=== PATIENT | male | born 1955 | race Caucasian/White ===

== ENCOUNTER 2016-05-23 09:27 | Emergency (ER) | payer OTHER ==
[2016-05-23] MEDS ORDERED: SODIUM CHLORIDE 0.9% 1,000 ML IV STA (09:53)
--- NOTE | 2016-05-23 09:56 | ED ---
General Adult HPI - General Chief complaint: Headache Stated complaint: Headache Time Seen by Provider: 05/23/16 09:45 Source: EMS, RN notes reviewed Mode of arrival: EMS Limitations: no limitations - History of Present Illness Initial comments: Patient is a 61-year-old male who presents emergency room today by EMS, the chief complaint of a headache to the left side. He states he woke up at 4 AM this morning with a headache and some symptoms of numbness tingling to the side. States he was concerned he's had similar symptoms with a TIA in the past. Patient states that headache has been consistent over the last 6 hours. Patient denies any other associated symptoms or complaints. He does admit to a fractured tooth of tooth #17. Patient does move to rhinorrhea. Denies any other complaints. Patient denies any recent fever, chills, shortness of breath, chest pain, back pain, abdominal pain, nausea or vomiting, dysuria or hematuria , constipation or diarrhea, visual changes, or any other complaints. - Related Data Home Medications Medication Instructions Recorded Confirmed amLODIPine BESYLATE [Amlodipine 10 mg PO DAILY 01/29/16 05/23/16 Besylate] metFORMIN HCL 1,000 mg PO AC-BID 01/29/16 05/23/16 Previous Rx's Medication Instructions Recorded Metoprolol Tartrate [Lopressor] 50 mg PO BID #60 tab 01/30/16 Amoxicillin/Potassium Clav 1 each PO Q12HR #20 tab 05/23/16 [Augmentin 875-125 Tablet] Fluticasone Propionate [Flonase 1 - 2 spray EA NOSTRIL DAILY 5 Days 05/23/16 Allergy Relief] Ibuprofen [Motrin] 600 mg PO Q6HR PRN #40 day 05/23/16 Allergies Allergy/AdvReac Type Severity Reaction Status Date / Time tomato Allergy Nausea & Verified 05/23/16 09:37 Vomiting Review of Systems ROS Statement: Those systems with pertinent positive or pertinent negative responses have been documented in the HPI. ROS Other: All systems not noted in ROS Statement are negative. Past Medical History Past Medical History: Atrial Fibrillation, Chest Pain / Angina, CVA/TIA, Diabetes Mellitus, GERD/Reflux, Hypertension, Pulmonary Embolus (PE) Additional Past Medical History / Comment(s): Recent admission 11/2015 with bacterial septicemia. Other HX: TIA, NIDDM type II, high cholesterol but not on med yet, PE L lung 2012, cervical disc disease with neck pain,scoliosis, epilepsy when a child- last known seizure at age 11 however pt sometimes wonders if he has had some since (he gets body shakes and confused on occasion) , occasional popping sound to L ear, diverticulitis, viral gastroenteritis .pt stated has bouts of diarrhea off and on. History of Any Multi-Drug Resistant Organisms: None Reported Past Surgical History: Appendectomy, Cholecystectomy Past Anesthesia/Blood Transfusion Reactions: Previous Problems w/ Anesthesia Additional Past Anesthesia/Blood Transfusion Reaction / Comment(s): after appendix removed sob Past Psychological History: Anxiety, Depression Additional Psychological History / Comment(s): Pt lives in an apartment alone.e. Sometimes his sister stays with him. He uses a cane to ambulate at times. He drives. His sister cleans his apt. 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 Denies recreational drug use. His left him many years ago he has adult children that he does not see very often. No experience. No travel history. No animal exposures Smoking Status: Never smoker Past Alcohol Use History: Occasional Additional Past Alcohol Use History / Comment(s): pt stated drinks only on occasion. He will then drink a beer. Past Drug Use History: None Reported - Past Family History Mother Family Medical History: COPD, CVA/TIA Additional Family Medical History / Comment(s): from a stroke Father Family Medical History: Pneumonia Additional Family Medical History / Comment(s): Father of pneumonia when he was close to 80 yrs old. General Exam - General Exam Comments Initial Comments: General: The patient is awake and alert, in no distress, and does not appear acutely ill. Eye: Pupils are equal, round and reactive to light, extra-ocular movements are intact. No nystagmus. There is normal conjunctiva bilaterally. No signs of icterus. Ears, nose, mouth and throat: There are moist mucous membranes and no oral lesions. Patient does have tenderness over tooth #17. Tenderness over the maxillary sinuses. TMs clear bilaterally. Neck: The neck is supple, there is no tenderness or JVD. Cardiovascular: There is a regular rate and rhythm. No murmur, rub or gallop is appreciated. Respiratory: Lungs are clear to auscultation, respirations are non-labored, breath sounds are equal. No wheezes, stridor, rales, or rhonchi. Musculoskeletal: Normal ROM, no tenderness. Strength 5/5. Sensation intact. Pulses equal bilaterally 2+. Neurological: A&O x 3. CN II-XII intact, There are no obvious motor or sensory deficits. Coordination appears grossly intact. Speech is normal. Normal finger nose testing. Normal rapid alternating movements. Strength 5/5 bilaterally both upper and lower extremity's. Normal gait. Skin: Skin is warm and dry and no rashes or lesions are noted. Sensation intact to light touch left-sided face. Psychiatric: Cooperative, appropriate mood & affect, normal judgment. Limitations: no limitations Course Vital Signs 05/23/16 05/23/16 09:34 10:04 Temperature 97.3 F L Pulse Rate 106 H 97 Respiratory 18 18 Rate Blood Pressure 168/106 160/93 O2 Sat by Pulse 95 93 L Oximetry Medical Decision Making - Medical Decision Making Patient reexamined at this time shows no signs of distress. Patient's CAT scan of head and facial bones reviewed. Does show evidence of some mucosal thickening of the left maxillary sinus. Remaining exam unremarkable for any acute ever maladies. Patient's labs been reviewed mild elevated AST and ALT. His discussed with attending physician Dr. Nix. Patient will be discharged home and placed on antibiotics cover for sinusitis and also dental pain tenderness over tooth #17. Advised follow-up with dentist next week. Advised follow-up the family doctor in the next 2-3 days. Advised return if any symptoms increase or worsen. Patient states understanding and is in agreement. - Lab Data Result diagrams: 05/23/16 10:03 05/23/16 10:03 Lab Results 05/23/16 05/23/16 Range/Units 10:03 10:03 WBC 6.2 (3.8-10.6) k/uL RBC 4.30 (4.30-5.90) m/uL Hgb 14.6 (13.0-17.5) gm/dL Hct 43.3 (39.0-53.0) % MCV 100.6 H (80.0-100.0) fL MCH 33.9 (25.0-35.0) pg MCHC 33.7 (31.0-37.0) g/dL RDW 14.0 (11.5-15.5) % Plt Count 146 L (150-450) k/uL Neutrophils % 81 % Lymphocytes % 10 % Monocytes % 7 % Eosinophils % 1 % Basophils % 1 % Neutrophils # 5.0 (1.3-7.7) k/uL Lymphocytes # 0.6 L (1.0-4.8) k/uL Monocytes # 0.4 (0-1.0) k/uL Eosinophils # 0.0 (0-0.7) k/uL Basophils # 0.0 (0-0.2) k/uL Macrocytosis Slight Sodium 145 (137-145) mmol/L Potassium 4.2 (3.5-5.1) mmol/L Chloride 104 (98-107) mmol/L Carbon Dioxide 26 (22-30) mmol/L Anion Gap 15 mmol/L BUN 8 L (9-20) mg/dL Creatinine 0.76 (0.66-1.25) mg/dL Est GFR (MDRD) Af Amer >60 (>60 ml/min/1.73 sqM) Est GFR (MDRD) Non-Af >60 (>60 ml/min/1.73 sqM) Glucose 187 H (74-99) mg/dL Calcium 9.0 (8.4-10.2) mg/dL Magnesium 1.9 (1.6-2.3) mg/dL Total Bilirubin 0.6 (0.2-1.3) mg/dL AST 140 H (17-59) U/L ALT 112 H (21-72) U/L Alkaline Phosphatase 105 (38-126) U/L Total Protein 8.5 H (6.3-8.2) g/dL Albumin 4.3 (3.5-5.0) g/dL Disposition Clinical Impression: Acute sinusitis, Pain, dental Disposition: HOME SELF-CARE Condition: Good Instructions: Sinusitis (ED) Additional Instructions: Without family doctor over the next 2-3 days. Please follow-up with the dentist next week as discussed. Please use antibiotic as prescribed. Please use Flonase as prescribed. Please order picker [id number] Sudafed for her symptoms as discussed. Please use Tylenol/Motrin as needed for pain. Please return to emergency room if any symptoms increase worsen or for any other concerns. Prescriptions: Amoxicillin/Potassium Clav [Augmentin 875-125 Tablet] 1 each PO Q12HR #20 tab Fluticasone Propionate [Flonase Allergy Relief] 1 - 2 spray EA NOSTRIL DAILY 5 Days Ibuprofen [Motrin] 600 mg PO Q6HR PRN #40 day PRN Reason: Pain Time of Disposition: 11:17
[2016-05-23 10:24] LABS: ALT 112 U/L (21-72); AST 140 U/L (17-59); Alkaline Phosphatase 105 U/L (38-126); Anion Gap 15 mmol/L; Blood Urea Nitrogen 8 mg/dL (9-20); Carbon Dioxide 26 mmol/L (22-30); Chloride 104 mmol/L (98-107); Glucose 187 mg/dL (74-99); Magnesium 1.9 mg/dL (1.6-2.3); Non-African American GFR(MDRD) >60 (>60 ml/min/1.73 sqM); Potassium 4.2 mmol/L (3.5-5.1); Sodium 145 mmol/L (137-145); Total Bilirubin 0.6 mg/dL (0.2-1.3); Total Protein 8.5 g/dL (6.3-8.2)
[2016-05-23 10:36] LABS: Basophils % (A) 1 %; CH 33.6; CHCM 33.5; Eosinophils % (A) 1 %; HCT 43.3 % (39.0-53.0); HGB 14.6 gm/dL (13.0-17.5); Luc # (Auto) 0.05; Luc % (Auto) 1; Lymphocytes # (A) 0.6 k/uL (1.0-4.8); Lymphocytes % (A) 10 %; MCH 33.9 pg (25.0-35.0); MCHC 33.7 g/dL (31.0-37.0); MCV 100.6 fL (80.0-100.0); Macrocytosis Slight; Mean Platelet Volume 7.5; Monocytes # (A) 0.4 k/uL (0-1.0); Monocytes % (A) 7 %; Neutrophils % (A) 81 %; WBC 6.2 k/uL (3.8-10.6); WBC (Perox) 6.49
--- NOTE | 2016-05-23 11:04 | CT ---
EXAMINATION TYPE: CT brain wo con, CT facial bones wo con DATE OF EXAM: 05/23/2016 10:55 AM COMPARISON: CT brain September 21, 2015 HISTORY: No contrast. Prior study on PACS. Patient having left sided facial numbness and pain across infraorbital area since yesterday. Patient having gagging sensation with vomiting. CT DLP: 1034 (accession [id number]), 639 (accession [id number]) mGycm. Automated Exposure Control for Do se Reduction was Utilized. TECHNIQUE: CT scan of the head and facial bones are performed without contrast. FINDINGS: There is no acute intracranial hemorrhage or midline shift identified. There is diffuse v entricular and sulcal prominence consistent with diffuse age-related cerebral atrophy. There is low- attenuation in the periventricular white matter consistent with chronic small vessel ischemic change. The calvarium is intact. The nasal bridge is intact. Nasal septum is maintained. Orbital floors and pak are intact. The glob es are intact bilaterally. Intraconal fat is preserved. The zygomatic arches are intact bilaterally. The pterygoid plates are intact. Visualized portion of mandible is intact. Temporomandibular joints a re maintained bilaterally. No suspicious opacification of mastoid air cells is seen. Patchy opacifica tion bilateral external auditory canals is felt to reflect cerumen. There is mild to moderate mucosal thickening inferiorly in left maxillary sinus otherwise paranasal sinuses are clear. IMPRESSION: 1. No acute intracranial hemorrhage or midline shift. There is mild diffuse age-related cerebral atr ophy and chronic small vessel ischemic change redemonstrated without significant change from prior. 2. There is no acute facial bone fracture or dislocation seen.
[2016-05-23] MEDS ORDERED: KETOROLAC 30 MG/ML 1 ML VIAL IVP STA (11:17)
[2016-05-23 11:43] VITALS: BP 160/92; PULSE 106; RESP 16; TEMP 98.6
== END 2016-05-23 11:42 | disposition home or self-care (01) ==
LOC: EC 09:27
DX: J01.90 Acute sinusitis, unspecified (principal); K08.89 Other specified disorders of teeth and supporting structures; Z79.84 Long term (current) use of oral hypoglycemic drugs; Z79.899 Other long term (current) drug therapy; I10 Essential (primary) hypertension; E11.9 Type 2 diabetes mellitus without complications; Z91.018 Allergy to other foods; Z86.73 Personal history of transient ischemic attack (TIA), and cerebral infarction without residual deficits
CPT/HCPCS: 96374; 96361; 99285; 36415; 80053; 83735; 85025; 70486; 70450; J1885

== ENCOUNTER 2016-09-01 20:50 | Observation (INO) | payer OTHER ==
[2016-09-01] MEDS ORDERED: ONDANSETRON 4 MG/2 ML VIAL IVP STA (21:10)
[2016-09-01] MEDS ORDERED: SODIUM CHLORIDE 0.9% 1,000 ML IV STA (21:10)
--- NOTE | 2016-09-01 21:14 | ED ---
General Adult HPI - General Source: patient, RN notes reviewed, old records reviewed Mode of arrival: EMS Limitations: no limitations <Rolando Shabazz - Last Filed: 09/01/16 22:57> <Boyd Hand - Last Filed: 09/01/16 23:16> - General Chief complaint: Headache Stated complaint: HEADACHE,NAUSEA Time Seen by Provider: 09/01/16 21:05 - History of Present Illness Initial comments: Patient is 61-year-old male with significant past history for CVA, who presents emergency room today by EMS, with chief complaint of symptoms of nausea vomiting with headache over the last 4 days. He does admit that symptoms of nausea vomiting started first. He does admit that he's had a headache located in the front of several past 3 days. He states that it is a sharp type pain located up front. He states had similar symptoms of nausea vomiting and headache a few years ago when he was told he had a mild stroke. Patient denies any other complaints or symptoms at this time. Patient denies any recent fever, chills, shortness of breath, chest pain, back pain, abdominal pain, numbness or tingling, dysuria or hematuria, constipation or diarrhea, visual changes, or any other complaints. (Rolando Shabazz) - Related Data Home Medications Medication Instructions Recorded Confirmed amLODIPine BESYLATE [Amlodipine 10 mg PO DAILY 01/29/16 09/01/16 Besylate] metFORMIN HCL 1,000 mg PO BID 01/29/16 09/01/16 Fluticasone Propionate [Flonase 1 spray EA NOSTRIL DAILY PRN 09/01/16 09/01/16 Allergy Relief] Previous Rx's Medication Instructions Recorded Metoprolol Tartrate [Lopressor] 50 mg PO BID #60 tab 01/30/16 Allergies Allergy/AdvReac Type Severity Reaction Status Date / Time tomato AdvReac Indigestion Verified 09/01/16 22:54 Review of Systems ROS Other: All systems not noted in ROS Statement are negative. <Rolando Shabazz - Last Filed: 09/01/16 22:57> ROS Other: All systems not noted in ROS Statement are negative. <Boyd Hand - Last Filed: 09/01/16 23:16> ROS Statement: Those systems with pertinent positive or pertinent negative responses have been documented in the HPI. Past Medical History Past Medical History: Atrial Fibrillation, Chest Pain / Angina, CVA/TIA, Diabetes Mellitus, GERD/Reflux, Hypertension, Pulmonary Embolus (PE) Additional Past Medical History / Comment(s): Recent admission 11/2015 with bacterial septicemia. Other HX: TIA, NIDDM type II, high cholesterol but not on med yet, PE L lung 2011, cervical disc disease with neck pain,scoliosis, epilepsy when a child- last known seizure at age 11 however pt sometimes wonders if he has had some since (he gets body shakes and confused on occasion) , occasional popping sound to L ear, diverticulitis, viral gastroenteritis .pt stated has bouts of diarrhea off and on. History of Any Multi-Drug Resistant Organisms: None Reported Past Surgical History: Appendectomy, Cholecystectomy Past Anesthesia/Blood Transfusion Reactions: Previous Problems w/ Anesthesia Additional Past Anesthesia/Blood Transfusion Reaction / Comment(s): after appendix removed sob Past Psychological History: Anxiety, Depression Additional Psychological History / Comment(s): Pt lives in an apartment alone.e. Sometimes his sister stays with him. He uses a cane to ambulate at times. He drives. His sister cleans his apt. 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 Denies recreational drug use. His left him many years ago he has adult children that he does not see very often. No experience. No travel history. No animal exposures Smoking Status: Never smoker Past Alcohol Use History: Occasional Additional Past Alcohol Use History / Comment(s): pt stated drinks only on occasion. He will then drink a beer. Past Drug Use History: None Reported - Past Family History Mother Family Medical History: COPD, CVA/TIA Additional Family Medical History / Comment(s): from a stroke Father Family Medical History: Pneumonia Additional Family Medical History / Comment(s): Father of pneumonia when he was close to 80 yrs old. <Rolando Shabazz - Last Filed: 09/01/16 22:57> General Exam Limitations: no limitations <Rolando Shabazz - Last Filed: 09/01/16 22:57> <Boyd Hand - Last Filed: 09/01/16 23:16> - General Exam Comments Initial Comments: General: The patient is awake and alert, in no distress, and does not appear acutely ill. Eye: Pupils are equal, round and reactive to light, extra-ocular movements are intact. No nystagmus. There is normal conjunctiva bilaterally. No signs of icterus. Ears, nose, mouth and throat: There are moist mucous membranes and no oral lesions. Neck: The neck is supple, there is no tenderness or JVD. Cardiovascular: There is a regular rate and rhythm. No murmur, rub or gallop is appreciated. Respiratory: Lungs are clear to auscultation, respirations are non-labored, breath sounds are equal. No wheezes, stridor, rales, or rhonchi. Gastrointestinal: Soft, non-distended, non-tender abdomen without masses or organomegaly noted. There is no rebound or guarding present. No CVA tenderness. Bowel sounds are unremarkable. Musculoskeletal: Normal ROM, no tenderness. Strength 5/5. Sensation intact. Pulses equal bilaterally 2+. Neurological: A&O x 3. CN II-XII intact, There are no obvious motor or sensory deficits. Coordination appears grossly intact. Speech is normal. Skin: Skin is warm and dry and no rashes or lesions are noted. Psychiatric: Cooperative, appropriate mood & affect, normal judgment. (Rolando Shabazz) EKG Findings - EKG Comments: EKG Findings:: EKG performed at 2142: Shows normal sinus rhythm at 90 bpm. NJ interval 168. QRS 80. QT/QTc 404/494. No acute ST changes. prolonged QT. <Rolando Shabazz - Last Filed: 09/01/16 22:57> Medical Decision Making - Lab Data Result diagrams: 09/01/16 21:30 09/01/16 21:30 <Rolando Shabazz - Last Filed: 09/01/16 22:57> - Lab Data Result diagrams: 09/01/16 21:30 09/01/16 21:30 <Boyd Hand - Last Filed: 09/01/16 23:16> - Medical Decision Making Patient's CT negative for any acute abnormalities. Patient's labs been reviewed mild elevation of AST ALT. Patient does have history of nausea vomiting with headache. Admits to history of a CVA with similar symptoms. Patient will be admitted for further observation. (Rolando Shabazz) Medical decision making. I reviewed the patient's history, EKG and past history and examined the patient at bedside. The patient has no focal or lateralizing findings. CAT scan was negative. No focal or lateralizing findings. I discussed the case with (Boyd Hand) - Lab Data Lab Results 09/01/16 09/01/16 09/01/16 Range/Units 21:30 21:30 21:30 WBC 6.7 (3.8-10.6) k/uL RBC 4.56 (4.30-5.90) m/uL Hgb 15.5 (13.0-17.5) gm/dL Hct 46.8 (39.0-53.0) % MCV 102.6 H (80.0-100.0) fL MCH 34.0 (25.0-35.0) pg MCHC 33.1 (31.0-37.0) g/dL RDW 14.4 (11.5-15.5) % Plt Count 129 L (150-450) k/uL Neutrophils % 72 % Lymphocytes % 18 % Monocytes % 8 % Eosinophils % 0 % Basophils % 1 % Neutrophils # 4.8 (1.3-7.7) k/uL Lymphocytes # 1.2 (1.0-4.8) k/uL Monocytes # 0.5 (0-1.0) k/uL Eosinophils # 0.0 (0-0.7) k/uL Basophils # 0.1 (0-0.2) k/uL Macrocytosis Slight PT (9.0-12.0) sec INR (<1.1) APTT (22.0-30.0) sec Sodium 136 L (137-145) mmol/L Potassium 4.1 (3.5-5.1) mmol/L Chloride 95 L (98-107) mmol/L Carbon Dioxide 28 (22-30) mmol/L Anion Gap 13 mmol/L BUN 8 L (9-20) mg/dL Creatinine 0.71 (0.66-1.25) mg/dL Est GFR (MDRD) Af Amer >60 (>60 ml/min/1.73 sqM) Est GFR (MDRD) Non-Af >60 (>60 ml/min/1.73 sqM) Glucose 146 H (74-99) mg/dL Calcium 10.3 H (8.4-10.2) mg/dL Total Bilirubin 1.5 H (0.2-1.3) mg/dL AST 190 H (17-59) U/L ALT 115 H (21-72) U/L Alkaline Phosphatase 93 (38-126) U/L Total Creatine Kinase 303 H (55-170) U/L CK-MB (CK-2) 1.5 (0.0-2.4) ng/mL CK-MB (CK-2) Rel Index 0.5 Troponin I 0.014 (0.000-0.034) ng/mL Total Protein 9.4 H (6.3-8.2) g/dL Albumin 4.5 (3.5-5.0) g/dL 09/01/16 Range/Units 21:30 WBC (3.8-10.6) k/uL RBC (4.30-5.90) m/uL Hgb (13.0-17.5) gm/dL Hct (39.0-53.0) % MCV (80.0-100.0) fL MCH (25.0-35.0) pg MCHC (31.0-37.0) g/dL RDW (11.5-15.5) % Plt Count (150-450) k/uL Neutrophils % % Lymphocytes % % Monocytes % % Eosinophils % % Basophils % % Neutrophils # (1.3-7.7) k/uL Lymphocytes # (1.0-4.8) k/uL Monocytes # (0-1.0) k/uL Eosinophils # (0-0.7) k/uL Basophils # (0-0.2) k/uL Macrocytosis PT 12.9 H (9.0-12.0) sec INR 1.3 (<1.1) APTT 27.3 (22.0-30.0) sec Sodium (137-145) mmol/L Potassium (3.5-5.1) mmol/L Chloride (98-107) mmol/L Carbon Dioxide (22-30) mmol/L Anion Gap mmol/L BUN (9-20) mg/dL Creatinine (0.66-1.25) mg/dL Est GFR (MDRD) Af Amer (>60 ml/min/1.73 sqM) Est GFR (MDRD) Non-Af (>60 ml/min/1.73 sqM) Glucose (74-99) mg/dL Calcium (8.4-10.2) mg/dL Total Bilirubin (0.2-1.3) mg/dL AST (17-59) U/L ALT (21-72) U/L Alkaline Phosphatase (38-126) U/L Total Creatine Kinase (55-170) U/L CK-MB (CK-2) (0.0-2.4) ng/mL CK-MB (CK-2) Rel Index Troponin I (0.000-0.034) ng/mL Total Protein (6.3-8.2) g/dL Albumin (3.5-5.0) g/dL Disposition Time of Disposition: 22:58 <Rolando Shabazz - Last Filed: 09/01/16 22:57> <Boyd Hand - Last Filed: 09/01/16 23:16> Clinical Impression: Headache Disposition: ADMITTED IP TO THIS HOSP Condition: Good Referrals: Doug Beck MD [Primary Care Provider] - 1-2 days
--- NOTE | 2016-09-01 21:33 | XR ---
EXAMINATION TYPE: XR chest 2V DATE OF EXAM: 09/01/2016 9:22 PM COMPARISON: 01/29/2016 HISTORY: Vomiting and headache TECHNIQUE: Frontal and lateral views of the chest are obtained. FINDINGS: There is no heart failure. There is coarse lung markings in the left lower lobe. The right lung is clear. There is no sign of pleural effusion. Thoracic aorta is atheromatous. IMPRESSION: Mild pulmonary fibrotic changes. No definite acute lung disease and no change compared t o old exam. Normal heart.
--- NOTE | 2016-09-01 21:41 | CT ---
EXAMINATION TYPE: CT brain wo con DATE OF EXAM: 09/01/2016 9:35 PM COMPARISON: 05/23/2016 HISTORY: Headache and nausea with vomiting x [address] DLP: 1171.00 mGycm Automated exposure control for dose reduction was used. FINDINGS: There is mild cerebral cortical atrophy. There is no mass effect nor midline shift. There is no sign of intracranial hemorrhage. The calvarium is intact. IMPRESSION: Mild atrophy. Otherwise negative head CT scan. No change.
[2016-09-01 21:56] LABS: Basophils # (A) 0.1 k/uL (0-0.2); Basophils % (A) 1 %; CH 34.7; Eosinophils % (A) 0 %; HCT 46.8 % (39.0-53.0); HDW 2.11; HGB 15.5 gm/dL (13.0-17.5); Luc # (Auto) 0.06; Luc % (Auto) 1; Lymphocytes # (A) 1.2 k/uL (1.0-4.8); Lymphocytes % (A) 18 %; MCHC 33.1 g/dL (31.0-37.0); MCV 102.6 fL (80.0-100.0); Macrocytosis Slight; Mean Platelet Volume 7.3; Monocytes # (A) 0.5 k/uL (0-1.0); Monocytes % (A) 8 %; Neutrophils # (A) 4.8 k/uL (1.3-7.7); Neutrophils % (A) 72 %; RBC 4.56 m/uL (4.30-5.90); RDW 14.4 % (11.5-15.5); WBC 6.7 k/uL (3.8-10.6); WBC (Perox) 6.48
[2016-09-01 22:08] LABS: ALT 115 U/L (21-72); AST 190 U/L (17-59); Alkaline Phosphatase 93 U/L (38-126); Anion Gap 13 mmol/L; Blood Urea Nitrogen 8 mg/dL (9-20); Calcium 10.3 mg/dL (8.4-10.2); Carbon Dioxide 28 mmol/L (22-30); Chloride 95 mmol/L (98-107); Glucose 146 mg/dL (74-99); Non-African American GFR(MDRD) >60 (>60 ml/min/1.73 sqM); Sodium 136 mmol/L (137-145); Total Bilirubin 1.5 mg/dL (0.2-1.3); Total Protein 9.4 g/dL (6.3-8.2)
[2016-09-01 22:09] LABS: INR 1.3 (<1.1); Partial Thromboplastin Time 27.3 sec (22.0-30.0); Potassium 4.1 mmol/L (3.5-5.1); Prothrombin Time 12.9 sec (9.0-12.0)
[2016-09-01 22:35] LABS: Creatine Kinase MB 1.5 ng/mL (0.0-2.4); Troponin I 0.014 ng/mL (0.000-0.034)
[2016-09-01] MEDS ORDERED: HYDROmorphone 1 MG/ML 1 ML SYRINGE IVP STA (22:53)
[2016-09-01] MEDS ORDERED: HYDROmorphone 1 MG/ML 1 ML SYRINGE IV PRN (22:54)
[2016-09-01] MEDS ORDERED: SODIUM CHLORIDE 0.9% 1,000 ML IV ONE (22:54)
[2016-09-01] MEDS ORDERED: ACETAMINOPHEN TAB 325 MG TAB PO PRN (22:54)
[2016-09-01] MEDS ORDERED: NALOXONE 0.4 MG/ML 1 ML VIAL IV PRN (22:54)
[2016-09-01] MEDS ORDERED: ENALAPRILAT 1.25 MG/ML 1 ML VIAL IVP PRN (23:17)
[2016-09-01] MEDS ORDERED: ENALAPRILAT 1.25 MG/ML 1 ML VIAL IVP STA (23:17)
--- NOTE | 2016-09-01 23:32 | US ---
EXAMINATION TYPE: US abdomen limited DATE OF EXAM: 09/01/2016 11:23 PM COMPARISON: NONE CLINICAL HISTORY: Pain. EXAM MEASUREMENTS: Liver Length: 16.3 cm Gallbladder Wall: Surgically absent cm CBD: 0.5 cm Right Kidney: 10.4 x 5.2 x 4.9 cm Pancreas: Obscured by bowel gas Liver: Heterogeneous, coarse echotexture Gallbladder: Surgically absent Evidence for sonographic Shaw's sign: No CBD: wnl Right Kidney: No hydronephrosis or masses seen IMPRESSION: Cholecystectomy. No dilated ducts.
[2016-09-01 23:51] LABS: Hepatitis B Surface Ag Index 0.06
[2016-09-01 23:56] LABS: Hepatitis B Core IgM Index 0.04
[2016-09-02 00:08] LABS: Hepatitis C Virus IgG Index 0.02
[2016-09-02 00:09] LABS: Hepatitis C Virus IgG Ab Negative (Negative)
[2016-09-02 00:33] VITALS: BMI 24.0
[2016-09-02 00:52] LABS: Glucose,Whole Blood 162 mg/dL (75-99)
[2016-09-02] MEDS: METOCLOPRAMIDE 5 MG/ML 2 ML VIAL IVP SCH ×2 (01:09→04:56)
[2016-09-02 07:03] LABS: Glucose,Whole Blood 94 mg/dL (75-99)
[2016-09-02 07:44] VITALS: BP 140/83; PULSE 72; RESP 18; TEMP 97.8
[2016-09-02 07:55] LABS: Basophils % (A) 1 %; CH 34.2; CHCM 33.3; Eosinophils # (A) 0.1 k/uL (0-0.7); Eosinophils % (A) 2 %; HDW 2.09; HGB 15.2 gm/dL (13.0-17.5); Luc # (Auto) 0.08; Luc % (Auto) 1; Lymphocytes # (A) 1.9 k/uL (1.0-4.8); Lymphocytes % (A) 34 %; MCH 33.6 pg (25.0-35.0); MCHC 32.5 g/dL (31.0-37.0); MCV 103.4 fL (80.0-100.0); Macrocytosis Slight; Mean Platelet Volume 7.3; Monocytes # (A) 0.4 k/uL (0-1.0); Monocytes % (A) 6 %; Neutrophils # (A) 3.2 k/uL (1.3-7.7); Neutrophils % (A) 57 %; RBC 4.54 m/uL (4.30-5.90); RDW 14.1 % (11.5-15.5); WBC 5.7 k/uL (3.8-10.6); WBC (Perox) 5.84
[2016-09-02 08:17] LABS: ALT 102 U/L (21-72); AST 159 U/L (17-59); Alkaline Phosphatase 84 U/L (38-126); Anion Gap 14 mmol/L; Blood Urea Nitrogen 9 mg/dL (9-20); Calcium 9.6 mg/dL (8.4-10.2); Carbon Dioxide 26 mmol/L (22-30); Chloride 98 mmol/L (98-107); Glucose 105 mg/dL (74-99); Non-African American GFR(MDRD) >60 (>60 ml/min/1.73 sqM); Potassium 3.8 mmol/L (3.5-5.1); Sodium 138 mmol/L (137-145); Total Bilirubin 1.9 mg/dL (0.2-1.3); Total Protein 8.6 g/dL (6.3-8.2)
--- NOTE | 2016-09-02 09:42 | P.HPIM ---
History of Present Illness H&P Date: 09/02/16 a 61-year-old male presented on the day of admission to the emergency room with a chief complaint of developing a headache. Patient activated the EMS system and [facility] Patient stated the symptoms started several days ago. He stated he felt nauseated and started vomiting. Patient states the headache is in the front part of the head. He describes it as a sharp pain. Patient stated that he did run out of his blood pressure medication.patient was seen in the emergency room was done noted to have mild elevation of the AST and ALT. Patient gives a history of having a prior CVA. The CAT scan of the brain obtained in the emergency room showed no acute abnormality. The EKG was unremarkable. The patient had no focal or lateralizing findings.in the emergency room the blood pressure is 154/91. Subsequently the patient was admitted to the services of the attending Review of Systems essentially unremarkable except for mentioned in the present illness Past Medical History Past Medical History: Atrial Fibrillation, Chest Pain / Angina, CVA/TIA, Diabetes Mellitus, GERD/Reflux, Hyperlipidemia, Hypertension, Pulmonary Embolus (PE) Additional Past Medical History / Comment(s): Recent admission 11/2015 with bacterial septicemia. Other HX: TIA, NIDDM type II, high cholesterol but not on med yet, PE L lung 2011, cervical disc disease with neck pain,scoliosis, epilepsy when a child- last known seizure at age 11 however pt sometimes wonders if he has had some since (he gets body shakes and confused on occasion) , occasional popping sound to L ear, diverticulitis, viral gastroenteritis .pt stated has bouts of diarrhea off and on. History of Any Multi-Drug Resistant Organisms: None Reported Past Surgical History: Appendectomy, Cholecystectomy Past Anesthesia/Blood Transfusion Reactions: Previous Problems w/ Anesthesia Additional Past Anesthesia/Blood Transfusion Reaction / Comment(s): after appendix removed sob Past Psychological History: Anxiety, Depression Additional Psychological History / Comment(s): Pt lives in an apartment alone.e. Sometimes his sister stays with him. He uses a cane to ambulate at times. He drives. His sister cleans his apt. 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 Denies recreational drug use. His left him many years ago he has adult children that he does not see very often. No experience. No travel history. No animal exposures Smoking Status: Never smoker Past Alcohol Use History: Occasional Additional Past Alcohol Use History / Comment(s): pt stated drinks only on occasion. He will then drink a beer. Past Drug Use History: None Reported - Past Family History Mother Family Medical History: COPD, CVA/TIA Additional Family Medical History / Comment(s): from a stroke Father Family Medical History: Pneumonia Additional Family Medical History / Comment(s): Father of pneumonia when he was close to 80 yrs old. Medications and Allergies Home Medications Medication Instructions Recorded Confirmed Type amLODIPine BESYLATE [Amlodipine 10 mg PO DAILY 01/29/16 09/02/16 History Besylate] metFORMIN HCL 1,000 mg PO BID 01/29/16 09/02/16 History Fluticasone Propionate [Flonase 1 spray EA NOSTRIL DAILY PRN 09/01/16 09/02/16 History Allergy Relief] Allergies Allergy/AdvReac Type Severity Reaction Status Date / Time egg Allergy Rash/Hives Verified 09/02/16 00:41 lisinopril Allergy Rash/Hives Verified 09/02/16 00:26 tomato AdvReac Indigestion Verified 09/01/16 22:54 surgical tape AdvReac Rash/Hives Uncoded 09/02/16 00:42 Physical Exam Vitals: Vital Signs Temp Pulse Pulse Resp BP BP Pulse Ox 09/02/16 07:42 97.8 F 72 18 140/83 96 09/02/16 04:00 98.1 F 58 L 16 131/86 94 L 09/02/16 00:43 97.8 F 85 16 154/91 92 L 09/02/16 00:00 16 09/01/16 23:41 75 16 150/98 98 09/01/16 23:10 85 16 178/95 98 Intake and Output 09/01/16 09/02/16 09/02/16 22:59 06:59 14:59 Intake Total 576 Balance 576 Intake: Oral 456 Tube Feeding 120 Other: Voiding Method Toilet Toilet Weight 65.7 kg GENERAL APPEARANCE: 61-year-old male patient is alert, oriented, in no acute distress.patient states headache is gone VITAL SIGNS: reviewed HEENT: Head is normocephalic and atraumatic. Pupils are equal and reactive. The nares are patent. Oropharynx is clear without lesions. NECK: Supple without lymphadenopathy. Traches midline. HEART: S1, S2. Regular rate and rhythm.denying chest pain no murmur monitor sinus LUNGS: No crackles or wheezes are heard.adequate air movement bilaterally on room air sats are greater than 95% ABDOMEN: Soft, nontender, nondistended with good bowel sounds. No peritoneal signs. No palpable organomegaly or masses. EXTREMITIES: Normal skin color and turgor. No cyanosis, rash, ulceration, clubbing or edema. Radial pedal pulses are 2/4 bilaterally.no pronator drift noted NEUROLOGICAL: No focal deficits. Strength and sensation are grossly intact. Results CBC & Chem 7: 09/02/16 07:28 09/02/16 07:28 Labs: Abnormal Lab Results - Last 24 Hours (Table) 09/02/16 09/02/16 09/02/16 Range/Units 00:40 07:28 07:28 MCV 103.4 H (80.0-100.0) fL Plt Count 132 L (150-450) k/uL Glucose 105 H (74-99) mg/dL POC Glucose (mg/dL) 162 H (75-99) mg/dL Total Bilirubin 1.9 H (0.2-1.3) mg/dL AST 159 H (17-59) U/L ALT 102 H (21-72) U/L Total Protein 8.6 H (6.3-8.2) g/dL Thrombosis Risk Factor Assmnt - Choose All That Apply Each Factor Represents 1 point: Age 41-60 years Thrombosis Risk Factor Assessment Total Risk Factor Score: 1 Thrombosis Risk Factor Assessment Level: Low Risk Assessment and Plan Plan: impression Present on admission nausea vomiting with frontal headache suspect due to hypertension urgency History of hypertension Present on admission hypertension urgency suspect due to noncompliant blood pressure meds ran out of blood pressure meds on admission 193/104 Present on admission mildly elevated AST and ALTwith a negative hepatitis panel Plan Restart home meds Stress the importance of compliant with taking medication as directed Prepped for discharge The above dictated assessment and findings were discussed with dr zhong Impression and the plan of care have been dictated as directed. Lily Moreno nurse practitioner acting as a scribe for dr zhong
--- NOTE | 2016-09-02 09:57 | P.DS ---
Providers Date of admission: 09/01/16 22:58 Expected date of discharge: 09/02/16 Attending physician: Doug Zhong Primary care physician: Doug Zhong [facility] Course: a 61-year-old male presented on the day of admission to the emergency room with a chief complaint of developing a headache. Patient activated the EMS system and was [facility] Patient stated the symptoms started several days ago. He stated he felt nauseated and started vomiting. Patient states the headache is in the front part of the head. He describes it as a sharp pain. Patient stated that he did run out of his blood pressure medication. patient was seen in the emergency room was done noted to have mild elevation of the AST and ALT. Patient gives a history of having a prior CVA. The CAT scan of the brain obtained in the emergency room showed no acute abnormality. The EKG was unremarkable. The patient had no focal or lateralizing findings.in the emergency room the blood pressure is 198/104. Subsequently the patient was admitted to the services of the attending patient lives in [place] with his sister in an apartment patient states he does not drink alcohol every day but occasionally will drink a beerit's noted that the patient was not on a cholesterol lowering drug secondary to the elevated AST and ALT impression Present on admission nausea vomiting with frontal headache suspect due to hypertension urgency History of hypertension Present on admission hypertension urgency suspect due to noncompliant blood pressure meds ran out of blood pressure meds on admission 193/104 Present on admission mildly elevated AST and ALTwith a negative hepatitis panel echocardiogram done in November 2015 left ventricular systolic function normal EF 55 -60% Type 2 diabetes non-insulin The above dictated assessment and findings were discussed with dr farheen Porter and the plan of care have been dictated as directed. Lily Moreno nurse practitioner acting as a scribe for dr zhong Patient Condition at Discharge: Good Plan - Discharge Summary New Discharge Prescriptions: Metoprolol Tartrate [Lopressor] 50 mg PO BID #60 tab amLODIPine BESYLATE [Norvasc] 10 mg PO DAILY #30 tablet metFORMIN HCL 1,000 mg PO BID #60 tablet Discharge Medication List amLODIPine BESYLATE [Amlodipine Besylate] 10 mg PO DAILY 01/29/16 [History] Fluticasone Propionate [Flonase Allergy Relief] 1 spray EA NOSTRIL DAILY PRN [History] Metoprolol Tartrate [Lopressor] 50 mg PO BID #60 tab 09/02/16 [Rx] amLODIPine BESYLATE [Norvasc] 10 mg PO DAILY #30 tablet 09/02/16 [Rx] metFORMIN HCL 1,000 mg PO BID #60 tablet 09/02/16 [Rx] Follow up Appointment(s)/Referral(s): Doug Zhong MD [Primary Care Provider] - 1-2 days Discharge Disposition: HOME SELF-CARE
--- NOTE | 2016-09-02 16:56 | HP ---
DATE OF ADMISSION: 09/01/2016 CHIEF COMPLAINT: Headache and uncontrolled hypertension. HISTORY OF PRESENT ILLNESS: This is another admission for this 61-year-old white male with hypertension who also drinks. He also has some personality issues. He came to the emergency room with a headache and elevated blood pressure. He had been drinking. He also apparently had some nausea and vomiting. REVIEW OF SYSTEMS: He denies any focal neurologic deficits, change in vision or hearing, cough, hemoptysis, orthopnea, PND, angina, murmurs, rheumatic fever, abdominal pain, hematemesis, melena, hematochezia, jaundice, pancreatitis, renal disease, dysuria, frequency, urgency, diabetes, etc. Past medical history, family history, and personal and social histories reveal that he has had been on: 1. Vicodin p.r.n. 2. Flexeril p.r.n. 3. Ibuprofen 800 mg q.i.d. p.r.n. 4. Norvasc 10 mg twice a day. 5. Metoprolol 50 mg twice a day. 6. Metformin 1 gram twice a day. Remainder of his history is unremarkable. He does not disclose how much he drinks. He has never smoked. He apparently has run out of one or both of his antihypertensives. PHYSICAL EXAMINATION: Blood pressure is 185/90 with a pulse of 77, respirations of 34, and he is afebrile. In general he appeared to be somewhat disheveled and in no acute distress. Skin was dry and lymph nodes were not enlarged. Head, ears, eyes, nose, mouth and throat were normal. Neck veins were not distended. Thyroid was not enlarged. Chest was clear. Cardiac exam demonstrated sinus tachycardia with no murmurs or extra sounds. Abdomen was soft and nontender without visceromegaly or masses. Bowel sounds were present. Extremities were normal. Neurologically he was intact. IMPRESSION: 1. Headache. 2. Uncontrolled hypertension. 3. Alcoholism. PLAN: 1. Bed rest. 2. IV fluids. 3. Control hypertension.
--- NOTE | 2016-09-02 16:58 | PN ---
CHIEF COMPLAINT: Hypertension and headache. HISTORY OF PRESENT ILLNESS: This gentleman is doing much better. Blood pressure is down. He is not having any further headache. PHYSICAL EXAMINATION: Chest is clear. Cardiac exam is normal. Abdomen is soft, nontender. IMPRESSION: 1. Hypertension. 2. Alcoholism. 3. Type 2 [id number] diabetes mellitus. PLAN: Home later today if his blood pressure stays under control. This will be arranged by the nurse practitioner.
== END 2016-09-02 11:40 | disposition home or self-care (01) ==
LOC: EC 20:50 → 3OBS 22:58
PROVIDERS: ADMIT Family Medicine; ATTEND Family Medicine
DX: I16.0 Hypertensive urgency (principal); R51 Headache; R11.2 Nausea with vomiting, unspecified; I10 Essential (primary) hypertension; Z91.14 Patient's other noncompliance with medication regimen; R74.8 Abnormal levels of other serum enzymes; E11.9 Type 2 diabetes mellitus without complications; F10.20 Alcohol dependence, uncomplicated; Z79.84 Long term (current) use of oral hypoglycemic drugs; Z79.899 Other long term (current) drug therapy; Z86.711 Personal history of pulmonary embolism; Z86.73 Personal history of transient ischemic attack (TIA), and cerebral infarction without residual deficits
CPT/HCPCS: 96374 ×2; 96375 ×2; 96361 ×3; 99285 ×2; 36415; 93005; 80053 ×2; 80074; 82550; 82553; 84484; 85025 ×2; 85610; 85730; 71020; 76705; 70450; G0378 ×2; J2765; J2405; J1170; 96376

== ENCOUNTER 2016-10-08 11:14 | Inpatient (IN) | payer OTHER ==
[2016-10-08] MEDS ORDERED: methylPREDNISolone SOD SUCCI 125 MG/2 ML VIAL IV STA (11:19)
--- NOTE | 2016-10-08 11:22 | ED ---
SOB HPI - General Stated Complaint: Difficulty Breathing Time Seen by Provider: 10/08/16 11:14 Source: patient, EMS, RN notes reviewed, old records reviewed Mode of arrival: EMS - History of Present Illness Initial Comments: This is a [id number] male who presents by EMS with complaints of shortness of breath that started this morning. He did has some chest tightness along with it. He did have a momentary syncopal episode as he had some lightheadedness he did not hurt himself when he went down. It was very brief he got relief only after he was given oxygen and an updraft treatment. He is evidence history of COPD also history of diabetes he also has a history of hypertension he denies smoking he does drink occasional alcohol. He states he does have a nebulizer machine at home but no medicine put in it. He's had previous presentations with the same scenario in the past. MD Complaint: shortness of breath, chest pain - Related Data Home Medications Medication Instructions Recorded Confirmed Aspirin 325 mg PO DAILY 10/08/16 10/08/16 Previous Rx's Medication Instructions Recorded Metoprolol Tartrate [Lopressor] 50 mg PO BID #60 tab 09/02/16 amLODIPine BESYLATE [Norvasc] 10 mg PO DAILY #30 tablet 09/02/16 metFORMIN HCL 1,000 mg PO BID #60 tablet 09/02/16 Allergies Allergy/AdvReac Type Severity Reaction Status Date / Time egg Allergy Rash/Hives Verified 10/08/16 12:07 lisinopril Allergy Rash/Hives Verified 10/08/16 12:07 tomato AdvReac Indigestion Verified 10/08/16 12:07 surgical tape AdvReac Rash/Hives Uncoded 10/08/16 11:25 Review of Systems ROS Statement: Those systems with pertinent positive or pertinent negative responses have been documented in the HPI. ROS Other: All systems not noted in ROS Statement are negative. Past Medical History Past Medical History: Atrial Fibrillation, Chest Pain / Angina, CVA/TIA, Diabetes Mellitus, GERD/Reflux, Hyperlipidemia, Hypertension, Pulmonary Embolus (PE) Additional Past Medical History / Comment(s): Recent admission 11/2015 with bacterial septicemia. Other HX: TIA, NIDDM type II, high cholesterol but not on med yet, PE L lung 2011, cervical disc disease with neck pain,scoliosis, epilepsy when a child- last known seizure at age 11 however pt sometimes wonders if he has had some since (he gets body shakes and confused on occasion) , occasional popping sound to L ear, diverticulitis, viral gastroenteritis .pt stated has bouts of diarrhea off and on. History of Any Multi-Drug Resistant Organisms: None Reported Past Surgical History: Appendectomy, Cholecystectomy Past Anesthesia/Blood Transfusion Reactions: Previous Problems w/ Anesthesia Additional Past Anesthesia/Blood Transfusion Reaction / Comment(s): after appendix removed sob Past Psychological History: Anxiety, Depression Additional Psychological History / Comment(s): Pt lives in an apartment alone.e. Sometimes his sister stays with him. He uses a cane to ambulate at times. He drives. His sister cleans his apt. 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 Denies recreational drug use. His left him many years ago he has adult children that he does not see very often. No experience. No travel history. No animal exposures Smoking Status: Never smoker Past Alcohol Use History: Occasional Additional Past Alcohol Use History / Comment(s): pt stated drinks only on occasion. He will then drink a beer. Past Drug Use History: None Reported - Past Family History Mother Family Medical History: COPD, CVA/TIA Additional Family Medical History / Comment(s): from a stroke Father Family Medical History: Pneumonia Additional Family Medical History / Comment(s): Father of pneumonia when he was close to 80 yrs old. General Exam - General Exam Comments Initial Comments: This is a well-developed well-nourished awake alert oriented 3 male General appearance: alert, anxious Head exam: Present: atraumatic, normocephalic, normal inspection Eye exam: Present: normal appearance, PERRL, EOMI. Absent: scleral icterus, conjunctival injection, periorbital swelling ENT exam: Present: normal exam, mucous membranes moist Neck exam: Present: normal inspection. Absent: tenderness, meningismus, lymphadenopathy Respiratory exam: Present: decreased breath sounds. Absent: respiratory distress, wheezes, rales, rhonchi, stridor Cardiovascular Exam: Present: regular rate, normal rhythm, normal heart sounds. Absent: systolic murmur, diastolic murmur, rubs, gallop, clicks GI/Abdominal exam: Present: soft, normal bowel sounds. Absent: distended, tenderness, guarding, rebound, rigid Extremities exam: Present: normal inspection, full ROM, normal capillary refill. Absent: tenderness, pedal edema, joint swelling, calf tenderness Back exam: Present: normal inspection Neurological exam: Present: alert, oriented X3, CN II-XII intact Psychiatric exam: Present: normal affect, normal mood Skin exam: Present: warm, dry, intact, normal color. Absent: rash Course Vital Signs 10/08/16 10/08/16 10/08/16 11:15 12:02 12:25 Temperature 97.2 F L Pulse Rate 110 H 115 H 134 H Respiratory 22 18 22 Rate Blood Pressure 161/83 149/86 149/86 O2 Sat by Pulse 99 95 96 Oximetry 10/08/16 10/08/16 13:38 15:13 Temperature Pulse Rate 120 H 114 H Respiratory 22 20 Rate Blood Pressure 141/85 135/77 O2 Sat by Pulse 95 95 Oximetry - Reevaluation(s) Reevaluation #1: 10/08/16 12:42 Patient is complaining of some nausea and tightness EKG was done rate was 118 care 150 QRS duration 72 QT/QTC of 320/[address]-T wave changes seen this is compared with the earlier EKG. Reevaluation #2: 10/08/16 15:47 The patient had recurrent discomfort across his chest that did get somewhat better with nitroglycerin. Medical Decision Making - Medical Decision Making The patient have recurrent episodes of chest discomfort though no EKG changes other than tachycardia. I did discuss case with him and with his doctor patient be admitted with serial EKGs and troponins. - Lab Data Result diagrams: 10/08/16 11:30 10/08/16 11:30 Lab Results 10/08/16 10/08/16 10/08/16 Range/Units 11:29 11:30 11:30 WBC 5.5 (3.8-10.6) k/uL RBC 4.40 (4.30-5.90) m/uL Hgb 15.2 (13.0-17.5) gm/dL Hct 44.7 (39.0-53.0) % MCV 101.7 H (80.0-100.0) fL MCH 34.6 (25.0-35.0) pg MCHC 34.0 (31.0-37.0) g/dL RDW 14.2 (11.5-15.5) % Plt Count 181 (150-450) k/uL Neutrophils % 56 % Lymphocytes % 34 % Monocytes % 7 % Eosinophils % 1 % Basophils % 1 % Neutrophils # 3.1 (1.3-7.7) k/uL Lymphocytes # 1.9 (1.0-4.8) k/uL Monocytes # 0.4 (0-1.0) k/uL Eosinophils # 0.1 (0-0.7) k/uL Basophils # 0.0 (0-0.2) k/uL Macrocytosis Slight PT (9.0-12.0) sec INR (<1.1) APTT (22.0-30.0) sec D-Dimer (<0.60) mg/L FEU Sodium (137-145) mmol/L Potassium (3.5-5.1) mmol/L Chloride (98-107) mmol/L Carbon Dioxide (22-30) mmol/L Anion Gap mmol/L BUN (9-20) mg/dL Creatinine (0.66-1.25) mg/dL Est GFR (MDRD) Af Amer (>60 ml/min/1.73 sqM) Est GFR (MDRD) Non-Af (>60 ml/min/1.73 sqM) Glucose (74-99) mg/dL POC Glucose (mg/dL) 132 H (75-99) mg/dL POC Glu Rehab Physician ID Sol Belcher Calcium (8.4-10.2) mg/dL Magnesium (1.6-2.3) mg/dL Total Bilirubin (0.2-1.3) mg/dL AST (17-59) U/L ALT (21-72) U/L Alkaline Phosphatase (38-126) U/L Total Creatine Kinase 161 (55-170) U/L CK-MB (CK-2) 0.6 (0.0-2.4) ng/mL CK-MB (CK-2) Rel Index 0.4 Troponin I <0.012 (0.000-0.034) ng/mL NT-Pro-B Natriuret Pep pg/mL Total Protein (6.3-8.2) g/dL Albumin (3.5-5.0) g/dL 05/10/08/16 10/08/16 Range/Units 11:30 11:30 11:30 WBC (3.8-10.6) k/uL RBC (4.30-5.90) m/uL Hgb (13.0-17.5) gm/dL Hct (39.0-53.0) % MCV (80.0-100.0) fL MCH (25.0-35.0) pg MCHC (31.0-37.0) g/dL RDW (11.5-15.5) % Plt Count (150-450) k/uL Neutrophils % % Lymphocytes % % Monocytes % % Eosinophils % % Basophils % % Neutrophils # (1.3-7.7) k/uL Lymphocytes # (1.0-4.8) k/uL Monocytes # (0-1.0) k/uL Eosinophils # (0-0.7) k/uL Basophils # (0-0.2) k/uL Macrocytosis PT 12.5 H (9.0-12.0) sec INR 1.3 (<1.1) APTT 28.4 (22.0-30.0) sec D-Dimer 0.52 (<0.60) mg/L FEU Sodium 143 (137-145) mmol/L Potassium 3.8 (3.5-5.1) mmol/L Chloride 105 (98-107) mmol/L Carbon Dioxide 23 (22-30) mmol/L Anion Gap 15 mmol/L BUN 5 L (9-20) mg/dL Creatinine 0.77 (0.66-1.25) mg/dL Est GFR (MDRD) Af Amer >60 (>60 ml/min/1.73 sqM) Est GFR (MDRD) Non-Af >60 (>60 ml/min/1.73 sqM) Glucose 140 H (74-99) mg/dL POC Glucose (mg/dL) (75-99) mg/dL POC Glu Rehab Physician ID Calcium 9.2 (8.4-10.2) mg/dL Magnesium 1.4 L (1.6-2.3) mg/dL Total Bilirubin 0.8 (0.2-1.3) mg/dL AST 220 H (17-59) U/L ALT 93 H (21-72) U/L Alkaline Phosphatase 115 (38-126) U/L Total Creatine Kinase (55-170) U/L CK-MB (CK-2) (0.0-2.4) ng/mL CK-MB (CK-2) Rel Index Troponin I (0.000-0.034) ng/mL NT-Pro-B Natriuret Pep 52 pg/mL Total Protein 8.6 H (6.3-8.2) g/dL Albumin 4.2 (3.5-5.0) g/dL - EKG Data -: EKG Interpreted by Me EKG shows normal: sinus rhythm (Initial EKG showed a sinus tachycardia rate 113. We'll 144 QRS duration 74 QT/QTC of 3:30/463 pulses criteria for LVH no acute ST-T wave changes otherwise) - Radiology Data Radiology results: report reviewed (X-ray revealed no acute findings.), image reviewed Critical Care Time Critical Care Time: Yes Critical Care Time: 32 minutes of critical care time which includes initial presentation with discussed with paramedics and monitoring radio call history physical lab and x- rays reevaluation patient several occasions discussion with the patient and his physician. Admission orders and documentation of the above. Disposition Clinical Impression: Unstable angina, Chest pain, Bronchospasm, Tachycardia Disposition: ADMITTED IP TO THIS [facility] Condition: Stable Referrals: Doug Beck MD [Primary Care Provider] - 1-2 days Decision Time: 14:40
[2016-10-08 11:33] LABS: Glucose,Whole Blood 132 mg/dL (75-99)
[2016-10-08 11:46] LABS: Basophils % (A) 1 %; CH 34.3; CHCM 33.9; Eosinophils # (A) 0.1 k/uL (0-0.7); Eosinophils % (A) 1 %; HCT 44.7 % (39.0-53.0); HGB 15.2 gm/dL (13.0-17.5); Luc # (Auto) 0.12; Luc % (Auto) 2; Lymphocytes # (A) 1.9 k/uL (1.0-4.8); Lymphocytes % (A) 34 %; MCH 34.6 pg (25.0-35.0); MCV 101.7 fL (80.0-100.0); Macrocytosis Slight; Mean Platelet Volume 7.3; Monocytes # (A) 0.4 k/uL (0-1.0); Monocytes % (A) 7 %; Neutrophils # (A) 3.1 k/uL (1.3-7.7); Neutrophils % (A) 56 %; RDW 14.2 % (11.5-15.5); WBC 5.5 k/uL (3.8-10.6); WBC (Perox) 5.31
[2016-10-08 11:54] LABS: ALT 93 U/L (21-72); AST 220 U/L (17-59); Alkaline Phosphatase 115 U/L (38-126); Anion Gap 15 mmol/L; Blood Urea Nitrogen 5 mg/dL (9-20); Calcium 9.2 mg/dL (8.4-10.2); Carbon Dioxide 23 mmol/L (22-30); Chloride 105 mmol/L (98-107); Glucose 140 mg/dL (74-99); Magnesium 1.4 mg/dL (1.6-2.3); Non-African American GFR(MDRD) >60 (>60 ml/min/1.73 sqM); Potassium 3.8 mmol/L (3.5-5.1); Sodium 143 mmol/L (137-145); Total Bilirubin 0.8 mg/dL (0.2-1.3); Total Protein 8.6 g/dL (6.3-8.2)
--- NOTE | 2016-10-08 12:02 | XR ---
EXAMINATION TYPE: XR chest 2V DATE OF EXAM: 10/08/2016 11:56 AM COMPARISON: 09/01/2016 HISTORY: Shortness of breath TECHNIQUE: Frontal and lateral views of the chest are obtained. FINDINGS: Scattered senescent parenchymal changes noted. Hyperinflation compatible with COPD. No evidence for infiltrate. No evidence for atelectasis. Heart size is stable. Mediastinal structures are stable and grossly unremarkable. No evidence for hilar prominence. Degenerative changes dorsal spine. IMPRESSION: 1. No evidence for acute pulmonary disease.
[2016-10-08 12:09] LABS: Creatine Kinase 161 U/L (55-170)
[2016-10-08 12:21] LABS: Creatine Kinase MB 0.6 ng/mL (0.0-2.4); Troponin I <0.012 ng/mL (0.000-0.034)
[2016-10-08] MEDS ORDERED: ONDANSETRON 4 MG/2 ML VIAL IVP STA (12:29)
[2016-10-08 12:42] LABS: INR 1.3 (<1.1); Partial Thromboplastin Time 28.4 sec (22.0-30.0); Prothrombin Time 12.5 sec (9.0-12.0)
[2016-10-08] MEDS ORDERED: MAGNESIUM SULFATE-D5W PMX 1 GM in DEXTROSE/WATER 1 100ML.BAG IVPB ONE ×2 (13:30→17:00)
[2016-10-08] MEDS ORDERED: NITROGLYCERIN SL TABS 0.4 MG TAB SUBLINGUAL STA (13:43)
[2016-10-08] MEDS ORDERED: NITROGLYCERIN SL TABS 0.4 MG TAB SUBLINGUAL PRN (15:49)
[2016-10-08] MEDS ORDERED: HEPARIN SODIUM,PORCINE 5,000 UNIT/ML 1 ML VIAL IV ONE (15:49)
[2016-10-08] MEDS ORDERED: HEPARIN SODIUM,PORCINE/D5W PMX 25,000 UNIT in DEXTROSE/WATER 1 500ML.BAG IV SCH (16:00)
[2016-10-08] MEDS: SODIUM CHLORIDE 0.9% 1,000 ML IV SCH (16:15)
[2016-10-08] MEDS: INSULIN LISPRO (humaLOG) 300 UNIT/3 ML VIAL SQ SCH ×2 (17:11→20:28)
[2016-10-08] MEDS: NITROGLYCERIN OINT 1 INCH/GM PACKET TOPICAL SCH ×2 (17:11→23:25)
[2016-10-08 17:17] LABS: Glucose,Whole Blood 167 mg/dL (75-99)
[2016-10-08 18:37] LABS: Creatine Kinase 168 U/L (55-170)
[2016-10-08 18:51] LABS: Creatine Kinase MB 0.6 ng/mL (0.0-2.4); Troponin I <0.012 ng/mL (0.000-0.034)
[2016-10-08 19:30] LABS: Hemoglobin A1C 5.6 % (4.2-6.1)
[2016-10-08] MEDS: METOPROLOL TARTRATE 50 MG TAB PO SCH (19:43)
[2016-10-08] MEDS: metFORMIN 500 MG TAB PO SCH (20:28)
[2016-10-08 20:44] LABS: Glucose,Whole Blood 203 mg/dL (75-99)
[2016-10-08] MEDS: ONDANSETRON 4 MG/2 ML VIAL IVP PRN (21:00)
--- NOTE | 2016-10-08 23:01 | HP ---
CHIEF COMPLAINT: Shortness of breath and chest pains. HISTORY OF PRESENT ILLNESS: This is another recent admission for this 61-year-old white male who probably has schizoaffective disorder. He also has a history of hypertension and diabetes, but is not compliant. He presented to the emergency room with shortness of breath and chest discomfort with normal studies and was admitted for observation. REVIEW OF SYSTEMS: He has had no other complaints, including diaphoresis, nausea, vomiting, etc. Past medical history, family history, personal and social histories are stable. He is not allergic to any medication. He takes: 1. Vicodin. 2. Flexeril. 3. Ibuprofen. 4. Norvasc. 5. Metoprolol. 6. Metformin. The remainder of his history is unremarkable. He does have cardiovascular disease in his family. PHYSICAL EXAMINATION: VITAL SIGNS: Blood pressure 118/70, pulse 68, respirations 16, temperature 98. GENERAL: Appeared to be well-developed, well-nourished and in no acute distress. Skin color was normal. Skin was warm and dry. Lymph nodes were not enlarged. Head and ears, eyes, nose, mouth and throat were normal. Neck veins not distended. Carotids are normal. CHEST: Clear. There are no rales or rhonchi. CARDIAC: Normal sinus rhythm and there are no rubs or extra sounds. There are no murmurs. ABDOMEN: Soft, nontender, without any visceromegaly or masses. EXTREMITIES: Normal. NEUROLOGIC: Intact. IMPRESSION: 1. Shortness of breath. 2. Chest pain. 3. Hypertension. 4. Type 2 diabetes. PLAN: 1. Bed rest. 2. IV fluids. 3. Serial EKGs and enzymes.
[2016-10-08 23:50] LABS: Creatine Kinase 167 U/L (55-170)
[2016-10-09 00:04] LABS: Creatine Kinase MB 0.7 ng/mL (0.0-2.4); Troponin I <0.012 ng/mL (0.000-0.034)
[2016-10-09] MEDS: ONDANSETRON 4 MG/2 ML VIAL IVP PRN (03:35)
[2016-10-09 05:15] VITALS: RESP 18
[2016-10-09 06:06] LABS: Magnesium 1.9 mg/dL (1.6-2.3)
[2016-10-09 06:32] LABS: Glucose,Whole Blood 132 mg/dL (75-99)
[2016-10-09] MEDS: NITROGLYCERIN OINT 1 INCH/GM PACKET TOPICAL SCH (06:39)
[2016-10-09] MEDS: INSULIN LISPRO (humaLOG) 300 UNIT/3 ML VIAL SQ SCH ×2 (07:27→12:04)
--- NOTE | 2016-10-09 08:41 | P.PN ---
Subjective 61-year-old male seen evaluated this morning patient is sitting up in bed. Patient is well known to dr Kiran todd. Patient states he has not been able to make any follow-up office appointment has no transportation whenever he sets up a ride they don't show up. Patient states that on the day of the event and felt diaphoretic shaky with chest tightness. Patient stated that he did walk down some stairs felt dizzy lightheaded and fell down" it didn' t hurt myself. Patient states that he does have a nebulizer machine at home but he has no medication at this not drink alcohol is a nonsmoker. Patient states he's been compliant with taking his blood pressure medication. Patient stated that he did check his blood sugar in the morning and it was 98 and he has been compliant with eating. Patient stated that he activated the EMS system because he felt short of breath in the morning with chest tightness. In the emergency room patient's heart rate was up to 120. The blood pressure 141/ 83. Sats are 99% on room air patient was afebrile. The 12-lead EKG showed no acute changes showed sinus heart rate 110s trops times to have been negative currently this morning the patient is noted to have a dry nonproductive cough monitor showing sinus rate in the 90s currently denying chest pain patient is anxious in appearance Patient states that he lives in [place] in an apartment with a sister living close by exposed secondhand smoke patient states that he is not able to find a physician in the community he lives in due to his insurance issues. Additionally the patient states he was to see a counselor for his depressive disorder but did not make the appointment because he had no transportation Objective - Vital Signs Vital signs: Vital Signs Temp 98.7 F 10/09/16 04:00 Pulse 83 10/09/16 04:00 Resp 18 10/09/16 04:00 BP 141/80 10/09/16 04:00 Pulse Ox 92 L 10/09/16 04:00 Intake & Output 10/08/16 10/09/16 10/09/16 18:59 06:59 18:59 Intake Total 100 341.419 Balance 100 341.419 Weight 82.1 kg 82 kg Intake: IV 200 Sodium Chloride 0.9% 1, 200 000 ml @ 20 mls/hr IV . Q24H [facility] Rx#:[id number] Intake, IV Titration 100 141.419 Amount Heparin Sodium,Porcine/ 141.419 D5w Pmx 25,000 unit In Dextrose/Water 1 500ml. bag @ 12 UNITS/KG/HR 18. 94 mls/hr IV .Q24H [facility] Rx #:[id number] Magnesium Sulfate-D5w Pmx 100 1 gm In Dextrose/Water 1 100ml.bag @ 100 mls/hr IVPB ONCE ONE Rx#: [id number] Other: Voiding Method Toilet # Voids 0 1 - Exam Physical exam 61-year-old male sitting up in bed pleasant cooperative oriented 3 states feels slightly anxious Lungs diminished at the bases otherwise adequate air movement a dry nonproductive cough noted sats on room air 92-94% no wheezing noted Heart S1-S2 audible regular monitor sinus rate in the 90s currently denying chest pain when questioning Abdomen soft nontender not distended bowel tones present currently denying any frequent stooling no difficulty in urinating Extremities no edema noted no calf Tenderness - Labs CBC & Chem 7: 10/08/16 11:30 10/08/16 11:30 Labs: Abnormal Lab Results - Last 24 Hours (Table) 10/08/16 10/08/16 10/08/16 Range/Units 11:29 11:30 11:30 MCV 101.7 H (80.0-100.0) fL PT (9.0-12.0) sec APTT (22.0-30.0) sec BUN 5 L (9-20) mg/dL Glucose 140 H (74-99) mg/dL POC Glucose (mg/dL) 132 H (75-99) mg/dL Magnesium 1.4 L (1.6-2.3) mg/dL AST 220 H (17-59) U/L ALT 93 H (21-72) U/L Total Protein 8.6 H (6.3-8.2) g/dL Cholesterol (<200) mg/dL LDL Cholesterol, Calc (0-99) mg/dL HDL Cholesterol (40-60) mg/dL 10/08/16 10/08/16 10/08/16 Range/Units 11:30 16:56 20:27 MCV (80.0-100.0) fL PT 12.5 H (9.0-12.0) sec APTT (22.0-30.0) sec BUN (9-20) mg/dL Glucose (74-99) mg/dL POC Glucose (mg/dL) 167 H 203 H (75-99) mg/dL Magnesium (1.6-2.3) mg/dL AST (17-59) U/L ALT (21-72) U/L Total Protein (6.3-8.2) g/dL Cholesterol (<200) mg/dL LDL Cholesterol, Calc (0-99) mg/dL HDL Cholesterol (40-60) mg/dL 10/08/16 10/09/16 10/09/16 Range/Units 23:17 05:31 05:31 MCV (80.0-100.0) fL PT (9.0-12.0) sec APTT 54.4 H 50.6 H (22.0-30.0) sec BUN (9-20) mg/dL Glucose (74-99) mg/dL POC Glucose (mg/dL) (75-99) mg/dL Magnesium (1.6-2.3) mg/dL AST (17-59) U/L ALT (21-72) U/L Total Protein (6.3-8.2) g/dL Cholesterol 259 H (<200) mg/dL LDL Cholesterol, Calc 167 H (0-99) mg/dL HDL Cholesterol 77 H (40-60) mg/dL 10/09/16 Range/Units 06:25 MCV (80.0-100.0) fL PT (9.0-12.0) sec APTT (22.0-30.0) sec BUN (9-20) mg/dL Glucose (74-99) mg/dL POC Glucose (mg/dL) 132 H (75-99) mg/dL Magnesium (1.6-2.3) mg/dL AST (17-59) U/L ALT (21-72) U/L Total Protein (6.3-8.2) g/dL Cholesterol (<200) mg/dL LDL Cholesterol, Calc (0-99) mg/dL HDL Cholesterol (40-60) mg/dL Assessment and Plan Plan: Impression Present on admission shortness of breath tachycardic Hypertension essential Type 2 diabetes non-insulin insulin controlled hemoglobin A1c 5.6 History of an ALLERGIC reaction to CHRIS inhibitor Hyperlipidemia Anxiety depressive disorder nonspecified Present on admission hypo-magnesium magnesium 1.4 corrected to 1.9 Mildly Elevated AST and ALT chronic with a recent hepatitis panel negative Issues of noncompliant with medication and follow-up with the lack of social support Plan pin worker to provide patient with information for physicians within his community for patient to follow-up with Await cardiology input Resume home meds as appropriate DVT and GI prophylaxis Further recommendations pending will follow The above dictated assessment and findings were discussed with dr zhong . Impression and the plan of care have been dictated as directed. Lily Moreno nurse practitioner acting as a scribe for dr zhong
[2016-10-09 08:55] LABS: ALT 82 U/L (21-72); AST 155 U/L (17-59); Alkaline Phosphatase 98 U/L (38-126); Anion Gap 11 mmol/L; Blood Urea Nitrogen 11 mg/dL (9-20); Calcium 8.9 mg/dL (8.4-10.2); Carbon Dioxide 24 mmol/L (22-30); Chloride 103 mmol/L (98-107); Glucose 152 mg/dL (74-99); Non-African American GFR(MDRD) >60 (>60 ml/min/1.73 sqM); Potassium 4.1 mmol/L (3.5-5.1); Sodium 138 mmol/L (137-145); Total Bilirubin 1.1 mg/dL (0.2-1.3); Total Protein 7.9 g/dL (6.3-8.2)
[2016-10-09] MEDS ORDERED: ASPIRIN 325 MG TAB PO SCH (09:00)
[2016-10-09] MEDS ORDERED: amLODIPine 10 MG TAB PO SCH (09:00)
--- NOTE | 2016-10-09 09:03 | P.CRDCN ---
<Petra Aguirre E - Last Filed: 10/09/16 08:45> History of Present Illness Consult date: 10/09/16 Requesting physician: Doug Beck Consult reason: chest pain Chief complaint: Chest pain History of present illness: This is a 61-year-old gentleman with history of hypertension, diabetes , hyperlipidemia, prior CVA, prior PE, nonsmoker, occasional EtOH use, he presents to the hospital with symptoms of chest pressure with associated nausea and vomiting, dizziness and diaphoresis. According to the patient lives in an apartment building and he was walking down the stairs to go and visit a friend. He states that he became mildly dizzy, shaky, became nauseated and started to dry heave, he then noticed significant pressure and heaviness across his chest and states he became very sweaty patient states that right after that he went down onto the ground as he became extremely weak. He denies passing out completely. EKG on arrival here shows a sinus tachycardia with no acute changes. Repeat EKG shows a sinus tachycardia with no acute changes. Chest x- ray did not reveal any evidence of acute pulmonary disease. Blood pressure on arrival here 160/80 with a heart rate of 110, 96% on room air. White blood cell count 5.5, hemoglobin 15.2, d-dimer 0.5. Potassium 3.8, BUN 5, creatinine 0.7. AST 220, ALT 93, troponins were negative 3. Cholesterol 259, LDL 167, HDL 77, triglycerides 76. Mag level 1.4, replaced, 1.9 this morning. Past Medical History Past Medical History: Atrial Fibrillation, Chest Pain / Angina, CVA/TIA, Diabetes Mellitus, GERD/Reflux, Hyperlipidemia, Hypertension, Pulmonary Embolus (PE) Additional Past Medical History / Comment(s): 11/2015 with bacterial septicemia. Other HX: TIA, NIDDM type II, high cholesterol but not on med yet, PE L lung 2011, cervical disc disease with neck pain,scoliosis, epilepsy when a child- last known seizure at age 11 however pt sometimes wonders if he has had some since (he gets body shakes and confused on occasion), occasional popping sound to L ear, diverticulitis, viral gastroenteritis .pt stated has bouts of diarrhea off and on. History of Any Multi-Drug Resistant Organisms: None Reported Past Surgical History: Appendectomy, Cholecystectomy Past Anesthesia/Blood Transfusion Reactions: Previous Problems w/ Anesthesia Additional Past Anesthesia/Blood Transfusion Reaction / Comment(s): after appendix removed sob Past Psychological History: Anxiety, Depression Additional Psychological History / Comment(s): Pt lives in an apartment alone. no pets. Sometimes his sister stays with him. He uses a cane to ambulate at times. He drives. His sister cleans his apt. Used to work in [email or web address]. Relates that he's not been a smoker. Denies recreational drug use. His left him many years ago he has adult children that he does not see very often. No experience. No travel history. No animal exposures Smoking Status: Never smoker Past Alcohol Use History: Occasional Additional Past Alcohol Use History / Comment(s): pt stated he drinks 3-4 tall cans of beer per week. Past Drug Use History: None Reported - Past Family History Mother Family Medical History: COPD, CVA/TIA Additional Family Medical History / Comment(s): from a stroke Father Family Medical History: Pneumonia Additional Family Medical History / Comment(s): Father of pneumonia when he was close to 80 yrs old. Medications and Allergies Home Medications Medication Instructions Recorded Confirmed Type Aspirin 325 mg PO DAILY 10/08/16 10/08/16 History Allergies Allergy/AdvReac Type Severity Reaction Status Date / Time egg Allergy Rash/Hives Verified 10/08/16 12:07 lisinopril Allergy Rash/Hives Verified 10/08/16 12:07 tomato AdvReac Indigestion Verified 10/08/16 12:07 surgical tape AdvReac Rash/Hives Uncoded 10/08/16 11:25 Physical Exam Vitals: Vital Signs Temp Pulse Pulse Resp BP BP Pulse Ox 10/09/16 04:00 98.7 F 83 18 141/80 92 L 10/09/16 00:00 98.1 F 90 17 139/77 94 L 10/08/16 20:00 97.8 F 120 H 18 130/84 94 L 10/08/16 18:02 97.5 F L 127 H 18 130/80 97 10/08/16 16:37 98.6 F 114 H 20 145/80 96 10/08/16 15:13 114 H 20 135/77 95 10/08/16 15:02 114 H 20 144/79 96 10/08/16 14:02 120 H 18 137/81 96 10/08/16 13:38 120 H 22 141/85 95 10/08/16 13:02 118 H 20 141/85 95 10/08/16 12:25 134 H 22 149/86 96 10/08/16 12:02 115 H 18 149/86 95 10/08/16 11:15 97.2 F L 110 H 22 161/83 99 Intake and Output 10/08/16 10/09/16 10/09/16 22:59 06:59 14:59 Intake Total 100 341.419 Balance 100 341.419 Intake: IV 200 Sodium Chloride 0.9% 1, 200 000 ml @ 20 mls/hr IV . Q24H [facility] Rx#:[id number] Intake, IV Titration 100 141.419 Amount Heparin Sodium,Porcine/ 141.419 D5w Pmx 25,000 unit In Dextrose/Water 1 500ml. bag @ 12 UNITS/KG/HR 18. 94 mls/hr IV .Q24H [facility] Rx #:[id number] Magnesium Sulfate-D5w Pmx 100 1 gm In Dextrose/Water 1 100ml.bag @ 100 mls/hr IVPB ONCE ONE Rx#: [id number] Other: Voiding Method Toilet Toilet # Voids 1 1 Weight 82.1 kg 82 kg PHYSICAL EXAMINATION: HEENT: Head is atraumatic, normocephalic. Pupils equal, round. Neck is supple. There is no elevated jugular venous pressure. HEART EXAMINATION: Heart S1, S2 normal. No murmur or gallop heard. CHEST EXAMINATION: Lungs are clear to auscultation and precussion. No chest wall tenderness is noted on palpation or with deep breathing. ABDOMEN: Soft, nontender. Bowel sounds are heard. No organomegaly noted. EXTREMITIES: 2+ peripheral pulses with no evidence of peripheral edema and no calf tenderness noted. NEUROLOGIC patient is awake, alert and oriented -3. Mild hand tremors noted . Results 10/08/16 11:30 10/08/16 11:30 Cardiac Enzymes 10/08/16 10/08/16 10/08/16 Range/Units 11:30 11:30 17:41 AST 220 H (17-59) U/L CK-MB (CK-2) 0.6 0.6 (0.0-2.4) ng/mL Troponin I <0.012 <0.012 (0.000-0.034) ng/mL 10/08/16 Range/Units 23:17 AST (17-59) U/L CK-MB (CK-2) 0.7 (0.0-2.4) ng/mL Troponin I <0.012 (0.000-0.034) ng/mL Coagulation 10/08/16 10/08/16 10/09/16 Range/Units 11:30 23:17 05:31 PT 12.5 H (9.0-12.0) sec APTT 28.4 54.4 H 50.6 H (22.0-30.0) sec Lipids 10/09/16 Range/Units 05:31 Triglycerides 76 (<150) mg/dL Cholesterol 259 H (<200) mg/dL HDL Cholesterol 77 H (40-60) mg/dL CBC 10/08/16 Range/Units 11:30 WBC 5.5 (3.8-10.6) k/uL RBC 4.40 (4.30-5.90) m/uL Hgb 15.2 (13.0-17.5) gm/dL Hct 44.7 (39.0-53.0) % Plt Count 181 (150-450) k/uL Comprehensive Metabolic Panel 10/08/16 Range/Units 11:30 Sodium 143 (137-145) mmol/L Potassium 3.8 (3.5-5.1) mmol/L Chloride 105 (98-107) mmol/L Carbon Dioxide 23 (22-30) mmol/L BUN 5 L (9-20) mg/dL Creatinine 0.77 (0.66-1.25) mg/dL Glucose 140 H (74-99) mg/dL Calcium 9.2 (8.4-10.2) mg/dL AST 220 H (17-59) U/L ALT 93 H (21-72) U/L Alkaline Phosphatase 115 (38-126) U/L Total Protein 8.6 H (6.3-8.2) g/dL Albumin 4.2 (3.5-5.0) g/dL Current Medications Generic Name Dose Route Start Last Admin Trade Name Freq PRN Reason Stop Dose Admin Amlodipine Besylate 10 mg 10/09/16 09:00 Norvasc PO DAILY [facility] Aspirin 325 mg 10/09/16 09:00 Aspirin PO DAILY [facility] Heparin Sodium/Dextrose 25,000 500 mls @ 18.94 mls/hr 10/08/16 16:00 23:49 unit/ IV Solution IV 12 units/kg/hr .Q24H [facility] 18.94 mls/hr Protocol Titration 12 UNITS/KG/HR Sodium Chloride 1,000 mls @ 20 mls/hr 10/08/16 16:00 10/08/16 16:15 Saline 0.9% IV 20 mls/hr .Q24H [facility] Administration Insulin Human Lispro 0 unit 10/08/16 17:30 10/09/16 07:27 Humalog SQ 1 unit ACHS [facility] Administration Protocol Metformin HCl 1,000 mg 10/08/16 21:00 10/08/16 20:28 Glucophage PO 1,000 mg BID [facility] Administration Metoprolol Tartrate 50 mg 10/08/16 21:00 10/08/16 19:43 Lopressor PO 50 mg BID [facility] Administration Nitroglycerin 0.4 mg 10/08/16 15:49 10/08/16 16:22 Nitrostat SUBLINGUAL 0.4 mg Q5M PRN Administration Chest Pain Ondansetron HCl 4 mg 10/08/16 20:34 10/09/16 03:35 Zofran IVP 4 mg Q6HR PRN Administration Nausea And Vomiting Intake and Output 10/08/16 10/09/16 10/09/16 22:59 06:59 14:59 Intake Total 100 341.419 Balance 100 341.419 Intake: IV 200 Sodium Chloride 0.9% 1, 200 000 ml @ 20 mls/hr IV . Q24H [facility] Rx#:[id number] Intake, IV Titration 100 141.419 Amount Heparin Sodium,Porcine/ 141.419 D5w Pmx 25,000 unit In Dextrose/Water 1 500ml. bag @ 12 UNITS/KG/HR 18. 94 mls/hr IV .Q24H [facility] Rx #:[id number] Magnesium Sulfate-D5w Pmx 100 1 gm In Dextrose/Water 1 100ml.bag @ 100 mls/hr IVPB ONCE ONE Rx#: [id number] Other: Voiding Method Toilet Toilet # Voids 1 1 Weight 82.1 kg 82 kg 10/08/16 11:30 10/08/16 11:30 EKG Interpretations (text) EKG shows sinus tachycardia with no acute changes. Assessment and Plan Plan: Assessment and plan #1 symptoms of chest discomfort with associated dizziness, diaphoresis, nausea and vomiting. Atypical for acute coronary syndrome, troponins negative 3, EKG shows sinus tachycardia with no acute changes. D-dimer negative. #2 abnormal liver functions, AST 220, ALT 93 #3 hypertension #4 Diabetes #5 Hyperlipidemia #6 hx of CVA #7 hx of PE *8 hypomagnesemia, replaced. Plan We will obtain an echocardiogram with Doppler study. Discontinue IV heparin. Discontinue Nitropaste. Add an CHRIS inhibitor to his medication regime for more optimal blood pressure control. Further recommendations to follow. DNP note has been reviewed, I agree with a documented findings and plan of care. Patient was seen and examined. <Khai Kulkarni - Last Filed: 10/09/16 09:33> Physical Exam Vitals: Vital Signs Temp Pulse Pulse Resp BP BP Pulse Ox 10/09/16 08:47 97.5 F L 99 18 155/93 95 10/09/16 04:00 98.7 F 83 18 141/80 92 L 10/09/16 00:00 98.1 F 90 17 139/77 94 L 10/08/16 20:00 97.8 F 120 H 18 130/84 94 L 10/08/16 18:02 97.5 F L 127 H 18 130/80 97 10/08/16 16:37 98.6 F 114 H 20 145/80 96 10/08/16 15:13 114 H 20 135/77 95 10/08/16 15:02 114 H 20 144/79 96 10/08/16 14:02 120 H 18 137/81 96 10/08/16 13:38 120 H 22 141/85 10/08/16 13:02 118 H 20 141/85 95 10/08/16 12:25 134 H 22 149/86 96 10/08/16 12:02 115 H 18 149/86 95 10/08/16 11:15 97.2 F L 110 H 22 161/83 99 Intake and Output 10/08/16 10/09/16 10/09/16 22:59 06:59 14:59 Intake Total 100 341.419 Balance 100 341.419 Intake: IV 200 Sodium Chloride 0.9% 1, 200 000 ml @ 20 mls/hr IV . Q24H [facility] Rx#:[id number] Intake, IV Titration 100 141.419 Amount Heparin Sodium,Porcine/ 141.419 D5w Pmx 25,000 unit In Dextrose/Water 1 500ml. bag @ 12 UNITS/KG/HR 18. 94 mls/hr IV .Q24H [facility] Rx #:[id number] Magnesium Sulfate-D5w Pmx 100 1 gm In Dextrose/Water 1 100ml.bag @ 100 mls/hr IVPB ONCE ONE Rx#: [id number] Other: Voiding Method Toilet Toilet Toilet # Voids 1 1 Weight 82.1 kg 82 kg Results 10/08/16 11:30 10/09/16 05:31 Cardiac Enzymes 10/08/16 10/08/16 10/08/16 Range/Units 11:30 11:30 17:41 AST 220 H (17-59) U/L CK-MB (CK-2) 0.6 0.6 (0.0-2.4) ng/mL Troponin I <0.012 <0.012 (0.000-0.034) ng/mL 10/08/16 10/09/16 Range/Units 23:17 05:31 AST 155 H (17-59) U/L CK-MB (CK-2) 0.7 (0.0-2.4) ng/mL Troponin I <0.012 (0.000-0.034) ng/mL Coagulation 10/08/16 10/08/16 10/09/16 Range/Units 11:30 23:17 05:31 PT 12.5 H (9.0-12.0) sec APTT 28.4 54.4 H 50.6 H (22.0-30.0) sec Lipids 10/09/16 Range/Units 05:31 Triglycerides 76 (<150) mg/dL Cholesterol 259 H (<200) mg/dL HDL Cholesterol 77 H (40-60) mg/dL CBC 10/08/16 Range/Units 11:30 WBC 5.5 (3.8-10.6) k/uL RBC 4.40 (4.30-5.90) m/uL Hgb 15.2 (13.0-17.5) gm/dL Hct 44.7 (39.0-53.0) % Plt Count 181 (150-450) k/uL Comprehensive Metabolic Panel 10/08/16 10/09/16 Range/Units 11:30 05:31 Sodium 143 138 (137-145) mmol/L Potassium 3.8 4.1 (3.5-5.1) mmol/L Chloride 105 103 (98-107) mmol/L Carbon Dioxide 23 24 (22-30) mmol/L BUN 5 L 11 (9-20) mg/dL Creatinine 0.77 0.75 (0.66-1.25) mg/dL Glucose 140 H 152 H (74-99) mg/dL Calcium 9.2 8.9 (8.4-10.2) mg/dL AST 220 H 155 H (17-59) U/L ALT 93 H 82 H (21-72) U/L Alkaline Phosphatase 115 98 (38-126) U/L Total Protein 8.6 H 7.9 (6.3-8.2) g/dL Albumin 4.2 3.7 (3.5-5.0) g/dL Current Medications Generic Name Dose Route Start Last Admin Trade Name Freq PRN Reason Stop Dose Admin Amlodipine Besylate 10 mg 10/09/16 09:00 Norvasc PO DAILY [facility] Aspirin 325 mg 10/09/16 09:00 Aspirin PO DAILY [facility] Heparin Sodium/Dextrose 25,000 500 mls @ 18.94 mls/hr 10/08/16 16:00 23:49 unit/ IV Solution IV 12 units/kg/hr .Q24H [facility] 18.94 mls/hr Protocol Titration 12 UNITS/KG/HR Sodium Chloride 1,000 mls @ 20 mls/hr 10/08/16 16:00 10/08/16 16:15 Saline 0.9% IV 20 mls/hr .Q24H [facility] Administration Insulin Human Lispro 0 unit 10/08/16 17:30 10/09/16 07:27 Humalog SQ 1 unit ACHS [facility] Administration Protocol Metformin HCl 1,000 mg 10/08/16 21:00 10/08/16 20:28 Glucophage PO 1,000 mg BID [facility] Administration Metoprolol Tartrate 50 mg 10/08/16 21:00 10/08/16 19:43 Lopressor PO 50 mg BID [facility] Administration Nitroglycerin 0.4 mg 10/08/16 15:49 10/08/16 16:22 Nitrostat SUBLINGUAL 0.4 mg Q5M PRN Administration Chest Pain Ondansetron HCl 4 mg 10/08/16 20:34 10/09/16 03:35 Zofran IVP 4 mg Q6HR PRN Administration Nausea And Vomiting Intake and Output 10/08/16 10/09/16 10/09/16 22:59 06:59 14:59 Intake Total 100 341.419 Balance 100 341.419 Intake: IV 200 Sodium Chloride 0.9% 1, 200 000 ml @ 20 mls/hr IV . Q24H [facility] Rx#:[id number] Intake, IV Titration 100 141.419 Amount Heparin Sodium,Porcine/ 141.419 D5w Pmx 25,000 unit In Dextrose/Water 1 500ml. bag @ 12 UNITS/KG/HR 18. 94 mls/hr IV .Q24H [facility] Rx #:[id number] Magnesium Sulfate-D5w Pmx 100 1 gm In Dextrose/Water 1 100ml.bag @ 100 mls/hr IVPB ONCE ONE Rx#: [id number] Other: Voiding Method Toilet Toilet Toilet # Voids 1 1 Weight 82.1 kg 82 kg 10/08/16 11:30 10/09/16 05:31
--- NOTE | 2016-10-09 09:33 | P.PN ---
Progress Note - Text Patient presenting with dizziness sweatiness weakness anatomic breaks in his chest normal cardiac enzymes normal ECG, sinus tachycardia mildly elevated blood pressure. This factors for CAD Suggest Dobutamine stress echo Reevaluation thereafter Patient interviewed and examined See full consult by Dr. casper
[2016-10-09] MEDS ORDERED: DOBUTamine DRIP for NUC MED 500 MG in DEXTROSE/WATER 1 250ML.BAG IV ONE (10:04)
[2016-10-09 11:59] LABS: Glucose,Whole Blood 120 mg/dL (75-99)
[2016-10-09] MEDS: metFORMIN 500 MG TAB PO SCH (12:05)
[2016-10-09] MEDS: METOPROLOL TARTRATE 50 MG TAB PO SCH (12:06)
--- NOTE | 2016-10-09 12:17 | ECHOS ---
DATE OF SERVICE: 10/09/2016 AGE: 61Y SEX: M HT: 65" WT: 180 lbs. Protocol Arpit: Others: Dobutamine Stress Echo Stage: III Dur. of Exercise: 11:31 *Heart Rate Blood Pressure *Rest: 105 Rest: 149/75 * *Max. Achieved: 136 Maximum BP: 161/47 85% PMHR: 136 100% PMHR: 160 *METS: - INDICATIONS: Unstable angina. MEDICATIONS: Amlodipine, metformin, metoprolol, aspirin. Patient was given dobutamine infusion according to the standard protocol. Peak heart rate of 136 was achieved. Maximum blood pressure of 161/47 mmHg was noted. Resting EKG shows normal sinus rhythm with normal NC interval and QRS duration and normal ST-T waves. During dobutamine infusion, normal increase in the wall thickness and contractility is noted. EKG portion of the stress test is not suggestive of ischemia. Occasional PVCs were noted. FINAL IMPRESSION: 1. This dobutamine echocardiographic study is negative for stress-induced ischemia. 2. EKG portion of the stress test is not suggestive of ischemia. 3. Occasional premature ventricular contractions were noted.
[2016-10-09 12:25] VITALS: BP 144/85; PULSE 110; TEMP 97.4
--- NOTE | 2016-10-09 13:25 | P.DS ---
Providers Date of admission: 10/08/16 15:56 Expected date of discharge: 10/09/16 Attending physician: Doug Zhong Consults: 10/08/16 16:33 Consult Physician Urgent Consulting Provider: Khai Kulkarni Consult Reason/Comments: angina,sob, tachy Do you want consulting provider notified?: Yes, Notify in am Primary care physician: Dogu Zhong [place] [facility] Course: -year-old male who activated the EMS system after patient stated that he was at home had an episode where he felt dizzy lightheaded became nauseated had the dry heaves. He stated that he was walking down some stairs he became weak like he was going to pass out. He stated he did not completely pass out. Patient stated he activated EMS system brought patient to the emergency room. The EKG on arrival showed sinus tachycardia there was no acute changes. Heart rate was in the 110s. Patient stated that he is diabetic and has been compliant with taking his medication as directed. Patient is a poor historian. Patient states that his blood sugar in the morning was 98 he has been eating. Labs were reviewed the only abnormal lab on arrival was a magnesium level of 1.4 which was replaced and the repeat labs the following morning 1.9. Troponin 3 sets were negative. The AST was 220 and the ALT 93. A cardiology consultation was requested. The dobutamine stress echo was negative for stress-induced ischemia. EKG portion of the stress test did not suggest ischemia. Cardiology indicated there was no further cardiac workup at this time On the day of discharge no further episodes of dizziness lightheadedness no chest pain no shortness of breath. The monitor maintaining sinus rhythm heart rate in the 90s to 100s. Patient was felt to be stable and appropriate to proceed for discharge the patient was seen by the social work faculty member prior to discharge and provided information on the bus transportation system stress to the patient the importance of following up with medical appointments and taking medication as directed. Patient states that he does have a sister who sometimes will say she will give him a ride then does not show up. Patient was given information on the bus public transportation system which the patient states he is aware of Patient was discharged to home Impression Present on admission shortness of breath tachycardic Hypertension essential Type 2 diabetes non-insulin insulin controlled hemoglobin A1c 5.6 History of an ALLERGIC reaction to CHRIS inhibitor Hyperlipidemia not on a statin secondary to elevated AST and ALT Anxiety depressive disorder nonspecified Present on admission hypo-magnesium magnesium 1.4 corrected to 1.9 Mildly Elevated AST and ALT chronic with a recent hepatitis panel negative on no statin therapy Issues of noncompliant with medication and follow-up with the lack of social support The above dictated assessment and findings were discussed with dr zhong . Impression and the plan of care have been dictated as directed. Lily Moreno nurse practitioner acting as a scribe for dr zhong Patient Condition at Discharge: Stable Plan - Discharge Summary Discharge Medication List Metoprolol Tartrate [Lopressor] 50 mg PO BID #60 tab 09/02/16 [Rx] amLODIPine BESYLATE [Norvasc] 10 mg PO DAILY #30 tablet 09/02/16 [Rx] metFORMIN HCL 1,000 mg PO BID #60 tablet 09/02/16 [Rx] Aspirin 325 mg PO DAILY 10/08/16 [History] Follow up Appointment(s)/Referral(s): Doug Zhong MD [Primary Care Provider] - 1-2 days Discharge Disposition: HOME SELF-CARE
--- NOTE | 2016-10-09 13:25 | PN ---
CHIEF COMPLAINT: Chest pain. HISTORY OF PRESENT ILLNESS: This gentleman is doing fairly well and enzymes have been normal. He is not having any further difficulty. PHYSICAL EXAM: Chest is clear. Cardiac exam is normal. ABDOMEN: Soft, nontender. Extremities are normal. IMPRESSION: 1. Chest pain, atypical. 2. Personality disorder. 3. Anxiety neurosis. PLAN: Probably home today and this will be arranged by the nurse practitioner.
[2016-10-09] MEDS: SODIUM CHLORIDE 0.9% 1,000 ML IV SCH (15:43)
--- NOTE | 2016-10-13 14:37 | ECHOF ---
Referral Reason:lv fxn MEASUREMENTS -------- HEIGHT: 165.1 cm WEIGHT: 81.6 kg BP: 141/80 IVSd: 1.3 cm (0.6 - 1.1) LVIDd: 4.1 cm (3.9 - 5.3) LVPWd: 1.4 cm (0.6 - 1.1) IVSs: 1.9 cm LVIDs: 2.8 cm LVPWs: 2.2 cm Ao Diam: 3.6 cm (2.0 - 3.7) AV Cusp: 2.2 cm (1.5 - 2.6) LA Diam: 2.8 cm (2.7 - 3.8) MV EXCURSION: 21.518 mm (> 18.000) MV EF SLOPE: 70 mm/s (70 - 150) EPSS: 0.8 cm MV E Riki: 0.70 m/s MV DecT: 179 ms MV A Riki: 0.89 m/s MV E/A Ratio: 0.79 RAP: 5.00 mmHg RVSP: 14.20 mmHg FINDINGS -------- Sinus rhythm. This was a technically good study. There is mild concentric left ventricular hypertrophy. Overall left ventricular systolic function is normal with, an EF between 55 - 60 %. The right ventricle is normal in size and function. The left atrium is normal in size. The right atrium is normal in size. The aortic valve is trileaflet, and appears structurally normal. No aortic stenosis or regurgitation. The mitral valve leaflets are mildly thickened. There is trace mitral regurgitation. Trace tricuspid regurgitation present. The right ventricular systolic pressure, as measured by Doppler, is 14.20mmHg. Pulmonic valve appears structurally normal. The aortic root, ascending aorta and aortic arch are normal. Echo free space may represent effusion or a pericardial fat pad. CONCLUSIONS -------- 1. Sinus rhythm. 2. There is trace mitral regurgitation. 3. Trace tricuspid regurgitation present. 4. The right ventricular systolic pressure, as measured by Doppler, is 14.20mmHg. 5. Pulmonic valve appears structurally normal. 6. The aortic root, ascending aorta and aortic arch are normal. 7. Echo free space may represent effusion or a pericardial fat pad. 8. This was a technically good study. 9. There is mild concentric left ventricular hypertrophy. 10. Overall left ventricular systolic function is normal with, an EF between 55 - 60 %. 11. The right ventricle is normal in size and function. 12. The left atrium is normal in size. 13. The right atrium is normal in size. 14. The aortic valve is trileaflet, and appears structurally normal. No aortic stenosis or regurgitation. 15. The mitral valve leaflets are mildly thickened. BUSINESS OFFICE DIRECTOR: Lizet Abbott RDCS
== END 2016-10-09 16:02 | disposition home or self-care (01) | DRG 310 ==
LOC: EC 11:14 → 6SEL 15:56
PROVIDERS: ADMIT Family Medicine; ATTEND Family Medicine
DX: R00.0 Tachycardia, unspecified (principal); E83.42 Hypomagnesemia; I10 Essential (primary) hypertension; I48.91 Unspecified atrial fibrillation; G40.909 Epilepsy, unspecified, not intractable, without status epilepticus; R06.02 Shortness of breath; E11.9 Type 2 diabetes mellitus without complications; E78.5 Hyperlipidemia, unspecified; F41.8 Other specified anxiety disorders; F60.9 Personality disorder, unspecified; K21.9 Gastro-esophageal reflux disease without esophagitis; E78.00 Pure hypercholesterolemia, unspecified; M41.9 Scoliosis, unspecified; Z88.8 Allergy status to other drugs, medicaments and biological substances; Z91.048 Other nonmedicinal substance allergy status; Z91.018 Allergy to other foods; Z91.012 Allergy to eggs; Z90.49 Acquired absence of other specified parts of digestive tract; Z91.14 Patient's other noncompliance with medication regimen; Z86.73 Personal history of transient ischemic attack (TIA), and cerebral infarction without residual deficits; Z86.711 Personal history of pulmonary embolism; Z79.82 Long term (current) use of aspirin; Z79.84 Long term (current) use of oral hypoglycemic drugs; Z79.899 Other long term (current) drug therapy
CPT/HCPCS: 36415; 71020; 80053; 80061; 82550; 82553; 83036; 83735; 83880; 84484; 85025; 85379; 85610; 85730; 93005; 93017; 93306; 93350; 96365; 96375; 96376; 99291

== ENCOUNTER 2016-11-29 18:05 | Emergency (ER) | payer OTHER ==
[2016-11-29] MEDS ORDERED: ASPIRIN 81 MG CHEW PO STA (18:32)
--- NOTE | 2016-11-29 18:44 | ED ---
General Adult HPI - General Chief complaint: Shortness of Breath Stated complaint: not feeling well Time Seen by Provider: 11/29/16 18:19 Source: patient, EMS Mode of arrival: EMS Limitations: no limitations - History of Present Illness Initial comments: Patient is a 61 yo male with extensive PMH and frequent hospitalizations who presents to the emergency department for evaluation of cough and subjective fever since yesterday. Patient reports that last night he began having a dry nonproductive cough, he reports that the cough persisted throughout the night and then throughout the day today and did not resolve until he received a breathing treatment while in route to the hospital. Patient states throughout the day he has also felt subjectively febrile, he states he asked his brother feel him and his brother felt his forehead and told them he thinks he has a fever as well. The patient has not taken any medications for this fever. Patient reports occasional spasm-like pain in his right abdomen to chest in the midaxillary line. Reports that this pain is related to coughing. Denies any left-sided chest pain, exertional chest pain, exertional dyspnea, or chest pain that is relieved with rest. Patient reports he did feel transiently nauseated when EMS arrived, however they gave him Zofran during transport and his nausea has since resolved. Denies any vomiting, abdominal pain, constipation or diarrhea, change in bowel or bladder habits. - Related Data Home Medications Medication Instructions Recorded Confirmed Aspirin 325 mg PO DAILY 10/08/16 11/29/16 Previous Rx's Medication Instructions Recorded Metoprolol Tartrate [Lopressor] 50 mg PO BID #60 tab 09/02/16 amLODIPine BESYLATE [Norvasc] 10 mg PO DAILY #30 tablet 09/02/16 metFORMIN HCL 1,000 mg PO BID #60 tablet 09/02/16 Allergies Allergy/AdvReac Type Severity Reaction Status Date / Time egg Allergy Nausea & Verified 11/29/16 19:13 Vomiting lisinopril Allergy EYES Verified 11/29/16 19:13 BURN&ITCH/WEAKNESS tomato AdvReac Nausea & Verified 11/29/16 19:13 Vomiting & Diarrhea surgical tape AdvReac Rash/Hives Uncoded 10/08/16 11:25 Review of Systems ROS Statement: Those systems with pertinent positive or pertinent negative responses have been documented in the HPI. ROS Other: All systems not noted in ROS Statement are negative. Constitutional: Reports: fever, chills Eyes: Denies: vision change ENT: Denies: throat pain Respiratory: Reports: cough. Denies: dyspnea, wheezes, hemoptysis, stridor Cardiovascular: Reports: chest pain. Denies: palpitations, dyspnea on exertion , orthopnea, syncope Endocrine: Denies: fatigue Gastrointestinal: Reports: nausea. Denies: abdominal pain, vomiting, diarrhea, constipation Genitourinary: Denies: urgency Musculoskeletal: Denies: back pain Skin: Denies: rash, lesions Neurological: Denies: headache, weakness Psychiatric: Denies: anxiety Hematological/Lymphatic: Denies: easy bleeding, easy bruising Past Medical History Past Medical History: Atrial Fibrillation, Chest Pain / Angina, CVA/TIA, Diabetes Mellitus, GERD/Reflux, Hyperlipidemia, Hypertension, Pulmonary Embolus (PE) Additional Past Medical History / Comment(s): 11/2015 with bacterial septicemia. Other HX: TIA, NIDDM type II, high cholesterol but not on med yet, PE L lung 2011, cervical disc disease with neck pain,scoliosis, epilepsy when a child- last known seizure at age 11 however pt sometimes wonders if he has had some since (he gets body shakes and confused on occasion), occasional popping sound to L ear, diverticulitis, viral gastroenteritis .pt stated has bouts of diarrhea off and on. History of Any Multi-Drug Resistant Organisms: None Reported Past Surgical History: Appendectomy, Cholecystectomy Past Anesthesia/Blood Transfusion Reactions: Previous Problems w/ Anesthesia Additional Past Anesthesia/Blood Transfusion Reaction / Comment(s): after appendix removed sob Past Psychological History: Anxiety, Depression Smoking Status: Never smoker Past Alcohol Use History: Occasional Past Drug Use History: None Reported - Past Family History Mother Family Medical History: COPD, CVA/TIA Additional Family Medical History / Comment(s): from a stroke Father Family Medical History: Pneumonia Additional Family Medical History / Comment(s): Father of pneumonia when he was close to 80 yrs old. General Exam Limitations: no limitations General appearance: alert, in no apparent distress Head exam: Present: atraumatic, normocephalic, normal inspection Eye exam: Present: normal appearance, PERRL, EOMI. Absent: scleral icterus, conjunctival injection, periorbital swelling ENT exam: Present: normal exam, mucous membranes moist Neck exam: Present: normal inspection. Absent: tenderness, meningismus, lymphadenopathy Respiratory exam: Present: normal lung sounds bilaterally. Absent: respiratory distress, wheezes, rales, rhonchi, stridor Cardiovascular Exam: Present: regular rate, normal rhythm, normal heart sounds. Absent: systolic murmur, diastolic murmur, rubs, gallop, clicks GI/Abdominal exam: Present: soft, normal bowel sounds. Absent: distended, tenderness, guarding, rebound, rigid Rectal exam: Present: deferred Extremities exam: Present: normal inspection, full ROM, normal capillary refill , pedal edema (1+ pitting edema bilateral ankles). Absent: tenderness, joint swelling, calf tenderness Back exam: Present: normal inspection Neurological exam: Present: alert Psychiatric exam: Present: normal affect, normal mood Skin exam: Present: warm, dry, intact, normal color. Absent: rash Course Vital Signs 11/29/16 11/29/16 11/29/16 18:29 19:01 22:00 Temperature 98.3 F 98.3 F Pulse Rate 97 86 101 H Respiratory 18 18 20 Rate Blood Pressure 147/84 143/88 131/73 O2 Sat by Pulse 95 97 95 Oximetry 11/29/16 11/29/16 11/30/16 23:45 23:50 00:00 Temperature Pulse Rate 107 H 109 H 79 Respiratory 18 Rate Blood Pressure 148/78 O2 Sat by Pulse 99 Oximetry 11/30/16 00:46 Temperature 98.8 F Pulse Rate 101 H Respiratory 18 Rate Blood Pressure 152/71 O2 Sat by Pulse 95 Oximetry - Reevaluation(s) Reevaluation #1: Patient re-evaluated, ambulating independently to restroom in no acute distress. Has no complaints. 11/29/16 22:12 Reevaluation #2: Patient re-evaluated, labs, CXR and US findings were discussed with the patient. patient reports he is feeling well and thinks he can go home. Patient requesting breathing treatment prior to discharge as he feels it makes him feel better. 11/29/16 23:32 Medical Decision Making - Medical Decision Making Patient seen and evaluated, history obtained from patient and review of previous medical record Patient with nonproductive cough which improved after single breathing treatment in route to the hospital Patient reports subjective fever but was noted to be afebrile and has not taken any antipyretics As ago exam with no acute findings, patient with mild tenderness to palpation of the right chest Labs and no acute abnormalities - troponin and BNP not elevated Transaminases mildly elevated, and comparison to previous values these or not significantly elevated Right upper quadrant abdominal ultrasound was ordered and reviewed with no acute findings, chronic changes of the liver noted, status post cholecystectomy Results were discussed with the patient states he is feeling much better, he does feel he is healthy enough to go home at this time and does feel stable going home. He requests a repeat breathing treatment prior to discharge he noted he doesn't feel short of breath or wheezing. He states that he feels the breathing treatment helped him so he should have 1 more before he leaves. DuoNeb was ordered the patient reported that that made him feel really good and he feels stable for discharge home. Patient has made telephone calls and attempt to obtain a ride home. All questions pertaining to care were answered to the best of my ability. Patient was in stable condition and discharged home with diagnosis of right sided muscular skeletal chest pain. - Lab Data Result diagrams: 11/29/16 18:37 11/29/16 18:37 Lab Results 11/29/16 11/29/16 11/29/16 Range/Units 18:37 18:37 18:37 WBC 6.1 (3.8-10.6) k/uL RBC 4.10 L (4.30-5.90) m/uL Hgb 14.0 (13.0-17.5) gm/dL Hct 41.6 (39.0-53.0) % MCV 101.5 H (80.0-100.0) fL MCH 34.2 (25.0-35.0) pg MCHC 33.7 (31.0-37.0) g/dL RDW 14.3 (11.5-15.5) % Plt Count 186 (150-450) k/uL Neutrophils % 64 % Lymphocytes % 23 % Monocytes % 9 % Eosinophils % 1 % Basophils % 1 % Neutrophils # 3.9 (1.3-7.7) k/uL Lymphocytes # 1.4 (1.0-4.8) k/uL Monocytes # 0.6 (0-1.0) k/uL Eosinophils # 0.1 (0-0.7) k/uL Basophils # 0.0 (0-0.2) k/uL Macrocytosis Slight PT (9.0-12.0) sec INR (<1.2) APTT (22.0-30.0) sec Sodium 138 (137-145) mmol/L Potassium 4.4 (3.5-5.1) mmol/L Chloride 102 (98-107) mmol/L Carbon Dioxide 24 (22-30) mmol/L Anion Gap 12 mmol/L BUN 12 (9-20) mg/dL Creatinine 0.70 (0.66-1.25) mg/dL Est GFR (MDRD) Af Amer >60 (>60 ml/min/1.73 sqM) Est GFR (MDRD) Non-Af >60 (>60 ml/min/1.73 sqM) Glucose 139 H (74-99) mg/dL Calcium 9.6 (8.4-10.2) mg/dL Magnesium 1.6 (1.6-2.3) mg/dL Total Bilirubin 0.6 (0.2-1.3) mg/dL AST 174 H (17-59) U/L ALT 104 H (21-72) U/L Alkaline Phosphatase 107 (38-126) U/L Troponin I (0.000-0.034) ng/mL NT-Pro-B Natriuret Pep 105 pg/mL Total Protein 7.4 (6.3-8.2) g/dL Albumin 3.8 (3.5-5.0) g/dL Urine Color Urine Appearance (Clear) Urine pH (5.0-8.0) Ur Specific [place] (1.001-1.035) Urine Protein (Negative) Urine Glucose (UA) (Negative) Urine Ketones (Negative) Urine Blood (Negative) Urine Nitrite (Negative) Urine Bilirubin (Negative) Urine Urobilinogen (<2.0) mg/dL Ur Leukocyte Esterase (Negative) 11/29/16 11/29/16 11/29/16 Range/Units 18:37 18:37 19:50 WBC (3.8-10.6) k/uL RBC (4.30-5.90) m/uL Hgb (13.0-17.5) gm/dL Hct (39.0-53.0) % MCV (80.0-100.0) fL MCH (25.0-35.0) pg MCHC (31.0-37.0) g/dL RDW (11.5-15.5) % Plt Count (150-450) k/uL Neutrophils % % Lymphocytes % % Monocytes % % Eosinophils % % Basophils % % Neutrophils # (1.3-7.7) k/uL Lymphocytes # (1.0-4.8) k/uL Monocytes # (0-1.0) k/uL Eosinophils # (0-0.7) k/uL Basophils # (0-0.2) k/uL Macrocytosis PT 12.7 H (9.0-12.0) sec INR 1.3 H (<1.2) APTT 26.3 (22.0-30.0) sec Sodium (137-145) mmol/L Potassium (3.5-5.1) mmol/L Chloride (98-107) mmol/L Carbon Dioxide (22-30) mmol/L Anion Gap mmol/L BUN (9-20) mg/dL Creatinine (0.66-1.25) mg/dL Est GFR (MDRD) Af Amer (>60 ml/min/1.73 sqM) Est GFR (MDRD) Non-Af (>60 ml/min/1.73 sqM) Glucose (74-99) mg/dL Calcium (8.4-10.2) mg/dL Magnesium (1.6-2.3) mg/dL Total Bilirubin (0.2-1.3) mg/dL AST (17-59) U/L ALT (21-72) U/L Alkaline Phosphatase (38-126) U/L Troponin I <0.012 (0.000-0.034) ng/mL NT-Pro-B Natriuret Pep pg/mL Total Protein (6.3-8.2) g/dL Albumin (3.5-5.0) g/dL Urine Color Yellow Urine Appearance Clear (Clear) Urine pH 6.0 (5.0-8.0) Ur Specific [place] 1.010 (1.001-1.035) Urine Protein Negative (Negative) Urine Glucose (UA) Negative (Negative) Urine Ketones 1+ H (Negative) Urine Blood Negative (Negative) Urine Nitrite Negative (Negative) Urine Bilirubin Negative (Negative) Urine Urobilinogen <2.0 (<2.0) mg/dL Ur Leukocyte Esterase Negative (Negative) Disposition Clinical Impression: Musculoskeletal chest pain, Chronic liver disease Disposition: HOME SELF-CARE Condition: Good Instructions: Chronic Bronchitis (ED) Referrals: Doug Beck MD [Primary Care Provider] - 1-2 days
[2016-11-29 18:48] LABS: Basophils % (A) 1 %; CH 34.4; Eosinophils # (A) 0.1 k/uL (0-0.7); Eosinophils % (A) 1 %; HCT 41.6 % (39.0-53.0); HDW 2.29; Luc # (Auto) 0.12; Luc % (Auto) 2; Lymphocytes # (A) 1.4 k/uL (1.0-4.8); Lymphocytes % (A) 23 %; MCH 34.2 pg (25.0-35.0); MCHC 33.7 g/dL (31.0-37.0); MCV 101.5 fL (80.0-100.0); Macrocytosis Slight; Monocytes # (A) 0.6 k/uL (0-1.0); Monocytes % (A) 9 %; Neutrophils # (A) 3.9 k/uL (1.3-7.7); Neutrophils % (A) 64 %; RDW 14.3 % (11.5-15.5); WBC 6.1 k/uL (3.8-10.6); WBC (Perox) 5.48
--- NOTE | 2016-11-29 18:53 | XR ---
EXAMINATION TYPE: XR chest 2V DATE OF EXAM: 11/29/2016 COMPARISON: 10/08/2016 HISTORY: Cough TECHNIQUE: Frontal and lateral views of the chest are obtained. FINDINGS: There is coarsening of interstitial markings. There is no heart failure. Heart size is nor mal. There is no pleural effusion. Bony thorax is intact. IMPRESSION: Mild pulmonary fibrotic changes. No acute lung disease. No change.
[2016-11-29 18:57] LABS: INR 1.3 (<1.2); Partial Thromboplastin Time 26.3 sec (22.0-30.0); Prothrombin Time 12.7 sec (9.0-12.0)
[2016-11-29 18:59] LABS: ALT 104 U/L (21-72); AST 174 U/L (17-59); Alkaline Phosphatase 107 U/L (38-126); Anion Gap 12 mmol/L; Blood Urea Nitrogen 12 mg/dL (9-20); Calcium 9.6 mg/dL (8.4-10.2); Carbon Dioxide 24 mmol/L (22-30); Chloride 102 mmol/L (98-107); Glucose 139 mg/dL (74-99); Magnesium 1.6 mg/dL (1.6-2.3); Non-African American GFR(MDRD) >60 (>60 ml/min/1.73 sqM); Potassium 4.4 mmol/L (3.5-5.1); Sodium 138 mmol/L (137-145); Total Bilirubin 0.6 mg/dL (0.2-1.3); Total Protein 7.4 g/dL (6.3-8.2)
[2016-11-29 19:58] LABS: Appearance,Urine Clear (Clear); Bilirubin,Urine Negative (Negative); Glucose,Urine (UA) Negative (Negative); Ketones,Urine 1+ (Negative); Leukocyte Esterase,Urine Negative (Negative); Nitrite,Urine Negative (Negative); Protein,Urine Negative (Negative); UA Billing (MACRO vs. MICRO) CHEM; Urobilinogen,Urine <2.0 mg/dL (<2.0)
--- NOTE | 2016-11-29 22:05 | US ---
EXAMINATION TYPE: US abdomen limited DATE OF EXAM: 11/29/2016 COMPARISON: NONE CLINICAL HISTORY: Pain, elevated transaminases. cholecystectomy, appendectomy EXAM MEASUREMENTS: Liver Length: 17.8 cm Gallbladder Wall: cholecystectomy CBD: 0.7 cm Right Kidney: 11.6 x 4.7 x 5.3 cm Limited due to bowel gas. Pancreas: Obscured by bowel gas Liver: Increased attenuation, decreased visualization of vessels suggestive of fatty infiltrate Gallbladder: Surgically absent Evidence for sonographic Shaw's sign: No CBD: wnl for cholecystectomy Right Kidney: wnl IMPRESSION: Cholecystectomy. No dilated ducts.
[2016-11-29] MEDS ORDERED: IPRATROPIUM-ALBUTEROL 3 ML NEB INHALATION STA (23:31)
[2016-11-30 00:07] VITALS: RESP 18
[2016-11-30 00:47] VITALS: BP 152/71; PULSE 101; TEMP 98.8
== END 2016-11-30 00:47 | disposition home or self-care (01) ==
LOC: EC 18:05
DX: R07.89 Other chest pain (principal); K76.9 Liver disease, unspecified; R11.0 Nausea; R05 Cough; I48.91 Unspecified atrial fibrillation; I10 Essential (primary) hypertension; Z86.711 Personal history of pulmonary embolism; Z86.73 Personal history of transient ischemic attack (TIA), and cerebral infarction without residual deficits; Z91.012 Allergy to eggs; Z91.018 Allergy to other foods; Z91.048 Other nonmedicinal substance allergy status; Z79.82 Long term (current) use of aspirin; Z79.899 Other long term (current) drug therapy
CPT/HCPCS: 36415; 71020; 76705; 80053; 81003; 83735; 83880; 84484; 85025; 85610; 85730; 94640; 99285

== ENCOUNTER 2017-03-19 11:44 | Inpatient (IN) | payer OTHER ==
--- NOTE | 2017-03-19 12:14 | ED ---
General Adult HPI - General Chief complaint: Shortness of Breath Stated complaint: Difficulty Breathing Time Seen by Provider: 03/19/17 11:45 Source: patient, EMS, RN notes reviewed Mode of arrival: EMS Limitations: no limitations - History of Present Illness Initial comments: this is a 61-year-old male who presents emergency Department complaining of difficulty breathing. Patient states he has history of COPD. Patient states been ongoing for a couple days and gotten worse. Patient states he has also felt like he is coughing up some sputum but has been unable to get it out completely. Patient denies any fever chills per patient denies chest pain palpitations. Patient denies any abdominal pain patient denies nausea vomiting diarrhea. Patient denies headache patient denies numbness weakness. Patient denies lightheadedness dizziness or near syncopal episode. Patient denies any pedal edema. Patient denies any history of congestive heart failure. Patient denies a history of pulmonary fibrosis. - Related Data Previous Rx's Medication Instructions Recorded Metoprolol Tartrate [Lopressor] 50 mg PO BID #60 tab 09/02/16 amLODIPine BESYLATE [Norvasc] 10 mg PO DAILY #30 tablet 09/02/16 metFORMIN HCL 1,000 mg PO BID #60 tablet 09/02/16 Allergies Allergy/AdvReac Type Severity Reaction Status Date / Time adhesive tape Allergy Rash/Hives Verified 03/19/17 11:58 egg AdvReac Nausea & Verified 03/19/17 11:58 Vomiting lisinopril AdvReac EYES Verified 03/19/17 11:58 BURN&ITCH/WEAKNESS tomato AdvReac Nausea & Verified 03/19/17 11:58 Vomiting & Diarrhea Review of Systems ROS Statement: Those systems with pertinent positive or pertinent negative responses have been documented in the HPI. ROS Other: All systems not noted in ROS Statement are negative. Past Medical History Past Medical History: Atrial Fibrillation, Chest Pain / Angina, CVA/TIA, Diabetes Mellitus, GERD/Reflux, Hyperlipidemia, Hypertension, Pulmonary Embolus (PE) Additional Past Medical History / Comment(s): 11/2015 with bacterial septicemia. Other HX: TIA, NIDDM type II, high cholesterol but not on med yet, PE L lung 2011, cervical disc disease with neck pain,scoliosis, epilepsy when a child- last known seizure at age 11 however pt sometimes wonders if he has had some since (he gets body shakes and confused on occasion), occasional popping sound to L ear, diverticulitis, viral gastroenteritis .pt stated has bouts of diarrhea off and on. History of Any Multi-Drug Resistant Organisms: None Reported Past Surgical History: Appendectomy, Cholecystectomy Past Anesthesia/Blood Transfusion Reactions: Previous Problems w/ Anesthesia Additional Past Anesthesia/Blood Transfusion Reaction / Comment(s): after appendix removed sob Past Psychological History: Anxiety, Depression Smoking Status: Never smoker Past Alcohol Use History: Occasional Past Drug Use History: None Reported - Past Family History Mother Family Medical History: COPD, CVA/TIA Additional Family Medical History / Comment(s): from a stroke Father Family Medical History: Pneumonia Additional Family Medical History / Comment(s): Father of pneumonia when he was close to 80 yrs old. General Exam - General Exam Comments Initial Comments: GENERAL: Patient is well-developed and well-nourished. Patient is nontoxic and well- hydrated and is in mild distress. ENT: Neck is soft and supple. No significant lymphadenopathy is noted. Oropharynx is clear. Moist mucous membranes. Neck has full range of motion without eliciting any pain. EYES: The sclera were anicteric and conjunctiva were pink and moist. Extraocular movements were intact and pupils were equal round and reactive to light. Eyelids were unremarkable. PULMONARY: patient has crackles bilaterally CARDIOVASCULAR: There is a regular rate and rhythm without any murmurs gallops or rubs. ABDOMEN: Soft and nontender with normal bowel sounds. No palpable organomegaly was noted. There is no palpable pulsatile mass. SKIN: Skin is clear with no lesions or rashes and otherwise unremarkable. NEUROLOGIC: Patient is alert and oriented x3. Cranial nerves II through XII are grossly intact. Motor and sensory are also intact. Normal speech, volume and content. Symmetrical smile. MUSCULOSKELETAL: Normal extremities with adequate strength and full range of motion. No lower extremity swelling or edema. No calf tenderness. LYMPHATICS: No significant lymphadenopathy is noted PSYCHIATRIC: Normal psychiatric evaluation. Normal interpersonal interactions appears functionally intact in deals appropriately with others. No signs of depression. No signs of anxiety. Limitations: no limitations Course Vital Signs 03/19/17 03/19/17 03/19/17 11:47 12:49 13:00 Temperature 98 F Pulse Rate 125 H 121 H 125 H Respiratory 24 24 18 Rate Blood Pressure 130/67 132/72 132/72 O2 Sat by Pulse 99 95 96 Oximetry Medical Decision Making - Medical Decision Making EKG shows sinus tachycardia at 120 bpm. It was 142 QRS is 70 QT interval 36 QTC is 446 per patient's EKG shows no ST segment elevation. There is slight ST segment depression in leads V4 V5 and V6. On the patient's hemoglobin came backabnormal I ordered 1 unit of packed red blood cells. I went back and reevaluate the patient and asked the patient had a black or bloody stools patient states he has had some recent black stools. I did a rectal exam which was negative. I spoke with Dr. Bajwa and admitted the patient I wrote admitting orders - Lab Data Result diagrams: 03/19/17 12:06 03/19/17 12:06 Lab Results 03/19/17 03/19/17 03/19/17 Range/Units 12:06 12:06 12:06 WBC 8.1 (3.8-10.6) k/uL RBC 2.94 L (4.30-5.90) m/uL Hgb 6.3 L* (13.0-17.5) gm/dL Hct 22.6 L (39.0-53.0) % MCV 77.0 L (80.0-100.0) fL MCH 21.3 L (25.0-35.0) pg MCHC 27.7 L (31.0-37.0) g/dL RDW 18.2 H (11.5-15.5) % Plt Count 150 (150-450) k/uL Neutrophils % 48 % Lymphocytes % 41 % Monocytes % 7 % Eosinophils % 1 % Basophils % 1 % Neutrophils # 3.9 (1.3-7.7) k/uL Lymphocytes # 3.3 (1.0-4.8) k/uL Monocytes # 0.6 (0-1.0) k/uL Eosinophils # 0.1 (0-0.7) k/uL Basophils # 0.0 (0-0.2) k/uL Hypochromasia Marked Poikilocytosis Moderate Anisocytosis Slight Microcytosis Slight PT (9.0-12.0) sec INR (<1.2) APTT (22.0-30.0) sec Sodium 144 (137-145) mmol/L Potassium 3.8 (3.5-5.1) mmol/L Chloride 110 H (98-107) mmol/L Carbon Dioxide 17 L (22-30) mmol/L Anion Gap 17 mmol/L BUN 8 L (9-20) mg/dL Creatinine 0.81 (0.66-1.25) mg/dL Est GFR (MDRD) Af Amer >60 (>60 ml/min/1.73 sqM) Est GFR (MDRD) Non-Af >60 (>60 ml/min/1.73 sqM) Glucose 138 H (74-99) mg/dL Calcium 8.2 L (8.4-10.2) mg/dL Magnesium 1.7 (1.6-2.3) mg/dL Total Bilirubin 0.5 (0.2-1.3) mg/dL AST 89 H (17-59) U/L ALT 57 (21-72) U/L Alkaline Phosphatase 95 (38-126) U/L Total Creatine Kinase 73 (55-170) U/L CK-MB (CK-2) 0.5 (0.0-2.4) ng/mL CK-MB (CK-2) Rel Index 0.7 Troponin I <0.012 (0.000-0.034) ng/mL NT-Pro-B Natriuret Pep pg/mL Total Protein 7.5 (6.3-8.2) g/dL Albumin 3.4 L (3.5-5.0) g/dL Stool Occult Blood (Negative) 03/19/17 03/19/17 03/19/17 Range/Units 12:06 12:06 13:00 WBC (3.8-10.6) k/uL RBC (4.30-5.90) m/uL Hgb (13.0-17.5) gm/dL Hct (39.0-53.0) % MCV (80.0-100.0) fL MCH (25.0-35.0) pg MCHC (31.0-37.0) g/dL RDW (11.5-15.5) % Plt Count (150-450) k/uL Neutrophils % % Lymphocytes % % Monocytes % % Eosinophils % % Basophils % % Neutrophils # (1.3-7.7) k/uL Lymphocytes # (1.0-4.8) k/uL Monocytes # (0-1.0) k/uL Eosinophils # (0-0.7) k/uL Basophils # (0-0.2) k/uL Hypochromasia Poikilocytosis Anisocytosis Microcytosis PT 12.3 H (9.0-12.0) sec INR 1.2 H (<1.2) APTT 24.2 (22.0-30.0) sec Sodium (137-145) mmol/L Potassium (3.5-5.1) mmol/L Chloride (98-107) mmol/L Carbon Dioxide (22-30) mmol/L Anion Gap mmol/L BUN (9-20) mg/dL Creatinine (0.66-1.25) mg/dL Est GFR (MDRD) Af Amer (>60 ml/min/1.73 sqM) Est GFR (MDRD) Non-Af (>60 ml/min/1.73 sqM) Glucose (74-99) mg/dL Calcium (8.4-10.2) mg/dL Magnesium (1.6-2.3) mg/dL Total Bilirubin (0.2-1.3) mg/dL AST (17-59) U/L ALT (21-72) U/L Alkaline Phosphatase (38-126) U/L Total Creatine Kinase (55-170) U/L CK-MB (CK-2) (0.0-2.4) ng/mL CK-MB (CK-2) Rel Index Troponin I (0.000-0.034) ng/mL NT-Pro-B Natriuret Pep 545 pg/mL Total Protein (6.3-8.2) g/dL Albumin (3.5-5.0) g/dL Stool Occult Blood Negative (Negative) Critical Care Time Critical Care Time: Yes Total Critical Care Time: 35 Disposition Clinical Impression: Dyspnea, Anemia Disposition: ADMITTED IP TO THIS HOSP Referrals: Doug Beck MD [Primary Care Provider] - 1-2 days Time of Disposition: 13:42
[2017-03-19 12:44] LABS: Anisocytosis Slight; Basophils % (A) 1 %; CH 21.5; Eosinophils # (A) 0.1 k/uL (0-0.7); Eosinophils % (A) 1 %; HCT 22.6 % (39.0-53.0); Hypochromasia Marked; Luc # (Auto) 0.18; Luc % (Auto) 2; Lymphocytes # (A) 3.3 k/uL (1.0-4.8); Lymphocytes % (A) 41 %; MCH 21.3 pg (25.0-35.0); MCHC 27.7 g/dL (31.0-37.0); Mean Platelet Volume 7.2; Microcytosis Slight; Monocytes # (A) 0.6 k/uL (0-1.0); Monocytes % (A) 7 %; Neutrophils # (A) 3.9 k/uL (1.3-7.7); Neutrophils % (A) 48 %; Poikilocytosis Moderate; RBC 2.94 m/uL (4.30-5.90); RDW 18.2 % (11.5-15.5); WBC 8.1 k/uL (3.8-10.6)
--- NOTE | 2017-03-19 12:47 | XR ---
EXAMINATION TYPE: XR chest 2V DATE OF EXAM: 03/19/2017 COMPARISON: 11/29/2016 HISTORY: 61-year-old male difficulty in breathing TECHNIQUE: Frontal and lateral views FINDINGS: Heart is upper limits of normal in size. Interstitial prominence with small effusions and adjacent op acity. IMPRESSION: Borderline heart size, interstitial changes, and small effusions with adjacent atelectasis and/or con solidation. Correlate for possible [id number]-[id number] CHF.
[2017-03-19 12:48] LABS: ALT 57 U/L (21-72); AST 89 U/L (17-59); Alkaline Phosphatase 95 U/L (38-126); Anion Gap 17 mmol/L; Blood Urea Nitrogen 8 mg/dL (9-20); Calcium 8.2 mg/dL (8.4-10.2); Carbon Dioxide 17 mmol/L (22-30); Chloride 110 mmol/L (98-107); Glucose 138 mg/dL (74-99); Magnesium 1.7 mg/dL (1.6-2.3); Non-African American GFR(MDRD) >60 (>60 ml/min/1.73 sqM); Potassium 3.8 mmol/L (3.5-5.1); Sodium 144 mmol/L (137-145); Total Bilirubin 0.5 mg/dL (0.2-1.3); Total Protein 7.5 g/dL (6.3-8.2)
[2017-03-19 12:51] LABS: HGB 6.3 gm/dL (13.0-17.5)
[2017-03-19 12:54] LABS: INR 1.2 (<1.2); Partial Thromboplastin Time 24.2 sec (22.0-30.0); Prothrombin Time 12.3 sec (9.0-12.0)
[2017-03-19 12:58] LABS: Creatine Kinase 73 U/L (55-170)
[2017-03-19] MEDS ORDERED: FUROSEMIDE 10 MG/ML 2 ML VIAL IV ONE ×2 (13:00→16:58)
[2017-03-19 13:11] LABS: Creatine Kinase MB 0.5 ng/mL (0.0-2.4); Troponin I <0.012 ng/mL (0.000-0.034)
[2017-03-19] MEDS ORDERED: SODIUM CHLORIDE 0.9% 1,000 ML IV ONE (13:42)
--- NOTE | 2017-03-19 14:36 | HP ---
HISTORY AND PHYSICAL CHIEF COMPLAINT: Shortness of breath. HISTORY OF PRESENT ILLNESS: This is another admission for this 61-year-old, white male with a history of hypertension and diabetes. He presented to the emergency room with shortness of breath. His workup revealed that he had a hemoglobin of 6.3. He did admit to having some black tarry stools recently. He denies abdominal pain, indigestion, vomiting, hematemesis, etc. REVIEW OF SYSTEMS: He has had no other complaints. He has had no chest pain, syncope, etc. He has only had shortness of breath. PAST MEDICAL HISTORY, FAMILY HISTORY AND PERSONAL AND SOCIAL HISTORIES: Reveal that he is not allergic to any medication. He is not a smoker, but does drink beer. MEDICATIONS: He has been on Norvasc 10 mg twice a day, metoprolol 50 mg twice a day, metformin 1 g twice a day twice a day. PHYSICAL EXAM: Blood pressure is 108/54 with a pulse of 96, respirations of 32, and he is afebrile. GENERAL: He appeared to be in no acute distress. He was slightly pale. Head, ears, eyes, nose, mouth, and throat were normal. Neck veins not distended. Thyroid is not enlarged. Chest is clear except for occasional rales. Cardiac exam is normal. The abdomen is soft and nontender. Extremities are normal. Neurologic is intact. IMPRESSION: 1. Shortness of breath. 2. Anemia. 3. Probable GI bleeding. 4. History of hypertension. PLAN: 1. Bed rest. 2. IV fluids. 3. GI consult. 4. Transfuse 1 unit. 5. Evaluate for congestive heart failure. MMODL / IJN: [id number] /
[2017-03-19 15:04] VITALS: BMI 29.9
[2017-03-19] MEDS: INSULIN LISPRO (humaLOG) 300 UNIT/3 ML VIAL SQ SCH ×2 (18:19→21:41)
[2017-03-19 18:22] LABS: Glucose,Whole Blood 188 mg/dL (75-99)
[2017-03-19] MEDS: ACETAMINOPHEN TAB 325 MG TAB PO PRN (18:33)
[2017-03-19] MEDS: METOPROLOL TARTRATE 25 MG TAB PO SCH (21:39)
[2017-03-19 23:02] LABS: Glucose,Whole Blood 204 mg/dL (75-99)
[2017-03-20 06:09] LABS: Glucose,Whole Blood 167 mg/dL (75-99)
[2017-03-20] MEDS: INSULIN LISPRO (humaLOG) 300 UNIT/3 ML VIAL SQ SCH ×4 (06:49→21:17)
[2017-03-20 07:07] LABS: Anisocytosis Slight; Basophils % (A) 0 %; CH 22.1; CHCM 28.6; Eosinophils % (A) 0 %; HCT 23.8 % (39.0-53.0); HDW 4.71; Hypochromasia Marked; Luc # (Auto) 0.05; Luc % (Auto) 1; Lymphocytes # (A) 0.5 k/uL (1.0-4.8); Lymphocytes % (A) 9 %; MCH 22.2 pg (25.0-35.0); MCHC 28.6 g/dL (31.0-37.0); MCV 77.4 fL (80.0-100.0); Mean Platelet Volume 9.6; Microcytosis Slight; Monocytes # (A) 0.5 k/uL (0-1.0); Monocytes % (A) 9 %; Neutrophils # (A) 4.6 k/uL (1.3-7.7); Neutrophils % (A) 80 %; Poikilocytosis Marked; RBC 3.07 m/uL (4.30-5.90); RDW 18.3 % (11.5-15.5); WBC 5.8 k/uL (3.8-10.6); WBC (Perox) 5.87
[2017-03-20 07:10] LABS: HGB 6.8 gm/dL (13.0-17.5)
[2017-03-20] MEDS: METOPROLOL TARTRATE 25 MG TAB PO SCH ×2 (07:56→20:33)
[2017-03-20] MEDS: ACETAMINOPHEN TAB 325 MG TAB PO PRN (08:40)
--- NOTE | 2017-03-20 09:34 | CONS ---
CONSULTATION DATE OF SERVICE: 03/20/17 REQUESTING PHYSICIAN: Dr. Beck. REASON FOR CONSULTATION: Severe symptomatic anemia. HISTORY OF PRESENT ILLNESS: The patient is a 61-year-old white male who was admitted to the hospital when he presented with dark colored stools for the last 2 months duration. Sometimes his stools were black and tarry, sometimes thye were greenish in color, but no associated abdominal pain. No nausea, vomiting. His hemoglobin 2 months ago in November 2016, was 14 g/dL. When he came to the emergency room yesterday, hemoglobin was down to 6.3 g/dL, and repeat hemoglobin this morning is 6.8 g/dL. He denies any abdominal pain. No nausea, vomiting, lost about 10 pounds in the last 6 months. No recent NSAID use. He has no prior history of peptic ulcer disease. No prior history of EGD or colonoscopy in the past. PAST MEDICAL HISTORY: Significant for hypertension, hyperlipidemia, diabetes mellitus. MEDICATIONS: At home metformin, amlodipine, and metoprolol. ALLERGIES: TO LISINOPRIL AND EGGS. SOCIAL HISTORY: No smoking or alcohol use. FAMILY HISTORY: Unremarkable. REVIEW OF SYSTEMS: Cardiopulmonary: No chest pain, shortness of breath. Genitourinary: No dysuria or hematuria. Constitutional: No recent weight loss. No fevers, chills or night sweats. Neurology unremarkable. Psychiatric unremarkable. ENT vision unremarkable. Hematology severe anemia as mentioned above. Endocrinology: Unremarkable. PAST SURGICAL HISTORY: Appendectomy and cholecystectomy. PHYSICAL EXAMINATION: He appears comfortable. No apparent distress. VITAL SIGNS: Stable. Blood pressure is 122/65, pulse rate 106, temperature 98.4, HEENT: Unremarkable. Conjunctivae pink. Sclerae anicteric. Oral cavity no lesions. Neck: No jugular venous distention or lymph node enlargement. Chest: Clear to auscultation. HEART: Regular rate and rhythm. ABDOMEN: Soft. Bowel sounds are positive. No organomegaly. Extremities no pedal edema. Skin no rashes. NEUROLOGIC: Alert and oriented x3. No focal deficits. LAB: From today, hemoglobin 6.3, WBC 8.1, MCV 77, platelets are normal. PT of 12.3, INR 1.2. ALT, AST, and bili, alkaline phosphatase. The stool Hemoccult was negative. IMPRESSION: This is a patient who was admitted to hospital with severe symptomatic anemia and hemoglobin of 6.3 g/dL and microcytic in nature, most likely related to occult GI blood loss. Clinically, he has no evidence of active ongoing bleeding. However, the patient did mention that he had some black tarry stools for the last on off for the last 2 months duration. No recent NSAID use. No prior history of peptic ulcer disease. RECOMMENDATIONS: I had a lengthy discussion with the patient regarding workup of her microcytic anemia. At this time, we will proceed with an EGD and colonoscopy tomorrow. I discussed with him the risks, benefits, and complications of procedure and he is agreeable to it. Thank you for this consultation. ROCIO / MICHAEL: [id number] /
[2017-03-20 11:35] LABS: Glucose,Whole Blood 109 mg/dL (75-99)
--- NOTE | 2017-03-20 15:10 | PN ---
PROGRESS NOTE CHIEF COMPLAINT: Shortness of breath and GI blood loss. HISTORY OF PRESENT ILLNESS: This gentleman's hemoglobin is still below 7, even though he has received a unit of blood. PHYSICAL EXAMINATION: He is awake and alert and oriented. Chest is clear. Cardiac exam is normal. IMPRESSION: 1. Blood loss anemia. 2. Gastrointestinal bleeding, source unknown. 3. Shortness of breath. PLAN: 1. Will transfuse another unit of packed cells. 2. He is undergoing upper and lower GI endoscopies tomorrow. MMODL / IJN: [id number] /
[2017-03-20] MEDS ORDERED: PEG 3350-NA SULF,BICARB,CL/KCL 4,000 ML BOTTLE PO ONE (16:00)
[2017-03-20 17:11] LABS: Glucose,Whole Blood 123 mg/dL (75-99)
[2017-03-20 21:01] LABS: Glucose,Whole Blood 137 mg/dL (75-99)
[2017-03-20 21:25] LABS: Anisocytosis Moderate; CH 23.3; CHCM 29.3; HCT 28.8 % (39.0-53.0); HDW 4.88; Hypochromasia Marked; MCH 23.3 pg (25.0-35.0); MCHC 29.3 g/dL (31.0-37.0); MCV 79.3 fL (80.0-100.0); Mean Platelet Volume 8.7; Microcytosis Slight; Poikilocytosis Marked; RBC 3.63 m/uL (4.30-5.90); RDW 20.6 % (11.5-15.5); WBC 9.4 k/uL (3.8-10.6)
[2017-03-20 21:32] LABS: HGB 8.5 gm/dL (13.0-17.5)
[2017-03-21 01:32] LABS: Anisocytosis Moderate; CH 22.9; CHCM 29.4; HCT 26.2 % (39.0-53.0); HDW 4.93; HGB 7.7 gm/dL (13.0-17.5); Hypochromasia Marked; MCH 22.8 pg (25.0-35.0); MCHC 29.4 g/dL (31.0-37.0); MCV 77.8 fL (80.0-100.0); Mean Platelet Volume 7.8; Microcytosis Moderate; Poikilocytosis Marked; RBC 3.37 m/uL (4.30-5.90); RDW 20.5 % (11.5-15.5); WBC 7.6 k/uL (3.8-10.6)
[2017-03-21 07:20] LABS: Glucose,Whole Blood 97 mg/dL (75-99)
[2017-03-21] MEDS: INSULIN LISPRO (humaLOG) 300 UNIT/3 ML VIAL SQ SCH ×4 (07:59→20:56)
[2017-03-21] MEDS: METOPROLOL TARTRATE 25 MG TAB PO SCH ×2 (08:05→20:57)
[2017-03-21 08:54] LABS: Anisocytosis Slight; CH 23.4; CHCM 29.2; HCT 27.4 % (39.0-53.0); HDW 5.18; HGB 7.7 gm/dL (13.0-17.5); Hypochromasia Marked; MCH 22.4 pg (25.0-35.0); MCHC 28.1 g/dL (31.0-37.0); MCV 79.8 fL (80.0-100.0); Mean Platelet Volume 7.3; Microcytosis Slight; Poikilocytosis Marked; RBC 3.43 m/uL (4.30-5.90); RDW 18.9 % (11.5-15.5); WBC 6.6 k/uL (3.8-10.6)
[2017-03-21] MEDS ORDERED: PROPOFOL 10 MG/ML 20 ML VIAL IV ONE (08:54)
[2017-03-21] MEDS ORDERED: LIDOCAINE 1% INJ 10MG/ML (20 ML MDV) ONE (08:54)
[2017-03-21] MEDS ORDERED: SODIUM CHLORIDE 0.9% 500 ML IV ONE (09:00)
[2017-03-21 09:13] LABS: Anion Gap 10 mmol/L; Blood Urea Nitrogen 8 mg/dL (9-20); Calcium 7.7 mg/dL (8.4-10.2); Carbon Dioxide 25 mmol/L (22-30); Chloride 103 mmol/L (98-107); Glucose 93 mg/dL (74-99); Non-African American GFR(MDRD) >60 (>60 ml/min/1.73 sqM); Potassium 3.3 mmol/L (3.5-5.1); Sodium 138 mmol/L (137-145)
--- NOTE | 2017-03-21 09:26 | P.PCN ---
Date of Procedure: 03/21/17 Procedure(s) Performed: Brief history: Patient is a pleasant 61-year-old white male, scheduled for an elective upper endoscopy as well as colonoscopy as a part of evaluation of microcytic chronic anemia. He has been having intermittent dark stools for the last 2 months duration. He dropped his hemoglobin from 14 to 6.4 g/dL in 4 months. Procedure performed: Esophagogastroduodenoscopy with biopsy Colonoscopy with biopsy Preoperative diagnosis: Intermittent dark stools of 2 months duration Microcytic hypothermic anemia Anesthesia: MAC Procedure: After informed consent was obtained from the patient was brought into the endoscopy unit and IV sedation was administered by anesthesia under continuous monitoring. Initially upper endoscopy was done. The Olympus GF 160 video endoscope was inserted inserted into the mouth and esophagus intubated without any difficulty and was gradually advanced into the stomach and duodenum and carefully examined. The bulb and second part of the duodenum appeared normal. The scope was then withdrawn into the stomach adequately insufflated with air and upon careful examination the antrum appeared normal. The mucosa involving the body, cardia and funshowed changes consistent with mild hypertensive gastropathyThe scope was then withdrawn into the esophagus. The GE junction was located at 40 cm to the incisors. It appeared regular with no erythema erosions or ulcerations. with a nonbleeding small esophageal varices identified. Rest of the esophagus appeared normal. Patient tolerated the procedure well. At this time the patient continued to remain sedation. Initial digital rectal examination was normal. Olympus CF 160 video colonoscope was then inserted into the rectum and gradually advanced to the cecum without any difficulty. Careful examination was performed as the scope was gradually being withdrawn. The prep was excellent. The cecum, ascending colon, transverse colon, descending colon, sigmoid colon and rectum appeared normal. scattered sigmoid diverticulosis seen. There is a 5mm polyp in the proximal rectum that was removed by biopsy. Retroflexion was performed in the rectum and no lesions were noted. Patient tolerated the procedure well. Impression: 1.Upper endoscopy revealed nonbleeding small distal esophageal varices and mild portal hypertensive gastropathy 2.Colonoscopy revealed 5 mm proximal rectal polyp and scattered sigmoid diverticulosis. Recommendations: Findings of this examination were discussed with the patient as well as his family. He'll be started on regular diet. At this time he will be investigated for chronic liver disease based on the findings of upper endoscopy.
[2017-03-21 11:55] LABS: Glucose,Whole Blood 180 mg/dL (75-99)
[2017-03-21 14:02] LABS: Anisocytosis Moderate; CH 22.3; CHCM 29.3; HCT 25.5 % (39.0-53.0); HDW 4.97; HGB 7.7 gm/dL (13.0-17.5); Hypochromasia Marked; MCHC 30.3 g/dL (31.0-37.0); MCV 75.8 fL (80.0-100.0); Mean Platelet Volume 10.4; Microcytosis Moderate; Poikilocytosis Marked; RBC 3.36 m/uL (4.30-5.90); RDW 20.1 % (11.5-15.5)
[2017-03-21 16:24] LABS: Iron Saturation 4.38 (15.00-50.00); Iron(FE) 17 ug/dL (65-175); Total Iron Binding Capacity 388 ug/dL (228-460)
[2017-03-21 16:48] LABS: Glucose,Whole Blood 120 mg/dL (75-99)
[2017-03-21 20:40] LABS: Glucose,Whole Blood 143 mg/dL (75-99)
[2017-03-22] MEDS: ACETAMINOPHEN TAB 325 MG TAB PO PRN (00:41)
[2017-03-22 03:37] LABS: Anion Gap 9 mmol/L; Blood Urea Nitrogen 12 mg/dL (9-20); Calcium 8.3 mg/dL (8.4-10.2); Carbon Dioxide 22 mmol/L (22-30); Chloride 105 mmol/L (98-107); Glucose 118 mg/dL (74-99); Non-African American GFR(MDRD) >60 (>60 ml/min/1.73 sqM); Potassium 3.4 mmol/L (3.5-5.1); Sodium 136 mmol/L (137-145)
[2017-03-22 07:21] LABS: Glucose,Whole Blood 100 mg/dL (75-99)
[2017-03-22] MEDS: INSULIN LISPRO (humaLOG) 300 UNIT/3 ML VIAL SQ SCH ×4 (08:51→21:15)
[2017-03-22] MEDS: METOPROLOL TARTRATE 25 MG TAB PO SCH ×2 (08:53→21:15)
[2017-03-22 12:04] LABS: Glucose,Whole Blood 119 mg/dL (75-99)
[2017-03-22] MEDS ORDERED: Potassium Replacement Protocol 1 EACH MISC MISCELLANE PRN (12:51)
[2017-03-22 13:06] LABS: Anisocytosis Moderate; CH 22.1; CHCM 27.6; HCT 26.4 % (39.0-53.0); HDW 4.37; HGB 7.5 gm/dL (13.0-17.5); Hypochromasia Marked; MCH 22.8 pg (25.0-35.0); MCHC 28.5 g/dL (31.0-37.0); Mean Platelet Volume 11.1; Microcytosis Slight; Poikilocytosis Moderate; RDW 20.5 % (11.5-15.5); WBC 6.7 k/uL (3.8-10.6)
[2017-03-22] MEDS: POTASSIUM CHLORIDE ER 20 MEQ TAB.ER PO SCH ×2 (13:13→15:56)
[2017-03-22 17:19] LABS: Glucose,Whole Blood 105 mg/dL (75-99)
--- NOTE | 2017-03-22 18:18 | PN ---
PROGRESS NOTE DATE OF SERVICE: 03/21/17 CHIEF COMPLAINT: GI bleeding. HISTORY OF PRESENT ILLNESS: This gentleman is going for endoscopies. There has been no further evidence of bleeding. PHYSICAL EXAM: His color looks good. Despite his anemia. Chest is clear. Cardiac exam is normal. The abdomen is soft, nontender without masses. IMPRESSION: 1. Gastrointestinal blood loss. 2. Blood loss anemia. PLAN: Endoscopies today. MMODL / IJN: [id number] /
--- NOTE | 2017-03-22 18:30 | PN ---
PROGRESS NOTE CHIEF COMPLAINT: GI bleeding. HISTORY OF PRESENT ILLNESS: This gentleman is feeling well. Scopes today revealed some gastritis as well as esophageal varices with no evidence of bleeding. He also had diverticulosis thought there were few polyps as well. There has been no sign of any bleeding. He is doing well. His potassium is low, however. PHYSICAL EXAM: CHEST: Clear. Cardiac exam is normal. The abdomen is soft, nontender. EXTREMITIES: Normal. IMPRESSION: 1. Gastrointestinal blood loss. 2. Blood loss anemia. 3. Hypokalemia. PLAN: Correct hypokalemia and monitor at least 1 more day before discharge. MMODL / IJN: [id number] /
[2017-03-22 21:17] LABS: Glucose,Whole Blood 155 mg/dL (75-99)
[2017-03-23 07:27] LABS: Glucose,Whole Blood 118 mg/dL (75-99)
[2017-03-23 07:39] VITALS: BP 115/74; PULSE 96; RESP 18; TEMP 97.8
[2017-03-23] MEDS: INSULIN LISPRO (humaLOG) 300 UNIT/3 ML VIAL SQ SCH ×2 (07:53→12:45)
[2017-03-23] MEDS: METOPROLOL TARTRATE 25 MG TAB PO SCH (07:58)
--- NOTE | 2017-03-23 10:33 | P.PN ---
Subjective Progress Note Date: 03/23/17 Principal diagnosis: Microcytic anemia 61-year-old gentleman status post EGD colonoscopy 2 days ago for evaluation of microcytic anemia and reports of dark-colored bowel movements with findings of mild portal hypertensive gastropathy and small nonbleeding distal esophageal varices. Rectal polypectomy and scattered sigmoid diverticulosis. Based on the upper endoscopy findings evaluation of chronic liver disease is recommended. Platelet count 78-90,000. INR 1.2. Iron indices support iron deficiency anemia. LFTs unremarkable except AST 89. This morning he feels well tolerating diet. No bleeding. Afebrile. Hepatitis B surface antigen and hepatitis C IgG antibody nonreactive. Objective - Vital Signs Vital signs: Vital Signs Temp 97.8 F 03/23/17 07:00 Pulse 96 03/23/17 07:00 Resp 18 03/23/17 07:00 BP 115/74 03/23/17 07:00 Pulse Ox 99 03/23/17 07:00 Intake & Output 03/22/17 03/23/17 03/23/17 18:59 06:59 18:59 Other: # Voids 2 1 - Exam General appearance: The patient is alert, oriented, in no acute distress. HET: Head is normocephalic and atraumatic. Pupils are equal and reactive. Oropharynx is clear without lesions. Neck: Supple without lymphadenopathy. Trachea midline. Heart: S1 S2. Regular rate and rhythm. Lungs: No crackles or wheezes are heard. Abdomen: Soft, nontender, nondistended with bowel sounds. No peritoneal signs. No palpable organomegaly or masses. Extremities: Normal skin color and turgor. No cyanosis, rash, ulceration, clubbing, or edema. Radial and pedal pulses are 2/4 bilaterally. Neurological: No focal deficits. Strength and sensation are grossly intact. - Labs CBC & Chem 7: 03/22/17 02:47 03/22/17 02:47 Labs: Abnormal Lab Results - Last 24 Hours (Table) 03/22/17 03/22/17 03/22/17 Range/Units 02:47 11:50 17:11 RBC 3.30 L (4.30-5.90) m/uL Hgb 7.5 L (13.0-17.5) gm/dL Hct 26.4 L (39.0-53.0) % MCH 22.8 L (25.0-35.0) pg MCHC 28.5 L (31.0-37.0) g/dL RDW 20.5 H (11.5-15.5) % Plt Count 83 L (150-450) k/uL POC Glucose (mg/dL) 119 H 105 H (75-99) mg/dL 03/22/17 03/23/17 Range/Units 21:06 07:07 RBC (4.30-5.90) m/uL Hgb (13.0-17.5) gm/dL Hct (39.0-53.0) % MCH (25.0-35.0) pg MCHC (31.0-37.0) g/dL RDW (11.5-15.5) % Plt Count (150-450) k/uL POC Glucose (mg/dL) 155 H 118 H (75-99) mg/dL Microbiology - Last 24 Hours (Table) 03/19/17 12:06 Blood Culture - Preliminary Blood No Growth after 72 hours Assessment and Plan (1) Microcytic anemia Narrative/Plan: s/p EGD/colonoscopy Current Visit: Yes Status: Acute Code(s): D50.9 - IRON DEFICIENCY ANEMIA, UNSPECIFIED SNOMED Code(s): 514983342 (2) GI bleed Current Visit: Yes Status: Acute Code(s): K92.2 - GASTROINTESTINAL HEMORRHAGE, UNSPECIFIED SNOMED Code(s): 47570988 (3) Esophageal varices Current Visit: Yes Status: Acute Code(s): I85.00 - ESOPHAGEAL VARICES WITHOUT BLEEDING SNOMED Code(s): 85572656 (4) Diverticulosis of colon Current Visit: Yes Status: Acute Code(s): K57.30 - DVRTCLOS OF LG INT W/O PERFORATION OR ABSCESS W/O BLEEDING SNOMED Code(s): 476380378 (5) Thrombocytopenia Current Visit: Yes Status: Acute Code(s): D69.6 - THROMBOCYTOPENIA, UNSPECIFIED SNOMED Code(s): 637664559 Plan: 1. Full serologic workup requested for evaluation of chronic liver disease. Ultrasound of the abdomen. Patient can be discharged from a GI standpoint and follow up in the office in 2-3 weeks for reevaluation. Recommend iron supplementation on discharge. Assessment and plan of care discussed with Dr. Mcdowell
--- NOTE | 2017-03-23 11:33 | US ---
EXAMINATION TYPE: US abdomen limited DATE OF EXAM: 03/23/2017 COMPARISON: US 11/[address] dated February 2012 CLINICAL HISTORY: evaluate for liver disease. Elevated liver enzymes EXAM MEASUREMENTS: Liver Length: 17.1 cm Gallbladder Wall: Surgically absent CBD: 0.3 cm Right Kidney: 10.5 x 6.1 x 4.7 cm Pancreas: Tail obscured by overlying bowel gas, visualized portions show no abnormality Liver: Enlarged, heterogeneous echotexture present Gallbladder: Surgically absent CBD: wnl Right Kidney: No hydronephrosis or masses seen and the cortical medullary differentiation is maintai kyle There is no ascites. IMPRESSION: Postcholecystectomy. Consider hepatocellular disease, hepatic steatosis and there are sandra e limitations to the exam
[2017-03-23 12:19] LABS: Glucose,Whole Blood 108 mg/dL (75-99)
--- NOTE | 2017-03-23 15:19 | DS ---
DISCHARGE SUMMARY CHIEF COMPLAINT: Shortness of breath and anemia with GI bleeding. HISTORY OF PRESENT ILLNESS AND PHYSICAL EXAM: Details of this man's history and physical can be found in the initial workup. LABORATORY STUDIES: While he was in a hospital he had laboratory studies, details which can be found in the laboratory section of his chart. COURSE IN HOSPITAL: After admission, he was placed in bedrest, started on intravenous fluids and he required transfusion. He is seen by Gastroenterology and taken for upper and lower GI endoscopies were he was found to have esophageal varices without bleeding. He also had diverticulosis and it was thought this might be the source of his bleeding. The bleeding stopped and hemoglobin was slowly rising. It was felt that he could go home on seventh. He will go home on his usual activity, diet and regular medications and be seen in the office in a day or 2. FINAL DIAGNOSES: 1. GI bleed. 2. Diverticulosis. 3. Esophageal varices. 4. Blood loss anemia. OPERATIONS: Endoscopies. CONSULTATIONS: Gastroenterology for endoscopy. MMODL / IJN: [id number] /
[2017-03-23 17:13] LABS: ANA w/Reflex to Titer NEGATIVE (NEGATIVE)
== END 2017-03-23 16:35 | disposition home or self-care (01) | DRG 253 ==
LOC: EC 11:44 → 4MS4W 13:42 → 6SEL 17:58 → 4MS4W 03-20 13:48
PROVIDERS: ADMIT Family Medicine; ATTEND Family Medicine
PROC: 0DBP8ZZ Excision of Rectum, Via Natural or Artificial Opening Endoscopic (ICD-10-PCS; principal; 2017-03-19)
PROC: 0DB98ZX Excision of Duodenum, Via Natural or Artificial Opening Endoscopic, Diagnostic (ICD-10-PCS; principal; 2017-03-19)
DX: K92.2 Gastrointestinal hemorrhage, unspecified (principal); D69.6 Thrombocytopenia, unspecified; K76.6 Portal hypertension; I48.91 Unspecified atrial fibrillation; M41.9 Scoliosis, unspecified; D50.0 Iron deficiency anemia secondary to blood loss (chronic); E11.9 Type 2 diabetes mellitus without complications; I10 Essential (primary) hypertension; E78.5 Hyperlipidemia, unspecified; E87.6 Hypokalemia; E78.00 Pure hypercholesterolemia, unspecified; I85.00 Esophageal varices without bleeding; J44.9 Chronic obstructive pulmonary disease, unspecified; K21.9 Gastro-esophageal reflux disease without esophagitis; K29.70 Gastritis, unspecified, without bleeding; K31.89 Other diseases of stomach and duodenum; K57.30 Diverticulosis of large intestine without perforation or abscess without bleeding; K62.1 Rectal polyp; Z79.899 Other long term (current) drug therapy; Z82.3 Family history of stroke; Z82.5 Family history of asthma and other chronic lower respiratory diseases; Z86.711 Personal history of pulmonary embolism; Z86.73 Personal history of transient ischemic attack (TIA), and cerebral infarction without residual deficits; Z88.8 Allergy status to other drugs, medicaments and biological substances; Z91.012 Allergy to eggs
CPT/HCPCS: 36415; 43239; 45380; 71020; 76705; 80048; 80053; 82103; 82105; 82272; 82390; 82550; 82553; 82728; 83036; 83516; 83540; 83550; 83735; 83880; 84165; 84484; 85025; 85027; 85610; 85730; 86038; 86803; 86850; 86900; 86901; 86920; 87040; 87340; 88305; 93005; 96374; 99291

== ENCOUNTER 2017-05-16 05:25 | Observation (INO) | payer OTHER ==
[2017-05-16] MEDS ORDERED: SODIUM CHLORIDE 0.9% 1,000 ML IV STA (05:33)
[2017-05-16] MEDS ORDERED: PROPRANOLOL 10 MG TAB PO STA (05:37)
[2017-05-16] MEDS ORDERED: PANTOPRAZOLE 40 MG/10 ML VIAL IVP STA (05:37)
[2017-05-16] MEDS ORDERED: ONDANSETRON 4 MG/2 ML VIAL IVP STA (05:41)
--- NOTE | 2017-05-16 05:41 | ED ---
General Adult HPI - General Chief complaint: Dizziness Stated complaint: Vertigo Time Seen by Provider: 05/16/17 05:33 Source: patient, EMS, RN notes reviewed, old records reviewed Mode of arrival: EMS Limitations: no limitations - History of Present Illness Initial comments: 62-year-old male presenting with an episode of lightheadedness this morning. This episode occurred while patient was walking to bathroom. Patient has significant past medical history including atrial fibrillation, COPD, GI bleed and esophageal varices as well as hypertension. Patient believes he has a GI bleed. He was recently admitted with gastrointestinal bleeding approximately one month ago. He states he has had dark stools over the past several days. He also complains of some generalized abdominal pain, cough and dyspnea. Patient has also had nausea and vomiting, no blood in his emesis. Last bowel movement was yesterday. No diarrhea. Patient does report subjective fever and chills, he has had nasal congestion and mild productive cough. He has history of COPD, denies current tobacco use. Patient is currently on propranolol and Protonix. No anticoagulation. Denies chest pain. - Related Data Previous Rx's Medication Instructions Recorded amLODIPine BESYLATE [Norvasc] 10 mg PO DAILY #30 tablet 09/02/16 metFORMIN HCL 1,000 mg PO BID #60 tablet 09/02/16 Propranolol [Inderal] 10 mg PO TID #90 tab 04/15/17 Pantoprazole [Protonix] 40 mg PO DAILY #30 tablet. 04/27/17 Allergies Allergy/AdvReac Type Severity Reaction Status Date / Time adhesive tape Allergy Rash/Hives Verified 05/16/17 07:10 egg AdvReac Nausea & Verified 05/16/17 07:10 Vomiting lisinopril AdvReac EYES Verified 05/16/17 07:10 BURN&ITCH/WEAKNESS tomato AdvReac Nausea & Verified 05/16/17 07:10 Vomiting & Diarrhea Review of Systems ROS Statement: Those systems with pertinent positive or pertinent negative responses have been documented in the HPI. ROS Other: All systems not noted in ROS Statement are negative. Past Medical History Past Medical History: Atrial Fibrillation, Chest Pain / Angina, COPD, CVA/TIA, Diabetes Mellitus, GERD/Reflux, GI Bleed, Hyperlipidemia, Hypertension, Pulmonary Embolus (PE) Additional Past Medical History / Comment(s): Pt recently admitted 03/19/17 [facility] with GI bleed/anemia, esophageal varicies/diverticulosis, bilateral ankle edema at times, 2016 bacterial septicemia, TIA, NIDDM type II, high cholesterol but not on med yet, PE L lung 2011, cervical disc disease with neck pain, DDD low back, scoliosis, epilepsy when a child- last known seizure at age 11 however pt sometimes wonders if he has had some since (he gets body shakes and confused on occasion), occasional popping sound to L ear, diverticulitis, viral gastroenteritis, pt stated has bouts of diarrhea off and on. History of Any Multi-Drug Resistant Organisms: None Reported Past Surgical History: Appendectomy, Cholecystectomy Additional Past Surgical History / Comment(s): 03/21/17 EGD/colonoscopy, other colonoscopies. Past Anesthesia/Blood Transfusion Reactions: Previous Problems w/ Anesthesia Additional Past Anesthesia/Blood Transfusion Reaction / Comment(s): after appendix removed sob Past Psychological History: Anxiety, Depression Smoking Status: Never smoker - Past Family History Mother Family Medical History: COPD, CVA/TIA, Dementia Additional Family Medical History / Comment(s): from a stroke Father Family Medical History: Pneumonia Additional Family Medical History / Comment(s): Father of pneumonia when he was close to 80 yrs old. General Exam Limitations: no limitations General appearance: alert, in no apparent distress Head exam: Present: atraumatic, normocephalic Eye exam: Present: normal appearance, PERRL Neck exam: Present: normal inspection. Absent: tenderness, meningismus Respiratory exam: Present: other (Bronchospastic cough). Absent: respiratory distress, wheezes Cardiovascular Exam: Present: normal rhythm, tachycardia GI/Abdominal exam: Present: soft, distended, tenderness (Mild tenderness to palpation.). Absent: guarding, rebound Rectal exam: Present: normal inspection, normal rectal tone. Absent: bloody stool Extremities exam: Present: normal inspection, normal capillary refill, other ( Distal pulses intact). Absent: pedal edema Neurological exam: Present: alert, oriented X3, CN II-XII intact. Absent: motor sensory deficit Psychiatric exam: Present: normal affect, normal mood Skin exam: Present: warm, dry, intact. Absent: cyanosis, diaphoretic Course Vital Signs 05/16/17 05/16/17 05/16/17 05:26 06:10 06:27 Temperature 98.8 F Pulse Rate 132 H 127 H 118 H Respiratory 20 20 18 Rate Blood Pressure 168/93 133/82 137/72 O2 Sat by Pulse 95 97 98 Oximetry 05/16/17 07:02 Temperature Pulse Rate 108 H Respiratory 18 Rate Blood Pressure 133/69 O2 Sat by Pulse 98 Oximetry EKG Findings - EKG Comments: EKG Findings:: EKG shows sinus tachycardia ventricular rate 1:30, VT interval 142, QRS duration 70, QTC 467, no ST segment elevation or depression Medical Decision Making - Medical Decision Making 62-year-old male presenting with nausea vomiting, concern for GI bleed, and lightheadedness. Initial evaluation, patient is tachycardic, EKG shows sinus tachycardia, patient appears dehydrated on examination. He does have history of [place] of abuse, states he drank 1 beer over the past 24 hours. Laboratory studies reveal hemoglobin is 8.8 which is improved from previous of 7.5. Rectal examination is negative for bright red blood, stool testing is heme negative. White blood cell count normal 6.9, white lites within normal limits, influenza test is negative, troponin negative. Lactic acid elevated at 3.2 likely related to dehydration. Patient's given IV fluids so also given normal morning dose of his propranolol, heart rate improves with these therapeutic measures. Chest x-ray: Shows no left-sided infiltrate. Patient has had cough, he is afebrile with normal white blood cell count, however he is given 1 dose of IV antibiotics in the emergency department. Abdominal x-ray: Negative for acute intra-abdominal process, no obstruction or free air Patient will be admitted for treatment of nausea vomiting, dehydration and lactic acidosis, possible pneumonia. - Lab Data Result diagrams: 05/16/17 05:31 05/16/17 05:31 Lab Results 05/16/17 05/16/17 05/16/17 Range/Units 05:31 05:31 05:31 WBC 6.9 (3.8-10.6) k/uL RBC 3.80 L (4.30-5.90) m/uL Hgb 8.8 L (13.0-17.5) gm/dL Hct 30.9 L (39.0-53.0) % MCV 81.2 (80.0-100.0) fL MCH 23.2 L (25.0-35.0) pg MCHC 28.5 L (31.0-37.0) g/dL RDW 20.9 H (11.5-15.5) % Plt Count 223 D (150-450) k/uL Neutrophils % 64 % Lymphocytes % 24 % Monocytes % 8 % Eosinophils % 1 % Basophils % 1 % Neutrophils # 4.4 (1.3-7.7) k/uL Lymphocytes # 1.7 (1.0-4.8) k/uL Monocytes # 0.5 (0-1.0) k/uL Eosinophils # 0.1 (0-0.7) k/uL Basophils # 0.0 (0-0.2) k/uL Hypochromasia Marked Anisocytosis Moderate Microcytosis Slight PT (9.0-12.0) sec INR (<1.2) APTT (22.0-30.0) sec Sodium 144 (137-145) mmol/L Potassium 4.3 (3.5-5.1) mmol/L Chloride 107 (98-107) mmol/L Carbon Dioxide 25 (22-30) mmol/L Anion Gap 12 mmol/L BUN 10 (9-20) mg/dL Creatinine 0.80 (0.66-1.25) mg/dL Est GFR (MDRD) Af Amer >60 (>60 ml/min/1.73 sqM) Est GFR (MDRD) Non-Af >60 (>60 ml/min/1.73 sqM) Glucose 162 H (74-99) mg/dL Plasma Lactic Acid Hitesh (0.7-2.0) mmol/L Calcium 8.7 (8.4-10.2) mg/dL Magnesium 1.6 (1.6-2.3) mg/dL Total Bilirubin 0.4 (0.2-1.3) mg/dL AST 96 H (17-59) U/L ALT 62 (21-72) U/L Alkaline Phosphatase 124 (38-126) U/L Total Creatine Kinase 70 (55-170) U/L CK-MB (CK-2) 0.3 (0.0-2.4) ng/mL CK-MB (CK-2) Rel Index 0.4 Troponin I <0.012 (0.000-0.034) ng/mL NT-Pro-B Natriuret Pep pg/mL Total Protein 7.6 (6.3-8.2) g/dL Albumin 3.3 L (3.5-5.0) g/dL Stool Occult Blood (Negative) Influenza Type A RNA (Not Detectd) Influenza Type B (PCR) (Not Detectd) 05/16/17 05/16/17 05/16/17 Range/Units 05:31 05:31 05:31 WBC (3.8-10.6) k/uL RBC (4.30-5.90) m/uL Hgb (13.0-17.5) gm/dL Hct (39.0-53.0) % MCV (80.0-100.0) fL MCH (25.0-35.0) pg MCHC (31.0-37.0) g/dL RDW (11.5-15.5) % Plt Count (150-450) k/uL Neutrophils % % Lymphocytes % % Monocytes % % Eosinophils % % Basophils % % Neutrophils # (1.3-7.7) k/uL Lymphocytes # (1.0-4.8) k/uL Monocytes # (0-1.0) k/uL Eosinophils # (0-0.7) k/uL Basophils # (0-0.2) k/uL Hypochromasia Anisocytosis Microcytosis PT (9.0-12.0) sec INR (<1.2) APTT (22.0-30.0) sec Sodium (137-145) mmol/L Potassium (3.5-5.1) mmol/L Chloride (98-107) mmol/L Carbon Dioxide (22-30) mmol/L Anion Gap mmol/L BUN (9-20) mg/dL Creatinine (0.66-1.25) mg/dL Est GFR (MDRD) Af Amer (>60 ml/min/1.73 sqM) Est GFR (MDRD) Non-Af (>60 ml/min/1.73 sqM) Glucose (74-99) mg/dL Plasma Lactic Acid Hitesh 3.2 H* (0.7-2.0) mmol/L Calcium (8.4-10.2) mg/dL Magnesium (1.6-2.3) mg/dL Total Bilirubin (0.2-1.3) mg/dL AST (17-59) U/L ALT (21-72) U/L Alkaline Phosphatase (38-126) U/L Total Creatine Kinase (55-170) U/L CK-MB (CK-2) (0.0-2.4) ng/mL CK-MB (CK-2) Rel Index Troponin I (0.000-0.034) ng/mL NT-Pro-B Natriuret Pep 43 pg/mL Total Protein (6.3-8.2) g/dL Albumin (3.5-5.0) g/dL Stool Occult Blood Negative (Negative) Influenza Type A RNA (Not Detectd) Influenza Type B (PCR) (Not Detectd) 05/16/17 05/16/17 Range/Units 05:31 05:42 WBC (3.8-10.6) k/uL RBC (4.30-5.90) m/uL Hgb (13.0-17.5) gm/dL Hct (39.0-53.0) % MCV (80.0-100.0) fL MCH (25.0-35.0) pg MCHC (31.0-37.0) g/dL RDW (11.5-15.5) % Plt Count (150-450) k/uL Neutrophils % % Lymphocytes % % Monocytes % % Eosinophils % % Basophils % % Neutrophils # (1.3-7.7) k/uL Lymphocytes # (1.0-4.8) k/uL Monocytes # (0-1.0) k/uL Eosinophils # (0-0.7) k/uL Basophils # (0-0.2) k/uL Hypochromasia Anisocytosis Microcytosis PT 12.0 (9.0-12.0) sec INR 1.3 H (<1.2) APTT 23.7 (22.0-30.0) sec Sodium (137-145) mmol/L Potassium (3.5-5.1) mmol/L Chloride (98-107) mmol/L Carbon Dioxide (22-30) mmol/L Anion Gap mmol/L BUN (9-20) mg/dL Creatinine (0.66-1.25) mg/dL Est GFR (MDRD) Af Amer (>60 ml/min/1.73 sqM) Est GFR (MDRD) Non-Af (>60 ml/min/1.73 sqM) Glucose (74-99) mg/dL Plasma Lactic Acid Hitesh (0.7-2.0) mmol/L Calcium (8.4-10.2) mg/dL Magnesium (1.6-2.3) mg/dL Total Bilirubin (0.2-1.3) mg/dL AST (17-59) U/L ALT (21-72) U/L Alkaline Phosphatase (38-126) U/L Total Creatine Kinase (55-170) U/L CK-MB (CK-2) (0.0-2.4) ng/mL CK-MB (CK-2) Rel Index Troponin I (0.000-0.034) ng/mL NT-Pro-B Natriuret Pep pg/mL Total Protein (6.3-8.2) g/dL Albumin (3.5-5.0) g/dL Stool Occult Blood (Negative) Influenza Type A RNA Not Detected (Not Detectd) Influenza Type B (PCR) Not Detected (Not Detectd) Disposition Clinical Impression: Nausea and vomiting, ETOH abuse, Anemia, Dehydration, Lactic acidosis Disposition: ADMITTED IP TO THIS [facility] Condition: Stable Referrals: Doug Beck MD [Primary Care Provider] - 1-2 days Decision to Admit Reason: Admit from EC Decision Date: 05/16/17 Decision Time: 06:53
[2017-05-16] MEDS ORDERED: SODIUM CHLORIDE 0.9% 500 ML IV ONE ×3 (05:42→06:41)
[2017-05-16 05:56] LABS: Anisocytosis Moderate; Basophils % (A) 1 %; Eosinophils # (A) 0.1 k/uL (0-0.7); Eosinophils % (A) 1 %; HCT 30.9 % (39.0-53.0); HGB 8.8 gm/dL (13.0-17.5); Hypochromasia Marked; Lymphocytes # (A) 1.7 k/uL (1.0-4.8); Lymphocytes % (A) 24 %; MCH 23.2 pg (25.0-35.0); MCHC 28.5 g/dL (31.0-37.0); MCV 81.2 fL (80.0-100.0); Mean Platelet Volume 7.4; Microcytosis Slight; Monocytes # (A) 0.5 k/uL (0-1.0); Monocytes % (A) 8 %; Neutrophils # (A) 4.4 k/uL (1.3-7.7); Neutrophils % (A) 64 %; RDW 20.9 % (11.5-15.5); WBC 6.9 k/uL (3.8-10.6)
[2017-05-16 05:58] LABS: ALT 62 U/L (21-72); AST 96 U/L (17-59); Albumin 3.3 g/dL (3.5-5.0); Alkaline Phosphatase 124 U/L (38-126); Blood Urea Nitrogen 10 mg/dL (9-20); Calcium 8.7 mg/dL (8.4-10.2); Carbon Dioxide 25 mmol/L (22-30); Chloride 107 mmol/L (98-107); Glucose 162 mg/dL (74-99); Magnesium 1.6 mg/dL (1.6-2.3); Platelet Count 223 k/uL (150-450); Potassium 4.3 mmol/L (3.5-5.1); Total Bilirubin 0.4 mg/dL (0.2-1.3); Total Protein 7.6 g/dL (6.3-8.2)
[2017-05-16 06:01] LABS: INR 1.3 (<1.2); Partial Thromboplastin Time 23.7 sec (22.0-30.0)
[2017-05-16 06:02] LABS: Anion Gap 12 mmol/L; Sodium 144 mmol/L (137-145)
[2017-05-16] MEDS ORDERED: METOPROLOL TARTRATE 5 MG/5 ML VIAL IVP STA (06:02)
[2017-05-16 06:14] LABS: Creatine Kinase 70 U/L (55-170)
[2017-05-16 06:27] LABS: Creatine Kinase MB 0.3 ng/mL (0.0-2.4); Troponin I <0.012 ng/mL (0.000-0.034)
[2017-05-16] MEDS ORDERED: NALOXONE 0.4 MG/ML 1 ML VIAL IV PRN (07:04)
--- NOTE | 2017-05-16 07:13 | XR ---
EXAMINATION TYPE: XR chest 2V DATE OF EXAM: 05/16/2017 COMPARISON: 04/23/2017 HISTORY: Difficulty breathing TECHNIQUE: Frontal and lateral views of the chest are obtained. FINDINGS: There is some coarse interstitial density in the left lung. Right lung is clear. Heart and mediastinum are normal. There are no hilar masses. There is no pleural effusion. Bony thorax is inta ct. IMPRESSION: There is new interstitial pulmonary infiltrate on the left side compared to last exam. N ormal heart.
--- NOTE | 2017-05-16 07:16 | XR ---
EXAMINATION TYPE: XR abdomen 2V DATE OF EXAM: 05/16/2017 COMPARISON: 11/21/2015 HISTORY: Dizziness. Marked stool. Abdominal pain. TECHNIQUE: 3 views FINDINGS: There is no sign of intestinal obstruction or pneumoperitoneum. Fecal pattern is normal. Th ere are clips from cholecystectomy. Lung bases are clear. There is increased interstitial density in the left lower lobe. There are no pathologic calcifications over the kidneys. IMPRESSION: Nonacute abdomen. Interstitial left lower lobe pulmonary infiltrate is increased compared to last exam. This could relate to pulmonary fibrosis.
[2017-05-16] MEDS ORDERED: LEVOFLOXACIN 500MG-D5W PMX 500 MG in DEXTROSE/WATER 1 100ML.BAG IVPB STA (07:19)
[2017-05-16] MEDS: IBUPROFEN 400 MG TAB PO PRN ×2 (07:34→13:48)
[2017-05-16] MEDS: ONDANSETRON 4 MG/2 ML VIAL IVP PRN ×2 (07:34→15:32)
[2017-05-16] MEDS: PROPRANOLOL 10 MG TAB PO SCH ×3 (08:15→20:26)
[2017-05-16] MEDS: amLODIPine 10 MG TAB PO SCH (08:16)
[2017-05-16] MEDS: KETOROLAC 30 MG/ML 1 ML VIAL IVP PRN ×3 (09:50→20:27)
[2017-05-16] MEDS ORDERED: KETOROLAC 30 MG/ML 1 ML VIAL IVP SCH (12:00)
[2017-05-16 12:38] LABS: Glucose,Whole Blood 155 mg/dL (75-99)
[2017-05-16] MEDS: INSULIN ASPART 100 UNIT/ML 1 ML 10 ML VIAL SQ SCH ×3 (12:53→20:26)
--- NOTE | 2017-05-16 13:05 | HP ---
HISTORY AND PHYSICAL DATE OF ADMISSION: 05/16/17 CHIEF COMPLAINT: Dehydration with nausea and vomiting. HISTORY OF PRESENT ILLNESS: This is another admission for this 62-year-old, white male. Just went home recently after he was in for another episode of GI bleeding. He always denies drinking, but he has esophageal varices. He came to the emergency room because of nausea vomiting and was found to be dehydrated. He denies drinking, but he did have an elevated blood alcohol. He thought maybe he was bleeding again because he had some dark stool, but in the emergency room he was Hemoccult negative. He has had no abdominal pain, fever and chills, hematemesis, etc. REVIEW OF SYSTEMS: Otherwise unremarkable. Past medical history, family history, personal and social histories are unchanged and unremarkable. PHYSICAL EXAMINATION: Blood pressure 131/68 with a pulse of 75, respirations 18. He is afebrile. In general, he appeared to be dehydrated and is otherwise in no acute distress. Skin was dry. Lymph nodes not enlarged. Head, ears, eyes, nose, mouth, and throat were normal. Mucous membranes were dry. Neck veins not distended. Chest is clear. Cardiac exam is normal. The abdomen is slightly protuberant. Abdomen soft and nontender without any visceromegaly or masses. Extremities are normal. Neurologically he is intact. IMPRESSION: 1. Dehydration. 2. Chronic alcoholism. 3. Esophageal varices. 4. History of gastrointestinal bleed. PLAN: 1. Bed rest. 2. IV fluids. 3. Clear liquids. 4. Watch for DTs. MMODL / IJN: [id number] /
[2017-05-16 15:16] VITALS: RESP 18
[2017-05-16 17:18] LABS: Glucose,Whole Blood 138 mg/dL (75-99)
[2017-05-16 20:19] LABS: Glucose,Whole Blood 139 mg/dL (75-99)
[2017-05-16] MEDS: DOCUSATE 100 MG CAP PO PRN (21:46)
[2017-05-17] MEDS: KETOROLAC 30 MG/ML 1 ML VIAL IVP PRN ×2 (01:56→17:05)
[2017-05-17 06:50] LABS: Glucose,Whole Blood 122 mg/dL (75-99)
[2017-05-17] MEDS: INSULIN ASPART 100 UNIT/ML 1 ML 10 ML VIAL SQ SCH ×4 (08:37→23:52)
[2017-05-17] MEDS: PANTOPRAZOLE 40 MG TABLET PO SCH (08:38)
[2017-05-17] MEDS: amLODIPine 10 MG TAB PO SCH (08:38)
[2017-05-17] MEDS: PROPRANOLOL 10 MG TAB PO SCH ×3 (08:38→20:37)
[2017-05-17] MEDS: DOCUSATE 100 MG CAP PO PRN (10:35)
[2017-05-17 12:27] LABS: Glucose,Whole Blood 118 mg/dL (75-99)
--- NOTE | 2017-05-17 13:26 | P.PN ---
Subjective Progress Note Date: 05/17/17 Principal diagnosis: Nausea and vomiting Patient seen and examined covering for Dr. Beck. The patient states that he is still having nausea. He is complaining of abdominal pain and constipation. He denies fevers and chills. Objective - Vital Signs Vital signs: Vital Signs Temp 97.8 F 05/17/17 08:00 Pulse 80 05/17/17 12:00 Resp 18 05/17/17 12:00 BP 124/88 05/17/17 08:00 Pulse Ox 98 05/17/17 08:00 Intake & Output 05/16/17 05/17/17 05/17/17 18:59 06:59 18:59 Intake Total 1350 Output Total 200 Balance 1150 Weight 74.8 kg Intake: Oral 1350 Output: Urine 200 Other: Voiding Method Toilet Toilet Toilet # Voids 1 1 - Exam Gen.: Patient is alert and oriented 3, no acute distress Cardiovascular: Regular rate and rhythm, S1/S2 Lungs: Clear to auscultation bilaterally no wheezes rales or rhonchi Abdomen: Soft nontender nondistended positive bowel sounds Extremities: No edema - Labs CBC & Chem 7: 05/16/17 05:31 05/16/17 05:31 Labs: Abnormal Lab Results - Last 24 Hours (Table) 05/16/17 05/16/17 05/17/17 Range/Units 17:15 20:16 06:49 POC Glucose (mg/dL) 138 H 139 H 122 H (75-99) mg/dL 05/17/17 Range/Units 12:06 POC Glucose (mg/dL) 118 H (75-99) mg/dL Microbiology - Last 24 Hours (Table) 05/16/17 05:31 Blood Culture - Preliminary Blood No Growth after 24 hours Assessment and Plan Assessment: Intractable nausea and vomiting Dehydration Chronic alcoholism Cirrhosis, portal hypertension Left basilar infiltrate seen on CXR Anemia, microcytic Elevated lactic acid Esophageal varices History of GI bleed Constipation Abdominal pain Atrial fibrillation History of COPD, not acutely exacerbated History of CVA and TIA Diabetes mellitus type 2 History of GERD Dyslipidemia Hypertension History of PE History of epilepsy as a child Abstinence from alcohol Antiemetics IVF hydration Stool softeners: Colace, add Lactulose Check Ammonia level CT chest without contrast Continue home medications GI and DVT prophylaxis: Protonix, add Lovenox BS control Advance diet Check iron studies, B12, folate Stat MV, thiamine, folate Recheck Lactic acid Repeat labs in AM Covering for Dr. Beck
--- NOTE | 2017-05-17 14:12 | CT ---
EXAMINATION TYPE: CT chest wo con DATE OF EXAM: 05/17/2017 COMPARISON: NONE HISTORY: Left sided chest pain CT DLP: 344.6 mGycm. Automated Exposure Control for Dose Reduction was Utilized. TECHNIQUE: CT scan of the thorax is performed without IV contrast. FINDINGS: There is coarse interstitial density in the left lung more than the right. This is more noticeable in the left lower lobe. There is no pericardial effusion. There is no pleural effusion. Thoracic aorta is atheromatous. There is no mediastinal adenopathy. I see no hilar mass. There is some spurring in t he thoracic spine. There is a 7 mm calcified subpleural granuloma in the lateral left lung. IMPRESSION: Interstitial fibrotic changes in the left lung have progressed compared to old CT scan of --12. No evidence of a pulmonary mass. Old granulomatous disease.
[2017-05-17 15:24] LABS: Lactic Acid, Venous 2.4 mmol/L (0.7-2.0)
[2017-05-17] MEDS: ENOXAPARIN 40 MG/0.4 ML SYRINGE SQ SCH (15:30)
[2017-05-17] MEDS: SODIUM CHLORIDE 0.9% 1,000 ML IV SCH (15:30)
[2017-05-17 17:02] LABS: Glucose,Whole Blood 91 mg/dL (75-99)
[2017-05-17 20:44] LABS: Glucose,Whole Blood 114 mg/dL (75-99)
[2017-05-17 22:45] LABS: Iron Saturation 48.25 (15.00-50.00)
[2017-05-18 06:50] LABS: Glucose,Whole Blood 108 mg/dL (75-99)
[2017-05-18 07:08] LABS: Anisocytosis Moderate; HCT 29.2 % (39.0-53.0); HGB 8.4 gm/dL (13.0-17.5); Hypochromasia Marked; MCH 23.2 pg (25.0-35.0); MCHC 28.7 g/dL (31.0-37.0); MCV 80.8 fL (80.0-100.0); Microcytosis Moderate; Platelet Count 153 k/uL (150-450); RBC 3.61 m/uL (4.30-5.90); RDW 22.8 % (11.5-15.5); WBC 5.6 k/uL (3.8-10.6)
[2017-05-18 07:26] LABS: ALT 50 U/L (21-72); AST 83 U/L (17-59); Albumin 2.8 g/dL (3.5-5.0); Alkaline Phosphatase 123 U/L (38-126); Anion Gap 10 mmol/L; Blood Urea Nitrogen 8 mg/dL (9-20); Calcium 8.9 mg/dL (8.4-10.2); Carbon Dioxide 25 mmol/L (22-30); Chloride 104 mmol/L (98-107); Glucose 106 mg/dL (74-99); Potassium 3.8 mmol/L (3.5-5.1); Sodium 139 mmol/L (137-145); Total Protein 6.8 g/dL (6.3-8.2)
[2017-05-18] MEDS: INSULIN ASPART 100 UNIT/ML 1 ML 10 ML VIAL SQ SCH ×3 (08:24→17:11)
[2017-05-18] MEDS: amLODIPine 10 MG TAB PO SCH (08:25)
[2017-05-18] MEDS: PANTOPRAZOLE 40 MG TABLET PO SCH (08:25)
[2017-05-18] MEDS: PROPRANOLOL 10 MG TAB PO SCH ×2 (08:25→17:13)
[2017-05-18] MEDS: ENOXAPARIN 40 MG/0.4 ML SYRINGE SQ SCH (08:25)
[2017-05-18] MEDS ORDERED: LACTULOSE 20 GM/30 ML CUP PO SCH (09:00)
[2017-05-18] MEDS ORDERED: THIAMINE 100 MG TAB PO SCH (12:00)
[2017-05-18] MEDS ORDERED: FOLIC ACID 1 MG TAB PO SCH (12:00)
[2017-05-18] MEDS ORDERED: MULTIVITAMINS, THERA 1 EACH TAB PO SCH (12:00)
[2017-05-18 12:03] LABS: Glucose,Whole Blood 102 mg/dL (75-99)
[2017-05-18] MEDS: SODIUM CHLORIDE 0.9% 1,000 ML IV SCH (13:32)
[2017-05-18 17:00] LABS: Glucose,Whole Blood 92 mg/dL (75-99)
--- NOTE | 2017-05-19 07:37 | DS ---
DISCHARGE SUMMARY CHIEF COMPLAINT: Dehydration. HISTORY OF PRESENT ILLNESS AND PHYSICAL EXAM: The details of this man's history and physical can be found in the initial workup. LABORATORY STUDIES: While he was in the hospital, he had laboratory studies, details which can be found in the laboratory section of his chart. COURSE IN HOSPITAL: After admission, he was placed on bedrest and he was rehydrated. He had no further evidence of any bleeding. He denied any drinking, but he did have elevated blood alcohol. He is a dishonest unreliable historian. He is doing well. He is having no problems on 05/18 and it was felt that he could go home. He will go home on his usual activity, diet, and medication and will be seen in the office, if he comes. FINAL DIAGNOSES: 1. Dehydration. 2. Chronic alcoholism. 3. Esophageal varices. 4. Blood loss anemia. OPERATIONS: None. CONSULTATION: None. He is improved. MMODL / IJN: [id number] /
[2017-05-19 22:55] VITALS: BP 110/67; PULSE 99; TEMP 98.5
== END 2017-05-18 18:46 | disposition home or self-care (01) ==
LOC: EC 05:25 → 4MS4W 07:04 → 3OBS 20:01
PROVIDERS: ADMIT Family Medicine; ATTEND Family Medicine
DX: E86.0 Dehydration (principal); F10.20 Alcohol dependence, uncomplicated; I85.00 Esophageal varices without bleeding; D50.0 Iron deficiency anemia secondary to blood loss (chronic); I48.91 Unspecified atrial fibrillation; I10 Essential (primary) hypertension; J44.9 Chronic obstructive pulmonary disease, unspecified; K21.9 Gastro-esophageal reflux disease without esophagitis; E78.5 Hyperlipidemia, unspecified; E11.9 Type 2 diabetes mellitus without complications; K57.90 Diverticulosis of intestine, part unspecified, without perforation or abscess without bleeding; F41.9 Anxiety disorder, unspecified; F32.9 Major depressive disorder, single episode, unspecified; M50.80 Other cervical disc disorders, unspecified cervical region; M51.36 Other intervertebral disc degeneration, lumbar region; M41.9 Scoliosis, unspecified; R11.2 Nausea with vomiting, unspecified; Z79.899 Other long term (current) drug therapy; Z79.84 Long term (current) use of oral hypoglycemic drugs; Z91.012 Allergy to eggs; Z88.8 Allergy status to other drugs, medicaments and biological substances; Z91.018 Allergy to other foods; Z91.048 Other nonmedicinal substance allergy status; Z86.73 Personal history of transient ischemic attack (TIA), and cerebral infarction without residual deficits; Z86.711 Personal history of pulmonary embolism; Z86.69 Personal history of other diseases of the nervous system and sense organs; Z87.19 Personal history of other diseases of the digestive system; K59.00 Constipation, unspecified; K76.6 Portal hypertension; K74.60 Unspecified cirrhosis of liver
CPT/HCPCS: 96361 ×2; 96365; 96372 ×2; 96375 ×2; 96376 ×2; 99285; 36415; 93005; 83880; 80053 ×2; 82607; 82728; 82140; 82550; 82553; 82746; 83540; 83550; 83605 ×2; 83735; 84484; 85025; 85027; 85610; 85730; 82272; 87040; 80320; 87502; 71020; 74020; 71250; G0378 ×4; J2405; J1956; J1650 ×2; J1885 ×2; C9113

== ENCOUNTER 2017-05-25 10:26 | Emergency (ER) | payer OTHER ==
[2017-05-25 10:32] VITALS: RESP 18
[2017-05-25] MEDS ORDERED: SODIUM CHLORIDE 0.9% 1,000 ML IV STA (10:59)
[2017-05-25] MEDS ORDERED: ONDANSETRON 4 MG/2 ML VIAL IVP STA (10:59)
[2017-05-25] MEDS ORDERED: SODIUM CHLORIDE 0.9% 1,000 ML IV SCH (11:00)
--- NOTE | 2017-05-25 11:05 | ED ---
General Adult HPI - General Chief complaint: Dizziness Stated complaint: Dizziness, Poss GI Bleed Time Seen by Provider: 05/25/17 10:27 Source: patient, EMS, RN notes reviewed, old records reviewed Mode of arrival: EMS Limitations: no limitations - History of Present Illness Initial comments: 62-year-old male presents for evaluation of lightheadedness, nausea vomiting, and dark tarry stools. Patient has history of GI bleed. He states that this morning he had a single episode of melanotic stool. No bright red blood. No preceding melena over the past several days. Patient is a daily drinker, states he last drank 2 beers yesterday. States his vomiting has been clear fluid, mostly dry heaving. Denies any focal neurological complaints. States he has some mild abdominal pain with this. Patient has had similar episodes of this in the past. Denies any chest pain or shortness of breath. Denies headache. - Related Data Previous Rx's Medication Instructions Recorded amLODIPine BESYLATE [Norvasc] 10 mg PO DAILY #30 tablet 09/02/16 metFORMIN HCL 1,000 mg PO BID #60 tablet 09/02/16 Propranolol [Inderal] 10 mg PO TID #90 tab 04/15/17 Pantoprazole [Protonix] 40 mg PO DAILY #30 tablet. 04/27/17 Allergies Allergy/AdvReac Type Severity Reaction Status Date / Time adhesive tape Allergy Rash/Hives Verified 05/25/17 10:40 egg AdvReac Nausea & Verified 05/25/17 10:40 Vomiting lisinopril AdvReac EYES Verified 05/25/17 10:40 BURN&ITCH/WEAKNESS tomato AdvReac Nausea & Verified 05/25/17 10:40 Vomiting & Diarrhea Review of Systems ROS Statement: Those systems with pertinent positive or pertinent negative responses have been documented in the HPI. ROS Other: All systems not noted in ROS Statement are negative. Past Medical History Past Medical History: Atrial Fibrillation, Chest Pain / Angina, COPD, CVA/TIA, Diabetes Mellitus, GERD/Reflux, GI Bleed, Hyperlipidemia, Hypertension, Pulmonary Embolus (PE) Additional Past Medical History / Comment(s): Pt recently admitted 03/19/17 [facility] with GI bleed/anemia, esophageal varicies/diverticulosis, bilateral ankle edema at times, 2016 bacterial septicemia, TIA, NIDDM type II, high cholesterol but not on med yet, PE L lung 2011, cervical disc disease with neck pain, DDD low back, scoliosis, epilepsy when a child- last known seizure at age 11 however pt sometimes wonders if he has had some since (he gets body shakes and confused on occasion), occasional popping sound to L ear, diverticulitis, viral gastroenteritis, pt stated has bouts of diarrhea off and on. History of Any Multi-Drug Resistant Organisms: None Reported Past Surgical History: Appendectomy, Cholecystectomy Additional Past Surgical History / Comment(s): 03/21/17 EGD/colonoscopy, other colonoscopies. Past Anesthesia/Blood Transfusion Reactions: Previous Problems w/ Anesthesia Additional Past Anesthesia/Blood Transfusion Reaction / Comment(s): after appendix removed sob Past Psychological History: Anxiety, Depression Smoking Status: Never smoker Past Alcohol Use History: None Reported Past Drug Use History: None Reported - Past Family History Mother Family Medical History: COPD, CVA/TIA, Dementia Additional Family Medical History / Comment(s): from a stroke Father Family Medical History: Pneumonia Additional Family Medical History / Comment(s): Father of pneumonia when he was close to 80 yrs old. General Exam Limitations: no limitations General appearance: alert, in no apparent distress Head exam: Present: atraumatic, normocephalic Eye exam: Present: normal appearance, PERRL ENT exam: Present: mucous membranes dry Neck exam: Present: normal inspection. Absent: tenderness, meningismus Respiratory exam: Present: normal lung sounds bilaterally. Absent: respiratory distress Cardiovascular Exam: Present: regular rate, normal rhythm GI/Abdominal exam: Present: soft. Absent: distended Rectal exam: Present: normal inspection, normal rectal tone. Absent: black stool, bloody stool Extremities exam: Present: normal inspection, normal capillary refill. Absent: pedal edema Back exam: Present: normal inspection, full ROM. Absent: tenderness Neurological exam: Present: alert, oriented X3, CN II-XII intact, other (No ataxia). Absent: motor sensory deficit Psychiatric exam: Present: normal affect, normal mood Skin exam: Present: warm, dry, intact. Absent: cyanosis, diaphoretic Course Vital Signs 05/25/17 05/25/17 05/25/17 10:29 11:05 12:14 Temperature 97.8 F 99.4 F 98.7 F Pulse Rate 102 H 104 H 108 H Respiratory 18 18 18 Rate Blood Pressure 175/100 151/88 174/96 O2 Sat by Pulse 97 96 97 Oximetry 05/25/17 14:03 Temperature Pulse Rate 108 H Respiratory 18 Rate Blood Pressure 161/90 O2 Sat by Pulse 97 Oximetry EKG Findings - EKG Comments: EKG Findings:: EKG shows sinus tachycardia with PVC, left ventricular hypertrophy, ventricular rate 105, CO interval 158, castration 78, QTC 494, no ST segment elevation Medical Decision Making - Medical Decision Making 62-year-old male chronic alcoholic presenting for evaluation of nausea vomiting lightheadedness and concern for dark stool. On examination patient is well- appearing. Rectal exam negative for blood or blood, negative for melena, Hemoccult is negative. Laboratory studies reveal hemoglobin 8.8 which is improved from previous of 8.4. There is lactic acid of 2.0 which is likely secondary to dehydration and alcohol abuse. Magnesium 1.5. This is replaced. Patient also received 2 L of normal saline. Case is discussed with patient's primary care physician Dr. Beck, these issues are chronic in nature. He will follow-up with the patient has an outpatient. - Lab Data Result diagrams: 05/25/17 10:37 05/25/17 10:37 Lab Results 05/25/17 05/25/17 05/25/17 Range/Units 10:37 10:37 10:37 WBC 3.4 L (3.8-10.6) k/uL RBC 3.74 L (4.30-5.90) m/uL Hgb 8.8 L (13.0-17.5) gm/dL Hct 30.0 L (39.0-53.0) % MCV 80.3 (80.0-100.0) fL MCH 23.7 L (25.0-35.0) pg MCHC 29.5 L (31.0-37.0) g/dL RDW 20.8 H (11.5-15.5) % Plt Count 126 L (150-450) k/uL Neutrophils % 59 % Lymphocytes % 26 % Monocytes % 11 % Eosinophils % 1 % Basophils % 1 % Neutrophils # 2.0 (1.3-7.7) k/uL Lymphocytes # 0.9 L (1.0-4.8) k/uL Monocytes # 0.4 (0-1.0) k/uL Eosinophils # 0.0 (0-0.7) k/uL Basophils # 0.0 (0-0.2) k/uL Hypochromasia Marked Anisocytosis Moderate Microcytosis Slight PT (9.0-12.0) sec INR (<1.2) Sodium 142 (137-145) mmol/L Potassium 3.9 (3.5-5.1) mmol/L Chloride 104 (98-107) mmol/L Carbon Dioxide 26 (22-30) mmol/L Anion Gap 12 mmol/L BUN 9 (9-20) mg/dL Creatinine 0.60 L (0.66-1.25) mg/dL Est GFR (MDRD) Af Amer >60 (>60 ml/min/1.73 sqM) Est GFR (MDRD) Non-Af >60 (>60 ml/min/1.73 sqM) Glucose 141 H (74-99) mg/dL Plasma Lactic Acid Hitesh 3.0 H* (0.7-2.0) mmol/L Calcium 9.1 (8.4-10.2) mg/dL Magnesium (1.6-2.3) mg/dL Total Bilirubin 0.5 (0.2-1.3) mg/dL AST 96 H (17-59) U/L ALT 52 (21-72) U/L Alkaline Phosphatase 103 (38-126) U/L Troponin I (0.000-0.034) ng/mL Total Protein 7.6 (6.3-8.2) g/dL Albumin 3.5 (3.5-5.0) g/dL Stool Occult Blood (Negative) Serum Alcohol 46 mg/dL 05/25/17 05/25/17 05/25/17 Range/Units 10:37 10:37 10:37 WBC (3.8-10.6) k/uL RBC (4.30-5.90) m/uL Hgb (13.0-17.5) gm/dL Hct (39.0-53.0) % MCV (80.0-100.0) fL MCH (25.0-35.0) pg MCHC (31.0-37.0) g/dL RDW (11.5-15.5) % Plt Count (150-450) k/uL Neutrophils % % Lymphocytes % % Monocytes % % Eosinophils % % Basophils % % Neutrophils # (1.3-7.7) k/uL Lymphocytes # (1.0-4.8) k/uL Monocytes # (0-1.0) k/uL Eosinophils # (0-0.7) k/uL Basophils # (0-0.2) k/uL Hypochromasia Anisocytosis Microcytosis PT 12.0 (9.0-12.0) sec INR 1.3 H (<1.2) Sodium (137-145) mmol/L Potassium (3.5-5.1) mmol/L Chloride (98-107) mmol/L Carbon Dioxide (22-30) mmol/L Anion Gap mmol/L BUN (9-20) mg/dL Creatinine (0.66-1.25) mg/dL Est GFR (MDRD) Af Amer (>60 ml/min/1.73 sqM) Est GFR (MDRD) Non-Af (>60 ml/min/1.73 sqM) Glucose (74-99) mg/dL Plasma Lactic Acid Hitesh (0.7-2.0) mmol/L Calcium (8.4-10.2) mg/dL Magnesium 1.5 L (1.6-2.3) mg/dL Total Bilirubin (0.2-1.3) mg/dL AST (17-59) U/L ALT (21-72) U/L Alkaline Phosphatase (38-126) U/L Troponin I <0.012 (0.000-0.034) ng/mL Total Protein (6.3-8.2) g/dL Albumin (3.5-5.0) g/dL Stool Occult Blood (Negative) Serum Alcohol mg/dL 05/25/17 Range/Units 11:08 WBC (3.8-10.6) k/uL RBC (4.30-5.90) m/uL Hgb (13.0-17.5) gm/dL Hct (39.0-53.0) % MCV (80.0-100.0) fL MCH (25.0-35.0) pg MCHC (31.0-37.0) g/dL RDW (11.5-15.5) % Plt Count (150-450) k/uL Neutrophils % % Lymphocytes % % Monocytes % % Eosinophils % % Basophils % % Neutrophils # (1.3-7.7) k/uL Lymphocytes # (1.0-4.8) k/uL Monocytes # (0-1.0) k/uL Eosinophils # (0-0.7) k/uL Basophils # (0-0.2) k/uL Hypochromasia Anisocytosis Microcytosis PT (9.0-12.0) sec INR (<1.2) Sodium (137-145) mmol/L Potassium (3.5-5.1) mmol/L Chloride (98-107) mmol/L Carbon Dioxide (22-30) mmol/L Anion Gap mmol/L BUN (9-20) mg/dL Creatinine (0.66-1.25) mg/dL Est GFR (MDRD) Af Amer (>60 ml/min/1.73 sqM) Est GFR (MDRD) Non-Af (>60 ml/min/1.73 sqM) Glucose (74-99) mg/dL Plasma Lactic Acid Hitesh (0.7-2.0) mmol/L Calcium (8.4-10.2) mg/dL Magnesium (1.6-2.3) mg/dL Total Bilirubin (0.2-1.3) mg/dL AST (17-59) U/L ALT (21-72) U/L Alkaline Phosphatase (38-126) U/L Troponin I (0.000-0.034) ng/mL Total Protein (6.3-8.2) g/dL Albumin (3.5-5.0) g/dL Stool Occult Blood Negative (Negative) Serum Alcohol mg/dL Disposition Clinical Impression: Lactic acidosis, ETOH abuse, Dehydration Disposition: HOME SELF-CARE Condition: Good Instructions: Abuse of Alcohol (ED), Acute Nausea and Vomiting (ED), Alcohol Dependence (ED) Referrals: Doug Beck MD [Primary Care Provider] - 1-2 days Time of Disposition: 13:44
[2017-05-25 11:12] LABS: Anisocytosis Moderate; Basophils % (A) 1 %; Eosinophils % (A) 1 %; HGB 8.8 gm/dL (13.0-17.5); Hypochromasia Marked; Lymphocytes # (A) 0.9 k/uL (1.0-4.8); Lymphocytes % (A) 26 %; MCH 23.7 pg (25.0-35.0); MCHC 29.5 g/dL (31.0-37.0); MCV 80.3 fL (80.0-100.0); Mean Platelet Volume 7.6; Microcytosis Slight; Monocytes # (A) 0.4 k/uL (0-1.0); Monocytes % (A) 11 %; Neutrophils % (A) 59 %; Platelet Count 126 k/uL (150-450); RBC 3.74 m/uL (4.30-5.90); RDW 20.8 % (11.5-15.5); WBC 3.4 k/uL (3.8-10.6)
[2017-05-25 11:23] LABS: ALT 52 U/L (21-72); AST 96 U/L (17-59); Albumin 3.5 g/dL (3.5-5.0); Alcohol 46 mg/dL; Alkaline Phosphatase 103 U/L (38-126); Anion Gap 12 mmol/L; Blood Urea Nitrogen 9 mg/dL (9-20); Calcium 9.1 mg/dL (8.4-10.2); Carbon Dioxide 26 mmol/L (22-30); Chloride 104 mmol/L (98-107); Glucose 141 mg/dL (74-99); Potassium 3.9 mmol/L (3.5-5.1); Sodium 142 mmol/L (137-145); Total Bilirubin 0.5 mg/dL (0.2-1.3); Total Protein 7.6 g/dL (6.3-8.2)
[2017-05-25 11:56] LABS: INR 1.3 (<1.2)
[2017-05-25] MEDS ORDERED: SODIUM CHLORIDE 0.9% 1,000 ML IV ONE (11:57)
[2017-05-25] MEDS: MAGNESIUM SULFATE-D5W PMX 1 GM in DEXTROSE/WATER 1 100ML.BAG IVPB SCH ×2 (12:21→14:02)
[2017-05-25] MEDS ORDERED: METOCLOPRAMIDE 5 MG/ML 2 ML VIAL IVP STA (12:26)
[2017-05-25 16:46] VITALS: BP 134/69; PULSE 78; TEMP 98.7
== END 2017-05-25 16:46 | disposition home or self-care (01) ==
LOC: EC 10:26
DX: E87.2 Acidosis (principal); E86.0 Dehydration; F10.10 Alcohol abuse, uncomplicated; Z86.73 Personal history of transient ischemic attack (TIA), and cerebral infarction without residual deficits; Z91.048 Other nonmedicinal substance allergy status; Z91.012 Allergy to eggs; Z91.018 Allergy to other foods; Z88.8 Allergy status to other drugs, medicaments and biological substances
CPT/HCPCS: 99285; 96365; 96366; 96375 ×2; 96361 ×2; 36415; 93005; 80053; 83605; 83735; 84484; 85025; 85610; 82272; 80320; J2765; J2405; J3475

== ENCOUNTER 2017-06-02 08:04 | Emergency (ER) | payer OTHER ==
[2017-06-02] MEDS ORDERED: BENZONATATE 100 MG CAP PO STA (08:29)
[2017-06-02] MEDS ORDERED: IPRATROPIUM-ALBUTEROL 3 ML NEB INHALATION STA (08:29)
[2017-06-02] MEDS ORDERED: ACETAMINOPHEN TAB 500 MG TAB PO STA (08:29)
--- NOTE | 2017-06-02 08:29 | ED ---
General Adult HPI - General Chief complaint: Nausea/Vomiting/Diarrhea Stated complaint: Flu like symptoms Time Seen by Provider: 06/02/17 08:10 Source: patient, EMS, RN notes reviewed Mode of arrival: EMS - History of Present Illness Initial comments: 62 yo male presents to the ER with cc of cough and dry heaving. Patient states he's been sick for the last few days. He states that he coughs to the point that he dry heaves. He states there is no production with the cough. He states he has had a little bit of congestion with this. He denies any abdominal pain or chest pain with this. He states that he did have a fever on the way here. He denies the Motrin Tylenol today. Fever concerned due to his continued cough so they thought that they should be seen. Patient denies any recent shortness of breath, chest pain, back pain, abdominal pain, nausea vomiting, numbness or tingling, dysuria or hematuria, constipation or diarrhea, headaches or visual changes, or any other current symptoms. - Related Data Previous Rx's Medication Instructions Recorded amLODIPine BESYLATE [Norvasc] 10 mg PO DAILY #30 tablet 09/02/16 metFORMIN HCL 1,000 mg PO BID #60 tablet 09/02/16 Propranolol [Inderal] 10 mg PO TID #90 tab 04/15/17 Pantoprazole [Protonix] 40 mg PO DAILY #30 tablet. 04/27/17 Albuterol Nebulized [Ventolin 2.5 mg INHALATION Q4H #20 nebu 06/02/17 Nebulized] Azithromycin [Zithromax] 250 mg PO DIRECTED #6 tab 06/02/17 predniSONE 50 mg PO DAILY #5 tab 06/02/17 Allergies Allergy/AdvReac Type Severity Reaction Status Date / Time adhesive tape Allergy Rash/Hives Verified 05/25/17 10:40 egg AdvReac Nausea & Verified 05/25/17 10:40 Vomiting lisinopril AdvReac EYES Verified 05/25/17 10:40 BURN&ITCH/WEAKNESS tomato AdvReac Nausea & Verified 05/25/17 10:40 Vomiting & Diarrhea Review of Systems ROS Statement: Those systems with pertinent positive or pertinent negative responses have been documented in the HPI. ROS Other: All systems not noted in ROS Statement are negative. Past Medical History Past Medical History: Atrial Fibrillation, Chest Pain / Angina, COPD, CVA/TIA, Diabetes Mellitus, GERD/Reflux, GI Bleed, Hyperlipidemia, Hypertension, Pulmonary Embolus (PE) Additional Past Medical History / Comment(s): Pt recently admitted 03/19/17 [facility] with GI bleed/anemia, esophageal varicies/diverticulosis, bilateral ankle edema at times, 2016 bacterial septicemia, TIA, NIDDM type II, high cholesterol but not on med yet, PE L lung 2011, cervical disc disease with neck pain, DDD low back, scoliosis, epilepsy when a child- last known seizure at age 11 however pt sometimes wonders if he has had some since (he gets body shakes and confused on occasion), occasional popping sound to L ear, diverticulitis, viral gastroenteritis, pt stated has bouts of diarrhea off and on. History of Any Multi-Drug Resistant Organisms: None Reported Past Surgical History: Appendectomy, Cholecystectomy Additional Past Surgical History / Comment(s): 03/21/17 EGD/colonoscopy, other colonoscopies. Past Anesthesia/Blood Transfusion Reactions: Previous Problems w/ Anesthesia Additional Past Anesthesia/Blood Transfusion Reaction / Comment(s): after appendix removed sob Past Psychological History: Anxiety, Depression Smoking Status: Never smoker Past Alcohol Use History: None Reported Past Drug Use History: None Reported - Past Family History Mother Family Medical History: COPD, CVA/TIA, Dementia Additional Family Medical History / Comment(s): from a stroke Father Family Medical History: Pneumonia Additional Family Medical History / Comment(s): Father of pneumonia when he was close to 80 yrs old. General Exam - General Exam Comments Initial Comments: General: The patient is awake and alert, in no distress, and does not appear acutely ill. Eye: Pupils are equal, round and reactive to light, extra-ocular movements are intact; there is normal conjunctiva bilaterally. No signs of icterus. Ears, nose, mouth and throat: There are moist mucous membranes. Neck: The neck is supple, there is no tenderness. Cardiovascular: There is a regular rate and rhythm. No murmur, rub or gallop is appreciated. Respiratory: Lungs are clear to auscultation, respirations are non-labored, breath sounds are equal. Minimal extremities, no stridor, rales, or rhonchi. Gastrointestinal: Soft, non-distended, non-tender abdomen without masses or organomegaly noted. There is no rebound or guarding present. No CVA tenderness. Bowel sounds are unremarkable. Back: There is no tenderness to palpation in the midline. There is no obvious deformity. No rashes noted. Musculoskeletal: Normal ROM, no tenderness, There is no pedal edema. There is no calf tenderness or swelling. Sensation intact. Pulses equal bilaterally 2+. Neurological: CN II-XII intact, There are no obvious motor or sensory deficits. Coordination appears grossly intact. Speech is normal. Skin: Skin is warm and dry and no rashes or lesions are noted. Psychiatric: Cooperative, appropriate mood & affect, normal judgment. Course Vital Signs 06/02/17 06/02/17 06/02/17 08:12 08:55 09:03 Temperature 97.5 F L Pulse Rate 104 H 95 96 Respiratory 20 Rate Blood Pressure 181/107 O2 Sat by Pulse 98 Oximetry 06/02/17 09:08 Temperature Pulse Rate 109 H Respiratory 18 Rate Blood Pressure 163/95 O2 Sat by Pulse 96 Oximetry Medical Decision Making - Medical Decision Making At this time lab work is reviewed as well as chest x-ray. At this time lab work does appear to be stable from previous visit. At this time patient does have improvement of wheezing and cough has improved with breathing treatment. At this time he does have a breathing machine at home. We discussed most likely acute bronchitis. We discussed we'll put him on a course of steroids as well as breathing treatments for home. We did discuss close follow-up with his Dr. return parameters all questions. The patient stated that he understood he is given this plan. All questions have been answered. He will be discharged. - Lab Data Result diagrams: 06/02/17 08:30 06/02/17 08:30 Lab Results 06/02/17 06/02/17 06/02/17 Range/Units 08:28 08:30 08:30 WBC 3.6 L (3.8-10.6) k/uL RBC 3.59 L (4.30-5.90) m/uL Hgb 8.5 L (13.0-17.5) gm/dL Hct 28.5 L (39.0-53.0) % MCV 79.3 L (80.0-100.0) fL MCH 23.6 L (25.0-35.0) pg MCHC 29.8 L (31.0-37.0) g/dL RDW 20.5 H (11.5-15.5) % Plt Count 149 L (150-450) k/uL Neutrophils % 64 % Lymphocytes % 24 % Monocytes % 7 % Eosinophils % 2 % Basophils % 0 % Neutrophils # 2.3 (1.3-7.7) k/uL Lymphocytes # 0.9 L (1.0-4.8) k/uL Monocytes # 0.3 (0-1.0) k/uL Eosinophils # 0.1 (0-0.7) k/uL Basophils # 0.0 (0-0.2) k/uL Hypochromasia Marked Anisocytosis Moderate Microcytosis Slight Sodium 140 (137-145) mmol/L Potassium 3.7 (3.5-5.1) mmol/L Chloride 103 (98-107) mmol/L Carbon Dioxide 25 (22-30) mmol/L Anion Gap 12 mmol/L BUN 7 L (9-20) mg/dL Creatinine 0.64 L (0.66-1.25) mg/dL Est GFR (MDRD) Af Amer >60 (>60 ml/min/1.73 sqM) Est GFR (MDRD) Non-Af >60 (>60 ml/min/1.73 sqM) Glucose 151 H (74-99) mg/dL Calcium 8.8 (8.4-10.2) mg/dL Total Bilirubin 0.6 (0.2-1.3) mg/dL AST 96 H (17-59) U/L ALT 48 (21-72) U/L Alkaline Phosphatase 108 (38-126) U/L Total Protein 7.6 (6.3-8.2) g/dL Albumin 3.5 (3.5-5.0) g/dL Influenza Type A RNA Not Detected (Not Detectd) Influenza Type B (PCR) Not Detected (Not Detectd) - Radiology Data Radiology results: report reviewed, image reviewed Disposition Clinical Impression: Acute bronchitis Disposition: HOME SELF-CARE Condition: Stable Instructions: Acute Bronchitis (ED) Additional Instructions: Please use medication as discussed. Please follow up with family doctor if symptoms have not improved over the next two days. Please return to the emergency room if your symptoms increase or worsen or for any other concerns. Prescriptions: Albuterol Nebulized [Ventolin Nebulized] 2.5 mg INHALATION Q4H #20 nebu Azithromycin [Zithromax] 250 mg PO DIRECTED #6 tab predniSONE 50 mg PO DAILY #5 tab Referrals: Doug Beck MD [Primary Care Provider] - 1-2 days Time of Disposition: 09:32
[2017-06-02 08:48] LABS: Anisocytosis Moderate; Basophils % (A) 0 %; Eosinophils # (A) 0.1 k/uL (0-0.7); Eosinophils % (A) 2 %; HCT 28.5 % (39.0-53.0); HGB 8.5 gm/dL (13.0-17.5); Hypochromasia Marked; Lymphocytes # (A) 0.9 k/uL (1.0-4.8); Lymphocytes % (A) 24 %; MCH 23.6 pg (25.0-35.0); MCHC 29.8 g/dL (31.0-37.0); MCV 79.3 fL (80.0-100.0); Mean Platelet Volume 7.3; Microcytosis Slight; Monocytes # (A) 0.3 k/uL (0-1.0); Monocytes % (A) 7 %; Neutrophils # (A) 2.3 k/uL (1.3-7.7); Neutrophils % (A) 64 %; Platelet Count 149 k/uL (150-450); RBC 3.59 m/uL (4.30-5.90); RDW 20.5 % (11.5-15.5); WBC 3.6 k/uL (3.8-10.6)
[2017-06-02 08:59] LABS: ALT 48 U/L (21-72); AST 96 U/L (17-59); Albumin 3.5 g/dL (3.5-5.0); Alkaline Phosphatase 108 U/L (38-126); Anion Gap 12 mmol/L; Blood Urea Nitrogen 7 mg/dL (9-20); Calcium 8.8 mg/dL (8.4-10.2); Carbon Dioxide 25 mmol/L (22-30); Chloride 103 mmol/L (98-107); Glucose 151 mg/dL (74-99); Potassium 3.7 mmol/L (3.5-5.1); Sodium 140 mmol/L (137-145); Total Bilirubin 0.6 mg/dL (0.2-1.3); Total Protein 7.6 g/dL (6.3-8.2)
[2017-06-02 09:10] VITALS: RESP 18
--- NOTE | 2017-06-02 09:17 | XR ---
EXAMINATION TYPE: XR chest 2V DATE OF EXAM: 06/02/2017 COMPARISON: 05/17/2017 and 05/16/2017 HISTORY: Nausea and respiratory symptoms TECHNIQUE: Frontal and lateral views of the chest are obtained. FINDINGS: There is no focal air space opacity, pleural effusion, or pneumothorax seen. The cardiac silhouette size is within normal limits. The osseous structures are intact. Reticular opacity along the periphery of the left lung base is similar to the prior and represents pulmonary fibrosis on CT. Moderate multilevel degenerative changes of the thoracic spine are noted. IMPRESSION: No acute cardiopulmonary process.
[2017-06-02 09:46] VITALS: BP 160/97; PULSE 99; TEMP 98.1
== END 2017-06-02 09:44 | disposition home or self-care (01) ==
LOC: EC 08:04
DX: J20.9 Acute bronchitis, unspecified (principal); J44.9 Chronic obstructive pulmonary disease, unspecified; Z83.6 Family history of other diseases of the respiratory system; Z88.8 Allergy status to other drugs, medicaments and biological substances; Z91.018 Allergy to other foods; Z91.048 Other nonmedicinal substance allergy status; Z91.012 Allergy to eggs
CPT/HCPCS: 36415; 71046; 80053; 85025; 87040; 87502; 94640; 99285

== ENCOUNTER 2017-06-15 08:16 | Emergency (ER) | payer OTHER ==
[2017-06-15 08:27] VITALS: BP 164/92
--- NOTE | 2017-06-15 08:39 | ED ---
Fall HPI - General Chief Complaint: Fall Stated Complaint: Low back pain Time Seen by Provider: 06/15/17 08:17 Source: patient, EMS Mode of arrival: EMS - History of Present Illness Initial Comments: This is a 62 year old male who presents with a chief complaint of low back pain which began after falling yesterday. The patient states that he initially fell face forward first, then stood up and fell backward which is when he landed on his back. He denies loss of consciousness or vision changes associated with the fall. He was brought to the ED by ambulance and was given intranasal Fentanyl. He states that he does not experience pain at rest, but has pain localized to his lower back and radiating pain down his right leg with movement. He has a history of degenerative disc disease in his lumbar spine which has caused the radiating pain down his right leg in the past. However, he states the pain is much more intense since he fell. The patient is ambulate but the pain he experiences is worse with movement. He denies fecal incontinence, urinary retention or saddle paresthesias. - Related Data Home Medications Medication Instructions Recorded Confirmed Albuterol Nebulized [Ventolin 2.5 mg INHALATION RT-Q4H PRN 06/15/17 06/15/17 Nebulized] Previous Rx's Medication Instructions Recorded amLODIPine BESYLATE [Norvasc] 10 mg PO DAILY #30 tablet 09/02/16 metFORMIN HCL 1,000 mg PO BID #60 tablet 09/02/16 Propranolol [Inderal] 10 mg PO TID #90 tab 04/15/17 Pantoprazole [Protonix] 40 mg PO DAILY #30 tablet. 04/27/17 Benzonatate [Tessalon Perles] 100 mg PO TID #20 cap 06/02/17 Hydrocodone/Acetaminophen [[place] 1 tab PO Q6HR PRN #20 tab 06/15/17 5-325] Allergies Allergy/AdvReac Type Severity Reaction Status Date / Time adhesive tape Allergy Rash/Hives Verified 06/15/17 08:19 egg AdvReac Nausea & Verified 06/15/17 08:19 Vomiting lisinopril AdvReac EYES Verified 06/15/17 08:19 BURN&ITCH/WEAKNESS tomato AdvReac Nausea & Verified 06/15/17 08:19 Vomiting & Diarrhea Review of Systems ROS Statement: Those systems with pertinent positive or pertinent negative responses have been documented in the HPI. ROS Other: All systems not noted in ROS Statement are negative. Past Medical History Past Medical History: Atrial Fibrillation, Chest Pain / Angina, COPD, CVA/TIA, Diabetes Mellitus, GERD/Reflux, GI Bleed, Hyperlipidemia, Hypertension, Pulmonary Embolus (PE) Additional Past Medical History / Comment(s): Pt recently admitted 03/19/17 [facility] with GI bleed/anemia, esophageal varicies/diverticulosis, bilateral ankle edema at times, 2016 bacterial septicemia, TIA, NIDDM type II, high cholesterol but not on med yet, PE L lung 2011, cervical disc disease with neck pain, DDD low back, scoliosis, epilepsy when a child- last known seizure at age 11 however pt sometimes wonders if he has had some since (he gets body shakes and confused on occasion), occasional popping sound to L ear, diverticulitis, viral gastroenteritis, pt stated has bouts of diarrhea off and on. History of Any Multi-Drug Resistant Organisms: None Reported Past Surgical History: Appendectomy, Cholecystectomy Additional Past Surgical History / Comment(s): 03/21/17 EGD/colonoscopy, other colonoscopies. Past Anesthesia/Blood Transfusion Reactions: Previous Problems w/ Anesthesia Additional Past Anesthesia/Blood Transfusion Reaction / Comment(s): after appendix removed sob Past Psychological History: Anxiety, Depression Smoking Status: Never smoker Past Alcohol Use History: Occasional Past Drug Use History: None Reported - Past Family History Mother Family Medical History: COPD, CVA/TIA, Dementia Additional Family Medical History / Comment(s): from a stroke Father Family Medical History: Pneumonia Additional Family Medical History / Comment(s): Father of pneumonia when he was close to 80 yrs old. General Exam Limitations: no limitations General appearance: alert, in no apparent distress Head exam: Present: atraumatic, normocephalic, normal inspection Eye exam: Present: normal appearance, PERRL, EOMI. Absent: scleral icterus, conjunctival injection, periorbital swelling Neck exam: Present: normal inspection, full ROM. Absent: tenderness, meningismus, lymphadenopathy Respiratory exam: Present: normal lung sounds bilaterally. Absent: respiratory distress, wheezes, rales, rhonchi, stridor Cardiovascular Exam: Present: regular rate, normal rhythm, normal heart sounds. Absent: systolic murmur, diastolic murmur, rubs, gallop, clicks GI/Abdominal exam: Present: soft, normal bowel sounds. Absent: distended, tenderness, guarding, rebound, rigid Extremities exam: Present: normal inspection, full ROM (Symptoms are reproduced with movement of the lower extremities.), normal capillary refill, other ( Neurovascular remains grossly intact.). Absent: tenderness, pedal edema, joint swelling, calf tenderness Back exam: Present: full ROM, tenderness, vertebral tenderness (Tenderness with palpation is localized to the lumbosacral region.). Absent: CVA tenderness (R) , CVA tenderness (L), paraspinal tenderness Neurological exam: Present: alert, oriented X3, CN II-XII intact, reflexes normal. Absent: motor sensory deficit Psychiatric exam: Present: normal affect, normal mood Skin exam: Present: warm, dry, intact, normal color. Absent: rash Course Vital Signs 06/15/17 08:23 Temperature 97.4 F L Pulse Rate 100 Respiratory 16 Rate Blood Pressure 164/92 O2 Sat by Pulse 98 Oximetry Medical Decision Making - Medical Decision Making 62-year-old male presented unresponsive for several fall on ice. Patient complaining of low back pain after his fall he does have a history of degenerative disc disease. Patient x-rays consistent with this there is no compression fracture. Patient has no red flag symptoms normal neuro exam. Patient we discharged with pain medication advised to follow-up with PCP in one to 2 days return for any worsening symptoms. Disposition Clinical Impression: Fall from slipping on ice, Back pain Disposition: HOME SELF-CARE Condition: Stable Instructions: Back Pain (ED) Additional Instructions: Please return to the Emergency Department if symptoms worsen or any other concerns. Prescriptions: Hydrocodone/Acetaminophen [[place] 5-325] 1 tab PO Q6HR PRN #20 tab PRN Reason: Pain Referrals: Doug Beck MD [Primary Care Provider] - 1-2 days Time of Disposition: 09:13
--- NOTE | 2017-06-15 08:57 | XR ---
EXAMINATION TYPE: XR lumbosacral spine min 4V DATE OF EXAM: 06/15/2017 CLINICAL HISTORY: Fall injury yesterday with low back pain TECHNIQUE: Frontal, lateral, and oblique images of the lumbar spine are obtained. COMPARISON: CT abdomen and pelvis April 23, 2017 FINDINGS: There are only 4 lumbar type vertebral bodies redemonstrated. The lumbar spine redemonstr ates straightened alignment without evidence of acute fracture or dislocation. Vertebral body heights remain within normal limits. There is redemonstration of mild to moderate disc space narrowing and m ild anterior spurring L3-L4 level. There is redemonstration of large anterior and right lateral spurr ing T12-L1 level. There is redemonstration of mild to moderate disc space narrowing most prominent po steriorly L4- S1 level. The oblique images appear within normal limits. Cholecystectomy clips are re demonstrated in the overlying soft tissue. IMPRESSION: No acute fracture or dislocation is seen in the lumbar spine. Straightening of spine wit h multilevel degenerative changes redemonstrated not significantly changed from prior CT.
[2017-06-15 09:25] VITALS: PULSE 94; RESP 18; TEMP 98
== END 2017-06-15 09:25 | disposition home or self-care (01) ==
LOC: EC 08:16
DX: M54.5 Low back pain (principal); M51.36 Other intervertebral disc degeneration, lumbar region; Z91.048 Other nonmedicinal substance allergy status; Z88.8 Allergy status to other drugs, medicaments and biological substances; Z91.018 Allergy to other foods; Z91.012 Allergy to eggs; W00.0XXA Fall on same level due to ice and snow, initial encounter
CPT/HCPCS: 72110; 99283

== ENCOUNTER 2017-07-16 10:41 | Inpatient (IN) | payer OTHER ==
--- NOTE | 2017-07-16 10:50 | ED ---
General Adult HPI - General Stated complaint: GI Bleed Time Seen by Provider: 07/16/17 10:47 Source: RN notes reviewed, old records reviewed - History of Present Illness Initial comments: This is a 62-year-old male to the ER for evaluation of possible GI bleed. Patient has history of A. fib, patient is not currently on anticoagulation. Patient states he has significant weakness feels lightheaded or pass out. Patient is actively vomiting coffee-ground emesis and has had dark tarry stools. Denies abdominal pain. Lightheadedness dizziness continue. No episodes of syncope - Related Data Home Medications Medication Instructions Recorded Confirmed Albuterol Nebulized [Ventolin 2.5 mg INHALATION RT-Q4H PRN 06/15/17 07/16/17 Nebulized] Previous Rx's Medication Instructions Recorded amLODIPine BESYLATE [Norvasc] 10 mg PO DAILY #30 tablet 09/02/16 metFORMIN HCL 1,000 mg PO BID #60 tablet 09/02/16 Propranolol [Inderal] 10 mg PO TID #90 tab 04/15/17 Pantoprazole [Protonix] 40 mg PO DAILY #30 tablet. 04/27/17 Benzonatate [Tessalon Perles] 100 mg PO TID #20 cap 06/02/17 Allergies Allergy/AdvReac Type Severity Reaction Status Date / Time adhesive tape Allergy Rash/Hives Verified 07/16/17 11:46 egg AdvReac Nausea & Verified 07/16/17 11:46 Vomiting lisinopril AdvReac EYES Verified 07/16/17 11:46 BURN&ITCH/WEAKNESS tomato AdvReac Nausea & Verified 07/16/17 11:46 Vomiting & Diarrhea Review of Systems ROS Statement: Those systems with pertinent positive or pertinent negative responses have been documented in the HPI. ROS Other: All systems not noted in ROS Statement are negative. Past Medical History Past Medical History: Atrial Fibrillation, Chest Pain / Angina, COPD, CVA/TIA, Diabetes Mellitus, GERD/Reflux, GI Bleed, Hyperlipidemia, Hypertension, Pulmonary Embolus (PE) Additional Past Medical History / Comment(s): Pt recently admitted 03/19/17 [facility] with GI bleed/anemia, esophageal varicies/diverticulosis, bilateral ankle edema at times, 2016 bacterial septicemia, TIA, NIDDM type II, high cholesterol but not on med yet, PE L lung 2011, cervical disc disease with neck pain, DDD low back, scoliosis, epilepsy when a child- last known seizure at age 11 however pt sometimes wonders if he has had some since (he gets body shakes and confused on occasion), occasional popping sound to L ear, diverticulitis, viral gastroenteritis, pt stated has bouts of diarrhea off and on. History of Any Multi-Drug Resistant Organisms: None Reported Past Surgical History: Appendectomy, Cholecystectomy Additional Past Surgical History / Comment(s): 03/21/17 EGD/colonoscopy, other colonoscopies. Past Anesthesia/Blood Transfusion Reactions: Previous Problems w/ Anesthesia Additional Past Anesthesia/Blood Transfusion Reaction / Comment(s): after appendix removed sob Past Psychological History: Anxiety, Depression Smoking Status: Never smoker Past Alcohol Use History: Occasional Past Drug Use History: None Reported - Past Family History Mother Family Medical History: COPD, CVA/TIA, Dementia Additional Family Medical History / Comment(s): from a stroke Father Family Medical History: Pneumonia Additional Family Medical History / Comment(s): Father of pneumonia when he was close to 80 yrs old. General Exam General appearance: alert, in no apparent distress Head exam: Present: atraumatic, normocephalic, normal inspection Eye exam: Present: normal appearance, PERRL, EOMI. Absent: scleral icterus, conjunctival injection, periorbital swelling ENT exam: Present: normal exam, mucous membranes moist Neck exam: Present: normal inspection. Absent: tenderness, meningismus, lymphadenopathy Respiratory exam: Present: normal lung sounds bilaterally. Absent: respiratory distress, wheezes, rales, rhonchi, stridor Cardiovascular Exam: Present: regular rate, normal rhythm, normal heart sounds. Absent: systolic murmur, diastolic murmur, rubs, gallop, clicks GI/Abdominal exam: Present: soft, normal bowel sounds. Absent: distended, tenderness, guarding, rebound, rigid Extremities exam: Present: normal inspection, full ROM, normal capillary refill. Absent: tenderness, pedal edema, joint swelling, calf tenderness Back exam: Present: normal inspection Neurological exam: Present: alert, oriented X3, CN II-XII intact Psychiatric exam: Present: normal affect, normal mood Skin exam: Present: warm, dry, intact, normal color. Absent: rash Course Vital Signs 03/02/18 03/02/18 10:54 11:07 Temperature 97.8 F Pulse Rate 128 H 127 H Respiratory 16 16 Rate Blood Pressure 143/76 154/71 O2 Sat by Pulse 100 100 Oximetry - Reevaluation(s) Reevaluation #1: 07/16/17 12:22 Patient heart improving with fluids, patient will be transfused secondary low hemoglobin, no current vomiting of blood EKG Findings - EKG Comments: EKG Findings:: EKG shows sinus tachycardia rate 129, ME 144, QRS 70, QTc 471 Medical Decision Making - Medical Decision Making 62 male the ER for evaluation, patient is upper GI bleed, patient will be admitted for further evaluation and monitoring, patient be transfused secondary low hemoglobin. Monitor hemodynamic state - Lab Data Result diagrams: 07/16/17 11:07 07/16/17 11:07 Lab Results 07/16/17 07/16/17 07/16/17 Range/Units 11:07 11:07 11:07 WBC 3.5 L (3.8-10.6) k/uL RBC 2.43 L (4.30-5.90) m/uL Hgb 5.4 L* D (13.0-17.5) gm/dL Hct 19.3 L* (39.0-53.0) % MCV 79.6 L (80.0-100.0) fL MCH 22.2 L (25.0-35.0) pg MCHC 27.9 L (31.0-37.0) g/dL RDW 19.1 H (11.5-15.5) % Plt Count 132 L (150-450) k/uL Neutrophils % 47 % Lymphocytes % 42 % Monocytes % 8 % Eosinophils % 1 % Basophils % 0 % Neutrophils # 1.7 (1.3-7.7) k/uL Lymphocytes # 1.5 (1.0-4.8) k/uL Monocytes # 0.3 (0-1.0) k/uL Eosinophils # 0.0 (0-0.7) k/uL Basophils # 0.0 (0-0.2) k/uL Hypochromasia Marked Poikilocytosis Slight Anisocytosis Slight Microcytosis Slight PT (9.0-12.0) sec INR (<1.2) APTT (22.0-30.0) sec Sodium 146 H (137-145) mmol/L Potassium 3.7 (3.5-5.1) mmol/L Chloride 107 (98-107) mmol/L Carbon Dioxide 25 (22-30) mmol/L Anion Gap 14 mmol/L BUN 19 (9-20) mg/dL Creatinine 0.72 (0.66-1.25) mg/dL Est GFR (MDRD) Af Amer >60 (>60 ml/min/1.73 sqM) Est GFR (MDRD) Non-Af >60 (>60 ml/min/1.73 sqM) Glucose 137 H (74-99) mg/dL Calcium 8.2 L (8.4-10.2) mg/dL Magnesium 1.2 L (1.6-2.3) mg/dL Total Bilirubin 0.3 (0.2-1.3) mg/dL AST 49 (17-59) U/L ALT 33 (21-72) U/L Alkaline Phosphatase 76 (38-126) U/L Total Creatine Kinase 90 (55-170) U/L CK-MB (CK-2) 1.4 (0.0-2.4) ng/mL CK-MB (CK-2) Rel Index 1.6 Troponin I <0.012 (0.000-0.034) ng/mL Total Protein 5.9 L (6.3-8.2) g/dL Albumin 2.9 L (3.5-5.0) g/dL Lipase 244 (23-300) U/L 07/16/17 Range/Units 11:07 WBC (3.8-10.6) k/uL RBC (4.30-5.90) m/uL Hgb (13.0-17.5) gm/dL Hct (39.0-53.0) % MCV (80.0-100.0) fL MCH (25.0-35.0) pg MCHC (31.0-37.0) g/dL RDW (11.5-15.5) % Plt Count (150-450) k/uL Neutrophils % % Lymphocytes % % Monocytes % % Eosinophils % % Basophils % % Neutrophils # (1.3-7.7) k/uL Lymphocytes # (1.0-4.8) k/uL Monocytes # (0-1.0) k/uL Eosinophils # (0-0.7) k/uL Basophils # (0-0.2) k/uL Hypochromasia Poikilocytosis Anisocytosis Microcytosis PT 13.0 H (9.0-12.0) sec INR 1.4 H (<1.2) APTT 21.6 L (22.0-30.0) sec Sodium (137-145) mmol/L Potassium (3.5-5.1) mmol/L Chloride (98-107) mmol/L Carbon Dioxide (22-30) mmol/L Anion Gap mmol/L BUN (9-20) mg/dL Creatinine (0.66-1.25) mg/dL Est GFR (MDRD) Af Amer (>60 ml/min/1.73 sqM) Est GFR (MDRD) Non-Af (>60 ml/min/1.73 sqM) Glucose (74-99) mg/dL Calcium (8.4-10.2) mg/dL Magnesium (1.6-2.3) mg/dL Total Bilirubin (0.2-1.3) mg/dL AST (17-59) U/L ALT (21-72) U/L Alkaline Phosphatase (38-126) U/L Total Creatine Kinase (55-170) U/L CK-MB (CK-2) (0.0-2.4) ng/mL CK-MB (CK-2) Rel Index Troponin I (0.000-0.034) ng/mL Total Protein (6.3-8.2) g/dL Albumin (3.5-5.0) g/dL Lipase (23-300) U/L Critical Care Time Critical Care Time: Yes Total Critical Care Time: 31 Disposition Clinical Impression: Acute blood loss anemia, Upper GI bleed, GI bleed, Anemia Disposition: ADMITTED IP TO THIS [facility] Condition: Serious Referrals: Doug Beck MD [Primary Care Provider] - 1-2 days
[2017-07-16] MEDS ORDERED: PANTOPRAZOLE 40 MG/10 ML VIAL IVP STA (10:53)
[2017-07-16] MEDS: ONDANSETRON 4 MG/2 ML VIAL IM STA ×2 (11:13→18:17)
[2017-07-16 11:34] LABS: Anisocytosis Slight; Basophils % (A) 0 %; Eosinophils % (A) 1 %; Hypochromasia Marked; Lymphocytes # (A) 1.5 k/uL (1.0-4.8); Lymphocytes % (A) 42 %; MCH 22.2 pg (25.0-35.0); MCHC 27.9 g/dL (31.0-37.0); MCV 79.6 fL (80.0-100.0); Mean Platelet Volume 6.7; Microcytosis Slight; Monocytes # (A) 0.3 k/uL (0-1.0); Monocytes % (A) 8 %; Neutrophils # (A) 1.7 k/uL (1.3-7.7); Neutrophils % (A) 47 %; Platelet Count 132 k/uL (150-450); Poikilocytosis Slight; RBC 2.43 m/uL (4.30-5.90); RDW 19.1 % (11.5-15.5); WBC 3.5 k/uL (3.8-10.6)
[2017-07-16 11:44] LABS: HCT 19.3 % (39.0-53.0); HGB 5.4 gm/dL (13.0-17.5)
[2017-07-16 11:46] LABS: ALT 33 U/L (21-72); AST 49 U/L (17-59); Albumin 2.9 g/dL (3.5-5.0); Alkaline Phosphatase 76 U/L (38-126); Anion Gap 14 mmol/L; Blood Urea Nitrogen 19 mg/dL (9-20); Calcium 8.2 mg/dL (8.4-10.2); Carbon Dioxide 25 mmol/L (22-30); Chloride 107 mmol/L (98-107); Glucose 137 mg/dL (74-99); Lipase 244 U/L (23-300); Potassium 3.7 mmol/L (3.5-5.1); Sodium 146 mmol/L (137-145); Total Bilirubin 0.3 mg/dL (0.2-1.3); Total Protein 5.9 g/dL (6.3-8.2)
[2017-07-16 11:49] LABS: Creatine Kinase 90 U/L (55-170)
[2017-07-16 12:01] LABS: Creatine Kinase MB 1.4 ng/mL (0.0-2.4); Troponin I <0.012 ng/mL (0.000-0.034)
[2017-07-16 12:11] LABS: INR 1.4 (<1.2)
[2017-07-16 12:14] LABS: Partial Thromboplastin Time 21.6 sec (22.0-30.0)
[2017-07-16] MEDS ORDERED: NALOXONE 0.4 MG/ML 1 ML VIAL IV PRN (12:18)
[2017-07-16] MEDS ORDERED: OCTREOTIDE 100 MCG/ML INJ IVP STA (12:30)
[2017-07-16] MEDS ORDERED: LORazepam 2 MG/ML INJ IV STA (13:14)
[2017-07-16 14:19] LABS: Glucose,Whole Blood 95 mg/dL (75-99)
[2017-07-16] MEDS ORDERED: SODIUM CHLORIDE 0.45% 1,000 ML IV ONE (16:16)
[2017-07-16] MEDS ORDERED: ALBUTEROL NEBULIZED 2.5 MG/3 ML INHALATION PRN (17:00)
[2017-07-16 17:08] LABS: Glucose,Whole Blood 113 mg/dL (75-99)
[2017-07-16] MEDS: OCTREOTIDE 100 MCG/ML INJ IVP SCH (17:40)
[2017-07-16] MEDS ORDERED: ONDANSETRON 4 MG/2 ML VIAL IVP PRN (18:07)
[2017-07-16] MEDS ORDERED: Magnesium Replacement Protocol 1 EACH MISC MISCELLANE PRN (18:23)
[2017-07-16 18:42] LABS: Anisocytosis Slight; HCT 22.1 % (39.0-53.0); HGB 6.6 gm/dL (13.0-17.5); Hypochromasia Marked; MCH 23.5 pg (25.0-35.0); MCV 78.5 fL (80.0-100.0); Mean Platelet Volume 7.4; Microcytosis Slight; Poikilocytosis Slight; RBC 2.81 m/uL (4.30-5.90); RDW 19.3 % (11.5-15.5); WBC 3.6 k/uL (3.8-10.6)
[2017-07-16 18:43] LABS: Platelet Count 97 k/uL (150-450)
[2017-07-16] MEDS: MAGNESIUM SULFATE-D5W PMX 1 GM in DEXTROSE/WATER 1 100ML.BAG IVPB SCH ×3 (19:30→22:14)
[2017-07-16 20:39] LABS: Appearance,Urine Clear (Clear); Bilirubin,Urine Negative (Negative); Blood,Urine Negative (Negative); Color,Urine Yellow; Glucose,Urine (UA) Negative (Negative); Ketones,Urine 2+ (Negative); Leukocyte Esterase,Urine Negative (Negative); Protein,Urine Negative (Negative); Specific Gravity,Urine 1.017 (1.001-1.035); Urobilinogen,Urine <2.0 mg/dL (<2.0)
[2017-07-16 20:42] LABS: Glucose,Whole Blood 163 mg/dL (75-99)
[2017-07-16] MEDS: PANTOPRAZOLE 40 MG/10 ML VIAL IV SCH (21:10)
[2017-07-16] MEDS ORDERED: INSULIN ASPART 100 UNIT/ML 1 ML 10 ML VIAL SQ ONE (22:10)
[2017-07-17] LABS: Anisocytosis Slight; Basophils % (A) 0 %; Eosinophils % (A) 1 %; HCT 25.3 % (39.0-53.0); HGB 7.5 gm/dL (13.0-17.5); Hypochromasia Marked; Lymphocytes # (A) 1.7 k/uL (1.0-4.8); Lymphocytes % (A) 41 %; MCH 24.4 pg (25.0-35.0); MCHC 29.8 g/dL (31.0-37.0); MCV 81.8 fL (80.0-100.0); Mean Platelet Volume 8.4; Microcytosis Slight; Monocytes # (A) 0.4 k/uL (0-1.0); Monocytes % (A) 9 %; Neutrophils # (A) 1.9 k/uL (1.3-7.7); Neutrophils % (A) 47 %; Platelet Count 100 k/uL (150-450); Poikilocytosis Moderate; RBC 3.09 m/uL (4.30-5.90); RDW 18.4 % (11.5-15.5); WBC 4.1 k/uL (3.8-10.6)
[2017-07-17] MEDS: OCTREOTIDE 100 MCG/ML INJ IVP SCH ×3 (00:40→16:20)
[2017-07-17] MEDS: METOPROLOL TARTRATE 12.5 MG TAB PO SCH ×4 (00:44→21:17)
[2017-07-17 02:17] LABS: Hemoglobin A1C 5.9 % (4.0-6.0)
[2017-07-17 04:50] LABS: Anisocytosis Slight; Basophils % (A) 0 %; Eosinophils % (A) 1 %; HCT 27.3 % (39.0-53.0); HGB 8.2 gm/dL (13.0-17.5); Hypochromasia Marked; Lymphocytes # (A) 1.2 k/uL (1.0-4.8); Lymphocytes % (A) 32 %; MCH 24.3 pg (25.0-35.0); MCHC 29.8 g/dL (31.0-37.0); MCV 81.3 fL (80.0-100.0); Microcytosis Slight; Monocytes # (A) 0.3 k/uL (0-1.0); Monocytes % (A) 7 %; Neutrophils # (A) 2.2 k/uL (1.3-7.7); Neutrophils % (A) 58 %; Platelet Count 104 k/uL (150-450); Poikilocytosis Moderate; RBC 3.36 m/uL (4.30-5.90); RDW 18.5 % (11.5-15.5); WBC 3.9 k/uL (3.8-10.6)
[2017-07-17 04:58] LABS: ALT 38 U/L (21-72); AST 54 U/L (17-59); Alkaline Phosphatase 87 U/L (38-126); Anion Gap 7 mmol/L; Blood Urea Nitrogen 17 mg/dL (9-20); Calcium 7.7 mg/dL (8.4-10.2); Carbon Dioxide 29 mmol/L (22-30); Chloride 103 mmol/L (98-107); Glucose 144 mg/dL (74-99); Phosphorus 2.3 mg/dL (2.5-4.5); Sodium 139 mmol/L (137-145); Total Bilirubin 1.2 mg/dL (0.2-1.3); Total Protein 6.2 g/dL (6.3-8.2)
[2017-07-17 05:00] LABS: INR 1.3 (<1.2); Prothrombin Time 12.4 sec (9.0-12.0)
[2017-07-17] MEDS ORDERED: PANTOPRAZOLE 40 MG TABLET PO SCH (06:30)
[2017-07-17 06:58] LABS: Glucose,Whole Blood 147 mg/dL (75-99)
[2017-07-17] MEDS: ALBUTEROL NEBULIZED 2.5 MG/3 ML INHALATION SCH ×2 (07:43→21:09)
[2017-07-17] MEDS: PANTOPRAZOLE 40 MG/10 ML VIAL IV SCH ×2 (09:44→21:17)
[2017-07-17] MEDS: MAGNESIUM SULFATE-D5W PMX 1 GM in DEXTROSE/WATER 1 100ML.BAG IVPB SCH ×2 (09:46→10:00)
[2017-07-17 09:49] LABS: Glucose,Whole Blood 160 mg/dL (75-99)
[2017-07-17] MEDS: INSULIN ASPART 100 UNIT/ML 1 ML 10 ML VIAL SQ SCH ×4 (09:54→21:11)
--- NOTE | 2017-07-17 16:39 | HP ---
HISTORY AND PHYSICAL CHIEF COMPLAINT: Epigastric discomfort and anemia. HISTORY OF PRESENT ILLNESS: This is another admission for this 62-year-old white male alcoholic who continues to drink, generate GI blood loss and come in with anemia. REVIEW OF SYSTEMS: He has no chest pain, vomiting, hematemesis, melena, hematochezia that he admits to. He has had some epigastric discomfort. PHYSICAL EXAM: Pulse is 132, blood pressure is 102/55, respirations were 35 and he is afebrile. In general, he appeared to be slightly pale, in no acute distress. Skin color is normal. Skin is warm, dry. Lymph nodes not enlarged. Head, ears, eyes, nose, mouth, and throat were normal. Neck veins not distended. Thyroid is not enlarged. Chest is clear. Cardiac exam demonstrates sinus tachycardia and the abdomen is a bit tender over the epigastrium. Bowel sounds are present. Extremities are normal. Neurologically he is intact. IMPRESSION: 1. Blood loss anemia. 2. Chronic alcoholism. PLAN: 1. Bed rest. 2. IV fluids. 3. Transfuse. 4. GI consult. MMODL / IJN: [id number] /
--- NOTE | 2017-07-17 16:48 | PN ---
PROGRESS NOTE CHIEF COMPLAINT: GI bleed and blood loss anemia. HISTORY OF PRESENT ILLNESS: This patient is stable and hemoglobin remains low and he has been transfused. He denies shortness of breath, abdominal pain, chest pain, etc. PHYSICAL EXAM: Chest is clear. Cardiac exam is normal. The abdomen is soft and nontender. IMPRESSION: 1. Gastrointestinal blood loss. 2. Blood loss anemia. 3. Chronic alcoholism. PLAN: No change in program and continue to follow his hemoglobin with GI. MMODL / IJN: [id number] /
[2017-07-17 17:07] LABS: Anisocytosis Slight; Basophils % (A) 0 %; Eosinophils # (A) 0.1 k/uL (0-0.7); Eosinophils % (A) 3 %; HCT 25.2 % (39.0-53.0); HGB 7.8 gm/dL (13.0-17.5); Hypochromasia Marked; Lymphocytes # (A) 1.3 k/uL (1.0-4.8); Lymphocytes % (A) 32 %; MCH 24.4 pg (25.0-35.0); MCHC 30.9 g/dL (31.0-37.0); Microcytosis Slight; Monocytes # (A) 0.3 k/uL (0-1.0); Monocytes % (A) 6 %; Neutrophils # (A) 2.4 k/uL (1.3-7.7); Neutrophils % (A) 57 %; Poikilocytosis Moderate; RBC 3.19 m/uL (4.30-5.90); WBC 4.2 k/uL (3.8-10.6)
[2017-07-17 17:09] LABS: Platelet Count 90 k/uL (150-450)
[2017-07-17 18:04] LABS: Glucose,Whole Blood 243 mg/dL (75-99)
[2017-07-17 21:14] LABS: Glucose,Whole Blood 92 mg/dL (75-99)
[2017-07-17 23:04] LABS: Anisocytosis Slight; Basophils % (A) 0 %; Eosinophils # (A) 0.1 k/uL (0-0.7); Eosinophils % (A) 3 %; HCT 24.6 % (39.0-53.0); HGB 7.6 gm/dL (13.0-17.5); Hypochromasia Marked; Lymphocytes # (A) 1.3 k/uL (1.0-4.8); Lymphocytes % (A) 34 %; MCH 24.5 pg (25.0-35.0); MCHC 30.8 g/dL (31.0-37.0); MCV 79.5 fL (80.0-100.0); Mean Platelet Volume 8.4; Microcytosis Slight; Monocytes # (A) 0.3 k/uL (0-1.0); Monocytes % (A) 7 %; Neutrophils # (A) 2.1 k/uL (1.3-7.7); Neutrophils % (A) 53 %; Poikilocytosis Moderate; RBC 3.09 m/uL (4.30-5.90); RDW 18.8 % (11.5-15.5); WBC 3.9 k/uL (3.8-10.6)
[2017-07-17 23:06] LABS: Platelet Count 98 k/uL (150-450)
[2017-07-18] MEDS: OCTREOTIDE 100 MCG/ML INJ IVP SCH ×2 (01:29→08:03)
[2017-07-18 04:51] LABS: Anisocytosis Slight; Basophils % (A) 0 %; Eosinophils # (A) 0.2 k/uL (0-0.7); Eosinophils % (A) 4 %; HCT 26.9 % (39.0-53.0); Hypochromasia Marked; Lymphocytes # (A) 1.4 k/uL (1.0-4.8); Lymphocytes % (A) 33 %; MCH 24.8 pg (25.0-35.0); MCHC 29.9 g/dL (31.0-37.0); MCV 82.8 fL (80.0-100.0); Mean Platelet Volume 8.4; Microcytosis Slight; Monocytes # (A) 0.3 k/uL (0-1.0); Monocytes % (A) 7 %; Neutrophils # (A) 2.2 k/uL (1.3-7.7); Neutrophils % (A) 55 %; Poikilocytosis Moderate; RBC 3.24 m/uL (4.30-5.90); RDW 18.4 % (11.5-15.5); WBC 4.1 k/uL (3.8-10.6)
[2017-07-18 05:00] LABS: Platelet Count 99 k/uL (150-450)
[2017-07-18 05:06] LABS: ALT 32 U/L (21-72); AST 53 U/L (17-59); Albumin 2.9 g/dL (3.5-5.0); Alkaline Phosphatase 91 U/L (38-126); Anion Gap 7 mmol/L; Blood Urea Nitrogen 10 mg/dL (9-20); Calcium 7.8 mg/dL (8.4-10.2); Carbon Dioxide 28 mmol/L (22-30); Chloride 103 mmol/L (98-107); Glucose 127 mg/dL (74-99); Phosphorus 2.3 mg/dL (2.5-4.5); Potassium 3.9 mmol/L (3.5-5.1); Sodium 138 mmol/L (137-145); Total Protein 6.3 g/dL (6.3-8.2)
[2017-07-18] MEDS ORDERED: POTASSIUM PHOSPHATE 10 MMOL in SODIUM CHLORIDE 0.9% 250 ML IV ONE (05:30)
[2017-07-18] MEDS: MAGNESIUM SULFATE-D5W PMX 1 GM in DEXTROSE/WATER 1 100ML.BAG IVPB SCH ×2 (06:20→12:00)
[2017-07-18] MEDS: ALBUTEROL NEBULIZED 2.5 MG/3 ML INHALATION SCH ×2 (07:23→21:15)
[2017-07-18] MEDS: INSULIN ASPART 100 UNIT/ML 1 ML 10 ML VIAL SQ SCH ×4 (07:50→22:10)
[2017-07-18] MEDS: METOPROLOL TARTRATE 12.5 MG TAB PO SCH ×3 (08:04→20:23)
[2017-07-18] MEDS: PANTOPRAZOLE 40 MG/10 ML VIAL IV SCH ×2 (08:04→20:23)
--- NOTE | 2017-07-18 09:07 | P.CONS ---
History of Present Illness - Reason for Consult Consult date: 07/17/17 GI bleeding - History of Present Illness The patient is a 62-year-old male with past medical history of ETOH abuse, esophageal varices, atrial fibrillation, CVA, diabetes, hyponatremia, hypertension, PE, who was admitted 3 weeks ago with severe symptomatic iron deficiency anemia with dark colored stools 2 months. Iron 17/4.3%. Ferritin 41. Hemoglobin at that time was as low as 6.3. He underwent EGD and colonoscopy with findings of nonbleeding small distal esophageal varices and mild portal hypertensive gastropathy. Colonoscopy showed a 5 mm proximal rectal polyp and scattered sigmoid diverticulosis. Chronic liver disease workup was initiated. Discharge hemoglobin was 7.5. Patient drinks alcohol 3- 4 tall cans a week his last consumption of alcohol was 2 days ago. Patient was readmitted yesterday with a hemoglobin of 6.4 and reports of epigastric discomfort, hematemesis as well as black colored bowel movements. Platelet 235. White count 4.8. INR 1.2. He was transfused 2 units of blood current hemoglobin 7.3. Receiving intravenous Sandostatin. Hepatitis screen nonreactive. Serologic workup for chronic liver disease unremarkable. LFTs unremarkable the exception of AST 74. Patient does not take antiplatelet or anticoagulant medications. Patient had a moderate size black bowel movement this morning. The details are summarized in the history and physical and dictated consultation and progress notes. The patient presented to the emergency room with history of coffee-ground emesis and dark bowel movement. He has been drinking alcohol. His most recent upper endoscopy performed 04/14/2017 showed small esophageal varices without stigmata of bleeding and portal gastropathy which we thought is the likely cause of his bleeding. The possibility of mucosal tear that healed was entertained as well. Review of Systems Constitutional: Denies fever, chills, sweats, weight gain, or loss. HEENT: Negative for migraines, blurred vision or loss, earaches, drainage, tinnitus, oral mucosal lesions, dysphagia, or odynophagia. Cardiac: Negative for chest pain, arrhythmias, or palpitation. Respiratory: Negative for shortness of breath, hemoptysis, cough, or sputum production. Gastrointestinal: See HPI for pertinent findings. Genitourinary: Negative for hematuria, urgency, frequency, polyuria, dysuria. Musculoskeletal: Negative for muscle aches, swelling, arthritis, and arthralgias. Neurologic: Negative for stroke or TIA. Endocrine: Negative for thyroid problems. Skin: Negative for rash or itching. Psychiatric: Negative history for depression and anxiety Past Medical History Past Medical History: Atrial Fibrillation, Chest Pain / Angina, COPD, CVA/TIA, Diabetes Mellitus, GERD/Reflux, GI Bleed, Hyperlipidemia, Hypertension, Pulmonary Embolus (PE) Additional Past Medical History / Comment(s): Upper and lower GI bleeds/anemia, esophageal varicies/diverticulosis, bilateral ankle edema at times, 2016 bacterial septicemia, TIA, NIDDM type II, high cholesterol but not on med yet, PE L lung 2011, cervical disc disease with neck pain goes into R arm, DDD low back goes into R leg, scoliosis, epilepsy when a child- last known seizure at age 11 however pt sometimes wonders if he has had some since (he gets body shakes and confused on occasion), occasional popping sound to L ear, pt stated has bouts of diarrhea off and on. History of Any Multi-Drug Resistant Organisms: None Reported Past Surgical History: Appendectomy, Cholecystectomy Additional Past Surgical History / Comment(s): 03/21/17 EGD/colonoscopy, other colonoscopies. Past Anesthesia/Blood Transfusion Reactions: Previous Problems w/ Anesthesia Additional Past Anesthesia/Blood Transfusion Reaction / Comm: after appendix removed sob Smoking Status: Never smoker - Past Family History Mother Family Medical History: COPD, CVA/TIA, Dementia Additional Family Medical History / Comment(s): from a stroke Father Family Medical History: Pneumonia Additional Family Medical History / Comment(s): Father of pneumonia when he was close to 80 yrs old. Medications and Allergies Home Medications Medication Instructions Recorded Confirmed Type amLODIPine BESYLATE [Norvasc] 10 mg PO DAILY #30 tablet 09/02/16 07/16/17 Rx metFORMIN HCL 1,000 mg PO BID #60 tablet 09/02/16 07/16/17 Rx Propranolol [Inderal] 10 mg PO TID #90 tab 04/15/17 07/16/17 Rx Pantoprazole [Protonix] 40 mg PO DAILY #30 tablet. 04/27/17 07/16/17 Rx Benzonatate [Tessalon Perles] 100 mg PO TID #20 cap 06/02/17 07/16/17 Rx Albuterol Nebulized [Ventolin 2.5 mg INHALATION RT-Q4H PRN 06/15/17 07/16/17 History Nebulized] Allergies Allergy/AdvReac Type Severity Reaction Status Date / Time adhesive tape Allergy Rash/Hives Verified 07/16/17 11:46 egg AdvReac Nausea & Verified 07/16/17 11:46 Vomiting lisinopril AdvReac EYES Verified 07/16/17 11:46 BURN&ITCH/WEAKNESS tomato AdvReac Nausea & Verified 07/16/17 11:46 Vomiting & Diarrhea Physical Exam Vitals: Vital Signs Temp Pulse Resp BP Pulse Ox 07/17/17 09:00 98.3 F 96 19 146/89 97 07/17/17 08:00 105 H 14 153/92 97 07/17/17 07:55 101 H 07/17/17 07:45 94 98 07/17/17 07:00 99 20 145/92 97 07/17/17 06:30 89 16 152/94 97 07/17/17 06:00 99 12 133/80 98 07/17/17 05:30 99 18 143/85 97 07/17/17 05:00 101 H 18 143/85 97 07/17/17 04:30 97 13 144/94 97 07/17/17 04:00 98.6 F 98 13 153/95 98 07/17/17 03:30 90 22 144/93 95 07/17/17 03:00 90 32 H 136/85 92 L 07/17/17 02:30 97 17 153/87 95 07/17/17 02:00 100 16 172/91 97 07/17/17 01:30 112 H 14 175/96 97 07/17/17 01:00 134 H 22 158/90 97 07/17/17 00:30 128 H 32 H 169/90 99 07/17/17 00:00 121 H 6 L 164/93 97 07/16/17 23:30 125 H 38 H 165/96 97 07/16/17 23:23 123 H 20 175/92 97 07/16/17 23:00 127 H 28 H 169/88 96 07/16/17 22:30 126 H 20 146/87 96 07/16/17 22:00 98.5 F 131 H 18 174/93 95 07/16/17 21:50 130 H 26 H 174/93 98 07/16/17 21:40 98.9 F 133 H 20 174/95 96 18 21:30 133 H 18 164/83 99 07/16/17 21:15 133 H 22 143/84 98 07/16/17 21:00 137 H 20 169/88 97 18 20:59 98.9 F 138 H 25 H 169/88 97 07/16/17 20:51 132 H 07/16/17 20:45 132 H 18 163/86 99 07/16/17 20:39 130 H 07/16/17 20:30 134 H 16 149/90 98 07/16/17 20:15 133 H 13 166/87 97 07/16/17 20:00 98.9 F 130 H 29 H 161/98 99 07/16/17 19:45 139 H 34 H 185/93 97 07/16/17 19:30 146 H 34 H 154/89 98 07/16/17 19:15 135 H 9 L 152/91 97 07/16/17 19:00 132 H 21 151/89 95 07/16/17 18:30 132 H 20 156/88 97 0218 18:00 128 H 18 147/88 96 18 17:45 98.7 F 122 H 22 147/88 96 07/16/17 17:00 120 H 13 140/82 97 07/16/17 16:50 123 H 15 140/82 97 02/18 16:40 125 H 15 140/75 97 18 16:30 122 H 15 126/71 96 18 16:20 121 H 16 126/71 96 18 16:00 122 H 16 133/73 98 0218 15:50 121 H 17 133/73 97 18 15:40 122 H 16 121/52 97 02/18 15:30 98.4 F 118 H 16 132/70 96 18 15:20 120 H 15 132/70 97 18 15:19 98.7 F 118 H 17 147/88 98 07/16/17 15:10 98.6 F 119 H 15 105/50 96 07/16/18 15:00 98.6 F 114 H 14 113/61 97 02/18 14:20 98.7 F 119 H 15 131/65 96 03/02/18 14:19 98.7 F 119 H 15 131/65 96 07/16/17 13:49 98.6 F 121 H 18 101/56 95 07/16/17 13:39 98.6 F 128 H 18 113/60 98 07/16/17 13:08 122 H 18 114/67 99 07/16/17 11:07 127 H 16 154/71 100 07/16/17 10:54 97.8 F 128 H 16 143/76 100 Intake and Output 07/16/17 07/17/17 07/17/17 22:59 06:59 14:59 Intake Total 1520 910 150 Output Total 280 1850 1125 Balance 1240 -340 975 Intake: IV 300 600 150 Sodium Chloride 0.45% 1, 300 600 150 000 ml @ 75 mls/hr IV . [id number] ONE Rx#:[id number] Intake, IV Titration 300 Amount Magnesium Sulfate-D5w Pmx 300 1 gm In Dextrose/Water 1 100ml.bag @ 100 mls/hr IVPB Q1H [facility] Rx#: [id number] Blood Product 920 310 Rc As-1 Unit 310 [id number] Rc As-1 Unit 0 310 [id number] Rc As-1 Unit 310 [id number] Output: Urine 280 1850 1125 Emesis 0 Other: Voiding Method Urinal Urinal Weight 80 kg 80 kg Patient Weight 07/18/17 06:59 Weight 80 kg General appearance: The patient is alert, oriented, in no acute distress. HET: Head is normocephalic and atraumatic. Pupils are equal and reactive. Oropharynx is clear without lesions. Neck: Supple without lymphadenopathy. Trachea midline. Heart: S1 S2. Regular rate and rhythm. Lungs: No crackles or wheezes are heard. Abdomen: Soft, nondistended with bowel sounds. No peritoneal signs. No palpable organomegaly or masses. Extremities: Normal skin color and turgor. No cyanosis, rash, ulceration, clubbing, or edema. Radial and pedal pulses are 2/4 bilaterally. Neurological: No focal deficits. Strength and sensation are grossly intact. Results CBC & Chem 7: 07/19/17 07:35 07/19/17 07:35 Labs: Abnormal Lab Results - Last 24 Hours (Table) 07/16/17 07/16/17 07/16/17 Range/Units 11:07 11:07 11:07 WBC 3.5 L (3.8-10.6) k/uL RBC 2.43 L (4.30-5.90) m/uL Hgb 5.4 L* D (13.0-17.5) gm/dL Hct 19.3 L* (39.0-53.0) % MCV 79.6 L (80.0-100.0) fL MCH 22.2 L (25.0-35.0) pg MCHC 27.9 L (31.0-37.0) g/dL RDW 19.1 H (11.5-15.5) % Plt Count 132 L (150-450) k/uL PT 13.0 H (9.0-12.0) sec INR 1.4 H (<1.2) APTT 21.6 L (22.0-30.0) sec Sodium 146 H (137-145) mmol/L Glucose 137 H (74-99) mg/dL POC Glucose (mg/dL) (75-99) mg/dL Calcium 8.2 L (8.4-10.2) mg/dL Phosphorus (2.5-4.5) mg/dL Magnesium 1.2 L (1.6-2.3) mg/dL Total Protein 5.9 L (6.3-8.2) g/dL Albumin 2.9 L (3.5-5.0) g/dL Urine Ketones (Negative) Crossmatch 07/16/17 07/16/17 07/16/17 Range/Units 11:07 17:07 17:35 WBC 3.6 L (3.8-10.6) k/uL RBC 2.81 L (4.30-5.90) m/uL Hgb 6.6 L* (13.0-17.5) gm/dL Hct 22.1 L (39.0-53.0) % MCV 78.5 L (80.0-100.0) fL MCH 23.5 L (25.0-35.0) pg MCHC 30.0 L (31.0-37.0) g/dL RDW 19.3 H (11.5-15.5) % Plt Count 97 L (150-450) k/uL PT (9.0-12.0) sec INR (<1.2) APTT (22.0-30.0) sec Sodium (137-145) mmol/L Glucose (74-99) mg/dL POC Glucose (mg/dL) 113 H (75-99) mg/dL Calcium (8.4-10.2) mg/dL Phosphorus (2.5-4.5) mg/dL Magnesium (1.6-2.3) mg/dL Total Protein (6.3-8.2) g/dL Albumin (3.5-5.0) g/dL Urine Ketones (Negative) Crossmatch See Detail 07/16/17 07/16/17 07/16/17 Range/Units 20:25 20:41 23:43 WBC (3.8-10.6) k/uL RBC 3.09 L (4.30-5.90) m/uL Hgb 7.5 L (13.0-17.5) gm/dL Hct 25.3 L (39.0-53.0) % MCV (80.0-100.0) fL MCH 24.4 L (25.0-35.0) pg MCHC 29.8 L (31.0-37.0) g/dL RDW 18.4 H (11.5-15.5) % Plt Count 100 L (150-450) k/uL PT (9.0-12.0) sec INR (<1.2) APTT (22.0-30.0) sec Sodium (137-145) mmol/L Glucose (74-99) mg/dL POC Glucose (mg/dL) 163 H (75-99) mg/dL Calcium (8.4-10.2) mg/dL Phosphorus (2.5-4.5) mg/dL Magnesium (1.6-2.3) mg/dL Total Protein (6.3-8.2) g/dL Albumin (3.5-5.0) g/dL Urine Ketones 2+ H (Negative) Crossmatch 07/17/17 07/17/17 07/17/17 Range/Units 04:32 04:32 04:32 WBC (3.8-10.6) k/uL RBC 3.36 L (4.30-5.90) m/uL Hgb 8.2 L (13.0-17.5) gm/dL Hct 27.3 L (39.0-53.0) % MCV (80.0-100.0) fL MCH 24.3 L (25.0-35.0) pg MCHC 29.8 L (31.0-37.0) g/dL RDW 18.5 H (11.5-15.5) % Plt Count 104 L (150-450) k/uL PT 12.4 H (9.0-12.0) sec INR 1.3 H (<1.2) APTT (22.0-30.0) sec Sodium (137-145) mmol/L Glucose 144 H (74-99) mg/dL POC Glucose (mg/dL) (75-99) mg/dL Calcium 7.7 L (8.4-10.2) mg/dL Phosphorus 2.3 L (2.5-4.5) mg/dL Magnesium (1.6-2.3) mg/dL Total Protein 6.2 L (6.3-8.2) g/dL Albumin 3.0 L (3.5-5.0) g/dL Urine Ketones (Negative) Crossmatch 07/17/17 07/17/17 Range/Units 06:56 09:47 WBC (3.8-10.6) k/uL RBC (4.30-5.90) m/uL Hgb (13.0-17.5) gm/dL Hct (39.0-53.0) % MCV (80.0-100.0) fL MCH (25.0-35.0) pg MCHC (31.0-37.0) g/dL RDW (11.5-15.5) % Plt Count (150-450) k/uL PT (9.0-12.0) sec INR (<1.2) APTT (22.0-30.0) sec Sodium (137-145) mmol/L Glucose (74-99) mg/dL POC Glucose (mg/dL) 147 H 160 H (75-99) mg/dL Calcium (8.4-10.2) mg/dL Phosphorus (2.5-4.5) mg/dL Magnesium (1.6-2.3) mg/dL Total Protein (6.3-8.2) g/dL Albumin (3.5-5.0) g/dL Urine Ketones (Negative) Crossmatch Microbiology - Last 24 Hours (Table) 07/16/17 20:25 Urine Culture - Preliminary Urine,Voided Assessment and Plan Assessment: Upper GI bleeding likely on the basis of portal gastropathy. Doubt an esophageal source based on his history that would keep that in mind. Plan: Agree with your current management. Will allow clear liquid diet and monitor for another 12-24 hours while on Sandostatin. Contingency repeating his upper endoscopy. Will follow with you with interest.
--- NOTE | 2017-07-18 09:52 | P.PN ---
Subjective Progress Note Date: 07/18/17 Principal diagnosis: GI bleed This is a very pleasant 62-year-old gentleman who has a history of atrial fibrillation not on anticoagulation, CVA/TIA, diabetes mellitus, gastroesophageal reflux disease, previous GI bleed, hyperlipidemia, hypertension , pulmonary embolism. He had previously been admitted here in March 2017 for a GI bleed and EGD at that time revealed a small distal esophageal varices without stigmata of bleeding, portal gastropathy and no evidence of ulcers or bleeding. He presented here to the emergency room for significant weakness and lightheadedness and nearly passing out. He was having coffee-ground emesis and dark tarry stools. He was found to have a hemoglobin of 5.4. He is now status post 3 units of packed red blood cells. Current hemoglobin 8.0. No further bleeding in the last 24 hours. He is currently on Sandostatin at 50 g IV push every 8 hours. Protonix 40 mg IV twice a day. He is seen today in consultation in the intensive care unit. He did not require any pressor support. He is awake and alert in no acute distress. He denies any worsening shortness of breath, cough or congestion. No chills or night sweats. No abdominal discomfort. No active bleeding the past 24 hours. Objective - Vital Signs Vital signs: Vital Signs Temp 97.9 F 07/18/17 08:00 Pulse 84 07/18/17 08:00 Resp 20 07/18/17 08:00 BP 135/83 07/18/17 08:00 Pulse Ox 99 07/18/17 08:00 Intake & Output 07/17/17 07/18/17 07/18/17 18:59 06:59 18:59 Intake Total 1425 1390 20 Output Total 3800 2150 Balance -4429 -954 20 Weight 80 kg 76.7 kg Intake: IV 825 750 20 Sodium Chloride 0.45% 1, 825 750 20 000 ml @ 75 mls/hr IV . [id number] [facility] Rx#:[id number] Intake, IV Titration 100 Amount Magnesium Sulfate-D5w Pmx 100 1 gm In Dextrose/Water 1 100ml.bag @ 100 mls/hr IVPB Q1H [facility] Rx#: [id number] Oral 500 640 Output: Urine 3800 2150 Other: Voiding Method Urinal Urinal # Voids 0 0 - Exam GENERAL EXAM: Alert, active, comfortable in no apparent distress. HEAD: Normocephalic. EYES: Normal reaction of pupils, equal size. NOSE: Clear with pink turbinates. THROAT: No erythema or exudates. NECK: No masses, no JVD. CHEST: No chest wall deformity. LUNGS: Equal air entry with no crackles, wheeze, rhonchi or dullness. CVS: S1 and S2 normal with no audible murmur, regular rhythm. ABDOMEN: No hepatosplenomegaly, normal bowel sounds, no guarding or rigidity. Some vague discomfort. SPINE: No scoliosis or deformity SKIN: No rashes CENTRAL NERVOUS SYSTEM: No focal deficits, tone is normal in all 4 extremities. EXTREMITIES: There is no peripheral edema. No clubbing, no cyanosis. Peripheral pulses are intact. - Labs CBC & Chem 7: 07/18/17 04:33 07/18/17 04:33 Labs: Abnormal Lab Results - Last 24 Hours (Table) 07/17/17 07/17/17 07/17/17 Range/Units 09:47 16:24 18:01 RBC 3.19 L (4.30-5.90) m/uL Hgb 7.8 L (13.0-17.5) gm/dL Hct 25.2 L (39.0-53.0) % MCV 79.0 L (80.0-100.0) fL MCH 24.4 L (25.0-35.0) pg MCHC 30.9 L (31.0-37.0) g/dL RDW 19.0 H (11.5-15.5) % Plt Count 90 L (150-450) k/uL Glucose (74-99) mg/dL POC Glucose (mg/dL) 160 H 243 H (75-99) mg/dL Calcium (8.4-10.2) mg/dL Phosphorus (2.5-4.5) mg/dL Albumin (3.5-5.0) g/dL 07/17/17 07/18/17 07/18/17 Range/Units 22:47 04:33 04:33 RBC 3.09 L 3.24 L (4.30-5.90) m/uL Hgb 7.6 L 8.0 L (13.0-17.5) gm/dL Hct 24.6 L 26.9 L (39.0-53.0) % MCV 79.5 L (80.0-100.0) fL MCH 24.5 L 24.8 L (25.0-35.0) pg MCHC 30.8 L 29.9 L (31.0-37.0) g/dL RDW 18.8 H 18.4 H (11.5-15.5) % Plt Count 98 L 99 L (150-450) k/uL Glucose 127 H (74-99) mg/dL POC Glucose (mg/dL) (75-99) mg/dL Calcium 7.8 L (8.4-10.2) mg/dL Phosphorus 2.3 L (2.5-4.5) mg/dL Albumin 2.9 L (3.5-5.0) g/dL Microbiology - Last 24 Hours (Table) 07/16/17 20:25 Urine Culture - Final Urine,Voided Assessment and Plan Assessment: Impression: #1 Acute gastrointestinal bleeding, suspect upper with a previous history of portal gastropathy. #2 Previous history of gastrointestinal bleeding, EGD March 2017 revealed small distal esophageal varices without stigmata of bleeding. Portal gastropathy with no evidence of bleeding. #3 History of atrial fibrillation, currently not on anticoagulants. #4 Hypertension. #5 Hyperlipidemia. #6 History of pulmonary embolism. #7 Degenerative disc disease. Plan: The patient was seen and evaluated by Dr. Harkins. He is currently stable from the pulmonary and critical care standpoint. He remains on Sandostatin IV. Will await further direction from GI services. Once this is discontinued the patient could be transferred out of the intensive care unit. Continue to monitor hemoglobins. Continue to observe for signs of GI bleed. We will continue to follow and make further recommendations based on his clinical status. I, the cosigning physician, performed a history & physical examination of the patient. Lungs sounds are clear. Maintaining good O2 saturations in the 90s on room air. I discussed the assessment and plan of care with my nurse practitioner, Xuan Gresham. I attest to the above note as dictated by her. Time with Patient: Greater than 30
[2017-07-18] MEDS: SODIUM CHLORIDE 0.45% 1,000 ML IV SCH (12:01)
[2017-07-18 12:06] LABS: Glucose,Whole Blood 159 mg/dL (75-99)
--- NOTE | 2017-07-18 12:07 | PN ---
PROGRESS NOTE CHIEF COMPLAINT: GI bleeding and anemia. HISTORY OF PRESENT ILLNESS: This gentleman has been fairly stable over the last 24 hours and apparently has not had any further bleeding. He may be moved out of the unit today. PHYSICAL EXAM: Vital signs are normal. He is awake and alert. Color is good. Chest is clear. Cardiac exam is normal and the abdomen is slightly distended. This may be the development of ascites. IMPRESSION: 1. GI blood loss. 2. Blood loss anemia. 3. Alcoholism. PLAN: Probably moved to regular floor today. MMODL / IJN: [id number] /
[2017-07-18] MEDS ORDERED: OCTREOTIDE 50 MCG in SODIUM CHLORIDE 0.9% 50 ML IVPB SCH (16:00)
[2017-07-18 17:13] LABS: Glucose,Whole Blood 94 mg/dL (75-99)
[2017-07-18] MEDS: traZODone HCL 50 MG TAB PO SCH (20:23)
[2017-07-18 21:41] LABS: Glucose,Whole Blood 126 mg/dL (75-99)
[2017-07-19 07:26] LABS: Glucose,Whole Blood 107 mg/dL (75-99)
[2017-07-19] MEDS: ALBUTEROL NEBULIZED 2.5 MG/3 ML INHALATION SCH ×2 (08:27→20:23)
[2017-07-19 08:48] LABS: Anisocytosis Slight; Basophils % (A) 0 %; Eosinophils # (A) 0.2 k/uL (0-0.7); Eosinophils % (A) 4 %; HGB 7.6 gm/dL (13.0-17.5); Hypochromasia Marked; Lymphocytes # (A) 1.4 k/uL (1.0-4.8); Lymphocytes % (A) 34 %; MCH 24.5 pg (25.0-35.0); MCHC 29.2 g/dL (31.0-37.0); Mean Platelet Volume 7.2; Monocytes # (A) 0.2 k/uL (0-1.0); Monocytes % (A) 5 %; Neutrophils # (A) 2.2 k/uL (1.3-7.7); Neutrophils % (A) 55 %; Platelet Count 102 k/uL (150-450); Poikilocytosis Moderate; RBC 3.09 m/uL (4.30-5.90); RDW 18.7 % (11.5-15.5)
[2017-07-19] MEDS: INSULIN ASPART 100 UNIT/ML 1 ML 10 ML VIAL SQ SCH ×4 (08:53→20:46)
[2017-07-19 09:04] LABS: ALT 30 U/L (21-72); AST 49 U/L (17-59); Albumin 2.9 g/dL (3.5-5.0); Alkaline Phosphatase 93 U/L (38-126); Anion Gap 8 mmol/L; Blood Urea Nitrogen 9 mg/dL (9-20); Carbon Dioxide 26 mmol/L (22-30); Chloride 105 mmol/L (98-107); Glucose 100 mg/dL (74-99); Phosphorus 2.9 mg/dL (2.5-4.5); Potassium 3.2 mmol/L (3.5-5.1); Sodium 139 mmol/L (137-145); Total Bilirubin 0.6 mg/dL (0.2-1.3)
[2017-07-19] MEDS: PANTOPRAZOLE 40 MG/10 ML VIAL IV SCH ×2 (09:19→20:40)
[2017-07-19] MEDS: METOPROLOL TARTRATE 12.5 MG TAB PO SCH ×3 (09:19→20:40)
[2017-07-19] MEDS ORDERED: Potassium Replacement Protocol 1 EACH MISC MISCELLANE PRN (10:49)
[2017-07-19] MEDS: SODIUM CHLORIDE 0.45% 1,000 ML IV SCH (11:28)
[2017-07-19] MEDS: POTASSIUM CHLORIDE ER 20 MEQ TAB.ER PO SCH ×2 (11:50→12:19)
[2017-07-19 11:53] LABS: Glucose,Whole Blood 130 mg/dL (75-99)
[2017-07-19] MEDS ORDERED: LIDOCAINE 1% INJ 10MG/ML (20 ML MDV) ONE (13:58)
[2017-07-19] MEDS ORDERED: PROPOFOL 10 MG/ML 20 ML VIAL IV ONE (13:58)
[2017-07-19] MEDS ORDERED: MIDAZOLAM 2 MG/2 ML VIAL ONE (13:58)
[2017-07-19] MEDS ORDERED: IV FLUID CONTINUATION 1,000 ML IV ONE (14:04)
[2017-07-19 14:29] VITALS: BMI 28.1
--- NOTE | 2017-07-19 14:29 | PN ---
PROGRESS NOTE CHIEF COMPLAINT: Alcoholism with GI bleed and anemia. HISTORY OF PRESENT ILLNESS: This gentleman is doing fairly well and was stable and is going for endoscopy, later. PHYSICAL EXAM: He is otherwise unchanged. IMPRESSION: 1. Gastrointestinal hemorrhage. 2. Alcoholism. 3. Blood loss anemia. 4. Await results of endoscopy. MMODL / IJN: [id number] /
--- NOTE | 2017-07-19 14:37 | P.PCN ---
Date of Procedure: 07/19/17 Procedure(s) Performed: Procedure: Esophagogastroduodenoscopy Preoperative diagnosis: GI bleeding and anemia. Postoperative diagnosis: Small distal esophageal varices without stigmata of bleeding. Portal gastropathy likely cause of bleeding not actively bleeding at the time of this exam. Preparation sedation: Was provided by anesthesia. Brief clinical history: The patient is a 62-year-old male with past medical history of ETOH abuse, esophageal varices, atrial fibrillation, CVA, diabetes, hyponatremia, hypertension, PE, who was admitted several weeks ago with severe symptomatic iron deficiency anemia with dark colored stools 2 months. Iron 17/ 4.3%. Ferritin 41. Hemoglobin at that time was as low as 6.3. He underwent EGD and colonoscopy with findings of nonbleeding small distal esophageal varices and mild portal hypertensive gastropathy. Colonoscopy showed a 5 mm proximal rectal polyp and scattered sigmoid diverticulosis. Chronic liver disease workup was initiated. Discharge hemoglobin was 7.5. Patient drinks alcohol 3-4 tall cans a week. Patient was readmitted those the end of March with a hemoglobin of 6.4 and reports of epigastric discomfort, hematemesis as well as black colored bowel movements. Platelet 235. White count 4.8. INR 1.2. He was transfused 2 units of blood current hemoglobin 7.3. Received intravenous Sandostatin. Hepatitis screen nonreactive. Serologic workup for chronic liver disease unremarkable. LFTs unremarkable the exception of AST 74. Patient does not take antiplatelet or anticoagulant medications. A repeat upper endoscopy showed esophageal varices without stigmata of bleeding and portal gastropathy. This was thought to be the likely cause of bleeding in addition to possible mucosal tear that could have healed prior to the endoscopy. The patient presented to the emergency room this time with history of coffee- ground emesis and dark bowel movement. He has been drinking alcohol. His hemoglobin was around 7.5. He was started on Sandostatin and was monitored closely. He did not have any further bleeding and his hemoglobin remained fairly stable. This evaluation is to assess for a source of upper GI bleeding and possible intervention. The details are summarized in the history and physical and dictated consultation and progress notes. Procedure: With the patient on his left lateral decubitus position and after informed consent and adequate sedation, I passed the Olympus-GIF 160 video upper endoscope through the cricopharyngeus down the esophagus. GE junction was around 40-41 cm from the incisors. There was small distal esophageal varices without stigmata of bleeding as previously described. No esophagitis or complicated reflux disease. No mucosal tears. The endoscope was then passed into the stomach which was insufflated with air and inspected in detail including the retroflex view in the cardia. There was diffuse mottling and erythema and areas of friability consistent with gastropathy but there were no gastric varices, ulcers erosions or bleeding. Channel, duodenal bulb, post bulbar area and descending duodenum appeared within normal limits. All secretions in the stomach where bilious in color. No biopsies were indicated then the endoscope was withdrawn. The patient tolerated the procedure well. Plan: The patient was reassured. Will allow diet as tolerated was educated again about needs to abstain from drinking alcohol totally. Further plans can be made based on his course.
--- NOTE | 2017-07-19 16:16 | P.PN ---
<Aline Collins M - Last Filed: 07/19/17 16:09> Subjective Progress Note Date: 07/19/17 Principal diagnosis: Acute GI bleeding This is a very pleasant 62-year-old gentleman who has a history of atrial fibrillation not on anticoagulation, CVA/TIA, diabetes mellitus, gastroesophageal reflux disease, previous GI bleed, hyperlipidemia, hypertension , pulmonary embolism. He had previously been admitted here in March 2017 for a GI bleed and EGD at that time revealed a small distal esophageal varices without stigmata of bleeding, portal gastropathy and no evidence of ulcers or bleeding. He presented here to the emergency room for significant weakness and lightheadedness and nearly passing out. He was having coffee-ground emesis and dark tarry stools. He was found to have a hemoglobin of 5.4. He is now status post 3 units of packed red blood cells. Current hemoglobin 8.0. No further bleeding in the last 24 hours. He is currently on Sandostatin at 50 g IV push every 8 hours. Protonix 40 mg IV twice a day. He is seen today in consultation in the intensive care unit. He did not require any pressor support. He is awake and alert in no acute distress. He denies any worsening shortness of breath, cough or congestion. No chills or night sweats. No abdominal discomfort. No active bleeding the past 24 hours. On 07/19/2017 patient seen on medical surgical floor, following EGD by Dr. Olivas. There was a small distal esophageal varices without stigmata of bleeding. Portal gastropathy was thought to be likely cause of bleeding, and it is not actively bleeding at the time of scope. Patient is hemodynamically stable, he states he hasn't had any episodes of GI bleeding since yesterday. He states his last BM was more brown in color, although remains dark in color. Today's lab work shows hemoglobin is 7.6, serum potassium is 3.2, 's renal profile is within normal limits. He has received a total of 3 units of packed red blood cells during this admission. Otherwise he denies any acute distress, denies any chest pain, or shortness of breath. On room air, with O2 sat 99%. Denies any respiratory complaints. Objective - Vital Signs Vital signs: Vital Signs Temp 96.5 F L 07/19/17 15:00 Pulse 88 07/19/17 15:00 Resp 16 07/19/17 15:00 BP 117/74 07/19/17 15:00 Pulse Ox 99 07/19/17 15:00 Intake & Output 07/18/17 07/19/17 07/19/17 18:59 06:59 18:59 Intake Total 1480 0 580 Output Total 2650 Balance -1170 0 580 Weight 76.7 kg Intake: IV 40 100 Sodium Chloride 0.45% 1, 40 000 ml @ 75 mls/hr IV . [id number] [facility] Rx#:[id number] Intake, IV Titration 220 Amount Magnesium Sulfate-D5w Pmx 200 1 gm In Dextrose/Water 1 100ml.bag @ 100 mls/hr IVPB Q1H [facility] Rx#: [id number] Sodium Chloride 0.45% 1, 20 000 ml @ 20 mls/hr IV . Q24H [facility] Rx#:[id number] Oral 1220 0 480 Output: Urine 2650 Other: Voiding Method Toilet Toilet Urinal Urinal # Voids 4 1 3 - Exam GENERAL EXAM: Alert, pleasant, 62-year-old white male, comfortable in no apparent distress. HEAD: Normocephalic/atraumatic. EYES: Normal reaction of pupils, equal size. Conjunctiva pink, sclera white. NOSE: Clear with pink turbinates. THROAT: No erythema or exudates. NECK: No masses, no JVD, no thyroid enlargement, no adenopathy. CHEST: No chest wall deformity. Symmetrical expansion. LUNGS: Equal air entry with no crackles, wheeze, rhonchi or dullness. CVS: Regular rate and rhythm, normal S1 and S2, no gallops, no murmurs, no rubs ABDOMEN: Soft, nontender. No hepatosplenomegaly, normal bowel sounds, no guarding or rigidity. EXTREMITIES: No clubbing, no edema, no cyanosis, 2+ pulses and upper and lower extremities. MUSCULOSKELETAL: Muscle strength and tone normal. SPINE: No scoliosis or deformity SKIN: No rashes CENTRAL NERVOUS SYSTEM: Alert and oriented -3. No focal deficits, tone is normal in all 4 extremities. PSYCHIATRIC: Alert and oriented -3. Appropriate affect. Intact judgment and insight. - Labs CBC & Chem 7: 07/19/17 07:35 07/19/17 07:35 Labs: Abnormal Lab Results - Last 24 Hours (Table) 07/16/17 07/18/17 07/19/17 Range/Units 11:07 20:57 07:23 RBC (4.30-5.90) m/uL Hgb (13.0-17.5) gm/dL Hct (39.0-53.0) % MCH (25.0-35.0) pg MCHC (31.0-37.0) g/dL RDW (11.5-15.5) % Plt Count (150-450) k/uL Potassium (3.5-5.1) mmol/L Glucose (74-99) mg/dL POC Glucose (mg/dL) 126 H 107 H (75-99) mg/dL Calcium (8.4-10.2) mg/dL Total Protein (6.3-8.2) g/dL Albumin (3.5-5.0) g/dL Crossmatch See Detail 07/19/17 07/19/17 07/19/17 Range/Units 07:35 07:35 11:30 RBC 3.09 L (4.30-5.90) m/uL Hgb 7.6 L (13.0-17.5) gm/dL Hct 26.0 L (39.0-53.0) % MCH 24.5 L (25.0-35.0) pg MCHC 29.2 L (31.0-37.0) g/dL RDW 18.7 H (11.5-15.5) % Plt Count 102 L (150-450) k/uL Potassium 3.2 L (3.5-5.1) mmol/L Glucose 100 H (74-99) mg/dL POC Glucose (mg/dL) 130 H (75-99) mg/dL Calcium 8.0 L (8.4-10.2) mg/dL Total Protein 6.0 L (6.3-8.2) g/dL Albumin 2.9 L (3.5-5.0) g/dL Crossmatch Assessment and Plan Plan: Assessment: #1 Acute gastrointestinal bleeding, EGD from 07/19/2017 shows small distal esophageal varices without stigmata of bleeding. Portal gastropathy was likely cause of bleeding, and was not actively bleeding at the time of scope. #2 Previous history of gastrointestinal bleeding, EGD March 2017 revealed small distal esophageal varices without stigmata of bleeding. Portal gastropathy with no evidence of bleeding. #3 History of atrial fibrillation, currently not on anticoagulants. #4 Hypertension. #5 Hyperlipidemia. #6 History of pulmonary embolism. #7 Degenerative disc disease. Plan: Patient remains hemodynamically stable, no further episodes of melena today. We 'll continue monitoring for new episodes of GI bleeding. Continue IV Protonix 40 mg twice obtaining. We will follow the patient on as-needed basis. Thank you for this consultation I performed a history & physical examination of the patient and discussed their management with my nurse practitioner, Aline Collins. I reviewed the nurse practitioner's note and agree with the documented findings and plan of care. Lung sounds are clear. The findings and the impression was discussed with the patient. I attest to the documentation by the nurse practitioner. Time with Patient: Less than 30 <Mellisa Rae - Last Filed: 07/19/17 16:22> Objective - Vital Signs Vital signs: Vital Signs Temp 96.5 F L 07/19/17 15:00 Pulse 88 07/19/17 15:00 Resp 16 07/19/17 15:00 BP 117/74 07/19/17 15:00 Pulse Ox 99 07/19/17 15:00 Intake & Output 07/18/17 07/19/17 07/19/17 18:59 06:59 18:59 Intake Total 1480 0 580 Output Total 2650 Balance -1170 0 580 Weight 76.7 kg Intake: IV 40 100 Sodium Chloride 0.45% 1, 40 000 ml @ 75 mls/hr IV . [id number] [facility] Rx#:[id number] Intake, IV Titration 220 Amount Magnesium Sulfate-D5w Pmx 200 1 gm In Dextrose/Water 1 100ml.bag @ 100 mls/hr IVPB Q1H [facility] Rx#: [id number] Sodium Chloride 0.45% 1, 20 000 ml @ 20 mls/hr IV . Q24H [facility] Rx#:[id number] Oral 1220 0 480 Output: Urine 2650 Other: Voiding Method Toilet Toilet Urinal Urinal # Voids 4 1 3 - Labs CBC & Chem 7: 07/19/17 07:35 07/19/17 07:35 Labs: Abnormal Lab Results - Last 24 Hours (Table) 07/16/17 07/18/17 07/19/17 Range/Units 11:07 20:57 07:23 RBC (4.30-5.90) m/uL Hgb (13.0-17.5) gm/dL Hct (39.0-53.0) % MCH (25.0-35.0) pg MCHC (31.0-37.0) g/dL RDW (11.5-15.5) % Plt Count (150-450) k/uL Potassium (3.5-5.1) mmol/L Glucose (74-99) mg/dL POC Glucose (mg/dL) 126 H 107 H (75-99) mg/dL Calcium (8.4-10.2) mg/dL Total Protein (6.3-8.2) g/dL Albumin (3.5-5.0) g/dL Crossmatch See Detail 07/19/17 07/19/17 07/19/17 Range/Units 07:35 07:35 11:30 RBC 3.09 L (4.30-5.90) m/uL Hgb 7.6 L (13.0-17.5) gm/dL Hct 26.0 L (39.0-53.0) % MCH 24.5 L (25.0-35.0) pg MCHC 29.2 L (31.0-37.0) g/dL RDW 18.7 H (11.5-15.5) % Plt Count 102 L (150-450) k/uL Potassium 3.2 L (3.5-5.1) mmol/L Glucose 100 H (74-99) mg/dL POC Glucose (mg/dL) 130 H (75-99) mg/dL Calcium 8.0 L (8.4-10.2) mg/dL Total Protein 6.0 L (6.3-8.2) g/dL Albumin 2.9 L (3.5-5.0) g/dL Crossmatch Assessment and Plan Plan: Joint evaluation along with the nurse practitioner. Reviewed the results of the EGD. No signs of any acute bleed. Pulmonary and critical care services we' ll sign off.
[2017-07-19 17:01] LABS: Glucose,Whole Blood 174 mg/dL (75-99)
[2017-07-19 21:25] LABS: Glucose,Whole Blood 123 mg/dL (75-99)
[2017-07-19] MEDS: traZODone HCL 50 MG TAB PO SCH (22:18)
[2017-07-20 06:19] VITALS: BP 114/72; RESP 18; TEMP 97.8
[2017-07-20 07:40] LABS: Glucose,Whole Blood 108 mg/dL (75-99)
[2017-07-20] MEDS: INSULIN ASPART 100 UNIT/ML 1 ML 10 ML VIAL SQ SCH ×2 (07:42→12:33)
[2017-07-20 08:06] LABS: Anisocytosis Slight; Basophils % (A) 0 %; Eosinophils # (A) 0.1 k/uL (0-0.7); Eosinophils % (A) 3 %; HCT 24.9 % (39.0-53.0); HGB 7.4 gm/dL (13.0-17.5); Hypochromasia Marked; Lymphocytes # (A) 1.2 k/uL (1.0-4.8); Lymphocytes % (A) 27 %; MCH 24.4 pg (25.0-35.0); MCHC 29.7 g/dL (31.0-37.0); MCV 82.2 fL (80.0-100.0); Mean Platelet Volume 8.5; Microcytosis Slight; Monocytes # (A) 0.3 k/uL (0-1.0); Monocytes % (A) 6 %; Neutrophils # (A) 2.7 k/uL (1.3-7.7); Neutrophils % (A) 62 %; Platelet Count 108 k/uL (150-450); Poikilocytosis Slight; RBC 3.02 m/uL (4.30-5.90); RDW 19.7 % (11.5-15.5); WBC 4.4 k/uL (3.8-10.6)
[2017-07-20] MEDS: PANTOPRAZOLE 40 MG/10 ML VIAL IV SCH (08:27)
[2017-07-20] MEDS: METOPROLOL TARTRATE 12.5 MG TAB PO SCH (08:28)
[2017-07-20 08:35] LABS: ALT 30 U/L (21-72); AST 39 U/L (17-59); Albumin 2.9 g/dL (3.5-5.0); Alkaline Phosphatase 97 U/L (38-126); Anion Gap 9 mmol/L; Blood Urea Nitrogen 11 mg/dL (9-20); Calcium 8.1 mg/dL (8.4-10.2); Carbon Dioxide 24 mmol/L (22-30); Chloride 106 mmol/L (98-107); Glucose 97 mg/dL (74-99); Phosphorus 3.7 mg/dL (2.5-4.5); Potassium 3.7 mmol/L (3.5-5.1); Sodium 139 mmol/L (137-145); Total Bilirubin 0.4 mg/dL (0.2-1.3); Total Protein 6.2 g/dL (6.3-8.2)
[2017-07-20] MEDS: ALBUTEROL NEBULIZED 2.5 MG/3 ML INHALATION SCH (09:14)
[2017-07-20 09:28] VITALS: PULSE 88
[2017-07-20 12:09] LABS: Glucose,Whole Blood 88 mg/dL (75-99)
[2017-07-20] MEDS: SODIUM CHLORIDE 0.45% 1,000 ML IV SCH (12:33)
--- NOTE | 2017-07-20 23:45 | DS ---
DISCHARGE SUMMARY CHIEF COMPLAINT: Upper GI bleed, anemia and alcoholism. HISTORY OF PRESENT ILLNESS AND PHYSICAL EXAM: Details of this man's history and physical can be found in the initial workup. LABORATORY STUDIES: While he was in a hospital, he had laboratory studies, details which can be found in the laboratory section of his chart. COURSE IN HOSPITAL: After admission, he was placed on bed rest, started on intravenous fluids and kept in ICU. He was transfused several times and eventually his hemoglobin started to stabilize. He was transferred out of the unit and gradually improved and it was felt that he could go home on the and was admonished to stop drinking, which he will not likely do. He suggests a pattern of intentionally creating bleeding problems so that he can go back into the hospital. FINAL DIAGNOSES: 1. Upper gastrointestinal hemorrhage. 2. Blood loss anemia. 3. Alcoholism. OPERATIONS: Endoscopy. CONSULTATIONS: Gastroenterology in Intensive Medicine. MMODL / MICHAEL: [id number] /
== END 2017-07-20 13:58 | disposition home or self-care (01) | DRG 378 ==
LOC: EC 10:41 → 6SEL 12:19 → 6ICU 12:40 → 4MS4W 07-18 14:19
PROVIDERS: ADMIT Family Medicine; ATTEND Family Medicine
PROC: 30233N1 Transfusion of Nonautologous Red Blood Cells into Peripheral Vein, Percutaneous Approach (ICD-10-PCS; 2017-07-16)
PROC: 0DJ08ZZ Inspection of Upper Intestinal Tract, Via Natural or Artificial Opening Endoscopic (ICD-10-PCS; principal; 2017-07-19 08:15)
DX: K92.2 Gastrointestinal hemorrhage, unspecified (principal); K76.6 Portal hypertension; I48.91 Unspecified atrial fibrillation; M41.9 Scoliosis, unspecified; D50.0 Iron deficiency anemia secondary to blood loss (chronic); G40.909 Epilepsy, unspecified, not intractable, without status epilepticus; E11.9 Type 2 diabetes mellitus without complications; D62 Acute posthemorrhagic anemia; I85.10 Secondary esophageal varices without bleeding; F10.20 Alcohol dependence, uncomplicated; I10 Essential (primary) hypertension; K57.30 Diverticulosis of large intestine without perforation or abscess without bleeding; J44.9 Chronic obstructive pulmonary disease, unspecified; K21.9 Gastro-esophageal reflux disease without esophagitis; K62.1 Rectal polyp; D50.9 Iron deficiency anemia, unspecified; E78.5 Hyperlipidemia, unspecified; M50.10 Cervical disc disorder with radiculopathy, unspecified cervical region; K31.89 Other diseases of stomach and duodenum; Z79.84 Long term (current) use of oral hypoglycemic drugs; Z79.899 Other long term (current) drug therapy; Z86.73 Personal history of transient ischemic attack (TIA), and cerebral infarction without residual deficits; Z86.711 Personal history of pulmonary embolism; Z90.49 Acquired absence of other specified parts of digestive tract; Z91.012 Allergy to eggs; Z88.8 Allergy status to other drugs, medicaments and biological substances; Z91.018 Allergy to other foods; Z91.048 Other nonmedicinal substance allergy status; Z86.59 Personal history of other mental and behavioral disorders
CPT/HCPCS: 36415; 43235; 80053; 81003; 82550; 82553; 83036; 83690; 83735; 84100; 84484; 85025; 85027; 85610; 85730; 86850; 86900; 86901; 86920; 87086; 93005; 94640; 94760; 96374; 96375; 99291

== ENCOUNTER 2017-07-27 10:20 | Emergency (ER) | payer OTHER ==
[2017-07-27] MEDS ORDERED: ONDANSETRON 4 MG/2 ML VIAL IVP STA (10:39)
[2017-07-27] MEDS ORDERED: RX INFO: IV CONTRAST WAS GIVEN 1 EACH MISC MISCELLANE PRN (10:39)
[2017-07-27] MEDS ORDERED: SODIUM CHLORIDE 0.9% 500 ML IV STA (10:39)
[2017-07-27] MEDS ORDERED: PANTOPRAZOLE 40 MG/10 ML VIAL IVP STA (10:39)
[2017-07-27] MEDS ORDERED: SODIUM CHLORIDE 0.9% 1,000 ML IV STA (10:39)
--- NOTE | 2017-07-27 12:12 | ED ---
Abdominal Pain HPI - General Chief Complaint: Abdominal Pain Stated Complaint: Abd Pain Time Seen by Provider: 07/27/17 10:34 Source: patient Mode of arrival: EMS Limitations: no limitations - History of Present Illness Initial Comments: This 62-year-old white male presents with a complaint of some bilateral lower abdominal cramping/abdominal pain. He feels like he is bloated. Onset came on this morning. He's had some nausea and dry heaving. He states that he had some diarrhea yesterday. He has not had any bowel movement today. He states that he feels somewhat constipated. He denies any blood in his stool or black tarry stools. He does have a history of previous GI bleeding and was here about a month ago for similar. He does have a history of abuse but states that he has not drank any alcohol since last hospitalization. He denies any fevers or chills. No other complaints or modifying factors. - Related Data Home Medications Medication Instructions Recorded Confirmed Albuterol Nebulized [Ventolin 2.5 mg INHALATION RT-Q4H PRN 06/15/17 07/27/17 Nebulized] Previous Rx's Medication Instructions Recorded amLODIPine BESYLATE [Norvasc] 10 mg PO DAILY #30 tablet 09/02/16 Propranolol [Inderal] 10 mg PO TID #90 tab 04/15/17 Pantoprazole [Protonix] 40 mg PO DAILY #30 tablet. 04/27/17 Dicyclomine [Bentyl] 20 mg PO QID PRN #20 tablet 07/27/17 Ondansetron [Zofran ODT] 8 mg PO Q8HR PRN #12 tab 07/27/17 Allergies Allergy/AdvReac Type Severity Reaction Status Date / Time adhesive tape Allergy Rash/Hives Verified 07/27/17 11:28 egg AdvReac Nausea & Verified 07/27/17 11:28 Vomiting lisinopril AdvReac EYES Verified 07/27/17 11:28 BURN&ITCH/WEAKNESS tomato AdvReac Nausea & Verified 07/27/17 11:28 Vomiting & Diarrhea Review of Systems ROS Statement: Those systems with pertinent positive or pertinent negative responses have been documented in the HPI. ROS Other: All systems not noted in ROS Statement are negative. Past Medical History Past Medical History: Atrial Fibrillation, Chest Pain / Angina, COPD, CVA/TIA, Diabetes Mellitus, GERD/Reflux, GI Bleed, Hyperlipidemia, Hypertension, Pulmonary Embolus (PE) Additional Past Medical History / Comment(s): Upper and lower GI bleeds/anemia, esophageal varicies/diverticulosis, bilateral ankle edema at times, 2016 bacterial septicemia, TIA, NIDDM type II, 2012, cervical disc disease with neck pain goes into R arm, DDD low back goes into R leg, scoliosis, epilepsy when a child, alcoholic hasn't drank since ffeb 2017 History of Any Multi-Drug Resistant Organisms: None Reported Past Surgical History: Appendectomy, Cholecystectomy Additional Past Surgical History / Comment(s): 03/21/17 EGD/colonoscopy, other colonoscopies. Past Anesthesia/Blood Transfusion Reactions: Previous Problems w/ Anesthesia Additional Past Anesthesia/Blood Transfusion Reaction / Comment(s): after appendix removed sob Past Psychological History: Anxiety, Depression Smoking Status: Never smoker Past Alcohol Use History: Occasional Past Drug Use History: None Reported - Past Family History Mother Family Medical History: COPD, CVA/TIA, Dementia Additional Family Medical History / Comment(s): from a stroke Father Family Medical History: Pneumonia Additional Family Medical History / Comment(s): Father of pneumonia when he was close to 80 yrs old. General Exam - General Exam Comments Initial Comments: GENERAL: The patient is well nourished and well hydrated. VITAL SIGNS: Heart rate, blood pressure, respiratory rate reviewed as recorded in nurse's notes. EYES: Pupils are round and reactive. Extraocular movements are intact. No conjunctival / lid redness or swelling. ENT: No external evidence of injury, swelling, or ecchymosis. Airway is patent. Throat is clear. NECK: Nontender. No swelling or evidence of injury. No subcutaneous emphysema. Trachea is midline. No thyroid mass. HEART: Regular rate and rhythm. Good peripheral pulses. LUNGS/CHEST: Breath sounds clear and equal bilaterally. No rales, rhonchi, or wheezes. No ecchymosis, subcutaneous emphysema, or tenderness. ABDOMEN: There is mild diffuse lower abdominal tenderness. No flank tenderness identified. No palpable masses or organomegaly. No peritoneal signs. No abdominal wall swelling or ecchymosis. EXTREMITIES: No extremity tenderness. Normal muscle tone and function. No thoracolumbar tenderness. NEUROLOGIC: Sensation is grossly intact. Cranial nerve exam reveals face is symmetrical, tongue is midline, speech is clear. SKIN: No abrasions or ecchymosis is noted. No induration or masses noted. PSYCHIATRIC: Alert and oriented. Appropriate behavior and judgment. Limitations: no limitations Course Vital Signs 07/27/17 10:36 Temperature 98 F Pulse Rate 92 Respiratory 18 Rate Blood Pressure 141/87 O2 Sat by Pulse 98 Oximetry Medical Decision Making - Medical Decision Making The patient was seen and examined. All diagnostics are reviewed. He does receive some IV Zofran as well as some IV fluids. He is feeling somewhat better on recheck. The computed tomography scan of the abdomen and pelvis shows evidence of liver cirrhosis and sequelae thereof. He also has some diverticulosis but no evidence of diverticulitis. No acute findings are noted. The laboratory does show an anemia with a hemoglobin of 8.5. This is compared to previous and appears to be improved. He does relate that he stopped drinking for over a month now and he is highly encouraged to stay with his abstinence. It is felt as though he may have a degree of gastroenteritis at this time it appears stable for discharge. Is counseled regarding his condition and diet therapy. Return parameters are discussed. Close follow-up is recommended. - Lab Data Result diagrams: 07/27/17 12:20 07/27/17 12:20 Lab Results 07/27/17 07/27/17 07/27/17 Range/Units 12:20 12:20 12:20 WBC 3.3 L (3.8-10.6) k/uL RBC 3.45 L (4.30-5.90) m/uL Hgb 8.5 L (13.0-17.5) gm/dL Hct 27.6 L (39.0-53.0) % MCV 79.9 L (80.0-100.0) fL MCH 24.7 L (25.0-35.0) pg MCHC 30.9 L (31.0-37.0) g/dL RDW 18.9 H (11.5-15.5) % Plt Count 219 D (150-450) k/uL Neutrophils % 51 % Lymphocytes % 35 % Monocytes % 10 % Eosinophils % 2 % Basophils % 0 % Neutrophils # 1.7 (1.3-7.7) k/uL Lymphocytes # 1.2 (1.0-4.8) k/uL Monocytes # 0.3 (0-1.0) k/uL Eosinophils # 0.1 (0-0.7) k/uL Basophils # 0.0 (0-0.2) k/uL Manual Slide Review Performed Toxic Granulation Present Hypochromasia Marked Poikilocytosis Moderate Anisocytosis Slight Microcytosis Slight Sodium 143 (137-145) mmol/L Potassium 3.7 (3.5-5.1) mmol/L Chloride 106 (98-107) mmol/L Carbon Dioxide 27 (22-30) mmol/L Anion Gap 10 mmol/L BUN 8 L (9-20) mg/dL Creatinine 0.70 (0.66-1.25) mg/dL Est GFR (CKD-EPI)AfAm >90 (>60 ml/min/1.73 sqM) Est GFR (CKD-EPI)NonAf >90 (>60 ml/min/1.73 sqM) Glucose 109 H (74-99) mg/dL Calcium 8.6 (8.4-10.2) mg/dL Total Bilirubin 0.4 (0.2-1.3) mg/dL AST 58 (17-59) U/L ALT 33 (21-72) U/L Alkaline Phosphatase 93 (38-126) U/L Total Protein 7.1 (6.3-8.2) g/dL Albumin 3.4 L (3.5-5.0) g/dL Amylase 84 (30-110) U/L Lipase 169 (23-300) U/L Urine Color Light Yellow Urine Appearance Clear (Clear) Urine pH 7.5 (5.0-8.0) Ur Specific [place] 1.010 (1.001-1.035) Urine Protein Negative (Negative) Urine Glucose (UA) Negative (Negative) Urine Ketones Negative (Negative) Urine Blood Negative (Negative) Urine Nitrite Negative (Negative) Urine Bilirubin Negative (Negative) Urine Urobilinogen <2.0 (<2.0) mg/dL Ur Leukocyte Esterase Negative (Negative) Disposition Clinical Impression: Nausea and vomiting, Abdominal pain, Hypertension, Diarrhea, Gastroenteritis, Anemia Disposition: HOME SELF-CARE Condition: Good Instructions: Abdominal Pain (ED), Gastroenteritis (ED), Anemia (ED), Hypertension (ED) Prescriptions: Dicyclomine [Bentyl] 20 mg PO QID PRN #20 tablet PRN Reason: Pain Ondansetron [Zofran ODT] 8 mg PO Q8HR PRN #12 tab PRN Reason: Nausea Referrals: Doug Beck MD [Primary Care Provider] - 1-2 days
[2017-07-27 12:53] LABS: ALT 33 U/L (21-72); AST 58 U/L (17-59); Albumin 3.4 g/dL (3.5-5.0); Alkaline Phosphatase 93 U/L (38-126); Amylase 84 U/L (30-110); Anion Gap 10 mmol/L; Blood Urea Nitrogen 8 mg/dL (9-20); Calcium 8.6 mg/dL (8.4-10.2); Carbon Dioxide 27 mmol/L (22-30); Chloride 106 mmol/L (98-107); Glucose 109 mg/dL (74-99); Lipase 169 U/L (23-300); Potassium 3.7 mmol/L (3.5-5.1); Sodium 143 mmol/L (137-145); Total Bilirubin 0.4 mg/dL (0.2-1.3); Total Protein 7.1 g/dL (6.3-8.2)
[2017-07-27 12:57] LABS: Appearance,Urine Clear (Clear); Bilirubin,Urine Negative (Negative); Blood,Urine Negative (Negative); Color,Urine Light Yellow; Glucose,Urine (UA) Negative (Negative); Ketones,Urine Negative (Negative); Leukocyte Esterase,Urine Negative (Negative); Nitrite,Urine Negative (Negative); PH, Urine 7.5 (5.0-8.0); Protein,Urine Negative (Negative); Urobilinogen,Urine <2.0 mg/dL (<2.0)
[2017-07-27 13:02] LABS: Anisocytosis Slight; Basophils % (A) 0 %; Eosinophils # (A) 0.1 k/uL (0-0.7); Eosinophils % (A) 2 %; HCT 27.6 % (39.0-53.0); HGB 8.5 gm/dL (13.0-17.5); Hypochromasia Marked; Lymphocytes # (A) 1.2 k/uL (1.0-4.8); Lymphocytes % (A) 35 %; MCH 24.7 pg (25.0-35.0); MCHC 30.9 g/dL (31.0-37.0); MCV 79.9 fL (80.0-100.0); Mean Platelet Volume 8.1; Microcytosis Slight; Monocytes # (A) 0.3 k/uL (0-1.0); Monocytes % (A) 10 %; Neutrophils # (A) 1.7 k/uL (1.3-7.7); Neutrophils % (A) 51 %; Poikilocytosis Moderate; RBC 3.45 m/uL (4.30-5.90); RDW 18.9 % (11.5-15.5); WBC 3.3 k/uL (3.8-10.6)
[2017-07-27 13:08] LABS: Platelet Count 219 k/uL (150-450)
--- NOTE | 2017-07-27 13:45 | CT ---
EXAMINATION TYPE: CT abdomen pelvis w con DATE OF EXAM: 07/27/2017 COMPARISON: April 23, 2017 HISTORY: Abdominal pain CT DLP: 1347 mGycm CONTRAST: CT scan of the abdomen and pelvis is performed without Oral Contrast and with IV Contrast, patient in jected with 100 ml mL of Omnipaque 300. FINDINGS: LUNG BASES-: No visible nodule. No infiltrate. LIVER/GB: O cystectomy clips are in place. Nodular hepatic contour compatible with cirrhotic liver disease. Subcentimeter hypoattenuating lesion in the spleen are indeterminant may reflect cysts. Con chyron operator ultrasound correlation. No space occupying hepatic lesion. Biliary tree is of normal caliber. PANCREAS: No inflammation. No distinct mass. SPLEEN: No splenic enlargement. No lesion seen. Splenic granulomas. ADRENALS: No nodule. No thickening. KIDNEYS/BLADDER: No hydronephrosis. No nephrolithiasis. No distinct renal mass. Urinary bladder g rossly unremarkable. BOWEL: The appendix is surgically absent. Normal bowel caliber. No inflammation. Sigmoid diverticul osis without diverticulitis. Small sliding-type hiatal hernia. Distention urinary bladder. GENITAL ORGANS: No gross abnormality. LYMPH NODES: No greater than 1cm abdominal or pelvic lymph nodes are appreciated. AORTA: No significant abnormality. OSSEOUS STRUCTURES: No significant abnormality is seen. OTHER: No significant additional abnormality is seen. IMPRESSION: 1. Findings are felt to reflect cirrhotic liver disease. 2. Probable hepatic cysts which can be confirmed with ultrasound. 3. Portal venous hypertension difficult to exclude. 4. Remote granulomatous disease. #5 diverticulosis without diverticulitis.
[2017-07-27 13:52] LABS: Toxic Granulation Present
[2017-07-27 14:11] VITALS: BP 158/85; PULSE 88; RESP 16; TEMP 98.8
== END 2017-07-27 14:36 | disposition home or self-care (01) ==
LOC: EC 10:20
DX: K52.9 Noninfective gastroenteritis and colitis, unspecified (principal); I10 Essential (primary) hypertension; D64.9 Anemia, unspecified; K74.60 Unspecified cirrhosis of liver; K57.90 Diverticulosis of intestine, part unspecified, without perforation or abscess without bleeding; Z88.8 Allergy status to other drugs, medicaments and biological substances; Z91.012 Allergy to eggs; Z91.018 Allergy to other foods; Z91.09 Other allergy status, other than to drugs and biological substances; Z90.49 Acquired absence of other specified parts of digestive tract
CPT/HCPCS: 36415; 80053; 82150; 83690; 85025; 81003; 74177; 99284; 96374; 96375; 96361 ×2; J2405; Q9967; C9113

== ENCOUNTER 2017-08-24 05:03 | Inpatient (IN) | payer OTHER ==
[2017-08-24] MEDS ORDERED: RX INFO: IV CONTRAST WAS GIVEN 1 EACH MISC MISCELLANE PRN (05:23)
[2017-08-24] MEDS ORDERED: ONDANSETRON 4 MG/2 ML VIAL IVP STA (05:23)
[2017-08-24] MEDS ORDERED: SODIUM CHLORIDE 0.9% 1,000 ML IV STA (05:23)
[2017-08-24] MEDS ORDERED: FAMOTIDINE 20 MG/2 ML VIAL IV STA (05:24)
--- NOTE | 2017-08-24 05:26 | ED ---
General Adult HPI - General Chief complaint: Abdominal Pain Stated complaint: Abdominal Pain Time Seen by Provider: 08/24/17 05:20 Source: patient, EMS, RN notes reviewed Mode of arrival: EMS Limitations: no limitations - History of Present Illness Initial comments: Patient is a pleasant 62-year-old male presenting to the emergency Department with abdominal discomfort. Onset was around 24 hours ago. Patient has nausea and dry heaves. Patient has had also had 5 or 6 episodes of diarrhea. Discomfort is more upper abdomen. Patient does have some mild sharp left-sided chest discomfort. Chest discomfort is a chronic problem for the patient and he states he gets this a couple times a week for years. No dyspnea. No diaphoresis. Patient does admit to drinking occasional alcohol. - Related Data Home Medications Medication Instructions Recorded Confirmed Albuterol Nebulized [Ventolin 2.5 mg INHALATION RT-Q4H PRN 06/15/17 07/27/17 Nebulized] Previous Rx's Medication Instructions Recorded amLODIPine BESYLATE [Norvasc] 10 mg PO DAILY #30 tablet 09/02/16 Propranolol [Inderal] 10 mg PO TID #90 tab 04/15/17 Pantoprazole [Protonix] 40 mg PO DAILY #30 tablet. 04/27/17 Dicyclomine [Bentyl] 20 mg PO QID PRN #20 tablet 07/27/17 Ondansetron [Zofran ODT] 8 mg PO Q8HR PRN #12 tab 07/27/17 Allergies Allergy/AdvReac Type Severity Reaction Status Date / Time adhesive tape Allergy Rash/Hives Verified 08/24/17 05:09 egg AdvReac Nausea & Verified 08/24/17 05:09 Vomiting lisinopril AdvReac EYES Verified 08/24/17 05:09 BURN&ITCH/WEAKNESS tomato AdvReac Nausea & Verified 08/24/17 05:09 Vomiting & Diarrhea Review of Systems ROS Statement: Those systems with pertinent positive or pertinent negative responses have been documented in the HPI. ROS Other: All systems not noted in ROS Statement are negative. Constitutional: Denies: fever Eyes: Denies: eye pain ENT: Denies: ear pain Respiratory: Denies: cough, dyspnea Cardiovascular: Reports: chest pain Endocrine: Denies: fatigue Gastrointestinal: Reports: abdominal pain, nausea, diarrhea. Denies: vomiting Genitourinary: Denies: dysuria Musculoskeletal: Denies: back pain Skin: Denies: rash Neurological: Denies: weakness Past Medical History Past Medical History: Atrial Fibrillation, Chest Pain / Angina, COPD, CVA/TIA, Diabetes Mellitus, GERD/Reflux, GI Bleed, Hyperlipidemia, Hypertension, Pulmonary Embolus (PE) Additional Past Medical History / Comment(s): Upper and lower GI bleeds/anemia, esophageal varicies/diverticulosis, bilateral ankle edema at times, 2016 bacterial septicemia, TIA, NIDDM type II, 2012, cervical disc disease with neck pain goes into R arm, DDD low back goes into R leg, scoliosis, epilepsy when a child, alcoholic hasn't drank since ffeb 2017 History of Any Multi-Drug Resistant Organisms: None Reported Past Surgical History: Appendectomy, Cholecystectomy Additional Past Surgical History / Comment(s): 03/21/17 EGD/colonoscopy, other colonoscopies. Past Anesthesia/Blood Transfusion Reactions: Previous Problems w/ Anesthesia Additional Past Anesthesia/Blood Transfusion Reaction / Comment(s): after appendix removed sob Past Psychological History: Anxiety, Depression Smoking Status: Never smoker Past Alcohol Use History: Occasional Past Drug Use History: None Reported - Past Family History Mother Family Medical History: COPD, CVA/TIA, Dementia Additional Family Medical History / Comment(s): from a stroke Father Family Medical History: Pneumonia Additional Family Medical History / Comment(s): Father of pneumonia when he was close to 80 yrs old. General Exam Limitations: no limitations General appearance: alert, in no apparent distress Head exam: Present: atraumatic Eye exam: Present: normal appearance, PERRL ENT exam: Present: normal oropharynx Neck exam: Present: normal inspection Respiratory exam: Present: normal lung sounds bilaterally. Absent: chest wall tenderness Cardiovascular Exam: Present: tachycardia Expanded Peripheral pulses: 2+: Radial (R), Radial (L), Posterior Tibialis (R), Posterior Tibialis (L) GI/Abdominal exam: Present: soft. Absent: distended, tenderness Extremities exam: Present: normal inspection. Absent: pedal edema, calf tenderness Neurological exam: Present: alert Psychiatric exam: Present: normal affect, normal mood Skin exam: Present: normal color Course Vital Signs 08/24/17 08/24/17 08/24/17 05:07 05:35 06:32 Temperature 97.3 F L 97.8 F Pulse Rate 120 H 124 H 123 H Respiratory 18 18 18 Rate Blood Pressure 155/87 133/77 146/78 O2 Sat by Pulse 95 96 95 Oximetry EKG Findings - EKG Comments: EKG Findings:: Sinus tachycardia 116. DE 156. QRS 70. QT 338. QTC 469. Normal axis. LVH criteria. No acute ST change. Medical Decision Making - Medical Decision Making Patient reevaluated and updated. Case discussed with practitioner Mitul, who will admit for [facility]. - Lab Data Result diagrams: 08/24/17 05:14 08/24/17 05:14 Lab Results 08/24/17 08/24/17 08/24/17 Range/Units 05:14 05:14 05:14 WBC 4.8 (3.8-10.6) k/uL RBC 3.79 L (4.30-5.90) m/uL Hgb 9.1 L (13.0-17.5) gm/dL Hct 29.4 L (39.0-53.0) % MCV 77.5 L (80.0-100.0) fL MCH 23.9 L (25.0-35.0) pg MCHC 30.9 L (31.0-37.0) g/dL RDW 19.2 H (11.5-15.5) % Plt Count 150 (150-450) k/uL Neutrophils % 45 % Lymphocytes % 47 % Monocytes % 6 % Eosinophils % 1 % Basophils % 0 % Neutrophils # 2.2 (1.3-7.7) k/uL Lymphocytes # 2.2 (1.0-4.8) k/uL Monocytes # 0.3 (0-1.0) k/uL Eosinophils # 0.0 (0-0.7) k/uL Basophils # 0.0 (0-0.2) k/uL Hypochromasia Marked Poikilocytosis Slight Anisocytosis Slight Microcytosis Moderate PT (9.0-12.0) sec INR (<1.2) APTT (22.0-30.0) sec Sodium 148 H (137-145) mmol/L Potassium 5.8 H (3.5-5.1) mmol/L Chloride 105 (98-107) mmol/L Carbon Dioxide 24 (22-30) mmol/L Anion Gap 19 mmol/L BUN 14 (9-20) mg/dL Creatinine 0.80 (0.66-1.25) mg/dL Est GFR (CKD-EPI)AfAm >90 (>60 ml/min/1.73 sqM) Est GFR (CKD-EPI)NonAf >90 (>60 ml/min/1.73 sqM) Glucose 120 H (74-99) mg/dL Calcium 8.6 (8.4-10.2) mg/dL Total Bilirubin 1.2 (0.2-1.3) mg/dL AST 122 H (17-59) U/L ALT 31 (21-72) U/L Alkaline Phosphatase 104 (38-126) U/L Total Creatine Kinase 190 H (55-170) U/L CK-MB (CK-2) 0.5 (0.0-2.4) ng/mL CK-MB (CK-2) Rel Index 0.3 Troponin I <0.012 (0.000-0.034) ng/mL Total Protein 8.5 H (6.3-8.2) g/dL Albumin 4.3 (3.5-5.0) g/dL Amylase 137 H (30-110) U/L Lipase 159 (23-300) U/L Urine Color Urine Appearance (Clear) Urine pH (5.0-8.0) Urine Protein (Negative) Urine Glucose (UA) (Negative) Urine Ketones (Negative) Urine Blood (Negative) Urine Nitrite (Negative) Urine Bilirubin (Negative) Urine Urobilinogen (<2.0) mg/dL Ur Leukocyte Esterase (Negative) Serum Alcohol 291 mg/dL 08/24/17 08/24/17 Range/Units 05:14 07:20 WBC (3.8-10.6) k/uL RBC (4.30-5.90) m/uL Hgb (13.0-17.5) gm/dL Hct (39.0-53.0) % MCV (80.0-100.0) fL MCH (25.0-35.0) pg MCHC (31.0-37.0) g/dL RDW (11.5-15.5) % Plt Count (150-450) k/uL Neutrophils % % Lymphocytes % % Monocytes % % Eosinophils % % Basophils % % Neutrophils # (1.3-7.7) k/uL Lymphocytes # (1.0-4.8) k/uL Monocytes # (0-1.0) k/uL Eosinophils # (0-0.7) k/uL Basophils # (0-0.2) k/uL Hypochromasia Poikilocytosis Anisocytosis Microcytosis PT 12.4 H (9.0-12.0) sec INR 1.3 H (<1.2) APTT 25.5 (22.0-30.0) sec Sodium (137-145) mmol/L Potassium (3.5-5.1) mmol/L Chloride (98-107) mmol/L Carbon Dioxide (22-30) mmol/L Anion Gap mmol/L BUN (9-20) mg/dL Creatinine (0.66-1.25) mg/dL Est GFR (CKD-EPI)AfAm (>60 ml/min/1.73 sqM) Est GFR (CKD-EPI)NonAf (>60 ml/min/1.73 sqM) Glucose (74-99) mg/dL Calcium (8.4-10.2) mg/dL Total Bilirubin (0.2-1.3) mg/dL AST (17-59) U/L ALT (21-72) U/L Alkaline Phosphatase (38-126) U/L Total Creatine Kinase (55-170) U/L CK-MB (CK-2) (0.0-2.4) ng/mL CK-MB (CK-2) Rel Index Troponin I (0.000-0.034) ng/mL Total Protein (6.3-8.2) g/dL Albumin (3.5-5.0) g/dL Amylase (30-110) U/L Lipase (23-300) U/L Urine Color Light Yellow Urine Appearance Clear (Clear) Urine pH 5.5 (5.0-8.0) Urine Protein Trace H (Negative) Urine Glucose (UA) Negative (Negative) Urine Ketones 1+ H (Negative) Urine Blood Negative (Negative) Urine Nitrite Negative (Negative) Urine Bilirubin Negative (Negative) Urine Urobilinogen <2.0 (<2.0) mg/dL Ur Leukocyte Esterase Negative (Negative) Serum Alcohol mg/dL - Radiology Data Radiology results: report reviewed (Computed tomography scan of the abdomen pelvis shows minimal prominence descending and sigmoid colon.), image reviewed ( Chest x-ray shows atelectasis. No significant change.) Disposition Clinical Impression: Abdominal pain, Chest pain, Alcohol intoxication Disposition: ADMITTED IP TO THIS HOSP Referrals: [facility],Clinic [Primary Care Provider] - 1-2 days Decision Time: 07:48
[2017-08-24 05:41] LABS: Anisocytosis Slight; Basophils % (A) 0 %; Eosinophils % (A) 1 %; HCT 29.4 % (39.0-53.0); HGB 9.1 gm/dL (13.0-17.5); Hypochromasia Marked; Lymphocytes # (A) 2.2 k/uL (1.0-4.8); Lymphocytes % (A) 47 %; MCH 23.9 pg (25.0-35.0); MCHC 30.9 g/dL (31.0-37.0); MCV 77.5 fL (80.0-100.0); Mean Platelet Volume 8.3; Microcytosis Moderate; Monocytes # (A) 0.3 k/uL (0-1.0); Monocytes % (A) 6 %; Neutrophils # (A) 2.2 k/uL (1.3-7.7); Neutrophils % (A) 45 %; Platelet Count 150 k/uL (150-450); Poikilocytosis Slight; RBC 3.79 m/uL (4.30-5.90); RDW 19.2 % (11.5-15.5); WBC 4.8 k/uL (3.8-10.6)
[2017-08-24 05:50] LABS: ALT 31 U/L (21-72); AST 122 U/L (17-59); Albumin 4.3 g/dL (3.5-5.0); Alkaline Phosphatase 104 U/L (38-126); Amylase 137 U/L (30-110); Anion Gap 19 mmol/L; Blood Urea Nitrogen 14 mg/dL (9-20); Calcium 8.6 mg/dL (8.4-10.2); Carbon Dioxide 24 mmol/L (22-30); Chloride 105 mmol/L (98-107); Glucose 120 mg/dL (74-99); Lipase 159 U/L (23-300); Potassium 5.8 mmol/L (3.5-5.1); Sodium 148 mmol/L (137-145); Total Bilirubin 1.2 mg/dL (0.2-1.3); Total Protein 8.5 g/dL (6.3-8.2)
[2017-08-24 05:52] LABS: Alcohol 291 mg/dL
[2017-08-24 06:11] LABS: INR 1.3 (<1.2); Partial Thromboplastin Time 25.5 sec (22.0-30.0); Prothrombin Time 12.4 sec (9.0-12.0)
[2017-08-24 06:26] LABS: Creatine Kinase 190 U/L (55-170)
--- NOTE | 2017-08-24 06:28 | XR ---
EXAM: XR Chest, 1 View CLINICAL HISTORY: XR Reason: abdominal pain TECHNIQUE: Frontal view of the chest. COMPARISON: 06/02/2017; 05/16/2017 FINDINGS: Lungs: Presumed calcified granuloma left midlung zone is noted on previous examinations. Asymmetric expansion of the lungs with mild shift of the cardiac mediastinal structures to the left is again noted. Minimal subsegmental changes left base overlying the cardiac silhouette remain. Pleural space: Unremarkable. No pneumothorax. Heart: Cardiac silhouette is accentuated by portable technique. Mediastinum: See above. Bones/joints: Unremarkable. Upper abdomen: No definite pneumoperitoneum on this portable examination. IMPRESSION: Minimal left basilar subsegmental atelectasis or consolidation. Otherwise no significant interval change from previous exams.
[2017-08-24 06:39] LABS: Creatine Kinase MB 0.5 ng/mL (0.0-2.4); Troponin I <0.012 ng/mL (0.000-0.034)
--- NOTE | 2017-08-24 07:08 | CT ---
EXAM: CT Abdomen and Pelvis With Intravenous Contrast CLINICAL HISTORY: CT Reason: abdominal pain TECHNIQUE: Axial computed tomography images of the abdomen and pelvis with intravenous contrast. DLP is 651.7 mGy-cm. This CT exam was performed using one or more of the following dose reduction techniques: automated exposure control, adjustment of the mA and/or kV according to patient size, and/or use of iterative reconstruction technique. Coronal and sagittal reformatted images were created and reviewed. COMPARISON: No relevant prior studies available. FINDINGS: Lung bases: Unremarkable. No mass. No consolidation. Mediastinum: Hiatal hernia. ABDOMEN: Liver: Previously described findings consistent with cirrhosis are stable. Subcentimeter hypodensities, similar. Gallbladder and bile ducts: Status post cholecystectomy. No ductal dilation. Pancreas: Unremarkable. No mass. No ductal dilation. Spleen: Punctate calcification in the spleen is stable from previous exam consistent with prior granulomatous disease. Adrenals: Unremarkable. No mass. Kidneys and ureters: Unremarkable. No solid mass. No hydronephrosis. Stomach and bowel: There is minimal mucosal prominence of the descending and sigmoid colon. Sigmoid diverticulosis again noted. No obstruction. Appendix: The appendix is not identified consistent with reported history of surgical resection. PELVIS: Bladder: Unremarkable. No mass. Reproductive: Unremarkable as visualized. ABDOMEN and PELVIS: Intraperitoneal space: Unremarkable. No free air. No significant fluid collection. Bones/joints: No acute fracture. No dislocation. Soft tissues: Unremarkable. Vasculature: Unremarkable. No abdominal aortic aneurysm. Lymph nodes: Unremarkable. No enlarged lymph nodes. IMPRESSION: There is minimal mucosal prominence of the descending and sigmoid colon. This is presumed related to incomplete distention. Subtle colitis is difficult to exclude on this exam. Please correlate clinically. No bowel obstruction or free fluid. Findings consistent with cirrhosis. Questionable subcentimeter cysts again noted. Previous recommendations remain.
[2017-08-24 07:45] LABS: Appearance,Urine Clear (Clear); Bilirubin,Urine Negative (Negative); Blood,Urine Negative (Negative); Color,Urine Light Yellow; Glucose,Urine (UA) Negative (Negative); Ketones,Urine 1+ (Negative); Leukocyte Esterase,Urine Negative (Negative); Nitrite,Urine Negative (Negative); PH, Urine 5.5 (5.0-8.0); Protein,Urine Trace (Negative); Urobilinogen,Urine <2.0 mg/dL (<2.0)
[2017-08-24 08:14] LABS: Specific Gravity,Urine >1.050 (1.001-1.035)
[2017-08-24] MEDS ORDERED: LORazepam 2 MG/ML INJ IV PRN ×2 (08:14)
[2017-08-24] MEDS: LORazepam 2 MG/ML INJ IV PRN ×2 (08:53→13:16)
[2017-08-24] MEDS ORDERED: ASPIRIN 325 MG TAB PO SCH (09:00)
[2017-08-24 10:41] LABS: Cholesterol 209 mg/dL (<200); HDL Cholesterol 49 mg/dL (40-60); LDL Cholesterol,Calculated 135 mg/dL (0-99); Triglycerides 127 mg/dL (<150)
[2017-08-24 11:42] LABS: Creatine Kinase 159 U/L (55-170)
[2017-08-24 11:54] LABS: Creatine Kinase MB 0.5 ng/mL (0.0-2.4); Troponin I <0.012 ng/mL (0.000-0.034)
--- NOTE | 2017-08-24 14:20 | P.CRDCN ---
History of Present Illness Consult date: 08/24/17 Consult reason: chest pain History of present illness: Mr. Aguilar is a pleasant 62-year-old male past medical history significant for COPD, diabetes mellitus, gastroesophageal reflux disease, dyslipidemia, hypertension, PE, recent GI bleed and chronic alcohol use. He denies history of coronary artery disease and states he has never seen a follow- up with a talent manager for any reason. We've been asked to see him in consultation for complaints of chest pain. He states he woke up this morning with a pain in his chest and the left precordial region as well as extreme abdominal pain. He states the pain in the abdomen is in the right side mostly. He has also had nausea with no vomiting, diarrhea, diaphoresis, dizziness and mild shortness of breath while he is nauseated dry heaving. The pain in the chest is described as sharp and intermittent lasting less than a few seconds at a time. He denies symptoms of palpitations. He states he has been having diarrhea for the last 3 days and he does have a history of diverticulitis and colitis as well. EKG on arrival reveals sinus tachycardia heart rate [address] or T- wave abnormalities. Chest x-ray reveals left basilar atelectasis. CT of the abdomen and pelvis reveals findings consistent with cirrhosis with a questionable subcentimeter cysts are noted. Cannot completely exclude colitis secondary to incomplete distention. Laboratory data reviewed, hemoglobin 9.1, platelets 150, INR 1.3, d-dimer 0.52, potassium 5.8, sodium 148, creatinine 0.8, AST 122, cardiac enzymes negative 2 , LDL 135, HDL 49. Most recent stress test was a dobutamine stress echocardiogram performed September 2016 was negative for stress-induced ischemia. Most recent echocardiogram performed September 2016 reveals preserved left ventricular systolic function with ejection fraction 55-60%. Review of Systems At the time of my exam: CONSTITUTIONAL: Denies fever. Denies chills. EYES: Denies blurred vision. Denies vision changes. Denies eye pain. EARS, NOSE, MOUTH & THROAT: Denies headache. Denies sore throat. Denies ear pain. CARDIOVASCULAR: Denies chest pain. Denies shortness of breath. Denies orthopnea. Denies PND. Denies palpitations. RESPIRATORY: Denies cough. GASTROINTESTINAL: Complains of abdominal pain with diarrhea and nausea with dry heaves. Denies constipation. Denies vomiting. MUSCULOSKELETAL: Denies myalgias. INTEGUMENTARY: Denies pruitis. Denies rash. NEUROLOGIC: Denies numbness. Denies tingling. Denies weakness. PSYCHIATRIC: Denies anxiety. Denies depression. ENDOCRINE: Denies fatigue. Denies weight change. Denies polydipsia. Denies polyurina. GENITOURINARY: Denies burning, hematuria or urgency with micturation. HEMATOLOGIC: Recent history of gastrointestinal bleeding, requiring transfusion. Past Medical History Past Medical History: Atrial Fibrillation, Chest Pain / Angina, COPD, CVA/TIA, Diabetes Mellitus, GERD/Reflux, GI Bleed, Hyperlipidemia, Hypertension, Pulmonary Embolus (PE) Additional Past Medical History / Comment(s): Pt recently admitted 07/16/17 with upper GI hemoorhage, blood loss anemia and ETOH abuse. Other hx: Upper and lower GI bleeds/anemia, esophageal varicies/diverticulosis, bilateral ankle edema at times, 2016 bacterial septicemia, TIA, NIDDM type II, 2011, cervical disc disease with neck pain goes into R arm, DDD low back goes into R leg, scoliosis, epilepsy when a child, alcoholic last drank 08/23/17 History of Any Multi-Drug Resistant Organisms: None Reported Past Surgical History: Appendectomy, Cholecystectomy Additional Past Surgical History / Comment(s): 07/20/17 EGD, 03/21/17 EGD/ colonoscopy, other colonoscopies. Past Anesthesia/Blood Transfusion Reactions: Previous Problems w/ Anesthesia Additional Past Anesthesia/Blood Transfusion Reaction / Comment(s): after appendix removed sob Smoking Status: Never smoker - Past Family History Mother Family Medical History: COPD, CVA/TIA, Dementia Additional Family Medical History / Comment(s): from a stroke Father Family Medical History: Pneumonia Additional Family Medical History / Comment(s): Father of pneumonia when he was close to 80 yrs old. Medications and Allergies Home Medications Medication Instructions Recorded Confirmed Type Propranolol [Inderal] 10 mg PO TID #90 tab 04/15/17 08/24/17 Rx Allergies Allergy/AdvReac Type Severity Reaction Status Date / Time adhesive tape Allergy Rash/Hives Verified 08/24/17 08:07 egg AdvReac Nausea & Verified 08/24/17 08:07 Vomiting lisinopril AdvReac EYES Verified 08/24/17 08:07 BURN&ITCH/WEAKNESS tomato AdvReac Nausea & Verified 08/24/17 08:07 Vomiting & Diarrhea Physical Exam Vitals: Vital Signs Temp Pulse Resp BP Pulse Ox 08/24/17 13:21 18 08/24/17 13:00 140 H 20 137/77 98 08/24/17 10:30 115 H 17 126/72 95 08/24/17 06:32 97.8 F 123 H 18 146/78 95 08/24/17 05:35 124 H 18 133/77 96 08/24/17 05:07 97.3 F L 120 H 18 155/87 95 Intake and Output 08/23/17 08/24/17 08/24/17 22:59 06:59 14:59 Other: Weight 79.832 kg Blood pressure 126/72 heart rate 115 afebrile maintaining oxygen saturation on room air GENERAL: This is a 62-year-old male in mild distress at the time of my examination secondary to dry heaving. HEENT: Head is atraumatic, normocephalic. Pupils are equal, round. Sclerae anicteric. Conjunctivae are clear. Mucous membranes of the mouth are moist. Neck is supple. There is no jugular venous distention. No carotid bruit is heard. LUNGS: Clear to auscultation no wheezes, rales or rhonchi. No chest wall tenderness is noted on palpation or with deep breathing. HEART: Regular rate and rhythm without murmurs, rubs or gallops. S1 and S2 heard. ABDOMEN: Soft, diffusely tender throughout right upper quadrant worse. Bowel sounds are heard. No organomegaly noted. EXTREMITIES: No evidence of peripheral edema and no calf tenderness noted. VASCULAR: Radial and dorsalis pedis pulses palpated, no evidence of clubbing. NEUROLOGIC: Patient is awake, alert and oriented x3. Results 08/24/17 05:14 08/24/17 05:14 Cardiac Enzymes 08/24/17 08/24/17 08/24/17 Range/Units 05:14 05:14 11:04 AST 122 H (17-59) U/L CK-MB (CK-2) 0.5 0.5 (0.0-2.4) ng/mL Troponin I <0.012 <0.012 (0.000-0.034) ng/mL Coagulation 08/24/17 Range/Units 05:14 PT 12.4 H (9.0-12.0) sec APTT 25.5 (22.0-30.0) sec Lipids 08/24/17 Range/Units 05:14 Triglycerides 127 (<150) mg/dL Cholesterol 209 H (<200) mg/dL HDL Cholesterol 49 (40-60) mg/dL CBC 08/24/17 Range/Units 05:14 WBC 4.8 (3.8-10.6) k/uL RBC 3.79 L (4.30-5.90) m/uL Hgb 9.1 L (13.0-17.5) gm/dL Hct 29.4 L (39.0-53.0) % Plt Count 150 (150-450) k/uL Comprehensive Metabolic Panel 08/24/17 Range/Units 05:14 Sodium 148 H (137-145) mmol/L Potassium 5.8 H (3.5-5.1) mmol/L Chloride 105 (98-107) mmol/L Carbon Dioxide 24 (22-30) mmol/L BUN 14 (9-20) mg/dL Creatinine 0.80 (0.66-1.25) mg/dL Glucose 120 H (74-99) mg/dL Calcium 8.6 (8.4-10.2) mg/dL AST 122 H (17-59) U/L ALT 31 (21-72) U/L Alkaline Phosphatase 104 (38-126) U/L Total Protein 8.5 H (6.3-8.2) g/dL Albumin 4.3 (3.5-5.0) g/dL Current Medications Generic Name Dose Route Start Last Admin Trade Name Freq PRN Reason Stop Dose Admin Lorazepam 1 mg 08/24/17 08:14 08/24/17 13:16 Ativan IV 1 mg Q2HR PRN Administration CIWA 8 or 9 Lorazepam 1 mg 08/24/17 08:14 Ativan IV Q1HR PRN CIWA 10 to 15 Lorazepam 2 mg 08/24/17 08:14 Ativan IV 08/26/17 08:14 Q10M PRN CIWA 16 or higher Miscellaneous Information 1 each 08/24/17 05:23 08/24/17 05:32 Rx Info: Iv Contrast Was Given MISCELLANE 08/26/17 05:24 1 each DAILY PRN Administration Per Protocol Intake and Output 08/23/17 08/24/17 08/24/17 22:59 06:59 14:59 Other: Weight 79.832 kg 08/24/17 05:14 08/24/17 05:14 Assessment and Plan Assessment: ASSESSMENT 1. Chest pain, atypical for an acute coronary event with significant abdominal pain, nausea, dry heaves, diarrhea and sinus tachycardia. Component of dehydration secondary to persistent diarrhea. 2. History of chronic alcohol abuse 3. Recent GI bleeding requiring blood transfusion. 4. Elevated liver enzymes and amylase, possible pancreatitis 5. Hyperkalemia 6. Dyslipidemia, LDL 135 PLAN Repeat EKG and continue to obtain serial cardiac enzymes to rule out an acute coronary event. Check D-dimer. Continue with medical management of abdominal pain. No further cardiac work-up if enzymes are negative. Thank you kindly for this consultation. Nurse Practitioner note has been reviewed, I agree with a documented findings and plan of care. Patient was seen and examined.
[2017-08-24] MEDS: THIAMINE 100 MG TAB PO SCH (17:38)
[2017-08-24] MEDS: PROPRANOLOL 10 MG TAB PO SCH ×2 (17:38→20:20)
[2017-08-24 18:15] LABS: Creatine Kinase 181 U/L (55-170)
[2017-08-24 18:27] LABS: Creatine Kinase MB 0.7 ng/mL (0.0-2.4); Troponin I <0.012 ng/mL (0.000-0.034)
[2017-08-24] MEDS ORDERED: ONDANSETRON 4 MG/2 ML VIAL IVP PRN (18:51)
[2017-08-24] MEDS: SODIUM CHLORIDE 0.45% 1,000 ML IV SCH (18:55)
[2017-08-24] MEDS: FAMOTIDINE 20 MG/2 ML VIAL IV SCH (20:20)
[2017-08-24 20:34] LABS: Glucose,Whole Blood 129 mg/dL (75-99)
--- NOTE | 2017-08-25 03:44 | P.HPIM ---
History of Present Illness H&P Date: 08/24/17 Chief Complaint: Chest pain Patient is a 62-year-old male with a past medical history significant for COPD, diabetes mellitus, gastroesophageal reflux disease, dyslipidemia, hypertension, PE, recent GI bleed and chronic alcohol use came to ER with complaints of chest pain and epigastric abdominal pain. He states he woke up this morning with a pain in his chest and the left precordial region as well as epigastric abdominal pain. He has also had nausea with no vomiting, diarrhea, diaphoresis, dizziness. mild shortness of breath while he is nauseated dry heaving. The pain in the chest is described as sharp and intermittent lasting less than a few seconds at a time. He denies symptoms of palpitations. He states he has been having diarrhea for the last 3 days and he does have a history of diverticulitis and colitis as well. EKG on arrival reveals sinus tachycardia heart rate [address] or T- wave abnormalities. Chest x-ray reveals left basilar atelectasis. CT of the abdomen and pelvis reveals findings consistent with cirrhosis with a questionable subcentimeter cysts are noted. Cannot completely exclude colitis secondary to incomplete distention. D-dimer 0.5 to not elevated Andrew percussion 5.8 sodium 148 AST 122 Troponin 2 negative LDL 135 Serum alcohol 291 Amylase 137 lipase 159 Most recent stress test was a dobutamine stress echocardiogram performed September 2016 was negative for stress-induced ischemia. Most recent echocardiogram performed September 2016 reveals preserved left ventricular systolic function with ejection fraction 55-60%. Review of Systems Constitutional: Patient denies any fever or chills . No generalized weakness or weight loss. Abdomen: Patient does have nausea and abdominal discomfort. Does have diarrhea Cardiovascular: Chest pain. Mild shortness of breath. Respiratory: patient denied any cough is from production. No shortness of breath Neurologic: Patient denied any numbness or tingling headache. Musculoskeletal: Patient denies any complaints of joint swelling or deformity. Skin: Negative Psychiatric: Negative Endocrine: No heat or cold intolerance. No recent weight gain. Genitourinary: No dysuria or hematuria. All other 14 point ROS negative except the above Past Medical History Past Medical History: Atrial Fibrillation, Chest Pain / Angina, COPD, CVA/TIA, Diabetes Mellitus, GERD/Reflux, GI Bleed, Hyperlipidemia, Hypertension, Pulmonary Embolus (PE) Additional Past Medical History / Comment(s): Pt recently admitted 07/16/17 with upper GI hemoorhage, blood loss anemia and ETOH abuse. Other hx: Upper and lower GI bleeds/anemia, esophageal varicies/diverticulosis, bilateral ankle edema at times, 2016 bacterial septicemia, TIA, NIDDM type II, 2012, cervical disc disease with neck pain goes into R arm, DDD low back goes into R leg, scoliosis, epilepsy when a child, alcoholic last drank 08/23/17 History of Any Multi-Drug Resistant Organisms: None Reported Past Surgical History: Appendectomy, Cholecystectomy Additional Past Surgical History / Comment(s): 07/20/17 EGD, 03/21/17 EGD/ colonoscopy, other colonoscopies. Past Anesthesia/Blood Transfusion Reactions: Previous Problems w/ Anesthesia Additional Past Anesthesia/Blood Transfusion Reaction / Comment(s): after appendix removed sob Smoking Status: Never smoker - Past Family History Mother Family Medical History: COPD, CVA/TIA, Dementia Additional Family Medical History / Comment(s): from a stroke Father Family Medical History: Pneumonia Additional Family Medical History / Comment(s): Father of pneumonia when he was close to 80 yrs old. Medications and Allergies Home Medications Medication Instructions Recorded Confirmed Type Propranolol [Inderal] 10 mg PO TID #90 tab 04/15/17 08/24/17 Rx Allergies Allergy/AdvReac Type Severity Reaction Status Date / Time adhesive tape Allergy Rash/Hives Verified 08/24/17 08:07 egg AdvReac Nausea & Verified 08/24/17 08:07 Vomiting lisinopril AdvReac EYES Verified 08/24/17 08:07 BURN&ITCH/WEAKNESS tomato AdvReac Nausea & Verified 08/24/17 08:07 Vomiting & Diarrhea Physical Exam Vitals: Vital Signs Temp Pulse Resp BP Pulse Ox 08/24/17 14:36 97.8 F 134 H 16 130/71 96 08/24/17 13:21 18 08/24/17 13:00 140 H 20 137/77 98 08/24/17 10:30 115 H 17 126/72 95 08/24/17 06:32 97.8 F 123 H 18 146/78 95 08/24/17 05:35 124 H 18 133/77 96 08/24/17 05:07 97.3 F L 120 H 18 155/87 95 Intake and Output 08/24/17 08/24/17 08/24/17 06:59 14:59 22:59 Other: Weight 79.832 kg PHYSICAL EXAMINATION: Patient is lying in the bed comfortably, no acute distress, awake alert and oriented. Slight confusion. HEENT: Normocephalic. Neck is supple. Pupils reactive. Nostrils clear. Oral cavity is moist. Ears reveal no drainage. Neck reveals no JVD, carotid bruits, or thyromegaly. CHEST EXAMINATION: Trachea is central. Symmetrical expansion. Lung guadalupe clear to auscultation and percussion. CARDIAC: Normal S1, S2 with no gallops. No murmurs ABDOMEN: Soft. Mildly epigastric tenderness, Bowel sounds normal. No organomegaly. No abdominal bruits. Extremities: reveal no edema. No clubbing or cyanosis Neurologically awake, alert, oriented x3 with well-coordinated movements. No focal deficits noted Skin: No rash or skin lesions. Psychiatric: Cooperative. Nonsuicidal Musculoskeletal: No joint swelling or deformity. Normal range of motion. Results CBC & Chem 7: 08/24/17 05:14 08/24/17 05:14 Labs: Abnormal Lab Results - Last 24 Hours (Table) 08/24/17 08/24/17 08/24/17 Range/Units 05:14 05:14 05:14 RBC 3.79 L (4.30-5.90) m/uL Hgb 9.1 L (13.0-17.5) gm/dL Hct 29.4 L (39.0-53.0) % MCV 77.5 L (80.0-100.0) fL MCH 23.9 L (25.0-35.0) pg MCHC 30.9 L (31.0-37.0) g/dL RDW 19.2 H (11.5-15.5) % PT (9.0-12.0) sec INR (<1.2) Sodium 148 H (137-145) mmol/L Potassium 5.8 H (3.5-5.1) mmol/L Glucose 120 H (74-99) mg/dL AST 122 H (17-59) U/L Total Creatine Kinase 190 H (55-170) U/L Total Protein 8.5 H (6.3-8.2) g/dL Cholesterol (<200) mg/dL LDL Cholesterol, Calc (0-99) mg/dL Amylase 137 H (30-110) U/L Ur Specific [place] (1.001-1.035) Urine Protein (Negative) Urine Ketones (Negative) 08/24/17 08/24/17 08/24/17 Range/Units 05:14 05:14 07:20 RBC (4.30-5.90) m/uL Hgb (13.0-17.5) gm/dL Hct (39.0-53.0) % MCV (80.0-100.0) fL MCH (25.0-35.0) pg MCHC (31.0-37.0) g/dL RDW (11.5-15.5) % PT 12.4 H (9.0-12.0) sec INR 1.3 H (<1.2) Sodium (137-145) mmol/L Potassium (3.5-5.1) mmol/L Glucose (74-99) mg/dL AST (17-59) U/L Total Creatine Kinase (55-170) U/L Total Protein (6.3-8.2) g/dL Cholesterol 209 H (<200) mg/dL LDL Cholesterol, Calc 135 H (0-99) mg/dL Amylase (30-110) U/L Ur Specific [place] >1.050 H (1.001-1.035) Urine Protein Trace H (Negative) Urine Ketones 1+ H (Negative) Thrombosis Risk Factor Assmnt - DVT/VTE Prophylaxis DVT/VTE Prophylaxis: Pharmacologic Prophylaxis ordered - Choose All That Apply Any of the Below Risk Factors Present?: Yes Each Factor Represents 1 point: Abnormal pulmonary function (COPD), Obesity ( BMI >25) Other Risk Factors: Yes Each Risk Factor Represents 2 Points: Age 61-74 years Other congenital or acquired thrombophilia - If yes, enter type in comment: No Thrombosis Risk Factor Assessment Total Risk Factor Score: 4 Thrombosis Risk Factor Assessment Level: Moderate Risk Assessment and Plan Assessment: Atypical chest pain. Ruled out acute coronary syndrome. Likely due to epigastric abdominal pain and mild sigmoid colitis with minimal mucosal THICKENING cannot be excluded Acute alcohol intoxication Microcytic anemia hemoglobin level 9.1. Rule out iron deficiency Chronic Alcohol abuse. Monitor for withdrawal symptoms. Elevated AST level Hypernatremia due to dehydration and volume depletion Hyperkalemia Hyperlipidemia History of recent upper GI bleed with history of EGD on 07/20/2017 showing esophageal varices without stigmata of bleeding Esophageal varices diverticulosis Cervical disc disease with neck pain Scoliosis DVT prophylaxis Plan: Patient will be continued on telemetry monitoring. Serial troponins are negative. Patient was started on Pepcid IV twice a day and thiamine and multivitamins and IV fluids. Cardiology has seen the patient. Continue the symptomatic management and follow up closely. Patient had recent cardiac workup including stress test is negative. We'll follow-up repeat labs in the morning tomorrow. Further recommendations based on the critical course. Time with Patient: Greater than 30
[2017-08-25] MEDS: SODIUM CHLORIDE 0.45% 1,000 ML IV SCH ×2 (03:51→14:01)
[2017-08-25] MEDS: LORazepam 2 MG/ML INJ IV PRN (03:52)
[2017-08-25 06:48] LABS: Glucose,Whole Blood 146 mg/dL (75-99)
[2017-08-25 07:50] LABS: Anisocytosis Slight; Basophils % (A) 0 %; Eosinophils # (A) 0.1 k/uL (0-0.7); Eosinophils % (A) 2 %; HCT 26.2 % (39.0-53.0); Hypochromasia Marked; Lymphocytes % (A) 31 %; MCH 23.7 pg (25.0-35.0); MCHC 30.5 g/dL (31.0-37.0); MCV 77.7 fL (80.0-100.0); Mean Platelet Volume 8.6; Microcytosis Slight; Monocytes # (A) 0.2 k/uL (0-1.0); Monocytes % (A) 6 %; Neutrophils # (A) 1.9 k/uL (1.3-7.7); Neutrophils % (A) 59 %; Platelet Count 110 k/uL (150-450); RBC 3.37 m/uL (4.30-5.90); RDW 19.1 % (11.5-15.5); WBC 3.3 k/uL (3.8-10.6)
[2017-08-25] MEDS ORDERED: HEPARIN SODIUM,PORCINE 5,000 UNIT/ML 1 ML VIAL SQ SCH (08:00)
[2017-08-25 08:01] LABS: ALT 38 U/L (21-72); AST 76 U/L (17-59); Albumin 3.3 g/dL (3.5-5.0); Alkaline Phosphatase 96 U/L (38-126); Anion Gap 12 mmol/L; Blood Urea Nitrogen 12 mg/dL (9-20); Calcium 8.8 mg/dL (8.4-10.2); Carbon Dioxide 28 mmol/L (22-30); Chloride 99 mmol/L (98-107); Glucose 133 mg/dL (74-99); Potassium 3.3 mmol/L (3.5-5.1); Sodium 139 mmol/L (137-145); Total Bilirubin 0.8 mg/dL (0.2-1.3); Total Protein 6.8 g/dL (6.3-8.2)
[2017-08-25 09:13] VITALS: BMI 29.0
[2017-08-25] MEDS: PROPRANOLOL 10 MG TAB PO SCH ×3 (09:32→21:01)
[2017-08-25] MEDS: FAMOTIDINE 20 MG/2 ML VIAL IV SCH (09:32)
[2017-08-25 12:11] LABS: Glucose,Whole Blood 131 mg/dL (75-99)
[2017-08-25] MEDS ORDERED: Potassium Replacement Protocol 1 EACH MISC MISCELLANE PRN (12:52)
[2017-08-25] MEDS: THIAMINE 100 MG TAB PO SCH (13:35)
[2017-08-25] MEDS: FOLIC ACID 1 MG TAB PO SCH (13:35)
[2017-08-25] MEDS: POTASSIUM CHLORIDE 10 MEQ in WATER FOR INJECTION 1 100ML.BAG IVPB SCH ×2 (14:22→15:44)
[2017-08-25] MEDS ORDERED: chlorproMAZINE 25 MG TAB PO PRN (15:39)
[2017-08-25 16:09] LABS: Iron Saturation 28.71 (15.00-50.00)
[2017-08-25 17:57] LABS: Glucose,Whole Blood 115 mg/dL (75-99)
[2017-08-25 18:55] LABS: Hemoglobin A1C 5.6 % (4.0-6.0)
[2017-08-25 21:00] LABS: Glucose,Whole Blood 162 mg/dL (75-99)
[2017-08-25] MEDS: PANTOPRAZOLE 40 MG/10 ML VIAL IVP SCH (21:01)
--- NOTE | 2017-08-26 00:07 | P.PN ---
Subjective Progress Note Date: 08/25/17 Principal diagnosis: Abdominal pain and alcohol intoxication on admission with withdrawal symptoms now Patient is a 62-year-old male with a past medical history significant for COPD, diabetes mellitus, gastroesophageal reflux disease, dyslipidemia, hypertension, PE, recent GI bleed and chronic alcohol use came to ER with complaints of chest pain and epigastric abdominal pain. He states he woke up this morning with a pain in his chest and the left precordial region as well as epigastric abdominal pain. He has also had nausea with no vomiting, diarrhea, diaphoresis, dizziness. mild shortness of breath while he is nauseated dry heaving. The pain in the chest is described as sharp and intermittent lasting less than a few seconds at a time. He denies symptoms of palpitations. He states he has been having diarrhea for the last 3 days and he does have a history of diverticulitis and colitis as well. EKG on arrival reveals sinus tachycardia heart rate [address] or T- wave abnormalities. Chest x-ray reveals left basilar atelectasis. CT of the abdomen and pelvis reveals findings consistent with cirrhosis with a questionable subcentimeter cysts are noted. Cannot completely exclude colitis secondary to incomplete distention. D-dimer 0.5 to not elevated . Potassium 5.8 sodium 148 AST 122 Troponin 2 negative LDL 135 Serum alcohol 291 Amylase 137 lipase 159 Most recent stress test was a dobutamine stress echocardiogram performed September 2016 was negative for stress-induced ischemia. Most recent echocardiogram performed September 2016 reveals preserved left ventricular systolic function with ejection fraction 55-60%. 08/25/2017 Patient is still complaining of right upper quadrant and epigastric abdominal pain. Patient was complaining of hiccups in the morning today Otherwise hemoglobin dropped to 8.1 which is his baseline. AST level improved to 76 today. Potassium level 3.3 which is being replaced. Patient is being converted on alcohol withdrawal protocol. Current with IV Cardizem IV fluids and Pepcid changed to Protonix IV twice a day. Encourage oral intake. No fever no chills. No chest pain no shortness of breath. No leg swelling. All other review of systems negative except the above Active Medications Generic Name Dose Route Start Last Admin Trade Name Freq PRN Reason Stop Dose Admin Chlorpromazine HCl 25 mg 08/25/17 15:39 08/25/17 17:46 Thorazine PO 25 mg Q6HR PRN Administration Hiccups Folic Acid 1 mg 08/25/17 12:00 08/25/17 13:35 Folic Acid PO 1 mg DAILY@1200 TANYA Administration Sodium Chloride 1,000 mls @ 100 mls/hr 08/24/17 15:30 08/25/17 14:01 Saline 0.45% IV 100 mls/hr .Q10H TANYA Administration Lorazepam 1 mg 08/24/17 08:14 08/25/17 03:52 Ativan IV 1 mg Q2HR PRN Administration CIWA 8 or 9 Lorazepam 1 mg 08/24/17 08:14 08/24/17 17:34 Ativan IV 1 mg Q1HR PRN Administration CIWA 10 to 15 Lorazepam 2 mg 08/24/17 08:14 Ativan IV 08/26/17 08:14 Q10M PRN CIWA 16 or higher Miscellaneous Information 1 each 08/24/17 05:23 08/24/17 05:32 Rx Info: Iv Contrast Was Given MISCELLANE 08/26/17 05:24 1 each DAILY PRN Administration Per Protocol Miscellaneous Information 1 each 08/25/17 12:52 Potassium Per Protocol MISCELLANE DAILY PRN Per Protocol Protocol Ondansetron HCl 4 mg 08/24/17 18:51 Zofran IVP Q6HR PRN Nausea And Vomiting Pantoprazole Sodium 40 mg 08/25/17 21:00 08/25/17 21:01 Protonix IVP 40 mg BID TANYA Administration Propranolol HCl 10 mg 08/24/17 16:00 08/25/17 21:01 Inderal PO 10 mg TID TANYA Administration Thiamine HCl 100 mg 08/24/17 15:30 08/25/17 13:35 Vitamin B-1 PO 100 mg DAILY@1200 TANYA Administration Objective - Vital Signs Vital signs: Vital Signs Temp 98.1 F 08/25/17 15:20 Pulse 94 08/25/17 15:20 Resp 16 08/25/17 15:20 BP 150/89 08/25/17 15:20 Pulse Ox 96 08/25/17 15:20 Intake & Output 08/24/17 08/25/17 08/25/17 18:59 06:59 18:59 Intake Total 300 Balance 300 Weight 79 kg 79 kg 79 kg Intake: Oral 300 Other: # Voids 3 - Exam PHYSICAL EXAMINATION: Patient is lying in the bed comfortably, no acute distress, awake alert and oriented.. HEENT: Normocephalic. Neck is supple. Pupils reactive. Nostrils clear. Oral cavity is moist. Ears reveal no drainage. Neck reveals no JVD, carotid bruits, or thyromegaly. CHEST EXAMINATION: Trachea is central. Symmetrical expansion. Lung guadalupe clear to auscultation and percussion. CARDIAC: Normal S1, S2 with no gallops. No murmurs ABDOMEN: Soft. Mild epigastric tenderness. Bowel sounds normal. No organomegaly. No abdominal bruits. Extremities: reveal no edema. No clubbing or cyanosis Neurologically awake, alert, oriented x3 with well-coordinated movements. No focal deficits noted Skin: No rash or skin lesions. Psychiatric: Cooperative. Nonsuicidal Musculoskeletal: No joint swelling or deformity. Normal range of motion. - Labs CBC & Chem 7: 08/25/17 06:53 08/25/17 06:53 Labs: Abnormal Lab Results - Last 24 Hours (Table) 08/24/17 08/24/17 08/25/17 Range/Units 17:11 20:26 06:43 WBC (3.8-10.6) k/uL RBC (4.30-5.90) m/uL Hgb (13.0-17.5) gm/dL Hct (39.0-53.0) % MCV (80.0-100.0) fL MCH (25.0-35.0) pg MCHC (31.0-37.0) g/dL RDW (11.5-15.5) % Plt Count (150-450) k/uL Potassium (3.5-5.1) mmol/L Glucose (74-99) mg/dL POC Glucose (mg/dL) 129 H 146 H (75-99) mg/dL AST (17-59) U/L Total Creatine Kinase 181 H (55-170) U/L Albumin (3.5-5.0) g/dL 08/25/17 08/25/17 08/25/17 Range/Units 06:53 06:53 12:03 WBC 3.3 L (3.8-10.6) k/uL RBC 3.37 L (4.30-5.90) m/uL Hgb 8.0 L (13.0-17.5) gm/dL Hct 26.2 L (39.0-53.0) % MCV 77.7 L (80.0-100.0) fL MCH 23.7 L (25.0-35.0) pg MCHC 30.5 L (31.0-37.0) g/dL RDW 19.1 H (11.5-15.5) % Plt Count 110 L (150-450) k/uL Potassium 3.3 L (3.5-5.1) mmol/L Glucose 133 H (74-99) mg/dL POC Glucose (mg/dL) 131 H (75-99) mg/dL AST 76 H (17-59) U/L Total Creatine Kinase (55-170) U/L Albumin 3.3 L (3.5-5.0) g/dL Assessment and Plan Assessment: Atypical chest pain. Ruled out acute coronary syndrome. Likely due to epigastric abdominal pain and mild sigmoid colitis with minimal mucosal THICKENING cannot be excluded Acute alcohol intoxication on admission Microcytic anemia hemoglobin level 9.1--8.0. Rule out iron deficiency Chronic Alcohol abuse. Monitor for withdrawal symptoms. Elevated AST level Hypernatremia due to dehydration and volume depletion Hyperkalemia. Resolved Hypokalemia Hyperlipidemia History of recent upper GI bleed with history of EGD on 07/20/2017 showing esophageal varices without stigmata of bleeding Esophageal varices diverticulosis Cervical disc disease with neck pain Scoliosis DVT prophylaxis Plan: Patient will be continued on telemetry monitoring. Serial troponins are negative. Patient was started on Pepcid IV twice a day, changed to Protonix twice a day and thiamine and multivitamins and IV fluids. Cardiology has seen the patient. Continue the symptomatic management and follow up closely. Patient had recent cardiac workup including stress test is negative. We'll follow-up repeat labs in the morning tomorrow. Further recommendations based on the critical course. Time with Patient: Greater than 30
[2017-08-26 06:54] LABS: ALT 37 U/L (21-72); AST 71 U/L (17-59); Albumin 3.3 g/dL (3.5-5.0); Alkaline Phosphatase 90 U/L (38-126); Anion Gap 12 mmol/L; Blood Urea Nitrogen 11 mg/dL (9-20); Calcium 8.8 mg/dL (8.4-10.2); Carbon Dioxide 25 mmol/L (22-30); Chloride 103 mmol/L (98-107); Glucose 115 mg/dL (74-99); Potassium 3.8 mmol/L (3.5-5.1); Sodium 140 mmol/L (137-145); Total Bilirubin 0.5 mg/dL (0.2-1.3); Total Protein 6.9 g/dL (6.3-8.2)
[2017-08-26 07:00] LABS: Glucose,Whole Blood 123 mg/dL (75-99)
[2017-08-26 07:05] LABS: Anisocytosis Slight; Basophils % (A) 0 %; Eosinophils # (A) 0.1 k/uL (0-0.7); Eosinophils % (A) 3 %; HCT 25.9 % (39.0-53.0); HGB 7.8 gm/dL (13.0-17.5); Hypochromasia Marked; Lymphocytes # (A) 1.3 k/uL (1.0-4.8); Lymphocytes % (A) 33 %; MCH 23.7 pg (25.0-35.0); MCHC 30.2 g/dL (31.0-37.0); MCV 78.3 fL (80.0-100.0); Mean Platelet Volume 7.8; Microcytosis Slight; Monocytes # (A) 0.2 k/uL (0-1.0); Monocytes % (A) 4 %; Neutrophils # (A) 2.4 k/uL (1.3-7.7); Neutrophils % (A) 59 %; Platelet Count 105 k/uL (150-450); Poikilocytosis Slight; RBC 3.31 m/uL (4.30-5.90); RDW 18.1 % (11.5-15.5); WBC 4.1 k/uL (3.8-10.6)
[2017-08-26] MEDS: SODIUM CHLORIDE 0.45% 1,000 ML IV SCH ×3 (09:13→17:04)
[2017-08-26] MEDS: PANTOPRAZOLE 40 MG/10 ML VIAL IVP SCH (09:14)
[2017-08-26] MEDS: PROPRANOLOL 10 MG TAB PO SCH ×3 (09:14→20:33)
[2017-08-26] MEDS: FOLIC ACID 1 MG TAB PO SCH (09:14)
[2017-08-26] MEDS: THIAMINE 100 MG TAB PO SCH (09:14)
[2017-08-26 12:17] LABS: Glucose,Whole Blood 113 mg/dL (75-99)
[2017-08-26] MEDS ORDERED: SODIUM FERRIC GLUCONAT-SUCROSE 125 MG in SODIUM CHLORIDE 0.9% 100 ML IVPB ONE (15:30)
[2017-08-26] MEDS: PANTOPRAZOLE 40 MG TABLET PO SCH (16:02)
[2017-08-26 17:09] LABS: Glucose,Whole Blood 103 mg/dL (75-99)
[2017-08-26 20:53] LABS: Glucose,Whole Blood 110 mg/dL (75-99)
--- NOTE | 2017-08-26 23:26 | P.PN ---
Subjective Progress Note Date: 08/26/17 Principal diagnosis: Abdominal pain and alcohol intoxication on admission with withdrawal symptoms now Patient is a 62-year-old male with a past medical history significant for COPD, diabetes mellitus, gastroesophageal reflux disease, dyslipidemia, hypertension, PE, recent GI bleed and chronic alcohol use came to ER with complaints of chest pain and epigastric abdominal pain. He states he woke up this morning with a pain in his chest and the left precordial region as well as epigastric abdominal pain. He has also had nausea with no vomiting, diarrhea, diaphoresis, dizziness. mild shortness of breath while he is nauseated dry heaving. The pain in the chest is described as sharp and intermittent lasting less than a few seconds at a time. He denies symptoms of palpitations. He states he has been having diarrhea for the last 3 days and he does have a history of diverticulitis and colitis as well. EKG on arrival reveals sinus tachycardia heart rate [address] or T- wave abnormalities. Chest x-ray reveals left basilar atelectasis. CT of the abdomen and pelvis reveals findings consistent with cirrhosis with a questionable subcentimeter cysts are noted. Cannot completely exclude colitis secondary to incomplete distention. D-dimer 0.5 to not elevated . Potassium 5.8 sodium 148 AST 122 Troponin 2 negative LDL 135 Serum alcohol 291 Amylase 137 lipase 159 Most recent stress test was a dobutamine stress echocardiogram performed September 2016 was negative for stress-induced ischemia. Most recent echocardiogram performed September 2016 reveals preserved left ventricular systolic function with ejection fraction 55-60%. 08/25/2017 Patient is still complaining of right upper quadrant and epigastric abdominal pain. Patient was complaining of hiccups in the morning today Otherwise hemoglobin dropped to 8.1 which is his baseline. AST level improved to 76 today. Potassium level 3.3 which is being replaced. Patient is being converted on alcohol withdrawal protocol. Current with IV Cardizem IV fluids and Pepcid changed to Protonix IV twice a day. Encourage oral intake. No fever no chills. No chest pain no shortness of breath. No leg swelling. 08/26/2017 Patient states that his abdominal pain is better today. Hemoglobin 7.8. No nausea vomiting. Patient was started on liquid diet and advance as tolerated. Otherwise patient was found to have iron deficiency anemia and IV iron will be given while in the hospital. Continue to monitor for alcohol withdrawal symptoms area did Protonix will be changed to oral. Otherwise no chest pain shortness of breath. All other review of systems negative except the above Active Medications Generic Name Dose Route Start Last Admin Trade Name [place] PRN Reason Stop Dose Admin Chlorpromazine HCl 25 mg 08/25/17 15:39 08/25/17 17:46 Thorazine PO 25 mg Q6HR PRN Administration Hiccups Folic Acid 1 mg 08/25/17 12:00 08/26/17 09:14 Folic Acid PO 1 mg DAILY@1200 TANYA Administration Sodium Chloride 1,000 mls @ 100 mls/hr 08/24/17 15:30 08/26/17 17:04 Saline 0.45% IV Not Given .Q10H TANYA Ferric Sodium Gluconate 125 mg 110 mls @ 100 mls/hr 08/27/17 09:00 / Sodium Chloride IVPB DAILY TANYA Lorazepam 1 mg 08/24/17 08:14 08/25/17 03:52 Ativan IV 1 mg Q2HR PRN Administration CIWA 8 or 9 Lorazepam 1 mg 08/24/17 08:14 08/24/17 17:34 Ativan IV 1 mg Q1HR PRN Administration CIWA 10 to 15 Miscellaneous Information 1 each 08/25/17 12:52 Potassium Per Protocol MISCELLANE DAILY PRN Per Protocol Protocol Ondansetron HCl 4 mg 08/24/17 18:51 Zofran IVP Q6HR PRN Nausea And Vomiting Pantoprazole Sodium 40 mg 08/26/17 15:30 08/26/17 16:02 Protonix PO 40 mg [id number] TANYA Administration Propranolol HCl 10 mg 08/24/17 16:00 08/26/17 20:33 Inderal PO 10 mg TID TANYA Administration Thiamine HCl 100 mg 08/24/17 15:30 08/26/17 09:14 Vitamin B-1 PO 100 mg DAILY@1200 TANYA Administration Objective - Vital Signs Vital signs: Vital Signs Temp 98.1 F 08/26/17 16:34 Pulse 94 08/26/17 16:34 Resp 18 08/26/17 16:34 BP 140/86 08/26/17 16:34 Pulse Ox 98 08/26/17 16:34 Intake & Output 08/25/17 08/26/17 08/26/17 18:59 06:59 18:59 Intake Total 536 660 Balance 536 660 Weight 79 kg Intake: Oral 536 660 - Exam PHYSICAL EXAMINATION: Patient is lying in the bed comfortably, no acute distress, awake alert and oriented.. HEENT: Normocephalic. Neck is supple. Pupils reactive. Nostrils clear. Oral cavity is moist. Ears reveal no drainage. Neck reveals no JVD, carotid bruits, or thyromegaly. CHEST EXAMINATION: Trachea is central. Symmetrical expansion. Lung guadalupe clear to auscultation and percussion. CARDIAC: Normal S1, S2 with no gallops. No murmurs ABDOMEN: Soft. Nontender. Bowel sounds normal. No organomegaly. No abdominal bruits. Extremities: reveal no edema. No clubbing or cyanosis Neurologically awake, alert, oriented x3 with well-coordinated movements. No focal deficits noted Skin: No rash or skin lesions. Psychiatric: Cooperative. Nonsuicidal Musculoskeletal: No joint swelling or deformity. Normal range of motion. - Labs CBC & Chem 7: 08/26/17 06:09 08/26/17 06:09 Labs: Abnormal Lab Results - Last 24 Hours (Table) 08/25/17 08/25/17 08/25/17 Range/Units 06:53 17:50 20:51 RBC (4.30-5.90) m/uL Hgb (13.0-17.5) gm/dL Hct (39.0-53.0) % MCV (80.0-100.0) fL MCH (25.0-35.0) pg MCHC (31.0-37.0) g/dL RDW (11.5-15.5) % Plt Count (150-450) k/uL Glucose (74-99) mg/dL POC Glucose (mg/dL) 115 H 162 H (75-99) mg/dL Transferrin 361.0 H (204.0-354.0) mg/dL Ferritin 20.8 L (22.0-322.0) ng/mL AST (17-59) U/L Albumin (3.5-5.0) g/dL 08/26/17 08/26/17 08/26/17 Range/Units 06:09 06:09 06:54 RBC 3.31 L (4.30-5.90) m/uL Hgb 7.8 L (13.0-17.5) gm/dL Hct 25.9 L (39.0-53.0) % MCV 78.3 L (80.0-100.0) fL MCH 23.7 L (25.0-35.0) pg MCHC 30.2 L (31.0-37.0) g/dL RDW 18.1 H (11.5-15.5) % Plt Count 105 L (150-450) k/uL Glucose 115 H (74-99) mg/dL POC Glucose (mg/dL) 123 H (75-99) mg/dL Transferrin (204.0-354.0) mg/dL Ferritin (22.0-322.0) ng/mL AST 71 H (17-59) U/L Albumin 3.3 L (3.5-5.0) g/dL 08/26/17 08/26/17 Range/Units 12:15 17:07 RBC (4.30-5.90) m/uL Hgb (13.0-17.5) gm/dL Hct (39.0-53.0) % MCV (80.0-100.0) fL MCH (25.0-35.0) pg MCHC (31.0-37.0) g/dL RDW (11.5-15.5) % Plt Count (150-450) k/uL Glucose (74-99) mg/dL POC Glucose (mg/dL) 113 H 103 H (75-99) mg/dL Transferrin (204.0-354.0) mg/dL Ferritin (22.0-322.0) ng/mL AST (17-59) U/L Albumin (3.5-5.0) g/dL Assessment and Plan Assessment: Atypical chest pain. Ruled out acute coronary syndrome. Likely due to epigastric abdominal pain and mild sigmoid colitis with minimal mucosal THICKENING cannot be excluded Acute alcohol intoxication on admission Microcytic iron deficiency anemia hemoglobin level 9.1--8.0--7.8. Chronic Alcohol abuse. Monitor for withdrawal symptoms. Elevated AST level Hypernatremia due to dehydration and volume depletion Hyperkalemia. Resolved Hypokalemia Hyperlipidemia History of recent upper GI bleed with history of EGD on 07/20/2017 showing esophageal varices without stigmata of bleeding Esophageal varices diverticulosis Cervical disc disease with neck pain Scoliosis DVT prophylaxis Plan: Patient will be continued on telemetry monitoring. Serial troponins are negative. Patient was started on Pepcid IV twice a day, changed to Protonix twice a day and thiamine and multivitamins and IV fluids. Cardiology has seen the patient. Continue the symptomatic management and follow up closely. Patient had recent cardiac workup including stress test is negative. We'll follow-up repeat labs in the morning tomorrow. Further recommendations based on the critical course. He had spent discharged tomorrow. Time with Patient: Greater than 30
[2017-08-27] MEDS: LORazepam 2 MG/ML INJ IV PRN (04:35)
[2017-08-27] MEDS: SODIUM CHLORIDE 0.45% 1,000 ML IV SCH ×2 (04:37→08:47)
[2017-08-27 07:00] LABS: Anion Gap 12 mmol/L; Blood Urea Nitrogen 10 mg/dL (9-20); Calcium 8.6 mg/dL (8.4-10.2); Carbon Dioxide 24 mmol/L (22-30); Chloride 106 mmol/L (98-107); Glucose 99 mg/dL (74-99); Potassium 3.7 mmol/L (3.5-5.1); Sodium 142 mmol/L (137-145)
[2017-08-27 07:01] LABS: Anisocytosis Slight; HCT 25.5 % (39.0-53.0); HGB 7.7 gm/dL (13.0-17.5); Hypochromasia Marked; MCH 23.9 pg (25.0-35.0); MCHC 30.2 g/dL (31.0-37.0); Mean Platelet Volume 8.2; Microcytosis Slight; Platelet Count 102 k/uL (150-450); Poikilocytosis Slight; RBC 3.22 m/uL (4.30-5.90); RDW 18.4 % (11.5-15.5); WBC 5.2 k/uL (3.8-10.6)
[2017-08-27 07:31] LABS: Glucose,Whole Blood 106 mg/dL (75-99)
[2017-08-27 08:21] VITALS: RESP 16
[2017-08-27] MEDS: PROPRANOLOL 10 MG TAB PO SCH ×2 (08:45→16:34)
[2017-08-27] MEDS: PANTOPRAZOLE 40 MG TABLET PO SCH (08:45)
[2017-08-27] MEDS ORDERED: SODIUM FERRIC GLUCONAT-SUCROSE 125 MG in SODIUM CHLORIDE 0.9% 100 ML IVPB SCH (09:00)
[2017-08-27 13:10] LABS: Glucose,Whole Blood 115 mg/dL (75-99)
[2017-08-27] MEDS: FOLIC ACID 1 MG TAB PO SCH (13:55)
[2017-08-27] MEDS: THIAMINE 100 MG TAB PO SCH (13:55)
[2017-08-27 14:55] VITALS: BP 125/70; PULSE 100; TEMP 98
[2017-08-27 17:16] LABS: Glucose,Whole Blood 97 mg/dL (75-99)
== END 2017-08-27 17:54 | disposition home or self-care (01) | DRG 392 ==
LOC: EC 05:03 → 3OBS 07:35 → OBSVTOIN 08-26 09:24
PROVIDERS: ADMIT Hospitalist; ATTEND Hospitalist
DX: K52.9 Noninfective gastroenteritis and colitis, unspecified (principal); E87.0 Hyperosmolality and hypernatremia; I85.00 Esophageal varices without bleeding; E87.5 Hyperkalemia; I48.91 Unspecified atrial fibrillation; M41.9 Scoliosis, unspecified; E86.0 Dehydration; F10.239 Alcohol dependence with withdrawal, unspecified; R07.89 Other chest pain; E78.5 Hyperlipidemia, unspecified; K57.90 Diverticulosis of intestine, part unspecified, without perforation or abscess without bleeding; M50.30 Other cervical disc degeneration, unspecified cervical region; E66.9 Obesity, unspecified; E11.9 Type 2 diabetes mellitus without complications; J44.9 Chronic obstructive pulmonary disease, unspecified; K21.9 Gastro-esophageal reflux disease without esophagitis; R00.0 Tachycardia, unspecified; K74.60 Unspecified cirrhosis of liver; F10.229 Alcohol dependence with intoxication, unspecified; R06.6 Hiccough; E87.6 Hypokalemia; D50.9 Iron deficiency anemia, unspecified; I10 Essential (primary) hypertension; Z86.69 Personal history of other diseases of the nervous system and sense organs; Z68.29 Body mass index [BMI] 29.0-29.9, adult; Z86.73 Personal history of transient ischemic attack (TIA), and cerebral infarction without residual deficits; Z91.012 Allergy to eggs; Z87.19 Personal history of other diseases of the digestive system; Z86.711 Personal history of pulmonary embolism; Z88.8 Allergy status to other drugs, medicaments and biological substances; Z91.018 Allergy to other foods; Z79.899 Other long term (current) drug therapy; Z82.5 Family history of asthma and other chronic lower respiratory diseases; Z82.3 Family history of stroke; Z81.8 Family history of other mental and behavioral disorders; Z90.49 Acquired absence of other specified parts of digestive tract; Z86.59 Personal history of other mental and behavioral disorders
CPT/HCPCS: 36415; 71045; 74177; 80048; 80053; 80061; 80320; 81003; 82150; 82550; 82553; 82728; 83036; 83540; 83550; 83690; 84466; 84484; 85025; 85027; 85379; 85610; 85730; 87502; 93005; 94760; 96361; 96374; 96375; 96376; 99285

== ENCOUNTER 2017-09-22 08:22 | Inpatient (IN) | payer OTHER ==
[2017-09-22] MEDS ORDERED: SODIUM CHLORIDE 0.9% 500 ML IV STA (08:57)
--- NOTE | 2017-09-22 09:09 | ED ---
General Adult HPI - General Chief complaint: Chest Pain Stated complaint: TREMORS Time Seen by Provider: 09/22/17 08:30 Source: EMS, RN notes reviewed Mode of arrival: EMS Limitations: no limitations - History of Present Illness Initial comments: This is a 62-year-old male who presents emergency department with past medical history significant for hypertension for which she did not take his medications today. Patient also states he is an alcoholic. Patient states he has yet to drink today. Patient comes in today because he had a pain in his left groin that lasts 1 second and was very sharp in nature. Patient also complains of having a sharp pain in his head that lasts 1 second. Patient complained to triage that he had chest pain but when I asked her about the chest pain he stated that it was only when he coughed. Patient denies any sputum production patient denies being short of breath or difficulty breathing. Patient denies any problems currently. Patient denies abdominal pain patient denies nausea vomiting diarrhea. - Related Data Home Medications Medication Instructions Recorded Confirmed Multivitamin [Men's Multi-Vitamin] 1 tab PO DAILY 09/22/17 09/22/17 Pantoprazole [Protonix] 40 mg PO DAILY 09/22/17 09/22/17 Previous Rx's Medication Instructions Recorded Propranolol [Inderal] 10 mg PO TID #90 tab 04/15/17 Docusate [Colace] 100 mg PO DAILY PRN #20 capsule 08/27/17 Ferrous Sulfate [Feosol] 325 mg PO DAILY #30 tab 08/27/17 Thiamine [Vitamin B-1] 100 mg PO DAILY@1200 #14 tab 08/27/17 Allergies Allergy/AdvReac Type Severity Reaction Status Date / Time adhesive tape Allergy Rash/Hives Verified 09/22/17 08:45 egg AdvReac Nausea & Verified 09/22/17 08:45 Vomiting lisinopril AdvReac EYES Verified 09/22/17 08:45 BURN&ITCH/WEAKNESS tomato AdvReac Nausea & Verified 09/22/17 08:45 Vomiting & Diarrhea Review of Systems ROS Statement: Those systems with pertinent positive or pertinent negative responses have been documented in the HPI. ROS Other: All systems not noted in ROS Statement are negative. Past Medical History Past Medical History: Atrial Fibrillation, Chest Pain / Angina, COPD, CVA/TIA, Diabetes Mellitus, GERD/Reflux, GI Bleed, Hyperlipidemia, Hypertension, Pulmonary Embolus (PE) Additional Past Medical History / Comment(s): Pt recently admitted 07/16/17 with upper GI hemoorhage, blood loss anemia and ETOH abuse. Other hx: Upper and lower GI bleeds/anemia, esophageal varicies/diverticulosis, bilateral ankle edema at times, 2016 bacterial septicemia, TIA, NIDDM type II, 2012, cervical disc disease with neck pain goes into R arm, DDD low back goes into R leg, scoliosis, epilepsy when a child, alcoholic last drank 08/23/17 History of Any Multi-Drug Resistant Organisms: None Reported Past Surgical History: Appendectomy, Cholecystectomy Additional Past Surgical History / Comment(s): 07/20/17 EGD, 03/21/17 EGD/ colonoscopy, other colonoscopies. Past Anesthesia/Blood Transfusion Reactions: Previous Problems w/ Anesthesia Additional Past Anesthesia/Blood Transfusion Reaction / Comment(s): after appendix removed sob Past Psychological History: Anxiety, Depression Smoking Status: Never smoker Past Alcohol Use History: Occasional - Past Family History Mother Family Medical History: COPD, CVA/TIA, Dementia Additional Family Medical History / Comment(s): from a stroke Father Family Medical History: Pneumonia Additional Family Medical History / Comment(s): Father of pneumonia when he was close to 80 yrs old. General Exam - General Exam Comments Initial Comments: GENERAL: Patient is well-developed and well-nourished. Patient is nontoxic and well- hydrated and is in no acute distress. ENT: Neck is soft and supple. No significant lymphadenopathy is noted. Oropharynx is clear. Moist mucous membranes. Neck has full range of motion without eliciting any pain. EYES: The sclera were anicteric and conjunctiva were pink and moist. Extraocular movements were intact and pupils were equal round and reactive to light. Eyelids were unremarkable. PULMONARY: Unlabored respirations. Good breath sounds bilaterally. No audible rales rhonchi or wheezing was noted. CARDIOVASCULAR: There is a regular rate and rhythm without any murmurs gallops or rubs. ABDOMEN: Soft and nontender with normal bowel sounds. No palpable organomegaly was noted. There is no palpable pulsatile mass. SKIN: Skin is clear with no lesions or rashes and otherwise unremarkable. NEUROLOGIC: Patient is alert and oriented x3. Cranial nerves II through XII are grossly intact. Motor and sensory are also intact. Normal speech, volume and content. Symmetrical smile. MUSCULOSKELETAL: Normal extremities with adequate strength and full range of motion. No lower extremity swelling or edema. No calf tenderness. LYMPHATICS: No significant lymphadenopathy is noted PSYCHIATRIC: Normal psychiatric evaluation. Normal interpersonal interactions appears functionally intact in deals appropriately with others. No signs of depression. No signs of anxiety. Limitations: no limitations Course Vital Signs 09/22/17 09/22/17 09/22/17 08:32 08:47 09:36 Temperature 97.2 F L Pulse Rate 116 H 109 H Pulse Rate [ 111 H Radio Journalist ] Respiratory 20 20 Rate Blood Pressure 211/108 182/103 O2 Sat by Pulse 97 97 Oximetry 09/22/17 09/22/17 09/22/17 10:15 11:07 12:12 Temperature Pulse Rate 138 H 124 H 130 H Pulse Rate [ Radio Journalist ] Respiratory 20 18 Rate Blood Pressure 140/81 125/65 135/81 O2 Sat by Pulse 97 95 93 L Oximetry 09/22/17 12:59 Temperature 97.7 F Pulse Rate Pulse Rate [ Radio Journalist ] Respiratory Rate Blood Pressure O2 Sat by Pulse Oximetry Medical Decision Making - Medical Decision Making EKG shows sinus tachycardia at 107 bpm [place] interval 160 QRS is 82 QT interval 368 QTC is 491. Patient's EKG shows no ST segment elevation or depression or T wave abnormalities are noted. I will back into the room to reevaluate the patient and he stated he was symptom -free at this time. Chest x-ray shows no acute abnormality. Computed tomography scan of the chest shows no pulmonary embolism or an acute abnormality. Spoke with Dr. Finney he agreed to admit the patient admitted the patient wrote admitting orders - Lab Data Result diagrams: 09/22/17 09:01 09/22/17 09:01 Lab Results 09/22/17 09/22/17 09/22/17 Range/Units 09:01 09:01 09:01 WBC 3.4 L (3.8-10.6) k/uL RBC 4.18 L (4.30-5.90) m/uL Hgb 11.0 L D (13.0-17.5) gm/dL Hct 35.3 L (39.0-53.0) % MCV 84.4 D (80.0-100.0) fL MCH 26.3 (25.0-35.0) pg MCHC 31.1 (31.0-37.0) g/dL RDW 22.8 H (11.5-15.5) % Plt Count 117 L (150-450) k/uL Neutrophils % 40 % Lymphocytes % 47 % Monocytes % 9 % Eosinophils % 2 % Basophils % 0 % Neutrophils # 1.3 (1.3-7.7) k/uL Lymphocytes # 1.6 (1.0-4.8) k/uL Monocytes # 0.3 (0-1.0) k/uL Eosinophils # 0.1 (0-0.7) k/uL Basophils # 0.0 (0-0.2) k/uL Hypochromasia Moderate Anisocytosis Moderate Microcytosis Slight PT (9.0-12.0) sec INR (<1.2) APTT (22.0-30.0) sec D-Dimer (<0.60) mg/L FEU Sodium 149 H (137-145) mmol/L Potassium 4.0 (3.5-5.1) mmol/L Chloride 108 H (98-107) mmol/L Carbon Dioxide 21 L (22-30) mmol/L Anion Gap 20 mmol/L BUN 10 (9-20) mg/dL Creatinine 0.67 (0.66-1.25) mg/dL Est GFR (CKD-EPI)AfAm >90 (>60 ml/min/1.73 sqM) Est GFR (CKD-EPI)NonAf >90 (>60 ml/min/1.73 sqM) Glucose 116 H (74-99) mg/dL Calcium 8.3 L (8.4-10.2) mg/dL Magnesium 1.5 L (1.6-2.3) mg/dL Total Bilirubin 0.6 (0.2-1.3) mg/dL AST 79 H (17-59) U/L ALT 34 (21-72) U/L Alkaline Phosphatase 105 (38-126) U/L Total Creatine Kinase 184 H (55-170) U/L CK-MB (CK-2) 1.0 (0.0-2.4) ng/mL CK-MB (CK-2) Rel Index 0.5 Troponin I <0.012 (0.000-0.034) ng/mL Total Protein 7.5 (6.3-8.2) g/dL Albumin 3.8 (3.5-5.0) g/dL 09/22/17 Range/Units 09:01 WBC (3.8-10.6) k/uL RBC (4.30-5.90) m/uL Hgb (13.0-17.5) gm/dL Hct (39.0-53.0) % MCV (80.0-100.0) fL MCH (25.0-35.0) pg MCHC (31.0-37.0) g/dL RDW (11.5-15.5) % Plt Count (150-450) k/uL Neutrophils % % Lymphocytes % % Monocytes % % Eosinophils % % Basophils % % Neutrophils # (1.3-7.7) k/uL Lymphocytes # (1.0-4.8) k/uL Monocytes # (0-1.0) k/uL Eosinophils # (0-0.7) k/uL Basophils # (0-0.2) k/uL Hypochromasia Anisocytosis Microcytosis PT 11.4 (9.0-12.0) sec INR 1.2 H (<1.2) APTT 25.2 (22.0-30.0) sec D-Dimer 0.71 H (<0.60) mg/L FEU Sodium (137-145) mmol/L Potassium (3.5-5.1) mmol/L Chloride (98-107) mmol/L Carbon Dioxide (22-30) mmol/L Anion Gap mmol/L BUN (9-20) mg/dL Creatinine (0.66-1.25) mg/dL Est GFR (CKD-EPI)AfAm (>60 ml/min/1.73 sqM) Est GFR (CKD-EPI)NonAf (>60 ml/min/1.73 sqM) Glucose (74-99) mg/dL Calcium (8.4-10.2) mg/dL Magnesium (1.6-2.3) mg/dL Total Bilirubin (0.2-1.3) mg/dL AST (17-59) U/L ALT (21-72) U/L Alkaline Phosphatase (38-126) U/L Total Creatine Kinase (55-170) U/L CK-MB (CK-2) (0.0-2.4) ng/mL CK-MB (CK-2) Rel Index Troponin I (0.000-0.034) ng/mL Total Protein (6.3-8.2) g/dL Albumin (3.5-5.0) g/dL Disposition Clinical Impression: Sinus tachycardia, Alcohol abuse Disposition: ADMITTED IP TO THIS HOSP Referrals: Danuta Marcus DO [Primary Care Provider] - 1-2 days Time of Disposition: 13:03
[2017-09-22 09:20] LABS: Anisocytosis Moderate; Basophils % (A) 0 %; Eosinophils # (A) 0.1 k/uL (0-0.7); Eosinophils % (A) 2 %; HCT 35.3 % (39.0-53.0); Hypochromasia Moderate; Lymphocytes # (A) 1.6 k/uL (1.0-4.8); Lymphocytes % (A) 47 %; MCH 26.3 pg (25.0-35.0); MCHC 31.1 g/dL (31.0-37.0); Mean Platelet Volume 7.9; Microcytosis Slight; Monocytes # (A) 0.3 k/uL (0-1.0); Monocytes % (A) 9 %; Neutrophils # (A) 1.3 k/uL (1.3-7.7); Neutrophils % (A) 40 %; Platelet Count 117 k/uL (150-450); RBC 4.18 m/uL (4.30-5.90); RDW 22.8 % (11.5-15.5); WBC 3.4 k/uL (3.8-10.6)
[2017-09-22] MEDS ORDERED: hydrALAZINE HCL 20 MG/ML 1 ML VIAL IVP STA (09:20)
[2017-09-22] MEDS ORDERED: SODIUM CHLORIDE 0.9% 1,000 ML IV ONE (09:20)
--- NOTE | 2017-09-22 09:21 | XR ---
EXAMINATION TYPE: XR chest 2V DATE OF EXAM: 09/22/2017 COMPARISON: 08/24/2017 TECHNIQUE: PA and lateral views submitted. HISTORY: Left-sided chest pain FINDINGS: The lungs are clear and there is no pneumothorax, pleural effusion, or focal pneumonia. Granuloma i n the left upper lobe noted. The heart size stable. Hypertrophic and degenerative change of the spine . No overt failure. IMPRESSION: 1. No acute process.
[2017-09-22 09:27] LABS: INR 1.2 (<1.2); Partial Thromboplastin Time 25.2 sec (22.0-30.0); Prothrombin Time 11.4 sec (9.0-12.0)
[2017-09-22 09:30] LABS: MCV 84.4 fL (80.0-100.0)
[2017-09-22 09:38] LABS: ALT 34 U/L (21-72); AST 79 U/L (17-59); Albumin 3.8 g/dL (3.5-5.0); Alkaline Phosphatase 105 U/L (38-126); Anion Gap 20 mmol/L; Blood Urea Nitrogen 10 mg/dL (9-20); Calcium 8.3 mg/dL (8.4-10.2); Carbon Dioxide 21 mmol/L (22-30); Chloride 108 mmol/L (98-107); Glucose 116 mg/dL (74-99); Magnesium 1.5 mg/dL (1.6-2.3); Sodium 149 mmol/L (137-145); Total Bilirubin 0.6 mg/dL (0.2-1.3); Total Protein 7.5 g/dL (6.3-8.2)
[2017-09-22] MEDS ORDERED: LORazepam 2 MG/ML INJ IV STA (09:48)
[2017-09-22] MEDS ORDERED: MAGNESIUM SULFATE-D5W PMX 1 GM in DEXTROSE/WATER 1 100ML.BAG IVPB ONE (09:55)
[2017-09-22 10:09] LABS: Creatine Kinase 184 U/L (55-170)
[2017-09-22 10:22] LABS: Troponin I <0.012 ng/mL (0.000-0.034)
[2017-09-22 11:33] LABS: D-Dimer 0.71 mg/L FEU (<0.60)
[2017-09-22] MEDS ORDERED: RX INFO: IV CONTRAST WAS GIVEN 1 EACH MISC MISCELLANE PRN (11:34)
--- NOTE | 2017-09-22 12:20 | CT ---
EXAMINATION TYPE: CT chest angio for PE DATE OF EXAM: 09/22/2017 COMPARISON: CT chest May 17, 2017. HISTORY: Pain from the groin to the chest. CT DLP: 248.8 mGycm. Automated Exposure Control for Dose Reduction was Utilized. CONTRAST: CTA scan of the thorax is performed with IV Contrast, patient injected with 100 mL of Isovue 370, pul monary embolism protocol. MIP Images are created on CT scanner and reviewed. FINDINGS: There is respiratory motion artifact seen making evaluation suboptimal particularly for sub centimeter nodularity. LUNGS: Elevated left hemidiaphragm is redemonstrated. There is left-sided volume loss with peripheral reticulation and fibrosis in the left lung again seen. There is additional reticulonodular periphera l opacities in the posterior aspect right lower lobe redemonstrated. No new consolidation or suspicio us focal groundglass opacity is seen. No parenchymal mass is noted. No pleural effusion or pneumothor ax is identified bilaterally. MEDIASTINUM: There is suboptimal bolus of pulmonary arteries, exam is nondiagnostic for evaluation of pulmonary embolism. More dense contrast is noted in left heart system. There are no greater than 1 c m hilar or mediastinal lymph nodes. No significant pericardial effusion is seen. There is stable mi ld cardiomegaly. There is stable gas prominent distal esophagus. OTHER: Visualized liver is hypodense consistent with fatty infiltration. Cholecystectomy clips are re demonstrated. Prominent left hepatic lobe which is normal variant is again seen. There is moderate to severe multilevel spurring in the thoracic spine. IMPRESSION: 1. Nondiagnostic for pulmonary embolism. 2. Persistent left-sided volume loss with left-sided and right lower lung parenchymal fibrosis. No ne w suspicious acute pulmonary process.
[2017-09-22] MEDS ORDERED: NITROGLYCERIN SL TABS 0.4 MG TAB SUBLINGUAL PRN (13:04)
[2017-09-22] MEDS: SODIUM CHLORIDE 0.9% 1,000 ML IV SCH (13:46)
[2017-09-22 15:48] LABS: Troponin I 0.015 ng/mL (0.000-0.034)
[2017-09-22] MEDS: NADOLOL 20 MG TAB PO SCH (16:10)
[2017-09-22] MEDS ORDERED: LORazepam 2 MG/ML INJ IV PRN (16:35)
[2017-09-22] MEDS ORDERED: DOCUSATE 100 MG CAP PO PRN (16:36)
[2017-09-22] MEDS: ACETAMINOPHEN TAB 325 MG TAB PO PRN (16:46)
[2017-09-22] MEDS: LORazepam 2 MG/ML INJ IV PRN ×3 (16:47→20:49)
[2017-09-22] MEDS: THIAMINE 100 MG TAB PO SCH (18:11)
--- NOTE | 2017-09-22 18:22 | CONS ---
CONSULTATION Mr. Aguilar is a 62-year-old gentleman who is seen for the evaluation of cardiac sinus tachycardia. Patient's emergency room noted. The patient gives a history that he has a history of hypertension, but he is not taking his medications. He also has a history of alcohol abuse. The patient came with some sharp pain in the left side of the chest. The patient is comfortable in the emergency room. The CT scan of the chest was done which was normal. Hemoglobin was normal. The patient's home medications include Protonix and . The patient used to take Inderal 10 mg t.i.d. before but he is not taking it now. PAST MEDICAL HISTORY: Past medical history includes this patient was recently admitted with upper gastrointestinal bleed and blood loss. The patient had a previous stress test done in 2017 which was normal. History of appendicectomy and cholecystectomy. SOCIAL HISTORY: Smoking history, the patient does not smoke. PHYSICAL EXAMINATION: At present reveals a 62-year-old gentleman who does not appear to be in any acute distress. The patient's heart rate is 130 per minute. Blood pressure is 121/62 mmHg. Respiratory rate is 18. Oxygen saturation is 95%. HEENT examination is negative. NECK: Supple. There is no increase in jugular venous pressure. Both the carotid pulses are felt. There is no bruit. Chest is symmetrical. Heart the PMI is not felt. First and second heart sounds are normal. There is no evidence of any murmur. Lungs are clinically clear to auscultation and percussion. Abdomen soft. Liver and spleen are not enlarged. Bowel sounds are heard. Extremities, peripheral pulses are 2+. EKG shows evidence of sinus tachycardia. Patient's hemoglobin is 11 g. Electrolytes are normal. Patient's initial troponin is less than 0.02. IMPRESSION: Sinus tachycardia. The patient says she did not take his cardiac medications since yesterday which could be secondary to the patient had not taken his Inderal. We will try the patient on nadolol 20 mg daily. Echo and Doppler study and TSH will be done. MMPREETHIL / IJN: [id number] /
[2017-09-22 21:38] LABS: Creatine Kinase MB 0.8 ng/mL (0.0-2.4); Troponin I 0.022 ng/mL (0.000-0.034)
[2017-09-23 00:04] LABS: Cholesterol 231 mg/dL (<200); HDL Cholesterol 57 mg/dL (40-60); LDL Cholesterol,Calculated 141 mg/dL (0-99); Triglycerides 166 mg/dL (<150)
[2017-09-23] MEDS: LORazepam 2 MG/ML INJ IV PRN ×2 (03:48→07:45)
[2017-09-23] MEDS: SODIUM CHLORIDE 0.9% 1,000 ML IV SCH ×3 (03:48→19:49)
[2017-09-23] MEDS: ACETAMINOPHEN TAB 325 MG TAB PO PRN ×2 (07:39→20:09)
[2017-09-23] MEDS: ASPIRIN 325 MG TAB PO SCH (07:39)
[2017-09-23] MEDS: NADOLOL 20 MG TAB PO SCH (07:39)
[2017-09-23] MEDS: FERROUS SULFATE 325 MG TAB PO SCH (07:39)
[2017-09-23] MEDS: PANTOPRAZOLE 40 MG TABLET PO SCH (07:40)
[2017-09-23 09:59] LABS: Anisocytosis Moderate; Basophils % (A) 0 %; Eosinophils # (A) 0.1 k/uL (0-0.7); Eosinophils % (A) 3 %; HGB 11.1 gm/dL (13.0-17.5); Hypochromasia Slight; Lymphocytes % (A) 27 %; MCH 25.6 pg (25.0-35.0); MCHC 30.8 g/dL (31.0-37.0); MCV 83.1 fL (80.0-100.0); Mean Platelet Volume 8.4; Microcytosis Slight; Monocytes # (A) 0.3 k/uL (0-1.0); Monocytes % (A) 9 %; Neutrophils # (A) 2.3 k/uL (1.3-7.7); Neutrophils % (A) 60 %; Platelet Count 114 k/uL (150-450); RBC 4.33 m/uL (4.30-5.90); RDW 22.7 % (11.5-15.5); WBC 3.8 k/uL (3.8-10.6)
[2017-09-23 10:16] LABS: ALT 28 U/L (21-72); AST 69 U/L (17-59); Albumin 3.8 g/dL (3.5-5.0); Alkaline Phosphatase 105 U/L (38-126); Anion Gap 13 mmol/L; Blood Urea Nitrogen 9 mg/dL (9-20); Calcium 9.3 mg/dL (8.4-10.2); Carbon Dioxide 27 mmol/L (22-30); Chloride 99 mmol/L (98-107); Glucose 149 mg/dL (74-99); Magnesium 1.5 mg/dL (1.6-2.3); Potassium 3.8 mmol/L (3.5-5.1); Sodium 139 mmol/L (137-145); Total Bilirubin 1.4 mg/dL (0.2-1.3); Total Protein 7.5 g/dL (6.3-8.2)
--- NOTE | 2017-09-23 10:20 | ECHOF ---
Referral Reason:tachycardia MEASUREMENTS -------- HEIGHT: 165.1 cm WEIGHT: 78.9 kg BP: 135/71 RVIDd: 2.6 cm (< 3.3) IVSd: 1.3 cm (0.6 - 1.1) LVIDd: 4.6 cm (3.9 - 5.3) LVPWd: 1.3 cm (0.6 - 1.1) IVSs: 1.7 cm LVIDs: 3.6 cm LVPWs: 1.7 cm LAESV Index (A-L): 36.51 ml/m Ao Diam: 3.4 cm (2.0 - 3.7) AV Cusp: 2.0 cm (1.5 - 2.6) LA Diam: 2.9 cm (2.7 - 3.8) EPSS: 1.0 cm MV EF SLOPE: 179.55 mm/s (70 - 150) MV EXCURSION: 1.61 cm (> 18.000) FINDINGS -------- Resting tachycardia (HR>100bpm). This was a technically good study. The left ventricular size is normal. There is mild concentric left ventricular hypertrophy. Overa ll left ventricular systolic function is normal with, an EF between 60 - 65 %. The right ventricle is normal in size and function. LA is moderately dilated 34-39 ml/m2 The right atrium is normal in size. The aortic valve is trileaflet, and appears structurally normal. No aortic stenosis or regurgitation. The mitral valve leaflets are mildly thickened. Mild mitral regurgitation is present. Trace tricuspid regurgitation present. Right ventricular systolic pressure is normal at < 35 mmHg. There is no evidence of pulmonary hypertension. Trace/mild (physiologic) pulmonic regurgitation. The aortic root size is normal. Normal inferior vena cava with normal inspiratory collapse consistent with estimated right atrial pre ssure of 5 mmHg. There is no pericardial effusion. CONCLUSIONS -------- 1. Resting tachycardia (HR>100bpm). 2. This was a technically good study. 3. The left ventricular size is normal. 4. There is mild concentric left ventricular hypertrophy. 5. Overall left ventricular systolic function is normal with, an EF between 60 - 65 %. 6. LA is moderately dilated 34-39 ml/m2 7. The aortic valve is trileaflet, and appears structurally normal. No aortic stenosis or regurgitati on. 8. The mitral valve leaflets are mildly thickened. 9. Mild mitral regurgitation is present. 10. Trace tricuspid regurgitation present. 11. Right ventricular systolic pressure is normal at < 35 mmHg. 12. There is no evidence of pulmonary hypertension. 13. Trace/mild (physiologic) pulmonic regurgitation. 14. The aortic root size is normal. 15. There is no pericardial effusion. [employer] DIRECTOR: Diego Landry RDCS
[2017-09-23] MEDS: THIAMINE 100 MG TAB PO SCH ×2 (11:35→16:51)
[2017-09-23] MEDS: MULTIVITAMINS, THERA 1 EACH TAB PO SCH (11:35)
[2017-09-23] MEDS: INSULIN ASPART 100 UNIT/ML 1 ML 10 ML VIAL SQ SCH ×2 (11:51→17:42)
[2017-09-23 12:09] LABS: Glucose,Whole Blood 102 mg/dL (75-99)
--- NOTE | 2017-09-23 13:02 | P.HPIM ---
History of Present Illness H&P Date: 09/23/17 Chief Complaint: Left groin pain that radiated to his chest This is a 62-year-old male, patient of Dr. Lane. He has a known past medical history of hypertension, atrial fibrillation, COPD, TIA diabetes mellitus, hyperlipidemia, PE and esophageal varices with GI bleed in the past. Patient also has a history of alcohol abuse. Patient presents to the emergency room with complaints of a left groin pain that was sharp and stabbing radiating up into the chest. Symptoms last for a few seconds and then resolved. Presents to the emergency room for further evaluation and treatment. He had elevated blood pressure 211/108 and was tachycardic with a heart rate 130s. Patient not taking his blood pressure medication at home. Patient was seen by cardiology and they have added Marilyn. Patient is also receiving the [facility] protocol for alcohol withdrawal. He still having some tremors and anxiety. Troponins are negative 3 sets. TSH was normal. EKG on admission shows sinus tach with a heart rate of 107. D-dimer elevated CTA was negative for PE. Chest x-ray negative. Patient denies any nausea vomiting, denies any fever or chills or sweats. Denies any bowel movement changes or urinary symptoms. Denies any shortness of breath. No hematuria. No history of kidney stones. Review of Systems Please refer to HPI otherwise unremarkable Past Medical History Past Medical History: Atrial Fibrillation, Chest Pain / Angina, COPD, CVA/TIA, Diabetes Mellitus, GERD/Reflux, GI Bleed, Hyperlipidemia, Hypertension, Pulmonary Embolus (PE) Additional Past Medical History / Comment(s): Upper and lower GI bleeds/anemia, esophageal varicies/diverticulosis, bilateral ankle edema at times, 2016 bacterial septicemia, TIA, NIDDM type II, 2012, cervical disc disease with neck pain goes into R arm, DDD low back goes into R leg, scoliosis, epilepsy when a child, alcoholic last drank 09/21/17 History of Any Multi-Drug Resistant Organisms: None Reported Past Surgical History: Appendectomy, Cholecystectomy Additional Past Surgical History / Comment(s): 07/20/17 EGD, 03/21/17 EGD/ colonoscopy, other colonoscopies. Past Anesthesia/Blood Transfusion Reactions: Previous Problems w/ Anesthesia Additional Past Anesthesia/Blood Transfusion Reaction / Comment(s): after appendix removed sob Smoking Status: Never smoker - Past Family History Mother Family Medical History: COPD, CVA/TIA, Dementia Additional Family Medical History / Comment(s): from a stroke Father Family Medical History: Pneumonia Additional Family Medical History / Comment(s): Father of pneumonia when he was close to 80 yrs old. Medications and Allergies Home Medications Medication Instructions Recorded Confirmed Type Propranolol [Inderal] 10 mg PO TID #90 tab 04/15/17 09/22/17 Rx Docusate [Colace] 100 mg PO DAILY PRN #20 capsule 08/27/17 09/22/17 Rx Ferrous Sulfate [Feosol] 325 mg PO DAILY #30 tab 08/27/17 09/22/17 Rx Thiamine [Vitamin B-1] 100 mg PO DAILY@1200 #14 tab 08/27/17 09/22/17 Rx Multivitamin [Men's Multi-Vitamin] 1 tab PO DAILY 09/22/17 09/22/17 History Pantoprazole [Protonix] 40 mg PO DAILY 09/22/17 09/22/17 History metFORMIN HCL 1,000 mg PO BID 09/23/17 09/23/17 History Allergies Allergy/AdvReac Type Severity Reaction Status Date / Time adhesive tape Allergy Rash/Hives Verified 09/22/17 08:45 egg AdvReac Nausea & Verified 09/22/17 08:45 Vomiting lisinopril AdvReac EYES Verified 09/22/17 08:45 BURN&ITCH/WEAKNESS tomato AdvReac Nausea & Verified 09/22/17 08:45 Vomiting & Diarrhea Physical Exam Vitals: Vital Signs Temp Pulse Pulse Pulse Resp BP BP 09/23/17 12:00 98.4 F 98 18 146/90 09/23/17 08:00 104 H 18 09/23/17 07:38 97 F L 104 H 18 134/86 09/23/17 04:00 66 96 20 164/91 09/23/17 03:42 91 20 192/110 09/23/17 00:00 66 98 18 09/22/17 20:00 97.7 F 66 98 18 148/86 09/22/17 15:33 97 F L 66 130 H 18 121/62 09/22/17 14:37 97.7 F 136 H 22 135/71 09/22/17 14:00 135 H 20 147/64 09/22/17 12:59 97.7 F Pulse Ox 09/23/17 12:00 99 09/23/17 08:00 09/23/17 07:38 96 09/23/17 04:00 09/23/17 03:42 96 09/23/17 00:00 09/22/17 20:00 94 L 09/22/17 15:33 95 09/22/17 14:37 100 09/22/17 14:00 97 09/22/17 12:59 Intake and Output 09/22/17 09/23/17 09/23/17 22:59 06:59 14:59 Intake Total 100 700 Balance 100 700 Intake: IV 100 Sodium Chloride 0.9% 1, 100 000 ml @ 100 mls/hr IV . Q10H TANYA Rx#:[id number] Intake, IV Titration 400 Amount Sodium Chloride 0.9% 1, 400 000 ml @ 100 mls/hr IV . Q10H TANYA Rx#:[id number] Oral 300 Other: Weight 77.6 kg Head normocephalic Neck supple Lungs clear to auscultation bilaterally no wheezing or crackles Heart regular rate and rhythm S1-S2, no rub or gallop Abdomen is soft nontender nondistended positive bowel sounds no hepatosplenomegaly Extremities no edema area did no hernia palpated in the left groin. No discoloration no bulge. Neuro alert and orientated to 3 Results CBC & Chem 7: 09/23/17 09:41 09/23/17 09:41 Labs: Abnormal Lab Results - Last 24 Hours (Table) 09/22/17 09/23/17 09/23/17 Range/Units 09:01 09:41 09:41 Hgb 11.1 L (13.0-17.5) gm/dL Hct 36.0 L (39.0-53.0) % MCHC 30.8 L (31.0-37.0) g/dL RDW 22.7 H (11.5-15.5) % Plt Count 114 L (150-450) k/uL Glucose 149 H (74-99) mg/dL POC Glucose (mg/dL) (75-99) mg/dL Magnesium 1.5 L (1.6-2.3) mg/dL Total Bilirubin 1.4 H (0.2-1.3) mg/dL AST 69 H (17-59) U/L Triglycerides 166 H (<150) mg/dL Cholesterol 231 H (<200) mg/dL LDL Cholesterol, Calc 141 H (0-99) mg/dL 09/23/17 Range/Units 11:41 Hgb (13.0-17.5) gm/dL Hct (39.0-53.0) % MCHC (31.0-37.0) g/dL RDW (11.5-15.5) % Plt Count (150-450) k/uL Glucose (74-99) mg/dL POC Glucose (mg/dL) 102 H (75-99) mg/dL Magnesium (1.6-2.3) mg/dL Total Bilirubin (0.2-1.3) mg/dL AST (17-59) U/L Triglycerides (<150) mg/dL Cholesterol (<200) mg/dL LDL Cholesterol, Calc (0-99) mg/dL Thrombosis Risk Factor Assmnt - Choose All That Apply Any of the Below Risk Factors Present?: Yes Each Factor Represents 1 point: Abnormal pulmonary function (COPD), Obesity ( BMI >25) Other Risk Factors: Yes Each Risk Factor Represents 2 Points: Age 61-74 years Other congenital or acquired thrombophilia - If yes, enter type in comment: No Thrombosis Risk Factor Assessment Total Risk Factor Score: 4 Thrombosis Risk Factor Assessment Level: Moderate Risk Assessment and Plan Assessment: 1. Left groin pain with radiation to the chest. Troponins are negative 3. EKG sinus tachycardia with a heart rate of 107. Symptoms have resolved. Patient seen by cardiology. Also will check a urinalysis to monitor for any hematuria. Left groin pain is likely more musculoskeletal. No evidence on hernia on exam. Elevated d-dimer with CTA negative for PE 2. Sinus tachycardia with a heart rate ranging into the 130s. Patient had not taken his medication at home. Cardiology has added Corgard. Heart rate and blood pressure are showing improvement. TSH normal 3. Hypertensive urgency patient did require IV hydralazine in the ER. Corgard added by cardiology. Patient didn't take his home BP meds this morning 4. Alcohol with evidence of alcohol withdrawal: Patient on the CIWA protocol continue thiamine and multivitamin 5. Hypomagnesemia: Magnesium still 1.5 after supplement. We'll give another gram of magnesium sulfate. Repeat magnesium level in a.m. 6. Hypernatremia present on admission now resolved 7. History of esophageal varices with previous bleeding in July 2017 8. History of essential hypertension 9. Diabetes mellitus type 2 resume metformin and add sliding scale coverage 10. History of PE not on anticoagulation due to bleeding esophageal varices 11. History of TIA GI prophylaxis Protonix and DVT prophylaxis SCDs. Patient not a candidate for anticoagulation due to previous GI bleed Time with Patient: Greater than 30 (Greater than 50% of the total time spent in counseling and coordination of care. I performed an examination of the patient and discussed their management with the physician Webfocus Developer. I have reviewed the Physician Webfocus Developer's notes and agree with the documented findings and plan of care)
[2017-09-23] MEDS ORDERED: MAGNESIUM SULFATE-D5W PMX 1 GM in DEXTROSE/WATER 1 100ML.BAG IVPB ONE (14:00)
--- NOTE | 2017-09-23 14:00 | P.PN ---
Subjective This patient is a feeling well. Denies any chest pain. His since echocardiogram shows normal left ventricular systolic function. Rate is improved. We will recommend to continue the patient on beta madeline. Objective - Vital Signs Vital signs: Vital Signs Temp 98.4 F 09/23/17 12:00 Pulse 98 09/23/17 12:00 Resp 18 09/23/17 12:00 BP 146/90 09/23/17 12:00 Pulse Ox 99 09/23/17 12:00 Intake & Output 09/22/17 09/23/17 09/23/17 18:59 06:59 18:59 Intake Total 100 700 Balance 100 700 Weight 78.925 kg 77.6 kg Intake: IV 100 Sodium Chloride 0.9% 1, 100 000 ml @ 100 mls/hr IV . Q10H TANYA Rx#:[id number] Intake, IV Titration 400 Amount Sodium Chloride 0.9% 1, 400 000 ml @ 100 mls/hr IV . Q10H TANYA Rx#:[id number] Oral 300 - Exam Patient's vital signs are reviewed. The patient is alert awake and in no acute distress. HEENT negative. Neck-supple no increase in JVP noted no carotid bruits noted. Chest-symmetrical. Heart-first and second heart sounds are normal. No S3 or S4 is noted. No significant murmurs are noted. Lungs bilateral good at entry is noted. No rales or rhonchi are noted Abdomen-soft. Liver and spleen are not enlarged. The bowel sounds are normal. No tenderness noted Extremities-peripheral pulses since are 2+. No significant leg edema noted. Neuro-no significant gross abnormality noted. - Labs CBC & Chem 7: 09/23/17 09:41 09/23/17 09:41 Labs: Abnormal Lab Results - Last 24 Hours (Table) 09/22/17 09/23/17 09/23/17 Range/Units 09:01 09:41 09:41 Hgb 11.1 L (13.0-17.5) gm/dL Hct 36.0 L (39.0-53.0) % MCHC 30.8 L (31.0-37.0) g/dL RDW 22.7 H (11.5-15.5) % Plt Count 114 L (150-450) k/uL Glucose 149 H (74-99) mg/dL POC Glucose (mg/dL) (75-99) mg/dL Magnesium 1.5 L (1.6-2.3) mg/dL Total Bilirubin 1.4 H (0.2-1.3) mg/dL AST 69 H (17-59) U/L Triglycerides 166 H (<150) mg/dL Cholesterol 231 H (<200) mg/dL LDL Cholesterol, Calc 141 H (0-99) mg/dL 09/23/17 Range/Units 11:41 Hgb (13.0-17.5) gm/dL Hct (39.0-53.0) % MCHC (31.0-37.0) g/dL RDW (11.5-15.5) % Plt Count (150-450) k/uL Glucose (74-99) mg/dL POC Glucose (mg/dL) 102 H (75-99) mg/dL Magnesium (1.6-2.3) mg/dL Total Bilirubin (0.2-1.3) mg/dL AST (17-59) U/L Triglycerides (<150) mg/dL Cholesterol (<200) mg/dL LDL Cholesterol, Calc (0-99) mg/dL Assessment and Plan Assessment: This patient's the pain in the chest is atypical sinus tachycardia is improved continue the current medications
[2017-09-23 15:13] LABS: Appearance,Urine Clear (Clear); Bilirubin,Urine Negative (Negative); Blood,Urine Negative (Negative); Color,Urine Light Yellow; Glucose,Urine (UA) Negative (Negative); Ketones,Urine Negative (Negative); Leukocyte Esterase,Urine Negative (Negative); Nitrite,Urine Negative (Negative); PH, Urine 7.5 (5.0-8.0); Protein,Urine Negative (Negative); Specific Gravity,Urine 1.003 (1.001-1.035); Urobilinogen,Urine <2.0 mg/dL (<2.0)
[2017-09-23] MEDS: metFORMIN 500 MG TAB PO SCH (16:51)
[2017-09-23 17:15] LABS: Hemoglobin A1C 4.9 % (4.0-6.0)
[2017-09-23 17:24] LABS: Glucose,Whole Blood 111 mg/dL (75-99)
[2017-09-23 21:04] LABS: Glucose,Whole Blood 151 mg/dL (75-99)
[2017-09-24] MEDS: INSULIN ASPART 100 UNIT/ML 1 ML 10 ML VIAL SQ SCH ×3 (00:39→11:25)
[2017-09-24 06:01] LABS: Glucose,Whole Blood 108 mg/dL (75-99)
[2017-09-24 06:46] LABS: Anisocytosis Moderate; Basophils % (A) 0 %; Eosinophils # (A) 0.1 k/uL (0-0.7); Eosinophils % (A) 3 %; HCT 35.3 % (39.0-53.0); HGB 11.1 gm/dL (13.0-17.5); Hypochromasia Slight; Lymphocytes # (A) 1.2 k/uL (1.0-4.8); Lymphocytes % (A) 32 %; MCH 26.3 pg (25.0-35.0); MCHC 31.4 g/dL (31.0-37.0); MCV 83.5 fL (80.0-100.0); Mean Platelet Volume 8.1; Microcytosis Slight; Monocytes # (A) 0.2 k/uL (0-1.0); Monocytes % (A) 6 %; Neutrophils # (A) 2.1 k/uL (1.3-7.7); Neutrophils % (A) 57 %; Platelet Count 107 k/uL (150-450); RBC 4.23 m/uL (4.30-5.90); RDW 21.9 % (11.5-15.5); WBC 3.7 k/uL (3.8-10.6)
[2017-09-24 06:58] LABS: ALT 31 U/L (21-72); AST 62 U/L (17-59); Albumin 3.7 g/dL (3.5-5.0); Alkaline Phosphatase 100 U/L (38-126); Anion Gap 15 mmol/L; Blood Urea Nitrogen 11 mg/dL (9-20); Calcium 8.5 mg/dL (8.4-10.2); Carbon Dioxide 23 mmol/L (22-30); Chloride 104 mmol/L (98-107); Glucose 99 mg/dL (74-99); Magnesium 1.4 mg/dL (1.6-2.3); Potassium 3.7 mmol/L (3.5-5.1); Sodium 142 mmol/L (137-145); Total Bilirubin 0.7 mg/dL (0.2-1.3); Total Protein 7.1 g/dL (6.3-8.2)
[2017-09-24] MEDS: metFORMIN 500 MG TAB PO SCH (08:13)
[2017-09-24] MEDS: PANTOPRAZOLE 40 MG TABLET PO SCH (08:13)
[2017-09-24] MEDS: FERROUS SULFATE 325 MG TAB PO SCH (08:13)
[2017-09-24] MEDS: ASPIRIN 325 MG TAB PO SCH (08:13)
[2017-09-24] MEDS: NADOLOL 20 MG TAB PO SCH (08:14)
[2017-09-24 08:15] VITALS: TEMP 97.1
[2017-09-24] MEDS: MAGNESIUM SULFATE-D5W PMX 1 GM in DEXTROSE/WATER 1 100ML.BAG IVPB SCH ×2 (10:20→11:25)
[2017-09-24] MEDS: MULTIVITAMINS, THERA 1 EACH TAB PO SCH (11:22)
[2017-09-24] MEDS: THIAMINE 100 MG TAB PO SCH (11:22)
[2017-09-24] MEDS: SODIUM CHLORIDE 0.9% 1,000 ML IV SCH (11:24)
[2017-09-24 11:26] LABS: Glucose,Whole Blood 109 mg/dL (75-99)
--- NOTE | 2017-09-24 13:37 | P.DS ---
Providers Date of admission: 09/22/17 13:05 Expected date of discharge: 09/24/17 Attending physician: Charlette Finney Consults: 09/22/17 13:05 Consult Physician Urgent Consulting Provider: [facility] Consult Reason/Comments: Sinus tachycardia Do you want consulting provider notified?: Yes Primary care physician: [facility] Course: Discharge diagnosis 1. Left groin pain with radiation to the chest. Troponins are negative 3. EKG sinus tachycardia with a heart rate of 107. Symptoms have resolved. Patient seen by cardiology. Also will check a urinalysis to monitor for any hematuria. Left groin pain is likely more musculoskeletal. No evidence on hernia on exam. Elevated d-dimer with CTA negative for PE 2. Sinus tachycardia with a heart rate ranging into the 130s. Patient had not taken his medication at home. Cardiology has added Corgard. Heart rate and blood pressure are showing improvement. TSH normal 3. Hypertensive urgency patient did require IV hydralazine in the ER. Corgard added by cardiology. Patient didn't take his home BP meds this morning 4. Alcohol with evidence of alcohol withdrawal: Patient on the CIWA protocol continue thiamine and multivitamin 5. Hypomagnesemia: Magnesium still 1.5 after supplement. We'll give another gram of magnesium sulfate. Repeat magnesium level in a.m. 6. Hypernatremia present on admission now resolved 7. History of esophageal varices with previous bleeding in July 2017 8. History of essential hypertension 9. Diabetes mellitus type 2 resume metformin and add sliding scale coverage 10. History of PE not on anticoagulation due to bleeding esophageal varices 11. History of TIA Hospital course This is a 62-year-old male, patient of Dr. Lane. He has a known past medical history of hypertension, atrial fibrillation, COPD, TIA diabetes mellitus, hyperlipidemia, PE and esophageal varices with GI bleed in the past. Patient also has a history of alcohol abuse. Patient presents to the emergency room with complaints of a left groin pain that was sharp and stabbing radiating up into the chest. Symptoms last for a few seconds and then resolved. Presents to the emergency room for further evaluation and treatment. He had elevated blood pressure 211/108 and was tachycardic with a heart rate 130s. Patient not taking his blood pressure medication at home. Patient was seen by cardiology and they have added Corgard. Patient is also receiving the [facility] protocol for alcohol withdrawal. He still having some tremors and anxiety. Troponins are negative 3 sets. TSH was normal. EKG on admission shows sinus tach with a heart rate of 107. D-dimer elevated CTA was negative for PE. Chest x-ray negative. Patient denies any nausea vomiting, denies any fever or chills or sweats. Denies any bowel movement changes or urinary symptoms. Denies any shortness of breath. No hematuria. No history of kidney stones. Patient's blood pressure heart rate has improved with the addition of the Corgard. Patient was seen by cardiology they have cleared him for discharge. Likely his chest pain is more musculoskeletal. Pain is resolved troponins were negative and EKG did not show any ST changes. Patient has been educated to cut back on his alcohol use. He is medically stable for discharge. Also note that magnesium at discharge is 1.4 and he will be given magnesium oxide 400 mg daily. Recommend that he follows up with his PCP in 1 week. Also note that the echo showed an EF of 60-65% no significant valvular abnormality. I performed an examination of the patient and discussed their management with the physician Marketing Services Rep. I have reviewed the Physician Marketing Services Rep's notes and agree with the documented findings and plan of care Patient Condition at Discharge: Stable Plan - Discharge Summary Discharge Rx Participant: No New Discharge Prescriptions: New Multivitamins, Thera [Multivitamin (formulary)] 1 each PO DAILY@1200 #30 tab Nadolol [Corgard] 20 mg PO DAILY #30 tab Magnesium Oxide 400 mg PO DAILY #30 tablet Continue Docusate [Colace] 100 mg PO DAILY PRN #20 capsule PRN Reason: Constipation Ferrous Sulfate [Feosol] 325 mg PO DAILY #30 tab Thiamine [Vitamin B-1] 100 mg PO DAILY@1200 #14 tab Multivitamin [Men's Multi-Vitamin] 1 tab PO DAILY Pantoprazole [Protonix] 40 mg PO DAILY metFORMIN HCL 1,000 mg PO BID Discontinued Propranolol [Inderal] 10 mg PO TID #90 tab Discharge Medication List Docusate [Colace] 100 mg PO DAILY PRN #20 capsule 08/27/17 [Rx] Ferrous Sulfate [Feosol] 325 mg PO DAILY #30 tab 08/27/17 [Rx] Thiamine [Vitamin B-1] 100 mg PO DAILY@1200 #14 tab 08/27/17 [Rx] Multivitamin [Men's Multi-Vitamin] 1 tab PO DAILY 09/22/17 [History] Pantoprazole [Protonix] 40 mg PO DAILY 09/22/17 [History] metFORMIN HCL 1,000 mg PO BID 09/23/17 [History] Magnesium Oxide 400 mg PO DAILY #30 tablet 09/24/17 [Rx] Multivitamins, Thera [Multivitamin (formulary)] 1 each PO DAILY@1200 #30 tab 04/03 [Rx] Nadolol [Corgard] 20 mg PO DAILY #30 tab 09/24/17 [Rx] Follow up Appointment(s)/Referral(s): Michael Amaya PAC [Family Provider] - 1 Week Og Cotto MD [STAFF PHYSICIAN] - 1 Week Activity/Diet/Wound Care/Special Instructions: Diet: cardiac Activity: as tolerated Discharge Disposition: HOME SELF-CARE
[2017-09-24 14:41] VITALS: BP 152/95; RESP 18
[2017-09-24 14:48] VITALS: PULSE 85
[2017-09-24 16:32] LABS: Glucose,Whole Blood 99 mg/dL (75-99)
== END 2017-09-24 17:53 | disposition home or self-care (01) | DRG 313 ==
LOC: EC 08:22 → 6SEL 13:05
PROVIDERS: ADMIT Internal Medicine; ATTEND Internal Medicine
DX: R07.89 Other chest pain (principal); F10.239 Alcohol dependence with withdrawal, unspecified; E87.0 Hyperosmolality and hypernatremia; R00.0 Tachycardia, unspecified; R79.1 Abnormal coagulation profile; I16.0 Hypertensive urgency; E83.42 Hypomagnesemia; I10 Essential (primary) hypertension; E66.9 Obesity, unspecified; E11.9 Type 2 diabetes mellitus without complications; J44.9 Chronic obstructive pulmonary disease, unspecified; E78.5 Hyperlipidemia, unspecified; I48.91 Unspecified atrial fibrillation; K21.9 Gastro-esophageal reflux disease without esophagitis; M50.10 Cervical disc disorder with radiculopathy, unspecified cervical region; M41.9 Scoliosis, unspecified; F41.9 Anxiety disorder, unspecified; F32.9 Major depressive disorder, single episode, unspecified; T44.7X6A Underdosing of beta-adrenoreceptor antagonists, initial encounter; Z86.73 Personal history of transient ischemic attack (TIA), and cerebral infarction without residual deficits; Z82.5 Family history of asthma and other chronic lower respiratory diseases; Z82.3 Family history of stroke; Z88.8 Allergy status to other drugs, medicaments and biological substances; Z81.8 Family history of other mental and behavioral disorders; Z79.899 Other long term (current) drug therapy; Z68.28 Body mass index [BMI] 28.0-28.9, adult; Z91.012 Allergy to eggs; Z79.84 Long term (current) use of oral hypoglycemic drugs; Z91.048 Other nonmedicinal substance allergy status; Z87.891 Personal history of nicotine dependence; Z90.49 Acquired absence of other specified parts of digestive tract; Z90.89 Acquired absence of other organs; Z86.711 Personal history of pulmonary embolism
CPT/HCPCS: 36415; 71046; 71275; 80053; 80061; 81003; 82550; 82553; 83036; 83735; 84443; 84484; 85025; 85379; 85610; 85730; 93005; 93306; 96361; 96365; 96375; 99285

== ENCOUNTER 2017-10-09 10:33 | Observation (INO) | payer OTHER ==
[2017-10-09] MEDS ORDERED: NADOLOL 20 MG TAB PO STA (11:03)
[2017-10-09] MEDS ORDERED: ASPIRIN 81 MG PO STA (11:03)
[2017-10-09] MEDS ORDERED: NITROGLYCERIN OINT 1 INCH/GM PACKET TOPICAL STA (11:03)
--- NOTE | 2017-10-09 11:11 | ED ---
General Adult HPI - General Chief complaint: Chest Pain Stated complaint: Chest discomfort Time Seen by Provider: 10/09/17 10:44 Source: patient, EMS, RN notes reviewed Mode of arrival: EMS Limitations: no limitations - History of Present Illness Initial comments: Patient is a pleasant [age]-year-old male presenting to the emergency Department with complaints of chest discomfort. Patient did have palpitations this morning. Patient felt his heart was skipping. Patient states that has resolved. Patient only has mild pressure in his chest this time. Patient had associated dyspnea that is also resolved. Patient has had nausea and dry heaves. Patient felt sweaty this morning. Patient did have similar symptoms years ago however was evaluated with reported negative workup. - Related Data Home Medications Medication Instructions Recorded Confirmed Pantoprazole [Protonix] 40 mg PO DAILY 09/22/17 10/09/17 metFORMIN HCL 1,000 mg PO BID 09/23/17 10/09/17 Previous Rx's Medication Instructions Recorded Docusate [Colace] 100 mg PO DAILY PRN #20 capsule 08/27/17 Ferrous Sulfate [Feosol] 325 mg PO DAILY #30 tab 08/27/17 Magnesium Oxide 400 mg PO DAILY #30 tablet 09/24/17 Nadolol [Corgard] 20 mg PO DAILY #30 tab 09/24/17 Allergies Allergy/AdvReac Type Severity Reaction Status Date / Time adhesive tape Allergy Rash/Hives Verified 10/09/17 10:44 egg AdvReac Nausea & Verified 10/09/17 10:44 Vomiting lisinopril AdvReac EYES Verified 10/09/17 10:44 BURN&ITCH/WEAKNESS tomato AdvReac Nausea & Verified 10/09/17 10:44 Vomiting & Diarrhea Review of Systems ROS Statement: Those systems with pertinent positive or pertinent negative responses have been documented in the HPI. ROS Other: All systems not noted in ROS Statement are negative. Constitutional: Denies: fever Eyes: Denies: eye pain ENT: Denies: ear pain Respiratory: Reports: dyspnea. Denies: cough Cardiovascular: Reports: chest pain, palpitations Endocrine: Denies: fatigue Gastrointestinal: Reports: nausea. Denies: abdominal pain Genitourinary: Denies: dysuria Musculoskeletal: Denies: back pain Skin: Denies: rash Neurological: Denies: weakness Past Medical History Past Medical History: Atrial Fibrillation, Chest Pain / Angina, COPD, CVA/TIA, Diabetes Mellitus, GERD/Reflux, GI Bleed, Hyperlipidemia, Hypertension, Pulmonary Embolus (PE) Additional Past Medical History / Comment(s): Upper and lower GI bleeds/anemia, esophageal varicies/diverticulosis, bilateral ankle edema at times, 2016 bacterial septicemia, TIA, NIDDM type II, 2012, cervical disc disease with neck pain goes into R arm, DDD low back goes into R leg, scoliosis, epilepsy when a child, alcoholic last drank 10/06/17 History of Any Multi-Drug Resistant Organisms: None Reported Past Surgical History: Appendectomy, Cholecystectomy Additional Past Surgical History / Comment(s): 07/20/17 EGD, 03/21/17 EGD/ colonoscopy, other colonoscopies. Past Anesthesia/Blood Transfusion Reactions: Previous Problems w/ Anesthesia Additional Past Anesthesia/Blood Transfusion Reaction / Comment(s): after appendix removed sob Past Psychological History: Anxiety, Depression Smoking Status: Never smoker Past Alcohol Use History: Abuse, Heavy - Past Family History Mother Family Medical History: COPD, CVA/TIA, Dementia Additional Family Medical History / Comment(s): from a stroke Father Family Medical History: Pneumonia Additional Family Medical History / Comment(s): Father of pneumonia when he was close to 80 yrs old. General Exam Limitations: no limitations General appearance: alert, in no apparent distress Head exam: Present: atraumatic Eye exam: Present: normal appearance, PERRL ENT exam: Present: normal oropharynx Neck exam: Present: normal inspection Respiratory exam: Present: normal lung sounds bilaterally. Absent: chest wall tenderness Cardiovascular Exam: Present: regular rate, normal rhythm Expanded Peripheral pulses: 2+: Radial (R), Radial (L), Posterior Tibialis (R), Posterior Tibialis (L) GI/Abdominal exam: Present: soft. Absent: tenderness Extremities exam: Present: normal inspection. Absent: pedal edema, calf tenderness Neurological exam: Present: alert Psychiatric exam: Present: normal affect, normal mood Skin exam: Present: normal color Course Vital Signs 10/09/17 10/09/17 10:35 11:03 Temperature 97.6 F Pulse Rate 88 91 Respiratory 18 18 Rate Blood Pressure 197/105 178/96 O2 Sat by Pulse 100 94 L Oximetry EKG Findings - EKG Comments: EKG Findings:: Normal sinus rhythm 87. PA 136. QRS 76. QT 392. QTC 471. Left axis. LVH criteria. Nonspecific T waves. Medical Decision Making - Medical Decision Making Patient reevaluated and resting comfortably in bed. Patient symptom-free at this time. Patient updated on results and plan. Dr. purvis has been paged for admission for hospital call. - Lab Data Result diagrams: 10/09/17 10:55 10/09/17 10:55 Lab Results 10/09/17 10/09/17 10/09/17 Range/Units 10:55 10:55 10:55 WBC 3.1 L (3.8-10.6) k/uL RBC 4.27 L (4.30-5.90) m/uL Hgb 11.8 L (13.0-17.5) gm/dL Hct 36.1 L (39.0-53.0) % MCV 84.5 (80.0-100.0) fL MCH 27.6 (25.0-35.0) pg MCHC 32.7 (31.0-37.0) g/dL RDW 22.6 H (11.5-15.5) % Plt Count 174 D (150-450) k/uL Neutrophils % 44 % Lymphocytes % 40 % Monocytes % 9 % Eosinophils % 3 % Basophils % 1 % Neutrophils # 1.4 (1.3-7.7) k/uL Lymphocytes # 1.3 (1.0-4.8) k/uL Monocytes # 0.3 (0-1.0) k/uL Eosinophils # 0.1 (0-0.7) k/uL Basophils # 0.0 (0-0.2) k/uL Anisocytosis Moderate Microcytosis Slight PT (9.0-12.0) sec INR (<1.2) APTT (22.0-30.0) sec D-Dimer (<0.60) mg/L FEU Sodium 146 H (137-145) mmol/L Potassium 4.2 (3.5-5.1) mmol/L Chloride 104 (98-107) mmol/L Carbon Dioxide 24 (22-30) mmol/L Anion Gap 18 mmol/L BUN 13 (9-20) mg/dL Creatinine 0.76 (0.66-1.25) mg/dL Est GFR (CKD-EPI)AfAm >90 (>60 ml/min/1.73 sqM) Est GFR (CKD-EPI)NonAf >90 (>60 ml/min/1.73 sqM) Glucose 123 H (74-99) mg/dL Calcium 9.6 (8.4-10.2) mg/dL Magnesium 1.4 L (1.6-2.3) mg/dL Total Bilirubin 0.4 (0.2-1.3) mg/dL AST 101 H (17-59) U/L ALT 66 (21-72) U/L Alkaline Phosphatase 95 (38-126) U/L Total Creatine Kinase 112 (55-170) U/L CK-MB (CK-2) 0.5 (0.0-2.4) ng/mL CK-MB (CK-2) Rel Index 0.4 Troponin I <0.012 (0.000-0.034) ng/mL NT-Pro-B Natriuret Pep pg/mL Total Protein 7.7 (6.3-8.2) g/dL Albumin 4.0 (3.5-5.0) g/dL 10/09/17 10/09/17 Range/Units 10:55 10:55 WBC (3.8-10.6) k/uL RBC (4.30-5.90) m/uL Hgb (13.0-17.5) gm/dL Hct (39.0-53.0) % MCV (80.0-100.0) fL MCH (25.0-35.0) pg MCHC (31.0-37.0) g/dL RDW (11.5-15.5) % Plt Count (150-450) k/uL Neutrophils % % Lymphocytes % % Monocytes % % Eosinophils % % Basophils % % Neutrophils # (1.3-7.7) k/uL Lymphocytes # (1.0-4.8) k/uL Monocytes # (0-1.0) k/uL Eosinophils # (0-0.7) k/uL Basophils # (0-0.2) k/uL Anisocytosis Microcytosis PT 11.3 (9.0-12.0) sec INR 1.2 H (<1.2) APTT 24.6 (22.0-30.0) sec D-Dimer 0.57 (<0.60) mg/L FEU Sodium (137-145) mmol/L Potassium (3.5-5.1) mmol/L Chloride (98-107) mmol/L Carbon Dioxide (22-30) mmol/L Anion Gap mmol/L BUN (9-20) mg/dL Creatinine (0.66-1.25) mg/dL Est GFR (CKD-EPI)AfAm (>60 ml/min/1.73 sqM) Est GFR (CKD-EPI)NonAf (>60 ml/min/1.73 sqM) Glucose (74-99) mg/dL Calcium (8.4-10.2) mg/dL Magnesium (1.6-2.3) mg/dL Total Bilirubin (0.2-1.3) mg/dL AST (17-59) U/L ALT (21-72) U/L Alkaline Phosphatase (38-126) U/L Total Creatine Kinase (55-170) U/L CK-MB (CK-2) (0.0-2.4) ng/mL CK-MB (CK-2) Rel Index Troponin I (0.000-0.034) ng/mL NT-Pro-B Natriuret Pep 39 pg/mL Total Protein (6.3-8.2) g/dL Albumin (3.5-5.0) g/dL - Radiology Data Radiology results: image reviewed (Chest x-ray shows no acute process) Disposition Clinical Impression: Chest pain, Palpitations Disposition: ADMITTED IP TO THIS [facility] Is patient prescribed a controlled substance at d/c from ED?: No Referrals: Nonstaff,Physician [Primary Care Provider] - 1-2 days Decision Time: 12:17
[2017-10-09 11:22] LABS: Anisocytosis Moderate; Basophils % (A) 1 %; Eosinophils # (A) 0.1 k/uL (0-0.7); Eosinophils % (A) 3 %; HCT 36.1 % (39.0-53.0); HGB 11.8 gm/dL (13.0-17.5); Lymphocytes # (A) 1.3 k/uL (1.0-4.8); Lymphocytes % (A) 40 %; MCH 27.6 pg (25.0-35.0); MCHC 32.7 g/dL (31.0-37.0); MCV 84.5 fL (80.0-100.0); Mean Platelet Volume 7.9; Microcytosis Slight; Monocytes # (A) 0.3 k/uL (0-1.0); Monocytes % (A) 9 %; Neutrophils # (A) 1.4 k/uL (1.3-7.7); Neutrophils % (A) 44 %; RBC 4.27 m/uL (4.30-5.90); RDW 22.6 % (11.5-15.5); WBC 3.1 k/uL (3.8-10.6)
[2017-10-09 11:28] LABS: ALT 66 U/L (21-72); AST 101 U/L (17-59); Alkaline Phosphatase 95 U/L (38-126); Anion Gap 18 mmol/L; Blood Urea Nitrogen 13 mg/dL (9-20); Calcium 9.6 mg/dL (8.4-10.2); Carbon Dioxide 24 mmol/L (22-30); Chloride 104 mmol/L (98-107); Glucose 123 mg/dL (74-99); Magnesium 1.4 mg/dL (1.6-2.3); Potassium 4.2 mmol/L (3.5-5.1); Sodium 146 mmol/L (137-145); Total Bilirubin 0.4 mg/dL (0.2-1.3); Total Protein 7.7 g/dL (6.3-8.2)
[2017-10-09 11:29] LABS: Platelet Count 174 k/uL (150-450)
--- NOTE | 2017-10-09 11:33 | XR ---
EXAMINATION TYPE: XR chest 2V DATE OF EXAM: 10/09/2017 COMPARISON: 09/22/2017 HISTORY: Chest palpitations TECHNIQUE: Frontal and lateral views of the chest are obtained. FINDINGS: There is no pulmonary vascular congestion, pleural effusion, or pneumothorax seen. Chronic interstitial prominence is seen in the patient with known pulmonary fibrosis. No new focal consolida tion is present. The cardiac silhouette size is within normal limits. Left upper lobe granuloma is unchanged. The osseous structures are intact. Mild multilevel degenerative changes of thoracic spine are seen. IMPRESSION: Chronic findings with no acute cardiopulmonary process.
[2017-10-09] MEDS ORDERED: MAGNESIUM OXIDE 400 MG TAB PO STA (11:35)
[2017-10-09 11:44] LABS: Creatine Kinase 112 U/L (55-170)
[2017-10-09 11:46] LABS: D-Dimer 0.57 mg/L FEU (<0.60); INR 1.2 (<1.2); Partial Thromboplastin Time 24.6 sec (22.0-30.0); Prothrombin Time 11.3 sec (9.0-12.0)
[2017-10-09 11:56] LABS: Creatine Kinase MB 0.5 ng/mL (0.0-2.4); Troponin I <0.012 ng/mL (0.000-0.034)
[2017-10-09] MEDS ORDERED: NITROGLYCERIN SL TABS 0.4 MG TAB SUBLINGUAL PRN (12:18)
[2017-10-09 15:02] VITALS: BMI 28.9
[2017-10-09] MEDS ORDERED: hydrALAZINE HCL 20 MG/ML 1 ML VIAL IVP PRN (16:08)
[2017-10-09] MEDS ORDERED: cloNIDine HCL 0.1 MG TAB PO PRN (16:08)
[2017-10-09] MEDS ORDERED: TEMAZEPAM 15 MG CAP PO PRN (16:08)
[2017-10-09] MEDS ORDERED: DOCUSATE 100 MG CAP PO PRN (16:09)
[2017-10-09] MEDS: INSULIN ASPART 100 UNIT/ML 1 ML 10 ML VIAL SQ SCH ×2 (17:32→21:19)
[2017-10-09] MEDS: metFORMIN 500 MG TAB PO SCH (17:33)
[2017-10-09] MEDS: ONDANSETRON 4 MG/2 ML VIAL IVP PRN ×2 (17:34→22:47)
[2017-10-09] MEDS: PANTOPRAZOLE 40 MG/10 ML VIAL IVP SCH (17:40)
[2017-10-09] MEDS: cloNIDine HCL 0.1 MG TAB PO SCH ×2 (17:41→22:44)
[2017-10-09] MEDS: HEPARIN SODIUM,PORCINE 5,000 UNIT/ML 1 ML VIAL SQ SCH ×2 (17:41→22:44)
[2017-10-09 17:50] LABS: Creatine Kinase 115 U/L (55-170)
[2017-10-09] MEDS ORDERED: NITROGLYCERIN OINT 1 INCH/GM PACKET TOPICAL SCH (18:00)
[2017-10-09] MEDS: ALPRAZolam 0.25 MG TAB PO PRN (18:00)
[2017-10-09 18:02] LABS: Creatine Kinase MB 0.4 ng/mL (0.0-2.4); Troponin I <0.012 ng/mL (0.000-0.034)
[2017-10-09 20:07] LABS: Appearance,Urine Clear (Clear); Bilirubin,Urine Negative (Negative); Blood,Urine Negative (Negative); Color,Urine Light Yellow; Glucose,Urine (UA) Negative (Negative); Ketones,Urine Negative (Negative); Leukocyte Esterase,Urine Negative (Negative); Nitrite,Urine Negative (Negative); PH, Urine 7.5 (5.0-8.0); Protein,Urine Negative (Negative); Specific Gravity,Urine 1.008 (1.001-1.035); Urobilinogen,Urine <2.0 mg/dL (<2.0)
[2017-10-09 20:17] LABS: Amphetamine Screen,Urine Not Detected (NotDetected); Barbiturate Screen,Urine Not Detected (NotDetected); Benzodiazepines Screen,Urine Not Detected (NotDetected); Cocaine Screen,Urine Not Detected (NotDetected); Methadone Screen, Urine Not Detected (NotDetected); Opiate Screen,Urine Not Detected (NotDetected); Oxycodone Screen, Urine Not Detected (NotDetected); Phencyclidine Screen,Urine Not Detected (NotDetected); Tricyclic Antidepressant,Urine Not Detected (NotDetected); Urn Cannabinoid Scrn Not Detected (NotDetected)
[2017-10-09 21:01] LABS: Glucose,Whole Blood 94 mg/dL (75-99)
[2017-10-09 23:14] LABS: Hemoglobin A1C 5.3 % (4.0-6.0)
[2017-10-09 23:43] LABS: Creatine Kinase 104 U/L (55-170)
[2017-10-09 23:56] LABS: Creatine Kinase MB 0.4 ng/mL (0.0-2.4); Troponin I <0.012 ng/mL (0.000-0.034)
--- NOTE | 2017-10-10 03:37 | CONS ---
CONSULTATION This is a 62-year-old gentleman who lives in [place], [place]. He came into the hospital with complaints of chest discomfort. He said he felt some fluttering sensation in the chest and then had some tightness in the chest. This lasted a few seconds. The symptoms have resolved. However, he claims he has been having some nausea and dry heaves and felt some sweating this morning, but he is comfortable at the time of my evaluation. He has type 2 diabetes, takes oral agents. Denies any chest pain and has not had a stress test recently. About 2-1/2 years ago or so he apparently had a stress test, details unavailable. PAST MEDICAL HISTORY: 1. Type 2 diabetes mellitus. 2. There is a question of palpitations. I am not sure if he has documented atrial fibrillation. 3. He has had remote history of GI bleeding. 4. The patient is not a very good historian. There is a questionable history of pulmonary embolism as well. 5. He is status post appendectomy and cholecystectomy and a colonoscopy in the past. SOCIAL HISTORY: Patient is not a smoker. Patient is a heavy alcohol user but the last drink he had was about 48 hours ago. Patient at the time of my evaluation is resting comfortably without symptoms. MEDICATIONS: At home include Protonix and metformin and he used to use Colace and iron supplements and magnesium oxide in the past. ALLERGIES: LISINOPRIL. Patient does not seem to be a good historian, but apparently he did have a stress test about a year ago and this stress test was a dobutamine stress echo which was negative for stress-induced ischemia. He had a heart rate of 136 beats per minute with dobutamine administration with occasional PVCs. The patient also had an echocardiogram that revealed normal systolic function. This was performed on 09/22/2017. No significant abnormalities were detected on the echocardiogram. He also had a CT angiography performed, which was not diagnostic for any pulmonary embolus but there was some left-sided persistent volume loss noted. EXAMINATION: Blood pressure is 140/70, pulse rate is about 80 per minute regular. HEENT: Unremarkable. Fundus was not examined by me. NECK: Supple. There is no JVD. There is no carotid bruit. HEART: Reveals S1, S2 heard normally. There is a short systolic murmur. Second heart sound is preserved. LUNGS: Clear. ABDOMEN: Soft, nontender. I cannot appreciate any hepatomegaly. Lower extremities reveal palpable pulses. Central nervous system is grossly within normal limits. IMPRESSION: 1. Atypical chest pain with a negative dobutamine echo one year ago. 2. History of alcohol abuse with the last drink was 48 hours ago. 3. History of gastrointestinal bleeding. 4. History of recent hospitalization with chest pain about a month ago. RECOMMENDATIONS: I am recommending that we will obtain serial troponins. Place him also on some multivitamin and thiamine. No additional testing is necessary at this time. I will discontinue the nitroglycerin paste and based on clinical course I will make further recommendations. We should look out for any alcohol withdrawal. I discussed my thoughts in detail with the patient. Thank you very much for the consult. ROCIO / RENAEN: [id number] / YANIV
[2017-10-10 06:22] LABS: Glucose,Whole Blood 109 mg/dL (75-99)
[2017-10-10 06:33] LABS: Anisocytosis Moderate; Basophils % (A) 0 %; Eosinophils # (A) 0.1 k/uL (0-0.7); Eosinophils % (A) 3 %; HCT 35.8 % (39.0-53.0); HGB 11.3 gm/dL (13.0-17.5); Hypochromasia Slight; Lymphocytes # (A) 1.2 k/uL (1.0-4.8); Lymphocytes % (A) 40 %; MCHC 31.5 g/dL (31.0-37.0); MCV 85.9 fL (80.0-100.0); Mean Platelet Volume 7.5; Microcytosis Slight; Monocytes # (A) 0.2 k/uL (0-1.0); Monocytes % (A) 8 %; Neutrophils # (A) 1.4 k/uL (1.3-7.7); Neutrophils % (A) 47 %; Platelet Count 146 k/uL (150-450); RBC 4.16 m/uL (4.30-5.90); RDW 22.1 % (11.5-15.5)
[2017-10-10] MEDS: INSULIN ASPART 100 UNIT/ML 1 ML 10 ML VIAL SQ SCH ×2 (06:44→12:37)
[2017-10-10 06:47] LABS: Anion Gap 13 mmol/L; Blood Urea Nitrogen 14 mg/dL (9-20); Calcium 9.2 mg/dL (8.4-10.2); Carbon Dioxide 28 mmol/L (22-30); Chloride 98 mmol/L (98-107); Cholesterol 221 mg/dL (<200); Glucose 112 mg/dL (74-99); HDL Cholesterol 48 mg/dL (40-60); LDL Cholesterol,Calculated 137 mg/dL (0-99); Potassium 3.8 mmol/L (3.5-5.1); Sodium 139 mmol/L (137-145); Triglycerides 180 mg/dL (<150)
[2017-10-10 08:49] VITALS: TEMP 97.8
[2017-10-10] MEDS ORDERED: ASPIRIN 81 MG PO SCH (09:00)
[2017-10-10] MEDS ORDERED: ASPIRIN 325 MG TAB PO SCH (09:00)
[2017-10-10] MEDS ORDERED: MAGNESIUM OXIDE 400 MG TAB PO SCH (09:00)
[2017-10-10] MEDS ORDERED: NADOLOL 20 MG TAB PO SCH (09:00)
[2017-10-10] MEDS: PANTOPRAZOLE 40 MG/10 ML VIAL IVP SCH (09:04)
[2017-10-10] MEDS: ALPRAZolam 0.25 MG TAB PO PRN (09:04)
[2017-10-10] MEDS: HEPARIN SODIUM,PORCINE 5,000 UNIT/ML 1 ML VIAL SQ SCH (09:04)
[2017-10-10] MEDS: metFORMIN 500 MG TAB PO SCH (09:05)
[2017-10-10] MEDS: cloNIDine HCL 0.1 MG TAB PO SCH (09:05)
[2017-10-10] MEDS: MAGNESIUM SULFATE-D5W PMX 1 GM in DEXTROSE/WATER 1 100ML.BAG IVPB SCH ×2 (11:23→14:06)
[2017-10-10 11:41] LABS: Glucose,Whole Blood 147 mg/dL (75-99)
[2017-10-10] MEDS ORDERED: THIAMINE 100 MG TAB PO SCH (12:00)
[2017-10-10] MEDS ORDERED: FOLIC ACID 1 MG TAB PO SCH (12:00)
[2017-10-10] MEDS ORDERED: MULTIVITAMINS, THERA 1 EACH TAB PO SCH (12:00)
[2017-10-10 13:27] VITALS: BP 83/50; PULSE 73; RESP 18
--- NOTE | 2017-10-10 13:44 | PN ---
PROGRESS NOTE This is a gentleman who was admitted yesterday with chest pain. He has also history of alcoholism. I am recommending multivitamins and thiamine. He has no further troponin elevation. He is resting comfortably. His echo revealed preserved systolic function. Vital signs are stable. S1-S2 heard normally. Lungs are clear. Abdomen and lower extremity exam is unchanged. Plan is to increase activity and if he has no further symptoms, he can be discharged and follow up with his primary care physician. ROCIO / RENAEN: [id number] /
--- NOTE | 2017-10-10 15:44 | HP ---
HISTORY AND PHYSICAL DATE OF SERVICE: 10/09/2017 CHIEF COMPLAINT: Chest pain. HISTORY OF PRESENT ILLNESS: This 62-year-old gentleman with a past medical history of multiple medical problems, including atrial fibrillation, COPD, CVA, diabetes, GERD, GI bleed was admitted with chest pain. Pain was felt in the anterior part of the chest. The patient also felt some heartbeat skipping. Patient also had nausea, vomiting. The patient also had a history of EtOH. Patient admitted for further evaluation. There is no history of any fever, rigors. No history of headache loss of conscious or seizures. PAST MEDICAL HISTORY: Atrial fibrillation, COPD, CVA, TIA, diabetes mellitus GERD, hypertension, hyperlipidemia. MEDICATIONS: Home medications are: 1. Metformin 1000 mg b.i.d. 2. Protonix 40 mg daily. 3. Corgard 10 mg daily. 4. Magnesium oxide 400 mg daily. 5. Iron sulfate 325 mg daily. 6. Colace 100 mg daily. 7. Thiamine 100 mg p.o. daily. 8. Aspirin 81 mg daily. 9. Lipitor 10 mg q.h.s. ALLERGIES: ADHESIVE TAPE, EGG, LISINOPRIL. FAMILY HISTORY: History of COPD, CVA, TIA, dementia in the family. SOCIAL HISTORY: No history of smoking or history of alcohol intake. REVIEW OF SYSTEMS: ENT: No diminished hearing, diminished vision. CARDIOVASCULAR: As mentioned earlier. RESPIRATORY: As mentioned earlier. GI: No nausea or vomiting. : No dysuria. NERVOUS: No numbness or weakness. ALLERGY/IMMUNOLOGY: No asthma or hay fever. MUSCULOSKELETAL: As mentioned earlier. HEMATOLOGY/ONCOLOGY: No history of anemia. ENDOCRINE: History of diabetes. No history of hypothyroidism. CONSTITUTIONAL: As mentioned earlier. DERMATOLOGY: Negative. RHEUMATOLOGY: Negative. PSYCHIATRY: As mentioned earlier. PHYSICAL EXAMINATION: Alert, oriented x3. Pulse 73, blood pressure 93/50, respiration 18, temp 97.8, pulse ox 96% on room air. HEENT: Conjunctivae normal. NECK: No jugular venous distention. CARDIOVASCULAR: S1, S2 muffled. RESPIRATORY: Breath sounds diminished in the bases. A few scattered rhonchi. No crackles. ABDOMEN: Soft, nontender. No mass palpable. LEGS: No edema. No swelling. NERVOUS SYSTEM: Higher functions as mentioned earlier. Moves all 4 limbs. No focal motor or sensory deficits. LYMPHATIC: No lymphadenopathy in neck or axillae. SKIN: No ulcer, rash or bleeding. LABS: WBC 3, hemoglobin is 11.3, platelets 1.5. ASSESSMENT: 1. Chest pain, possible unstable angina. 2. Hyperlipidemia. 3. History atrial fibrillation. 4. Chronic obstructive pulmonary disease. 5. Cerebrovascular accident, transient ischemic attack. 6. Diabetes mellitus. 7. Hypertension. 8. Hyperlipidemia. 9. History of pulmonary embolism. RECOMMENDATIONS AND DISCUSSION: In this 62-year-old gentleman who presented with multiple complex medical issues , will monitor the patient closely, continue the current medical management and symptomatic treatment. Otherwise, unstable angina protocol with Lipitor, antiplatelet agents, closely follow with Cardiology. Guarded prognosis because of multiple complex medical issues. Further recommendations to follow. MMODL / IJN: [id number] / [id number]
[2017-10-10 16:40] LABS: Glucose,Whole Blood 115 mg/dL (75-99)
[2017-10-10] MEDS ORDERED: PANTOPRAZOLE 40 MG TABLET PO SCH (17:30)
--- NOTE | 2017-10-11 05:26 | DS ---
DISCHARGE SUMMARY DATE OF SERVICE: 10/10/2017 FINAL DIAGNOSES: 1. Chest pain, myocardial infarction ruled out. 2. Negative dobutamine echo 1 year. 3. History of ETOH. 4. History of gastrointestinal bleed. 5. History atrial fibrillation. 6. Chronic obstructive pulmonary disease. 7. Diabetes type 2. 8. Hyperlipidemia. 9. Hypertension. 10.History of pulmonary embolism. DISCHARGE DISPOSITION: The patient is being discharged in stable condition with guarded prognosis. HISTORY OF PRESENT ILLNESS: This 62-year-old gentleman with a past medical history of multiple medical problems was admitted with chest pain and had palpitations. Patient was treated in conjunction with Cardiology. Myocardial infarction ruled out. Lipids found to be high, elevated. On exam, vital signs are stable. Cardiovascular: S1, S2. Abdomen soft. Nontender. Central nervous system: No focal deficits. DISCHARGE ADVICE AND MEDICATIONS: 1. Discharge diet is cardiac diet. 2. Activity limited until followup. 3. Follow up with primary physician in 1-2 days. 4. Follow up with cardiology as advised. MEDICATIONS: 1. Aspirin 81 mg p.o. daily. 2. Lipitor 10 mg q.h.s. 3. Colace 100 mg. 4. Iron sulfate 320 mg daily. 5. Folic acid 1 mg daily. 6. Magnesium oxide 400 mg daily. 7. Metformin 1000 mg p.o. b.i.d. 8. Multivitamins 1 p.o. daily. 9. Corgard 20 mg p.o. daily. 10.Protonix 40 mg daily. 11.No ETOH. 12.Thiamin 100 mg p.o. daily. MMODL / IJN: [id number] /
--- NOTE | 2017-10-11 10:42 | HP ---
HISTORY AND PHYSICAL DATE OF SERVICE: 10/09/2017 CHIEF COMPLAINT: Chest pain. HISTORY OF PRESENT ILLNESS: This 62-year-old gentleman with a past medical history of multiple medical problems, including atrial fibrillation, COPD, CVA, TIA, diabetes mellitus, GERD, GI bleed , being followed by in the outpatient setting was complaining of chest pain. The patient had palpitations this morning and subsequently patient had chest pain. Blood pressure was elevated and patient apparently took like 3 large drinks also a couple of days ago. There is no history of any fever, rigors. No headache, loss of consciousness, seizures. PAST MEDICAL HISTORY: Atrial ablation, COPD, CVA, diabetes mellitus, GERD, hypertension, hyperlipidemia. MEDICATIONS PRIOR TO ADMISSION: Include: 1. Metformin 1000 mg p.o. b.i.d. 2. Protonix 40 mg daily. 3. Corgard 20 mg p.o. daily. 4. Magnesium oxide 400 mg p.o. daily. 5. Aspirin 320 mg daily. 6. Colace 100 mg daily p.r.n. ALLERGIES: and LISINOPRIL. FAMILY HISTORY: History of COPD, CVA, TIA, dementia. SOCIAL HISTORY: Occasional alcohol as mentioned earlier. No history of smoking. REVIEW OF SYSTEMS: ENT: No diminished hearing, diminished vision. CARDIOVASCULAR: As mentioned earlier. RESPIRATORY: As mentioned earlier. GI: No nausea or vomiting. : No dysuria. NERVOUS: No numbness or weakness. ALLERGY/IMMUNOLOGY: No asthma or hay fever. MUSCULOSKELETAL: As mentioned earlier. HEMATOLOGY/ONCOLOGY: No history of anemia. ENDOCRINE: As mentioned earlier. CONSTITUTIONAL: As mentioned earlier. DERMATOLOGY: Negative. RHEUMATOLOGY: Negative. PSYCHIATRY: As mentioned earlier. PHYSICAL EXAMINATION: Alert and oriented x3. Pulse 84, blood pressure 160/87, respirations 16, temperature is 98.4, pulse ox 93% on 2L. HEENT: Conjunctivae normal. Oral mucosa moist. NECK: No jugular venous distention. No carotid bruits. No lymph node enlargement. CARDIOVASCULAR: S1, S2 muffled. RESPIRATORY: Breath sounds diminished in the bases. No rhonchi. No crackles. ABDOMEN: Soft, nontender. No mass palpable. LEGS: No edema. No swelling. NERVOUS SYSTEM: Higher functions as mentioned earlier. Moves all 4 limbs. No focal motor or sensory deficits. LYMPHATIC: No lymphadenopathy in neck, axillae or groin. SKIN: No ulcer, rash or bleeding. LABS: WBC 3.1, hemoglobin is 11.8, platelets 174. INR 1.2. Sodium is 146, potassium 4.2, glucose 133. ASSESSMENT: 1. Chest pain for evaluation, rule out coronary artery disease. 2. Vomiting, possible acute gastritis. 3. Hypertensive urgency. 4. Atrial fibrillation. 5. Chest pain. 6. Chronic obstructive pulmonary disease. 7. Cerebrovascular accident, transient ischemic attack. 8. Diabetes mellitus type 2. 9. Gastroesophageal reflux disease. 10.Gastrointestinal bleed. 11.Hypertension. 12.Hyperlipidemia. 13.History of pulmonary embolism. 14.Anxiety, depression. RECOMMENDATIONS AND DISCUSSION: In this 62-year-old gentleman who presented with multiple complex medical issues , we will monitor the patient closely, continue the current medical management and symptomatic treatment. Otherwise, I would continue with IV Protonix. Rule out myocardial infarction. DVT prophylaxis. Follow closely with Cardiology. Clonidine for blood pressure elevations on a p.r.n. basis. The prognosis guarded because of multiple complex medical issues as mentioned earlier. Further recommendations to follow. MMODL / IJN: [id number] / YANIV
== END 2017-10-10 18:28 | disposition home or self-care (01) ==
LOC: EC 10:33 → 6SEL 12:19
PROVIDERS: ADMIT Internal Medicine; ATTEND Internal Medicine
DX: R07.89 Other chest pain (principal); R00.2 Palpitations; R11.2 Nausea with vomiting, unspecified; R06.00 Dyspnea, unspecified; R61 Generalized hyperhidrosis; I48.91 Unspecified atrial fibrillation; J44.9 Chronic obstructive pulmonary disease, unspecified; E11.9 Type 2 diabetes mellitus without complications; K21.9 Gastro-esophageal reflux disease without esophagitis; I16.0 Hypertensive urgency; R60.0 Localized edema; E78.5 Hyperlipidemia, unspecified; I10 Essential (primary) hypertension; D64.9 Anemia, unspecified; R77.8 Other specified abnormalities of plasma proteins; F10.20 Alcohol dependence, uncomplicated; F32.9 Major depressive disorder, single episode, unspecified; F41.9 Anxiety disorder, unspecified; M50.30 Other cervical disc degeneration, unspecified cervical region; Z91.048 Other nonmedicinal substance allergy status; Z91.012 Allergy to eggs; Z88.8 Allergy status to other drugs, medicaments and biological substances; Z91.018 Allergy to other foods; Z81.8 Family history of other mental and behavioral disorders; Z87.19 Personal history of other diseases of the digestive system; Z86.711 Personal history of pulmonary embolism; Z86.73 Personal history of transient ischemic attack (TIA), and cerebral infarction without residual deficits; Z90.49 Acquired absence of other specified parts of digestive tract; Z79.82 Long term (current) use of aspirin; Z79.84 Long term (current) use of oral hypoglycemic drugs; Z79.899 Other long term (current) drug therapy; Z86.19 Personal history of other infectious and parasitic diseases; M51.37 Other intervertebral disc degeneration, lumbosacral region
CPT/HCPCS: 99285 ×2; 96376 ×2; 96365; 96372 ×2; 96375; 36415; 94760; 93005; 85379; 83880; 80061; 80053; 80048; 82550; 82553; 83735; 84484; 85025 ×2; 85610; 85730; 81003; 80306; 83036; 71046; G0378 ×2; J1644 ×2; J2405; J3475; C9113 ×2

== ENCOUNTER 2017-10-21 15:02 | Inpatient (IN) | payer OTHER ==
[2017-10-21] MEDS ORDERED: MECLIZINE 12.5 MG TAB PO STA (15:17)
[2017-10-21] MEDS ORDERED: SODIUM CHLORIDE 0.9% 1,000 ML IV ONE (15:18)
--- NOTE | 2017-10-21 15:29 | ED ---
GI Bleed HPI - General Stated complaint: POSS GI BLEED Time Seen by Provider: 10/21/17 15:03 Source: patient, EMS, RN notes reviewed Mode of arrival: EMS Limitations: no limitations - History of Present Illness Initial comments: This a 62-year-old male presents emergency Department chief complaint of feeling lightheaded and dizzy. Patient states he woke up feeling like this. He was he does state that it's exacerbated by movement though he states he is concerned that he had a bowel movement with bright red blood. Patient states that he was admitted this year for low hemoglobin and rectal bleeding. Patient upper and lower GI bleed. Patient does admit to alcohol use a few days ago. Patient denies any abdominal pain this time. Patient denies any dysuria hematuria. Patient has no current chest pain or shortness breath no fever no chills no neck pain. Patient has no focal weakness. - Related Data Home Medications Medication Instructions Recorded Confirmed Pantoprazole [Protonix] 40 mg PO DAILY 09/22/17 10/21/17 metFORMIN HCL 1,000 mg PO BID 09/23/17 10/21/17 Previous Rx's Medication Instructions Recorded Docusate [Colace] 100 mg PO DAILY PRN #20 capsule 08/27/17 Ferrous Sulfate [Feosol] 325 mg PO DAILY #30 tab 08/27/17 Magnesium Oxide 400 mg PO DAILY #30 tablet 09/24/17 Nadolol [Corgard] 20 mg PO DAILY #30 tab 09/24/17 Aspirin 81 mg PO DAILY #30 chew 10/10/17 Atorvastatin Calcium [Lipitor] 10 mg PO HS #30 tab 10/10/17 Folic Acid 1 mg PO DAILY@1200 #30 tab 10/10/17 Multivitamins, Thera [Multivitamin 1 each PO DAILY@1200 #30 tab 10/10/17 (formulary)] Thiamine [Vitamin B-1] 100 mg PO DAILY@1200 #30 tab 10/10/17 Allergies Allergy/AdvReac Type Severity Reaction Status Date / Time adhesive tape Allergy Rash/Hives Verified 10/21/17 16:01 egg AdvReac Nausea & Verified 10/21/17 16:01 Vomiting lisinopril AdvReac EYES Verified 10/21/17 16:01 BURN&ITCH/WEAKNESS tomato AdvReac Nausea & Verified 10/21/17 16:01 Vomiting & Diarrhea Review of Systems ROS Statement: Those systems with pertinent positive or pertinent negative responses have been documented in the HPI. ROS Other: All systems not noted in ROS Statement are negative. Past Medical History Past Medical History: Atrial Fibrillation, Chest Pain / Angina, COPD, CVA/TIA, Diabetes Mellitus, GERD/Reflux, GI Bleed, Hyperlipidemia, Hypertension, Pulmonary Embolus (PE) Additional Past Medical History / Comment(s): Upper and lower GI bleeds/anemia, esophageal varicies/diverticulosis, bilateral ankle edema at times, 2016 bacterial septicemia, TIA, NIDDM type II, 2012, cervical disc disease with neck pain goes into R arm, DDD low back goes into R leg, scoliosis, epilepsy when a child, alcoholic last drank 10/06/17 History of Any Multi-Drug Resistant Organisms: None Reported Past Surgical History: Appendectomy, Cholecystectomy Additional Past Surgical History / Comment(s): 07/20/17 EGD, 03/21/17 EGD/ colonoscopy, other colonoscopies. Past Anesthesia/Blood Transfusion Reactions: Previous Problems w/ Anesthesia Additional Past Anesthesia/Blood Transfusion Reaction / Comment(s): after appendix removed sob Past Psychological History: Anxiety, Depression Smoking Status: Never smoker Past Alcohol Use History: Abuse, Heavy Past Drug Use History: None Reported - Past Family History Mother Family Medical History: COPD, CVA/TIA, Dementia Additional Family Medical History / Comment(s): from a stroke Father Family Medical History: Pneumonia Additional Family Medical History / Comment(s): Father of pneumonia when he was close to 80 yrs old. General Exam Limitations: no limitations General appearance: alert, in no apparent distress Head exam: Present: atraumatic, normocephalic, normal inspection Eye exam: Present: normal appearance, PERRL, EOMI. Absent: scleral icterus, conjunctival injection, periorbital swelling ENT exam: Present: normal exam, normal oropharynx, mucous membranes moist Neck exam: Present: normal inspection, full ROM. Absent: tenderness, meningismus, lymphadenopathy Respiratory exam: Present: normal lung sounds bilaterally. Absent: respiratory distress, wheezes, rales, rhonchi, stridor Cardiovascular Exam: Present: regular rate, normal rhythm, normal heart sounds. Absent: systolic murmur, diastolic murmur, rubs, gallop, clicks GI/Abdominal exam: Present: soft, normal bowel sounds. Absent: distended, tenderness, guarding, rebound, rigid Rectal exam: Present: normal inspection. Absent: hemorrhoids, mass, tenderness Neurological exam: Present: alert, oriented X3, CN II-XII intact, reflexes normal. Absent: motor sensory deficit Skin exam: Present: warm, dry, intact, normal color. Absent: rash Course Vital Signs 10/21/17 10/21/17 15:21 15:54 Temperature 97.7 F Pulse Rate 106 H Respiratory 18 Rate Blood Pressure 141/85 O2 Sat by Pulse 98 96 Oximetry Medical Decision Making - Medical Decision Making 62-year-old male presents from chief complaint of dizziness and GI bleed. Patient is Hemoccult positive hemoglobin 11. Patient will be admitted for IV hydration, repeat H&H and buttocks this time. Patient is currently intoxicated. Patient we placed a seawall and Ativan protocol. - Lab Data Result diagrams: 10/21/17 15:33 10/21/17 15:33 Lab Results 10/21/17 10/21/17 10/21/17 Range/Units 15:33 15:33 15:33 WBC 3.4 L (3.8-10.6) k/uL RBC 4.03 L (4.30-5.90) m/uL Hgb 11.0 L (13.0-17.5) gm/dL Hct 33.8 L (39.0-53.0) % MCV 84.0 (80.0-100.0) fL MCH 27.4 (25.0-35.0) pg MCHC 32.6 (31.0-37.0) g/dL RDW 21.4 H (11.5-15.5) % Plt Count 99 L (150-450) k/uL Neutrophils % (Manual) 31 % Lymphocytes % (Manual) 63 % Monocytes % (Manual) 5 % Eosinophils % (Manual) 1 % Other Cells % % Neutrophils # (Manual) 1.05 L (1.3-7.7) k/uL Lymphocytes # (Manual) 2.14 (1.0-4.8) k/uL Monocytes # (Manual) 0.17 (0-1.0) k/uL Eosinophils # (Manual) 0.03 (0-0.7) k/uL Nucleated RBCs 0 (0-0) /100 WBC Manual Slide Review Performed Large Platelets Present Anisocytosis Moderate Microcytosis Slight PT (9.0-12.0) sec INR (<1.2) APTT (22.0-30.0) sec Sodium 146 H (137-145) mmol/L Potassium 4.2 (3.5-5.1) mmol/L Chloride 104 (98-107) mmol/L Carbon Dioxide 23 (22-30) mmol/L Anion Gap 19 mmol/L BUN 20 (9-20) mg/dL Creatinine 0.80 (0.66-1.25) mg/dL Est GFR (CKD-EPI)AfAm >90 (>60 ml/min/1.73 sqM) Est GFR (CKD-EPI)NonAf >90 (>60 ml/min/1.73 sqM) Glucose 130 H (74-99) mg/dL Calcium 8.4 (8.4-10.2) mg/dL Magnesium 1.7 (1.6-2.3) mg/dL Total Bilirubin 0.6 (0.2-1.3) mg/dL AST 127 H (17-59) U/L ALT 60 (21-72) U/L Alkaline Phosphatase 94 (38-126) U/L Total Creatine Kinase 127 (55-170) U/L CK-MB (CK-2) 0.5 (0.0-2.4) ng/mL CK-MB (CK-2) Rel Index 0.4 Troponin I <0.012 (0.000-0.034) ng/mL Total Protein 7.5 (6.3-8.2) g/dL Albumin 4.1 (3.5-5.0) g/dL Lipase 275 (23-300) U/L Stool Occult Blood (Negative) Serum Alcohol 264 mg/dL 10/21/17 10/21/17 Range/Units 15:33 15:33 WBC (3.8-10.6) k/uL RBC (4.30-5.90) m/uL Hgb (13.0-17.5) gm/dL Hct (39.0-53.0) % MCV (80.0-100.0) fL MCH (25.0-35.0) pg MCHC (31.0-37.0) g/dL RDW (11.5-15.5) % Plt Count (150-450) k/uL Neutrophils % (Manual) % Lymphocytes % (Manual) % Monocytes % (Manual) % Eosinophils % (Manual) % Other Cells % % Neutrophils # (Manual) (1.3-7.7) k/uL Lymphocytes # (Manual) (1.0-4.8) k/uL Monocytes # (Manual) (0-1.0) k/uL Eosinophils # (Manual) (0-0.7) k/uL Nucleated RBCs (0-0) /100 WBC Manual Slide Review Large Platelets Anisocytosis Microcytosis PT 11.6 (9.0-12.0) sec INR 1.2 H (<1.2) APTT 25.0 (22.0-30.0) sec Sodium (137-145) mmol/L Potassium (3.5-5.1) mmol/L Chloride (98-107) mmol/L Carbon Dioxide (22-30) mmol/L Anion Gap mmol/L BUN (9-20) mg/dL Creatinine (0.66-1.25) mg/dL Est GFR (CKD-EPI)AfAm (>60 ml/min/1.73 sqM) Est GFR (CKD-EPI)NonAf (>60 ml/min/1.73 sqM) Glucose (74-99) mg/dL Calcium (8.4-10.2) mg/dL Magnesium (1.6-2.3) mg/dL Total Bilirubin (0.2-1.3) mg/dL AST (17-59) U/L ALT (21-72) U/L Alkaline Phosphatase (38-126) U/L Total Creatine Kinase (55-170) U/L CK-MB (CK-2) (0.0-2.4) ng/mL CK-MB (CK-2) Rel Index Troponin I (0.000-0.034) ng/mL Total Protein (6.3-8.2) g/dL Albumin (3.5-5.0) g/dL Lipase (23-300) U/L Stool Occult Blood Positive (Negative) Serum Alcohol mg/dL - EKG Data EKG Comments: EKG performed at 15:40 sinus tachycardia with rate of 1:03 PM 158 QRS 72 QT/QTC 368/482 Disposition Clinical Impression: Lower GI hemorrhage, Alcohol intoxication, ETOH abuse, Dizziness Disposition: ADMITTED IP TO THIS HOSP Condition: Stable Referrals: None,Stated [Primary Care Provider] - 1-2 days
[2017-10-21 15:42] LABS: Anisocytosis Moderate; HCT 33.8 % (39.0-53.0); MCH 27.4 pg (25.0-35.0); MCHC 32.6 g/dL (31.0-37.0); Mean Platelet Volume 8.5; Microcytosis Slight; RBC 4.03 m/uL (4.30-5.90); RDW 21.4 % (11.5-15.5); WBC 3.4 k/uL (3.8-10.6)
[2017-10-21 15:49] LABS: Platelet Count 99 k/uL (150-450)
[2017-10-21 15:55] LABS: INR 1.2 (<1.2); Prothrombin Time 11.6 sec (9.0-12.0)
[2017-10-21 15:56] LABS: ALT 60 U/L (21-72); AST 127 U/L (17-59); Albumin 4.1 g/dL (3.5-5.0); Alkaline Phosphatase 94 U/L (38-126); Anion Gap 19 mmol/L; Blood Urea Nitrogen 20 mg/dL (9-20); Calcium 8.4 mg/dL (8.4-10.2); Carbon Dioxide 23 mmol/L (22-30); Chloride 104 mmol/L (98-107); Glucose 130 mg/dL (74-99); Lipase 275 U/L (23-300); Magnesium 1.7 mg/dL (1.6-2.3); Potassium 4.2 mmol/L (3.5-5.1); Sodium 146 mmol/L (137-145); Total Bilirubin 0.6 mg/dL (0.2-1.3); Total Protein 7.5 g/dL (6.3-8.2)
[2017-10-21 15:58] LABS: Alcohol 264 mg/dL
[2017-10-21 16:02] LABS: Creatine Kinase 127 U/L (55-170)
[2017-10-21 16:10] LABS: Eosinophils # (M) 0.03 k/uL (0-0.7); Lymphocytes # (M) 2.14 k/uL (1.0-4.8); Monocytes # (M) 0.17 k/uL (0-1.0); Neutrophils # (M) 1.05 k/uL (1.3-7.7); Neutrophils % (M) 31 %; Nucleated Red Blood Cells 0 /100 WBC (0-0); Total Cells Counted 100
[2017-10-21 16:14] LABS: Creatine Kinase MB 0.5 ng/mL (0.0-2.4); Large Platelets Present; Troponin I <0.012 ng/mL (0.000-0.034)
[2017-10-21] MEDS ORDERED: NALOXONE 0.4 MG/ML 1 ML VIAL IV PRN (16:31)
[2017-10-21] MEDS ORDERED: PANTOPRAZOLE 40 MG/10 ML VIAL IV ONE (16:45)
[2017-10-21] MEDS: SODIUM CHLORIDE 0.9% 1,000 ML IV SCH (16:48)
[2017-10-21] MEDS ORDERED: LORazepam 2 MG/ML INJ IV PRN ×2 (16:57)
[2017-10-21] MEDS ORDERED: DOCUSATE 100 MG CAP PO PRN (18:02)
[2017-10-21 18:21] VITALS: BMI 28.9
[2017-10-21] MEDS: THIAMINE 100 MG TAB PO SCH (19:12)
[2017-10-21] MEDS ORDERED: ONDANSETRON 4 MG/2 ML VIAL IVP PRN (19:34)
[2017-10-21 20:25] LABS: Glucose,Whole Blood 137 mg/dL (75-99)
[2017-10-21] MEDS: ATORVASTATIN 10 MG TAB PO SCH (20:50)
[2017-10-21] MEDS: metFORMIN 500 MG TAB PO SCH (20:50)
[2017-10-21 21:48] LABS: Glucose,Whole Blood 145 mg/dL (75-99)
[2017-10-21 21:59] LABS: Anisocytosis Moderate; Basophils % (A) 0 %; Eosinophils # (A) 0.1 k/uL (0-0.7); Eosinophils % (A) 1 %; HCT 30.6 % (39.0-53.0); HGB 9.7 gm/dL (13.0-17.5); Hypochromasia Slight; Lymphocytes # (A) 1.5 k/uL (1.0-4.8); Lymphocytes % (A) 29 %; MCH 26.9 pg (25.0-35.0); MCHC 31.5 g/dL (31.0-37.0); MCV 85.5 fL (80.0-100.0); Microcytosis Slight; Monocytes # (A) 0.3 k/uL (0-1.0); Monocytes % (A) 7 %; Neutrophils # (A) 3.1 k/uL (1.3-7.7); Neutrophils % (A) 62 %; Platelet Count 108 k/uL (150-450); RBC 3.58 m/uL (4.30-5.90); RDW 21.4 % (11.5-15.5)
[2017-10-21 22:15] LABS: Anion Gap 16 mmol/L; Blood Urea Nitrogen 18 mg/dL (9-20); Calcium 7.8 mg/dL (8.4-10.2); Carbon Dioxide 24 mmol/L (22-30); Chloride 104 mmol/L (98-107); Glucose 151 mg/dL (74-99); Phosphorus 2.1 mg/dL (2.5-4.5); Potassium 4.4 mmol/L (3.5-5.1); Sodium 144 mmol/L (137-145)
[2017-10-21 22:15] LABS: Glucose,Whole Blood 155 mg/dL (75-99)
[2017-10-21] MEDS ORDERED: BENZOCAINE SPRAY 1 CAN MUCOUS MEM PRN (23:39)
[2017-10-21] MEDS ORDERED: OCTREOTIDE 100 MCG/ML INJ IVP ONE (23:40)
[2017-10-21] MEDS: ONDANSETRON 4 MG/2 ML VIAL IVP PRN (23:49)
[2017-10-22] MEDS: LORazepam 2 MG/ML INJ IV PRN ×2 (00:01→02:15)
[2017-10-22] MEDS: OCTREOTIDE 200 MCG in SODIUM CHLORIDE 0.9% 100 ML IV SCH ×6 (00:02→20:08)
--- NOTE | 2017-10-22 00:30 | P.HPIM ---
History of Present Illness H&P Date: 10/21/17 Chief Complaint: Dizziness and lightheadedness Patient is a 62-year-old male with a known history of alcohol abuse, COPD, CVA/ TIA, diabetes type 2, GERD and history of previous GI bleed, pulmonary embolism and esophageal varices/diverticulosis and multiple other medical problems came to ER with complaints of feeling dizziness and lightheadedness. Patient says that he woke up feeling very dizzy. Patient was alcohol intoxicated on admission. Patient is also complaining of dark-colored stools/maroon colored stools. FOBT is positive. Patient was previously admitted to hospital with low hemoglobin and rectal bleeding this year. Patient had EGD done on 2017 showed mild distal esophageal varices. No active bleeding was noted at the time. Otherwise denied any chest pain or shortness of breath. No leg swelling. No nausea vomiting or abdominal pain. No diarrhea. No dysuria or hematuria. Patient was initially admitted to telemetry unit. Patient did have 2-3 episodes of hematemesis with bright red blood and was transferred to intensive care unit for further management. Repeat hemoglobin found to be 9.7 Patient was presented with hemoglobin 5.4 in July 2017 EKG sinus tachycardia Serum alcohol 264 Hemoglobin 11.0 on admission dropped down to 9.7 Review of Systems Constitutional: Patient denies any fever or chills . No generalized weakness or weight loss. Abdomen: Patient denied nausea vomiting and diarrhea and abdominal pain. Blood per rectum Cardiovascular: Patient denies any chest pain or short of breath no palpitations. Respiratory: patient denied any cough is from production. No shortness of breath Neurologic: Patient denied any numbness or tingling headache. Musculoskeletal: Patient denies any complaints of joint swelling or deformity. Skin: Negative Psychiatric: Negative Endocrine: No heat or cold intolerance. No recent weight gain. Genitourinary: No dysuria or hematuria. All other 14 point ROS negative except the above Past Medical History Past Medical History: Atrial Fibrillation, Chest Pain / Angina, COPD, CVA/TIA, Diabetes Mellitus, GERD/Reflux, GI Bleed, Hyperlipidemia, Hypertension, Pulmonary Embolus (PE) Additional Past Medical History / Comment(s): pt is rt side dominant.Upper and lower GI bleeds/anemia, esophageal varicies/diverticulosis, bilateral ankle edema at times, 2016 bacterial septicemia, TIA, NIDDM type II, 2012, cervical disc disease with neck pain goes into R arm, DDD low back goes into R leg, scoliosis, epilepsy when a child,tinnitus bl ears alcoholic last drank 10/06/17 History of Any Multi-Drug Resistant Organisms: None Reported Past Surgical History: Appendectomy, Cholecystectomy Additional Past Surgical History / Comment(s): 07/20/17 EGD, 03/21/17 EGD/ colonoscopy, other colonoscopies. Past Anesthesia/Blood Transfusion Reactions: Previous Problems w/ Anesthesia Additional Past Anesthesia/Blood Transfusion Reaction / Comment(s): after appendix removed sob Past Psychological History: Anxiety, Depression Additional Psychological History / Comment(s): Pt lives in an apartment alone in [facility] . complex has front door ramp and has an elevator. no pets. Sometimes his sister stays with him and cleans his home. He uses a cane to ambulate at times but it broke and he needs a new one. He drives but currently has no car. He gets to [employer] by [employer] bus. He has a nebulizer. Used to work in [employer]. Relates that he's not been a smoker. Denies recreational drug use. His left him many years ago he has adult children that he does not see very often. No experience. No travel history. No animal exposures Smoking Status: Never smoker Past Alcohol Use History: Abuse, Heavy Additional Past Alcohol Use History / Comment(s): Pt stated when he was younger he drank heavy but now drinks occ. pt stated he drinks 2-3 -24 ounce cans of beer 2-3 days a week and one day he had 2 shots of vodka at his sisters house but normally he just drinks beer.. Past Drug Use History: None Reported - Past Family History Mother Family Medical History: COPD, CVA/TIA, Dementia Additional Family Medical History / Comment(s): from a stroke Father Family Medical History: Pneumonia Additional Family Medical History / Comment(s): Father of pneumonia when he was close to 80 yrs old. Medications and Allergies Home Medications Medication Instructions Recorded Confirmed Type Docusate [Colace] 100 mg PO DAILY PRN #20 capsule 08/27/17 10/21/17 Rx Ferrous Sulfate [Feosol] 325 mg PO DAILY #30 tab 08/27/17 10/21/17 Rx Pantoprazole [Protonix] 40 mg PO DAILY 09/22/17 10/21/17 History metFORMIN HCL 1,000 mg PO BID 09/23/17 10/21/17 History Magnesium Oxide 400 mg PO DAILY #30 tablet 09/24/17 10/21/17 Rx Nadolol [Corgard] 20 mg PO DAILY #30 tab 09/24/17 10/21/17 Rx Aspirin 81 mg PO DAILY #30 chew 10/10/17 10/21/17 Rx Atorvastatin Calcium [Lipitor] 10 mg PO HS #30 tab 10/10/17 10/21/17 Rx Folic Acid 1 mg PO DAILY@1200 #30 tab 10/10/17 10/21/17 Rx Multivitamins, Thera [Multivitamin 1 each PO DAILY@1200 #30 tab 10/10/17 Rx (formulary)] Thiamine [Vitamin B-1] 100 mg PO DAILY@1200 #30 tab 10/10/17 10/21/17 Rx Allergies Allergy/AdvReac Type Severity Reaction Status Date / Time adhesive tape Allergy Rash/Hives Verified 10/21/17 16:01 egg AdvReac Nausea & Verified 10/21/17 16:01 Vomiting lisinopril AdvReac EYES Verified 10/21/17 16:01 BURN&ITCH/WEAKNESS tomato AdvReac Nausea & Verified 10/21/17 16:01 Vomiting & Diarrhea Physical Exam Vitals: Vital Signs Temp Pulse Pulse Pulse Resp BP BP 10/21/17 20:20 99.3 F 139 H 17 10/21/17 17:48 97.7 F 98 16 134/90 10/21/17 17:36 97.9 F 92 18 114/65 10/21/17 17:14 97.7 F 98 16 10/21/17 16:51 100 18 127/69 10/21/17 15:54 10/21/17 15:21 97.7 F 106 H 18 141/85 BP Pulse Ox 10/21/17 20:20 124/72 94 L 10/21/17 17:48 96 10/21/17 17:36 98 10/21/17 17:14 134/90 96 10/21/17 16:51 98 10/21/17 15:54 96 10/21/17 15:21 98 Intake and Output 10/21/17 10/21/17 10/21/17 06:59 14:59 22:59 Other: Voiding Method Toilet Weight 78.925 kg PHYSICAL EXAMINATION: Patient is lying in the bed comfortably, no acute distress, awake alert and oriented but confused. Intoxicated. HEENT: Normocephalic. Neck is supple. Pupils reactive. Nostrils clear. Oral cavity is moist. Ears reveal no drainage. Neck reveals no JVD, carotid bruits, or thyromegaly. CHEST EXAMINATION: Trachea is central. Symmetrical expansion. Bibasilar diminished air entry. Lung guadalupe clear to auscultation and percussion. CARDIAC: Normal S1, S2 with no gallops. No murmurs ABDOMEN: Soft. Bowel sounds normal. No organomegaly. No abdominal bruits. Extremities: reveal no edema. No clubbing or cyanosis Neurologically awake, alert, oriented x3 , confused. with well-coordinated movements. No focal deficits noted Skin: No rash or skin lesions. Psychiatric: Cooperative. Nonsuicidal Musculoskeletal: No joint swelling or deformity. Normal range of motion. Results CBC & Chem 7: 10/21/17 21:49 10/21/17 21:52 Labs: Abnormal Lab Results - Last 24 Hours (Table) 10/21/17 10/21/17 10/21/17 Range/Units 15:33 15:33 15:33 WBC 3.4 L (3.8-10.6) k/uL RBC 4.03 L (4.30-5.90) m/uL Hgb 11.0 L (13.0-17.5) gm/dL Hct 33.8 L (39.0-53.0) % RDW 21.4 H (11.5-15.5) % Plt Count 99 L (150-450) k/uL Neutrophils # (Manual) 1.05 L (1.3-7.7) k/uL INR 1.2 H (<1.2) Sodium 146 H (137-145) mmol/L Glucose 130 H (74-99) mg/dL POC Glucose (mg/dL) (75-99) mg/dL AST 127 H (17-59) U/L 10/21/17 Range/Units 20:19 WBC (3.8-10.6) k/uL RBC (4.30-5.90) m/uL Hgb (13.0-17.5) gm/dL Hct (39.0-53.0) % RDW (11.5-15.5) % Plt Count (150-450) k/uL Neutrophils # (Manual) (1.3-7.7) k/uL INR (<1.2) Sodium (137-145) mmol/L Glucose (74-99) mg/dL POC Glucose (mg/dL) 137 H (75-99) mg/dL AST (17-59) U/L Thrombosis Risk Factor Assmnt - DVT/VTE Prophylaxis DVT/VTE Prophylaxis: Mechanical Prophylaxis ordered - Choose All That Apply Any of the Below Risk Factors Present?: No Assessment and Plan Assessment: Acute blood loss anemia due to GI bleed hemoglobin 11.0-9.7 since admission Hematemesis and maroon-colored stools Symptomatic anemia with dizziness and lightheadedness Acute alcohol intoxication on admission Recent GI bleed in July 2017 status post EGD showed mild distal esophageal Varices Alcohol abuse Mild thrombocytopenia COPD History of CVA/TIA Diabetes type 2 GERD Hyperlipidemia Hypertension Cervical degenerative disc disease Anxiety/depression Scoliosis DVT prophylaxis with SCDs Plan: Patient be continued on IV fluids and Protonix IV. Patient will be transferred to critical care unit due to hematemesis and active bleeding. Continue to monitor H&H and monitor closely. GI will be consulted. Further recommendations based on clinical course. Prognosis is guarded. Patient was counseled extensively for alcohol abuse. Time with Patient: Greater than 30
[2017-10-22] MEDS: ONDANSETRON 4 MG/2 ML VIAL IVP PRN ×2 (03:46→19:35)
[2017-10-22 04:29] LABS: Anisocytosis Moderate; Basophils % (A) 0 %; Eosinophils % (A) 0 %; HCT 26.5 % (39.0-53.0); HGB 8.3 gm/dL (13.0-17.5); Hypochromasia Slight; Lymphocytes # (A) 1.1 k/uL (1.0-4.8); Lymphocytes % (A) 21 %; MCHC 31.3 g/dL (31.0-37.0); MCV 86.3 fL (80.0-100.0); Mean Platelet Volume 7.8; Microcytosis Slight; Monocytes # (A) 0.2 k/uL (0-1.0); Monocytes % (A) 5 %; Neutrophils # (A) 3.6 k/uL (1.3-7.7); Neutrophils % (A) 72 %; RBC 3.07 m/uL (4.30-5.90); RDW 20.9 % (11.5-15.5)
[2017-10-22 04:37] LABS: Anion Gap 15 mmol/L; Blood Urea Nitrogen 22 mg/dL (9-20); Calcium 7.9 mg/dL (8.4-10.2); Carbon Dioxide 22 mmol/L (22-30); Chloride 104 mmol/L (98-107); Glucose 160 mg/dL (74-99); Magnesium 1.5 mg/dL (1.6-2.3); Phosphorus 2.8 mg/dL (2.5-4.5); Potassium 6.1 mmol/L (3.5-5.1); Sodium 141 mmol/L (137-145)
[2017-10-22 04:43] LABS: Platelet Count 86 k/uL (150-450)
[2017-10-22] MEDS ORDERED: Magnesium Replacement Protocol 1 EACH MISC MISCELLANE PRN (05:08)
[2017-10-22] MEDS: MAGNESIUM SULFATE-D5W PMX 1 GM in DEXTROSE/WATER 1 100ML.BAG IVPB SCH ×2 (05:36→06:41)
[2017-10-22] MEDS ORDERED: FERROUS SULFATE 325 MG TAB PO SCH (07:30)
[2017-10-22] MEDS: NADOLOL 20 MG TAB PO SCH (07:46)
[2017-10-22] MEDS: metFORMIN 500 MG TAB PO SCH ×2 (07:46→20:01)
[2017-10-22] MEDS: MAGNESIUM OXIDE 400 MG TAB PO SCH (07:46)
[2017-10-22] MEDS: PANTOPRAZOLE 40 MG/10 ML VIAL IV SCH ×2 (07:46→20:01)
[2017-10-22] MEDS: SODIUM CHLORIDE 0.9% 1,000 ML IV SCH ×2 (07:54→19:36)
[2017-10-22] MEDS ORDERED: PANTOPRAZOLE 40 MG/10 ML VIAL IV SCH (09:00)
--- NOTE | 2017-10-22 09:03 | P.CONS ---
History of Present Illness - Reason for Consult Consult date: 10/22/17 GI bleeding Requesting physician: Danie Alvarez - History of Present Illness 62-year-old gentleman with a history of active EtOH abuse, esophageal varices, portal gastropathy, iron deficiency anemia, A. fib, CVA diabetes hyponatremia hypertension PE GI bleeds admitted with lightheadedness and dizziness acute hematemesis dark colored bowel movements. Hemoglobin 11 presently 8.3. Platelet 86,000. MCV 86. INR 1.2. BUN 20. Creatinine 0.8. LFTs stable total bili of 0.6. AST 127. ALT 60. AP 94. Lipase 275. Serum alcohol 264. Stool occult blood positive. NG tube inserted with dark colored gastric fluid in canister. Receiving intravenous Sandostatin and Protonix. Midepigastric tenderness. EGD July 2017 small distal esophageal varices without stigmata of bleeding portal gastropathy likely the cause of bleeding not actively bleeding at time of exam. EGD colonoscopy March 2017 for evaluation of iron deficiency anemia and dark- colored bowel movements revealed nonbleeding small distal esophageal varices mild portal hypertensive gastropathy colonoscopy rectal polypectomy 1 was scattered sigmoid diverticulosis. Review of Systems Constitutional: Denies fever, chills, sweats, weight gain, or loss. Admitted with lightheadedness dizziness HEENT: Negative for migraines, blurred vision or loss, earaches, drainage, tinnitus, oral mucosal lesions, dysphagia, or odynophagia. Cardiac: Negative for chest pain, arrhythmias, or palpitation. Respiratory: Negative for shortness of breath, hemoptysis, cough, or sputum production. Gastrointestinal: See HPI for pertinent findings. Genitourinary: Negative for hematuria, urgency, frequency, polyuria, dysuria, or penile discharge. Musculoskeletal: Negative for muscle aches, swelling, arthritis, and arthralgias. Neurologic: Negative for stroke or TIA. Endocrine: Negative for thyroid problems. Skin: Negative for rash or itching. Psychiatric: Negative history for depression and anxiety Past Medical History Past Medical History: Atrial Fibrillation, Chest Pain / Angina, COPD, CVA/TIA, Diabetes Mellitus, GERD/Reflux, GI Bleed, Hyperlipidemia, Hypertension, Pulmonary Embolus (PE) Additional Past Medical History / Comment(s): pt is rt side dominant.Upper and lower GI bleeds/anemia, esophageal varicies/diverticulosis, bilateral ankle edema at times, 2016 bacterial septicemia, TIA, NIDDM type II, 2012, cervical disc disease with neck pain goes into R arm, DDD low back goes into R leg, scoliosis, epilepsy when a child,tinnitus bl ears alcoholic last drank 10/06/17 History of Any Multi-Drug Resistant Organisms: None Reported Past Surgical History: Appendectomy, Cholecystectomy Additional Past Surgical History / Comment(s): 07/20/17 EGD, 03/21/17 EGD/ colonoscopy, other colonoscopies. Past Anesthesia/Blood Transfusion Reactions: Previous Problems w/ Anesthesia Additional Past Anesthesia/Blood Transfusion Reaction / Comm: after appendix removed sob Past Psychological History: Anxiety, Depression Additional Psychological History / Comment(s): Pt lives in an apartment alone in the [facility] . complex has front door ramp and has an elevator. no pets. Sometimes his sister stays with him and cleans his home. He uses a cane to ambulate at times but it broke and he needs a new one. He drives but currently has no car. He gets to [place] [employer] bus. He has a nebulizer. Used to work in [employer]. Relates that he's not been a smoker. Denies recreational drug use. His left him many years ago he has adult children that he does not see very often. No experience. No travel history. No animal exposures Smoking Status: Never smoker Past Alcohol Use History: Abuse, Heavy Additional Past Alcohol Use History / Comment(s): Pt stated when he was younger he drank heavy but now drinks occ. pt stated he drinks 2-3 -24 ounce cans of beer 2-3 days a week and one day he had 2 shots of vodka at his sisters house but normally he just drinks beer.. Past Drug Use History: None Reported - Past Family History Mother Family Medical History: COPD, CVA/TIA, Dementia Additional Family Medical History / Comment(s): from a stroke Father Family Medical History: Pneumonia Additional Family Medical History / Comment(s): Father of pneumonia when he was close to 80 yrs old. Medications and Allergies Home Medications Medication Instructions Recorded Confirmed Type Docusate [Colace] 100 mg PO DAILY PRN #20 capsule 08/27/17 10/21/17 Rx Ferrous Sulfate [Feosol] 325 mg PO DAILY #30 tab 08/27/17 10/21/17 Rx Pantoprazole [Protonix] 40 mg PO DAILY 09/22/17 10/21/17 History metFORMIN HCL 1,000 mg PO BID 09/23/17 10/21/17 History Magnesium Oxide 400 mg PO DAILY #30 tablet 09/24/17 10/21/17 Rx Nadolol [Corgard] 20 mg PO DAILY #30 tab 09/24/17 10/21/17 Rx Aspirin 81 mg PO DAILY #30 chew 10/10/17 10/21/17 Rx Atorvastatin Calcium [Lipitor] 10 mg PO HS #30 tab 10/10/17 10/21/17 Rx Folic Acid 1 mg PO DAILY@1200 #30 tab 10/10/17 10/21/17 Rx Multivitamins, Thera [Multivitamin 1 each PO DAILY@1200 #30 tab 10/10/17 Rx (formulary)] Thiamine [Vitamin B-1] 100 mg PO DAILY@1200 #30 tab 10/10/17 10/21/17 Rx Allergies Allergy/AdvReac Type Severity Reaction Status Date / Time adhesive tape Allergy Rash/Hives Verified 10/21/17 16:01 egg AdvReac Nausea & Verified 10/21/17 16:01 Vomiting lisinopril AdvReac EYES Verified 10/21/17 16:01 BURN&ITCH/WEAKNESS tomato AdvReac Nausea & Verified 10/21/17 16:01 Vomiting & Diarrhea Physical Exam Vitals: Vital Signs Temp Pulse Pulse Pulse Resp BP BP 10/22/17 07:00 116 H 17 166/85 10/22/17 06:30 119 H 27 H 165/83 10/22/17 06:00 113 H 16 143/84 10/22/17 05:30 111 H 17 133/74 10/22/17 05:00 112 H 14 126/64 10/22/17 04:30 110 H 17 134/76 10/22/17 04:00 98.5 F 112 H 18 110/73 10/22/17 03:30 114 H 17 107/69 10/22/17 03:00 116 H 15 140/69 10/22/17 02:30 116 H 19 130/72 10/22/17 02:00 117 H 12 134/70 10/22/17 01:30 121 H 20 128/73 10/22/17 01:00 117 H 18 124/65 10/22/17 00:30 114 H 18 132/74 10/22/17 00:00 99.8 F H 129 H 13 151/83 10/21/17 23:30 133 H 31 H 152/75 10/21/17 23:10 126 H 23 162/80 10/21/17 23:00 124 H 23 150/84 10/21/17 22:50 121 H 25 H 158/78 10/21/17 22:40 118 H 30 H 158/78 10/21/17 22:30 119 H 34 H 155/96 10/21/17 22:20 134 H 36 H 141/87 10/21/17 22:10 115 H 19 141/87 10/21/17 21:38 97.8 F 130 H 17 10/21/17 20:20 99.3 F 139 H 17 10/21/17 17:48 97.7 F 98 16 134/90 10/21/17 17:36 97.9 F 92 18 114/65 10/21/17 17:14 97.7 F 98 16 10/21/17 16:51 100 18 127/69 10/21/17 15:54 10/21/17 15:21 97.7 F 106 H 18 141/85 BP Pulse Ox 10/22/17 07:00 93 L 10/22/17 06:30 95 10/22/17 06:00 97 10/22/17 05:30 97 10/22/17 05:00 97 10/22/17 04:30 97 10/22/17 04:00 96 10/22/17 03:30 96 10/22/17 03:00 96 10/22/17 02:30 96 10/22/17 02:00 97 10/22/17 01:30 97 10/22/17 01:00 97 10/22/17 00:30 96 10/22/17 00:00 94 L 10/21/17 23:30 94 L 10/21/17 23:10 96 10/21/17 23:00 95 10/21/17 22:50 95 10/21/17 22:40 93 L 10/21/17 22:30 95 10/21/17 22:20 91 L 10/21/17 22:10 91 L 10/21/17 21:38 140/83 98 10/21/17 20:20 124/72 94 L 10/21/17 17:48 96 10/21/17 17:36 98 10/21/17 17:14 134/90 96 10/21/17 16:51 98 10/21/17 15:54 96 10/21/17 15:21 98 Intake and Output 10/21/17 10/22/17 10/22/17 22:59 06:59 14:59 Intake Total 919.596 Output Total 3760 Balance -2840.404 Intake: IV 825.75 Magnesium Sulfate-D5w Pmx 200 1 gm In Dextrose/Water 1 100ml.bag @ 100 mls/hr IVPB Q1H [facility] Rx#: [id number] Octreotide 200 mcg In 175.75 Sodium Chloride 0.9% 100 ml @ 50 MCG/HR 25.25 mls/ hr IV .Q3H58M TANYA Rx#: [id number] Sodium Chloride 0.9% 1, 450 000 ml @ 75 mls/hr IV . [id number] [facility]ANYA Rx#:[id number] Intake, IV Titration 93.846 Amount Octreotide 200 mcg In 93.846 Sodium Chloride 0.9% 100 ml @ 50 MCG/HR 25.25 mls/ hr IV .Q3H58M TANYA Rx#: [id number] Output: Urine 1000 Emesis 2760 Other: Voiding Method Toilet Urinal # Voids 1 Weight 78.925 kg 75.9 kg General appearance: The patient is alert, oriented, in no acute distress. HET: Head is normocephalic and atraumatic. Pupils are equal and reactive. Oropharynx is clear without lesions. NG tube with dark near black coffee- ground gastric fluid. Neck: Supple without lymphadenopathy. Trachea midline. Heart: S1 S2. Regular rate and rhythm. Lungs: No crackles or wheezes are heard. Abdomen: Soft, midepigastric tenderness, nondistended with bowel sounds. No peritoneal signs. No palpable organomegaly or masses. Extremities: Normal skin color and turgor. No cyanosis, rash, ulceration, clubbing, or edema. Radial and pedal pulses are 2/4 bilaterally. Neurological: No focal deficits. Strength and sensation are grossly intact. Results CBC & Chem 7: 10/22/17 03:57 06/08/18 03:57 Labs: Abnormal Lab Results - Last 24 Hours (Table) 10/21/17 10/21/17 10/21/17 Range/Units 15:33 15:33 15:33 WBC 3.4 L (3.8-10.6) k/uL RBC 4.03 L (4.30-5.90) m/uL Hgb 11.0 L (13.0-17.5) gm/dL Hct 33.8 L (39.0-53.0) % RDW 21.4 H (11.5-15.5) % Plt Count 99 L (150-450) k/uL Neutrophils # (Manual) 1.05 L (1.3-7.7) k/uL INR 1.2 H (<1.2) Sodium 146 H (137-145) mmol/L Potassium (3.5-5.1) mmol/L BUN (9-20) mg/dL Glucose 130 H (74-99) mg/dL POC Glucose (mg/dL) (75-99) mg/dL Calcium (8.4-10.2) mg/dL Phosphorus (2.5-4.5) mg/dL Magnesium (1.6-2.3) mg/dL AST 127 H (17-59) U/L 10/21/17 10/21/17 10/21/17 Range/Units 20:19 21:35 21:49 WBC (3.8-10.6) k/uL RBC 3.58 L (4.30-5.90) m/uL Hgb 9.7 L (13.0-17.5) gm/dL Hct 30.6 L (39.0-53.0) % RDW 21.4 H (11.5-15.5) % Plt Count 108 L (150-450) k/uL Neutrophils # (Manual) (1.3-7.7) k/uL INR (<1.2) Sodium (137-145) mmol/L Potassium (3.5-5.1) mmol/L BUN (9-20) mg/dL Glucose (74-99) mg/dL POC Glucose (mg/dL) 137 H 145 H (75-99) mg/dL Calcium (8.4-10.2) mg/dL Phosphorus (2.5-4.5) mg/dL Magnesium (1.6-2.3) mg/dL AST (17-59) U/L 10/21/17 10/21/17 10/22/17 Range/Units 21:52 22:13 03:57 WBC (3.8-10.6) k/uL RBC 3.07 L (4.30-5.90) m/uL Hgb 8.3 L (13.0-17.5) gm/dL Hct 26.5 L (39.0-53.0) % RDW 20.9 H (11.5-15.5) % Plt Count 86 L (150-450) k/uL Neutrophils # (Manual) (1.3-7.7) k/uL INR (<1.2) Sodium (137-145) mmol/L Potassium (3.5-5.1) mmol/L BUN (9-20) mg/dL Glucose 151 H (74-99) mg/dL POC Glucose (mg/dL) 155 H (75-99) mg/dL Calcium 7.8 L (8.4-10.2) mg/dL Phosphorus 2.1 L (2.5-4.5) mg/dL Magnesium (1.6-2.3) mg/dL AST (17-59) U/L 10/22/17 Range/Units 03:57 WBC (3.8-10.6) k/uL RBC (4.30-5.90) m/uL Hgb (13.0-17.5) gm/dL Hct (39.0-53.0) % RDW (11.5-15.5) % Plt Count (150-450) k/uL Neutrophils # (Manual) (1.3-7.7) k/uL INR (<1.2) Sodium (137-145) mmol/L Potassium 6.1 H (3.5-5.1) mmol/L BUN 22 H (9-20) mg/dL Glucose 160 H (74-99) mg/dL POC Glucose (mg/dL) (75-99) mg/dL Calcium 7.9 L (8.4-10.2) mg/dL Phosphorus (2.5-4.5) mg/dL Magnesium 1.5 L (1.6-2.3) mg/dL AST (17-59) U/L Assessment and Plan (1) Acute GI bleeding Narrative/Plan: Acute upper GI bleed possible esophageal variceal possible portal gastropathy exacerbated by EtOH abuse Current Visit: Yes Status: Acute Code(s): K92.2 - GASTROINTESTINAL HEMORRHAGE, UNSPECIFIED SNOMED Code(s): 63794332 (2) Esophageal varices Current Visit: Yes Status: Acute Code(s): I85.00 - ESOPHAGEAL VARICES WITHOUT BLEEDING SNOMED Code(s): 02110807 (3) Portal hypertensive gastropathy Current Visit: Yes Status: Acute Code(s): K76.6 - PORTAL HYPERTENSION; K31.89 - OTHER DISEASES OF STOMACH AND DUODENUM SNOMED Code(s): 723419273 (4) Alcohol intoxication Current Visit: Yes Status: Acute Code(s): F10.929 - ALCOHOL USE, UNSPECIFIED WITH INTOXICATION, UNSPECIFIED SNOMED Code(s): 51488235 (5) ETOH abuse Current Visit: Yes Status: Acute Code(s): F10.10 - ALCOHOL ABUSE, UNCOMPLICATED SNOMED Code(s): 65591592 (6) Acute blood loss anemia Current Visit: No Status: Acute Code(s): D62 - ACUTE POSTHEMORRHAGIC ANEMIA SNOMED Code(s): 575499988 (7) Symptomatic anemia Current Visit: Yes Status: Acute Code(s): D64.9 - ANEMIA, UNSPECIFIED SNOMED Code(s): 697659740 Plan: 1. Continue with IV Sandostatin Protonix. 2. EGD. 3. CBC every 6 hours. Nothing by mouth. NG tube decompression. The assembler corncob pipes has discussed the risks, benefits and alternative therapies for the above-mentioned procedure and for both sedation/analgesia as well as necessary blood product administration, if indicated, as they pertain to this patient. The patient has indicated understanding and acceptance of the risks and procedures discussed. Thank you for this kind referral and the opportunity to participate in the care of your patient. This consultation was discussed with Dr. Sheehan. The impression and plan of care have been directed as dictated.
--- NOTE | 2017-10-22 09:35 | XR ---
EXAMINATION TYPE: XR chest 1V DATE OF EXAM: 10/22/2017 COMPARISON: 10/09/2017 HISTORY: Chest pain TECHNIQUE: Single frontal view of the chest is obtained. FINDINGS: NG tube noted are subsegmental changes at the left lung base. No pneumothorax or interstit ial edema. Hypertrophic and degenerative change of the spine. Heart size stable. IMPRESSION: Left basilar atelectasis or infiltrate.
--- NOTE | 2017-10-22 10:05 | P.CNPUL ---
History of Present Illness Consult date: 10/22/17 Requesting physician: Danie Alvarez Reason for consult: other (GI bleeding) Chief complaint: Lightheadedness and dizziness dark colored bowel movements History of present illness: This is a 62-year-old white male with history of alcohol related liver disease, portal hypertension, esophageal varices, portal gastropathy, iron deficiency anemia, type 2 diabetes, patient presented to the hospital with a few days' history of lightheadedness, dizziness, hematemesis, and dark color bowel movements. Patient was intoxicated upon arrival to the ER, had previous EGD on 07/20/2017, and it showed esophageal varices. No active bleeding at the time. Patient was initially admitted to a medical floor, however last night had an episode of hematemesis, bright red blood was noted, patient was transferred to ICU, placed on Protonix and on Sandostatin, seen by GI on consultation, and he is scheduled to undergo EGD later this morning. Hemoglobin on admission was 9.7 , it is 8.3 this morning, patient did not require any blood transfusion so far. Presently patient is hemodynamically stable, nasogastric tube is in place, coffee-ground material noted in the nasogastric tube. Patient is again on Protonix and he is on Sandostatin. Denies any headaches, no blurred vision, no dizziness, he does have intermittent episodes of nausea and vomiting, denies any chest pain, he has occasional cough, no wheezing, denies any abdominal pain , he does have dark bowel movements. Patient continues to have history of alcohol abuse, drinks almost on a regular basis. Review of Systems 14 point review of systems were obtained, please refer to pertinent positives and negatives as noted in HPI. Past Medical History Past Medical History: Atrial Fibrillation, Chest Pain / Angina, COPD, CVA/TIA, Diabetes Mellitus, GERD/Reflux, GI Bleed, Hyperlipidemia, Hypertension, Pulmonary Embolus (PE) Additional Past Medical History / Comment(s): pt is rt side dominant.Upper and lower GI bleeds/anemia, esophageal varicies/diverticulosis, bilateral ankle edema at times, 2016 bacterial septicemia, TIA, NIDDM type II, 2011, cervical disc disease with neck pain goes into R arm, DDD low back goes into R leg, scoliosis, epilepsy when a child,tinnitus bl ears alcoholic last drank 10/06/17 History of Any Multi-Drug Resistant Organisms: None Reported Past Surgical History: Appendectomy, Cholecystectomy Additional Past Surgical History / Comment(s): 07/20/17 EGD, 03/21/17 EGD/ colonoscopy, other colonoscopies. Past Anesthesia/Blood Transfusion Reactions: Previous Problems w/ Anesthesia Additional Past Anesthesia/Blood Transfusion Reaction / Comment(s): after appendix removed sob Past Psychological History: Anxiety, Depression Additional Psychological History / Comment(s): Pt lives in an apartment alone in [facility] . complex has front door ramp and has an elevator. no pets. Sometimes his sister stays with him and cleans his home. He uses a cane to ambulate at times but it broke and he needs a new one. He drives but currently has no car. He gets to [place] by [employer] bus. He has a nebulizer. Used to work in [email or web address]. Relates that he's not been a smoker. Denies recreational drug use. His left him many years ago he has adult children that he does not see very often. No experience. No travel history. No animal exposures Smoking Status: Never smoker Past Alcohol Use History: Abuse, Heavy Additional Past Alcohol Use History / Comment(s): Pt stated when he was younger he drank heavy but now drinks occ. pt stated he drinks 2-3 -24 ounce cans of beer 2-3 days a week and one day he had 2 shots of vodka at his sisters house but normally he just drinks beer.. Past Drug Use History: None Reported - Past Family History Mother Family Medical History: COPD, CVA/TIA, Dementia Additional Family Medical History / Comment(s): from a stroke Father Family Medical History: Pneumonia Additional Family Medical History / Comment(s): Father of pneumonia when he was close to 80 yrs old. Medications and Allergies Home Medications Medication Instructions Recorded Confirmed Type Docusate [Colace] 100 mg PO DAILY PRN #20 capsule 08/27/17 10/21/17 Rx Ferrous Sulfate [Feosol] 325 mg PO DAILY #30 tab 08/27/17 10/21/17 Rx Pantoprazole [Protonix] 40 mg PO DAILY 09/22/17 10/21/17 History metFORMIN HCL 1,000 mg PO BID 09/23/17 10/21/17 History Magnesium Oxide 400 mg PO DAILY #30 tablet 09/24/17 10/21/17 Rx Nadolol [Corgard] 20 mg PO DAILY #30 tab 09/24/17 10/21/17 Rx Aspirin 81 mg PO DAILY #30 chew 10/10/17 10/21/17 Rx Atorvastatin Calcium [Lipitor] 10 mg PO HS #30 tab 10/10/17 10/21/17 Rx Folic Acid 1 mg PO DAILY@1200 #30 tab 10/10/17 10/21/17 Rx Multivitamins, Thera [Multivitamin 1 each PO DAILY@1200 #30 tab 10/10/17 Rx (formulary)] Thiamine [Vitamin B-1] 100 mg PO DAILY@1200 #30 tab 10/10/17 10/21/17 Rx Allergies Allergy/AdvReac Type Severity Reaction Status Date / Time adhesive tape Allergy Rash/Hives Verified 10/21/17 16:01 egg AdvReac Nausea & Verified 10/21/17 16:01 Vomiting lisinopril AdvReac EYES Verified 10/21/17 16:01 BURN&ITCH/WEAKNESS tomato AdvReac Nausea & Verified 10/21/17 16:01 Vomiting & Diarrhea Physical Exam Vitals: Vital Signs Temp Pulse Pulse Pulse Resp BP BP 10/22/17 07:00 116 H 17 166/85 10/22/17 06:30 119 H 27 H 165/83 10/22/17 06:00 113 H 16 143/84 10/22/17 05:30 111 H 17 133/74 10/22/17 05:00 112 H 14 126/64 10/22/17 04:30 110 H 17 134/76 10/22/17 04:00 98.5 F 112 H 18 110/73 10/22/17 03:30 114 H 17 107/69 10/22/17 03:00 116 H 15 140/69 10/22/17 02:30 116 H 19 130/72 10/22/17 02:00 117 H 12 134/70 10/22/17 01:30 121 H 20 128/73 10/22/17 01:00 117 H 18 124/65 10/22/17 00:30 114 H 18 132/74 10/22/17 00:00 99.8 F H 129 H 13 151/83 10/21/17 23:30 133 H 31 H 152/75 10/21/17 23:10 126 H 23 162/80 10/21/17 23:00 124 H 23 150/84 10/21/17 22:50 121 H 25 H 158/78 10/21/17 22:40 118 H 30 H 158/78 10/21/17 22:30 119 H 34 H 155/96 10/21/17 22:20 134 H 36 H 141/87 10/21/17 22:10 115 H 19 141/87 10/21/17 21:38 97.8 F 130 H 17 10/21/17 20:20 99.3 F 139 H 17 10/21/17 17:48 97.7 F 98 16 134/90 10/21/17 17:36 97.9 F 92 18 114/65 10/21/17 17:14 97.7 F 98 16 10/21/17 16:51 100 18 127/69 10/21/17 15:54 10/21/17 15:21 97.7 F 106 H 18 141/85 BP Pulse Ox 10/22/17 07:00 93 L 10/22/17 06:30 95 10/22/17 06:00 97 10/22/17 05:30 97 10/22/17 05:00 97 10/22/17 04:30 97 10/22/17 04:00 96 10/22/17 03:30 96 10/22/17 03:00 96 10/22/17 02:30 96 10/22/17 02:00 97 10/22/17 01:30 97 10/22/17 01:00 97 10/22/17 00:30 96 10/22/17 00:00 94 L 10/21/17 23:30 94 L 10/21/17 23:10 96 10/21/17 23:00 95 10/21/17 22:50 95 10/21/17 22:40 93 L 10/21/17 22:30 95 10/21/17 22:20 91 L 10/21/17 22:10 91 L 10/21/17 21:38 140/83 98 10/21/17 20:20 124/72 94 L 10/21/17 17:48 96 10/21/17 17:36 98 10/21/17 17:14 134/90 96 10/21/17 16:51 98 10/21/17 15:54 96 10/21/17 15:21 98 Intake and Output 10/21/17 10/22/17 10/22/17 22:59 06:59 14:59 Intake Total 919.596 Output Total 3760 Balance -2840.404 Intake: IV 825.75 Magnesium Sulfate-D5w Pmx 200 1 gm In Dextrose/Water 1 100ml.bag @ 100 mls/hr IVPB Q1H [facility] Rx#: [id number] Octreotide 200 mcg In 175.75 Sodium Chloride 0.9% 100 ml @ 50 MCG/HR 25.25 mls/ hr IV .Q3H58M [facility]ANYA Rx#: [id number] Sodium Chloride 0.9% 1, 450 000 ml @ 75 mls/hr IV . [id number] [facility]ANYA Rx#:[id number] Intake, IV Titration 93.846 Amount Octreotide 200 mcg In 93.846 Sodium Chloride 0.9% 100 ml @ 50 MCG/HR 25.25 mls/ hr IV .Q3H58M TANYA Rx#: [id number] Output: Urine 1000 Emesis 2760 Other: Voiding Method Toilet Urinal # Voids 1 Weight 78.925 kg 75.9 kg Physical Exam: Revealed a 62-year-old white male, in no distress. Has a nasogastric tube in place. And nasal cannula. Head: Atraumatic, normocephalic. HEENT:[Neck is supple.] [No neck masses.] [No thyromegaly.] [No JVD.] PERRLA, EOMI, no icterus. Nasogastric tube is noted, black coffee ground gastric fluid is noted. Chest: [Clear throughout, no crackles, no rhonchi, no wheezes.] Symmetrical expansion, no chest wall tenderness. Cardiac Exam: [Normal S1 and S2, no S3 gallop, no murmur.] Abdomen: [Soft, nontender, no megaly, no rebound, no guarding, normal bowel sounds.] Extremities: [No clubbing, no edema, no cyanosis.] Neurological Exam: [No focal neurologic deficit.] Psychiatric: Normal mood affect and mental status examination. Lymphatics: No lymphadenopathy. Results - Laboratory Findings CBC and BMP: 10/22/17 03:57 10/22/17 08:48 PT/INR, D-dimer PT 11.6 sec (9.0-12.0) 10/21/17 15:33 INR 1.2 (<1.2) H 10/21/17 15:33 Abnormal lab findings: Abnormal Labs 10/21/17 10/21/17 10/21/17 15:33 15:33 15:33 WBC 3.4 L RBC 4.03 L Hgb 11.0 L Hct 33.8 L RDW 21.4 H Plt Count 99 L Neutrophils # (Manual) 1.05 L INR 1.2 H Sodium 146 H Potassium BUN Glucose 130 H POC Glucose (mg/dL) Calcium Phosphorus Magnesium AST 127 H 10/21/17 10/21/17 10/21/17 20:19 21:35 21:49 WBC RBC 3.58 L Hgb 9.7 L Hct 30.6 L RDW 21.4 H Plt Count 108 L Neutrophils # (Manual) INR Sodium Potassium BUN Glucose POC Glucose (mg/dL) 137 H 145 H Calcium Phosphorus Magnesium AST 10/21/17 10/21/17 10/22/17 21:52 22:13 03:57 WBC RBC 3.07 L Hgb 8.3 L Hct 26.5 L RDW 20.9 H Plt Count 86 L Neutrophils # (Manual) INR Sodium Potassium BUN Glucose 151 H POC Glucose (mg/dL) 155 H Calcium 7.8 L Phosphorus 2.1 L Magnesium AST 10/22/17 03:57 WBC RBC Hgb Hct RDW Plt Count Neutrophils # (Manual) INR Sodium Potassium 6.1 H BUN 22 H Glucose 160 H POC Glucose (mg/dL) Calcium 7.9 L Phosphorus Magnesium 1.5 L AST - Diagnostic Findings Chest x-ray: image reviewed (Chest x-ray showed mostly minimal left basilar atelectasis.) Assessment and Plan Assessment: Impression: 1 acute upper GI bleeding, most likely secondary to bleeding esophageal varices , although possibility of erosive gastritis and gastric ulcer disease is not entirely ruled out, but felt to be less likely. 2 acute blood loss and anemia secondary to GI blood losses. 3 I'll call intoxication on presentation. 4 portal hypertension and gastropathy with esophageal varices 5 history of alcohol abuse 6 history of multiple comorbidities including paroxysmal atrial fibrillation, CVA, diabetes,2 pulmonary embolism, and hypertension. Recommendation: I fully agree with the present treatment plan, patient is now on Protonix and Sandostatin, he is scheduled to undergo EGD in the next few hours. Continue to monitor serial hemoglobin and hematocrit, continue nasogastric tube keep the patient nothing by mouth for now, alcohol withdrawal precautions. Placed on the alcohol withdrawal protocol. Time with Patient: Greater than 30
[2017-10-22] MEDS ORDERED: IV FLUID CONTINUATION 1,000 ML IV ONE (15:16)
[2017-10-22] MEDS: MULTIVITAMINS, THERA 1 EACH TAB PO SCH (15:50)
[2017-10-22] MEDS: THIAMINE 100 MG TAB PO SCH ×2 (15:50→17:09)
[2017-10-22] MEDS: FOLIC ACID 1 MG TAB PO SCH (15:50)
[2017-10-22] MEDS ORDERED: MIDAZOLAM 2 MG/2 ML VIAL ONE (15:51)
[2017-10-22] MEDS ORDERED: PROPOFOL 10 MG/ML 20 ML VIAL IV ONE (15:51)
[2017-10-22] MEDS ORDERED: SODIUM CHLORIDE 0.9% 500 ML IV ONE (15:56)
--- NOTE | 2017-10-22 16:08 | P.PCN ---
Date of Procedure: 10/22/17 Procedure(s) Performed: BRIEF HISTORY: Patient is a 62-year-old, pleasant, white male with history of alcohol cirrhosis of the liver admitted to the hospital with acute upper GI bleed. He had multiple episodes of hematemesis and black tarry stools. He Is in agreement to 8.3 g/dL. His and scheduled for an upper endoscopy to evaluate further. Last upper endoscopy was done in July 2017 and was noted to have small esophageal varices and portal hypertensive gastropathy. PROCEDURE PERFORMED: Esophagogastroduodenoscopy with variceal ligation. PREOPERATIVE DIAGNOSIS: Acute upper GI bleed. IV sedation per anesthesia. PROCEDURE: After informed consent was obtained, the patient was brought into the endoscopy unit. IV sedation was administered by Anesthesia under continuous monitoring. Initially the Olympus GIF-140 video endoscope was inserted into the mouth. Esophagus intubated without any difficulty. It was gradually advanced into the stomach and duodenum and carefully examined. The bulb and the second part of the duodenum appeared normal. The scope at this time was withdrawn to the stomach, adequately insufflated with air, and upon careful examination, mucosa of the antrum, appeared normal. There were large clots noted in the fundus of the stomach. No gastric varices seen on retroflexion. The scope was then withdrawn into the esophagus. There were large distal esophageal varices identified. There was no active bleeding noted. However there was stigmata of recent bleed. At this time the scope was withdrawn. The esophageal variceal ligation equipment was introduced with the tip of the scope and esophagus ranging without any difficulty. Using suction total of 5 bands were deployed in a spiral fashion from distal to midesophagus area and. The GE junction was located at 39 cm from the incisors. The esophagus appeared normal. There were no erosions or ulcerations seen and the patient tolerated the procedure well. IMPRESSION: 1. Large distal esophageal varices with no active bleeding but stigmata of recent bleed status post variceal ligation as described above. 2. Large clots in the stomach. RECOMMENDATIONS: The findings of this examination were discussed with the patient . He will remain on IV Sandostatin drip. CBC every 12 hours. Nothing by mouth except ice chips.
[2017-10-22 17:12] LABS: Anisocytosis Moderate; Basophils % (A) 0 %; Eosinophils % (A) 1 %; HCT 25.7 % (39.0-53.0); Hypochromasia Slight; Lymphocytes # (A) 1.4 k/uL (1.0-4.8); Lymphocytes % (A) 30 %; MCH 26.8 pg (25.0-35.0); MCHC 30.9 g/dL (31.0-37.0); MCV 86.7 fL (80.0-100.0); Mean Platelet Volume 8.9; Microcytosis Slight; Monocytes # (A) 0.3 k/uL (0-1.0); Monocytes % (A) 7 %; Neutrophils # (A) 2.7 k/uL (1.3-7.7); Neutrophils % (A) 60 %; RBC 2.97 m/uL (4.30-5.90); RDW 21.1 % (11.5-15.5); WBC 4.6 k/uL (3.8-10.6)
[2017-10-22 17:17] LABS: Platelet Count 77 k/uL (150-450)
[2017-10-22] MEDS: ATORVASTATIN 10 MG TAB PO SCH (20:01)
[2017-10-23] MEDS: OCTREOTIDE 200 MCG in SODIUM CHLORIDE 0.9% 100 ML IV SCH ×3 (00:33→10:29)
[2017-10-23] MEDS: HYDROmorphone 0.5 MG/0.5 ML SYRINGE IVP PRN ×3 (01:55→19:59)
[2017-10-23 05:02] LABS: Anion Gap 13 mmol/L; Blood Urea Nitrogen 19 mg/dL (9-20); Calcium 8.2 mg/dL (8.4-10.2); Carbon Dioxide 25 mmol/L (22-30); Chloride 101 mmol/L (98-107); Glucose 133 mg/dL (74-99); Magnesium 1.9 mg/dL (1.6-2.3); Phosphorus 1.7 mg/dL (2.5-4.5); Potassium 3.9 mmol/L (3.5-5.1); Sodium 139 mmol/L (137-145)
[2017-10-23 05:04] LABS: Anisocytosis Moderate; Basophils % (A) 0 %; Eosinophils # (A) 0.1 k/uL (0-0.7); Eosinophils % (A) 1 %; HCT 25.2 % (39.0-53.0); Hypochromasia Slight; Lymphocytes # (A) 1.6 k/uL (1.0-4.8); Lymphocytes % (A) 30 %; MCH 27.5 pg (25.0-35.0); MCHC 31.6 g/dL (31.0-37.0); MCV 86.9 fL (80.0-100.0); Mean Platelet Volume 8.1; Microcytosis Slight; Monocytes # (A) 0.3 k/uL (0-1.0); Monocytes % (A) 6 %; Neutrophils # (A) 3.3 k/uL (1.3-7.7); Neutrophils % (A) 62 %; RBC 2.91 m/uL (4.30-5.90); RDW 20.5 % (11.5-15.5); WBC 5.3 k/uL (3.8-10.6)
[2017-10-23 05:07] LABS: Platelet Count 73 k/uL (150-450)
[2017-10-23] MEDS: SODIUM CHLORIDE 0.9% 1,000 ML IV SCH (06:25)
[2017-10-23] MEDS ORDERED: Magnesium Replacement Protocol 1 EACH MISC MISCELLANE PRN (07:22)
--- NOTE | 2017-10-23 07:22 | XR ---
EXAMINATION TYPE: XR chest 1V DATE OF EXAM: 10/23/2017 COMPARISON: 10/22/2017 HISTORY: Chest pain TECHNIQUE: Single frontal view of the chest is obtained. FINDINGS: Enteric tube has been removed in the interim. Linear retrocardiac opacity appears to have improved in the interim. Remainder the lungs are clear. Mediastinum shifted to the left due to patien t positioning. Multilevel mild degenerative changes of the thoracic spine are seen. No pneumothorax, focal consolidation or pleural effusion. IMPRESSION: Improved aeration of the retrocardiac airspace likely related to minimal subsegmental at electasis.
[2017-10-23] MEDS ORDERED: Phosphorus Replacement Protoco 1 EACH MISC MISCELLANE PRN (07:24)
[2017-10-23] MEDS: SODIUM PHOSPHATE 10 MMOL in SODIUM CHLORIDE 0.9% 250 ML IVPB SCH ×2 (08:49→11:03)
[2017-10-23] MEDS: PANTOPRAZOLE 40 MG/10 ML VIAL IV SCH ×2 (08:53→21:19)
[2017-10-23] MEDS: metFORMIN 500 MG TAB PO SCH ×2 (08:53→21:19)
[2017-10-23] MEDS: NADOLOL 20 MG TAB PO SCH (08:54)
[2017-10-23] MEDS: MAGNESIUM OXIDE 400 MG TAB PO SCH (08:54)
[2017-10-23] MEDS: MAGNESIUM SULFATE-D5W PMX 1 GM in DEXTROSE/WATER 1 100ML.BAG IVPB SCH ×2 (09:04→10:04)
[2017-10-23] MEDS: THIAMINE 100 MG TAB PO SCH ×2 (12:06→17:22)
[2017-10-23] MEDS: FOLIC ACID 1 MG TAB PO SCH (12:06)
[2017-10-23] MEDS: MULTIVITAMINS, THERA 1 EACH TAB PO SCH (12:06)
--- NOTE | 2017-10-23 12:06 | P.PN ---
Subjective Progress Note Date: 10/23/17 Principal diagnosis: Acute upper GI bleeding from esophageal varices This is a 62-year-old white male with history of alcohol related liver disease, portal hypertension, esophageal varices, portal gastropathy, iron deficiency anemia, type 2 diabetes, patient presented to the hospital with a few days' history of lightheadedness, dizziness, hematemesis, and dark color bowel movements. Patient was intoxicated upon arrival to the ER, had previous EGD on 07/20/2017, and it showed esophageal varices. No active bleeding at the time. Patient was initially admitted to a medical floor, however last night had an episode of hematemesis, bright red blood was noted, patient was transferred to ICU, placed on Protonix and on Sandostatin, seen by GI on consultation, and he is scheduled to undergo EGD later this morning. Hemoglobin on admission was 9.7 , it is 8.3 this morning, patient did not require any blood transfusion so far. Presently patient is hemodynamically stable, nasogastric tube is in place, coffee-ground material noted in the nasogastric tube. Patient is again on Protonix and he is on Sandostatin. Denies any headaches, no blurred vision, no dizziness, he does have intermittent episodes of nausea and vomiting, denies any chest pain, he has occasional cough, no wheezing, denies any abdominal pain , he does have dark bowel movements. Patient continues to have history of alcohol abuse, drinks almost on a regular basis. Patient was reevaluated today on 10/23/2017, doing well, underwent EGD, and ligation of esophageal varices yesterday. Patient is hemodynamically stable, his nasogastric tube was removed, no further evidence of active GI bleeding. Hemoglobin this morning is 8.0, electrolytes and renal profile are normal. Patient is calm, and denies any specific complaints. Objective - Vital Signs Vital signs: Vital Signs Temp 98.2 F 10/23/17 08:52 Pulse 73 10/23/17 08:52 Resp 14 10/23/17 10:15 BP 142/98 10/23/17 08:52 Pulse Ox 98 10/23/17 08:52 Intake & Output 10/22/17 10/23/17 10/23/17 18:59 06:59 18:59 Intake Total 1502 1068.242 75 Output Total 1350 551 Balance 152 517.242 75 Weight 76.5 kg 73.4 kg Intake: IV 1200 825 75 Octreotide 200 mcg In 25 Sodium Chloride 0.9% 100 ml @ 50 MCG/HR 25.25 mls/ hr IV .Q3H58M [facility] Rx#: [id number] Sodium Chloride 0.9% 1, 900 825 75 000 ml @ 75 mls/hr IV . [id number] [facility] Rx#:[id number] Intake, IV Titration 202 243.242 Amount Octreotide 200 mcg In 202 243.242 Sodium Chloride 0.9% 100 ml @ 50 MCG/HR 25.25 mls/ hr IV .Q3H58M [facility] Rx#: [id number] Oral 100 Output: Urine 1350 550 Stool 1 Other: Voiding Method Urinal Urinal # Voids 1 2 # Bowel Movements 1 1 - Exam Physical Exam: Revealed a 62-year-old white male, in no distress. Head: Atraumatic, normocephalic. HEENT:[Neck is supple.] [No neck masses.] [No thyromegaly.] [No JVD.] PERRLA, EOMI, no icterus. Chest: [Clear throughout, no crackles, no rhonchi, no wheezes.] Symmetrical expansion, no chest wall tenderness. Cardiac Exam: [Normal S1 and S2, no S3 gallop, no murmur.] Abdomen: [Soft, nontender, no megaly, no rebound, no guarding, normal bowel sounds.] Extremities: [No clubbing, no edema, no cyanosis.] Neurological Exam: [No focal neurologic deficit.] Psychiatric: Normal mood affect and mental status examination. Lymphatics: No lymphadenopathy. - Labs CBC & Chem 7: 10/23/17 04:18 10/23/17 04:18 Labs: Abnormal Lab Results - Last 24 Hours (Table) 10/22/17 10/23/17 10/23/17 Range/Units 16:51 04:18 04:18 RBC 2.97 L 2.91 L (4.30-5.90) m/uL Hgb 8.0 L 8.0 L (13.0-17.5) gm/dL Hct 25.7 L 25.2 L (39.0-53.0) % MCHC 30.9 L (31.0-37.0) g/dL RDW 21.1 H 20.5 H (11.5-15.5) % Plt Count 77 L 73 L (150-450) k/uL Creatinine 0.60 L (0.66-1.25) mg/dL Glucose 133 H (74-99) mg/dL Calcium 8.2 L (8.4-10.2) mg/dL Phosphorus 1.7 L (2.5-4.5) mg/dL Assessment and Plan Assessment: Impression: 1 acute upper GI bleeding, secondary to esophageal varices, status post EGD and ligation of esophageal varices. 2 acute blood loss and anemia secondary to GI blood losses. 3 alcohol intoxication on presentation. 4 portal hypertension and gastropathy with esophageal varices 5 history of alcohol abuse 6 history of multiple comorbidities including paroxysmal atrial fibrillation, CVA, diabetes,2 pulmonary embolism, and hypertension. Recommendation: Continue present supportive care measures, transfer patient out of the ICU to a medical floor, will continue to follow. Time with Patient: Less than 30
[2017-10-23 12:07] LABS: Glucose,Whole Blood 157 mg/dL (75-99)
--- NOTE | 2017-10-23 15:40 | PN ---
PROGRESS NOTE DATE OF SERVICE: 10/23/2017 The patient is a 62-year-old white male admitted to hospital with acute upper GI bleed. He has history of alcoholic cirrhosis of the liver with portal hypertension, previous history of esophageal varices and portal gastropathy was admitted to hospital with hematemesis, dropped his hemoglobin from 10 to 8 g/dL. He underwent an upper endoscopy by me yesterday with esophageal variceal ligation. Upper endoscopy revealed a large amount of fresh blood in the stomach with clots and evidence of esophageal varices, which were not bleeding. The patient was on IV Sandostatin drip and was doing well. His hemoglobin remained stable at 8 g/dL this morning. No further episodes of hematemesis or melena. He denies any abdominal pain. No fever, chills, or night sweats. PHYSICAL EXAMINATION: On physical examination, he appears comfortable. No apparent distress. Vital signs are stable. Blood pressure is 137/89, pulse rate is 70, temperature 98.2. HEENT Examination: Unremarkable. Conjunctivae pink. Sclerae anicteric. Oral cavity, no lesions. NECK: No JVD or lymph node enlargement. Chest was clear to auscultation. HEART: Regular rate and rhythm. ABDOMEN: Soft. Bowel sounds are positive. No organomegaly. EXTREMITIES: No pedal edema. SKIN: No rashes. NEURO: Alert and oriented x3. No focal deficits. LABS: Lab from today WBC 5.3, hemoglobin 8, platelets are 73,000. Basic metabolic panel is within normal limits. IMPRESSION: 1. Acute upper gastrointestinal bleed secondary to esophageal varices, status post EGD with variceal ligation yesterday. He was on IV Sandostatin drip that has been discontinued this morning. He remains hemodynamically stable with no further bleeding. Hemoglobin stable at 8 g/dL. 2. History of alcoholic cirrhosis of the liver, currently actively drinking. RECOMMENDATIONS: 1. Agree with transfer out of the ICU. 2. Start on a clear liquid diet. 3. Continue with IV Protonix 40 mg q.12 hours. 4. Repeat CBC every 12 hours and we will follow the patient closely during his hospital stay. Thank you for this consultation. MMODL / IJN: [id number] /
[2017-10-23] MEDS: ONDANSETRON 4 MG/2 ML VIAL IVP PRN ×2 (16:02→19:58)
[2017-10-23 17:18] LABS: Glucose,Whole Blood 162 mg/dL (75-99)
[2017-10-23 20:28] LABS: Glucose,Whole Blood 155 mg/dL (75-99)
[2017-10-23] MEDS: ATORVASTATIN 10 MG TAB PO SCH (21:19)
[2017-10-23 21:29] LABS: Anisocytosis Moderate; Basophils % (A) 0 %; Eosinophils # (A) 0.1 k/uL (0-0.7); Eosinophils % (A) 2 %; HCT 24.7 % (39.0-53.0); HGB 7.9 gm/dL (13.0-17.5); Hypochromasia Slight; Lymphocytes # (A) 1.3 k/uL (1.0-4.8); Lymphocytes % (A) 25 %; MCH 27.3 pg (25.0-35.0); MCHC 31.7 g/dL (31.0-37.0); Mean Platelet Volume 8.7; Microcytosis Slight; Monocytes # (A) 0.2 k/uL (0-1.0); Monocytes % (A) 5 %; Neutrophils # (A) 3.4 k/uL (1.3-7.7); Neutrophils % (A) 66 %; RBC 2.88 m/uL (4.30-5.90); RDW 20.6 % (11.5-15.5); WBC 5.1 k/uL (3.8-10.6)
[2017-10-23 21:30] LABS: Platelet Count 81 k/uL (150-450)
--- NOTE | 2017-10-23 23:28 | P.PN ---
Subjective Progress Note Date: 10/22/17 Principal diagnosis: Acute GI bleed Patient is a 62-year-old male with a known history of alcohol abuse, COPD, CVA/ TIA, diabetes type 2, GERD and history of previous GI bleed, pulmonary embolism and esophageal varices/diverticulosis and multiple other medical problems came to ER with complaints of feeling dizziness and lightheadedness. Patient says that he woke up feeling very dizzy. Patient was alcohol intoxicated on admission. Patient is also complaining of dark-colored stools/maroon colored stools. FOBT is positive. Patient was previously admitted to hospital with low hemoglobin and rectal bleeding this year. Patient had EGD done on 2017 showed mild distal esophageal varices. No active bleeding was noted at the time. Otherwise denied any chest pain or shortness of breath. No leg swelling. No nausea vomiting or abdominal pain. No diarrhea. No dysuria or hematuria. Patient was initially admitted to telemetry unit. Patient did have 2-3 episodes of hematemesis with bright red blood and was transferred to intensive care unit for further management. Repeat hemoglobin found to be 9.7 Patient was presented with hemoglobin 5.4 in July 2017 EKG sinus tachycardia Serum alcohol 264 Hemoglobin 11.0 on admission dropped down to 9.7 10/22/2017 Patient denied any further hematemesis. Patient underwent EGD today IMPRESSION: 1. Large distal esophageal varices with no active bleeding but stigmata of recent bleed status post variceal ligation as described above. 2. Large clots in the stomach. Hemoglobin is at 8.3 and 8.0. No fever no chills. No chest pain or short of breath. Tolerating oral diet. Patient is being transferred to the medical floor today . Patient is being continued on Protonix. All other review of systems negative except about Current medications reviewed Objective - Vital Signs Vital signs: Vital Signs Temp 98.5 F 10/22/17 08:00 Pulse 90 10/22/17 15:00 Resp 21 10/22/17 15:00 BP 125/75 10/22/17 15:00 Pulse Ox 98 10/22/17 15:00 Intake & Output 10/21/17 10/22/17 10/22/17 18:59 06:59 18:59 Intake Total 979.002 3269 Output Total 3760 0 Balance -2840.404 1076 Weight 78.925 kg 75.9 kg 76.5 kg Intake: IV 825.75 975 Magnesium Sulfate-D5w Pmx 200 1 gm In Dextrose/Water 1 100ml.bag @ 100 mls/hr IVPB Q1H [facility] Rx#: [id number] Octreotide 200 mcg In 175.75 25 Sodium Chloride 0.9% 100 ml @ 50 MCG/HR 25.25 mls/ hr IV .Q3H58M [facility] Rx#: [id number] Sodium Chloride 0.9% 1, 450 675 000 ml @ 75 mls/hr IV . [id number] [facility] Rx#:[id number] Intake, IV Titration 93.846 101 Amount Octreotide 200 mcg In 93.846 101 Sodium Chloride 0.9% 100 ml @ 50 MCG/HR 25.25 mls/ hr IV .Q3H58M [facility] Rx#: [id number] Output: Urine 1000 0 Emesis 2760 Other: Voiding Method Urinal # Voids 1 1 # Bowel Movements 1 - Exam PHYSICAL EXAMINATION: Patient is lying in the bed comfortably, no acute distress, awake alert and oriented. Patient seems drowsy.. HEENT: Normocephalic. Neck is supple. Pupils reactive. Nostrils clear. Oral cavity is moist. Ears reveal no drainage. Neck reveals no JVD, carotid bruits, or thyromegaly. CHEST EXAMINATION: Trachea is central. Symmetrical expansion. Lung guadalupe clear to auscultation and percussion. CARDIAC: Normal S1, S2 with no gallops. No murmurs ABDOMEN: Soft. Bowel sounds normal. No organomegaly. No abdominal bruits. Extremities: reveal no edema. No clubbing or cyanosis Neurologically awake, alert, oriented x3 with well-coordinated movements. No focal deficits noted Skin: No rash or skin lesions. Psychiatric: Coperative. Nonsuicidal Musculoskeletal: No joint swelling or deformity. Normal range of motion. - Labs CBC & Chem 7: 10/23/17 21:19 10/23/17 04:18 Labs: Abnormal Lab Results - Last 24 Hours (Table) 10/21/17 10/21/17 10/21/17 Range/Units 20:19 21:35 21:49 RBC 3.58 L (4.30-5.90) m/uL Hgb 9.7 L (13.0-17.5) gm/dL Hct 30.6 L (39.0-53.0) % RDW 21.4 H (11.5-15.5) % Plt Count 108 L (150-450) k/uL Potassium (3.5-5.1) mmol/L BUN (9-20) mg/dL Glucose (74-99) mg/dL POC Glucose (mg/dL) 137 H 145 H (75-99) mg/dL Calcium (8.4-10.2) mg/dL Phosphorus (2.5-4.5) mg/dL Magnesium (1.6-2.3) mg/dL 10/21/17 10/21/17 10/22/17 Range/Units 21:52 22:13 03:57 RBC 3.07 L (4.30-5.90) m/uL Hgb 8.3 L (13.0-17.5) gm/dL Hct 26.5 L (39.0-53.0) % RDW 20.9 H (11.5-15.5) % Plt Count 86 L (150-450) k/uL Potassium (3.5-5.1) mmol/L BUN (9-20) mg/dL Glucose 151 H (74-99) mg/dL POC Glucose (mg/dL) 155 H (75-99) mg/dL Calcium 7.8 L (8.4-10.2) mg/dL Phosphorus 2.1 L (2.5-4.5) mg/dL Magnesium (1.6-2.3) mg/dL 10/22/17 Range/Units 03:57 RBC (4.30-5.90) m/uL Hgb (13.0-17.5) gm/dL Hct (39.0-53.0) % RDW (11.5-15.5) % Plt Count (150-450) k/uL Potassium 6.1 H (3.5-5.1) mmol/L BUN 22 H (9-20) mg/dL Glucose 160 H (74-99) mg/dL POC Glucose (mg/dL) (75-99) mg/dL Calcium 7.9 L (8.4-10.2) mg/dL Phosphorus (2.5-4.5) mg/dL Magnesium 1.5 L (1.6-2.3) mg/dL Assessment and Plan Assessment: Acute blood loss anemia due to GI bleed hemoglobin 11.0-9.7-8.3. Status post EGD and ligation of varices. Hematemesis and maroon-colored stools Symptomatic anemia with dizziness and lightheadedness Acute alcohol intoxication on admission Recent GI bleed in July 2017 status post EGD showed mild distal esophageal Varices Alcohol abuse Mild thrombocytopenia COPD History of CVA/TIA Diabetes type 2 GERD Hyperlipidemia Hypertension Cervical degenerative disc disease Anxiety/depression Scoliosis DVT prophylaxis with SCDs Plan: Patient be continued on IV fluids and Protonix IV. Patient is being transferred to medical floor today. Hemoglobin is fairly stable.. Continue to monitor H&H and monitor closely. GI will be consulted. Further recommendations based on clinical course. Prognosis is guarded. Patient was counseled extensively for alcohol abuse. Time with Patient: Greater than 30
--- NOTE | 2017-10-23 23:40 | P.PN ---
Subjective Progress Note Date: 10/23/17 Principal diagnosis: Acute GI bleed Patient is a 62-year-old male with a known history of alcohol abuse, COPD, CVA/ TIA, diabetes type 2, GERD and history of previous GI bleed, pulmonary embolism and esophageal varices/diverticulosis and multiple other medical problems came to ER with complaints of feeling dizziness and lightheadedness. Patient says that he woke up feeling very dizzy. Patient was alcohol intoxicated on admission. Patient is also complaining of dark-colored stools/maroon colored stools. FOBT is positive. Patient was previously admitted to hospital with low hemoglobin and rectal bleeding this year. Patient had EGD done on 2017 showed mild distal esophageal varices. No active bleeding was noted at the time. Otherwise denied any chest pain or shortness of breath. No leg swelling. No nausea vomiting or abdominal pain. No diarrhea. No dysuria or hematuria. Patient was initially admitted to telemetry unit. Patient did have 2-3 episodes of hematemesis with bright red blood and was transferred to intensive care unit for further management. Repeat hemoglobin found to be 9.7 Patient was presented with hemoglobin 5.4 in July 2017 EKG sinus tachycardia Serum alcohol 264 Hemoglobin 11.0 on admission dropped down to 9.7 10/22/2017 Patient denied any further hematemesis. Patient underwent EGD today IMPRESSION: 1. Large distal esophageal varices with no active bleeding but stigmata of recent bleed status post variceal ligation as described above. 2. Large clots in the stomach. Hemoglobin is at 8.3 and 8.0. No fever no chills. No chest pain or short of breath. Tolerating oral diet. Patient is being transferred to the medical floor today . Patient is being continued on Protonix. 10/23/2017 Patient denied any complaints of chest pain or shortness of breath. No nausea vomiting abdominal pain. Hemoglobin is stable at 8.0. No hematemesis. Did have some dark-colored stools last night. All other review of systems negative except about Current medications reviewed Objective - Vital Signs Vital signs: Vital Signs Temp 97.8 F 10/23/17 22:47 Pulse 61 10/23/17 22:47 Resp 18 10/23/17 22:47 BP 123/75 10/23/17 22:47 Pulse Ox 97 10/23/17 22:47 Intake & Output 10/23/17 10/23/17 10/24/17 06:59 18:59 06:59 Intake Total 1068.242 75 Output Total 551 Balance 517.242 75 Weight 73.4 kg Intake: IV 825 75 Sodium Chloride 0.9% 1, 825 75 000 ml @ 75 mls/hr IV . [id number] [facility] Rx#:[id number] Intake, IV Titration 243.242 Amount Octreotide 200 mcg In 243.242 Sodium Chloride 0.9% 100 ml @ 50 MCG/HR 25.25 mls/ hr IV .Q3H58M [facility] Rx#: [id number] Output: Urine 550 Stool 1 Other: Voiding Method Urinal Urinal # Voids 2 2 2 # Bowel Movements 1 - Exam PHYSICAL EXAMINATION: Patient is lying in the bed comfortably, no acute distress, awake alert and oriented. HEENT: Normocephalic. Neck is supple. Pupils reactive. Nostrils clear. Oral cavity is moist. Ears reveal no drainage. Neck reveals no JVD, carotid bruits, or thyromegaly. CHEST EXAMINATION: Trachea is central. Symmetrical expansion. Lung guadalupe clear to auscultation and percussion. CARDIAC: Normal S1, S2 with no gallops. No murmurs ABDOMEN: Soft. Bowel sounds normal. No organomegaly. No abdominal bruits. Extremities: reveal no edema. No clubbing or cyanosis Neurologically awake, alert, oriented x3 with well-coordinated movements. No focal deficits noted Skin: No rash or skin lesions. Psychiatric: Coperative. Nonsuicidal Musculoskeletal: No joint swelling or deformity. Normal range of motion. - Labs CBC & Chem 7: 10/23/17 21:19 10/23/17 04:18 Labs: Abnormal Lab Results - Last 24 Hours (Table) 10/23/17 10/23/17 10/23/17 Range/Units 04:18 04:18 12:04 RBC 2.91 L (4.30-5.90) m/uL Hgb 8.0 L (13.0-17.5) gm/dL Hct 25.2 L (39.0-53.0) % RDW 20.5 H (11.5-15.5) % Plt Count 73 L (150-450) k/uL Creatinine 0.60 L (0.66-1.25) mg/dL Glucose 133 H (74-99) mg/dL POC Glucose (mg/dL) 157 H (75-99) mg/dL Calcium 8.2 L (8.4-10.2) mg/dL Phosphorus 1.7 L (2.5-4.5) mg/dL 10/23/17 10/23/17 10/23/17 Range/Units 17:15 20:27 21:19 RBC 2.88 L (4.30-5.90) m/uL Hgb 7.9 L (13.0-17.5) gm/dL Hct 24.7 L (39.0-53.0) % RDW 20.6 H (11.5-15.5) % Plt Count 81 L (150-450) k/uL Creatinine (0.66-1.25) mg/dL Glucose (74-99) mg/dL POC Glucose (mg/dL) 162 H 155 H (75-99) mg/dL Calcium (8.4-10.2) mg/dL Phosphorus (2.5-4.5) mg/dL Assessment and Plan Assessment: Acute blood loss anemia due to GI bleed hemoglobin 11.0-9.7-8.3. Status post EGD and ligation of varices. Hematemesis and maroon-colored stools Symptomatic anemia with dizziness and lightheadedness Acute alcohol intoxication on admission Recent GI bleed in July 2017 status post EGD showed mild distal esophageal Varices Alcohol abuse Mild thrombocytopenia COPD History of CVA/TIA Diabetes type 2 GERD Hyperlipidemia Hypertension Cervical degenerative disc disease Anxiety/depression Scoliosis DVT prophylaxis with SCDs Plan: Patient be continued on IV fluids and Protonix IV. Patient is being transferred to medical floor today. Hemoglobin is fairly stable.. Continue to monitor H&H and monitor closely. GI will be consulted. Further recommendations based on clinical course. Prognosis is guarded. Patient was counseled extensively for alcohol abuse. Time with Patient: Greater than 30
[2017-10-24] MEDS: SODIUM CHLORIDE 0.9% 1,000 ML IV SCH ×2 (00:18→13:10)
[2017-10-24] MEDS: ONDANSETRON 4 MG/2 ML VIAL IVP PRN (06:31)
[2017-10-24 07:23] LABS: Glucose,Whole Blood 124 mg/dL (75-99)
[2017-10-24] MEDS: NADOLOL 20 MG TAB PO SCH (07:56)
[2017-10-24] MEDS: metFORMIN 500 MG TAB PO SCH ×2 (07:56→21:28)
[2017-10-24] MEDS: MAGNESIUM OXIDE 400 MG TAB PO SCH (07:56)
[2017-10-24] MEDS: PANTOPRAZOLE 40 MG/10 ML VIAL IV SCH (08:00)
--- NOTE | 2017-10-24 08:11 | XR ---
EXAMINATION: XR chest 1V DATE AND TIME: 10/24/2017 7:23 AM ORDERING PROVIDER: Barry Marcus MD~[id number] CLINICAL INDICATION: NG in place TECHNIQUE: AP portable upright COMPARISON: 10/23/2017 5:18 AM AP portable upright DESCRIPTION: The lungs are nearly entirely clear, with only mild partial airlessness in the retrocard iac lung, likely atelectasis. The pleural spaces are negative. The cardiac silhouette is not enlarged. The mediastinal and pleural silhouettes are unremarkable. The skeletal structures are intact without focal findings. The soft tis sues are unremarkable. IMPRESSION: Mild retrocardiac airlessness.
[2017-10-24 09:08] LABS: Anisocytosis Moderate; Basophils % (A) 0 %; Eosinophils # (A) 0.1 k/uL (0-0.7); Eosinophils % (A) 2 %; HCT 26.8 % (39.0-53.0); HGB 8.1 gm/dL (13.0-17.5); Hypochromasia Slight; Lymphocytes # (A) 1.2 k/uL (1.0-4.8); Lymphocytes % (A) 21 %; MCH 26.3 pg (25.0-35.0); MCHC 30.3 g/dL (31.0-37.0); MCV 86.9 fL (80.0-100.0); Mean Platelet Volume 9.7; Microcytosis Slight; Monocytes # (A) 0.2 k/uL (0-1.0); Monocytes % (A) 3 %; Neutrophils # (A) 4.3 k/uL (1.3-7.7); Neutrophils % (A) 73 %; RBC 3.09 m/uL (4.30-5.90); RDW 20.8 % (11.5-15.5); WBC 5.9 k/uL (3.8-10.6)
[2017-10-24 09:09] LABS: Platelet Count 97 k/uL (150-450)
[2017-10-24 09:14] LABS: Anion Gap 15 mmol/L; Blood Urea Nitrogen 9 mg/dL (9-20); Carbon Dioxide 24 mmol/L (22-30); Chloride 99 mmol/L (98-107); Glucose 219 mg/dL (74-99); Magnesium 1.5 mg/dL (1.6-2.3); Phosphorus 1.5 mg/dL (2.5-4.5); Sodium 138 mmol/L (137-145)
[2017-10-24 09:31] LABS: Potassium 2.9 mmol/L (3.5-5.1)
[2017-10-24] MEDS ORDERED: Magnesium Replacement Protocol 1 EACH MISC MISCELLANE PRN (09:34)
[2017-10-24] MEDS ORDERED: Potassium Replacement Protocol 1 EACH MISC MISCELLANE PRN (09:35)
[2017-10-24] MEDS: POTASSIUM CHLORIDE ER 20 MEQ TAB.ER PO SCH ×3 (10:24→13:09)
[2017-10-24] MEDS: MAGNESIUM SULFATE-D5W PMX 1 GM in DEXTROSE/WATER 1 100ML.BAG IVPB SCH ×2 (10:24→11:48)
[2017-10-24 11:43] LABS: Glucose,Whole Blood 148 mg/dL (75-99)
[2017-10-24] MEDS: FOLIC ACID 1 MG TAB PO SCH (13:09)
[2017-10-24] MEDS: MULTIVITAMINS, THERA 1 EACH TAB PO SCH (13:09)
[2017-10-24] MEDS: THIAMINE 100 MG TAB PO SCH ×2 (13:10→17:57)
[2017-10-24 17:09] LABS: Glucose,Whole Blood 103 mg/dL (75-99)
[2017-10-24] MEDS: PANTOPRAZOLE 40 MG TABLET PO SCH (17:57)
[2017-10-24 21:20] LABS: Anisocytosis Moderate; Basophils % (A) 0 %; Eosinophils # (A) 0.1 k/uL (0-0.7); Eosinophils % (A) 2 %; Glucose,Whole Blood 133 mg/dL (75-99); HCT 22.1 % (39.0-53.0); HGB 7.1 gm/dL (13.0-17.5); Lymphocytes # (A) 1.3 k/uL (1.0-4.8); Lymphocytes % (A) 26 %; MCH 27.4 pg (25.0-35.0); MCHC 32.1 g/dL (31.0-37.0); MCV 85.5 fL (80.0-100.0); Mean Platelet Volume 9.8; Microcytosis Slight; Monocytes # (A) 0.3 k/uL (0-1.0); Monocytes % (A) 6 %; Neutrophils % (A) 64 %; Platelet Count 77 k/uL (150-450); RBC 2.58 m/uL (4.30-5.90); RDW 20.8 % (11.5-15.5); WBC 4.8 k/uL (3.8-10.6)
[2017-10-24] MEDS: ATORVASTATIN 10 MG TAB PO SCH (21:28)
--- NOTE | 2017-10-24 21:41 | PN ---
PROGRESS NOTE DATE OF SERVICE: 10/24/2017 Patient is a 62-year-old white male admitted to the hospital with acute esophageal variceal bleeding. He underwent an upper endoscopy with variceal ligation 2 days ago and was transferred from the ICU yesterday. He remains hemodynamically stable. He had 3 large black tarry stools yesterday. No hematemesis. He denies any abdominal pain. PHYSICAL EXAMINATION: Appears comfortable in no apparent distress. VITAL SIGNS: Stable. Blood pressure is 122/87, pulse rate 66, temperature 97.4. HEENT examination unremarkable. Conjunctivae pink. Sclerae anicteric. Oral cavity no lesions. Neck: No jugular venous distention or lymph node enlargement. Chest was clear to auscultation. HEART: Regular rate and rhythm. ABDOMEN: Soft. Bowel sounds are positive. Slightly distended. Extremities: No pedal edema. Skin no rashes. NEUROLOGIC: Alert and oriented x3. No focal deficits. LABS: WBC 5.9, hemoglobin 8.1, platelets 97,000. Basic metabolic panel: Potassium was 2.9. Rest of the labs are normal. IMPRESSION: 1. Acute esophageal variceal bleeding status post EGD with variceal ligation 2 days ago. Patient hemodynamically stable. No further bleeding for the last 2 days. Hemoglobin stable. 2. Alcoholic cirrhosis of the liver with portal hypertension. 3. Hypokalemia. RECOMMENDATIONS: 1. Continue with IV Protonix. 2. Advance diet as tolerated. 3. CBC in the morning. 4. Replace potassium. 5. We will follow the patient closely. Thank you for this consultation. MMODL / IJN: [id number] /
--- NOTE | 2017-10-25 00:02 | P.PN ---
Subjective Progress Note Date: 10/24/17 Principal diagnosis: Acute GI bleed Patient is a 62-year-old male with a known history of alcohol abuse, COPD, CVA/ TIA, diabetes type 2, GERD and history of previous GI bleed, pulmonary embolism and esophageal varices/diverticulosis and multiple other medical problems came to ER with complaints of feeling dizziness and lightheadedness. Patient says that he woke up feeling very dizzy. Patient was alcohol intoxicated on admission. Patient is also complaining of dark-colored stools/maroon colored stools. FOBT is positive. Patient was previously admitted to hospital with low hemoglobin and rectal bleeding this year. Patient had EGD done on 2017 showed mild distal esophageal varices. No active bleeding was noted at the time. Otherwise denied any chest pain or shortness of breath. No leg swelling. No nausea vomiting or abdominal pain. No diarrhea. No dysuria or hematuria. Patient was initially admitted to telemetry unit. Patient did have 2-3 episodes of hematemesis with bright red blood and was transferred to intensive care unit for further management. Repeat hemoglobin found to be 9.7 Patient was presented with hemoglobin 5.4 in July 2017 EKG sinus tachycardia Serum alcohol 264 Hemoglobin 11.0 on admission dropped down to 9.7 10/22/2017 Patient denied any further hematemesis. Patient underwent EGD today IMPRESSION: 1. Large distal esophageal varices with no active bleeding but stigmata of recent bleed status post variceal ligation as described above. 2. Large clots in the stomach. Hemoglobin is at 8.3 and 8.0. No fever no chills. No chest pain or short of breath. Tolerating oral diet. Patient is being transferred to the medical floor today . Patient is being continued on Protonix. 10/23/2017 Patient denied any complaints of chest pain or shortness of breath. No nausea vomiting abdominal pain. Hemoglobin is stable at 8.0. No hematemesis. Did have some dark-colored stools last night. 10/24/2017 Patient says that he is feeling much better today. Hemoglobin improved to 8.3. Patient was started on solid diet. Clinically overall much improved. GI is following. Anticipate discharge next 24 hours. All other review of systems negative except about Current medications reviewed Objective - Vital Signs Vital signs: Vital Signs Temp 97.8 F 06/10/18 05:50 Pulse 66 10/24/17 05:50 Resp 18 10/24/17 05:50 BP 131/76 10/24/17 05:50 Pulse Ox 98 10/24/17 05:50 Intake & Output 10/23/17 10/24/17 10/24/17 18:59 06:59 18:59 Intake Total 75 Balance 75 Intake: IV 75 Sodium Chloride 0.9% 1, 75 000 ml @ 75 mls/hr IV . [id number] Rx#:[id number] Other: Voiding Method Urinal Urinal # Voids 2 1 - Exam PHYSICAL EXAMINATION: Patient is lying in the bed comfortably, no acute distress, awake alert and oriented. HEENT: Normocephalic. Neck is supple. Pupils reactive. Nostrils clear. Oral cavity is moist. Ears reveal no drainage. Neck reveals no JVD, carotid bruits, or thyromegaly. CHEST EXAMINATION: Trachea is central. Symmetrical expansion. Lung guadalupe clear to auscultation and percussion. CARDIAC: Normal S1, S2 with no gallops. No murmurs ABDOMEN: Soft. Bowel sounds normal. No organomegaly. No abdominal bruits. Extremities: reveal no edema. No clubbing or cyanosis Neurologically awake, alert, oriented x3 with well-coordinated movements. No focal deficits noted Skin: No rash or skin lesions. Psychiatric: Coperative. Nonsuicidal Musculoskeletal: No joint swelling or deformity. Normal range of motion. - Labs CBC & Chem 7: 10/24/17 20:59 10/24/17 08:31 Labs: Abnormal Lab Results - Last 24 Hours (Table) 10/23/17 10/23/17 10/23/17 Range/Units 17:15 20:27 21:19 RBC 2.88 L (4.30-5.90) m/uL Hgb 7.9 L (13.0-17.5) gm/dL Hct 24.7 L (39.0-53.0) % MCHC (31.0-37.0) g/dL RDW 20.6 H (11.5-15.5) % Plt Count 81 L (150-450) k/uL Potassium (3.5-5.1) mmol/L Glucose (74-99) mg/dL POC Glucose (mg/dL) 162 H 155 H (75-99) mg/dL Calcium (8.4-10.2) mg/dL Phosphorus (2.5-4.5) mg/dL Magnesium (1.6-2.3) mg/dL 10/24/17 10/24/17 10/24/17 Range/Units 07:19 08:31 08:31 RBC 3.09 L (4.30-5.90) m/uL Hgb 8.1 L (13.0-17.5) gm/dL Hct 26.8 L (39.0-53.0) % MCHC 30.3 L (31.0-37.0) g/dL RDW 20.8 H (11.5-15.5) % Plt Count 97 L (150-450) k/uL Potassium 2.9 L* (3.5-5.1) mmol/L Glucose 219 H (74-99) mg/dL POC Glucose (mg/dL) 124 H (75-99) mg/dL Calcium 8.0 L (8.4-10.2) mg/dL Phosphorus 1.5 L (2.5-4.5) mg/dL Magnesium 1.5 L (1.6-2.3) mg/dL 10/24/17 Range/Units 11:41 RBC (4.30-5.90) m/uL Hgb (13.0-17.5) gm/dL Hct (39.0-53.0) % MCHC (31.0-37.0) g/dL RDW (11.5-15.5) % Plt Count (150-450) k/uL Potassium (3.5-5.1) mmol/L Glucose (74-99) mg/dL POC Glucose (mg/dL) 148 H (75-99) mg/dL Calcium (8.4-10.2) mg/dL Phosphorus (2.5-4.5) mg/dL Magnesium (1.6-2.3) mg/dL Assessment and Plan Assessment: Acute blood loss anemia due to GI bleed hemoglobin 11.0-9.7-8.3. Status post EGD and ligation of varices. Hematemesis and maroon-colored stools Symptomatic anemia with dizziness and lightheadedness Acute alcohol intoxication on admission Recent GI bleed in July 2017 status post EGD showed mild distal esophageal Varices Alcohol abuse Mild thrombocytopenia COPD History of CVA/TIA Diabetes type 2 GERD Hyperlipidemia Hypertension Cervical degenerative disc disease Anxiety/depression Scoliosis DVT prophylaxis with SCDs Plan: Patient be continued on IV fluids and Protonix IV. Patient is being transferred to medical floor today. Hemoglobin is fairly stable.. Continue to monitor H&H and monitor closely. GI will be consulted. Further recommendations based on clinical course. Prognosis is guarded. Patient was counseled extensively for alcohol abuse. Time with Patient: Greater than 30
[2017-10-25] MEDS: SODIUM CHLORIDE 0.9% 1,000 ML IV SCH ×2 (06:18→15:32)
[2017-10-25 07:35] LABS: Glucose,Whole Blood 124 mg/dL (75-99)
[2017-10-25 09:18] LABS: Anisocytosis Moderate; Basophils % (A) 0 %; Eosinophils # (A) 0.1 k/uL (0-0.7); Eosinophils % (A) 2 %; HCT 25.3 % (39.0-53.0); HGB 7.8 gm/dL (13.0-17.5); Hypochromasia Slight; Lymphocytes # (A) 1.2 k/uL (1.0-4.8); Lymphocytes % (A) 25 %; MCH 27.2 pg (25.0-35.0); MCV 87.9 fL (80.0-100.0); Mean Platelet Volume 8.4; Microcytosis Slight; Monocytes # (A) 0.2 k/uL (0-1.0); Monocytes % (A) 5 %; Neutrophils # (A) 3.4 k/uL (1.3-7.7); Neutrophils % (A) 68 %; RBC 2.88 m/uL (4.30-5.90); RDW 20.8 % (11.5-15.5)
[2017-10-25 09:22] LABS: Platelet Count 97 k/uL (150-450)
[2017-10-25 09:41] LABS: Anion Gap 14 mmol/L; Blood Urea Nitrogen 7 mg/dL (9-20); Calcium 8.3 mg/dL (8.4-10.2); Carbon Dioxide 24 mmol/L (22-30); Chloride 103 mmol/L (98-107); Glucose 134 mg/dL (74-99); Magnesium 1.5 mg/dL (1.6-2.3); Phosphorus 1.8 mg/dL (2.5-4.5); Potassium 3.2 mmol/L (3.5-5.1); Sodium 141 mmol/L (137-145)
[2017-10-25] MEDS: PANTOPRAZOLE 40 MG TABLET PO SCH (10:18)
[2017-10-25] MEDS: NADOLOL 20 MG TAB PO SCH (10:18)
[2017-10-25] MEDS: metFORMIN 500 MG TAB PO SCH (10:18)
[2017-10-25] MEDS: MAGNESIUM SULFATE-D5W PMX 1 GM in DEXTROSE/WATER 1 100ML.BAG IVPB SCH ×2 (10:47→12:57)
[2017-10-25] MEDS: POTASSIUM CHLORIDE ER 20 MEQ TAB.ER PO SCH ×2 (10:47→11:17)
[2017-10-25] MEDS: THIAMINE 100 MG TAB PO SCH (11:17)
[2017-10-25] MEDS: FOLIC ACID 1 MG TAB PO SCH (11:17)
[2017-10-25] MEDS: MAGNESIUM OXIDE 400 MG TAB PO SCH (11:17)
[2017-10-25] MEDS: MULTIVITAMINS, THERA 1 EACH TAB PO SCH (11:17)
[2017-10-25 12:33] LABS: Glucose,Whole Blood 100 mg/dL (75-99)
[2017-10-25] MEDS: POTASSIUM PHOSPHATE 10 MMOL in SODIUM CHLORIDE 0.9% 250 ML IV SCH ×2 (13:37→15:44)
[2017-10-25 15:04] VITALS: BP 114/65; PULSE 89; RESP 16; TEMP 98.3
--- NOTE | 2017-10-25 21:39 | PN ---
PROGRESS NOTE DATE OF SERVICE: 10/25/2017. HISTORY: The patient is a 62-year-old male admitted to the hospital for acute esophageal variceal bleeding, for which he underwent upper endoscopy with variceal ligation 3 days ago. He is doing well. No further bleeding. He has no abdominal pain. No hematemesis. PHYSICAL EXAMINATION: Appears comfortable, no apparent distress. Vital signs stable. Blood pressure 130/86, pulse rate 89, and afebrile. HEENT examination unremarkable. Sclerae anicteric. Oral cavity no lesions. Chest clear. JVD not markedly elevated. Abdomen soft. Bowel sounds positive. No splenomegaly. Extremities, no pedal edema. Skin no rashes. Neuro, alert and oriented x3. No focal deficits. LABS: From today WBC 5, hemoglobin 7.8, platelets 97,000. Basic metabolic panel is within normal limits. IMPRESSION: 1. Acute esophageal variceal bleeding, status post EGD with variceal ligation 4 days ago, remains stable. Hemoglobin 7.8 g/dL. 2. Alcoholic cirrhosis of the liver with portal hypertension. RECOMMENDATIONS: 1. Advance diet as tolerated. 2. Start Inderal 10 mg 3 times daily. 3. The patient can be discharged home today with an outpatient followup in 2 to 3 weeks. We will plan repeat upper endoscopy with variceal ligation in 3 to 4 weeks. MMODL / RENAEN: [id number] /
--- NOTE | 2017-10-25 23:35 | P.DS ---
Providers Date of admission: 10/22/17 08:40 Expected date of discharge: 10/25/17 Attending physician: Danie Alvarez Consults: 10/21/17 22:49 Consult Physician Routine Consulting Provider: Barry Marcus Consult Reason/Comments: intensive managment Do you want consulting provider notified?: Already Contacted 10/21/17 22:52 Consult Physician Routine Consulting Provider: Gabbi Sheehan Consult Reason/Comments: Vomiting and stooling blood Do you want consulting provider notified?: Yes Primary care physician: Stated None Hospital Course: Discharge diagnosis Acute blood loss anemia due to GI bleed hemoglobin 11.0-9.7-8.3. Status post EGD and ligation of varices. Hematemesis and maroon-colored stools Symptomatic anemia with dizziness and lightheadedness Acute alcohol intoxication on admission Recent GI bleed in July 2017 status post EGD showed mild distal esophageal Varices Alcohol abuse Mild thrombocytopenia COPD History of CVA/TIA Diabetes type 2 GERD Hyperlipidemia Hypertension Cervical degenerative disc disease Anxiety/depression Scoliosis DVT prophylaxis with SCDs Hospital course Patient is a 62-year-old male with a known history of alcohol abuse, COPD, CVA/ TIA, diabetes type 2, GERD and history of previous GI bleed, pulmonary embolism and esophageal varices/diverticulosis and multiple other medical problems came to ER with complaints of feeling dizziness and lightheadedness. Patient says that he woke up feeling very dizzy. Patient was alcohol intoxicated on admission. Patient is also complaining of dark-colored stools/maroon colored stools. FOBT is positive. Patient was previously admitted to hospital with low hemoglobin and rectal bleeding this year. Patient had EGD done on 2017 showed mild distal esophageal varices. No active bleeding was noted at the time. Otherwise denied any chest pain or shortness of breath. No leg swelling. No nausea vomiting or abdominal pain. No diarrhea. No dysuria or hematuria. Patient was initially admitted to telemetry unit. Patient did have 2-3 episodes of hematemesis with bright red blood and was transferred to intensive care unit for further management. Repeat hemoglobin found to be 9.7 Patient was presented with hemoglobin 5.4 in July 2017 EKG sinus tachycardia Serum alcohol 264 Hemoglobin 11.0 on admission dropped down to 9.7 10/22/2017 Patient denied any further hematemesis. Patient underwent EGD today IMPRESSION: 1. Large distal esophageal varices with no active bleeding but stigmata of recent bleed status post variceal ligation as described above. 2. Large clots in the stomach. Hemoglobin is at 8.3 and 8.0. No fever no chills. No chest pain or short of breath. Tolerating oral diet. Patient is being transferred to the medical floor today . Patient is being continued on Protonix. 10/23/2017 Patient denied any complaints of chest pain or shortness of breath. No nausea vomiting abdominal pain. Hemoglobin is stable at 8.0. No hematemesis. Did have some dark-colored stools last night. 10/24/2017 Patient says that he is feeling much better today. Hemoglobin improved to 7.1. Patient was started on solid diet. Clinically overall much improved. GI is following. Anticipate discharge next 24 hours. 10/25/2017 Patient's hemoglobin is 7.8 today. No complaints of hematemesis or melena. Symptomatically much improved. Patient will be continued on Protonix twice a day and recommended to follow up in the GI clinic. Otherwise patient is stable to be discharged home. Plan Patient was continued on IV fluids and Protonix IV. Patient was transferred to MICU. Continued to monitor H&H and monitor closely. GI has seen the patient in status post EGD and ligation of basis. Hemoglobin is stable currently. Patient will be conveyed on Protonix twice a day. Prognosis is guarded. Patient was counseled extensively for alcohol abuse. PHYSICAL EXAMINATION: Patient is lying in the bed comfortably, no acute distress, awake alert and oriented.. HEENT: Normocephalic. Neck is supple. Pupils reactive. Nostrils clear. Oral cavity is moist. Ears reveal no drainage. Neck reveals no JVD, carotid bruits, or thyromegaly. CHEST EXAMINATION: Trachea is central. Symmetrical expansion. Lung guadalupe clear to auscultation and percussion. CARDIAC: Normal S1, S2 with no gallops. No murmurs ABDOMEN: Soft. Bowel sounds normal. No organomegaly. No abdominal bruits. Extremities: reveal no edema. No clubbing or cyanosis Neurologically awake, alert, oriented x3 with well-coordinated movements. No focal deficits noted Skin: No rash or skin lesions. Psychiatric: Coperative. Nonsuicidal Musculoskeletal: No joint swelling or deformity. Normal range of motion. Vital Signs - 24 hr 10/25/17 10/25/17 06:00 14:47 Temperature 98.1 F 98.3 F Pulse Rate [ 89 Cuff Matcher ] Pulse Rate [ 85 Pulse Oximetery ] Respiratory 20 16 Rate Blood Pressure 169/75 114/65 [Right Arm] O2 Sat by Pulse 100 95 Oximetry Total time taken greater than 35 minutes including 18 minutes for counseling and coordination of care. Patient Condition at Discharge: Stable Plan - Discharge Summary Discharge Rx Participant: Yes New Discharge Prescriptions: New Pantoprazole [Protonix] 40 mg PO AC-BID #60 tablet.dr Continue Docusate [Colace] 100 mg PO DAILY PRN #20 capsule PRN Reason: Constipation Ferrous Sulfate [Feosol] 325 mg PO DAILY #30 tab metFORMIN HCL 1,000 mg PO BID Nadolol [Corgard] 20 mg PO DAILY #30 tab Magnesium Oxide 400 mg PO DAILY #30 tablet Aspirin 81 mg PO DAILY #30 chew Folic Acid 1 mg PO DAILY@1200 #30 tab Multivitamins, Thera [Multivitamin (formulary)] 1 each PO DAILY@1200 #30 tab Thiamine [Vitamin B-1] 100 mg PO DAILY@1200 #30 tab Atorvastatin Calcium [Lipitor] 10 mg PO HS #30 tab Discontinued Pantoprazole [Protonix] 40 mg PO DAILY Discharge Medication List Docusate [Colace] 100 mg PO DAILY PRN #20 capsule 08/27/17 [Rx] Ferrous Sulfate [Feosol] 325 mg PO DAILY #30 tab 08/27/17 [Rx] metFORMIN HCL 1,000 mg PO BID 09/23/17 [History] Magnesium Oxide 400 mg PO DAILY #30 tablet 09/24/17 [Rx] Nadolol [Corgard] 20 mg PO DAILY #30 tab 09/24/17 [Rx] Aspirin 81 mg PO DAILY #30 chew 10/10/17 [Rx] Atorvastatin Calcium [Lipitor] 10 mg PO HS #30 tab 10/10/17 [Rx] Folic Acid 1 mg PO DAILY@1200 #30 tab 10/10/17 [Rx] Multivitamins, Thera [Multivitamin (formulary)] 1 each PO DAILY@1200 #30 tab [Rx] Thiamine [Vitamin B-1] 100 mg PO DAILY@1200 #30 tab 10/10/17 [Rx] Pantoprazole [Protonix] 40 mg PO AC-BID #60 tablet. 10/25/17 [Rx] Follow up Appointment(s)/Referral(s): None,Stated [Primary Care Provider] - 1-2 days (pleae call PCP to schedule appointment) Kamila Srinivasan PAC [REFERRING] - 12/14/17 11:00 am (with Kamila Srinivasan NP in [place] office) [facility] Visiting Nurse, [NON-STAFF] - Patient Instructions/Handouts: Abuse of Alcohol (GEN), Esophageal Varices (GEN) Discharge Disposition: HOME WITH HOME HEALTH SERVICES
== END 2017-10-25 17:20 | disposition home health service (06) | DRG 441 ==
LOC: EC 15:02 → 5MS5E 16:55 → 6ICU 21:59 → OBSVTOIN 10-22 08:40 → 4MS4W 10-23 10:18
PROVIDERS: ADMIT Internal Medicine; ATTEND Internal Medicine
PROC: 06L38CZ Occlusion of Esophageal Vein with Extraluminal Device, Via Natural or Artificial Opening Endoscopic (ICD-10-PCS; principal; 2017-10-22 08:35)
DX: K76.6 Portal hypertension (principal); I85.11 Secondary esophageal varices with bleeding; D62 Acute posthemorrhagic anemia; K31.89 Other diseases of stomach and duodenum; F10.129 Alcohol abuse with intoxication, unspecified; D69.6 Thrombocytopenia, unspecified; E11.9 Type 2 diabetes mellitus without complications; E78.5 Hyperlipidemia, unspecified; E87.6 Hypokalemia; F32.9 Major depressive disorder, single episode, unspecified; F41.9 Anxiety disorder, unspecified; I10 Essential (primary) hypertension; I48.0 Paroxysmal atrial fibrillation; J44.9 Chronic obstructive pulmonary disease, unspecified; K21.9 Gastro-esophageal reflux disease without esophagitis; K57.30 Diverticulosis of large intestine without perforation or abscess without bleeding; K70.30 Alcoholic cirrhosis of liver without ascites; M41.9 Scoliosis, unspecified; M50.30 Other cervical disc degeneration, unspecified cervical region; M51.36 Other intervertebral disc degeneration, lumbar region; Z86.73 Personal history of transient ischemic attack (TIA), and cerebral infarction without residual deficits; Z86.711 Personal history of pulmonary embolism; Z90.49 Acquired absence of other specified parts of digestive tract; Z79.82 Long term (current) use of aspirin; Z79.899 Other long term (current) drug therapy; Z79.84 Long term (current) use of oral hypoglycemic drugs; Z91.012 Allergy to eggs; Z88.8 Allergy status to other drugs, medicaments and biological substances; Z91.018 Allergy to other foods; Z91.048 Other nonmedicinal substance allergy status; Z82.3 Family history of stroke; Z82.5 Family history of asthma and other chronic lower respiratory diseases
CPT/HCPCS: 36415; 43244; 71045; 80048; 80053; 80320; 82272; 82550; 82553; 83690; 83735; 84100; 84132; 84484; 85025; 85610; 85730; 86850; 86900; 86901; 93005; 96361; 96374; 99285

== ENCOUNTER 2017-11-09 09:25 | Observation (INO) | payer OTHER ==
[2017-11-09] MEDS ORDERED: MECLIZINE 12.5 MG TAB PO STA (09:45)
[2017-11-09] MEDS ORDERED: SODIUM CHLORIDE 0.9% 500 ML IV STA (09:45)
[2017-11-09] MEDS ORDERED: SODIUM CHLORIDE 0.9% 1,000 ML IV ONE (09:47)
[2017-11-09] MEDS ORDERED: NADOLOL 20 MG TAB PO STA (09:49)
[2017-11-09] MEDS: SODIUM CHLORIDE 0.9% 1,000 ML IV STA ×2 (09:52→16:24)
[2017-11-09 09:59] LABS: Anisocytosis Slight; Basophils % (A) 1 %; Eosinophils # (A) 0.1 k/uL (0-0.7); Eosinophils % (A) 1 %; HCT 28.8 % (39.0-53.0); HGB 8.7 gm/dL (13.0-17.5); Hypochromasia Marked; Lymphocytes # (A) 1.1 k/uL (1.0-4.8); Lymphocytes % (A) 24 %; MCH 26.3 pg (25.0-35.0); MCHC 30.3 g/dL (31.0-37.0); MCV 86.8 fL (80.0-100.0); Mean Platelet Volume 7.9; Microcytosis Slight; Monocytes # (A) 0.4 k/uL (0-1.0); Monocytes % (A) 8 %; Neutrophils % (A) 65 %; RBC 3.31 m/uL (4.30-5.90); RDW 19.9 % (11.5-15.5); WBC 4.7 k/uL (3.8-10.6)
[2017-11-09 10:03] LABS: Platelet Count 209 k/uL (150-450)
[2017-11-09 10:06] LABS: ALT 55 U/L (21-72); AST 83 U/L (17-59); Albumin 3.5 g/dL (3.5-5.0); Alkaline Phosphatase 101 U/L (38-126); Anion Gap 12 mmol/L; Blood Urea Nitrogen 9 mg/dL (9-20); Calcium 8.2 mg/dL (8.4-10.2); Carbon Dioxide 24 mmol/L (22-30); Chloride 106 mmol/L (98-107); Glucose 137 mg/dL (74-99); Potassium 3.8 mmol/L (3.5-5.1); Sodium 142 mmol/L (137-145); Total Bilirubin 0.5 mg/dL (0.2-1.3)
--- NOTE | 2017-11-09 10:28 | XR ---
EXAMINATION TYPE: XR chest 2V DATE OF EXAM: 11/09/2017 COMPARISON: 10/24/2017 HISTORY: Shortness of breath TECHNIQUE: Frontal and lateral views of the chest are obtained. FINDINGS: Scattered senescent parenchymal changes noted. Hyperinflation compatible with COPD. Left lower lobe patchy density noted. Correlate for underlying pneumonia. Follow-up until resolution recommended. Heart size is stable. Mediastinal structures are stable and grossly unremarkable. No evidence for hilar prominence. Degenerative changes dorsal spine. IMPRESSION: 1. Left lower lobe patchy density noted. Correlate for underlying pneumonia. Follow-up until resoluti on recommended.
[2017-11-09] MEDS ORDERED: AZITHROMYCIN 500 MG TAB PO STA (11:33)
[2017-11-09] MEDS ORDERED: cefTRIAXone 2,000 MG in SODIUM CHLORIDE 0.9% 100 ML IVPB STA (11:33)
[2017-11-09] MEDS ORDERED: cefTRIAXone IN SWFI 2,000 MG/20 ML SYRINGE IVP STA (11:34)
--- NOTE | 2017-11-09 12:32 | ED ---
Dizziness HPI - General Chief Complaint: Dizziness Stated Complaint: DIZZINESS, HEADACHE Time Seen by Provider: 11/09/17 09:33 Source: EMS Mode of arrival: EMS Limitations: no limitations - History of Present Illness Initial Comments: 62 years old male comes in with the chest pain dizziness palpitation shortness of breath starting 6:30 AM today on arrival his heart rate was 121 and blood pressure was 171/93 he has a history of a call dependence, he he said he has quit drinking for 2 weeks now he had no alcohol for 2 weeks at all. He said deep breaths do not make the chest pain worse no abdominal pain no frequency urgency dysuria no symptoms of TIA or CVA - Related Data Home Medications Medication Instructions Recorded Confirmed metFORMIN HCL 1,000 mg PO BID 09/23/17 11/09/17 Folic Acid 1 mg PO DAILY 11/09/17 11/09/17 Multivitamins, Thera [Multivitamin 1 tab PO DAILY 11/09/17 11/09/17 (formulary)] Thiamine [Vitamin B-1] 100 mg PO DAILY 11/09/17 11/09/17 Previous Rx's Medication Instructions Recorded Docusate [Colace] 100 mg PO DAILY PRN #20 capsule 08/27/17 Ferrous Sulfate [Feosol] 325 mg PO DAILY #30 tab 08/27/17 Magnesium Oxide 400 mg PO DAILY #30 tablet 09/24/17 Nadolol [Corgard] 20 mg PO DAILY #30 tab 09/24/17 Aspirin 81 mg PO DAILY #30 chew 10/10/17 Atorvastatin Calcium [Lipitor] 10 mg PO HS #30 tab 10/10/17 Pantoprazole [Protonix] 40 mg PO AC-BID #60 tablet. 10/25/17 Allergies Allergy/AdvReac Type Severity Reaction Status Date / Time adhesive tape Allergy Rash/Hives Verified 11/09/17 09:53 egg AdvReac Nausea & Verified 11/09/17 09:53 Vomiting lisinopril AdvReac EYES Verified 11/09/17 09:53 BURN&ITCH/WEAKNESS tomato AdvReac Nausea & Verified 11/09/17 09:53 Vomiting & Diarrhea Review of Systems ROS Statement: Those systems with pertinent positive or pertinent negative responses have been documented in the HPI. ROS Other: All systems not noted in ROS Statement are negative. Past Medical History Past Medical History: Atrial Fibrillation, Chest Pain / Angina, COPD, CVA/TIA, Diabetes Mellitus, GERD/Reflux, GI Bleed, Hyperlipidemia, Hypertension, Pulmonary Embolus (PE) Additional Past Medical History / Comment(s): pt is rt side dominant.Upper and lower GI bleeds/anemia, esophageal varicies/diverticulosis, bilateral ankle edema at times, 2016 bacterial septicemia, TIA, NIDDM type II, 2012, cervical disc disease with neck pain goes into R arm, DDD low back goes into R leg, scoliosis, epilepsy when a child,tinnitus bl ears alcoholic last drank 10/06/17 History of Any Multi-Drug Resistant Organisms: None Reported Past Surgical History: Appendectomy, Cholecystectomy Additional Past Surgical History / Comment(s): 07/20/17 EGD, 03/21/17 EGD/ colonoscopy, other colonoscopies. Past Anesthesia/Blood Transfusion Reactions: Previous Problems w/ Anesthesia Additional Past Anesthesia/Blood Transfusion Reaction / Comment(s): after appendix removed sob Past Psychological History: Anxiety, Depression Smoking Status: Never smoker Past Alcohol Use History: Abuse, Heavy Past Drug Use History: None Reported - Past Family History Mother Family Medical History: COPD, CVA/TIA, Dementia Additional Family Medical History / Comment(s): from a stroke Father Family Medical History: Pneumonia Additional Family Medical History / Comment(s): Father of pneumonia when he was close to 80 yrs old. General Exam - General Exam Comments Initial Comments: General: The patient is awake and alert, in no distress, and does not appear acutely ill. Skin: Skin is warm and dry and no rashes or lesions are noted. Eye: Pupils are equal, round and reactive to light, extra-ocular movements are intact; there is normal conjunctiva bilaterally. Ears, nose, mouth and throat: There are moist mucous membranes and no oral lesions. Neck: The neck is supple, no signs of meningitis Cardiovascular: There is a regular rate and rhythm. No murmur, rub or gallop is appreciated. Respiratory: To auscultation bilateral, noticed crackles at the bases bilateral noticed a sinus tachycardia heart rate 05/17/2019 Gastrointestinal: Soft, non-distended, non-tender abdomen without masses or organomegaly noted. There is no rebound or guarding present. Bowel sounds are unremarkable. Back: There is no tenderness to palpation in the midline. There is no obvious deformity. Musculoskeletal: Normal ROM, no tenderness, There is no pedal edema. There is no calf tenderness or swelling. No cords were appreciated. Neurological: CN II-XII intact, Cranial nerves III through XII are intact. There are no obvious motor or sensory deficits. Coordination appears grossly intact. Speech is normal. Psychiatric: Cooperative, appropriate mood & affect, normal judgment. Limitations: no limitations Course Vital Signs 11/09/17 11/09/17 09:28 10:26 Temperature 98.2 F Pulse Rate 122 H 118 H Respiratory 18 18 Rate Blood Pressure 171/93 183/97 O2 Sat by Pulse 99 98 Oximetry Plan reassessment noticed his lactate is 2.6 CBC is unremarkable troponin is unremarkable chest x-ray positive for him infiltrate consistent with the pneumonia he was given Rocephin and Zithromax for the pneumonia considering his chest pain and his history of alcohol dependence and now patient being 62 I'm canal watch him for 3 sets of cardiac markers and cardiology be consulted though troponin is normal when she had a fluids his tachycardia resolved. He is agreeable to be admitted observation for 3 sets of cardiac markers and cardiology consult his headache has resolved EKG Findings - EKG Comments: EKG Findings:: EKG is sinus tach ventricular rate is 118 WV interval is 156 QRS duration is 78 QT/QTC 346/484 review of this EKG does not reveal any ST elevation or ST depression Medical Decision Making - Lab Data Result diagrams: 11/09/17 09:45 11/09/17 09:45 Lab Results 11/09/17 11/09/17 11/09/17 Range/Units 09:45 09:45 09:45 WBC 4.7 (3.8-10.6) k/uL RBC 3.31 L (4.30-5.90) m/uL Hgb 8.7 L (13.0-17.5) gm/dL Hct 28.8 L (39.0-53.0) % MCV 86.8 (80.0-100.0) fL MCH 26.3 (25.0-35.0) pg MCHC 30.3 L (31.0-37.0) g/dL RDW 19.9 H (11.5-15.5) % Plt Count 209 D (150-450) k/uL Neutrophils % 65 % Lymphocytes % 24 % Monocytes % 8 % Eosinophils % 1 % Basophils % 1 % Neutrophils # 3.0 (1.3-7.7) k/uL Lymphocytes # 1.1 (1.0-4.8) k/uL Monocytes # 0.4 (0-1.0) k/uL Eosinophils # 0.1 (0-0.7) k/uL Basophils # 0.0 (0-0.2) k/uL Hypochromasia Marked Anisocytosis Slight Microcytosis Slight Sodium 142 (137-145) mmol/L Potassium 3.8 (3.5-5.1) mmol/L Chloride 106 (98-107) mmol/L Carbon Dioxide 24 (22-30) mmol/L Anion Gap 12 mmol/L BUN 9 (9-20) mg/dL Creatinine 0.70 (0.66-1.25) mg/dL Est GFR (CKD-EPI)AfAm >90 (>60 ml/min/1.73 sqM) Est GFR (CKD-EPI)NonAf >90 (>60 ml/min/1.73 sqM) Glucose 137 H (74-99) mg/dL Plasma Lactic Acid Hitesh 2.6 H* (0.7-2.0) mmol/L Calcium 8.2 L (8.4-10.2) mg/dL Total Bilirubin 0.5 (0.2-1.3) mg/dL AST 83 H (17-59) U/L ALT 55 (21-72) U/L Alkaline Phosphatase 101 (38-126) U/L Troponin I (0.000-0.034) ng/mL Total Protein 7.0 (6.3-8.2) g/dL Albumin 3.5 (3.5-5.0) g/dL 11/09/17 Range/Units 09:45 WBC (3.8-10.6) k/uL RBC (4.30-5.90) m/uL Hgb (13.0-17.5) gm/dL Hct (39.0-53.0) % MCV (80.0-100.0) fL MCH (25.0-35.0) pg MCHC (31.0-37.0) g/dL RDW (11.5-15.5) % Plt Count (150-450) k/uL Neutrophils % % Lymphocytes % % Monocytes % % Eosinophils % % Basophils % % Neutrophils # (1.3-7.7) k/uL Lymphocytes # (1.0-4.8) k/uL Monocytes # (0-1.0) k/uL Eosinophils # (0-0.7) k/uL Basophils # (0-0.2) k/uL Hypochromasia Anisocytosis Microcytosis Sodium (137-145) mmol/L Potassium (3.5-5.1) mmol/L Chloride (98-107) mmol/L Carbon Dioxide (22-30) mmol/L Anion Gap mmol/L BUN (9-20) mg/dL Creatinine (0.66-1.25) mg/dL Est GFR (CKD-EPI)AfAm (>60 ml/min/1.73 sqM) Est GFR (CKD-EPI)NonAf (>60 ml/min/1.73 sqM) Glucose (74-99) mg/dL Plasma Lactic Acid Hitesh (0.7-2.0) mmol/L Calcium (8.4-10.2) mg/dL Total Bilirubin (0.2-1.3) mg/dL AST (17-59) U/L ALT (21-72) U/L Alkaline Phosphatase (38-126) U/L Troponin I <0.012 (0.000-0.034) ng/mL Total Protein (6.3-8.2) g/dL Albumin (3.5-5.0) g/dL Disposition Clinical Impression: Chest pain, Pneumonia, Tachycardia, Headache, Hypertension Disposition: ADMITTED IP TO THIS [facility] Condition: Good Referrals: Yoon Phillips DO [Primary Care Provider] - 1-2 days
[2017-11-09] MEDS ORDERED: MORPHINE SULFATE 2 MG/ML SYRINGE IVP PRN (12:41)
[2017-11-09] MEDS ORDERED: NITROGLYCERIN SL TABS 0.4 MG TAB SUBLINGUAL PRN (12:41)
[2017-11-09] MEDS ORDERED: DOCUSATE 100 MG CAP PO PRN (12:50)
[2017-11-09] MEDS ORDERED: LORazepam 2 MG/ML INJ IV PRN (13:52)
--- NOTE | 2017-11-09 14:33 | P.HPIM ---
History of Present Illness H&P Date: 11/09/17 Chief Complaint: Chest pain and shortness of breath This is a 62-year-old male, patient of [facility]. He has a known past medical history of atrial fibrillation, COPD, diabetes mellitus type 2, hyperlipidemia, hypertension, PE, esophageal varices with bleeding requiring EGD with ligation in 10/21/2017, and also history of TIA. Patient reports being taken off of anticoagulation for his atrial fibrillation about 6 years ago due to GI bleeding. Patient has a known history of alcohol dependency. He reports spent 2 weeks since his last ETOH beverage. He presents to the emergency room with complaints of left-sided chest pain that radiated into the left arm. He's also been having some dizziness and shortness of breath. Patient reports the chest pain started around 6:30 this morning. However he has been sick for the past couple a days with fever 100.6 cough and shortness of breath. The cough is nonproductive. Patient will be admitted to observation. He was seen and examined in the ER. Chest x-ray showing a left lower lobe patchy density. He was started on Rocephin and azithromycin in the emergency room. He is tachycardic with a heart rate of 122 on admission. First troponin was negative. EKG was ordered in the ER. Cardiology has been consulted. Hemoglobin on admission is 8.7 he denies any active bleeding. But he has been taking iron supplements at home for his anemia and recent GI bleed. Lactic acid elevated at 2.6 is receiving fluid boluses in the ER. Patient reports a negative stress test 1 year ago. He's also been having some nausea and queasy stomach. Denies any diarrhea. Denies any burning with urination. Review of Systems Please refer to HPI otherwise unremarkable Past Medical History Past Medical History: Atrial Fibrillation, Chest Pain / Angina, COPD, CVA/TIA, Diabetes Mellitus, GERD/Reflux, GI Bleed, Hyperlipidemia, Hypertension, Pulmonary Embolus (PE) Additional Past Medical History / Comment(s): pt is rt side dominant.Upper and lower GI bleeds/anemia, esophageal varicies/diverticulosis, bilateral ankle edema at times, 2016 bacterial septicemia, TIA, NIDDM type II, 2012, cervical disc disease with neck pain goes into R arm, DDD low back goes into R leg, scoliosis, epilepsy when a child,tinnitus bl ears alcoholic last drank 10/06/17 History of Any Multi-Drug Resistant Organisms: None Reported Past Surgical History: Appendectomy, Cholecystectomy Additional Past Surgical History / Comment(s): 07/20/17 EGD, 03/21/17 EGD/ colonoscopy, other colonoscopies. Past Anesthesia/Blood Transfusion Reactions: Previous Problems w/ Anesthesia Additional Past Anesthesia/Blood Transfusion Reaction / Comment(s): after appendix removed sob Past Psychological History: Anxiety, Depression Smoking Status: Never smoker Past Alcohol Use History: Abuse, Heavy Past Drug Use History: None Reported - Past Family History Mother Family Medical History: COPD, CVA/TIA, Dementia Additional Family Medical History / Comment(s): from a stroke Father Family Medical History: Pneumonia Additional Family Medical History / Comment(s): Father of pneumonia when he was close to 80 yrs old. Medications and Allergies Home Medications Medication Instructions Recorded Confirmed Type Docusate [Colace] 100 mg PO DAILY PRN #20 capsule 08/27/17 11/09/17 Rx Ferrous Sulfate [Feosol] 325 mg PO DAILY #30 tab 08/27/17 11/09/17 Rx metFORMIN HCL 1,000 mg PO BID 09/23/17 11/09/17 History Magnesium Oxide 400 mg PO DAILY #30 tablet 09/24/17 11/09/17 Rx Nadolol [Corgard] 20 mg PO DAILY #30 tab 09/24/17 11/09/17 Rx Aspirin 81 mg PO DAILY #30 chew 10/10/17 11/09/17 Rx Atorvastatin Calcium [Lipitor] 10 mg PO HS #30 tab 10/10/17 11/09/17 Rx Pantoprazole [Protonix] 40 mg PO AC-BID #60 tablet. 10/25/17 11/09/17 Rx Folic Acid 1 mg PO DAILY 11/09/17 11/09/17 History Multivitamins, Thera [Multivitamin 1 tab PO DAILY 11/09/17 11/09/17 History (formulary)] Thiamine [Vitamin B-1] 100 mg PO DAILY 11/09/17 11/09/17 History Allergies Allergy/AdvReac Type Severity Reaction Status Date / Time adhesive tape Allergy Rash/Hives Verified 11/09/17 09:53 egg AdvReac Nausea & Verified 11/09/17 09:53 Vomiting lisinopril AdvReac EYES Verified 11/09/17 09:53 BURN&ITCH/WEAKNESS tomato AdvReac Nausea & Verified 11/09/17 09:53 Vomiting & Diarrhea Physical Exam Vitals: Vital Signs Temp Pulse Resp BP Pulse Ox 11/09/17 12:58 83 18 162/93 96 11/09/17 12:29 88 16 170/96 98 11/09/17 10:26 118 H 18 183/97 98 11/09/17 09:28 98.2 F 122 H 18 171/93 99 Intake and Output 11/08/17 11/09/17 11/09/17 22:59 06:59 14:59 Other: Weight 78.925 kg Head normocephalic Neck supple Lungs rhonchi left lower lobe Heart regular rate and rhythm S1-S2, no rub or gallop Abdomen is soft nontender nondistended positive bowel sounds no hepatosplenomegaly Extremities no edema Neuro alert and orientated to 3 Results CBC & Chem 7: 11/09/17 09:45 11/09/17 09:45 Labs: Abnormal Lab Results - Last 24 Hours (Table) 11/09/17 11/09/17 11/09/17 Range/Units 09:45 09:45 09:45 RBC 3.31 L (4.30-5.90) m/uL Hgb 8.7 L (13.0-17.5) gm/dL Hct 28.8 L (39.0-53.0) % MCHC 30.3 L (31.0-37.0) g/dL RDW 19.9 H (11.5-15.5) % Glucose 137 H (74-99) mg/dL Plasma Lactic Acid Hitesh 2.6 H* (0.7-2.0) mmol/L Calcium 8.2 L (8.4-10.2) mg/dL AST 83 H (17-59) U/L Assessment and Plan Assessment: 1. Chest pain with shortness of breath and tachycardia: First troponin negative. EKG ordered an ER. Cardiology has been consulted. Continue monitoring cardiac enzymes and serial EKGs. Symptoms could be related to patient's pneumonia. However he does have a history of PE. We'll check a d- dimer 2. Pneumonia with chest x-ray showing a left lower lobe patchy density. Patient started on Rocephin and azithromycin. Blood culture pending 3. History of alcohol dependency: Patient reports it's been 2 weeks since his last alcoholic beverage. Continue with his thiamine, multivitamin and folic acid. Will add Ativan 1 mg IV every 4 hours as needed for any anxiety or agitation 4. Elevated lactic acid level likely related patient's pneumonia. Patient receiving IV fluids. Repeat lactic acid ordered an ER 5. History of paroxysmal atrial fibrillation per patient. Not on anticoagulation due to GI bleed 6. History of pulmonary embolism 7. Diabetes mellitus type 2: Continue metformin and sliding scale coverage 8. Hyperlipidemia continue statin 9. History of esophageal varices requiring EGD with ligation 10/21/2017 10. Iron deficiency anemia: Continue iron supplement. Continue to monitor hemoglobin. No active bleeding. Hemoglobin 8.7 11. History of TIA 12. History of essential hypertension 13. History of COPD stable no evidence of exacerbation Cesar prophylaxis Protonix and DVT prophylaxis SCDs. Patient not a candidate for anticoagulation at this point due to history of GI bleed earlier in October Time with Patient: Greater than 30 (Greater than 60% of the total time spent in counseling and coordination of care.I performed an examination of the patient and discussed their management with the physician Director [employer] Services. I have reviewed the Physician Director [employer]'s notes and agree with the documented findings and plan of care)
[2017-11-09 15:24] LABS: Creatine Kinase 92 U/L (55-170)
[2017-11-09 15:36] LABS: Creatine Kinase MB 0.6 ng/mL (0.0-2.4); Troponin I <0.012 ng/mL (0.000-0.034)
--- NOTE | 2017-11-09 16:30 | CT ---
EXAMINATION TYPE: CT chest angio for PE DATE OF EXAM: 11/09/2017 COMPARISON: CTA chest September 22, 2017 HISTORY: Mid chest pain radiating down left arm. CT DLP: 579 mGycm. Automated Exposure Control for Dose Reduction was Utilized. CONTRAST: CTA scan of the thorax is performed with IV Contrast, patient injected with 100 mL of Isovue 370, pul monary embolism protocol. MIP Images are created on CT scanner and reviewed. FINDINGS: LUNGS: There is persistent reticulation and fibrosis in the left lung involving upper and lower lungs slightly more prominent inferiorly. Persistent left-sided volume loss with mediastinal shift remains present. No new nodule or mass is present. There is no pleural effusion or pneumothorax seen. The tracheobronchial tree is patent. MEDIASTINUM: Similar prior exam there is suboptimal bolus with near equal contrast the right and left heart systems and pooling of most dense contrast in SVC. There is overall poor opacification of cent ral and peripheral pulmonary arteries, exam is essentially nondiagnostic for evaluation for pulmonary embolism There are no greater than 1 cm hilar or mediastinal lymph nodes. No significant pericardi al effusion is seen. Heart size is stable and upper limits of normal. OTHER: Visualized liver is prominent with lobulated peripheral nodular contour, underlying cirrhosis is redemonstrated which correlates with CT abdomen August 24, 2017. Gallbladder is surgically absent. Recanalized umbilical vein is felt present. Some diverticula are seen in the visualized colon. There is moderate to severe multilevel spurring in the thoracic spine. IMPRESSION: 1. Nondiagnostic for pulmonary embolism similar to prior. 2. Chronic left-sided volume loss and parenchymal scarring, no new suspicious acute pulmonary process . 3. Hepatomegaly and cirrhosis redemonstrated.
[2017-11-09 17:23] LABS: Glucose,Whole Blood 116 mg/dL (75-99)
--- NOTE | 2017-11-09 17:53 | P.CNPUL ---
History of Present Illness Consult date: 11/09/17 Requesting physician: Charlette Finney Reason for consult: pneumonia Chief complaint: Chest pain and shortness of breath and dizziness History of present illness: This is a 62-year-old white male with history of atrial fibrillation, pulmonary embolism, hypertension, CVA, type 2 diabetes, esophageal varices and alcohol related liver disease, cervical disc disease, patient was last seen on consultation on 10/22/2017, and at that time he had lightheadedness dizziness and the drug colored bowel movements. Patient was found to have upper GI bleeding secondary to esophageal varices, underwent ligation of esophageal varices by gastroenterology. Patient was readmitted this time with multiple complaints including left-sided chest pain, with radiation to the left arm, some dizziness and shortness of breath as well as dry hacking cough. His visiting nurse told him that he is running a fever with a temp of 100.6, she suggested coming to the ER. In the ER, his chest x-ray was suggestive of a limited left lower lobe infiltrate, CT of the chest was done, showed evidence of persistent reticulation and fibrosis in the left lung involving upper and lower lung guadalupe. Patient was admitted, placed on antibiotics, and I was asked to see him on consultation. Presently during my evaluation, patient denies any headaches, he feels a slightly lightheaded, no vertigo, no nausea no vomiting no abdominal pain no chest pain, he has intermittent dry cough, denies any fever or chills at present, no nausea no vomiting no abdominal pain no melena no hematemesis is no dysuria and no frequency no urgency. Review of Systems 14 point review of systems were obtained, please refer to patient and positives in HPI otherwise remaining systems are negative Past Medical History Past Medical History: Atrial Fibrillation, Chest Pain / Angina, COPD, CVA/TIA, Diabetes Mellitus, GERD/Reflux, GI Bleed, Hyperlipidemia, Hypertension, Pulmonary Embolus (PE) Additional Past Medical History / Comment(s): pt is rt side dominant.Upper and lower GI bleeds/anemia, esophageal varicies/diverticulosis, bilateral ankle edema at times, 2016 bacterial septicemia, TIA, NIDDM type II, 2011, cervical disc disease with neck pain goes into R arm, DDD low back goes into R leg, scoliosis, epilepsy when a child,tinnitus bl ears alcoholic last drank 10/06/17 History of Any Multi-Drug Resistant Organisms: None Reported Past Surgical History: Appendectomy, Cholecystectomy Additional Past Surgical History / Comment(s): 07/20/17 EGD, 03/21/17 EGD/ colonoscopy, other colonoscopies. Past Anesthesia/Blood Transfusion Reactions: Previous Problems w/ Anesthesia Additional Past Anesthesia/Blood Transfusion Reaction / Comment(s): after appendix removed sob Smoking Status: Never smoker - Past Family History Mother Family Medical History: COPD, CVA/TIA, Dementia Additional Family Medical History / Comment(s): from a stroke Father Family Medical History: Pneumonia Additional Family Medical History / Comment(s): Father of pneumonia when he was close to 80 yrs old. Medications and Allergies Home Medications Medication Instructions Recorded Confirmed Type Docusate [Colace] 100 mg PO DAILY PRN #20 capsule 08/27/17 11/09/17 Rx Ferrous Sulfate [Feosol] 325 mg PO DAILY #30 tab 08/27/17 11/09/17 Rx metFORMIN HCL 1,000 mg PO BID 09/23/17 11/09/17 History Magnesium Oxide 400 mg PO DAILY #30 tablet 09/24/17 11/09/17 Rx Nadolol [Corgard] 20 mg PO DAILY #30 tab 09/24/17 11/09/17 Rx Aspirin 81 mg PO DAILY #30 chew 10/10/17 11/09/17 Rx Atorvastatin Calcium [Lipitor] 10 mg PO HS #30 tab 10/10/17 11/09/17 Rx Pantoprazole [Protonix] 40 mg PO AC-BID #60 tablet. 10/25/17 11/09/17 Rx Folic Acid 1 mg PO DAILY 11/09/17 11/09/17 History Multivitamins, Thera [Multivitamin 1 tab PO DAILY 11/09/17 11/09/17 History (formulary)] Thiamine [Vitamin B-1] 100 mg PO DAILY 11/09/17 11/09/17 History Allergies Allergy/AdvReac Type Severity Reaction Status Date / Time adhesive tape Allergy Rash/Hives Verified 11/09/17 09:53 egg AdvReac Nausea & Verified 11/09/17 09:53 Vomiting lisinopril AdvReac EYES Verified 11/09/17 09:53 BURN&ITCH/WEAKNESS tomato AdvReac Nausea & Verified 11/09/17 09:53 Vomiting & Diarrhea Physical Exam Vitals: Vital Signs Temp Pulse Resp BP Pulse Ox 11/09/17 16:25 18 11/09/17 15:14 97.9 F 75 18 165/88 98 11/09/17 12:58 83 18 162/93 96 11/09/17 12:29 88 16 170/96 98 11/09/17 10:26 118 H 18 183/97 98 11/09/17 09:28 98.2 F 122 H 18 171/93 99 Intake and Output 11/09/17 11/09/17 11/09/17 06:59 14:59 22:59 Other: Voiding Method Toilet Weight 78.925 kg Physical Exam: Revealed a 62-year-old white male, in no distress. On room air. Head: Atraumatic, normocephalic. HEENT:[Neck is supple.] [No neck masses.] [No thyromegaly.] [No JVD.] PERRLA, EOMI, no icterus. Nasogastric tube is noted, black coffee ground gastric fluid is noted. Chest: [Minimal crackles at the left base, no rhonchi no wheezes. No chest wall tenderness. Cardiac Exam: [Normal S1 and S2, no S3 gallop, no murmur.] Abdomen: [Soft, nontender, no megaly, no rebound, no guarding, normal bowel sounds.] Extremities: [No clubbing, no edema, no cyanosis.] Neurological Exam: [No focal neurologic deficit.] Psychiatric: Normal mood affect and mental status examination. Lymphatics: No lymphadenopathy. Results - Laboratory Findings CBC and BMP: 11/09/17 09:45 11/09/17 09:45 PT/INR, D-dimer D-Dimer 1.00 mg/L FEU (<0.60) H 11/09/17 14:48 Abnormal lab findings: Abnormal Labs 11/09/17 11/09/17 11/09/17 09:45 09:45 09:45 RBC 3.31 L Hgb 8.7 L Hct 28.8 L MCHC 30.3 L RDW 19.9 H D-Dimer Glucose 137 H POC Glucose (mg/dL) Plasma Lactic Acid Hitesh 2.6 H* Calcium 8.2 L AST 83 H 11/09/17 11/09/17 14:48 17:18 RBC Hgb Hct MCHC RDW D-Dimer 1.00 H Glucose POC Glucose (mg/dL) 116 H Plasma Lactic Acid Hitesh Calcium AST - Diagnostic Findings Chest x-ray: image reviewed (CT of the chest and chest x-ray were both reviewed. Agree with reading as per radiology.) CT scan - chest: image reviewed (As noted by radiology.) Assessment and Plan Assessment: Impression: 1 suspect left lower lobe pneumonia, agree with Rocephin and Zithromax. 2 chest pain with negative troponins, cardiology is evaluating. Cardiac enzymes are being monitored. 3 alcohol dependency and alcohol related liver disease 4 diabetes type V esophageal varices requiring recent ligation on 10/21/2017 6 I haven't deficiency anemia 7 underlying COPD presently inactive. Recommendation: I fully agree with the present treatment plan, chest x-ray, CT of the chest, his most recent admission were all reviewed, patient could be possibly switch to oral antibiotics, and consider discharge planning in the next 24-48 hours, suggest outpatient follow-up within a week post discharge. Time with Patient: Greater than 30
[2017-11-09] MEDS: INSULIN ASPART 100 UNIT/ML 1 ML 10 ML VIAL SQ SCH ×2 (17:56→21:05)
[2017-11-09] MEDS: PANTOPRAZOLE 40 MG TABLET PO SCH (18:00)
[2017-11-09] MEDS: metFORMIN 500 MG TAB PO SCH (20:58)
[2017-11-09] MEDS: ATORVASTATIN 10 MG TAB PO SCH (20:58)
[2017-11-09 21:01] LABS: Glucose,Whole Blood 120 mg/dL (75-99)
[2017-11-09 21:03] LABS: Hemoglobin A1C 5.4 % (4.0-6.0)
[2017-11-09 22:48] LABS: Creatine Kinase 97 U/L (55-170)
[2017-11-09 23:01] LABS: Creatine Kinase MB 0.6 ng/mL (0.0-2.4); Troponin I <0.012 ng/mL (0.000-0.034)
[2017-11-10 06:59] LABS: Glucose,Whole Blood 124 mg/dL (75-99)
[2017-11-10 08:38] LABS: Anisocytosis Slight; Basophils % (A) 0 %; Eosinophils # (A) 0.2 k/uL (0-0.7); Eosinophils % (A) 4 %; HCT 28.5 % (39.0-53.0); HGB 8.8 gm/dL (13.0-17.5); Hypochromasia Marked; Lymphocytes # (A) 1.1 k/uL (1.0-4.8); Lymphocytes % (A) 26 %; MCH 26.9 pg (25.0-35.0); MCV 86.9 fL (80.0-100.0); Mean Platelet Volume 7.5; Microcytosis Slight; Monocytes # (A) 0.4 k/uL (0-1.0); Monocytes % (A) 8 %; Neutrophils # (A) 2.6 k/uL (1.3-7.7); Neutrophils % (A) 60 %; Platelet Count 182 k/uL (150-450); RBC 3.28 m/uL (4.30-5.90); RDW 19.5 % (11.5-15.5); WBC 4.4 k/uL (3.8-10.6)
[2017-11-10] MEDS ORDERED: AZITHROMYCIN 500 MG in SODIUM CHLORIDE 0.9% 250 ML IVPB SCH (09:00)
[2017-11-10] MEDS ORDERED: AZITHROMYCIN 500 MG in DEXTROSE 5% IN WATER 250 ML IVPB SCH ×2 (09:00)
[2017-11-10 09:06] LABS: ALT 47 U/L (21-72); AST 70 U/L (17-59); Albumin 3.4 g/dL (3.5-5.0); Alkaline Phosphatase 100 U/L (38-126); Anion Gap 10 mmol/L; Blood Urea Nitrogen 9 mg/dL (9-20); Carbon Dioxide 26 mmol/L (22-30); Chloride 104 mmol/L (98-107); Cholesterol 150 mg/dL (<200); Glucose 113 mg/dL (74-99); HDL Cholesterol 41 mg/dL (40-60); LDL Cholesterol,Calculated 87 mg/dL (0-99); Sodium 140 mmol/L (137-145); Total Bilirubin 0.5 mg/dL (0.2-1.3); Total Protein 6.8 g/dL (6.3-8.2); Triglycerides 111 mg/dL (<150)
[2017-11-10] MEDS ORDERED: AZITHROMYCIN 500 MG in SODIUM CHLORIDE 0.9% 250 ML IVPB ONE (11:30)
[2017-11-10] MEDS: NADOLOL 20 MG TAB PO SCH (11:41)
[2017-11-10] MEDS: THIAMINE 100 MG TAB PO SCH (11:42)
[2017-11-10] MEDS: INSULIN ASPART 100 UNIT/ML 1 ML 10 ML VIAL SQ SCH ×4 (11:59→20:09)
[2017-11-10] MEDS: PANTOPRAZOLE 40 MG TABLET PO SCH ×2 (11:59→18:37)
[2017-11-10] MEDS: ASPIRIN 325 MG TAB PO SCH (11:59)
[2017-11-10] MEDS: cefTRIAXone IN SWFI 1,000 MG/10 ML SYRINGE IVP SCH (11:59)
[2017-11-10] MEDS: FERROUS SULFATE 325 MG TAB PO SCH (12:00)
[2017-11-10] MEDS: MULTIVITAMINS, THERA 1 EACH TAB PO SCH (12:00)
[2017-11-10] MEDS: FOLIC ACID 1 MG TAB PO SCH (12:00)
[2017-11-10] MEDS: metFORMIN 500 MG TAB PO SCH ×2 (12:00→20:09)
[2017-11-10] MEDS: MAGNESIUM OXIDE 400 MG TAB PO SCH (12:00)
--- NOTE | 2017-11-10 12:18 | P.PN ---
Subjective Progress Note Date: 11/10/17 Principal diagnosis: Suspected left lower lobe pneumonia, community-acquired This is a 62-year-old white male with history of atrial fibrillation, pulmonary embolism, hypertension, CVA, type 2 diabetes, esophageal varices and alcohol related liver disease, cervical disc disease, patient was last seen on consultation on 10/22/2017, and at that time he had lightheadedness dizziness and the drug colored bowel movements. Patient was found to have upper GI bleeding secondary to esophageal varices, underwent ligation of esophageal varices by gastroenterology. Patient was readmitted this time with multiple complaints including left-sided chest pain, with radiation to the left arm, some dizziness and shortness of breath as well as dry hacking cough. His visiting nurse told him that he is running a fever with a temp of 100.6, she suggested coming to the ER. In the ER, his chest x-ray was suggestive of a limited left lower lobe infiltrate, CT of the chest was done, showed evidence of persistent reticulation and fibrosis in the left lung involving upper and lower lung guadalupe. Patient was admitted, placed on antibiotics, and I was asked to see him on consultation. Presently during my evaluation, patient denies any headaches, he feels a slightly lightheaded, no vertigo, no nausea no vomiting no abdominal pain no chest pain, he has intermittent dry cough, denies any fever or chills at present, no nausea no vomiting no abdominal pain no melena no hematemesis is no dysuria and no frequency no urgency. On 11/10/2017 patient seen in follow-up on observation unit, he is resting in bed, in no acute distress, lung sounds are diminished to auscultation, no rhonchi, no wheezes noted. Denies any fever or chills, he has been afebrile during this admission, room air pulse ox is 95%, vital signs are stable, respirations are even and nonlabored. No chest pain, no worsening chest congestion, no nausea. Today's blood work was reviewed, and showed WBC of 4.4, hemoglobin is stable at 8.8, no BMP. Patient remains on empiric antibiotics in the form of Zithromax and Rocephin. CT angios was nondiagnostic for pulmonary embolism and parenchymal scarring in the left upper and lower lobes, but no suspicious acute pulmonary process. Clinically patient remains stable, and coverage ambulation. He is awaiting to be evaluated by cardiology in regards to his chest discomfort and palpitations that were present on admission Objective - Vital Signs Vital signs: Vital Signs Temp 98.0 F 11/10/17 11:40 Pulse 88 11/10/17 11:40 Resp 18 11/10/17 11:40 BP 144/90 11/10/17 11:40 Pulse Ox 95 11/10/17 11:40 Intake & Output 11/09/17 11/10/17 11/10/17 18:59 06:59 18:59 Weight 78.925 kg Other: Voiding Method Toilet - Exam Physical Exam: Revealed a 62-year-old white male, in no distress. On room air. Head: Atraumatic, normocephalic. HEENT:[Neck is supple.] [No neck masses.] [No thyromegaly.] [No JVD.] PERRLA, EOMI, no icterus. Nasogastric tube is noted, black coffee ground gastric fluid is noted. Chest: [Diminished lung sounds bilaterally, few crackles at the left lower base , no rhonchi, no wheezes Cardiac Exam: [Normal S1 and S2, no S3 gallop, no murmur.] Abdomen: [Soft, nontender, no megaly, no rebound, no guarding, normal bowel sounds.] Extremities: [No clubbing, no edema, no cyanosis.] Neurological Exam: [No focal neurologic deficit.] Psychiatric: Normal mood affect and mental status examination. Lymphatics: No lymphadenopathy. - Labs CBC & Chem 7: 11/10/17 07:30 11/09/17 09:45 Labs: Abnormal Lab Results - Last 24 Hours (Table) 11/09/17 11/09/17 11/09/17 Range/Units 14:48 17:18 20:49 RBC (4.30-5.90) m/uL Hgb (13.0-17.5) gm/dL Hct (39.0-53.0) % RDW (11.5-15.5) % D-Dimer 1.00 H (<0.60) mg/L FEU POC Glucose (mg/dL) 116 H 120 H (75-99) mg/dL 11/10/17 11/10/17 Range/Units 06:57 07:30 RBC 3.28 L (4.30-5.90) m/uL Hgb 8.8 L (13.0-17.5) gm/dL Hct 28.5 L (39.0-53.0) % RDW 19.5 H (11.5-15.5) % D-Dimer (<0.60) mg/L FEU POC Glucose (mg/dL) 124 H (75-99) mg/dL Assessment and Plan Plan: Assessment: 1 suspect left lower lobe pneumonia, agree with Rocephin and Zithromax. 2 chest pain with negative troponins, cardiology is evaluating. Cardiac enzymes are being monitored. 3 alcohol dependency and alcohol related liver disease 4 diabetes type V esophageal varices requiring recent ligation on 10/21/2017 6 Iron deficiency anemia 7 underlying COPD presently inactive. Recommendation: Patient is stable, improving, no worsening dyspnea, no chest wall tenderness, pulse ox on room air is 95%, no fever or chills. From pulmonary standpoint patient could be considered for discharge home today on oral course of antibiotics, and he will need to be seen in follow-up by Dr. Woodard in one week I performed a history & physical examination of the patient and discussed their management with my nurse practitioner, Aline Collins. I reviewed the nurse practitioner's note and agree with the documented findings and plan of care. Lung sounds are diminished, with a few crackles at the left lower lobe. The findings and the impression was discussed with the patient. I attest to the documentation by the nurse practitioner. Time with Patient: Less than 30
[2017-11-10 12:26] LABS: Glucose,Whole Blood 227 mg/dL (75-99)
--- NOTE | 2017-11-10 12:30 | P.CRDCN ---
History of Present Illness History of present illness: Mr. Aguilar is a pleasant 62-year-old male past medical history significant for dyslipidemia, hypertension, diabetes mellitus, esophageal varices, chronic alcohol abuse, alcohol cirrhosis and history of GI bleeding. He denies history of coronary artery disease. We have been asked to see him in consultation for chest pain. He presented to the hospital yesterday with symptoms of chest pain, dizziness, nausea, shortness of breath, cough and palpitations. Visiting nurse came to his home and told him he was febrile and should come to the hospital for evaluation. He states while he was laying in bed he started feeling a heavy pressure sensation in the mid-sternal region that radiated down his left arm. The pain in his left arm was sharp in nature and very brief. He became short of breath, nauseated and felt racing in his chest. The pressure subsided after a few seconds but the other symptoms persisted. He describes the dizziness as a room spinning sensation. He was given antivert in the ED and his symptoms of dizziness seemed to subside. Chest x-ray and admission reveals left lower lobe patchy density. He was initiated on Zithromax and Rocephin. Has been seen in consultation for pulmonary services as well. He denies any further symptoms of chest pain since admission. He states he hasn't drank alcohol since his last admission. Recently admitted earlier this month with esophageal varices and underwent variceal ligation. EKG shows sinus tachycardia, heart rate [address] or T-wave abnormalities noted. CT angio chest was done for elevated d-dimer is negative for PE. Laboratory data reviewed, hemoglobin 8.8, platelets 182, d-dimer 1.0, sodium 142 , potassium 3.8, creatinine 0.7, lactic acid on admission 2. 6 repeat 1.3, cardiac enzymes negative 3. Current cardiac medications include aspirin 81 mg daily, atorvastatin 10 mg daily, nadolol 20 mg daily. He also takes Protonix, metformin, magnesium, folic acid, ferrous sulfate and Colace. Most recent dobutamine stress echocardiogram performed September 2016 was negative for stress-induced cardiac ischemia. Most recent echocardiogram performed reveals preserved left ventricular systolic function with ejection fraction 60-65%, moderately dilated left atrium and mild MR. Review of Systems At the time of my exam: CONSTITUTIONAL: Denies fever. Denies chills. EYES: Denies blurred vision. Denies vision changes. Denies eye pain. EARS, NOSE, MOUTH & THROAT: Denies headache. Denies sore throat. Denies ear pain. CARDIOVASCULAR: Denies chest pain. Denies shortness of breath. Denies orthopnea. Denies PND. Denies palpitations. RESPIRATORY: Complains of cough. GASTROINTESTINAL: Denies abdominal pain. Denies diarrhea. Denies constipation. Denies nausea. Denies vomiting. MUSCULOSKELETAL: Denies myalgias. INTEGUMENTARY: Denies pruitis. Denies rash. NEUROLOGIC: Denies numbness. Denies tingling. Denies weakness. PSYCHIATRIC: Denies anxiety. Denies depression. ENDOCRINE: Denies fatigue. Denies weight change. Denies polydipsia. Denies polyurina. GENITOURINARY: Denies burning, hematuria or urgency with micturation. HEMATOLOGIC: Denies history of anemia. Denies bleeding. Past Medical History Past Medical History: Atrial Fibrillation, Chest Pain / Angina, COPD, CVA/TIA, Diabetes Mellitus, GERD/Reflux, GI Bleed, Hyperlipidemia, Hypertension, Pulmonary Embolus (PE) Additional Past Medical History / Comment(s): pt is rt side dominant.Upper and lower GI bleeds/anemia, esophageal varicies/diverticulosis, bilateral ankle edema at times, 2016 bacterial septicemia, TIA, NIDDM type II, 2011, cervical disc disease with neck pain goes into R arm, DDD low back goes into R leg, scoliosis, epilepsy when a child,tinnitus bl ears alcoholic last drank 10/06/17 History of Any Multi-Drug Resistant Organisms: None Reported Past Surgical History: Appendectomy, Cholecystectomy Additional Past Surgical History / Comment(s): 07/20/17 EGD, 03/21/17 EGD/ colonoscopy, other colonoscopies. Past Anesthesia/Blood Transfusion Reactions: Previous Problems w/ Anesthesia Additional Past Anesthesia/Blood Transfusion Reaction / Comment(s): after appendix removed sob Smoking Status: Never smoker - Past Family History Mother Family Medical History: COPD, CVA/TIA, Dementia Additional Family Medical History / Comment(s): from a stroke Father Family Medical History: Pneumonia Additional Family Medical History / Comment(s): Father of pneumonia when he was close to 80 yrs old. Medications and Allergies Home Medications Medication Instructions Recorded Confirmed Type Docusate [Colace] 100 mg PO DAILY PRN #20 capsule 08/27/17 11/09/17 Rx Ferrous Sulfate [Feosol] 325 mg PO DAILY #30 tab 08/27/17 11/09/17 Rx metFORMIN HCL 1,000 mg PO BID 09/23/17 11/09/17 History Magnesium Oxide 400 mg PO DAILY #30 tablet 09/24/17 11/09/17 Rx Nadolol [Corgard] 20 mg PO DAILY #30 tab 09/24/17 11/09/17 Rx Aspirin 81 mg PO DAILY #30 chew 10/10/17 11/09/17 Rx Atorvastatin Calcium [Lipitor] 10 mg PO HS #30 tab 10/10/17 11/09/17 Rx Pantoprazole [Protonix] 40 mg PO AC-BID #60 tablet.dr 10/25/17 11/09/17 Rx Folic Acid 1 mg PO DAILY 11/09/17 11/09/17 History Multivitamins, Thera [Multivitamin 1 tab PO DAILY 11/09/17 11/09/17 History (formulary)] Thiamine [Vitamin B-1] 100 mg PO DAILY 11/09/17 11/09/17 History Allergies Allergy/AdvReac Type Severity Reaction Status Date / Time adhesive tape Allergy Rash/Hives Verified 11/09/17 09:53 egg AdvReac Nausea & Verified 11/09/17 09:53 Vomiting lisinopril AdvReac EYES Verified 11/09/17 09:53 BURN&ITCH/WEAKNESS tomato AdvReac Nausea & Verified 11/09/17 09:53 Vomiting & Diarrhea Physical Exam Vitals: Vital Signs Temp Pulse Pulse Pulse Resp BP BP 11/10/17 11:40 98.0 F 88 18 144/90 11/09/17 23:52 98.5 F 87 16 141/85 11/09/17 19:58 98.6 F 82 16 157/92 11/09/17 16:25 18 11/09/17 15:14 97.9 F 75 18 165/88 11/09/17 12:58 83 18 162/93 11/09/17 12:29 88 16 170/96 Pulse Ox 11/10/17 11:40 95 11/09/17 23:52 96 11/09/17 19:58 95 11/09/17 16:25 11/09/17 15:14 98 11/09/17 12:58 96 11/09/17 12:29 98 Intake and Output 11/09/17 11/10/17 11/10/17 22:59 06:59 14:59 Other: Voiding Method Toilet Blood pressure 145/87 heart rate 88 afebrile maintaining oxygen saturation on room air GENERAL: This is a 62-year-old male in no apparent distress at the time of my examination. HEENT: Head is atraumatic, normocephalic. Pupils are equal, round. Sclerae anicteric. Conjunctivae are clear. Mucous membranes of the mouth are moist. Neck is supple. There is no jugular venous distention. No carotid bruit is heard. LUNGS: Clear to auscultation no wheezes, rales or rhonchi. No chest wall tenderness is noted on palpation or with deep breathing. HEART: Regular rate and rhythm without murmurs, rubs or gallops. S1 and S2 heard. ABDOMEN: Soft, nontender. Bowel sounds are heard. No organomegaly noted. EXTREMITIES: No evidence of peripheral edema and no calf tenderness noted. VASCULAR: Radial and dorsalis pedis pulses palpated, no evidence of clubbing. NEUROLOGIC: Patient is awake, alert and oriented x3. Results 11/10/17 07:30 11/09/17 09:45 Cardiac Enzymes 11/09/17 11/09/17 Range/Units 14:48 21:55 CK-MB (CK-2) 0.6 0.6 (0.0-2.4) ng/mL Troponin I <0.012 <0.012 (0.000-0.034) ng/mL CBC 11/10/17 Range/Units 07:30 WBC 4.4 (3.8-10.6) k/uL RBC 3.28 L (4.30-5.90) m/uL Hgb 8.8 L (13.0-17.5) gm/dL Hct 28.5 L (39.0-53.0) % Plt Count 182 (150-450) k/uL Current Medications Generic Name Dose Route Start Last Admin Trade Name Freq PRN Reason Stop Dose Admin Aspirin 325 mg 11/10/17 09:00 Aspirin PO DAILY TANYA Atorvastatin Calcium 10 mg 11/09/17 21:00 11/09/17 20:58 Lipitor PO 10 mg HS TANYA Administration Ceftriaxone Sodium 1,000 mg 11/10/17 09:00 Rocephin IVP Q24HR [facility] Docusate Sodium 100 mg 11/09/17 12:50 Colace PO DAILY PRN Constipation Ferrous Sulfate 325 mg 11/10/17 09:00 Feosol PO DAILY [facility] Folic Acid 1 mg 11/10/17 09:00 Folic Acid PO DAILY [facility] Azithromycin 500 mg/ Dextrose/ 250 mls @ 125 mls/hr 11/11/17 09:00 Water IVPB Q24HR [facility] Azithromycin 500 mg/ Sodium 250 mls @ 125 mls/hr 11/10/17 11:30 11/10/17 11: 41 Chloride IVPB 11/10/17 13:29 125 mls/hr ONCE ONE Administration Insulin Aspart 0 unit 11/09/17 17:30 11/09/17 21:05 Novolog SQ Not Given ACHS [facility] Protocol Lorazepam 1 mg 11/09/17 13:52 11/09/17 21:05 Ativan IV 1 mg Q4HR PRN Administration Anxiety Magnesium Oxide 400 mg 11/10/17 09:00 Mag-Ox PO DAILY [facility] Metformin HCl 1,000 mg 11/09/17 21:00 11/09/17 20:58 Glucophage PO 1,000 mg BID [facility] Administration Morphine Sulfate 2 mg 11/09/17 12:41 Morphine Sulfate (Inj) IVP Q5M PRN Chest Pain Multivitamins 1 each 11/10/17 09:00 Theragran PO DAILY [facility] Nadolol 20 mg 11/10/17 09:00 11/10/17 11:41 Corgard PO Not Given DAILY [facility] Nitroglycerin 0.4 mg 11/09/17 12:41 Nitrostat SUBLINGUAL Q5M PRN Chest Pain Pantoprazole Sodium 40 mg 11/09/17 17:30 11/09/17 18:00 Protonix PO 40 mg AC-BID [facility] Administration Thiamine HCl 100 mg 11/10/17 09:00 11/10/17 11:42 Vitamin B-1 PO Not Given DAILY [facility] Intake and Output 11/09/17 11/10/17 11/10/17 22:59 06:59 14:59 Other: Voiding Method Toilet 11/10/17 07:30 11/09/17 09:45 Assessment and Plan Assessment: ASSESSMENT 1. Chest pain, atypical. An acute coronary event has been ruled out with no EKG evidence of ischemia and negative cardiac enzymes. 2. Pneumonia currently being treated with Rocephin and Zithromax. Pulmonology is following. Febrile at home per visiting nurse. 3. Hypertension 4. COPD 5. Dyslipidemia 6. Diabetes mellitus 7. Chronic alcohol abuse with evidence of alcohol related cirrhosis 8. History of esophageal varices with recent ligation PLAN Acute coronary event has been ruled out with no EKG evidence of ischemia and negative cardiac enzymes. His pain is atypical for acute coronary syndrome. Continue with ongoing medical management of pneumonia. Follow-up with Dr. LORRIE Hernandez in the office in 2-3 weeks. Thank you kindly for this consultation. Nurse Practitioner note has been reviewed, I agree with a documented findings and plan of care. Patient was seen and examined.
--- NOTE | 2017-11-10 14:42 | P.PN ---
Subjective Progress Note Date: 11/10/17 This is a 62-year-old male, patient of [facility]. He has a known past medical history of atrial fibrillation, COPD, diabetes mellitus type 2, hyperlipidemia, hypertension, PE, esophageal varices with bleeding requiring EGD with ligation in 10/21/2017, and also history of TIA. Patient reports being taken off of anticoagulation for his atrial fibrillation about 6 years ago due to GI bleeding. Patient has a known history of alcohol dependency. He reports spent 2 weeks since his last ETOH beverage. He presents to the emergency room with complaints of left-sided chest pain that radiated into the left arm. He's also been having some dizziness and shortness of breath. Patient reports the chest pain started around 6:30 this morning. However he has been sick for the past couple a days with fever 100.6 cough and shortness of breath. The cough is nonproductive. Patient will be admitted to observation. He was seen and examined in the ER. Chest x-ray showing a left lower lobe patchy density. He was started on Rocephin and azithromycin in the emergency room. He is tachycardic with a heart rate of 122 on admission. First troponin was negative. EKG was ordered in the ER. Cardiology has been consulted. Hemoglobin on admission is 8.7 he denies any active bleeding. But he has been taking iron supplements at home for his anemia and recent GI bleed. Lactic acid elevated at 2.6 is receiving fluid boluses in the ER. Patient reports a negative stress test 1 year ago. He's also been having some nausea and queasy stomach. Denies any diarrhea. Denies any burning with urination. 11/10/2017 resting comfortably in bed at this time. Patient currently on Rocephin and Zithromax for pneumonia. Heart rate improved currently 88. Remains afebrile. Sputum culture has been ordered Objective - Vital Signs Vital signs: Vital Signs Temp 98.0 F 11/10/17 11:40 Pulse 88 11/10/17 11:40 Resp 18 11/10/17 11:40 BP 144/90 11/10/17 11:40 Pulse Ox 95 11/10/17 11:40 Intake & Output 11/09/17 11/10/17 11/10/17 18:59 06:59 18:59 Intake Total 400 Balance 400 Weight 78.925 kg Intake: Oral 400 Other: Voiding Method Toilet - Exam Head normocephalic Neck supple Lungs clear to auscultation bilaterally no wheezing or crackles Heart regular rate and rhythm S1-S2, no rub or gallop Abdomen is soft nontender nondistended positive bowel sounds no hepatosplenomegaly Extremities no edema Neuro alert and orientated to 3 - Labs CBC & Chem 7: 11/10/17 07:30 11/09/17 09:45 Labs: Abnormal Lab Results - Last 24 Hours (Table) 11/09/17 11/09/17 11/09/17 Range/Units 14:48 17:18 20:49 RBC (4.30-5.90) m/uL Hgb (13.0-17.5) gm/dL Hct (39.0-53.0) % RDW (11.5-15.5) % D-Dimer 1.00 H (<0.60) mg/L FEU POC Glucose (mg/dL) 116 H 120 H (75-99) mg/dL 11/10/17 11/10/17 11/10/17 Range/Units 06:57 07:30 12:20 RBC 3.28 L (4.30-5.90) m/uL Hgb 8.8 L (13.0-17.5) gm/dL Hct 28.5 L (39.0-53.0) % RDW 19.5 H (11.5-15.5) % D-Dimer (<0.60) mg/L FEU POC Glucose (mg/dL) 124 H 227 H (75-99) mg/dL Microbiology - Last 24 Hours (Table) 11/09/17 11:51 Blood Culture - Preliminary Blood No Growth after 24 hours Assessment and Plan Assessment: 1. Chest pain with shortness of breath and tachycardia: First troponin negative. EKG ordered an ER. Cardiology has been consulted. Continue monitoring cardiac enzymes and serial EKGs. Symptoms could be related to patient's pneumonia. However he does have a history of PE. D-dimer 1.00. CTA negative for PE 2. Pneumonia with chest x-ray showing a left lower lobe patchy density. Patient started on Rocephin and azithromycin. Blood culture pending. Sputum Culture ordered 3. History of alcohol dependency: Patient reports it's been 2 weeks since his last alcoholic beverage. Continue with his thiamine, multivitamin and folic acid. Will add Ativan 1 mg IV every 4 hours as needed for any anxiety or agitation 4. Elevated lactic acid level likely related patient's pneumonia. Patient receiving IV fluids. Repeat lactic acid ordered an ER 5. History of paroxysmal atrial fibrillation per patient. Not on anticoagulation due to GI bleed 6. History of pulmonary embolism 7. Diabetes mellitus type 2: Continue metformin and sliding scale coverage 8. Hyperlipidemia continue statin 9. History of esophageal varices requiring EGD with ligation 10/21/2017 10. Iron deficiency anemia: Continue iron supplement. Continue to monitor hemoglobin. No active bleeding. Hemoglobin 8.7 11. History of TIA 12. History of essential hypertension 13. History of COPD stable no evidence of exacerbation DVT prophylaxis SCDs and GI prophylaxis protonix I performed an examination of the patient and discussed their management with the Nurse Practitioner. I have reviewed the Nurse Practitioner's notes and agree with the documented findings and plan of care
[2017-11-10 17:07] LABS: Glucose,Whole Blood 88 mg/dL (75-99)
[2017-11-10 20:09] LABS: Glucose,Whole Blood 127 mg/dL (75-99)
[2017-11-10] MEDS: ATORVASTATIN 10 MG TAB PO SCH (20:09)
[2017-11-11 06:55] LABS: Anisocytosis Slight; Basophils % (A) 1 %; Eosinophils # (A) 0.1 k/uL (0-0.7); Eosinophils % (A) 3 %; HCT 29.2 % (39.0-53.0); HGB 8.9 gm/dL (13.0-17.5); Hypochromasia Marked; Lymphocytes # (A) 1.6 k/uL (1.0-4.8); Lymphocytes % (A) 38 %; MCH 26.7 pg (25.0-35.0); MCHC 30.6 g/dL (31.0-37.0); MCV 87.3 fL (80.0-100.0); Mean Platelet Volume 7.7; Microcytosis Slight; Monocytes # (A) 0.3 k/uL (0-1.0); Monocytes % (A) 6 %; Neutrophils # (A) 2.1 k/uL (1.3-7.7); Neutrophils % (A) 50 %; Platelet Count 195 k/uL (150-450); Poikilocytosis Slight; RBC 3.34 m/uL (4.30-5.90); RDW 19.1 % (11.5-15.5); WBC 4.2 k/uL (3.8-10.6)
[2017-11-11 06:59] LABS: Glucose,Whole Blood 98 mg/dL (75-99)
[2017-11-11 07:23] LABS: ALT 43 U/L (21-72); AST 58 U/L (17-59); Albumin 3.3 g/dL (3.5-5.0); Alkaline Phosphatase 97 U/L (38-126); Anion Gap 11 mmol/L; Blood Urea Nitrogen 13 mg/dL (9-20); Carbon Dioxide 22 mmol/L (22-30); Chloride 106 mmol/L (98-107); Glucose 100 mg/dL (74-99); Potassium 4.1 mmol/L (3.5-5.1); Sodium 139 mmol/L (137-145); Total Bilirubin 0.3 mg/dL (0.2-1.3); Total Protein 6.8 g/dL (6.3-8.2)
[2017-11-11 07:56] VITALS: BP 125/80; PULSE 80; RESP 18; TEMP 98.2
[2017-11-11] MEDS: INSULIN ASPART 100 UNIT/ML 1 ML 10 ML VIAL SQ SCH ×2 (08:18→12:44)
[2017-11-11] MEDS: ASPIRIN 325 MG TAB PO SCH (08:20)
[2017-11-11] MEDS: NADOLOL 20 MG TAB PO SCH (08:20)
[2017-11-11] MEDS: THIAMINE 100 MG TAB PO SCH (08:20)
[2017-11-11] MEDS: metFORMIN 500 MG TAB PO SCH (08:21)
[2017-11-11] MEDS: FOLIC ACID 1 MG TAB PO SCH (08:21)
[2017-11-11] MEDS: MULTIVITAMINS, THERA 1 EACH TAB PO SCH (08:21)
[2017-11-11] MEDS: MAGNESIUM OXIDE 400 MG TAB PO SCH (08:21)
[2017-11-11] MEDS: FERROUS SULFATE 325 MG TAB PO SCH (08:21)
[2017-11-11] MEDS: PANTOPRAZOLE 40 MG TABLET PO SCH (08:21)
[2017-11-11] MEDS: cefTRIAXone IN SWFI 1,000 MG/10 ML SYRINGE IVP SCH (08:22)
[2017-11-11] MEDS ORDERED: AZITHROMYCIN 500 MG in DEXTROSE 5% IN WATER 250 ML IVPB SCH ×2 (09:00)
--- NOTE | 2017-11-11 11:31 | P.PN ---
Subjective Progress Note Date: 11/11/17 This is a 62-year-old male, patient of [facility]. He has a known past medical history of atrial fibrillation, COPD, diabetes mellitus type 2, hyperlipidemia, hypertension, PE, esophageal varices with bleeding requiring EGD with ligation in 10/21/2017, and also history of TIA. Patient reports being taken off of anticoagulation for his atrial fibrillation about 6 years ago due to GI bleeding. Patient has a known history of alcohol dependency. He reports spent 2 weeks since his last ETOH beverage. He presents to the emergency room with complaints of left-sided chest pain that radiated into the left arm. He's also been having some dizziness and shortness of breath. Patient reports the chest pain started around 6:30 this morning. However he has been sick for the past couple a days with fever 100.6 cough and shortness of breath. The cough is nonproductive. Patient will be admitted to observation. He was seen and examined in the ER. Chest x-ray showing a left lower lobe patchy density. He was started on Rocephin and azithromycin in the emergency room. He is tachycardic with a heart rate of 122 on admission. First troponin was negative. EKG was ordered in the ER. Cardiology has been consulted. Hemoglobin on admission is 8.7 he denies any active bleeding. But he has been taking iron supplements at home for his anemia and recent GI bleed. Lactic acid elevated at 2.6 is receiving fluid boluses in the ER. Patient reports a negative stress test 1 year ago. He's also been having some nausea and queasy stomach. Denies any diarrhea. Denies any burning with urination. 11/11/2017 patient has been cleared for discharge by pulmonary and cardiology services. Still complaining of some cough. Patient reporting that he doesn't feel ready to be discharged yet. Mucinex will be added patient denies any chest pain or shortness breath. Denies any nausea or vomiting. Denies any bowel movement changes or urinary symptoms. He is requesting a refill on his BP med before discharge Objective - Vital Signs Vital signs: Vital Signs Temp 98.2 F 11/11/17 07:35 Pulse 80 11/11/17 07:35 Resp 18 11/11/17 07:35 BP 125/80 11/11/17 07:35 Pulse Ox 97 11/11/17 07:35 Intake & Output 11/10/17 11/11/17 11/11/17 18:59 06:59 18:59 Intake Total 800 480 Balance 800 480 Intake: Oral 800 480 Other: Voiding Method Toilet Toilet Toilet - Exam Head normocephalic Neck supple Lungs clear to auscultation bilaterally no wheezing or crackles Heart regular rate and rhythm S1-S2, no rub or gallop Abdomen is soft nontender nondistended positive bowel sounds no hepatosplenomegaly Extremities no edema Neuro alert and orientated to 3 - Labs CBC & Chem 7: 11/11/17 06:24 11/11/17 06:24 Labs: Abnormal Lab Results - Last 24 Hours (Table) 11/10/17 11/10/17 11/10/17 Range/Units 07:30 12:20 20:06 RBC (4.30-5.90) m/uL Hgb (13.0-17.5) gm/dL Hct (39.0-53.0) % MCHC (31.0-37.0) g/dL RDW (11.5-15.5) % Glucose 113 H (74-99) mg/dL POC Glucose (mg/dL) 227 H 127 H (75-99) mg/dL AST 70 H (17-59) U/L Albumin 3.4 L (3.5-5.0) g/dL 11/11/17 11/11/17 Range/Units 06:24 06:24 RBC 3.34 L (4.30-5.90) m/uL Hgb 8.9 L (13.0-17.5) gm/dL Hct 29.2 L (39.0-53.0) % MCHC 30.6 L (31.0-37.0) g/dL RDW 19.1 H (11.5-15.5) % Glucose 100 H (74-99) mg/dL POC Glucose (mg/dL) (75-99) mg/dL AST (17-59) U/L Albumin 3.3 L (3.5-5.0) g/dL Microbiology - Last 24 Hours (Table) 11/09/17 11:51 Blood Culture - Preliminary Blood No Growth after 24 hours Assessment and Plan Assessment: 1. Chest pain with shortness of breath and tachycardia: Troponins are negative 3 sets. No EKG changes. Patient seen evaluated by cardiology and cleared for discharge. Elevated d-dimer CTA negative for PE. Symptoms could be related to patient's pneumonia. 2. Pneumonia with chest x-ray showing a left lower lobe patchy density. Patient started on Rocephin and azithromycin. Blood culture negative 3. History of alcohol dependency: Patient reports it's been 2 weeks since his last alcoholic beverage. Continue with his thiamine, multivitamin and folic acid. Will add Ativan 1 mg IV every 4 hours as needed for any anxiety or agitation 4. Elevated lactic acid level likely related patient's pneumonia. Improved with IV fluid 5. History of paroxysmal atrial fibrillation per patient. Not on anticoagulation due to GI bleed 6. History of pulmonary embolism 7. Diabetes mellitus type 2: Continue metformin and sliding scale coverage 8. Hyperlipidemia continue statin 9. History of esophageal varices requiring EGD with ligation 10/21/2017 10. Iron deficiency anemia: Continue iron supplement. Continue to monitor hemoglobin. No active bleeding. Hemoglobin 8.7 11. History of TIA 12. History of essential hypertension 13. History of COPD stable no evidence of exacerbation GI prophylaxis Protonix and DVT prophylaxis SCDs. Patient not a candidate for anticoagulation at this point due to history of GI bleed earlier in October Anticipate discharge possibly later today or tomorrow I performed an examination of the patient and discussed their management with the physician Charter Representative. I have reviewed the Physician Charter Representative's notes and agree with the documented findings and plan of care
[2017-11-11 12:31] LABS: Glucose,Whole Blood 85 mg/dL (75-99)
--- NOTE | 2017-11-11 13:07 | P.DS ---
Providers Date of admission: 11/09/17 12:41 Expected date of discharge: 11/11/17 Attending physician: Charlette Finney Consults: 11/09/17 12:41 Consult Physician Urgent Consulting Provider: Magdy Sheehan Consult Reason/Comments: chest pain, tachycardia Do you want consulting provider notified?: Yes 11/09/17 15:01 Consult Physician Routine Consulting Provider: Barry Marcus Consult Reason/Comments: pneumonia, Shortness of breath Do you want consulting provider notified?: Yes Primary care physician: Yoon Phillips [facility] Course: Discharge diagnosis 1. Chest pain with shortness of breath and tachycardia: Troponins are negative 3 sets. No EKG changes. Patient seen evaluated by cardiology and cleared for discharge. Elevated d-dimer CTA negative for PE. Symptoms could be related to patient's pneumonia. 2. Community-acquired Pneumonia with chest x-ray showing a left lower lobe patchy density. Patient started on Rocephin and azithromycin. Blood culture negative 3. History of alcohol dependency: Patient reports it's been 2 weeks since his last alcoholic beverage. Continue with his thiamine, multivitamin and folic acid. 4. Elevated lactic acid level likely related patient's pneumonia. Improved with IV fluid 5. History of paroxysmal atrial fibrillation per patient. Not on anticoagulation due to GI bleed 6. History of pulmonary embolism 7. Diabetes mellitus type 2: Continue metformin and sliding scale coverage 8. Hyperlipidemia continue statin 9. History of esophageal varices requiring EGD with ligation 10/21/2017 10. Iron deficiency anemia: Continue iron supplement. Continue to monitor hemoglobin. No active bleeding. Hemoglobin 8.7 11. History of TIA 12. History of essential hypertension 13. History of COPD stable no evidence of exacerbation Hospital course This is a 62-year-old male, patient of [facility]. He has a known past medical history of atrial fibrillation, COPD, diabetes mellitus type 2, hyperlipidemia, hypertension, PE, esophageal varices with bleeding requiring EGD with ligation in 10/21/2017, and also history of TIA. Patient reports being taken off of anticoagulation for his atrial fibrillation about 6 years ago due to GI bleeding. Patient has a known history of alcohol dependency. He reports spent 2 weeks since his last ETOH beverage. He presents to the emergency room with complaints of left-sided chest pain that radiated into the left arm. He's also been having some dizziness and shortness of breath. Patient reports the chest pain started around 6:30 this morning. However he has been sick for the past couple a days with fever 100.6 cough and shortness of breath. The cough is nonproductive. Patient will be admitted to observation. He was seen and examined in the ER. Chest x-ray showing a left lower lobe patchy density. He was started on Rocephin and azithromycin in the emergency room. He is tachycardic with a heart rate of 122 on admission. First troponin was negative. EKG was ordered in the ER. Cardiology has been consulted. Hemoglobin on admission is 8.7 he denies any active bleeding. But he has been taking iron supplements at home for his anemia and recent GI bleed. Lactic acid elevated at 2.6 is receiving fluid boluses in the ER. Patient reports a negative stress test 1 year ago. He's also been having some nausea and queasy stomach. Denies any diarrhea. Denies any burning with urination. Patient seen by cardiology and pulmonary service. No evidence of acute coronary syndrome. Chest discomfort was likely related to his cough from his pneumonia. Patient was cleared by both cardiology and pulmonary service for discharge. He has been afebrile and no elevation in his white count. Patient is medically stable for discharge and has been cleared by consulting physicians. I performed an examination of the patient and discussed their management with the physician Fill Manager. I have reviewed the Physician Fill Manager's notes and agree with the documented findings and plan of care Patient Condition at Discharge: Stable Plan - Discharge Summary Discharge Rx Participant: Yes New Discharge Prescriptions: New Cefuroxime Axetil [Ceftin] 500 mg PO BID #20 tab guaiFENesin [Mucinex] 1,200 mg PO Q12HR #60 tablet.er Continue Docusate [Colace] 100 mg PO DAILY PRN #20 capsule PRN Reason: Constipation Ferrous Sulfate [Feosol] 325 mg PO DAILY #30 tab metFORMIN HCL 1,000 mg PO BID Magnesium Oxide 400 mg PO DAILY #30 tablet Aspirin 81 mg PO DAILY #30 chew Atorvastatin Calcium [Lipitor] 10 mg PO HS #30 tab Pantoprazole [Protonix] 40 mg PO AC-BID #60 tablet. Folic Acid 1 mg PO DAILY Multivitamins, Thera [Multivitamin (formulary)] 1 tab PO DAILY Thiamine [Vitamin B-1] 100 mg PO DAILY Nadolol [Corgard] 20 mg PO DAILY #30 tab Discharge Medication List Docusate [Colace] 100 mg PO DAILY PRN #20 capsule 08/27/17 [Rx] Ferrous Sulfate [Feosol] 325 mg PO DAILY #30 tab 08/27/17 [Rx] metFORMIN HCL 1,000 mg PO BID 09/23/17 [History] Magnesium Oxide 400 mg PO DAILY #30 tablet 09/24/17 [Rx] Aspirin 81 mg PO DAILY #30 chew 10/10/17 [Rx] Atorvastatin Calcium [Lipitor] 10 mg PO HS #30 tab 10/10/17 [Rx] Pantoprazole [Protonix] 40 mg PO AC-BID #60 tablet.dr 10/25/17 [Rx] Folic Acid 1 mg PO DAILY 11/09/17 [History] Multivitamins, Thera [Multivitamin (formulary)] 1 tab PO DAILY 11/09/17 [History ] Thiamine [Vitamin B-1] 100 mg PO DAILY 11/09/17 [History] Cefuroxime Axetil [Ceftin] 500 mg PO BID #20 tab 11/11/17 [Rx] Nadolol [Corgard] 20 mg PO DAILY #30 tab 11/11/17 [Rx] guaiFENesin [Mucinex] 1,200 mg PO Q12HR #60 tablet.er 11/11/17 [Rx] Follow up Appointment(s)/Referral(s): Barry Marcus MD [STAFF PHYSICIAN] - 11/19/17 1:00 pm Moshe Hernandez MD [STAFF PHYSICIAN] - 11/24/17 2:15 pm Yoon Phillips DO [Primary Care Provider] - 1 Week Patient Instructions/Handouts: Chest Pain (DC) Activity/Diet/Wound Care/Special Instructions: Diet: cardiac Activity: as tolerated Discharge Disposition: HOME SELF-CARE
--- NOTE | 2017-11-11 13:07 | P.PN ---
Subjective Progress Note Date: 11/11/17 Principal diagnosis: Suspected left lower lobe pneumonia, community-acquired This is a 62-year-old white male with history of atrial fibrillation, pulmonary embolism, hypertension, CVA, type 2 diabetes, esophageal varices and alcohol related liver disease, cervical disc disease, patient was last seen on consultation on 10/22/2017, and at that time he had lightheadedness dizziness and the drug colored bowel movements. Patient was found to have upper GI bleeding secondary to esophageal varices, underwent ligation of esophageal varices by gastroenterology. Patient was readmitted this time with multiple complaints including left-sided chest pain, with radiation to the left arm, some dizziness and shortness of breath as well as dry hacking cough. His visiting nurse told him that he is running a fever with a temp of 100.6, she suggested coming to the ER. In the ER, his chest x-ray was suggestive of a limited left lower lobe infiltrate, CT of the chest was done, showed evidence of persistent reticulation and fibrosis in the left lung involving upper and lower lung guadalupe. Patient was admitted, placed on antibiotics, and I was asked to see him on consultation. Presently during my evaluation, patient denies any headaches, he feels a slightly lightheaded, no vertigo, no nausea no vomiting no abdominal pain no chest pain, he has intermittent dry cough, denies any fever or chills at present, no nausea no vomiting no abdominal pain no melena no hematemesis is no dysuria and no frequency no urgency. On 11/10/2017 patient seen in follow-up on observation unit, he is resting in bed, in no acute distress, lung sounds are diminished to auscultation, no rhonchi, no wheezes noted. Denies any fever or chills, he has been afebrile during this admission, room air pulse ox is 95%, vital signs are stable, respirations are even and nonlabored. No chest pain, no worsening chest congestion, no nausea. Today's blood work was reviewed, and showed WBC of 4.4, hemoglobin is stable at 8.8, no BMP. Patient remains on empiric antibiotics in the form of Zithromax and Rocephin. CT angios was nondiagnostic for pulmonary embolism and parenchymal scarring in the left upper and lower lobes, but no suspicious acute pulmonary process. Clinically patient remains stable, and coverage ambulation. He is awaiting to be evaluated by cardiology in regards to his chest discomfort and palpitations that were present on admission On 11/03/2017 patient seen in follow-up on observation unit, remains stable, improving, no worsening dyspnea, lung sounds are diminished, no rhonchi, no wheezing noted. Room air pulse ox is 97%, vitals are stable, patient is afebrile, no chest congestion, no sputum production. Blood culture remains negative. Patient denies any fever or chills, no chest wall tenderness, no hemoptysis. Patient has been treated with a combination of Zithromax and Rocephin, he T angios was negative for any acute pulmonary process, and showed some chronic parenchymal scarring in the left upper and lower lobes. Currently patient is doing well, no specific complaints. No acute events overnight. From pulmonary standpoint patient can be discharged home today. Objective - Vital Signs Vital signs: Vital Signs Temp 98.2 F 11/11/17 07:35 Pulse 80 11/11/17 07:35 Resp 18 11/11/17 12:00 BP 125/80 11/11/17 07:35 Pulse Ox 97 11/11/17 07:35 Intake & Output 11/10/17 11/11/17 11/11/17 18:59 06:59 18:59 Intake Total 800 480 Balance 800 480 Intake: Oral 800 480 Other: Voiding Method Toilet Toilet Toilet - Exam Physical Exam: Revealed a 62-year-old white male, in no distress. On room air. Head: Atraumatic, normocephalic. HEENT:[Neck is supple.] [No neck masses.] [No thyromegaly.] [No JVD.] PERRLA, EOMI, no icterus. Chest: [Diminished lung sounds bilaterally, no rhonchi, no rales, no wheezes Cardiac Exam: [Normal S1 and S2, no S3 gallop, no murmur.] Abdomen: [Soft, nontender, no megaly, no rebound, no guarding, normal bowel sounds.] Extremities: [No clubbing, no edema, no cyanosis.] Neurological Exam: [No focal neurologic deficit.] Psychiatric: Normal mood affect and mental status examination. Lymphatics: No lymphadenopathy. - Labs CBC & Chem 7: 11/11/17 06:24 11/11/17 06:24 Labs: Abnormal Lab Results - Last 24 Hours (Table) 11/10/17 11/10/17 11/11/17 Range/Units 07:30 20:06 06:24 RBC 3.34 L (4.30-5.90) m/uL Hgb 8.9 L (13.0-17.5) gm/dL Hct 29.2 L (39.0-53.0) % MCHC 30.6 L (31.0-37.0) g/dL RDW 19.1 H (11.5-15.5) % Glucose 113 H (74-99) mg/dL POC Glucose (mg/dL) 127 H (75-99) mg/dL AST 70 H (17-59) U/L Albumin 3.4 L (3.5-5.0) g/dL 11/11/17 Range/Units 06:24 RBC (4.30-5.90) m/uL Hgb (13.0-17.5) gm/dL Hct (39.0-53.0) % MCHC (31.0-37.0) g/dL RDW (11.5-15.5) % Glucose 100 H (74-99) mg/dL POC Glucose (mg/dL) (75-99) mg/dL AST (17-59) U/L Albumin 3.3 L (3.5-5.0) g/dL Microbiology - Last 24 Hours (Table) 11/09/17 11:51 Blood Culture - Preliminary Blood No Growth after 24 hours Assessment and Plan Plan: Assessment: 1 possible left lower lobe pneumonia, initial chest x-ray showed a left lower lobe patchy density, however CT angios showed some chronic parenchymal scarring in the left upper and lower lobes, but no acute infiltrates. 2 chest pain with negative troponins, cardiology is evaluating. Cardiac enzymes are being monitored. 3 alcohol dependency and alcohol related liver disease 4 diabetes type V esophageal varices requiring recent ligation on 10/21/2017 6 Iron deficiency anemia 7 underlying COPD presently inactive. Recommendation: Patient remains stable, no specific complaints, no fever, no chills, no chest wall tenderness, no worsening dyspnea. He has been treated empirically with Rocephin and Zithromax, improved. Patient can be discharged home today, on oral course of antibiotics, follow-up with Dr. Marcus in the office in one week. I performed a history & physical examination of the patient and discussed their management with my nurse practitioner, Aline Collins. I reviewed the nurse practitioner's note and agree with the documented findings and plan of care. Lung sounds are diminished. The findings and the impression was discussed with the patient. I attest to the documentation by the nurse practitioner. Time with Patient: Less than 30
[2017-11-11] MEDS ORDERED: guaiFENesin 600 MG TABLET.ER PO SCH (21:00)
== END 2017-11-11 13:55 | disposition home or self-care (01) ==
LOC: EC 09:25 → 3OBS 12:41
PROVIDERS: ADMIT Internal Medicine; ATTEND Internal Medicine
DX: R07.89 Other chest pain (principal); J18.9 Pneumonia, unspecified organism; F10.20 Alcohol dependence, uncomplicated; R79.89 Other specified abnormal findings of blood chemistry; R74.0 Nonspecific elevation of levels of transaminase and lactic acid dehydrogenase [LDH]; I48.0 Paroxysmal atrial fibrillation; K70.30 Alcoholic cirrhosis of liver without ascites; E11.9 Type 2 diabetes mellitus without complications; I10 Essential (primary) hypertension; J44.0 Chronic obstructive pulmonary disease with (acute) lower respiratory infection; D50.9 Iron deficiency anemia, unspecified; E78.5 Hyperlipidemia, unspecified; G40.909 Epilepsy, unspecified, not intractable, without status epilepticus; K21.9 Gastro-esophageal reflux disease without esophagitis; M50.90 Cervical disc disorder, unspecified, unspecified cervical region; M51.36 Other intervertebral disc degeneration, lumbar region; R42 Dizziness and giddiness; K57.90 Diverticulosis of intestine, part unspecified, without perforation or abscess without bleeding; F41.9 Anxiety disorder, unspecified; F32.9 Major depressive disorder, single episode, unspecified; Z90.49 Acquired absence of other specified parts of digestive tract; Z79.84 Long term (current) use of oral hypoglycemic drugs; Z79.82 Long term (current) use of aspirin; Z79.899 Other long term (current) drug therapy; Z91.012 Allergy to eggs; Z91.018 Allergy to other foods; Z91.048 Other nonmedicinal substance allergy status; Z88.8 Allergy status to other drugs, medicaments and biological substances; Z90.89 Acquired absence of other organs; Z86.19 Personal history of other infectious and parasitic diseases; Z86.73 Personal history of transient ischemic attack (TIA), and cerebral infarction without residual deficits; Z86.711 Personal history of pulmonary embolism; Z87.19 Personal history of other diseases of the digestive system; Z81.8 Family history of other mental and behavioral disorders; Z82.3 Family history of stroke; Z82.5 Family history of asthma and other chronic lower respiratory diseases
CPT/HCPCS: 99285 ×2; 96375 ×3; 96361 ×3; 96365; 96366 ×2; 96376; 36415; 93005; 85379; 80061; 80053 ×3; 82550; 82553; 83605; 84484; 85025 ×3; 87040; 83036; 71046; 71275; G0378 ×3; J2060; J0456 ×2; J0696 ×2; Q9967

== ENCOUNTER 2017-11-21 12:00 | Inpatient (IN) | payer OTHER ==
--- NOTE | 2017-11-21 12:14 | ED ---
General Adult HPI - General Chief complaint: Shortness of Breath Stated complaint: elis Time Seen by Provider: 11/21/17 12:00 Source: patient, RN notes reviewed Mode of arrival: EMS Limitations: no limitations - History of Present Illness Initial comments: This is a 62-year-old male with past medical history significant for hypertension diabetes and COPD. Patient comes in today stating that he started with cold couple days ago and since then he's been coughing more and having a little bit of shortness of breath. Patient states when he coughs or takes a deep breath he has some left-sided chest pain. Patient describes it as a sharpness. Patient also states it's painful to palpate that area. Patient denies any palpitations. Patient denies any chest pain while at rest. Patient denies any recent fever or chills. Patient denies abdominal pain patient denies nausea vomiting or diarrhea. Patient denies headache patient denies numbness weakness. Patient denies lightheadedness dizziness or nursing episode. - Related Data Home Medications Medication Instructions Recorded Confirmed metFORMIN HCL 1,000 mg PO BID 09/23/17 11/21/17 Folic Acid 1 mg PO DAILY 11/09/17 11/21/17 Multivitamins, Thera [Multivitamin 1 tab PO DAILY 11/09/17 11/21/17 (formulary)] Thiamine [Vitamin B-1] 100 mg PO DAILY 11/09/17 11/21/17 Previous Rx's Medication Instructions Recorded Docusate [Colace] 100 mg PO DAILY PRN #20 capsule 08/27/17 Ferrous Sulfate [Feosol] 325 mg PO DAILY #30 tab 08/27/17 Magnesium Oxide 400 mg PO DAILY #30 tablet 09/24/17 Aspirin 81 mg PO DAILY #30 chew 10/10/17 Atorvastatin Calcium [Lipitor] 10 mg PO HS #30 tab 10/10/17 Pantoprazole [Protonix] 40 mg PO AC-BID #60 tablet. 10/25/17 Cefuroxime Axetil [Ceftin] 500 mg PO BID #20 tab 11/11/17 Nadolol [Corgard] 20 mg PO DAILY #30 tab 11/11/17 Allergies Allergy/AdvReac Type Severity Reaction Status Date / Time adhesive tape Allergy Rash/Hives Verified 11/21/17 12:51 egg AdvReac Nausea & Verified 11/21/17 12:51 Vomiting lisinopril AdvReac EYES Verified 11/21/17 12:51 BURN&ITCH/WEAKNESS tomato AdvReac Nausea & Verified 11/21/17 12:51 Vomiting & Diarrhea Review of Systems ROS Statement: Those systems with pertinent positive or pertinent negative responses have been documented in the HPI. ROS Other: All systems not noted in ROS Statement are negative. Past Medical History Past Medical History: Atrial Fibrillation, Chest Pain / Angina, COPD, CVA/TIA, Diabetes Mellitus, GERD/Reflux, GI Bleed, Hyperlipidemia, Hypertension, Pulmonary Embolus (PE) Additional Past Medical History / Comment(s): pt is rt side dominant.Upper and lower GI bleeds/anemia, esophageal varicies/diverticulosis, bilateral ankle edema at times, 2016 bacterial septicemia, TIA, NIDDM type II, 2011, cervical disc disease with neck pain goes into R arm, DDD low back goes into R leg, scoliosis, epilepsy when a child,tinnitus bl ears History of Any Multi-Drug Resistant Organisms: None Reported Past Surgical History: Appendectomy, Cholecystectomy Additional Past Surgical History / Comment(s): 07/20/17 EGD, 03/21/17 EGD/ colonoscopy, other colonoscopies. Past Anesthesia/Blood Transfusion Reactions: Previous Problems w/ Anesthesia Additional Past Anesthesia/Blood Transfusion Reaction / Comment(s): after appendix removed sob Past Psychological History: Anxiety, Depression Smoking Status: Never smoker Past Alcohol Use History: Occasional Past Drug Use History: None Reported - Past Family History Mother Family Medical History: COPD, CVA/TIA, Dementia Additional Family Medical History / Comment(s): from a stroke Father Family Medical History: Pneumonia Additional Family Medical History / Comment(s): Father of pneumonia when he was close to 80 yrs old. General Exam - General Exam Comments Initial Comments: GENERAL: Patient is well-developed and well-nourished. Patient is nontoxic and well- hydrated and is in no acute distress. ENT: Neck is soft and supple. No significant lymphadenopathy is noted. Oropharynx is clear. Moist mucous membranes. Neck has full range of motion without eliciting any pain EYES: The sclera were anicteric and conjunctiva were pink and moist. Extraocular movements were intact and pupils were equal round and reactive to light. Eyelids were unremarkable. PULMONARY: Unlabored respirations. Good breath sounds bilaterally. No audible rales rhonchi or wheezing was noted. CARDIOVASCULAR: There is a regular rate and rhythm without any murmurs gallops or rubs. Patient 's left lateral chest wall is tender to palpation ABDOMEN: Soft and nontender with normal bowel sounds. No palpable organomegaly was noted. There is no palpable pulsatile mass. SKIN: Skin is clear with no lesions or rashes and otherwise unremarkable. NEUROLOGIC: Patient is alert and oriented x3. Cranial nerves II through XII are grossly intact. Motor and sensory are also intact. Normal speech, volume and content. Symmetrical smile. MUSCULOSKELETAL: Normal extremities with adequate strength and full range of motion. No lower extremity swelling or edema. No calf tenderness. LYMPHATICS: No significant lymphadenopathy is noted PSYCHIATRIC: Normal psychiatric evaluation. Normal interpersonal interactions appears functionally intact in deals appropriately with others. No signs of depression. No signs of anxiety. Limitations: no limitations Course Vital Signs 11/21/17 12:07 Temperature 99.5 F Pulse Rate 99 Respiratory 18 Rate Blood Pressure 154/94 O2 Sat by Pulse 97 Oximetry Medical Decision Making - Medical Decision Making EKG shows a normal sinus rhythm at 90 bpm VA interval 160 QRS is 74 QT interval 38 QTC is 474. Patient's EKG shows no ST segment elevation or depression or T wave abnormalities are noted. Chest x-ray showed no acute abnormality I went back and reevaluated the patient patient stated he was continuing to have chest pain and it did not improve. I spoke with Dr. Finney he agreed to admit the patient admitted the patient I wrote admitting orders I did consult cardiology - Lab Data Result diagrams: 11/21/17 12:30 11/21/17 12:30 Lab Results 11/21/17 11/21/17 11/21/17 Range/Units 12:30 12:30 12:30 WBC 3.1 L (3.8-10.6) k/uL RBC 3.14 L (4.30-5.90) m/uL Hgb 8.2 L (13.0-17.5) gm/dL Hct 27.1 L (39.0-53.0) % MCV 86.5 (80.0-100.0) fL MCH 26.3 (25.0-35.0) pg MCHC 30.4 L (31.0-37.0) g/dL RDW 18.2 H (11.5-15.5) % Plt Count 85 L D (150-450) k/uL Neutrophils % 49 % Lymphocytes % 39 % Monocytes % 8 % Eosinophils % 1 % Basophils % 1 % Neutrophils # 1.5 (1.3-7.7) k/uL Lymphocytes # 1.2 (1.0-4.8) k/uL Monocytes # 0.2 (0-1.0) k/uL Eosinophils # 0.0 (0-0.7) k/uL Basophils # 0.0 (0-0.2) k/uL Manual Slide Review Performed Hypochromasia Marked Poikilocytosis Slight Anisocytosis Slight PT (9.0-12.0) sec INR (<1.2) APTT (22.0-30.0) sec Sodium 144 (137-145) mmol/L Potassium 4.1 (3.5-5.1) mmol/L Chloride 106 (98-107) mmol/L Carbon Dioxide 25 (22-30) mmol/L Anion Gap 13 mmol/L BUN 12 (9-20) mg/dL Creatinine 0.67 (0.66-1.25) mg/dL Est GFR (CKD-EPI)AfAm >90 (>60 ml/min/1.73 sqM) Est GFR (CKD-EPI)NonAf >90 (>60 ml/min/1.73 sqM) Glucose 115 H (74-99) mg/dL Calcium 8.3 L (8.4-10.2) mg/dL Total Bilirubin 0.5 (0.2-1.3) mg/dL AST 86 H (17-59) U/L ALT 41 (21-72) U/L Alkaline Phosphatase 97 (38-126) U/L Total Creatine Kinase 255 H (55-170) U/L CK-MB (CK-2) 1.0 (0.0-2.4) ng/mL CK-MB (CK-2) Rel Index 0.4 Troponin I <0.012 (0.000-0.034) ng/mL Total Protein 6.9 (6.3-8.2) g/dL Albumin 3.5 (3.5-5.0) g/dL 11/21/17 Range/Units 12:30 WBC (3.8-10.6) k/uL RBC (4.30-5.90) m/uL Hgb (13.0-17.5) gm/dL Hct (39.0-53.0) % MCV (80.0-100.0) fL MCH (25.0-35.0) pg MCHC (31.0-37.0) g/dL RDW (11.5-15.5) % Plt Count (150-450) k/uL Neutrophils % % Lymphocytes % % Monocytes % % Eosinophils % % Basophils % % Neutrophils # (1.3-7.7) k/uL Lymphocytes # (1.0-4.8) k/uL Monocytes # (0-1.0) k/uL Eosinophils # (0-0.7) k/uL Basophils # (0-0.2) k/uL Manual Slide Review Hypochromasia Poikilocytosis Anisocytosis PT 11.8 (9.0-12.0) sec INR 1.2 H (<1.2) APTT 28.1 (22.0-30.0) sec Sodium (137-145) mmol/L Potassium (3.5-5.1) mmol/L Chloride (98-107) mmol/L Carbon Dioxide (22-30) mmol/L Anion Gap mmol/L BUN (9-20) mg/dL Creatinine (0.66-1.25) mg/dL Est GFR (CKD-EPI)AfAm (>60 ml/min/1.73 sqM) Est GFR (CKD-EPI)NonAf (>60 ml/min/1.73 sqM) Glucose (74-99) mg/dL Calcium (8.4-10.2) mg/dL Total Bilirubin (0.2-1.3) mg/dL AST (17-59) U/L ALT (21-72) U/L Alkaline Phosphatase (38-126) U/L Total Creatine Kinase (55-170) U/L CK-MB (CK-2) (0.0-2.4) ng/mL CK-MB (CK-2) Rel Index Troponin I (0.000-0.034) ng/mL Total Protein (6.3-8.2) g/dL Albumin (3.5-5.0) g/dL Disposition Clinical Impression: Chest pain Disposition: ADMITTED IP TO THIS HOSP Referrals: Yoon Phillips DO [Primary Care Provider] - 1-2 days Time of Disposition: 14:15
[2017-11-21 12:58] LABS: Anisocytosis Slight; Basophils % (A) 1 %; Eosinophils % (A) 1 %; HCT 27.1 % (39.0-53.0); HGB 8.2 gm/dL (13.0-17.5); Hypochromasia Marked; Lymphocytes # (A) 1.2 k/uL (1.0-4.8); Lymphocytes % (A) 39 %; MCH 26.3 pg (25.0-35.0); MCHC 30.4 g/dL (31.0-37.0); MCV 86.5 fL (80.0-100.0); Monocytes # (A) 0.2 k/uL (0-1.0); Monocytes % (A) 8 %; Neutrophils # (A) 1.5 k/uL (1.3-7.7); Neutrophils % (A) 49 %; Poikilocytosis Slight; RBC 3.14 m/uL (4.30-5.90); RDW 18.2 % (11.5-15.5); WBC 3.1 k/uL (3.8-10.6)
[2017-11-21 13:01] LABS: ALT 41 U/L (21-72); AST 86 U/L (17-59); Albumin 3.5 g/dL (3.5-5.0); Alkaline Phosphatase 97 U/L (38-126); Anion Gap 13 mmol/L; Blood Urea Nitrogen 12 mg/dL (9-20); Calcium 8.3 mg/dL (8.4-10.2); Carbon Dioxide 25 mmol/L (22-30); Chloride 106 mmol/L (98-107); Glucose 115 mg/dL (74-99); Potassium 4.1 mmol/L (3.5-5.1); Sodium 144 mmol/L (137-145); Total Bilirubin 0.5 mg/dL (0.2-1.3); Total Protein 6.9 g/dL (6.3-8.2)
[2017-11-21 13:02] LABS: INR 1.2 (<1.2); Partial Thromboplastin Time 28.1 sec (22.0-30.0); Prothrombin Time 11.8 sec (9.0-12.0)
--- NOTE | 2017-11-21 13:03 | XR ---
EXAMINATION TYPE: XR chest 2V DATE OF EXAM: 11/21/2017 HISTORY: difficulty breathing. REFERENCE: Previous study dated 11/09/2017. FINDINGS: There is a moderate levoscoliosis. Left lower lobe airspace disease is partially cleared but has not completely resolved. The right lung remains clear. Pleural space are clear. The heart is not enlarged. IMPRESSION: PARTIAL CLEARING OF THE PATIENT'S LEFT LOWER LOBE AIRSPACE DISEASE. FURTHER FOLLOW-UP IS SUGGESTED.
[2017-11-21 13:13] LABS: Creatine Kinase 255 U/L (55-170)
[2017-11-21 13:24] LABS: Troponin I <0.012 ng/mL (0.000-0.034)
[2017-11-21 13:35] LABS: Platelet Count 85 k/uL (150-450)
[2017-11-21] MEDS ORDERED: NITROGLYCERIN SL TABS 0.4 MG TAB SUBLINGUAL PRN (14:16)
[2017-11-21] MEDS ORDERED: ACETAMINOPHEN TAB 325 MG TAB PO STA (14:28)
[2017-11-21] MEDS ORDERED: ONDANSETRON 4 MG/2 ML VIAL IVP STA (14:28)
[2017-11-21 15:33] VITALS: BMI 30.2
[2017-11-21 16:54] LABS: Glucose,Whole Blood 103 mg/dL (75-99)
[2017-11-21] MEDS: INSULIN ASPART 100 UNIT/ML 1 ML 10 ML VIAL SQ SCH ×2 (17:25→20:08)
[2017-11-21] MEDS: PANTOPRAZOLE 40 MG TABLET PO SCH (17:50)
[2017-11-21] MEDS: HYDROcodone/APAP 5-325MG 1 EACH TAB PO PRN ×2 (17:51→23:58)
[2017-11-21] MEDS: NITROGLYCERIN OINT 1 INCH/GM PACKET TOPICAL SCH (17:53)
[2017-11-21 19:59] LABS: Glucose,Whole Blood 137 mg/dL (75-99)
[2017-11-21 20:07] LABS: Creatine Kinase 320 U/L (55-170)
[2017-11-21] MEDS: CEFDINIR 300 MG CAP PO SCH (20:08)
[2017-11-21] MEDS: ATORVASTATIN 10 MG TAB PO SCH (20:08)
[2017-11-21 20:21] LABS: Creatine Kinase MB 1.2 ng/mL (0.0-2.4); Troponin I <0.012 ng/mL (0.000-0.034)
[2017-11-21] MEDS: IPRATROPIUM-ALBUTEROL 3 ML NEB INHALATION PRN (20:42)
[2017-11-21] MEDS: ONDANSETRON 4 MG/2 ML VIAL IVP PRN (20:55)
[2017-11-22 00:25] LABS: Cholesterol 177 mg/dL (<200); HDL Cholesterol 53 mg/dL (40-60); LDL Cholesterol,Calculated 95 mg/dL (0-99); Triglycerides 146 mg/dL (<150)
[2017-11-22] MEDS: NITROGLYCERIN OINT 1 INCH/GM PACKET TOPICAL SCH ×2 (00:34→04:55)
[2017-11-22 00:59] LABS: Creatine Kinase 416 U/L (55-170)
[2017-11-22 01:12] LABS: Creatine Kinase MB 1.5 ng/mL (0.0-2.4); Troponin I <0.012 ng/mL (0.000-0.034)
[2017-11-22] MEDS: HYDROcodone/APAP 5-325MG 1 EACH TAB PO PRN ×2 (04:59→11:57)
[2017-11-22] MEDS: ONDANSETRON 4 MG/2 ML VIAL IVP PRN (04:59)
[2017-11-22] MEDS: IPRATROPIUM-ALBUTEROL 3 ML NEB INHALATION PRN (07:35)
[2017-11-22 07:45] LABS: Glucose,Whole Blood 117 mg/dL (75-99)
[2017-11-22] MEDS ORDERED: DOBUTamine DRIP for NUC MED 500 MG in DEXTROSE/WATER 1 250ML.BAG IV ONE (08:35)
[2017-11-22] MEDS ORDERED: ASPIRIN 325 MG TAB PO SCH (09:00)
--- NOTE | 2017-11-22 09:22 | P.CRDCN ---
History of Present Illness History of present illness: Patient interviewed and examined. Atypical chest discomfort left pectoral area , recurrent Normal cardiac enzymes, normal ECG Dobutamine stress echo today Please see full dictation by nurse practitioner Past Medical History Past Medical History: Atrial Fibrillation, Chest Pain / Angina, COPD, CVA/TIA, Diabetes Mellitus, GERD/Reflux, GI Bleed, Hyperlipidemia, Hypertension, Pulmonary Embolus (PE) Additional Past Medical History / Comment(s): pt is rt side dominant.Upper and lower GI bleeds/anemia, esophageal varicies/diverticulosis, bilateral ankle edema at times, 2016 bacterial septicemia, TIA, NIDDM type II, 2011, cervical disc disease with neck pain goes into R arm, DDD low back goes into R leg, scoliosis, epilepsy when a child,tinnitus bl ears History of Any Multi-Drug Resistant Organisms: None Reported Past Surgical History: Appendectomy, Cholecystectomy Additional Past Surgical History / Comment(s): 07/20/17 EGD, 03/21/17 EGD/ colonoscopy, other colonoscopies. Past Anesthesia/Blood Transfusion Reactions: Previous Problems w/ Anesthesia Additional Past Anesthesia/Blood Transfusion Reaction / Comment(s): after appendix removed sob Past Psychological History: Anxiety, Depression Additional Psychological History / Comment(s): Pt lives in an apartment alone in [facility] . complex has front door ramp and has an elevator. no pets. Sometimes his sister stays with him and cleans his home. He uses a cane to ambulate at times. He drives but currently has no car. He gets to [facility] by [employer] bus. He has a nebulizer. Used to work in [employer]. Relates that he's not been a smoker. Denies recreational drug use. His left him many years ago he has adult children that he does not see very often. No experience. No travel history. No animal exposures Smoking Status: Never smoker Past Alcohol Use History: Occasional Additional Past Alcohol Use History / Comment(s): Pt stated when he was younger he drank heavy but had cut down to occ. pt stated he is trying to quit and has' nt drank in 4 weeks. Past Drug Use History: None Reported - Past Family History Mother Family Medical History: COPD, CVA/TIA, Dementia Additional Family Medical History / Comment(s): from a stroke Father Family Medical History: Pneumonia Additional Family Medical History / Comment(s): Father of pneumonia when he was close to 80 yrs old. Medications and Allergies Home Medications Medication Instructions Recorded Confirmed Type Docusate [Colace] 100 mg PO DAILY PRN #20 capsule 08/27/17 11/21/17 Rx Ferrous Sulfate [Feosol] 325 mg PO DAILY #30 tab 08/27/17 11/21/17 Rx metFORMIN HCL 1,000 mg PO BID 09/23/17 11/21/17 History Magnesium Oxide 400 mg PO DAILY #30 tablet 09/24/17 11/21/17 Rx Aspirin 81 mg PO DAILY #30 chew 10/10/17 11/21/17 Rx Atorvastatin Calcium [Lipitor] 10 mg PO HS #30 tab 10/10/17 11/21/17 Rx Pantoprazole [Protonix] 40 mg PO AC-BID #60 tablet. 10/25/17 11/21/17 Rx Folic Acid 1 mg PO DAILY 11/09/17 11/21/17 History Multivitamins, Thera [Multivitamin 1 tab PO DAILY 11/09/17 11/21/17 History (formulary)] Thiamine [Vitamin B-1] 100 mg PO DAILY 11/09/17 11/21/17 History Cefuroxime Axetil [Ceftin] 500 mg PO BID #20 tab 11/11/17 11/21/17 Rx Nadolol [Corgard] 20 mg PO DAILY #30 tab 11/11/17 11/21/17 Rx Allergies Allergy/AdvReac Type Severity Reaction Status Date / Time adhesive tape Allergy Rash/Hives Verified 11/21/17 12:51 egg AdvReac Nausea & Verified 11/21/17 12:51 Vomiting lisinopril AdvReac EYES Verified 11/21/17 12:51 BURN&ITCH/WEAKNESS tomato AdvReac Nausea & Verified 11/21/17 12:51 Vomiting & Diarrhea Physical Exam Vitals: Vital Signs Temp Pulse Pulse Resp BP BP Pulse Ox 11/22/17 07:45 98.3 F 80 18 136/79 97 11/22/17 07:44 88 11/22/17 07:35 88 11/22/17 04:00 97.7 F 88 18 138/82 98 11/22/17 03:43 16 11/22/17 00:00 97.9 F 81 16 161/92 98 07/08/18 20:54 68 11/21/17 20:42 70 98 11/21/17 20:00 97.6 F 84 16 170/88 97 11/21/17 15:02 98.0 F 86 18 151/103 93 L 11/21/17 14:48 98.2 F 92 18 146/77 98 11/21/17 14:26 96 18 158/92 96 11/21/17 13:11 90 18 157/92 96 11/21/17 12:07 99.5 F 99 18 154/94 97 Intake and Output 11/21/17 11/22/17 11/22/17 22:59 06:59 14:59 Other: # Voids 1 1 Weight 82.3 kg Results 11/21/17 12:30 11/21/17 12:30 Cardiac Enzymes 11/21/17 11/21/17 11/21/17 Range/Units 12:30 12:30 18:59 AST 86 H (17-59) U/L CK-MB (CK-2) 1.0 1.2 (0.0-2.4) ng/mL Troponin I <0.012 <0.012 (0.000-0.034) ng/mL 11/22/17 Range/Units 00:30 AST (17-59) U/L CK-MB (CK-2) 1.5 (0.0-2.4) ng/mL Troponin I <0.012 (0.000-0.034) ng/mL Coagulation 11/21/17 Range/Units 12:30 PT 11.8 (9.0-12.0) sec APTT 28.1 (22.0-30.0) sec Lipids 11/21/17 Range/Units 12:30 Triglycerides 146 (<150) mg/dL Cholesterol 177 (<200) mg/dL HDL Cholesterol 53 (40-60) mg/dL CBC 11/21/17 Range/Units 12:30 WBC 3.1 L (3.8-10.6) k/uL RBC 3.14 L (4.30-5.90) m/uL Hgb 8.2 L (13.0-17.5) gm/dL Hct 27.1 L (39.0-53.0) % Plt Count 85 L D (150-450) k/uL Comprehensive Metabolic Panel 11/21/17 Range/Units 12:30 Sodium 144 (137-145) mmol/L Potassium 4.1 (3.5-5.1) mmol/L Chloride 106 (98-107) mmol/L Carbon Dioxide 25 (22-30) mmol/L BUN 12 (9-20) mg/dL Creatinine 0.67 (0.66-1.25) mg/dL Glucose 115 H (74-99) mg/dL Calcium 8.3 L (8.4-10.2) mg/dL AST 86 H (17-59) U/L ALT 41 (21-72) U/L Alkaline Phosphatase 97 (38-126) U/L Total Protein 6.9 (6.3-8.2) g/dL Albumin 3.5 (3.5-5.0) g/dL Current Medications Generic Name Dose Route Start Last Admin Trade Name Freq PRN Reason Stop Dose Admin Hydrocodone Bitart/Acetaminophen 1 each 11/21/17 17:06 11/22/17 04:59 [place] 5-325 PO 1 each Q6HR PRN Administration Pain Albuterol/Ipratropium 3 ml 11/21/17 19:50 11/22/17 07:35 Duoneb 0.5 Mg-3 Mg/3 Ml Soln INHALATION 3 ml RT-Q2H PRN Administration Shortness Of Breath Or Wheezing Aspirin 325 mg 11/22/17 09:00 Aspirin PO DAILY [facility] Atorvastatin Calcium 10 mg 11/21/17 21:00 11/21/17 20:08 Lipitor PO 10 mg HS TANYA Administration Cefdinir 300 mg 11/21/17 21:00 11/21/17 20:08 Omnicef PO 300 mg BID [facility] Administration Docusate Sodium 100 mg 11/21/17 17:04 Colace PO DAILY PRN Constipation Ferrous Sulfate 325 mg 11/22/17 09:00 Feosol PO DAILY [facility] Folic Acid 1 mg 11/22/17 09:00 Folic Acid PO DAILY [facility] Dobutamine HCl/Dextrose 500 mg 250 mls @ 24.69 mls/hr 11/22/17 08:35 / IV Solution IV 11/22/17 18:42 .Q10H8M ONE Protocol 10 MCG/KG/MIN Insulin Aspart 0 unit 11/21/17 17:30 11/21/17 20:08 Novolog SQ Not Given ACHS [facility] Protocol Magnesium Oxide 400 mg 11/22/17 09:00 Mag-Ox PO DAILY [facility] Multivitamins 1 each 11/22/17 09:00 Theragran PO DAILY [facility] Nadolol 20 mg 11/22/17 09:00 Corgard PO DAILY [facility] Nitroglycerin 1 inch 11/21/17 18:00 11/22/17 04:55 Nitro-Bid Oint TOPICAL Not Given Q6HR [facility] Nitroglycerin 0.4 mg 11/21/17 14:16 Nitrostat SUBLINGUAL Q5M PRN Chest Pain Ondansetron HCl 4 mg 11/21/17 20:10 11/22/17 04:59 Zofran IVP 4 mg Q6HR PRN Administration Nausea And Vomiting Pantoprazole Sodium 40 mg 11/21/17 17:30 11/21/17 17:50 Protonix PO 40 mg AC-BID TANYA Administration Thiamine HCl 100 mg 11/22/17 09:00 Vitamin B-1 PO DAILY [facility] Intake and Output 11/21/17 11/22/17 11/22/17 22:59 06:59 14:59 Other: # Voids 1 1 Weight 82.3 kg 11/21/17 12:30 11/21/17 12:30
[2017-11-22] MEDS: INSULIN ASPART 100 UNIT/ML 1 ML 10 ML VIAL SQ SCH ×4 (09:37→21:45)
[2017-11-22] MEDS ORDERED: LORazepam 2 MG/ML INJ IV STA (10:55)
--- NOTE | 2017-11-22 11:16 | P.CRDCN ---
History of Present Illness History of present illness: Mr. Aguilar is a pleasant 62-year-old male past medical history significant for dyslipidemia, hypertension, diabetes mellitus, esophageal varices, chronic alcohol abuse, alcoholic cirrhosis with portal hypertension and history of GI bleeding. He denies history of coronary artery disease. We have been asked to see him in consultation for chest pain. He complains of a sharp pain in the left precordial region. He has been coughing intermittently over the previous 3 days and has noticed increasing shortness of breath. The pain started yesterday and was worse when he would cough or take a deep breath. He denies associated dizziness, nausea, vomiting, palpitations or diaphoresis. He denies pain in the arm, neck, back or jaw. He continues to feel intermittent symptoms of sharp chest pain when he coughs. He was recently admitted to the hospital and diagnosed with pneumonia. He was discharged home on November 12 with antibiotics. He was seen in consultation at that time by Dr. Hernandez for symptoms of chest pain as well. He acute coronary event was ruled out at that time. He has a follow-up appointment scheduled with Dr. Hernandez November 24 at 2:15 PM. He was also noted to the hospital in the beginning of October with bleeding esophageal varices and underwent ligation per Dr. Sheehan. He states he has not had an alcoholic beverage since. EKG reveals sinus mechanism with no acute ST or T wave abnormalities noted. Chest x-ray reveals partial clearing of left lower lobe airspace disease. Laboratory data reviewed, hemoglobin 8.2, platelets 85, INR 1.2, sodium 144, potassium 4.1, creatinine 0.67, cardiac enzymes negative 3, LDL 95, HDL 53. Current cardiac medications include aspirin 81 mg daily, atorvastatin 10 mg daily, nadolol 20 mg daily. He also takes metformin, Protonix and ferrous sulfate. Most recent echocardiogram September 2017 reveals preserved left ventricular systolic function with ejection fraction 60-65%, moderately dilated left atrium, mild MR and trace TR. Review of Systems At the time of my exam: CONSTITUTIONAL: Denies fever. Denies chills. EYES: Denies blurred vision. Denies vision changes. Denies eye pain. EARS, NOSE, MOUTH & THROAT: Denies headache. Denies sore throat. Denies ear pain. CARDIOVASCULAR: Complains of pleuritic chest pain with shortness of breath. Denies orthopnea. Denies PND. Denies palpitations. RESPIRATORY: Complains of cough. GASTROINTESTINAL: Denies abdominal pain. Denies diarrhea. Denies constipation. Denies nausea. Denies vomiting. MUSCULOSKELETAL: Denies myalgias. INTEGUMENTARY: Denies pruitis. Denies rash. NEUROLOGIC: Denies numbness. Denies tingling. Denies weakness. PSYCHIATRIC: Denies anxiety. Denies depression. ENDOCRINE: Denies fatigue. Denies weight change. Denies polydipsia. Denies polyurina. GENITOURINARY: Denies burning, hematuria or urgency with micturation. HEMATOLOGIC: Denies history of anemia. Denies bleeding. Past Medical History Past Medical History: Atrial Fibrillation, Chest Pain / Angina, COPD, CVA/TIA, Diabetes Mellitus, GERD/Reflux, GI Bleed, Hyperlipidemia, Hypertension, Pulmonary Embolus (PE) Additional Past Medical History / Comment(s): pt is rt side dominant.Upper and lower GI bleeds/anemia, esophageal varicies/diverticulosis, bilateral ankle edema at times, 2016 bacterial septicemia, TIA, NIDDM type II, 2011, cervical disc disease with neck pain goes into R arm, DDD low back goes into R leg, scoliosis, epilepsy when a child,tinnitus bl ears History of Any Multi-Drug Resistant Organisms: None Reported Past Surgical History: Appendectomy, Cholecystectomy Additional Past Surgical History / Comment(s): 07/20/17 EGD, 03/21/17 EGD/ colonoscopy, other colonoscopies. Past Anesthesia/Blood Transfusion Reactions: Previous Problems w/ Anesthesia Additional Past Anesthesia/Blood Transfusion Reaction / Comment(s): after appendix removed sob Past Psychological History: Anxiety, Depression Additional Psychological History / Comment(s): Pt lives in an apartment alone in [facility] . complex has front door ramp and has an elevator. no pets. Sometimes his sister stays with him and cleans his home. He uses a cane to ambulate at times. He drives but currently has no car. He gets to [employer] by [employer]. He has a nebulizer. Used to work in [employer]. Relates that he's not been a smoker. Denies recreational drug use. His left him many years ago he has adult children that he does not see very often. No experience. No travel history. No animal exposures Smoking Status: Never smoker Past Alcohol Use History: Occasional Additional Past Alcohol Use History / Comment(s): Pt stated when he was younger he drank heavy but had cut down to occ. pt stated he is trying to quit and has' nt drank in 4 weeks. Past Drug Use History: None Reported - Past Family History Mother Family Medical History: COPD, CVA/TIA, Dementia Additional Family Medical History / Comment(s): from a stroke Father Family Medical History: Pneumonia Additional Family Medical History / Comment(s): Father of pneumonia when he was close to 80 yrs old. Medications and Allergies Home Medications Medication Instructions Recorded Confirmed Type Docusate [Colace] 100 mg PO DAILY PRN #20 capsule 08/27/17 11/21/17 Rx Ferrous Sulfate [Feosol] 325 mg PO DAILY #30 tab 08/27/17 11/21/17 Rx metFORMIN HCL 1,000 mg PO BID 09/23/17 11/21/17 History Magnesium Oxide 400 mg PO DAILY #30 tablet 09/24/17 11/21/17 Rx Aspirin 81 mg PO DAILY #30 chew 10/10/17 11/21/17 Rx Atorvastatin Calcium [Lipitor] 10 mg PO HS #30 tab 10/10/17 11/21/17 Rx Pantoprazole [Protonix] 40 mg PO AC-BID #60 tablet. 10/25/17 11/21/17 Rx Folic Acid 1 mg PO DAILY 11/09/17 11/21/17 History Multivitamins, Thera [Multivitamin 1 tab PO DAILY 11/09/17 11/21/17 History (formulary)] Thiamine [Vitamin B-1] 100 mg PO DAILY 11/09/17 11/21/17 History Cefuroxime Axetil [Ceftin] 500 mg PO BID #20 tab 11/11/17 11/21/17 Rx Nadolol [Corgard] 20 mg PO DAILY #30 tab 11/11/17 11/21/17 Rx Allergies Allergy/AdvReac Type Severity Reaction Status Date / Time adhesive tape Allergy Rash/Hives Verified 11/21/17 12:51 egg AdvReac Nausea & Verified 11/21/17 12:51 Vomiting lisinopril AdvReac EYES Verified 11/21/17 12:51 BURN&ITCH/WEAKNESS tomato AdvReac Nausea & Verified 11/21/17 12:51 Vomiting & Diarrhea Physical Exam Vitals: Vital Signs Temp Pulse Pulse Resp BP BP Pulse Ox 11/22/17 07:44 88 11/22/17 07:35 88 11/22/17 04:00 97.7 F 88 18 138/82 98 11/22/17 03:43 16 11/22/17 00:00 97.9 F 81 16 161/92 98 11/21/17 20:54 68 11/21/17 20:42 70 98 11/21/17 20:00 97.6 F 84 16 170/88 97 11/21/17 15:02 98.0 F 86 18 151/103 93 L 11/21/17 14:48 98.2 F 92 18 146/77 98 11/21/17 14:26 96 18 158/92 96 11/21/17 13:11 90 18 157/92 96 11/21/17 12:07 99.5 F 99 18 154/94 97 Intake and Output 11/21/17 11/22/17 11/22/17 22:59 06:59 14:59 Other: # Voids 1 1 Weight 82.3 kg Blood pressure 136/79 heart rate 88 afebrile maintaining oxygen saturation on room air GENERAL: This is a 62-year-old male in no apparent distress at the time of my examination. HEENT: Head is atraumatic, normocephalic. Pupils are equal, round. Sclerae anicteric. Conjunctivae are clear. Mucous membranes of the mouth are moist. Neck is supple. There is no jugular venous distention. No carotid bruit is heard. LUNGS: Clear to auscultation no wheezes, rales or rhonchi. No chest wall tenderness is noted on palpation or with deep breathing. HEART: Regular rate and rhythm without murmurs, rubs or gallops. S1 and S2 heard. ABDOMEN: Soft, nontender. Bowel sounds are heard. No organomegaly noted. EXTREMITIES: No evidence of peripheral edema and no calf tenderness noted. VASCULAR: Radial and dorsalis pedis pulses palpated, no evidence of clubbing. NEUROLOGIC: Patient is awake, alert and oriented x3. Results 11/21/17 12:30 11/21/17 12:30 Cardiac Enzymes 11/21/17 11/21/17 11/21/17 Range/Units 12:30 12:30 18:59 AST 86 H (17-59) U/L CK-MB (CK-2) 1.0 1.2 (0.0-2.4) ng/mL Troponin I <0.012 <0.012 (0.000-0.034) ng/mL 11/22/17 Range/Units 00:30 AST (17-59) U/L CK-MB (CK-2) 1.5 (0.0-2.4) ng/mL Troponin I <0.012 (0.000-0.034) ng/mL Coagulation 11/21/17 Range/Units 12:30 PT 11.8 (9.0-12.0) sec APTT 28.1 (22.0-30.0) sec Lipids 11/21/17 Range/Units 12:30 Triglycerides 146 (<150) mg/dL Cholesterol 177 (<200) mg/dL HDL Cholesterol 53 (40-60) mg/dL CBC 11/21/17 Range/Units 12:30 WBC 3.1 L (3.8-10.6) k/uL RBC 3.14 L (4.30-5.90) m/uL Hgb 8.2 L (13.0-17.5) gm/dL Hct 27.1 L (39.0-53.0) % Plt Count 85 L D (150-450) k/uL Comprehensive Metabolic Panel 11/21/17 Range/Units 12:30 Sodium 144 (137-145) mmol/L Potassium 4.1 (3.5-5.1) mmol/L Chloride 106 (98-107) mmol/L Carbon Dioxide 25 (22-30) mmol/L BUN 12 (9-20) mg/dL Creatinine 0.67 (0.66-1.25) mg/dL Glucose 115 H (74-99) mg/dL Calcium 8.3 L (8.4-10.2) mg/dL AST 86 H (17-59) U/L ALT 41 (21-72) U/L Alkaline Phosphatase 97 (38-126) U/L Total Protein 6.9 (6.3-8.2) g/dL Albumin 3.5 (3.5-5.0) g/dL Current Medications Generic Name Dose Route Start Last Admin Trade Name Freq PRN Reason Stop Dose Admin Hydrocodone Bitart/Acetaminophen 1 each 11/21/17 17:06 11/22/17 04:59 [place] 5-325 PO 1 each Q6HR PRN Administration Pain Albuterol/Ipratropium 3 ml 11/21/17 19:50 11/22/17 07:35 Duoneb 0.5 Mg-3 Mg/3 Ml Soln INHALATION 3 ml RT-Q2H PRN Administration Shortness Of Breath Or Wheezing Aspirin 325 mg 11/22/17 09:00 Aspirin PO DAILY [facility] Atorvastatin Calcium 10 mg 11/21/17 21:00 11/21/17 20:08 Lipitor PO 10 mg HS [facility] Administration Cefdinir 300 mg 11/21/17 21:00 11/21/17 20:08 Omnicef PO 300 mg BID [facility] Administration Docusate Sodium 100 mg 11/21/17 17:04 Colace PO DAILY PRN Constipation Ferrous Sulfate 325 mg 11/22/17 09:00 Feosol PO DAILY [facility] Folic Acid 1 mg 11/22/17 09:00 Folic Acid PO DAILY [facility] Insulin Aspart 0 unit 11/21/17 17:30 11/21/17 20:08 Novolog SQ Not Given ACHS [facility] Protocol Magnesium Oxide 400 mg 11/22/17 09:00 Mag-Ox PO DAILY [facility] Multivitamins 1 each 11/22/17 09:00 Theragran PO DAILY [facility] Nadolol 20 mg 11/22/17 09:00 Corgard PO DAILY [facility] Nitroglycerin 1 inch 11/21/17 18:00 11/22/17 04:55 Nitro-Bid Oint TOPICAL Not Given Q6HR [facility] Nitroglycerin 0.4 mg 11/21/17 14:16 Nitrostat SUBLINGUAL Q5M PRN Chest Pain Ondansetron HCl 4 mg 11/21/17 20:10 11/22/17 04:59 Zofran IVP 4 mg Q6HR PRN Administration Nausea And Vomiting Pantoprazole Sodium 40 mg 11/21/17 17:30 11/21/17 17:50 Protonix PO 40 mg AC-BID [facility] Administration Thiamine HCl 100 mg 11/22/17 09:00 Vitamin B-1 PO DAILY [facility] Intake and Output 11/21/17 11/22/17 11/22/17 22:59 06:59 14:59 Other: # Voids 1 1 Weight 82.3 kg 11/21/17 12:30 11/21/17 12:30 Assessment and Plan Assessment: ASSESSMENT Chest pain, atypical. An acute coronary event has been ruled out with no EKG evidence of ischemia and negative cardiac enzymes. Hypertension COPD Dyslipidemia Diabetes mellitus History of esophageal varices with recent ligation Chronic alcohol abuse with alcoholic cirrhosis with portal hypertension Anemia, chronic Thrombocytopenia PLAN An acute coronary event has been ruled out with no EKG evidence of ischemia and negative cardiac enzymes. Check magnesium level. Aspirin dose 81 mg. Perform dobutamine stress echocardiogram to assess for stress induced ischemic changes. If stress test is negative he is stable from a cardiac perspective, follow up with Dr. LORRIE Hernandez at already scheduled appointment 11/24. Thank you kindly for this consultation. Nurse Practitioner note has been reviewed, I agree with a documented findings and plan of care. Patient was seen and examined. Time with Patient: Greater than 30
--- NOTE | 2017-11-22 11:20 | P.HPIM ---
History of Present Illness H&P Date: 11/22/17 Chief Complaint: Chest pain This is a 62-year-old male, patient of [facility]. He has a known past medical history of atrial fibrillation and not on anticoagulation due to previous GI bleed, COPD, diabetes mellitus type 2, hyperlipidemia, hypertension , PE, esophageal varices with bleeding requiring EGD and ligation in October 2017, TIA. Patient was recently hospitalized in November 11 with chest pain due to pneumonia. Patient reports that he had one more day of antibiotics left. Reports he is still having some cough and having some chills. He also has been complaining of left-sided chest pain and that worsens with cough. EKG normal sinus rhythm. Troponins were negative 3 sets. Chest x-ray showed partial clearing of the left lower lobe airspace disease. Patient's last stress test he reports as 2 years ago and was normal. Patient was seen by cardiology service and they have scheduled him for a stress echo today. Apparently patient had a seizure when he was downstairs to undergo the stress dobutamine echo. Cardiology nurse practitioner has notified me. That she had witnessed a seizure. Reports that the seizure lasted for about 1 minute. And he is currently in a postictal state. He also had a decrease in oxygen saturation. Please refer to cardiology nurse practitioners for report regarding the seizure. Patient will be given 1 dose of IV Ativan 1 mg. Neurology will be consulted. His chart did report epilepsy as a child. Patient does have a history of alcohol dependency. But he reports no alcohol use for 4 weeks now. Patient had denied any nausea vomiting, bowel movement changes urinary symptoms. And denied any shortness of breath. Review of Systems Please refer to HPI otherwise unremarkable Past Medical History Past Medical History: Atrial Fibrillation, Chest Pain / Angina, COPD, CVA/TIA, Diabetes Mellitus, GERD/Reflux, GI Bleed, Hyperlipidemia, Hypertension, Pulmonary Embolus (PE) Additional Past Medical History / Comment(s): pt is rt side dominant.Upper and lower GI bleeds/anemia, esophageal varicies/diverticulosis, bilateral ankle edema at times, 2016 bacterial septicemia, TIA, NIDDM type II, 2011, cervical disc disease with neck pain goes into R arm, DDD low back goes into R leg, scoliosis, epilepsy when a child,tinnitus bl ears History of Any Multi-Drug Resistant Organisms: None Reported Past Surgical History: Appendectomy, Cholecystectomy Additional Past Surgical History / Comment(s): 07/20/17 EGD, 03/21/17 EGD/ colonoscopy, other colonoscopies. Past Anesthesia/Blood Transfusion Reactions: Previous Problems w/ Anesthesia Additional Past Anesthesia/Blood Transfusion Reaction / Comment(s): after appendix removed sob Past Psychological History: Anxiety, Depression Additional Psychological History / Comment(s): Pt lives in an apartment alone in the [facility] . complex has front door ramp and has an elevator. no pets. Sometimes his sister stays with him and cleans his home. He uses a cane to ambulate at times. He drives but currently has no car. He gets to [employer] by [employer]. He has a nebulizer. Used to work in [employer]. Relates that he's not been a smoker. Denies recreational drug use. His left him many years ago he has adult children that he does not see very often. No experience. No travel history. No animal exposures Smoking Status: Never smoker Past Alcohol Use History: Occasional Additional Past Alcohol Use History / Comment(s): Pt stated when he was younger he drank heavy but had cut down to occ. pt stated he is trying to quit and has' nt drank in 4 weeks. Past Drug Use History: None Reported - Past Family History Mother Family Medical History: COPD, CVA/TIA, Dementia Additional Family Medical History / Comment(s): from a stroke Father Family Medical History: Pneumonia Additional Family Medical History / Comment(s): Father of pneumonia when he was close to 80 yrs old. Medications and Allergies Home Medications Medication Instructions Recorded Confirmed Type Docusate [Colace] 100 mg PO DAILY PRN #20 capsule 08/27/17 11/21/17 Rx Ferrous Sulfate [Feosol] 325 mg PO DAILY #30 tab 08/27/17 11/21/17 Rx metFORMIN HCL 1,000 mg PO BID 09/23/17 11/21/17 History Magnesium Oxide 400 mg PO DAILY #30 tablet 09/24/17 11/21/17 Rx Aspirin 81 mg PO DAILY #30 chew 10/10/17 11/21/17 Rx Atorvastatin Calcium [Lipitor] 10 mg PO HS #30 tab 10/10/17 11/21/17 Rx Pantoprazole [Protonix] 40 mg PO AC-BID #60 tablet. 10/25/17 11/21/17 Rx Folic Acid 1 mg PO DAILY 11/09/17 11/21/17 History Multivitamins, Thera [Multivitamin 1 tab PO DAILY 11/09/17 11/21/17 History (formulary)] Thiamine [Vitamin B-1] 100 mg PO DAILY 11/09/17 11/21/17 History Cefuroxime Axetil [Ceftin] 500 mg PO BID #20 tab 11/11/17 11/21/17 Rx Nadolol [Corgard] 20 mg PO DAILY #30 tab 11/11/17 11/21/17 Rx Allergies Allergy/AdvReac Type Severity Reaction Status Date / Time adhesive tape Allergy Rash/Hives Verified 11/21/17 12:51 egg AdvReac Nausea & Verified 11/21/17 12:51 Vomiting lisinopril AdvReac EYES Verified 11/21/17 12:51 BURN&ITCH/WEAKNESS tomato AdvReac Nausea & Verified 11/21/17 12:51 Vomiting & Diarrhea Physical Exam Vitals: Vital Signs Temp Pulse Pulse Resp BP BP Pulse Ox 11/22/17 07:45 98.3 F 80 18 136/79 97 11/22/17 07:44 88 11/22/17 07:35 88 11/22/17 04:00 97.7 F 88 18 138/82 98 11/22/17 03:43 16 11/22/17 00:00 97.9 F 81 16 161/92 98 11/21/17 20:54 68 11/21/17 20:42 70 98 11/21/17 20:00 97.6 F 84 16 170/88 97 11/21/17 15:02 98.0 F 86 18 151/103 93 L 11/21/17 14:48 98.2 F 92 18 146/77 98 11/21/17 14:26 96 18 158/92 96 11/21/17 13:11 90 18 157/92 96 11/21/17 12:07 99.5 F 99 18 154/94 97 Intake and Output 11/21/17 11/22/17 11/22/17 22:59 06:59 14:59 Other: # Voids 1 1 Weight 82.3 kg Head normocephalic Neck supple Lungs clear to auscultation bilaterally no wheezing or crackles Heart regular rate and rhythm S1-S2, no rub or gallop Abdomen is soft nontender nondistended positive bowel sounds no hepatosplenomegaly Extremities no edema Neuro alert and orientated to 3 Results CBC & Chem 7: 11/21/17 12:30 11/21/17 12:30 Labs: Abnormal Lab Results - Last 24 Hours (Table) 11/21/17 11/21/17 11/21/17 Range/Units 12:30 12:30 12:30 WBC 3.1 L (3.8-10.6) k/uL RBC 3.14 L (4.30-5.90) m/uL Hgb 8.2 L (13.0-17.5) gm/dL Hct 27.1 L (39.0-53.0) % MCHC 30.4 L (31.0-37.0) g/dL RDW 18.2 H (11.5-15.5) % Plt Count 85 L D (150-450) k/uL INR (<1.2) Glucose 115 H (74-99) mg/dL POC Glucose (mg/dL) (75-99) mg/dL Calcium 8.3 L (8.4-10.2) mg/dL AST 86 H (17-59) U/L Total Creatine Kinase 255 H (55-170) U/L 11/21/17 11/21/17 11/21/17 Range/Units 12:30 16:52 18:59 WBC (3.8-10.6) k/uL RBC (4.30-5.90) m/uL Hgb (13.0-17.5) gm/dL Hct (39.0-53.0) % MCHC (31.0-37.0) g/dL RDW (11.5-15.5) % Plt Count (150-450) k/uL INR 1.2 H (<1.2) Glucose (74-99) mg/dL POC Glucose (mg/dL) 103 H (75-99) mg/dL Calcium (8.4-10.2) mg/dL AST (17-59) U/L Total Creatine Kinase 320 H (55-170) U/L 11/21/17 11/22/17 11/22/17 Range/Units 19:57 00:30 07:42 WBC (3.8-10.6) k/uL RBC (4.30-5.90) m/uL Hgb (13.0-17.5) gm/dL Hct (39.0-53.0) % MCHC (31.0-37.0) g/dL RDW (11.5-15.5) % Plt Count (150-450) k/uL INR (<1.2) Glucose (74-99) mg/dL POC Glucose (mg/dL) 137 H 117 H (75-99) mg/dL Calcium (8.4-10.2) mg/dL AST (17-59) U/L Total Creatine Kinase 416 H (55-170) U/L Thrombosis Risk Factor Assmnt - Choose All That Apply Any of the Below Risk Factors Present?: Yes Each Factor Represents 1 point: Obesity (BMI >25) Other Risk Factors: Yes Each Risk Factor Represents 2 Points: Age 61-74 years Thrombosis Risk Factor Assessment Total Risk Factor Score: 3 Thrombosis Risk Factor Assessment Level: Moderate Risk Assessment and Plan Assessment: 1. Chest pain: Troponins negative 3 sets. EKG normal sinus rhythm. Patient was scheduled for a dobutamine stress echo 2. New witnessed seizure prior to patient having dobutamine stress echo. Neurology will be consulted. 1 mg of Ativan ordered. Patient does have a history of epilepsy as a child 3. Recent community-acquired pneumonia chest x-ray showing improvement. Continue with Omnicef 4. History of alcohol dependency. Patient reports it's been about 4 weeks since his last alcoholic beverage. Continue thiamine, multivitamin and folic acid 5. History of paroxysmal atrial fibrillation: Not on anticoagulation due to GI bleed 6. History of pulmonary embolism 7. Diabetes mellitus type 2 continue sliding scale coverage 8. Hyperlipidemia continue statin 9. History of esophageal varices requiring EGD and ligation on 10/21/2017 10. Iron deficiency anemia: Continue iron supplement. Check iron studies. Hemoglobin 8.2 11. History of TIA 12. Essential hypertension 13. History of COPD stable no evidence of exacerbation GI prophylaxis Protonix and DVT prophylaxis SCDs Time with Patient: Greater than 30 (Greater than 60% of the total time spent in counseling and coordination of care.I performed an examination of the patient and discussed their management with the [facility] [place] Program Technician. I have reviewed the [facility] [place] Program Technician's notes and agree with the documented findings and plan of care)
[2017-11-22 11:29] LABS: Glucose,Whole Blood 173 mg/dL (75-99)
[2017-11-22 12:07] LABS: Anisocytosis Slight; Basophils % (A) 0 %; Eosinophils # (A) 0.1 k/uL (0-0.7); Eosinophils % (A) 2 %; HCT 31.2 % (39.0-53.0); HGB 9.4 gm/dL (13.0-17.5); Hypochromasia Marked; Lymphocytes % (A) 21 %; MCH 25.7 pg (25.0-35.0); MCHC 30.3 g/dL (31.0-37.0); MCV 84.9 fL (80.0-100.0); Mean Platelet Volume 8.8; Monocytes # (A) 0.3 k/uL (0-1.0); Monocytes % (A) 6 %; Neutrophils # (A) 3.1 k/uL (1.3-7.7); Neutrophils % (A) 69 %; Platelet Count 100 k/uL (150-450); RBC 3.67 m/uL (4.30-5.90); RDW 17.6 % (11.5-15.5); WBC 4.5 k/uL (3.8-10.6)
--- NOTE | 2017-11-22 14:34 | P.PN ---
Progress Note - Text Pt was brought down to the stress lab for his dobutamine stress echocardiogram. He was walking from the wheelchair to the stretcher, upon sitting down he started having generalized tonic clonic activity. Seizure activity lasted approximately 45-60 seconds. EKG leads, oxygen, pulse oximeter were applied. Pulse ox was reading 46% initially, chin lift jaw thrust maneuver applied and oxygen saturation started to rise up to 97% on 6 liters nasal cannula. EKG revealed sinus tachycardia heart rate 111, blood pressure immediately after seizure activity 176/101. After seizure activity he was having snorous respirations and was post-ictal not responding appropriately. A-team was called for transport to inpatient unit for closer monitoring. Debbie THORNTON notified of change in patient status. Dobutamine stress test will be cancelled pending further evaluation.
[2017-11-22] MEDS: PANTOPRAZOLE 40 MG TABLET PO SCH ×2 (15:00→17:51)
[2017-11-22] MEDS: THIAMINE 100 MG TAB PO SCH (15:00)
[2017-11-22] MEDS: FERROUS SULFATE 325 MG TAB PO SCH (15:00)
[2017-11-22] MEDS: CEFDINIR 300 MG CAP PO SCH ×2 (15:00→21:45)
[2017-11-22] MEDS: MULTIVITAMINS, THERA 1 EACH TAB PO SCH (15:01)
[2017-11-22] MEDS: NADOLOL 20 MG TAB PO SCH (15:01)
[2017-11-22] MEDS: FOLIC ACID 1 MG TAB PO SCH (15:01)
[2017-11-22] MEDS: MAGNESIUM OXIDE 400 MG TAB PO SCH (15:01)
[2017-11-22] MEDS: HYDROmorphone 0.5 MG/0.5 ML SYRINGE IVP PRN ×2 (15:02→19:48)
--- NOTE | 2017-11-22 15:24 | P.CNPUL ---
History of Present Illness Consult date: 11/22/17 Reason for consult: chest pain History of present illness: Mr. Aguilar was hospitalized yesterday because of chest pain. His known to have previous history of alcoholism and he states that he hasn't drank for approximately 4 weeks. He also has history of childhood epilepsy that he outgrew and he does not take any antiepileptic medications. The patient also has history of hypertension, hyperlipidemia, CVA without any major residual deficits, atrial fibrillation, and pulmonary embolism. He also has history of hypertension, hyperlipidemia, diabetes mellitus and chronic alcoholic liver disease with alcoholic cirrhosis and portal hypertension and previous history of GI bleed secondary to esophageal varices. He denies having any previous history of heart attacks or coronary artery disease. He has had over previous dobutamine stress echo that came back negative for any ischemic heart disease. The patient comes in with chest pain that's been constant over the past 3 days. He has also noted some some increased shortness of breath. EKG was within normal. 3 sets of cardiac and those were negative. This afternoon while trying to undergo a stress test, the patient was taken to the stress test lab and while he is stay and even prior to initiating the stress test the patient had a tonic-clonic generalized seizure activity that lasted a few minutes. He was given Ativan during the process. By the time the A team arrived to the scene the patient was already awake and not seizing. He did not have any post ictal changes following the seizure. Currently is wide awake and following commands and answering questions. Denies having any headache and there is no focal neurological deficits. He is still complaining of the same pain across his chest. No hemoptysis. No pleurisy. He remains hemodynamically stable. Review of Systems CONSTITUTIONAL: Denies fever. Denies chills. EYES: Denies blurred vision. Denies vision changes. Denies eye pain. EARS, NOSE, MOUTH & THROAT: Denies headache. Denies sore throat. Denies ear pain. CARDIOVASCULAR: Complains of pleuritic chest pain with shortness of breath. Denies orthopnea. Denies PND. Denies palpitations. The chest pain is constant although there is some variation with breathing. RESPIRATORY: Complains of cough. GASTROINTESTINAL: Denies abdominal pain. Denies diarrhea. Denies constipation. Denies nausea. Denies vomiting. MUSCULOSKELETAL: Denies myalgias. INTEGUMENTARY: Denies pruitis. Denies rash. NEUROLOGIC: Denies numbness. Denies tingling. Denies weakness. The patient has a single episode of seizure activity that was treated with a dose of Ativan and currently has no postictal paralysis or altered mentation. PSYCHIATRIC: Denies anxiety. Denies depression. ENDOCRINE: Denies fatigue. Denies weight change. Denies polydipsia. Denies polyurina. GENITOURINARY: Denies burning, hematuria or urgency with micturation. HEMATOLOGIC: Denies history of anemia. Denies bleeding. Past Medical History Past Medical History: Atrial Fibrillation, Chest Pain / Angina, COPD, CVA/TIA, Diabetes Mellitus, GERD/Reflux, GI Bleed, Hyperlipidemia, Hypertension, Pulmonary Embolus (PE) Additional Past Medical History / Comment(s): Alcoholism, chronic alcoholic cirrhosis with portal hypertension and previous history of GI bleeding, esophageal varices, diabetes mellitus, hypertension, hyperlipidemia, previous history of childhood seizure which he outgrew not taking any antiepileptic medication, history of atrial fibrillation, history of pulmonary embolism, hypertension, hyperlipidemia, previous history of GI bleed, previous history of CVA without any residual deficits. He also has history of diverticulosis, chronic lower extremity ankle edema, previous history of septicemia, cervical disc disease with chronic back pain, degenerative arthritis involving the lower back, tinnitus History of Any Multi-Drug Resistant Organisms: None Reported Past Surgical History: Appendectomy, Cholecystectomy Additional Past Surgical History / Comment(s): 07/20/17 EGD, 03/21/17 EGD/ colonoscopy, other colonoscopies. Past Anesthesia/Blood Transfusion Reactions: Previous Problems w/ Anesthesia Additional Past Anesthesia/Blood Transfusion Reaction / Comment(s): after appendix removed sob Past Psychological History: Anxiety, Depression Additional Psychological History / Comment(s): Pt lives in an apartment alone in [facility] . complex has front door ramp and has an elevator. no pets. Sometimes his sister stays with him and cleans his home. He uses a cane to ambulate at times. He drives but currently has no car. He gets to [employer] by [employer] bus. He has a nebulizer. Used to work in [employer]. Relates that he's not been a smoker. Denies recreational drug use. His left him many years ago he has adult children that he does not see very often. No experience. No travel history. No animal exposures Smoking Status: Never smoker Past Alcohol Use History: Occasional Additional Past Alcohol Use History / Comment(s): Pt stated when he was younger he drank heavy but had cut down to occ. pt stated he is trying to quit and has' nt drank in 4 weeks. Past Drug Use History: None Reported - Past Family History Mother Family Medical History: COPD, CVA/TIA, Dementia Additional Family Medical History / Comment(s): from a stroke Father Family Medical History: Pneumonia Additional Family Medical History / Comment(s): Father of pneumonia when he was close to 80 yrs old. Medications and Allergies Home Medications Medication Instructions Recorded Confirmed Type Docusate [Colace] 100 mg PO DAILY PRN #20 capsule 08/27/17 11/21/17 Rx Ferrous Sulfate [Feosol] 325 mg PO DAILY #30 tab 08/27/17 11/21/17 Rx metFORMIN HCL 1,000 mg PO BID 09/23/17 11/21/17 History Magnesium Oxide 400 mg PO DAILY #30 tablet 09/24/17 11/21/17 Rx Aspirin 81 mg PO DAILY #30 chew 10/10/17 11/21/17 Rx Atorvastatin Calcium [Lipitor] 10 mg PO HS #30 tab 10/10/17 11/21/17 Rx Pantoprazole [Protonix] 40 mg PO AC-BID #60 tablet. 10/25/17 11/21/17 Rx Folic Acid 1 mg PO DAILY 11/09/17 11/21/17 History Multivitamins, Thera [Multivitamin 1 tab PO DAILY 11/09/17 11/21/17 History (formulary)] Thiamine [Vitamin B-1] 100 mg PO DAILY 11/09/17 11/21/17 History Cefuroxime Axetil [Ceftin] 500 mg PO BID #20 tab 11/11/17 11/21/17 Rx Nadolol [Corgard] 20 mg PO DAILY #30 tab 11/11/17 11/21/17 Rx Allergies Allergy/AdvReac Type Severity Reaction Status Date / Time adhesive tape Allergy Rash/Hives Verified 11/21/17 12:51 egg AdvReac Nausea & Verified 11/21/17 12:51 Vomiting lisinopril AdvReac EYES Verified 11/21/17 12:51 BURN&ITCH/WEAKNESS tomato AdvReac Nausea & Verified 11/21/17 12:51 Vomiting & Diarrhea Physical Exam Vitals: Vital Signs Temp Pulse Pulse Resp BP BP Pulse Ox 11/22/17 14:00 96 18 153/84 94 L 11/22/17 13:00 98 18 139/87 92 L 11/22/17 12:00 98 18 137/96 96 11/22/17 11:23 98.4 F 107 H 16 95 11/22/17 07:45 98.3 F 80 18 136/79 97 11/22/17 07:44 88 11/22/17 07:35 88 11/22/17 04:00 97.7 F 88 18 138/82 98 11/22/17 03:43 16 11/22/17 00:00 97.9 F 81 16 161/92 98 11/21/17 20:54 68 11/21/17 20:42 70 98 11/21/17 20:00 97.6 F 84 16 170/88 97 Intake and Output 11/22/17 11/22/17 11/22/17 06:59 14:59 22:59 Other: # Voids 1 GENERAL: Calm and comfortable likely distress resting comfortably in bed HEENT: Head is atraumatic, normocephalic. Pupils are equal, round. Sclerae anicteric. Conjunctivae are clear. Mucous membranes of the mouth are moist. Neck is supple. There is no jugular venous distention. No carotid bruit is heard. LUNGS: Clear to auscultation no wheezes, rales or rhonchi. No chest wall tenderness is noted on palpation or with deep breathing. HEART: Regular rate and rhythm without murmurs, rubs or gallops. S1 and S2 heard. ABDOMEN: Soft, nontender. Bowel sounds are heard. No organomegaly noted. EXTREMITIES: No evidence of peripheral edema and no calf tenderness noted. VASCULAR: Radial and dorsalis pedis pulses palpated, no evidence of clubbing. NEUROLOGIC: Patient is awake, alert and oriented x3. Examination of the skin revealed no evidence of significant rashes, suspicious appearing nevi or other concerning lesions. Results - Laboratory Findings CBC and BMP: 11/22/17 11:39 11/21/17 12:30 PT/INR, D-dimer PT 11.8 sec (9.0-12.0) 11/21/17 12:30 INR 1.2 (<1.2) H 11/21/17 12:30 Abnormal lab findings: Abnormal Labs 11/21/17 11/21/17 11/21/17 12:30 12:30 12:30 WBC 3.1 L RBC 3.14 L Hgb 8.2 L Hct 27.1 L MCHC 30.4 L RDW 18.2 H Plt Count 85 L D INR Glucose 115 H POC Glucose (mg/dL) Calcium 8.3 L AST 86 H Total Creatine Kinase 255 H 11/21/17 11/21/17 11/21/17 12:30 16:52 18:59 WBC RBC Hgb Hct MCHC RDW Plt Count INR 1.2 H Glucose POC Glucose (mg/dL) 103 H Calcium AST Total Creatine Kinase 320 H 11/21/17 11/22/17 11/22/17 19:57 00:30 07:42 WBC RBC Hgb Hct MCHC RDW Plt Count INR Glucose POC Glucose (mg/dL) 137 H 117 H Calcium AST Total Creatine Kinase 416 H 11/22/17 11/22/17 11:08 11:39 WBC RBC 3.67 L Hgb 9.4 L Hct 31.2 L MCHC 30.3 L RDW 17.6 H Plt Count 100 L INR Glucose POC Glucose (mg/dL) 173 H Calcium AST Total Creatine Kinase - Diagnostic Findings Chest x-ray: image reviewed Assessment and Plan Plan: Assessment 1 chest pain likely noncardiac in nature. There is some pleurisy or pleuritic component to his chest pain. Based on his previous history of pulmonary embolism, it's reasonable to consider a CT angios the chest to further investigate ongoing chest pain. Nevertheless, the patient has had 2 CT angios the chest during this current year on 09/22/2017 and 11/09/2017 and both of them were negative for pulmonary embolism or nondiagnostic at least. EKGs negative. Cardiac as is a been negative. Previous stress test with a negative 2 seizure disorder. The patient has history of childhood seizures and he has been seizure free for many years and currently he is in the ICU for a single bout of seizure occurred this afternoon that was treated with Ativan. EEG is in progress. CAT scan of the brain is also in progress 3 alcoholism 4 chronic liver cirrhosis with secondary portal hypertension previous history of GI bleed 5 CVA without any residual deficits 6 diabetes mellitus 7 hypertension 8 hyperlipidemia 9 previous history of PE 10 cervical disc disease with chronic neck pain, 11 chronic back pain 12 history of a chair fibrillation current rhythm is sinus 13LV function based on a recent echocardiogram that showed an ejection fraction of 60-65% Plan Consult neurology. EEG. CAT scan of the brain. Seizure precautions. Monitor the pain. Doubt pulmonary embolism. Repeat CT angios the chest. We'll continue to follow.
--- NOTE | 2017-11-22 16:18 | XR ---
Right hip HISTORY: Pain 2 views of the right hip Bone mineralization, joint spaces and alignment are maintained. Prominence on the superior femoral ne ck is noted on the oblique view. No fracture or dislocation present. IMPRESSION: No acute abnormality. Correlate for possible femoral acetabular impingement.
--- NOTE | 2017-11-22 17:29 | CT ---
EXAMINATION TYPE: CT brain wo con DATE OF EXAM: 11/22/2017 COMPARISON: 09/01/2016 HISTORY: Seizure CT DLP: 1040.0 mGycm Automated exposure control for dose reduction was used. FINDINGS: There is mild cerebral cortical atrophy. There is no mass effect nor midline shift. There is no sign of intracranial hemorrhage. The calvarium is intact. IMPRESSION: MILD ATROPHY. NO ACUTE INTRACRANIAL ABNORMALITY. NO CHANGE.
--- NOTE | 2017-11-22 17:31 | CT ---
EXAMINATION TYPE: CT angio chest DATE OF EXAM: 11/22/2017 5:10 PM COMPARISON: 11/09/2017 HISTORY: Chest pains, left side, now right CT DLP: 289.3 mGycm Automated exposure control for dose reduction was used. CONTRAST: CTA scan of the thorax is performed with IV Contrast, patient injected with 100 mL of Isovue 370, pul monary embolism protocol. There are 3-D post processed images.. FINDINGS: There is mild coarsening of interstitial peripheral pulmonary markings. There is no evidence of a pul monary mass. There is no pleural effusion. There is no pericardial effusion. Heart size is normal. Th ere is no evidence of aortic aneurysm or dissection. There is normal contrast opacification of the pu lmonary arteries. There are no filling defects. There is calcified subcarinal lymph node. There is no mediastinal adenopathy. There is spurring in the thoracic spine. IMPRESSION: NO EVIDENCE OF PULMONARY EMBOLISM. INTERSTITIAL PULMONARY FIBROTIC CHANGES. NO CHANGE COMPARED TO OLD EXAM.
[2017-11-22 17:51] LABS: Glucose,Whole Blood 120 mg/dL (75-99)
[2017-11-22] MEDS: HYDROcodone/APAP 7.5-325MG 1 EACH TAB PO PRN (17:54)
--- NOTE | 2017-11-22 18:35 | P.CNNES ---
History of Present Illness Consult date: 11/22/17 Reason for Consult: Patient with possible seizure disorder. History of Present Illness: This patient is a 62-year-old right-handed white male who was admitted to [facility] yesterday with symptoms of acute chest pain. Patient has a history of alcohol is on and has a history of drinking heavily but has not had a drink in 4 weeks. 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 He has not been on any seizure medications recently. Patient was admitted to Hospital yesterday for further evaluation of severe chest pain. The chest pain seems to be precordial and seems to radiate outwards. He denies any previous history of heart attacks of coronary artery disease. He has had previous dobutamine stress test echo was done which came back negative for any evidence of ischemic heart disease. Apparently his last test was done a few months ago. The patient was brought into the emergency room as he was having symptoms for over 3 days. He also complains of increased shortness of breath. 3 sets of cardiac enzymes were done and have come back negative thus far. The patient was being ready to undergo a stress test today for further cardiac evaluation. Prior to him initiating the stress test the patient had what appears to have been a tonic -clonic seizure that lasted 1-2 minutes. He was given Ativan which quickly stop the seizure activity. 18 was called but by the time they had arrived at the scene all of his symptoms had resolved. He did not appear to be postictal following the event. He denies any previous history of seizures. As noted he has not been on any recent anticonvulsant medications. He was transferred to the intensive care unit where he was seen today for further neurological follow- up. He underwent a emergent EEG today which was reviewed and is normal for his age. There was no evidence of any epileptiform discharges. The patient is resting comfortably in bed. He does continue to complain of chest pain at this time. We are waiting further recommendations from cardiology. Neurology is now been consulted for further evaluation and recommendations. Review of Systems Constitutional: Denies chills, Denies fever Eyes: denies blurred vision, denies pain Ears, nose, mouth and throat: Denies headache, Denies sore throat Cardiovascular: Denies chest pain, Denies shortness of breath Respiratory: Denies cough Gastrointestinal: Denies abdominal pain, Denies diarrhea, Denies nausea, Denies vomiting Musculoskeletal: Denies myalgias Integumentary: Denies pruritus, Denies rash Neurological: Reports confusion, Reports convulsions, Reports memory loss, Reports seizures, Reports syncope, Reports tremors, Denies numbness, Denies weakness Psychiatric: Denies anxiety, Denies depression Endocrine: Denies fatigue, Denies weight change Past Medical History Past Medical History: Atrial Fibrillation, Chest Pain / Angina, COPD, CVA/TIA, Diabetes Mellitus, GERD/Reflux, GI Bleed, Hyperlipidemia, Hypertension, Pulmonary Embolus (PE) Additional Past Medical History / Comment(s): Alcoholism, chronic alcoholic cirrhosis with portal hypertension and previous history of GI bleeding, esophageal varices, diabetes mellitus, hypertension, hyperlipidemia, previous history of childhood seizure which he outgrew not taking any antiepileptic medication, history of atrial fibrillation, history of pulmonary embolism, hypertension, hyperlipidemia, previous history of GI bleed, previous history of CVA without any residual deficits. He also has history of diverticulosis, chronic lower extremity ankle edema, previous history of septicemia, cervical disc disease with chronic back pain, degenerative arthritis involving the lower back, tinnitus History of Any Multi-Drug Resistant Organisms: None Reported Past Surgical History: Appendectomy, Cholecystectomy Additional Past Surgical History / Comment(s): 07/20/17 EGD, 03/21/17 EGD/ colonoscopy, other colonoscopies. Past Anesthesia/Blood Transfusion Reactions: Previous Problems w/ Anesthesia Additional Past Anesthesia/Blood Transfusion Reaction / Comment(s): after appendix removed sob Past Psychological History: Anxiety, Depression Additional Psychological History / Comment(s): Pt lives in an apartment alone in [facility] . complex has front door ramp and has an elevator. no pets. Sometimes his sister stays with him and cleans his home. He uses a cane to ambulate at times. He drives but currently has no car. He gets to [employer] by [employer] bus. He has a nebulizer. Used to work in [employer]. Relates that he's not been a smoker. Denies recreational drug use. His left him many years ago he has adult children that he does not see very often. No experience. No travel history. No animal exposures Smoking Status: Never smoker Past Alcohol Use History: Occasional Additional Past Alcohol Use History / Comment(s): Pt stated when he was younger he drank heavy but had cut down to occ. pt stated he is trying to quit and has' nt drank in 4 weeks. Past Drug Use History: None Reported - Past Family History Mother Family Medical History: COPD, CVA/TIA, Dementia Additional Family Medical History / Comment(s): from a stroke Father Family Medical History: Pneumonia Additional Family Medical History / Comment(s): Father of pneumonia when he was close to 80 yrs old. Medications and Allergies Home Medications Medication Instructions Recorded Confirmed Type Docusate [Colace] 100 mg PO DAILY PRN #20 capsule 08/27/17 11/21/17 Rx Ferrous Sulfate [Feosol] 325 mg PO DAILY #30 tab 08/27/17 11/21/17 Rx metFORMIN HCL 1,000 mg PO BID 09/23/17 11/21/17 History Magnesium Oxide 400 mg PO DAILY #30 tablet 09/24/17 11/21/17 Rx Aspirin 81 mg PO DAILY #30 chew 10/10/17 11/21/17 Rx Atorvastatin Calcium [Lipitor] 10 mg PO HS #30 tab 10/10/17 11/21/17 Rx Pantoprazole [Protonix] 40 mg PO AC-BID #60 tablet. 10/25/17 11/21/17 Rx Folic Acid 1 mg PO DAILY 11/09/17 11/21/17 History Multivitamins, Thera [Multivitamin 1 tab PO DAILY 11/09/17 11/21/17 History (formulary)] Thiamine [Vitamin B-1] 100 mg PO DAILY 11/09/17 11/21/17 History Cefuroxime Axetil [Ceftin] 500 mg PO BID #20 tab 11/11/17 11/21/17 Rx Nadolol [Corgard] 20 mg PO DAILY #30 tab 11/11/17 11/21/17 Rx Allergies Allergy/AdvReac Type Severity Reaction Status Date / Time adhesive tape Allergy Rash/Hives Verified 11/21/17 12:51 egg AdvReac Nausea & Verified 11/21/17 12:51 Vomiting lisinopril AdvReac EYES Verified 11/21/17 12:51 BURN&ITCH/WEAKNESS tomato AdvReac Nausea & Verified 11/21/17 12:51 Vomiting & Diarrhea Physical Examination - Vital Signs Vital Signs: Vital Signs Temp Pulse Pulse Resp BP BP Pulse Ox 11/22/17 14:00 96 18 153/84 94 L 11/22/17 13:00 98 18 139/87 92 L 11/22/17 12:00 98 18 137/96 96 11/22/17 11:23 98.4 F 107 H 16 95 11/22/17 07:45 98.3 F 80 18 136/79 97 11/22/17 07:44 88 11/22/17 07:35 88 11/22/17 04:00 97.7 F 88 18 138/82 98 11/22/17 03:43 16 11/22/17 00:00 97.9 F 81 16 161/92 98 11/21/17 20:54 68 11/21/17 20:42 70 98 11/21/17 20:00 97.6 F 84 16 170/88 97 Intake and Output 11/22/17 11/22/17 11/22/17 06:59 14:59 22:59 Other: # Voids 1 - Constitutional General appearance: average body habitus, cooperative - EENT EENT: PERRL, mucous membranes moist - Respiratory Respiratory: lungs clear, normal breath sounds - Cardiovascular Cardiovascular: regular rate, normal S1, normal S2 Extremities: no peripheral edema bilaterally - Gastrointestinal Gastrointestinal: normoactive bowel sounds - Integumentary Integumentary: normal - Neurologic Cranial nerve examination: PERRL, EOMI, VFF, V1/V2/V3 grossly intact, face symmetric, tongue midline, intact gag reflex, intact corneal reflex, normal palatal elevation Speech examination: intact Sensorimotor examination: intact Motor examination - right side: 4/5: biceps, triceps, wrist flexion, wrist extension, flap presser, hip flexors, knee extensors, dorsiflexion, toe extension (EHL) , plantarflexion Motor examination - left side: 4/5: biceps, triceps, wrist flexion, wrist extension, flap presser, hip flexors, knee extensors, dorsiflexion, toe extension (EHL) , plantarflexion Detailed sensory examination: intact Reflex and gait examination: intact Reflexes: 1+: ankle, bicep, knee, tricep - Musculoskeletal Musculoskeletal: no pain - Psychiatric Psychiatric: mood/affect appropriate, cooperative Results - Laboratory Findings CBC and BMP: 11/22/17 11:39 11/21/17 12:30 Abnormal Lab Findings: Abnormal Labs 07/01/0111/21/17 11/21/17 12:30 12:30 12:30 WBC 3.1 L RBC 3.14 L Hgb 8.2 L Hct 27.1 L MCHC 30.4 L RDW 18.2 H Plt Count 85 L D INR Glucose 115 H POC Glucose (mg/dL) Calcium 8.3 L AST 86 H Total Creatine Kinase 255 H 11/21/17 11/21/17 11/21/17 12:30 16:52 18:59 WBC RBC Hgb Hct MCHC RDW Plt Count INR 1.2 H Glucose POC Glucose (mg/dL) 103 H Calcium AST Total Creatine Kinase 320 H 11/21/17 11/22/17 11/22/17 19:57 00:30 07:42 WBC RBC Hgb Hct MCHC RDW Plt Count INR Glucose POC Glucose (mg/dL) 137 H 117 H Calcium AST Total Creatine Kinase 416 H 11/22/17 11/22/17 11:08 11:39 WBC RBC 3.67 L Hgb 9.4 L Hct 31.2 L MCHC 30.3 L RDW 17.6 H Plt Count 100 L INR Glucose POC Glucose (mg/dL) 173 H Calcium AST Total Creatine Kinase Assessment and Plan (1) New onset seizure Current Visit: Yes Status: Acute Code(s): R56.9 - UNSPECIFIED CONVULSIONS SNOMED Code(s): 00035133 (2) Alcohol withdrawal Current Visit: No Status: Acute Code(s): F10.239 - ALCOHOL DEPENDENCE WITH WITHDRAWAL, UNSPECIFIED SNOMED Code(s): 922837886 (3) Chest pain Current Visit: No Status: Acute Code(s): R07.9 - CHEST PAIN, UNSPECIFIED SNOMED Code(s): 80443762 (4) GI bleed Current Visit: No Status: Acute Code(s): K92.2 - GASTROINTESTINAL HEMORRHAGE , UNSPECIFIED SNOMED Code(s): 59056497 Plan: This patient is a 62-year-old male who was admitted to hospital with 3 day history of severe chest pain. He was being ready to undergo a stress test today when he had a possible seizure activity lasting 1-2 minutes in duration. He was subsequently given Ativan and transferred to the intensive care unit. He underwent a routine EEG today and ICU the results of which are noted above. His EEG was normal with no evidence of any epileptiform discharges. Patient does have history of alcohol abuse and alcohol exposure doses of the liver. He has not had a drink in 4 weeks. He is to be monitored for possible alcohol withdrawal seizure. As noted his EEG was within normal limits today. We will continue to monitor his condition closely with seizure precautions in place. We did review the results of the EEG today with the patient in detail. He is complaining of ongoing retrosternal and precordial chest pain. We're waiting further recommendations from cardiology regarding the chest pain symptoms. He underwent a computed tomography scan of the brain which was reported negative for any acute changes. He underwent a CT angiogram of the chest which is still pending at this time. At this time we will continue close neurological follow- up this patient. He is to continue with seizure precautions. We will reevaluate him if he should have any further breakthrough seizures. May use Ativan when necessary as needed. His overall prognosis at this time remains very guarded. He is advised that he cannot drive for appeared to 6 months following this last seizure-like event. He is aware of the [place] driving regulation. We will continue to follow his progress closely during this admission. His overall prognosis at this time remains guarded. Time with Patient: Greater than 30
[2017-11-22 19:50] LABS: Iron Saturation 21.49 (15.00-50.00)
--- NOTE | 2017-11-22 19:54 | EEG ---
ELECTROENCEPHALOGRAM REPORT DATE OF EE11/22/2017. REFERRING PHYSICIAN: Dr. Finney. CONSULTING AND INTERPRETING PHYSICIAN: Dr. Corrine Alexis. ELECTROENCEPHALOGRAPHIC EXAMINATION REPORT: INDICATION FOR EXAMINATION: This patient is a 62-year-old male, admitted for acute chest pain. Patient had seizure like event prior to stress test today. AGE: 62. EEG FINDINGS: A routine 21 channel awake digital EEG recording was accomplished utilizing the 10-20 international system with bipolar and referential montages. The background activity in the most alert resting state consists of a low to medium amplitude, fairly well developed and well sustained 8 Hz activity over the posterior head regions. This posterior rhythm attenuates to eye opening. There is a moderate amount of low amplitude 18-20 Hz beta activity seen in a generalized fashion. Muscle and movement artifact was observed on several occasions during the tracing. Hyperventilation was not performed. Photic stimulation at flash frequencies of 2-30 Hz produced a good symmetrical occipital driving response. No epileptiform discharges were seen. IMPRESSION: This EEG is within normal limits for the patient's age. The EEG failed to reveal any focal, lateralized, or epileptiform abnormalities. Clinical correlation is recommended. MMODL / IJN: [id number] /
[2017-11-22 21:45] LABS: Glucose,Whole Blood 103 mg/dL (75-99)
[2017-11-22] MEDS: ATORVASTATIN 10 MG TAB PO SCH (21:45)
[2017-11-23 04:05] LABS: Anisocytosis Slight; Basophils % (A) 0 %; Eosinophils # (A) 0.1 k/uL (0-0.7); Eosinophils % (A) 2 %; HCT 28.8 % (39.0-53.0); HGB 8.6 gm/dL (13.0-17.5); Hypochromasia Marked; Lymphocytes # (A) 1.2 k/uL (1.0-4.8); Lymphocytes % (A) 18 %; MCH 25.7 pg (25.0-35.0); MCHC 29.9 g/dL (31.0-37.0); MCV 86.2 fL (80.0-100.0); Mean Platelet Volume 8.2; Monocytes # (A) 0.3 k/uL (0-1.0); Monocytes % (A) 5 %; Neutrophils # (A) 5.1 k/uL (1.3-7.7); Neutrophils % (A) 74 %; Poikilocytosis Slight; RBC 3.34 m/uL (4.30-5.90); RDW 17.7 % (11.5-15.5); WBC 6.8 k/uL (3.8-10.6)
[2017-11-23 04:24] LABS: ALT 49 U/L (21-72); AST 108 U/L (17-59); Albumin 3.9 g/dL (3.5-5.0); Alkaline Phosphatase 119 U/L (38-126); Anion Gap 15 mmol/L; Blood Urea Nitrogen 13 mg/dL (9-20); Carbon Dioxide 26 mmol/L (22-30); Chloride 93 mmol/L (98-107); Glucose 113 mg/dL (74-99); Magnesium 1.8 mg/dL (1.6-2.3); Phosphorus 2.9 mg/dL (2.5-4.5); Potassium 3.4 mmol/L (3.5-5.1); Sodium 134 mmol/L (137-145); Total Protein 7.6 g/dL (6.3-8.2)
[2017-11-23 04:27] LABS: Platelet Count 92 k/uL (150-450)
[2017-11-23] MEDS: POTASSIUM CHLORIDE ER 20 MEQ TAB.ER PO SCH ×2 (05:28→06:22)
[2017-11-23] MEDS: MAGNESIUM SULFATE-D5W PMX 1 GM in DEXTROSE/WATER 1 100ML.BAG IVPB SCH ×2 (05:28→06:19)
[2017-11-23] MEDS: HYDROmorphone 0.5 MG/0.5 ML SYRINGE IVP PRN ×4 (05:35→18:28)
[2017-11-23] MEDS: INSULIN ASPART 100 UNIT/ML 1 ML 10 ML VIAL SQ SCH ×4 (07:01→21:15)
[2017-11-23 07:02] LABS: Glucose,Whole Blood 139 mg/dL (75-99)
[2017-11-23] MEDS: PANTOPRAZOLE 40 MG TABLET PO SCH ×2 (07:09→18:22)
--- NOTE | 2017-11-23 08:05 | P.PN ---
Subjective Progress Note Date: 11/23/17 Principal diagnosis: Atypical chest discomfort This is a pleasant 62-year-old gentleman with a past medical history significant for chronic alcohol use, diabetes, hypertension, dyslipidemia presented to the hospital with a chest discomfort. He was seen and evaluated yesterday by Dr. Kulkarni who felt that the chest discomfort was quite atypical. A stress test was ordered and was done but we don't have the results yet. On follow-up with the patient today, he still have chest discomfort seems to be atypical, pleuritic, and reproducible as well as. The cardiac enzymes are unremarkable. The EKG did not show any ischemic changes. No history of coronary artery disease. During the night yesterday the patient was transferred to the intensive care because he developed an episode of seizure. He stated that he knows about the seizure and does not know to home. Objective - Vital Signs Vital signs: Vital Signs Temp 98.0 F 11/23/17 04:00 Pulse 89 11/23/17 07:00 Resp 21 11/23/17 07:00 BP 121/69 11/23/17 07:00 Pulse Ox 93 L 11/23/17 07:00 Intake & Output 11/22/17 11/23/17 11/23/17 18:59 06:59 18:59 Intake Total 620 60 Output Total 0 Balance 0 620 60 Weight 82.8 kg Intake: IV 200 Magnesium Sulfate-D5w Pmx 200 1 gm In Dextrose/Water 1 100ml.bag @ 100 mls/hr IVPB Q1H TANYA Rx#: [id number] Oral 420 60 Output: Urine 0 Other: Voiding Method Toilet # Voids 1 - Constitutional General appearance: Present: no acute distress - Respiratory Respiratory: bilateral: wheezing - Cardiovascular Rhythm: regular Heart sounds: normal: S1, S2 - Labs CBC & Chem 7: 11/23/17 03:35 11/23/17 03:35 Labs: Abnormal Lab Results - Last 24 Hours (Table) 11/22/17 11/22/17 11/22/17 Range/Units 11:08 11:39 11:39 RBC 3.67 L (4.30-5.90) m/uL Hgb 9.4 L (13.0-17.5) gm/dL Hct 31.2 L (39.0-53.0) % MCHC 30.3 L (31.0-37.0) g/dL RDW 17.6 H (11.5-15.5) % Plt Count 100 L (150-450) k/uL Sodium (137-145) mmol/L Potassium (3.5-5.1) mmol/L Chloride (98-107) mmol/L Glucose (74-99) mg/dL POC Glucose (mg/dL) 173 H (75-99) mg/dL TIBC 484 H (228-460) ug/dL AST (17-59) U/L 11/22/17 11/22/17 11/23/17 Range/Units 17:50 21:44 03:35 RBC 3.34 L (4.30-5.90) m/uL Hgb 8.6 L (13.0-17.5) gm/dL Hct 28.8 L (39.0-53.0) % MCHC 29.9 L (31.0-37.0) g/dL RDW 17.7 H (11.5-15.5) % Plt Count 92 L (150-450) k/uL Sodium (137-145) mmol/L Potassium (3.5-5.1) mmol/L Chloride (98-107) mmol/L Glucose (74-99) mg/dL POC Glucose (mg/dL) 120 H 103 H (75-99) mg/dL TIBC (228-460) ug/dL AST (17-59) U/L 11/23/17 11/23/17 Range/Units 03:35 07:00 RBC (4.30-5.90) m/uL Hgb (13.0-17.5) gm/dL Hct (39.0-53.0) % MCHC (31.0-37.0) g/dL RDW (11.5-15.5) % Plt Count (150-450) k/uL Sodium 134 L (137-145) mmol/L Potassium 3.4 L (3.5-5.1) mmol/L Chloride 93 L (98-107) mmol/L Glucose 113 H (74-99) mg/dL POC Glucose (mg/dL) 139 H (75-99) mg/dL TIBC (228-460) ug/dL AST 108 H (17-59) U/L Assessment and Plan Assessment: Assessment #1 atypical/reproducible chest discomfort #2 multiple risk factors including diabetes, hypertension, dyslipidemia #3 chronic alcohol use #4 chronic anemia #5 seizure Plan #1 the patient was ruled out for acute coronary event #2 a stress test was ordered and will follow-up with that #3 obtain d-dimer to rule out a PE #5 follow-up with the patient.
[2017-11-23] MEDS: IPRATROPIUM-ALBUTEROL 3 ML NEB INHALATION PRN ×4 (08:11→20:54)
[2017-11-23] MEDS: HYDROcodone/APAP 7.5-325MG 1 EACH TAB PO PRN ×3 (08:13→18:28)
[2017-11-23] MEDS: CEFDINIR 300 MG CAP PO SCH ×2 (09:04→20:05)
[2017-11-23] MEDS: ASPIRIN 81 MG PO SCH (09:04)
[2017-11-23] MEDS: FERROUS SULFATE 325 MG TAB PO SCH (09:05)
[2017-11-23] MEDS: THIAMINE 100 MG TAB PO SCH (09:05)
[2017-11-23] MEDS: MULTIVITAMINS, THERA 1 EACH TAB PO SCH (09:05)
[2017-11-23] MEDS: NADOLOL 20 MG TAB PO SCH (09:06)
[2017-11-23] MEDS: MAGNESIUM OXIDE 400 MG TAB PO SCH (09:06)
[2017-11-23] MEDS: FOLIC ACID 1 MG TAB PO SCH (09:06)
[2017-11-23] MEDS: ENOXAPARIN 40 MG/0.4 ML SYRINGE SQ SCH (10:08)
[2017-11-23] MEDS: ONDANSETRON 4 MG/2 ML VIAL IVP PRN (10:55)
[2017-11-23] MEDS ORDERED: POTASSIUM CHLORIDE ER 20 MEQ TAB.ER PO SCH (11:00)
--- NOTE | 2017-11-23 11:26 | P.PN ---
Subjective Progress Note Date: 11/23/17 Mr. Aguilar was hospitalized yesterday because of chest pain. His known to have previous history of alcoholism and he states that he hasn't drank for approximately 4 weeks. He also has history of childhood epilepsy that he outgrew and he does not take any antiepileptic medications. The patient also has history of hypertension, hyperlipidemia, CVA without any major residual deficits, atrial fibrillation, and pulmonary embolism. He also has history of hypertension, hyperlipidemia, diabetes mellitus and chronic alcoholic liver disease with alcoholic cirrhosis and portal hypertension and previous history of GI bleed secondary to esophageal varices. He denies having any previous history of heart attacks or coronary artery disease. He has had over previous dobutamine stress echo that came back negative for any ischemic heart disease. The patient comes in with chest pain that's been constant over the past 3 days. He has also noted some some increased shortness of breath. EKG was within normal. 3 sets of cardiac and those were negative. This afternoon while trying to undergo a stress test, the patient was taken to the stress test lab and while he is stay and even prior to initiating the stress test the patient had a tonic-clonic generalized seizure activity that lasted a few minutes. He was given Ativan during the process. By the time the A team arrived to the scene the patient was already awake and not seizing. He did not have any post ictal changes following the seizure. Currently is wide awake and following commands and answering questions. Denies having any headache and there is no focal neurological deficits. He is still complaining of the same pain across his chest. No hemoptysis. No pleurisy. He remains hemodynamically stable. On today's evaluation the patient is doing very well. The patient is being seen in follow-up on 11/23/2017. The patient is extremely stable. The patient has not had any further episodes of seizures since yesterday. The patient was seen by neurology. A CAT scan of the brain was completed and the patient did not have any significant abnormalities. EEG was not was also within normal limits. No anti-convulsant therapy was offered. The patient also had a CT angios the chest in regards to the ongoing chest pain and the findings are also within normal limits. He is resting comfortably in bed. He has no specific complaints. He is hemodynamically stable. The plan is to proceed with a cardiac stress test with a later stage. The patient's condition remained unchanged. Chef Instructor on the case. Objective - Vital Signs Vital signs: Vital Signs Temp 98.2 F 11/23/17 08:00 Pulse 83 11/23/17 11:00 Resp 19 11/23/17 11:00 BP 118/78 11/23/17 11:00 Pulse Ox 94 L 11/23/17 11:00 Intake & Output 11/22/17 11/23/17 11/23/17 18:59 06:59 18:59 Intake Total 620 1040 Output Total 0 Balance 0 620 1040 Weight 82.8 kg Intake: IV 200 Magnesium Sulfate-D5w Pmx 200 1 gm In Dextrose/Water 1 100ml.bag @ 100 mls/hr IVPB Q1H TANYA Rx#: [id number] Oral 420 1040 Output: Urine 0 Other: Voiding Method Toilet # Voids 1 1 - Exam GENERAL: Calm and comfortable likely distress resting comfortably in bed HEENT: Head is atraumatic, normocephalic. Pupils are equal, round. Sclerae anicteric. Conjunctivae are clear. Mucous membranes of the mouth are moist. Neck is supple. There is no jugular venous distention. No carotid bruit is heard. LUNGS: Clear to auscultation no wheezes, rales or rhonchi. No chest wall tenderness is noted on palpation or with deep breathing. HEART: Regular rate and rhythm without murmurs, rubs or gallops. S1 and S2 heard. ABDOMEN: Soft, nontender. Bowel sounds are heard. No organomegaly noted. EXTREMITIES: No evidence of peripheral edema and no calf tenderness noted. VASCULAR: Radial and dorsalis pedis pulses palpated, no evidence of clubbing. NEUROLOGIC: Patient is awake, alert and oriented x3. Examination of the skin revealed no evidence of significant rashes, suspicious appearing nevi or other concerning lesions. - Labs CBC & Chem 7: 11/23/17 03:35 11/23/17 08:06 Labs: Abnormal Lab Results - Last 24 Hours (Table) 11/22/17 11/22/17 11/22/17 Range/Units 11:08 11:39 11:39 RBC 3.67 L (4.30-5.90) m/uL Hgb 9.4 L (13.0-17.5) gm/dL Hct 31.2 L (39.0-53.0) % MCHC 30.3 L (31.0-37.0) g/dL RDW 17.6 H (11.5-15.5) % Plt Count 100 L (150-450) k/uL Sodium (137-145) mmol/L Potassium (3.5-5.1) mmol/L Chloride (98-107) mmol/L Glucose (74-99) mg/dL POC Glucose (mg/dL) 173 H (75-99) mg/dL TIBC 484 H (228-460) ug/dL AST (17-59) U/L 11/22/17 11/22/17 11/23/17 Range/Units 17:50 21:44 03:35 RBC 3.34 L (4.30-5.90) m/uL Hgb 8.6 L (13.0-17.5) gm/dL Hct 28.8 L (39.0-53.0) % MCHC 29.9 L (31.0-37.0) g/dL RDW 17.7 H (11.5-15.5) % Plt Count 92 L (150-450) k/uL Sodium (137-145) mmol/L Potassium (3.5-5.1) mmol/L Chloride (98-107) mmol/L Glucose (74-99) mg/dL POC Glucose (mg/dL) 120 H 103 H (75-99) mg/dL TIBC (228-460) ug/dL AST (17-59) U/L 11/23/17 11/23/17 Range/Units 03:35 07:00 RBC (4.30-5.90) m/uL Hgb (13.0-17.5) gm/dL Hct (39.0-53.0) % MCHC (31.0-37.0) g/dL RDW (11.5-15.5) % Plt Count (150-450) k/uL Sodium 134 L (137-145) mmol/L Potassium 3.4 L (3.5-5.1) mmol/L Chloride 93 L (98-107) mmol/L Glucose 113 H (74-99) mg/dL POC Glucose (mg/dL) 139 H (75-99) mg/dL TIBC (228-460) ug/dL AST 108 H (17-59) U/L Assessment and Plan Plan: Assessment 1 chest pain likely noncardiac in nature. There is some pleurisy or pleuritic component to his chest pain. Based on his previous history of pulmonary embolism, it's reasonable to consider a CT angios the chest to further investigate ongoing chest pain. Nevertheless, the patient has had 2 CT angios the chest during this current year on 09/22/2017 and 11/09/2017 and both of them were negative for pulmonary embolism or nondiagnostic at least. EKGs negative. Cardiac as is a been negative. Previous stress test with a negative On today's evaluation, the patient is being seen on 11/23/2017, and a CT angios the chest was completed and the patient was not found to have any acute abnormalities. We're going to proceed with a cardiac stress test at the later stage although the pain is somewhat noncardiac and atypical in nature. 2 seizure disorder. The patient has history of childhood seizures and he has been seizure free for many years and currently he is in the ICU for a single bout of seizure occurred this afternoon that was treated with Ativan. The CAT scan of the brain was done yesterday was within normal limits. The EEG was also within normal. The patient is not having any further episodes of seizures and the patient was not offered any anticonvulsant therapy at this point in time. 3 alcoholism 4 chronic liver cirrhosis with secondary portal hypertension previous history of GI bleed 5 CVA without any residual deficits 6 diabetes mellitus 7 hypertension 8 hyperlipidemia 9 previous history of PE 10 cervical disc disease with chronic neck pain, 11 chronic back pain 12 history of a chair fibrillation current rhythm is sinus 13LV function based on a recent echocardiogram that showed an ejection fraction of 60-65% Plan The input from neurology and cardiology was appreciated. The patient was not offered anticonvulsant therapy. We are monitoring him for any further seizures. He will need a cardiac stress test. CT angios the chest was negative. He can be moved to a medical floor with telemetry monitoring.
[2017-11-23 12:09] LABS: Glucose,Whole Blood 124 mg/dL (75-99)
--- NOTE | 2017-11-23 14:12 | P.PN ---
Subjective Progress Note Date: 11/23/17 This is a 62-year-old male, patient of [facility]. He has a known past medical history of atrial fibrillation and not on anticoagulation due to previous GI bleed, COPD, diabetes mellitus type 2, hyperlipidemia, hypertension , PE, esophageal varices with bleeding requiring EGD and ligation in October 2017, TIA. Patient was recently hospitalized in November 11 with chest pain due to pneumonia. Patient reports that he had one more day of antibiotics left. Reports he is still having some cough and having some chills. He also has been complaining of left-sided chest pain and that worsens with cough. EKG normal sinus rhythm. Troponins were negative 3 sets. Chest x-ray showed partial clearing of the left lower lobe airspace disease. Patient's last stress test he reports as 2 years ago and was normal. Patient was seen by cardiology service and they have scheduled him for a stress echo today. Apparently patient had a seizure when he was downstairs to undergo the stress dobutamine echo. Cardiology nurse practitioner has notified me. That she had witnessed a seizure. Reports that the seizure lasted for about 1 minute. And he is currently in a postictal state. He also had a decrease in oxygen saturation. Please refer to cardiology nurse practitioners for report regarding the seizure. Patient will be given 1 dose of IV Ativan 1 mg. Neurology will be consulted. His chart did report epilepsy as a child. Patient does have a history of alcohol dependency. But he reports no alcohol use for 4 weeks now. Patient had denied any nausea vomiting, bowel movement changes urinary symptoms. And denied any shortness of breath. 11/23/2017 patient has had no further seizures. He'll be transferred out of the ICU today. Still complaining of some episodes of chest discomfort. This afternoon it appears that the pain happened after eating. EKG normal sinus rhythm CT of the chest was negative for PE. EEG showed no seizure activity. Computed tomography scan of the brain was negative. X-ray of the right hip no acute changes and reports correlate for a femoral acetabular impingement. Patient's right hip pain is now resolved. Objective - Vital Signs Vital signs: Vital Signs Temp 98.2 F 11/23/17 12:00 Pulse 74 11/23/17 14:00 Resp 22 11/23/17 14:00 BP 110/52 11/23/17 14:00 Pulse Ox 92 L 11/23/17 14:00 Intake & Output 11/22/17 11/23/17 11/23/17 18:59 06:59 18:59 Intake Total 620 2580 Output Total 0 Balance 0 620 2580 Weight 82.8 kg Intake: IV 200 Magnesium Sulfate-D5w Pmx 200 1 gm In Dextrose/Water 1 100ml.bag @ 100 mls/hr IVPB Q1H [facility] Rx#: [id number] Oral 420 2580 Output: Urine 0 Other: Voiding Method Toilet Toilet # Voids 1 1 - Exam Head normocephalic Neck supple Lungs clear to auscultation bilaterally no wheezing or crackles Heart regular rate and rhythm S1-S2, no rub or gallop Abdomen is soft nontender nondistended positive bowel sounds no hepatosplenomegaly Extremities no edema Neuro alert and orientated to 3 - Labs CBC & Chem 7: 11/23/17 03:35 11/23/17 08:06 Labs: Abnormal Lab Results - Last 24 Hours (Table) 11/22/17 11/22/17 11/22/17 Range/Units 11:39 17:50 21:44 RBC (4.30-5.90) m/uL Hgb (13.0-17.5) gm/dL Hct (39.0-53.0) % MCHC (31.0-37.0) g/dL RDW (11.5-15.5) % Plt Count (150-450) k/uL Sodium (137-145) mmol/L Potassium (3.5-5.1) mmol/L Chloride (98-107) mmol/L Glucose (74-99) mg/dL POC Glucose (mg/dL) 120 H 103 H (75-99) mg/dL TIBC 484 H (228-460) ug/dL AST (17-59) U/L 11/23/17 11/23/17 11/23/17 Range/Units 03:35 03:35 07:00 RBC 3.34 L (4.30-5.90) m/uL Hgb 8.6 L (13.0-17.5) gm/dL Hct 28.8 L (39.0-53.0) % MCHC 29.9 L (31.0-37.0) g/dL RDW 17.7 H (11.5-15.5) % Plt Count 92 L (150-450) k/uL Sodium 134 L (137-145) mmol/L Potassium 3.4 L (3.5-5.1) mmol/L Chloride 93 L (98-107) mmol/L Glucose 113 H (74-99) mg/dL POC Glucose (mg/dL) 139 H (75-99) mg/dL TIBC (228-460) ug/dL AST 108 H (17-59) U/L 11/23/17 Range/Units 12:07 RBC (4.30-5.90) m/uL Hgb (13.0-17.5) gm/dL Hct (39.0-53.0) % MCHC (31.0-37.0) g/dL RDW (11.5-15.5) % Plt Count (150-450) k/uL Sodium (137-145) mmol/L Potassium (3.5-5.1) mmol/L Chloride (98-107) mmol/L Glucose (74-99) mg/dL POC Glucose (mg/dL) 124 H (75-99) mg/dL TIBC (228-460) ug/dL AST (17-59) U/L Assessment and Plan Assessment: 1. Chest pain: Troponins negative 3 sets. EKG normal sinus rhythm. Patient seen by cardiology has been ruled out for an acute coronary event. Patient will eventually need stress test 2. New witnessed seizure prior to patient having dobutamine stress echo. 1 mg of Ativan ordered. Patient does have a history of epilepsy as a child. Patient reports that he stopped taking seizure medications as a teenager. Patient seen by neurology. Appreciate their input. 3. Recent community-acquired pneumonia chest x-ray showing improvement. Continue with Omnicef 4. History of alcohol dependency. Patient reports it's been about 4 weeks since his last alcoholic beverage. Continue thiamine, multivitamin and folic acid 5. History of paroxysmal atrial fibrillation: Not on anticoagulation due to GI bleed 6. History of pulmonary embolism 7. Diabetes mellitus type 2 continue sliding scale coverage 8. Hyperlipidemia continue statin 9. History of esophageal varices requiring EGD and ligation on 10/21/2017 10. Iron deficiency anemia: Continue iron supplement. Hemoglobin 8.6, total iron 104 11. History of TIA 12. Essential hypertension 13. History of COPD stable no evidence of exacerbation 14. Hypokalemia patient received potassium supplement 15. Chronic liver cirrhosis with secondary portal hypertension 16. Thrombocytopenia likely secondary to patient's liver disease GI prophylaxis Protonix and DVT prophylaxis SCDs Patient is medically stable to be transferred out of the ICU to [facility] I performed an examination of the patient and discussed their management with the physician Ux Information Architect. I have reviewed the Physician Ux Information Architect's notes and agree with the documented findings and plan of care
[2017-11-23 14:41] LABS: Glucose,Whole Blood 146 mg/dL (75-99)
[2017-11-23] MEDS: DOCUSATE 100 MG CAP PO PRN (15:41)
--- NOTE | 2017-11-23 16:01 | P.PN ---
Subjective Progress Note Date: 11/23/17 Patient seen today in the ICU for follow-up regarding possible seizure event yesterday. He underwent CT Scan of the Brain and EEG both of which were normal. He is being monitored for any further seizure like events and thus far he has had none. The patient was initially hospitalized due to severe chest pain. Yesterday he continued to have atypical chest pain. He is being followed closely by cardiology. Cardiology is suggesting the patient to consider having the stress test done at a later date. He underwent CT angiogram the chest which did come back within normal limits yesterday. Dr. Drew is following the patient closely and has made some adjustments with his medications as well. He does remain hemodynamically stable. He does continue to complain of right-sided chest pain. He has had no further seizure-like events that initially triggered this consultation. As noted his CAT scan of the brain was normal as well as his EEG being normal with no evidence of any epileptiform discharges. We will continue close monitoring for any recurrent seizure spells. If he is to have any further seizure events he will be loaded with anticonvulsant therapy. The patient states he is still not feeling 100% due to the chest discomfort. We will continue close neurological follow-up for the patient. He has not had any seizure events since coming into the intensive care unit. He does have history of chronic liver cirrhosis and secondary portal hypertension in the past. He has history of alcohol use as well. He will be closely monitored for any signs of delirium tremens but thus far as not showing these findings. He is being considered for transfer out of the intensive care unit in the next 24 hours. He has been complaining of increased constipation and is to be given Colace. He did have some right hip pain which is now resolved. We will continue close neurological follow-up with this patient in the intensive care unit. Objective - Vital Signs Vital signs: Vital Signs Temp 98.2 F 11/23/17 12:00 Pulse 74 11/23/17 14:00 Resp 22 11/23/17 14:00 BP 110/52 11/23/17 14:00 Pulse Ox 92 L 11/23/17 14:00 Intake & Output 11/22/17 11/23/17 11/23/17 18:59 06:59 18:59 Intake Total 620 2580 Output Total 0 Balance 0 620 2580 Weight 82.8 kg Intake: IV 200 Magnesium Sulfate-D5w Pmx 200 1 gm In Dextrose/Water 1 100ml.bag @ 100 mls/hr IVPB Q1H [facility] Rx#: [id number] Oral 420 2580 Output: Urine 0 Other: Voiding Method Toilet Toilet # Voids 1 1 - Exam Physical examination: PHYSICAL EXAMINATION: Patient is resting comfortably in bed. VITAL SIGNS: Blood pressure is [138/83]. Heart rate is [80]. Respiration is [17] . Temperature is [98.2]. HEENT: Head is atraumatic, neck is supple, there were no carotid bruits. CHEST: Lungs are clear to auscultation and percussion. CARDIAC: S1, S2 normal rate and rhythm. There is no murmur. ABDOMEN: Soft and nontender. Bowel sounds are present. EXTREMITIES: There is no pedal edema. Peripheral pulses are present. Neurological examination: Patient has a nonfocal neurological examination today. - Labs CBC & Chem 7: 11/23/17 03:35 11/23/17 13:30 Labs: Abnormal Lab Results - Last 24 Hours (Table) 11/22/17 11/22/17 11/22/17 Range/Units 11:39 17:50 21:44 RBC (4.30-5.90) m/uL Hgb (13.0-17.5) gm/dL Hct (39.0-53.0) % MCHC (31.0-37.0) g/dL RDW (11.5-15.5) % Plt Count (150-450) k/uL Sodium (137-145) mmol/L Potassium (3.5-5.1) mmol/L Chloride (98-107) mmol/L Glucose (74-99) mg/dL POC Glucose (mg/dL) 120 H 103 H (75-99) mg/dL TIBC 484 H (228-460) ug/dL AST (17-59) U/L 11/23/17 11/23/17 11/23/17 Range/Units 03:35 03:35 07:00 RBC 3.34 L (4.30-5.90) m/uL Hgb 8.6 L (13.0-17.5) gm/dL Hct 28.8 L (39.0-53.0) % MCHC 29.9 L (31.0-37.0) g/dL RDW 17.7 H (11.5-15.5) % Plt Count 92 L (150-450) k/uL Sodium 134 L (137-145) mmol/L Potassium 3.4 L (3.5-5.1) mmol/L Chloride 93 L (98-107) mmol/L Glucose 113 H (74-99) mg/dL POC Glucose (mg/dL) 139 H (75-99) mg/dL TIBC (228-460) ug/dL AST 108 H (17-59) U/L 11/23/17 11/23/17 Range/Units 12:07 14:38 RBC (4.30-5.90) m/uL Hgb (13.0-17.5) gm/dL Hct (39.0-53.0) % MCHC (31.0-37.0) g/dL RDW (11.5-15.5) % Plt Count (150-450) k/uL Sodium (137-145) mmol/L Potassium (3.5-5.1) mmol/L Chloride (98-107) mmol/L Glucose (74-99) mg/dL POC Glucose (mg/dL) 124 H 146 H (75-99) mg/dL TIBC (228-460) ug/dL AST (17-59) U/L Assessment and Plan (1) New onset seizure Current Visit: Yes Status: Acute Code(s): R56.9 - UNSPECIFIED CONVULSIONS SNOMED Code(s): 87104292 (2) Alcohol withdrawal Current Visit: No Status: Acute Code(s): F10.239 - ALCOHOL DEPENDENCE WITH WITHDRAWAL, UNSPECIFIED SNOMED Code(s): 627039752 (3) Chest pain Current Visit: No Status: Acute Code(s): R07.9 - CHEST PAIN, UNSPECIFIED SNOMED Code(s): 67364959 (4) GI bleed Current Visit: No Status: Acute Code(s): K92.2 - GASTROINTESTINAL HEMORRHAGE , UNSPECIFIED SNOMED Code(s): 67128869 Plan: This patient is a 62-year-old male who is being evaluated for recent episode of possible seizure activity just prior to undergoing cardiac stress test yesterday. He underwent further evaluation for this event including computed tomography scan of the brain as well as routine EEG. Both of the studies came back normal. He is being evaluated for acute chest pain which appears to be noncardiac in nature. He underwent a CT angiogram of the chest yesterday which came back normal. His EKGs have been negative. He is being followed closely by cardiology. Dr. Drew once to proceed with another stress test may be in the next 24 hours. He has had no further seizure events since coming into the intensive care unit. He only had one dose of Ativan and has had no further events reported. Patient is to be monitored closely with this given history of chronic liver cirrhosis and alcohol is him for any signs of early DTs. Thus far he has remained stable. We will await further recommendations from cardiology in regards to his atypical chest pain symptoms. He is being considered for transfer out of the intensive care unit in the next day or 2. We will continue to monitor his condition closely. His overall prognosis at this time remains guarded. We will continue close neurological follow-up with this patient in the intensive care unit.
[2017-11-23 16:56] LABS: Glucose,Whole Blood 151 mg/dL (75-99)
[2017-11-23] MEDS: ATORVASTATIN 10 MG TAB PO SCH (20:05)
[2017-11-23 21:15] LABS: Glucose,Whole Blood 122 mg/dL (75-99)
[2017-11-24] MEDS: HYDROmorphone 0.5 MG/0.5 ML SYRINGE IVP PRN (04:47)
[2017-11-24] MEDS: INSULIN ASPART 100 UNIT/ML 1 ML 10 ML VIAL SQ SCH ×4 (05:57→22:04)
[2017-11-24] MEDS: PANTOPRAZOLE 40 MG TABLET PO SCH ×2 (05:58→17:46)
[2017-11-24 05:59] LABS: Glucose,Whole Blood 124 mg/dL (75-99)
[2017-11-24 06:41] LABS: Anisocytosis Slight; Basophils % (A) 0 %; Eosinophils # (A) 0.1 k/uL (0-0.7); Eosinophils % (A) 2 %; HCT 25.9 % (39.0-53.0); HGB 8.1 gm/dL (13.0-17.5); Hypochromasia Marked; Lymphocytes # (A) 1.2 k/uL (1.0-4.8); Lymphocytes % (A) 20 %; MCH 26.5 pg (25.0-35.0); MCHC 31.4 g/dL (31.0-37.0); MCV 84.6 fL (80.0-100.0); Mean Platelet Volume 9.6; Monocytes # (A) 0.5 k/uL (0-1.0); Monocytes % (A) 8 %; Neutrophils # (A) 4.2 k/uL (1.3-7.7); Neutrophils % (A) 69 %; RBC 3.06 m/uL (4.30-5.90); RDW 17.8 % (11.5-15.5); WBC 6.1 k/uL (3.8-10.6)
[2017-11-24 06:49] LABS: Platelet Count 95 k/uL (150-450)
[2017-11-24 07:23] LABS: ALT 46 U/L (21-72); AST 104 U/L (17-59); Albumin 3.5 g/dL (3.5-5.0); Alkaline Phosphatase 116 U/L (38-126); Anion Gap 10 mmol/L; Blood Urea Nitrogen 13 mg/dL (9-20); Calcium 8.7 mg/dL (8.4-10.2); Carbon Dioxide 27 mmol/L (22-30); Chloride 94 mmol/L (98-107); Glucose 110 mg/dL (74-99); Potassium 3.8 mmol/L (3.5-5.1); Sodium 131 mmol/L (137-145); Total Bilirubin 0.9 mg/dL (0.2-1.3); Total Protein 7.1 g/dL (6.3-8.2)
[2017-11-24] MEDS: IPRATROPIUM-ALBUTEROL 3 ML NEB INHALATION PRN ×3 (07:44→16:25)
[2017-11-24] MEDS: CEFDINIR 300 MG CAP PO SCH ×2 (08:03→22:03)
[2017-11-24] MEDS: ENOXAPARIN 40 MG/0.4 ML SYRINGE SQ SCH (08:03)
[2017-11-24] MEDS: ASPIRIN 81 MG PO SCH (08:03)
[2017-11-24] MEDS: FOLIC ACID 1 MG TAB PO SCH (08:04)
[2017-11-24] MEDS: FERROUS SULFATE 325 MG TAB PO SCH (08:04)
[2017-11-24] MEDS: NADOLOL 20 MG TAB PO SCH (08:04)
[2017-11-24] MEDS: MAGNESIUM OXIDE 400 MG TAB PO SCH (08:04)
[2017-11-24] MEDS: MULTIVITAMINS, THERA 1 EACH TAB PO SCH (08:04)
[2017-11-24] MEDS: THIAMINE 100 MG TAB PO SCH (08:05)
[2017-11-24] MEDS: HYDROcodone/APAP 7.5-325MG 1 EACH TAB PO PRN ×3 (08:05→22:01)
[2017-11-24] MEDS ORDERED: DOBUTamine DRIP for NUC MED 500 MG in DEXTROSE/WATER 1 250ML.BAG IV ONE (09:36)
[2017-11-24] MEDS ORDERED: ATROPINE SULFATE 0.1 MG/ML 10ML SYRINGE ONE (10:22)
[2017-11-24 11:29] LABS: Glucose,Whole Blood 128 mg/dL (75-99)
--- NOTE | 2017-11-24 11:47 | P.PN ---
Subjective Progress Note Date: 11/24/17 This is a 62-year-old male, patient of [facility]. He has a known past medical history of atrial fibrillation and not on anticoagulation due to previous GI bleed, COPD, diabetes mellitus type 2, hyperlipidemia, hypertension , PE, esophageal varices with bleeding requiring EGD and ligation in October 2017, TIA. Patient was recently hospitalized in November 11 with chest pain due to pneumonia. Patient reports that he had one more day of antibiotics left. Reports he is still having some cough and having some chills. He also has been complaining of left-sided chest pain and that worsens with cough. EKG normal sinus rhythm. Troponins were negative 3 sets. Chest x-ray showed partial clearing of the left lower lobe airspace disease. Patient's last stress test he reports as 2 years ago and was normal. Patient was seen by cardiology service and they have scheduled him for a stress echo today. Apparently patient had a seizure when he was downstairs to undergo the stress dobutamine echo. Cardiology nurse practitioner has notified me. That she had witnessed a seizure. Reports that the seizure lasted for about 1 minute. And he is currently in a postictal state. He also had a decrease in oxygen saturation. Please refer to cardiology nurse practitioners for report regarding the seizure. Patient will be given 1 dose of IV Ativan 1 mg. Neurology will be consulted. His chart did report epilepsy as a child. Patient does have a history of alcohol dependency. But he reports no alcohol use for 4 weeks now. Patient had denied any nausea vomiting, bowel movement changes urinary symptoms. And denied any shortness of breath. 11/23/2017 patient has had no further seizures. He'll be transferred out of the ICU today. Still complaining of some episodes of chest discomfort. This afternoon it appears that the pain happened after eating. EKG normal sinus rhythm CT of the chest was negative for PE. EEG showed no seizure activity. Computed tomography scan of the brain was negative. X-ray of the right hip no acute changes and reports correlate for a femoral acetabular impingement. Patient's right hip pain is now resolved. On 11/24/2017 patient is currently resting comfortably bed with no further seizure activity. He has been transferred out of ICU. Still complains of chest discomfort. Cardiology following and has ordered a dobutamine stress test. Objective - Vital Signs Vital signs: Vital Signs Temp 98.1 F 11/24/17 08:00 Pulse 88 11/24/17 11:20 Resp 16 11/24/17 08:00 BP 116/68 11/24/17 08:00 Pulse Ox 98 11/24/17 08:00 Intake & Output 11/23/17 11/24/17 11/24/17 18:59 06:59 18:59 Intake Total 2820 Output Total 300 700 Balance 2520 -700 Weight 78.2 kg Intake: Oral 2820 Output: Urine 300 700 Other: Voiding Method Toilet Toilet # Voids 0 - Exam Head normocephalic Neck supple Lungs clear to auscultation bilaterally no wheezing or crackles Heart regular rate and rhythm S1-S2, no rub or gallop Abdomen is soft nontender nondistended positive bowel sounds no hepatosplenomegaly Extremities no edema Neuro alert and orientated to 3 - Labs CBC & Chem 7: 11/24/17 06:08 11/24/17 06:08 Labs: Abnormal Lab Results - Last 24 Hours (Table) 11/23/17 11/23/17 11/23/17 Range/Units 03:35 12:07 14:38 RBC (4.30-5.90) m/uL Hgb (13.0-17.5) gm/dL Hct (39.0-53.0) % RDW (11.5-15.5) % Plt Count (150-450) k/uL Sodium (137-145) mmol/L Chloride (98-107) mmol/L Glucose (74-99) mg/dL POC Glucose (mg/dL) 124 H 146 H (75-99) mg/dL AST (17-59) U/L Vitamin D 25-Hydroxy 25.4 L (30.0-100.0) ng/mL 11/23/17 11/23/17 11/24/17 Range/Units 16:53 21:14 05:56 RBC (4.30-5.90) m/uL Hgb (13.0-17.5) gm/dL Hct (39.0-53.0) % RDW (11.5-15.5) % Plt Count (150-450) k/uL Sodium (137-145) mmol/L Chloride (98-107) mmol/L Glucose (74-99) mg/dL POC Glucose (mg/dL) 151 H 122 H 124 H (75-99) mg/dL AST (17-59) U/L Vitamin D 25-Hydroxy (30.0-100.0) ng/mL 11/24/17 11/24/17 11/24/17 Range/Units 06:08 06:08 11:17 RBC 3.06 L (4.30-5.90) m/uL Hgb 8.1 L (13.0-17.5) gm/dL Hct 25.9 L (39.0-53.0) % RDW 17.8 H (11.5-15.5) % Plt Count 95 L (150-450) k/uL Sodium 131 L (137-145) mmol/L Chloride 94 L (98-107) mmol/L Glucose 110 H (74-99) mg/dL POC Glucose (mg/dL) 128 H (75-99) mg/dL AST 104 H (17-59) U/L Vitamin D 25-Hydroxy (30.0-100.0) ng/mL Assessment and Plan Assessment: 1. Chest pain: Troponins negative 3 sets. EKG normal sinus rhythm. Patient seen by cardiology has been ruled out for an acute coronary event. Cardiology has ordered a dobutamine stress test for today 2. New witnessed seizure prior to patient having dobutamine stress echo. 1 mg of Ativan ordered. Patient does have a history of epilepsy as a child. Patient reports that he stopped taking seizure medications as a teenager. Patient seen by neurology. Per neurology EEG and computed tomography scan of the brain both came back normal. 3. Recent community-acquired pneumonia chest x-ray showing improvement. Continue with Omnicef 4. History of alcohol dependency. Patient reports it's been about 4 weeks since his last alcoholic beverage. Continue thiamine, multivitamin and folic acid 5. History of paroxysmal atrial fibrillation: Not on anticoagulation due to GI bleed 6. History of pulmonary embolism 7. Diabetes mellitus type 2 continue sliding scale coverage 8. Hyperlipidemia continue statin 9. History of esophageal varices requiring EGD and ligation on 10/21/2017 10. Iron deficiency anemia: Continue iron supplement. Hemoglobin 8.6, total iron 104 11. History of TIA 12. Essential hypertension 13. History of COPD stable no evidence of exacerbation 14. Hypokalemia patient received potassium supplement 15. Chronic liver cirrhosis with secondary portal hypertension 16. Thrombocytopenia likely secondary to patient's liver disease 17. Hyponatremia. Sodium 131. We'll continue to monitor closely check labs in a.m. GI prophylaxis Protonix and DVT prophylaxis SCDs I performed an examination of the patient and discussed their management with the Nurse Practitioner. I have reviewed the Nurse Practitioner's notes and agree with the documented findings and plan of care
--- NOTE | 2017-11-24 12:35 | ECHOS ---
STRESS ECHOCARDIOGRAM DOBUTAMINE STRESS ECHO DATE OF SERVICE: 11/24/2017 INDICATIONS: Chest pain. MEDICATIONS: BASELINE HEART RATE: 84 BASELINE BLOOD PRESSURE: 112/65 MAXIMUM HEART RATE: 125 MAXIMUM BLOOD PRESSURE: 128/81 85% MPHR: 135 100% MPHR: 159 METS: MAXIMUM STAGE REACHED: TOTAL EXERCISE TIME: CLINICAL INFORMATION: History of chest pain. History of hypertension. Baseline heart rate 84 beats per minute. Baseline blood pressure 112/65 mmHg. Baseline 12-lead ECG showed normal sinus rhythm, normal cardiac intervals. The patient received dobutamine infusion per protocol. Normal heart rate and blood pressure response to exercise. Atropine was given at end of the dobutamine infusion. There was no ECG evidence for ischemia. Occasional PVCs were noted. No sustained arrhythmias were noted. Baseline 2D echo images showed normal LV size and systolic function without segmental wall motion abnormalities. With dobutamine, there was a stepwise increment in overall LV contractility without developing any wall motion abnormalities. At recovery regional global LV systolic function remained normal. IMPRESSION: No ECG or echocardiographic evidence for ischemia during dobutamine followed by atropine infusion. MMODL / IJN: [id number] /
--- NOTE | 2017-11-24 14:03 | P.PN ---
Subjective Progress Note Date: 11/24/17 Principal diagnosis: Mr. Aguilar was hospitalized yesterday because of chest pain. His known to have previous history of alcoholism and he states that he hasn't drank for approximately 4 weeks. He also has history of childhood epilepsy that he outgrew and he does not take any antiepileptic medications. The patient also has history of hypertension, hyperlipidemia, CVA without any major residual deficits, atrial fibrillation, and pulmonary embolism. He also has history of hypertension, hyperlipidemia, diabetes mellitus and chronic alcoholic liver disease with alcoholic cirrhosis and portal hypertension and previous history of GI bleed secondary to esophageal varices. He denies having any previous history of heart attacks or coronary artery disease. He has had over previous dobutamine stress echo that came back negative for any ischemic heart disease. The patient comes in with chest pain that's been constant over the past 3 days. He has also noted some some increased shortness of breath. EKG was within normal. 3 sets of cardiac and those were negative. This afternoon while trying to undergo a stress test, the patient was taken to the stress test lab and while he is stay and even prior to initiating the stress test the patient had a tonic-clonic generalized seizure activity that lasted a few minutes. He was given Ativan during the process. By the time the A team arrived to the scene the patient was already awake and not seizing. He did not have any post ictal changes following the seizure. Currently is wide awake and following commands and answering questions. Denies having any headache and there is no focal neurological deficits. He is still complaining of the same pain across his chest. No hemoptysis. No pleurisy. He remains hemodynamically stable. On today's evaluation the patient is doing very well. The patient is being seen in follow-up on 11/23/2017. The patient is extremely stable. The patient has not had any further episodes of seizures since yesterday. The patient was seen by neurology. A CAT scan of the brain was completed and the patient did not have any significant abnormalities. EEG was not was also within normal limits. No anti-convulsant therapy was offered. The patient also had a CT angios the chest in regards to the ongoing chest pain and the findings are also within normal limits. He is resting comfortably in bed. He has no specific complaints. He is hemodynamically stable. The plan is to proceed with a cardiac stress test with a later stage. The patient's condition remained unchanged. Director Clinical Information Services on the case. Patient is seen again today 11/24/2017 in follow-up on the selective care unit. He is awake and alert in no acute distress. He denies any shortness of breath , cough or congestion. He is maintaining O2 saturations in the upper 90s on room air. He's been afebrile. Hemodynamically stable. White count 6.1. Hemoglobin 8.1. Creatinine 0.80. He did undergo dobutamine stress echocardiogram today which revealed no evidence of ischemia. Objective - Vital Signs Vital signs: Vital Signs Temp 98.2 F 11/24/17 12:05 Pulse 82 11/24/17 12:05 Resp 16 11/24/17 12:05 BP 112/73 11/24/17 12:05 Pulse Ox 97 11/24/17 12:05 Intake & Output 11/23/17 11/24/17 11/24/17 18:59 06:59 18:59 Intake Total 2820 Output Total 300 700 Balance 2520 -700 Weight 78.2 kg Intake: Oral 2820 Output: Urine 300 700 Other: Voiding Method Toilet Toilet # Voids 0 - Exam GENERAL: Calm and comfortable likely distress resting comfortably in bed HEENT: Head is atraumatic, normocephalic. Pupils are equal, round. Sclerae anicteric. Conjunctivae are clear. Mucous membranes of the mouth are moist. Neck is supple. There is no jugular venous distention. No carotid bruit is heard. LUNGS: Clear to auscultation no wheezes, rales or rhonchi. No chest wall tenderness is noted on palpation or with deep breathing. HEART: Regular rate and rhythm without murmurs, rubs or gallops. S1 and S2 heard. ABDOMEN: Soft, nontender. Bowel sounds are heard. No organomegaly noted. EXTREMITIES: No evidence of peripheral edema and no calf tenderness noted. VASCULAR: Radial and dorsalis pedis pulses palpated, no evidence of clubbing. NEUROLOGIC: Patient is awake, alert and oriented x3. Examination of the skin revealed no evidence of significant rashes, suspicious appearing nevi or other concerning lesions. - Labs CBC & Chem 7: 11/24/17 06:08 11/24/17 06:08 Labs: Abnormal Lab Results - Last 24 Hours (Table) 11/23/17 11/23/17 11/23/17 Range/Units 03:35 14:38 16:53 RBC (4.30-5.90) m/uL Hgb (13.0-17.5) gm/dL Hct (39.0-53.0) % RDW (11.5-15.5) % Plt Count (150-450) k/uL Sodium (137-145) mmol/L Chloride (98-107) mmol/L Glucose (74-99) mg/dL POC Glucose (mg/dL) 146 H 151 H (75-99) mg/dL AST (17-59) U/L Vitamin D 25-Hydroxy 25.4 L (30.0-100.0) ng/mL 11/23/17 11/24/17 11/24/17 Range/Units 21:14 05:56 06:08 RBC 3.06 L (4.30-5.90) m/uL Hgb 8.1 L (13.0-17.5) gm/dL Hct 25.9 L (39.0-53.0) % RDW 17.8 H (11.5-15.5) % Plt Count 95 L (150-450) k/uL Sodium (137-145) mmol/L Chloride (98-107) mmol/L Glucose (74-99) mg/dL POC Glucose (mg/dL) 122 H 124 H (75-99) mg/dL AST (17-59) U/L Vitamin D 25-Hydroxy (30.0-100.0) ng/mL 11/24/17 11/24/17 Range/Units 06:08 11:17 RBC (4.30-5.90) m/uL Hgb (13.0-17.5) gm/dL Hct (39.0-53.0) % RDW (11.5-15.5) % Plt Count (150-450) k/uL Sodium 131 L (137-145) mmol/L Chloride 94 L (98-107) mmol/L Glucose 110 H (74-99) mg/dL POC Glucose (mg/dL) 128 H (75-99) mg/dL AST 104 H (17-59) U/L Vitamin D 25-Hydroxy (30.0-100.0) ng/mL Assessment and Plan Assessment: Assessment 1 chest pain likely noncardiac in nature. There is some pleurisy or pleuritic component to his chest pain. Based on his previous history of pulmonary embolism, CT angiogram was performed and ruled out pulmonary embolism. EKGs negative. Cardiac as is a been negative. To the stress echocardiogram performed today was negative for ischemia. 2 seizure disorder. The patient has history of childhood seizures and he has been seizure free for many years and currently he is in the ICU for a single bout of seizure occurred this afternoon that was treated with Ativan. The CAT scan of the brain was done yesterday was within normal limits. The EEG was also within normal. The patient is not having any further episodes of seizures and the patient was not offered any anticonvulsant therapy at this point in time. 3 alcoholism 4 chronic liver cirrhosis with secondary portal hypertension previous history of GI bleed 5 CVA without any residual deficits 6 diabetes mellitus 7 hypertension 8 hyperlipidemia 9 previous history of PE 10 cervical disc disease with chronic neck pain, 11 chronic back pain 12 history of a chair fibrillation current rhythm is sinus 13LV function based on a recent echocardiogram that showed an ejection fraction of 60-65% Plan The patient was seen and evaluated by Dr. Rae. He is stable from the pulmonary standpoint. Stress testing negative for ischemia. We'll continue with his current medications. We'll continue to follow. I, the cosigning physician, performed a history & physical examination of the patient. Lungs sounds are clear. Maintaining good O2 saturations in the 90s on room air. I discussed the assessment and plan of care with my nurse practitioner, Xuan Gresham. I attest to the above note as dictated by her.
--- NOTE | 2017-11-24 14:22 | P.PN ---
Subjective Progress Note Date: 11/24/17 This is a pleasant 62-year-old gentleman with a past medical history significant for chronic alcohol use, diabetes, hypertension, dyslipidemia presented to the hospital with a chest discomfort. He was seen and evaluated yesterday by Dr. Kulkarni who felt that the chest discomfort was quite atypical. A stress test was ordered, but while in the stress test patient had what appeared to be seizure. EEG was negative for any seizure activity. Today the patient overall feels well, he continues to have chest discomfort is very pleuritic in nature. Dobutamine cardiographic study has been ordered for today. Blood pressure 112/70 with a heart rate in the 80s, temperature 98.2, 97 % on room air. White blood cell count 6.1, hemoglobin 8.1, platelet count 95. Sodium 131, potassium 3.8, BUN 13, creatinine 0.8. Objective - Vital Signs Vital signs: Vital Signs Temp 98.2 F 11/24/17 12:05 Pulse 82 11/24/17 12:05 Resp 16 11/24/17 12:05 BP 112/73 11/24/17 12:05 Pulse Ox 97 11/24/17 12:05 Intake & Output 11/23/17 11/24/17 11/24/17 18:59 06:59 18:59 Intake Total 2820 Output Total 300 700 Balance 2520 -700 Weight 78.2 kg Intake: Oral 2820 Output: Urine 300 700 Other: Voiding Method Toilet Toilet # Voids 0 - Exam GENERAL: Calm and comfortable likely distress resting comfortably in bed HEENT: Head is atraumatic, normocephalic. Pupils are equal, round. Sclerae anicteric. Conjunctivae are clear. Mucous membranes of the mouth are moist. Neck is supple. There is no jugular venous distention. No carotid bruit is heard. LUNGS: Clear to auscultation no wheezes, rales or rhonchi. No chest wall tenderness is noted on palpation or with deep breathing. HEART: Regular rate and rhythm without murmurs, rubs or gallops. S1 and S2 heard. ABDOMEN: Soft, nontender. Bowel sounds are heard. No organomegaly noted. EXTREMITIES: No evidence of peripheral edema and no calf tenderness noted. VASCULAR: Radial and dorsalis pedis pulses palpated, no evidence of clubbing. NEUROLOGIC: Patient is awake, alert and oriented x3. Examination of the skin revealed no evidence of significant rashes, suspicious appearing nevi or other concerning lesions. - Labs CBC & Chem 7: 11/24/17 06:08 11/24/17 06:08 Labs: Abnormal Lab Results - Last 24 Hours (Table) 11/23/17 11/23/17 11/23/17 Range/Units 03:35 14:38 16:53 RBC (4.30-5.90) m/uL Hgb (13.0-17.5) gm/dL Hct (39.0-53.0) % RDW (11.5-15.5) % Plt Count (150-450) k/uL Sodium (137-145) mmol/L Chloride (98-107) mmol/L Glucose (74-99) mg/dL POC Glucose (mg/dL) 146 H 151 H (75-99) mg/dL AST (17-59) U/L Vitamin D 25-Hydroxy 25.4 L (30.0-100.0) ng/mL 11/23/17 11/24/17 11/24/17 Range/Units 21:14 05:56 06:08 RBC 3.06 L (4.30-5.90) m/uL Hgb 8.1 L (13.0-17.5) gm/dL Hct 25.9 L (39.0-53.0) % RDW 17.8 H (11.5-15.5) % Plt Count 95 L (150-450) k/uL Sodium (137-145) mmol/L Chloride (98-107) mmol/L Glucose (74-99) mg/dL POC Glucose (mg/dL) 122 H 124 H (75-99) mg/dL AST (17-59) U/L Vitamin D 25-Hydroxy (30.0-100.0) ng/mL 11/24/17 11/24/17 Range/Units 06:08 11:17 RBC (4.30-5.90) m/uL Hgb (13.0-17.5) gm/dL Hct (39.0-53.0) % RDW (11.5-15.5) % Plt Count (150-450) k/uL Sodium 131 L (137-145) mmol/L Chloride 94 L (98-107) mmol/L Glucose 110 H (74-99) mg/dL POC Glucose (mg/dL) 128 H (75-99) mg/dL AST 104 H (17-59) U/L Vitamin D 25-Hydroxy (30.0-100.0) ng/mL Assessment and Plan Plan: Assessment #1 chest pain likely noncardiac in nature. There is some pleurisy or pleuritic component to his chest pain. Based on his previous history of pulmonary embolism, CT angiogram was performed and ruled out pulmonary embolism. EKGs negative. Cardiac enzymes negative. Dobutamine echocardiographic study scheduled for today. #2 seizure disorder. The patient has history of childhood seizures and he has been seizure free for many years and currently he is in the ICU for a single bout of seizure occurred this afternoon that was treated with Ativan. The CAT scan of the brain was done yesterday was within normal limits. The EEG was also within normal. The patient is not having any further episodes of seizures and the patient was not offered any anticonvulsant therapy at this point in time. #3 alcoholism #4 chronic liver cirrhosis with secondary portal hypertension previous history of GI bleed #5 CVA without any residual deficits #6 diabetes mellitus #7 hypertension #8 hyperlipidemia #9 previous history of PE #10 cervical disc disease with chronic neck pain, #11 chronic back pain #12 history of a chair fibrillation current rhythm is sinus #13LV function based on a recent echocardiogram that showed an ejection fraction of 60-65% Plan Patient will undergo dobutamine echocardiographic study today, if negative from cardiology standpoint he may be able to be discharged home. Further recommendations to follow. DNP note has been reviewed, I agree with a documented findings and plan of care. Patient was seen and examined.
[2017-11-24 16:32] LABS: Glucose,Whole Blood 95 mg/dL (75-99)
--- NOTE | 2017-11-24 19:41 | P.PN ---
Subjective Progress Note Date: 11/24/17 This patient is a 62-year-old male who is being followed today for recent episode of seizure event that occurred just prior to him going for a stress test. Patient was admitted with symptoms of severe chest pain. He was being scheduled by cardiology for a stress test and unfortunately had an event which appeared to be seizure-like. He was evaluated for this condition and underwent a computed tomography scan of the brain which came back negative for any significant abnormality. He suffers only underwent a routine EEG which was reviewed and is normal for his age with no evidence of any epileptiform discharges. The patient also had CT angiogram of the chest which came back negative for pulmonary embolus. He was being followed closely by cardiology and did undergo a dobutamine stress echocardiogram today which was completed and revealed no evidence of cardiac ischemia. Cardiology has signed off and the patient is being considered for discharge home soon. He has had no further seizure-like event since coming to the medical floor. He was transferred out of the ICU yesterday and is currently on selective care. He states his chest pain still seems to wax and wane in terms of intensity. This likely is some form of pleuritic chest pain patient was once again reminded of the [place] driving law which states he cannot drive in the [facility] for appeared of 6 months following a seizure event. He is aware of this restriction. We did review once again his CAT scan and EEG results with him and he is aware of these results. The patient also was updated on the results of his dobutamine stress echo today. As noted it came back with no evidence of cardiac ischemia. He is being followed closely by cardiology for this condition as well. Patient has had no further seizure-like event since admission. We will continue close neurological follow-up for the patient. His overall prognosis at this time remains guarded. Objective - Vital Signs Vital signs: Vital Signs Temp 98.2 F 11/24/17 12:05 Pulse 86 11/24/17 16:36 Resp 16 11/24/17 15:24 BP 112/73 11/24/17 12:05 Pulse Ox 97 11/24/17 12:05 Intake & Output 11/23/17 11/24/17 11/24/17 18:59 06:59 18:59 Intake Total 2820 600 Output Total 300 1700 Balance 2520 -1100 Weight 78.2 kg Intake: Oral 2820 600 Output: Urine 300 1700 Other: Voiding Method Toilet Toilet # Voids 0 - Exam Physical examination: PHYSICAL EXAMINATION: Patient is resting comfortably in bed. VITAL SIGNS: Blood pressure is [112/73]. Heart rate is [82]. Respiration is [16] . Temperature is [98.2]. HEENT: Head is atraumatic, neck is supple, there were no carotid bruits. CHEST: Lungs are clear to auscultation and percussion. CARDIAC: S1, S2 normal rate and rhythm. There is no murmur. ABDOMEN: Soft and nontender. Bowel sounds are present. EXTREMITIES: There is no pedal edema. Peripheral pulses are present. Neurological examination: Patient has a nonfocal neurological examination today. - Labs CBC & Chem 7: 11/24/17 06:08 11/24/17 06:08 Labs: Abnormal Lab Results - Last 24 Hours (Table) 11/23/17 11/23/17 11/23/17 Range/Units 03:35 16:53 21:14 RBC (4.30-5.90) m/uL Hgb (13.0-17.5) gm/dL Hct (39.0-53.0) % RDW (11.5-15.5) % Plt Count (150-450) k/uL Sodium (137-145) mmol/L Chloride (98-107) mmol/L Glucose (74-99) mg/dL POC Glucose (mg/dL) 151 H 122 H (75-99) mg/dL AST (17-59) U/L Vitamin D 25-Hydroxy 25.4 L (30.0-100.0) ng/mL 11/24/17 11/24/17 11/24/17 Range/Units 05:56 06:08 06:08 RBC 3.06 L (4.30-5.90) m/uL Hgb 8.1 L (13.0-17.5) gm/dL Hct 25.9 L (39.0-53.0) % RDW 17.8 H (11.5-15.5) % Plt Count 95 L (150-450) k/uL Sodium 131 L (137-145) mmol/L Chloride 94 L (98-107) mmol/L Glucose 110 H (74-99) mg/dL POC Glucose (mg/dL) 124 H (75-99) mg/dL AST 104 H (17-59) U/L Vitamin D 25-Hydroxy (30.0-100.0) ng/mL 11/24/17 Range/Units 11:17 RBC (4.30-5.90) m/uL Hgb (13.0-17.5) gm/dL Hct (39.0-53.0) % RDW (11.5-15.5) % Plt Count (150-450) k/uL Sodium (137-145) mmol/L Chloride (98-107) mmol/L Glucose (74-99) mg/dL POC Glucose (mg/dL) 128 H (75-99) mg/dL AST (17-59) U/L Vitamin D 25-Hydroxy (30.0-100.0) ng/mL Assessment and Plan (1) New onset seizure Current Visit: Yes Status: Acute Code(s): R56.9 - UNSPECIFIED CONVULSIONS SNOMED Code(s): 05184202 (2) Alcohol withdrawal Current Visit: No Status: Acute Code(s): F10.239 - ALCOHOL DEPENDENCE WITH WITHDRAWAL, UNSPECIFIED SNOMED Code(s): 118113643 (3) Chest pain Current Visit: No Status: Acute Code(s): R07.9 - CHEST PAIN, UNSPECIFIED SNOMED Code(s): 64251836 (4) GI bleed Current Visit: No Status: Acute Code(s): K92.2 - GASTROINTESTINAL HEMORRHAGE , UNSPECIFIED SNOMED Code(s): 74437910 Plan: This patient is a 62-year-old male who is being evaluated for recent episode of possible seizure activity just prior to undergoing cardiac stress test yesterday. He underwent further evaluation for this event including computed tomography scan of the brain as well as routine EEG. Both of the studies came back normal. He is being evaluated for acute chest pain which appears to be noncardiac in nature. He underwent a CT angiogram of the chest yesterday which came back normal. His EKGs have been negative. He is being followed closely by cardiology. Dr. Drew once to proceed with another stress test may be in the next 24 hours. He underwent his a dobutamine stress test today which came back negative for any evidence of cardiac ischemia. He has had no further seizure events since his last episode. He only had one dose of Ativan and has had no further events reported. Patient is to be monitored closely with this given history of chronic liver cirrhosis and alcohol is him for any signs of early DTs. Thus far he has remained stable. We will await further recommendations from cardiology in regards to his atypical chest pain symptoms. As noted he underwent a dobutamine stress test today which came back negative for any signs of cardiac ischemia. His chest pain seems to be noncardiac in nature probably related to some degree of pleuritic pain. He states there is been some improvement but he still has some discomfort in the chest area. Patient states he has been feeling well otherwise. He has had no further episodes of seizure- like events since his initial presentation. We will continue close monitoring for him for any recurrent spells. His overall prognosis at this time remains guarded. We will continue close neurological follow-up with this patient during this admission.
[2017-11-24 21:08] LABS: Glucose,Whole Blood 140 mg/dL (75-99)
[2017-11-25 06:21] LABS: Anisocytosis Slight; Basophils % (A) 1 %; Eosinophils # (A) 0.1 k/uL (0-0.7); Eosinophils % (A) 2 %; HGB 7.7 gm/dL (13.0-17.5); Hypochromasia Marked; Lymphocytes # (A) 1.2 k/uL (1.0-4.8); Lymphocytes % (A) 30 %; MCH 26.2 pg (25.0-35.0); MCHC 30.7 g/dL (31.0-37.0); MCV 85.4 fL (80.0-100.0); Mean Platelet Volume 9.2; Monocytes # (A) 0.5 k/uL (0-1.0); Monocytes % (A) 11 %; Neutrophils # (A) 2.2 k/uL (1.3-7.7); Neutrophils % (A) 54 %; Platelet Count 102 k/uL (150-450); RBC 2.93 m/uL (4.30-5.90); RDW 18.4 % (11.5-15.5); WBC 4.2 k/uL (3.8-10.6)
[2017-11-25 06:33] LABS: ALT 44 U/L (21-72); AST 94 U/L (17-59); Albumin 3.3 g/dL (3.5-5.0); Alkaline Phosphatase 109 U/L (38-126); Anion Gap 10 mmol/L; Blood Urea Nitrogen 15 mg/dL (9-20); Calcium 8.5 mg/dL (8.4-10.2); Carbon Dioxide 28 mmol/L (22-30); Chloride 100 mmol/L (98-107); Glucose 100 mg/dL (74-99); Sodium 138 mmol/L (137-145); Total Bilirubin 0.7 mg/dL (0.2-1.3); Total Protein 6.7 g/dL (6.3-8.2)
[2017-11-25 06:45] LABS: Glucose,Whole Blood 109 mg/dL (75-99)
[2017-11-25] MEDS: INSULIN ASPART 100 UNIT/ML 1 ML 10 ML VIAL SQ SCH ×4 (07:25→22:17)
[2017-11-25] MEDS: IPRATROPIUM-ALBUTEROL 3 ML NEB INHALATION PRN ×4 (07:46→19:18)
[2017-11-25] MEDS: CEFDINIR 300 MG CAP PO SCH ×2 (08:08→20:13)
[2017-11-25] MEDS: PANTOPRAZOLE 40 MG TABLET PO SCH ×2 (08:08→16:26)
[2017-11-25] MEDS: ASPIRIN 81 MG PO SCH (08:08)
[2017-11-25] MEDS: FERROUS SULFATE 325 MG TAB PO SCH (08:08)
[2017-11-25] MEDS: MAGNESIUM OXIDE 400 MG TAB PO SCH (08:09)
[2017-11-25] MEDS: NADOLOL 20 MG TAB PO SCH (08:09)
[2017-11-25] MEDS: FOLIC ACID 1 MG TAB PO SCH (08:09)
[2017-11-25] MEDS: THIAMINE 100 MG TAB PO SCH (08:09)
[2017-11-25] MEDS: MULTIVITAMINS, THERA 1 EACH TAB PO SCH (08:09)
[2017-11-25] MEDS ORDERED: ENOXAPARIN 40 MG/0.4 ML SYRINGE SQ SCH (09:00)
[2017-11-25 11:35] LABS: Glucose,Whole Blood 110 mg/dL (75-99)
[2017-11-25] MEDS: HYDROcodone/APAP 7.5-325MG 1 EACH TAB PO PRN ×2 (11:49→18:56)
--- NOTE | 2017-11-25 14:30 | P.PN ---
Subjective Progress Note Date: 11/25/17 This is a 62-year-old male, patient of [facility]. He has a known past medical history of atrial fibrillation and not on anticoagulation due to previous GI bleed, COPD, diabetes mellitus type 2, hyperlipidemia, hypertension , PE, esophageal varices with bleeding requiring EGD and ligation in October 2017, TIA. Patient was recently hospitalized in November 11 with chest pain due to pneumonia. Patient reports that he had one more day of antibiotics left. Reports he is still having some cough and having some chills. He also has been complaining of left-sided chest pain and that worsens with cough. EKG normal sinus rhythm. Troponins were negative 3 sets. Chest x-ray showed partial clearing of the left lower lobe airspace disease. Patient's last stress test he reports as 2 years ago and was normal. Patient was seen by cardiology service and they have scheduled him for a stress echo today. Apparently patient had a seizure when he was downstairs to undergo the stress dobutamine echo. Cardiology nurse practitioner has notified me. That she had witnessed a seizure. Reports that the seizure lasted for about 1 minute. And he is currently in a postictal state. He also had a decrease in oxygen saturation. Please refer to cardiology nurse practitioners for report regarding the seizure. Patient will be given 1 dose of IV Ativan 1 mg. Neurology will be consulted. His chart did report epilepsy as a child. Patient does have a history of alcohol dependency. But he reports no alcohol use for 4 weeks now. Patient had denied any nausea vomiting, bowel movement changes urinary symptoms. And denied any shortness of breath. 11/23/2017 patient has had no further seizures. He'll be transferred out of the ICU today. Still complaining of some episodes of chest discomfort. This afternoon it appears that the pain happened after eating. EKG normal sinus rhythm CT of the chest was negative for PE. EEG showed no seizure activity. Computed tomography scan of the brain was negative. X-ray of the right hip no acute changes and reports correlate for a femoral acetabular impingement. Patient's right hip pain is now resolved. On 11/24/2017 patient is currently resting comfortably bed with no further seizure activity. He has been transferred out of ICU. Still complains of chest discomfort. Cardiology following and has ordered a dobutamine stress test. 11/25/2017 patient still complaining of chest discomfort with cough and taking a deep breath. He underwent a dobutamine stress echo yesterday which was negative for any stress-induced ischemia. Hemoglobin has dropped to 7.7. No evidence of active bleeding. Patient does have a history of GI bleed with esophageal varices and iron deficiency anemia. Patient will receive 1 unit of blood. And GI service will be consulted. Repeat CBC in a.m. Objective - Vital Signs Vital signs: Vital Signs Temp 97.9 F 11/25/17 08:05 Pulse 84 11/25/17 11:28 Resp 18 11/25/17 11:20 BP 107/69 11/25/17 11:20 Pulse Ox 100 11/25/17 11:20 Intake & Output 11/24/17 11/25/17 11/25/17 18:59 06:59 18:59 Intake Total 840 118 Output Total 1700 0 Balance -860 118 Weight 77.9 kg Intake: Oral 840 118 Output: Urine 1700 0 Other: Voiding Method Toilet Toilet Toilet # Voids 2 - Exam Head normocephalic Neck supple Lungs clear to auscultation bilaterally no wheezing or crackles Heart regular rate and rhythm S1-S2, no rub or gallop Abdomen is soft nontender nondistended positive bowel sounds no hepatosplenomegaly Extremities no edema Neuro alert and orientated to 3 - Labs CBC & Chem 7: 11/25/17 06:05 11/25/17 06:05 Labs: Abnormal Lab Results - Last 24 Hours (Table) 11/24/17 11/25/17 11/25/17 Range/Units 21:06 06:05 06:05 RBC 2.93 L (4.30-5.90) m/uL Hgb 7.7 L (13.0-17.5) gm/dL Hct 25.0 L (39.0-53.0) % MCHC 30.7 L (31.0-37.0) g/dL RDW 18.4 H (11.5-15.5) % Plt Count 102 L (150-450) k/uL Glucose 100 H (74-99) mg/dL POC Glucose (mg/dL) 140 H (75-99) mg/dL AST 94 H (17-59) U/L Albumin 3.3 L (3.5-5.0) g/dL 11/25/17 11/25/17 Range/Units 06:15 11:33 RBC (4.30-5.90) m/uL Hgb (13.0-17.5) gm/dL Hct (39.0-53.0) % MCHC (31.0-37.0) g/dL RDW (11.5-15.5) % Plt Count (150-450) k/uL Glucose (74-99) mg/dL POC Glucose (mg/dL) 109 H 110 H (75-99) mg/dL AST (17-59) U/L Albumin (3.5-5.0) g/dL Assessment and Plan Assessment: 1. Chest pain: Troponins negative 3 sets. EKG normal sinus rhythm. Patient seen by cardiology has been ruled out for an acute coronary event. Dobutamine stress test was negative for any ischemia 2. New witnessed seizure prior to patient having dobutamine stress echo. 1 mg of Ativan ordered. Patient does have a history of epilepsy as a child. Patient reports that he stopped taking seizure medications as a teenager. Patient followed by neurology. EEG and computed tomography scan of the brain are normal 3. Recent community-acquired pneumonia chest x-ray showing improvement. Continue with Omnicef 4. History of alcohol dependency. Patient reports it's been about 4 weeks since his last alcoholic beverage. Continue thiamine, multivitamin and folic acid 5. History of paroxysmal atrial fibrillation: Not on anticoagulation due to GI bleed 6. History of pulmonary embolism 7. Diabetes mellitus type 2 continue sliding scale coverage 8. Hyperlipidemia continue statin 9. History of esophageal varices requiring EGD and ligation on 10/21/2017 10. Iron deficiency anemia: Continue iron supplement. total iron 104. Hemoglobin continues trend downwards to 7.7. Patient will be given 1 unit of blood. GI service consulted. Check stool for occult blood. Discontinue Lovenox and aspirin. Monitor for any signs of bleeding. Repeat CBC in a.m. 11. History of TIA 12. Essential hypertension 13. History of COPD stable no evidence of exacerbation 14. Hypokalemia patient received potassium supplement 15. Chronic liver cirrhosis with secondary portal hypertension 16. Thrombocytopenia likely secondary to patient's liver disease 17. Vitamin D insufficiency: Start vitamin D 2000 units daily GI prophylaxis Protonix and DVT prophylaxis SCDs I performed an examination of the patient and discussed their management with the physician Guest Service Representative. I have reviewed the Physician Guest Service Representative's notes and agree with the documented findings and plan of care
[2017-11-25] MEDS ORDERED: FUROSEMIDE 10 MG/ML 2 ML VIAL IV ONE (15:00)
[2017-11-25 16:38] LABS: Glucose,Whole Blood 96 mg/dL (75-99)
[2017-11-25] MEDS: DOCUSATE 100 MG CAP PO PRN (18:56)
--- NOTE | 2017-11-25 20:24 | P.PN ---
Subjective Progress Note Date: 11/25/17 This patient is a 62-year-old male who is being followed today for recent episode of seizure event that occurred just prior to him going for a stress test. Patient was admitted with symptoms of severe chest pain. He was being scheduled by cardiology for a stress test and unfortunately had an event which appeared to be seizure-like. He was evaluated for this condition and underwent a computed tomography scan of the brain which came back negative for any significant abnormality. He suffers only underwent a routine EEG which was reviewed and is normal for his age with no evidence of any epileptiform discharges. The patient also had CT angiogram of the chest which came back negative for pulmonary embolus. He was being followed closely by cardiology and did undergo a dobutamine stress echocardiogram today which was completed and revealed no evidence of cardiac ischemia. Cardiology has signed off and the patient is being considered for discharge home soon. He has had no further seizure-like event since coming to the medical floor. He was transferred out of the ICU yesterday and is currently on selective care. He states his chest pain still seems to wax and wane in terms of intensity. This likely is some form of pleuritic chest pain patient was once again reminded of the [place] driving law which states he cannot drive in the [facility] for appeared of 6 months following a seizure event. He is aware of this restriction. We did review once again his CAT scan and EEG results with him and he is aware of these results. The patient also was updated on the results of his dobutamine stress echo yesterday. As noted it came back with no evidence of cardiac ischemia. The patient was noted to have evidence of acute anemia with a hemoglobin of 7.7. He is being given blood transfusion today at bedside with 1 unit. We will need to recheck his hemoglobin tomorrow. He states he still is experiencing some chest discomfort which seems to respond to use of Narco. Appears his chest pain is noncardiac in nature at this time. He is being followed closely by cardiology for this condition as well. Patient has had no further seizure-like event since admission. We will continue close neurological follow-up for the patient. His overall prognosis at this time remains guarded. Objective - Vital Signs Vital signs: Vital Signs Temp 97.9 F 11/25/17 15:15 Pulse 85 11/25/17 16:01 Resp 18 11/25/17 15:15 BP 97/64 11/25/17 15:15 Pulse Ox 98 11/25/17 15:50 Intake & Output 11/24/17 11/25/17 11/25/17 18:59 06:59 18:59 Intake Total 840 538 Output Total 1700 300 Balance -860 238 Weight 77.9 kg Intake: Oral 840 538 Output: Urine 1700 300 Other: Voiding Method Toilet Toilet Toilet # Voids 2 - Exam Physical examination: PHYSICAL EXAMINATION: Patient is resting comfortably in bed. VITAL SIGNS: Blood pressure is [97/64]. Heart rate is [75]. Respiration is [18] . Temperature is [97.7]. HEENT: Head is atraumatic, neck is supple, there were no carotid bruits. CHEST: Lungs are clear to auscultation and percussion. CARDIAC: S1, S2 normal rate and rhythm. There is no murmur. ABDOMEN: Soft and nontender. Bowel sounds are present. EXTREMITIES: There is no pedal edema. Peripheral pulses are present. Neurological examination: Patient has a nonfocal neurological examination today. - Labs CBC & Chem 7: 11/25/17 06:05 11/25/17 06:05 Labs: Abnormal Lab Results - Last 24 Hours (Table) 11/24/17 11/25/17 11/25/17 Range/Units 21:06 06:05 06:05 RBC 2.93 L (4.30-5.90) m/uL Hgb 7.7 L (13.0-17.5) gm/dL Hct 25.0 L (39.0-53.0) % MCHC 30.7 L (31.0-37.0) g/dL RDW 18.4 H (11.5-15.5) % Plt Count 102 L (150-450) k/uL Glucose 100 H (74-99) mg/dL POC Glucose (mg/dL) 140 H (75-99) mg/dL AST 94 H (17-59) U/L Albumin 3.3 L (3.5-5.0) g/dL Crossmatch 11/25/17 11/25/17 11/25/17 Range/Units 06:15 11:33 15:57 RBC (4.30-5.90) m/uL Hgb (13.0-17.5) gm/dL Hct (39.0-53.0) % MCHC (31.0-37.0) g/dL RDW (11.5-15.5) % Plt Count (150-450) k/uL Glucose (74-99) mg/dL POC Glucose (mg/dL) 109 H 110 H (75-99) mg/dL AST (17-59) U/L Albumin (3.5-5.0) g/dL Crossmatch See Detail Assessment and Plan (1) New onset seizure Current Visit: Yes Status: Acute Code(s): R56.9 - UNSPECIFIED CONVULSIONS SNOMED Code(s): 86816897 (2) Alcohol withdrawal Current Visit: No Status: Acute Code(s): F10.239 - ALCOHOL DEPENDENCE WITH WITHDRAWAL, UNSPECIFIED SNOMED Code(s): 718120053 (3) Chest pain Current Visit: No Status: Acute Code(s): R07.9 - CHEST PAIN, UNSPECIFIED SNOMED Code(s): 74373737 (4) GI bleed Current Visit: No Status: Acute Code(s): K92.2 - GASTROINTESTINAL HEMORRHAGE , UNSPECIFIED SNOMED Code(s): 19426878 Plan: This patient is a 62-year-old male who is being followed for episode of questionable seizure activity prior to stress test. He did undergo a stress test yesterday which did come back negative for any acute ischemia. Today he is noted to have a drop in his hemoglobin is 7.7. He is requiring a transfusion today with one unit of packed red cells. GI has been consulted. He has a history of GI bleeding with esophageal varices and iron deficiency anemia in the past. Neurologically he remains very much intact. He has had no further seizure-like events. As noted his EEG was normal for his age. We will continue close neurological follow-up for the patient during this admission. His overall prognosis at this time remains guarded.
[2017-11-25 20:50] LABS: Glucose,Whole Blood 110 mg/dL (75-99)
[2017-11-26 00:35] VITALS: RESP 18
[2017-11-26 05:49] LABS: Glucose,Whole Blood 101 mg/dL (75-99)
[2017-11-26] MEDS: PANTOPRAZOLE 40 MG TABLET PO SCH (06:27)
[2017-11-26 07:23] LABS: ALT 47 U/L (21-72); AST 99 U/L (17-59); Albumin 3.7 g/dL (3.5-5.0); Alkaline Phosphatase 118 U/L (38-126); Anion Gap 9 mmol/L; Blood Urea Nitrogen 13 mg/dL (9-20); Calcium 8.8 mg/dL (8.4-10.2); Carbon Dioxide 29 mmol/L (22-30); Chloride 101 mmol/L (98-107); Glucose 103 mg/dL (74-99); Potassium 4.4 mmol/L (3.5-5.1); Sodium 139 mmol/L (137-145); Total Protein 7.3 g/dL (6.3-8.2)
[2017-11-26 07:36] LABS: Anisocytosis Slight; Basophils % (A) 1 %; Eosinophils # (A) 0.1 k/uL (0-0.7); Eosinophils % (A) 3 %; HCT 29.7 % (39.0-53.0); Hypochromasia Marked; Lymphocytes # (A) 1.3 k/uL (1.0-4.8); Lymphocytes % (A) 33 %; MCH 27.1 pg (25.0-35.0); MCHC 31.3 g/dL (31.0-37.0); MCV 86.3 fL (80.0-100.0); Mean Platelet Volume 8.5; Monocytes # (A) 0.4 k/uL (0-1.0); Monocytes % (A) 11 %; Neutrophils # (A) 1.9 k/uL (1.3-7.7); Neutrophils % (A) 50 %; Platelet Count 121 k/uL (150-450); Poikilocytosis Slight; RBC 3.43 m/uL (4.30-5.90); RDW 18.2 % (11.5-15.5); WBC 3.9 k/uL (3.8-10.6)
[2017-11-26 07:37] LABS: HGB 9.3 gm/dL (13.0-17.5)
[2017-11-26] MEDS: INSULIN ASPART 100 UNIT/ML 1 ML 10 ML VIAL SQ SCH ×2 (07:39→12:19)
[2017-11-26] MEDS: IPRATROPIUM-ALBUTEROL 3 ML NEB INHALATION PRN ×2 (07:39→11:26)
[2017-11-26] MEDS: FERROUS SULFATE 325 MG TAB PO SCH (08:23)
[2017-11-26] MEDS: FOLIC ACID 1 MG TAB PO SCH (08:23)
[2017-11-26] MEDS: DOCUSATE 100 MG CAP PO PRN (08:23)
[2017-11-26] MEDS: CEFDINIR 300 MG CAP PO SCH (08:23)
[2017-11-26] MEDS: THIAMINE 100 MG TAB PO SCH (08:24)
[2017-11-26] MEDS: MAGNESIUM OXIDE 400 MG TAB PO SCH (08:24)
[2017-11-26] MEDS: MULTIVITAMINS, THERA 1 EACH TAB PO SCH (08:24)
[2017-11-26] MEDS: NADOLOL 20 MG TAB PO SCH (08:24)
--- NOTE | 2017-11-26 09:23 | P.CONS ---
History of Present Illness - Reason for Consult Consult date: 11/26/17 Anemia Requesting physician: Charlette Finney - History of Present Illness 62-year-old male with a history of EtOH abuse not actively drinking, large distal esophageal varices status post recent banding October 2017, portal hypertensive gastropathy, iron deficiency anemia, CVA, A. fib not a candidate for anticoagulation secondary to history of multiple GI bleeds, hypertension, admitted with chills cough recent diagnosis of pneumonia. Consult requested for anemia. Current hemoglobin 9.3. Received 1 unit of blood yesterday. Admission he will and 8.2 relatively stable from previous hemoglobin over the last month ranging between 7.7-9. INR 1.2. Platelet 121. BUN 15. Creatinine 0.8. Transaminases stable total bilirubin 0.7. AST 94. ALT 44. AP 109. Denies overt bleeding such as hematemesis hematochezia melena. Denies abdominal pain. He passed a normal brown colored bowel movement yesterday. Tolerating diet. Hospital medications reviewed maintained on nonselective beta madeline Corgard 20 mg daily, ferrous sulfate daily, folate acid, and Protonix 40 mg twice daily. Last EGD October 22 secondary to hematemesis findings of large distal esophageal varices not actively bleeding at time of exam variceal ligation 5 bands. Review of Systems Constitutional: Denies fever, admitted with chills, denies sweats, weight gain, or loss. HEENT: Negative for migraines, blurred vision or loss, earaches, drainage, tinnitus, oral mucosal lesions, dysphagia, or odynophagia. Cardiac: Negative for chest pain, arrhythmias, or palpitation. Respiratory: Admitted with cough denies hemoptysis, or sputum production. Gastrointestinal: See HPI for pertinent findings. Genitourinary: Negative for hematuria, urgency, frequency, polyuria, dysuria, or penile discharge. Musculoskeletal: Negative for muscle aches, swelling, arthritis, and arthralgias. Neurologic: Negative for stroke or TIA. Endocrine: Negative for thyroid problems. Skin: Negative for rash or itching. Psychiatric: Negative history for depression and anxiety Past Medical History Past Medical History: Atrial Fibrillation, Chest Pain / Angina, COPD, CVA/TIA, Diabetes Mellitus, GERD/Reflux, GI Bleed, Hyperlipidemia, Hypertension, Pulmonary Embolus (PE) Additional Past Medical History / Comment(s): Alcoholism, chronic alcoholic cirrhosis with portal hypertension and previous history of GI bleeding, esophageal varices, diabetes mellitus, hypertension, hyperlipidemia, previous history of childhood seizure which he outgrew not taking any antiepileptic medication, history of atrial fibrillation, history of pulmonary embolism, hypertension, hyperlipidemia, previous history of GI bleed, previous history of CVA without any residual deficits. He also has history of diverticulosis, chronic lower extremity ankle edema, previous history of septicemia, cervical disc disease with chronic back pain, degenerative arthritis involving the lower back, tinnitus History of Any Multi-Drug Resistant Organisms: None Reported Past Surgical History: Appendectomy, Cholecystectomy Additional Past Surgical History / Comment(s): 07/20/17 EGD, 03/21/17 EGD/ colonoscopy, other colonoscopies. Past Anesthesia/Blood Transfusion Reactions: Previous Problems w/ Anesthesia Additional Past Anesthesia/Blood Transfusion Reaction / Comm: after appendix removed sob Past Psychological History: Anxiety, Depression Additional Psychological History / Comment(s): Pt lives in an apartment alone in [facility] . complex has front door ramp and has an elevator. no pets. Sometimes his sister stays with him and cleans his home. He uses a cane to ambulate at times. He drives but currently has no car. He gets to [place] by [employer]. He has a nebulizer. Used to work in [employer]. Relates that he's not been a smoker. Denies recreational drug use. His left him many years ago he has adult children that he does not see very often. No experience. No travel history. No animal exposures Smoking Status: Never smoker Past Alcohol Use History: Occasional Additional Past Alcohol Use History / Comment(s): Pt stated when he was younger he drank heavy but had cut down to occ. pt stated he is trying to quit and has' nt drank in 4 weeks. Past Drug Use History: None Reported - Past Family History Mother Family Medical History: COPD, CVA/TIA, Dementia Additional Family Medical History / Comment(s): from a stroke Father Family Medical History: Pneumonia Additional Family Medical History / Comment(s): Father of pneumonia when he was close to 80 yrs old. Medications and Allergies Home Medications Medication Instructions Recorded Confirmed Type Docusate [Colace] 100 mg PO DAILY PRN #20 capsule 08/27/17 11/21/17 Rx Ferrous Sulfate [Feosol] 325 mg PO DAILY #30 tab 08/27/17 11/21/17 Rx metFORMIN HCL 1,000 mg PO BID 09/23/17 11/21/17 History Magnesium Oxide 400 mg PO DAILY #30 tablet 09/24/17 11/21/17 Rx Aspirin 81 mg PO DAILY #30 chew 10/10/17 11/21/17 Rx Atorvastatin Calcium [Lipitor] 10 mg PO HS #30 tab 10/10/17 11/21/17 Rx Pantoprazole [Protonix] 40 mg PO AC-BID #60 tablet. 10/25/17 11/21/17 Rx Folic Acid 1 mg PO DAILY 11/09/17 11/21/17 History Multivitamins, Thera [Multivitamin 1 tab PO DAILY 11/09/17 11/21/17 History (formulary)] Thiamine [Vitamin B-1] 100 mg PO DAILY 11/09/17 11/21/17 History Cefuroxime Axetil [Ceftin] 500 mg PO BID #20 tab 11/11/17 11/21/17 Rx Nadolol [Corgard] 20 mg PO DAILY #30 tab 11/11/17 11/21/17 Rx Allergies Allergy/AdvReac Type Severity Reaction Status Date / Time adhesive tape Allergy Rash/Hives Verified 11/21/17 12:51 egg AdvReac Nausea & Verified 11/21/17 12:51 Vomiting lisinopril AdvReac EYES Verified 11/21/17 12:51 BURN&ITCH/WEAKNESS tomato AdvReac Nausea & Verified 11/21/17 12:51 Vomiting & Diarrhea Physical Exam Vitals: Vital Signs Temp Pulse Pulse Pulse Resp BP BP 11/26/17 07:55 98.2 F 87 16 135/86 11/26/17 07:51 84 11/26/17 07:41 80 11/26/17 04:00 97.6 F 77 17 132/78 11/26/17 00:00 98.0 F 83 18 155/92 11/25/17 20:43 98.0 F 72 16 112/64 11/25/17 20:00 98.4 F 77 18 112/64 11/25/17 19:30 79 11/25/17 19:22 98.1 F 74 18 115/72 11/25/17 19:18 77 11/25/17 18:52 98.3 F 83 18 117/75 07/12/18 18:42 98.5 F 86 18 112/73 11/25/17 16:01 85 11/25/17 15:50 82 11/25/17 15:15 97.9 F 75 75 18 97/64 11/25/17 11:28 84 11/25/17 11:20 73 73 18 107/69 11/25/17 11:16 80 Pulse Ox 11/26/17 07:55 96 11/26/17 07:51 11/26/17 07:41 97 11/26/17 04:00 97 11/26/17 00:00 97 11/25/17 20:43 95 11/25/17 20:00 95 11/25/17 19:30 11/25/17 19:22 99 11/25/17 19:18 11/25/17 18:52 96 11/25/17 18:42 95 11/25/17 16:01 11/25/17 15:50 98 11/25/17 15:15 96 11/25/17 11:28 11/25/17 11:20 100 11/25/17 11:16 Intake and Output 11/25/17 11/26/17 11/26/17 22:59 06:59 14:59 Intake Total 550 Output Total 300 1000 Balance 250 -1000 Intake: Oral 240 Blood Product 310 Rc As-1 Unit 310 [id number] Output: Urine 300 1000 Other: Voiding Method Toilet Toilet Toilet Weight 77.6 kg General appearance: The patient is alert, oriented, in no acute distress. HET: Head is normocephalic and atraumatic. Pupils are equal and reactive. Oropharynx is clear without lesions. Neck: Supple without lymphadenopathy. Trachea midline. Heart: S1 S2. Regular rate and rhythm. Lungs: No crackles or wheezes are heard. Abdomen: Soft, nontender, nondistended with bowel sounds. No peritoneal signs. No palpable organomegaly or masses. Extremities: Normal skin color and turgor. No cyanosis, rash, ulceration, clubbing, or edema. Radial and pedal pulses are 2/4 bilaterally. Neurological: No focal deficits. Strength and sensation are grossly intact. Results CBC & Chem 7: 11/26/17 06:47 11/26/17 06:47 Labs: Abnormal Lab Results - Last 24 Hours (Table) 11/25/17 11/25/17 11/25/17 Range/Units 11:33 15:57 20:47 RBC (4.30-5.90) m/uL Hgb (13.0-17.5) gm/dL Hct (39.0-53.0) % RDW (11.5-15.5) % Plt Count (150-450) k/uL Glucose (74-99) mg/dL POC Glucose (mg/dL) 110 H 110 H (75-99) mg/dL AST (17-59) U/L Crossmatch See Detail 11/26/17 11/26/17 11/26/17 Range/Units 05:46 06:47 06:47 RBC 3.43 L (4.30-5.90) m/uL Hgb 9.3 L D (13.0-17.5) gm/dL Hct 29.7 L (39.0-53.0) % RDW 18.2 H (11.5-15.5) % Plt Count 121 L (150-450) k/uL Glucose 103 H (74-99) mg/dL POC Glucose (mg/dL) 101 H (75-99) mg/dL AST 99 H (17-59) U/L Crossmatch Assessment and Plan (1) Anemia Narrative/Plan: Acute on chronic anemia no evidence of active GI bleeding with a history of portal gastropathy distal esophageal varices with recent EGD 1 month ago variceal banding 5 with a history of remote EtOH abuse. Current Visit: No Status: Acute Code(s): D64.9 - ANEMIA, UNSPECIFIED SNOMED Code(s): 624456903 (2) Portal hypertension Current Visit: Yes Status: Acute Code(s): K76.6 - PORTAL HYPERTENSION SNOMED Code(s): 72754388 (3) ETOH abuse Current Visit: No Status: Acute Code(s): F10.10 - ALCOHOL ABUSE, UNCOMPLICATED SNOMED Code(s): 42766725 (4) Esophageal varices Current Visit: No Status: Acute Code(s): I85.00 - ESOPHAGEAL VARICES WITHOUT BLEEDING SNOMED Code(s): 39431439 Plan: 1. Inpatient EGD not planned at this time. Continue Corgard 20 g daily Protonix 40 mg twice daily. Daily CBC. Diet as tolerated. Continue with EtOH abstinence. Follow-up in office in 3-4 weeks for reevaluation. We'll follow closely with you. Thank you for this kind referral and the opportunity to participate in the care of your patient. This consultation was discussed with Dr. Mcdowell. The impression and plan of care have been directed as dictated.
[2017-11-26] MEDS ORDERED: LACTULOSE 20 GM/30 ML CUP PO ONE (10:00)
[2017-11-26 11:36] LABS: Glucose,Whole Blood 108 mg/dL (75-99)
--- NOTE | 2017-11-26 11:59 | P.DS ---
Providers Date of admission: 11/22/17 16:07 Expected date of discharge: 11/26/17 Attending physician: Charlette Finney Consults: 11/21/17 14:16 Consult Physician Urgent Consulting Provider: [facility] Consult Reason/Comments: Chest pain Do you want consulting provider notified?: Yes 11/22/17 10:55 Consult Physician Routine Consulting Provider: Corrine Alexis Consult Reason/Comments: new seizure Do you want consulting provider notified?: Yes 11/22/17 12:39 Consult Physician Routine Consulting Provider: Mellisa Rae Consult Reason/Comments: ICU managment Do you want consulting provider notified?: Yes 11/25/17 14:17 Consult Physician Routine Consulting Provider: Gabbi Sheehan Consult Reason/Comments: anemia Do you want consulting provider notified?: Yes Primary care physician: Yoon Phillips [facility] Course: Discharge diagnosis 1. Chest pain: Troponins negative 3 sets. EKG normal sinus rhythm. Patient seen by cardiology has been ruled out for an acute coronary event. Dobutamine stress test was negative for any ischemia 2. New witnessed seizure prior to patient having dobutamine stress echo. 1 mg of Ativan ordered. Patient does have a history of epilepsy as a child. Patient reports that he stopped taking seizure medications as a teenager. Patient followed by neurology. EEG and computed tomography scan of the brain are normal 3. Recent community-acquired pneumonia chest x-ray showing improvement. Completed antibiotic course 4. History of alcohol dependency. Patient reports it's been about 4 weeks since his last alcoholic beverage. Continue thiamine, multivitamin and folic acid 5. History of paroxysmal atrial fibrillation: Not on anticoagulation due to GI bleed 6. History of pulmonary embolism 7. Diabetes mellitus type 2 continue sliding scale coverage 8. Hyperlipidemia continue statin 9. History of esophageal varices requiring EGD and ligation on 10/21/2017 10. Iron deficiency anemia: Continue iron supplement. total iron 104. Hemoglobin continues trend downwards to 7.7. Patient will be given 1 unit of blood. Hemoglobin 9.3 after blood transfusion. Patient has had no active signs of bleeding. Seen by GI service. No intervention required. Continue iron supplement. Continue to hold aspirin. Will have patient follow-up with GI service outpatient. 11. History of TIA 12. Essential hypertension 13. History of COPD stable no evidence of exacerbation 14. Hypokalemia patient received potassium supplement 15. Chronic liver cirrhosis with secondary portal hypertension 16. Thrombocytopenia likely secondary to patient's liver disease 17. Vitamin D insufficiency: Start vitamin D 2000 units daily Hospital course This is a 62-year-old male, patient of [facility]. He has a known past medical history of atrial fibrillation and not on anticoagulation due to previous GI bleed, COPD, diabetes mellitus type 2, hyperlipidemia, hypertension , PE, esophageal varices with bleeding requiring EGD and ligation in October 2017, TIA. Patient was recently hospitalized in November 11 with chest pain due to pneumonia. Patient reports that he had one more day of antibiotics left. Reports he is still having some cough and having some chills. He also has been complaining of left-sided chest pain and that worsens with cough. EKG normal sinus rhythm. Troponins were negative 3 sets. Chest x-ray showed partial clearing of the left lower lobe airspace disease. Patient's last stress test he reports as 2 years ago and was normal. Patient was seen by cardiology service and they have scheduled him for a stress echo today. Apparently patient had a seizure when he was downstairs to undergo the stress dobutamine echo. Cardiology nurse practitioner has notified me. That she had witnessed a seizure. Reports that the seizure lasted for about 1 minute. And he is currently in a postictal state. He also had a decrease in oxygen saturation. Please refer to cardiology nurse practitioners for report regarding the seizure. Patient will be given 1 dose of IV Ativan 1 mg. Neurology will be consulted. His chart did report epilepsy as a child. Patient does have a history of alcohol dependency. But he reports no alcohol use for 4 weeks now. Patient had denied any nausea vomiting, bowel movement changes urinary symptoms. And denied any shortness of breath. 11/23/2017 patient has had no further seizures. He'll be transferred out of the ICU today. Still complaining of some episodes of chest discomfort. This afternoon it appears that the pain happened after eating. EKG normal sinus rhythm CT of the chest was negative for PE. EEG showed no seizure activity. Computed tomography scan of the brain was negative. X-ray of the right hip no acute changes and reports correlate for a femoral acetabular impingement. Patient's right hip pain is now resolved. On 11/24/2017 patient is currently resting comfortably bed with no further seizure activity. He has been transferred out of ICU. Still complains of chest discomfort. Cardiology following and has ordered a dobutamine stress test. 11/25/2017 patient still complaining of chest discomfort with cough and taking a deep breath. He underwent a dobutamine stress echo yesterday which was negative for any stress-induced ischemia. Hemoglobin has dropped to 7.7. No evidence of active bleeding. Patient does have a history of GI bleed with esophageal varices and iron deficiency anemia. Patient will receive 1 unit of blood. And GI service will be consulted. Repeat CBC in a.m. 11/26/2017 patient is medically stable for discharge today. He has been cleared by consulting physicians for discharge. He did receive 1 unit of blood yesterday and hemoglobin has increased to 9.3. He's had no active signs of bleeding. Patient seen by GI service they're recommending follow-up outpatient in 3-4 weeks. Also recommending to continue the Corgard 20 mg daily and Protonix 40 mg twice a day. Continue with alcohol abstinence. Patient is had no further episodes of seizure. Neurology did not order any seizure medication. He required 1 dose of Ativan for the seizure during this admission. Patient is aware that he cannot drive for 6 months according to [place] law after seizure. Patient's chest pain is improving. If likely more musculoskeletal and pleuritic related to his cough. Patient completed treatment for his pneumonia. Cough is improving. He Use Tylenol 1 Tablet Every 6 Hours As Needed for Pain, Do Not Exceed over 2 G in a 24-Hour Period. Lipitor also placed on hold during this admission. His AST did increase to 108. At discharge is 99. Close to patient's baseline. He does have known underlying liver cirrhosis likely contributing to his mildly elevated LFTs. Patient medically stable for discharge. Please refer to chart for any further details. I performed an examination of the patient and discussed their management with the physician Landmen. I have reviewed the Physician Landmen's notes and agree with the documented findings and plan of care Patient Condition at Discharge: Stable Plan - Discharge Summary Discharge Rx Participant: Yes New Discharge Prescriptions: New Cholecalciferol [Vitamin D3] 2,000 unit PO DAILY@1200 #30 tab Continue Docusate [Colace] 100 mg PO DAILY PRN #20 capsule PRN Reason: Constipation Ferrous Sulfate [Feosol] 325 mg PO DAILY #30 tab metFORMIN HCL 1,000 mg PO BID Magnesium Oxide 400 mg PO DAILY #30 tablet Pantoprazole [Protonix] 40 mg PO AC-BID #60 tablet. Folic Acid 1 mg PO DAILY Multivitamins, Thera [Multivitamin (formulary)] 1 tab PO DAILY Thiamine [Vitamin B-1] 100 mg PO DAILY Nadolol [Corgard] 20 mg PO DAILY #30 tab Discontinued Aspirin 81 mg PO DAILY #30 chew Atorvastatin Calcium [Lipitor] 10 mg PO HS #30 tab Cefuroxime Axetil [Ceftin] 500 mg PO BID #20 tab Discharge Medication List Docusate [Colace] 100 mg PO DAILY PRN #20 capsule 08/27/17 [Rx] Ferrous Sulfate [Feosol] 325 mg PO DAILY #30 tab 08/27/17 [Rx] metFORMIN HCL 1,000 mg PO BID 09/23/17 [History] Magnesium Oxide 400 mg PO DAILY #30 tablet 09/24/17 [Rx] Pantoprazole [Protonix] 40 mg PO AC-BID #60 tablet. 10/25/17 [Rx] Folic Acid 1 mg PO DAILY 11/09/17 [History] Multivitamins, Thera [Multivitamin (formulary)] 1 tab PO DAILY 11/09/17 [History ] Thiamine [Vitamin B-1] 100 mg PO DAILY 11/09/17 [History] Nadolol [Corgard] 20 mg PO DAILY #30 tab 11/11/17 [Rx] Cholecalciferol [Vitamin D3] 2,000 unit PO DAILY@1200 #30 tab 11/26/17 [Rx] Follow up Appointment(s)/Referral(s): Corrine Alexis MD [STAFF PHYSICIAN] - 1 Week Yoon Phillips DO [Primary Care Provider] - 12/01/17 11:00 am ([phone] [facility] Wednesday) Kamila Srinivasan PAC [REFERRING] - 12/14/17 11:00 am [facility] Visiting Nurse, [NON-STAFF] - 1 Week () Ambulatory/Diagnostic Orders: Complete Blood Count w/diff [LAB.AMB] Time Frame: 1 Week, Location: None Selected Comprehensive Metabolic Panel [LAB.AMB] Time Frame: 1 Week, Location: None Selected Activity/Diet/Wound Care/Special Instructions: Diet: cardiac Activity: as tolerated Okay to use Tylenol [id number] 1 tab every 6 hours as needed for pain. Do not exceed more than 2 g in a 24-hour period check CMP and CBC in 1 week Discharge Disposition: HOME WITH HOME HEALTH SERVICES
[2017-11-26] MEDS ORDERED: CHOLECALCIFEROL 1,000 UNIT TAB PO SCH (12:00)
[2017-11-26 13:07] VITALS: BP 114/72; PULSE 84; TEMP 98.4
--- NOTE | 2017-11-26 13:12 | P.PN ---
Subjective Progress Note Date: 11/26/17 This is a pleasant 62-year-old gentleman with a past medical history significant for chronic alcohol use, diabetes, hypertension, dyslipidemia presented to the hospital with a chest discomfort. He was seen and evaluated yesterday by Dr. Kulkarni who felt that the chest discomfort was quite atypical. A stress test was ordered, but while in the stress test patient had what appeared to be seizure. EEG was negative for any seizure activity. Today the patient overall feels well, he continues to have chest discomfort is very pleuritic in nature. He underwent a dobutamine stress echocardiogram yesterday that was negative for ischemia. Objective - Vital Signs Vital signs: Vital Signs Temp 98.2 F 11/26/17 07:55 Pulse 80 11/26/17 11:38 Resp 18 11/26/17 07:55 BP 135/86 11/26/17 07:55 Pulse Ox 96 11/26/17 07:55 Intake & Output 11/25/17 11/26/17 11/26/17 18:59 06:59 18:59 Intake Total 538 310 180 Output Total 300 1000 Balance 238 -690 180 Weight 77.6 kg Intake: Oral 538 180 Blood Product 0 310 Rc As-1 Unit 0 310 [id number] Output: Urine 300 1000 Other: Voiding Method Toilet Toilet Toilet - Exam PHYSICAL EXAMINATION: HEENT: Head is atraumatic, normocephalic. Pupils equal, round. Neck is supple. There is no elevated jugular venous pressure. HEART EXAMINATION: Heart sounds regular, S1 and S2 normal. No murmur or gallop heard. CHEST EXAMINATION: Lungs are clear to auscultation and precussion. No chest wall tenderness is noted on palpation or with deep breathing. ABDOMEN: Soft, nontender. Bowel sounds are heard. No organomegaly noted. EXTREMITIES: 2+ peripheral pulses with no evidence of peripheral edema and no calf tenderness noted. NEUROLOGIC patient is awake, alert and oriented x3. . - Labs CBC & Chem 7: 11/26/17 06:47 11/26/17 06:47 Labs: Abnormal Lab Results - Last 24 Hours (Table) 11/25/17 11/25/17 11/26/17 Range/Units 15:57 20:47 05:46 RBC (4.30-5.90) m/uL Hgb (13.0-17.5) gm/dL Hct (39.0-53.0) % RDW (11.5-15.5) % Plt Count (150-450) k/uL Glucose (74-99) mg/dL POC Glucose (mg/dL) 110 H 101 H (75-99) mg/dL AST (17-59) U/L Crossmatch See Detail 11/26/17 11/26/17 11/26/17 Range/Units 06:47 06:47 11:24 RBC 3.43 L (4.30-5.90) m/uL Hgb 9.3 L D (13.0-17.5) gm/dL Hct 29.7 L (39.0-53.0) % RDW 18.2 H (11.5-15.5) % Plt Count 121 L (150-450) k/uL Glucose 103 H (74-99) mg/dL POC Glucose (mg/dL) 108 H (75-99) mg/dL AST 99 H (17-59) U/L Crossmatch Assessment and Plan Assessment: #1 chest pain with normal dobutamine stress echocardiogram #2 seizure disorder. The patient has history of childhood seizures and he has been seizure free for many years and currently he is in the ICU for a single bout of seizure occurred this afternoon that was treated with Ativan. The CT scan of the brain was within normal limits. The EEG was also within normal. The patient is not having any further episodes of seizures and the patient was not offered any anticonvulsant therapy at this point in time. #3 alcoholism #4 chronic liver cirrhosis with secondary portal hypertension previous history of GI bleed #5 CVA without any residual deficits #6 diabetes mellitus #7 hypertension #8 hyperlipidemia #9 previous history of PE #10 cervical disc disease with chronic neck pain #11 chronic back pain #12 history of atrial fibrillation current rhythm is sinus Plan: From cardiology's perspective, patient may be discharged home. He'll follow-up as an outpatient. [employer]OR note has been reviewed, I agree with a documented findings and plan of care. Patient was seen and examined.
== END 2017-11-26 13:33 | disposition home health service (06) | DRG 100 ==
LOC: EC 12:00 → 3OBS 14:17 → 6ICU 11-22 11:14 → OBSVTOIN 11-22 16:07 → 6SEL 11-23 16:50
PROVIDERS: ADMIT Internal Medicine; ATTEND Internal Medicine
DX: R56.9 Unspecified convulsions (principal); J18.9 Pneumonia, unspecified organism; E87.1 Hypo-osmolality and hyponatremia; J44.0 Chronic obstructive pulmonary disease with (acute) lower respiratory infection; K76.6 Portal hypertension; F10.239 Alcohol dependence with withdrawal, unspecified; R07.81 Pleurodynia; R07.89 Other chest pain; I48.0 Paroxysmal atrial fibrillation; E11.9 Type 2 diabetes mellitus without complications; D50.9 Iron deficiency anemia, unspecified; D69.59 Other secondary thrombocytopenia; E55.9 Vitamin D deficiency, unspecified; E78.5 Hyperlipidemia, unspecified; E87.6 Hypokalemia; F41.9 Anxiety disorder, unspecified; F32.9 Major depressive disorder, single episode, unspecified; K21.9 Gastro-esophageal reflux disease without esophagitis; K59.00 Constipation, unspecified; K70.30 Alcoholic cirrhosis of liver without ascites; M50.90 Cervical disc disorder, unspecified, unspecified cervical region; G89.29 Other chronic pain; I10 Essential (primary) hypertension; M41.9 Scoliosis, unspecified; Z86.711 Personal history of pulmonary embolism; Z82.3 Family history of stroke; Z79.899 Other long term (current) drug therapy; Z79.84 Long term (current) use of oral hypoglycemic drugs; Z79.82 Long term (current) use of aspirin; Z82.5 Family history of asthma and other chronic lower respiratory diseases; Z86.73 Personal history of transient ischemic attack (TIA), and cerebral infarction without residual deficits; Z87.19 Personal history of other diseases of the digestive system; Z71.41 Alcohol abuse counseling and surveillance of alcoholic
CPT/HCPCS: 36415; 70450; 71046; 71275; 73502; 80053; 80061; 82306; 82550; 82553; 82728; 83540; 83550; 83735; 84100; 84132; 84484; 85025; 85610; 85730; 86850; 86900; 86901; 86920; 93005; 93351; 94640; 94760; 95816; 96374; 99285

== ENCOUNTER 2017-12-06 21:39 | Inpatient (IN) | payer OTHER ==
--- NOTE | 2017-12-06 21:46 | ED ---
General Adult HPI - General Stated complaint: ETOH withdrawal Time Seen by Provider: 12/06/17 21:46 - History of Present Illness Initial comments: Lina is a 62-year-old male with a history of alcohol abuse as well as chronic chest pain and a distant history of epilepsy. The patient presents the emergency department today via EMS for evaluation of a possible seizure. Patient reports that he was having chest pain throughout the day today. He reports that he began having palpitations and was feeling very shaky when he began walking down the hallway at his apartment complex. Patient reports that he was then noticed to collapse to the ground, he does not recall this however it was witnessed and a witness called 911. Patient reports he doesn't recall the event. He does not recall waking up. His next memory was while in route to the hospital in the ambulance. Patient denies any tongue biting or loss of bowel or bladder continence. He reports he has not had a seizure since she was a child. Patient does express concern that he may be withdrawing from alcohol as he was drinking 3 days ago, and addition he states that he had recently been drinking every day and he does have a history of alcohol abuse and withdrawal the past. On arrival patient reports he still feels shaky and is experiencing severe chest pain. Patient reports that he has had this chest pain for months and he has been evaluated multiple times with no cause of this chest pain. - Related Data Home Medications Medication Instructions Recorded Confirmed metFORMIN HCL 1,000 mg PO BID 09/23/17 12/06/17 Folic Acid 1 mg PO DAILY 11/09/17 12/06/17 Multivitamins, Thera [Multivitamin 1 tab PO DAILY 11/09/17 12/06/17 (formulary)] Thiamine [Vitamin B-1] 100 mg PO DAILY 11/09/17 12/06/17 Albuterol Nebulized [Ventolin 2.5 mg INHALATION RT-Q6H PRN 12/06/17 12/06/17 Nebulized] Previous Rx's Medication Instructions Recorded Docusate [Colace] 100 mg PO DAILY PRN #20 capsule 08/27/17 Ferrous Sulfate [Feosol] 325 mg PO DAILY #30 tab 08/27/17 Magnesium Oxide 400 mg PO DAILY #30 tablet 09/24/17 Pantoprazole [Protonix] 40 mg PO AC-BID #60 tablet. 10/25/17 Nadolol [Corgard] 20 mg PO DAILY #30 tab 11/11/17 Cholecalciferol [Vitamin D3] 2,000 unit PO DAILY@1200 #30 tab 11/26/17 Allergies Allergy/AdvReac Type Severity Reaction Status Date / Time adhesive tape Allergy Rash/Hives Verified 12/06/17 22:47 egg AdvReac Nausea & Verified 12/06/17 22:47 Vomiting lisinopril AdvReac EYES Verified 12/06/17 22:47 BURN&ITCH/WEAKNESS tomato AdvReac Nausea & Verified 12/06/17 22:47 Vomiting & Diarrhea Review of Systems ROS Statement: Those systems with pertinent positive or pertinent negative responses have been documented in the HPI. ROS Other: All systems not noted in ROS Statement are negative. Past Medical History Past Medical History: Atrial Fibrillation, Chest Pain / Angina, COPD, CVA/TIA, Diabetes Mellitus, GERD/Reflux, GI Bleed, Hyperlipidemia, Hypertension, Pulmonary Embolus (PE) Additional Past Medical History / Comment(s): Alcoholism, chronic alcoholic cirrhosis with portal hypertension and previous history of GI bleeding, esophageal varices, diabetes mellitus, hypertension, hyperlipidemia, previous history of childhood seizure which he outgrew not taking any antiepileptic medication, history of atrial fibrillation, history of pulmonary embolism, hypertension, hyperlipidemia, previous history of GI bleed, previous history of CVA without any residual deficits. He also has history of diverticulosis, chronic lower extremity ankle edema, previous history of septicemia, cervical disc disease with chronic back pain, degenerative arthritis involving the lower back, tinnitus History of Any Multi-Drug Resistant Organisms: None Reported Past Surgical History: Appendectomy, Cholecystectomy Additional Past Surgical History / Comment(s): 07/20/17 EGD, 03/21/17 EGD/ colonoscopy, other colonoscopies. Past Anesthesia/Blood Transfusion Reactions: Previous Problems w/ Anesthesia Additional Past Anesthesia/Blood Transfusion Reaction / Comment(s): after appendix removed sob Past Psychological History: Anxiety, Depression Additional Psychological History / Comment(s): Pt lives in an apartment alone in [facility] . complex has front door ramp and has an elevator. no pets. Sometimes his sister stays with him and cleans his home. He uses a cane to ambulate at times. He drives but currently has no car. [facility]. He has a nebulizer. 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 Relates that he's not been a smoker. Denies recreational drug use. His left him many years ago he has adult children that he does not see very often. No experience. No travel history. No animal exposures Smoking Status: Never smoker Past Alcohol Use History: Occasional Additional Past Alcohol Use History / Comment(s): Pt stated when he was younger he drank heavy but had cut down to occ. pt stated he is trying to quit and has' nt drank in 4 weeks. Past Drug Use History: None Reported - Past Family History Mother Family Medical History: COPD, CVA/TIA, Dementia Additional Family Medical History / Comment(s): from a stroke Father Family Medical History: Pneumonia Additional Family Medical History / Comment(s): Father of pneumonia when he was close to 80 yrs old. General Exam Limitations: no limitations General appearance: alert, anxious Head exam: Present: atraumatic Eye exam: Present: normal appearance, PERRL ENT exam: Present: normal exam Neck exam: Present: full ROM Respiratory exam: Absent: respiratory distress Cardiovascular Exam: Present: tachycardia GI/Abdominal exam: Present: soft. Absent: distended Rectal exam: Present: deferred Extremities exam: Present: full ROM Back exam: Present: full ROM Neurological exam: Present: alert, oriented X3, other (Tremor) Psychiatric exam: Present: anxious Skin exam: Present: warm, dry Course Vital Signs 12/06/17 12/07/17 12/07/17 21:41 00:06 03:23 Temperature 98.1 F 98.5 F Pulse Rate 105 H 93 94 Respiratory 20 18 16 Rate Blood Pressure 165/95 149/83 170/95 O2 Sat by Pulse 94 L 97 94 L Oximetry EKG Findings - EKG Comments: EKG Findings:: EKG at 2219, rate is 97, rhythm is sinus, normal axis, normal intervals, OK 168, QRS 74, QTC 467. There is no evidence of acute ischemia or infarction. Medical Decision Making - Medical Decision Making The patient was seen and evaluated, history was obtained from the patient and review of medical record with a distant seizure history not currently on any antiepileptics, also history of alcohol abuse reports recently he had been drinking frequently his last drink was 3 days ago. Patient reports he became very shaky and collapsed. Uncertain if he had a seizure. Does not recall the event. Cardiac workup as well as lactic acid were ordered to evaluate for possible seizure Troponin was negative, d-dimer was elevated patient was noted to be tachycardic as well as dyspneic with oxygen saturation low 90s. Decision was made to scan for possible pulmonary embolism as this could have precipitated a syncopal event. Lactic acid was noted to be elevated, uncertain if this is related to alcohol abuse or possible seizure activity Patient continues to complain of tremors and 10 out of 10 chest pain which has been constant for 2 months. His EKG reveals no acute findings. Patient care was discussed with Dr. Finney subsequent admission for chest pain and seizure versus syncope. - Lab Data Result diagrams: 12/06/17 21:46 12/06/17 21:46 Lab Results 12/06/17 12/06/17 12/06/17 Range/Units 21:46 21:46 21:46 WBC 4.6 (3.8-10.6) k/uL RBC 3.65 L (4.30-5.90) m/uL Hgb 9.9 L (13.0-17.5) gm/dL Hct 31.8 L (39.0-53.0) % MCV 87.0 (80.0-100.0) fL MCH 27.1 (25.0-35.0) pg MCHC 31.2 (31.0-37.0) g/dL RDW 18.1 H (11.5-15.5) % Plt Count 291 D (150-450) k/uL Neutrophils % 59 % Lymphocytes % 29 % Monocytes % 8 % Eosinophils % 1 % Basophils % 1 % Neutrophils # 2.7 (1.3-7.7) k/uL Lymphocytes # 1.4 (1.0-4.8) k/uL Monocytes # 0.4 (0-1.0) k/uL Eosinophils # 0.1 (0-0.7) k/uL Basophils # 0.0 (0-0.2) k/uL Hypochromasia Marked Anisocytosis Slight PT (9.0-12.0) sec INR (<1.2) APTT (22.0-30.0) sec D-Dimer (<0.60) mg/L FEU Sodium 145 (137-145) mmol/L Potassium 4.4 (3.5-5.1) mmol/L Chloride 109 H (98-107) mmol/L Carbon Dioxide 25 (22-30) mmol/L Anion Gap 11 mmol/L BUN 9 (9-20) mg/dL Creatinine 0.70 (0.66-1.25) mg/dL Est GFR (CKD-EPI)AfAm >90 (>60 ml/min/1.73 sqM) Est GFR (CKD-EPI)NonAf >90 (>60 ml/min/1.73 sqM) Glucose 132 H (74-99) mg/dL Lactic Ac Sepsis Rflx Plasma Lactic Acid Hitesh (0.7-2.0) mmol/L Calcium 8.6 (8.4-10.2) mg/dL Magnesium 1.4 L (1.6-2.3) mg/dL Total Bilirubin 0.4 (0.2-1.3) mg/dL AST 105 H (17-59) U/L ALT 62 (21-72) U/L Alkaline Phosphatase 170 H (38-126) U/L Total Creatine Kinase 85 (55-170) U/L CK-MB (CK-2) 0.4 (0.0-2.4) ng/mL CK-MB (CK-2) Rel Index 0.5 Troponin I <0.012 (0.000-0.034) ng/mL Total Protein 7.2 (6.3-8.2) g/dL Albumin 3.5 (3.5-5.0) g/dL 12/06/17 12/06/17 12/06/17 Range/Units 21:46 21:46 22:30 WBC (3.8-10.6) k/uL RBC (4.30-5.90) m/uL Hgb (13.0-17.5) gm/dL Hct (39.0-53.0) % MCV (80.0-100.0) fL MCH (25.0-35.0) pg MCHC (31.0-37.0) g/dL RDW (11.5-15.5) % Plt Count (150-450) k/uL Neutrophils % % Lymphocytes % % Monocytes % % Eosinophils % % Basophils % % Neutrophils # (1.3-7.7) k/uL Lymphocytes # (1.0-4.8) k/uL Monocytes # (0-1.0) k/uL Eosinophils # (0-0.7) k/uL Basophils # (0-0.2) k/uL Hypochromasia Anisocytosis PT 11.9 (9.0-12.0) sec INR 1.3 H (<1.2) APTT 27.0 (22.0-30.0) sec D-Dimer 1.42 H (<0.60) mg/L FEU Sodium (137-145) mmol/L Potassium (3.5-5.1) mmol/L Chloride (98-107) mmol/L Carbon Dioxide (22-30) mmol/L Anion Gap mmol/L BUN (9-20) mg/dL Creatinine (0.66-1.25) mg/dL Est GFR (CKD-EPI)AfAm (>60 ml/min/1.73 sqM) Est GFR (CKD-EPI)NonAf (>60 ml/min/1.73 sqM) Glucose (74-99) mg/dL Lactic Ac Sepsis Rflx Y Plasma Lactic Acid Hitesh 2.3 H* (0.7-2.0) mmol/L Calcium (8.4-10.2) mg/dL Magnesium (1.6-2.3) mg/dL Total Bilirubin (0.2-1.3) mg/dL AST (17-59) U/L ALT (21-72) U/L Alkaline Phosphatase (38-126) U/L Total Creatine Kinase (55-170) U/L CK-MB (CK-2) (0.0-2.4) ng/mL CK-MB (CK-2) Rel Index Troponin I (0.000-0.034) ng/mL Total Protein (6.3-8.2) g/dL Albumin (3.5-5.0) g/dL Disposition Clinical Impression: Seizure, Lactic acidosis, Chest pain Disposition: ADMITTED IP TO THIS [facility] Condition: Good Decision Time: 00:30
[2017-12-06] MEDS ORDERED: ASPIRIN 81 MG PO STA (22:01)
[2017-12-06 22:19] LABS: Anisocytosis Slight; Basophils % (A) 1 %; Eosinophils # (A) 0.1 k/uL (0-0.7); Eosinophils % (A) 1 %; HCT 31.8 % (39.0-53.0); HGB 9.9 gm/dL (13.0-17.5); Hypochromasia Marked; Lymphocytes # (A) 1.4 k/uL (1.0-4.8); Lymphocytes % (A) 29 %; MCH 27.1 pg (25.0-35.0); MCHC 31.2 g/dL (31.0-37.0); Mean Platelet Volume 7.1; Monocytes # (A) 0.4 k/uL (0-1.0); Monocytes % (A) 8 %; Neutrophils # (A) 2.7 k/uL (1.3-7.7); Neutrophils % (A) 59 %; RBC 3.65 m/uL (4.30-5.90); RDW 18.1 % (11.5-15.5); WBC 4.6 k/uL (3.8-10.6)
[2017-12-06 22:22] LABS: Platelet Count 291 k/uL (150-450)
[2017-12-06 22:27] LABS: ALT 62 U/L (21-72); AST 105 U/L (17-59); Albumin 3.5 g/dL (3.5-5.0); Alkaline Phosphatase 170 U/L (38-126); Anion Gap 11 mmol/L; Blood Urea Nitrogen 9 mg/dL (9-20); Calcium 8.6 mg/dL (8.4-10.2); Carbon Dioxide 25 mmol/L (22-30); Chloride 109 mmol/L (98-107); Glucose 132 mg/dL (74-99); Magnesium 1.4 mg/dL (1.6-2.3); Potassium 4.4 mmol/L (3.5-5.1); Sodium 145 mmol/L (137-145); Total Bilirubin 0.4 mg/dL (0.2-1.3); Total Protein 7.2 g/dL (6.3-8.2)
[2017-12-06 22:35] LABS: INR 1.3 (<1.2); Prothrombin Time 11.9 sec (9.0-12.0)
[2017-12-06 22:38] LABS: Creatine Kinase 85 U/L (55-170)
[2017-12-06 22:51] LABS: D-Dimer 1.42 mg/L FEU (<0.60)
[2017-12-06 22:52] LABS: Creatine Kinase MB 0.4 ng/mL (0.0-2.4); Troponin I <0.012 ng/mL (0.000-0.034)
--- NOTE | 2017-12-06 23:06 | XR ---
EXAMINATION TYPE: XR chest 2V DATE OF EXAM: 12/06/2017 COMPARISON: 11/21/2017 HISTORY: Tremors and syncope TECHNIQUE: Frontal and lateral views of the chest are obtained. FINDINGS: Heart is normal. Lungs are clear of consolidation. There are no hilar masses. There are sm all calcified granuloma in the left midlung. There is no pleural effusion. IMPRESSION: No active cardiopulmonary disease. Minimal pulmonary fibrotic changes. No change.
--- NOTE | 2017-12-06 23:43 | CT ---
EXAMINATION TYPE: CT chest angio for PE DATE OF EXAM: 12/06/2017 COMPARISON: 11/22/2017 HISTORY: Prior on synapse, weakness, syncope, SOB, elevated d-dimer R/O PE CT DLP: 293.90 mGycm Automated exposure control for dose reduction was used. CONTRAST: CT Chest for pulmonary embolism performed with with IV Contrast, patient injected with 80 mL of Isovu e 370. FINDINGS: There are 3-D post processed images. There is mild subpleural interstitial density in the lungs. There is no pulmonary consolidation. Ther e is no evidence of a pulmonary mass. There is tiny calcified granuloma in the left lower lobe. Heart size is normal. There is no pericardial effusion. There is no pleural effusion. I see no filling def ects in the pulmonary arteries. There are no hilar masses. There is no mediastinal adenopathy. Thorac ic aorta is intact without evidence of aneurysm or dissection. There is spurring in the thoracic spin e. There is 25% anterior wedging of T4 vertebra. IMPRESSION: Pulmonary interstitial fibrotic changes. No evidence of pulmonary embolism. No change compared to las t exam.
[2017-12-06] MEDS ORDERED: SODIUM CHLORIDE 0.9% 1,000 ML IV ONE (23:56)
[2017-12-06] MEDS ORDERED: LORazepam 1 MG TAB PO STA (23:57)
[2017-12-07] MEDS ORDERED: IBUPROFEN 400 MG TAB PO PRN (00:53)
[2017-12-07] MEDS ORDERED: NALOXONE 0.4 MG/ML 1 ML VIAL IV PRN (00:53)
[2017-12-07] MEDS ORDERED: LORazepam 2 MG/ML INJ IV PRN ×3 (00:55)
[2017-12-07] MEDS ORDERED: THIAMINE 100 MG/ML 2 ML VIAL IM STA (00:55)
[2017-12-07] MEDS ORDERED: NADOLOL 20 MG TAB PO STA (06:32)
[2017-12-07 06:55] LABS: Creatine Kinase 107 U/L (55-170)
[2017-12-07 07:08] LABS: Creatine Kinase MB 0.6 ng/mL (0.0-2.4); Troponin I <0.012 ng/mL (0.000-0.034)
[2017-12-07] MEDS: ACETAMINOPHEN TAB 325 MG TAB PO PRN ×2 (09:15→21:29)
[2017-12-07] MEDS ORDERED: DOCUSATE 100 MG CAP PO PRN (09:49)
[2017-12-07 10:39] LABS: ALT 67 U/L (21-72); AST 111 U/L (17-59); Albumin 3.7 g/dL (3.5-5.0); Alkaline Phosphatase 210 U/L (38-126); Amylase 80 U/L (30-110); Anion Gap 10 mmol/L; Blood Urea Nitrogen 9 mg/dL (9-20); Calcium 9.1 mg/dL (8.4-10.2); Carbon Dioxide 30 mmol/L (22-30); Chloride 100 mmol/L (98-107); Glucose 120 mg/dL (74-99); Lipase 161 U/L (23-300); Potassium 4.2 mmol/L (3.5-5.1); Sodium 140 mmol/L (137-145); Total Bilirubin 0.9 mg/dL (0.2-1.3); Total Protein 7.7 g/dL (6.3-8.2)
[2017-12-07 10:40] LABS: Anisocytosis Slight; Basophils % (A) 0 %; Eosinophils # (A) 0.1 k/uL (0-0.7); Eosinophils % (A) 2 %; HCT 36.1 % (39.0-53.0); HGB 10.9 gm/dL (13.0-17.5); Hypochromasia Marked; Lymphocytes # (A) 1.1 k/uL (1.0-4.8); Lymphocytes % (A) 24 %; MCH 26.9 pg (25.0-35.0); MCHC 30.3 g/dL (31.0-37.0); MCV 88.6 fL (80.0-100.0); Mean Platelet Volume 8.4; Monocytes # (A) 0.4 k/uL (0-1.0); Monocytes % (A) 8 %; Neutrophils % (A) 65 %; Platelet Count 286 k/uL (150-450); RBC 4.08 m/uL (4.30-5.90); RDW 17.8 % (11.5-15.5); WBC 4.7 k/uL (3.8-10.6)
[2017-12-07] MEDS: CHOLECALCIFEROL 1,000 UNIT TAB PO SCH (11:22)
[2017-12-07] MEDS: MAGNESIUM SULFATE-D5W PMX 1 GM in DEXTROSE/WATER 1 100ML.BAG IVPB SCH ×2 (11:22→12:27)
[2017-12-07 11:29] LABS: Glucose,Whole Blood 144 mg/dL (75-99)
--- NOTE | 2017-12-07 12:01 | P.HPIM ---
History of Present Illness H&P Date: 12/07/17 Chief Complaint: chest pain, possible seizure This is a 62-year-old male patient of Dr. Phillips who presented to the emergency room after he started to experience chest pain that started this morning. Patient states that he further collapsed to the ground but was unsure if he had a possible seizure. Patient also reports that he had been feeling shaky throughout the day. Patient also states that he could be withdrawing from alcohol as his last drink was 3 days ago. Patient has a known past medical history of atrial fibrillation and not on anticoagulation due to previous GI bleed, COPD, diabetes mellitus type 2, hyperlipidemia, hypertension , PE, esophageal varices with bleeding requiring EGD and ligation in October 2017 and TIA. Patient had an elevated d-dimer on admission at 1.42. CTA of the chest showed pulmonary interstitial fibrotic changes. No evidence of pulmonary embolism. No change compared to last exam. EKG performed showing normal sinus rhythm voltage criteria for left ventricular hypertrophy. Troponin level negative. Magnesium level 1.4. Replacement has been ordered. Lactic acid 2.3 patient received 1 L normal saline in emergency room. X-ray performed showing no active cardiopulmonary disease. Minimal pulmonary fibrotic changes. No change. Patient currently on CIWA scale with Ativan. Cardiology consulted for chest pain. Neurology consulted for possible seizure. Patient states minimal improvement with chest pain. Patient currently on telemetry. Patient denies shortness of breath. Does complain of having diarrhea and some abdominal pain that started today. Amylase and lipase labs have been ordered. Denies any bloody emesis or stools at this time. Denies any urinary symptoms. Review of Systems Please refer to HPI otherwise unremarkable Past Medical History Past Medical History: Atrial Fibrillation, Chest Pain / Angina, COPD, CVA/TIA, Diabetes Mellitus, GERD/Reflux, GI Bleed, Hyperlipidemia, Hypertension, Pulmonary Embolus (PE) Additional Past Medical History / Comment(s): Alcoholism, chronic alcoholic cirrhosis with portal hypertension and previous history of GI bleeding, esophageal varices, diabetes mellitus, hypertension, hyperlipidemia, previous history of childhood seizure which he outgrew not taking any antiepileptic medication, history of atrial fibrillation, history of pulmonary embolism, hypertension, hyperlipidemia, previous history of GI bleed, previous history of CVA without any residual deficits. He also has history of diverticulosis, chronic lower extremity ankle edema, previous history of septicemia, cervical disc disease with chronic back pain, degenerative arthritis involving the lower back, tinnitus History of Any Multi-Drug Resistant Organisms: None Reported Past Surgical History: Appendectomy, Cholecystectomy Additional Past Surgical History / Comment(s): 07/20/17 EGD, 03/21/17 EGD/ colonoscopy, other colonoscopies. Past Anesthesia/Blood Transfusion Reactions: Previous Problems w/ Anesthesia Additional Past Anesthesia/Blood Transfusion Reaction / Comment(s): after appendix removed sob Past Psychological History: Anxiety, Depression Additional Psychological History / Comment(s): Pt lives in an apartment alone in [facility] . complex has front door ramp and has an elevator. no pets. Sometimes his sister stays with him and cleans his home. He uses a cane to ambulate at times. He drives but currently has no car. He gets to [employer] by [email or web address]. He has a nebulizer. Used to work in [employer]. Relates that he's not been a smoker. Denies recreational drug use. His left him many years ago he has adult children that he does not see very often. No experience. No travel history. No animal exposures Smoking Status: Never smoker Past Alcohol Use History: Occasional Additional Past Alcohol Use History / Comment(s): Pt stated when he was younger he drank heavy but had cut down to occ. pt stated he is trying to quit and has' nt drank in 4 weeks. Past Drug Use History: None Reported - Past Family History Mother Family Medical History: COPD, CVA/TIA, Dementia Additional Family Medical History / Comment(s): from a stroke Father Family Medical History: Pneumonia Additional Family Medical History / Comment(s): Father of pneumonia when he was close to 80 yrs old. Medications and Allergies Home Medications Medication Instructions Recorded Confirmed Type Docusate [Colace] 100 mg PO DAILY PRN #20 capsule 08/27/17 12/06/17 Rx Ferrous Sulfate [Feosol] 325 mg PO DAILY #30 tab 08/27/17 12/06/17 Rx metFORMIN HCL 1,000 mg PO BID 09/23/17 12/06/17 History Magnesium Oxide 400 mg PO DAILY #30 tablet 09/24/17 12/06/17 Rx Pantoprazole [Protonix] 40 mg PO AC-BID #60 tablet. 10/25/17 12/06/17 Rx Folic Acid 1 mg PO DAILY 11/09/17 12/06/17 History Multivitamins, Thera [Multivitamin 1 tab PO DAILY 11/09/17 12/06/17 History (formulary)] Thiamine [Vitamin B-1] 100 mg PO DAILY 11/09/17 12/06/17 History Nadolol [Corgard] 20 mg PO DAILY #30 tab 11/11/17 12/06/17 Rx Cholecalciferol [Vitamin D3] 2,000 unit PO DAILY@1200 #30 tab 11/26/17 12/06/17 Rx Albuterol Nebulized [Ventolin 2.5 mg INHALATION RT-Q6H PRN 12/06/17 12/06/17 History Nebulized] Allergies Allergy/AdvReac Type Severity Reaction Status Date / Time adhesive tape Allergy Rash/Hives Verified 12/06/17 22:47 egg AdvReac Nausea & Verified 12/06/17 22:47 Vomiting lisinopril AdvReac EYES Verified 12/06/17 22:47 BURN&ITCH/WEAKNESS tomato AdvReac Nausea & Verified 12/06/17 22:47 Vomiting & Diarrhea Physical Exam Vitals: Vital Signs Temp Pulse Resp BP Pulse Ox 12/07/17 07:45 98.6 F 94 19 161/90 98 12/07/17 06:19 90 20 180/110 97 12/07/17 03:23 98.5 F 94 16 170/95 94 L 12/07/17 00:06 93 18 149/83 97 12/06/17 21:41 98.1 F 105 H 20 165/95 94 L Intake and Output 12/06/17 12/07/17 12/07/17 22:59 06:59 14:59 Other: Weight 83.461 kg Head normocephalic Neck supple Lungs clear to auscultation bilaterally no wheezing or crackles Heart regular rate and rhythm S1-S2, no rub or gallop Abdomen is soft nontender nondistended positive bowel sounds no hepatosplenomegaly Extremities no edema Neuro alert and orientated to 3 Results CBC & Chem 7: 12/07/17 06:20 12/07/17 06:20 Labs: Abnormal Lab Results - Last 24 Hours (Table) 12/06/17 12/06/17 12/06/17 Range/Units 21:46 21:46 21:46 RBC 3.65 L (4.30-5.90) m/uL Hgb 9.9 L (13.0-17.5) gm/dL Hct 31.8 L (39.0-53.0) % RDW 18.1 H (11.5-15.5) % INR 1.3 H (<1.2) D-Dimer 1.42 H (<0.60) mg/L FEU Chloride 109 H (98-107) mmol/L Glucose 132 H (74-99) mg/dL Plasma Lactic Acid Hitesh (0.7-2.0) mmol/L Magnesium 1.4 L (1.6-2.3) mg/dL AST 105 H (17-59) U/L Alkaline Phosphatase 170 H (38-126) U/L 12/06/17 Range/Units 21:46 RBC (4.30-5.90) m/uL Hgb (13.0-17.5) gm/dL Hct (39.0-53.0) % RDW (11.5-15.5) % INR (<1.2) D-Dimer (<0.60) mg/L FEU Chloride (98-107) mmol/L Glucose (74-99) mg/dL Plasma Lactic Acid Hitesh 2.3 H* (0.7-2.0) mmol/L Magnesium (1.6-2.3) mg/dL AST (17-59) U/L Alkaline Phosphatase (38-126) U/L Thrombosis Risk Factor Assmnt - Choose All That Apply Any of the Below Risk Factors Present?: Yes Each Factor Represents 1 point: Abnormal pulmonary function (COPD), Obesity ( BMI >25) Other Risk Factors: Yes Each Risk Factor Represents 2 Points: Age 61-74 years Other congenital or acquired thrombophilia - If yes, enter type in comment: No Thrombosis Risk Factor Assessment Total Risk Factor Score: 4 Thrombosis Risk Factor Assessment Level: Moderate Risk Assessment and Plan Assessment: 1. Chest pain. Troponin level negative. EKG normal sinus rhythm voltage criteria for left ventricular hypertrophy. D-dimer on admission 1.42. CTA performed showing pulmonary interstitial fibrotic changes. No evidence of pulmonary embolism. No change compared to last exam. Chest X-ray performed showing no active come cardiopulmonary disease. Minimum positive pulmonary fibrotic changes. No change. Cardiology consult have been requested. Patient placed on telemetry 2. Possible seizure. Neurology consult have been requested. Patient recently admitted with witnessed seizure. Neurology following. EEG and computed tomography scan of the brain were normal at that time. Patient does report history of epilepsy as a child. 3. History of alcohol dependence. Patient reports his last drink was 3 days ago. Alcohol withdrawal protocol has been ordered. Continue thiamine and multivitamin. 4. Elevated lactate acid. Received 1 L normal saline done emergency room. Metformin held 5. Hypomagnesemia. Magnesium replacement protocol. Home dose of Mag-Ox reordered for tomorrow 6. Abdominal pain. Patient does report he is having some diarrhea that started today. Amylase and lipase levels have been ordered. 7. History of paroxysmal atrial fibrillation: not on anticoagulation due to GI bleed 8. Diabetes mellitus type 2. Sliding scale coverage has been ordered. Metformin on hold 9. History of esophageal varices requiring EGD and ligation on 10/21/2017 10. History of pulmonary embolism. CTA this admission negative for pulmonary embolism. 11. Iron deficiency anemia. Continue iron supplement 12. History of TIA 13. Essential hypertension 14. History of COPD. No evidence of exacerbation at this time 15. Chronic liver cirrhosis with secondary portal hypertension. AST 105, ALT 62. We'll continue to monitor closely 16. vitamin D deficiency. Continue Vitamin D 17. History of thrombocytopenia secondary to patient's liver disease. Current platelet level 291. Will Continue to monitor. GI prophylaxis Pepcid Time with Patient: Greater than 30 (Greater than 60% of the total time spent in counseling and coordination of care. I performed an examination of the patient and discussed their management with the Nurse Practitioner. I have reviewed the Nurse Practitioner's notes and agree with the documented findings and plan of care)
[2017-12-07] MEDS: INSULIN ASPART 100 UNIT/ML 1 ML 10 ML VIAL SQ SCH ×3 (12:29→21:26)
[2017-12-07 12:34] LABS: Creatine Kinase 115 U/L (55-170)
[2017-12-07] MEDS: ALBUTEROL NEBULIZED 2.5 MG/3 ML INHALATION PRN ×2 (12:40→20:44)
[2017-12-07 12:45] LABS: Creatine Kinase MB 0.6 ng/mL (0.0-2.4); Troponin I <0.012 ng/mL (0.000-0.034)
[2017-12-07] MEDS ORDERED: ONDANSETRON 4 MG/2 ML VIAL IVP PRN (13:37)
--- NOTE | 2017-12-07 13:41 | P.CRDCN ---
History of Present Illness History of present illness: Mr. Aguilar is a pleasant 62-year-old male past medical history significant for dyslipidemia, hypertension, diabetes mellitus, esophageal varices, chronic alcohol abuse, alcoholic cirrhosis with portal hypertension and history of GI bleeding. He denies history of coronary artery disease. We have been asked to see him in consultation for chest pain. He complains of a sharp pain in the left precordial region worse with deep inspiration. He denies radiation to the arm, back, neck or jaw. He states he feels as though he is swallowing blood. He can taste in his mouth. He denies associated shortness of breath, dizziness, nausea, vomiting, palpitations or diaphoresis. He was seen earlier this month in the hospital for similar type complaints and underwent a dobutamine stress echocardiogram which was negative for stress- induced cardiac ischemia. He was also in the hospital in the beginning of October with bleeding esophageal varices and underwent ligation per Dr. Sheehan. He states his last alcohol beverage 3 days ago. EKG reveals sinus mechanism with no acute ST or T wave abnormalities noted. Chest x-ray reveals no acute cardiopulmonary process with evidence of minimal pulmonary fibrotic changes. CT angio of the chest performed reveals pulmonary interstitial fibrotic changes with no evidence of PE. Laboratory data reviewed, hemoglobin 10.9, platelets 286, INR 1.3, d-dimer 1.42 , sodium 140, potassium 4.2, magnesium on admission 1.4, lactic acid on admission 2.3, cardiac enzymes negative 3. Current cardiac medications include nadolol 20 mg daily. He also takes metformin, Protonix, albuterol, magnesium supplementation and ferrous sulfate. Most recent echocardiogram September 2017 reveals preserved left ventricular systolic function with ejection fraction 60-65%, moderately dilated left atrium, mild MR and trace TR. Review of Systems At the time of my exam: CONSTITUTIONAL: Denies fever. Denies chills. EYES: Denies blurred vision. Denies vision changes. Denies eye pain. EARS, NOSE, MOUTH & THROAT: Denies headache. Denies sore throat. Denies ear pain. CARDIOVASCULAR: Denies chest pain. Denies shortness of breath. Denies orthopnea. Denies PND. Denies palpitations. RESPIRATORY: Denies cough. GASTROINTESTINAL: Denies abdominal pain. Denies diarrhea. Denies constipation. Denies nausea. Denies vomiting. MUSCULOSKELETAL: Denies myalgias. Complains of pleuritic pain with inspiration. INTEGUMENTARY: Denies pruitis. Denies rash. NEUROLOGIC: Denies numbness. Denies tingling. Denies weakness. PSYCHIATRIC: Denies anxiety. Denies depression. ENDOCRINE: Denies fatigue. Denies weight change. Denies polydipsia. Denies polyurina. GENITOURINARY: Denies burning, hematuria or urgency with micturation. HEMATOLOGIC: Denies history of anemia. Denies bleeding. Past Medical History Past Medical History: Atrial Fibrillation, Chest Pain / Angina, COPD, CVA/TIA, Diabetes Mellitus, GERD/Reflux, GI Bleed, Hyperlipidemia, Hypertension, Pulmonary Embolus (PE) Additional Past Medical History / Comment(s): Alcoholism, chronic alcoholic cirrhosis with portal hypertension and previous history of GI bleeding, esophageal varices, diabetes mellitus, hypertension, hyperlipidemia, previous history of childhood seizure which he outgrew not taking any antiepileptic medication, history of atrial fibrillation, history of pulmonary embolism, hypertension, hyperlipidemia, previous history of GI bleed, previous history of CVA without any residual deficits. He also has history of diverticulosis, chronic lower extremity ankle edema, previous history of septicemia, cervical disc disease with chronic back pain, degenerative arthritis involving the lower back, tinnitus History of Any Multi-Drug Resistant Organisms: None Reported Past Surgical History: Appendectomy, Cholecystectomy Additional Past Surgical History / Comment(s): 07/20/17 EGD, 03/21/17 EGD/ colonoscopy, other colonoscopies. Past Anesthesia/Blood Transfusion Reactions: Previous Problems w/ Anesthesia Additional Past Anesthesia/Blood Transfusion Reaction / Comment(s): after appendix removed sob Past Psychological History: Anxiety, Depression Additional Psychological History / Comment(s): Pt lives in an apartment alone in [facility] . complex has front door ramp and has an elevator. no pets. Sometimes his sister stays with him and cleans his home. He uses a cane to ambulate at times. He drives but currently has no car. He gets to [employer] by [employer]. He has a nebulizer. Used to work in [employer]. Relates that he's not been a smoker. Denies recreational drug use. His left him many years ago he has adult children that he does not see very often. No experience. No travel history. No animal exposures Smoking Status: Never smoker Past Alcohol Use History: Occasional Additional Past Alcohol Use History / Comment(s): Pt stated when he was younger he drank heavy but had cut down to occ. pt stated he is trying to quit and has' nt drank in 4 weeks. Past Drug Use History: None Reported - Past Family History Mother Family Medical History: COPD, CVA/TIA, Dementia Additional Family Medical History / Comment(s): from a stroke Father Family Medical History: Pneumonia Additional Family Medical History / Comment(s): Father of pneumonia when he was close to 80 yrs old. Medications and Allergies Home Medications Medication Instructions Recorded Confirmed Type Docusate [Colace] 100 mg PO DAILY PRN #20 capsule 08/27/17 12/06/17 Rx Ferrous Sulfate [Feosol] 325 mg PO DAILY #30 tab 08/27/17 12/06/17 Rx metFORMIN HCL 1,000 mg PO BID 09/23/17 12/06/17 History Magnesium Oxide 400 mg PO DAILY #30 tablet 09/24/17 12/06/17 Rx Pantoprazole [Protonix] 40 mg PO AC-BID #60 tablet. 10/25/17 12/06/17 Rx Folic Acid 1 mg PO DAILY 11/09/17 12/06/17 History Multivitamins, Thera [Multivitamin 1 tab PO DAILY 11/09/17 12/06/17 History (formulary)] Thiamine [Vitamin B-1] 100 mg PO DAILY 11/09/17 12/06/17 History Nadolol [Corgard] 20 mg PO DAILY #30 tab 11/11/17 12/06/17 Rx Cholecalciferol [Vitamin D3] 2,000 unit PO DAILY@1200 #30 tab 11/26/17 12/06/17 Rx Albuterol Nebulized [Ventolin 2.5 mg INHALATION RT-Q6H PRN 12/06/17 12/06/17 History Nebulized] Allergies Allergy/AdvReac Type Severity Reaction Status Date / Time adhesive tape Allergy Rash/Hives Verified 12/06/17 22:47 egg AdvReac Nausea & Verified 12/06/17 22:47 Vomiting lisinopril AdvReac EYES Verified 12/06/17 22:47 BURN&ITCH/WEAKNESS tomato AdvReac Nausea & Verified 12/06/17 22:47 Vomiting & Diarrhea Physical Exam Vitals: Vital Signs Temp Pulse Resp BP Pulse Ox 12/07/17 12:53 88 12/07/17 12:41 88 12/07/17 07:45 98.6 F 94 19 161/90 98 12/07/17 06:19 90 20 180/110 97 12/07/17 03:23 98.5 F 94 16 170/95 94 L 12/07/17 00:06 93 18 149/83 97 12/06/17 21:41 98.1 F 105 H 20 165/95 94 L Intake and Output 12/06/17 12/07/17 12/07/17 22:59 06:59 14:59 Other: Voiding Method Toilet Urinal Weight 83.461 kg Blood pressure 161/90 heart rate 94 afebrile maintaining oxygen saturation on room air GENERAL: This is a 62-year-old male in no apparent distress at the time of my examination. HEENT: Head is atraumatic, normocephalic. Pupils are equal, round. Sclerae anicteric. Conjunctivae are clear. Mucous membranes of the mouth are moist. Neck is supple. There is no jugular venous distention. No carotid bruit is heard. LUNGS: Clear to auscultation no wheezes, rales or rhonchi. No chest wall tenderness is noted on palpation or with deep breathing. HEART: Regular rate and rhythm without murmurs, rubs or gallops. S1 and S2 heard. ABDOMEN: Soft, nontender. Bowel sounds are heard. No organomegaly noted. EXTREMITIES: No evidence of peripheral edema and no calf tenderness noted. VASCULAR: Radial and dorsalis pedis pulses palpated, no evidence of clubbing. NEUROLOGIC: Patient is awake, alert and oriented x3. Results 12/07/17 06:20 12/07/17 06:20 Cardiac Enzymes 12/06/17 12/06/17 12/07/17 Range/Units 21:46 21:46 06:20 AST 105 H (17-59) U/L CK-MB (CK-2) 0.4 0.6 (0.0-2.4) ng/mL Troponin I <0.012 <0.012 (0.000-0.034) ng/mL 12/07/17 12/07/17 Range/Units 06:20 12:03 AST 111 H (17-59) U/L CK-MB (CK-2) 0.6 (0.0-2.4) ng/mL Troponin I <0.012 (0.000-0.034) ng/mL Coagulation 12/06/17 Range/Units 21:46 PT 11.9 (9.0-12.0) sec APTT 27.0 (22.0-30.0) sec CBC 12/06/17 12/07/17 Range/Units 21:46 06:20 WBC 4.6 4.7 (3.8-10.6) k/uL RBC 3.65 L 4.08 L (4.30-5.90) m/uL Hgb 9.9 L 10.9 L (13.0-17.5) gm/dL Hct 31.8 L 36.1 L (39.0-53.0) % Plt Count 291 D 286 (150-450) k/uL Comprehensive Metabolic Panel 12/06/17 12/07/17 Range/Units 21:46 06:20 Sodium 145 140 (137-145) mmol/L Potassium 4.4 4.2 (3.5-5.1) mmol/L Chloride 109 H 100 (98-107) mmol/L Carbon Dioxide 25 30 (22-30) mmol/L BUN 9 9 (9-20) mg/dL Creatinine 0.70 0.75 (0.66-1.25) mg/dL Glucose 132 H 120 H (74-99) mg/dL Calcium 8.6 9.1 (8.4-10.2) mg/dL AST 105 H 111 H (17-59) U/L ALT 62 67 (21-72) U/L Alkaline Phosphatase 170 H 210 H (38-126) U/L Total Protein 7.2 7.7 (6.3-8.2) g/dL Albumin 3.5 3.7 (3.5-5.0) g/dL Current Medications Generic Name Dose Route Start Last Admin Trade Name Freq PRN Reason Stop Dose Admin Acetaminophen 650 mg 12/07/17 00:53 12/07/17 09:15 Tylenol Tab PO 650 mg Q6HR PRN Administration Mild Pain or Fever > 100.5 Albuterol Sulfate 2.5 mg 12/07/17 09:49 12/07/17 12:40 Ventolin Nebulized INHALATION 2.5 mg RT-Q6H PRN Administration Shortness Of Breath Cholecalciferol 2,000 unit 12/07/17 12:00 12/07/17 11:22 Vitamin D3 PO 2,000 unit DAILY@1200 [facility] Administration Docusate Sodium 100 mg 12/07/17 09:49 Colace PO DAILY PRN Constipation Famotidine 20 mg 12/08/17 09:00 Pepcid PO DAILY [facility] Ferrous Sulfate 325 mg 12/08/17 09:00 Feosol PO DAILY [facility] Insulin Aspart 0 unit 12/07/17 12:30 12/07/17 12:29 Novolog SQ 1 unit ACHS [facility] Administration Protocol Lorazepam 1 mg 12/07/17 00:55 12/07/17 09:14 Ativan IV 1 mg Q2HR PRN Administration CIWA 8 or 9 Lorazepam 1 mg 12/07/17 00:55 Ativan IV Q1HR PRN CIWA 10 to 15 Lorazepam 2 mg 12/07/17 00:55 Ativan IV 12/09/17 00:55 Q10M PRN CIWA 16 or higher Magnesium Oxide 400 mg 12/08/17 09:00 Mag-Ox PO DAILY [facility] Multivitamins 1 each 12/08/17 12:00 Theragran PO 1200 [facility] Naloxone HCl 0.2 mg 12/07/17 00:53 Narcan IV Q2M PRN Opioid Reversal Pantoprazole Sodium 40 mg 12/07/17 17:30 Protonix PO AC-BID [facility] Thiamine HCl 100 mg 12/07/17 17:00 Vitamin B-1 PO BID@1200,1700 [facility]ANYA Intake and Output 12/06/17 12/07/17 12/07/17 22:59 06:59 14:59 Other: Voiding Method Toilet Urinal Weight 83.461 kg 12/07/17 06:20 12/07/17 06:20 Assessment and Plan Assessment: ASSESSMENT Pleuritic chest pain. An acute coronary event has been ruled out, patient had a recent normal stress echocardiogram. Hypertension COPD Diabetes mellitus History of esophageal varices with recent ligation Chronic alcohol abuse with alcoholic cirrhosis and portal hypertension Anemia, chronic Hypomagnesemia PLAN An acute coronary event has been ruled out with no EKG evidence of ischemia and negative cardiac enzymes. He is also had a recent normal stress test. No further cardiac workup at this time. Stable from a cardiac perspective, ongoing medical management. Thank you kindly for this consultation. The above impression and plan of care have been discussed and directed by the signing physician. Sheba Alva, nurse practitioner, acting as scribe for signing physician.
--- NOTE | 2017-12-07 16:07 | P.CNPUL ---
History of Present Illness Consult date: 12/07/17 Requesting physician: Charlette Finney Reason for consult: chest pain, other Chief complaint: Possible seizure episode History of present illness: This is a 62-year-old white male patient of Dr. Phillips who presented to the emergency department on 12/06/2017 at 2139 via EMS for evaluation of a possible seizure. Patient reported having left sided chest pain which he described as pressure and sharp pain exacerbated by breathing and coughing yesterday, palpitations, he was feeling shaky, and subsequently he collapsed to the ground while walking down the hallway at which time witness called 911. Patient denies having a fever, but reports being diaphoretic, and he remains diaphoretic on today's exam. His cough is dry, noncongested. He reports nausea , and episodes of dry heaving without actual vomiting yesterday, he reports decreased oral intake. Patient is a nonsmoker. There was no reported bowel or bladder incontinence. He does have a history of seizures in childhood, and he was recently hospitalized for a single episode of seizure prior to undergoing a stress test in early November 2017. He was evaluated by neurology at that time, it was an isolated episode of seizure, was stopped by IV Ativan. Brain CT from 01/2018 showed no acute intracranial abnormality, EEG was normal. Patient is not on any maintenance anticonvulsants on a regular basis. He has a chronic and ongoing alcohol abuse history and his last drink was reportedly 3 days ago. Patient had a dobutamine stress echo on 11/24/2017 which showed no ischemic ECG or echocardiographic evidence. Other medical history includes history of hypertension, hyperlipidemia, CVA without any major residual deficits, atrial fibrillation, and the patient is not on any chronic anticoagulation related to his history of GI bleeding, chronic liver cirrhosis with secondary portal hypertension, esophageal varices with previous banding, diabetes mellitus, hypertension, hyperlipidemia, previous history of PE, cervical disc disease with chronic neck pain, chronic back pain, and previous episode of left lower lung pneumonia in October 2017. Chest x-ray was completed and showed no active cardiopulmonary process, showed minimal pulmonary fibrotic changes. D-dimer was elevated at 1.42, and CT angios showed pulmonary interstitial fibrotic changes, but no evidence of pulmonary embolism. EKG showed normal sinus rhythm without any acute ischemic changes. Lab work showed no evidence of leukocytosis , WBC was 4.6, hemoglobin was 9.9, INR is 1.3, electrolytes were normal except for chloride was 109, renal profile was normal, plasma lactic acid is 2.3, magnesium was 1.4, AST was 105, ALT was 62, alkaline phosphatase was 170, cardiac enzymes and troponins were negative 3, amylase and lipase were 80 and 161 respectively. Patient was given a liter bolus in the emergency department. Patient has been afebrile, hemodynamically stable. On 4 L per nasal cannula his pulse ox is 98%. We're asked to see the patient's in regards to his shortness of breath. Review of Systems Constitutional: Reports chills, Reports poor appetite, Reports weakness Cardiovascular: Reports palpitations, Reports shortness of breath Gastrointestinal: Reports indigestion, Reports loss of appetite Neurological: Reports convulsions, Reports gait dysfunction, Reports weakness Past Medical History Past Medical History: Atrial Fibrillation, Chest Pain / Angina, COPD, CVA/TIA, Diabetes Mellitus, GERD/Reflux, GI Bleed, Hyperlipidemia, Hypertension, Pulmonary Embolus (PE) Additional Past Medical History / Comment(s): Alcoholism, chronic alcoholic cirrhosis with portal hypertension and previous history of GI bleeding, esophageal varices, diabetes mellitus, hypertension, hyperlipidemia, previous history of childhood seizure which he outgrew not taking any antiepileptic medication, history of atrial fibrillation, history of pulmonary embolism, hypertension, hyperlipidemia, previous history of GI bleed, previous history of CVA without any residual deficits. He also has history of diverticulosis, chronic lower extremity ankle edema, previous history of septicemia, cervical disc disease with chronic back pain, degenerative arthritis involving the lower back, tinnitus History of Any Multi-Drug Resistant Organisms: None Reported Past Surgical History: Appendectomy, Cholecystectomy Additional Past Surgical History / Comment(s): 07/20/17 EGD, 03/21/17 EGD/ colonoscopy, other colonoscopies. Past Anesthesia/Blood Transfusion Reactions: Previous Problems w/ Anesthesia Additional Past Anesthesia/Blood Transfusion Reaction / Comment(s): after appendix removed sob Past Psychological History: Anxiety, Depression Additional Psychological History / Comment(s): Pt lives in an apartment alone in [facility] . complex has front door ramp and has an elevator. no pets. Sometimes his sister stays with him and cleans his home. He uses a cane to ambulate at times. He drives but currently has no car. [facility] [employer] [facility]. He has a nebulizer. Used to work in [employer]. Relates that he's not been a smoker. Denies recreational drug use. His left him many years ago he has adult children that he does not see very often. No experience. No travel history. No animal exposures Smoking Status: Never smoker Past Alcohol Use History: Occasional Additional Past Alcohol Use History / Comment(s): Pt stated when he was younger he drank heavy but had cut down to occ. pt stated he is trying to quit and has' nt drank in 4 weeks. Past Drug Use History: None Reported - Past Family History Mother Family Medical History: COPD, CVA/TIA, Dementia Additional Family Medical History / Comment(s): from a stroke Father Family Medical History: Pneumonia Additional Family Medical History / Comment(s): Father of pneumonia when he was close to 80 yrs old. Medications and Allergies Home Medications Medication Instructions Recorded Confirmed Type Docusate [Colace] 100 mg PO DAILY PRN #20 capsule 08/27/17 12/06/17 Rx Ferrous Sulfate [Feosol] 325 mg PO DAILY #30 tab 08/27/17 12/06/17 Rx metFORMIN HCL 1,000 mg PO BID 09/23/17 12/06/17 History Magnesium Oxide 400 mg PO DAILY #30 tablet 09/24/17 12/06/17 Rx Pantoprazole [Protonix] 40 mg PO AC-BID #60 tablet. 10/25/17 12/06/17 Rx Folic Acid 1 mg PO DAILY 11/09/17 12/06/17 History Multivitamins, Thera [Multivitamin 1 tab PO DAILY 11/09/17 12/06/17 History (formulary)] Thiamine [Vitamin B-1] 100 mg PO DAILY 11/09/17 12/06/17 History Nadolol [Corgard] 20 mg PO DAILY #30 tab 11/11/17 12/06/17 Rx Cholecalciferol [Vitamin D3] 2,000 unit PO DAILY@1200 #30 tab 11/26/17 12/06/17 Rx Albuterol Nebulized [Ventolin 2.5 mg INHALATION RT-Q6H PRN 12/06/17 12/06/17 History Nebulized] Allergies Allergy/AdvReac Type Severity Reaction Status Date / Time adhesive tape Allergy Rash/Hives Verified 12/06/17 22:47 egg AdvReac Nausea & Verified 12/06/17 22:47 Vomiting lisinopril AdvReac EYES Verified 12/06/17 22:47 BURN&ITCH/WEAKNESS tomato AdvReac Nausea & Verified 12/06/17 22:47 Vomiting & Diarrhea Physical Exam Vitals: Vital Signs Temp Pulse Resp BP Pulse Ox 12/07/17 12:53 88 12/07/17 12:41 88 12/07/17 07:45 98.6 F 94 19 161/90 98 12/07/17 06:19 90 20 180/110 97 12/07/17 03:23 98.5 F 94 16 170/95 94 L 12/07/17 00:06 93 18 149/83 97 12/06/17 21:41 98.1 F 105 H 20 165/95 94 L Intake and Output 12/06/17 12/07/17 12/07/17 22:59 06:59 14:59 Other: Voiding Method Toilet Urinal Weight 83.461 kg GENERAL EXAM: Alert, pleasant 62-year-old white male, comfortable in no apparent distress. Patient has had ongoing nausea, there is a emesis basin in his bed. Patient appears to be slightly diaphoretic HEAD: Normocephalic/atraumatic. EYES: Normal reaction of pupils, equal size. Conjunctiva pink, sclera white. NOSE: Clear with pink turbinates. THROAT: No erythema or exudates. NECK: No masses, no JVD, no thyroid enlargement, no adenopathy. CHEST: No chest wall deformity. Symmetrical expansion. LUNGS: Equal air entry with no crackles, wheeze, rhonchi or dullness. CVS: Regular rate and rhythm, normal S1 and S2, no gallops, no murmurs, no rubs ABDOMEN: Soft, nontender. No hepatosplenomegaly, normal bowel sounds, no guarding or rigidity. EXTREMITIES: No clubbing, no edema, no cyanosis, 2+ pulses and upper and lower extremities. MUSCULOSKELETAL: Muscle strength and tone normal. SPINE: No scoliosis or deformity SKIN: No rashes CENTRAL NERVOUS SYSTEM: Alert and oriented -3. No focal deficits, tone is normal in all 4 extremities. PSYCHIATRIC: Alert and oriented -3. Appropriate affect. Intact judgment and insight. Results - Laboratory Findings CBC and BMP: 12/07/17 06:20 12/07/17 06:20 PT/INR, D-dimer PT 11.9 sec (9.0-12.0) 12/06/17 21:46 INR 1.3 (<1.2) H 12/06/17 21:46 D-Dimer 1.42 mg/L FEU (<0.60) H 12/06/17 21:46 Abnormal lab findings: Abnormal Labs 12/06/17 12/06/17 12/06/17 21:46 21:46 21:46 RBC 3.65 L Hgb 9.9 L Hct 31.8 L MCHC RDW 18.1 H INR 1.3 H D-Dimer 1.42 H Chloride 109 H Glucose 132 H POC Glucose (mg/dL) Plasma Lactic Acid Hitesh Magnesium 1.4 L AST 105 H Alkaline Phosphatase 170 H 12/06/17 12/07/17 12/07/17 21:46 06:20 06:20 RBC 4.08 L Hgb 10.9 L Hct 36.1 L MCHC 30.3 L RDW 17.8 H INR D-Dimer Chloride Glucose 120 H POC Glucose (mg/dL) Plasma Lactic Acid Hitesh 2.3 H* Magnesium AST 111 H Alkaline Phosphatase 210 H 12/07/17 11:27 RBC Hgb Hct MCHC RDW INR D-Dimer Chloride Glucose POC Glucose (mg/dL) 144 H Plasma Lactic Acid Hitesh Magnesium AST Alkaline Phosphatase - Diagnostic Findings Chest x-ray: report reviewed, image reviewed CT scan - chest: report reviewed, image reviewed Additional studies: EKG reviewed Assessment and Plan Plan: Assessment: #1. Chest pain, appears to be noncardiac in nature. Exacerbated by deep breathing and coughing, reproducible, left-sided, with radiation to the middle. Cardiac workup is negative #2. Possible episode of seizure #3. A fall at home #4. Elevated d-dimer, CT angios showed no evidence of pulmonary embolism, no pulmonary mass, no consolidation mild subpleural interstitial fibrotic changes #5. Mildly elevated lactic acid, without evidence of hypoperfusion #6. Nausea, decreased oral intake, possible mild dehydration #7. Chronic and ongoing alcohol abuse, last drink 3-4 days ago #8. Chronic alcoholic cirrhosis with portal hypertension and previous history of esophageal varices and GI bleeding #9. Diabetes mellitus #10. Hypertension, hyperlipidemia #11. Previous history of childhood seizure, which she outgrew in his teenage years, and had an isolated episode of seizure in early November 2017, not on any chronic anticonvulsants #12. History of pulmonary embolism, not on chronic anticoagulation due to history of GI bleeding #12. Chronic anemia #14. Previous history of CVA without any residual deficits #15. Degenerative arthritis involving the lower back, cervical disc disease and chronic back pain Plan: Chest x-ray and CT angios did not show any evidence of acute cardiopulmonary process, negative for pulmonary embolism, pulmonary mass, or infiltrates. Patient does not currently complain of any dyspnea, still has the left chest wall discomfort, possibly pleuritic, or musculoskeletal in nature. We will continue with current medical management, monitor for signs of delirium tremens , patient is mildly diaphoretic, and nauseous, without vomiting. No cough, no phlegm production. No fever. Cardiac workup has been negative so far. No leukocytosis. Continue breathing treatments on is needed basis, patient is on CIWA protocol, magnesium is being supplemented, maintain pain control. We'll continue to follow with you I performed a history & physical examination of the patient and discussed their management with my nurse practitioner, Aline Collins. I reviewed the nurse practitioner's note and agree with the documented findings and plan of care. Lung sounds are clear diminished at the bases. The findings and the impression was discussed with the patient. I attest to the documentation by the nurse practitioner. Time with Patient: Greater than 30
[2017-12-07 17:14] LABS: Glucose,Whole Blood 119 mg/dL (75-99)
[2017-12-07] MEDS: PANTOPRAZOLE 40 MG TABLET PO SCH (17:17)
[2017-12-07] MEDS: THIAMINE 100 MG TAB PO SCH (17:17)
--- NOTE | 2017-12-07 20:34 | CT ---
EXAMINATION TYPE: CT brain wo con DATE OF EXAM: 12/07/2017 COMPARISON: 11/22/2017 HISTORY: RAMIREZ and seizure today CT DLP: 835.8 mGycm Automated exposure control for dose reduction was used. FINDINGS: Ventricles and sulci are normal for age. There is no mass effect nor midline shift. There is no sign of intracranial hemorrhage. The calvarium is intact. There is debris in the left external auditory ca nal. IMPRESSION: NEGATIVE CT SCAN OF THE BRAIN. NO CHANGE.
[2017-12-07 21:24] LABS: Glucose,Whole Blood 116 mg/dL (75-99)
--- NOTE | 2017-12-07 22:28 | US ---
EXAMINATION TYPE: US carotid duplex BILAT DATE OF EXAM: 12/07/2017 COMPARISON: NONE CLINICAL HISTORY: SYNCOPE. Chest pain EXAM MEASUREMENTS: RIGHT: Peak Systolic Velocity (PSV) cm/sec ----- Right CCA: 55.1 ----- Right ICA: 63.8 ----- Right ECA: 87.1 ICA/CCA ratio: 1.2 RIGHT: End Diastole cm/sec ----- Right CCA: 17.3 ----- Right ICA: 21.7 ----- Right ECA: 20.2 LEFT: Peak Systolic Velocity (PSV) cm/sec ----- Left CCA: 77.9 ----- Left ICA: 67.3 ----- Left ECA: 84.5 ICA/CCA ratio: 0.9 LEFT: End Diastole cm/sec ----- Left CCA: 22.3 ----- Left ICA: 17.1 ----- Left ECA: 14.4 VERTEBRALS (direction of flow): Right Vertebral: Antegrade Left Vertebral: Antegrade Rhythm: Normal No significant stenosis seen IMPRESSION: There is antegrade flow in the vertebral arteries. The images and measurements suggest c lose to 0% stenosis in both internal carotid arteries. Criteria for Assigning % of Stenosis / Diameter reduction (Estimation based on the indirect measurements of the internal carotid artery velocities (ICA PSV). 1. Normal (no stenosis)=ICA PSV < 125 cm/s: ratio < 2.0: ICA EDV<40 cm/s. 2. Less than 50% stenosis=ICA PSV < 125 cm/s: ratio < 2.0: ICA EDV<40 cm/s. 3. 50 to 69% stenosis=ICA PSV of 125 to 230 cm/s: ration 2.0 ? 4.0: ICA EDV 40-100 cm/s. 4. Greater than 70% stenosis to near occlusion= ICA PSV > 230 cm/s: ratio > 4.0: ICA EDV > 100 cm/s. 5. Near occlusion= ICA PSV velocities may be low or undetectable: variable ratio and ICA EDV. 6. Total occlusion=unable to detect flow.
[2017-12-08 06:37] VITALS: RESP 16
[2017-12-08 07:18] LABS: Glucose,Whole Blood 120 mg/dL (75-99)
[2017-12-08] MEDS: ALBUTEROL NEBULIZED 2.5 MG/3 ML INHALATION PRN ×2 (07:47→19:38)
[2017-12-08] MEDS: INSULIN ASPART 100 UNIT/ML 1 ML 10 ML VIAL SQ SCH ×4 (07:50→21:52)
[2017-12-08] MEDS: PANTOPRAZOLE 40 MG TABLET PO SCH ×2 (07:52→17:18)
[2017-12-08] MEDS: FAMOTIDINE 20 MG TAB PO SCH (07:52)
[2017-12-08] MEDS: FERROUS SULFATE 325 MG TAB PO SCH (07:52)
[2017-12-08] MEDS: MAGNESIUM OXIDE 400 MG TAB PO SCH (07:52)
--- NOTE | 2017-12-08 08:24 | CONS ---
CONSULTATION DATE OF CONSULTATION: 12/07/2017. CHIEF COMPLAINT: Seizure. HISTORY OF PRESENT ILLNESS: Mr. Aguilar is a pleasant 62-year-old male, who is being evaluated today on 12/07/2017 by the neurology service per the request of Dr. Finney for a possible seizure. The patient was brought into [facility] Emergency Room after he had a questionable seizure at home. The patient states that he started having some chest pain and started feeling palpitations and collapsed to the ground. According to the chart, the patient was witnessed to have some jerking activity and EMS was called. The next thing the patient remembers is being in the ambulance. He did not have any sphincter incontinence or tongue biting. The patient states that he did have seizures during his childhood but has never had any seizures during his adult life. The patient does drink alcohol but denies any daily use until more recently. has had alcohol withdrawal seizures in the past but the patient denies this on my history taking. He continued to complain of chest pain in the emergency room but his cardiac enzymes have been negative. His CBC showed anemia with a hemoglobin of 10.9 and hematocrit of 36%. His comprehensive metabolic profile showed elevated AST at 111. At the time of my evaluation, he is lying in his bed and appears to be in no acute distress. He is not had any further syncopal or seizure like activity since his admission. He denies any headaches or fevers. PAST MEDICAL HISTORY: Atrial fibrillation, angina, chronic obstructive pulmonary disease, history of transient ischemic attacks, diabetes, gastroesophageal reflux disease, history of GI bleeding, hypertension, dyslipidemia, history of pulmonary embolism, history of liver cirrhosis and portal hypertension, history of esophageal varices, history of childhood seizures, diverticulosis, degenerative joint disease, arthritis, history of appendectomy and cholecystectomy. SOCIAL HISTORY: He denies any tobacco or drug use. He does have a previous history of alcohol abuse, but states that he only drinks alcohol occasionally at this time. FAMILY HISTORY: Positive for dementia, stroke, chronic obstructive pulmonary disease. HOME MEDICATIONS: Reviewed in the chart. ALLERGIES: ADHESIVE TAPE, LISINOPRIL, TOMATOES, EGGS. REVIEW OF SYSTEMS: CONSTITUTIONAL: Positive for fatigue. EYES: Negative. ENT: Negative. CARDIOVASCULAR: As mentioned above. RESPIRATORY: Positive for occasional shortness of breath. NEUROLOGICAL: As mentioned above. GASTROINTESTINAL: Positive for occasional heartburn. GENITOURINARY: Negative. DERMATOLOGICAL: Negative. PSYCHIATRIC: Negative. ENDOCRINE: Positive for diabetes. MUSCULOSKELETAL: Positive for occasional joint pain and spine pain. PHYSICAL EXAM: Vital signs show a temperature of 97.7, pulse 89, respiration 20, blood pressure 176/98. GENERAL APPEARANCE: The patient is a well-developed, elderly male, who appears to be in no acute distress. HEENT: Normocephalic, atraumatic. No facial asymmetry is seen. Neck is supple with no masses felt. CARDIOVASCULAR: Regular rate and rhythm. ABDOMEN: Nontender, nondistended. Extremities showed no edema or clubbing. NEUROLOGICAL EXAM: The patient is awake and oriented x3. Speech and language are normal. Strength is full in all 4 extremities. Sensory exam showed decreased light touch sensation in bilateral distal lower extremities. Mild postural tremors are seen. No cranial nerve testing. IMPRESSION: 1. Questionable seizure. 2. Syncopal episode. 3. Hepatic insufficiency. 4. Anemia. 5. History of alcohol abuse. RECOMMENDATION: The patient did have an episode that is questionable for seizures. He did have palpitations and chest pain prior to his collapse. He did not have any sphincter incontinence or tongue biting. The patient's alcohol history is inconsistent when compared to his emergency room admission note. At this time, he does not appear to be in alcohol withdrawal. I do recommend further cardiovascular workup as he may have had a true syncopal episode which was preceded by palpitations. I do recommend telemetry monitoring. An EEG has been ordered. I will order a CT scan of the brain and a carotid Doppler. I do recommend further workup regarding his anemia. Continue neuro checks. I will continue to follow with you. Further recommendations to follow. Thank you for allowing me to participate in the care of your patient. If you have any questions, please feel free to contact me. MMODL / IJN: [id number] /
--- NOTE | 2017-12-08 09:21 | P.PN ---
Subjective Progress Note Date: 12/08/17 Principal diagnosis: Alcohol withdrawal Progress note dated 12/08/2017 This is a 62-year-old male originally from [place] who presented with chest pain. The chest pain appears to be noncardiac in origin. Cardiac evaluation is currently negative. He also may have had an alcoholic related seizure. He did have a fall at home. In addition, he has a history of alcoholic cirrhosis diabetes hypertension hyperlipidemia childhood seizures previous history of pulmonary embolism chronic anemia, history of CVA and degenerative arthritis of the low back. The patient appears to be doing relatively well. His brain CT was negative for an acute event, his carotid Dopplers were negative and his CT angiogram did not show pulmonary embolism and only showed some very mild interstitial changes. Currently the patient is not having any difficulty in breathing and only complains what appears to be may be musculoskeletal and noncardiac chest pain. No active pulmonary issues at this time. Objective - Vital Signs Vital signs: Vital Signs Temp 97.4 F L 12/08/17 06:37 Pulse 92 12/08/17 08:03 Resp 16 12/08/17 06:37 BP 127/79 12/08/17 06:37 Pulse Ox 96 12/08/17 06:37 Intake & Output 12/07/17 12/08/17 12/08/17 18:59 06:59 18:59 Weight 83.461 kg Other: Voiding Method Toilet Toilet Urinal Urinal # Voids 3 2 # Bowel Movements 3 - Exam No acute distress, oriented 3. No supplemental oxygen required HEENT examination is grossly unremarkable. Mucous membranes are moist. No oral lesions. Neck supple. Full range of motion. No adenopathy thyromegaly or neck vein distention. Cardiovascular examination reveals regular rhythm rate. S1-S2 normal. No S3 or S4. No discernible murmur noted. Lungs reveal clear breath sounds. His breath sounds are equal bilaterally. No adventitious lung sounds including wheezes rhonchi or crackles. Abdomen soft bowel sounds are heard. No masses or tenderness. Extremities are intact. No cyanosis clubbing or edema. Skin is without rash or lesion. Neurologic examination is brief but nonfocal. - Labs CBC & Chem 7: 12/07/17 06:20 12/07/17 06:20 Labs: Abnormal Lab Results - Last 24 Hours (Table) 12/07/17 12/07/17 12/07/17 Range/Units 06:20 06:20 11:27 RBC 4.08 L (4.30-5.90) m/uL Hgb 10.9 L (13.0-17.5) gm/dL Hct 36.1 L (39.0-53.0) % MCHC 30.3 L (31.0-37.0) g/dL RDW 17.8 H (11.5-15.5) % Glucose 120 H (74-99) mg/dL POC Glucose (mg/dL) 144 H (75-99) mg/dL AST 111 H (17-59) U/L Alkaline Phosphatase 210 H (38-126) U/L 12/07/17 12/07/17 12/08/17 Range/Units 17:12 21:21 07:16 RBC (4.30-5.90) m/uL Hgb (13.0-17.5) gm/dL Hct (39.0-53.0) % MCHC (31.0-37.0) g/dL RDW (11.5-15.5) % Glucose (74-99) mg/dL POC Glucose (mg/dL) 119 H 116 H 120 H (75-99) mg/dL AST (17-59) U/L Alkaline Phosphatase (38-126) U/L Assessment and Plan Assessment: Assessment #1. Chest pain, appears to be noncardiac in nature. Exacerbated by deep breathing and coughing, reproducible, left-sided, with radiation to the middle. Cardiac workup is negative #2. Possible episode of seizure #3. A fall at home #4. Elevated d-dimer, CT angios showed no evidence of pulmonary embolism, no pulmonary mass, no consolidation mild subpleural interstitial fibrotic changes #5. Mildly elevated lactic acid, without evidence of hypoperfusion #6. Nausea, decreased oral intake, possible mild dehydration #7. Chronic and ongoing alcohol abuse, last drink 3-4 days ago #8. Chronic alcoholic cirrhosis with portal hypertension and previous history of esophageal varices and GI bleeding #9. Diabetes mellitus #10. Hypertension, hyperlipidemia #11. Previous history of childhood seizure, which she outgrew in his teenage years, and had an isolated episode of seizure in early November 2017, not on any chronic anticonvulsants #12. History of pulmonary embolism, not on chronic anticoagulation due to history of GI bleeding #12. Chronic anemia #14. Previous history of CVA without any residual deficits #15. Degenerative arthritis involving the lower back, cervical disc disease and chronic back pain Plan: Plan dated 12/08/2017 The patient appears to be relatively stable. There appears to be no acute pulmonary issues. The patient is really not describing any difficulty in breathing. His issues remain primarily his noncardiac chest pain. The patient seemed be doing relatively well. He is on the CIWA protocol. We'll follow as needed. No additional recommendations are made. Time with Patient: Less than 30
[2017-12-08 09:41] LABS: Anisocytosis Slight; Basophils % (A) 1 %; Eosinophils # (A) 0.2 k/uL (0-0.7); Eosinophils % (A) 4 %; HCT 34.4 % (39.0-53.0); HGB 10.3 gm/dL (13.0-17.5); Hypochromasia Marked; Lymphocytes % (A) 25 %; MCH 26.4 pg (25.0-35.0); MCHC 29.9 g/dL (31.0-37.0); MCV 88.4 fL (80.0-100.0); Mean Platelet Volume 6.9; Monocytes # (A) 0.2 k/uL (0-1.0); Monocytes % (A) 6 %; Neutrophils # (A) 2.4 k/uL (1.3-7.7); Neutrophils % (A) 63 %; Platelet Count 250 k/uL (150-450); RDW 17.6 % (11.5-15.5); WBC 3.9 k/uL (3.8-10.6)
[2017-12-08 09:59] LABS: ALT 56 U/L (21-72); AST 87 U/L (17-59); Albumin 3.7 g/dL (3.5-5.0); Alkaline Phosphatase 200 U/L (38-126); Anion Gap 10 mmol/L; Blood Urea Nitrogen 10 mg/dL (9-20); Calcium 8.9 mg/dL (8.4-10.2); Carbon Dioxide 25 mmol/L (22-30); Chloride 102 mmol/L (98-107); Glucose 202 mg/dL (74-99); Magnesium 1.7 mg/dL (1.6-2.3); Potassium 3.9 mmol/L (3.5-5.1); Sodium 137 mmol/L (137-145); Total Protein 7.4 g/dL (6.3-8.2)
[2017-12-08 11:40] LABS: Glucose,Whole Blood 158 mg/dL (75-99)
[2017-12-08] MEDS: CHOLECALCIFEROL 1,000 UNIT TAB PO SCH (12:06)
[2017-12-08] MEDS: THIAMINE 100 MG TAB PO SCH ×2 (12:06→17:18)
[2017-12-08] MEDS: MULTIVITAMINS, THERA 1 EACH TAB PO SCH (12:06)
--- NOTE | 2017-12-08 14:14 | P.PN ---
Subjective Progress Note Date: 12/08/17 This is a 62-year-old male patient of Dr. Phillips who presented to the emergency room after he started to experience chest pain that started this morning. Patient states that he further collapsed to the ground but was unsure if he had a possible seizure. Patient also reports that he had been feeling shaky throughout the day. Patient also states that he could be withdrawing from alcohol as his last drink was 3 days ago. Patient has a known past medical history of atrial fibrillation and not on anticoagulation due to previous GI bleed, COPD, diabetes mellitus type 2, hyperlipidemia, hypertension , PE, esophageal varices with bleeding requiring EGD and ligation in October 2017 and TIA. Patient had an elevated d-dimer on admission at 1.42. CTA of the chest showed pulmonary interstitial fibrotic changes. No evidence of pulmonary embolism. No change compared to last exam. EKG performed showing normal sinus rhythm voltage criteria for left ventricular hypertrophy. Troponin level negative. Magnesium level 1.4. Replacement has been ordered. Lactic acid 2.3 patient received 1 L normal saline in emergency room. X-ray performed showing no active cardiopulmonary disease. Minimal pulmonary fibrotic changes. No change. Patient currently on CIWA scale with Ativan. Cardiology consulted for chest pain. Neurology consulted for possible seizure. Patient states minimal improvement with chest pain. Patient currently on telemetry. Patient denies shortness of breath. Does complain of having diarrhea and some abdominal pain that started today. Amylase and lipase labs have been ordered. Denies any bloody emesis or stools at this time. Denies any urinary symptoms. On 12/08/2017. Patient is currently resting in bed. Patient is complaining of some mild chest pain. Cardiology services following. CT was ordered per neurology. Negative scan. Carotid Doppler completed showing measurements suggest close to 0% stenosis in both internal carotid arteries. EEG has also been completed. Patient denies nausea vomiting or diarrhea. Denies urinary symptoms. Denies shortness of breath Objective - Vital Signs Vital signs: Vital Signs Temp 97.4 F L 12/08/17 06:37 Pulse 92 12/08/17 08:03 Resp 16 12/08/17 06:37 BP 127/79 12/08/17 06:37 Pulse Ox 96 12/08/17 06:37 Intake & Output 12/07/17 12/08/17 12/08/17 18:59 06:59 18:59 Weight 83.461 kg Other: Voiding Method Toilet Toilet Urinal Urinal # Voids 3 2 # Bowel Movements 3 - Exam Head normocephalic Neck supple Lungs clear to auscultation bilaterally no wheezing or crackles Heart regular rate and rhythm S1-S2, no rub or gallop Abdomen is soft nontender nondistended positive bowel sounds no hepatosplenomegaly Extremities no edema Neuro alert and orientated to 3 - Labs CBC & Chem 7: 12/08/17 09:17 12/08/17 09:17 Labs: Abnormal Lab Results - Last 24 Hours (Table) 12/07/17 12/07/17 12/08/17 Range/Units 17:12 21:21 07:16 RBC (4.30-5.90) m/uL Hgb (13.0-17.5) gm/dL Hct (39.0-53.0) % MCHC (31.0-37.0) g/dL RDW (11.5-15.5) % Glucose (74-99) mg/dL POC Glucose (mg/dL) 119 H 116 H 120 H (75-99) mg/dL AST (17-59) U/L Alkaline Phosphatase (38-126) U/L 12/08/17 12/08/17 12/08/17 Range/Units 09:17 09:17 11:35 RBC 3.90 L (4.30-5.90) m/uL Hgb 10.3 L (13.0-17.5) gm/dL Hct 34.4 L (39.0-53.0) % MCHC 29.9 L (31.0-37.0) g/dL RDW 17.6 H (11.5-15.5) % Glucose 202 H (74-99) mg/dL POC Glucose (mg/dL) 158 H (75-99) mg/dL AST 87 H (17-59) U/L Alkaline Phosphatase 200 H (38-126) U/L Assessment and Plan Assessment: 1. Chest pain. Troponin level negative. EKG normal sinus rhythm voltage criteria for left ventricular hypertrophy. D-dimer on admission 1.42. CTA performed showing pulmonary interstitial fibrotic changes. No evidence of pulmonary embolism. No change compared to last exam. Chest X-ray performed showing no active come cardiopulmonary disease. Minimum positive pulmonary fibrotic changes. No change. Cardiology consult have been requested. Patient placed on telemetry. An acute coronary event has been ruled out with no EKG evidence of ischemia negative cardiac enzymes per cardiology. No further workup at this time 2. Possible seizure. Neurology consult have been requested. Patient recently admitted with witnessed seizure. Neurology following. EEG and computed tomography scan of the brain were normal at that time. Patient does report history of epilepsy as a child. CT of brain completed negative. Carotid Doppler completed showing measurements that suggest close to 0% stenosis in both internal carotid arteries. EEG has been ordered per neurology 3. History of alcohol dependence. Patient reports his last drink was 3 days ago. Alcohol withdrawal protocol has been ordered. Continue thiamine and multivitamin. 4. Elevated lactate acid. Received 1 L normal saline done emergency room. Metformin held 5. Hypomagnesemia. Magnesium replacement protocol. Home dose of Mag-Ox reordered for tomorrow 6. Abdominal pain. Patient does report he is having some diarrhea that started today. Amylase and lipase levels have been ordered. Lipase 161, amylase 80 7. History of paroxysmal atrial fibrillation: not on anticoagulation due to GI bleed 8. Diabetes mellitus type 2. Sliding scale coverage has been ordered. Metformin on hold 9. History of esophageal varices requiring EGD and ligation on 10/21/2017 10. History of pulmonary embolism. CTA this admission negative for pulmonary embolism. 11. Iron deficiency anemia. Continue iron supplement 12. History of TIA 13. Essential hypertension 14. History of COPD. No evidence of exacerbation at this time 15. Chronic liver cirrhosis with secondary portal hypertension. AST 105, ALT 62. We'll continue to monitor closely. AST improving 87, ALT 56 16. vitamin D deficiency. Continue Vitamin D 17. History of thrombocytopenia secondary to patient's liver disease. Current platelet level 291. Will Continue to monitor. Platelet count 250. GI prophylaxis Pepcid. DVT prophylaxis SCDs I performed an examination of the patient and discussed their management with the Nurse Practitioner. I have reviewed the Nurse Practitioner's notes and agree with the documented findings and plan of care
--- NOTE | 2017-12-08 15:44 | P.PN ---
Subjective Progress Note Date: 12/08/17 Principal diagnosis: Altered mental status/possible seizure Neurology is following on a 62-year-old male for possible seizure. Patient was brought to the emergency room after what appeared to be seizure-like activity at home. Patient stated he began having chest pain, started feeling palpitations and his chest and collapsed to the ground. Patient was reportedly witnessed to have some jerking activity and EMS was called by bystanders at the home. Patient's next recollection is being in the ambulance. Patient had no sphincter incontinence, tongue biting or other similar seizure activity. Patient states he did have a childhood history of seizures but not in his adult life. Patient does use alcohol but denies recent past used prior to admission. Patient's cardiac enzymes were normal. CBC showed anemia. Comprehensive metabolic profile showed elevated AST. On contact, the patient was alert and oriented 3, resting in bed in no acute distress. Patient denies any neurological status changes within the previous 24 hours. Patient denies any seizure-like activity within the last 24 hours. Nursing staff verifies no neurological status changes or seizure-like activity when the previous 24 hours. Testing results include CT brain which was negative, carotid Doppler which noted no stenosis/unremarkable. EEG has been ordered and is pending. Objective - Vital Signs Vital signs: Vital Signs Temp 98.2 F 12/08/17 15:00 Pulse 98 12/08/17 15:00 Resp 16 12/08/17 15:00 BP 121/74 12/08/17 15:00 Pulse Ox 94 L 12/08/17 15:00 Intake & Output 12/07/17 12/08/17 12/08/17 18:59 06:59 18:59 Weight 83.461 kg Other: Voiding Method Toilet Toilet Urinal Urinal # Voids 3 2 2 # Bowel Movements 3 1 - Exam Gen. appearance: Alert, in no apparent distress Head: Atraumatic normocephalic, normal inspection Eyes: Well appearance, PERRL, EOMI. absent: Scleral icterus, conjunctival injection, nystagmus, periorbital swelling. Ear nose and throat: Normal exam, mucous membranes moist Neck: Normal inspection. Absent tenderness, lymphadenopathy Respiratory: No increased work of breathing. Cardiovascular: Regular rate, normal rhythm GIabdominal: No guarding no tenderness Extremities: Full range of motion, normal capillary refill, no tenderness, pedal edema, joint swelling, calf tenderness Neurological: Alert and oriented 3, cranial nerves II through XII intact, no unilateral lateralizing weakness, no seizure activity noted on physical exam, no pronator drift and no nystagmus. Psychological: Mood and affect appropriate setting - Labs CBC & Chem 7: 12/08/17 09:17 12/08/17 09:17 Labs: Abnormal Lab Results - Last 24 Hours (Table) 12/07/17 12/07/17 12/08/17 Range/Units 17:12 21:21 07:16 RBC (4.30-5.90) m/uL Hgb (13.0-17.5) gm/dL Hct (39.0-53.0) % MCHC (31.0-37.0) g/dL RDW (11.5-15.5) % Glucose (74-99) mg/dL POC Glucose (mg/dL) 119 H 116 H 120 H (75-99) mg/dL AST (17-59) U/L Alkaline Phosphatase (38-126) U/L 12/08/17 12/08/17 12/08/17 Range/Units 09:17 09:17 11:35 RBC 3.90 L (4.30-5.90) m/uL Hgb 10.3 L (13.0-17.5) gm/dL Hct 34.4 L (39.0-53.0) % MCHC 29.9 L (31.0-37.0) g/dL RDW 17.6 H (11.5-15.5) % Glucose 202 H (74-99) mg/dL POC Glucose (mg/dL) 158 H (75-99) mg/dL AST 87 H (17-59) U/L Alkaline Phosphatase 200 H (38-126) U/L Assessment and Plan (1) Syncope and collapse Current Visit: Yes Status: Acute Code(s): R55 - SYNCOPE AND COLLAPSE SNOMED Code(s): 291792459 (2) Hepatic insufficiency Current Visit: Yes Status: Acute Code(s): K72.90 - HEPATIC FAILURE, UNSPECIFIED WITHOUT COMA SNOMED Code(s): 05164265 (3) Seizure Current Visit: Yes Status: Acute Code(s): R56.9 - UNSPECIFIED CONVULSIONS SNOMED Code(s): 30511039 (4) Anemia Current Visit: No Status: Acute Code(s): D64.9 - ANEMIA, UNSPECIFIED SNOMED Code(s): 257474348 Plan: 1. Syncope Defer to cardiology CT brain was negative for acute process Carotid Doppler no stenosis/unremarkable 2. hepatic insufficiency Continue management per primary care team 3. seizure Patient's symptoms and events appear questionable for seizure. She had no syncope or incontinence or tongue biting. Patient's EEG has been taken and is pending CT brain was negative for acute process Continue neurological checks every shift Notify neurology with any new seizure activity or other neurological status changes. 4. anemia Continue management per primary care team STATUS: Neurology will continue to follow on as-needed basis. If the patient's EEG is unremarkable or noncontributory, patient can be cleared from a neurological standpoint for discharge. If patient is discharged, notify patient to contact our office within 10-14 days for a follow-up visit in the office. I discussed the patients history, physical exam, diagnostic testing, lab work and imaging with Dr Man prior to implementing the plan above. He agrees with the plan as implemented prior to implementation.
[2017-12-08 17:08] LABS: Glucose,Whole Blood 98 mg/dL (75-99)
--- NOTE | 2017-12-08 18:59 | EEG ---
ELECTROENCEPHALOGRAM REPORT DATE OF SERVICE: 12/08/2017. REASON FOR TESTING: Seizure. DESCRIPTION OF THE PROCEDURE: This EEG was performed using a 21 channel digital electroencephalograph, following international 10-20 system. DESCRIPTION OF THE RECORDING: From the beginning of the tracing, and with patient's eyes closed, the background rhythm was mostly consisting of 9 Hz alpha frequency in the posterior occipital leads. No obvious asymmetry is seen. Photic stimulation was performed with a minimal driving response seen. No pathological waves were elicited. Hyperventilation was not performed. Occasional movement artifacts are seen. The patient remains awake throughout the tracing. No epileptiform discharges were seen. His EKG lead showed a regular rate and rhythm. INTERPRETATION: This awake EEG can be considered within normal limits. There was no asymmetry seen. No epileptiform discharges were noticed. The absence of epileptiform discharges does not rule out the diagnosis of epilepsy; therefore, clinical correlation is recommended. MMKEVIN / RENAEN: [id number] /
[2017-12-08 20:23] LABS: Glucose,Whole Blood 194 mg/dL (75-99)
[2017-12-09 06:13] VITALS: BP 116/72; TEMP 96.5
[2017-12-09] MEDS: ALBUTEROL NEBULIZED 2.5 MG/3 ML INHALATION PRN (07:22)
[2017-12-09] MEDS: INSULIN ASPART 100 UNIT/ML 1 ML 10 ML VIAL SQ SCH ×2 (07:25→12:41)
[2017-12-09 07:26] LABS: Glucose,Whole Blood 119 mg/dL (75-99)
[2017-12-09 07:33] VITALS: PULSE 86
[2017-12-09] MEDS: PANTOPRAZOLE 40 MG TABLET PO SCH (07:40)
[2017-12-09] MEDS: FAMOTIDINE 20 MG TAB PO SCH (07:40)
[2017-12-09] MEDS: FERROUS SULFATE 325 MG TAB PO SCH (07:40)
[2017-12-09] MEDS: MAGNESIUM OXIDE 400 MG TAB PO SCH (07:40)
[2017-12-09 08:00] LABS: Anisocytosis Slight; Basophils % (A) 1 %; Eosinophils # (A) 0.1 k/uL (0-0.7); Eosinophils % (A) 3 %; HCT 34.8 % (39.0-53.0); HGB 10.2 gm/dL (13.0-17.5); Hypochromasia Marked; Lymphocytes # (A) 1.4 k/uL (1.0-4.8); Lymphocytes % (A) 29 %; MCH 26.1 pg (25.0-35.0); MCHC 29.3 g/dL (31.0-37.0); MCV 89.3 fL (80.0-100.0); Mean Platelet Volume 6.7; Monocytes # (A) 0.3 k/uL (0-1.0); Monocytes % (A) 6 %; Neutrophils % (A) 60 %; Platelet Count 220 k/uL (150-450); RDW 17.3 % (11.5-15.5); WBC 4.9 k/uL (3.8-10.6)
[2017-12-09 09:07] LABS: ALT 62 U/L (21-72); AST 105 U/L (17-59); Albumin 3.6 g/dL (3.5-5.0); Alkaline Phosphatase 196 U/L (38-126); Anion Gap 11 mmol/L; Blood Urea Nitrogen 11 mg/dL (9-20); Carbon Dioxide 22 mmol/L (22-30); Chloride 107 mmol/L (98-107); Glucose 114 mg/dL (74-99); Potassium 4.3 mmol/L (3.5-5.1); Sodium 140 mmol/L (137-145); Total Bilirubin 0.8 mg/dL (0.2-1.3); Total Protein 7.5 g/dL (6.3-8.2)
[2017-12-09] MEDS: MULTIVITAMINS, THERA 1 EACH TAB PO SCH (11:13)
[2017-12-09] MEDS: CHOLECALCIFEROL 1,000 UNIT TAB PO SCH (11:13)
[2017-12-09] MEDS: THIAMINE 100 MG TAB PO SCH (11:13)
[2017-12-09 12:30] LABS: Glucose,Whole Blood 105 mg/dL (75-99)
--- NOTE | 2017-12-09 13:48 | P.PN ---
Subjective Progress Note Date: 12/09/17 Principal diagnosis: Alcohol withdrawal, left-sided chest wall pain, noncardiac, and nonpulmonary Progress note dated 12/08/2017 This is a 62-year-old male originally from [place] who presented with chest pain. The chest pain appears to be noncardiac in origin. Cardiac evaluation is currently negative. He also may have had an alcoholic related seizure. He did have a fall at home. In addition, he has a history of alcoholic cirrhosis diabetes hypertension hyperlipidemia childhood seizures previous history of pulmonary embolism chronic anemia, history of CVA and degenerative arthritis of the low back. The patient appears to be doing relatively well. His brain CT was negative for an acute event, his carotid Dopplers were negative and his CT angiogram did not show pulmonary embolism and only showed some very mild interstitial changes. Currently the patient is not having any difficulty in breathing and only complains what appears to be may be musculoskeletal and noncardiac chest pain. No active pulmonary issues at this time. On 12/09/2017 patient seen in follow-up on medical surgical floor. Awake and alert, oriented 3, focal neurological deficits, no recurrence of seizures. Neurology is following, denies any dyspnea, denies any chest congestion, wheezing or phlegm production. Still has the left-sided chest discomfort, worse with deep inspiration. Cardiac and pulmonary workup have been negative so far. We'll active pulmonary issues at this time. Pulse ox on room air is 96 %, patient is afebrile, hemodynamically stable. Lung sounds are clear to auscultation. No leukocytosis, actually it's and renal profile are normal. No evidence of delirium tremens. EEG results were noted, and there was no epileptiform discharges on the EEG. Carotid Doppler showed no stenosis, CT brain was negative. Objective - Vital Signs Vital signs: Vital Signs Temp 96.5 F L 12/09/17 05:58 Pulse 86 12/09/17 07:33 Resp 16 12/09/17 05:58 BP 116/72 12/09/17 05:58 Pulse Ox 96 12/09/17 07:25 Intake & Output 12/08/17 12/09/17 12/09/17 18:59 06:59 18:59 Other: Voiding Method Toilet Toilet Urinal Urinal # Voids 2 1 1 # Bowel Movements 1 - Exam No acute distress, oriented 3. No supplemental oxygen required HEENT examination is grossly unremarkable. Mucous membranes are moist. No oral lesions. Neck supple. Full range of motion. No adenopathy thyromegaly or neck vein distention. Cardiovascular examination reveals regular rhythm rate. S1-S2 normal. No S3 or S4. No discernible murmur noted. Lungs reveal clear breath sounds. His breath sounds are equal bilaterally. No adventitious lung sounds including wheezes rhonchi or crackles. Abdomen soft bowel sounds are heard. No masses or tenderness. Extremities are intact. No cyanosis clubbing or edema. Skin is without rash or lesion. Neurologic examination is brief but nonfocal. - Labs CBC & Chem 7: 12/09/17 07:36 12/09/17 07:36 Labs: Abnormal Lab Results - Last 24 Hours (Table) 12/08/17 12/09/17 12/09/17 Range/Units 20:17 07:24 07:36 RBC 3.90 L (4.30-5.90) m/uL Hgb 10.2 L (13.0-17.5) gm/dL Hct 34.8 L (39.0-53.0) % MCHC 29.3 L (31.0-37.0) g/dL RDW 17.3 H (11.5-15.5) % Glucose (74-99) mg/dL POC Glucose (mg/dL) 194 H 119 H (75-99) mg/dL AST (17-59) U/L Alkaline Phosphatase (38-126) U/L 12/09/17 12/09/17 Range/Units 07:36 12:28 RBC (4.30-5.90) m/uL Hgb (13.0-17.5) gm/dL Hct (39.0-53.0) % MCHC (31.0-37.0) g/dL RDW (11.5-15.5) % Glucose 114 H (74-99) mg/dL POC Glucose (mg/dL) 105 H (75-99) mg/dL AST 105 H (17-59) U/L Alkaline Phosphatase 196 H (38-126) U/L Assessment and Plan Plan: Assessment: #1. Chest pain, appears to be noncardiac in nature. Exacerbated by deep breathing and coughing, reproducible, left-sided, with radiation to the middle. Cardiac workup is negative #2. Possible episode of seizure #3. A fall at home #4. Elevated d-dimer, CT angios showed no evidence of pulmonary embolism, no pulmonary mass, no consolidation mild subpleural interstitial fibrotic changes #5. Mildly elevated lactic acid, without evidence of hypoperfusion #6. Nausea, decreased oral intake, possible mild dehydration #7. Chronic and ongoing alcohol abuse, last drink 3-4 days ago #8. Chronic alcoholic cirrhosis with portal hypertension and previous history of esophageal varices and GI bleeding #9. Diabetes mellitus #10. Hypertension, hyperlipidemia #11. Previous history of childhood seizure, which she outgrew in his teenage years, and had an isolated episode of seizure in early November 2017, not on any chronic anticonvulsants #12. History of pulmonary embolism, not on chronic anticoagulation due to history of GI bleeding #12. Chronic anemia #14. Previous history of CVA without any residual deficits #15. Degenerative arthritis involving the lower back, cervical disc disease and chronic back pain Plan: Patient remains stable from pulmonary standpoint, his left-sided chest discomfort not related to any active pulmonary issues. It is most likely is muscular skeletal in nature. No recurrence of seizures, no evidence of delirium tremens. From pulmonary standpoint he is stable, we will see him on as -needed basis. Thank you for this consultation. I performed a history & physical examination of the patient and discussed their management with my nurse practitioner, Aline Collins. I reviewed the nurse practitioner's note and agree with the documented findings and plan of care. Lung sounds are clear diminished at the bases. The findings and the impression was discussed with the patient. I attest to the documentation by the nurse practitioner. Time with Patient: Less than 30
--- NOTE | 2017-12-09 14:41 | P.DS ---
Providers Date of admission: 12/07/17 15:42 Expected date of discharge: 12/09/17 Attending physician: Charlette Finney Consults: 12/07/17 09:48 Consult Physician Routine Consulting Provider: Sarika Hathaway Consult Reason/Comments: chest Pain Do you want consulting provider notified?: Yes 12/07/17 09:49 Consult Physician Routine Consulting Provider: Isidro Man Consult Reason/Comments: possible seizure Do you want consulting provider notified?: Yes 12/07/17 12:01 Consult Physician Routine Consulting Provider: Dionicio Harkins Consult Reason/Comments: follows patient outpatient for previous Pneumonia, Hx COPD Do you want consulting provider notified?: Yes Primary care physician: Yoon Phillips Hospital Course: Discharge diagnosis 1. Chest pain. Troponin level negative 3. EKG normal sinus rhythm voltage criteria for left ventricular hypertrophy. D-dimer on admission 1.42. CTA performed showing pulmonary interstitial fibrotic changes. No evidence of pulmonary embolism. No change compared to last exam. Chest X-ray performed showing no active come cardiopulmonary disease. Minimum positive pulmonary fibrotic changes. No change. Cardiology consult have been requested. Patient placed on telemetry. An acute coronary event has been ruled out with no EKG evidence of ischemia negative cardiac enzymes per cardiology. No further workup at this time. Patient had another troponin repeated today. Negative. Likely chest discomfort is more musculoskeletal. 2. Possible seizure likely alcohol induced. Neurology consult have been requested. Patient recently admitted with witnessed seizure. Neurology following. EEG and computed tomography scan of the brain were normal at that time. Patient does report history of epilepsy as a child. CT of brain completed negative. Carotid Doppler completed showing measurements that suggest close to 0% stenosis in both internal carotid arteries. EEG negative for any seizure activity 3. History of alcohol dependence. Patient reports his last drink was 3 days ago. Alcohol withdrawal protocol has been ordered. Continue thiamine and multivitamin. 4. Elevated lactate acid. Received 1 L normal saline done emergency room. Metformin held 5. Hypomagnesemia. Magnesium replacement protocol. Home dose of Mag-Ox reordered for tomorrow 6. Abdominal pain and episodes of diarrhea. Now resolved. Amylase lipase normal. 7. History of paroxysmal atrial fibrillation: not on anticoagulation due to GI bleed 8. Diabetes mellitus type 2 9. History of esophageal varices requiring EGD and ligation on 10/21/2017 10. History of pulmonary embolism. CTA this admission negative for pulmonary embolism. 11. Iron deficiency anemia. Continue iron supplement 12. History of TIA 13. Essential hypertension 14. History of COPD. No evidence of exacerbation at this time 15. Chronic liver cirrhosis with secondary portal hypertension. AST 105, ALT 62. We'll continue to monitor closely. AST improving 87, ALT 56 16. vitamin D deficiency. Continue Vitamin D 17. History of thrombocytopenia secondary to patient's liver disease. Current platelet level 291. Will Continue to monitor. Platelet count 250. 18. Possible syncopal episode. No significant arrhythmia noted. Patient seen evaluated by cardiology and neurology. Computed tomography scan of the brain negative. Carotid Doppler no significant hemodynamic stenosis. Hospital course This is a 62-year-old male patient of Dr. Phillips who presented to the emergency room after he started to experience chest pain that started this morning. Patient states that he further collapsed to the ground but was unsure if he had a possible seizure. Patient also reports that he had been feeling shaky throughout the day. Patient also states that he could be withdrawing from alcohol as his last drink was 3 days ago. Patient has a known past medical history of atrial fibrillation and not on anticoagulation due to previous GI bleed, COPD, diabetes mellitus type 2, hyperlipidemia, hypertension , PE, esophageal varices with bleeding requiring EGD and ligation in October 2017 and TIA. Patient had an elevated d-dimer on admission at 1.42. CTA of the chest showed pulmonary interstitial fibrotic changes. No evidence of pulmonary embolism. No change compared to last exam. EKG performed showing normal sinus rhythm voltage criteria for left ventricular hypertrophy. Troponin level negative. Magnesium level 1.4. Replacement has been ordered. Lactic acid 2.3 patient received 1 L normal saline in emergency room. X-ray performed showing no active cardiopulmonary disease. Minimal pulmonary fibrotic changes. No change. Patient currently on CIWA scale with Ativan. Cardiology consulted for chest pain. Neurology consulted for possible seizure. Patient states minimal improvement with chest pain. Patient currently on telemetry. Patient denies shortness of breath. Does complain of having diarrhea and some abdominal pain that started today. Amylase and lipase labs have been ordered. Denies any bloody emesis or stools at this time. Denies any urinary symptoms. On 12/08/2017. Patient is currently resting in bed. Patient is complaining of some mild chest pain. Cardiology services following. CT was ordered per neurology. Negative scan. Carotid Doppler completed showing measurements suggest close to 0% stenosis in both internal carotid arteries. EEG has also been completed. Patient denies nausea vomiting or diarrhea. Denies urinary symptoms. Denies shortness of breath 12/09/2017 patient has been cleared by cardiology, pulmonary service and neurology for discharge. He initially presented with chest pain and possible seizure. VT and acute coronary syndrome or ruled out during this admission. Likely patient's pain is due to musculoskeletal pain. He's had no further seizure activity this also may be related to alcohol withdrawal. Patient seen evaluated by neurology and recommended he will follow-up in the office. Patient also reported some dry heaves this morning now resolved. Recommend that he continues his Protonix 40 mg twice a day and can try Pepto-Bismol over- the-counter if needed. Patient is medically stable for discharge. Please refer to chart for any further details. I performed an examination of the patient and discussed their management with the physician Citrus Picker. I have reviewed the Physician Citrus Picker's notes and agree with the documented findings and plan of care Patient Condition at Discharge: Stable Plan - Discharge Summary Discharge Rx Participant: Yes New Discharge Prescriptions: Continue Docusate [Colace] 100 mg PO DAILY PRN #20 capsule PRN Reason: Constipation Ferrous Sulfate [Feosol] 325 mg PO DAILY #30 tab metFORMIN HCL 1,000 mg PO BID Magnesium Oxide 400 mg PO DAILY #30 tablet Pantoprazole [Protonix] 40 mg PO AC-BID #60 tablet. Folic Acid 1 mg PO DAILY Multivitamins, Thera [Multivitamin (formulary)] 1 tab PO DAILY Thiamine [Vitamin B-1] 100 mg PO DAILY Nadolol [Corgard] 20 mg PO DAILY #30 tab Cholecalciferol [Vitamin D3] 2,000 unit PO DAILY@1200 #30 tab Albuterol Nebulized [Ventolin Nebulized] 2.5 mg INHALATION RT-Q6H PRN PRN Reason: Shortness Of Breath Discharge Medication List Docusate [Colace] 100 mg PO DAILY PRN #20 capsule 08/27/17 [Rx] Ferrous Sulfate [Feosol] 325 mg PO DAILY #30 tab 08/27/17 [Rx] metFORMIN HCL 1,000 mg PO BID 09/23/17 [History] Magnesium Oxide 400 mg PO DAILY #30 tablet 09/24/17 [Rx] Pantoprazole [Protonix] 40 mg PO AC-BID #60 tablet.dr 10/25/17 [Rx] Folic Acid 1 mg PO DAILY 11/09/17 [History] Multivitamins, Thera [Multivitamin (formulary)] 1 tab PO DAILY 11/09/17 [History ] Thiamine [Vitamin B-1] 100 mg PO DAILY 11/09/17 [History] Nadolol [Corgard] 20 mg PO DAILY #30 tab 11/11/17 [Rx] Cholecalciferol [Vitamin D3] 2,000 unit PO DAILY@1200 #30 tab 11/26/17 [Rx] Albuterol Nebulized [Ventolin Nebulized] 2.5 mg INHALATION RT-Q6H PRN 12/06/17 [ History] Follow up Appointment(s)/Referral(s): Yoon Phillips DO [Primary Care Provider] - 1 Week Isidro Man MD [STAFF PHYSICIAN] - 10 Days Activity/Diet/Wound Care/Special Instructions: diet: Cardiac Activity: as tolerated Avoid alcohol use Discharge Disposition: HOME SELF-CARE
== END 2017-12-09 15:15 | disposition home or self-care (01) | DRG 897 ==
LOC: EC 21:39 → 3OBS 12-07 00:53 → 4MS4W 12-07 07:55 → OBSVTOIN 12-07 15:42
PROVIDERS: ADMIT Internal Medicine; ATTEND Internal Medicine
DX: F10.231 Alcohol dependence with withdrawal delirium (principal); G40.89 Other seizures; K76.6 Portal hypertension; E87.2 Acidosis; R07.89 Other chest pain; E83.42 Hypomagnesemia; I48.0 Paroxysmal atrial fibrillation; E11.9 Type 2 diabetes mellitus without complications; R19.7 Diarrhea, unspecified; D50.9 Iron deficiency anemia, unspecified; I10 Essential (primary) hypertension; D69.59 Other secondary thrombocytopenia; E55.9 Vitamin D deficiency, unspecified; E78.5 Hyperlipidemia, unspecified; J44.9 Chronic obstructive pulmonary disease, unspecified; R79.1 Abnormal coagulation profile; F32.9 Major depressive disorder, single episode, unspecified; F41.9 Anxiety disorder, unspecified; K21.9 Gastro-esophageal reflux disease without esophagitis; M46.96 Unspecified inflammatory spondylopathy, lumbar region; M50.80 Other cervical disc disorders, unspecified cervical region; K70.30 Alcoholic cirrhosis of liver without ascites; W19.XXXA Unspecified fall, initial encounter; Z86.73 Personal history of transient ischemic attack (TIA), and cerebral infarction without residual deficits; Z86.711 Personal history of pulmonary embolism; Y92.039 Unspecified place in apartment as the place of occurrence of the external cause; Z79.84 Long term (current) use of oral hypoglycemic drugs; Z79.899 Other long term (current) drug therapy; Z82.3 Family history of stroke; Z82.5 Family history of asthma and other chronic lower respiratory diseases; Z87.01 Personal history of pneumonia (recurrent); Z90.49 Acquired absence of other specified parts of digestive tract
CPT/HCPCS: 36415; 70450; 71046; 71275; 80053; 82150; 82550; 82553; 83605; 83690; 83735; 84484; 85025; 85379; 85610; 85730; 93005; 93880; 94640; 94760; 95816; 96360; 96361; 96372; 99285

== ENCOUNTER 2017-12-21 21:29 | Observation (INO) | payer OTHER ==
[2017-12-21] MEDS ORDERED: SODIUM CHLORIDE 0.9% 500 ML 500 ML IV STA (22:12)
[2017-12-21 22:38] LABS: Anisocytosis Slight; Basophils % (A) 0 %; Eosinophils # (A) 0.1 k/uL (0-0.7); Eosinophils % (A) 2 %; HCT 34.3 % (39.0-53.0); HGB 10.8 gm/dL (13.0-17.5); Hypochromasia Moderate; Lymphocytes # (A) 1.5 k/uL (1.0-4.8); Lymphocytes % (A) 34 %; MCH 27.7 pg (25.0-35.0); MCHC 31.6 g/dL (31.0-37.0); MCV 87.9 fL (80.0-100.0); Mean Platelet Volume 7.7; Monocytes # (A) 0.3 k/uL (0-1.0); Monocytes % (A) 8 %; Neutrophils # (A) 2.3 k/uL (1.3-7.7); Neutrophils % (A) 53 %; Platelet Count 141 k/uL (150-450); RDW 18.5 % (11.5-15.5); WBC 4.3 k/uL (3.8-10.6)
[2017-12-21 22:45] LABS: Appearance,Urine Cloudy (Clear); Bilirubin,Urine Negative (Negative); Blood,Urine Negative (Negative); Calcium Oxalate Crystals,Urine Occasional /hpf; Color,Urine Yellow; Glucose,Urine (UA) Negative (Negative); Hyaline Casts,Urine 6 /lpf (0-2); Ketones,Urine Negative (Negative); Leukocyte Esterase,Urine Negative (Negative); Mucus,Urine Rare /hpf; Nitrite,Urine Negative (Negative); Protein,Urine 1+ (Negative); RBC,Urine 1 /hpf (0-5); Specific Gravity,Urine 1.024 (1.001-1.035); Squamous Epithelial Cell,Urine <1 /hpf (0-4); WBC,Urine 1 /hpf (0-5)
[2017-12-21 22:50] LABS: ALT 58 U/L (21-72); AST 113 U/L (17-59); Albumin 3.7 g/dL (3.5-5.0); Alkaline Phosphatase 136 U/L (38-126); Amylase 98 U/L (30-110); Anion Gap 12 mmol/L; Blood Urea Nitrogen 10 mg/dL (9-20); Calcium 8.8 mg/dL (8.4-10.2); Carbon Dioxide 25 mmol/L (22-30); Chloride 107 mmol/L (98-107); Glucose 135 mg/dL (74-99); Lipase 219 U/L (23-300); Potassium 3.9 mmol/L (3.5-5.1); Sodium 144 mmol/L (137-145); Total Bilirubin 0.3 mg/dL (0.2-1.3); Total Protein 7.5 g/dL (6.3-8.2)
--- NOTE | 2017-12-22 01:09 | CT ---
EXAMINATION TYPE: CT abdomen pelvis w con DATE OF EXAM: 12/22/2017 COMPARISON: 08/24/2017 HISTORY: bi-lateral flank pain CT DLP: 592.20 mGycm Automated exposure control for dose reduction was used. TECHNIQUE: Helical acquisition of images was performed from the lung bases through the pelvis. CONTRAST: Performed without Oral Contrast and with IV Contrast, patient injected with 100 mL of Isovue 300. FINDINGS: There is some coarse interstitial density at the lung bases. There is no pleural effusion. Heart size is normal. There is no pericardial effusion. Liver shows no focal defect. There are clips from cholecystectomy. Spleen appears normal. There is no pancreatic mass. There is mild fat stranding superior to the pancreatic head. There is also some mil d thickening of the left lateral perirenal space. There is no adrenal mass. Kidneys show satisfactory contrast opacification. There is no hydronephrosi s. Ureters are not dilated. There are clips probably from appendectomy. I see no intestinal wall thic kening. There are no dilated loops. There is no ascites. Bladder distends smoothly. There is no pelvi c mass. There is 8 mm cortical cyst on the upper pole left kidney. There are some spondylotic changes in the lumbar spine. I see no bony destructive process. There is no retroperitoneal adenopathy. I se e no mesenteric adenopathy. IMPRESSION: NO EVIDENCE OF RENAL STONE OR OBSTRUCTION. THERE IS EVIDENCE OF SOME NONSPECIFIC MILD INFLAMMATORY CH HERB IN THE RETROPERITONEUM UPPER ABDOMEN ABOVE THE PANCREATIC HEAD THAT IS INCREASED COMPARED TO LAS T EXAM. THIS IS AROUND THE PORTAL VEIN AND COULD RELATE TO SOME VASCULITIS. THIS COULD BE THE SEQUELA OF OLD PANCREATITIS. There is clearing of the ascites fluid compared to 04/23/2017.
--- NOTE | 2017-12-22 01:39 | ED ---
General Adult HPI - General Chief complaint: Abdominal Pain Stated complaint: abd pain Time Seen by Provider: 12/21/17 21:54 Source: patient, EMS, RN notes reviewed Mode of arrival: EMS Limitations: no limitations - History of Present Illness Initial comments: 62-year-old male presents to the emergency department for a chief complaint of bilateral flank pain x 2 days. Patient states the pain comes and goes and feels like a pressure in his lower back. Patient states he has had mild dysuria for the past few days as well. Patient denies fevers or chills at home. Patient denies any nausea or vomiting. Patient states his bowel movements have been normal. Patient denies any recent injuries. Patient denies any testicular pain. Patient denies fevers or chills at home. Patient was recently admitted for pneumonia and treated on IV antibiotics but was not given oral antibiotics. Patient has no other complaints at this time including shortness of breath, chest pain, abdominal pain, nausea or vomiting, headache, or visual changes. - Related Data Home Medications Medication Instructions Recorded Confirmed metFORMIN HCL 1,000 mg PO BID 09/23/17 12/21/17 Folic Acid 1 mg PO DAILY 11/09/17 12/21/17 Multivitamins, Thera [Multivitamin 1 tab PO DAILY 11/09/17 12/21/17 (formulary)] Thiamine [Vitamin B-1] 100 mg PO DAILY 11/09/17 12/21/17 Albuterol Nebulized [Ventolin 2.5 mg INHALATION RT-Q6H PRN 12/06/17 12/21/17 Nebulized] Previous Rx's Medication Instructions Recorded Docusate [Colace] 100 mg PO DAILY PRN #20 capsule 08/27/17 Ferrous Sulfate [Feosol] 325 mg PO DAILY #30 tab 08/27/17 Magnesium Oxide 400 mg PO DAILY #30 tablet 09/24/17 Pantoprazole [Protonix] 40 mg PO AC-BID #60 tablet. 10/25/17 Nadolol [Corgard] 20 mg PO DAILY #30 tab 11/11/17 Cholecalciferol [Vitamin D3] 2,000 unit PO DAILY@1200 #30 tab 11/26/17 Allergies Allergy/AdvReac Type Severity Reaction Status Date / Time adhesive tape Allergy Rash/Hives Verified 12/21/17 23:12 egg AdvReac Nausea & Verified 12/21/17 23:12 Vomiting lisinopril AdvReac EYES Verified 12/21/17 23:12 BURN&ITCH/WEAKNESS tomato AdvReac Nausea & Verified 12/21/17 23:12 Vomiting & Diarrhea Review of Systems ROS Statement: Those systems with pertinent positive or pertinent negative responses have been documented in the HPI. ROS Other: All systems not noted in ROS Statement are negative. Past Medical History Past Medical History: Atrial Fibrillation, Chest Pain / Angina, COPD, CVA/TIA, Diabetes Mellitus, GERD/Reflux, GI Bleed, Hyperlipidemia, Hypertension, Pulmonary Embolus (PE) Additional Past Medical History / Comment(s): Alcoholism, chronic alcoholic cirrhosis with portal hypertension and previous history of GI bleeding, esophageal varices, diabetes mellitus, hypertension, hyperlipidemia, previous history of childhood seizure which he outgrew not taking any antiepileptic medication, history of atrial fibrillation, history of pulmonary embolism, hypertension, hyperlipidemia, previous history of GI bleed, previous history of CVA without any residual deficits. He also has history of diverticulosis, chronic lower extremity ankle edema, previous history of septicemia, cervical disc disease with chronic back pain, degenerative arthritis involving the lower back, tinnitus History of Any Multi-Drug Resistant Organisms: None Reported Past Surgical History: Appendectomy, Cholecystectomy Additional Past Surgical History / Comment(s): 07/20/17 EGD, 03/21/17 EGD/ colonoscopy, other colonoscopies. Past Anesthesia/Blood Transfusion Reactions: Previous Problems w/ Anesthesia Additional Past Anesthesia/Blood Transfusion Reaction / Comment(s): after appendix removed sob Past Psychological History: Anxiety, Depression Smoking Status: Never smoker Past Alcohol Use History: Occasional Past Drug Use History: None Reported - Past Family History Mother Family Medical History: COPD, CVA/TIA, Dementia Additional Family Medical History / Comment(s): from a stroke Father Family Medical History: Pneumonia Additional Family Medical History / Comment(s): Father of pneumonia when he was close to 80 yrs old. General Exam Limitations: no limitations General appearance: alert, in no apparent distress Head exam: Present: atraumatic, normocephalic, normal inspection Eye exam: Present: normal appearance. Absent: scleral icterus, conjunctival injection ENT exam: Present: normal exam, normal oropharynx, mucous membranes moist, TM's normal bilaterally, normal external ear exam Neck exam: Present: normal inspection, full ROM. Absent: tenderness, meningismus, lymphadenopathy Respiratory exam: Present: normal lung sounds bilaterally. Absent: respiratory distress, wheezes, rales, rhonchi, stridor Cardiovascular Exam: Present: regular rate, normal rhythm, normal heart sounds. Absent: systolic murmur, diastolic murmur, rubs, gallop, clicks GI/Abdominal exam: Present: soft, tenderness (Patient has right lower quadrant and left lower quadrant pain to deep palpation. Negative obturator sign. Negative psoas sign. Negative Shaw sign), normal bowel sounds. Absent: distended, guarding, rebound, rigid Back exam: Present: CVA tenderness (R) (Very mild), CVA tenderness (L) (Minimal) . Absent: vertebral tenderness Neurological exam: Present: alert, oriented X3, CN II-XII intact Psychiatric exam: Present: normal affect, normal mood Course Vital Signs 12/21/17 12/22/17 21:30 01:15 Temperature 98.4 F Pulse Rate 107 H 98 Respiratory 20 16 Rate Blood Pressure 134/82 170/83 O2 Sat by Pulse 92 L 94 L Oximetry Medical Decision Making - Medical Decision Making 62-year-old male presented to the emergency department for bilateral flank pain as well as dysuria for about 2 days. Patient denies abdominal pain however is tender in the right and left lower quadrant on exam. Patient has a complex medical history.Hemoglobin 10.8 which is increased from hospitalization 2 weeks ago. ALT and alkaline phosphatase elevated to patient's baseline according to past labs. CT abdomen and pelvis shows no evidence of renal stone or obstruction. There is some evidence of nonspecific mild inflammatory change in the retroperitoneum upper abdomen above the pancreatic head that is increased compared to last exam. This could relate to some vasculitis around the portal vein. On reevaluation patient is complaining of nausea. He is also having increased pain. Patient does have multiple comorbidities and will be admitted to the hospital for intractable abdominal pain. - Lab Data Result diagrams: 12/21/17 21:35 12/21/17 21:35 Lab Results 12/21/17 12/21/17 12/21/17 Range/Units 21:35 21:35 21:35 WBC 4.3 (3.8-10.6) k/uL RBC 3.90 L (4.30-5.90) m/uL Hgb 10.8 L (13.0-17.5) gm/dL Hct 34.3 L (39.0-53.0) % MCV 87.9 (80.0-100.0) fL MCH 27.7 (25.0-35.0) pg MCHC 31.6 (31.0-37.0) g/dL RDW 18.5 H (11.5-15.5) % Plt Count 141 L (150-450) k/uL Neutrophils % 53 % Lymphocytes % 34 % Monocytes % 8 % Eosinophils % 2 % Basophils % 0 % Neutrophils # 2.3 (1.3-7.7) k/uL Lymphocytes # 1.5 (1.0-4.8) k/uL Monocytes # 0.3 (0-1.0) k/uL Eosinophils # 0.1 (0-0.7) k/uL Basophils # 0.0 (0-0.2) k/uL Hypochromasia Moderate Anisocytosis Slight Sodium 144 (137-145) mmol/L Potassium 3.9 (3.5-5.1) mmol/L Chloride 107 (98-107) mmol/L Carbon Dioxide 25 (22-30) mmol/L Anion Gap 12 mmol/L BUN 10 (9-20) mg/dL Creatinine 0.90 (0.66-1.25) mg/dL Est GFR (CKD-EPI)AfAm >90 (>60 ml/min/1.73 sqM) Est GFR (CKD-EPI)NonAf >90 (>60 ml/min/1.73 sqM) Glucose 135 H (74-99) mg/dL Calcium 8.8 (8.4-10.2) mg/dL Total Bilirubin 0.3 (0.2-1.3) mg/dL AST 113 H (17-59) U/L ALT 58 (21-72) U/L Alkaline Phosphatase 136 H (38-126) U/L Total Protein 7.5 (6.3-8.2) g/dL Albumin 3.7 (3.5-5.0) g/dL Amylase 98 (30-110) U/L Lipase 219 (23-300) U/L Urine Color Yellow Urine Appearance Cloudy (Clear) Urine pH 6.0 (5.0-8.0) Ur Specific [place] 1.024 (1.001-1.035) Urine Protein 1+ H (Negative) Urine Glucose (UA) Negative (Negative) Urine Ketones Negative (Negative) Urine Blood Negative (Negative) Urine Nitrite Negative (Negative) Urine Bilirubin Negative (Negative) Urine Urobilinogen 2.0 (<2.0) mg/dL Ur Leukocyte Esterase Negative (Negative) Urine RBC 1 (0-5) /hpf Urine WBC 1 (0-5) /hpf Ur Squamous Epith Cells <1 (0-4) /hpf Calcium Oxalate Crystal Occasional H (None) /hpf Hyaline Casts 6 H (0-2) /lpf Urine Mucus Rare H (None) /hpf Disposition Clinical Impression: Intractable abdominal pain Disposition[facility] Condition: Good Instructions: Abdominal Pain (ED) Is patient prescribed a controlled substance at d/c from ED?: No Referrals: Yoon Phillips DO [Primary Care Provider] - 1-2 days Time of Disposition: 02:41
[2017-12-22] MEDS ORDERED: ONDANSETRON 4 MG/2 ML VIAL IVP STA (01:50)
[2017-12-22] MEDS ORDERED: ACETAMINOPHEN TAB 325 MG TAB PO PRN (02:41)
[2017-12-22] MEDS ORDERED: HYDROcodone/APAP 5-325MG 1 EACH TAB PO PRN (02:41)
[2017-12-22] MEDS ORDERED: IBUPROFEN 400 MG TAB PO PRN (02:41)
[2017-12-22] MEDS ORDERED: NALOXONE 0.4 MG/ML 1 ML VIAL IV PRN (02:41)
[2017-12-22] MEDS ORDERED: DOCUSATE 100 MG CAP PO PRN (02:44)
[2017-12-22] MEDS: SODIUM CHLORIDE 0.9% 1,000 ML IV SCH ×2 (02:48→18:09)
[2017-12-22] MEDS ORDERED: VANCOMYCIN 1,000 MG in SODIUM CHLORIDE 0.9% 250 ML IVPB ONE (04:00)
[2017-12-22 05:27] VITALS: BMI 27.2
[2017-12-22] MEDS: ONDANSETRON 4 MG/2 ML VIAL IVP PRN ×2 (05:30→18:10)
[2017-12-22] MEDS: MORPHINE SULFATE 4 MG/ML SYRINGE IV PRN ×2 (05:30→20:49)
[2017-12-22] MEDS: amLODIPine 5 MG TAB PO SCH ×3 (06:54→20:50)
[2017-12-22] MEDS: ALBUTEROL NEBULIZED 2.5 MG/3 ML INHALATION PRN ×2 (07:07→20:05)
[2017-12-22 07:44] LABS: Glucose,Whole Blood 165 mg/dL (75-99)
[2017-12-22] MEDS: MAGNESIUM OXIDE 400 MG TAB PO SCH (08:47)
[2017-12-22] MEDS: PANTOPRAZOLE 40 MG TABLET PO SCH ×2 (08:47→18:10)
[2017-12-22] MEDS: FOLIC ACID 1 MG TAB PO SCH (08:47)
[2017-12-22] MEDS: FERROUS SULFATE 325 MG TAB PO SCH (08:47)
[2017-12-22] MEDS: NADOLOL 20 MG TAB PO SCH (08:47)
[2017-12-22] MEDS: THIAMINE 100 MG TAB PO SCH (08:48)
--- NOTE | 2017-12-22 10:54 | P.GSCN ---
History of Present Illness Consult date: 12/22/17 Reason for Consult: 62-year-old male being seen by surgical service at the request of the attending for surgical eval for bilateral lower back pain. Patient has poor recall and has difficulty differentiating abdominal discomfort when questioning patient states the pain started several days ago points to the bilateral lower abdomen. States the pain is more tender on the right than the left denied any nausea or vomiting with the pain. Stated there was nothing that seemed to aggravated questioning patient patient states he has not had any prior episodes. Patient was discharged on December 09 at that time patient was worked up for chest pain with negative troponin with a negative cardiac workup. Cardiology did evaluate the patient at that time. Corinne that the chest discomfort was likely musculoskeletal. Patient does have a history of alcohol dependency. Patient stated his last drink was last Wednesday was beer no liquor. Patient states he's trying to cut down on his alcohol intake. Reviewing prior computerized records patient did have an EGD with ligation of esophageal varices on 10/21/2017 In the emergency room December 22 computed tomography scan without oral contrast with IV contrast reviewing the computerized report indicate no evidence of a renal stone or obstruction. There is evidence of nonspecific mild inflammatory changes in the retroperitoneal upper abdomen above the pancreatic head that is increased compared to last exam. This is noted to be around the portal vein could be related to some vasculitis Lipase 219 amylase 98 AST 113 ALT 58 Past surgical history appendectomy, cholecystectomy Past medical history alcohol dependency, type 2 diabetes, paroxysmal atrial fibrillation on no anticoagulation due to a recent GI bleed History of a pulmonary emboli with a recent computed tomography scan negative for pulmonary emboli in November 2017 Iron deficiency anemia Review of Systems Essentially unremarkable except as mentioned in the present illness Past Medical History Past Medical History: Atrial Fibrillation, Chest Pain / Angina, COPD, CVA/TIA, Diabetes Mellitus, GERD/Reflux, GI Bleed, Hyperlipidemia, Hypertension, Pneumonia, Pulmonary Embolus (PE) Additional Past Medical History / Comment(s): Alcoholism, chronic alcoholic cirrhosis with portal hypertension and previous history of GI bleeding, esophageal varices, diabetes mellitus, hypertension, hyperlipidemia, previous history of childhood seizure which he outgrew not taking any antiepileptic medication, history of atrial fibrillation, history of pulmonary embolism, hypertension, hyperlipidemia, previous history of GI bleed, previous history of CVA without any residual deficits. He also has history of diverticulosis, chronic lower extremity ankle edema, previous history of septicemia, cervical disc disease with chronic back pain, degenerative arthritis involving the lower back, tinnitus History of Any Multi-Drug Resistant Organisms: None Reported Past Surgical History: Appendectomy, Cholecystectomy Additional Past Surgical History / Comment(s): 07/20/17 EGD, 03/21/17 EGD/ colonoscopy, other colonoscopies. Past Anesthesia/Blood Transfusion Reactions: Previous Problems w/ Anesthesia Additional Past Anesthesia/Blood Transfusion Reaction / Comm: after appendix removed sob Smoking Status: Never smoker - Past Family History Mother Family Medical History: COPD, CVA/TIA, Dementia Additional Family Medical History / Comment(s): from a stroke Father Family Medical History: Pneumonia Additional Family Medical History / Comment(s): Father of pneumonia when he was close to 80 yrs old. Medications and Allergies Home Medications Medication Instructions Recorded Confirmed Type Docusate [Colace] 100 mg PO DAILY PRN #20 capsule 08/27/17 12/22/17 Rx Ferrous Sulfate [Feosol] 325 mg PO DAILY #30 tab 08/27/17 12/22/17 Rx metFORMIN HCL 1,000 mg PO BID 09/23/17 12/22/17 History Magnesium Oxide 400 mg PO DAILY #30 tablet 09/24/17 12/22/17 Rx Pantoprazole [Protonix] 40 mg PO AC-BID #60 tablet.dr 10/25/17 12/22/17 Rx Folic Acid 1 mg PO DAILY 11/09/17 12/22/17 History Multivitamins, Thera [Multivitamin 1 tab PO DAILY 11/09/17 12/22/17 History (formulary)] Thiamine [Vitamin B-1] 100 mg PO DAILY 11/09/17 12/22/17 History Nadolol [Corgard] 20 mg PO DAILY #30 tab 11/11/17 12/22/17 Rx Cholecalciferol [Vitamin D3] 2,000 unit PO DAILY@1200 #30 tab 11/26/17 12/22/17 Rx Albuterol Nebulized [Ventolin 2.5 mg INHALATION RT-Q6H PRN 12/06/17 12/22/17 History Nebulized] Nadolol [Corgard] 20 mg PO DAILY 12/22/17 12/22/17 History Ondansetron HCl 8 mg PO DAILY 12/22/17 12/22/17 History Allergies Allergy/AdvReac Type Severity Reaction Status Date / Time adhesive tape Allergy Rash/Hives Verified 12/22/17 05:14 egg AdvReac Nausea & Verified 12/22/17 05:14 Vomiting lisinopril AdvReac EYES Verified 12/22/17 05:14 BURN&ITCH/WEAKNESS tomato AdvReac Nausea & Verified 12/22/17 05:14 Vomiting & Diarrhea Surgical - Exam Vital Signs Temp Pulse Resp BP Pulse Ox 98.4 F 107 H 20 134/82 92 L 12/21/17 21:30 12/21/17 21:30 12/21/17 21:30 12/21/17 21:30 12/21/17 21:30 GENERAL APPEARANCE: 62 -year-old patient is alert, oriented x 3 Talkative appears in no acute distress VITAL SIGNS: Reviewed HEENT: Head is normocephalic and atraumatic. Pupils are equal and reactive. The nares are patent. Oropharynx is clear without lesions. NECK: Supple without lymphadenopathy. Traches midline. HEART: S1, S2. Regular rate and rhythm. Denying chest pain LUNGS: No crackles or wheezes are heard. Adequate air movement on room air ABDOMEN: Soft, mild tenderness to the right and left lower quadrant right greater than the left. Soft no facial grimacing with palpitation to the abdominal wall not able to appreciate any CVA tenderness bilaterally, nondistended with good bowel sounds. No peritoneal signs. No palpable organomegaly or masses. Reports no nausea no vomiting EXTREMITIES: Normal skin color and turgor. No cyanosis, rash, ulceration, clubbing or edema. Radial pedal pulses are 2/4 bilaterally. NEUROLOGICAL: No focal deficits. Strength and sensation are grossly intact. Results - Labs 12/21/17 21:35 12/21/17 21:35 Abnormal Lab Results - Last 24 Hours (Table) 12/21/17 12/21/17 12/21/17 Range/Units 21:35 21:35 21:35 RBC 3.90 L (4.30-5.90) m/uL Hgb 10.8 L (13.0-17.5) gm/dL Hct 34.3 L (39.0-53.0) % RDW 18.5 H (11.5-15.5) % Plt Count 141 L (150-450) k/uL Glucose 135 H (74-99) mg/dL POC Glucose (mg/dL) (75-99) mg/dL AST 113 H (17-59) U/L Alkaline Phosphatase 136 H (38-126) U/L Urine Protein 1+ H (Negative) Calcium Oxalate Crystal Occasional H (None) /hpf Hyaline Casts 6 H (0-2) /lpf Urine Mucus Rare H (None) /hpf 12/22/17 Range/Units 07:35 RBC (4.30-5.90) m/uL Hgb (13.0-17.5) gm/dL Hct (39.0-53.0) % RDW (11.5-15.5) % Plt Count (150-450) k/uL Glucose (74-99) mg/dL POC Glucose (mg/dL) 165 H (75-99) mg/dL AST (17-59) U/L Alkaline Phosphatase (38-126) U/L Urine Protein (Negative) Calcium Oxalate Crystal (None) /hpf Hyaline Casts (0-2) /lpf Urine Mucus (None) /hpf Diabetes panel 12/21/17 Range/Units 21:35 Sodium 144 (137-145) mmol/L Potassium 3.9 (3.5-5.1) mmol/L Chloride 107 (98-107) mmol/L Carbon Dioxide 25 (22-30) mmol/L BUN 10 (9-20) mg/dL Creatinine 0.90 (0.66-1.25) mg/dL Glucose 135 H (74-99) mg/dL Calcium 8.8 (8.4-10.2) mg/dL AST 113 H (17-59) U/L ALT 58 (21-72) U/L Alkaline Phosphatase 136 H (38-126) U/L Total Protein 7.5 (6.3-8.2) g/dL Albumin 3.7 (3.5-5.0) g/dL Calcium panel 12/21/17 Range/Units 21:35 Calcium 8.8 (8.4-10.2) mg/dL Albumin 3.7 (3.5-5.0) g/dL Pituitary panel 12/21/17 Range/Units 21:35 Sodium 144 (137-145) mmol/L Potassium 3.9 (3.5-5.1) mmol/L Chloride 107 (98-107) mmol/L Carbon Dioxide 25 (22-30) mmol/L BUN 10 (9-20) mg/dL Creatinine 0.90 (0.66-1.25) mg/dL Glucose 135 H (74-99) mg/dL Calcium 8.8 (8.4-10.2) mg/dL Adrenal panel 12/21/17 Range/Units 21:35 Sodium 144 (137-145) mmol/L Potassium 3.9 (3.5-5.1) mmol/L Chloride 107 (98-107) mmol/L Carbon Dioxide 25 (22-30) mmol/L BUN 10 (9-20) mg/dL Creatinine 0.90 (0.66-1.25) mg/dL Glucose 135 H (74-99) mg/dL Calcium 8.8 (8.4-10.2) mg/dL Total Bilirubin 0.3 (0.2-1.3) mg/dL AST 113 H (17-59) U/L ALT 58 (21-72) U/L Alkaline Phosphatase 136 H (38-126) U/L Total Protein 7.5 (6.3-8.2) g/dL Albumin 3.7 (3.5-5.0) g/dL Assessment and Plan Assessment: Impression Present on admission bilateral flank pain unclear etiology Chronic alcohol dependency CAT scan abdomen and pelvis with IV contrast show no evidence of renal stone or obstruction CAT scan abdomen and pelvis show mild inflammatory change in the retroperitoneal above the pancreatic head has increased compared to prior exam could relate to some vasculitis from the portal vein History of esophageal varices requiring EGD with ligation done on 10/21/2017 History of paroxysmal atrial fibrillation on no anticoagulation due to GI bleed Plan IV fluid for hydration Dr. egan will review the computed tomography scan of the abdomen pelvis with further recommendations pending Repeat labs in the morning Keep nothing by mouth until seen by Dr. egan We'll follow with you Surgical consultation note dictated for Dr egan The above impression and plan of care have been discussed and directed by signing physician. Lily Moreno nurse practitioner acting as scribe for signing physician..
[2017-12-22] MEDS: metFORMIN 500 MG TAB PO SCH ×2 (11:47→20:50)
[2017-12-22] MEDS ORDERED: LORazepam 2 MG/ML INJ IV PRN ×3 (12:00)
--- NOTE | 2017-12-22 12:08 | P.HPIM ---
History of Present Illness H&P Date: 12/22/17 Chief Complaint: abdominal pain This is a 62-year-old male patient of Dr. Phillips. Patient presented to the emergency room complaints of abdominal pain and nausea. Patient has a known past medical history of atrial fibrillation and not on anticoagulation due to previous GI bleed diabetes, hyperlipidemia, EtOH, hypertension, PE, esophageal varices with bleeding requiring EGD and ligation in October [address] of abdomen and pelvis completed showing no evidence of renal stone or obstruction. There is evidence of some nonspecific mild limits for change in the retroperitoneum upper abdomen above the pancreatic head that increased compared to last exam. 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 Dr. Londono per surgical services have been consulted. Patient also complaining of burning with urination. Urinary analysis was negative. Culture has been ordered. Patient's blood pressure remains elevated. Norvasc has been added along with home medication. Patient denies chest pain or shortness of breath at this time. Review of Systems please refer to HPI otherwise unremarkable Past Medical History Past Medical History: Atrial Fibrillation, Chest Pain / Angina, COPD, CVA/TIA, Diabetes Mellitus, GERD/Reflux, GI Bleed, Hyperlipidemia, Hypertension, Pneumonia, Pulmonary Embolus (PE) Additional Past Medical History / Comment(s): Alcoholism, chronic alcoholic cirrhosis with portal hypertension and previous history of GI bleeding, esophageal varices, diabetes mellitus, hypertension, hyperlipidemia, previous history of childhood seizure which he outgrew not taking any antiepileptic medication, history of atrial fibrillation, history of pulmonary embolism, hypertension, hyperlipidemia, previous history of GI bleed, previous history of CVA without any residual deficits. He also has history of diverticulosis, chronic lower extremity ankle edema, previous history of septicemia, cervical disc disease with chronic back pain, degenerative arthritis involving the lower back, tinnitus History of Any Multi-Drug Resistant Organisms: None Reported Past Surgical History: Appendectomy, Cholecystectomy Additional Past Surgical History / Comment(s): 07/20/17 EGD, 03/21/17 EGD/ colonoscopy, other colonoscopies. Past Anesthesia/Blood Transfusion Reactions: Previous Problems w/ Anesthesia Additional Past Anesthesia/Blood Transfusion Reaction / Comment(s): after appendix removed sob Smoking Status: Never smoker - Past Family History Mother Family Medical History: COPD, CVA/TIA, Dementia Additional Family Medical History / Comment(s): from a stroke Father Family Medical History: Pneumonia Additional Family Medical History / Comment(s): Father of pneumonia when he was close to 80 yrs old. Medications and Allergies Home Medications Medication Instructions Recorded Confirmed Type Docusate [Colace] 100 mg PO DAILY PRN #20 capsule 08/27/17 12/22/17 Rx Ferrous Sulfate [Feosol] 325 mg PO DAILY #30 tab 08/27/17 12/22/17 Rx metFORMIN HCL 1,000 mg PO BID 09/23/17 12/22/17 History Magnesium Oxide 400 mg PO DAILY #30 tablet 09/24/17 12/22/17 Rx Pantoprazole [Protonix] 40 mg PO AC-BID #60 tablet.dr 10/25/17 12/22/17 Rx Folic Acid 1 mg PO DAILY 11/09/17 12/22/17 History Multivitamins, Thera [Multivitamin 1 tab PO DAILY 11/09/17 12/22/17 History (formulary)] Thiamine [Vitamin B-1] 100 mg PO DAILY 11/09/17 12/22/17 History Nadolol [Corgard] 20 mg PO DAILY #30 tab 11/11/17 12/22/17 Rx Cholecalciferol [Vitamin D3] 2,000 unit PO DAILY@1200 #30 tab 11/26/17 12/22/17 Rx Albuterol Nebulized [Ventolin 2.5 mg INHALATION RT-Q6H PRN 12/06/17 12/22/17 History Nebulized] Nadolol [Corgard] 20 mg PO DAILY 12/22/17 12/22/17 History Ondansetron HCl 8 mg PO DAILY 12/22/17 12/22/17 History Allergies Allergy/AdvReac Type Severity Reaction Status Date / Time adhesive tape Allergy Rash/Hives Verified 12/22/17 05:14 egg AdvReac Nausea & Verified 12/22/17 05:14 Vomiting lisinopril AdvReac EYES Verified 12/22/17 05:14 BURN&ITCH/WEAKNESS tomato AdvReac Nausea & Verified 12/22/17 05:14 Vomiting & Diarrhea Physical Exam Vitals: Vital Signs Temp Pulse Pulse Resp BP BP Pulse Ox 12/22/17 08:45 166/91 12/22/17 08:00 18 12/22/17 07:18 92 12/22/17 07:07 92 12/22/17 06:13 18 12/22/17 06:03 97.9 F 93 18 189/99 95 12/22/17 04:54 95 16 171/96 95 12/22/17 01:15 98 16 170/83 94 L 12/21/17 21:30 98.4 F 107 H 20 134/82 92 L Intake and Output 12/21/17 12/22/17 12/22/17 22:59 06:59 14:59 Other: # Voids 1 Weight 74.389 kg 74.3 kg Head normocephalic Neck supple Lungs clear to auscultation bilaterally no wheezing or crackles Heart regular rate and rhythm S1-S2, no rub or gallop Abdomen is soft nontender nondistended positive bowel sounds no hepatosplenomegaly Extremities no edema Neuro alert and orientated to 3 Results CBC & Chem 7: 12/21/17 21:35 12/21/17 21:35 Labs: Abnormal Lab Results - Last 24 Hours (Table) 12/21/17 12/21/17 12/21/17 Range/Units 21:35 21:35 21:35 RBC 3.90 L (4.30-5.90) m/uL Hgb 10.8 L (13.0-17.5) gm/dL Hct 34.3 L (39.0-53.0) % RDW 18.5 H (11.5-15.5) % Plt Count 141 L (150-450) k/uL Glucose 135 H (74-99) mg/dL POC Glucose (mg/dL) (75-99) mg/dL AST 113 H (17-59) U/L Alkaline Phosphatase 136 H (38-126) U/L Urine Protein 1+ H (Negative) Calcium Oxalate Crystal Occasional H (None) /hpf Hyaline Casts 6 H (0-2) /lpf Urine Mucus Rare H (None) /hpf 12/22/17 Range/Units 07:35 RBC (4.30-5.90) m/uL Hgb (13.0-17.5) gm/dL Hct (39.0-53.0) % RDW (11.5-15.5) % Plt Count (150-450) k/uL Glucose (74-99) mg/dL POC Glucose (mg/dL) 165 H (75-99) mg/dL AST (17-59) U/L Alkaline Phosphatase (38-126) U/L Urine Protein (Negative) Calcium Oxalate Crystal (None) /hpf Hyaline Casts (0-2) /lpf Urine Mucus (None) /hpf Thrombosis Risk Factor Assmnt - Choose All That Apply Each Risk Factor Represents 2 Points: Age 61-74 years Thrombosis Risk Factor Assessment Total Risk Factor Score: 2 Thrombosis Risk Factor Assessment Level: Low Risk Assessment and Plan Assessment: 1. Abdominal pain. Computed tomography scan completed showing no evidence of renal stone or obstruction. There is evidence of some nonspecific mild inflammatory changes in the retro-peritoneum p.m. upper abdomen above the pancreatic head that is increased compared to last exam. This is around the portal vein and could relate to some vasculitis. Dr. Londono per surgical services has been consulted. Patient currently nothing by mouth 2. History of alcohol dependence. Patient reports last drink was on Wednesday. Alcohol withdrawal protocol has been ordered 3. History of paroxysmal atrial fibrillation: Not on anticoagulation due to history of esophageal varices. 4. Diabetes mellitus type 2 5. Esophagus history of esophageal varices per EGD and Ligation on 10/21/2017 6. History of pulmonary embolism 7. iron deficiency anemia. Continue iron supplement 8. History of TIA 9. Essential hypertension 10. History of COPD. No exacerbation at this time 11. Chronic liver cirrhosis with secondary portal hypertension. AST 113 and alkaline phosphate 136 12. Vitamin D deficiency. Continue Vitamin D 13. History of thrombocytopenia secondary to patient's liver disease current platelet level 141 DVT prophylaxis SCDs, GI prophylaxis Protonix Time with Patient: Greater than 30 (Greater than 60% of the total time spent in counseling and coordination of care. I performed an examination of the patient and discussed their management with the Nurse Practitioner. I have reviewed the Nurse Practitioner's notes and agree with the documented findings and plan of care)
[2017-12-22 12:41] LABS: Glucose,Whole Blood 141 mg/dL (75-99)
[2017-12-22 17:44] LABS: Glucose,Whole Blood 102 mg/dL (75-99)
--- NOTE | 2017-12-22 17:54 | P.PN ---
Progress Note - Text Progress Note Date: 12/22/17 The patient states his pain is improved. He is hungry. On exam is lesser stable. His abdomen soft. There is some minimal tenderness in the right and left lower quadrants. There is no rebound or guarding. Patient will be placed on a full liquid diet.
[2017-12-22 18:50] LABS: Hemoglobin A1C 5.7 % (4.0-6.0)
[2017-12-22 20:35] LABS: Glucose,Whole Blood 111 mg/dL (75-99)
[2017-12-23] MEDS: ONDANSETRON 4 MG/2 ML VIAL IVP PRN ×3 (00:36→19:44)
[2017-12-23] MEDS: MORPHINE SULFATE 4 MG/ML SYRINGE IV PRN (06:25)
[2017-12-23] MEDS: SODIUM CHLORIDE 0.9% 1,000 ML IV SCH ×2 (06:25→17:28)
[2017-12-23] MEDS ORDERED: LOPERAMIDE 2 MG CAP PO PRN (06:36)
[2017-12-23 06:48] LABS: Anisocytosis Slight; Basophils % (A) 0 %; Eosinophils # (A) 0.2 k/uL (0-0.7); Eosinophils % (A) 4 %; HCT 38.1 % (39.0-53.0); Hypochromasia Moderate; Lymphocytes # (A) 1.4 k/uL (1.0-4.8); Lymphocytes % (A) 34 %; MCH 27.7 pg (25.0-35.0); MCHC 31.6 g/dL (31.0-37.0); MCV 87.7 fL (80.0-100.0); Mean Platelet Volume 8.1; Monocytes # (A) 0.3 k/uL (0-1.0); Monocytes % (A) 6 %; Neutrophils # (A) 2.1 k/uL (1.3-7.7); Neutrophils % (A) 54 %; Platelet Count 149 k/uL (150-450); RBC 4.34 m/uL (4.30-5.90)
[2017-12-23 06:50] LABS: Glucose,Whole Blood 117 mg/dL (75-99)
[2017-12-23 07:01] LABS: ALT 50 U/L (21-72); AST 83 U/L (17-59); Albumin 3.8 g/dL (3.5-5.0); Alkaline Phosphatase 138 U/L (38-126); Anion Gap 10 mmol/L; Blood Urea Nitrogen 10 mg/dL (9-20); Calcium 8.8 mg/dL (8.4-10.2); Carbon Dioxide 28 mmol/L (22-30); Chloride 99 mmol/L (98-107); Glucose 113 mg/dL (74-99); Lipase 95 U/L (23-300); Potassium 3.9 mmol/L (3.5-5.1); Sodium 137 mmol/L (137-145); Total Protein 7.6 g/dL (6.3-8.2)
[2017-12-23] MEDS: ALBUTEROL NEBULIZED 2.5 MG/3 ML INHALATION PRN ×4 (07:02→20:00)
[2017-12-23] MEDS: metFORMIN 500 MG TAB PO SCH ×2 (08:44→19:44)
[2017-12-23] MEDS: MAGNESIUM OXIDE 400 MG TAB PO SCH (08:44)
[2017-12-23] MEDS: amLODIPine 5 MG TAB PO SCH ×2 (08:44→19:44)
[2017-12-23] MEDS: NADOLOL 20 MG TAB PO SCH (08:44)
[2017-12-23] MEDS: FERROUS SULFATE 325 MG TAB PO SCH (08:44)
[2017-12-23] MEDS: THIAMINE 100 MG TAB PO SCH (08:44)
[2017-12-23] MEDS: FOLIC ACID 1 MG TAB PO SCH (08:44)
[2017-12-23] MEDS: PANTOPRAZOLE 40 MG TABLET PO SCH ×2 (08:44→17:28)
--- NOTE | 2017-12-23 09:56 | P.PN ---
Subjective Progress Note Date: 12/23/17 E 62-year-old male sitting up in bed patient states that he did eat a small amount of oatmeal and pudding felt a sensation of nausea did not vomit states the abdominal pain significantly improved almost gone. Patient points to the lower abdomen as to the reference point. Patient appears in no acute distress. Objective - Vital Signs Vital signs: Vital Signs Temp 97.9 F 12/23/17 07:54 Pulse 65 12/23/17 07:54 Resp 16 12/23/17 07:54 BP 109/65 12/23/17 07:54 Pulse Ox 95 12/23/17 07:54 Intake & Output 12/22/17 12/23/17 12/23/17 18:59 06:59 18:59 Intake Total 840 Output Total 0 Balance 840 0 Intake: Intake, IV Titration 600 Amount Sodium Chloride 0.9% 1, 600 000 ml @ 75 mls/hr IV . [id number] Rx#:[id number] Oral 240 Output: Stool 0 Other: # Voids 2 1 - Exam Physical exam 62-year-old sitting up in bed appears in no acute distress Lungs adequate air movement bilaterally on room air Heart S1-S2 audible regular Abdomen soft nondistended nontender active bowel tones states had 3 loose stools this morning states a nausea sensation no active emesis Extremities no edema - Labs CBC & Chem 7: 12/23/17 06:27 12/23/17 06:27 Labs: Abnormal Lab Results - Last 24 Hours (Table) 12/22/17 12/22/17 12/22/17 Range/Units 12:39 17:41 20:29 Hgb (13.0-17.5) gm/dL Hct (39.0-53.0) % RDW (11.5-15.5) % Plt Count (150-450) k/uL Glucose (74-99) mg/dL POC Glucose (mg/dL) 141 H 102 H 111 H (75-99) mg/dL AST (17-59) U/L Alkaline Phosphatase (38-126) U/L 12/23/17 12/23/17 12/23/17 Range/Units 06:27 06:27 06:47 Hgb 12.0 L (13.0-17.5) gm/dL Hct 38.1 L (39.0-53.0) % RDW 18.0 H (11.5-15.5) % Plt Count 149 L (150-450) k/uL Glucose 113 H (74-99) mg/dL POC Glucose (mg/dL) 117 H (75-99) mg/dL AST 83 H (17-59) U/L Alkaline Phosphatase 138 H (38-126) U/L Assessment and Plan Assessment: Impression Present on admission bilateral flank pain unclear etiology Chronic alcohol dependency CAT scan abdomen and pelvis with IV contrast show no evidence of renal stone or obstruction CAT scan abdomen and pelvis show mild inflammatory change in the retroperitoneal above the pancreatic head has increased compared to prior exam could relate to some vasculitis from the portal vein History of esophageal varices requiring EGD with ligation done on 10/21/2017 History of paroxysmal atrial fibrillation on no anticoagulation due to GI bleed Plan Schedule patient for an EGD tomorrow morning as part of the workup Diet as tolerated IV fluid for hydration No evidence of an acute surgical abdomen We'll follow with you The above impression and plan of care have been discussed and directed by signing physician. Lily Moreno nurse practitioner acting as scribe for signing physician..
--- NOTE | 2017-12-23 11:03 | P.PN ---
Subjective Progress Note Date: 12/23/17 This is a 62-year-old male patient of Dr. Phillips. Patient presented to the emergency room complaints of abdominal pain and nausea. Patient has a known past medical history of atrial fibrillation and not on anticoagulation due to previous GI bleed diabetes, hyperlipidemia, EtOH, hypertension, PE, esophageal varices with bleeding requiring EGD and ligation in October [address] of abdomen and pelvis completed showing no evidence of renal stone or obstruction. There is evidence of some nonspecific mild limits for change in the retroperitoneum upper abdomen above the pancreatic head that increased compared to last exam. 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 Dr. Londono per surgical services have been consulted. Patient also complaining of burning with urination. Urinary analysis was negative. Culture has been ordered. Patient's blood pressure remains elevated. Norvasc has been added along with home medication. Patient denies chest pain or shortness of breath at this time. On 12/23/2017 patient is currently sitting up in chair. States that his abdominal pain and nausea is slightly improved from yesterday did have an episode of nausea after eating pudding this morning. Per surgical services Dr. Mohan patient is scheduled for EGD in the morning. She will be nothing by mouth after midnight. Denies chest pain or shortness of breath. Denies any urinary symptoms at this time Objective - Vital Signs Vital signs: Vital Signs Temp 97.9 F 12/23/17 07:54 Pulse 65 12/23/17 07:54 Resp 16 12/23/17 07:54 BP 109/65 12/23/17 07:54 Pulse Ox 95 12/23/17 07:54 Intake & Output 12/22/17 12/23/17 12/23/17 18:59 06:59 18:59 Intake Total 840 Output Total 0 0 Balance 840 0 0 Intake: Intake, IV Titration 600 Amount Sodium Chloride 0.9% 1, 600 000 ml @ 75 mls/hr IV . [id number] [id number] Rx#:[id number] Oral 240 Output: Stool 0 0 Other: # Voids 2 1 - Exam Head normocephalic Neck supple Lungs clear to auscultation bilaterally no wheezing or crackles Heart regular rate and rhythm S1-S2, no rub or gallop Abdomen is soft nontender nondistended positive bowel sounds no hepatosplenomegaly Extremities no edema Neuro alert and orientated to 3 - Labs CBC & Chem 7: 12/23/17 06:27 12/23/17 06:27 Labs: Abnormal Lab Results - Last 24 Hours (Table) 12/22/17 12/22/17 12/22/17 Range/Units 12:39 17:41 20:29 Hgb (13.0-17.5) gm/dL Hct (39.0-53.0) % RDW (11.5-15.5) % Plt Count (150-450) k/uL Glucose (74-99) mg/dL POC Glucose (mg/dL) 141 H 102 H 111 H (75-99) mg/dL AST (17-59) U/L Alkaline Phosphatase (38-126) U/L 12/23/17 12/23/17 12/23/17 Range/Units 06:27 06:27 06:47 Hgb 12.0 L (13.0-17.5) gm/dL Hct 38.1 L (39.0-53.0) % RDW 18.0 H (11.5-15.5) % Plt Count 149 L (150-450) k/uL Glucose 113 H (74-99) mg/dL POC Glucose (mg/dL) 117 H (75-99) mg/dL AST 83 H (17-59) U/L Alkaline Phosphatase 138 H (38-126) U/L Assessment and Plan Assessment: 1. Abdominal pain. Computed tomography scan completed showing no evidence of renal stone or obstruction. There is evidence of some nonspecific mild inflammatory changes in the retro-peritoneum p.m. upper abdomen above the pancreatic head that is increased compared to last exam. This is around the portal vein and could relate to some vasculitis. Dr. Londono per surgical services has been consulted. Patient currently nothing by mouth. Patient currently tolerating clear liquid diet. Plan for EGD per surgical services tomorrow will be nothing by mouth after midnight. 2. History of alcohol dependence. Patient reports last drink was on Wednesday. Alcohol withdrawal protocol has been ordered. Continue thiamine 3. History of paroxysmal atrial fibrillation: Not on anticoagulation due to history of esophageal varices. 4. Diabetes mellitus type 2 5. Esophagus history of esophageal varices per EGD and Ligation on 10/21/2017 6. History of pulmonary embolism 7. iron deficiency anemia. Continue iron supplement 8. History of TIA 9. Essential hypertension 10. History of COPD. No exacerbation at this time 11. Chronic liver cirrhosis with secondary portal hypertension. AST 83 and alkaline phosphate 138. [place] and Tylenol discontinued 12. Vitamin D deficiency. Continue Vitamin D 13. History of thrombocytopenia secondary to patient's liver disease current platelet level 149 DVT prophylaxis SCDs, GI prophylaxis Protonix I performed an examination of the patient and discussed their management with the Nurse Practitioner. I have reviewed the Nurse Practitioner's notes and agree with the documented findings and plan of care
[2017-12-23 12:31] LABS: Glucose,Whole Blood 101 mg/dL (75-99)
[2017-12-23 17:40] LABS: Glucose,Whole Blood 98 mg/dL (75-99)
[2017-12-23] MEDS: LACTATED RINGERS 1,000 ML IV SCH (19:34)
[2017-12-23 20:06] LABS: Glucose,Whole Blood 117 mg/dL (75-99)
[2017-12-24 00:59] VITALS: RESP 16
[2017-12-24 06:15] VITALS: BP 115/70; PULSE 73; TEMP 97.8
[2017-12-24] MEDS: amLODIPine 5 MG TAB PO SCH (08:13)
[2017-12-24] MEDS: NADOLOL 20 MG TAB PO SCH (08:13)
[2017-12-24 08:18] LABS: ALT 45 U/L (21-72); AST 72 U/L (17-59); Albumin 3.3 g/dL (3.5-5.0); Alkaline Phosphatase 109 U/L (38-126); Anion Gap 8 mmol/L; Blood Urea Nitrogen 10 mg/dL (9-20); Calcium 9.1 mg/dL (8.4-10.2); Carbon Dioxide 25 mmol/L (22-30); Chloride 104 mmol/L (98-107); Glucose 86 mg/dL (74-99); Potassium 4.1 mmol/L (3.5-5.1); Sodium 137 mmol/L (137-145); Total Bilirubin 0.9 mg/dL (0.2-1.3); Total Protein 6.7 g/dL (6.3-8.2)
[2017-12-24] MEDS: SODIUM CHLORIDE 0.9% 1,000 ML IV SCH (08:18)
[2017-12-24 08:36] LABS: Glucose,Whole Blood 87 mg/dL (75-99)
[2017-12-24 08:38] LABS: Anisocytosis Slight; Basophils % (A) 0 %; Eosinophils # (A) 0.1 k/uL (0-0.7); Eosinophils % (A) 4 %; HCT 33.4 % (39.0-53.0); HGB 10.3 gm/dL (13.0-17.5); Hypochromasia Moderate; Lymphocytes # (A) 1.5 k/uL (1.0-4.8); Lymphocytes % (A) 45 %; MCH 27.1 pg (25.0-35.0); MCHC 30.8 g/dL (31.0-37.0); MCV 88.2 fL (80.0-100.0); Mean Platelet Volume 7.8; Monocytes # (A) 0.3 k/uL (0-1.0); Monocytes % (A) 9 %; Neutrophils # (A) 1.3 k/uL (1.3-7.7); Neutrophils % (A) 39 %; Platelet Count 120 k/uL (150-450); RBC 3.79 m/uL (4.30-5.90); RDW 18.2 % (11.5-15.5); WBC 3.4 k/uL (3.8-10.6)
[2017-12-24] MEDS ORDERED: MIDAZOLAM 2 MG/2 ML VIAL ONE (09:46)
[2017-12-24] MEDS ORDERED: PROPOFOL 10 MG/ML 20 ML VIAL IV ONE (09:46)
[2017-12-24] MEDS ORDERED: fentaNYL (PF) 50 MCG/ML 2 ML AMP ONE (09:46)
[2017-12-24] MEDS ORDERED: IV FLUID CONTINUATION 800 ML IV ONE (09:57)
--- NOTE | 2017-12-24 09:58 | P.OP ---
Date of Procedure: 12/24/17 Preoperative Diagnosis: Epigastric abdominal pain Postoperative Diagnosis: Gastritis No evidence of hiatal hernia Mild esophagitis Procedure(s) Performed: EGD Anesthesia: MAC Surgeon: Kleber Ramirez Pathology: other (Antrum, esophagus) Condition: stable Disposition: PACU Description of Procedure: The patient's placed on the endoscopy table in the lateral position. He received IV sedation. The gastroscope placed oropharynx passed in the esophagus and the stomach. Scope was then placed through the pylorus. The first and second portion scope was then brought back the antrum this was mildly inflamed. A biopsies performed. The scope was then retroflexed and the remainder of the stomach appeared normal. There is no evidence of hiatal hernia. There is some mild distal esophagitis. This area is biopsied. The proximal esophagus appeared normal. Scope was withdrawn for patient.
[2017-12-24] MEDS: metFORMIN 500 MG TAB PO SCH (10:38)
[2017-12-24] MEDS: FOLIC ACID 1 MG TAB PO SCH (10:38)
[2017-12-24] MEDS: MAGNESIUM OXIDE 400 MG TAB PO SCH (10:38)
[2017-12-24] MEDS: FERROUS SULFATE 325 MG TAB PO SCH (10:38)
[2017-12-24] MEDS: THIAMINE 100 MG TAB PO SCH (10:38)
[2017-12-24] MEDS: PANTOPRAZOLE 40 MG TABLET PO SCH ×2 (10:38→18:04)
[2017-12-24 11:14] LABS: Glucose,Whole Blood 100 mg/dL (75-99)
--- NOTE | 2017-12-24 16:29 | P.DS ---
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 Abdominal pain. Computed tomography scan completed showing no evidence of renal stone or obstruction. There is evidence of some nonspecific mild inflammatory changes in the retro-peritoneum p.m. upper abdomen above the pancreatic head that is increased compared to last exam. This is around the portal vein and could relate to some vasculitis. Dr. Londono per surgical services has been consulted. Patient currently nothing by mouth. Patient currently tolerating clear liquid diet. Plan for EGD per surgical services tomorrow will be nothing by mouth after midnight. EGD completed per Dr. Ramirez. Showing gastritis, no evidence of hiatal hernia and mild esophagitis. Patient symptoms have resolved. Has been cleared for discharge from surgical services. 2. History of alcohol dependence. Patient reports last drink was on Wednesday. Alcohol withdrawal protocol has been ordered. Continue thiamine. Patient educated on the importance of stopping alcohol consumption 3. History of paroxysmal atrial fibrillation: Not on anticoagulation due to history of esophageal varices. 4. Diabetes mellitus type 2 5. Esophagus history of esophageal varices per EGD and Ligation on 10/21/2017 6. History of pulmonary embolism 7. iron deficiency anemia. Continue iron supplement 8. History of TIA 9. Essential hypertension 10. History of COPD. No exacerbation at this time 11. Chronic liver cirrhosis with secondary portal hypertension. AST 83 and alkaline phosphate 138. [place] and Tylenol discontinued. AST 72 12. Vitamin D deficiency. Continue Vitamin D 13. History of thrombocytopenia secondary to patient's liver disease current platelet level 120 Hospital course This is a 62-year-old male patient of Dr. Phillips. Patient presented to the emergency room complaints of abdominal pain and nausea. Patient has a known past medical history of atrial fibrillation and not on anticoagulation due to previous GI bleed diabetes, hyperlipidemia, EtOH, hypertension, PE, esophageal varices with bleeding requiring EGD and ligation in October [address] of abdomen and pelvis completed showing no evidence of renal stone or obstruction. There is evidence of some nonspecific mild limits for change in the retroperitoneum upper abdomen above the pancreatic head that increased compared to last exam. 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 Dr. Londono per surgical services have been consulted. Patient also complaining of burning with urination. Urinary analysis was negative. Culture has been ordered. Patient's blood pressure remains elevated. Norvasc has been added along with home medication. Patient denies chest pain or shortness of breath at this time. On 12/23/2017 patient is currently sitting up in chair. States that his abdominal pain and nausea is slightly improved from yesterday did have an episode of nausea after eating pudding this morning. Per surgical services Dr. Mohan patient is scheduled for EGD in the morning. She will be nothing by mouth after midnight. Denies chest pain or shortness of breath. Denies any urinary symptoms at this time On 12/24/2017 patient EGD this a.m. showing gastritis, mild esophagitis no hiatal hernia. Patient cleared for discharge. Patient's symptoms have resolved. Patient to follow-up with primary care provider I performed an examination of the patient and discussed their management with the Nurse Practitioner. I have reviewed the Nurse Practitioner's notes and agree with the documented findings and plan of care Patient Condition at Discharge: Good Plan - Discharge Summary New Discharge Prescriptions: New amLODIPine [Norvasc] 5 mg PO BID #60 tab Continue Docusate [Colace] 100 mg PO DAILY PRN #20 capsule PRN Reason: Constipation Ferrous Sulfate [Feosol] 325 mg PO DAILY #30 tab metFORMIN HCL 1,000 mg PO BID Magnesium Oxide 400 mg PO DAILY #30 tablet Pantoprazole [Protonix] 40 mg PO AC-BID #60 tablet. Folic Acid 1 mg PO DAILY Multivitamins, Thera [Multivitamin (formulary)] 1 tab PO DAILY Thiamine [Vitamin B-1] 100 mg PO DAILY Nadolol [Corgard] 20 mg PO DAILY #30 tab Cholecalciferol [Vitamin D3] 2,000 unit PO DAILY@1200 #30 tab Albuterol Nebulized [Ventolin Nebulized] 2.5 mg INHALATION RT-Q6H PRN PRN Reason: Shortness Of Breath Ondansetron HCl 8 mg PO DAILY Nadolol [Corgard] 20 mg PO DAILY Discharge Medication List Docusate [Colace] 100 mg PO DAILY PRN #20 capsule 08/27/17 [Rx] Ferrous Sulfate [Feosol] 325 mg PO DAILY #30 tab 08/27/17 [Rx] metFORMIN HCL 1,000 mg PO BID 09/23/17 [History] Magnesium Oxide 400 mg PO DAILY #30 tablet 09/24/17 [Rx] Pantoprazole [Protonix] 40 mg PO AC-BID #60 tablet.dr 10/25/17 [Rx] Folic Acid 1 mg PO DAILY 11/09/17 [History] Multivitamins, Thera [Multivitamin (formulary)] 1 tab PO DAILY 11/09/17 [History ] Thiamine [Vitamin B-1] 100 mg PO DAILY 11/09/17 [History] Nadolol [Corgard] 20 mg PO DAILY #30 tab 11/11/17 [Rx] Cholecalciferol [Vitamin D3] 2,000 unit PO DAILY@1200 #30 tab 11/26/17 [Rx] Albuterol Nebulized [Ventolin Nebulized] 2.5 mg INHALATION RT-Q6H PRN 12/06/17 [ History] Nadolol [Corgard] 20 mg PO DAILY 12/22/17 [History] Ondansetron HCl 8 mg PO DAILY 12/22/17 [History] amLODIPine [Norvasc] 5 mg PO BID #60 tab 12/24/17 [Rx] Follow up Appointment(s)/Referral(s): Yoon Phillips DO [Primary Care Provider] - 12/30/17 1:00 pm Patient Instructions/Handouts: Amlodipine (By mouth), Abdominal Pain (ED) Activity/Diet/Wound Care/Special Instructions: Diet : Regular Activity: As tolerated Discharge Disposition: HOME SELF-CARE
[2017-12-24] MEDS: LACTATED RINGERS 1,000 ML IV SCH (18:04)
== END 2017-12-24 18:15 | disposition home or self-care (01) ==
LOC: EC 21:29 → 3OBS 12-22 04:05 → OBSVTOIN 12-23 15:58 → INTOOBSV 12-23 15:58 → 5MS5E 12-23 21:09 → UNDODISIN 12-24 18:15
PROVIDERS: ADMIT Internal Medicine; ATTEND Internal Medicine
PROC: 0DB28ZX Excision of Middle Esophagus, Via Natural or Artificial Opening Endoscopic, Diagnostic (ICD-10-PCS; 2017-12-24)
PROC: 0DB78ZX Excision of Stomach, Pylorus, Via Natural or Artificial Opening Endoscopic, Diagnostic (ICD-10-PCS; principal; 2017-12-24 15:20)
DX: K29.70 Gastritis, unspecified, without bleeding (principal); K76.6 Portal hypertension; D69.59 Other secondary thrombocytopenia; I48.0 Paroxysmal atrial fibrillation; D50.9 Iron deficiency anemia, unspecified; E11.9 Type 2 diabetes mellitus without complications; K70.30 Alcoholic cirrhosis of liver without ascites; E55.9 Vitamin D deficiency, unspecified; E78.5 Hyperlipidemia, unspecified; K21.0 Gastro-esophageal reflux disease with esophagitis; F10.20 Alcohol dependence, uncomplicated; I10 Essential (primary) hypertension; M50.30 Other cervical disc degeneration, unspecified cervical region; J44.9 Chronic obstructive pulmonary disease, unspecified; G89.29 Other chronic pain; M54.5 Low back pain; R30.0 Dysuria; Z79.84 Long term (current) use of oral hypoglycemic drugs; Z79.899 Other long term (current) drug therapy; Z86.711 Personal history of pulmonary embolism; Z86.73 Personal history of transient ischemic attack (TIA), and cerebral infarction without residual deficits; Z87.19 Personal history of other diseases of the digestive system; Z87.01 Personal history of pneumonia (recurrent); Z90.49 Acquired absence of other specified parts of digestive tract; Z91.012 Allergy to eggs; Z88.8 Allergy status to other drugs, medicaments and biological substances; Z91.018 Allergy to other foods; Z91.048 Other nonmedicinal substance allergy status; Z82.5 Family history of asthma and other chronic lower respiratory diseases; Z82.3 Family history of stroke; Z81.8 Family history of other mental and behavioral disorders; M47.814 Spondylosis without myelopathy or radiculopathy, thoracic region
CPT/HCPCS: 96374 ×2; 96361 ×4; 96376 ×2; 96375; 99285; 36415; 94640 ×4; 88305; 80053 ×3; 82150; 83690 ×2; 85025 ×3; 81001; 87086; 83036; 74177; 43239; G0378 ×4; J2250; J2270 ×2; J2405 ×2; J3010; J2704; Q9967

== ENCOUNTER 2018-01-06 11:21 | Emergency (ER) | payer OTHER ==
[2018-01-06] MEDS ORDERED: ORPHENADRINE 30 MG/ML 2 ML VIAL IVP STA (11:45)
--- NOTE | 2018-01-06 11:49 | ED ---
General Adult HPI - General Chief complaint: Back Pain/Injury Stated complaint: back pain Time Seen by Provider: 01/06/18 11:22 Source: patient, EMS, RN notes reviewed Mode of arrival: EMS Limitations: no limitations - History of Present Illness Initial comments: This is a 62-year-old male who presents to the emergency department complaining of back pain. Patient states she has lower back pain and has been ongoing for quite a while though he has not follow-up with his primary medical care doctor. Patient states he has had no numbness or weakness there is been no recent injury. Patient states she was given Toradol in the ambulance and that made his back pain considerably better. Patient states to the nurse that he had chest pain after Toradol but he denied any chest pain or discomfort to me and denies any difficulty breathing or shortness of breath. Patient denies any recent fever chills per patient denies any areas swelling redness or rash. Patient denies any dysuria hematuria urinary frequency. Patient denies any urinary incontinence or retention. Patient denies any other complaints at this time. - Related Data Home Medications Medication Instructions Recorded Confirmed metFORMIN HCL 1,000 mg PO BID 09/23/17 01/06/18 Thiamine [Vitamin B-1] 100 mg PO DAILY 11/09/17 01/06/18 LORazepam [Ativan] 0.5 mg PO TID PRN 01/06/18 01/06/18 Previous Rx's Medication Instructions Recorded Ferrous Sulfate [Feosol] 325 mg PO DAILY #30 tab 08/27/17 Magnesium Oxide 400 mg PO DAILY #30 tablet 09/24/17 Pantoprazole [Protonix] 40 mg PO AC-BID #60 tablet. 10/25/17 Nadolol [Corgard] 20 mg PO DAILY #30 tab 11/11/17 Allergies Allergy/AdvReac Type Severity Reaction Status Date / Time adhesive tape Allergy Rash/Hives Verified 01/06/18 12:38 egg AdvReac Nausea & Verified 01/06/18 12:38 Vomiting lisinopril AdvReac EYES Verified 01/06/18 12:38 BURN&ITCH/WEAKNESS tomato AdvReac Nausea & Verified 01/06/18 12:38 Vomiting & Diarrhea Review of Systems ROS Statement: Those systems with pertinent positive or pertinent negative responses have been documented in the HPI. ROS Other: All systems not noted in ROS Statement are negative. Past Medical History Past Medical History: Atrial Fibrillation, Chest Pain / Angina, COPD, CVA/TIA, Diabetes Mellitus, GERD/Reflux, GI Bleed, Hyperlipidemia, Hypertension, Pneumonia, Pulmonary Embolus (PE) Additional Past Medical History / Comment(s): Alcoholism, chronic alcoholic cirrhosis with portal hypertension and previous history of GI bleeding, esophageal varices, diabetes mellitus, hypertension, hyperlipidemia, previous history of childhood seizure which he outgrew not taking any antiepileptic medication, history of atrial fibrillation, history of pulmonary embolism, hypertension, hyperlipidemia, previous history of GI bleed, previous history of CVA without any residual deficits. He also has history of diverticulosis, chronic lower extremity ankle edema, previous history of septicemia, cervical disc disease with chronic back pain, degenerative arthritis involving the lower back, tinnitus History of Any Multi-Drug Resistant Organisms: None Reported Past Surgical History: Appendectomy, Cholecystectomy Additional Past Surgical History / Comment(s): 07/20/17 EGD, 03/21/17 EGD/ colonoscopy, other colonoscopies. Past Anesthesia/Blood Transfusion Reactions: Previous Problems w/ Anesthesia Additional Past Anesthesia/Blood Transfusion Reaction / Comment(s): after appendix removed sob Past Psychological History: Anxiety, Depression Smoking Status: Never smoker Past Alcohol Use History: Occasional Past Drug Use History: None Reported - Past Family History Mother Family Medical History: COPD, CVA/TIA, Dementia Additional Family Medical History / Comment(s): from a stroke Father Family Medical History: Pneumonia Additional Family Medical History / Comment(s): Father of pneumonia when he was close to 80 yrs old. General Exam - General Exam Comments Initial Comments: GENERAL: Patient is well-developed and well-nourished. Patient is nontoxic and well- hydrated and is in mild distress. ENT: Neck is soft and supple. No significant lymphadenopathy is noted. Oropharynx is clear. Moist mucous membranes. Neck has full range of motion without eliciting any pain. EYES: The sclera were anicteric and conjunctiva were pink and moist. Extraocular movements were intact and pupils were equal round and reactive to light. Eyelids were unremarkable. PULMONARY: Unlabored respirations. Good breath sounds bilaterally. No audible rales rhonchi or wheezing was noted. CARDIOVASCULAR: There is a regular rate and rhythm without any murmurs gallops or rubs. ABDOMEN: Soft and nontender with normal bowel sounds. SKIN: Skin is clear with no lesions or rashes and otherwise unremarkable. NEUROLOGIC: Patient is alert and oriented x3. Cranial nerves II through XII are grossly intact. Motor and sensory are also intact. Normal speech, volume and content. Symmetrical smile. MUSCULOSKELETAL: Normal extremities with adequate strength and full range of motion. No lower extremity swelling or edema. No calf tenderness. Straight leg test is negative bilaterally. Perineum has normal sensation LYMPHATICS: No significant lymphadenopathy is noted PSYCHIATRIC: Normal psychiatric evaluation. Limitations: no limitations Course Vital Signs 01/06/18 01/06/18 11:22 12:39 Temperature 98.7 F Pulse Rate 99 97 Respiratory 20 Rate Blood Pressure 152/95 166/98 O2 Sat by Pulse 96 98 Oximetry Medical Decision Making - Medical Decision Making EKG was done and shows sinus tachycardia at 104 bpm MA interval is on a 64 QRS is 74 QT interval 356 QTC is 468. Patient was able to ambulate around the room without problem. Patient did not take his blood pressure meds so I was giving him his blood pressure medication before his discharge. Patient states he feels considerably better. He will follow-up with his primary medical care doctor Disposition Clinical Impression: Strain of lumbar region, Degenerative disc disease Disposition: HOME SELF-CARE Instructions: Chronic Back Pain (ED) Is patient prescribed a controlled substance at d/c from ED?: No Referrals: Yoon Phillips DO [Primary Care Provider] - 1-2 days Time of Disposition: 12:48
--- NOTE | 2018-01-06 12:07 | XR ---
EXAM TYPE: LUMBAR SPINE X RAY SERIES COMPARISON: NONE HISTORY: Pain TECHNIQUE: 4 views are submitted. FINDINGS: Alignment is anatomic. The pedicles are intact. The transverse processes are intact. There is no s pondylolysis or spondylolisthesis. There is diffuse osteopenia with hypertrophic changes. Facet arthr opathy at levels L3-S1. Degenerative disc disease at all levels with moderate changes at L4-5 and L5- S1. Surgical clips in the right upper quadrant. IMPRESSION: 1. Diffuse osteopenia with multilevel degenerative disc disease.
[2018-01-06] MEDS ORDERED: NADOLOL 20 MG TAB PO STA (12:45)
[2018-01-06 13:16] VITALS: BP 155/86; PULSE 90; RESP 18; TEMP 98.2
== END 2018-01-06 13:21 | disposition home or self-care (01) ==
LOC: EC 11:21
DX: S39.012A Strain of muscle, fascia and tendon of lower back, initial encounter (principal); M51.36 Other intervertebral disc degeneration, lumbar region; R00.0 Tachycardia, unspecified; E11.9 Type 2 diabetes mellitus without complications; Z79.84 Long term (current) use of oral hypoglycemic drugs; Z91.012 Allergy to eggs; Z91.018 Allergy to other foods; Z88.8 Allergy status to other drugs, medicaments and biological substances; Z91.048 Other nonmedicinal substance allergy status
CPT/HCPCS: 93005; 72110; 99284; 96374; J2360

== ENCOUNTER 2018-01-06 15:08 | Emergency (ER) | payer OTHER ==
[2018-01-06] MEDS ORDERED: SODIUM CHLORIDE 0.9% 1,000 ML IV STA (18:15)
[2018-01-06] MEDS ORDERED: ONDANSETRON 4 MG/2 ML VIAL IVP STA (18:15)
--- NOTE | 2018-01-06 18:29 | ED ---
General Adult HPI - General Chief complaint: Nausea/Vomiting/Diarrhea Stated complaint: nausea Time Seen by Provider: 01/06/18 18:09 Source: patient, RN notes reviewed, old records reviewed Mode of arrival: ambulatory Limitations: no limitations - History of Present Illness Initial comments: Patient's a 62-year-old male presented to the emergency room today with chief complaint of nausea and dry heaving. Patient does not that he was seen here in the emergency room earlier today for chronic back pain. He says pain was exacerbated earlier today she came here to the emergency room. He states after being discharged went to the cafeteria. He states he ate a cookie there and became sick. He states he's had symptoms nausea and some dry heaving. He doesn 't symptoms be somewhat improved at this time. She still feeling slightly nauseated.Please use medication as discussed. Please follow-up with family doctor in the next 2 days of symptoms have not improved. Please return to emergency room if the symptoms increase or worsen or for any other concerns. Denies any other complaints. Patient denies any recent fever, chills, shortness of breath, chest pain, numbness or tingling, dysuria or hematuria, constipation or diarrhea, headaches or visual changes, or any other complaints. - Related Data Home Medications Medication Instructions Recorded Confirmed metFORMIN HCL 1,000 mg PO BID 09/23/17 01/06/18 Thiamine [Vitamin B-1] 100 mg PO DAILY 11/09/17 01/06/18 LORazepam [Ativan] 0.5 mg PO TID PRN 01/06/18 01/06/18 Previous Rx's Medication Instructions Recorded Ferrous Sulfate [Feosol] 325 mg PO DAILY #30 tab 08/27/17 Magnesium Oxide 400 mg PO DAILY #30 tablet 09/24/17 Pantoprazole [Protonix] 40 mg PO AC-BID #60 tablet. 10/25/17 Nadolol [Corgard] 20 mg PO DAILY #30 tab 11/11/17 Ondansetron Odt [Zofran ODT] 4 mg PO Q8HR PRN #20 tab 01/06/18 Orphenadrine [Norflex] 100 mg PO Q12H #20 tablet.er 01/06/18 Allergies Allergy/AdvReac Type Severity Reaction Status Date / Time adhesive tape Allergy Rash/Hives Verified 01/06/18 16:27 egg AdvReac Nausea & Verified 01/06/18 16:27 Vomiting lisinopril AdvReac EYES Verified 01/06/18 16:27 BURN&ITCH/WEAKNESS tomato AdvReac Nausea & Verified 01/06/18 16:27 Vomiting & Diarrhea Review of Systems ROS Statement: Those systems with pertinent positive or pertinent negative responses have been documented in the HPI. ROS Other: All systems not noted in ROS Statement are negative. Past Medical History Past Medical History: Atrial Fibrillation, Chest Pain / Angina, COPD, CVA/TIA, Diabetes Mellitus, GERD/Reflux, GI Bleed, Hyperlipidemia, Hypertension, Pneumonia, Pulmonary Embolus (PE) Additional Past Medical History / Comment(s): Alcoholism, chronic alcoholic cirrhosis with portal hypertension and previous history of GI bleeding, esophageal varices, diabetes mellitus, hypertension, hyperlipidemia, previous history of childhood seizure which he outgrew not taking any antiepileptic medication, history of atrial fibrillation, history of pulmonary embolism, hypertension, hyperlipidemia, previous history of GI bleed, previous history of CVA without any residual deficits. He also has history of diverticulosis, chronic lower extremity ankle edema, previous history of septicemia, cervical disc disease with chronic back pain, degenerative arthritis involving the lower back, tinnitus History of Any Multi-Drug Resistant Organisms: None Reported Past Surgical History: Appendectomy, Cholecystectomy Additional Past Surgical History / Comment(s): 07/20/17 EGD, 03/21/17 EGD/ colonoscopy, other colonoscopies. Past Anesthesia/Blood Transfusion Reactions: Previous Problems w/ Anesthesia Additional Past Anesthesia/Blood Transfusion Reaction / Comment(s): after appendix removed sob Past Psychological History: Anxiety, Depression Smoking Status: Never smoker Past Alcohol Use History: Occasional Past Drug Use History: None Reported - Past Family History Mother Family Medical History: COPD, CVA/TIA, Dementia Additional Family Medical History / Comment(s): from a stroke Father Family Medical History: Pneumonia Additional Family Medical History / Comment(s): Father of pneumonia when he was close to 80 yrs old. General Exam - General Exam Comments Initial Comments: General: The patient is awake and alert, in no distress, and does not appear acutely ill. Eye: Pupils are equal, round and reactive to light, extra-ocular movements are intact. No nystagmus. There is normal conjunctiva bilaterally. No signs of icterus. Ears, nose, mouth and throat: There are moist mucous membranes and no oral lesions. Neck: The neck is supple, there is no tenderness or JVD. Cardiovascular: There is a regular rate and rhythm. No murmur, rub or gallop is appreciated. Respiratory: Lungs are clear to auscultation, respirations are non-labored, breath sounds are equal. No wheezes, stridor, rales, or rhonchi. Gastrointestinal: Soft, non-distended, non-tender abdomen without masses or organomegaly noted. There is no rebound or guarding present. No CVA tenderness. Musculoskeletal: Normal ROM, no tenderness. Strength 5/5. Sensation intact. Pulses equal bilaterally 2+. Neurological: A&O x 3. CN II-XII intact, There are no obvious motor or sensory deficits. Coordination appears grossly intact. Speech is normal. Skin: Skin is warm and dry and no rashes or lesions are noted. Psychiatric: Cooperative, appropriate mood & affect, normal judgment. Limitations: no limitations Course Vital Signs 01/06/18 16:25 Temperature 98.2 F Pulse Rate 110 H Respiratory 18 Rate Blood Pressure 160/89 O2 Sat by Pulse 95 Oximetry Medical Decision Making - Medical Decision Making Patient reexamined at this time shows no signs of distress. States he is feeling better. Has had no vomiting or emergency room. Patient was seen earlier in the today for chronic low back pain. He states he was given something in the emergency room which was Norflex which did help. He'll be given a prescription of Norflex and also Zofran to go home with for his symptoms. Advised follow-up family doctor next 2 days return to emergency room if any symptoms increase worsen. Patient states understanding and is in agreement. - Lab Data Result diagrams: 01/06/18 18:17 01/06/18 18:17 Lab Results 01/06/18 01/06/18 01/06/18 Range/Units 18:17 18:17 18:22 WBC 4.8 (3.8-10.6) k/uL RBC 4.56 (4.30-5.90) m/uL Hgb 12.4 L (13.0-17.5) gm/dL Hct 40.9 (39.0-53.0) % MCV 89.8 (80.0-100.0) fL MCH 27.1 (25.0-35.0) pg MCHC 30.2 L (31.0-37.0) g/dL RDW 19.1 H (11.5-15.5) % Plt Count 170 (150-450) k/uL Neutrophils % 67 % Lymphocytes % 22 % Monocytes % 7 % Eosinophils % 1 % Basophils % 1 % Neutrophils # 3.2 (1.3-7.7) k/uL Lymphocytes # 1.1 (1.0-4.8) k/uL Monocytes # 0.3 (0-1.0) k/uL Eosinophils # 0.1 (0-0.7) k/uL Basophils # 0.0 (0-0.2) k/uL Hypochromasia Moderate Anisocytosis Slight Sodium 141 (137-145) mmol/L Potassium 4.6 (3.5-5.1) mmol/L Chloride 103 (98-107) mmol/L Carbon Dioxide 27 (22-30) mmol/L Anion Gap 11 mmol/L BUN 12 (9-20) mg/dL Creatinine 0.80 (0.66-1.25) mg/dL Est GFR (CKD-EPI)AfAm >90 (>60 ml/min/1.73 sqM) Est GFR (CKD-EPI)NonAf >90 (>60 ml/min/1.73 sqM) Glucose 143 H (74-99) mg/dL Calcium 9.5 (8.4-10.2) mg/dL Total Bilirubin 1.0 (0.2-1.3) mg/dL AST 99 H (17-59) U/L ALT 59 (21-72) U/L Alkaline Phosphatase 120 (38-126) U/L Total Protein 8.8 H (6.3-8.2) g/dL Albumin 4.5 (3.5-5.0) g/dL Amylase 90 (30-110) U/L Lipase 156 (23-300) U/L Urine Color Yellow Urine Appearance Clear (Clear) Urine pH 7.5 (5.0-8.0) Ur Specific [place] 1.016 (1.001-1.035) Urine Protein Trace H (Negative) Urine Glucose (UA) Trace H (Negative) Urine Ketones Negative (Negative) Urine Blood Negative (Negative) Urine Nitrite Negative (Negative) Urine Bilirubin Negative (Negative) Urine Urobilinogen <2.0 (<2.0) mg/dL Ur Leukocyte Esterase Negative (Negative) Disposition Clinical Impression: Nausea & vomiting, Chronic back pain Disposition: HOME SELF-CARE Condition: Good Instructions: Acute Nausea and Vomiting (ED) Additional Instructions: Please use medication as discussed. Please follow-up with family doctor in the next 2 days. Please return to emergency room if the symptoms increase or worsen or for any other concerns. Prescriptions: Ondansetron Odt [Zofran ODT] 4 mg PO Q8HR PRN #20 tab PRN Reason: Nausea Orphenadrine [Norflex] 100 mg PO Q12H #20 tablet.er Is patient prescribed a controlled substance at d/c from ED?: No Referrals: Yoon Phillips DO [Primary Care Provider] - 1-2 days Time of Disposition: 19:16
[2018-01-06 18:30] LABS: Anisocytosis Slight; Basophils % (A) 1 %; Eosinophils # (A) 0.1 k/uL (0-0.7); Eosinophils % (A) 1 %; HCT 40.9 % (39.0-53.0); HGB 12.4 gm/dL (13.0-17.5); Hypochromasia Moderate; Lymphocytes # (A) 1.1 k/uL (1.0-4.8); Lymphocytes % (A) 22 %; MCH 27.1 pg (25.0-35.0); MCHC 30.2 g/dL (31.0-37.0); MCV 89.8 fL (80.0-100.0); Mean Platelet Volume 7.5; Monocytes # (A) 0.3 k/uL (0-1.0); Monocytes % (A) 7 %; Neutrophils # (A) 3.2 k/uL (1.3-7.7); Neutrophils % (A) 67 %; Platelet Count 170 k/uL (150-450); RBC 4.56 m/uL (4.30-5.90); RDW 19.1 % (11.5-15.5); WBC 4.8 k/uL (3.8-10.6)
[2018-01-06 18:35] LABS: Appearance,Urine Clear (Clear); Bilirubin,Urine Negative (Negative); Blood,Urine Negative (Negative); Color,Urine Yellow; Glucose,Urine (UA) Trace (Negative); Ketones,Urine Negative (Negative); Leukocyte Esterase,Urine Negative (Negative); Nitrite,Urine Negative (Negative); PH, Urine 7.5 (5.0-8.0); Protein,Urine Trace (Negative); Specific Gravity,Urine 1.016 (1.001-1.035); Urobilinogen,Urine <2.0 mg/dL (<2.0)
[2018-01-06 18:37] LABS: ALT 59 U/L (21-72); AST 99 U/L (17-59); Albumin 4.5 g/dL (3.5-5.0); Alkaline Phosphatase 120 U/L (38-126); Amylase 90 U/L (30-110); Anion Gap 11 mmol/L; Blood Urea Nitrogen 12 mg/dL (9-20); Calcium 9.5 mg/dL (8.4-10.2); Carbon Dioxide 27 mmol/L (22-30); Chloride 103 mmol/L (98-107); Glucose 143 mg/dL (74-99); Lipase 156 U/L (23-300); Potassium 4.6 mmol/L (3.5-5.1); Sodium 141 mmol/L (137-145); Total Protein 8.8 g/dL (6.3-8.2)
[2018-01-06 19:51] VITALS: BP 165/80; PULSE 102; RESP 16; TEMP 98.3
== END 2018-01-06 19:51 | disposition home or self-care (01) ==
LOC: EC 15:08
DX: R11.2 Nausea with vomiting, unspecified (principal); M54.5 Low back pain; G89.29 Other chronic pain; I48.91 Unspecified atrial fibrillation; E11.9 Type 2 diabetes mellitus without complications; Z79.84 Long term (current) use of oral hypoglycemic drugs; Z79.899 Other long term (current) drug therapy; Z91.012 Allergy to eggs; Z91.018 Allergy to other foods; Z88.8 Allergy status to other drugs, medicaments and biological substances; Z91.048 Other nonmedicinal substance allergy status
CPT/HCPCS: 99284 ×2; 96374 ×2; 96361 ×2; 36415; 93005; 80053; 82150; 83690; 85025; 81003; 72110; J2360; J2405

== ENCOUNTER 2018-01-07 05:52 | Emergency (ER) | payer OTHER ==
[2018-01-07] MEDS ORDERED: ONDANSETRON 4 MG ODT STARTER PACK 2 TAB BTL PO STA (06:29)
--- NOTE | 2018-01-07 06:30 | ED ---
General Adult HPI - General Chief complaint: Back Pain/Injury Stated complaint: Abd and back pain Time Seen by Provider: 01/07/18 06:29 Source: patient Mode of arrival: ambulatory Limitations: no limitations - History of Present Illness Initial comments: Anders is a 62 yo male who returns to our emergency department this morning complaining that his back pain is worsening. Patient was seen and evaluated in our emergency department 2x yesterday. Initially for back pain, workup at that time revealed a normal xray and exam, patient was discharged home with muscle relaxor. Patient subsequently checked back in for evaluation of abdominal pain, patient was evaluated, labs were normal and patient was discharge home with kate CLEMENTE. Patient was unable to get a ride home, he remained in our emergency department waiting room throughout the evening. He tried sleeping upright in the waiting room chairs. Patient did not go to a pharmacy or get any of his medications filled. Patient states that this morning his back hurts and he hasn't had anything to eat since he was in the ER yesterday. He denies any new complaints. - Related Data Home Medications Medication Instructions Recorded Confirmed metFORMIN HCL 1,000 mg PO BID 09/23/17 01/07/18 Acetaminophen [Tylenol] 650 mg PO Q4H PRN 01/06/18 01/07/18 Cholecalciferol [Vitamin D3] 1,000 unit PO DAILY 01/06/18 01/07/18 Previous Rx's Medication Instructions Recorded Nadolol [Corgard] 20 mg PO DAILY #30 tab 11/11/17 Allergies Allergy/AdvReac Type Severity Reaction Status Date / Time adhesive tape Allergy Rash/Hives Verified 01/07/18 07:25 egg AdvReac Nausea & Verified 01/07/18 07:25 Vomiting lisinopril AdvReac EYES Verified 01/07/18 07:25 BURN&ITCH/WEAKNESS tomato AdvReac Nausea & Verified 01/07/18 07:25 Vomiting & Diarrhea Review of Systems ROS Statement: Those systems with pertinent positive or pertinent negative responses have been documented in the HPI. ROS Other: All systems not noted in ROS Statement are negative. Past Medical History Past Medical History: Atrial Fibrillation, Chest Pain / Angina, COPD, CVA/TIA, Diabetes Mellitus, GERD/Reflux, GI Bleed, Hyperlipidemia, Hypertension, Pneumonia, Pulmonary Embolus (PE) Additional Past Medical History / Comment(s): Alcoholism, chronic alcoholic cirrhosis with portal hypertension and previous history of GI bleeding, esophageal varices, diabetes mellitus, hypertension, hyperlipidemia, previous history of childhood seizure which he outgrew not taking any antiepileptic medication, history of atrial fibrillation, history of pulmonary embolism, hypertension, hyperlipidemia, previous history of GI bleed, previous history of CVA without any residual deficits. He also has history of diverticulosis, chronic lower extremity ankle edema, previous history of septicemia, cervical disc disease with chronic back pain, degenerative arthritis involving the lower back, tinnitus History of Any Multi-Drug Resistant Organisms: None Reported Past Surgical History: Appendectomy, Cholecystectomy Additional Past Surgical History / Comment(s): 07/20/17 EGD, 03/21/17 EGD/ colonoscopy, other colonoscopies. Past Anesthesia/Blood Transfusion Reactions: Previous Problems w/ Anesthesia Additional Past Anesthesia/Blood Transfusion Reaction / Comment(s): after appendix removed sob Past Psychological History: Anxiety, Depression Smoking Status: Never smoker Past Alcohol Use History: Occasional Past Drug Use History: None Reported - Past Family History Mother Family Medical History: COPD, CVA/TIA, Dementia Additional Family Medical History / Comment(s): from a stroke Father Family Medical History: Pneumonia Additional Family Medical History / Comment(s): Father of pneumonia when he was close to 80 yrs old. General Exam Limitations: no limitations General appearance: alert, in no apparent distress Head exam: Present: atraumatic, normocephalic Eye exam: Present: PERRL ENT exam: Present: normal exam Neck exam: Present: full ROM Respiratory exam: Absent: respiratory distress Cardiovascular Exam: Present: regular rate GI/Abdominal exam: Present: soft. Absent: distended, tenderness, guarding, rebound Rectal exam: Present: deferred Extremities exam: Present: full ROM Back exam: Absent: vertebral tenderness Neurological exam: Present: alert Psychiatric exam: Present: normal affect, normal mood Skin exam: Present: warm, dry Course Vital Signs 01/07/18 05:55 Temperature 98.2 F Pulse Rate 98 Respiratory 18 Rate Blood Pressure 102/93 O2 Sat by Pulse 98 Oximetry Medical Decision Making - Medical Decision Making The patient was seen and evaluated, history was obtained from the patient and review of medical record Patient denies any new symptoms, states that sitting in the ER waiting room all night made his back hurt worse. Patient was given zofran for persistent nausea and lidoderm for back pain Patient was given breakfast which he ate eagerly At this time patient is stable for discharge home, he can get a ride at 8am. All questions pertaining to care were answered to the best of my ability, patient was advised to get the prescriptions he was prescribed yesterday filled and follow up with his PCP. Disposition Clinical Impression: Mechanical back pain Disposition: HOME SELF-CARE Condition: Good Instructions: Acute Low Back Pain (ED), Chronic Back Pain (ED) Is patient prescribed a controlled substance at d/c from ED?: No Referrals: Yoon Phillips DO [Primary Care Provider] - 1-2 days Time of Disposition: 07:41
[2018-01-07 06:47] VITALS: BP 102/93; PULSE 98; RESP 18; TEMP 98.2
[2018-01-07] MEDS ORDERED: LIDOCAINE 5% PATCH TOPICAL SCH (09:00)
== END 2018-01-07 07:49 | disposition home or self-care (01) ==
LOC: EC 05:52
DX: M54.9 Dorsalgia, unspecified (principal); R10.9 Unspecified abdominal pain; R11.0 Nausea; E11.9 Type 2 diabetes mellitus without complications; Z79.84 Long term (current) use of oral hypoglycemic drugs; Z91.048 Other nonmedicinal substance allergy status; Z91.012 Allergy to eggs; Z91.018 Allergy to other foods; Z88.8 Allergy status to other drugs, medicaments and biological substances; Z86.711 Personal history of pulmonary embolism; Z86.73 Personal history of transient ischemic attack (TIA), and cerebral infarction without residual deficits
CPT/HCPCS: 99283; S0119

== ENCOUNTER 2018-03-22 00:36 | Inpatient (IN) | payer OTHER ==
[2018-03-22] MEDS ORDERED: ADENOSINE 3 MG/ML 2 ML VIAL IVP STA (01:05)
[2018-03-22] MEDS ORDERED: LORazepam 2 MG/ML INJ IV STA ×4 (01:05→04:45)
--- NOTE | 2018-03-22 01:08 | ED ---
SOB HPI - General Chief Complaint: Shortness of Breath Stated Complaint: CHARLY Time Seen by Provider: 03/22/18 00:54 Source: patient, EMS Mode of arrival: EMS Limitations: altered mental status - History of Present Illness Initial Comments: This patient is a 62-year-old man brought by ambulance to be evaluated because he is "not feeling well" and by this she indicates that he has been having some dyspnea, palpitations, and some chest discomfort. Patient does have a little bit of difficulty exactly characterize his symptoms. He states it is come on over the course of tonight. He indicates the substernal area. Chest discomfort states that it is a heavy feeling. He is feeling short of breath and has palpitations. The patient does admit to being noncompliant with his medications for a number days. MD Complaint: shortness of breath, chest pain -: hour(s) Severity: moderate Quality: dull Consistency: constant Improves With: nothing Worsens With: nothing Associated Symptoms: chest pain, palpitations Treatments Prior to Arrival: none - Related Data Home Medications Medication Instructions Recorded Confirmed metFORMIN HCL 1,000 mg PO BID 09/23/17 03/22/18 Acetaminophen [Tylenol] 650 mg PO Q4H PRN 01/06/18 03/22/18 Cholecalciferol [Vitamin D3] 1,000 unit PO DAILY 01/06/18 03/22/18 Previous Rx's Medication Instructions Recorded Nadolol [Corgard] 20 mg PO DAILY #30 tab 11/11/17 Amoxicillin/Potassium Clav 1 tab PO Q12HR 14 Days #28 tab 03/25/18 [Augmentin 875-125 Tablet] Allergies Allergy/AdvReac Type Severity Reaction Status Date / Time adhesive tape Allergy Rash/Hives Verified 03/22/18 08:07 egg AdvReac Nausea & Verified 03/22/18 08:07 Vomiting lisinopril AdvReac EYES Verified 03/22/18 08:07 BURN&ITCH/WEAKNESS tomato AdvReac Nausea & Verified 03/22/18 08:07 Vomiting & Diarrhea Review of Systems ROS Statement: Those systems with pertinent positive or pertinent negative responses have been documented in the HPI. ROS Other: All systems not noted in ROS Statement are negative. Constitutional: Denies: fever, chills Eyes: Denies: vision change Respiratory: Reports: dyspnea. Denies: cough, wheezes, hemoptysis Cardiovascular: Reports: chest pain, palpitations. Denies: orthopnea, edema, syncope Gastrointestinal: Reports: nausea. Denies: abdominal pain, vomiting, diarrhea Genitourinary: Denies: dysuria, hematuria Musculoskeletal: Denies: back pain Skin: Denies: rash Neurological: Denies: headache, weakness, numbness Psychiatric: Reports: anxiety Past Medical History Past Medical History: Atrial Fibrillation, Chest Pain / Angina, COPD, CVA/TIA, Diabetes Mellitus, GERD/Reflux, GI Bleed, Hyperlipidemia, Hypertension, Pneumonia, Pulmonary Embolus (PE) Additional Past Medical History / Comment(s): Alcoholism, chronic alcoholic cirrhosis with portal hypertension and previous history of GI bleeding, esophageal varices, diabetes mellitus, hypertension, hyperlipidemia, previous history of childhood seizure which he outgrew not taking any antiepileptic medication, history of atrial fibrillation, history of pulmonary embolism, hypertension, hyperlipidemia, previous history of GI bleed, previous history of CVA without any residual deficits. He also has history of diverticulosis, chronic lower extremity ankle edema, previous history of septicemia, cervical disc disease with chronic back pain, degenerative arthritis involving the lower back, tinnitus History of Any Multi-Drug Resistant Organisms: None Reported Past Surgical History: Appendectomy, Cholecystectomy Additional Past Surgical History / Comment(s): 07/20/17 EGD, 03/21/17 EGD/ colonoscopy, other colonoscopies. Past Anesthesia/Blood Transfusion Reactions: Previous Problems w/ Anesthesia Additional Past Anesthesia/Blood Transfusion Reaction / Comment(s): after appendix removed sob Past Psychological History: Anxiety, Depression Smoking Status: Never smoker Past Alcohol Use History: Occasional Past Drug Use History: None Reported - Past Family History Mother Family Medical History: COPD, CVA/TIA, Dementia Additional Family Medical History / Comment(s): from a stroke Father Family Medical History: Pneumonia Additional Family Medical History / Comment(s): Father of pneumonia when he was close to 80 yrs old. General Exam Limitations: no limitations General appearance: alert, in distress Head exam: Present: atraumatic, normocephalic Eye exam: Present: normal appearance. Absent: scleral icterus, conjunctival injection ENT exam: Present: mucous membranes dry Neck exam: Present: normal inspection Respiratory exam: Present: respiratory distress (Mild tachypnea). Absent: wheezes, rales, rhonchi, stridor Cardiovascular Exam: Present: normal rhythm, tachycardia (Heart rate approximately 148 at my exam), normal heart sounds. Absent: systolic murmur, diastolic murmur, rubs, gallop GI/Abdominal exam: Present: soft. Absent: distended, tenderness, guarding, rebound, rigid, mass Extremities exam: Present: normal inspection, normal capillary refill. Absent: pedal edema, calf tenderness Back exam: Present: normal inspection. Absent: CVA tenderness (R), CVA tenderness (L) Neurological exam: Present: alert Skin exam: Present: warm, dry, intact, normal color. Absent: rash Course Vital Signs 03/22/18 03/22/18 03/22/18 00:38 00:44 00:48 Temperature 98.3 F Pulse Rate 146 H 151 H Respiratory 20 20 Rate Blood Pressure 167/114 156/115 O2 Sat by Pulse 95 Oximetry 03/22/18 03/22/18 03/22/18 01:15 01:30 01:45 Temperature Pulse Rate 141 H 140 H 115 H Respiratory 20 18 18 Rate Blood Pressure 172/116 172/116 O2 Sat by Pulse 95 94 L 94 L Oximetry 03/22/18 03/22/18 03/22/18 01:46 02:00 02:12 Temperature 98.7 F Pulse Rate 135 H 126 H 130 H Respiratory 16 18 Rate Blood Pressure 172/116 O2 Sat by Pulse 97 97 Oximetry 03/22/18 03/22/18 03/22/18 02:15 02:30 03:00 Temperature Pulse Rate 133 H 138 H Respiratory 16 24 Rate Blood Pressure 172/116 172/116 170/109 O2 Sat by Pulse 97 Oximetry 03/22/18 03/22/18 03/22/18 03:30 04:00 04:04 Temperature Pulse Rate 137 H 138 H 140 H Respiratory 16 Rate Blood Pressure 170/109 170/109 164/105 O2 Sat by Pulse 88 L Oximetry 03/22/18 03/22/18 03/22/18 04:07 04:30 04:47 Temperature Pulse Rate 135 H 142 H Respiratory 18 16 Rate Blood Pressure 164/105 O2 Sat by Pulse 96 93 L 97 Oximetry 03/22/18 03/22/18 03/22/18 05:00 05:30 06:00 Temperature Pulse Rate 137 H 142 H Respiratory 18 15 Rate Blood Pressure 174/122 174/122 172/118 O2 Sat by Pulse 95 95 Oximetry 03/22/18 03/22/18 03/22/18 06:20 06:47 06:50 Temperature Pulse Rate 142 H 115 H Respiratory 5 L 16 Rate Blood Pressure 172/118 128/84 128/84 O2 Sat by Pulse 93 L 95 93 L Oximetry 03/22/18 03/22/18 03/22/18 06:55 07:00 07:05 Temperature Pulse Rate Respiratory Rate Blood Pressure 139/92 135/86 137/92 O2 Sat by Pulse 93 L 91 L 91 L Oximetry 03/22/18 03/22/18 03/22/18 07:10 07:27 07:40 Temperature 99.0 F Pulse Rate 121 H 120 H Respiratory 18 18 Rate Blood Pressure 141/94 150/102 160/102 O2 Sat by Pulse 93 L 94 L 94 L Oximetry 03/22/18 03/22/18 03/22/18 07:45 07:50 07:55 Temperature Pulse Rate 120 H 121 H 117 H Respiratory 11 L 14 10 L Rate Blood Pressure 160/102 160/102 160/102 O2 Sat by Pulse 95 95 95 Oximetry 03/22/18 03/22/18 03/22/18 08:00 08:05 08:10 Temperature Pulse Rate 122 H 121 H 121 H Respiratory 5 L 12 5 L Rate Blood Pressure 160/102 168/108 168/108 O2 Sat by Pulse 94 L 95 95 Oximetry 03/22/18 03/22/18 03/22/18 08:15 08:20 08:25 Temperature Pulse Rate 121 H 125 H 126 H Respiratory 14 20 6 L Rate Blood Pressure 168/108 168/108 168/108 O2 Sat by Pulse 95 94 L 92 L Oximetry 03/22/18 03/22/18 03/22/18 08:30 08:35 08:40 Temperature Pulse Rate 125 H 126 H 126 H Respiratory 5 L 6 L 19 Rate Blood Pressure 168/108 168/108 168/108 O2 Sat by Pulse 92 L 94 L 92 L Oximetry 03/22/18 03/22/18 03/22/18 08:45 08:50 08:55 Temperature Pulse Rate 129 H 125 H 129 H Respiratory 10 L 4 L 9 L Rate Blood Pressure 168/108 168/108 168/108 O2 Sat by Pulse 95 94 L 94 L Oximetry 03/22/18 03/22/18 03/22/18 09:00 09:05 09:10 Temperature Pulse Rate 129 H Respiratory 6 L Rate Blood Pressure 164/111 164/111 O2 Sat by Pulse 94 L 94 L Oximetry 03/22/18 03/22/18 03/22/18 09:15 09:20 09:25 Temperature Pulse Rate Respiratory Rate Blood Pressure 164/111 164/111 164/111 O2 Sat by Pulse Oximetry Medical Decision Making - Medical Decision Making Patient is 62-year-old man presenting with chest pain, dyspnea, palpitations. The patient did deny alcohol use but smells a ketosis and alcohol is positive. I suspect that he does drink more frequently than admits to, and may be having some element of alcohol withdrawal. In addition, patient has been noncompliant with his beta madeline and suspect that there is some rebound there. The patient is given multiple fluid boluses and also started back on beta madeline. In addition labs for cardiac and septic profiles added, but at this point it appears that the lactic acidosis probably related to alcohol consumption. Patient is markedly improved with treatment. Be admitted for further treatment as well as to rule out coronary syndrome. He is discussed with . - Lab Data Result diagrams: 03/25/18 07:49 03/25/18 07:49 Lab Results 03/22/18 03/22/18 03/22/18 Range/Units 00:58 00:58 00:58 WBC 6.9 (3.8-10.6) k/uL RBC 4.30 (4.30-5.90) m/uL Hgb 12.5 L (13.0-17.5) gm/dL Hct 38.8 L (39.0-53.0) % MCV 90.2 (80.0-100.0) fL MCH 29.0 (25.0-35.0) pg MCHC 32.2 (31.0-37.0) g/dL RDW 17.1 H (11.5-15.5) % Plt Count 138 L (150-450) k/uL Neutrophils % 67 % Lymphocytes % 24 % Monocytes % 7 % Eosinophils % 0 % Basophils % 0 % Neutrophils # 4.6 (1.3-7.7) k/uL Lymphocytes # 1.7 (1.0-4.8) k/uL Monocytes # 0.5 (0-1.0) k/uL Eosinophils # 0.0 (0-0.7) k/uL Basophils # 0.0 (0-0.2) k/uL Anisocytosis Slight PT (9.0-12.0) sec INR (<1.2) APTT (22.0-30.0) sec D-Dimer (<0.60) mg/L FEU Sodium 142 (137-145) mmol/L Potassium 3.8 (3.5-5.1) mmol/L Chloride 107 (98-107) mmol/L Carbon Dioxide 24 (22-30) mmol/L Anion Gap 11 mmol/L BUN 11 (9-20) mg/dL Creatinine 0.68 (0.66-1.25) mg/dL Est GFR (CKD-EPI)AfAm >90 (>60 ml/min/1.73 sqM) Est GFR (CKD-EPI)NonAf >90 (>60 ml/min/1.73 sqM) Glucose 130 H (74-99) mg/dL Lactic Ac Sepsis Rflx Plasma Lactic Acid Hitesh (0.7-2.0) mmol/L Calcium 9.0 (8.4-10.2) mg/dL Magnesium 1.3 L (1.6-2.3) mg/dL Total Bilirubin 0.7 (0.2-1.3) mg/dL AST 72 H (17-59) U/L ALT 46 (21-72) U/L Alkaline Phosphatase 110 (38-126) U/L Total Creatine Kinase 93 (55-170) U/L CK-MB (CK-2) 0.4 (0.0-2.4) ng/mL CK-MB (CK-2) Rel Index 0.4 Troponin I <0.012 (0.000-0.034) ng/mL NT-Pro-B Natriuret Pep pg/mL Total Protein 7.8 (6.3-8.2) g/dL Albumin 3.8 (3.5-5.0) g/dL Urine Color Urine Appearance (Clear) Urine pH (5.0-8.0) Ur Specific [place] (1.001-1.035) Urine Protein (Negative) Urine Glucose (UA) (Negative) Urine Ketones (Negative) Urine Blood (Negative) Urine Nitrite (Negative) Urine Bilirubin (Negative) Urine Urobilinogen (<2.0) mg/dL Ur Leukocyte Esterase (Negative) Serum Alcohol 129 mg/dL 03/22/18 03/22/18 03/22/18 Range/Units 00:58 00:58 00:58 WBC (3.8-10.6) k/uL RBC (4.30-5.90) m/uL Hgb (13.0-17.5) gm/dL Hct (39.0-53.0) % MCV (80.0-100.0) fL MCH (25.0-35.0) pg MCHC (31.0-37.0) g/dL RDW (11.5-15.5) % Plt Count (150-450) k/uL Neutrophils % % Lymphocytes % % Monocytes % % Eosinophils % % Basophils % % Neutrophils # (1.3-7.7) k/uL Lymphocytes # (1.0-4.8) k/uL Monocytes # (0-1.0) k/uL Eosinophils # (0-0.7) k/uL Basophils # (0-0.2) k/uL Anisocytosis PT 11.2 (9.0-12.0) sec INR 1.2 H (<1.2) APTT 26.9 (22.0-30.0) sec D-Dimer 0.84 H (<0.60) mg/L FEU Sodium (137-145) mmol/L Potassium (3.5-5.1) mmol/L Chloride (98-107) mmol/L Carbon Dioxide (22-30) mmol/L Anion Gap mmol/L BUN (9-20) mg/dL Creatinine (0.66-1.25) mg/dL Est GFR (CKD-EPI)AfAm (>60 ml/min/1.73 sqM) Est GFR (CKD-EPI)NonAf (>60 ml/min/1.73 sqM) Glucose (74-99) mg/dL Lactic Ac Sepsis Rflx Plasma Lactic Acid Hitesh 4.2 H* (0.7-2.0) mmol/L Calcium (8.4-10.2) mg/dL Magnesium (1.6-2.3) mg/dL Total Bilirubin (0.2-1.3) mg/dL AST (17-59) U/L ALT (21-72) U/L Alkaline Phosphatase (38-126) U/L Total Creatine Kinase (55-170) U/L CK-MB (CK-2) (0.0-2.4) ng/mL CK-MB (CK-2) Rel Index Troponin I (0.000-0.034) ng/mL NT-Pro-B Natriuret Pep 37 pg/mL Total Protein (6.3-8.2) g/dL Albumin (3.5-5.0) g/dL Urine Color Urine Appearance (Clear) Urine pH (5.0-8.0) Ur Specific [place] (1.001-1.035) Urine Protein (Negative) Urine Glucose (UA) (Negative) Urine Ketones (Negative) Urine Blood (Negative) Urine Nitrite (Negative) Urine Bilirubin (Negative) Urine Urobilinogen (<2.0) mg/dL Ur Leukocyte Esterase (Negative) Serum Alcohol mg/dL 03/22/18 03/22/18 Range/Units 01:33 02:58 WBC (3.8-10.6) k/uL RBC (4.30-5.90) m/uL Hgb (13.0-17.5) gm/dL Hct (39.0-53.0) % MCV (80.0-100.0) fL MCH (25.0-35.0) pg MCHC (31.0-37.0) g/dL RDW (11.5-15.5) % Plt Count (150-450) k/uL Neutrophils % % Lymphocytes % % Monocytes % % Eosinophils % % Basophils % % Neutrophils # (1.3-7.7) k/uL Lymphocytes # (1.0-4.8) k/uL Monocytes # (0-1.0) k/uL Eosinophils # (0-0.7) k/uL Basophils # (0-0.2) k/uL Anisocytosis PT (9.0-12.0) sec INR (<1.2) APTT (22.0-30.0) sec D-Dimer (<0.60) mg/L FEU Sodium (137-145) mmol/L Potassium (3.5-5.1) mmol/L Chloride (98-107) mmol/L Carbon Dioxide (22-30) mmol/L Anion Gap mmol/L BUN (9-20) mg/dL Creatinine (0.66-1.25) mg/dL Est GFR (CKD-EPI)AfAm (>60 ml/min/1.73 sqM) Est GFR (CKD-EPI)NonAf (>60 ml/min/1.73 sqM) Glucose (74-99) mg/dL Lactic Ac Sepsis Rflx Y Plasma Lactic Acid Hitesh (0.7-2.0) mmol/L Calcium (8.4-10.2) mg/dL Magnesium (1.6-2.3) mg/dL Total Bilirubin (0.2-1.3) mg/dL AST (17-59) U/L ALT (21-72) U/L Alkaline Phosphatase (38-126) U/L Total Creatine Kinase (55-170) U/L CK-MB (CK-2) (0.0-2.4) ng/mL CK-MB (CK-2) Rel Index Troponin I (0.000-0.034) ng/mL NT-Pro-B Natriuret Pep pg/mL Total Protein (6.3-8.2) g/dL Albumin (3.5-5.0) g/dL Urine Color Light Yellow Urine Appearance Clear (Clear) Urine pH 6.5 (5.0-8.0) Ur Specific [place] 1.014 (1.001-1.035) Urine Protein Negative (Negative) Urine Glucose (UA) Trace H (Negative) Urine Ketones Negative (Negative) Urine Blood Negative (Negative) Urine Nitrite Negative (Negative) Urine Bilirubin Negative (Negative) Urine Urobilinogen <2.0 (<2.0) mg/dL Ur Leukocyte Esterase Negative (Negative) Serum Alcohol mg/dL - EKG Data -: EKG Interpreted by Mt EKG shows normal: axis (Normal), intervals (Normal), QRS complexes (Normal) Rate: tachycardia (Rate approximately 149 bpm) Interpretation: nonspecific ST-T wave changes, other (Patient's underlying rhythm is a regular appearing, narrow complex tachycardia likely to be SVT.) Critical Care Time Critical Care Time: Yes (40 minutes) Disposition Clinical Impression: Alcohol withdrawal, Chest pain, SVT (supraventricular tachycardia), Hypomagnesemia Disposition: ADMITTED IP TO THIS HOSP Condition: Stable Is patient prescribed a controlled substance at d/c from ED?: No
[2018-03-22 01:21] LABS: Anisocytosis Slight; Basophils % (A) 0 %; Eosinophils % (A) 0 %; HCT 38.8 % (39.0-53.0); HGB 12.5 gm/dL (13.0-17.5); Lymphocytes # (A) 1.7 k/uL (1.0-4.8); Lymphocytes % (A) 24 %; MCHC 32.2 g/dL (31.0-37.0); MCV 90.2 fL (80.0-100.0); Mean Platelet Volume 7.2; Monocytes # (A) 0.5 k/uL (0-1.0); Monocytes % (A) 7 %; Neutrophils # (A) 4.6 k/uL (1.3-7.7); Neutrophils % (A) 67 %; Platelet Count 138 k/uL (150-450); RDW 17.1 % (11.5-15.5); WBC 6.9 k/uL (3.8-10.6)
[2018-03-22] MEDS ORDERED: SODIUM CHLORIDE 0.9% 1,000 ML IV ONE ×3 (01:24→04:45)
[2018-03-22] MEDS ORDERED: METOPROLOL TARTRATE 5 MG/5 ML VIAL IVP STA (01:27)
[2018-03-22 01:31] LABS: ALT 46 U/L (21-72); AST 72 U/L (17-59); Albumin 3.8 g/dL (3.5-5.0); Alkaline Phosphatase 110 U/L (38-126); Anion Gap 11 mmol/L; Blood Urea Nitrogen 11 mg/dL (9-20); Carbon Dioxide 24 mmol/L (22-30); Chloride 107 mmol/L (98-107); Glucose 130 mg/dL (74-99); Magnesium 1.3 mg/dL (1.6-2.3); Potassium 3.8 mmol/L (3.5-5.1); Sodium 142 mmol/L (137-145); Total Bilirubin 0.7 mg/dL (0.2-1.3); Total Protein 7.8 g/dL (6.3-8.2)
[2018-03-22 01:34] LABS: Alcohol 129 mg/dL
[2018-03-22 01:36] LABS: INR 1.2 (<1.2); Partial Thromboplastin Time 26.9 sec (22.0-30.0); Prothrombin Time 11.2 sec (9.0-12.0)
[2018-03-22 01:42] LABS: Creatine Kinase 93 U/L (55-170)
[2018-03-22 01:43] LABS: D-Dimer 0.84 mg/L FEU (<0.60)
[2018-03-22 01:56] LABS: Creatine Kinase MB 0.4 ng/mL (0.0-2.4); Troponin I <0.012 ng/mL (0.000-0.034)
--- NOTE | 2018-03-22 01:56 | XR ---
EXAMINATION TYPE: XR chest 1V portable DATE OF EXAM: 03/22/2018 COMPARISON: 12/06/2017 HISTORY: Difficulty breathing. COPD. TECHNIQUE: Single frontal view of the chest is obtained. FINDINGS: There is no heart failure nor confluent pneumonic infiltrate. There is some linear density at the right pulmonary hilum consistent with scarring. There is no pleural effusion. Heart is shift ed to the left side but this is a stable appearance. There are chest leads. IMPRESSION: There is suggestion of some volume loss on the left side with shift of heart to the lef t side without change compared to old exam. No acute lung disease.
[2018-03-22] MEDS ORDERED: Acetaminophen-Codeine 300-30mg TAB PO STA (03:02)
[2018-03-22] MEDS ORDERED: LORazepam 2 MG/ML INJ IV PRN (03:19)
[2018-03-22] MEDS ORDERED: THIAMINE 100 MG/ML 2 ML VIAL IM STA (03:19)
--- NOTE | 2018-03-22 03:19 | CT ---
EXAMINATION TYPE: CT chest angio for PE DATE OF EXAM: 03/22/2018 COMPARISON: 12/06/2017 HISTORY: r/o pe, chest pain CT DLP: 270.70 mGycm Automated exposure control for dose reduction was used. CONTRAST: CT Chest for pulmonary embolism performed with with IV Contrast, patient injected with 67 mL of Isovu e 370. There are 3-D post processed images. there is mild coarsening of interstitial markings in the lower lung guadalupe. There is no consolidation or mass. There is small hiatal hernia. Heart size is normal. There is no pericardial effusion. Heart appears shifted to the left side but this is probably normal variation. There is normal contrast opa cification of the pulmonary arteries. I see no filling defect. Thoracic aorta is intact without evide nce of aneurysm or dissection. Ascending aorta measures 3.4 cm. There is no mediastinal adenopathy. T here are no hilar masses. There is 50% anterior wedging of T4 vertebra. Impression No evidence of pulmonary embolism. T4 compression fracture unchanged.
[2018-03-22] MEDS ORDERED: NITROGLYCERIN SL TABS 0.4 MG TAB SUBLINGUAL PRN (03:20)
[2018-03-22 03:23] LABS: Appearance,Urine Clear (Clear); Bilirubin,Urine Negative (Negative); Blood,Urine Negative (Negative); Color,Urine Light Yellow; Glucose,Urine (UA) Trace (Negative); Ketones,Urine Negative (Negative); Leukocyte Esterase,Urine Negative (Negative); Nitrite,Urine Negative (Negative); PH, Urine 6.5 (5.0-8.0); Protein,Urine Negative (Negative); Specific Gravity,Urine 1.014 (1.001-1.035); Urobilinogen,Urine <2.0 mg/dL (<2.0)
[2018-03-22] MEDS ORDERED: LABETALOL 5 MG/ML VIAL MDV IVP STA (06:18)
[2018-03-22 07:00] LABS: Creatine Kinase MB 0.5 ng/mL (0.0-2.4); Troponin I 0.018 ng/mL (0.000-0.034)
[2018-03-22 08:55] LABS: Anisocytosis Slight; Basophils % (A) 0 %; Eosinophils % (A) 1 %; HCT 38.2 % (39.0-53.0); HGB 12.5 gm/dL (13.0-17.5); Lymphocytes # (A) 1.5 k/uL (1.0-4.8); Lymphocytes % (A) 24 %; MCH 29.2 pg (25.0-35.0); MCHC 32.6 g/dL (31.0-37.0); MCV 89.7 fL (80.0-100.0); Mean Platelet Volume 8.6; Monocytes # (A) 0.4 k/uL (0-1.0); Monocytes % (A) 7 %; Neutrophils # (A) 4.3 k/uL (1.3-7.7); Neutrophils % (A) 68 %; Platelet Count 125 k/uL (150-450); RBC 4.26 m/uL (4.30-5.90); RDW 17.3 % (11.5-15.5); WBC 6.4 k/uL (3.8-10.6)
[2018-03-22 09:02] LABS: ALT 41 U/L (21-72); AST 71 U/L (17-59); Albumin 3.5 g/dL (3.5-5.0); Alkaline Phosphatase 100 U/L (38-126); Anion Gap 10 mmol/L; Blood Urea Nitrogen 8 mg/dL (9-20); Calcium 8.2 mg/dL (8.4-10.2); Carbon Dioxide 26 mmol/L (22-30); Chloride 105 mmol/L (98-107); Glucose 131 mg/dL (74-99); Potassium 3.7 mmol/L (3.5-5.1); Sodium 141 mmol/L (137-145); Total Bilirubin 0.9 mg/dL (0.2-1.3); Total Protein 7.5 g/dL (6.3-8.2)
[2018-03-22] MEDS: CHOLECALCIFEROL 1,000 UNIT TAB PO SCH (09:27)
[2018-03-22] MEDS: NADOLOL 20 MG TAB PO SCH (09:27)
[2018-03-22] MEDS: MAGNESIUM OXIDE 400 MG TAB PO SCH ×2 (09:27→19:54)
[2018-03-22] MEDS: LORazepam 2 MG/ML INJ IV PRN ×4 (09:30→16:22)
[2018-03-22] MEDS: metFORMIN 500 MG TAB PO SCH ×2 (09:39→17:43)
[2018-03-22] MEDS ORDERED: Magnesium Replacement Protocol 1 EACH MISC MISCELLANE PRN (10:32)
--- NOTE | 2018-03-22 10:43 | P.HPIM ---
History of Present Illness H&P Date: 03/22/18 Chief Complaint: Chest pain and SVT This is a 62-year-old male patient of Dr. Phillips. Patient presented to emergency room with complaints of chest pain. EKG completed in route showing patient in SVT. She has known past medical history of atrial fibrillation, chest pain, COPD, CVA, diabetes mellitus, GERD, GI bleed, hyperlipidemia, essential hypertension, pneumonia, pulmonary embolism, esophageal varices and seizures. Patient also has known past EtOH history with chronic liver cirrhosis with secondary portal hypertension. Chest x-ray completed showing suggestion of small volume loss and left side with shift of heart left-sided without change compared to exam. No acute lung disease. D-dimer elevated at 0.84 CTA completed no evidence of pulmonary embolism. T4 compression fracture unchanged. Serum alcohol 129. Alcohol withdrawal protocal initiated per emergency room. Initial troponin negative. Second troponin 0.018. Lactic acid initial elevated at 4.2. repeat 2.1. Cardiology services have been consulted. At this time patient is complaining of some chest discomfort. Patient also complaining of nausea and vomiting. Patient denies any urinary burning or frequency Review of Systems Please refer to HPI otherwise unremarkable Past Medical History Past Medical History: Atrial Fibrillation, Chest Pain / Angina, COPD, CVA/TIA, Diabetes Mellitus, GERD/Reflux, GI Bleed, Hearing Disorder / Deafness, Hyperlipidemia, Hypertension, Pneumonia, Pulmonary Embolus (PE) Additional Past Medical History / Comment(s): Alcoholism, chronic alcoholic cirrhosis with portal hypertension, GI bleeding-upper and lower, esophageal varices, diverticulosis, NIDDM type II, previous history of childhood seizure which he thought he outgrew-possible seizure 11/2017, pt states sometimes he shakes and feels confused, L lung pulmonary embolism, chronic lower extremity ankle edema, previous history of septicemia, cervical disc disease with chronic back pain, degenerative arthritis involving the lower back, scoliosis, tinnitus bilateral ears/hears popping and cracking in L ear, vitamin D deficiency, iron anemia, thrombocytopenia, hypomagnesemia, intermittent diarrhea. History of Any Multi-Drug Resistant Organisms: None Reported Past Surgical History: Appendectomy, Cholecystectomy Additional Past Surgical History / Comment(s): 07/20/17 EGD, 03/21/17 EGD/ colonoscopy, other colonoscopies. Past Anesthesia/Blood Transfusion Reactions: Previous Problems w/ Anesthesia Additional Past Anesthesia/Blood Transfusion Reaction / Comment(s): after appendix removed sob Smoking Status: Never smoker - Past Family History Mother Family Medical History: COPD, CVA/TIA, Dementia Additional Family Medical History / Comment(s): from a stroke Father Family Medical History: Pneumonia Additional Family Medical History / Comment(s): Father of pneumonia when he was close to 80 yrs old. Medications and Allergies Home Medications Medication Instructions Recorded Confirmed Type metFORMIN HCL 1,000 mg PO BID 09/23/17 03/22/18 History Nadolol [Corgard] 20 mg PO DAILY #30 tab 11/11/17 03/22/18 Rx Acetaminophen [Tylenol] 650 mg PO Q4H PRN 01/06/18 03/22/18 History Cholecalciferol [Vitamin D3] 1,000 unit PO DAILY 01/06/18 03/22/18 History Allergies Allergy/AdvReac Type Severity Reaction Status Date / Time adhesive tape Allergy Rash/Hives Verified 03/22/18 08:07 egg AdvReac Nausea & Verified 03/22/18 08:07 Vomiting lisinopril AdvReac EYES Verified 03/22/18 08:07 BURN&ITCH/WEAKNESS tomato AdvReac Nausea & Verified 03/22/18 08:07 Vomiting & Diarrhea Physical Exam Vitals: Vital Signs Temp Pulse Pulse Resp BP BP Pulse Ox 03/22/18 09:39 120 H 20 180/103 94 L 03/22/18 09:25 164/111 03/22/18 09:20 164/111 03/22/18 09:15 164/111 03/22/18 09:10 164/111 03/22/18 09:05 164/111 94 L 03/22/18 09:00 129 H 6 L 94 L 03/22/18 08:55 129 H 9 L 168/108 94 L 03/22/18 08:50 125 H 4 L 168/108 94 L 03/22/18 08:45 129 H 10 L 168/108 95 03/22/18 08:40 126 H 19 168/108 92 L 03/22/18 08:35 126 H 6 L 168/108 94 L 03/22/18 08:30 125 H 5 L 168/108 92 L 03/22/18 08:25 126 H 6 L 168/108 92 L 03/22/18 08:20 125 H 20 168/108 94 L 03/22/18 08:15 121 H 14 168/108 95 03/22/18 08:10 121 H 5 L 168/108 95 03/22/18 08:05 121 H 12 168/108 95 03/22/18 08:00 122 H 5 L 160/102 94 L 03/22/18 07:55 117 H 10 L 160/102 95 03/22/18 07:50 121 H 14 160/102 95 03/22/18 07:45 120 H 11 L 160/102 95 03/22/18 07:40 120 H 18 160/102 94 L 03/22/18 07:27 99.0 F 121 H 18 150/102 94 L 03/22/18 07:10 141/94 93 L 03/22/18 07:05 137/92 91 L 03/22/18 07:00 135/86 91 L 03/22/18 06:55 139/92 93 L 03/22/18 06:50 128/84 93 L 03/22/18 06:47 115 H 16 128/84 95 03/22/18 06:20 142 H 5 L 172/118 93 L 03/22/18 06:00 142 H 15 172/118 95 03/22/18 05:30 174/122 03/22/18 05:00 137 H 18 174/122 95 03/22/18 04:47 142 H 16 97 03/22/18 04:30 135 H 18 164/105 93 L 03/22/18 04:07 96 03/22/18 04:04 140 H 16 164/105 88 L 03/22/18 04:00 138 H 170/109 03/22/18 03:30 137 H 170/109 03/22/18 03:00 138 H 24 170/109 03/22/18 02:30 172/116 03/22/18 02:15 133 H 16 172/116 97 03/22/18 02:12 98.7 F 130 H 18 97 03/22/18 02:00 126 H 16 172/116 97 03/22/18 01:46 135 H 03/22/18 01:45 115 H 18 172/116 94 L 03/22/18 01:30 140 H 18 172/116 94 L 03/22/18 01:15 141 H 20 95 03/22/18 00:48 151 H 156/115 03/22/18 00:44 20 03/22/18 00:38 98.3 F 146 H 20 167/114 95 Intake and Output 03/21/18 03/22/18 03/22/18 22:59 06:59 14:59 Other: Weight 74.389 kg Head normocephalic Neck supple Lungs clear to auscultation bilaterally no wheezing or crackles Heart regular rate and rhythm S1-S2, no rub or gallop Abdomen is soft nontender nondistended positive bowel sounds no hepatosplenomegaly Extremities no edema Neuro alert and orientated to 3 Results CBC & Chem 7: 03/22/18 06:12 03/22/18 06:12 Labs: Abnormal Lab Results - Last 24 Hours (Table) 03/22/18 03/22/18 03/22/18 Range/Units 00:58 00:58 00:58 RBC (4.30-5.90) m/uL Hgb 12.5 L (13.0-17.5) gm/dL Hct 38.8 L (39.0-53.0) % RDW 17.1 H (11.5-15.5) % Plt Count 138 L (150-450) k/uL INR 1.2 H (<1.2) D-Dimer 0.84 H (<0.60) mg/L FEU BUN (9-20) mg/dL Creatinine (0.66-1.25) mg/dL Glucose 130 H (74-99) mg/dL Plasma Lactic Acid Hitesh (0.7-2.0) mmol/L Calcium (8.4-10.2) mg/dL Magnesium 1.3 L (1.6-2.3) mg/dL AST 72 H (17-59) U/L Urine Glucose (UA) (Negative) 03/22/18 03/22/18 03/22/18 Range/Units 00:58 02:58 06:12 RBC (4.30-5.90) m/uL Hgb (13.0-17.5) gm/dL Hct (39.0-53.0) % RDW (11.5-15.5) % Plt Count (150-450) k/uL INR (<1.2) D-Dimer (<0.60) mg/L FEU BUN (9-20) mg/dL Creatinine (0.66-1.25) mg/dL Glucose (74-99) mg/dL Plasma Lactic Acid Hitesh 4.2 H* 2.1 H* (0.7-2.0) mmol/L Calcium (8.4-10.2) mg/dL Magnesium (1.6-2.3) mg/dL AST (17-59) U/L Urine Glucose (UA) Trace H (Negative) 03/22/18 03/22/18 Range/Units 06:12 06:12 RBC 4.26 L (4.30-5.90) m/uL Hgb 12.5 L (13.0-17.5) gm/dL Hct 38.2 L (39.0-53.0) % RDW 17.3 H (11.5-15.5) % Plt Count 125 L (150-450) k/uL INR (<1.2) D-Dimer (<0.60) mg/L FEU BUN 8 L (9-20) mg/dL Creatinine 0.58 L (0.66-1.25) mg/dL Glucose 131 H (74-99) mg/dL Plasma Lactic Acid Hitesh (0.7-2.0) mmol/L Calcium 8.2 L (8.4-10.2) mg/dL Magnesium 1.0 L (1.6-2.3) mg/dL AST 71 H (17-59) U/L Urine Glucose (UA) (Negative) Thrombosis Risk Factor Assmnt - Choose All That Apply Any of the Below Risk Factors Present?: Yes Each Factor Represents 1 point: Abnormal pulmonary function (COPD) Other Risk Factors: Yes Each Risk Factor Represents 2 Points: Age 61-74 years Each Risk Factor Represents 3 Points: History of DVT/PE Other congenital or acquired thrombophilia - If yes, enter type in comment: No Thrombosis Risk Factor Assessment Total Risk Factor Score: 6 Thrombosis Risk Factor Assessment Level: High Risk Assessment and Plan Assessment: 1. Chest pain. EKG completed showing patient in supraventricular tachycardia. This x-ray completed showing suggestion of some volume loss in the left side with shift of the heart left side without change compared to old exam. No acute lung disease. D-dimer 0.84. CTA completed showing no pulmonary embolism. T4 compression fracture unchanged. Cardiology services have been consulted. Initial troponin negative. Second troponin 0.018. Awaiting cardiology input 2. History of alcohol dependence. Patient reports he has been drinking for one week. Serum alcohol 128 upon arrival. CIWA protocal initiated. Continue thiamine 3. History of paroxysmal atrial fibrillation not on anticoagulation due to history of esophageal varices 4. Diabetes mellitus type 2. She maintained on metformin 5. History of esophageal varices per EGD and ligation on 10/21/2017 6. History of pulmonary embolism 7. Iron deficiency anemia 8. History of TIA 9. Essential hypertension. Patient maintained on nadolol. 10. History of COPD. No exacerbation at this time 11. Chronic liver cirrhosis with secondary portal hypertension 12. Vitamin D deficiency 13. History of thrombocytopenia. Platelet level 125 14. Elevated lactic acid. Initial lactic acid 4.2. Repeat 2.1 blood culture has been ordered. DVT prophylaxis SCDs. GI prophylaxis Protonix Time with Patient: Greater than 30 (Greater than 60% of the total time spent in counseling and coordination of care. I performed an examination of the patient and discussed their management with the Nurse Practitioner. I have reviewed the Nurse Practitioner's notes and agree with the documented findings and plan of care)
[2018-03-22] MEDS: MAGNESIUM SULFATE-D5W PMX 1 GM in DEXTROSE/WATER 1 100ML.BAG IVPB SCH ×3 (11:18→13:17)
[2018-03-22] MEDS: cloNIDine HCL 0.1 MG TAB PO SCH ×2 (11:18→19:54)
[2018-03-22 11:44] LABS: Glucose,Whole Blood 151 mg/dL (75-99)
--- NOTE | 2018-03-22 12:13 | P.CRDCN ---
History of Present Illness Consult date: 03/22/18 Requesting physician: Charlette Finney Reason for Consult (text): SVT, chest pain Chief complaint: rapid heart beat, shortness of breath, left facial and head pain History of present illness: This is a pleasant 62-year-old gentleman with history of dyslipidemia, hypertension, diabetes, esophageal varices with ligation by Dr. Esteban in October, chronic alcohol abuse, alcoholic cirrhosis with portal hypertension and history of GI bleeding. Patient underwent dobutamine stress echo earlier this year that was negative. Presented to the hospital on this occasion with complaints of shortness of breath and feeling his heart racing. Also complaining of some left facial pain and headache. EKG on admission was read as SVT and patient was admitted with the same. Upon further review, EKG actually shows sinus rhythm. No evidence of SVT. Patient has had no chest discomfort, only complaint of feeling his heart beating fast. Complains of left-sided facial pain and headache, apparently has a bad tooth. Patient does have some evidence of left face swelling and redness. Laboratory values show a hemoglobin of 12.5 , potassium 3.7, BUN of 8, creatinine 0.58 and a magnesium of 1.0. According to the patient he last drank a few days ago serum alcohol level on admission was 129. Troponins were negative 2 and NT proBNP was 37. Upon examination, patient continues to complain of feeling his heart beating fast and left-sided facial pain and headache. Her rate remains elevated as well as blood pressure. Patient has been started on CIWA protocol. Patient appears to be in withdrawal. He is shaky, restless, nauseous, tachycardic and hypertensive. Past Medical History Past Medical History: Atrial Fibrillation, Chest Pain / Angina, COPD, CVA/TIA, Diabetes Mellitus, GERD/Reflux, GI Bleed, Hearing Disorder / Deafness, Hyperlipidemia, Hypertension, Pneumonia, Pulmonary Embolus (PE) Additional Past Medical History / Comment(s): Alcoholism, chronic alcoholic cirrhosis with portal hypertension, GI bleeding-upper and lower, esophageal varices, diverticulosis, NIDDM type II, previous history of childhood seizure which he thought he outgrew-possible seizure 11/2017, pt states sometimes he shakes and feels confused, L lung pulmonary embolism, chronic lower extremity ankle edema, previous history of septicemia, cervical disc disease with chronic back pain, degenerative arthritis involving the lower back, scoliosis, tinnitus bilateral ears/hears popping and cracking in L ear, vitamin D deficiency, iron anemia, thrombocytopenia, hypomagnesemia, intermittent diarrhea. History of Any Multi-Drug Resistant Organisms: None Reported Past Surgical History: Appendectomy, Cholecystectomy Additional Past Surgical History / Comment(s): 07/20/17 EGD, 03/21/17 EGD/ colonoscopy, other colonoscopies. Past Anesthesia/Blood Transfusion Reactions: Previous Problems w/ Anesthesia Additional Past Anesthesia/Blood Transfusion Reaction / Comment(s): after appendix removed sob Smoking Status: Never smoker - Past Family History Mother Family Medical History: COPD, CVA/TIA, Dementia Additional Family Medical History / Comment(s): from a stroke Father Family Medical History: Pneumonia Additional Family Medical History / Comment(s): Father of pneumonia when he was close to 80 yrs old. Medications and Allergies Home Medications Medication Instructions Recorded Confirmed Type metFORMIN HCL 1,000 mg PO BID 09/23/17 03/22/18 History Nadolol [Corgard] 20 mg PO DAILY #30 tab 11/11/17 03/22/18 Rx Acetaminophen [Tylenol] 650 mg PO Q4H PRN 01/06/18 03/22/18 History Cholecalciferol [Vitamin D3] 1,000 unit PO DAILY 01/06/18 03/22/18 History Allergies Allergy/AdvReac Type Severity Reaction Status Date / Time adhesive tape Allergy Rash/Hives Verified 03/22/18 08:07 egg AdvReac Nausea & Verified 03/22/18 08:07 Vomiting lisinopril AdvReac EYES Verified 03/22/18 08:07 BURN&ITCH/WEAKNESS tomato AdvReac Nausea & Verified 03/22/18 08:07 Vomiting & Diarrhea Physical Exam Vitals: Vital Signs Temp Pulse Pulse Resp BP BP Pulse Ox 03/22/18 11:46 98.4 F 125 H 20 170/102 96 03/22/18 09:39 120 H 20 180/103 94 L 03/22/18 09:25 164/111 03/22/18 09:20 164/111 03/22/18 09:15 164/111 03/22/18 09:10 164/111 03/22/18 09:05 164/111 94 L 03/22/18 09:00 129 H 6 L 94 L 03/22/18 08:55 129 H 9 L 168/108 94 L 03/22/18 08:50 125 H 4 L 168/108 94 L 03/22/18 08:45 129 H 10 L 168/108 95 03/22/18 08:40 126 H 19 168/108 92 L 03/22/18 08:35 126 H 6 L 168/108 94 L 03/22/18 08:30 125 H 5 L 168/108 92 L 03/22/18 08:25 126 H 6 L 168/108 92 L 03/22/18 08:20 125 H 20 168/108 94 L 03/22/18 08:15 121 H 14 168/108 95 03/22/18 08:10 121 H 5 L 168/108 95 03/22/18 08:05 121 H 12 168/108 95 03/22/18 08:00 122 H 5 L 160/102 94 L 03/22/18 07:55 117 H 10 L 160/102 95 03/22/18 07:50 121 H 14 160/102 95 03/22/18 07:45 120 H 11 L 160/102 95 03/22/18 07:40 120 H 18 160/102 94 L 03/22/18 07:27 99.0 F 121 H 18 150/102 94 L 03/22/18 07:10 141/94 93 L 03/22/18 07:05 137/92 91 L 03/22/18 07:00 135/86 91 L 03/22/18 06:55 139/92 93 L 03/22/18 06:50 128/84 93 L 03/22/18 06:47 115 H 16 128/84 95 03/22/18 06:20 142 H 5 L 172/118 93 L 03/22/18 06:00 142 H 15 172/118 95 03/22/18 05:30 174/122 03/22/18 05:00 137 H 18 174/122 95 03/22/18 04:47 142 H 16 97 03/22/18 04:30 135 H 18 164/105 93 L 03/22/18 04:07 96 03/22/18 04:04 140 H 16 164/105 88 L 03/22/18 04:00 138 H 170/109 03/22/18 03:30 137 H 170/109 03/22/18 03:00 138 H 24 170/109 03/22/18 02:30 172/116 03/22/18 02:15 133 H 16 172/116 97 03/22/18 02:12 98.7 F 130 H 18 97 03/22/18 02:00 126 H 16 172/116 97 03/22/18 01:46 135 H 03/22/18 01:45 115 H 18 172/116 94 L 03/22/18 01:30 140 H 18 172/116 94 L 03/22/18 01:15 141 H 20 95 03/22/18 00:48 151 H 156/115 03/22/18 00:44 20 03/22/18 00:38 98.3 F 146 H 20 167/114 95 Intake and Output 03/21/18 03/22/18 03/22/18 22:59 06:59 14:59 Other: Weight 74.389 kg PHYSICAL EXAMINATION: HEENT: Head is atraumatic, normocephalic. Pupils equal, round. Neck is supple. There is no elevated jugular venous pressure. HEART EXAMINATION: Heart sounds regular, S1 and S2 normal. No murmur or gallop heard. Tachycardia noted. CHEST EXAMINATION: Lungs are clear to auscultation and precussion. No chest wall tenderness is noted on palpation or with deep breathing. ABDOMEN: Soft, nontender. Bowel sounds are heard. No organomegaly noted. EXTREMITIES: 2+ peripheral pulses with no evidence of peripheral edema and no calf tenderness noted. NEUROLOGIC patient is awake, alert and oriented x3, restless, visible tremor. . Results 03/22/18 06:12 03/22/18 06:12 Cardiac Enzymes 03/22/18 03/22/18 03/22/18 Range/Units 00:58 00:58 06:12 AST 72 H (17-59) U/L CK-MB (CK-2) 0.4 0.5 (0.0-2.4) ng/mL Troponin I <0.012 0.018 (0.000-0.034) ng/mL 03/22/18 Range/Units 06:12 AST 71 H (17-59) U/L CK-MB (CK-2) (0.0-2.4) ng/mL Troponin I (0.000-0.034) ng/mL Coagulation 03/22/18 Range/Units 00:58 PT 11.2 (9.0-12.0) sec APTT 26.9 (22.0-30.0) sec CBC 03/22/18 03/22/18 Range/Units 00:58 06:12 WBC 6.9 6.4 (3.8-10.6) k/uL RBC 4.30 4.26 L (4.30-5.90) m/uL Hgb 12.5 L 12.5 L (13.0-17.5) gm/dL Hct 38.8 L 38.2 L (39.0-53.0) % Plt Count 138 L 125 L (150-450) k/uL Comprehensive Metabolic Panel 03/22/18 03/22/18 Range/Units 00:58 06:12 Sodium 142 141 (137-145) mmol/L Potassium 3.8 3.7 (3.5-5.1) mmol/L Chloride 107 105 (98-107) mmol/L Carbon Dioxide 24 26 (22-30) mmol/L BUN 11 8 L (9-20) mg/dL Creatinine 0.68 0.58 L (0.66-1.25) mg/dL Glucose 130 H 131 H (74-99) mg/dL Calcium 9.0 8.2 L (8.4-10.2) mg/dL AST 72 H 71 H (17-59) U/L ALT 46 41 (21-72) U/L Alkaline Phosphatase 110 100 (38-126) U/L Total Protein 7.8 7.5 (6.3-8.2) g/dL Albumin 3.8 3.5 (3.5-5.0) g/dL Current Medications Generic Name Dose Route Start Last Admin Trade Name Freq PRN Reason Stop Dose Admin Aspirin 325 mg 03/23/18 09:00 Aspirin PO DAILY TANYA Cholecalciferol 1,000 unit 03/22/18 09:00 03/22/18 09:27 Vitamin D3 PO 1,000 unit DAILY TANYA Administration Clonidine 0.1 mg 03/22/18 11:15 03/22/18 11:18 Catapres PO 0.1 mg BID TANYA Administration Magnesium Sulfate/Dextrose 1 100 mls @ 100 mls/hr 03/22/18 11:00 03/22/18 11: 18 gm/ IV Solution IVPB 03/22/18 13:59 100 mls/hr Q1H TANYA Administration Lorazepam 1 mg 03/22/18 03:19 Ativan IV Q2HR PRN CIWA 8 or 9 Lorazepam 1 mg 03/22/18 03:19 03/22/18 10:47 Ativan IV 1 mg Q1HR PRN Administration CIWA 10 to 15 Lorazepam 2 mg 03/22/18 03:19 Ativan IV 03/24/18 03:19 Q10M PRN CIWA 16 or higher Magnesium Oxide 400 mg 03/22/18 09:00 03/22/18 09:27 Mag-Ox PO 400 mg BID TANYA Administration Metformin HCl 1,000 mg 03/22/18 08:00 03/22/18 09:39 Glucophage PO Not Given BID-W/MEALS [facility] Miscellaneous Information 1 each 03/22/18 10:32 Magnesium Per Protocol MISCELLANE DAILY PRN Per Protocol Protocol Nadolol 20 mg 03/22/18 09:00 03/22/18 09:27 Corgard PO 20 mg DAILY TANYA Administration Nitroglycerin 0.4 mg 03/22/18 03:20 Nitrostat SUBLINGUAL Q5M PRN Chest Pain Pantoprazole Sodium 40 mg 03/23/18 07:30 Protonix PO AC-BRKFST [facility] Thiamine HCl 100 mg 03/22/18 17:00 Vitamin B-1 PO BID@1200,1700 TANYA Intake and Output 03/21/18 03/22/18 03/22/18 22:59 06:59 14:59 Other: Weight 74.389 kg 03/22/18 06:12 03/22/18 06:12 EKG Interpretations (text) Sinus tachycardia Assessment and Plan Assessment: #1 sinus tachycardia #2 hypertension #3 alcohol abuse with evidence of withdrawal #4 history of esophageal varices and previous GI bleed, hemoglobin stable #5 hypomagnesemia Plan: From cardiology's perspective, we will replace magnesium. We will start the patient on clonidine for blood pressure which may also help with tachycardia and withdrawal symptoms. This will be a short term treatment. Discussed with primary need for appropriate treatment of withdrawal. Patient is currently on CIWA protocol. Jaw pain likely secondary to dental issues. No further cardiac workup at this time. ASSISTANT PROFESSOR OF BIOCHEMISTRY note has been reviewed, I agree with a documented findings and plan of care. Patient was seen and examined.
[2018-03-22] MEDS: HYDROcodone/APAP 5-325MG 1 EACH TAB PO PRN (13:13)
[2018-03-22 13:44] LABS: Creatine Kinase MB 0.5 ng/mL (0.0-2.4); Troponin I 0.014 ng/mL (0.000-0.034)
[2018-03-22 14:24] VITALS: BMI 27.3
[2018-03-22 16:59] LABS: Glucose,Whole Blood 125 mg/dL (75-99)
[2018-03-22] MEDS: THIAMINE 100 MG TAB PO SCH (17:43)
[2018-03-22] MEDS: ACETAMINOPHEN TAB 325 MG TAB PO PRN (19:54)
[2018-03-22 20:43] LABS: Glucose,Whole Blood 136 mg/dL (75-99)
[2018-03-23] MEDS: ACETAMINOPHEN TAB 325 MG TAB PO PRN ×3 (02:45→23:45)
[2018-03-23] MEDS: LORazepam 2 MG/ML INJ IV PRN ×5 (02:48→23:44)
[2018-03-23 05:51] LABS: Glucose,Whole Blood 124 mg/dL (75-99)
[2018-03-23] MEDS: HYDROcodone/APAP 5-325MG 1 EACH TAB PO PRN ×3 (05:53→20:04)
[2018-03-23] MEDS: metFORMIN 500 MG TAB PO SCH ×2 (05:54→17:49)
[2018-03-23] MEDS: PANTOPRAZOLE 40 MG TABLET PO SCH (05:54)
[2018-03-23 06:39] LABS: Anisocytosis Slight; Basophils % (A) 0 %; Eosinophils % (A) 1 %; HCT 37.2 % (39.0-53.0); HGB 12.4 gm/dL (13.0-17.5); Lymphocytes # (A) 0.9 k/uL (1.0-4.8); Lymphocytes % (A) 21 %; MCH 29.6 pg (25.0-35.0); MCHC 33.3 g/dL (31.0-37.0); MCV 88.9 fL (80.0-100.0); Mean Platelet Volume 7.6; Monocytes # (A) 0.3 k/uL (0-1.0); Monocytes % (A) 8 %; Neutrophils # (A) 2.9 k/uL (1.3-7.7); Neutrophils % (A) 69 %; RBC 4.18 m/uL (4.30-5.90); RDW 16.7 % (11.5-15.5); WBC 4.1 k/uL (3.8-10.6)
[2018-03-23 06:55] LABS: ALT 38 U/L (21-72); AST 67 U/L (17-59); Albumin 3.4 g/dL (3.5-5.0); Alkaline Phosphatase 108 U/L (38-126); Anion Gap 8 mmol/L; Blood Urea Nitrogen 14 mg/dL (9-20); Carbon Dioxide 28 mmol/L (22-30); Chloride 98 mmol/L (98-107); Cholesterol 214 mg/dL (<200); Glucose 124 mg/dL (74-99); HDL Cholesterol 54 mg/dL (40-60); LDL Cholesterol,Calculated 133 mg/dL (0-99); Magnesium 1.8 mg/dL (1.6-2.3); Potassium 3.5 mmol/L (3.5-5.1); Sodium 134 mmol/L (137-145); Total Protein 7.2 g/dL (6.3-8.2); Triglycerides 135 mg/dL (<150)
[2018-03-23 07:08] LABS: Platelet Count 89 k/uL (150-450)
[2018-03-23] MEDS: CHOLECALCIFEROL 1,000 UNIT TAB PO SCH (08:20)
[2018-03-23] MEDS: THIAMINE 100 MG TAB PO SCH ×2 (08:20→16:55)
[2018-03-23] MEDS: MAGNESIUM OXIDE 400 MG TAB PO SCH ×2 (08:20→20:00)
[2018-03-23] MEDS: ASPIRIN 325 MG TAB PO SCH (08:21)
[2018-03-23] MEDS: cloNIDine HCL 0.1 MG TAB PO SCH ×2 (08:21→20:00)
[2018-03-23] MEDS: NADOLOL 20 MG TAB PO SCH (08:21)
[2018-03-23] MEDS: PIPERACILLIN-TAZOBACTAM 3.375 GM in SODIUM CHLORIDE 0.9% 100 ML IVPB SCH ×3 (10:20→23:44)
--- NOTE | 2018-03-23 10:32 | P.PN ---
Subjective Progress Note Date: 03/23/18 This is a 62-year-old male patient of Dr. Phillips. Patient presented to emergency room with complaints of chest pain. EKG completed in route showing patient in SVT. She has known past medical history of atrial fibrillation, chest pain, COPD, CVA, diabetes mellitus, GERD, GI bleed, hyperlipidemia, essential hypertension, pneumonia, pulmonary embolism, esophageal varices and seizures. Patient also has known past EtOH history with chronic liver cirrhosis with secondary portal hypertension. Chest x-ray completed showing suggestion of small volume loss and left side with shift of heart left-sided without change compared to exam. No acute lung disease. D-dimer elevated at 0.84 CTA completed no evidence of pulmonary embolism. T4 compression fracture unchanged. Serum alcohol 129. Alcohol withdrawal protocal initiated per emergency room. Initial troponin negative. Second troponin 0.018. Lactic acid initial elevated at 4.2. repeat 2.1. Cardiology services have been consulted. At this time patient is complaining of some chest discomfort. Patient also complaining of nausea and vomiting. Patient denies any urinary burning or frequency Patient complaining of left upper tooth pain with headache. Patient does have some soft facial swelling along the left upper lip. Poor dental hygiene. The tooth is tender with palpation and broken gumline is irritated poor dental hygiene. Patient reports that the tooth does need to be pulled. Start patient on Rocephin 1 g daily. Continue with the [place] for pain control. 03/23/2018 patient is currently sitting up comfortably in the chair. Patient is alert and oriented. Patient did have temps throughout night as high as 102.5. Will consult Director Furniture at this time for further evaluation of tooth infection with facial swelling. Discussed case with cardiology services patient found to have been in sinus tachycardia not SVT. At the time patient denies chest pain or shortness of breath. Patient denies nausea vomiting or diarrhea. Patient denies any urinary burning or frequency. Objective - Vital Signs Vital signs: Vital Signs Temp 99.0 F 03/23/18 08:00 Pulse 100 03/23/18 08:00 Resp 18 03/23/18 08:00 BP 155/90 03/23/18 08:00 Pulse Ox 96 03/23/18 08:00 Intake & Output 03/22/18 03/23/18 03/23/18 18:59 06:59 18:59 Intake Total 300 240 Output Total 975 Balance 300 -975 240 Weight 74.389 kg 75.3 kg Intake: Intake, IV Titration 300 Amount Magnesium Sulfate-D5w Pmx 300 1 gm In Dextrose/Water 1 100ml.bag @ 100 mls/hr IVPB Q1H TANYA Rx#: [id number] Oral 240 Output: Urine 975 Other: # Voids 2 2 - Exam Head normocephalic. Left facial swelling. Left upper teeth decay noted Neck supple Lungs clear to auscultation bilaterally no wheezing or crackles Heart regular rate and rhythm S1-S2, no rub or gallop Abdomen is soft nontender nondistended positive bowel sounds no hepatosplenomegaly Extremities no edema Neuro alert and orientated to 3 - Labs CBC & Chem 7: 03/23/18 05:44 03/23/18 05:44 Labs: Abnormal Lab Results - Last 24 Hours (Table) 03/22/18 03/22/18 03/22/18 Range/Units 11:23 16:38 20:36 RBC (4.30-5.90) m/uL Hgb (13.0-17.5) gm/dL Hct (39.0-53.0) % RDW (11.5-15.5) % Plt Count (150-450) k/uL Lymphocytes # (1.0-4.8) k/uL Sodium (137-145) mmol/L Glucose (74-99) mg/dL POC Glucose (mg/dL) 151 H 125 H 136 H (75-99) mg/dL AST (17-59) U/L Albumin (3.5-5.0) g/dL Cholesterol (<200) mg/dL LDL Cholesterol, Calc (0-99) mg/dL 03/23/18 03/23/18 03/23/18 Range/Units 05:44 05:44 05:50 RBC 4.18 L (4.30-5.90) m/uL Hgb 12.4 L (13.0-17.5) gm/dL Hct 37.2 L (39.0-53.0) % RDW 16.7 H (11.5-15.5) % Plt Count 89 L (150-450) k/uL Lymphocytes # 0.9 L (1.0-4.8) k/uL Sodium 134 L (137-145) mmol/L Glucose 124 H (74-99) mg/dL POC Glucose (mg/dL) 124 H (75-99) mg/dL AST 67 H (17-59) U/L Albumin 3.4 L (3.5-5.0) g/dL Cholesterol 214 H (<200) mg/dL LDL Cholesterol, Calc 133 H (0-99) mg/dL Microbiology - Last 24 Hours (Table) 03/22/18 22:00 Urine Culture - Preliminary Urine,Voided 03/22/18 00:58 Blood Culture - Preliminary Blood No Growth after 24 hours Assessment and Plan Assessment: 1. Chest pain. EKG completed showing patient in supraventricular tachycardia. This x-ray completed showing suggestion of some volume loss in the left side with shift of the heart left side without change compared to old exam. No acute lung disease. D-dimer 0.84. CTA completed showing no pulmonary embolism. T4 compression fracture unchanged. Cardiology services have been consulted. Initial troponin negative. Second troponin 0.018. Discussed with cardiology services. Patient was in sinus tachycardia and SVT. Patient started on clonidine for blood pressure control. No further cardiac workup at this time. 2. History of alcohol dependence. Patient reports he has been drinking for one week. Serum alcohol 128 upon arrival. CIWA protocal initiated. Continue thiamine 3. History of paroxysmal atrial fibrillation not on anticoagulation due to history of esophageal varices 4. Diabetes mellitus type 2. maintained on metformin 5. History of esophageal varices per EGD and ligation on 10/21/2017 6. History of pulmonary embolism 7. Iron deficiency anemia 8. History of TIA 9. Essential hypertension. Patient maintained on nadolol. 10. History of COPD. No exacerbation at this time 11. Chronic liver cirrhosis with secondary portal hypertension 12. Vitamin D deficiency 13. History of thrombocytopenia. Platelet level 89 14. Elevated lactic acid. Initial lactic acid 4.2. Repeat 2.1 blood culture has been ordered. Blood culture currently negative 15. Dental will left upper tooth infection with left facial swelling noted. Patient also having temps of 100.5. Patient currently on Zosyn for IV antibiotics. Dr. Felix consulted for further evaluation of dental issue. DVT prophylaxis SCDs due to thrombocytopenia. GI prophylaxis Protonix I performed an examination of the patient and discussed their management with the Nurse Practitioner. I have reviewed the Nurse Practitioner's notes and agree with the documented findings and plan of care
--- NOTE | 2018-03-23 11:04 | ECHOF ---
Referral Reason:CP, SVT MEASUREMENTS -------- HEIGHT: 165.1 cm WEIGHT: 75.3 kg BP: 149/91 RVIDd: 2.3 cm (< 3.3) IVSd: 1.1 cm (0.6 - 1.1) LVIDd: 4.6 cm (3.9 - 5.3) LVPWd: 1.2 cm (0.6 - 1.1) IVSs: 1.3 cm LVIDs: 3.5 cm LVPWs: 1.7 cm LA Diam: 3.1 cm (2.7 - 3.8) LAESV Index (A-L): 27.12 ml/m Ao Diam: 3.5 cm (2.0 - 3.7) AV Cusp: 2.1 cm (1.5 - 2.6) LA Diam: 3.5 cm (2.7 - 3.8) MV EXCURSION: 17.007 mm (> 18.000) MV EF SLOPE: 150 mm/s (70 - 150) EPSS: 0.3 cm MV E Riki: 0.37 m/s MV DecT: 227 ms MV A Riki: 0.83 m/s MV E/A Ratio: 0.44 RAP: 5.00 mmHg RVSP: 14.84 mmHg FINDINGS -------- Sinus rhythm. This was a technically adequate study. The left ventricular size is normal. There is mild concentric left ventricular hypertrophy. Overa ll left ventricular systolic function is normal with, an EF between 55 - 60 %. The right ventricle is normal in size. The left atrial size is normal. The right atrial size is normal. The aortic valve is trileaflet, and appears structurally normal. No aortic stenosis or regurgitation. Mild mitral annular calcification present. Mild mitral regurgitation is present. Mild tricuspid regurgitation present. There is no evidence of pulmonary hypertension. The right v entricular systolic pressure, as measured by Doppler, is 14.84mmHg. There is no pulmonic regurgitation present. The aortic root size is normal. There is no pericardial effusion. CONCLUSIONS -------- 1. The left ventricular size is normal. 2. There is mild concentric left ventricular hypertrophy. 3. Overall left ventricular systolic function is normal with, an EF between 55 - 60 %. 4. The right ventricle is normal in size. 5. The left atrial size is normal. 6. The right atrial size is normal. 7. The aortic valve is trileaflet, and appears structurally normal. No aortic stenosis or regurgitati on. 8. Mild mitral annular calcification present. 9. Mild mitral regurgitation is present. 10. Mild tricuspid regurgitation present. 11. There is no evidence of pulmonary hypertension. 12. The right ventricular systolic pressure, as measured by Doppler, is 14.84mmHg. 13. There is no pulmonic regurgitation present. 14. The aortic root size is normal. 15. There is no pericardial effusion. CENTER ADMINISTRATOR: Dot Carter RDCS
[2018-03-23 11:10] LABS: Glucose,Whole Blood 138 mg/dL (75-99)
--- NOTE | 2018-03-23 12:36 | P.PN ---
Subjective Progress Note Date: 03/23/18 This is a pleasant 62-year-old gentleman with history of dyslipidemia, hypertension, diabetes, esophageal varices with ligation by Dr. Esteban in October, chronic alcohol abuse, alcoholic cirrhosis with portal hypertension and history of GI bleeding. Patient underwent dobutamine stress echo earlier this year that was negative. Presented to the hospital on this occasion with complaints of shortness of breath and feeling his heart racing. Also complaining of some left facial pain and headache. EKG on admission was read as SVT and patient was admitted with the same. Upon further review, EKG actually shows sinus rhythm. No evidence of SVT. Patient has had no chest discomfort, only complaint of feeling his heart beating fast. Complains of left-sided facial pain and headache, apparently has a bad tooth. Patient does have some evidence of left face swelling and redness. Laboratory values show a hemoglobin of 12.5 , potassium 3.7, BUN of 8, creatinine 0.58 and a magnesium of 1.0. According to the patient he last drank a few days ago serum alcohol level on admission was 129. Troponins were negative 2 and NT proBNP was 37. A cardiogram was reviewed and shows normal LV systolic function with an ejection fraction between 55-60%, mild MR and mild TR. The patient has been on CIWA vertical and started on clonidine yesterday. Heart rate and withdrawal symptoms have improved. He needs in this morning is up to 1.8 after supplementation. He is overall feeling quite a bit better except for some sinus pain. Objective - Vital Signs Vital signs: Vital Signs Temp 99.9 F H 03/23/18 12:00 Pulse 98 03/23/18 12:00 Resp 18 03/23/18 12:00 BP 124/77 03/23/18 12:00 Pulse Ox 94 L 03/23/18 12:00 Intake & Output 03/22/18 03/23/18 03/23/18 18:59 06:59 18:59 Intake Total 300 240 Output Total 975 1000 Balance 300 -975 -760 Weight 74.389 kg 75.3 kg Intake: Intake, IV Titration 300 Amount Magnesium Sulfate-D5w Pmx 300 1 gm In Dextrose/Water 1 100ml.bag @ 100 mls/hr IVPB Q1H TANYA Rx#: [id number] Oral 240 Output: Urine 975 1000 Other: # Voids 2 2 - Exam PHYSICAL EXAMINATION: HEENT: Head is atraumatic, normocephalic. Pupils equal, round. Neck is supple. There is no elevated jugular venous pressure. HEART EXAMINATION: Heart sounds regular, S1 and S2 normal. No murmur or gallop heard. CHEST EXAMINATION: Lungs are clear to auscultation and precussion. No chest wall tenderness is noted on palpation or with deep breathing. ABDOMEN: Soft, nontender. Bowel sounds are heard. No organomegaly noted. EXTREMITIES: 2+ peripheral pulses with no evidence of peripheral edema and no calf tenderness noted. NEUROLOGIC patient is awake, alert and oriented x3. - Labs CBC & Chem 7: 03/23/18 05:44 03/23/18 05:44 Labs: Abnormal Lab Results - Last 24 Hours (Table) 03/22/18 03/22/18 03/23/18 Range/Units 16:38 20:36 05:44 RBC (4.30-5.90) m/uL Hgb (13.0-17.5) gm/dL Hct (39.0-53.0) % RDW (11.5-15.5) % Plt Count (150-450) k/uL Lymphocytes # (1.0-4.8) k/uL Sodium 134 L (137-145) mmol/L Glucose 124 H (74-99) mg/dL POC Glucose (mg/dL) 125 H 136 H (75-99) mg/dL AST 67 H (17-59) U/L Albumin 3.4 L (3.5-5.0) g/dL Cholesterol 214 H (<200) mg/dL LDL Cholesterol, Calc 133 H (0-99) mg/dL 03/23/18 03/23/18 03/23/18 Range/Units 05:44 05:50 11:08 RBC 4.18 L (4.30-5.90) m/uL Hgb 12.4 L (13.0-17.5) gm/dL Hct 37.2 L (39.0-53.0) % RDW 16.7 H (11.5-15.5) % Plt Count 89 L (150-450) k/uL Lymphocytes # 0.9 L (1.0-4.8) k/uL Sodium (137-145) mmol/L Glucose (74-99) mg/dL POC Glucose (mg/dL) 124 H 138 H (75-99) mg/dL AST (17-59) U/L Albumin (3.5-5.0) g/dL Cholesterol (<200) mg/dL LDL Cholesterol, Calc (0-99) mg/dL Microbiology - Last 24 Hours (Table) 03/22/18 22:00 Urine Culture - Preliminary Urine,Voided 03/22/18 00:58 Blood Culture - Preliminary Blood No Growth after 24 hours Assessment and Plan Assessment: #1 sinus tachycardia #2 hypertension #3 alcohol abuse with evidence of withdrawal #4 history of esophageal varices and previous GI bleed, hemoglobin stable #5 hypomagnesemia, improved Plan: From cardiology's perspective, we recommend use of clonidine only for short term. At this time, no need for further cardiac workup. We will follow the patient on an as-needed basis. Stated to contact us with questions. LIQUEFACTION SUPERVISOR note has been reviewed, I agree with a documented findings and plan of care. Patient was seen and examined.
[2018-03-23 16:43] LABS: Glucose,Whole Blood 121 mg/dL (75-99)
--- NOTE | 2018-03-23 16:43 | P.GSCN ---
History of Present Illness Consult date: 03/23/18 Reason for Consult: Dental pain Requesting physician: Charlette Finney History of present illness: 62-year-old gentleman history of mouth pain approximately 4 weeks in duration. Patient recently attempted to quit alcohol and recently admitted for chest pain rapid heartbeat. Review of Systems Patient's arousable he appears to be in withdrawal. Restless difficulty focusing but alert and oriented 3 Past Medical History Past Medical History: Atrial Fibrillation, Chest Pain / Angina, COPD, CVA/TIA, Diabetes Mellitus, GERD/Reflux, GI Bleed, Hearing Disorder / Deafness, Hyperlipidemia, Hypertension, Pneumonia, Pulmonary Embolus (PE) Additional Past Medical History / Comment(s): Alcoholism, chronic alcoholic cirrhosis with portal hypertension, GI bleeding-upper and lower, esophageal varices, diverticulosis, NIDDM type II, previous history of childhood seizure which he thought he outgrew-possible seizure 11/2017, pt states sometimes he shakes and feels confused, L lung pulmonary embolism, chronic lower extremity ankle edema, previous history of septicemia, cervical disc disease with chronic back pain, degenerative arthritis involving the lower back, scoliosis, tinnitus bilateral ears/hears popping and cracking in L ear, vitamin D deficiency, iron anemia, thrombocytopenia, hypomagnesemia, intermittent diarrhea. History of Any Multi-Drug Resistant Organisms: None Reported Past Surgical History: Appendectomy, Cholecystectomy Additional Past Surgical History / Comment(s): 07/20/17 EGD, 03/21/17 EGD/ colonoscopy, other colonoscopies. Past Anesthesia/Blood Transfusion Reactions: Previous Problems w/ Anesthesia Additional Past Anesthesia/Blood Transfusion Reaction / Comm: after appendix removed sob Smoking Status: Never smoker - Past Family History Mother Family Medical History: COPD, CVA/TIA, Dementia Additional Family Medical History / Comment(s): from a stroke Father Family Medical History: Pneumonia Additional Family Medical History / Comment(s): Father of pneumonia when he was close to 80 yrs old. Medications and Allergies Home Medications Medication Instructions Recorded Confirmed Type metFORMIN HCL 1,000 mg PO BID 09/23/17 03/22/18 History Nadolol [Corgard] 20 mg PO DAILY #30 tab 11/11/17 03/22/18 Rx Acetaminophen [Tylenol] 650 mg PO Q4H PRN 08/23/18 11/06/18 History Cholecalciferol [Vitamin D3] 1,000 unit PO DAILY 01/06/18 03/22/18 History Allergies Allergy/AdvReac Type Severity Reaction Status Date / Time adhesive tape Allergy Rash/Hives Verified 03/22/18 08:07 egg AdvReac Nausea & Verified 03/22/18 08:07 Vomiting lisinopril AdvReac EYES Verified 03/22/18 08:07 BURN&ITCH/WEAKNESS tomato AdvReac Nausea & Verified 03/22/18 08:07 Vomiting & Diarrhea Surgical - Exam Vital Signs Temp Pulse Resp BP Pulse Ox 98.3 F 146 H 20 167/114 95 03/22/18 00:38 03/22/18 00:38 03/22/18 00:38 03/22/18 00:38 03/22/18 00:38 Limited physical exam includes slight redness and slight swelling of the left canine space. This is adjacent to a fractured and grossly carious tooth #11 which is mildly tender. The patient does report some tingling of the left lateral aspect of the naris which is consistent with a canine space infection. Patient's able open his mouth completely no airway distress or trouble swallowing. - Eyes PERRL, normal ocular movement Results Attempted to order panoramic x-ray but he hospital no longer has any Panoramic x -ray machine. - Labs 03/23/18 05:44 03/23/18 05:44 Abnormal Lab Results - Last 24 Hours (Table) 03/22/18 03/22/18 03/23/18 Range/Units 16:38 20:36 05:44 RBC (4.30-5.90) m/uL Hgb (13.0-17.5) gm/dL Hct (39.0-53.0) % RDW (11.5-15.5) % Plt Count (150-450) k/uL Lymphocytes # (1.0-4.8) k/uL Sodium 134 L (137-145) mmol/L Glucose 124 H (74-99) mg/dL POC Glucose (mg/dL) 125 H 136 H (75-99) mg/dL AST 67 H (17-59) U/L Albumin 3.4 L (3.5-5.0) g/dL Cholesterol 214 H (<200) mg/dL LDL Cholesterol, Calc 133 H (0-99) mg/dL 03/23/18 03/23/18 03/23/18 Range/Units 05:44 05:50 11:08 RBC 4.18 L (4.30-5.90) m/uL Hgb 12.4 L (13.0-17.5) gm/dL Hct 37.2 L (39.0-53.0) % RDW 16.7 H (11.5-15.5) % Plt Count 89 L (150-450) k/uL Lymphocytes # 0.9 L (1.0-4.8) k/uL Sodium (137-145) mmol/L Glucose (74-99) mg/dL POC Glucose (mg/dL) 124 H 138 H (75-99) mg/dL AST (17-59) U/L Albumin (3.5-5.0) g/dL Cholesterol (<200) mg/dL LDL Cholesterol, Calc (0-99) mg/dL Microbiology - Last 24 Hours (Table) 03/22/18 22:00 Urine Culture - Preliminary Urine,Voided 03/22/18 00:58 Blood Culture - Preliminary Blood No Growth after 24 hours Diabetes panel 03/23/18 Range/Units 05:44 Sodium 134 L (137-145) mmol/L Potassium 3.5 (3.5-5.1) mmol/L Chloride 98 (98-107) mmol/L Carbon Dioxide 28 (22-30) mmol/L BUN 14 (9-20) mg/dL Creatinine 0.89 (0.66-1.25) mg/dL Glucose 124 H (74-99) mg/dL Calcium 9.0 (8.4-10.2) mg/dL AST 67 H (17-59) U/L ALT 38 (21-72) U/L Alkaline Phosphatase 108 (38-126) U/L Total Protein 7.2 (6.3-8.2) g/dL Albumin 3.4 L (3.5-5.0) g/dL Triglycerides 135 (<150) mg/dL HDL Cholesterol 54 (40-60) mg/dL Calcium panel 03/23/18 Range/Units 05:44 Calcium 9.0 (8.4-10.2) mg/dL Albumin 3.4 L (3.5-5.0) g/dL Pituitary panel 03/23/18 Range/Units 05:44 Sodium 134 L (137-145) mmol/L Potassium 3.5 (3.5-5.1) mmol/L Chloride 98 (98-107) mmol/L Carbon Dioxide 28 (22-30) mmol/L BUN 14 (9-20) mg/dL Creatinine 0.89 (0.66-1.25) mg/dL Glucose 124 H (74-99) mg/dL Calcium 9.0 (8.4-10.2) mg/dL Adrenal panel 03/23/18 Range/Units 05:44 Sodium 134 L (137-145) mmol/L Potassium 3.5 (3.5-5.1) mmol/L Chloride 98 (98-107) mmol/L Carbon Dioxide 28 (22-30) mmol/L BUN 14 (9-20) mg/dL Creatinine 0.89 (0.66-1.25) mg/dL Glucose 124 H (74-99) mg/dL Calcium 9.0 (8.4-10.2) mg/dL Total Bilirubin 1.0 (0.2-1.3) mg/dL AST 67 H (17-59) U/L ALT 38 (21-72) U/L Alkaline Phosphatase 108 (38-126) U/L Total Protein 7.2 (6.3-8.2) g/dL Albumin 3.4 L (3.5-5.0) g/dL Assessment and Plan Assessment: Left-sided canine space infection which appears to be mild in nature. Plan: Current antibiotic therapy as appropriate. Due to evidence of acute withdrawal symptoms and the lack of severity of his dental infection at this time emergent surgery is not recommended. Instead continue antibiotic therapy monitor for improvement and have the tooth extracted as an outpatient. Discussed plan for outpatient extraction with patient and he had is agreeable to a local anesthetic in my dental clinic as soon as he is discharged. Time with Patient: Less than 30 (Please [facility] with me in one week or less depending on date of discharge)
[2018-03-23 20:42] LABS: Glucose,Whole Blood 120 mg/dL (75-99)
[2018-03-24 05:52] LABS: Glucose,Whole Blood 113 mg/dL (75-99)
[2018-03-24] MEDS: metFORMIN 500 MG TAB PO SCH ×2 (06:10→17:21)
[2018-03-24] MEDS: PANTOPRAZOLE 40 MG TABLET PO SCH (06:10)
[2018-03-24 06:21] LABS: Anisocytosis Slight; Basophils % (A) 0 %; Eosinophils % (A) 1 %; HCT 34.2 % (39.0-53.0); HGB 11.1 gm/dL (13.0-17.5); Lymphocytes # (A) 0.9 k/uL (1.0-4.8); Lymphocytes % (A) 20 %; MCH 28.8 pg (25.0-35.0); MCHC 32.4 g/dL (31.0-37.0); Mean Platelet Volume 7.6; Monocytes # (A) 0.2 k/uL (0-1.0); Monocytes % (A) 5 %; Neutrophils # (A) 3.4 k/uL (1.3-7.7); Neutrophils % (A) 74 %; RBC 3.84 m/uL (4.30-5.90); RDW 16.8 % (11.5-15.5); WBC 4.7 k/uL (3.8-10.6)
[2018-03-24 06:32] LABS: Albumin 3.1 g/dL (3.5-5.0); Calcium 8.6 mg/dL (8.4-10.2); Potassium 3.5 mmol/L (3.5-5.1); Total Protein 6.9 g/dL (6.3-8.2)
[2018-03-24 06:38] LABS: Platelet Count 74 k/uL (150-450)
[2018-03-24] MEDS: ACETAMINOPHEN TAB 325 MG TAB PO PRN ×2 (08:15→20:03)
[2018-03-24] MEDS: PIPERACILLIN-TAZOBACTAM 3.375 GM in SODIUM CHLORIDE 0.9% 100 ML IVPB SCH ×2 (08:15→16:12)
[2018-03-24] MEDS: ASPIRIN 325 MG TAB PO SCH (08:16)
[2018-03-24] MEDS: MAGNESIUM OXIDE 400 MG TAB PO SCH ×2 (08:16→20:03)
[2018-03-24] MEDS: THIAMINE 100 MG TAB PO SCH ×2 (08:16→17:21)
[2018-03-24] MEDS: NADOLOL 20 MG TAB PO SCH (08:16)
[2018-03-24] MEDS: cloNIDine HCL 0.1 MG TAB PO SCH ×2 (08:16→20:03)
[2018-03-24] MEDS: CHOLECALCIFEROL 1,000 UNIT TAB PO SCH (08:18)
--- NOTE | 2018-03-24 09:59 | P.PN ---
Subjective Progress Note Date: 03/24/18 This is a 62-year-old male patient of Dr. Phillips. Patient presented to emergency room with complaints of chest pain. EKG completed in route showing patient in SVT. She has known past medical history of atrial fibrillation, chest pain, COPD, CVA, diabetes mellitus, GERD, GI bleed, hyperlipidemia, essential hypertension, pneumonia, pulmonary embolism, esophageal varices and seizures. Patient also has known past EtOH history with chronic liver cirrhosis with secondary portal hypertension. Chest x-ray completed showing suggestion of small volume loss and left side with shift of heart left-sided without change compared to exam. No acute lung disease. D-dimer elevated at 0.84 CTA completed no evidence of pulmonary embolism. T4 compression fracture unchanged. Serum alcohol 129. Alcohol withdrawal protocal initiated per emergency room. Initial troponin negative. Second troponin 0.018. Lactic acid initial elevated at 4.2. repeat 2.1. Cardiology services have been consulted. At this time patient is complaining of some chest discomfort. Patient also complaining of nausea and vomiting. Patient denies any urinary burning or frequency Patient complaining of left upper tooth pain with headache. Patient does have some soft facial swelling along the left upper lip. Poor dental hygiene. The tooth is tender with palpation and broken gumline is irritated poor dental hygiene. Patient reports that the tooth does need to be pulled. Start patient on Rocephin 1 g daily. Continue with the [place] for pain control. 03/23/2018 patient is currently sitting up comfortably in the chair. Patient is alert and oriented. Patient did have temps throughout night as high as 102.5. Will consult Automatic Beading Lathe Operator at this time for further evaluation of tooth infection with facial swelling. Discussed case with cardiology services patient found to have been in sinus tachycardia not SVT. At the time patient denies chest pain or shortness of breath. Patient denies nausea vomiting or diarrhea. Patient denies any urinary burning or frequency. On 03/24/2018 patient is currently resting in bed. Patient is alert and oriented. Patient still having temps at 101.1. This time patient denies cough patient denies nasal congestion. Patient denies chest pain or shortness breath. Patient denies nausea vomiting or diarrhea. Patient denies any urinary burning or frequency Objective - Vital Signs Vital signs: Vital Signs Temp 101.1 F H 03/24/18 08:00 Pulse 101 H 03/24/18 08:00 Resp 16 03/24/18 08:00 BP 139/93 03/24/18 08:00 Pulse Ox 94 L 03/24/18 08:00 Intake & Output 03/23/18 03/24/18 03/24/18 18:59 06:59 18:59 Intake Total 638 700 360 Output Total 1000 225 400 Balance -362 475 -40 Weight 76.8 kg Intake: Intake, IV Titration 100 Amount Piperacillin-Tazobactam 3 100 .375 gm In Sodium Chloride 0.9% 100 ml @ 25 mls/hr IVPB Q8HR [facility] Rx# :[id number] Oral 638 600 360 Output: Urine 1000 225 400 - Exam Head normocephalic. Left facial swelling. Left upper teeth decay noted Neck supple Lungs clear to auscultation bilaterally no wheezing or crackles Heart regular rate and rhythm S1-S2, no rub or gallop Abdomen is soft nontender nondistended positive bowel sounds no hepatosplenomegaly Extremities no edema Neuro alert and orientated to 3 - Labs CBC & Chem 7: 03/24/18 05:46 03/24/18 05:46 Labs: Abnormal Lab Results - Last 24 Hours (Table) 03/23/18 03/23/18 03/23/18 Range/Units 11:08 16:42 20:40 RBC (4.30-5.90) m/uL Hgb (13.0-17.5) gm/dL Hct (39.0-53.0) % RDW (11.5-15.5) % Plt Count (150-450) k/uL Lymphocytes # (1.0-4.8) k/uL Sodium (137-145) mmol/L Glucose (74-99) mg/dL POC Glucose (mg/dL) 138 H 121 H 120 H (75-99) mg/dL Albumin (3.5-5.0) g/dL 03/24/18 03/24/18 03/24/18 Range/Units 05:46 05:46 05:50 RBC 3.84 L (4.30-5.90) m/uL Hgb 11.1 L (13.0-17.5) gm/dL Hct 34.2 L (39.0-53.0) % RDW 16.8 H (11.5-15.5) % Plt Count 74 L (150-450) k/uL Lymphocytes # 0.9 L (1.0-4.8) k/uL Sodium 133 L (137-145) mmol/L Glucose 108 H (74-99) mg/dL POC Glucose (mg/dL) 113 H (75-99) mg/dL Albumin 3.1 L (3.5-5.0) g/dL Microbiology - Last 24 Hours (Table) 03/22/18 22:00 Urine Culture - Final Urine,Voided 03/22/18 00:58 Blood Culture - Preliminary Blood No Growth after 48 hours Assessment and Plan Assessment: 1. Chest pain. EKG completed showing patient in supraventricular tachycardia. This x-ray completed showing suggestion of some volume loss in the left side with shift of the heart left side without change compared to old exam. No acute lung disease. D-dimer 0.84. CTA completed showing no pulmonary embolism. T4 compression fracture unchanged. Cardiology services have been consulted. Initial troponin negative. Second troponin 0.018. Discussed with cardiology services. Patient was in sinus tachycardia and SVT. Patient started on clonidine for blood pressure control. No further cardiac workup at this time. 2. History of alcohol dependence. Patient reports he has been drinking for one week. Serum alcohol 128 upon arrival. CIWA protocal initiated. Continue thiamine 3. History of paroxysmal atrial fibrillation not on anticoagulation due to history of esophageal varices 4. Diabetes mellitus type 2. maintained on metformin 5. History of esophageal varices per EGD and ligation on 10/21/2017 6. History of pulmonary embolism 7. Iron deficiency anemia 8. History of TIA 9. Essential hypertension. Patient maintained on nadolol. 10. History of COPD. No exacerbation at this time 11. Chronic liver cirrhosis with secondary portal hypertension 12. Vitamin D deficiency 13. History of thrombocytopenia. Platelet level 74 14. Elevated lactic acid. Initial lactic acid 4.2. Repeat 2.1 blood culture has been ordered. Blood culture currently negative 15. Dental will left upper tooth infection with left facial swelling noted. Patient also having temps of 100.5. Patient currently on Zosyn for IV antibiotics. Per Dr. Fan continue current antibiotic therapy, emergency surgery is not recommended. Patient will need to the extraction as outpatient. DVT prophylaxis SCDs due to thrombocytopenia. GI prophylaxis Protonix Amylase and lipase labs have been ordered due to patient having nausea I performed an examination of the patient and discussed their management with the Nurse Practitioner. I have reviewed the Nurse Practitioner's notes and agree with the documented findings and plan of care
[2018-03-24 10:45] LABS: Amylase 45 U/L (30-110); Lipase 80 U/L (23-300)
[2018-03-24 11:51] LABS: Glucose,Whole Blood 103 mg/dL (75-99)
[2018-03-24 16:45] LABS: Glucose,Whole Blood 103 mg/dL (75-99)
[2018-03-24 20:55] LABS: Glucose,Whole Blood 103 mg/dL (75-99)
--- NOTE | 2018-03-24 23:26 | CONS ---
CONSULTATION DATE OF SERVICE: 03/24/2018. REASON FOR CONSULTATION: Fever, identify infection and antibiotic recommendation. HISTORY OF PRESENT ILLNESS: The patient is a 62-year-old male who was brought into the ER at [facility] on 03/22/2018 by the EMS for evaluation. The patient was not feeling well. The patient was complaining of some palpitations and chest discomfort. The patient did not have any fever on presentation to the hospital. The patient did have a chest x-ray that did not show any pneumonia. He did have a CT angiogram that was negative for PE. Also shows T4 compression fracture, unchanged, and some interstitial markings in the lower lung [place]. The patient subsequently did spike a fever of 102 degrees Fahrenheit and did have a fever of 102 yesterday and 118 degrees Fahrenheit this morning. The patient's white count is not elevated. His UA has been negative. The patient did have elevated alcohol serum level of 129 on presentation. The patient is currently being treated for DTs and also with SVT by his cardiology team. He was complaining of pain in his left upper teeth that had been getting bad for the last few weeks. Apparently the patient's NG tube needed to be removed. He did have some throbbing pain in the left upper jaw area, intensity about 5 to 6/10 with no radiation. Denies any difficulty swallowing. No nausea or vomiting. No abdominal pain and no diarrhea. The patient has been started on Zosyn. Infectious Disease was consulted for further recommendation of antibiotic therapy. REVIEW OF SYSTEMS: Positive points have been mentioned in HPI. The rest of the review of systems have been negative. PAST MEDICAL HISTORY: Atrial fibrillation, angina, COPD, CVA, TIA, diabetes mellitus, , hypertension, hyperlipidemia, PE, alcoholism. PAST SURGICAL HISTORY: Appendectomy, cholecystectomy, colonoscopy. SOCIAL HISTORY: Significant for drinking alcohol. No smoking or drug use. FAMILY HISTORY: Mother with history of dementia, COPD, also suffered from a stroke. Father history of pneumonia. ALLERGIES: ADHESIVE TAPE, LISINOPRIL, ADVIL. MEDICATIONS: The patient is currently on Tylenol, [place], Zosyn aspirin, vitamin D3, Catapres, Ativan, Mag oxide, Glucophage, Nadolol, , Protonix, vitamin B1. EXAMINATION: Blood pressure is 117/77 with a pulse of 80, temperature of 99.3, T-max is 101. He is 94% on room air. GENERAL DESCRIPTION: A middle-aged male lying in bed in no distress. No tachypnea or accessory muscle of respiration use. HEENT: Shows slight pallor. No scleral icterus. Examination of oral cavity did shows penetration and aspiration, especially in the area, with some inflammatory changes. NECK: Trachea central. No thyromegaly. LUNGS: Unlabored breathing with decreased breath sounds at the bases. No wheeze. HEART: S1, S2. Regular rate and rhythm. EXTREMITIES: No edema of the feet. SKIN: No rashes, no mass palpable. NEUROLOGIC: The patient is awake, alert, oriented x3. Mood and affect normal. LABS: Hemoglobin is 11.1, white count 4.7, BUN of 15, creatinine 1.05. Electrolytes have been normal. Liver enzymes are normal. Amylase and lipase normal. UA is negative. Influenza serology was negative. Alcohol level 129. DIAGNOSTIC IMPRESSION/PLAN: Patient admitted to the hospital with generalized not feeling well. The patient did have significantly elevated alcohol level and is currently going through delirium tremens. The fever was more likely related to DTs rather than infectious etiology. The patient did have evidence of infected left upper teeth, for which we will need to cover for the problem, ____ rick whole oral cavity both aerobes and anaerobes. PLAN: 1. Discontinue the Zosyn. 2. Start the patient on Unasyn 3 g every 6 hours. 3. The patient continues to improve, will be able to finish therapy with oral Augmentin. Thank you for this consultation, will follow this patient with you. MMODL / IJN: [id number] /
[2018-03-24] MEDS: AMPICILLIN-SULBACTAM 3 GM in SODIUM CHLORIDE 0.9% 100 ML IVPB SCH (23:45)
[2018-03-25 09:50] LABS: Anisocytosis Slight; Basophils % (A) 0 %; Eosinophils # (A) 0.1 k/uL (0-0.7); Eosinophils % (A) 3 %; HCT 35.8 % (39.0-53.0); HGB 11.3 gm/dL (13.0-17.5); Lymphocytes % (A) 26 %; MCH 28.7 pg (25.0-35.0); MCHC 31.6 g/dL (31.0-37.0); MCV 90.9 fL (80.0-100.0); Mean Platelet Volume 7.8; Monocytes # (A) 0.3 k/uL (0-1.0); Monocytes % (A) 8 %; Neutrophils # (A) 2.4 k/uL (1.3-7.7); Neutrophils % (A) 60 %; RBC 3.94 m/uL (4.30-5.90); RDW 16.9 % (11.5-15.5)
[2018-03-25 10:00] LABS: Platelet Count 92 k/uL (150-450)
[2018-03-25] MEDS: NADOLOL 20 MG TAB PO SCH (10:10)
[2018-03-25] MEDS: MAGNESIUM OXIDE 400 MG TAB PO SCH ×2 (10:10→20:17)
[2018-03-25] MEDS: AMPICILLIN-SULBACTAM 3 GM in SODIUM CHLORIDE 0.9% 100 ML IVPB SCH ×3 (10:10→23:27)
[2018-03-25] MEDS: PANTOPRAZOLE 40 MG TABLET PO SCH (10:10)
[2018-03-25] MEDS: cloNIDine HCL 0.1 MG TAB PO SCH ×2 (10:11→20:17)
[2018-03-25] MEDS: ASPIRIN 325 MG TAB PO SCH (10:11)
[2018-03-25] MEDS: CHOLECALCIFEROL 1,000 UNIT TAB PO SCH (10:11)
[2018-03-25] MEDS: THIAMINE 100 MG TAB PO SCH ×2 (10:11→17:01)
[2018-03-25] MEDS: metFORMIN 500 MG TAB PO SCH ×2 (10:11→17:01)
[2018-03-25 10:17] LABS: Albumin 3.2 g/dL (3.5-5.0); Calcium 8.6 mg/dL (8.4-10.2); Potassium 3.8 mmol/L (3.5-5.1); Total Bilirubin 0.5 mg/dL (0.2-1.3)
[2018-03-25] MEDS: HYDROcodone/APAP 5-325MG 1 EACH TAB PO PRN ×3 (10:17→22:14)
--- NOTE | 2018-03-25 15:46 | P.DS ---
Providers Date of admission: 03/22/18 03:21 Expected date of discharge: 03/25/18 Attending physician: Charlette Finney Consults: 03/22/18 03:21 Consult Physician Routine Consulting Provider: Niraj Drew Consult Reason/Comments: chest pain Do you want consulting provider notified?: Yes 03/23/18 10:22 Consult Physician Routine Consulting Provider: Bruno Sanches Consult Reason/Comments: tooth infection and facial swelling Do you want consulting provider notified?: Yes 03/24/18 13:14 Consult Physician Routine Consulting Provider: Jered Hankins Consult Reason/Comments: fever, tooth infection Do you want consulting provider notified?: Yes Primary care physician: Yoon Phillips [facility] Course: Discharge diagnosis 1. Chest pain. EKG completed showing patient in supraventricular tachycardia. This x-ray completed showing suggestion of some volume loss in the left side with shift of the heart left side without change compared to old exam. No acute lung disease. D-dimer 0.84. CTA completed showing no pulmonary embolism. T4 compression fracture unchanged. Cardiology services have been consulted. Initial troponin negative. Second troponin 0.018. Discussed with cardiology services. Patient was in sinus tachycardia and SVT. Patient started on clonidine for blood pressure control. No further cardiac workup at this time. Catapres will be DC'd patient's blood pressure systolic 90 to 100s. Discussed case with cardiology ARTIST WOODBLOCK 2. History of alcohol dependence. Patient reports he has been drinking for one week. Serum alcohol 128 upon arrival. CIWA protocal initiated. Continue thiamine 3. History of paroxysmal atrial fibrillation not on anticoagulation due to history of esophageal varices 4. Diabetes mellitus type 2. maintained on metformin 5. History of esophageal varices per EGD and ligation on 10/21/2017 6. History of pulmonary embolism 7. Iron deficiency anemia 8. History of TIA 9. Essential hypertension. Patient maintained on nadolol. 10. History of COPD. No exacerbation at this time 11. Chronic liver cirrhosis with secondary portal hypertension 12. Vitamin D deficiency 13. History of thrombocytopenia. Platelet level 74 14. Elevated lactic acid. Initial lactic acid 4.2. Repeat 2.1 blood culture has been ordered. Blood culture currently negative 15. Dental will left upper tooth infection with left facial swelling noted. Patient also having temps of 100.5. Patient currently on Zosyn for IV antibiotics. Per Dr. Fan continue current antibiotic therapy, emergency surgery is not recommended. Patient will need to the extraction as outpatient. Infectious disease consulted. Per infectious disease patient will be discharged home on Augmentin for 2 weeks. Patient to follow-up outpatient with dental services for further workup for dental infection Hospital course This is a 62-year-old male patient of Dr. Phillips. Patient presented to emergency room with complaints of chest pain. EKG completed in route showing patient in SVT. She has known past medical history of atrial fibrillation, chest pain, COPD, CVA, diabetes mellitus, GERD, GI bleed, hyperlipidemia, essential hypertension, pneumonia, pulmonary embolism, esophageal varices and seizures. Patient also has known past EtOH history with chronic liver cirrhosis with secondary portal hypertension. Chest x-ray completed showing suggestion of small volume loss and left side with shift of heart left-sided without change compared to exam. No acute lung disease. D-dimer elevated at 0.84 CTA completed no evidence of pulmonary embolism. T4 compression fracture unchanged. Serum alcohol 129. Alcohol withdrawal protocal initiated per emergency room. Initial troponin negative. Second troponin 0.018. Lactic acid initial elevated at 4.2. repeat 2.1. Cardiology services have been consulted. At this time patient is complaining of some chest discomfort. Patient also complaining of nausea and vomiting. Patient denies any urinary burning or frequency Patient complaining of left upper tooth pain with headache. Patient does have some soft facial swelling along the left upper lip. Poor dental hygiene. The tooth is tender with palpation and broken gumline is irritated poor dental hygiene. Patient reports that the tooth does need to be pulled. Start patient on Rocephin 1 g daily. Continue with the [place] for pain control. 03/23/2018 patient is currently sitting up comfortably in the chair. Patient is alert and oriented. Patient did have temps throughout night as high as 102.5. Will consult Medical Records Supervisor at this time for further evaluation of tooth infection with facial swelling. Discussed case with cardiology services patient found to have been in sinus tachycardia not SVT. At the time patient denies chest pain or shortness of breath. Patient denies nausea vomiting or diarrhea. Patient denies any urinary burning or frequency. On 03/24/2018 patient is currently resting in bed. Patient is alert and oriented. Patient still having temps at 101.1. This time patient denies cough patient denies nasal congestion. Patient denies chest pain or shortness breath. Patient denies nausea vomiting or diarrhea. Patient denies any urinary burning or frequency. On 03/25/2018 patient is currently resting in bed. Patient does state he feels slightly more improved. Patient has been afebrile. At this time patient denies chest pain or shortness breath. Patient denies nausea vomiting or diarrhea. Patient denies any urinary burning or frequency. Per Infectious disease patient will be DC'd on Augmentin. Patient also to follow-up with dental services outpatient for further workup and possible extraction of infected tooth. I performed an examination of the patient and discussed their management with the Nurse Practitioner. I have reviewed the Nurse Practitioner's notes and agree with the documented findings and plan of care Patient Condition at Discharge: Stable Plan - Discharge Summary Discharge Rx Participant: No New Discharge Prescriptions: New Amoxicillin/Potassium Clav [Augmentin 875-125 Tablet] 1 tab PO Q12HR 14 Days #28 tab Continue metFORMIN HCL 1,000 mg PO BID Nadolol [Corgard] 20 mg PO DAILY #30 tab Acetaminophen [Tylenol] 650 mg PO Q4H PRN PRN Reason: Pain Cholecalciferol [Vitamin D3] 1,000 unit PO DAILY Discharge Medication List metFORMIN HCL 1,000 mg PO BID 09/23/17 [History] Nadolol [Corgard] 20 mg PO DAILY #30 tab 11/11/17 [Rx] Acetaminophen [Tylenol] 650 mg PO Q4H PRN 01/06/18 [History] Cholecalciferol [Vitamin D3] 1,000 unit PO DAILY 01/06/18 [History] Amoxicillin/Potassium Clav [Augmentin 875-125 Tablet] 1 tab PO Q12HR 14 Days # 28 tab 03/25/18 [Rx] Follow up Appointment(s)/Referral(s): Sarika Hathaway MD [STAFF PHYSICIAN] - 1 Week (Please call office to make follow up appointment) Nikita Fan DDS [STAFF PHYSICIAN] - 03/31/18 9:30 am Yoon Phillips DO [Primary Care Provider] - 03/29/18 10:00 am (Wednesday in [place] ) eJred Hankins MD [STAFF PHYSICIAN] - 1 Week Ambulatory/Diagnostic Orders: Complete Blood Count w/diff [LAB.AMB] Time Frame: 4 Days, Location: None Selected Activity/Diet/Wound Care/Special Instructions: Activity as tolerated Diet regular Patient educated about the importance of stopping drinking alcohol. Patient advised to follow-up with dentist for further workup in regards to acute infection Discharge Disposition: HOME SELF-CARE
[2018-03-26] MEDS: HYDROcodone/APAP 5-325MG 1 EACH TAB PO PRN ×2 (04:34→08:43)
[2018-03-26 07:46] LABS: Anisocytosis Slight; Basophils % (A) 0 %; Eosinophils # (A) 0.2 k/uL (0-0.7); Eosinophils % (A) 4 %; HCT 33.4 % (39.0-53.0); HGB 10.8 gm/dL (13.0-17.5); Lymphocytes # (A) 1.2 k/uL (1.0-4.8); Lymphocytes % (A) 31 %; MCH 29.5 pg (25.0-35.0); MCHC 32.4 g/dL (31.0-37.0); MCV 91.1 fL (80.0-100.0); Mean Platelet Volume 8.1; Monocytes # (A) 0.3 k/uL (0-1.0); Monocytes % (A) 8 %; Neutrophils # (A) 2.1 k/uL (1.3-7.7); Neutrophils % (A) 53 %; RBC 3.67 m/uL (4.30-5.90); RDW 16.7 % (11.5-15.5)
[2018-03-26 07:54] LABS: ALT 35 U/L (21-72); AST 53 U/L (17-59); Albumin 3.2 g/dL (3.5-5.0); Alkaline Phosphatase 104 U/L (38-126); Anion Gap 9 mmol/L; Blood Urea Nitrogen 16 mg/dL (9-20); Calcium 8.9 mg/dL (8.4-10.2); Carbon Dioxide 23 mmol/L (22-30); Chloride 107 mmol/L (98-107); Glucose 94 mg/dL (74-99); Potassium 3.9 mmol/L (3.5-5.1); Sodium 139 mmol/L (137-145); Total Bilirubin 0.5 mg/dL (0.2-1.3); Total Protein 6.9 g/dL (6.3-8.2)
[2018-03-26 08:00] LABS: Platelet Count 88 k/uL (150-450)
--- NOTE | 2018-03-26 08:01 | PN ---
PROGRESS NOTE DATE OF SERVICE: 03/25/2018. REASON FOR FOLLOWUP: Left upper teeth infection. INTERVAL HISTORY: The patient is currently afebrile. He is still have some occasional pain into the upper left infected area that is improved with pain medication. Denies having difficulty swallowing. No chest pain, shortness of breath or cough. No abdominal pain. No diarrhea. EXAMINATION: Blood pressure is 122/72 with a pulse of 75, temperature 98.2. He is 93% on room air. General description is a middle aged male up in the bed in no distress. RESPIRATORY SYSTEM: Unlabored breathing. Clear to auscultation anteriorly. HEART: S1, S2. Regular rate and rhythm. ABDOMEN: Soft, no tenderness. LABS: Hemoglobin is 11.1, white count 4.0, BUN of 16, creatinine 1.6. DIAGNOSTIC IMPRESSION AND PLAN: Patient with left upper teeth infection in a patient who did have a fever that could be more likely related to his DTs with infected teeth. The patient is currently on Unasyn and that will be transitioned to oral Augmentin 875 b.i.d. for 2 weeks on discharge with close outpatient followup. MMODL / IJN: [id number] /
[2018-03-26] MEDS: ASPIRIN 325 MG TAB PO SCH (08:06)
[2018-03-26] MEDS: cloNIDine HCL 0.1 MG TAB PO SCH (08:06)
[2018-03-26] MEDS: CHOLECALCIFEROL 1,000 UNIT TAB PO SCH (08:07)
[2018-03-26] MEDS: PANTOPRAZOLE 40 MG TABLET PO SCH (08:07)
[2018-03-26] MEDS: MAGNESIUM OXIDE 400 MG TAB PO SCH (08:07)
[2018-03-26] MEDS: NADOLOL 20 MG TAB PO SCH (08:08)
[2018-03-26] MEDS: metFORMIN 500 MG TAB PO SCH (08:08)
[2018-03-26] MEDS: AMPICILLIN-SULBACTAM 3 GM in SODIUM CHLORIDE 0.9% 100 ML IVPB SCH (08:11)
[2018-03-26 08:15] LABS: Glucose,Whole Blood 102 mg/dL (75-99)
[2018-03-26 09:40] VITALS: RESP 20; TEMP 97.4
[2018-03-26 10:02] VITALS: BP 115/58; PULSE 75
[2018-03-26] MEDS: THIAMINE 100 MG TAB PO SCH (11:15)
--- NOTE | 2018-03-26 12:30 | P.PN ---
Subjective Progress Note Date: 03/26/18 This is a 62-year-old male patient of Dr. Phillips. Patient presented to emergency room with complaints of chest pain. EKG completed in route showing patient in SVT. She has known past medical history of atrial fibrillation, chest pain, COPD, CVA, diabetes mellitus, GERD, GI bleed, hyperlipidemia, essential hypertension, pneumonia, pulmonary embolism, esophageal varices and seizures. Patient also has known past EtOH history with chronic liver cirrhosis with secondary portal hypertension. Chest x-ray completed showing suggestion of small volume loss and left side with shift of heart left-sided without change compared to exam. No acute lung disease. D-dimer elevated at 0.84 CTA completed no evidence of pulmonary embolism. T4 compression fracture unchanged. Serum alcohol 129. Alcohol withdrawal protocal initiated per emergency room. Initial troponin negative. Second troponin 0.018. Lactic acid initial elevated at 4.2. repeat 2.1. Cardiology services have been consulted. At this time patient is complaining of some chest discomfort. Patient also complaining of nausea and vomiting. Patient denies any urinary burning or frequency Patient complaining of left upper tooth pain with headache. Patient does have some soft facial swelling along the left upper lip. Poor dental hygiene. The tooth is tender with palpation and broken gumline is irritated poor dental hygiene. Patient reports that the tooth does need to be pulled. Start patient on Rocephin 1 g daily. Continue with the [place] for pain control. 03/23/2018 patient is currently sitting up comfortably in the chair. Patient is alert and oriented. Patient did have temps throughout night as high as 102.5. Will consult Signals Collector/Analyst at this time for further evaluation of tooth infection with facial swelling. Discussed case with cardiology services patient found to have been in sinus tachycardia not SVT. At the time patient denies chest pain or shortness of breath. Patient denies nausea vomiting or diarrhea. Patient denies any urinary burning or frequency. On 03/24/2018 patient is currently resting in bed. Patient is alert and oriented. Patient still having temps at 101.1. This time patient denies cough patient denies nasal congestion. Patient denies chest pain or shortness breath. Patient denies nausea vomiting or diarrhea. Patient denies any urinary burning or frequency. On 03/26/2018 patient was seen and examined on the medical floor, he was discharged yesterday however, he was still having elevated temperature yesterday , and did not feel ready to go home, today he is feeling better he is alert and oriented 3, he is still having pain in his jaw but has improved since yesterday , patient was cleared by cardiology for discharge, he was also evaluated by infectious disease and was cleared for discharge on oral antibiotic Augmentin, today there is no fever or chills no headache or dizziness no chest pain no shortness of breath no cough no nausea or vomiting no abdominal pain no diarrhea and no urinary symptoms Objective - Vital Signs Vital signs: Vital Signs Temp 97.4 F L 03/26/18 07:00 Pulse 75 03/26/18 10:01 Resp 20 03/26/18 10:01 BP 115/58 03/26/18 10:01 Pulse Ox 95 03/26/18 10:01 Intake & Output 03/25/18 03/26/18 03/26/18 18:59 06:59 18:59 Intake Total 160 Balance 160 Weight 76.8 kg Intake: Intake, IV Titration 160 Amount Ampicillin-Sulbactam 3 gm 160 In Sodium Chloride 0.9% 100 ml @ 200 mls/hr IVPB Q8HR [facility] Rx#:[id number] Other: Voiding Method Toilet # Voids 2 3 - Exam Head normocephalic. Left facial swelling. Left upper teeth decay noted Neck supple no JVD no goiter Lungs clear to auscultation bilaterally no wheezing or crackles Heart regular rate and rhythm S1-S2, no rub or gallop Abdomen is soft nontender nondistended positive bowel sounds no hepatosplenomegaly Extremities no edema no cyanosis or clubbing Neuro alert and orientated to 3 - Labs CBC & Chem 7: 03/26/18 06:52 03/26/18 06:52 Labs: Abnormal Lab Results - Last 24 Hours (Table) 03/26/18 03/26/18 03/26/18 Range/Units 06:52 06:52 08:04 RBC 3.67 L (4.30-5.90) m/uL Hgb 10.8 L (13.0-17.5) gm/dL Hct 33.4 L (39.0-53.0) % RDW 16.7 H (11.5-15.5) % Plt Count 88 L (150-450) k/uL POC Glucose (mg/dL) 102 H (75-99) mg/dL Albumin 3.2 L (3.5-5.0) g/dL Microbiology - Last 24 Hours (Table) 03/22/18 00:58 Blood Culture - Preliminary Blood No Growth after 96 hours Assessment and Plan Plan: 1. Chest pain. EKG completed showing patient in supraventricular tachycardia. This x-ray completed showing suggestion of some volume loss in the left side with shift of the heart left side without change compared to old exam. No acute lung disease. D-dimer 0.84. CTA completed showing no pulmonary embolism. T4 compression fracture unchanged. Cardiology services have been consulted. Initial troponin negative. Second troponin 0.018. Discussed with cardiology services. Patient was in sinus tachycardia and SVT. Patient started on clonidine for blood pressure control. No further cardiac workup at this time. 2. History of alcohol dependence. Patient reports he has been drinking for one week. Serum alcohol 128 upon arrival. CIWA protocal initiated. Continue thiamine 3. History of paroxysmal atrial fibrillation not on anticoagulation due to history of esophageal varices 4. Diabetes mellitus type 2. maintained on metformin 5. History of esophageal varices per EGD and ligation on 10/21/2017 6. History of pulmonary embolism 7. Iron deficiency anemia 8. History of TIA 9. Essential hypertension. Patient maintained on nadolol. 10. History of COPD. No exacerbation at this time 11. Chronic liver cirrhosis with secondary portal hypertension 12. Vitamin D deficiency 13. History of thrombocytopenia. Platelet level 74 14. Elevated lactic acid. Initial lactic acid 4.2. Repeat 2.1 blood culture has been ordered. Blood culture currently negative 15. Dental will left upper tooth infection with left facial swelling noted. Patient also having temps of 100.5. Patient currently on Zosyn for IV antibiotics. Per Dr. Fna continue current antibiotic therapy, emergency surgery is not recommended. Patient will need to the extraction as outpatient. DVT prophylaxis SCDs due to thrombocytopenia. GI prophylaxis Protonix Amylase and lipase labs have been ordered due to patient having nausea Patient will be discharged home today on 03/26/2018 Continue with Augmentin 875 twice a day Continue with albuterol and clonidine for blood pressure control Follow-up with primary care physician within 2-3 days
--- NOTE | 2018-03-26 16:10 | PN ---
PROGRESS NOTE DATE OF SERVICE: 03/26/2018. REASON FOR FOLLOWUP: Left upper teeth and jaw infection. INTERVAL HISTORY: The patient is currently afebrile. He is still complaining of pain in the upper jaw area. The patient denies having any chest pain, shortness of breath or cough. No abdominal pain and no difficulty swallowing. EXAMINATION: Blood pressure is 115/58 with a pulse of 75. Temperature 98.4. He is 95% on room air. General description is a middle aged male up in the bed in no distress. RESPIRATORY SYSTEM: Unlabored breathing. Clear to auscultation anteriorly. HEART: S1, S2. Regular rate and rhythm. ABDOMEN: Soft, no tenderness. Examination of the upper jaw: He did have dentition, but no swelling, redness or any drainage. LABS: Hemoglobin is 10.8, white count 4.0, BUN of 15, creatinine 0.4. DIAGNOSTIC IMPRESSION AND PLAN: Patient with bad dentition with infection of the left upper jaw and teeth. Plan at this time is to switch him over to Augmentin 875 b.i.d. for 2 weeks with close outpatient followup and follow up with his dentist for removal of the infected teeth. Continue supportive care. MMODL / IJN: [id number] /
== END 2018-03-26 15:00 | disposition home or self-care (01) | DRG 309 ==
LOC: EC 00:36 → 3SCARD 03:21 → 4SSUR 03-24 22:29
PROVIDERS: ADMIT Internal Medicine; ATTEND Internal Medicine
DX: I47.1 Supraventricular tachycardia (principal); E87.2 Acidosis; F10.231 Alcohol dependence with withdrawal delirium; K76.6 Portal hypertension; M48.54XA Collapsed vertebra, not elsewhere classified, thoracic region, initial encounter for fracture; D50.9 Iron deficiency anemia, unspecified; D69.6 Thrombocytopenia, unspecified; E11.9 Type 2 diabetes mellitus without complications; E78.5 Hyperlipidemia, unspecified; E83.42 Hypomagnesemia; H91.90 Unspecified hearing loss, unspecified ear; I10 Essential (primary) hypertension; I48.0 Paroxysmal atrial fibrillation; J44.9 Chronic obstructive pulmonary disease, unspecified; K04.7 Periapical abscess without sinus; K21.9 Gastro-esophageal reflux disease without esophagitis; K70.30 Alcoholic cirrhosis of liver without ascites; M41.9 Scoliosis, unspecified; Y90.6 Blood alcohol level of 120-199 mg/100 ml; M50.30 Other cervical disc degeneration, unspecified cervical region; G89.29 Other chronic pain; Z79.84 Long term (current) use of oral hypoglycemic drugs; Z82.3 Family history of stroke; Z82.5 Family history of asthma and other chronic lower respiratory diseases; Z86.711 Personal history of pulmonary embolism; Z86.73 Personal history of transient ischemic attack (TIA), and cerebral infarction without residual deficits; Z91.14 Patient's other noncompliance with medication regimen; Z91.19 Patient's noncompliance with other medical treatment and regimen; Z87.19 Personal history of other diseases of the digestive system; Z87.01 Personal history of pneumonia (recurrent); R56.9 Unspecified convulsions; Z79.899 Other long term (current) drug therapy; Z91.012 Allergy to eggs; Z88.8 Allergy status to other drugs, medicaments and biological substances; Z91.018 Allergy to other foods; K57.90 Diverticulosis of intestine, part unspecified, without perforation or abscess without bleeding
CPT/HCPCS: 36415; 71045; 71275; 80053; 80061; 80320; 81003; 82150; 82550; 82553; 83605; 83690; 83735; 83880; 84484; 85025; 85379; 85610; 85730; 87040; 87086; 87502; 93005; 93306; 96361; 96372; 96374; 96375; 96376; 99291

== ENCOUNTER 2018-04-24 10:06 | Observation (INO) | payer OTHER ==
[2018-04-24] MEDS ORDERED: LORazepam 2 MG/ML INJ IV STA ×2 (11:19→13:35)
[2018-04-24] MEDS ORDERED: SODIUM CHLORIDE 0.9% 1,000 ML IV STA ×2 (11:19→13:35)
--- NOTE | 2018-04-24 11:23 | ED ---
General Adult HPI - General Chief complaint: Arrhythmia/Palpitations Stated complaint: Palpitation Time Seen by Provider: 04/24/18 11:07 Source: patient, RN notes reviewed Mode of arrival: EMS Limitations: no limitations - History of Present Illness Initial comments: Patient is a pleasant 63-year-old male presenting to the emergency Department with feeling shaky. Patient admits to trying to decrease alcohol use lately. Patient does have some palpitations. Patient does have some mid to upper thoracic discomfort. Patient states that has been sharp and present for a few days. Patient does have history of pulmonary embolism. Patient does have some dyspnea. No chest pain. No leg pain or leg swelling. No cough or fever. - Related Data Home Medications Medication Instructions Recorded Confirmed metFORMIN HCL 1,000 mg PO BID 09/23/17 04/24/18 Cholecalciferol [Vitamin D3] 1,000 unit PO DAILY 01/06/18 04/24/18 Ferrous Sulfate [Feosol] 325 mg PO DAILY 04/24/18 04/24/18 Folic Acid 1 mg PO DAILY 04/24/18 04/24/18 Magnesium Oxide [Mag-Ox] 400 mg PO HS 04/24/18 04/24/18 Pantoprazole [Protonix] 40 mg PO BID 04/24/18 04/24/18 Previous Rx's Medication Instructions Recorded Nadolol [Corgard] 20 mg PO DAILY #30 tab 11/11/17 Aspirin [Children's Aspirin] 81 mg PO DAILY #30 tab.chew 03/26/18 cloNIDine HCL [Catapres] 0.1 mg PO BID #60 tab 03/26/18 Allergies Allergy/AdvReac Type Severity Reaction Status Date / Time adhesive tape Allergy Rash/Hives Verified 04/24/18 12:42 egg AdvReac Nausea & Verified 04/24/18 12:42 Vomiting lisinopril AdvReac EYES Verified 04/24/18 12:42 BURN&ITCH/WEAKNESS tomato AdvReac Nausea & Verified 04/24/18 12:42 Vomiting & Diarrhea Review of Systems ROS Statement: Those systems with pertinent positive or pertinent negative responses have been documented in the HPI. ROS Other: All systems not noted in ROS Statement are negative. Constitutional: Denies: fever Eyes: Denies: eye pain ENT: Denies: ear pain Respiratory: Reports: dyspnea. Denies: cough Cardiovascular: Reports: palpitations. Denies: chest pain Endocrine: Denies: fatigue Gastrointestinal: Denies: abdominal pain Genitourinary: Denies: dysuria Musculoskeletal: Reports: back pain Skin: Denies: rash Neurological: Denies: weakness Past Medical History Past Medical History: Atrial Fibrillation, Chest Pain / Angina, COPD, CVA/TIA, Diabetes Mellitus, GERD/Reflux, GI Bleed, Hyperlipidemia, Hypertension, Pneumonia, Pulmonary Embolus (PE) Additional Past Medical History / Comment(s): Alcoholism, chronic alcoholic cirrhosis with portal hypertension and previous history of GI bleeding, esophageal varices, diabetes mellitus, hypertension, hyperlipidemia, previous history of childhood seizure which he outgrew not taking any antiepileptic medication, history of atrial fibrillation, history of pulmonary embolism, hypertension, hyperlipidemia, previous history of GI bleed, previous history of CVA without any residual deficits. He also has history of diverticulosis, chronic lower extremity ankle edema, previous history of septicemia, cervical disc disease with chronic back pain, degenerative arthritis involving the lower back, tinnitus History of Any Multi-Drug Resistant Organisms: None Reported Past Surgical History: Appendectomy, Cholecystectomy Additional Past Surgical History / Comment(s): 07/20/17 EGD, 03/21/17 EGD/ colonoscopy, other colonoscopies. Past Anesthesia/Blood Transfusion Reactions: Previous Problems w/ Anesthesia Additional Past Anesthesia/Blood Transfusion Reaction / Comment(s): after appendix removed sob Past Psychological History: Anxiety, Depression Smoking Status: Never smoker Past Alcohol Use History: Occasional Past Drug Use History: None Reported - Past Family History Mother Family Medical History: COPD, CVA/TIA, Dementia Additional Family Medical History / Comment(s): from a stroke Father Family Medical History: Pneumonia Additional Family Medical History / Comment(s): Father of pneumonia when he was close to 80 yrs old. General Exam Limitations: no limitations General appearance: alert, in no apparent distress Head exam: Present: atraumatic Eye exam: Present: normal appearance Neck exam: Present: normal inspection Respiratory exam: Present: normal lung sounds bilaterally. Absent: chest wall tenderness Cardiovascular Exam: Present: tachycardia Expanded Peripheral pulses: 2+: Radial (R), Radial (L), Dorsalis Pedis (R), Dorsalis Pedis (L) GI/Abdominal exam: Present: soft. Absent: tenderness Extremities exam: Present: normal inspection. Absent: pedal edema, calf tenderness Back exam: Present: normal inspection. Absent: tenderness Neurological exam: Present: alert Psychiatric exam: Present: normal affect, normal mood Skin exam: Present: normal color Course Vital Signs 04/24/18 04/24/18 04/24/18 10:19 10:20 11:00 Temperature 98.1 F Pulse Rate 130 H 131 H 130 H Pulse Rate [ Organizational Research Consultant ] Respiratory 11 L 18 16 Rate Blood Pressure 158/101 146/100 O2 Sat by Pulse 95 94 L Oximetry 04/24/18 04/24/18 04/24/18 11:36 12:00 13:00 Temperature Pulse Rate 135 H 135 H Pulse Rate [ 128 H Organizational Research Consultant ] Respiratory 6 L 14 Rate Blood Pressure 136/100 146/87 O2 Sat by Pulse 95 92 L Oximetry 04/24/18 14:00 Temperature Pulse Rate 123 H Pulse Rate [ Organizational Research Consultant ] Respiratory 16 Rate Blood Pressure 139/93 O2 Sat by Pulse 93 L Oximetry EKG Findings - EKG Comments: EKG Findings:: Sinus tachycardia 127. NE 150. QRS 66. QT 290. QTC 421. Normal axis. Normal QRS. No acute ST change. Medical Decision Making - Medical Decision Making Patient reevaluated and resting comfortably in bed. Heart rate remains above 120 despite fluid and Ativan. Case was discussed with Dr. Finney, who will admit covering for Dr. Phillips. - Lab Data Result diagrams: 04/24/18 10:29 04/24/18 10:29 Lab Results 04/24/18 04/24/18 04/24/18 Range/Units 10:29 10:29 10:29 WBC 5.3 (3.8-10.6) k/uL RBC 4.56 (4.30-5.90) m/uL Hgb 13.7 (13.0-17.5) gm/dL Hct 42.7 (39.0-53.0) % MCV 93.6 (80.0-100.0) fL MCH 30.1 (25.0-35.0) pg MCHC 32.2 (31.0-37.0) g/dL RDW 17.5 H (11.5-15.5) % Plt Count 171 D (150-450) k/uL Neutrophils % 54 % Lymphocytes % 36 % Monocytes % 6 % Eosinophils % 2 % Basophils % 1 % Neutrophils # 2.9 (1.3-7.7) k/uL Lymphocytes # 1.9 (1.0-4.8) k/uL Monocytes # 0.3 (0-1.0) k/uL Eosinophils # 0.1 (0-0.7) k/uL Basophils # 0.0 (0-0.2) k/uL Anisocytosis Slight PT (9.0-12.0) sec INR (<1.2) APTT (22.0-30.0) sec Sodium 147 H (137-145) mmol/L Potassium 4.3 (3.5-5.1) mmol/L Chloride 110 H (98-107) mmol/L Carbon Dioxide 24 (22-30) mmol/L Anion Gap 13 mmol/L BUN 10 (9-20) mg/dL Creatinine 0.88 (0.66-1.25) mg/dL Est GFR (CKD-EPI)AfAm >90 (>60 ml/min/1.73 sqM) Est GFR (CKD-EPI)NonAf >90 (>60 ml/min/1.73 sqM) Glucose 113 H (74-99) mg/dL Calcium 8.9 (8.4-10.2) mg/dL Magnesium 1.6 (1.6-2.3) mg/dL Total Bilirubin 0.5 (0.2-1.3) mg/dL AST 69 H (17-59) U/L ALT 43 (21-72) U/L Alkaline Phosphatase 112 (38-126) U/L Total Creatine Kinase 79 (55-170) U/L CK-MB (CK-2) 0.4 (0.0-2.4) ng/mL CK-MB (CK-2) Rel Index 0.5 Troponin I <0.012 (0.000-0.034) ng/mL Total Protein 8.3 H (6.3-8.2) g/dL Albumin 4.1 (3.5-5.0) g/dL TSH 0.357 L (0.465-4.680) mIU/L Free T4 0.93 (0.78-2.19) ng/dL Free T3 pg/mL 2.8 (2.8-5.3) pg/ml Serum Alcohol 185 mg/dL 04/24/18 Range/Units 10:29 WBC (3.8-10.6) k/uL RBC (4.30-5.90) m/uL Hgb (13.0-17.5) gm/dL Hct (39.0-53.0) % MCV (80.0-100.0) fL MCH (25.0-35.0) pg MCHC (31.0-37.0) g/dL RDW (11.5-15.5) % Plt Count (150-450) k/uL Neutrophils % % Lymphocytes % % Monocytes % % Eosinophils % % Basophils % % Neutrophils # (1.3-7.7) k/uL Lymphocytes # (1.0-4.8) k/uL Monocytes # (0-1.0) k/uL Eosinophils # (0-0.7) k/uL Basophils # (0-0.2) k/uL Anisocytosis PT 11.2 (9.0-12.0) sec INR 1.1 (<1.2) APTT 25.9 (22.0-30.0) sec Sodium (137-145) mmol/L Potassium (3.5-5.1) mmol/L Chloride (98-107) mmol/L Carbon Dioxide (22-30) mmol/L Anion Gap mmol/L BUN (9-20) mg/dL Creatinine (0.66-1.25) mg/dL Est GFR (CKD-EPI)AfAm (>60 ml/min/1.73 sqM) Est GFR (CKD-EPI)NonAf (>60 ml/min/1.73 sqM) Glucose (74-99) mg/dL Calcium (8.4-10.2) mg/dL Magnesium (1.6-2.3) mg/dL Total Bilirubin (0.2-1.3) mg/dL AST (17-59) U/L ALT (21-72) U/L Alkaline Phosphatase (38-126) U/L Total Creatine Kinase (55-170) U/L CK-MB (CK-2) (0.0-2.4) ng/mL CK-MB (CK-2) Rel Index Troponin I (0.000-0.034) ng/mL Total Protein (6.3-8.2) g/dL Albumin (3.5-5.0) g/dL TSH (0.465-4.680) mIU/L Free T4 (0.78-2.19) ng/dL Free T3 pg/mL (2.8-5.3) pg/ml Serum Alcohol mg/dL - Radiology Data Radiology results: report reviewed (Computed tomography scan negative for PE) Disposition Clinical Impression: Tachycardia Disposition: ADMITTED IP TO THIS HOSP Is patient prescribed a controlled substance at d/c from ED?: No Referrals: Yoon Phillips DO [Primary Care Provider] - 1-2 days Decision Time: 14:44
[2018-04-24 11:56] LABS: Anisocytosis Slight; Basophils % (A) 1 %; Eosinophils # (A) 0.1 k/uL (0-0.7); Eosinophils % (A) 2 %; HCT 42.7 % (39.0-53.0); Lymphocytes # (A) 1.9 k/uL (1.0-4.8); Lymphocytes % (A) 36 %; MCH 30.1 pg (25.0-35.0); MCHC 32.2 g/dL (31.0-37.0); MCV 93.6 fL (80.0-100.0); Monocytes # (A) 0.3 k/uL (0-1.0); Monocytes % (A) 6 %; Neutrophils # (A) 2.9 k/uL (1.3-7.7); Neutrophils % (A) 54 %; RBC 4.56 m/uL (4.30-5.90); RDW 17.5 % (11.5-15.5); WBC 5.3 k/uL (3.8-10.6)
[2018-04-24 12:00] LABS: ALT 43 U/L (21-72); AST 69 U/L (17-59); Albumin 4.1 g/dL (3.5-5.0); Alkaline Phosphatase 112 U/L (38-126); Anion Gap 13 mmol/L; Blood Urea Nitrogen 10 mg/dL (9-20); Calcium 8.9 mg/dL (8.4-10.2); Carbon Dioxide 24 mmol/L (22-30); Chloride 110 mmol/L (98-107); Glucose 113 mg/dL (74-99); HGB 13.7 gm/dL (13.0-17.5); Magnesium 1.6 mg/dL (1.6-2.3); Platelet Count 171 k/uL (150-450); Potassium 4.3 mmol/L (3.5-5.1); Sodium 147 mmol/L (137-145); Total Bilirubin 0.5 mg/dL (0.2-1.3); Total Protein 8.3 g/dL (6.3-8.2)
[2018-04-24 12:04] LABS: Alcohol 185 mg/dL; INR 1.1 (<1.2); Partial Thromboplastin Time 25.9 sec (22.0-30.0); Prothrombin Time 11.2 sec (9.0-12.0)
[2018-04-24 12:14] LABS: Creatine Kinase 79 U/L (55-170)
[2018-04-24 12:17] LABS: T4, Free (Free Thyroxine) 0.93 ng/dL (0.78-2.19)
[2018-04-24 12:27] LABS: Creatine Kinase MB 0.4 ng/mL (0.0-2.4); Troponin I <0.012 ng/mL (0.000-0.034)
--- NOTE | 2018-04-24 13:17 | CT ---
EXAMINATION TYPE: CT angio chest DATE OF EXAM: 04/24/2018 12:39 PM COMPARISON: Previous study dated 03/22/2018. HISTORY: Chest pain CT DLP: 263 mGycm Automated exposure control for dose reduction was used. CONTRAST: CTA scan of the thorax is performed with IV Contrast, patient injected with 100 mL of Isovue 370, pul monary embolism protocol. . FINDINGS: There is dependent atelectasis in the dependent portions of the lungs. Lungs otherwise john r. There is no significant axillary, mediastinal or hilar adenopathy. There is no evidence of pulmonary embolus. The aorta is normal in caliber without evidence of dissection. There is no pleural or pericardial fluid. The heart is not enlarged. Visualized portions of the upper abdomen are unremarkable. There is hypertrophic spondylosis within the spine., IMPRESSION: THIS EXAMINATION IS NEGATIVE FOR PULMONARY EMBOLUS.
[2018-04-24] MEDS ORDERED: LORazepam 2 MG/ML INJ IV PRN ×2 (14:45)
[2018-04-24] MEDS ORDERED: THIAMINE 100 MG/ML 2 ML VIAL IM STA (14:45)
[2018-04-24] MEDS ORDERED: NALOXONE 0.4 MG/ML 1 ML VIAL IV PRN (14:46)
[2018-04-24] MEDS: SODIUM CHLORIDE 0.9% 1,000 ML IV SCH ×2 (19:13→23:58)
[2018-04-24] MEDS ORDERED: Magnesium Replacement Protocol 1 EACH MISC MISCELLANE PRN (20:13)
[2018-04-24 20:31] VITALS: BMI 28.9
[2018-04-24] MEDS: FAMOTIDINE 20 MG TAB PO SCH (20:35)
[2018-04-24 20:47] LABS: Glucose,Whole Blood 101 mg/dL (75-99)
[2018-04-24] MEDS: THIAMINE 100 MG TAB PO SCH (21:12)
[2018-04-24] MEDS: MAGNESIUM SULFATE-D5W PMX 1 GM in DEXTROSE/WATER 1 100ML.BAG IVPB SCH ×2 (21:12→23:37)
[2018-04-24] MEDS: cloNIDine HCL 0.1 MG TAB PO SCH (21:12)
[2018-04-24] MEDS: metFORMIN 500 MG TAB PO SCH (21:12)
[2018-04-24] MEDS: MAGNESIUM OXIDE 400 MG TAB PO SCH (21:12)
[2018-04-24] MEDS: INSULIN ASPART 100 UNIT/ML 1 ML 10 ML VIAL SQ SCH (21:13)
[2018-04-24] MEDS: NADOLOL 20 MG TAB PO SCH (23:36)
[2018-04-25] MEDS: LORazepam 2 MG/ML INJ IV PRN (05:59)
[2018-04-25 06:07] LABS: Glucose,Whole Blood 130 mg/dL (75-99)
[2018-04-25] MEDS: INSULIN ASPART 100 UNIT/ML 1 ML 10 ML VIAL SQ SCH ×3 (06:50→16:42)
[2018-04-25] MEDS: PANTOPRAZOLE 40 MG TABLET PO SCH ×2 (06:58→16:44)
[2018-04-25 08:55] LABS: Anisocytosis Slight; Basophils % (A) 1 %; Eosinophils # (A) 0.2 k/uL (0-0.7); Eosinophils % (A) 4 %; HCT 39.6 % (39.0-53.0); HGB 12.8 gm/dL (13.0-17.5); Lymphocytes # (A) 1.3 k/uL (1.0-4.8); Lymphocytes % (A) 24 %; MCHC 32.3 g/dL (31.0-37.0); MCV 92.8 fL (80.0-100.0); Mean Platelet Volume 8.2; Monocytes # (A) 0.3 k/uL (0-1.0); Monocytes % (A) 6 %; Neutrophils # (A) 3.4 k/uL (1.3-7.7); Neutrophils % (A) 64 %; Platelet Count 127 k/uL (150-450); RBC 4.26 m/uL (4.30-5.90); RDW 16.8 % (11.5-15.5); WBC 5.3 k/uL (3.8-10.6)
[2018-04-25] MEDS: FERROUS SULFATE 325 MG TAB PO SCH (09:07)
[2018-04-25] MEDS: metFORMIN 500 MG TAB PO SCH ×2 (09:07→22:28)
[2018-04-25] MEDS: FAMOTIDINE 20 MG TAB PO SCH ×2 (09:08→22:28)
[2018-04-25] MEDS: ASPIRIN 81 MG PO SCH (09:08)
[2018-04-25] MEDS: NADOLOL 20 MG TAB PO SCH (09:08)
[2018-04-25] MEDS: CHOLECALCIFEROL 1,000 UNIT TAB PO SCH (09:08)
[2018-04-25] MEDS: cloNIDine HCL 0.1 MG TAB PO SCH ×2 (09:08→22:28)
[2018-04-25 09:11] LABS: ALT 33 U/L (21-72); AST 56 U/L (17-59); Albumin 3.6 g/dL (3.5-5.0); Alkaline Phosphatase 97 U/L (38-126); Anion Gap 8 mmol/L; Blood Urea Nitrogen 10 mg/dL (9-20); Calcium 9.4 mg/dL (8.4-10.2); Carbon Dioxide 28 mmol/L (22-30); Chloride 103 mmol/L (98-107); Glucose 131 mg/dL (74-99); Potassium 3.7 mmol/L (3.5-5.1); Sodium 139 mmol/L (137-145); Total Bilirubin 1.3 mg/dL (0.2-1.3); Total Protein 7.6 g/dL (6.3-8.2)
--- NOTE | 2018-04-25 10:49 | P.HPIM ---
History of Present Illness H&P Date: 04/25/18 Chief Complaint: Tachycardia with alcohol withdrawal This is a 63-year-old patient of Dr. Phillips well-known to my services. Patient presented with complaints of palpitations and overall discomfort. Patient states his last drink was 4 days ago patient has known EtOH abuse. Patient does report that he's been trying to cut down on his alcohol consumption. Patient's additional medical history includes atrial fibrillation , chest pain, COPD, CVA, diabetes mellitus, GERD, GI bleed, hyperlipidemia, hypertension, pneumonia and pulmonary embolism patient also has a known history of chronic alcoholic cirrhosis with portal hypertension. History of GI bleeding with esophageal varices. EKG completed showing sinus tachycardia minimal voltage criteria for LVH may be normal variant. Borderline EKG. CTA completed showing no pulmonary embolism. Patient started on alcohol withdrawal protocol. Home meds resumed. At this time patient denies any chest pain or shortness of breath. Patient is complaining of overall discomfort. Patient denies nausea vomiting or diarrhea. Patient denies any urinary burning or frequency. Review of Systems please refer to HPI otherwise unremarkable Past Medical History Past Medical History: Atrial Fibrillation, Chest Pain / Angina, COPD, CVA/TIA, Diabetes Mellitus, GERD/Reflux, GI Bleed, Hyperlipidemia, Hypertension, Pneumonia, Pulmonary Embolus (PE) Additional Past Medical History / Comment(s): Alcoholism, chronic alcoholic cirrhosis with portal hypertension and previous history of GI bleeding, esophageal varices, diabetes mellitus, hypertension, hyperlipidemia, previous history of childhood seizure which he outgrew not taking any antiepileptic medication, history of atrial fibrillation, history of pulmonary embolism, hypertension, hyperlipidemia, previous history of GI bleed, previous history of CVA without any residual deficits. He also has history of diverticulosis, chronic lower extremity ankle edema, previous history of septicemia, cervical disc disease with chronic back pain, degenerative arthritis involving the lower back, tinnitus History of Any Multi-Drug Resistant Organisms: None Reported Past Surgical History: Appendectomy, Cholecystectomy Additional Past Surgical History / Comment(s): 07/20/17 EGD, 03/21/17 EGD/ colonoscopy, other colonoscopies. Past Anesthesia/Blood Transfusion Reactions: No Reported Reaction Additional Past Anesthesia/Blood Transfusion Reaction / Comment(s): after appendix removed sob Past Psychological History: Anxiety, Depression Additional Psychological History / Comment(s): Pt lives in an apartment alone in [facility]. Apartment complex has front door ramp and has an elevator. no pets. Sometimes his sister stays with him and cleans his home. He uses a cane to ambulate at times. He drives but currently has no car. He gets to [facility] by [employer] bus. He has a nebulizer. Used to work in [employer]. Relates that he's not been a smoker. Denies recreational drug use. His left him many years ago he has adult children that he does not see very often. No experience. No travel history. No animal exposures Smoking Status: Never smoker Past Alcohol Use History: Heavy Additional Past Alcohol Use History / Comment(s): Pt stated when he was younger he drank heavy but had cut down to occ. pt stated he is trying to quit Past Drug Use History: None Reported - Past Family History Mother Family Medical History: COPD, CVA/TIA, Dementia Additional Family Medical History / Comment(s): from a stroke Father Family Medical History: Pneumonia Additional Family Medical History / Comment(s): Father of pneumonia when he was close to 80 yrs old. Medications and Allergies Home Medications Medication Instructions Recorded Confirmed Type metFORMIN HCL 1,000 mg PO BID 09/23/17 04/24/18 History Nadolol [Corgard] 20 mg PO DAILY #30 tab 11/11/17 04/24/18 Rx Cholecalciferol [Vitamin D3] 1,000 unit PO DAILY 01/06/18 04/24/18 History Aspirin [Children's Aspirin] 81 mg PO DAILY #30 tab.chew 03/26/18 04/24/18 Rx cloNIDine HCL [Catapres] 0.1 mg PO BID #60 tab 03/26/18 04/24/18 Rx Ferrous Sulfate [Feosol] 325 mg PO DAILY 04/24/18 04/24/18 History Folic Acid 1 mg PO DAILY 04/24/18 04/24/18 History Magnesium Oxide [Mag-Ox] 400 mg PO HS 04/24/18 04/24/18 History Pantoprazole [Protonix] 40 mg PO BID 04/24/18 04/24/18 History Allergies Allergy/AdvReac Type Severity Reaction Status Date / Time adhesive tape Allergy Rash/Hives Verified 04/24/18 12:42 egg AdvReac Nausea & Verified 04/24/18 12:42 Vomiting lisinopril AdvReac EYES Verified 04/24/18 12:42 BURN&ITCH/WEAKNESS tomato AdvReac Nausea & Verified 04/24/18 12:42 Vomiting & Diarrhea Physical Exam Vitals: Vital Signs Temp Pulse Pulse Resp BP BP BP 04/25/18 08:00 98.5 F 88 20 155/101 04/25/18 04:00 98.0 F 95 16 156/110 04/24/18 23:38 98.4 F 111 H 18 171/101 04/24/18 20:00 98.7 F 138 H 24 154/100 04/24/18 19:00 98.1 F 142 H 20 159/109 04/24/18 17:00 142 H 20 159/109 04/24/18 16:00 131 H 0 L 158/107 04/24/18 15:17 04/24/18 15:09 126 H 17 142/103 04/24/18 15:00 126 H 17 142/103 04/24/18 14:00 123 H 16 139/93 04/24/18 13:00 135 H 14 146/87 04/24/18 12:00 135 H 6 L 136/100 04/24/18 11:36 128 H 04/24/18 11:00 130 H 16 146/100 Pulse Ox 04/25/18 08:00 96 04/25/18 04:00 94 L 04/24/18 23:38 96 04/24/18 20:00 94 L 04/24/18 19:00 95 04/24/18 17:00 95 04/24/18 16:00 94 L 04/24/18 15:17 94 L 04/24/18 15:09 93 L 04/24/18 15:00 93 L 04/24/18 14:00 93 L 04/24/18 13:00 92 L 04/24/18 12:00 95 04/24/18 11:36 04/24/18 11:00 94 L Intake and Output 04/24/18 04/25/18 04/25/18 22:59 06:59 14:59 Intake Total 100 240 Output Total 800 Balance 100 -560 Intake: Intake, IV Titration 100 Amount Magnesium Sulfate-D5w Pmx 100 1 gm In Dextrose/Water 1 100ml.bag @ 100 mls/hr IVPB Q1H [facility], [facility]–1983 Rx#: [id number] Oral 240 Output: Urine 800 Other: Voiding Method Toilet Toilet # Voids 2 1 Weight 78.925 kg 76.9 kg Head normocephalic Neck supple Lungs clear to auscultation bilaterally no wheezing or crackles Heart regular rate and rhythm S1-S2, no rub or gallop Abdomen is soft nontender nondistended positive bowel sounds no hepatosplenomegaly Extremities no edema Neuro alert and orientated to 3 Results CBC & Chem 7: 04/25/18 06:16 04/25/18 06:16 Labs: Abnormal Lab Results - Last 24 Hours (Table) 04/24/18 04/24/18 04/24/18 Range/Units 10:29 10:29 20:45 RBC (4.30-5.90) m/uL Hgb (13.0-17.5) gm/dL RDW 17.5 H (11.5-15.5) % Plt Count (150-450) k/uL Sodium 147 H (137-145) mmol/L Chloride 110 H (98-107) mmol/L Glucose 113 H (74-99) mg/dL POC Glucose (mg/dL) 101 H (75-99) mg/dL AST 69 H (17-59) U/L Total Protein 8.3 H (6.3-8.2) g/dL TSH 0.357 L (0.465-4.680) mIU/L 04/25/18 04/25/18 04/25/18 Range/Units 06:05 06:16 06:16 RBC 4.26 L (4.30-5.90) m/uL Hgb 12.8 L (13.0-17.5) gm/dL RDW 16.8 H (11.5-15.5) % Plt Count 127 L (150-450) k/uL Sodium (137-145) mmol/L Chloride (98-107) mmol/L Glucose 131 H (74-99) mg/dL POC Glucose (mg/dL) 130 H (75-99) mg/dL AST (17-59) U/L Total Protein (6.3-8.2) g/dL TSH (0.465-4.680) mIU/L Thrombosis Risk Factor Assmnt - Choose All That Apply Any of the Below Risk Factors Present?: Yes Each Factor Represents 1 point: Abnormal pulmonary function (COPD), Obesity ( BMI >25) Other Risk Factors: Yes Each Risk Factor Represents 3 Points: History of DVT/PE Thrombosis Risk Factor Assessment Total Risk Factor Score: 5 Thrombosis Risk Factor Assessment Level: High Risk Assessment and Plan Assessment: 1. Tachycardia with palpitations. She completed showing sinus tachycardia. Minimal voltage criteria for LVH, maybe normal variant. Borderline EKG. CTA completed and was negative for PE. Heart rate significantly improved normal sinus rhythm on telemetry heart rate in the 80s. 2. Alcohol withdrawal. Patient's last known drink was 4 days prior per patient. CIWA protocal has been ordered. Continue thiamine 3. History of proximal atrial fibrillation on anticoagulation due to history of esophageal varices 4. History of esophageal varices per EGD and ligation on 10/21/2017 5. History of pulmonary embolism 6. Diabetes mellitus type 2. Metformin resumed 7. Iron deficiency anemia 8. Essential hypertension 9. History of TIA 10. Chronic liver cirrhosis with secondary portal hypertension 11. History of COPD no exacerbation at this time 12. Vitamin D deficiency 13. Chronic thrombocytopenia. Platelets currently 127 DVT prophylaxis SCDs due to patient's history of esophageal varices. GI prophylaxis Protonix Time with Patient: Greater than 30 (Greater than 60% of the total time spent in counseling and coordination of care. I performed an examination of the patient and discussed their management with the Nurse Practitioner. I have reviewed the Nurse Practitioner's notes and agree with the documented findings and plan of care)
[2018-04-25 11:37] LABS: Glucose,Whole Blood 97 mg/dL (75-99)
[2018-04-25] MEDS: THIAMINE 100 MG TAB PO SCH ×2 (12:14→16:44)
[2018-04-25] MEDS: MULTIVITAMINS, THERA 1 EACH TAB PO SCH (12:14)
[2018-04-25 14:26] LABS: Hemoglobin A1C 5.8 % (4.0-6.0)
[2018-04-25 16:26] LABS: Glucose,Whole Blood 117 mg/dL (75-99)
[2018-04-25] MEDS: SODIUM CHLORIDE 0.9% 1,000 ML IV SCH ×2 (16:41→16:42)
[2018-04-25 20:55] LABS: Glucose,Whole Blood 112 mg/dL (75-99)
[2018-04-25] MEDS: MAGNESIUM OXIDE 400 MG TAB PO SCH (22:28)
[2018-04-26 06:00] LABS: Glucose,Whole Blood 105 mg/dL (75-99)
[2018-04-26] MEDS: PANTOPRAZOLE 40 MG TABLET PO SCH ×2 (06:38→17:18)
[2018-04-26] MEDS: INSULIN ASPART 100 UNIT/ML 1 ML 10 ML VIAL SQ SCH ×4 (06:39→17:24)
[2018-04-26] MEDS: SODIUM CHLORIDE 0.9% 1,000 ML IV SCH ×4 (06:40→18:39)
[2018-04-26 07:36] LABS: Anisocytosis Slight; Basophils % (A) 1 %; Eosinophils # (A) 0.1 k/uL (0-0.7); Eosinophils % (A) 3 %; HGB 12.4 gm/dL (13.0-17.5); Lymphocytes # (A) 1.4 k/uL (1.0-4.8); Lymphocytes % (A) 33 %; MCH 29.5 pg (25.0-35.0); MCHC 31.8 g/dL (31.0-37.0); MCV 92.7 fL (80.0-100.0); Mean Platelet Volume 7.4; Monocytes # (A) 0.3 k/uL (0-1.0); Monocytes % (A) 7 %; Neutrophils # (A) 2.4 k/uL (1.3-7.7); Neutrophils % (A) 56 %; Platelet Count 123 k/uL (150-450); RBC 4.21 m/uL (4.30-5.90); RDW 16.7 % (11.5-15.5); WBC 4.4 k/uL (3.8-10.6)
[2018-04-26 07:44] LABS: ALT 25 U/L (21-72); AST 45 U/L (17-59); Albumin 3.5 g/dL (3.5-5.0); Alkaline Phosphatase 90 U/L (38-126); Anion Gap 8 mmol/L; Blood Urea Nitrogen 9 mg/dL (9-20); Calcium 9.3 mg/dL (8.4-10.2); Carbon Dioxide 25 mmol/L (22-30); Chloride 108 mmol/L (98-107); Glucose 102 mg/dL (74-99); Potassium 4.1 mmol/L (3.5-5.1); Sodium 141 mmol/L (137-145); Total Bilirubin 0.8 mg/dL (0.2-1.3); Total Protein 7.1 g/dL (6.3-8.2)
[2018-04-26] MEDS: cloNIDine HCL 0.1 MG TAB PO SCH ×2 (08:40→21:18)
[2018-04-26] MEDS: FAMOTIDINE 20 MG TAB PO SCH (08:40)
[2018-04-26] MEDS: CHOLECALCIFEROL 1,000 UNIT TAB PO SCH (08:40)
[2018-04-26] MEDS: FERROUS SULFATE 325 MG TAB PO SCH (08:41)
[2018-04-26] MEDS: ASPIRIN 81 MG PO SCH (08:41)
[2018-04-26] MEDS: metFORMIN 500 MG TAB PO SCH ×2 (08:45→21:18)
[2018-04-26] MEDS: LORazepam 2 MG/ML INJ IV PRN (08:48)
--- NOTE | 2018-04-26 10:53 | P.PN ---
Subjective Progress Note Date: 04/26/18 This is a 63-year-old patient of Dr. Phillips well-known to my services. Patient presented with complaints of palpitations and overall discomfort. Patient states his last drink was 4 days ago patient has known EtOH abuse. Patient does report that he's been trying to cut down on his alcohol consumption. Patient's additional medical history includes atrial fibrillation , chest pain, COPD, CVA, diabetes mellitus, GERD, GI bleed, hyperlipidemia, hypertension, pneumonia and pulmonary embolism patient also has a known history of chronic alcoholic cirrhosis with portal hypertension. History of GI bleeding with esophageal varices. EKG completed showing sinus tachycardia minimal voltage criteria for LVH may be normal variant. Borderline EKG. CTA completed showing no pulmonary embolism. Patient started on alcohol withdrawal protocol. Home meds resumed. At this time patient denies any chest pain or shortness of breath. Patient is complaining of overall discomfort. Patient denies nausea vomiting or diarrhea. Patient denies any urinary burning or frequency. On 04/26/2018 patient is alert and oriented sitting in bed. Patient is complaining of some abdominal pain with nausea. Will order amylase and lipase levels. Patient denies chest pain or shortness of breath. Patient still complaining of some burning with urination. Will order urinary analysis at this time. Patient remains on alcohol withdrawal protocol Objective - Vital Signs Vital signs: Vital Signs Temp 98 F 04/26/18 08:00 Pulse 72 04/26/18 08:00 Resp 20 04/26/18 08:00 BP 165/99 04/26/18 08:00 Pulse Ox 96 04/26/18 08:00 Intake & Output 04/25/18 04/26/18 04/26/18 18:59 06:59 18:59 Intake Total 1804 240 Output Total 800 0 Balance 1004 0 240 Weight 76.7 kg Intake: Intake, IV Titration 1120 Amount Sodium Chloride 0.9% 1, 1120 000 ml @ 140 mls/hr IV . [facility] Rx#:[id number] Oral 684 240 Output: Urine 800 0 Other: Voiding Method Toilet # Voids 0 # Bowel Movements 0 - Exam Head normocephalic Neck supple Lungs clear to auscultation bilaterally no wheezing or crackles Heart regular rate and rhythm S1-S2, no rub or gallop Abdomen is soft nontender nondistended positive bowel sounds no hepatosplenomegaly Extremities no edema Neuro alert and orientated to 3 - Labs CBC & Chem 7: 04/26/18 06:23 04/26/18 06:23 Labs: Abnormal Lab Results - Last 24 Hours (Table) 04/25/18 04/25/18 04/26/18 Range/Units 16:25 20:54 05:59 RBC (4.30-5.90) m/uL Hgb (13.0-17.5) gm/dL RDW (11.5-15.5) % Plt Count (150-450) k/uL Chloride (98-107) mmol/L Glucose (74-99) mg/dL POC Glucose (mg/dL) 117 H 112 H 105 H (75-99) mg/dL 04/26/18 04/26/18 Range/Units 06:23 06:23 RBC 4.21 L (4.30-5.90) m/uL Hgb 12.4 L (13.0-17.5) gm/dL RDW 16.7 H (11.5-15.5) % Plt Count 123 L (150-450) k/uL Chloride 108 H (98-107) mmol/L Glucose 102 H (74-99) mg/dL POC Glucose (mg/dL) (75-99) mg/dL Assessment and Plan Assessment: 1. Tachycardia with palpitations. She completed showing sinus tachycardia. Minimal voltage criteria for LVH, maybe normal variant. Borderline EKG. CTA completed and was negative for PE. Heart rate significantly improved normal sinus rhythm on telemetry heart rate in the 80s. 2. Alcohol withdrawal. Patient's last known drink was 4 days prior per patient. CIWA protocal has been ordered. Continue thiamine 3. History of proximal atrial fibrillation on anticoagulation due to history of esophageal varices 4. History of esophageal varices per EGD and ligation on 10/21/2017 5. History of pulmonary embolism 6. Diabetes mellitus type 2. Metformin resumed 7. Iron deficiency anemia 8. Essential hypertension 9. History of TIA 10. Chronic liver cirrhosis with secondary portal hypertension 11. History of COPD no exacerbation at this time 12. Vitamin D deficiency 13. Chronic thrombocytopenia due to patient's liver disease. Platelets currently 127 14. Recent upper left tooth infection. Patient was treated outpatient antibiotics and advised to follow-up closely with dental services. Patient reports he has yet to follow-up with dental services but denies any complaints at this time no facial swelling noted 15. Abdominal pain. Will order amylase and lipase levels. Patient recently had EGD completed with Dr. Ramirez in December of this year EGD completed showing gastritis with no evidence of hiatal hernia and mild esophagitis. 2. Burning with urination. Will order urinary analysis DVT prophylaxis SCDs due to patient's history of esophageal varices. GI prophylaxis Protonix I performed an examination of the patient and discussed their management with the Nurse Practitioner. I have reviewed the Nurse Practitioner's notes and agree with the documented findings and plan of care
[2018-04-26 11:03] LABS: Amylase 54 U/L (30-110); Lipase 161 U/L (23-300)
[2018-04-26 11:51] LABS: Glucose,Whole Blood 97 mg/dL (75-99)
[2018-04-26] MEDS: NADOLOL 20 MG TAB PO SCH (12:25)
[2018-04-26] MEDS: THIAMINE 100 MG TAB PO SCH ×2 (12:25→17:18)
[2018-04-26] MEDS: MULTIVITAMINS, THERA 1 EACH TAB PO SCH (12:25)
[2018-04-26 16:07] LABS: Appearance,Urine Clear (Clear); Bilirubin,Urine Negative (Negative); Blood,Urine Negative (Negative); Color,Urine Light Yellow; Glucose,Urine (UA) Negative (Negative); Ketones,Urine Negative (Negative); Leukocyte Esterase,Urine Negative (Negative); Nitrite,Urine Negative (Negative); PH, Urine 7.5 (5.0-8.0); Protein,Urine Negative (Negative); Specific Gravity,Urine 1.006 (1.001-1.035); Urobilinogen,Urine <2.0 mg/dL (<2.0)
[2018-04-26 17:21] LABS: Glucose,Whole Blood 100 mg/dL (75-99)
[2018-04-26 20:58] LABS: Glucose,Whole Blood 97 mg/dL (75-99)
[2018-04-26] MEDS: MAGNESIUM OXIDE 400 MG TAB PO SCH (21:18)
[2018-04-27 06:20] LABS: Glucose,Whole Blood 98 mg/dL (75-99)
[2018-04-27] MEDS: INSULIN ASPART 100 UNIT/ML 1 ML 10 ML VIAL SQ SCH ×5 (06:50→21:37)
[2018-04-27] MEDS: SODIUM CHLORIDE 0.9% 1,000 ML IV SCH ×3 (06:50→16:54)
[2018-04-27] MEDS: PANTOPRAZOLE 40 MG TABLET PO SCH ×2 (06:50→16:58)
[2018-04-27 07:21] LABS: Anisocytosis Slight; Basophils % (A) 1 %; Eosinophils # (A) 0.2 k/uL (0-0.7); Eosinophils % (A) 4 %; HCT 39.2 % (39.0-53.0); HGB 12.7 gm/dL (13.0-17.5); Lymphocytes # (A) 1.5 k/uL (1.0-4.8); Lymphocytes % (A) 35 %; MCH 30.1 pg (25.0-35.0); MCHC 32.4 g/dL (31.0-37.0); Mean Platelet Volume 7.3; Monocytes # (A) 0.3 k/uL (0-1.0); Monocytes % (A) 7 %; Neutrophils # (A) 2.3 k/uL (1.3-7.7); Neutrophils % (A) 52 %; Platelet Count 136 k/uL (150-450); RBC 4.21 m/uL (4.30-5.90); RDW 16.6 % (11.5-15.5); WBC 4.4 k/uL (3.8-10.6)
[2018-04-27 07:42] LABS: ALT 34 U/L (21-72); AST 48 U/L (17-59); Albumin 3.5 g/dL (3.5-5.0); Alkaline Phosphatase 93 U/L (38-126); Anion Gap 8 mmol/L; Blood Urea Nitrogen 10 mg/dL (9-20); Calcium 9.4 mg/dL (8.4-10.2); Carbon Dioxide 22 mmol/L (22-30); Chloride 110 mmol/L (98-107); Glucose 98 mg/dL (74-99); Potassium 3.9 mmol/L (3.5-5.1); Sodium 140 mmol/L (137-145); Total Bilirubin 0.7 mg/dL (0.2-1.3); Total Protein 7.3 g/dL (6.3-8.2)
[2018-04-27] MEDS: MULTIVITAMINS, THERA 1 EACH TAB PO SCH (08:13)
[2018-04-27] MEDS: CHOLECALCIFEROL 1,000 UNIT TAB PO SCH (08:14)
[2018-04-27] MEDS: cloNIDine HCL 0.1 MG TAB PO SCH ×2 (08:14→21:36)
[2018-04-27] MEDS: FERROUS SULFATE 325 MG TAB PO SCH (08:14)
[2018-04-27] MEDS: THIAMINE 100 MG TAB PO SCH ×2 (08:14→16:58)
[2018-04-27] MEDS: metFORMIN 500 MG TAB PO SCH ×2 (08:14→21:36)
[2018-04-27] MEDS: ASPIRIN 81 MG PO SCH (08:14)
[2018-04-27] MEDS: NADOLOL 20 MG TAB PO SCH (08:14)
[2018-04-27 08:18] VITALS: RESP 16
--- NOTE | 2018-04-27 10:40 | P.PN ---
Subjective Progress Note Date: 04/27/18 This is a 63-year-old patient of Dr. Phillips well-known to my services. Patient presented with complaints of palpitations and overall discomfort. Patient states his last drink was 4 days ago patient has known EtOH abuse. Patient does report that he's been trying to cut down on his alcohol consumption. Patient's additional medical history includes atrial fibrillation , chest pain, COPD, CVA, diabetes mellitus, GERD, GI bleed, hyperlipidemia, hypertension, pneumonia and pulmonary embolism patient also has a known history of chronic alcoholic cirrhosis with portal hypertension. History of GI bleeding with esophageal varices. EKG completed showing sinus tachycardia minimal voltage criteria for LVH may be normal variant. Borderline EKG. CTA completed showing no pulmonary embolism. Patient started on alcohol withdrawal protocol. Home meds resumed. At this time patient denies any chest pain or shortness of breath. Patient is complaining of overall discomfort. Patient denies nausea vomiting or diarrhea. Patient denies any urinary burning or frequency. On 04/26/2018 patient is alert and oriented sitting in bed. Patient is complaining of some abdominal pain with nausea. Will order amylase and lipase levels. Patient denies chest pain or shortness of breath. Patient still complaining of some burning with urination. Will order urinary analysis at this time. Patient remains on alcohol withdrawal protocol On 04/27/2018 patient is alert and oriented 3. Patient is currently resting comfortably in bed. Patient does report improvement with abdominal pain patient denies chest pain or shortness breath. Patient Denies nausea or vomiting. Objective - Vital Signs Vital signs: Vital Signs Temp 97.9 F 04/27/18 08:00 Pulse 70 04/27/18 08:00 Resp 16 04/27/18 08:00 BP 158/93 04/27/18 08:00 Pulse Ox 95 04/27/18 08:00 Intake & Output 04/26/18 04/27/18 04/27/18 18:59 06:59 18:59 Intake Total 720 240 Output Total 400 400 500 Balance 320 -400 -260 Weight 76.7 kg Intake: Oral 720 240 Output: Urine 400 400 500 Other: Voiding Method Toilet # Voids 0 1 # Bowel Movements 0 - Exam Head normocephalic Neck supple Lungs clear to auscultation bilaterally no wheezing or crackles Heart regular rate and rhythm S1-S2, no rub or gallop Abdomen is soft nontender nondistended positive bowel sounds no hepatosplenomegaly Extremities no edema Neuro alert and orientated to 3 - Labs CBC & Chem 7: 04/27/18 06:44 04/27/18 06:44 Labs: Abnormal Lab Results - Last 24 Hours (Table) 04/26/18 04/27/18 04/27/18 Range/Units 17:19 06:44 06:44 RBC 4.21 L (4.30-5.90) m/uL Hgb 12.7 L (13.0-17.5) gm/dL RDW 16.6 H (11.5-15.5) % Plt Count 136 L (150-450) k/uL Chloride 110 H (98-107) mmol/L POC Glucose (mg/dL) 100 H (75-99) mg/dL Assessment and Plan Assessment: 1. Tachycardia with palpitations. She completed showing sinus tachycardia. Minimal voltage criteria for LVH, maybe normal variant. Borderline EKG. CTA completed and was negative for PE. Heart rate significantly improved normal sinus rhythm on telemetry heart rate in the 80s. 2. Alcohol withdrawal. Patient's last known drink was 4 days prior per patient. CIWA protocal has been ordered. Continue thiamine 3. History of proximal atrial fibrillation on anticoagulation due to history of esophageal varices 4. History of esophageal varices per EGD and ligation on 10/21/2017 5. History of pulmonary embolism 6. Diabetes mellitus type 2. Metformin resumed 7. Iron deficiency anemia 8. Essential hypertension 9. History of TIA 10. Chronic liver cirrhosis with secondary portal hypertension 11. History of COPD no exacerbation at this time 12. Vitamin D deficiency 13. Chronic thrombocytopenia due to patient's liver disease. Platelets currently 127 14. Recent upper left tooth infection. Patient was treated outpatient antibiotics and advised to follow-up closely with dental services. Patient reports he has yet to follow-up with dental services but denies any complaints at this time no facial swelling noted 15. Abdominal pain. Patient recently had EGD completed with Dr. Ramirez in December of this year EGD completed showing gastritis with no evidence of hiatal hernia and mild esophagitis. Amylase and lipase levels within normal limits 16. Burning with urination. UA negative 17. TSH 0.357. Patient advised to follow-up closely with PCP DVT prophylaxis SCDs due to patient's history of esophageal varices. GI prophylaxis Protonix I performed an examination of the patient and discussed their management with the Nurse Practitioner. I have reviewed the Nurse Practitioner's notes and agree with the documented findings and plan of care
[2018-04-27 11:16] LABS: Glucose,Whole Blood 96 mg/dL (75-99)
[2018-04-27 16:52] LABS: Glucose,Whole Blood 89 mg/dL (75-99)
[2018-04-27] MEDS: LORazepam 2 MG/ML INJ IV PRN (17:04)
[2018-04-27 21:19] LABS: Glucose,Whole Blood 103 mg/dL (75-99)
[2018-04-27] MEDS: MAGNESIUM OXIDE 400 MG TAB PO SCH (21:36)
[2018-04-28 06:01] LABS: Glucose,Whole Blood 100 mg/dL (75-99)
[2018-04-28] MEDS: SODIUM CHLORIDE 0.9% 1,000 ML IV SCH ×2 (06:39→06:40)
[2018-04-28] MEDS: PANTOPRAZOLE 40 MG TABLET PO SCH (06:39)
[2018-04-28 06:49] LABS: Anisocytosis Slight; Basophils % (A) 1 %; Eosinophils # (A) 0.1 k/uL (0-0.7); Eosinophils % (A) 3 %; HGB 12.7 gm/dL (13.0-17.5); Lymphocytes # (A) 1.5 k/uL (1.0-4.8); Lymphocytes % (A) 34 %; MCH 29.7 pg (25.0-35.0); MCHC 31.9 g/dL (31.0-37.0); MCV 93.3 fL (80.0-100.0); Mean Platelet Volume 7.6; Monocytes # (A) 0.3 k/uL (0-1.0); Monocytes % (A) 7 %; Neutrophils # (A) 2.3 k/uL (1.3-7.7); Neutrophils % (A) 53 %; Platelet Count 138 k/uL (150-450); RBC 4.29 m/uL (4.30-5.90); RDW 17.2 % (11.5-15.5); WBC 4.4 k/uL (3.8-10.6)
[2018-04-28 06:55] LABS: ALT 33 U/L (21-72); AST 48 U/L (17-59); Albumin 3.7 g/dL (3.5-5.0); Alkaline Phosphatase 84 U/L (38-126); Anion Gap 9 mmol/L; Blood Urea Nitrogen 15 mg/dL (9-20); Calcium 9.4 mg/dL (8.4-10.2); Carbon Dioxide 22 mmol/L (22-30); Chloride 108 mmol/L (98-107); Glucose 95 mg/dL (74-99); Potassium 4.2 mmol/L (3.5-5.1); Sodium 139 mmol/L (137-145); Total Bilirubin 0.5 mg/dL (0.2-1.3); Total Protein 7.4 g/dL (6.3-8.2)
[2018-04-28] MEDS: INSULIN ASPART 100 UNIT/ML 1 ML 10 ML VIAL SQ SCH ×2 (08:09→11:51)
[2018-04-28] MEDS: cloNIDine HCL 0.1 MG TAB PO SCH (08:15)
[2018-04-28] MEDS: metFORMIN 500 MG TAB PO SCH (08:15)
[2018-04-28] MEDS: THIAMINE 100 MG TAB PO SCH (08:15)
[2018-04-28] MEDS: NADOLOL 20 MG TAB PO SCH (08:16)
[2018-04-28] MEDS: MULTIVITAMINS, THERA 1 EACH TAB PO SCH (08:16)
[2018-04-28] MEDS: FERROUS SULFATE 325 MG TAB PO SCH (08:16)
[2018-04-28] MEDS: ASPIRIN 81 MG PO SCH (08:16)
[2018-04-28] MEDS: CHOLECALCIFEROL 1,000 UNIT TAB PO SCH (08:16)
[2018-04-28 08:18] VITALS: TEMP 97.5
[2018-04-28 11:28] LABS: Glucose,Whole Blood 97 mg/dL (75-99)
[2018-04-28 12:05] VITALS: BP 140/88; PULSE 70
--- NOTE | 2018-04-28 13:33 | P.DS ---
Providers Date of admission: 04/24/18 14:57 Expected date of discharge: 04/28/18 Attending physician: Charlette Finney Primary care physician: Yoon Phillips Hospital Course: Discharge diagnosis 1. Tachycardia with palpitations likely due to a call withdrawal. EKGcompleted showing sinus tachycardia. Minimal voltage criteria for LVH, maybe normal variant. Borderline EKG. CTA completed and was negative for PE. Heart rate significantly improved normal sinus rhythm on telemetry heart rate in the 80s. 2. Alcohol withdrawal. Patient's last known drink was 4 days prior per patient. CIWA protocal has been ordered. Continue thiamine. Patient will be DC 'd on by mouth Ativan when necessary for a culture patient educated on the importance patient. Patient to follow-up with the 3. History of proximal atrial fibrillation on anticoagulation due to history of esophageal varices 4. History of esophageal varices per EGD and ligation on 10/21/2017 5. History of pulmonary embolism 6. Diabetes mellitus type 2. Metformin resumed 7. Iron deficiency anemia 8. Essential hypertension 9. History of TIA 10. Chronic liver cirrhosis with secondary portal hypertension 11. History of COPD no exacerbation at this time 12. Vitamin D deficiency 13. Chronic thrombocytopenia due to patient's liver disease. Platelets currently 127 14. Recent upper left tooth infection. Patient was treated outpatient antibiotics and advised to follow-up closely with dental services. Patient reports he has yet to follow-up with dental services but denies any complaints at this time no facial swelling noted 15. Abdominal pain. Patient recently had EGD completed with Dr. Ramirez in December of this year EGD completed showing gastritis with no evidence of hiatal hernia and mild esophagitis. Amylase and lipase levels within normal limits. Pain has resolved 16. Burning with urination. UA negative 17. TSH 0.357. Patient advised to follow-up closely with PCP Hospital course This is a 63-year-old patient of Dr. Phillips well-known to my services. Patient presented with complaints of palpitations and overall discomfort. Patient states his last drink was 4 days ago patient has known EtOH abuse. Patient does report that he's been trying to cut down on his alcohol consumption. Patient's additional medical history includes atrial fibrillation , chest pain, COPD, CVA, diabetes mellitus, GERD, GI bleed, hyperlipidemia, hypertension, pneumonia and pulmonary embolism patient also has a known history of chronic alcoholic cirrhosis with portal hypertension. History of GI bleeding with esophageal varices. EKG completed showing sinus tachycardia minimal voltage criteria for LVH may be normal variant. Borderline EKG. CTA completed showing no pulmonary embolism. Patient started on alcohol withdrawal protocol. Home meds resumed. At this time patient denies any chest pain or shortness of breath. Patient is complaining of overall discomfort. Patient denies nausea vomiting or diarrhea. Patient denies any urinary burning or frequency. On 04/26/2018 patient is alert and oriented sitting in bed. Patient is complaining of some abdominal pain with nausea. Will order amylase and lipase levels. Patient denies chest pain or shortness of breath. Patient still complaining of some burning with urination. Will order urinary analysis at this time. Patient remains on alcohol withdrawal protocol On 04/27/2018 patient is alert and oriented 3. Patient is currently resting comfortably in bed. Patient does report improvement with abdominal pain patient denies chest pain or shortness breath. Patient Denies nausea or vomiting. On 04/28/2018 patient is alert and oriented 3. Patient is resting comfortably in bed. Patient states abdominal pain has significantly improved. Patient denies nausea or vomiting. Patient denies chest pain or shortness breath. Patient does feel like he is ready for discharge. Patient educated on the importance of complete alcohol cessation. Patient will be DC'd on Ativan when necessary for alcohol withdrawal for 3 days. Patient to follow-up closely with PCP I performed an examination of the patient and discussed their management with the Nurse Practitioner. I have reviewed the Nurse Practitioner's notes and agree with the documented findings and plan of care Patient Condition at Discharge: Stable Plan - Discharge Summary New Discharge Prescriptions: New LORazepam [Ativan] 0.5 mg PO Q6HR PRN 3 Days #12 tab PRN Reason: Alcohol Withdrawal Continue metFORMIN HCL 1,000 mg PO BID Nadolol [Corgard] 20 mg PO DAILY #30 tab Cholecalciferol [Vitamin D3] 1,000 unit PO DAILY cloNIDine HCL [Catapres] 0.1 mg PO BID #60 tab Aspirin [Children's Aspirin] 81 mg PO DAILY #30 tab.chew Magnesium Oxide [Mag-Ox] 400 mg PO HS Pantoprazole [Protonix] 40 mg PO BID Folic Acid 1 mg PO DAILY Ferrous Sulfate [Iron (65 MG Elemental)] 325 mg PO DAILY Discharge Medication List metFORMIN HCL 1,000 mg PO BID 09/23/17 [History] Nadolol [Corgard] 20 mg PO DAILY #30 tab 11/11/17 [Rx] Cholecalciferol [Vitamin D3] 1,000 unit PO DAILY 01/06/18 [History] Aspirin [Children's Aspirin] 81 mg PO DAILY #30 tab.chew 03/26/18 [Rx] cloNIDine HCL [Catapres] 0.1 mg PO BID #60 tab 03/26/18 [Rx] Ferrous Sulfate [Iron (65 MG Elemental)] 325 mg PO DAILY 04/24/18 [History] Folic Acid 1 mg PO DAILY 04/24/18 [History] Magnesium Oxide [Mag-Ox] 400 mg PO HS 04/24/18 [History] Pantoprazole [Protonix] 40 mg PO BID 04/24/18 [History] LORazepam [Ativan] 0.5 mg PO Q6HR PRN 3 Days #12 tab 04/28/18 [Rx] Follow up Appointment(s)/Referral(s): [facility], [NON-STAFF] - Yoon Phillips DO [Primary Care Provider] - 05/02/18 1:00 pm (Wednesday at [place] office) Patient Instructions/Handouts: Alcohol Withdrawal (DC), Hypomagnesemia (DC), Tachycardia (ED) Activity/Diet/Wound Care/Special Instructions: Diet heart healthy Activity as tolerated Patient heavily educated on the importance of alcohol cessation Discharge Disposition: HOME SELF-CARE
== END 2018-04-28 15:14 | disposition home or self-care (01) ==
LOC: EC 10:06 → 3SCARD 14:57 → INTOOBSV 14:57 → 3SCARD 17:09 → UNDODISIN 04-28 15:14
PROVIDERS: ADMIT Internal Medicine; ATTEND Internal Medicine
DX: R00.2 Palpitations (principal); R00.0 Tachycardia, unspecified; F10.239 Alcohol dependence with withdrawal, unspecified; K76.6 Portal hypertension; J44.9 Chronic obstructive pulmonary disease, unspecified; D50.9 Iron deficiency anemia, unspecified; E11.9 Type 2 diabetes mellitus without complications; E55.9 Vitamin D deficiency, unspecified; D69.59 Other secondary thrombocytopenia; E78.5 Hyperlipidemia, unspecified; I48.0 Paroxysmal atrial fibrillation; F32.9 Major depressive disorder, single episode, unspecified; F41.9 Anxiety disorder, unspecified; I10 Essential (primary) hypertension; K21.9 Gastro-esophageal reflux disease without esophagitis; K70.30 Alcoholic cirrhosis of liver without ascites; R30.0 Dysuria; R10.9 Unspecified abdominal pain; M47.9 Spondylosis, unspecified; G89.29 Other chronic pain; M54.9 Dorsalgia, unspecified; M50.30 Other cervical disc degeneration, unspecified cervical region; E66.9 Obesity, unspecified; Z68.28 Body mass index [BMI] 28.0-28.9, adult; Z86.711 Personal history of pulmonary embolism; Z79.84 Long term (current) use of oral hypoglycemic drugs; Z79.899 Other long term (current) drug therapy; Z79.82 Long term (current) use of aspirin; Z91.012 Allergy to eggs; Z88.8 Allergy status to other drugs, medicaments and biological substances; Z91.018 Allergy to other foods; Z91.048 Other nonmedicinal substance allergy status; Z79.01 Long term (current) use of anticoagulants; Z86.73 Personal history of transient ischemic attack (TIA), and cerebral infarction without residual deficits; Z87.01 Personal history of pneumonia (recurrent); Z90.49 Acquired absence of other specified parts of digestive tract; Z86.19 Personal history of other infectious and parasitic diseases; Z87.19 Personal history of other diseases of the digestive system; Z81.8 Family history of other mental and behavioral disorders; Z83.6 Family history of other diseases of the respiratory system
CPT/HCPCS: 96376 ×4; 96365; 96366; 96361; 96375; 99285; 36415; 93005; 84439; 84481; 80053 ×5; 82150; 82550; 82553; 83690; 83735 ×2; 84443; 84484; 85025 ×5; 85610; 85730; 81003; 83036; 71275; G0378 ×5; G0480; J2060 ×4; J3475; Q9967; 80320; 96374

== ENCOUNTER 2018-05-03 05:59 | Inpatient (IN) | payer OTHER ==
[2018-05-03 06:32] LABS: Anisocytosis Slight; Basophils % (A) 0 %; Eosinophils # (A) 0.1 k/uL (0-0.7); Eosinophils % (A) 1 %; HCT 38.1 % (39.0-53.0); HGB 12.6 gm/dL (13.0-17.5); Lymphocytes # (A) 1.2 k/uL (1.0-4.8); Lymphocytes % (A) 21 %; MCH 30.7 pg (25.0-35.0); MCHC 33.1 g/dL (31.0-37.0); MCV 92.6 fL (80.0-100.0); Mean Platelet Volume 7.2; Monocytes # (A) 0.4 k/uL (0-1.0); Monocytes % (A) 7 %; Neutrophils % (A) 70 %; Platelet Count 134 k/uL (150-450); RBC 4.11 m/uL (4.30-5.90); RDW 17.1 % (11.5-15.5); WBC 5.8 k/uL (3.8-10.6)
[2018-05-03] MEDS ORDERED: SODIUM CHLORIDE 0.9% 500 ML 500 ML IV STA ×3 (06:35→08:21)
[2018-05-03] MEDS ORDERED: LORazepam 2 MG/ML INJ IV STA ×2 (06:36→07:45)
--- NOTE | 2018-05-03 06:40 | ED ---
General Adult HPI - General Source: EMS Mode of arrival: EMS Limitations: no limitations - History of Present Illness Onset/Timin -: hour(s) Severity scale (1-10): 0 Consistency: constant Improves with: none Worsens with: none Associated Symptoms: denies other symptoms, shortness of breath Treatments Prior to Arrival: none <Rubin Gomez - Last Filed: 05/03/18 07:47> <Nikita Noble - Last Filed: 05/03/18 10:07> - General Chief complaint: Chest Pain Stated complaint: heart racing Time Seen by Provider: 05/03/18 06:26 - History of Present Illness Initial comments: This patient is 63-year-old man who presents to be evaluated for what he is calling a racing heart. He states that he was lying in bed around 3:00 when he noticed that this was coming on. The patient states that he was also having a little bit of shortness of breath associated. He denies any chest pain. He states he has had this previously. (Rubin Gomez) - Related Data Home Medications Medication Instructions Recorded Confirmed metFORMIN HCL 1,000 mg PO BID 09/23/17 05/03/18 Cholecalciferol [Vitamin D3] 1,000 unit PO DAILY 01/06/18 05/03/18 Ferrous Sulfate [Iron (65 MG 325 mg PO DAILY 04/24/18 05/03/18 Elemental)] Folic Acid 1 mg PO DAILY 04/24/18 05/03/18 Magnesium Oxide [Mag-Ox] 400 mg PO HS 04/24/18 05/03/18 Pantoprazole [Protonix] 40 mg PO BID 04/24/18 05/03/18 Previous Rx's Medication Instructions Recorded Nadolol [Corgard] 20 mg PO DAILY #30 tab 11/11/17 Aspirin [Children's Aspirin] 81 mg PO DAILY #30 tab.chew 03/26/18 cloNIDine HCL [Catapres] 0.1 mg PO BID #60 tab 03/26/18 LORazepam [Ativan] 0.5 mg PO Q6HR PRN 3 Days #12 tab 04/28/18 Allergies Allergy/AdvReac Type Severity Reaction Status Date / Time adhesive tape Allergy Rash/Hives Verified 05/03/18 08:03 egg AdvReac Nausea & Verified 05/03/18 08:03 Vomiting lisinopril AdvReac EYES Verified 05/03/18 08:03 BURN&ITCH/WEAKNESS tomato AdvReac Nausea & Verified 05/03/18 08:03 Vomiting & Diarrhea Review of Systems ROS Other: All systems not noted in ROS Statement are negative. Constitutional: Denies: fever, chills, weakness Respiratory: Reports: dyspnea. Denies: cough Cardiovascular: Reports: palpitations. Denies: chest pain, orthopnea, edema, syncope Gastrointestinal: Denies: abdominal pain, nausea, vomiting Genitourinary: Denies: dysuria Musculoskeletal: Denies: back pain Skin: Denies: rash Neurological: Denies: headache, weakness, numbness <Rubin Gomez - Last Filed: 05/03/18 07:47> ROS Other: All systems not noted in ROS Statement are negative. <Nikita Noble - Last Filed: 05/03/18 10:07> ROS Statement: Those systems with pertinent positive or pertinent negative responses have been documented in the HPI. Past Medical History Past Medical History: Atrial Fibrillation, Chest Pain / Angina, COPD, CVA/TIA, Diabetes Mellitus, GERD/Reflux, GI Bleed, Hyperlipidemia, Hypertension, Pneumonia, Pulmonary Embolus (PE) Additional Past Medical History / Comment(s): Alcoholism, chronic alcoholic cirrhosis with portal hypertension and previous history of GI bleeding, esophageal varices, diabetes mellitus, hypertension, hyperlipidemia, previous history of childhood seizure which he outgrew not taking any antiepileptic medication, history of atrial fibrillation, history of pulmonary embolism, hypertension, hyperlipidemia, previous history of GI bleed, previous history of CVA without any residual deficits. He also has history of diverticulosis, chronic lower extremity ankle edema, previous history of septicemia, cervical disc disease with chronic back pain, degenerative arthritis involving the lower back, tinnitus History of Any Multi-Drug Resistant Organisms: None Reported Past Surgical History: Appendectomy, Cholecystectomy Additional Past Surgical History / Comment(s): 07/20/17 EGD, 03/21/17 EGD/ colonoscopy, other colonoscopies. Past Anesthesia/Blood Transfusion Reactions: No Reported Reaction Additional Past Anesthesia/Blood Transfusion Reaction / Comment(s): after appendix removed sob Past Psychological History: Anxiety, Depression Smoking Status: Never smoker Past Alcohol Use History: Occasional Past Drug Use History: None Reported - Past Family History Mother Family Medical History: COPD, CVA/TIA, Dementia Additional Family Medical History / Comment(s): from a stroke Father Family Medical History: Pneumonia Additional Family Medical History / Comment(s): Father of pneumonia when he was close to 80 yrs old. <Rubin Gomez - Last Filed: 05/03/18 07:47> General Exam Limitations: no limitations General appearance: alert, in no apparent distress Head exam: Present: atraumatic, normocephalic Eye exam: Present: normal appearance. Absent: scleral icterus, conjunctival injection ENT exam: Present: normal oropharynx Neck exam: Present: normal inspection Respiratory exam: Present: wheezes, decreased breath sounds. Absent: respiratory distress, rales, rhonchi, stridor, accessory muscle use Cardiovascular Exam: Present: normal rhythm, tachycardia, normal heart sounds. Absent: systolic murmur, diastolic murmur, rubs, gallop GI/Abdominal exam: Present: soft. Absent: distended, tenderness, guarding, rebound, rigid, mass Extremities exam: Present: normal inspection, normal capillary refill. Absent: pedal edema, calf tenderness Back exam: Present: normal inspection. Absent: CVA tenderness (R), CVA tenderness (L) Neurological exam: Present: alert Skin exam: Present: warm, dry, intact, normal color. Absent: rash <Rubin Gomez - Last Filed: 05/03/18 07:47> Course <Rubin Gomez - Last Filed: 05/03/18 07:47> <Nikita Noble - Last Filed: 05/03/18 10:07> Vital Signs 05/03/18 05/03/18 05/03/18 06:02 07:17 07:20 Temperature 98.0 F Pulse Rate 137 H 131 H 131 H Respiratory 19 18 20 Rate Blood Pressure 180/109 175/103 175/103 O2 Sat by Pulse 95 95 95 Oximetry 05/03/18 05/03/18 05/03/18 07:40 08:00 08:20 Temperature Pulse Rate 133 H 130 H 129 H Respiratory 20 20 20 Rate Blood Pressure 168/104 181/105 173/108 O2 Sat by Pulse 95 94 L 95 Oximetry 05/03/18 05/03/18 05/03/18 08:29 08:37 08:40 Temperature Pulse Rate 120 H 124 H 128 H Respiratory 20 Rate Blood Pressure 176/110 O2 Sat by Pulse 96 Oximetry 05/03/18 05/03/18 05/03/18 08:43 09:00 09:20 Temperature Pulse Rate 128 H 129 H 126 H Respiratory 20 20 Rate Blood Pressure 167/97 155/98 O2 Sat by Pulse 96 94 L Oximetry 05/03/18 09:40 Temperature Pulse Rate 130 H Respiratory 20 Rate Blood Pressure 160/98 O2 Sat by Pulse 96 Oximetry - Reevaluation(s) Reevaluation #1: 05/03/18 10:[address] Finney, Dr. Finney is spoken with regarding admission. (Nikita Noble) Reevaluation #2: 05/03/18 10:06 Patient given multiple doses of medication to help control heart rate and blood pressure, unsuccessful (Nikita Noble) EKG Findings - EKG Results: EKG: interpreted by ERMD, sinus rhythm, normal axis, normal QRS, normal ST/T EKG shows: tachycardia (Rate 137 bpm) <Rubin Gomez - Last Filed: 05/03/18 07:47> Medical Decision Making - Lab Data Result diagrams: 05/03/18 06:11 05/03/18 06:11 <Rubin Gomez - Last Filed: 05/03/18 07:47> - Lab Data Result diagrams: 05/03/18 06:11 05/03/18 06:11 <Nikita Noble - Last Filed: 05/03/18 10:07> - Medical Decision Making 63 male the ER for eversion of hypertensive emergency or urgency with tachycardia, patient will be admitted for electrolyte monitoring and hemodynamic status (Nikita Noble) - Lab Data Lab Results 05/03/18 05/03/18 05/03/18 Range/Units 06:11 06:11 06:11 WBC 5.8 (3.8-10.6) k/uL RBC 4.11 L (4.30-5.90) m/uL Hgb 12.6 L (13.0-17.5) gm/dL Hct 38.1 L (39.0-53.0) % MCV 92.6 (80.0-100.0) fL MCH 30.7 (25.0-35.0) pg MCHC 33.1 (31.0-37.0) g/dL RDW 17.1 H (11.5-15.5) % Plt Count 134 L (150-450) k/uL Neutrophils % 70 % Lymphocytes % 21 % Monocytes % 7 % Eosinophils % 1 % Basophils % 0 % Neutrophils # 4.0 (1.3-7.7) k/uL Lymphocytes # 1.2 (1.0-4.8) k/uL Monocytes # 0.4 (0-1.0) k/uL Eosinophils # 0.1 (0-0.7) k/uL Basophils # 0.0 (0-0.2) k/uL Anisocytosis Slight PT (9.0-12.0) sec INR (<1.2) APTT (22.0-30.0) sec Sodium 144 (137-145) mmol/L Potassium 4.0 (3.5-5.1) mmol/L Chloride 105 (98-107) mmol/L Carbon Dioxide 24 (22-30) mmol/L Anion Gap 15 mmol/L BUN 14 (9-20) mg/dL Creatinine 0.74 (0.66-1.25) mg/dL Est GFR (CKD-EPI)AfAm >90 (>60 ml/min/1.73 sqM) Est GFR (CKD-EPI)NonAf >90 (>60 ml/min/1.73 sqM) Glucose 130 H (74-99) mg/dL Calcium 9.4 (8.4-10.2) mg/dL Magnesium 1.3 L (1.6-2.3) mg/dL Total Bilirubin 0.7 (0.2-1.3) mg/dL AST 65 H (17-59) U/L ALT 38 (21-72) U/L Alkaline Phosphatase 108 (38-126) U/L Total Creatine Kinase 101 (55-170) U/L CK-MB (CK-2) 0.4 (0.0-2.4) ng/mL CK-MB (CK-2) Rel Index 0.4 Troponin I <0.012 (0.000-0.034) ng/mL Total Protein 7.9 (6.3-8.2) g/dL Albumin 4.1 (3.5-5.0) g/dL 12/18/18 Range/Units 06:11 WBC (3.8-10.6) k/uL RBC (4.30-5.90) m/uL Hgb (13.0-17.5) gm/dL Hct (39.0-53.0) % MCV (80.0-100.0) fL MCH (25.0-35.0) pg MCHC (31.0-37.0) g/dL RDW (11.5-15.5) % Plt Count (150-450) k/uL Neutrophils % % Lymphocytes % % Monocytes % % Eosinophils % % Basophils % % Neutrophils # (1.3-7.7) k/uL Lymphocytes # (1.0-4.8) k/uL Monocytes # (0-1.0) k/uL Eosinophils # (0-0.7) k/uL Basophils # (0-0.2) k/uL Anisocytosis PT 11.4 (9.0-12.0) sec INR 1.1 (<1.2) APTT 23.2 (22.0-30.0) sec Sodium (137-145) mmol/L Potassium (3.5-5.1) mmol/L Chloride (98-107) mmol/L Carbon Dioxide (22-30) mmol/L Anion Gap mmol/L BUN (9-20) mg/dL Creatinine (0.66-1.25) mg/dL Est GFR (CKD-EPI)AfAm (>60 ml/min/1.73 sqM) Est GFR (CKD-EPI)NonAf (>60 ml/min/1.73 sqM) Glucose (74-99) mg/dL Calcium (8.4-10.2) mg/dL Magnesium (1.6-2.3) mg/dL Total Bilirubin (0.2-1.3) mg/dL AST (17-59) U/L ALT (21-72) U/L Alkaline Phosphatase (38-126) U/L Total Creatine Kinase (55-170) U/L CK-MB (CK-2) (0.0-2.4) ng/mL CK-MB (CK-2) Rel Index Troponin I (0.000-0.034) ng/mL Total Protein (6.3-8.2) g/dL Albumin (3.5-5.0) g/dL Disposition <Rubin Gomez - Last Filed: 05/03/18 07:47> Is patient prescribed a controlled substance at d/c from ED?: No <Nikita Noble - Last Filed: 05/03/18 10:07> Clinical Impression: Atypical chest pain, Tachycardia, SVT (supraventricular tachycardia), Hypomagnesemia, Hypertension, ETOH abuse Disposition: ADMITTED IP TO THIS HOSP Condition: Fair Referrals: Yoon Phillips DO [Primary Care Provider] - 1-2 days
[2018-05-03 06:46] LABS: ALT 38 U/L (21-72); AST 65 U/L (17-59); Albumin 4.1 g/dL (3.5-5.0); Alkaline Phosphatase 108 U/L (38-126); Anion Gap 15 mmol/L; Blood Urea Nitrogen 14 mg/dL (9-20); Calcium 9.4 mg/dL (8.4-10.2); Carbon Dioxide 24 mmol/L (22-30); Chloride 105 mmol/L (98-107); Glucose 130 mg/dL (74-99); Magnesium 1.3 mg/dL (1.6-2.3); Sodium 144 mmol/L (137-145); Total Bilirubin 0.7 mg/dL (0.2-1.3); Total Protein 7.9 g/dL (6.3-8.2)
[2018-05-03 06:49] LABS: INR 1.1 (<1.2); Partial Thromboplastin Time 23.2 sec (22.0-30.0); Prothrombin Time 11.4 sec (9.0-12.0)
[2018-05-03 06:53] LABS: Creatine Kinase 101 U/L (55-170)
--- NOTE | 2018-05-03 07:03 | XR ---
EXAMINATION TYPE: XR chest 2V DATE OF EXAM: 05/03/2018 COMPARISON: 03/22/2018 HISTORY: Tachycardia and chest pain TECHNIQUE: Frontal and lateral views of the chest are obtained. FINDINGS: There is redemonstration of an enlarged cardiac silhouette and leftward mediastinal shift similar to the prior mostly due to rotation and patient positioning. No new focal consolidation, pleu ral effusion or pneumothorax is seen. Mild multilevel degenerative changes of the thoracic spine are noted. T4 compression deformity is similar to priors. IMPRESSION: Chronic left hemithorax volume loss and cardiomegaly with leftward mediastinal shift, al l unchanged from the prior. No acute cardiopulmonary process.
[2018-05-03 07:06] LABS: Creatine Kinase MB 0.4 ng/mL (0.0-2.4); Troponin I <0.012 ng/mL (0.000-0.034)
[2018-05-03] MEDS ORDERED: MAGNESIUM SULFATE-D5W PMX 1 GM in DEXTROSE/WATER 1 100ML.BAG IVPB ONE (07:20)
[2018-05-03] MEDS ORDERED: predniSONE 20 MG TAB PO STA (07:45)
[2018-05-03] MEDS ORDERED: ALBUTEROL NEBULIZED 2.5 MG/3 ML INHALATION STA (07:45)
[2018-05-03] MEDS ORDERED: DIAZEPAM 5 MG/ML 2 ML INJ IVP STA (08:21)
[2018-05-03] MEDS ORDERED: IPRATROPIUM-ALBUTEROL 3 ML NEB INHALATION STA (08:22)
[2018-05-03] MEDS ORDERED: hydrALAZINE HCL 20 MG/ML 1 ML VIAL IVP STA (08:22)
[2018-05-03] MEDS ORDERED: NITROGLYCERIN SL TABS 0.4 MG TAB SUBLINGUAL PRN (10:01)
[2018-05-03] MEDS ORDERED: LORazepam 2 MG/ML INJ IV PRN ×2 (10:04)
[2018-05-03] MEDS ORDERED: THIAMINE 100 MG/ML 2 ML VIAL IM STA (10:04)
[2018-05-03 12:06] LABS: Creatine Kinase 107 U/L (55-170)
[2018-05-03] MEDS ORDERED: BUTALB/APAP/CAFF 50-325-40MG TAB PO PRN (12:14)
[2018-05-03 12:19] LABS: Creatine Kinase MB 0.4 ng/mL (0.0-2.4); Troponin I <0.012 ng/mL (0.000-0.034)
[2018-05-03] MEDS: DEXTROSE 5%-0.45% NACL 1,000 ML IV SCH ×2 (12:25→23:40)
[2018-05-03] MEDS: cloNIDine HCL 0.1 MG TAB PO SCH ×2 (12:35→21:32)
[2018-05-03] MEDS: SODIUM CHLORIDE 0.9% 1,000 ML IV SCH ×2 (12:36→21:23)
[2018-05-03] MEDS: NADOLOL 20 MG TAB PO SCH (13:09)
[2018-05-03] MEDS: PANTOPRAZOLE 40 MG TABLET PO SCH ×2 (13:09→16:56)
--- NOTE | 2018-05-03 14:17 | P.HPIM ---
History of Present Illness H&P Date: 05/03/18 Chief Complaint: Heart palpitations This is a 63-year-old male, patient of [facility]. He has a known past medical history of alcohol abuse, alcoholic liver cirrhosis with portal hypertension, esophageal varices with previous GI bleed, paroxysmal atrial fibrillation not on anticoagulation due to GI bleed, diabetes mellitus, CVA and PE. Patient has had previous hospitalizations due to alcohol withdrawal. Patient presents to the emergency room with complaints that his heart was racing and he had a headache around 3:00 this morning. Patient was found to have elevated blood pressures 180/109. Given IV hydralazine in the ER. Patient also given IV Ativan for alcohol withdrawal. Patient reports his last alcoholic drink was about 4 days ago. Patient was tachycardic with a heart rate of 137 on EKG. First troponin was negative. Patient does complain of some chest pains. Also having some vision changes. Denies any nausea vomiting. Denies any bowel movement changes. Denies any burning with urination. Denies any fever chills or sweats. Denies any cough. Does admit to some shortness of breath. Patient's home blood pressure medications were restarted with the Catapres and Cogard. We'll continue to monitor blood pressure and heart rate. Chest x-ray showing a chronic left hemithorax volume loss and cardiomegaly with leftward mediastinal shift all unchanged from the prior. No acute cardiopulmonary process. Patient started on the CIWA protocol with Ativan multivitamin and thiamine. Continue with IV fluids. Review of Systems Please refer to HPI otherwise unremarkable Past Medical History Past Medical History: Atrial Fibrillation, Chest Pain / Angina, COPD, CVA/TIA, Diabetes Mellitus, GERD/Reflux, GI Bleed, Hyperlipidemia, Hypertension, Pneumonia, Pulmonary Embolus (PE) Additional Past Medical History / Comment(s): Alcoholism, chronic alcoholic cirrhosis with portal hypertension and previous history of GI bleeding, esophageal varices, diabetes mellitus, hypertension, hyperlipidemia, previous history of childhood seizure which he outgrew not taking any antiepileptic medication, history of atrial fibrillation, history of pulmonary embolism, hypertension, hyperlipidemia, previous history of GI bleed, previous history of CVA without any residual deficits. He also has history of diverticulosis, chronic lower extremity ankle edema, previous history of septicemia, cervical disc disease with chronic back pain, degenerative arthritis involving the lower back, tinnitus History of Any Multi-Drug Resistant Organisms: None Reported Past Surgical History: Appendectomy, Cholecystectomy Additional Past Surgical History / Comment(s): 07/20/17 EGD, 03/21/17 EGD/ colonoscopy, other colonoscopies. Past Anesthesia/Blood Transfusion Reactions: No Reported Reaction Additional Past Anesthesia/Blood Transfusion Reaction / Comment(s): after appendix removed sob Past Psychological History: Anxiety, Depression Additional Psychological History / Comment(s): Pt lives in an apartment alone in [facility]. Apartment complex has front door ramp and has an elevator. no pets. Sometimes his sister stays with him and cleans his home. He uses a cane to ambulate at times. He drives but currently has no car. He gets to [employer] by [employer] bus. He has a nebulizer. Used to work in [employer]. Relates that he's not been a smoker. Denies recreational drug use. His left him many years ago he has adult children that he does not see very often. No experience. No travel history. No animal exposures Smoking Status: Never smoker Past Alcohol Use History: Occasional Additional Past Alcohol Use History / Comment(s): Pt stated when he was younger he drank heavy but had cut down to occ. pt stated he is trying to quit Past Drug Use History: None Reported - Past Family History Mother Family Medical History: COPD, CVA/TIA, Dementia Additional Family Medical History / Comment(s): from a stroke Father Family Medical History: Pneumonia Additional Family Medical History / Comment(s): Father of pneumonia when he was close to 80 yrs old. Medications and Allergies Home Medications Medication Instructions Recorded Confirmed Type metFORMIN HCL 1,000 mg PO BID 09/23/17 05/03/18 History Nadolol [Corgard] 20 mg PO DAILY #30 tab 11/11/17 05/03/18 Rx Cholecalciferol [Vitamin D3] 1,000 unit PO DAILY 01/06/18 05/03/18 History Aspirin [Children's Aspirin] 81 mg PO DAILY #30 tab.chew 03/26/18 05/03/18 Rx cloNIDine HCL [Catapres] 0.1 mg PO BID #60 tab 03/26/18 05/03/18 Rx Ferrous Sulfate [Iron (65 MG 325 mg PO DAILY 04/24/18 05/03/18 History Elemental)] Folic Acid 1 mg PO DAILY 04/24/18 05/03/18 History Magnesium Oxide [Mag-Ox] 400 mg PO HS 04/24/18 05/03/18 History Pantoprazole [Protonix] 40 mg PO BID 04/24/18 05/03/18 History LORazepam [Ativan] 0.5 mg PO Q6HR PRN 3 Days #12 tab 04/28/18 05/03/18 Rx Allergies Allergy/AdvReac Type Severity Reaction Status Date / Time adhesive tape Allergy Rash/Hives Verified 05/03/18 08:03 egg AdvReac Nausea & Verified 05/03/18 08:03 Vomiting lisinopril AdvReac EYES Verified 05/03/18 08:03 BURN&ITCH/WEAKNESS tomato AdvReac Nausea & Verified 05/03/18 08:03 Vomiting & Diarrhea Physical Exam Vitals: Vital Signs Temp Pulse Pulse Resp BP BP Pulse Ox 05/03/18 11:45 98.3 F 134 H 18 178/113 97 05/03/18 10:00 135 H 20 169/98 96 05/03/18 09:40 130 H 20 160/98 96 05/03/18 09:20 126 H 20 155/98 94 L 05/03/18 09:00 129 H 20 167/97 96 05/03/18 08:43 128 H 05/03/18 08:40 128 H 20 176/110 96 05/03/18 08:37 124 H 05/03/18 08:29 120 H 05/03/18 08:20 129 H 20 173/108 95 05/03/18 08:00 130 H 20 181/105 94 L 05/03/18 07:40 133 H 20 168/104 95 05/03/18 07:20 131 H 20 175/103 95 05/03/18 07:17 131 H 18 175/103 95 05/03/18 06:02 98.0 F 137 H 19 180/109 95 Intake and Output 05/02/18 05/03/18 05/03/18 22:59 06:59 14:59 Intake Total 100 Output Total 700 Balance -600 Intake: IV 100 Sodium Chloride 0.9% 1, 100 000 ml @ 100 mls/hr IV . Q10H [facility] Rx#:[id number] Output: Urine 700 Other: Weight 74.389 kg Head normocephalic Neck supple Lungs clear to auscultation bilaterally no wheezing or crackles Heart tachycardic Abdomen is soft nontender nondistended positive bowel sounds no hepatosplenomegaly Extremities no edema Neuro alert and orientated to 3 Results CBC & Chem 7: 05/03/18 06:11 05/03/18 06:11 Labs: Abnormal Lab Results - Last 24 Hours (Table) 05/03/18 05/03/18 Range/Units 06:11 06:11 RBC 4.11 L (4.30-5.90) m/uL Hgb 12.6 L (13.0-17.5) gm/dL Hct 38.1 L (39.0-53.0) % RDW 17.1 H (11.5-15.5) % Plt Count 134 L (150-450) k/uL Glucose 130 H (74-99) mg/dL Magnesium 1.3 L (1.6-2.3) mg/dL AST 65 H (17-59) U/L Assessment and Plan Assessment: 1. Heart palpitations: With EKGs showing sinus tachycardia heart rate of 137. Possibly related to alcohol withdrawal. Also patient did not take his beta madeline this morning. Continue with telemetry monitoring. Continue with IV fluids. Restart beta madeline 2. Chest pain: First troponin negative. Continue monitoring cardiac enzymes. Consult cardiology 3. Hypertensive urgency: Patient did receive IV hydralazine in the ER. Resume patient's Catapres and Corgard. Consult cardiology 4. Alcohol withdrawal: Start Ativan per CINE protocol. Continue thiamine and multivitamin. Consult social work. Check alcohol level 5. Chronic left hemothorax volume loss and cardiomegaly with leftward mediastinal shift all unchanged from prior. No acute pulmonary process. Noted on chest x-ray. Will consult pulmonary service 6. History of alcohol liver cirrhosis with portal hypertension 7. History of esophageal varices with an EGD and ligation on 10/21/2017 8. History of pulmonary embolism 9. History of diabetes mellitus type 2 10. History of paroxysmal atrial fibrillation not on anticoagulation due to history of bleeding esophageal varices 11. History of COPD no evidence of exacerbation at this time 12. Hypomagnesemia patient received magnesium supplement and repeat magnesium level in a.m. 13. Chronic thrombocytopenia due to liver disease. Platelet count 134. DVT prophylaxis Lovenox Time with Patient: Greater than 30 (Greater than 50% of the total time spent in counseling and coordination of care.I performed an examination of the patient and discussed their management with the physician Newspaper Delivery Driver. I have reviewed the Physician Newspaper Delivery Driver's notes and agree with the documented findings and plan of care)
[2018-05-03] MEDS ORDERED: IPRATROPIUM-ALBUTEROL 3 ML NEB INHALATION PRN (15:58)
--- NOTE | 2018-05-03 16:08 | P.CNPUL ---
History of Present Illness Consult date: 05/03/18 Requesting physician: Charlette Finney Reason for consult: cough, COPD, other Chief complaint: Palpitations, heart racing, some cough and phlegm production History of present illness: This is a 63-year-old white male patient of Dr. Phillips with past medical history of atrial fibrillation, COPD, CVA/TIA, diabetes mellitus, GERD, hypertension, hyperlipidemia, previous episode of pulmonary embolus, chronic EtOH use, with chronic alcoholic cirrhosis with portal hypertension and previous history of GI bleeding, esophageal varices, diverticulosis, anxiety and depression. He was brought to the emergency department on 05/03/2018 for evaluation of palpitation, sensation of heart racing. He did have some increased cough and phlegm production, and some hot flashes prior to that. EKG and emergency department showed a sinus tachycardia with a rate of 134, chest x- ray showed chronic left hemithorax volume loss, cardiomegaly, mild fluid overload. Patient is not on oxygen at home, he is not on any inhalers. He states his last drink was 3 days ago, he had 2 large beers. Lab work revealed WBC of 5.8, hemoglobin of 12.6, INR 1.1, electrolytes and renal profile were all within normal limits, magnesium was 1.3, AST was 65, ALT and alk phos were within normal limits, troponins were negative 2, serum alcohol level was less than 10. The patient has been afebrile, pulse ox 93%. He is fairly comfortable , he seen in the emergency department resting on the gurney, in no acute distress, currently his rate is better controlled, he remains in sinus mechanism with a rate of 103 BPM. Lung sounds are positive for diffuse rales at bilateral bases, no wheezing or rhonchi noted. Review of Systems All systems: negative Constitutional: Denies chills, Denies fever Eyes: denies blurred vision, denies pain Ears, nose, mouth and throat: Denies headache, Denies sore throat Cardiovascular: Reports palpitations, Reports rapid heart beat, Denies chest pain, Denies shortness of breath Respiratory: Denies cough Gastrointestinal: Denies abdominal pain, Denies diarrhea, Denies nausea, Denies vomiting Musculoskeletal: Denies myalgias Integumentary: Denies pruritus, Denies rash Neurological: Denies numbness, Denies weakness Psychiatric: Denies anxiety, Denies depression Endocrine: Denies fatigue, Denies weight change Past Medical History Past Medical History: Atrial Fibrillation, Chest Pain / Angina, COPD, CVA/TIA, Diabetes Mellitus, GERD/Reflux, GI Bleed, Hyperlipidemia, Hypertension, Pneumonia, Pulmonary Embolus (PE) Additional Past Medical History / Comment(s): Pt recently admitted to [facility] on with tachycardia/palpitations likely d/t alcohol withdrawal. Other hx : Alcoholism, chronic alcoholic cirrhosis with portal hypertension and previous history of upper and lower GI bleeding, esophageal varices, previous history of childhood seizure which he outgrew not taking any antiepileptic medication-possibly had recent seizure-2018 thought d/t alcohol withdrawal, pulmonary embolism x 2 R lung, TIA, diverticulosis, chronic lower bilateral extremity ankle edema if he walks alot, previous history of septicemia, cervical disc disease with chronic back pain with r sided sciatica, degenerative arthritis involving the lower back, tinnitus, vitamin D deficiency , iron anemia, chronic thrombocytopenia. History of Any Multi-Drug Resistant Organisms: None Reported Past Surgical History: Appendectomy, Cholecystectomy Additional Past Surgical History / Comment(s): EGDs/esophageal varicies bandings , colonoscopies. Past Anesthesia/Blood Transfusion Reactions: No Reported Reaction Additional Past Anesthesia/Blood Transfusion Reaction / Comment(s): after appendix removed sob Smoking Status: Never smoker - Past Family History Mother Family Medical History: COPD, CVA/TIA, Dementia Additional Family Medical History / Comment(s): from a stroke Father Family Medical History: Pneumonia Additional Family Medical History / Comment(s): Father of pneumonia when he was close to 80 yrs old. Medications and Allergies Home Medications Medication Instructions Recorded Confirmed Type metFORMIN HCL 1,000 mg PO BID 09/23/17 05/03/18 History Nadolol [Corgard] 20 mg PO DAILY #30 tab 11/11/17 05/03/18 Rx Cholecalciferol [Vitamin D3] 1,000 unit PO DAILY 01/06/18 05/03/18 History Aspirin [Children's Aspirin] 81 mg PO DAILY #30 tab.chew 03/26/18 05/03/18 Rx cloNIDine HCL [Catapres] 0.1 mg PO BID #60 tab 03/26/18 05/03/18 Rx Ferrous Sulfate [Iron (65 MG 325 mg PO DAILY 04/24/18 05/03/18 History Elemental)] Folic Acid 1 mg PO DAILY 04/24/18 05/03/18 History Magnesium Oxide [Mag-Ox] 400 mg PO HS 04/24/18 05/03/18 History Pantoprazole [Protonix] 40 mg PO BID 04/24/18 05/03/18 History LORazepam [Ativan] 0.5 mg PO Q6HR PRN 3 Days #12 tab 04/28/18 05/03/18 Rx Allergies Allergy/AdvReac Type Severity Reaction Status Date / Time adhesive tape Allergy Rash/Hives Verified 05/03/18 08:03 egg AdvReac Nausea & Verified 05/03/18 08:03 Vomiting lisinopril AdvReac EYES Verified 05/03/18 08:03 BURN&ITCH/WEAKNESS tomato AdvReac Nausea & Verified 05/03/18 08:03 Vomiting & Diarrhea Physical Exam Vitals: Vital Signs Temp Pulse Pulse Resp BP BP Pulse Ox 05/03/18 14:17 98.2 F 103 H 18 154/98 93 L 05/03/18 11:45 98.3 F 134 H 18 178/113 97 05/03/18 10:00 135 H 20 169/98 96 05/03/18 09:40 130 H 20 160/98 96 05/03/18 09:20 126 H 20 155/98 94 L 05/03/18 09:00 129 H 20 167/97 96 05/03/18 08:43 128 H 05/03/18 08:40 128 H 20 176/110 96 05/03/18 08:37 124 H 05/03/18 08:29 120 H 05/03/18 08:20 129 H 20 173/108 95 05/03/18 08:00 130 H 20 181/105 94 L 05/03/18 07:40 133 H 20 168/104 95 05/03/18 07:20 131 H 20 175/103 95 05/03/18 07:17 131 H 18 175/103 95 05/03/18 06:02 98.0 F 137 H 19 180/109 95 Intake and Output 05/03/18 05/03/18 05/03/18 06:59 14:59 22:59 Intake Total 100 Output Total 700 Balance -600 Intake: IV 100 Sodium Chloride 0.9% 1, 100 000 ml @ 100 mls/hr IV . Q10H [facility] Rx#:[id number] Output: Urine 700 Other: Weight 74.389 kg GENERAL EXAM: Alert, active, comfortable in no apparent distress. HEAD: Normocephalic/atraumatic. EYES: Normal reaction of pupils, equal size. Conjunctiva pink, sclera white. NOSE: Clear with pink turbinates. THROAT: No erythema or exudates. NECK: No masses, no JVD, no thyroid enlargement, no adenopathy. CHEST: No chest wall deformity. Symmetrical expansion. LUNGS: Equal air entry with crackles at bilateral bases posteriorly, but no rhonchi or wheezes CVS: Regular rate and rhythm, normal S1 and S2, no gallops, no murmurs, no rubs ABDOMEN: Soft, nontender. No hepatosplenomegaly, normal bowel sounds, no guarding or rigidity. EXTREMITIES: No clubbing, no edema, no cyanosis, 2+ pulses and upper and lower extremities. MUSCULOSKELETAL: Muscle strength and tone normal. SPINE: No scoliosis or deformity SKIN: No rashes CENTRAL NERVOUS SYSTEM: Alert and oriented -3. No focal deficits, tone is normal in all 4 extremities. PSYCHIATRIC: Alert and oriented -3. Appropriate affect. Intact judgment and insight. Results - Laboratory Findings CBC and BMP: 05/03/18 06:11 05/03/18 06:11 PT/INR, D-dimer PT 11.4 sec (9.0-12.0) 05/03/18 06:11 INR 1.1 (<1.2) 05/03/18 06:11 Abnormal lab findings: Abnormal Labs 05/03/18 05/03/18 06:11 06:11 RBC 4.11 L Hgb 12.6 L Hct 38.1 L RDW 17.1 H Plt Count 134 L Glucose 130 H Magnesium 1.3 L AST 65 H - Diagnostic Findings Chest x-ray: report reviewed, image reviewed Additional studies: EKG noted Assessment and Plan Plan: Assessment: #1. Palpitations, sinus tachycardia, possibly related to alcohol withdrawal. EKG revealed sinus tachycardia with a rate of 134 BPM #2. History of COPD, currently stable #3. Mild fluid overload, noted on a chest x-ray, the patient denies any acute dyspnea #4. History of atrial fibrillation, currently in sinus mechanism #5. Daily EtOH use #6. History of chronic alcoholic cirrhosis with portal hypertension and previous history of GI bleeding #7. Diabetes mellitus #8. Should, hyperlipidemia #9. History of pulmonary embolism #10. History of CVA without any residual deficits #11. History of diverticulosis Plan: Patient COPD seems to be stable, today's chest x-ray was reviewed with Dr. Harkins , shows changes consistent with mild fluid overload, however clinically patient denies any dyspnea, no chest pain, room air pulse ox is 93%. Patient is still tachycardic, but the rate is better controlled, he remains in sinus mechanism. We'll can cut back his IV fluids. Maintain CIWA protocol, nebulized treatments , patient was given a dose of oral prednisone, not bronchospastic or congested. Labs were reviewed. I performed a history & physical examination of the patient and discussed their management with my nurse practitioner, Aline Collins. I reviewed the nurse practitioner's note and agree with the documented findings and plan of care. Lung sounds are positive for bibasilar crackles. The findings and the impression was discussed with the patient. I attest to the documentation by the nurse practitioner. Time with Patient: Greater than 30
[2018-05-03] MEDS: ASPIRIN 81 MG PO SCH (16:56)
[2018-05-03] MEDS: metFORMIN 500 MG TAB PO SCH (18:19)
[2018-05-03] MEDS: THIAMINE 100 MG TAB PO SCH (18:19)
[2018-05-03 19:49] LABS: Creatine Kinase 128 U/L (55-170)
[2018-05-03 20:01] LABS: Creatine Kinase MB 0.6 ng/mL (0.0-2.4); Troponin I <0.012 ng/mL (0.000-0.034)
[2018-05-03] MEDS: MAGNESIUM OXIDE 400 MG TAB PO SCH (21:32)
[2018-05-03 21:33] LABS: Glucose,Whole Blood 112 mg/dL (75-99)
[2018-05-04] MEDS: LORazepam 2 MG/ML INJ IV PRN ×2 (05:36→08:51)
[2018-05-04 05:46] LABS: Glucose,Whole Blood 111 mg/dL (75-99)
[2018-05-04 06:34] LABS: Anisocytosis Slight; Basophils % (A) 0 %; Eosinophils # (A) 0.1 k/uL (0-0.7); Eosinophils % (A) 2 %; HCT 36.3 % (39.0-53.0); HGB 11.6 gm/dL (13.0-17.5); Lymphocytes # (A) 1.9 k/uL (1.0-4.8); Lymphocytes % (A) 36 %; MCH 29.4 pg (25.0-35.0); MCHC 31.9 g/dL (31.0-37.0); MCV 92.3 fL (80.0-100.0); Mean Platelet Volume 7.6; Monocytes # (A) 0.4 k/uL (0-1.0); Monocytes % (A) 8 %; Neutrophils # (A) 2.8 k/uL (1.3-7.7); Neutrophils % (A) 53 %; Platelet Count 112 k/uL (150-450); RBC 3.94 m/uL (4.30-5.90); RDW 16.8 % (11.5-15.5); WBC 5.2 k/uL (3.8-10.6)
[2018-05-04 06:43] LABS: ALT 30 U/L (21-72); AST 52 U/L (17-59); Albumin 3.3 g/dL (3.5-5.0); Alkaline Phosphatase 81 U/L (38-126); Anion Gap 7 mmol/L; Blood Urea Nitrogen 13 mg/dL (9-20); Carbon Dioxide 27 mmol/L (22-30); Chloride 106 mmol/L (98-107); Cholesterol 225 mg/dL (<200); Glucose 112 mg/dL (74-99); HDL Cholesterol 63 mg/dL (40-60); LDL Cholesterol,Calculated 142 mg/dL (0-99); Magnesium 1.5 mg/dL (1.6-2.3); Potassium 3.3 mmol/L (3.5-5.1); Sodium 140 mmol/L (137-145); Total Bilirubin 1.6 mg/dL (0.2-1.3); Triglycerides 101 mg/dL (<150)
[2018-05-04] MEDS: metFORMIN 500 MG TAB PO SCH ×2 (06:58→16:09)
[2018-05-04] MEDS: PANTOPRAZOLE 40 MG TABLET PO SCH ×2 (06:58→16:09)
--- NOTE | 2018-05-04 08:28 | P.CRDCN ---
History of Present Illness Consult date: 05/04/18 Requesting physician: Charlette Finney Reason for Consult (text): Sinus tachycardia Chief complaint: Palpitations History of present illness: This is a 63-year-old gentleman with past medical history significant for hyperlipidemia, hypertension, diabetes, esophageal varices, paroxysmal atrial fibrillation, not on anticoagulation because of prior GI bleed, chronic alcohol abuse, alcoholic cirrhosis with portal hypertension and history of GI bleeding. No prior documented history of coronary artery disease. He had an echo cardiac gram with Doppler study performed in March of this year which revealed an ejection fraction of 55-60%. He also underwent a dobutamine echocardiographic study and November of this year which was negative for any reversible ischemia. Patient presents to the hospital on this occasion with symptoms of palpitations and feeling his heart racing very fast. He was found on admission here to have elevated blood pressures, 180/109 on arrival. He was given IV hydralazine on admission, and also given Ativan for alcohol withdrawal. Initial EKG on presentation here showed a sinus tachycardia with a heart rate of 130. Chest x-ray on admission here revealed chronic left hemithorax volume loss and cardiomegaly with leftward mediastinal shift unchanged from prior. Blood pressure 140/90 with a heart rate in the 60s, as stated previously his blood pressure on arrival was 180/109 with a heart rate in the 130s. White blood cell count is normal, hemoglobin 11.6, platelet count 112. Sodium 140, potassium 4.0 on admission, 3.3 this morning. Magnesium 1.3 on arrival, 1.5 this morning. Troponins are negative 3. Cholesterol 225, LDL 142, HDL 63, triglycerides 101. At the time of my examination this morning, patient denies any palpitations at present, he is complaining of a mild headache. States that he feels short of breath at times especially when lying flat. Past Medical History Past Medical History: Atrial Fibrillation, Cancer, Chest Pain / Angina, COPD, CVA/TIA, Diabetes Mellitus, GERD/Reflux, GI Bleed, Hyperlipidemia, Hypertension , Pneumonia, Prostate Disorder, Pulmonary Embolus (PE) Additional Past Medical History / Comment(s): Pt recently admitted to [facility] on with tachycardia/palpitations likely d/t alcohol withdrawal. Other hx : Alcoholism, chronic alcoholic cirrhosis with portal hypertension and previous history of upper and lower GI bleeding, esophageal varices, previous history of childhood seizure which he outgrew not taking any antiepileptic medication-possibly had recent seizure-2017 thought d/t alcohol withdrawal, pulmonary embolism x 2 R lung, TIA, diverticulosis, chronic lower bilateral extremity ankle edema if he walks alot, previous history of septicemia, cervical disc disease with chronic back pain with r sided sciatica, degenerative arthritis involving the lower back, tinnitus, vitamin D deficiency , iron anemia, chronic thrombocytopenia. pt had radiation 04/28 for prostate cancer History of Any Multi-Drug Resistant Organisms: None Reported Past Surgical History: Appendectomy, Cholecystectomy Additional Past Surgical History / Comment(s): EGDs/esophageal varicies bandings , colonoscopies. Past Anesthesia/Blood Transfusion Reactions: No Reported Reaction Additional Past Anesthesia/Blood Transfusion Reaction / Comment(s): after appendix removed sob Past Psychological History: Anxiety, Depression Additional Psychological History / Comment(s): Pt lives in an apartment alone. Apartment complex has front door ramp and has an elevator. no pets. Sometimes his sister stays with him and cleans his home. He uses a cane to ambulate at times. He drives but currently has no car. He gets to [place] by [employer]. He has a nebulizer and a glucometer. Used to work in [employer]. Relates that he's not been a smoker. Denies recreational drug use. His left him many years ago he has adult children that he does not see very often. No experience. No travel history. No animal exposures Smoking Status: Never smoker Past Alcohol Use History: Occasional Additional Past Alcohol Use History / Comment(s): Pt states that normally he drinks 3 large beers per day and last drank 3-4 days ago. Past Drug Use History: None Reported - Past Family History Mother Family Medical History: COPD, CVA/TIA, Dementia Additional Family Medical History / Comment(s): from a stroke Father Family Medical History: Pneumonia Additional Family Medical History / Comment(s): Father of pneumonia when he was close to 80 yrs old. Medications and Allergies Home Medications Medication Instructions Recorded Confirmed Type metFORMIN HCL 1,000 mg PO BID 09/23/17 05/03/18 History Nadolol [Corgard] 20 mg PO DAILY #30 tab 11/11/17 05/03/18 Rx Cholecalciferol [Vitamin D3] 1,000 unit PO DAILY 01/06/18 05/03/18 History Aspirin [Children's Aspirin] 81 mg PO DAILY #30 tab.chew 03/26/18 05/03/18 Rx cloNIDine HCL [Catapres] 0.1 mg PO BID #60 tab 03/26/18 05/03/18 Rx Ferrous Sulfate [Iron (65 MG 325 mg PO DAILY 04/24/18 05/03/18 History Elemental)] Folic Acid 1 mg PO DAILY 04/24/18 05/03/18 History Magnesium Oxide [Mag-Ox] 400 mg PO HS 04/24/18 05/03/18 History Pantoprazole [Protonix] 40 mg PO BID 04/24/18 05/03/18 History LORazepam [Ativan] 0.5 mg PO Q6HR PRN 3 Days #12 tab 04/28/18 05/03/18 Rx Allergies Allergy/AdvReac Type Severity Reaction Status Date / Time adhesive tape Allergy Rash/Hives Verified 05/03/18 08:03 egg AdvReac Nausea & Verified 05/03/18 08:03 Vomiting lisinopril AdvReac EYES Verified 05/03/18 08:03 BURN&ITCH/WEAKNESS tomato AdvReac Nausea & Verified 05/03/18 08:03 Vomiting & Diarrhea Physical Exam Vitals: Vital Signs Temp Pulse Pulse Resp BP BP Pulse Ox 05/04/18 05:27 97.9 F 67 16 144/91 96 05/04/18 00:00 98 F 77 17 157/95 95 05/03/18 20:00 99.6 F 81 17 158/88 95 05/03/18 19:49 92 05/03/18 19:38 93 95 05/03/18 18:45 97.4 F L 94 20 149/89 96 05/03/18 18:00 95 18 05/03/18 14:17 98.2 F 103 H 18 154/98 93 L 05/03/18 11:45 98.3 F 134 H 18 178/113 97 05/03/18 10:00 135 H 20 169/98 96 05/03/18 09:40 130 H 20 160/98 96 05/03/18 09:20 126 H 20 155/98 94 L 05/03/18 09:00 129 H 20 167/97 96 05/03/18 08:43 128 H 05/03/18 08:40 128 H 20 176/110 96 05/03/18 08:37 124 H 05/03/18 08:29 120 H 05/03/18 08:20 129 H 20 173/108 95 Intake and Output 05/03/18 05/04/18 05/04/18 22:59 06:59 14:59 Intake Total 422 Output Total 2650 Balance -2228 Intake: IV 200 0.9@ 100mls/hr 200 Oral 222 Output: Urine 2450 Stool 200 Other: Voiding Method Urinal # Voids 1 Weight 77 kg 76.7 kg PHYSICAL EXAMINATION: GENERAL: 63-year-old gentleman in no acute distress at the time of my examination HEENT: Head is atraumatic, normocephalic. Pupils equal, round. Sclera anicteric. Conjunctiva are clear. Mucous membranes of the mouth are moist. Neck is supple. There is no elevated jugular venous pressure. No carotid bruit is heard. HEART EXAMINATION: Heart S1, S2 normal. No murmur or gallop heard. CHEST EXAMINATION: Lungs are clear to auscultation and precussion. No chest wall tenderness is noted on palpation or with deep breathing. ABDOMEN: Soft, nontender. Bowel sounds are heard. No organomegaly noted. EXTREMITIES: 2+ peripheral pulses with no evidence of peripheral edema and no calf tenderness noted. NEUROLOGIC patient is awake, alert and oriented X3. . Results 05/04/18 06:13 05/04/18 06:13 Cardiac Enzymes 05/03/18 05/03/18 05/04/18 Range/Units 11:16 19:08 06:13 AST 52 (17-59) U/L CK-MB (CK-2) 0.4 0.6 (0.0-2.4) ng/mL Troponin I <0.012 <0.012 (0.000-0.034) ng/mL Lipids 05/04/18 Range/Units 06:13 Triglycerides 101 (<150) mg/dL Cholesterol 225 H (<200) mg/dL HDL Cholesterol 63 H (40-60) mg/dL CBC 05/04/18 Range/Units 06:13 WBC 5.2 (3.8-10.6) k/uL RBC 3.94 L (4.30-5.90) m/uL Hgb 11.6 L (13.0-17.5) gm/dL Hct 36.3 L (39.0-53.0) % Plt Count 112 L (150-450) k/uL Comprehensive Metabolic Panel 05/04/18 Range/Units 06:13 Sodium 140 (137-145) mmol/L Potassium 3.3 L (3.5-5.1) mmol/L Chloride 106 (98-107) mmol/L Carbon Dioxide 27 (22-30) mmol/L BUN 13 (9-20) mg/dL Creatinine 0.69 (0.66-1.25) mg/dL Glucose 112 H (74-99) mg/dL Calcium 9.0 (8.4-10.2) mg/dL AST 52 (17-59) U/L ALT 30 (21-72) U/L Alkaline Phosphatase 81 (38-126) U/L Total Protein 7.0 (6.3-8.2) g/dL Albumin 3.3 L (3.5-5.0) g/dL Current Medications Generic Name Dose Route Start Last Admin Trade Name Freq PRN Reason Stop Dose Admin Acetaminophen/Butalbital/Caffeine 1 each 05/03/18 12:14 05/03/18 12:35 Fioricet 50-325-40 PO 1 each Q4HR PRN Administration Headache Albuterol/Ipratropium 3 ml 05/03/18 15:58 05/03/18 19:38 Duoneb 0.5 Mg-3 Mg/3 Ml Soln INHALATION 3 ml RT-Q2H PRN Administration Shortness Of Breath Or Wheezing Aspirin 81 mg 05/03/18 14:20 05/03/18 16:56 Aspirin PO 81 mg DAILY TANYA Administration Cholecalciferol 1,000 unit 05/04/18 09:00 Vitamin D3 PO DAILY TANYA Clonidine 0.1 mg 05/03/18 12:15 05/03/18 21:32 Catapres PO 0.1 mg BID TANYA Administration Enoxaparin Sodium 40 mg 05/04/18 09:00 Lovenox SQ DAILY TANYA Ferrous Sulfate 325 mg 05/04/18 09:00 Feosol PO DAILY TANYA Dextrose/Sodium Chloride 1,000 mls @ 80 mls/hr 05/03/18 10:15 05/03/18 23:40 Dextrose 5%-1/2ns Iv Soln IV Not Given .[id number] TANYA Sodium Chloride 1,000 mls @ 20 mls/hr 05/03/18 10:15 05/03/18 21:23 Saline 0.9% IV Not Given .Q24H TANYA Lorazepam 1 mg 05/03/18 10:04 05/04/18 05:36 Ativan IV 1 mg Q2HR PRN Administration CIWA 8 or 9 Lorazepam 1 mg 05/03/18 10:04 Ativan IV Q1HR PRN CIWA 10 to 15 Lorazepam 2 mg 05/03/18 10:04 05/03/18 11:51 Ativan IV 05/05/18 10:04 2 mg Q10M PRN Administration CIWA 16 or higher Magnesium Oxide 400 mg 05/03/18 21:00 05/03/18 21:32 Mag-Ox PO 400 mg HS TANYA Administration Metformin HCl 1,000 mg 05/03/18 17:30 05/04/18 06:58 Glucophage PO 1,000 mg BID-W/MEALS TANYA Administration Multivitamins 1 each 05/04/18 12:00 Theragran PO DAILY@1200 TANYA Nadolol 20 mg 05/03/18 12:15 05/03/18 13:09 Corgard PO 20 mg DAILY TANYA Administration Nitroglycerin 0.4 mg 05/03/18 10:01 Nitrostat SUBLINGUAL Q5M PRN Chest Pain Pantoprazole Sodium 40 mg 05/03/18 12:15 05/04/18 06:58 Protonix PO 40 mg AC-BID TANYA Administration Thiamine HCl 100 mg 05/03/18 17:00 05/03/18 18:19 Vitamin B-1 PO 100 mg BID@1200,1700 TANYA Administration Intake and Output 05/03/18 05/04/18 05/04/18 22:59 06:59 14:59 Intake Total 422 Output Total 2650 Balance -2228 Intake: IV 200 0.9@ 100mls/hr 200 Oral 222 Output: Urine 2450 Stool 200 Other: Voiding Method Urinal # Voids 1 Weight 77 kg 76.7 kg 05/04/18 06:13 05/04/18 06:13 EKG Interpretations (text) EKG shows a sinus tachycardia Assessment and Plan Plan: Assessment and plan #1 palpitations, EKG showed sinus tachycardia, possibly related to alcohol withdrawal. #2 hyperlipidemia #3 hypertension, accelerated #4 diabetes #5 chronic alcohol abuse with history of esophageal varices and alcoholic cirrhosis #6 history of GI bleeding #7 Paroxysmal atrial fibrillation, patient not on anticoagulation because of history of GI bleeding #8 history of prior CVA Plan Patient did have an echocardiogram with Doppler study performed in March which revealed a normal left ventricular systolic function, dobutamine echo performed in November of this year was negative for any reversible ischemia. Patient has been advised strongly regarding the importance of EtOH cessation. We will add some Norvasc to his medication regime for more optimal blood pressure control. Further recommendations to follow. DNP note has been reviewed, I agree with a documented findings and plan of care. Patient was seen and examined.
[2018-05-04] MEDS ORDERED: Potassium Replacement Protocol 1 EACH MISC MISCELLANE PRN (08:31)
[2018-05-04] MEDS ORDERED: Magnesium Replacement Protocol 1 EACH MISC MISCELLANE PRN (08:31)
[2018-05-04] MEDS: cloNIDine HCL 0.1 MG TAB PO SCH ×2 (08:49→20:57)
[2018-05-04] MEDS: NADOLOL 20 MG TAB PO SCH (08:49)
[2018-05-04] MEDS: ENOXAPARIN 40 MG/0.4 ML SYRINGE SQ SCH (08:49)
[2018-05-04] MEDS: ASPIRIN 81 MG PO SCH (08:49)
[2018-05-04] MEDS: POTASSIUM CHLORIDE ER 20 MEQ TAB.ER PO SCH ×2 (08:49→08:50)
[2018-05-04] MEDS: amLODIPine 5 MG TAB PO SCH (08:50)
[2018-05-04] MEDS: MULTIVITAMINS, THERA 1 EACH TAB PO SCH (08:50)
[2018-05-04] MEDS: CHOLECALCIFEROL 1,000 UNIT TAB PO SCH (08:50)
[2018-05-04] MEDS: DEXTROSE 5%-0.45% NACL 1,000 ML IV SCH ×2 (08:50→22:38)
[2018-05-04] MEDS: THIAMINE 100 MG TAB PO SCH ×2 (08:50→16:09)
[2018-05-04] MEDS: FERROUS SULFATE 325 MG TAB PO SCH (08:50)
[2018-05-04] MEDS: MAGNESIUM SULFATE-D5W PMX 1 GM in DEXTROSE/WATER 1 100ML.BAG IVPB SCH ×2 (08:59→10:16)
[2018-05-04] MEDS ORDERED: ASPIRIN 81 MG PO SCH (09:00)
--- NOTE | 2018-05-04 11:02 | P.PN ---
Subjective Progress Note Date: 05/04/18 Principal diagnosis: Palpitations, heart racing, some cough and phlegm production This is a 63-year-old white male patient of Dr. Phillips with past medical history of atrial fibrillation, COPD, CVA/TIA, diabetes mellitus, GERD, hypertension, hyperlipidemia, previous episode of pulmonary embolus, chronic EtOH use, with chronic alcoholic cirrhosis with portal hypertension and previous history of GI bleeding, esophageal varices, diverticulosis, anxiety and depression. He was brought to the emergency department on 05/03/2018 for evaluation of palpitation, sensation of heart racing. He did have some increased cough and phlegm production, and some hot flashes prior to that. EKG and emergency department showed a sinus tachycardia with a rate of 134, chest x- ray showed chronic left hemithorax volume loss, cardiomegaly, mild fluid overload. Patient is not on oxygen at home, he is not on any inhalers. He states his last drink was 3 days ago, he had 2 large beers. Lab work revealed WBC of 5.8, hemoglobin of 12.6, INR 1.1, electrolytes and renal profile were all within normal limits, magnesium was 1.3, AST was 65, ALT and alk phos were within normal limits, troponins were negative 2, serum alcohol level was less than 10. The patient has been afebrile, pulse ox 93%. He is fairly comfortable , he seen in the emergency department resting on the gurney, in no acute distress, currently his rate is better controlled, he remains in sinus mechanism with a rate of 103 BPM. Lung sounds are positive for diffuse rales at bilateral bases, no wheezing or rhonchi noted. On 05/04/2018 patient seen in follow-up on selective care unit, he is resting comfortably in bed, alert and oriented 3, no signs of delirium tremens. Patient had converted to normal sinus rhythm and his rate is controlled at 68- 72 BPM. Afebrile, hemodynamically stable, room air pulse ox is 95%. Lung sounds are diminished with bibasilar crackles, no wheezing or rhonchi. His lab work has been reviewed, WBC is 5.2, hemoglobin is 11.6, potassium is 3.3, electrolytes and renal profile are within normal limits, magnesium was 1.5. Potassium and magnesium have been replaced per protocol. Objective - Vital Signs Vital signs: Vital Signs Temp 97.5 F L 05/04/18 08:00 Pulse 70 05/04/18 08:00 Resp 18 05/04/18 08:00 BP 156/98 05/04/18 08:00 Pulse Ox 95 05/04/18 08:00 Intake & Output 05/03/18 05/04/18 05/04/18 18:59 06:59 18:59 Intake Total 100 422 120 Output Total 3350 Balance -3250 422 120 Weight 77 kg 76.7 kg Intake: IV 100 200 0.9@ 100mls/hr 200 Sodium Chloride 0.9% 1, 100 000 ml @ 20 mls/hr IV . Q24H TANYA Rx#:[id number] Oral 222 120 Output: Urine 3150 Stool 200 Other: Voiding Method Urinal # Voids 1 - Exam GENERAL EXAM: Alert, active, comfortable in no apparent distress. HEAD: Normocephalic/atraumatic. EYES: Normal reaction of pupils, equal size. Conjunctiva pink, sclera white. NOSE: Clear with pink turbinates. THROAT: No erythema or exudates. NECK: No masses, no JVD, no thyroid enlargement, no adenopathy. CHEST: No chest wall deformity. Symmetrical expansion. LUNGS: Equal air entry with crackles at bilateral bases posteriorly, but no rhonchi or wheezes CVS: Regular rate and rhythm, normal S1 and S2, no gallops, no murmurs, no rubs ABDOMEN: Soft, nontender. No hepatosplenomegaly, normal bowel sounds, no guarding or rigidity. EXTREMITIES: No clubbing, no edema, no cyanosis, 2+ pulses and upper and lower extremities. MUSCULOSKELETAL: Muscle strength and tone normal. SPINE: No scoliosis or deformity SKIN: No rashes CENTRAL NERVOUS SYSTEM: Alert and oriented -3. No focal deficits, tone is normal in all 4 extremities. PSYCHIATRIC: Alert and oriented -3. Appropriate affect. Intact judgment and insight. - Labs CBC & Chem 7: 05/04/18 06:13 05/04/18 06:13 Labs: Abnormal Lab Results - Last 24 Hours (Table) 05/03/18 05/04/18 05/04/18 Range/Units 21:32 05:39 06:13 RBC (4.30-5.90) m/uL Hgb (13.0-17.5) gm/dL Hct (39.0-53.0) % RDW (11.5-15.5) % Plt Count (150-450) k/uL Potassium 3.3 L (3.5-5.1) mmol/L Glucose 112 H (74-99) mg/dL POC Glucose (mg/dL) 112 H 111 H (75-99) mg/dL Magnesium 1.5 L (1.6-2.3) mg/dL Total Bilirubin 1.6 H (0.2-1.3) mg/dL Albumin 3.3 L (3.5-5.0) g/dL Cholesterol 225 H (<200) mg/dL LDL Cholesterol, Calc 142 H (0-99) mg/dL HDL Cholesterol 63 H (40-60) mg/dL 05/04/18 Range/Units 06:13 RBC 3.94 L (4.30-5.90) m/uL Hgb 11.6 L (13.0-17.5) gm/dL Hct 36.3 L (39.0-53.0) % RDW 16.8 H (11.5-15.5) % Plt Count 112 L (150-450) k/uL Potassium (3.5-5.1) mmol/L Glucose (74-99) mg/dL POC Glucose (mg/dL) (75-99) mg/dL Magnesium (1.6-2.3) mg/dL Total Bilirubin (0.2-1.3) mg/dL Albumin (3.5-5.0) g/dL Cholesterol (<200) mg/dL LDL Cholesterol, Calc (0-99) mg/dL HDL Cholesterol (40-60) mg/dL Assessment and Plan Plan: Assessment: #1. Palpitations, sinus tachycardia, possibly related to alcohol withdrawal. EKG revealed sinus tachycardia with a rate of 134 BPM. Currently in sinus rhythm with controlled rate #2. History of COPD, currently stable #3. Mild fluid overload, noted on a chest x-ray, the patient denies any acute dyspnea #4. History of atrial fibrillation, currently in sinus mechanism #5. Daily EtOH use #6. History of chronic alcoholic cirrhosis with portal hypertension and previous history of GI bleeding #7. Diabetes mellitus #8. Should, hyperlipidemia #9. History of pulmonary embolism #10. History of CVA without any residual deficits #11. History of diverticulosis Plan: Patient is stable, sinus mechanism with a controlled rate, no palpitations, no chest pain, no difficulty breathing. Vital signs are stable, afebrile. On room air, maintaining good oxygenation. In today nebulized bronchodilators, increase activity as tolerated, maintain CIWA protocol I performed a history & physical examination of the patient and discussed their management with my nurse practitioner, Aline Collins. I reviewed the nurse practitioner's note and agree with the documented findings and plan of care. Lung sounds are positive for bibasilar crackles. The findings and the impression was discussed with the patient. I attest to the documentation by the nurse practitioner. Time with Patient: Less than 30
[2018-05-04 11:26] LABS: Glucose,Whole Blood 107 mg/dL (75-99)
--- NOTE | 2018-05-04 12:44 | P.PN ---
Subjective Progress Note Date: 05/04/18 This is a 63-year-old male, patient of [facility]. He has a known past medical history of alcohol abuse, alcoholic liver cirrhosis with portal hypertension, esophageal varices with previous GI bleed, paroxysmal atrial fibrillation not on anticoagulation due to GI bleed, diabetes mellitus, CVA and PE. Patient has had previous hospitalizations due to alcohol withdrawal. Patient presents to the emergency room with complaints that his heart was racing and he had a headache around 3:00 this morning. Patient was found to have elevated blood pressures 180/109. Given IV hydralazine in the ER. Patient also given IV Ativan for alcohol withdrawal. Patient reports his last alcoholic drink was about 4 days ago. Patient was tachycardic with a heart rate of 137 on EKG. First troponin was negative. Patient does complain of some chest pains. Also having some vision changes. Denies any nausea vomiting. Denies any bowel movement changes. Denies any burning with urination. Denies any fever chills or sweats. Denies any cough. Does admit to some shortness of breath. Patient's home blood pressure medications were restarted with the Catapres and Cogard. We'll continue to monitor blood pressure and heart rate. Chest x-ray showing a chronic left hemithorax volume loss and cardiomegaly with leftward mediastinal shift all unchanged from the prior. No acute cardiopulmonary process. Patient started on the CIWA protocol with Ativan multivitamin and thiamine. Continue with IV fluids. Headache and vision changes likely related to patient's elevated blood pressures. Restarting blood pressure medications. Cardiology on consult. We'll continue to monitor. On 05/04/2018 patient is currently lying in bed. Patient is alert and oriented 3. Blood pressure improved. Patient denies chest pain or shortness breath. Patient is complaining of some abdominal discomfort. Patient denies chest pain or shortness of breath. Patient denies nausea vomiting or diarrhea. Patient denies any urinary burning or frequency. Objective - Vital Signs Vital signs: Vital Signs Temp 97.9 F 05/04/18 12:00 Pulse 82 05/04/18 12:00 Resp 18 05/04/18 12:00 BP 152/93 05/04/18 12:00 Pulse Ox 96 05/04/18 12:00 Intake & Output 05/03/18 05/04/18 05/04/18 18:59 06:59 18:59 Intake Total 100 422 120 Output Total 3350 Balance -3250 422 120 Weight 77 kg 76.7 kg Intake: IV 100 200 0.9@ 100mls/hr 200 Sodium Chloride 0.9% 1, 100 000 ml @ 20 mls/hr IV . Q24H TANYA Rx#:[id number] Oral 222 120 Output: Urine 3150 Stool 200 Other: Voiding Method Urinal # Voids 1 - Exam Head normocephalic Neck supple Lungs clear to auscultation bilaterally no wheezing or crackles Heart regular rate and rhythm S1-S2, no rub or gallop Abdomen is soft nontender nondistended positive bowel sounds no hepatosplenomegaly Extremities no edema Neuro alert and orientated to 3 - Labs CBC & Chem 7: 05/04/18 06:13 05/04/18 06:13 Labs: Abnormal Lab Results - Last 24 Hours (Table) 05/03/18 05/04/18 05/04/18 Range/Units 21:32 05:39 06:13 RBC (4.30-5.90) m/uL Hgb (13.0-17.5) gm/dL Hct (39.0-53.0) % RDW (11.5-15.5) % Plt Count (150-450) k/uL Potassium 3.3 L (3.5-5.1) mmol/L Glucose 112 H (74-99) mg/dL POC Glucose (mg/dL) 112 H 111 H (75-99) mg/dL Magnesium 1.5 L (1.6-2.3) mg/dL Total Bilirubin 1.6 H (0.2-1.3) mg/dL Albumin 3.3 L (3.5-5.0) g/dL Cholesterol 225 H (<200) mg/dL LDL Cholesterol, Calc 142 H (0-99) mg/dL HDL Cholesterol 63 H (40-60) mg/dL 05/04/18 05/04/18 Range/Units 06:13 11:16 RBC 3.94 L (4.30-5.90) m/uL Hgb 11.6 L (13.0-17.5) gm/dL Hct 36.3 L (39.0-53.0) % RDW 16.8 H (11.5-15.5) % Plt Count 112 L (150-450) k/uL Potassium (3.5-5.1) mmol/L Glucose (74-99) mg/dL POC Glucose (mg/dL) 107 H (75-99) mg/dL Magnesium (1.6-2.3) mg/dL Total Bilirubin (0.2-1.3) mg/dL Albumin (3.5-5.0) g/dL Cholesterol (<200) mg/dL LDL Cholesterol, Calc (0-99) mg/dL HDL Cholesterol (40-60) mg/dL Assessment and Plan Assessment: 1. Heart palpitations: With EKGs showing sinus tachycardia heart rate of 137. Possibly related to alcohol withdrawal. Also patient did not take his beta madeline this morning. Continue with telemetry monitoring. Continue with IV fluids. Restart beta madeline 2. Chest pain: First troponin negative. Continue monitoring cardiac enzymes. Consult cardiology 3. Hypertensive urgency: Patient did receive IV hydralazine in the ER. Resume patient's Catapres and Corgard. Norvasc has been added 4. Alcohol withdrawal: Start Ativan per CIWA protocol. Continue thiamine and multivitamin. Consult social work. Check alcohol level 5. Chronic left hemothorax volume loss and cardiomegaly with leftward mediastinal shift all unchanged from prior. No acute pulmonary process. Noted on chest x-ray. Per pulmonary services was given 1 dose of steroids. 6. History of alcohol liver cirrhosis with portal hypertension 7. History of esophageal varices with an EGD and ligation on 10/21/2017 8. History of pulmonary embolism 9. History of diabetes mellitus type 2 10. History of paroxysmal atrial fibrillation not on anticoagulation due to history of bleeding esophageal varices 11. History of COPD no evidence of exacerbation at this time 12. Hypomagnesemia patient received magnesium supplement and repeat magnesium level in a.m. magnesium [place] remains 1.6 we'll replace per protocol 13. Chronic thrombocytopenia due to liver disease. Platelet count 134. 14. Hypokalemia. Potassium 3.3. Replace per protocol DVT prophylaxis Lovenox I performed an examination of the patient and discussed their management with the Nurse Practitioner. I have reviewed the Nurse Practitioner's notes and agree with the documented findings and plan of care
[2018-05-04 16:25] LABS: Glucose,Whole Blood 100 mg/dL (75-99)
[2018-05-04] MEDS: MAGNESIUM OXIDE 400 MG TAB PO SCH (20:57)
[2018-05-04] MEDS: SODIUM CHLORIDE 0.9% 1,000 ML IV SCH (20:57)
[2018-05-04 21:13] LABS: Glucose,Whole Blood 130 mg/dL (75-99)
[2018-05-05] MEDS: LORazepam 2 MG/ML INJ IV PRN ×2 (02:12→16:14)
[2018-05-05 06:05] LABS: Glucose,Whole Blood 105 mg/dL (75-99)
[2018-05-05] MEDS: PANTOPRAZOLE 40 MG TABLET PO SCH ×2 (06:21→17:25)
[2018-05-05] MEDS: metFORMIN 500 MG TAB PO SCH ×2 (06:21→17:25)
[2018-05-05 07:01] LABS: Anisocytosis Slight; Basophils % (A) 1 %; Eosinophils # (A) 0.1 k/uL (0-0.7); Eosinophils % (A) 3 %; HCT 40.6 % (39.0-53.0); HGB 12.9 gm/dL (13.0-17.5); Lymphocytes # (A) 1.9 k/uL (1.0-4.8); Lymphocytes % (A) 34 %; MCHC 31.9 g/dL (31.0-37.0); MCV 94.2 fL (80.0-100.0); Mean Platelet Volume 7.6; Monocytes # (A) 0.4 k/uL (0-1.0); Monocytes % (A) 6 %; Neutrophils # (A) 3.2 k/uL (1.3-7.7); Neutrophils % (A) 55 %; Platelet Count 122 k/uL (150-450); RBC 4.31 m/uL (4.30-5.90); WBC 5.7 k/uL (3.8-10.6)
[2018-05-05 07:28] LABS: ALT 36 U/L (21-72); AST 61 U/L (17-59); Albumin 3.5 g/dL (3.5-5.0); Alkaline Phosphatase 93 U/L (38-126); Anion Gap 12 mmol/L; Blood Urea Nitrogen 14 mg/dL (9-20); Calcium 9.4 mg/dL (8.4-10.2); Carbon Dioxide 25 mmol/L (22-30); Chloride 105 mmol/L (98-107); Glucose 104 mg/dL (74-99); Magnesium 1.5 mg/dL (1.6-2.3); Potassium 3.8 mmol/L (3.5-5.1); Sodium 142 mmol/L (137-145); Total Bilirubin 0.8 mg/dL (0.2-1.3); Total Protein 7.3 g/dL (6.3-8.2)
[2018-05-05] MEDS: ENOXAPARIN 40 MG/0.4 ML SYRINGE SQ SCH (09:09)
[2018-05-05] MEDS: ASPIRIN 81 MG PO SCH (09:10)
[2018-05-05] MEDS: cloNIDine HCL 0.1 MG TAB PO SCH ×2 (09:10→20:14)
[2018-05-05] MEDS: FERROUS SULFATE 325 MG TAB PO SCH (09:10)
[2018-05-05] MEDS: amLODIPine 5 MG TAB PO SCH (09:10)
[2018-05-05] MEDS ORDERED: POTASSIUM CHLORIDE ER 20 MEQ TAB.ER PO SCH (11:00)
[2018-05-05 11:06] LABS: Glucose,Whole Blood 102 mg/dL (75-99)
--- NOTE | 2018-05-05 11:23 | P.PN ---
Subjective Progress Note Date: 05/05/18 This is a 63-year-old male, patient of [facility]. He has a known past medical history of alcohol abuse, alcoholic liver cirrhosis with portal hypertension, esophageal varices with previous GI bleed, paroxysmal atrial fibrillation not on anticoagulation due to GI bleed, diabetes mellitus, CVA and PE. Patient has had previous hospitalizations due to alcohol withdrawal. Patient presents to the emergency room with complaints that his heart was racing and he had a headache around 3:00 this morning. Patient was found to have elevated blood pressures 180/109. Given IV hydralazine in the ER. Patient also given IV Ativan for alcohol withdrawal. Patient reports his last alcoholic drink was about 4 days ago. Patient was tachycardic with a heart rate of 137 on EKG. First troponin was negative. Patient does complain of some chest pains. Also having some vision changes. Denies any nausea vomiting. Denies any bowel movement changes. Denies any burning with urination. Denies any fever chills or sweats. Denies any cough. Does admit to some shortness of breath. Patient's home blood pressure medications were restarted with the Catapres and Cogard. We'll continue to monitor blood pressure and heart rate. Chest x-ray showing a chronic left hemithorax volume loss and cardiomegaly with leftward mediastinal shift all unchanged from the prior. No acute cardiopulmonary process. Patient started on the CIWA protocol with Ativan multivitamin and thiamine. Continue with IV fluids. Headache and vision changes likely related to patient's elevated blood pressures. Restarting blood pressure medications. Cardiology on consult. We'll continue to monitor. On 05/04/2018 patient is currently lying in bed. Patient is alert and oriented 3. Blood pressure improved. Patient denies chest pain or shortness breath. Patient is complaining of some abdominal discomfort. Patient denies chest pain or shortness of breath. Patient denies nausea vomiting or diarrhea. Patient denies any urinary burning or frequency. 05/05/2018 patient reporting that he started having diarrhea. Also had some abdominal cramping. He had 3 loose stools this morning. Stool for C. diff has been ordered. Patient also said continues to have shaking and tremors and was given Ativan with improvement. Blood pressure and heart rate have improved. He is receiving magnesium and potassium supplement. Reports improvement in his heart palpitations and chest pain. Denies any nausea or vomiting. Denies shortness of breath Objective - Vital Signs Vital signs: Vital Signs Temp 98.1 F 05/05/18 08:00 Pulse 89 05/05/18 08:00 Resp 16 05/05/18 08:00 BP 149/85 05/05/18 08:00 Pulse Ox 95 05/05/18 08:00 Intake & Output 05/04/18 05/05/18 05/05/18 18:59 06:59 18:59 Intake Total 360 974 240 Output Total 2 3 Balance 360 972 237 Weight 76.2 kg Intake: Oral 360 974 240 Output: Urine 1 Stool 1 3 Other: Voiding Method Urinal Urinal # Voids 1 - Exam Head normocephalic Neck supple Lungs clear to auscultation bilaterally no wheezing or crackles Heart regular rate and rhythm S1-S2, no rub or gallop Abdomen is soft diffuse tenderness nondistended positive bowel sounds no hepatosplenomegaly Extremities no edema Neuro alert and orientated to 3 - Labs CBC & Chem 7: 05/05/18 05:50 05/05/18 05:50 Labs: Abnormal Lab Results - Last 24 Hours (Table) 05/04/18 05/04/18 05/04/18 Range/Units 11:16 16:13 21:11 Hgb (13.0-17.5) gm/dL RDW (11.5-15.5) % Plt Count (150-450) k/uL Glucose (74-99) mg/dL POC Glucose (mg/dL) 107 H 100 H 130 H (75-99) mg/dL Magnesium (1.6-2.3) mg/dL AST (17-59) U/L 05/05/18 05/05/18 05/05/18 Range/Units 05:50 05:50 06:04 Hgb 12.9 L (13.0-17.5) gm/dL RDW 17.0 H (11.5-15.5) % Plt Count 122 L (150-450) k/uL Glucose 104 H (74-99) mg/dL POC Glucose (mg/dL) 105 H (75-99) mg/dL Magnesium 1.5 L (1.6-2.3) mg/dL AST 61 H (17-59) U/L 05/05/18 Range/Units 11:03 Hgb (13.0-17.5) gm/dL RDW (11.5-15.5) % Plt Count (150-450) k/uL Glucose (74-99) mg/dL POC Glucose (mg/dL) 102 H (75-99) mg/dL Magnesium (1.6-2.3) mg/dL AST (17-59) U/L Assessment and Plan Assessment: 1. Heart palpitations: With EKGs showing sinus tachycardia heart rate of 137. Possibly related to alcohol withdrawal. Also patient did not take his beta madeline this morning. Continue with telemetry monitoring. Heart rate is showing improvement 2. Chest pain: Cardiac enzymes negative 3. Patient seen evaluated by cardiology. 3. Hypertensive urgency: Patient did receive IV hydralazine in the ER. Continue Catapres and Corgard. Cranial she had Norvasc. Blood pressure showing improvement. 4. Alcohol withdrawal: Start Ativan per [facility] protocol. Continue thiamine and multivitamin. Consult social work. Check alcohol level 5. Chronic left hemothorax volume loss and cardiomegaly with leftward mediastinal shift all unchanged from prior. No acute pulmonary process. Noted on chest x-ray. Patient seen evaluated by pulmonary service. Was given 1 dose of IV Solu-Medrol. 6. History of alcohol liver cirrhosis with portal hypertension 7. History of esophageal varices with an EGD and ligation on 10/21/2017 8. History of pulmonary embolism 9. History of diabetes mellitus type 2 10. History of paroxysmal atrial fibrillation not on anticoagulation due to history of bleeding esophageal varices 11. History of COPD no evidence of exacerbation at this time 12. Hypomagnesemia and hypokalemia patient receiving supplement. 13. Chronic thrombocytopenia due to liver disease. Platelet count 134. 14. Diarrhea check stool for C. diff. DVT prophylaxis Lovenox I performed an examination of the patient and discussed their management with the physician Lemon Grower. I have reviewed the Physician Lemon Grower's notes and agree with the documented findings and plan of care
[2018-05-05] MEDS: THIAMINE 100 MG TAB PO SCH ×2 (12:04→17:25)
[2018-05-05] MEDS: MULTIVITAMINS, THERA 1 EACH TAB PO SCH (12:05)
[2018-05-05] MEDS: CHOLECALCIFEROL 1,000 UNIT TAB PO SCH (12:05)
[2018-05-05] MEDS: MAGNESIUM SULFATE-D5W PMX 1 GM in DEXTROSE/WATER 1 100ML.BAG IVPB SCH ×2 (12:12→13:33)
--- NOTE | 2018-05-05 12:51 | P.PN ---
Subjective Progress Note Date: 05/05/18 Principal diagnosis: Palpitations, heart racing, some cough and phlegm production This is a 63-year-old white male patient of Dr. Phillips with past medical history of atrial fibrillation, COPD, CVA/TIA, diabetes mellitus, GERD, hypertension, hyperlipidemia, previous episode of pulmonary embolus, chronic EtOH use, with chronic alcoholic cirrhosis with portal hypertension and previous history of GI bleeding, esophageal varices, diverticulosis, anxiety and depression. He was brought to the emergency department on 05/03/2018 for evaluation of palpitation, sensation of heart racing. He did have some increased cough and phlegm production, and some hot flashes prior to that. EKG and emergency department showed a sinus tachycardia with a rate of 134, chest x- ray showed chronic left hemithorax volume loss, cardiomegaly, mild fluid overload. Patient is not on oxygen at home, he is not on any inhalers. He states his last drink was 3 days ago, he had 2 large beers. Lab work revealed WBC of 5.8, hemoglobin of 12.6, INR 1.1, electrolytes and renal profile were all within normal limits, magnesium was 1.3, AST was 65, ALT and alk phos were within normal limits, troponins were negative 2, serum alcohol level was less than 10. The patient has been afebrile, pulse ox 93%. He is fairly comfortable , he seen in the emergency department resting on the gurney, in no acute distress, currently his rate is better controlled, he remains in sinus mechanism with a rate of 103 BPM. Lung sounds are positive for diffuse rales at bilateral bases, no wheezing or rhonchi noted. On 05/04/2018 patient seen in follow-up on [facility] care unit, he is resting comfortably in bed, alert and oriented 3, no signs of delirium tremens. Patient had converted to normal sinus rhythm and his rate is controlled at 68- 72 BPM. Afebrile, hemodynamically stable, room air pulse ox is 95%. Lung sounds are diminished with bibasilar crackles, no wheezing or rhonchi. His lab work has been reviewed, WBC is 5.2, hemoglobin is 11.6, potassium is 3.3, electrolytes and renal profile are within normal limits, magnesium was 1.5. Potassium and magnesium have been replaced per protocol. On 05/05/2018 patient seen in follow-up on selective care unit. He is awake and alert, in no acute distress, denies any difficulty breathing, no chest pain , no palpitations, room air pulse ox is 95%, vital signs are stable, patient is afebrile, lung sounds are diminished, no wheezing, rhonchi or rales noted. Heart rate is controlled, 89-95 BPM, today's labs have been noted. From pulmonary perspective patient is stable, and can discharge home today. Objective - Vital Signs Vital signs: Vital Signs Temp 98 F 05/05/18 11:54 Pulse 95 05/05/18 11:54 Resp 20 05/05/18 11:54 BP 108/73 05/05/18 11:54 Pulse Ox 95 05/05/18 11:54 Intake & Output 05/04/18 05/05/18 05/05/18 18:59 06:59 18:59 Intake Total 360 974 240 Output Total 2 3 Balance 360 972 237 Weight 76.2 kg Intake: Oral 360 974 240 Output: Urine 1 Stool 1 3 Other: Voiding Method Urinal Urinal # Voids 1 - Exam GENERAL EXAM: Alert, active, comfortable in no apparent distress. HEAD: Normocephalic/atraumatic. EYES: Normal reaction of pupils, equal size. Conjunctiva pink, sclera white. NOSE: Clear with pink turbinates. THROAT: No erythema or exudates. NECK: No masses, no JVD, no thyroid enlargement, no adenopathy. CHEST: No chest wall deformity. Symmetrical expansion. LUNGS: Equal air entry with no crackles, but no rhonchi or wheezes CVS: Regular rate and rhythm, normal S1 and S2, no gallops, no murmurs, no rubs ABDOMEN: Soft, nontender. No hepatosplenomegaly, normal bowel sounds, no guarding or rigidity. EXTREMITIES: No clubbing, no edema, no cyanosis, 2+ pulses and upper and lower extremities. MUSCULOSKELETAL: Muscle strength and tone normal. SPINE: No scoliosis or deformity SKIN: No rashes CENTRAL NERVOUS SYSTEM: Alert and oriented -3. No focal deficits, tone is normal in all 4 extremities. PSYCHIATRIC: Alert and oriented -3. Appropriate affect. Intact judgment and insight. - Labs CBC & Chem 7: 05/05/18 05:50 05/05/18 05:50 Labs: Abnormal Lab Results - Last 24 Hours (Table) 05/04/18 05/04/18 05/05/18 Range/Units 16:13 21:11 05:50 Hgb 12.9 L (13.0-17.5) gm/dL RDW 17.0 H (11.5-15.5) % Plt Count 122 L (150-450) k/uL Glucose (74-99) mg/dL POC Glucose (mg/dL) 100 H 130 H (75-99) mg/dL Magnesium (1.6-2.3) mg/dL AST (17-59) U/L 05/05/18 05/05/18 05/05/18 Range/Units 05:50 06:04 11:03 Hgb (13.0-17.5) gm/dL RDW (11.5-15.5) % Plt Count (150-450) k/uL Glucose 104 H (74-99) mg/dL POC Glucose (mg/dL) 105 H 102 H (75-99) mg/dL Magnesium 1.5 L (1.6-2.3) mg/dL AST 61 H (17-59) U/L Assessment and Plan Plan: Assessment: #1. Palpitations, sinus tachycardia, possibly related to alcohol withdrawal. EKG revealed sinus tachycardia with a rate of 134 BPM. Currently in sinus rhythm with controlled rate #2. History of COPD, currently stable #3. Mild fluid overload, noted on a chest x-ray, the patient denies any acute dyspnea #4. History of atrial fibrillation, currently in sinus mechanism #5. Daily EtOH use #6. History of chronic alcoholic cirrhosis with portal hypertension and previous history of GI bleeding #7. Diabetes mellitus #8. Should, hyperlipidemia #9. History of pulmonary embolism #10. History of CVA without any residual deficits #11. History of diverticulosis Plan: Patient remains stable, heart rate is controlled, and his mechanism, no difficulty breathing, no chest pain, no palpitations, vital signs are stable, a pulmonary perspective patient is stable for discharge home today. He can follow up with his primary care physician I performed a history & physical examination of the patient and discussed their management with my nurse practitioner, Aline Collins. I reviewed the nurse practitioner's note and agree with the documented findings and plan of care. Lung sounds are positive for bibasilar crackles. The findings and the impression was discussed with the patient. I attest to the documentation by the nurse practitioner. Time with Patient: Less than 30
[2018-05-05] MEDS: NADOLOL 20 MG TAB PO SCH (15:52)
[2018-05-05 16:10] LABS: Glucose,Whole Blood 97 mg/dL (75-99)
[2018-05-05] MEDS: SODIUM CHLORIDE 0.9% 1,000 ML IV SCH (20:14)
[2018-05-05] MEDS: MAGNESIUM OXIDE 400 MG TAB PO SCH (20:14)
[2018-05-05 20:41] LABS: Glucose,Whole Blood 103 mg/dL (75-99)
[2018-05-05 21:39] VITALS: RESP 16
[2018-05-06 06:12] LABS: Glucose,Whole Blood 102 mg/dL (75-99)
[2018-05-06 06:25] LABS: Anisocytosis Slight; Basophils % (A) 1 %; Eosinophils # (A) 0.2 k/uL (0-0.7); Eosinophils % (A) 3 %; HCT 39.5 % (39.0-53.0); HGB 12.4 gm/dL (13.0-17.5); Lymphocytes # (A) 1.6 k/uL (1.0-4.8); Lymphocytes % (A) 31 %; MCH 29.5 pg (25.0-35.0); MCHC 31.3 g/dL (31.0-37.0); MCV 94.3 fL (80.0-100.0); Mean Platelet Volume 7.5; Monocytes # (A) 0.3 k/uL (0-1.0); Monocytes % (A) 5 %; Neutrophils # (A) 3.2 k/uL (1.3-7.7); Neutrophils % (A) 59 %; Platelet Count 124 k/uL (150-450); RBC 4.19 m/uL (4.30-5.90); RDW 17.3 % (11.5-15.5); WBC 5.3 k/uL (3.8-10.6)
[2018-05-06] MEDS: PANTOPRAZOLE 40 MG TABLET PO SCH ×2 (06:28→17:38)
[2018-05-06] MEDS: metFORMIN 500 MG TAB PO SCH ×2 (06:28→17:38)
[2018-05-06 06:39] LABS: ALT 49 U/L (21-72); AST 78 U/L (17-59); Albumin 3.5 g/dL (3.5-5.0); Alkaline Phosphatase 93 U/L (38-126); Anion Gap 8 mmol/L; Blood Urea Nitrogen 15 mg/dL (9-20); Calcium 9.6 mg/dL (8.4-10.2); Carbon Dioxide 25 mmol/L (22-30); Chloride 108 mmol/L (98-107); Glucose 102 mg/dL (74-99); Magnesium 1.6 mg/dL (1.6-2.3); Potassium 4.1 mmol/L (3.5-5.1); Sodium 141 mmol/L (137-145); Total Bilirubin 0.6 mg/dL (0.2-1.3); Total Protein 7.2 g/dL (6.3-8.2)
[2018-05-06] MEDS: MAGNESIUM SULFATE-D5W PMX 1 GM in DEXTROSE/WATER 1 100ML.BAG IVPB SCH ×2 (08:52→10:17)
[2018-05-06] MEDS: CHOLECALCIFEROL 1,000 UNIT TAB PO SCH (09:07)
[2018-05-06] MEDS: amLODIPine 5 MG TAB PO SCH (09:07)
[2018-05-06] MEDS: cloNIDine HCL 0.1 MG TAB PO SCH (09:07)
[2018-05-06] MEDS: ENOXAPARIN 40 MG/0.4 ML SYRINGE SQ SCH (09:07)
[2018-05-06] MEDS: FERROUS SULFATE 325 MG TAB PO SCH (09:07)
[2018-05-06] MEDS: ASPIRIN 81 MG PO SCH (09:07)
[2018-05-06] MEDS: MULTIVITAMINS, THERA 1 EACH TAB PO SCH (11:31)
[2018-05-06] MEDS: NADOLOL 20 MG TAB PO SCH (11:31)
[2018-05-06] MEDS: THIAMINE 100 MG TAB PO SCH ×2 (11:31→17:38)
[2018-05-06 11:57] LABS: Glucose,Whole Blood 116 mg/dL (75-99)
--- NOTE | 2018-05-06 13:27 | P.DS ---
Providers Date of admission: 05/03/18 10:01 Expected date of discharge: 05/06/18 Attending physician: Charlette Finney Consults: 05/03/18 14:19 Consult Physician Routine Consulting Provider: Niraj Drew Consult Reason/Comments: chest pain, elevated BP, elevated HR Do you want consulting provider notified?: Yes 05/03/18 14:21 Consult Physician Routine Consulting Provider: Dionicio Harkins Consult Reason/Comments: abnormal CXR Do you want consulting provider notified?: Yes Primary care physician: [facility] Hospital Course: Discharge diagnosis 1. Heart palpitations: With EKGs showing sinus tachycardia heart rate of 137. Possibly related to alcohol withdrawal. Also patient did not take his beta madeline this morning. Continue with telemetry monitoring. Heart rate has improved. Cardiology cleared patient for discharge. 2. Chest pain: Cardiac enzymes negative 3. Patient seen evaluated by cardiology. 3. Hypertensive urgency: Patient did receive IV hydralazine in the ER. Continue Catapres and Corgard. Cardiology added Norvasc. Blood pressure showing improvement. 4. Alcohol withdrawal: Start Ativan per CIWA protocol. Continue thiamine and multivitamin. Consult social work. 5. Chronic left hemothorax volume loss and cardiomegaly with leftward mediastinal shift all unchanged from prior. No acute pulmonary process. Noted on chest x-ray. Patient seen evaluated by pulmonary service. 6. History of alcohol liver cirrhosis with portal hypertension 7. History of esophageal varices with an EGD and ligation on 10/21/2017 8. History of pulmonary embolism 9. History of diabetes mellitus type 2 10. History of paroxysmal atrial fibrillation not on anticoagulation due to history of bleeding esophageal varices 11. History of COPD no evidence of exacerbation at this time 12. Hypomagnesemia and hypokalemia resolved 13. Chronic thrombocytopenia due to liver disease. Platelet count 134. 14. Diarrhea resolved. Unable to check stool for C. diff Hospital course This is a 63-year-old male, patient of [facility]. He has a known past medical history of alcohol abuse, alcoholic liver cirrhosis with portal hypertension, esophageal varices with previous GI bleed, paroxysmal atrial fibrillation not on anticoagulation due to GI bleed, diabetes mellitus, CVA and PE. Patient has had previous hospitalizations due to alcohol withdrawal. Patient presents to the emergency room with complaints that his heart was racing and he had a headache around 3:00 this morning. Patient was found to have elevated blood pressures 180/109. Given IV hydralazine in the ER. Patient also given IV Ativan for alcohol withdrawal. Patient reports his last alcoholic drink was about 4 days ago. Patient was tachycardic with a heart rate of 137 on EKG. First troponin was negative. Patient does complain of some chest pains. Also having some vision changes. Denies any nausea vomiting. Denies any bowel movement changes. Denies any burning with urination. Denies any fever chills or sweats. Denies any cough. Does admit to some shortness of breath. Patient's home blood pressure medications were restarted with the Catapres and Cogard. We'll continue to monitor blood pressure and heart rate. Chest x-ray showing a chronic left hemithorax volume loss and cardiomegaly with leftward mediastinal shift all unchanged from the prior. No acute cardiopulmonary process. Patient started on the CIWA protocol with Ativan multivitamin and thiamine. Continue with IV fluids. Headache and vision changes likely related to patient's elevated blood pressures. Restarting blood pressure medications. Cardiology on consult. We'll continue to monitor. On 05/04/2018 patient is currently lying in bed. Patient is alert and oriented 3. Blood pressure improved. Patient denies chest pain or shortness breath. Patient is complaining of some abdominal discomfort. Patient denies chest pain or shortness of breath. Patient denies nausea vomiting or diarrhea. Patient denies any urinary burning or frequency. 05/05/2018 patient reporting that he started having diarrhea. Also had some abdominal cramping. He had 3 loose stools this morning. Stool for C. diff has been ordered. Patient also said continues to have shaking and tremors and was given Ativan with improvement. Blood pressure and heart rate have improved. He is receiving magnesium and potassium supplement. Reports improvement in his heart palpitations and chest pain. Denies any nausea or vomiting. Denies shortness of breath 05/06/2018 patient is medically stable for discharge. Likely patient's symptoms of hypertension and tachycardia were all related to alcohol withdrawal. Cardiology did add Norvasc during this admission. Patient's symptoms have improved. Patient also seen by fall pulmonary service regarding abnormal chest x-ray. They reviewed chest x-ray with no new recommendations. patient's alcohol withdrawal symptoms are resolving. He'll be given a small prescription for Ativan 0.5 mg 3 times a day as needed for anxiety and agitation. Patient is medically stable for discharge. We'll follow up with his PCP in 1 week. Patient was seen by social work and given information for resources for alcohol rehab. Patient plans on returning home and will seek outpatient counseling and attending AA meetings per social work. I performed an examination of the patient and discussed their management with the physician Executive Pastry Chef. I have reviewed the Physician Executive Pastry Chef's notes and agree with the documented findings and plan of care Patient Condition at Discharge: Stable Plan - Discharge Summary Discharge Rx Participant: No New Discharge Prescriptions: New amLODIPine [Norvasc] 5 mg PO DAILY #30 tab Multivitamins, Thera [Multivitamin (formulary)] 1 each PO DAILY@1200 #30 tab Thiamine [Vitamin B-1] 100 mg PO DAILY #30 tab Continue metFORMIN HCL 1,000 mg PO BID Nadolol [Corgard] 20 mg PO DAILY #30 tab Cholecalciferol [Vitamin D3] 1,000 unit PO DAILY cloNIDine HCL [Catapres] 0.1 mg PO BID #60 tab Aspirin [Children's Aspirin] 81 mg PO DAILY #30 tab.chew Magnesium Oxide [Mag-Ox] 400 mg PO HS Pantoprazole [Protonix] 40 mg PO BID Folic Acid 1 mg PO DAILY Ferrous Sulfate [Iron (65 MG Elemental)] 325 mg PO DAILY LORazepam [Ativan] 0.5 mg PO Q6HR PRN 3 Days #12 tab PRN Reason: Anxiety Discharge Medication List metFORMIN HCL 1,000 mg PO BID 09/23/17 [History] Nadolol [Corgard] 20 mg PO DAILY #30 tab 11/11/17 [Rx] Cholecalciferol [Vitamin D3] 1,000 unit PO DAILY 01/06/18 [History] Aspirin [Children's Aspirin] 81 mg PO DAILY #30 tab.chew 03/26/18 [Rx] cloNIDine HCL [Catapres] 0.1 mg PO BID #60 tab 03/26/18 [Rx] Ferrous Sulfate [Iron (65 MG Elemental)] 325 mg PO DAILY 04/24/18 [History] Folic Acid 1 mg PO DAILY 04/24/18 [History] Magnesium Oxide [Mag-Ox] 400 mg PO HS 04/24/18 [History] Pantoprazole [Protonix] 40 mg PO BID 04/24/18 [History] LORazepam [Ativan] 0.5 mg PO Q6HR PRN 3 Days #12 tab 05/06/18 [Rx] Multivitamins, Thera [Multivitamin (formulary)] 1 each PO DAILY@1200 #30 tab [Rx] Thiamine [Vitamin B-1] 100 mg PO DAILY #30 tab 05/06/18 [Rx] amLODIPine [Norvasc] 5 mg PO DAILY #30 tab 05/06/18 [Rx] Follow up Appointment(s)/Referral(s): Yoon Phillips DO [Primary Care Provider] - 1 Week Patient Instructions/Handouts: At-Risk Alcohol Use (DC), Hypertension (DC) Discharge Disposition: HOME SELF-CARE
[2018-05-06 15:52] VITALS: BP 118/84; PULSE 84; TEMP 97.8
[2018-05-06 16:03] LABS: Glucose,Whole Blood 106 mg/dL (75-99)
== END 2018-05-06 18:57 | disposition home or self-care (01) | DRG 897 ==
LOC: EC 05:59 → 3SCARD 10:01
PROVIDERS: ADMIT Internal Medicine; ATTEND Internal Medicine
DX: F10.239 Alcohol dependence with withdrawal, unspecified (principal); I47.1 Supraventricular tachycardia; I16.1 Hypertensive emergency; K76.6 Portal hypertension; J94.2 Hemothorax; R07.89 Other chest pain; E83.42 Hypomagnesemia; I10 Essential (primary) hypertension; E11.9 Type 2 diabetes mellitus without complications; E78.5 Hyperlipidemia, unspecified; E87.6 Hypokalemia; E87.70 Fluid overload, unspecified; D69.59 Other secondary thrombocytopenia; F32.9 Major depressive disorder, single episode, unspecified; F41.9 Anxiety disorder, unspecified; I11.9 Hypertensive heart disease without heart failure; I48.0 Paroxysmal atrial fibrillation; J44.9 Chronic obstructive pulmonary disease, unspecified; K21.9 Gastro-esophageal reflux disease without esophagitis; K70.30 Alcoholic cirrhosis of liver without ascites; E55.9 Vitamin D deficiency, unspecified; R19.7 Diarrhea, unspecified; Y90.0 Blood alcohol level of less than 20 mg/100 ml; Z79.82 Long term (current) use of aspirin; Z79.84 Long term (current) use of oral hypoglycemic drugs; Z79.899 Other long term (current) drug therapy; Z82.3 Family history of stroke; Z82.5 Family history of asthma and other chronic lower respiratory diseases; Z85.46 Personal history of malignant neoplasm of prostate; Z86.711 Personal history of pulmonary embolism; Z86.73 Personal history of transient ischemic attack (TIA), and cerebral infarction without residual deficits; Z90.49 Acquired absence of other specified parts of digestive tract
CPT/HCPCS: 36415; 71046; 80053; 80061; 80320; 82550; 82553; 83735; 84484; 85025; 85610; 85730; 93005; 94640; 94760; 96361; 96365; 96372; 96375; 96376; 99285

== ENCOUNTER 2018-05-23 10:05 | Inpatient (IN) | payer OTHER ==
[2018-05-23] MEDS ORDERED: SODIUM CHLORIDE 0.9% 1,000 ML IV STA ×2 (10:22)
[2018-05-23] MEDS ORDERED: LORazepam 2 MG/ML INJ IV STA (10:22)
--- NOTE | 2018-05-23 10:28 | ED ---
Alcohol HPI - General Chief Complaint: Alcohol Stated Complaint: ETOH Time Seen by Provider: 05/23/18 10:09 Source: patient, RN notes reviewed, old records reviewed Mode of arrival: EMS Limitations: no limitations - History of Present Illness Initial Comments: Patient is a 63-year-old male with history of all calls and presents emergency department today with complaints of rapid heart rate in withdrawals. Patient states that he has been some urgency department multiple times for similar complaints. Patient states he drank a fifth of alcohol last night around 6 PM. Patient states that he was trying to quit on his own. Patient states that he has felt like his heart will "start, and then stop and flutter". Patient states that he complains of some difficulty breathing. He denies any specific chest pain at this time. Patient states that he has had chronic abdominal pain.Patient denies any recent fever, chills, numbness or tingling, dysuria or hematuria, constipation or diarrhea, headaches or visual changes, or any other current symptoms - Related Data Home Medications Medication Instructions Recorded Confirmed metFORMIN HCL 1,000 mg PO BID 09/23/17 05/23/18 Cholecalciferol [Vitamin D3] 1,000 unit PO DAILY 01/06/18 05/23/18 Ferrous Sulfate [Iron (65 MG 325 mg PO DAILY 04/24/18 05/23/18 Elemental)] Folic Acid 1 mg PO DAILY 04/24/18 05/23/18 Magnesium Oxide [Mag-Ox] 400 mg PO HS 04/24/18 05/23/18 Pantoprazole [Protonix] 40 mg PO BID 04/24/18 05/23/18 Previous Rx's Medication Instructions Recorded Nadolol [Corgard] 20 mg PO DAILY #30 tab 11/11/17 Aspirin [Children's Aspirin] 81 mg PO DAILY #30 tab.chew 03/26/18 cloNIDine HCL [Catapres] 0.1 mg PO BID #60 tab 03/26/18 LORazepam [Ativan] 0.5 mg PO Q6HR PRN 3 Days #12 tab 05/06/18 Allergies Allergy/AdvReac Type Severity Reaction Status Date / Time adhesive tape Allergy Rash/Hives Verified 05/23/18 11:22 egg AdvReac Nausea & Verified 05/23/18 11:22 Vomiting lisinopril AdvReac EYES Verified 05/23/18 11:22 BURN&ITCH/WEAKNESS tomato AdvReac Nausea & Verified 05/23/18 11:22 Vomiting & Diarrhea Review of Systems ROS Statement: Those systems with pertinent positive or pertinent negative responses have been documented in the HPI. ROS Other: All systems not noted in ROS Statement are negative. Past Medical History Past Medical History: Atrial Fibrillation, Cancer, Chest Pain / Angina, COPD, CVA/TIA, Diabetes Mellitus, GERD/Reflux, GI Bleed, Hyperlipidemia, Hypertension , Pneumonia, Prostate Disorder, Pulmonary Embolus (PE) Additional Past Medical History / Comment(s): Pt recently admitted to [facility] on with tachycardia/palpitations likely d/t alcohol withdrawal. Other hx : Alcoholism, chronic alcoholic cirrhosis with portal hypertension and previous history of upper and lower GI bleeding, esophageal varices, previous history of childhood seizure which he outgrew not taking any antiepileptic medication-possibly had recent seizure-2018 thought d/t alcohol withdrawal, pulmonary embolism x 2 R lung, TIA, diverticulosis, chronic lower bilateral extremity ankle edema if he walks alot, previous history of septicemia, cervical disc disease with chronic back pain with r sided sciatica, degenerative arthritis involving the lower back, tinnitus, vitamin D deficiency , iron anemia, chronic thrombocytopenia. pt had radiation 04/28 for prostate cancer History of Any Multi-Drug Resistant Organisms: None Reported Past Surgical History: Appendectomy, Cholecystectomy Additional Past Surgical History / Comment(s): EGDs/esophageal varicies bandings , colonoscopies. Past Anesthesia/Blood Transfusion Reactions: No Reported Reaction Additional Past Anesthesia/Blood Transfusion Reaction / Comment(s): after appendix removed sob Past Psychological History: Anxiety, Depression Smoking Status: Never smoker Past Alcohol Use History: Abuse, Daily Past Drug Use History: None Reported - Past Family History Mother Family Medical History: COPD, CVA/TIA, Dementia Additional Family Medical History / Comment(s): from a stroke Father Family Medical History: Pneumonia Additional Family Medical History / Comment(s): Father of pneumonia when he was close to 80 yrs old. General Exam - General Exam Comments Initial Comments: This is a 63-year-old male. Alert and oriented. Limitations: no limitations General appearance: alert, in no apparent distress Head exam: Present: atraumatic, normocephalic, normal inspection Eye exam: Present: normal appearance, PERRL, EOMI. Absent: scleral icterus, conjunctival injection, periorbital swelling ENT exam: Present: normal exam, mucous membranes moist Neck exam: Present: normal inspection. Absent: tenderness, meningismus, lymphadenopathy Respiratory exam: Present: normal lung sounds bilaterally. Absent: respiratory distress, wheezes, rales, rhonchi, stridor Cardiovascular Exam: Present: normal rhythm, tachycardia, normal heart sounds. Absent: regular rate, systolic murmur, diastolic murmur, rubs, gallop, clicks GI/Abdominal exam: Present: soft, normal bowel sounds. Absent: distended, tenderness, guarding, rebound, rigid Extremities exam: Present: normal inspection, full ROM, normal capillary refill. Absent: tenderness, pedal edema, joint swelling, calf tenderness Back exam: Present: normal inspection Neurological exam: Present: alert, oriented X3, CN II-XII intact Psychiatric exam: Present: normal affect, normal mood Skin exam: Present: warm, dry, intact, normal color. Absent: rash Course Vital Signs 05/23/18 05/23/18 05/23/18 10:09 10:30 10:42 Temperature 98.7 F Pulse Rate 125 H 125 H Pulse Rate [ 125 H Pulse Oximetery ] Respiratory 20 18 Rate Blood Pressure 159/87 159/87 O2 Sat by Pulse 97 93 L Oximetry 05/23/18 05/23/18 05/23/18 11:00 11:30 12:00 Temperature Pulse Rate 128 H 122 H 125 H Pulse Rate [ Pulse Oximetery ] Respiratory 16 15 19 Rate Blood Pressure 125/92 129/90 140/90 O2 Sat by Pulse 94 L 95 91 L Oximetry 05/23/18 12:30 Temperature Pulse Rate 128 H Pulse Rate [ Pulse Oximetery ] Respiratory 20 Rate Blood Pressure 152/94 O2 Sat by Pulse 96 Oximetry Medical Decision Making - Medical Decision Making Patient is a 63-year-old male with presents murmurs first today with alcohol withdrawal. He states he also feels that his heart is having palpitations. This time he continues to be tachycardic after 2 L bolus. 130 bpm heart rate. He was given 2 mg of Ativan. I'll call levels 238. This time Patient is labs including troponin were negative. Chest x-rays unremarkable. Due to continued elevated heart rate 133 would admit the Patient for withdrawals, tachycardia. Patient agrees to admission. Dr. Dominguez discussed the case with Dr. Finney. - Lab Data Result diagrams: 05/23/18 10:26 05/23/18 10:26 Lab Results 05/23/18 05/23/18 05/23/18 Range/Units 10:26 10:26 10:26 WBC 9.1 (3.8-10.6) k/uL RBC 4.46 (4.30-5.90) m/uL Hgb 13.3 (13.0-17.5) gm/dL Hct 42.0 (39.0-53.0) % MCV 94.2 (80.0-100.0) fL MCH 29.9 (25.0-35.0) pg MCHC 31.7 (31.0-37.0) g/dL RDW 17.6 H (11.5-15.5) % Plt Count 213 (150-450) k/uL Neutrophils % 75 % Lymphocytes % 18 % Monocytes % 5 % Eosinophils % 1 % Basophils % 0 % Neutrophils # 6.9 (1.3-7.7) k/uL Lymphocytes # 1.6 (1.0-4.8) k/uL Monocytes # 0.5 (0-1.0) k/uL Eosinophils # 0.0 (0-0.7) k/uL Basophils # 0.0 (0-0.2) k/uL Anisocytosis Slight PT 11.5 (9.0-12.0) sec INR 1.1 (<1.2) Sodium 147 H (137-145) mmol/L Potassium 4.2 (3.5-5.1) mmol/L Chloride 109 H (98-107) mmol/L Carbon Dioxide 25 (22-30) mmol/L Anion Gap 13 mmol/L BUN 10 (9-20) mg/dL Creatinine 0.81 (0.66-1.25) mg/dL Est GFR (CKD-EPI)AfAm >90 (>60 ml/min/1.73 sqM) Est GFR (CKD-EPI)NonAf >90 (>60 ml/min/1.73 sqM) Glucose 146 H (74-99) mg/dL POC Glucose (mg/dL) (75-99) mg/dL POC Glu Candle Molder Hand ID Calcium 8.7 (8.4-10.2) mg/dL Magnesium 1.5 L (1.6-2.3) mg/dL Total Bilirubin 0.8 (0.2-1.3) mg/dL AST 62 H (17-59) U/L ALT 40 (21-72) U/L Alkaline Phosphatase 123 (38-126) U/L Troponin I (0.000-0.034) ng/mL Total Protein 7.9 (6.3-8.2) g/dL Albumin 3.9 (3.5-5.0) g/dL Amylase 102 (30-110) U/L Lipase 119 (23-300) U/L Serum Alcohol 238 H* mg/dL 05/23/18 05/23/18 Range/Units 10:26 10:40 WBC (3.8-10.6) k/uL RBC (4.30-5.90) m/uL Hgb (13.0-17.5) gm/dL Hct (39.0-53.0) % MCV (80.0-100.0) fL MCH (25.0-35.0) pg MCHC (31.0-37.0) g/dL RDW (11.5-15.5) % Plt Count (150-450) k/uL Neutrophils % % Lymphocytes % % Monocytes % % Eosinophils % % Basophils % % Neutrophils # (1.3-7.7) k/uL Lymphocytes # (1.0-4.8) k/uL Monocytes # (0-1.0) k/uL Eosinophils # (0-0.7) k/uL Basophils # (0-0.2) k/uL Anisocytosis PT (9.0-12.0) sec INR (<1.2) Sodium (137-145) mmol/L Potassium (3.5-5.1) mmol/L Chloride (98-107) mmol/L Carbon Dioxide (22-30) mmol/L Anion Gap mmol/L BUN (9-20) mg/dL Creatinine (0.66-1.25) mg/dL Est GFR (CKD-EPI)AfAm (>60 ml/min/1.73 sqM) Est GFR (CKD-EPI)NonAf (>60 ml/min/1.73 sqM) Glucose (74-99) mg/dL POC Glucose (mg/dL) 132 H (75-99) mg/dL POC Glu Candle Molder Hand ID Arielle Hogan Calcium (8.4-10.2) mg/dL Magnesium (1.6-2.3) mg/dL Total Bilirubin (0.2-1.3) mg/dL AST (17-59) U/L ALT (21-72) U/L Alkaline Phosphatase (38-126) U/L Troponin I <0.012 (0.000-0.034) ng/mL Total Protein (6.3-8.2) g/dL Albumin (3.5-5.0) g/dL Amylase (30-110) U/L Lipase (23-300) U/L Serum Alcohol mg/dL 05/23/18 10:28 Sinus tachycardia, moderate voltage criteria for LVH which may be normal variant. Borderline EKG. Ventricular rate of 126 bpm. MD interval is 1:30 milliseconds. QRS duration 60 ms. QT QTc is 304/440 ms. - Radiology Data Radiology results: report reviewed Chest x-ray shows cardiomegaly with chronic changes without any acute pulmonary process. Disposition Clinical Impression: Alcohol abuse, Tachycardia Disposition: ADMITTED IP TO THIS HOSP Condition: Stable Is patient prescribed a controlled substance at d/c from ED?: No Referrals: Yoon Phillips DO [Primary Care Provider] - 1-2 days Time of Disposition: 13:39
[2018-05-23 10:42] LABS: Glucose,Whole Blood 132 mg/dL (75-99)
[2018-05-23 10:53] LABS: Anisocytosis Slight; Basophils % (A) 0 %; Eosinophils % (A) 1 %; HGB 13.3 gm/dL (13.0-17.5); Lymphocytes # (A) 1.6 k/uL (1.0-4.8); Lymphocytes % (A) 18 %; MCH 29.9 pg (25.0-35.0); MCHC 31.7 g/dL (31.0-37.0); MCV 94.2 fL (80.0-100.0); Monocytes # (A) 0.5 k/uL (0-1.0); Monocytes % (A) 5 %; Neutrophils # (A) 6.9 k/uL (1.3-7.7); Neutrophils % (A) 75 %; Platelet Count 213 k/uL (150-450); RBC 4.46 m/uL (4.30-5.90); RDW 17.6 % (11.5-15.5); WBC 9.1 k/uL (3.8-10.6)
[2018-05-23 11:00] LABS: INR 1.1 (<1.2); Prothrombin Time 11.5 sec (9.0-12.0)
[2018-05-23 11:01] LABS: ALT 40 U/L (21-72); AST 62 U/L (17-59); Albumin 3.9 g/dL (3.5-5.0); Alkaline Phosphatase 123 U/L (38-126); Amylase 102 U/L (30-110); Anion Gap 13 mmol/L; Blood Urea Nitrogen 10 mg/dL (9-20); Calcium 8.7 mg/dL (8.4-10.2); Carbon Dioxide 25 mmol/L (22-30); Chloride 109 mmol/L (98-107); Glucose 146 mg/dL (74-99); Lipase 119 U/L (23-300); Magnesium 1.5 mg/dL (1.6-2.3); Potassium 4.2 mmol/L (3.5-5.1); Sodium 147 mmol/L (137-145); Total Bilirubin 0.8 mg/dL (0.2-1.3); Total Protein 7.9 g/dL (6.3-8.2)
[2018-05-23 11:07] LABS: Alcohol 238 mg/dL
--- NOTE | 2018-05-23 11:33 | XR ---
EXAMINATION TYPE: XR chest 2V DATE OF EXAM: 05/23/2018 COMPARISON: Chest x-ray May 03, 2018. HISTORY: Chest pain. TECHNIQUE: Frontal and lateral views of the chest are obtained. FINDINGS: There is no focal air space opacity, pleural effusion, or pneumothorax seen. Left-sided m ediastinal shift is redemonstrated. The cardiac silhouette size is stable and mildly enlarged. The osseous structures are intact. IMPRESSION: Cardiomegaly an chronic changes without acute pulmonary process.
[2018-05-23] MEDS ORDERED: MAGNESIUM OXIDE 400 MG TAB PO STA (11:56)
[2018-05-23] MEDS ORDERED: LORazepam 2 MG/ML INJ IV PRN (13:37)
[2018-05-23] MEDS ORDERED: THIAMINE 100 MG/ML 2 ML VIAL IM STA (13:37)
[2018-05-23] MEDS ORDERED: NALOXONE 0.4 MG/ML 1 ML VIAL IV PRN (13:39)
[2018-05-23] MEDS ORDERED: SODIUM CHLORIDE 0.9% 1,000 ML IV SCH (13:45)
[2018-05-23] MEDS: LORazepam 2 MG/ML INJ IV PRN ×3 (13:47→23:39)
--- NOTE | 2018-05-23 14:42 | P.HPIM ---
History of Present Illness H&P Date: 05/23/18 Chief Complaint: Heart palpitations This is a 63-year-old male, patient of [facility]. 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 Patient has had multiple hospitalizations due to alcohol withdrawal. Last hospitalization was just in April. Patient reports that he has been drinking more frequently due to the holidays and being around his sister and brother who drink alcohol around him. Patient towards that he drank a fifth of whiskey last night. He presents to the emergency department with complaints of heart palpitation and shaking. He feels he is going through alcohol withdrawal. Patient was given IV fluids IV Ativan thiamine and will also be started on full casted and multivitamin. Patient's had reported some chest discomfort with a heart palpitations. EKG had shown sinus tachycardia with a heart rate of 126 troponin was negative chest x-ray negative. Patient admitted to the hospital with acute alcohol withdrawal. EtOH level elevated at 238. Patient does have a sodium level 147 and chloride 109. Magnesium low at 1.5. Patient receiving supplement. AST elevated at 62. Patient also has been having dry heaves no actual vomiting. Does report some abdominal discomfort. Also reported that he is not urinating as frequently as he usually does. Bladder scan will be checked for possible urinary retention. Urinalysis also has been ordered. Review of Systems Please refer to HPI otherwise unremarkable Past Medical History Past Medical History: Atrial Fibrillation, Cancer, Chest Pain / Angina, COPD, CVA/TIA, Diabetes Mellitus, GERD/Reflux, GI Bleed, Hyperlipidemia, Hypertension , Pneumonia, Prostate Disorder, Pulmonary Embolus (PE) Additional Past Medical History / Comment(s): Pt recently admitted to [facility] on with tachycardia/palpitations likely d/t alcohol withdrawal. Other hx : Alcoholism, chronic alcoholic cirrhosis with portal hypertension and previous history of upper and lower GI bleeding, esophageal varices, previous history of childhood seizure which he outgrew not taking any antiepileptic medication-possibly had recent seizure-2018 thought d/t alcohol withdrawal, pulmonary embolism x 2 R lung, TIA, diverticulosis, chronic lower bilateral extremity ankle edema if he walks alot, previous history of septicemia, cervical disc disease with chronic back pain with r sided sciatica, degenerative arthritis involving the lower back, tinnitus, vitamin D deficiency , iron anemia, chronic thrombocytopenia. pt had radiation th04/28 for prostate cancer History of Any Multi-Drug Resistant Organisms: None Reported Past Surgical History: Appendectomy, Cholecystectomy Additional Past Surgical History / Comment(s): EGDs/esophageal varicies bandings , colonoscopies. Past Anesthesia/Blood Transfusion Reactions: No Reported Reaction Additional Past Anesthesia/Blood Transfusion Reaction / Comment(s): after appendix removed sob Past Psychological History: Anxiety, Depression Smoking Status: Never smoker Past Alcohol Use History: Abuse, Daily Past Drug Use History: None Reported - Past Family History Mother Family Medical History: COPD, CVA/TIA, Dementia Additional Family Medical History / Comment(s): from a stroke Father Family Medical History: Pneumonia Additional Family Medical History / Comment(s): Father of pneumonia when he was close to 80 yrs old. Medications and Allergies Home Medications Medication Instructions Recorded Confirmed Type metFORMIN HCL 1,000 mg PO BID 09/23/17 05/23/18 History Nadolol [Corgard] 20 mg PO DAILY #30 tab 11/11/17 05/23/18 Rx Cholecalciferol [Vitamin D3] 1,000 unit PO DAILY 01/06/18 05/23/18 History Aspirin [Children's Aspirin] 81 mg PO DAILY #30 tab.chew 03/26/18 05/23/18 Rx cloNIDine HCL [Catapres] 0.1 mg PO BID #60 tab 03/26/18 05/23/18 Rx Ferrous Sulfate [Iron (65 MG 325 mg PO DAILY 04/24/18 05/23/18 History Elemental)] Folic Acid 1 mg PO DAILY 04/24/18 05/23/18 History Magnesium Oxide [Mag-Ox] 400 mg PO HS 04/24/18 05/23/18 History Pantoprazole [Protonix] 40 mg PO BID 04/24/18 05/23/18 History LORazepam [Ativan] 0.5 mg PO Q6HR PRN 3 Days #12 tab 05/06/18 05/23/18 Rx Allergies Allergy/AdvReac Type Severity Reaction Status Date / Time adhesive tape Allergy Rash/Hives Verified 05/23/18 11:22 egg AdvReac Nausea & Verified 05/23/18 11:22 Vomiting lisinopril AdvReac EYES Verified 05/23/18 11:22 BURN&ITCH/WEAKNESS tomato AdvReac Nausea & Verified 05/23/18 11:22 Vomiting & Diarrhea Physical Exam Vitals: Vital Signs Temp Pulse Pulse Resp BP Pulse Ox 05/23/18 12:30 128 H 20 152/94 96 05/23/18 12:00 125 H 19 140/90 91 L 05/23/18 11:30 122 H 15 129/90 95 05/23/18 11:00 128 H 16 125/92 94 L 05/23/18 10:42 125 H 05/23/18 10:30 125 H 18 159/87 93 L 05/23/18 10:09 98.7 F 125 H 20 159/87 97 Intake and Output 05/22/18 05/23/18 05/23/18 22:59 06:59 14:59 Other: Weight 73.482 kg Head normocephalic Neck supple Lungs clear to auscultation bilaterally no wheezing or crackles Heart tachycardic Abdomen is soft nontender nondistended positive bowel sounds no hepatosplenomegaly Extremities no edema Neuro alert and orientated to 3. Tremor in the hands bilaterally HEENT Poor oral hygiene Results CBC & Chem 7: 05/23/18 10:26 05/23/18 10:26 Labs: Abnormal Lab Results - Last 24 Hours (Table) 05/23/18 05/23/18 05/23/18 Range/Units 10:26 10:26 10:40 RDW 17.6 H (11.5-15.5) % Sodium 147 H (137-145) mmol/L Chloride 109 H (98-107) mmol/L Glucose 146 H (74-99) mg/dL POC Glucose (mg/dL) 132 H (75-99) mg/dL Magnesium 1.5 L (1.6-2.3) mg/dL AST 62 H (17-59) U/L Serum Alcohol 238 H* mg/dL Assessment and Plan Assessment: 1. Alcohol withdrawal and alcohol intoxication: Alcohol level 238 on admission. Start the CIWA protocol with IV Ativan. Continue multivitamin, thiamine and folate acid. Continue with IV fluid hydration. Consult social work 2. Hypernatremia: Sodium level 147. Likely related to patient's alcohol use. We'll switch IV fluids to 0.45 saline at 100 mL an hour. Repeat sodium level in a.m. 3. Possible urinary retention: Bladder scan patient. Check postvoid residual. Urinalysis. Continue with IV fluids 4. Sinus tachycardia secondary to alcohol withdrawal. Patient did not take the nadolol this morning. Restart nadolol now 5. Chest discomfort likely secondary to patient's sinus tachycardia. Troponin negative. EKG confirming sinus tachycardia 6. Hypomagnesemia: Patient received magnesium supplement. Repeat magnesium level in a.m. 7. History of alcohol liver cirrhosis with portal hypertension 8. History of esophageal varices with an EGD and ligation on 10/21/2017 9. History of PE 10. History of diabetes mellitus type 2. Resume metformin and sliding scale coverage 11. History of paroxysmal atrial fibrillation not on anticoagulation due to history of bleeding from his esophageal varices 12. History of COPD: Stable GI prophylaxis Protonix and DVT prophylaxis Lovenox Time with Patient: Greater than 30 (Greater than 50% of the total time spent in counseling and coordination of care.I performed an examination of the patient and discussed their management with the physician Barmaid. I have reviewed the Physician Barmaid's notes and agree with the documented findings and plan of care)
[2018-05-23 17:00] LABS: Glucose,Whole Blood 105 mg/dL (75-99)
[2018-05-23] MEDS ORDERED: THIAMINE 100 MG TAB PO SCH (17:00)
[2018-05-23] MEDS: MULTIVITAMINS, THERA 1 EACH TAB PO SCH (17:01)
[2018-05-23] MEDS: FOLIC ACID 1 MG TAB PO SCH (17:01)
[2018-05-23] MEDS: NADOLOL 20 MG TAB PO SCH (17:01)
[2018-05-23] MEDS: SODIUM CHLORIDE 0.45% 1,000 ML IV SCH (17:03)
[2018-05-23] MEDS: metFORMIN 500 MG TAB PO SCH (17:03)
[2018-05-23] MEDS: INSULIN ASPART 100 UNIT/ML 1 ML 10 ML VIAL SQ SCH ×2 (17:04→20:42)
[2018-05-23 17:18] LABS: Amphetamine Screen,Urine Not Detected (NotDetected); Barbiturate Screen,Urine Not Detected (NotDetected); Benzodiazepines Screen,Urine Detected (NotDetected); Cocaine Screen,Urine Not Detected (NotDetected); Methadone Screen, Urine Not Detected (NotDetected); Opiate Screen,Urine Not Detected (NotDetected); Oxycodone Screen, Urine Not Detected (NotDetected); Phencyclidine Screen,Urine Not Detected (NotDetected); Tricyclic Antidepressant,Urine Not Detected (NotDetected); Urn Cannabinoid Scrn Not Detected (NotDetected)
[2018-05-23 17:28] LABS: Appearance,Urine Clear (Clear); Bilirubin,Urine Negative (Negative); Blood,Urine Negative (Negative); Color,Urine Yellow; Glucose,Urine (UA) Negative (Negative); Ketones,Urine Negative (Negative); Leukocyte Esterase,Urine Negative (Negative); Nitrite,Urine Negative (Negative); PH, Urine 5.5 (5.0-8.0); Protein,Urine Negative (Negative); Specific Gravity,Urine 1.016 (1.001-1.035); Urobilinogen,Urine <2.0 mg/dL (<2.0)
[2018-05-23 20:10] LABS: Glucose,Whole Blood 133 mg/dL (75-99)
[2018-05-23] MEDS: cloNIDine HCL 0.1 MG TAB PO SCH (20:42)
[2018-05-23] MEDS: MAGNESIUM OXIDE 400 MG TAB PO SCH (20:43)
[2018-05-23] MEDS: ONDANSETRON 4 MG/2 ML VIAL IVP PRN (23:38)
[2018-05-24] MEDS: SODIUM CHLORIDE 0.45% 1,000 ML IV SCH ×3 (06:13→22:03)
[2018-05-24 06:54] LABS: Glucose,Whole Blood 101 mg/dL (75-99)
[2018-05-24] MEDS: ENOXAPARIN 40 MG/0.4 ML SYRINGE SQ SCH (08:57)
[2018-05-24] MEDS: LORazepam 2 MG/ML INJ IV PRN ×3 (08:57→22:13)
[2018-05-24] MEDS: THIAMINE 100 MG TAB PO SCH (08:58)
[2018-05-24] MEDS: metFORMIN 500 MG TAB PO SCH ×2 (08:58→16:54)
[2018-05-24] MEDS: cloNIDine HCL 0.1 MG TAB PO SCH ×2 (08:58→22:06)
[2018-05-24] MEDS: ASPIRIN 81 MG PO SCH (08:58)
[2018-05-24] MEDS: CHOLECALCIFEROL 1,000 UNIT TAB PO SCH (08:58)
[2018-05-24] MEDS: FOLIC ACID 1 MG TAB PO SCH (08:58)
[2018-05-24] MEDS: FERROUS SULFATE 325 MG TAB PO SCH (08:58)
[2018-05-24] MEDS: INSULIN ASPART 100 UNIT/ML 1 ML 10 ML VIAL SQ SCH ×4 (08:59→22:06)
[2018-05-24] MEDS ORDERED: PANTOPRAZOLE 40 MG/10 ML VIAL IV SCH (09:00)
[2018-05-24 09:14] LABS: Anisocytosis Slight; Basophils % (A) 0 %; Eosinophils # (A) 0.2 k/uL (0-0.7); Eosinophils % (A) 2 %; HCT 38.9 % (39.0-53.0); HGB 12.6 gm/dL (13.0-17.5); Lymphocytes # (A) 1.8 k/uL (1.0-4.8); Lymphocytes % (A) 23 %; MCH 30.4 pg (25.0-35.0); MCHC 32.5 g/dL (31.0-37.0); MCV 93.5 fL (80.0-100.0); Mean Platelet Volume 7.5; Monocytes # (A) 0.4 k/uL (0-1.0); Monocytes % (A) 5 %; Neutrophils # (A) 5.1 k/uL (1.3-7.7); Neutrophils % (A) 68 %; Platelet Count 141 k/uL (150-450); RBC 4.16 m/uL (4.30-5.90); RDW 16.7 % (11.5-15.5); WBC 7.6 k/uL (3.8-10.6)
[2018-05-24 09:28] LABS: ALT 31 U/L (21-72); AST 51 U/L (17-59); Albumin 3.6 g/dL (3.5-5.0); Alkaline Phosphatase 125 U/L (38-126); Anion Gap 10 mmol/L; Blood Urea Nitrogen 10 mg/dL (9-20); Calcium 9.2 mg/dL (8.4-10.2); Carbon Dioxide 25 mmol/L (22-30); Chloride 102 mmol/L (98-107); Glucose 148 mg/dL (74-99); Magnesium 1.3 mg/dL (1.6-2.3); Potassium 3.7 mmol/L (3.5-5.1); Sodium 137 mmol/L (137-145); Total Protein 7.2 g/dL (6.3-8.2)
[2018-05-24] MEDS: NADOLOL 20 MG TAB PO SCH (10:05)
[2018-05-24 11:52] LABS: Glucose,Whole Blood 92 mg/dL (75-99)
[2018-05-24] MEDS: MAGNESIUM SULFATE-D5W PMX 1 GM in DEXTROSE/WATER 1 100ML.BAG IVPB SCH ×2 (13:31→15:52)
--- NOTE | 2018-05-24 13:31 | P.PN ---
Subjective Progress Note Date: 05/24/18 This is a 63-year-old male, patient of [facility]. 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 Patient has had multiple hospitalizations due to alcohol withdrawal. Last hospitalization was just in April. Patient reports that he has been drinking more frequently due to the holidays and being around his sister and brother who drink alcohol around him. Patient towards that he drank a fifth of whiskey last night. He presents to the emergency department with complaints of heart palpitation and shaking. He feels he is going through alcohol withdrawal. Patient was given IV fluids IV Ativan thiamine and will also be started on full casted and multivitamin. Patient's had reported some chest discomfort with a heart palpitations. EKG had shown sinus tachycardia with a heart rate of 126 troponin was negative chest x-ray negative. Patient admitted to the hospital with acute alcohol withdrawal. EtOH level elevated at 238. Patient does have a sodium level 147 and chloride 109. Magnesium low at 1.5. Patient receiving supplement. AST elevated at 62. Patient also has been having dry heaves no actual vomiting. Does report some abdominal discomfort. Also reported that he is not urinating as frequently as he usually does. Bladder scan will be checked for possible urinary retention. Urinalysis also has been ordered. 05/24/2018 patient's heart rate has improved. Sodium level also improved down to 137. Urinalysis is negative for infection. Drug screen positive for benzodiazepine. Patient is complaining of diarrhea about 4-5 stools during the day. Stool for C. diff has been ordered. Magnesium being replaced. Patient denies any chest pain, shortness breath, vomiting or urinary symptoms. He still has having some dry heaves. Still requiring IV Ativan for withdrawal symptoms Objective - Vital Signs Vital signs: Vital Signs Temp 98.0 F 05/24/18 09:09 Pulse 87 05/24/18 09:09 Resp 15 05/24/18 09:09 BP 152/89 05/24/18 09:09 Pulse Ox 94 L 05/24/18 09:09 Intake & Output 05/23/18 05/24/18 05/24/18 18:59 06:59 18:59 Intake Total 1000 Balance 1000 Weight 73.482 kg Intake: Intake, IV Titration 1000 Amount Sodium Chloride 0.9% 1, 1000 000 ml @ 100 mls/hr IV . Q10H COUNTS INCLUDE 234 BEDS AT THE [facility] Rx#:[id number] Other: # Bowel Movements 3 - Exam Head normocephalic Neck supple Lungs clear to auscultation bilaterally no wheezing or crackles Heart regular rate and rhythm S1-S2, no rub or gallop Abdomen is soft nontender nondistended positive bowel sounds no hepatosplenomegaly Extremities no edema Neuro alert and orientated to 3 positive tremor noted bilateral hands - Labs CBC & Chem 7: 05/24/18 08:32 05/24/18 08:32 Labs: Abnormal Lab Results - Last 24 Hours (Table) 05/23/18 05/23/18 05/23/18 Range/Units 16:57 17:05 20:08 RBC (4.30-5.90) m/uL Hgb (13.0-17.5) gm/dL Hct (39.0-53.0) % RDW (11.5-15.5) % Plt Count (150-450) k/uL Glucose (74-99) mg/dL POC Glucose (mg/dL) 105 H 133 H (75-99) mg/dL Magnesium (1.6-2.3) mg/dL Total Bilirubin (0.2-1.3) mg/dL U Benzodiazepines Scrn Detected H (NotDetected) 05/24/18 05/24/18 05/24/18 Range/Units 06:53 08:32 08:32 RBC 4.16 L (4.30-5.90) m/uL Hgb 12.6 L (13.0-17.5) gm/dL Hct 38.9 L (39.0-53.0) % RDW 16.7 H (11.5-15.5) % Plt Count 141 L (150-450) k/uL Glucose 148 H (74-99) mg/dL POC Glucose (mg/dL) 101 H (75-99) mg/dL Magnesium 1.3 L (1.6-2.3) mg/dL Total Bilirubin 2.0 H (0.2-1.3) mg/dL U Benzodiazepines Scrn (NotDetected) Assessment and Plan Assessment: 1. Alcohol withdrawal and alcohol intoxication: Alcohol level 238 on admission. Start the CIWA protocol with IV Ativan. Continue multivitamin, thiamine and folate acid. Continue with IV fluid hydration. Consult social work 2. Hypernatremia: Sodium level 147. Likely related to patient's alcohol use. We'll switch IV fluids to 0.45 saline at 100 mL an hour. Repeat sodium level normal at 137 3. Possible urinary retention: Bladder scan patient. Check postvoid residual. Urinalysis negative. Continue with IV fluids. Patient reporting now urinating without difficulty. Still awaiting bladder scan results discussed with nursing staff. 4. Sinus tachycardia secondary to alcohol withdrawal. Patient did not take the nadolol this morning. Restart nadolol now 5. Chest discomfort likely secondary to patient's sinus tachycardia. Troponin negative. EKG confirming sinus tachycardia 6. Hypomagnesemia: Magnesium 1.3. Patient received magnesium supplement. Repeat magnesium level in a.m. 7. History of alcohol liver cirrhosis with portal hypertension 8. History of esophageal varices with an EGD and ligation on 10/21/2017 9. History of PE 10. History of diabetes mellitus type 2. Resume metformin and sliding scale coverage 11. History of paroxysmal atrial fibrillation not on anticoagulation due to history of bleeding from his esophageal varices 12. History of COPD: Stable 13. Diarrhea check stool for C. diff GI prophylaxis Protonix and DVT prophylaxis Lovenox I performed an examination of the patient and discussed their management with the physician Medical Lab Scientist. I have reviewed the Physician Medical Lab Scientist's notes and agree with the documented findings and plan of care
[2018-05-24] MEDS: MULTIVITAMINS, THERA 1 EACH TAB PO SCH (13:33)
[2018-05-24 16:50] LABS: Glucose,Whole Blood 117 mg/dL (75-99)
[2018-05-24 20:27] LABS: Glucose,Whole Blood 113 mg/dL (75-99)
[2018-05-24] MEDS: MAGNESIUM OXIDE 400 MG TAB PO SCH (22:06)
[2018-05-25] MEDS ORDERED: VANCOMYCIN ORAL SOLUTION 250 MG/5 ML BOTTLE PO SCH (01:00)
[2018-05-25] MEDS: CHERRY FLAVOR 60 ML BOTTLE PO SCH ×4 (05:55→17:47)
[2018-05-25] MEDS: VANCOMYCIN ORAL SOLUTION 250 MG/5 ML BOTTLE PO SCH ×3 (06:24→17:47)
[2018-05-25 07:16] LABS: Glucose,Whole Blood 108 mg/dL (75-99)
[2018-05-25] MEDS: INSULIN ASPART 100 UNIT/ML 1 ML 10 ML VIAL SQ SCH ×4 (07:40→21:06)
[2018-05-25 08:38] LABS: Anisocytosis Slight; Basophils % (A) 0 %; Eosinophils # (A) 0.1 k/uL (0-0.7); Eosinophils % (A) 2 %; HCT 37.1 % (39.0-53.0); HGB 12.4 gm/dL (13.0-17.5); Lymphocytes # (A) 1.6 k/uL (1.0-4.8); Lymphocytes % (A) 27 %; MCH 31.3 pg (25.0-35.0); MCHC 33.4 g/dL (31.0-37.0); MCV 93.8 fL (80.0-100.0); Mean Platelet Volume 7.2; Monocytes # (A) 0.3 k/uL (0-1.0); Monocytes % (A) 5 %; Neutrophils # (A) 3.8 k/uL (1.3-7.7); Neutrophils % (A) 64 %; Platelet Count 130 k/uL (150-450); RBC 3.96 m/uL (4.30-5.90); RDW 16.2 % (11.5-15.5); WBC 5.9 k/uL (3.8-10.6)
[2018-05-25] MEDS: ENOXAPARIN 40 MG/0.4 ML SYRINGE SQ SCH (08:48)
[2018-05-25] MEDS: CHOLECALCIFEROL 1,000 UNIT TAB PO SCH (08:48)
[2018-05-25] MEDS: metFORMIN 500 MG TAB PO SCH ×2 (08:48→17:19)
[2018-05-25] MEDS: NADOLOL 20 MG TAB PO SCH (08:48)
[2018-05-25] MEDS: FERROUS SULFATE 325 MG TAB PO SCH (08:48)
[2018-05-25] MEDS: FOLIC ACID 1 MG TAB PO SCH (08:49)
[2018-05-25] MEDS: cloNIDine HCL 0.1 MG TAB PO SCH ×2 (08:49→22:06)
[2018-05-25] MEDS: PANTOPRAZOLE 40 MG TABLET PO SCH (08:49)
[2018-05-25] MEDS: MULTIVITAMINS, THERA 1 EACH TAB PO SCH (08:49)
[2018-05-25] MEDS: ASPIRIN 81 MG PO SCH (08:49)
[2018-05-25] MEDS: THIAMINE 100 MG TAB PO SCH (08:49)
[2018-05-25 08:51] LABS: ALT 36 U/L (21-72); AST 37 U/L (17-59); Albumin 3.1 g/dL (3.5-5.0); Alkaline Phosphatase 124 U/L (38-126); Anion Gap 7 mmol/L; Blood Urea Nitrogen 15 mg/dL (9-20); Calcium 8.7 mg/dL (8.4-10.2); Carbon Dioxide 26 mmol/L (22-30); Chloride 106 mmol/L (98-107); Glucose 104 mg/dL (74-99); Magnesium 1.4 mg/dL (1.6-2.3); Potassium 3.5 mmol/L (3.5-5.1); Sodium 139 mmol/L (137-145); Total Bilirubin 0.9 mg/dL (0.2-1.3); Total Protein 6.7 g/dL (6.3-8.2)
[2018-05-25] MEDS: SODIUM CHLORIDE 0.45% 1,000 ML IV SCH ×2 (08:54→17:19)
--- NOTE | 2018-05-25 10:09 | P.PN ---
Subjective Progress Note Date: 05/25/18 This is a 63-year-old male, patient of [facility]. 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 Patient has had multiple hospitalizations due to alcohol withdrawal. Last hospitalization was just in April. Patient reports that he has been drinking more frequently due to the holidays and being around his sister and brother who drink alcohol around him. Patient towards that he drank a fifth of whiskey last night. He presents to the emergency department with complaints of heart palpitation and shaking. He feels he is going through alcohol withdrawal. Patient was given IV fluids IV Ativan thiamine and will also be started on full casted and multivitamin. Patient's had reported some chest discomfort with a heart palpitations. EKG had shown sinus tachycardia with a heart rate of 126 troponin was negative chest x-ray negative. Patient admitted to the hospital with acute alcohol withdrawal. EtOH level elevated at 238. Patient does have a sodium level 147 and chloride 109. Magnesium low at 1.5. Patient receiving supplement. AST elevated at 62. Patient also has been having dry heaves no actual vomiting. Does report some abdominal discomfort. Also reported that he is not urinating as frequently as he usually does. Bladder scan will be checked for possible urinary retention. Urinalysis also has been ordered. 05/24/2018 patient's heart rate has improved. Sodium level also improved down to 137. Urinalysis is negative for infection. Drug screen positive for benzodiazepine. Patient is complaining of diarrhea about 4-5 stools during the day. Stool for C. diff has been ordered. Magnesium being replaced. Patient denies any chest pain, shortness breath, vomiting or urinary symptoms. He still has having some dry heaves. Still requiring IV Ativan for withdrawal symptoms On 05/25/2018 patient was seen and examined on the medical floor he is alert and oriented 3 in no apparent distress he is complaining of diarrhea and lower abdominal pain and discomfort otherwise he denies any complaints there is no fever or chills no headache no dizziness no chest pain no shortness of breath no cough no nausea or vomiting and no urinary symptoms. Clostridium difficile results came back positive last night patient was started on oral vancomycin. Today he had 4 bouts of diarrhea this morning. Objective - Vital Signs Vital signs: Vital Signs Temp 98.5 F 05/25/18 07:00 Pulse 83 05/25/18 07:00 Resp 12 05/25/18 07:00 BP 137/85 05/25/18 07:00 Pulse Ox 95 05/25/18 07:00 Intake & Output 05/24/18 05/25/18 05/25/18 18:59 06:59 18:59 Intake Total 900 250 Output Total 170 Balance 900 80 Intake: Intake, IV Titration 900 Amount Magnesium Sulfate-D5w Pmx 100 1 gm In Dextrose/Water 1 100ml.bag @ 100 mls/hr IVPB Q1H TANYA Rx#: [id number] Sodium Chloride 0.45% 1, 800 000 ml @ 100 mls/hr IV . Q10H TANYA Rx#:[id number] Oral 250 Output: Post Void Residual 170 Other: # Voids 1 # Bowel Movements 2 - Exam Head normocephalic and atraumatic Neck supple no JVD no goiter Lungs clear to auscultation bilaterally no wheezing or crackles Heart regular rate and rhythm S1-S2, no rub or gallop Abdomen is soft with mild tenderness in the periumbilical area nondistended positive bowel sounds no hepatosplenomegaly Extremities no edema no cyanosis or clubbing Neuro alert and orientated to 3 positive tremor noted bilateral hands - Labs CBC & Chem 7: 05/25/18 07:30 05/25/18 07:30 Labs: Abnormal Lab Results - Last 24 Hours (Table) 05/24/18 05/24/18 05/24/18 Range/Units 16:38 19:10 20:16 RBC (4.30-5.90) m/uL Hgb (13.0-17.5) gm/dL Hct (39.0-53.0) % RDW (11.5-15.5) % Plt Count (150-450) k/uL Glucose (74-99) mg/dL POC Glucose (mg/dL) 117 H 113 H (75-99) mg/dL Magnesium (1.6-2.3) mg/dL Albumin (3.5-5.0) g/dL C. difficile (EIA) Intrp Positive A (Negative) 05/25/18 05/25/18 05/25/18 Range/Units 07:13 07:30 07:30 RBC 3.96 L (4.30-5.90) m/uL Hgb 12.4 L (13.0-17.5) gm/dL Hct 37.1 L (39.0-53.0) % RDW 16.2 H (11.5-15.5) % Plt Count 130 L (150-450) k/uL Glucose 104 H (74-99) mg/dL POC Glucose (mg/dL) 108 H (75-99) mg/dL Magnesium 1.4 L (1.6-2.3) mg/dL Albumin 3.1 L (3.5-5.0) g/dL C. difficile (EIA) Intrp (Negative) Assessment and Plan Plan: 1. Alcohol withdrawal and alcohol intoxication: Alcohol level 238 on admission. Start the CIWA protocol with IV Ativan. Continue multivitamin, thiamine and folate acid. Continue with IV fluid hydration. Consult social work 2. Hypernatremia: Sodium level 147. Likely related to patient's alcohol use. We'll switch IV fluids to 0.45 saline at 100 mL an hour. Repeat sodium level normal at 137 3. Possible urinary retention: Bladder scan patient. Check postvoid residual. Urinalysis negative. Continue with IV fluids. Patient reporting now urinating without difficulty. Still awaiting bladder scan results discussed with nursing staff. 4. Sinus tachycardia secondary to alcohol withdrawal. Patient did not take the nadolol this morning. Restart nadolol now 5. Chest discomfort likely secondary to patient's sinus tachycardia. Troponin negative. EKG confirming sinus tachycardia 6. Hypomagnesemia: Magnesium 1.3. Patient received magnesium supplement. Repeat magnesium level in a.m. 7. History of alcohol liver cirrhosis with portal hypertension 8. History of esophageal varices with an EGD and ligation on 10/21/2017 9. History of PE 10. History of diabetes mellitus type 2. Resume metformin and sliding scale coverage 11. History of paroxysmal atrial fibrillation not on anticoagulation due to history of bleeding from his esophageal varices 12. History of COPD: Stable 13. Diarrhea, stool positive for C. diff patient was started on oral vancomycin 250 mg by mouth every 6 hours, will monitor progress. GI prophylaxis Protonix and DVT prophylaxis Lovenox
[2018-05-25 11:37] LABS: Glucose,Whole Blood 101 mg/dL (75-99)
[2018-05-25 17:15] LABS: Glucose,Whole Blood 94 mg/dL (75-99)
[2018-05-25 20:39] LABS: Glucose,Whole Blood 100 mg/dL (75-99)
[2018-05-25] MEDS: MAGNESIUM OXIDE 400 MG TAB PO SCH (22:06)
[2018-05-26] MEDS: CHERRY FLAVOR 60 ML BOTTLE PO SCH ×5 (00:28→23:23)
[2018-05-26] MEDS: VANCOMYCIN ORAL SOLUTION 250 MG/5 ML BOTTLE PO SCH ×5 (00:28→23:23)
[2018-05-26] MEDS: SODIUM CHLORIDE 0.45% 1,000 ML IV SCH ×3 (01:51→23:25)
[2018-05-26] MEDS: ONDANSETRON 4 MG/2 ML VIAL IVP PRN (01:51)
[2018-05-26 07:17] LABS: Glucose,Whole Blood 122 mg/dL (75-99)
[2018-05-26] MEDS: INSULIN ASPART 100 UNIT/ML 1 ML 10 ML VIAL SQ SCH ×4 (07:38→21:54)
[2018-05-26] MEDS: PANTOPRAZOLE 40 MG TABLET PO SCH (08:22)
[2018-05-26] MEDS: metFORMIN 500 MG TAB PO SCH ×2 (08:22→17:28)
[2018-05-26 08:33] LABS: Anisocytosis Slight; Basophils % (A) 0 %; Eosinophils # (A) 0.1 k/uL (0-0.7); Eosinophils % (A) 2 %; HCT 40.3 % (39.0-53.0); HGB 12.9 gm/dL (13.0-17.5); Lymphocytes # (A) 1.3 k/uL (1.0-4.8); Lymphocytes % (A) 23 %; MCH 30.3 pg (25.0-35.0); MCV 94.7 fL (80.0-100.0); Mean Platelet Volume 7.3; Monocytes # (A) 0.3 k/uL (0-1.0); Monocytes % (A) 5 %; Neutrophils # (A) 3.9 k/uL (1.3-7.7); Neutrophils % (A) 68 %; Platelet Count 137 k/uL (150-450); RBC 4.26 m/uL (4.30-5.90); RDW 16.1 % (11.5-15.5); WBC 5.7 k/uL (3.8-10.6)
[2018-05-26 08:54] LABS: ALT 29 U/L (21-72); AST 40 U/L (17-59); Albumin 3.7 g/dL (3.5-5.0); Alkaline Phosphatase 122 U/L (38-126); Anion Gap 9 mmol/L; Blood Urea Nitrogen 13 mg/dL (9-20); Calcium 9.1 mg/dL (8.4-10.2); Carbon Dioxide 25 mmol/L (22-30); Chloride 104 mmol/L (98-107); Glucose 120 mg/dL (74-99); Magnesium 1.3 mg/dL (1.6-2.3); Potassium 3.9 mmol/L (3.5-5.1); Sodium 138 mmol/L (137-145); Total Bilirubin 0.8 mg/dL (0.2-1.3); Total Protein 7.4 g/dL (6.3-8.2)
[2018-05-26] MEDS: ENOXAPARIN 40 MG/0.4 ML SYRINGE SQ SCH (09:03)
[2018-05-26] MEDS: NADOLOL 20 MG TAB PO SCH (09:03)
[2018-05-26] MEDS: CHOLECALCIFEROL 1,000 UNIT TAB PO SCH (09:03)
[2018-05-26] MEDS: FOLIC ACID 1 MG TAB PO SCH (09:03)
[2018-05-26] MEDS: THIAMINE 100 MG TAB PO SCH (09:03)
[2018-05-26] MEDS: cloNIDine HCL 0.1 MG TAB PO SCH ×2 (09:03→20:30)
[2018-05-26] MEDS: MULTIVITAMINS, THERA 1 EACH TAB PO SCH (09:03)
[2018-05-26] MEDS: ASPIRIN 81 MG PO SCH (09:03)
[2018-05-26] MEDS: FERROUS SULFATE 325 MG TAB PO SCH (09:03)
--- NOTE | 2018-05-26 09:23 | P.PN ---
Subjective Progress Note Date: 05/26/18 This is a 63-year-old male, patient of [facility]. 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 Patient has had multiple hospitalizations due to alcohol withdrawal. Last hospitalization was just in April. Patient reports that he has been drinking more frequently due to the holidays and being around his sister and brother who drink alcohol around him. Patient towards that he drank a fifth of whiskey last night. He presents to the emergency department with complaints of heart palpitation and shaking. He feels he is going through alcohol withdrawal. Patient was given IV fluids IV Ativan thiamine and will also be started on full casted and multivitamin. Patient's had reported some chest discomfort with a heart palpitations. EKG had shown sinus tachycardia with a heart rate of 126 troponin was negative chest x-ray negative. Patient admitted to the hospital with acute alcohol withdrawal. EtOH level elevated at 238. Patient does have a sodium level 147 and chloride 109. Magnesium low at 1.5. Patient receiving supplement. AST elevated at 62. Patient also has been having dry heaves no actual vomiting. Does report some abdominal discomfort. Also reported that he is not urinating as frequently as he usually does. Bladder scan will be checked for possible urinary retention. Urinalysis also has been ordered. 05/24/2018 patient's heart rate has improved. Sodium level also improved down to 137. Urinalysis is negative for infection. Drug screen positive for benzodiazepine. Patient is complaining of diarrhea about 4-5 stools during the day. Stool for C. diff has been ordered. Magnesium being replaced. Patient denies any chest pain, shortness breath, vomiting or urinary symptoms. He still has having some dry heaves. Still requiring IV Ativan for withdrawal symptoms On 05/25/2018 patient was seen and examined on the medical floor he is alert and oriented 3 in no apparent distress he is complaining of diarrhea and lower abdominal pain and discomfort otherwise he denies any complaints there is no fever or chills no headache no dizziness no chest pain no shortness of breath no cough no nausea or vomiting and no urinary symptoms. Clostridium difficile results came back positive last night patient was started on oral vancomycin. Today he had 4 bouts of diarrhea this morning. On 05/26/2018 patient was seen and examined he is alert and oriented 3 he is still complaining of abdominal pain and diarrhea he states he had 7-8 bowel movements this morning he states he was up all night with abdominal pain otherwise he denies any complaints there is no fever or chills no headache or dizziness no chest pain no shortness of breath no cough no nausea or vomiting and no urinary symptoms Objective - Vital Signs Vital signs: Vital Signs Temp 98.4 F 05/26/18 06:53 Pulse 80 05/26/18 06:53 Resp 12 05/26/18 06:53 BP 132/80 05/26/18 06:53 Pulse Ox 95 05/26/18 06:53 Intake & Output 05/25/18 05/26/18 05/26/18 18:59 06:59 18:59 Intake Total 940 250 Balance 940 250 Intake: Intake, IV Titration 700 Amount Sodium Chloride 0.45% 1, 700 000 ml @ 100 mls/hr IV . Q10H TANYA Rx#:[id number] Oral 240 250 Other: # Voids 1 # Bowel Movements 2 - Exam Head normocephalic and atraumatic Neck supple no JVD no goiter Lungs clear to auscultation bilaterally no wheezing or crackles Heart regular rate and rhythm S1-S2, no rub or gallop Abdomen is soft with mild tenderness in the periumbilical area nondistended positive bowel sounds no hepatosplenomegaly Extremities no edema no cyanosis or clubbing Neuro alert and orientated to 3 positive tremor noted bilateral hands - Labs CBC & Chem 7: 05/26/18 07:56 05/26/18 07:56 Labs: Abnormal Lab Results - Last 24 Hours (Table) 05/25/18 05/25/18 05/26/18 Range/Units 11:20 20:28 06:57 RBC (4.30-5.90) m/uL Hgb (13.0-17.5) gm/dL RDW (11.5-15.5) % Plt Count (150-450) k/uL Glucose (74-99) mg/dL POC Glucose (mg/dL) 101 H 100 H 122 H (75-99) mg/dL Magnesium (1.6-2.3) mg/dL 05/26/18 05/26/18 Range/Units 07:56 07:56 RBC 4.26 L (4.30-5.90) m/uL Hgb 12.9 L (13.0-17.5) gm/dL RDW 16.1 H (11.5-15.5) % Plt Count 137 L (150-450) k/uL Glucose 120 H (74-99) mg/dL POC Glucose (mg/dL) (75-99) mg/dL Magnesium 1.3 L (1.6-2.3) mg/dL Assessment and Plan Plan: 1. Alcohol withdrawal and alcohol intoxication: Alcohol level 238 on admission. Start the CIWA protocol with IV Ativan. Continue multivitamin, thiamine and folate acid. Continue with IV fluid hydration. Consult social work 2. Hypernatremia: Sodium level 147. Likely related to patient's alcohol use. We'll switch IV fluids to 0.45 saline at 100 mL an hour. Repeat sodium level normal at 137 3. Possible urinary retention: Bladder scan patient. Check postvoid residual. Urinalysis negative. Continue with IV fluids. Patient reporting now urinating without difficulty. Still awaiting bladder scan results discussed with nursing staff. 4. Sinus tachycardia secondary to alcohol withdrawal. Patient did not take the nadolol this morning. Restart nadolol now 5. Chest discomfort likely secondary to patient's sinus tachycardia. Troponin negative. EKG confirming sinus tachycardia 6. Hypomagnesemia: Magnesium 1.3. Patient received magnesium supplement. Repeat magnesium level in a.m. 7. History of alcohol liver cirrhosis with portal hypertension 8. History of esophageal varices with an EGD and ligation on 10/21/2017 9. History of PE 10. History of diabetes mellitus type 2. Resume metformin and sliding scale coverage 11. History of paroxysmal atrial fibrillation not on anticoagulation due to history of bleeding from his esophageal varices 12. History of COPD: Stable 13. Diarrhea, stool positive for C. diff patient was started on oral vancomycin 250 mg by mouth every 6 hours, patient stated that his symptoms are worsening at this time will consult infectious disease Dr. Hankins GI prophylaxis Protonix and DVT prophylaxis Lovenox
[2018-05-26 12:02] LABS: Glucose,Whole Blood 105 mg/dL (75-99)
[2018-05-26 17:07] LABS: Glucose,Whole Blood 98 mg/dL (75-99)
[2018-05-26 18:51] LABS: Hemoglobin A1C 5.6 % (4.0-6.0)
[2018-05-26] MEDS: MAGNESIUM OXIDE 400 MG TAB PO SCH (20:30)
[2018-05-26 20:35] LABS: Glucose,Whole Blood 94 mg/dL (75-99)
--- NOTE | 2018-05-27 00:07 | CONS ---
CONSULTATION DATE OF SERVICE: 05/26/2018 REASON FOR CONSULTATION: C difficile colitis. HISTORY OF PRESENT ILLNESS: The patient is a 63-year-old male with a past medical history significant for liver cirrhosis, hypertension, GI bleed. He presented to the hospital with palpitation and acute alcohol withdrawal. The patient has also been complaining of diarrhea that had been going on for about a week before he was sent to hospital. He did have multiple loose stools with no blood or mucus in it. He did have mild lower abdominal pain, mostly crampy, intensity 4 to 5 out of 10, and no radiation. He has been nauseated but no vomiting. With these symptoms, the patient was evaluated initially and admitted for alcohol withdrawal. On admission the patient was afebrile and remains afebrile. The patient's white count was not significantly elevated. Stool for C difficile was sent which came back positive. The patient has been started on vancomycin. Infectious Disease was consulted for further recommendations regarding antibiotic therapy. REVIEW OF SYSTEMS: Positive points have been mentioned in the HPI. Rest of the systems has been negative. PAST MEDICAL HISTORY: Significant for: 1. Atrial fibrillation. 2. Angina. 3. COPD. 4. CVA, TIA. 5. Diabetes mellitus. 6. Gastroesophageal reflux disease. 7. GI bleed. 8. Hypertension. 9. Hyperlipidemia. 10.Pneumonia. 11.Pulmonary embolism. 12.Prostate disorder: PAST SURGICAL HISTORY: 1. Appendectomy. 2. Cholecystectomy. 3. EGD. 4. Esophageal varices banding. 5. Colonoscopy. SOCIAL HISTORY: No history of smoking. Does admit to drinking. No drug use. FAMILY HISTORY: Mother with history of COPD, CVA, TIA. Father had a stroke. Father had history of pneumonia. ALLERGIES: 1. ADHESIVE. 2. EGGS. 3. LISINOPRIL. 4. TOMATO. CURRENT MEDICATIONS: The patient is currently on: 1. Aspirin. 2. Vitamin D3. 3. Catapres. 4. Lovenox. 5. Iron sulfate. 6. Folic acid. 7. NovoLog. 8. Ativan. 9. Mag oxide. 10.Glucophage. 11.Theragran. 12.Cozaar. 13.Narcan. 14.Zofran. 15.Protonix. 16.Vancomycin 250 q.6 hours. PHYSICAL EXAMINATION: Blood pressure is 154/91 with a pulse of 74, temperature of 98.1. He is 96% on room air. General description is a middle-aged male lying in bed in no distress. HEENT EXAMINATION: No pallor or scleral icterus. Oral mucosa membrane is dry. No pharyngeal erythema or thrush. NECK: Trachea is central. No thyromegaly. LUNGS: Unlabored breathing. Clear to auscultation anteriorly. HEART: S1, S2. Regular rate and rhythm. ABDOMEN: Soft. Minimal tenderness in the lower quadrant areas. No guarding. No rigidity. No organomegaly. EXTREMITIES: No edema of feet. SKIN EXAMINATION: No rash or mass palpable. Neurologically the patient is awake, alert, oriented x3. Mood and affect normal. LABS: Hemoglobin is 12.9, white count 5.7, BUN of 13, creatinine 0.78. Electrolytes have been normal. Liver enzymes are normal. Urine has been negative. Urine drug screen was positive for benzodiazepines. Serum alcohol was 238. Stool for C difficile is positive. DIAGNOSTIC IMPRESSION AND PLAN: Patient with acute Clostridium difficile colitis in this patient who did have multiple loose stools was admitted to hospital with alcohol intoxication. However, he has been exposed to the antibiotics a few weeks ago for infection, likely representing asymptomatic C difficile colitis. PLAN: 1. Vancomycin 250 p.o. q.6 hours. 2. Questran to be added if the patient has persistent loose stools. 3. Discontinue the Protonix to decrease the risk of recurrence. May add Pepcid if needed for GI or gastric protection. 4. Will follow up on clinical condition to further adjust medication if needed. Thank you for this consultation. Will follow this patient along with you. MMODL / IJN: [id number] /
[2018-05-27] MEDS: CHERRY FLAVOR 60 ML BOTTLE PO SCH ×3 (05:26→17:25)
[2018-05-27] MEDS: VANCOMYCIN ORAL SOLUTION 250 MG/5 ML BOTTLE PO SCH ×3 (05:26→17:25)
[2018-05-27] MEDS: FOLIC ACID 1 MG TAB PO SCH (07:25)
[2018-05-27] MEDS: SODIUM CHLORIDE 0.45% 1,000 ML IV SCH ×2 (07:25→17:27)
[2018-05-27] MEDS: FERROUS SULFATE 325 MG TAB PO SCH (07:25)
[2018-05-27] MEDS: ENOXAPARIN 40 MG/0.4 ML SYRINGE SQ SCH (07:25)
[2018-05-27] MEDS: CHOLECALCIFEROL 1,000 UNIT TAB PO SCH (07:25)
[2018-05-27] MEDS: cloNIDine HCL 0.1 MG TAB PO SCH ×2 (07:26→21:26)
[2018-05-27] MEDS: CHOLESTYRAMINE (WITH SUGAR) 4 GM PACKET PO SCH ×2 (07:26→21:25)
[2018-05-27] MEDS: FAMOTIDINE 20 MG TAB PO SCH ×2 (07:26→21:26)
[2018-05-27] MEDS: THIAMINE 100 MG TAB PO SCH (07:26)
[2018-05-27] MEDS: NADOLOL 20 MG TAB PO SCH (07:26)
[2018-05-27] MEDS: metFORMIN 500 MG TAB PO SCH ×2 (07:26→17:24)
[2018-05-27] MEDS: ASPIRIN 81 MG PO SCH (07:26)
[2018-05-27] MEDS: MULTIVITAMINS, THERA 1 EACH TAB PO SCH (07:26)
[2018-05-27] MEDS: INSULIN ASPART 100 UNIT/ML 1 ML 10 ML VIAL SQ SCH ×4 (07:27→21:20)
[2018-05-27 07:32] LABS: Glucose,Whole Blood 98 mg/dL (75-99)
[2018-05-27 08:37] LABS: Anisocytosis Slight; Basophils % (A) 0 %; Eosinophils # (A) 0.1 k/uL (0-0.7); Eosinophils % (A) 3 %; HCT 38.9 % (39.0-53.0); HGB 12.8 gm/dL (13.0-17.5); Lymphocytes # (A) 1.4 k/uL (1.0-4.8); Lymphocytes % (A) 28 %; MCH 31.1 pg (25.0-35.0); MCHC 32.9 g/dL (31.0-37.0); MCV 94.4 fL (80.0-100.0); Mean Platelet Volume 7.3; Monocytes # (A) 0.3 k/uL (0-1.0); Monocytes % (A) 6 %; Neutrophils # (A) 3.2 k/uL (1.3-7.7); Neutrophils % (A) 61 %; Platelet Count 132 k/uL (150-450); RBC 4.12 m/uL (4.30-5.90); RDW 16.2 % (11.5-15.5); WBC 5.2 k/uL (3.8-10.6)
[2018-05-27 08:53] LABS: ALT 35 U/L (21-72); AST 50 U/L (17-59); Albumin 3.6 g/dL (3.5-5.0); Alkaline Phosphatase 121 U/L (38-126); Anion Gap 8 mmol/L; Blood Urea Nitrogen 14 mg/dL (9-20); Calcium 9.2 mg/dL (8.4-10.2); Carbon Dioxide 26 mmol/L (22-30); Chloride 104 mmol/L (98-107); Glucose 95 mg/dL (74-99); Magnesium 1.4 mg/dL (1.6-2.3); Sodium 138 mmol/L (137-145); Total Bilirubin 0.5 mg/dL (0.2-1.3); Total Protein 7.3 g/dL (6.3-8.2)
--- NOTE | 2018-05-27 10:53 | P.PN ---
Subjective Progress Note Date: 05/27/18 This is a 63-year-old male, patient of [facility]. 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 Patient has had multiple hospitalizations due to alcohol withdrawal. Last hospitalization was just in April. Patient reports that he has been drinking more frequently due to the holidays and being around his sister and brother who drink alcohol around him. Patient towards that he drank a fifth of whiskey last night. He presents to the emergency department with complaints of heart palpitation and shaking. He feels he is going through alcohol withdrawal. Patient was given IV fluids IV Ativan thiamine and will also be started on full casted and multivitamin. Patient's had reported some chest discomfort with a heart palpitations. EKG had shown sinus tachycardia with a heart rate of 126 troponin was negative chest x-ray negative. Patient admitted to the hospital with acute alcohol withdrawal. EtOH level elevated at 238. Patient does have a sodium level 147 and chloride 109. Magnesium low at 1.5. Patient receiving supplement. AST elevated at 62. Patient also has been having dry heaves no actual vomiting. Does report some abdominal discomfort. Also reported that he is not urinating as frequently as he usually does. Bladder scan will be checked for possible urinary retention. Urinalysis also has been ordered. 05/24/2018 patient's heart rate has improved. Sodium level also improved down to 137. Urinalysis is negative for infection. Drug screen positive for benzodiazepine. Patient is complaining of diarrhea about 4-5 stools during the day. Stool for C. diff has been ordered. Magnesium being replaced. Patient denies any chest pain, shortness breath, vomiting or urinary symptoms. He still has having some dry heaves. Still requiring IV Ativan for withdrawal symptoms On 05/25/2018 patient was seen and examined on the medical floor he is alert and oriented 3 in no apparent distress he is complaining of diarrhea and lower abdominal pain and discomfort otherwise he denies any complaints there is no fever or chills no headache no dizziness no chest pain no shortness of breath no cough no nausea or vomiting and no urinary symptoms. Clostridium difficile results came back positive last night patient was started on oral vancomycin. Today he had 4 bouts of diarrhea this morning. On 05/26/2018 patient was seen and examined he is alert and oriented 3 he is still complaining of abdominal pain and diarrhea he states he had 7-8 bowel movements this morning he states he was up all night with abdominal pain otherwise he denies any complaints there is no fever or chills no headache or dizziness no chest pain no shortness of breath no cough no nausea or vomiting and no urinary symptoms. 05/27/2018 patient was seen and examined on the medical floor he is still complaining of diarrhea he states he had 4 liquid to soft bowel movement this morning, he is also complaining of abdominal discomfort, he is maintained on oral vancomycin he was seen by infectious disease Dr. Hankins and Questran was added to his regimen. Otherwise patient is stable he denies any other complaints there is no fever or chills no headache or dizziness no chest pain no shortness of breath no cough no nausea or vomiting, and no urinary symptoms Objective - Vital Signs Vital signs: Vital Signs Temp 98.6 F 05/27/18 07:20 Pulse 86 05/27/18 07:20 Resp 12 05/27/18 07:20 BP 127/77 05/27/18 07:20 Pulse Ox 97 05/27/18 07:20 Intake & Output 05/26/18 05/27/18 05/27/18 18:59 06:59 18:59 Intake Total 1500 1368 Balance 1500 1368 Weight 73.482 kg Intake: Intake, IV Titration 700 1250 Amount Sodium Chloride 0.45% 1, 700 1250 000 ml @ 100 mls/hr IV . Q10H TANYA Rx#:[id number] Oral 800 118 Other: Voiding Method Toilet Toilet # Voids 1 2 # Bowel Movements 2 - Exam Head normocephalic and atraumatic Neck supple no JVD no goiter Lungs clear to auscultation bilaterally no wheezing or crackles Heart regular rate and rhythm S1-S2, no rub or gallop Abdomen is soft with mild tenderness in the periumbilical area nondistended positive bowel sounds no hepatosplenomegaly Extremities no edema no cyanosis or clubbing Neuro alert and orientated to 3 positive tremor noted bilateral hands - Labs CBC & Chem 7: 05/27/18 07:42 05/27/18 07:42 Labs: Abnormal Lab Results - Last 24 Hours (Table) 05/26/18 05/27/18 05/27/18 Range/Units 11:49 07:42 07:42 RBC 4.12 L (4.30-5.90) m/uL Hgb 12.8 L (13.0-17.5) gm/dL Hct 38.9 L (39.0-53.0) % RDW 16.2 H (11.5-15.5) % Plt Count 132 L (150-450) k/uL POC Glucose (mg/dL) 105 H (75-99) mg/dL Magnesium 1.4 L (1.6-2.3) mg/dL Assessment and Plan Plan: 1. Alcohol withdrawal and alcohol intoxication: Alcohol level 238 on admission. Start the CIWA protocol with IV Ativan. Continue multivitamin, thiamine and folate acid. Continue with IV fluid hydration. Consult social work 2. Hypernatremia: Sodium level 147. Likely related to patient's alcohol use. We'll switch IV fluids to 0.45 saline at 100 mL an hour. Repeat sodium level normal at 138 3. Possible urinary retention: Bladder scan patient. Check postvoid residual. Urinalysis negative. Continue with IV fluids. Patient reporting now urinating without difficulty. Still awaiting bladder scan results discussed with nursing staff. 4. Sinus tachycardia secondary to alcohol withdrawal. Patient did not take the nadolol this morning. Restart nadolol now 5. Chest discomfort likely secondary to patient's sinus tachycardia. Troponin negative. EKG confirming sinus tachycardia 6. Hypomagnesemia: Magnesium 1.3. Patient received magnesium supplement. Repeat magnesium level in a.m. 7. History of alcohol liver cirrhosis with portal hypertension 8. History of esophageal varices with an EGD and ligation on 10/21/2017 9. History of PE 10. History of diabetes mellitus type 2. Resume metformin and sliding scale coverage 11. History of paroxysmal atrial fibrillation not on anticoagulation due to history of bleeding from his esophageal varices 12. History of COPD: Stable 13. Diarrhea, stool positive for C. diff patient was started on oral vancomycin 250 mg by mouth every 6 hours, patient stated that his symptoms are worsening at this time will consult infectious disease Dr. Hankins GI prophylaxis Protonix and DVT prophylaxis Lovenox
[2018-05-27 12:04] LABS: Glucose,Whole Blood 100 mg/dL (75-99)
--- NOTE | 2018-05-27 15:59 | PN ---
PROGRESS NOTE DATE OF SERVICE: 05/27/2018. REASON FOR FOLLOWUP: C difficile colitis. INTERVAL HISTORY: The patient is currently afebrile. He has been breathing comfortably. Denies having any chest pain. No shortness of breath or cough. Still has lower abdominal pain and did have 5 loose stools today, but no blood or mucus in it. PHYSICAL EXAMINATION: Blood pressure is 127/77 with a pulse of 86, temperature 98.6. He is 97% on room air. General description is a middle-aged male lying in bed in no distress. RESPIRATORY SYSTEM: Unlabored breathing. Clear to auscultation anteriorly. HEART: S1, S2. Regular rate and rhythm. ABDOMEN: Soft. Minimal tenderness. No guarding or rigidity. LABS: Hemoglobin is 12.8, white count 5.2 with a BUN of 14, creatinine 0.78. DIAGNOSTIC IMPRESSION AND PLAN: Patient with Clostridium difficile colitis. Patient at this time will continue with p.o. vancomycin 250 q.6 along with Questran. He has been encouraged to increase his yogurt intake and continue with supportive care. MMODL / IJN: [id number] /
[2018-05-27 17:23] LABS: Glucose,Whole Blood 90 mg/dL (75-99)
[2018-05-27 20:34] LABS: Glucose,Whole Blood 94 mg/dL (75-99)
[2018-05-27] MEDS: MAGNESIUM OXIDE 400 MG TAB PO SCH (21:26)
[2018-05-28] MEDS: CHERRY FLAVOR 60 ML BOTTLE PO SCH ×5 (00:10→23:54)
[2018-05-28] MEDS: VANCOMYCIN ORAL SOLUTION 250 MG/5 ML BOTTLE PO SCH ×5 (00:11→23:54)
[2018-05-28] MEDS: SODIUM CHLORIDE 0.45% 1,000 ML IV SCH ×3 (05:48→21:51)
[2018-05-28 07:14] LABS: Glucose,Whole Blood 89 mg/dL (75-99)
[2018-05-28] MEDS: INSULIN ASPART 100 UNIT/ML 1 ML 10 ML VIAL SQ SCH ×4 (07:59→21:46)
[2018-05-28] MEDS: FAMOTIDINE 20 MG TAB PO SCH ×2 (08:18→21:50)
[2018-05-28] MEDS: metFORMIN 500 MG TAB PO SCH ×2 (08:18→18:01)
[2018-05-28] MEDS: CHOLECALCIFEROL 1,000 UNIT TAB PO SCH (08:18)
[2018-05-28] MEDS: cloNIDine HCL 0.1 MG TAB PO SCH ×2 (08:19→21:51)
[2018-05-28] MEDS: THIAMINE 100 MG TAB PO SCH (08:19)
[2018-05-28] MEDS: FERROUS SULFATE 325 MG TAB PO SCH (08:19)
[2018-05-28] MEDS: FOLIC ACID 1 MG TAB PO SCH (08:19)
[2018-05-28] MEDS: ENOXAPARIN 40 MG/0.4 ML SYRINGE SQ SCH (08:19)
[2018-05-28] MEDS: ASPIRIN 81 MG PO SCH (08:20)
[2018-05-28] MEDS: NADOLOL 20 MG TAB PO SCH (08:21)
[2018-05-28] MEDS: CHOLESTYRAMINE (WITH SUGAR) 4 GM PACKET PO SCH ×2 (12:14→21:51)
[2018-05-28] MEDS: MULTIVITAMINS, THERA 1 EACH TAB PO SCH (12:14)
[2018-05-28 12:18] LABS: Glucose,Whole Blood 111 mg/dL (75-99)
--- NOTE | 2018-05-28 12:37 | P.PN ---
Subjective Progress Note Date: 05/28/18 This is a 63-year-old male, patient of [facility]. 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 Patient has had multiple hospitalizations due to alcohol withdrawal. Last hospitalization was just in April. Patient reports that he has been drinking more frequently due to the holidays and being around his sister and brother who drink alcohol around him. Patient towards that he drank a fifth of whiskey last night. He presents to the emergency department with complaints of heart palpitation and shaking. He feels he is going through alcohol withdrawal. Patient was given IV fluids IV Ativan thiamine and will also be started on full casted and multivitamin. Patient's had reported some chest discomfort with a heart palpitations. EKG had shown sinus tachycardia with a heart rate of 126 troponin was negative chest x-ray negative. Patient admitted to the hospital with acute alcohol withdrawal. EtOH level elevated at 238. Patient does have a sodium level 147 and chloride 109. Magnesium low at 1.5. Patient receiving supplement. AST elevated at 62. Patient also has been having dry heaves no actual vomiting. Does report some abdominal discomfort. Also reported that he is not urinating as frequently as he usually does. Bladder scan will be checked for possible urinary retention. Urinalysis also has been ordered. 05/24/2018 patient's heart rate has improved. Sodium level also improved down to 137. Urinalysis is negative for infection. Drug screen positive for benzodiazepine. Patient is complaining of diarrhea about 4-5 stools during the day. Stool for C. diff has been ordered. Magnesium being replaced. Patient denies any chest pain, shortness breath, vomiting or urinary symptoms. He still has having some dry heaves. Still requiring IV Ativan for withdrawal symptoms On 05/25/2018 patient was seen and examined on the medical floor he is alert and oriented 3 in no apparent distress he is complaining of diarrhea and lower abdominal pain and discomfort otherwise he denies any complaints there is no fever or chills no headache no dizziness no chest pain no shortness of breath no cough no nausea or vomiting and no urinary symptoms. Clostridium difficile results came back positive last night patient was started on oral vancomycin. Today he had 4 bouts of diarrhea this morning. On 05/26/2018 patient was seen and examined he is alert and oriented 3 he is still complaining of abdominal pain and diarrhea he states he had 7-8 bowel movements this morning he states he was up all night with abdominal pain otherwise he denies any complaints there is no fever or chills no headache or dizziness no chest pain no shortness of breath no cough no nausea or vomiting and no urinary symptoms. 05/27/2018 patient was seen and examined on the medical floor he is still complaining of diarrhea he states he had 4 liquid to soft bowel movement this morning, he is also complaining of abdominal discomfort, he is maintained on oral vancomycin he was seen by infectious disease Dr. Hankins and Questran was added to his regimen. Otherwise patient is stable he denies any other complaints there is no fever or chills no headache or dizziness no chest pain no shortness of breath no cough no nausea or vomiting, and no urinary symptoms On 05/28/2018 patient was seen and examined on the medical floor he is alert and oriented 3 in no apparent distress he is still complaining of diarrhea and complaining of abdominal discomfort otherwise he denies any complaints at this time he states he had 4 bowel movements this morning otherwise there is no fever or chills no headache or dizziness no chest pain no shortness of breath no cough no nausea or vomiting and no urinary symptoms Objective - Vital Signs Vital signs: Vital Signs Temp 98.2 F 05/28/18 07:00 Pulse 70 05/28/18 07:00 Resp 16 05/28/18 07:00 BP 181/109 05/28/18 07:00 Pulse Ox 98 05/28/18 07:00 Intake & Output 05/27/18 05/28/18 05/28/18 18:59 06:59 18:59 Intake Total 1150 1200 Balance 1150 1200 Weight 73.482 kg Intake: Intake, IV Titration 700 1200 Amount Sodium Chloride 0.45% 1, 700 1200 000 ml @ 100 mls/hr IV . Q10H [facility] Rx#:[id number] Oral 450 Other: Voiding Method Toilet Toilet # Voids 2 1 - Exam Head normocephalic and atraumatic Neck supple no JVD no goiter Lungs clear to auscultation bilaterally no wheezing or crackles Heart regular rate and rhythm S1-S2, no rub or gallop Abdomen is soft with mild tenderness in the periumbilical area nondistended positive bowel sounds no hepatosplenomegaly Extremities no edema no cyanosis or clubbing Neuro alert and orientated to 3 positive tremor noted bilateral hands - Labs CBC & Chem 7: 05/27/18 07:42 05/27/18 07:42 Labs: Abnormal Lab Results - Last 24 Hours (Table) 05/28/18 Range/Units 12:07 POC Glucose (mg/dL) 111 H (75-99) mg/dL Assessment and Plan Plan: 1. Alcohol withdrawal and alcohol intoxication: Alcohol level 238 on admission. Start the CIWA protocol with IV Ativan. Continue multivitamin, thiamine and folate acid. Continue with IV fluid hydration. Consult social work 2. Hypernatremia: Sodium level 147. Likely related to patient's alcohol use. We'll switch IV fluids to 0.45 saline at 100 mL an hour. Repeat sodium level normal at 138 3. Possible urinary retention: Bladder scan patient. Check postvoid residual. Urinalysis negative. Continue with IV fluids. Patient reporting now urinating without difficulty. Still awaiting bladder scan results discussed with nursing staff. 4. Sinus tachycardia secondary to alcohol withdrawal. Patient did not take the nadolol this morning. Restart nadolol now 5. Chest discomfort likely secondary to patient's sinus tachycardia. Troponin negative. EKG confirming sinus tachycardia 6. Hypomagnesemia: Magnesium 1.3. Patient received magnesium supplement. Repeat magnesium level in a.m. 7. History of alcohol liver cirrhosis with portal hypertension 8. History of esophageal varices with an EGD and ligation on 10/21/2017 9. History of PE 10. History of diabetes mellitus type 2. Resume metformin and sliding scale coverage 11. History of paroxysmal atrial fibrillation not on anticoagulation due to history of bleeding from his esophageal varices 12. History of COPD: Stable 13. Diarrhea, stool positive for C. diff patient was started on oral vancomycin 250 mg by mouth every 6 hours, patient stated that his symptoms are worsening at this time will consult infectious disease Dr. Hankins GI prophylaxis Protonix and DVT prophylaxis Lovenox
[2018-05-28] MEDS: amLODIPine 5 MG TAB PO SCH (16:35)
[2018-05-28 17:02] LABS: Glucose,Whole Blood 88 mg/dL (75-99)
[2018-05-28 20:12] LABS: Glucose,Whole Blood 102 mg/dL (75-99)
[2018-05-28] MEDS: MAGNESIUM OXIDE 400 MG TAB PO SCH (21:50)
[2018-05-29] MEDS: CHERRY FLAVOR 60 ML BOTTLE PO SCH ×3 (05:47→17:45)
[2018-05-29] MEDS: VANCOMYCIN ORAL SOLUTION 250 MG/5 ML BOTTLE PO SCH ×3 (05:47→17:45)
[2018-05-29 07:23] LABS: Glucose,Whole Blood 96 mg/dL (75-99)
[2018-05-29 07:45] LABS: Anisocytosis Slight; Basophils % (A) 0 %; Eosinophils # (A) 0.2 k/uL (0-0.7); Eosinophils % (A) 3 %; HCT 38.6 % (39.0-53.0); HGB 12.3 gm/dL (13.0-17.5); Lymphocytes # (A) 1.6 k/uL (1.0-4.8); Lymphocytes % (A) 32 %; MCH 30.2 pg (25.0-35.0); MCHC 31.8 g/dL (31.0-37.0); Mean Platelet Volume 7.2; Monocytes # (A) 0.4 k/uL (0-1.0); Monocytes % (A) 7 %; Neutrophils # (A) 2.8 k/uL (1.3-7.7); Neutrophils % (A) 55 %; Platelet Count 137 k/uL (150-450); RBC 4.06 m/uL (4.30-5.90); RDW 16.7 % (11.5-15.5); WBC 5.1 k/uL (3.8-10.6)
[2018-05-29 08:07] LABS: ALT 43 U/L (21-72); AST 59 U/L (17-59); Albumin 3.5 g/dL (3.5-5.0); Alkaline Phosphatase 117 U/L (38-126); Anion Gap 8 mmol/L; Blood Urea Nitrogen 11 mg/dL (9-20); Calcium 9.2 mg/dL (8.4-10.2); Carbon Dioxide 25 mmol/L (22-30); Chloride 105 mmol/L (98-107); Glucose 96 mg/dL (74-99); Potassium 3.9 mmol/L (3.5-5.1); Sodium 138 mmol/L (137-145); Total Bilirubin 0.6 mg/dL (0.2-1.3); Total Protein 7.2 g/dL (6.3-8.2)
[2018-05-29] MEDS: INSULIN ASPART 100 UNIT/ML 1 ML 10 ML VIAL SQ SCH ×4 (08:12→20:51)
[2018-05-29] MEDS: metFORMIN 500 MG TAB PO SCH ×2 (08:18→17:45)
[2018-05-29] MEDS: amLODIPine 5 MG TAB PO SCH (08:18)
[2018-05-29] MEDS: ASPIRIN 81 MG PO SCH (08:18)
[2018-05-29] MEDS: cloNIDine HCL 0.1 MG TAB PO SCH ×2 (08:18→20:56)
[2018-05-29] MEDS: CHOLECALCIFEROL 1,000 UNIT TAB PO SCH (08:18)
[2018-05-29] MEDS: FERROUS SULFATE 325 MG TAB PO SCH (08:18)
[2018-05-29] MEDS: FAMOTIDINE 20 MG TAB PO SCH ×2 (08:19→20:56)
[2018-05-29] MEDS: THIAMINE 100 MG TAB PO SCH (08:19)
[2018-05-29] MEDS: FOLIC ACID 1 MG TAB PO SCH (08:19)
[2018-05-29] MEDS: MULTIVITAMINS, THERA 1 EACH TAB PO SCH (08:19)
[2018-05-29] MEDS: ENOXAPARIN 40 MG/0.4 ML SYRINGE SQ SCH (08:19)
[2018-05-29] MEDS: NADOLOL 20 MG TAB PO SCH (08:22)
[2018-05-29] MEDS: CHOLESTYRAMINE (WITH SUGAR) 4 GM PACKET PO SCH ×2 (09:47→20:56)
--- NOTE | 2018-05-29 10:40 | P.PN ---
Subjective Progress Note Date: 05/29/18 This is a 63-year-old male, patient of [facility]. 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 Patient has had multiple hospitalizations due to alcohol withdrawal. Last hospitalization was just in April. Patient reports that he has been drinking more frequently due to the holidays and being around his sister and brother who drink alcohol around him. Patient towards that he drank a fifth of whiskey last night. He presents to the emergency department with complaints of heart palpitation and shaking. He feels he is going through alcohol withdrawal. Patient was given IV fluids IV Ativan thiamine and will also be started on full casted and multivitamin. Patient's had reported some chest discomfort with a heart palpitations. EKG had shown sinus tachycardia with a heart rate of 126 troponin was negative chest x-ray negative. Patient admitted to the hospital with acute alcohol withdrawal. EtOH level elevated at 238. Patient does have a sodium level 147 and chloride 109. Magnesium low at 1.5. Patient receiving supplement. AST elevated at 62. Patient also has been having dry heaves no actual vomiting. Does report some abdominal discomfort. Also reported that he is not urinating as frequently as he usually does. Bladder scan will be checked for possible urinary retention. Urinalysis also has been ordered. 05/24/2018 patient's heart rate has improved. Sodium level also improved down to 137. Urinalysis is negative for infection. Drug screen positive for benzodiazepine. Patient is complaining of diarrhea about 4-5 stools during the day. Stool for C. diff has been ordered. Magnesium being replaced. Patient denies any chest pain, shortness breath, vomiting or urinary symptoms. He still has having some dry heaves. Still requiring IV Ativan for withdrawal symptoms On 05/25/2018 patient was seen and examined on the medical floor he is alert and oriented 3 in no apparent distress he is complaining of diarrhea and lower abdominal pain and discomfort otherwise he denies any complaints there is no fever or chills no headache no dizziness no chest pain no shortness of breath no cough no nausea or vomiting and no urinary symptoms. Clostridium difficile results came back positive last night patient was started on oral vancomycin. Today he had 4 bouts of diarrhea this morning. On 05/26/2018 patient was seen and examined he is alert and oriented 3 he is still complaining of abdominal pain and diarrhea he states he had 7-8 bowel movements this morning he states he was up all night with abdominal pain otherwise he denies any complaints there is no fever or chills no headache or dizziness no chest pain no shortness of breath no cough no nausea or vomiting and no urinary symptoms. 05/27/2018 patient was seen and examined on the medical floor he is still complaining of diarrhea he states he had 4 liquid to soft bowel movement this morning, he is also complaining of abdominal discomfort, he is maintained on oral vancomycin he was seen by infectious disease Dr. Hankins and Questran was added to his regimen. Otherwise patient is stable he denies any other complaints there is no fever or chills no headache or dizziness no chest pain no shortness of breath no cough no nausea or vomiting, and no urinary symptoms On 05/28/2018 patient was seen and examined on the medical floor he is alert and oriented 3 in no apparent distress he is still complaining of diarrhea and complaining of abdominal discomfort otherwise he denies any complaints at this time he states he had 4 bowel movements this morning otherwise there is no fever or chills no headache or dizziness no chest pain no shortness of breath no cough no nausea or vomiting and no urinary symptoms On 05/29/2018 patient was seen and examined on the medical floor he is alert and oriented he is complaining of loose stools and mild abdominal discomfort otherwise he denies any complaints there is no fever or chills no headache or dizziness no shortness of breath no chest pain no cough no nausea or vomiting and no urinary symptoms. Objective - Vital Signs Vital signs: Vital Signs Temp 97.8 F 05/29/18 06:57 Pulse 78 05/29/18 06:57 Resp 16 05/29/18 07:03 BP 132/78 05/29/18 06:57 Pulse Ox 97 05/29/18 06:57 Intake & Output 05/28/18 05/29/18 05/29/18 18:59 06:59 18:59 Intake Total 800 1000 Balance 800 1000 Intake: IV 800 Sodium Chloride 0.45% 1, 800 000 ml @ 100 mls/hr IV . Q10H [facility] Rx#:[id number] Intake, IV Titration 1000 Amount Sodium Chloride 0.45% 1, 1000 000 ml @ 100 mls/hr IV . Q10H [facility] Rx#:[id number] Other: Voiding Method Toilet # Voids 3 3 - Exam Head normocephalic and atraumatic Neck supple no JVD no goiter Lungs clear to auscultation bilaterally no wheezing or crackles Heart regular rate and rhythm S1-S2, no rub or gallop Abdomen is soft with mild tenderness in the periumbilical area nondistended positive bowel sounds no hepatosplenomegaly Extremities no edema no cyanosis or clubbing Neuro alert and orientated to 3 positive tremor noted bilateral hands - Labs CBC & Chem 7: 05/29/18 06:54 05/29/18 06:54 Labs: Abnormal Lab Results - Last 24 Hours (Table) 05/28/18 05/28/18 05/29/18 Range/Units 12:07 20:01 06:54 RBC 4.06 L (4.30-5.90) m/uL Hgb 12.3 L (13.0-17.5) gm/dL Hct 38.6 L (39.0-53.0) % RDW 16.7 H (11.5-15.5) % Plt Count 137 L (150-450) k/uL POC Glucose (mg/dL) 111 H 102 H (75-99) mg/dL Assessment and Plan Plan: 1. Alcohol withdrawal and alcohol intoxication: Alcohol level 238 on admission. Start the CIWA protocol with IV Ativan. Continue multivitamin, thiamine and folate acid. Continue with IV fluid hydration. Consult social work 2. Hypernatremia: Sodium level 147. Likely related to patient's alcohol use. We'll switch IV fluids to 0.45 saline at 100 mL an hour. Repeat sodium level normal at 138 3. Possible urinary retention: Bladder scan patient. Check postvoid residual. Urinalysis negative. Continue with IV fluids. Patient reporting now urinating without difficulty. Still awaiting bladder scan results discussed with nursing staff. 4. Sinus tachycardia secondary to alcohol withdrawal. Patient did not take the nadolol this morning. Restart nadolol now 5. Chest discomfort likely secondary to patient's sinus tachycardia. Troponin negative. EKG confirming sinus tachycardia 6. Hypomagnesemia: Magnesium 1.3. Patient received magnesium supplement. Repeat magnesium level in a.m. 7. History of alcohol liver cirrhosis with portal hypertension 8. History of esophageal varices with an EGD and ligation on 10/21/2017 9. History of PE 10. History of diabetes mellitus type 2. Resume metformin and sliding scale coverage 11. History of paroxysmal atrial fibrillation not on anticoagulation due to history of bleeding from his esophageal varices 12. History of COPD: Stable 13. Diarrhea, stool positive for C. diff patient was started on oral vancomycin 250 mg by mouth every 6 hours, patient stated that his symptoms are worsening at this time will consult infectious disease Dr. Hankins GI prophylaxis Protonix and DVT prophylaxis Lovenox Patient is improving gradually possible discharge to home tomorrow
[2018-05-29] MEDS: SODIUM CHLORIDE 0.45% 1,000 ML IV SCH ×2 (11:18→20:50)
[2018-05-29 12:14] LABS: Glucose,Whole Blood 95 mg/dL (75-99)
[2018-05-29 16:54] LABS: Glucose,Whole Blood 92 mg/dL (75-99)
[2018-05-29 20:11] LABS: Glucose,Whole Blood 108 mg/dL (75-99)
[2018-05-29] MEDS: MAGNESIUM OXIDE 400 MG TAB PO SCH (20:56)
[2018-05-30] MEDS: VANCOMYCIN ORAL SOLUTION 250 MG/5 ML BOTTLE PO SCH ×5 (00:18→23:50)
[2018-05-30] MEDS: CHERRY FLAVOR 60 ML BOTTLE PO SCH ×5 (00:18→23:50)
--- NOTE | 2018-05-30 00:48 | PN ---
PROGRESS NOTE DATE OF SERVICE: May 29, 2018. REASON FOR FOLLOWUP: C difficile colitis. INTERVAL HISTORY: The patient is afebrile. He is breathing comfortably. Denies any abdominal pain. His diarrhea has slowed, has about 3 stools today, slightly forming up. No blood in it. No chest pain, shortness of breath or cough. PHYSICAL EXAMINATION: Blood pressure 152/76, pulse of 73, temperature 98. He is 96% on room air. General description is a middle aged male lying in bed in no distress. Respiratory system: Unlabored breathing. Clear to auscultation anteriorly. Heart S1, S2. Regular rate and rhythm. Abdomen soft. No tenderness. LABS: Hemoglobin 12.2, white count 5.1. BUN of 11, creatinine 0.76. DIAGNOSTIC IMPRESSION AND PLAN: Patient with C diff colitis. Slowly clinically improving on p.o. vancomycin and Questran that will continue to finish a 10 day course of therapy with close outpatient followup. Continue supportive care. MMODL / IJN: [id number] /
[2018-05-30] MEDS: SODIUM CHLORIDE 0.45% 1,000 ML IV SCH ×3 (05:40→23:49)
[2018-05-30 07:26] LABS: Glucose,Whole Blood 84 mg/dL (75-99)
[2018-05-30] MEDS: INSULIN ASPART 100 UNIT/ML 1 ML 10 ML VIAL SQ SCH ×4 (08:23→20:46)
[2018-05-30] MEDS: ASPIRIN 81 MG PO SCH (08:37)
[2018-05-30] MEDS: metFORMIN 500 MG TAB PO SCH ×2 (08:37→17:37)
[2018-05-30] MEDS: MULTIVITAMINS, THERA 1 EACH TAB PO SCH (08:37)
[2018-05-30] MEDS: amLODIPine 5 MG TAB PO SCH (08:37)
[2018-05-30] MEDS: CHOLECALCIFEROL 1,000 UNIT TAB PO SCH (08:37)
[2018-05-30] MEDS: FOLIC ACID 1 MG TAB PO SCH (08:37)
[2018-05-30] MEDS: FAMOTIDINE 20 MG TAB PO SCH ×2 (08:38→22:20)
[2018-05-30] MEDS: NADOLOL 20 MG TAB PO SCH (08:38)
[2018-05-30] MEDS: CHOLESTYRAMINE (WITH SUGAR) 4 GM PACKET PO SCH ×2 (08:38→22:20)
[2018-05-30] MEDS: FERROUS SULFATE 325 MG TAB PO SCH (08:38)
[2018-05-30] MEDS: THIAMINE 100 MG TAB PO SCH (08:38)
[2018-05-30] MEDS: cloNIDine HCL 0.1 MG TAB PO SCH ×2 (08:38→22:20)
[2018-05-30] MEDS: ENOXAPARIN 40 MG/0.4 ML SYRINGE SQ SCH (08:38)
[2018-05-30 12:15] LABS: Glucose,Whole Blood 91 mg/dL (75-99)
[2018-05-30] MEDS ORDERED: MINERAL OIL-WHITE PETROLATUM 120 GM JAR TOPICAL PRN (12:21)
--- NOTE | 2018-05-30 13:31 | P.DS ---
Providers Date of admission: 05/23/18 13:30 Expected date of discharge: 05/30/18 Attending physician: Charlette Finney Consults: 05/26/18 09:20 Consult Physician Routine Consulting Provider: Jered Hankins Consult Reason/Comments: c diff Do you want consulting provider notified?: Yes Primary care physician: [facility] Course: Discharge diagnosis 1. Alcohol withdrawal and alcohol intoxication: Alcohol level 238 on admission. 2. Hypernatremia: Sodium level 147. Likely related to patient's alcohol use. Improved with IV fluids 3. Diarrhea, stool positive for C. diff. continue on oral vancomycin 250 mg by mouth every 6 hours and Questran for 10 more days 4. Sinus tachycardia secondary to alcohol withdrawal. Patient did not take the nadolol this morning. Restart nadolol now 5. Chest discomfort likely secondary to patient's sinus tachycardia. Troponin negative. EKG confirming sinus tachycardia 6. Hypomagnesemia patient received supplement 7. History of alcohol liver cirrhosis with portal hypertension 8. History of esophageal varices with an EGD and ligation on 10/21/2017 9. History of PE 10. History of diabetes mellitus type 2. Resume metformin and sliding scale coverage 11. History of paroxysmal atrial fibrillation not on anticoagulation due to history of bleeding from his esophageal varices 12. History of COPD: Stable 13. Eczema continue Eucerin cream Hospital course This is a 63-year-old male, patient of [facility]. Patient has a known past medical history of alcohol abuse, alcoholic liver cirrhosis with portal hypertension, esophageal varices with previous GI bleed, paroxysmal atrial fibrillation not on anticoagulation due to GI bleed, diabetes mellitus, CVA and PE. Patient has had multiple hospitalizations due to alcohol withdrawal. Last hospitalization was just in April. Patient reports that he has been drinking more frequently due to the holidays and being around his sister and brother who drink alcohol around him. Patient towards that he drank a fifth of whiskey last night. He presents to the emergency department with complaints of heart palpitation and shaking. He feels he is going through alcohol withdrawal. Patient was given IV fluids IV Ativan thiamine and will also be started on full casted and multivitamin. Patient's had reported some chest discomfort with a heart palpitations. EKG had shown sinus tachycardia with a heart rate of 126 troponin was negative chest x-ray negative. Patient admitted to the hospital with acute alcohol withdrawal. EtOH level elevated at 238. Patient does have a sodium level 147 and chloride 109. Magnesium low at 1.5. Patient receiving supplement. AST elevated at 62. Patient also has been having dry heaves no actual vomiting. Does report some abdominal discomfort. Also reported that he is not urinating as frequently as he usually does. Bladder scan will be checked for possible urinary retention. Urinalysis also has been ordered. 05/24/2018 patient's heart rate has improved. Sodium level also improved down to 137. Urinalysis is negative for infection. Drug screen positive for benzodiazepine. Patient is complaining of diarrhea about 4-5 stools during the day. Stool for C. diff has been ordered. Magnesium being replaced. Patient denies any chest pain, shortness breath, vomiting or urinary symptoms. He still has having some dry heaves. Still requiring IV Ativan for withdrawal symptoms On 05/25/2018 patient was seen and examined on the medical floor he is alert and oriented 3 in no apparent distress he is complaining of diarrhea and lower abdominal pain and discomfort otherwise he denies any complaints there is no fever or chills no headache no dizziness no chest pain no shortness of breath no cough no nausea or vomiting and no urinary symptoms. Clostridium difficile results came back positive last night patient was started on oral vancomycin. Today he had 4 bouts of diarrhea this morning. On 05/26/2018 patient was seen and examined he is alert and oriented 3 he is still complaining of abdominal pain and diarrhea he states he had 7-8 bowel movements this morning he states he was up all night with abdominal pain otherwise he denies any complaints there is no fever or chills no headache or dizziness no chest pain no shortness of breath no cough no nausea or vomiting and no urinary symptoms. 05/27/2018 patient was seen and examined on the medical floor he is still complaining of diarrhea he states he had 4 liquid to soft bowel movement this morning, he is also complaining of abdominal discomfort, he is maintained on oral vancomycin he was seen by infectious disease Dr. Hankins and Questran was added to his regimen. Otherwise patient is stable he denies any other complaints there is no fever or chills no headache or dizziness no chest pain no shortness of breath no cough no nausea or vomiting, and no urinary symptoms On 05/28/2018 patient was seen and examined on the medical floor he is alert and oriented 3 in no apparent distress he is still complaining of diarrhea and complaining of abdominal discomfort otherwise he denies any complaints at this time he states he had 4 bowel movements this morning otherwise there is no fever or chills no headache or dizziness no chest pain no shortness of breath no cough no nausea or vomiting and no urinary symptoms On 05/29/2018 patient was seen and examined on the medical floor he is alert and oriented he is complaining of loose stools and mild abdominal discomfort otherwise he denies any complaints there is no fever or chills no headache or dizziness no shortness of breath no chest pain no cough no nausea or vomiting and no urinary symptoms. 05/30/2018 patient is diarrhea has improved. No stools this morning. Infectious diseases recommending vancomycin and Questran for 10 more days to complete treatment of the C. diff. Patient is tolerating diet. Patient is been educated to refrain from any alcohol use. She'll follow-up with his PCP in 3 days. Also follow up with infectious disease 1 week. Patient is medically stable for discharge. Please refer to chart for any further details. I performed an examination of the patient and discussed their management with the physician Application Technician. I have reviewed the Physician Application Technician's notes and agree with the documented findings and plan of care Patient Condition at Discharge: Stable Plan - Discharge Summary Discharge Rx Participant: No New Discharge Prescriptions: New amLODIPine [Norvasc] 5 mg PO DAILY #30 tab Colloidal Oatmeal [Eucerin Eczema Relief] 1 applic TOPICAL BID #30 gm Cholestyramine (with Sugar) [Questran Packet] 4 gm PO BID@1000,2100 #20 packet Vancomycin Oral Solution 250 mg PO Q6HR 10 Days #200 ml Continue metFORMIN HCL 1,000 mg PO BID Nadolol [Corgard] 20 mg PO DAILY #30 tab Cholecalciferol [Vitamin D3] 1,000 unit PO DAILY cloNIDine HCL [Catapres] 0.1 mg PO BID #60 tab Aspirin [Children's Aspirin] 81 mg PO DAILY #30 tab.chew Magnesium Oxide [Mag-Ox] 400 mg PO HS Pantoprazole [Protonix] 40 mg PO BID Folic Acid 1 mg PO DAILY Ferrous Sulfate [Iron (65 MG Elemental)] 325 mg PO DAILY LORazepam [Ativan] 0.5 mg PO Q6HR PRN 3 Days #12 tab PRN Reason: Anxiety Discharge Medication List metFORMIN HCL 1,000 mg PO BID 09/23/17 [History] Nadolol [Corgard] 20 mg PO DAILY #30 tab 11/11/17 [Rx] Cholecalciferol [Vitamin D3] 1,000 unit PO DAILY 01/06/18 [History] Aspirin [Children's Aspirin] 81 mg PO DAILY #30 tab.chew 03/26/18 [Rx] cloNIDine HCL [Catapres] 0.1 mg PO BID #60 tab 03/26/18 [Rx] Ferrous Sulfate [Iron (65 MG Elemental)] 325 mg PO DAILY 04/24/18 [History] Folic Acid 1 mg PO DAILY 04/24/18 [History] Magnesium Oxide [Mag-Ox] 400 mg PO HS 04/24/18 [History] Pantoprazole [Protonix] 40 mg PO BID 04/24/18 [History] LORazepam [Ativan] 0.5 mg PO Q6HR PRN 3 Days #12 tab 05/06/18 [Rx] Cholestyramine (with Sugar) [Questran Packet] 4 gm PO BID@1000,2100 #20 packet 05/30/18 [Rx] Colloidal Oatmeal [Eucerin Eczema Relief] 1 applic TOPICAL BID #30 gm 05/30/18 [ Rx] Vancomycin Oral Solution 250 mg PO Q6HR 10 Days #200 ml 05/30/18 [Rx] amLODIPine [Norvasc] 5 mg PO DAILY #30 tab 05/30/18 [Rx] Follow up Appointment(s)/Referral(s): [facility], [NON-STAFF] - As Needed Yoon Phillips DO [Primary Care Provider] - 3 Days Jered Hankins MD [STAFF PHYSICIAN] - 1 Week Activity/Diet/Wound Care/Special Instructions: Diet: cardiac Activity: as tolerated NO alcohol Discharge Disposition: HOME WITH HOME HEALTH SERVICES
[2018-05-30 14:47] VITALS: BMI 26.9
[2018-05-30] MEDS ORDERED: MAGNESIUM SULFATE-D5W PMX 1 GM in DEXTROSE/WATER 1 100ML.BAG IVPB ONE (16:30)
[2018-05-30 17:10] LABS: Glucose,Whole Blood 97 mg/dL (75-99)
[2018-05-30 20:14] LABS: Glucose,Whole Blood 105 mg/dL (75-99)
--- NOTE | 2018-05-30 21:35 | PN ---
PROGRESS NOTE DATE OF SERVICE: 05/30/2018 REASON FOR FOLLOWUP: C difficile colitis. INTERVAL HISTORY: The patient is currently afebrile. He has been breathing comfortably. Denies having any chest pain or shortness of breath or cough. No abdominal pain, diarrhea has improved. PHYSICAL EXAMINATION: Blood pressure 145/80 with a pulse of 79, temperature 98.2. He is 95% on room air. General description is a middle-aged male lying in bed in no distress. Respiratory system: Unlabored breathing. Clear to auscultation anteriorly. Heart S1, S2. Regular rate and rhythm. Abdomen soft, no tenderness. LABS: No new labs have been obtained today. DIAGNOSTIC IMPRESSION AND PLAN: Patient with C difficile colitis. The patient clinically responding to oral vancomycin to continue for another 7-10 days along with oral Questran. The patient advised to decrease his Probiotic . Continue with the supportive care. MMODL / IJN: [id number] /
[2018-05-30] MEDS: MAGNESIUM OXIDE 400 MG TAB PO SCH (22:21)
[2018-05-31 01:30] VITALS: TEMP 97.8
[2018-05-31] MEDS: CHERRY FLAVOR 60 ML BOTTLE PO SCH ×2 (05:41→11:48)
[2018-05-31] MEDS: VANCOMYCIN ORAL SOLUTION 250 MG/5 ML BOTTLE PO SCH ×2 (05:42→11:47)
[2018-05-31 07:21] VITALS: BP 122/73; PULSE 70; RESP 14
[2018-05-31 07:24] LABS: Glucose,Whole Blood 90 mg/dL (75-99)
[2018-05-31] MEDS: INSULIN ASPART 100 UNIT/ML 1 ML 10 ML VIAL SQ SCH ×2 (07:26→12:15)
[2018-05-31] MEDS: CHOLESTYRAMINE (WITH SUGAR) 4 GM PACKET PO SCH (07:50)
[2018-05-31] MEDS: ENOXAPARIN 40 MG/0.4 ML SYRINGE SQ SCH (07:50)
[2018-05-31] MEDS: MULTIVITAMINS, THERA 1 EACH TAB PO SCH (07:51)
[2018-05-31] MEDS: NADOLOL 20 MG TAB PO SCH (07:51)
[2018-05-31] MEDS: cloNIDine HCL 0.1 MG TAB PO SCH (07:51)
[2018-05-31] MEDS: metFORMIN 500 MG TAB PO SCH (07:51)
[2018-05-31] MEDS: amLODIPine 5 MG TAB PO SCH (07:51)
[2018-05-31] MEDS: ASPIRIN 81 MG PO SCH (07:51)
[2018-05-31] MEDS: FAMOTIDINE 20 MG TAB PO SCH (07:51)
[2018-05-31] MEDS: FOLIC ACID 1 MG TAB PO SCH (07:51)
[2018-05-31] MEDS: THIAMINE 100 MG TAB PO SCH (07:51)
[2018-05-31] MEDS: FERROUS SULFATE 325 MG TAB PO SCH (07:52)
[2018-05-31] MEDS: CHOLECALCIFEROL 1,000 UNIT TAB PO SCH (07:52)
[2018-05-31] MEDS ORDERED: MAGNESIUM SULFATE-D5W PMX 1 GM in DEXTROSE/WATER 1 100ML.BAG IVPB ONE (11:30)
[2018-05-31 12:10] LABS: Glucose,Whole Blood 110 mg/dL (75-99)
[2018-05-31] MEDS: SODIUM CHLORIDE 0.45% 1,000 ML IV SCH (12:16)
== END 2018-05-31 14:45 | disposition home health service (06) | DRG 897 ==
LOC: EC 10:05 → 3NMEDONC 13:30 → 4SSUR 17:13
PROVIDERS: ADMIT Internal Medicine; ATTEND Internal Medicine
DX: F10.229 Alcohol dependence with intoxication, unspecified (principal); A04.72 Enterocolitis due to Clostridium difficile, not specified as recurrent; E87.0 Hyperosmolality and hypernatremia; K76.6 Portal hypertension; F10.239 Alcohol dependence with withdrawal, unspecified; F32.9 Major depressive disorder, single episode, unspecified; F41.9 Anxiety disorder, unspecified; E11.9 Type 2 diabetes mellitus without complications; E78.5 Hyperlipidemia, unspecified; E83.42 Hypomagnesemia; I10 Essential (primary) hypertension; I48.0 Paroxysmal atrial fibrillation; J44.9 Chronic obstructive pulmonary disease, unspecified; K21.9 Gastro-esophageal reflux disease without esophagitis; K70.30 Alcoholic cirrhosis of liver without ascites; L30.9 Dermatitis, unspecified; Z79.82 Long term (current) use of aspirin; Z79.4 Long term (current) use of insulin; Z79.899 Other long term (current) drug therapy; Z82.3 Family history of stroke; Z82.5 Family history of asthma and other chronic lower respiratory diseases; C61 Malignant neoplasm of prostate; Z86.711 Personal history of pulmonary embolism; Z86.73 Personal history of transient ischemic attack (TIA), and cerebral infarction without residual deficits; Z87.19 Personal history of other diseases of the digestive system; D69.6 Thrombocytopenia, unspecified; Z92.3 Personal history of irradiation; M50.30 Other cervical disc degeneration, unspecified cervical region; M54.30 Sciatica, unspecified side; G89.29 Other chronic pain; D50.9 Iron deficiency anemia, unspecified; Z88.8 Allergy status to other drugs, medicaments and biological substances; Z91.012 Allergy to eggs; M19.90 Unspecified osteoarthritis, unspecified site; Z87.01 Personal history of pneumonia (recurrent); Z90.49 Acquired absence of other specified parts of digestive tract; R33.9 Retention of urine, unspecified
CPT/HCPCS: 36415; 71046; 80053; 80306; 80320; 81003; 82150; 83036; 83690; 83735; 84484; 85025; 85610; 87324; 93005; 96361; 96372; 96374; 96376; 99285

== ENCOUNTER 2018-06-05 23:49 | Emergency (ER) | payer OTHER ==
[2018-06-06] MEDS ORDERED: LORazepam 2 MG/ML INJ IV STA ×2 (00:16→02:36)
[2018-06-06] MEDS ORDERED: SODIUM CHLORIDE 0.9% 1,000 ML IV STA (00:16)
[2018-06-06 00:47] LABS: Anisocytosis Slight; Basophils % (A) 0 %; Eosinophils # (A) 0.1 k/uL (0-0.7); Eosinophils % (A) 1 %; HCT 39.6 % (39.0-53.0); HGB 13.1 gm/dL (13.0-17.5); Lymphocytes # (A) 2.5 k/uL (1.0-4.8); Lymphocytes % (A) 32 %; MCH 31.2 pg (25.0-35.0); MCHC 33.1 g/dL (31.0-37.0); MCV 94.3 fL (80.0-100.0); Mean Platelet Volume 7.1; Monocytes # (A) 0.5 k/uL (0-1.0); Monocytes % (A) 6 %; Neutrophils # (A) 4.7 k/uL (1.3-7.7); Neutrophils % (A) 59 %; Platelet Count 201 k/uL (150-450); RDW 16.5 % (11.5-15.5); WBC 7.9 k/uL (3.8-10.6)
[2018-06-06 00:57] LABS: ALT 78 U/L (21-72); AST 128 U/L (17-59); Albumin 4.2 g/dL (3.5-5.0); Alkaline Phosphatase 131 U/L (38-126); Amylase 120 U/L (30-110); Anion Gap 16 mmol/L; Blood Urea Nitrogen 19 mg/dL (9-20); Carbon Dioxide 23 mmol/L (22-30); Chloride 103 mmol/L (98-107); Glucose 117 mg/dL (74-99); Lipase 168 U/L (23-300); Magnesium 1.9 mg/dL (1.6-2.3); Phosphorus 2.9 mg/dL (2.5-4.5); Potassium 4.3 mmol/L (3.5-5.1); Sodium 142 mmol/L (137-145); Total Bilirubin 0.7 mg/dL (0.2-1.3); Total Protein 8.2 g/dL (6.3-8.2)
--- NOTE | 2018-06-06 01:00 | ED ---
Alcohol HPI - General Chief Complaint: Alcohol Stated Complaint: ETOH Time Seen by Provider: 06/05/18 23:53 Source: patient, EMS, RN notes reviewed, old records reviewed Mode of arrival: EMS Limitations: no limitations - History of Present Illness Initial Comments: Patient is a 63-year-old male well-known to the emergency department for alcohol abuse. Patient was recently admitted and discharged for alcohol abuse and tachycardia. He was also found to have C. diff is not admission. He isn't taking his antibiotics. Patient states that he drank a pint today. He will recheck return to emergency department for help for his alcohol abuse. He complains of feeling shaky. Patient states he has no chest pain or abdominal pain. Patient reports that he is seeking help for his alcohol addiction. - Related Data Home Medications Medication Instructions Recorded Confirmed metFORMIN HCL 1,000 mg PO BID 09/23/17 05/23/18 Cholecalciferol [Vitamin D3] 1,000 unit PO DAILY 01/06/18 05/23/18 Ferrous Sulfate [Iron (65 MG 325 mg PO DAILY 04/24/18 05/23/18 Elemental)] Folic Acid 1 mg PO DAILY 04/24/18 05/23/18 Magnesium Oxide [Mag-Ox] 400 mg PO HS 04/24/18 05/23/18 Pantoprazole [Protonix] 40 mg PO BID 04/24/18 05/23/18 Previous Rx's Medication Instructions Recorded Nadolol [Corgard] 20 mg PO DAILY #30 tab 11/11/17 Aspirin [Children's Aspirin] 81 mg PO DAILY #30 tab.chew 03/26/18 cloNIDine HCL [Catapres] 0.1 mg PO BID #60 tab 03/26/18 LORazepam [Ativan] 0.5 mg PO Q6HR PRN 3 Days #12 tab 05/06/18 Cholestyramine (with Sugar) 4 gm PO BID@1000,2100 #20 packet 05/30/18 [Questran Packet] Colloidal Oatmeal [Eucerin Eczema 1 applic TOPICAL BID #30 gm 05/30/18 Relief] Vancomycin Oral Solution 250 mg PO Q6HR 10 Days #200 ml 05/30/18 amLODIPine [Norvasc] 5 mg PO DAILY #30 tab 05/30/18 chlordiazePOXIDE HCl [Librium] 10 mg PO TID 3 Days #9 capsule 06/06/18 Allergies Allergy/AdvReac Type Severity Reaction Status Date / Time adhesive tape Allergy Rash/Hives Verified 05/23/18 11:22 egg AdvReac Nausea & Verified 05/23/18 11:22 Vomiting lisinopril AdvReac EYES Verified 05/23/18 11:22 BURN&ITCH/WEAKNESS tomato AdvReac Nausea & Verified 05/23/18 11:22 Vomiting & Diarrhea Review of Systems ROS Statement: Those systems with pertinent positive or pertinent negative responses have been documented in the HPI. ROS Other: All systems not noted in ROS Statement are negative. Past Medical History Past Medical History: Atrial Fibrillation, Cancer, Chest Pain / Angina, COPD, CVA/TIA, Diabetes Mellitus, GERD/Reflux, GI Bleed, Hyperlipidemia, Hypertension , Pneumonia, Prostate Disorder, Pulmonary Embolus (PE) Additional Past Medical History / Comment(s): tachycardia/palpitations likely d/ t alcohol withdrawal. hx of Alcoholism, chronic alcoholic cirrhosis with portal hypertension and previous history of upper and lower GI bleeding, esophageal varices, previous history of childhood seizure which he outgrew not taking any antiepileptic medication-possibly had recent seizure-2018 thought d/ t alcohol withdrawal, pulmonary embolism x 2 R lung, TIA, diverticulosis, chronic lower bilateral extremity ankle edema if he walks alot, previous history of septicemia, cervical disc disease with chronic back pain with r sided sciatica, degenerative arthritis involving the lower back, tinnitus, vitamin D deficiency, iron anemia, chronic thrombocytopenia. pt had radiation 04/28 for prostate cancer History of Any Multi-Drug Resistant Organisms: MRSA Past Surgical History: Appendectomy, Cholecystectomy Additional Past Surgical History / Comment(s): EGDs/esophageal varicies bandings , colonoscopies. Past Anesthesia/Blood Transfusion Reactions: No Reported Reaction Additional Past Anesthesia/Blood Transfusion Reaction / Comment(s): after appendix removed sob Past Psychological History: Anxiety, Depression Smoking Status: Never smoker Past Alcohol Use History: Abuse, Daily Past Drug Use History: None Reported - Past Family History Mother Family Medical History: COPD, CVA/TIA, Dementia Additional Family Medical History / Comment(s): from a stroke Father Family Medical History: Pneumonia Additional Family Medical History / Comment(s): Father of pneumonia when he was close to 80 yrs old. General Exam - General Exam Comments Initial Comments: 63-year-old male. Alert and oriented 3. No acute distress. Limitations: no limitations General appearance: alert, in no apparent distress Head exam: Present: atraumatic, normocephalic, normal inspection Eye exam: Present: normal appearance, PERRL, EOMI. Absent: scleral icterus, conjunctival injection, periorbital swelling ENT exam: Present: normal exam, mucous membranes moist Neck exam: Present: normal inspection. Absent: tenderness, meningismus, lymphadenopathy Respiratory exam: Present: normal lung sounds bilaterally. Absent: respiratory distress, wheezes, rales, rhonchi, stridor Cardiovascular Exam: Present: regular rate, normal rhythm, normal heart sounds. Absent: systolic murmur, diastolic murmur, rubs, gallop, clicks GI/Abdominal exam: Present: soft, normal bowel sounds. Absent: distended, tenderness, guarding, rebound, rigid Extremities exam: Present: normal inspection, full ROM, normal capillary refill. Absent: tenderness, pedal edema, joint swelling, calf tenderness Back exam: Present: normal inspection Neurological exam: Present: alert, oriented X3, CN II-XII intact Psychiatric exam: Present: normal affect, normal mood Skin exam: Present: warm, dry, intact, normal color. Absent: rash Course Vital Signs 06/05/18 06/06/18 06/06/18 23:59 00:43 01:19 Temperature 97.9 F Pulse Rate 138 H 118 H 114 H Respiratory 18 18 18 Rate Blood Pressure 129/92 143/83 120/69 O2 Sat by Pulse 95 95 95 Oximetry 06/06/18 06/06/18 06/06/18 01:20 01:30 01:40 Temperature Pulse Rate 116 H 115 H 116 H Respiratory 18 18 18 Rate Blood Pressure 120/69 120/69 107/56 O2 Sat by Pulse 95 95 95 Oximetry 06/06/18 06/06/18 06/06/18 01:50 02:00 02:10 Temperature Pulse Rate 115 H 114 H 115 H Respiratory 18 18 18 Rate Blood Pressure 107/56 107/56 106/59 O2 Sat by Pulse 95 95 95 Oximetry 06/06/18 06/06/18 02:20 02:30 Temperature Pulse Rate 118 H 117 H Respiratory Rate Blood Pressure 106/59 106/59 O2 Sat by Pulse 95 96 Oximetry Medical Decision Making - Medical Decision Making 63-year-old male presents return today searching home for a call addiction. He complains of some shakiness. No other complaints at this time. Patient was emergency department somewhat tachycardic at 130. Patient was given 2 L bolus labwork obtained. Lab work was otherwise relatively unremarkable. It is noted the Patient has some mild acidosis with anion gap. Due to patient's alcohol use. Patient was given fluids. I discussed with Patient we do not admit for alcohol intoxication and rehab facility. Discussed that I can treat out patiently with Librium. Patient was also started on Norvasc in has Coreg. He reports he has not been taking these medications today with his drinking. Given 1 dose of Norvasc. Blood pressure has been stable power heart rate has been elevated. This has been similar to all of his previous 5 admissions within the past month. I discussed at this time Patient can continue to follow up outpatient only. Discharged with prescription for Librium. All questions answered and return parameters were discussed. He will continue his antibiotics for his C. diff. - Lab Data Result diagrams: 06/06/18 00:39 06/06/18 00:39 Lab Results 06/06/18 06/06/18 06/06/18 Range/Units 00:39 00:39 00:47 WBC 7.9 (3.8-10.6) k/uL RBC 4.20 L (4.30-5.90) m/uL Hgb 13.1 (13.0-17.5) gm/dL Hct 39.6 (39.0-53.0) % MCV 94.3 (80.0-100.0) fL MCH 31.2 (25.0-35.0) pg MCHC 33.1 (31.0-37.0) g/dL RDW 16.5 H (11.5-15.5) % Plt Count 201 (150-450) k/uL Neutrophils % 59 % Lymphocytes % 32 % Monocytes % 6 % Eosinophils % 1 % Basophils % 0 % Neutrophils # 4.7 (1.3-7.7) k/uL Lymphocytes # 2.5 (1.0-4.8) k/uL Monocytes # 0.5 (0-1.0) k/uL Eosinophils # 0.1 (0-0.7) k/uL Basophils # 0.0 (0-0.2) k/uL Anisocytosis Slight Sodium 142 (137-145) mmol/L Potassium 4.3 (3.5-5.1) mmol/L Chloride 103 (98-107) mmol/L Carbon Dioxide 23 (22-30) mmol/L Anion Gap 16 mmol/L BUN 19 (9-20) mg/dL Creatinine 0.94 (0.66-1.25) mg/dL Est GFR (CKD-EPI)AfAm >90 (>60 ml/min/1.73 sqM) Est GFR (CKD-EPI)NonAf 87 (>60 ml/min/1.73 sqM) Glucose 117 H (74-99) mg/dL POC Glucose (mg/dL) 116 H (75-99) mg/dL POC Glu Brush Stainer ID Sophie Zamudio Calcium 9.0 (8.4-10.2) mg/dL Phosphorus 2.9 (2.5-4.5) mg/dL Magnesium 1.9 (1.6-2.3) mg/dL Total Bilirubin 0.7 (0.2-1.3) mg/dL AST 128 H (17-59) U/L ALT 78 H (21-72) U/L Alkaline Phosphatase 131 H (38-126) U/L Total Protein 8.2 (6.3-8.2) g/dL Albumin 4.2 (3.5-5.0) g/dL Amylase 120 H (30-110) U/L Lipase 168 (23-300) U/L Serum Alcohol 185 mg/dL Disposition Clinical Impression: ETOH abuse Disposition: HOME SELF-CARE Condition: Good Instructions: Alcohol Intoxication (ED) Additional Instructions: Advised to follow-up with outpatient services in regards to EtOH abuse. Patient should take the Librium. Discontinue drinking. Follow-up with your primary care physician. Prescriptions: chlordiazePOXIDE HCl [Librium] 10 mg PO TID 3 Days #9 capsule Is patient prescribed a controlled substance at d/c from ED?: No Referrals: Yoon Phillips DO [Primary Care Provider] - 1-2 days Time of Disposition: 02:23
[2018-06-06 01:01] LABS: Alcohol 185 mg/dL
[2018-06-06 01:03] LABS: Glucose,Whole Blood 116 mg/dL (75-99)
[2018-06-06] MEDS ORDERED: SODIUM CHLORIDE 0.9% 1,000 ML IV ONE (01:43)
[2018-06-06] MEDS ORDERED: amLODIPine 5 MG TAB PO STA (02:36)
[2018-06-06 06:41] VITALS: BP 121/84; PULSE 83; RESP 17; TEMP 98.8
== END 2018-06-06 06:18 | disposition home or self-care (01) ==
LOC: EC 23:49
DX: F10.10 Alcohol abuse, uncomplicated (principal); A04.72 Enterocolitis due to Clostridium difficile, not specified as recurrent; E09.10 Drug or chemical induced diabetes mellitus with ketoacidosis without coma; R00.0 Tachycardia, unspecified; K21.9 Gastro-esophageal reflux disease without esophagitis; E55.9 Vitamin D deficiency, unspecified; K70.30 Alcoholic cirrhosis of liver without ascites; D50.9 Iron deficiency anemia, unspecified; Z88.8 Allergy status to other drugs, medicaments and biological substances; Z91.012 Allergy to eggs; Z91.018 Allergy to other foods; Z91.09 Other allergy status, other than to drugs and biological substances; Z79.84 Long term (current) use of oral hypoglycemic drugs; Z79.899 Other long term (current) drug therapy; Z85.46 Personal history of malignant neoplasm of prostate; Z92.3 Personal history of irradiation; Z90.49 Acquired absence of other specified parts of digestive tract
CPT/HCPCS: 36415; 80053; 82150; 83690; 83735; 84100; 85025; 99285; 96374; 96376; 96361 ×2; G0480; J2060; 80320

== ENCOUNTER 2018-06-06 18:41 | Emergency (ER) | payer OTHER ==
[2018-06-06 18:56] VITALS: RESP 18
[2018-06-06] MEDS ORDERED: diphenhydrAMINE 50 MG/ML 1 ML VIAL IVP STA (19:57)
[2018-06-06] MEDS ORDERED: ONDANSETRON 4 MG/2 ML VIAL IVP STA (19:57)
[2018-06-06] MEDS ORDERED: SODIUM CHLORIDE 0.9% 1,000 ML IV STA (19:57)
[2018-06-06] MEDS ORDERED: LORazepam 1 MG TAB PO STA (19:58)
--- NOTE | 2018-06-06 20:02 | ED ---
General Adult HPI - General Chief complaint: Headache Stated complaint: chest pain, headache Time Seen by Provider: 06/06/18 19:36 Source: patient Mode of arrival: ambulatory Limitations: no limitations - History of Present Illness Initial comments: 63-year-old male patient presents to the emergency department today for evaluation of chest pain, abdominal pain, and dry heaves. Patient states that he was discharged from here on 7 AM after being evaluated for alcohol intoxication. Patient states a couple hours after his discharge he started to have some discomfort to his chest and some intermittent pains to the abdomen. Patient states he has had several episodes of dry heaves with this. States that he has had a couple episodes of diarrhea as well. Denies any fevers or chills. Does admit to frequent alcohol use, states every few days. Patient denies any alcohol use today. He denies any shortness of breath, sweats, dizziness, or weakness. Denies any seizure-like activity. Patient denies any recent rash, back pain, numbness, tingling, dizziness, weakness, hematuria, dysuria, urinary urgency, urinary frequency, visual changes, or any other complaints. - Related Data Home Medications Medication Instructions Recorded Confirmed metFORMIN HCL 1,000 mg PO BID 09/23/17 05/23/18 Cholecalciferol [Vitamin D3] 1,000 unit PO DAILY 01/06/18 05/23/18 Ferrous Sulfate [Iron (65 MG 325 mg PO DAILY 04/24/18 05/23/18 Elemental)] Folic Acid 1 mg PO DAILY 04/24/18 05/23/18 Magnesium Oxide [Mag-Ox] 400 mg PO HS 04/24/18 05/23/18 Pantoprazole [Protonix] 40 mg PO BID 04/24/18 05/23/18 Previous Rx's Medication Instructions Recorded Nadolol [Corgard] 20 mg PO DAILY #30 tab 11/11/17 Aspirin [Children's Aspirin] 81 mg PO DAILY #30 tab.chew 03/26/18 cloNIDine HCL [Catapres] 0.1 mg PO BID #60 tab 03/26/18 LORazepam [Ativan] 0.5 mg PO Q6HR PRN 3 Days #12 tab 05/06/18 Cholestyramine (with Sugar) 4 gm PO BID@1000,2100 #20 packet 05/30/18 [Questran Packet] Colloidal Oatmeal [Eucerin Eczema 1 applic TOPICAL BID #30 gm 05/30/18 Relief] Vancomycin Oral Solution 250 mg PO Q6HR 10 Days #200 ml 05/30/18 amLODIPine [Norvasc] 5 mg PO DAILY #30 tab 05/30/18 chlordiazePOXIDE HCl [Librium] 10 mg PO TID 3 Days #9 capsule 06/06/18 Allergies Allergy/AdvReac Type Severity Reaction Status Date / Time adhesive tape Allergy Rash/Hives Verified 06/06/18 18:56 egg AdvReac Nausea & Verified 06/06/18 18:56 Vomiting lisinopril AdvReac EYES Verified 06/06/18 18:56 BURN&ITCH/WEAKNESS tomato AdvReac Nausea & Verified 06/06/18 18:56 Vomiting & Diarrhea Review of Systems ROS Statement: Those systems with pertinent positive or pertinent negative responses have been documented in the HPI. ROS Other: All systems not noted in ROS Statement are negative. Past Medical History Past Medical History: Atrial Fibrillation, Cancer, Chest Pain / Angina, COPD, CVA/TIA, Diabetes Mellitus, GERD/Reflux, GI Bleed, Hyperlipidemia, Hypertension , Pneumonia, Prostate Disorder, Pulmonary Embolus (PE) Additional Past Medical History / Comment(s): tachycardia/palpitations likely d/ t alcohol withdrawal. hx of Alcoholism, chronic alcoholic cirrhosis with portal hypertension and previous history of upper and lower GI bleeding, esophageal varices, previous history of childhood seizure which he outgrew not taking any antiepileptic medication-possibly had recent seizure-2018 thought d/ t alcohol withdrawal, pulmonary embolism x 2 R lung, TIA, diverticulosis, chronic lower bilateral extremity ankle edema if he walks alot, previous history of septicemia, cervical disc disease with chronic back pain with r sided sciatica, degenerative arthritis involving the lower back, tinnitus, vitamin D deficiency, iron anemia, chronic thrombocytopenia. pt had radiation th04/28 for prostate cancer History of Any Multi-Drug Resistant Organisms: MRSA Past Surgical History: Appendectomy, Cholecystectomy Additional Past Surgical History / Comment(s): EGDs/esophageal varicies bandings , colonoscopies. Past Anesthesia/Blood Transfusion Reactions: No Reported Reaction Additional Past Anesthesia/Blood Transfusion Reaction / Comment(s): after appendix removed sob Past Psychological History: Anxiety, Depression Smoking Status: Never smoker Past Alcohol Use History: Abuse, Daily Past Drug Use History: None Reported - Past Family History Mother Family Medical History: COPD, CVA/TIA, Dementia Additional Family Medical History / Comment(s): from a stroke Father Family Medical History: Pneumonia Additional Family Medical History / Comment(s): Father of pneumonia when he was close to 80 yrs old. General Exam Limitations: no limitations General appearance: alert, in no apparent distress, other (This is a well- developed, well-nourished adult male patient in no acute distress. Vital signs upon presentation are temperature 98.9F, pulse 99, respirations 18, blood pressure 183/100, pulse ox 96% on room air.) Eye exam: Present: normal appearance, PERRL, EOMI. Absent: scleral icterus, conjunctival injection, periorbital swelling ENT exam: Present: normal exam, normal oropharynx, mucous membranes moist Respiratory exam: Present: normal lung sounds bilaterally. Absent: respiratory distress, wheezes, rales, rhonchi, stridor Cardiovascular Exam: Present: regular rate, normal rhythm, normal heart sounds. Absent: systolic murmur, diastolic murmur, rubs, gallop, clicks GI/Abdominal exam: Present: soft, tenderness (Generalized abdominal tenderness) , normal bowel sounds. Absent: distended, guarding, rebound, rigid Neurological exam: Present: alert, oriented X3, CN II-XII intact Psychiatric exam: Present: normal affect, normal mood Skin exam: Present: warm, dry, intact, normal color. Absent: rash Course Vital Signs 06/06/18 06/06/18 18:54 23:15 Temperature 98.9 F 98.4 F Pulse Rate 99 105 H Respiratory 18 18 Rate Blood Pressure 183/100 168/80 O2 Sat by Pulse 96 98 Oximetry EKG Findings - EKG Comments: EKG Findings:: EKG obtained at 1912 so sinus tachycardia with a ventricular rate of 110, SC interval 154, QRS duration 74, QT 358, QTC 484. No evidence of ST elevation or depression. Medical Decision Making - Medical Decision Making 63-year-old male patient presented to the emergency department today for evaluation of chest pain and abdominal pain. Physical examination is unremarkable. Lungs are clear to auscultation with good air movement. Labs reviewed and did reveal hemoglobin 12.6, INR 1.2, total bilirubin 1.7, AST 173, a LT 97, alk phos 139. Patient is a known alcoholic. Patient was discharged from this hospital this morning was waiting in the waiting room for over 12 hours, stated his ride never came. States he started having symptoms on 9 AM. Patient will be discharged home at this time to follow-up with his primary care physician for recheck in 1-2 days. Return parameters were discussed in detail. He verbalizes understanding and agrees with this plan. - Lab Data Result diagrams: 06/06/18 19:20 06/06/18 19:20 Lab Results 06/06/18 06/06/18 06/06/18 Range/Units 19:20 19:20 19:20 WBC 6.1 (3.8-10.6) k/uL RBC 3.95 L (4.30-5.90) m/uL Hgb 12.6 L (13.0-17.5) gm/dL Hct 36.9 L (39.0-53.0) % MCV 93.2 (80.0-100.0) fL MCH 31.9 (25.0-35.0) pg MCHC 34.2 (31.0-37.0) g/dL RDW 16.2 H (11.5-15.5) % Plt Count 148 L (150-450) k/uL Neutrophils % 74 % Lymphocytes % 19 % Monocytes % 5 % Eosinophils % 1 % Basophils % 0 % Neutrophils # 4.5 (1.3-7.7) k/uL Lymphocytes # 1.1 (1.0-4.8) k/uL Monocytes # 0.3 (0-1.0) k/uL Eosinophils # 0.0 (0-0.7) k/uL Basophils # 0.0 (0-0.2) k/uL Anisocytosis Slight PT (9.0-12.0) sec INR (<1.2) APTT (22.0-30.0) sec Sodium 138 (137-145) mmol/L Potassium 3.7 (3.5-5.1) mmol/L Chloride 97 L (98-107) mmol/L Carbon Dioxide 29 (22-30) mmol/L Anion Gap 12 mmol/L BUN 13 (9-20) mg/dL Creatinine 0.61 L (0.66-1.25) mg/dL Est GFR (CKD-EPI)AfAm >90 (>60 ml/min/1.73 sqM) Est GFR (CKD-EPI)NonAf >90 (>60 ml/min/1.73 sqM) Glucose 122 H (74-99) mg/dL Calcium 9.1 (8.4-10.2) mg/dL Total Bilirubin 1.7 H (0.2-1.3) mg/dL AST 173 H (17-59) U/L ALT 97 H (21-72) U/L Alkaline Phosphatase 139 H (38-126) U/L Total Creatine Kinase 160 (55-170) U/L CK-MB (CK-2) 1.0 (0.0-2.4) ng/mL CK-MB (CK-2) Rel Index 0.6 Troponin I <0.012 (0.000-0.034) ng/mL Total Protein 8.0 (6.3-8.2) g/dL Albumin 4.1 (3.5-5.0) g/dL Amylase 82 (30-110) U/L Lipase 183 (23-300) U/L Urine Color Urine Appearance (Clear) Urine pH (5.0-8.0) Ur Specific [place] (1.001-1.035) Urine Protein (Negative) Urine Glucose (UA) (Negative) Urine Ketones (Negative) Urine Blood (Negative) Urine Nitrite (Negative) Urine Bilirubin (Negative) Urine Urobilinogen (<2.0) mg/dL Ur Leukocyte Esterase (Negative) 06/06/18 06/06/18 Range/Units 19:20 20:25 WBC (3.8-10.6) k/uL RBC (4.30-5.90) m/uL Hgb (13.0-17.5) gm/dL Hct (39.0-53.0) % MCV (80.0-100.0) fL MCH (25.0-35.0) pg MCHC (31.0-37.0) g/dL RDW (11.5-15.5) % Plt Count (150-450) k/uL Neutrophils % % Lymphocytes % % Monocytes % % Eosinophils % % Basophils % % Neutrophils # (1.3-7.7) k/uL Lymphocytes # (1.0-4.8) k/uL Monocytes # (0-1.0) k/uL Eosinophils # (0-0.7) k/uL Basophils # (0-0.2) k/uL Anisocytosis PT 12.4 H (9.0-12.0) sec INR 1.2 H (<1.2) APTT 25.4 (22.0-30.0) sec Sodium (137-145) mmol/L Potassium (3.5-5.1) mmol/L Chloride (98-107) mmol/L Carbon Dioxide (22-30) mmol/L Anion Gap mmol/L BUN (9-20) mg/dL Creatinine (0.66-1.25) mg/dL Est GFR (CKD-EPI)AfAm (>60 ml/min/1.73 sqM) Est GFR (CKD-EPI)NonAf (>60 ml/min/1.73 sqM) Glucose (74-99) mg/dL Calcium (8.4-10.2) mg/dL Total Bilirubin (0.2-1.3) mg/dL AST (17-59) U/L ALT (21-72) U/L Alkaline Phosphatase (38-126) U/L Total Creatine Kinase (55-170) U/L CK-MB (CK-2) (0.0-2.4) ng/mL CK-MB (CK-2) Rel Index Troponin I (0.000-0.034) ng/mL Total Protein (6.3-8.2) g/dL Albumin (3.5-5.0) g/dL Amylase (30-110) U/L Lipase (23-300) U/L Urine Color Light Yellow Urine Appearance Clear (Clear) Urine pH 7.5 (5.0-8.0) Ur Specific [place] 1.003 (1.001-1.035) Urine Protein Negative (Negative) Urine Glucose (UA) Negative (Negative) Urine Ketones 1+ H (Negative) Urine Blood Negative (Negative) Urine Nitrite Negative (Negative) Urine Bilirubin Negative (Negative) Urine Urobilinogen <2.0 (<2.0) mg/dL Ur Leukocyte Esterase Negative (Negative) - Radiology Data Radiology results: report reviewed, image reviewed Two-view x-ray of the abdomen obtained. Report was reviewed in its entirety. Impression by Dr. Elpidio Fowler shows negative examination. Disposition Clinical Impression: Chest pain, Abdominal pain Disposition: HOME SELF-CARE Condition: Good Instructions (If sedation given, give patient instructions): Chest Pain (ED), Abdominal Pain (ED) Additional Instructions: Increase fluids. Follow up with her primary care physician for recheck in 1-2 days. Return immediately for any new, worsening, or concerning symptoms Is patient prescribed a controlled substance at d/c from ED?: No Referrals: Yoon Phillips DO [Primary Care Provider] - 1-2 days Time of Disposition: 22:51
[2018-06-06 20:17] LABS: Anisocytosis Slight; Basophils % (A) 0 %; Eosinophils % (A) 1 %; HCT 36.9 % (39.0-53.0); HGB 12.6 gm/dL (13.0-17.5); Lymphocytes # (A) 1.1 k/uL (1.0-4.8); Lymphocytes % (A) 19 %; MCH 31.9 pg (25.0-35.0); MCHC 34.2 g/dL (31.0-37.0); MCV 93.2 fL (80.0-100.0); Monocytes # (A) 0.3 k/uL (0-1.0); Monocytes % (A) 5 %; Neutrophils # (A) 4.5 k/uL (1.3-7.7); Neutrophils % (A) 74 %; Platelet Count 148 k/uL (150-450); RBC 3.95 m/uL (4.30-5.90); RDW 16.2 % (11.5-15.5); WBC 6.1 k/uL (3.8-10.6)
[2018-06-06 20:22] LABS: INR 1.2 (<1.2); Partial Thromboplastin Time 25.4 sec (22.0-30.0); Prothrombin Time 12.4 sec (9.0-12.0)
[2018-06-06 20:23] LABS: ALT 97 U/L (21-72); AST 173 U/L (17-59); Albumin 4.1 g/dL (3.5-5.0); Alkaline Phosphatase 139 U/L (38-126); Amylase 82 U/L (30-110); Anion Gap 12 mmol/L; Blood Urea Nitrogen 13 mg/dL (9-20); Calcium 9.1 mg/dL (8.4-10.2); Carbon Dioxide 29 mmol/L (22-30); Chloride 97 mmol/L (98-107); Glucose 122 mg/dL (74-99); Lipase 183 U/L (23-300); Potassium 3.7 mmol/L (3.5-5.1); Sodium 138 mmol/L (137-145); Total Bilirubin 1.7 mg/dL (0.2-1.3)
[2018-06-06 20:28] LABS: Creatine Kinase 160 U/L (55-170)
[2018-06-06 20:42] LABS: Troponin I <0.012 ng/mL (0.000-0.034)
[2018-06-06 20:45] LABS: Appearance,Urine Clear (Clear); Bilirubin,Urine Negative (Negative); Blood,Urine Negative (Negative); Color,Urine Light Yellow; Glucose,Urine (UA) Negative (Negative); Ketones,Urine 1+ (Negative); Leukocyte Esterase,Urine Negative (Negative); Nitrite,Urine Negative (Negative); PH, Urine 7.5 (5.0-8.0); Protein,Urine Negative (Negative); Specific Gravity,Urine 1.003 (1.001-1.035); Urobilinogen,Urine <2.0 mg/dL (<2.0)
--- NOTE | 2018-06-06 21:23 | XR ---
EXAMINATION TYPE: XR KUB DATE OF EXAM: 06/06/2018 COMPARISON: 11/21/15 HISTORY: Pain TECHNIQUE: 2 upright views FINDINGS: There is no pneumoperitoneum. There is no evident bowel obstruction or pneumatosis. No acut e soft tissue or skeletal finding is evident. IMPRESSION: Negative examination.
[2018-06-06 23:15] VITALS: BP 168/80; PULSE 105; TEMP 98.4
== END 2018-06-06 23:15 | disposition home or self-care (01) ==
LOC: EC 18:41
DX: R07.9 Chest pain, unspecified (principal); R10.9 Unspecified abdominal pain; R51 Headache; R19.7 Diarrhea, unspecified; R11.10 Vomiting, unspecified; I48.91 Unspecified atrial fibrillation; J44.9 Chronic obstructive pulmonary disease, unspecified; E11.9 Type 2 diabetes mellitus without complications; K21.9 Gastro-esophageal reflux disease without esophagitis; Z86.73 Personal history of transient ischemic attack (TIA), and cerebral infarction without residual deficits; Z90.49 Acquired absence of other specified parts of digestive tract; Z85.46 Personal history of malignant neoplasm of prostate; Z86.14 Personal history of Methicillin resistant Staphylococcus aureus infection; Z82.5 Family history of asthma and other chronic lower respiratory diseases; Z79.84 Long term (current) use of oral hypoglycemic drugs; Z79.899 Other long term (current) drug therapy; Z91.048 Other nonmedicinal substance allergy status; Z91.012 Allergy to eggs; Z88.8 Allergy status to other drugs, medicaments and biological substances; Z91.018 Allergy to other foods; Z72.89 Other problems related to lifestyle
CPT/HCPCS: 36415; 93005; 80053; 82150; 82550; 82553; 83690; 84484; 85025; 85610; 85730; 81003; 74018; 99284; 96374; 96375; 96361; J1200; J2405

== ENCOUNTER 2018-06-21 10:09 | Emergency (ER) | payer OTHER ==
[2018-06-21 10:14] VITALS: TEMP 98.2
[2018-06-21] MEDS ORDERED: LORazepam 2 MG/ML INJ IV STA (10:26)
[2018-06-21] MEDS ORDERED: ONDANSETRON 4 MG/2 ML VIAL IVP STA (10:26)
--- NOTE | 2018-06-21 10:29 | ED ---
Male Urogenital HPI - General Chief complaint: Urogenital Stated complaint: poss UTI Time Seen by Provider: 06/21/18 10:18 Source: patient, EMS, RN notes reviewed, old records reviewed Mode of arrival: EMS Limitations: no limitations - History of Present Illness Initial comments: Patient is 63-year-old male well-known to the emergency department for alcohol use and abdominal pain. He presents today with complaints of dysuria, and rectal pain. Patient states symptoms started last night. He denies any concern for STDs. Patient states his left sexually active in 2007. Patient reports he's had no known history of prostate issues. Patient states that he has noticed some bulging in his rectum when he will have a bowel movement. Patient complains of dark foul-smelling urine. Patient states that he last drink 4 days ago. Patient states that he feels like he started to go through withdrawals. Patient states that he has had no known fevers or chills.Patient denies any recent fever, chills, shortness of breath, chest pain, back pain, numbness or tingling, dysuria or hematuria, constipation or diarrhea, headaches or visual changes, or any other current symptoms - Related Data Home Medications Medication Instructions Recorded Confirmed Ferrous Sulfate [Iron (65 MG 325 mg PO DAILY 04/24/18 06/21/18 Elemental)] Folic Acid 1 mg PO DAILY 04/24/18 06/21/18 Magnesium Oxide [Mag-Ox] 400 mg PO HS 04/24/18 06/21/18 Pantoprazole [Protonix] 40 mg PO BID 04/24/18 06/21/18 Thiamine Mononitrate (Vit B1) 100 mg PO DAILY 06/21/18 06/21/18 [Vitamin B-1] Previous Rx's Medication Instructions Recorded Aspirin [Children's Aspirin] 81 mg PO DAILY #30 tab.chew 03/26/18 cloNIDine HCL [Catapres] 0.1 mg PO BID #60 tab 03/26/18 amLODIPine [Norvasc] 5 mg PO DAILY #30 tab 05/30/18 Allergies Allergy/AdvReac Type Severity Reaction Status Date / Time adhesive tape Allergy Rash/Hives Verified 06/21/18 10:51 latex Allergy Unknown Verified 06/21/18 10:51 egg AdvReac Nausea & Verified 06/21/18 10:51 Vomiting lisinopril AdvReac EYES Verified 06/21/18 10:51 BURN&ITCH/WEAKNESS tomato AdvReac Nausea & Verified 06/21/18 10:51 Vomiting & Diarrhea Review of Systems ROS Statement: Those systems with pertinent positive or pertinent negative responses have been documented in the HPI. ROS Other: All systems not noted in ROS Statement are negative. Past Medical History Past Medical History: Atrial Fibrillation, Cancer, Chest Pain / Angina, COPD, CVA/TIA, Diabetes Mellitus, GERD/Reflux, GI Bleed, Hyperlipidemia, Hypertension , Pneumonia, Prostate Disorder, Pulmonary Embolus (PE) Additional Past Medical History / Comment(s): tachycardia/palpitations likely d/ t alcohol withdrawal. hx of Alcoholism, chronic alcoholic cirrhosis with portal hypertension and previous history of upper and lower GI bleeding, esophageal varices, previous history of childhood seizure which he outgrew not taking any antiepileptic medication-possibly had recent seizure-2018 thought d/ t alcohol withdrawal, pulmonary embolism x 2 R lung, TIA, diverticulosis, chronic lower bilateral extremity ankle edema if he walks alot, previous history of septicemia, cervical disc disease with chronic back pain with r sided sciatica, degenerative arthritis involving the lower back, tinnitus, vitamin D deficiency, iron anemia, chronic thrombocytopenia. pt had radiation th04/28 for prostate cancer History of Any Multi-Drug Resistant Organisms: MRSA Past Surgical History: Appendectomy, Cholecystectomy Additional Past Surgical History / Comment(s): EGDs/esophageal varicies bandings , colonoscopies. Past Anesthesia/Blood Transfusion Reactions: No Reported Reaction Additional Past Anesthesia/Blood Transfusion Reaction / Comment(s): after appendix removed sob Past Psychological History: Anxiety, Depression Smoking Status: Never smoker Past Alcohol Use History: Abuse, Daily Past Drug Use History: None Reported - Past Family History Mother Family Medical History: COPD, CVA/TIA, Dementia Additional Family Medical History / Comment(s): from a stroke Father Family Medical History: Pneumonia Additional Family Medical History / Comment(s): Father of pneumonia when he was close to 80 yrs old. General Exam - General Exam Comments Initial Comments: 63-year-old male. Alert and oriented. No distress. Limitations: no limitations General appearance: alert, in no apparent distress Head exam: Present: atraumatic, normocephalic, normal inspection Eye exam: Present: normal appearance, PERRL, EOMI. Absent: scleral icterus, conjunctival injection, periorbital swelling ENT exam: Present: normal exam, mucous membranes moist Neck exam: Present: normal inspection. Absent: tenderness, meningismus, lymphadenopathy Respiratory exam: Present: normal lung sounds bilaterally. Absent: respiratory distress, wheezes, rales, rhonchi, stridor Cardiovascular Exam: Present: regular rate, normal rhythm, normal heart sounds. Absent: systolic murmur, diastolic murmur, rubs, gallop, clicks GI/Abdominal exam: Present: soft, normal bowel sounds. Absent: distended, tenderness, guarding, rebound, rigid Rectal exam: Present: normal rectal tone, other (Evidence of condyloma accumilata ). Absent: normal inspection, decreased rectal tone, heme (-) stool , heme (+) stool, hemorrhoids Extremities exam: Present: normal inspection, full ROM, normal capillary refill. Absent: tenderness, pedal edema, joint swelling, calf tenderness Back exam: Present: normal inspection Neurological exam: Present: alert, oriented X3, CN II-XII intact Psychiatric exam: Present: normal affect, normal mood Skin exam: Present: warm, dry, intact, normal color. Absent: rash Course Vital Signs 06/21/18 06/21/18 06/21/18 10:11 10:45 11:58 Temperature 98.2 F Pulse Rate 123 H 133 H 130 H Respiratory 20 18 18 Rate Blood Pressure 165/105 147/91 139/84 O2 Sat by Pulse 95 100 95 Oximetry Medical Decision Making - Medical Decision Making Patient is a 63-year-old male with history of alcohol abuse presents emergency Department today with complaints of dysuria and pain with bowel movement. At this time Patient has evidence of anal warts. Informed Patient that he needs to follow-up and will discharge the Patient with a prescription of a imiquimoid I discussed with Patient that the rest of her lab work including urinalysis is negative. Rectal exam shows no evidence of hemorrhoids. Prostate was nontender. At this time I discussed that we will culture the urine. I discussed strict return parameters. He also did lie when he stated that he drank 4 days ago. His alcohol level was 131. I discussed with the Patient that he needs to discontinue drinking. It is currently sober at time of discharge. - Lab Data Result diagrams: 06/21/18 12:00 06/21/18 10:38 Lab Results 06/21/18 06/21/18 06/21/18 Range/Units 10:38 10:38 12:00 WBC 6.1 (3.8-10.6) k/uL RBC 4.33 (4.30-5.90) m/uL Hgb 12.9 L (13.0-17.5) gm/dL Hct 41.2 (39.0-53.0) % MCV 95.3 (80.0-100.0) fL MCH 29.9 (25.0-35.0) pg MCHC 31.4 (31.0-37.0) g/dL RDW 16.8 H (11.5-15.5) % Plt Count 190 (150-450) k/uL Neutrophils % 61 % Lymphocytes % 30 % Monocytes % 7 % Eosinophils % 1 % Basophils % 1 % Neutrophils # 3.7 (1.3-7.7) k/uL Lymphocytes # 1.9 (1.0-4.8) k/uL Monocytes # 0.4 (0-1.0) k/uL Eosinophils # 0.0 (0-0.7) k/uL Basophils # 0.0 (0-0.2) k/uL Anisocytosis Slight Sodium 144 (137-145) mmol/L Potassium 4.5 (3.5-5.1) mmol/L Chloride 103 (98-107) mmol/L Carbon Dioxide 26 (22-30) mmol/L Anion Gap 15 mmol/L BUN 10 (9-20) mg/dL Creatinine 0.90 (0.66-1.25) mg/dL Est GFR (CKD-EPI)AfAm >90 (>60 ml/min/1.73 sqM) Est GFR (CKD-EPI)NonAf >90 (>60 ml/min/1.73 sqM) Glucose 123 H (74-99) mg/dL Calcium 9.2 (8.4-10.2) mg/dL Total Bilirubin 0.8 (0.2-1.3) mg/dL AST 101 H (17-59) U/L ALT 59 (21-72) U/L Alkaline Phosphatase 176 H (38-126) U/L Total Protein 8.5 H (6.3-8.2) g/dL Albumin 4.2 (3.5-5.0) g/dL Urine Color Yellow Urine Appearance Clear (Clear) Urine pH 7.0 (5.0-8.0) Ur Specific [place] 1.018 (1.001-1.035) Urine Protein 1+ H (Negative) Urine Glucose (UA) Negative (Negative) Urine Ketones Negative (Negative) Urine Blood Negative (Negative) Urine Nitrite Negative (Negative) Urine Bilirubin Negative (Negative) Urine Urobilinogen 2.0 (<2.0) mg/dL Ur Leukocyte Esterase Negative (Negative) Urine RBC 1 (0-5) /hpf Urine WBC 1 (0-5) /hpf Hyaline Casts 3 H (0-2) /lpf Urine Mucus Rare H (None) /hpf Stool Occult Blood (Negative) Serum Alcohol 131 mg/dL 06/21/18 Range/Units 12:00 WBC (3.8-10.6) k/uL RBC (4.30-5.90) m/uL Hgb (13.0-17.5) gm/dL Hct (39.0-53.0) % MCV (80.0-100.0) fL MCH (25.0-35.0) pg MCHC (31.0-37.0) g/dL RDW (11.5-15.5) % Plt Count (150-450) k/uL Neutrophils % % Lymphocytes % % Monocytes % % Eosinophils % % Basophils % % Neutrophils # (1.3-7.7) k/uL Lymphocytes # (1.0-4.8) k/uL Monocytes # (0-1.0) k/uL Eosinophils # (0-0.7) k/uL Basophils # (0-0.2) k/uL Anisocytosis Sodium (137-145) mmol/L Potassium (3.5-5.1) mmol/L Chloride (98-107) mmol/L Carbon Dioxide (22-30) mmol/L Anion Gap mmol/L BUN (9-20) mg/dL Creatinine (0.66-1.25) mg/dL Est GFR (CKD-EPI)AfAm (>60 ml/min/1.73 sqM) Est GFR (CKD-EPI)NonAf (>60 ml/min/1.73 sqM) Glucose (74-99) mg/dL Calcium (8.4-10.2) mg/dL Total Bilirubin (0.2-1.3) mg/dL AST (17-59) U/L ALT (21-72) U/L Alkaline Phosphatase (38-126) U/L Total Protein (6.3-8.2) g/dL Albumin (3.5-5.0) g/dL Urine Color Urine Appearance (Clear) Urine pH (5.0-8.0) Ur Specific [place] (1.001-1.035) Urine Protein (Negative) Urine Glucose (UA) (Negative) Urine Ketones (Negative) Urine Blood (Negative) Urine Nitrite (Negative) Urine Bilirubin (Negative) Urine Urobilinogen (<2.0) mg/dL Ur Leukocyte Esterase (Negative) Urine RBC (0-5) /hpf Urine WBC (0-5) /hpf Hyaline Casts (0-2) /lpf Urine Mucus (None) /hpf Stool Occult Blood Negative (Negative) Serum Alcohol mg/dL Disposition Clinical Impression: Anal wart, Alcohol abuse, History of dysuria Disposition: HOME SELF-CARE Condition: Good Instructions (If sedation given, give patient instructions): Genital Warts (ED) Additional Instructions: Patient has a follow-up with primary care physician. Return to the emergency department if any alarming signs or symptoms occur. Is patient prescribed a controlled substance at d/c from ED?: No Referrals: Yoon Phillips DO [Primary Care Provider] - 1-2 days Time of Disposition: 13:25
[2018-06-21] MEDS ORDERED: SODIUM CHLORIDE 0.9% 1,000 ML IV ONE ×2 (10:46→11:58)
[2018-06-21 10:48] VITALS: RESP 18
[2018-06-21] MEDS ORDERED: amLODIPine 5 MG TAB PO STA (11:20)
[2018-06-21 11:21] LABS: ALT 59 U/L (21-72); AST 101 U/L (17-59); Albumin 4.2 g/dL (3.5-5.0); Alkaline Phosphatase 176 U/L (38-126); Anion Gap 15 mmol/L; Blood Urea Nitrogen 10 mg/dL (9-20); Calcium 9.2 mg/dL (8.4-10.2); Carbon Dioxide 26 mmol/L (22-30); Chloride 103 mmol/L (98-107); Glucose 123 mg/dL (74-99); Potassium 4.5 mmol/L (3.5-5.1); Sodium 144 mmol/L (137-145); Total Bilirubin 0.8 mg/dL (0.2-1.3); Total Protein 8.5 g/dL (6.3-8.2)
[2018-06-21 11:30] LABS: Alcohol 131 mg/dL
[2018-06-21 11:42] LABS: Appearance,Urine Clear (Clear); Bilirubin,Urine Negative (Negative); Blood,Urine Negative (Negative); Color,Urine Yellow; Glucose,Urine (UA) Negative (Negative); Hyaline Casts,Urine 3 /lpf (0-2); Ketones,Urine Negative (Negative); Leukocyte Esterase,Urine Negative (Negative); Mucus,Urine Rare /hpf; Nitrite,Urine Negative (Negative); Protein,Urine 1+ (Negative); RBC,Urine 1 /hpf (0-5); Specific Gravity,Urine 1.018 (1.001-1.035)
[2018-06-21 12:53] LABS: Anisocytosis Slight; Basophils % (A) 1 %; Eosinophils % (A) 1 %; HCT 41.2 % (39.0-53.0); HGB 12.9 gm/dL (13.0-17.5); Lymphocytes # (A) 1.9 k/uL (1.0-4.8); Lymphocytes % (A) 30 %; MCH 29.9 pg (25.0-35.0); MCHC 31.4 g/dL (31.0-37.0); MCV 95.3 fL (80.0-100.0); Monocytes # (A) 0.4 k/uL (0-1.0); Monocytes % (A) 7 %; Neutrophils # (A) 3.7 k/uL (1.3-7.7); Neutrophils % (A) 61 %; Platelet Count 190 k/uL (150-450); RBC 4.33 m/uL (4.30-5.90); RDW 16.8 % (11.5-15.5); WBC 6.1 k/uL (3.8-10.6)
[2018-06-21 13:37] VITALS: BP 134/88; PULSE 109
== END 2018-06-21 13:56 | disposition home or self-care (01) ==
LOC: EC 10:09
DX: A63.0 Anogenital (venereal) warts (principal); F10.10 Alcohol abuse, uncomplicated; R30.0 Dysuria; R10.9 Unspecified abdominal pain; K21.9 Gastro-esophageal reflux disease without esophagitis; D50.9 Iron deficiency anemia, unspecified; Z86.73 Personal history of transient ischemic attack (TIA), and cerebral infarction without residual deficits; Z87.19 Personal history of other diseases of the digestive system; Z85.46 Personal history of malignant neoplasm of prostate; Z86.14 Personal history of Methicillin resistant Staphylococcus aureus infection; Z90.49 Acquired absence of other specified parts of digestive tract; Z79.899 Other long term (current) drug therapy; Z91.048 Other nonmedicinal substance allergy status; Z91.040 Latex allergy status; Z91.012 Allergy to eggs; Z88.8 Allergy status to other drugs, medicaments and biological substances; Z91.018 Allergy to other foods; Y90.6 Blood alcohol level of 120-199 mg/100 ml
CPT/HCPCS: 99284; 96374; 96375; 96361 ×2; 36415; 80053; 85025; 82272; 81001; G0480; J2060; J2405; 80320

== ENCOUNTER → 2018-08-16 | Outpatient (CLI) | payer OTHER ==
[2018-08-16 13:55] LABS: HCT 43.9 % (39.0-53.0); HGB 14.4 gm/dL (13.0-17.5); MCH 31.4 pg (25.0-35.0); MCHC 32.9 g/dL (31.0-37.0); MCV 95.7 fL (80.0-100.0); Mean Platelet Volume 7.4; Platelet Count 200 k/uL (150-450); RBC 4.59 m/uL (4.30-5.90); RDW 14.9 % (11.5-15.5); WBC 5.7 k/uL (3.8-10.6)
[2018-08-16 13:59] LABS: ALT 43 U/L (21-72); AST 56 U/L (17-59); Albumin 4.3 g/dL (3.5-5.0); Alkaline Phosphatase 138 U/L (38-126); Anion Gap 11 mmol/L; Blood Urea Nitrogen 12 mg/dL (9-20); Calcium 10.1 mg/dL (8.4-10.2); Carbon Dioxide 25 mmol/L (22-30); Chloride 103 mmol/L (98-107); Glucose 96 mg/dL (74-99); Potassium 3.9 mmol/L (3.5-5.1); Sodium 139 mmol/L (137-145); Total Protein 8.5 g/dL (6.3-8.2)
--- NOTE | 2018-08-17 03:46 | CT ---
EXAMINATION TYPE: CT abdomen pelvis w con DATE OF EXAM: 08/16/2018 COMPARISON: 12/22/2017 HISTORY: 63-year-old male Change in bowel habits, possible c-diff TECHNIQUE: Contiguous axial scanning of the abdomen and pelvis following administration of 100 ml Iso loren 300 IV contrast. Delayed images through the kidneys and coronal/sagittal reconstructions perform ed. CT DLP: 1036 mGycm Automated exposure control for dose reduction was used. FINDINGS: Heart normal size without pericardial effusion. Some fine interstitial changes at the left base are unchanged. No pleural effusion. Ectasia of the lower descending thoracic aorta at 2.8 cm. Scattered mild atherosclerotic calcificatio ns within the abdominal aorta and borderline ectasia of the left common iliac artery at 1.5 cm. Subtle contour nodularity of the liver. Stable subcentimeter hypodensity inferior right liver lobe, a xial image 22, likely tiny cyst. Cholecystectomy clips are present. The portal venous system is patent but the main portal vein is mildly dilated at 1.7 cm. In addition, there seems to be prominent collateral vessels in the region of the gastrohepatic ligament and dista l esophagus. Adrenal glands and pancreas appear within normal limits. Extrarenal pelvis involving the right kidney. Left kidney has a tiny subcentimeter cortical hypodensi ty medial upper pole, stable, probable tiny cortical cyst. There is a 1.2 cm stable arterial enhancing lesion anterior spleen, suspected hemangioma. Tiny calcif ied granuloma is also noted with a posterior splenule. No dilated small bowel, free fluid, or free air. No mesenteric or retroperitoneal lymphadenopathy cecilia ntified. Questionable mild fold thickening of left abdominal jejunal loops, refer to axial image 37. Oral contrast has progressed to the splenic flexure. Surgical material in the right lower quadrant mei ggests prior appendectomy. There is left hemicolonic diverticulosis. Pericolonic fat stranding along the mid to lower descending colon is present, for example, axial images 50 through 54. Mild circumferential wall thickening of the distal sigmoid, axial image 63 probably relates to nondis tention. Prominent distention of the urinary bladder measuring up to 14.6 cm craniocaudal. Prostate gland mild ly enlarged at 4.7 cm wide. No abnormal fluid collection in the pelvis or pelvic lymphadenopathy. Bones: Mild degenerative changes at the hips and SI joints. Facet arthropathy lower lumbar spine. IMPRESSION: 1. LEFT-SIDED COLONIC DIVERTICULOSIS. THERE IS MILD PERICOLONIC FAT STRANDING ALONG THE MID TO LOWER DESCENDING COLON. FINDINGS COULD REPRESENT MILD ACUTE DIVERTICULITIS OR PROMINENT PERICOLONIC VESSELS . 2. SUGGESTION OF FOLD THICKENING OF LEFT-SIDED JEJUNAL LOOPS. CORRELATE FOR A MILD NONSPECIFIC ENTERI TIS. 3. SLIGHT CONTOUR NODULARITY OF THE LIVER SUGGESTS UNDERLYING CIRRHOSIS. COLLATERALS IN THE UPPER ABD OMEN, DILATED MAIN PORTAL VEIN, AND SUGGESTION OF LOWER GASTROESOPHAGEAL VARICES CAN BE SEEN WITH POR GISELLE VENOUS HYPERTENSION. 4. PROMINENT DISTENTION OF THE URINARY BLADDER. PLEASE ENSURE THAT THIS REPRESENTS VOLUNTARY RETENTIO N. ULTRASOUND WITH VOIDING TO EXCLUDE URINARY RETENTION IF INDICATED.
== END ==
LOC: RADCTMAIN 12:36
PROVIDERS: ATTEND Family Medicine
DX: K57.30 Diverticulosis of large intestine without perforation or abscess without bleeding (principal); N32.89 Other specified disorders of bladder; Z87.19 Personal history of other diseases of the digestive system; Z88.8 Allergy status to other drugs, medicaments and biological substances
CPT/HCPCS: 80053; 85027; 74177; 36415; Q9967

== ENCOUNTER 2018-08-23 01:43 | Emergency (ER) | payer OTHER ==
[2018-08-23] MEDS ORDERED: LORazepam 2 MG/ML INJ IV STA (03:53)
[2018-08-23] MEDS ORDERED: ONDANSETRON 4 MG/2 ML VIAL IVP STA (03:53)
[2018-08-23] MEDS ORDERED: SODIUM CHLORIDE 0.9% 1,000 ML IV ONE (03:53)
--- NOTE | 2018-08-23 04:07 | ED ---
Nausea/Vomiting/Diarrhea HPI - General Chief complaint: Nausea/Vomiting/Diarrhea Stated complaint: Vomiting blood Time Seen by Provider: 08/23/18 03:19 Source: patient, EMS Mode of arrival: EMS Limitations: no limitations - History of Present Illness MD complaint: nausea, vomiting, abdominal pain -: hour(s) Description of Vomiting: food contents Associated Abdominal Pain: Yes Location: LUQ, RUQ Radiation: none Severity: moderate Quality: aching Consistency: constant Improves with: none Worsens with: none Associated Symptoms: nausea/vomiting - Related Data Home Medications Medication Instructions Recorded Confirmed Ferrous Sulfate [Iron (65 MG 325 mg PO DAILY 04/24/18 08/23/18 Elemental)] Folic Acid 1 mg PO DAILY 04/24/18 08/23/18 Magnesium Oxide [Mag-Ox] 400 mg PO HS 04/24/18 08/23/18 Thiamine Mononitrate (Vit B1) 100 mg PO DAILY 06/21/18 08/23/18 [Vitamin B-1] Famotidine [Pepcid] 20 mg PO DAILY 08/23/18 08/23/18 Vancomycin HCl 250 mg PO QID 08/23/18 08/23/18 metroNIDAZOLE [Flagyl] 250 mg PO TID 08/23/18 08/23/18 Previous Rx's Medication Instructions Recorded Aspirin [Children's Aspirin] 81 mg PO DAILY #30 tab.chew 03/26/18 cloNIDine HCL [Catapres] 0.1 mg PO BID #60 tab 03/26/18 amLODIPine [Norvasc] 5 mg PO DAILY #30 tab 05/30/18 Ondansetron Odt [Zofran ODT] 4 mg PO Q8HR PRN #10 tab 08/23/18 Allergies Allergy/AdvReac Type Severity Reaction Status Date / Time adhesive tape Allergy Rash/Hives Verified 08/23/18 07:47 latex Allergy Unknown Verified 08/23/18 07:47 egg AdvReac Nausea & Verified 08/23/18 07:47 Vomiting lisinopril AdvReac EYES Verified 08/23/18 07:47 BURN&ITCH/WEAKNESS tomato AdvReac Nausea & Verified 08/23/18 07:47 Vomiting & Diarrhea Review of Systems ROS Statement: Those systems with pertinent positive or pertinent negative responses have been documented in the HPI. ROS Other: All systems not noted in ROS Statement are negative. Constitutional: Denies: fever, chills, weakness Respiratory: Denies: cough, dyspnea Cardiovascular: Denies: chest pain, palpitations, edema, syncope Gastrointestinal: Reports: abdominal pain, nausea, vomiting, diarrhea. Denies: hematemesis, melena, hematochezia Genitourinary: Denies: dysuria, hematuria Musculoskeletal: Denies: back pain Skin: Denies: rash Neurological: Denies: headache, weakness Past Medical History Past Medical History: Atrial Fibrillation, Cancer, Chest Pain / Angina, COPD, CVA/TIA, Diabetes Mellitus, GERD/Reflux, GI Bleed, Hyperlipidemia, Hypertension, Pneumonia, Prostate Disorder, Pulmonary Embolus (PE) Additional Past Medical History / Comment(s): tachycardia/palpitations likely d/t alcohol withdrawal. hx of Alcoholism, chronic alcoholic cirrhosis with portal hypertension and previous history of upper and lower GI bleeding, esophageal varices, previous history of childhood seizure which he outgrew not taking any antiepileptic medication-possibly had recent seizure-2018 thought d/t alcohol withdrawal, pulmonary embolism x 2 R lung, TIA, diverticulosis, chronic lower bilateral extremity ankle edema if he walks alot, previous history of septicemia, cervical disc disease with chronic back pain with r sided sciatica, degenerative arthritis involving the lower back, tinnitus, vitamin D deficiency, iron anemia, chronic thrombocytopenia. pt had radiation 04/28 for prostate cancer History of Any Multi-Drug Resistant Organisms: MRSA Past Surgical History: Appendectomy, Cholecystectomy Additional Past Surgical History / Comment(s): EGDs/esophageal varicies bandings, colonoscopies. Past Anesthesia/Blood Transfusion Reactions: No Reported Reaction Additional Past Anesthesia/Blood Transfusion Reaction / Comment(s): after appendix removed sob Past Psychological History: Anxiety, Depression Smoking Status: Never smoker Past Alcohol Use History: Abuse, Daily Past Drug Use History: None Reported - Past Family History Mother Family Medical History: COPD, CVA/TIA, Dementia Additional Family Medical History / Comment(s): from a stroke Father Family Medical History: Pneumonia Additional Family Medical History / Comment(s): Father of pneumonia when he was close to 80 yrs old. General Exam Limitations: no limitations General appearance: alert, anxious Head exam: Present: normocephalic Eye exam: Present: normal appearance. Absent: scleral icterus, conjunctival i njection ENT exam: Present: mucous membranes dry Respiratory exam: Present: normal lung sounds bilaterally. Absent: respiratory distress, wheezes, rales, rhonchi, stridor Cardiovascular Exam: Present: normal rhythm, tachycardia (Rate approximately 104 at my exam), normal heart sounds. Absent: systolic murmur, diastolic murmur, rubs, gallop GI/Abdominal exam: Present: soft, tenderness (Mild upper abdominal tenderness without rebound or guarding), normal bowel sounds. Absent: distended, guarding, rebound, rigid, mass, pulsatile mass, hernia Extremities exam: Present: normal inspection, normal capillary refill. Absent: pedal edema, calf tenderness Back exam: Present: normal inspection. Absent: CVA tenderness (R), CVA tenderness (L) Neurological exam: Present: alert Skin exam: Present: warm, dry, intact, normal color. Absent: rash Course Vital Signs 08/23/18 08/23/18 01:55 06:47 Temperature 98.2 F Pulse Rate 115 H 102 H Respiratory 20 16 Rate Blood Pressure 146/90 129/73 O2 Sat by Pulse 96 98 Oximetry Medical Decision Making - Lab Data Result diagrams: 08/23/18 04:00 08/23/18 04:00 Lab Results 08/23/18 08/23/18 08/23/18 Range/Units 04:00 04:00 06:45 WBC 7.5 (3.8-10.6) k/uL RBC 4.16 L (4.30-5.90) m/uL Hgb 13.5 (13.0-17.5) gm/dL Hct 38.2 L (39.0-53.0) % MCV 91.9 (80.0-100.0) fL MCH 32.5 (25.0-35.0) pg MCHC 35.4 (31.0-37.0) g/dL RDW 15.9 H (11.5-15.5) % Plt Count 142 L (150-450) k/uL Neutrophils % 71 % Lymphocytes % 20 % Monocytes % 6 % Eosinophils % 1 % Basophils % 0 % Neutrophils # 5.3 (1.3-7.7) k/uL Lymphocytes # 1.5 (1.0-4.8) k/uL Monocytes # 0.5 (0-1.0) k/uL Eosinophils # 0.1 (0-0.7) k/uL Basophils # 0.0 (0-0.2) k/uL Sodium 142 (137-145) mmol/L Potassium 4.7 (3.5-5.1) mmol/L Chloride 104 (98-107) mmol/L Carbon Dioxide 21 L (22-30) mmol/L Anion Gap 17 mmol/L BUN 12 (9-20) mg/dL Creatinine 0.58 L (0.66-1.25) mg/dL Est GFR (CKD-EPI)AfAm >90 (>60 ml/min/1.73 sqM) Est GFR (CKD-EPI)NonAf >90 (>60 ml/min/1.73 sqM) Glucose 89 (74-99) mg/dL Calcium 9.2 (8.4-10.2) mg/dL Total Bilirubin 0.9 (0.2-1.3) mg/dL AST 70 H (17-59) U/L ALT 34 (21-72) U/L Alkaline Phosphatase 90 (38-126) U/L Total Protein 7.6 (6.3-8.2) g/dL Albumin 3.7 (3.5-5.0) g/dL Amylase 87 (30-110) U/L Lipase 87 (23-300) U/L Urine Color Yellow Urine Appearance Clear (Clear) Urine pH 5.5 (5.0-8.0) Ur Specific [place] 1.023 (1.001-1.035) Urine Protein 1+ H (Negative) Urine Glucose (UA) Negative (Negative) Urine Ketones 2+ H (Negative) Urine Blood Negative (Negative) Urine Nitrite Negative (Negative) Urine Bilirubin Negative (Negative) Urine Urobilinogen <2.0 (<2.0) mg/dL Ur Leukocyte Esterase Negative (Negative) Urine RBC 1 (0-5) /hpf Urine WBC 1 (0-5) /hpf Hyaline Casts 1 (0-2) /lpf Urine Mucus Rare H (None) /hpf Disposition Clinical Impression: Nausea and vomiting Disposition: HOME SELF-CARE Condition: Good Instructions (If sedation given, give patient instructions): Acute Nausea and Vomiting (ED) Prescriptions: Ondansetron Odt [Zofran ODT] 4 mg PO Q8HR PRN #10 tab PRN Reason: Nausea Is patient prescribed a controlled substance at d/c from ED?: No Referrals: Yoon Phillips DO [Primary Care Provider] - 1-2 days
[2018-08-23 04:30] LABS: Basophils % (A) 0 %; Eosinophils # (A) 0.1 k/uL (0-0.7); Eosinophils % (A) 1 %; HCT 38.2 % (39.0-53.0); HGB 13.5 gm/dL (13.0-17.5); Lymphocytes # (A) 1.5 k/uL (1.0-4.8); Lymphocytes % (A) 20 %; MCH 32.5 pg (25.0-35.0); MCHC 35.4 g/dL (31.0-37.0); MCV 91.9 fL (80.0-100.0); Mean Platelet Volume 8.3; Monocytes # (A) 0.5 k/uL (0-1.0); Monocytes % (A) 6 %; Neutrophils # (A) 5.3 k/uL (1.3-7.7); Neutrophils % (A) 71 %; Platelet Count 142 k/uL (150-450); RBC 4.16 m/uL (4.30-5.90); RDW 15.9 % (11.5-15.5); WBC 7.5 k/uL (3.8-10.6)
[2018-08-23 04:45] LABS: ALT 34 U/L (21-72); AST 70 U/L (17-59); Albumin 3.7 g/dL (3.5-5.0); Alkaline Phosphatase 90 U/L (38-126); Amylase 87 U/L (30-110); Anion Gap 17 mmol/L; Blood Urea Nitrogen 12 mg/dL (9-20); Calcium 9.2 mg/dL (8.4-10.2); Carbon Dioxide 21 mmol/L (22-30); Chloride 104 mmol/L (98-107); Glucose 89 mg/dL (74-99); Lipase 87 U/L (23-300); Sodium 142 mmol/L (137-145); Total Bilirubin 0.9 mg/dL (0.2-1.3); Total Protein 7.6 g/dL (6.3-8.2)
[2018-08-23 04:47] LABS: Potassium 4.7 mmol/L (3.5-5.1)
--- NOTE | 2018-08-23 05:20 | CT ---
EXAM: CT Abdomen and Pelvis Without Intravenous Contrast. CLINICAL HISTORY: Reason: Abdominal pain. TECHNIQUE: Axial computed tomography images of the abdomen and pelvis without intravenous contrast. CTDI is 8.3 mGy and DLP is 448 mGy-cm. This CT exam was performed using one or more of the following dose reduction techniques: automated exposure control, adjustment of the mA and/or kV according to patient size, and/or use of iterative reconstruction technique. COMPARISON: 12/22/17. FINDINGS: Lower thorax: No acute findings. ABDOMEN: Liver: Nodular contour of the liver most consistent with chronic liver disease. Within the limitation of a nonenhanced exam, no focal hepatic lesion is identified. Gallbladder and bile ducts: Gallbladder surgically absent. No ductal dilation. Pancreas: Unremarkable. No ductal dilation. Spleen: Unremarkable. No splenomegaly. Adrenals: Unremarkable. No mass. Kidneys and ureters: Unremarkable. No obstructing stones. No hydronephrosis. PELVIS: Bladder: Unremarkable. No stones. Reproductive: Unremarkable as visualized. Appendix: The appendix is surgically absent. ABDOMEN + PELVIS: Stomach and bowel: No bowel obstruction. No definite bowel wall thickening. There is colonic diverticulosis, without evidence of an acute diverticulitis.. Peritoneum: Trace free fluid is seen, largely within the left paracolic gutter. No loculated fluid collection. No free air. Lymph nodes: Unremarkable. No enlarged lymph nodes. Vasculature: Unremarkable. No aortic aneurysm. Bones: No acute fracture. IMPRESSION: No definite acute inflammatory or obstructive process is identified within the abdomen or pelvis. Hepatic cirrhosis. Status post cholecystectomy. Status post appendectomy..
[2018-08-23 07:17] LABS: Appearance,Urine Clear (Clear); Bilirubin,Urine Negative (Negative); Blood,Urine Negative (Negative); Color,Urine Yellow; Glucose,Urine (UA) Negative (Negative); Hyaline Casts,Urine 1 /lpf (0-2); Ketones,Urine 2+ (Negative); Leukocyte Esterase,Urine Negative (Negative); Mucus,Urine Rare /hpf; Nitrite,Urine Negative (Negative); PH, Urine 5.5 (5.0-8.0); Protein,Urine 1+ (Negative); RBC,Urine 1 /hpf (0-5); Specific Gravity,Urine 1.023 (1.001-1.035); Urobilinogen,Urine <2.0 mg/dL (<2.0); WBC,Urine 1 /hpf (0-5)
[2018-08-23 08:22] VITALS: BP 135/72; PULSE 69; RESP 18; TEMP 97.6
== END 2018-08-23 08:22 | disposition home or self-care (01) ==
LOC: EC 01:43
DX: R11.2 Nausea with vomiting, unspecified (principal); R00.0 Tachycardia, unspecified; R10.11 Right upper quadrant pain; R10.12 Left upper quadrant pain; K21.9 Gastro-esophageal reflux disease without esophagitis; D50.9 Iron deficiency anemia, unspecified; Z88.8 Allergy status to other drugs, medicaments and biological substances; Z91.012 Allergy to eggs; Z91.018 Allergy to other foods; Z91.040 Latex allergy status; Z91.048 Other nonmedicinal substance allergy status; Z79.899 Other long term (current) drug therapy; Z85.46 Personal history of malignant neoplasm of prostate; Z92.3 Personal history of irradiation; Z90.49 Acquired absence of other specified parts of digestive tract
CPT/HCPCS: 99285; 96374; 96375; 96361; 36415; 80053; 82150; 83690; 85025; 81001; 74176; J2060; J2405

== ENCOUNTER 2018-08-25 11:02 | Inpatient (IN) | payer OTHER ==
[2018-08-25] MEDS ORDERED: SODIUM CHLORIDE 0.9% 1,000 ML IV STA (11:18)
--- NOTE | 2018-08-25 11:43 | ED ---
General Adult HPI - General Chief complaint: Chest Pain Stated complaint: Chest pain Time Seen by Provider: 08/25/18 11:15 Source: patient, EMS Mode of arrival: EMS Limitations: no limitations - History of Present Illness Initial comments: 61-year-old male presents for evaluation of chest pain and nausea. Patient states that his chest pain has been present for the past 5 hours. He states he's had some mild nausea associated with it. Pain is lower bilateral chest. He does complain of some mild dyspnea. Mild cough. Denies fever or chills. He does admit to alcohol consumption although he states it has been several days. Denies abdominal pain. Denies lower extremity pain or swelling. - Related Data Home Medications Medication Instructions Recorded Confirmed Ferrous Sulfate [Iron (65 MG 325 mg PO DAILY 04/24/18 08/23/18 Elemental)] Magnesium Oxide [Mag-Ox] 400 mg PO HS 04/24/18 08/23/18 Thiamine Mononitrate (Vit B1) 100 mg PO DAILY 06/21/18 08/23/18 [Vitamin B-1] Famotidine [Pepcid] 20 mg PO DAILY 08/23/18 08/23/18 Vancomycin HCl 250 mg PO QID 08/23/18 08/23/18 metroNIDAZOLE [Flagyl] 250 mg PO TID 08/23/18 08/23/18 amLODIPine [Norvasc] 5 mg PO BID 08/25/18 08/25/18 Previous Rx's Medication Instructions Recorded cloNIDine HCL [Catapres] 0.1 mg PO BID #60 tab 03/26/18 Allergies Allergy/AdvReac Type Severity Reaction Status Date / Time adhesive tape Allergy Rash/Hives Verified 08/25/18 12:05 latex Allergy Unknown Verified 08/25/18 12:05 egg AdvReac Nausea & Verified 08/25/18 12:05 Vomiting lisinopril AdvReac EYES Verified 08/25/18 12:05 BURN&ITCH/WEAKNESS tomato AdvReac Nausea & Verified 08/25/18 12:05 Vomiting & Diarrhea Review of Systems ROS Statement: Those systems with pertinent positive or pertinent negative responses have been documented in the HPI. ROS Other: All systems not noted in ROS Statement are negative. Past Medical History Past Medical History: Atrial Fibrillation, Cancer, Chest Pain / Angina, COPD, CVA/TIA, Diabetes Mellitus, GERD/Reflux, GI Bleed, Hyperlipidemia, Hypertension, Pneumonia, Prostate Disorder, Pulmonary Embolus (PE) Additional Past Medical History / Comment(s): tachycardia/palpitations likely d/t alcohol withdrawal. hx of Alcoholism, chronic alcoholic cirrhosis with portal hypertension and previous history of upper and lower GI bleeding, esophageal varices, previous history of childhood seizure which he outgrew not taking any antiepileptic medication-possibly had recent seizure-2018 thought d/t alcohol withdrawal, pulmonary embolism x 2 R lung, TIA, diverticulosis, chronic lower bilateral extremity ankle edema if he walks alot, previous history of septicemia, cervical disc disease with chronic back pain with r sided sciatica, degenerative arthritis involving the lower back, tinnitus, vitamin D deficiency, iron anemia, chronic thrombocytopenia. pt had radiation 04/28 for prostate cancer History of Any Multi-Drug Resistant Organisms: MRSA Past Surgical History: Appendectomy, Cholecystectomy Additional Past Surgical History / Comment(s): EGDs/esophageal varicies bandings, colonoscopies. Past Anesthesia/Blood Transfusion Reactions: No Reported Reaction Additional Past Anesthesia/Blood Transfusion Reaction / Comment(s): after appendix removed sob Past Psychological History: Anxiety, Depression Smoking Status: Never smoker Past Alcohol Use History: Abuse, Daily Past Drug Use History: None Reported - Past Family History Mother Family Medical History: COPD, CVA/TIA, Dementia Additional Family Medical History / Comment(s): from a stroke Father Family Medical History: Pneumonia Additional Family Medical History / Comment(s): Father of pneumonia when he was close to 80 yrs old. General Exam Limitations: no limitations General appearance: alert, in no apparent distress, appears intoxicated Head exam: Present: atraumatic, normocephalic Eye exam: Present: normal appearance, PERRL ENT exam: Present: mucous membranes dry Neck exam: Present: normal inspection. Absent: tenderness, meningismus Respiratory exam: Present: normal lung sounds bilaterally. Absent: respiratory distress, wheezes, rales, rhonchi Cardiovascular Exam: Present: regular rate, normal rhythm GI/Abdominal exam: Present: soft. Absent: distended, tenderness Extremities exam: Present: normal inspection, normal capillary refill. Absent: pedal edema Neurological exam: Present: alert, oriented X3, CN II-XII intact. Absent: motor sensory deficit Psychiatric exam: Present: normal affect, normal mood Skin exam: Present: warm, dry, intact. Absent: cyanosis, diaphoretic Course Vital Signs 08/25/18 11:11 Temperature 99.5 F Pulse Rate 110 H Respiratory 18 Rate Blood Pressure 137/92 O2 Sat by Pulse 97 Oximetry EKG Findings - EKG Comments: EKG Findings:: EKG: Sinus tachycardia, no ST segment elevation or depression T- wave flattening in the inferior leads rate of 113, OK interval 166, QRS duration 72, QTC 477 Medical Decision Making - Medical Decision Making Patient with alcohol abuse, complaint of chest pain, found to have significant electrolyte abnormalities, potassium 3.1, magnesium 1.0, has normal CBC, troponin negative. Chest x-ray negative for acute coronary pulmonary disease. Patient did elect to place him emergency department. He will be observed for telemetry, WILL be repeated in the morning. Patient's kept on CIWA. Serial troponins will be obtained. A cardiac cause of chest pain at this time. Case discussed with admitting physician Dr. Finney - Lab Data Result diagrams: 08/25/18 11:25 08/25/18 11:25 Lab Results 08/25/18 08/25/18 08/25/18 Range/Units 11:25 11:25 11:25 WBC 4.7 (3.8-10.6) k/uL RBC 4.29 L (4.30-5.90) m/uL Hgb 13.5 (13.0-17.5) gm/dL Hct 40.6 (39.0-53.0) % MCV 94.6 (80.0-100.0) fL MCH 31.4 (25.0-35.0) pg MCHC 33.2 (31.0-37.0) g/dL RDW 15.6 H (11.5-15.5) % Plt Count 123 L (150-450) k/uL Neutrophils % 69 % Lymphocytes % 20 % Monocytes % 6 % Eosinophils % 2 % Basophils % 0 % Neutrophils # 3.3 (1.3-7.7) k/uL Lymphocytes # 0.9 L (1.0-4.8) k/uL Monocytes # 0.3 (0-1.0) k/uL Eosinophils # 0.1 (0-0.7) k/uL Basophils # 0.0 (0-0.2) k/uL PT 14.5 H (9.0-12.0) sec INR 1.4 H (<1.2) APTT 26.4 (22.0-30.0) sec Sodium 141 (137-145) mmol/L Potassium 3.1 L (3.5-5.1) mmol/L Chloride 103 (98-107) mmol/L Carbon Dioxide 26 (22-30) mmol/L Anion Gap 12 mmol/L BUN 5 L (9-20) mg/dL Creatinine 0.67 (0.66-1.25) mg/dL Est GFR (CKD-EPI)AfAm >90 (>60 ml/min/1.73 sqM) Est GFR (CKD-EPI)NonAf >90 (>60 ml/min/1.73 sqM) Glucose 126 H (74-99) mg/dL Plasma Lactic Acid Hitesh (0.7-2.0) mmol/L Calcium 8.2 L (8.4-10.2) mg/dL Magnesium 1.0 L (1.6-2.3) mg/dL Total Bilirubin 0.7 (0.2-1.3) mg/dL AST 105 H (17-59) U/L ALT 51 (21-72) U/L Alkaline Phosphatase 100 (38-126) U/L Troponin I (0.000-0.034) ng/mL Total Protein 7.6 (6.3-8.2) g/dL Albumin 3.9 (3.5-5.0) g/dL Lipase 134 (23-300) U/L Serum Alcohol 55 mg/dL 08/25/18 08/25/18 Range/Units 11:25 12:20 WBC (3.8-10.6) k/uL RBC (4.30-5.90) m/uL Hgb (13.0-17.5) gm/dL Hct (39.0-53.0) % MCV (80.0-100.0) fL MCH (25.0-35.0) pg MCHC (31.0-37.0) g/dL RDW (11.5-15.5) % Plt Count (150-450) k/uL Neutrophils % % Lymphocytes % % Monocytes % % Eosinophils % % Basophils % % Neutrophils # (1.3-7.7) k/uL Lymphocytes # (1.0-4.8) k/uL Monocytes # (0-1.0) k/uL Eosinophils # (0-0.7) k/uL Basophils # (0-0.2) k/uL PT (9.0-12.0) sec INR (<1.2) APTT (22.0-30.0) sec Sodium (137-145) mmol/L Potassium (3.5-5.1) mmol/L Chloride (98-107) mmol/L Carbon Dioxide (22-30) mmol/L Anion Gap mmol/L BUN (9-20) mg/dL Creatinine (0.66-1.25) mg/dL Est GFR (CKD-EPI)AfAm (>60 ml/min/1.73 sqM) Est GFR (CKD-EPI)NonAf (>60 ml/min/1.73 sqM) Glucose (74-99) mg/dL Plasma Lactic Acid Hitesh 1.8 (0.7-2.0) mmol/L Calcium (8.4-10.2) mg/dL Magnesium (1.6-2.3) mg/dL Total Bilirubin (0.2-1.3) mg/dL AST (17-59) U/L ALT (21-72) U/L Alkaline Phosphatase (38-126) U/L Troponin I <0.012 (0.000-0.034) ng/mL Total Protein (6.3-8.2) g/dL Albumin (3.5-5.0) g/dL Lipase (23-300) U/L Serum Alcohol mg/dL Disposition Clinical Impression: Atypical chest pain, Alcohol withdrawal, Hypomagnesemia, Hypokalemia Disposition: ADMITTED IP TO THIS [facility] Condition: Stable Is patient prescribed a controlled substance at d/c from ED?: No Referrals: Yoon Phillips DO [Primary Care Provider] - 1-2 days Decision to Admit Reason: Admit from EC Decision Date: 08/25/18 Decision Time: 13:49
--- NOTE | 2018-08-25 11:56 | XR ---
EXAMINATION TYPE: XR chest 2V DATE OF EXAM: 08/25/2018 COMPARISON: Prior chest x-ray 05/23/2017 HISTORY: Chest pain and nausea, tachycardia TECHNIQUE: Frontal and lateral views of the chest are obtained. FINDINGS: There is no focal air space opacity, pleural effusion, or pneumothorax seen. The cardiac silhouette size is within normal limits. The aorta is dense and possibly ectatic. Patient is rotated. There are overlying cardiac leads. There are interstitial changes present. The left lung base. The o sseous structures are intact. IMPRESSION: No acute cardiopulmonary process. There is a component of interstitial lung disease.
[2018-08-25 12:26] LABS: Basophils % (A) 0 %; Eosinophils # (A) 0.1 k/uL (0-0.7); Eosinophils % (A) 2 %; HCT 40.6 % (39.0-53.0); HGB 13.5 gm/dL (13.0-17.5); Lymphocytes # (A) 0.9 k/uL (1.0-4.8); Lymphocytes % (A) 20 %; MCH 31.4 pg (25.0-35.0); MCHC 33.2 g/dL (31.0-37.0); MCV 94.6 fL (80.0-100.0); Mean Platelet Volume 7.5; Monocytes # (A) 0.3 k/uL (0-1.0); Monocytes % (A) 6 %; Neutrophils # (A) 3.3 k/uL (1.3-7.7); Neutrophils % (A) 69 %; Platelet Count 123 k/uL (150-450); RBC 4.29 m/uL (4.30-5.90); RDW 15.6 % (11.5-15.5); WBC 4.7 k/uL (3.8-10.6)
[2018-08-25 12:33] LABS: INR 1.4 (<1.2); Partial Thromboplastin Time 26.4 sec (22.0-30.0); Prothrombin Time 14.5 sec (9.0-12.0)
[2018-08-25 12:37] LABS: ALT 51 U/L (21-72); AST 105 U/L (17-59); Albumin 3.9 g/dL (3.5-5.0); Alcohol 55 mg/dL; Alkaline Phosphatase 100 U/L (38-126); Anion Gap 12 mmol/L; Blood Urea Nitrogen 5 mg/dL (9-20); Calcium 8.2 mg/dL (8.4-10.2); Carbon Dioxide 26 mmol/L (22-30); Chloride 103 mmol/L (98-107); Glucose 126 mg/dL (74-99); Lipase 134 U/L (23-300); Potassium 3.1 mmol/L (3.5-5.1); Sodium 141 mmol/L (137-145); Total Bilirubin 0.7 mg/dL (0.2-1.3); Total Protein 7.6 g/dL (6.3-8.2)
[2018-08-25] MEDS: MAGNESIUM SULFATE-D5W PMX 1 GM in DEXTROSE/WATER 1 100ML.BAG IVPB SCH ×2 (13:04→14:32)
[2018-08-25] MEDS: POTASSIUM CHLORIDE 10 MEQ in WATER FOR INJECTION 1 100ML.BAG IVPB SCH ×4 (13:19→17:58)
[2018-08-25] MEDS ORDERED: NALOXONE 0.4 MG/ML 1 ML VIAL IV PRN (13:42)
[2018-08-25] MEDS ORDERED: PANTOPRAZOLE 40 MG/10 ML VIAL IVP STA (13:46)
[2018-08-25] MEDS ORDERED: THIAMINE 100 MG/ML 2 ML VIAL IM STA (13:47)
[2018-08-25] MEDS ORDERED: LORazepam 2 MG/ML INJ IV PRN ×2 (13:47)
[2018-08-25] MEDS ORDERED: ACETAMINOPHEN TAB 325 MG TAB PO PRN (15:17)
--- NOTE | 2018-08-25 15:21 | P.HPIM ---
History of Present Illness H&P Date: 08/25/18 This is a 63-year-old male patient who presented to the ER with complaints of chest pain. Patient does have known past medical history of EtOH, atrial fibrillation, chest pain, diabetes mellitus, GERD, GI bleed, hyperlipidemia, hypertension, pneumonia, prostate disorder and pulmonary embolism. Patient also reports that he was treated for C. diff at [facility]. Patient reports he has approximately 1 week left of his antibiotic Patient reports that he woke up this evening feeling well with that he has intermittent chest pain that radiates to his back. Patient also reports he is nauseated. Patient states his last drink was 2 days ago she drinks vodka. Chest x-ray completed showing no acute cardiopulmonary process there is component of interstitial lung disease. EKG completed showing sinus tachycardia and nonspecific ST-T wave abnormality. Initial troponin negative. Serum alcohol 55. This time patient is resting comfortably in bed. Patient is complaining of intermittent chest pain. Serial troponins have been ordered. Patient complaining of intermittent nausea. Patient denies any abdominal pain. Patient denies urinary frequency. Alcohol withdrawal protocol has been initiated. Potassium and magnesium replacement initiated. Review of Systems Please refer to HPI otherwise unremarkable Past Medical History Past Medical History: Atrial Fibrillation, Cancer, Chest Pain / Angina, COPD, CVA/TIA, Diabetes Mellitus, GERD/Reflux, GI Bleed, Hyperlipidemia, Hypertension, Pneumonia, Prostate Disorder, Pulmonary Embolus (PE) Additional Past Medical History / Comment(s): tachycardia/palpitations likely d/t alcohol withdrawal. hx of Alcoholism, chronic alcoholic cirrhosis with portal hypertension and previous history of upper and lower GI bleeding, esophageal varices, previous history of childhood seizure which he outgrew not taking any antiepileptic medication-possibly had recent seizure-2018 thought d/t alcohol withdrawal, pulmonary embolism x 2 R lung, TIA, diverticulosis, chronic lower bilateral extremity ankle edema if he walks alot, previous history of s epticemia, cervical disc disease with chronic back pain with r sided sciatica, degenerative arthritis involving the lower back, tinnitus, vitamin D deficiency, iron anemia, chronic thrombocytopenia. pt had radiation 04/28 for prostate cancer History of Any Multi-Drug Resistant Organisms: MRSA Past Surgical History: Appendectomy, Cholecystectomy Additional Past Surgical History / Comment(s): EGDs/esophageal varicies bandings, colonoscopies. Past Anesthesia/Blood Transfusion Reactions: No Reported Reaction Additional Past Anesthesia/Blood Transfusion Reaction / Comment(s): after appendix removed sob Past Psychological History: Anxiety, Depression Smoking Status: Never smoker Past Alcohol Use History: Abuse, Daily Past Drug Use History: None Reported - Past Family History Mother Family Medical History: COPD, CVA/TIA, Dementia Additional Family Medical History / Comment(s): from a stroke Father Family Medical History: Pneumonia Additional Family Medical History / Comment(s): Father of pneumonia when he was close to 80 yrs old. Medications and Allergies Home Medications and Allergies Comment(s): Head normocephalic Neck supple Lungs clear to auscultation bilaterally no wheezing or crackles Heart regular rate and rhythm S1-S2, no rub or gallop Abdomen is soft nontender nondistended positive bowel sounds no hepatosplenomegaly Extremities no edema Neuro alert and orientated to 3 Home Medications Medication Instructions Recorded Confirmed Type cloNIDine HCL [Catapres] 0.1 mg PO BID #60 tab 03/26/18 08/25/18 Rx Ferrous Sulfate [Iron (65 MG 325 mg PO DAILY 04/24/18 08/25/18 History Elemental)] Magnesium Oxide [Mag-Ox] 400 mg PO HS 04/24/18 08/25/18 History Thiamine Mononitrate (Vit B1) 100 mg PO DAILY 06/21/18 08/25/18 History [Vitamin B-1] Famotidine [Pepcid] 20 mg PO BID 08/23/18 08/25/18 History Vancomycin HCl 250 mg PO QID 08/23/18 08/25/18 History metroNIDAZOLE [Flagyl] 250 mg PO TID 08/23/18 08/25/18 History amLODIPine [Norvasc] 5 mg PO BID 08/25/18 08/25/18 History Allergies Allergy/AdvReac Type Severity Reaction Status Date / Time adhesive tape Allergy Rash/Hives Verified 08/25/18 12:05 latex Allergy Unknown Verified 08/25/18 12:05 egg AdvReac Nausea & Verified 08/25/18 12:05 Vomiting lisinopril AdvReac EYES Verified 08/25/18 12:05 BURN&ITCH/WEAKNESS tomato AdvReac Nausea & Verified 08/25/18 12:05 Vomiting & Diarrhea Physical Exam Vitals: Vital Signs Temp Pulse Resp BP Pulse Ox 08/25/18 14:00 110 H 15 148/99 97 08/25/18 13:30 111 H 15 145/92 97 08/25/18 12:00 117 H 15 135/95 97 08/25/18 11:30 112 H 17 137/92 97 08/25/18 11:15 137/92 96 08/25/18 11:11 99.5 F 110 H 18 137/92 97 Intake and Output 08/25/18 08/25/18 08/25/18 06:59 14:59 22:59 Other: Weight 74.389 kg Results CBC & Chem 7: 08/25/18 11:25 08/25/18 11:25 Labs: Abnormal Lab Results - Last 24 Hours (Table) 08/25/18 08/25/18 08/25/18 Range/Units 11:25 11:25 11:25 RBC 4.29 L (4.30-5.90) m/uL RDW 15.6 H (11.5-15.5) % Plt Count 123 L (150-450) k/uL Lymphocytes # 0.9 L (1.0-4.8) k/uL PT 14.5 H (9.0-12.0) sec INR 1.4 H (<1.2) Potassium 3.1 L (3.5-5.1) mmol/L BUN 5 L (9-20) mg/dL Glucose 126 H (74-99) mg/dL Calcium 8.2 L (8.4-10.2) mg/dL Magnesium 1.0 L (1.6-2.3) mg/dL AST 105 H (17-59) U/L Assessment and Plan Assessment: 1. Chest pain. Initial troponin negative. EKG showing sinus tachycardia, nonspecific T-wave abnormality. Chest x-ray completed showing no acute cardiopulmonary process there is prominent interstitial lung disease. Serial troponins ordered. Cardiology service consulted 2. Alcohol withdrawal occult intoxication. CIWA protocal initiated 3. Electrolyte imbalance. Potassium 3.1. Magnesium 1.0 will replace per protocol continue to monitor 4. Sinus tachycardia secondary to alcohol withdrawal 5. History of liver cirrhosis with portal hypertension 6. History of esophageal varices EGD and ligation on 10/21/2017 7. History of PE 8. History of diabetes mellitus 2. Patient is not currently on his previous metformin. Will order hemoglobin A1c initiate sliding scale coverage 9. History of paroxysmal atrial fibrillation not on anticoagulation due to history of bleeding from his esophageal varices 10. History of COPD. No exacerbation at this time 11. History of C. diff infection. Patient reports that he still has a week left of Flagyl and vancomycin. Medications will be resumed DVT prophylaxis Lovenox. GI prophylaxis Protonix Time with Patient: Greater than 30 (Greater than 60% of the total time spent in counseling and coordination of care. I performed an examination of the patient and discussed their management with the Nurse Practitioner. I have reviewed the Nurse Practitioner's notes and agree with the documented findings and plan of care)
[2018-08-25] MEDS: ONDANSETRON 4 MG/2 ML VIAL IVP PRN (16:57)
[2018-08-25] MEDS: FAMOTIDINE 20 MG TAB PO SCH (22:41)
[2018-08-25] MEDS: amLODIPine 5 MG TAB PO SCH (22:41)
[2018-08-25] MEDS: THIAMINE 100 MG TAB PO SCH (22:41)
[2018-08-25] MEDS: cloNIDine HCL 0.1 MG TAB PO SCH (22:41)
[2018-08-25] MEDS: MAGNESIUM OXIDE 400 MG TAB PO SCH (22:41)
[2018-08-26 00:54] LABS: Glucose,Whole Blood 113 mg/dL (75-99)
[2018-08-26] MEDS: metroNIDAZOLE 250 MG TABLET PO SCH ×3 (01:44→09:50)
[2018-08-26] MEDS: VANCOMYCIN ORAL SOLUTION 250 MG/5 ML BOTTLE PO SCH ×4 (01:46→14:41)
[2018-08-26] MEDS: INSULIN ASPART (NovoLOG) 100 UNIT/ML VIAL SQ SCH ×6 (02:19→21:30)
[2018-08-26] MEDS: ONDANSETRON 4 MG/2 ML VIAL IVP PRN (02:51)
[2018-08-26 06:27] LABS: Basophils % (A) 0 %; Eosinophils # (A) 0.1 k/uL (0-0.7); Eosinophils % (A) 3 %; HCT 39.6 % (39.0-53.0); HGB 13.1 gm/dL (13.0-17.5); Lymphocytes # (A) 1.2 k/uL (1.0-4.8); Lymphocytes % (A) 28 %; MCH 31.2 pg (25.0-35.0); MCV 94.6 fL (80.0-100.0); Mean Platelet Volume 7.9; Monocytes # (A) 0.3 k/uL (0-1.0); Monocytes % (A) 6 %; Neutrophils # (A) 2.6 k/uL (1.3-7.7); Neutrophils % (A) 62 %; Platelet Count 105 k/uL (150-450); RBC 4.19 m/uL (4.30-5.90); RDW 15.5 % (11.5-15.5); WBC 4.3 k/uL (3.8-10.6)
[2018-08-26 06:32] LABS: ALT 38 U/L (21-72); AST 78 U/L (17-59); Albumin 3.7 g/dL (3.5-5.0); Alkaline Phosphatase 102 U/L (38-126); Anion Gap 6 mmol/L; Blood Urea Nitrogen 6 mg/dL (9-20); Calcium 9.1 mg/dL (8.4-10.2); Carbon Dioxide 31 mmol/L (22-30); Chloride 100 mmol/L (98-107); Glucose 106 mg/dL (74-99); Magnesium 1.8 mg/dL (1.6-2.3); Potassium 3.3 mmol/L (3.5-5.1); Sodium 137 mmol/L (137-145); Total Bilirubin 1.2 mg/dL (0.2-1.3); Total Protein 7.3 g/dL (6.3-8.2)
[2018-08-26 06:41] LABS: Glucose,Whole Blood 92 mg/dL (75-99)
[2018-08-26] MEDS ORDERED: PANTOPRAZOLE 40 MG TABLET PO SCH (07:30)
[2018-08-26] MEDS: FAMOTIDINE 20 MG TAB PO SCH ×2 (08:04→21:31)
[2018-08-26] MEDS: cloNIDine HCL 0.1 MG TAB PO SCH ×2 (08:04→21:31)
[2018-08-26] MEDS: amLODIPine 5 MG TAB PO SCH ×2 (08:04→21:31)
[2018-08-26] MEDS: ENOXAPARIN 40 MG/0.4 ML SYRINGE SQ SCH (08:04)
[2018-08-26] MEDS: FERROUS SULFATE 325 MG TAB PO SCH (08:05)
[2018-08-26] MEDS: LORazepam 2 MG/ML INJ IV PRN ×2 (08:05→13:23)
[2018-08-26] MEDS ORDERED: POTASSIUM CHLORIDE ER 20 MEQ TAB.ER PO STA (10:54)
[2018-08-26] MEDS ORDERED: MAGNESIUM SULFATE-D5W PMX 1 GM in DEXTROSE/WATER 1 100ML.BAG IVPB ONE (11:00)
[2018-08-26] MEDS: MULTIVITAMINS, THERA 1 EACH TAB PO SCH (11:46)
[2018-08-26] MEDS: THIAMINE 100 MG TAB PO SCH ×2 (11:47→17:09)
--- NOTE | 2018-08-26 12:10 | P.PN ---
Subjective Progress Note Date: 08/26/18 This is a 63-year-old male patient who presented to the ER with complaints of chest pain. Patient does have known past medical history of EtOH, atrial fibrillation, chest pain, diabetes mellitus, GERD, GI bleed, hyperlipidemia, hypertension, pneumonia, prostate disorder and pulmonary embolism. Patient also reports that he was treated for C. diff at [facility]. Patient reports he has approximately 1 week left of his antibiotic Patient reports that he woke up this evening feeling well with that he has intermittent chest pain that radiates to his back. Patient also reports he is nauseated. Patient states his last drink was 2 days ago she drinks vodka. Chest x-ray completed showing no acute cardiopulmonary process there is component of interstitial lung disease. EKG completed showing sinus tachycardia and nonspecific ST-T wave abnormality. Initial troponin negative. Serum alcohol 55. This time patient is resting comfortably in bed. Patient is complaining of intermittent chest pain. Serial troponins have been ordered. Patient complaining of intermittent nausea. Patient denies any abdominal pain. Patient denies urinary frequency. Alcohol withdrawal protocol has been initiated. Potassium and magnesium replacement initiated. 08/26/2018 patient complaining of nausea today still having some intermittent chest pain episodes. No actual vomiting reported. Patient reporting last bowel movement was 2-3 days ago. Denies any burning with urination. Objective - Vital Signs Vital signs: Vital Signs Temp 98.2 F 08/26/18 08:00 Pulse 93 08/26/18 08:00 Resp 20 08/26/18 08:00 BP 110/80 08/26/18 08:00 Pulse Ox 95 08/26/18 08:00 Intake & Output 08/25/18 08/26/18 08/26/18 18:59 06:59 18:59 Intake Total 240 Output Total 700 Balance -700 240 Weight 74.389 kg 73.1 kg Intake: Oral 240 Output: Urine 700 Other: Voiding Method Toilet Toilet # Voids 1 - Exam Head normocephalic Neck supple Lungs clear to auscultation bilaterally no wheezing or crackles Heart regular rate and rhythm S1-S2, no rub or gallop Abdomen is soft nontender nondistended positive bowel sounds no hepatosplenomegaly Extremities no edema Neuro alert and orientated to 3 - Labs CBC & Chem 7: 08/26/18 05:56 08/26/18 05:56 Labs: Abnormal Lab Results - Last 24 Hours (Table) 08/25/18 08/25/18 08/25/18 Range/Units 11:25 11:25 11:25 RBC 4.29 L (4.30-5.90) m/uL RDW 15.6 H (11.5-15.5) % Plt Count 123 L (150-450) k/uL Lymphocytes # 0.9 L (1.0-4.8) k/uL PT 14.5 H (9.0-12.0) sec INR 1.4 H (<1.2) Potassium 3.1 L (3.5-5.1) mmol/L Carbon Dioxide (22-30) mmol/L BUN 5 L (9-20) mg/dL Creatinine (0.66-1.25) mg/dL Glucose 126 H (74-99) mg/dL POC Glucose (mg/dL) (75-99) mg/dL Calcium 8.2 L (8.4-10.2) mg/dL Magnesium 1.0 L (1.6-2.3) mg/dL AST 105 H (17-59) U/L 08/26/18 08/26/18 08/26/18 Range/Units 00:34 05:56 05:56 RBC 4.19 L (4.30-5.90) m/uL RDW (11.5-15.5) % Plt Count 105 L (150-450) k/uL Lymphocytes # (1.0-4.8) k/uL PT (9.0-12.0) sec INR (<1.2) Potassium 3.3 L (3.5-5.1) mmol/L Carbon Dioxide 31 H (22-30) mmol/L BUN 6 L (9-20) mg/dL Creatinine 0.58 L (0.66-1.25) mg/dL Glucose 106 H (74-99) mg/dL POC Glucose (mg/dL) 113 H (75-99) mg/dL Calcium (8.4-10.2) mg/dL Magnesium (1.6-2.3) mg/dL AST 78 H (17-59) U/L Assessment and Plan Assessment: 1. Chest pain. Troponins negative 3 sets EKG showing sinus tachycardia, nonspecific T-wave abnormality. Chest x-ray completed showing no acute cardiopulmonary process there is prominent interstitial lung disease. Serial troponins ordered. Awaiting cardiology evaluation 2. Alcohol withdrawal occult intoxication. CIWA protocal initiated. Continue thiamine and multivitamin. Continue Ativan as needed 3. Electrolyte imbalance. Potassium 3.1. Magnesium 1.0 on admission. Potassium stays 3.3 and magnesium is 1.8. Patient receiving supplement again. Repeat labs in a.m. 4. Sinus tachycardia secondary to alcohol withdrawal 5. History of liver cirrhosis with portal hypertension 6. History of esophageal varices EGD and ligation on 10/21/2017 7. History of PE 8. History of diabetes mellitus 2. Patient is not currently on his previous metformin. Will order hemoglobin A1c initiate sliding scale coverage 9. History of paroxysmal atrial fibrillation not on anticoagulation due to history of bleeding from his esophageal varices 10. History of COPD. No exacerbation at this time 11. History of C. diff infection. Patient reports that he still has a week left of Flagyl and vancomycin. Medications will be resumed 12. Nausea continue with Zofran as needed. We'll add IV Protonix. Nausea likely secondary to alcohol withdrawal. DVT prophylaxis Lovenox. GI prophylaxis Protonix I performed an examination of the patient and discussed their management with the physician [employer]. I have reviewed the Physician [employer]orer's notes and agree with the documented findings and plan of care
[2018-08-26 13:13] LABS: Glucose,Whole Blood 116 mg/dL (75-99)
[2018-08-26] MEDS: PANTOPRAZOLE 40 MG/10 ML VIAL IVP SCH (13:22)
--- NOTE | 2018-08-26 14:39 | P.CRDCN ---
History of Present Illness History of present illness: This is Dr. Kulkarni dictating a consult on this patient The patient was interviewed and examined by me 61-year-old male patient who presented with nausea chest discomfort. He is having chest discomfort for several hours and the discomfort but was all across his chest he also complained of shortness of breath and mild cough His home medications include iron magnesium oxide thiamine Pepcid Flagyl amlodipine and clonidine Allergies reviewed Review of systems No fever chills or rigors Minimal cough no expectoration Positive nausea vomiting no diarrhea No abdominal pain Normal muscular skeletal complaints Past history of atrial fibrillation CVA type 2 diabetes hypertension dyslipidemia pulmonary embolism History of noncompliance with follow-up. He has not shown up on his [facility] On examination. When I examined him he was sitting comfortably at the edge of the bed Normal breath sounds Heart sounds normal regular Abdomen soft nontender Extremities warm edema Low potassium, very low magnesium Twelve-lead ECG shows sinus rhythm with nonspecific ST-T abnormalities in the inferior leads Sodium 139 and function normal liver function normal Normal cardiac enzymes 3 Impression Atypical chest discomfort with in 3 normal cardiac enzymes and ECG that shows no definite ST-T wave normalities Severe hypomagnesemia probably related to alcohol consumption or diarrhea. He was recently at [facility] with C. difficile colitis History of regular alcohol use History liver cirrhosis with portal hypertension and esophageal varices status post ligation last year History of pulmonary embolism history of type 2 diabetes history of paroxysmal atrial fibrillation nondemented coordination on account of history of bleeding esophageal viruses Recent C. difficile colitis Suggest 2-D echo Doppler study Will follow Past Medical History Past Medical History: Atrial Fibrillation, Cancer, Chest Pain / Angina, COPD, CVA/TIA, Diabetes Mellitus, GERD/Reflux, GI Bleed, Hyperlipidemia, Hypertension, Pneumonia, Prostate Disorder, Pulmonary Embolus (PE) Additional Past Medical History / Comment(s): tachycardia/palpitations likely d/t alcohol withdrawal. hx of Alcoholism, chronic alcoholic cirrhosis with portal hypertension and previous history of upper and lower GI bleeding, esophageal varices, previous history of childhood seizure which he outgrew not taking any antiepileptic medication-possibly had recent seizure-2017 thought d/t alcohol withdrawal, pulmonary embolism x 2 R lung, TIA, diverticulosis, chronic lower bilateral extremity ankle edema if he walks alot, previous history of septicemia, cervical disc disease with chronic back pain with r sided sciatica, degenerative arthritis involving the lower back, tinnitus, vitamin D deficiency, iron anemia, chronic thrombocytopenia. pt had radiation 04/28 for prostate cancer History of Any Multi-Drug Resistant Organisms: MRSA Date of last positivie culture/infection: N/A MDRO Source:: STOOL Past Surgical History: Appendectomy, Cholecystectomy Additional Past Surgical History / Comment(s): EGDs/esophageal varicies bandings, colonoscopies. Past Anesthesia/Blood Transfusion Reactions: No Reported Reaction Additional Past Anesthesia/Blood Transfusion Reaction / Comment(s): after appendix removed sob Past Psychological History: Anxiety, Depression Additional Psychological History / Comment(s): Pt lives in an apartment alone. Apartment complex has front door ramp and has an elevator. no pets. Sometimes his sister stays with him and cleans his home. He uses a cane to ambulate at times. He drives but currently has no car. He gets to [facility] by [employer] bus. He has a nebulizer and a glucometer.pt stated he was getting [facility] [place] but has'nt seen them in few days,not sure if they're still coming. Used to work in [email or web address]. Relates that he's not been a smoker. Denies recreational drug use. His left him many years ago he has adult children that he does not see very often. No experience. No travel history. No animal exposures Smoking Status: Never smoker Past Alcohol Use History: Abuse, Daily Additional Past Alcohol Use History / Comment(s): Pt states that normally he drinks 2-3 large beers per day but 1-- he drank a 5th of vodka. Past Drug Use History: None Reported - Past Family History Mother Family Medical History: COPD, CVA/TIA, Dementia Additional Family Medical History / Comment(s): from a stroke Father Family Medical History: Pneumonia Additional Family Medical History / Comment(s): Father of pneumonia when he was close to 80 yrs old. Medications and Allergies Home Medications Medication Instructions Recorded Confirmed Type RX: cloNIDine HCL [Catapres] 0.1 mg PO BID #60 tab 03/26/18 08/25/18 Rx RX: Ferrous Sulfate [Iron (65 MG 325 mg PO DAILY 04/24/18 08/25/18 History Elemental)] RX: Magnesium Oxide [Mag-Ox] 400 mg PO HS 04/24/18 08/25/18 History Thiamine Mononitrate (Vit B1) 100 mg PO DAILY 06/21/18 08/25/18 History [Vitamin B-1] Famotidine [Pepcid] 20 mg PO BID 08/23/18 08/25/18 History RX: Vancomycin HCl 250 mg PO QID 08/23/18 08/25/18 History metroNIDAZOLE [Flagyl] 250 mg PO TID 08/23/18 08/25/18 History RX: amLODIPine [Norvasc] 5 mg PO BID 08/25/18 08/25/18 History Allergies Allergy/AdvReac Type Severity Reaction Status Date / Time adhesive tape Allergy Rash/Hives Verified 08/25/18 12:05 latex Allergy Unknown Verified 08/25/18 12:05 egg AdvReac Nausea & Verified 08/25/18 12:05 Vomiting lisinopril AdvReac EYES Verified 08/25/18 12:05 BURN&ITCH/WEAKNESS tomato AdvReac Nausea & Verified 08/25/18 12:05 Vomiting & Diarrhea Physical Exam Vitals: Vital Signs Temp Pulse Pulse Pulse Resp BP BP 08/26/18 12:00 98.1 F 84 84 18 112/80 08/26/18 08:00 98.2 F 93 93 20 110/80 08/26/18 03:34 91 08/26/18 03:31 97.7 F 91 20 132/76 08/26/18 00:00 97.1 F L 94 18 115/78 08/25/18 20:00 97.1 F L 104 H 107 H 18 131/77 150/89 08/25/18 19:00 108 H 20 127/83 08/25/18 18:30 109 H 23 133/89 08/25/18 18:00 107 H 12 134/75 08/25/18 17:30 112 H 14 136/80 08/25/18 17:00 115 H 18 147/98 08/25/18 16:30 12 137/85 08/25/18 16:00 108 H 12 143/86 08/25/18 15:30 117 H 13 142/94 08/25/18 15:00 110 H 12 144/94 Pulse Ox 08/26/18 12:00 92 L 08/26/18 08:00 95 08/26/18 03:34 08/26/18 03:31 97 08/26/18 00:00 97 08/25/18 20:00 97 08/25/18 19:00 93 L 08/25/18 18:30 93 L 08/25/18 18:00 94 L 08/25/18 17:30 96 08/25/18 17:00 96 08/25/18 16:30 98 08/25/18 16:00 96 08/25/18 15:30 94 L 08/25/18 15:00 96 Intake and Output 08/25/18 08/26/18 08/26/18 22:59 06:59 14:59 Intake Total 480 Output Total 700 Balance -700 480 Intake: Oral 480 Output: Urine 700 Other: Voiding Method Toilet Toilet # Voids 1 Weight 73.1 kg Results 08/27/18 06:39 08/27/18 06:39 Cardiac Enzymes 08/25/18 08/25/18 08/26/18 Range/Units 18:28 23:40 05:56 AST 78 H (17-59) U/L Troponin I <0.012 <0.012 (0.000-0.034) ng/mL CBC 08/26/18 Range/Units 05:56 WBC 4.3 (3.8-10.6) k/uL RBC 4.19 L (4.30-5.90) m/uL Hgb 13.1 (13.0-17.5) gm/dL Hct 39.6 (39.0-53.0) % Plt Count 105 L (150-450) k/uL Comprehensive Metabolic Panel 08/26/18 Range/Units 05:56 Sodium 137 (137-145) mmol/L Potassium 3.3 L (3.5-5.1) mmol/L Chloride 100 (98-107) mmol/L Carbon Dioxide 31 H (22-30) mmol/L BUN 6 L (9-20) mg/dL Creatinine 0.58 L (0.66-1.25) mg/dL Glucose 106 H (74-99) mg/dL Calcium 9.1 (8.4-10.2) mg/dL AST 78 H (17-59) U/L ALT 38 (21-72) U/L Alkaline Phosphatase 102 (38-126) U/L Total Protein 7.3 (6.3-8.2) g/dL Albumin 3.7 (3.5-5.0) g/dL Current Medications Generic Name Dose Route Start Last Admin Trade Name Freq PRN Reason Stop Dose Admin Acetaminophen 650 mg 08/25/18 15:17 08/25/18 16:57 Tylenol Tab PO 650 mg Q6HR PRN Administration Fever and/ or Pain Amlodipine Besylate 5 mg 08/25/18 21:00 08/26/18 08:04 Norvasc PO 5 mg BID TANYA Administration Clonidine 0.1 mg 08/25/18 21:00 08/26/18 08:04 Catapres PO 0.1 mg BID TANYA Administration Enoxaparin Sodium 40 mg 08/26/18 09:00 08/26/18 08:04 Lovenox SQ 40 mg DAILY [facility] Administration Famotidine 20 mg 08/25/18 21:00 08/26/18 08:04 Pepcid PO 20 mg BID [facility] Administration Ferrous Sulfate 325 mg 08/26/18 09:00 08/26/18 08:05 Feosol PO 325 mg DAILY [facility] Administration Insulin Aspart 0 unit 08/25/18 17:30 08/26/18 14:20 Novolog SQ Not Given ACHS [facility] Protocol Lorazepam 1 mg 08/25/18 13:47 08/26/18 13:23 Ativan IV 1 mg Q2HR PRN Administration CIWA 8 or 9 Lorazepam 1 mg 08/25/18 13:47 Ativan IV Q1HR PRN CIWA 10 to 15 Lorazepam 2 mg 08/25/18 13:47 Ativan IV 08/27/18 13:47 Q10M PRN CIWA 16 or higher Magnesium Oxide 400 mg 08/25/18 21:00 08/25/18 22:41 Mag-Ox PO 400 mg HS TANYA Administration Multivitamins 1 each 08/26/18 12:00 08/26/18 11:46 Theragran PO 1 each DAILY@1200 [facility] Administration Naloxone HCl 0.2 mg 08/25/18 13:42 Narcan IV Q2M PRN Opioid Reversal Ondansetron HCl 4 mg 08/25/18 15:17 08/26/18 02:51 Zofran IVP 4 mg Q6HR PRN Administration Vomiting Pantoprazole Sodium 40 mg 08/26/18 12:15 08/26/18 13:22 Protonix IVP 40 mg DAILY TANYA Administration Thiamine HCl 100 mg 08/25/18 17:00 08/26/18 11:47 Vitamin B-1 PO 100 mg BID@1200,1700 TANYA Administration Intake and Output 08/25/18 08/26/18 08/26/18 22:59 06:59 14:59 Intake Total 480 Output Total 700 Balance -700 480 Intake: Oral 480 Output: Urine 700 Other: Voiding Method Toilet Toilet # Voids 1 Weight 73.1 kg 08/26/18 05:56 08/26/18 05:56
[2018-08-26 15:49] LABS: Hemoglobin A1C 5.9 % (4.0-6.0)
[2018-08-26 17:04] LABS: Glucose,Whole Blood 96 mg/dL (75-99)
[2018-08-26 21:02] LABS: Glucose,Whole Blood 134 mg/dL (75-99)
[2018-08-26] MEDS: MAGNESIUM OXIDE 400 MG TAB PO SCH (21:31)
[2018-08-27] MEDS: INSULIN ASPART (NovoLOG) 100 UNIT/ML VIAL SQ SCH ×4 (06:45→21:24)
[2018-08-27 06:50] LABS: Glucose,Whole Blood 100 mg/dL (75-99)
[2018-08-27 07:11] LABS: Basophils % (A) 0 %; Eosinophils # (A) 0.2 k/uL (0-0.7); Eosinophils % (A) 4 %; HCT 41.7 % (39.0-53.0); HGB 13.5 gm/dL (13.0-17.5); Lymphocytes # (A) 1.2 k/uL (1.0-4.8); Lymphocytes % (A) 29 %; MCH 31.5 pg (25.0-35.0); MCHC 32.3 g/dL (31.0-37.0); MCV 97.5 fL (80.0-100.0); Mean Platelet Volume 7.4; Monocytes # (A) 0.2 k/uL (0-1.0); Monocytes % (A) 6 %; Neutrophils # (A) 2.5 k/uL (1.3-7.7); Neutrophils % (A) 60 %; Platelet Count 104 k/uL (150-450); RBC 4.27 m/uL (4.30-5.90); WBC 4.2 k/uL (3.8-10.6)
[2018-08-27 07:34] LABS: ALT 35 U/L (21-72); AST 56 U/L (17-59); Albumin 3.7 g/dL (3.5-5.0); Alkaline Phosphatase 94 U/L (38-126); Anion Gap 8 mmol/L; Blood Urea Nitrogen 12 mg/dL (9-20); Calcium 9.2 mg/dL (8.4-10.2); Carbon Dioxide 27 mmol/L (22-30); Chloride 104 mmol/L (98-107); Glucose 102 mg/dL (74-99); Magnesium 1.6 mg/dL (1.6-2.3); Potassium 4.1 mmol/L (3.5-5.1); Sodium 139 mmol/L (137-145); Total Protein 7.4 g/dL (6.3-8.2)
[2018-08-27] MEDS: ENOXAPARIN 40 MG/0.4 ML SYRINGE SQ SCH (08:06)
[2018-08-27] MEDS: amLODIPine 5 MG TAB PO SCH ×2 (08:07→21:34)
[2018-08-27] MEDS: MULTIVITAMINS, THERA 1 EACH TAB PO SCH (08:07)
[2018-08-27] MEDS: FERROUS SULFATE 325 MG TAB PO SCH (08:07)
[2018-08-27] MEDS: FAMOTIDINE 20 MG TAB PO SCH (08:07)
[2018-08-27] MEDS: cloNIDine HCL 0.1 MG TAB PO SCH ×2 (08:07→21:34)
[2018-08-27] MEDS: PANTOPRAZOLE 40 MG/10 ML VIAL IVP SCH (08:08)
[2018-08-27 11:42] LABS: Glucose,Whole Blood 95 mg/dL (75-99)
--- NOTE | 2018-08-27 11:55 | P.PN ---
Subjective Mr. Aguilar seen and examined resting comfortably in bed in no acute distress. He denies any further symptoms of shortness of breath. He continues to complain of a nonproductive cough as well as an associated sharp pain in his chest each time he coughs. Laboratory data reviewed, WBC 4.2, hemoglobin 13.5, platelets 104, sodium 139, potassium 4.1, creatinine 0.74, magnesium 1.6. Blood pressure 119/79 heart rate 91 afebrile maintaining oxygen saturation on room air. Currently maintained on amlodipine 5 mg twice a day, clonidine 0.1 mg twice a day. GENERAL: Well-appearing, well-nourished and in no acute distress. NECK: Supple without JVD or thyromegaly. LUNGS: Breath sounds clear to auscultation bilaterally. Respiration equal and unlabored. No wheezes, rales or rhonchi. HEART: Regular rate and rhythm without murmurs, rubs or gallops. S1 and S2 heard. EXTREMITIES: Normal range of motion, no edema. No clubbing or cyanosis. Peripheral pulses intact. ASSESSMENT Sharp pleuritic chest discomfort, atypical for angina. An acute coronary event has been ruled out. Hypomagnesemia, improved Chronic regular alcohol abuse Liver cirrhosis and portal hypertension Esophageal varices status post ligation Paroxysmal atrial fibrillation not on detention anticoagulation secondary to bleeding esophageal varices Diabetes mellitus Hypertension PLAN 2-D echocardiogram and Doppler study has been obtained and will be reviewed. Overall stable from a cardiac perspective with evidence of pleuritic type chest discomfort. An acute event has been ruled out. Ongoing medical management. Nurse Practitioner note has been reviewed, I agree with a documented findings and plan of care. Patient was seen and examined. Objective - Vital Signs Vital signs: Vital Signs Temp 98.0 F 08/27/18 08:00 Pulse 91 08/27/18 08:00 Resp 18 08/27/18 08:00 BP 119/79 08/27/18 08:00 Pulse Ox 96 08/27/18 08:00 Intake & Output 08/26/18 08/27/18 08/27/18 18:59 06:59 18:59 Intake Total 840 240 Balance 840 240 Weight 64.4 kg Intake: Oral 840 240 Other: Voiding Method Toilet Toilet # Voids 2 2 - Labs CBC & Chem 7: 08/27/18 06:39 08/27/18 06:39 Labs: Abnormal Lab Results - Last 24 Hours (Table) 08/26/18 08/26/18 08/27/18 Range/Units 13:11 21:01 06:24 RBC (4.30-5.90) m/uL Plt Count (150-450) k/uL Glucose (74-99) mg/dL POC Glucose (mg/dL) 116 H 134 H 100 H (75-99) mg/dL 08/27/18 08/27/18 Range/Units 06:39 06:39 RBC 4.27 L (4.30-5.90) m/uL Plt Count 104 L (150-450) k/uL Glucose 102 H (74-99) mg/dL POC Glucose (mg/dL) (75-99) mg/dL Microbiology - Last 24 Hours (Table) 08/25/18 12:20 Blood Culture - Preliminary Blood No Growth after 24 hours
[2018-08-27] MEDS: THIAMINE 100 MG TAB PO SCH ×2 (12:14→17:43)
--- NOTE | 2018-08-27 13:57 | P.PN ---
Subjective Progress Note Date: 08/27/18 This is a 63-year-old male patient who presented to the ER with complaints of chest pain. Patient does have known past medical history of EtOH, atrial fibrillation, chest pain, diabetes mellitus, GERD, GI bleed, hyperlipidemia, hypertension, pneumonia, prostate disorder and pulmonary embolism. Patient also reports that he was treated for C. diff at [facility]. Patient reports he has approximately 1 week left of his antibiotic Patient reports that he woke up this evening feeling well with that he has intermittent chest pain that radiates to his back. Patient also reports he is nauseated. Patient states his last drink was 2 days ago she drinks vodka. Chest x-ray completed showing no acute cardiopulmonary process there is component of interstitial lung disease. EKG completed showing sinus tachycardia and nonspecific ST-T wave abnormality. Initial troponin negative. Serum alcohol 55. This time patient is resting comfortably in bed. Patient is complaining of intermittent chest pain. Serial troponins have been ordered. Patient complaining of intermittent nausea. Patient denies any abdominal pain. Patient denies urinary frequency. Alcohol withdrawal protocol has been initiated. Potassium and magnesium replacement initiated. 08/26/2018 patient complaining of nausea today still having some intermittent chest pain episodes. No actual vomiting reported. Patient reporting last bowel movement was 2-3 days ago. Denies any burning with urination. On 08/27/2018 patient was seen and examined on the medical floor he is still complaining of nausea he had 2 episodes of diarrhea again today is still complaining of episodes of sharp pain in the left side of the chest otherwise he denies any complaints there is no fever or chills no headache or dizziness no shortness of breath, no cough no abdominal pain and no urinary symptoms Objective - Vital Signs Vital signs: Vital Signs Temp 97.9 F 08/27/18 12:00 Pulse 80 08/27/18 12:00 Resp 18 08/27/18 12:00 BP 124/76 08/27/18 12:00 Pulse Ox 96 08/27/18 12:00 Intake & Output 08/26/18 08/27/18 08/27/18 18:59 06:59 18:59 Intake Total 840 240 Balance 840 240 Weight 64.4 kg Intake: Oral 840 240 Other: Voiding Method Toilet Toilet # Voids 2 2 1 # Bowel Movements 1 - Exam Head normocephalic and atraumatic Neck supple no JVD no goiter no lymphadenopathy Lungs clear to auscultation bilaterally no wheezing or crackles Heart regular rate and rhythm S1-S2, no rub or gallop Abdomen is soft nontender nondistended positive bowel sounds no hepatosplenomegaly Extremities no edema no cyanosis or clubbing Neuro alert and orientated to 3 no gross focal deficit - Labs CBC & Chem 7: 08/27/18 06:39 08/27/18 06:39 Labs: Abnormal Lab Results - Last 24 Hours (Table) 08/26/18 08/27/18 08/27/18 Range/Units 21:01 06:24 06:39 RBC 4.27 L (4.30-5.90) m/uL Plt Count 104 L (150-450) k/uL Glucose (74-99) mg/dL POC Glucose (mg/dL) 134 H 100 H (75-99) mg/dL 08/27/18 Range/Units 06:39 RBC (4.30-5.90) m/uL Plt Count (150-450) k/uL Glucose 102 H (74-99) mg/dL POC Glucose (mg/dL) (75-99) mg/dL Microbiology - Last 24 Hours (Table) 08/25/18 12:20 Blood Culture - Preliminary Blood No Growth after 24 hours Assessment and Plan Plan: 1. Chest pain. Troponins negative 3 sets EKG showing sinus tachycardia, nons pecific T-wave abnormality. Chest x-ray completed showing no acute cardiopulmonary process there is prominent interstitial lung disease. Serial troponins ordered. Awaiting cardiology evaluation 2. Alcohol withdrawal occult intoxication. CIWA protocal initiated. Continue thiamine and multivitamin. Continue Ativan as needed 3. Electrolyte imbalance. Potassium 3.1. Magnesium 1.0 on admission. Potassium stays 3.3 and magnesium is 1.8. Patient receiving supplement again. Repeat labs in a.m. 4. Sinus tachycardia secondary to alcohol withdrawal 5. History of liver cirrhosis with portal hypertension 6. History of esophageal varices EGD and ligation on 10/21/2017 7. History of PE 8. History of diabetes mellitus 2. Patient is not currently on his previous metformin. Will order hemoglobin A1c initiate sliding scale coverage 9. History of paroxysmal atrial fibrillation not on anticoagulation due to history of bleeding from his esophageal varices 10. History of COPD. No exacerbation at this time 11. History of C. diff infection. With recent hospitalization. At this time patient is complaining of diarrhea will recheck stools for C. diff toxin 12. Nausea continue with Zofran as needed. We'll add IV Protonix. Nausea likely secondary to alcohol withdrawal. DVT prophylaxis Lovenox. GI prophylaxis Protonix
[2018-08-27 16:58] LABS: Glucose,Whole Blood 91 mg/dL (75-99)
[2018-08-27 21:17] LABS: Glucose,Whole Blood 97 mg/dL (75-99)
[2018-08-27] MEDS: MAGNESIUM OXIDE 400 MG TAB PO SCH (21:34)
[2018-08-27 22:00] VITALS: RESP 16
[2018-08-28 05:10] VITALS: BP 124/81; PULSE 78; TEMP 98.4
[2018-08-28 06:54] LABS: Glucose,Whole Blood 102 mg/dL (75-99)
[2018-08-28] MEDS: INSULIN ASPART (NovoLOG) 100 UNIT/ML VIAL SQ SCH ×2 (08:54→13:04)
--- NOTE | 2018-08-28 09:42 | P.DS ---
Providers Date of admission: 08/25/18 13:43 Expected date of discharge: 08/28/18 Attending physician: Charlette Finney Consults: 08/25/18 15:20 Consult Physician Routine Consulting Provider: Khai Kulkarni Consult Reason/Comments: chest pain Do you want consulting provider notified?: Yes Primary care physician: Yoon Phillips Hospital Course: Discharge diagnosis 1. Chest pain. Troponins negative 3 sets EKG showing sinus tachycardia, nonspecific T-wave abnormality. Chest x-ray completed showing no acute cardiopulmonary process there is prominent interstitial lung disease. Troponins negative 3. 2-D echo completed. Per cardiology overall stable from cardiac perspective. An acute event has been ruled out per cardiology. 2. Alcohol withdrawal occult intoxication. CIWA protocal initiated. Continue thiamine and multivitamin. Patient again educated on importance of alcohol cessation 3. Electrolyte imbalance. Potassium 3.1. Magnesium 1.0 on admission. Potas sium stays 3.3 and magnesium is 1.8. Patient receiving supplement again. Resolved magnesium 1.6. Continue Mag-Ox 4. Sinus tachycardia secondary to alcohol withdrawal. Resolved 5. History of liver cirrhosis with portal hypertension 6. History of esophageal varices EGD and ligation on 10/21/2017 7. History of PE 8. History of diabetes mellitus 2. Patient is not currently on his previous metformin. A1c 5.9. Blood sugars have been well-controlled. 9. History of paroxysmal atrial fibrillation not on anticoagulation due to history of bleeding from his esophageal varices 10. History of COPD. No exacerbation at this time 11. History of C. diff infection. With recent hospitalization. At this time patient is complaining of diarrhea, C. diff negative. Antibiotics discontinued 12. Nausea continue with Zofran as needed. We'll add IV Protonix. Nausea likely secondary to alcohol withdrawal. hospital Course This is a 63-year-old male patient who presented to the ER with complaints of chest pain. Patient does have known past medical history of EtOH, atrial fibrillation, chest pain, diabetes mellitus, GERD, GI bleed, hyperlipidemia, hypertension, pneumonia, prostate disorder and pulmonary embolism. Patient also reports that he was treated for C. diff at [facility]. Patient reports he has approximately 1 week left of his antibiotic Patient reports that he woke up this evening feeling well with that he has intermittent chest pain that radiates to his back. Patient also reports he is nauseated. Patient states his last drink was 2 days ago she drinks vodka. Chest x-ray completed showing no acute cardiopulmonary process there is component of interstitial lung disease. EKG completed showing sinus tachycardia and nonspecific ST-T wave abnormality. Initial troponin negative. Serum alcohol 55. This time patient is resting comfortably in bed. Patient is complaining of intermittent chest pain. Serial troponins have been ordered. Patient complaining of intermittent nausea. Patient denies any abdominal pain. Patient denies urinary frequency. Alcohol withdrawal protocol has been initiated. Potassium and magnesium replacement initiated. 08/26/2018 patient complaining of nausea today still having some intermittent chest pain episodes. No actual vomiting reported. Patient reporting last bowel movement was 2-3 days ago. Denies any burning with urination. On 08/27/2018 patient was seen and examined on the medical floor he is still complaining of nausea he had 2 episodes of diarrhea again today is still complaining of episodes of sharp pain in the left side of the chest otherwise he denies any complaints there is no fever or chills no headache or dizziness no shortness of breath, no cough no abdominal pain and no urinary symptoms On 08/28/2018 patient is alert and oriented 3. Patient reports that he is ready to go home. Shortness breath. Denies nausea vomiting or diarrhea. C. diff is negative. Heart rate well-controlled. Patient has been cleared for discharge from cardiology standpoint. Patient to follow-up with PT for further management. Patient again educated on importance of alcohol cessation I performed an examination of the patient and discussed their management with the Nurse Practitioner. I have reviewed the Nurse Practitioner's notes and agree with the documented findings and plan of care Patient Condition at Discharge: Stable Plan - Discharge Summary Discharge Rx Participant: No New Discharge Prescriptions: Continue cloNIDine HCL [Catapres] 0.1 mg PO BID #60 tab Magnesium Oxide [Mag-Ox] 400 mg PO HS Ferrous Sulfate [Iron (65 MG Elemental)] 325 mg PO DAILY Thiamine Mononitrate (Vit B1) [Vitamin B-1] 100 mg PO DAILY Famotidine [Pepcid] 20 mg PO BID amLODIPine [Norvasc] 5 mg PO BID Discontinued metroNIDAZOLE [Flagyl] 250 mg PO TID Vancomycin HCl 250 mg PO QID Discharge Medication List cloNIDine HCL [Catapres] 0.1 mg PO BID #60 tab 03/26/18 [Rx] Ferrous Sulfate [Iron (65 MG Elemental)] 325 mg PO DAILY 04/24/18 [History] Magnesium Oxide [Mag-Ox] 400 mg PO HS 04/24/18 [History] Thiamine Mononitrate (Vit B1) [Vitamin B-1] 100 mg PO DAILY 06/21/18 [History] Famotidine [Pepcid] 20 mg PO BID 08/23/18 [History] amLODIPine [Norvasc] 5 mg PO BID 08/25/18 [History] Follow up Appointment(s)/Referral(s): [facility], [NON-STAFF] - Yoon Phillips DO [Primary Care Provider] - 1-2 days Activity/Diet/Wound Care/Special Instructions: Activity as tolerated Diet heart healthy Discharge Disposition: HOME SELF-CARE
[2018-08-28 09:44] LABS: Basophils % (A) 0 %; Eosinophils # (A) 0.1 k/uL (0-0.7); Eosinophils % (A) 3 %; HCT 42.2 % (39.0-53.0); HGB 13.6 gm/dL (13.0-17.5); Lymphocytes # (A) 1.2 k/uL (1.0-4.8); Lymphocytes % (A) 27 %; MCH 31.3 pg (25.0-35.0); MCHC 32.1 g/dL (31.0-37.0); MCV 97.4 fL (80.0-100.0); Mean Platelet Volume 7.9; Monocytes # (A) 0.2 k/uL (0-1.0); Monocytes % (A) 5 %; Neutrophils # (A) 2.8 k/uL (1.3-7.7); Neutrophils % (A) 62 %; Platelet Count 103 k/uL (150-450); RBC 4.33 m/uL (4.30-5.90); RDW 15.2 % (11.5-15.5); WBC 4.4 k/uL (3.8-10.6)
[2018-08-28] MEDS: cloNIDine HCL 0.1 MG TAB PO SCH (09:44)
[2018-08-28] MEDS: FERROUS SULFATE 325 MG TAB PO SCH (09:44)
[2018-08-28] MEDS: ENOXAPARIN 40 MG/0.4 ML SYRINGE SQ SCH (09:44)
[2018-08-28] MEDS: PANTOPRAZOLE 40 MG/10 ML VIAL IVP SCH (09:44)
[2018-08-28] MEDS: amLODIPine 5 MG TAB PO SCH (09:44)
[2018-08-28 09:54] LABS: ALT 31 U/L (21-72); AST 47 U/L (17-59); Albumin 3.8 g/dL (3.5-5.0); Alkaline Phosphatase 87 U/L (38-126); Anion Gap 9 mmol/L; Blood Urea Nitrogen 12 mg/dL (9-20); Calcium 9.5 mg/dL (8.4-10.2); Carbon Dioxide 26 mmol/L (22-30); Chloride 103 mmol/L (98-107); Glucose 174 mg/dL (74-99); Magnesium 1.7 mg/dL (1.6-2.3); Potassium 4.1 mmol/L (3.5-5.1); Sodium 138 mmol/L (137-145); Total Bilirubin 0.8 mg/dL (0.2-1.3); Total Protein 7.4 g/dL (6.3-8.2)
--- NOTE | 2018-08-28 10:25 | ECHOF ---
Referral Reason:cp MEASUREMENTS -------- HEIGHT: 165.1 cm WEIGHT: 64.0 kg BP: RVIDd: 2.6 cm (< 3.3) IVSd: 1.3 cm (0.6 - 1.1) LVIDd: 4.3 cm (3.9 - 5.3) LVPWd: 1.2 cm (0.6 - 1.1) IVSs: 1.5 cm LVIDs: 3.1 cm LVPWs: 1.5 cm Ao Diam: 3.5 cm (2.0 - 3.7) AV Cusp: 1.8 cm (1.5 - 2.6) LA Diam: 3.2 cm (2.7 - 3.8) MV EXCURSION: 18.742 mm (> 18.000) MV EF SLOPE: 74 mm/s (70 - 150) EPSS: 0.3 cm MV E Riki: 0.41 m/s MV DecT: 293 ms MV A Riki: 0.64 m/s MV E/A Ratio: 0.64 RAP: 5.00 mmHg RVSP: 14.84 mmHg FINDINGS -------- Sinus rhythm. This was a technically good study. LV size, wall thickness and systolic function are normal, with an EF greater than 55%. The left isabel tricular size is normal. The right ventricle is normal in size. The left atrial size is normal. The right atrial size is normal. There is mild aortic valve sclerosis. There is no evidence of aortic regurgitation. Mild mitral annular calcification present. Mild mitral regurgitation is present. Mild tricuspid regurgitation present. There is no evidence of pulmonary hypertension. The right v entricular systolic pressure, as measured by Doppler, is 14.84mmHg. There is no pulmonic regurgitation present. The aortic root size is normal. There is no pericardial effusion. CONCLUSIONS -------- 1. LV size, wall thickness and systolic function are normal, with an EF greater than 55%. 2. The left ventricular size is normal. 3. The right ventricle is normal in size. 4. The left atrial size is normal. 5. The right atrial size is normal. 6. There is mild aortic valve sclerosis. 7. Mild mitral annular calcification present. 8. Mild mitral regurgitation is present. 9. Mild tricuspid regurgitation present. 10. There is no evidence of pulmonary hypertension. 11. The right ventricular systolic pressure, as measured by Doppler, is 14.84mmHg. 12. There is no pulmonic regurgitation present. 13. The aortic root size is normal. 14. There is no pericardial effusion. RELATIONSHIP EXECUTIVE: Dot Carter RDCS
[2018-08-28 11:41] LABS: Glucose,Whole Blood 100 mg/dL (75-99)
[2018-08-28] MEDS: THIAMINE 100 MG TAB PO SCH (13:04)
[2018-08-28] MEDS: MULTIVITAMINS, THERA 1 EACH TAB PO SCH (13:04)
--- NOTE | 2018-08-29 16:34 | CDI ---
Documentation Clarification Form Date: 08/29/2018 4:13:21 PM From: Alejandrina Dickson Phone: If you have a question about this query, please contact Elaine Corey, Truck Bench Mechanic at [phone] between 8am and 5pm. Admit Date: 08/26/2018 10:57:00 AM Patient Name: Carlos Bains Visit Number: [id number] Discharge Date: 08/28/2018 7:26:00 PM ATTENTION: The Clinical Documentation Specialists (CDI) and [facility] Coding Staff appreciate your assistance in clarifying documentation. Please respond to the clarification below the line at the bottom and electronically sign. The CDI & [facility] Coding staff will review the response and follow-up if needed. Please note: Queries are made part of the Legal Health Record. If you have any questions, please contact the author of this message via ITS. Dr. Doug Beck The H and P documents chief complaint as COPD and respiratory failure. Please clarify type of respiratoary failure if acute or chronic. History/Risk Factors: + tobacco, COPD exacerbation Tobacco use: yes Clinical Indicators: cough congestion and SOB wheezing scattered rales Vital signs: 97.9 F 102 24 110/75 95 RA then 92 RA Treatment Bed rest IV fluids IV and inhaled steroids and updrafts In your professional opinion, can you please clarify if these findings signify one of the following conditions? Acuity Acute Chronic Acute on Chronic Specificity Respiratory Failure (further specify (if known)): With hypercapnia? (pCO2 >50 and pH <7.35) With hypoxia? (pO2 <60 mm Hg or SpO2 <91% on room air) Respiratory Distress Respiratory Insufficiency Other Diagnosis, please specify Unable to determine MTDD
== END 2018-08-28 15:28 | disposition home health service (06) | DRG 313 ==
LOC: EC 11:02 → 3SCARD 13:43 → 4MS4W 08-27 15:47
PROVIDERS: ADMIT Internal Medicine; ATTEND Internal Medicine
DX: R07.89 Other chest pain (principal); F10.239 Alcohol dependence with withdrawal, unspecified; K76.6 Portal hypertension; R19.7 Diarrhea, unspecified; E11.9 Type 2 diabetes mellitus without complications; E78.5 Hyperlipidemia, unspecified; E83.42 Hypomagnesemia; E87.6 Hypokalemia; F32.9 Major depressive disorder, single episode, unspecified; F41.9 Anxiety disorder, unspecified; I10 Essential (primary) hypertension; I48.0 Paroxysmal atrial fibrillation; J44.9 Chronic obstructive pulmonary disease, unspecified; K21.9 Gastro-esophageal reflux disease without esophagitis; K70.30 Alcoholic cirrhosis of liver without ascites; Z79.899 Other long term (current) drug therapy; Z82.3 Family history of stroke; Z82.5 Family history of asthma and other chronic lower respiratory diseases; Z85.46 Personal history of malignant neoplasm of prostate; Z86.711 Personal history of pulmonary embolism; Z86.73 Personal history of transient ischemic attack (TIA), and cerebral infarction without residual deficits; Z88.8 Allergy status to other drugs, medicaments and biological substances; Z91.012 Allergy to eggs; Z91.040 Latex allergy status; M50.30 Other cervical disc degeneration, unspecified cervical region; G89.29 Other chronic pain; Y90.2 Blood alcohol level of 40-59 mg/100 ml; R00.0 Tachycardia, unspecified; M54.31 Sciatica, right side; D69.6 Thrombocytopenia, unspecified; Z86.14 Personal history of Methicillin resistant Staphylococcus aureus infection; Z91.19 Patient's noncompliance with other medical treatment and regimen; Z60.2 Problems related to living alone; R11.0 Nausea; F10.229 Alcohol dependence with intoxication, unspecified
CPT/HCPCS: 36415; 71046; 80053; 80320; 83036; 83605; 83690; 83735; 84484; 85025; 85610; 85730; 87040; 87324; 87502; 93005; 93306; 94760; 96361; 96365; 96366; 96368; 96375; 96376; 99285

== ENCOUNTER 2018-09-04 09:00 | Inpatient (IN) | payer OTHER ==
[2018-09-04] MEDS ORDERED: IPRATROPIUM-ALBUTEROL 3 ML NEB INHALATION STA ×2 (09:02→10:41)
[2018-09-04] MEDS ORDERED: SODIUM CHLORIDE 0.9% 1,000 ML IV STA ×2 (09:02→10:25)
[2018-09-04] MEDS ORDERED: methylPREDNISolone SOD SUCCI 125 MG/2 ML VIAL IV STA (09:02)
--- NOTE | 2018-09-04 09:06 | ED ---
SOB HPI - General Stated Complaint: SOB Time Seen by Provider: 09/04/18 09:00 Source: patient, EMS, RN notes reviewed, old records reviewed Mode of arrival: EMS - History of Present Illness Initial Comments: This is a 64-year-old male with a history of asthma and multiple other medical problems who states he had the onset yesterday of a cough and swelling became very dyspneic. He also had some nausea no vomiting he denies any chest pain he states he felt hotbut no chills or sweats. He states she's coughing up white phlegm exertional dyspnea he does use inhalers updrafts at home did not help today. He was brought in by EMS. No other modifying factors at this time MD Complaint: shortness of breath, cough - Related Data Home Medications Medication Instructions Recorded Confirmed Ferrous Sulfate [Iron (65 MG 325 mg PO DAILY 04/24/18 09/04/18 Elemental)] Magnesium Oxide [Mag-Ox] 400 mg PO HS 04/24/18 09/04/18 Thiamine Mononitrate (Vit B1) 100 mg PO DAILY 06/21/18 09/04/18 [Vitamin B-1] Famotidine [Pepcid] 20 mg PO BID 08/23/18 09/04/18 amLODIPine [Norvasc] 5 mg PO BID 08/25/18 09/04/18 Previous Rx's Medication Instructions Recorded cloNIDine HCL [Catapres] 0.1 mg PO BID #60 tab 03/26/18 Allergies Allergy/AdvReac Type Severity Reaction Status Date / Time adhesive tape Allergy Rash/Hives Verified 09/04/18 09:46 latex Allergy Unknown Verified 09/04/18 09:46 egg AdvReac Nausea & Verified 09/04/18 09:46 Vomiting lisinopril AdvReac EYES Verified 09/04/18 09:46 BURN&ITCH/WEAKNESS tomato AdvReac Nausea & Verified 09/04/18 09:46 Vomiting & Diarrhea Review of Systems ROS Statement: Those systems with pertinent positive or pertinent negative responses have been documented in the HPI. ROS Other: All systems not noted in ROS Statement are negative. Past Medical History Past Medical History: Atrial Fibrillation, Cancer, Chest Pain / Angina, COPD, CVA/TIA, Diabetes Mellitus, GERD/Reflux, GI Bleed, Hyperlipidemia, Hypertension, Pneumonia, Prostate Disorder, Pulmonary Embolus (PE) Additional Past Medical History / Comment(s): tachycardia/palpitations likely d/t alcohol withdrawal. hx of Alcoholism, chronic alcoholic cirrhosis with portal hypertension and previous history of upper and lower GI bleeding, esophageal varices, previous history of childhood seizure which he outgrew not taking any antiepileptic medication-possibly had recent seizure-2017 thought d/t alcohol withdrawal, pulmonary embolism x 2 R lung, TIA, diverticulosis, chronic lower bilateral extremity ankle edema if he walks alot, previous history of septicemia, cervical disc disease with chronic back pain with r sided sciatica, degenerative arthritis involving the lower back, tinnitus, vitamin D deficiency, iron anemia, chronic thrombocytopenia. pt had radiation 04/28 for prostate cancer History of Any Multi-Drug Resistant Organisms: MRSA Date of last positivie culture/infection: N/A MDRO Source:: STOOL Past Surgical History: Appendectomy, Cholecystectomy Additional Past Surgical History / Comment(s): EGDs/esophageal varicies bandings, colonoscopies. Past Anesthesia/Blood Transfusion Reactions: No Reported Reaction Additional Past Anesthesia/Blood Transfusion Reaction / Comment(s): after appendix removed sob Past Psychological History: Anxiety, Depression Additional Psychological History / Comment(s): Pt lives in an apartment alone. Apartment complex has front door ramp and has an elevator. no pets. Sometimes his sister stays with him and cleans his home. He uses a cane to ambulate at times. He drives but currently has no car. He gets to [facility] by [employer] bus. He has a nebulizer and a glucometer.pt stated he was getting [facility] [place] but has'nt seen them in few days,not sure if they're still coming. Used to work in [employer]. Relates that he's not been a smoker. Denies recreational drug use. His left him many years ago he has adult children that he does not see very often. No experience. No travel history. No animal exposures Smoking Status: Never smoker Past Alcohol Use History: Abuse, Daily Additional Past Alcohol Use History / Comment(s): Pt states that normally he drinks 2-3 large beers per day but 1--19 he drank a 5th of vodka. Past Drug Use History: None Reported - Past Family History Mother Family Medical History: COPD, CVA/TIA, Dementia Additional Family Medical History / Comment(s): from a stroke Father Family Medical History: Pneumonia Additional Family Medical History / Comment(s): Father of pneumonia when he was close to 80 yrs old. General Exam - General Exam Comments Initial Comments: This a well-developed well-nourished awake alert oriented 3 male General appearance: alert, in distress Head exam: Present: atraumatic, normocephalic, normal inspection Eye exam: Present: normal appearance, PERRL, EOMI. Absent: scleral icterus, conjunctival injection, periorbital swelling ENT exam: Present: mucous membranes dry Neck exam: Present: normal inspection, full ROM, other (No stridor JVD or bruits). Absent: tenderness, meningismus, lymphadenopathy Respiratory exam: Present: wheezes, decreased breath sounds. Absent: respiratory distress, rales, rhonchi, stridor Cardiovascular Exam: Present: normal rhythm, tachycardia, normal heart sounds. Absent: systolic murmur, diastolic murmur, rubs, gallop, clicks GI/Abdominal exam: Present: soft, normal bowel sounds. Absent: distended, tenderness, guarding, rebound, rigid Extremities exam: Present: normal inspection, full ROM, normal capillary refill. Absent: tenderness, pedal edema, joint swelling, calf tenderness Back exam: Present: normal inspection Neurological exam: Present: alert, oriented X3, CN II-XII intact Psychiatric exam: Present: normal affect, normal mood Skin exam: Present: warm, dry, intact, normal color. Absent: rash Course Vital Signs 09/04/18 09/04/18 09/04/18 09:02 09:28 09:30 Temperature 98.4 F Pulse Rate 122 H 128 H Respiratory 20 22 Rate Blood Pressure 144/86 O2 Sat by Pulse 98 Oximetry 09/04/18 09/04/18 09/04/18 09:38 10:10 11:10 Temperature 99.0 F Pulse Rate 128 H 127 H 125 H Respiratory 20 Rate Blood Pressure 144/88 O2 Sat by Pulse 97 Oximetry 09/04/18 11:21 Temperature Pulse Rate 124 H Respiratory Rate Blood Pressure O2 Sat by Pulse Oximetry - Reevaluation(s) Reevaluation #1: 09/04/18 10:08 secured entrance monitor: Indication for shortness of breath rule out dysrhythmia heart rate was 128 TN evaluation no evidence of atrial or ventricular ectopy noted. Reevaluation #2: 09/04/18 10:40 Reexamine the patient reveals less wheezing but still markedly diminished breath sounds he still feels somewhat short of breath enough feels much warmer with some diaphoresis. Reevaluation #3: 09/04/18 11:34 Patient did require additional updrafts as well as IV magnesium IV steroids. Also IV fluids patient will be admitted to Dr. Finney service. The case was discussed with Dr. Aguilar who is covering Medical Decision Making - Medical Decision Making Patient was not responding quickly to medications or rendered. Patient did develop a low-grade fever while in the emergency department he became diaphoretic. He did require repeat updraft. The presentation is consistent with a COPD exacerbation additionally a right infrahilar pneumonia. White blood cell count is within normal limits at this time. Patient will be admitted with IV antibiotics continued updraft treatments and IV steroids. He did receive magnesium supplementation - Lab Data Result diagrams: 09/04/18 09:15 09/04/18 09:15 Lab Results 09/04/18 09/04/18 09/04/18 Range/Units 09:15 09:15 09:15 WBC 3.3 L (3.8-10.6) k/uL RBC 3.88 L (4.30-5.90) m/uL Hgb 12.6 L (13.0-17.5) gm/dL Hct 37.5 L (39.0-53.0) % MCV 96.4 (80.0-100.0) fL MCH 32.4 (25.0-35.0) pg MCHC 33.6 (31.0-37.0) g/dL RDW 15.7 H (11.5-15.5) % Plt Count 128 L (150-450) k/uL Neutrophils % 60 % Lymphocytes % 27 % Monocytes % 10 % Eosinophils % 1 % Basophils % 1 % Neutrophils # 2.0 (1.3-7.7) k/uL Lymphocytes # 0.9 L (1.0-4.8) k/uL Monocytes # 0.3 (0-1.0) k/uL Eosinophils # 0.0 (0-0.7) k/uL Basophils # 0.0 (0-0.2) k/uL PT (9.0-12.0) sec INR (<1.2) APTT (22.0-30.0) sec Sodium 139 (137-145) mmol/L Potassium 4.1 (3.5-5.1) mmol/L Chloride 99 (98-107) mmol/L Carbon Dioxide 19 L (22-30) mmol/L Anion Gap 21 mmol/L BUN 13 (9-20) mg/dL Creatinine 0.57 L (0.66-1.25) mg/dL Est GFR (CKD-EPI)AfAm >90 (>60 ml/min/1.73 sqM) Est GFR (CKD-EPI)NonAf >90 (>60 ml/min/1.73 sqM) Glucose 126 H (74-99) mg/dL Calcium 9.1 (8.4-10.2) mg/dL Magnesium 1.5 L (1.6-2.3) mg/dL Total Bilirubin 1.0 (0.2-1.3) mg/dL AST 83 H (17-59) U/L ALT 40 (21-72) U/L Alkaline Phosphatase 128 H (38-126) U/L Creatine Kinase 159 (55-170) U/L Troponin I (0.000-0.034) ng/mL NT-Pro-B Natriuret Pep 33 pg/mL Total Protein 8.0 (6.3-8.2) g/dL Albumin 4.3 (3.5-5.0) g/dL Influenza Type A RNA (Not Detectd) Influenza Type B (PCR) (Not Detectd) 09/04/18 09/04/18 09/04/18 Range/Units 09:15 09:15 09:15 WBC (3.8-10.6) k/uL RBC (4.30-5.90) m/uL Hgb (13.0-17.5) gm/dL Hct (39.0-53.0) % MCV (80.0-100.0) fL MCH (25.0-35.0) pg MCHC (31.0-37.0) g/dL RDW (11.5-15.5) % Plt Count (150-450) k/uL Neutrophils % % Lymphocytes % % Monocytes % % Eosinophils % % Basophils % % Neutrophils # (1.3-7.7) k/uL Lymphocytes # (1.0-4.8) k/uL Monocytes # (0-1.0) k/uL Eosinophils # (0-0.7) k/uL Basophils # (0-0.2) k/uL PT 11.5 (9.0-12.0) sec INR 1.1 (<1.2) APTT 24.2 (22.0-30.0) sec Sodium (137-145) mmol/L Potassium (3.5-5.1) mmol/L Chloride (98-107) mmol/L Carbon Dioxide (22-30) mmol/L Anion Gap mmol/L BUN (9-20) mg/dL Creatinine (0.66-1.25) mg/dL Est GFR (CKD-EPI)AfAm (>60 ml/min/1.73 sqM) Est GFR (CKD-EPI)NonAf (>60 ml/min/1.73 sqM) Glucose (74-99) mg/dL Calcium (8.4-10.2) mg/dL Magnesium (1.6-2.3) mg/dL Total Bilirubin (0.2-1.3) mg/dL AST (17-59) U/L ALT (21-72) U/L Alkaline Phosphatase (38-126) U/L Creatine Kinase (55-170) U/L Troponin I <0.012 (0.000-0.034) ng/mL NT-Pro-B Natriuret Pep pg/mL Total Protein (6.3-8.2) g/dL Albumin (3.5-5.0) g/dL Influenza Type A RNA Not Detected (Not Detectd) Influenza Type B (PCR) Not Detected (Not Detectd) - EKG Data -: EKG Interpreted by Ma EKG shows normal: sinus rhythm Rate: tachycardia (Sinus tachycardia rate of 128 VA interval 148 QRS duration 76 QT since QTC 360/461 st-t wave changes) - Radiology Data Radiology results: report reviewed (I did review the imaging and report or is some evidence of a right infrahilar infiltrate developing ), image reviewed Critical Care Time Critical Care Time: Yes Critical Care Time: 31 minutes of critical care time which includes his presents with history physical labs x-rays discussed with paramedics with patient multiple reevaluation the patient to responsive therapy discussion with the admitting physician admission orders and documentation the above Disposition Clinical Impression: Pneumonia, COPD with exacerbation, Dehydration, Febrile illness, acute, Hypomagnesemia syndrome, Acute respiratory distress Disposition: ADMITTED IP TO THIS HOSP Condition: Fair Referrals: Yoon Phillips DO [Primary Care Provider] - 1-2 days
[2018-09-04 09:25] LABS: Basophils % (A) 1 %; Eosinophils % (A) 1 %; HCT 37.5 % (39.0-53.0); HGB 12.6 gm/dL (13.0-17.5); Lymphocytes # (A) 0.9 k/uL (1.0-4.8); Lymphocytes % (A) 27 %; MCH 32.4 pg (25.0-35.0); MCHC 33.6 g/dL (31.0-37.0); MCV 96.4 fL (80.0-100.0); Mean Platelet Volume 7.6; Monocytes # (A) 0.3 k/uL (0-1.0); Monocytes % (A) 10 %; Neutrophils % (A) 60 %; Platelet Count 128 k/uL (150-450); RBC 3.88 m/uL (4.30-5.90); RDW 15.7 % (11.5-15.5); WBC 3.3 k/uL (3.8-10.6)
--- NOTE | 2018-09-04 09:33 | XR ---
EXAMINATION TYPE: XR chest 2V DATE OF EXAM: 09/04/2018 COMPARISON: 08/25/2018 HISTORY: Shortness of breath TECHNIQUE: Frontal and lateral views of the chest are obtained. FINDINGS: Scattered senescent parenchymal changes noted. Hyperinflation compatible with COPD. Increased density right infrahilar region may reflect developing infiltrate and/or atelectasis. Corre late clinically. Heart size is stable. Mediastinal structures are stable and grossly unremarkable. No evidence for hilar prominence. Degenerative changes dorsal spine. IMPRESSION: 1. Increased density right infrahilar region may reflect developing infiltrate and/or atelectasis. Co rrelate clinically.
[2018-09-04 09:34] LABS: INR 1.1 (<1.2); Partial Thromboplastin Time 24.2 sec (22.0-30.0); Prothrombin Time 11.5 sec (9.0-12.0)
[2018-09-04 09:43] LABS: ALT 40 U/L (21-72); AST 83 U/L (17-59); Albumin 4.3 g/dL (3.5-5.0); Alkaline Phosphatase 128 U/L (38-126); Anion Gap 21 mmol/L; Blood Urea Nitrogen 13 mg/dL (9-20); Calcium 9.1 mg/dL (8.4-10.2); Carbon Dioxide 19 mmol/L (22-30); Chloride 99 mmol/L (98-107); Creatine Kinase 159 U/L (55-170); Glucose 126 mg/dL (74-99); Magnesium 1.5 mg/dL (1.6-2.3); Potassium 4.1 mmol/L (3.5-5.1); Sodium 139 mmol/L (137-145)
[2018-09-04] MEDS ORDERED: MAGNESIUM SULFATE-D5W PMX 1 GM in DEXTROSE/WATER 1 100ML.BAG IVPB ONE (10:09)
[2018-09-04] MEDS ORDERED: cefTRIAXone IN SWFI 1,000 MG/10 ML SYRINGE IVP STA (10:29)
[2018-09-04] MEDS ORDERED: PNEUMONIA PROTOCOL UTILIZED 1 EACH MISC PO PRN (11:41)
[2018-09-04] MEDS ORDERED: AZITHROMYCIN 500 MG in SODIUM CHLORIDE 0.9% 250 ML IVPB STA (11:41)
[2018-09-04] MEDS ORDERED: ONDANSETRON 4 MG/2 ML VIAL IVP STA (12:12)
[2018-09-04] MEDS ORDERED: LORazepam 2 MG/ML INJ IV STA (13:00)
--- NOTE | 2018-09-04 13:32 | CT ---
EXAMINATION TYPE: CT angio chest DATE OF EXAM: 09/04/2018 1:16 PM COMPARISON: 04/24/2018 HISTORY: Elevated d-dimer, possible pneumonia, COPD exacerbation CT DLP: 330.6 mGycm Automated exposure control for dose reduction was used. CONTRAST: CTA scan of the thorax is performed with IV Contrast, patient injected with 100 mL of Isovue 370, pul monary embolism protocol. There are 3-D post processed images.. FINDINGS: Thoracic aorta shows atheromatous change. There is no aneurysm or dissection. Thoracic aorta measures up to 2.5 cm. There is no mediastinal adenopathy. There are no hilar masses. There is normal contrast opacification of the pulmonary arteries. I see no filling defects. There is some spurring in the thoracic spine. There is 50% anterior wedging of T4 vertebral body. There is sandra e coarsening of the interstitial markings in the left lung more than the right. There is no evidence of a pulmonary mass. There is no pleural effusion. There is small hiatal hernia. IMPRESSION: NO EVIDENCE OF PULMONARY EMBOLISM. INTERSTITIAL PULMONARY INFILTRATES CONSISTENT WITH PULMONARY FIBRO SIS. UNCHANGED. OLD T4 COMPRESSION FRACTURE.
[2018-09-04] MEDS ORDERED: LORazepam 2 MG/ML INJ IV PRN ×2 (13:41)
[2018-09-04] MEDS ORDERED: THIAMINE 100 MG/ML 2 ML VIAL IM STA (13:41)
--- NOTE | 2018-09-04 13:41 | ED ---
Medical Decision Making - Medical Decision Making The patient continued be tachycardic with a mildly elevated d-dimer noted patient did have a history of PE in the left lung 2 years ago. CAT scan was ordered and is negative for any evidence of pulmonary embolus and. Additionally patient states he drank heavily about 4 days ago was having shakes some the symptoms he presents with a likely secondary to withdrawal he'll be placed on the alcohol withdrawal protocol. - Lab Data Result diagrams: 09/04/18 09:15 09/04/18 09:15 Lab Results 09/04/18 09/04/18 09/04/18 Range/Units 09:15 09:15 09:15 WBC 3.3 L (3.8-10.6) k/uL RBC 3.88 L (4.30-5.90) m/uL Hgb 12.6 L (13.0-17.5) gm/dL Hct 37.5 L (39.0-53.0) % MCV 96.4 (80.0-100.0) fL MCH 32.4 (25.0-35.0) pg MCHC 33.6 (31.0-37.0) g/dL RDW 15.7 H (11.5-15.5) % Plt Count 128 L (150-450) k/uL Neutrophils % 60 % Lymphocytes % 27 % Monocytes % 10 % Eosinophils % 1 % Basophils % 1 % Neutrophils # 2.0 (1.3-7.7) k/uL Lymphocytes # 0.9 L (1.0-4.8) k/uL Monocytes # 0.3 (0-1.0) k/uL Eosinophils # 0.0 (0-0.7) k/uL Basophils # 0.0 (0-0.2) k/uL PT (9.0-12.0) sec INR (<1.2) APTT (22.0-30.0) sec D-Dimer (<0.60) mg/L FEU Sodium 139 (137-145) mmol/L Potassium 4.1 (3.5-5.1) mmol/L Chloride 99 (98-107) mmol/L Carbon Dioxide 19 L (22-30) mmol/L Anion Gap 21 mmol/L BUN 13 (9-20) mg/dL Creatinine 0.57 L (0.66-1.25) mg/dL Est GFR (CKD-EPI)AfAm >90 (>60 ml/min/1.73 sqM) Est GFR (CKD-EPI)NonAf >90 (>60 ml/min/1.73 sqM) Glucose 126 H (74-99) mg/dL Calcium 9.1 (8.4-10.2) mg/dL Magnesium 1.5 L (1.6-2.3) mg/dL Total Bilirubin 1.0 (0.2-1.3) mg/dL AST 83 H (17-59) U/L ALT 40 (21-72) U/L Alkaline Phosphatase 128 H (38-126) U/L Creatine Kinase 159 (55-170) U/L Troponin I (0.000-0.034) ng/mL NT-Pro-B Natriuret Pep 33 pg/mL Total Protein 8.0 (6.3-8.2) g/dL Albumin 4.3 (3.5-5.0) g/dL Influenza Type A RNA (Not Detectd) Influenza Type B (PCR) (Not Detectd) 09/04/18 09/04/18 09/04/18 Range/Units 09:15 09:15 09:15 WBC (3.8-10.6) k/uL RBC (4.30-5.90) m/uL Hgb (13.0-17.5) gm/dL Hct (39.0-53.0) % MCV (80.0-100.0) fL MCH (25.0-35.0) pg MCHC (31.0-37.0) g/dL RDW (11.5-15.5) % Plt Count (150-450) k/uL Neutrophils % % Lymphocytes % % Monocytes % % Eosinophils % % Basophils % % Neutrophils # (1.3-7.7) k/uL Lymphocytes # (1.0-4.8) k/uL Monocytes # (0-1.0) k/uL Eosinophils # (0-0.7) k/uL Basophils # (0-0.2) k/uL PT 11.5 (9.0-12.0) sec INR 1.1 (<1.2) APTT 24.2 (22.0-30.0) sec D-Dimer (<0.60) mg/L FEU Sodium (137-145) mmol/L Potassium (3.5-5.1) mmol/L Chloride (98-107) mmol/L Carbon Dioxide (22-30) mmol/L Anion Gap mmol/L BUN (9-20) mg/dL Creatinine (0.66-1.25) mg/dL Est GFR (CKD-EPI)AfAm (>60 ml/min/1.73 sqM) Est GFR (CKD-EPI)NonAf (>60 ml/min/1.73 sqM) Glucose (74-99) mg/dL Calcium (8.4-10.2) mg/dL Magnesium (1.6-2.3) mg/dL Total Bilirubin (0.2-1.3) mg/dL AST (17-59) U/L ALT (21-72) U/L Alkaline Phosphatase (38-126) U/L Creatine Kinase (55-170) U/L Troponin I <0.012 (0.000-0.034) ng/mL NT-Pro-B Natriuret Pep pg/mL Total Protein (6.3-8.2) g/dL Albumin (3.5-5.0) g/dL Influenza Type A RNA Not Detected (Not Detectd) Influenza Type B (PCR) Not Detected (Not Detectd) 09/04/18 Range/Units 09:15 WBC (3.8-10.6) k/uL RBC (4.30-5.90) m/uL Hgb (13.0-17.5) gm/dL Hct (39.0-53.0) % MCV (80.0-100.0) fL MCH (25.0-35.0) pg MCHC (31.0-37.0) g/dL RDW (11.5-15.5) % Plt Count (150-450) k/uL Neutrophils % % Lymphocytes % % Monocytes % % Eosinophils % % Basophils % % Neutrophils # (1.3-7.7) k/uL Lymphocytes # (1.0-4.8) k/uL Monocytes # (0-1.0) k/uL Eosinophils # (0-0.7) k/uL Basophils # (0-0.2) k/uL PT (9.0-12.0) sec INR (<1.2) APTT (22.0-30.0) sec D-Dimer 0.83 H (<0.60) mg/L FEU Sodium (137-145) mmol/L Potassium (3.5-5.1) mmol/L Chloride (98-107) mmol/L Carbon Dioxide (22-30) mmol/L Anion Gap mmol/L BUN (9-20) mg/dL Creatinine (0.66-1.25) mg/dL Est GFR (CKD-EPI)AfAm (>60 ml/min/1.73 sqM) Est GFR (CKD-EPI)NonAf (>60 ml/min/1.73 sqM) Glucose (74-99) mg/dL Calcium (8.4-10.2) mg/dL Magnesium (1.6-2.3) mg/dL Total Bilirubin (0.2-1.3) mg/dL AST (17-59) U/L ALT (21-72) U/L Alkaline Phosphatase (38-126) U/L Creatine Kinase (55-170) U/L Troponin I (0.000-0.034) ng/mL NT-Pro-B Natriuret Pep pg/mL Total Protein (6.3-8.2) g/dL Albumin (3.5-5.0) g/dL Influenza Type A RNA (Not Detectd) Influenza Type B (PCR) (Not Detectd) Disposition Clinical Impression: Pneumonia, COPD with exacerbation, Dehydration, Febrile illness, acute, Hypomagnesemia syndrome, Acute respiratory distress, Alcohol withdrawal, Tachycardia Disposition: ADMITTED IP TO THIS HOSP Condition: Fair
[2018-09-04 16:43] VITALS: BMI 26.7
[2018-09-04] MEDS: IPRATROPIUM-ALBUTEROL 3 ML NEB INHALATION SCH ×3 (17:00→21:02)
[2018-09-04] MEDS: LORazepam 2 MG/ML INJ IV PRN ×3 (17:03→22:21)
[2018-09-04 17:07] LABS: Glucose,Whole Blood 210 mg/dL (75-99)
[2018-09-04] MEDS: methylPREDNISolone SOD SUCCI 125 MG/2 ML VIAL IV SCH ×3 (17:11→23:49)
[2018-09-04] MEDS: THIAMINE 100 MG TAB PO SCH (17:12)
[2018-09-04] MEDS: INSULIN ASPART (NovoLOG) 100 UNIT/ML VIAL SQ SCH ×2 (17:23→20:04)
[2018-09-04] MEDS: FAMOTIDINE 20 MG TAB PO SCH (19:55)
[2018-09-04] MEDS: MAGNESIUM OXIDE 400 MG TAB PO SCH (19:55)
[2018-09-04] MEDS: cloNIDine HCL 0.1 MG TAB PO SCH (19:55)
[2018-09-04 20:30] LABS: Glucose,Whole Blood 214 mg/dL (75-99)
[2018-09-04] MEDS ORDERED: IPRATROPIUM-ALBUTEROL 3 ML NEB INHALATION PRN (21:11)
[2018-09-05] MEDS: LORazepam 2 MG/ML INJ IV PRN ×4 (00:37→08:38)
[2018-09-05] MEDS: methylPREDNISolone SOD SUCCI 125 MG/2 ML VIAL IV SCH ×2 (05:42→11:19)
[2018-09-05 07:23] LABS: Glucose,Whole Blood 147 mg/dL (75-99)
[2018-09-05] MEDS: THIAMINE 100 MG TAB PO SCH ×2 (07:45→16:40)
[2018-09-05] MEDS: FERROUS SULFATE 325 MG TAB PO SCH (07:45)
[2018-09-05] MEDS: cloNIDine HCL 0.1 MG TAB PO SCH ×2 (07:45→21:15)
[2018-09-05] MEDS: AZITHROMYCIN 500 MG TAB PO SCH (07:45)
[2018-09-05] MEDS: FAMOTIDINE 20 MG TAB PO SCH ×2 (07:45→21:15)
[2018-09-05] MEDS: INSULIN ASPART (NovoLOG) 100 UNIT/ML VIAL SQ SCH ×4 (07:46→21:15)
[2018-09-05] MEDS: IPRATROPIUM-ALBUTEROL 3 ML NEB INHALATION SCH ×4 (07:52→19:53)
--- NOTE | 2018-09-05 08:23 | XR ---
EXAMINATION TYPE: XR chest 2V DATE OF EXAM: 09/05/2018 COMPARISON: Prior chest x-ray 09/04/2018 HISTORY: Pneumonia TECHNIQUE: Frontal and lateral views of the chest are obtained. FINDINGS: Patient is rotated, there may be scoliosis. No evident pneumothorax or pleural effusion. H eart size is stable. Aorta is dense. Interstitium is increased. Patchy basilar density is again noted on the left, suspect volume loss in the left hemithorax. IMPRESSION: There may be basilar atelectasis, correlate to exclude pneumonia. There is some underlyi ng interstitial lung disease. Aortic ectasia is present.
[2018-09-05] MEDS ORDERED: THIAMINE MONONITRATE (VIT B1) 100 MG TABLET PO SCH (09:00)
[2018-09-05 11:32] LABS: Hemoglobin A1C 5.9 % (4.0-6.0)
[2018-09-05 12:03] LABS: Glucose,Whole Blood 243 mg/dL (75-99)
--- NOTE | 2018-09-05 13:51 | P.HPIM ---
History of Present Illness H&P Date: 09/05/18 Anders Aguilar is a 63-year-old male who presented to [facility] emergency room with a chief complaint of worsening shortness of breath, chest tightness, and acute tremors. Patient called EMS and was brought into emergency room, he was evaluated in ER d-dimer was slightly elevated he underwent computed tomography scan angiogram of the chest that was negative for any evidence of pulmonary embolism, EKG and troponin level were within normal limits chest x-ray was positive for increased density in the right infrahilar region suggestive of pneumonia. Patient was started on IV antibiotic Rocephin and Zithromax and was admitted to medical floor. Patient states that he started having severe tremors home, when EMS personnel came to pick him up, on presentation he was started on seizure precautions, EEG was ordered. Patient has known history of excessive alcohol use with previous admission for alcohol withdrawal, he was started on CIWA protocol. Patient was seen and examined on 09/05/2018 in a.m. he was alert and oriented 3 in no apparent distress lying comfortably in bed there was no fever or chills no headache or dizziness patient had occasional cough no chest pain no shortness of breath at rest no nausea or vomiting no abdominal pain no diarrhea and no urinary symptoms. Past Medical History Past Medical History: Atrial Fibrillation, Cancer, Chest Pain / Angina, COPD, CVA/TIA, Diabetes Mellitus, GERD/Reflux, GI Bleed, Hyperlipidemia, Hypertension, Pneumonia, Prostate Disorder, Pulmonary Embolus (PE) Additional Past Medical History / Comment(s): tachycardia/palpitations likely d/t alcohol withdrawal. hx of Alcoholism, chronic alcoholic cirrhosis with portal hypertension and previous history of upper and lower GI bleeding, esophageal varices, previous history of childhood seizure which he outgrew not taking any antiepileptic medication-possibly had recent seizure-2017 thought d/t alcohol withdrawal, pulmonary embolism x 2 R lung, TIA, diverticulosis, chronic lower bilateral extremity ankle edema if he walks alot, previous history of septicemia, cervical disc disease with chronic back pain with r sided sciatica, degenerative arthritis involving the lower back, tinnitus, vitamin D deficiency, iron anemia, chronic thrombocytopenia, denies MRSA, C-DIFF -2018, scoliosis. pt had radiation 04/28 for prostate cancer History of Any Multi-Drug Resistant Organisms: C-DIFF, MRSA Date of last positivie culture/infection: N/A MDRO Source:: STOOL Past Surgical History: Appendectomy, Cholecystectomy Additional Past Surgical History / Comment(s): EGDs/esophageal varicies bandings, colonoscopies. Past Anesthesia/Blood Transfusion Reactions: No Reported Reaction Additional Past Anesthesia/Blood Transfusion Reaction / Comment(s): after appendix removed sob Past Psychological History: Anxiety, Depression Additional Psychological History / Comment(s): Pt lives in an apartment alone. Apartment complex has front door ramp and has an elevator. no pets. Sometimes his sister stays with him and cleans his home. He uses a cane to ambulate at times. He drives but currently has no car. He gets to [facility] by [employer] bus. He has a nebulizer and a glucometer.pt stated he was getting [facility] home care nurse but has'nt seen them in few days,not sure if they're still coming. Used to work in [employer]. Relates that he's not been a smoker. Denies recreational drug use. His left him many years ago he has adult children that he does not see very often. No experience. No travel history. No animal exposures Smoking Status: Never smoker Past Alcohol Use History: Abuse, Daily Additional Past Alcohol Use History / Comment(s): Pt states that normally he drinks 2-3 large beers per day but 05-22-18 he drank a 5th of vodka, reports 1/5 vodka every 2 days 08/2018 Past Drug Use History: None Reported - Past Family History Mother Family Medical History: COPD, CVA/TIA, Dementia Additional Family Medical History / Comment(s): from a stroke Father Family Medical History: Pneumonia Additional Family Medical History / Comment(s): Father of pneumonia when he was close to 80 yrs old. Medications and Allergies Home Medications Medication Instructions Recorded Confirmed Type cloNIDine HCL [Catapres] 0.1 mg PO BID #60 tab 03/26/18 09/04/18 Rx Ferrous Sulfate [Iron (65 MG 325 mg PO DAILY 04/24/18 09/04/18 History Elemental)] Magnesium Oxide [Mag-Ox] 400 mg PO HS 04/24/18 09/04/18 History Thiamine Mononitrate (Vit B1) 100 mg PO DAILY 06/21/18 09/04/18 History [Vitamin B-1] Famotidine [Pepcid] 20 mg PO BID 08/23/18 09/04/18 History amLODIPine [Norvasc] 5 mg PO BID 08/25/18 09/04/18 History Allergies Allergy/AdvReac Type Severity Reaction Status Date / Time adhesive tape Allergy Rash/Hives Verified 09/04/18 16:08 latex Allergy Unknown Verified 09/04/18 16:08 egg AdvReac Nausea & Verified 09/04/18 16:08 Vomiting lisinopril AdvReac EYES Verified 09/04/18 16:08 BURN&ITCH/WEAKNESS tomato AdvReac Nausea & Verified 09/04/18 16:08 Vomiting & Diarrhea Physical Exam Vitals: Vital Signs Temp Pulse Pulse Resp BP BP Pulse Ox 09/05/18 11:25 96 09/05/18 11:17 100 09/05/18 08:01 104 H 09/05/18 07:53 96 09/05/18 07:47 97.5 F L 96 16 157/88 97 09/05/18 03:41 16 09/05/18 01:41 98.1 F 96 16 145/84 96 09/05/18 00:30 18 09/04/18 21:09 116 H 09/04/18 21:03 114 H 09/04/18 20:15 98.5 F 122 H 16 152/82 95 09/04/18 19:35 118 H 16 09/04/18 17:14 112 H 09/04/18 17:02 104 H 09/04/18 15:00 98.7 F 127 H 12 142/81 94 L 09/04/18 14:00 98.9 F 127 H 20 156/95 97 Intake and Output 09/04/18 09/05/18 09/05/18 22:59 06:59 14:59 Intake Total 1390 Balance 1390 Intake: Intake, IV Titration 800 Amount Sodium Chloride 0.9% 1, 800 000 ml @ 100 mls/hr IV . Q10H STA Rx#:[id number] Oral 590 Other: Voiding Method Toilet # Voids 1 2 2 # Bowel Movements 1 In general patient is alert and oriented 3 in no apparent distress HEENT head normocephalic and atraumatic Neck is supple no JVD no goiter no lymphadenopathy Chest exam reveals a few scattered crackles bilaterally no wheezing Cardiac exam reveals regular heart sounds S1 and S2 no gallops no murmurs Abdomen is soft nontender no organomegaly with normal bowel sounds Extremity exam reveals no edema no cyanosis or clubbing Neurological examination reveals no gross focal deficit Results CBC & Chem 7: 09/04/18 09:15 09/04/18 09:15 Labs: Abnormal Lab Results - Last 24 Hours (Table) 09/04/18 09/04/18 09/05/18 Range/Units 16:50 20:00 07:11 POC Glucose (mg/dL) 210 H 214 H 147 H (75-99) mg/dL 09/05/18 Range/Units 11:50 POC Glucose (mg/dL) 243 H (75-99) mg/dL Microbiology - Last 24 Hours (Table) 09/04/18 10:30 Blood Culture - Preliminary Blood No Growth after 24 hours Thrombosis Risk Factor Assmnt - Choose All That Apply Any of the Below Risk Factors Present?: Yes Each Factor Represents 1 point: Abnormal pulmonary function (COPD) Other Risk Factors: Yes Each Risk Factor Represents 2 Points: Age 61-74 years Each Risk Factor Represents 3 Points: History of DVT/PE Other congenital or acquired thrombophilia - If yes, enter type in comment: No Thrombosis Risk Factor Assessment Total Risk Factor Score: 6 Thrombosis Risk Factor Assessment Level: High Risk Assessment and Plan Plan: #1 right infrahilar density suggestive of pneumonia patient was started on IV Rocephin and IV Zithromax pulmonary consultation was requested #2 history of alcohol overuse, patient states that he stopped drinking 5 days ago, he had severe tremors at home, he was started on CIWA protocol. #3 underlying history of liver cirrhosis with portal hypertension and esophageal phalanxes #4 previous history of paroxysmal atrial fibrillation not on anticoagulation due to history of bleeding from esophageal varices #5 underlying history of COPD was evidence of exacerbation #6 history of Clostridium difficile colitis, C. diff toxin was checked on presentation and was negative #7 electrolyte imbalance, with hypomagnesemia correcting #8 mild elevation in liver enzymes will monitor. At this time patient is admitted to medical floor he was started on seizure precaution in the emergency room Will check EEG Patient was started on IV Rocephin and IV Zithromax or right infrahilar infiltrate Will monitor chest x-ray and clinical response Pulmonary consultation requested Patient had chest tightness on presentation EKG and 1 troponin level was normal He was admitted to [facility] recently at that time he had chest tightness and had 3 sets of negative troponin and an echocardiogram at that time cardiology consultation did not recommend any further evaluation Will consult cardiology again Will follow during this admission for medical management Please see orders
[2018-09-05] MEDS ORDERED: methylPREDNISolone 4 MG TAB PO ONE (16:30)
[2018-09-05 17:00] LABS: Glucose,Whole Blood 113 mg/dL (75-99)
--- NOTE | 2018-09-05 18:46 | CONS ---
CONSULTATION REASON FOR CONSULTATION: Pneumonia. This is a pulmonary/critical care consultation. This is a 63-year-old male with a history of COPD/asthma, who apparently presented to the emergency department via EMS for complaints of cough and shortness of breath. He apparently was initially coughing up a bit of phlegm. Currently now the cough is mostly dry. He apparently also had some nausea without vomiting and he did feel warm, but apparently had no chills or sweats. Again, initially he was coughing up some white phlegm, but now he is not coughing up anything at all. He tried using his breathing medication at home, but despite that, it did not really help. He had complaints of lots of chest tightness. Anyway, the patient was seen in the emergency room and apparently admitted with a diagnosis of pneumonia. The patient has been seen by us in the past. Apparently, the last time he was in the hospital, he had C difficile colitis. PRIMARY CARE PHYSICIAN: Dr. Yoon Phillips. Currently doing reasonably well. Feeling a bit better today than he was yesterday. HOME MEDICATIONS: Include iron, magnesium oxide, thiamine, vitamin B1, Pepcid, Norvasc, and clonidine. ALLERGIES: INCLUDE ADHESIVE TAPE, LATEX, EGGS, LISINOPRIL, AND TOMATO. MEDICAL HISTORY: Atrial fibrillation, chest pain/angina, COPD/asthma, CVA, diabetes mellitus, gastroesophageal reflux disease, GI bleed, hyperlipidemia, hypertension, pneumonia, and pulmonary embolism. He does have a history of chronic alcohol abuse and alcoholism as well as alcoholic cirrhosis with portal hypertension and previous history of both upper and lower GI bleeds. He does also have a history of esophageal varices. He did have seizures as a child. He has had pulmonary embolism x2 and TIA as well as diverticulosis and sciatica. He does also suffer from vitamin D deficiency, iron deficiency anemia, and chronic low platelet counts. He does have a history of prostate cancer as well and had radiation treatments for that. SURGICAL HISTORY: Includes among other things appendectomy, cholecystectomy, EGD and banding of esophageal varices as well as colonoscopy. SOCIAL HISTORY: Negative for tobacco use. He apparently grew up with lots of individuals who did smoke and that is what explains his underlying COPD/asthma. I do not believe we have ever seen him in the office and he has never had pulmonary function testing in our office. Other important social history includes previous history of heavy alcohol use/abuse. He apparently still drinks about 2-3 large beers per day and has drank large quantities of vodka in the past. Denies any illicit drug use. FAMILY HISTORY: Positive for dementia, COPD, CVA, and pneumonia. REVIEW OF SYSTEMS: CONSTITUTIONAL: Negative. NEUROLOGIC negative. HEENT negative. CARDIOVASCULAR negative. PULMONARY: Shortness of breath, cough, mostly nonproductive. Chest congestion tightness and shortness of breath. GI nausea without emesis. : Negative. RHEUMATOLOGIC: Negative. ENDOCRINOLOGIC: Negative. IMMUNOLOGICAL: Negative. DERMATOLOGICAL: Negative. PHYSICAL EXAMINATION: VITAL SIGNS: Current vital signs are reviewed. Temperature 97.9, heart rate 92, respiratory rate 16, blood pressure 124/72, mean 89, room air saturation 96%. Appears in no acute distress. HEENT examination is grossly unremarkable. Mucous membranes are moist. He is not wearing any nasal O2. NECK: Supple. Full range of motion. No adenopathy or thyromegaly. Neck veins are flat. Cardiovascular examination reveals regular rhythm rate. Heart rate about 88 beats per minute. S1, S2 normal. There is no murmur. LUNGS: Mostly clear breath sounds. A few scattered mild rhonchi. No wheezes or crackles. Breath sounds equal bilaterally. ABDOMEN: Soft. Bowel sounds are heard. Extremities are intact. No significant cyanosis, clubbing, or edema. Skin without rash. Brief neurologic examination is nonfocal. The patient has had 2 x-rays and a CT scan of the chest since he has been here. The chest x-ray shows a possible right infrahilar region infiltrate or density. CT angiogram reveals no evidence of pulmonary embolism. There is some diffuse interstitial infiltrates consistent with some underlying pulmonary fibrosis. There is a T4 compression fracture, which is unchanged. No evidence of any acute abnormality on CT angiogram. There is also another chest x-ray done from today which shows some minimal atelectasis. I do not believe there is any iveth pneumonia at this time. LABS: Reviewed. White count 3.3, hemoglobin 12.6, hematocrit 37.5, platelet count 128,000. PT/INR PTT normal. D-dimer 0.83. Sodium, potassium normal, chloride 99, CO2 of 19, anion gap is 21, BUN and creatinine were 13 and 0.57, glucose 126, magnesium 1.5, AST 83, ALT 40, alkaline phosphatase 128. Influenza A and B studies were negative. C diff studies were negative. N terminal proBNP was 33. Medications are reviewed. The patient is currently on Zithromax 500 mg a day, Rocephin 1 g every day and updrafts. He is also on corticosteroids, which I do not believe he needs and will be discontinued. Other medications are appropriate. ASSESSMENT: 1. Possible mild purulent tracheobronchitis with bronchospasm versus bronchopneumonia, former favored over latter. 2. Possible underlying chronic obstructive pulmonary disease, although the patient never smoked, he apparently states that his underlying chronic obstructive pulmonary disease is from secondhand smoke inhalation from other family members. 3. Anion gap metabolic acidosis of unclear etiology, rule out mild lactic acidemia. 4. History of gastroesophageal reflux disease. 5. History of atrial fibrillation. 6. History of alcoholic liver disease. 7. History of pulmonary embolism. 8. Prostate cancer, status post radiation therapy. 9. History of diabetes mellitus. 10.History of gastrointestinal bleed. 11.Hyperlipidemia. 12.History of hypertension. 13.History of multiple other medical problems and comorbidities. PLAN: The patient really looks quite stable. He is not having any respiratory distress. He has no audible wheezing, conversational dyspnea or use of accessory muscles. He is not requiring any supplemental oxygen. I think the patient can be treated conservatively with a Medrol Dosepak, some oral antibiotics and some breathing treatments. Additional recommendations and suggestions are forthcoming. Prognosis is guarded given his multitude of other medical problems. Please see my recommendations and my orders. Will continue to follow. Likely discharge soon. MMODL / IJN: [id number] /
[2018-09-05 20:39] LABS: Glucose,Whole Blood 154 mg/dL (75-99)
[2018-09-05] MEDS: MAGNESIUM OXIDE 400 MG TAB PO SCH (21:15)
[2018-09-06 02:04] LABS: Glucose,Whole Blood 159 mg/dL (75-99)
[2018-09-06] MEDS: LORazepam 2 MG/ML INJ IV PRN (02:22)
[2018-09-06] MEDS: IPRATROPIUM-ALBUTEROL 3 ML NEB INHALATION SCH ×4 (06:53→20:53)
[2018-09-06] MEDS: INSULIN ASPART (NovoLOG) 100 UNIT/ML VIAL SQ SCH ×4 (07:09→21:15)
[2018-09-06] MEDS: FAMOTIDINE 20 MG TAB PO SCH ×2 (07:10→21:15)
[2018-09-06] MEDS: THIAMINE 100 MG TAB PO SCH ×2 (07:10→15:28)
[2018-09-06] MEDS: MULTIVITAMINS, THERA 1 EACH TAB PO SCH (07:10)
[2018-09-06] MEDS: FERROUS SULFATE 325 MG TAB PO SCH (07:10)
[2018-09-06] MEDS: AZITHROMYCIN 500 MG TAB PO SCH (07:10)
[2018-09-06] MEDS: cloNIDine HCL 0.1 MG TAB PO SCH ×2 (07:11→21:15)
[2018-09-06] MEDS: methylPREDNISolone 4 MG TAB TAPER PO SCH (07:11)
[2018-09-06 07:25] LABS: Glucose,Whole Blood 126 mg/dL (75-99)
[2018-09-06 11:23] LABS: ALT 27 U/L (21-72); AST 70 U/L (17-59); Albumin 3.8 g/dL (3.5-5.0); Alkaline Phosphatase 71 U/L (38-126); Anion Gap 10 mmol/L; Blood Urea Nitrogen 16 mg/dL (9-20); Calcium 8.9 mg/dL (8.4-10.2); Carbon Dioxide 23 mmol/L (22-30); Chloride 103 mmol/L (98-107); Glucose 200 mg/dL (74-99); Magnesium 1.8 mg/dL (1.6-2.3); Sodium 136 mmol/L (137-145); Total Bilirubin 1.2 mg/dL (0.2-1.3); Total Protein 7.8 g/dL (6.3-8.2)
[2018-09-06 11:24] LABS: Basophils % (A) 0 %; Eosinophils # (A) 0.1 k/uL (0-0.7); Eosinophils % (A) 1 %; HCT 40.5 % (39.0-53.0); HGB 13.1 gm/dL (13.0-17.5); Lymphocytes # (A) 0.3 k/uL (1.0-4.8); Lymphocytes % (A) 4 %; MCH 31.6 pg (25.0-35.0); MCHC 32.3 g/dL (31.0-37.0); MCV 97.6 fL (80.0-100.0); Mean Platelet Volume 10.1; Monocytes # (A) 0.3 k/uL (0-1.0); Monocytes % (A) 5 %; Neutrophils # (A) 6.7 k/uL (1.3-7.7); Neutrophils % (A) 90 %; Platelet Count 110 k/uL (150-450); RBC 4.14 m/uL (4.30-5.90); RDW 15.6 % (11.5-15.5); WBC 7.4 k/uL (3.8-10.6)
[2018-09-06 11:34] LABS: Potassium 4.7 mmol/L (3.5-5.1)
--- NOTE | 2018-09-06 11:37 | P.PN ---
Subjective Progress Note Date: 09/06/18 Principal diagnosis: Mild purulent tracheobronchitis with bronchospasm On 09/06/2016 patient seen in follow-up on medical surgical floor. He is resting comfortably in bed, he is on room air, his lungs are relatively clear, no rhonchi, no wheezes, room air pulse ox is 98%, hemodynamically stable, respirations are even and nonlabored, patient does get dyspneic with ambulation, but otherwise no distress. His labs have been noted, white blood cell count 7.4, hemoglobin is 13.1, no BMP was done. No acute events overnight, no specific complaints. Mild headache, no fever or chills Objective - Vital Signs Vital signs: Vital Signs Temp 98.1 F 09/06/18 05:35 Pulse 80 09/06/18 07:06 Resp 20 09/06/18 05:35 BP 117/65 09/06/18 05:35 Pulse Ox 97 09/06/18 06:55 Intake & Output 09/05/18 09/06/18 09/06/18 18:59 06:59 18:59 Other: Voiding Method Toilet Toilet # Voids 2 2 3 - Exam GENERAL EXAM: Alert, pleasant, 63-year-old white male, comfortable in no apparent distress. HEAD: Normocephalic/atraumatic. EYES: Normal reaction of pupils, equal size. Conjunctiva pink, sclera white. NOSE: Clear with pink turbinates. THROAT: No erythema or exudates. NECK: No masses, no JVD, no thyroid enlargement, no adenopathy. CHEST: No chest wall deformity. Symmetrical expansion. LUNGS: Equal air entry with no crackles, wheeze, rhonchi or dullness. CVS: Regular rate and rhythm, normal S1 and S2, no gallops, no murmurs, no rubs ABDOMEN: Soft, nontender. No hepatosplenomegaly, normal bowel sounds, no guarding or rigidity. EXTREMITIES: No clubbing, no edema, no cyanosis, 2+ pulses and upper and lower extremities. MUSCULOSKELETAL: Muscle strength and tone normal. SPINE: No scoliosis or deformity SKIN: No rashes CENTRAL NERVOUS SYSTEM: Alert and oriented -3. No focal deficits, tone is normal in all 4 extremities. PSYCHIATRIC: Alert and oriented -3. Appropriate affect. Intact judgment and insight. - Labs CBC & Chem 7: 04/23/19 10:47 09/04/18 09:15 Labs: Abnormal Lab Results - Last 24 Hours (Table) 09/05/18 09/05/18 09/05/18 Range/Units 11:50 16:20 16:58 RBC (4.30-5.90) m/uL RDW (11.5-15.5) % Plt Count (150-450) k/uL Lymphocytes # (1.0-4.8) k/uL POC Glucose (mg/dL) 243 H 113 H (75-99) mg/dL Plasma Lactic Acid Hitesh 2.1 H* (0.7-2.0) mmol/L 09/05/18 09/05/18 09/06/18 Range/Units 20:05 20:38 02:02 RBC (4.30-5.90) m/uL RDW (11.5-15.5) % Plt Count (150-450) k/uL Lymphocytes # (1.0-4.8) k/uL POC Glucose (mg/dL) 154 H 159 H (75-99) mg/dL Plasma Lactic Acid Hitesh 2.2 H* (0.7-2.0) mmol/L 09/06/18 09/06/18 Range/Units 06:59 10:47 RBC 4.14 L (4.30-5.90) m/uL RDW 15.6 H (11.5-15.5) % Plt Count 110 L (150-450) k/uL Lymphocytes # 0.3 L (1.0-4.8) k/uL POC Glucose (mg/dL) 126 H (75-99) mg/dL Plasma Lactic Acid Hitesh (0.7-2.0) mmol/L Microbiology - Last 24 Hours (Table) 09/04/18 10:30 Blood Culture - Preliminary Blood No Growth after 24 hours Assessment and Plan Plan: Assessment: #1. Mild purulent tracheobronchitis with bronchospasm, less likely bronchopneumonia #2. Stable chronic obstructive pulmonary disease, with history of secondhand smoke exposure from her family members #3. Anion gap metabolic acidosis of unclear etiology, mild lactic acidemia #4. History of gastroesophageal reflux disease #5. History of atrial fibrillation #6. History of alcoholic liver disease #7. History of pulmonary embolism #8. Prostate cancer, status post radiation therapy #9. Diabetes mellitus #10. History of GI bleeding #11. Hypertention, hyperlipidemia #12. EtOH abuse Plan: Patient is stable, from pulmonary perspective patient could be considered for discharge home today, vital signs are stable, no fever or chills, no significant cough, chest congestion or wheezing. I performed a history & physical examination of the patient and discussed their management with my nurse practitioner, Aline Collins. I reviewed the nurse practitioner's note and agree with the documented findings and plan of care. Lung sounds are positive for clear breath sounds. The findings and the impression was discussed with the patient. I attest to the documentation by the nurse practitioner. Time with Patient: Less than 30
[2018-09-06 12:05] LABS: Glucose,Whole Blood 137 mg/dL (75-99)
--- NOTE | 2018-09-06 13:25 | P.CRDCN ---
History of Present Illness History of present illness: This is a pleasant 63-year-old male past medical history significant for COPD, paroxysmal atrial fibrillation not on snf anticoagulation secondary to esophageal varices, diabetes mellitus, hypertension, dyslipidemia and chronic alcohol use. He has no prior documented history of coronary artery disease. We've been asked to see him in consultation secondary to chest tight ness. She presented to the hospital 2 days ago with symptoms of alcohol withdrawal. He states it has been 5 days since his last drink and he felt extremely shaky and anxious and was short of breath. He has been diagnosed with pneumonia and bronchitis. He states he gets tightness in the chest in the mid- sternal region that is worse with cough or deep inspiration. EKG on admission reveals sinus tachycardia heart rate of 128. Chest x-ray reveals an increased density in the right infrahilar region suggestive of developing infiltrate or atelectasis. Repeat chest x-ray yesterday reveals underlying interstitial lung disease, basilar atelectasis and an ectatic aorta. CTA chest performed. His re veals no evidence of pulmonary embolism with interstitial pulmonary infiltrates consistent with pulmonary fibrosis, unchanged from previous. Laboratory data reviewed, WBC 7.4, hemoglobin 13.1, platelets 110, sodium 136, potassium 4.7, creatinine 0.53, magnesium 1.8, cardiac enzymes negative 2, lactic acid 2.2, and NTproBNP 33. He is currently receiving steroids and antibiotics along with updraft breathing treatments. Current cardiac medications include clonidine 0.1 mg twice a day and amlodipine 5 mg twice a day. Most recent stress test performed November 2017 was a dobutamine stress echocardiogram that was negative for stress-induced ischemia. He was recently here in the hospital with similar type presentation diagnosed with pneumonia complaining of chest tightness and at that time underwent an echocardiogram revealing preserved left ventricular systolic function with ejection fraction 55%. At the time of my exam: CONSTITUTIONAL: Denies fever. Denies chills. EYES: Denies blurred vision. Denies vision changes. Denies eye pain. EARS, NOSE, MOUTH & THROAT: Denies headache. Denies sore throat. Denies ear pain. CARDIOVASCULAR: Complains of pleuritic chest pain. Complains of shortness of breath. Denies orthopnea. Denies PND. Denies palpitations. RESPIRATORY: Denies cough. GASTROINTESTINAL: Denies abdominal pain. Denies diarrhea. Denies constipation. Denies nausea. Denies vomiting. MUSCULOSKELETAL: Denies myalgias. INTEGUMENTARY: Denies pruitis. Denies rash. NEUROLOGIC: Denies numbness. Denies tingling. Denies weakness. PSYCHIATRIC: Denies anxiety. Denies depression. ENDOCRINE: Denies fatigue. Denies weight change. Denies polydipsia. Denies polyurina. GENITOURINARY: Denies burning, hematuria or urgency with micturation. HEMATOLOGIC: Denies history of anemia. Denies bleeding. Blood pressure 117/65 heart rate 81 afebrile maintaining oxygen saturation on room air GENERAL: This is a 63-year-old male in no apparent distress at the time of my examination. HEENT: Head is atraumatic, normocephalic. Pupils are equal, round. Sclerae anicteric. Conjunctivae are clear. Mucous membranes of the mouth are moist. Neck is supple. There is no jugular venous distention. No carotid bruit is heard. LUNGS: Coarse rales at the left lung base, no wheezes or rhonchi. No chest wall tenderness is noted on palpation or with deep breathing. HEART: Regular rate and rhythm without murmurs, rubs or gallops. S1 and S2 heard. ABDOMEN: Soft, nontender. Bowel sounds are heard. No organomegaly noted. EXTREMITIES: No evidence of peripheral edema and no calf tenderness noted. VASCULAR: Radial and dorsalis pedis pulses palpated, no evidence of clubbing. NEUROLOGIC: Patient is awake, alert and oriented x3. ASSESSMENT Chest pain, atypical for angina. An acute event has been ruled out. Recent stress test within the previous one year is unremarkable symptoms are more pleuritic suggestive of possible musculoskeletal strain. Acute alcohol withdrawal Hypomagnesemia Interstitial lung disease Hypertension Chronic alcohol dependence History of noncompliance PLAN An acute coronary event has been ruled out. Ongoing management of interstitial lung disease per primary care and pulmonary team. Overall stable from a cardiac perspective. Follow-up in the office in 2 weeks. Thank you kindly for this consultation. Nurse Practitioner note has been reviewed, I agree with a documented findings and plan of care. Patient was seen and examined. Past Medical History Past Medical History: Atrial Fibrillation, Cancer, Chest Pain / Angina, COPD, CVA/TIA, Diabetes Mellitus, GERD/Reflux, GI Bleed, Hyperlipidemia, Hypertension, Pneumonia, Prostate Disorder, Pulmonary Embolus (PE) Additional Past Medical History / Comment(s): tachycardia/palpitations likely d/t alcohol withdrawal. hx of Alcoholism, chronic alcoholic cirrhosis with portal hypertension and previous history of upper and lower GI bleeding, esophageal varices, previous history of childhood seizure which he outgrew not taking any antiepileptic medication-possibly had recent seizure-2018 thought d/t alcohol withdrawal, pulmonary embolism x 2 R lung, TIA, diverticulosis, chronic lower bilateral extremity ankle edema if he walks alot, previous history of septicemia, cervical disc disease with chronic back pain with r sided sciatica, degenerative arthritis involving the lower back, tinnitus, vitamin D deficiency, iron anemia, chronic thrombocytopenia, denies MRSA, C-DIFF , scoliosis. pt had radiation 04/28 for prostate cancer History of Any Multi-Drug Resistant Organisms: C-DIFF, MRSA Date of last positivie culture/infection: N/A MDRO Source:: STOOL Past Surgical History: Appendectomy, Cholecystectomy Additional Past Surgical History / Comment(s): EGDs/esophageal varicies bandings, colonoscopies. Past Anesthesia/Blood Transfusion Reactions: No Reported Reaction Additional Past Anesthesia/Blood Transfusion Reaction / Comment(s): after appendix removed sob Past Psychological History: Anxiety, Depression Additional Psychological History / Comment(s): Pt lives in an apartment alone. Apartment complex has front door ramp and has an elevator. no pets. Sometimes his sister stays with him and cleans his home. He uses a cane to ambulate at times. He drives but currently has no car. He gets to [facility] [place] by [facility]. He has a nebulizer and a glucometer.pt stated he was getting [facility] but has'nt seen them in few days,not sure if they're still coming. Used to work in [employer]. Relates that he's not been a smoker. Denies recreational drug use. His left him many years ago he has adult children that he does not see very often. No experience. No travel history. No animal exposures Smoking Status: Never smoker Past Alcohol Use History: Abuse, Daily Additional Past Alcohol Use History / Comment(s): Pt states that normally he drinks 2-3 large beers per day but 05-22- he drank a 5th of vodka, reports 1/5 vodka every 2 days 08/2018 Past Drug Use History: None Reported - Past Family History Mother Family Medical History: COPD, CVA/TIA, Dementia Additional Family Medical History / Comment(s): from a stroke Father Family Medical History: Pneumonia Additional Family Medical History / Comment(s): Father of pneumonia when he was close to 80 yrs old. Medications and Allergies Home Medications Medication Instructions Recorded Confirmed Type cloNIDine HCL [Catapres] 0.1 mg PO BID #60 tab 03/26/18 09/04/18 Rx Ferrous Sulfate [Iron (65 MG 325 mg PO DAILY 04/24/18 09/04/18 History Elemental)] Magnesium Oxide [Mag-Ox] 400 mg PO HS 04/24/18 09/04/18 History Thiamine Mononitrate (Vit B1) 100 mg PO DAILY 06/21/18 09/04/18 History [Vitamin B-1] Famotidine [Pepcid] 20 mg PO BID 08/23/18 09/04/18 History amLODIPine [Norvasc] 5 mg PO BID 08/25/18 09/04/18 History Allergies Allergy/AdvReac Type Severity Reaction Status Date / Time adhesive tape Allergy Rash/Hives Verified 09/04/18 16:08 latex Allergy Unknown Verified 09/04/18 16:08 egg AdvReac Nausea & Verified 09/04/18 16:08 Vomiting lisinopril AdvReac EYES Verified 09/04/18 16:08 BURN&ITCH/WEAKNESS tomato AdvReac Nausea & Verified 09/04/18 16:08 Vomiting & Diarrhea Physical Exam Vitals: Vital Signs Temp Pulse Pulse Pulse Resp BP Pulse Ox 09/06/18 12:14 84 09/06/18 12:00 84 09/06/18 07:06 80 09/06/18 06:55 84 97 09/06/18 05:35 98.1 F 81 20 117/65 98 09/06/18 02:51 74 18 09/06/18 02:42 75 16 09/05/18 20:31 97.4 F L 90 18 128/72 96 09/05/18 20:06 92 09/05/18 19:54 92 09/05/18 15:19 96 09/05/18 15:09 92 09/05/18 15:00 97.9 F 90 16 124/72 96 Intake and Output 09/05/18 09/06/18 09/06/18 22:59 06:59 14:59 Other: Voiding Method Toilet Toilet # Voids 2 2 3 Results 09/06/18 10:47 09/06/18 10:47 Cardiac Enzymes 09/06/18 09/06/18 Range/Units 10:47 10:47 AST 70 H (17-59) U/L Troponin I <0.012 (0.000-0.034) ng/mL CBC 09/06/18 Range/Units 10:47 WBC 7.4 (3.8-10.6) k/uL RBC 4.14 L (4.30-5.90) m/uL Hgb 13.1 (13.0-17.5) gm/dL Hct 40.5 (39.0-53.0) % Plt Count 110 L (150-450) k/uL Comprehensive Metabolic Panel 09/06/18 Range/Units 10:47 Sodium 136 L (137-145) mmol/L Potassium 4.7 (3.5-5.1) mmol/L Chloride 103 (98-107) mmol/L Carbon Dioxide 23 (22-30) mmol/L BUN 16 (9-20) mg/dL Creatinine 0.53 L (0.66-1.25) mg/dL Glucose 200 H (74-99) mg/dL Calcium 8.9 (8.4-10.2) mg/dL AST 70 H (17-59) U/L ALT 27 (21-72) U/L Alkaline Phosphatase 71 (38-126) U/L Total Protein 7.8 (6.3-8.2) g/dL Albumin 3.8 (3.5-5.0) g/dL Current Medications Generic Name Dose Route Start Last Admin Trade Name Freq PRN Reason Stop Dose Admin Albuterol/Ipratropium 3 ml 09/05/18 08:00 09/06/18 12:00 Duoneb 0.5 Mg-3 Mg/3 Ml Soln INHALATION 3 ml RT-QID TANYA Administration Albuterol/Ipratropium 3 ml 09/04/18 21:11 09/06/18 02:42 Duoneb 0.5 Mg-3 Mg/3 Ml Soln INHALATION 3 ml RT-Q2H PRN Administration Shortness Of Breath Or Wheezing Azithromycin 500 mg 09/05/18 12:00 09/06/18 07:10 Zithromax PO 500 mg DAILY@1200 TANYA Administration Clonidine 0.1 mg 09/04/18 21:00 09/06/18 07:11 Catapres PO 0.1 mg BID TANYA Administration Famotidine 20 mg 09/04/18 21:00 09/06/18 07:10 Pepcid PO 20 mg BID TANYA Administration Ferrous Sulfate 325 mg 09/05/18 09:00 09/06/18 07:10 Feosol PO 325 mg DAILY TANYA Administration Ceftriaxone Sodium 1 gm/ 50 mls @ 100 mls/hr 09/05/18 09:00 09/06/18 08:04 Sodium Chloride IVPB 09/08/18 09:01 100 mls/hr Q24HR TANYA Administration Insulin Aspart 0 unit 09/04/18 17:30 09/06/18 13:00 Novolog SQ Not Given ACHS [facility] Protocol Lorazepam 1 mg 09/04/18 13:41 09/06/18 02:22 Ativan IV 1 mg Q2HR PRN Administration CIWA 8 or 9 Lorazepam 1 mg 09/04/18 13:41 Ativan IV Q1HR PRN CIWA 10 to 15 Lorazepam 2 mg 09/04/18 13:41 Ativan IV 09/06/18 13:41 Q10M PRN CIWA 16 or higher Magnesium Oxide 400 mg 09/04/18 21:00 09/05/18 21:15 Mag-Ox PO 400 mg HS TANYA Administration Methylprednisolone 20 mg 09/06/18 09:00 09/06/18 07:11 Medrol Dose Pack PO 09/11/18 08:59 20 mg DAILY TANYA Administration Taper Miscellaneous Information 1 each 09/04/18 11:41 Pneumonia Protocol Utilized PO ONCE PRN Per Protocol Multivitamins 1 each 09/06/18 12:00 09/06/18 07:10 Theragran PO 1 each DAILY@1200 TANYA Administration Thiamine HCl 100 mg 09/04/18 17:00 09/06/18 07:10 Vitamin B-1 PO 100 mg BID@1200,1700 TANYA Administration Intake and Output 09/05/18 09/06/18 09/06/18 22:59 06:59 14:59 Other: Voiding Method Toilet Toilet # Voids 2 2 3 09/06/18 10:47 09/06/18 10:47
--- NOTE | 2018-09-06 14:41 | P.PN ---
Subjective Progress Note Date: 09/06/18 Anders Aguilar is a 63-year-old male who presented to [facility] emergency room with a chief complaint of worsening shortness of breath, chest tightness, and acute tremors. Patient called EMS and was brought into emergency room, he was evaluated in ER d-dimer was slightly elevated he und erwent computed tomography scan angiogram of the chest that was negative for any evidence of pulmonary embolism, EKG and troponin level were within normal limits chest x-ray was positive for increased density in the right infrahilar region suggestive of pneumonia. Patient was started on IV antibiotic Rocephin and Zithromax and was admitted to medical floor. Patient states that he started having severe tremors home, when EMS personnel came to pick him up, on presentation he was started on seizure precautions, EEG was ordered. Patient has known history of excessive alcohol use with previous admission for alcohol withdrawal, he was started on CIWA protocol. Patient was seen and examined on 09/05/2018 in a.m. he was alert and oriented 3 in no apparent distress lying comfortably in bed there was no fever or chills no headache or dizziness patient had occasional cough no chest pain no shortness of breath at rest no nausea or vomiting no abdominal pain no diarrhea and no urinary symptoms. On 09/06/2018 patient is alert and oriented 3. Patient has been up ambulating throughout the halls. Patient did have EEG completed. This time patient denies chest pain or shortness breath. Patient denies nausea vomiting or diarrhea. Patient denies any urinary burning or frequency. Repeat chest x-ray ordered for a.m. Objective - Vital Signs Vital signs: Vital Signs Temp 97.0 F L 09/06/18 14:22 Pulse 100 09/06/18 14:22 Resp 20 09/06/18 14:22 BP 121/70 09/06/18 14:22 Pulse Ox 97 09/06/18 14:22 Intake & Output 09/05/18 09/06/18 09/06/18 18:59 06:59 18:59 Other: Voiding Method Toilet Toilet # Voids 2 2 3 - Exam In general patient is alert and oriented 3 in no apparent distress HEENT head normocephalic and atraumatic Neck is supple no JVD no goiter no lymphadenopathy Chest exam reveals a few scattered crackles bilaterally no wheezing Cardiac exam reveals regular heart sounds S1 and S2 no gallops no murmurs Abdomen is soft nontender no organomegaly with normal bowel sounds Extremity exam reveals no edema no cyanosis or clubbing Neurological examination reveals no gross focal deficit - Labs CBC & Chem 7: 09/06/18 10:47 09/06/18 10:47 Labs: Abnormal Lab Results - Last 24 Hours (Table) 09/05/18 09/05/18 09/05/18 Range/Units 16:20 16:58 20:05 RBC (4.30-5.90) m/uL RDW (11.5-15.5) % Plt Count (150-450) k/uL Lymphocytes # (1.0-4.8) k/uL Sodium (137-145) mmol/L Creatinine (0.66-1.25) mg/dL Glucose (74-99) mg/dL POC Glucose (mg/dL) 113 H (75-99) mg/dL Plasma Lactic Acid Hitesh 2.1 H* 2.2 H* (0.7-2.0) mmol/L AST (17-59) U/L 09/05/18 09/06/18 09/06/18 Range/Units 20:38 02:02 06:59 RBC (4.30-5.90) m/uL RDW (11.5-15.5) % Plt Count (150-450) k/uL Lymphocytes # (1.0-4.8) k/uL Sodium (137-145) mmol/L Creatinine (0.66-1.25) mg/dL Glucose (74-99) mg/dL POC Glucose (mg/dL) 154 H 159 H 126 H (75-99) mg/dL Plasma Lactic Acid Hitesh (0.7-2.0) mmol/L AST (17-59) U/L 09/06/18 09/06/18 09/06/18 Range/Units 10:47 10:47 12:04 RBC 4.14 L (4.30-5.90) m/uL RDW 15.6 H (11.5-15.5) % Plt Count 110 L (150-450) k/uL Lymphocytes # 0.3 L (1.0-4.8) k/uL Sodium 136 L (137-145) mmol/L Creatinine 0.53 L (0.66-1.25) mg/dL Glucose 200 H (74-99) mg/dL POC Glucose (mg/dL) 137 H (75-99) mg/dL Plasma Lactic Acid Hitesh (0.7-2.0) mmol/L AST 70 H (17-59) U/L Microbiology - Last 24 Hours (Table) 09/04/18 10:30 Blood Culture - Preliminary Blood No Growth after 48 hours Assessment and Plan Assessment: #1 right infrahilar density suggestive of pneumonia patient was started on IV Rocephin and IV Zithromax pulmonary consultation was requested #2 history of alcohol overuse, patient states that he stopped drinking 5 days ago, he had severe tremors at home, he was started on CIWA protocol. #3 underlying history of liver cirrhosis with portal hypertension and esophageal phalanxes #4 previous history of paroxysmal atrial fibrillation not on anticoagulation due to history of bleeding from esophageal varices #5 underlying history of COPD was evidence of exacerbation #6 history of Clostridium difficile colitis, C. diff toxin was checked on presentation and was negative #7 electrolyte imbalance, with hypomagnesemia correcting #8 mild elevation in liver enzymes will monitor. Patient was seen by pulmonary and cardiology services Patient has been cleared by cardiology services EEG completed Repeat chest x-ray ordered for a.m. Patient currently on Rocephin and Zithromax for IV antibiotics. Medrol Dosepak per pulmonary DVT prophylaxis SCDs GI prophylaxis Pepcid I performed an examination of the patient and discussed their management with the Nurse Practitioner. I have reviewed the Nurse Practitioner's notes and agree with the documented findings and plan of care
[2018-09-06 17:05] LABS: Glucose,Whole Blood 106 mg/dL (75-99)
[2018-09-06 20:36] LABS: Glucose,Whole Blood 203 mg/dL (75-99)
[2018-09-06] MEDS: MAGNESIUM OXIDE 400 MG TAB PO SCH (21:15)
[2018-09-07] MEDS: IPRATROPIUM-ALBUTEROL 3 ML NEB INHALATION SCH ×2 (07:02→10:56)
[2018-09-07 07:14] LABS: Glucose,Whole Blood 93 mg/dL (75-99)
[2018-09-07] MEDS: INSULIN ASPART (NovoLOG) 100 UNIT/ML VIAL SQ SCH ×2 (07:55→11:53)
[2018-09-07] MEDS: FAMOTIDINE 20 MG TAB PO SCH (07:57)
[2018-09-07] MEDS: FERROUS SULFATE 325 MG TAB PO SCH (07:57)
[2018-09-07] MEDS: methylPREDNISolone 4 MG TAB TAPER PO SCH (07:57)
[2018-09-07] MEDS: cloNIDine HCL 0.1 MG TAB PO SCH (07:57)
[2018-09-07 08:21] LABS: Basophils % (A) 0 %; Eosinophils % (A) 1 %; HCT 44.3 % (39.0-53.0); HGB 13.9 gm/dL (13.0-17.5); Lymphocytes # (A) 1.6 k/uL (1.0-4.8); Lymphocytes % (A) 27 %; MCH 30.4 pg (25.0-35.0); MCHC 31.3 g/dL (31.0-37.0); Mean Platelet Volume 7.7; Monocytes # (A) 0.2 k/uL (0-1.0); Monocytes % (A) 4 %; Neutrophils % (A) 67 %; Platelet Count 116 k/uL (150-450); RBC 4.57 m/uL (4.30-5.90); RDW 15.9 % (11.5-15.5); WBC 5.9 k/uL (3.8-10.6)
[2018-09-07 08:35] LABS: ALT 48 U/L (21-72); AST 77 U/L (17-59); Alkaline Phosphatase 96 U/L (38-126); Anion Gap 9 mmol/L; Blood Urea Nitrogen 16 mg/dL (9-20); Calcium 9.1 mg/dL (8.4-10.2); Carbon Dioxide 26 mmol/L (22-30); Chloride 104 mmol/L (98-107); Glucose 97 mg/dL (74-99); Potassium 3.6 mmol/L (3.5-5.1); Sodium 139 mmol/L (137-145); Total Bilirubin 1.2 mg/dL (0.2-1.3); Total Protein 7.9 g/dL (6.3-8.2)
--- NOTE | 2018-09-07 08:47 | EEG ---
ELECTROENCEPHALOGRAM REPORT PROCEDURE DATE: 09/06/2018 ELECTROENCEPHALOGRAM (EEG) REPORT: TECHNIQUE: A routine 18 channel EEG was performed with video using the 10/20 international placement system. HISTORY: The patient presented to the emergency room with worsening shortness of breath, chest tightness, and acute tremors. Other medical history includes atrial fibrillation, COPD, CVA, diabetes, and other conditions. CURRENT MEDICATIONS: Vitamin B1, multivitamin, Medrol Dosepak, lorazepam/Ativan, insulin, magnesium oxide. STUDY DURATION: 25 minutes. FINDINGS: BACKGROUND: The background activity consisted of 7 to 8 hertz rhythmic waveforms symmetrically distributed to both posterior quadrants. ACTIVATION: Hyperventilation: Not performed. Photic stimulation: Symmetric driving seen. Sleep: Drowsy. ABNORMALITIES: None. IMPRESSION: Mildly abnormal EEG. Please note that background frequencies did not exceed 8 hertz. These findings indicate mild diffuse cerebral dysfunction which may in part be due to medication effect. No seizures were recorded. No epileptiform activity was present. MMODL / IJN: [id number] /
--- NOTE | 2018-09-07 10:40 | XR ---
EXAMINATION TYPE: XR chest 2V DATE OF EXAM: 09/07/2018 COMPARISON: Prior chest x-ray 09/05/2018 HISTORY: Shortness of breath and abnormal chest x-ray TECHNIQUE: Frontal and lateral views of the chest are obtained. FINDINGS: The patient is again rotated. There is volume loss in the left hemithorax. Aorta is dense a nd dilated. There is no focal air space opacity, pleural effusion, or pneumothorax seen. The cardiac silhouette size is within normal limits. The osseous structures are intact. IMPRESSION: No acute cardiopulmonary process. Ectatic descending thoracic aorta.
[2018-09-07] MEDS: THIAMINE 100 MG TAB PO SCH (11:52)
[2018-09-07] MEDS: MULTIVITAMINS, THERA 1 EACH TAB PO SCH (11:52)
[2018-09-07] MEDS: AZITHROMYCIN 500 MG TAB PO SCH (11:52)
[2018-09-07 11:58] LABS: Glucose,Whole Blood 127 mg/dL (75-99)
--- NOTE | 2018-09-07 13:49 | P.DS ---
Providers Date of admission: 09/04/18 11:42 Expected date of discharge: 09/07/18 Attending physician: Charlette Finney Consults: 09/05/18 13:35 Consult Physician Routine Consulting Provider: Barry Marcus Consult Reason/Comments: pneumonia, copd Do you want consulting provider notified?: Yes 09/05/18 13:52 Consult Physician Routine Consulting Provider: Sarika Hathaway Consult Reason/Comments: chest tightness Do you want consulting provider notified?: Yes Primary care physician: Yoon Phillips Hospital Course: Discharge diagnosis #1 right infrahilar density suggestive of pneumonia patient was started on IV Rocephin and IV Zithromax pulmonary consultation was requested #2 history of alcohol overuse, patient states that he stopped drinking 5 days ag o, he had severe tremors at home, he was started on CIWA protocol. #3 underlying history of liver cirrhosis with portal hypertension and esophageal phalanxes #4 previous history of paroxysmal atrial fibrillation not on anticoagulation due to history of bleeding from esophageal varices #5 underlying history of COPD was evidence of exacerbation #6 history of Clostridium difficile colitis, C. diff toxin was checked on presentation and was negative #7 electrolyte imbalance, with hypomagnesemia correcting #8 mild elevation in liver enzymes will monitor. Patient will be discharged home on Ceftin and Medrol Dosepak Patient also will be discharged on Ativan for 3 days for alcohol withdrawal, patient again educated on the importance of alcohol cessation. Hospital course Anders Aguilar is a 63-year-old male who presented to [facility] emergency room with a chief complaint of worsening shortness of breath, chest tightness, and acute tremors. Patient called EMS and was brought into emergency room, he was evaluated in ER d-dimer was slightly elevated he underwent computed tomography scan angiogram of the chest that was negative for any evidence of pulmonary embolism, EKG and troponin level were within normal limits chest x-ray was positive for increased density in the right infrahilar region suggestive of pneumonia. Patient was started on IV antibiotic Rocephin and Zithromax and was admitted to medical floor. Patient states that he started having severe tremors home, when EMS personnel came to pick him up, on presentation he was started on seizure precautions, EEG was ordered. Patient has known history of excessive alcohol use with previous admission for alcohol withdrawal, he was started on CIWA protocol. Patient was seen and examined on 09/05/2018 in a.m. he was alert and oriented 3 in no apparent distress lying comfortably in bed there was no fever or chills no headache or dizziness patient had occasional cough no chest pain no shortness of breath at rest no nausea or vomiting no abdominal pain no diarrhea and no urinary symptoms. On 09/06/2018 patient is alert and oriented 3. Patient has been up ambulating throughout the halls. Patient did have EEG completed. This time patient denies chest pain or shortness breath. Patient denies nausea vomiting or diarrhea. Patient denies any urinary burning or frequency. Repeat chest x-ray ordered for a.m. 09/07/2018 patient is alert and oriented 3. Patient states he feels much improved and feels ready to go home. EEG completed showing mildly abnormal EEG, no seizures recorded. Repeat chest x-ray showing no acute cardiopulmonary process. Patient denies chest pain or shortness breath. Patient denies nausea vomiting or diarrhea. Patient denies any urinary burning or frequency. Patient will be DC'd home on Ceftin from adjacent Medrol Dosepak. I performed an examination of the patient and discussed their management with the Nurse Practitioner. I have reviewed the Nurse Practitioner's notes and agree with the documented findings and plan of care Patient Condition at Discharge: Stable Plan - Discharge Summary Discharge Rx Participant: No New Discharge Prescriptions: New LORazepam [Ativan] 0.5 mg PO BID PRN 3 Days #6 tab PRN Reason: tremors Cefuroxime Axetil [Ceftin] 500 mg PO BID 5 Days #10 tab methylPREDNISolone Dose Pack [Medrol Dose Pack] 4 mg PO DIRECTED #21 package Continue cloNIDine HCL [Catapres] 0.1 mg PO BID #60 tab Magnesium Oxide [Mag-Ox] 400 mg PO HS Ferrous Sulfate [Iron (65 MG Elemental)] 325 mg PO DAILY Thiamine Mononitrate (Vit B1) [Vitamin B-1] 100 mg PO DAILY Famotidine [Pepcid] 20 mg PO BID amLODIPine [Norvasc] 5 mg PO BID Discharge Medication List cloNIDine HCL [Catapres] 0.1 mg PO BID #60 tab 03/26/18 [Rx] Ferrous Sulfate [Iron (65 MG Elemental)] 325 mg PO DAILY 04/24/18 [History] Magnesium Oxide [Mag-Ox] 400 mg PO HS 04/24/18 [History] Thiamine Mononitrate (Vit B1) [Vitamin B-1] 100 mg PO DAILY 06/21/18 [History] Famotidine [Pepcid] 20 mg PO BID 08/23/18 [History] amLODIPine [Norvasc] 5 mg PO BID 08/25/18 [History] Cefuroxime Axetil [Ceftin] 500 mg PO BID 5 Days #10 tab 09/07/18 [Rx] LORazepam [Ativan] 0.5 mg PO BID PRN 3 Days #6 tab 09/07/18 [Rx] methylPREDNISolone Dose Pack [Medrol Dose Pack] 4 mg PO DIRECTED #21 package 09/07/18 [Rx] Follow up Appointment(s)/Referral(s): [facility], [NON-STAFF] - Yoon Phillips DO [Primary Care Provider] - 1-2 days Patient Instructions/Handouts: COPD (Chronic Obstructive Pulmonary Disease) (DC), Abuse of Alcohol (DC) Activity/Diet/Wound Care/Special Instructions: Diabetic diet. Activity as tolerated, use cane until strength increases. No alcohol use. References provided.
--- NOTE | 2018-09-07 14:01 | P.PN ---
Subjective Progress Note Date: 09/07/18 Principal diagnosis: Mild purulent tracheobronchitis with bronchospasm On 09/06/2016 patient seen in follow-up on medical surgical floor. He is resting comfortably in bed, he is on room air, his lungs are relatively clear, no rhonchi, no wheezes, room air pulse ox is 98%, hemodynamically stable, respirations are even and nonlabored, patient does get dyspneic with ambulation, but otherwise no distress. His labs have been noted, white blood cell count 7.4, hemoglobin is 13.1, no BMP was done. No acute events overnight, no specific complaints. Mild headache, no fever or chills. On 09/07/2018 patient seen in follow-up on medical surgical floor. He is resting comfortably in bed, in no acute distress, his discharge yesterday was held related to some tremors and reportedly unilateral weakness. Today's exam patient is awake and alert, no focal neurological deficits, repeat chest x-ray was obtained, and showed no acute cardiopulmonary process. Vital signs remain s table, patient is on room air, with a pulse ox of 96%, no fever or chills, lung sounds are clear. Diminished at the bases. EEG was obtained, showed mildly abnormal EEG, indicating mild diffuse cerebral dysfunction which in part could be due to medication effect. No seizure activity no epileptiform activity was present. Objective - Vital Signs Vital signs: Vital Signs Temp 98.7 F 09/07/18 05:10 Pulse 74 09/07/18 11:05 Resp 18 09/07/18 08:00 BP 131/76 09/07/18 05:10 Pulse Ox 96 09/07/18 07:04 Intake & Output 09/06/18 09/07/18 09/07/18 18:59 06:59 18:59 Other: Voiding Method Toilet Toilet # Voids 3 1 3 - Exam GENERAL EXAM: Alert, pleasant, 63-year-old white male, comfortable in no apparent distress. HEAD: Normocephalic/atraumatic. EYES: Normal reaction of pupils, equal size. Conjunctiva pink, sclera white. NOSE: Clear with pink turbinates. THROAT: No erythema or exudates. NECK: No masses, no JVD, no thyroid enlargement, no adenopathy. CHEST: No chest wall deformity. Symmetrical expansion. LUNGS: Equal air entry with no crackles, wheeze, rhonchi or dullness. CVS: Regular rate and rhythm, normal S1 and S2, no gallops, no murmurs, no rubs ABDOMEN: Soft, nontender. No hepatosplenomegaly, normal bowel sounds, no guarding or rigidity. EXTREMITIES: No clubbing, no edema, no cyanosis, 2+ pulses and upper and lower extremities. MUSCULOSKELETAL: Muscle strength and tone normal. SPINE: No scoliosis or deformity SKIN: No rashes CENTRAL NERVOUS SYSTEM: Alert and oriented -3. No focal deficits, tone is normal in all 4 extremities. PSYCHIATRIC: Alert and oriented -3. Appropriate affect. Intact judgment and insight. - Labs CBC & Chem 7: 09/07/18 07:43 09/07/18 07:43 Labs: Abnormal Lab Results - Last 24 Hours (Table) 09/06/18 09/06/18 09/07/18 Range/Units 16:58 20:35 07:43 RDW 15.9 H (11.5-15.5) % Plt Count 116 L (150-450) k/uL POC Glucose (mg/dL) 106 H 203 H (75-99) mg/dL AST (17-59) U/L 09/07/18 09/07/18 Range/Units 07:43 11:47 RDW (11.5-15.5) % Plt Count (150-450) k/uL POC Glucose (mg/dL) 127 H (75-99) mg/dL AST 77 H (17-59) U/L Microbiology - Last 24 Hours (Table) 09/04/18 10:30 Blood Culture - Preliminary Blood No Growth after 72 hours Assessment and Plan Plan: Assessment: #1. Mild purulent tracheobronchitis with bronchospasm, less likely bronchopneumonia #2. Stable chronic obstructive pulmonary disease, with history of secondhand smoke exposure from her family members #3. Anion gap metabolic acidosis of unclear etiology, mild lactic acidemia #4. History of gastroesophageal reflux disease #5. History of atrial fibrillation #6. History of alcoholic liver disease #7. History of pulmonary embolism #8. Prostate cancer, status post radiation therapy #9. Diabetes mellitus #10. History of GI bleeding #11. Hypertention, hyperlipidemia #12. EtOH abuse Plan: Patient remains stable, he chest x-ray has been reviewed, and showed no acute pulmonary process, no fever or chills, no dyspnea, no cough or chest congestion, focal neurological deficits, no tremors, EEG was negative for seizure activity. A pulmonary perspective patient is stable for discharge home today. I performed a history & physical examination of the patient and discussed their management with my nurse practitioner, Aline Collins. I reviewed the nurse practitioner's note and agree with the documented findings and plan of care. Lung sounds are positive for clear breath sounds. The findings and the impression was discussed with the patient. I attest to the documentation by the nurse practitioner. Time with Patient: Less than 30
[2018-09-07 14:14] VITALS: BP 154/95; PULSE 101; RESP 20; TEMP 98.9
== END 2018-09-07 14:35 | disposition home health service (06) | DRG 194 ==
LOC: EC 09:00 → 4SSUR 11:42 → 4MS4W 09-05 17:31
PROVIDERS: ADMIT Internal Medicine; ATTEND Internal Medicine
DX: J18.9 Pneumonia, unspecified organism (principal); J44.0 Chronic obstructive pulmonary disease with (acute) lower respiratory infection; J44.1 Chronic obstructive pulmonary disease with (acute) exacerbation; E87.2 Acidosis; F10.239 Alcohol dependence with withdrawal, unspecified; J98.11 Atelectasis; K76.6 Portal hypertension; C61 Malignant neoplasm of prostate; E11.9 Type 2 diabetes mellitus without complications; E78.5 Hyperlipidemia, unspecified; E83.42 Hypomagnesemia; E86.0 Dehydration; F32.9 Major depressive disorder, single episode, unspecified; F41.9 Anxiety disorder, unspecified; I10 Essential (primary) hypertension; I48.0 Paroxysmal atrial fibrillation; I77.819 Aortic ectasia, unspecified site; K21.9 Gastro-esophageal reflux disease without esophagitis; K70.30 Alcoholic cirrhosis of liver without ascites; Z77.22 Contact with and (suspected) exposure to environmental tobacco smoke (acute) (chronic); Z79.899 Other long term (current) drug therapy; Z82.3 Family history of stroke; Z82.5 Family history of asthma and other chronic lower respiratory diseases; Z86.711 Personal history of pulmonary embolism; Z86.73 Personal history of transient ischemic attack (TIA), and cerebral infarction without residual deficits; Z91.19 Patient's noncompliance with other medical treatment and regimen; Z92.3 Personal history of irradiation; Z71.41 Alcohol abuse counseling and surveillance of alcoholic; M41.9 Scoliosis, unspecified; M50.30 Other cervical disc degeneration, unspecified cervical region; Z87.01 Personal history of pneumonia (recurrent); G89.29 Other chronic pain; D69.6 Thrombocytopenia, unspecified; D50.9 Iron deficiency anemia, unspecified; Z60.2 Problems related to living alone; Z82.0 Family history of epilepsy and other diseases of the nervous system; Z86.14 Personal history of Methicillin resistant Staphylococcus aureus infection; Z88.8 Allergy status to other drugs, medicaments and biological substances; Z91.012 Allergy to eggs; Z91.040 Latex allergy status; M54.31 Sciatica, right side
CPT/HCPCS: 36415; 71046; 71275; 80053; 82550; 83036; 83605; 83735; 83880; 84484; 85025; 85379; 85610; 85730; 87040; 87324; 87502; 93005; 94640; 94760; 95816; 96361; 96365; 96375; 99291

== ENCOUNTER 2018-09-14 21:48 | Emergency (ER) | payer OTHER ==
[2018-09-14] MEDS ORDERED: THIAMINE 100 MG/ML 2 ML VIAL IM STA (22:09)
[2018-09-14] MEDS ORDERED: MULTIVITAMINS, THERA 1 EACH TAB PO STA (22:09)
[2018-09-14] MEDS ORDERED: SODIUM CHLORIDE 0.9% 1,000 ML IV STA ×2 (22:09)
[2018-09-14] MEDS ORDERED: amLODIPine 5 MG TAB PO STA (22:11)
[2018-09-14] MEDS ORDERED: chlordiazePOXIDE 25 MG CAP PO ONE (22:30)
[2018-09-14 22:54] LABS: Anisocytosis Slight; Basophils % (A) 0 %; Eosinophils % (A) 0 %; HCT 40.8 % (39.0-53.0); HGB 13.7 gm/dL (13.0-17.5); Lymphocytes # (A) 0.6 k/uL (1.0-4.8); Lymphocytes % (A) 15 %; MCH 32.4 pg (25.0-35.0); MCHC 33.5 g/dL (31.0-37.0); MCV 96.7 fL (80.0-100.0); Mean Platelet Volume 7.2; Monocytes # (A) 0.2 k/uL (0-1.0); Monocytes % (A) 6 %; Neutrophils % (A) 77 %; Platelet Count 109 k/uL (150-450); RBC 4.22 m/uL (4.30-5.90); RDW 16.4 % (11.5-15.5)
[2018-09-14 23:24] LABS: ALT 74 U/L (21-72); AST 137 U/L (17-59); Albumin 4.5 g/dL (3.5-5.0); Alkaline Phosphatase 157 U/L (38-126); Amylase 165 U/L (30-110); Anion Gap 21 mmol/L; Blood Urea Nitrogen 15 mg/dL (9-20); Carbon Dioxide 21 mmol/L (22-30); Chloride 100 mmol/L (98-107); Glucose 97 mg/dL (74-99); Lipase 139 U/L (23-300); Magnesium 1.5 mg/dL (1.6-2.3); Potassium 4.4 mmol/L (3.5-5.1); Sodium 142 mmol/L (137-145)
[2018-09-14 23:32] LABS: Alcohol 271 mg/dL
--- NOTE | 2018-09-14 23:56 | ED ---
Alcohol HPI - General Source: patient, EMS, RN notes reviewed, old records reviewed Mode of arrival: EMS Limitations: no limitations <Stacey Ortega - Last Filed: 09/15/18 04:27> <Briseida Gotti - Last Filed: 09/16/18 03:13> - General Chief Complaint: Alcohol Stated Complaint: ETOH Time Seen by Provider: 09/14/18 21:50 - History of Present Illness Initial Comments: Patient is a 63-year-old male who presents emergency department today for evaluation for alcohol intoxication. Patient reports that he drank a fifth yesterday necessity. Recently discharged for similar complaints. Patient states that he has had some episodes of sharp chest discomfort. Patient at this time has had no vomiting episodes. Denies any falls. Patient states he drank a fifth of vodka prior to arrival. Patient states he tries to quit drinking on his own. (Stacey Ortega) - Related Data Home Medications Medication Instructions Recorded Confirmed Ferrous Sulfate [Iron (65 MG 325 mg PO DAILY 04/24/18 09/14/18 Elemental)] Magnesium Oxide [Mag-Ox] 400 mg PO HS 04/24/18 09/14/18 Thiamine Mononitrate (Vit B1) 100 mg PO DAILY 06/21/18 09/14/18 [Vitamin B-1] Famotidine [Pepcid] 20 mg PO BID 08/23/18 09/14/18 amLODIPine [Norvasc] 5 mg PO BID 08/25/18 09/14/18 Previous Rx's Medication Instructions Recorded cloNIDine HCL [Catapres] 0.1 mg PO BID #60 tab 03/26/18 LORazepam [Ativan] 0.5 mg PO BID PRN 3 Days #6 tab 09/07/18 chlordiazePOXIDE HCl [Librium] 10 mg PO TID 3 Days #9 capsule 09/15/18 Allergies Allergy/AdvReac Type Severity Reaction Status Date / Time adhesive tape Allergy Rash/Hives Verified 09/14/18 22:05 latex Allergy Unknown Verified 09/14/18 22:05 egg AdvReac Nausea & Verified 09/14/18 22:05 Vomiting lisinopril AdvReac EYES Verified 09/14/18 22:05 BURN&ITCH/WEAKNESS tomato AdvReac Nausea & Verified 09/14/18 22:05 Vomiting & Diarrhea Review of Systems ROS Other: All systems not noted in ROS Statement are negative. <Stacey Ortega - Last Filed: 09/15/18 04:27> ROS Other: All systems not noted in ROS Statement are negative. <Briseida Gotti - Last Filed: 09/16/18 03:13> ROS Statement: Those systems with pertinent positive or pertinent negative responses have been documented in the HPI. Past Medical History Past Medical History: Atrial Fibrillation, Cancer, Chest Pain / Angina, COPD, CVA/TIA, Diabetes Mellitus, GERD/Reflux, GI Bleed, Hyperlipidemia, Hypertension, Pneumonia, Prostate Disorder, Pulmonary Embolus (PE) Additional Past Medical History / Comment(s): tachycardia/palpitations likely d/t alcohol withdrawal. hx of Alcoholism, chronic alcoholic cirrhosis with portal hypertension and previous history of upper and lower GI bleeding, esophageal varices, previous history of childhood seizure which he outgrew not taking any antiepileptic medication-possibly had recent seizure-2018 thought d/t alcohol withdrawal, pulmonary embolism x 2 R lung, TIA, diverticulosis, chronic lower bilateral extremity ankle edema if he walks alot, previous history of septicemia, cervical disc disease with chronic back pain with r sided sciatica, degenerative arthritis involving the lower back, tinnitus, vitamin D deficiency, iron anemia, chronic thrombocytopenia, denies MRSA, C-DIFF , scoliosis. pt had radiation 04/28 for prostate cancer History of Any Multi-Drug Resistant Organisms: C-DIFF, MRSA Date of last positivie culture/infection: N/A MDRO Source:: STOOL Past Surgical History: Appendectomy, Cholecystectomy Additional Past Surgical History / Comment(s): EGDs/esophageal varicies bandings, colonoscopies. Past Anesthesia/Blood Transfusion Reactions: No Reported Reaction Additional Past Anesthesia/Blood Transfusion Reaction / Comment(s): after appendix removed sob Past Psychological History: Anxiety, Depression Smoking Status: Never smoker Past Alcohol Use History: Abuse, Daily Past Drug Use History: None Reported - Past Family History Mother Family Medical History: COPD, CVA/TIA, Dementia Additional Family Medical History / Comment(s): from a stroke Father Family Medical History: Pneumonia Additional Family Medical History / Comment(s): Father of pneumonia when he was close to 80 yrs old. <Stacey Ortega - Last Filed: 09/15/18 04:27> General Exam Limitations: no limitations General appearance: alert, in no apparent distress, appears intoxicated Head exam: Present: atraumatic, normocephalic, normal inspection Eye exam: Present: normal appearance, PERRL, EOMI. Absent: scleral icterus, conjunctival injection, periorbital swelling ENT exam: Present: normal exam, mucous membranes moist Neck exam: Present: normal inspection. Absent: tenderness, meningismus, lymp hadenopathy Respiratory exam: Present: normal lung sounds bilaterally. Absent: respiratory distress, wheezes, rales, rhonchi, stridor Cardiovascular Exam: Present: regular rate, normal rhythm, normal heart sounds. Absent: systolic murmur, diastolic murmur, rubs, gallop, clicks GI/Abdominal exam: Present: soft, normal bowel sounds. Absent: distended, tenderness, guarding, rebound, rigid Extremities exam: Present: normal inspection, full ROM, normal capillary refill. Absent: tenderness, pedal edema, joint swelling, calf tenderness Back exam: Present: normal inspection Neurological exam: Present: alert, oriented X3, CN II-XII intact Psychiatric exam: Present: normal affect, normal mood Skin exam: Present: warm, dry, intact, normal color. Absent: rash <Stacey Ortega - Last Filed: 09/15/18 04:27> - General Exam Comments Initial Comments: 63-year-old male. Alert and oriented. No distress. (Stacey Ortega) Course Vital Signs 09/14/18 09/14/18 09/15/18 21:50 23:50 00:44 Temperature 97.6 F Pulse Rate 118 H 116 H 122 H Respiratory 22 22 20 Rate Blood Pressure 137/93 121/76 127/86 O2 Sat by Pulse 95 99 95 Oximetry 09/15/18 09/15/18 09/15/18 01:00 02:00 04:26 Temperature Pulse Rate 118 H 109 H 106 H Respiratory 22 18 20 Rate Blood Pressure 136/86 110/68 125/85 O2 Sat by Pulse 95 95 96 Oximetry 09/15/18 09/15/18 09/15/18 04:44 05:00 06:41 Temperature 98.4 F Pulse Rate 106 H 102 H Respiratory 20 16 Rate Blood Pressure 129/81 114/83 O2 Sat by Pulse 100 100 Oximetry 09/15/18 07:56 Temperature 98.3 F Pulse Rate 110 H Respiratory 18 Rate Blood Pressure 136/87 O2 Sat by Pulse 99 Oximetry Medical Decision Making - Lab Data Result diagrams: 09/14/18 22:40 09/14/18 22:40 - Radiology Data Radiology results: report reviewed <Stacey Ortega - Last Filed: 09/15/18 04:27> - Lab Data Result diagrams: 09/14/18 22:40 09/14/18 22:40 <Briseida Gotti - Last Filed: 09/16/18 03:13> - Medical Decision Making Patient is a 7-year-old male with history of alcohol intoxication had alcohol abuse. He presents that drinking a fifth a he just doesn't feel well complained of some chest discomfort. Patient was given IV fluids. On reevaluation his respiratory bed. He did have an episode of vomiting was given Zofran and Protonix. Patient's blood work including troponin were negative. Patient chest x-ray shows old left-sided granulomatous disease. Patient is given a second liter bolus as he is intoxicated until 8:30 AM. Patient will be staying in emergency department until clinically sober. (Stacey Ortega) I was available for consultation in the emergency department. The history and physical exam were done by the midlevel provider. I was consulted for this patient's care. I reviewed the case with the midlevel provider and based on their presentation of the patient, I agree with the assessment, medical decision making and plan of care as documented. Chart was dictated using [employer] dictation software. Attempts were made to correct any dictation errors however some typographical errors may persist. (Briseida Gotti) - Lab Data Lab Results 09/14/18 09/14/18 09/14/18 Range/Units 22:40 22:40 22:40 WBC 4.0 (3.8-10.6) k/uL RBC 4.22 L (4.30-5.90) m/uL Hgb 13.7 (13.0-17.5) gm/dL Hct 40.8 (39.0-53.0) % MCV 96.7 (80.0-100.0) fL MCH 32.4 (25.0-35.0) pg MCHC 33.5 (31.0-37.0) g/dL RDW 16.4 H (11.5-15.5) % Plt Count 109 L (150-450) k/uL Neutrophils % 77 % Lymphocytes % 15 % Monocytes % 6 % Eosinophils % 0 % Basophils % 0 % Neutrophils # 3.0 (1.3-7.7) k/uL Lymphocytes # 0.6 L (1.0-4.8) k/uL Monocytes # 0.2 (0-1.0) k/uL Eosinophils # 0.0 (0-0.7) k/uL Basophils # 0.0 (0-0.2) k/uL Anisocytosis Slight Sodium 142 (137-145) mmol/L Potassium 4.4 (3.5-5.1) mmol/L Chloride 100 (98-107) mmol/L Carbon Dioxide 21 L (22-30) mmol/L Anion Gap 21 mmol/L BUN 15 (9-20) mg/dL Creatinine 0.71 (0.66-1.25) mg/dL Est GFR (CKD-EPI)AfAm >90 (>60 ml/min/1.73 sqM) Est GFR (CKD-EPI)NonAf >90 (>60 ml/min/1.73 sqM) Glucose 97 (74-99) mg/dL Calcium 9.0 (8.4-10.2) mg/dL Magnesium 1.5 L (1.6-2.3) mg/dL Total Bilirubin 1.0 (0.2-1.3) mg/dL AST 137 H (17-59) U/L ALT 74 H (21-72) U/L Alkaline Phosphatase 157 H (38-126) U/L Troponin I <0.012 (0.000-0.034) ng/mL Total Protein 8.0 (6.3-8.2) g/dL Albumin 4.5 (3.5-5.0) g/dL Amylase 165 H (30-110) U/L Lipase 139 (23-300) U/L Serum Alcohol 271 H* mg/dL EKG performed at 2255 shows sinus tachycardia, ventricular rate of 122, AR interval is 152 ms. QRS duration 76 ms. QT QTc is 3:30/41 ms. (Stacey Ortega) - Radiology Data No evidence of acute cardiopulmonary disease. Small left mid along probable calcified pulmonary granuloma. (Stacey Ortega) Disposition Is patient prescribed a controlled substance at d/c from ED?: No Time of Disposition: 04:28 <Stacey Ortega - Last Filed: 09/15/18 04:27> Is patient prescribed a controlled substance at d/c from ED?: Yes <Briseida Gotti - Last Filed: 09/16/18 03:13> Clinical Impression: Alcoholic gastritis, Alcohol intoxication delirium Disposition: HOME SELF-CARE Condition: Good Instructions (If sedation given, give patient instructions): Alcohol Intoxication (ED) Additional Instructions: Patient advised to follow-up with primary care doctor. Return to the emergency department if any alarming signs or symptoms occur. Rest, remain hydrated. Stop Drinking.. Prescriptions: chlordiazePOXIDE HCl [Librium] 10 mg PO TID 3 Days #9 capsule Referrals: Yoon Phillips DO [Primary Care Provider] - 1-2 days
[2018-09-15] MEDS ORDERED: MAGNESIUM OXIDE 400 MG TAB PO STA (00:13)
[2018-09-15] MEDS ORDERED: ONDANSETRON 4 MG/2 ML VIAL IVP STA (00:36)
[2018-09-15] MEDS ORDERED: PANTOPRAZOLE 40 MG/10 ML VIAL IVP STA (00:36)
--- NOTE | 2018-09-15 00:51 | XR ---
EXAM: XR Chest, 2 Views CLINICAL HISTORY: Reason: Pain TECHNIQUE: Frontal and lateral views of the chest. COMPARISON: Chest x-ray 09/07/2018. Chest x-ray 09/05/2018. FINDINGS: Patient rotation towards the left. Lungs: Lungs are clear of focal infiltrates or consolidations. Small probable calcified pulmonary granuloma left midlung zone. Pleural space: No evidence of pleural effusion or pneumothorax. Heart: Heart size is within normal limits. Mediastinum: Mediastinal structures are unremarkable. Bones/joints: Thoracic spine degenerative changes. Moderate upper thoracic vertebral compression fracture, unchanged. IMPRESSION: No evidence of acute cardiopulmonary disease. Small left mid lung probable calcified pulmonary granuloma.
[2018-09-15] MEDS ORDERED: SODIUM CHLORIDE 0.9% 1,000 ML IV ONE (01:28)
[2018-09-15] MEDS ORDERED: ACETAMINOPHEN TAB 500 MG TAB PO STA (03:50)
[2018-09-15] MEDS ORDERED: IBUPROFEN 600 MG TAB PO STA (03:50)
[2018-09-15] MEDS ORDERED: THIAMINE 100 MG/ML 2 ML VIAL IM STA (04:28)
[2018-09-15] MEDS ORDERED: LORazepam 2 MG/ML INJ IV PRN ×3 (04:28)
[2018-09-15] MEDS ORDERED: METOCLOPRAMIDE 5 MG/ML 2 ML VIAL IVP STA (04:29)
[2018-09-15] MEDS ORDERED: diphenhydrAMINE 50 MG/ML 1 ML VIAL IVP STA (04:29)
[2018-09-15 07:58] VITALS: BP 136/87; PULSE 110; RESP 18; TEMP 98.3
[2018-09-15] MEDS ORDERED: THIAMINE 100 MG TAB PO SCH (12:00)
== END 2018-09-15 08:30 | disposition home or self-care (01) ==
LOC: EC 21:48
DX: K29.20 Alcoholic gastritis without bleeding (principal); F10.121 Alcohol abuse with intoxication delirium; R00.0 Tachycardia, unspecified; I10 Essential (primary) hypertension; K21.9 Gastro-esophageal reflux disease without esophagitis; D50.9 Iron deficiency anemia, unspecified; D69.6 Thrombocytopenia, unspecified; Z88.8 Allergy status to other drugs, medicaments and biological substances; Z91.012 Allergy to eggs; Z91.018 Allergy to other foods; Z91.040 Latex allergy status; Z91.048 Other nonmedicinal substance allergy status; Z79.899 Other long term (current) drug therapy; Z86.14 Personal history of Methicillin resistant Staphylococcus aureus infection; Z86.73 Personal history of transient ischemic attack (TIA), and cerebral infarction without residual deficits; Z90.49 Acquired absence of other specified parts of digestive tract
CPT/HCPCS: 82075 ×2; 36415; 93005; 80053; 82150; 83690; 83735; 84484; 85025; 71046; 99285; 96374; 96375 ×3; 96361 ×10; 96372 ×2; G0480; J1200; J2765; J3411 ×2; J2405; C9113; 80320

== ENCOUNTER 2018-09-22 11:03 | Emergency (ER) | payer OTHER ==
[2018-09-22] MEDS ORDERED: IPRATROPIUM-ALBUTEROL 3 ML NEB INHALATION STA (11:21)
[2018-09-22] MEDS ORDERED: SODIUM CHLORIDE 0.9% 1,000 ML IV STA (11:21)
--- NOTE | 2018-09-22 11:25 | ED ---
General Adult HPI - General Chief complaint: Allergic Reaction Stated complaint: Allergic reaction Time Seen by Provider: 09/22/18 11:03 Source: patient, RN notes reviewed Mode of arrival: EMS Limitations: no limitations - History of Present Illness Initial comments: This is a 63-year-old male presents emergency department with past medical history significant for COPD. Patient states she got up this morning he felt congested had a cough and felt a little more difficult to breathe. Patient states he is able to take a breath. Feels like it's a little bit more short than normal. Patient denies chest pain or palpitations. Patient denies any recent fever or chills. Patient denies abdominal pain patient denies nausea vomiting. Patient denies any headache patient denies numbness weakness. Patient denies lightheadedness or dizziness. She denies any swelling to legs or calf tenderness. - Related Data Home Medications Medication Instructions Recorded Confirmed Ferrous Sulfate [Iron (65 MG 325 mg PO DAILY 04/24/18 09/22/18 Elemental)] Magnesium Oxide [Mag-Ox] 400 mg PO HS 04/24/18 09/22/18 Thiamine Mononitrate (Vit B1) 100 mg PO DAILY 06/21/18 09/22/18 [Vitamin B-1] Famotidine [Pepcid] 20 mg PO BID 08/23/18 09/22/18 amLODIPine [Norvasc] 5 mg PO BID 08/25/18 09/22/18 Previous Rx's Medication Instructions Recorded cloNIDine HCL [Catapres] 0.1 mg PO BID #60 tab 03/26/18 LORazepam [Ativan] 0.5 mg PO BID PRN 3 Days #6 tab 09/07/18 chlordiazePOXIDE HCl [Librium] 10 mg PO TID 3 Days #9 capsule 09/15/18 Allergies Allergy/AdvReac Type Severity Reaction Status Date / Time adhesive tape Allergy Rash/Hives Verified 09/22/18 11:25 latex Allergy Unknown Verified 09/22/18 11:25 egg AdvReac Nausea & Verified 09/22/18 11:25 Vomiting lisinopril AdvReac EYES Verified 09/22/18 11:25 BURN&ITCH/WEAKNESS tomato AdvReac Nausea & Verified 09/22/18 11:25 Vomiting & Diarrhea Review of Systems ROS Statement: Those systems with pertinent positive or pertinent negative responses have been documented in the HPI. ROS Other: All systems not noted in ROS Statement are negative. Past Medical History Past Medical History: Atrial Fibrillation, Cancer, Chest Pain / Angina, COPD, CVA/TIA, Diabetes Mellitus, GERD/Reflux, GI Bleed, Hyperlipidemia, Hypertension, Pneumonia, Prostate Disorder, Pulmonary Embolus (PE) Additional Past Medical History / Comment(s): tachycardia/palpitations likely d/t alcohol withdrawal. hx of Alcoholism, chronic alcoholic cirrhosis with portal hypertension and previous history of upper and lower GI bleeding, esophageal varices, previous history of childhood seizure which he outgrew not taking any antiepileptic medication-possibly had recent seizure-2018 thought d/t alcohol withdrawal, pulmonary embolism x 2 R lung, TIA, diverticulosis, chronic lower bilateral extremity ankle edema if he walks alot, previous history of s epticemia, cervical disc disease with chronic back pain with r sided sciatica, degenerative arthritis involving the lower back, tinnitus, vitamin D deficiency, iron anemia, chronic thrombocytopenia, denies MRSA, C-DIFF , scoliosis. pt had radiation 04/28 for prostate cancer History of Any Multi-Drug Resistant Organisms: C-DIFF, MRSA Date of last positivie culture/infection: N/A MDRO Source:: STOOL Past Surgical History: Appendectomy, Cholecystectomy Additional Past Surgical History / Comment(s): EGDs/esophageal varicies bandings, colonoscopies. Past Anesthesia/Blood Transfusion Reactions: No Reported Reaction Additional Past Anesthesia/Blood Transfusion Reaction / Comment(s): after appendix removed sob Past Psychological History: Anxiety, Depression Smoking Status: Never smoker Past Alcohol Use History: Abuse, Daily Past Drug Use History: None Reported - Past Family History Mother Family Medical History: COPD, CVA/TIA, Dementia Additional Family Medical History / Comment(s): from a stroke Father Family Medical History: Pneumonia Additional Family Medical History / Comment(s): Father of pneumonia when he was close to 80 yrs old. General Exam - General Exam Comments Initial Comments: GENERAL: Patient is well-developed and well-nourished. Patient is nontoxic and well-hydr ated and is in mild distress. ENT: Neck is soft and supple. No significant lymphadenopathy is noted. Oropharynx is clear. Moist mucous membranes. Neck has full range of motion without eliciting any pain. EYES: The sclera were anicteric and conjunctiva were pink and moist. Extraocular movements were intact and pupils were equal round and reactive to light. Eyelids were unremarkable. PULMONARY: Patient has decreased air movement but no actual wheezing is heard. CARDIOVASCULAR: Patient is tachycardic at 120 beats a minute. ABDOMEN: Soft and nontender with normal bowel sounds. SKIN: Skin is clear with no lesions or rashes and otherwise unremarkable. NEUROLOGIC: Patient is alert and oriented x3. Cranial nerves II through XII are grossly intact. Motor and sensory are also intact. Normal speech, volume and content. Symmetrical smile. MUSCULOSKELETAL: Normal extremities with adequate strength and full range of motion. No lower extremity swelling or edema. No calf tenderness. LYMPHATICS: No significant lymphadenopathy is noted PSYCHIATRIC: Normal psychiatric evaluation. Limitations: no limitations Course Vital Signs 09/22/18 09/22/18 09/22/18 11:08 11:24 11:30 Temperature 98.2 F Pulse Rate 142 H 120 H Respiratory 19 Rate Blood Pressure 131/104 134/104 O2 Sat by Pulse 94 L 97 Oximetry 09/22/18 09/22/18 09/22/18 11:32 11:58 12:00 Temperature Pulse Rate 130 H 139 H Respiratory 18 Rate Blood Pressure 127/92 127/92 O2 Sat by Pulse 96 96 Oximetry 09/22/18 09/22/18 09/22/18 12:30 13:00 13:30 Temperature Pulse Rate 113 H Respiratory 18 Rate Blood Pressure 132/86 137/85 138/96 O2 Sat by Pulse 93 L 94 L 93 L Oximetry 09/22/18 09/22/18 13:55 16:23 Temperature 98.7 F Pulse Rate 124 H 116 H Respiratory 16 Rate Blood Pressure 135/98 O2 Sat by Pulse Oximetry Medical Decision Making - Medical Decision Making EKG shows sinus tachycardia at 134 bpm MD interval 150 QRS 70 QT interval 300 QTC is 448. Patient's EKG shows no ST segment elevation or depression I gave the patient a breathing treatment he sounded considerably better with moving good air. Patient appeared to be withdrawing some alcohol he started having some shakes and nausea. Per the patient's d-dimer was elevated so I ordered a CT which showed no pulmonary most. Patient is requesting to go home at this point in time. Patient had potassium and magnesium replacement. - Lab Data Result diagrams: 09/22/18 11:45 09/22/18 11:45 Lab Results 0509/22/18 09/22/18 Range/Units 11:45 11:45 11:45 WBC 3.1 L (3.8-10.6) k/uL RBC 4.12 L (4.30-5.90) m/uL Hgb 13.2 (13.0-17.5) gm/dL Hct 40.0 (39.0-53.0) % MCV 97.1 (80.0-100.0) fL MCH 32.0 (25.0-35.0) pg MCHC 33.0 (31.0-37.0) g/dL RDW 17.3 H (11.5-15.5) % Plt Count 93 L (150-450) k/uL Neutrophils % 67 % Lymphocytes % 23 % Monocytes % 6 % Eosinophils % 1 % Basophils % 0 % Neutrophils # 2.1 (1.3-7.7) k/uL Lymphocytes # 0.7 L (1.0-4.8) k/uL Monocytes # 0.2 (0-1.0) k/uL Eosinophils # 0.0 (0-0.7) k/uL Basophils # 0.0 (0-0.2) k/uL Manual Slide Review Performed Anisocytosis Slight Macrocytosis Slight PT 11.4 (9.0-12.0) sec INR 1.1 (<1.2) APTT 24.5 (22.0-30.0) sec D-Dimer 0.67 H (<0.60) mg/L FEU Sodium 144 (137-145) mmol/L Potassium 3.2 L (3.5-5.1) mmol/L Chloride 101 (98-107) mmol/L Carbon Dioxide 31 H (22-30) mmol/L Anion Gap 12 mmol/L BUN 11 (9-20) mg/dL Creatinine 0.63 L (0.66-1.25) mg/dL Est GFR (CKD-EPI)AfAm >90 (>60 ml/min/1.73 sqM) Est GFR (CKD-EPI)NonAf >90 (>60 ml/min/1.73 sqM) Glucose 138 H (74-99) mg/dL Calcium 9.5 (8.4-10.2) mg/dL Magnesium 1.4 L (1.6-2.3) mg/dL Total Bilirubin 1.2 (0.2-1.3) mg/dL AST 276 H (17-59) U/L ALT 114 H (21-72) U/L Alkaline Phosphatase 219 H (38-126) U/L Troponin I (0.000-0.034) ng/mL Total Protein 7.9 (6.3-8.2) g/dL Albumin 4.3 (3.5-5.0) g/dL Serum Alcohol mg/dL 09/22/18 09/22/18 Range/Units 11:45 13:41 WBC (3.8-10.6) k/uL RBC (4.30-5.90) m/uL Hgb (13.0-17.5) gm/dL Hct (39.0-53.0) % MCV (80.0-100.0) fL MCH (25.0-35.0) pg MCHC (31.0-37.0) g/dL RDW (11.5-15.5) % Plt Count (150-450) k/uL Neutrophils % % Lymphocytes % % Monocytes % % Eosinophils % % Basophils % % Neutrophils # (1.3-7.7) k/uL Lymphocytes # (1.0-4.8) k/uL Monocytes # (0-1.0) k/uL Eosinophils # (0-0.7) k/uL Basophils # (0-0.2) k/uL Manual Slide Review Anisocytosis Macrocytosis PT (9.0-12.0) sec INR (<1.2) APTT (22.0-30.0) sec D-Dimer (<0.60) mg/L FEU Sodium (137-145) mmol/L Potassium (3.5-5.1) mmol/L Chloride (98-107) mmol/L Carbon Dioxide (22-30) mmol/L Anion Gap mmol/L BUN (9-20) mg/dL Creatinine (0.66-1.25) mg/dL Est GFR (CKD-EPI)AfAm (>60 ml/min/1.73 sqM) Est GFR (CKD-EPI)NonAf (>60 ml/min/1.73 sqM) Glucose (74-99) mg/dL Calcium (8.4-10.2) mg/dL Magnesium (1.6-2.3) mg/dL Total Bilirubin (0.2-1.3) mg/dL AST (17-59) U/L ALT (21-72) U/L Alkaline Phosphatase (38-126) U/L Troponin I <0.012 (0.000-0.034) ng/mL Total Protein (6.3-8.2) g/dL Albumin (3.5-5.0) g/dL Serum Alcohol 113 mg/dL Disposition Clinical Impression: COPD exacerbation, Alcohol intoxication, Alcohol withdrawal, Hypomagnesemia, Hypokalemia Disposition: HOME SELF-CARE Instructions (If sedation given, give patient instructions): Abuse of Alcohol (ED) Is patient prescribed a controlled substance at d/c from ED?: No Referrals: Yoon Phillips DO [Primary Care Provider] - 1-2 days Time of Disposition: 15:46
[2018-09-22 12:18] LABS: ALT 114 U/L (21-72); AST 276 U/L (17-59); Albumin 4.3 g/dL (3.5-5.0); Alkaline Phosphatase 219 U/L (38-126); Anion Gap 12 mmol/L; Blood Urea Nitrogen 11 mg/dL (9-20); Calcium 9.5 mg/dL (8.4-10.2); Carbon Dioxide 31 mmol/L (22-30); Chloride 101 mmol/L (98-107); Glucose 138 mg/dL (74-99); Magnesium 1.4 mg/dL (1.6-2.3); Potassium 3.2 mmol/L (3.5-5.1); Sodium 144 mmol/L (137-145); Total Bilirubin 1.2 mg/dL (0.2-1.3); Total Protein 7.9 g/dL (6.3-8.2)
[2018-09-22 12:21] LABS: Anisocytosis Slight; Basophils % (A) 0 %; Eosinophils % (A) 1 %; HGB 13.2 gm/dL (13.0-17.5); Lymphocytes # (A) 0.7 k/uL (1.0-4.8); Lymphocytes % (A) 23 %; MCV 97.1 fL (80.0-100.0); Macrocytosis Slight; Mean Platelet Volume 8.1; Monocytes # (A) 0.2 k/uL (0-1.0); Monocytes % (A) 6 %; Neutrophils # (A) 2.1 k/uL (1.3-7.7); Neutrophils % (A) 67 %; RBC 4.12 m/uL (4.30-5.90); RDW 17.3 % (11.5-15.5); WBC 3.1 k/uL (3.8-10.6)
[2018-09-22 12:35] LABS: INR 1.1 (<1.2); Partial Thromboplastin Time 24.5 sec (22.0-30.0); Prothrombin Time 11.4 sec (9.0-12.0)
[2018-09-22 12:43] LABS: Platelet Count 93 k/uL (150-450)
[2018-09-22 12:49] LABS: D-Dimer 0.67 mg/L FEU (<0.60)
--- NOTE | 2018-09-22 12:58 | XR ---
EXAMINATION TYPE: XR chest 2V DATE OF EXAM: 09/22/2018 COMPARISON: 09/15/2018 HISTORY: 63-year-old male difficulty breathing, shortness of breath TECHNIQUE: PA and lateral views FINDINGS: Patient tilted towards the right. Heart normal size. Aorta within normal limits. Mild interstitial pr ominence. No consolidation or pleural effusion. IMPRESSION: Chronic changes without acute cardiopulmonary process.
[2018-09-22] MEDS ORDERED: SODIUM CHLORIDE 0.9% 1,000 ML IV ONE (13:26)
[2018-09-22] MEDS ORDERED: POTASSIUM CHLORIDE 10 MEQ in WATER FOR INJECTION 1 100ML.BAG IVPB STA (13:26)
[2018-09-22] MEDS: POTASSIUM CHLORIDE ER 20 MEQ TAB.ER PO STA ×2 (13:44→13:48)
[2018-09-22] MEDS ORDERED: ONDANSETRON 4 MG/2 ML VIAL IVP STA (13:58)
--- NOTE | 2018-09-22 14:49 | CT ---
EXAMINATION TYPE: CT chest angio for PE DATE OF EXAM: 09/22/2018 COMPARISON: Radiograph same day HISTORY: 63-year-old male with pain, Allergic reaction. PE. History of PE. History of prostate can cer TECHNIQUE: Contiguous axial scanning of the chest performed with IV Contrast, patient injected with 1 00 ml mL of Isovue 370. Coronal/sagittal MIP reconstructions performed. CT DLP: 305.8 mGycm Automated exposure control for dose reduction was used. FINDINGS: Heart is normal size without pericardial effusion. Coronary vascular calcifications are present. Conventional vessel branching anatomy. Ectasia of the upper descending thoracic aorta 3.1 cm. No thoracic lymphadenopathy by CT size criteria. Some calcified right hilar and subcarinal lymph node s are demonstrated compatible with prior granulomatous disease. Chronic interstitial changes asymmetrically within the left lung with suggestion of some left hemitho racic volume loss. There is mild left lower lobe bronchiectasis. Scattered calcified granulomas. Suboptimal opacification of the pulmonary arterial system. Attenuation is only 158 Hounsfield units. No obvious large central embolus. The degree of opacification is nondiagnostic for lobar more distal branches. Heterogeneous appearance to the liver. There may be subtle nodular contour. Bones: Endplate spondylosis mid to lower thoracic spine. IMPRESSION: 1. SUBOPTIMAL CONTRAST BOLUS. NO DEFINITE LARGE CENTRAL PULMONARY EMBOLUS. LOBAR AND MORE DISTAL BRYAN RIAL BRANCHES ARE NONDIAGNOSTIC. 2. CHRONIC INTERSTITIAL CHANGES ASYMMETRICALLY WITHIN THE LEFT LUNG WITH MILD BRONCHIECTASIS. LIKELY CHRONIC POSTINFLAMMATORY/POSTINFECTIOUS SEQUELA. THERE IS ALSO EVIDENCE OF PRIOR GRANULOMATOUS DISEAS E. 3. HETEROGENEOUS APPEARANCE OF THE LIVER AND SLIGHT CONTOUR NODULARITY. CORRELATE FOR POSSIBLE UNDERL GAYE CIRRHOSIS.
[2018-09-22] MEDS ORDERED: LORazepam 2 MG/ML INJ IV STA (15:47)
[2018-09-22] MEDS ORDERED: MAGNESIUM OXIDE 400 MG TAB PO STA (15:47)
[2018-09-22 16:24] VITALS: BP 135/98; PULSE 116; RESP 16; TEMP 98.7
== END 2018-09-22 16:24 | disposition home or self-care (01) ==
LOC: EC 11:03
DX: J44.1 Chronic obstructive pulmonary disease with (acute) exacerbation (principal); F10.239 Alcohol dependence with withdrawal, unspecified; F10.229 Alcohol dependence with intoxication, unspecified; E83.42 Hypomagnesemia; E87.6 Hypokalemia; R00.0 Tachycardia, unspecified; K21.9 Gastro-esophageal reflux disease without esophagitis; I10 Essential (primary) hypertension; Z79.899 Other long term (current) drug therapy; Z91.048 Other nonmedicinal substance allergy status; Z91.040 Latex allergy status; Z91.018 Allergy to other foods; Z91.012 Allergy to eggs; Z88.8 Allergy status to other drugs, medicaments and biological substances; Z85.46 Personal history of malignant neoplasm of prostate; Z86.711 Personal history of pulmonary embolism; Z86.73 Personal history of transient ischemic attack (TIA), and cerebral infarction without residual deficits
CPT/HCPCS: 99284; 96365; 96366; 96375 ×2; 96360; 36415; 94640; 93005; 85379; 80053; 83735; 84484; 85025; 85610; 85730; 71046; 71275; G0480; J2060; J2405; J3480; Q9967; 80320

== ENCOUNTER 2018-09-27 22:04 | Emergency (ER) | payer OTHER ==
[2018-09-27 22:13] VITALS: BP 144/94; PULSE 129; RESP 18; TEMP 98
[2018-09-27] MEDS ORDERED: MORPHINE SULFATE 4 MG/ML SYRINGE IM STA (22:32)
--- NOTE | 2018-09-27 22:37 | ED ---
Fall HPI - General Source: patient, EMS Mode of arrival: EMS <Shena Vu - Last Filed: 09/30/18 17:04> <Briseida Gotti - Last Filed: 10/05/18 08:19> - General Chief Complaint: Fall Stated Complaint: Fall Time Seen by Provider: 09/27/18 22:22 - History of Present Illness Initial Comments: 63-year-old male patient presents to the emergency department today for evaluation of low back pain and bilateral hip pain after experiencing a fall at home. Patient states about an hour ago he was in the kitchen when he slipped and fell landing on his buttocks. Patient states that he had difficulty moving around due to increased pain in the low back and hips stay called ambulance. Patient states the pain does radiate down both legs to the feet. Denies any numbness or tingling to the lower extremities. Denies loss of bowel or bladder control or saddle anesthesia. Denies hitting his head or losing consciousness. Denies any other injuries. Patient states his have a history of scoliosis but no other back issues. Patient denies any headache, neck pain, chest pain, shortness of breath, dizziness, weakness, abdominal pain, nausea, vomiting, or difficulties with bowel movements or urination. (Shena Vu) - Related Data Home Medications Medication Instructions Recorded Confirmed Ferrous Sulfate [Iron (65 MG 325 mg PO DAILY 04/24/18 09/27/18 Elemental)] Magnesium Oxide [Mag-Ox] 400 mg PO HS 04/24/18 09/27/18 Thiamine Mononitrate (Vit B1) 100 mg PO DAILY 06/21/18 09/27/18 [Vitamin B-1] Famotidine [Pepcid] 20 mg PO BID 08/23/18 09/27/18 amLODIPine [Norvasc] 5 mg PO BID 08/25/18 09/27/18 Previous Rx's Medication Instructions Recorded cloNIDine HCL [Catapres] 0.1 mg PO BID #60 tab 03/26/18 LORazepam [Ativan] 0.5 mg PO BID PRN 3 Days #6 tab 09/07/18 chlordiazePOXIDE HCl [Librium] 10 mg PO TID 3 Days #9 capsule 09/15/18 Allergies Allergy/AdvReac Type Severity Reaction Status Date / Time adhesive tape Allergy Rash/Hives Verified 09/27/18 22:17 latex Allergy Unknown Verified 09/27/18 22:17 egg AdvReac Nausea & Verified 09/27/18 22:17 Vomiting lisinopril AdvReac EYES Verified 09/27/18 22:17 BURN&ITCH/WEAKNESS tomato AdvReac Nausea & Verified 09/27/18 22:17 Vomiting & Diarrhea Review of Systems ROS Other: All systems not noted in ROS Statement are negative. <Shena Vu - Last Filed: 09/30/18 17:04> ROS Other: All systems not noted in ROS Statement are negative. <Briseida Gotti - Last Filed: 10/05/18 08:19> ROS Statement: Those systems with pertinent positive or pertinent negative responses have been documented in the HPI. Past Medical History Past Medical History: Atrial Fibrillation, Cancer, Chest Pain / Angina, COPD, CVA/TIA, Diabetes Mellitus, GERD/Reflux, GI Bleed, Hyperlipidemia, Hypertension, Pneumonia, Prostate Disorder, Pulmonary Embolus (PE) Additional Past Medical History / Comment(s): tachycardia/palpitations likely d/t alcohol withdrawal. hx of Alcoholism, chronic alcoholic cirrhosis with portal hypertension and previous history of upper and lower GI bleeding, esophageal varices, previous history of childhood seizure which he outgrew not taking any antiepileptic medication-possibly had recent seizure-2018 thought d/t alcohol withdrawal, pulmonary embolism x 2 R lung, TIA, diverticulosis, chronic lower bilateral extremity ankle edema if he walks alot, previous history of septicemia, cervical disc disease with chronic back pain with r sided sciatica, degenerative arthritis involving the lower back, tinnitus, vitamin D deficiency, iron anemia, chronic thrombocytopenia, denies MRSA, C-DIFF -2018, scoliosis. pt had radiation 04/28 for prostate cancer History of Any Multi-Drug Resistant Organisms: C-DIFF, MRSA Date of last positivie culture/infection: N/A MDRO Source:: STOOL Past Surgical History: Appendectomy, Cholecystectomy Additional Past Surgical History / Comment(s): EGDs/esophageal varicies bandings, colonoscopies. Past Anesthesia/Blood Transfusion Reactions: No Reported Reaction Additional Past Anesthesia/Blood Transfusion Reaction / Comment(s): after appendix removed sob Past Psychological History: Anxiety, Depression Smoking Status: Never smoker Past Alcohol Use History: Abuse, Daily Past Drug Use History: None Reported - Past Family History Mother Family Medical History: COPD, CVA/TIA, Dementia Additional Family Medical History / Comment(s): from a stroke Father Family Medical History: Pneumonia Additional Family Medical History / Comment(s): Father of pneumonia when he was close to 80 yrs old. <HoraceShena M - Last Filed: 09/30/18 17:04> General Exam Limitations: no limitations General appearance: alert, in no apparent distress, other (Physical well- developed, well-nourished adult male patient in no acute distress. Vital signs upon presentation are temperature 98.0F, pulse 129, respirations 18, blood pressure 144/94, pulse ox 95% on room air.) Eye exam: Present: normal appearance, PERRL, EOMI. Absent: scleral icterus, conjunctival injection, periorbital swelling ENT exam: Present: normal exam, normal oropharynx, mucous membranes moist Neck exam: Present: normal inspection, full ROM, other (Nontender, no step-off, no deformity to firm midline palpation of the posterior cervical spine. Full range of motion without pain or limitation.). Absent: tenderness, meningismus, lymphadenopathy Respiratory exam: Present: normal lung sounds bilaterally. Absent: respiratory distress, wheezes, rales, rhonchi, stridor Cardiovascular Exam: Present: normal rhythm, tachycardia, normal heart sounds. Absent: systolic murmur, diastolic murmur, rubs, gallop, clicks GI/Abdominal exam: Present: soft, normal bowel sounds. Absent: distended, tenderness, guarding, rebound, rigid Extremities exam: Present: normal inspection, full ROM, tenderness (Bilateral lateral hip tenderness), normal capillary refill, other (No shortening or rotation noted to the bilateral lower extremities. Skin to the lower external is is pink, warm, dry. Cap refills less than 3 seconds. Pedal and posttibial pulses are 2+ and equal bilaterally.). Absent: pedal edema, joint swelling, calf tenderness Back exam: Present: normal inspection, vertebral tenderness (There is vertebral tenderness noted over L4 to L5.) Neurological exam: Present: alert, oriented X3, CN II-XII intact Psychiatric exam: Present: normal affect, normal mood Skin exam: Present: warm, dry, intact, normal color. Absent: rash <Shena Vu M - Last Filed: 09/30/18 17:04> Course Vital Signs 09/27/18 22:10 Temperature 98.0 F Pulse Rate 129 H Respiratory 18 Rate Blood Pressure 144/94 O2 Sat by Pulse 95 Oximetry Medical Decision Making - Radiology Data Radiology results: report reviewed, image reviewed <Shena Vu - Last Filed: 09/30/18 17:04> <Briseida Gotti - Last Filed: 10/05/18 08:19> - Medical Decision Making 63-year-old male patient presented to the emergency department today for evaluation of bilateral hip pain and low back pain after experiencing a fall at home. Physical examination did reveal tenderness over the lumbar spine. Patient is neurologically intact no focal deficits. No concerning symptoms for cauda equina. X-ray was obtained of the lumbar spine did show new compression fracture of the endplate of L3 to CT done on 08/23/2018. Did discuss this finding with the patient. This most likely occurred during the fall today. He is able to ambulate. We discharged home with pain medication. Instructed to follow-up with orthopedics for further evaluation as soon as possible. Return parameters discussed in detail. He verbalizes understanding and agrees this plan. (Shena Vu) I was available for consultation in the emergency department. The history and physical exam were done by the midlevel provider. I was consulted for this patient's care. I reviewed the case with the midlevel provider and based on their presentation of the patient, I agree with the assessment, medical decision making and plan of care as documented. Chart was dictated using [employer] dictation software. Attempts were made to correct any dictation errors however some typographical errors may persist. (Briseida Gotti) - Radiology Data 2 views of the lumbar spine are obtained. Report was reviewed in its entirety. Impression by Dr. Schreiber shows age indeterminate compression of the superior endplate of L3 is new since 08/23/2018. History of 4 views of the bilateral hips and pelvis was obtained. Report was reviewed in its entirety. Impression by Dr. Schreiber shows no acute fracture dislocation. (Shena Vu) Disposition Is patient prescribed a controlled substance at d/c from ED?: No <Shena Vu - Last Filed: 09/30/18 17:04> <Briseida Gotti - Last Filed: 10/05/18 08:19> Clinical Impression: Compression fracture of L3 vertebra Disposition: HOME SELF-CARE Condition: Good Instructions (If sedation given, give patient instructions): Vertebral Compression Fracture (ED) Referrals: Yoon Phillips DO [Primary Care Provider] - 1-2 days
[2018-09-27] MEDS ORDERED: ACET/COD 300 MG/30 MG STARTER PACK 6 TAB BTL PO ONE (23:55)
--- NOTE | 2018-09-28 04:17 | XR ---
EXAM: XR Bilateral Hips With Pelvis When Performed, 3 or 4 Views CLINICAL HISTORY: Pain TECHNIQUE: Three or four views of the bilateral hips, with pelvis when performed. COMPARISON: No relevant prior studies available. FINDINGS: Bones/joints: No acute fracture or dislocation. Soft tissues: Unremarkable. IMPRESSION: No acute fracture or dislocation.
--- NOTE | 2018-09-28 04:25 | XR ---
EXAM: XR Lumbar Spine, 2 or 3 Views CLINICAL HISTORY: Pain TECHNIQUE: Frontal and lateral views of the lumbar spine. COMPARISON: 08/23/2018 FINDINGS: Vertebrae: Age-indeterminate compression of the superior endplate of L3. Alignment is maintained. Disc spaces: Degenerative changes. Soft tissues: Surgical clips project over the right upper quadrant. IMPRESSION: Age indeterminate compression of the superior endplate of L3 is new since 08/23/2018.
== END 2018-09-28 00:36 | disposition home or self-care (01) ==
LOC: EC 22:04
DX: S32.030A Wedge compression fracture of third lumbar vertebra, initial encounter for closed fracture (principal); I48.91 Unspecified atrial fibrillation; K21.9 Gastro-esophageal reflux disease without esophagitis; I10 Essential (primary) hypertension; D64.9 Anemia, unspecified; E11.9 Type 2 diabetes mellitus without complications; F32.9 Major depressive disorder, single episode, unspecified; F41.9 Anxiety disorder, unspecified; Z91.040 Latex allergy status; Z85.46 Personal history of malignant neoplasm of prostate; Z86.14 Personal history of Methicillin resistant Staphylococcus aureus infection; Z86.73 Personal history of transient ischemic attack (TIA), and cerebral infarction without residual deficits; Z86.711 Personal history of pulmonary embolism; Z91.012 Allergy to eggs; Z91.018 Allergy to other foods; Z88.8 Allergy status to other drugs, medicaments and biological substances; W01.0XXA Fall on same level from slipping, tripping and stumbling without subsequent striking against object, initial encounter; Y92.000 Kitchen of unspecified non-institutional (private) residence as the place of occurrence of the external cause
CPT/HCPCS: 72110; 73521; 99284; 96372; J2270

== ENCOUNTER 2018-10-08 18:07 | Inpatient (IN) | payer OTHER ==
[2018-10-08] MEDS ORDERED: SODIUM CHLORIDE 0.9% 1,000 ML IV STA (18:08)
--- NOTE | 2018-10-08 18:13 | ED ---
Trauma HPI - General Stated Complaint: FALL FROM STANDING Time Seen by Provider: 10/08/18 18:08 - History of Present Illness Initial Comments: Anders is a 63-year-old alcoholic male very well-known to our emergency Department who presents today via EMS for evaluation of head and neck and back pain after fall. Patient reports he's had about a fifth of liquor today, he states he was trying to get some he have his refrigerator when he stepped on something was slipping backwards and falling onto his back and head. He doesn't believe he lost consciousness. He is not on any antiplatelet or anticoagulant medications. - Related Data Home Medications Medication Instructions Recorded Confirmed Ferrous Sulfate [Iron (65 MG 325 mg PO DAILY 04/24/18 10/08/18 Elemental)] Magnesium Oxide [Mag-Ox] 400 mg PO HS 04/24/18 10/08/18 Thiamine Mononitrate (Vit B1) 100 mg PO DAILY 06/21/18 10/08/18 [Vitamin B-1] Famotidine [Pepcid] 20 mg PO BID 08/23/18 10/08/18 amLODIPine [Norvasc] 5 mg PO BID 08/25/18 10/08/18 Previous Rx's Medication Instructions Recorded cloNIDine HCL [Catapres] 0.1 mg PO BID #60 tab 03/26/18 LORazepam [Ativan] 0.5 mg PO BID PRN 3 Days #6 tab 09/07/18 chlordiazePOXIDE HCl [Librium] 10 mg PO TID 3 Days #9 capsule 09/15/18 Allergies Allergy/AdvReac Type Severity Reaction Status Date / Time adhesive tape Allergy Rash/Hives Verified 10/08/18 18:10 latex Allergy Unknown Verified 10/08/18 18:10 egg AdvReac Nausea & Verified 10/08/18 18:10 Vomiting lisinopril AdvReac EYES Verified 10/08/18 18:10 BURN&ITCH/WEAKNESS tomato AdvReac Nausea & Verified 10/08/18 18:10 Vomiting & Diarrhea Review of Systems ROS Statement: Those systems with pertinent positive or pertinent negative responses have been documented in the HPI. ROS Other: All systems not noted in ROS Statement are negative. Past Medical History Past Medical History: Atrial Fibrillation, Cancer, Chest Pain / Angina, COPD, CVA/TIA, Diabetes Mellitus, GERD/Reflux, GI Bleed, Hyperlipidemia, Hypertension, Pneumonia, Prostate Disorder, Pulmonary Embolus (PE) Additional Past Medical History / Comment(s): tachycardia/palpitations likely d/t alcohol withdrawal. hx of Alcoholism, chronic alcoholic cirrhosis with portal hypertension and previous history of upper and lower GI bleeding, esophageal varices, previous history of childhood seizure which he outgrew not taking any antiepileptic medication-possibly had recent seizure-2018 thought d/t alcohol withdrawal, pulmonary embolism x 2 R lung, TIA, diverticulosis, chronic lower bilateral extremity ankle edema if he walks alot, previous history of septicemia, cervical disc disease with chronic back pain with r sided sciatica, degenerative arthritis involving the lower back, tinnitus, vitamin D deficiency, iron anemia, chronic thrombocytopenia, denies MRSA, C-DIFF -2018, scoliosis. pt had radiation 04/28 for prostate cancer History of Any Multi-Drug Resistant Organisms: C-DIFF, MRSA Date of last positivie culture/infection: N/A MDRO Source:: STOOL Past Surgical History: Appendectomy, Cholecystectomy Additional Past Surgical History / Comment(s): EGDs/esophageal varicies bandings, colonoscopies. Past Anesthesia/Blood Transfusion Reactions: No Reported Reaction Additional Past Anesthesia/Blood Transfusion Reaction / Comment(s): after appendix removed sob Past Psychological History: Anxiety, Depression Smoking Status: Never smoker Past Alcohol Use History: Abuse, Daily Past Drug Use History: None Reported - Past Family History Mother Family Medical History: COPD, CVA/TIA, Dementia Additional Family Medical History / Comment(s): from a stroke Father Family Medical History: Pneumonia Additional Family Medical History / Comment(s): Father of pneumonia when he was close to 80 yrs old. General Exam - General Exam Comments Initial Comments: Physical Exam GENERAL: Patient is well-developed and well-nourished. Patient is nontoxic and well-hydrated and is in no distress. Smells of alcohol HENT: Normocephalic, Atraumatic EYES: PERRL, EOMI PULMONARY: Unlabored respirations. No audible rales rhonchi or wheezing was noted. CARDIOVASCULAR: There is a regular rate and rhythm without any murmurs gallops or rubs. ABDOMEN: Soft and nontender with normal bowel sounds. SKIN: Skin is clear with no lesions or rashes and otherwise unremarkable. : Deferred NEUROLOGIC: Patient is alert and oriented x3. Moving all extremities spontaneously Slurred speech MUSCULOSKELETAL: Normal extremities with adequate strength and full range of motion. No lower extremity swelling or edema. No calf tenderness. PSYCHIATRIC: Normal psychiatric evaluation Course Vital Signs 10/08/18 10/08/18 18:10 20:00 Temperature 98.7 F Pulse Rate 111 H 100 Respiratory 18 19 Rate Blood Pressure 162/101 143/97 O2 Sat by Pulse 95 100 Oximetry Medical Decision Making - Medical Decision Making Patient was seen and evaluated history was obtained from patient and sinuses patient with a ground-level fall from standing presenting with head neck and back pain Given the patient is very clearly intoxicated cervical collar will remain in place until imaging is completed EKG was obtained at 6.5, rate is 110 rhythm is sinus tachycardia there is leftward axis normal intervals [place] 160 QRS 76 QTC 4 of [address] elevations or depressions no evidence of acute ischemia or infarction. Imaging with no acute injury Labs with worsening alcoholic liver disease, patient with alcohol level of 367 will be admitted to the hospital for couple intoxication and concern for impending withdrawal. - Lab Data Result diagrams: 10/08/18 18:16 10/08/18 18:16 Lab Results 10/08/18 10/08/18 10/08/18 Range/Units 18:16 18:16 18:16 WBC 3.3 L (3.8-10.6) k/uL RBC 4.35 (4.30-5.90) m/uL Hgb 13.4 (13.0-17.5) gm/dL Hct 41.6 (39.0-53.0) % MCV 95.7 (80.0-100.0) fL MCH 30.8 (25.0-35.0) pg MCHC 32.2 (31.0-37.0) g/dL RDW 17.1 H (11.5-15.5) % Plt Count 94 L (150-450) k/uL Neutrophils % 58 % Lymphocytes % 32 % Monocytes % 6 % Eosinophils % 0 % Basophils % 1 % Neutrophils # 1.9 (1.3-7.7) k/uL Lymphocytes # 1.0 (1.0-4.8) k/uL Monocytes # 0.2 (0-1.0) k/uL Eosinophils # 0.0 (0-0.7) k/uL Basophils # 0.0 (0-0.2) k/uL Anisocytosis Slight PT 12.9 H (9.0-12.0) sec INR 1.3 H (<1.2) APTT 27.7 (22.0-30.0) sec Sodium 145 (137-145) mmol/L Potassium 4.0 (3.5-5.1) mmol/L Chloride 102 (98-107) mmol/L Carbon Dioxide 30 (22-30) mmol/L Anion Gap 13 mmol/L BUN 10 (9-20) mg/dL Creatinine 0.58 L (0.66-1.25) mg/dL Est GFR (CKD-EPI)AfAm >90 (>60 ml/min/1.73 sqM) Est GFR (CKD-EPI)NonAf >90 (>60 ml/min/1.73 sqM) Glucose 112 H (74-99) mg/dL Calcium 8.1 L (8.4-10.2) mg/dL Total Bilirubin 2.0 H (0.2-1.3) mg/dL AST 327 H (17-59) U/L ALT 77 H (21-72) U/L Alkaline Phosphatase 374 H (38-126) U/L Troponin I (0.000-0.034) ng/mL Total Protein 7.9 (6.3-8.2) g/dL Albumin 4.1 (3.5-5.0) g/dL Serum Alcohol 367 H* mg/dL Blood Type Blood Type Recheck Antibody Screen Spec Expiration Date 10/08/18 10/08/18 Range/Units 18:16 18:16 WBC (3.8-10.6) k/uL RBC (4.30-5.90) m/uL Hgb (13.0-17.5) gm/dL Hct (39.0-53.0) % MCV (80.0-100.0) fL MCH (25.0-35.0) pg MCHC (31.0-37.0) g/dL RDW (11.5-15.5) % Plt Count (150-450) k/uL Neutrophils % % Lymphocytes % % Monocytes % % Eosinophils % % Basophils % % Neutrophils # (1.3-7.7) k/uL Lymphocytes # (1.0-4.8) k/uL Monocytes # (0-1.0) k/uL Eosinophils # (0-0.7) k/uL Basophils # (0-0.2) k/uL Anisocytosis PT (9.0-12.0) sec INR (<1.2) APTT (22.0-30.0) sec Sodium (137-145) mmol/L Potassium (3.5-5.1) mmol/L Chloride (98-107) mmol/L Carbon Dioxide (22-30) mmol/L Anion Gap mmol/L BUN (9-20) mg/dL Creatinine (0.66-1.25) mg/dL Est GFR (CKD-EPI)AfAm (>60 ml/min/1.73 sqM) Est GFR (CKD-EPI)NonAf (>60 ml/min/1.73 sqM) Glucose (74-99) mg/dL Calcium (8.4-10.2) mg/dL Total Bilirubin (0.2-1.3) mg/dL AST (17-59) U/L ALT (21-72) U/L Alkaline Phosphatase (38-126) U/L Troponin I <0.012 (0.000-0.034) ng/mL Total Protein (6.3-8.2) g/dL Albumin (3.5-5.0) g/dL Serum Alcohol mg/dL Blood Type A Positive Blood Type Recheck No Antibody Screen NEGATIVE Spec Expiration Date 10/11/2018 - 2316 Disposition Clinical Impression: Fall, Alcoholic liver disease, Alcohol intoxication, Chronic pain, Compression fracture of L3 vertebra Disposition: ADMITTED IP TO THIS [facility] Condition: Serious Instructions (If sedation given, give patient instructions): Fall Prevention for Older Adults (ED) Referrals: Yoon Phillips DO [Primary Care Provider] - 1-2 days
[2018-10-08 18:29] LABS: Anisocytosis Slight; Basophils % (A) 1 %; Eosinophils % (A) 0 %; HCT 41.6 % (39.0-53.0); HGB 13.4 gm/dL (13.0-17.5); Lymphocytes % (A) 32 %; MCH 30.8 pg (25.0-35.0); MCHC 32.2 g/dL (31.0-37.0); MCV 95.7 fL (80.0-100.0); Mean Platelet Volume 7.7; Monocytes # (A) 0.2 k/uL (0-1.0); Monocytes % (A) 6 %; Neutrophils # (A) 1.9 k/uL (1.3-7.7); Neutrophils % (A) 58 %; RBC 4.35 m/uL (4.30-5.90); RDW 17.1 % (11.5-15.5); WBC 3.3 k/uL (3.8-10.6)
[2018-10-08 18:33] LABS: Platelet Count 94 k/uL (150-450)
[2018-10-08 18:39] LABS: ALT 77 U/L (21-72); AST 327 U/L (17-59); Albumin 4.1 g/dL (3.5-5.0); Alkaline Phosphatase 374 U/L (38-126); Anion Gap 13 mmol/L; Blood Urea Nitrogen 10 mg/dL (9-20); Calcium 8.1 mg/dL (8.4-10.2); Carbon Dioxide 30 mmol/L (22-30); Chloride 102 mmol/L (98-107); Glucose 112 mg/dL (74-99); Sodium 145 mmol/L (137-145); Total Protein 7.9 g/dL (6.3-8.2)
--- NOTE | 2018-10-08 18:47 | XR ---
EXAMINATION TYPE: XR chest 1V portable DATE OF EXAM: 10/08/2018 COMPARISON: Prior chest x-ray 09/22/2018 HISTORY: Trauma and pain TECHNIQUE: Single frontal view of the chest is obtained. FINDINGS: Patient is rotated, there may be underlying scoliosis. There are overlying cardiac leads. A williams is dense. There is no focal air space opacity, pleural effusion, or pneumothorax seen. The card iac silhouette size is within normal limits. The osseous structures are intact. IMPRESSION: No acute process.
[2018-10-08 18:50] LABS: Alcohol 367 mg/dL
[2018-10-08 18:56] LABS: INR 1.3 (<1.2); Partial Thromboplastin Time 27.7 sec (22.0-30.0); Prothrombin Time 12.9 sec (9.0-12.0)
--- NOTE | 2018-10-08 19:51 | CT ---
EXAMINATION TYPE: CT brain cspine wo con DATE OF EXAM: 10/08/2018 COMPARISON: Prior head CT 12/07/2017 HISTORY: Trauma and pain Fall injury, intoxication, all over body pain CT DLP: 1379.7 mGycm Automated exposure control for dose reduction was used. TECHNIQUE: CT scan of the head and cervical spine are performed without contrast. FINDINGS: There is no acute intracranial hemorrhage, mass effect, or midline shift identified. The ventricles and sulci are within normal limits in size. The globes are intact and the visualized sin uses are clear. Cervical spine is visualized in its entirety from C1 through upper thoracic levels and demonstrates s atisfactory alignment without evidence of acute fracture or dislocation. Prevertebral soft tissue ap pears within normal limits. The C1-C2 articulation is unremarkable. There is multilevel spondylosis with loss of disc height. Multilevel facet arthropathy, foraminal encroachment. IMPRESSION: 1. There is no acute fracture or dislocation evident in the cervical spine. 2. No acute intracranial hemorrhage, mass effect, or midline shift is seen.
--- NOTE | 2018-10-08 20:04 | CT ---
EXAMINATION TYPE: CT ChestAbdPelvis wo con DATE OF EXAM: 10/08/2018 COMPARISON: CT chest 09/22/2018, 09/04/2018 lumbar spine plain film 09/27/2018 HISTORY: Fall injury, intoxication, all over body pain CT DLP: 686.2 mGycm. Automated Exposure Control for Dose Reduction was Utilized. TECHNIQUE: CT scan of the thorax, abdomen and pelvis is performed without IV contrast. FINDINGS: Lack of intravenous contrast could compromise sensitivity. There is some motion on the exam . LUNGS: The lungs are grossly clear, there are scattered granulomas. There is no pleural effusion or pneumothorax seen. The tracheobronchial tree is patent. MEDIASTINUM: There are no greater than 1 cm hilar or mediastinal lymph nodes. There are calcified med iastinal nodes. Volume loss present in the left hemithorax. No pericardial effusion is seen. OTHER: Aorta shows caliber approximately 3.1 cm proximal descending aorta. There are coronary artery calcifications present. LIVER/GB: Liver shows heterogeneous density and nodular appearance compatible with underlying hepatocellular disease, possible cirrhosis, patient is post cholecystectomy PANCREAS: No significant abnormality is seen. SPLEEN: There is a granuloma present within the spleen ADRENALS: No significant abnormality is seen. KIDNEYS: No significant abnormality is seen. BOWEL: No significant abnormality is seen. GENITAL ORGANS: There is prostatic enlargement. LYMPH NODES: No greater than 1cm abdominal or pelvic lymph nodes are appreciated. OSSEOUS STRUCTURES: Superior endplate of L3 shows compression fracture with minimal retropulsion, sim ilar finding on prior plain film 09/27/2018. Anterior wedge compression deformity also present at T4 . OTHER: Urinary bladder shows wall thickening possibly due to chronic outlet obstruction. IMPRESSION: No acute osseous fracture, abnormal fluid collection, or evidence of solid organ injury i n the thorax, abdomen, or pelvis. Additional findings above.
--- NOTE | 2018-10-08 20:07 | CT ---
EXAMINATION TYPE: CT thor lumbar spine wo con DATE OF EXAM: 10/08/2018 COMPARISON: CT chest abdomen pelvis same date and CT 09/04/2018, plain film lumbar spine 09/27/2018 HISTORY: Trauma and pain Fall injury, intoxication, all over body pain CT DLP: 686.2 mGycm Automated exposure control for dose reduction was used. Reconstructions from patient's chest abdomen pelvis CT performed. FINDINGS: Anterior wedge compression deformity at T4 is again noted. This is a chronic finding. Superior endpla te compression fracture at L3 is noted as on prior, there is retropulsion of approximately 6 to 7 mm causing some mild to moderate central stenosis. No other significant findings. There is multilevel sp ondylosis present. No acute fracture or subluxation is evident. IMPRESSION: STABLE COMPRESSION FRACTURES, THERE IS RETROPULSION AT L3.
[2018-10-08] MEDS ORDERED: LORazepam 2 MG/ML INJ IV PRN (20:39)
[2018-10-08] MEDS ORDERED: THIAMINE 100 MG/ML 2 ML VIAL IM STA (20:39)
[2018-10-08] MEDS ORDERED: NALOXONE 0.4 MG/ML 1 ML VIAL IV PRN (20:51)
[2018-10-08 22:17] LABS: Appearance,Urine Clear (Clear); Bilirubin,Urine Negative (Negative); Blood,Urine Negative (Negative); Color,Urine Yellow; Glucose,Urine (UA) Negative (Negative); Ketones,Urine Negative (Negative); Leukocyte Esterase,Urine Negative (Negative); Nitrite,Urine Negative (Negative); Protein,Urine Negative (Negative); Specific Gravity,Urine 1.012 (1.001-1.035)
[2018-10-08] MEDS: IBUPROFEN 400 MG TAB PO PRN (22:20)
[2018-10-08] MEDS: THIAMINE 100 MG TAB PO SCH ×2 (22:21→22:22)
[2018-10-08 22:35] VITALS: BMI 26.9
[2018-10-08 22:36] LABS: Amphetamine Screen,Urine Not Detected (NotDetected); Barbiturate Screen,Urine Not Detected (NotDetected); Benzodiazepines Screen,Urine Detected (NotDetected); Cocaine Screen,Urine Not Detected (NotDetected); Methadone Screen, Urine Not Detected (NotDetected); Opiate Screen,Urine Detected (NotDetected); Oxycodone Screen, Urine Not Detected (NotDetected); Phencyclidine Screen,Urine Not Detected (NotDetected); Tricyclic Antidepressant,Urine Not Detected (NotDetected); Urn Cannabinoid Scrn Not Detected (NotDetected)
[2018-10-08] MEDS: LORazepam 2 MG/ML INJ IV PRN (22:59)
[2018-10-09] MEDS: LORazepam 2 MG/ML INJ IV PRN ×5 (01:51→20:43)
[2018-10-09 07:32] LABS: ALT 79 U/L (21-72); AST 315 U/L (17-59); Albumin 3.6 g/dL (3.5-5.0); Alkaline Phosphatase 301 U/L (38-126); Anion Gap 10 mmol/L; Blood Urea Nitrogen 12 mg/dL (9-20); Calcium 7.8 mg/dL (8.4-10.2); Carbon Dioxide 32 mmol/L (22-30); Chloride 98 mmol/L (98-107); Glucose 104 mg/dL (74-99); Potassium 3.2 mmol/L (3.5-5.1); Sodium 140 mmol/L (137-145); Total Bilirubin 1.9 mg/dL (0.2-1.3)
[2018-10-09 07:34] LABS: Glucose,Whole Blood 116 mg/dL (75-99)
[2018-10-09] MEDS ORDERED: Potassium Replacement Protocol 1 EACH MISC MISCELLANE PRN (07:42)
[2018-10-09] MEDS: POTASSIUM CHLORIDE ER 20 MEQ TAB.ER PO SCH ×2 (08:40→10:24)
[2018-10-09] MEDS: amLODIPine 5 MG TAB PO SCH ×2 (08:41→20:42)
[2018-10-09] MEDS: FAMOTIDINE 20 MG TAB PO SCH ×2 (08:41→20:43)
[2018-10-09] MEDS: FERROUS SULFATE 325 MG TAB PO SCH (08:41)
[2018-10-09] MEDS: cloNIDine HCL 0.1 MG TAB PO SCH ×2 (08:41→20:42)
[2018-10-09] MEDS: THIAMINE 100 MG TAB PO SCH ×2 (08:41→17:37)
[2018-10-09] MEDS: IBUPROFEN 400 MG TAB PO PRN ×2 (09:02→17:37)
[2018-10-09 09:03] LABS: Anisocytosis Slight; Basophils % (A) 1 %; Eosinophils % (A) 1 %; HCT 37.4 % (39.0-53.0); HGB 12.3 gm/dL (13.0-17.5); Lymphocytes # (A) 0.7 k/uL (1.0-4.8); Lymphocytes % (A) 23 %; MCH 31.7 pg (25.0-35.0); MCV 96.1 fL (80.0-100.0); Mean Platelet Volume 8.5; Monocytes # (A) 0.2 k/uL (0-1.0); Monocytes % (A) 6 %; Neutrophils # (A) 2.1 k/uL (1.3-7.7); Neutrophils % (A) 67 %; RBC 3.89 m/uL (4.30-5.90); RDW 17.1 % (11.5-15.5); WBC 3.2 k/uL (3.8-10.6)
[2018-10-09 09:04] LABS: Platelet Count 65 k/uL (150-450)
--- NOTE | 2018-10-09 11:39 | P.HPIM ---
History of Present Illness H&P Date: 10/09/18 Anders Aguilar is a 63-year-old male who presented to [facility] emergency room due to alcohol intoxication and fall with severe back pain he was evaluated in the emergency room computed tomography scan of the brain, cervical, thoracic, lumbar spine was done and did not reveal any new fracture, that was stable old compression fracture in the thoracic spine, there is retropulsion at L3. Patient was seen and examined on the medical floor on 10/09/2018 he was alert and oriented 3 in no apparent distress he is still complaining of severe pain in the lower back radiating to bilateral lower extremities he was unable to stand or walk due to severe pain. Otherwise he denies any complaints there is no fever or chills no headache or dizziness no chest pain no shortness of breath no cough no nausea or vomiting no abdominal pain no diarrhea and no urinary symptoms. He is starting to have some tremors he is maintained on the CIWA protocol. Patient had multiple previous admissions to the hospital he has known history of coronary artery disease, atrial fibrillation, diabetes mellitus, history of GI bleed, history of CVA, history of pulmonary embolus, and history of benign pr ostatic hypertrophy. He had difficulty with alcohol intoxication and had multiple admissions for that in the past. Past Medical History Past Medical History: Atrial Fibrillation, Cancer, Chest Pain / Angina, COPD, CVA/TIA, Diabetes Mellitus, GERD/Reflux, GI Bleed, Hyperlipidemia, Hypertension, Pneumonia, Prostate Disorder, Pulmonary Embolus (PE) Additional Past Medical History / Comment(s): tachycardia/palpitations likely d/t alcohol withdrawal. hx of Alcoholism, chronic alcoholic cirrhosis with portal hypertension and previous history of upper and lower GI bleeding, esophageal varices, previous history of childhood seizure which he outgrew not taking any antiepileptic medication-possibly had recent seizure-2017 thought d/t alcohol withdrawal, pulmonary embolism x 2 R lung, TIA, diverticulosis, chronic lower bilateral extremity ankle edema if he walks alot, previous history of septicemia, cervical disc disease with chronic back pain with r sided sciatica, degenerative arthritis involving the lower back, tinnitus, vitamin D deficiency, iron anemia, chronic thrombocytopenia, denies MRSA, C-DIFF -2018, scoliosis, scoliosis. pt had radiation 04/28 for prostate cancer History of Any Multi-Drug Resistant Organisms: C-DIFF, MRSA Date of last positivie culture/infection: n/a MDRO Source:: STOOL Past Surgical History: Appendectomy, Cholecystectomy Additional Past Surgical History / Comment(s): EGDs/esophageal varicies bandings, colonoscopies. Past Anesthesia/Blood Transfusion Reactions: No Reported Reaction Additional Past Anesthesia/Blood Transfusion Reaction / Comment(s): after appendix removed sob Past Psychological History: Anxiety, Depression Additional Psychological History / Comment(s): Pt lives in an apartment alone. Apartment complex has front door ramp and has an elevator. no pets. Sometimes his sister stays with him and cleans his home. He uses a cane to ambulate at times. He drives but currently has no car. He gets to [facility] by [employer] bus. He has a nebulizer and a glucometer.pt stated he was getting [facility] home care nurse but has'nt seen them in few days,not sure if they're still coming. Used to work in [employer]. Relates that he's not been a smoker. Denies recreational drug use. His left him many years ago he has adult ch ildren that he does not see very often. No experience. No travel history. No animal exposures Smoking Status: Never smoker Past Alcohol Use History: Abuse, Daily Additional Past Alcohol Use History / Comment(s): pt reports normally drinks 2 fifths per week. 10/08 admission drank 1 fifth prior to admission Past Drug Use History: None Reported - Past Family History Mother Family Medical History: COPD, CVA/TIA, Dementia Additional Family Medical History / Comment(s): from a stroke Father Family Medical History: Pneumonia Additional Family Medical History / Comment(s): Father of pneumonia when he was close to 80 yrs old. Medications and Allergies Home Medications Medication Instructions Recorded Confirmed Type cloNIDine HCL [Catapres] 0.1 mg PO BID #60 tab 03/26/18 10/08/18 Rx Ferrous Sulfate [Iron (65 MG 325 mg PO DAILY 04/24/18 10/08/18 History Elemental)] Magnesium Oxide [Mag-Ox] 400 mg PO HS 04/24/18 10/08/18 History Thiamine Mononitrate (Vit B1) 100 mg PO DAILY 06/21/18 10/08/18 History [Vitamin B-1] Famotidine [Pepcid] 20 mg PO BID 08/23/18 10/08/18 History amLODIPine [Norvasc] 5 mg PO BID 08/25/18 10/08/18 History LORazepam [Ativan] 0.5 mg PO BID PRN 3 Days #6 tab 09/07/18 10/08/18 Rx chlordiazePOXIDE HCl [Librium] 10 mg PO TID 3 Days #9 capsule 09/15/18 10/08/18 Rx Allergies Allergy/AdvReac Type Severity Reaction Status Date / Time adhesive tape Allergy Rash/Hives Verified 10/08/18 18:10 latex Allergy Unknown Verified 10/08/18 18:10 egg AdvReac Nausea & Verified 10/08/18 18:10 Vomiting lisinopril AdvReac EYES Verified 10/08/18 18:10 BURN&ITCH/WEAKNESS tomato AdvReac Nausea & Verified 10/08/18 18:10 Vomiting & Diarrhea Physical Exam Vitals: Vital Signs Temp Pulse Pulse Resp BP BP Pulse Ox 10/09/18 05:58 95 10/09/18 04:39 98.4 F 98 16 131/77 90 L 10/08/18 22:22 98.3 F 98 18 140/73 95 10/08/18 21:10 102 H 13 140/93 10/08/18 21:00 102 H 16 146/97 10/08/18 20:10 106 H 16 148/102 10/08/18 20:09 103 H 14 148/102 10/08/18 20:00 100 19 143/97 100 10/08/18 18:10 98.7 F 111 H 18 162/101 95 Intake and Output 10/08/18 10/09/18 10/09/18 22:59 06:59 14:59 Intake Total 540 Balance 540 Intake: Oral 540 Other: Voiding Method Urinal Urinal # Voids 1 1 # Bowel Movements 1 Weight 74.389 kg In general patient is alert and oriented 3 in no apparent distress HEENT head normocephalic and atraumatic Neck is supple no JVD no goiter no lymphadenopathy Chest exam is clear to auscultation no crackles no wheezing Cardiac exam reveals regular heart sounds S1 and S2 no gallops no murmurs Abdomen is soft nontender no organomegaly was normal bowel sounds Extremity exam reveals no edema no cyanosis or clubbing Neurological examination reveals no gross focal neurological deficit Results CBC & Chem 7: 10/09/18 06:42 05/26/19 06:42 Labs: Abnormal Lab Results - Last 24 Hours (Table) 10/08/18 10/08/18 10/08/18 Range/Units 18:16 18:16 18:16 WBC 3.3 L (3.8-10.6) k/uL RBC (4.30-5.90) m/uL Hgb (13.0-17.5) gm/dL Hct (39.0-53.0) % RDW 17.1 H (11.5-15.5) % Plt Count 94 L (150-450) k/uL Lymphocytes # (1.0-4.8) k/uL PT 12.9 H (9.0-12.0) sec INR 1.3 H (<1.2) Potassium (3.5-5.1) mmol/L Carbon Dioxide (22-30) mmol/L Creatinine 0.58 L (0.66-1.25) mg/dL Glucose 112 H (74-99) mg/dL POC Glucose (mg/dL) (75-99) mg/dL Calcium 8.1 L (8.4-10.2) mg/dL Magnesium (1.6-2.3) mg/dL Total Bilirubin 2.0 H (0.2-1.3) mg/dL AST 327 H (17-59) U/L ALT 77 H (21-72) U/L Alkaline Phosphatase 374 H (38-126) U/L Urine Opiates Screen (NotDetected) U Benzodiazepines Scrn (NotDetected) Serum Alcohol 367 H* mg/dL 10/08/18 10/09/18 10/09/18 Range/Units 22:03 06:42 06:42 WBC 3.2 L (3.8-10.6) k/uL RBC 3.89 L (4.30-5.90) m/uL Hgb 12.3 L (13.0-17.5) gm/dL Hct 37.4 L (39.0-53.0) % RDW 17.1 H (11.5-15.5) % Plt Count 65 L (150-450) k/uL Lymphocytes # 0.7 L (1.0-4.8) k/uL PT (9.0-12.0) sec INR (<1.2) Potassium 3.2 L (3.5-5.1) mmol/L Carbon Dioxide 32 H (22-30) mmol/L Creatinine 0.61 L (0.66-1.25) mg/dL Glucose 104 H (74-99) mg/dL POC Glucose (mg/dL) (75-99) mg/dL Calcium 7.8 L (8.4-10.2) mg/dL Magnesium 1.0 L (1.6-2.3) mg/dL Total Bilirubin 1.9 H (0.2-1.3) mg/dL AST 315 H (17-59) U/L ALT 79 H (21-72) U/L Alkaline Phosphatase 301 H (38-126) U/L Urine Opiates Screen Detected H (NotDetected) U Benzodiazepines Scrn Detected H (NotDetected) Serum Alcohol mg/dL 10/09/18 Range/Units 07:32 WBC (3.8-10.6) k/uL RBC (4.30-5.90) m/uL Hgb (13.0-17.5) gm/dL Hct (39.0-53.0) % RDW (11.5-15.5) % Plt Count (150-450) k/uL Lymphocytes # (1.0-4.8) k/uL PT (9.0-12.0) sec INR (<1.2) Potassium (3.5-5.1) mmol/L Carbon Dioxide (22-30) mmol/L Creatinine (0.66-1.25) mg/dL Glucose (74-99) mg/dL POC Glucose (mg/dL) 116 H (75-99) mg/dL Calcium (8.4-10.2) mg/dL Magnesium (1.6-2.3) mg/dL Total Bilirubin (0.2-1.3) mg/dL AST (17-59) U/L ALT (21-72) U/L Alkaline Phosphatase (38-126) U/L Urine Opiates Screen (NotDetected) U Benzodiazepines Scrn (NotDetected) Serum Alcohol mg/dL Thrombosis Risk Factor Assmnt - Choose All That Apply Any of the Below Risk Factors Present?: Yes Each Factor Represents 1 point: Abnormal pulmonary function (COPD), Obesity (BMI >25) Other Risk Factors: Yes Each Risk Factor Represents 2 Points: Age 61-74 years Other congenital or acquired thrombophilia - If yes, enter type in comment: No Thrombosis Risk Factor Assessment Total Risk Factor Score: 4 Thrombosis Risk Factor Assessment Level: Moderate Risk Assessment and Plan Plan: #1 alcohol intoxication was early alcohol withdrawal #2 fall with severe back pain #3 physical debility with inability to stand or walk #4 underlying history of COPD stable at this time #5 underlying history of liver cirrhosis with portal hypertension and esophageal #6 underlying history of COPD, without evidence of exacerbation at this time #7 previous history of Clostridium difficile colitis At this time patient is admitted to medical floor CIWA protocol was initiated Patient is unable to stand or walk will check bilateral hips x-ray Will consult orthopedic in regard to back pain with L3 retropulsion Medications were reviewed and reordered Patient counseled in length regarding her recurrent alcohol intoxication
[2018-10-09 11:43] LABS: Glucose,Whole Blood 119 mg/dL (75-99)
--- NOTE | 2018-10-09 14:40 | XR ---
EXAMINATION TYPE: XR Hip Bilateral Complete DATE OF EXAM: 10/09/2018 COMPARISON: None HISTORY: Fall, pain TECHNIQUE: Bilateral hips are examined in 2 projections each FINDINGS: Right hip: Femoral head articulates with the acetabulum. Joint spaces preserved. No acute fracture or dislocation is evident. Left hip: Femoral head articulates with the acetabulum. Joint spaces preserved. No acute fracture or dislocation is evident. IMPRESSION: 1. No acute osseous abnormalities bilateral hips.
[2018-10-09 17:09] LABS: Glucose,Whole Blood 121 mg/dL (75-99)
[2018-10-09 20:03] LABS: Glucose,Whole Blood 171 mg/dL (75-99)
[2018-10-09] MEDS: MAGNESIUM OXIDE 400 MG TAB PO SCH (20:42)
[2018-10-10] MEDS ORDERED: ONDANSETRON 4 MG/2 ML VIAL IVP PRN (00:01)
[2018-10-10] MEDS: LORazepam 2 MG/ML INJ IV PRN ×2 (00:10→18:58)
[2018-10-10 07:10] LABS: Glucose,Whole Blood 104 mg/dL (75-99)
[2018-10-10] MEDS: FAMOTIDINE 20 MG TAB PO SCH ×2 (09:35→21:37)
[2018-10-10] MEDS: FERROUS SULFATE 325 MG TAB PO SCH (09:35)
[2018-10-10] MEDS: cloNIDine HCL 0.1 MG TAB PO SCH ×2 (09:35→21:37)
[2018-10-10] MEDS: amLODIPine 5 MG TAB PO SCH ×2 (09:35→21:37)
[2018-10-10] MEDS: THIAMINE 100 MG TAB PO SCH ×2 (09:36→18:17)
[2018-10-10 11:10] LABS: Glucose,Whole Blood 92 mg/dL (75-99)
--- NOTE | 2018-10-10 11:10 | P.PN ---
Subjective Progress Note Date: 10/10/18 Anders Aguilar is a 63-year-old male who presented to [facility] emergency room due to alcohol intoxication and fall with severe back pain he was evaluated in the emergency room computed tomography scan of the brain, cervical, thoracic, lumbar spine was done and did not reveal any new fr acture, that was stable old compression fracture in the thoracic spine, there is retropulsion at L3. Patient was seen and examined on the medical floor on 10/09/2018 he was alert and oriented 3 in no apparent distress he is still complaining of severe pain in the lower back radiating to bilateral lower extremities he was unable to stand or walk due to severe pain. Otherwise he denies any complaints there is no fever or chills no headache or dizziness no chest pain no shortness of breath no cough no nausea or vomiting no abdominal pain no diarrhea and no urinary symptoms. He is starting to have some tremors he is maintained on the CIWA protocol. Patient had multiple previous admissions to the hospital he has known history of coronary artery disease, atrial fibrillation, diabetes mellitus, history of GI bleed, history of CVA, history of pulmonary embolus, and history of benign prostatic hypertrophy. He had difficulty with alcohol intoxication and had multiple admissions for that in the past. On 10/10/2018 patient is alert and oriented 3. Patient is still having increased pain to hips. Patient denies any chest pain or shortness of breath. Patient denies vomiting or diarrhea. Patient denies any urinary burning or frequency Objective - Vital Signs Vital signs: Vital Signs Temp 98.6 F 10/10/18 05:00 Pulse 86 10/10/18 05:00 Resp 16 10/10/18 05:00 BP 133/85 10/10/18 05:00 Pulse Ox 93 L 10/10/18 05:00 Intake & Output 10/09/18 10/10/18 10/10/18 18:59 06:59 18:59 Intake Total 500 Output Total 1250 Balance -1250 500 Intake: Oral 500 Output: Urine 1250 Other: Voiding Method Urinal Toilet Diaper Urinal # Voids 2 - Exam In general patient is alert and oriented 3 in no apparent distress HEENT head normocephalic and atraumatic Neck is supple no JVD no goiter no lymphadenopathy Chest exam is clear to auscultation no crackles no wheezing Cardiac exam reveals regular heart sounds S1 and S2 no gallops no murmurs Abdomen is soft nontender no organomegaly was normal bowel sounds Extremity exam reveals no edema no cyanosis or clubbing Neurological examination reveals no gross focal neurological deficit - Labs CBC & Chem 7: 10/09/18 06:42 10/10/18 06:57 Labs: Abnormal Lab Results - Last 24 Hours (Table) 10/09/18 10/09/18 10/09/18 Range/Units 11:40 17:07 20:02 POC Glucose (mg/dL) 119 H 121 H 171 H (75-99) mg/dL 10/10/18 Range/Units 07:08 POC Glucose (mg/dL) 104 H (75-99) mg/dL Assessment and Plan Assessment: #1 alcohol intoxication was early alcohol withdrawal #2 fall with severe back pain #3 physical debility with inability to stand or walk #4 underlying history of COPD stable at this time #5 underlying history of liver cirrhosis with portal hypertension and esophageal #6 previous history of proximal atrial fibrillation on coagulation due to history of bleeding from esophageal varices #7 previous history of Clostridium difficile colitis #8 hip pain. X-ray completed showing no acute osseous abnormalities bilateral hips #9 history of EtOH. #10. History of pneumonia #13 elevated liver enzymes DVT prophylaxis SCDs due to thrombocytopenia GI prophylaxis Pepcid Physical therapy consulted. Social consulted for discharge planning I performed an examination of the patient and discussed their management with the Nurse Practitioner. I have reviewed the Nurse Practitioner's notes and agree with the documented findings and plan of care
[2018-10-10] MEDS: IBUPROFEN 400 MG TAB PO PRN (11:28)
[2018-10-10 17:34] LABS: Glucose,Whole Blood 112 mg/dL (75-99)
[2018-10-10 19:31] LABS: Glucose,Whole Blood 143 mg/dL (75-99)
[2018-10-10] MEDS: MAGNESIUM OXIDE 400 MG TAB PO SCH (21:37)
[2018-10-11] MEDS: IBUPROFEN 400 MG TAB PO PRN ×4 (04:10→21:43)
[2018-10-11 07:01] LABS: Glucose,Whole Blood 89 mg/dL (75-99)
[2018-10-11 08:27] LABS: Anisocytosis Slight; HCT 38.6 % (39.0-53.0); HGB 11.8 gm/dL (13.0-17.5); MCH 30.2 pg (25.0-35.0); MCHC 30.6 g/dL (31.0-37.0); MCV 98.8 fL (80.0-100.0); Macrocytosis Slight; Mean Platelet Volume 11.3; RBC 3.91 m/uL (4.30-5.90); RDW 16.9 % (11.5-15.5); WBC 5.5 k/uL (3.8-10.6)
[2018-10-11 08:37] LABS: Platelet Count 69 k/uL (150-450)
[2018-10-11] MEDS: FAMOTIDINE 20 MG TAB PO SCH ×2 (08:56→20:27)
[2018-10-11] MEDS: cloNIDine HCL 0.1 MG TAB PO SCH ×2 (08:56→20:27)
[2018-10-11] MEDS: FERROUS SULFATE 325 MG TAB PO SCH (08:56)
[2018-10-11] MEDS: amLODIPine 5 MG TAB PO SCH ×2 (08:56→20:27)
[2018-10-11] MEDS: THIAMINE 100 MG TAB PO SCH ×2 (08:57→16:30)
[2018-10-11 09:13] LABS: Band Neutrophils % 1 %; Eosinophils # (M) 0.06 k/uL (0-0.7); Lymphocytes # (M) 0.88 k/uL (1.0-4.8); Monocytes # (M) 0.28 k/uL (0-1.0); Neutrophils % (M) 78 %; Nucleated Red Blood Cells 0 /100 WBC (0-0); Total Cells Counted 200
[2018-10-11 10:09] LABS: ALT 71 U/L (21-72); AST 279 U/L (17-59); Albumin 3.7 g/dL (3.5-5.0); Alkaline Phosphatase 350 U/L (38-126); Anion Gap 10 mmol/L; Blood Urea Nitrogen 18 mg/dL (9-20); Calcium 8.9 mg/dL (8.4-10.2); Carbon Dioxide 27 mmol/L (22-30); Chloride 102 mmol/L (98-107); Glucose 122 mg/dL (74-99); Magnesium 1.6 mg/dL (1.6-2.3); Potassium 3.9 mmol/L (3.5-5.1); Sodium 139 mmol/L (137-145); Total Bilirubin 3.7 mg/dL (0.2-1.3); Total Protein 7.4 g/dL (6.3-8.2)
--- NOTE | 2018-10-11 10:50 | P.PN ---
Subjective Progress Note Date: 10/11/18 Anders Aguilar is a 63-year-old male who presented to [facility] emergency room due to alcohol intoxication and fall with severe back pain he was evaluated in the emergency room computed tomography scan of the brain, cervical, thoracic, lumbar spine was done and did not reveal any new fr acture, that was stable old compression fracture in the thoracic spine, there is retropulsion at L3. Patient was seen and examined on the medical floor on 10/09/2018 he was alert and oriented 3 in no apparent distress he is still complaining of severe pain in the lower back radiating to bilateral lower extremities he was unable to stand or walk due to severe pain. Otherwise he denies any complaints there is no fever or chills no headache or dizziness no chest pain no shortness of breath no cough no nausea or vomiting no abdominal pain no diarrhea and no urinary symptoms. He is starting to have some tremors he is maintained on the CIWA protocol. Patient had multiple previous admissions to the hospital he has known history of coronary artery disease, atrial fibrillation, diabetes mellitus, history of GI bleed, history of CVA, history of pulmonary embolus, and history of benign prostatic hypertrophy. He had difficulty with alcohol intoxication and had multiple admissions for that in the past. On 10/10/2018 patient is alert and oriented 3. Patient is still having increased pain to hips. Patient denies any chest pain or shortness of breath. Patient denies vomiting or diarrhea. Patient denies any urinary burning or frequency On 10/11/2018 patient is alert and oriented 3. Patient evaluated by orthopedic services. At this time patient complaint of generalized weakness and pain. Physical therapy has been consulted. Social consulted for possible ECF. At this time patient denies chest pain or shortness of breath. Patient denies nausea vomiting or diarrhea. Patient denies burning or frequency. Objective - Vital Signs Vital signs: Vital Signs Temp 98.2 F 10/11/18 05:00 Pulse 93 10/11/18 08:00 Resp 18 10/11/18 08:00 BP 121/83 10/11/18 05:00 Pulse Ox 95 10/11/18 05:00 Intake & Output 10/10/18 10/11/18 10/11/18 18:59 06:59 18:59 Intake Total 500 1860 Balance 500 1860 Intake: Oral 500 1860 Other: Voiding Method Toilet Toilet Toilet Urinal Urinal Urinal # Voids 2 - Exam In general patient is alert and oriented 3 in no apparent distress HEENT head normocephalic and atraumatic Neck is supple no JVD no goiter no lymphadenopathy Chest exam is clear to auscultation no crackles no wheezing Cardiac exam reveals regular heart sounds S1 and S2 no gallops no murmurs Abdomen is soft nontender no organomegaly was normal bowel sounds Extremity exam reveals no edema no cyanosis or clubbing Neurological examination reveals no gross focal neurological deficit - Labs CBC & Chem 7: 10/11/18 07:06 10/11/18 08:56 Labs: Abnormal Lab Results - Last 24 Hours (Table) 10/10/18 10/10/18 10/10/18 Range/Units 06:57 17:32 19:30 RBC (4.30-5.90) m/uL Hgb (13.0-17.5) gm/dL Hct (39.0-53.0) % MCHC (31.0-37.0) g/dL RDW (11.5-15.5) % Plt Count (150-450) k/uL Lymphocytes # (Manual) (1.0-4.8) k/uL Glucose (74-99) mg/dL POC Glucose (mg/dL) 112 H 143 H (75-99) mg/dL Magnesium 1.4 L (1.6-2.3) mg/dL Total Bilirubin (0.2-1.3) mg/dL AST (17-59) U/L Alkaline Phosphatase (38-126) U/L 10/11/18 10/11/18 Range/Units 07:06 08:56 RBC 3.91 L (4.30-5.90) m/uL Hgb 11.8 L (13.0-17.5) gm/dL Hct 38.6 L (39.0-53.0) % MCHC 30.6 L (31.0-37.0) g/dL RDW 16.9 H (11.5-15.5) % Plt Count 69 L (150-450) k/uL Lymphocytes # (Manual) 0.88 L (1.0-4.8) k/uL Glucose 122 H (74-99) mg/dL POC Glucose (mg/dL) (75-99) mg/dL Magnesium (1.6-2.3) mg/dL Total Bilirubin 3.7 H (0.2-1.3) mg/dL AST 279 H (17-59) U/L Alkaline Phosphatase 350 H (38-126) U/L Assessment and Plan Assessment: #1 alcohol intoxication was early alcohol withdrawal #2 fall with severe back pain. Patient evaluated by orthopedic service is recommending TLSO brace #3 physical debility with inability to stand or walk #4 underlying history of COPD stable at this time #5 underlying history of liver cirrhosis with portal hypertension and esophageal #6 previous history of proximal atrial fibrillation on coagulation due to history of bleeding from esophageal varices #7 previous history of Clostridium difficile colitis #8 hip pain. X-ray completed showing no acute osseous abnormalities bilateral hips #9 history of EtOH. #10. History of pneumonia #13 elevated liver enzymes DVT prophylaxis SCDs due to thrombocytopenia GI prophylaxis Pepcid Physical therapy consulted. Social consulted for discharge planning I performed an examination of the patient and discussed their management with the Nurse Practitioner. I have reviewed the Nurse Practitioner's notes and agree with the documented findings and plan of care
[2018-10-11 11:17] LABS: Glucose,Whole Blood 121 mg/dL (75-99)
--- NOTE | 2018-10-11 12:25 | P.CNOR ---
History of Present Illness - [facility] Consult date: 10/11/18 Requesting physician: Deisy Alvarado Consult reason: fracture (L3 acute subacute compression fracture deformity s tatus post fall), low back pain History of present illness: Patient is a pleasant 63-year-old male who is seen exam of the bedside for further evaluation of acute low back pain status post fall. Patient presented to the emergency department on 10/08/2018 after sustaining a fall at home. His blood alcohol level at that time was 367. Patient states he was trying to get something out of his refrigerator when he slipped on some water landing on his back. He is not currently complaining of any cervical pain or head pain. His pain is most significant along the lower lumbar spine. He states his last known fall was approximately 7 or 8 years ago. He denies any other recent injuries. He does have a significant medical history including alcohol abuse and dependence. He states he usually drinks approximately once or twice per day. He states alcohol helps him to forget about his worries in his life. He states he has a history of drinking throughout high school. He states he stopped drinking for approximately 20 years after getting . He in 2008 and resumed drinking since that time. He does admit to having a problem with drinking. He states he is contacted [facility] to discuss possible admission into their rehabilitation program but has not heard anything back from them. He does admit to upper extremity tremor when he avoids drinking. He currently has a right upper extremity tremor. He currently denies any specific lower extremity weakness or radiculopathy bilaterally. He states his lower extremities do feel generally weaker and unsteady. He is not complaining of significant lower extremity leg pain. During his hospital admission CT of the chest abdomen and pelvis, CT of the thoracic and lumbar spine, CT of the head and cervical spine, and bilateral hip x-rays have been performed. Patient is a medical history which includes atrial fibrillation, COPD, CVA/TIA, diabetes mellitus, hyperlipidemia, hypertension, cancer, and pulmonary embolism. Past Medical History Past Medical History: Atrial Fibrillation, Cancer, Chest Pain / Angina, COPD, CVA/TIA, Diabetes Mellitus, GERD/Reflux, GI Bleed, Hyperlipidemia, Hypertension, Pneumonia, Prostate Disorder, Pulmonary Embolus (PE) Additional Past Medical History / Comment(s): tachycardia/palpitations likely d/t alcohol withdrawal. hx of Alcoholism, chronic alcoholic cirrhosis with portal hypertension and previous history of upper and lower GI bleeding, esophageal varices, previous history of childhood seizure which he outgrew not taking any antiepileptic medication-possibly had recent seizure-2017 thought d/t alcohol withdrawal, pulmonary embolism x 2 R lung, TIA, diverticulosis, chronic lower bilateral extremity ankle edema if he walks alot, previous history of septicemia, cervical disc disease with chronic back pain with r sided sciatica, degenerative arthritis involving the lower back, tinnitus, vitamin D deficiency, iron anemia, chronic thrombocytopenia, denies MRSA, C-DIFF -2018, scoliosis, scoliosis. pt had radiation 04/28 for prostate cancer History of Any Multi-Drug Resistant Organisms: C-DIFF, MRSA Year Discovered:: n/a MDRO Source:: STOOL Past Surgical History: Appendectomy, Cholecystectomy Additional Past Surgical History / Comment(s): EGDs/esophageal varicies bandings, colonoscopies. Past Anesthesia/Blood Transfusion Reactions: No Reported Reaction Additional Past Anesthesia/Blood Transfusion Reaction / Comm: after appendix removed sob Past Psychological History: Anxiety, Depression Additional Psychological History / Comment(s): Pt lives in an apartment alone. Apartment complex has front door ramp and has an elevator. no pets. Sometimes his sister stays with him and cleans his home. He uses a cane to ambulate at times. He drives but currently has no car. He gets to [facility] [employer] bus. He has a nebulizer and a glucometer.pt stated he was getting [facility] home care nurse but has'nt seen them in few days,not sure if they're still coming. Used to work in [employer]. Relates that he's not been a smoker. Denies recreational drug use. His left him many years ago he has adult children that he does not see very often. No experience. No travel history. No animal exposures Smoking Status: Never smoker Past Alcohol Use History: Abuse, Daily Additional Past Alcohol Use History / Comment(s): pt reports normally drinks 2 fifths per week. 10/08 admission drank 1 fifth prior to admission Past Drug Use History: None Reported - Past Family History Mother Family Medical History: COPD, CVA/TIA, Dementia Additional Family Medical History / Comment(s): from a stroke Father Family Medical History: Pneumonia Additional Family Medical History / Comment(s): Father of pneumonia when he was close to 80 yrs old. Medications and Allergies Home Medications Medication Instructions Recorded Confirmed Type cloNIDine HCL [Catapres] 0.1 mg PO BID #60 tab 03/26/18 10/08/18 Rx Ferrous Sulfate [Iron (65 MG 325 mg PO DAILY 04/24/18 10/08/18 History Elemental)] Magnesium Oxide [Mag-Ox] 400 mg PO HS 04/24/18 10/08/18 History Thiamine Mononitrate (Vit B1) 100 mg PO DAILY 06/21/18 10/08/18 History [Vitamin B-1] Famotidine [Pepcid] 20 mg PO BID 08/23/18 10/08/18 History amLODIPine [Norvasc] 5 mg PO BID 08/25/18 10/08/18 History LORazepam [Ativan] 0.5 mg PO BID PRN 3 Days #6 tab 09/07/18 10/08/18 Rx chlordiazePOXIDE HCl [Librium] 10 mg PO TID 3 Days #9 capsule 09/15/18 10/08/18 Rx Allergies Allergy/AdvReac Type Severity Reaction Status Date / Time adhesive tape Allergy Rash/Hives Verified 10/08/18 18:10 latex Allergy Unknown Verified 10/08/18 18:10 egg AdvReac Nausea & Verified 10/08/18 18:10 Vomiting lisinopril AdvReac EYES Verified 10/08/18 18:10 BURN&ITCH/WEAKNESS tomato AdvReac Nausea & Verified 10/08/18 18:10 Vomiting & Diarrhea Physical Examination Physical exam: Patient is awake, alert, and oriented 3 Vital signs stable Good chest excursion with deep inspiration and expiration Abdomen soft nontender Examination of lumbar spine reveals skin is intact with no abrasions, lacerations, or bruises; no erythema, purulence or signs of infection Significant pain with palpation along the midline of the lower lumbar spine Dorsiflexion, plantarflexion, and extensor hallucis longus positive sustained bilaterally Lower extremity strength positive sustained throughout range of motion bilaterally Patellar reflex 1+ bilaterally No lower extremity hyperreflexia bilaterally Straight leg test negative bilateral lower extremities No signs or symptoms of DVT; no calf pain No pain with internal and external rotation of the hips bilaterally Neurovascularly intact Evidence of a right upper extremity resting tremor Results Pertinent studies: CT head and cervical spine taken on 10/08/2018: C3-4 severe degenerative disc disease and anterior posterior osteophyte spurring; C5-6 and C6-7 degenerative disc disease with anterior and posterior osteophyte spurring; no evidence of acute compression fracture deformity; no evidence of spondylolisthesis; cervical spondylosis; no evidence of acute intracranial hemorrhage, mass effect, or midline shift CT of the thoracic and lumbar spine taken on 10/08/2018: Evidence of chronic T4 compression fracture deformity which is seen on previous imaging taken on 09/04/2018 and 09/27/2018; L3 superior endplate compression fracture deformity with approximately 6 mm to 7 mm retropulsion that is an acute to subacute fracture as it was evident on previous x-ray imaging taken on 09/27/2018 but is not on previous CT imaging taken on 08/23/2018; multilevel lumbar facet spondylosis of L4-5 degenerative disc disease and vacuum disc phenomenon; evidence of lateral osteophytic spurring most significant in the lower thoracic spine X-rays of bilateral hips taken on 10/09/2018: No evidence of fracture or dislocation bilateral hips; no evidence of acute osseous abnormality - Labs Labs: Abnormal Lab Results - Last 24 Hours (Table) 10/10/18 10/10/18 10/10/18 Range/Units 06:57 17:32 19:30 RBC (4.30-5.90) m/uL Hgb (13.0-17.5) gm/dL Hct (39.0-53.0) % MCHC (31.0-37.0) g/dL RDW (11.5-15.5) % POC Glucose (mg/dL) 112 H 143 H (75-99) mg/dL Magnesium 1.4 L (1.6-2.3) mg/dL 10/11/18 Range/Units 07:06 RBC 3.91 L (4.30-5.90) m/uL Hgb 11.8 L (13.0-17.5) gm/dL Hct 38.6 L (39.0-53.0) % MCHC 30.6 L (31.0-37.0) g/dL RDW 16.9 H (11.5-15.5) % POC Glucose (mg/dL) (75-99) mg/dL Magnesium (1.6-2.3) mg/dL H & H 0510/09/18 10/11/18 Range/Units 18:16 06:42 07:06 Hgb 13.4 12.3 L 11.8 L (13.0-17.5) gm/dL Hct 41.6 37.4 L 38.6 L (39.0-53.0) % Coagulation 10/08/18 Range/Units 18:16 INR 1.3 H (<1.2) Result Diagrams: 10/11/18 07:06 10/11/18 08:56 Assessment and Plan Assessment: Assessment: Acute subacute L3 compression fracture deformity Intractable low back pain Alcohol abuse and dependence Current right upper extremity resting tremor may be due to delirium tremens from alcohol withdrawal Status post fall L4-5 degenerative disc disease with vacuum disc phenomenon Multilevel anterior osteophytic spurring lumbar spine Multilevel lumbar spondylosis C3-4, C5-6, and C6-7 degenerative disc disease and anterior osteophyte spurring Multilevel cervical spondylosis (1) Status post fall Current Visit: Yes Status: Acute Code(s): Z91.81 - HISTORY OF FALLING SNOMED Code(s): 726720753 (2) Alcohol dependence Current Visit: Yes Status: Acute Code(s): F10.20 - ALCOHOL DEPENDENCE, UNCOMPLICATED SNOMED Code(s): 70149086 (3) Alcohol dependence with withdrawal Current Visit: Yes Status: Acute Code(s): F10.239 - ALCOHOL DEPENDENCE WITH WITHDRAWAL, UNSPECIFIED SNOMED Code(s): 53565904 (4) Compression fracture of L3 vertebra Current Visit: Yes Status: Acute Code(s): S32.030A - WEDGE COMPRESSION FRACTURE OF THIRD LUMBAR VERTEBRA, INIT SNOMED Code(s): 298024896 (5) ETOH abuse Current Visit: No Status: Acute Code(s): F10.10 - ALCOHOL ABUSE, UNCOMPLICA ELEONORA SNOMED Code(s): 04431565 (6) Intractable low back pain Current Visit: Yes Status: Acute Code(s): M54.5 - LOW BACK PAIN SNOMED Code(s): 35816707622916277 (7) Lumbar degenerative disc disease Current Visit: Yes Status: Acute Code(s): M51.36 - OTHER INTERVERTEBRAL DISC DEGENERATION, LUMBAR REGION SNOMED Code(s): 31020904 (8) Lumbar facet arthropathy Current Visit: Yes Status: Acute Code(s): M47.816 - SPONDYLOSIS W/O MYELOPA THY OR RADICULOPATHY, LUMBAR REGION SNOMED Code(s): 382580152 (9) Degeneration of intervertebral disc of lumbar region with osteophyte of lumbar vertebra Current Visit: Yes Status: Acute Code(s): M51.36 - OTHER INTERVERTEBRAL DISC DEGENERATION, LUMBAR REGION; M25.78 - OSTEOPHYTE, VERTEBRAE SNOMED Code(s): 423779805 (10) Degenerative cervical disc Current Visit: Yes Status: Acute Code(s): M50.30 - OTHER CERVICAL DISC DEGENERATION, UNSP CERVICAL REGION SNOMED Code(s): 70786109 (11) Cervical spondylosis Current Visit: Yes Status: Acute Code(s): M47.812 - SPONDYLOSIS W/O MYELOPATHY OR RADICULOPATHY, CERVICAL REGION SNOMED Code(s): 998388357 Plan: Plan: 1. After reviewing of imaging, physical examination the patient, and further discussion with the patient, will currently planned to continue with conservative treatment at this time. He does have evidence of an acute to subacute L3 compression fracture deformity. L3 compression fracture deformity is present on recent x-ray imaging taken on 09/27/2018. This fracture was not evident on previous CT of the abdomen and pelvis performed on 08/23/2018. Patient does have pain at the site of this fracture. His pain is better controlled while at rest and is exacerbated with movements of the spine. His back pain is also exacerbated with coughing and sneezing. At this time we'll plan for bracing. A prescription has been written and provided to case management for an Exos LSO brace. Once this brace is delivered and fitted appropriately, patient should wear this brace while sitting upright at greater than 45, during increase activities, during ambulation. Brace is not have to or while lying in bed or while bathing. Following fitting of this brace, patient is clear for discharge from an orthopedic spine standpoint. Following discharge, patient may follow-up with Herbert Breaux PA-C or Dr. Latrell Levi at [facility]. We are not currently planning for further treatment or evaluation for chronic T4 compression fracture deformity. 2. Patient does admit to alcohol abuse and dependence with episodes of upper extremity tremors due to withdrawal when he stopped drinking. He states he previously contacted [facility] to discuss possible admission to the rehabilitation program. At this time consultation has been placed for social work to see the patient will be able to be transferred to [facility] for rehabilitation at the time of discharge. Patient feels this is a good plan of care. 3. Patient will continue seeing them other medical providers for his other medical diagnoses including right upper extremity tremor that may be due to delirium tremens. Time with Patient: Greater than 30 (Including obtaining history, physical examination, reviewing of imaging, and dictation.)
[2018-10-11 17:19] LABS: Glucose,Whole Blood 132 mg/dL (75-99)
[2018-10-11 20:23] LABS: Glucose,Whole Blood 129 mg/dL (75-99)
[2018-10-11] MEDS: LORazepam 2 MG/ML INJ IV PRN (20:27)
[2018-10-11] MEDS: MAGNESIUM OXIDE 400 MG TAB PO SCH (20:27)
[2018-10-12 06:43] LABS: Glucose,Whole Blood 95 mg/dL (75-99)
[2018-10-12 07:52] LABS: Anisocytosis Slight; Basophils % (A) 0 %; Eosinophils # (A) 0.1 k/uL (0-0.7); Eosinophils % (A) 3 %; HCT 38.3 % (39.0-53.0); HGB 12.1 gm/dL (13.0-17.5); Lymphocytes # (A) 0.5 k/uL (1.0-4.8); Lymphocytes % (A) 16 %; MCH 31.7 pg (25.0-35.0); MCHC 31.6 g/dL (31.0-37.0); MCV 100.1 fL (80.0-100.0); Macrocytosis Slight; Mean Platelet Volume 9.5; Monocytes # (A) 0.2 k/uL (0-1.0); Monocytes % (A) 6 %; Neutrophils # (A) 2.2 k/uL (1.3-7.7); Neutrophils % (A) 73 %; RBC 3.83 m/uL (4.30-5.90); RDW 17.7 % (11.5-15.5)
[2018-10-12 07:57] LABS: Platelet Count 65 k/uL (150-450)
[2018-10-12] MEDS: amLODIPine 5 MG TAB PO SCH (08:13)
[2018-10-12] MEDS: THIAMINE 100 MG TAB PO SCH (08:13)
[2018-10-12] MEDS: FERROUS SULFATE 325 MG TAB PO SCH (08:14)
[2018-10-12] MEDS: cloNIDine HCL 0.1 MG TAB PO SCH (08:14)
[2018-10-12] MEDS: FAMOTIDINE 20 MG TAB PO SCH (08:14)
[2018-10-12 08:15] LABS: ALT 64 U/L (21-72); AST 232 U/L (17-59); Albumin 3.4 g/dL (3.5-5.0); Alkaline Phosphatase 340 U/L (38-126); Anion Gap 8 mmol/L; Blood Urea Nitrogen 13 mg/dL (9-20); Calcium 8.6 mg/dL (8.4-10.2); Carbon Dioxide 24 mmol/L (22-30); Chloride 107 mmol/L (98-107); Glucose 94 mg/dL (74-99); Magnesium 1.6 mg/dL (1.6-2.3); Potassium 3.9 mmol/L (3.5-5.1); Sodium 139 mmol/L (137-145); Total Bilirubin 2.8 mg/dL (0.2-1.3); Total Protein 6.9 g/dL (6.3-8.2)
[2018-10-12 11:32] LABS: Glucose,Whole Blood 127 mg/dL (75-99)
[2018-10-12 12:08] VITALS: BP 107/70; PULSE 95; RESP 17; TEMP 98.8
--- NOTE | 2018-10-12 12:15 | P.PN ---
Progress Note - Text Progress Note Date: 10/12/18 Patient is a pleasant 63-year-old male who is seen exam of the bedside for follow-up evaluation of acute low back pain status post fall. Since being seen and examined yesterday, an LSO brace has been delivered and fitted properly. Patient has been wearing this brace while out of bed. He does continue to have ongoing low back pain. Patient presented to the emergency department on 10/08/2018 after sustaining a fall at home. His blood alcohol level at that time was 367. Patient states he was trying to get something out of his refrigerator when he slipped on some water landing on his back. He is not currently complaining of any cervical pain or head pain. His pain is most significant along the lower lumbar spine. He states his last known fall was approximately 7 or 8 years ago. He denies any other recent injuries. He does have a significant medical history including alcohol abuse and dependence. He states he usually drinks approximately once or twice per day. He states alcohol helps him to forget about his worries in his life. He states he has a history of drinking throughout high school. He states he stopped drinking for approximately 20 years after getting . He in 2008 and resumed drinking since that time. He does admit to having a problem with drinking. He states he is contacted [facility] to discuss possible admission into their rehabilitation program but has not heard anything back from them. Patient had been discussed in detail with social work who had been able to contact [facility] about possible transfer to the rehabilitation facility at discharge. Patient does have some difficulty with mobility and they are not able to except him with his current status. Patient is planning to be discharged home with referral to Alcoholics Anonymous. He does admit to upper extremity tremor when he avoids drinking. He is not currently experiencing upper extremity tremor which she was experiencing yesterday. He currently denies any specific lower extremity weakness or radiculopathy bilaterally. He states his lower extremities do feel generally weaker and unsteady. He is not complaining of significant lower extremity leg pain. During his hospital admission CT of the chest abdomen and pelvis, CT of the thoracic and lumbar spine, CT of the head and cervical spine, and bilateral hip x-rays have been performed. Patient is a medical history which includes atrial fibrillation, COPD, CVA/TIA, diabetes mellitus, hyperlipidemia, hypertension, cancer, and pulmonary embolism. Physical exam: Patient is awake, alert, and oriented 3 Vital signs stable Good chest excursion with deep inspiration and expiration Abdomen soft nontender Examination of lumbar spine reveals skin is intact with no abrasions, lacerations, or bruises; no erythema, purulence or signs of infection Significant pain with palpation along the midline of the lower lumbar spine Dorsiflexion, plantarflexion, and extensor hallucis longus positive sustained bilaterally Lower extremity strength positive sustained throughout range of motion bilaterally Patellar reflex 1+ bilaterally No lower extremity hyperreflexia bilaterally Straight leg test negative bilateral lower extremities No signs or symptoms of DVT; no calf pain No pain with internal and external rotation of the hips bilaterally Neurovascularly intact Evidence of a right upper extremity resting tremor Pertinent studies: CT head and cervical spine taken on 10/08/2018: C3-4 severe degenerative disc disease and anterior posterior osteophyte spurring; C5-6 and C6-7 degenerative disc disease with anterior and posterior osteophyte spurring; no evidence of acute compression fracture deformity; no evidence of spondylolisthesis; cervical spondylosis; no evidence of acute intracranial hemorrhage, mass effect, or midline shift CT of the thoracic and lumbar spine taken on 10/08/2018: Evidence of chronic T4 compression fracture deformity which is seen on previous imaging taken on 09/04/2018 and 09/27/2018; L3 superior endplate compression fracture deformity with approximately 6 mm to 7 mm retropulsion that is an acute to subacute fracture as it was evident on previous x-ray imaging taken on 09/27/2018 but is not on previous CT imaging taken on 08/23/2018; multilevel lumbar facet spondylosis of L4-5 degenerative disc disease and vacuum disc phenomenon; evidence of lateral osteophytic spurring most significant in the lower thoracic spine X-rays of bilateral hips taken on 10/09/2018: No evidence of fracture or dislocation bilateral hips; no evidence of acute osseous abnormality Assessment: Acute subacute L3 compression fracture deformity Intractable low back pain Alcohol abuse and dependence Current right upper extremity resting tremor may be due to delirium tremens from alcohol withdrawal Status post fall L4-5 degenerative disc disease with vacuum disc phenomenon Multilevel anterior osteophytic spurring lumbar spine Multilevel lumbar spondylosis C3-4, C5-6, and C6-7 degenerative disc disease and anterior osteophyte spurring Multilevel cervical spondylosis Plan: 1. After reviewing of imaging, physical examination the patient, and further discussion with the patient, will currently planned to continue with conservative treatment as discussed yesterday. He does have evidence of an acute to subacute L3 compression fracture deformity. L3 compression fracture deformity is present on recent x-ray imaging taken on 09/27/2018. This fracture was not evident on previous CT of the abdomen and pelvis performed on 08/23/2018. Patient does have pain at the site of this fracture. His pain is better controlled while at rest and is exacerbated with movements of the spine. His back pain is also exacerbated with coughing and sneezing. Yesterday prescription had been written and provided to case management for an Exos LSO brace. This brace has been delivered and fitted appropriately. Patient should wear this brace while sitting upright at greater than 45, during increase activities, during ambulation. Brace is not have to or while lying in bed or while bathing. Patient is now clear for discharge from an orthopedic spine standpoint. Following discharge, patient may follow-up with Herbert Breaux PA-C or Dr. Latrell Levi at [facility]. We are not currently planning for further treatment or evaluation for chronic T4 compression fracture deformity. 2. Patient does admit to alcohol abuse and dependence with episodes of upper extremity tremors due to withdrawal when he stopped drinking. He states he previously contacted [facility] to discuss possible admission to the rehabilitation program. At this time consultation has been placed for social work to see the patient will be able to be transferred to [facility] for rehabilitation at the time of discharge. Social work currently states [facility] is unable to take the patient and will plan for discharge home with referral to Alcoholics Anonymous. Patient feels this is a good plan of care. 3. Patient will continue seeing them other medical providers for his other medical diagnoses including right upper extremity tremor that may be due to delirium tremens.
--- NOTE | 2018-10-12 13:37 | P.DS ---
Providers Date of admission: 10/09/18 11:16 Expected date of discharge: 10/12/18 Attending physician: Charlette Finney Consults: 10/10/18 12:08 Consult Physician Routine Consulting Provider: Mimi Levi Consult Reason/Comments: L3 retropulsion Do you want consulting provider notified?: Yes Primary care physician: Yoon Phillips Hospital Course: Discharge diagnosis #1 alcohol intoxication was early alcohol withdrawal. Continue Librium and home dose of Ativan #2 fall with severe back pain. Patient evaluated by orthopedic service is recommending TLSO brace. TLSO brace at bedside. Patient has been cleared for discharge from orthopedic standpoint patient to follow-up outpatient with orthopedic services #3 physical debility with inability to stand or walk. Patient was evaluated by physical therapy recommending a walker and home not requiring ECF. #4 underlying history of COPD stable at this time #5 underlying history of liver cirrhosis with portal hypertension and esophageal #6 previous history of proximal atrial fibrillation on coagulation due to history of bleeding from esophageal varices #7 previous history of Clostridium difficile colitis #8 hip pain. X-ray completed showing no acute osseous abnormalities bilateral hips #9 history of EtOH. #10. History of pneumonia #13 elevated liver enzymes. Likely secondary to patient's liver cirrhosis. Repeat CMP will be ordered for 3 days outpatient patient follow up with PCP Hospital course Anders Aguilar is a 63-year-old male who presented to [facility] emergency room due to alcohol intoxication and fall with severe back pain he was evaluated in the emergency room computed tomography scan of the brain, cervical, thoracic, lumbar spine was done and did not reveal any new fracture, that was stable old compression fracture in the thoracic spine, there is retropulsion at L3. Patient was seen and examined on the medical floor on 10/09/2018 he was alert and oriented 3 in no apparent distress he is still complaining of severe pain in the lower back radiating to bilateral lower extremities he was unable to stand or walk due to severe pain. Otherwise he denies any complaints there is no fever or chills no headache or dizziness no chest pain no shortness of breath no cough no nausea or vomiting no abdominal pain no diarrhea and no urinary symptoms. He is starting to have some tremors he is maintained on the CIWA protocol. Patient had multiple previous admissions to the hospital he has known history of coronary artery disease, atrial fibrillation, diabetes mellitus, history of GI bleed, history of CVA, history of pulmonary embolus, and history of benign prostatic hypertrophy. He had difficulty with alcohol intoxication and had multiple admissions for that in the past. On 10/10/2018 patient is alert and oriented 3. Patient is still having increased pain to hips. Patient denies any chest pain or shortness of breath. Patient denies vomiting or diarrhea. Patient denies any urinary burning or frequency On 10/11/2018 patient is alert and oriented 3. Patient evaluated by orthopedic services. At this time patient complaint of generalized weakness and pain. Physical therapy has been consulted. Social consulted for possible ECF. At this time patient denies chest pain or shortness of breath. Patient denies nausea vomiting or diarrhea. Patient denies burning or frequency. On 10/12/2018 patient alert and oriented 3. TLSO brace at bedside. Patient has been cleared for discharge from orthopedic services. Patient was evaluated by physical therapy recommending home with walker. Patient to follow-up outpatient with PCP and orthopedic services. At this time patient denies chest pain or shortness breath. Patient denies nausea vomiting or diarrhea. Patient denies any urinary burning or frequency. CMP will be ordered for 2 days I performed an examination of the patient and discussed their management with the Nurse Practitioner. I have reviewed the Nurse Practitioner's notes and agree with the documented findings and plan of care Patient Condition at Discharge: Stable Plan - Discharge Summary Discharge Rx Participant: No New Discharge Prescriptions: Continue cloNIDine HCL [Catapres] 0.1 mg PO BID #60 tab Magnesium Oxide [Mag-Ox] 400 mg PO HS Ferrous Sulfate [Iron (65 MG Elemental)] 325 mg PO DAILY Thiamine Mononitrate (Vit B1) [Vitamin B-1] 100 mg PO DAILY Famotidine [Pepcid] 20 mg PO BID amLODIPine [Norvasc] 5 mg PO BID LORazepam [Ativan] 0.5 mg PO BID PRN 3 Days #6 tab PRN Reason: tremors chlordiazePOXIDE HCl [Librium] 10 mg PO TID 3 Days #9 capsule Discharge Medication List cloNIDine HCL [Catapres] 0.1 mg PO BID #60 tab 03/26/18 [Rx] Ferrous Sulfate [Iron (65 MG Elemental)] 325 mg PO DAILY 04/24/18 [History] Magnesium Oxide [Mag-Ox] 400 mg PO HS 04/24/18 [History] Thiamine Mononitrate (Vit B1) [Vitamin B-1] 100 mg PO DAILY 06/21/18 [History] Famotidine [Pepcid] 20 mg PO BID 08/23/18 [History] amLODIPine [Norvasc] 5 mg PO BID 08/25/18 [History] LORazepam [Ativan] 0.5 mg PO BID PRN 3 Days #6 tab 09/07/18 [Rx] chlordiazePOXIDE HCl [Librium] 10 mg PO TID 3 Days #9 capsule 09/15/18 [Rx] Follow up Appointment(s)/Referral(s): Herbert Breaux, SAQIB [PHYSICIAN LAST MODEL DEPARTMENT SUPERVISOR] - 2 Weeks (Patient may follow-up with Herbert Breaux PA-C or Dr. Latrell Levi at [facility] in 2-3 weeks following discharge. ) Yoon Phillips DO [Primary Care Provider] - 1-2 days Patient Instructions/Handouts: Fall Prevention for Older Adults (ED) Activity/Diet/Wound Care/Special Instructions: 1. Patient may wear LSO brace for comfort and support while sitting upright at greater than 45, while working with therapy, and while ambulating; patient does not have to wear the brace while lying in bed or bathing 2. Patient should avoid excessive bending, twisting, and lifting; no lifting greater than 10 pounds Activity as tolerated Diet heart healthy
[2018-10-12 17:11] LABS: Glucose,Whole Blood 114 mg/dL (75-99)
[2018-10-12] MEDS: IBUPROFEN 400 MG TAB PO PRN (17:22)
== END 2018-10-12 18:30 | disposition home or self-care (01) | DRG 552 ==
LOC: EC 18:07 → 3NMEDONC 20:51 → OBSVTOIN 10-09 11:16
PROVIDERS: ADMIT Internal Medicine; ATTEND Internal Medicine
DX: S32.039A Unspecified fracture of third lumbar vertebra, initial encounter for closed fracture (principal); K76.6 Portal hypertension; M47.16 Other spondylosis with myelopathy, lumbar region; M47.12 Other spondylosis with myelopathy, cervical region; M50.023 Cervical disc disorder at C6-C7 level with myelopathy; M51.06 Intervertebral disc disorders with myelopathy, lumbar region; F10.231 Alcohol dependence with withdrawal delirium; F10.221 Alcohol dependence with intoxication delirium; W01.0XXA Fall on same level from slipping, tripping and stumbling without subsequent striking against object, initial encounter; Y90.8 Blood alcohol level of 240 mg/100 ml or more; I25.10 Atherosclerotic heart disease of native coronary artery without angina pectoris; E11.9 Type 2 diabetes mellitus without complications; E78.5 Hyperlipidemia, unspecified; F32.9 Major depressive disorder, single episode, unspecified; F41.9 Anxiety disorder, unspecified; G89.29 Other chronic pain; I10 Essential (primary) hypertension; J44.9 Chronic obstructive pulmonary disease, unspecified; K21.9 Gastro-esophageal reflux disease without esophagitis; N40.0 Benign prostatic hyperplasia without lower urinary tract symptoms; K70.30 Alcoholic cirrhosis of liver without ascites; M25.78 Osteophyte, vertebrae; M46.96 Unspecified inflammatory spondylopathy, lumbar region; M47.22 Other spondylosis with radiculopathy, cervical region; M47.26 Other spondylosis with radiculopathy, lumbar region; M50.123 Cervical disc disorder at C6-C7 level with radiculopathy; M51.16 Intervertebral disc disorders with radiculopathy, lumbar region; I48.0 Paroxysmal atrial fibrillation; R53.81 Other malaise; Z87.01 Personal history of pneumonia (recurrent); Z86.73 Personal history of transient ischemic attack (TIA), and cerebral infarction without residual deficits; Y92.000 Kitchen of unspecified non-institutional (private) residence as the place of occurrence of the external cause; Z86.711 Personal history of pulmonary embolism; Z86.19 Personal history of other infectious and parasitic diseases; Z85.46 Personal history of malignant neoplasm of prostate; Z79.899 Other long term (current) drug therapy; Z82.3 Family history of stroke; Z82.5 Family history of asthma and other chronic lower respiratory diseases
CPT/HCPCS: 36415; 70450; 71045; 71250; 72125; 72128; 72131; 73521; 74176; 80053; 80306; 80320; 81003; 83735; 84132; 84484; 85025; 85610; 85730; 86850; 86900; 86901; 93005; 96360; 96361; 96372; 99285

== ENCOUNTER 2018-10-19 04:50 | Inpatient (IN) | payer OTHER ==
[2018-10-19 05:26] LABS: Anisocytosis Slight; Basophils # (A) 0.1 k/uL (0-0.2); Basophils % (A) 2 %; Eosinophils % (A) 1 %; HCT 34.8 % (39.0-53.0); HGB 11.1 gm/dL (13.0-17.5); Lymphocytes # (A) 1.1 k/uL (1.0-4.8); Lymphocytes % (A) 30 %; MCH 31.2 pg (25.0-35.0); MCV 97.4 fL (80.0-100.0); Macrocytosis Slight; Monocytes # (A) 0.4 k/uL (0-1.0); Monocytes % (A) 10 %; Neutrophils # (A) 2.2 k/uL (1.3-7.7); Neutrophils % (A) 56 %; RBC 3.57 m/uL (4.30-5.90); RDW 17.4 % (11.5-15.5); WBC 3.8 k/uL (3.8-10.6)
[2018-10-19 05:30] LABS: Platelet Count 153 k/uL (150-450)
[2018-10-19] MEDS ORDERED: SODIUM CHLORIDE 0.9% 1,000 ML IV ONE ×2 (05:31→05:49)
[2018-10-19] MEDS ORDERED: PANTOPRAZOLE 40 MG/10 ML VIAL IVP STA (05:32)
[2018-10-19 05:34] LABS: ALT 64 U/L (21-72); AST 199 U/L (17-59); African American GFR (CKD) >90 (>60 ml/min/1.73 sqM); Albumin 3.6 g/dL (3.5-5.0); Alkaline Phosphatase 361 U/L (38-126); Anion Gap 12 mmol/L; Blood Urea Nitrogen 13 mg/dL (9-20); Calcium 8.4 mg/dL (8.4-10.2); Carbon Dioxide 27 mmol/L (22-30); Chloride 104 mmol/L (98-107); Glucose 108 mg/dL (74-99); Potassium 4.5 mmol/L (3.5-5.1); Sodium 143 mmol/L (137-145); Total Bilirubin 1.4 mg/dL (0.2-1.3); Total Protein 7.1 g/dL (6.3-8.2)
--- NOTE | 2018-10-19 05:35 | ED ---
GI Bleed HPI - General Chief complaint: GI Bleed Stated complaint: Vomiting Time Seen by Provider: 10/19/18 05:00 Source: patient Mode of arrival: EMS Limitations: no limitations - History of Present Illness Initial comments: 's patient is a 63-year-old man who presents with complaint that he is having some coffee-ground emesis. Patient states that he had been drinking earlier and then he tried to go to sleep. He then developed nausea and vomiting. When he vomited he noticed that there was a fair amount of coffee-ground emesis with a streaks of reddish blood. Patient not having any abdominal pain. Patient denies any change in bowel movements. No chest pain, dyspnea, diaphoresis, lightheadedness or syncope. MD complaint: coffee ground emesis Onset/Timin -: hour(s) Quality: cramping Consistency: now resolved Improves with: none Worsens with: none Context: history of GI bleed, alcohol abuse Associated Symptoms: nausea, vomiting - Related Data Home Medications Medication Instructions Recorded Confirmed Ferrous Sulfate [Iron (65 MG 325 mg PO DAILY 04/24/18 10/19/18 Elemental)] Magnesium Oxide [Mag-Ox] 400 mg PO HS 04/24/18 10/19/18 Thiamine Mononitrate (Vit B1) 100 mg PO DAILY 06/21/18 10/19/18 [Vitamin B-1] Famotidine [Pepcid] 20 mg PO BID 08/23/18 10/19/18 amLODIPine [Norvasc] 5 mg PO BID 08/25/18 10/19/18 Previous Rx's Medication Instructions Recorded cloNIDine HCL [Catapres] 0.1 mg PO BID #60 tab 03/26/18 LORazepam [Ativan] 0.5 mg PO BID PRN 3 Days #6 tab 09/07/18 chlordiazePOXIDE HCl [Librium] 10 mg PO TID 3 Days #9 capsule 09/15/18 Allergies Allergy/AdvReac Type Severity Reaction Status Date / Time adhesive tape Allergy Rash/Hives Verified 10/08/18 18:10 latex Allergy Unknown Verified 10/08/18 18:10 egg AdvReac Nausea & Verified 10/08/18 18:10 Vomiting lisinopril AdvReac EYES Verified 10/08/18 18:10 BURN&ITCH/WEAKNESS tomato AdvReac Nausea & Verified 10/08/18 18:10 Vomiting & Diarrhea Review of Systems ROS Statement: Those systems with pertinent positive or pertinent negative responses have been documented in the HPI. ROS Other: All systems not noted in ROS Statement are negative. Constitutional: Denies: fever, chills Respiratory: Denies: cough, dyspnea Cardiovascular: Denies: chest pain, palpitations, orthopnea, syncope Gastrointestinal: Reports: nausea, vomiting, hematemesis. Denies: diarrhea, melena, hematochezia Genitourinary: Denies: dysuria, hematuria Musculoskeletal: Denies: back pain Skin: Denies: rash Neurological: Denies: headache, weakness, numbness Past Medical History Past Medical History: Atrial Fibrillation, Cancer, Chest Pain / Angina, COPD, CVA/TIA, Diabetes Mellitus, GERD/Reflux, GI Bleed, Hyperlipidemia, Hypertension, Pneumonia, Prostate Disorder, Pulmonary Embolus (PE) Additional Past Medical History / Comment(s): tachycardia/palpitations likely d/t alcohol withdrawal. hx of Alcoholism, chronic alcoholic cirrhosis with portal hypertension and previous history of upper and lower GI bleeding, esophageal varices, previous history of childhood seizure which he outgrew not taking any antiepileptic medication-possibly had recent seizure-2018 thought d/t alcohol withdrawal, pulmonary embolism x 2 R lung, TIA, diverticulosis, chronic lower bilateral extremity ankle edema if he walks alot, previous history of septicemia, cervical disc disease with chronic back pain with r sided sciatica, degenerative arthritis involving the lower back, tinnitus, vitamin D deficiency, iron anemia, chronic thrombocytopenia, denies MRSA, C-DIFF -2018, scoliosis, scoliosis. pt had radiation 04/28 for prostate cancer History of Any Multi-Drug Resistant Organisms: C-DIFF, MRSA Date of last positivie culture/infection: n/a MDRO Source:: STOOL Past Surgical History: Appendectomy, Cholecystectomy Additional Past Surgical History / Comment(s): EGDs/esophageal varicies bandings, colonoscopies. Past Anesthesia/Blood Transfusion Reactions: No Reported Reaction Additional Past Anesthesia/Blood Transfusion Reaction / Comment(s): after appendix removed sob Past Psychological History: Anxiety, Depression Smoking Status: Never smoker Past Alcohol Use History: Abuse, Daily Past Drug Use History: None Reported - Past Family History Mother Family Medical History: COPD, CVA/TIA, Dementia Additional Family Medical History / Comment(s): from a stroke Father Family Medical History: Pneumonia Additional Family Medical History / Comment(s): Father of pneumonia when he was close to 80 yrs old. General Exam Limitations: no limitations General appearance: alert, in no apparent distress Head exam: Present: atraumatic, normocephalic Eye exam: Present: normal appearance. Absent: scleral icterus, conjunctival injection ENT exam: Present: normal oropharynx Neck exam: Present: normal inspection Respiratory exam: Present: normal lung sounds bilaterally. Absent: respiratory distress, wheezes, rales, rhonchi, stridor Cardiovascular Exam: Present: normal rhythm, tachycardia, normal heart sounds GI/Abdominal exam: Present: soft. Absent: distended, tenderness, guarding, rebound, rigid Extremities exam: Present: normal inspection, normal capillary refill. Absent: pedal edema, calf tenderness Back exam: Present: normal inspection Neurological exam: Present: alert. Absent: motor sensory deficit Skin exam: Present: warm, dry, intact, normal color. Absent: rash Course Vital Signs 10/19/18 10/19/18 10/19/18 04:53 05:00 05:30 Temperature 98.8 F Pulse Rate 126 H 125 H 125 H Respiratory 20 17 Rate Blood Pressure 142/90 111/77 129/83 O2 Sat by Pulse 93 L 92 L Oximetry 10/19/18 10/19/18 06:00 06:30 Temperature Pulse Rate 118 H 115 H Respiratory 18 Rate Blood Pressure 129/83 111/77 O2 Sat by Pulse 93 L Oximetry Medical Decision Making - Lab Data Result diagrams: 10/19/18 05:05 10/19/18 05:05 Lab Results 10/19/18 10/19/18 10/19/18 Range/Units 05:05 05:05 05:05 WBC 3.8 (3.8-10.6) k/uL RBC 3.57 L (4.30-5.90) m/uL Hgb 11.1 L (13.0-17.5) gm/dL Hct 34.8 L (39.0-53.0) % MCV 97.4 (80.0-100.0) fL MCH 31.2 (25.0-35.0) pg MCHC 32.0 (31.0-37.0) g/dL RDW 17.4 H (11.5-15.5) % Plt Count 153 D (150-450) k/uL Neutrophils % 56 % Lymphocytes % 30 % Monocytes % 10 % Eosinophils % 1 % Basophils % 2 % Neutrophils # 2.2 (1.3-7.7) k/uL Lymphocytes # 1.1 (1.0-4.8) k/uL Monocytes # 0.4 (0-1.0) k/uL Eosinophils # 0.0 (0-0.7) k/uL Basophils # 0.1 (0-0.2) k/uL Anisocytosis Slight Macrocytosis Slight PT (9.0-12.0) sec INR (<1.2) APTT (22.0-30.0) sec Sodium 143 (137-145) mmol/L Potassium 4.5 (3.5-5.1) mmol/L Chloride 104 (98-107) mmol/L Carbon Dioxide 27 (22-30) mmol/L Anion Gap 12 mmol/L BUN 13 (9-20) mg/dL Creatinine 0.63 L (0.66-1.25) mg/dL Est GFR (CKD-EPI)AfAm >90 (>60 ml/min/1.73 sqM) Est GFR (CKD-EPI)NonAf >90 (>60 ml/min/1.73 sqM) Glucose 108 H (74-99) mg/dL Plasma Lactic Acid Hitesh 3.4 H* (0.7-2.0) mmol/L Calcium 8.4 (8.4-10.2) mg/dL Total Bilirubin 1.4 H (0.2-1.3) mg/dL AST 199 H (17-59) U/L ALT 64 (21-72) U/L Alkaline Phosphatase 361 H (38-126) U/L Troponin I (0.000-0.034) ng/mL Total Protein 7.1 (6.3-8.2) g/dL Albumin 3.6 (3.5-5.0) g/dL Serum Alcohol mg/dL 10/19/18 10/19/18 10/19/18 Range/Units 05:05 05:05 05:43 WBC (3.8-10.6) k/uL RBC (4.30-5.90) m/uL Hgb (13.0-17.5) gm/dL Hct (39.0-53.0) % MCV (80.0-100.0) fL MCH (25.0-35.0) pg MCHC (31.0-37.0) g/dL RDW (11.5-15.5) % Plt Count (150-450) k/uL Neutrophils % % Lymphocytes % % Monocytes % % Eosinophils % % Basophils % % Neutrophils # (1.3-7.7) k/uL Lymphocytes # (1.0-4.8) k/uL Monocytes # (0-1.0) k/uL Eosinophils # (0-0.7) k/uL Basophils # (0-0.2) k/uL Anisocytosis Macrocytosis PT 12.0 (9.0-12.0) sec INR 1.1 (<1.2) APTT 25.7 (22.0-30.0) sec Sodium (137-145) mmol/L Potassium (3.5-5.1) mmol/L Chloride (98-107) mmol/L Carbon Dioxide (22-30) mmol/L Anion Gap mmol/L BUN (9-20) mg/dL Creatinine (0.66-1.25) mg/dL Est GFR (CKD-EPI)AfAm (>60 ml/min/1.73 sqM) Est GFR (CKD-EPI)NonAf (>60 ml/min/1.73 sqM) Glucose (74-99) mg/dL Plasma Lactic Acid Hitesh (0.7-2.0) mmol/L Calcium (8.4-10.2) mg/dL Total Bilirubin (0.2-1.3) mg/dL AST (17-59) U/L ALT (21-72) U/L Alkaline Phosphatase (38-126) U/L Troponin I <0.012 (0.000-0.034) ng/mL Total Protein (6.3-8.2) g/dL Albumin (3.5-5.0) g/dL Serum Alcohol 169 mg/dL - EKG Data -: EKG Interpreted by Me EKG shows normal: sinus rhythm, axis (Normal), intervals, QRS complexes (Normal) Rate: tachycardia (Rate 123 bpm) Interpretation: nonspecific ST-T wave changes Disposition Clinical Impression: Upper GI bleed, ETOH abuse Disposition: ADMITTED IP TO THIS [facility] Condition: Fair Instructions (If sedation given, give patient instructions): Gastrointestinal Bleeding (ED) Referrals: Yoon Phillips DO [Primary Care Provider] - 1-2 days
[2018-10-19 05:38] LABS: INR 1.1 (<1.2); Partial Thromboplastin Time 25.7 sec (22.0-30.0)
[2018-10-19] MEDS ORDERED: LORazepam 2 MG/ML INJ IV STA (05:49)
[2018-10-19] MEDS ORDERED: NALOXONE 0.4 MG/ML 1 ML VIAL IV PRN (06:46)
[2018-10-19] MEDS ORDERED: THIAMINE 100 MG/ML 2 ML VIAL IM STA (06:49)
[2018-10-19] MEDS ORDERED: LORazepam 2 MG/ML INJ IV PRN (06:49)
[2018-10-19] MEDS ORDERED: LORazepam 0.5 MG TAB PO PRN (06:50)
[2018-10-19] MEDS: SODIUM CHLORIDE 0.9% 1,000 ML IV SCH ×2 (07:28→19:40)
[2018-10-19] MEDS: ONDANSETRON 4 MG/2 ML VIAL IVP PRN (07:40)
--- NOTE | 2018-10-19 08:37 | P.CONS ---
History of Present Illness - Reason for Consult Consult date: 10/19/18 Hematemesis Requesting physician: Charlette Finney - Chief Complaint Hematemesis - History of Present Illness 63-year-old male history of chronic long-standing active alcoholism and drinks a fifth of liquor daily last alcoholic drink Wednesday and recently hospitalized and discharged last week from acute alcohol intoxication with nonsurgical fall. Admitted with gross coffee-ground emesis hematemesis 3 that started yesterday along with a few episodes of melena a few days prior. Last bloody emesis yesterday evening. No aspirin and NSAIDs. Pepcid twice daily at home. Hemo globin 11.1. Last week hemoglobin 12.1. Platelet 153. INR 1.1. BUN 13. Creatinine 0.6. Total bilirubin 1.4. AST 1. ALT 64. AP 361. Serum alcohol level 169. EGD December [address] Courtneyania evidence of gastritis no mentioning of esophageal varices. Recent CT of the abdomen a week ago reported a cirrhotic-appearing liver. Reports mild midepigastric pain nothing severe. No fever or chills. Review of Systems Constitutional: Denies fever, chills, sweats, weight gain, or loss. HEENT: Negative for migraines, blurred vision or loss, earaches, drainage, tinnitus, oral mucosal lesions, dysphagia, or odynophagia. Cardiac: Negative for chest pain, arrhythmias, or palpitation. Respiratory: Negative for shortness of breath, hemoptysis, cough, or sputum production. Gastrointestinal: See HPI for pertinent findings. Genitourinary: Negative for hematuria, urgency, frequency, polyuria, dysuria, or penile discharge. Musculoskeletal: Negative for muscle aches, swelling, arthritis, and arthralgias. Neurologic: Negative for stroke or TIA. Endocrine: Negative for thyroid problems. Skin: Negative for rash or itching. Psychiatric: Negative history for depression and anxiety Past Medical History Past Medical History: Atrial Fibrillation, Cancer, Chest Pain / Angina, COPD, CVA/TIA, Diabetes Mellitus, GERD/Reflux, GI Bleed, Hyperlipidemia, Hypertension, Pneumonia, Prostate Disorder, Pulmonary Embolus (PE) Additional Past Medical History / Comment(s): tachycardia/palpitations likely d/t alcohol withdrawal. hx of Alcoholism, chronic alcoholic cirrhosis with portal hypertension and previous history of upper and lower GI bleeding, esophageal varices, previous history of childhood seizure which he outgrew not taking any antiepileptic medication-possibly had recent seizure-2018 thought d/t alcohol withdrawal, pulmonary embolism x 2 R lung, TIA, diverticulosis, chronic lower bilateral extremity ankle edema if he walks alot, previous history of septicemia, cervical disc disease with chronic back pain with r sided sciatica, degenerative arthritis involving the lower back, tinnitus, vitamin D deficiency, iron anemia, chronic thrombocytopenia, denies MRSA, C-DIFF -2018, scoliosis, scoliosis. pt had radiation 04/28 for prostate cancer History of Any Multi-Drug Resistant Organisms: C-DIFF, MRSA Year Discovered:: n/a MDRO Source:: STOOL Past Surgical History: Appendectomy, Cholecystectomy Additional Past Surgical History / Comment(s): EGDs/esophageal varicies bandings, colonoscopies. Past Anesthesia/Blood Transfusion Reactions: No Reported Reaction Additional Past Anesthesia/Blood Transfusion Reaction / Comm: after appendix removed sob Past Psychological History: Anxiety, Depression Smoking Status: Never smoker Past Alcohol Use History: Abuse, Daily Past Drug Use History: None Reported - Past Family History Mother Family Medical History: COPD, CVA/TIA, Dementia Additional Family Medical History / Comment(s): from a stroke Father Family Medical History: Pneumonia Additional Family Medical History / Comment(s): Father of pneumonia when he was close to 80 yrs old. Medications and Allergies Home Medications Medication Instructions Recorded Confirmed Type cloNIDine HCL [Catapres] 0.1 mg PO BID #60 tab 03/26/18 10/19/18 Rx Ferrous Sulfate [Iron (65 MG 325 mg PO DAILY 04/24/18 10/19/18 History Elemental)] Magnesium Oxide [Mag-Ox] 400 mg PO HS 04/24/18 10/19/18 History Thiamine Mononitrate (Vit B1) 100 mg PO DAILY 06/21/18 10/19/18 History [Vitamin B-1] Famotidine [Pepcid] 20 mg PO BID 08/23/18 10/19/18 History amLODIPine [Norvasc] 5 mg PO BID 08/25/18 10/19/18 History LORazepam [Ativan] 0.5 mg PO BID PRN 3 Days #6 tab 09/07/18 10/19/18 Rx metFORMIN HCL [Glucophage] 500 mg PO BID 10/19/18 10/19/18 History Allergies Allergy/AdvReac Type Severity Reaction Status Date / Time adhesive tape Allergy Rash/Hives Verified 10/19/18 07:20 latex Allergy Unknown Verified 10/19/18 07:20 egg AdvReac Nausea & Verified 10/19/18 07:20 Vomiting lisinopril AdvReac EYES Verified 10/19/18 07:20 BURN&ITCH/WEAKNESS tomato AdvReac Nausea & Verified 10/19/18 07:20 Vomiting & Diarrhea Physical Exam Vitals: Vital Signs Temp Pulse Resp BP Pulse Ox 10/19/18 07:34 98.7 F 117 H 18 137/90 95 10/19/18 06:30 115 H 18 111/77 10/19/18 06:00 118 H 129/83 93 L 10/19/18 05:30 125 H 17 129/83 10/19/18 05:00 125 H 111/77 92 L 10/19/18 04:53 98.8 F 126 H 20 142/90 93 L Intake and Output 10/18/18 10/19/18 10/19/18 22:59 06:59 14:59 Intake Total 2000 Balance 2000 Intake: Amount of Fluid Infused ( 2000 ml) Other: Weight 74.389 kg General appearance: The patient is alert, oriented, in no acute distress. HET: Head is normocephalic and atraumatic. Pupils are equal and reactive. Oropharynx is clear without lesions. Neck: Supple without lymphadenopathy. Trachea midline. Heart: S1 S2. Regular rate and rhythm. Lungs: No crackles or wheezes are heard. Abdomen: Soft, mild midepigastric tenderness, nondistended with bowel sounds. No peritoneal signs. No palpable organomegaly or masses. Extremities: Normal skin color and turgor. No cyanosis, rash, ulceration, clubbing, or edema. Radial and pedal pulses are 2/4 bilaterally. Neurological: Asterixis noted. No focal deficits. Strength and sensation are grossly intact. Results CBC & Chem 7: 10/19/18 05:05 10/19/18 05:05 Labs: Abnormal Lab Results - Last 24 Hours (Table) 10/19/18 10/19/18 10/19/18 Range/Units 05:05 05:05 05:05 RBC 3.57 L (4.30-5.90) m/uL Hgb 11.1 L (13.0-17.5) gm/dL Hct 34.8 L (39.0-53.0) % RDW 17.4 H (11.5-15.5) % Creatinine 0.63 L (0.66-1.25) mg/dL Glucose 108 H (74-99) mg/dL Plasma Lactic Acid Hitesh 3.4 H* (0.7-2.0) mmol/L Total Bilirubin 1.4 H (0.2-1.3) mg/dL AST 199 H (17-59) U/L Alkaline Phosphatase 361 H (38-126) U/L Assessment and Plan (1) Hematemesis Narrative/Plan: 63-year-old gentleman long-standing chronic alcoholism last drink 2 days ago with underlying alcohol liver disease alcohol cirrhosis presents with acute hematemesis and coffee-ground emesis with melena preceding 2 days prior. Possible peptic ulcer disease possible alcohol-induced gastritis esophagitis duodenitis possible esophageal varices possible portal hypertensive gastropathy. Current Visit: Yes Status: Acute Code(s): K92.0 - HEMATEMESIS SNOMED Code(s): 7930702 (2) ETOH abuse Current Visit: Yes Status: Acute Code(s): F10.10 - ALCOHOL ABUSE, UNCOMPLICATED SNOMED Code(s): 91901013 (3) Acute GI bleeding Current Visit: No Status: Acute Code(s): K92.2 - GASTROINTESTINAL HEMORRHAGE, UNSPECIFIED SNOMED Code(s): 95753744 (4) Alcoholic liver disease Narrative/Plan: Suspect alcohol liver cirrhosis per CT abdominal imaging one week ago. Current Visit: Yes Status: Acute Code(s): K70.9 - ALCOHOLIC LIVER DISEASE, UNSPECIFIED SNOMED Code(s): 95979703 Plan: 1. We'll check ammonia level secondary to asterixis. Nothing by mouth. Protonix 40 mg twice daily. EGD today. Alcohol abstinence strongly advised. The relationship counselor has discussed the risks, benefits and alternative therapies for the above-mentioned procedure and for both sedation/analgesia as well as necessary blood product administration, if indicated, as they pertain to this patient. The patient has indicated understanding and acceptance of the risks and procedures discussed. Thank you for this kind referral and the opportunity to participate in the care of your patient. This consultation was discussed with Dr. Hicks. The impression and plan of care have been directed as dictated.
[2018-10-19] MEDS: PANTOPRAZOLE 40 MG/10 ML VIAL IV SCH ×2 (09:36→20:33)
[2018-10-19] MEDS: FERROUS SULFATE 325 MG TAB PO SCH (09:36)
[2018-10-19] MEDS: amLODIPine 5 MG TAB PO SCH ×2 (09:36→20:33)
[2018-10-19] MEDS: cloNIDine HCL 0.1 MG TAB PO SCH ×2 (09:36→20:33)
[2018-10-19] MEDS: LORazepam 2 MG/ML INJ IV PRN ×4 (09:37→23:14)
[2018-10-19 10:08] LABS: Lactic Acid, Venous 2.6 mmol/L (0.7-2.0)
--- NOTE | 2018-10-19 13:36 | P.HPIM ---
History of Present Illness H&P Date: 10/19/18 This is a 61-year-old male patient of Dr. Phillips. Patient presented with complaints of coffee-ground emesis. Patient has known past medical history of EtOH. Patient reports that he was drinking earlier in the day when he developed nausea and vomiting patient reports a fair amount of dark emesis. Patient denies any associated abdominal pain. Patient denies any pets patient diarrhea. Patient's additional medical history includes atrial fibrillation which she is not on anticoagulation due to previous GI bleeds, chest pain, COPD, CVA, diabetes mellitus, GERD, GI bleed, hyperlipidemia, hypertension, pneumonia, prostate disorder and pulmonary embolism. hemoglobin stable at 11.1. EKG comp leted showing sinus tachycardia. Serum alcohol 169. Patient's lactic acid also elevated at 3.4. Patient denies any specific acute complaints. Patient denies cough or fever. Patient denies any urinary burning or frequency. GI services have been consulted. Alcohol withdrawal protocol initiated. At this time patient denies chest pain or shortness breath. Patient denies nausea vomiting or diarrhea. Patient denies any urinary burning or frequency. Review of Systems Please refer to HPI otherwise unremarkable Past Medical History Past Medical History: Atrial Fibrillation, Cancer, Chest Pain / Angina, COPD, CVA/TIA, Diabetes Mellitus, GERD/Reflux, GI Bleed, Hyperlipidemia, Hypertension, Pneumonia, Prostate Disorder, Pulmonary Embolus (PE) Additional Past Medical History / Comment(s): tachycardia/palpitations likely d/t alcohol withdrawal. hx of Alcoholism, chronic alcoholic cirrhosis with po rtal hypertension and previous history of upper and lower GI bleeding, esophageal varices, previous history of childhood seizure which he outgrew not taking any antiepileptic medication-possibly had recent seizure-2017 thought d/t alcohol withdrawal, pulmonary embolism x 2 R lung, TIA, diverticulosis, chronic lower bilateral extremity ankle edema if he walks alot, previous history of septicemia, cervical disc disease with chronic back pain with r sided sciatica, degenerative arthritis involving the lower back, tinnitus, vitamin D deficiency, iron anemia, chronic thrombocytopenia, denies MRSA, C-DIFF -2018, scoliosis, scoliosis. pt had radiation 04/28 for prostate cancer History of Any Multi-Drug Resistant Organisms: C-DIFF, MRSA Date of last positivie culture/infection: n/a MDRO Source:: STOOL Past Surgical History: Appendectomy, Cholecystectomy Additional Past Surgical History / Comment(s): EGDs/esophageal varicies bandings, colonoscopies. Past Anesthesia/Blood Transfusion Reactions: No Reported Reaction Additional Past Anesthesia/Blood Transfusion Reaction / Comment(s): after appendix removed sob Past Psychological History: Anxiety, Depression Smoking Status: Never smoker Past Alcohol Use History: Abuse, Daily Past Drug Use History: None Reported - Past Family History Mother Family Medical History: COPD, CVA/TIA, Dementia Additional Family Medical History / Comment(s): from a stroke Father Family Medical History: Pneumonia Additional Family Medical History / Comment(s): Father of pneumonia when he was close to 80 yrs old. Medications and Allergies Home Medications Medication Instructions Recorded Confirmed Type cloNIDine HCL [Catapres] 0.1 mg PO BID #60 tab 03/26/18 10/19/18 Rx Ferrous Sulfate [Iron (65 MG 325 mg PO DAILY 04/24/18 10/19/18 History Elemental)] Magnesium Oxide [Mag-Ox] 400 mg PO HS 04/24/18 10/19/18 History Thiamine Mononitrate (Vit B1) 100 mg PO DAILY 06/21/18 10/19/18 History [Vitamin B-1] Famotidine [Pepcid] 20 mg PO BID 08/23/18 10/19/18 History amLODIPine [Norvasc] 5 mg PO BID 08/25/18 10/19/18 History LORazepam [Ativan] 0.5 mg PO BID PRN 3 Days #6 tab 09/07/18 10/19/18 Rx metFORMIN HCL [Glucophage] 500 mg PO BID 10/19/18 10/19/18 History Allergies Allergy/AdvReac Type Severity Reaction Status Date / Time adhesive tape Allergy Rash/Hives Verified 10/19/18 07:20 latex Allergy Unknown Verified 10/19/18 07:20 egg AdvReac Nausea & Verified 10/19/18 07:20 Vomiting lisinopril AdvReac EYES Verified 10/19/18 07:20 BURN&ITCH/WEAKNESS tomato AdvReac Nausea & Verified 10/19/18 07:20 Vomiting & Diarrhea Physical Exam Vitals: Vital Signs Temp Pulse Pulse Pulse Resp BP BP 10/19/18 11:50 98.2 F 106 H 16 106/62 10/19/18 09:04 98.1 F 104 H 17 110/63 10/19/18 08:42 97.9 F 112 H 16 132/86 10/19/18 08:00 112 H 10/19/18 07:34 98.7 F 117 H 18 137/90 10/19/18 06:30 115 H 18 111/77 10/19/18 06:00 118 H 129/83 10/19/18 05:30 125 H 17 129/83 10/19/18 05:00 125 H 111/77 10/19/18 04:53 98.8 F 126 H 20 142/90 Pulse Ox 10/19/18 11:50 93 L 10/19/18 09:04 96 10/19/18 08:42 96 10/19/18 08:00 10/19/18 07:34 95 10/19/18 06:30 10/19/18 06:00 93 L 10/19/18 05:30 10/19/18 05:00 92 L 10/19/18 04:53 93 L Intake and Output 10/18/18 10/19/18 10/19/18 22:59 06:59 14:59 Intake Total 1999 Balance 1999 Intake: Amount of Fluid Infused ( 2000 ml) Other: Voiding Method Toilet Weight 74.389 kg Head normocephalic Neck supple Lungs clear to auscultation bilaterally no wheezing or crackles Heart regular rate and rhythm S1-S2, no rub or gallop Abdomen is soft nontender nondistended positive bowel sounds no he patosplenomegaly Extremities no edema Neuro alert and orientated to 3 Results CBC & Chem 7: 10/19/18 05:05 10/19/18 05:05 Labs: Abnormal Lab Results - Last 24 Hours (Table) 10/19/18 10/19/18 10/19/18 Range/Units 05:05 05:05 05:05 RBC 3.57 L (4.30-5.90) m/uL Hgb 11.1 L (13.0-17.5) gm/dL Hct 34.8 L (39.0-53.0) % RDW 17.4 H (11.5-15.5) % Creatinine 0.63 L (0.66-1.25) mg/dL Glucose 108 H (74-99) mg/dL Plasma Lactic Acid Hitesh 3.4 H* (0.7-2.0) mmol/L Total Bilirubin 1.4 H (0.2-1.3) mg/dL AST 199 H (17-59) U/L Alkaline Phosphatase 361 H (38-126) U/L 10/19/18 Range/Units 08:53 RBC (4.30-5.90) m/uL Hgb (13.0-17.5) gm/dL Hct (39.0-53.0) % RDW (11.5-15.5) % Creatinine (0.66-1.25) mg/dL Glucose (74-99) mg/dL Plasma Lactic Acid Hitesh 2.6 H* (0.7-2.0) mmol/L Total Bilirubin (0.2-1.3) mg/dL AST (17-59) U/L Alkaline Phosphatase (38-126) U/L Thrombosis Risk Factor Assmnt - Choose All That Apply Each Factor Represents 1 point: Abnormal pulmonary function (COPD), Age 41-60 years, Obesity (BMI >25) Other Risk Factors: No Thrombosis Risk Factor Assessment Total Risk Factor Score: 3 Thrombosis Risk Factor Assessment Level: Moderate Risk Assessment and Plan Assessment: 1. GI bleed with hematemesis. GI services have been consulted concerning EGD in a.m. 2. Alcohol withdrawal. CIWA protocal initiated. Continue Thiamine 3. Recent fall with severe back pain. Patient was developing orthopedic services at that time recommended TLSO brace. 4. History of COPD. No exacerbation at this time 5. History of liver cirrhosis with portal hypertension 6. History of proximal atrial fibrillation not on anticoagulation due to history of bleeding from esophageal varices 7. Elevated liver enzymes. Likely secondary to patient's liver cirrhosis 8. History of pulmonary embolism 9. Diabetes mellitus type 2. Glucose metformin currently on hold. 7 scale coverage has been ordered 10. Previous history of C. diff infection 11. Elevated lactic acid. Initial lactic acid 3.4. Patient has had issues with chronic lactic acid in the past. Repeat lactic acid 2.6. Will order repeat in 4 hours. No signs of acute infection at this time DVT prophylaxis SCDs. GI prophylaxis Protonix Time with Patient: Greater than 30 (I performed an examination of the patient and discussed their management with the Nurse Practitioner. I have reviewed the Nurse Practitioner's notes and agree with the documented findings and plan of care. Greater than 60% of the total time spent in counseling and coordination of care)
[2018-10-19] MEDS ORDERED: LIDOCAINE 1% INJ 10MG/ML (20 ML MDV) ONE (14:14)
[2018-10-19] MEDS ORDERED: PROPOFOL 10 MG/ML 20 ML VIAL IV ONE (14:14)
[2018-10-19] MEDS ORDERED: IV FLUID CONTINUATION 200 ML IV ONE (14:22)
[2018-10-19] MEDS ORDERED: LACTATED RINGERS 500 ML IV ONE ×2 (14:39)
[2018-10-19] MEDS: LACTATED RINGERS 500 ML IV ONE ×2 (14:39→16:51)
--- NOTE | 2018-10-19 14:46 | P.PCN ---
Date of Procedure: 10/19/18 Description of Procedure: BRIEF HISTORY: 63-year-old male history of chronic long-standing active alcoholism and drinks a fifth of liquor daily last alcoholic drink Wednesday and recently hospitalized and discharged last week from acute alcohol intoxication with nonsurgical fall. Admitted with gross coffee-ground emesis hematemesis 3 that started yesterday along with a few episodes of melena a few days prior. Last bloody emesis yesterday evening. No aspirin and NSAIDs. Pepcid twice daily at home. Hemoglobin 11.1. Last week hemoglobin 12.1. Platelet 153. INR 1.1. BUN 13. Creatinine 0.6. Total bilirubin 1.4. AST 1. ALT 64. AP 361. Serum alcohol level 169. EGD December [address] Ramirez evidence of gastritis no mentioning of esophageal varices. Recent CT of the abdomen a week ago reported a cirrhotic-appearing liver. Reports mild midepigastric pain nothing severe. No fever or chills.. PROCEDURE PERFORMED: Esophagogastroduodenoscopy with biopsy. PREOPERATIVE DIAGNOSIS: Melena, abdominal pain, anemia acute blood loss. ESTIMATED BLOOD LOSS: Minimal. IV sedation per anesthesia. PROCEDURE: After informed consent was obtained, the patient was brought into the endoscopy unit. IV sedation was administered by Anesthesia under continuous monitoring. Initially the Olympus GIF-190 video endoscope was inserted into the mouth. Esophagus intubated without any difficulty. It was gradually advanced into the stomach and duodenum and carefully examined. The bulb and the second part of the duodenum were significant for mild scattered erythema suggestive of mild duodenitis, biopsied. The scope at this time was withdrawn to the stomach, adequately insufflated with air, and upon careful examination, mucosa of the antrum, body, cardia and the fundus were significant for diffuse erythema and mucosal pattern consistent with portal hypertensive gastropathy with biopsies of the antrum and body taken. The scope was then withdrawn into the esophagus. The GE junction was located at 40 cm from the incisors. The patient had 10 cm of early grade D esophagitis the mid to distal esophagus with no masses or ulceration noted. The patient tolerated the procedure well. IMPRESSION: 1. LA grade D esophagitis. 2. Portal hypertensive gastropathy, antrum and body biopsies. 3. Mild duodenitis, biopsied.. RECOMMENDATIONS: The findings of this examination were discussed with the patient. Okay for full liquid diet, advance tomorrow if stable. Continue to monitor hemoglobin and hematocrit and treat use as needed. Continue Protonix 40 mg twice daily. Will add Carafate 3 times a day before meals.
[2018-10-19 17:44] LABS: Glucose,Whole Blood 116 mg/dL (75-99)
[2018-10-19] MEDS: SUCRALFATE 1 GM TAB PO SCH (18:01)
[2018-10-19] MEDS: THIAMINE 100 MG TAB PO SCH (18:01)
[2018-10-19] MEDS: INSULIN ASPART (NovoLOG) 100 UNIT/ML VIAL SQ SCH ×2 (18:28→20:33)
[2018-10-19 20:29] LABS: Glucose,Whole Blood 154 mg/dL (75-99)
[2018-10-19] MEDS: MAGNESIUM OXIDE 400 MG TAB PO SCH (20:33)
[2018-10-19 22:32] LABS: Anisocytosis Slight; HCT 29.7 % (39.0-53.0); HGB 9.8 gm/dL (13.0-17.5); MCH 32.4 pg (25.0-35.0); MCV 98.2 fL (80.0-100.0); Macrocytosis Slight; Mean Platelet Volume 9.2; Platelet Count 118 k/uL (150-450); RBC 3.02 m/uL (4.30-5.90); RDW 16.8 % (11.5-15.5); WBC 3.9 k/uL (3.8-10.6)
[2018-10-20 03:30] LABS: Anisocytosis Slight; HCT 30.9 % (39.0-53.0); HGB 10.3 gm/dL (13.0-17.5); MCH 32.6 pg (25.0-35.0); MCHC 33.3 g/dL (31.0-37.0); Macrocytosis Slight; Mean Platelet Volume 8.4; Platelet Count 115 k/uL (150-450); RBC 3.16 m/uL (4.30-5.90); RDW 17.4 % (11.5-15.5); WBC 4.1 k/uL (3.8-10.6)
[2018-10-20 03:47] LABS: ALT 47 U/L (21-72); AST 169 U/L (17-59); African American GFR (CKD) >90 (>60 ml/min/1.73 sqM); Albumin 3.2 g/dL (3.5-5.0); Alkaline Phosphatase 311 U/L (38-126); Anion Gap 7 mmol/L; Blood Urea Nitrogen 10 mg/dL (9-20); Calcium 8.2 mg/dL (8.4-10.2); Carbon Dioxide 28 mmol/L (22-30); Chloride 102 mmol/L (98-107); Glucose 110 mg/dL (74-99); Potassium 3.6 mmol/L (3.5-5.1); Sodium 137 mmol/L (137-145); Total Bilirubin 2.5 mg/dL (0.2-1.3); Total Protein 6.6 g/dL (6.3-8.2)
[2018-10-20] MEDS: SODIUM CHLORIDE 0.9% 1,000 ML IV SCH ×4 (05:48→23:49)
[2018-10-20] MEDS: HYDROmorphone 0.5 MG/0.5 ML SYRINGE IVP PRN ×3 (06:58→21:09)
[2018-10-20 07:02] LABS: Glucose,Whole Blood 115 mg/dL (75-99)
[2018-10-20] MEDS: INSULIN ASPART (NovoLOG) 100 UNIT/ML VIAL SQ SCH ×4 (07:33→21:09)
[2018-10-20] MEDS: PANTOPRAZOLE 40 MG/10 ML VIAL IV SCH ×2 (07:50→21:09)
[2018-10-20] MEDS: SUCRALFATE 1 GM TAB PO SCH ×3 (07:51→17:34)
[2018-10-20] MEDS: THIAMINE 100 MG TAB PO SCH ×2 (07:51→17:34)
[2018-10-20] MEDS: FERROUS SULFATE 325 MG TAB PO SCH (07:51)
[2018-10-20] MEDS: cloNIDine HCL 0.1 MG TAB PO SCH ×2 (07:51→21:09)
[2018-10-20] MEDS: amLODIPine 5 MG TAB PO SCH ×2 (07:51→21:09)
[2018-10-20] MEDS ORDERED: PANTOPRAZOLE 40 MG/10 ML VIAL IV SCH (09:00)
--- NOTE | 2018-10-20 09:21 | P.PN ---
Subjective Progress Note Date: 10/20/18 Principal diagnosis: GI bleed EtOH abuse EtOH intoxication Status post EGD yesterday findings of portal hypertensive gastropathy. No evidence of varices or peptic ulcer disease. No further bleeding. Tolerating diet requesting advancement. Afebrile. Hemoglobin stable 10.3. Objective - Vital Signs Vital signs: Vital Signs Temp 98.6 F 10/20/18 04:53 Pulse 106 H 10/20/18 07:21 Resp 18 10/20/18 04:53 BP 136/83 10/20/18 04:53 Pulse Ox 94 L 10/20/18 04:53 Intake & Output 10/19/18 10/20/18 10/20/18 18:59 06:59 18:59 Intake Total 3750 120 Balance 3750 120 Intake: IV 600 Amount of Fluid Infused ( 2000 ml) Intake, IV Titration 1050 Amount Sodium Chloride 0.9% 1, 1050 000 ml @ 120 mls/hr IV . Q8H20M TANYA Rx#:[id number] Oral 100 120 Other: Voiding Method Toilet Toilet Toilet Urinal # Voids 1 4 # Bowel Movements 3 - Exam General appearance: The patient is alert, oriented, in no acute distress. HET: Head is normocephalic and atraumatic. Pupils are equal and reactive. Oropharynx is clear without lesions. Neck: Supple without lymphadenopathy. Trachea midline. Heart: S1 S2. Regular rate and rhythm. Lungs: No crackles or wheezes are heard. Abdomen: Soft, nontender, nondistended with bowel sounds. No peritoneal signs. No palpable organomegaly or masses. Extremities: Normal skin color and turgor. No cyanosis, rash, ulceration, clubbing, or edema. Radial and pedal pulses are 2/4 bilaterally. Neurological: No focal deficits. Strength and sensation are grossly intact. - Labs CBC & Chem 7: 10/20/18 03:10 10/20/18 03:10 Labs: Abnormal Lab Results - Last 24 Hours (Table) 10/19/18 10/19/18 10/19/18 Range/Units 08:53 17:43 20:28 RBC (4.30-5.90) m/uL Hgb (13.0-17.5) gm/dL Hct (39.0-53.0) % RDW (11.5-15.5) % Plt Count (150-450) k/uL Creatinine (0.66-1.25) mg/dL Glucose (74-99) mg/dL POC Glucose (mg/dL) 116 H 154 H (75-99) mg/dL Plasma Lactic Acid Hitesh 2.6 H* (0.7-2.0) mmol/L Calcium (8.4-10.2) mg/dL Total Bilirubin (0.2-1.3) mg/dL AST (17-59) U/L Alkaline Phosphatase (38-126) U/L Albumin (3.5-5.0) g/dL 10/19/18 10/20/18 10/20/18 Range/Units 22:14 03:10 03:10 RBC 3.02 L 3.16 L (4.30-5.90) m/uL Hgb 9.8 L 10.3 L (13.0-17.5) gm/dL Hct 29.7 L 30.9 L (39.0-53.0) % RDW 16.8 H 17.4 H (11.5-15.5) % Plt Count 118 L 115 L (150-450) k/uL Creatinine 0.58 L (0.66-1.25) mg/dL Glucose 110 H (74-99) mg/dL POC Glucose (mg/dL) (75-99) mg/dL Plasma Lactic Acid Hitesh (0.7-2.0) mmol/L Calcium 8.2 L (8.4-10.2) mg/dL Total Bilirubin 2.5 H (0.2-1.3) mg/dL AST 169 H (17-59) U/L Alkaline Phosphatase 311 H (38-126) U/L Albumin 3.2 L (3.5-5.0) g/dL 10/20/18 Range/Units 07:01 RBC (4.30-5.90) m/uL Hgb (13.0-17.5) gm/dL Hct (39.0-53.0) % RDW (11.5-15.5) % Plt Count (150-450) k/uL Creatinine (0.66-1.25) mg/dL Glucose (74-99) mg/dL POC Glucose (mg/dL) 115 H (75-99) mg/dL Plasma Lactic Acid Hitesh (0.7-2.0) mmol/L Calcium (8.4-10.2) mg/dL Total Bilirubin (0.2-1.3) mg/dL AST (17-59) U/L Alkaline Phosphatase (38-126) U/L Albumin (3.5-5.0) g/dL Assessment and Plan (1) Hematemesis Narrative/Plan: 63-year-old gentleman long-standing chronic alcoholism last drink 2 days ago with underlying alcohol liver disease alcohol cirrhosis presents with acute hematemesis and coffee-ground emesis with melena preceding 2 days prior. Status post EGD findings of portal hypertensive gastropathy no evidence of varices or peptic ulcer disease. Current Visit: Yes Status: Acute Code(s): K92.0 - HEMATEMESIS SNOMED Code(s): 4264997 (2) ETOH abuse Current Visit: Yes Status: Acute Code(s): F10.10 - ALCOHOL ABUSE, UNCOMPLICATED SNOMED Code(s): 93118463 (3) Acute GI bleeding Current Visit: No Status: Acute Code(s): K92.2 - GASTROINTESTINAL HEMORRHAGE, UNSPECIFIED SNOMED Code(s): 77223375 (4) Alcoholic liver disease Narrative/Plan: Suspect alcohol liver cirrhosis per CT abdominal imaging one week ago. Current Visit: Yes Status: Acute Code(s): K70.9 - ALCOHOLIC LIVER DISEASE, UNSPECIFIED SNOMED Code(s): 76673407 Plan: 1. Low residue diet. Discharge per medicine. Protonix 40 mg daily. Alcohol abstinence reenforced. Follow-up in office in 2-3 weeks. Assessment and plan a care discussed with Dr. Sheehan
[2018-10-20] MEDS: LORazepam 2 MG/ML INJ IV PRN ×4 (10:16→19:54)
[2018-10-20 11:47] LABS: Glucose,Whole Blood 105 mg/dL (75-99)
--- NOTE | 2018-10-20 13:14 | P.PN ---
Subjective Progress Note Date: 10/20/18 This is a 61-year-old male patient of Dr. Phillips. Patient presented with complaints of coffee-ground emesis. Patient has known past medical history of EtOH. Patient reports that he was drinking earlier in the day when he developed nausea and vomiting patient reports a fair amount of dark emesis. Patient denies any associated abdominal pain. Patient denies any pets patient diarrhea. Patient's additional medical history includes atrial fibrillation which she is not on anticoagulation due to previous GI bleeds, chest pain, COPD, CVA, diabetes mellitus, GERD, GI bleed, hyperlipidemia, hypertension, pneumonia, prostate disorder and pulmonary embolism. hemoglobin stable at 11.1. EKG completed showing sinus tachycardia. Serum alcohol 169. Patient's lactic acid also elevated at 3.4. Patient denies any specific acute complaints. Patient denies cough or fever. Patient denies any urinary burning or frequency. GI services have been consulted. Alcohol withdrawal protocol initiated. At this time patient denies chest pain or shortness breath. Patient denies nausea vomiting or diarrhea. Patient denies any urinary burning or frequency. On 10/20/2018 patient is alert and oriented 3. Patient still states he feels weak and a little shaky. Patient did have EGD yesterday showing findings of portal hypertensive gastropathy no evidence of varices or peptic ulcer disease. Hemoglobin remained stable. At this time patient reports he just doesn't appear ready to go home yet. Patient denies any chest pain or shortness of breath. Patient denies nausea vomiting or diarrhea. Patient denies any urinary burning or frequency Objective - Vital Signs Vital signs: Vital Signs Temp 97.9 F 10/20/18 12:34 Pulse 98 10/20/18 12:34 Resp 17 10/20/18 12:34 BP 111/75 10/20/18 12:34 Pulse Ox 97 10/20/18 12:34 Intake & Output 10/19/18 10/20/18 10/20/18 18:59 06:59 18:59 Intake Total 3750 120 Balance 3750 120 Intake: IV 600 Amount of Fluid Infused ( 2000 ml) Intake, IV Titration 1050 Amount Sodium Chloride 0.9% 1, 1050 000 ml @ 120 mls/hr IV . Q8H20M [facility] Rx#:[id number] Oral 100 120 Other: Voiding Method Toilet Toilet Toilet Urinal # Voids 1 4 # Bowel Movements 3 - Exam Head normocephalic Neck supple Lungs clear to auscultation bilaterally no wheezing or crackles Heart regular rate and rhythm S1-S2, no rub or gallop Abdomen is soft nontender nondistended positive bowel sounds no hepatosplenomegaly Extremities no edema Neuro alert and orientated to 3 - Labs CBC & Chem 7: 10/20/18 03:10 10/20/18 03:10 Labs: Abnormal Lab Results - Last 24 Hours (Table) 10/19/18 10/19/18 10/19/18 Range/Units 17:43 20:28 22:14 RBC 3.02 L (4.30-5.90) m/uL Hgb 9.8 L (13.0-17.5) gm/dL Hct 29.7 L (39.0-53.0) % RDW 16.8 H (11.5-15.5) % Plt Count 118 L (150-450) k/uL Creatinine (0.66-1.25) mg/dL Glucose (74-99) mg/dL POC Glucose (mg/dL) 116 H 154 H (75-99) mg/dL Calcium (8.4-10.2) mg/dL Total Bilirubin (0.2-1.3) mg/dL AST (17-59) U/L Alkaline Phosphatase (38-126) U/L Albumin (3.5-5.0) g/dL 10/20/18 10/20/18 10/20/18 Range/Units 03:10 03:10 07:01 RBC 3.16 L (4.30-5.90) m/uL Hgb 10.3 L (13.0-17.5) gm/dL Hct 30.9 L (39.0-53.0) % RDW 17.4 H (11.5-15.5) % Plt Count 115 L (150-450) k/uL Creatinine 0.58 L (0.66-1.25) mg/dL Glucose 110 H (74-99) mg/dL POC Glucose (mg/dL) 115 H (75-99) mg/dL Calcium 8.2 L (8.4-10.2) mg/dL Total Bilirubin 2.5 H (0.2-1.3) mg/dL AST 169 H (17-59) U/L Alkaline Phosphatase 311 H (38-126) U/L Albumin 3.2 L (3.5-5.0) g/dL 10/20/18 Range/Units 11:45 RBC (4.30-5.90) m/uL Hgb (13.0-17.5) gm/dL Hct (39.0-53.0) % RDW (11.5-15.5) % Plt Count (150-450) k/uL Creatinine (0.66-1.25) mg/dL Glucose (74-99) mg/dL POC Glucose (mg/dL) 105 H (75-99) mg/dL Calcium (8.4-10.2) mg/dL Total Bilirubin (0.2-1.3) mg/dL AST (17-59) U/L Alkaline Phosphatase (38-126) U/L Albumin (3.5-5.0) g/dL Assessment and Plan Assessment: 1. GI bleed with hematemesis. G status post EGD findings of portal hypertensive gastropathy no evidence of varices or peptic ulcer disease. Hemoglobin remained stable at 10.3. Continue Protonix daily. Follow-up with GI services in 2-3 weeks 2. Alcohol withdrawal. CIWA protocal initiated. Continue Thiamine 3. Recent fall with severe back pain. Patient was developing orthopedic services at that time recommended TLSO brace. 4. History of COPD. No exacerbation at this time 5. History of liver cirrhosis with portal hypertension 6. History of proximal atrial fibrillation not on anticoagulation due to history of bleeding from esophageal varices 7. Elevated liver enzymes. Likely secondary to patient's liver cirrhosis 8. History of pulmonary embolism 9. Diabetes mellitus type 2. Glucose metformin currently on hold. 7 scale coverage has been ordered 10. Previous history of C. diff infection 11. Elevated lactic acid. Initial lactic acid 3.4. Patient has had issues with chronic lactic acid in the past. Repeat lactic acid 2.6. Will order repeat in 4 hours. No signs of acute infection at this time. lactic acid improving to 0.9 DVT prophylaxis SCDs. GI prophylaxis Protonix anticipate discharge in the next 24-48 hours I performed an examination of the patient and discussed their management with the Nurse Practitioner. I have reviewed the Nurse Practitioner's notes and agree with the documented findings and plan of care
[2018-10-20 13:42] VITALS: BMI 27.3
[2018-10-20 17:04] LABS: Glucose,Whole Blood 114 mg/dL (75-99)
[2018-10-20 20:03] LABS: Glucose,Whole Blood 142 mg/dL (75-99)
[2018-10-20] MEDS: MAGNESIUM OXIDE 400 MG TAB PO SCH (21:09)
[2018-10-21] MEDS: LORazepam 2 MG/ML INJ IV PRN ×2 (00:40→03:31)
[2018-10-21] MEDS: HYDROmorphone 0.5 MG/0.5 ML SYRINGE IVP PRN ×2 (02:15→06:26)
[2018-10-21] MEDS: ONDANSETRON 4 MG/2 ML VIAL IVP PRN (03:27)
[2018-10-21 07:27] LABS: Glucose,Whole Blood 108 mg/dL (75-99)
[2018-10-21] MEDS: INSULIN ASPART (NovoLOG) 100 UNIT/ML VIAL SQ SCH ×4 (07:30→20:30)
[2018-10-21] MEDS: amLODIPine 5 MG TAB PO SCH ×2 (08:50→20:30)
[2018-10-21] MEDS: FERROUS SULFATE 325 MG TAB PO SCH (08:50)
[2018-10-21] MEDS: PANTOPRAZOLE 40 MG/10 ML VIAL IV SCH ×2 (08:50→20:30)
[2018-10-21] MEDS: cloNIDine HCL 0.1 MG TAB PO SCH ×2 (08:50→20:30)
[2018-10-21] MEDS: IBUPROFEN 400 MG TAB PO PRN ×2 (08:51→15:40)
[2018-10-21] MEDS: SUCRALFATE 1 GM TAB PO SCH ×3 (08:51→17:30)
[2018-10-21 09:43] LABS: ALT 52 U/L (21-72); AST 163 U/L (17-59); African American GFR (CKD) >90 (>60 ml/min/1.73 sqM); Albumin 3.7 g/dL (3.5-5.0); Alkaline Phosphatase 312 U/L (38-126); Anion Gap 12 mmol/L; Blood Urea Nitrogen 7 mg/dL (9-20); Calcium 8.5 mg/dL (8.4-10.2); Carbon Dioxide 24 mmol/L (22-30); Chloride 100 mmol/L (98-107); Glucose 144 mg/dL (74-99); Potassium 3.8 mmol/L (3.5-5.1); Sodium 136 mmol/L (137-145); Total Bilirubin 2.2 mg/dL (0.2-1.3); Total Protein 7.5 g/dL (6.3-8.2)
[2018-10-21] MEDS: THIAMINE 100 MG TAB PO SCH ×2 (11:26→13:06)
--- NOTE | 2018-10-21 11:45 | P.PN ---
Subjective Progress Note Date: 10/21/18 This is a 61-year-old male patient of Dr. Phillips. Patient presented with complaints of coffee-ground emesis. Patient has known past medical history of EtOH. Patient reports that he was drinking earlier in the day when he developed nausea and vomiting patient reports a fair amount of dark emesis. Patient denies any associated abdominal pain. Patient denies any pets patient diarrhea. Patient's additional medical history includes atrial fibrillation which she is not on anticoagulation due to previous GI bleeds, chest pain, COPD, CVA, diabetes mellitus, GERD, GI bleed, hyperlipidemia, hypertension, pneumonia, prostate disorder and pulmonary embolism. hemoglobin stable at 11.1. EKG completed showing sinus tachycardia. Serum alcohol 169. Patient's lactic acid also elevated at 3.4. Patient denies any specific acute complaints. Patient denies cough or fever. Patient denies any urinary burning or frequency. GI services have been consulted. Alcohol withdrawal protocol initiated. At this time patient denies chest pain or shortness breath. Patient denies nausea vomiting or diarrhea. Patient denies any urinary burning or frequency. On 10/20/2018 patient is alert and oriented 3. Patient still states he feels weak and a little shaky. Patient did have EGD yesterday showing findings of portal hypertensive gastropathy no evidence of varices or peptic ulcer disease. Hemoglobin remained stable. At this time patient reports he just doesn't appear ready to go home yet. Patient denies any chest pain or shortness of breath. Patient denies nausea vomiting or diarrhea. Patient denies any urinary burning or frequency On 10/21/2018 patient is alert and oriented 3. Patient reports he is feeling increased withdrawal symptoms today. Continue with alcohol withdrawal protocol. Per social work patient has appointment at [place] on 10/25/2018. This time patient denies any chest pain or shortness of breath. Patient denies nausea vomiting or diarrhea. Patient denies any signs of bleeding. Hemoglobin remains stable Objective - Vital Signs Vital signs: Vital Signs Temp 98.0 F 10/21/18 04:41 Pulse 111 H 10/21/18 04:41 Resp 16 10/21/18 04:41 BP 134/77 10/21/18 04:41 Pulse Ox 97 10/21/18 04:41 Intake & Output 10/20/18 10/21/18 10/21/18 18:59 06:59 18:59 Intake Total 1500 3520 Output Total 1350 1700 Balance 150 1820 Weight 74.389 kg Intake: Intake, IV Titration 850 1440 Amount Sodium Chloride 0.9% 1, 850 1440 000 ml @ 120 mls/hr IV . Q8H20M [facility] Rx#:[id number] Oral 650 2080 Output: Urine 1350 1700 Other: Voiding Method Toilet Urinal Urinal Urinal # Voids 3 - Exam Head normocephalic Neck supple Lungs clear to auscultation bilaterally no wheezing or crackles Heart regular rate and rhythm S1-S2, no rub or gallop Abdomen is soft nontender nondistended positive bowel sounds no hepatosplenomegaly Extremities no edema Neuro alert and orientated to 3 - Labs CBC & Chem 7: 10/20/18 03:10 10/21/18 08:47 Labs: Abnormal Lab Results - Last 24 Hours (Table) 10/20/18 10/20/18 10/20/18 Range/Units 11:45 17:02 20:01 Sodium (137-145) mmol/L BUN (9-20) mg/dL Creatinine (0.66-1.25) mg/dL Glucose (74-99) mg/dL POC Glucose (mg/dL) 105 H 114 H 142 H (75-99) mg/dL Total Bilirubin (0.2-1.3) mg/dL AST (17-59) U/L Alkaline Phosphatase (38-126) U/L Ammonia (<30) umol/L 10/21/18 10/21/18 10/21/18 Range/Units 07:13 08:47 08:47 Sodium 136 L (137-145) mmol/L BUN 7 L (9-20) mg/dL Creatinine 0.65 L (0.66-1.25) mg/dL Glucose 144 H (74-99) mg/dL POC Glucose (mg/dL) 108 H (75-99) mg/dL Total Bilirubin 2.2 H (0.2-1.3) mg/dL AST 163 H (17-59) U/L Alkaline Phosphatase 312 H (38-126) U/L Ammonia 33 H (<30) umol/L Assessment and Plan Assessment: 1. GI bleed with hematemesis. G status post EGD findings of portal hypertensive gastropathy no evidence of varices or peptic ulcer disease. Hemogl obin remained stable at 10.3. Continue Protonix daily. Follow-up with GI services in 2-3 weeks 2. Alcohol withdrawal. CIWA protocal initiated. Continue Thiamine 3. Recent fall with severe back pain. Patient was developing orthopedic services at that time recommended TLSO brace. 4. History of COPD. No exacerbation at this time 5. History of liver cirrhosis with portal hypertension 6. History of proximal atrial fibrillation not on anticoagulation due to history of bleeding from esophageal varices 7. Elevated liver enzymes. Likely secondary to patient's liver cirrhosis 8. History of pulmonary embolism 9. Diabetes mellitus type 2. Glucose metformin currently on hold. 7 scale coverage has been ordered 10. Previous history of C. diff infection 11. Elevated lactic acid. Initial lactic acid 3.4. Patient has had issues with chronic lactic acid in the past. Repeat lactic acid 2.6. Will order repeat in 4 hours. No signs of acute infection at this time. lactic acid improving to 0.9 12. Diarrhea. C. diff stool sample ordered DVT prophylaxis SCDs. GI prophylaxis Protonix Physical therapy has been consulted I performed an examination of the patient and discussed their management with the Nurse Practitioner. I have reviewed the Nurse Practitioner's notes and agree with the documented findings and plan of care
[2018-10-21 12:02] LABS: Glucose,Whole Blood 136 mg/dL (75-99)
--- NOTE | 2018-10-21 12:40 | P.PN ---
Subjective Progress Note Date: 10/21/18 Principal diagnosis: GI bleed EtOH abuse EtOH intoxication Status post EGD findings of portal hypertensive gastropathy. No evidence of varices or peptic ulcer disease. No further bleeding. Tolerating advance diet. Afebrile. Hemoglobin stable yesterday at 10.3. No CBC today to review. Objective - Vital Signs Vital signs: Vital Signs Temp 98.6 F 10/21/18 12:17 Pulse 100 10/21/18 12:17 Resp 20 10/21/18 12:17 BP 96/59 10/21/18 12:17 Pulse Ox 97 10/21/18 12:17 Intake & Output 10/20/18 10/21/18 10/21/18 18:59 06:59 18:59 Intake Total 1500 3520 Output Total 1350 1700 Balance 150 1820 Weight 74.389 kg Intake: Intake, IV Titration 850 1440 Amount Sodium Chloride 0.9% 1, 850 1440 000 ml @ 120 mls/hr IV . Q8H20M [facility] Rx#:[id number] Oral 650 2080 Output: Urine 1350 1700 Other: Voiding Method Toilet Urinal Urinal Urinal # Voids 3 - Exam General appearance: The patient is alert, oriented, in no acute distress. HET: Head is normocephalic and atraumatic. Pupils are equal and reactive. Oropharynx is clear without lesions. Neck: Supple without lymphadenopathy. Trachea midline. Heart: S1 S2. Regular rate and rhythm. Lungs: No crackles or wheezes are heard. Abdomen: Soft, nontender, nondistended with bowel sounds. No peritoneal signs. No palpable organomegaly or masses. Extremities: Normal skin color and turgor. No cyanosis, rash, ulceration, clubbing, or edema. Radial and pedal pulses are 2/4 bilaterally. Neurological: No focal deficits. Strength and sensation are grossly intact. - Labs CBC & Chem 7: 10/20/18 03:10 10/21/18 08:47 Labs: Abnormal Lab Results - Last 24 Hours (Table) 10/20/18 10/20/18 10/21/18 Range/Units 17:02 20:01 07:13 Sodium (137-145) mmol/L BUN (9-20) mg/dL Creatinine (0.66-1.25) mg/dL Glucose (74-99) mg/dL POC Glucose (mg/dL) 114 H 142 H 108 H (75-99) mg/dL Total Bilirubin (0.2-1.3) mg/dL AST (17-59) U/L Alkaline Phosphatase (38-126) U/L Ammonia (<30) umol/L 10/21/18 10/21/18 10/21/18 Range/Units 08:47 08:47 11:59 Sodium 136 L (137-145) mmol/L BUN 7 L (9-20) mg/dL Creatinine 0.65 L (0.66-1.25) mg/dL Glucose 144 H (74-99) mg/dL POC Glucose (mg/dL) 136 H (75-99) mg/dL Total Bilirubin 2.2 H (0.2-1.3) mg/dL AST 163 H (17-59) U/L Alkaline Phosphatase 312 H (38-126) U/L Ammonia 33 H (<30) umol/L Assessment and Plan (1) Hematemesis Narrative/Plan: 63-year-old gentleman long-standing chronic alcoholism last drink 2 days ago with underlying alcohol liver disease alcohol cirrhosis presents with acute hematemesis and coffee-ground emesis with melena preceding 2 days prior. Possible peptic ulcer disease possible alcohol-induced gastritis esophagitis duodenitis possible esophageal varices possible portal hypertensive gastropathy. Current Visit: Yes Status: Acute Code(s): K92.0 - HEMATEMESIS SNOMED Code(s): 2184589 (2) ETOH abuse Current Visit: Yes Status: Acute Code(s): F10.10 - ALCOHOL ABUSE, UNCOMPLICATED SNOMED Code(s): 32136635 (3) Acute GI bleeding Current Visit: No Status: Acute Code(s): K92.2 - GASTROINTESTINAL HEMORRHAGE, UNSPECIFIED SNOMED Code(s): 93812092 (4) Alcoholic liver disease Narrative/Plan: Suspect alcohol liver cirrhosis per CT abdominal imaging one week ago. Current Visit: Yes Status: Acute Code(s): K70.9 - ALCOHOLIC LIVER DISEASE, UNSPECIFIED SNOMED Code(s): 93355071 (5) Alcoholic hepatitis without ascites Current Visit: Yes Status: Acute Code(s): K70.10 - ALCOHOLIC HEPATITIS WIT HOUT ASCITES SNOMED Code(s): 207062854 Plan: 1. Continue with PPI therapy. CBC monitoring. Discharge per medicine. Return office in 3 weeks for reevaluation. Alcohol abstinence reinforced. Assessment and plan a care discussed with Dr. Mcdowell
[2018-10-21] MEDS: SODIUM CHLORIDE 0.9% 1,000 ML IV SCH (13:08)
[2018-10-21 16:45] LABS: Glucose,Whole Blood 131 mg/dL (75-99)
[2018-10-21 20:09] LABS: Glucose,Whole Blood 140 mg/dL (75-99)
[2018-10-21] MEDS: MAGNESIUM OXIDE 400 MG TAB PO SCH (20:30)
[2018-10-22] MEDS: SODIUM CHLORIDE 0.9% 1,000 ML IV SCH ×2 (01:42→13:36)
[2018-10-22] MEDS: IBUPROFEN 400 MG TAB PO PRN ×3 (05:48→19:18)
[2018-10-22 06:56] LABS: Glucose,Whole Blood 109 mg/dL (75-99)
[2018-10-22 07:42] LABS: Anisocytosis Slight; Basophils % (A) 1 %; Eosinophils # (A) 0.1 k/uL (0-0.7); Eosinophils % (A) 1 %; HCT 34.6 % (39.0-53.0); HGB 10.7 gm/dL (13.0-17.5); Lymphocytes # (A) 0.9 k/uL (1.0-4.8); Lymphocytes % (A) 13 %; MCH 31.7 pg (25.0-35.0); MCV 102.2 fL (80.0-100.0); Macrocytosis Moderate; Mean Platelet Volume 9.2; Monocytes # (A) 0.3 k/uL (0-1.0); Monocytes % (A) 5 %; Neutrophils # (A) 5.6 k/uL (1.3-7.7); Neutrophils % (A) 79 %; Platelet Count 162 k/uL (150-450); RBC 3.38 m/uL (4.30-5.90); RDW 18.1 % (11.5-15.5); WBC 7.1 k/uL (3.8-10.6)
[2018-10-22 07:51] LABS: ALT 48 U/L (21-72); AST 137 U/L (17-59); African American GFR (CKD) >90 (>60 ml/min/1.73 sqM); Albumin 3.4 g/dL (3.5-5.0); Alkaline Phosphatase 303 U/L (38-126); Anion Gap 8 mmol/L; Blood Urea Nitrogen 11 mg/dL (9-20); Calcium 8.7 mg/dL (8.4-10.2); Carbon Dioxide 24 mmol/L (22-30); Chloride 106 mmol/L (98-107); Glucose 108 mg/dL (74-99); Potassium 4.1 mmol/L (3.5-5.1); Sodium 138 mmol/L (137-145); Total Bilirubin 2.1 mg/dL (0.2-1.3); Total Protein 6.9 g/dL (6.3-8.2)
[2018-10-22] MEDS: INSULIN ASPART (NovoLOG) 100 UNIT/ML VIAL SQ SCH ×4 (09:34→20:43)
[2018-10-22] MEDS: FERROUS SULFATE 325 MG TAB PO SCH (09:36)
[2018-10-22] MEDS: amLODIPine 5 MG TAB PO SCH ×2 (09:37→20:43)
[2018-10-22] MEDS: THIAMINE 100 MG TAB PO SCH ×2 (09:37→18:56)
[2018-10-22] MEDS: cloNIDine HCL 0.1 MG TAB PO SCH ×2 (09:37→20:43)
[2018-10-22] MEDS: SUCRALFATE 1 GM TAB PO SCH ×3 (09:37→18:55)
[2018-10-22] MEDS: PANTOPRAZOLE 40 MG/10 ML VIAL IV SCH ×2 (09:37→20:42)
[2018-10-22 11:13] LABS: Glucose,Whole Blood 117 mg/dL (75-99)
[2018-10-22] MEDS: LORazepam 2 MG/ML INJ IV PRN (14:01)
--- NOTE | 2018-10-22 15:29 | P.PN ---
Subjective Progress Note Date: 10/22/18 This is a 61-year-old male patient of Dr. Phillips. Patient presented with complaints of coffee-ground emesis. Patient has known past medical history of EtOH. Patient reports that he was drinking earlier in the day when he developed nausea and vomiting patient reports a fair amount of dark emesis. Patient denies any associated abdominal pain. Patient denies any pets patient diarrhea. Patient's additional medical history includes atrial fibrillation which she is not on anticoagulation due to previous GI bleeds, chest pain, COPD, CVA, diabetes mellitus, GERD, GI bleed, hyperlipidemia, hypertension, pneumonia, prostate disorder and pulmonary embolism. hemoglobin stable at 11.1. EKG completed showing sinus tachycardia. Serum alcohol 169. Patient's lactic acid also elevated at 3.4. Patient denies any specific acute complaints. Patient denies cough or fever. Patient denies any urinary burning or frequency. GI services have been consulted. Alcohol withdrawal protocol initiated. At this time patient denies chest pain or shortness breath. Patient denies nausea vomiting or diarrhea. Patient denies any urinary burning or frequency. On 10/20/2018 patient is alert and oriented 3. Patient still states he feels weak and a little shaky. Patient did have EGD yesterday showing findings of portal hypertensive gastropathy no evidence of varices or peptic ulcer disease. Hemoglobin remained stable. At this time patient reports he just doesn't appear ready to go home yet. Patient denies any chest pain or shortness of breath. Patient denies nausea vomiting or diarrhea. Patient denies any urinary burning or frequency On 10/21/2018 patient is alert and oriented 3. Patient reports he is feeling increased withdrawal symptoms today. Continue with alcohol withdrawal protocol. Per social work patient has appointment at [place] on 10/25/2018. This time patient denies any chest pain or shortness of breath. Patient denies nausea vomiting or diarrhea. Patient denies any signs of bleeding. Hemoglobin remains stable On 10/22/2018 patient was seen and examined on the medical floor, he is alert and oriented 3 in no apparent distress, he is still having significant tremor and some anxiety otherwise he denies any complaints there is no fever or chills no headache or dizziness no chest pain no shortness of breath no cough no nausea or vomiting no abdominal pain no diarrhea no burning was urination no frequency or urgency no hematuria Objective - Vital Signs Vital signs: Vital Signs Temp 97.9 F 10/22/18 11:32 Pulse 98 10/22/18 11:32 Resp 18 10/22/18 11:32 BP 107/69 10/22/18 11:32 Pulse Ox 98 10/22/18 11:32 Intake & Output 10/21/18 10/22/18 10/22/18 18:59 06:59 18:59 Intake Total 400 Output Total 1000 700 Balance -600 -700 Intake: Intake, IV Titration 400 Amount Sodium Chloride 0.9% 1, 400 000 ml @ 50 mls/hr IV . Q20H [facility] Rx#:[id number] Output: Urine 1000 700 Other: Voiding Method Urinal Urinal Urinal # Voids 2 - Exam In general patient is alert and oriented 3 in no apparent distress Head normocephalic and atraumatic Neck supple no JVD no goiter Lungs clear to auscultation bilaterally no wheezing or crackles Heart regular rate and rhythm S1-S2, no rub or gallop Abdomen is soft nontender nondistended positive bowel sounds no he patosplenomegaly Extremities no edema no cyanosis or clubbing Neuro tremor in hands otherwise no gross focal deficit - Labs CBC & Chem 7: 10/22/18 06:40 10/22/18 06:40 Labs: Abnormal Lab Results - Last 24 Hours (Table) 10/21/18 10/21/18 10/22/18 Range/Units 16:44 20:07 06:40 RBC (4.30-5.90) m/uL Hgb (13.0-17.5) gm/dL Hct (39.0-53.0) % MCV (80.0-100.0) fL RDW (11.5-15.5) % Lymphocytes # (1.0-4.8) k/uL Glucose 108 H (74-99) mg/dL POC Glucose (mg/dL) 131 H 140 H (75-99) mg/dL Total Bilirubin 2.1 H (0.2-1.3) mg/dL AST 137 H (17-59) U/L Alkaline Phosphatase 303 H (38-126) U/L Albumin 3.4 L (3.5-5.0) g/dL 10/22/18 10/22/18 10/22/18 Range/Units 06:40 06:53 11:12 RBC 3.38 L (4.30-5.90) m/uL Hgb 10.7 L (13.0-17.5) gm/dL Hct 34.6 L (39.0-53.0) % MCV 102.2 H (80.0-100.0) fL RDW 18.1 H (11.5-15.5) % Lymphocytes # 0.9 L (1.0-4.8) k/uL Glucose (74-99) mg/dL POC Glucose (mg/dL) 109 H 117 H (75-99) mg/dL Total Bilirubin (0.2-1.3) mg/dL AST (17-59) U/L Alkaline Phosphatase (38-126) U/L Albumin (3.5-5.0) g/dL Assessment and Plan Plan: 1. GI bleed with hematemesis. G status post EGD findings of portal hypertensive gastropathy no evidence of varices or peptic ulcer disease. Hemoglobin remained stable at 10.3. Continue Protonix daily. Follow-up with GI services in 2-3 weeks 2. Alcohol withdrawal. CIWA protocal initiated. Continue Thiamine 3. Recent fall with severe back pain. Patient was developing orthopedic services at that time recommended TLSO brace. 4. History of COPD. No exacerbation at this time 5. History of liver cirrhosis with portal hypertension 6. History of proximal atrial fibrillation not on anticoagulation due to history of bleeding from esophageal varices 7. Elevated liver enzymes. Likely secondary to patient's liver cirrhosis 8. History of pulmonary embolism 9. Diabetes mellitus type 2. Glucose metformin currently on hold. 7 scale coverage has been ordered 10. Previous history of C. diff infection 11. Elevated lactic acid. Initial lactic acid 3.4. Patient has had issues with chronic lactic acid in the past. Repeat lactic acid 2.6. Will order repeat in 4 hours. No signs of acute infection at this time. lactic acid improving to 0.9 12. Diarrhea. C. diff stool sample ordered DVT prophylaxis SCDs. GI prophylaxis Protonix Physical therapy has been consulted
[2018-10-22 16:57] LABS: Glucose,Whole Blood 92 mg/dL (75-99)
[2018-10-22 20:28] LABS: Glucose,Whole Blood 151 mg/dL (75-99)
[2018-10-22] MEDS: MAGNESIUM OXIDE 400 MG TAB PO SCH (20:43)
[2018-10-23 06:45] LABS: Anisocytosis Slight; Basophils % (A) 0 %; Eosinophils # (A) 0.1 k/uL (0-0.7); Eosinophils % (A) 1 %; HCT 33.9 % (39.0-53.0); Lymphocytes # (A) 0.9 k/uL (1.0-4.8); Lymphocytes % (A) 15 %; MCH 33.1 pg (25.0-35.0); MCHC 32.4 g/dL (31.0-37.0); MCV 102.1 fL (80.0-100.0); Macrocytosis Moderate; Mean Platelet Volume 8.7; Monocytes # (A) 0.3 k/uL (0-1.0); Monocytes % (A) 6 %; Neutrophils # (A) 4.5 k/uL (1.3-7.7); Neutrophils % (A) 77 %; Platelet Count 173 k/uL (150-450); RBC 3.32 m/uL (4.30-5.90); RDW 18.5 % (11.5-15.5); WBC 5.8 k/uL (3.8-10.6)
[2018-10-23 07:01] LABS: Glucose,Whole Blood 99 mg/dL (75-99)
[2018-10-23 07:02] LABS: ALT 49 U/L (21-72); AST 118 U/L (17-59); African American GFR (CKD) >90 (>60 ml/min/1.73 sqM); Albumin 3.5 g/dL (3.5-5.0); Alkaline Phosphatase 281 U/L (38-126); Anion Gap 8 mmol/L; Blood Urea Nitrogen 13 mg/dL (9-20); Calcium 8.8 mg/dL (8.4-10.2); Carbon Dioxide 25 mmol/L (22-30); Chloride 107 mmol/L (98-107); Glucose 104 mg/dL (74-99); Potassium 4.4 mmol/L (3.5-5.1); Sodium 140 mmol/L (137-145); Total Bilirubin 1.9 mg/dL (0.2-1.3); Total Protein 7.1 g/dL (6.3-8.2)
[2018-10-23] MEDS: INSULIN ASPART (NovoLOG) 100 UNIT/ML VIAL SQ SCH ×4 (07:16→20:38)
[2018-10-23] MEDS: THIAMINE 100 MG TAB PO SCH ×2 (07:29→17:28)
[2018-10-23] MEDS: PANTOPRAZOLE 40 MG/10 ML VIAL IV SCH ×2 (07:29→20:35)
[2018-10-23] MEDS: amLODIPine 5 MG TAB PO SCH ×2 (07:29→20:35)
[2018-10-23] MEDS: FERROUS SULFATE 325 MG TAB PO SCH (07:29)
[2018-10-23] MEDS: SUCRALFATE 1 GM TAB PO SCH ×3 (07:29→17:25)
[2018-10-23] MEDS: cloNIDine HCL 0.1 MG TAB PO SCH ×2 (07:29→20:35)
[2018-10-23] MEDS: IBUPROFEN 400 MG TAB PO PRN ×2 (08:46→17:28)
[2018-10-23 11:54] LABS: Glucose,Whole Blood 111 mg/dL (75-99)
[2018-10-23] MEDS: SODIUM CHLORIDE 0.9% 1,000 ML IV SCH (11:58)
--- NOTE | 2018-10-23 13:06 | P.PN ---
Subjective Progress Note Date: 10/23/18 This is a 61-year-old male patient of Dr. Phillips. Patient presented with complaints of coffee-ground emesis. Patient has known past medical history of EtOH. Patient reports that he was drinking earlier in the day when he developed nausea and vomiting patient reports a fair amount of dark emesis. Patient denies any associated abdominal pain. Patient denies any pets patient diarrhea. Patient's additional medical history includes atrial fibrillation which she is not on anticoagulation due to previous GI bleeds, chest pain, COPD, CVA, diabetes mellitus, GERD, GI bleed, hyperlipidemia, hypertension, pneumonia, prostate disorder and pulmonary embolism. hemoglobin stable at 11.1. EKG completed showing sinus tachycardia. Serum alcohol 169. Patient's lactic acid also elevated at 3.4. Patient denies any specific acute complaints. Patient denies cough or fever. Patient denies any urinary burning or frequency. GI services have been consulted. Alcohol withdrawal protocol initiated. At this time patient denies chest pain or shortness breath. Patient denies nausea vomiting or diarrhea. Patient denies any urinary burning or frequency. On 10/20/2018 patient is alert and oriented 3. Patient still states he feels weak and a little shaky. Patient did have EGD yesterday showing findings of portal hypertensive gastropathy no evidence of varices or peptic ulcer disease. Hemoglobin remained stable. At this time patient reports he just doesn't appear ready to go home yet. Patient denies any chest pain or shortness of breath. Patient denies nausea vomiting or diarrhea. Patient denies any urinary burning or frequency On 10/21/2018 patient is alert and oriented 3. Patient reports he is feeling increased withdrawal symptoms today. Continue with alcohol withdrawal protocol. Per social work patient has appointment at [facility] on 10/25/2018. This time patient denies any chest pain or shortness of breath. Patient denies nausea vomiting or diarrhea. Patient denies any signs of bleeding. Hemoglobin remains stable On 10/22/2018 patient was seen and examined on the medical floor, he is alert and oriented 3 in no apparent distress, he is still having significant tremor and some anxiety otherwise he denies any complaints there is no fever or chills no headache or dizziness no chest pain no shortness of breath no cough no nausea or vomiting no abdominal pain no diarrhea no burning was urination no frequency or urgency no hematuria On 10/23/2018 patient is alert and oriented in no apparent distress he is still complaining of tremor and anxiety otherwise no complaints at this time, there is no fever or chills no headache or dizziness no chest pain no shortness of breath no cough no nausea or vomiting no abdominal pain no diarrhea no burning with urination no frequency or urgency no hematuria Objective - Vital Signs Vital signs: Vital Signs Temp 98.0 F 10/23/18 05:00 Pulse 86 10/23/18 05:00 Resp 20 10/23/18 05:00 BP 118/79 10/23/18 05:00 Pulse Ox 97 10/23/18 05:00 Intake & Output 10/22/18 10/23/18 10/23/18 18:59 06:59 18:59 Intake Total 240 240 Output Total 1400 Balance -1160 240 Intake: Oral 240 240 Output: Urine 1400 Other: Voiding Method Urinal Urinal # Voids 3 1 - Exam In general patient is alert and oriented 3 in no apparent distress Head normocephalic and atraumatic Neck supple no JVD no goiter Lungs clear to auscultation bilaterally no wheezing or crackles Heart regular rate and rhythm S1-S2, no rub or gallop Abdomen is soft nontender nondistended positive bowel sounds no hepatosplenomegaly Extremities no edema no cyanosis or clubbing Neuro tremor in hands otherwise no gross focal deficit - Labs CBC & Chem 7: 10/23/18 06:16 10/23/18 06:16 Labs: Abnormal Lab Results - Last 24 Hours (Table) 10/22/18 10/22/18 10/23/18 Range/Units 11:12 20:27 06:16 RBC (4.30-5.90) m/uL Hgb (13.0-17.5) gm/dL Hct (39.0-53.0) % MCV (80.0-100.0) fL RDW (11.5-15.5) % Lymphocytes # (1.0-4.8) k/uL Glucose 104 H (74-99) mg/dL POC Glucose (mg/dL) 117 H 151 H (75-99) mg/dL Total Bilirubin 1.9 H (0.2-1.3) mg/dL AST 118 H (17-59) U/L Alkaline Phosphatase 281 H (38-126) U/L 10/23/18 Range/Units 06:16 RBC 3.32 L (4.30-5.90) m/uL Hgb 11.0 L (13.0-17.5) gm/dL Hct 33.9 L (39.0-53.0) % MCV 102.1 H (80.0-100.0) fL RDW 18.5 H (11.5-15.5) % Lymphocytes # 0.9 L (1.0-4.8) k/uL Glucose (74-99) mg/dL POC Glucose (mg/dL) (75-99) mg/dL Total Bilirubin (0.2-1.3) mg/dL AST (17-59) U/L Alkaline Phosphatase (38-126) U/L Assessment and Plan Plan: 1. GI bleed with hematemesis. G status post EGD findings of portal hypertensive gastropathy no evidence of varices or peptic ulcer disease. Hemoglobin remained stable at 10.3. Continue Protonix daily. Follow-up with GI services in 2-3 weeks 2. Alcohol withdrawal. CIWA protocal initiated. Continue Thiamine 3. Recent fall with severe back pain. Patient was developing orthopedic services at that time recommended TLSO brace. 4. History of COPD. No exacerbation at this time 5. History of liver cirrhosis with portal hypertension 6. History of proximal atrial fibrillation not on anticoagulation due to history of bleeding from esophageal varices 7. Elevated liver enzymes. Likely secondary to patient's liver cirrhosis 8. History of pulmonary embolism 9. Diabetes mellitus type 2. Glucose metformin currently on hold. 7 scale coverage has been ordered 10. Previous history of C. diff infection 11. Elevated lactic acid. Initial lactic acid 3.4. Patient has had issues with chronic lactic acid in the past. Repeat lactic acid 2.6. Will order repeat in 4 hours. No signs of acute infection at this time. lactic acid improving to 0.9 12. Diarrhea. C. diff stool sample ordered DVT prophylaxis SCDs. GI prophylaxis Protonix Physical therapy has been consulted
[2018-10-23 17:05] LABS: Glucose,Whole Blood 89 mg/dL (75-99)
[2018-10-23] MEDS: MAGNESIUM OXIDE 400 MG TAB PO SCH (20:35)
[2018-10-23 20:40] LABS: Glucose,Whole Blood 157 mg/dL (75-99)
[2018-10-24] MEDS: SODIUM CHLORIDE 0.9% 1,000 ML IV SCH (05:26)
[2018-10-24 05:40] VITALS: TEMP 97.9
[2018-10-24 07:20] LABS: Glucose,Whole Blood 109 mg/dL (75-99)
[2018-10-24] MEDS: INSULIN ASPART (NovoLOG) 100 UNIT/ML VIAL SQ SCH ×2 (07:29→11:48)
[2018-10-24] MEDS: PANTOPRAZOLE 40 MG/10 ML VIAL IV SCH (07:41)
[2018-10-24] MEDS: amLODIPine 5 MG TAB PO SCH (07:41)
[2018-10-24] MEDS: FERROUS SULFATE 325 MG TAB PO SCH (07:41)
[2018-10-24] MEDS: cloNIDine HCL 0.1 MG TAB PO SCH (07:41)
[2018-10-24] MEDS: THIAMINE 100 MG TAB PO SCH (07:41)
[2018-10-24] MEDS: SUCRALFATE 1 GM TAB PO SCH ×2 (07:41→12:59)
[2018-10-24] MEDS: IBUPROFEN 400 MG TAB PO PRN (07:49)
[2018-10-24 09:05] LABS: Anisocytosis Slight; Basophils % (A) 1 %; Eosinophils # (A) 0.1 k/uL (0-0.7); Eosinophils % (A) 2 %; HCT 36.7 % (39.0-53.0); HGB 11.5 gm/dL (13.0-17.5); Hypochromasia Slight; Lymphocytes % (A) 18 %; MCH 32.4 pg (25.0-35.0); MCHC 31.4 g/dL (31.0-37.0); Macrocytosis Moderate; Mean Platelet Volume 9.2; Monocytes # (A) 0.4 k/uL (0-1.0); Monocytes % (A) 7 %; Neutrophils # (A) 3.9 k/uL (1.3-7.7); Neutrophils % (A) 71 %; Platelet Count 216 k/uL (150-450); RBC 3.57 m/uL (4.30-5.90); RDW 18.1 % (11.5-15.5); WBC 5.5 k/uL (3.8-10.6)
[2018-10-24 11:42] LABS: Glucose,Whole Blood 81 mg/dL (75-99)
--- NOTE | 2018-10-24 13:06 | P.DS ---
Providers Date of admission: 10/21/18 09:59 Expected date of discharge: 10/24/18 Attending physician: Charlette Finney Primary care physician: Yono Phillips Hospital Course: Discharge diagnosis 1. GI bleed with hematemesis. G status post EGD findings of portal hypertensive gastropathy no evidence of varices or peptic ulcer disease. Hemoglobin remained stable at 10.3. Continue Protonix daily. Follow-up with GI services in 2-3 weeks 2. Alcohol withdrawal. CIWA protocal initiated. Continue Thiamine 3. Recent fall with severe back pain. Patient was developing orthopedic services at that time recommended TLSO brace. 4. History of COPD. No exacerbation at this time 5. History of liver cirrhosis with portal hypertension 6. History of proximal atrial fibrillation not on anticoagulation due to h istory of bleeding from esophageal varices 7. Elevated liver enzymes. Likely secondary to patient's liver cirrhosis 8. History of pulmonary embolism 9. Diabetes mellitus type 2. Glucose metformin currently on hold. sliding scale coverage has been ordered 10. Previous history of C. diff infection 11. Elevated lactic acid. Initial lactic acid 3.4. Patient has had issues with chronic lactic acid in the past. Repeat lactic acid 2.6. Will order repeat in 4 hours. No signs of acute infection at this time. lactic acid improving to 0.9 12. Diarrhea. Resolved Hospital course This is a 61-year-old male patient of Dr. Phillips. Patient presented with complaints of coffee-ground emesis. Patient has known past medical history of EtOH. Patient reports that he was drinking earlier in the day when he developed nausea and vomiting patient reports a fair amount of dark emesis. Patient denies any associated abdominal pain. Patient denies any pets patient diarrhea. Patient's additional medical history includes atrial fibrillation which she is not on anticoagulation due to previous GI bleeds, chest pain, COPD, CVA, diabetes mellitus, GERD, GI bleed, hyperlipidemia, hypertension, pneumonia, prostate disorder and pulmonary embolism. hemoglobin stable at 11.1. EKG completed showing sinus tachycardia. Serum alcohol 169. Patient's lactic acid also elevated at 3.4. Patient denies any specific acute complaints. Patient denies cough or fever. Patient denies any urinary burning or frequency. GI services have been consulted. Alcohol withdrawal protocol initiated. At this time patient denies chest pain or shortness breath. Patient denies nausea vomiting or diarrhea. Patient denies any urinary burning or frequency. On 10/20/2018 patient is alert and oriented 3. Patient still states he feels weak and a little shaky. Patient did have EGD yesterday showing findings of portal hypertensive gastropathy no evidence of varices or peptic ulcer disease. Hemoglobin remained stable. At this time patient reports he just doesn't appear ready to go home yet. Patient denies any chest pain or shortness of breath. Patient denies nausea vomiting or diarrhea. Patient denies any urinary burning or frequency On 10/21/2018 patient is alert and oriented 3. Patient reports he is feeling increased withdrawal symptoms today. Continue with alcohol withdrawal protocol. Per social work patient has appointment at [facility] on 10/25/2018. This time patient denies any chest pain or shortness of breath. Patient denies nausea vomiting or diarrhea. Patient denies any signs of bleeding. Hemoglobin remains stable On 10/22/2018 patient was seen and examined on the medical floor, he is alert and oriented 3 in no apparent distress, he is still having significant tremor and some anxiety otherwise he denies any complaints there is no fever or chills no headache or dizziness no chest pain no shortness of breath no cough no nausea or vomiting no abdominal pain no diarrhea no burning was urination no frequency or urgency no hematuria On 10/23/2018 patient is alert and oriented in no apparent distress he is still complaining of tremor and anxiety otherwise no complaints at this time, there is no fever or chills no headache or dizziness no chest pain no shortness of breath no cough no nausea or vomiting no abdominal pain no diarrhea no burning with urination no frequency or urgency no hematuria On 10/24/2018 patient's alert and oriented 3. Patient is resting comfortably in bed. No signs of alcohol withdrawal. She planning to go to [facility] for rehab upon discharge. Patient again educated the importance of stopping alcohol consumption due to continuing deteriorating health conditions. Patient did verb pool understanding. At this time patient denies chest pain or shortness breath. Patient denies nausea vomiting or diarrhea. Patient denies any urinary burning or frequency. Hemoglobin 11.5 I performed an examination of the patient and discussed their management with the Nurse Practitioner. I have reviewed the Nurse Practitioner's notes and agree with the documented findings and plan of care Patient Condition at Discharge: Stable Plan - Discharge Summary Discharge Rx Participant: No New Discharge Prescriptions: New Sucralfate [Carafate] 1 gm PO AC-TID 30 Days #90 tab Continue cloNIDine HCL [Catapres] 0.1 mg PO BID #60 tab Magnesium Oxide [Mag-Ox] 400 mg PO HS Ferrous Sulfate [Iron (65 MG Elemental)] 325 mg PO DAILY Thiamine Mononitrate (Vit B1) [Vitamin B-1] 100 mg PO DAILY Famotidine [Pepcid] 20 mg PO BID amLODIPine [Norvasc] 5 mg PO BID LORazepam [Ativan] 0.5 mg PO BID PRN 3 Days #6 tab PRN Reason: tremors metFORMIN HCL [Glucophage] 500 mg PO BID Discharge Medication List cloNIDine HCL [Catapres] 0.1 mg PO BID #60 tab 03/26/18 [Rx] Ferrous Sulfate [Iron (65 MG Elemental)] 325 mg PO DAILY 04/24/18 [History] Magnesium Oxide [Mag-Ox] 400 mg PO HS 04/24/18 [History] Thiamine Mononitrate (Vit B1) [Vitamin B-1] 100 mg PO DAILY 06/21/18 [History] Famotidine [Pepcid] 20 mg PO BID 08/23/18 [History] amLODIPine [Norvasc] 5 mg PO BID 08/25/18 [History] LORazepam [Ativan] 0.5 mg PO BID PRN 3 Days #6 tab 09/07/18 [Rx] metFORMIN HCL [Glucophage] 500 mg PO BID 10/19/18 [History] Sucralfate [Carafate] 1 gm PO AC-TID 30 Days #90 tab 10/24/18 [Rx] Follow up Appointment(s)/Referral(s): Yoon Phillips DO [Primary Care Provider] - 1-2 days Ashok Hicks MD [STAFF PHYSICIAN] - 3 Weeks Patient Instructions/Handouts: Gastrointestinal Bleeding (ED) Discharge Disposition: HOME SELF-CARE
[2018-10-24 14:24] VITALS: BP 111/73; PULSE 75; RESP 20
--- NOTE | 2018-10-26 09:19 | CDI ---
Documentation Clarification Form Date: 10-26-18 From: PEGGY Joseph Phone: If you have question, contact Elaine Corey at [phone] M-F 8:30 am to 6pm Admit Date: 10/21/2018 9:59:00 AM Patient Name: Anders Aguilar Visit Number: [id number] Discharge Date: 10/24/2018 3:57:00 PM ATTENTION: The Clinical Documentation Specialists (CDI) and [employer] Coding Staff appreciate your assistance in clarifying documentation. Please respond to the clarification below the line at the bottom and electronically sign. The CDI & [employer] Coding staff will review the response and follow-up if needed. Please note: Queries are made part of the Legal Health Record. If you have any questions, please contact the author of this message via ITS. Dr. Charlette Finney Patient is admitted with hematemesis. EGD was done on day of admission. Patient has a history of chronic alcoholic cirrhosis with portal hypertension, previous history of upper and lower GI bleeding and esophageal varices. EGD findings: LA grade D esophagitis, portal hypertensive gastropathy, and mild duodentitis. Pathology findings: chronic gastritis Discharge summary: GI bleed with hematemesis, status post EGD findings of portal hypertensive gastropathy no evidence of varices or peptic ulcer disease. Continue Protonix daily, follow-up with GI services in 2-3 weeks. In your professional opinion, can you please clarify the underlying cause of GI bleed if known? *Portal hypertension gastropathy *Esophagitis *Duodenitis *Gastritis *Other, please specify *Unable to determine GI bleed likely secondary to alcohol induced gastritis and esophagitis MTDD
== END 2018-10-24 15:57 | disposition home or self-care (01) | DRG 391 ==
LOC: EC 04:50 → 3NMEDONC 06:46 → OBSVTOIN 10-21 09:59 → 4MS4W 10-23 08:11
PROVIDERS: ADMIT Internal Medicine; ATTEND Internal Medicine
DX: K21.0 Gastro-esophageal reflux disease with esophagitis (principal); K29.21 Alcoholic gastritis with bleeding; K76.6 Portal hypertension; D62 Acute posthemorrhagic anemia; F10.239 Alcohol dependence with withdrawal, unspecified; Y90.6 Blood alcohol level of 120-199 mg/100 ml; K29.80 Duodenitis without bleeding; K31.89 Other diseases of stomach and duodenum; J44.9 Chronic obstructive pulmonary disease, unspecified; Z86.73 Personal history of transient ischemic attack (TIA), and cerebral infarction without residual deficits; E11.9 Type 2 diabetes mellitus without complications; E78.5 Hyperlipidemia, unspecified; I10 Essential (primary) hypertension; F41.9 Anxiety disorder, unspecified; F32.9 Major depressive disorder, single episode, unspecified; E55.9 Vitamin D deficiency, unspecified; H93.19 Tinnitus, unspecified ear; M41.9 Scoliosis, unspecified; E66.9 Obesity, unspecified; F10.229 Alcohol dependence with intoxication, unspecified; K70.30 Alcoholic cirrhosis of liver without ascites; I48.0 Paroxysmal atrial fibrillation; R19.7 Diarrhea, unspecified; K70.10 Alcoholic hepatitis without ascites; Z68.27 Body mass index [BMI] 27.0-27.9, adult; Z87.01 Personal history of pneumonia (recurrent); Z86.711 Personal history of pulmonary embolism; Z90.49 Acquired absence of other specified parts of digestive tract; Z86.19 Personal history of other infectious and parasitic diseases; Z85.46 Personal history of malignant neoplasm of prostate; Z92.3 Personal history of irradiation; Z79.84 Long term (current) use of oral hypoglycemic drugs; Z82.3 Family history of stroke; Z79.899 Other long term (current) drug therapy; Z91.012 Allergy to eggs; Z91.040 Latex allergy status; Z88.8 Allergy status to other drugs, medicaments and biological substances; Z91.018 Allergy to other foods; Z91.048 Other nonmedicinal substance allergy status; Z82.5 Family history of asthma and other chronic lower respiratory diseases
CPT/HCPCS: 36415; 43239; 80053; 80320; 82140; 83605; 84484; 85025; 85027; 85610; 85730; 88305; 93005; 96361; 96372; 96374; 96375; 99285

== ENCOUNTER 2018-10-31 08:51 | Emergency (ER) | payer OTHER ==
[2018-10-31 09:10] VITALS: RESP 17; TEMP 98.6
[2018-10-31] MEDS ORDERED: SODIUM CHLORIDE 0.9% 1,000 ML IV ONE (09:22)
--- NOTE | 2018-10-31 09:25 | ED ---
General Adult HPI - General Chief complaint: Alcohol Stated complaint: ETOH Time Seen by Provider: 10/31/18 08:53 Source: patient, EMS, RN notes reviewed, old records reviewed Mode of arrival: EMS Limitations: no limitations - History of Present Illness Initial comments: 61-year-old male presents for evaluation nausea and vomiting and alcohol intoxication. He admits to drinking significant amount alcohol starting at 5 AM this morning. Denies chest pain or dyspnea. He has some mild epigastric abdominal pain as well as nausea. No fever or chills. Denies any suicidal or homicidal ideation. - Related Data Home Medications Medication Instructions Recorded Confirmed Ferrous Sulfate [Iron (65 MG 325 mg PO DAILY 04/24/18 10/31/18 Elemental)] Magnesium Oxide [Mag-Ox] 400 mg PO HS 04/24/18 10/31/18 Thiamine Mononitrate (Vit B1) 100 mg PO DAILY 06/21/18 10/31/18 [Vitamin B-1] Famotidine [Pepcid] 20 mg PO BID 08/23/18 10/31/18 amLODIPine [Norvasc] 5 mg PO BID 08/25/18 10/31/18 metFORMIN HCL [Glucophage] 500 mg PO BID 10/19/18 10/31/18 Previous Rx's Medication Instructions Recorded cloNIDine HCL [Catapres] 0.1 mg PO BID #60 tab 03/26/18 LORazepam [Ativan] 0.5 mg PO BID PRN 3 Days #6 tab 09/07/18 Sucralfate [Carafate] 1 gm PO AC-TID 30 Days #90 tab 10/24/18 Allergies Allergy/AdvReac Type Severity Reaction Status Date / Time adhesive tape Allergy Rash/Hives Verified 10/31/18 09:15 latex Allergy Unknown Verified 10/31/18 09:15 egg AdvReac Nausea & Verified 10/31/18 09:15 Vomiting lisinopril AdvReac EYES Verified 10/31/18 09:15 BURN&ITCH/WEAKNESS tomato AdvReac Nausea & Verified 10/31/18 09:15 Vomiting & Diarrhea Review of Systems ROS Statement: Those systems with pertinent positive or pertinent negative responses have been documented in the HPI. ROS Other: All systems not noted in ROS Statement are negative. Past Medical History Past Medical History: Atrial Fibrillation, Cancer, Chest Pain / Angina, COPD, CVA/TIA, Diabetes Mellitus, GERD/Reflux, GI Bleed, Hyperlipidemia, Hypertension, Pneumonia, Prostate Disorder, Pulmonary Embolus (PE) Additional Past Medical History / Comment(s): tachycardia/palpitations likely d/t alcohol withdrawal. hx of Alcoholism, chronic alcoholic cirrhosis with portal hypertension and previous history of upper and lower GI bleeding, esophageal varices, previous history of childhood seizure which he outgrew not taking any antiepileptic medication-possibly had recent seizure-2018 thought d/t alcohol withdrawal, pulmonary embolism x 2 R lung, TIA, diverticulosis, chronic lower bilateral extremity ankle edema if he walks alot, previous history of septicemia, cervical disc disease with chronic back pain with r sided sciatica, degenerative arthritis involving the lower back, tinnitus, vitamin D deficiency, iron anemia, chronic thrombocytopenia, denies MRSA, C-DIFF , scoliosis, scoliosis. pt had radiation 04/28 for prostate cancer History of Any Multi-Drug Resistant Organisms: C-DIFF, MRSA Date of last positivie culture/infection: n/a MDRO Source:: STOOL Past Surgical History: Appendectomy, Cholecystectomy Additional Past Surgical History / Comment(s): EGDs/esophageal varicies bandings, colonoscopies. Past Anesthesia/Blood Transfusion Reactions: No Reported Reaction Additional Past Anesthesia/Blood Transfusion Reaction / Comment(s): after appendix removed sob Past Psychological History: Anxiety, Depression Smoking Status: Never smoker Past Alcohol Use History: Abuse, Daily Past Drug Use History: None Reported - Past Family History Mother Family Medical History: COPD, CVA/TIA, Dementia Additional Family Medical History / Comment(s): from a stroke Father Family Medical History: Pneumonia Additional Family Medical History / Comment(s): Father of pneumonia when he was close to 80 yrs old. General Exam Limitations: no limitations General appearance: alert, in no apparent distress, appears intoxicated Head exam: Present: atraumatic, normocephalic Eye exam: Present: normal appearance, PERRL ENT exam: Present: mucous membranes dry Neck exam: Present: normal inspection. Absent: tenderness Respiratory exam: Present: normal lung sounds bilaterally. Absent: respiratory distress, wheezes Cardiovascular Exam: Present: regular rate, normal rhythm GI/Abdominal exam: Present: soft. Absent: distended, tenderness, guarding Extremities exam: Present: normal inspection, normal capillary refill. Absent: pedal edema Neurological exam: Present: alert, oriented X3 Psychiatric exam: Present: normal affect, normal mood Skin exam: Present: warm, dry, intact Course Vital Signs 10/31/18 09:07 Temperature 98.6 F Pulse Rate 72 Respiratory 17 Rate Blood Pressure 150/98 O2 Sat by Pulse 96 Oximetry - Reevaluation(s) Reevaluation #1: 10/31/18 1430 Patient resting comfortably, stable vitals. He has eaten a syringe in the emergency department with no vomiting. 10/31/18 1600 Patient resting comfortably, clinically sober. Patient discharged home with outpatient follow-up. Medical Decision Making - Medical Decision Making 61-year-old male presenting with alcohol intoxication. Patient is intoxicated, alcohol level CCLXIV. He is otherwise well-appearing with stable vitals. Of some intermittent nausea. He is able to eat in the emergency department. He is observed as he does not have a ride until he is clinically sober. He is observed for 7 hours in the emergency department. He eats with no vomiting Be discharged home with outpatient follow-up. - Lab Data Result diagrams: 10/31/18 09:46 10/31/18 09:46 Lab Results 10/31/18 10/31/18 Range/Units 09:46 09:46 WBC 3.6 L (3.8-10.6) k/uL RBC 3.85 L (4.30-5.90) m/uL Hgb 11.9 L (13.0-17.5) gm/dL Hct 37.5 L (39.0-53.0) % MCV 97.4 D (80.0-100.0) fL MCH 31.0 (25.0-35.0) pg MCHC 31.9 (31.0-37.0) g/dL RDW 17.3 H (11.5-15.5) % Plt Count 154 (150-450) k/uL Neutrophils % 56 % Lymphocytes % 34 % Monocytes % 8 % Eosinophils % 1 % Basophils % 1 % Neutrophils # 2.0 (1.3-7.7) k/uL Lymphocytes # 1.2 (1.0-4.8) k/uL Monocytes # 0.3 (0-1.0) k/uL Eosinophils # 0.0 (0-0.7) k/uL Basophils # 0.0 (0-0.2) k/uL Anisocytosis Slight Macrocytosis Slight Sodium 143 (137-145) mmol/L Potassium 4.4 (3.5-5.1) mmol/L Chloride 102 (98-107) mmol/L Carbon Dioxide 28 (22-30) mmol/L Anion Gap 13 mmol/L BUN 6 L (9-20) mg/dL Creatinine 0.63 L (0.66-1.25) mg/dL Est GFR (CKD-EPI)AfAm >90 (>60 ml/min/1.73 sqM) Est GFR (CKD-EPI)NonAf >90 (>60 ml/min/1.73 sqM) Glucose 130 H (74-99) mg/dL Calcium 8.9 (8.4-10.2) mg/dL Total Bilirubin 0.7 (0.2-1.3) mg/dL AST 180 H (17-59) U/L ALT 55 (21-72) U/L Alkaline Phosphatase 321 H (38-126) U/L Total Protein 7.5 (6.3-8.2) g/dL Albumin 3.7 (3.5-5.0) g/dL Serum Alcohol 264 H* mg/dL Disposition Clinical Impression: Alcohol intoxication, ETOH abuse Disposition: HOME SELF-CARE Condition: Fair Instructions (If sedation given, give patient instructions): Alcohol Intoxication (ED) Is patient prescribed a controlled substance at d/c from ED?: No Referrals: Yoon Phillips DO [Primary Care Provider] - 1-2 days Time of Disposition: 15:23
[2018-10-31 10:19] LABS: Anisocytosis Slight; Basophils % (A) 1 %; Eosinophils % (A) 1 %; HCT 37.5 % (39.0-53.0); HGB 11.9 gm/dL (13.0-17.5); Lymphocytes # (A) 1.2 k/uL (1.0-4.8); Lymphocytes % (A) 34 %; MCHC 31.9 g/dL (31.0-37.0); MCV 97.4 fL (80.0-100.0); Macrocytosis Slight; Mean Platelet Volume 7.4; Monocytes # (A) 0.3 k/uL (0-1.0); Monocytes % (A) 8 %; Neutrophils % (A) 56 %; Platelet Count 154 k/uL (150-450); RBC 3.85 m/uL (4.30-5.90); RDW 17.3 % (11.5-15.5); WBC 3.6 k/uL (3.8-10.6)
[2018-10-31 10:24] LABS: ALT 55 U/L (21-72); AST 180 U/L (17-59); African American GFR (CKD) >90 (>60 ml/min/1.73 sqM); Albumin 3.7 g/dL (3.5-5.0); Alkaline Phosphatase 321 U/L (38-126); Anion Gap 13 mmol/L; Blood Urea Nitrogen 6 mg/dL (9-20); Calcium 8.9 mg/dL (8.4-10.2); Carbon Dioxide 28 mmol/L (22-30); Chloride 102 mmol/L (98-107); Glucose 130 mg/dL (74-99); Potassium 4.4 mmol/L (3.5-5.1); Sodium 143 mmol/L (137-145); Total Bilirubin 0.7 mg/dL (0.2-1.3); Total Protein 7.5 g/dL (6.3-8.2)
[2018-10-31 10:35] LABS: Alcohol 264 mg/dL
[2018-10-31] MEDS ORDERED: IBUPROFEN 600 MG TAB PO STA (11:30)
[2018-10-31] MEDS ORDERED: ONDANSETRON 4 MG/2 ML VIAL IVP STA ×2 (12:38→15:21)
[2018-10-31] MEDS ORDERED: SODIUM CHLORIDE 0.9% 500 ML 500 ML IV ONE (15:21)
[2018-10-31 15:51] VITALS: BP 139/90; PULSE 98
== END 2018-10-31 16:41 | disposition home or self-care (01) ==
LOC: EC 08:51
DX: F10.129 Alcohol abuse with intoxication, unspecified (principal); E11.9 Type 2 diabetes mellitus without complications; K21.9 Gastro-esophageal reflux disease without esophagitis; I10 Essential (primary) hypertension; Z79.899 Other long term (current) drug therapy; Z79.84 Long term (current) use of oral hypoglycemic drugs; Z91.040 Latex allergy status; Z91.048 Other nonmedicinal substance allergy status; Z91.012 Allergy to eggs; Z91.018 Allergy to other foods; Z88.8 Allergy status to other drugs, medicaments and biological substances; Z86.73 Personal history of transient ischemic attack (TIA), and cerebral infarction without residual deficits; Z86.711 Personal history of pulmonary embolism; Z85.46 Personal history of malignant neoplasm of prostate
CPT/HCPCS: 36415; 80053; 85025; 99284; 96374; 96376; 96361; G0480; J2405; 80320

== ENCOUNTER 2018-10-31 20:51 | Emergency (ER) | payer OTHER ==
[2018-10-31 20:59] VITALS: TEMP 98.7
[2018-10-31] MEDS ORDERED: SODIUM CHLORIDE 0.9% 500 ML 500 ML IV STA (21:08)
[2018-10-31] MEDS ORDERED: LORazepam 2 MG/ML INJ IV STA (21:08)
[2018-10-31] MEDS ORDERED: ONDANSETRON 4 MG/2 ML VIAL IVP STA (21:08)
[2018-10-31 21:27] LABS: Anisocytosis Slight; Basophils % (A) 0 %; Eosinophils % (A) 1 %; HGB 11.1 gm/dL (13.0-17.5); Lymphocytes # (A) 0.8 k/uL (1.0-4.8); Lymphocytes % (A) 14 %; MCH 31.7 pg (25.0-35.0); MCHC 32.6 g/dL (31.0-37.0); MCV 97.3 fL (80.0-100.0); Mean Platelet Volume 7.6; Monocytes # (A) 0.3 k/uL (0-1.0); Monocytes % (A) 5 %; Neutrophils # (A) 4.2 k/uL (1.3-7.7); Neutrophils % (A) 79 %; Platelet Count 149 k/uL (150-450); RBC 3.49 m/uL (4.30-5.90); RDW 16.3 % (11.5-15.5); WBC 5.4 k/uL (3.8-10.6)
--- NOTE | 2018-10-31 21:32 | ED ---
Chest Pain HPI - General Chief Complaint: Chest Pain Stated Complaint: Chest Pain Time Seen by Provider: 10/31/18 21:00 Source: patient, EMS Mode of arrival: EMS Limitations: no limitations - History of Present Illness MD Complaint: chest pain Onset/Timin -: hour(s) Onset: during rest Pain Location: substernal Pain Radiation: LUE Severity: moderate Quality: aching Consistency: constant Improves With: nothing Worsens With: nothing Anginal Symptoms: vomiting Treatments Prior to Arrival: none - Related Data Home Medications Medication Instructions Recorded Confirmed Ferrous Sulfate [Iron (65 MG 325 mg PO DAILY 04/24/18 10/31/18 Elemental)] Magnesium Oxide [Mag-Ox] 400 mg PO HS 04/24/18 10/31/18 Thiamine Mononitrate (Vit B1) 100 mg PO DAILY 06/21/18 10/31/18 [Vitamin B-1] Famotidine [Pepcid] 20 mg PO BID 08/23/18 10/31/18 amLODIPine [Norvasc] 5 mg PO BID 08/25/18 10/31/18 metFORMIN HCL [Glucophage] 500 mg PO BID 10/19/18 10/31/18 Previous Rx's Medication Instructions Recorded cloNIDine HCL [Catapres] 0.1 mg PO BID #60 tab 03/26/18 LORazepam [Ativan] 0.5 mg PO BID PRN 3 Days #6 tab 09/07/18 Sucralfate [Carafate] 1 gm PO AC-TID 30 Days #90 tab 10/24/18 Magnesium Oxide [Mag-Ox] 400 mg PO DAILY #20 tablet 11/01/18 chlordiazePOXIDE HCl [Librium] 25 mg PO QID 3 Days #12 capsule 11/01/18 Allergies Allergy/AdvReac Type Severity Reaction Status Date / Time adhesive tape Allergy Rash/Hives Verified 10/31/18 21:10 latex Allergy Unknown Verified 10/31/18 21:10 egg AdvReac Nausea & Verified 10/31/18 21:10 Vomiting lisinopril AdvReac EYES Verified 10/31/18 21:10 BURN&ITCH/WEAKNESS tomato AdvReac Nausea & Verified 10/31/18 21:10 Vomiting & Diarrhea Review of Systems ROS Statement: Those systems with pertinent positive or pertinent negative responses have been documented in the HPI. ROS Other: All systems not noted in ROS Statement are negative. Constitutional: Denies: fever, chills Respiratory: Denies: cough, dyspnea Cardiovascular: Reports: chest pain. Denies: palpitations, orthopnea, edema Gastrointestinal: Reports: nausea, vomiting, hematemesis (Coffee-ground). Denies: abdominal pain, diarrhea, constipation, melena, hematochezia Genitourinary: Denies: dysuria, hematuria Musculoskeletal: Denies: back pain Skin: Denies: rash Neurological: Denies: headache, weakness, numbness Hematological/Lymphatic: Denies: easy bleeding EKG Findings - EKG Results: EKG: interpreted by ERMD, sinus rhythm (With PVC, Rate 129 bpm), normal axis EKG shows: tachycardia - Blocks, [place], Hypertrophy, ST Abn: Chamber hypertrophy or enlargement: only voltage criteria for left ventricular hypertrophy Repolarization changes or abnormalities: nonspecific abnormality, ST segment, and/or T wave Past Medical History Past Medical History: Atrial Fibrillation, Cancer, Chest Pain / Angina, COPD, CVA/TIA, Diabetes Mellitus, GERD/Reflux, GI Bleed, Hyperlipidemia, Hypertension, Pneumonia, Prostate Disorder, Pulmonary Embolus (PE) Additional Past Medical History / Comment(s): tachycardia/palpitations likely d/t alcohol withdrawal. hx of Alcoholism, chronic alcoholic cirrhosis with portal hypertension and previous history of upper and lower GI bleeding, esophageal varices, previous history of childhood seizure which he outgrew not taking any antiepileptic medication-possibly had recent seizure-2018 thought d/t alcohol withdrawal, pulmonary embolism x 2 R lung, TIA, diverticulosis, chronic lower bilateral extremity ankle edema if he walks alot, previous history of septicemia, cervical disc disease with chronic back pain with r sided sciatica, degenerative arthritis involving the lower back, tinnitus, vitamin D deficiency, iron anemia, chronic thrombocytopenia, denies MRSA, C-DIFF -2018, scoliosis, scoliosis. pt had radiation 04/28 for prostate cancer History of Any Multi-Drug Resistant Organisms: C-DIFF, MRSA Date of last positivie culture/infection: n/a MDRO Source:: STOOL Past Surgical History: Appendectomy, Cholecystectomy Additional Past Surgical History / Comment(s): EGDs/esophageal varicies bandings, colonoscopies. Past Anesthesia/Blood Transfusion Reactions: No Reported Reaction Additional Past Anesthesia/Blood Transfusion Reaction / Comment(s): after append ix removed sob Past Psychological History: Anxiety, Depression Smoking Status: Never smoker Past Alcohol Use History: Abuse, Daily Past Drug Use History: None Reported - Past Family History Mother Family Medical History: COPD, CVA/TIA, Dementia Additional Family Medical History / Comment(s): from a stroke Father Family Medical History: Pneumonia Additional Family Medical History / Comment(s): Father of pneumonia when he was close to 80 yrs old. General Exam Limitations: no limitations General appearance: alert, in no apparent distress Head exam: Present: atraumatic, normocephalic Eye exam: Present: normal appearance. Absent: scleral icterus, conjunctival injection ENT exam: Present: normal oropharynx Respiratory exam: Present: normal lung sounds bilaterally. Absent: respiratory distress, wheezes, rales, rhonchi, stridor Cardiovascular Exam: Present: tachycardia, normal heart sounds. Absent: systolic murmur, diastolic murmur, rubs, gallop GI/Abdominal exam: Present: soft. Absent: distended, tenderness, guarding, rebound, rigid, mass Extremities exam: Present: normal inspection, normal capillary refill. Absent: pedal edema, calf tenderness Back exam: Present: normal inspection. Absent: CVA tenderness (R), CVA tenderness (L) Neurological exam: Present: alert Skin exam: Present: warm, dry, intact, normal color. Absent: rash Course Vital Signs 10/31/18 10/31/18 10/31/18 20:56 21:00 21:30 Temperature 98.7 F Pulse Rate 131 H 129 H 125 H Respiratory 24 11 L 12 Rate Blood Pressure 129/90 129/90 132/89 O2 Sat by Pulse 97 97 100 Oximetry 10/31/18 10/31/18 10/31/18 22:00 22:30 22:46 Temperature Pulse Rate 116 H 114 H 114 H Respiratory 18 16 16 Rate Blood Pressure 147/90 130/93 141/86 O2 Sat by Pulse 97 97 96 Oximetry 10/31/18 10/31/18 11/01/18 23:00 23:30 00:00 Temperature Pulse Rate 113 H 113 H 115 H Respiratory 16 16 16 Rate Blood Pressure 141/86 141/93 156/100 O2 Sat by Pulse 97 96 95 Oximetry 11/01/18 11/01/18 11/01/18 00:30 03:11 03:45 Temperature Pulse Rate 113 H 117 H 111 H Respiratory 18 18 18 Rate Blood Pressure 139/86 148/89 141/94 O2 Sat by Pulse 96 96 96 Oximetry 11/01/18 11/01/18 11/01/18 05:00 06:00 07:02 Temperature Pulse Rate 110 H 110 H 113 H Respiratory 18 18 18 Rate Blood Pressure 137/92 149/102 150/96 O2 Sat by Pulse 97 98 97 Oximetry Disposition Clinical Impression: ETOH abuse, Hypomagnesemia Disposition: HOME SELF-CARE Condition: Fair Instructions (If sedation given, give patient instructions): Abuse of Alcohol (ED), Hypomagnesemia (ED) Prescriptions: chlordiazePOXIDE HCl [Librium] 25 mg PO QID 3 Days #12 capsule Magnesium Oxide [Mag-Ox] 400 mg PO DAILY #20 tablet Is patient prescribed a controlled substance at d/c from ED?: No Referrals: Yoon Phillips DO [Primary Care Provider] - 1-2 days
[2018-10-31 21:36] LABS: ALT 56 U/L (21-72); AST 158 U/L (17-59); African American GFR (CKD) >90 (>60 ml/min/1.73 sqM); Albumin 3.4 g/dL (3.5-5.0); Alkaline Phosphatase 300 U/L (38-126); Amylase 81 U/L (30-110); Anion Gap 9 mmol/L; Blood Urea Nitrogen 9 mg/dL (9-20); Calcium 8.2 mg/dL (8.4-10.2); Carbon Dioxide 28 mmol/L (22-30); Chloride 100 mmol/L (98-107); Glucose 153 mg/dL (74-99); Lipase 101 U/L (23-300); Potassium 3.7 mmol/L (3.5-5.1); Sodium 137 mmol/L (137-145); Total Protein 7.1 g/dL (6.3-8.2)
[2018-10-31 21:42] LABS: Magnesium 0.9 mg/dL (1.6-2.3)
--- NOTE | 2018-10-31 21:48 | XR ---
EXAMINATION TYPE: XR chest 1V portable DATE OF EXAM: 10/31/2018 COMPARISON: 10/08/2018 HISTORY: Chest pain TECHNIQUE: Single frontal view of the chest is obtained. FINDINGS: Heart is normal. Lungs are clear of consolidation. There is some coarsening of lung markin gs left lower lobe. There are chest leads. There is no pleural effusion. There is no heart failure. IMPRESSION: Only fibrotic changes. No definite acute lung disease. Inspiration decreased slightly co mpared to last exam.
[2018-10-31 21:55] LABS: INR 1.3 (<1.2); Partial Thromboplastin Time 26.3 sec (22.0-30.0); Prothrombin Time 13.1 sec (9.0-12.0)
[2018-10-31] MEDS ORDERED: SODIUM CHLORIDE 0.9% 1,000 ML IV ONE (22:15)
[2018-10-31] MEDS: MAGNESIUM SULFATE-D5W PMX 1 GM in DEXTROSE/WATER 1 100ML.BAG IVPB SCH ×2 (22:38→23:47)
[2018-11-01 00:58] VITALS: RESP 18
[2018-11-01] MEDS ORDERED: LORazepam 2 MG/ML INJ IV STA ×2 (03:14→07:12)
[2018-11-01] MEDS ORDERED: chlordiazePOXIDE 25 MG CAP PO STA (07:11)
[2018-11-01 09:30] VITALS: BP 147/94; PULSE 108
== END 2018-11-01 10:02 | disposition home or self-care (01) ==
LOC: EC 20:51
DX: F10.10 Alcohol abuse, uncomplicated (principal); E83.42 Hypomagnesemia; I48.91 Unspecified atrial fibrillation; J44.9 Chronic obstructive pulmonary disease, unspecified; E11.9 Type 2 diabetes mellitus without complications; K21.9 Gastro-esophageal reflux disease without esophagitis; I10 Essential (primary) hypertension; Z86.711 Personal history of pulmonary embolism; Z85.46 Personal history of malignant neoplasm of prostate; Z86.14 Personal history of Methicillin resistant Staphylococcus aureus infection; F32.9 Major depressive disorder, single episode, unspecified; F41.9 Anxiety disorder, unspecified; Z79.84 Long term (current) use of oral hypoglycemic drugs; Z79.899 Other long term (current) drug therapy; Z88.8 Allergy status to other drugs, medicaments and biological substances; Z91.040 Latex allergy status; Z91.048 Other nonmedicinal substance allergy status; Z91.018 Allergy to other foods
CPT/HCPCS: 36415 ×2; 93005; 86900; 86901; 80053; 82150; 83690; 83735; 84484 ×2; 85025; 85610; 85730; 86850; 71045; 99285; 96365; 96366; 96375 ×2; 96376 ×2; 96361; G0480; J2060 ×2; J2405; J3475; 80320

== ENCOUNTER 2018-11-01 16:13 | Observation (INO) | payer OTHER ==
[2018-11-01] MEDS ORDERED: SODIUM CHLORIDE 0.9% 500 ML 500 ML IV STA (16:57)
[2018-11-01] MEDS ORDERED: PANTOPRAZOLE 40 MG/10 ML VIAL IVP STA (16:57)
[2018-11-01] MEDS ORDERED: ONDANSETRON 4 MG/2 ML VIAL IVP STA (16:57)
[2018-11-01] MEDS ORDERED: THIAMINE 100 MG/ML 2 ML VIAL IM STA (16:57)
[2018-11-01] MEDS ORDERED: SODIUM CHLORIDE 0.9% 1,000 ML IV STA ×2 (16:57)
[2018-11-01] MEDS ORDERED: LORazepam 2 MG/ML INJ IV PRN ×3 (16:57)
[2018-11-01 17:20] LABS: Anisocytosis Slight; Basophils % (A) 0 %; Eosinophils # (A) 0.1 k/uL (0-0.7); Eosinophils % (A) 1 %; Lymphocytes # (A) 1.2 k/uL (1.0-4.8); Lymphocytes % (A) 16 %; MCH 32.2 pg (25.0-35.0); MCHC 32.4 g/dL (31.0-37.0); MCV 99.2 fL (80.0-100.0); Macrocytosis Slight; Mean Platelet Volume 8.2; Monocytes # (A) 0.3 k/uL (0-1.0); Monocytes % (A) 5 %; Neutrophils # (A) 5.8 k/uL (1.3-7.7); Neutrophils % (A) 78 %; Platelet Count 136 k/uL (150-450); RBC 3.42 m/uL (4.30-5.90); RDW 16.5 % (11.5-15.5); WBC 7.4 k/uL (3.8-10.6)
[2018-11-01 17:32] LABS: ALT 42 U/L (21-72); AST 129 U/L (17-59); African American GFR (CKD) >90 (>60 ml/min/1.73 sqM); Albumin 3.4 g/dL (3.5-5.0); Alkaline Phosphatase 259 U/L (38-126); Anion Gap 12 mmol/L; Blood Urea Nitrogen 16 mg/dL (9-20); Calcium 8.6 mg/dL (8.4-10.2); Carbon Dioxide 24 mmol/L (22-30); Chloride 100 mmol/L (98-107); Creatine Kinase 126 U/L (55-170); Glucose 108 mg/dL (74-99); Lipase 129 U/L (23-300); Magnesium 1.5 mg/dL (1.6-2.3); Potassium 3.5 mmol/L (3.5-5.1); Sodium 136 mmol/L (137-145); Total Bilirubin 1.3 mg/dL (0.2-1.3)
[2018-11-01 17:39] LABS: INR 1.3 (<1.2); Partial Thromboplastin Time 26.8 sec (22.0-30.0); Prothrombin Time 13.6 sec (9.0-12.0)
--- NOTE | 2018-11-01 18:01 | ED ---
GI Bleed HPI - General Chief complaint: GI Bleed Stated complaint: Hematemesis Time Seen by Provider: 11/01/18 16:27 Source: patient, RN notes reviewed, old records reviewed Mode of arrival: EMS Limitations: no limitations - History of Present Illness Initial comments: This is a 73-year-old male the ER for evaluation. Patient resents today for evaluation of weakness nausea vomiting. Vomiting blood vomiting darkness dark stool dark type material. Patient does admit to drinking today. Patient has to hospital visits to ER visits for last 2 days. It is his third. Patient does not feel well and vomiting of blood when he went home after second discharge. No significant abdominal pain currently he does have active vomiting MD complaint: coffee ground emesis -: hour(s) Radiation: none Severity scale (1-10): 3 Quality: painless Consistency: constant Improves with: none Worsens with: none Context: history of GI bleed, liver disease Associated Symptoms: nausea, vomiting, loss of appetite, weakness Treatments Prior to Arrival: none - Related Data Home Medications Medication Instructions Recorded Confirmed Ferrous Sulfate [Iron (65 MG 325 mg PO DAILY 04/24/18 11/01/18 Elemental)] Magnesium Oxide [Mag-Ox] 400 mg PO HS 04/24/18 11/01/18 Thiamine Mononitrate (Vit B1) 100 mg PO DAILY 06/21/18 11/01/18 [Vitamin B-1] Famotidine [Pepcid] 20 mg PO BID 08/23/18 11/01/18 amLODIPine [Norvasc] 5 mg PO BID 08/25/18 11/01/18 metFORMIN HCL [Glucophage] 500 mg PO BID 10/19/18 11/01/18 Previous Rx's Medication Instructions Recorded cloNIDine HCL [Catapres] 0.1 mg PO BID #60 tab 03/26/18 LORazepam [Ativan] 0.5 mg PO BID PRN 3 Days #6 tab 09/07/18 Sucralfate [Carafate] 1 gm PO AC-TID 30 Days #90 tab 10/24/18 Magnesium Oxide [Mag-Ox] 400 mg PO DAILY #20 tablet 11/01/18 chlordiazePOXIDE HCl [Librium] 25 mg PO QID 3 Days #12 capsule 11/01/18 Allergies Allergy/AdvReac Type Severity Reaction Status Date / Time adhesive tape Allergy Rash/Hives Verified 11/01/18 16:23 latex Allergy Unknown Verified 11/01/18 16:23 egg AdvReac Nausea & Verified 11/01/18 16:23 Vomiting lisinopril AdvReac EYES Verified 11/01/18 16:23 BURN&ITCH/WEAKNESS tomato AdvReac Nausea & Verified 11/01/18 16:23 Vomiting & Diarrhea Review of Systems ROS Statement: Those systems with pertinent positive or pertinent negative responses have been documented in the HPI. ROS Other: All systems not noted in ROS Statement are negative. Past Medical History Past Medical History: Atrial Fibrillation, Cancer, Chest Pain / Angina, COPD, CVA/TIA, Diabetes Mellitus, GERD/Reflux, GI Bleed, Hyperlipidemia, Hypertension, Pneumonia, Prostate Disorder, Pulmonary Embolus (PE) Additional Past Medical History / Comment(s): tachycardia/palpitations likely d/t alcohol withdrawal. hx of Alcoholism, chronic alcoholic cirrhosis with portal hypertension and previous history of upper and lower GI bleeding, esophageal varices, previous history of childhood seizure which he outgrew not taking any antiepileptic medication-possibly had recent seizure-2018 thought d/t alcohol withdrawal, pulmonary embolism x 2 R lung, TIA, diverticulosis, chronic lower bilateral extremity ankle edema if he walks alot, previous history of septicemia, cervical disc disease with chronic back pain with r sided sciatica, degenerative arthritis involving the lower back, tinnitus, vitamin D deficiency, iron anemia, chronic thrombocytopenia, denies MRSA, C-DIFF , scoliosis, scoliosis. pt had radiation 04/28 for prostate cancer History of Any Multi-Drug Resistant Organisms: C-DIFF, MRSA Date of last positivie culture/infection: n/a MDRO Source:: STOOL Past Surgical History: Appendectomy, Cholecystectomy Additional Past Surgical History / Comment(s): EGDs/esophageal varicies bandings, colonoscopies. Past Anesthesia/Blood Transfusion Reactions: No Reported Reaction Additional Past Anesthesia/Blood Transfusion Reaction / Comment(s): after andreas endix removed sob Past Psychological History: Anxiety, Depression Smoking Status: Never smoker Past Alcohol Use History: Abuse, Daily Past Drug Use History: None Reported - Past Family History Mother Family Medical History: COPD, CVA/TIA, Dementia Additional Family Medical History / Comment(s): from a stroke Father Family Medical History: Pneumonia Additional Family Medical History / Comment(s): Father of pneumonia when he was close to 80 yrs old. General Exam - General Exam Comments Initial Comments: vomiting coffee ground emesis Limitations: no limitations General appearance: alert, in no apparent distress Head exam: Present: atraumatic, normocephalic, normal inspection Eye exam: Present: normal appearance, PERRL, EOMI. Absent: scleral icterus, conjunctival injection, periorbital swelling ENT exam: Present: normal exam, mucous membranes moist Neck exam: Present: normal inspection. Absent: tenderness, meningismus, lymphadenopathy Respiratory exam: Present: normal lung sounds bilaterally. Absent: respiratory distress, wheezes, rales, rhonchi, stridor Cardiovascular Exam: Present: normal rhythm, tachycardia, normal heart sounds. Absent: systolic murmur, diastolic murmur, rubs, gallop, clicks GI/Abdominal exam: Present: soft, normal bowel sounds. Absent: distended, tenderness, guarding, rebound, rigid Extremities exam: Present: normal inspection, full ROM, normal capillary refill. Absent: tenderness, pedal edema, joint swelling, calf tenderness Back exam: Present: normal inspection Neurological exam: Present: alert, oriented X3, CN II-XII intact Psychiatric exam: Present: normal affect, normal mood Skin exam: Present: warm, dry, intact, normal color. Absent: rash Course Vital Signs 11/01/18 11/01/18 11/01/18 16:22 16:30 17:00 Temperature 98.2 F Pulse Rate 122 H Respiratory 16 18 Rate Blood Pressure 96/72 96/72 96/72 O2 Sat by Pulse 97 93 L 98 Oximetry 11/01/18 11/01/18 11/01/18 17:30 17:43 18:00 Temperature Pulse Rate 115 H 116 H 114 H Respiratory 17 16 20 Rate Blood Pressure 96/72 111/65 105/69 O2 Sat by Pulse 98 97 97 Oximetry - Reevaluation(s) Reevaluation #1: 11/01/18 18:33 medical record is reviewed, multiple recent ED visirts Reevaluation #2: 11/01/18 18:33 Patient is actively vomiting coffee-ground emesis here in the ER Medical Decision Making - Medical Decision Making 53 male the ER for evaluation nausea vomiting, patient's upper GI bleed history of alcoholism concern for variceal bleed. Patient will be admitted for continued management of nausea and vomiting. Hematemesis - Lab Data Result diagrams: 11/01/18 17:05 11/01/18 17:05 Lab Results 11/01/18 11/01/18 11/01/18 Range/Units 17:05 17:05 17:05 WBC 7.4 (3.8-10.6) k/uL RBC 3.42 L (4.30-5.90) m/uL Hgb 11.0 L (13.0-17.5) gm/dL Hct 34.0 L (39.0-53.0) % MCV 99.2 (80.0-100.0) fL MCH 32.2 (25.0-35.0) pg MCHC 32.4 (31.0-37.0) g/dL RDW 16.5 H (11.5-15.5) % Plt Count 136 L (150-450) k/uL Neutrophils % 78 % Lymphocytes % 16 % Monocytes % 5 % Eosinophils % 1 % Basophils % 0 % Neutrophils # 5.8 (1.3-7.7) k/uL Lymphocytes # 1.2 (1.0-4.8) k/uL Monocytes # 0.3 (0-1.0) k/uL Eosinophils # 0.1 (0-0.7) k/uL Basophils # 0.0 (0-0.2) k/uL Anisocytosis Slight Macrocytosis Slight PT (9.0-12.0) sec INR (<1.2) APTT (22.0-30.0) sec Sodium 136 L (137-145) mmol/L Potassium 3.5 (3.5-5.1) mmol/L Chloride 100 (98-107) mmol/L Carbon Dioxide 24 (22-30) mmol/L Anion Gap 12 mmol/L BUN 16 (9-20) mg/dL Creatinine 0.88 (0.66-1.25) mg/dL Est GFR (CKD-EPI)AfAm >90 (>60 ml/min/1.73 sqM) Est GFR (CKD-EPI)NonAf >90 (>60 ml/min/1.73 sqM) Glucose 108 H (74-99) mg/dL Calcium 8.6 (8.4-10.2) mg/dL Magnesium 1.5 L (1.6-2.3) mg/dL Total Bilirubin 1.3 (0.2-1.3) mg/dL AST 129 H (17-59) U/L ALT 42 (21-72) U/L Alkaline Phosphatase 259 H (38-126) U/L Ammonia 48 H (<30) umol/L Creatine Kinase 126 (55-170) U/L Troponin I (0.000-0.034) ng/mL Total Protein 7.0 (6.3-8.2) g/dL Albumin 3.4 L (3.5-5.0) g/dL Lipase 129 (23-300) U/L 11/01/18 11/01/18 Range/Units 17:05 17:05 WBC (3.8-10.6) k/uL RBC (4.30-5.90) m/uL Hgb (13.0-17.5) gm/dL Hct (39.0-53.0) % MCV (80.0-100.0) fL MCH (25.0-35.0) pg MCHC (31.0-37.0) g/dL RDW (11.5-15.5) % Plt Count (150-450) k/uL Neutrophils % % Lymphocytes % % Monocytes % % Eosinophils % % Basophils % % Neutrophils # (1.3-7.7) k/uL Lymphocytes # (1.0-4.8) k/uL Monocytes # (0-1.0) k/uL Eosinophils # (0-0.7) k/uL Basophils # (0-0.2) k/uL Anisocytosis Macrocytosis PT 13.6 H (9.0-12.0) sec INR 1.3 H (<1.2) APTT 26.8 (22.0-30.0) sec Sodium (137-145) mmol/L Potassium (3.5-5.1) mmol/L Chloride (98-107) mmol/L Carbon Dioxide (22-30) mmol/L Anion Gap mmol/L BUN (9-20) mg/dL Creatinine (0.66-1.25) mg/dL Est GFR (CKD-EPI)AfAm (>60 ml/min/1.73 sqM) Est GFR (CKD-EPI)NonAf (>60 ml/min/1.73 sqM) Glucose (74-99) mg/dL Calcium (8.4-10.2) mg/dL Magnesium (1.6-2.3) mg/dL Total Bilirubin (0.2-1.3) mg/dL AST (17-59) U/L ALT (21-72) U/L Alkaline Phosphatase (38-126) U/L Ammonia (<30) umol/L Creatine Kinase (55-170) U/L Troponin I <0.012 (0.000-0.034) ng/mL Total Protein (6.3-8.2) g/dL Albumin (3.5-5.0) g/dL Lipase (23-300) U/L Disposition Clinical Impression: GI bleed, ETOH abuse, Dehydration, Anemia Disposition: ADMITTED IP TO THIS HOSP Condition: Fair Is patient prescribed a controlled substance at d/c from ED?: No Referrals: Yoon Phillips DO [Primary Care Provider] - 1-2 days
[2018-11-01] MEDS ORDERED: ONDANSETRON 4 MG/2 ML VIAL IVP PRN (18:32)
[2018-11-01] MEDS ORDERED: MORPHINE SULFATE 4 MG/ML SYRINGE IVP STA (18:56)
[2018-11-01] MEDS ORDERED: MORPHINE SULFATE 4 MG/ML SYRINGE IVP PRN (18:56)
[2018-11-01 20:25] LABS: Glucose,Whole Blood 93 mg/dL (75-99)
[2018-11-01] MEDS: cloNIDine HCL 0.1 MG TAB PO SCH (22:19)
[2018-11-01] MEDS: PANTOPRAZOLE 40 MG/10 ML VIAL IVP SCH (22:19)
[2018-11-01] MEDS: amLODIPine 5 MG TAB PO SCH (22:19)
[2018-11-01 23:59] LABS: Anisocytosis Slight; Basophils % (A) 0 %; Eosinophils # (A) 0.1 k/uL (0-0.7); Eosinophils % (A) 1 %; HCT 29.6 % (39.0-53.0); Hypochromasia Slight; Lymphocytes # (A) 1.5 k/uL (1.0-4.8); Lymphocytes % (A) 31 %; MCH 32.1 pg (25.0-35.0); MCHC 31.6 g/dL (31.0-37.0); MCV 101.6 fL (80.0-100.0); Macrocytosis Slight; Mean Platelet Volume 8.4; Monocytes # (A) 0.2 k/uL (0-1.0); Monocytes % (A) 4 %; Neutrophils % (A) 62 %; Platelet Count 119 k/uL (150-450); RBC 2.92 m/uL (4.30-5.90); RDW 16.8 % (11.5-15.5); WBC 4.8 k/uL (3.8-10.6)
[2018-11-02 00:17] LABS: Glucose,Whole Blood 99 mg/dL (75-99)
[2018-11-02 00:23] LABS: HGB 9.4 gm/dL (13.0-17.5)
[2018-11-02] MEDS: INSULIN ASPART (NovoLOG) 100 UNIT/ML VIAL SQ SCH ×4 (00:23→17:55)
[2018-11-02 05:39] LABS: Glucose,Whole Blood 84 mg/dL (75-99)
[2018-11-02] MEDS: PANTOPRAZOLE 40 MG/10 ML VIAL IVP SCH ×2 (08:06→22:09)
[2018-11-02] MEDS: THIAMINE 100 MG TAB PO SCH ×2 (08:07→17:08)
[2018-11-02] MEDS: amLODIPine 5 MG TAB PO SCH ×2 (08:07→22:09)
[2018-11-02] MEDS: cloNIDine HCL 0.1 MG TAB PO SCH ×2 (08:07→22:09)
[2018-11-02] MEDS: MAGNESIUM OXIDE 400 MG TAB PO SCH ×2 (08:36→22:09)
[2018-11-02] MEDS: FERROUS SULFATE 325 MG TAB PO SCH (08:36)
[2018-11-02] MEDS ORDERED: chlordiazePOXIDE 25 MG CAP PO SCH (09:00)
[2018-11-02] MEDS ORDERED: FAMOTIDINE 20 MG TAB PO SCH (09:00)
--- NOTE | 2018-11-02 09:06 | P.CONS ---
History of Present Illness - Reason for Consult Consult date: 11/02/18 GI bleeding Requesting physician: Charlette Finney - Chief Complaint Hematemesis - History of Present Illness 63-year-old male history of chronic alcoholism admitted with acute hematemesis after drinking tequila. Patient was hospitalized 10 days ago for an acute upper GI bleed alcohol intoxication hematemesis and underwent EGD evaluation on 10/19/2018 with findings of LA grade D esophagitis portal hypertensive gastropathy and mild duodenitis. No esophageal varices were seen. Admission hemoglobin 11 presently 9.4. MCV 101. Platelet 119. INR 1.3. BUN 16. Creatinine 0.8. Review of Systems Constitutional: Denies fever, chills, sweats, weight gain, or loss. HEENT: Negative for migraines, blurred vision or loss, earaches, drainage, tinnitus, oral mucosal lesions, dysphagia, or odynophagia. Cardiac: Negative for chest pain, arrhythmias, or palpitation. Respiratory: Negative for shortness of breath, hemoptysis, cough, or sputum production. Gastrointestinal: See HPI for pertinent findings. Genitourinary: Negative for hematuria, urgency, frequency, polyuria, dysuria, or penile discharge. Musculoskeletal: Negative for muscle aches, swelling, arthritis, and arthralgias. Neurologic: Negative for stroke or TIA. Endocrine: Negative for thyroid problems. Skin: Negative for rash or itching. Psychiatric: Negative history for depression and anxiety Past Medical History Past Medical History: Atrial Fibrillation, Cancer, Chest Pain / Angina, COPD, CVA/TIA, Diabetes Mellitus, GERD/Reflux, GI Bleed, Hyperlipidemia, Hypertension, Pneumonia, Prostate Disorder, Pulmonary Embolus (PE) Additional Past Medical History / Comment(s): tachycardia/palpitations likely d/t alcohol withdrawal. hx of Alcoholism, chronic alcoholic cirrhosis with portal hypertension and previous history of upper and lower GI bleeding, esophageal varices, previous history of childhood seizure which he outgrew not taking any antiepileptic medication-possibly had recent seizure-2017 thought d/t alcohol withdrawal, pulmonary embolism x 2 R lung, TIA, diverticulosis, chronic lower bilateral extremity ankle edema if he walks alot, previous history of septicemia, cervical disc disease with chronic back pain with r sided sciatica, degenerative arthritis involving the lower back, tinnitus, vitamin D deficiency, iron anemia, chronic thrombocytopenia, denies MRSA, C-DIFF , scoliosis, scoliosis. pt had radiation 04/28 for prostate cancer History of Any Multi-Drug Resistant Organisms: C-DIFF, MRSA Year Discovered:: n/a MDRO Source:: STOOL Past Surgical History: Appendectomy, Cholecystectomy Additional Past Surgical History / Comment(s): EGDs/esophageal varicies bandings, colonoscopies. Past Anesthesia/Blood Transfusion Reactions: No Reported Reaction Additional Past Anesthesia/Blood Transfusion Reaction / Comm: after appendix removed sob Past Psychological History: Anxiety, Depression Additional Psychological History / Comment(s): Pt lives in an apartment alone. Apartment complex has front door ramp and has an elevator. no pets. Sometimes his sister stays with him and cleans his home. He uses a cane to ambulate at times. He drives but currently has no car. He gets to [facility] by [employer] [facility]. He has a nebulizer and a glucometer.pt stated he was getting [facility] home care nurse but has'nt seen them in few days,not sure if they're still coming. Used to work in [employer]. Relates that he's not been a smoker. Denies recreational drug use. His left him many years ago he has adult children that he does not see very often. No experience. No travel history. No animal exposures Smoking Status: Never smoker Past Alcohol Use History: Abuse, Daily Additional Past Alcohol Use History / Comment(s): pt reports normally drinks 2 fifths per week. 10/08 admission drank 1 fifth prior to admission. Last drink 10/31/18 Past Drug Use History: None Reported - Past Family History Mother Family Medical History: COPD, CVA/TIA, Dementia Additional Family Medical History / Comment(s): from a stroke Father Family Medical History: Pneumonia Additional Family Medical History / Comment(s): Father of pneumonia when he was close to 80 yrs old. Medications and Allergies Home Medications Medication Instructions Recorded Confirmed Type cloNIDine HCL [Catapres] 0.1 mg PO BID #60 tab 03/26/18 11/01/18 Rx Ferrous Sulfate [Iron (65 MG 325 mg PO DAILY 04/24/18 11/01/18 History Elemental)] Magnesium Oxide [Mag-Ox] 400 mg PO HS 04/24/18 11/01/18 History Thiamine Mononitrate (Vit B1) 100 mg PO DAILY 06/21/18 11/01/18 History [Vitamin B-1] Famotidine [Pepcid] 20 mg PO BID 08/23/18 11/01/18 History amLODIPine [Norvasc] 5 mg PO BID 08/25/18 11/01/18 History LORazepam [Ativan] 0.5 mg PO BID PRN 3 Days #6 tab 09/07/18 11/01/18 Rx metFORMIN HCL [Glucophage] 500 mg PO BID 10/19/18 11/01/18 History Sucralfate [Carafate] 1 gm PO AC-TID 30 Days #90 tab 10/24/18 11/01/18 Rx Magnesium Oxide [Mag-Ox] 400 mg PO DAILY #20 tablet 11/01/18 11/01/18 Rx chlordiazePOXIDE HCl [Librium] 25 mg PO QID 3 Days #12 capsule 11/01/18 11/01/18 Rx Allergies Allergy/AdvReac Type Severity Reaction Status Date / Time adhesive tape Allergy Rash/Hives Verified 11/01/18 16:23 latex Allergy Unknown Verified 11/01/18 16:23 egg AdvReac Nausea & Verified 11/01/18 16:23 Vomiting lisinopril AdvReac EYES Verified 11/01/18 16:23 BURN&ITCH/WEAKNESS tomato AdvReac Nausea & Verified 11/01/18 16:23 Vomiting & Diarrhea Physical Exam Vitals: Vital Signs Temp Pulse Pulse Resp BP BP Pulse Ox 11/02/18 08:42 14 11/02/18 07:00 97.8 F 90 14 119/79 98 11/02/18 04:33 98.3 F 96 16 133/89 98 11/02/18 01:43 119/81 11/02/18 00:24 98.3 F 100 18 99/68 94 L 11/01/18 22:18 106 H 121/72 11/01/18 19:39 98.2 F 115 H 18 125/81 97 11/01/18 19:29 115 H 18 11/01/18 19:05 113/65 11/01/18 18:40 98.6 F 113 H 16 124/77 97 11/01/18 18:00 114 H 20 105/69 97 11/01/18 17:43 116 H 16 111/65 97 11/01/18 17:30 115 H 17 96/72 98 11/01/18 17:00 18 96/72 98 11/01/18 16:30 96/72 93 L 11/01/18 16:22 98.2 F 122 H 16 9672 97 Intake and Output 11/01/18 11/02/18 11/02/18 22:59 06:59 14:59 Intake Total 100 800 Output Total 500 Balance 100 300 Intake: Amount of Fluid Infused ( 100 ml) Intake, IV Titration 800 Amount Sodium Chloride 0.9% 1, 800 000 ml @ 100 mls/hr IV . Q10H STA Rx#:[id number] Output: Urine 500 Other: Voiding Method Toilet Toilet Weight 73.936 kg General appearance: The patient is alert, oriented, in no acute distress. Visibly with arm tremors. HET: Head is normocephalic and atraumatic. Pupils are equal and reactive. Oropharynx is clear without lesions. Neck: Supple without lymphadenopathy. Trachea midline. Heart: S1 S2. Regular rate and rhythm. Lungs: No crackles or wheezes are heard. Abdomen: Soft, mild midepigastric tenderness, nondistended with bowel sounds. No peritoneal signs. No palpable organomegaly or masses. Extremities: Normal skin color and turgor. No cyanosis, rash, ulceration, clubbing, or edema. Radial and pedal pulses are 2/4 bilaterally. Neurological: No focal deficits. Strength and sensation are grossly intact. Results CBC & Chem 7: 11/01/18 23:41 11/01/18 17:05 Labs: Abnormal Lab Results - Last 24 Hours (Table) 11/01/18 11/01/18 11/01/18 Range/Units 17:05 17:05 17:05 RBC 3.42 L (4.30-5.90) m/uL Hgb 11.0 L (13.0-17.5) gm/dL Hct 34.0 L (39.0-53.0) % MCV (80.0-100.0) fL RDW 16.5 H (11.5-15.5) % Plt Count 136 L (150-450) k/uL PT (9.0-12.0) sec INR (<1.2) Sodium 136 L (137-145) mmol/L Glucose 108 H (74-99) mg/dL Magnesium 1.5 L (1.6-2.3) mg/dL AST 129 H (17-59) U/L Alkaline Phosphatase 259 H (38-126) U/L Ammonia 48 H (<30) umol/L Albumin 3.4 L (3.5-5.0) g/dL 11/01/18 11/01/18 Range/Units 17:05 23:41 RBC 2.92 L (4.30-5.90) m/uL Hgb 9.4 L D (13.0-17.5) gm/dL Hct 29.6 L (39.0-53.0) % MCV 101.6 H (80.0-100.0) fL RDW 16.8 H (11.5-15.5) % Plt Count 119 L (150-450) k/uL PT 13.6 H (9.0-12.0) sec INR 1.3 H (<1.2) Sodium (137-145) mmol/L Glucose (74-99) mg/dL Magnesium (1.6-2.3) mg/dL AST (17-59) U/L Alkaline Phosphatase (38-126) U/L Ammonia (<30) umol/L Albumin (3.5-5.0) g/dL Assessment and Plan (1) Hematemesis Narrative/Plan: 63-year-old gentleman with a history chronic alcoholism admitted with acute hematemesis with recent hospitalization for alcohol intoxication upper GI bleed status post EGD with findings of portal hypertensive gastropathy LA grade D esophagitis. Current Visit: Yes Status: Acute Code(s): K92.0 - HEMATEMESIS SNOMED Code(s): 3951587 (2) Acute GI bleeding Current Visit: No Status: Acute Code(s): K92.2 - GASTROINTESTINAL HEMORRHAGE, UNSPECIFIED SNOMED Code(s): 81519335 (3) ETOH abuse Current Visit: Yes Status: Acute Code(s): F10.10 - ALCOHOL ABUSE, UNCOMPLICATED SNOMED Code(s): 83201863 (4) Acute blood loss anemia Current Visit: No Status: Acute Code(s): D62 - ACUTE POSTHEMORRHAGIC ANEMIA SNOMED Code(s): 553568321 (5) Portal hypertensive gastropathy Current Visit: Yes Status: Acute Code(s): K76.6 - PORTAL HYPERTENSION; K31.89 - OTHER DISEASES OF STOMACH AND DUODENUM SNOMED Code(s): 244641741 Plan: 1. CBC every 6 hours 24 hours. Protonix 40 mg twice daily. Alcohol abstinence reinforced. [facility] protocol. Inpatient EGD not planned at this time but contingent on clinical course. Clear liquids. Thank you for this kind referral and the opportunity to participate in the care of your patient. This consultation was discussed with Dr. Mcdowell. The impression and plan of care have been directed as dictated.
[2018-11-02 09:09] LABS: Anisocytosis Slight; Basophils % (A) 0 %; Eosinophils # (A) 0.1 k/uL (0-0.7); Eosinophils % (A) 2 %; HCT 30.1 % (39.0-53.0); HGB 9.7 gm/dL (13.0-17.5); Hypochromasia Moderate; Lymphocytes # (A) 1.4 k/uL (1.0-4.8); Lymphocytes % (A) 33 %; MCH 32.1 pg (25.0-35.0); MCHC 32.1 g/dL (31.0-37.0); Macrocytosis Slight; Mean Platelet Volume 8.6; Monocytes # (A) 0.2 k/uL (0-1.0); Monocytes % (A) 4 %; Neutrophils # (A) 2.4 k/uL (1.3-7.7); Neutrophils % (A) 59 %; Platelet Count 120 k/uL (150-450); RBC 3.01 m/uL (4.30-5.90); RDW 16.4 % (11.5-15.5); WBC 4.1 k/uL (3.8-10.6)
[2018-11-02] MEDS: metFORMIN 500 MG TAB PO SCH ×2 (10:26→17:08)
--- NOTE | 2018-11-02 10:33 | P.HPIM ---
History of Present Illness H&P Date: 11/02/18 This is a 63-year-old male patient of Dr. Phillips. Patient presented with complaints of vomiting blood. Patient has known EtOH. Patient reports his last rink was 3 days ago. Upon last discharge patient was supposed to go to [place]. Patient states he met up with his friends and family and started drinking tequila. Patient has no past medical history of atrial fibrillation, COPD, CVA, diabetes mellitus, GERD, GI bleed, hyperlipidemia, hypertension, pneumonia, prostate disorder anxiety, depression and pulmonary embolism. Patient reports that he had an episode of bloody emesis yesterday. Patient denies any dark stool. Patient had EGD on 10/19/2018 at which showed LA grade D esophagitis, portal hypertensive gastropathy antrum and body biopsies and mild duodenitis. Hemoglobin upon admission 9.4. GI services have been consulted. Alcohol withdrawal protocol initiated. At this time patient is reporting some shaking and tremors. Patient denies any nausea or vomiting at this time. Patient denies chest pain or shortness of breath. Patient denies any urinary burning or frequency. Review of Systems Please refer to HPI otherwise unremarkable Past Medical History Past Medical History: Atrial Fibrillation, Cancer, Chest Pain / Angina, COPD, CVA/TIA, Diabetes Mellitus, GERD/Reflux, GI Bleed, Hyperlipidemia, Hypertension, Pneumonia, Prostate Disorder, Pulmonary Embolus (PE) Additional Past Medical History / Comment(s): tachycardia/palpitations likely d/t alcohol withdrawal. hx of Alcoholism, chronic alcoholic cirrhosis with portal hypertension and previous history of upper and lower GI bleeding, esophageal varices, previous history of childhood seizure which he outgrew not taking any antiepileptic medication-possibly had recent seizure-2017 thought d/t alcohol withdrawal, pulmonary embolism x 2 R lung, TIA, diverticulosis, chronic lower bilateral extremity ankle edema if he walks alot, previous history of septicemia, cervical disc disease with chronic back pain with r sided sciatica, degenerative arthritis involving the lower back, tinnitus, vitamin D deficiency, iron anemia, chronic thrombocytopenia, denies MRSA, C-DIFF -2018, scoliosis, scoliosis. pt had radiation 04/28 for prostate cancer History of Any Multi-Drug Resistant Organisms: C-DIFF, MRSA Date of last positivie culture/infection: n/a MDRO Source:: STOOL Past Surgical History: Appendectomy, Cholecystectomy Additional Past Surgical History / Comment(s): EGDs/esophageal varicies bandings, colonoscopies. Past Anesthesia/Blood Transfusion Reactions: No Reported Reaction Additional Past Anesthesia/Blood Transfusion Reaction / Comment(s): after appendix removed sob Past Psychological History: Anxiety, Depression Additional Psychological History / Comment(s): Pt lives in an apartment alone. Apartment complex has front door ramp and has an elevator. no pets. Sometimes his sister stays with him and cleans his home. He uses a cane to ambulate at times. He drives but currently has no car. He gets to [facility] by [employer]. He has a nebulizer and a glucometer.pt stated he was getting [facility] home care nurse but has'nt seen them in few days,not sure if they're still coming. Used to work in [employer]. Relates that he's not been a smoker. Denies recreational drug use. His left him many years ago he has adult children that he does not see very often. No experience. No travel history. No animal exposures Smoking Status: Never smoker Past Alcohol Use History: Abuse, Daily Additional Past Alcohol Use History / Comment(s): pt reports normally drinks 2 fifths per week. 10/08 admission drank 1 fifth prior to admission. Last drink 10/31/18 Past Drug Use History: None Reported - Past Family History Mother Family Medical History: COPD, CVA/TIA, Dementia Additional Family Medical History / Comment(s): from a stroke Father Family Medical History: Pneumonia Additional Family Medical History / Comment(s): Father of pneumonia when he was close to 80 yrs old. Medications and Allergies Home Medications Medication Instructions Recorded Confirmed Type cloNIDine HCL [Catapres] 0.1 mg PO BID #60 tab 03/26/18 11/01/18 Rx Ferrous Sulfate [Iron (65 MG 325 mg PO DAILY 04/24/18 11/01/18 History Elemental)] Magnesium Oxide [Mag-Ox] 400 mg PO HS 04/24/18 11/01/18 History Thiamine Mononitrate (Vit B1) 100 mg PO DAILY 06/21/18 11/01/18 History [Vitamin B-1] Famotidine [Pepcid] 20 mg PO BID 08/23/18 11/01/18 History amLODIPine [Norvasc] 5 mg PO BID 08/25/18 11/01/18 History LORazepam [Ativan] 0.5 mg PO BID PRN 3 Days #6 tab 09/07/18 11/01/18 Rx metFORMIN HCL [Glucophage] 500 mg PO BID 10/19/18 11/01/18 History Sucralfate [Carafate] 1 gm PO AC-TID 30 Days #90 tab 10/24/18 11/01/18 Rx Magnesium Oxide [Mag-Ox] 400 mg PO DAILY #20 tablet 11/01/18 11/01/18 Rx chlordiazePOXIDE HCl [Librium] 25 mg PO QID 3 Days #12 capsule 11/01/18 11/01/18 Rx Allergies Allergy/AdvReac Type Severity Reaction Status Date / Time adhesive tape Allergy Rash/Hives Verified 11/01/18 16:23 latex Allergy Unknown Verified 11/01/18 16:23 egg AdvReac Nausea & Verified 11/01/18 16:23 Vomiting lisinopril AdvReac EYES Verified 11/01/18 16:23 BURN&ITCH/WEAKNESS tomato AdvReac Nausea & Verified 11/01/18 16:23 Vomiting & Diarrhea Physical Exam Vitals: Vital Signs Temp Pulse Pulse Resp BP BP Pulse Ox 11/02/18 08:42 14 11/02/18 07:00 97.8 F 90 14 119/79 98 11/02/18 04:33 98.3 F 96 16 133/89 98 11/02/18 01:43 119/81 11/02/18 00:24 98.3 F 100 18 99/68 94 L 11/01/18 22:18 106 H 121/72 11/01/18 19:39 98.2 F 115 H 18 125/81 97 11/01/18 19:29 115 H 18 11/01/18 19:05 113/65 11/01/18 18:40 98.6 F 113 H 16 124/77 97 11/01/18 18:00 114 H 20 105/69 97 11/01/18 17:43 116 H 16 111/65 97 11/01/18 17:30 115 H 17 96/72 98 11/01/18 17:00 18 96/72 98 11/01/18 16:30 96/72 93 L 11/01/18 16:22 98.2 F 122 H 16 96/72 97 Intake and Output 11/01/18 11/02/18 11/02/18 22:59 06:59 14:59 Intake Total 100 800 Output Total 500 Balance 100 300 Intake: Amount of Fluid Infused ( 100 ml) Intake, IV Titration 800 Amount Sodium Chloride 0.9% 1, 800 000 ml @ 100 mls/hr IV . Q10H STA Rx#:[id number] Output: Urine 500 Other: Voiding Method Toilet Toilet Weight 73.936 kg Head normocephalic Neck supple Lungs clear to auscultation bilaterally no wheezing or crackles Heart regular rate and rhythm S1-S2, no rub or gallop Abdomen is soft nontender nondistended positive bowel sounds no hepatosplenomegaly Extremities no edema Neuro alert and orientated to 3 Results CBC & Chem 7: 11/02/18 07:55 11/01/18 17:05 Labs: Abnormal Lab Results - Last 24 Hours (Table) 11/01/18 11/01/18 11/01/18 Range/Units 17:05 17:05 17:05 RBC 3.42 L (4.30-5.90) m/uL Hgb 11.0 L (13.0-17.5) gm/dL Hct 34.0 L (39.0-53.0) % MCV (80.0-100.0) fL RDW 16.5 H (11.5-15.5) % Plt Count 136 L (150-450) k/uL PT (9.0-12.0) sec INR (<1.2) Sodium 136 L (137-145) mmol/L Glucose 108 H (74-99) mg/dL Magnesium 1.5 L (1.6-2.3) mg/dL AST 129 H (17-59) U/L Alkaline Phosphatase 259 H (38-126) U/L Ammonia 48 H (<30) umol/L Albumin 3.4 L (3.5-5.0) g/dL 11/01/18 11/01/18 11/02/18 Range/Units 17:05 23:41 07:55 RBC 2.92 L 3.01 L (4.30-5.90) m/uL Hgb 9.4 L D 9.7 L (13.0-17.5) gm/dL Hct 29.6 L 30.1 L (39.0-53.0) % MCV 101.6 H (80.0-100.0) fL RDW 16.8 H 16.4 H (11.5-15.5) % Plt Count 119 L 120 L (150-450) k/uL PT 13.6 H (9.0-12.0) sec INR 1.3 H (<1.2) Sodium (137-145) mmol/L Glucose (74-99) mg/dL Magnesium (1.6-2.3) mg/dL AST (17-59) U/L Alkaline Phosphatase (38-126) U/L Ammonia (<30) umol/L Albumin (3.5-5.0) g/dL Thrombosis Risk Factor Assmnt - Choose All That Apply Any of the Below Risk Factors Present?: Yes Each Factor Represents 1 point: Obesity (BMI >25) Each Risk Factor Represents 2 Points: Age 61-74 years Each Risk Factor Represents 3 Points: History of DVT/PE Thrombosis Risk Factor Assessment Total Risk Factor Score: 6 Thrombosis Risk Factor Assessment Level: High Risk Assessment and Plan Assessment: 1. Possible GI bleed with anemia. GI services have been consulted. We'll continue to monitor, no plans for scopes at this time per GI. Patient underwent EGD and 10/19/2018. Current hemoglobin 9.7 2. Alcohol withdrawal. CIWA protocol initiated continue thiamine. Social work will be consulted for resources upon discharge 3. Recent falls. Patient has TLSO brace at home 4. History of COPD. No exacerbation at this time 5. History of liver cirrhosis with portal hypertension 6. History of proximal atrial fibrillation not on anticoagulation due to history of bleeding esophageal varices 7. Elevated liver enzymes, secondary to liver cirrhosis 8. History of pulmonary embolism 9. Diabetes mellitus type II 10. Previous history of C. diff infection DVT prophylaxis SCDs due to GI bleed. GI prophylaxis Protonix
[2018-11-02 11:06] LABS: Albumin 2.8 g/dL (3.5-5.0); Chloride 108 mmol/L (98-107); Glucose 79 mg/dL (74-99); Potassium 3.9 mmol/L (3.5-5.1); Sodium 139 mmol/L (137-145)
[2018-11-02 11:07] LABS: ALT 38 U/L (21-72); AST 99 U/L (17-59); African American GFR (CKD) >90 (>60 ml/min/1.73 sqM); Alkaline Phosphatase 221 U/L (38-126); Anion Gap 5 mmol/L; Blood Urea Nitrogen 22 mg/dL (9-20); Calcium 7.8 mg/dL (8.4-10.2); Carbon Dioxide 26 mmol/L (22-30); Total Bilirubin 1.5 mg/dL (0.2-1.3)
[2018-11-02 11:38] LABS: Glucose,Whole Blood 90 mg/dL (75-99)
[2018-11-02] MEDS: SUCRALFATE 1 GM TAB PO SCH ×2 (12:11→17:08)
[2018-11-02 12:25] LABS: Anisocytosis Slight; Basophils % (A) 0 %; Eosinophils # (A) 0.1 k/uL (0-0.7); Eosinophils % (A) 1 %; HCT 31.1 % (39.0-53.0); HGB 9.8 gm/dL (13.0-17.5); Hypochromasia Slight; Lymphocytes # (A) 1.2 k/uL (1.0-4.8); Lymphocytes % (A) 28 %; MCH 31.2 pg (25.0-35.0); MCHC 31.5 g/dL (31.0-37.0); MCV 99.1 fL (80.0-100.0); Macrocytosis Slight; Mean Platelet Volume 9.3; Monocytes # (A) 0.2 k/uL (0-1.0); Monocytes % (A) 4 %; Neutrophils # (A) 2.8 k/uL (1.3-7.7); Neutrophils % (A) 66 %; Platelet Count 108 k/uL (150-450); RBC 3.14 m/uL (4.30-5.90); RDW 16.4 % (11.5-15.5); WBC 4.2 k/uL (3.8-10.6)
[2018-11-02] MEDS: chlordiazePOXIDE 25 MG CAP PO SCH ×2 (17:08→22:10)
[2018-11-02 17:55] LABS: Glucose,Whole Blood 116 mg/dL (75-99)
[2018-11-03] LABS: Glucose,Whole Blood 94 mg/dL (75-99)
[2018-11-03] MEDS: INSULIN ASPART (NovoLOG) 100 UNIT/ML VIAL SQ SCH ×4 (00:57→19:03)
[2018-11-03 03:33] LABS: Glucose,Whole Blood 88 mg/dL (75-99)
[2018-11-03 05:49] LABS: Glucose,Whole Blood 90 mg/dL (75-99)
[2018-11-03] MEDS: metFORMIN 500 MG TAB PO SCH ×2 (07:33→17:35)
[2018-11-03] MEDS: THIAMINE 100 MG TAB PO SCH ×2 (07:33→17:35)
[2018-11-03] MEDS: SUCRALFATE 1 GM TAB PO SCH ×3 (07:33→17:35)
[2018-11-03 08:02] LABS: ALT 40 U/L (21-72); AST 110 U/L (17-59); African American GFR (CKD) >90 (>60 ml/min/1.73 sqM); Albumin 3.3 g/dL (3.5-5.0); Alkaline Phosphatase 237 U/L (38-126); Anion Gap 8 mmol/L; Blood Urea Nitrogen 14 mg/dL (9-20); Calcium 8.5 mg/dL (8.4-10.2); Carbon Dioxide 27 mmol/L (22-30); Chloride 105 mmol/L (98-107); Glucose 144 mg/dL (74-99); Potassium 3.4 mmol/L (3.5-5.1); Sodium 140 mmol/L (137-145); Total Bilirubin 1.6 mg/dL (0.2-1.3); Total Protein 6.8 g/dL (6.3-8.2)
[2018-11-03 08:07] LABS: Anisocytosis Slight; Basophils % (A) 0 %; Eosinophils # (A) 0.1 k/uL (0-0.7); Eosinophils % (A) 3 %; HCT 33.7 % (39.0-53.0); HGB 10.5 gm/dL (13.0-17.5); Hypochromasia Moderate; Lymphocytes % (A) 25 %; MCHC 31.1 g/dL (31.0-37.0); MCV 99.8 fL (80.0-100.0); Macrocytosis Slight; Mean Platelet Volume 8.6; Monocytes # (A) 0.1 k/uL (0-1.0); Monocytes % (A) 2 %; Neutrophils # (A) 2.7 k/uL (1.3-7.7); Neutrophils % (A) 68 %; Platelet Count 133 k/uL (150-450); RBC 3.38 m/uL (4.30-5.90); RDW 16.7 % (11.5-15.5)
[2018-11-03] MEDS ORDERED: POTASSIUM CHLORIDE ER 20 MEQ TAB.ER PO STA (08:35)
[2018-11-03] MEDS: amLODIPine 5 MG TAB PO SCH ×2 (09:32→20:48)
[2018-11-03] MEDS: chlordiazePOXIDE 25 MG CAP PO SCH ×4 (09:32→22:10)
[2018-11-03] MEDS: FERROUS SULFATE 325 MG TAB PO SCH (09:32)
[2018-11-03] MEDS: cloNIDine HCL 0.1 MG TAB PO SCH ×2 (09:32→20:48)
[2018-11-03] MEDS: MAGNESIUM OXIDE 400 MG TAB PO SCH ×2 (09:33→20:48)
[2018-11-03] MEDS: PANTOPRAZOLE 40 MG/10 ML VIAL IVP SCH ×2 (09:33→20:48)
--- NOTE | 2018-11-03 10:01 | P.PN ---
Subjective Progress Note Date: 11/03/18 This is a 63-year-old male patient of Dr. Phillips. Patient presented with complaints of vomiting blood. Patient has known EtOH. Patient reports his last rink was 3 days ago. Upon last discharge patient was supposed to go to [place]. Patient states he met up with his friends and family and started drinking tequila. Patient has no past medical history of atrial fibrillation, COPD, CVA, diabetes mellitus, GERD, GI bleed, hyperlipidemia, hypertension, pneumonia, prostate disorder anxiety, depression and pulmonary embolism. Patient reports that he had an episode of bloody emesis yesterday. Patient denies any dark stool. Patient had EGD on 10/19/2018 at which showed LA grade D esophagitis, portal hypertensive gastropathy antrum and body biopsies and mild duodenitis. Hemoglobin upon admission 9.4. GI services have been consulted. Alcohol withdrawal protocol initiated. At this time patient is reporting some shaking and tremors. Patient denies any nausea or vomiting at this time. Patient denies chest pain or shortness of breath. Patient denies any urinary burning or frequency. 11/03/2018 patient admits some dry heaves no further episodes of vomiting. No hematemesis. He does still shaky and does have some hand tremors. He's currently on Librium and Ativan with CIWA protocol for alcohol with drop. Hemoglobin has gone up from 9.8 to 10.5. Patient denies any chest pain or shortness of breath. Denies any difficulty urinating. He is reporting liquidy stools. He had 2 last night and one this morning. Stool for C. diff will be ordered. He does report improvement in his abdominal pain. He is complaining of back pain but does have a known back fracture at L3. Objective - Vital Signs Vital signs: Vital Signs Temp 97.8 F 11/03/18 07:00 Pulse 91 11/03/18 07:00 Resp 16 11/03/18 07:00 BP 126/86 11/03/18 07:00 Pulse Ox 100 11/03/18 07:00 Intake & Output 11/02/18 11/03/18 11/03/18 18:59 06:59 18:59 Intake Total 1710 240 Balance 1710 240 Intake: Intake, IV Titration 700 Amount Sodium Chloride 0.9% 1, 700 000 ml @ 100 mls/hr IV . Q10H STA Rx#:[id number] Oral 1010 240 Other: Voiding Method Toilet Toilet - Exam Head normocephalic Neck supple Lungs clear to auscultation bilaterally no wheezing or crackles Heart regular rate and rhythm S1-S2, no rub or gallop Abdomen is soft nontender nondistended positive bowel sounds no hepatosplenomegaly Extremities no edema Neuro alert and orientated to 3 - Labs CBC & Chem 7: 11/03/18 07:12 11/03/18 07:12 Labs: Abnormal Lab Results - Last 24 Hours (Table) 11/02/18 11/02/18 11/02/18 Range/Units 07:55 12:12 17:54 RBC 3.14 L (4.30-5.90) m/uL Hgb 9.8 L (13.0-17.5) gm/dL Hct 31.1 L (39.0-53.0) % RDW 16.4 H (11.5-15.5) % Plt Count 108 L (150-450) k/uL Potassium (3.5-5.1) mmol/L Chloride 108 H (98-107) mmol/L BUN 22 H (9-20) mg/dL Glucose (74-99) mg/dL POC Glucose (mg/dL) 116 H (75-99) mg/dL Calcium 7.8 L (8.4-10.2) mg/dL Total Bilirubin 1.5 H (0.2-1.3) mg/dL AST 99 H (17-59) U/L Alkaline Phosphatase 221 H (38-126) U/L Total Protein 6.0 L (6.3-8.2) g/dL Albumin 2.8 L (3.5-5.0) g/dL 11/03/18 11/03/18 Range/Units 07:12 07:12 RBC 3.38 L (4.30-5.90) m/uL Hgb 10.5 L (13.0-17.5) gm/dL Hct 33.7 L (39.0-53.0) % RDW 16.7 H (11.5-15.5) % Plt Count 133 L (150-450) k/uL Potassium 3.4 L (3.5-5.1) mmol/L Chloride (98-107) mmol/L BUN (9-20) mg/dL Glucose 144 H (74-99) mg/dL POC Glucose (mg/dL) (75-99) mg/dL Calcium (8.4-10.2) mg/dL Total Bilirubin 1.6 H (0.2-1.3) mg/dL AST 110 H (17-59) U/L Alkaline Phosphatase 237 H (38-126) U/L Total Protein (6.3-8.2) g/dL Albumin 3.3 L (3.5-5.0) g/dL Assessment and Plan Assessment: 1. Possible acute upper GI bleed with hematemesis and acute blood loss anemia. Patient seen by GI service. We'll continue to monitor, no plans for scopes at this time per GI. Patient underwent EGD and 10/19/2018. Hemoglobin is improv ing. It is up to 10.5 2. Alcohol withdrawal with evidence of withdrawal. CIWA protocol initiated continue thiamine. Social work will be consulted for resources upon discharge. She is to be set up with [place] at discharge. Add telemetry monitoring 3. Recent falls with a L3 compression fracture. Has TLSO brace at home. Patient will try to have the TLSO brace brought from home. 4. History of COPD. No exacerbation at this time 5. History of liver cirrhosis with portal hypertension 6. History of proximal atrial fibrillation not on anticoagulation due to history of bleeding esophageal varices 7. Elevated liver enzymes, secondary to liver cirrhosis 8. History of pulmonary embolism 9. Diabetes mellitus type II 10. Previous history of C. diff infection. Patient now having diarrhea. Check stool for C. diff. 11. Hypokalemia patient receiving potassium supplement 12. Hypomagnesemia recheck magnesium level. If remains low we will give supplement. 13. Moderate protein calorie malnutrition. Add Glucerna shakes. Consult physical therapy DVT prophylaxis SCDs due to GI bleed. GI prophylaxis Protonix I performed an examination of the patient and discussed their management with the physician Slotter Operator Helper. I have reviewed the Physician Slotter Operator Helper's notes and agree with the documented findings and plan of care
[2018-11-03] MEDS: MULTIVITAMINS, THERA 1 EACH TAB PO SCH (10:41)
[2018-11-03 11:44] LABS: Glucose,Whole Blood 93 mg/dL (75-99)
[2018-11-03 13:49] VITALS: BMI 27.1
[2018-11-03] MEDS ORDERED: MAGNESIUM SULFATE-D5W PMX 1 GM in DEXTROSE/WATER 1 100ML.BAG IVPB ONE (14:26)
--- NOTE | 2018-11-03 15:38 | P.PN ---
Subjective Progress Note Date: 11/03/18 Principal diagnosis: EtOH abuse hematemesis No further emesis. Feeling better. Requesting diet advancement. No GI bleeding. Hemoglobin 10.5. Objective - Vital Signs Vital signs: Vital Signs Temp 97.6 F 11/03/18 14:54 Pulse 88 11/03/18 14:54 Resp 18 11/03/18 14:54 BP 97/64 11/03/18 14:54 Pulse Ox 96 11/03/18 14:54 Intake & Output 11/02/18 11/03/18 11/03/18 18:59 06:59 18:59 Intake Total 1710 1476 Balance 1710 1476 Weight 73.936 kg Intake: Intake, IV Titration 700 Amount Sodium Chloride 0.9% 1, 700 000 ml @ 100 mls/hr IV . Q10H STA Rx#:[id number] Oral 1010 1476 Other: Voiding Method Toilet Toilet - Exam General appearance: The patient is alert, oriented, in no acute distress. HET: Head is normocephalic and atraumatic. Pupils are equal and reactive. Oropharynx is clear without lesions. Neck: Supple without lymphadenopathy. Trachea midline. Heart: S1 S2. Regular rate and rhythm. Lungs: No crackles or wheezes are heard. Abdomen: Soft, nontender, nondistended with bowel sounds. No peritoneal signs. No palpable organomegaly or masses. Extremities: Normal skin color and turgor. No cyanosis, rash, ulceration, clubbing, or edema. Radial and pedal pulses are 2/4 bilaterally. Neurological: No focal deficits. Strength and sensation are grossly intact. - Labs CBC & Chem 7: 11/03/18 07:12 11/03/18 07:12 Labs: Abnormal Lab Results - Last 24 Hours (Table) 11/02/18 11/03/18 11/03/18 Range/Units 17:54 07:12 07:12 RBC 3.38 L (4.30-5.90) m/uL Hgb 10.5 L (13.0-17.5) gm/dL Hct 33.7 L (39.0-53.0) % RDW 16.7 H (11.5-15.5) % Plt Count 133 L (150-450) k/uL Potassium 3.4 L (3.5-5.1) mmol/L Glucose 144 H (74-99) mg/dL POC Glucose (mg/dL) 116 H (75-99) mg/dL Magnesium (1.6-2.3) mg/dL Total Bilirubin 1.6 H (0.2-1.3) mg/dL AST 110 H (17-59) U/L Alkaline Phosphatase 237 H (38-126) U/L Albumin 3.3 L (3.5-5.0) g/dL 11/03/18 Range/Units 07:41 RBC (4.30-5.90) m/uL Hgb (13.0-17.5) gm/dL Hct (39.0-53.0) % RDW (11.5-15.5) % Plt Count (150-450) k/uL Potassium (3.5-5.1) mmol/L Glucose (74-99) mg/dL POC Glucose (mg/dL) (75-99) mg/dL Magnesium 1.5 L (1.6-2.3) mg/dL Total Bilirubin (0.2-1.3) mg/dL AST (17-59) U/L Alkaline Phosphatase (38-126) U/L Albumin (3.5-5.0) g/dL Assessment and Plan (1) Hematemesis Narrative/Plan: 63-year-old gentleman with a history chronic alcoholism admitted with acute hematemesis with recent hospitalization for alcohol intoxication upper GI bleed status post EGD with findings of portal hypertensive gastropathy LA grade D esophagitis. Current Visit: Yes Status: Acute Code(s): K92.0 - HEMATEMESIS SNOMED Code(s): 1096246 (2) Acute GI bleeding Current Visit: No Status: Acute Code(s): K92.2 - GASTROINTESTINAL HEMORRHA GE, UNSPECIFIED SNOMED Code(s): 01049288 (3) ETOH abuse Current Visit: Yes Status: Acute Code(s): F10.10 - ALCOHOL ABUSE, UNCOMPLICATED SNOMED Code(s): 41088656 (4) Acute blood loss anemia Current Visit: No Status: Acute Code(s): D62 - ACUTE POSTHEMORRHAGIC ANEMIA SNOMED Code(s): 783982422 (5) Portal hypertensive gastropathy Current Visit: Yes Status: Acute Code(s): K76.6 - PORTAL HYPERTENSION; K31.89 - OTHER DISEASES OF STOMACH AND DUODENUM SNOMED Code(s): 778529217 Plan: 1. CBC monitoring. Protonix 40 mg twice daily. Alcohol abstinence reinforced. [facility] protocol. Inpatient EGD not planned at this time but contingent on clinical course. Will advance to regular diet. Assessment and plan a care discussed with Dr. Mcdowell
[2018-11-03 18:42] LABS: Glucose,Whole Blood 147 mg/dL (75-99)
[2018-11-03] MEDS ORDERED: Acetaminophen-Codeine 300-30mg TAB PO PRN (19:17)
[2018-11-04] MEDS: INSULIN ASPART (NovoLOG) 100 UNIT/ML VIAL SQ SCH ×3 (00:24→11:53)
[2018-11-04 00:25] LABS: Glucose,Whole Blood 115 mg/dL (75-99)
[2018-11-04 01:57] VITALS: RESP 16
[2018-11-04 05:57] LABS: Glucose,Whole Blood 95 mg/dL (75-99)
[2018-11-04 07:17] LABS: Anisocytosis Slight; Basophils % (A) 0 %; Eosinophils # (A) 0.1 k/uL (0-0.7); Eosinophils % (A) 3 %; HGB 9.6 gm/dL (13.0-17.5); Hypochromasia Slight; Lymphocytes # (A) 1.3 k/uL (1.0-4.8); Lymphocytes % (A) 32 %; MCH 31.5 pg (25.0-35.0); MCHC 31.9 g/dL (31.0-37.0); MCV 98.8 fL (80.0-100.0); Macrocytosis Slight; Mean Platelet Volume 8.5; Monocytes # (A) 0.2 k/uL (0-1.0); Monocytes % (A) 4 %; Neutrophils # (A) 2.4 k/uL (1.3-7.7); Neutrophils % (A) 59 %; Platelet Count 151 k/uL (150-450); RBC 3.04 m/uL (4.30-5.90); RDW 16.2 % (11.5-15.5)
[2018-11-04 07:33] LABS: ALT 43 U/L (21-72); AST 107 U/L (17-59); African American GFR (CKD) >90 (>60 ml/min/1.73 sqM); Alkaline Phosphatase 227 U/L (38-126); Anion Gap 9 mmol/L; Blood Urea Nitrogen 11 mg/dL (9-20); Calcium 8.5 mg/dL (8.4-10.2); Carbon Dioxide 23 mmol/L (22-30); Chloride 109 mmol/L (98-107); Glucose 98 mg/dL (74-99); Magnesium 1.7 mg/dL (1.6-2.3); Potassium 3.7 mmol/L (3.5-5.1); Sodium 141 mmol/L (137-145); Total Bilirubin 0.7 mg/dL (0.2-1.3); Total Protein 6.5 g/dL (6.3-8.2)
[2018-11-04] MEDS: MULTIVITAMINS, THERA 1 EACH TAB PO SCH (08:08)
[2018-11-04] MEDS: metFORMIN 500 MG TAB PO SCH (08:08)
[2018-11-04] MEDS: PANTOPRAZOLE 40 MG/10 ML VIAL IVP SCH (08:08)
[2018-11-04] MEDS: SUCRALFATE 1 GM TAB PO SCH ×2 (08:08→14:20)
[2018-11-04] MEDS: cloNIDine HCL 0.1 MG TAB PO SCH (08:08)
[2018-11-04] MEDS: amLODIPine 5 MG TAB PO SCH (08:08)
[2018-11-04] MEDS: THIAMINE 100 MG TAB PO SCH (08:08)
[2018-11-04] MEDS: FERROUS SULFATE 325 MG TAB PO SCH (08:08)
[2018-11-04] MEDS: MAGNESIUM OXIDE 400 MG TAB PO SCH (08:09)
[2018-11-04] MEDS: chlordiazePOXIDE 25 MG CAP PO SCH ×2 (08:09→14:20)
[2018-11-04] MEDS ORDERED: MAGNESIUM SULFATE-D5W PMX 1 GM in DEXTROSE/WATER 1 100ML.BAG IVPB ONE (09:00)
[2018-11-04 09:24] VITALS: BP 109/71; PULSE 84; TEMP 97.8
[2018-11-04 11:53] LABS: Glucose,Whole Blood 93 mg/dL (75-99)
--- NOTE | 2018-11-04 12:26 | P.DS ---
Providers Date of admission: 11/01/18 18:31 Expected date of discharge: 11/04/18 Attending physician: Charlette Finney Consults: 11/01/18 21:25 Consult Physician Routine Consulting Provider: Job Mcdowell Consult Reason/Comments: GIB Do you want consulting provider notified?: Yes, Notify in am Primary care physician: Yoon Phillips Hospital Course: Discharge diagnosis 1. Acute upper GI bleed with hematemesis and acute blood loss anemia. Patient seen by GI service. We'll continue to monitor, no plans for scopes at this time per GI. Patient underwent EGD and 10/19/2018. Hemoglobin is improving. It is 9.6 2. Alcohol abuse with evidence of withdrawal during the admission. Patient will be following up with [facility] after discharge. Continue Librium, multivitamin and thiamine 3. Recent falls with a L3 compression fracture. Has TLSO brace at home. Patient will try to have the TLSO brace brought from home. 4. History of COPD. No exacerbation at this time 5. History of liver cirrhosis with portal hypertension 6. History of proximal atrial fibrillation not on anticoagulation due to history of bleeding esophageal varices 7. Elevated liver enzymes, secondary to liver cirrhosis 8. History of pulmonary embolism 9. Diabetes mellitus type II 10. Previous history of C. diff infection. Diarrhea resolved. Stool for C. diff negative 11. Hypokalemia : Improved with supplement 12. Hypomagnesemia : Magnesium at discharge is 1.7. Continue with his oral magnesium 400 mg twice a day 13. Moderate protein calorie malnutrition. Add Glucerna shakes. 14. Iron deficiency anemia: Continue iron supplement Hospital course This is a 63-year-old male patient of Dr. Phillips. Patient presented with complaints of vomiting blood. Patient has known EtOH. Patient reports his last rink was 3 days ago. Upon last discharge patient was supposed to go to [facility]. Patient states he met up with his friends and family and started drinking tequila. Patient has no past medical history of atrial fibrillation, COPD, CVA, diabetes mellitus, GERD, GI bleed, hyperlipidemia, hypertension, pneumonia, prostate disorder anxiety, depression and pulmonary embolism. Patient reports that he had an episode of bloody emesis yesterday. Patient denies any dark stool. Patient had EGD on 10/19/2018 at which showed LA grade D esophagitis, portal hypertensive gastropathy antrum and body biopsies and mild duodenitis. Hemoglobin upon admission 9.4. GI services have been consulted. Alcohol withdrawal protocol initiated. At this time patient is reporting some shaking and tremors. Patient denies any nausea or vomiting at this time. Patient denies chest pain or shortness of breath. Patient denies any urinary burning or frequency. 11/03/2018 patient admits some dry heaves no further episodes of vomiting. No hematemesis. He does still shaky and does have some hand tremors. He's currently on Librium and Ativan with [facility] protocol for alcohol with drop. Hemoglobin has gone up from 9.8 to 10.5. Patient denies any chest pain or shortness of breath. Denies any difficulty urinating. He is reporting liquidy stools. He had 2 last night and one this morning. Stool for C. diff will be ordered. He does report improvement in his abdominal pain. He is complaining of back pain but does have a known back fracture at L3. 11/04/2018 patient is medically stable for discharge. He's had no further episodes of vomiting. Diarrhea has resolved. Stool for C. diff was negative. Hemoglobin at discharge is 9.6. He'll continue his iron supplements. He was seen by GI service no need for endoscopy during this admission. Patient had recent EGD on 10/19/2017. The recommending that he continues the Carafate and Protonix. Patient is not expressing any significant alcohol withdrawal-like symptoms. He is continue the Librium and Ativan as needed. Continue multivitamin and thiamine. Patient has information to follow-up with [facility] outpatient. He is in the process of moving to a new apartment. And then he plans to call to get into [facility]. Patient will follow up with his PCP in 3 days. Patient has been educated to abstain from alcohol use I performed an examination of the patient and discussed their management with the physician Prescription Clerk. I have reviewed the Physician Prescription Clerk's notes and ag ree with the documented findings and plan of care Patient Condition at Discharge: Stable Plan - Discharge Summary Discharge Rx Participant: No New Discharge Prescriptions: New Multivitamins, Thera [Multivitamin (formulary)] 1 each PO DAILY #30 tab Pantoprazole Sodium [Protonix] 40 mg PO BID #60 tablet. Continue cloNIDine HCL [Catapres] 0.1 mg PO BID #60 tab Magnesium Oxide [Mag-Ox] 400 mg PO HS Ferrous Sulfate [Iron (65 MG Elemental)] 325 mg PO DAILY Thiamine Mononitrate (Vit B1) [Vitamin B-1] 100 mg PO DAILY amLODIPine [Norvasc] 5 mg PO BID LORazepam [Ativan] 0.5 mg PO BID PRN 3 Days #6 tab PRN Reason: tremors metFORMIN HCL [Glucophage] 500 mg PO BID Sucralfate [Carafate] 1 gm PO AC-TID 30 Days #90 tab chlordiazePOXIDE HCl [Librium] 25 mg PO QID 3 Days #12 capsule Magnesium Oxide [Mag-Ox] 400 mg PO DAILY #20 tablet Discontinued Famotidine [Pepcid] 20 mg PO BID Discharge Medication List cloNIDine HCL [Catapres] 0.1 mg PO BID #60 tab 03/26/18 [Rx] Ferrous Sulfate [Iron (65 MG Elemental)] 325 mg PO DAILY 04/24/18 [History] Magnesium Oxide [Mag-Ox] 400 mg PO HS 04/24/18 [History] Thiamine Mononitrate (Vit B1) [Vitamin B-1] 100 mg PO DAILY 06/21/18 [History] amLODIPine [Norvasc] 5 mg PO BID 08/25/18 [History] LORazepam [Ativan] 0.5 mg PO BID PRN 3 Days #6 tab 09/07/18 [Rx] metFORMIN HCL [Glucophage] 500 mg PO BID 10/19/18 [History] Sucralfate [Carafate] 1 gm PO AC-TID 30 Days #90 tab 10/24/18 [Rx] Magnesium Oxide [Mag-Ox] 400 mg PO DAILY #20 tablet 11/01/18 [Rx] chlordiazePOXIDE HCl [Librium] 25 mg PO QID 3 Days #12 capsule 11/01/18 [Rx] Multivitamins, Thera [Multivitamin (formulary)] 1 each PO DAILY #30 tab 11/04/18 [Rx] Pantoprazole Sodium [Protonix] 40 mg PO BID #60 tablet. 11/04/18 [Rx] Follow up Appointment(s)/Referral(s): Yoon Phillips DO [Primary Care Provider] - 3 Days Activity/Diet/Wound Care/Special Instructions: Diet: cardiac, diabetic Activity: as tolerated Patient to follow up with [facility] outpatient Discharge Disposition: HOME SELF-CARE
== END 2018-11-04 16:58 | disposition home or self-care (01) ==
LOC: EC 16:13 → 4SSUR 18:31
PROVIDERS: ADMIT Internal Medicine; ATTEND Internal Medicine
DX: K92.0 Hematemesis (principal); E86.0 Dehydration; F10.239 Alcohol dependence with withdrawal, unspecified; K21.0 Gastro-esophageal reflux disease with esophagitis; J44.9 Chronic obstructive pulmonary disease, unspecified; I10 Essential (primary) hypertension; K29.80 Duodenitis without bleeding; F41.9 Anxiety disorder, unspecified; F32.9 Major depressive disorder, single episode, unspecified; K70.30 Alcoholic cirrhosis of liver without ascites; I48.0 Paroxysmal atrial fibrillation; E11.9 Type 2 diabetes mellitus without complications; E78.5 Hyperlipidemia, unspecified; E83.42 Hypomagnesemia; E87.6 Hypokalemia; R29.6 Repeated falls; Z91.81 History of falling; S32.039A Unspecified fracture of third lumbar vertebra, initial encounter for closed fracture; E44.0 Moderate protein-calorie malnutrition; D62 Acute posthemorrhagic anemia; K31.89 Other diseases of stomach and duodenum; Z86.19 Personal history of other infectious and parasitic diseases; K76.6 Portal hypertension; Z90.49 Acquired absence of other specified parts of digestive tract; Z85.46 Personal history of malignant neoplasm of prostate; Z86.711 Personal history of pulmonary embolism; Z86.73 Personal history of transient ischemic attack (TIA), and cerebral infarction without residual deficits; Z86.14 Personal history of Methicillin resistant Staphylococcus aureus infection; Z79.84 Long term (current) use of oral hypoglycemic drugs; Z79.899 Other long term (current) drug therapy; Z82.3 Family history of stroke; Z82.5 Family history of asthma and other chronic lower respiratory diseases; Z91.012 Allergy to eggs; Z91.040 Latex allergy status; Z88.8 Allergy status to other drugs, medicaments and biological substances; Z91.018 Allergy to other foods; Z91.048 Other nonmedicinal substance allergy status
CPT/HCPCS: 96376 ×4; 96361 ×3; 96365; 96366; 96375 ×2; 96372; 99285; 36415; 97162; 80053 ×4; 82140; 82550; 83690; 83735 ×3; 84484; 85025 ×4; 85610; 85730; 87324; 83036; G0378 ×4; J2060 ×2; J2270; J3411; J2405; J3475 ×2; C9113 ×4

== ENCOUNTER 2018-12-12 11:24 | Inpatient (IN) | payer OTHER ==
--- NOTE | 2018-12-12 12:03 | ED ---
General Adult HPI - General Chief complaint: Fall Stated complaint: Fall Time Seen by Provider: 12/12/18 11:36 Source: patient Mode of arrival: ambulatory Limitations: no limitations - History of Present Illness Initial comments: Dictation was produced using [employer] dictation software. please excuse any grammatical, word or spelling errors. Chief Complaint: 63-year-old male with past medical history of A. fib cancer hypertension and hyperlipidemia presents after mechanical fall. History of Present Illness: 63-year-old male presents after mechanical fall. He has history multiple comorbidities. He was walking up some steps approximately 1-2 hours prior to arrival. He states his cane slipped from under him causing him to fall backwards. Patient states he struck his head. After the fall he is complaining of head and neck pain. It has any neurologic deficits. Patient otherwise has no other complaints. Denies any blood thinner medications. The ROS documented in this emergency department record has been reviewed and confirmed by me. Those systems with pertinent positive or negative responses have been documented in the HPI. All other systems are other negative and/or noncontributory. PHYSICAL EXAM: General Impression: Alert and oriented x3, not in acute distress HEENT: Normocephalic atraumatic, extra-ocular movements intact, pupils equal and reactive to light bilaterally, mucous membranes moist, tenderness to the entire posterior cervical spine Cardiovascular: Heart regular rate and rhythm, S1&S2 audible, no murmurs, rubs or gallops Chest: Lungs clear to auscultation bilaterally, no rhonchi, no wheeze, no rales Abdomen: Bowel sounds present, abdomen soft, non-tender, non-distended, no org anomegaly Musculoskeletal: Pulses present and equal in all extremities, no peripheral edema, all joints ranged with no acute processes. Motor: no focal deficits noted Neurological: CN II-XII grossly intact, no focal motor or sensory deficits noted Skin: Intact with no visualized rashes Psych: Normal affect and mood ED course: 63-year-old male presents with head and neck pain after fall. His upon arrival shows heart rate of 124, rest of vital signs except limits. Patient had significantly at this time. He is in a c-collar Patient is well-known to EMS. He is a known alcoholic. Patient states he drinks often. Patient states he has not had a drink in 3-4 days. He does report history of EtOH withdrawals within the last couple months. After evaluation obtained. Leukopenia of 3.6, hemoglobin 10.9, platelets of 142. Coag panel unremarkable. Metabolic panel is negative. Imaging studies were obtained to evaluate for traumatic injuries because he fell today. No findings of acute trauma injuries to the head and C-spine. Chest x-ray and pelvis x-ray are unremarkable. Patient given some Ativan with improvement of his vital signs. Patient be admitted for EtOH withdrawal. He is given fluids and supplemental vitamins and electrolytes. Discussed patient case with Dr. Kaplan went except patient's care. Discussed patient case with Dr. Marcus was willing to accept patients care. EKG interpretation: Ventricular rate 123, sinus tachycardia, CT interval 154, QRS 68, QTC 452. No CT prolongation, no QTC prolongation, no ST or T-wave changes noted. Compared to 10/31/2018 with no findings of changes. Overall, this EKG is unremarkable - Related Data Home Medications Medication Instructions Recorded Confirmed Ferrous Sulfate [Iron (65 MG 325 mg PO DAILY 04/24/18 12/12/18 Elemental)] Thiamine Mononitrate (Vit B1) 100 mg PO DAILY 06/21/18 12/12/18 [Vitamin B-1] amLODIPine [Norvasc] 5 mg PO BID 08/25/18 12/12/18 metFORMIN HCL [Glucophage] 500 mg PO BID 10/19/18 12/12/18 Multivitamins, Thera [Multivitamin 1 tab PO DAILY 12/12/18 12/12/18 (formulary)] Previous Rx's Medication Instructions Recorded cloNIDine HCL [Catapres] 0.1 mg PO BID #60 tab 03/26/18 Sucralfate [Carafate] 1 gm PO AC-TID 30 Days #90 tab 10/24/18 Magnesium Oxide [Mag-Ox] 400 mg PO DAILY #20 tablet 11/01/18 LORazepam [Ativan] 0.5 mg PO BID PRN 3 Days #6 tab 11/04/18 Pantoprazole Sodium [Protonix] 40 mg PO BID #60 tablet. 11/04/18 chlordiazePOXIDE HCl [Librium] 25 mg PO QID 3 Days #12 capsule 11/04/18 Allergies Allergy/AdvReac Type Severity Reaction Status Date / Time adhesive tape Allergy Rash/Hives Verified 12/12/18 11:39 latex Allergy Unknown Verified 12/12/18 11:39 lisinopril Allergy EYES Verified 12/12/18 11:39 BURN&ITCH/WEAKNESS egg AdvReac Nausea & Verified 12/12/18 11:39 Vomiting tomato AdvReac Nausea & Verified 12/12/18 11:39 Vomiting & Diarrhea Review of Systems ROS Statement: Those systems with pertinent positive or pertinent negative responses have been documented in the HPI. ROS Other: All systems not noted in ROS Statement are negative. Past Medical History Past Medical History: Atrial Fibrillation, Cancer, Chest Pain / Angina, COPD, CVA/TIA, Diabetes Mellitus, GERD/Reflux, GI Bleed, Hyperlipidemia, Hypertension, Pneumonia, Prostate Disorder, Pulmonary Embolus (PE) Additional Past Medical History / Comment(s): tachycardia/palpitations likely d /t alcohol withdrawal. hx of Alcoholism, chronic alcoholic cirrhosis with portal hypertension and previous history of upper and lower GI bleeding, esophageal varices, previous history of childhood seizure which he outgrew not taking any antiepileptic medication-possibly had recent seizure-2018 thought d/t alcohol withdrawal, pulmonary embolism x 2 R lung, TIA, diverticulosis, chronic lower bilateral extremity ankle edema if he walks alot, previous history of septicemia, cervical disc disease with chronic back pain with r sided sciatica, degenerative arthritis involving the lower back, tinnitus, vitamin D deficiency, iron anemia, chronic thrombocytopenia, denies MRSA, C-DIFF -2018, scoliosis, scoliosis. pt had radiation 04/28 for prostate cancer History of Any Multi-Drug Resistant Organisms: C-DIFF, MRSA Date of last positivie culture/infection: n/a MDRO Source:: STOOL Past Surgical History: Appendectomy, Cholecystectomy Additional Past Surgical History / Comment(s): EGDs/esophageal varicies bandings, colonoscopies. Past Anesthesia/Blood Transfusion Reactions: No Reported Reaction Additional Past Anesthesia/Blood Transfusion Reaction / Comment(s): after appendix removed sob Past Psychological History: Anxiety, Depression Smoking Status: Never smoker Past Alcohol Use History: Abuse, Daily Past Drug Use History: None Reported - Past Family History Mother Family Medical History: COPD, CVA/TIA, Dementia Additional Family Medical History / Comment(s): from a stroke Father Family Medical History: Pneumonia Additional Family Medical History / Comment(s): Father of pneumonia when he was close to 80 yrs old. General Exam Limitations: no limitations Course Vital Signs 12/12/18 12/12/18 12/12/18 11:36 12:30 13:39 Temperature 98.3 F Pulse Rate 124 H 125 H 122 H Respiratory 20 22 20 Rate Blood Pressure 167/110 151/105 159/102 O2 Sat by Pulse 96 97 98 Oximetry Medical Decision Making - Lab Data Result diagrams: 12/12/18 12:15 12/12/18 12:15 Lab Results 12/12/18 12/12/18 12/12/18 Range/Units 12:15 12:15 12:15 WBC 3.6 L (3.8-10.6) k/uL RBC 3.87 L (4.30-5.90) m/uL Hgb 10.9 L (13.0-17.5) gm/dL Hct 35.0 L (39.0-53.0) % MCV 90.4 D (80.0-100.0) fL MCH 28.3 (25.0-35.0) pg MCHC 31.2 (31.0-37.0) g/dL RDW 18.7 H (11.5-15.5) % Plt Count 142 L (150-450) k/uL Neutrophils % 71 % Lymphocytes % 19 % Monocytes % 7 % Eosinophils % 1 % Basophils % 0 % Neutrophils # 2.6 (1.3-7.7) k/uL Lymphocytes # 0.7 L (1.0-4.8) k/uL Monocytes # 0.3 (0-1.0) k/uL Eosinophils # 0.0 (0-0.7) k/uL Basophils # 0.0 (0-0.2) k/uL Hypochromasia Slight Anisocytosis Slight PT 11.9 (9.0-12.0) sec INR 1.1 (<1.2) Sodium 140 (137-145) mmol/L Potassium 4.0 (3.5-5.1) mmol/L Chloride 103 (98-107) mmol/L Carbon Dioxide 24 (22-30) mmol/L Anion Gap 13 mmol/L BUN 7 L (9-20) mg/dL Creatinine 0.59 L (0.66-1.25) mg/dL Est GFR (CKD-EPI)AfAm >90 (>60 ml/min/1.73 sqM) Est GFR (CKD-EPI)NonAf >90 (>60 ml/min/1.73 sqM) Glucose 106 H (74-99) mg/dL POC Glucose (mg/dL) (75-99) mg/dL POC Glu Property Maintenance Supervisor ID Calcium 8.6 (8.4-10.2) mg/dL 12/12/18 Range/Units 12:19 WBC (3.8-10.6) k/uL RBC (4.30-5.90) m/uL Hgb (13.0-17.5) gm/dL Hct (39.0-53.0) % MCV (80.0-100.0) fL MCH (25.0-35.0) pg MCHC (31.0-37.0) g/dL RDW (11.5-15.5) % Plt Count (150-450) k/uL Neutrophils % % Lymphocytes % % Monocytes % % Eosinophils % % Basophils % % Neutrophils # (1.3-7.7) k/uL Lymphocytes # (1.0-4.8) k/uL Monocytes # (0-1.0) k/uL Eosinophils # (0-0.7) k/uL Basophils # (0-0.2) k/uL Hypochromasia Anisocytosis PT (9.0-12.0) sec INR (<1.2) Sodium (137-145) mmol/L Potassium (3.5-5.1) mmol/L Chloride (98-107) mmol/L Carbon Dioxide (22-30) mmol/L Anion Gap mmol/L BUN (9-20) mg/dL Creatinine (0.66-1.25) mg/dL Est GFR (CKD-EPI)AfAm (>60 ml/min/1.73 sqM) Est GFR (CKD-EPI)NonAf (>60 ml/min/1.73 sqM) Glucose (74-99) mg/dL POC Glucose (mg/dL) 94 (75-99) mg/dL POC Glu Property Maintenance Supervisor ID Uriel Harding Calcium (8.4-10.2) mg/dL Disposition Clinical Impression: Fall, Alcohol withdrawal Disposition: ADMITTED IP TO THIS HOSP Condition: Fair Referrals: Yoon Phillips DO [Primary Care Provider] - 1-2 days Time of Disposition: 15:22
[2018-12-12 12:21] LABS: Glucose,Whole Blood 94 mg/dL (75-99)
[2018-12-12] MEDS ORDERED: ONDANSETRON 4 MG/2 ML VIAL IVP STA (12:23)
[2018-12-12 12:42] LABS: African American GFR (CKD) >90 (>60 ml/min/1.73 sqM); Anion Gap 13 mmol/L; Blood Urea Nitrogen 7 mg/dL (9-20); Calcium 8.6 mg/dL (8.4-10.2); Carbon Dioxide 24 mmol/L (22-30); Chloride 103 mmol/L (98-107); Glucose 106 mg/dL (74-99); INR 1.1 (<1.2); Prothrombin Time 11.9 sec (9.0-12.0); Sodium 140 mmol/L (137-145)
[2018-12-12 12:59] LABS: Anisocytosis Slight; Basophils % (A) 0 %; Eosinophils % (A) 1 %; HGB 10.9 gm/dL (13.0-17.5); Hypochromasia Slight; Lymphocytes # (A) 0.7 k/uL (1.0-4.8); Lymphocytes % (A) 19 %; MCH 28.3 pg (25.0-35.0); MCHC 31.2 g/dL (31.0-37.0); Mean Platelet Volume 7.8; Monocytes # (A) 0.3 k/uL (0-1.0); Monocytes % (A) 7 %; Neutrophils # (A) 2.6 k/uL (1.3-7.7); Neutrophils % (A) 71 %; Platelet Count 142 k/uL (150-450); RBC 3.87 m/uL (4.30-5.90); RDW 18.7 % (11.5-15.5); WBC 3.6 k/uL (3.8-10.6)
[2018-12-12 13:12] LABS: MCV 90.4 fL (80.0-100.0)
--- NOTE | 2018-12-12 13:15 | CT ---
EXAMINATION TYPE: CT brain latrice wo con DATE OF EXAM: 12/12/2018 COMPARISON: 10/08/2018 HISTORY: 63-year-old male with pain after Fall today CT DLP: 1488.1 mGycm Automated exposure control for dose reduction was used. Technique: Examination of the head was done in axial plane without intravenous contrast. Coronal and sagittal reconstructions performed. CT of the cervical spine was obtained in axial plane without intravenous injection of contrast mater ial. Coronal and sagittal reformatted images were obtained from the axial views for evaluation of f ractures, spinal alignment and canal. FINDINGS: Head: There is no evidence of acute intracranial hemorrhage, acute ischemic changes, mass, mass-effect, or extra-axial fluid collection. There is no effacement of cerebral sulci or basal subarachnoid cister ns. There is no hydrocephalus. There is no midline shift. Abreu-white matter distinction is preserv ed. Leftward nasal septal deviation. Paranasal sinuses and mastoid air cells well pneumatized. Cerumen le ft external auditory canal. Orbits and globes are intact. Cervical spine: Scattered periodontal disease. No craniocervical junction abnormality, predental space widening, or prevertebral soft tissue swellin g. Degenerative changes at the C1 dens articulation. Anterior wedging of T3 vertebral body with accentuated kyphosis at this level is unchanged from 2018. Moderate disc/endplate degenerative change scattered throughout with scattered moderate to advanced f acet and uncovertebral joint arthropathy. Alignment is maintained. No acute fracture seen of the cervical spine. Variable mild to moderate neuroforaminal narrowing on either side. Sagittal and coronal reformatted images confirm above findings. COMBINED IMPRESSION: 1. No acute intracranial abnormality seen. 2. No acute fracture of the cervical spine or malalignment. Chronic anterior wedging of T3, unchanged from 10/08/2018. Moderate to advanced spondylotic change.
[2018-12-12] MEDS ORDERED: LORazepam 2 MG/ML INJ IV STA (13:38)
[2018-12-12] MEDS ORDERED: THIAMINE 100 MG/ML 2 ML VIAL IM STA (15:14)
[2018-12-12] MEDS ORDERED: LORazepam 2 MG/ML INJ IV PRN ×2 (15:14)
[2018-12-12] MEDS ORDERED: MULTIVITAMINS, THERA 1 EACH TAB PO STA (15:17)
[2018-12-12] MEDS ORDERED: POTASSIUM CHLORIDE ER 20 MEQ TAB.ER PO STA (15:17)
[2018-12-12] MEDS ORDERED: MAGNESIUM SULFATE-D5W PMX 1 GM in DEXTROSE/WATER 1 100ML.BAG IVPB STA (15:17)
[2018-12-12] MEDS ORDERED: FOLIC ACID 1 MG TAB PO STA (15:17)
[2018-12-12] MEDS ORDERED: NALOXONE 0.4 MG/ML 1 ML VIAL IV PRN (15:18)
--- NOTE | 2018-12-12 15:26 | XR ---
EXAMINATION TYPE: XR chest 2V DATE OF EXAM: 12/12/2018 COMPARISON: Prior chest x-ray 10/31/2018 HISTORY: Pain after fall TECHNIQUE: Frontal and lateral views of the chest are obtained. FINDINGS: The patient is rotated. There is no focal air space opacity, pleural effusion, or pneumotho rax seen. The cardiac silhouette size is stable. The aorta is dense. The osseous structures are int act. Nodular density in the left midlung laterally is stable and likely represents granuloma. IMPRESSION: No acute cardiopulmonary process.
--- NOTE | 2018-12-12 15:49 | XR ---
EXAMINATION TYPE: XR pelvis AP view DATE OF EXAM: 12/12/2018 COMPARISON: 09/27/2018 HISTORY: 63-year-old male with pain after fall TECHNIQUE: Single AP view FINDINGS: The lateralmost right greater trochanter is excluded from view. Mild degenerative change of both hips . Osteopenia. No displaced fracture is seen. SI joints appear symmetric and intact. IMPRESSION: 1. Note that the lateralmost right greater trochanter is excluded from view and not assessed. 2. Osteopenia without displaced fractures. If the patient is nonweightbearing, MRI can provide more s ensitive evaluation for occult osseous injuries.
[2018-12-12] MEDS: SODIUM CHLORIDE 0.9% 1,000 ML IV SCH (16:19)
[2018-12-12] MEDS: LORazepam 2 MG/ML INJ IV PRN ×2 (16:27→22:47)
[2018-12-12 20:18] VITALS: BMI 26.6
[2018-12-13] MEDS: LORazepam 2 MG/ML INJ IV PRN ×5 (05:09→22:56)
[2018-12-13] MEDS: MAGNESIUM OXIDE 400 MG TAB PO SCH (07:56)
[2018-12-13] MEDS: metFORMIN 500 MG TAB PO SCH ×2 (07:56→20:11)
[2018-12-13] MEDS: THIAMINE 100 MG TAB PO SCH ×2 (07:56→18:06)
[2018-12-13] MEDS: amLODIPine 5 MG TAB PO SCH (07:56)
[2018-12-13] MEDS: PANTOPRAZOLE 40 MG TABLET PO SCH ×2 (09:34→18:06)
--- NOTE | 2018-12-13 11:47 | P.HPIM ---
History of Present Illness H&P Date: 12/13/18 Chief Complaint: Fall Anders Aguilar is a 63 yo M with PMH significant for alcohol abuse, cirrhosis, esophageal varices, paroxysmal A fib, COPD who presented to [facility] ED after a fall yesterday. He states he was walking down some steps and his cane slipped, he landed on his low back and hit his head on the cement. Pt denies loss of consciousness, headache, nausea, or vomiting. He states he was not drinking at the time of his fall but does typically have a few tall boys daily. He denies chest pain, shortness of breath, or recent illness. On presentation to the ED, vitals stable and hip XR and CT head/neck negative for fracture. Labs show leukopenia, anemia, otherwise unremarkable. He was noted to be in alcohol withdrawal in the ED and was started on CIWA protocol. Today, he endorses shakes and diaphoresis with difficulty sleeping last night. Past Medical History Past Medical History: Atrial Fibrillation, Cancer, Chest Pain / Angina, COPD, CVA/TIA, Diabetes Mellitus, GERD/Reflux, GI Bleed, Hyperlipidemia, Hypertension, Pneumonia, Prostate Disorder, Pulmonary Embolus (PE) Additional Past Medical History / Comment(s): tachycardia/palpitations likely d/t alcohol withdrawal. hx of Alcoholism, chronic alcoholic cirrhosis with portal hypertension and previous history of upper and lower GI bleeding, esophageal varices, previous history of childhood seizure which he outgrew not taking any antiepileptic medication-possibly had recent seizure-2018 thought d/t alcohol withdrawal, pulmonary embolism x 2 R lung, TIA, diverticulosis, chronic lower bilateral extremity ankle edema if he walks alot, previous history of septicemia, cervical disc disease with chronic back pain with r sided sciatica, degenerative arthritis involving the lower back, tinnitus, vitamin D deficiency, iron anemia, chronic thrombocytopenia, denies MRSA, C-DIFF -2018, scoliosis, scoliosis. pt had radiation th04/28 for prostate cancer History of Any Multi-Drug Resistant Organisms: C-DIFF, MRSA Date of last positivie culture/infection: n/a MDRO Source:: STOOL Past Surgical History: Appendectomy, Cholecystectomy Additional Past Surgical History / Comment(s): EGDs/esophageal varicies band ings, colonoscopies. Past Anesthesia/Blood Transfusion Reactions: No Reported Reaction Additional Past Anesthesia/Blood Transfusion Reaction / Comment(s): after appendix removed sob Past Psychological History: Anxiety, Depression Additional Psychological History / Comment(s): Pt lives in an apartment alone. Apartment complex has front door ramp and has an elevator. no pets. Sometimes his sister stays with him and cleans his home. He uses a cane to ambulate at times. He drives but currently has no car. He gets to the [facility] by senior bus. He has a nebulizer and a glucometer.pt stated he was getting [facility] home care nurse but has'nt seen them in few days,not sure if they're still coming. Used to work in [employer]. Relates that he's not been a smoker. Denies recreational drug use. His left him many years ago he has adult children that he does not see very often. No experience. No travel history. No animal exposures Smoking Status: Never smoker Past Alcohol Use History: Abuse, Daily Additional Past Alcohol Use History / Comment(s): pt reports normally drinks 3 16oz beers daily. Last drink 12/08/18 Past Drug Use History: None Reported - Past Family History Mother Family Medical History: COPD, CVA/TIA, Dementia Additional Family Medical History / Comment(s): from a stroke Father Family Medical History: Pneumonia Additional Family Medical History / Comment(s): Father of pneumonia when he was close to 80 yrs old. Medications and Allergies Home Medications Medication Instructions Recorded Confirmed Type cloNIDine HCL [Catapres] 0.1 mg PO BID #60 tab 03/26/18 12/12/18 Rx Ferrous Sulfate [Iron (65 MG 325 mg PO DAILY 04/24/18 12/12/18 History Elemental)] Thiamine Mononitrate (Vit B1) 100 mg PO DAILY 06/21/18 12/12/18 History [Vitamin B-1] amLODIPine [Norvasc] 5 mg PO BID 08/25/18 12/12/18 History metFORMIN HCL [Glucophage] 500 mg PO BID 10/19/18 12/12/18 History Sucralfate [Carafate] 1 gm PO AC-TID 30 Days #90 tab 10/24/18 12/12/18 Rx Magnesium Oxide [Mag-Ox] 400 mg PO DAILY #20 tablet 11/01/18 12/12/18 Rx LORazepam [Ativan] 0.5 mg PO BID PRN 3 Days #6 tab 11/04/18 12/12/18 Rx Pantoprazole Sodium [Protonix] 40 mg PO BID #60 tablet.dr 11/04/18 12/12/18 Rx chlordiazePOXIDE HCl [Librium] 25 mg PO QID 3 Days #12 capsule 11/04/18 12/12/18 Rx Multivitamins, Thera [Multivitamin 1 tab PO DAILY 12/12/18 12/12/18 History (formulary)] Allergies Allergy/AdvReac Type Severity Reaction Status Date / Time adhesive tape Allergy Rash/Hives Verified 12/12/18 11:39 latex Allergy Unknown Verified 12/12/18 11:39 lisinopril Allergy EYES Verified 12/12/18 11:39 BURN&ITCH/WEAKNESS egg AdvReac Nausea & Verified 12/12/18 11:39 Vomiting tomato AdvReac Nausea & Verified 12/12/18 11:39 Vomiting & Diarrhea Physical Exam Vitals: Vital Signs Temp Pulse Pulse Resp BP BP Pulse Ox 12/13/18 05:41 98.4 F 103 H 20 138/85 95 12/12/18 21:00 98.5 F 125 H 20 138/83 95 12/12/18 17:53 98.5 F 128 H 20 138/94 96 12/12/18 16:32 98.5 F 129 H 20 149/92 96 12/12/18 13:39 122 H 20 159/102 98 12/12/18 12:30 125 H 22 151/105 97 12/12/18 11:36 98.3 F 124 H 20 167/110 96 Intake and Output 12/12/18 12/13/18 12/13/18 22:59 06:59 14:59 Intake Total 100 160 Balance 100 160 Intake: Amount of Fluid Infused ( 100 ml) Intake, IV Titration 160 Amount Sodium Chloride 0.9% 1, 160 000 ml @ 20 mls/hr IV . Q24H [facility] Rx#:[id number] Other: Voiding Method Toilet Toilet # Voids 1 1 # Bowel Movements 1 Weight 72.575 kg General: well nourished, well developed, NAD. Vitals reviewed Eyes: PERRL, EOMI, conjunctiva normal HENT: normocephalic, mucus membranes moist Neck: supple, no JVD Lungs: normal respiratory effort, no rales. Expiratory wheezing CV: Regular rate and rhythm, no murmur. Peripheral pulses 2+ Abdomen: soft, nondistended, no organomegaly Lymph: no cervical or axillary LAD Skin: warm and diaphoretic Neuro: A&Ox3, normal mood and affect. Fine intention tremor Results CBC & Chem 7: 12/12/18 12:15 12/12/18 12:15 Labs: Abnormal Lab Results - Last 24 Hours (Table) 12/12/18 12/12/18 Range/Units 12:15 12:15 WBC 3.6 L (3.8-10.6) k/uL RBC 3.87 L (4.30-5.90) m/uL Hgb 10.9 L (13.0-17.5) gm/dL Hct 35.0 L (39.0-53.0) % RDW 18.7 H (11.5-15.5) % Plt Count 142 L (150-450) k/uL Lymphocytes # 0.7 L (1.0-4.8) k/uL BUN 7 L (9-20) mg/dL Creatinine 0.59 L (0.66-1.25) mg/dL Glucose 106 H (74-99) mg/dL Thrombosis Risk Factor Assmnt - Choose All That Apply Any of the Below Risk Factors Present?: Yes Each Factor Represents 1 point: Serious lung disease incl. pneumonia (< 1month) Other Risk Factors: Yes Each Risk Factor Represents 2 Points: Age 61-74 years Each Risk Factor Represents 3 Points: History of DVT/PE Thrombosis Risk Factor Assessment Total Risk Factor Score: 6 Thrombosis Risk Factor Assessment Level: High Risk Assessment and Plan (1) Alcoholic cirrhosis of liver Current Visit: Yes Status: Acute Code(s): K70.30 - ALCOHOLIC CIRRHOSIS OF LIVER WITHOUT ASCITES SNOMED Code(s): 321686789 (2) Iron deficiency anemia Current Visit: Yes Status: Acute Code(s): D50.9 - IRON DEFICIENCY ANEMIA, UNSPECIFIED SNOMED Code(s): 45950795 (3) Alcohol withdrawal Current Visit: Yes Status: Acute Code(s): F10.239 - ALCOHOL DEPENDENCE WITH WITHDRAWAL, UNSPECIFIED SNOMED Code(s): 901113591 (4) Fall Current Visit: Yes Status: Acute Code(s): W19.XXXA - UNSPECIFIED FALL, INITIAL ENCOUNTER SNOMED Code(s): 4360303 (5) Alcohol dependence with withdrawal Current Visit: No Status: Acute Code(s): F10.239 - ALCOHOL DEPENDENCE WITH WITHDRAWAL, UNSPECIFIED SNOMED Code(s): 84401581 Plan: 1. Maintain [facility] protocol for alcohol withdrawal. Replete thiamine. Case management and PT/OT consulted 2. Fall. CT and XR negative for fracture. Pain control with tylenol/ibuprofen 3. Anemia. Suspect iron deficiency. Obtain ferritin. Plan to d/c on iron supplementation 4. Cirrhosis. Hx esophageal varices. Anticoagulation contraindicated. Continue protonix
[2018-12-13] MEDS: ONDANSETRON 4 MG/2 ML VIAL IVP PRN (16:11)
[2018-12-13] MEDS: SODIUM CHLORIDE 0.9% 1,000 ML IV SCH (17:17)
[2018-12-13] MEDS: SYMBICORT 160-4.5 MCG INHALER INHALATION SCH (20:03)
[2018-12-14] MEDS: ONDANSETRON 4 MG/2 ML VIAL IVP PRN ×4 (00:21→23:53)
[2018-12-14] MEDS: SYMBICORT 160-4.5 MCG INHALER INHALATION SCH ×2 (08:22→20:33)
[2018-12-14] MEDS: THIAMINE 100 MG TAB PO SCH ×2 (08:24→18:23)
[2018-12-14] MEDS: PANTOPRAZOLE 40 MG TABLET PO SCH ×2 (08:24→18:23)
[2018-12-14] MEDS: MAGNESIUM OXIDE 400 MG TAB PO SCH (08:24)
[2018-12-14] MEDS: amLODIPine 5 MG TAB PO SCH (08:24)
[2018-12-14] MEDS: metFORMIN 500 MG TAB PO SCH ×2 (08:24→20:37)
[2018-12-14] MEDS: IBUPROFEN 400 MG TAB PO PRN (08:32)
[2018-12-14] MEDS ORDERED: MULTIVITAMINS, THERA 1 EACH TAB PO SCH ×2 (12:00→12:01)
--- NOTE | 2018-12-14 12:06 | P.PN ---
Subjective Progress Note Date: 12/14/18 Anders Aguilar is a 63 yo M with PMH significant for alcohol abuse, cirrhosis, esophageal varices, paroxysmal A fib, COPD who presented to [facility] ED after a fall yesterday. He states he was walking down some steps and his cane slipped, he landed on his low back and hit his head on the cement. Pt denies loss of consciousness, headache, nausea, or vomiting. He states he was not drinking at the time of his fall but does typically have a few tall boys daily. He denies chest pain, shortness of breath, or recent illness. On presentation to the ED, vitals stable and hip XR and CT head/neck negative for fracture. Labs show leukopenia, anemia, otherwise unremarkable. He was noted to be in alcohol withdrawal in the ED and was started on CIWA protocol. Today, he endorses shakes and diaphoresis with difficulty sleeping last night. 12/14/2018 maintained on IV fluid hydration,CIWA protocol, improving. Complains of chronic back pain, receiving Tylenol, Motrin. Recently receiving Zofran for nausea. Complains of headache, complains of hiccups, maintained on PPI twice a day. Reports chronic back pain. Shakiness improving. Evaluated by PT/OT with no subacute rehab recommended at discharge.VSS, tachycardia much improved, low 100s. Denies chest pain, palpitations or shortness of breath. Denies li ghtheadedness dizziness or focal deficits. Afebrile. Objective - Vital Signs Vital signs: Vital Signs Temp 98.0 F 12/14/18 05:00 Pulse 102 H 12/14/18 05:00 Resp 18 12/14/18 05:00 BP 138/87 12/14/18 05:00 Pulse Ox 97 12/14/18 05:00 Intake & Output 12/13/18 12/14/18 12/14/18 18:59 06:59 18:59 Intake Total 835 Balance 835 Weight 72.575 kg Intake: Intake, IV Titration 230 Amount Sodium Chloride 0.9% 1, 230 000 ml @ 20 mls/hr IV . Q24H [facility] Rx#:[id number] Oral 605 Other: Voiding Method Toilet Toilet # Voids 2 3 - Exam General: well nourished, well developed, NAD. Eyes: PERRL, EOMI, conjunctiva normal HENT: normocephalic, mucus membranes moist Neck: supple, no JVD Lungs: normal respiratory effort, no rales. Expiratory wheezing CV: Regular rate and rhythm, no murmur. Peripheral pulses 2+ Abdomen: soft, nondistended, no organomegaly Lymph: no cervical or axillary LAD Skin: warm and diaphoretic Neuro: A&Ox3, normal mood and affect. Fine intention tremor - Labs CBC & Chem 7: 12/12/18 12:15 12/12/18 12:15 Assessment and Plan Assessment: (1) Alcoholic cirrhosis of liver Current Visit: Yes Status: Acute Code(s): K70.30 - ALCOHOLIC CIRRHOSIS OF LIVER WITHOUT ASCITES SNOMED Code(s): 691615524 (2) Iron deficiency anemia Current Visit: Yes Status: Acute Code(s): D50.9 - IRON DEFICIENCY ANEMIA, UNSPECIFIED SNOMED Code(s): 48382336 (3) Alcohol withdrawal Current Visit: Yes Status: Acute Code(s): F10.239 - ALCOHOL DEPENDENCE WITH WITHDRAWAL, UNSPECIFIED SNOMED Code(s): 450004364 (4) Fall Current Visit: Yes Status: Acute Code(s): W19.XXXA - UNSPECIFIED FALL, INITIAL ENCOUNTER SNOMED Code(s): 8509440 (5) Alcohol dependence with withdrawal Current Visit: No Status: Acute Code(s): F10.239 - ALCOHOL DEPENDENCE WITH WITHDRAWAL, UNSPECIFIED SNOMED Code(s): 01708416 Plan: Continue current medication regime ,monitoring and symptomatic treatment. Maintain CIWA protocol, thiamine, folic acid and multivitamin. Increase ambulation as tolerated. Encourage oral intake. Discharge planning in progress for tomorrow. The impression and plan of care has been dictated as directed. : I performed a history and examination of this patient, discussed the same with the dictator. I agree with the dictator's note ,documented as a scribe. Any additional findings or plans will be noted.
[2018-12-14] MEDS: FOLIC ACID 1 MG TAB PO SCH (12:41)
[2018-12-14] MEDS: SODIUM CHLORIDE 0.9% 1,000 ML IV SCH (18:25)
[2018-12-15] MEDS: LORazepam 2 MG/ML INJ IV PRN (00:32)
[2018-12-15] MEDS: SYMBICORT 160-4.5 MCG INHALER INHALATION SCH (07:46)
[2018-12-15] MEDS: metFORMIN 500 MG TAB PO SCH (08:00)
[2018-12-15] MEDS: ONDANSETRON 4 MG/2 ML VIAL IVP PRN (08:00)
[2018-12-15] MEDS: amLODIPine 5 MG TAB PO SCH (08:00)
[2018-12-15] MEDS: PANTOPRAZOLE 40 MG TABLET PO SCH (08:00)
[2018-12-15] MEDS: THIAMINE 100 MG TAB PO SCH (08:00)
[2018-12-15] MEDS: MAGNESIUM OXIDE 400 MG TAB PO SCH (08:00)
[2018-12-15] MEDS: IBUPROFEN 400 MG TAB PO PRN (08:04)
[2018-12-15 11:59] VITALS: BP 111/72; PULSE 103; RESP 18; TEMP 98.9
--- NOTE | 2018-12-15 12:15 | P.DS ---
Providers Date of admission: 12/12/18 15:18 Expected date of discharge: 12/15/18 Attending physician: Alexys Marcus MD Primary care physician: Yoon Phillips [facility] Course: Final Diagnoses: (1) Alcoholic cirrhosis of liver Current Visit: Yes Status: Acute Code(s): K70.30 - ALCOHOLIC CIRRHOSIS OF LIVER WITHOUT ASCITES SNOMED Code(s): 762037292 (2) Iron deficiency anemia Current Visit: Yes Status: Acute Code(s): D50.9 - IRON DEFICIENCY ANEMIA, UNSPECIFIED SNOMED Code(s): 36760551 (3) Alcohol withdrawal Current Visit: Yes Status: Acute Code(s): F10.239 - ALCOHOL DEPENDENCE WITH WITHDRAWAL, UNSPECIFIED SNOMED Code(s): 260893533 (4) Fall Current Visit: Yes Status: Acute Code(s): W19.XXXA - UNSPECIFIED FALL, INITIAL ENCOUNTER SNOMED Code(s): 0689955 (5) Alcohol dependence with withdrawal Current Visit: No Status: Acute Code(s): F10.239 - ALCOHOL DEPENDENCE WITH WITHDRAWAL, UNSPECIFIED SNOMED Code(s): 17158450 Hospital course:Anders Aguilar is a 63 yo M with PMH significant for alcohol abuse, cirrhosis, esophageal varices, paroxysmal A fib, COPD who presented to [facility] ED after a fall yesterday. He states he was walking down some steps and his cane slipped, he landed on his low back and hit his head on the cement. Pt denies loss of consciousness, headache, nausea, or vomiting. He states he was not drinking at the time of his fall but does typically have a few tall boys daily. He denies chest pain, shortness of breath, or recent illness. On presentation to the ED, vitals stable and hip XR and CT head/neck negative for fracture. Labs show leukopenia, anemia, otherwise unremarkable. He was noted to be in alcohol withdrawal in the ED and was started on CIWA protocol. Today, he endorses shakes and diaphoresis with difficulty sleeping last night. 12/14/2018 maintained on IV fluid hydration,CIWA protocol, improving. Complains of chronic back pain, receiving Tylenol, Motrin. Recently receiving Zofran for nausea. Complains of headache, complains of hiccups, maintained on PPI twice a day. Reports chronic back pain. Shakiness improving. Evaluated by PT/OT with no subacute rehab recommended at discharge.VSS, tachycardia much improved, low 100s. Denies chest pain, palpitations or shortness of breath. Denies lightheadedness dizziness or focal deficits. Afebrile. Significant clinical improvement. Alcohol cessation reinforced. Patient is being discharged home in a stable condition with guarded prognosis. - Exam General: Alert and oriented 3, NAD. Lungs: normal respiratory effort, bilateral bases diminished, no rhonchi, crackles or wheezes CV: Regular rate and rhythm, no murmur. Peripheral pulses 2+ Abdomen: soft, nondistended, no organomegaly. Positive bowel sounds Neuro: No focal deficits The impression and plan of care has been dictated as directed. : I performed a history and examination of this patient, discussed the same with the dictator. I agree with the dictator's note ,documented as a scribe. Any additional findings or plans will be noted. Type taken: 35 minutes Patient Condition at Discharge: Stable Plan - Discharge Summary Discharge Rx Participant: Yes New Discharge Prescriptions: New Folic Acid 1 mg PO AC-LUNCH #30 tab Continue cloNIDine HCL [Catapres] 0.1 mg PO BID #60 tab Ferrous Sulfate [Iron (65 MG Elemental)] 325 mg PO DAILY amLODIPine [Norvasc] 5 mg PO BID metFORMIN HCL [Glucophage] 500 mg PO BID Sucralfate [Carafate] 1 gm PO AC-TID 30 Days #90 tab Magnesium Oxide [Mag-Ox] 400 mg PO DAILY #20 tablet Pantoprazole Sodium [Protonix] 40 mg PO BID #60 tablet. Multivitaminjonna Thera [Multivitamin (formulary)] 1 tab PO DAILY Thiamine Mononitrate (Vit B1) [Vitamin B-1] 100 mg PO DAILY #0 Discharge Medication List cloNIDine HCL [Catapres] 0.1 mg PO BID #60 tab 03/26/18 [Rx] Ferrous Sulfate [Iron (65 MG Elemental)] 325 mg PO DAILY 04/24/18 [History] amLODIPine [Norvasc] 5 mg PO BID 08/25/18 [History] metFORMIN HCL [Glucophage] 500 mg PO BID 10/19/18 [History] Sucralfate [Carafate] 1 gm PO AC-TID 30 Days #90 tab 10/24/18 [Rx] Magnesium Oxide [Mag-Ox] 400 mg PO DAILY #20 tablet 11/01/18 [Rx] Pantoprazole Sodium [Protonix] 40 mg PO BID #60 tablet. 11/04/18 [Rx] Multivitamins, Thera [Multivitamin (formulary)] 1 tab PO DAILY 12/12/18 [History] Folic Acid 1 mg PO AC-LUNCH #30 tab 12/15/18 [Rx] Thiamine Mononitrate (Vit B1) [Vitamin B-1] 100 mg PO DAILY #0 12/15/18 [Rx] Follow up Appointment(s)/Referral(s): [facility], [NON-STAFF] - 1-2 Days Yoon Phillips DO [Primary Care Provider] - 3 Days Ambulatory/Diagnostic Orders: Complete Blood Count w/diff [LAB.AMB] Time Frame: 3 Days, Location: None Selected Activity/Diet/Wound Care/Special Instructions: No ETOH
[2018-12-15] MEDS ORDERED: HALOPERIDOL 2 MG TAB PO STA (12:53)
[2018-12-15] MEDS: FOLIC ACID 1 MG TAB PO SCH (14:05)
== END 2018-12-15 17:15 | disposition home health service (06) | DRG 897 ==
LOC: EC 11:24 → 3NMEDONC 15:18
PROVIDERS: ADMIT Family Medicine; ATTEND Family Medicine
DX: F10.239 Alcohol dependence with withdrawal, unspecified (principal); K76.6 Portal hypertension; D69.6 Thrombocytopenia, unspecified; I48.0 Paroxysmal atrial fibrillation; M41.9 Scoliosis, unspecified; E55.9 Vitamin D deficiency, unspecified; K70.30 Alcoholic cirrhosis of liver without ascites; D50.9 Iron deficiency anemia, unspecified; D72.819 Decreased white blood cell count, unspecified; E11.9 Type 2 diabetes mellitus without complications; E78.5 Hyperlipidemia, unspecified; F32.9 Major depressive disorder, single episode, unspecified; F41.9 Anxiety disorder, unspecified; G89.29 Other chronic pain; I10 Essential (primary) hypertension; J44.9 Chronic obstructive pulmonary disease, unspecified; K21.9 Gastro-esophageal reflux disease without esophagitis; N42.9 Disorder of prostate, unspecified; M54.9 Dorsalgia, unspecified; R06.6 Hiccough; R51 Headache; H93.19 Tinnitus, unspecified ear; M50.30 Other cervical disc degeneration, unspecified cervical region; M47.9 Spondylosis, unspecified; K57.90 Diverticulosis of intestine, part unspecified, without perforation or abscess without bleeding; M54.31 Sciatica, right side; Z79.84 Long term (current) use of oral hypoglycemic drugs; Z79.899 Other long term (current) drug therapy; Z88.8 Allergy status to other drugs, medicaments and biological substances; Z91.040 Latex allergy status; Z86.73 Personal history of transient ischemic attack (TIA), and cerebral infarction without residual deficits; Z86.711 Personal history of pulmonary embolism; Z85.46 Personal history of malignant neoplasm of prostate; Z91.012 Allergy to eggs; Z91.018 Allergy to other foods; Z90.49 Acquired absence of other specified parts of digestive tract; Z86.14 Personal history of Methicillin resistant Staphylococcus aureus infection; Z87.01 Personal history of pneumonia (recurrent); Z82.5 Family history of asthma and other chronic lower respiratory diseases; Z82.3 Family history of stroke; Z82.0 Family history of epilepsy and other diseases of the nervous system; W10.8XXA Fall (on) (from) other stairs and steps, initial encounter; Y92.9 Unspecified place or not applicable
CPT/HCPCS: 36415; 70450; 71046; 72125; 72170; 80048; 82728; 85025; 85610; 93005; 94640; 96365; 96366; 96372; 96375; 96376; 99285

== ENCOUNTER 2018-12-28 09:05 | Emergency (ER) | payer OTHER ==
[2018-12-28] MEDS ORDERED: SODIUM CHLORIDE 0.9% 1,000 ML IV STA (09:26)
[2018-12-28] MEDS ORDERED: 1: MVI, ADULT NO.4 WITH VIT K 10 ML, THIAMINE 100 MG, FOLIC ACID 1 MG in SODIUM CHLORIDE IV SCH ×4 (09:30)
--- NOTE | 2018-12-28 09:33 | ED ---
Fall HPI - General Chief Complaint: Fall Stated Complaint: FALL Time Seen by Provider: 12/28/18 09:06 Source: patient, EMS, RN notes reviewed, old records reviewed Mode of arrival: EMS - History of Present Illness Initial Comments: Patient is a 63-year-old male moments the emergency department for alcohol intoxication and abuse. Patient reports that he fell today while leaving the bathroom. Patient reports that he ran into his TV stand. Patient states that he hit the right side of his ribs and right forehead. He reports he woke up on the ground. He states he does not know if he lost consciousness or just passed out from drinking. Patient reports that he has had headache. He is not on blood thinners. - Related Data Home Medications Medication Instructions Recorded Confirmed Ferrous Sulfate [Iron (65 MG 325 mg PO DAILY 04/24/18 12/28/18 Elemental)] amLODIPine [Norvasc] 5 mg PO BID 08/25/18 12/28/18 metFORMIN HCL [Glucophage] 500 mg PO BID 10/19/18 12/28/18 Multivitamins, Thera [Multivitamin 1 tab PO DAILY 12/12/18 12/28/18 (formulary)] Previous Rx's Medication Instructions Recorded cloNIDine HCL [Catapres] 0.1 mg PO BID #60 tab 03/26/18 Sucralfate [Carafate] 1 gm PO AC-TID 30 Days #90 tab 10/24/18 Magnesium Oxide [Mag-Ox] 400 mg PO DAILY #20 tablet 11/01/18 Pantoprazole Sodium [Protonix] 40 mg PO BID #60 tablet. 11/04/18 Budesonide-Formot 160-4.5 Mcg 2 puff INHALATION RT-BID #1 inh 12/15/18 [Symbicort 160-4.5 Mcg Inhaler] Folic Acid 1 mg PO AC-LUNCH #30 tab 12/15/18 Thiamine Mononitrate (Vit B1) 100 mg PO DAILY #0 12/15/18 [Vitamin B-1] HYDROcodone/APAP 5-325MG [Cades 1 tab PO Q6HR PRN #10 tab 12/28/18 5-325] Allergies Allergy/AdvReac Type Severity Reaction Status Date / Time adhesive tape Allergy Rash/Hives Verified 12/28/18 09:18 latex Allergy Unknown Verified 12/28/18 09:18 lisinopril Allergy EYES Verified 12/28/18 09:18 BURN&ITCH/WEAKNESS egg AdvReac Nausea & Verified 12/28/18 09:18 Vomiting tomato AdvReac Nausea & Verified 12/28/18 09:18 Vomiting & Diarrhea Review of Systems ROS Statement: Those systems with pertinent positive or pertinent negative responses have been documented in the HPI. ROS Other: All systems not noted in ROS Statement are negative. Past Medical History Past Medical History: Atrial Fibrillation, Cancer, Chest Pain / Angina, COPD, CVA/TIA, Diabetes Mellitus, GERD/Reflux, GI Bleed, Hyperlipidemia, Hypertension, Pneumonia, Prostate Disorder, Pulmonary Embolus (PE) Additional Past Medical History / Comment(s): tachycardia/palpitations likely d/t alcohol withdrawal. hx of Alcoholism, chronic alcoholic cirrhosis with portal hypertension and previous history of upper and lower GI bleeding, e sophageal varices, previous history of childhood seizure which he outgrew not taking any antiepileptic medication-possibly had recent seizure-2018 thought d/t alcohol withdrawal, pulmonary embolism x 2 R lung, TIA, diverticulosis, chronic lower bilateral extremity ankle edema if he walks alot, previous history of septicemia, cervical disc disease with chronic back pain with r sided sciatica, degenerative arthritis involving the lower back, tinnitus, vitamin D deficiency, iron anemia, chronic thrombocytopenia, denies MRSA, C-DIFF -2018, scoliosis, scoliosis. pt had radiation 04/28 for prostate cancer History of Any Multi-Drug Resistant Organisms: C-DIFF, MRSA Date of last positivie culture/infection: n/a MDRO Source:: STOOL Past Surgical History: Appendectomy, Cholecystectomy Additional Past Surgical History / Comment(s): EGDs/esophageal varicies bandings, colonoscopies. Past Anesthesia/Blood Transfusion Reactions: No Reported Reaction Additional Past Anesthesia/Blood Transfusion Reaction / Comment(s): after appendix removed sob Past Psychological History: Anxiety, Depression Smoking Status: Never smoker Past Alcohol Use History: Abuse, Daily Past Drug Use History: None Reported - Past Family History Mother Family Medical History: COPD, CVA/TIA, Dementia Additional Family Medical History / Comment(s): from a stroke Father Family Medical History: Pneumonia Additional Family Medical History / Comment(s): Father of pneumonia when he was close to 80 yrs old. General Exam - General Exam Comments Initial Comments: This is a 63-year-old male. Alert and oriented 3. No significant distress. Patient appears intoxicated. Limitations: no limitations General appearance: alert, in no apparent distress, appears intoxicated Head exam: Present: atraumatic, normocephalic, normal inspection Eye exam: Present: normal appearance, PERRL, EOMI. Absent: scleral icterus, conjunctival injection, periorbital swelling ENT exam: Present: normal exam, mucous membranes moist, other (tender over R scalp and evangelical. Bruising noted above right eye) Neck exam: Present: normal inspection, other (Patient is in c-collar.). Absent: tenderness Respiratory exam: Present: normal lung sounds bilaterally. Absent: respiratory distress, wheezes, rales, rhonchi, stridor Cardiovascular Exam: Present: regular rate, other (Chest tenderness over the right ribs. Evidence of a contusion measuring 2 cm over the left and right rib #10. ) GI/Abdominal exam: Present: soft, normal bowel sounds. Absent: distended, tenderness, guarding, rebound, rigid Extremities exam: Present: normal inspection, full ROM, normal capillary refill. Absent: tenderness, pedal edema, joint swelling, calf tenderness Back exam: Present: normal inspection Neurological exam: Present: alert, oriented X3, CN II-XII intact Psychiatric exam: Present: normal affect, normal mood Skin exam: Present: warm, dry, intact, normal color. Absent: rash Course Vital Signs 12/28/18 12/28/18 12/28/18 09:15 10:14 12:28 Temperature 98.1 F Pulse Rate 105 H 104 H 106 H Respiratory 20 22 22 Rate Blood Pressure 137/92 146/93 138/56 O2 Sat by Pulse 100 96 99 Oximetry 12/28/18 12/28/18 14:00 15:07 Temperature 98.9 F 98.2 F Pulse Rate 108 H 84 Respiratory 16 17 Rate Blood Pressure 161/98 158/89 O2 Sat by Pulse 98 97 Oximetry - Reevaluation(s) Reevaluation #1: 12/28/18 12:40 Patient is reevaluated this time. He initially stated he had no tenderness in his abdomen. No complaints of nausea and increased abdomen pain. CT head and pelvis ordered. Reevaluation #2: 12/28/18 14:[address] Guaman believes that this is a old hemangioma no significant bleeding around this. Patient can be discharged home in stable condition. Medical Decision Making - Medical Decision Making Patient is a 63 year old male with history of alcohol use daily. Patient reportedly fell while walking out of the bathroom striking his head and ribs on a TV stand. Patient reportedly pain in the ground. He arrived via EMS. Patient has some bruising and tenderness over the left and right ribs. Patient's place a c-collar. Patient CT of the brain and C-spine were negative for any acute intracranial process or fractures. Sclerae aren't attempts 3. C- collar is removed. Patient underwent for x-rays for his ribs and chest. He denied abdominal pain at that time. Patient's rib x-ray shows evidence of left ninth and 10th posterior rib fracture. Patient while in ER was given banana bag and IV fluids. Patient labwork was obtained and unremarkable besides elevated alkaline level CCXL. Patient's developed some nausea and vomiting while in emergency Department and stated it started to complain of some abdominal pain. CT abdomen and pelvis was then completed. CT redemonstrates rib fractures, thyromegaly. There is a incidental note of 17 m hyperdense lesion over the spleen. I discussed the case with Dr. Foster he stated this is likely a hemangioma no active bleeding or any further concern. Patient case discussed with Dr. Dominguez. At this time we'll discharge the Patient was short course of pain medicine for rib fractures and Patient was given incentive spirometry. Patient discharged home. - Lab Data Result diagrams: 12/28/18 09:35 12/28/18 09:35 Lab Results 12/28/18 12/28/18 Range/Units 09:35 09:35 WBC 3.6 L (3.8-10.6) k/uL RBC 4.24 L (4.30-5.90) m/uL Hgb 12.1 L (13.0-17.5) gm/dL Hct 38.2 L (39.0-53.0) % MCV 90.1 (80.0-100.0) fL MCH 28.6 (25.0-35.0) pg MCHC 31.7 (31.0-37.0) g/dL RDW 19.4 H (11.5-15.5) % Plt Count 183 (150-450) k/uL Neutrophils % 54 % Lymphocytes % 35 % Monocytes % 7 % Eosinophils % 2 % Basophils % 1 % Neutrophils # 1.9 (1.3-7.7) k/uL Lymphocytes # 1.2 (1.0-4.8) k/uL Monocytes # 0.3 (0-1.0) k/uL Eosinophils # 0.1 (0-0.7) k/uL Basophils # 0.0 (0-0.2) k/uL Hypochromasia Slight Anisocytosis Slight Sodium 145 (137-145) mmol/L Potassium 3.8 (3.5-5.1) mmol/L Chloride 105 (98-107) mmol/L Carbon Dioxide 28 (22-30) mmol/L Anion Gap 12 mmol/L BUN 10 (9-20) mg/dL Creatinine 0.59 L (0.66-1.25) mg/dL Est GFR (CKD-EPI)AfAm >90 (>60 ml/min/1.73 sqM) Est GFR (CKD-EPI)NonAf >90 (>60 ml/min/1.73 sqM) Glucose 115 H (74-99) mg/dL Calcium 8.6 (8.4-10.2) mg/dL Total Bilirubin 0.7 (0.2-1.3) mg/dL AST 137 H (17-59) U/L ALT 59 (21-72) U/L Alkaline Phosphatase 214 H (38-126) U/L Total Protein 7.9 (6.3-8.2) g/dL Albumin 3.8 (3.5-5.0) g/dL Serum Alcohol 240 H* mg/dL - Radiology Data Radiology results: report reviewed CT is negative for acute fracture dislocation and C-spine. No acute cranial hemorrhage mass effect or midline shift is seen. Evidence of a hairline nondisplaced fracture in the left ninth and 10th ribs posterior laterally. Findings just left upper lobe granuloma. Disposition Clinical Impression: Alcohol intoxication, Rib fracture Disposition: HOME SELF-CARE Condition: Good Instructions (If sedation given, give patient instructions): Rib Fracture (ED) Additional Instructions: Patient advised to follow up with her primary care physician. Use incentive spirometer to ensure that he did not develop pneumonia. Patient to take medications as prescribed. Department if any alarming signs or symptoms occur. Patient started to stop drinking alcohol. Prescriptions: HYDROcodone/APAP 5-325MG [Cades 5-325] 1 tab PO Q6HR PRN #10 tab PRN Reason: Pain Is patient prescribed a controlled substance at d/c from ED?: Yes When asked, does pt state using other controlled substances?: No If prescribed controlled substance>3 days was MAPS reviewed?: Prescribed <3 Days If opioid is for acute pain is fill amount 7 days or less?: Yes If Rx opioid, was Start Talking consent form obtained?: Yes Referrals: Yoon Phillips DO [Primary Care Provider] - 1-2 days Time of Disposition: 14:32
[2018-12-28 09:46] LABS: Anisocytosis Slight; Basophils % (A) 1 %; Eosinophils # (A) 0.1 k/uL (0-0.7); Eosinophils % (A) 2 %; HCT 38.2 % (39.0-53.0); HGB 12.1 gm/dL (13.0-17.5); Hypochromasia Slight; Lymphocytes # (A) 1.2 k/uL (1.0-4.8); Lymphocytes % (A) 35 %; MCH 28.6 pg (25.0-35.0); MCHC 31.7 g/dL (31.0-37.0); MCV 90.1 fL (80.0-100.0); Mean Platelet Volume 8.1; Monocytes # (A) 0.3 k/uL (0-1.0); Monocytes % (A) 7 %; Neutrophils # (A) 1.9 k/uL (1.3-7.7); Neutrophils % (A) 54 %; Platelet Count 183 k/uL (150-450); RBC 4.24 m/uL (4.30-5.90); RDW 19.4 % (11.5-15.5); WBC 3.6 k/uL (3.8-10.6)
[2018-12-28 09:56] LABS: ALT 59 U/L (21-72); AST 137 U/L (17-59); African American GFR (CKD) >90 (>60 ml/min/1.73 sqM); Albumin 3.8 g/dL (3.5-5.0); Alkaline Phosphatase 214 U/L (38-126); Anion Gap 12 mmol/L; Blood Urea Nitrogen 10 mg/dL (9-20); Calcium 8.6 mg/dL (8.4-10.2); Carbon Dioxide 28 mmol/L (22-30); Chloride 105 mmol/L (98-107); Glucose 115 mg/dL (74-99); Potassium 3.8 mmol/L (3.5-5.1); Sodium 145 mmol/L (137-145); Total Bilirubin 0.7 mg/dL (0.2-1.3); Total Protein 7.9 g/dL (6.3-8.2)
[2018-12-28 10:02] LABS: Alcohol 240 mg/dL
--- NOTE | 2018-12-28 10:30 | CT ---
EXAMINATION TYPE: CT brain latrice maria DATE OF EXAM: 12/28/2018 COMPARISON: 12/12/18 HISTORY: Pain post fall CT DLP: 1335.8 mGycm Automated exposure control for dose reduction was used. TECHNIQUE: CT scan of the head and cervical spine are performed without contrast. FINDINGS: There is no acute intracranial hemorrhage, mass effect, or midline shift identified. The ventricles and sulci are within normal limits in size. The globes are intact and the visualized sin uses are clear. Cervical spine is visualized in its entirety from C1 through upper thoracic levels and demonstrates s atisfactory alignment without evidence of acute fracture or dislocation. Prevertebral soft tissue ap pears within normal limits. The C1-C2 articulation is unremarkable. Redemonstration of multilevel c ervical spondylosis most severe at C5-6 and C6-7. The space narrowing seen at C3-4. IMPRESSION: 1. There is no acute fracture or dislocation evident in the cervical spine. 2. No acute intracranial hemorrhage, mass effect, or midline shift is seen.
--- NOTE | 2018-12-28 11:23 | XR ---
EXAMINATION TYPE: XR ribs bilat w pa chest xray DATE OF EXAM: 12/28/2018 COMPARISON: 12/12/2018 HISTORY: Pain TECHNIQUE: Frontal view of the chest and 4 views of the ribs were obtained on the right and 4 views o n the left FINDINGS: Degenerative changes spine with scoliotic curvature. No sizable pneumothorax. No consolidat ion. Degree of chronic interstitial lung disease suspected. Calcified granuloma left upper lobe noted . There is a slight deformity of the left ninth and 10th ribs. IMPRESSION: 1. Correlate for hairline nondisplaced fracture left ninth and 10th ribs posterior laterally. 2. Findings suggestive of a left upper lobe granuloma
[2018-12-28] MEDS ORDERED: HYDROcodone/APAP 5-325MG 1 EACH TAB PO STA (12:12)
[2018-12-28] MEDS ORDERED: KETOROLAC 30 MG/ML 1 ML VIAL IVP STA (12:12)
[2018-12-28] MEDS ORDERED: ONDANSETRON 4 MG/2 ML VIAL IVP STA (12:29)
--- NOTE | 2018-12-28 14:01 | CT ---
EXAMINATION TYPE: CT abdomen pelvis w con DATE OF EXAM: 12/28/2018 COMPARISON: 10/08/2008 HISTORY: Fall, Rt sided pain CT DLP: 800.9 mGycm Automated exposure control for dose reduction was used. CONTRAST: CT scan of the abdomen pelvis is performed with IV Contrast, patient injected with 100 mL of Isovue 3 00. FINDINGS- LUNG BASES-subsegmental changes right lung base most typical of atelectasis.. LIVER/GB-postcholecystectomy changes are noted. There is reduced in attenuation and somewhat heteroge neous in incident. Somewhat lobulated margins correlate for hepatocellular disease. Hepatic cirrhosis in the differential diagnosis. PANCREAS- No gross abnormality is seen. SPLEEN-6 mm hyperdensity within the spleen could represent a small hemangioma but is too small to olga racterize. Additional small granuloma noted.. ADRENALS- No gross abnormality is seen. KIDNEYS/BLADDER- no hydronephrosis nephrolithiasis or renal mass. BOWEL-diverticulosis of the colon with no CT evidence for diverticulitis. Small hiatal hernia noted. LYMPH NODES- No greater than 1cm abdominal or pelvic lymph nodes areappreciated. OSSEOUS STRUCTURES-hypertrophic and degenerative changes of the spine. Sclerotic focus in the left fe moral head likely related to bone island. Motion artifact limits assessment fractures of the rib cage . Subtle deformity of the right 10th rib laterally. OTHER- aorta of normal caliber with atherosclerotic changes. Mild ectasia of the left iliac artery. No free fluid. No free air. IMPRESSION- 1. Assessment for rib fractures limited due to motion artifact. There is suspicion for a minimally di splaced fracture involving the lateral margin of the right 10th rib correlate with point tenderness. 2. Hepatomegaly with diffuse heterogeneity throughout the liver which is been reported by previous CT scan correlate for diffuse hepatocellular disease or cirrhosis. 3. There is a less than 1 cm hyperdense enhancing lesion of the spleen not clearly seen on the prior exam. Recommend follow-up ultrasound. 4. Diverticulosis.
[2018-12-28 15:09] VITALS: BP 158/89; PULSE 84; RESP 17; TEMP 98.2
== END 2018-12-28 15:09 | disposition home or self-care (01) ==
LOC: EC 09:05
DX: S22.42XA Multiple fractures of ribs, left side, initial encounter for closed fracture (principal); F10.129 Alcohol abuse with intoxication, unspecified; S00.83XA Contusion of other part of head, initial encounter; R79.89 Other specified abnormal findings of blood chemistry; E01.0 Iodine-deficiency related diffuse (endemic) goiter; D73.89 Other diseases of spleen; I10 Essential (primary) hypertension; E11.9 Type 2 diabetes mellitus without complications; D50.9 Iron deficiency anemia, unspecified; Z88.8 Allergy status to other drugs, medicaments and biological substances; Z91.012 Allergy to eggs; Z91.018 Allergy to other foods; Z91.040 Latex allergy status; Z91.048 Other nonmedicinal substance allergy status; Z79.84 Long term (current) use of oral hypoglycemic drugs; Z79.899 Other long term (current) drug therapy; Z86.73 Personal history of transient ischemic attack (TIA), and cerebral infarction without residual deficits; Z85.46 Personal history of malignant neoplasm of prostate; Z92.3 Personal history of irradiation; Z90.49 Acquired absence of other specified parts of digestive tract; Y90.8 Blood alcohol level of 240 mg/100 ml or more; W01.190A Fall on same level from slipping, tripping and stumbling with subsequent striking against furniture, initial encounter; Y93.01 Activity, walking, marching and hiking; Y92.002 Bathroom of unspecified non-institutional (private) residence as the place of occurrence of the external cause
CPT/HCPCS: 36415; 80053; 85025; 71111; 72125; 70450; 74177; 99285; 96365; 96366 ×2; 96375 ×2; 96361; G0480; J3411; J2405; J1885; Q9967; 80320

== ENCOUNTER 2018-12-28 20:05 | Inpatient (IN) | payer OTHER ==
[2018-12-28] MEDS ORDERED: ONDANSETRON 4 MG/2 ML VIAL IVP STA ×2 (21:05→23:13)
[2018-12-28] MEDS ORDERED: SODIUM CHLORIDE 0.9% 1,000 ML IV STA (21:05)
[2018-12-28] MEDS ORDERED: LORazepam 2 MG/ML INJ IV STA (21:05)
[2018-12-28] MEDS ORDERED: FAMOTIDINE 20 MG/2 ML VIAL IV STA (21:05)
[2018-12-28 21:43] LABS: Glucose,Whole Blood 118 mg/dL (75-99)
[2018-12-28 21:58] LABS: Appearance,Urine Clear (Clear); Bilirubin,Urine Negative (Negative); Blood,Urine Negative (Negative); Color,Urine Light Yellow; Glucose,Urine (UA) Negative (Negative); Ketones,Urine 2+ (Negative); Leukocyte Esterase,Urine Negative (Negative); Nitrite,Urine Negative (Negative); Protein,Urine Trace (Negative); Specific Gravity,Urine 1.018 (1.001-1.035); Urobilinogen,Urine <2.0 mg/dL (<2.0)
[2018-12-28 22:08] LABS: Anisocytosis Slight; Basophils % (A) 1 %; Eosinophils % (A) 1 %; HCT 38.1 % (39.0-53.0); Hypochromasia Slight; Lymphocytes # (A) 0.6 k/uL (1.0-4.8); Lymphocytes % (A) 10 %; MCH 28.6 pg (25.0-35.0); MCHC 31.6 g/dL (31.0-37.0); MCV 90.5 fL (80.0-100.0); Mean Platelet Volume 7.9; Monocytes # (A) 0.4 k/uL (0-1.0); Monocytes % (A) 6 %; Neutrophils # (A) 5.2 k/uL (1.3-7.7); Neutrophils % (A) 83 %; Platelet Count 173 k/uL (150-450); RBC 4.21 m/uL (4.30-5.90); RDW 19.3 % (11.5-15.5); WBC 6.2 k/uL (3.8-10.6)
[2018-12-28 22:18] LABS: INR 1.1 (<1.2); Partial Thromboplastin Time 24.8 sec (22.0-30.0); Prothrombin Time 11.6 sec (9.0-12.0)
[2018-12-28 22:30] LABS: ALT 54 U/L (21-72); AST 155 U/L (17-59); African American GFR (CKD) >90 (>60 ml/min/1.73 sqM); Albumin 4.3 g/dL (3.5-5.0); Alkaline Phosphatase 247 U/L (38-126); Anion Gap 14 mmol/L; Blood Urea Nitrogen 9 mg/dL (9-20); Calcium 8.7 mg/dL (8.4-10.2); Carbon Dioxide 26 mmol/L (22-30); Chloride 97 mmol/L (98-107); Glucose 136 mg/dL (74-99); Magnesium 1.3 mg/dL (1.6-2.3); Non-African American GFR(CKD) >90 (>60 ml/min/1.73 sqM); Potassium 4.2 mmol/L (3.5-5.1); Sodium 137 mmol/L (137-145); Total Bilirubin 1.4 mg/dL (0.2-1.3); Total Protein 8.7 g/dL (6.3-8.2)
--- NOTE | 2018-12-28 22:40 | XR ---
EXAM: XR Chest, 2 Views CLINICAL HISTORY: ITS.REASON XR Reason: Chest Pain TECHNIQUE: Frontal and lateral views of the chest. COMPARISON: Chest and rib radiographs 12/28/2018. FINDINGS: Lungs: Unremarkable. No consolidation. Pleural space: Unremarkable. No pneumothorax. Heart: Unremarkable. No cardiomegaly. Mediastinum: Unremarkable. Bones/joints: Left posterolateral rib fractures are better characterized on comparison radiographs. Degenerative change in the spine. IMPRESSION: 1. No acute cardiopulmonary abnormality. 2. Left posterolateral rib fractures are better characterized on comparison radiographs.
[2018-12-28] MEDS ORDERED: Magnesium Replacement Protocol 1 EACH MISC MISCELLANE PRN (22:50)
[2018-12-28] MEDS ORDERED: THIAMINE 100 MG/ML 2 ML VIAL IM STA (23:23)
[2018-12-28] MEDS ORDERED: LORazepam 2 MG/ML INJ IV PRN ×3 (23:23)
[2018-12-28] MEDS ORDERED: SODIUM CHLORIDE 0.9% 1,000 ML with MVI, ADULT NO.4 WITH VIT K 10 ML, THIAMINE 100 MG, F... IV ONE ×4 (23:29)
[2018-12-28] MEDS: MAGNESIUM SULFATE-D5W PMX 1 GM in DEXTROSE/WATER 1 100ML.BAG IVPB SCH (23:55)
[2018-12-29] MEDS: MAGNESIUM SULFATE-D5W PMX 1 GM in DEXTROSE/WATER 1 100ML.BAG IVPB SCH ×2 (01:04→02:24)
--- NOTE | 2018-12-29 01:58 | ED ---
General Adult HPI - General Source: patient, EMS Mode of arrival: EMS <Shena Vu - Last Filed: 12/29/18 02:52> <Rubin Gomez - Last Filed: 12/29/18 03:48> - General Chief complaint: Nausea/Vomiting/Diarrhea Stated complaint: Nausea, Racing heart Time Seen by Provider: 12/28/18 20:45 - History of Present Illness Initial comments: 63-year-old male patient with history of chronic alcohol abuse, presents to the emergency department today for evaluation of chest pain, vomiting, and feeling unwell. Patient states that he has been vomiting for the last 2 days. Patient did experience a fall this morning, was seen and evaluated for this here. Was diagnosed with rib fractures and discharged. States his chest pain started after the fall. States he has pain with inspiration and occasional shortness of breath. Denies any abdominal pain. Denies any diarrhea or constipation. Denies any hematochezia or melena. He denies any fever or chills at this time. Denies any recent travel or sick contacts. Patient denies any recent rash, back pain, numbness, tingling, hematuria, dysuria, urinary urgency, urinary frequency, headache, visual changes, or any other complaints. States his last alcoholic beverages 5 days ago. (Shena Vu) - Related Data Home Medications Medication Instructions Recorded Confirmed Ferrous Sulfate [Iron (65 MG 325 mg PO DAILY 04/24/18 12/28/18 Elemental)] amLODIPine [Norvasc] 5 mg PO BID 08/25/18 12/28/18 metFORMIN HCL [Glucophage] 500 mg PO BID 10/19/18 12/28/18 Multivitamins, Thera [Multivitamin 1 tab PO DAILY 12/12/18 12/28/18 (formulary)] Previous Rx's Medication Instructions Recorded cloNIDine HCL [Catapres] 0.1 mg PO BID #60 tab 03/26/18 Sucralfate [Carafate] 1 gm PO AC-TID 30 Days #90 tab 10/24/18 Magnesium Oxide [Mag-Ox] 400 mg PO DAILY #20 tablet 11/01/18 Pantoprazole Sodium [Protonix] 40 mg PO BID #60 tablet. 11/04/18 Budesonide-Formot 160-4.5 Mcg 2 puff INHALATION RT-BID #1 inh 12/15/18 [Symbicort 160-4.5 Mcg Inhaler] Folic Acid 1 mg PO AC-LUNCH #30 tab 12/15/18 Thiamine Mononitrate (Vit B1) 100 mg PO DAILY #0 12/15/18 [Vitamin B-1] HYDROcodone/APAP 5-325MG [Anchor 1 tab PO Q6HR PRN #10 tab 12/28/18 5-325] Allergies Allergy/AdvReac Type Severity Reaction Status Date / Time adhesive tape Allergy Rash/Hives Verified 12/28/18 09:18 latex Allergy Unknown Verified 12/28/18 09:18 lisinopril Allergy EYES Verified 12/28/18 09:18 BURN&ITCH/WEAKNESS egg AdvReac Nausea & Verified 12/28/18 09:18 Vomiting tomato AdvReac Nausea & Verified 12/28/18 09:18 Vomiting & Diarrhea Review of Systems ROS Other: All systems not noted in ROS Statement are negative. <Shena Vu - Last Filed: 12/29/18 02:52> ROS Other: All systems not noted in ROS Statement are negative. <Rubin Gomez - Last Filed: 12/29/18 03:48> ROS Statement: Those systems with pertinent positive or pertinent negative responses have been documented in the HPI. Past Medical History Past Medical History: Atrial Fibrillation, Cancer, Chest Pain / Angina, COPD, CVA/TIA, Diabetes Mellitus, GERD/Reflux, GI Bleed, Hyperlipidemia, Hypertension, Pneumonia, Prostate Disorder, Pulmonary Embolus (PE) Additional Past Medical History / Comment(s): tachycardia/palpitations likely d/t alcohol withdrawal. hx of Alcoholism, chronic alcoholic cirrhosis with portal hypertension and previous history of upper and lower GI bleeding, esophageal varices, previous history of childhood seizure which he outgrew not taking any antiepileptic medication-possibly had recent seizure-2018 thought d/t alcohol withdrawal, pulmonary embolism x 2 R lung, TIA, diverticulosis, chronic lower bilateral extremity ankle edema if he walks alot, previous history of septicemia, cervical disc disease with chronic back pain with r sided sciatica, degenerative arthritis involving the lower back, tinnitus, vitamin D deficiency, iron anemia, chronic thrombocytopenia, denies MRSA, C-DIFF -2018, scoliosis, scoliosis. pt had radiation th04/28 for prostate cancer History of Any Multi-Drug Resistant Organisms: C-DIFF, MRSA Date of last positivie culture/infection: n/a MDRO Source:: STOOL Past Surgical History: Appendectomy, Cholecystectomy Additional Past Surgical History / Comment(s): EGDs/esophageal varicies bandings, colonoscopies. Past Anesthesia/Blood Transfusion Reactions: No Reported Reaction Additional Past Anesthesia/Blood Transfusion Reaction / Comment(s): after appendix removed sob Past Psychological History: Anxiety, Depression Smoking Status: Never smoker Past Alcohol Use History: Abuse, Daily Past Drug Use History: None Reported - Past Family History Mother Family Medical History: COPD, CVA/TIA, Dementia Additional Family Medical History / Comment(s): from a stroke Father Family Medical History: Pneumonia Additional Family Medical History / Comment(s): Father of pneumonia when he was close to 80 yrs old. <Shena Vu M - Last Filed: 12/29/18 02:52> General Exam General appearance: alert, in no apparent distress, other (Physical well- developed, well-nourished adult male patient in mild distress. Vital signs upon presentation are temperature 97.5F, pulse 124, respirations 20, blood pressure 173/103, pulse ox 95% on room air.) Eye exam: Present: normal appearance, PERRL, EOMI. Absent: scleral icterus, conjunctival injection, periorbital swelling ENT exam: Present: normal exam, normal oropharynx, mucous membranes moist Respiratory exam: Present: normal lung sounds bilaterally. Absent: respiratory distress, wheezes, rales, rhonchi, stridor Cardiovascular Exam: Present: regular rate, normal rhythm, normal heart sounds. Absent: systolic murmur, diastolic murmur, rubs, gallop, clicks GI/Abdominal exam: Present: soft, normal bowel sounds. Absent: distended, tenderness, guarding, rebound, rigid Neurological exam: Present: alert, oriented X3, CN II-XII intact Psychiatric exam: Present: normal affect, normal mood Skin exam: Present: warm, dry, intact, normal color. Absent: rash <Shena Vu - Last Filed: 12/29/18 02:52> Course Vital Signs 12/28/18 12/28/18 12/28/18 20:09 22:04 23:59 Temperature 97.5 F L 98.1 F Pulse Rate 124 H 120 H 115 H Respiratory 20 20 20 Rate Blood Pressure 173/103 164/102 155/99 O2 Sat by Pulse 95 98 97 Oximetry 12/29/18 12/29/18 12/29/18 00:27 01:16 02:24 Temperature 98.3 F Pulse Rate 75 106 H 105 H Respiratory 18 18 20 Rate Blood Pressure 111/62 155/91 154/87 O2 Sat by Pulse 94 L 98 96 Oximetry EKG Findings - EKG Comments: EKG Findings:: EKG obtained at 2156 shows sinus tachycardia with a ventricular rate of 121, SD interval 148, QRS duration 72, QT 344, QTC 488. No evidence of ST elevation or depression. <Shena Vu - Last Filed: 12/29/18 02:52> Medical Decision Making - Lab Data Result diagrams: 12/28/18 21:54 12/28/18 21:54 - Radiology Data Radiology results: report reviewed, image reviewed <Shena Vu - Last Filed: 12/29/18 02:52> - Lab Data Result diagrams: 12/28/18 21:54 12/28/18 21:54 <Rubin Gomez - Last Filed: 12/29/18 03:48> - Medical Decision Making 63-year-old male patient presented to the emergency department today for evaluation of nausea, vomiting, and chest pain. Physical examination did reveal mild midepigastric tenderness. Labs reviewed and did reveal hemoglobin 12.0. Magnesium 1.3. Alk phos 247, bilirubin 1.4. Urinalysis shows no evidence for infection. Chest x-ray did redemonstrate evidence for left posterior rib fractures. Patient is obviously tremoring, diaphoretic, experiencing symptoms of withdrawal. CIWA scores greater than 17. Patient will be admitted to the hospital for intractable rib pain and alcohol withdrawal. Trauma will be consulted for recent fall with rib fracture. (Shena Vu) I saw this patient in conjunction with the physician assistant engineer. I performed independent history and physical exam. Agree with case management. I phoned Dr. Kauffman and discussed the patient's case. Given that he did have fall than [address] Kauffman states that patient to be admitted under medicine service and she will be the trauma financial planning consultant. Other treatment recommendations incorporated. (Rubin Gomez) - Lab Data Lab Results 12/28/18 12/28/18 12/28/18 Range/Units 21:41 21:42 21:54 WBC 6.2 (3.8-10.6) k/uL RBC 4.21 L (4.30-5.90) m/uL Hgb 12.0 L (13.0-17.5) gm/dL Hct 38.1 L (39.0-53.0) % MCV 90.5 (80.0-100.0) fL MCH 28.6 (25.0-35.0) pg MCHC 31.6 (31.0-37.0) g/dL RDW 19.3 H (11.5-15.5) % Plt Count 173 (150-450) k/uL Neutrophils % 83 % Lymphocytes % 10 % Monocytes % 6 % Eosinophils % 1 % Basophils % 1 % Neutrophils # 5.2 (1.3-7.7) k/uL Lymphocytes # 0.6 L (1.0-4.8) k/uL Monocytes # 0.4 (0-1.0) k/uL Eosinophils # 0.0 (0-0.7) k/uL Basophils # 0.0 (0-0.2) k/uL Manual Slide Review Performed Hypochromasia Slight Anisocytosis Slight PT (9.0-12.0) sec INR (<1.2) APTT (22.0-30.0) sec Sodium (137-145) mmol/L Potassium (3.5-5.1) mmol/L Chloride (98-107) mmol/L Carbon Dioxide (22-30) mmol/L Anion Gap mmol/L BUN (9-20) mg/dL Creatinine (0.66-1.25) mg/dL Est GFR (CKD-EPI)AfAm (>60 ml/min/1.73 sqM) Est GFR (CKD-EPI)NonAf (>60 ml/min/1.73 sqM) Glucose (74-99) mg/dL POC Glucose (mg/dL) 118 H (75-99) mg/dL POC Glu Press Department Manager ID Myriam Farmersea Calcium (8.4-10.2) mg/dL Magnesium (1.6-2.3) mg/dL Total Bilirubin (0.2-1.3) mg/dL AST (17-59) U/L ALT (21-72) U/L Alkaline Phosphatase (38-126) U/L Troponin I (0.000-0.034) ng/mL Total Protein (6.3-8.2) g/dL Albumin (3.5-5.0) g/dL Lipase (23-300) U/L Urine Color Light Yellow Urine Appearance Clear (Clear) Urine pH 7.0 (5.0-8.0) Ur Specific [place] 1.018 (1.001-1.035) Urine Protein Trace H (Negative) Urine Glucose (UA) Negative (Negative) Urine Ketones 2+ H (Negative) Urine Blood Negative (Negative) Urine Nitrite Negative (Negative) Urine Bilirubin Negative (Negative) Urine Urobilinogen <2.0 (<2.0) mg/dL Ur Leukocyte Esterase Negative (Negative) 12/28/18 12/28/18 12/28/18 Range/Units 21:54 21:54 21:54 WBC (3.8-10.6) k/uL RBC (4.30-5.90) m/uL Hgb (13.0-17.5) gm/dL Hct (39.0-53.0) % MCV (80.0-100.0) fL MCH (25.0-35.0) pg MCHC (31.0-37.0) g/dL RDW (11.5-15.5) % Plt Count (150-450) k/uL Neutrophils % % Lymphocytes % % Monocytes % % Eosinophils % % Basophils % % Neutrophils # (1.3-7.7) k/uL Lymphocytes # (1.0-4.8) k/uL Monocytes # (0-1.0) k/uL Eosinophils # (0-0.7) k/uL Basophils # (0-0.2) k/uL Manual Slide Review Hypochromasia Anisocytosis PT 11.6 (9.0-12.0) sec INR 1.1 (<1.2) APTT 24.8 (22.0-30.0) sec Sodium 137 (137-145) mmol/L Potassium 4.2 (3.5-5.1) mmol/L Chloride 97 L (98-107) mmol/L Carbon Dioxide 26 (22-30) mmol/L Anion Gap 14 mmol/L BUN 9 (9-20) mg/dL Creatinine 0.47 L (0.66-1.25) mg/dL Est GFR (CKD-EPI)AfAm >90 (>60 ml/min/1.73 sqM) Est GFR (CKD-EPI)NonAf >90 (>60 ml/min/1.73 sqM) Glucose 136 H (74-99) mg/dL POC Glucose (mg/dL) (75-99) mg/dL POC Glu Press Department Manager ID Calcium 8.7 (8.4-10.2) mg/dL Magnesium 1.3 L (1.6-2.3) mg/dL Total Bilirubin 1.4 H (0.2-1.3) mg/dL AST 155 H (17-59) U/L ALT 54 (21-72) U/L Alkaline Phosphatase 247 H (38-126) U/L Troponin I <0.012 (0.000-0.034) ng/mL Total Protein 8.7 H (6.3-8.2) g/dL Albumin 4.3 (3.5-5.0) g/dL Lipase 112 (23-300) U/L Urine Color Urine Appearance (Clear) Urine pH (5.0-8.0) Ur Specific [place] (1.001-1.035) Urine Protein (Negative) Urine Glucose (UA) (Negative) Urine Ketones (Negative) Urine Blood (Negative) Urine Nitrite (Negative) Urine Bilirubin (Negative) Urine Urobilinogen (<2.0) mg/dL Ur Leukocyte Esterase (Negative) - Radiology Data Two-view x-ray of the chest is obtained. Report was reviewed in its entirety. Impression by Dr. Carmona shows no acute cardiopulmonary abnormality. Left posterior lateral rib fractures or better characterize in comparison radiographs (Shena Vu) Disposition Decision to Admit Reason: Admit from EC Decision Date: 12/29/18 Decision Time: 02:59 <Shena Vu - Last Filed: 12/29/18 02:52> <Rubin Gomez - Last Filed: 12/29/18 03:48> Clinical Impression: Rib fractures, Alcohol withdrawal, Vomiting Disposition: ADMITTED IP TO THIS [facility] Condition: Serious
[2018-12-29] MEDS ORDERED: NALOXONE 0.4 MG/ML 1 ML VIAL IV PRN (02:50)
[2018-12-29] MEDS ORDERED: HYDROmorphone 0.5 MG/0.5 ML SYRINGE IVP PRN (02:50)
[2018-12-29 04:53] LABS: Glucose,Whole Blood 106 mg/dL (75-99)
[2018-12-29 07:03] LABS: Glucose,Whole Blood 105 mg/dL (75-99)
[2018-12-29] MEDS: ONDANSETRON 4 MG/2 ML VIAL IVP PRN ×2 (07:16→16:38)
[2018-12-29 11:48] LABS: Glucose,Whole Blood 102 mg/dL (75-99)
[2018-12-29] MEDS ORDERED: SODIUM CHLORIDE 0.9% 1,000 ML IV ONE (13:18)
[2018-12-29] MEDS: PANTOPRAZOLE 40 MG TABLET PO SCH ×2 (13:24→17:59)
[2018-12-29] MEDS: SUCRALFATE 1 GM TAB PO SCH ×2 (13:24→17:59)
[2018-12-29] MEDS: amLODIPine 5 MG TAB PO SCH ×2 (13:24→20:19)
[2018-12-29] MEDS: MAGNESIUM OXIDE 400 MG TAB PO SCH (13:24)
--- NOTE | 2018-12-29 13:35 | P.GSCN ---
<Arielle Mustafa - Last Filed: 12/29/18 15:24> History of Present Illness Consult date: 12/29/18 Reason for Consult: fall, rib fractures Requesting physician: Shena Vu History of present illness: CHIEF COMPLAINT: Fall, rib fractures HISTORY OF PRESENT ILLNESS: 63-year-old male who presented to the emergency room with a chief complaint of nausea, vomiting, chest pain, and generalized malaise. Patient reports falling yesterday morning after tripping over a blanket on the floor after using the bathroom at his house. He states he landed on his left side and his back landed on the corner of the TV. He was diagnosed with left sided rib fractures in the ER. Patient reports nausea x 24 hour duration. Reports 1 episode of emesis early this morning. He states his rib pain is minimal at this time. PAST MEDICAL HISTORY: See list. PAST SURGICAL HISTORY: See list. MEDICATIONS: See list. ALLERGIES: See list. SOCIAL HISTORY: No illicit drug use. History of alcohol abuse. Reports last drink approximately one week ago. REVIEW OF SYSTEMS: CONSTITUTIONAL: Denies fever or chills. HEENT: Denies blurred vision, vision changes, or eye pain. Denies hemoptysis ENDOCRINE: Denies heat or cold intolerance. CARDIOVASCULAR: Denies chest pain or pressure. RESPIRATORY: No shortness of breath. GASTROINTESTINAL: Denies abdominal pain. Denies nausea or vomiting. NEURO: Denies history of seizures. PSYCH: No depression or suicidal ideation HEMATOLOGIC: Denies bleeding disorders. LYMPHATIC: The patient denies any lumps and bumps around the neck. GENITOURINARY: Denies any blood in urine or increased urinary frequency. MUSCULOSKELETAL: Denies myalgias. Denies joint swelling. Denies decreased range of motion beyond patients baseline. SKIN: Denies pruitis. Denies rash. PHYSICAL EXAM: VITAL SIGNS: Currently stable. GENERAL: Well-developed in no acute distress. HEENT: No sclera icterus. Extraocular movements grossly intact. Moist buccal mucosa. Head is atraumatic, normocephalic. Hears conversational speech. No nasal drainage. NECK: Supple without lymphadenopathy. CHEST: Non-labored respirations and equal bilateral excursions. Mild tenderness upon palpation of left chest wall. Small quarter size bruise noted to left anterior chest wall. CARDIOVASCULAR: Regular rate with regular rhythm. Palpable 2+ radial pulses. ABDOMEN: Soft. Nondistended. Nontender. MUSCULOSKELETAL: No clubbing, cyanosis or edema. NEUROLOGIC: No focal or lateralizing signs. Cranial nerves II through XII grossly intact. PSYCH: Appropriate affect. Alert and oriented to person, place and time. SKIN: Well perfused. Good skin turgor. LABORATORY DATA: Most recent laboratory data reveals white count 6.2. Hemoglobin 12.0. Sodium 137. Potassium 4.2. BUN 9. Creatinine 0.47. Magnesium 1.3. Total bilirubin 1.4. AST 155. ALT 54. Alkaline phosphatase 247. IMAGING: Chest x-ray: No acute cardiopulmonary abnormality. Left posterolateral rib fractures visualized ASSESSMENT: 1. Left sided rib fractures, s/p fall 2. History of ETOH abuse, last drink 1 week ago 3. Nausea 4. Hypomagnesemia 5. History of appendectomy and cholecystectomy 6. History of esophageal varices requiring banding PLAN: 1. 1 L normal saline bolus. Continue IV fluids at 100 mL an hour 2. Clear liquid diet. Continue antiemetics as needed 3. Lidoderm patches. Resume home [place] 4. Incentive spirometry 5. Will obtain CT chest with IV contrast Nurse practitioner note has been reviewed by physician. Signing provider agrees with the documented findings, assessment, and plan of care. Past Medical History Past Medical History: Atrial Fibrillation, Cancer, Chest Pain / Angina, COPD, CVA/TIA, Diabetes Mellitus, GERD/Reflux, GI Bleed, Hyperlipidemia, Hypertension, Pneumonia, Prostate Disorder, Pulmonary Embolus (PE) Additional Past Medical History / Comment(s): tachycardia/palpitations likely d/t alcohol withdrawal. hx of Alcoholism, chronic alcoholic cirrhosis with portal hypertension and previous history of upper and lower GI bleeding, esophageal varices, previous history of childhood seizure which he outgrew not taking any antiepileptic medication-possibly had recent seizure-2018 thought d/t alcohol withdrawal, pulmonary embolism x 2 R lung, TIA, diverticulosis, chronic lower bilateral extremity ankle edema if he walks alot, previous history of septicemia, cervical disc disease with chronic back pain with r sided sciatica, degenerative arthritis involving the lower back, tinnitus, vitamin D deficiency, iron anemia, chronic thrombocytopenia, denies MRSA, C-DIFF -2018, scoliosis, scoliosis. pt had radiation 04/28 for prostate cancer History of Any Multi-Drug Resistant Organisms: C-DIFF, MRSA Year Discovered:: n/a MDRO Source:: STOOL Past Surgical History: Appendectomy, Cholecystectomy Additional Past Surgical History / Comment(s): EGDs/esophageal varicies bandings, colonoscopies. Past Anesthesia/Blood Transfusion Reactions: No Reported Reaction Additional Past Anesthesia/Blood Transfusion Reaction / Comm: after appendix removed sob Past Psychological History: Anxiety, Depression Additional Psychological History / Comment(s): Pt lives in an apartment alone. Apartment complex has front door ramp and has an elevator. no pets. Sometimes his sister stays with him and cleans his home. He uses a cane to ambulate at times. He drives but currently has no car. He gets to [facility] by [employer]. He has a nebulizer and a glucometer.pt stated he was getting [facility] home care nurse but has'nt seen them in few days,not sure if they're still coming. Used to work in [employer]. Relates that he's not been a smoker. Denies recreational drug use. His left him many years ago he has adult children that he does not see very often. No experience. No travel history. No animal exposures Smoking Status: Never smoker Past Alcohol Use History: Abuse, Daily Additional Past Alcohol Use History / Comment(s): pt reports normally drinks 3 16oz beers daily. Last drink 12/25/18 Past Drug Use History: None Reported - Past Family History Mother Family Medical History: COPD, CVA/TIA, Dementia Additional Family Medical History / Comment(s): from a stroke Father Family Medical History: Pneumonia Additional Family Medical History / Comment(s): Father of pneumonia when he was close to 80 yrs old. Medications and Allergies Home Medications Medication Instructions Recorded Confirmed Type cloNIDine HCL [Catapres] 0.1 mg PO BID #60 tab 03/26/18 12/29/18 Rx Ferrous Sulfate [Iron (65 MG 325 mg PO DAILY 04/24/18 12/29/18 History Elemental)] amLODIPine [Norvasc] 5 mg PO BID 08/25/18 12/29/18 History metFORMIN HCL [Glucophage] 500 mg PO BID 10/19/18 12/29/18 History Sucralfate [Carafate] 1 gm PO AC-TID 30 Days #90 tab 10/24/18 12/29/18 Rx Magnesium Oxide [Mag-Ox] 400 mg PO DAILY #20 tablet 11/01/18 12/29/18 Rx Pantoprazole Sodium [Protonix] 40 mg PO BID #60 tablet. 11/04/18 12/29/18 Rx Multivitamins, Thera [Multivitamin 1 tab PO DAILY 12/12/18 12/29/18 History (formulary)] Budesonide-Formot 160-4.5 Mcg 2 puff INHALATION RT-BID #1 inh 12/15/18 12/29/18 Rx [Symbicort 160-4.5 Mcg Inhaler] Folic Acid 1 mg PO AC-LUNCH #30 tab 12/15/18 12/29/18 Rx HYDROcodone/APAP 5-325MG [Eugene 1 tab PO Q6HR PRN #10 tab 12/28/18 12/29/18 Rx 5-325] Thiamine Mononitrate (Vit B1) 100 mg PO DAILY@1200 12/29/18 12/29/18 History [Vitamin B-1] Allergies Allergy/AdvReac Type Severity Reaction Status Date / Time adhesive tape Allergy Rash/Hives Verified 12/29/18 07:44 latex Allergy Unknown Verified 12/29/18 07:44 lisinopril Allergy EYES Verified 12/29/18 07:44 BURN&ITCH/WEAKNESS egg AdvReac Nausea & Verified 12/29/18 07:44 Vomiting tomato AdvReac Nausea & Verified 12/29/18 07:44 Vomiting & Diarrhea Surgical - Exam Vital Signs Temp Pulse Resp BP Pulse Ox 97.5 F L 124 H 20 173/103 95 12/28/18 20:09 12/28/18 20:09 12/28/18 20:09 12/28/18 20:09 12/28/18 20:09 Results - Labs 12/28/18 21:54 12/28/18 21:54 Abnormal Lab Results - Last 24 Hours (Table) 12/28/18 12/28/18 12/28/18 Range/Units 21:41 21:42 21:54 RBC 4.21 L (4.30-5.90) m/uL Hgb 12.0 L (13.0-17.5) gm/dL Hct 38.1 L (39.0-53.0) % RDW 19.3 H (11.5-15.5) % Lymphocytes # 0.6 L (1.0-4.8) k/uL Chloride (98-107) mmol/L Creatinine (0.66-1.25) mg/dL Glucose (74-99) mg/dL POC Glucose (mg/dL) 118 H (75-99) mg/dL Magnesium (1.6-2.3) mg/dL Total Bilirubin (0.2-1.3) mg/dL AST (17-59) U/L Alkaline Phosphatase (38-126) U/L Total Protein (6.3-8.2) g/dL Urine Protein Trace H (Negative) Urine Ketones 2+ H (Negative) 12/28/18 12/29/18 12/29/18 Range/Units 21:54 04:49 06:57 RBC (4.30-5.90) m/uL Hgb (13.0-17.5) gm/dL Hct (39.0-53.0) % RDW (11.5-15.5) % Lymphocytes # (1.0-4.8) k/uL Chloride 97 L (98-107) mmol/L Creatinine 0.47 L (0.66-1.25) mg/dL Glucose 136 H (74-99) mg/dL POC Glucose (mg/dL) 106 H 105 H (75-99) mg/dL Magnesium 1.3 L (1.6-2.3) mg/dL Total Bilirubin 1.4 H (0.2-1.3) mg/dL AST 155 H (17-59) U/L Alkaline Phosphatase 247 H (38-126) U/L Total Protein 8.7 H (6.3-8.2) g/dL Urine Protein (Negative) Urine Ketones (Negative) 12/29/18 Range/Units 11:46 RBC (4.30-5.90) m/uL Hgb (13.0-17.5) gm/dL Hct (39.0-53.0) % RDW (11.5-15.5) % Lymphocytes # (1.0-4.8) k/uL Chloride (98-107) mmol/L Creatinine (0.66-1.25) mg/dL Glucose (74-99) mg/dL POC Glucose (mg/dL) 102 H (75-99) mg/dL Magnesium (1.6-2.3) mg/dL Total Bilirubin (0.2-1.3) mg/dL AST (17-59) U/L Alkaline Phosphatase (38-126) U/L Total Protein (6.3-8.2) g/dL Urine Protein (Negative) Urine Ketones (Negative) Diabetes panel 12/28/18 Range/Units 21:54 Sodium 137 (137-145) mmol/L Potassium 4.2 (3.5-5.1) mmol/L Chloride 97 L (98-107) mmol/L Carbon Dioxide 26 (22-30) mmol/L BUN 9 (9-20) mg/dL Creatinine 0.47 L (0.66-1.25) mg/dL Glucose 136 H (74-99) mg/dL Calcium 8.7 (8.4-10.2) mg/dL AST 155 H (17-59) U/L ALT 54 (21-72) U/L Alkaline Phosphatase 247 H (38-126) U/L Total Protein 8.7 H (6.3-8.2) g/dL Albumin 4.3 (3.5-5.0) g/dL Calcium panel 12/28/18 Range/Units 21:54 Calcium 8.7 (8.4-10.2) mg/dL Albumin 4.3 (3.5-5.0) g/dL Pituitary panel 12/28/18 Range/Units 21:54 Sodium 137 (137-145) mmol/L Potassium 4.2 (3.5-5.1) mmol/L Chloride 97 L (98-107) mmol/L Carbon Dioxide 26 (22-30) mmol/L BUN 9 (9-20) mg/dL Creatinine 0.47 L (0.66-1.25) mg/dL Glucose 136 H (74-99) mg/dL Calcium 8.7 (8.4-10.2) mg/dL Adrenal panel 12/28/18 Range/Units 21:54 Sodium 137 (137-145) mmol/L Potassium 4.2 (3.5-5.1) mmol/L Chloride 97 L (98-107) mmol/L Carbon Dioxide 26 (22-30) mmol/L BUN 9 (9-20) mg/dL Creatinine 0.47 L (0.66-1.25) mg/dL Glucose 136 H (74-99) mg/dL Calcium 8.7 (8.4-10.2) mg/dL Total Bilirubin 1.4 H (0.2-1.3) mg/dL AST 155 H (17-59) U/L ALT 54 (21-72) U/L Alkaline Phosphatase 247 H (38-126) U/L Total Protein 8.7 H (6.3-8.2) g/dL Albumin 4.3 (3.5-5.0) g/dL <JamariAngela N - Last Filed: 12/29/18 17:24> History of Present Illness History of present illness: Patient seen and evaluated. In fact, patient reports mostly nausea and vomiting as a reason for his admission. He has minimal complaints regarding left-sided rib fractures. Separately also complains of right back pain and right-sided pain. He has previous history of alcohol use with admission for alcohol withdrawal. Recommend CT of the chest for completion of previous workup. No surgical i ntervention needed. IV fluids to address dehydration including correction of low magnesium Surgical - Exam Vital Signs Temp Pulse Resp BP Pulse Ox 97.5 F L 124 H 20 173/103 95 12/28/18 20:09 12/28/18 20:09 12/28/18 20:09 12/28/18 20:09 12/28/18 20:09 Results - Labs 12/28/18 21:54 12/28/18 21:54 Abnormal Lab Results - Last 24 Hours (Table) 12/28/18 12/28/18 12/28/18 Range/Units 21:41 21:42 21:54 RBC 4.21 L (4.30-5.90) m/uL Hgb 12.0 L (13.0-17.5) gm/dL Hct 38.1 L (39.0-53.0) % RDW 19.3 H (11.5-15.5) % Lymphocytes # 0.6 L (1.0-4.8) k/uL Chloride (98-107) mmol/L Creatinine (0.66-1.25) mg/dL Glucose (74-99) mg/dL POC Glucose (mg/dL) 118 H (75-99) mg/dL Magnesium (1.6-2.3) mg/dL Total Bilirubin (0.2-1.3) mg/dL AST (17-59) U/L Alkaline Phosphatase (38-126) U/L Total Protein (6.3-8.2) g/dL Urine Protein Trace H (Negative) Urine Ketones 2+ H (Negative) 12/28/18 12/29/18 12/29/18 Range/Units 21:54 04:49 06:57 RBC (4.30-5.90) m/uL Hgb (13.0-17.5) gm/dL Hct (39.0-53.0) % RDW (11.5-15.5) % Lymphocytes # (1.0-4.8) k/uL Chloride 97 L (98-107) mmol/L Creatinine 0.47 L (0.66-1.25) mg/dL Glucose 136 H (74-99) mg/dL POC Glucose (mg/dL) 106 H 105 H (75-99) mg/dL Magnesium 1.3 L (1.6-2.3) mg/dL Total Bilirubin 1.4 H (0.2-1.3) mg/dL AST 155 H (17-59) U/L Alkaline Phosphatase 247 H (38-126) U/L Total Protein 8.7 H (6.3-8.2) g/dL Urine Protein (Negative) Urine Ketones (Negative) 12/29/18 12/29/18 Range/Units 11:46 16:56 RBC (4.30-5.90) m/uL Hgb (13.0-17.5) gm/dL Hct (39.0-53.0) % RDW (11.5-15.5) % Lymphocytes # (1.0-4.8) k/uL Chloride (98-107) mmol/L Creatinine (0.66-1.25) mg/dL Glucose (74-99) mg/dL POC Glucose (mg/dL) 102 H 126 H (75-99) mg/dL Magnesium (1.6-2.3) mg/dL Total Bilirubin (0.2-1.3) mg/dL AST (17-59) U/L Alkaline Phosphatase (38-126) U/L Total Protein (6.3-8.2) g/dL Urine Protein (Negative) Urine Ketones (Negative) Diabetes panel 12/28/18 Range/Units 21:54 Sodium 137 (137-145) mmol/L Potassium 4.2 (3.5-5.1) mmol/L Chloride 97 L (98-107) mmol/L Carbon Dioxide 26 (22-30) mmol/L BUN 9 (9-20) mg/dL Creatinine 0.47 L (0.66-1.25) mg/dL Glucose 136 H (74-99) mg/dL Calcium 8.7 (8.4-10.2) mg/dL AST 155 H (17-59) U/L ALT 54 (21-72) U/L Alkaline Phosphatase 247 H (38-126) U/L Total Protein 8.7 H (6.3-8.2) g/dL Albumin 4.3 (3.5-5.0) g/dL Calcium panel 12/28/18 Range/Units 21:54 Calcium 8.7 (8.4-10.2) mg/dL Albumin 4.3 (3.5-5.0) g/dL Pituitary panel 12/28/18 Range/Units 21:54 Sodium 137 (137-145) mmol/L Potassium 4.2 (3.5-5.1) mmol/L Chloride 97 L (98-107) mmol/L Carbon Dioxide 26 (22-30) mmol/L BUN 9 (9-20) mg/dL Creatinine 0.47 L (0.66-1.25) mg/dL Glucose 136 H (74-99) mg/dL Calcium 8.7 (8.4-10.2) mg/dL Adrenal panel 12/28/18 Range/Units 21:54 Sodium 137 (137-145) mmol/L Potassium 4.2 (3.5-5.1) mmol/L Chloride 97 L (98-107) mmol/L Carbon Dioxide 26 (22-30) mmol/L BUN 9 (9-20) mg/dL Creatinine 0.47 L (0.66-1.25) mg/dL Glucose 136 H (74-99) mg/dL Calcium 8.7 (8.4-10.2) mg/dL Total Bilirubin 1.4 H (0.2-1.3) mg/dL AST 155 H (17-59) U/L ALT 54 (21-72) U/L Alkaline Phosphatase 247 H (38-126) U/L Total Protein 8.7 H (6.3-8.2) g/dL Albumin 4.3 (3.5-5.0) g/dL
[2018-12-29] MEDS ORDERED: RX INFO: IV CONTRAST WAS GIVEN 1 EACH MISC MISCELLANE PRN (13:50)
[2018-12-29] MEDS: LIDOCAINE 5% PATCH TOPICAL SCH (15:22)
[2018-12-29] MEDS: SODIUM CHLORIDE 0.9% 1,000 ML IV SCH ×2 (15:34→23:05)
--- NOTE | 2018-12-29 16:10 | CT ---
EXAMINATION TYPE: CT chest w con DATE OF EXAM: 12/29/2018 COMPARISON: Chest x-ray dated 12/28/[address] of the abdomen and pelvis with contrast dated from . HISTORY: Chest pain, known left rib fractures CT DLP: 294 mGycm Automated exposure control for dose reduction was used. CONTRAST: CT scan of the chest is performed with IV Contrast, patient injected with 100 mL of Isovue 300. FINDINGS: LUNGS: Redemonstration of a few peripherally located chronic interstitial changes with stable pleural -based nodule along the posterior lateral left lower lobe. Otherwise, the lungs are grossly clear, th ere is no concerning parenchymal mass or nodule identified. There is no pleural effusion or pneumot horax seen. The tracheobronchial tree is patent. MEDIASTINUM: There are no greater than 1 cm hilar or mediastinal lymph nodes. No pericardial effusi on is seen. OTHER: Redemonstration of left ninth and 10th posterior lateral rib fractures seen on image 41 and 50 . Redemonstration of chronic compression deformity in the T2 vertebral body. Multilevel degenerative changes throughout the thoracic spine. Findings in the upper abdomen are similar when compared to rec ent CT of the abdomen and pelvis with contrast. IMPRESSION: Scattered chronic interstitial changes in the left lung. Redemonstration of posterior lateral nondisplaced left rib 9th and 10th fractures on recent rib serie s.
[2018-12-29 16:58] LABS: Glucose,Whole Blood 126 mg/dL (75-99)
[2018-12-29] MEDS: metFORMIN 500 MG TAB PO SCH (17:30)
[2018-12-29] MEDS: THIAMINE 100 MG TAB PO SCH ×2 (17:56→17:59)
[2018-12-29] MEDS: ONDANSETRON 4 MG/2 ML VIAL IVP SCH ×2 (17:57→23:06)
[2018-12-29] MEDS: HYDROcodone/APAP 5-325MG 1 EACH TAB PO PRN (19:28)
[2018-12-29] MEDS: SYMBICORT 160-4.5 MCG INHALER INHALATION SCH (20:11)
[2018-12-29] MEDS: cloNIDine HCL 0.1 MG TAB PO SCH (20:19)
--- NOTE | 2018-12-29 20:53 | P.HPIM ---
History of Present Illness H&P Date: 12/29/18 Anders Aguilar is a 63 yo M with PMH significant for alcohol abuse, COPD, HTN who presented to the ED complaining of generalized malaise, nausea, and rib pain after a fall at home. He states he woke up yesterday and while getting out of bed tripped on the carpet and fell backwards. He landed on his lateral ribs, did not hit his head or lose consciousness. Since then he complains of pain with inspiration, cough and movement. Pt states that he usually drinks "a few" tall boys every night but last drink was a week ago. In the ED vital stable, labs unremarkable except for hgb 12, CXR with L posterolateral rib fracture. Currently he complains of rib pain with inspiration as well as diaphoresis, i nsomnia and 'the shakes' which he attributes to alcohol withdrawal. Review of Systems All systems: negative Constitutional: Denies chills, Denies fever Eyes: denies blurred vision, denies pain Ears, nose, mouth and throat: Denies headache, Denies sore throat Cardiovascular: Reports as per HPI, Reports chest pain, Denies dyspnea on exertion, Denies shortness of breath Respiratory: Denies cough Gastrointestinal: Denies abdominal pain, Denies diarrhea, Denies nausea, Denies vomiting Musculoskeletal: Denies myalgias Integumentary: Denies pruritus, Denies rash Neurological: Reports tremors, Denies numbness, Denies weakness Psychiatric: Denies anxiety, Denies depression Endocrine: Denies fatigue, Denies weight change Past Medical History Past Medical History: Atrial Fibrillation, Cancer, Chest Pain / Angina, COPD, CVA/TIA, Diabetes Mellitus, GERD/Reflux, GI Bleed, Hyperlipidemia, Hypertension, Pneumonia, Prostate Disorder, Pulmonary Embolus (PE) Additional Past Medical History / Comment(s): tachycardia/palpitations likely d/t alcohol withdrawal. hx of Alcoholism, chronic alcoholic cirrhosis with portal hypertension and previous history of upper and lower GI bleeding, esophageal varices, previous history of childhood seizure which he outgrew not taking any antiepileptic medication-possibly had recent seizure-2018 thought d/t alcohol withdrawal, pulmonary embolism x 2 R lung, TIA, diverticulosis, chronic lower bilateral extremity ankle edema if he walks alot, previous history of septicemia, cervical disc disease with chronic back pain with r sided sciatica, degenerative arthritis involving the lower back, tinnitus, vitamin D deficiency, iron anemia, chronic thrombocytopenia, denies MRSA, C-DIFF , scoliosis, scoliosis. pt had radiation 04/28 for prostate cancer History of Any Multi-Drug Resistant Organisms: C-DIFF, MRSA Date of last positivie culture/infection: n/a MDRO Source:: STOOL Past Surgical History: Appendectomy, Cholecystectomy Additional Past Surgical History / Comment(s): EGDs/esophageal varicies bandings, colonoscopies. Past Anesthesia/Blood Transfusion Reactions: No Reported Reaction Additional Past Anesthesia/Blood Transfusion Reaction / Comment(s): after appendix removed sob Past Psychological History: Anxiety, Depression Additional Psychological History / Comment(s): Pt lives in an apartment alone. Apartment complex has front door ramp and has an elevator. no pets. Sometimes his sister stays with him and cleans his home. He uses a cane to ambulate at times. He drives but currently has no car. He gets to [facility] by [employer] bus. He has a nebulizer and a glucometer.pt stated he was getting [facility] home care nurse but has'nt seen them in few days,not sure if they're still coming. 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 Relates that he's not been a smoker. Denies recreational drug use. His left him many years ago he has adult children that he does not see very often. No experience. No travel history. No animal exposures Smoking Status: Never smoker Past Alcohol Use History: Abuse, Daily Additional Past Alcohol Use History / Comment(s): pt reports normally drinks 3 16oz beers daily. Last drink 12/25/18 Past Drug Use History: None Reported - Past Family History Mother Family Medical History: COPD, CVA/TIA, Dementia Additional Family Medical History / Comment(s): from a stroke Father Family Medical History: Pneumonia Additional Family Medical History / Comment(s): Father of pneumonia when he was close to 80 yrs old. Medications and Allergies Home Medications Medication Instructions Recorded Confirmed Type cloNIDine HCL [Catapres] 0.1 mg PO BID #60 tab 03/26/18 12/29/18 Rx Ferrous Sulfate [Iron (65 MG 325 mg PO DAILY 04/24/18 12/29/18 History Elemental)] amLODIPine [Norvasc] 5 mg PO BID 08/25/18 12/29/18 History metFORMIN HCL [Glucophage] 500 mg PO BID 10/19/18 12/29/18 History Sucralfate [Carafate] 1 gm PO AC-TID 30 Days #90 tab 10/24/18 12/29/18 Rx Magnesium Oxide [Mag-Ox] 400 mg PO DAILY #20 tablet 11/01/18 12/29/18 Rx Pantoprazole Sodium [Protonix] 40 mg PO BID #60 tablet. 11/04/18 12/29/18 Rx Multivitamins, Thera [Multivitamin 1 tab PO DAILY 12/12/18 12/29/18 History (formulary)] Budesonide-Formot 160-4.5 Mcg 2 puff INHALATION RT-BID #1 inh 12/15/18 12/29/18 Rx [Symbicort 160-4.5 Mcg Inhaler] Folic Acid 1 mg PO AC-LUNCH #30 tab 12/15/18 12/29/18 Rx HYDROcodone/APAP 5-325MG [[place] 1 tab PO Q6HR PRN #10 tab 12/28/18 12/29/18 Rx 5-325] Thiamine Mononitrate (Vit B1) 100 mg PO DAILY@1200 12/29/18 12/29/18 History [Vitamin B-1] Allergies Allergy/AdvReac Type Severity Reaction Status Date / Time adhesive tape Allergy Rash/Hives Verified 12/29/18 07:44 latex Allergy Unknown Verified 12/29/18 07:44 lisinopril Allergy EYES Verified 12/29/18 07:44 BURN&ITCH/WEAKNESS egg AdvReac Nausea & Verified 12/29/18 07:44 Vomiting tomato AdvReac Nausea & Verified 12/29/18 07:44 Vomiting & Diarrhea Physical Exam Vitals: Vital Signs Temp Pulse Pulse Pulse Resp BP BP 12/29/18 20:12 12/29/18 19:19 98.7 F 95 16 12/29/18 16:00 114 H 14 12/29/18 15:00 98.5 F 114 H 14 137/86 12/29/18 07:42 110 H 17 12/29/18 07:00 97.9 F 126 H 16 116/70 12/29/18 04:32 98.0 F 110 H 17 149/104 12/29/18 04:24 86 20 157/94 12/29/18 02:24 105 H 20 154/87 12/29/18 01:16 106 H 18 155/91 12/29/18 00:27 98.3 F 75 18 111/62 12/28/18 23:59 98.1 F 115 H 20 155/99 12/28/18 22:04 120 H 20 164/102 BP Pulse Ox 12/29/18 20:12 98 12/29/18 19:19 134/84 95 12/29/18 16:00 12/29/18 15:00 96 12/29/18 07:42 12/29/18 07:00 92 L 12/29/18 04:32 97 12/29/18 04:24 96 12/29/18 02:24 96 12/29/18 01:16 98 12/29/18 00:27 94 L 12/28/18 23:59 97 12/28/18 22:04 98 Intake and Output 12/29/18 12/29/18 12/29/18 06:59 14:59 22:59 Intake Total 1600 300 Balance 1600 300 Intake: Amount of Fluid Infused ( 1600 ml) Intake, IV Titration 300 Amount Sodium Chloride 0.9% 1, 300 000 ml @ 100 mls/hr IV . Q10H7M ONE with Mvi, Adult No.4 with Vit K 10 ml with Thiamine 100 mg with Folic Acid 1 mg Rx#: [id number] Other: Voiding Method Toilet Toilet Toilet # Voids 1 Gen: alert, well developed, NAD. Vitals reviewed HEENT: normocephalic atraumatic. TMs clear. PERRLA. Neck: supple, no thyromegaly or JVD CV: RRR, no murmur, pulses 2+ Lungs: normal effort, clear throughout Abd: soft, nontender, no organomegaly Lymph: no cervical or axillary LAD Skin: warm and diaphoretic Neuro: AAOx3, no focal deficits, fine intention tremor Results CBC & Chem 7: 12/28/18 21:54 12/28/18 21:54 Labs: Abnormal Lab Results - Last 24 Hours (Table) 12/28/18 12/28/18 12/28/18 Range/Units 21:41 21:42 21:54 RBC 4.21 L (4.30-5.90) m/uL Hgb 12.0 L (13.0-17.5) gm/dL Hct 38.1 L (39.0-53.0) % RDW 19.3 H (11.5-15.5) % Lymphocytes # 0.6 L (1.0-4.8) k/uL Chloride (98-107) mmol/L Creatinine (0.66-1.25) mg/dL Glucose (74-99) mg/dL POC Glucose (mg/dL) 118 H (75-99) mg/dL Magnesium (1.6-2.3) mg/dL Total Bilirubin (0.2-1.3) mg/dL AST (17-59) U/L Alkaline Phosphatase (38-126) U/L Total Protein (6.3-8.2) g/dL Urine Protein Trace H (Negative) Urine Ketones 2+ H (Negative) 12/28/18 12/29/18 12/29/18 Range/Units 21:54 04:49 06:57 RBC (4.30-5.90) m/uL Hgb (13.0-17.5) gm/dL Hct (39.0-53.0) % RDW (11.5-15.5) % Lymphocytes # (1.0-4.8) k/uL Chloride 97 L (98-107) mmol/L Creatinine 0.47 L (0.66-1.25) mg/dL Glucose 136 H (74-99) mg/dL POC Glucose (mg/dL) 106 H 105 H (75-99) mg/dL Magnesium 1.3 L (1.6-2.3) mg/dL Total Bilirubin 1.4 H (0.2-1.3) mg/dL AST 155 H (17-59) U/L Alkaline Phosphatase 247 H (38-126) U/L Total Protein 8.7 H (6.3-8.2) g/dL Urine Protein (Negative) Urine Ketones (Negative) 12/29/18 12/29/18 Range/Units 11:46 16:56 RBC (4.30-5.90) m/uL Hgb (13.0-17.5) gm/dL Hct (39.0-53.0) % RDW (11.5-15.5) % Lymphocytes # (1.0-4.8) k/uL Chloride (98-107) mmol/L Creatinine (0.66-1.25) mg/dL Glucose (74-99) mg/dL POC Glucose (mg/dL) 102 H 126 H (75-99) mg/dL Magnesium (1.6-2.3) mg/dL Total Bilirubin (0.2-1.3) mg/dL AST (17-59) U/L Alkaline Phosphatase (38-126) U/L Total Protein (6.3-8.2) g/dL Urine Protein (Negative) Urine Ketones (Negative) Thrombosis Risk Factor Assmnt - Choose All That Apply Any of the Below Risk Factors Present?: No Each Factor Represents 1 point: Abnormal pulmonary function (COPD) Other Risk Factors: Yes Each Risk Factor Represents 2 Points: Age 61-74 years Each Risk Factor Represents 3 Points: History of DVT/PE Other congenital or acquired thrombophilia - If yes, enter type in comment: No Thrombosis Risk Factor Assessment Total Risk Factor Score: 6 Thrombosis Risk Factor Assessment Level: High Risk Assessment and Plan (1) Alcohol withdrawal Current Visit: Yes Status: Acute Code(s): F10.239 - ALCOHOL DEPENDENCE WITH WITHDRAWAL, UNSPECIFIED SNOMED Code(s): 929826288 (2) Rib fracture Current Visit: Yes Status: Acute Code(s): S22.39XA - FRACTURE OF ONE RIB, UNSP SIDE, INIT FOR CLOS FX SNOMED Code(s): 13909464 (3) Abdominal pain Current Visit: No Status: Acute Code(s): R10.9 - UNSPECIFIED ABDOMINAL PAIN SNOMED Code(s): 31014275 (4) Iron deficiency anemia Current Visit: No Status: Acute Code(s): D50.9 - IRON DEFICIENCY ANEMIA, UNSPECIFIED SNOMED Code(s): 59487577 (5) Hypertension Current Visit: Yes Status: Acute Code(s): I10 - ESSENTIAL (PRIMARY) HYPERTENSION SNOMED Code(s): 16514531 Plan: 1. Alcohol withdrawal. Replete B vitamins. CIWA protocol. Fall precautions 2. Rib fracture. Surgical consult. Pain control. Encourage incentive spirometer 3. HTN. Continue home meds 4. T2DM. Continue metformin
[2018-12-29 21:47] LABS: Glucose,Whole Blood 114 mg/dL (75-99)
[2018-12-30] MEDS: ONDANSETRON 4 MG/2 ML VIAL IVP SCH ×4 (04:57→23:13)
[2018-12-30] MEDS: LIDOCAINE 5% PATCH TOPICAL SCH (07:26)
[2018-12-30 07:27] LABS: Glucose,Whole Blood 96 mg/dL (75-99)
[2018-12-30] MEDS: SUCRALFATE 1 GM TAB PO SCH ×3 (07:27→17:12)
[2018-12-30] MEDS: THIAMINE 100 MG TAB PO SCH ×2 (07:27→17:12)
[2018-12-30] MEDS: amLODIPine 5 MG TAB PO SCH ×2 (07:27→20:02)
[2018-12-30] MEDS: PANTOPRAZOLE 40 MG TABLET PO SCH ×2 (07:27→17:12)
[2018-12-30] MEDS: MAGNESIUM OXIDE 400 MG TAB PO SCH (07:27)
[2018-12-30] MEDS: cloNIDine HCL 0.1 MG TAB PO SCH ×2 (07:28→20:02)
[2018-12-30] MEDS: SODIUM CHLORIDE 0.9% 1,000 ML IV SCH ×2 (07:28→23:13)
[2018-12-30] MEDS: HYDROcodone/APAP 5-325MG 1 EACH TAB PO PRN ×3 (07:28→18:11)
[2018-12-30] MEDS: metFORMIN 500 MG TAB PO SCH ×2 (07:31→17:12)
[2018-12-30] MEDS ORDERED: ONDANSETRON 4 MG/2 ML VIAL IVP PRN (07:58)
[2018-12-30] MEDS ORDERED: METOCLOPRAMIDE 5 MG/ML 2 ML VIAL IVP STA (07:58)
[2018-12-30] MEDS ORDERED: chlorproMAZINE 25 MG TAB PO PRN (08:02)
[2018-12-30] MEDS: SYMBICORT 160-4.5 MCG INHALER INHALATION SCH ×2 (09:09→18:40)
[2018-12-30 09:28] LABS: ALT 38 U/L (21-72); AST 85 U/L (17-59); African American GFR (CKD) >90 (>60 ml/min/1.73 sqM); Albumin 3.1 g/dL (3.5-5.0); Alkaline Phosphatase 152 U/L (38-126); Anion Gap 8 mmol/L; Blood Urea Nitrogen 17 mg/dL (9-20); Calcium 8.1 mg/dL (8.4-10.2); Carbon Dioxide 24 mmol/L (22-30); Chloride 106 mmol/L (98-107); Glucose 174 mg/dL (74-99); Magnesium 1.8 mg/dL (1.6-2.3); Non-African American GFR(CKD) >90 (>60 ml/min/1.73 sqM); Potassium 3.6 mmol/L (3.5-5.1); Sodium 138 mmol/L (137-145); Total Bilirubin 1.1 mg/dL (0.2-1.3); Total Protein 6.6 g/dL (6.3-8.2)
[2018-12-30 09:29] LABS: African American GFR (CKD) >90 (>60 ml/min/1.73 sqM); Anion Gap 7 mmol/L; Blood Urea Nitrogen 17 mg/dL (9-20); Calcium 8.1 mg/dL (8.4-10.2); Carbon Dioxide 25 mmol/L (22-30); Chloride 105 mmol/L (98-107); Glucose 173 mg/dL (74-99); Magnesium 1.8 mg/dL (1.6-2.3); Non-African American GFR(CKD) >90 (>60 ml/min/1.73 sqM); Potassium 3.5 mmol/L (3.5-5.1); Sodium 137 mmol/L (137-145)
[2018-12-30 09:51] LABS: Anisocytosis Slight; Basophils % (A) 0 %; Eosinophils # (A) 0.1 k/uL (0-0.7); Eosinophils % (A) 3 %; HCT 29.6 % (39.0-53.0); Hypochromasia Moderate; Lymphocytes # (A) 1.1 k/uL (1.0-4.8); Lymphocytes % (A) 29 %; MCH 28.8 pg (25.0-35.0); MCHC 31.6 g/dL (31.0-37.0); MCV 91.1 fL (80.0-100.0); Mean Platelet Volume 8.6; Monocytes # (A) 0.2 k/uL (0-1.0); Monocytes % (A) 6 %; Neutrophils # (A) 2.3 k/uL (1.3-7.7); Neutrophils % (A) 61 %; Platelet Count 139 k/uL (150-450); RBC 3.25 m/uL (4.30-5.90); RDW 19.2 % (11.5-15.5); WBC 3.8 k/uL (3.8-10.6)
[2018-12-30 10:03] LABS: HGB 9.3 gm/dL (13.0-17.5)
[2018-12-30 10:28] LABS: Poikilocytosis (M) Present
[2018-12-30 12:15] LABS: Glucose,Whole Blood 94 mg/dL (75-99)
[2018-12-30] MEDS: METOCLOPRAMIDE 5 MG/ML 2 ML VIAL IVP SCH ×3 (13:11→23:13)
--- NOTE | 2018-12-30 15:22 | P.PN ---
<Arielle Mustafa A - Last Filed: 12/30/18 15:17> Subjective Progress Note Date: 12/30/18 CHIEF COMPLAINT: Fall, rib fractures HISTORY OF PRESENT ILLNESS: Patient examined at the bedside this morning. He reports continued nausea and has been receiving Zofran around the clock. Reports dry heaves. Reports minimal flatus. Reports belching and hiccups. PHYSICAL EXAM: VITAL SIGNS: Currently stable. GENERAL: Well-developed in no acute distress. HEENT: No sclera icterus. Extraocular movements grossly intact. Moist buccal mucosa. Head is atraumatic, normocephalic. Hears conversational speech. No nasal drainage. NECK: Supple without lymphadenopathy. CHEST: Non-labored respirations and equal bilateral excursions. Mild tenderness upon palpation of left chest wall. Small quarter size bruise noted to left anterior chest wall. CARDIOVASCULAR: Regular rate with regular rhythm. Palpable 2+ radial pulses. ABDOMEN: Soft. Nondistended. Nontender. MUSCULOSKELETAL: No clubbing, cyanosis or edema. NEUROLOGIC: No focal or lateralizing signs. Cranial nerves II through XII grossly intact. PSYCH: Appropriate affect. Alert and oriented to person, place and time. SKIN: Well perfused. Good skin turgor. ASSESSMENT: 1. Left sided rib fractures, s/p fall 2. History of ETOH abuse, last drink 1 week ago 3. Nausea 4. Hypomagnesemia 5. History of appendectomy and cholecystectomy 6. History of esophageal varices requiring banding 7. Suspected Ileus PLAN: 1. Continue IV fluids 2. Continue clear liquid diet 3. Continue antiemetics 4. Begin Reglan 10 mg IV every 6 hours 5. 2 gram IV magnesium replacement 6. Replace potassium 20meq K-dur Nurse practitioner note has been reviewed by physician. Signing provider agrees with the documented findings, assessment, and plan of care. Objective - Vital Signs Vital signs: Vital Signs Temp 98.9 F 12/30/18 14:39 Pulse 85 12/30/18 14:39 Resp 16 12/30/18 14:39 BP 114/74 12/30/18 14:39 Pulse Ox 96 12/30/18 14:39 Intake & Output 12/29/18 12/30/18 12/30/18 18:59 06:59 18:59 Intake Total 656 578 3309 Balance 520 327 0374 Intake: Intake, IV Titration 300 Amount Sodium Chloride 0.9% 1, 300 000 ml @ 100 mls/hr IV . Q10H7M ONE with Mvi, Adult No.4 with Vit K 10 ml with Thiamine 100 mg with Folic Acid 1 mg Rx#: [id number] Oral 960 1400 Other: Voiding Method Toilet Toilet Toilet # Voids 1 # Bowel Movements 1 - Labs CBC & Chem 7: 12/30/18 09:02 12/30/18 09:02 Labs: Abnormal Lab Results - Last 24 Hours (Table) 12/29/18 12/29/18 12/30/18 Range/Units 16:56 21:46 09:02 RBC 3.25 L (4.30-5.90) m/uL Hgb 9.3 L D (13.0-17.5) gm/dL Hct 29.6 L (39.0-53.0) % RDW 19.2 H (11.5-15.5) % Plt Count 139 L (150-450) k/uL Creatinine (0.66-1.25) mg/dL Glucose (74-99) mg/dL POC Glucose (mg/dL) 126 H 114 H (75-99) mg/dL Calcium (8.4-10.2) mg/dL AST (17-59) U/L Alkaline Phosphatase (38-126) U/L Albumin (3.5-5.0) g/dL 12/30/18 12/30/18 Range/Units 09:02 09:02 RBC (4.30-5.90) m/uL Hgb (13.0-17.5) gm/dL Hct (39.0-53.0) % RDW (11.5-15.5) % Plt Count (150-450) k/uL Creatinine 0.62 L 0.61 L (0.66-1.25) mg/dL Glucose 174 H 173 H (74-99) mg/dL POC Glucose (mg/dL) (75-99) mg/dL Calcium 8.1 L 8.1 L (8.4-10.2) mg/dL AST 85 H (17-59) U/L Alkaline Phosphatase 152 H (38-126) U/L Albumin 3.1 L (3.5-5.0) g/dL <Angela Kauffman N - Last Filed: 12/30/18 20:31> Subjective As above. Clinical exam consistent with ileus. Will monitor. Objective - Vital Signs Vital signs: Vital Signs Temp 97.9 F 12/30/18 19:53 Pulse 83 12/30/18 19:53 Resp 18 12/30/18 19:53 BP 130/83 12/30/18 19:53 Pulse Ox 98 12/30/18 19:53 Intake & Output 12/30/18 12/30/18 12/31/18 06:59 18:59 06:59 Intake Total 960 1800 Balance 960 1800 Intake: Oral 960 1800 Other: Voiding Method Toilet Toilet # Voids 1 # Bowel Movements 1 - Labs CBC & Chem 7: 12/30/18 09:02 12/30/18 09:02 Labs: Abnormal Lab Results - Last 24 Hours (Table) 12/29/18 12/30/18 12/30/18 Range/Units 21:46 09:02 09:02 RBC 3.25 L (4.30-5.90) m/uL Hgb 9.3 L D (13.0-17.5) gm/dL Hct 29.6 L (39.0-53.0) % RDW 19.2 H (11.5-15.5) % Plt Count 139 L (150-450) k/uL Creatinine 0.62 L (0.66-1.25) mg/dL Glucose 174 H (74-99) mg/dL POC Glucose (mg/dL) 114 H (75-99) mg/dL Calcium 8.1 L (8.4-10.2) mg/dL AST 85 H (17-59) U/L Alkaline Phosphatase 152 H (38-126) U/L Albumin 3.1 L (3.5-5.0) g/dL 12/30/18 Range/Units 09:02 RBC (4.30-5.90) m/uL Hgb (13.0-17.5) gm/dL Hct (39.0-53.0) % RDW (11.5-15.5) % Plt Count (150-450) k/uL Creatinine 0.61 L (0.66-1.25) mg/dL Glucose 173 H (74-99) mg/dL POC Glucose (mg/dL) (75-99) mg/dL Calcium 8.1 L (8.4-10.2) mg/dL AST (17-59) U/L Alkaline Phosphatase (38-126) U/L Albumin (3.5-5.0) g/dL
[2018-12-30] MEDS: MAGNESIUM SULFATE-D5W PMX 1 GM in DEXTROSE/WATER 1 100ML.BAG IVPB SCH ×2 (15:33→17:12)
[2018-12-30] MEDS: POTASSIUM CHLORIDE ER 20 MEQ TAB.ER PO SCH ×3 (15:33→18:14)
--- NOTE | 2018-12-30 16:56 | P.PN ---
Subjective Progress Note Date: 12/30/18 Anders Aguilar is a 63 yo M with PMH significant for alcohol abuse, COPD, HTN who presented to the ED complaining of generalized malaise, nausea, and rib pain after a fall at home. He states he woke up yesterday and while getting out of bed tripped on the carpet and fell backwards. He landed on his lateral ribs, did not hit his head or lose consciousness. Since then he complains of pain with inspiration, cough and movement. Pt states that he usually drinks "a few" tall boys every night but last drink was a week ago. In the ED vital stable, labs unremarkable except for hgb 12, CXR with L posterolateral rib fracture. Currently he complains of rib pain with inspiration as well as diaphoresis, insomnia and 'the shakes' which he attributes to alcohol withdrawal. 12/30/2018 no overnight events. Maintained on CIWA protocol, minimal shakiness. Complains of persistent nausea, dry heaves, belching with hiccups. Diet downgraded to clears secondary to suspected ileus as per surgery. Continues on IV fluid hydration. Receiving potassium and magnesium supplementation.VSS. Denies chest pain, palpitations or shortness of breath. Reports good pain control with lidocaine patches. Objective - Vital Signs Vital signs: Vital Signs Temp 98.9 F 12/30/18 14:39 Pulse 85 12/30/18 16:11 Resp 16 12/30/18 16:11 BP 114/74 12/30/18 14:39 Pulse Ox 96 12/30/18 14:39 Intake & Output 12/29/18 12/30/18 12/30/18 18:59 06:59 18:59 Intake Total 502 961 0641 Balance 353 803 9413 Intake: Intake, IV Titration 300 Amount Sodium Chloride 0.9% 1, 300 000 ml @ 100 mls/hr IV . Q10H7M ONE with Mvi, Adult No.4 with Vit K 10 ml with Thiamine 100 mg with Folic Acid 1 mg Rx#: [id number] Oral 960 1400 Other: Voiding Method Toilet Toilet Toilet # Voids 1 # Bowel Movements 1 - Exam Vital Signs ABOVE Gen: alert, well developed, NAD. HEENT: normocephalic atraumatic. TMs clear. PERRLA. Neck: supple, no thyromegaly or JVD CV: RRR, no murmur, pulses 2+ Lungs: normal effort, clear throughout Abd: soft, nondistended, nontender, no organomegaly Lymph: no cervical or axillary LAD Skin: warm and diaphoretic Neuro: AAOx3, no focal deficits, fine intention tremor - Labs CBC & Chem 7: 12/30/18 09:02 12/30/18 09:02 Labs: Abnormal Lab Results - Last 24 Hours (Table) 12/29/18 12/29/18 12/30/18 Range/Units 16:56 21:46 09:02 RBC 3.25 L (4.30-5.90) m/uL Hgb 9.3 L D (13.0-17.5) gm/dL Hct 29.6 L (39.0-53.0) % RDW 19.2 H (11.5-15.5) % Plt Count 139 L (150-450) k/uL Creatinine (0.66-1.25) mg/dL Glucose (74-99) mg/dL POC Glucose (mg/dL) 126 H 114 H (75-99) mg/dL Calcium (8.4-10.2) mg/dL AST (17-59) U/L Alkaline Phosphatase (38-126) U/L Albumin (3.5-5.0) g/dL 12/30/18 12/30/18 Range/Units 09:02 09:02 RBC (4.30-5.90) m/uL Hgb (13.0-17.5) gm/dL Hct (39.0-53.0) % RDW (11.5-15.5) % Plt Count (150-450) k/uL Creatinine 0.62 L 0.61 L (0.66-1.25) mg/dL Glucose 174 H 173 H (74-99) mg/dL POC Glucose (mg/dL) (75-99) mg/dL Calcium 8.1 L 8.1 L (8.4-10.2) mg/dL AST 85 H (17-59) U/L Alkaline Phosphatase 152 H (38-126) U/L Albumin 3.1 L (3.5-5.0) g/dL Assessment and Plan Assessment: (1) Alcohol withdrawal Current Visit: Yes Status: Acute Code(s): F10.239 - ALCOHOL DEPENDENCE WITH WITHDRAWAL, UNSPECIFIED SNOMED Code(s): 867059480 (2) Rib fracture, left-sided, status post fall Current Visit: Yes Status: Acute Code(s): S22.39XA - FRACTURE OF ONE RIB, UNSP SIDE, INIT FOR CLOS FX SNOMED Code(s): 84483734 (3) Abdominal pain Current Visit: No Status: Acute Code(s): R10.9 - UNSPECIFIED ABDOMINAL PAIN SNOMED Code(s): 57279649 (4) Iron deficiency anemia Current Visit: No Status: Acute Code(s): D50.9 - IRON DEFICIENCY ANEMIA, UNSPECIFIED SNOMED Code(s): 35462566 (5) Hypertension Current Visit: Yes Status: Acute Code(s): I10 - ESSENTIAL (PRIMARY) HYPERTENSION SNOMED Code(s): 80376378 (6) persistent nausea, possible ileus Plan: Continue on current medication regime , Zofran, Reglan, monitoring and sym ptomatic treatment. Maintain IV fluid hydration. Aggressive pulmonary toileting with incentive spirometer reinforced.CIWA protocol. Pain management. Increase ambulation as tolerated. The impression and plan of care has been dictated as directed. : I performed a history and examination of this patient, discussed the same with the dictator. I agree with the dictator's note ,documented as a scribe. Any additional findings or plans will be noted.
[2018-12-31] MEDS: HYDROcodone/APAP 5-325MG 1 EACH TAB PO PRN (03:36)
[2018-12-31] MEDS: ONDANSETRON 4 MG/2 ML VIAL IVP SCH ×3 (05:44→17:25)
[2018-12-31] MEDS: METOCLOPRAMIDE 5 MG/ML 2 ML VIAL IVP SCH ×3 (05:44→17:26)
[2018-12-31 07:12] LABS: Anisocytosis Slight; Basophils % (A) 0 %; Eosinophils # (A) 0.1 k/uL (0-0.7); Eosinophils % (A) 4 %; HCT 29.7 % (39.0-53.0); HGB 9.1 gm/dL (13.0-17.5); Hypochromasia Marked; Lymphocytes % (A) 28 %; MCH 28.1 pg (25.0-35.0); MCHC 30.6 g/dL (31.0-37.0); MCV 91.9 fL (80.0-100.0); Mean Platelet Volume 7.8; Monocytes # (A) 0.2 k/uL (0-1.0); Monocytes % (A) 6 %; Neutrophils # (A) 2.2 k/uL (1.3-7.7); Neutrophils % (A) 62 %; Platelet Count 125 k/uL (150-450); RBC 3.23 m/uL (4.30-5.90); RDW 19.4 % (11.5-15.5); WBC 3.5 k/uL (3.8-10.6)
[2018-12-31 07:29] LABS: African American GFR (CKD) >90 (>60 ml/min/1.73 sqM); Anion Gap 9 mmol/L; Blood Urea Nitrogen 9 mg/dL (9-20); Calcium 8.3 mg/dL (8.4-10.2); Carbon Dioxide 22 mmol/L (22-30); Chloride 108 mmol/L (98-107); Glucose 86 mg/dL (74-99); Non-African American GFR(CKD) >90 (>60 ml/min/1.73 sqM); Potassium 3.9 mmol/L (3.5-5.1); Sodium 139 mmol/L (137-145)
[2018-12-31] MEDS: MAGNESIUM OXIDE 400 MG TAB PO SCH (07:41)
[2018-12-31] MEDS: metFORMIN 500 MG TAB PO SCH ×2 (07:41→17:24)
[2018-12-31] MEDS: cloNIDine HCL 0.1 MG TAB PO SCH ×2 (07:41→20:34)
[2018-12-31] MEDS: SUCRALFATE 1 GM TAB PO SCH ×3 (07:41→17:24)
[2018-12-31] MEDS: THIAMINE 100 MG TAB PO SCH ×2 (07:42→17:24)
[2018-12-31] MEDS: amLODIPine 5 MG TAB PO SCH ×2 (07:42→20:34)
[2018-12-31] MEDS: PANTOPRAZOLE 40 MG TABLET PO SCH ×2 (07:42→18:00)
[2018-12-31] MEDS: LIDOCAINE 5% PATCH TOPICAL SCH (07:44)
[2018-12-31] MEDS: SODIUM CHLORIDE 0.9% 1,000 ML IV SCH ×2 (07:51→18:01)
[2018-12-31] MEDS: SYMBICORT 160-4.5 MCG INHALER INHALATION SCH ×2 (09:30→20:09)
--- NOTE | 2018-12-31 10:24 | P.PN ---
Subjective Progress Note Date: 12/31/18 CHIEF COMPLAINT: Right upper quadrant pain HISTORY OF PRESENT ILLNESS: The patient is a 63-year-old male with alcohol withdrawal, nausea, left sided rib fractures and ileus. His nausea is resolved. He is still sore. He had a bowel movement. He tolerated clears. ROS: No fevers or chills. No new chest pain. No productive sputum PHYSICAL EXAM: VITAL SIGNS: Reviewed CONSTITUTIONAL: Well developed and in no acute distress. EYES: Conjuctivae without sclera icterus. Extraocular movements grossly intact. HEAD, EARS, NOSE, THROAT: Moist buccal mucosa. Head is atraumatic, normocephalic. Hears conversational speech. No nasal drainage. NECK: Supple. No thyroidomegaly. RESPIRATORY: Non-labored respirations and equal bilateral excursions. CARDIOVASCULAR: Palpable 2+ radial pulses. ABDOMEN: Soft. No peritonitis. MUSCULOSKELETAL: No gross deformity of the lower extremities noted. No clubbi ng. No cyanosis. SKIN: Good skin turgor. Well perfused. NEUROLOGIC: Cranial nerves I through XII grossly intact. No focal or lateralizing signs. PSYCH: Appropriate affect. Alert and oriented to person, place and time. CLINCAL LABS: White blood cell count low ASSESSMENT: 1. Ileus 2. Nausea and vomiting 3. Right upper quadrant pain PLAN: 1. Advance diet to soft diet 2. NSAIDs for pain control Objective - Vital Signs Vital signs: Vital Signs Temp 97.8 F 12/31/18 06:59 Pulse 92 12/31/18 06:59 Resp 15 12/31/18 06:59 BP 125/81 12/31/18 06:59 Pulse Ox 98 12/31/18 09:31 Intake & Output 12/30/18 12/31/18 12/31/18 18:59 06:59 18:59 Intake Total 1800 1690 180 Balance 1800 1690 180 Intake: Intake, IV Titration 1150 Amount Sodium Chloride 0.9% 1, 1150 000 ml @ 100 mls/hr IV . Q10H TANYA Rx#:[id number] Oral 1800 540 180 Other: Voiding Method Toilet Toilet # Voids 1 2 # Bowel Movements 1 - Labs CBC & Chem 7: 12/31/18 06:33 12/31/18 06:33 Labs: Abnormal Lab Results - Last 24 Hours (Table) 0812/31/18 12/31/18 Range/Units 09:02 06:33 06:33 WBC 3.5 L (3.8-10.6) k/uL RBC 3.25 L 3.23 L (4.30-5.90) m/uL Hgb 9.3 L D 9.1 L (13.0-17.5) gm/dL Hct 29.6 L 29.7 L (39.0-53.0) % MCHC 30.6 L (31.0-37.0) g/dL RDW 19.2 H 19.4 H (11.5-15.5) % Plt Count 139 L 125 L (150-450) k/uL Chloride 108 H (98-107) mmol/L Creatinine 0.65 L (0.66-1.25) mg/dL Calcium 8.3 L (8.4-10.2) mg/dL Assessment and Plan (1) Left rib fracture Current Visit: Yes Status: Acute Code(s): S22.32XA - FRACTURE OF ONE RIB, LEFT SIDE, INIT FOR CLOS FX SNOMED Code(s): 36066619 (2) Right upper quadrant pain Current Visit: Yes Status: Acute Code(s): R10.11 - RIGHT UPPER QUADRANT PAIN SNOMED Code(s): 465863032 (3) Alcohol withdrawal Current Visit: Yes Status: Acute Code(s): F10.239 - ALCOHOL DEPENDENCE WITH WITHDRAWAL, UNSPECIFIED SNOMED Code(s): 296787805
[2018-12-31] MEDS: KETOROLAC 30 MG/ML 1 ML VIAL IVP SCH ×2 (11:08→17:24)
[2018-12-31 16:53] LABS: Glucose,Whole Blood 86 mg/dL (75-99)
[2018-12-31 20:44] LABS: Glucose,Whole Blood 87 mg/dL (75-99)
--- NOTE | 2018-12-31 23:04 | P.PN ---
Subjective Progress Note Date: 12/31/18 Anders Aguilar is a 63 yo M with PMH significant for alcohol abuse, COPD, HTN who presented to the ED complaining of generalized malaise, nausea, and rib pain after a fall at home. He states he woke up yesterday and while getting out of bed tripped on the carpet and fell backwards. He landed on his lateral ribs, did not hit his head or lose consciousness. Since then he complains of pain with inspiration, cough and movement. Pt states that he usually drinks "a few" tall boys every night but last drink was a week ago. In the ED vital stable, labs unremarkable except for hgb 12, CXR with L posterolateral rib fracture. Currently he complains of rib pain with inspiration as well as diaphoresis, insomnia and 'the shakes' which he attributes to alcohol withdrawal. 12/30/2018 no overnight events. Maintained on CIWA protocol, minimal shakiness. Complains of persistent nausea, dry heaves, belching with hiccups. Diet downgraded to clears secondary to suspected ileus as per surgery. Continues on IV fluid hydration. Receiving potassium and magnesium supplementation.VSS. Denies chest pain, palpitations or shortness of breath. Reports good pain control with lidocaine patches. 12/31. Pt is improved today, still having some belching and feeling of fullness but no nausea or vomiting. He is passing flatus. Diet advanced today per surgery. He continues to complain of rib pain which is doing well with lidocaine patches. Objective - Vital Signs Vital signs: Vital Signs Temp 97.9 F 12/31/18 20:12 Pulse 60 12/31/18 20:12 Resp 17 12/31/18 20:12 BP 133/95 12/31/18 20:12 Pulse Ox 96 12/31/18 20:12 Intake & Output 12/31/18 12/31/18 01/01/19 06:59 18:59 06:59 Intake Total 1690 2180 Balance 1690 2180 Intake: IV 800 Sodium Chloride 0.9% 1, 800 000 ml @ 100 mls/hr IV . Q10H TANYA Rx#:[id number] Intake, IV Titration 1150 Amount Sodium Chloride 0.9% 1, 1150 000 ml @ 100 mls/hr IV . Q10H TANYA Rx#:[id number] Oral 540 1380 Other: Voiding Method Toilet # Voids 2 - Exam Gen: alert, well developed, NAD. HEENT: normocephalic atraumatic. TMs clear. PERRLA. Neck: supple, no thyromegaly or JVD CV: RRR, no murmur, pulses 2+ Lungs: normal effort, clear throughout Abd: soft, nondistended, nontender, no organomegaly Lymph: no cervical or axillary LAD Skin: warm and diaphoretic Neuro: AAOx3, no focal deficits, fine intention tremor - Labs CBC & Chem 7: 12/31/18 06:33 12/31/18 06:33 Labs: Abnormal Lab Results - Last 24 Hours (Table) 12/31/18 12/31/18 Range/Units 06:33 06:33 WBC 3.5 L (3.8-10.6) k/uL RBC 3.23 L (4.30-5.90) m/uL Hgb 9.1 L (13.0-17.5) gm/dL Hct 29.7 L (39.0-53.0) % MCHC 30.6 L (31.0-37.0) g/dL RDW 19.4 H (11.5-15.5) % Plt Count 125 L (150-450) k/uL Chloride 108 H (98-107) mmol/L Creatinine 0.65 L (0.66-1.25) mg/dL Calcium 8.3 L (8.4-10.2) mg/dL Assessment and Plan (1) Alcohol withdrawal Current Visit: Yes Status: Acute Code(s): F10.239 - ALCOHOL DEPENDENCE WITH WITHDRAWAL, UNSPECIFIED SNOMED Code(s): 094432300 (2) Rib fracture Current Visit: Yes Status: Acute Code(s): S22.39XA - FRACTURE OF ONE RIB, UNSP SIDE, INIT FOR CLOS FX SNOMED Code(s): 70204500 (3) Abdominal pain Current Visit: No Status: Acute Code(s): R10.9 - UNSPECIFIED ABDOMINAL PAIN SNOMED Code(s): 79963405 (4) Iron deficiency anemia Current Visit: No Status: Acute Code(s): D50.9 - IRON DEFICIENCY ANEMIA, UNSPECIFIED SNOMED Code(s): 44666761 (5) Hypertension Current Visit: Yes Status: Acute Code(s): I10 - ESSENTIAL (PRIMARY) HYPERTENSION SNOMED Code(s): 31378463 Plan: Plan: Continue on current medication regime , Zofran, Reglan, monitoring and symptomatic treatment. Aggressive pulmonary toileting with incentive spirometer reinforced.CIWA protocol. Pain management. Increase ambulation as tolerated. Plan on d/c tomorrow
[2019-01-01] MEDS: KETOROLAC 30 MG/ML 1 ML VIAL IVP SCH ×2 (00:47→05:54)
[2019-01-01] MEDS: SODIUM CHLORIDE 0.9% 1,000 ML IV SCH (00:47)
[2019-01-01] MEDS: METOCLOPRAMIDE 5 MG/ML 2 ML VIAL IVP SCH ×2 (00:48→05:54)
[2019-01-01] MEDS: ONDANSETRON 4 MG/2 ML VIAL IVP SCH ×2 (00:48→05:54)
[2019-01-01] MEDS: PANTOPRAZOLE 40 MG TABLET PO SCH (07:53)
[2019-01-01] MEDS: THIAMINE 100 MG TAB PO SCH (07:53)
[2019-01-01] MEDS: metFORMIN 500 MG TAB PO SCH (07:53)
[2019-01-01] MEDS: amLODIPine 5 MG TAB PO SCH (07:53)
[2019-01-01] MEDS: SUCRALFATE 1 GM TAB PO SCH (07:53)
[2019-01-01] MEDS: MAGNESIUM OXIDE 400 MG TAB PO SCH (07:53)
[2019-01-01] MEDS: LIDOCAINE 5% PATCH TOPICAL SCH (07:53)
[2019-01-01] MEDS: cloNIDine HCL 0.1 MG TAB PO SCH (07:53)
[2019-01-01 08:10] VITALS: BP 132/89; PULSE 86; RESP 15; TEMP 98
[2019-01-01] MEDS: SYMBICORT 160-4.5 MCG INHALER INHALATION SCH (08:43)
--- NOTE | 2019-01-01 11:05 | P.DS ---
Providers Date of admission: 12/29/18 03:19 Attending physician: Alexys Marcus MD Consults: 12/29/18 02:50 Consult Physician Routine Consulting Provider: Angela Kauffman Consult Reason/Comments: Fall; Rib fractures Do you want consulting provider notified?: Yes Primary care physician: Yoon Phillips - Discharge Diagnosis(es) (1) Alcohol withdrawal Current Visit: Yes Status: Acute (2) Rib fracture Current Visit: Yes Status: Acute (3) Abdominal pain Current Visit: No Status: Acute (4) Iron deficiency anemia Current Visit: No Status: Acute (5) Hypertension Current Visit: Yes Status: Acute (6) Vomiting Current Visit: Yes Status: Acute Hospital Course: Anders Aguilar is a 63 yo M with PMH significant for alcohol abuse, COPD, HTN who presented to the ED complaining of generalized malaise, nausea, and rib pain after a fall at home. He states he woke up yesterday and while getting out of bed tripped on the carpet and fell backwards. He landed on his lateral ribs, did not hit his head or lose consciousness. Since then he complains of pain with inspiration, cough and movement. Pt states that he usually drinks "a few" tall boys every night but last drink was a week ago. In the ED vital stable, labs unremarkable except for hgb 12, CXR with L posterolateral rib fracture. Currently he complains of rib pain with inspiration as well as diaphoresis, insomnia and 'the shakes' which he attributes to alcohol withdrawal. 12/30/2018 no overnight events. Maintained on CIWA protocol, minimal shakiness. Complains of persistent nausea, dry heaves, belching with hiccups. Diet downgraded to clears secondary to suspected ileus as per surgery. Continues on IV fluid hydration. Receiving potassium and magnesium supplementation.VSS. Denies chest pain, palpitations or shortness of breath. Reports good pain control with lidocaine patches. 12/31. Pt is improved today, still having some belching and feeling of fullness but no nausea or vomiting. He is passing flatus. Diet advanced today per surgery. He continues to complain of rib pain which is doing well with lidocaine patches. 01/01. Pt's rib pain significantly improved and no longer having hiccups or nausea. Able to tolerate regular diet. Passing gas and BM without issue. He is discharged home in stable condition and has intake appointment [facility] next week. Pt educated on importance of continued abstinence from alcohol. He will follow up with PCP next week. Patient Condition at Discharge: Stable Plan - Discharge Summary Discharge Rx Participant: Yes New Discharge Prescriptions: New Lidocaine 5% Patch [Lidoderm 5% Patch] 2 patch TOPICAL DAILY #30 patch Continue cloNIDine HCL [Catapres] 0.1 mg PO BID #60 tab Ferrous Sulfate [Iron (65 MG Elemental)] 325 mg PO DAILY amLODIPine [Norvasc] 5 mg PO BID metFORMIN HCL [Glucophage] 500 mg PO BID Sucralfate [Carafate] 1 gm PO AC-TID 30 Days #90 tab Magnesium Oxide [Mag-Ox] 400 mg PO DAILY #20 tablet Pantoprazole Sodium [Protonix] 40 mg PO BID #60 tablet.Will Myles [Multivitamin (formulary)] 1 tab PO DAILY Folic Acid 1 mg PO AC-LUNCH #30 tab Budesonide-Formot 160-4.5 Mcg [Symbicort 160-4.5 Mcg Inhaler] 2 puff INHALATION RT-BID #1 inh HYDROcodone/APAP 5-325MG [[place] 5-325] 1 tab PO Q6HR PRN #10 tab PRN Reason: Pain Thiamine Mononitrate (Vit B1) [Vitamin B-1] 100 mg PO DAILY@1200 Discharge Medication List cloNIDine HCL [Catapres] 0.1 mg PO BID #60 tab 03/26/18 [Rx] Ferrous Sulfate [Iron (65 MG Elemental)] 325 mg PO DAILY 04/24/18 [History] amLODIPine [Norvasc] 5 mg PO BID 08/25/18 [History] metFORMIN HCL [Glucophage] 500 mg PO BID 10/19/18 [History] Sucralfate [Carafate] 1 gm PO AC-TID 30 Days #90 tab 10/24/18 [Rx] Magnesium Oxide [Mag-Ox] 400 mg PO DAILY #20 tablet 11/01/18 [Rx] Pantoprazole Sodium [Protonix] 40 mg PO BID #60 tablet. 11/04/18 [Rx] Shilpa Thera [Multivitamin (formulary)] 1 tab PO DAILY 12/12/18 [History] Budesonide-Formot 160-4.5 Mcg [Symbicort 160-4.5 Mcg Inhaler] 2 puff INHALATION RT-BID #1 inh 12/15/18 [Rx] Folic Acid 1 mg PO AC-LUNCH #30 tab 12/15/18 [Rx] HYDROcodone/APAP 5-325MG [[place] 5-325] 1 tab PO Q6HR PRN #10 tab 12/28/18 [Rx] Thiamine Mononitrate (Vit B1) [Vitamin B-1] 100 mg PO DAILY@1200 12/29/18 [History] Lidocaine 5% Patch [Lidoderm 5% Patch] 2 patch TOPICAL DAILY #30 patch 12/30/18 [Rx] Follow up Appointment(s)/Referral(s): Yoon Phillips DO [Primary Care Provider] - 3 Days Activity/Diet/Wound Care/Special Instructions: IS every hour 10 while awake Discharge Disposition: HOME SELF-CARE
== END 2019-01-01 11:53 | disposition home or self-care (01) | DRG 184 ==
LOC: EC 20:05 → 4SSUR 12-29 03:19
PROVIDERS: ADMIT Family Medicine; ATTEND Family Medicine
PROC: 05HD33Z Insertion of Infusion Device into Right Cephalic Vein, Percutaneous Approach (ICD-10-PCS; principal; 2018-12-29 14:00)
DX: S22.42XA Multiple fractures of ribs, left side, initial encounter for closed fracture (principal); F10.239 Alcohol dependence with withdrawal, unspecified; K56.7 Ileus, unspecified; K76.6 Portal hypertension; D50.9 Iron deficiency anemia, unspecified; E11.9 Type 2 diabetes mellitus without complications; E78.5 Hyperlipidemia, unspecified; E83.42 Hypomagnesemia; E86.0 Dehydration; F32.9 Major depressive disorder, single episode, unspecified; F41.9 Anxiety disorder, unspecified; G47.00 Insomnia, unspecified; I10 Essential (primary) hypertension; I48.91 Unspecified atrial fibrillation; J44.9 Chronic obstructive pulmonary disease, unspecified; K21.9 Gastro-esophageal reflux disease without esophagitis; K70.30 Alcoholic cirrhosis of liver without ascites; W01.0XXA Fall on same level from slipping, tripping and stumbling without subsequent striking against object, initial encounter; Y92.003 Bedroom of unspecified non-institutional (private) residence as the place of occurrence of the external cause; Z79.51 Long term (current) use of inhaled steroids; Z79.84 Long term (current) use of oral hypoglycemic drugs; Z79.899 Other long term (current) drug therapy; Z82.3 Family history of stroke; Z82.5 Family history of asthma and other chronic lower respiratory diseases; Z85.46 Personal history of malignant neoplasm of prostate; Z86.711 Personal history of pulmonary embolism; Z86.73 Personal history of transient ischemic attack (TIA), and cerebral infarction without residual deficits; Z90.49 Acquired absence of other specified parts of digestive tract; Z92.3 Personal history of irradiation; R06.6 Hiccough; M54.31 Sciatica, right side; Z87.01 Personal history of pneumonia (recurrent); Z60.2 Problems related to living alone; M50.30 Other cervical disc degeneration, unspecified cervical region; Z88.8 Allergy status to other drugs, medicaments and biological substances; Z91.012 Allergy to eggs; Z91.040 Latex allergy status; D69.6 Thrombocytopenia, unspecified; G89.29 Other chronic pain; M41.9 Scoliosis, unspecified
CPT/HCPCS: 36410; 36415; 71046; 71260; 76937; 80048; 80053; 81003; 83690; 83735; 84484; 85025; 85610; 85730; 93005; 94640; 94760; 96361; 96365; 96366; 96368; 96372; 96374; 96375; 96376; 99285

== ENCOUNTER 2019-01-27 18:31 | Inpatient (IN) | payer OTHER ==
[2019-01-27] MEDS ORDERED: SODIUM CHLORIDE 0.9% 500 ML 500 ML IV STA (18:44)
[2019-01-27] MEDS ORDERED: PANTOPRAZOLE 40 MG/10 ML VIAL IVP STA (18:44)
[2019-01-27] MEDS ORDERED: METOCLOPRAMIDE 5 MG/ML 2 ML VIAL IVP STA (18:45)
--- NOTE | 2019-01-27 18:47 | ED ---
General Adult HPI - General Chief complaint: Nausea/Vomiting/Diarrhea Stated complaint: nausea/vomiting Time Seen by Provider: 01/27/19 18:34 Source: patient, EMS, RN notes reviewed Mode of arrival: EMS Limitations: no limitations - History of Present Illness Initial comments: Patient is a pleasant 63-year-old male presenting to the emergency department with concerns for hematemesis. Onset of symptoms was this morning. Patient states she is vomiting 4 or 5 times. Patient states he is vomiting coffee- ground emesis. Patient does have history of similar symptoms previously associated with GI bleed. Patient states is secondary to his alcohol use. Patient still complains of feeling nauseated. No significant abdominal pain. No rectal bleeding. No other areas of bleeding. - Related Data Home Medications Medication Instructions Recorded Confirmed Ferrous Sulfate [Iron (65 MG 325 mg PO DAILY 04/24/18 01/27/19 Elemental)] amLODIPine [Norvasc] 5 mg PO BID 08/25/18 01/27/19 metFORMIN HCL [Glucophage] 500 mg PO BID 10/19/18 01/27/19 Multivitamins, Thera [Multivitamin 1 tab PO DAILY 12/12/18 01/27/19 (formulary)] Thiamine Mononitrate (Vit B1) 100 mg PO DAILY@1200 12/29/18 01/27/19 [Vitamin B-1] Previous Rx's Medication Instructions Recorded cloNIDine HCL [Catapres] 0.1 mg PO BID #60 tab 03/26/18 Sucralfate [Carafate] 1 gm PO AC-TID 30 Days #90 tab 10/24/18 Magnesium Oxide [Mag-Ox] 400 mg PO DAILY #20 tablet 11/01/18 Pantoprazole Sodium [Protonix] 40 mg PO BID #60 tablet. 11/04/18 Budesonide-Formot 160-4.5 Mcg 2 puff INHALATION RT-BID #1 inh 12/15/18 [Symbicort 160-4.5 Mcg Inhaler] Folic Acid 1 mg PO AC-LUNCH #30 tab 12/15/18 HYDROcodone/APAP 5-325MG [[place] 1 tab PO Q6HR PRN #10 tab 12/28/18 5-325] Allergies Allergy/AdvReac Type Severity Reaction Status Date / Time adhesive tape Allergy Rash/Hives Verified 01/27/19 19:42 latex Allergy Unknown Verified 01/27/19 19:42 egg AdvReac Nausea & Verified 01/27/19 19:42 Vomiting lisinopril AdvReac EYES Verified 01/27/19 19:42 BURN&ITCH/WEAKNESS tomato AdvReac Nausea & Verified 01/27/19 19:42 Vomiting & Diarrhea Review of Systems ROS Statement: Those systems with pertinent positive or pertinent negative responses have been documented in the HPI. ROS Other: All systems not noted in ROS Statement are negative. Constitutional: Denies: fever Eyes: Denies: eye pain ENT: Denies: ear pain Respiratory: Denies: cough Cardiovascular: Denies: chest pain Endocrine: Reports: fatigue Gastrointestinal: Reports: nausea, vomiting, hematemesis. Denies: abdominal vin n Genitourinary: Denies: dysuria Musculoskeletal: Denies: back pain Skin: Denies: rash Past Medical History Past Medical History: Atrial Fibrillation, Cancer, Chest Pain / Angina, COPD, CVA/TIA, Diabetes Mellitus, GERD/Reflux, GI Bleed, Hyperlipidemia, Hypertension, Pneumonia, Prostate Disorder, Pulmonary Embolus (PE) Additional Past Medical History / Comment(s): tachycardia/palpitations likely d/t alcohol withdrawal. hx of Alcoholism, chronic alcoholic cirrhosis with portal hypertension and previous history of upper and lower GI bleeding, esophageal varices, previous history of childhood seizure which he outgrew not taking any antiepileptic medication-possibly had recent seizure-2018 thought d/t alcohol withdrawal, pulmonary embolism x 2 R lung, TIA, diverticulosis, chronic lower bilateral extremity ankle edema if he walks alot, previous history of septicemia, cervical disc disease with chronic back pain with r sided sciatica, degenerative arthritis involving the lower back, tinnitus, vitamin D deficiency, iron anemia, chronic thrombocytopenia, denies MRSA, C-DIFF -2018, scoliosis, scoliosis. pt had radiation 04/28 for prostate cancer History of Any Multi-Drug Resistant Organisms: C-DIFF, MRSA Date of last positivie culture/infection: n/a MDRO Source:: STOOL Past Surgical History: Appendectomy, Cholecystectomy Additional Past Surgical History / Comment(s): EGDs/esophageal varicies bandings, colonoscopies. Past Anesthesia/Blood Transfusion Reactions: No Reported Reaction Additional Past Anesthesia/Blood Transfusion Reaction / Comment(s): after append ix removed sob Past Psychological History: Anxiety, Depression Smoking Status: Never smoker Past Alcohol Use History: Abuse, Daily, Heavy Past Drug Use History: None Reported - Past Family History Mother Family Medical History: COPD, CVA/TIA, Dementia Additional Family Medical History / Comment(s): from a stroke Father Family Medical History: Pneumonia Additional Family Medical History / Comment(s): Father of pneumonia when he was close to 80 yrs old. General Exam Limitations: no limitations General appearance: alert, in no apparent distress Head exam: Present: atraumatic Eye exam: Present: normal appearance, PERRL ENT exam: Present: normal oropharynx Neck exam: Present: normal inspection Respiratory exam: Present: normal lung sounds bilaterally Cardiovascular Exam: Present: regular rate, normal rhythm GI/Abdominal exam: Present: soft. Absent: distended, tenderness Extremities exam: Present: normal inspection Neurological exam: Present: alert Psychiatric exam: Present: normal affect, normal mood Skin exam: Present: normal color Course Vital Signs 01/27/19 18:33 Temperature 98.0 F Pulse Rate 105 H Respiratory 18 Rate Blood Pressure 123/80 O2 Sat by Pulse 98 Oximetry Medical Decision Making - Medical Decision Making Patient reevaluated and resting comfortably in bed. Patient does feel somewhat better following medications. Patient updated on results and plan. Case was discussed in detail with practitioner Evette Ramirez covering for Dr. Riley, who is covering for Dr. Nicholas, who admits for Alan powers and she will admit. - Lab Data Result diagrams: 01/27/19 18:40 01/27/19 18:40 Lab Results 01/27/19 01/27/19 01/27/19 Range/Units 18:40 18:40 18:40 WBC 4.6 (3.8-10.6) k/uL RBC 3.28 L (4.30-5.90) m/uL Hgb 8.9 L (13.0-17.5) gm/dL Hct 28.2 L (39.0-53.0) % MCV 86.1 D (80.0-100.0) fL MCH 27.2 (25.0-35.0) pg MCHC 31.6 (31.0-37.0) g/dL RDW 20.4 H (11.5-15.5) % Plt Count 189 D (150-450) k/uL Neutrophils % 63 % Lymphocytes % 26 % Monocytes % 7 % Eosinophils % 1 % Basophils % 1 % Neutrophils # 2.9 (1.3-7.7) k/uL Lymphocytes # 1.2 (1.0-4.8) k/uL Monocytes # 0.3 (0-1.0) k/uL Eosinophils # 0.1 (0-0.7) k/uL Basophils # 0.0 (0-0.2) k/uL Hypochromasia Moderate Anisocytosis Moderate Microcytosis Slight PT 12.2 H (9.0-12.0) sec INR 1.2 H (<1.2) APTT 25.8 (22.0-30.0) sec Sodium 141 (137-145) mmol/L Potassium 3.4 L (3.5-5.1) mmol/L Chloride 102 (98-107) mmol/L Carbon Dioxide 29 (22-30) mmol/L Anion Gap 10 mmol/L BUN 11 (9-20) mg/dL Creatinine 0.67 (0.66-1.25) mg/dL Est GFR (CKD-EPI)AfAm >90 (>60 ml/min/1.73 sqM) Est GFR (CKD-EPI)NonAf >90 (>60 ml/min/1.73 sqM) Glucose 124 H (74-99) mg/dL Calcium 8.1 L (8.4-10.2) mg/dL Total Bilirubin 0.5 (0.2-1.3) mg/dL AST 119 H (17-59) U/L ALT 44 (21-72) U/L Alkaline Phosphatase 184 H (38-126) U/L Total Protein 6.9 (6.3-8.2) g/dL Albumin 3.3 L (3.5-5.0) g/dL Gastric Occult Blood (Negative) Serum Alcohol 263 H* mg/dL Blood Type Blood Type Recheck Bld Type Recheck Status Antibody Screen Spec Expiration Date 01/27/19 01/27/19 Range/Units 18:40 18:40 WBC (3.8-10.6) k/uL RBC (4.30-5.90) m/uL Hgb (13.0-17.5) gm/dL Hct (39.0-53.0) % MCV (80.0-100.0) fL MCH (25.0-35.0) pg MCHC (31.0-37.0) g/dL RDW (11.5-15.5) % Plt Count (150-450) k/uL Neutrophils % % Lymphocytes % % Monocytes % % Eosinophils % % Basophils % % Neutrophils # (1.3-7.7) k/uL Lymphocytes # (1.0-4.8) k/uL Monocytes # (0-1.0) k/uL Eosinophils # (0-0.7) k/uL Basophils # (0-0.2) k/uL Hypochromasia Anisocytosis Microcytosis PT (9.0-12.0) sec INR (<1.2) APTT (22.0-30.0) sec Sodium (137-145) mmol/L Potassium (3.5-5.1) mmol/L Chloride (98-107) mmol/L Carbon Dioxide (22-30) mmol/L Anion Gap mmol/L BUN (9-20) mg/dL Creatinine (0.66-1.25) mg/dL Est GFR (CKD-EPI)AfAm (>60 ml/min/1.73 sqM) Est GFR (CKD-EPI)NonAf (>60 ml/min/1.73 sqM) Glucose (74-99) mg/dL Calcium (8.4-10.2) mg/dL Total Bilirubin (0.2-1.3) mg/dL AST (17-59) U/L ALT (21-72) U/L Alkaline Phosphatase (38-126) U/L Total Protein (6.3-8.2) g/dL Albumin (3.5-5.0) g/dL Gastric Occult Blood Positive (Negative) Serum Alcohol mg/dL Blood Type A Positive Blood Type Recheck A Pos Bld Type Recheck Status No Antibody Screen NEGATIVE Spec Expiration Date 01/30/2019 - 234 Disposition Clinical Impression: Upper GI hemorrhage Disposition: ADMITTED IP TO THIS HOSP Is patient prescribed a controlled substance at d/c from ED?: No Referrals: Yoon Phillips DO [Primary Care Provider] - 1-2 days Decision Time: 20:33
[2019-01-27 19:11] LABS: Anisocytosis Moderate; Basophils % (A) 1 %; Eosinophils # (A) 0.1 k/uL (0-0.7); Eosinophils % (A) 1 %; HCT 28.2 % (39.0-53.0); HGB 8.9 gm/dL (13.0-17.5); Hypochromasia Moderate; Lymphocytes # (A) 1.2 k/uL (1.0-4.8); Lymphocytes % (A) 26 %; MCH 27.2 pg (25.0-35.0); MCHC 31.6 g/dL (31.0-37.0); Mean Platelet Volume 7.8; Microcytosis Slight; Monocytes # (A) 0.3 k/uL (0-1.0); Monocytes % (A) 7 %; Neutrophils # (A) 2.9 k/uL (1.3-7.7); Neutrophils % (A) 63 %; Platelet Count 189 k/uL (150-450); RBC 3.28 m/uL (4.30-5.90); RDW 20.4 % (11.5-15.5); WBC 4.6 k/uL (3.8-10.6)
[2019-01-27 19:25] LABS: MCV 86.1 fL (80.0-100.0)
[2019-01-27 19:28] LABS: ALT 44 U/L (21-72); AST 119 U/L (17-59); African American GFR (CKD) >90 (>60 ml/min/1.73 sqM); Albumin 3.3 g/dL (3.5-5.0); Alkaline Phosphatase 184 U/L (38-126); Anion Gap 10 mmol/L; Blood Urea Nitrogen 11 mg/dL (9-20); Calcium 8.1 mg/dL (8.4-10.2); Carbon Dioxide 29 mmol/L (22-30); Chloride 102 mmol/L (98-107); Glucose 124 mg/dL (74-99); INR 1.2 (<1.2); Partial Thromboplastin Time 25.8 sec (22.0-30.0); Potassium 3.4 mmol/L (3.5-5.1); Prothrombin Time 12.2 sec (9.0-12.0); Sodium 141 mmol/L (137-145); Total Bilirubin 0.5 mg/dL (0.2-1.3); Total Protein 6.9 g/dL (6.3-8.2)
[2019-01-27 19:54] LABS: Alcohol 263 mg/dL
[2019-01-27] MEDS ORDERED: NALOXONE 0.4 MG/ML 1 ML VIAL IV PRN (20:33)
[2019-01-27] MEDS ORDERED: LORazepam 2 MG/ML INJ IV PRN ×2 (20:35)
[2019-01-27] MEDS ORDERED: SODIUM CHLORIDE 0.9% 1,000 ML IV SCH (20:45)
[2019-01-27] MEDS: THIAMINE 100 MG TAB PO SCH ×2 (20:46)
[2019-01-27 23:15] LABS: Glucose,Whole Blood 150 mg/dL (75-99)
[2019-01-27] MEDS ORDERED: ONDANSETRON 4 MG/2 ML VIAL IVP PRN (23:15)
[2019-01-27 23:45] LABS: Anisocytosis Moderate; HCT 27.8 % (39.0-53.0); HGB 8.8 gm/dL (13.0-17.5); Hypochromasia Moderate; MCH 27.5 pg (25.0-35.0); MCHC 31.7 g/dL (31.0-37.0); MCV 86.9 fL (80.0-100.0); Mean Platelet Volume 9.4; Microcytosis Slight; Platelet Count 173 k/uL (150-450); RDW 20.2 % (11.5-15.5); WBC 4.2 k/uL (3.8-10.6)
[2019-01-27 23:58] LABS: ALT 46 U/L (21-72); AST 121 U/L (17-59); African American GFR (CKD) >90 (>60 ml/min/1.73 sqM); Albumin 3.5 g/dL (3.5-5.0); Alkaline Phosphatase 184 U/L (38-126); Anion Gap 11 mmol/L; Blood Urea Nitrogen 13 mg/dL (9-20); Calcium 8.3 mg/dL (8.4-10.2); Carbon Dioxide 29 mmol/L (22-30); Chloride 101 mmol/L (98-107); Glucose 150 mg/dL (74-99); Magnesium 1.2 mg/dL (1.6-2.3); Phosphorus 2.3 mg/dL (2.5-4.5); Potassium 3.7 mmol/L (3.5-5.1); Sodium 141 mmol/L (137-145); Total Bilirubin 0.7 mg/dL (0.2-1.3); Total Protein 7.3 g/dL (6.3-8.2)
[2019-01-28] MEDS ORDERED: Potassium Replacement Protocol 1 EACH MISC MISCELLANE PRN (00:12)
[2019-01-28] MEDS ORDERED: Magnesium Replacement Protocol 1 EACH MISC MISCELLANE PRN (00:12)
[2019-01-28 00:13] LABS: Creatine Kinase MB 0.9 ng/mL (0.0-2.4)
[2019-01-28] MEDS ORDERED: PANTOPRAZOLE 40 MG/10 ML VIAL IVP ONE (00:27)
[2019-01-28] MEDS ORDERED: Phosphorus Replacement Protoco 1 EACH MISC MISCELLANE PRN (00:51)
[2019-01-28] MEDS: MAGNESIUM SULFATE-D5W PMX 1 GM in DEXTROSE/WATER 1 100ML.BAG IVPB SCH ×3 (00:57→03:31)
[2019-01-28] MEDS: LORazepam 2 MG/ML INJ IV PRN ×5 (00:57→17:08)
[2019-01-28] MEDS: PANTOPRAZOLE 40 MG/10 ML VIAL IVP SCH ×3 (00:57→20:57)
--- NOTE | 2019-01-28 01:40 | CT ---
EXAM: CT Abdomen and Pelvis With Intravenous Contrast CLINICAL HISTORY: Sudden onset of abdominal pain radiating to the back TECHNIQUE: Axial computed tomography images of the abdomen and pelvis with intravenous contrast. CTDI is 10.3 mGy and DLP is 369.1 mGy-cm. This CT exam was performed using one or more of the following dose reduction techniques: automated exposure control, adjustment of the mA and/or kV according to patient size, and/or use of iterative reconstruction technique. COMPARISON: 12/28/2018. FINDINGS: Lung bases: Minimal patchy ground-glass density is noted at the left lung base of uncertain significance and etiology. Subsegmental atelectasis noted posteriorly. Mediastinum: Small hiatal hernia. ABDOMEN: Liver: There is hepatomegaly with fatty infiltration of the liver. Similar findings were noted on the previous study. Gallbladder and bile ducts: The patient is status post cholecystectomy No ductal dilation. Pancreas: No inflammatory changes about the pancreas. No ductal dilation. Spleen: Spleen is normal in size. Adrenals: Unremarkable. No mass. Kidneys and ureters: No hydronephrosis. Stomach and bowel: Diverticulosis. There is inflammatory change within the mesentery posterior and medial to the mid descending sigmoid colon compatible with acute diverticulitis. No discrete abscess is noted. Diffuse thickening of the pak of the cecum is noted, best seen on series 202 image 56 and 57, of uncertain etiology. Inflammatory, infectious, and ischemic etiologies should be considered. No obstruction. PELVIS: Appendix: No findings to suggest acute appendicitis. Bladder: Mild distention of the bladder. Reproductive: Unremarkable as visualized. ABDOMEN and PELVIS: Intraperitoneal space: Unremarkable. No free air. No significant fluid collection. Bones/joints: Moderate degenerative disc disease of the spinal column is noted. Mild to moderate osteoarthritic changes about the sacroiliac joints are noted. No acute fracture. No dislocation. Soft tissues: Unremarkable. Vasculature: Unremarkable. No abdominal aortic aneurysm. Lymph nodes: Unremarkable. No enlarged lymph nodes. IMPRESSION: Inflammatory changes noted surrounding the mid descending colon compatible with acute diverticulitis. No discrete abscess formation is noted. Moreover, there is diffuse wall thickening of the cecum of uncertain etiology. Clinical correlation is necessary. Inflammatory and infectious etiology should be considered. Ischemic etiology should also be considered, although is felt to be less likely. Hepatomegaly and fatty infiltration of the liver.
[2019-01-28] MEDS: SODIUM CHLORIDE 0.9% 1,000 ML with POTASSIUM CHLORIDE 20 MEQ, MVI, ADULT NO.4 WITH VIT ... IV SCH ×10 (01:42→17:09)
[2019-01-28] MEDS ORDERED: POTASSIUM PHOSPHATE 10 MMOL in SODIUM CHLORIDE 0.9% 250 ML IV ONE (02:00)
[2019-01-28 05:29] LABS: Anisocytosis Moderate; Basophils % (A) 1 %; Eosinophils % (A) 1 %; HCT 26.4 % (39.0-53.0); HGB 8.4 gm/dL (13.0-17.5); Hypochromasia Moderate; Lymphocytes # (A) 1.1 k/uL (1.0-4.8); Lymphocytes % (A) 26 %; MCH 27.3 pg (25.0-35.0); MCHC 31.7 g/dL (31.0-37.0); MCV 86.3 fL (80.0-100.0); Mean Platelet Volume 7.8; Microcytosis Slight; Monocytes # (A) 0.3 k/uL (0-1.0); Monocytes % (A) 7 %; Neutrophils # (A) 2.6 k/uL (1.3-7.7); Neutrophils % (A) 64 %; Platelet Count 167 k/uL (150-450); RBC 3.06 m/uL (4.30-5.90); RDW 20.2 % (11.5-15.5); WBC 4.1 k/uL (3.8-10.6)
[2019-01-28 05:40] LABS: ALT 44 U/L (21-72); AST 113 U/L (17-59); African American GFR (CKD) >90 (>60 ml/min/1.73 sqM); Albumin 3.3 g/dL (3.5-5.0); Alkaline Phosphatase 172 U/L (38-126); Anion Gap 8 mmol/L; Blood Urea Nitrogen 15 mg/dL (9-20); Calcium 7.9 mg/dL (8.4-10.2); Carbon Dioxide 28 mmol/L (22-30); Chloride 103 mmol/L (98-107); Glucose 133 mg/dL (74-99); Magnesium 2.2 mg/dL (1.6-2.3); Phosphorus 3.2 mg/dL (2.5-4.5); Potassium 3.7 mmol/L (3.5-5.1); Sodium 139 mmol/L (137-145); Total Protein 6.9 g/dL (6.3-8.2)
[2019-01-28] MEDS: THIAMINE 100 MG TAB PO SCH ×2 (06:10→16:19)
[2019-01-28] MEDS: INSULIN ASPART (NovoLOG) 100 UNIT/ML VIAL SQ SCH ×4 (06:10→20:53)
[2019-01-28] MEDS: POTASSIUM CHLORIDE 10 MEQ in WATER FOR INJECTION 1 100ML.BAG IVPB SCH ×2 (06:13→08:06)
[2019-01-28 06:19] LABS: Glucose,Whole Blood 134 mg/dL (75-99)
[2019-01-28] MEDS: SYMBICORT 160-4.5 MCG INHALER INHALATION SCH ×2 (07:42→19:56)
--- NOTE | 2019-01-28 08:00 | HP ---
HISTORY AND PHYSICAL DATE OF SERVICE: 01/27/2019 I am covering for Dr. Alexys Marcus. CHIEF COMPLAINTS: Nausea, vomiting and GI bleed. HISTORY OF PRESENT ILLNESS: This 63-year-old gentleman with a past medical history of multiple medical problems including history of significant EtOH, cirrhosis of the liver, history of variceal bleeding, history of atrial fibrillation, history of COPD, CVA, diabetes mellitus type 2, history of hypertension, hyperlipidemia, history of pneumonia, history of pulmonary embolism, C difficile and MRSA being followed by Dr. Marcus in the outpatient is complaining is complaining of emesis and vomiting. The patient subsequently developed hematemesis and the patient was vomiting at least 4-5 times and coffee-ground material was noted and subsequently patient also had a black tarry stools today and the patient came to [facility] and admitted for evaluation and treatment. The patient was admitted to medical floor, but subsequently patient had multiple episodes of bowel movements and the patient transferred to ICU at this time. Hemoglobin is 8.9 and 8.8. There is no history of any fever, rigors. This patient has significant incessant retching at this time. PAST MEDICAL HISTORY: History of alcohol and complications with cirrhosis of the liver, variceal bleeding, history of COPD, CVA, TIA, diabetes mellitus type 2, hypertension, hyperlipidemia, history of pulmonary embolism, history of anxiety, depression. HOME MEDICATIONS: 1. Glucophage 500 mg p.o. b.i.d. 2. Catapres 0.1 b.i.d. 3. Norvasc 0.5 mg p.o. b.i.d. 4. Vitamin B1 100 mg p.o. daily. 5. Carafate 1 g a.c. t.i.d. 6. Protonix 40 mg b.i.d. 7. Multivitamins one p.o. daily. 8. Magnesium oxide 400 mg. 9. Katy 5 mg q.6h p.r.n. 10.Folic acid 1 mg daily. 11.Iron sulfate 325 mg p.o. daily. 12.Symbicort 160/0.5 two puffs b.i.d. ALLERGIES: ADHESIVE TAPES, LATEX, EGGS, LISINOPRIL TOMATO. FAMILY HISTORY: History of COPD, CVA, TIA, dementia. SOCIAL HISTORY: History of alcohol. No history of smoking. REVIEW OF SYSTEMS: ENT: No diminished vision, no diminished hearing. CARDIOVASCULAR: No angina. RESPIRATORY: As mentioned earlier. GI: As mentioned earlier. : No dysuria. NERVOUS SYSTEM: No numbness or weakness. ALLERGY: No asthma. MUSCULOSKELETAL: As mentioned earlier. HEMATOLOGY: neg ENDOCRINE: Diabetes. CONSTITUTIONAL: As mentioned earlier. PSYCHIATRY: As mentioned earlier. PHYSICAL EXAMINATION: Alert and oriented x3. Pulse is 148, blood pressure is 140/106, respiration 17, temperature 99.9, pulse ox 94% on room air. HEENT: Conjunctivae normal. Oral mucosa moist. NECK: No jugular venous distention. No lymph node enlargement. CARDIOVASCULAR: S1, S2. Tachycardiac. RESPIRATORY: Diminished breath sounds at the bases. Bilateral scattered rhonchi and crackles. ABDOMEN: Soft, obese. Flanks are dull. There is no guarding, no rigidity. No mass palpable. LEGS: No edema, no swelling. NERVOUS SYSTEM: Higher functions mentioned earlier. Moves all four limbs. No focal deficits. LYMPHATICS: No lymph node in neck or axilla. SKIN: No rash. JOINTS: No active deforming arthropathy. LAB STUDIES: WBC 4.8, hemoglobin is 8.8, sodium 140, potassium 3.7, calcium 8.3, magnesium is 1.2, and alkaline phosphatase is 184 and AST is 121. Serum alcohol 263. ASSESSMENT: 1. Upper gastrointestinal bleeding with acute blood loss anemia possibly with acute variceal bleeding. 2. Acute alcohol intoxication and acute delirium tremens. 3. Acute alcoholic hepatitis. 4. Hypomagnesemia. 5. Tachycardia possibly secondary to gastrointestinal bleed and withdrawals. 6. History atrial fibrillation. 7. History of chronic obstructive pulmonary disease. 8. History of cerebrovascular accident, transient ischemic attack. 9. Diabetes mellitus type 2. 10.Gastroesophageal reflux disease. 11.History of gastrointestinal bleed. 12.History of hypertension. 13.History of hyperlipidemia. 14.History of pneumonia. 15.History of prostate 16.History of pulmonary embolism. 17.History of esophageal varices and history of bleeding. 18.History of childhood seizures. 19.History of degenerative joint disease, sciatica. 20.History of MRSA, Clostridium difficile. 21.Anxiety, depression. 22.FULL CODE. RECOMMENDATIONS AND DISCUSSION: This 63-year-old gentleman who presented with multiple complex medical issues, at this time we will monitor the patient in ICU. Otherwise, serial H and H. We will type and cross 2 units just in case hemoglobin drops less than 7. Otherwise symptomatic treatment will be provided. CIWA protocol. Guarded prognosis because of multiple complex medical issues. Further recommendations to follow. See orders for details. Prognosis is extremely guarded because of multiple complex medical issues. DVT prophylaxis also. MMODL / IJN: [id number] / YANIV
[2019-01-28] MEDS ORDERED: PANTOPRAZOLE 40 MG/10 ML VIAL IV SCH (09:00)
[2019-01-28] MEDS: amLODIPine 5 MG TAB PO SCH ×2 (10:14→20:57)
[2019-01-28] MEDS: cloNIDine HCL 0.1 MG TAB PO SCH ×2 (10:14→20:57)
[2019-01-28 11:57] LABS: Anisocytosis Moderate; HCT 26.8 % (39.0-53.0); HGB 8.7 gm/dL (13.0-17.5); Hypochromasia Moderate; MCH 27.9 pg (25.0-35.0); MCHC 32.4 g/dL (31.0-37.0); MCV 86.1 fL (80.0-100.0); Mean Platelet Volume 9.4; Microcytosis Slight; Platelet Count 149 k/uL (150-450); RBC 3.12 m/uL (4.30-5.90); WBC 4.4 k/uL (3.8-10.6)
[2019-01-28 12:22] LABS: Glucose,Whole Blood 165 mg/dL (75-99)
--- NOTE | 2019-01-28 13:13 | CONS ---
CONSULTATION DATE OF SERVICE: 01/28/2019 REQUESTING PHYSICIAN: Dr. Yoon Phillips. REASON FOR CONSULTATION: Acute upper GI bleed. HISTORY OF PRESENT ILLNESS: The patient is a 63-year-old pleasant white male who was admitted to the hospital with several episodes of coffee-ground emesis and black tarry stools which started on night. He had about 3 or 4 episodes at home and after coming to the hospital had another couple of episodes of coffee-ground emesis. He has history of heavy alcohol abuse with alcoholic liver disease/cirrhosis of the liver. He was admitted to the hospital in October of this year for acute upper GI bleed, underwent an upper endoscopy by Dr. Hicks and was noted to have severe reflux esophagitis consistent with LA grade D reflux esophagitis. The patient since has been on Prilosec 20 mg twice daily and states that he has been taking the medication on a regular basis. He has also been complaining of some epigastric discomfort. He reports no fever, chills, or night sweats. He has been drinking actively and the last alcohol drink was about 2 days ago. At the time of admission hospital hemoglobin was 8.9, dropped to 8.4 g/dL. PAST MEDICAL HISTORY: His past medical history is significant for heavy alcohol abuse, history of gastroesophageal reflux disease, hypertension, hyperlipidemia, diabetes mellitus, and COPD. PAST SURGICAL HISTORY: EGD in October [address] Hicks that showed severe LA grade D reflux esophagitis and gastritis. No evidence of esophageal varices. MEDICATIONS: Medications at home include Glucophage, Catapres, Norvasc, vitamin B1, Carafate, Protonix, multivitamin, magnesium oxide, Johnston, folic acid, iron sulfate, and Symbicort. ALLERGIES: Allergies to LATEX, LISINOPRIL, ADHESIVE TAPE. FAMILY HISTORY: Father had COPD. Mother had TIA. SOCIAL HISTORY: Heavy alcohol abuse for almost 30 years duration. No history of smoking. REVIEW OF SYSTEMS: CARDIOPULMONARY: He denies any chest pain or shortness of breath. GENITOURINARY: No dysuria or hematuria. MUSCULOSKELETAL: Unremarkable other than chronic back pain. NEUROLOGY: Unremarkable. PSYCHIATRIC: Unremarkable. ENT/VISION: Unremarkable. CONSTITUTIONAL: No recent weight loss. No fever, chills, night sweats. ENDOCRINE: History of diabetes mellitus. HEMATOLOGY: Anemia. PHYSICAL EXAMINATION: On physical examination, he appears comfortable, in no apparent distress. Vital signs are stable. Blood pressure is 141/97, pulse rate is 126 and afebrile. HEENT examination unremarkable. Conjunctivae pink. Sclerae anicteric. Oral cavity, no lesions. NECK: No JVD or lymph node enlargement. CHEST: Clear to auscultation. HEART: Regular rate and rhythm. ABDOMEN: Soft. There was very minimal tenderness in the epigastric area. Rest of the abdomen was benign. Bowel sounds are positive. No organomegaly. EXTREMITIES: No pedal edema. SKIN: No rashes. NEURO: He is alert and oriented x3. No focal deficits. LABS: Labs done at the time of admission to the hospital: Alcohol level was 263. AST 121, ALT 46, T bilirubin 0.7. Hemoglobin was 8.8 and now it is 8.4, platelets 167, WBC 4.1. INR 1.2. He did have a CT of the abdomen and pelvis done in the emergency room yesterday it showed some inflammatory changes around the descending colon compatible with acute mild diverticulitis, wall thickening of the cecum noted and fatty infiltration of the liver with hepatomegaly. IMPRESSION: 1. Acute upper gastrointestinal bleed in this patient who has history of heavy alcohol abuse of several years duration, has several episodes of coffee-grounds emesis and black tarry stools. Hemoglobin dropped from 8.9 to 8.4 g/dL. He did not have any further episodes of bleeding since this morning. He had an upper endoscopy done by Dr. Hicks on November 02, 2018 that showed evidence of severe LA grade D reflux esophagitis and diffuse antral gastritis. No evidence of esophageal varices. Most likely the bleeding is related to severe esophagitis. 2. Heavy alcohol abuse. 3. Chronic liver disease/cirrhosis of the liver. 4. Diabetes mellitus/hypertension. RECOMMENDATIONS: 1. Start him on a clear liquid diet. 2. Continue with Protonix 40 mg q.12 hours. 3. CBC every 6 hours and transfuse if the hemoglobin is less than 7. 4. We will hold off on upper endoscopy at this time since the patient just had an EGD in October of this year. However, if he continues to have active ongoing bleeding, we will consider endoscopic intervention. At this time we will continue with conservative approach and had a lengthy discussion with the patient regarding importance of abstinence from alcohol. Thank you for this consultation. MMODL / IJN: [id number] /
--- NOTE | 2019-01-28 13:14 | P.CNPUL ---
History of Present Illness Consult date: 01/28/19 Requesting physician: Vani Jones Reason for consult: other (GI bleeding admitted to the ICU) Chief complaint: Nausea and vomiting blood History of present illness: This is a 63-year-old white male with history of alcoholism, liver cirrhosis, history of portal hypertension gastropathy, COPD, type 2 diabetes, hypertension, history of pulmonary embolism, and previous history of GI bleeding from gastric varices, patient presented to the ER yesterday with 1 day history of intermittent episodes of vomiting blood. Described mostly at times bright red, but more often was coffee-ground emesis. Patient also had some black tarry stools. His hemoglobin on admission was 8.9, patient was admitted initially to the regular medical floor, however shortly after he was admitted the patient had recurrent episodes of coffee-ground emesis, remained hemodynamically stable, but there was a concern that the patient may get any worse, he was transferred to the ICU and I was asked to see him on consultation. Since transfer to the ICU the patient had 2 episodes of coffee-ground emesis and black tarry stools. His hemoglobin remained stable at 8.7, did not require any blood transfusion since admission. His last EGD was 3 months ago, and he had a similar presentation and he was found to have esophagitis, portal hypertensive gastropathy, and mild duodenitis. Biopsies at that time showed chronic gastritis negative for H. pylori. During my evaluation in the ICU, patient was noted to be a bit anxious, tachycardic, hemodynamically stable, and in no distress. Patient was placed already on the Ciwa protocol for alcohol withdrawal. Patient denies any headache no blurred vision no dizziness, no chest pain, no palpitations, no nausea no vomiting at present no dysuria frequency or urgency and no hematuria. Patient was not taking any NSAIDs or any anticoagulation medication prior to admission. Review of Systems Constitutional: Denies weight loss fever or chills. HEENT: Denies any sore throat. Denies earache, denies dizziness or vertigo. Cardiac: Denies any chest pain palpitation or diaphoresis.. Respiratory: Denies cough wheezing shortness of breath or hemoptysis. Gastrointestinal: Refer to HPI. Genitourinary: Negative for hematuria, urgency, frequency, polyuria, dysuria, or penile discharge. Musculoskeletal: Negative for muscle aches, swelling, arthritis, and arthralgias. Neurologic: Negative for stroke or TIA. Endocrine: Denies any heat or cold intolerance. Skin: Negative for rash or itching. Psychiatric: History of alcoholism, no history of depression. Past Medical History Past Medical History: Atrial Fibrillation, Cancer, Chest Pain / Angina, COPD, CVA/TIA, Diabetes Mellitus, GERD/Reflux, GI Bleed, Hyperlipidemia, Hypertension, Pneumonia, Prostate Disorder, Pulmonary Embolus (PE) Additional Past Medical History / Comment(s): tachycardia/palpitations likely d/t alcohol withdrawal. hx of Alcoholism, chronic alcoholic cirrhosis with portal hypertension and previous history of upper and lower GI bleeding, esophageal varices, previous history of childhood seizure which he outgrew not taking any antiepileptic medication-possibly had recent seizure-2018 thought d/t alcohol withdrawal, pulmonary embolism x 2 R lung, TIA, diverticulosis, chronic lower bilateral extremity ankle edema if he walks alot, previous history of septicemia, cervical disc disease with chronic back pain with r sided sciatica, degenerative arthritis involving the lower back, tinnitus, vitamin D deficiency, iron anemia, chronic thrombocytopenia, denies MRSA, C-DIFF , scoliosis, scoliosis. pt had radiation 04/28 for prostate cancer History of Any Multi-Drug Resistant Organisms: C-DIFF, MRSA Date of last positivie culture/infection: n/a MDRO Source:: STOOL Past Surgical History: Appendectomy, Cholecystectomy Additional Past Surgical History / Comment(s): EGDs/esophageal varicies bandings, colonoscopies. Past Anesthesia/Blood Transfusion Reactions: No Reported Reaction Additional Past Anesthesia/Blood Transfusion Reaction / Comment(s): after appendix removed sob Past Psychological History: Anxiety, Depression Additional Psychological History / Comment(s): Pt lives in an apartment alone. Apartment complex has front door ramp and has an elevator. no pets. Sometimes his sister stays with him and cleans his home. He uses a cane to ambulate at times. He drives but currently has no car. He gets to [facility] by [employer] bus. He has a nebulizer and a glucometer.pt stated he was getting [facility] home care nurse but has'nt seen them in few days,not sure if they're still coming. Used to work in [employer]. Relates that he's not been a smoker. Denies recreational drug use. His left him many years ago he has adult children that he does not see very often. No experience. No travel history. No animal exposures Smoking Status: Never smoker Past Alcohol Use History: Abuse, Daily, Heavy Additional Past Alcohol Use History / Comment(s): pt reports drinking every 2-3 days in which he says he drinks a fifth of rum. Past Drug Use History: None Reported - Past Family History Mother Family Medical History: COPD, CVA/TIA, Dementia Additional Family Medical History / Comment(s): from a stroke Father Family Medical History: Pneumonia Additional Family Medical History / Comment(s): Father of pneumonia when he was close to 80 yrs old. Medications and Allergies Home Medications Medication Instructions Recorded Confirmed Type cloNIDine HCL [Catapres] 0.1 mg PO BID #60 tab 03/26/18 01/27/19 Rx Ferrous Sulfate [Iron (65 MG 325 mg PO DAILY 04/24/18 01/27/19 History Elemental)] amLODIPine [Norvasc] 5 mg PO BID 08/25/18 01/27/19 History metFORMIN HCL [Glucophage] 500 mg PO BID 10/19/18 01/27/19 History Sucralfate [Carafate] 1 gm PO AC-TID 30 Days #90 tab 10/24/18 01/27/19 Rx Magnesium Oxide [Mag-Ox] 400 mg PO DAILY #20 tablet 11/01/18 01/27/19 Rx Pantoprazole Sodium [Protonix] 40 mg PO BID #60 tablet. 11/04/18 01/27/19 Rx Multivitamins, Thera [Multivitamin 1 tab PO DAILY 12/12/18 01/27/19 History (formulary)] Budesonide-Formot 160-4.5 Mcg 2 puff INHALATION RT-BID #1 inh 12/15/18 01/27/19 Rx [Symbicort 160-4.5 Mcg Inhaler] Folic Acid 1 mg PO AC-LUNCH #30 tab 12/15/18 01/27/19 Rx HYDROcodone/APAP 5-325MG [Norman 1 tab PO Q6HR PRN #10 tab 12/28/18 01/27/19 Rx 5-325] Thiamine Mononitrate (Vit B1) 100 mg PO DAILY@1200 12/29/18 01/27/19 History [Vitamin B-1] Allergies Allergy/AdvReac Type Severity Reaction Status Date / Time adhesive tape Allergy Rash/Hives Verified 01/27/19 19:42 latex Allergy Unknown Verified 01/27/19 19:42 egg AdvReac Nausea & Verified 01/27/19 19:42 Vomiting lisinopril AdvReac EYES Verified 01/27/19 19:42 BURN&ITCH/WEAKNESS tomato AdvReac Nausea & Verified 01/27/19 19:42 Vomiting & Diarrhea Physical Exam Vitals: Vital Signs Temp Pulse Pulse Resp BP BP Pulse Ox 01/28/19 11:00 126 H 15 152/89 97 01/28/19 10:00 128 H 14 163/88 97 01/28/19 09:00 129 H 22 153/94 96 01/28/19 08:00 98.3 F 131 H 23 140/103 97 01/28/19 07:00 133 H 16 140/81 98 01/28/19 06:00 126 H 17 141/97 94 L 01/28/19 05:00 134 H 21 125/79 95 01/28/19 04:00 99.3 F 141 H 15 133/86 97 01/28/19 03:00 134 H 17 128/78 97 01/28/19 02:00 129 H 15 139/90 95 01/28/19 01:00 131 H 24 125/75 93 L 01/28/19 00:00 99.2 F 141 H 24 147/88 97 01/27/19 23:07 141 H 23 123/80 95 01/27/19 22:47 99.9 F H 131 H 17 131/87 95 01/27/19 22:06 148 H 146/106 01/27/19 21:46 98.3 F 98 18 119/68 98 01/27/19 21:03 99.4 F 01/27/19 19:20 98.1 F 116 H 18 126/68 98 01/27/19 18:33 98.0 F 105 H 18 123/80 98 Intake and Output 01/27/19 01/28/19 01/28/19 22:59 06:59 14:59 Intake Total 925 675 Output Total 1500 1275 Balance -575 -600 Intake: IV 925 375 Magnesium Sulfate-D5w Pmx 300 1 gm In Dextrose/Water 1 100ml.bag @ 100 mls/hr IVPB Q1H TANYA Rx#: [id number] Potassium Phosphate 10 250 mmol In Sodium Chloride 0 .9% 250 ml @ 125 mls/hr IV ONCE ONE Rx#:[id number] Sodium Chloride 0.9% 1, 375 375 000 ml @ 75 mls/hr IV . [id number] TANYA with Potassium Chloride 20 meq with Mvi, Adult No.4 with Vit K 10 ml with Thiamine 100 mg with Folic Acid 1 mg Rx#: [id number] Oral 300 Output: Urine 1500 1275 Other: Voiding Method Urinal Urinal # Bowel Movements 1 Weight 63.503 kg 78.8 kg General appearance: Revealed a 63-year-old white male anxious, on room air, in no distress. Head:;normocephalic and atraumatic. HEENT: Pupils are equal and reactive. Throat is clear. Neck: No neck masses no JVD, no stridor.. Heart: S1 S2. Regular rate and rhythm. Lungs: No crackles or wheezes are heard. Abdomen: Soft nontender no megaly no rebound no guarding. Positive bowel sounds. Extremities: No clubbing edema or cyanosis. Skin: No rashes.. Neurological: Alert oriented 3, anxious, no gross focal deficit. Psychiatric: Anxious mood, normal affect and normal mental status examination. Results - Laboratory Findings CBC and BMP: 01/28/19 11:45 01/28/19 04:54 PT/INR, D-dimer PT 12.2 sec (9.0-12.0) H 01/27/19 18:40 INR 1.2 (<1.2) H 01/27/19 18:40 Abnormal lab findings: Abnormal Labs 01/27/19 01/27/19 01/27/19 18:40 18:40 18:40 RBC 3.28 L Hgb 8.9 L Hct 28.2 L RDW 20.4 H Plt Count PT 12.2 H INR 1.2 H Potassium 3.4 L Creatinine Glucose 124 H POC Glucose (mg/dL) Calcium 8.1 L Phosphorus Magnesium AST 119 H Alkaline Phosphatase 184 H Total Creatine Kinase Albumin 3.3 L Serum Alcohol 263 H* 01/27/19 01/27/19 01/27/19 23:04 23:33 23:33 RBC 3.20 L Hgb 8.8 L Hct 27.8 L RDW 20.2 H Plt Count PT INR Potassium Creatinine 0.63 L Glucose 150 H POC Glucose (mg/dL) 150 H Calcium 8.3 L Phosphorus 2.3 L Magnesium 1.2 L AST 121 H Alkaline Phosphatase 184 H Total Creatine Kinase Albumin Serum Alcohol 01/27/19 01/28/19 01/28/19 23:33 04:54 04:54 RBC 3.06 L Hgb 8.4 L Hct 26.4 L RDW 20.2 H Plt Count PT INR Potassium Creatinine 0.60 L Glucose 133 H POC Glucose (mg/dL) Calcium 7.9 L Phosphorus Magnesium AST 113 H Alkaline Phosphatase 172 H Total Creatine Kinase 220 H Albumin 3.3 L Serum Alcohol 01/28/19 01/28/19 01/28/19 06:08 11:45 12:11 RBC 3.12 L Hgb 8.7 L Hct 26.8 L RDW 20.0 H Plt Count 149 L PT INR Potassium Creatinine Glucose POC Glucose (mg/dL) 134 H 165 H Calcium Phosphorus Magnesium AST Alkaline Phosphatase Total Creatine Kinase Albumin Serum Alcohol - Diagnostic Findings Additional studies: CT of the abdomen and pelvis was reviewed, there is evidence of hepatomegaly and fatty infiltration of the liver, evidence of inflammatory changes surrounding the mid descending colon compatible with acute diverticulitis. And thickening of the cecal wall, radiologist suspected inflammatory or infectious etiology also suspected ischemic changes. However clinically the patient had no abdominal symptoms or findings on examination. Assessment and Plan Assessment: Impression: 1 recurrent upper GI bleeding with acute blood loss anemia, most likely secondary to portal hypertension gastropathy, esophagitis, possible esophageal varices. 2 history of alcoholism, patient will be monitored closely for alcohol withdrawal, and he is already on the protocol. 3 acute alcohol intoxication on presentation 4 acute alcoholic hepatitis 5 history of multiple comorbidities including atrial fibrillation, COPD, type 2 diabetes, GERD, hypertension, hyperlipidemia, remote history of pulmonary embolism, history of seizures as a child, history of degenerative joint disease, history of C. diff colitis, Recommendation: Continue to monitor the patient in the ICU, continue serial hemoglobin and hematocrit, continue Protonix, continue ciwa protocol for alcohol withdrawal, continue IV fluids, Venodyne boots for DVT prophylaxis, hold any blood thinners or anticoagulations therapy at this point. We'll continue to follow. We will reevaluate in the next 24 hours. Time with Patient: Greater than 30
[2019-01-28] MEDS: HYDROmorphone 0.5 MG/0.5 ML SYRINGE IVP PRN (16:19)
[2019-01-28] MEDS: PIPERACILLIN-TAZOBACTAM 3.375 GM in SODIUM CHLORIDE 0.9% 100 ML IVPB SCH ×2 (16:20→23:37)
[2019-01-28 17:03] LABS: Glucose,Whole Blood 113 mg/dL (75-99)
--- NOTE | 2019-01-28 17:31 | PN ---
PROGRESS NOTE DATE OF SERVICE: 01/28/2019. I am covering for Dr. Marcus. This 63 -year-old gentleman was admitted with GI bleed, also had significant GI bleed in the past. The patient had an EGD and had esophageal banding also. The patient has significant history of alcohol intake also. The patient was transferred to ICU because of increased bleeding. CT scan of the abdomen showed some acute diverticulitis and as well as diffuse thickening of the cecum was also noted. Inflammatory etiology cannot be ruled out. No chest pain. No palpitations. PAST MEDICAL HISTORY: Reviewed. REVIEW OF SYSTEMS: CARDIOVASCULAR SYSTEM: No angina or palpitations. RESPIRATORY: As mentioned earlier. GI no nausea or vomiting. as mentioned earlier. Nervous system: Diffuse weakness. CURRENT MEDICATIONS: 1. Norvasc 5 mg p.o. b.i.d. 2. Symbicort 160/4.5 2 puffs b.i.d. 3. Catapres 0.1 b.i.d. 4. Dilaudid p.r.n. 5. NovoLog scale. 6. Ativan 1 mg p.r.n. 7. Magnesium, potassium protocol. 8. Narcan. 9. Zofran. 10.Protonix. PHYSICAL EXAM: Patient is alert, oriented x3. Pulse 115, blood pressure is 145/95, respiration 12, temperature normal, pulse ox 97% on room air. HEENT: Conjunctivae normal. Neck: No jugular venous distention. Cardiovascular: S1, S2 muffled. Respiration: Breath sounds diminished in the bases. Bilateral scattered rhonchi and crackles. ABDOMEN: Soft. Mild diffuse discomfort on palpation. No guarding. No rigidity. No mass palpable. LEGS: No edema. No swelling. NERVOUS SYSTEM: As mentioned earlier. No focal motor or sensory deficits. LYMPHATICS: No lymph nodes palpable in the neck, axillae or groin. SKIN: No ulcer, no rashes or bleeding. JOINTS: No active deforming arthropathy. LABS: WBC 4.5, hemoglobin is 8.7, glucose 165. ASSESSMENT: 1. Acute upper gastrointestinal bleeding with acute blood loss anemia, possible acute variceal bleeding. 2. Possible acute diverticulitis. 3. Acute alcohol intoxication, acute delirium tremens. 4. Acute alcohol hepatitis. 5. Hypomagnesemia. 6. Tachycardia, possibly secondary to gastrointestinal bleed and withdrawals. 7. History of atrial fibrillation. 8. History of chronic obstructive pulmonary disease. 9. History of cerebrovascular accident, transient ischemic attack. 10.Diabetes mellitus type 2. 11.History of gastroesophageal reflux disease. 12.History of gastrointestinal bleed. 13.History of hypertension. 14.History of hyperlipidemia. 15.History of pneumonia. 16.History of prostate disease. 17.History of pulmonary embolism. 18.History of esophageal varices with history of bleeding. 19.History of childhood seizures. 20.History of degenerative joint disease, sciatica. 21.History of MRSA, C difficile. 22.Anxiety, depression. 23.FULL CODE. RECOMMENDATIONS AND DISCUSSION: Recommend to continue current medications, management and symptomatic treatment. Otherwise, at this time, I recommend also recommend broad-spectrum IV antibiotics. Other than that, I would also recommend serum lactic acid. Continue to monitor. Continue the rest of medication. Monitor lytes. Monitor magnesium. Continue with CIWA protocol. Guarded prognosis because of multiple complex medical issues. Further recommendations to follow. Discussed with Dr. Sheehan. We will continue to monitor the patient's recurrence of bleeding. Will plan for EGD. MMODL / IJN: [id number] /
[2019-01-28 18:29] LABS: Anisocytosis Slight; HCT 26.1 % (39.0-53.0); HGB 8.1 gm/dL (13.0-17.5); Hypochromasia Marked; MCH 27.3 pg (25.0-35.0); Mean Platelet Volume 8.5; Platelet Count 154 k/uL (150-450); RBC 2.96 m/uL (4.30-5.90); RDW 19.9 % (11.5-15.5); WBC 4.9 k/uL (3.8-10.6)
[2019-01-28 20:49] LABS: Glucose,Whole Blood 87 mg/dL (75-99)
[2019-01-29 00:43] LABS: Anisocytosis Slight; HCT 25.4 % (39.0-53.0); HGB 8.1 gm/dL (13.0-17.5); Hypochromasia Marked; MCH 27.5 pg (25.0-35.0); MCHC 31.7 g/dL (31.0-37.0); MCV 86.7 fL (80.0-100.0); Mean Platelet Volume 9.7; Microcytosis Slight; Platelet Count 137 k/uL (150-450); RBC 2.93 m/uL (4.30-5.90); WBC 5.5 k/uL (3.8-10.6)
[2019-01-29] MEDS: SODIUM CHLORIDE 0.9% 1,000 ML with POTASSIUM CHLORIDE 20 MEQ, MVI, ADULT NO.4 WITH VIT ... IV SCH ×5 (04:05)
[2019-01-29 05:47] LABS: Anisocytosis Moderate; Basophils % (A) 0 %; Eosinophils # (A) 0.1 k/uL (0-0.7); Eosinophils % (A) 2 %; HCT 25.5 % (39.0-53.0); HGB 7.9 gm/dL (13.0-17.5); Hypochromasia Moderate; Lymphocytes # (A) 1.1 k/uL (1.0-4.8); Lymphocytes % (A) 20 %; MCH 27.1 pg (25.0-35.0); MCHC 31.1 g/dL (31.0-37.0); MCV 87.2 fL (80.0-100.0); Mean Platelet Volume 8.6; Monocytes # (A) 0.2 k/uL (0-1.0); Monocytes % (A) 4 %; Neutrophils # (A) 3.9 k/uL (1.3-7.7); Neutrophils % (A) 72 %; Platelet Count 152 k/uL (150-450); RBC 2.93 m/uL (4.30-5.90); WBC 5.4 k/uL (3.8-10.6)
[2019-01-29 05:56] LABS: ALT 41 U/L (21-72); AST 112 U/L (17-59); African American GFR (CKD) >90 (>60 ml/min/1.73 sqM); Alkaline Phosphatase 191 U/L (38-126); Anion Gap 6 mmol/L; Blood Urea Nitrogen 11 mg/dL (9-20); Carbon Dioxide 26 mmol/L (22-30); Chloride 105 mmol/L (98-107); Glucose 105 mg/dL (74-99); Magnesium 1.8 mg/dL (1.6-2.3); Phosphorus 2.4 mg/dL (2.5-4.5); Potassium 3.8 mmol/L (3.5-5.1); Sodium 137 mmol/L (137-145); Total Bilirubin 1.6 mg/dL (0.2-1.3); Total Protein 6.6 g/dL (6.3-8.2)
[2019-01-29] MEDS: INSULIN ASPART (NovoLOG) 100 UNIT/ML VIAL SQ SCH ×4 (06:52→23:55)
[2019-01-29] MEDS: THIAMINE 100 MG TAB PO SCH ×2 (06:54→18:00)
[2019-01-29] MEDS: MAGNESIUM SULFATE-D5W PMX 1 GM in DEXTROSE/WATER 1 100ML.BAG IVPB SCH ×2 (06:54→08:22)
[2019-01-29 07:04] LABS: Glucose,Whole Blood 102 mg/dL (75-99)
[2019-01-29] MEDS: SYMBICORT 160-4.5 MCG INHALER INHALATION SCH ×2 (07:53→19:19)
[2019-01-29] MEDS ORDERED: POTASSIUM PHOSPHATE 10 MMOL in SODIUM CHLORIDE 0.9% 250 ML IV ONE (08:00)
[2019-01-29] MEDS: PANTOPRAZOLE 40 MG/10 ML VIAL IVP SCH ×2 (08:23→20:21)
[2019-01-29] MEDS: amLODIPine 5 MG TAB PO SCH ×2 (08:23→20:20)
[2019-01-29] MEDS: PIPERACILLIN-TAZOBACTAM 3.375 GM in SODIUM CHLORIDE 0.9% 100 ML IVPB SCH ×3 (08:23→23:56)
[2019-01-29] MEDS: cloNIDine HCL 0.1 MG TAB PO SCH ×2 (08:23→20:20)
--- NOTE | 2019-01-29 11:14 | P.PN ---
Subjective Progress Note Date: 01/29/19 Principal diagnosis: Acute GI bleeding This is a 63-year-old white male with history of alcoholism, liver cirrhosis, history of portal hypertension gastropathy, COPD, type 2 diabetes, hypertension, history of pulmonary embolism, and previous history of GI bleeding from gastric varices, patient presented to the ER yesterday with 1 day history of intermittent episodes of vomiting blood. Described mostly at times bright red, but more often was coffee-ground emesis. Patient also had some black tarry stools. His hemoglobin on admission was 8.9, patient was admitted initially to the regular medical floor, however shortly after he was admitted the patient had recurrent episodes of coffee-ground emesis, remained hemodynamically stable, but there was a concern that the patient may get any worse, he was transferred to the ICU and I was asked to see him on consultation. Since transfer to the ICU the patient had 2 episodes of coffee-ground emesis and black tarry stools. His hemoglobin remained stable at 8.7, did not require any blood transfusion since admission. His last EGD was 3 months ago, and he had a similar presentation and he was found to have esophagitis, portal hypertensive gastropathy, and mild duodenitis. Biopsies at that time showed chronic gastritis negative for H. pylori. During my evaluation in the ICU, patient was noted to be a bit anxious, tachycardic, hemodynamically stable, and in no distress. Patient was placed already on the [place] protocol for alcohol withdrawal. Patient denies any headache no blurred vision no dizziness, no chest pain, no palpitations, no nausea no vomiting at present no dysuria frequency or urgency and no hematuria. Patient was not taking any NSAIDs or any anticoagulation medication prior to admission. Reevaluated today on 01/29/2019, patient remains in the ICU, hemodynamically stable, no evidence of active bleeding, hemoglobin is stable at 7.9 today, and it was 8.1 yesterday. Patient had no evidence of bloody bowel movements, his stool was noted to be dark brown, patient had no symptoms of hematemesis. He is hemodynamically stable, remains on the alcohol withdrawal protocol, and he seems to be working fine. No plans to perform EGD on this patient since he had EGD in the last few months. However if he bleeds again, he will be seen by gastroenterology for EGD. At this point I will recommend that we transfer the patient out of the ICU to a regular medical floor, and continue to monitor for any further episodes of GI bleeding. Objective - Vital Signs Vital signs: Vital Signs Temp 98.2 F 01/29/19 08:00 Pulse 93 01/29/19 11:00 Resp 20 01/29/19 11:00 BP 113/77 01/29/19 11:00 Pulse Ox 97 01/29/19 11:00 Intake & Output 01/28/19 01/29/19 01/29/19 18:59 06:59 18:59 Intake Total 2175 1475 725 Output Total 3950 3190 1350 Balance -1775 -1715 -625 Weight 74.8 kg Intake: IV 1375 1475 725 0.9 400 550 250 Magnesium Sulfate-D5w Pmx 100 1 gm In Dextrose/Water 1 100ml.bag @ 100 mls/hr IVPB Q1H [facility] Rx#: [id number] Piperacillin-Tazobactam 3 100 .375 gm In Sodium Chloride 0.9% 100 ml @ 25 mls/hr IVPB Q8HR TANYA Rx# :[id number] Sodium Chloride 0.9% 1, 975 825 375 000 ml @ 75 mls/hr IV . [id number] TANYA with Potassium Chloride 20 meq with Mvi, Adult No.4 with Vit K 10 ml with Thiamine 100 mg with Folic Acid 1 mg Rx#: [id number] Oral 800 Output: Urine 3950 3190 1350 Other: Voiding Method Urinal Urinal Urinal # Bowel Movements 1 - Exam General appearance: Revealed a 63-year-old white male anxious, on room air, in no distress. Head:;normocephalic and atraumatic. HEENT: Pupils are equal and reactive. Throat is clear. Neck: No neck masses no JVD, no stridor.. Heart: S1 S2. Regular rate and rhythm. Lungs: No crackles or wheezes are heard. Abdomen: Soft nontender no megaly no rebound no guarding. Positive bowel sounds. Extremities: No clubbing edema or cyanosis. Skin: No rashes.. Neurological: Alert oriented 3, anxious, no gross focal deficit. Psychiatric: Normal mood, affect and normal mental status examination. - Labs CBC & Chem 7: 01/29/19 05:19 01/29/19 05:19 Labs: Abnormal Lab Results - Last 24 Hours (Table) 01/28/19 01/28/19 01/28/19 Range/Units 11:45 12:11 16:52 RBC 3.12 L (4.30-5.90) m/uL Hgb 8.7 L (13.0-17.5) gm/dL Hct 26.8 L (39.0-53.0) % RDW 20.0 H (11.5-15.5) % Plt Count 149 L (150-450) k/uL Creatinine (0.66-1.25) mg/dL Glucose (74-99) mg/dL POC Glucose (mg/dL) 165 H 113 H (75-99) mg/dL Calcium (8.4-10.2) mg/dL Phosphorus (2.5-4.5) mg/dL Total Bilirubin (0.2-1.3) mg/dL AST (17-59) U/L Alkaline Phosphatase (38-126) U/L Albumin (3.5-5.0) g/dL 01/28/19 01/29/19 01/29/19 Range/Units 18:09 00:33 05:19 RBC 2.96 L 2.93 L 2.93 L (4.30-5.90) m/uL Hgb 8.1 L 8.1 L 7.9 L (13.0-17.5) gm/dL Hct 26.1 L 25.4 L 25.5 L (39.0-53.0) % RDW 19.9 H 20.0 H 20.0 H (11.5-15.5) % Plt Count 137 L (150-450) k/uL Creatinine (0.66-1.25) mg/dL Glucose (74-99) mg/dL POC Glucose (mg/dL) (75-99) mg/dL Calcium (8.4-10.2) mg/dL Phosphorus (2.5-4.5) mg/dL Total Bilirubin (0.2-1.3) mg/dL AST (17-59) U/L Alkaline Phosphatase (38-126) U/L Albumin (3.5-5.0) g/dL 01/29/19 01/29/19 Range/Units 05:19 06:52 RBC (4.30-5.90) m/uL Hgb (13.0-17.5) gm/dL Hct (39.0-53.0) % RDW (11.5-15.5) % Plt Count (150-450) k/uL Creatinine 0.63 L (0.66-1.25) mg/dL Glucose 105 H (74-99) mg/dL POC Glucose (mg/dL) 102 H (75-99) mg/dL Calcium 8.0 L (8.4-10.2) mg/dL Phosphorus 2.4 L (2.5-4.5) mg/dL Total Bilirubin 1.6 H (0.2-1.3) mg/dL AST 112 H (17-59) U/L Alkaline Phosphatase 191 H (38-126) U/L Albumin 3.0 L (3.5-5.0) g/dL Microbiology - Last 24 Hours (Table) 01/28/19 18:50 Urine Culture - Preliminary Urine,Clean Catch Assessment and Plan Assessment: Impression: 1 recurrent upper GI bleeding with acute blood loss anemia, most likely secondary to portal hypertension gastropathy, esophagitis, possible esophageal varices. 2 history of alcoholism, patient will be monitored closely for alcohol withdrawal, and he is already on the protocol. 3 acute alcohol intoxication on presentation 4 acute alcoholic hepatitis 5 history of multiple comorbidities including atrial fibrillation, COPD, type 2 diabetes, GERD, hypertension, hyperlipidemia, remote history of pulmonary embolism, history of seizures as a child, history of degenerative joint disease, history of C. diff colitis, Recommendation Transfer patient out of the ICU, patient will go to a regular medical floor. Continue to monitor CBC on a daily basis. Continue Protonix 40 mg IV push every 12 hours. Continue the alcohol withdrawal protocol. Continue Venodyne boots for DVT prophylaxis. Avoid any anticoagulants. Resume home meds. Reevaluate in the next 24 hours Time with Patient: Less than 30
[2019-01-29 12:17] LABS: Glucose,Whole Blood 114 mg/dL (75-99)
--- NOTE | 2019-01-29 13:35 | PN ---
PROGRESS NOTE DATE OF SERVICE: 01/29/2019 The patient is a 63-year-old white male with history of heavy alcoholism, admitted to the hospital with acute upper gastrointestinal bleed. He had multiple episodes of coffee-grounds emesis and black tarry stools. He was admitted to the intensive care unit with a hemoglobin of 8.8, and gradually dropped to 8.1 g/dL. Since yesterday, he did not have any further episodes of coffee-grounds emesis. Today had a brown bowel movement. He denies any abdominal pain, feeling much better. PHYSICAL EXAMINATION: Appears comfortable, no apparent distress. Vital signs are stable. Blood pressure 112/69, pulse rate 93, temperature 98. HEENT examination unremarkable. Conjunctivae pink. Sclerae anicteric. Oral cavity no lesions. NECK: No JVD. No lymph node enlargement. CHEST: Clear to auscultation. HEART: Regular rate and rhythm. ABDOMEN was soft, was nontender, nondistended. Bowel sounds are positive. EXTREMITIES: No pedal edema. SKIN: No rashes. NEUROLOGIC: Alert and oriented x3. No focal deficits. LABS: WBC 5.5, hemoglobin 8.1, platelets 137. Basic metabolic panel is within normal limits. T bili is 1.6, AST 112, ALT 41, alkaline phosphatase 191. Serum alcohol on admission was 263. IMPRESSION: 1. Acute upper gastrointestinal bleed, most likely related to severe esophagitis/gastritis. He did have an upper endoscopy by Dr. Hicks in October of this year that showed LA grade D reflux esophagitis and gastritis and no evidence of esophageal varices. 2. Elevated serum transaminases and total bilirubin probably related to chronic alcoholic liver disease. 3. Heavy alcohol abuse. RECOMMENDATIONS: 1. Advance diet as tolerated. 2. Continue with Protonix 40 mg twice daily. 3. We will hold off on any endoscopic intervention at the present time since he had an upper endoscopy in October of this year. 4. Treat him with aggressive acid suppressive therapy with Protonix 40 mg twice daily. 5. He can be discharged to the floor today. Thank you for this consultation. ROCIO / MICHAEL: [id number] /
[2019-01-29 17:04] LABS: Glucose,Whole Blood 111 mg/dL (75-99)
--- NOTE | 2019-01-29 17:49 | PN ---
PROGRESS NOTE DATE OF SERVICE: 01/29/2019. I am covering for Dr. Marcus. This 63-year-old gentleman who was admitted with GI bleed also had possible acute diverticulitis. The patient also had acute alcohol intoxication and delirium tremens, present on admission. Hemoglobin is currently at 7.9. Dr. Sheehan is following the patient closely. EGD has been not been planned at this time. Bilirubin is 1.7, magnesium improved to 1.8. PAST MEDICAL HISTORY: Past medical history reviewed. REVIEW OF SYSTEMS: CARDIOVASCULAR SYSTEM: No angina or palpitations. RESPIRATORY: As mentioned earlier. GI as mentioned earlier. : No dysuria or hematuria. CENTRAL NERVOUS SYSTEM: No numbness or weakness. CURRENT MEDICATIONS ARE: Reviewed and include: 1. Norvasc 5 mg p.o. b.i.d. 2. Symbicort 4.5 two puffs b.i.d. 3. Catapres 0.1 b.i.d. 4. Dilaudid 0.5 mg p.r.n. 5. NovoLog scale. 6. Ativan 1 mg CIWA protocol. 7. Magnesium, potassium replacement protocol. 8. Narcan. 9. Zofran. 10.Protonix. 11.Vitamin B1. 12.Thiamine. PHYSICAL EXAM: Patient is alert, oriented x3. Pulse 89, blood pressure 119/78, respiration 15. Temperature 98.1, pulse ox 97% on room air. HEENT: Conjunctivae normal. NECK: No jugular venous distention. CARDIOVASCULAR: S1, S2 muffled. RESPIRATORY: Breath sounds diminished in the bases. A few scattered rhonchi and crackles. ABDOMEN: Soft, obese, nontender. No mass palpable. LEGS: No edema. No swelling. NERVOUS SYSTEM: Higher functions as mentioned earlier. Moves all four limbs. No focal motor or sensory deficits. LYMPHATICS: No lymph nodes palpable in the neck, axillae or groin. SKIN: No ulcer, no rashes, no bleeding. JOINTS: No active deforming arthropathy. LABS: WBC 5.5, hemoglobin 7.9 and glucose 105 and phosphorus 2.4. Total bilirubin is 1.6. ASSESSMENT: 1. Acute upper gastrointestinal bleeding with acute blood loss anemia, possibly acute variceal bleeding. 2. Possible acute diverticulitis. 3. Acute alcohol intoxication with acute delirium tremens. 4. Acute alcoholic hepatitis. 5. Hypomagnesemia. 6. Tachycardia possibly secondary to gastrointestinal bleed and withdrawals. 7. History of atrial fibrillation. 8. History of chronic obstructive pulmonary disease. 9. History of cerebrovascular accident, transient ischemic attack. 10.Diabetes mellitus type 2. 11.History of gastroesophageal reflux disease. 12.History of gastrointestinal bleed. 13.History of hypertension. 14.History of hyperlipidemia. 15.History of pneumonia. 16.History of prostate disorder. 17.History of pulmonary embolism. 18.History of esophageal varices with history of bleeding. 19.History of childhood seizures. 20.History of degenerative joint disease and sciatica. 21.History of MRSA, C difficile. 22.Anxiety, depression. 23.FULL CODE. RECOMMENDATIONS AND DISCUSSION: Recommend to continue current medications, management and symptomatic treatment. Otherwise, as mentioned earlier, discussed with Dr. Sheehan, who is following the patient closely at this time. Hemoglobin is 7.2. We will monitor hemoglobin further and the diet is being advanced. Continue with proton pump inhibitors. Gastroenterology holding off endoscopic intervention since the patient had an upper endoscopy in October this year. We will continue to monitor and Dr. Marcus will follow. MMODL / IJN: [id number] /
[2019-01-29] MEDS: LORazepam 2 MG/ML INJ IV PRN (20:34)
[2019-01-29 21:58] LABS: Glucose,Whole Blood 109 mg/dL (75-99)
[2019-01-30 04:42] LABS: Anisocytosis Slight; HCT 25.7 % (39.0-53.0); Hypochromasia Marked; MCH 27.1 pg (25.0-35.0); MCV 87.5 fL (80.0-100.0); Mean Platelet Volume 8.6; Platelet Count 152 k/uL (150-450); RBC 2.94 m/uL (4.30-5.90); RDW 19.7 % (11.5-15.5); WBC 5.6 k/uL (3.8-10.6)
[2019-01-30 04:50] LABS: ALT 40 U/L (21-72); AST 101 U/L (17-59); African American GFR (CKD) >90 (>60 ml/min/1.73 sqM); Alkaline Phosphatase 199 U/L (38-126); Anion Gap 8 mmol/L; Blood Urea Nitrogen 12 mg/dL (9-20); Calcium 8.3 mg/dL (8.4-10.2); Carbon Dioxide 23 mmol/L (22-30); Chloride 106 mmol/L (98-107); Glucose 109 mg/dL (74-99); Magnesium 1.9 mg/dL (1.6-2.3); Potassium 3.8 mmol/L (3.5-5.1); Sodium 137 mmol/L (137-145); Total Bilirubin 1.1 mg/dL (0.2-1.3); Total Protein 6.6 g/dL (6.3-8.2)
[2019-01-30 07:19] LABS: Glucose,Whole Blood 108 mg/dL (75-99)
[2019-01-30] MEDS: PANTOPRAZOLE 40 MG/10 ML VIAL IVP SCH ×2 (08:13→21:30)
[2019-01-30] MEDS: PIPERACILLIN-TAZOBACTAM 3.375 GM in SODIUM CHLORIDE 0.9% 100 ML IVPB SCH ×3 (08:14→23:23)
[2019-01-30] MEDS: THIAMINE 100 MG TAB PO SCH ×2 (08:14→17:32)
[2019-01-30] MEDS: INSULIN ASPART (NovoLOG) 100 UNIT/ML VIAL SQ SCH ×4 (08:21→21:27)
[2019-01-30 08:22] LABS: Glucose,Whole Blood 196 mg/dL (75-99)
[2019-01-30] MEDS: SYMBICORT 160-4.5 MCG INHALER INHALATION SCH ×2 (08:22→20:47)
--- NOTE | 2019-01-30 11:30 | P.PN ---
Subjective Progress Note Date: 01/30/19 Principal diagnosis: GI bleeding This is a 63-year-old white male with history of alcoholism, liver cirrhosis, history of portal hypertension gastropathy, COPD, type 2 diabetes, hypertension, history of pulmonary embolism, and previous history of GI bleeding from gastric varices, patient presented to the ER yesterday with 1 day history of intermittent episodes of vomiting blood. Described mostly at times bright red, but more often was coffee-ground emesis. Patient also had some black tarry stools. His hemoglobin on admission was 8.9, patient was admitted initially to the regular medical floor, however shortly after he was admitted the patient had recurrent episodes of coffee-ground emesis, remained hemodynamically stable, but there was a concern that the patient may get any worse, he was transferred to the ICU and I was asked to see him on consultation. Since transfer to the ICU the patient had 2 episodes of coffee-ground emesis and black tarry stools. His hemoglobin remained stable at 8.7, did not require any blood transfusion since admission. His last EGD was 3 months ago, and he had a similar presentation and he was found to have esophagitis, portal hypertensive gastropathy, and mild duodenitis. Biopsies at that time showed chronic gastritis negative for H. pylori. During my evaluation in the ICU, patient was noted to be a bit anxious, tachycardic, hemodynamically stable, and in no distress. Patient was placed already on the [place] protocol for alcohol withdrawal. Patient denies any headache no blurred vision no dizziness, no chest pain, no palpitations, no nausea no vomiting at present no dysuria frequency or urgency and no hematuria. Patient was not taking any NSAIDs or any anticoagulation medication prior to admission. Reevaluated today on 01/29/2019, patient remains in the ICU, hemodynamically stable, no evidence of active bleeding, hemoglobin is stable at 7.9 today, and it was 8.1 yesterday. Patient had no evidence of bloody bowel movements, his stool was noted to be dark brown, patient had no symptoms of hematemesis. He is hemodynamically stable, remains on the alcohol withdrawal protocol, and he seems to be working fine. No plans to perform EGD on this patient since he had EGD in the last few months. However if he bleeds again, he will be seen by gastroenterology for EGD. At this point I will recommend that we transfer the patient out of the ICU to a regular medical floor, and continue to monitor for any further episodes of GI bleeding. On 01/20/2019 patient seen in follow-up. Awake and alert and oriented 3, in no acute distress, denies any further GI bleeding, hematemesis, no melena, hemodynamically stable, room air pulse ox is 98%, patient is afebrile, no complaints of abdominal pain. No shortness of breath, lung sounds are clear to auscultation, patient is in sinus rhythm, no signs of DTs. He is on PPI therapy. Room air pulse ox is 98%. No acute events overnight, Objective - Vital Signs Vital signs: Vital Signs Temp 98.1 F 01/30/19 08:00 Pulse 93 01/30/19 08:00 Resp 18 01/30/19 08:00 BP 107/81 01/30/19 08:00 Pulse Ox 98 01/30/19 08:00 Intake & Output 01/29/19 01/30/19 01/30/19 18:59 06:59 18:59 Intake Total 850 1080 120 Output Total 1350 2650 600 Balance -500 -1570 -480 Weight 74.1 kg Intake: IV 850 280 120 0.9 300 280 20 Magnesium Sulfate-D5w Pmx 100 1 gm In Dextrose/Water 1 100ml.bag @ 100 mls/hr IVPB Q1H [facility] Rx#: [id number] Piperacillin-Tazobactam 3 100 .375 gm In Sodium Chloride 0.9% 100 ml @ 25 mls/hr IVPB Q8HR [facility] Rx# :[id number] Sodium Chloride 0.9% 1, 450 000 ml @ 75 mls/hr IV . [id number] TANYA with Potassium Chloride 20 meq with Mvi, Adult No.4 with Vit K 10 ml with Thiamine 100 mg with Folic Acid 1 mg Rx#: [id number] Oral 800 Output: Urine 1350 2650 600 Other: Voiding Method Urinal Urinal # Bowel Movements 1 - Exam GENERAL EXAM: Alert, wasn't, 63-year-old white male on room air with a pulse ox of 98% comfortable in no apparent distress. HEAD: Normocephalic/atraumatic. EYES: Normal reaction of pupils, equal size. Conjunctiva pink, sclera white. NOSE: Clear with pink turbinates. THROAT: No erythema or exudates. NECK: No masses, no JVD, no thyroid enlargement, no adenopathy. CHEST: No chest wall deformity. Symmetrical expansion. LUNGS: Equal air entry with no crackles, wheeze, rhonchi or dullness. CVS: Regular rate and rhythm, normal S1 and S2, no gallops, no murmurs, no rubs ABDOMEN: Soft, nontender. No hepatosplenomegaly, normal bowel sounds, no guarding or rigidity. EXTREMITIES: No clubbing, no edema, no cyanosis, 2+ pulses and upper and lower extremities. MUSCULOSKELETAL: Muscle strength and tone normal. SPINE: No scoliosis or deformity SKIN: No rashes CENTRAL NERVOUS SYSTEM: Alert and oriented -3. No focal deficits, tone is normal in all 4 extremities. PSYCHIATRIC: Alert and oriented -3. Appropriate affect. Intact judgment and insight. - Labs CBC & Chem 7: 01/30/19 04:06 01/30/19 04:06 Labs: Abnormal Lab Results - Last 24 Hours (Table) 01/29/19 01/29/19 01/29/19 Range/Units 12:05 16:54 21:47 RBC (4.30-5.90) m/uL Hgb (13.0-17.5) gm/dL Hct (39.0-53.0) % RDW (11.5-15.5) % Glucose (74-99) mg/dL POC Glucose (mg/dL) 114 H 111 H 109 H (75-99) mg/dL Calcium (8.4-10.2) mg/dL AST (17-59) U/L Alkaline Phosphatase (38-126) U/L Albumin (3.5-5.0) g/dL 01/30/19 01/30/19 01/30/19 Range/Units 04:06 04:06 07:08 RBC 2.94 L (4.30-5.90) m/uL Hgb 8.0 L (13.0-17.5) gm/dL Hct 25.7 L (39.0-53.0) % RDW 19.7 H (11.5-15.5) % Glucose 109 H (74-99) mg/dL POC Glucose (mg/dL) 108 H (75-99) mg/dL Calcium 8.3 L (8.4-10.2) mg/dL AST 101 H (17-59) U/L Alkaline Phosphatase 199 H (38-126) U/L Albumin 3.0 L (3.5-5.0) g/dL 01/30/19 Range/Units 08:10 RBC (4.30-5.90) m/uL Hgb (13.0-17.5) gm/dL Hct (39.0-53.0) % RDW (11.5-15.5) % Glucose (74-99) mg/dL POC Glucose (mg/dL) 196 H (75-99) mg/dL Calcium (8.4-10.2) mg/dL AST (17-59) U/L Alkaline Phosphatase (38-126) U/L Albumin (3.5-5.0) g/dL Microbiology - Last 24 Hours (Table) 01/28/19 18:50 Urine Culture - Final Urine,Clean Catch 01/28/19 16:01 Blood Culture - Preliminary Blood No Growth after 24 hours Assessment and Plan Plan: 1 recurrent upper GI bleeding with acute blood loss anemia, most likely secondary to portal hypertension gastropathy, esophagitis, possible esophageal varices. 2 history of alcoholism, patient will be monitored closely for alcohol withdrawal, and he is already on the protocol. 3 acute alcohol intoxication on presentation 4 acute alcoholic hepatitis 5 history of multiple comorbidities including atrial fibrillation, COPD, type 2 diabetes, GERD, hypertension, hyperlipidemia, remote history of pulmonary embolism, history of seizures as a child, history of degenerative joint disease, history of C. diff colitis Plan: Continue PPI therapy, IV fluids, monitor for signs of delirium tremens. Hemodynamically patient remains stable, no further episodes of bleeding, hemoglobin is stable at 8.0, no acute issues overnight, no specific complaints. No difficulty breathing. No chest pain, possibly may be downgraded to medical surgical liters today. Remains stable. I performed a history & physical examination of the patient and discussed their management with my nurse practitioner, Aline Collins. I reviewed the nurse practitioner's note and agree with the documented findings and plan of care. Lung sounds are positive for clear breath sounds. The findings and the impression was discussed with the patient. I attest to the documentation by the nurse practitioner. Time with Patient: Less than 30
[2019-01-30] MEDS: amLODIPine 5 MG TAB PO SCH ×2 (11:59→21:31)
[2019-01-30] MEDS: cloNIDine HCL 0.1 MG TAB PO SCH ×2 (11:59→21:31)
[2019-01-30 12:00] LABS: Glucose,Whole Blood 96 mg/dL (75-99)
[2019-01-30 12:13] LABS: Glucose,Whole Blood 90 mg/dL (75-99)
[2019-01-30 17:10] LABS: Glucose,Whole Blood 102 mg/dL (75-99)
--- NOTE | 2019-01-30 20:02 | PN ---
PROGRESS NOTE DATE OF SERVICE: 01/30/2019. The patient is a 63-year-old pleasant white male admitted to the hospital with acute upper gastrointestinal bleed. He is doing much better. He was transferred from the intensive care unit today. He is on Protonix 40 mg twice daily. No further bleeding. He denies any abdominal pain. PHYSICAL EXAMINATION: Appears comfortable. No apparent distress. Vital signs stable. Blood pressure 125/89. Pulse rate 94. Temperature 98. HEENT: Examination unremarkable. Conjunctivae pink. Sclerae anicteric. Oral cavity no lesion. NECK: No JVD or lymph node enlargement. CHEST: Clear to auscultation. HEART: Regular rate and rhythm. ABDOMEN: Soft. Bowel sounds are positive. No organomegaly. EXTREMITIES: No pedal edema. SKIN: No rashes. NEUROLOGIC: Alert and oriented x3. No focal deficits. LABS: WBC 5.6, hemoglobin 8, platelets 152 and rest of the labs are within normal limits. IMPRESSION: 1. Nausea, vomiting, coffee-ground emesis, probably related to severe reflux esophagitis and portal hypertensive gastropathy. He did have an upper endoscopy by Dr. Hicks on November 02, 2018 that showed esophagitis and portal hypertensive gastropathy. The patient on IV Protonix 40 mg twice daily and doing better. No further bleeding. Hemoglobin stable at 8 g/dL. 2. History of heavy alcohol abuse. 3. Elevated AST more than ALT, all suggestive of chronic liver disease with underlying cirrhosis of the liver and portal hypertension. RECOMMENDATIONS: 1. Abstinence from alcohol. 2. Continue to advance diet as tolerated. 3. Protonix 40 mg twice daily. 4. If he remains stable, he can be discharged home tomorrow with outpatient followup in a couple of weeks. Thank you for this consultation. MMODL / IJN: [id number] /
[2019-01-30 20:59] LABS: Glucose,Whole Blood 111 mg/dL (75-99)
--- NOTE | 2019-01-30 22:33 | P.PN ---
Subjective Progress Note Date: 01/30/19 Anders Aguilar is a 63 yo M with hx alcoholism, esophageal varices, history UGIB who presented with recurrent coffee ground emesis. 01/30. Pt's hgb is stable, has not required transfusion. No current plans for EGD this admission. He is feeling better today and appetite improving. He is open to going to an alcohol treatment center on discharge. Objective - Vital Signs Vital signs: Vital Signs Temp 98.2 F 01/30/19 21:33 Pulse 85 01/30/19 21:33 Resp 18 01/30/19 21:33 BP 124/75 01/30/19 21:33 Pulse Ox 98 01/30/19 21:33 Intake & Output 01/30/19 01/30/19 01/31/19 06:59 18:59 06:59 Intake Total 1080 670 Output Total 2650 1100 Balance -1570 -430 Weight 74.1 kg Intake: IV 280 130 0.9 280 30 Piperacillin-Tazobactam 3 100 .375 gm In Sodium Chloride 0.9% 100 ml @ 25 mls/hr IVPB Q8HR [facility] Rx# :[id number] Oral 800 540 Output: Urine 2650 1100 Other: Voiding Method Urinal Urinal # Voids 1 - Exam Gen: alert, thin, NAD. vitals reviewed HEENT: mucus membranes moist CV: RRR, no murmur Lungs: CTAB Abd: diffuse tenderness Neruo: no tremor - Labs CBC & Chem 7: 01/30/19 04:06 01/30/19 04:06 Labs: Abnormal Lab Results - Last 24 Hours (Table) 01/30/19 01/30/19 01/30/19 Range/Units 04:06 04:06 07:08 RBC 2.94 L (4.30-5.90) m/uL Hgb 8.0 L (13.0-17.5) gm/dL Hct 25.7 L (39.0-53.0) % RDW 19.7 H (11.5-15.5) % Glucose 109 H (74-99) mg/dL POC Glucose (mg/dL) 108 H (75-99) mg/dL Calcium 8.3 L (8.4-10.2) mg/dL AST 101 H (17-59) U/L Alkaline Phosphatase 199 H (38-126) U/L Albumin 3.0 L (3.5-5.0) g/dL 01/30/19 01/30/19 01/30/19 Range/Units 08:10 17:01 20:56 RBC (4.30-5.90) m/uL Hgb (13.0-17.5) gm/dL Hct (39.0-53.0) % RDW (11.5-15.5) % Glucose (74-99) mg/dL POC Glucose (mg/dL) 196 H 102 H 111 H (75-99) mg/dL Calcium (8.4-10.2) mg/dL AST (17-59) U/L Alkaline Phosphatase (38-126) U/L Albumin (3.5-5.0) g/dL Microbiology - Last 24 Hours (Table) 01/28/19 16:01 Blood Culture - Preliminary Blood No Growth after 48 hours Assessment and Plan (1) Upper GI bleed Current Visit: Yes Status: Acute Code(s): K92.2 - GASTROINTESTINAL HEMORRHAGE, UNSPECIFIED SNOMED Code(s): 25499698 (2) Acute blood loss anemia Current Visit: No Status: Acute Code(s): D62 - ACUTE POSTHEMORRHAGIC ANEMIA SNOMED Code(s): 186786332 (3) Alcohol dependence with withdrawal Current Visit: No Status: Acute Code(s): F10.239 - ALCOHOL DEPENDENCE WITH WITHDRAWAL, UNSPECIFIED SNOMED Code(s): 44610329 (4) Alcohol intoxication Current Visit: No Status: Acute Code(s): F10.929 - ALCOHOL USE, UNSPECIFIED WITH INTOXICATION, UNSPECIFIED SNOMED Code(s): 09118243 (5) Alcoholic cirrhosis of liver Current Visit: No Status: Acute Code(s): K70.30 - ALCOHOLIC CIRRHOSIS OF LIVER WITHOUT ASCITES SNOMED Code(s): 108169374 (6) Alcoholic hepatitis without ascites Current Visit: No Status: Acute Code(s): K70.10 - ALCOHOLIC HEPATITIS WI THOUT ASCITES SNOMED Code(s): 313986210 Plan: 1. UGIB. Hgb stable. Continue to follow. Continue PPI. Encourage alcohol cessation. CM consulted to help with dispo. no plan for EGD this admission 2. Alcohol withdrawal. CIWA protocol 3. HTN. Norvasc
[2019-01-31] MEDS: THIAMINE 100 MG TAB PO SCH ×2 (08:16→17:37)
[2019-01-31] MEDS: cloNIDine HCL 0.1 MG TAB PO SCH ×2 (08:16→21:21)
[2019-01-31] MEDS: INSULIN ASPART (NovoLOG) 100 UNIT/ML VIAL SQ SCH ×4 (08:16→21:21)
[2019-01-31] MEDS: amLODIPine 5 MG TAB PO SCH ×2 (08:16→21:21)
[2019-01-31] MEDS: PANTOPRAZOLE 40 MG/10 ML VIAL IVP SCH (08:16)
[2019-01-31 08:17] LABS: Glucose,Whole Blood 110 mg/dL (75-99)
[2019-01-31 08:18] LABS: Magnesium 1.7 mg/dL (1.6-2.3); Phosphorus 4.4 mg/dL (2.5-4.5)
[2019-01-31] MEDS: HYDROmorphone 0.5 MG/0.5 ML SYRINGE IVP PRN (08:19)
[2019-01-31] MEDS: PIPERACILLIN-TAZOBACTAM 3.375 GM in SODIUM CHLORIDE 0.9% 100 ML IVPB SCH ×3 (08:26→23:31)
[2019-01-31 08:53] LABS: African American GFR (CKD) >90 (>60 ml/min/1.73 sqM); Anion Gap 9 mmol/L; Blood Urea Nitrogen 14 mg/dL (9-20); Calcium 8.5 mg/dL (8.4-10.2); Carbon Dioxide 22 mmol/L (22-30); Chloride 107 mmol/L (98-107); Glucose 99 mg/dL (74-99); Potassium 4.1 mmol/L (3.5-5.1); Sodium 138 mmol/L (137-145)
[2019-01-31 09:15] LABS: Anisocytosis Moderate; HCT 25.4 % (39.0-53.0); HGB 8.1 gm/dL (13.0-17.5); Hypochromasia Marked; MCH 27.9 pg (25.0-35.0); MCHC 31.9 g/dL (31.0-37.0); MCV 87.4 fL (80.0-100.0); Mean Platelet Volume 8.4; Platelet Count 145 k/uL (150-450); RBC 2.91 m/uL (4.30-5.90); RDW 20.2 % (11.5-15.5); WBC 4.8 k/uL (3.8-10.6)
[2019-01-31] MEDS: SYMBICORT 160-4.5 MCG INHALER INHALATION SCH ×2 (09:16→20:59)
[2019-01-31 11:29] LABS: Glucose,Whole Blood 116 mg/dL (75-99)
--- NOTE | 2019-01-31 12:05 | CDI ---
Documentation Clarification Form Date: 01/31/2019 11:46:30 AM From: Camille EstrellaOleaVIGNESH ulloa, CCDS Admit Date: 01/27/2019 8:33:00 PM Patient Name: Anders Aguilar Visit Number: [id number] Discharge Date: ATTENTION: The Clinical Documentation Specialists (CDI) and [facility] Coding Staff appreciate your assistance in clarifying documentation. Please respond to the clarification below the line at the bottom and electronically sign. The CDI & [facility] Coding staff will review the response and follow-up if needed. Please note: Queries are made part of the Legal Health Record. If you have any questions, please contact the author of this message via ITS. Dr. Alexys Marcus: The patient presented with the following: Nausea, vomiting & upper GI bleed. Developed hematemesis & vomiting coffee ground material, subsequently had black tarry stools today. History/Risk Factors: Significant EtOH, Cirrhosis of the liver, Variceal bleeding, Atrial fibrillation, COPD, CVA, DM II, Hypertension, Hyperlipidemia, Pneumonia, PE, C Diff & MRSA. Clinical Indicators: Per the History & Physical: Upper GI bleeding with ABLA possibly with acute variceal bleeding, Acute alcohol intoxication & acute DTs, Acute alcoholic hepatitis. Per the 01/28 attending PN: Possible acute diverticulitis. Lab findings: Hgb 8.9*, Hct 28.2*, Serum Alcohol 263^^. Radiology findings: CT Abdomen/Pelvis: Inflammatory changes noted surrounding the mid descending colon compatible with acute diverticulitis. Vital Signs: P 105^ Treatment: IV PPI, IV fluid bolus, IV Reglan, IV Ativan, IV fluid rate 120, IV Zofran, IV MagSulfate, IV Dilaudid, IV K Phosphate, IV Kcl, Consults: Pulm/Critical Care: admit to ICU with GI bleeding. GI: Acute GI bleeding. In your professional opinion, can you please clarify if the patient is admitted with the following: Upper GI bleeding with ABLA due to: Acute variceal bleeding Acute diverticulitis with or without bleeding Acute Esophagitis with or without bleeding Acute Gastritis with or without bleeding Acute Hepatitis Other, please specify: Unable to determine o With or due to Alcoholism o Without Alcoholism (Last Revision: August 2017) Acute variceal bleeding MTDD
--- NOTE | 2019-01-31 14:07 | P.PN ---
Subjective Progress Note Date: 01/31/19 Principal diagnosis: GI bleed This is a 63-year-old white male with history of alcoholism, liver cirrhosis, history of portal hypertension gastropathy, COPD, type 2 diabetes, hypertension, history of pulmonary embolism, and previous history of GI bleeding from gastric varices, patient presented to the ER yesterday with 1 day history of intermittent episodes of vomiting blood. Described mostly at times bright red, but more often was coffee-ground emesis. Patient also had some black tarry stools. His hemoglobin on admission was 8.9, patient was admitted initially to the regular medical floor, however shortly after he was admitted the patient had recurrent episodes of coffee-ground emesis, remained hemodynamically stable, but there was a concern that the patient may get any worse, he was transferred to the ICU and I was asked to see him on consultation. Since transfer to the ICU the patient had 2 episodes of coffee-ground emesis and black tarry stools. His hemoglobin remained stable at 8.7, did not require any blood transfusion since admission. His last EGD was 3 months ago, and he had a similar presentation and he was found to have esophagitis, portal hypertensive gastropathy, and mild duodenitis. Biopsies at that time showed chronic gastritis negative for H. pylori. During my evaluation in the ICU, patient was noted to be a bit anxious, tachycardic, hemodynamically stable, and in no distress. Patient was placed already on the Ciwa protocol for alcohol withdrawal. Patient denies any headache no blurred vision no dizziness, no chest pain, no palpitations, no nausea no vomiting at present no dysuria frequency or urgency and no hematuria. Patient was not taking any NSAIDs or any anticoagulation medication prior to admission. Reevaluated today on 01/29/2019, patient remains in the ICU, hemodynamically stable, no evidence of active bleeding, hemoglobin is stable at 7.9 today, and it was 8.1 yesterday. Patient had no evidence of bloody bowel movements, his stool was noted to be dark brown, patient had no symptoms of hematemesis. He is hemodynamically stable, remains on the alcohol withdrawal protocol, and he seems to be working fine. No plans to perform EGD on this patient since he had EGD in the last few months. However if he bleeds again, he will be seen by gastroenterology for EGD. At this point I will recommend that we transfer the patient out of the ICU to a regular medical floor, and continue to monitor for any further episodes of GI bleeding. On 01/20/2019 patient seen in follow-up. Awake and alert and oriented 3, in no acute distress, denies any further GI bleeding, hematemesis, no melena, hemodynamically stable, room air pulse ox is 98%, patient is afebrile, no complaints of abdominal pain. No shortness of breath, lung sounds are clear to auscultation, patient is in sinus rhythm, no signs of DTs. He is on PPI therapy. Room air pulse ox is 98%. No acute events overnight, The patient is seen today 01/31/2019 in follow-up on the regular medical floor. He is currently sitting up in a chair at the bedside. Awake and alert in no acute distress. No further issues with GI bleeding, hematocrit emesis or m mariia. He is maintaining O2 saturations in the high 90s on room air. He's afebrile. Hematologically stable. Blood and urine cultures reveal no growth. White count 4.8. Hemoglobin 8.1. Creatinine 0.82. Remains on IV Protonix. Objective - Vital Signs Vital signs: Vital Signs Temp 97.3 F L 01/31/19 07:00 Pulse 84 01/31/19 07:00 Resp 14 01/31/19 08:00 BP 115/76 01/31/19 07:00 Pulse Ox 99 01/31/19 07:00 Intake & Output 01/30/19 01/31/19 01/31/19 18:59 06:59 18:59 Intake Total 670 800 Output Total 1100 500 575 Balance -430 300 -575 Intake: IV 130 0.9 30 Piperacillin-Tazobactam 3 100 .375 gm In Sodium Chloride 0.9% 100 ml @ 25 mls/hr IVPB Q8HR [facility] Rx# :[id number] Oral 540 800 Output: Urine 1100 500 575 Other: Voiding Method Urinal Urinal Urinal # Voids 1 2 - Exam GENERAL EXAM: Alert, pleasant 63-year-old gentleman on room air with a pulse ox of 99% comfortable in no apparent distress. HEAD: Normocephalic/atraumatic. EYES: Normal reaction of pupils, equal size. Conjunctiva pink, sclera white. NOSE: Clear with pink turbinates. THROAT: No erythema or exudates. NECK: No masses, no JVD, no thyroid enlargement, no adenopathy. CHEST: No chest wall deformity. Symmetrical expansion. LUNGS: Equal air entry with no crackles, wheeze, rhonchi or dullness. CVS: Regular rate and rhythm, normal S1 and S2, no gallops, no murmurs, no rubs ABDOMEN: Soft, nontender. No hepatosplenomegaly, normal bowel sounds, no guarding or rigidity. EXTREMITIES: No clubbing, no edema, no cyanosis, 2+ pulses and upper and lower extremities. MUSCULOSKELETAL: Muscle strength and tone normal. SPINE: No scoliosis or deformity SKIN: No rashes CENTRAL NERVOUS SYSTEM: No focal deficits, tone is normal in all 4 extremities. PSYCHIATRIC: Alert and oriented -3. Appropriate affect. Intact judgment and insight. - Labs CBC & Chem 7: 01/31/19 07:41 01/31/19 07:41 Labs: Abnormal Lab Results - Last 24 Hours (Table) 01/30/19 01/30/19 01/31/19 Range/Units 17:01 20:56 07:41 RBC 2.91 L (4.30-5.90) m/uL Hgb 8.1 L (13.0-17.5) gm/dL Hct 25.4 L (39.0-53.0) % RDW 20.2 H (11.5-15.5) % Plt Count 145 L (150-450) k/uL POC Glucose (mg/dL) 102 H 111 H (75-99) mg/dL 01/31/19 01/31/19 Range/Units 08:14 11:27 RBC (4.30-5.90) m/uL Hgb (13.0-17.5) gm/dL Hct (39.0-53.0) % RDW (11.5-15.5) % Plt Count (150-450) k/uL POC Glucose (mg/dL) 110 H 116 H (75-99) mg/dL Microbiology - Last 24 Hours (Table) 01/28/19 16:01 Blood Culture - Preliminary Blood No Growth after 48 hours Assessment and Plan Assessment: Impression: 1 recurrent upper GI bleeding with acute blood loss anemia, most likely secondary to portal hypertension gastropathy, esophagitis, possible esophageal varices. 2 history of alcoholism, patient will be monitored closely for alcohol withdrawal, and he is already on the protocol. 3 acute alcohol intoxication on presentation 4 acute alcoholic hepatitis 5 history of multiple comorbidities including atrial fibrillation, COPD, type 2 diabetes, GERD, hypertension, hyperlipidemia, remote history of pulmonary embolism, history of seizures as a child, history of degenerative joint disease, history of C. diff colitis Plan: The patient was seen and evaluated by Dr. Harkins. He is stable from the pulmonary and critical care standpoint. We'll follow the patient on an as- needed basis. I, the cosigning physician, performed a history & physical examination of the patient. Lungs sounds are clear. Maintaining good O2 saturations in the 90s on room air. I discussed the assessment and plan of care with my nurse practitioner, Xuan Gresham. I attest to the above note as dictated by her.
--- NOTE | 2019-01-31 17:09 | P.PN ---
Subjective Progress Note Date: 01/31/19 Anders Aguilar is a 63 yo M with hx alcoholism, esophageal varices, history UGIB who presented with recurrent coffee ground emesis. 01/30. Pt's hgb is stable, has not required transfusion. No current plans for EGD this admission. He is feeling better today and appetite improving. He is open to going to an alcohol treatment center on discharge. 01/31/2019 no overnight events. Vital signs stable. Hemoglobin 8.1. Maintained on CIWA protocol. Mild nausea last night, subsided. Consuming 100% of lunch with no nausea or vomiting. No abdominal pain. Mild tremors, improving. Denies chest pain, palpitations or shortness of breath. Objective - Vital Signs Vital signs: Vital Signs Temp 97.3 F L 01/31/19 07:00 Pulse 84 01/31/19 07:00 Resp 14 01/31/19 16:00 BP 115/76 01/31/19 07:00 Pulse Ox 99 01/31/19 07:00 Intake & Output 01/30/19 01/31/19 01/31/19 18:59 06:59 18:59 Intake Total 670 800 540 Output Total 2299 987 2515 Balance -430 300 -635 Intake: IV 130 0.9 30 Piperacillin-Tazobactam 3 100 .375 gm In Sodium Chloride 0.9% 100 ml @ 25 mls/hr IVPB Q8HR [facility] Rx# :[id number] Oral 540 800 540 Output: Urine 9148 763 5063 Other: Voiding Method Urinal Urinal Urinal # Voids 1 2 - Exam Gen: alert, thin, NAD. vitals reviewed HEENT: mucus membranes moist CV: RRR, no murmur Lungs: CTAB Abd: diffuse tenderness Neruo: Minimal tremor - Labs CBC & Chem 7: 01/31/19 07:41 01/31/19 07:41 Labs: Abnormal Lab Results - Last 24 Hours (Table) 01/30/19 01/30/19 01/31/19 Range/Units 17:01 20:56 07:41 RBC 2.91 L (4.30-5.90) m/uL Hgb 8.1 L (13.0-17.5) gm/dL Hct 25.4 L (39.0-53.0) % RDW 20.2 H (11.5-15.5) % Plt Count 145 L (150-450) k/uL POC Glucose (mg/dL) 102 H 111 H (75-99) mg/dL 01/31/19 01/31/19 Range/Units 08:14 11:27 RBC (4.30-5.90) m/uL Hgb (13.0-17.5) gm/dL Hct (39.0-53.0) % RDW (11.5-15.5) % Plt Count (150-450) k/uL POC Glucose (mg/dL) 110 H 116 H (75-99) mg/dL Microbiology - Last 24 Hours (Table) 01/28/19 16:01 Blood Culture - Preliminary Blood No Growth after 48 hours Assessment and Plan Assessment: (1) recurrent Upper GI bleed Current Visit: Yes Status: Acute Code(s): K92.2 - GASTROINTESTINAL HEMORRHAGE, UNSPECIFIED SNOMED Code(s): 33243985 (2) Acute blood loss anemia, suspect related to portal gastropathy, esophagitis, esophageal varices secondary to chronic alcoholism Current Visit: No Status: Acute Code(s): D62 - ACUTE POSTHEMORRHAGIC ANEMIA SNOMED Code(s): 714575807 (3) Alcohol dependence with withdrawal Current Visit: No Status: Acute Code(s): F10.239 - ALCOHOL DEPENDENCE WITH WITHDRAWAL, UNSPECIFIED SNOMED Code(s): 41089124 (4) Alcohol intoxication Current Visit: No Status: Acute Code(s): F10.929 - ALCOHOL USE, UNSPECIFIED WITH INTOXICATION, UNSPECIFIED SNOMED Code(s): 87273984 (5) Alcoholic cirrhosis of liver Current Visit: No Status: Acute Code(s): K70.30 - ALCOHOLIC CIRRHOSIS OF LIVER WITHOUT ASCITES SNOMED Code(s): 821366047 (6) Alcoholic hepatitis without ascites Current Visit: No Status: Acute Code(s): K70.10 - ALCOHOLIC HEPATITIS WITHOUT ASCITES SNOMED Code(s): 743608555 Plan: 1. UGIB. Hgb stable. Continue to follow. Continue PPI. Encourage alcohol cessation. CM consulted to help with dispo. no plan for EGD this admission 2. Alcohol withdrawal. CIWA protocol 3. HTN. Norvasc 01/31/2019 continue on current medication regime ,monitoring and symptomatic treatment. Maintain PPI, alcohol cessation reinforced. Increase ambulation as tolerated. Case management to assist with rehab coordination for discharge. Discharge planning in progress for tomorrow. The impression and plan of care has been dictated as directed. : I performed a history and examination of this patient, discussed the same with the dictator. I agree with the dictator's note ,documented as a scribe. Any additional findings or plans will be noted.
[2019-01-31 17:18] LABS: Glucose,Whole Blood 129 mg/dL (75-99)
--- NOTE | 2019-01-31 18:48 | PN ---
PROGRESS NOTE DATE OF SERVICE: January 31, 2019 Patient is a 63-year-old pleasant white male admitted to hospital with acute upper gastrointestinal bleed. He is doing much better. Bleeding has resolved. On Protonix 40 mg p.o. twice daily. He had no bowel movements for the last 2 days. On a regular diet, tolerating well. PHYSICAL EXAMINATION: Appears comfortable, no apparent distress. Vital signs stable. Blood pressure 115/76, pulse 84, temperature 97.3. HEENT examination unremarkable. Conjunctivae pink. Sclerae anicteric. Oral cavity no lesions. NECK: No JVD or lymph node enlargement. CHEST: Clear to auscultation. HEART: Regular rate and rhythm. ABDOMEN: Soft. Bowel sounds are positive. No organomegaly. EXTREMITIES: No pedal edema. SKIN: No rashes. NEUROLOGIC: Alert and oriented x3. No focal deficits. LABS: From today WBC 4.8, hemoglobin 8.1, platelets 145. IMPRESSION: 1. Acute upper gastrointestinal bleed secondary to severe reflux esophagitis. EGD in October of [address] Hicks revealed portal hypertensive gastropathy and a severe reflux esophagitis. On Protonix 40 mg twice daily, doing better. No further episodes of bleeding. 2. History of liver cirrhosis, appears to be stable. 3. Heavy alcohol use. RECOMMENDATIONS: 1. Continue with Protonix 40 mg twice daily on an outpatient basis. 2. Anti-reflux measures were discussed with the patient. 3. Small frequent meals. 4. Abstinence from alcohol. 5. Follow up in the office in 3 weeks following discharge from the hospital. Thank you for this consultation. MMODL / IJN: [id number] /
[2019-01-31 21:04] LABS: Glucose,Whole Blood 114 mg/dL (75-99)
[2019-01-31] MEDS: PANTOPRAZOLE 40 MG TABLET PO SCH (21:21)
[2019-02-01 07:31] LABS: Glucose,Whole Blood 108 mg/dL (75-99)
[2019-02-01] MEDS: INSULIN ASPART (NovoLOG) 100 UNIT/ML VIAL SQ SCH ×2 (07:46→12:26)
[2019-02-01] MEDS: PANTOPRAZOLE 40 MG TABLET PO SCH (08:43)
[2019-02-01] MEDS: THIAMINE 100 MG TAB PO SCH (08:43)
[2019-02-01] MEDS: amLODIPine 5 MG TAB PO SCH (08:43)
[2019-02-01] MEDS: PIPERACILLIN-TAZOBACTAM 3.375 GM in SODIUM CHLORIDE 0.9% 100 ML IVPB SCH (08:43)
[2019-02-01] MEDS: cloNIDine HCL 0.1 MG TAB PO SCH (08:43)
[2019-02-01] MEDS: SYMBICORT 160-4.5 MCG INHALER INHALATION SCH (08:59)
[2019-02-01 12:17] LABS: Glucose,Whole Blood 104 mg/dL (75-99)
[2019-02-01 13:07] VITALS: BP 120/78; PULSE 94; RESP 15; TEMP 98.2
--- NOTE | 2019-02-01 16:12 | P.DS ---
Providers Date of admission: 01/27/19 20:33 Expected date of discharge: 02/01/19 Attending physician: Alexys Marcus MD Consults: 01/27/19 20:33 Consult Physician Urgent Consulting Provider: Gabbi Sheehan Consult Reason/Comments: gi hemorrhage Do you want consulting provider notified?: Yes 01/28/19 03:54 Consult Physician Routine Consulting Provider: Barry Marcus Consult Reason/Comments: icu Do you want consulting provider notified?: Yes, Notify in am Primary care physician: Yoon [facility] Course: Final Diagnoses: (1) recurrent Upper GI bleed Current Visit: Yes Status: Acute Code(s): K92.2 - GASTROINTESTINAL HEMORRHAGE, UNSPECIFIED SNOMED Code(s): 24794320 (2) Acute blood loss anemia, suspect related to portal gastropathy, esophagitis, esophageal varices secondary to chronic alcoholism Current Visit: No Status: Acute Code(s): D62 - ACUTE POSTHEMORRHAGIC ANEMIA SNOMED Code(s): 548486664 (3) Alcohol dependence with withdrawal Current Visit: No Status: Acute Code(s): F10.239 - ALCOHOL DEPENDENCE WITH WITHDRAWAL, UNSPECIFIED SNOMED Code(s): 14957520 (4) Alcohol intoxication Current Visit: No Status: Acute Code(s): F10.929 - ALCOHOL USE, UNSPECIFIED WITH INTOXICATION, UNSPECIFIED SNOMED Code(s): 04736158 (5) Alcoholic cirrhosis of liver Current Visit: No Status: Acute Code(s): K70.30 - ALCOHOLIC CIRRHOSIS OF LIVER WITHOUT ASCITES SNOMED Code(s): 776338338 (6) Alcoholic hepatitis without ascites Current Visit: No Status: Acute Code(s): K70.10 - ALCOHOLIC HEPATITIS WITHOUT ASCITES SNOMED Code(s): 679807304 Hospital course:Anders Aguilar is a 63 yo M with hx alcoholism, esophageal varices, history UGIB who presented with recurrent coffee ground emesis. 01/30. Pt's hgb is stable, has not required transfusion. No current plans for EGD this admission. He is feeling better today and appetite improving. He is open to going to an alcohol treatment center on discharge. 01/31/2019 no overnight events. Vital signs stable. Hemoglobin 8.1. Maintained on CIWA protocol. Mild nausea last night, subsided. Consuming 100% of lunch with no nausea or vomiting. No abdominal pain. Mild tremors, improving. Denies chest pain, palpitations or shortness of breath. hemoglobin stable maintained on PPI, alcohol cessation reinforced. Patient reports he is proceeding to [place] on Wednesday. Significant clinical improvement. Patient is being discharged home in a stable condition with guarded prognosis. - Exam Gen: Alert and oriented 3, no acute distress CV: RRR, no murmur Lungs: CTAB Abd: soft, nondistended, nontender, positive bowel sounds Neruo: no focal deficits. The impression and plan of care has been dictated as directed. : I performed a history and examination of this patient, discussed the same with the dictator. I agree with the dictator's note ,documented as a scribe. Any additional findings or plans will be noted. Time taken: 35 minutes Patient Condition at Discharge: Stable Plan - Discharge Summary New Discharge Prescriptions: New Amoxic-Pot Clav 875-125Mg [Augmentin 875-125] 1 tab PO Q12HR #4 tablet Continue cloNIDine HCL [Catapres] 0.1 mg PO BID #60 tab Ferrous Sulfate [Iron (65 MG Elemental)] 325 mg PO DAILY amLODIPine [Norvasc] 5 mg PO BID metFORMIN HCL [Glucophage] 500 mg PO BID Sucralfate [Carafate] 1 gm PO AC-TID 30 Days #90 tab Magnesium Oxide [Mag-Ox] 400 mg PO DAILY #20 tablet Pantoprazole Sodium [Protonix] 40 mg PO BID #60 tablet. Multivitamins Thera [Multivitamin (formulary)] 1 tab PO DAILY Folic Acid 1 mg PO AC-LUNCH #30 tab Budesonide-Formot 160-4.5 Mcg [Symbicort 160-4.5 Mcg Inhaler] 2 puff INHALATION RT-BID #1 inh HYDROcodone/APAP 5-325MG [Alto 5-325] 1 tab PO Q6HR PRN #10 tab PRN Reason: Pain Thiamine Mononitrate (Vit B1) [Vitamin B-1] 100 mg PO DAILY@1200 Discharge Medication List cloNIDine HCL [Catapres] 0.1 mg PO BID #60 tab 03/26/18 [Rx] Ferrous Sulfate [Iron (65 MG Elemental)] 325 mg PO DAILY 04/24/18 [History] amLODIPine [Norvasc] 5 mg PO BID 08/25/18 [History] metFORMIN HCL [Glucophage] 500 mg PO BID 10/19/18 [History] Sucralfate [Carafate] 1 gm PO AC-TID 30 Days #90 tab 10/24/18 [Rx] Magnesium Oxide [Mag-Ox] 400 mg PO DAILY #20 tablet 11/01/18 [Rx] Pantoprazole Sodium [Protonix] 40 mg PO BID #60 tablet. 11/04/18 [Rx] Multivitamins, Thera [Multivitamin (formulary)] 1 tab PO DAILY 12/12/18 [History] Budesonide-Formot 160-4.5 Mcg [Symbicort 160-4.5 Mcg Inhaler] 2 puff INHALATION RT-BID #1 inh 12/15/18 [Rx] Folic Acid 1 mg PO AC-LUNCH #30 tab 12/15/18 [Rx] HYDROcodone/APAP 5-325MG [Alto 5-325] 1 tab PO Q6HR PRN #10 tab 12/28/18 [Rx] Thiamine Mononitrate (Vit B1) [Vitamin B-1] 100 mg PO DAILY@1200 12/29/18 [History] Amoxic-Pot Clav 875-125Mg [Augmentin 875-125] 1 tab PO Q12HR #4 tablet 02/01/19 [Rx] Follow up Appointment(s)/Referral(s): [facility], [NON-STAFF] - 1-2 Days Yoon Phillips DO [Primary Care Provider] - 02/06/19 10:30 am Ambulatory/Diagnostic Orders: Complete Blood Count w/diff [LAB.AMB] Time Frame: 3 Days, Location: None Selected Patient Instructions/Handouts: Gastrointestinal Bleeding (DC), Abuse of Alcohol (DC), Alcohol Withdrawal (DC) Activity/Diet/Wound Care/Special Instructions: [place] on Wednesday no EtOH Discharge Disposition: HOME WITH HOME HEALTH SERVICES
== END 2019-02-01 14:03 | disposition home health service (06) | DRG 432 ==
LOC: EC 18:31 → 4SSUR 20:33 → 2SICU 23:46 → 4MS4W 01-30 14:46
PROVIDERS: ADMIT Family Medicine; ATTEND Family Medicine
DX: K70.30 Alcoholic cirrhosis of liver without ascites (principal); I85.11 Secondary esophageal varices with bleeding; F10.221 Alcohol dependence with intoxication delirium; K76.6 Portal hypertension; D62 Acute posthemorrhagic anemia; F10.231 Alcohol dependence with withdrawal delirium; K57.32 Diverticulitis of large intestine without perforation or abscess without bleeding; K31.89 Other diseases of stomach and duodenum; E11.9 Type 2 diabetes mellitus without complications; E78.5 Hyperlipidemia, unspecified; E83.42 Hypomagnesemia; F32.9 Major depressive disorder, single episode, unspecified; F41.9 Anxiety disorder, unspecified; I10 Essential (primary) hypertension; I48.91 Unspecified atrial fibrillation; J44.9 Chronic obstructive pulmonary disease, unspecified; K21.0 Gastro-esophageal reflux disease with esophagitis; K29.50 Unspecified chronic gastritis without bleeding; K70.10 Alcoholic hepatitis without ascites; M19.90 Unspecified osteoarthritis, unspecified site; M54.31 Sciatica, right side; M47.9 Spondylosis, unspecified; H93.19 Tinnitus, unspecified ear; E55.9 Vitamin D deficiency, unspecified; D69.6 Thrombocytopenia, unspecified; G89.29 Other chronic pain; M54.9 Dorsalgia, unspecified; Z79.51 Long term (current) use of inhaled steroids; Z79.84 Long term (current) use of oral hypoglycemic drugs; Z79.899 Other long term (current) drug therapy; Z88.8 Allergy status to other drugs, medicaments and biological substances; Z91.040 Latex allergy status; Z87.01 Personal history of pneumonia (recurrent); Z86.73 Personal history of transient ischemic attack (TIA), and cerebral infarction without residual deficits; Z86.711 Personal history of pulmonary embolism; Z86.19 Personal history of other infectious and parasitic diseases; Z86.14 Personal history of Methicillin resistant Staphylococcus aureus infection; Z85.46 Personal history of malignant neoplasm of prostate; Z90.49 Acquired absence of other specified parts of digestive tract; Z91.018 Allergy to other foods; Z91.048 Other nonmedicinal substance allergy status; Z82.3 Family history of stroke; Z82.5 Family history of asthma and other chronic lower respiratory diseases; Z82.0 Family history of epilepsy and other diseases of the nervous system
CPT/HCPCS: 36415; 74177; 80048; 80053; 80320; 82271; 82550; 82553; 83605; 83735; 84100; 85025; 85027; 85610; 85730; 86850; 86900; 86901; 87040; 87086; 93005; 94640; 96361; 96374; 96375; 99285

== ENCOUNTER 2019-02-05 04:17 | Inpatient (IN) | payer OTHER ==
[2019-02-05] MEDS ORDERED: ONDANSETRON 4 MG/2 ML VIAL IVP STA (05:17)
[2019-02-05] MEDS ORDERED: MORPHINE SULFATE 4 MG/ML SYRINGE IVP STA (05:17)
--- NOTE | 2019-02-05 05:31 | XR ---
EXAMINATION TYPE: XR shoulder complete LT DATE OF EXAM: 02/05/2019 COMPARISON: NONE HISTORY: Pain TECHNIQUE: 3 views FINDINGS: There is transverse fracture of the humeral neck with impaction and comminution. There is n o dislocation. Scapula appears intact. IMPRESSION: Comminuted slightly impacted humeral neck fracture. Displacement is up to 1.5 cm.
--- NOTE | 2019-02-05 05:32 | XR ---
EXAMINATION TYPE: XR chest 1V DATE OF EXAM: 02/05/2019 COMPARISON: 12/28/2018 HISTORY: Shoulder pain TECHNIQUE: Single frontal view of the chest is obtained. FINDINGS: Heart and mediastinum are within normal limits. Lungs are clear. Costophrenic angles are c lear. There are no hilar masses. There is impacted left humeral neck fracture. There is small calcified granuloma in the left midlung. IMPRESSION: No acute lung disease. Heart and lungs unchanged compared to old exam.
[2019-02-05] MEDS ORDERED: HYDROmorphone 1 MG/ML 1 ML SYRINGE IVP STA ×2 (06:03→07:00)
[2019-02-05] MEDS ORDERED: NALOXONE 0.4 MG/ML 1 ML VIAL IV PRN (08:42)
--- NOTE | 2019-02-05 08:42 | ED ---
Fall HPI - General Chief Complaint: Fall Stated Complaint: Fall, shoulder injury Time Seen by Provider: 02/05/19 04:30 Source: patient, EMS Mode of arrival: EMS - History of Present Illness Initial Comments: The patient is a 63-year-old male who presents emergency Department with reported left shoulder pain. The patient awoke from sleep and attempted to get up and ambulate. He states he tripped over his pant leg and fell forward. He hit his left shoulder against the bed. He had excruciating pain and called EMS. There was obvious deformity. The patient denies any numbness or tingling in his hand. No paralysis. Denies any elbow or wrist pain. He is right-hand dominant. Denies any other injuries. No blunt head trauma or loss consciousness. Denies any chest pain or shortness breath. Denies any back or flank pain. Denies any pain in his lower extremities. There are no alleviating, precipitating or modifying factors - Related Data Home Medications Medication Instructions Recorded Confirmed Ferrous Sulfate [Iron (65 MG 325 mg PO DAILY 04/24/18 02/05/19 Elemental)] amLODIPine [Norvasc] 5 mg PO BID 08/25/18 02/05/19 metFORMIN HCL [Glucophage] 500 mg PO BID 10/19/18 02/05/19 Multivitamins, Thera [Multivitamin 1 tab PO DAILY 12/12/18 02/05/19 (formulary)] Thiamine Mononitrate (Vit B1) 100 mg PO DAILY@1200 12/29/18 02/05/19 [Vitamin B-1] Previous Rx's Medication Instructions Recorded cloNIDine HCL [Catapres] 0.1 mg PO BID #60 tab 03/26/18 Sucralfate [Carafate] 1 gm PO AC-TID 30 Days #90 tab 10/24/18 Magnesium Oxide [Mag-Ox] 400 mg PO DAILY #20 tablet 11/01/18 Pantoprazole Sodium [Protonix] 40 mg PO BID #60 tablet. 11/04/18 Budesonide-Formot 160-4.5 Mcg 2 puff INHALATION RT-BID #1 inh 12/15/18 [Symbicort 160-4.5 Mcg Inhaler] Folic Acid 1 mg PO AC-LUNCH #30 tab 12/15/18 Acetaminophen Tab [Tylenol] 500 mg PO Q6HR tab 02/08/19 HYDROcodone/APAP 7.5-325MG [Equinunk 1 each PO Q4H PRN #18 tab 02/08/19 7.5-325] INSULIN LISPRO (HumaLOG) [humaLOG] 0 unit SQ ACHS #1 vial 02/08/19 LORazepam [Ativan] 1 mg PO Q8H PRN 3 Days #9 tab 02/08/19 Allergies Allergy/AdvReac Type Severity Reaction Status Date / Time adhesive tape Allergy Rash/Hives Verified 02/05/19 07:54 latex Allergy Unknown Verified 02/05/19 07:54 egg AdvReac Nausea & Verified 02/05/19 07:54 Vomiting lisinopril AdvReac EYES Verified 02/05/19 07:54 BURN&ITCH/WEAKNESS tomato AdvReac Nausea & Verified 02/05/19 07:54 Vomiting & Diarrhea Review of Systems ROS Statement: Those systems with pertinent positive or pertinent negative responses have been documented in the HPI. ROS Other: All systems not noted in ROS Statement are negative. Past Medical History Past Medical History: Atrial Fibrillation, Cancer, Chest Pain / Angina, COPD, CVA/TIA, Diabetes Mellitus, GERD/Reflux, GI Bleed, Hyperlipidemia, Hypertension, Pneumonia, Prostate Disorder, Pulmonary Embolus (PE) Additional Past Medical History / Comment(s): tachycardia/palpitations likely d/t alcohol withdrawal. hx of Alcoholism, chronic alcoholic cirrhosis with portal hypertension and previous history of upper and lower GI bleeding, esophageal varices, previous history of childhood seizure which he outgrew not taking any antiepileptic medication-possibly had recent seizure-2018 thought d/t alcohol withdrawal, pulmonary embolism x 2 R lung, TIA, diverticulosis, chronic lower bilateral extremity ankle edema if he walks alot, previous history of septicemia, cervical disc disease with chronic back pain with r sided sciatica, degenerative arthritis involving the lower back, tinnitus, vitamin D deficiency, iron anemia, chronic thrombocytopenia, denies MRSA, C-DIFF -2018, scoliosis, scoliosis. pt had radiation 04/28 for prostate cancer History of Any Multi-Drug Resistant Organisms: MRSA Date of last positivie culture/infection: none MDRO Source:: none Past Surgical History: Appendectomy, Cholecystectomy Additional Past Surgical History / Comment(s): EGDs/esophageal varicies bandings, colonoscopies. Past Anesthesia/Blood Transfusion Reactions: No Reported Reaction Additional Past Anesthesia/Blood Transfusion Reaction / Comment(s): after appendix removed sob Past Psychological History: Anxiety, Depression Additional Psychological History / Comment(s): Pt lives in an apartment alone. Apartment complex has front door ramp and has an elevator. no pets. Sometimes his sister stays with him and cleans his home. He uses a cane to ambulate at times. He drives but currently has no car. He gets to [facility] by senior bus. He has a nebulizer and a glucometer.pt stated he was getting [facility] home care nurse but has'nt seen them in few days,not sure if they're still coming. Used to work in [employer]. Relates that he's not been a smoker. Denies recreational drug use. His left him many years ago he has adult children that he does not see very often. No experience. No travel history. No animal exposures Smoking Status: Never smoker Past Alcohol Use History: Abuse, Daily, Heavy Additional Past Alcohol Use History / Comment(s): pt reports drinking every 2-3 days in which he says he drinks a fifth of rum. Past Drug Use History: None Reported - Past Family History Mother Family Medical History: COPD, CVA/TIA, Dementia Additional Family Medical History / Comment(s): from a stroke Father Family Medical History: Pneumonia Additional Family Medical History / Comment(s): Father of pneumonia when he was close to 80 yrs old. General Exam Limitations: no limitations General appearance: alert, in no apparent distress Eye exam: Present: normal appearance, PERRL Pupils: Present: normal accommodation ENT exam: Present: normal exam, mucous membranes moist Neck exam: Present: normal inspection. Absent: tenderness, meningismus Respiratory exam: Present: normal lung sounds bilaterally. Absent: respiratory distress, wheezes, rales, rhonchi, stridor Cardiovascular Exam: Present: normal rhythm, tachycardia GI/Abdominal exam: Present: soft. Absent: distended, tenderness, guarding, rebound, rigid Extremities exam: Present: tenderness, normal capillary refill (tenderness left proximal humeral head. Patient has normal movement at hand, wrist, elbow but refuses ROM testing at shoulder. Intact median, radial, ulnar and AIN innervated motor group. 2+ radial and ulnar pulses. Intact 2+ and soft touch distal), other Back exam: Present: normal inspection, full ROM. Absent: tenderness Neurological exam: Present: alert, oriented X3 Psychiatric exam: Present: normal mood, flat affect Skin exam: Present: warm, dry, intact Course Vital Signs 02/05/19 02/05/19 02/05/19 04:20 05:10 06:05 Temperature 97.7 F 98.3 F 98.2 F Pulse Rate 120 H 125 H 126 H Respiratory 18 18 18 Rate Blood Pressure 153/101 144/87 124/83 O2 Sat by Pulse 97 93 L 93 L Oximetry 02/05/19 02/05/19 07:03 09:06 Temperature 98.6 F Pulse Rate 130 H 133 H Respiratory 18 16 Rate Blood Pressure 134/90 146/87 O2 Sat by Pulse 94 L 97 Oximetry Medical Decision Making - Medical Decision Making Upon arrival the patient is placed into room 10. He is notably tachycardic. I did perform an x-ray of the chest and shoulder. Chest x-ray demonstrates no acute findings. Left shoulder x-ray demonstrates comminuted slightly impacted humeral neck fracture with displacement up to 1.5 cm. Peripheral IV had been established the patient was given 4 mg of morphine for pain control as well as 4 mg of Zofran for nausea. The patient is reevaluated and states that his pain is still out of control. He is given 1 mg of dilaudid. Patient is notably tachycardic. I did perform a 12-lead EKG on the patient. He is evaluated upon multiple occasions and given 3 doses of Dilaudid in the ER without improvement in symptoms. Because of did call discuss case with Dr. Lott. He did accept admission for the patient because of intractable pain. I did draw laboratory studies. Patient's hemoglobin is 7.9 which is his baseline. Serum alcohol is 21. The patient is placed in a sling. I will consult Dr. Jones's group for medical management. The patient remained in stable condition and was transp orted to the floor - Lab Data Result diagrams: 02/10/19 05:43 02/10/19 05:43 Lab Results 02/05/19 02/05/19 02/05/19 Range/Units 09:05 09:05 09:05 WBC 5.1 (3.8-10.6) k/uL RBC 2.89 L (4.30-5.90) m/uL Hgb 7.9 L (13.0-17.5) gm/dL Hct 25.0 L (39.0-53.0) % MCV 86.5 (80.0-100.0) fL MCH 27.4 (25.0-35.0) pg MCHC 31.7 (31.0-37.0) g/dL RDW 20.7 H (11.5-15.5) % Plt Count 141 L (150-450) k/uL Neutrophils % 69 % Lymphocytes % 13 % Monocytes % 16 % Eosinophils % 1 % Basophils % 0 % Neutrophils # 3.5 (1.3-7.7) k/uL Lymphocytes # 0.6 L (1.0-4.8) k/uL Monocytes # 0.8 (0-1.0) k/uL Eosinophils # 0.0 (0-0.7) k/uL Basophils # 0.0 (0-0.2) k/uL Manual Slide Review Performed Hypochromasia Marked Poikilocytosis Slight Anisocytosis Moderate Sodium 141 (137-145) mmol/L Potassium 4.3 (3.5-5.1) mmol/L Chloride 107 (98-107) mmol/L Carbon Dioxide 23 (22-30) mmol/L Anion Gap 11 mmol/L BUN 7 L (9-20) mg/dL Creatinine 0.56 L (0.66-1.25) mg/dL Est GFR (CKD-EPI)AfAm >90 (>60 ml/min/1.73 sqM) Est GFR (CKD-EPI)NonAf >90 (>60 ml/min/1.73 sqM) Glucose 140 H (74-99) mg/dL POC Glucose (mg/dL) (75-99) mg/dL POC Glu Vessel Slag Worker ID Estimated Ave Glu mg/dL 114 Hemoglobin A1c 5.6 (4.0-6.0) % Calcium 8.4 (8.4-10.2) mg/dL Total Bilirubin 1.0 (0.2-1.3) mg/dL AST 90 H (17-59) U/L ALT 45 (21-72) U/L Alkaline Phosphatase 197 H (38-126) U/L Total Protein 7.4 (6.3-8.2) g/dL Albumin 3.5 (3.5-5.0) g/dL TSH 0.827 (0.465-4.680) mIU/L Serum Alcohol 21 mg/dL 02/05/19 02/05/19 02/05/19 Range/Units 11:50 16:54 20:18 WBC (3.8-10.6) k/uL RBC (4.30-5.90) m/uL Hgb (13.0-17.5) gm/dL Hct (39.0-53.0) % MCV (80.0-100.0) fL MCH (25.0-35.0) pg MCHC (31.0-37.0) g/dL RDW (11.5-15.5) % Plt Count (150-450) k/uL Neutrophils % % Lymphocytes % % Monocytes % % Eosinophils % % Basophils % % Neutrophils # (1.3-7.7) k/uL Lymphocytes # (1.0-4.8) k/uL Monocytes # (0-1.0) k/uL Eosinophils # (0-0.7) k/uL Basophils # (0-0.2) k/uL Manual Slide Review Hypochromasia Poikilocytosis Anisocytosis Sodium (137-145) mmol/L Potassium (3.5-5.1) mmol/L Chloride (98-107) mmol/L Carbon Dioxide (22-30) mmol/L Anion Gap mmol/L BUN (9-20) mg/dL Creatinine (0.66-1.25) mg/dL Est GFR (CKD-EPI)AfAm (>60 ml/min/1.73 sqM) Est GFR (CKD-EPI)NonAf (>60 ml/min/1.73 sqM) Glucose (74-99) mg/dL POC Glucose (mg/dL) 183 H 125 H 161 H (75-99) mg/dL POC Glu Vessel Slag Worker Nigel Berry Andrew Reckart, Kayla [address] Glu mg/dL Hemoglobin A1c (4.0-6.0) % Calcium (8.4-10.2) mg/dL Total Bilirubin (0.2-1.3) mg/dL AST (17-59) U/L ALT (21-72) U/L Alkaline Phosphatase (38-126) U/L Total Protein (6.3-8.2) g/dL Albumin (3.5-5.0) g/dL TSH (0.465-4.680) mIU/L Serum Alcohol mg/dL 02/06/19 02/06/19 02/06/19 Range/Units 06:33 12:29 17:29 WBC (3.8-10.6) k/uL RBC (4.30-5.90) m/uL Hgb (13.0-17.5) gm/dL Hct (39.0-53.0) % MCV (80.0-100.0) fL MCH (25.0-35.0) pg MCHC (31.0-37.0) g/dL RDW (11.5-15.5) % Plt Count (150-450) k/uL Neutrophils % % Lymphocytes % % Monocytes % % Eosinophils % % Basophils % % Neutrophils # (1.3-7.7) k/uL Lymphocytes # (1.0-4.8) k/uL Monocytes # (0-1.0) k/uL Eosinophils # (0-0.7) k/uL Basophils # (0-0.2) k/uL Manual Slide Review Hypochromasia Poikilocytosis Anisocytosis Sodium (137-145) mmol/L Potassium (3.5-5.1) mmol/L Chloride (98-107) mmol/L Carbon Dioxide (22-30) mmol/L Anion Gap mmol/L BUN (9-20) mg/dL Creatinine (0.66-1.25) mg/dL Est GFR (CKD-EPI)AfAm (>60 ml/min/1.73 sqM) Est GFR (CKD-EPI)NonAf (>60 ml/min/1.73 sqM) Glucose (74-99) mg/dL POC Glucose (mg/dL) 134 H 159 H 158 H (75-99) mg/dL POC Glu Vessel Slag Worker Talia Grant Katie Nichols, Katie [address] Glu mg/dL Hemoglobin A1c (4.0-6.0) % Calcium (8.4-10.2) mg/dL Total Bilirubin (0.2-1.3) mg/dL AST (17-59) U/L ALT (21-72) U/L Alkaline Phosphatase (38-126) U/L Total Protein (6.3-8.2) g/dL Albumin (3.5-5.0) g/dL TSH (0.465-4.680) mIU/L Serum Alcohol mg/dL 02/06/19 02/07/19 02/07/19 Range/Units 20:26 06:22 11:32 WBC (3.8-10.6) k/uL RBC (4.30-5.90) m/uL Hgb (13.0-17.5) gm/dL Hct (39.0-53.0) % MCV (80.0-100.0) fL MCH (25.0-35.0) pg MCHC (31.0-37.0) g/dL RDW (11.5-15.5) % Plt Count (150-450) k/uL Neutrophils % % Lymphocytes % % Monocytes % % Eosinophils % % Basophils % % Neutrophils # (1.3-7.7) k/uL Lymphocytes # (1.0-4.8) k/uL Monocytes # (0-1.0) k/uL Eosinophils # (0-0.7) k/uL Basophils # (0-0.2) k/uL Manual Slide Review Hypochromasia Poikilocytosis Anisocytosis Sodium (137-145) mmol/L Potassium (3.5-5.1) mmol/L Chloride (98-107) mmol/L Carbon Dioxide (22-30) mmol/L Anion Gap mmol/L BUN (9-20) mg/dL Creatinine (0.66-1.25) mg/dL Est GFR (CKD-EPI)AfAm (>60 ml/min/1.73 sqM) Est GFR (CKD-EPI)NonAf (>60 ml/min/1.73 sqM) Glucose (74-99) mg/dL POC Glucose (mg/dL) 160 H 136 H 184 H (75-99) mg/dL POC Glu Vessel Slag Worker ID Aliza Bagley Jenna Hegler, Stacie [address] Glu mg/dL Hemoglobin A1c (4.0-6.0) % Calcium (8.4-10.2) mg/dL Total Bilirubin (0.2-1.3) mg/dL AST (17-59) U/L ALT (21-72) U/L Alkaline Phosphatase (38-126) U/L Total Protein (6.3-8.2) g/dL Albumin (3.5-5.0) g/dL TSH (0.465-4.680) mIU/L Serum Alcohol mg/dL - EKG Data EKG Comments: EKG demonstrates a sinus tachycardia with a ventricular rate of 122.. A 156. QRS 92. QTC 464. No acute ST segment elevations or depressions concerning for ischemic changes Disposition Clinical Impression: Humeral fracture Disposition: ADMITTED IP TO THIS HOSP Condition: Stable Is patient prescribed a controlled substance at d/c from ED?: No Decision to Admit Reason: Admit from EC Decision Date: 02/05/19 Decision Time: 08:41
[2019-02-05] MEDS: HYDROmorphone 1 MG/ML 1 ML SYRINGE IVP PRN ×4 (09:01→21:35)
[2019-02-05 09:43] LABS: African American GFR (CKD) >90 (>60 ml/min/1.73 sqM); Albumin 3.5 g/dL (3.5-5.0); Alcohol 21 mg/dL; Anion Gap 11 mmol/L; Anisocytosis Moderate; Basophils % (A) 0 %; Blood Urea Nitrogen 7 mg/dL (9-20); Calcium 8.4 mg/dL (8.4-10.2); Carbon Dioxide 23 mmol/L (22-30); Chloride 107 mmol/L (98-107); Eosinophils % (A) 1 %; Glucose 140 mg/dL (74-99); HGB 7.9 gm/dL (13.0-17.5); Hypochromasia Marked; Lymphocytes # (A) 0.6 k/uL (1.0-4.8); Lymphocytes % (A) 13 %; MCH 27.4 pg (25.0-35.0); MCHC 31.7 g/dL (31.0-37.0); MCV 86.5 fL (80.0-100.0); Mean Platelet Volume 9.4; Monocytes # (A) 0.8 k/uL (0-1.0); Monocytes % (A) 16 %; Neutrophils # (A) 3.5 k/uL (1.3-7.7); Neutrophils % (A) 69 %; Platelet Count 141 k/uL (150-450); Poikilocytosis Slight; RBC 2.89 m/uL (4.30-5.90); RDW 20.7 % (11.5-15.5); Sodium 141 mmol/L (137-145); Total Protein 7.4 g/dL (6.3-8.2); WBC 5.1 k/uL (3.8-10.6)
[2019-02-05 09:53] LABS: ALT 45 U/L (21-72); AST 90 U/L (17-59); Alkaline Phosphatase 197 U/L (38-126); Potassium 4.3 mmol/L (3.5-5.1)
[2019-02-05] MEDS: amLODIPine 5 MG TAB PO SCH ×2 (10:03→21:35)
[2019-02-05] MEDS: AMOXIC-POT CLAV 875-125MG 1 EACH TAB PO SCH ×2 (10:03→21:35)
[2019-02-05] MEDS: cloNIDine HCL 0.1 MG TAB PO SCH ×2 (10:03→21:35)
[2019-02-05] MEDS: MAGNESIUM OXIDE 400 MG TAB PO SCH (10:03)
[2019-02-05] MEDS: FERROUS SULFATE 325 MG TAB PO SCH (10:03)
[2019-02-05] MEDS: MULTIVITAMINS, THERA 1 EACH TAB PO SCH (10:04)
[2019-02-05] MEDS: PANTOPRAZOLE 40 MG TABLET PO SCH ×2 (10:04→17:15)
[2019-02-05 10:13] VITALS: BMI 21.6
[2019-02-05] MEDS ORDERED: LORazepam 2 MG/ML INJ IV PRN ×2 (10:48)
--- NOTE | 2019-02-05 11:46 | P.HPOR ---
History of Present Illness H&P Date: 02/05/19 This patient is a 63-year-old male with multiple medical problems including alcohol abuse, cirrhosis of the liver, history of variceal bleeding, atrial fibrillation, COPD, CVA, diabetes type 2, hypertension, hyperlipidemia pulmonary embolism, C. difficile and MRSA that presented to [facility] early this morning for evaluation of a left shoulder injury following a fall. The patient states he fell yesterday at home, when he tripped getting out of his bed. He states he landed directly onto the left shoulder. He states he experienced immediate pain in the area, although he believes it was just bruised. Although, his pain continued to increase throughout the day he decided to come in for evaluation this morning. X-rays in the emergency department revealed a left proximal humerus fracture. The patient was admitted under the care of Dr. Lott, with a consult placed to internal medicine for medical management. At the time of examination, the patient localizes his pain to the left proximal arm. He states he did not injure any additional areas of the body when he fell. He states he is not experiencing pain in any additional areas of the body. Patient denies hitting his head. He states he was not drinking alcohol when he fell, and in that he has not drink alcohol for over a month. He states he is trying to quit drinking alcohol. He denies any additional orthopedic complaints at the time exam. Past Medical History Past Medical History: Atrial Fibrillation, Cancer, Chest Pain / Angina, COPD, CVA/TIA, Diabetes Mellitus, GERD/Reflux, GI Bleed, Hyperlipidemia, Hypertension, Pneumonia, Prostate Disorder, Pulmonary Embolus (PE) Additional Past Medical History / Comment(s): tachycardia/palpitations likely d/t alcohol withdrawal. hx of Alcoholism, chronic alcoholic cirrhosis with portal hypertension and previous history of upper and lower GI bleeding, esophageal varices, previous history of childhood seizure which he outgrew not taking any antiepileptic medication-possibly had recent seizure-2017 thought d/t alcohol withdrawal, pulmonary embolism x 2 R lung, TIA, diverticulosis, chronic lower bilateral extremity ankle edema if he walks alot, previous history of septicemia, cervical disc disease with chronic back pain with r sided sciatica, degenerative arthritis involving the lower back, tinnitus, vitamin D deficiency, iron anemia, chronic thrombocytopenia, denies MRSA, C-DIFF , scoliosis, scoliosis. pt had radiation thurs 12/13 for prostate cancer History of Any Multi-Drug Resistant Organisms: MRSA Date of last positivie culture/infection: none MDRO Source:: none Past Surgical History: Appendectomy, Cholecystectomy Additional Past Surgical History / Comment(s): EGDs/esophageal varicies bandings, colonoscopies. Past Anesthesia/Blood Transfusion Reactions: No Reported Reaction Additional Past Anesthesia/Blood Transfusion Reaction / Comment(s): after appendix removed sob Past Psychological History: Anxiety, Depression Additional Psychological History / Comment(s): Pt lives in an apartment alone. Apartment complex has front door ramp and has an elevator. no pets. Sometimes his sister stays with him and cleans his home. He uses a cane to ambulate at times. He drives but currently has no car. He gets to [facility] by [employer]. He has a nebulizer and a glucometer.pt stated he was getting [facility] home care nurse but has'nt seen them in few days,not sure if they're still coming. Used to work in [employer]. Relates that he's not been a smoker. Denies recreational drug use. His left him many years ago he has adult children that he does not see very often. No experience. No travel history. No animal exposures Smoking Status: Never smoker Past Alcohol Use History: Abuse, Daily, Heavy Additional Past Alcohol Use History / Comment(s): pt reports drinking every 2-3 days in which he says he drinks a fifth of rum. Past Drug Use History: None Reported - Past Family History Mother Family Medical History: COPD, CVA/TIA, Dementia Additional Family Medical History / Comment(s): from a stroke Father Family Medical History: Pneumonia Additional Family Medical History / Comment(s): Father of pneumonia when he was close to 80 yrs old. Medications and Allergies Home Medications Medication Instructions Recorded Confirmed Type cloNIDine HCL [Catapres] 0.1 mg PO BID #60 tab 03/26/18 02/05/19 Rx Ferrous Sulfate [Iron (65 MG 325 mg PO DAILY 04/24/18 02/05/19 History Elemental)] amLODIPine [Norvasc] 5 mg PO BID 08/25/18 02/05/19 History metFORMIN HCL [Glucophage] 500 mg PO BID 10/19/18 02/05/19 History Sucralfate [Carafate] 1 gm PO AC-TID 30 Days #90 tab 10/24/18 02/05/19 Rx Magnesium Oxide [Mag-Ox] 400 mg PO DAILY #20 tablet 11/01/18 02/05/19 Rx Pantoprazole Sodium [Protonix] 40 mg PO BID #60 tablet. 11/04/18 02/05/19 Rx Multivitamins, Thera [Multivitamin 1 tab PO DAILY 12/12/18 02/05/19 History (formulary)] Budesonide-Formot 160-4.5 Mcg 2 puff INHALATION RT-BID #1 inh 12/15/18 02/05/19 Rx [Symbicort 160-4.5 Mcg Inhaler] Folic Acid 1 mg PO AC-LUNCH #30 tab 12/15/18 02/05/19 Rx HYDROcodone/APAP 5-325MG [[place] 1 tab PO Q6HR PRN #10 tab 12/28/18 02/05/19 Rx 5-325] Thiamine Mononitrate (Vit B1) 100 mg PO DAILY@1200 12/29/18 02/05/19 History [Vitamin B-1] Amoxic-Pot Clav 875-125Mg 1 tab PO Q12HR #4 tablet 02/01/19 02/05/19 Rx [Augmentin 875-125] Allergies Allergy/AdvReac Type Severity Reaction Status Date / Time adhesive tape Allergy Rash/Hives Verified 02/05/19 07:54 latex Allergy Unknown Verified 02/05/19 07:54 egg AdvReac Nausea & Verified 02/05/19 07:54 Vomiting lisinopril AdvReac EYES Verified 02/05/19 07:54 BURN&ITCH/WEAKNESS tomato AdvReac Nausea & Verified 02/05/19 07:54 Vomiting & Diarrhea Physical Examination On examination, the patient is lying in bed in no apparent distress. He is alert and oriented 3. His head appears normocephalic and atraumatic. His breathing appears nonlabored. Exam of the cervical spine reveals no pain upon palpation or range of motion. There is no obvious injury of the right upper extremity with no obvious deformity. Inspection of the left upper extremity, there is a sling in place. There are no open wounds or lacerations. There is pain on palpation of the proximal arm. There is no pain on palpation of the scapula, clavicle, elbow, forearm, wrist, or hand. There is no pain with range of motion of the wrist or fingers. Range of motion of the shoulder is not tested at this time. Motor and sensory function are intact of the left upper extremity. Radial pulse palpable, with brisk capillary refill of all fingers and thumb. There is no obvious injury or deformity of the bilateral lower extremities. Results Left shoulder x-ray 02/03/19: Displaced proximal humerus fracture. No additional fractures identified. - Labs Labs: Abnormal Lab Results - Last 24 Hours (Table) 02/05/19 02/05/19 Range/Units 09:05 09:05 RBC 2.89 L (4.30-5.90) m/uL Hgb 7.9 L (13.0-17.5) gm/dL Hct 25.0 L (39.0-53.0) % RDW 20.7 H (11.5-15.5) % Plt Count 141 L (150-450) k/uL Lymphocytes # 0.6 L (1.0-4.8) k/uL BUN 7 L (9-20) mg/dL Creatinine 0.56 L (0.66-1.25) mg/dL Glucose 140 H (74-99) mg/dL AST 90 H (17-59) U/L Alkaline Phosphatase 197 H (38-126) U/L H & H 02/05/19 Range/Units 09:05 Hgb 7.9 L (13.0-17.5) gm/dL Hct 25.0 L (39.0-53.0) % Result Diagrams: 02/05/19 09:05 02/05/19 09:05 Assessment and Plan Assessment: Proximal humerus fracture, left. Plan: - Discussed the clinical and x-ray findings with the patient. Nonoperative treatment is recommended at this time. I recommended immobilization of left shoulder with a sling. He is to keep the sling on at all times with no motion of the shoulder. Recommended ice and elevation of left shoulder pain and swelling control. - Based on his multiple medical problems, the patient will be transferred to the internal medicine service, which seems appropriate as the patient's fracture will be treated non-operatively. This was discussed with Dr. Alvarez, who accepted this transfer. - Continue pain management. - We will continue to follow the patient will he remains inpatient. Following discharge, he may follow-up in the office as an outpatient for updated x-rays of the left humerus and continued treatment. Patient discussed with Dr. Lott.
[2019-02-05 11:53] LABS: Glucose,Whole Blood 183 mg/dL (75-99)
[2019-02-05] MEDS ORDERED: THIAMINE MONONITRATE (VIT B1) 100 MG TABLET PO SCH (12:00)
[2019-02-05] MEDS: THIAMINE 100 MG TAB PO SCH (12:32)
[2019-02-05] MEDS: SUCRALFATE 1 GM TAB PO SCH ×2 (12:32→17:15)
[2019-02-05] MEDS: FOLIC ACID 1 MG TAB PO SCH (12:32)
[2019-02-05] MEDS: INSULIN ASPART (NovoLOG) 100 UNIT/ML VIAL SQ SCH ×3 (12:41→21:35)
[2019-02-05 17:03] LABS: Glucose,Whole Blood 125 mg/dL (75-99)
[2019-02-05] MEDS: LORazepam 2 MG/ML INJ IV PRN (17:23)
[2019-02-05] MEDS: SYMBICORT 160-4.5 MCG INHALER INHALATION SCH (19:52)
[2019-02-05 20:19] LABS: Glucose,Whole Blood 161 mg/dL (75-99)
--- NOTE | 2019-02-06 00:01 | P.CONS ---
History of Present Illness - Reason for Consult Consult date: 02/05/19 Medical management - Chief Complaint Status post fall and right humerus fracture - History of Present Illness Patient is a 61-year-old male with a known history of alcohol abuse, recent admission with alcohol withdrawal symptoms and GI bleed due to esophageal varices, alcohol at liver cirrhosis and alcoholic hepatitis, paroxysmal atrial fibrillation history currently not on any anticoagulation, COPD, CVA, diabetes type 2, hypertension, hyperlipidemia and history of pulmonary embolism, C. diff and MRSA and other multiple medical problems who was recently discharged from the hospital on 02/01/2019 was brought to the hospital due to fall and left shoulder injury. Patient states he fell yesterday at home, when he tripped getting out of his bed. He states he landed directly onto the left shoulder. He states he experienced immediate pain in the area, although he believes it was just bruis ed. Although, his pain continued to increase throughout the day he decided to come in for evaluation this morning. Any head injury. Last alcohol use was on Wednesday. Patient was shaky with tremors of bilateral upper extremities currently. X-rays in the emergency department revealed a left proximal humerus fracture. Patient was seen by orthopedic surgery and placed on sling . No surgical inte rvention recommended at this time. Review of Systems Constitutional: Patient denies any fever or chills . No generalized weakness or weight loss. Abdomen: Patient denied nausea vomiting and diarrhea and abdominal pain. Cardiovascular: Patient denies any chest pain or short of breath no palpitations. Respiratory: patient denied any cough is from production. No shortness of breath Neurologic: Patient denied any numbness or tingling headache. Tremors and shaking Musculoskeletal: Patient denies any complaints of joint swelling or deformity. Left shoulder pain. Skin: Negative Psychiatric: Negative. Endocrine: No heat or cold intolerance. No recent weight gain. Genitourinary: No dysuria or hematuria. All other 14 point ROS negative except the above Past Medical History Past Medical History: Atrial Fibrillation, Cancer, Chest Pain / Angina, COPD, CVA/TIA, Diabetes Mellitus, GERD/Reflux, GI Bleed, Hyperlipidemia, Hypertension, Pneumonia, Prostate Disorder, Pulmonary Embolus (PE) Additional Past Medical History / Comment(s): tachycardia/palpitations likely d/t alcohol withdrawal. hx of Alcoholism, chronic alcoholic cirrhosis with portal hypertension and previous history of upper and lower GI bleeding, esophageal varices, previous history of childhood seizure which he outgrew not taking any antiepileptic medication-possibly had recent seizure-2018 thought d/t alcohol withdrawal, pulmonary embolism x 2 R lung, TIA, diverticulosis, chronic lower bilateral extremity ankle edema if he walks alot, previous history of septicemia, cervical disc disease with chronic back pain with r sided sciatica, degenerative arthritis involving the lower back, tinnitus, vitamin D deficiency, iron anemia, chronic thrombocytopenia, denies MRSA, C-DIFF -2018, scoliosis, s coliosis. pt had radiation 04/28 for prostate cancer History of Any Multi-Drug Resistant Organisms: MRSA Year Discovered:: none MDRO Source:: none Past Surgical History: Appendectomy, Cholecystectomy Additional Past Surgical History / Comment(s): EGDs/esophageal varicies bandings, colonoscopies. Past Anesthesia/Blood Transfusion Reactions: No Reported Reaction Additional Past Anesthesia/Blood Transfusion Reaction / Comm: after appendix removed sob Past Psychological History: Anxiety, Depression Additional Psychological History / Comment(s): Pt lives in an apartment alone. Apartment complex has front door ramp and has an elevator. no pets. Sometimes his sister stays with him and cleans his home. He uses a cane to ambulate at times. He drives but currently has no car. He gets to [facility] by [employer] bus. He has a nebulizer and a glucometer.pt stated he was getting [facility] home care nurse but has'nt seen them in few days,not sure if they're still coming. Used to work in [employer]. Relates that he's not been a smoker. Denies recreational drug use. His left him many years ago he has adult children that he does not see very often. No experience. No travel history. No animal exposures Smoking Status: Never smoker Past Alcohol Use History: Abuse, Daily, Heavy Additional Past Alcohol Use History / Comment(s): pt reports drinking every 2-3 days in which he says he drinks a fifth of rum. Past Drug Use History: None Reported - Past Family History Mother Family Medical History: COPD, CVA/TIA, Dementia Additional Family Medical History / Comment(s): from a stroke Father Family Medical History: Pneumonia Additional Family Medical History / Comment(s): Father of pneumonia when he was close to 80 yrs old. Medications and Allergies Home Medications Medication Instructions Recorded Confirmed Type cloNIDine HCL [Catapres] 0.1 mg PO BID #60 tab 03/26/18 02/05/19 Rx Ferrous Sulfate [Iron (65 MG 325 mg PO DAILY 04/24/18 02/05/19 History Elemental)] amLODIPine [Norvasc] 5 mg PO BID 08/25/18 02/05/19 History metFORMIN HCL [Glucophage] 500 mg PO BID 10/19/18 02/05/19 History Sucralfate [Carafate] 1 gm PO AC-TID 30 Days #90 tab 10/24/18 02/05/19 Rx Magnesium Oxide [Mag-Ox] 400 mg PO DAILY #20 tablet 11/01/18 02/05/19 Rx Pantoprazole Sodium [Protonix] 40 mg PO BID #60 tablet. 11/04/18 02/05/19 Rx Multivitamins, Thera [Multivitamin 1 tab PO DAILY 12/12/18 02/05/19 History (formulary)] Budesonide-Formot 160-4.5 Mcg 2 puff INHALATION RT-BID #1 inh 12/15/18 02/05/19 Rx [Symbicort 160-4.5 Mcg Inhaler] Folic Acid 1 mg PO AC-LUNCH #30 tab 12/15/18 02/05/19 Rx HYDROcodone/APAP 5-325MG [[place] 1 tab PO Q6HR PRN #10 tab 12/28/18 02/05/19 Rx 5-325] Thiamine Mononitrate (Vit B1) 100 mg PO DAILY@1200 12/29/18 02/05/19 History [Vitamin B-1] Amoxic-Pot Clav 875-125Mg 1 tab PO Q12HR #4 tablet 02/01/19 02/05/19 Rx [Augmentin 875-125] Allergies Allergy/AdvReac Type Severity Reaction Status Date / Time adhesive tape Allergy Rash/Hives Verified 02/05/19 07:54 latex Allergy Unknown Verified 02/05/19 07:54 egg AdvReac Nausea & Verified 02/05/19 07:54 Vomiting lisinopril AdvReac EYES Verified 02/05/19 07:54 BURN&ITCH/WEAKNESS tomato AdvReac Nausea & Verified 02/05/19 07:54 Vomiting & Diarrhea Physical Exam Vitals: Vital Signs Temp Pulse Pulse Resp BP BP Pulse Ox 02/05/19 11:49 98.6 F 126 H 18 157/90 96 02/05/19 09:06 133 H 16 146/87 97 02/05/19 07:03 98.6 F 130 H 18 134/90 94 L 02/05/19 06:05 98.2 F 126 H 18 124/83 93 L 02/05/19 05:10 98.3 F 125 H 18 144/87 93 L 02/05/19 04:20 97.7 F 120 H 18 153/101 97 Intake and Output 02/04/19 02/05/19 02/05/19 22:59 06:59 14:59 Other: Weight 72.575 kg PHYSICAL EXAMINATION: Patient is lying in the bed comfortably, no acute distress, awake alert and oriented.. HEENT: Normocephalic. Neck is supple. Pupils reactive. Nostrils clear. Oral cavity is moist. Ears reveal no drainage. Neck reveals no JVD, carotid bruits, or thyromegaly. CHEST EXAMINATION: Trachea is central. Symmetrical expansion. Bibasilar diminished air entry. Lung guadalupe clear to auscultation and percussion. CARDIAC: Normal S1, S2 with no gallops. No murmurs ABDOMEN: Soft. Bowel sounds normal. No organomegaly. No abdominal bruits. Extremities: reveal no edema. No clubbing or cyanosis Neurologically awake, alert, oriented x3 patient does have shakiness and tremors. No focal deficits noted Skin: No rash or skin lesions. Psychiatric: Coperative. Nonsuicidal anxious. Musculoskeletal: No joint swelling or deformity. Left shoulder sling. Decreased range of motion. Results Results: Status post mechanical fall and left humerus fracture. Acute alcohol withdrawal symptoms Recent admission with variceal bleed . Discharged on 02/01/2019 Anemia secondary to chronic GI bleed Alcohol hepatitis. Chronic alcoholic liver cirrhosis with portal hypertension and esophageal varices. History of pulmonary embolism. 2 not and anticollagen due to GI bleed. Questionable history of atrial fibrillation.. Currently in sinus rhythm. Diverticulosis Cervical disc disease Chronic back pain Right-sided sciatica History of prostate cancer status post radiation MrStacia MRSA DVT prophylaxis with heparin subcu Anxiety/depression GERD Hypertension Hyperlipidemia History of CVA/TIA Plan: Patient will be continued on IV hydration. Pain management. Patient was seen by orthopedic surgery and recommends no surgical intervention at this time. Continue with alcohol withdrawal protocol. Monitor H&H. Continue with PPI and Carafate. Further recommendations based on the clinical course. We will continue to follow with you. Thank you for your consult. CBC & Chem 7: 02/05/19 09:05 02/05/19 09:05 Labs: Abnormal Lab Results - Last 24 Hours (Table) 02/05/19 02/05/19 02/05/19 Range/Units 09: 09:05 11:50 RBC 2.89 L (4.30-5.90) m/uL Hgb 7.9 L (13.0-17.5) gm/dL Hct 25.0 L (39.0-53.0) % RDW 20.7 H (11.5-15.5) % Plt Count 141 L (150-450) k/uL Lymphocytes # 0.6 L (1.0-4.8) k/uL BUN 7 L (9-20) mg/dL Creatinine 0.56 L (0.66-1.25) mg/dL Glucose 140 H (74-99) mg/dL POC Glucose (mg/dL) 183 H (75-99) mg/dL AST 90 H (17-59) U/L Alkaline Phosphatase 197 H (38-126) U/L Assessment and Plan Time with Patient: Greater than 30
[2019-02-06] MEDS: HYDROmorphone 1 MG/ML 1 ML SYRINGE IVP PRN ×4 (00:55→19:44)
[2019-02-06 06:34] LABS: Glucose,Whole Blood 134 mg/dL (75-99)
[2019-02-06] MEDS: PANTOPRAZOLE 40 MG TABLET PO SCH ×2 (06:56→17:50)
[2019-02-06] MEDS: SUCRALFATE 1 GM TAB PO SCH ×3 (06:56→17:51)
[2019-02-06] MEDS: INSULIN ASPART (NovoLOG) 100 UNIT/ML VIAL SQ SCH ×4 (06:58→20:28)
[2019-02-06] MEDS: SYMBICORT 160-4.5 MCG INHALER INHALATION SCH ×2 (08:15→19:35)
[2019-02-06] MEDS: MULTIVITAMINS, THERA 1 EACH TAB PO SCH (08:23)
[2019-02-06] MEDS: AMOXIC-POT CLAV 875-125MG 1 EACH TAB PO SCH ×2 (08:23→19:43)
[2019-02-06] MEDS: MAGNESIUM OXIDE 400 MG TAB PO SCH (08:23)
[2019-02-06] MEDS: FERROUS SULFATE 325 MG TAB PO SCH (08:23)
[2019-02-06] MEDS: cloNIDine HCL 0.1 MG TAB PO SCH ×2 (08:23→19:43)
[2019-02-06] MEDS: amLODIPine 5 MG TAB PO SCH ×2 (08:23→19:43)
[2019-02-06 12:31] LABS: Glucose,Whole Blood 159 mg/dL (75-99)
--- NOTE | 2019-02-06 12:45 | P.PN ---
Subjective Progress Note Date: 02/06/19 This patient is a 63-year-old male with multiple medical problems including alcohol abuse, cirrhosis of the liver, history of variceal bleeding, atrial fibrillation, COPD, CVA, diabetes type 2, hypertension, hyperlipidemia pulmonary embolism, C. difficile and MRSA that presented to [facility] early this morning for evaluation of a left shoulder injury following a fall. The patient states he fell yesterday at home, when he tripped getting out of his bed. He states he landed directly onto the left shoulder. He states he experienced immediate pain in the area, although he believes it was just bruised. Although, his pain continued to increase throughout the day he decided to come in for nidia luation this morning. X-rays in the emergency department revealed a left proximal humerus fracture. The patient was admitted under the care of Dr. Lott, with a consult placed to internal medicine for medical management. At the time of examination, the patient localizes his pain to the left proximal arm. He states he did not injure any additional areas of the body when he fell. He states he is not experiencing pain in any additional areas of the body. Patient denies hitting his head. He states he was not drinking alcohol when he fell, and in that he has not drink alcohol for over a month. He states he is trying to quit drinking alcohol. He denies any additional orthopedic complaints at the time exam. 02/06/19: Patient is examined bedside this morning. He states he is still ex periencing pain in the left proximal arm. He states he has also been nauseated. He has been keeping a sling in place at all times. He states he has not been moving the left shoulder. He denies any additional orthopedic complaints today. Vital signs stable. Objective - Vital Signs Vital signs: Vital Signs Temp 98.6 F 02/06/19 11:59 Pulse 120 H 02/06/19 11:59 Resp 18 02/06/19 11:59 BP 135/76 02/06/19 11:59 Pulse Ox 98 02/06/19 11:59 Intake & Output 02/05/19 02/06/19 02/06/19 18:59 06:59 18:59 Intake Total 120 10 240 Output Total 425 1300 Balance -305 -1290 240 Intake: IV 10 0.9 10 Oral 120 240 Output: Urine 425 1300 Other: Voiding Method Urinal Urinal # Voids 3 - Exam On examination, the patient is lying in bed in no apparent distress. He is alert and oriented 3. On inspection of the left upper extremity, there is a sling in place. There are no open wounds or lacerations. There is mild ecchym osis of the proximal arm. There is pain on palpation of the proximal arm. There is no pain on palpation of the scapula, clavicle, elbow, forearm, wrist, or hand. There is no pain with range of motion of the wrist or fingers. Range of motion of the shoulder is not tested at this time. Motor and sensory function are intact of the left upper extremity. Radial pulse palpable, with brisk capillary refill of all fingers and thumb. - Labs CBC & Chem 7: 02/05/19 09:05 02/05/19 09:05 Labs: Abnormal Lab Results - Last 24 Hours (Table) 02/05/19 02/05/19 02/06/19 Range/Units 16:54 20:18 06:33 POC Glucose (mg/dL) 125 H 161 H 134 H (75-99) mg/dL 02/06/19 Range/Units 12:29 POC Glucose (mg/dL) 159 H (75-99) mg/dL Assessment and Plan Assessment: Proximal humerus fracture, left. Plan: - Recommended we continue with nonoperative treatment is recommended at this time. I recommended immobilization of left shoulder with a sling. He is to keep the sling on at all times with no motion of the shoulder. Recommended ice and elevation of left shoulder pain and swelling control. - Continue pain management. [place] 5/325 mg added. Decrease use of IV dilaudid as tolerated. - Case management consulted for possible rehab placement. PT/OT also consulted. - Following discharge, he may follow-up in the office as an outpatient for up dated x-rays of the left humerus and continued treatment. Patient discussed with Dr. Lott.
[2019-02-06] MEDS: HYDROcodone/APAP 5-325MG 1 EACH TAB PO PRN ×2 (13:05→22:49)
[2019-02-06] MEDS: FOLIC ACID 1 MG TAB PO SCH (13:05)
[2019-02-06] MEDS: THIAMINE 100 MG TAB PO SCH (13:05)
[2019-02-06 13:56] LABS: Hemoglobin A1C 5.6 % (4.0-6.0)
[2019-02-06 17:32] LABS: Glucose,Whole Blood 158 mg/dL (75-99)
[2019-02-06 20:27] LABS: Glucose,Whole Blood 160 mg/dL (75-99)
[2019-02-07] MEDS: HYDROmorphone 1 MG/ML 1 ML SYRINGE IVP PRN (03:36)
[2019-02-07 06:23] LABS: Glucose,Whole Blood 136 mg/dL (75-99)
[2019-02-07] MEDS: INSULIN ASPART (NovoLOG) 100 UNIT/ML VIAL SQ SCH ×4 (06:35→20:59)
[2019-02-07] MEDS: SUCRALFATE 1 GM TAB PO SCH ×3 (06:35→17:25)
[2019-02-07] MEDS: PANTOPRAZOLE 40 MG TABLET PO SCH ×2 (06:35→17:25)
--- NOTE | 2019-02-07 08:25 | P.PN ---
Subjective Progress Note Date: 02/06/19 Pt complaining of arm pain but overall feeling well today. denies tremor, diaphoresis, chills. Objective - Vital Signs Vital signs: Vital Signs Temp 99.1 F 02/07/19 03:32 Pulse 101 H 02/07/19 03:54 Resp 18 02/07/19 03:54 BP 115/71 02/07/19 03:32 Pulse Ox 97 02/07/19 03:32 Intake & Output 02/06/19 02/07/19 02/07/19 18:59 06:59 18:59 Intake Total 582 10 Output Total 1525 1600 Balance -943 -1590 Weight 74.7 kg Intake: IV 10 Invasive Line 1 10 Oral 582 Output: Urine 1525 1600 Other: Voiding Method Urinal # Voids 2 - Exam CARDIAC: Normal S1, S2 with no gallops. No murmurs ABDOMEN: Soft. Bowel sounds normal. No organomegaly. No abdominal bruits. Extremities: reveal no edema. No clubbing or cyanosis Neurologically awake, alert, oriented x3 patient does have shakiness and tremors. No focal deficits noted - Labs CBC & Chem 7: 02/05/19 09:05 02/05/19 09:05 Labs: Abnormal Lab Results - Last 24 Hours (Table) 02/06/19 02/06/19 02/06/19 Range/Units 12:29 17:29 20:26 POC Glucose (mg/dL) 159 H 158 H 160 H (75-99) mg/dL 02/07/19 Range/Units 06:22 POC Glucose (mg/dL) 136 H (75-99) mg/dL Assessment and Plan (1) Humeral fracture Current Visit: Yes Status: Acute Code(s): S42.309A - UNSP FRACTURE OF SHAFT OF HUMERUS, UNSP ARM, INIT SNOMED Code(s): 91250147 (2) Alcohol dependence Current Visit: No Status: Acute Code(s): F10.20 - ALCOHOL DEPENDENCE, UNCOMPLICATED SNOMED Code(s): 72959090 (3) Alcohol dependence with withdrawal Current Visit: No Status: Acute Code(s): F10.239 - ALCOHOL DEPENDENCE WITH WITHDRAWAL, UNSPECIFIED SNOMED Code(s): 44881427 (4) Alcoholic hepatitis without ascites Current Visit: No Status: Acute Code(s): K70.10 - ALCOHOLIC HEPATITIS WITHOUT ASCITES SNOMED Code(s): 213438223 (5) Esophageal varices Current Visit: No Status: Acute Code(s): I85.00 - ESOPHAGEAL VARICES WITHOUT BLEEDING SNOMED Code(s): 13326268 Plan: 1. L humeral fracture. Management per Ortho. Pain control 2. Alcohol dependence. CIWA protocol. Clonidine prn 3. Esophageal varices. Continue PPI and carafate
[2019-02-07] MEDS: amLODIPine 5 MG TAB PO SCH ×2 (08:27→19:37)
[2019-02-07] MEDS: MULTIVITAMINS, THERA 1 EACH TAB PO SCH ×2 (08:27→08:28)
[2019-02-07] MEDS: HYDROcodone/APAP 5-325MG 1 EACH TAB PO PRN ×3 (08:27→22:34)
[2019-02-07] MEDS: AMOXIC-POT CLAV 875-125MG 1 EACH TAB PO SCH ×2 (08:27→19:37)
[2019-02-07] MEDS: FERROUS SULFATE 325 MG TAB PO SCH (08:27)
[2019-02-07] MEDS: MAGNESIUM OXIDE 400 MG TAB PO SCH (08:27)
[2019-02-07] MEDS: FOLIC ACID 1 MG TAB PO SCH (08:27)
[2019-02-07] MEDS: cloNIDine HCL 0.1 MG TAB PO SCH ×2 (08:27→19:37)
[2019-02-07] MEDS: THIAMINE 100 MG TAB PO SCH (08:27)
[2019-02-07] MEDS: LORazepam 2 MG/ML INJ IV PRN (08:43)
[2019-02-07] MEDS: SYMBICORT 160-4.5 MCG INHALER INHALATION SCH ×2 (08:49→19:29)
--- NOTE | 2019-02-07 08:51 | P.PN ---
Subjective Progress Note Date: 02/07/19 This patient is a 63-year-old male with multiple medical problems including alcohol abuse, cirrhosis of the liver, history of variceal bleeding, atrial fibrillation, COPD, CVA, diabetes type 2, hypertension, hyperlipidemia pulmonary embolism, C. difficile and MRSA that presented to [facility] early this morning for evaluation of a left shoulder injury following a fall. The patient states he fell yesterday at home, when he tripped getting out of his bed. He states he landed directly onto the left shoulder. He states he experienced immediate pain in the area, although he believes it was just bruised. Although, his pain continued to increase throughout the day he decided to come in for nidia luation this morning. X-rays in the emergency department revealed a left proximal humerus fracture. The patient was admitted under the care of Dr. Lott, with a consult placed to internal medicine for medical management. At the time of examination, the patient localizes his pain to the left proximal arm. He states he did not injure any additional areas of the body when he fell. He states he is not experiencing pain in any additional areas of the body. Patient denies hitting his head. He states he was not drinking alcohol when he fell, and in that he has not drink alcohol for over a month. He states he is trying to quit drinking alcohol. He denies any additional orthopedic complaints at the time exam. 02/07/19: Patient is examined bedside this morning. Patient states he is exp eriencing pain at the fracture site, at the proximal left arm. He has been requiring IV Dilaudid and oral [place]. He states these medications are not keeping his pain control. He has been wearing the sling at all times. He denies any orthopedic complaints today. Objective - Vital Signs Vital signs: Vital Signs Temp 98.6 F 02/07/19 08:36 Pulse 117 H 02/07/19 08:36 Resp 20 02/07/19 08:36 BP 122/73 02/07/19 08:36 Pulse Ox 98 02/07/19 08:36 Intake & Output 02/06/19 02/07/19 02/07/19 18:59 06:59 18:59 Intake Total 582 10 Output Total 1525 1600 Balance -943 -1590 Weight 74.7 kg Intake: IV 10 Invasive Line 1 10 Oral 582 Output: Urine 1525 1600 Other: Voiding Method Urinal Urinal # Voids 2 - Exam On examination, the patient is lying in bed in no apparent distress. He is alert and oriented 3. On inspection of the left upper extremity, there is a sling in place. There are no open wounds or lacerations. There is ecchymosis of the proximal arm. There is pain on palpation of the proximal arm. There is no pain on palpation of the scapula, clavicle, elbow, forearm, wrist, or hand. There is no pain with range of motion of the wrist or fingers. Range of motion of the shoulder is not tested at this time. Motor and sensory function are intact of the left upper extremity. Radial pulse palpable, with brisk capillary refill of all fingers and thumb. - Labs CBC & Chem 7: 02/05/19 09:05 02/05/19 09:05 Labs: Abnormal Lab Results - Last 24 Hours (Table) 02/06/19 02/06/19 02/06/19 Range/Units 12:29 17:29 20:26 POC Glucose (mg/dL) 159 H 158 H 160 H (75-99) mg/dL 02/07/19 Range/Units 06:22 POC Glucose (mg/dL) 136 H (75-99) mg/dL Assessment and Plan Assessment: Proximal humerus fracture, left. Plan: - Recommended we continue with nonoperative treatment at this time. I recommended immobilization of left shoulder with a sling. He is to keep the sling on at all times with no motion of the shoulder. Recommended ice and e levation of left shoulder pain and swelling control. - Continue pain management per internal medicine. -Patient is ok for discharge from an orthopedic standpoint. He may follow-up in the office as an outpatient 1 week following discharge for repeat x-rays of the left humerus. Patient discussed with Dr. Lott.
[2019-02-07 11:33] LABS: Glucose,Whole Blood 184 mg/dL (75-99)
[2019-02-07 16:51] LABS: Glucose,Whole Blood 139 mg/dL (75-99)
--- NOTE | 2019-02-07 17:28 | P.PN ---
Subjective Progress Note Date: 02/07/19 63-year-old gentleman admitted with humeral fracture, alcohol dependence with DTs and multiple other medical issues. Evaluated by orthopedic surgery with conservative management recommended at this time. Splint maintained, wearing left sling. [place] increased yesterday as per orthopedic surgery in addition to Dilaudid IV push. Patient states no improvement in pain control. Maintained on CIWA scale, with a score of 8 this am. Reported sweating and jittery during the night. Consuming 100% breakfast. Blood sugars controlled. Denies chest pain, palpitations or shortness of breath. T-max 100.8, currently afebrile. VSS. Obtain O2 sats in the high 90s on room air. Objective - Vital Signs Vital signs: Vital Signs Temp 98.2 F 02/07/19 16:07 Pulse 98 02/07/19 16:07 Resp 16 02/07/19 16:07 BP 105/66 02/07/19 16:07 Pulse Ox 96 02/07/19 16:07 Intake & Output 02/06/19 02/07/19 02/07/19 18:59 06:59 18:59 Intake Total 858 70 4977 Output Total 1525 1600 675 Balance -943 -1590 405 Weight 74.7 kg Intake: IV 10 Invasive Line 1 10 Oral 582 1080 Output: Urine 1525 1600 675 Other: Voiding Method Urinal Urinal # Voids 2 3 # Bowel Movements 2 - Exam LUNGS; mild expiratory wheezing CARDIAC: Normal S1, S2 with no gallops. No murmurs ABDOMEN: Soft. Bowel sounds normal. No organomegaly. No abdominal bruits. Extremities: reveal no edema. No clubbing or cyanosis Neurologically awake, alert, oriented x3 patient does have shakiness and tremors. No focal deficits noted - Labs CBC & Chem 7: 02/05/19 09:05 02/05/19 09:05 Labs: Abnormal Lab Results - Last 24 Hours (Table) 02/06/19 02/06/19 02/07/19 Range/Units 17:29 20:26 06:22 POC Glucose (mg/dL) 158 H 160 H 136 H (75-99) mg/dL 02/07/19 02/07/19 Range/Units 11:32 16:47 POC Glucose (mg/dL) 184 H 139 H (75-99) mg/dL Assessment and Plan Assessment: (1) Humeral fracture, left Current Visit: Yes Status: Acute Code(s): S42.309A - UNSP FRACTURE OF SHAFT OF HUMERUS, UNSP ARM, INIT SNOMED Code(s): 01723530 (2) Alcohol dependence Current Visit: No Status: Acute Code(s): F10.20 - ALCOHOL DEPENDENCE, UNCOMPLICATED SNOMED Code(s): 43518835 (3) Alcohol dependence with withdrawal Current Visit: No Status: Acute Code(s): F10.239 - ALCOHOL DEPENDENCE WITH WITHDRAWAL, UNSPECIFIED SNOMED Code(s): 87526005 (4) Alcoholic hepatitis without ascites Current Visit: No Status: Acute Code(s): K70.10 - ALCOHOLIC HEPATITIS WITHOUT ASCITES SNOMED Code(s): 986015468 (5) Esophageal varices Current Visit: No Status: Acute Code(s): I85.00 - ESOPHAGEAL VARICES WITHOUT BLEEDING SNOMED Code(s): 97483079 Plan: Continue on current medication regime , PPI, Carafate monitoring and symptomatic treatment. Conservative treatment as per orthopedic surgery. Maintain CIWA protocol, clonidine. Crease [place] 7.5 mg for better pain control. Nebulized bronchodilators added to med regime. Increase ambulation. PT/OT. Close monitoring of hemoglobin with repeat CBC tomorrow. Discharge planning in progress for tomorrow. The impression and plan of care has been dictated as directed. : I performed a history and examination of this patient, discussed the same with the dictator. I agree with the dictator's note ,documented as a scribe. Any additional findings or plans will be noted.
[2019-02-07 20:43] LABS: Glucose,Whole Blood 124 mg/dL (75-99)
[2019-02-08] MEDS: LORazepam 2 MG/ML INJ IV PRN (04:22)
[2019-02-08 06:12] LABS: Glucose,Whole Blood 112 mg/dL (75-99)
[2019-02-08] MEDS: INSULIN ASPART (NovoLOG) 100 UNIT/ML VIAL SQ SCH ×4 (06:14→21:15)
[2019-02-08] MEDS: PANTOPRAZOLE 40 MG TABLET PO SCH ×2 (06:18→17:33)
[2019-02-08] MEDS: SUCRALFATE 1 GM TAB PO SCH ×3 (06:18→17:33)
[2019-02-08 06:55] LABS: Anisocytosis Moderate; Basophils % (A) 0 %; Eosinophils # (A) 0.1 k/uL (0-0.7); Eosinophils % (A) 1 %; HCT 22.2 % (39.0-53.0); Hypochromasia Marked; Lymphocytes # (A) 1.1 k/uL (1.0-4.8); Lymphocytes % (A) 19 %; MCH 27.3 pg (25.0-35.0); MCHC 31.3 g/dL (31.0-37.0); MCV 87.1 fL (80.0-100.0); Mean Platelet Volume 8.9; Monocytes # (A) 0.4 k/uL (0-1.0); Monocytes % (A) 7 %; Neutrophils # (A) 4.3 k/uL (1.3-7.7); Neutrophils % (A) 70 %; Platelet Count 163 k/uL (150-450); Poikilocytosis Slight; RBC 2.55 m/uL (4.30-5.90); RDW 20.6 % (11.5-15.5); WBC 6.2 k/uL (3.8-10.6)
[2019-02-08] MEDS: SYMBICORT 160-4.5 MCG INHALER INHALATION SCH ×2 (08:08→20:56)
[2019-02-08] MEDS: MULTIVITAMINS, THERA 1 EACH TAB PO SCH (08:47)
[2019-02-08] MEDS: FERROUS SULFATE 325 MG TAB PO SCH (08:47)
[2019-02-08] MEDS: HYDROcodone/APAP 5-325MG 1 EACH TAB PO PRN (08:47)
[2019-02-08] MEDS: AMOXIC-POT CLAV 875-125MG 1 EACH TAB PO SCH ×2 (08:47→21:14)
[2019-02-08] MEDS: amLODIPine 5 MG TAB PO SCH ×2 (08:47→21:14)
[2019-02-08] MEDS: THIAMINE 100 MG TAB PO SCH (08:47)
[2019-02-08] MEDS: MAGNESIUM OXIDE 400 MG TAB PO SCH (08:47)
[2019-02-08] MEDS: FOLIC ACID 1 MG TAB PO SCH (08:47)
[2019-02-08] MEDS: cloNIDine HCL 0.1 MG TAB PO SCH ×2 (08:47→21:15)
--- NOTE | 2019-02-08 11:15 | P.DS ---
Providers Date of admission: 02/07/19 13:48 Expected date of discharge: 02/08/19 Attending physician: Alexys Marcus MD Consults: 02/05/19 08:43 Consult Physician Urgent Consulting Provider: Vani Jones Consult Reason/Comments: medical management Do you want consulting provider notified?: Yes 02/05/19 15:42 Consult Physician Routine Consulting Provider: Clifford Lott Consult Reason/Comments: left humerous fracture Do you want consulting provider notified?: Yes Primary care physician: Yoon Phillips [facility] Course: Final Diagnoses: (1) Humeral fracture, left Current Visit: Yes Status: Acute Code(s): S42.309A - UNSP FRACTURE OF SHAFT OF HUMERUS, UNSP ARM, INIT SNOMED Code(s): 69716630 (2) Alcohol dependence Current Visit: No Status: Acute Code(s): F10.20 - ALCOHOL DEPENDENCE, UNCOMPLICATED SNOMED Code(s): 96031606 (3) Alcohol dependence with withdrawal Current Visit: No Status: Acute Code(s): F10.239 - ALCOHOL DEPENDENCE WITH WITHDRAWAL, UNSPECIFIED SNOMED Code(s): 52495637 (4) Alcoholic hepatitis without ascites Current Visit: No Status: Acute Code(s): K70.10 - ALCOHOLIC HEPATITIS WITHO UT ASCITES SNOMED Code(s): 285332665 (5) Esophageal varices Current Visit: No Status: Acute Code(s): I85.00 - ESOPHAGEAL VARICES WITHOUT BLEEDING SNOMED Code(s): 50567624 Hospital course:63-year-old gentleman admitted with humeral fracture, alcohol dependence with DTs and multiple other medical issues. Evaluated by orthopedic surgery with conservative management recommended at this time. Splint maintained, wearing left sling. [place] increased yesterday as per orthopedic surgery in addition to Dilaudid IV push. Patient states no improvement in pain control. Maintained on CIWA scale, with a score of 8 this am. Reported sweating and jittery during the night. Consuming 100% breakfast. Blood sugars controlled. Denies chest pain, palpitations or shortness of breath. T-max 100.8, currently afebrile. VSS. Obtain O2 sats in the high 90s on room air. Complaints of left arm pain, place and scheduled Tylenol and [place]. Denies chest pain, palpitations or shortness of breath. Significant clinical improvement. Cleared by orthopedic surgery for discharge. Patient is being discharged to [facility] subacute rehab today in a stable condition with guarded prognosis. - Exam LUNGS; mild expiratory wheezing CARDIAC: Normal S1, S2 with no gallops. No murmurs ABDOMEN: Soft. Bowel sounds normal. No organomegaly. No abdominal bruits. Extremities: reveal no edema. No clubbing or cyanosis Neurologically awake, alert, oriented x3 patient does have shakiness and tremors. No focal deficits noted The impression and plan of care has been dictated as directed. .: I performed a history and examination of this patient, discussed the same with the dictator. I agree with the dictator's note ,documented as a scribe. Any additional findings or plans will be noted. Patient Condition at Discharge: Stable Plan - Discharge Summary Discharge Rx Participant: No New Discharge Prescriptions: New INSULIN LISPRO (HumaLOG) [humaLOG] 0 unit SQ ACHS #1 vial HYDROcodone/APAP 7.5-325MG [[place] 7.5-325] 1 each PO Q4H PRN #18 tab PRN Reason: Pain Acetaminophen Tab [Tylenol] 500 mg PO Q6HR tab Continue cloNIDine HCL [Catapres] 0.1 mg PO BID #60 tab Ferrous Sulfate [Iron (65 MG Elemental)] 325 mg PO DAILY amLODIPine [Norvasc] 5 mg PO BID metFORMIN HCL [Glucophage] 500 mg PO BID Sucralfate [Carafate] 1 gm PO AC-TID 30 Days #90 tab Magnesium Oxide [Mag-Ox] 400 mg PO DAILY #20 tablet Pantoprazole Sodium [Protonix] 40 mg PO BID #60 tablet. Multivitamins Thera [Multivitamin (formulary)] 1 tab PO DAILY Folic Acid 1 mg PO AC-LUNCH #30 tab Budesonide-Formot 160-4.5 Mcg [Symbicort 160-4.5 Mcg Inhaler] 2 puff INHALATION RT-BID #1 inh HYDROcodone/APAP 5-325MG [[place] 5-325] 1 tab PO Q6HR PRN #10 tab PRN Reason: Pain Thiamine Mononitrate (Vit B1) [Vitamin B-1] 100 mg PO DAILY@1200 Amoxic-Pot Clav 875-125Mg [Augmentin 875-125] 1 tab PO Q12HR #4 tablet Discharge Medication List cloNIDine HCL [Catapres] 0.1 mg PO BID #60 tab 03/26/18 [Rx] Ferrous Sulfate [Iron (65 MG Elemental)] 325 mg PO DAILY 04/24/18 [History] amLODIPine [Norvasc] 5 mg PO BID 08/25/18 [History] metFORMIN HCL [Glucophage] 500 mg PO BID 10/19/18 [History] Sucralfate [Carafate] 1 gm PO AC-TID 30 Days #90 tab 10/24/18 [Rx] Magnesium Oxide [Mag-Ox] 400 mg PO DAILY #20 tablet 11/01/18 [Rx] Pantoprazole Sodium [Protonix] 40 mg PO BID #60 tablet. 11/04/18 [Rx] Multivitamins, Thera [Multivitamin (formulary)] 1 tab PO DAILY 12/12/18 [History] Budesonide-Formot 160-4.5 Mcg [Symbicort 160-4.5 Mcg Inhaler] 2 puff INHALATION RT-BID #1 inh 12/15/18 [Rx] Folic Acid 1 mg PO AC-LUNCH #30 tab 12/15/18 [Rx] HYDROcodone/APAP 5-325MG [[place] 5-325] 1 tab PO Q6HR PRN #10 tab 12/28/18 [Rx] Thiamine Mononitrate (Vit B1) [Vitamin B-1] 100 mg PO DAILY@1200 12/29/18 [History] Amoxic-Pot Clav 875-125Mg [Augmentin 875-125] 1 tab PO Q12HR #4 tablet 02/01/19 [Rx] Acetaminophen Tab [Tylenol] 500 mg PO Q6HR tab 02/08/19 [Rx] HYDROcodone/APAP 7.5-325MG [[place] 7.5-325] 1 each PO Q4H PRN #18 tab 02/08/19 [Rx] INSULIN LISPRO (HumaLOG) [humaLOG] 0 unit SQ ACHS #1 vial 02/08/19 [Rx] Follow up Appointment(s)/Referral(s): Clifford Lott MD [Medical Doctor] - 1 Week Yoon Phillips DO [Primary Care Provider] - 1 Week (After DC from subacute rehab) Activity/Diet/Wound Care/Special Instructions: [facility] .Patients eyeglass nose piece is in side table drawer-please remember to return to patient at [place].
[2019-02-08 12:24] LABS: Glucose,Whole Blood 185 mg/dL (75-99)
[2019-02-08] MEDS: HYDROcodone/APAP 7.5-325MG 1 EACH TAB PO PRN ×3 (12:47→21:14)
[2019-02-08] MEDS: ACETAMINOPHEN TAB 500 MG TAB PO SCH ×3 (13:53→23:23)
[2019-02-08 16:37] LABS: Glucose,Whole Blood 106 mg/dL (75-99)
[2019-02-08 20:35] LABS: Glucose,Whole Blood 179 mg/dL (75-99)
[2019-02-09 06:17] LABS: Glucose,Whole Blood 120 mg/dL (75-99)
[2019-02-09] MEDS: INSULIN ASPART (NovoLOG) 100 UNIT/ML VIAL SQ SCH ×4 (06:30→20:25)
[2019-02-09] MEDS: PANTOPRAZOLE 40 MG TABLET PO SCH ×2 (06:45→17:39)
[2019-02-09] MEDS: SUCRALFATE 1 GM TAB PO SCH ×3 (06:45→17:39)
[2019-02-09] MEDS: ACETAMINOPHEN TAB 500 MG TAB PO SCH ×4 (06:45→23:21)
[2019-02-09] MEDS: SYMBICORT 160-4.5 MCG INHALER INHALATION SCH ×2 (07:42→19:20)
[2019-02-09] MEDS: HYDROcodone/APAP 7.5-325MG 1 EACH TAB PO PRN ×2 (09:20→16:16)
[2019-02-09] MEDS: AMOXIC-POT CLAV 875-125MG 1 EACH TAB PO SCH ×2 (09:20→20:25)
[2019-02-09] MEDS: MULTIVITAMINS, THERA 1 EACH TAB PO SCH (09:20)
[2019-02-09] MEDS: amLODIPine 5 MG TAB PO SCH ×2 (09:20→20:25)
[2019-02-09] MEDS: MAGNESIUM OXIDE 400 MG TAB PO SCH (09:20)
[2019-02-09] MEDS: FERROUS SULFATE 325 MG TAB PO SCH (09:20)
[2019-02-09] MEDS: cloNIDine HCL 0.1 MG TAB PO SCH ×2 (09:20→20:25)
[2019-02-09 11:21] LABS: Anisocytosis Moderate; Basophils % (A) 1 %; Eosinophils # (A) 0.1 k/uL (0-0.7); Eosinophils % (A) 2 %; HCT 23.6 % (39.0-53.0); HGB 7.2 gm/dL (13.0-17.5); Hypochromasia Marked; Lymphocytes # (A) 0.8 k/uL (1.0-4.8); Lymphocytes % (A) 12 %; MCH 26.8 pg (25.0-35.0); MCHC 30.6 g/dL (31.0-37.0); MCV 87.8 fL (80.0-100.0); Mean Platelet Volume 8.1; Monocytes # (A) 0.5 k/uL (0-1.0); Monocytes % (A) 7 %; Neutrophils % (A) 77 %; Platelet Count 200 k/uL (150-450); Poikilocytosis Slight; RBC 2.69 m/uL (4.30-5.90); RDW 21.4 % (11.5-15.5); WBC 6.5 k/uL (3.8-10.6)
[2019-02-09 11:54] LABS: Glucose,Whole Blood 116 mg/dL (75-99)
[2019-02-09] MEDS: FOLIC ACID 1 MG TAB PO SCH (12:45)
[2019-02-09] MEDS: THIAMINE 100 MG TAB PO SCH (12:45)
[2019-02-09 17:04] LABS: Glucose,Whole Blood 103 mg/dL (75-99)
--- NOTE | 2019-02-09 19:02 | P.PN ---
Subjective Progress Note Date: 02/09/19 63-year-old gentleman admitted with humeral fracture, alcohol dependence with DTs and multiple other medical issues. Evaluated by orthopedic surgery with conservative management recommended at this time. Splint maintained, wearing left sling. [place] increased yesterday as per orthopedic surgery in addition to Dilaudid IV push. Patient states no improvement in pain control. Maintained on CIWA scale, with a score of 8 this am. Reported sweating and jittery during the night. Consuming 100% breakfast. Blood sugars controlled. Denies chest pain, palpitations or shortness of breath. T-max 100.8, currently afebrile. VSS. Obtain O2 sats in the high 90s on room air. 02/09/2019 vital signs stable, hemoglobin 7.2. No DTs. Vital signs stable. Pain slowly improving. Good diet intake, consuming 100% with no nausea vomiting or diarrhea. Blood sugars controlled. Objective - Vital Signs Vital signs: Vital Signs Temp 98.4 F 02/09/19 08:00 Pulse 90 02/09/19 12:00 Resp 16 02/09/19 04:00 BP 107/62 02/09/19 08:00 Pulse Ox 92 L 02/09/19 08:00 Intake & Output 02/08/19 02/09/19 02/09/19 18:59 06:59 18:59 Intake Total 1342 844 Output Total 1000 350 750 Balance 342 -350 94 Weight 65 kg Intake: Oral 1342 844 Output: Urine 1000 350 750 Other: Voiding Method Urinal # Voids 1 2 - Exam LUNGS; nonlabored, clear CARDIAC: Normal S1, S2 with no gallops. No murmurs ABDOMEN: Soft. Bowel sounds normal. No organomegaly. No abdominal bruits. Extremities: reveal no edema. No clubbing or cyanosis Neurologically awake, alert, oriented x3, no tremors. No focal deficits noted - Labs CBC & Chem 7: 02/09/19 10:44 02/05/19 09:05 Labs: Abnormal Lab Results - Last 24 Hours (Table) 02/08/19 02/08/19 02/09/19 Range/Units 16:36 20:34 06:15 RBC (4.30-5.90) m/uL Hgb (13.0-17.5) gm/dL Hct (39.0-53.0) % MCHC (31.0-37.0) g/dL RDW (11.5-15.5) % Lymphocytes # (1.0-4.8) k/uL POC Glucose (mg/dL) 106 H 179 H 120 H (75-99) mg/dL 02/09/19 02/09/19 Range/Units 10:44 11:53 RBC 2.69 L (4.30-5.90) m/uL Hgb 7.2 L (13.0-17.5) gm/dL Hct 23.6 L (39.0-53.0) % MCHC 30.6 L (31.0-37.0) g/dL RDW 21.4 H (11.5-15.5) % Lymphocytes # 0.8 L (1.0-4.8) k/uL POC Glucose (mg/dL) 116 H (75-99) mg/dL Assessment and Plan Assessment: (1) Humeral fracture, left, conservative treatment as per orthopedics Current Visit: Yes Status: Acute Code(s): S42.309A - UNSP FRACTURE OF SHAFT OF HUMERUS, UNSP ARM, INIT SNOMED Code(s): 88675753 (2) Alcohol dependence Current Visit: No Status: Acute Code(s): F10.20 - ALCOHOL DEPENDENCE, UNCOM PLICATED SNOMED Code(s): 04932925 (3) Alcohol dependence with withdrawal Current Visit: No Status: Acute Code(s): F10.239 - ALCOHOL DEPENDENCE WITH WITHDRAWAL, UNSPECIFIED SNOMED Code(s): 75620828 (4) Alcoholic hepatitis without ascites Current Visit: No Status: Acute Code(s): K70.10 - ALCOHOLIC HEPATITIS WITHOUT ASCITES SNOMED Code(s): 949390691 (5) Esophageal varices Current Visit: No Status: Acute Code(s): I85.00 - ESOPHAGEAL VARICES WITHOUT BLEEDING SNOMED Code(s): 09190652 Plan: Continue on current medication regime , PPI, Carafate monitoring and symptomatic treatment. Continue on CIWA protocol, clonidine. Pain management. Increase ambulation. PT/OT. Close monitoring of hemoglobin with repeat CBC tomorrow. Discharge planning in progress for tomorrow pending authorization for subacute rehab. The impression and plan of care has been dictated as directed. : I performed a history and examination of this patient, discussed the same with the dictator. I agree with the dictator's note ,documented as a scribe. Any additional findings or plans will be noted.
[2019-02-09 20:25] LABS: Glucose,Whole Blood 131 mg/dL (75-99)
[2019-02-09 23:20] VITALS: RESP 16
[2019-02-10] MEDS: HYDROcodone/APAP 7.5-325MG 1 EACH TAB PO PRN ×2 (00:28→08:46)
[2019-02-10 06:10] LABS: Glucose,Whole Blood 108 mg/dL (75-99)
[2019-02-10 06:11] LABS: Anisocytosis Moderate; Basophils % (A) 0 %; Eosinophils # (A) 0.1 k/uL (0-0.7); Eosinophils % (A) 2 %; HCT 25.7 % (39.0-53.0); HGB 7.9 gm/dL (13.0-17.5); Hypochromasia Marked; Lymphocytes # (A) 1.2 k/uL (1.0-4.8); Lymphocytes % (A) 18 %; MCH 26.8 pg (25.0-35.0); MCHC 30.8 g/dL (31.0-37.0); MCV 86.9 fL (80.0-100.0); Mean Platelet Volume 6.6; Monocytes # (A) 0.4 k/uL (0-1.0); Monocytes % (A) 7 %; Neutrophils # (A) 4.5 k/uL (1.3-7.7); Neutrophils % (A) 72 %; Platelet Count 219 k/uL (150-450); Poikilocytosis Slight; RBC 2.95 m/uL (4.30-5.90); RDW 20.1 % (11.5-15.5); WBC 6.3 k/uL (3.8-10.6)
[2019-02-10] MEDS: INSULIN ASPART (NovoLOG) 100 UNIT/ML VIAL SQ SCH (06:14)
[2019-02-10] MEDS: ACETAMINOPHEN TAB 500 MG TAB PO SCH (06:20)
[2019-02-10] MEDS: SUCRALFATE 1 GM TAB PO SCH (06:20)
[2019-02-10] MEDS: PANTOPRAZOLE 40 MG TABLET PO SCH (06:20)
[2019-02-10 06:24] LABS: African American GFR (CKD) >90 (>60 ml/min/1.73 sqM); Anion Gap 10 mmol/L; Blood Urea Nitrogen 10 mg/dL (9-20); Calcium 8.2 mg/dL (8.4-10.2); Carbon Dioxide 22 mmol/L (22-30); Chloride 104 mmol/L (98-107); Glucose 98 mg/dL (74-99); Potassium 3.9 mmol/L (3.5-5.1); Sodium 136 mmol/L (137-145)
[2019-02-10 07:01] LABS: Polychromasia Present; Target Cells Present
[2019-02-10] MEDS: SYMBICORT 160-4.5 MCG INHALER INHALATION SCH (07:29)
[2019-02-10 08:10] VITALS: BP 127/80; PULSE 101; TEMP 97.9
[2019-02-10] MEDS: FERROUS SULFATE 325 MG TAB PO SCH (08:45)
[2019-02-10] MEDS: MAGNESIUM OXIDE 400 MG TAB PO SCH (08:45)
[2019-02-10] MEDS: MULTIVITAMINS, THERA 1 EACH TAB PO SCH (08:45)
[2019-02-10] MEDS: amLODIPine 5 MG TAB PO SCH (08:45)
[2019-02-10] MEDS: AMOXIC-POT CLAV 875-125MG 1 EACH TAB PO SCH (08:45)
[2019-02-10] MEDS: cloNIDine HCL 0.1 MG TAB PO SCH (08:45)
[2019-02-10] MEDS ORDERED: MORPHINE SULFATE 2 MG/ML SYRINGE IVP STA (10:15)
== END 2019-02-10 10:46 | DRG 563 ==
LOC: EC 04:17 → 3SCARD 08:45 → OBSVTOIN 02-07 13:48
PROVIDERS: ADMIT Family Medicine; ATTEND Family Medicine
PROC: 2W39X1Z Immobilization of Left Upper Extremity using Splint (ICD-10-PCS; principal; 2019-02-05)
DX: S42.212A Unspecified displaced fracture of surgical neck of left humerus, initial encounter for closed fracture (principal); F10.231 Alcohol dependence with withdrawal delirium; K76.6 Portal hypertension; I85.00 Esophageal varices without bleeding; D69.6 Thrombocytopenia, unspecified; I48.0 Paroxysmal atrial fibrillation; M41.9 Scoliosis, unspecified; K70.30 Alcoholic cirrhosis of liver without ascites; K70.10 Alcoholic hepatitis without ascites; D50.0 Iron deficiency anemia secondary to blood loss (chronic); Y90.1 Blood alcohol level of 20-39 mg/100 ml; E11.9 Type 2 diabetes mellitus without complications; J44.9 Chronic obstructive pulmonary disease, unspecified; K21.9 Gastro-esophageal reflux disease without esophagitis; I10 Essential (primary) hypertension; K57.90 Diverticulosis of intestine, part unspecified, without perforation or abscess without bleeding; M50.90 Cervical disc disorder, unspecified, unspecified cervical region; M54.41 Lumbago with sciatica, right side; E55.9 Vitamin D deficiency, unspecified; E78.5 Hyperlipidemia, unspecified; N42.9 Disorder of prostate, unspecified; H93.19 Tinnitus, unspecified ear; Z79.51 Long term (current) use of inhaled steroids; Z79.84 Long term (current) use of oral hypoglycemic drugs; Z79.899 Other long term (current) drug therapy; Z86.711 Personal history of pulmonary embolism; Z87.19 Personal history of other diseases of the digestive system; Z87.01 Personal history of pneumonia (recurrent); Z86.14 Personal history of Methicillin resistant Staphylococcus aureus infection; Z86.19 Personal history of other infectious and parasitic diseases; Z85.46 Personal history of malignant neoplasm of prostate; Z90.49 Acquired absence of other specified parts of digestive tract; Z86.59 Personal history of other mental and behavioral disorders; Z98.890 Other specified postprocedural states; Z86.73 Personal history of transient ischemic attack (TIA), and cerebral infarction without residual deficits; Z92.3 Personal history of irradiation; W01.190A Fall on same level from slipping, tripping and stumbling with subsequent striking against furniture, initial encounter; Z91.012 Allergy to eggs; Z91.040 Latex allergy status; Z88.8 Allergy status to other drugs, medicaments and biological substances; Z91.018 Allergy to other foods; Z91.048 Other nonmedicinal substance allergy status; Y92.003 Bedroom of unspecified non-institutional (private) residence as the place of occurrence of the external cause; Z82.5 Family history of asthma and other chronic lower respiratory diseases; Z82.3 Family history of stroke; Z81.8 Family history of other mental and behavioral disorders
CPT/HCPCS: 71045; 80048; 80053; 80320; 83036; 84443; 85025; 93005; 94640; 96374; 96375; 96376; 99285

== ENCOUNTER 2019-03-11 09:07 | Inpatient (IN) | payer OTHER ==
[2019-03-11] MEDS ORDERED: ONDANSETRON 4 MG/2 ML VIAL IVP STA (09:39)
[2019-03-11] MEDS ORDERED: PANTOPRAZOLE 40 MG/10 ML VIAL IVP STA (09:39)
[2019-03-11] MEDS ORDERED: SODIUM CHLORIDE 0.9% 1,000 ML IV STA ×2 (09:39)
[2019-03-11] MEDS ORDERED: HYDROmorphone 0.5 MG/0.5 ML SYRINGE IVP STA (09:39)
[2019-03-11 10:17] LABS: ALT 53 U/L (21-72); AST 91 U/L (17-59); African American GFR (CKD) >90 (>60 ml/min/1.73 sqM); Albumin 3.6 g/dL (3.5-5.0); Alkaline Phosphatase 235 U/L (38-126); Anion Gap 15 mmol/L; Blood Urea Nitrogen 8 mg/dL (9-20); Calcium 8.5 mg/dL (8.4-10.2); Carbon Dioxide 22 mmol/L (22-30); Chloride 104 mmol/L (98-107); Glucose 123 mg/dL (74-99); Non-African American GFR(CKD) >90 (>60 ml/min/1.73 sqM); Potassium 4.2 mmol/L (3.5-5.1); Sodium 141 mmol/L (137-145); Total Bilirubin 0.8 mg/dL (0.2-1.3); Total Protein 7.8 g/dL (6.3-8.2)
[2019-03-11 10:26] LABS: Anisocytosis Slight; Basophils % (A) 0 %; Eosinophils % (A) 0 %; HCT 33.2 % (39.0-53.0); HGB 10.6 gm/dL (13.0-17.5); Hypochromasia Moderate; Lymphocytes # (A) 0.4 k/uL (1.0-4.8); Lymphocytes % (A) 6 %; MCH 27.8 pg (25.0-35.0); MCHC 31.9 g/dL (31.0-37.0); MCV 87.2 fL (80.0-100.0); Mean Platelet Volume 6.1; Monocytes # (A) 0.5 k/uL (0-1.0); Monocytes % (A) 7 %; Neutrophils # (A) 6.1 k/uL (1.3-7.7); Neutrophils % (A) 86 %; Platelet Count 168 k/uL (150-450); WBC 7.1 k/uL (3.8-10.6)
--- NOTE | 2019-03-11 10:34 | ED ---
Fall HPI - General Source: patient, EMS, RN notes reviewed, old records reviewed Mode of arrival: EMS <SoleStacey - Last Filed: 03/11/19 12:10> <Fifi Felton - Last Filed: 03/14/19 16:03> - General Chief Complaint: Fall Stated Complaint: fall Time Seen by Provider: 03/11/19 09:25 - History of Present Illness Initial Comments: Patient is a 61-year-old male well-known to emergency department for shoulder pain after fall and vomiting blood. He presents after falling in the shower possible loss of conscious last night, Patient reports that his nephew is there to help pick him up.. Patient reports that he has bilateral shoulder pain since the fall. He reports he has a known history of a fracture within his left humerus. Patient ports that he was discharged from [facility] a few days ago. He reports that he has not had an alcoholic drink in 3 months. Patient states that he has been feeling nauseous, and reports he has a history of tachycardia. His heart rate has been elevated 140s. Patient states he has been having some bloody emesis for the past day. He has a history of esophageal varices with banding procedure. (Stacey Whipple) - Related Data Home Medications Medication Instructions Recorded Confirmed Ferrous Sulfate [Iron (65 MG 325 mg PO DAILY 04/24/18 03/11/19 Elemental)] amLODIPine [Norvasc] 5 mg PO BID 08/25/18 03/11/19 metFORMIN HCL [Glucophage] 500 mg PO BID 10/19/18 03/11/19 Multivitamins, Thera [Multivitamin 1 tab PO DAILY 12/12/18 03/11/19 (formulary)] Thiamine Mononitrate (Vit B1) 100 mg PO DAILY@1200 12/29/18 03/11/19 [Vitamin B-1] Previous Rx's Medication Instructions Recorded cloNIDine HCL [Catapres] 0.1 mg PO BID #60 tab 03/26/18 Sucralfate [Carafate] 1 gm PO AC-TID 30 Days #90 tab 10/24/18 Magnesium Oxide [Mag-Ox] 400 mg PO DAILY #20 tablet 11/01/18 Pantoprazole Sodium [Protonix] 40 mg PO BID #60 tablet. 11/04/18 Budesonide-Formot 160-4.5 Mcg 2 puff INHALATION RT-BID #1 inh 12/15/18 [Symbicort 160-4.5 Mcg Inhaler] Folic Acid 1 mg PO AC-LUNCH #30 tab 12/15/18 Acetaminophen Tab [Tylenol] 500 mg PO Q6HR tab 02/08/19 HYDROcodone/APAP 7.5-325MG [Hamilton 1 each PO Q4H PRN #18 tab 02/08/19 7.5-325] LORazepam [Ativan] 1 mg PO Q8H PRN 3 Days #9 tab 02/08/19 Allergies Allergy/AdvReac Type Severity Reaction Status Date / Time adhesive tape Allergy Rash/Hives Verified 03/11/19 09:47 latex Allergy Unknown Verified 03/11/19 09:47 egg AdvReac Nausea & Verified 03/11/19 09:47 Vomiting lisinopril AdvReac EYES Verified 03/11/19 09:47 BURN&ITCH/WEAKNESS tomato AdvReac Nausea & Verified 03/11/19 09:47 Vomiting & Diarrhea Review of Systems ROS Other: All systems not noted in ROS Statement are negative. <Stacey Whipple - Last Filed: 03/11/19 12:10> ROS Other: All systems not noted in ROS Statement are negative. <Fifi Felton - Last Filed: 03/14/19 16:03> ROS Statement: Those systems with pertinent positive or pertinent negative responses have been documented in the HPI. Past Medical History Past Medical History: Atrial Fibrillation, Cancer, Chest Pain / Angina, COPD, CVA/TIA, Diabetes Mellitus, GERD/Reflux, GI Bleed, Hyperlipidemia, Hypertension, Pneumonia, Prostate Disorder, Pulmonary Embolus (PE) Additional Past Medical History / Comment(s): tachycardia/palpitations likely d/t alcohol withdrawal. hx of Alcoholism, chronic alcoholic cirrhosis with portal hypertension and previous history of upper and lower GI bleeding, esophageal varices, previous history of childhood seizure which he outgrew not taking any antiepileptic medication-possibly had recent seizure-2018 thought d/t alcohol withdrawal, pulmonary embolism x 2 R lung, TIA, diverticulosis, chronic lower bilateral extremity ankle edema if he walks alot, previous history of septicemia, cervical disc disease with chronic back pain with r sided sciatica, degenerative arthritis involving the lower back, tinnitus, vitamin D deficiency, iron anemia, chronic thrombocytopenia, denies MRSA, C-DIFF , scoliosis, scoliosis. pt had radiation th04/28 for prostate cancer History of Any Multi-Drug Resistant Organisms: MRSA Date of last positivie culture/infection: none MDRO Source:: none Past Surgical History: Appendectomy, Cholecystectomy Additional Past Surgical History / Comment(s): EGDs/esophageal varicies bandings, colonoscopies. Past Anesthesia/Blood Transfusion Reactions: No Reported Reaction Additional Past Anesthesia/Blood Transfusion Reaction / Comment(s): after appendix removed sob Past Psychological History: Anxiety, Depression Additional Psychological History / Comment(s): Pt lives in an apartment alone. Apartment complex has front door ramp and has an elevator. no pets. Sometimes his sister stays with him and cleans his home. He uses a cane to ambulate at times. He drives but currently has no car. He gets to [facility] by [employer] bus. He has a nebulizer and a glucometer.pt stated he was getting [facility] home care nurse but has'nt seen them in few days,not sure if they're still coming. Used to work in [employer]. Relates that he's not been a smoker. Denies recreational drug use. His left him many years ago he has adult children that he does not see very often. No experience. No travel history. No animal exposures Smoking Status: Never smoker Past Alcohol Use History: Abuse, Daily, Heavy Additional Past Alcohol Use History / Comment(s): pt reports drinking every 2-3 days in which he says he drinks a fifth of rum. Past Drug Use History: None Reported - Past Family History Mother Family Medical History: COPD, CVA/TIA, Dementia Additional Family Medical History / Comment(s): from a stroke Father Family Medical History: Pneumonia Additional Family Medical History / Comment(s): Father of pneumonia when he was close to 80 yrs old. <Stacey Whipple - Last Filed: 03/11/19 12:10> General Exam General appearance: alert, in no apparent distress Head exam: Present: atraumatic, normocephalic, normal inspection Eye exam: Present: normal appearance, PERRL, EOMI. Absent: scleral icterus, conjunctival injection, periorbital swelling ENT exam: Present: normal exam, other (Dried blood around oropharynx.) Neck exam: Present: normal inspection. Absent: tenderness, meningismus, lymphad enopathy Respiratory exam: Present: normal lung sounds bilaterally. Absent: respiratory distress, wheezes, rales, rhonchi, stridor Cardiovascular Exam: Present: regular rate, normal rhythm, normal heart sounds. Absent: systolic murmur, diastolic murmur, rubs, gallop, clicks GI/Abdominal exam: Present: soft, tenderness (Epigastric tenderness.), normal bowel sounds. Absent: distended, guarding, rebound, rigid Extremities exam: Present: normal inspection, full ROM, normal capillary refill, other (Patient has a sling holding this left shoulder replaced. Known history of left humeral fracture. He is neurovascular intact distally with full range of motion of fingers. Patient has tenderness over the right deltoid and shoulder. Pain with full extension.). Absent: tenderness, pedal edema, joint swelling, calf tenderness Back exam: Present: normal inspection Neurological exam: Present: alert, oriented X3, CN II-XII intact Psychiatric exam: Present: normal affect, normal mood Skin exam: Present: warm, dry, intact, normal color. Absent: rash <Stacey Whipple - Last Filed: 03/11/19 12:10> - General Exam Comments Initial Comments: 63-year-old male. Patient is alert and oriented 3. Arrives wearing c-collar. 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 History of esophageal varices (Stacey Whipple) Medical Decision Making - Lab Data Result diagrams: 03/11/19 09:50 03/11/19 09:50 - Radiology Data Radiology results: report reviewed <Stacey Whipple - Last Filed: 03/11/19 12:10> - Lab Data Result diagrams: 03/14/19 07:22 03/14/19 07:22 <Fifi Felton - Last Filed: 03/14/19 16:03> - Medical Decision Making 63-year-old male presents today for evaluation for concern of fall yesterday possible lost conscious. Limbs bilateral shoulder pain. He reports since the fall is also had episodes of bloody vomit. Patient reports a history of alcoholism, esophageal varices. He reports he was discharged from [facility] days ago and returned home. He reports that when he fell yesterday his son with her pick him up. He has had 2 episodes of bloody emesis and emergency department. He is had an elevated heart rate of 130s. He denies any recent alcohol use. I'll call level is obtained. silhouette is stable at 10.7. This is improved from his last hemoglobin. Patient complains of epigastric pain, similar to when he had his last esophageal variceal bleeding. Patient shoulder x-ray was negative for any acute fracture on the right shoulder. He has evidence of subacute fracture on the left. He is in a sling at this time. CT of the brain and C-spine were negative for any acute intracranial abnormality or fractures. There was noted of right upper lobe airspace disease which could reflect an early pneumonia. However Patient denies any significant coughing.. His chest x-ray was negative for any acute changes. Discussed monitoring, and holding antibiotics at this time. With a history of bloody emesis, I discussed case with Dr. Felton. Recommended Patient to place him on a CIWA scale which may correct his tachycardia as well. Patient understands and the Patient will be admitted for further evaluation for her bloody emesis and fall. Patient was given Zofran, low dose of pain medication, Protonix. (Stacey hWipple) I was available for consultation in the emergency department. The history and physical exam were done by the midlevel provider. I was consulted for this patients care. I reviewed the case with the midlevel provider and based on their presentation of the patient, I agree with the assessment, medical decision making and plan of care as documented. I evaluated the patient myself and discus sed the case with the admitting physician. he will be placed in the ICU Chart was dictated using [employer] dictation software. Attempts were made to correct any dictation errors however some typographical errors may persist. (Fifi Felton) - Lab Data Lab Results 03/11/19 03/11/19 03/11/19 Range/Units 09:50 09:50 09:50 WBC 7.1 (3.8-10.6) k/uL RBC 3.80 L (4.30-5.90) m/uL Hgb 10.6 L (13.0-17.5) gm/dL Hct 33.2 L (39.0-53.0) % MCV 87.2 (80.0-100.0) fL MCH 27.8 (25.0-35.0) pg MCHC 31.9 (31.0-37.0) g/dL RDW 18.0 H (11.5-15.5) % Plt Count 168 (150-450) k/uL Neutrophils % 86 % Lymphocytes % 6 % Monocytes % 7 % Eosinophils % 0 % Basophils % 0 % Neutrophils # 6.1 (1.3-7.7) k/uL Lymphocytes # 0.4 L (1.0-4.8) k/uL Monocytes # 0.5 (0-1.0) k/uL Eosinophils # 0.0 (0-0.7) k/uL Basophils # 0.0 (0-0.2) k/uL Hypochromasia Moderate Anisocytosis Slight APTT 22.5 (22.0-30.0) sec Sodium 141 (137-145) mmol/L Potassium 4.2 (3.5-5.1) mmol/L Chloride 104 (98-107) mmol/L Carbon Dioxide 22 (22-30) mmol/L Anion Gap 15 mmol/L BUN 8 L (9-20) mg/dL Creatinine 0.61 L (0.66-1.25) mg/dL Est GFR (CKD-EPI)AfAm >90 (>60 ml/min/1.73 sqM) Est GFR (CKD-EPI)NonAf >90 (>60 ml/min/1.73 sqM) Glucose 123 H (74-99) mg/dL Calcium 8.5 (8.4-10.2) mg/dL Magnesium (1.6-2.3) mg/dL Total Bilirubin 0.8 (0.2-1.3) mg/dL AST 91 H (17-59) U/L ALT 53 (21-72) U/L Alkaline Phosphatase 235 H (38-126) U/L Troponin I (0.000-0.034) ng/mL Total Protein 7.8 (6.3-8.2) g/dL Albumin 3.6 (3.5-5.0) g/dL Serum Alcohol mg/dL Blood Type Blood Type Recheck Bld Type Recheck Status Antibody Screen Spec Expiration Date 03/11/19 03/11/19 03/11/19 Range/Units 09:50 09:50 09:50 WBC (3.8-10.6) k/uL RBC (4.30-5.90) m/uL Hgb (13.0-17.5) gm/dL Hct (39.0-53.0) % MCV (80.0-100.0) fL MCH (25.0-35.0) pg MCHC (31.0-37.0) g/dL RDW (11.5-15.5) % Plt Count (150-450) k/uL Neutrophils % % Lymphocytes % % Monocytes % % Eosinophils % % Basophils % % Neutrophils # (1.3-7.7) k/uL Lymphocytes # (1.0-4.8) k/uL Monocytes # (0-1.0) k/uL Eosinophils # (0-0.7) k/uL Basophils # (0-0.2) k/uL Hypochromasia Anisocytosis APTT (22.0-30.0) sec Sodium (137-145) mmol/L Potassium (3.5-5.1) mmol/L Chloride (98-107) mmol/L Carbon Dioxide (22-30) mmol/L Anion Gap mmol/L BUN (9-20) mg/dL Creatinine (0.66-1.25) mg/dL Est GFR (CKD-EPI)AfAm (>60 ml/min/1.73 sqM) Est GFR (CKD-EPI)NonAf (>60 ml/min/1.73 sqM) Glucose (74-99) mg/dL Calcium (8.4-10.2) mg/dL Magnesium 1.3 L (1.6-2.3) mg/dL Total Bilirubin (0.2-1.3) mg/dL AST (17-59) U/L ALT (21-72) U/L Alkaline Phosphatase (38-126) U/L Troponin I <0.012 (0.000-0.034) ng/mL Total Protein (6.3-8.2) g/dL Albumin (3.5-5.0) g/dL Serum Alcohol mg/dL Blood Type A Positive Blood Type Recheck A Pos Bld Type Recheck Status No Antibody Screen NEGATIVE Spec Expiration Date 03/14/2019 - 234903/11/19 Range/Units 11:46 WBC (3.8-10.6) k/uL RBC (4.30-5.90) m/uL Hgb (13.0-17.5) gm/dL Hct (39.0-53.0) % MCV (80.0-100.0) fL MCH (25.0-35.0) pg MCHC (31.0-37.0) g/dL RDW (11.5-15.5) % Plt Count (150-450) k/uL Neutrophils % % Lymphocytes % % Monocytes % % Eosinophils % % Basophils % % Neutrophils # (1.3-7.7) k/uL Lymphocytes # (1.0-4.8) k/uL Monocytes # (0-1.0) k/uL Eosinophils # (0-0.7) k/uL Basophils # (0-0.2) k/uL Hypochromasia Anisocytosis APTT (22.0-30.0) sec Sodium (137-145) mmol/L Potassium (3.5-5.1) mmol/L Chloride (98-107) mmol/L Carbon Dioxide (22-30) mmol/L Anion Gap mmol/L BUN (9-20) mg/dL Creatinine (0.66-1.25) mg/dL Est GFR (CKD-EPI)AfAm (>60 ml/min/1.73 sqM) Est GFR (CKD-EPI)NonAf (>60 ml/min/1.73 sqM) Glucose (74-99) mg/dL Calcium (8.4-10.2) mg/dL Magnesium (1.6-2.3) mg/dL Total Bilirubin (0.2-1.3) mg/dL AST (17-59) U/L ALT (21-72) U/L Alkaline Phosphatase (38-126) U/L Troponin I (0.000-0.034) ng/mL Total Protein (6.3-8.2) g/dL Albumin (3.5-5.0) g/dL Serum Alcohol 31 mg/dL Blood Type Blood Type Recheck Bld Type Recheck Status Antibody Screen Spec Expiration Date 03/11/19 10:50 EKG shows sinus tachycardia, otherwise normal EKG. Ventricular rate of 134 bpm. SD interval is 144 ms. QS duration 70 ms. QT QTc is 282/421 ms. (Stacey Whipple) - Radiology Data Bilateral shoulder x-rays show subacute left humeral neck fracture with callus formation. Chest x-ray shows rotated study demonstrating no definite abnormality. CT of the C-spine shows no acute osseous lesion. Degenerative changes noted. CT of the brain without contrast shows no acute intracranial abnormality. (Stacey Whipple) Disposition Is patient prescribed a controlled substance at d/c from ED?: No Time of Disposition: 12:10 <Stacey Whipple - Last Filed: 03/11/19 12:10> <Fifi Felton - Last Filed: 03/14/19 16:03> Clinical Impression: Fall, Upper GI bleed, Tachycardia, Nausea and vomiting, Humerus fracture, Right shoulder pain Disposition: ADMITTED IP TO THIS HOSP Condition: Stable
[2019-03-11] MEDS ORDERED: amLODIPine 5 MG TAB PO STA (10:49)
--- NOTE | 2019-03-11 10:52 | CT ---
EXAMINATION TYPE: CT brain gracieine wo con DATE OF EXAM: 03/11/2019 COMPARISON: Previous study dated 12/12/2018. HISTORY: Fall, LOC CT DLP: 1369.2 mGycm Automated exposure control for dose reduction was used. TECHNIQUE: CT scan of the head and cervical spine are performed without contrast. FINDINGS: BRAIN: Central structures are midline. There is no evidence of hydrocephalus. No acute focal lesion, mass effect or midline shift is seen. I do not see evidence of intracranial blood. Visualized portions of the paranasal sinuses and mastoids are clear. The bony calvarium is intact. IMPRESSION: NO ACUTE INTRACRANIAL ABNORMALITY. CERVICAL SPINE: There is some airspace disease in the apical posterior segment of the right upper lob e. Visualized portions of the lungs are otherwise clear. Prevertebral soft tissues appear normal. Vertebral body height and alignment are maintained. Atlantoaxial relationships are normal. There is d egenerative disc disease and hypertrophic spondylosis most severe at C3-4 but also present at C5-6 an d C6-7. There is uncovertebral joint disease present at these levels. There is facet arthropathy on t he right at C2-3 and bilaterally at C3-4 and C4-5. No definite protrusion is seen. No fracture is cecilia ntified. IMPRESSION: 1. NO ACUTE OSSEOUS LESION. 2. DEGENERATIVE CHANGE. 3. RIGHT UPPER LOBE AIRSPACE DISEASE MAY REFLECT EARLY PNEUMONIA.
--- NOTE | 2019-03-11 11:33 | XR ---
EXAMINATION TYPE: XR chest 1V DATE OF EXAM: 03/11/2019 HISTORY: pain. REFERENCE: Previous study dated 02/05/2019. FINDINGS: The study is rotated. Heart size is within normal limits. There are some chronic pleural pa renchymal changes present. There is no acute pneumonia or edema. I do not see evidence of pneumothora x. No acute osseous lesion is seen. IMPRESSION: ROTATED STUDY DEMONSTRATING NO DEFINITE ABNORMALITY.
--- NOTE | 2019-03-11 11:37 | XR ---
EXAMINATION TYPE: XR shoulder complete BILAT , 6 VIEWS DATE OF EXAM ORDERED: 03/11/2019 HISTORY: fall, hx R shoulder fx, new L shoulder pain. COMPARISON: Previous study dated 02/05/2019. FINDINGS: There is evidence of an old fracture of the left humeral neck. There are degenerative manzanares ges present in the left AC IMPRESSION: SUBACUTE LEFT HUMERAL NECK FRACTURE WITH CALLUS FORMATION.
[2019-03-11] MEDS ORDERED: SODIUM CHLORIDE 0.9% 1,000 ML IV ONE (11:39)
[2019-03-11] MEDS ORDERED: THIAMINE 100 MG/ML 2 ML VIAL IM STA (11:57)
[2019-03-11] MEDS ORDERED: LORazepam 2 MG/ML INJ IV PRN (11:57)
[2019-03-11] MEDS ORDERED: NALOXONE 0.4 MG/ML 1 ML VIAL IV PRN (12:13)
[2019-03-11] MEDS ORDERED: MAGNESIUM SULFATE-D5W PMX 1 GM in DEXTROSE/WATER 1 100ML.BAG IVPB ONE (12:49)
[2019-03-11 12:55] LABS: Anisocytosis Slight; Basophils % (A) 1 %; Eosinophils # (A) 0.1 k/uL (0-0.7); Eosinophils % (A) 1 %; HCT 29.3 % (39.0-53.0); HGB 9.4 gm/dL (13.0-17.5); Hypochromasia Moderate; Lymphocytes # (A) 0.7 k/uL (1.0-4.8); Lymphocytes % (A) 10 %; MCV 87.4 fL (80.0-100.0); Mean Platelet Volume 6.5; Monocytes # (A) 0.4 k/uL (0-1.0); Monocytes % (A) 6 %; Neutrophils # (A) 5.1 k/uL (1.3-7.7); Neutrophils % (A) 81 %; Platelet Count 162 k/uL (150-450); RBC 3.35 m/uL (4.30-5.90); WBC 6.4 k/uL (3.8-10.6)
[2019-03-11] MEDS: LORazepam 2 MG/ML INJ IV PRN ×3 (12:56→18:21)
[2019-03-11] MEDS: MORPHINE SULFATE 4 MG/ML SYRINGE IV PRN (14:52)
[2019-03-11 15:23] VITALS: BMI 27.2
--- NOTE | 2019-03-11 15:25 | P.CNPUL ---
History of Present Illness Consult date: 03/11/19 Requesting physician: Diana Riley Reason for consult: other (Critical care management) Chief complaint: Shoulder pain status post fall, vomiting blood History of present illness: This is a very pleasant 63-year-old gentleman who follows with Yoon Phillips as his primary care physician. He has a history of atrial fibrillation, CVA/TIA, diabetes mellitus, GERD, GI bleed, hyperlipidemia, hypertension, pulmonary embolism 2 in the right lung, chronic alcoholic cirrhosis with portal hypertension and previous history of upper and lower GI bleeding, esophageal varices, MRSA infections, falls with recent hospitalization with a broken left humerus area he was discharged to a subacute rehabilitation center on 02/08/2019. He had been back at home in his apartment where he states he tri pped over a tile in the bathroom and fell in the shower. ET scan of the brain and C-spine showed no acute osseous lesions or fractures. No acute intracranial abnormality. His chest x-ray shows no acute pulmonary process. Bilateral shoulder x-rays reveal evidence of an old fracture in the left humeral neck. Degenerative changes. No acute fracture. This patient also stated he was coughing up blood clots. Initial hemoglobin 10.6. Current hemoglobin 9.4. There is concern regarding active GI bleeding and he was admitted to the intensive care unit for the same. He is seen today in consultation. He is currently awake and alert in no acute distress. He denies loss of consciousness or syncopal episodes. He did trip and fall into the shower. No shortness of breath, cough or congestion. He is currently nauseated and has the hiccups. He denies having been drinking however his alcohol level is currently 31. White count 6.4. Creatinine 0.61. Potassium 4.2. Magnesium 1.3. Troponin negative 1. AST 91. He has been placed in the CIWA protocol. He is maintaining O2 saturations in the mid 90s on 2 L/m per nasal cannula. The pressure stable. He is tachycardic in the 120s. Sinus tachycardia. His last EGD was 11/02/2018 that showed evidence of severe LA grade D reflux esophagitis and diffuse antral gastritis. No evidence of esophageal varices at that time. Review of Systems REVIEW OF SYSTEMS: CONSTITUTIONAL: Denies any recent significant weight loss or weight gain. EYES: Denies change in vision. EARS, NOSE, MOUTH, THROAT: Denies headaches, denies sore throat. CARDIOVASCULAR: Denies chest pain, palpitations or syncopal episodes. RESPIRATORY: Denies shortness of breath, cough, congestion or hemoptysis. GASTROINTESTINAL: Abdominal discomfort, nausea, hematoemesis. GENITOURINARY: Denies hematuria, denies infections. MUSKULOSKELETAL: Positive for generalized pain from recent fall, recent left humeral fracture.. INTEGUMENTARY: Denies rash, denies eczema. NEUROLOGICAL: Denies recent memory loss, no recent seizure activity. PSYCHIATRIC: Denies anxiety, denies depression. HEMATOLOGIC/LYMPHATIC: Denies anemia, denies enlarged lymph nodes. Past Medical History Past Medical History: Atrial Fibrillation, Cancer, Chest Pain / Angina, COPD, CVA/TIA, Diabetes Mellitus, GERD/Reflux, GI Bleed, Hyperlipidemia, Hypertension, Pneumonia, Prostate Disorder, Pulmonary Embolus (PE) Additional Past Medical History / Comment(s): tachycardia/palpitations likely d/t alcohol withdrawal. hx of Alcoholism, chronic alcoholic cirrhosis with portal hypertension and previous history of upper and lower GI bleeding, esophageal varices, previous history of childhood seizure which he outgrew not taking any antiepileptic medication-possibly had recent seizure-2018 thought d/t alcohol withdrawal, pulmonary embolism x 2 R lung, TIA, diverticulosis, chronic lower bilateral extremity ankle edema if he walks alot, previous history of septicemia, cervical disc disease with chronic back pain with r sided sciatica, degenerative arthritis involving the lower back, tinnitus, vitamin D deficiency, iron anemia, chronic thrombocytopenia, denies MRSA, C-DIFF , scoliosis, scoliosis. pt had radiation 04/28 for prostate cancer History of Any Multi-Drug Resistant Organisms: MRSA Date of last positivie culture/infection: none MDRO Source:: none Past Surgical History: Appendectomy, Cholecystectomy Additional Past Surgical History / Comment(s): EGDs/esophageal varicies bandings, colonoscopies. Past Anesthesia/Blood Transfusion Reactions: No Reported Reaction Additional Past Anesthesia/Blood Transfusion Reaction / Comment(s): after appendix removed sob Past Psychological History: Anxiety, Depression Additional Psychological History / Comment(s): Pt lives in an apartment alone. Apartment complex has front door ramp and has an elevator. no pets. Sometimes his sister stays with him and cleans his home. He uses a cane to ambulate at times. He drives but currently has no car. He gets to [facility] by [employer] bus. He has a nebulizer and a glucometer.pt stated he was getting [facility] home care nurse but has'nt seen them in few days,not sure if they're still coming. Used to work in [employer]. Relates that he's not been a smoker. Denies recreational drug use. His left him many years ago he has adult children that he does not see very often. No experience. No travel history. No animal exposures Smoking Status: Never smoker Past Alcohol Use History: Abuse, Daily, Heavy Additional Past Alcohol Use History / Comment(s): pt reports drinking every 2-3 days in which he says he drinks a fifth of rum. Past Drug Use History: None Reported - Past Family History Mother Family Medical History: COPD, CVA/TIA, Dementia Additional Family Medical History / Comment(s): from a stroke Father Family Medical History: Pneumonia Additional Family Medical History / Comment(s): Father of pneumonia when he was close to 80 yrs old. Medications and Allergies Home Medications Medication Instructions Recorded Confirmed Type cloNIDine HCL [Catapres] 0.1 mg PO BID #60 tab 03/26/18 03/11/19 Rx Ferrous Sulfate [Iron (65 MG 325 mg PO DAILY 04/24/18 03/11/19 History Elemental)] amLODIPine [Norvasc] 5 mg PO BID 08/25/18 03/11/19 History metFORMIN HCL [Glucophage] 500 mg PO BID 10/19/18 03/11/19 History Sucralfate [Carafate] 1 gm PO AC-TID 30 Days #90 tab 10/24/18 03/11/19 Rx Magnesium Oxide [Mag-Ox] 400 mg PO DAILY #20 tablet 11/01/18 03/11/19 Rx Pantoprazole Sodium [Protonix] 40 mg PO BID #60 tablet. 11/04/18 03/11/19 Rx Multivitamins, Thera [Multivitamin 1 tab PO DAILY 12/12/18 03/11/19 History (formulary)] Budesonide-Formot 160-4.5 Mcg 2 puff INHALATION RT-BID #1 inh 12/15/18 03/11/19 Rx [Symbicort 160-4.5 Mcg Inhaler] Folic Acid 1 mg PO AC-LUNCH #30 tab 12/15/18 03/11/19 Rx Thiamine Mononitrate (Vit B1) 100 mg PO DAILY@1200 12/29/18 03/11/19 History [Vitamin B-1] Acetaminophen Tab [Tylenol] 500 mg PO Q6HR tab 02/08/19 03/11/19 Rx HYDROcodone/APAP 7.5-325MG [[place] 1 each PO Q4H PRN #18 tab 02/08/19 03/11/19 Rx 7.5-325] INSULIN LISPRO (HumaLOG) [humaLOG] 0 unit SQ ACHS #1 vial 02/08/19 03/11/19 Rx LORazepam [Ativan] 1 mg PO Q8H PRN 3 Days #9 tab 02/08/19 03/11/19 Rx Allergies Allergy/AdvReac Type Severity Reaction Status Date / Time adhesive tape Allergy Rash/Hives Verified 03/11/19 09:47 latex Allergy Unknown Verified 03/11/19 09:47 egg AdvReac Nausea & Verified 03/11/19 09:47 Vomiting lisinopril AdvReac EYES Verified 03/11/19 09:47 BURN&ITCH/WEAKNESS tomato AdvReac Nausea & Verified 03/11/19 09:47 Vomiting & Diarrhea Physical Exam Vitals: Vital Signs Temp Pulse Resp BP Pulse Ox 03/11/19 14:49 99.2 F 128 H 18 149/90 97 03/11/19 13:59 127 H 18 159/105 97 03/11/19 12:46 133 H 18 143/91 95 03/11/19 11:37 138 H 18 136/81 96 03/11/19 09:08 98.2 F 135 H 20 140/85 96 Intake and Output 03/11/19 03/11/19 03/11/19 06:59 14:59 22:59 Other: Weight 68.039 kg GENERAL EXAM: Alert, wasn't 63-year-old gentleman, on 2 L, comfortable in no a pparent distress. HEAD: Normocephalic. EYES: Normal reaction of pupils, equal size. NOSE: Clear with pink turbinates. THROAT: No erythema or exudates. NECK: No masses, no JVD. CHEST: No chest wall deformity. LUNGS: Equal air entry with no crackles, wheeze, rhonchi or dullness. CVS: S1 and S2 normal with no audible murmur, regular rhythm. Tachycardic. ABDOMEN: No hepatosplenomegaly, normal bowel sounds, no guarding or rigidity. SPINE: No scoliosis or deformity SKIN: No rashes CENTRAL NERVOUS SYSTEM: No focal deficits, tone is normal in all 4 extremities. EXTREMITIES: There is no peripheral edema. No clubbing, no cyanosis. Peripheral pulses are intact. Results - Laboratory Findings CBC and BMP: 03/11/19 12:50 03/11/19 09:50 Abnormal lab findings: Abnormal Labs 03/11/19 03/11/19 03/11/19 09:50 09:50 09:50 RBC 3.80 L Hgb 10.6 L Hct 33.2 L RDW 18.0 H Lymphocytes # 0.4 L BUN 8 L Creatinine 0.61 L Glucose 123 H Magnesium 1.3 L AST 91 H Alkaline Phosphatase 235 H 03/11/19 12:50 RBC 3.35 L Hgb 9.4 L Hct 29.3 L RDW 18.0 H Lymphocytes # 0.7 L BUN Creatinine Glucose Magnesium AST Alkaline Phosphatase - Diagnostic Findings Chest x-ray: image reviewed Assessment and Plan Assessment: Impression: #1 Acute GI bleed, suspect upper, in a patient with a known history of LAD grade D reflux esophagitis on EGD October 2018. Current hemoglobin 9.4. #2 Skeletal pain secondary to fall. #3 Recent hospitalization following left humeral fracture. Had been discharged to [facility]. #4 History of heavy alcohol abuse with alcoholic liver disease/cirrhosis. EtOH level 31. #5 Hypertension. #6 Hyperlipidemia. #7 Diabetes mellitus. #8 Remote history of pulmonary embolism. #9 History of seizures as a child. Plan: The patient was seen and evaluated by Dr. Marcus. Chest x-ray, computed tomography scan and labs reviewed. We'll continue to monitor him closely here in the intensive care unit. Continue to monitor his hemoglobin. Currently on Protonix 40 mg IV daily. 0.9 normal saline at 100 ML's per hour. Initiated on thiamine. He is on the CIWA protocol. Provide adequate pain control. We will continue to follow and make further recommendations based on his clinical status. I, the cosigning physician, performed a history & physical examination of the patient. Lungs sounds are clear. Maintaining good O2 saturations in the 90s on 2 L/m per nasal cannula. I discussed the assessment and plan of care with my nurse practitioner, Xuan Gresham. I attest to the above consultation as dictated by her. Time with Patient: Greater than 30
--- NOTE | 2019-03-11 16:26 | P.HPIM ---
History of Present Illness this is a pleasant 63 years old male with past medical history of atrial fibrillation, coronary artery disease, COPD, diabetes mellitus, CVA/TIA, GERD, GI bleed, hyperlipidemia, hypertension, prostate disorders, pulmonary embolism, alcohol withdrawal and alcohol abuse, chronic alcoholic liver disease with portal hypertension with previous right upper and lower GI bleeding gastric, diverticulosis, alcohol withdrawal seizure. He presents because he fell in his bathroom yesterday and bumped up when he says that his toes and shows get caught up, he fell on his right shoulder and he hit his head as well he is not sure if he passed out, after that he call for his nephew to help him sit up where he went to his chair, at that time he was complaining of from pain at his right shoulder however he didn't want to come to the hospital, he waited till next day morning which is today when his right shoulder pain become more severe and he decided to come to emergency room. In the emergency room at Hospital he threw up twice with blood, also states that he started having abdominal pain in the upper abdomen epigastric and left upper quadrant. Patient is constipated and his last bowel movement was yesterday evening. He denies coughing or chest pain. No dyspnea. No weakness in arm or leg. Patient states that he was in [facility] for [facility]hab 3 weeks ago after he fell and hurt his left upper arm. He was discharged from rehab to home 3-4 days ago On admission he was tachycardic with heart rate of 133, blood pressure 149/90, oxygen saturation 96% and 2 L On admission hemoglobin 9.4, creatinine 0.6, magnesium 1.3, troponin is negativ e, alcohol was 31 which is slightly elevated, although patient denies drinking alcohol Review of Systems CONSTITUTIONAL: No fever, no malaise, no fatigue. HEENT: No recent visual problems or hearing problems. Denied any sore throat. CARDIOVASCULAR: No orthopnea, PND, no palpitations, no syncope. PULMONARY: No shortness of breath, no cough, no hemoptysis. GASTROINTESTINAL: No diarrhea,Normoactive bowel sounds. NEUROLOGICAL: No headaches, no weakness, no numbness. HEMATOLOGICAL: Denies any bleeding or petechiae. GENITOURINARY: Denies any burning micturition, frequency, or urgency. MUSCULOSKELETAL/RHEUMATOLOGICAL: Denies any joint pain, swelling, or any muscle pain. ENDOCRINE: Denies any polyuria or polydipsia. Past Medical History Past Medical History: Atrial Fibrillation, Cancer, Chest Pain / Angina, COPD, C VA/TIA, Diabetes Mellitus, GERD/Reflux, GI Bleed, Hyperlipidemia, Hypertension, Pneumonia, Prostate Disorder, Pulmonary Embolus (PE) Additional Past Medical History / Comment(s): tachycardia/palpitations likely d/t alcohol withdrawal. hx of Alcoholism, chronic alcoholic cirrhosis with portal hypertension and previous history of upper and lower GI bleeding, esophageal varices, previous history of childhood seizure which he outgrew not taking any antiepileptic medication-possibly had recent seizure-2018 thought d/t alcohol withdrawal, pulmonary embolism x 2 R lung, TIA, diverticulosis, chronic lower bilateral extremity ankle edema if he walks alot, previous history of septicemia, cervical disc disease with chronic back pain with r sided sciatica, degenerative arthritis involving the lower back, tinnitus, vitamin D deficiency, iron anemia, chronic thrombocytopenia, denies MRSA, C-DIFF , scoliosis, scoliosis. pt had radiation 04/28 for prostate cancer History of Any Multi-Drug Resistant Organisms: MRSA Date of last positivie culture/infection: none MDRO Source:: none Past Surgical History: Appendectomy, Cholecystectomy Additional Past Surgical History / Comment(s): EGDs/esophageal varicies bandings, colonoscopies. Past Anesthesia/Blood Transfusion Reactions: No Reported Reaction Additional Past Anesthesia/Blood Transfusion Reaction / Comment(s): after appendix removed sob Past Psychological History: Anxiety, Depression Additional Psychological History / Comment(s): Pt lives in an apartment alone. Apartment complex has front door ramp and has an elevator. no pets. Sometimes his sister stays with him and cleans his home. He uses a cane to ambulate at times. He drives but currently has no car. He gets to [facility] by [employer] bus. He has a nebulizer and a glucometer.pt stated he was getting [facility] home care nurse but has'nt seen them in few days,not sure if they're still coming. Used to work in [employer]. Relates that he's not been a smoker. Denies recreational drug use. His left him many years ago he has adult children that he does not see very often. No experience. No travel history. No animal exposures Smoking Status: Never smoker Past Alcohol Use History: Abuse, Daily, Heavy Additional Past Alcohol Use History / Comment(s): pt reports drinking every 2-3 days in which he says he drinks a fifth of rum. Past Drug Use History: None Reported - Past Family History Mother Family Medical History: COPD, CVA/TIA, Dementia Additional Family Medical History / Comment(s): from a stroke Father Family Medical History: Pneumonia Additional Family Medical History / Comment(s): Father of pneumonia when he was close to 80 yrs old. Medications and Allergies Home Medications Medication Instructions Recorded Confirmed Type cloNIDine HCL [Catapres] 0.1 mg PO BID #60 tab 03/26/18 03/11/19 Rx Ferrous Sulfate [Iron (65 MG 325 mg PO DAILY 04/24/18 03/11/19 History Elemental)] amLODIPine [Norvasc] 5 mg PO BID 08/25/18 03/11/19 History metFORMIN HCL [Glucophage] 500 mg PO BID 10/19/18 03/11/19 History Sucralfate [Carafate] 1 gm PO AC-TID 30 Days #90 tab 10/24/18 03/11/19 Rx Magnesium Oxide [Mag-Ox] 400 mg PO DAILY #20 tablet 11/01/18 03/11/19 Rx Pantoprazole Sodium [Protonix] 40 mg PO BID #60 tablet. 11/04/18 03/11/19 Rx Multivitamins, Thera [Multivitamin 1 tab PO DAILY 12/12/18 03/11/19 History (formulary)] Budesonide-Formot 160-4.5 Mcg 2 puff INHALATION RT-BID #1 inh 12/15/18 03/11/19 Rx [Symbicort 160-4.5 Mcg Inhaler] Folic Acid 1 mg PO AC-LUNCH #30 tab 12/15/18 03/11/19 Rx Thiamine Mononitrate (Vit B1) 100 mg PO DAILY@1200 12/29/18 03/11/19 History [Vitamin B-1] Acetaminophen Tab [Tylenol] 500 mg PO Q6HR tab 02/08/19 03/11/19 Rx HYDROcodone/APAP 7.5-325MG [[place] 1 each PO Q4H PRN #18 tab 02/08/19 03/11/19 Rx 7.5-325] LORazepam [Ativan] 1 mg PO Q8H PRN 3 Days #9 tab 02/08/19 03/11/19 Rx Allergies Allergy/AdvReac Type Severity Reaction Status Date / Time adhesive tape Allergy Rash/Hives Verified 03/11/19 09:47 latex Allergy Unknown Verified 03/11/19 09:47 egg AdvReac Nausea & Verified 03/11/19 09:47 Vomiting lisinopril AdvReac EYES Verified 03/11/19 09:47 BURN&ITCH/WEAKNESS tomato AdvReac Nausea & Verified 03/11/19 09:47 Vomiting & Diarrhea Physical Exam Vitals: Vital Signs Temp Pulse Pulse Resp BP BP Pulse Ox 03/11/19 15:05 98.4 F 130 H 12 142/94 95 03/11/19 15:00 126 H 12 149/90 96 03/11/19 14:49 99.2 F 128 H 18 149/90 97 03/11/19 13:59 127 H 18 159/105 97 03/11/19 12:46 133 H 18 143/91 95 03/11/19 11:37 138 H 18 136/81 96 03/11/19 09:08 98.2 F 135 H 20 140/85 96 Intake and Output 03/11/19 03/11/19 03/11/19 06:59 14:59 22:59 Other: Weight 68.039 kg GENERAL: The patient is alert and oriented x2-3, not in any acute distress. HEENT: Pupils are round and equally reacting to light. EOMI. No scleral icterus. No conjunctival pallor. Normocephalic, atraumatic. No pharyngeal erythema. No thyromegaly. CARDIOVASCULAR: S1 and S2 present. No murmurs, rubs, or gallops. PULMONARY: Chest is clear to auscultation, no wheezing or crackles. -ABDOMEN: Soft, epigastric tenderness and a RLQ tenderness with no rebound tenderness, nondistended, normoactive bowel sounds. No palpable organomegaly. -MUSCULOSKELETAL: No joint swelling or deformity. Right shoulder tenderness EXTREMITIES: No cyanosis, clubbing, or pedal edema. NEUROLOGICAL: Gross neurological examination did not reveal any focal deficits. SKIN: No rashes. No petechiae Results CBC & Chem 7: 03/11/19 12:50 03/11/19 09:50 Labs: Abnormal Lab Results - Last 24 Hours (Table) 03/11/19 03/11/19 03/11/19 Range/Units 09:50 09:50 09:50 RBC 3.80 L (4.30-5.90) m/uL Hgb 10.6 L (13.0-17.5) gm/dL Hct 33.2 L (39.0-53.0) % RDW 18.0 H (11.5-15.5) % Lymphocytes # 0.4 L (1.0-4.8) k/uL BUN 8 L (9-20) mg/dL Creatinine 0.61 L (0.66-1.25) mg/dL Glucose 123 H (74-99) mg/dL Magnesium 1.3 L (1.6-2.3) mg/dL AST 91 H (17-59) U/L Alkaline Phosphatase 235 H (38-126) U/L 03/11/19 Range/Units 12:50 RBC 3.35 L (4.30-5.90) m/uL Hgb 9.4 L (13.0-17.5) gm/dL Hct 29.3 L (39.0-53.0) % RDW 18.0 H (11.5-15.5) % Lymphocytes # 0.7 L (1.0-4.8) k/uL BUN (9-20) mg/dL Creatinine (0.66-1.25) mg/dL Glucose (74-99) mg/dL Magnesium (1.6-2.3) mg/dL AST (17-59) U/L Alkaline Phosphatase (38-126) U/L Thrombosis Risk Factor Assmnt - Choose All That Apply Any of the Below Risk Factors Present?: Yes Each Factor Represents 1 point: Abnormal pulmonary function (COPD), Medical pt on bed rest Other Risk Factors: Yes Each Risk Factor Represents 2 Points: Age 61-74 years Other congenital or acquired thrombophilia - If yes, enter type in comment: No Thrombosis Risk Factor Assessment Total Risk Factor Score: 4 Thrombosis Risk Factor Assessment Level: Moderate Risk Assessment and Plan Assessment: Upper GI bleed Acute blood loss anemia upper abdominal pain fall with the right shoulder trauma Possible some elements of metabolic encephalopathy secondary to alcohol abuse and liver disease Liver cirrhosis secondary to alcoholic liver disease, portal hypertension Atrial fibrillation with RVR most likely patient has alcohol abuse although he denies it as his level was elevated Subacute left shoulder fracture, healing. There is History of coronary artery disease Diabetes mellitus History of TIA COPD, not in acute exacerbation GERD History of GI bleed Hyperlipidemia Hypertension Prostate disorder History of pulmonary embolism Alcohol abuse and history of local withdrawal and alcohol withdrawal seizure Diverticulosis Plan: This is a pleasant 63 years old male who presents with upper GI bleed and abdominal pain And fall. Patient was admitted to the ICU. Consult critical care team. Transfuse blood as needed to keep hemoglobin more than 7. Consult GI team. CIWA protocol, replace magnesium and electrolytes. Vitamins including thiamine. Continue with IV fluid. Protonix twice a day. Pain management Labs and medication were reviewed.. Continue same treatment. Continue with symptomatic treatment. Resume home medication. Monitor lytes and vitals. DVT and GI prophylaxis. Further recommendations of the clinical course of the patient DVT prophylaxis No heparin in view of GI bleeds GI Prophylaxis Protonix PT/OT: Pending Prognosis is guarded
[2019-03-11] MEDS: THIAMINE 100 MG TAB PO SCH (17:05)
[2019-03-11] MEDS: ONDANSETRON 4 MG/2 ML VIAL IVP PRN (18:37)
[2019-03-11 19:00] LABS: Anisocytosis Slight; Basophils # (A) 0.1 k/uL (0-0.2); Basophils % (A) 1 %; Eosinophils % (A) 1 %; HCT 31.6 % (39.0-53.0); HGB 9.8 gm/dL (13.0-17.5); Hypochromasia Marked; Lymphocytes # (A) 1.1 k/uL (1.0-4.8); Lymphocytes % (A) 22 %; MCH 27.8 pg (25.0-35.0); MCV 89.6 fL (80.0-100.0); Mean Platelet Volume 6.5; Monocytes # (A) 0.3 k/uL (0-1.0); Monocytes % (A) 5 %; Neutrophils # (A) 3.4 k/uL (1.3-7.7); Neutrophils % (A) 70 %; Platelet Count 151 k/uL (150-450); RBC 3.52 m/uL (4.30-5.90); RDW 17.8 % (11.5-15.5); WBC 4.9 k/uL (3.8-10.6)
[2019-03-11] MEDS: PANTOPRAZOLE 40 MG/10 ML VIAL IV SCH (19:51)
[2019-03-11] MEDS: HYDROmorphone 0.5 MG/0.5 ML SYRINGE IVP PRN ×2 (19:51→23:23)
[2019-03-12 00:41] LABS: Anisocytosis Slight; Basophils % (A) 1 %; Eosinophils % (A) 1 %; HCT 29.4 % (39.0-53.0); HGB 9.3 gm/dL (13.0-17.5); Hypochromasia Moderate; Lymphocytes # (A) 1.1 k/uL (1.0-4.8); Lymphocytes % (A) 21 %; MCH 27.6 pg (25.0-35.0); MCHC 31.5 g/dL (31.0-37.0); MCV 87.6 fL (80.0-100.0); Mean Platelet Volume 6.6; Monocytes # (A) 0.4 k/uL (0-1.0); Monocytes % (A) 8 %; Neutrophils # (A) 3.3 k/uL (1.3-7.7); Neutrophils % (A) 67 %; Platelet Count 144 k/uL (150-450); RBC 3.36 m/uL (4.30-5.90); RDW 17.7 % (11.5-15.5); WBC 4.9 k/uL (3.8-10.6)
[2019-03-12] MEDS: ONDANSETRON 4 MG/2 ML VIAL IVP PRN ×3 (00:49→19:33)
[2019-03-12 05:12] LABS: African American GFR (CKD) >90 (>60 ml/min/1.73 sqM); Anion Gap 9 mmol/L; Blood Urea Nitrogen 5 mg/dL (9-20); Calcium 8.5 mg/dL (8.4-10.2); Carbon Dioxide 26 mmol/L (22-30); Chloride 100 mmol/L (98-107); Glucose 139 mg/dL (74-99); Magnesium 1.3 mg/dL (1.6-2.3); Non-African American GFR(CKD) >90 (>60 ml/min/1.73 sqM); Potassium 3.5 mmol/L (3.5-5.1); Sodium 135 mmol/L (137-145)
[2019-03-12] MEDS: HYDROmorphone 0.5 MG/0.5 ML SYRINGE IVP PRN ×5 (05:17→23:58)
[2019-03-12 05:21] LABS: Anisocytosis Slight; Basophils % (A) 0 %; Eosinophils # (A) 0.1 k/uL (0-0.7); Eosinophils % (A) 2 %; HCT 31.6 % (39.0-53.0); HGB 9.9 gm/dL (13.0-17.5); Hypochromasia Moderate; Lymphocytes % (A) 26 %; MCH 27.6 pg (25.0-35.0); MCHC 31.5 g/dL (31.0-37.0); MCV 87.6 fL (80.0-100.0); Monocytes # (A) 0.3 k/uL (0-1.0); Monocytes % (A) 9 %; Neutrophils # (A) 2.4 k/uL (1.3-7.7); Neutrophils % (A) 61 %; Platelet Count 148 k/uL (150-450); RDW 17.6 % (11.5-15.5); WBC 3.9 k/uL (3.8-10.6)
[2019-03-12] MEDS ORDERED: Magnesium Replacement Protocol 1 EACH MISC MISCELLANE PRN (06:44)
[2019-03-12] MEDS ORDERED: Potassium Replacement Protocol 1 EACH MISC MISCELLANE PRN (06:44)
[2019-03-12] MEDS: THIAMINE 100 MG TAB PO SCH ×2 (07:12→17:57)
[2019-03-12] MEDS: POTASSIUM CHLORIDE ER 20 MEQ TAB.ER PO SCH ×2 (07:12→07:50)
[2019-03-12] MEDS: MAGNESIUM SULFATE-D5W PMX 1 GM in DEXTROSE/WATER 1 100ML.BAG IVPB SCH ×3 (07:12→10:25)
[2019-03-12] MEDS: PANTOPRAZOLE 40 MG/10 ML VIAL IV SCH ×2 (07:51→20:47)
[2019-03-12] MEDS: LORazepam 2 MG/ML INJ IV PRN ×5 (08:45→22:00)
[2019-03-12] MEDS ORDERED: PANTOPRAZOLE 40 MG/10 ML VIAL IV SCH (09:00)
--- NOTE | 2019-03-12 11:39 | P.PN ---
Subjective this is a pleasant 63 years old male with past medical history of atrial fibrillation, coronary artery disease, COPD, diabetes mellitus, CVA/TIA, GERD, GI bleed, hyperlipidemia, hypertension, prostate disorders, pulmonary embolism, alcohol withdrawal and alcohol abuse, chronic alcoholic liver disease with portal hypertension with previous right upper and lower GI bleeding gastric, diverticulosis, alcohol withdrawal seizure. He presents because he fell in his bathroom yesterday and bumped up when he says that his toes and shows get caught up, he fell on his right shoulder and he hit his head as well he is not sure if he passed out, after that he call for his nephew to help him sit up where he went to his chair, at that time he was complaining of from pain at his right shoulder however he didn't want to come to the hospital, he waited till next day morning which is today when his right shoulder pain become more severe and he decided to come to emergency room. In the emergency room at Hospital he threw up twice with blood, also states that he started having abdominal pain in the upper abdomen epigastric and left upper quadrant. Patient is constipated and his last bowel movement was yesterday evening. He denies coughing or chest pain. No dyspnea. No weakness in arm or leg. Patient states that he was in [facility] for [facility] 3 weeks ago after he fell and hurt his left upper arm. He was discharged from rehab to home 3-4 days ago On admission he was tachycardic with heart rate of 133, blood pressure 149/90, oxygen saturation 96% and 2 L On admission hemoglobin 9.4, creatinine 0.6, magnesium 1.3, troponin is negative, alcohol was 31 which is slightly elevated, although patient denies drinking alcohol 03/12/2019 Patient is more awake and alert today, his Morcom, he still complaining from pain in his left shoulder area and directed about 01/24, slightly is in place. No more vomiting blood, abdominal pain resolved. Patient denies hallucination or delusions however his CIWA score this morning was 12 and received Ativan and his heart rate went up. So she'll kept in the ICU today for further monitoring. GI team are planning to do EGD in the a.m. Patient admits to drinking some alcohol with his nephew per, to the hospital. Discussed with the patient the need for placement given his history of multiple medical problems and frequent hospitalizations and frequent falls and he agrees. I will consult certified social workers in health care Review of systems CONSTITUTIONAL: No fever, no malaise, no fatigue. HEENT: No recent visual problems or hearing problems. Denied any sore throat. CARDIOVASCULAR: No orthopnea, PND, no palpitations, no syncope. PULMONARY: No shortness of breath, no cough, no hemoptysis. GASTROINTESTINAL: No diarrhea,Normoactive bowel sounds. NEUROLOGICAL: No headaches, no weakness, no numbness. HEMATOLOGICAL: Denies any bleeding or petechiae. GENITOURINARY: Denies any burning micturition, frequency, or urgency. MUSCULOSKELETAL/RHEUMATOLOGICAL: Denies any joint pain, swelling, or any muscle pain. ENDOCRINE: Denies any polyuria or polydipsia. Objective - Vital Signs Vital signs: Vital Signs Temp 98.3 F 03/12/19 08:00 Pulse 107 H 03/12/19 11:00 Resp 12 03/12/19 11:00 BP 119/79 03/12/19 11:00 Pulse Ox 96 03/12/19 11:00 Intake & Output 03/11/19 03/12/19 03/12/19 18:59 06:59 18:59 Intake Total 400 1200 600 Output Total 1451 2076 700 Balance -1051 -876 -100 Weight 68.039 kg 78.4 kg Intake: IV 400 1200 600 Magnesium Sulfate-D5w Pmx 300 1 gm In Dextrose/Water 1 100ml.bag @ 100 mls/hr IVPB ONCE ONE Rx#: [id number] Sodium Chloride 0.9% 1, 400 1200 300 000 ml @ 100 mls/hr IV . Q10H STA Rx#:[id number] Output: Urine 1450 2075 700 Stool 1 1 Other: Voiding Method Urinal Urinal # Voids 1 # Bowel Movements 1 - Exam GENERAL: The patient is alert and oriented x3, not in any acute distress. Well developed, well nourished. HEENT: Pupils are round and equally reacting to light. EOMI. No scleral icterus. No conjunctival pallor. Normocephalic, atraumatic. No pharyngeal erythema. No thyromegaly. CARDIOVASCULAR: S1 and S2 present. No murmurs, rubs, or gallops. PULMONARY: Chest is clear to auscultation, no wheezing or crackles. ABDOMEN: Soft, nontender, nondistended, normoactive bowel sounds. No palpable organomegaly. MUSCULOSKELETAL: No joint swelling or deformity. Left shoulder tenderness, sling is in place EXTREMITIES: No cyanosis, clubbing, or pedal edema. NEUROLOGICAL: Gross neurological examination did not reveal any focal deficits. SKIN: No rashes. no petechiae. - Labs CBC & Chem 7: 03/12/19 04:24 03/12/19 04:24 Labs: Abnormal Lab Results - Last 24 Hours (Table) 03/11/19 03/11/19 03/11/19 Range/Units 12:50 18:22 23:56 RBC 3.35 L 3.52 L 3.36 L (4.30-5.90) m/uL Hgb 9.4 L 9.8 L 9.3 L (13.0-17.5) gm/dL Hct 29.3 L 31.6 L 29.4 L (39.0-53.0) % RDW 18.0 H 17.8 H 17.7 H (11.5-15.5) % Plt Count 144 L (150-450) k/uL Lymphocytes # 0.7 L (1.0-4.8) k/uL Sodium (137-145) mmol/L BUN (9-20) mg/dL Creatinine (0.66-1.25) mg/dL Glucose (74-99) mg/dL Magnesium (1.6-2.3) mg/dL 03/12/19 03/12/19 Range/Units 04:24 04:24 RBC 3.60 L (4.30-5.90) m/uL Hgb 9.9 L (13.0-17.5) gm/dL Hct 31.6 L (39.0-53.0) % RDW 17.6 H (11.5-15.5) % Plt Count 148 L (150-450) k/uL Lymphocytes # (1.0-4.8) k/uL Sodium 135 L (137-145) mmol/L BUN 5 L (9-20) mg/dL Creatinine 0.54 L (0.66-1.25) mg/dL Glucose 139 H (74-99) mg/dL Magnesium 1.3 L (1.6-2.3) mg/dL Assessment and Plan Assessment: Upper GI bleed Acute blood loss anemia upper abdominal pain fall with the right shoulder trauma Possible some elements of metabolic encephalopathy secondary to alcohol abuse and liver disease Liver cirrhosis secondary to alcoholic liver disease, portal hypertension Atrial fibrillation with RVR most likely patient has alcohol abuse although he denies it as his level was elevated Subacute left shoulder fracture, healing. There is History of coronary artery disease Diabetes mellitus History of TIA COPD, not in acute exacerbation GERD History of GI bleed Hyperlipidemia Hypertension Prostate disorder History of pulmonary embolism Alcohol abuse and history of local withdrawal and alcohol withdrawal seizure Diverticulosis Plan: This is a pleasant 63 years old male who presents with upper GI bleed and abdominal pain And fall. Patient was admitted to the ICU. Consult critical care team. Transfuse blood as needed to keep hemoglobin more than 7. Follow-up recommendation by GI team recommended EGD. CIWA protocol, replace magnesium and electrolytes. Vitamins including thiamine. Continue with IV fluid. Protonix twice a day. Pain management Labs and medication were reviewed.. Continue same treatment. Continue with symptomatic treatment. Resume home medication. Monitor lytes and vitals. DVT and GI prophylaxis. Further recommendations of the clinical course of the patient DVT prophylaxis No heparin in view of GI bleeds GI Prophylaxis Protonix PT/OT: Pending Prognosis is guarded
--- NOTE | 2019-03-12 11:40 | P.PN ---
Subjective Progress Note Date: 03/12/19 Principal diagnosis: Acute upper GI bleeding, and impending alcohol withdrawal. This is a very pleasant 63-year-old gentleman who follows with Yoon Phillips as his primary care physician. He has a history of atrial fibrillation, CVA/TIA, diabetes mellitus, GERD, GI bleed, hyperlipidemia, hypertension, pulmonary embolism 2 in the right lung, chronic alcoholic cirrhosis with portal hypertension and previous history of upper and lower GI bleeding, esophageal varices, MRSA infections, falls with recent hospitalization with a broken left humerus area he was discharged to a subacute rehabilitation center on 02/08/2019. He had been back at home in his apartment where he states he tripped over a tile in the bathroom and fell in the shower. ET scan of the brain and C-spine showed no acute osseous lesions or fractures. No acute intracranial abnormality. His chest x-ray shows no acute pulmonary process. Bilateral shoulder x-rays reveal evidence of an old fracture in the left humeral neck. Degenerative changes. No acute fracture. This patient also stated he was coughing up blood clots. Initial hemoglobin 10.6. Current hemoglobin 9.4. There is concern regarding active GI bleeding and he was admitted to the intensive care unit for the same. He is seen today in consultation. He is currently awake and alert in no acute distress. He denies loss of consciousness or syncopal episodes. He did trip and fall into the shower. No shortness of breath, cough or congestion. He is currently nauseated and has the hiccups. He denies having been drinking however his alcohol level is currently 31. White count 6.4. Creatinine 0.61. Potassium 4.2. Magnesium 1.3. Troponin negative 1. AST 91. He has been placed in the CIWA protocol. He is maintaining O2 s aturations in the mid 90s on 2 L/m per nasal cannula. The pressure stable. He is tachycardic in the 120s. Sinus tachycardia. His last EGD was 11/02/2018 that showed evidence of severe LA grade D reflux esophagitis and diffuse antral gastritis. No evidence of esophageal varices at that time. Patient was reevaluated today on 03/12/2019, remains in the ICU, hemodynamically stable, patient presented with upper GI bleeding, acute alcohol intoxication, and considering his history of alcoholism, it was felt that the patient may have alcohol withdrawal. He is on the CIWA protocol, he is also on thiamine, patient is also on Protonix. No major issues over the last 24 hours, he did require some Ativan overnight and early this morning. Patient seems to be calm today, in no form of distress, seen by gastroenterology and I believe he is scheduled to undergo EGD tomorrow. Hemoglobin this morning is 9.9, unchanged since admission, electrolytes and renal profile are normal. Did not require any blood transfusion. Patient had previous endoscopy in October of 2018, and it showed mostly esophagitis and antral gastritis, there was no evidence of esophageal varices at the time. Objective - Vital Signs Vital signs: Vital Signs Temp 98.3 F 03/12/19 08:00 Pulse 107 H 03/12/19 11:00 Resp 12 03/12/19 11:00 BP 119/79 03/12/19 11:00 Pulse Ox 96 03/12/19 11:00 Intake & Output 03/11/19 03/12/19 03/12/19 18:59 06:59 18:59 Intake Total 400 1200 600 Output Total 1451 2076 700 Balance -1051 -876 -100 Weight 68.039 kg 78.4 kg Intake: IV 400 1200 600 Magnesium Sulfate-D5w Pmx 300 1 gm In Dextrose/Water 1 100ml.bag @ 100 mls/hr IVPB ONCE ONE Rx#: [id number] Sodium Chloride 0.9% 1, 400 1200 300 000 ml @ 100 mls/hr IV . Q10H STA Rx#:[id number] Output: Urine 1450 2075 700 Stool 1 1 Other: Voiding Method Urinal Urinal # Voids 1 # Bowel Movements 1 - Exam Physical Exam: Revealed a 63-year-old white male, pleasant, in no distress. Head: Atraumatic, normocephalic. HEENT:[Neck is supple.] [No neck masses.] [No thyromegaly.] [No JVD.] PERRLA, EOMI, no icterus, moist mucous membranes. Chest: Symmetrical chest expansion. [Clear throughout, no crackles, no rhonchi, no wheezes.] Cardiac Exam: [Normal S1 and S2, no S3 gallop, no murmur.] Abdomen: [Soft, nontender, no megaly, no rebound, no guarding, normal bowel sounds.] Extremities: [No clubbing, no edema, no cyanosis.] Good pulses bilaterally. Neurological Exam: [No focal neurologic deficit.] Alert oriented 3. Psychiatric: Normal mood affect and normal mental status examination. Skin: No rashes, Lymphatics: No lymphadenopathy. Musculoskeletal good range of motion, no limitations, good muscle strength bilaterally. - Labs CBC & Chem 7: 03/12/19 04:24 03/12/19 04:24 Labs: Abnormal Lab Results - Last 24 Hours (Table) 03/11/19 03/11/19 03/11/19 Range/Units 12:50 18:22 23:56 RBC 3.35 L 3.52 L 3.36 L (4.30-5.90) m/uL Hgb 9.4 L 9.8 L 9.3 L (13.0-17.5) gm/dL Hct 29.3 L 31.6 L 29.4 L (39.0-53.0) % RDW 18.0 H 17.8 H 17.7 H (11.5-15.5) % Plt Count 144 L (150-450) k/uL Lymphocytes # 0.7 L (1.0-4.8) k/uL Sodium (137-145) mmol/L BUN (9-20) mg/dL Creatinine (0.66-1.25) mg/dL Glucose (74-99) mg/dL Magnesium (1.6-2.3) mg/dL 03/12/19 03/12/19 Range/Units 04:24 04:24 RBC 3.60 L (4.30-5.90) m/uL Hgb 9.9 L (13.0-17.5) gm/dL Hct 31.6 L (39.0-53.0) % RDW 17.6 H (11.5-15.5) % Plt Count 148 L (150-450) k/uL Lymphocytes # (1.0-4.8) k/uL Sodium 135 L (137-145) mmol/L BUN 5 L (9-20) mg/dL Creatinine 0.54 L (0.66-1.25) mg/dL Glucose 139 H (74-99) mg/dL Magnesium 1.3 L (1.6-2.3) mg/dL Assessment and Plan Assessment: #1 Acute GI bleed, suspect upper, in a patient with a known history of LAD grade D reflux esophagitis on EGD October 2018. Stable since admission, hemoglobin today is 9.9, did not require any blood transfusion. #2 Skeletal pain secondary to fall. #3 Recent hospitalization following left humeral fracture. Had been discharged to [facility]. #4 History of heavy alcohol abuse with alcoholic liver disease/cirrhosis. EtOH level 31. On admission #5 Hypertension. #6 Hyperlipidemia. #7 Diabetes mellitus. #8 Remote history of pulmonary embolism. #9 History of seizures as a child. Recommendation: Continue to monitor the patient in the ICU, continued Protonix, continue alcohol withdrawal protocol. Continue thiamine, continue IV fluids, continue to monitor hemoglobin serially, possible EGD tomorrow, and based on EGD findings, decision will be made regarding possibly transfer out of the ICU to a regular medical floor. We'll continue to follow up Time with Patient: Less than 30
--- NOTE | 2019-03-12 12:17 | CONS ---
CONSULTATION DATE OF DICTATION: 03/12/2019. REQUESTING PHYSICIAN: Dr. oYon Phillips. REASON FOR CONSULTATION: Acute upper gastrointestinal bleed. HISTORY OF PRESENT ILLNESS: The patient is a 63-year-old pleasant white male with history of heavy alcohol abuse, who states that he quit drinking about 3 months ago, was admitted to the hospital after having a fall in his bathroom. He hit his head and his shoulder and is not sure if he had loss of consciousness. He was brought into the emergency room by his nephew. In the ER, had 2 episodes of coffee-grounds emesis. There was a moderate amount and hence he was admitted to the intensive care unit. Since being in ICU, he did not have any further episodes of emesis. He does complain of epigastric discomfort. Reports he had small amount of clear emesis this morning. He denies any black tarry stools. The patient was admitted to the hospital about a month ago for acute upper GI bleed. In fact, he had an upper endoscopy done in November of this year by Dr. Hicks which revealed severe LA grade D reflux esophagitis. He has been maintained on Prilosec 20 mg twice daily since then. He did have an esophageal variceal bleeding about a year and a half ago requiring banding sessions. At the time of admission to the hospital, his hemoglobin was 9.2 g/dL and this morning he remains stable. PAST MEDICAL HISTORY: Significant for heavy alcoholism, asthma, COPD, history of CVA in the past, diabetes mellitus, atrial fibrillation, hyperlipidemia, hypertension, and history of PE in the past. PAST SURGICAL HISTORY: Appendectomy, cholecystectomy, multiple EGDs last one in November of 2018. SOCIAL HISTORY: No smoking, heavy alcohol use in the past. He states that he quit about 3 months ago. Alcohol level during this admission was 30. MEDICATIONS: Include Catapres, iron sulfate, Norvasc, Glucophage, Carafate, magnesium oxide, Protonix, multivitamin, Symbicort, vitamin B1, Tylenol, Stebbins, Ativan. ALLERGIES: ALLERGIES TO LISINOPRIL, LATEX, TAPE. FAMILY HISTORY: Father had pneumonia which caused his and mother had COPD, CVA. REVIEW OF SYSTEMS: CARDIOPULMONARY: No chest pain, shortness of breath. GENITOURINARY: No dysuria or hematuria. MUSCULOSKELETAL: Unremarkable. SKIN unremarkable. ENDOCRINE unremarkable. PSYCHIATRIC unremarkable. NEUROLOGY unremarkable. ENT/vision unremarkable. MUSCULOSKELETAL: Left shoulder pain from injury. ENT/vision unremarkable. CONSTITUTIONAL: No recent weight loss. No fever, chills, night sweats. PHYSICAL EXAMINATION: He appears comfortable. Blood pressure 120/82, pulse rate 122, temperature 98.3. HEENT examination unremarkable. Conjunctivae pink. Sclerae anicteric. Oral cavity no lesions. NECK: No JVD or lymph node enlargement. CHEST was clear to auscultation. HEART: Regular rate and rhythm. ABDOMEN: Soft. There was mild tenderness in the epigastric area. Bowel sounds are positive. EXTREMITIES: No pedal edema. NEUROLOGICAL: He is alert and oriented x3. No focal deficits. LABS: Labs done at the time of admission to the hospital: WBC is 3.9, hemoglobin 9.4, platelets 162. This morning today, platelets are 148, hemoglobin 9.9, WBC 3.9. Serum alcohol level was 31, BUN 8, creatinine 0.61. ALT and AST are 91 and 53 respectively. T-bilirubin 0.8, alkaline phosphatase 235. IMPRESSION: 1. Acute upper gastrointestinal bleed in this patient with history of heavy alcohol abuse and possible underlying alcoholic cirrhosis of the liver, he had a few episodes of coffee-ground emesis, but since then has been hemodynamically stable since being in the hospital. No further episodes of bleeding. Hemoglobin remains stable at 10.6 g/dL. As mentioned earlier, the last upper endoscopy in November of 2018 showed evidence of severe reflux esophagitis. The patient is maintained on Prilosec 20 mg twice daily. He did have an esophageal variceal bleed about a year and half ago requiring variceal ligation. 2. Heavy alcohol abuse. The patient states that he quit drinking but his alcohol level was 31 at the time of admission to the hospital. 3. Epigastric pain. Rule out peptic ulcer disease. 4. Atrial fibrillation, presently on no anticoagulation. 5. History of diabetes mellitus and transient ischemic attack in the past. RECOMMENDATIONS: 1. Continue with IV Protonix 40 mg q.12 hours. 2. Start on clear liquid diet. 3. CBC every 12 hours. 4. We will proceed with an upper endoscopy tomorrow. I discussed with the patient, risks, benefits and complications of the procedure and he is agreeable to it. Thank you for this consultation. We will continue to follow the patient closely during his hospital stay. MMODL / IJN: [id number] /
[2019-03-12 16:50] LABS: Glucose,Whole Blood 119 mg/dL (75-99)
[2019-03-13] MEDS: LORazepam 2 MG/ML INJ IV PRN ×2 (00:30→21:09)
[2019-03-13] MEDS: SODIUM CHLORIDE 0.9% 1,000 ML IV SCH ×3 (00:32→20:03)
[2019-03-13] MEDS: HYDROmorphone 0.5 MG/0.5 ML SYRINGE IVP PRN ×3 (04:04→20:12)
[2019-03-13 04:35] LABS: Anisocytosis Slight; Basophils % (A) 0 %; Eosinophils # (A) 0.2 k/uL (0-0.7); Eosinophils % (A) 4 %; HCT 28.6 % (39.0-53.0); HGB 8.8 gm/dL (13.0-17.5); Hypochromasia Marked; Lymphocytes # (A) 1.2 k/uL (1.0-4.8); Lymphocytes % (A) 31 %; MCH 27.3 pg (25.0-35.0); MCHC 30.6 g/dL (31.0-37.0); MCV 89.1 fL (80.0-100.0); Mean Platelet Volume 6.3; Monocytes # (A) 0.2 k/uL (0-1.0); Monocytes % (A) 6 %; Neutrophils # (A) 2.3 k/uL (1.3-7.7); Neutrophils % (A) 57 %; Platelet Count 128 k/uL (150-450); RBC 3.21 m/uL (4.30-5.90); RDW 17.5 % (11.5-15.5); WBC 4.1 k/uL (3.8-10.6)
[2019-03-13 04:45] LABS: African American GFR (CKD) >90 (>60 ml/min/1.73 sqM); Anion Gap 6 mmol/L; Blood Urea Nitrogen 7 mg/dL (9-20); Calcium 8.2 mg/dL (8.4-10.2); Carbon Dioxide 26 mmol/L (22-30); Chloride 104 mmol/L (98-107); Glucose 95 mg/dL (74-99); Magnesium 1.5 mg/dL (1.6-2.3); Non-African American GFR(CKD) >90 (>60 ml/min/1.73 sqM); Potassium 3.6 mmol/L (3.5-5.1); Sodium 136 mmol/L (137-145)
[2019-03-13] MEDS ORDERED: Magnesium Replacement Protocol 1 EACH MISC MISCELLANE PRN (05:43)
[2019-03-13] MEDS: MAGNESIUM SULFATE-D5W PMX 1 GM in DEXTROSE/WATER 1 100ML.BAG IVPB SCH ×2 (06:17→07:48)
[2019-03-13] MEDS: THIAMINE 100 MG TAB PO SCH ×2 (07:05→18:18)
[2019-03-13] MEDS: PANTOPRAZOLE 40 MG/10 ML VIAL IV SCH ×2 (08:26→20:03)
--- NOTE | 2019-03-13 09:38 | P.PN ---
Subjective Progress Note Date: 03/13/19 Principal diagnosis: Acute upper GI bleeding, impending alcohol withdrawal This is a very pleasant 63-year-old gentleman who follows with Yoon Phillips as his primary care physician. He has a history of atrial fibrillation, CVA/TIA, diabetes mellitus, GERD, GI bleed, hyperlipidemia, hypertension, pulmonary embolism 2 in the right lung, chronic alcoholic cirrhosis with portal hypertension and previous history of upper and lower GI bleeding, esophageal varices, MRSA infections, falls with recent hospitalization with a broken left humerus area he was discharged to a subacute rehabilitation center on 02/08/2019. He had been back at home in his apartment where he states he tripped over a tile in the bathroom and fell in the shower. ET scan of the brain and C-spine showed no acute osseous lesions or fractures. No acute intracranial abnormality. His chest x-ray shows no acute pulmonary process. Bilateral shoulder x-rays reveal evidence of an old fracture in the left humeral neck. Degenerative changes. No acute fracture. This patient also stated he was coughing up blood clots. Initial hemoglobin 10.6. Current hemoglobin 9.4. There is concern regarding active GI bleeding and he was admitted to the intensive care unit for the same. He is seen today in consultation. He is currently awake and alert in no acute distress. He denies loss of consciousness or syncopal episodes. He did trip and fall into the shower. No shortness of breath, cough or congestion. He is currently nauseated and has the hiccups. He denies having been drinking however his alcohol level is currently 31. White count 6.4. Creatinine 0.61. Potassium 4.2. Magnesium 1.3. Troponin negative 1. AST 91. He has been placed in the CIWA protocol. He is maintaining O2 saturations in the mid 90s on 2 L/m per nasal cannula. The pressure stable. He is tachycardic in the 120s. Sinus tachycardia. His last EGD was 11/02/2018 that showed evidence of severe LA grade D reflux esophagitis and diffuse antral gastritis. No evidence of esophageal varices at that time. Patient was reevaluated today on 03/12/2019, remains in the ICU, hemodynamically stable, patient presented with upper GI bleeding, acute alcohol intoxication, and considering his history of alcoholism, it was felt that the patient may have alcohol withdrawal. He is on the CIWA protocol, he is also on thiamine, patient is also on Protonix. No major issues over the last 24 hours, he did require some Ativan overnight and early this morning. Patient seems to be calm today, in no form of distress, seen by gastroenterology and I believe he is scheduled to undergo EGD tomorrow. Hemoglobin this morning is 9.9, unchanged since admission, electrolytes and renal profile are normal. Did not require any blood transfusion. Patient had previous endoscopy in October of 2018, and it showed mostly esophagitis and antral gastritis, there was no evidence of esophageal varices at the time. On 03/05/2017 patient seen in follow-up in the intensive care unit, he is awake and alert, in no acute distress, oriented 3, no obvious signs of delirium tremens, vital signs are stable, he is on 2 L of oxygen with a pulse ox of 97%, 0.9 normal saline at a rate of 100 ML per hour, no signs of active bleeding, this morning's hemoglobin is 8.8, and has not required blood transfusions since admission. No couplets of difficulty breathing, no complaints of chest pain, he just states his abdomen feels like it's in knots, but no acute distress, abdomen is soft. No tachycardia. He remains on CIWA protocol, he is on PPI therapy with Protonix 40 mg twice daily. No acute events overnight, patient is scheduled for EGD this afternoon for upper GI bleeding and history of varices. Objective - Vital Signs Vital signs: Vital Signs Temp 98.2 F 03/13/19 08:00 Pulse 105 H 03/13/19 09:00 Resp 20 03/13/19 09:00 BP 118/84 03/13/19 09:00 Pulse Ox 97 03/13/19 09:00 Intake & Output 03/12/19 03/13/19 03/13/19 18:59 06:59 18:59 Intake Total 1400 1200 300 Output Total 2300 525 1400 Balance -900 675 -1100 Weight 74.7 kg Intake: IV 1400 800 200 0.9 Normal Saline 700 Magnesium Sulfate-D5w Pmx 300 1 gm In Dextrose/Water 1 100ml.bag @ 100 mls/hr IVPB ONCE ONE Rx#: [id number] Sodium Chloride 0.9% 1, 200 000 ml @ 100 mls/hr IV . Q10H TANYA Rx#:[id number] Sodium Chloride 0.9% 1, 1100 100 000 ml @ 100 mls/hr IV . Q10H STA Rx#:[id number] Intake, IV Titration 400 100 Amount Sodium Chloride 0.9% 1, 400 100 000 ml @ 100 mls/hr IV . Q10H TANYA Rx#:[id number] Output: Urine 2300 525 1400 Other: Voiding Method Urinal Urinal Urinal # Voids 1 1 # Bowel Movements 1 # Emeses 1 - Exam GENERAL EXAM: Alert, very pleasant, 63-year-old white male on 2 L of oxygen, with a pulse ox of 97%, comfortable in no apparent distress. HEAD: Normocephalic/atraumatic. EYES: Normal reaction of pupils, equal size. Conjunctiva pink, sclera white. NOSE: Clear with pink turbinates. THROAT: No erythema or exudates. NECK: No masses, no JVD, no thyroid enlargement, no adenopathy. CHEST: No chest wall deformity. Symmetrical expansion. LUNGS: Equal air entry with no crackles, wheeze, rhonchi or dullness. CVS: Regular rate and rhythm, normal S1 and S2, no gallops, no murmurs, no rubs ABDOMEN: Soft, nontender. No hepatosplenomegaly, normal bowel sounds, no guarding or rigidity. EXTREMITIES: No clubbing, no edema, no cyanosis, 2+ pulses and upper and lower extremities. Left arm is in a sling MUSCULOSKELETAL: Muscle strength and tone normal. SPINE: No scoliosis or deformity SKIN: No rashes CENTRAL NERVOUS SYSTEM: Alert and oriented -3. No focal deficits, tone is normal in all 4 extremities. PSYCHIATRIC: Alert and oriented -3. Appropriate affect. Intact judgment and insight. - Labs CBC & Chem 7: 03/13/19 03:57 03/13/19 04:01 Labs: Abnormal Lab Results - Last 24 Hours (Table) 03/12/19 03/13/19 03/13/19 Range/Units 16:49 03:57 04:01 RBC 3.21 L (4.30-5.90) m/uL Hgb 8.8 L (13.0-17.5) gm/dL Hct 28.6 L (39.0-53.0) % MCHC 30.6 L (31.0-37.0) g/dL RDW 17.5 H (11.5-15.5) % Plt Count 128 L (150-450) k/uL Sodium 136 L (137-145) mmol/L BUN 7 L (9-20) mg/dL Creatinine 0.58 L (0.66-1.25) mg/dL POC Glucose (mg/dL) 119 H (75-99) mg/dL Calcium 8.2 L (8.4-10.2) mg/dL Magnesium 1.5 L (1.6-2.3) mg/dL Microbiology - Last 24 Hours (Table) 03/11/19 12:34 Blood Culture - Preliminary Blood No Growth after 24 hours Assessment and Plan Plan: Assessment: #1 Acute GI bleed, suspect upper, in a patient with a known history of LAD grade D reflux esophagitis on EGD October 2018. Stable since admission, hemoglobin today is 9.9, did not require any blood transfusion. #2 Skeletal pain secondary to fall. #3 Recent hospitalization following left humeral fracture. Had been discharged to [facility]. #4 History of heavy alcohol abuse with alcoholic liver disease/cirrhosis. EtOH level 31. On admission #5 Hypertension. #6 Hyperlipidemia. #7 Diabetes mellitus. #8 Remote history of pulmonary embolism. #9 History of seizures as a child. Plan: Continue current medical treatment, continue PPI therapy, IV hydration, patient has not required blood this admission, he is hemodynamically stable, no tach ycardia, currently no active bleeding, awaiting EGD this afternoon, nothing by mouth since midnight, continue monitoring for signs of delirium tremens. She can be downgraded to medical surgical floor without telemetry after the EGD he remains stable I performed a history & physical examination of the patient and discussed their management with my nurse practitioner, Aline Collins. I reviewed the nurse practitioner's note and agree with the documented findings and plan of care. Lung sounds are positive for clear breath sounds. The findings and the impression was discussed with the patient. I attest to the documentation by the nurse practitioner. Time with Patient: Less than 30
[2019-03-13 11:52] LABS: Glucose,Whole Blood 114 mg/dL (75-99)
[2019-03-13] MEDS ORDERED: PROPOFOL 10 MG/ML 20 ML VIAL IV ONE (12:33)
[2019-03-13] MEDS ORDERED: LIDOCAINE 1% INJ 10MG/ML (20 ML MDV) ONE (12:33)
[2019-03-13] MEDS ORDERED: IV FLUID CONTINUATION 1,000 ML IV ONE ×2 (12:39)
--- NOTE | 2019-03-13 12:51 | P.PCN ---
Date of Procedure: 03/13/19 Procedure(s) Performed: BRIEF HISTORY: Patient is a 61-year-old, pleasant, white male, admitted to the hospital with acute upper GI bleed. He had 2 episodes of coffee-ground emesis. Last hemoglobin was 9.5 g/dL. He has history of liver cirrhosis with esophageal variceal bleeding With a year ago requiring variceal ligation. He is scheduled for an upper endoscopy to evaluate further.. PROCEDURE PERFORMED: Esophagogastroduodenoscopy with variceal ligation. PREOPERATIVE DIAGNOSIS: Acute upper GI bleed. IV sedation per anesthesia. PROCEDURE: After informed consent was obtained, the patient was brought into the endoscopy unit. IV sedation was administered by Anesthesia under continuous monitoring. Initially the Olympus GIF-140 video endoscope was inserted into the mouth. Esophagus intubated without any difficulty. It was gradually advanced into the stomach and duodenum and carefully examined. The bulb and the second part of the duodenum appeared normal. The scope at this time was withdrawn to the stomach, adequately insufflated with air, and upon careful examination, mucosa of the antrum, body, cardia and the fundus appeared normal. The scope was then withdrawn into the esophagus. The GE junction was located at 39 cm from the incisors. There was small mid/distal esophageal varices seen with no evidence of active bleeding. At this time the scope was removed. The esophageal variceal ligation equipment was introduced onto the tip of the scope. The esophagus reintubated without any difficulty. It was gradually advanced into the distal esophagus. Using suction total of 3 bands were deployed in the distal esophagus in a spiral fashion. The rest of esophagus appeared normal. Patient tolerated the procedure well. IMPRESSION: 1. Small to large mid/distal esophageal varices with no active bleeding status post variceal ligation as described above.. RECOMMENDATIONS: The findings of this examination were discussed with the patient. He'll be started on a soft diet. Repeat CBC in the morning. Continue Protonix 40 mg every 12 hours..
[2019-03-13] MEDS: ONDANSETRON 4 MG/2 ML VIAL IVP PRN ×2 (13:20→20:12)
--- NOTE | 2019-03-13 14:58 | P.PN ---
Subjective Progress Note Date: 03/13/19 This is a 53-year-old gentleman admitted with acute GI bleed in a patient with history of severe reflux esophagitis, alcohol abuse, esophageal varices and multiple other medical issues. He states he was monitoring compared to admission, and alcohol level XXXI on admission. Maintained on IV fluid hydration , PPI and seawall protocol. Evaluated by GI, scattered for EGD today. Telemetry sinus rhythm. No further bleeding reported. Complains of mild epigastric pain, hiccups. Denies chest pain, palpitations or shortness of breath. Hemoglobin 8.8. No DTs. Mild tachycardia,VSS, maintaining O2 sats in the high 90s on 2 L nasal cannula. Magnesium 1.5, receiving supplements. Objective - Vital Signs Vital signs: Vital Signs Temp 98.2 F 03/13/19 08:00 Pulse 121 H 03/13/19 10:00 Resp 15 03/13/19 10:00 BP 126/87 03/13/19 10:00 Pulse Ox 95 03/13/19 10:00 Intake & Output 03/12/19 03/13/19 03/13/19 18:59 06:59 18:59 Intake Total 1400 1200 400 Output Total 2300 525 1400 Balance -900 675 -1000 Weight 74.7 kg Intake: IV 1400 800 300 0.9 Normal Saline 700 Magnesium Sulfate-D5w Pmx 300 1 gm In Dextrose/Water 1 100ml.bag @ 100 mls/hr IVPB ONCE ONE Rx#: [id number] Sodium Chloride 0.9% 1, 300 000 ml @ 100 mls/hr IV . Q10H TANYA Rx#:[id number] Sodium Chloride 0.9% 1, 1100 100 000 ml @ 100 mls/hr IV . Q10H STA Rx#:[id number] Intake, IV Titration 400 100 Amount Sodium Chloride 0.9% 1, 400 100 000 ml @ 100 mls/hr IV . Q10H TANYA Rx#:[id number] Output: Urine 2300 525 1400 Other: Voiding Method Urinal Urinal Urinal # Voids 1 1 # Bowel Movements 1 1 # Emeses 1 - Exam PHYSICAL EXAM: VITAL SIGNS: [As above] GENERAL: When up in bed, no acute distress HEENT: Conjunctivae normal. eyes normal. Oral mucosa dry NECK: No JVD. No thyroid enlargement. No LNs. Left arm sling CARDIOVASCULAR: S1, S2 regular.. No murmur RESPIRATION: Breath sounds diminished in the bases. No rhonchi or crackles. No bronchial breathing. ABDOMEN: Soft, nontender . No guarding. no masses palpable. No ascites, No hepatosplenomegaly.Bowel sounds heard. LEGS: No edema. no swelling PSYCHIATRY: Alert and oriented X3, mood and affect normal. NERVOUS SYSTEM: Cranial N 2-12 grossly normal. Moves all 4 limbs. No focal d eficits. Strength and sensation grossly intact.. Skin: no rash , no petechiae - Labs CBC & Chem 7: 03/13/19 03:57 03/13/19 04:01 Labs: Abnormal Lab Results - Last 24 Hours (Table) 03/12/19 03/13/19 03/13/19 Range/Units 16:49 03:57 04:01 RBC 3.21 L (4.30-5.90) m/uL Hgb 8.8 L (13.0-17.5) gm/dL Hct 28.6 L (39.0-53.0) % MCHC 30.6 L (31.0-37.0) g/dL RDW 17.5 H (11.5-15.5) % Plt Count 128 L (150-450) k/uL Sodium 136 L (137-145) mmol/L BUN 7 L (9-20) mg/dL Creatinine 0.58 L (0.66-1.25) mg/dL POC Glucose (mg/dL) 119 H (75-99) mg/dL Calcium 8.2 L (8.4-10.2) mg/dL Magnesium 1.5 L (1.6-2.3) mg/dL 03/13/19 Range/Units 11:51 RBC (4.30-5.90) m/uL Hgb (13.0-17.5) gm/dL Hct (39.0-53.0) % MCHC (31.0-37.0) g/dL RDW (11.5-15.5) % Plt Count (150-450) k/uL Sodium (137-145) mmol/L BUN (9-20) mg/dL Creatinine (0.66-1.25) mg/dL POC Glucose (mg/dL) 114 H (75-99) mg/dL Calcium (8.4-10.2) mg/dL Magnesium (1.6-2.3) mg/dL Microbiology - Last 24 Hours (Table) 03/11/19 12:34 Blood Culture - Preliminary Blood No Growth after 24 hours Assessment and Plan Assessment: -Acute GI bleed, suspect upper the patient with history of significant alcohol abuse, esophageal varices, severe reflux esophagitis. Rule out peptic ulcer disease, rule out esophageal varices. -Alcohol dependence, with alcoholic cirrhosis without ascites -History of esophageal varices -Recent left humerus fracture -Chronic atrial fibrillation -COPD, stable -Gastroesophageal reflux disease -Diabetes mellitus -Hypertension -Hyperlipidemia -History of seizures -Hypomagnesemia Plan: Continue on current medication regime ,monitoring and symptomatic treatment. Magnesium supplementation in progress. Nothing by mouth, scheduled for EGD today. Cleared by gang drill operator for transfer out of ICU. Thorazine added to med regime for checkups. Maintain CIWA protocol monitoring of DTs. Close monitoring of CBC, electrolytes, renal function with repeat labs ordered for a.m. The impression and plan of care has been dictated as directed. : I performed a history and examination of this patient, discussed the same with the dictator. I agree with the dictator's note ,documented as a scribe. Any additional findings or plans will be noted.
[2019-03-13] MEDS: chlorproMAZINE 25 MG TAB PO SCH ×2 (15:05→21:09)
[2019-03-13] MEDS ORDERED: PROMETHAZINE INJ 12.5 MG in SODIUM CHLORIDE 0.9% 50 ML IVPB STA (22:37)
[2019-03-13] MEDS ORDERED: MORPHINE SULFATE 2 MG/ML SYRINGE IVP STA (22:38)
[2019-03-13] MEDS ORDERED: SODIUM CHLORIDE 0.9% 500 ML 500 ML IV ONE (22:39)
[2019-03-13] MEDS: SUCRALFATE 1 GM TAB PO SCH (22:49)
[2019-03-14] MEDS: MORPHINE SULFATE 4 MG/ML SYRINGE IV PRN (04:37)
[2019-03-14] MEDS: SODIUM CHLORIDE 0.9% 1,000 ML IV SCH ×3 (04:39→22:24)
[2019-03-14] MEDS ORDERED: METOPROLOL SUCCINATE (ER) 25 MG TAB.ER.24H PO STA (06:29)
[2019-03-14 07:57] LABS: Anisocytosis Slight; Basophils % (A) 0 %; Eosinophils # (A) 0.1 k/uL (0-0.7); Eosinophils % (A) 1 %; HCT 27.1 % (39.0-53.0); HGB 8.5 gm/dL (13.0-17.5); Hypochromasia Moderate; Lymphocytes # (A) 1.2 k/uL (1.0-4.8); Lymphocytes % (A) 14 %; MCH 27.6 pg (25.0-35.0); MCHC 31.5 g/dL (31.0-37.0); MCV 87.7 fL (80.0-100.0); Mean Platelet Volume 6.2; Monocytes # (A) 0.3 k/uL (0-1.0); Monocytes % (A) 3 %; Neutrophils # (A) 7.1 k/uL (1.3-7.7); Neutrophils % (A) 81 %; Platelet Count 124 k/uL (150-450); RBC 3.09 m/uL (4.30-5.90); RDW 17.7 % (11.5-15.5); WBC 8.8 k/uL (3.8-10.6)
[2019-03-14 07:59] LABS: African American GFR (CKD) >90 (>60 ml/min/1.73 sqM); Anion Gap 9 mmol/L; Blood Urea Nitrogen 7 mg/dL (9-20); Carbon Dioxide 24 mmol/L (22-30); Chloride 105 mmol/L (98-107); Glucose 105 mg/dL (74-99); Magnesium 1.5 mg/dL (1.6-2.3); Non-African American GFR(CKD) >90 (>60 ml/min/1.73 sqM); Potassium 3.6 mmol/L (3.5-5.1); Sodium 138 mmol/L (137-145)
[2019-03-14] MEDS: HYDROmorphone 0.5 MG/0.5 ML SYRINGE IVP PRN ×3 (08:39→20:15)
[2019-03-14] MEDS: THIAMINE 100 MG TAB PO SCH ×2 (09:53→17:39)
[2019-03-14] MEDS: chlorproMAZINE 25 MG TAB PO SCH ×3 (09:54→21:49)
[2019-03-14] MEDS: PANTOPRAZOLE 40 MG/10 ML VIAL IV SCH ×2 (09:55→21:49)
[2019-03-14] MEDS: SUCRALFATE 1 GM TAB PO SCH ×4 (09:59→21:49)
[2019-03-14] MEDS: MAGNESIUM SULFATE-D5W PMX 1 GM in DEXTROSE/WATER 1 100ML.BAG IVPB SCH ×2 (10:38→12:15)
--- NOTE | 2019-03-14 14:22 | P.PN ---
Subjective Progress Note Date: 03/14/19 This is a 53-year-old gentleman admitted with acute GI bleed in a patient with history of severe reflux esophagitis, alcohol abuse, esophageal varices and multiple other medical issues. He states he was monitoring compared to admission, and alcohol level XXXI on admission. Maintained on IV fluid hydration , PPI and seawall protocol. Evaluated by GI, scattered for EGD today. Telemetry sinus rhythm. No further bleeding reported. Complains of mild epigastric pain, hiccups. Denies chest pain, palpitations or shortness of breath. Hemoglobin 8.8. No DTs. Mild tachycardia,VSS, maintaining O2 sats in the high 90s on 2 L nasal cannula. Magnesium 1.5, receiving supplements. 03/14/2019 status post EGD reporting small to large mid/distal esophageal varices with no active bleeding status post variceal ligation. Hemoglobin stable, 8.5 with no bleeding reported .Tolerating soft diet, with no nausea or vomiting. Complains of mid epigastric /diffuse abdominal pain with relief from Carafate. Iron levels stable. Complains of stiff neck and shoulders, sling on left arm maintained. IV fluids at 100 MLS per hour. Receiving magnesium supplements for mag of 1.5. Tachycardic, Continues on CIWA protocol. Objective - Vital Signs Vital signs: Vital Signs Temp 98.9 F 03/14/19 08:16 Pulse 93 03/14/19 08:16 Resp 18 03/14/19 08:16 BP 110/73 03/14/19 08:16 Pulse Ox 96 03/14/19 08:16 Intake & Output 03/13/19 03/14/19 03/14/19 18:59 06:59 18:59 Intake Total 1000 2180 Output Total 2400 600 Balance -1400 1580 Intake: IV 900 800 Sodium Chloride 0.9% 1, 700 800 000 ml @ 100 mls/hr IV . Q10H TANYA Rx#:[id number] Intake, IV Titration 100 550 Amount Promethazine Inj 12.5 mg 50 In Sodium Chloride 0.9% 50 ml @ 200 mls/hr IVPB ONCE STA Rx#:[id number] Sodium Chloride 0.9% 1, 100 000 ml @ 100 mls/hr IV . Q10H TANYA Rx#:[id number] Sodium Chloride 0.9% 500 500 ml 500 ml @ 999 mls/hr IV .Q31M ONE Rx#:[id number] Oral 830 Output: Urine 2400 600 Other: Voiding Method Urinal Urinal # Voids 1 2 # Bowel Movements 1 1 - Exam PHYSICAL EXAM: VITAL SIGNS: [As above] GENERAL: Sitting up in bed, no acute distress HEENT: Conjunctivae normal. eyes normal. Oral mucosa moist NECK: No JVD. No thyroid enlargement. No LNs. Left arm sling CARDIOVASCULAR: S1, S2 regular.. No murmur RESPIRATION: Breath sounds diminished in the bases. No rhonchi or crackles. No bronchial breathing. ABDOMEN: Soft, nondistended. Mid epigastric, diffuse abdominal tenderness . No guarding. no masses palpable. Bowel sounds heard. LEGS: No edema. no swelling PSYCHIATRY: Alert and oriented X3, mood and affect normal. NERVOUS SYSTEM: Cranial N 2-12 grossly normal. Moves all 4 limbs. No focal deficits. Strength and sensation grossly intact.. Skin: no rash , no petechiae - Labs CBC & Chem 7: 03/14/19 07:22 03/14/19 07:22 Labs: Abnormal Lab Results - Last 24 Hours (Table) 03/14/19 03/14/19 Range/Units 07:22 07:22 RBC 3.09 L (4.30-5.90) m/uL Hgb 8.5 L (13.0-17.5) gm/dL Hct 27.1 L (39.0-53.0) % RDW 17.7 H (11.5-15.5) % Plt Count 124 L (150-450) k/uL BUN 7 L (9-20) mg/dL Creatinine 0.63 L (0.66-1.25) mg/dL Glucose 105 H (74-99) mg/dL Calcium 8.0 L (8.4-10.2) mg/dL Magnesium 1.5 L (1.6-2.3) mg/dL Microbiology - Last 24 Hours (Table) 03/11/19 12:34 Blood Culture - Preliminary Blood No Growth after 48 hours Assessment and Plan Assessment: -Acute GI bleed, suspect upper the patient with history of significant alcohol abuse, esophageal varices, severe reflux esophagitis. Status post EGD reporting small to large mid/distal esophageal varices with no active bleeding status post variceal ligation. -Alcohol dependence, with alcoholic cirrhosis without ascites -History of esophageal varices -Recent left humerus fracture -Chronic atrial fibrillation -COPD, stable -Gastroesophageal reflux disease -Diabetes mellitus -Hypertension -Hyperlipidemia -History of seizures -Hypomagnesemia Plan: Continue on current medication regime ,monitoring and symptomatic treatment. Continue on CIWA protocol,IV fluid hydration, PPI every 12 hours. Up in chair for all meals -soft low fat diet.increase ambulation as tolerated. Magnesium supplementation in progress. Close monitoring of CBC, electrolytes, renal function with repeat labs ordered for a.m. alcohol cessation discussed including close follow-up in clinic. Discharge planning in progress for possibly tomorrow. The impression and plan of care has been dictated as directed. : I performed a history and examination of this patient, discussed the same with the dictator. I agree with the dictator's note ,documented as a scribe. Any additional findings or plans will be noted.
--- NOTE | 2019-03-14 16:46 | PN ---
PROGRESS NOTE PULMONARY/CRITICAL CARE PROGRESS NOTE: DATE OF SERVICE: 03/14/2019 This is a 63-year-old male, well known to us. He has a history of acute GI bleed from chronic alcohol abuse. He also has severe reflux esophagitis. Anyway, the patient is doing reasonably well. We talked to him a number of times about the importance of cessation of alcohol intake. In addition, he has skeletal pain secondary to multiple falls, a recent left humeral fracture, history of heavy alcohol abuse with alcoholic liver disease and cirrhosis, hypertension, hyperlipidemia, diabetes, remote history of pulmonary embolism, and history of seizure disorder as a child. Anyway, the patient is doing much better. He is not having any additional GI bleeding. His primary problem and complaint is that of diffuse pain. He denies any shortness of breath, chest tightness, wheezing, cough or phlegm production. PHYSICAL EXAMINATION: VITAL SIGNS: Current vital signs are reviewed. Temperature is 99. Heart rate is 90, respiratory rate 18, blood pressure 127/72, mean 90, room-air saturation 96%. GENERAL APPEARANCE: He appears in no acute distress. HEENT: HEENT examination is grossly unremarkable. Mucous membranes are moist. No oral lesions. NECK: Supple. Full range of motion. No adenopathy or thyromegaly. Neck veins are flat. CARDIOVASCULAR: Cardiovascular examination reveals regular rhythm and rate. Heart rate about 90 beats per minute. S1, S2 normal. No murmur. LUNGS: Lungs reveal clear breath sounds. No wheezes, rhonchi or crackles. Breath sounds equal bilaterally. ABDOMEN: Soft. Bowel sounds are heard. EXTREMITIES: Intact. No cyanosis, clubbing or edema. SKIN: Skin reveals multiple areas of ecchymoses and bruises from previous falls. NEUROLOGIC: Neurologic examination is brief but nonfocal. LAB DATA: Reviewed. White count 8.8, hemoglobin 8.5, hematocrit 27.1, platelet count 124,000. Sodium 138, potassium 3.6, chloride 105, CO2 24. Anion gap is 9. BUN and creatinine were 7 and 0.63. Magnesium 1.5. Microbiologic studies are negative. No additional x-rays were done. ASSESSMENT: 1. Acute gastrointestinal bleed, likely upper gastrointestinal source in a patient with a known history of reflux esophagitis. 2. Rule out bleeding esophageal varices. 3. Skeletal pain secondary to fall. 4. Recent hospitalization following a left humeral fracture. 5. History of heavy alcohol abuse with alcoholic liver disease and alcoholic cirrhosis. 6. Hypertension by history. 7. History of hyperlipidemia. 8. Diabetes mellitus. 9. Remote history of pulmonary embolism. 10.History of childhood seizure disorder. PLAN: Currently the patient is doing reasonably well. His hemoglobin is stable. No respiratory issues. We saw him when he was in the ICU. Additional recommendations and suggestions are forthcoming. Prognosis is guarded. We counseled him multiple times about the importance of cessation of alcohol intake. MMODL / IJN: [id number] /
--- NOTE | 2019-03-14 17:34 | PN ---
PROGRESS NOTE DATE OF DISCHARGE: 03/14/2019 This patient is a 63-year-old white male with history of alcoholic liver disease, admitted to the hospital with acute GI bleed. He underwent an upper endoscopy with variceal ligation yesterday. He was noted to have large esophageal varices with no active bleeding. He is doing well. He was transferred to the floor today. He denies any complaints. He had some chest discomfort after variceal ligation. Tolerating diet well. PHYSICAL EXAMINATION: He appears comfortable. No apparent distress. VITAL SIGNS: Stable. Blood pressure is 127/72, pulse rate 119, temperature 99. HEENT examination unremarkable. Conjunctivae pink. Sclerae anicteric. Oral cavity no lesions. NECK: No JVD or lymph node enlargement. CHEST: Clear to auscultation. HEART: Regular rate and rhythm. ABDOMEN: Soft. There was very minimal tenderness in the epigastric area. Bowel sounds are positive. No organomegaly. EXTREMITIES: No pedal edema. SKIN: No rashes. NEUROLOGIC: Alert and oriented x3. No focal deficits. LABS: Labs done today show WBC 8.8, hemoglobin 5.5, platelets 124. Basic metabolic panel is within normal limits. IMPRESSION: 1. Acute upper gastrointestinal bleed, status post esophagogastroduodenoscopy with variceal ligation yesterday which showed evidence of nonbleeding esophageal varices. 2. Alcoholic liver disease with cirrhosis of the liver. 3. Left shoulder injury, gradually improving. RECOMMENDATIONS: 1. Continue with Protonix 40 mg daily. 2. Abstinence from alcohol. 3. Advance diet as tolerated. 4. Repeat labs in the morning. 5. Will follow with you closely. Thank you for this consultation. MMODL / IJN: [id number] /
[2019-03-15 05:09] VITALS: BP 116/67; PULSE 111; RESP 16; TEMP 97.8
[2019-03-15] MEDS: SODIUM CHLORIDE 0.9% 1,000 ML IV SCH ×2 (06:09→13:12)
[2019-03-15] MEDS: HYDROmorphone 0.5 MG/0.5 ML SYRINGE IVP PRN (07:49)
[2019-03-15 07:50] LABS: Anisocytosis Slight; Basophils % (A) 0 %; Eosinophils # (A) 0.2 k/uL (0-0.7); Eosinophils % (A) 2 %; HCT 27.1 % (39.0-53.0); HGB 8.5 gm/dL (13.0-17.5); Hypochromasia Moderate; Lymphocytes % (A) 15 %; MCH 27.7 pg (25.0-35.0); MCHC 31.3 g/dL (31.0-37.0); MCV 88.4 fL (80.0-100.0); Mean Platelet Volume 6.7; Monocytes # (A) 0.4 k/uL (0-1.0); Monocytes % (A) 6 %; Neutrophils # (A) 4.8 k/uL (1.3-7.7); Neutrophils % (A) 75 %; Platelet Count 122 k/uL (150-450); RBC 3.07 m/uL (4.30-5.90); RDW 17.9 % (11.5-15.5); WBC 6.4 k/uL (3.8-10.6)
[2019-03-15] MEDS: THIAMINE 100 MG TAB PO SCH (08:36)
[2019-03-15] MEDS: SUCRALFATE 1 GM TAB PO SCH ×2 (08:36→13:19)
[2019-03-15] MEDS: chlorproMAZINE 25 MG TAB PO SCH (08:37)
[2019-03-15] MEDS: PANTOPRAZOLE 40 MG/10 ML VIAL IV SCH (08:37)
[2019-03-15] MEDS ORDERED: HYDROcodone/APAP 7.5-325MG 1 EACH TAB PO PRN (11:01)
--- NOTE | 2019-03-15 11:13 | P.DS ---
Providers Date of admission: 03/11/19 12:02 Expected date of discharge: 03/15/19 Attending physician: Alexys Marcus MD Consults: 03/11/19 12:13 Consult Physician Stat Consulting Provider: Gabbi Sheehan Consult Reason/Comments: upper gi bleed, varices Do you want consulting provider notified?: Yes 03/11/19 12:26 Consult Physician Stat Consulting Provider: Barry Marcus Consult Reason/Comments: acute upper gi bleed Do you want consulting provider notified?: Already Contacted Primary care physician: Yoon Phillips [facility] Course: Final Diagnoses: -Acute GI bleed, suspect upper the patient with history of significant alcohol abuse, esophageal varices, severe reflux esophagitis. Status post EGD reporting small to large mid/distal esophageal varices with no active bleeding status post variceal ligation. -Alcohol dependence, with alcoholic cirrhosis without ascites -History of esophageal varices -Recent left humerus fracture -Chronic atrial fibrillation -COPD, stable -Gastroesophageal reflux disease -Diabetes mellitus -Hypertension -Hyperlipidemia -History of seizures -Hypomagnesemia Hospital course:This is a 53-year-old gentleman admitted with acute GI bleed in a patient with history of severe reflux esophagitis, alcohol abuse, esophageal varices and multiple other medical issues. He states he was monitoring compared to admission, and alcohol level XXXI on admission. Maintained on IV fluid hydration, PPI and seawall protocol. Evaluated by GI, scattered for EGD today. Telemetry sinus rhythm. No further bleeding reported. Complains of mild epigas tric pain, hiccups. Denies chest pain, palpitations or shortness of breath. Hemoglobin 8.8. No DTs. Mild tachycardia,VSS, maintaining O2 sats in the high 90s on 2 L nasal cannula. Magnesium 1.5, receiving supplements. 03/14/2019 status post EGD reporting small to large mid/distal esophageal varices with no active bleeding status post variceal ligation. Hemoglobin stable, 8.5 with no bleeding reported .Tolerating soft diet, with no nausea or vomiting. Complains of mid epigastric /diffuse abdominal pain with relief from Carafate. Iron levels stable. Complains of stiff neck and shoulders, sling on left arm maintained. IV fluids at 100 MLS per hour. Receiving magnesium supplements for mag of 1.5. Tachycardic, Continues on CIWA protocol. No further abdominal pain, hemoglobin stable. No DTs. Significant clinical improvement. Cleared by all consults for discharge .Patient is being discharged to subacute rehab in a stable condition with guarded prognosis. EXAM: GENERAL: Sitting up in chair, alert and oriented 3, no acute distress CARDIOVASCULAR: S1, S2 regular.. No murmur RESPIRATION: Breath sounds diminished in the bases. No rhonchi or crackles. No wheezing. ABDOMEN: Soft, nondistended. Nontender. No guarding. no masses palpable. Bowel sounds heard. NERVOUS SYSTEM: No focal deficits. The impression and plan of care has been dictated as directed. : I performed a history and examination of this patient, discussed the same with the dictator. I agree with the dictator's note ,documented as a scribe. Any additional findings or plans will be noted. Patient Condition at Discharge: Stable Plan - Discharge Summary Discharge Rx Participant: Yes New Discharge Prescriptions: New INSULIN LISPRO (HumaLOG) [humaLOG] 0 unit SQ ACHS #1 vial Continue cloNIDine HCL [Catapres] 0.1 mg PO BID #60 tab Ferrous Sulfate [Iron (65 MG Elemental)] 325 mg PO DAILY metFORMIN HCL [Glucophage] 500 mg PO BID Sucralfate [Carafate] 1 gm PO AC-TID 30 Days #90 tab Magnesium Oxide [Mag-Ox] 400 mg PO DAILY #20 tablet Pantoprazole Sodium [Protonix] 40 mg PO BID #60 tablet. Multivitamins Thera [Multivitamin (formulary)] 1 tab PO DAILY Folic Acid 1 mg PO AC-LUNCH #30 tab Budesonide-Formot 160-4.5 Mcg [Symbicort 160-4.5 Mcg Inhaler] 2 puff INHALATION RT-BID #1 inh Thiamine Mononitrate (Vit B1) [Vitamin B-1] 100 mg PO DAILY@1200 Acetaminophen Tab [Tylenol] 500 mg PO Q6HR tab LORazepam [Ativan] 1 mg PO Q8H PRN 3 Days #9 tab PRN Reason: Anxiety HYDROcodone/APAP 7.5-325MG [[place] 7.5-325] 1 each PO Q4H PRN #18 tab PRN Reason: Pain Discontinued amLODIPine [Norvasc] 5 mg PO BID Discharge Medication List cloNIDine HCL [Catapres] 0.1 mg PO BID #60 tab 03/26/18 [Rx] Ferrous Sulfate [Iron (65 MG Elemental)] 325 mg PO DAILY 04/24/18 [History] metFORMIN HCL [Glucophage] 500 mg PO BID 10/19/18 [History] Sucralfate [Carafate] 1 gm PO AC-TID 30 Days #90 tab 10/24/18 [Rx] Magnesium Oxide [Mag-Ox] 400 mg PO DAILY #20 tablet 11/01/18 [Rx] Pantoprazole Sodium [Protonix] 40 mg PO BID #60 tablet. 11/04/18 [Rx] Multivitamins, Thera [Multivitamin (formulary)] 1 tab PO DAILY 12/12/18 [History] Budesonide-Formot 160-4.5 Mcg [Symbicort 160-4.5 Mcg Inhaler] 2 puff INHALATION RT-BID #1 inh 12/15/18 [Rx] Folic Acid 1 mg PO AC-LUNCH #30 tab 12/15/18 [Rx] Thiamine Mononitrate (Vit B1) [Vitamin B-1] 100 mg PO DAILY@1200 12/29/18 [History] Acetaminophen Tab [Tylenol] 500 mg PO Q6HR tab 02/08/19 [Rx] HYDROcodone/APAP 7.5-325MG [[place] 7.5-325] 1 each PO Q4H PRN #18 tab 03/15/19 [Rx] INSULIN LISPRO (HumaLOG) [humaLOG] 0 unit SQ ACHS #1 vial 03/15/19 [Rx] LORazepam [Ativan] 1 mg PO Q8H PRN 3 Days #9 tab 03/15/19 [Rx] Follow up Appointment(s)/Referral(s): Alexys Marcus MD [STAFF PHYSICIAN] - 1 Week (After DC from subacute rehab) [facility], [NON-STAFF] - 1-2 Days Activity/Diet/Wound Care/Special Instructions: [facility] Diet: COnsist. Carb Activity: as tolerated CBC, BMP in 3 days Discharge Disposition: TRANSFER TO SNF/F
[2019-03-15] MEDS ORDERED: cloNIDine HCL 0.1 MG TAB PO SCH (11:30)
[2019-03-15] MEDS ORDERED: THIAMINE MONONITRATE (VIT B1) 100 MG TABLET PO SCH (12:00)
[2019-03-15] MEDS ORDERED: ACETAMINOPHEN TAB 500 MG TAB PO SCH (12:00)
[2019-03-15] MEDS ORDERED: INSULIN ASPART (NovoLOG) 100 UNIT/ML VIAL SQ SCH (12:30)
[2019-03-15] MEDS ORDERED: FOLIC ACID 1 MG TAB PO SCH (12:30)
[2019-03-15] MEDS ORDERED: metFORMIN 500 MG TAB PO SCH (17:30)
[2019-03-15] MEDS ORDERED: SYMBICORT 160-4.5 MCG INHALER INHALATION SCH (20:00)
[2019-03-16] MEDS ORDERED: FERROUS SULFATE 325 MG TAB PO SCH (09:00)
[2019-03-16] MEDS ORDERED: MAGNESIUM OXIDE 400 MG TAB PO SCH (09:00)
[2019-03-16] MEDS ORDERED: MULTIVITAMINS, THERA 1 EACH TAB PO SCH (09:00)
== END 2019-03-15 13:00 | DRG 369 ==
LOC: EC 09:07 → 3SCARD 12:02 → 2SICU 12:56 → 3NMEDONC 03-13 15:34
PROVIDERS: ADMIT Family Medicine; ATTEND Family Medicine
PROC: 06L38CZ Occlusion of Esophageal Vein with Extraluminal Device, Via Natural or Artificial Opening Endoscopic (ICD-10-PCS; principal; 2019-03-13 07:45)
DX: I85.11 Secondary esophageal varices with bleeding (principal); D62 Acute posthemorrhagic anemia; I48.20 Chronic atrial fibrillation, unspecified; K76.6 Portal hypertension; D69.6 Thrombocytopenia, unspecified; E83.42 Hypomagnesemia; M41.9 Scoliosis, unspecified; K70.30 Alcoholic cirrhosis of liver without ascites; E11.9 Type 2 diabetes mellitus without complications; E78.5 Hyperlipidemia, unspecified; F32.9 Major depressive disorder, single episode, unspecified; F41.9 Anxiety disorder, unspecified; I10 Essential (primary) hypertension; I25.10 Atherosclerotic heart disease of native coronary artery without angina pectoris; J44.9 Chronic obstructive pulmonary disease, unspecified; K21.0 Gastro-esophageal reflux disease with esophagitis; K59.00 Constipation, unspecified; N42.9 Disorder of prostate, unspecified; R29.6 Repeated falls; S42.302D Unspecified fracture of shaft of humerus, left arm, subsequent encounter for fracture with routine healing; K57.90 Diverticulosis of intestine, part unspecified, without perforation or abscess without bleeding; M25.511 Pain in right shoulder; R06.6 Hiccough; M79.18 Myalgia, other site; M50.30 Other cervical disc degeneration, unspecified cervical region; G89.29 Other chronic pain; M54.41 Lumbago with sciatica, right side; M47.816 Spondylosis without myelopathy or radiculopathy, lumbar region; H93.19 Tinnitus, unspecified ear; E55.9 Vitamin D deficiency, unspecified; Z79.4 Long term (current) use of insulin; Z79.51 Long term (current) use of inhaled steroids; Z79.899 Other long term (current) drug therapy; Z85.46 Personal history of malignant neoplasm of prostate; Z86.711 Personal history of pulmonary embolism; Z86.73 Personal history of transient ischemic attack (TIA), and cerebral infarction without residual deficits; Y90.1 Blood alcohol level of 20-39 mg/100 ml; Z91.040 Latex allergy status; Z88.8 Allergy status to other drugs, medicaments and biological substances; Z91.018 Allergy to other foods; Z91.048 Other nonmedicinal substance allergy status; Z86.14 Personal history of Methicillin resistant Staphylococcus aureus infection; Z90.49 Acquired absence of other specified parts of digestive tract; Z87.01 Personal history of pneumonia (recurrent); Z82.3 Family history of stroke; Z82.5 Family history of asthma and other chronic lower respiratory diseases; Z82.0 Family history of epilepsy and other diseases of the nervous system; W18.2XXA Fall in (into) shower or empty bathtub, initial encounter; Y92.002 Bathroom of unspecified non-institutional (private) residence as the place of occurrence of the external cause
CPT/HCPCS: 36415; 43244; 70450; 71045; 72125; 80048; 80053; 80320; 83735; 84484; 85025; 85730; 86850; 86900; 86901; 87040; 87502; 93005; 96361; 96365; 96367; 96372; 96375; 99285

== ENCOUNTER 2019-03-26 04:11 | Emergency (ER) | payer OTHER ==
[2019-03-26] MEDS ORDERED: SODIUM CHLORIDE 0.9% 1,000 ML IV STA (04:16)
[2019-03-26] MEDS ORDERED: PANTOPRAZOLE 40 MG/10 ML VIAL IVP STA (04:16)
[2019-03-26 04:33] LABS: Anisocytosis Slight; Basophils # (A) 0.1 k/uL (0-0.2); Basophils % (A) 2 %; Eosinophils # (A) 0.1 k/uL (0-0.7); Eosinophils % (A) 2 %; HCT 31.7 % (39.0-53.0); HGB 9.9 gm/dL (13.0-17.5); Hypochromasia Slight; Lymphocytes # (A) 1.1 k/uL (1.0-4.8); Lymphocytes % (A) 32 %; MCH 26.7 pg (25.0-35.0); MCHC 31.2 g/dL (31.0-37.0); MCV 85.5 fL (80.0-100.0); Mean Platelet Volume 6.8; Monocytes # (A) 0.3 k/uL (0-1.0); Monocytes % (A) 9 %; Neutrophils # (A) 1.8 k/uL (1.3-7.7); Neutrophils % (A) 54 %; RBC 3.71 m/uL (4.30-5.90); RDW 17.9 % (11.5-15.5); WBC 3.3 k/uL (3.8-10.6)
[2019-03-26 04:37] LABS: Platelet Count 248 k/uL (150-450)
[2019-03-26 04:38] LABS: INR 1.2 (<1.2); Partial Thromboplastin Time 25.1 sec (22.0-30.0); Prothrombin Time 12.7 sec (9.0-12.0)
[2019-03-26 04:40] LABS: ALT 38 U/L (21-72); AST 105 U/L (17-59); African American GFR (CKD) >90 (>60 ml/min/1.73 sqM); Albumin 3.3 g/dL (3.5-5.0); Alkaline Phosphatase 179 U/L (38-126); Anion Gap 9 mmol/L; Blood Urea Nitrogen 6 mg/dL (9-20); Calcium 8.6 mg/dL (8.4-10.2); Carbon Dioxide 26 mmol/L (22-30); Chloride 108 mmol/L (98-107); Glucose 168 mg/dL (74-99); Sodium 143 mmol/L (137-145); Total Bilirubin 0.6 mg/dL (0.2-1.3); Total Protein 7.8 g/dL (6.3-8.2)
[2019-03-26 04:47] LABS: Potassium 3.9 mmol/L (3.5-5.1)
--- NOTE | 2019-03-26 04:51 | XR ---
EXAM: XR Abdomen, 2 Views CLINICAL HISTORY: abdominal pain TECHNIQUE: Frontal view of the abdomen/pelvis with upright view of the abdomen. COMPARISON: CT abdomen and pelvis dated 01/28/2019 FINDINGS: Intraperitoneal space: No pneumoperitoneum. Gastrointestinal tract: Scattered gas collections noted throughout the small and large bowel to the level of the distal rectosigmoid colon in the central pelvis. No air-fluid levels or dilated loops of bowel identified. Organs: Cholecystectomy clips are identified in the right upper quadrant. Bones/joints: Unremarkable. IMPRESSION: Nonspecific, nonobstructive bowel gas pattern. No pneumoperitoneum.
[2019-03-26] MEDS ORDERED: DICYCLOMINE 10 MG/ML 2 ML AMP IM STA (05:05)
--- NOTE | 2019-03-26 05:25 | ED ---
Nausea/Vomiting/Diarrhea HPI - General Chief complaint: Nausea/Vomiting/Diarrhea Stated complaint: NVD Time Seen by Provider: 03/26/19 04:16 Source: patient, family, EMS Mode of arrival: EMS Limitations: no limitations - History of Present Illness Initial comments: Anders is a 63 yo male very well known to our ER who presents to the ER today via EMS for evaluation of nausea, vomiting and diarrhea. Patient reports he was in his usual state of health when he went to bed, he had a bowl of cereal with milk at bedtime. He woke this morning with nausea, vomiting and diarrhea. Vomit is non-bloody, non-bilious, vomiting resolved with EMS dose of IV zofran. Patient reports a few loose stools, non-bloody. - Related Data Home Medications Medication Instructions Recorded Confirmed Ferrous Sulfate [Iron (65 MG 325 mg PO DAILY 04/24/18 03/11/19 Elemental)] metFORMIN HCL [Glucophage] 500 mg PO BID 10/19/18 03/11/19 Multivitamins, Thera [Multivitamin 1 tab PO DAILY 12/12/18 03/11/19 (formulary)] Thiamine Mononitrate (Vit B1) 100 mg PO DAILY@1200 12/29/18 03/11/19 [Vitamin B-1] Previous Rx's Medication Instructions Recorded cloNIDine HCL [Catapres] 0.1 mg PO BID #60 tab 03/26/18 Sucralfate [Carafate] 1 gm PO AC-TID 30 Days #90 tab 10/24/18 Magnesium Oxide [Mag-Ox] 400 mg PO DAILY #20 tablet 11/01/18 Pantoprazole Sodium [Protonix] 40 mg PO BID #60 tablet. 11/04/18 Budesonide-Formot 160-4.5 Mcg 2 puff INHALATION RT-BID #1 inh 12/15/18 [Symbicort 160-4.5 Mcg Inhaler] Folic Acid 1 mg PO AC-LUNCH #30 tab 12/15/18 Acetaminophen Tab [Tylenol] 500 mg PO Q6HR tab 02/08/19 HYDROcodone/APAP 7.5-325MG [[place] 1 each PO Q4H PRN #18 tab 03/15/19 7.5-325] INSULIN LISPRO (HumaLOG) [humaLOG] 0 unit SQ ACHS #1 vial 03/15/19 LORazepam [Ativan] 1 mg PO Q8H PRN 3 Days #9 tab 03/15/19 Allergies Allergy/AdvReac Type Severity Reaction Status Date / Time adhesive tape Allergy Rash/Hives Verified 03/26/19 04:17 latex Allergy Unknown Verified 03/26/19 04:17 egg AdvReac Nausea & Verified 03/26/19 04:17 Vomiting lisinopril AdvReac EYES Verified 03/26/19 04:17 BURN&ITCH/WEAKNESS tomato AdvReac Nausea & Verified 03/26/19 04:17 Vomiting & Diarrhea Review of Systems ROS Statement: Those systems with pertinent positive or pertinent negative responses have been documented in the HPI. ROS Other: All systems not noted in ROS Statement are negative. Past Medical History Past Medical History: Atrial Fibrillation, Cancer, Chest Pain / Angina, COPD, CVA/TIA, Diabetes Mellitus, GERD/Reflux, GI Bleed, Hyperlipidemia, Hypertension, Pneumonia, Prostate Disorder, Pulmonary Embolus (PE) Additional Past Medical History / Comment(s): tachycardia/palpitations likely d/t alcohol withdrawal. hx of Alcoholism, chronic alcoholic cirrhosis with portal hypertension and previous history of upper and lower GI bleeding, esophageal varices, previous history of childhood seizure which he outgrew not taking any antiepileptic medication-possibly had recent seizure-2018 thought d/t alcohol withdrawal, pulmonary embolism x 2 R lung, TIA, diverticulosis, chronic lower bilateral extremity ankle edema if he walks alot, previous history of septicemia, cervical disc disease with chronic back pain with r sided sciatica, degenerative arthritis involving the lower back, tinnitus, vitamin D deficiency, iron anemia, chronic thrombocytopenia, denies MRSA, C-DIFF , scoliosis, scoliosis. pt had radiation th04/28 for prostate cancer History of Any Multi-Drug Resistant Organisms: MRSA Date of last positivie culture/infection: 03/17/18 MDRO Source:: stomach Past Surgical History: Appendectomy, Cholecystectomy Additional Past Surgical History / Comment(s): EGDs/esophageal varicies bandings, colonoscopies. Past Anesthesia/Blood Transfusion Reactions: No Reported Reaction Additional Past Anesthesia/Blood Transfusion Reaction / Comment(s): after appendix removed sob Past Psychological History: Anxiety, Depression Smoking Status: Never smoker Past Alcohol Use History: Abuse, Daily, Heavy Past Drug Use History: None Reported - Past Family History Mother Family Medical History: COPD, CVA/TIA, Dementia Additional Family Medical History / Comment(s): from a stroke Father Family Medical History: Pneumonia Additional Family Medical History / Comment(s): Father of pneumonia when he was close to 80 yrs old. General Exam Limitations: no limitations General appearance: alert, in no apparent distress Head exam: Present: atraumatic, normocephalic Eye exam: Present: normal appearance, PERRL ENT exam: Present: normal exam, mucous membranes moist Respiratory exam: Present: normal lung sounds bilaterally. Absent: respiratory distress Cardiovascular Exam: Present: tachycardia GI/Abdominal exam: Absent: distended Rectal exam: Present: deferred Extremities exam: Present: other (chronic pain and decreased ROM of left shoulder) Neurological exam: Present: alert, oriented X3 Skin exam: Present: warm, dry Course Vital Signs 03/26/19 03/26/19 04:13 06:55 Temperature 99.3 F 98 F Pulse Rate 119 H 100 Respiratory 20 18 Rate Blood Pressure 150/96 131/71 O2 Sat by Pulse 96 98 Oximetry Medical Decision Making - Medical Decision Making Patient with N/V/D, given antiemetics en route to the hospital Labs were reviewed, there are some leukopenia, chronic anemia, electrolytes are within normal limits. Patient has had no vomiting or diarrhea while in the emergency department. Results were discussed with the patient, at this time I feel the patient stable for discharge home with symptomatic care. He will be given Zofran ODT starter pack. Patient was encouraged to drink plenty of fluids and stay hydrated. Return parameters were discussed patient was discharged home in stable cond ition. - Lab Data Result diagrams: 03/26/19 04:20 03/26/19 04:20 Lab Results 03/26/19 03/26/19 03/26/19 Range/Units 04:20 04:20 04:20 WBC 3.3 L (3.8-10.6) k/uL RBC 3.71 L (4.30-5.90) m/uL Hgb 9.9 L (13.0-17.5) gm/dL Hct 31.7 L (39.0-53.0) % MCV 85.5 (80.0-100.0) fL MCH 26.7 (25.0-35.0) pg MCHC 31.2 (31.0-37.0) g/dL RDW 17.9 H (11.5-15.5) % Plt Count 248 D (150-450) k/uL Neutrophils % 54 % Lymphocytes % 32 % Monocytes % 9 % Eosinophils % 2 % Basophils % 2 % Neutrophils # 1.8 (1.3-7.7) k/uL Lymphocytes # 1.1 (1.0-4.8) k/uL Monocytes # 0.3 (0-1.0) k/uL Eosinophils # 0.1 (0-0.7) k/uL Basophils # 0.1 (0-0.2) k/uL Hypochromasia Slight Anisocytosis Slight PT (9.0-12.0) sec INR (<1.2) APTT (22.0-30.0) sec Sodium 143 (137-145) mmol/L Potassium 3.9 (3.5-5.1) mmol/L Chloride 108 H (98-107) mmol/L Carbon Dioxide 26 (22-30) mmol/L Anion Gap 9 mmol/L BUN 6 L (9-20) mg/dL Creatinine 0.59 L (0.66-1.25) mg/dL Est GFR (CKD-EPI)AfAm >90 (>60 ml/min/1.73 sqM) Est GFR (CKD-EPI)NonAf >90 (>60 ml/min/1.73 sqM) Glucose 168 H (74-99) mg/dL Lactic Ac Sepsis Rflx Plasma Lactic Acid Hitesh 2.2 H* (0.7-2.0) mmol/L Calcium 8.6 (8.4-10.2) mg/dL Total Bilirubin 0.6 (0.2-1.3) mg/dL AST 105 H (17-59) U/L ALT 38 (21-72) U/L Alkaline Phosphatase 179 H (38-126) U/L Total Protein 7.8 (6.3-8.2) g/dL Albumin 3.3 L (3.5-5.0) g/dL Lipase 123 (23-300) U/L Urine Color Urine Appearance (Clear) Urine pH (5.0-8.0) Ur Specific [place] (1.001-1.035) Urine Protein (Negative) Urine Glucose (UA) (Negative) Urine Ketones (Negative) Urine Blood (Negative) Urine Nitrite (Negative) Urine Bilirubin (Negative) Urine Urobilinogen (<2.0) mg/dL Ur Leukocyte Esterase (Negative) 03/26/19 03/26/19 03/26/19 Range/Units 04:20 04:47 06:10 WBC (3.8-10.6) k/uL RBC (4.30-5.90) m/uL Hgb (13.0-17.5) gm/dL Hct (39.0-53.0) % MCV (80.0-100.0) fL MCH (25.0-35.0) pg MCHC (31.0-37.0) g/dL RDW (11.5-15.5) % Plt Count (150-450) k/uL Neutrophils % % Lymphocytes % % Monocytes % % Eosinophils % % Basophils % % Neutrophils # (1.3-7.7) k/uL Lymphocytes # (1.0-4.8) k/uL Monocytes # (0-1.0) k/uL Eosinophils # (0-0.7) k/uL Basophils # (0-0.2) k/uL Hypochromasia Anisocytosis PT 12.7 H (9.0-12.0) sec INR 1.2 H (<1.2) APTT 25.1 (22.0-30.0) sec Sodium (137-145) mmol/L Potassium (3.5-5.1) mmol/L Chloride (98-107) mmol/L Carbon Dioxide (22-30) mmol/L Anion Gap mmol/L BUN (9-20) mg/dL Creatinine (0.66-1.25) mg/dL Est GFR (CKD-EPI)AfAm (>60 ml/min/1.73 sqM) Est GFR (CKD-EPI)NonAf (>60 ml/min/1.73 sqM) Glucose (74-99) mg/dL Lactic Ac Sepsis Rflx Y Plasma Lactic Acid Hitesh (0.7-2.0) mmol/L Calcium (8.4-10.2) mg/dL Total Bilirubin (0.2-1.3) mg/dL AST (17-59) U/L ALT (21-72) U/L Alkaline Phosphatase (38-126) U/L Total Protein (6.3-8.2) g/dL Albumin (3.5-5.0) g/dL Lipase (23-300) U/L Urine Color Yellow Urine Appearance Clear (Clear) Urine pH 5.5 (5.0-8.0) Ur Specific [place] 1.014 (1.001-1.035) Urine Protein Negative (Negative) Urine Glucose (UA) Negative (Negative) Urine Ketones Negative (Negative) Urine Blood Negative (Negative) Urine Nitrite Negative (Negative) Urine Bilirubin Negative (Negative) Urine Urobilinogen <2.0 (<2.0) mg/dL Ur Leukocyte Esterase Negative (Negative) Disposition Clinical Impression: Nausea vomiting and diarrhea Disposition: HOME SELF-CARE Condition: Stable Instructions (If sedation given, give patient instructions): Acute Nausea and Vomiting (ED) Is patient prescribed a controlled substance at d/c from ED?: No Referrals: Yoon Phillips DO [Primary Care Provider] - 1-2 days
[2019-03-26 06:17] LABS: Appearance,Urine Clear (Clear); Bilirubin,Urine Negative (Negative); Blood,Urine Negative (Negative); Color,Urine Yellow; Glucose,Urine (UA) Negative (Negative); Ketones,Urine Negative (Negative); Leukocyte Esterase,Urine Negative (Negative); Nitrite,Urine Negative (Negative); PH, Urine 5.5 (5.0-8.0); Protein,Urine Negative (Negative); Specific Gravity,Urine 1.014 (1.001-1.035); Urobilinogen,Urine <2.0 mg/dL (<2.0)
[2019-03-26] MEDS ORDERED: ONDANSETRON 4 MG ODT STARTER PACK 2 TAB BTL PO STA (06:42)
[2019-03-26 06:56] VITALS: BP 131/71; PULSE 100; RESP 18; TEMP 98
== END 2019-03-26 07:04 | disposition home or self-care (01) ==
LOC: EC 04:11
DX: R11.2 Nausea with vomiting, unspecified (principal); R19.7 Diarrhea, unspecified; D72.819 Decreased white blood cell count, unspecified; D50.9 Iron deficiency anemia, unspecified; R00.0 Tachycardia, unspecified; G89.29 Other chronic pain; E11.9 Type 2 diabetes mellitus without complications; Z88.8 Allergy status to other drugs, medicaments and biological substances; Z91.012 Allergy to eggs; Z91.018 Allergy to other foods; Z91.040 Latex allergy status; Z91.048 Other nonmedicinal substance allergy status; Z79.84 Long term (current) use of oral hypoglycemic drugs; Z79.899 Other long term (current) drug therapy; Z86.14 Personal history of Methicillin resistant Staphylococcus aureus infection; Z85.46 Personal history of malignant neoplasm of prostate; Z92.3 Personal history of irradiation; Z90.49 Acquired absence of other specified parts of digestive tract
CPT/HCPCS: 36415; 80053; 83605; 83690; 85025; 85610; 85730; 81003; 74019; 99284; 96374; 96361 ×2; 96372; J0500; S0119; C9113

== ENCOUNTER 2019-03-26 20:57 | Emergency (ER) | payer OTHER ==
[2019-03-26 21:06] VITALS: PULSE 118; RESP 18
[2019-03-26] MEDS ORDERED: DICYCLOMINE 20 MG TAB PO STA (21:15)
[2019-03-26] MEDS ORDERED: PANTOPRAZOLE 40 MG/10 ML VIAL IVP STA (21:15)
[2019-03-26] MEDS ORDERED: SODIUM CHLORIDE 0.9% 1,000 ML IV STA (21:16)
[2019-03-26] MEDS ORDERED: ONDANSETRON 4 MG/2 ML VIAL IVP STA (21:16)
[2019-03-26 21:41] LABS: Anisocytosis Slight; HCT 30.4 % (39.0-53.0); HGB 9.7 gm/dL (13.0-17.5); Hypochromasia Moderate; MCH 27.4 pg (25.0-35.0); MCHC 32.1 g/dL (31.0-37.0); MCV 85.5 fL (80.0-100.0); Mean Platelet Volume 6.4; Platelet Count 235 k/uL (150-450); RBC 3.55 m/uL (4.30-5.90); RDW 17.2 % (11.5-15.5); WBC 4.1 k/uL (3.8-10.6)
[2019-03-26 21:52] LABS: African American GFR (CKD) >90 (>60 ml/min/1.73 sqM); Albumin 3.3 g/dL (3.5-5.0); Anion Gap 9 mmol/L; Carbon Dioxide 27 mmol/L (22-30); Chloride 101 mmol/L (98-107); Glucose 168 mg/dL (74-99); Sodium 137 mmol/L (137-145); Total Protein 7.8 g/dL (6.3-8.2)
[2019-03-26 22:06] LABS: ALT 36 U/L (21-72); AST 99 U/L (17-59); Blood Urea Nitrogen 4 mg/dL (9-20); Potassium 3.6 mmol/L (3.5-5.1)
[2019-03-26 22:07] LABS: Alkaline Phosphatase 194 U/L (38-126)
[2019-03-26] MEDS ORDERED: ONDANSETRON 4 MG ODT STARTER PACK 2 TAB BTL PO STA (22:25)
--- NOTE | 2019-03-26 22:26 | ED ---
General Adult HPI - General Chief complaint: Nausea/Vomiting/Diarrhea Stated complaint: Poss dehydration Time Seen by Provider: 03/26/19 21:02 Source: patient, EMS Mode of arrival: EMS - History of Present Illness Initial comments: Patient is 63-year-old male presenting to emergency Department with a chief complaint of nausea vomiting or diarrhea. Patient reports he was discharged here last night for the same symptoms. Patient brought back.via EMS. Patient reports he tried using oral Zofran minimal improvement. Patient still reports nausea with multiple episodes of vomiting. Patient has not had any bowel movements today. Patient denies any abdominal pain. Patient denies any urinary or bowel symptoms. He does report chills but denies any fevers or night sweats. Patient denies taking any medication to alleviate his symptoms. Patient is concerned for dehydration. - Related Data Home Medications Medication Instructions Recorded Confirmed Ferrous Sulfate [Iron (65 MG 325 mg PO DAILY 04/24/18 03/11/19 Elemental)] metFORMIN HCL [Glucophage] 500 mg PO BID 10/19/18 03/11/19 Multivitamins, Thera [Multivitamin 1 tab PO DAILY 12/12/18 03/11/19 (formulary)] Thiamine Mononitrate (Vit B1) 100 mg PO DAILY@1200 12/29/18 03/11/19 [Vitamin B-1] Previous Rx's Medication Instructions Recorded cloNIDine HCL [Catapres] 0.1 mg PO BID #60 tab 03/26/18 Sucralfate [Carafate] 1 gm PO AC-TID 30 Days #90 tab 10/24/18 Magnesium Oxide [Mag-Ox] 400 mg PO DAILY #20 tablet 11/01/18 Pantoprazole Sodium [Protonix] 40 mg PO BID #60 tablet. 11/04/18 Budesonide-Formot 160-4.5 Mcg 2 puff INHALATION RT-BID #1 inh 12/15/18 [Symbicort 160-4.5 Mcg Inhaler] Folic Acid 1 mg PO AC-LUNCH #30 tab 12/15/18 Acetaminophen Tab [Tylenol] 500 mg PO Q6HR tab 02/08/19 HYDROcodone/APAP 7.5-325MG [[place] 1 each PO Q4H PRN #18 tab 03/15/19 7.5-325] INSULIN LISPRO (HumaLOG) [humaLOG] 0 unit SQ ACHS #1 vial 03/15/19 LORazepam [Ativan] 1 mg PO Q8H PRN 3 Days #9 tab 03/15/19 Ondansetron Odt [Zofran Odt] 4 mg PO Q8HR PRN #10 tab 03/26/19 Allergies Allergy/AdvReac Type Severity Reaction Status Date / Time adhesive tape Allergy Rash/Hives Verified 03/26/19 04:17 latex Allergy Unknown Verified 03/26/19 04:17 egg AdvReac Nausea & Verified 03/26/19 04:17 Vomiting lisinopril AdvReac EYES Verified 03/26/19 04:17 BURN&ITCH/WEAKNESS tomato AdvReac Nausea & Verified 03/26/19 04:17 Vomiting & Diarrhea Review of Systems ROS Statement: Those systems with pertinent positive or pertinent negative responses have been documented in the HPI. ROS Other: All systems not noted in ROS Statement are negative. Past Medical History Past Medical History: Atrial Fibrillation, Cancer, Chest Pain / Angina, COPD, CVA/TIA, Diabetes Mellitus, GERD/Reflux, GI Bleed, Hyperlipidemia, Hypertension, Pneumonia, Prostate Disorder, Pulmonary Embolus (PE) Additional Past Medical History / Comment(s): tachycardia/palpitations likely d/t alcohol withdrawal. hx of Alcoholism, chronic alcoholic cirrhosis with portal hypertension and previous history of upper and lower GI bleeding, esophageal varices, previous history of childhood seizure which he outgrew not taking any antiepileptic medication-possibly had recent seizure-2018 thought d/t alcohol withdrawal, pulmonary embolism x 2 R lung, TIA, diverticulosis, chronic lower bilateral extremity ankle edema if he walks alot, previous history of s epticemia, cervical disc disease with chronic back pain with r sided sciatica, degenerative arthritis involving the lower back, tinnitus, vitamin D deficiency, iron anemia, chronic thrombocytopenia, denies MRSA, C-DIFF -2018, scoliosis, scoliosis. pt had radiation th04/28 for prostate cancer History of Any Multi-Drug Resistant Organisms: MRSA Date of last positivie culture/infection: 03/17/18 MDRO Source:: stomach Past Surgical History: Appendectomy, Cholecystectomy Additional Past Surgical History / Comment(s): EGDs/esophageal varicies bandings, colonoscopies. Past Anesthesia/Blood Transfusion Reactions: No Reported Reaction Additional Past Anesthesia/Blood Transfusion Reaction / Comment(s): after appendix removed sob Past Psychological History: Anxiety, Depression Smoking Status: Never smoker Past Alcohol Use History: Abuse, Daily, Heavy Past Drug Use History: None Reported - Past Family History Mother Family Medical History: COPD, CVA/TIA, Dementia Additional Family Medical History / Comment(s): from a stroke Father Family Medical History: Pneumonia Additional Family Medical History / Comment(s): Father of pneumonia when he was close to 80 yrs old. General Exam Limitations: no limitations General appearance: alert, in no apparent distress Head exam: Present: atraumatic, normocephalic, normal inspection Eye exam: Present: normal appearance Pupils: Present: normal accommodation ENT exam: Present: normal exam, normal oropharynx, mucous membranes moist, TM's normal bilaterally, normal external ear exam Neck exam: Present: normal inspection, full ROM Respiratory exam: Present: normal lung sounds bilaterally Cardiovascular Exam: Present: regular rate, normal rhythm, normal heart sounds GI/Abdominal exam: Present: soft, normal bowel sounds. Absent: distended, tenderness, guarding, rebound, diminished bowel sounds, hyperactive bowel sounds, hypoactive bowel sounds, mass Extremities exam: Present: normal inspection, full ROM Back exam: Present: normal inspection, full ROM Neurological exam: Present: alert, oriented X3, normal gait Psychiatric exam: Present: normal affect, normal mood Skin exam: Present: warm, dry, intact, normal color Course Vital Signs 03/26/19 03/26/19 21:00 22:40 Temperature 99.2 F 99 F Pulse Rate 118 H 118 H Respiratory 18 18 Rate Blood Pressure 152/94 153/99 O2 Sat by Pulse 97 97 Oximetry Medical Decision Making - Medical Decision Making Patient is a 63-year-old male presenting to the emergency department with a chief complaint of nausea vomiting and diarrhea. Patient is well-known to the E D for his recurrent visits. Patient was discharged this morning with the exact same symptoms. Patient was given antiemetics, fluids, Bentyl protonic. On reevaluation patient reports improvement in his symptoms although he still feels chilly. Vital stable. Patient will be discharged with Zofran. Patient advised to follow with primary care. Strict return parameters were thoroughly discussed the patient who is understanding and agreeable. Case discussed with physician. - Lab Data Result diagrams: 03/26/19 21:20 03/26/19 21:20 Lab Results 03/26/19 03/26/19 Range/Units 21:20 21:20 WBC 4.1 (3.8-10.6) k/uL RBC 3.55 L (4.30-5.90) m/uL Hgb 9.7 L (13.0-17.5) gm/dL Hct 30.4 L (39.0-53.0) % MCV 85.5 (80.0-100.0) fL MCH 27.4 (25.0-35.0) pg MCHC 32.1 (31.0-37.0) g/dL RDW 17.2 H (11.5-15.5) % Plt Count 235 (150-450) k/uL Hypochromasia Moderate Anisocytosis Slight Sodium 137 (137-145) mmol/L Potassium 3.6 (3.5-5.1) mmol/L Chloride 101 (98-107) mmol/L Carbon Dioxide 27 (22-30) mmol/L Anion Gap 9 mmol/L BUN 4 L (9-20) mg/dL Creatinine 0.54 L (0.66-1.25) mg/dL Est GFR (CKD-EPI)AfAm >90 (>60 ml/min/1.73 sqM) Est GFR (CKD-EPI)NonAf >90 (>60 ml/min/1.73 sqM) Glucose 168 H (74-99) mg/dL Calcium 9.0 (8.4-10.2) mg/dL Total Bilirubin 1.0 (0.2-1.3) mg/dL AST 99 H (17-59) U/L ALT 36 (21-72) U/L Alkaline Phosphatase 194 H (38-126) U/L Total Protein 7.8 (6.3-8.2) g/dL Albumin 3.3 L (3.5-5.0) g/dL Disposition Clinical Impression: Nausea vomiting and diarrhea Disposition: HOME SELF-CARE Condition: Good Instructions (If sedation given, give patient instructions): Acute Nausea and Vomiting (ED) Additional Instructions: Please see prescribe medication as directed. Please follow-up with primary care. Please return to emergency department symptoms worsen. Prescriptions: Ondansetron Odt [Zofran Odt] 4 mg PO Q8HR PRN #10 tab PRN Reason: Nausea Is patient prescribed a controlled substance at d/c from ED?: No Referrals: Yoon Phillips DO [Primary Care Provider] - 1-2 days Time of Disposition: 22:26
[2019-03-26 22:41] VITALS: BP 153/99; TEMP 99
== END 2019-03-26 22:49 | disposition home or self-care (01) ==
LOC: EC 20:57
DX: R11.2 Nausea with vomiting, unspecified (principal); R19.7 Diarrhea, unspecified; I48.91 Unspecified atrial fibrillation; E11.9 Type 2 diabetes mellitus without complications; I10 Essential (primary) hypertension; Z79.84 Long term (current) use of oral hypoglycemic drugs; Z91.048 Other nonmedicinal substance allergy status; Z91.040 Latex allergy status; Z91.018 Allergy to other foods; Z91.012 Allergy to eggs; Z88.8 Allergy status to other drugs, medicaments and biological substances; Z86.711 Personal history of pulmonary embolism; Z86.73 Personal history of transient ischemic attack (TIA), and cerebral infarction without residual deficits; Z85.46 Personal history of malignant neoplasm of prostate
CPT/HCPCS: 36415; 80053; 85027; 99284; 96374; 96375; 96361; J2405; S0119; C9113

== ENCOUNTER 2019-04-13 06:40 | Inpatient (IN) | payer OTHER ==
[2019-04-13] MEDS ORDERED: SODIUM CHLORIDE 0.9% 1,000 ML IV STA (06:53)
[2019-04-13] MEDS ORDERED: ONDANSETRON 4 MG/2 ML VIAL IVP STA ×2 (06:53→07:56)
[2019-04-13] MEDS ORDERED: PANTOPRAZOLE 40 MG/10 ML VIAL IVP STA (06:54)
--- NOTE | 2019-04-13 07:18 | ED ---
Nausea/Vomiting/Diarrhea HPI - General Chief complaint: Nausea/Vomiting/Diarrhea Stated complaint: ETOH Time Seen by Provider: 04/13/19 06:45 Source: patient, EMS Mode of arrival: EMS - History of Present Illness Initial comments: Patient is a 64-year-old male presenting to the emergency Department with complaints of vomiting blood since yesterday. Patient is well-known to this ER for similar complaints. Patient admits to being a heavy alcohol abuser. Patient states he had 2 drinks this morning. Patient has been dry heaving on the way to the ER in the ambulance however no active bleeding at this time. Patient admits to some mild generalized abdominal pain secondary to the dry heaving. Patient denies fever, chills. Patient admits to mild cough. Patient has no other complaints at this time. Upon arrival to ER, Patient is slightly tachycardia at 130, rest of vitals are normal. - Related Data Home Medications Medication Instructions Recorded Confirmed Ferrous Sulfate [Iron (65 MG 325 mg PO DAILY 04/24/18 04/13/19 Elemental)] metFORMIN HCL [Glucophage] 500 mg PO BID 10/19/18 04/13/19 Multivitamins, Thera [Multivitamin 1 tab PO DAILY 12/12/18 04/13/19 (formulary)] Thiamine Mononitrate (Vit B1) 100 mg PO DAILY@1200 12/29/18 04/13/19 [Vitamin B-1] Amitriptyline HCl [Elavil] 25 mg PO HS 04/13/19 04/13/19 HYDROcodone/APAP 7.5-325MG [[place] 1 tab PO BID PRN 04/13/19 04/13/19 7.5-325] Previous Rx's Medication Instructions Recorded cloNIDine HCL [Catapres] 0.1 mg PO BID #60 tab 03/26/18 Sucralfate [Carafate] 1 gm PO AC-TID 30 Days #90 tab 10/24/18 Magnesium Oxide [Mag-Ox] 400 mg PO DAILY #20 tablet 11/01/18 Pantoprazole Sodium [Protonix] 40 mg PO BID #60 tablet. 11/04/18 Budesonide-Formot 160-4.5 Mcg 2 puff INHALATION RT-BID #1 inh 12/15/18 [Symbicort 160-4.5 Mcg Inhaler] Folic Acid 1 mg PO AC-LUNCH #30 tab 12/15/18 Acetaminophen Tab [Tylenol] 500 mg PO Q6HR tab 02/08/19 INSULIN LISPRO (HumaLOG) [humaLOG] 0 unit SQ ACHS #1 vial 03/15/19 LORazepam [Ativan] 1 mg PO Q8H PRN 3 Days #9 tab 03/15/19 Ondansetron Odt [Zofran Odt] 4 mg PO Q8HR PRN #10 tab 03/26/19 Allergies Allergy/AdvReac Type Severity Reaction Status Date / Time adhesive tape Allergy Rash/Hives Verified 04/13/19 09:25 latex Allergy Unknown Verified 04/13/19 09:25 egg AdvReac Nausea & Verified 04/13/19 09:25 Vomiting lisinopril AdvReac EYES Verified 04/13/19 09:25 BURN&ITCH/WEAKNESS tomato AdvReac Nausea & Verified 04/13/19 09:25 Vomiting & Diarrhea Review of Systems ROS Statement: Those systems with pertinent positive or pertinent negative responses have been documented in the HPI. ROS Other: All systems not noted in ROS Statement are negative. Past Medical History Past Medical History: Atrial Fibrillation, Cancer, Chest Pain / Angina, COPD, CVA/TIA, Diabetes Mellitus, GERD/Reflux, GI Bleed, Hyperlipidemia, Hypertension, Pneumonia, Prostate Disorder, Pulmonary Embolus (PE) Additional Past Medical History / Comment(s): tachycardia/palpitations likely d/t alcohol withdrawal. hx of Alcoholism, chronic alcoholic cirrhosis with portal hypertension and previous history of upper and lower GI bleeding, esophageal varices, previous history of childhood seizure which he outgrew not taking any antiepileptic medication-possibly had recent seizure-2017 thought d/t alcohol withdrawal, pulmonary embolism x 2 R lung, TIA, diverticulosis, chronic lower bilateral extremity ankle edema if he walks alot, previous history of septicemia, cervical disc disease with chronic back pain with r sided sciatica, degenerative arthritis involving the lower back, tinnitus, vitamin D deficiency, iron anemia, chronic thrombocytopenia, denies MRSA, C-DIFF -2018, scoliosis, scoliosis. pt had radiation th04/28 for prostate cancer History of Any Multi-Drug Resistant Organisms: MRSA Date of last positivie culture/infection: 03/17/18 MDRO Source:: stomach Past Surgical History: Appendectomy, Cholecystectomy Additional Past Surgical History / Comment(s): EGDs/esophageal varicies bandings, colonoscopies. Past Anesthesia/Blood Transfusion Reactions: No Reported Reaction Additional Past Anesthesia/Blood Transfusion Reaction / Comment(s): after appendix removed sob Past Psychological History: Anxiety, Depression Smoking Status: Never smoker Past Alcohol Use History: Abuse, Daily, Heavy Past Drug Use History: None Reported - Past Family History Mother Family Medical History: COPD, CVA/TIA, Dementia Additional Family Medical History / Comment(s): from a stroke Father Family Medical History: Pneumonia Additional Family Medical History / Comment(s): Father of pneumonia when he was close to 80 yrs old. General Exam - General Exam Comments Initial Comments: GENERAL: Patient is disheveled, dry heaving during exam. HEAD: Atraumatic, normocephalic. EYES: Pupils equal round and reactive to light, extraocular movements intact, sclera anicteric, conjunctiva are normal. ENT: Nares patent, oropharynx clear without exudates. Dry mucous membranes. NECK: Normal range of motion, supple without lymphadenopathy or JVD. LUNGS: Breath sounds clear to auscultation bilaterally and equal. No wheezes rales or rhonchi. HEART: Regular rate and rhythm without murmurs, rubs or gallops. ABDOMEN: Soft, nontender, normoactive bowel sounds. No guarding, no rebound. No masses appreciated. : Deferred EXTREMITIES: Normal range of motion, no pitting or edema. No clubbing or cyanosis. NEUROLOGICAL: Normal speech, normal gait. PSYCH: Normal mood, normal affect. SKIN: Warm, Dry, normal turgor, no rashes or lesions noted. Course Vital Signs 04/13/19 04/13/19 06:42 09:23 Temperature 98 F Pulse Rate 130 H 86 Respiratory 18 16 Rate Blood Pressure 114/88 141/76 O2 Sat by Pulse 98 99 Oximetry Medical Decision Making - Medical Decision Making Patient is a 64-year-old male presenting with nausea as well as hematemesis that started yesterday. Patient is not currently bleeding. Patient is slightly tachycardia otherwise vitals are normal. Patient's hemoglobin is 11. Rest of vital show no acute abnormality. Alcohol was 198. UA has 1+ ketone. Chest x- ray shows chronic changes without acute pulmonary process. Patient was given fluids, Zofran, Protonix. Given patient's history of acute varices and a recent scope procedures, patient will be admitted with GI consult. Patient was accepted by Dr. Riley. Case discussed in detail with Dr. Gallardo who agrees with this plan of care. - Lab Data Result diagrams: 04/13/19 07:12 04/13/19 07:12 Lab Results 04/13/19 04/13/19 04/13/19 Range/Units 07:12 07:12 07:12 WBC 5.3 (3.8-10.6) k/uL RBC 4.20 L (4.30-5.90) m/uL Hgb 11.0 L (13.0-17.5) gm/dL Hct 35.3 L (39.0-53.0) % MCV 84.0 (80.0-100.0) fL MCH 26.1 (25.0-35.0) pg MCHC 31.1 (31.0-37.0) g/dL RDW 16.7 H (11.5-15.5) % Plt Count 252 (150-450) k/uL Neutrophils % 50 % Lymphocytes % 39 % Monocytes % 7 % Eosinophils % 1 % Basophils % 1 % Neutrophils # 2.7 (1.3-7.7) k/uL Lymphocytes # 2.1 (1.0-4.8) k/uL Monocytes # 0.4 (0-1.0) k/uL Eosinophils # 0.1 (0-0.7) k/uL Basophils # 0.1 (0-0.2) k/uL Hypochromasia Marked Anisocytosis Slight PT (9.0-12.0) sec INR (<1.2) APTT (22.0-30.0) sec Sodium 144 (137-145) mmol/L Potassium 4.5 (3.5-5.1) mmol/L Chloride 103 (98-107) mmol/L Carbon Dioxide 23 (22-30) mmol/L Anion Gap 18 mmol/L BUN 12 (9-20) mg/dL Creatinine 0.79 (0.66-1.25) mg/dL Est GFR (CKD-EPI)AfAm >90 (>60 ml/min/1.73 sqM) Est GFR (CKD-EPI)NonAf >90 (>60 ml/min/1.73 sqM) Glucose 113 H (74-99) mg/dL Calcium 9.3 (8.4-10.2) mg/dL Total Bilirubin 0.6 (0.2-1.3) mg/dL AST 80 H (17-59) U/L ALT 34 (21-72) U/L Alkaline Phosphatase 203 H (38-126) U/L Total Protein 8.7 H (6.3-8.2) g/dL Albumin 4.1 (3.5-5.0) g/dL Amylase 93 (30-110) U/L Lipase 167 (23-300) U/L Serum Alcohol 198 mg/dL Blood Type A Positive Blood Type Recheck A Pos Bld Type Recheck Status No Antibody Screen NEGATIVE Spec Expiration Date 04/16/2019231104/13/19 Range/Units 07:12 WBC (3.8-10.6) k/uL RBC (4.30-5.90) m/uL Hgb (13.0-17.5) gm/dL Hct (39.0-53.0) % MCV (80.0-100.0) fL MCH (25.0-35.0) pg MCHC (31.0-37.0) g/dL RDW (11.5-15.5) % Plt Count (150-450) k/uL Neutrophils % % Lymphocytes % % Monocytes % % Eosinophils % % Basophils % % Neutrophils # (1.3-7.7) k/uL Lymphocytes # (1.0-4.8) k/uL Monocytes # (0-1.0) k/uL Eosinophils # (0-0.7) k/uL Basophils # (0-0.2) k/uL Hypochromasia Anisocytosis PT 12.1 H (9.0-12.0) sec INR 1.2 H (<1.2) APTT 25.7 (22.0-30.0) sec Sodium (137-145) mmol/L Potassium (3.5-5.1) mmol/L Chloride (98-107) mmol/L Carbon Dioxide (22-30) mmol/L Anion Gap mmol/L BUN (9-20) mg/dL Creatinine (0.66-1.25) mg/dL Est GFR (CKD-EPI)AfAm (>60 ml/min/1.73 sqM) Est GFR (CKD-EPI)NonAf (>60 ml/min/1.73 sqM) Glucose (74-99) mg/dL Calcium (8.4-10.2) mg/dL Total Bilirubin (0.2-1.3) mg/dL AST (17-59) U/L ALT (21-72) U/L Alkaline Phosphatase (38-126) U/L Total Protein (6.3-8.2) g/dL Albumin (3.5-5.0) g/dL Amylase (30-110) U/L Lipase (23-300) U/L Serum Alcohol mg/dL Blood Type Blood Type Recheck Bld Type Recheck Status Antibody Screen Spec Expiration Date Disposition Clinical Impression: Hematemesis Disposition: ADMITTED IP TO THIS [facility] Condition: Good Is patient prescribed a controlled substance at d/c from ED?: No Decision Date: 04/13/19 Decision Time: 09:13
[2019-04-13 07:33] LABS: Anisocytosis Slight; Basophils # (A) 0.1 k/uL (0-0.2); Basophils % (A) 1 %; Eosinophils # (A) 0.1 k/uL (0-0.7); Eosinophils % (A) 1 %; HCT 35.3 % (39.0-53.0); Hypochromasia Marked; Lymphocytes # (A) 2.1 k/uL (1.0-4.8); Lymphocytes % (A) 39 %; MCH 26.1 pg (25.0-35.0); MCHC 31.1 g/dL (31.0-37.0); Mean Platelet Volume 6.3; Monocytes # (A) 0.4 k/uL (0-1.0); Monocytes % (A) 7 %; Neutrophils # (A) 2.7 k/uL (1.3-7.7); Neutrophils % (A) 50 %; Platelet Count 252 k/uL (150-450); RDW 16.7 % (11.5-15.5); WBC 5.3 k/uL (3.8-10.6)
[2019-04-13 07:45] LABS: ALT 34 U/L (21-72); AST 80 U/L (17-59); African American GFR (CKD) >90 (>60 ml/min/1.73 sqM); Albumin 4.1 g/dL (3.5-5.0); Alkaline Phosphatase 203 U/L (38-126); Amylase 93 U/L (30-110); Anion Gap 18 mmol/L; Blood Urea Nitrogen 12 mg/dL (9-20); Calcium 9.3 mg/dL (8.4-10.2); Carbon Dioxide 23 mmol/L (22-30); Chloride 103 mmol/L (98-107); Glucose 113 mg/dL (74-99); Non-African American GFR(CKD) >90 (>60 ml/min/1.73 sqM); Potassium 4.5 mmol/L (3.5-5.1); Sodium 144 mmol/L (137-145); Total Bilirubin 0.6 mg/dL (0.2-1.3); Total Protein 8.7 g/dL (6.3-8.2)
[2019-04-13 07:49] LABS: Alcohol 198 mg/dL
--- NOTE | 2019-04-13 08:13 | XR ---
EXAMINATION TYPE: XR chest 2V DATE OF EXAM: 04/13/2019 COMPARISON: Prior chest x-ray March 11, 2019. Prior chest CT December 29, 2018. HISTORY: Vomiting and weakness. TECHNIQUE: Frontal and lateral views of the chest are obtained. FINDINGS: There is some chronic parenchymal change without suspicious new focal air space opacity, p leural effusion, or pneumothorax seen. Some right lung hyperexpansion redemonstrated. The cardiac si lhouette size remains within normal limits. Old nonunion fracture deformity left proximal humerus is redemonstrated. IMPRESSION: Chronic changes without acute pulmonary process.
[2019-04-13] MEDS ORDERED: ONDANSETRON 4 MG/2 ML VIAL IVP PRN (09:10)
[2019-04-13] MEDS ORDERED: NALOXONE 0.4 MG/ML 1 ML VIAL IV PRN (09:10)
[2019-04-13] MEDS ORDERED: ACETAMINOPHEN TAB 325 MG TAB PO PRN (09:10)
[2019-04-13 09:25] LABS: INR 1.2 (<1.2); Partial Thromboplastin Time 25.7 sec (22.0-30.0); Prothrombin Time 12.1 sec (9.0-12.0)
[2019-04-13] MEDS: SODIUM CHLORIDE 0.9% 1,000 ML IV SCH ×2 (09:29→14:57)
[2019-04-13 10:49] LABS: Appearance,Urine Clear (Clear); Bilirubin,Urine Negative (Negative); Blood,Urine Negative (Negative); Color,Urine Yellow; Glucose,Urine (UA) Negative (Negative); Ketones,Urine 1+ (Negative); Leukocyte Esterase,Urine Negative (Negative); Nitrite,Urine Negative (Negative); PH, Urine 5.5 (5.0-8.0); Protein,Urine Trace (Negative); Specific Gravity,Urine 1.021 (1.001-1.035); Urobilinogen,Urine <2.0 mg/dL (<2.0)
[2019-04-13] MEDS ORDERED: HYDROcodone/APAP 7.5-325MG 1 EACH TAB PO PRN (12:33)
--- NOTE | 2019-04-13 15:07 | P.HPIM ---
History of Present Illness 63-year-old pleasant man with known history of alcoholism in the past quit alcohol started drinking yesterday had Obese of [place] started having nausea vomiting hematemesis multiple episodes of melena. Patient's hemoglobin is 11 at this time. Patient does have history of cirrhosis does have a history of paralysis and variceal bleed in the past. Patient has a sinus tachycardia with heart rate going down to 130s. Review of Systems REVIEW OF SYSTEMS: CONSTITUTIONAL: No fever, no malaise, no fatigue. HEENT: No recent visual problems or hearing problems. Denied any sore throat. CARDIOVASCULAR: No chest pain, orthopnea, PND, no palpitations, no syncope. PULMONARY: No shortness of breath, no cough, no hemoptysis. GASTROINTESTINAL:as mentioned in HPI NEUROLOGICAL: No headaches, no weakness, no numbness. HEMATOLOGICAL: Denies any bleeding or petechiae. GENITOURINARY: Denies any burning micturition, frequency, or urgency. MUSCULOSKELETAL/RHEUMATOLOGICAL: Denies any joint pain, swelling, or any muscle pain. ENDOCRINE: Denies any polyuria or polydipsia. The rest of the 14-point review of systems is negative. Past Medical History Past Medical History: Atrial Fibrillation, Cancer, Chest Pain / Angina, COPD, CVA/TIA, Diabetes Mellitus, GERD/Reflux, GI Bleed, Hyperlipidemia, Hypertension, Pneumonia, Prostate Disorder, Pulmonary Embolus (PE) Additional Past Medical History / Comment(s): tachycardia/palpitations likely d/t alcohol withdrawal. hx of Alcoholism, chronic alcoholic cirrhosis with portal hypertension and previous history of upper and lower GI bleeding, esophageal varices, previous history of childhood seizure which he outgrew not taking any antiepileptic medication-possibly had recent seizure-2018 thought d/t alcohol withdrawal, pulmonary embolism x 2 R lung, TIA, diverticulosis, chronic lower bilateral extremity ankle edema if he walks alot, previous history of septicemia, cervical disc disease with chronic back pain with r sided sciatica, degenerative arthritis involving the lower back, tinnitus, vitamin D deficiency, iron anemia, chronic thrombocytopenia, denies MRSA, C-DIFF -2018, scoliosis, scoliosis. pt had radiation 04/28 for prostate cancer History of Any Multi-Drug Resistant Organisms: MRSA Date of last positivie culture/infection: 03/17/18 MDRO Source:: stomach Past Surgical History: Appendectomy, Cholecystectomy Additional Past Surgical History / Comment(s): EGDs/esophageal varicies bandings, colonoscopies. Past Anesthesia/Blood Transfusion Reactions: No Reported Reaction Additional Past Anesthesia/Blood Transfusion Reaction / Comment(s): after appendix removed sob Past Psychological History: Anxiety, Depression Smoking Status: Never smoker Past Alcohol Use History: Abuse, Daily, Heavy Past Drug Use History: None Reported - Past Family History Mother Family Medical History: COPD, CVA/TIA, Dementia Additional Family Medical History / Comment(s): from a stroke Father Family Medical History: Pneumonia Additional Family Medical History / Comment(s): Father of pneumonia when he was close to 80 yrs old. Medications and Allergies Home Medications Medication Instructions Recorded Confirmed Type cloNIDine HCL [Catapres] 0.1 mg PO BID #60 tab 03/26/18 04/13/19 Rx Ferrous Sulfate [Iron (65 MG 325 mg PO DAILY 04/24/18 04/13/19 History Elemental)] metFORMIN HCL [Glucophage] 500 mg PO BID 10/19/18 04/13/19 History Sucralfate [Carafate] 1 gm PO AC-TID 30 Days #90 tab 10/24/18 04/13/19 Rx Magnesium Oxide [Mag-Ox] 400 mg PO DAILY #20 tablet 11/01/18 04/13/19 Rx Pantoprazole Sodium [Protonix] 40 mg PO BID #60 tablet. 11/04/18 04/13/19 Rx Multivitamins, Thera [Multivitamin 1 tab PO DAILY 12/12/18 04/13/19 History (formulary)] Budesonide-Formot 160-4.5 Mcg 2 puff INHALATION RT-BID #1 inh 12/15/18 04/13/19 Rx [Symbicort 160-4.5 Mcg Inhaler] Folic Acid 1 mg PO AC-LUNCH #30 tab 12/15/18 04/13/19 Rx Thiamine Mononitrate (Vit B1) 100 mg PO DAILY@1200 12/29/18 04/13/19 History [Vitamin B-1] Acetaminophen Tab [Tylenol] 500 mg PO Q6HR tab 02/08/19 04/13/19 Rx INSULIN LISPRO (HumaLOG) [humaLOG] 0 unit SQ ACHS #1 vial 03/15/19 04/13/19 Rx LORazepam [Ativan] 1 mg PO Q8H PRN 3 Days #9 tab 03/15/19 04/13/19 Rx Ondansetron Odt [Zofran Odt] 4 mg PO Q8HR PRN #10 tab 03/26/19 04/13/19 Rx Amitriptyline HCl [Elavil] 25 mg PO HS 04/13/19 04/13/19 History HYDROcodone/APAP 7.5-325MG [[place] 1 tab PO BID PRN 04/13/19 04/13/19 History 7.5-325] Allergies Allergy/AdvReac Type Severity Reaction Status Date / Time adhesive tape Allergy Rash/Hives Verified 04/13/19 09:25 latex Allergy Unknown Verified 04/13/19 09:25 egg AdvReac Nausea & Verified 04/13/19 09:25 Vomiting lisinopril AdvReac EYES Verified 04/13/19 09:25 BURN&ITCH/WEAKNESS tomato AdvReac Nausea & Verified 04/13/19 09:25 Vomiting & Diarrhea Physical Exam Vitals: Vital Signs Temp Pulse Pulse Resp BP BP Pulse Ox 04/13/19 12:18 98.3 F 133 H 17 133/85 93 L 04/13/19 11:59 97.2 F L 131 H 18 172/94 97 04/13/19 09:23 86 16 141/76 99 04/13/19 06:42 98 F 130 H 18 114/88 98 Intake and Output 04/12/19 04/13/19 04/13/19 22:59 06:59 14:59 Intake Total 240 Balance 240 Intake: Intake, IV Titration 240 Amount Sodium Chloride 0.9% 1, 240 000 ml @ 100 mls/hr IV . Q10H [facility] Rx#:[id number] Other: Voiding Method Toilet Weight 72.575 kg 72.575 kg PHYSICAL EXAMINATION: GENERAL: The patient is alert and oriented x3, not in any acute distress. Well developed, well nourished. HEENT: Pupils are round and equally reacting to light. EOMI. No scleral icterus. No conjunctival pallor. Normocephalic, atraumatic. No pharyngeal erythema. No thyromegaly. CARDIOVASCULAR: S1 and S2 present. No murmurs, rubs, or gallops. tachycardic PULMONARY: Chest is clear to auscultation, no wheezing or crackles. ABDOMEN: Soft, nontender, nondistended, normoactive bowel sounds. No palpable organomegaly. MUSCULOSKELETAL: No joint swelling or deformity. EXTREMITIES: No cyanosis, clubbing, or pedal edema. NEUROLOGICAL: Gross neurological examination did not reveal any focal deficits. SKIN: No rashes. Results CBC & Chem 7: 04/13/19 07:12 04/13/19 07:12 Labs: Abnormal Lab Results - Last 24 Hours (Table) 04/13/19 04/13/19 04/13/19 Range/Units 07:12 07:12 07:12 RBC 4.20 L (4.30-5.90) m/uL Hgb 11.0 L (13.0-17.5) gm/dL Hct 35.3 L (39.0-53.0) % RDW 16.7 H (11.5-15.5) % PT 12.1 H (9.0-12.0) sec INR 1.2 H (<1.2) Glucose 113 H (74-99) mg/dL AST 80 H (17-59) U/L Alkaline Phosphatase 203 H (38-126) U/L Total Protein 8.7 H (6.3-8.2) g/dL Urine Protein (Negative) Urine Ketones (Negative) 04/13/19 Range/Units 10:00 RBC (4.30-5.90) m/uL Hgb (13.0-17.5) gm/dL Hct (39.0-53.0) % RDW (11.5-15.5) % PT (9.0-12.0) sec INR (<1.2) Glucose (74-99) mg/dL AST (17-59) U/L Alkaline Phosphatase (38-126) U/L Total Protein (6.3-8.2) g/dL Urine Protein Trace H (Negative) Urine Ketones 1+ H (Negative) Thrombosis Risk Factor Assmnt - Choose All That Apply Each Factor Represents 1 point: Abnormal pulmonary function (COPD), Varicose veins Each Risk Factor Represents 2 Points: Age 61-74 years Each Risk Factor Represents 3 Points: History of DVT/PE Thrombosis Risk Factor Assessment Total Risk Factor Score: 7 Thrombosis Risk Factor Assessment Level: High Risk Assessment and Plan Plan: -acute GI bleed: Possibly of peptic is a disease orvariceal bleed patient will be continued on Protonix allied Rocephin because of possibility of variceal bleed gastric body was consulted patient's IV fluids will be increased to 100 mL/h. Patient has an acute upper GI bleed.because of the variceal bleed , add Rocephin. -Sinus tachycardia: Secondary to severe intravascular volume depletion from GI bleed and the reflex tachycardia from clonidine. As patient's blood pressure is not that high I'll switch him to metoprolol 50 twice a day discontinue clonidine. -History of cirrhosis patient doesn't have any significant ascites at this time so ration should be okay with IV fluids which will be increased to 100 mL per hour -history of chronic A. fib presently sinus rhythm tachycardic metoprolol as mentioned above - COPD without any acute exacerbation -type 2 diabetes mellitus patient was started on sliding scale insulin metformin will be held -History of seizures probably alcohol withdrawal seizures in the past
[2019-04-13] MEDS: MORPHINE SULFATE 4 MG/ML SYRINGE IVP PRN ×2 (16:00→20:33)
[2019-04-13] MEDS ORDERED: cloNIDine HCL 0.1 MG TAB PO SCH (16:00)
[2019-04-13] MEDS: METOPROLOL TARTRATE 50 MG TAB PO SCH ×2 (16:05→21:52)
[2019-04-13 17:07] LABS: Glucose,Whole Blood 135 mg/dL (75-99)
[2019-04-13] MEDS: INSULIN ASPART (NovoLOG) 100 UNIT/ML VIAL SQ SCH ×2 (17:14→21:51)
[2019-04-13] MEDS: SUCRALFATE 1 GM TAB PO SCH (17:15)
[2019-04-13] MEDS: SYMBICORT 160-4.5 MCG INHALER INHALATION SCH (19:02)
[2019-04-13 19:54] LABS: Glucose,Whole Blood 187 mg/dL (75-99)
[2019-04-13] MEDS ORDERED: METOPROLOL TARTRATE 50 MG TAB PO SCH (21:00)
[2019-04-13] MEDS ORDERED: PANTOPRAZOLE 40 MG TABLET PO SCH (21:00)
[2019-04-13] MEDS: PANTOPRAZOLE 40 MG/10 ML VIAL IV SCH (21:51)
[2019-04-13] MEDS: AMITRIPTYLINE HCL 25 MG TAB PO SCH (21:52)
[2019-04-14 07:08] LABS: Glucose,Whole Blood 111 mg/dL (75-99)
[2019-04-14 07:26] LABS: Anisocytosis Slight; HCT 27.1 % (39.0-53.0); Hypochromasia Marked; MCH 26.4 pg (25.0-35.0); MCHC 31.6 g/dL (31.0-37.0); MCV 83.4 fL (80.0-100.0); Mean Platelet Volume 6.8; Platelet Count 156 k/uL (150-450); RBC 3.25 m/uL (4.30-5.90); RDW 16.3 % (11.5-15.5); WBC 3.5 k/uL (3.8-10.6)
[2019-04-14 07:33] LABS: HGB 8.6 gm/dL (13.0-17.5)
--- NOTE | 2019-04-14 08:08 | P.CONS ---
History of Present Illness - Reason for Consult Consult date: 04/13/19 Hematemesis Requesting physician: Diana Riley - Chief Complaint Vomiting blood - History of Present Illness 64-year-old male with a medical history significant for alcohol abuse, alcoholic cirrhosis with esophageal varices and multiple admissions for complaints of GI bleed with the last occurring in 02/2019 who presented back to the emergency department complaining of vomiting blood. The patient had previously undergone upper endoscopy in 11/2018 significant for LA grade D reflux esophagitis but prior to that had been found to have esophageal varices requiring banding on EGD approximately a year and half ago. On his last admission he had repeat upper endoscopy which showed small to large esophageal varices with 3 bands placed over the varices. The patient has continued to consume alcohol and was found to have an alcohol level of 198 on current presentation. Hemoglobin was 11 which is above his baseline which is generally between 9 and 10 with an INR of 1.2, platelet count 252,000, WBC 5.3, total bilirubin 0.6, alkaline phosphatase 203, AST 80 and ALT 34. The patient denies any abdominal pain but has had multiple episodes of vomiting blood over the past 2 days. He also reports 2 dark bowel movements earlier in the day. Hemodynamically the patient has remained stable. Review of Systems REVIEW OF SYSTEMS: CONSTITUTIONAL: Denies any fevers, chills, weight change or fatigue. CARDIOVASCULAR: Denies any chest pain, palpitations high or low blood pressures RESPIRATORY: Denies any shortness of breath, hemoptysis or cough. GENITOURINARY: No dysuria or hematuria. MUSCULOSKELETAL: No weakness reported. SKIN: Denies any new rashes or lesions, jaundice or pallor. PSYCHIATRIC: Denies any depression or anxiety, but does have a history of alcohol abuse. NEUROLOGY: Denies headache, denies any new focal deficits. EARS/NOSE/THROAT: No recent hearing change, congestion, nasal discharge or sore throat. EYES: No pain in eyes, discharge or change in vision. GASTROINTESTINAL: As per HPI. Past Medical History Past Medical History: Atrial Fibrillation, Chest Pain / Angina, COPD, CVA/TIA, Diabetes Mellitus, GERD/Reflux, GI Bleed, Hyperlipidemia, Hypertension, Pneumonia, Prostate Disorder, Pulmonary Embolus (PE) Additional Past Medical History / Comment(s): tachycardia/palpitations likely d/t alcohol withdrawal. hx of Alcoholism, chronic alcoholic cirrhosis with portal hypertension and previous history of upper and lower GI bleeding, esophageal varices, previous history of childhood seizure which he outgrew not taking any antiepileptic medication-possibly had recent seizure-2018 thought d/t alcohol withdrawal, pulmonary embolism x 2 R lung, TIA, diverticulosis, chronic lower bilateral extremity ankle edema if he walks alot, previous history of septicemia, cervical disc disease with chronic back pain with r sided sciatica, degenerative arthritis involving the lower back, tinnitus, vitamin D deficiency, iron anemia, chronic thrombocytopenia, denies MRSA, C-DIFF -2018, scoliosis, scoliosis. pt had radiation 04/28 for prostate cancer History of Any Multi-Drug Resistant Organisms: MRSA Year Discovered:: 03/17/18 MDRO Source:: stomach Past Surgical History: Appendectomy, Cholecystectomy Additional Past Surgical History / Comment(s): EGDs/esophageal varicies yvonne ngs, colonoscopies. Past Anesthesia/Blood Transfusion Reactions: No Reported Reaction Additional Past Anesthesia/Blood Transfusion Reaction / Comm: after appendix removed sob Past Psychological History: Anxiety, Depression Additional Psychological History / Comment(s): Pt lives in an apartment alone. Apartment complex has front door ramp and has an elevator. no pets. Sometimes his sister stays with him and cleans his home. He uses a cane to ambulate at times. He drives but currently has no car. He gets to [facility] by [employer] bus. He has a nebulizer and a glucometer.pt stated he was getting [facility] home care nurse but has'nt seen them in few days,not sure if they're still coming. Used to work in [employer]. Relates that he's not been a smoker. Denies recreational drug use. His left him many years ago he has adult children that he does not see very often. No experience. No travel history. No animal exposures Smoking Status: Never smoker Past Alcohol Use History: Abuse Additional Past Alcohol Use History / Comment(s): Patient states that he has been drinking for last 2 days after having been sober for last 2 months. Past Drug Use History: None Reported - Past Family History Mother Family Medical History: COPD, CVA/TIA, Dementia Additional Family Medical History / Comment(s): from a stroke Father Family Medical History: Pneumonia Additional Family Medical History / Comment(s): Father of pneumonia when he was close to 80 yrs old. Medications and Allergies Home Medications Medication Instructions Recorded Confirmed Type cloNIDine HCL [Catapres] 0.1 mg PO BID #60 tab 03/26/18 04/13/19 Rx Ferrous Sulfate [Iron (65 MG 325 mg PO DAILY 04/24/18 04/13/19 History Elemental)] metFORMIN HCL [Glucophage] 500 mg PO BID 10/19/18 04/13/19 History Sucralfate [Carafate] 1 gm PO AC-TID 30 Days #90 tab 10/24/18 04/13/19 Rx Magnesium Oxide [Mag-Ox] 400 mg PO DAILY #20 tablet 11/01/18 04/13/19 Rx Pantoprazole Sodium [Protonix] 40 mg PO BID #60 tablet. 11/04/18 04/13/19 Rx Multivitamins, Thera [Multivitamin 1 tab PO DAILY 12/12/18 04/13/19 History (formulary)] Budesonide-Formot 160-4.5 Mcg 2 puff INHALATION RT-BID #1 inh 12/15/18 04/13/19 Rx [Symbicort 160-4.5 Mcg Inhaler] Folic Acid 1 mg PO AC-LUNCH #30 tab 12/15/18 04/13/19 Rx Thiamine Mononitrate (Vit B1) 100 mg PO DAILY@1200 12/29/18 04/13/19 History [Vitamin B-1] Acetaminophen Tab [Tylenol] 500 mg PO Q6HR tab 02/08/19 04/13/19 Rx INSULIN LISPRO (HumaLOG) [humaLOG] 0 unit SQ ACHS #1 vial 03/15/19 04/13/19 Rx LORazepam [Ativan] 1 mg PO Q8H PRN 3 Days #9 tab 03/15/19 04/13/19 Rx Ondansetron Odt [Zofran Odt] 4 mg PO Q8HR PRN #10 tab 03/26/19 04/13/19 Rx Amitriptyline HCl [Elavil] 25 mg PO HS 04/13/19 04/13/19 History HYDROcodone/APAP 7.5-325MG [[place] 1 tab PO BID PRN 04/13/19 04/13/19 History 7.5-325] Allergies Allergy/AdvReac Type Severity Reaction Status Date / Time adhesive tape Allergy Rash/Hives Verified 04/13/19 09:25 latex Allergy Unknown Verified 04/13/19 09:25 egg AdvReac Nausea & Verified 04/13/19 09:25 Vomiting lisinopril AdvReac EYES Verified 04/13/19 09:25 BURN&ITCH/WEAKNESS tomato AdvReac Nausea & Verified 04/13/19 09:25 Vomiting & Diarrhea Physical Exam Vitals: Vital Signs Temp Pulse Resp BP Pulse Ox 04/13/19 09:23 86 16 141/76 99 04/13/19 06:42 98 F 130 H 18 114/88 98 Intake and Output 04/12/19 04/13/19 04/13/19 22:59 06:59 14:59 Other: Voiding Method Toilet Weight 72.575 kg 72.575 kg On physical examination, patient appears comfortable in no apparent distress. HEAD: Normocephalic, atraumatic. EYES: No scleral icterus. No conjunctival injection. MOUTH: No lesions, tongue midline. NECK: Trachea midline, no gross abnormalities. CHEST: Clear to auscultation with no wheezing or rhonchi appreciated. HEART: S1-S2 appreciated no murmurs appreciated. ABDOMEN: Soft. Bowel sounds are positive. No organomegaly. No guarding or rigidity. EXTREMITIES: No pedal edema. SKIN: No rashes, no jaundice. NEUROLOGIC: Alert and oriented x3. No focal deficits. Results CBC & Chem 7: 04/14/19 06:26 04/13/19 07:12 Labs: Abnormal Lab Results - Last 24 Hours (Table) 04/13/19 04/13/19 04/13/19 Range/Units 07:12 07:12 07:12 RBC 4.20 L (4.30-5.90) m/uL Hgb 11.0 L (13.0-17.5) gm/dL Hct 35.3 L (39.0-53.0) % RDW 16.7 H (11.5-15.5) % PT 12.1 H (9.0-12.0) sec INR 1.2 H (<1.2) Glucose 113 H (74-99) mg/dL AST 80 H (17-59) U/L Alkaline Phosphatase 203 H (38-126) U/L Total Protein 8.7 H (6.3-8.2) g/dL Urine Protein (Negative) Urine Ketones (Negative) 04/13/19 Range/Units 10:00 RBC (4.30-5.90) m/uL Hgb (13.0-17.5) gm/dL Hct (39.0-53.0) % RDW (11.5-15.5) % PT (9.0-12.0) sec INR (<1.2) Glucose (74-99) mg/dL AST (17-59) U/L Alkaline Phosphatase (38-126) U/L Total Protein (6.3-8.2) g/dL Urine Protein Trace H (Negative) Urine Ketones 1+ H (Negative) Chest x-ray: report reviewed (Chronic changes without acute pulmonary process on chest x-ray) Assessment and Plan (1) Hematemesis Narrative/Plan: 64-year-old male with a medical history significant for alcohol abuse and esophageal varices presented to the hospital with complaints of hematemesis. Hemodynamically patient has remained stable with normal blood pressure but did have further episodes of melanotic stool after presentation. Patient last underwent EGD on 03/13/20 1990s found to have small and large esophageal varices treated with esophageal band ligation. He is continued to drink alcohol and had further episodes of hematemesis prior to admission. Unknown etiology, may be secondary to esophageal varices, peptic ulcer disease, previously noted esophagitis, portal hypertensive gastropathy or other etiology. Current Visit: Yes Status: Acute Code(s): K92.0 - HEMATEMESIS SNOMED Code(s): 7809274 (2) Acute GI bleeding Current Visit: No Status: Acute Code(s): K92.2 - GASTROINTESTINAL HEMORRHAGE, UNSPECIFIED SNOMED Code(s): 49234436 (3) Acute blood loss anemia Current Visit: No Status: Acute Code(s): D62 - ACUTE POSTHEMORRHAGIC ANEMIA SNOMED Code(s): 008320880 (4) Esophageal varices Current Visit: No Status: Acute Code(s): I85.00 - ESOPHAGEAL VARICES WITHOUT BLEEDING SNOMED Code(s): 98368819 (5) Melena Current Visit: No Status: Acute Code(s): K92.1 - MELENA SNOMED Code(s): 1475798 Plan: Supportive care Clear liquid diet Continue Protonix 40 mg twice daily Continue ceftriaxone therapy for SBP prophylaxis Consideration for initiation of octreotide therapy Alcohol cessation Continue to monitor for signs or symptoms of alcohol withdrawal Continue to monitor hemoglobin and hematocrit and transfuse as needed Tentative plan for upper endoscopy for further evaluation, timing to be d etermined Thank you for allowing us to participate in the care of the patient we will continue to follow
[2019-04-14] MEDS: SYMBICORT 160-4.5 MCG INHALER INHALATION SCH ×2 (08:25→19:52)
[2019-04-14] MEDS ORDERED: PANTOPRAZOLE 40 MG/10 ML VIAL IV SCH (09:00)
[2019-04-14] MEDS: INSULIN ASPART (NovoLOG) 100 UNIT/ML VIAL SQ SCH ×4 (09:07→20:18)
[2019-04-14] MEDS: PANTOPRAZOLE 40 MG/10 ML VIAL IV SCH ×2 (09:16→20:18)
[2019-04-14] MEDS: METOPROLOL TARTRATE 50 MG TAB PO SCH ×2 (09:16→20:18)
[2019-04-14] MEDS: MAGNESIUM OXIDE 400 MG TAB PO SCH (09:16)
[2019-04-14] MEDS: FOLIC ACID 1 MG TAB PO SCH (09:16)
[2019-04-14] MEDS: SUCRALFATE 1 GM TAB PO SCH ×3 (09:23→16:17)
[2019-04-14] MEDS: MULTIVITAMINS, THERA 1 EACH TAB PO SCH (09:23)
[2019-04-14 11:35] LABS: Glucose,Whole Blood 109 mg/dL (75-99)
--- NOTE | 2019-04-14 12:31 | P.PN ---
Subjective 63-year-old male is admitted for upper GI bleed possibly secondary to variceal bleed or peptic ulcer disease. Patient is on Rocephin and Protonix for this. Patient is presently not on octreotide does not appear to have any GI bleed today patient had multiple dark stools yesterday. Constitutional: Denied any fatigue denied any fever. Cardio vascular: denied any chest pain, palpitations Gastrointestinal denied any nausea vomiting Pulmonary: Denied any shortness of breath cough Neurologic denied any new focal deficits All inpatient medications were reviewed and appropriate changes in these medications as dictated in the interval history and assessment and plan. Objective - Vital Signs Vital signs: Vital Signs Temp 97.6 F 04/14/19 11:56 Pulse 71 04/14/19 11:56 Resp 16 04/14/19 11:56 BP 114/72 04/14/19 11:56 Pulse Ox 97 04/14/19 11:56 Intake & Output 04/13/19 04/14/19 04/14/19 18:59 06:59 18:59 Intake Total 240 1100 Balance 240 1100 Weight 72.575 kg Intake: Intake, IV Titration 240 1100 Amount Sodium Chloride 0.9% 1, 240 1100 000 ml @ 100 mls/hr IV . Q10H [facility] Rx#:[id number] Other: Voiding Method Toilet Toilet - Exam PHYSICAL EXAMINATION: GENERAL: The patient is alert and oriented x3, not in any acute distress. Well developed, well nourished. HEENT: Pupils are round and equally reacting to light. EOMI. No scleral icterus. No conjunctival pallor. Normocephalic, atraumatic. No pharyngeal erythema. No thyromegaly. CARDIOVASCULAR: S1 and S2 present. No murmurs, rubs, or gallops. PULMONARY: Chest is clear to auscultation, no wheezing or crackles. ABDOMEN: Soft, nontender, nondistended, normoactive bowel sounds. No palpable organomegaly. MUSCULOSKELETAL: No joint swelling or deformity. EXTREMITIES: No cyanosis, clubbing, or pedal edema. NEUROLOGICAL: Gross neurological examination did not reveal any focal deficits. SKIN: No rashes. - Labs CBC & Chem 7: 04/14/19 06:26 04/13/19 07:12 Labs: Abnormal Lab Results - Last 24 Hours (Table) 04/13/19 04/13/19 04/14/19 Range/Units 17:06 19:52 06:26 WBC 3.5 L (3.8-10.6) k/uL RBC 3.25 L (4.30-5.90) m/uL Hgb 8.6 L D (13.0-17.5) gm/dL Hct 27.1 L (39.0-53.0) % RDW 16.3 H (11.5-15.5) % POC Glucose (mg/dL) 135 H 187 H (75-99) mg/dL 04/14/19 04/14/19 Range/Units 07:06 11:21 WBC (3.8-10.6) k/uL RBC (4.30-5.90) m/uL Hgb (13.0-17.5) gm/dL Hct (39.0-53.0) % RDW (11.5-15.5) % POC Glucose (mg/dL) 111 H 109 H (75-99) mg/dL Assessment and Plan Plan: -acute GI bleed: Possibly of peptic is a disease or variceal bleed patient will be continued on Protonix allied Rocephin because of possibility of variceal bleed gastric body was consulted patient's can you with the IV fluids no more evidence of GI bleed at this time -Sinus tachycardia: Secondary to severe intravascular volume depletion from GI bleed and the reflex tachycardia from clonidine. Improved now -History of cirrhosis patient doesn't have any significant ascites at this time so ration should be okay with IV fluids which will be increased to 100 mL per hour -history of chronic A. fib presently sinus rhythm tachycardic metoprolol as mentioned above - COPD without any acute exacerbation -type 2 diabetes mellitus patient was started on sliding scale insulin metformin will be held -History of seizures probably alcohol withdrawal seizures in the past
[2019-04-14] MEDS: SODIUM CHLORIDE 0.9% 1,000 ML IV SCH (16:19)
[2019-04-14 16:55] LABS: Glucose,Whole Blood 95 mg/dL (75-99)
[2019-04-14] MEDS: MORPHINE SULFATE 4 MG/ML SYRINGE IVP PRN (19:24)
[2019-04-14 19:28] LABS: Glucose,Whole Blood 152 mg/dL (75-99)
[2019-04-14] MEDS: AMITRIPTYLINE HCL 25 MG TAB PO SCH (20:18)
[2019-04-15] MEDS: SODIUM CHLORIDE 0.9% 1,000 ML IV SCH ×3 (04:31→22:47)
[2019-04-15 06:57] LABS: Glucose,Whole Blood 90 mg/dL (75-99)
[2019-04-15] MEDS: INSULIN ASPART (NovoLOG) 100 UNIT/ML VIAL SQ SCH ×4 (07:14→20:21)
[2019-04-15 07:28] LABS: Anisocytosis Slight; HCT 29.4 % (39.0-53.0); Hypochromasia Moderate; MCH 25.7 pg (25.0-35.0); MCHC 30.6 g/dL (31.0-37.0); MCV 84.1 fL (80.0-100.0); Mean Platelet Volume 8.5; Platelet Count 138 k/uL (150-450); RDW 16.9 % (11.5-15.5); WBC 3.1 k/uL (3.8-10.6)
[2019-04-15 07:41] LABS: African American GFR (CKD) >90 (>60 ml/min/1.73 sqM); Anion Gap 7 mmol/L; Blood Urea Nitrogen 10 mg/dL (9-20); Calcium 8.6 mg/dL (8.4-10.2); Carbon Dioxide 28 mmol/L (22-30); Chloride 107 mmol/L (98-107); Glucose 94 mg/dL (74-99); Non-African American GFR(CKD) >90 (>60 ml/min/1.73 sqM); Potassium 3.7 mmol/L (3.5-5.1); Sodium 142 mmol/L (137-145)
[2019-04-15] MEDS: SYMBICORT 160-4.5 MCG INHALER INHALATION SCH ×2 (09:24→20:08)
[2019-04-15] MEDS: SUCRALFATE 1 GM TAB PO SCH ×3 (09:26→17:21)
[2019-04-15] MEDS: METOPROLOL TARTRATE 50 MG TAB PO SCH ×2 (09:27→20:21)
[2019-04-15] MEDS: MULTIVITAMINS, THERA 1 EACH TAB PO SCH (09:27)
[2019-04-15] MEDS: MAGNESIUM OXIDE 400 MG TAB PO SCH (09:27)
[2019-04-15] MEDS: PANTOPRAZOLE 40 MG/10 ML VIAL IV SCH ×2 (09:27→20:21)
[2019-04-15 11:27] LABS: Glucose,Whole Blood 76 mg/dL (75-99)
[2019-04-15] MEDS: FOLIC ACID 1 MG TAB PO SCH (12:39)
--- NOTE | 2019-04-15 13:39 | P.PN ---
Subjective Progress Note Date: 04/15/19 Principal diagnosis: Acute GI bleed Mr. Aguilar is a 63-year-old male with a past medical history of atrial fibrillation, CVA/TIA, diabetes mellitus, GERD, hyperlipidemia, hypertension coming in with hematemesis and multiple episodes of melena. On 04/15/2019 - His hemoglobin at the time of admission was 11 and this morning it is ~ 9. Patient did not require any blood transfusions. He mentions that his last bowel movement was yesterday morning and did not have any bowel mo vements since then. Patient denies having any nausea or vomiting. He denies having any abdominal pain. No fever chills or rigors. No chest pain or palpitations. No cough or difficulty in breathing. No dysuria or hematuria. Patient mentions that C feels much better than when he came in. Patient's medications and labs have been reviewed. Active Medications Hydrocodone Bitart/Acetaminophen ([place] 7.5-325) 1 each PO BID PRN PRN Reason: Moderate Pain Amitriptyline HCl (Elavil) 25 mg PO HS [facility] Last Admin: 04/14/19 20:18 Dose: 25 mg Documented by: Budesonide/Formoterol Fumarate (Symbicort 160-4.5 Mcg Inhaler) 2 puff INHALATION RT-BID [facility] Last Admin: 04/15/19 09:24 Dose: 2 puff Documented by: Folic Acid (Folic Acid) 1 mg PO AC-LUNCH [facility] Last Admin: 04/15/19 12:39 Dose: 1 mg Documented by: Sodium Chloride (Saline 0.9%) 1,000 mls @ 100 mls/hr IV .Q10H [facility] Last Admin: 04/15/19 09:31 Dose: 100 mls/hr Documented by: Ceftriaxone Sodium 1 gm/ (Sodium Chloride) 50 mls @ 100 mls/hr IVPB Q24HR [facility] Last Admin: 04/15/19 09:27 Dose: 100 mls/hr Documented by: Insulin Aspart (Novolog) 0 unit SQ ACHS [facility]; Protocol Last Admin: 04/15/19 12:39 Dose: Not Given Documented by: Magnesium Oxide (Mag-Ox) 400 mg PO DAILY [facility] Last Admin: 04/15/19 09:27 Dose: 400 mg Documented by: Metoprolol Tartrate (Lopressor) 50 mg PO BID [facility] Last Admin: 04/15/19 09:27 Dose: 50 mg Documented by: Morphine Sulfate (Morphine Sulfate (Inj)) 4 mg IVP Q4HR PRN PRN Reason: SEVERE Pain Last Admin: 04/14/19 19:24 Dose: 4 mg Documented by: Multivitamins (Theragran) 1 each PO DAILY [facility] Last Admin: 04/15/19 09:27 Dose: 1 each Documented by: Naloxone HCl (Narcan) 0.2 mg IV Q2M PRN PRN Reason: Opioid Reversal Ondansetron HCl (Zofran) 4 mg IVP Q8HR PRN PRN Reason: Nausea And Vomiting Last Admin: 04/13/19 09:29 Dose: 4 mg Documented by: Pantoprazole Sodium (Protonix) 40 mg IV BID [facility] Last Admin: 04/15/19 09:27 Dose: 40 mg Documented by: Sucralfate (Carafate) 1 gm PO AC-TID [facility] Last Admin: 04/15/19 12:39 Dose: 1 gm Documented by: Objective - Vital Signs Vital signs: Vital Signs Temp 97.8 F 04/15/19 12:53 Pulse 76 04/15/19 12:53 Resp 18 04/15/19 12:53 BP 145/88 04/15/19 12:53 Pulse Ox 98 04/15/19 12:53 Intake & Output 04/14/19 04/15/19 04/15/19 18:59 06:59 18:59 Intake Total 450 1700 Balance 450 1700 Intake: Intake, IV Titration 100 1200 Amount Sodium Chloride 0.9% 1, 1200 000 ml @ 100 mls/hr IV . Q10H [facility] Rx#:[id number] cefTRIAXone 1 gm In 100 Sodium Chloride 0.9% 50 ml @ 100 mls/hr IVPB Q24HR [facility] Rx#:[id number] Oral 350 500 Other: Voiding Method Toilet Toilet # Voids 4 1 - Exam PHYSICAL EXAMINATION: GENERAL: The patient is alert and oriented x3, not in any acute distress. Well d eveloped, well nourished. HEENT: Pupils are round and equally reacting to light. No pallor. No icterus. CARDIOVASCULAR: S1 and S2 present. No murmurs, rubs, or gallops. tachycardic PULMONARY: Chest is clear to auscultation, no wheezing or crackles. ABDOMEN: Soft, nontender, slightly distended , normoactive bowel sounds. MUSCULOSKELETAL: No joint swelling or deformity. EXTREMITIES: No cyanosis, clubbing, or pedal edema. NEUROLOGICAL: Gross neurological examination did not reveal any focal deficits. SKIN: No rashes. - Labs CBC & Chem 7: 04/15/19 07:09 04/15/19 07:09 Labs: Abnormal Lab Results - Last 24 Hours (Table) 04/14/19 04/15/19 Range/Units 19:26 07:09 WBC 3.1 L (3.8-10.6) k/uL RBC 3.50 L (4.30-5.90) m/uL Hgb 9.0 L (13.0-17.5) gm/dL Hct 29.4 L (39.0-53.0) % MCHC 30.6 L (31.0-37.0) g/dL RDW 16.9 H (11.5-15.5) % Plt Count 138 L (150-450) k/uL POC Glucose (mg/dL) 152 H (75-99) mg/dL Assessment and Plan Assessment: ASSESSMENT Acute GI bleed Alcohol liver cirrhosis Chronic atrial fibrillation COPD without exacerbation Type 2 diabetes mellitus History of seizures Hypertension Hyperlipidemia CVA/TIA GERD/reflux Chronic thrombocytopenia PLAN: Patient does not have any more episodes of hematemesis or black colored stool. Patient's hemoglobin has been stable. Continue with IV Protonix and IV fluids. Patient has history of for chronic atrial fibrillation but was not on anticoagulation currently is in sinus rhythm. GI on board and planning for endoscopy tomorrow morning. Patient will be kept nothing by mouth tonight for the procedure. Further recommendations to follow depending on the progress of the patient.
[2019-04-15 16:54] LABS: Glucose,Whole Blood 75 mg/dL (75-99)
--- NOTE | 2019-04-15 17:51 | P.PN ---
Subjective Progress Note Date: 04/14/19 Principal diagnosis: Upper GI bleed, hematemesis, history of esophageal varices Patient seen sitting in bed. No further vomiting of blood. Patient has tolerated liquids. No further melanotic stool since yesterday. Objective - Vital Signs Vital signs: Vital Signs Temp 96.7 F L 04/14/19 05:00 Pulse 87 04/14/19 05:00 Resp 18 04/14/19 05:00 BP 130/75 04/14/19 05:00 Pulse Ox 93 L 04/14/19 05:00 Intake & Output 04/13/19 04/14/19 04/14/19 18:59 06:59 18:59 Intake Total 240 1100 Balance 240 1100 Weight 72.575 kg Intake: Intake, IV Titration 240 1100 Amount Sodium Chloride 0.9% 1, 240 1100 000 ml @ 100 mls/hr IV . Q10H [facility] Rx#:[id number] Other: Voiding Method Toilet Toilet - Exam On physical examination, patient appears comfortable in no apparent distress. HEAD: Normocephalic, atraumatic. EYES: No scleral icterus. No conjunctival injection. MOUTH: No lesions, tongue midline. NECK: Trachea midline, no gross abnormalities. ABDOMEN: Soft. Bowel sounds are positive. No organomegaly. No guarding or rigidity. EXTREMITIES: No pedal edema. SKIN: No rashes, no jaundice. NEUROLOGIC: Alert and oriented x3. No focal deficits. - Labs CBC & Chem 7: 04/15/19 07:09 04/15/19 07:09 Labs: Abnormal Lab Results - Last 24 Hours (Table) 04/13/19 04/13/19 04/14/19 Range/Units 17:06 19:52 06:26 WBC 3.5 L (3.8-10.6) k/uL RBC 3.25 L (4.30-5.90) m/uL Hgb 8.6 L D (13.0-17.5) gm/dL Hct 27.1 L (39.0-53.0) % RDW 16.3 H (11.5-15.5) % POC Glucose (mg/dL) 135 H 187 H (75-99) mg/dL 04/14/19 Range/Units 07:06 WBC (3.8-10.6) k/uL RBC (4.30-5.90) m/uL Hgb (13.0-17.5) gm/dL Hct (39.0-53.0) % RDW (11.5-15.5) % POC Glucose (mg/dL) 111 H (75-99) mg/dL Assessment and Plan (1) Hematemesis Narrative/Plan: 64-year-old male with a medical history significant for alcohol abuse and esoph ageal varices presented to the hospital with complaints of hematemesis. Hemodynamically patient has remained stable with normal blood pressure but did have further episodes of melanotic stool after presentation. Patient last underwent EGD on 03/13/2019 and was found to have small and large esophageal varices treated with esophageal band ligation. Unknown etiology, may be secondary to esophageal varices, peptic ulcer disease, previously noted esophagitis, portal hypertensive gastropathy or other etiology. Current Visit: Yes Status: Acute Code(s): K92.0 - HEMATEMESIS SNOMED Code(s): 0043825 (2) Acute GI bleeding Current Visit: No Status: Acute Code(s): K92.2 - GASTROINTESTINAL HEMORRHAGE, UNSPECIFIED SNOMED Code(s): 93957536 (3) Acute blood loss anemia Current Visit: No Status: Acute Code(s): D62 - ACUTE POSTHEMORRHAGIC ANEMIA SNOMED Code(s): 778548605 (4) Esophageal varices Current Visit: No Status: Acute Code(s): I85.00 - ESOPHAGEAL VARICES WITHOUT BLEEDING SNOMED Code(s): 91897046 (5) Melena Current Visit: No Status: Acute Code(s): K92.1 - MELENA SNOMED Code(s): 7405194 Plan: Supportive care Clear liquid diet Continue Protonix 40 mg twice daily Continue ceftriaxone therapy for SBP prophylaxis Consideration for initiation of octreotide therapy Alcohol cessation Continue to monitor for signs or symptoms of alcohol withdrawal Continue to monitor hemoglobin and hematocrit and transfuse as needed Plan for EGD on 04/16/2019 for further evaluation Thank you for allowing us to participate in the care of the patient we will continue to follow
--- NOTE | 2019-04-15 17:52 | P.PN ---
Subjective Progress Note Date: 04/15/19 Principal diagnosis: Upper GI bleed, hematemesis, history of esophageal varices Patient seen sitting in bed he has tolerated a liquid diet. No abdominal pain. Did have some nausea this morning with dry heaving but no vomiting. No further melanotic stool. Objective - Vital Signs Vital signs: Vital Signs Temp 97.8 F 04/15/19 12:53 Pulse 76 04/15/19 12:53 Resp 18 04/15/19 12:53 BP 145/88 04/15/19 12:53 Pulse Ox 98 04/15/19 12:53 Intake & Output 04/14/19 04/15/19 04/15/19 18:59 06:59 18:59 Intake Total 450 1700 800 Balance 450 1700 800 Intake: Intake, IV Titration 100 1200 800 Amount Sodium Chloride 0.9% 1, 1200 750 000 ml @ 100 mls/hr IV . Q10H [facility] Rx#:[id number] cefTRIAXone 1 gm In 100 50 Sodium Chloride 0.9% 50 ml @ 100 mls/hr IVPB Q24HR [facility] Rx#:[id number] Oral 350 500 Other: Voiding Method Toilet Toilet # Voids 4 1 - Exam On physical examination, patient appears comfortable in no apparent distress. HEAD: Normocephalic, atraumatic. EYES: No scleral icterus. No conjunctival injection. MOUTH: No lesions, tongue midline. NECK: Trachea midline, no gross abnormalities. ABDOMEN: Soft. Bowel sounds are positive. No organomegaly. No guarding or rigidity. EXTREMITIES: No pedal edema. SKIN: No rashes, no jaundice. NEUROLOGIC: Alert and oriented x3. No focal deficits. - Labs CBC & Chem 7: 04/15/19 07:09 04/15/19 07:09 Labs: Abnormal Lab Results - Last 24 Hours (Table) 04/14/19 04/15/19 Range/Units 19:26 07:09 WBC 3.1 L (3.8-10.6) k/uL RBC 3.50 L (4.30-5.90) m/uL Hgb 9.0 L (13.0-17.5) gm/dL Hct 29.4 L (39.0-53.0) % MCHC 30.6 L (31.0-37.0) g/dL RDW 16.9 H (11.5-15.5) % Plt Count 138 L (150-450) k/uL POC Glucose (mg/dL) 152 H (75-99) mg/dL Assessment and Plan (1) Hematemesis Narrative/Plan: 64-year-old male with a medical history significant for alcohol abuse and esophageal varices presented to the hospital with complaints of hematemesis. H emodynamically patient has remained stable with normal blood pressure but did have further episodes of melanotic stool after presentation. Patient last underwent EGD on 03/13/2019 and was found to have small and large esophageal varices treated with esophageal band ligation. Unknown etiology, may be secondary to esophageal varices, peptic ulcer disease, previously noted esophagitis, portal hypertensive gastropathy or other etiology. Current Visit: Yes Status: Acute Code(s): K92.0 - HEMATEMESIS SNOMED Code(s): 4372923 (2) Acute GI bleeding Current Visit: No Status: Acute Code(s): K92.2 - GASTROINTESTINAL HEMORRHAGE, UNSPECIFIED SNOMED Code(s): 18488816 (3) Acute blood loss anemia Current Visit: No Status: Acute Code(s): D62 - ACUTE POSTHEMORRHAGIC ANEMIA SNOMED Code(s): 411092580 (4) Esophageal varices Current Visit: No Status: Acute Code(s): I85.00 - ESOPHAGEAL VARICES WITHOUT BLEEDING SNOMED Code(s): 23226395 (5) Melena Current Visit: No Status: Acute Code(s): K92.1 - MELENA SNOMED Code(s): 6502905 Plan: Supportive care Clear liquid diet, okay to advance to full liquids and nothing by mouth after midnight Continue Protonix 40 mg twice daily Continue ceftriaxone therapy for SBP prophylaxis Consideration for initiation of octreotide therapy Alcohol cessation Continue to monitor for signs or symptoms of alcohol withdrawal Continue to monitor hemoglobin and hematocrit and transfuse as needed Plan for EGD on 04/16/2019 for further evaluation Thank you for allowing us to participate in the care of the patient we will continue to follow
[2019-04-15 19:31] LABS: Glucose,Whole Blood 158 mg/dL (75-99)
[2019-04-15] MEDS: MORPHINE SULFATE 4 MG/ML SYRINGE IVP PRN (20:20)
[2019-04-15] MEDS: AMITRIPTYLINE HCL 25 MG TAB PO SCH (20:21)
[2019-04-16 06:50] LABS: Glucose,Whole Blood 121 mg/dL (75-99)
[2019-04-16] MEDS: SODIUM CHLORIDE 0.9% 1,000 ML IV SCH ×3 (07:17→17:51)
[2019-04-16] MEDS: INSULIN ASPART (NovoLOG) 100 UNIT/ML VIAL SQ SCH ×4 (07:26→20:56)
[2019-04-16] MEDS: SYMBICORT 160-4.5 MCG INHALER INHALATION SCH ×2 (07:41→20:36)
[2019-04-16 07:42] LABS: Anisocytosis Slight; Basophils % (A) 0 %; Eosinophils # (A) 0.1 k/uL (0-0.7); Eosinophils % (A) 2 %; HCT 29.5 % (39.0-53.0); HGB 9.2 gm/dL (13.0-17.5); Hypochromasia Slight; Lymphocytes # (A) 0.9 k/uL (1.0-4.8); Lymphocytes % (A) 14 %; MCH 25.9 pg (25.0-35.0); MCHC 31.2 g/dL (31.0-37.0); MCV 83.1 fL (80.0-100.0); Mean Platelet Volume 7.5; Monocytes # (A) 0.3 k/uL (0-1.0); Monocytes % (A) 4 %; Neutrophils # (A) 5.5 k/uL (1.3-7.7); Neutrophils % (A) 80 %; Platelet Count 139 k/uL (150-450); RBC 3.55 m/uL (4.30-5.90); RDW 16.8 % (11.5-15.5); WBC 6.9 k/uL (3.8-10.6)
[2019-04-16 08:00] LABS: African American GFR (CKD) >90 (>60 ml/min/1.73 sqM); Anion Gap 9 mmol/L; Blood Urea Nitrogen 6 mg/dL (9-20); Calcium 8.5 mg/dL (8.4-10.2); Carbon Dioxide 24 mmol/L (22-30); Chloride 105 mmol/L (98-107); Glucose 111 mg/dL (74-99); Non-African American GFR(CKD) >90 (>60 ml/min/1.73 sqM); Potassium 3.7 mmol/L (3.5-5.1); Sodium 138 mmol/L (137-145)
[2019-04-16] MEDS: SUCRALFATE 1 GM TAB PO SCH ×3 (08:17→17:49)
[2019-04-16] MEDS: PANTOPRAZOLE 40 MG/10 ML VIAL IV SCH ×2 (08:17→20:56)
[2019-04-16] MEDS: METOPROLOL TARTRATE 50 MG TAB PO SCH ×3 (08:17→20:56)
[2019-04-16] MEDS: MORPHINE SULFATE 4 MG/ML SYRINGE IVP PRN ×3 (08:27→21:03)
[2019-04-16] MEDS: MULTIVITAMINS, THERA 1 EACH TAB PO SCH ×2 (08:43→12:04)
[2019-04-16] MEDS: MAGNESIUM OXIDE 400 MG TAB PO SCH ×2 (08:43→12:05)
[2019-04-16] MEDS ORDERED: IV FLUID CONTINUATION 1,000 ML IV ONE (10:02)
[2019-04-16] MEDS ORDERED: PROPOFOL 10 MG/ML 20 ML VIAL IV ONE (10:02)
--- NOTE | 2019-04-16 10:27 | P.PCN ---
Date of Procedure: 04/16/19 Description of Procedure: BRIEF HISTORY: 64-year-old male with a medical history significant for alcohol abuse, alcoholic cirrhosis with esophageal varices and multiple admissions for complaints of GI bleed with the last occurring in 02/2019 who presented back to the emergency department complaining of vomiting blood. The patient had previously undergone upper endoscopy in 11/2018 significant for LA grade D reflux esophagitis but prior to that had been found to have esophageal varices requiring banding on EGD approximately a year and half ago. On his last admission he had repeat upper endoscopy which showed small to large esophageal varices with 3 bands placed over the varices. The patient has continued to consume alcohol and was found to have an alcohol level of 198 on current presentation. He also reports 2 dark bowel movements earlier in the day. Hemodynamically the patient has remained stable. PROCEDURE PERFORMED: Esophagogastroduodenoscopy with band ligation of esophageal varices. PREOPERATIVE DIAGNOSIS: Anemia of acute blood loss, esophageal varices, melena, hematemesis. ESTIMATED BLOOD LOSS: Minimal. IV sedation per anesthesia. PROCEDURE: After informed consent was obtained, the patient was brought into the endoscopy unit. IV sedation was administered by Anesthesia under continuous monitoring. Initially the Olympus GIF-190 video endoscope was inserted into the mouth. Esophagus intubated without any difficulty. It was gradually advanced into the stomach and duodenum and carefully examined. The bulb and the second part of the duodenum appeared normal. The scope at this time was withdrawn to the stomach, adequately insufflated with air, and upon careful examination, mucosa of the antrum, body, cardia and the fundus appeared grossly normal except for some mild scattered erythema in the body and fundus consistent with mild portal hype rtensive gastropathy. The scope was then withdrawn into the esophagus. The GE junction was located at 39 cm from the incisors. The esophagus was significant for some moderate size mid to distal esophageal varices with 4 bands placed in a circumferential manner from the distal esophagus to the proximal esophagus. The patient tolerated the procedure well. IMPRESSION: 1. Moderate-sized esophageal varices treated with esophageal band ligation. 2. Mild portal hypertensive gastropathy. RECOMMENDATIONS: The findings of this examination were discussed with the patient. Okay to resume full liquid diet and medications. Recommend alcohol abstinence. Continue PPI therapy.
[2019-04-16 11:38] LABS: Glucose,Whole Blood 119 mg/dL (75-99)
[2019-04-16] MEDS: FOLIC ACID 1 MG TAB PO SCH (12:01)
--- NOTE | 2019-04-16 13:09 | P.PN ---
Subjective Progress Note Date: 04/16/19 Principal diagnosis: Acute GI bleed Mr. Aguilar is a 63-year-old male with a past medical history of atrial fibrillation, CVA/TIA, diabetes mellitus, GERD, hyperlipidemia, hypertension coming in with hematemesis and multiple episodes of melena. On 04/15/2019 - His hemoglobin at the time of admission was 11 and this morning it is ~ 9. Patient did not require any blood transfusions. He mentions that his last bowel movement was yesterday morning and did not have any bowel mo vements since then. Patient denies having any nausea or vomiting. He denies having any abdominal pain. No fever chills or rigors. No chest pain or palpitations. No cough or difficulty in breathing. No dysuria or hematuria. Patient mentions that C feels much better than when he came in. On 04/16/2019 - patient just had the band ligation done by Dr. Paulino this morning. Patient states that he had a very dark colored stools this morning before the procedure. Patient now complains of mild abdominal discomfort. He denies having any chest pain or palpitations. Patient's heart rate is around 120s. He did not get his metoprolol dose this morning. Patient denies having any headaches, dizziness, blurring of vision. He denies having any difficulty in breathing or cough. Patient's labs from this morning showed hemoglobin of 9.2. Patient's medications have been reviewed. Active Medications Hydrocodone Bitart/Acetaminophen ([place] 7.5-325) 1 each PO BID PRN PRN Reason: Moderate Pain Amitriptyline HCl (Elavil) 25 mg PO HS [facility] Last Admin: 04/15/19 20:21 Dose: 25 mg Documented by: Budesonide/Formoterol Fumarate (Symbicort 160-4.5 Mcg Inhaler) 2 puff INHALATION RT-BID [facility] Last Admin: 04/16/19 07:41 Dose: 2 puff Documented by: Folic Acid (Folic Acid) 1 mg PO AC-LUNCH [facility] Last Admin: 04/16/19 12:01 Dose: 1 mg Documented by: Sodium Chloride (Saline 0.9%) 1,000 mls @ 100 mls/hr IV .Q10H [facility] Last Admin: 04/16/19 08:17 Dose: 100 mls/hr Documented by: Ceftriaxone Sodium 1 gm/ (Sodium Chloride) 50 mls @ 100 mls/hr IVPB Q24HR [facility] Last Admin: 04/16/19 08:17 Dose: 100 mls/hr Documented by: Insulin Aspart (Novolog) 0 unit SQ ACHS [facility]; Protocol Last Admin: 04/16/19 11:46 Dose: Not Given Documented by: Magnesium Oxide (Mag-Ox) 400 mg PO DAILY [facility] Last Admin: 04/16/19 12:05 Dose: 400 mg Documented by: Metoprolol Tartrate (Lopressor) 50 mg PO BID [facility] Last Admin: 04/16/19 08:17 Dose: Not Given Documented by: Morphine Sulfate (Morphine Sulfate (Inj)) 4 mg IVP Q4HR PRN PRN Reason: SEVERE Pain Last Admin: 04/16/19 08:27 Dose: 4 mg Documented by: Multivitamins (Theragran) 1 each PO DAILY [facility] Last Admin: 04/16/19 12:04 Dose: 1 each Documented by: Naloxone HCl (Narcan) 0.2 mg IV Q2M PRN PRN Reason: Opioid Reversal Ondansetron HCl (Zofran) 4 mg IVP Q8HR PRN PRN Reason: Nausea And Vomiting Last Admin: 04/13/19 09:29 Dose: 4 mg Documented by: Pantoprazole Sodium (Protonix) 40 mg IV BID [facility] Last Admin: 04/16/19 08:17 Dose: 40 mg Documented by: Sucralfate (Carafate) 1 gm PO AC-TID [facility] Last Admin: 04/16/19 12:01 Dose: 1 gm Documented by: Objective - Vital Signs Vital signs: Vital Signs Temp 97.8 F 04/16/19 11:29 Pulse 122 H 04/16/19 11:29 Resp 20 04/16/19 11:29 BP 163/98 04/16/19 11:29 Pulse Ox 97 04/16/19 11:29 Intake & Output 04/15/19 04/16/19 04/16/19 18:59 06:59 18:59 Intake Total 800 1150 200 Balance 800 1150 200 Intake: IV 200 Intake, IV Titration 800 1150 Amount Sodium Chloride 0.9% 1, 750 1150 000 ml @ 100 mls/hr IV . Q10H [facility] Rx#:[id number] cefTRIAXone 1 gm In 50 Sodium Chloride 0.9% 50 ml @ 100 mls/hr IVPB Q24HR [facility] Rx#:[id number] Other: Voiding Method Toilet Toilet # Voids 2 # Bowel Movements 1 - Exam PHYSICAL EXAMINATION: GENERAL: The patient is alert and oriented x3, not in any acute distress. Well developed, well nourished. HEENT: Pupils are round and equally reacting to light. No pallor. No icterus. CARDIOVASCULAR: Tachycardia. S1 and S2 heard. PULMONARY: Chest is clear to auscultation, no wheezing or crackles. ABDOMEN: Soft. Mild tenderness in the epigastric area and also in the right upper quadrant. Bowel sounds are positive MUSCULOSKELETAL: No joint swelling or deformity. EXTREMITIES: No cyanosis, clubbing, or pedal edema. NEUROLOGICAL: Gross neurological examination did not reveal any focal deficits. SKIN: No rashes. - Labs CBC & Chem 7: 04/16/19 06:53 04/16/19 06:53 Labs: Abnormal Lab Results - Last 24 Hours (Table) 04/15/19 04/16/19 04/16/19 Range/Units 19:30 06:48 06:53 RBC 3.55 L (4.30-5.90) m/uL Hgb 9.2 L (13.0-17.5) gm/dL Hct 29.5 L (39.0-53.0) % RDW 16.8 H (11.5-15.5) % Plt Count 139 L (150-450) k/uL Lymphocytes # 0.9 L (1.0-4.8) k/uL BUN (9-20) mg/dL Glucose (74-99) mg/dL POC Glucose (mg/dL) 158 H 121 H (75-99) mg/dL 04/16/19 04/16/19 Range/Units 06:53 11:31 RBC (4.30-5.90) m/uL Hgb (13.0-17.5) gm/dL Hct (39.0-53.0) % RDW (11.5-15.5) % Plt Count (150-450) k/uL Lymphocytes # (1.0-4.8) k/uL BUN 6 L (9-20) mg/dL Glucose 111 H (74-99) mg/dL POC Glucose (mg/dL) 119 H (75-99) mg/dL Assessment and Plan Assessment: ASSESSMENT Acute GI bleed Alcohol liver cirrhosis Chronic atrial fibrillation COPD without exacerbation Type 2 diabetes mellitus History of seizures Hypertension Hyperlipidemia CVA/TIA GERD/reflux Chronic thrombocytopenia PLAN: Patient's hemoglobin is stable at 9.2 this morning. Patient had band ligation done. He is complaining of mild abdominal discomfort. Patient is tachycardic, he missed his metoprolol this morning as he was in the procedure. So we will give him his metoprolol for now. Will add telemetry. Continue with IV Protonix and IV fluids. Patient has history of for chronic atrial fibrilla tion but was not on anticoagulation currently is in sinus rhythm. Further recommendations to follow depending on the progress of the patient.
[2019-04-16 17:05] LABS: Glucose,Whole Blood 122 mg/dL (75-99)
[2019-04-16 20:45] LABS: Glucose,Whole Blood 144 mg/dL (75-99)
[2019-04-16] MEDS: AMITRIPTYLINE HCL 25 MG TAB PO SCH (20:56)
[2019-04-16 21:27] VITALS: RESP 18
[2019-04-17 06:53] LABS: Glucose,Whole Blood 111 mg/dL (75-99)
[2019-04-17] MEDS: INSULIN ASPART (NovoLOG) 100 UNIT/ML VIAL SQ SCH ×4 (07:32→20:29)
[2019-04-17] MEDS: SYMBICORT 160-4.5 MCG INHALER INHALATION SCH ×2 (07:51→19:37)
[2019-04-17 08:01] LABS: Anisocytosis Slight; Basophils % (A) 0 %; Eosinophils # (A) 0.1 k/uL (0-0.7); Eosinophils % (A) 1 %; HCT 29.7 % (39.0-53.0); HGB 9.3 gm/dL (13.0-17.5); Hypochromasia Slight; Lymphocytes # (A) 1.3 k/uL (1.0-4.8); Lymphocytes % (A) 13 %; MCH 26.2 pg (25.0-35.0); MCHC 31.4 g/dL (31.0-37.0); MCV 83.6 fL (80.0-100.0); Mean Platelet Volume 7.1; Monocytes # (A) 0.3 k/uL (0-1.0); Monocytes % (A) 3 %; Neutrophils # (A) 8.6 k/uL (1.3-7.7); Neutrophils % (A) 83 %; Platelet Count 140 k/uL (150-450); RBC 3.56 m/uL (4.30-5.90); RDW 17.2 % (11.5-15.5); WBC 10.3 k/uL (3.8-10.6)
[2019-04-17] MEDS: MAGNESIUM OXIDE 400 MG TAB PO SCH (08:13)
[2019-04-17] MEDS: METOPROLOL TARTRATE 50 MG TAB PO SCH ×2 (08:13→20:29)
[2019-04-17] MEDS: SUCRALFATE 1 GM TAB PO SCH ×3 (08:13→17:50)
[2019-04-17] MEDS: PANTOPRAZOLE 40 MG/10 ML VIAL IV SCH ×2 (08:13→20:29)
[2019-04-17] MEDS: MULTIVITAMINS, THERA 1 EACH TAB PO SCH (08:13)
[2019-04-17 11:13] LABS: Glucose,Whole Blood 111 mg/dL (75-99)
[2019-04-17] MEDS: SODIUM CHLORIDE 0.9% 1,000 ML IV SCH ×2 (14:15→19:45)
[2019-04-17] MEDS: FOLIC ACID 1 MG TAB PO SCH (14:18)
[2019-04-17 16:58] LABS: Glucose,Whole Blood 100 mg/dL (75-99)
--- NOTE | 2019-04-17 16:59 | P.PN ---
Subjective Progress Note Date: 04/17/19 this is a 64-year-old gentleman with history of atrial fibrillation, CVA/TIA, diabetes mellitus, gastroesophageal reflux disease, hyperlipidemia, hypertension, alcohol abuse and multiple other medical issues.band ligation completed by GI yesterday, tolerated procedure well.complains of mild mid epigastric discomfort.hemoglobin 9.3.denies chest pain, palpitations or shortness of breath. tachycardia improved, heart rate currently in the 90s.denies any lightheadedness, dizziness or focal deficits. Objective - Vital Signs Vital signs: Vital Signs Temp 98.3 F 04/17/19 05:00 Pulse 95 04/17/19 05:00 Resp 18 04/17/19 05:00 BP 129/86 04/17/19 05:00 Pulse Ox 94 L 04/17/19 05:00 Intake & Output 04/16/19 04/17/19 04/17/19 18:59 06:59 18:59 Intake Total 1000 1150 720 Balance 1000 1150 720 Intake: IV 200 Intake, IV Titration 800 1150 Amount Sodium Chloride 0.9% 1, 800 1150 000 ml @ 100 mls/hr IV . Q10H [facility] Rx#:[id number] Oral 720 Other: Voiding Method Toilet Toilet # Voids 2 1 # Bowel Movements 1 - Exam GENERAL: sitting up in bed,alert and oriented x3, not in any acute distress. HEENT: Pupils are round and equally reacting to light. No pallor. No icterus. CARDIOVASCULAR: Tachycardia. S1 and S2 heard. PULMONARY: Chest is clear to auscultation, no wheezing or crackles. ABDOMEN: Soft. Mild tenderness in the epigastric area and also in the right upper quadrant. Bowel sounds are positive MUSCULOSKELETAL: No joint swelling or deformity. EXTREMITIES: No cyanosis, clubbing, or pedal edema. NEUROLOGICAL: Gross neurological examination did not reveal any focal deficits. SKIN: No rashes. - Labs CBC & Chem 7: 04/17/19 07:16 04/16/19 06:53 Labs: Abnormal Lab Results - Last 24 Hours (Table) 04/16/19 04/16/19 04/17/19 Range/Units 17:02 20:43 06:51 RBC (4.30-5.90) m/uL Hgb (13.0-17.5) gm/dL Hct (39.0-53.0) % RDW (11.5-15.5) % Plt Count (150-450) k/uL Neutrophils # (1.3-7.7) k/uL POC Glucose (mg/dL) 122 H 144 H 111 H (75-99) mg/dL 04/17/19 04/17/19 Range/Units 07:16 11:11 RBC 3.56 L (4.30-5.90) m/uL Hgb 9.3 L (13.0-17.5) gm/dL Hct 29.7 L (39.0-53.0) % RDW 17.2 H (11.5-15.5) % Plt Count 140 L (150-450) k/uL Neutrophils # 8.6 H (1.3-7.7) k/uL POC Glucose (mg/dL) 111 H (75-99) mg/dL Assessment and Plan Assessment: Acute GI bleed,status post banding Alcohol liver cirrhosis Chronic atrial fibrillation COPD without exacerbation Type 2 diabetes mellitus History of seizures Hypertension Hyperlipidemia CVA/TIA GERD/reflux Chronic thrombocytopenia plan: Continue on current medication regime ,monitoring and symptomatic treatment. Close monitoring of hemoglobin with repeat labs ordered for a.m. Patient agreeable to subacute rehab with discharge planning in progress for tomorrow. The impression and plan of care has been dictated as directed. : I performed a history and examination of this patient, discussed the same with the dictator. I agree with the dictator's note ,documented as a scribe. Any additional findings or plans will be noted.
--- NOTE | 2019-04-17 18:56 | PN ---
PROGRESS NOTE DATE OF DICTATION: 04/17/2019 Patient is a 64-year-old white male with history of alcoholic cirrhosis of the liver and previous history of esophageal variceal bleeding, admitted to the hospital with acute upper GI bleed. He underwent an upper endoscopy by Dr. Hicks and was noted to have esophageal varices, and variceal ligation was performed. Patient is doing better today. He complains of some abdominal pain. No further episodes of nausea, vomiting. He did have some black tarry stool this morning. PHYSICAL EXAMINATION: He appears comfortable. No apparent distress. VITAL SIGNS: Stable. Blood pressure is 129/86, pulse rate 85, temperature 98.3. HEENT examination unremarkable. Conjunctivae pink. Sclerae anicteric. Oral cavity no lesions. NECK: No JVD or lymph node enlargement. CHEST: Clear to auscultation. HEART: Regular rate and rhythm. ABDOMEN: Soft. Mild tenderness in the epigastric area. The rest of the abdomen was benign. EXTREMITIES: No pedal edema. SKIN: No rashes. NEUROLOGIC: Alert and oriented x3. No focal deficits. LABS: Labs done today show WBC 10.3, hemoglobin 9.3, platelets 140. IMPRESSION: 1. Acute esophageal variceal bleeding, status post esophagogastroduodenoscopy with variceal ligation yesterday. Patient stable. No further episodes of bleeding. He did have some black tarry stool, probably related to old blood. Hemoglobin stable at 9.3 g/dL. 2. History of heavy alcohol abuse; quit drinking a week ago. RECOMMENDATIONS: 1. Continue with a clear liquid diet today. 2. Repeat CBC in the morning. 3. Protonix 40 mg twice daily. 4. If hemoglobin is stable tomorrow, diet can be advanced as tolerated. 5. Abstinence from alcohol, which was discussed with the patient in great length. Thank you for this consultation. MMODL / IJN: [id number] /
[2019-04-17 20:07] LABS: Glucose,Whole Blood 148 mg/dL (75-99)
[2019-04-17] MEDS: AMITRIPTYLINE HCL 25 MG TAB PO SCH (20:29)
[2019-04-18 05:21] VITALS: BP 157/92; PULSE 89; TEMP 97.6
[2019-04-18] MEDS: SODIUM CHLORIDE 0.9% 1,000 ML IV SCH (05:56)
[2019-04-18 07:05] LABS: Glucose,Whole Blood 104 mg/dL (75-99)
[2019-04-18] MEDS: SYMBICORT 160-4.5 MCG INHALER INHALATION SCH (07:24)
[2019-04-18] MEDS: PANTOPRAZOLE 40 MG/10 ML VIAL IV SCH (07:55)
[2019-04-18] MEDS: MAGNESIUM OXIDE 400 MG TAB PO SCH (07:56)
[2019-04-18] MEDS: METOPROLOL TARTRATE 50 MG TAB PO SCH (07:56)
[2019-04-18] MEDS: MULTIVITAMINS, THERA 1 EACH TAB PO SCH (07:56)
[2019-04-18] MEDS: INSULIN ASPART (NovoLOG) 100 UNIT/ML VIAL SQ SCH ×2 (07:56→12:07)
[2019-04-18] MEDS: SUCRALFATE 1 GM TAB PO SCH ×2 (07:56→13:20)
--- NOTE | 2019-04-18 09:59 | P.DS ---
Providers Date of admission: 04/14/19 12:56 Expected date of discharge: 04/18/19 Attending physician: Alexys Marcus MD Consults: 04/13/19 09:10 Consult Physician Stat Consulting Provider: Ashok Hicks Consult Reason/Comments: Hematemesis, history of varices Do you want consulting provider notified?: Yes Primary care physician: Yoon Phillips Hospital Course: Final Diagnoses: Acute GI bleed,status post banding Alcohol liver cirrhosis Chronic atrial fibrillation COPD without exacerbation Type 2 diabetes mellitus History of seizures Hypertension Hyperlipidemia CVA/TIA GERD/reflux Chronic thrombocytopenia Hospital course:this is a 64-year-old gentleman with history of atrial fibrillation, CVA/TIA, diabetes mellitus, gastroesophageal reflux disease, hyperlipidemia, hypertension, alcohol abuse and multiple other medical issues.band ligation completed by GI yesterday, tolerated procedure well.complains of mild mid epigastric discomfort.hemoglobin 9.3.denies chest pain, palpitations or shortness of breath. tachycardia improved, heart rate currently in the 90s.denies any lightheadedness, dizziness or focal deficits. Significant clinical improvement. Cleared by all consults for discharge. Naltrexone monthly IM discussed with patient. Patient agreeable to and will pursue in OP clinic once discharge from rehab. Patient is being discharged to [facility] subacute rehab in a stable condition with guarded prognosis. - Exam GENERAL: alert and oriented x3, not in any acute distress. CARDIOVASCULAR: Tachycardia. S1 and S2 heard. PULMONARY: Chest is clear to auscultation, no wheezing or crackles. ABDOMEN: Soft. Minimal midepigastric tenderness. Bowel sounds are positive NEUROLOGICAL: Gross neurological examination did not reveal any focal deficits. The impression and plan of care has been dictated as directed. : I performed a history and examination of this patient, discussed the same with the dictator. I agree with the dictator's note ,documented as a scribe. Any additional findings or plans will be noted. Patient Condition at Discharge: Stable Plan - Discharge Summary New Discharge Prescriptions: New Metoprolol Tartrate [Lopressor] 50 mg PO BID tab Continue cloNIDine HCL [Catapres] 0.1 mg PO BID #60 tab Ferrous Sulfate [Iron (65 MG Elemental)] 325 mg PO DAILY metFORMIN HCL [Glucophage] 500 mg PO BID Sucralfate [Carafate] 1 gm PO AC-TID 30 Days #90 tab Magnesium Oxide [Mag-Ox] 400 mg PO DAILY #20 tablet Pantoprazole Sodium [Protonix] 40 mg PO BID #60 tablet. Multivitaminjonna Thera [Multivitamin (formulary)] 1 tab PO DAILY Folic Acid 1 mg PO AC-LUNCH #30 tab Budesonide-Formot 160-4.5 Mcg [Symbicort 160-4.5 Mcg Inhaler] 2 puff INHALATION RT-BID #1 inh Thiamine Mononitrate (Vit B1) [Vitamin B-1] 100 mg PO DAILY@1200 Acetaminophen Tab [Tylenol] 500 mg PO Q6HR tab INSULIN LISPRO (HumaLOG) [humaLOG] 0 unit SQ ACHS #1 vial Ondansetron Odt [Zofran ODT] 4 mg PO Q8HR PRN #10 tab PRN Reason: Nausea Amitriptyline HCl [Elavil] 25 mg PO HS HYDROcodone/APAP 7.5-325MG [[place] 7.5-325] 1 tab PO BID PRN #6 tab PRN Reason: Pain Discontinued LORazepam [Ativan] 1 mg PO Q8H PRN 3 Days #9 tab PRN Reason: Anxiety Discharge Medication List cloNIDine HCL [Catapres] 0.1 mg PO BID #60 tab 03/26/18 [Rx] Ferrous Sulfate [Iron (65 MG Elemental)] 325 mg PO DAILY 04/24/18 [History] metFORMIN HCL [Glucophage] 500 mg PO BID 10/19/18 [History] Sucralfate [Carafate] 1 gm PO AC-TID 30 Days #90 tab 10/24/18 [Rx] Magnesium Oxide [Mag-Ox] 400 mg PO DAILY #20 tablet 11/01/18 [Rx] Pantoprazole Sodium [Protonix] 40 mg PO BID #60 tablet. 11/04/18 [Rx] Multivitaminjonna Thera [Multivitamin (formulary)] 1 tab PO DAILY 12/12/18 [History] Budesonide-Formot 160-4.5 Mcg [Symbicort 160-4.5 Mcg Inhaler] 2 puff INHALATION RT-BID #1 inh 12/15/18 [Rx] Folic Acid 1 mg PO AC-LUNCH #30 tab 12/15/18 [Rx] Thiamine Mononitrate (Vit B1) [Vitamin B-1] 100 mg PO DAILY@1200 12/29/18 [History] Acetaminophen Tab [Tylenol] 500 mg PO Q6HR tab 02/08/19 [Rx] INSULIN LISPRO (HumaLOG) [humaLOG] 0 unit SQ ACHS #1 vial 03/15/19 [Rx] Ondansetron Odt [Zofran ODT] 4 mg PO Q8HR PRN #10 tab 03/26/19 [Rx] Amitriptyline HCl [Elavil] 25 mg PO HS 04/13/19 [History] HYDROcodone/APAP 7.5-325MG [[place] 7.5-325] 1 tab PO BID PRN #6 tab 04/18/19 [Rx] Metoprolol Tartrate [Lopressor] 50 mg PO BID tab 04/18/19 [Rx] Follow up Appointment(s)/Referral(s): Yoon Phillips DO [Primary Care Provider] - 1 Week (After discharge from subacute rehab) Activity/Diet/Wound Care/Special Instructions: [facility] Diet: Low fiber, consistent carb Activity: As tolerated CBC, BMP in 3 days
[2019-04-18 11:18] LABS: Anisocytosis Slight; HCT 28.6 % (39.0-53.0); HGB 8.8 gm/dL (13.0-17.5); Hypochromasia Moderate; MCH 26.3 pg (25.0-35.0); MCV 84.9 fL (80.0-100.0); Mean Platelet Volume 7.5; Platelet Count 124 k/uL (150-450); RBC 3.36 m/uL (4.30-5.90); RDW 17.3 % (11.5-15.5); WBC 4.4 k/uL (3.8-10.6)
[2019-04-18 11:19] LABS: Glucose,Whole Blood 112 mg/dL (75-99)
[2019-04-18] MEDS: FOLIC ACID 1 MG TAB PO SCH (13:20)
--- NOTE | 2019-04-18 14:24 | CDI ---
Documentation Clarification Form Date: 04/18/2019 2:03:24 PM From: Deja Rojas RN, CCDS Admit Date: 04/14/2019 12:56:00 PM Patient Name: Anders Aguilar Visit Number: [id number] Discharge Date: ATTENTION: The Clinical Documentation Specialists (CDI) and [facility] Coding Staff appreciate your assistance in clarifying documentation. Please respond to the clarification below the line at the bottom and electronically sign. The CDI & [facility] Coding staff will review the response and follow-up if needed. Please note: Queries are made part of the Legal Health Record. If you have any questions, please contact the author of this message via ITS. Dr. Alexys Marcus The patient presented with nausea, vomiting and diarrhea, and complains of hematemesis History/Risk Factors: Heavy alcohol abuser, Atrial Fibrillation, Hypertension, Diabetes Mellitus, GI Bleed, Chronic alcohol cirrhosis with portal hypertension. Clinical Indicators: 64-year-old male present with complaints of vomiting blood since yesterday (04/12/19). He admits to heavy alcohol abuse. He has a prior history of upper and lower GI bleeding, and esophageal varices. Lab findings: HGB 11.0, 8.6, HCT 35.3, 27.1 Vital Signs: 114/88 130 18 98, 141/76 86 16 Treatment: Clear liquids Protonix IV 40 mg BID IV Fluids Monitor CBC EGD with bald ligation of esophageal varices Consults: () 04/17/19 progress note: Acute esophageal variceal bleeding, status post esophagogastroduodenoscopy with variceal ligation. In your professional opinion, can you please clarify cause of Acute GI bleeding? Acute GI Bleeding due to acute esophageal variceal bleeding Other, please specify Unable to determine (Last Revision: August 2017) Acute GIB secondary to acute esophageal variceal bleed MTDD
--- NOTE | 2019-04-18 19:35 | PN ---
PROGRESS NOTE DATE OF DICTATION: 04/18/2019 The patient is a 64-year-old pleasant white male admitted to the hospital with acute upper GI bleed. He underwent an EGD with variceal ligation by Dr. Hicks 2 days ago and he is doing much better. No further episodes of bleeding. He still has some abdominal pain, but overall feeling much better. He wants to go home today. PHYSICAL EXAMINATION: He appears comfortable. No apparent distress. Vital signs are stable. Blood pressure is 133/92, pulse rate 89, temperature 97.6. HEENT examination unremarkable. Conjunctivae pink. Sclerae anicteric. Oral cavity no lesions. NECK: No JVD or lymph node enlargement. CHEST: Clear to auscultation. HEART: Regular rate and rhythm. ABDOMEN: Soft. Bowel sounds are positive. No organomegaly. EXTREMITIES: No pedal edema. SKIN: No rashes. NEUROLOGIC: Alert and oriented x3. No focal deficits. LABS: Labs from today show WBC 4.4, hemoglobin 8.8, platelets 124,000. IMPRESSION: 1. Acute upper gastrointestinal bleed secondary to esophageal variceal bleeding, status post esophagogastroduodenoscopy with variceal ligation 2 days ago. Patient doing better. Hemoglobin stable at 8.8 g/dL. 2. Heavy alcohol abuse. RECOMMENDATIONS: 1. The patient can be discharged home today with an outpatient followup with Dr. Hicks for possible repeat EGD with variceal ligation in a month from now. 2. Continue with Protonix 40 mg daily. 3. Abstain from alcohol. Thank you for this consultation. MMODL / IJN: [id number] /
== END 2019-04-18 16:50 | disposition home health service (06) | DRG 369 ==
LOC: EC 06:40 → 3NMEDONC 09:13 → OBSVTOIN 04-14 12:56
PROVIDERS: ADMIT Family Medicine; ATTEND Family Medicine
PROC: 06L38CZ Occlusion of Esophageal Vein with Extraluminal Device, Via Natural or Artificial Opening Endoscopic (ICD-10-PCS; principal; 2019-04-16 07:30)
DX: I85.11 Secondary esophageal varices with bleeding (principal); D62 Acute posthemorrhagic anemia; I48.20 Chronic atrial fibrillation, unspecified; K76.6 Portal hypertension; J44.9 Chronic obstructive pulmonary disease, unspecified; D69.6 Thrombocytopenia, unspecified; E11.9 Type 2 diabetes mellitus without complications; E78.5 Hyperlipidemia, unspecified; E86.9 Volume depletion, unspecified; F32.9 Major depressive disorder, single episode, unspecified; F41.9 Anxiety disorder, unspecified; I10 Essential (primary) hypertension; K21.9 Gastro-esophageal reflux disease without esophagitis; K31.89 Other diseases of stomach and duodenum; K70.30 Alcoholic cirrhosis of liver without ascites; Y90.6 Blood alcohol level of 120-199 mg/100 ml; Z79.4 Long term (current) use of insulin; Z79.51 Long term (current) use of inhaled steroids; Z79.899 Other long term (current) drug therapy; Z82.3 Family history of stroke; Z82.5 Family history of asthma and other chronic lower respiratory diseases; Z85.46 Personal history of malignant neoplasm of prostate; Z86.711 Personal history of pulmonary embolism; Z86.73 Personal history of transient ischemic attack (TIA), and cerebral infarction without residual deficits; Z87.11 Personal history of peptic ulcer disease
CPT/HCPCS: 36415; 43255; 71046; 80048; 80053; 80320; 81003; 82150; 83690; 85025; 85027; 85610; 85730; 86850; 86900; 86901; 94640; 96361; 96374; 96375; 96376; 99285

== ENCOUNTER 2019-04-25 03:56 | Inpatient (IN) | payer OTHER ==
[2019-04-25 04:35] LABS: Anisocytosis Slight; Basophils % (A) 0 %; Eosinophils % (A) 0 %; HCT 30.4 % (39.0-53.0); HGB 9.5 gm/dL (13.0-17.5); Hypochromasia Marked; Lymphocytes # (A) 1.4 k/uL (1.0-4.8); Lymphocytes % (A) 16 %; MCH 25.7 pg (25.0-35.0); MCHC 31.1 g/dL (31.0-37.0); MCV 82.7 fL (80.0-100.0); Monocytes # (A) 0.5 k/uL (0-1.0); Monocytes % (A) 6 %; Neutrophils % (A) 77 %; Platelet Count 173 k/uL (150-450); RBC 3.67 m/uL (4.30-5.90); WBC 9.1 k/uL (3.8-10.6)
[2019-04-25] MEDS ORDERED: LORazepam 2 MG/ML INJ IV PRN ×2 (04:37)
[2019-04-25] MEDS ORDERED: THIAMINE 100 MG/ML 2 ML VIAL IM STA (04:37)
--- NOTE | 2019-04-25 04:38 | ED ---
Fall HPI - General Chief Complaint: Fall Stated Complaint: Fall Time Seen by Provider: 04/25/19 04:00 Source: EMS Mode of arrival: EMS - History of Present Illness Initial Comments: Anders is a 64-year-old gentleman well-known to our emergency department due to his chronic alcoholism and recurrent injuries. Patient is brought today by EMS he reports that yesterday afternoon around 3 PM he had a mechanical trip and fall falling forward he was unable to get hands out to brace himself and struck his face. He reports he hurt his nose break. He reports he had a bloody nose at that time. He reports he's having a headache now. HHe denies other acute pain. - Related Data Home Medications Medication Instructions Recorded Confirmed Ferrous Sulfate [Iron (65 MG 325 mg PO DAILY 04/24/18 04/25/19 Elemental)] metFORMIN HCL [Glucophage] 500 mg PO BID 10/19/18 04/25/19 Multivitamins, Thera [Multivitamin 1 tab PO DAILY 12/12/18 04/25/19 (formulary)] Thiamine Mononitrate (Vit B1) 100 mg PO DAILY@1200 12/29/18 04/25/19 [Vitamin B-1] Amitriptyline HCl [Elavil] 25 mg PO HS 04/13/19 04/25/19 Previous Rx's Medication Instructions Recorded cloNIDine HCL [Catapres] 0.1 mg PO BID #60 tab 03/26/18 Sucralfate [Carafate] 1 gm PO AC-TID 30 Days #90 tab 10/24/18 Magnesium Oxide [Mag-Ox] 400 mg PO DAILY #20 tablet 11/01/18 Pantoprazole Sodium [Protonix] 40 mg PO BID #60 tablet. 11/04/18 Budesonide-Formot 160-4.5 Mcg 2 puff INHALATION RT-BID #1 inh 12/15/18 [Symbicort 160-4.5 Mcg Inhaler] Folic Acid 1 mg PO AC-LUNCH #30 tab 12/15/18 Acetaminophen Tab [Tylenol] 500 mg PO Q6HR tab 02/08/19 INSULIN LISPRO (HumaLOG) [humaLOG] 0 unit SQ ACHS #1 vial 03/15/19 Ondansetron Odt [Zofran ODT] 4 mg PO Q8HR PRN #10 tab 03/26/19 HYDROcodone/APAP 7.5-325MG [[place] 1 tab PO BID PRN #6 tab 04/18/19 7.5-325] Metoprolol Tartrate [Lopressor] 50 mg PO BID tab 04/18/19 Allergies Allergy/AdvReac Type Severity Reaction Status Date / Time adhesive tape Allergy Rash/Hives Verified 04/25/19 07:21 latex Allergy Unknown Verified 04/25/19 07:21 egg AdvReac Nausea & Verified 04/25/19 07:21 Vomiting lisinopril AdvReac EYES Verified 04/25/19 07:21 BURN&ITCH/WEAKNESS tomato AdvReac Nausea & Verified 04/25/19 07:21 Vomiting & Diarrhea Review of Systems ROS Statement: Those systems with pertinent positive or pertinent negative responses have been documented in the HPI. ROS Other: All systems not noted in ROS Statement are negative. Past Medical History Past Medical History: Atrial Fibrillation, Chest Pain / Angina, COPD, CVA/TIA, Diabetes Mellitus, GERD/Reflux, GI Bleed, Hyperlipidemia, Hypertension, Pneumonia, Prostate Disorder, Pulmonary Embolus (PE) Additional Past Medical History / Comment(s): tachycardia/palpitations likely d/t alcohol withdrawal. hx of Alcoholism, chronic alcoholic cirrhosis with portal hypertension and previous history of upper and lower GI bleeding, esophageal varices, previous history of childhood seizure which he outgrew not taking any antiepileptic medication-possibly had recent seizure-2018 thought d/t alcohol withdrawal, pulmonary embolism x 2 R lung, TIA, diverticulosis, chronic lower bilateral extremity ankle edema if he walks alot, previous history of septicemia, cervical disc disease with chronic back pain with r sided sciatica, degenerative arthritis involving the lower back, tinnitus, vitamin D deficiency, iron anemia, chronic thrombocytopenia, denies MRSA, C-DIFF -2018, scoliosis, scoliosis. pt had radiation th04/28 for prostate cancer History of Any Multi-Drug Resistant Organisms: MRSA Date of last positivie culture/infection: 03/17/18 MDRO Source:: stomach Past Surgical History: Appendectomy, Cholecystectomy Additional Past Surgical History / Comment(s): EGDs/esophageal varicies bandings, colonoscopies. Past Anesthesia/Blood Transfusion Reactions: No Reported Reaction Additional Past Anesthesia/Blood Transfusion Reaction / Comment(s): after appendix removed sob Past Psychological History: Anxiety, Depression Smoking Status: Never smoker Past Alcohol Use History: Abuse, Daily, Heavy Past Drug Use History: None Reported - Past Family History Mother Family Medical History: COPD, CVA/TIA, Dementia Additional Family Medical History / Comment(s): from a stroke Father Family Medical History: Pneumonia Additional Family Medical History / Comment(s): Father of pneumonia when he was close to 80 yrs old. General Exam - General Exam Comments Initial Comments: Physical Exam GENERAL: Patient is well-developed and well-nourished. Patient is nontoxic and well-hydrated and is in no distress. HENT: Normocephalic Contusion of her nasal bridge Tried blood and mustache and nares, no active bleeding No septal hematoma EYES: PERRL, EOMI PULMONARY: Unlabored respirations. CARDIOVASCULAR: Tachycardic, regular Warm and well perfused extremities ABDOMEN: Non-distended SKIN: No rashes or bruising : Deferred NEUROLOGIC: Alert and oriented Normal speech Tremulous MUSCULOSKELETAL: Moving all extremities with no apparent injury PSYCHIATRIC: No SI/HI Limitations: no limitations Course Vital Signs 04/25/19 04/25/19 04/25/19 03:58 05:03 06:44 Temperature 98.1 F 98.6 F Pulse Rate 131 H 131 H 132 H Respiratory 19 18 17 Rate Blood Pressure 132/82 140/93 127/88 O2 Sat by Pulse 96 94 L 96 Oximetry Medical Decision Making - Medical Decision Making was seen and evaluated history was obtained from the patient and EMS This is a well-known 64-year-old alcoholic gentleman presenting today for evaluation of head injury after a fall yesterday patient has an abrasion over his nose reports he hurt his nose. CT imaging was obtained as were labs CIWA protocol was ordered due to concern that patient is acutely during from alcohol Patient was initial CIWA score 9 - ativan ordered Trauma workup was negative for any acute findings however patient remains tachycardic and tremulous there is concerned that he is acutely withdrawing from alcohol this was discussed with admitting physician Dr. Marcus who agrees with plan for admission. - Lab Data Result diagrams: 04/25/19 04:00 04/25/19 04:00 Lab Results 04/25/19 04/25/19 Range/Units 04:00 04:00 WBC 9.1 (3.8-10.6) k/uL RBC 3.67 L (4.30-5.90) m/uL Hgb 9.5 L (13.0-17.5) gm/dL Hct 30.4 L (39.0-53.0) % MCV 82.7 (80.0-100.0) fL MCH 25.7 (25.0-35.0) pg MCHC 31.1 (31.0-37.0) g/dL RDW 17.0 H (11.5-15.5) % Plt Count 173 (150-450) k/uL Neutrophils % 77 % Lymphocytes % 16 % Monocytes % 6 % Eosinophils % 0 % Basophils % 0 % Neutrophils # 7.0 (1.3-7.7) k/uL Lymphocytes # 1.4 (1.0-4.8) k/uL Monocytes # 0.5 (0-1.0) k/uL Eosinophils # 0.0 (0-0.7) k/uL Basophils # 0.0 (0-0.2) k/uL Hypochromasia Marked Anisocytosis Slight Sodium 141 (137-145) mmol/L Potassium 3.7 (3.5-5.1) mmol/L Chloride 102 (98-107) mmol/L Carbon Dioxide 24 (22-30) mmol/L Anion Gap 15 mmol/L BUN 8 L (9-20) mg/dL Creatinine 0.61 L (0.66-1.25) mg/dL Est GFR (CKD-EPI)AfAm >90 (>60 ml/min/1.73 sqM) Est GFR (CKD-EPI)NonAf >90 (>60 ml/min/1.73 sqM) Glucose 128 H (74-99) mg/dL Calcium 8.0 L (8.4-10.2) mg/dL Total Bilirubin 0.7 (0.2-1.3) mg/dL AST 46 (17-59) U/L ALT 21 (21-72) U/L Alkaline Phosphatase 183 H (38-126) U/L Creatine Kinase 72 (55-170) U/L Total Protein 7.3 (6.3-8.2) g/dL Albumin 3.3 L (3.5-5.0) g/dL Lipase 74 (23-300) U/L - EKG Data -: EKG Interpreted by Me EKG shows normal: sinus rhythm EKG Comments: EKG was obtained due to tachycardia, EKG obtained at 4:29 AM, rate is 127 rhythm is sinus tachycardia normal axis normal intervals, SD 140, QRS 72, QTc is [address] elevations or depressions no evidence of acute ischemia or infarction Disposition Clinical Impression: Alcoholic liver disease, Alcohol withdrawal, At risk for readmission to hospital Disposition: ADMITTED IP TO THIS HOSP Condition: Serious Referrals: Yoon Phillips DO [Primary Care Provider] - 1-2 days
[2019-04-25 04:45] LABS: ALT 21 U/L (21-72); AST 46 U/L (17-59); African American GFR (CKD) >90 (>60 ml/min/1.73 sqM); Albumin 3.3 g/dL (3.5-5.0); Alkaline Phosphatase 183 U/L (38-126); Anion Gap 15 mmol/L; Blood Urea Nitrogen 8 mg/dL (9-20); Carbon Dioxide 24 mmol/L (22-30); Chloride 102 mmol/L (98-107); Creatine Kinase 72 U/L (55-170); Glucose 128 mg/dL (74-99); Non-African American GFR(CKD) >90 (>60 ml/min/1.73 sqM); Potassium 3.7 mmol/L (3.5-5.1); Sodium 141 mmol/L (137-145); Total Bilirubin 0.7 mg/dL (0.2-1.3); Total Protein 7.3 g/dL (6.3-8.2)
[2019-04-25] MEDS: LORazepam 2 MG/ML INJ IV PRN ×4 (04:57→20:45)
[2019-04-25] MEDS ORDERED: ONDANSETRON 4 MG/2 ML VIAL IVP STA (05:00)
--- NOTE | 2019-04-25 05:28 | CT ---
EXAMINATION TYPE: CT brain latrice shelton con DATE OF EXAM: 04/25/2019 COMPARISON: 03/11/2019 HISTORY: Patient presents with head and neck pain after fall. CT DLP: 795.2 mGycm Automated exposure control for dose reduction was used. There is mild cerebral atrophy. There is no mass effect nor midline shift. There is no sign of intrac ranial hemorrhage. The calvarium is intact. Skull base is intact. Cervical vertebra have normal alignment. There is mild spondylotic changes in the cervical spine. The re is narrowing at C3-4 discs. Facet joints are intact. There is no evidence of cervical spine fractu re. There is anterior wedging of T3 vertebra 40% unchanged. IMPRESSION: Mild atrophy. No acute intracranial abnormality. No change. Mild spondylotic changes in the cervical spine. No fracture. No change.
--- NOTE | 2019-04-25 05:31 | CT ---
EXAMINATION TYPE: CT facial bones wo con DATE OF EXAM: 04/25/2019 COMPARISON: None HISTORY: Patient presents with nasal pain after fall. CT DLP: 349.8 mGycm Automated exposure control for dose reduction was used. FINDINGS: Images were obtained from the bottom of the mandible to the top of the frontal sinuses without contra st. The mandibular ring is intact. Temporomandibular joints are intact. Zygomatic arches appear normal. N cristino bone is intact. Orbital margins are intact. There is no evidence of orbital mass. There is fairly normal aeration of the paranasal sinuses. There is bilateral patency of the ostiomeat al complex. There is no evidence of a blowout fracture. Maxilla is intact. I see no bony destructive process. There is normal aeration of the temporal bones. There is some debris in the left external au ditory canal. IMPRESSION: Negative CT scan of the facial bones. No fracture.
[2019-04-25] MEDS ORDERED: NALOXONE 0.4 MG/ML 1 ML VIAL IV PRN (06:50)
[2019-04-25] MEDS ORDERED: PANTOPRAZOLE 40 MG/10 ML VIAL IV SCH (09:00)
[2019-04-25] MEDS: SODIUM CHLORIDE 0.9% 1,000 ML IV SCH ×3 (09:07→23:26)
[2019-04-25] MEDS: MULTIVITAMINS, THERA 1 EACH TAB PO SCH (10:11)
[2019-04-25] MEDS: THIAMINE 100 MG TAB PO SCH (16:35)
[2019-04-25 17:16] LABS: Glucose,Whole Blood 159 mg/dL (75-99)
[2019-04-25] MEDS ORDERED: ACETAMINOPHEN TAB 325 MG TAB PO PRN (20:02)
[2019-04-25] MEDS ORDERED: IBUPROFEN 400 MG TAB PO PRN (20:03)
[2019-04-25 20:06] LABS: Glucose,Whole Blood 172 mg/dL (75-99)
[2019-04-25] MEDS: SYMBICORT 160-4.5 MCG INHALER INHALATION SCH (20:39)
[2019-04-25] MEDS: metFORMIN 500 MG TAB PO SCH (20:43)
[2019-04-25] MEDS: cloNIDine HCL 0.1 MG TAB PO SCH (20:43)
[2019-04-25] MEDS: METOPROLOL TARTRATE 50 MG TAB PO SCH (20:43)
[2019-04-25] MEDS: TAMSULOSIN 0.4 MG CAP.ER.24H PO SCH (20:43)
[2019-04-25] MEDS: PANTOPRAZOLE 40 MG TABLET PO SCH (20:43)
[2019-04-25] MEDS: AMITRIPTYLINE HCL 25 MG TAB PO SCH (21:04)
--- NOTE | 2019-04-25 22:40 | P.HPIM ---
History of Present Illness H&P Date: 04/25/19 Chief Complaint: alcohol withdrawal Anders Aguilar is a 64 yo M with hx alcoholism, frequent injuries, esophageal varices and recurrent upper GI bleeding who was recently discharged for alcohol withdrawal a few weeks ago. He states that he started drinking again soon after discharge and has been drinking a fifth per day. He tripped yesterday and has been dealing with nosebleed as well. In the ED his nosebleed was controlled and hgb improved from last admission. Review of Systems All systems: negative Constitutional: Reports fatigue, Reports lethargy, Reports malaise, Denies chills, Denies fever Eyes: denies blurred vision, denies pain Ears, nose, mouth and throat: Reports epistaxis, Denies headache, Denies sore throat Cardiovascular: Denies chest pain, Denies shortness of breath Respiratory: Denies cough Gastrointestinal: Reports as per HPI, Denies abdominal pain, Denies diarrhea, Denies hematemesis, Denies nausea, Denies vomiting Musculoskeletal: Denies myalgias Integumentary: Denies pruritus, Denies rash Neurological: Denies numbness, Denies weakness Psychiatric: Denies anxiety, Denies depression Endocrine: Denies fatigue, Denies weight change Past Medical History Past Medical History: Atrial Fibrillation, Chest Pain / Angina, COPD, CVA/TIA, Diabetes Mellitus, GERD/Reflux, GI Bleed, Hearing Disorder / Deafness, Hyperlipidemia, Hypertension, Liver Disease, Pneumonia, Prostate Disorder, Pulmonary Embolus (PE) Additional Past Medical History / Comment(s): Pt recently admitted to [facility] on 04/14/19 with GI bleed and had esophageal varicies banded. Other hx: Alcoholism, alcohol withdrawal DTs and possibly a seizure in 2018 r/t withdrawal, chronic alcoholic cirrhosis with portal hypertension and previous history of upper and lower GI bleeding, esophageal varices, previous history of childhood seizure which he outgrew not taking any antiepileptic medication, pulmonary embolism x 2 R lung, TIA, diverticulosis, chronic lower bilateral extremity ankle edema if he walks alot, previous history of septicemia, cervical disc disease, chronic neck pain, chronic back pain with r sided sciatica, degenerative arthritis involving the lower back, scoliosis, tinnitus, vitamin D deficiency, iron anemia, chronic thrombocytopenia, denies MRSA, C-DIFF , scoliosis, scoliosis History of Any Multi-Drug Resistant Organisms: MRSA Date of last positivie culture/infection: 03/17/18 MDRO Source:: stomach Past Surgical History: Appendectomy, Cholecystectomy Additional Past Surgical History / Comment(s): EGDs/esophageal varicies bandings, colonoscopies. Past Anesthesia/Blood Transfusion Reactions: No Reported Reaction Additional Past Anesthesia/Blood Transfusion Reaction / Comment(s): after append ix removed sob Smoking Status: Never smoker - Past Family History Mother Family Medical History: COPD, CVA/TIA, Dementia Additional Family Medical History / Comment(s): from a stroke Father Family Medical History: Pneumonia Additional Family Medical History / Comment(s): Father of pneumonia when he was close to 80 yrs old. Medications and Allergies Home Medications Medication Instructions Recorded Confirmed Type cloNIDine HCL [Catapres] 0.1 mg PO BID #60 tab 03/26/18 04/25/19 Rx Ferrous Sulfate [Iron (65 MG 325 mg PO DAILY 04/24/18 04/25/19 History Elemental)] metFORMIN HCL [Glucophage] 500 mg PO BID 10/19/18 04/25/19 History Sucralfate [Carafate] 1 gm PO AC-TID 30 Days #90 tab 10/24/18 04/25/19 Rx Magnesium Oxide [Mag-Ox] 400 mg PO DAILY #20 tablet 11/01/18 04/25/19 Rx Pantoprazole Sodium [Protonix] 40 mg PO BID #60 tablet.dr 11/04/18 04/25/19 Rx Multivitamins, Thera [Multivitamin 1 tab PO DAILY 12/12/18 04/25/19 History (formulary)] Budesonide-Formot 160-4.5 Mcg 2 puff INHALATION RT-BID #1 inh 12/15/18 04/25/19 Rx [Symbicort 160-4.5 Mcg Inhaler] Folic Acid 1 mg PO AC-LUNCH #30 tab 12/15/18 04/25/19 Rx Thiamine Mononitrate (Vit B1) 100 mg PO DAILY@1200 12/29/18 04/25/19 History [Vitamin B-1] Acetaminophen Tab [Tylenol] 500 mg PO Q6HR tab 02/08/19 04/25/19 Rx INSULIN LISPRO (HumaLOG) [humaLOG] 0 unit SQ ACHS #1 vial 03/15/19 04/25/19 Rx Ondansetron Odt [Zofran ODT] 4 mg PO Q8HR PRN #10 tab 03/26/19 04/25/19 Rx Amitriptyline HCl [Elavil] 25 mg PO HS 04/13/19 04/25/19 History HYDROcodone/APAP 7.5-325MG [[place] 1 tab PO BID PRN #6 tab 04/18/19 04/25/19 Rx 7.5-325] Metoprolol Tartrate [Lopressor] 50 mg PO BID tab 04/18/19 04/25/19 Rx Allergies Allergy/AdvReac Type Severity Reaction Status Date / Time adhesive tape Allergy Rash/Hives Verified 04/25/19 07:21 latex Allergy Unknown Verified 04/25/19 07:21 egg AdvReac Nausea & Verified 04/25/19 07:21 Vomiting lisinopril AdvReac EYES Verified 04/25/19 07:21 BURN&ITCH/WEAKNESS tomato AdvReac Nausea & Verified 04/25/19 07:21 Vomiting & Diarrhea Physical Exam Vitals: Vital Signs Temp Pulse Pulse Resp BP BP Pulse Ox 04/25/19 19:40 98.9 F 133 H 18 147/90 99 04/25/19 16:54 98.5 F 134 H 18 159/94 96 04/25/19 15:02 98.1 F 130 H 18 156/95 97 04/25/19 12:33 129 H 18 155/98 98 04/25/19 09:10 98.0 F 133 H 22 137/89 98 04/25/19 06:44 98.6 F 132 H 17 127/88 96 04/25/19 05:03 131 H 18 140/93 94 L 04/25/19 03:58 98.1 F 131 H 19 132/82 96 Intake and Output 04/25/19 04/25/19 04/25/19 06:59 14:59 22:59 Other: Weight 74.389 kg 74.389 kg General: thin, disheveled, NAD. Vitals reviewed Eyes: PERRL, EOMI, conjunctiva normal HENT: normocephalic, mucus membranes moist Neck: supple, no JVD Lungs: normal respiratory effort, no wheezes or rales CV: Regular rate and rhythm, no murmur. Peripheral pulses 2+ Abdomen: soft, nondistended, no organomegaly. Mild generalized tenderness Lymph: no cervical or axillary LAD Skin: warm and dry. Neuro: A&Ox3 no focal deficits Results CBC & Chem 7: 04/25/19 04:00 04/25/19 04:00 Labs: Abnormal Lab Results - Last 24 Hours (Table) 04/25/19 04/25/19 04/25/19 Range/Units 04:00 04:00 17:13 RBC 3.67 L (4.30-5.90) m/uL Hgb 9.5 L (13.0-17.5) gm/dL Hct 30.4 L (39.0-53.0) % RDW 17.0 H (11.5-15.5) % BUN 8 L (9-20) mg/dL Creatinine 0.61 L (0.66-1.25) mg/dL Glucose 128 H (74-99) mg/dL POC Glucose (mg/dL) 159 H (75-99) mg/dL Calcium 8.0 L (8.4-10.2) mg/dL Alkaline Phosphatase 183 H (38-126) U/L Albumin 3.3 L (3.5-5.0) g/dL 04/25/19 Range/Units 20:05 RBC (4.30-5.90) m/uL Hgb (13.0-17.5) gm/dL Hct (39.0-53.0) % RDW (11.5-15.5) % BUN (9-20) mg/dL Creatinine (0.66-1.25) mg/dL Glucose (74-99) mg/dL POC Glucose (mg/dL) 172 H (75-99) mg/dL Calcium (8.4-10.2) mg/dL Alkaline Phosphatase (38-126) U/L Albumin (3.5-5.0) g/dL Thrombosis Risk Factor Assmnt - Choose All That Apply Any of the Below Risk Factors Present?: Yes Each Factor Represents 1 point: Abnormal pulmonary function (COPD), Obesity (BMI >25) Other Risk Factors: Yes Each Risk Factor Represents 2 Points: Age 61-74 years Each Risk Factor Represents 3 Points: History of DVT/PE Other congenital or acquired thrombophilia - If yes, enter type in comment: No Thrombosis Risk Factor Assessment Total Risk Factor Score: 7 Thrombosis Risk Factor Assessment Level: High Risk Assessment and Plan (1) Alcohol withdrawal Current Visit: Yes Status: Acute Code(s): F10.239 - ALCOHOL DEPENDENCE WITH WITHDRAWAL, UNSPECIFIED SNOMED Code(s): 554157723 (2) Alcoholic liver disease Current Visit: Yes Status: Acute Code(s): K70.9 - ALCOHOLIC LIVER DISEASE, UNSPECIFIED SNOMED Code(s): 99635027 (3) At risk for readmission to hospital Current Visit: Yes Status: Acute Code(s): Z91.89 - [facility] PERSONAL RISK FACT ORS, NOT ELSEWHERE CLASSIFIED SNOMED Code(s): 4635540710833 (4) Alcohol dependence Current Visit: No Status: Acute Code(s): F10.20 - ALCOHOL DEPENDENCE, UNCOMPLICATED SNOMED Code(s): 81413538 Plan: 1. Alcohol withdrawal. WA protocol. Continue his clonidine, thiamin, folate. continue PPI and carafate. Social work consult
[2019-04-26 07:16] LABS: Glucose,Whole Blood 135 mg/dL (75-99)
[2019-04-26] MEDS: LORazepam 2 MG/ML INJ IV PRN ×2 (07:30→23:53)
[2019-04-26] MEDS: SYMBICORT 160-4.5 MCG INHALER INHALATION SCH ×2 (08:05→19:13)
[2019-04-26] MEDS: SODIUM CHLORIDE 0.9% 1,000 ML IV SCH ×3 (08:42→23:54)
[2019-04-26] MEDS: PANTOPRAZOLE 40 MG TABLET PO SCH ×2 (08:43→15:50)
[2019-04-26] MEDS: METOPROLOL TARTRATE 50 MG TAB PO SCH ×2 (08:43→20:30)
[2019-04-26] MEDS: cloNIDine HCL 0.1 MG TAB PO SCH ×2 (08:43→20:30)
[2019-04-26] MEDS: MULTIVITAMINS, THERA 1 EACH TAB PO SCH (08:43)
[2019-04-26] MEDS: THIAMINE 100 MG TAB PO SCH ×2 (08:43→17:18)
[2019-04-26] MEDS: SUCRALFATE 1 GM TAB PO SCH ×3 (08:43→17:17)
[2019-04-26] MEDS: FOLIC ACID 1 MG TAB PO SCH (08:43)
[2019-04-26] MEDS: MAGNESIUM OXIDE 400 MG TAB PO SCH (08:43)
[2019-04-26] MEDS: FERROUS SULFATE 325 MG TAB PO SCH (08:43)
[2019-04-26] MEDS: metFORMIN 500 MG TAB PO SCH ×2 (08:43→20:30)
--- NOTE | 2019-04-26 08:57 | CDI ---
Documentation Clarification Form Date: 04/26/2019 8:50:01 AM From: Maye Zhang RN, CCDS Admit Date: 04/25/2019 6:51:00 AM Patient Name: Anders Aguilar Visit Number: [id number] ATTENTION: The Clinical Documentation Specialists (CDI) and [facility] Coding Staff appreciate your assistance in clarifying documentation. Please respond to the clarification below the line at the bottom and electronically sign. The CDI & [facility] Coding staff will review the response and follow-up if needed. Please note: Queries are made part of the Legal Health Record. If you have any questions, please contact the author of this message via ITS. Dr. Alexys Marcus Atrial Fibrillation is documented in the PMH and requires further specificity. History/Risk Factors: Atrial Fib, Chest Pain, COPD, GERD, GIB, Liver Disease, PE Clinical Indicators: EKG/telemetry: ST Treatment: IVF @ 125 cc/hr Lopressor 50 mg PO BID No anticoagulation d/t h of GIB In your professional opinion, can you please clarify the type of Atrial Fibrillation, if known? Chronic/Permanent Paroxysmal Persistent Other, please specify Unable to determine (Last Revision: August 2017) Other, question diagnosis EKG is NSR MTDD
[2019-04-26] MEDS ORDERED: MULTIVITAMINS, THERA 1 EACH TAB PO SCH (09:00)
[2019-04-26 11:15] LABS: Glucose,Whole Blood 153 mg/dL (75-99)
[2019-04-26 16:12] VITALS: BMI 27.3
--- NOTE | 2019-04-26 16:26 | P.PN ---
Subjective Progress Note Date: 04/26/19 Anders Aguilar is a 64 yo M with hx alcoholism, frequent injuries, esophageal varices and recurrent upper GI bleeding who was recently discharged for alcohol withdrawal a few weeks ago. He states that he started drinking again soon after discharge and has been drinking a fifth per day. He tripped yesterday and has been dealing with nosebleed as well. In the ED his nosebleed was controlled and hgb improved from last admission. 04/26/2019 maintained on IV fluids, shakes improving. Developed nosebleed y esterday, subsided. complains of mid epigastric and mid lower back tenderness. VSS. Good diet intake with no nausea vomiting or diarrhea. Bladder scanned for greater than 700ml post void, difficult straight cath, urology consulted. Denies chest pain, palpitations or shortness of breath. Verbally expressing agreement to going to subacute rehab. Objective - Vital Signs Vital signs: Vital Signs Temp 98.4 F 04/26/19 05:00 Pulse 100 04/26/19 05:00 Resp 20 04/26/19 05:00 BP 126/81 04/26/19 05:00 Pulse Ox 98 04/26/19 05:00 Intake & Output 04/25/19 04/26/19 04/26/19 18:59 06:59 18:59 Intake Total 1715 Output Total 275 Balance 1440 Weight 74.389 kg Intake: Intake, IV Titration 1125 Amount Sodium Chloride 0.9% 1, 1125 000 ml @ 125 mls/hr IV . Q8H [facility] Rx#:[id number] Oral 590 Output: Urine 275 Straight 150 Other: Voiding Method Toilet # Voids 1 - Exam General: thin, disheveled, NAD. Vitals reviewed Eyes: PERRL, EOMI, conjunctiva normal HENT: normocephalic, mucus membranes moist Neck: supple, no JVD Lungs: normal respiratory effort, no wheezes or rales CV: Regular rate and rhythm, no murmur. Peripheral pulses 2+ Abdomen: soft, nondistended, no organomegaly. Mild generalized tenderness Lymph: no cervical or axillary LAD Skin: warm and dry. Neuro: A&Ox3 no focal deficits - Labs CBC & Chem 7: 04/25/19 04:00 04/25/19 04:00 Labs: Abnormal Lab Results - Last 24 Hours (Table) 04/25/19 04/25/19 04/26/19 Range/Units 17:13 20:05 07:12 POC Glucose (mg/dL) 159 H 172 H 135 H (75-99) mg/dL Assessment and Plan Assessment: (1) Alcohol withdrawal Current Visit: Yes Status: Acute Code(s): F10.239 - ALCOHOL DEPENDENCE WITH WITHDRAWAL, UNSPECIFIED SNOMED Code(s): 840101227 (2) Alcoholic liver disease Current Visit: Yes Status: Acute Code(s): K70.9 - ALCOHOLIC LIVER DISEASE, UNSPECIFIED SNOMED Code(s): 06644265 (3) At risk for readmission to hospital Current Visit: Yes Status: Acute Code(s): Z91.89 - OTH PERSONAL RISK FACTORS, NOT ELSEWHERE CLASSIFIED SNOMED Code(s): 5928630758530 (4) Alcohol dependence Current Visit: No Status: Acute Code(s): F10.20 - ALCOHOL DEPENDENCE, UNCOMPLICATED SNOMED Code(s): 65990374 Plan: Continue on current medication regime ,monitoring and symptomatic treatment. Maintain CIWA protocol, folic acid, thiamine, PPI, Carafate, clonidine. PT/OT. Social work to assist with discharge planning to subacute rehab tomorrow. The impression and plan of care has been dictated as directed. : I performed a history and examination of this patient, discussed the same with the dictator. I agree with the dictator's note ,documented as a scribe. Any additional findings or plans will be noted.
[2019-04-26 17:03] LABS: Glucose,Whole Blood 169 mg/dL (75-99)
[2019-04-26] MEDS: TAMSULOSIN 0.4 MG CAP.ER.24H PO SCH (17:17)
[2019-04-26] MEDS: ONDANSETRON 4 MG/2 ML VIAL IVP PRN (19:26)
[2019-04-26 20:08] LABS: Glucose,Whole Blood 146 mg/dL (75-99)
[2019-04-26] MEDS: AMITRIPTYLINE HCL 25 MG TAB PO SCH (20:30)
[2019-04-26] MEDS ORDERED: HYDROcodone/APAP 5-325MG 1 EACH TAB PO STA (20:53)
[2019-04-27 07:19] LABS: Glucose,Whole Blood 99 mg/dL (75-99)
[2019-04-27] MEDS: METOPROLOL TARTRATE 50 MG TAB PO SCH ×2 (08:15→20:05)
[2019-04-27] MEDS: MULTIVITAMINS, THERA 1 EACH TAB PO SCH (08:15)
[2019-04-27] MEDS: FERROUS SULFATE 325 MG TAB PO SCH (08:15)
[2019-04-27] MEDS: SUCRALFATE 1 GM TAB PO SCH ×3 (08:15→17:36)
[2019-04-27] MEDS: FOLIC ACID 1 MG TAB PO SCH (08:15)
[2019-04-27] MEDS: cloNIDine HCL 0.1 MG TAB PO SCH ×2 (08:15→20:05)
[2019-04-27] MEDS: PANTOPRAZOLE 40 MG TABLET PO SCH ×2 (08:15→17:37)
[2019-04-27] MEDS: metFORMIN 500 MG TAB PO SCH ×2 (08:15→20:05)
[2019-04-27] MEDS: MAGNESIUM OXIDE 400 MG TAB PO SCH (08:15)
[2019-04-27] MEDS: THIAMINE 100 MG TAB PO SCH ×2 (08:16→17:37)
[2019-04-27] MEDS: SYMBICORT 160-4.5 MCG INHALER INHALATION SCH ×2 (08:19→19:09)
[2019-04-27 09:14] LABS: Anisocytosis Slight; Basophils % (A) 0 %; Eosinophils # (A) 0.1 k/uL (0-0.7); Eosinophils % (A) 2 %; HCT 27.1 % (39.0-53.0); HGB 8.2 gm/dL (13.0-17.5); Hypochromasia Marked; Lymphocytes # (A) 1.3 k/uL (1.0-4.8); Lymphocytes % (A) 32 %; MCH 25.5 pg (25.0-35.0); MCHC 30.3 g/dL (31.0-37.0); MCV 84.1 fL (80.0-100.0); Mean Platelet Volume 8.5; Monocytes # (A) 0.2 k/uL (0-1.0); Monocytes % (A) 4 %; Neutrophils # (A) 2.5 k/uL (1.3-7.7); Neutrophils % (A) 60 %; Platelet Count 153 k/uL (150-450); RBC 3.22 m/uL (4.30-5.90); RDW 16.7 % (11.5-15.5); WBC 4.1 k/uL (3.8-10.6)
[2019-04-27 09:26] LABS: African American GFR (CKD) >90 (>60 ml/min/1.73 sqM); Anion Gap 7 mmol/L; Blood Urea Nitrogen 7 mg/dL (9-20); Carbon Dioxide 26 mmol/L (22-30); Chloride 106 mmol/L (98-107); Glucose 146 mg/dL (74-99); Non-African American GFR(CKD) >90 (>60 ml/min/1.73 sqM); Potassium 3.3 mmol/L (3.5-5.1); Sodium 139 mmol/L (137-145)
[2019-04-27] MEDS: SODIUM CHLORIDE 0.9% 1,000 ML IV SCH ×2 (11:37→17:37)
[2019-04-27 11:38] LABS: Glucose,Whole Blood 114 mg/dL (75-99)
[2019-04-27] MEDS ORDERED: Potassium Replacement Protocol 1 EACH MISC MISCELLANE PRN (14:11)
--- NOTE | 2019-04-27 14:24 | P.DS ---
Providers Date of admission: 04/25/19 06:51 Expected date of discharge: 04/27/19 Attending physician: Alexys Marcus MD Primary care physician: Yoon Phillips Hospital Course: Final Diagnoses: (1) Alcohol withdrawal Current Visit: Yes Status: Acute Code(s): F10.239 - ALCOHOL DEPENDENCE WITH WITHDRAWAL, UNSPECIFIED SNOMED Code(s): 121725351 (2) Alcoholic liver disease Current Visit: Yes Status: Acute Code(s): K70.9 - ALCOHOLIC LIVER DISEASE, UNSPECIFIED SNOMED Code(s): 26550267 (3) At risk for readmission to hospital Current Visit: Yes Status: Acute Code(s): Z91.89 - OTH PERSONAL RISK FACTORS, NOT ELSEWHERE CLASSIFIED SNOMED Code(s): 0713317079997 (4) Alcohol dependence Current Visit: No Status: Acute Code(s): F10.20 - ALCOHOL DEPENDENCE, UNCOMPLICATED SNOMED Code(s): 13978142 -Paroximal atrial fibrillation -Iron deficient anemia Hospital course:Anders Aguilar is a 64 yo M with hx alcoholism, frequent injuries, esophageal varices and recurrent upper GI bleeding who was recently discharged for alcohol withdrawal a few weeks ago. He states that he started drinking again soon after discharge and has been drinking a fifth per day. He tripped yesterday and has been dealing with nosebleed as well. In the ED his nosebleed was controlled and hgb improved from last admission. 04/26/2019 maintained on IV fluids, shakes improving. Developed nosebleed yesterday, subsided. complains of mid epigastric and mid lower back tenderness. VSS. Good diet intake with no nausea vomiting or diarrhea. Bladder scanned for greater than 700ml post void, difficult straight cath, urology consulted. Denies chest pain, palpitations or shortness of breath. Verbally expressing agreement to going to subacute rehab. Significant clinical improvement. Patient has been instructed to follow-up with [facility] tomorrow to be initiated on Naltrexone monthly IM, as previously discussed with patient during his prior recent admission. Patient is being discharged home in a stable condition with guarded prognosis pending potassium supplementation. Exam General: Alert and oriented 3, no acute distress Lungs: normal respiratory effort, no wheezes or rales CV: Regular rate and rhythm, no murmur. Peripheral pulses 2+ Abdomen: soft, distended, no organomegaly. Mild generalized tenderness Neuro:no focal deficits The impression and plan of care has been dictated as directed. : I performed a history and examination of this patient, discussed the same with the dictator. I agree with the dictator's note ,documented as a scribe. Any additional findings or plans will be noted. Patient Condition at Discharge: Stable Plan - Discharge Summary Discharge Rx Participant: No New Discharge Prescriptions: New Tamsulosin [Flomax] 0.8 mg PO PC-SUPPER #30 cap.er.24h Continue cloNIDine HCL [Catapres] 0.1 mg PO BID #60 tab Ferrous Sulfate [Iron (65 MG Elemental)] 325 mg PO DAILY metFORMIN HCL [Glucophage] 500 mg PO BID Sucralfate [Carafate] 1 gm PO AC-TID 30 Days #90 tab Magnesium Oxide [Mag-Ox] 400 mg PO DAILY #20 tablet Pantoprazole Sodium [Protonix] 40 mg PO BID #60 tablet. Multivitamins Thera [Multivitamin (formulary)] 1 tab PO DAILY Folic Acid 1 mg PO AC-LUNCH #30 tab Budesonide-Formot 160-4.5 Mcg [Symbicort 160-4.5 Mcg Inhaler] 2 puff INHALATION RT-BID #1 inh Thiamine Mononitrate (Vit B1) [Vitamin B-1] 100 mg PO DAILY@1200 Acetaminophen Tab [Tylenol] 500 mg PO Q6HR tab INSULIN LISPRO (HumaLOG) [humaLOG] 0 unit SQ ACHS #1 vial Ondansetron Odt [Zofran ODT] 4 mg PO Q8HR PRN #10 tab PRN Reason: Nausea Amitriptyline HCl [Elavil] 25 mg PO HS Metoprolol Tartrate [Lopressor] 50 mg PO BID tab HYDROcodone/APAP 7.5-325MG [[place] 7.5-325] 1 tab PO BID PRN #6 tab PRN Reason: Pain Discharge Medication List cloNIDine HCL [Catapres] 0.1 mg PO BID #60 tab 03/26/18 [Rx] Ferrous Sulfate [Iron (65 MG Elemental)] 325 mg PO DAILY 04/24/18 [History] metFORMIN HCL [Glucophage] 500 mg PO BID 10/19/18 [History] Sucralfate [Carafate] 1 gm PO AC-TID 30 Days #90 tab 10/24/18 [Rx] Magnesium Oxide [Mag-Ox] 400 mg PO DAILY #20 tablet 11/01/18 [Rx] Pantoprazole Sodium [Protonix] 40 mg PO BID #60 tablet. 11/04/18 [Rx] Multivitamins, Thera [Multivitamin (formulary)] 1 tab PO DAILY 12/12/18 [History] Budesonide-Formot 160-4.5 Mcg [Symbicort 160-4.5 Mcg Inhaler] 2 puff INHALATION RT-BID #1 inh 12/15/18 [Rx] Folic Acid 1 mg PO AC-LUNCH #30 tab 12/15/18 [Rx] Thiamine Mononitrate (Vit B1) [Vitamin B-1] 100 mg PO DAILY@1200 12/29/18 [History] Acetaminophen Tab [Tylenol] 500 mg PO Q6HR tab 02/08/19 [Rx] INSULIN LISPRO (HumaLOG) [humaLOG] 0 unit SQ ACHS #1 vial 03/15/19 [Rx] Ondansetron Odt [Zofran ODT] 4 mg PO Q8HR PRN #10 tab 03/26/19 [Rx] Amitriptyline HCl [Elavil] 25 mg PO HS 04/13/19 [History] HYDROcodone/APAP 7.5-325MG [[place] 7.5-325] 1 tab PO BID PRN #6 tab 04/18/19 [Rx] Metoprolol Tartrate [Lopressor] 50 mg PO BID tab 04/18/19 [Rx] Tamsulosin [Flomax] 0.8 mg PO PC-SUPPER #30 cap.er.24h 04/27/19 [Rx] Follow up Appointment(s)/Referral(s): Kareen Peres NPC [Nurse Practitioner] - 04/28/19 (Please make appointment prior to discharge with Kareen Peres [employer] [facility]) Ambulatory/Diagnostic Orders: Complete Blood Count w/diff [LAB.AMB] Time Frame: 3 Days, Location: None Selected Activity/Diet/Wound Care/Special Instructions: Pending potassium supplementation.No EtOH
[2019-04-27 17:08] LABS: Glucose,Whole Blood 119 mg/dL (75-99)
[2019-04-27] MEDS: TAMSULOSIN 0.4 MG CAP.ER.24H PO SCH (17:36)
[2019-04-27] MEDS: AMITRIPTYLINE HCL 25 MG TAB PO SCH (20:05)
[2019-04-27 20:09] LABS: Glucose,Whole Blood 140 mg/dL (75-99)
[2019-04-27 20:53] VITALS: RESP 18
[2019-04-27] MEDS: ONDANSETRON 4 MG/2 ML VIAL IVP PRN (22:39)
[2019-04-28 04:58] VITALS: BP 124/69; PULSE 87; TEMP 98.2
[2019-04-28] MEDS: SODIUM CHLORIDE 0.9% 1,000 ML IV SCH ×3 (06:12→14:40)
[2019-04-28 06:57] LABS: Glucose,Whole Blood 105 mg/dL (75-99)
[2019-04-28] MEDS: SYMBICORT 160-4.5 MCG INHALER INHALATION SCH (07:53)
[2019-04-28] MEDS: PANTOPRAZOLE 40 MG TABLET PO SCH (09:12)
[2019-04-28] MEDS: metFORMIN 500 MG TAB PO SCH (09:13)
[2019-04-28] MEDS: FERROUS SULFATE 325 MG TAB PO SCH (09:13)
[2019-04-28] MEDS: METOPROLOL TARTRATE 50 MG TAB PO SCH (09:13)
[2019-04-28] MEDS: cloNIDine HCL 0.1 MG TAB PO SCH (09:13)
[2019-04-28] MEDS: THIAMINE 100 MG TAB PO SCH (09:13)
[2019-04-28] MEDS: SUCRALFATE 1 GM TAB PO SCH ×2 (09:13→14:40)
[2019-04-28] MEDS: MULTIVITAMINS, THERA 1 EACH TAB PO SCH (09:13)
[2019-04-28] MEDS: MAGNESIUM OXIDE 400 MG TAB PO SCH (09:13)
[2019-04-28] MEDS: ONDANSETRON 4 MG/2 ML VIAL IVP PRN (09:22)
[2019-04-28] MEDS: FOLIC ACID 1 MG TAB PO SCH (14:40)
[2019-04-28] MEDS: POTASSIUM CHLORIDE ER 20 MEQ TAB.ER PO SCH ×2 (14:40→15:57)
== END 2019-04-28 16:15 | disposition home or self-care (01) | DRG 897 ==
LOC: EC 03:56 → 4SSUR 06:51 → 3NMEDONC 10:35 → UNDODISIN 04-26 13:35
PROVIDERS: ADMIT Family Medicine; ATTEND Family Medicine
DX: F10.239 Alcohol dependence with withdrawal, unspecified (principal); K76.6 Portal hypertension; I85.00 Esophageal varices without bleeding; D50.9 Iron deficiency anemia, unspecified; E11.9 Type 2 diabetes mellitus without complications; E78.5 Hyperlipidemia, unspecified; H91.90 Unspecified hearing loss, unspecified ear; I10 Essential (primary) hypertension; I48.0 Paroxysmal atrial fibrillation; J44.9 Chronic obstructive pulmonary disease, unspecified; K70.30 Alcoholic cirrhosis of liver without ascites; S09.90XA Unspecified injury of head, initial encounter; W01.0XXA Fall on same level from slipping, tripping and stumbling without subsequent striking against object, initial encounter; Z79.4 Long term (current) use of insulin; Z79.51 Long term (current) use of inhaled steroids; Z79.899 Other long term (current) drug therapy; Z82.3 Family history of stroke; Z82.5 Family history of asthma and other chronic lower respiratory diseases; Z85.46 Personal history of malignant neoplasm of prostate; Z86.711 Personal history of pulmonary embolism; Z86.73 Personal history of transient ischemic attack (TIA), and cerebral infarction without residual deficits; R40.2412 Glasgow coma scale score 13-15, at arrival to emergency department; Z90.49 Acquired absence of other specified parts of digestive tract; Z88.8 Allergy status to other drugs, medicaments and biological substances; Z91.012 Allergy to eggs; Z91.040 Latex allergy status; Z91.018 Allergy to other foods
CPT/HCPCS: 36415; 70450; 70486; 72125; 80048; 80053; 82550; 83690; 84153; 85025; 93005; 94640; 96360; 96372; 96374; 96375; 96376; 99285

== ENCOUNTER 2019-05-10 16:30 | Inpatient (IN) | payer OTHER ==
[2019-05-10] MEDS ORDERED: ONDANSETRON 4 MG/2 ML VIAL IVP STA (16:48)
[2019-05-10] MEDS ORDERED: SODIUM CHLORIDE 0.9% 1,000 ML IV STA (16:48)
--- NOTE | 2019-05-10 17:03 | ED ---
Nausea/Vomiting/Diarrhea HPI - General Chief complaint: Nausea/Vomiting/Diarrhea Stated complaint: Nausea Time Seen by Provider: 05/10/19 16:35 Source: patient, EMS Mode of arrival: EMS Limitations: no limitations, language barrier - History of Present Illness Initial comments: The patient is a 64-year-old male with past history of alcohol abuse, GI bleed, CVA and A. fib who presents to the emergency room with reported nausea and vomiting. Patient states that he had multiple episodes of nonbilious, nonbloody vomiting yesterday which started after he drank 2 pints of alcohol. States that he does have a history of alcohol abuse. He has been sober for the past 2 months however relapsed yesterday. Today the dry heaving continued. He denies hematemesis. Does admit to dark stools. No constipation but admits to diarrhea. Denies hematochezia. No fevers or chills. No abdominal pain. Does admit to reflux sensation from vomiting. Has not taken any medications at home for symptoms. Denies abuse of any other drugs. Denies any back or leg pain. No urinary changes. There are no other alleviating, precipitating or modifying factors - Related Data Home Medications Medication Instructions Recorded Confirmed Ferrous Sulfate [Iron (65 MG 325 mg PO DAILY 04/24/18 05/10/19 Elemental)] metFORMIN HCL [Glucophage] 500 mg PO BID 10/19/18 05/10/19 Multivitamins, Thera [Multivitamin 1 tab PO DAILY 12/12/18 05/10/19 (formulary)] Thiamine Mononitrate (Vit B1) 100 mg PO DAILY@1200 12/29/18 05/10/19 [Vitamin B-1] Amitriptyline HCl [Elavil] 25 mg PO HS 04/13/19 05/10/19 Acetaminophen Tab [Tylenol] 500 mg PO Q6HR PRN 05/10/19 05/10/19 Previous Rx's Medication Instructions Recorded Magnesium Oxide [Mag-Ox] 400 mg PO DAILY #20 tablet 11/01/18 Pantoprazole Sodium [Protonix] 40 mg PO BID #60 tablet. 11/04/18 Budesonide-Formot 160-4.5 Mcg 2 puff INHALATION RT-BID #1 inh 12/15/18 [Symbicort 160-4.5 Mcg Inhaler] Folic Acid 1 mg PO AC-LUNCH #30 tab 12/15/18 Metoprolol Tartrate [Lopressor] 50 mg PO BID tab 04/18/19 Tamsulosin [Flomax] 0.8 mg PO PC-SUPPER #30 cap.er.24h 04/27/19 cloNIDine HCL [Catapres] 0.1 mg PO BID #60 tab 05/15/19 Allergies Allergy/AdvReac Type Severity Reaction Status Date / Time adhesive tape Allergy Rash/Hives Verified 05/10/19 21:02 latex Allergy Unknown Verified 05/10/19 21:02 egg AdvReac Nausea & Verified 05/10/19 21:02 Vomiting lisinopril AdvReac EYES Verified 05/10/19 21:02 BURN&ITCH/WEAKNESS tomato AdvReac Nausea & Verified 05/10/19 21:02 Vomiting & Diarrhea Review of Systems ROS Statement: Those systems with pertinent positive or pertinent negative responses have been documented in the HPI. ROS Other: All systems not noted in ROS Statement are negative. Past Medical History Past Medical History: Atrial Fibrillation, Chest Pain / Angina, COPD, CVA/TIA, Diabetes Mellitus, GERD/Reflux, GI Bleed, Hearing Disorder / Deafness, Hyperlipidemia, Hypertension, Liver Disease, Pneumonia, Prostate Disorder, Pulmonary Embolus (PE) Additional Past Medical History / Comment(s): Pt recently admitted to [facility] on 04/14/19 with GI bleed and had esophageal varicies banded. Other hx: Alcoholism, alcohol withdrawal DTs and possibly a seizure in 2018 r/t withdrawal, chronic alcoholic cirrhosis with portal hypertension and previous history of upper and lower GI bleeding, esophageal varices, previous history of childhood seizure which he outgrew not taking any antiepileptic medication, pulmonary embolism x 2 R lung, TIA, diverticulosis, chronic lower bilateral extremity ankle edema if he walks alot, previous history of septicemia, cervical disc disease, chronic neck pain, chronic back pain with r sided sciatica, degenerative arthritis involving the lower back, scoliosis, tinnitus, vitamin D deficiency, iron anemia, chronic thrombocytopenia, denies MRSA, C-DIFF -2018, scoliosis, scoliosis History of Any Multi-Drug Resistant Organisms: MRSA Date of last positivie culture/infection: 03/17/18 MDRO Source:: stomach Past Surgical History: Appendectomy, Cholecystectomy Additional Past Surgical History / Comment(s): EGDs/esophageal varicies bandings, colonoscopies. Past Anesthesia/Blood Transfusion Reactions: No Reported Reaction Additional Past Anesthesia/Blood Transfusion Reaction / Comment(s): after appendix removed sob Past Psychological History: Anxiety, Depression Smoking Status: Never smoker - Past Family History Mother Family Medical History: COPD, CVA/TIA, Dementia Additional Family Medical History / Comment(s): from a stroke Father Family Medical History: Pneumonia Additional Family Medical History / Comment(s): Father of pneumonia when he was close to 80 yrs old. General Exam Limitations: no limitations, language barrier General appearance: alert, in distress Head exam: Present: atraumatic, normocephalic, normal inspection Eye exam: Present: normal appearance, PERRL, EOMI. Absent: scleral icterus, conjunctival injection, periorbital swelling ENT exam: Present: normal exam, mucous membranes moist Neck exam: Present: normal inspection. Absent: tenderness, meningismus, lymphadenopathy Respiratory exam: Present: normal lung sounds bilaterally. Absent: respiratory distress, wheezes, rales, rhonchi, stridor Cardiovascular Exam: Present: regular rate, tachycardia, normal heart sounds. Absent: systolic murmur, diastolic murmur, rubs, gallop, clicks GI/Abdominal exam: Present: soft, normal bowel sounds. Absent: distended, tenderness, guarding, rebound, rigid Rectal exam: Present: heme (-) stool, other (multiple ). Absent: black stool, bloody stool (There are multiple condyloma around the anus. No hemorrhoids. No black or tarry stools.) Extremities exam: Present: normal inspection, full ROM, normal capillary refill. Absent: tenderness, pedal edema, joint swelling, calf tenderness Back exam: Present: normal inspection Neurological exam: Present: alert, oriented X3, CN II-XII intact Psychiatric exam: Present: normal affect, normal mood Skin exam: Present: warm, dry, intact, normal color. Absent: rash Course Vital Signs 05/10/19 05/10/19 16:34 19:00 Temperature 97.9 F Pulse Rate 128 H 90 Respiratory 18 18 Rate Blood Pressure 137/90 127/87 O2 Sat by Pulse 96 99 Oximetry Medical Decision Making - Medical Decision Making Upon arrival the patient was placed in room 20. A thorough history and physical exam was performed. I did perform a rectal exam which demonstrates brown stool with no gross blood. PIV is established. The patient was given a liter bolus of normal saline followed by 100 mL per hour. He is given Zofran for nausea. Laboratory studies were conducted. It does demonstrate a hemoglobin of 10.6. Fecal occult is negative. Coags are normal. CMP shows a alk phos of 187. Alcohol is 228. I reevaluated the patient he continues to have nausea. I did give him a dose of Reglan. Patient is once again reevaluated and continues to dry heave. Because of this I did recommend overnight observation for intractable nausea and vomiting. Patient agreed to this. I called and discussed the case with Dr. Segovia who accepted admission for the patient. The patient was placed on [facility] protocol. The patient is currently awaiting a bed on the floor - Lab Data Result diagrams: 05/15/19 07:10 05/15/19 07:10 Lab Results 05/10/19 05/10/19 05/10/19 Range/Units 17:05 17:05 17:05 WBC 6.4 (3.8-10.6) k/uL RBC 4.21 L (4.30-5.90) m/uL Hgb 10.6 L (13.0-17.5) gm/dL Hct 34.3 L (39.0-53.0) % MCV 81.6 (80.0-100.0) fL MCH 25.3 (25.0-35.0) pg MCHC 31.0 (31.0-37.0) g/dL RDW 16.6 H (11.5-15.5) % Plt Count 329 D (150-450) k/uL Neutrophils % 57 % Lymphocytes % 33 % Monocytes % 7 % Eosinophils % 0 % Basophils % 1 % Neutrophils # 3.7 (1.3-7.7) k/uL Lymphocytes # 2.1 (1.0-4.8) k/uL Monocytes # 0.5 (0-1.0) k/uL Eosinophils # 0.0 (0-0.7) k/uL Basophils # 0.0 (0-0.2) k/uL Hypochromasia Marked Anisocytosis Slight PT 11.2 (9.0-12.0) sec INR 1.1 (<1.2) APTT 25.5 (22.0-30.0) sec Sodium 143 (137-145) mmol/L Potassium 4.1 (3.5-5.1) mmol/L Chloride 104 (98-107) mmol/L Carbon Dioxide 24 (22-30) mmol/L Anion Gap 15 mmol/L BUN 7 L (9-20) mg/dL Creatinine 0.72 (0.66-1.25) mg/dL Est GFR (CKD-EPI)AfAm >90 (>60 ml/min/1.73 sqM) Est GFR (CKD-EPI)NonAf >90 (>60 ml/min/1.73 sqM) Glucose 110 H (74-99) mg/dL POC Glucose (mg/dL) (75-99) mg/dL POC Glu Software Product Manager ID Calcium 9.1 (8.4-10.2) mg/dL Total Bilirubin 0.7 (0.2-1.3) mg/dL AST 61 H (17-59) U/L ALT 27 (4-49) U/L Alkaline Phosphatase 187 H (38-126) U/L Total Protein 8.2 (6.3-8.2) g/dL Albumin 3.9 (3.5-5.0) g/dL Lipase 117 (23-300) U/L Urine Color Urine Appearance (Clear) Urine pH (5.0-8.0) Ur Specific [place] (1.001-1.035) Urine Protein (Negative) Urine Glucose (UA) (Negative) Urine Ketones (Negative) Urine Blood (Negative) Urine Nitrite (Negative) Urine Bilirubin (Negative) Urine Urobilinogen (<2.0) mg/dL Ur Leukocyte Esterase (Negative) Stool Occult Blood (Negative) Serum Alcohol 228 H* mg/dL 05/10/19 05/10/19 05/10/19 Range/Units 20:00 21:46 Unknown WBC (3.8-10.6) k/uL RBC (4.30-5.90) m/uL Hgb (13.0-17.5) gm/dL Hct (39.0-53.0) % MCV (80.0-100.0) fL MCH (25.0-35.0) pg MCHC (31.0-37.0) g/dL RDW (11.5-15.5) % Plt Count (150-450) k/uL Neutrophils % % Lymphocytes % % Monocytes % % Eosinophils % % Basophils % % Neutrophils # (1.3-7.7) k/uL Lymphocytes # (1.0-4.8) k/uL Monocytes # (0-1.0) k/uL Eosinophils # (0-0.7) k/uL Basophils # (0-0.2) k/uL Hypochromasia Anisocytosis PT (9.0-12.0) sec INR (<1.2) APTT (22.0-30.0) sec Sodium (137-145) mmol/L Potassium (3.5-5.1) mmol/L Chloride (98-107) mmol/L Carbon Dioxide (22-30) mmol/L Anion Gap mmol/L BUN (9-20) mg/dL Creatinine (0.66-1.25) mg/dL Est GFR (CKD-EPI)AfAm (>60 ml/min/1.73 sqM) Est GFR (CKD-EPI)NonAf (>60 ml/min/1.73 sqM) Glucose (74-99) mg/dL POC Glucose (mg/dL) 130 H (75-99) mg/dL POC Glu Software Product Manager ID Jen Cuevas Calcium (8.4-10.2) mg/dL Total Bilirubin (0.2-1.3) mg/dL AST (17-59) U/L ALT (4-49) U/L Alkaline Phosphatase (38-126) U/L Total Protein (6.3-8.2) g/dL Albumin (3.5-5.0) g/dL Lipase (23-300) U/L Urine Color Yellow Urine Appearance Clear (Clear) Urine pH 6.0 (5.0-8.0) Ur Specific [place] 1.009 (1.001-1.035) Urine Protein Negative (Negative) Urine Glucose (UA) Negative (Negative) Urine Ketones Negative (Negative) Urine Blood Negative (Negative) Urine Nitrite Negative (Negative) Urine Bilirubin Negative (Negative) Urine Urobilinogen <2.0 (<2.0) mg/dL Ur Leukocyte Esterase Negative (Negative) Stool Occult Blood Negative (Negative) Serum Alcohol mg/dL 05/11/19 05/11/19 05/11/19 Range/Units 07:25 08:04 08:04 WBC 4.4 (3.8-10.6) k/uL RBC 3.57 L (4.30-5.90) m/uL Hgb 9.2 L (13.0-17.5) gm/dL Hct 28.7 L (39.0-53.0) % MCV 80.5 (80.0-100.0) fL MCH 25.7 (25.0-35.0) pg MCHC 31.9 (31.0-37.0) g/dL RDW 16.4 H (11.5-15.5) % Plt Count 219 (150-450) k/uL Neutrophils % 63 % Lymphocytes % 27 % Monocytes % 7 % Eosinophils % 1 % Basophils % 1 % Neutrophils # 2.8 (1.3-7.7) k/uL Lymphocytes # 1.2 (1.0-4.8) k/uL Monocytes # 0.3 (0-1.0) k/uL Eosinophils # 0.1 (0-0.7) k/uL Basophils # 0.0 (0-0.2) k/uL Hypochromasia Marked Anisocytosis Slight PT (9.0-12.0) sec INR (<1.2) APTT (22.0-30.0) sec Sodium 134 L (137-145) mmol/L Potassium 3.9 (3.5-5.1) mmol/L Chloride 101 (98-107) mmol/L Carbon Dioxide 26 (22-30) mmol/L Anion Gap 7 mmol/L BUN 8 L (9-20) mg/dL Creatinine 0.69 (0.66-1.25) mg/dL Est GFR (CKD-EPI)AfAm >90 (>60 ml/min/1.73 sqM) Est GFR (CKD-EPI)NonAf >90 (>60 ml/min/1.73 sqM) Glucose 112 H (74-99) mg/dL POC Glucose (mg/dL) 114 H (75-99) mg/dL POC Glu Software Product Manager ID Lizet Avina Calcium 8.7 (8.4-10.2) mg/dL Total Bilirubin (0.2-1.3) mg/dL AST (17-59) U/L ALT (4-49) U/L Alkaline Phosphatase (38-126) U/L Total Protein (6.3-8.2) g/dL Albumin (3.5-5.0) g/dL Lipase (23-300) U/L Urine Color Urine Appearance (Clear) Urine pH (5.0-8.0) Ur Specific [place] (1.001-1.035) Urine Protein (Negative) Urine Glucose (UA) (Negative) Urine Ketones (Negative) Urine Blood (Negative) Urine Nitrite (Negative) Urine Bilirubin (Negative) Urine Urobilinogen (<2.0) mg/dL Ur Leukocyte Esterase (Negative) Stool Occult Blood (Negative) Serum Alcohol mg/dL 05/11/19 05/11/19 05/11/19 Range/Units 11:34 17:33 20:20 WBC (3.8-10.6) k/uL RBC (4.30-5.90) m/uL Hgb (13.0-17.5) gm/dL Hct (39.0-53.0) % MCV (80.0-100.0) fL MCH (25.0-35.0) pg MCHC (31.0-37.0) g/dL RDW (11.5-15.5) % Plt Count (150-450) k/uL Neutrophils % % Lymphocytes % % Monocytes % % Eosinophils % % Basophils % % Neutrophils # (1.3-7.7) k/uL Lymphocytes # (1.0-4.8) k/uL Monocytes # (0-1.0) k/uL Eosinophils # (0-0.7) k/uL Basophils # (0-0.2) k/uL Hypochromasia Anisocytosis PT (9.0-12.0) sec INR (<1.2) APTT (22.0-30.0) sec Sodium (137-145) mmol/L Potassium (3.5-5.1) mmol/L Chloride (98-107) mmol/L Carbon Dioxide (22-30) mmol/L Anion Gap mmol/L BUN (9-20) mg/dL Creatinine (0.66-1.25) mg/dL Est GFR (CKD-EPI)AfAm (>60 ml/min/1.73 sqM) Est GFR (CKD-EPI)NonAf (>60 ml/min/1.73 sqM) Glucose (74-99) mg/dL POC Glucose (mg/dL) 89 96 126 H (75-99) mg/dL POC Glu Software Product Manager ID Lizet Avina Cheryl Frey, Olivia Calcium (8.4-10.2) mg/dL Total Bilirubin (0.2-1.3) mg/dL AST (17-59) U/L ALT (4-49) U/L Alkaline Phosphatase (38-126) U/L Total Protein (6.3-8.2) g/dL Albumin (3.5-5.0) g/dL Lipase (23-300) U/L Urine Color Urine Appearance (Clear) Urine pH (5.0-8.0) Ur Specific [place] (1.001-1.035) Urine Protein (Negative) Urine Glucose (UA) (Negative) Urine Ketones (Negative) Urine Blood (Negative) Urine Nitrite (Negative) Urine Bilirubin (Negative) Urine Urobilinogen (<2.0) mg/dL Ur Leukocyte Esterase (Negative) Stool Occult Blood (Negative) Serum Alcohol mg/dL 05/12/19 Range/Units 06:49 WBC (3.8-10.6) k/uL RBC (4.30-5.90) m/uL Hgb (13.0-17.5) gm/dL Hct (39.0-53.0) % MCV (80.0-100.0) fL MCH (25.0-35.0) pg MCHC (31.0-37.0) g/dL RDW (11.5-15.5) % Plt Count (150-450) k/uL Neutrophils % % Lymphocytes % % Monocytes % % Eosinophils % % Basophils % % Neutrophils # (1.3-7.7) k/uL Lymphocytes # (1.0-4.8) k/uL Monocytes # (0-1.0) k/uL Eosinophils # (0-0.7) k/uL Basophils # (0-0.2) k/uL Hypochromasia Anisocytosis PT (9.0-12.0) sec INR (<1.2) APTT (22.0-30.0) sec Sodium (137-145) mmol/L Potassium (3.5-5.1) mmol/L Chloride (98-107) mmol/L Carbon Dioxide (22-30) mmol/L Anion Gap mmol/L BUN (9-20) mg/dL Creatinine (0.66-1.25) mg/dL Est GFR (CKD-EPI)AfAm (>60 ml/min/1.73 sqM) Est GFR (CKD-EPI)NonAf (>60 ml/min/1.73 sqM) Glucose (74-99) mg/dL POC Glucose (mg/dL) 99 (75-99) mg/dL POC Glu Software Product Manager ID Stacey Lepe Calcium (8.4-10.2) mg/dL Total Bilirubin (0.2-1.3) mg/dL AST (17-59) U/L ALT (4-49) U/L Alkaline Phosphatase (38-126) U/L Total Protein (6.3-8.2) g/dL Albumin (3.5-5.0) g/dL Lipase (23-300) U/L Urine Color Urine Appearance (Clear) Urine pH (5.0-8.0) Ur Specific [place] (1.001-1.035) Urine Protein (Negative) Urine Glucose (UA) (Negative) Urine Ketones (Negative) Urine Blood (Negative) Urine Nitrite (Negative) Urine Bilirubin (Negative) Urine Urobilinogen (<2.0) mg/dL Ur Leukocyte Esterase (Negative) Stool Occult Blood (Negative) Serum Alcohol mg/dL - EKG Data EKG Comments: EKG demonstrates sinus tachycardia with a ventricular rate of 127. MD interval 154. QRS 68. QTC of 450. Q wave in lead 3. No acute ST segment elevations or depressions concerning for ischemic changes Disposition Clinical Impression: Intractable nausea and vomiting, Sinus tachycardia, Alcohol dependence with withdrawal Disposition: ADMITTED IP TO THIS [facility] Condition: Stable Is patient prescribed a controlled substance at d/c from ED?: No Decision to Admit Reason: Admit from EC Decision Date: 05/10/19 Decision Time: 20:21
[2019-05-10] MEDS ORDERED: METOCLOPRAMIDE 5 MG/ML 2 ML VIAL IVP STA ×2 (18:25→20:48)
[2019-05-10 18:50] LABS: INR 1.1 (<1.2); Partial Thromboplastin Time 25.5 sec (22.0-30.0); Prothrombin Time 11.2 sec (9.0-12.0)
[2019-05-10 18:51] LABS: ALT 27 U/L (4-49); AST 61 U/L (17-59); African American GFR (CKD) >90 (>60 ml/min/1.73 sqM); Albumin 3.9 g/dL (3.5-5.0); Alkaline Phosphatase 187 U/L (38-126); Anion Gap 15 mmol/L; Blood Urea Nitrogen 7 mg/dL (9-20); Calcium 9.1 mg/dL (8.4-10.2); Carbon Dioxide 24 mmol/L (22-30); Chloride 104 mmol/L (98-107); Glucose 110 mg/dL (74-99); Non-African American GFR(CKD) >90 (>60 ml/min/1.73 sqM); Potassium 4.1 mmol/L (3.5-5.1); Sodium 143 mmol/L (137-145); Total Bilirubin 0.7 mg/dL (0.2-1.3); Total Protein 8.2 g/dL (6.3-8.2)
[2019-05-10 18:58] LABS: Alcohol 228 mg/dL; Anisocytosis Slight; Basophils % (A) 1 %; Eosinophils % (A) 0 %; HCT 34.3 % (39.0-53.0); HGB 10.6 gm/dL (13.0-17.5); Hypochromasia Marked; Lymphocytes # (A) 2.1 k/uL (1.0-4.8); Lymphocytes % (A) 33 %; MCH 25.3 pg (25.0-35.0); MCV 81.6 fL (80.0-100.0); Mean Platelet Volume 7.8; Monocytes # (A) 0.5 k/uL (0-1.0); Monocytes % (A) 7 %; Neutrophils # (A) 3.7 k/uL (1.3-7.7); Neutrophils % (A) 57 %; RBC 4.21 m/uL (4.30-5.90); RDW 16.6 % (11.5-15.5); WBC 6.4 k/uL (3.8-10.6)
[2019-05-10 18:59] LABS: Platelet Count 329 k/uL (150-450)
[2019-05-10] MEDS ORDERED: NALOXONE 0.4 MG/ML 1 ML VIAL IV PRN (20:10)
[2019-05-10] MEDS ORDERED: LORazepam 2 MG/ML INJ IV PRN (20:15)
[2019-05-10] MEDS ORDERED: THIAMINE 100 MG/ML 2 ML VIAL IM STA (20:15)
[2019-05-10 20:26] LABS: Appearance,Urine Clear (Clear); Bilirubin,Urine Negative (Negative); Blood,Urine Negative (Negative); Color,Urine Yellow; Glucose,Urine (UA) Negative (Negative); Ketones,Urine Negative (Negative); Leukocyte Esterase,Urine Negative (Negative); Nitrite,Urine Negative (Negative); Protein,Urine Negative (Negative); Specific Gravity,Urine 1.009 (1.001-1.035); Urobilinogen,Urine <2.0 mg/dL (<2.0)
[2019-05-10] MEDS: LORazepam 2 MG/ML INJ IV PRN (21:36)
[2019-05-10] MEDS: PANTOPRAZOLE 40 MG TABLET PO SCH (21:40)
[2019-05-10] MEDS: METOPROLOL TARTRATE 50 MG TAB PO SCH (21:40)
[2019-05-10] MEDS: SODIUM CHLORIDE 0.9% 1,000 ML IV SCH (21:43)
[2019-05-10 21:58] LABS: Glucose,Whole Blood 130 mg/dL (75-99)
[2019-05-10] MEDS: INSULIN ASPART (NovoLOG) 100 UNIT/ML VIAL SQ SCH (22:10)
[2019-05-11] MEDS: METOCLOPRAMIDE 5 MG/ML 2 ML VIAL IVP SCH ×3 (00:59→15:24)
[2019-05-11] MEDS: LORazepam 2 MG/ML INJ IV PRN ×3 (01:03→22:04)
[2019-05-11] MEDS ORDERED: THIAMINE 100 MG TAB PO SCH (07:30)
[2019-05-11] MEDS: SODIUM CHLORIDE 0.9% 1,000 ML IV SCH ×2 (07:34→15:24)
[2019-05-11 07:37] LABS: Glucose,Whole Blood 114 mg/dL (75-99)
[2019-05-11] MEDS: SYMBICORT 160-4.5 MCG INHALER INHALATION SCH ×2 (08:08→19:55)
[2019-05-11] MEDS: INSULIN ASPART (NovoLOG) 100 UNIT/ML VIAL SQ SCH ×4 (08:42→21:46)
[2019-05-11 08:44] LABS: Anisocytosis Slight; Basophils % (A) 1 %; Eosinophils # (A) 0.1 k/uL (0-0.7); Eosinophils % (A) 1 %; HCT 28.7 % (39.0-53.0); HGB 9.2 gm/dL (13.0-17.5); Hypochromasia Marked; Lymphocytes # (A) 1.2 k/uL (1.0-4.8); Lymphocytes % (A) 27 %; MCH 25.7 pg (25.0-35.0); MCHC 31.9 g/dL (31.0-37.0); MCV 80.5 fL (80.0-100.0); Mean Platelet Volume 7.3; Monocytes # (A) 0.3 k/uL (0-1.0); Monocytes % (A) 7 %; Neutrophils # (A) 2.8 k/uL (1.3-7.7); Neutrophils % (A) 63 %; Platelet Count 219 k/uL (150-450); RBC 3.57 m/uL (4.30-5.90); RDW 16.4 % (11.5-15.5); WBC 4.4 k/uL (3.8-10.6)
[2019-05-11 08:51] LABS: African American GFR (CKD) >90 (>60 ml/min/1.73 sqM); Anion Gap 7 mmol/L; Blood Urea Nitrogen 8 mg/dL (9-20); Calcium 8.7 mg/dL (8.4-10.2); Carbon Dioxide 26 mmol/L (22-30); Chloride 101 mmol/L (98-107); Glucose 112 mg/dL (74-99); Non-African American GFR(CKD) >90 (>60 ml/min/1.73 sqM); Potassium 3.9 mmol/L (3.5-5.1); Sodium 134 mmol/L (137-145)
[2019-05-11] MEDS: PANTOPRAZOLE 40 MG TABLET PO SCH ×2 (08:57→22:03)
[2019-05-11] MEDS: METOPROLOL TARTRATE 50 MG TAB PO SCH ×2 (08:57→22:03)
[2019-05-11] MEDS: cloNIDine HCL 0.1 MG TAB PO SCH ×2 (08:57→22:04)
[2019-05-11] MEDS ORDERED: PANTOPRAZOLE 40 MG/10 ML VIAL IV SCH (09:00)
[2019-05-11 11:46] LABS: Glucose,Whole Blood 89 mg/dL (75-99)
[2019-05-11 17:45] LABS: Glucose,Whole Blood 96 mg/dL (75-99)
[2019-05-11 20:23] LABS: Glucose,Whole Blood 126 mg/dL (75-99)
--- NOTE | 2019-05-11 21:43 | P.HPIM ---
History of Present Illness H&P Date: 05/11/19 Chief Complaint: withdrawal Anders Aguilar is a 64 yo M with PMH of alcoholism, GI bleed, frequent hospitalizations for the same who presents with nausea, vomiting and abdominal pain today. He states he started drinking again for the past few days and drank a fifth prior to presentation. He denies hematemesis, hematochezia or melena. He tries to abstain from drinking but states he can't resist when his nephew brings alcohol around. In the ED he was initially tachycardic, Hgb 9.2 stable from last admission. He continues to complain of abdominal pain and hiccups today and lacks insight, downplays his drinking and states he has been sober for months when it has been less than 3 weeks since last admission. Review of Systems All systems: negative Constitutional: Reports as per HPI, Reports lethargy, Reports malaise, Denies chills, Denies fever Eyes: denies blurred vision, denies pain Ears, nose, mouth and throat: Denies headache, Denies sore throat Cardiovascular: Denies chest pain, Denies shortness of breath Respiratory: Denies cough Gastrointestinal: Reports as per HPI, Reports abdominal pain, Reports belching, Reports bloating, Reports heartburn, Denies diarrhea, Denies hematemesis, Denies hematochezia, Denies nausea, Denies vomiting Musculoskeletal: Denies myalgias Integumentary: Denies pruritus, Denies rash Neurological: Denies numbness, Denies weakness Psychiatric: Denies anxiety, Denies depression Endocrine: Denies fatigue, Denies weight change Past Medical History Past Medical History: Atrial Fibrillation, Chest Pain / Angina, COPD, CVA/TIA, Diabetes Mellitus, GERD/Reflux, GI Bleed, Hearing Disorder / Deafness, Hyperlipidemia, Hypertension, Liver Disease, Pneumonia, Pulmonary Embolus (PE) Additional Past Medical History / Comment(s): GI bleed, esophageal varicies banded, Alcoholism, alcohol withdrawal DTs and possibly a seizure in 2018 r/t withdrawal, chronic alcoholic cirrhosis with portal hypertension and previous history of upper and lower GI bleeding, esophageal varices, previous history of childhood seizure which he outgrew not taking any antiepileptic medication, pulmonary embolism x 2 L lung, TIA, diverticulosis, chronic lower bilateral extremity ankle edema if he walks alot, previous history of septicemia, cervical disc disease, chronic neck pain, chronic back pain, sciatica, degenerative arthritis involving the lower back, scoliosis, tinnitus, vitamin D deficiency, iron anemia, chronic thrombocytopenia, C-DIFF History of Any Multi-Drug Resistant Organisms: C-DIFF Date of last positivie culture/infection: 08/2018 MDRO Source:: STOOL Past Surgical History: Appendectomy, Cholecystectomy Additional Past Surgical History / Comment(s): EGDs/esophageal varicies bandings, colonoscopies. Past Anesthesia/Blood Transfusion Reactions: No Reported Reaction Additional Past Anesthesia/Blood Transfusion Reaction / Comment(s): after appendix removed sob Past Psychological History: Anxiety, Depression Additional Psychological History / Comment(s): PATIENT LIVES IN APARTMENT ALONE WITH HIS DOG, STATES USES A CANE. He gets to [employer] by [employer] and his sister. He has a nebulizer and a glucometer. Used to work in [employer]. His left him many years ago he has adult children that he does not see very often. No experience Smoking Status: Never smoker Past Alcohol Use History: Abuse, Daily, Heavy Additional Past Alcohol Use History / Comment(s): Pt states he drinks 2 pints of liquor every other day and last drank 05/10/2019 Past Drug Use History: None Reported - Past Family History Mother Family Medical History: COPD, CVA/TIA, Dementia Additional Family Medical History / Comment(s): from a stroke Father Family Medical History: Pneumonia Additional Family Medical History / Comment(s): Father of pneumonia when he was close to 80 yrs old. Medications and Allergies Home Medications Medication Instructions Recorded Confirmed Type cloNIDine HCL [Catapres] 0.1 mg PO BID #60 tab 03/26/18 05/10/19 Rx Ferrous Sulfate [Iron (65 MG 325 mg PO DAILY 04/24/18 05/10/19 History Elemental)] metFORMIN HCL [Glucophage] 500 mg PO BID 10/19/18 05/10/19 History Magnesium Oxide [Mag-Ox] 400 mg PO DAILY #20 tablet 11/01/18 05/10/19 Rx Pantoprazole Sodium [Protonix] 40 mg PO BID #60 tablet. 11/04/18 05/10/19 Rx Multivitamins, Thera [Multivitamin 1 tab PO DAILY 12/12/18 05/10/19 History (formulary)] Budesonide-Formot 160-4.5 Mcg 2 puff INHALATION RT-BID #1 inh 12/15/18 05/10/19 Rx [Symbicort 160-4.5 Mcg Inhaler] Folic Acid 1 mg PO AC-LUNCH #30 tab 12/15/18 05/10/19 Rx Thiamine Mononitrate (Vit B1) 100 mg PO DAILY@1200 12/29/18 05/10/19 History [Vitamin B-1] Amitriptyline HCl [Elavil] 25 mg PO HS 04/13/19 05/10/19 History Metoprolol Tartrate [Lopressor] 50 mg PO BID tab 04/18/19 05/10/19 Rx Tamsulosin [Flomax] 0.8 mg PO PC-SUPPER #30 cap.er.24h 04/27/19 05/10/19 Rx Acetaminophen Tab [Tylenol] 500 mg PO Q6HR PRN 05/10/19 05/10/19 History INSULIN LISPRO (HumaLOG) [humaLOG] See Protocol SQ ACHS 05/10/19 05/10/19 History Allergies Allergy/AdvReac Type Severity Reaction Status Date / Time adhesive tape Allergy Rash/Hives Verified 05/10/19 21:02 latex Allergy Unknown Verified 05/10/19 21:02 egg AdvReac Nausea & Verified 05/10/19 21:02 Vomiting lisinopril AdvReac EYES Verified 05/10/19 21:02 BURN&ITCH/WEAKNESS tomato AdvReac Nausea & Verified 05/10/19 21:02 Vomiting & Diarrhea Physical Exam Vitals: Vital Signs Temp Pulse Resp BP Pulse Ox 05/11/19 19:47 98 F 91 16 137/80 99 05/11/19 15:00 98.5 F 87 18 120/69 96 05/11/19 07:00 98.4 F 83 14 151/83 96 05/11/19 01:15 98.6 F 94 18 144/91 94 L 05/10/19 23:01 130 H 18 05/10/19 21:50 98.0 F 130 H 16 121/77 95 Intake and Output 05/11/19 05/11/19 05/11/19 06:59 14:59 22:59 Intake Total 1600 Balance 1600 Intake: IV 800 Sodium Chloride 0.9% 1, 800 000 ml @ 100 mls/hr IV . Q10H TANYA Rx#:[id number] Oral 800 Other: Voiding Method Toilet # Voids 2 4 Results CBC & Chem 7: 05/11/19 08:04 05/11/19 08:04 Labs: Abnormal Lab Results - Last 24 Hours (Table) 05/10/19 05/11/19 05/11/19 Range/Units 21:46 07:25 08:04 RBC 3.57 L (4.30-5.90) m/uL Hgb 9.2 L (13.0-17.5) gm/dL Hct 28.7 L (39.0-53.0) % RDW 16.4 H (11.5-15.5) % Sodium (137-145) mmol/L BUN (9-20) mg/dL Glucose (74-99) mg/dL POC Glucose (mg/dL) 130 H 114 H (75-99) mg/dL 05/11/19 05/11/19 Range/Units 08:04 20:20 RBC (4.30-5.90) m/uL Hgb (13.0-17.5) gm/dL Hct (39.0-53.0) % RDW (11.5-15.5) % Sodium 134 L (137-145) mmol/L BUN 8 L (9-20) mg/dL Glucose 112 H (74-99) mg/dL POC Glucose (mg/dL) 126 H (75-99) mg/dL Assessment and Plan (1) Anemia of chronic disease Current Visit: Yes Status: Acute Code(s): D63.8 - ANEMIA IN OTHER CHRONIC DISEASES CLASSIFIED ELSEWHERE SNOMED Code(s): 824908104 (2) Alcoholism Current Visit: Yes Status: Acute Code(s): F10.20 - ALCOHOL DEPENDENCE, UNCOMPLICATED SNOMED Code(s): 9977983 (3) GERD (gastroesophageal reflux disease) Current Visit: Yes Status: Acute Code(s): K21.9 - GASTRO-ESOPHAGEAL REFLUX DISEASE WITHOUT ESOPHAGITIS SNOMED Code(s): 703794495 (4) Alcohol dependence with withdrawal Current Visit: Yes Status: Acute Code(s): F10.239 - ALCOHOL DEPENDENCE WITH WITHDRAWAL, UNSPECIFIED SNOMED Code(s): 30875966 (5) Abdominal pain Current Visit: No Status: Acute Code(s): R10.9 - UNSPECIFIED ABDOMINAL PAIN SNOMED Code(s): 50347535 Plan: 1. Alcohol withdrawal. CIWA protocol. Thiamine and folate. Continue protonix bid. Continue clonidine. Social work and case management to assist 2. Paroxysmal atrial fibrillation. Currently in sinus rhythm. Continue me toprolol. Anticoagulation contraindicated with hx GIB and active alcohol abuse 3. Insomina. continue elavil
[2019-05-11] MEDS: AMITRIPTYLINE HCL 25 MG TAB PO SCH (22:03)
[2019-05-12] MEDS: METOCLOPRAMIDE 5 MG/ML 2 ML VIAL IVP SCH ×3 (00:31→16:26)
[2019-05-12] MEDS: LORazepam 2 MG/ML INJ IV PRN ×3 (04:29→16:26)
[2019-05-12 06:50] LABS: Glucose,Whole Blood 99 mg/dL (75-99)
[2019-05-12] MEDS: SODIUM CHLORIDE 0.9% 1,000 ML IV SCH ×3 (08:03→20:13)
[2019-05-12] MEDS: INSULIN ASPART (NovoLOG) 100 UNIT/ML VIAL SQ SCH ×4 (08:04→21:19)
[2019-05-12] MEDS: PANTOPRAZOLE 40 MG TABLET PO SCH ×2 (08:09→20:13)
[2019-05-12] MEDS: cloNIDine HCL 0.1 MG TAB PO SCH ×2 (08:09→20:13)
[2019-05-12] MEDS: METOPROLOL TARTRATE 50 MG TAB PO SCH ×2 (08:09→20:13)
[2019-05-12] MEDS: SYMBICORT 160-4.5 MCG INHALER INHALATION SCH ×2 (08:27→20:19)
[2019-05-12 11:47] LABS: Glucose,Whole Blood 89 mg/dL (75-99)
[2019-05-12 16:49] LABS: Glucose,Whole Blood 94 mg/dL (75-99)
[2019-05-12] MEDS: AMITRIPTYLINE HCL 25 MG TAB PO SCH (20:13)
[2019-05-12 21:13] LABS: Glucose,Whole Blood 80 mg/dL (75-99)
[2019-05-12 21:58] LABS: Glucose,Whole Blood 118 mg/dL (75-99)
--- NOTE | 2019-05-12 23:00 | P.PN ---
Subjective Progress Note Date: 05/12/19 He continues to complain of heartburn and hiccups today but overall better. Denies diaphoresis or tremor. Objective - Vital Signs Vital signs: Vital Signs Temp 98.6 F 05/12/19 21:32 Pulse 81 05/12/19 21:32 Resp 18 05/12/19 21:32 BP 134/79 05/12/19 21:32 Pulse Ox 97 05/12/19 21:32 Intake & Output 05/12/19 05/12/19 05/13/19 06:59 18:59 06:59 Intake Total 510 Balance 510 Intake: Intake, IV Titration 100 Amount Sodium Chloride 0.9% 1, 100 000 ml @ 100 mls/hr IV . Q10H TANYA Rx#:[id number] Oral 410 Other: Voiding Method Toilet Toilet Toilet Urinal Urinal # Voids 2 1 2 - Exam General: well nourished, obese. Vitals reviewed Lungs: normal respiratory effort, no wheezes or rales CV: Regular rate and rhythm, no murmur. Peripheral pulses 2+ Abdomen: soft, nondistended, no organomegaly. nontender Skin: warm and dry. - Labs CBC & Chem 7: 05/11/19 08:04 05/11/19 08:04 Labs: Abnormal Lab Results - Last 24 Hours (Table) 05/12/19 Range/Units 21:57 POC Glucose (mg/dL) 118 H (75-99) mg/dL Assessment and Plan (1) Anemia of chronic disease Current Visit: Yes Status: Acute Code(s): D63.8 - ANEMIA IN OTHER CHRONIC DI SEASES CLASSIFIED ELSEWHERE SNOMED Code(s): 099109859 (2) Alcoholism Current Visit: Yes Status: Acute Code(s): F10.20 - ALCOHOL DEPENDENCE, UNCOMPLICATED SNOMED Code(s): 1079586 (3) GERD (gastroesophageal reflux disease) Current Visit: Yes Status: Acute Code(s): K21.9 - GASTRO-ESOPHAGEAL REFLUX DISEASE WITHOUT ESOPHAGITIS SNOMED Code(s): 255649306 (4) Alcohol dependence with withdrawal Current Visit: Yes Status: Acute Code(s): F10.239 - ALCOHOL DEPENDENCE WITH WITHDRAWAL, UNSPECIFIED SNOMED Code(s): 14787150 (5) Abdominal pain Current Visit: No Status: Acute Code(s): R10.9 - UNSPECIFIED ABDOMINAL PAIN SNOMED Code(s): 47276918 Plan: 1. Alcohol withdrawal. CIWA protocol. Thiamine and folate. Continue protonix bid. Continue clonidine. Social work and case management to assist 2. Paroxysmal atrial fibrillation. Continue metoprolol 3. Insomina. continue elavil
[2019-05-13] MEDS: METOCLOPRAMIDE 5 MG/ML 2 ML VIAL IVP SCH ×4 (00:33→23:57)
[2019-05-13 07:17] LABS: Glucose,Whole Blood 97 mg/dL (75-99)
[2019-05-13] MEDS: SYMBICORT 160-4.5 MCG INHALER INHALATION SCH ×2 (08:13→20:08)
[2019-05-13] MEDS: INSULIN ASPART (NovoLOG) 100 UNIT/ML VIAL SQ SCH ×4 (08:27→21:03)
[2019-05-13] MEDS: PANTOPRAZOLE 40 MG TABLET PO SCH ×2 (08:53→20:09)
[2019-05-13] MEDS: SUCRALFATE 1 GM TAB PO SCH ×3 (08:53→17:15)
[2019-05-13] MEDS: METOPROLOL TARTRATE 50 MG TAB PO SCH ×2 (08:53→20:10)
[2019-05-13] MEDS: cloNIDine HCL 0.1 MG TAB PO SCH ×2 (08:53→20:09)
[2019-05-13] MEDS: SODIUM CHLORIDE 0.9% 1,000 ML IV SCH ×2 (10:07→17:15)
[2019-05-13 11:35] LABS: Glucose,Whole Blood 89 mg/dL (75-99)
[2019-05-13] MEDS: LORazepam 1 MG TAB PO PRN (15:34)
[2019-05-13 16:57] LABS: Glucose,Whole Blood 99 mg/dL (75-99)
[2019-05-13] MEDS ORDERED: ACETAMINOPHEN TAB 500 MG TAB PO PRN (18:43)
[2019-05-13] MEDS: TAMSULOSIN 0.4 MG CAP.ER.24H PO SCH (20:09)
[2019-05-13] MEDS: metFORMIN 500 MG TAB PO SCH (20:09)
[2019-05-13] MEDS: HEPARIN SODIUM,PORCINE 5,000 UNIT/ML 1 ML VIAL SQ SCH (20:10)
[2019-05-13] MEDS: AMITRIPTYLINE HCL 25 MG TAB PO SCH (20:10)
[2019-05-13 20:56] LABS: Glucose,Whole Blood 111 mg/dL (75-99)
--- NOTE | 2019-05-13 21:35 | PN ---
PROGRESS NOTE DATE OF SERVICE: 05/13/2019 I am covering for Dr. Marcus. This 64-year-old gentleman admitted with history of acute alcoholism and alcohol withdrawal has features of early delirium tremens. Patient continues to be confused. The sodium is 134, glucose is elevated at 126. Patient closely monitored. The patient also has some diarrhea. PAST MEDICAL HISTORY: Reviewed. REVIEW OF SYSTEMS: CARDIOVASCULAR SYSTEM: No angina. RESPIRATORY: As mentioned earlier. GI: As mentioned earlier. NERVOUS SYSTEM: Tremors. CURRENT MEDICATIONS: 1. Elavil 25 mg q.h.s. 2. Symbicort 160/4.5 two puffs b.i.d. 3. NovoLog scale. 4. Ativan. 5. P.r.n. 6. CIWA protocol. 7. Reglan. 8. Lopressor. 9. Protonix. 10.Carafate. PHYSICAL EXAM: Patient is alert, oriented x2. Pulse 82, blood pressure 119/76, respiration 12, temperature 97.8, pulse ox 98% on room air. HEENT: Conjunctivae normal. Oral mucosa moist. NECK: No jugular venous distention. No lymph node enlargement. CARDIOVASCULAR: S1, S2. RESPIRATORY: Diminished breath sounds at the bases. Scattered rhonchi and crackles. ABDOMEN: Soft, nontender. LEGS: No edema, no swelling. NERVOUS SYSTEM: Diffusely weak and tremors also present. SKIN: No ulcers. JOINTS: No active deforming arthropathy. LABS: WBC 4.2, hemoglobin 9.2, glucose 126. ASSESSMENT: 1. Acute alcoholic intoxication as well as alcohol withdrawal and early delirium tremens. 2. Anemia of chronic disease. 3. Gastroesophageal reflux disease. 4. Hyponatremia. 5. Change in mental status, metabolic encephalopathy, multifactorial. 6. Increased AST with mild alcoholic hepatitis. 7. Anemia of chronic disease, normocytic. 8. History atrial fibrillation. 9. History of chronic obstructive pulmonary disease. 10.History of cerebrovascular accident, transient ischemic attack. 11.Diabetes mellitus type 2. 12.History of gastrointestinal bleed. 13.Hypertension. 14.Hyperlipidemia. 15.History of chronic liver disease. 16.History of pulmonary embolism. 17.History of esophageal varices and banding. 18.History of ETOH significantly. 19.History of transient ischemic attack. 20.History of diverticulosis. 21.Chronic neck pain. 22.History of Clostridium difficile colitis. 23.Anxiety, depression. PLAN/DISCUSSION: In this 64-year-old gentleman who presented with multiple complex medical issues, at this time I recommend to continue current medications, continue symptomatic treatment, continue with CIWA protocol. I would also recommend Ativan p.r.n. for any agitation occurring in addition to the CIWA monitoring. Otherwise, supplement vitamins. Resume the home medications. I would also recommend DVT prophylaxis because of the patient's family history. We will continue to monitor. The prognosis is guarded because of multiple complex medical issues. The patient also recommended to attend alcoholic rehab as an outpatient. Further recommendations to follow. MMODL / IJN: [id number] /
[2019-05-14 06:49] LABS: Glucose,Whole Blood 101 mg/dL (75-99)
[2019-05-14 08:04] LABS: Anisocytosis Slight; Basophils % (A) 1 %; Eosinophils # (A) 0.1 k/uL (0-0.7); Eosinophils % (A) 4 %; HCT 28.7 % (39.0-53.0); HGB 8.7 gm/dL (13.0-17.5); Hypochromasia Marked; Lymphocytes # (A) 1.3 k/uL (1.0-4.8); Lymphocytes % (A) 45 %; MCH 24.5 pg (25.0-35.0); MCHC 30.3 g/dL (31.0-37.0); MCV 80.9 fL (80.0-100.0); Mean Platelet Volume 7.1; Monocytes # (A) 0.2 k/uL (0-1.0); Monocytes % (A) 6 %; Neutrophils # (A) 1.3 k/uL (1.3-7.7); Neutrophils % (A) 43 %; Platelet Count 172 k/uL (150-450); RBC 3.55 m/uL (4.30-5.90); RDW 17.1 % (11.5-15.5)
[2019-05-14 08:26] LABS: African American GFR (CKD) >90 (>60 ml/min/1.73 sqM); Anion Gap 8 mmol/L; Blood Urea Nitrogen 7 mg/dL (9-20); Calcium 8.6 mg/dL (8.4-10.2); Carbon Dioxide 26 mmol/L (22-30); Chloride 107 mmol/L (98-107); Glucose 95 mg/dL (74-99); Non-African American GFR(CKD) >90 (>60 ml/min/1.73 sqM); Potassium 4.1 mmol/L (3.5-5.1); Sodium 141 mmol/L (137-145)
[2019-05-14] MEDS: METOCLOPRAMIDE 5 MG/ML 2 ML VIAL IVP SCH ×2 (09:08→16:03)
[2019-05-14] MEDS: metFORMIN 500 MG TAB PO SCH ×2 (09:08→17:14)
[2019-05-14] MEDS: HEPARIN SODIUM,PORCINE 5,000 UNIT/ML 1 ML VIAL SQ SCH ×2 (09:08→19:29)
[2019-05-14] MEDS: SUCRALFATE 1 GM TAB PO SCH ×3 (09:09→17:14)
[2019-05-14] MEDS: INSULIN ASPART (NovoLOG) 100 UNIT/ML VIAL SQ SCH ×4 (09:09→20:31)
[2019-05-14] MEDS: MULTIVITAMINS, THERA 1 EACH TAB PO SCH (09:09)
[2019-05-14] MEDS: PANTOPRAZOLE 40 MG TABLET PO SCH ×2 (09:09→19:29)
[2019-05-14] MEDS: METOPROLOL TARTRATE 50 MG TAB PO SCH ×2 (09:09→19:29)
[2019-05-14] MEDS: cloNIDine HCL 0.1 MG TAB PO SCH ×2 (09:09→19:29)
[2019-05-14] MEDS: MAGNESIUM OXIDE 400 MG TAB PO SCH (09:09)
[2019-05-14] MEDS: LORazepam 1 MG TAB PO PRN ×2 (09:16→19:31)
[2019-05-14] MEDS: SYMBICORT 160-4.5 MCG INHALER INHALATION SCH ×2 (09:54→19:39)
[2019-05-14 11:50] LABS: Glucose,Whole Blood 98 mg/dL (75-99)
[2019-05-14] MEDS ORDERED: THIAMINE 100 MG TAB PO SCH (12:00)
[2019-05-14] MEDS ORDERED: FOLIC ACID 1 MG TAB PO SCH (12:30)
[2019-05-14] MEDS: SODIUM CHLORIDE 0.9% 1,000 ML IV SCH (12:41)
--- NOTE | 2019-05-14 16:22 | PN ---
PROGRESS NOTE DATE OF SERVICE: 05/14/2019. I am covering for Dr. Marcus. This 64-year-old gentleman was admitted with acute alcohol intoxication as well as alcohol withdrawal and delirium tremens. Patient had severe diffuse tremors. At this time, patient being closely monitored. Patient also had some gait dysfunction also. The patient is mildly confused. PAST MEDICAL HISTORY: Reviewed. REVIEW OF SYSTEMS: CARDIOVASCULAR SYSTEM: No angina or palpitations. RESPIRATORY: As mentioned earlier. GI no nausea or vomiting. no dysuria. NERVOUS SYSTEMS: No numbness or weakness. Otherwise as mentioned earlier. CURRENT MEDICATIONS: Reviewed and include: 1. Tylenol p.r.n. 2. Elavil 225 mg q.h.s. 3. Symbicort 160/4.5 two puffs b.i.d. 4. Catapres 0.1 p.o. b.i.d. 5. Folic acid 1 mg with lunch. 6. Heparin 5000 subcu b.i.d. 7. NovoLog scale. 8. Ativan p.r.n. CIWA protocol. 9. Magnesium oxide. 10.Glucophage. 11.Reglan. 12.Lopressor. 13.Multivitamins. 14.Narcan. 15.Protonix. 16.Carafate. 17.Flomax. 18.Vitamin B1 doses reviewed. PHYSICAL EXAM: Patient is alert, oriented x2. Pulse 95, blood pressure 112/60, respirations 17, temperature 97.8, pulse ox 97% on room air. HEENT: Conjunctivae normal. Oral mucosa moist. NECK is no jugular venous distention. No carotid bruit. No lymph node enlargement. CARDIOVASCULAR systems: S1, S2 muffled. RESPIRATION: Breath sounds diminished in the bases. A few scattered rhonchi. No crackles. ABDOMEN: Soft, nontender. LEGS are no edema. No swelling. NERVOUS SYSTEM: Diffusely weak and diffuse tremors also present. LABS: WBC 3, hemoglobin 8.7, platelets 172. BUN is 7. Accu-Cheks noted. ASSESSMENT: 1. Acute alcohol intoxication as well as alcohol withdrawal and early delirium tremens. 2. Anemia of chronic disease. 3. Gait dysfunction. 4. Change in mental status, metabolic encephalopathy secondary to delirium tremens. 5. Gastroesophageal reflux disease. 6. Bicytopenia secondary to possibly alcohol. 7. Hyponatremia. 8. Increased AST with mild alcoholic hepatitis. 9. Anemia of chronic disease, normocytic. 10.History atrial fibrillation. 11.History of chronic obstructive pulmonary disease. 12.History of cerebrovascular accident, transient ischemic attack. 13.Diabetes mellitus type 2. 14.History of gastrointestinal bleed. 15.Hypertension. 16.Hyperlipidemia. 17.History of chronic liver disease. 18.History of pulmonary embolism. 19.History of esophageal varices and banding. 20.History of ETOH. 21.History of transient ischemic attack. 22.History of diverticulosis. 23.History of chronic neck pain. 24.History of C difficile colitis. 25.History of anxiety and depression. RECOMMENDATIONS AND DISCUSSION: Recommend to continue current medications, management and symptomatic treatment. Continue with CIWA protocol. Use Ativan. Otherwise PT, OT evaluation. Increase ambulation. Continue with multivitamins. Alcohol cessation recommendation has been given. Patient is still mildly confused. Increase ambulation. Continue the rest of medications including DVT prophylaxis. Current medications were reviewed. Recommend close followup with Dr. Marcus, who will follow the patient tomorrow. MMPREETHIL / RENAEN: [id number] /
[2019-05-14 17:04] LABS: Glucose,Whole Blood 123 mg/dL (75-99)
[2019-05-14] MEDS: TAMSULOSIN 0.4 MG CAP.ER.24H PO SCH (17:14)
[2019-05-14] MEDS: AMITRIPTYLINE HCL 25 MG TAB PO SCH (19:29)
[2019-05-14 20:31] LABS: Glucose,Whole Blood 126 mg/dL (75-99)
[2019-05-14 23:01] VITALS: RESP 16
[2019-05-15] MEDS: METOCLOPRAMIDE 5 MG/ML 2 ML VIAL IVP SCH ×2 (00:20→08:23)
[2019-05-15 07:19] LABS: Glucose,Whole Blood 104 mg/dL (75-99)
[2019-05-15 07:42] LABS: Anisocytosis Slight; Basophils % (A) 0 %; Eosinophils # (A) 0.1 k/uL (0-0.7); Eosinophils % (A) 4 %; HCT 27.4 % (39.0-53.0); HGB 8.4 gm/dL (13.0-17.5); Hypochromasia Marked; Lymphocytes # (A) 1.2 k/uL (1.0-4.8); Lymphocytes % (A) 42 %; MCH 24.8 pg (25.0-35.0); MCHC 30.8 g/dL (31.0-37.0); MCV 80.7 fL (80.0-100.0); Monocytes # (A) 0.2 k/uL (0-1.0); Monocytes % (A) 6 %; Neutrophils # (A) 1.3 k/uL (1.3-7.7); Neutrophils % (A) 45 %; Platelet Count 158 k/uL (150-450); RDW 17.5 % (11.5-15.5); WBC 2.8 k/uL (3.8-10.6)
[2019-05-15] MEDS: INSULIN ASPART (NovoLOG) 100 UNIT/ML VIAL SQ SCH (07:57)
[2019-05-15 08:01] VITALS: BP 122/74; PULSE 93; TEMP 98
[2019-05-15 08:12] LABS: African American GFR (CKD) >90 (>60 ml/min/1.73 sqM); Anion Gap 8 mmol/L; Blood Urea Nitrogen 7 mg/dL (9-20); Calcium 8.6 mg/dL (8.4-10.2); Carbon Dioxide 23 mmol/L (22-30); Chloride 109 mmol/L (98-107); Glucose 92 mg/dL (74-99); Non-African American GFR(CKD) >90 (>60 ml/min/1.73 sqM); Potassium 3.8 mmol/L (3.5-5.1); Sodium 140 mmol/L (137-145)
[2019-05-15] MEDS: metFORMIN 500 MG TAB PO SCH (08:22)
[2019-05-15] MEDS: SODIUM CHLORIDE 0.9% 1,000 ML IV SCH (08:23)
[2019-05-15] MEDS: MAGNESIUM OXIDE 400 MG TAB PO SCH (08:23)
[2019-05-15] MEDS: SUCRALFATE 1 GM TAB PO SCH (08:23)
[2019-05-15] MEDS: METOPROLOL TARTRATE 50 MG TAB PO SCH (08:23)
[2019-05-15] MEDS: cloNIDine HCL 0.1 MG TAB PO SCH (08:23)
[2019-05-15] MEDS: HEPARIN SODIUM,PORCINE 5,000 UNIT/ML 1 ML VIAL SQ SCH (08:23)
[2019-05-15] MEDS: MULTIVITAMINS, THERA 1 EACH TAB PO SCH (08:24)
[2019-05-15] MEDS: PANTOPRAZOLE 40 MG TABLET PO SCH (08:24)
[2019-05-15] MEDS: SYMBICORT 160-4.5 MCG INHALER INHALATION SCH (09:50)
== END 2019-05-15 12:15 | disposition home health service (06) | DRG 896 ==
LOC: EC 16:30 → 4SSUR 20:10 → OBSVTOIN 05-12 09:08
PROVIDERS: ADMIT Family Medicine; ATTEND Family Medicine
DX: F10.231 Alcohol dependence with withdrawal delirium (principal); G93.41 Metabolic encephalopathy; E87.1 Hypo-osmolality and hyponatremia; D63.8 Anemia in other chronic diseases classified elsewhere; K70.10 Alcoholic hepatitis without ascites; Y90.7 Blood alcohol level of 200-239 mg/100 ml; E11.9 Type 2 diabetes mellitus without complications; J44.9 Chronic obstructive pulmonary disease, unspecified; E55.9 Vitamin D deficiency, unspecified; I48.0 Paroxysmal atrial fibrillation; I10 Essential (primary) hypertension; K57.90 Diverticulosis of intestine, part unspecified, without perforation or abscess without bleeding; H91.90 Unspecified hearing loss, unspecified ear; E78.5 Hyperlipidemia, unspecified; F32.9 Major depressive disorder, single episode, unspecified; F41.9 Anxiety disorder, unspecified; N42.9 Disorder of prostate, unspecified; M51.17 Intervertebral disc disorders with radiculopathy, lumbosacral region; M54.2 Cervicalgia; G89.29 Other chronic pain; K21.9 Gastro-esophageal reflux disease without esophagitis; R26.9 Unspecified abnormalities of gait and mobility; Z79.4 Long term (current) use of insulin; Z79.51 Long term (current) use of inhaled steroids; Z79.899 Other long term (current) drug therapy; Z86.73 Personal history of transient ischemic attack (TIA), and cerebral infarction without residual deficits; Z87.01 Personal history of pneumonia (recurrent); Z86.711 Personal history of pulmonary embolism; Z90.49 Acquired absence of other specified parts of digestive tract; Z86.14 Personal history of Methicillin resistant Staphylococcus aureus infection; Z86.69 Personal history of other diseases of the nervous system and sense organs; Z86.19 Personal history of other infectious and parasitic diseases; Z87.19 Personal history of other diseases of the digestive system; Z91.012 Allergy to eggs; Z91.040 Latex allergy status; Z88.8 Allergy status to other drugs, medicaments and biological substances; Z91.018 Allergy to other foods; Z91.048 Other nonmedicinal substance allergy status; Z82.3 Family history of stroke; Z82.5 Family history of asthma and other chronic lower respiratory diseases; Z81.8 Family history of other mental and behavioral disorders
CPT/HCPCS: 36415; 80048; 80053; 80320; 81003; 82272; 83690; 85025; 85610; 85730; 93005; 94640; 96361; 96374; 96375; 99285

== ENCOUNTER 2019-05-21 16:15 | Inpatient (IN) | payer OTHER ==
[2019-05-21] MEDS ORDERED: LORazepam 2 MG/ML INJ IV STA (16:46)
[2019-05-21] MEDS ORDERED: SODIUM CHLORIDE 0.9% 500 ML 500 ML IV STA (16:46)
[2019-05-21] MEDS ORDERED: ONDANSETRON 4 MG/2 ML VIAL IVP STA (16:46)
[2019-05-21] MEDS ORDERED: SODIUM CHLORIDE 0.9% 1,000 ML IV STA ×3 (16:46→17:57)
[2019-05-21 17:05] LABS: Anisocytosis Slight; Basophils % (A) 0 %; Eosinophils % (A) 0 %; HCT 30.4 % (39.0-53.0); HGB 9.5 gm/dL (13.0-17.5); Hypochromasia Moderate; Lymphocytes # (A) 0.8 k/uL (1.0-4.8); Lymphocytes % (A) 21 %; MCH 24.8 pg (25.0-35.0); MCHC 31.4 g/dL (31.0-37.0); Mean Platelet Volume 8.3; Microcytosis Slight; Monocytes # (A) 0.3 k/uL (0-1.0); Monocytes % (A) 9 %; Neutrophils # (A) 2.7 k/uL (1.3-7.7); Neutrophils % (A) 69 %; Platelet Count 113 k/uL (150-450); RBC 3.84 m/uL (4.30-5.90)
[2019-05-21 17:16] LABS: ALT 25 U/L (4-49); AST 66 U/L (17-59); African American GFR (CKD) >90 (>60 ml/min/1.73 sqM); Albumin 3.7 g/dL (3.5-5.0); Alkaline Phosphatase 186 U/L (38-126); Anion Gap 14 mmol/L; Blood Urea Nitrogen 5 mg/dL (9-20); Calcium 8.6 mg/dL (8.4-10.2); Carbon Dioxide 26 mmol/L (22-30); Chloride 102 mmol/L (98-107); Creatine Kinase 90 U/L (55-170); Glucose 116 mg/dL (74-99); Magnesium 1.3 mg/dL (1.6-2.3); Non-African American GFR(CKD) >90 (>60 ml/min/1.73 sqM); Phosphorus 2.7 mg/dL (2.5-4.5); Potassium 3.3 mmol/L (3.5-5.1); Sodium 142 mmol/L (137-145); Total Bilirubin 0.8 mg/dL (0.2-1.3); Total Protein 7.6 g/dL (6.3-8.2)
[2019-05-21 17:18] LABS: Alcohol 125 mg/dL
[2019-05-21 17:19] LABS: Lactic Acid, Venous 5.8 mmol/L (0.7-2.0)
[2019-05-21 17:22] LABS: INR 1.3 (<1.2); Partial Thromboplastin Time 24.6 sec (22.0-30.0); Prothrombin Time 13.2 sec (9.0-12.0)
--- NOTE | 2019-05-21 17:27 | ED ---
Chest Pain HPI - General Chief Complaint: Chest Pain Stated Complaint: Chest pain Time Seen by Provider: 05/21/19 16:32 Source: patient, EMS, RN notes reviewed, old records reviewed, Caregiver Mode of arrival: EMS Limitations: no limitations - History of Present Illness Initial Comments: This is a 64-year-old male here for evaluation. Patient does admit to history of alcohol abuse. Patient is well known to our facility for alcoholism history of alcohol abuse. Patient also complaining of chest pain today and other issue that he has history of. Patient coming in with chest pain and admits to drinking 2 days ago. Patient has mild nausea no vomiting or shortness of breath no fevers. No significant abdominal pain, no recent travel history or sick contacts MD Complaint: chest pain, other (Weakest feeling well nausea and vomiting) -: days(s) Onset: during rest, awoke with symptoms Pain Location: substernal Pain Radiation: none Severity: moderate Severity scale (1-10): 6 Quality: tightness, aching Consistency: constant Improves With: nothing Worsens With: nothing Context: recent illness, other (Significant alcohol abuse) Anginal Symptoms: nausea, vomiting, dyspnea Treatments Prior to Arrival: none - Related Data Home Medications Medication Instructions Recorded Confirmed Ferrous Sulfate [Iron (65 MG 325 mg PO DAILY 04/24/18 05/21/19 Elemental)] metFORMIN HCL [Glucophage] 500 mg PO BID 10/19/18 05/21/19 Multivitamins, Thera [Multivitamin 1 tab PO DAILY 12/12/18 05/21/19 (formulary)] Thiamine Mononitrate (Vit B1) 100 mg PO DAILY@1200 12/29/18 05/21/19 [Vitamin B-1] Amitriptyline HCl [Elavil] 25 mg PO HS 04/13/19 05/21/19 Acetaminophen Tab [Tylenol] 500 mg PO Q6HR PRN 05/10/19 05/21/19 Previous Rx's Medication Instructions Recorded Magnesium Oxide [Mag-Ox] 400 mg PO DAILY #20 tablet 11/01/18 Pantoprazole Sodium [Protonix] 40 mg PO BID #60 tablet. 11/04/18 Budesonide-Formot 160-4.5 Mcg 2 puff INHALATION RT-BID #1 inh 12/15/18 [Symbicort 160-4.5 Mcg Inhaler] Folic Acid 1 mg PO AC-LUNCH #30 tab 12/15/18 Metoprolol Tartrate [Lopressor] 50 mg PO BID tab 04/18/19 Tamsulosin [Flomax] 0.8 mg PO PC-SUPPER #30 cap.er.24h 04/27/19 cloNIDine HCL [Catapres] 0.1 mg PO BID #60 tab 05/15/19 Allergies Allergy/AdvReac Type Severity Reaction Status Date / Time adhesive tape Allergy Rash/Hives Verified 05/21/19 19:03 latex Allergy Unknown Verified 05/21/19 19:03 egg AdvReac Nausea & Verified 05/21/19 19:03 Vomiting lisinopril AdvReac EYES Verified 05/21/19 19:03 BURN&ITCH/WEAKNESS tomato AdvReac Nausea & Verified 05/21/19 19:03 Vomiting & Diarrhea Review of Systems ROS Statement: Those systems with pertinent positive or pertinent negative responses have been documented in the HPI. ROS Other: All systems not noted in ROS Statement are negative. EKG Findings - EKG Comments: EKG Findings:: EKG shows sinus tach [place] 1:30, pr 140, QRS 66, QTC 565 Past Medical History Past Medical History: Atrial Fibrillation, Chest Pain / Angina, COPD, CVA/TIA, Diabetes Mellitus, GERD/Reflux, GI Bleed, Hearing Disorder / Deafness, Hy perlipidemia, Hypertension, Liver Disease, Pneumonia, Prostate Disorder, Pulmonary Embolus (PE) Additional Past Medical History / Comment(s): Pt recently admitted to [facility] on 1 06/14/18 with GI bleed and had esophageal varicies banded. Other hx: Alcoholism, alcohol withdrawal DTs and possibly a seizure in 2018 r/t withdrawal, chronic alcoholic cirrhosis with portal hypertension and previous history of upper and lower GI bleeding, esophageal varices, previous history of childhood seizure which he outgrew not taking any antiepileptic medication, pulmonary embolism x 2 R lung, TIA, diverticulosis, chronic lower bilateral extremity ankle edema if he walks alot, previous history of septicemia, cervical disc disease, chronic neck pain, chronic back pain with r sided sciatica, degenerative arthritis involving the lower back, scoliosis, tinnitus, vitamin D deficiency, iron anemia, chronic thrombocytopenia, denies MRSA, C-DIFF -2018, scoliosis, scoliosis History of Any Multi-Drug Resistant Organisms: MRSA Date of last positivie culture/infection: 03/17/18 MDRO Source:: stomach Past Surgical History: Appendectomy, Cholecystectomy Additional Past Surgical History / Comment(s): EGDs/esophageal varicies bandings, colonoscopies. Past Anesthesia/Blood Transfusion Reactions: No Reported Reaction Additional Past Anesthesia/Blood Transfusion Reaction / Comment(s): after appendix removed sob Past Psychological History: Anxiety, Depression Smoking Status: Never smoker Past Alcohol Use History: Heavy Past Drug Use History: None Reported - Past Family History Mother Family Medical History: COPD, CVA/TIA, Dementia Additional Family Medical History / Comment(s): from a stroke Father Family Medical History: Pneumonia Additional Family Medical History / Comment(s): Father of pneumonia when he was close to 80 yrs old. General Exam Limitations: no limitations General appearance: alert, anxious, in distress Head exam: Present: atraumatic, normocephalic, normal inspection Eye exam: Present: normal appearance, PERRL, EOMI. Absent: scleral icterus, conjunctival injection, periorbital swelling ENT exam: Present: normal exam, mucous membranes moist Neck exam: Present: normal inspection. Absent: tenderness, meningismus, lymphadenopathy Respiratory exam: Present: normal lung sounds bilaterally. Absent: respiratory distress, wheezes, rales, rhonchi, stridor Cardiovascular Exam: Present: normal rhythm, tachycardia, normal heart sounds. Absent: systolic murmur, diastolic murmur, rubs, gallop, clicks GI/Abdominal exam: Present: soft, normal bowel sounds. Absent: distended, tenderness, guarding, rebound, rigid Extremities exam: Present: normal inspection, full ROM, normal capillary refill. Absent: tenderness, pedal edema, joint swelling, calf tenderness Back exam: Present: normal inspection Neurological exam: Present: alert, oriented X3, CN II-XII intact Psychiatric exam: Present: normal affect, normal mood Skin exam: Present: warm, dry, intact, normal color. Absent: rash Course Vital Signs 05/21/19 05/21/19 05/21/19 16:38 16:47 17:03 Temperature 98.2 F Pulse Rate 129 H 125 H Pulse Rate [ 129 H Sustainability Specialist ] Respiratory 20 20 Rate Blood Pressure 127/90 147/86 O2 Sat by Pulse 97 96 Oximetry 05/21/19 18:23 Temperature 98.2 F Pulse Rate 126 H Pulse Rate [ Sustainability Specialist ] Respiratory 20 Rate Blood Pressure 121/85 O2 Sat by Pulse 97 Oximetry - Reevaluation(s) Reevaluation #1: 05/21/19 18:01 Medical record review Reevaluation #2: 05/21/19 20:02 Patient continued to feel sick, no other, weak nausea with chest pain - Consultations Consultation #1: spoke w EM will admit Chest Pain MDM - MDM 64 male here for evaluation of chest pain nausea vomiting alcohol ketoacidosis will admit for IV hydration symptom management Disposition Clinical Impression: Alcohol dependence, Alcohol dependence with withdrawal, Chronic pain, Chest pain, Alcoholic ketoacidosis Disposition: ADMITTED IP TO THIS HOSP Condition: Undetermined Instructions (If sedation given, give patient instructions): Chest Pain (ED) Referrals: Yoon Phillips DO [Primary Care Provider] - 1-2 days
--- NOTE | 2019-05-21 17:28 | XR ---
EXAMINATION TYPE: XR chest 2V DATE OF EXAM: 05/21/2019 COMPARISON: 04/05/2019 INDICATION: Weakness TECHNIQUE: Frontal and lateral views of the chest are obtained. FINDINGS: The heart size is normal. The pulmonary vasculature is normal. Small nodular density may be the periphery of the left lung measuring 0.6 cm. This may be an interval change. This could be a summation density. There is some mild diffuse increased lung markings on the left compared to previous. The patient is rotated to the right accentuating the findings.. Old left humeral fracture is noted IMPRESSION: 1. Mild increased lung markings within the left lung may be artifact due to rotation. Small nodule in the periphery left lung is not excluded. Follow-up is recommended.
[2019-05-21] MEDS ORDERED: THIAMINE 100 MG TAB PO SCH (17:30)
[2019-05-21] MEDS ORDERED: THIAMINE 100 MG/ML 2 ML VIAL IM STA ×2 (17:57→20:01)
[2019-05-21] MEDS ORDERED: LORazepam 2 MG/ML INJ IV PRN ×6 (17:57→20:01)
[2019-05-21] MEDS: THIAMINE 100 MG TAB PO SCH (18:14)
[2019-05-21] MEDS ORDERED: ASPIRIN 81 MG PO STA (20:01)
[2019-05-21] MEDS ORDERED: NITROGLYCERIN SL TABS 0.4 MG TAB SUBLINGUAL PRN (20:01)
[2019-05-21 20:45] LABS: Appearance,Urine Clear (Clear); Bilirubin,Urine Negative (Negative); Blood,Urine Small (Negative); Color,Urine Yellow; Glucose,Urine (UA) Negative (Negative); Ketones,Urine 1+ (Negative); Leukocyte Esterase,Urine Negative (Negative); Mucus,Urine Rare /hpf; Nitrite,Urine Negative (Negative); PH, Urine 6.5 (5.0-8.0); Protein,Urine 1+ (Negative); RBC,Urine 6 /hpf (0-5); WBC,Urine 1 /hpf (0-5)
[2019-05-21] MEDS: SODIUM CHLORIDE 0.9% 1,000 ML IV SCH (20:52)
[2019-05-21] MEDS ORDERED: ACETAMINOPHEN TAB 500 MG TAB PO PRN (21:45)
[2019-05-21] MEDS ORDERED: ONDANSETRON 4 MG/2 ML VIAL IVP PRN (21:47)
[2019-05-21] MEDS ORDERED: TEMAZEPAM 15 MG CAP PO PRN (21:48)
[2019-05-21] MEDS ORDERED: HYDROcodone/APAP 5-325MG 1 EACH TAB PO PRN (21:48)
[2019-05-21] MEDS ORDERED: HYDROmorphone 0.5 MG/0.5 ML SYRINGE IVP PRN (21:48)
[2019-05-21] MEDS ORDERED: Potassium Replacement Protocol 1 EACH MISC MISCELLANE PRN (21:48)
[2019-05-21] MEDS ORDERED: Magnesium Replacement Protocol 1 EACH MISC MISCELLANE PRN (21:48)
[2019-05-21] MEDS: PANTOPRAZOLE 40 MG/10 ML VIAL IVP SCH (22:26)
[2019-05-21] MEDS: cloNIDine HCL 0.1 MG TAB PO SCH (22:26)
[2019-05-21] MEDS: MAGNESIUM SULFATE-D5W PMX 1 GM in DEXTROSE/WATER 1 100ML.BAG IVPB SCH (22:26)
[2019-05-21] MEDS: POTASSIUM CHLORIDE ER 20 MEQ TAB.ER PO SCH (22:26)
[2019-05-22] MEDS: MAGNESIUM SULFATE-D5W PMX 1 GM in DEXTROSE/WATER 1 100ML.BAG IVPB SCH ×2 (00:03→01:37)
[2019-05-22] MEDS: POTASSIUM CHLORIDE ER 20 MEQ TAB.ER PO SCH (00:03)
[2019-05-22] MEDS: SODIUM CHLORIDE 0.9% 1,000 ML IV SCH ×3 (04:11→16:51)
[2019-05-22 04:15] LABS: Anisocytosis Slight; Basophils % (A) 0 %; Eosinophils # (A) 0.1 k/uL (0-0.7); Eosinophils % (A) 3 %; HGB 8.3 gm/dL (13.0-17.5); Hypochromasia Moderate; Lymphocytes % (A) 31 %; MCH 24.2 pg (25.0-35.0); MCHC 30.6 g/dL (31.0-37.0); MCV 79.1 fL (80.0-100.0); Mean Platelet Volume 8.4; Microcytosis Slight; Monocytes # (A) 0.2 k/uL (0-1.0); Monocytes % (A) 6 %; Neutrophils # (A) 1.8 k/uL (1.3-7.7); Neutrophils % (A) 58 %; RBC 3.41 m/uL (4.30-5.90); WBC 3.1 k/uL (3.8-10.6)
[2019-05-22 04:27] LABS: ALT 21 U/L (4-49); AST 57 U/L (17-59); African American GFR (CKD) >90 (>60 ml/min/1.73 sqM); Albumin 2.9 g/dL (3.5-5.0); Alkaline Phosphatase 160 U/L (38-126); Anion Gap 4 mmol/L; Blood Urea Nitrogen 6 mg/dL (9-20); Carbon Dioxide 29 mmol/L (22-30); Chloride 105 mmol/L (98-107); Cholesterol 148 mg/dL (<200); Glucose 107 mg/dL (74-99); HDL Cholesterol 42 mg/dL (40-60); LDL Cholesterol,Calculated 91 mg/dL (0-99); Magnesium 2.2 mg/dL (1.6-2.3); Non-African American GFR(CKD) >90 (>60 ml/min/1.73 sqM); Potassium 3.7 mmol/L (3.5-5.1); Sodium 138 mmol/L (137-145); Total Bilirubin 0.9 mg/dL (0.2-1.3); Total Protein 6.5 g/dL (6.3-8.2); Triglycerides 77 mg/dL (<150)
[2019-05-22 04:43] LABS: Platelet Count 85 k/uL (150-450)
[2019-05-22 06:11] LABS: Glucose,Whole Blood 124 mg/dL (75-99)
--- NOTE | 2019-05-22 06:27 | HP ---
HISTORY AND PHYSICAL CHIEF COMPLAINT: Chest pain, vomiting, and alcoholism. HISTORY OF PRESENT ILLNESS: This 64-year-old gentleman with a past medical history of multiple medical problems including history of atrial fibrillation, history of COPD, CVA, diabetes mellitus, GI bleed, history of hypertension, hyperlipidemia, being followed by Dr. Yoon Phillips and Dr. Amaya in the outpatient setting was complaining of vomiting. The patient apparently drinks alcohol significantly and patient also complaining of chest pain which was left-sided after vomiting and the patient came to [facility] admitted for further evaluation and treatment. The patient was recently admitted to [facility] with complaints of alcohol withdrawal and DTs and possible seizures. Also currently the patient is slightly confused, otherwise able to give a sketchy history. There is no history of radiation of pain elsewhere. There is no history of fever, rigors, chills. Evaluation in the ER showed lactic acid elevated at 5.8. The patient also had possibly some ketosis also as well as vomiting and the patient has been admitted for further evaluation and treatment. There is no history of any fever, rigors or chills. No history of headache, loss of consciousness, seizures at this time. PAST MEDICAL HISTORY: History of atrial fibrillation, COPD, CVA, TIA, diabetes mellitus type 2, GERD, GI bleed, hypertension, history of liver disease. MEDICATIONS: Home medications are as follows: 1. Metformin 500 mg p.o. b.i.d. 2. Catapres 0.1 p.o. b.i.d. 3. Vitamin B1, 100 mg p.o. daily. 4. Flomax 0.8 q. Supper. 5. Protonix 40 mg p.o. b.i.d. 6. Multivitamins 1 p.o. daily. 7. Lopressor 50 mg p.o. b.i.d. 8. Magnesium oxide 400 mg p.o. daily. 9. Folic acid 1 mg daily. 10.Iron 325 mg p.o. daily. 11.Symbicort 160/4.5 two puffs b.i.d. 12.Elavil 25 mg at bedtime. 13.Tylenol p.r.n. ALLERGIES: Allergies are ADHESIVE TAPES, LATEX, EGG, LISINOPRIL, TOMATO. FAMILY HISTORY: History of COPD, CVA, TIA, dementia. SOCIAL HISTORY: No history of smoking. Alcohol intake as mentioned. REVIEW OF SYSTEMS: ENT: No diminished hearing or diminished vision. CARDIOVASCULAR SYSTEM: As mentioned earlier. RESPIRATORY SYSTEM: As mentioned earlier. GI: As mentioned earlier. : No dysuria. NERVOUS SYSTEM: No numbness or weakness. ALLERGY/IMMUNOLOGY: No asthma or hayfever. MUSCULOSKELETAL: As mentioned earlier. HEMATOLOGY/ONCOLOGY: No history of anemia. ENDOCRINE: Diabetes. CONSTITUTIONAL: As mentioned earlier. DERMATOLOGY: Negative. RHEUMATOLOGY: Negative. PSYCHIATRY: As mentioned earlier. PHYSICAL EXAMINATION: The patient is alert and oriented x3. Pulse is 125, blood pressure 147/86, respiration 20, temperature 98.2, pulse ox 97% on room air. HEENT: Conjunctivae normal. Oral mucosa moist. NECK: Is no jugular venous distention. No carotid bruit. No lymph node enlargement. CARDIOVASCULAR: S1, S2 muffled. RESPIRATORY: Breath sounds diminished at the bases. Bilateral scattered rhonchi and crackles. ABDOMEN: Soft, mildly diffuse discomfort on palpation. No guarding, no rigidity. No mass palpable. LEGS: No edema, no swelling. NERVOUS SYSTEM: Higher functions as mentioned earlier. Moves all 4 limbs. No focal motor or sensory deficits. LYMPHATICS: No lymphadenopathy of the neck, axillae or groin. SKIN: No ulcer, rash or bleeding. JOINTS: No active deforming arthropathy. LABS: Labs are at this time shows labs are WBC 4, hemoglobin 9.5, platelets 113. Sodium 142, potassium 3.3. Lactic acid 5.8 and magnesium 1.3. ASSESSMENT: 1. Chest pain for evaluation, rule out unstable angina. 2. Vomiting, possibly acute gastritis. 3. History of alcoholism. 4. Elevated lactic acid. 5. Ketosis, possibly secondary to vomiting and starvation ketosis. 6. Hypokalemia. 7. Hypomagnesemia. 8. Mild coagulopathy secondary to chronic liver disease possibly. 9. Anemia, microcytic. 10.Thrombocytopenia. 11.Decreased TSH. 12.Alcohol intoxication. 13.History of delirium tremens. 14.History of atrial fibrillation. 15.History of chronic obstructive pulmonary disease. 16.Cerebrovascular accident , transient ischemic attack. 17.History of diabetes mellitus type 2. 18.History of gastroesophageal reflux disease. 19.History of gastrointestinal bleed. 20.Hyperlipidemia. 21.Hypertension. 22.History of liver disease. 23.Prostate disorder. 24.History of pulmonary embolism. 25.History of delirium tremens. 26.History of esophageal varices and banding. 27.History of alcohol withdrawal seizures. 28.History of portal hypertension. 29.History of childhood seizures. 30.History of transient ischemic attack. 31.History of vitamin D deficiency. 32.History of methicillin-resistant Staphylococcus aureus. 33.History of Clostridium difficile. 34.History of scoliosis. 35.History of appendectomy. 36.History of cholecystectomy. 37.Anxiety, depression. 38.Mild to moderate protein calorie malnutrition. RECOMMENDATIONS AND DISCUSSION: This 64-year-old gentleman who presented with multiple complex medical issues as mentioned earlier, we will monitor the patient closely. Continue the current medications. Continue symptomatic treatment. We will initiate CIWA protocol. Symptomatic treatment for the vomiting will be provided. Repeat labs. The patient also had evidence of ketosis. I would continue with IV fluids and there is no evidence of infection , but however we will send out cultures. Continue to monitor. Repeat labs. The overall prognosis extremely guarded because of multiple complex medical issues. Home medications will be restarted and Dr. Marcus will follow. A copy of dictation forwarded to Dr. Yoon Phillips. MMPREETHIL / IJN: [id number] / YANIV
[2019-05-22] MEDS: THIAMINE 100 MG TAB PO SCH ×2 (06:34→16:52)
[2019-05-22] MEDS: INSULIN ASPART (NovoLOG) 100 UNIT/ML VIAL SQ SCH ×4 (06:34→21:50)
[2019-05-22] MEDS ORDERED: METOCLOPRAMIDE 5 MG TAB PO PRN (08:57)
[2019-05-22] MEDS: METOPROLOL TARTRATE 50 MG TAB PO SCH ×2 (09:37→21:49)
[2019-05-22] MEDS: PANTOPRAZOLE 40 MG/10 ML VIAL IVP SCH ×2 (09:37→21:49)
[2019-05-22] MEDS: cloNIDine HCL 0.1 MG TAB PO SCH ×2 (09:37→21:49)
[2019-05-22] MEDS: MULTIVITAMINS, THERA 1 EACH TAB PO SCH (09:37)
[2019-05-22] MEDS: MAGNESIUM OXIDE 400 MG TAB PO SCH (09:37)
[2019-05-22] MEDS: ASPIRIN 325 MG TAB PO SCH (09:37)
[2019-05-22 12:29] LABS: Glucose,Whole Blood 142 mg/dL (75-99)
[2019-05-22] MEDS: SUCRALFATE 1 GM TAB PO SCH ×2 (13:15→16:52)
[2019-05-22] MEDS: FOLIC ACID 1 MG TAB PO SCH (13:15)
[2019-05-22 17:14] LABS: Glucose,Whole Blood 90 mg/dL (75-99)
[2019-05-22] MEDS ORDERED: TAMSULOSIN 0.4 MG CAP.ER.24H PO SCH (18:30)
[2019-05-22] MEDS ORDERED: AMITRIPTYLINE HCL 25 MG TAB PO SCH (21:00)
[2019-05-22 21:03] LABS: Glucose,Whole Blood 105 mg/dL (75-99)
[2019-05-23 06:06] LABS: Glucose,Whole Blood 114 mg/dL (75-99)
[2019-05-23 06:42] LABS: ALT 19 U/L (4-49); AST 53 U/L (17-59); African American GFR (CKD) >90 (>60 ml/min/1.73 sqM); Albumin 2.6 g/dL (3.5-5.0); Alkaline Phosphatase 135 U/L (38-126); Anion Gap 4 mmol/L; Blood Urea Nitrogen 4 mg/dL (9-20); Calcium 7.9 mg/dL (8.4-10.2); Carbon Dioxide 28 mmol/L (22-30); Chloride 108 mmol/L (98-107); Glucose 104 mg/dL (74-99); Non-African American GFR(CKD) >90 (>60 ml/min/1.73 sqM); Potassium 3.5 mmol/L (3.5-5.1); Sodium 140 mmol/L (137-145); Total Bilirubin 0.9 mg/dL (0.2-1.3)
[2019-05-23] MEDS: THIAMINE 100 MG TAB PO SCH (06:52)
[2019-05-23] MEDS: SUCRALFATE 1 GM TAB PO SCH ×2 (06:52→11:52)
[2019-05-23] MEDS: SODIUM CHLORIDE 0.9% 1,000 ML IV SCH ×3 (06:53→11:52)
[2019-05-23 06:59] LABS: Anisocytosis Slight; Basophils % (A) 1 %; Eosinophils # (A) 0.1 k/uL (0-0.7); Eosinophils % (A) 5 %; HCT 26.1 % (39.0-53.0); HGB 7.8 gm/dL (13.0-17.5); Hypochromasia Marked; Lymphocytes # (A) 1.2 k/uL (1.0-4.8); Lymphocytes % (A) 49 %; MCH 24.2 pg (25.0-35.0); MCHC 29.9 g/dL (31.0-37.0); Mean Platelet Volume 7.7; Monocytes # (A) 0.1 k/uL (0-1.0); Monocytes % (A) 6 %; Neutrophils # (A) 0.9 k/uL (1.3-7.7); Neutrophils % (A) 36 %; RBC 3.22 m/uL (4.30-5.90); RDW 17.7 % (11.5-15.5); WBC 2.4 k/uL (3.8-10.6)
[2019-05-23 07:35] LABS: Platelet Count 73 k/uL (150-450)
[2019-05-23] MEDS: INSULIN ASPART (NovoLOG) 100 UNIT/ML VIAL SQ SCH ×2 (09:03→12:00)
[2019-05-23] MEDS: METOPROLOL TARTRATE 50 MG TAB PO SCH (09:06)
[2019-05-23] MEDS: ASPIRIN 325 MG TAB PO SCH (09:06)
[2019-05-23] MEDS: cloNIDine HCL 0.1 MG TAB PO SCH (09:06)
[2019-05-23] MEDS: MAGNESIUM OXIDE 400 MG TAB PO SCH (09:07)
[2019-05-23] MEDS: PANTOPRAZOLE 40 MG/10 ML VIAL IVP SCH (09:07)
[2019-05-23] MEDS: MULTIVITAMINS, THERA 1 EACH TAB PO SCH (09:07)
[2019-05-23 09:15] VITALS: TEMP 97.8
[2019-05-23] MEDS ORDERED: Potassium Replacement Protocol 1 EACH MISC MISCELLANE PRN (10:22)
[2019-05-23] MEDS ORDERED: Magnesium Replacement Protocol 1 EACH MISC MISCELLANE PRN (10:23)
[2019-05-23] MEDS: FOLIC ACID 1 MG TAB PO SCH (11:51)
[2019-05-23] MEDS: MAGNESIUM SULFATE-D5W PMX 1 GM in DEXTROSE/WATER 1 100ML.BAG IVPB SCH ×2 (11:51→13:21)
[2019-05-23] MEDS: POTASSIUM CHLORIDE ER 20 MEQ TAB.ER PO SCH ×2 (11:52→13:21)
[2019-05-23 11:57] VITALS: BP 103/64; PULSE 68; RESP 16
[2019-05-23 11:59] LABS: Glucose,Whole Blood 77 mg/dL (75-99)
--- NOTE | 2019-05-23 15:47 | P.DS ---
Providers Date of admission: 05/21/19 20:07 Expected date of discharge: 05/23/19 Attending physician: Alexys Marcus MD Primary care physician: Yoon Phillips Hospital Course: Final Diagnoses: (1) Anemia of chronic disease Status: Acute (2) Alcoholism Status: Acute (3) GERD (gastroesophageal reflux disease) Status: Acute (4) Alcohol dependence with withdrawal Status: Acute (5) Abdominal pain Status: Acute Hospital Course: This is a 64-year-old gentleman with past medical history of alcoholism, GI bleed, frequent hospitalizations for the same present with complaints of chest pain, nausea, vomiting, abdominal pain. EKG reported sinus rhythm, troponins negative. Maintained on CIWA protocol. Abdominal pain controlled with PPI, Carafate. Denies chest pain, palpitations or shortness of breath. Denies lightheadedness, dizziness or focal deficits. [facility] arranged as per social work for the . Symptoms improved. Patient is being discharged home in a stable condition with guarded prognosis. Follow-up with PCP, substance abuse appointment on the at [facility] and alcohol cessation. Discharge exam: Gen: well developed, thin, NAD. Vitals reviewed CV: RRR, no murmur Lungs: clear throughout Abd: soft, distended, nontender Skin: warm and dry The impression and plan of care has been dictated as directed. : I performed a history and examination of this patient, discussed the same with the dictator. I agree with the dictator's note ,documented as a scribe. Any additional findings or plans will be noted. Patient Condition at Discharge: Stable Plan - Discharge Summary Discharge Rx Participant: Yes New Discharge Prescriptions: Continue Ferrous Sulfate [Iron (65 MG Elemental)] 325 mg PO DAILY metFORMIN HCL [Glucophage] 500 mg PO BID Magnesium Oxide [Mag-Ox] 400 mg PO DAILY #20 tablet Pantoprazole Sodium [Protonix] 40 mg PO BID #60 tablet. Multivitaminjonna Thera [Multivitamin (formulary)] 1 tab PO DAILY Folic Acid 1 mg PO AC-LUNCH #30 tab Budesonide-Formot 160-4.5 Mcg [Symbicort 160-4.5 Mcg Inhaler] 2 puff INHALATION RT-BID #1 inh Thiamine Mononitrate (Vit B1) [Vitamin B-1] 100 mg PO DAILY@1200 Amitriptyline HCl [Elavil] 25 mg PO HS Metoprolol Tartrate [Lopressor] 50 mg PO BID tab Tamsulosin [Flomax] 0.8 mg PO PC-SUPPER #30 cap.er.24h Acetaminophen Tab [Tylenol] 500 mg PO Q6HR PRN PRN Reason: Pain cloNIDine HCL [Catapres] 0.1 mg PO BID #60 tab Discharge Medication List Ferrous Sulfate [Iron (65 MG Elemental)] 325 mg PO DAILY 04/24/18 [History] metFORMIN HCL [Glucophage] 500 mg PO BID 10/19/18 [History] Magnesium Oxide [Mag-Ox] 400 mg PO DAILY #20 tablet 11/01/18 [Rx] Pantoprazole Sodium [Protonix] 40 mg PO BID #60 tablet.dr 11/04/18 [Rx] Multivitamins, Thera [Multivitamin (formulary)] 1 tab PO DAILY 12/12/18 [History] Budesonide-Formot 160-4.5 Mcg [Symbicort 160-4.5 Mcg Inhaler] 2 puff INHALATION RT-BID #1 inh 12/15/18 [Rx] Folic Acid 1 mg PO AC-LUNCH #30 tab 12/15/18 [Rx] Thiamine Mononitrate (Vit B1) [Vitamin B-1] 100 mg PO DAILY@1200 12/29/18 [History] Amitriptyline HCl [Elavil] 25 mg PO HS 04/13/19 [History] Metoprolol Tartrate [Lopressor] 50 mg PO BID tab 04/18/19 [Rx] Tamsulosin [Flomax] 0.8 mg PO PC-SUPPER #30 cap.er.24h 04/27/19 [Rx] Acetaminophen Tab [Tylenol] 500 mg PO Q6HR PRN 05/10/19 [History] cloNIDine HCL [Catapres] 0.1 mg PO BID #60 tab 05/15/19 [Rx] Follow up Appointment(s)/Referral(s): Yoon Phillips DO [Primary Care Provider] - 05/26/19 12:45 pm (Wednesday at the [place] office) Patient Instructions/Handouts: Chest Pain (ED), Abuse of Alcohol (DC) Activity/Diet/Wound Care/Special Instructions: Patient has follow up appointment for substance abuse at [facility] on 05/29/19 at 9:30AM.
--- NOTE | 2019-05-26 07:52 | CDI ---
Documentation Clarification Form Date: 05/26/19 From: Jen Shipman Phone: If you have a question about this query, please contact Elaine Corey, Medical Instructor at [phone] between 8am and 5pm. Admit Date: 05/21/19 Discharge Date: 05/23/19 Patient Name: Anders Aguilar Visit Number: [id number] ATTENTION: The Clinical Documentation Specialists (CDI) and [facility] Coding Staff appreciate your assistance in clarifying documentation. Please respond to the clarification below the line at the bottom and electronically sign. The CDI & [facility] Coding staff will review the response and follow-up if needed. Please note: Queries are made part of the Legal Health Record. If you have any questions, please contact the author of this message via ITS. Dear Dr. Marcus The patient is slightly confused was documented in the H&P. History/Risk Factors: Alcohol intoxication and withdrawal, ketosis Clinical Indicators: confusion Labs: Urine ketones 1+, HCO3 26, BUN 5, lactic acid 5.8, potassium 3.3, magnesium 1.3 X Ray: Chest: Mild increased lung markings within the left lung may be artifact due to rotation. Small nodule in the periphery left lung is not excluded. Treatment: 1 liter fluid bolus then at 150 mls/hr, IV magnesium, PO potassium In your professional opinion, please clarify the etiology of the Altered Mental Status, if known. Delirium (specify cause): Encephalopathy (specify Type and Underlying Medical Illness) Other condition (please specify) Unable to determine Delirium due to alcohol intoxication MTDD
== END 2019-05-23 16:29 | disposition home or self-care (01) | DRG 897 ==
LOC: EC 16:15 → 3SCARD 20:07
PROVIDERS: ADMIT Family Medicine; ATTEND Family Medicine
DX: F10.231 Alcohol dependence with withdrawal delirium (principal); E87.2 Acidosis; D68.4 Acquired coagulation factor deficiency; E44.0 Moderate protein-calorie malnutrition; K76.6 Portal hypertension; R07.9 Chest pain, unspecified; F10.221 Alcohol dependence with intoxication delirium; D69.6 Thrombocytopenia, unspecified; D63.8 Anemia in other chronic diseases classified elsewhere; R10.9 Unspecified abdominal pain; Z71.41 Alcohol abuse counseling and surveillance of alcoholic; D50.9 Iron deficiency anemia, unspecified; E11.9 Type 2 diabetes mellitus without complications; E78.5 Hyperlipidemia, unspecified; E83.42 Hypomagnesemia; E87.6 Hypokalemia; F32.9 Major depressive disorder, single episode, unspecified; F41.9 Anxiety disorder, unspecified; G89.29 Other chronic pain; H91.90 Unspecified hearing loss, unspecified ear; I10 Essential (primary) hypertension; I48.91 Unspecified atrial fibrillation; J44.9 Chronic obstructive pulmonary disease, unspecified; K21.9 Gastro-esophageal reflux disease without esophagitis; M41.9 Scoliosis, unspecified; N42.9 Disorder of prostate, unspecified; M50.30 Other cervical disc degeneration, unspecified cervical region; M47.9 Spondylosis, unspecified; M54.41 Lumbago with sciatica, right side; R11.10 Vomiting, unspecified; H93.19 Tinnitus, unspecified ear; K57.90 Diverticulosis of intestine, part unspecified, without perforation or abscess without bleeding; K70.30 Alcoholic cirrhosis of liver without ascites; R60.9 Edema, unspecified; Z79.84 Long term (current) use of oral hypoglycemic drugs; Z79.899 Other long term (current) drug therapy; Z79.51 Long term (current) use of inhaled steroids; Z90.49 Acquired absence of other specified parts of digestive tract; Z86.73 Personal history of transient ischemic attack (TIA), and cerebral infarction without residual deficits; Z86.711 Personal history of pulmonary embolism; Z86.14 Personal history of Methicillin resistant Staphylococcus aureus infection; Z87.01 Personal history of pneumonia (recurrent); Z91.012 Allergy to eggs; Z91.040 Latex allergy status; Z88.8 Allergy status to other drugs, medicaments and biological substances; Z91.018 Allergy to other foods; Z82.3 Family history of stroke; Z82.5 Family history of asthma and other chronic lower respiratory diseases
CPT/HCPCS: 36415; 71046; 80053; 80061; 80320; 81001; 82009; 82140; 82550; 83605; 83690; 83735; 84100; 84132; 84443; 84484; 85025; 85610; 85730; 93005; 96361; 96372; 96374; 96375; 99285

== ENCOUNTER 2019-05-29 10:43 | Inpatient (IN) | payer OTHER ==
[2019-05-29] MEDS ORDERED: SODIUM CHLORIDE 0.9% 1,000 ML IV STA (11:16)
[2019-05-29] MEDS ORDERED: SODIUM CHLORIDE 0.9% 500 ML 500 ML IV STA (11:17)
[2019-05-29] MEDS ORDERED: MAG HYDROX/AL HYDROX/SIMETH 30 ML, HYOSCYAMINE ELIXIR 10 ML, LIDOCAINE VISCOUS 2% 10 ML PO STA ×3 (11:20)
--- NOTE | 2019-05-29 11:20 | ED ---
General Adult HPI - General Chief complaint: ENT Stated complaint: Sore throat Time Seen by Provider: 05/29/19 10:49 Source: patient, EMS, RN notes reviewed Mode of arrival: EMS Limitations: no limitations - History of Present Illness Initial comments: Patient is a pleasant 64-year-old male presenting to the emergency Department with complaints of burning in his throat. Onset of symptoms was today. Patient states he did feel like his throat was a little bit swollen and he did have some shortness of breath associated with the swelling of the throat however that has resolved. Patient has just had some burning in his throat since that time. Patient states he did have similar symptoms once previously and he feels may have been an ALLERGIC reaction. Patient denies any dyspnea at this time. Patient has had some mild left lateral chest discomfort. No nausea or diaphoresis. Patient last drink alcohol, one point yesterday, none since that time. Patient is question about his elevated heart rate and states he believes that is normal for him. Patient is also agreeable that it could be related to not having alcohol today. - Related Data Home Medications Medication Instructions Recorded Confirmed Ferrous Sulfate [Iron (65 MG 325 mg PO DAILY 04/24/18 05/21/19 Elemental)] metFORMIN HCL [Glucophage] 500 mg PO BID 10/19/18 05/21/19 Multivitamins, Thera [Multivitamin 1 tab PO DAILY 12/12/18 05/21/19 (formulary)] Thiamine Mononitrate (Vit B1) 100 mg PO DAILY@1200 12/29/18 05/21/19 [Vitamin B-1] Amitriptyline HCl [Elavil] 25 mg PO HS 04/13/19 05/21/19 Acetaminophen Tab [Tylenol] 500 mg PO Q6HR PRN 05/10/19 05/21/19 Previous Rx's Medication Instructions Recorded Magnesium Oxide [Mag-Ox] 400 mg PO DAILY #20 tablet 11/01/18 Pantoprazole Sodium [Protonix] 40 mg PO BID #60 tablet. 11/04/18 Budesonide-Formot 160-4.5 Mcg 2 puff INHALATION RT-BID #1 inh 12/15/18 [Symbicort 160-4.5 Mcg Inhaler] Folic Acid 1 mg PO AC-LUNCH #30 tab 12/15/18 Metoprolol Tartrate [Lopressor] 50 mg PO BID tab 04/18/19 Tamsulosin [Flomax] 0.8 mg PO PC-SUPPER #30 cap.er.24h 04/27/19 cloNIDine HCL [Catapres] 0.1 mg PO BID #60 tab 05/15/19 Sucralfate [Carafate] 1 gm PO AC-TID #30 tablet 05/23/19 Allergies Allergy/AdvReac Type Severity Reaction Status Date / Time adhesive tape Allergy Rash/Hives Verified 05/29/19 10:46 latex Allergy Unknown Verified 05/29/19 10:46 egg AdvReac Nausea & Verified 05/29/19 10:46 Vomiting lisinopril AdvReac EYES Verified 05/29/19 10:46 BURN&ITCH/WEAKNESS tomato AdvReac Nausea & Verified 05/29/19 10:46 Vomiting & Diarrhea Review of Systems ROS Statement: Those systems with pertinent positive or pertinent negative responses have been documented in the HPI. ROS Other: All systems not noted in ROS Statement are negative. Constitutional: Denies: fever Eyes: Denies: eye pain ENT: Reports: throat pain Respiratory: Reports: as per HPI. Denies: cough Cardiovascular: Reports: as per HPI Endocrine: Denies: fatigue Gastrointestinal: Denies: abdominal pain, nausea, vomiting Genitourinary: Denies: dysuria Musculoskeletal: Denies: back pain Skin: Denies: rash Neurological: Denies: weakness Past Medical History Past Medical History: Atrial Fibrillation, Chest Pain / Angina, COPD, CVA/TIA, Diabetes Mellitus, GERD/Reflux, GI Bleed, Hearing Disorder / Deafness, Hyperlipidemia, Hypertension, Liver Disease, Pneumonia, Prostate Disorder, Pulmonary Embolus (PE) Additional Past Medical History / Comment(s): Pt recently admitted to [facility] on 04/14/19 with GI bleed and had esophageal varicies banded. Other hx: Alcoholism, alcohol withdrawal DTs and possibly a seizure in 2018 r/t withdrawal, chronic alcoholic cirrhosis with portal hypertension and previous history of upper and lower GI bleeding, esophageal varices, previous history of childhood seizure which he outgrew not taking any antiepileptic medication, pulmonary embolism x 2 R lung, TIA, diverticulosis, chronic lower bilateral extremity ankle edema if he walks alot, previous history of septicemia, cervical disc disease, chronic neck pain, chronic back pain with r sided sciatica, degenerative arthritis involving the lower back, scoliosis, tinnitus, vitamin D deficiency, iron anemia, chronic thrombocytopenia, denies MRSA, C-DIFF -2018, scoliosis, scoliosis History of Any Multi-Drug Resistant Organisms: MRSA Date of last positivie culture/infection: 03/17/18 MDRO Source:: stomach Past Surgical History: Appendectomy, Cholecystectomy Additional Past Surgical History / Comment(s): EGDs/esophageal varicies bandings, colonoscopies. Past Anesthesia/Blood Transfusion Reactions: No Reported Reaction Additional Past Anesthesia/Blood Transfusion Reaction / Comment(s): after appendix removed sob Past Psychological History: Anxiety, Depression Smoking Status: Never smoker Past Alcohol Use History: Abuse, Daily, Heavy Past Drug Use History: None Reported - Past Family History Mother Family Medical History: COPD, CVA/TIA, Dementia Additional Family Medical History / Comment(s): from a stroke Father Family Medical History: Pneumonia Additional Family Medical History / Comment(s): Father of pneumonia when he was close to 80 yrs old. General Exam Limitations: no limitations General appearance: alert, in no apparent distress Head exam: Present: normocephalic Eye exam: Present: normal appearance, PERRL ENT exam: Present: normal oropharynx Neck exam: Present: normal inspection. Absent: tenderness, meningismus Respiratory exam: Present: normal lung sounds bilaterally Cardiovascular Exam: Present: tachycardia Expanded Peripheral pulses: 2+: Radial (R), Radial (L), Posterior Tibialis (R), Posterior Tibialis (L), Dorsalis Pedis (R), Dorsalis Pedis (L) GI/Abdominal exam: Present: soft. Absent: tenderness Extremities exam: Present: normal inspection Back exam: Present: normal inspection Neurological exam: Present: alert Psychiatric exam: Present: normal affect, normal mood Skin exam: Present: normal color Course Vital Signs 05/29/19 05/29/19 10:46 13:12 Temperature 97.7 F Pulse Rate 135 H 135 H Respiratory 20 20 Rate Blood Pressure 149/96 124/98 O2 Sat by Pulse 98 99 Oximetry EKG Findings - EKG Comments: EKG Findings:: Sinus tachycardia 135. NJ 120. QRS 72. QT 360. QTC 552. Normal axis. Normal QRS. No acute ST change. Medical Decision Making - Medical Decision Making Patient reevaluated and states he is starting to have problems with his throat again. Patient states symptoms had improved earlier. Patient updated on results and plan. Case was discussed in detail with Dr. Nicholas, who will admit covering for Dr. Phillips. - Lab Data Result diagrams: 05/29/19 10:58 05/29/19 10:58 Lab Results 05/29/19 05/29/19 05/29/19 Range/Units 10:58 10:58 10:58 WBC 3.5 L (3.8-10.6) k/uL RBC 3.96 L (4.30-5.90) m/uL Hgb 9.8 L D (13.0-17.5) gm/dL Hct 31.4 L (39.0-53.0) % MCV 79.2 L (80.0-100.0) fL MCH 24.8 L (25.0-35.0) pg MCHC 31.3 (31.0-37.0) g/dL RDW 18.2 H (11.5-15.5) % Plt Count 112 L D (150-450) k/uL Neutrophils % 57 % Lymphocytes % 31 % Monocytes % 8 % Eosinophils % 1 % Basophils % 1 % Neutrophils # 2.0 (1.3-7.7) k/uL Lymphocytes # 1.1 (1.0-4.8) k/uL Monocytes # 0.3 (0-1.0) k/uL Eosinophils # 0.0 (0-0.7) k/uL Basophils # 0.0 (0-0.2) k/uL Hypochromasia Marked Poikilocytosis Slight Anisocytosis Slight Microcytosis Slight PT 12.8 H (9.0-12.0) sec INR 1.2 H (<1.2) APTT 25.9 (22.0-30.0) sec D-Dimer 2.29 H (<0.60) mg/L FEU Sodium 140 (137-145) mmol/L Potassium 3.0 L (3.5-5.1) mmol/L Chloride 100 (98-107) mmol/L Carbon Dioxide 28 (22-30) mmol/L Anion Gap 12 mmol/L BUN 8 L (9-20) mg/dL Creatinine 0.67 (0.66-1.25) mg/dL Est GFR (CKD-EPI)AfAm >90 (>60 ml/min/1.73 sqM) Est GFR (CKD-EPI)NonAf >90 (>60 ml/min/1.73 sqM) Glucose 130 H (74-99) mg/dL Calcium 8.4 (8.4-10.2) mg/dL Magnesium 1.4 L (1.6-2.3) mg/dL Total Bilirubin 1.0 (0.2-1.3) mg/dL AST 70 H (17-59) U/L ALT 23 (4-49) U/L Alkaline Phosphatase 188 H (38-126) U/L Troponin I (0.000-0.034) ng/mL Total Protein 7.6 (6.3-8.2) g/dL Albumin 3.5 (3.5-5.0) g/dL Amylase 89 (30-110) U/L Lipase 100 (23-300) U/L Serum Alcohol 112 mg/dL 05/29/19 Range/Units 10:58 WBC (3.8-10.6) k/uL RBC (4.30-5.90) m/uL Hgb (13.0-17.5) gm/dL Hct (39.0-53.0) % MCV (80.0-100.0) fL MCH (25.0-35.0) pg MCHC (31.0-37.0) g/dL RDW (11.5-15.5) % Plt Count (150-450) k/uL Neutrophils % % Lymphocytes % % Monocytes % % Eosinophils % % Basophils % % Neutrophils # (1.3-7.7) k/uL Lymphocytes # (1.0-4.8) k/uL Monocytes # (0-1.0) k/uL Eosinophils # (0-0.7) k/uL Basophils # (0-0.2) k/uL Hypochromasia Poikilocytosis Anisocytosis Microcytosis PT (9.0-12.0) sec INR (<1.2) APTT (22.0-30.0) sec D-Dimer (<0.60) mg/L FEU Sodium (137-145) mmol/L Potassium (3.5-5.1) mmol/L Chloride (98-107) mmol/L Carbon Dioxide (22-30) mmol/L Anion Gap mmol/L BUN (9-20) mg/dL Creatinine (0.66-1.25) mg/dL Est GFR (CKD-EPI)AfAm (>60 ml/min/1.73 sqM) Est GFR (CKD-EPI)NonAf (>60 ml/min/1.73 sqM) Glucose (74-99) mg/dL Calcium (8.4-10.2) mg/dL Magnesium (1.6-2.3) mg/dL Total Bilirubin (0.2-1.3) mg/dL AST (17-59) U/L ALT (4-49) U/L Alkaline Phosphatase (38-126) U/L Troponin I <0.012 (0.000-0.034) ng/mL Total Protein (6.3-8.2) g/dL Albumin (3.5-5.0) g/dL Amylase (30-110) U/L Lipase (23-300) U/L Serum Alcohol mg/dL - Radiology Data Radiology results: report reviewed (CT angios of the chest is suboptimal without evidence of pulmonary embolism. Prominent esophagus with air fluid level.), image reviewed (Chest x-ray shows chronic changes without acute process.) Disposition Clinical Impression: Sinus tachycardia, Esophageal dilatation, Chest pain Disposition: ADMITTED IP TO THIS HOSP Is patient prescribed a controlled substance at d/c from ED?: No Referrals: Yoon Phillips DO [Primary Care Provider] - 1-2 days Decision Time: 13:52
[2019-05-29 11:39] LABS: Anisocytosis Slight; Basophils % (A) 1 %; Eosinophils % (A) 1 %; HCT 31.4 % (39.0-53.0); Hypochromasia Marked; Lymphocytes # (A) 1.1 k/uL (1.0-4.8); Lymphocytes % (A) 31 %; MCH 24.8 pg (25.0-35.0); MCHC 31.3 g/dL (31.0-37.0); Mean Platelet Volume 8.7; Microcytosis Slight; Monocytes # (A) 0.3 k/uL (0-1.0); Monocytes % (A) 8 %; Neutrophils % (A) 57 %; Platelet Count 112 k/uL (150-450); Poikilocytosis Slight; RBC 3.96 m/uL (4.30-5.90); RDW 18.2 % (11.5-15.5); WBC 3.5 k/uL (3.8-10.6)
[2019-05-29 11:41] LABS: HGB 9.8 gm/dL (13.0-17.5)
[2019-05-29 11:42] LABS: MCV 79.2 fL (80.0-100.0)
[2019-05-29 11:48] LABS: ALT 23 U/L (4-49); AST 70 U/L (17-59); African American GFR (CKD) >90 (>60 ml/min/1.73 sqM); Albumin 3.5 g/dL (3.5-5.0); Alkaline Phosphatase 188 U/L (38-126); Amylase 89 U/L (30-110); Anion Gap 12 mmol/L; Blood Urea Nitrogen 8 mg/dL (9-20); Calcium 8.4 mg/dL (8.4-10.2); Carbon Dioxide 28 mmol/L (22-30); Chloride 100 mmol/L (98-107); Glucose 130 mg/dL (74-99); Magnesium 1.4 mg/dL (1.6-2.3); Non-African American GFR(CKD) >90 (>60 ml/min/1.73 sqM); Sodium 140 mmol/L (137-145); Total Protein 7.6 g/dL (6.3-8.2)
[2019-05-29 11:52] LABS: INR 1.2 (<1.2); Partial Thromboplastin Time 25.9 sec (22.0-30.0); Prothrombin Time 12.8 sec (9.0-12.0)
--- NOTE | 2019-05-29 11:55 | XR ---
EXAMINATION TYPE: XR chest 2V DATE OF EXAM: 05/29/2019 COMPARISON: Chest x-ray 8 days ago. HISTORY: Chest pain and dysphasia from coughing. TECHNIQUE: Frontal and lateral views of the chest are obtained. FINDINGS: There is chronic parenchymal change bilaterally redemonstrated without suspicious new foca l air space opacity, pleural effusion, or pneumothorax seen. The cardiac silhouette size remains wit hin normal limits with atherosclerotic change in aortic knob. Underlying scoliosis redemonstrated. Ol d nonunion fracture deformity left proximal humerus redemonstrated. Cholecystectomy clips again seen. IMPRESSION: Chronic changes without new acute pulmonary process.
[2019-05-29 12:04] LABS: Alcohol 112 mg/dL
[2019-05-29 12:08] LABS: D-Dimer 2.29 mg/L FEU (<0.60)
--- NOTE | 2019-05-29 13:11 | CT ---
EXAMINATION TYPE: CT angio chest DATE OF EXAM: 05/29/2019 COMPARISON: Chest CT December 29, 2018 and older CTs HISTORY: Nauseated, trouble catching breath, productive cough. CT DLP: 324.7 mGycm. Automated Exposure Control for Dose Reduction was Utilized. CONTRAST: CTA scan of the thorax is performed with IV Contrast, patient injected with 100 mL of Isovue 370, pul monary embolism protocol. MIP Images are created on CT scanner and reviewed. FINDINGS: Exam is suboptimal as it is respiratory motion artifact degradation particularly in the low er lungs limiting evaluation for small nodules. LUNGS: There is left-sided volume loss with some increased left-sided parenchymal scarring in the per iphery of the mid to lower lung versus the opposite right side. No pleural effusion or pneumothorax i s evident bilaterally. No concerning nodules or masses. Elevated left hemidiaphragm redemonstrated. MEDIASTINUM: There is suboptimal study with near equal contrast for a left heart systems but there is no CT evidence for pulmonary embolism. There are no new greater than 1 cm noncalcified hilar or med iastinal lymph nodes. Calcified subcarinal lymph nodes again seen. There is dilated mid to distal eso phagus with fluid and air-fluid level. Stomach is poorly distended. No cardiomegaly or pericardial e ffusion is seen. OTHER: Hepatomegaly with fatty infiltration redemonstrated. Cholecystectomy clips are redemonstrated. Lobulated peripheral margin again seen. Diverticula visualized portion of the upper colon. Heterogen eous spleen with calcification and 10 mm hyperdense focus maximum is 132 unchanged from March 22 018 study presumed benign. Multilevel spurring in the spine. Exaggerated thoracic kyphosis redemonstr ated IMPRESSION: 1. Suboptimal study without CT evidence for acute pulmonary embolism. 2. Chronic changes including left-sided volume loss without new acute pulmonary process clearly seen. 3. Persistent prominent or dilated esophagus with air-fluid level is poorly distended stomach, correl ate for achalasia and/or underlying esophageal dysmotility. This is not Significant change from prior studies. 4. Hepatomegaly and low dense lesion with lobulated peripheral margin correlate for fatty infiltratio n and/or underlying cirrhosis, not significantly changed from prior studies.
[2019-05-29] MEDS ORDERED: POTASSIUM CHLORIDE ER 20 MEQ TAB.ER PO STA (13:17)
[2019-05-29] MEDS ORDERED: MAGNESIUM OXIDE 400 MG TAB PO STA (13:17)
[2019-05-29] MEDS ORDERED: NALOXONE 0.4 MG/ML 1 ML VIAL IV PRN (13:52)
[2019-05-29] MEDS ORDERED: THIAMINE 100 MG/ML 2 ML VIAL IM STA (13:58)
[2019-05-29] MEDS ORDERED: LORazepam 2 MG/ML INJ IV PRN ×3 (13:58)
[2019-05-29] MEDS: MULTIVITAMINS, THERA 1 EACH TAB PO SCH (14:21)
[2019-05-29] MEDS: SODIUM CHLORIDE 0.9% 1,000 ML IV SCH (14:22)
[2019-05-29] MEDS: THIAMINE 100 MG TAB PO SCH (17:50)
--- NOTE | 2019-05-29 18:25 | NM ---
EXAMINATION TYPE: NM pul vent and perfuse DATE OF EXAM: 05/29/2019 COMPARISON: NONE HISTORY: Chest pain TECHNIQUE: Utilizing inhalation of 69.6 mCi Tc 99m DTPA aerosol and intravenous injection of 5.2 mCi of Tc 99m MAA, ventilation and perfusion images are acquired post injection in multiple projections. FINDINGS: There is fairly uniform normal ventilation images in both lungs. Perfusion images are within normal limits. IMPRESSION: Normal exam. There is a very low probability of pulmonary embolism.
[2019-05-29] MEDS: PANTOPRAZOLE 40 MG/10 ML VIAL IVP SCH (20:11)
[2019-05-29] MEDS: POTASSIUM CHLORIDE ER 20 MEQ TAB.ER PO SCH (20:12)
[2019-05-29] MEDS: SUCRALFATE 1 GM TAB PO SCH (20:12)
[2019-05-29] MEDS: METOCLOPRAMIDE 5 MG/ML 2 ML VIAL IVP PRN (20:12)
[2019-05-30] MEDS: METOCLOPRAMIDE 5 MG/ML 2 ML VIAL IVP PRN ×2 (01:27→12:49)
[2019-05-30] MEDS ORDERED: SUCRALFATE 1 GM TAB PO SCH (07:30)
[2019-05-30 08:25] LABS: ALT 20 U/L (4-49); AST 56 U/L (17-59); African American GFR (CKD) >90 (>60 ml/min/1.73 sqM); Albumin 3.1 g/dL (3.5-5.0); Alkaline Phosphatase 175 U/L (38-126); Anion Gap 6 mmol/L; Blood Urea Nitrogen 8 mg/dL (9-20); Calcium 8.5 mg/dL (8.4-10.2); Carbon Dioxide 30 mmol/L (22-30); Chloride 102 mmol/L (98-107); Glucose 108 mg/dL (74-99); Non-African American GFR(CKD) >90 (>60 ml/min/1.73 sqM); Potassium 3.3 mmol/L (3.5-5.1); Sodium 138 mmol/L (137-145); Total Bilirubin 1.7 mg/dL (0.2-1.3); Total Protein 6.8 g/dL (6.3-8.2)
[2019-05-30] MEDS: POTASSIUM CHLORIDE ER 20 MEQ TAB.ER PO SCH ×2 (08:28→20:15)
[2019-05-30] MEDS: PANTOPRAZOLE 40 MG/10 ML VIAL IVP SCH ×2 (08:28→20:16)
[2019-05-30] MEDS: THIAMINE 100 MG TAB PO SCH ×2 (08:28→17:47)
[2019-05-30] MEDS: MULTIVITAMINS, THERA 1 EACH TAB PO SCH (08:29)
[2019-05-30] MEDS: SUCRALFATE 1 GM TAB PO SCH ×4 (08:29→20:15)
[2019-05-30 08:32] LABS: Anisocytosis Slight; Basophils % (A) 1 %; Eosinophils # (A) 0.1 k/uL (0-0.7); Eosinophils % (A) 1 %; HCT 27.4 % (39.0-53.0); HGB 8.5 gm/dL (13.0-17.5); Hypochromasia Marked; Lymphocytes # (A) 1.3 k/uL (1.0-4.8); Lymphocytes % (A) 32 %; MCH 24.9 pg (25.0-35.0); MCHC 31.2 g/dL (31.0-37.0); MCV 79.7 fL (80.0-100.0); Mean Platelet Volume 9.1; Microcytosis Slight; Monocytes # (A) 0.4 k/uL (0-1.0); Monocytes % (A) 10 %; Neutrophils # (A) 2.2 k/uL (1.3-7.7); Neutrophils % (A) 54 %; Poikilocytosis Slight; RBC 3.43 m/uL (4.30-5.90); RDW 18.4 % (11.5-15.5)
--- NOTE | 2019-05-30 08:40 | P.HPIM ---
History of Present Illness H&P Date: 05/30/19 Chief Complaint: abd pain Anders Aguilar is a 64-year-old male with past medical history of alcoholism, GI bleed, frequent hospitalizations for the same, discharged 1 week ago who presented to the emergency department complaining of abdominal pain, nausea, vomiting. Last drink yesterday. He states since leaving the hospital he was not able to go to rehab and continued to drink a fifth of whiskey per day. He continues to minimize and downplay his drinking and states he continues to drink because his nephews were partying at the house and are bad influences. He denie s hematemesis, melena, hematochezia. On presentation, he was tachycardic to 130s, hemoglobin 9.8, elevated LFTs, renal function at baseline. D-dimer was indeterminate, CTA chest showed no PE but did demonstrate esophageal dilation and air fluid levels. Serum alcohol 112. Review of Systems All systems: negative Constitutional: Reports fatigue, Reports malaise, Reports weakness, Denies chills, Denies fever Eyes: denies blurred vision, denies pain Ears, nose, mouth and throat: Denies headache, Denies sore throat Cardiovascular: Denies chest pain, Denies shortness of breath Respiratory: Denies cough Gastrointestinal: Reports as per HPI, Reports abdominal pain, Reports heartburn, Reports indigestion, Denies diarrhea, Denies nausea, Denies vomiting Musculoskeletal: Denies myalgias Integumentary: Denies pruritus, Denies rash Neurological: Denies numbness, Denies weakness Psychiatric: Denies anxiety, Denies depression Endocrine: Denies fatigue, Denies weight change Past Medical History Past Medical History: Atrial Fibrillation, Chest Pain / Angina, COPD, CVA/TIA, Diabetes Mellitus, GERD/Reflux, GI Bleed, Hearing Disorder / Deafness, Hyperlipidemia, Hypertension, Liver Disease, Pneumonia, Prostate Disorder, Pulmonary Embolus (PE) Additional Past Medical History / Comment(s): GI bleed/ esophageal varicies b anded. Other hx: Alcoholism, alcohol withdrawal DTs and possibly a seizure in 2018 r/t withdrawal, chronic alcoholic cirrhosis with portal hypertension and previous history of upper and lower GI bleeding, esophageal varices, previous history of childhood seizure which he outgrew not taking any antiepileptic medication, pulmonary embolism x 2 R lung, TIA, diverticulosis, chronic lower bilateral extremity ankle edema if he walks a lot, previous history of septicemia, cervical disc disease, chronic neck pain, chronic back pain with r sided sciatica, degenerative arthritis involving the lower back, scoliosis, tinnitus, vitamin D deficiency, iron anemia, chronic thrombocytopenia, denies MRSA, C-DIFF History of Any Multi-Drug Resistant Organisms: MRSA Date of last positivie culture/infection: 03/17/18 MDRO Source:: stomach Past Surgical History: Appendectomy, Cholecystectomy Additional Past Surgical History / Comment(s): EGDs/esophageal varicies bandings, colonoscopies. Past Anesthesia/Blood Transfusion Reactions: No Reported Reaction Additional Past Anesthesia/Blood Transfusion Reaction / Comment(s): after appendix removed sob Past Psychological History: Anxiety, Depression Additional Psychological History / Comment(s): PATIENT LIVES IN APARTMENT ALONE WITH HIS DOG, STATES USES A CANE. He gets to [facility] by [employer] and his sister. He has a nebulizer and a glucometer. Used to work in [employer]. His left him many years ago he has adult children that he does not see very often. No experience Smoking Status: Never smoker Past Alcohol Use History: Abuse, Daily, Heavy Additional Past Alcohol Use History / Comment(s): Pt states he drinks 2 pints of liquor every day and last drank 1/ Past Drug Use History: None Reported - Past Family History Mother Family Medical History: COPD, CVA/TIA, Dementia Additional Family Medical History / Comment(s): from a stroke Father Family Medical History: Pneumonia Additional Family Medical History / Comment(s): Father of pneumonia when he was close to 80 yrs old. Medications and Allergies Home Medications Medication Instructions Recorded Confirmed Type Ferrous Sulfate [Iron (65 MG 325 mg PO DAILY 04/24/18 05/29/19 History Elemental)] metFORMIN HCL [Glucophage] 500 mg PO BID 10/19/18 05/29/19 History Magnesium Oxide [Mag-Ox] 400 mg PO DAILY #20 tablet 11/01/18 05/29/19 Rx Pantoprazole Sodium [Protonix] 40 mg PO BID #60 tablet. 11/04/18 05/29/19 Rx Multivitamins, Thera [Multivitamin 1 tab PO DAILY 12/12/18 05/29/19 History (formulary)] Budesonide-Formot 160-4.5 Mcg 2 puff INHALATION RT-BID #1 inh 12/15/18 05/29/19 Rx [Symbicort 160-4.5 Mcg Inhaler] Folic Acid 1 mg PO AC-LUNCH #30 tab 12/15/18 05/29/19 Rx Thiamine Mononitrate (Vit B1) 100 mg PO DAILY@1200 12/29/18 05/29/19 History [Vitamin B-1] Amitriptyline HCl [Elavil] 25 mg PO HS 04/13/19 05/29/19 History Metoprolol Tartrate [Lopressor] 50 mg PO BID tab 04/18/19 05/29/19 Rx Tamsulosin [Flomax] 0.8 mg PO PC-SUPPER #30 cap.er.24h 04/27/19 05/29/19 Rx Acetaminophen Tab [Tylenol] 500 mg PO Q6HR PRN 05/10/19 05/29/19 History cloNIDine HCL [Catapres] 0.1 mg PO BID #60 tab 05/15/19 05/29/19 Rx Sucralfate [Carafate] 1 gm PO AC-TID #30 tablet 05/23/19 05/29/19 Rx Allergies Allergy/AdvReac Type Severity Reaction Status Date / Time adhesive tape Allergy Rash/Hives Verified 05/29/19 13:52 latex Allergy Unknown Verified 05/29/19 13:52 egg AdvReac Nausea & Verified 05/29/19 13:52 Vomiting lisinopril AdvReac EYES Verified 05/29/19 13:52 BURN&ITCH/WEAKNESS tomato AdvReac Nausea & Verified 05/29/19 13:52 Vomiting & Diarrhea Physical Exam Vitals: Vital Signs Temp Pulse Pulse Resp BP BP Pulse Ox 05/30/19 05:49 98.5 F 113 H 18 137/78 97 05/30/19 00:00 128 H 18 05/29/19 21:10 98.3 F 128 H 18 148/73 99 05/29/19 19:24 138 H 18 131/89 97 05/29/19 17:52 98.7 F 131 H 24 142/92 99 05/29/19 13:12 135 H 20 124/98 99 05/29/19 10:46 97.7 F 135 H 20 149/96 98 Intake and Output 05/29/19 05/30/19 05/30/19 22:59 06:59 14:59 Intake Total 480 480 Balance 480 480 Intake: Oral 480 480 Other: # Voids 1 1 Weight 70.76 kg General: Thin white male in no acute distress. Vitals reviewed HEENT normocephalic, atraumatic, mucous membranes moist Neck: Supple, no thyromegaly, no JVD Lymph: No cervical or axillary lymphadenopathy CV: Regular rate and rhythm, no murmur. Pulses 2+ Lungs: Normal inspiratory effort, no wheezes rales or rhonchi Abdomen: Soft, epigastric tenderness, hepatomegaly Neuro: Alert and oriented 3, no focal deficits Skin: Warm and dry Results CBC & Chem 7: 05/29/19 10:58 05/30/19 07:31 Labs: Abnormal Lab Results - Last 24 Hours (Table) 05/29/19 05/29/19 05/29/19 Range/Units 10:58 10:58 10:58 WBC 3.5 L (3.8-10.6) k/uL RBC 3.96 L (4.30-5.90) m/uL Hgb 9.8 L D (13.0-17.5) gm/dL Hct 31.4 L (39.0-53.0) % MCV 79.2 L (80.0-100.0) fL MCH 24.8 L (25.0-35.0) pg RDW 18.2 H (11.5-15.5) % Plt Count 112 L D (150-450) k/uL PT 12.8 H (9.0-12.0) sec INR 1.2 H (<1.2) D-Dimer 2.29 H (<0.60) mg/L FEU Potassium 3.0 L (3.5-5.1) mmol/L BUN 8 L (9-20) mg/dL Glucose 130 H (74-99) mg/dL Magnesium 1.4 L (1.6-2.3) mg/dL Total Bilirubin (0.2-1.3) mg/dL AST 70 H (17-59) U/L Alkaline Phosphatase 188 H (38-126) U/L Albumin (3.5-5.0) g/dL 05/30/19 Range/Units 07:31 WBC (3.8-10.6) k/uL RBC (4.30-5.90) m/uL Hgb (13.0-17.5) gm/dL Hct (39.0-53.0) % MCV (80.0-100.0) fL MCH (25.0-35.0) pg RDW (11.5-15.5) % Plt Count (150-450) k/uL PT (9.0-12.0) sec INR (<1.2) D-Dimer (<0.60) mg/L FEU Potassium 3.3 L (3.5-5.1) mmol/L BUN 8 L (9-20) mg/dL Glucose 108 H (74-99) mg/dL Magnesium (1.6-2.3) mg/dL Total Bilirubin 1.7 H (0.2-1.3) mg/dL AST (17-59) U/L Alkaline Phosphatase 175 H (38-126) U/L Albumin 3.1 L (3.5-5.0) g/dL Thrombosis Risk Factor Assmnt - Choose All That Apply Any of the Below Risk Factors Present?: Yes Each Factor Represents 1 point: Abnormal pulmonary function (COPD), Obesity (BMI >25) Other Risk Factors: Yes Each Risk Factor Represents 2 Points: Age 61-74 years Each Risk Factor Represents 3 Points: History of DVT/PE Thrombosis Risk Factor Assessment Total Risk Factor Score: 7 Thrombosis Risk Factor Assessment Level: High Risk Assessment and Plan (1) Alcohol withdrawal Current Visit: No Status: Acute Code(s): F10.239 - ALCOHOL DEPENDENCE WITH WITHDRAWAL, UNSPECIFIED SNOMED Code(s): 136844881 (2) Alcoholic cirrhosis of liver Current Visit: No Status: Acute Code(s): K70.30 - ALCOHOLIC CIRRHOSIS OF LIVER WITHOUT ASCITES SNOMED Code(s): 559453928 (3) Alcoholic hepatitis without ascites Current Visit: No Status: Acute Code(s): K70.10 - ALCOHOLIC HEPATITIS WITHOUT ASCITES SNOMED Code(s): 078673717 (4) Anemia of chronic disease Current Visit: Yes Status: Acute Code(s): D63.8 - ANEMIA IN OTHER CHRONIC DISEASES CLASSIFIED ELSEWHERE SNOMED Code(s): 618168867 (5) Esophageal dilatation Current Visit: Yes Status: Acute Code(s): K22.8 - OTHER SPECIFIED DISEASES OF ESOPHAGUS SNOMED Code(s): 11836687 (6) Sinus tachycardia Current Visit: Yes Status: Acute Code(s): R00.0 - TACHYCARDIA, UNSPECIFIED SNOMED Code(s): 30645214 (7) Abdominal pain Current Visit: No Status: Acute Code(s): R10.9 - UNSPECIFIED ABDOMINAL PAIN SNOMED Code(s): 36320211 Plan: 1. Alcohol withdrawal. Continue [place] protocol. Continue IV Protonix twice a day, continue Carafate 2. Esophageal dilation, abdominal pain. Likely secondary to alcoholism. GI consult. Continue Reglan for nausea 3. Anemia of chronic disease 4. Alcoholic cirrhosis without ascites
[2019-05-30] MEDS ORDERED: PANTOPRAZOLE 40 MG TABLET PO SCH (09:00)
[2019-05-30] MEDS ORDERED: PANTOPRAZOLE 40 MG/10 ML VIAL IV SCH (09:00)
[2019-05-30 10:24] LABS: Platelet Count 80 k/uL (150-450)
[2019-05-30] MEDS: SODIUM CHLORIDE 0.9% 1,000 ML IV SCH (16:27)
[2019-05-30] MEDS: chlorproMAZINE 25 MG TAB PO SCH ×2 (17:47→22:10)
--- NOTE | 2019-05-30 22:27 | P.CONS ---
History of Present Illness - Reason for Consult Consult date: 05/30/19 Dysphagia, history of EtOH abuse, history of esophageal varices Requesting physician: Alexys Marcus - Chief Complaint Chest pain, dysphagia - History of Present Illness 64-year-old male with a medical history significant for alcoholism, prior GI bleed with EGD on last admission significant for esophageal varices which were banded, hypertension, dyslipidemia, diabetes mellitus, GERD, COPD and atrial fibrillation to the hospital with complaints of chest and abdominal pain, nausea and vomiting. The patient has continued to drink alcohol since his last hospitalization. He reports having chest pain and the sensation of dysphagia. He reports this is been worse over the past 2 days. He reports occasionally having the sensation of pills sticking in his esophagus and episode his windpipe is closing up. He is continued to drink 1 pint a day since last discharge. L ast bowel movement was brown but does believe that there may have been some dark-colored stool over the past few days. As mentioned EGD was performed on 04/16/2019 at which time esophageal varices were banded and portal hypertensive gastropathy. Laboratory evaluation on presentation was significant for total bilirubin 1.2, alkaline phosphatase 175, AST 56 at ALT 20 with INR of 1.2, WBC 3.9, hemoglobin 9.8 with an MCV of 79. Chest CTA on presentation for hepatomegaly and a dilated esophagus. Review of Systems REVIEW OF SYSTEMS: CONSTITUTIONAL: Denies any fevers, chills, weight change or fatigue. CARDIOVASCULAR: Denies any palpitations high or low blood pressures, but did report some chest pain and esophageal dysphagia or presentation. RESPIRATORY: Denies any shortness of breath, hemoptysis or cough. GENITOURINARY: No dysuria or hematuria. MUSCULOSKELETAL: No weakness reported. SKIN: Denies any new rashes or lesions, jaundice or pallor. PSYCHIATRIC: Denies any depression or anxiety, with a known history of alcohol abuse. NEUROLOGY: Denies headache, denies any new focal deficits. EARS/NOSE/THROAT: No recent hearing change, congestion, nasal discharge or sore throat. EYES: No pain in eyes, discharge or change in vision. GASTROINTESTINAL: As per HPI. Past Medical History Past Medical History: Atrial Fibrillation, Chest Pain / Angina, COPD, CVA/TIA, Diabetes Mellitus, GERD/Reflux, GI Bleed, Hearing Disorder / Deafness, Hyperlipidemia, Hypertension, Liver Disease, Pneumonia, Prostate Disorder, Pulmonary Embolus (PE) Additional Past Medical History / Comment(s): GI bleed/ esophageal varicies banded. Other hx: Alcoholism, alcohol withdrawal DTs and possibly a seizure in 2018 r/t withdrawal, chronic alcoholic cirrhosis with portal hypertension and previous history of upper and lower GI bleeding, esophageal varices, previous history of childhood seizure which he outgrew not taking any antiepileptic medication, pulmonary embolism x 2 R lung, TIA, diverticulosis, chronic lower bilateral extremity ankle edema if he walks a lot, previous history of septicemia, cervical disc disease, chronic neck pain, chronic back pain with r sided sciatica, degenerative arthritis involving the lower back, scoliosis, tinnitus, vitamin D deficiency, iron anemia, chronic thrombocytopenia, denies MRSA, C-DIFF -2018 History of Any Multi-Drug Resistant Organisms: MRSA Year Discovered:: 03/17/18 MDRO Source:: stomach Past Surgical History: Appendectomy, Cholecystectomy Additional Past Surgical History / Comment(s): EGDs/esophageal varicies bandings, colonoscopies. Past Anesthesia/Blood Transfusion Reactions: No Reported Reaction Additional Past Anesthesia/Blood Transfusion Reaction / Comm: after appendix removed sob Past Psychological History: Anxiety, Depression Additional Psychological History / Comment(s): PATIENT LIVES IN APARTMENT ALONE WITH HIS DOG, STATES USES A CANE. He gets to [facility], [place], operated by [facility] by [employer] and his sister. He has a nebulizer and a glucometer. 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 His left him many years ago he has adult children that he does not see very often. No experience Smoking Status: Never smoker Past Alcohol Use History: Abuse, Daily, Heavy Additional Past Alcohol Use History / Comment(s): Pt states he drinks 2 pints of liquor every day and last drank / Past Drug Use History: None Reported - Past Family History Mother Family Medical History: COPD, CVA/TIA, Dementia Additional Family Medical History / Comment(s): from a stroke Father Family Medical History: Pneumonia Additional Family Medical History / Comment(s): Father of pneumonia when he was close to 80 yrs old. Medications and Allergies Home Medications Medication Instructions Recorded Confirmed Type Ferrous Sulfate [Iron (65 MG 325 mg PO DAILY 04/24/18 05/29/19 History Elemental)] metFORMIN HCL [Glucophage] 500 mg PO BID 10/19/18 05/29/19 History Magnesium Oxide [Mag-Ox] 400 mg PO DAILY #20 tablet 11/01/18 05/29/19 Rx Pantoprazole Sodium [Protonix] 40 mg PO BID #60 tablet. 11/04/18 05/29/19 Rx Multivitamins, Thera [Multivitamin 1 tab PO DAILY 12/12/18 05/29/19 History (formulary)] Budesonide-Formot 160-4.5 Mcg 2 puff INHALATION RT-BID #1 inh 12/15/18 05/29/19 Rx [Symbicort 160-4.5 Mcg Inhaler] Folic Acid 1 mg PO AC-LUNCH #30 tab 12/15/18 05/29/19 Rx Thiamine Mononitrate (Vit B1) 100 mg PO DAILY@1200 12/29/18 05/29/19 History [Vitamin B-1] Amitriptyline HCl [Elavil] 25 mg PO HS 04/13/19 05/29/19 History Metoprolol Tartrate [Lopressor] 50 mg PO BID tab 04/18/19 05/29/19 Rx Tamsulosin [Flomax] 0.8 mg PO PC-SUPPER #30 cap.er.24h 04/27/19 05/29/19 Rx Acetaminophen Tab [Tylenol] 500 mg PO Q6HR PRN 05/10/19 05/29/19 History cloNIDine HCL [Catapres] 0.1 mg PO BID #60 tab 05/15/19 05/29/19 Rx Sucralfate [Carafate] 1 gm PO AC-TID #30 tablet 05/23/19 05/29/19 Rx Allergies Allergy/AdvReac Type Severity Reaction Status Date / Time adhesive tape Allergy Rash/Hives Verified 05/29/19 13:52 latex Allergy Unknown Verified 05/29/19 13:52 egg AdvReac Nausea & Verified 05/29/19 13:52 Vomiting lisinopril AdvReac EYES Verified 05/29/19 13:52 BURN&ITCH/WEAKNESS tomato AdvReac Nausea & Verified 05/29/19 13:52 Vomiting & Diarrhea Physical Exam Vitals: Vital Signs Temp Pulse Pulse Resp BP BP Pulse Ox 05/30/19 13:00 97.7 F 120 H 16 142/77 97 05/30/19 05:49 98.5 F 113 H 18 137/78 97 05/30/19 00:00 128 H 18 05/29/19 21:10 98.3 F 128 H 18 148/73 99 05/29/19 19:24 138 H 18 131/89 97 05/29/19 17:52 98.7 F 131 H 24 142/92 99 Intake and Output 05/29/19 05/30/19 05/30/19 22:59 06:59 14:59 Intake Total 480 480 Balance 480 480 Intake: Oral 480 480 Other: # Voids 1 1 1 Weight 70.76 kg On physical examination, patient appears comfortable in no apparent distress. HEAD: Normocephalic, atraumatic. EYES: No scleral icterus. No conjunctival injection. MOUTH: No lesions, tongue midline. NECK: Trachea midline, no gross abnormalities. CHEST: Clear to auscultation with no wheezing or rhonchi appreciated. HEART: S1-S2 appreciated. ABDOMEN: Soft, mildly tender to palpation. Bowel sounds are positive. No organomegaly. No guarding or rigidity. EXTREMITIES: No pedal edema. SKIN: No rashes, no jaundice. NEUROLOGIC: Alert and oriented x3. No focal deficits. Results CBC & Chem 7: 05/30/19 07:31 05/30/19 07:31 Labs: Abnormal Lab Results - Last 24 Hours (Table) 05/30/19 05/30/19 Range/Units 07:31 07:31 RBC 3.43 L (4.30-5.90) m/uL Hgb 8.5 L (13.0-17.5) gm/dL Hct 27.4 L (39.0-53.0) % MCV 79.7 L (80.0-100.0) fL MCH 24.9 L (25.0-35.0) pg RDW 18.4 H (11.5-15.5) % Plt Count 80 L (150-450) k/uL Potassium 3.3 L (3.5-5.1) mmol/L BUN 8 L (9-20) mg/dL Glucose 108 H (74-99) mg/dL Total Bilirubin 1.7 H (0.2-1.3) mg/dL Alkaline Phosphatase 175 H (38-126) U/L Albumin 3.1 L (3.5-5.0) g/dL CT scan - chest: report reviewed (CT chest significant for hepatomegaly and a dilated esophagus.) Assessment and Plan (1) Esophageal dilatation Narrative/Plan: 64-year-old male with multiple medical comorbidities including alcohol abuse and prior presentation with complaints of GI bleeding at which time the patient was taken for EGD on 04/16/2019 significant for moderate esophageal varices which were banded as well as portal hypertensive gastropathy. He presents to the hospital with chest and abdominal pain, nausea and vomiting. Patient has known history of anemia, with hemoglobin currently stable 9.8. CT of the chest didn't show esophageal dilation with hepatomegaly noted. Patient has noted intermittent esophageal dysphagia likely secondary to alcoholic esophagitis. Currently symptoms improved. Current Visit: Yes Status: Acute Code(s): K22.8 - OTHER SPECIFIED DISEASES OF ESOPHAGUS SNOMED Code(s): 52249026 (2) Alcoholic liver disease Current Visit: No Status: Acute Code(s): K70.9 - ALCOHOLIC LIVER DISEASE, UNSPECIFIED SNOMED Code(s): 12261988 (3) ETOH abuse Current Visit: No Status: Acute Code(s): F10.10 - ALCOHOL ABUSE, UNCOMPLICATED SNOMED Code(s): 63513867 (4) Esophageal varices Current Visit: No Status: Acute Code(s): I85.00 - ESOPHAGEAL VARICES WITHOUT BLEEDING SNOMED Code(s): 19340338 Plan: Supportive care Okay for sodium restricted diet, currently on clear liquid diet, advance as tolerated Can you Protonix 40 mg twice a day Continue Carafate 3 times a day before meals and at bedtime Continue to monitor for signs or symptoms of GI bleeding Thorazine added for treatment of hiccups Continue to monitor for alcohol withdrawal Continue alcohol abstinence, patient reports plan is for follow-up with [facility] Thank you for allowing us to participate in the care of the patient
[2019-05-31] MEDS: POTASSIUM CHLORIDE ER 20 MEQ TAB.ER PO SCH ×4 (09:29→21:12)
[2019-05-31] MEDS: SUCRALFATE 1 GM TAB PO SCH ×4 (09:29→21:12)
[2019-05-31] MEDS: PANTOPRAZOLE 40 MG/10 ML VIAL IVP SCH ×2 (09:29→21:12)
[2019-05-31] MEDS: MULTIVITAMINS, THERA 1 EACH TAB PO SCH (09:29)
[2019-05-31] MEDS: THIAMINE 100 MG TAB PO SCH ×2 (09:29→17:18)
[2019-05-31] MEDS: chlorproMAZINE 25 MG TAB PO SCH ×4 (09:29→21:12)
[2019-05-31] MEDS ORDERED: metFORMIN 500 MG TAB PO SCH (09:30)
[2019-05-31] MEDS ORDERED: Potassium Replacement Protocol 1 EACH MISC MISCELLANE PRN (09:40)
[2019-05-31] MEDS ORDERED: MULTIVITAMINS, THERA 1 EACH TAB PO SCH (09:45)
--- NOTE | 2019-05-31 09:46 | P.PN ---
Subjective Progress Note Date: 05/31/19 Anders Aguilar is a 64-year-old male with past medical history of alcoholism, GI bleed, frequent hospitalizations for the same, discharged 1 week ago who presented to the emergency department complaining of abdominal pain, nausea, vomiting. Last drink yesterday. He states since leaving the hospital he was not able to go to rehab and continued to drink a fifth of whiskey per day. He continues to minimize and downplay his drinking and states he continues to drink because his nephews were partying at the house and are bad influences. He denies hematemesis, melena, hematochezia. On presentation, he was tachycardic to 130s, hemoglobin 9.8, elevated LFTs, renal function at baseline. D-dimer was indeterminate, CTA chest showed no PE but did demonstrate esophageal dilation and air fluid levels. Serum alcohol 112. 05/31/2019 maintained on CIWA protocol. Tachycardic, vital signs stable Complains of throat tightness, trouble swallowing medications, nonproductive cough- suspect reflux cough, mild occasional hiccups. Continues on PPI, Carafate. Evaluated by GI, with no endoscopy is recommended at this time. Reinforced recommendations for [facility]. Potassium 3.3. Hemoglobin 8.5. Denies chest pain, palpitations or shortness of breath. Objective - Vital Signs Vital signs: Vital Signs Temp 98.5 F 05/31/19 05:00 Pulse 122 H 05/31/19 05:00 Resp 18 05/31/19 05:00 BP 119/64 05/31/19 05:00 Pulse Ox 93 L 05/31/19 05:00 Intake & Output 05/30/19 05/31/19 05/31/19 18:59 06:59 18:59 Intake Total 680 600 Balance 680 600 Intake: Oral 680 600 Other: Voiding Method Toilet # Voids 1 3 - Exam General: Thin white male in no acute distress, sitting up in bed, conversing appropriately. HEENT normocephalic, atraumatic, mucous membranes moist Neck: Supple, no thyromegaly, no JVD Lymph: No cervical or axillary lymphadenopathy CV: Regular rate and rhythm, no murmur. Pulses 2+ Lungs: Normal inspiratory effort, no wheezes rales or rhonchi Abdomen: Soft, epigastric tenderness, hepatomegaly Neuro: Alert and oriented 3, no focal deficits Skin: Warm and dry - Labs CBC & Chem 7: 05/30/19 07:31 05/30/19 07:31 Labs: Abnormal Lab Results - Last 24 Hours (Table) 05/30/19 Range/Units 07:31 RBC 3.43 L (4.30-5.90) m/uL Hgb 8.5 L (13.0-17.5) gm/dL Hct 27.4 L (39.0-53.0) % MCV 79.7 L (80.0-100.0) fL MCH 24.9 L (25.0-35.0) pg RDW 18.4 H (11.5-15.5) % Plt Count 80 L (150-450) k/uL Assessment and Plan Assessment: (1) Alcohol withdrawal Current Visit: No Status: Acute Code(s): F10.239 - ALCOHOL DEPENDENCE WITH WITHDRAWAL, UNSPECIFIED SNOMED Code(s): 976933332 (2) Alcoholic cirrhosis of liver Current Visit: No Status: Acute Code(s): K70.30 - ALCOHOLIC CIRRHOSIS OF LI RUDY WITHOUT ASCITES SNOMED Code(s): 997616712 (3) Alcoholic hepatitis without ascites Current Visit: No Status: Acute Code(s): K70.10 - ALCOHOLIC HEPATITIS WITHOUT ASCITES SNOMED Code(s): 603921277 (4) Anemia of chronic disease Current Visit: Yes Status: Acute Code(s): D63.8 - ANEMIA IN OTHER CHRONIC DISEASES CLASSIFIED ELSEWHERE SNOMED Code(s): 218960540 (5) Esophageal dilatation Current Visit: Yes Status: Acute Code(s): K22.8 - OTHER SPECIFIED DISEASES OF ESOPHAGUS SNOMED Code(s): 18243619 (6) Sinus tachycardia Current Visit: Yes Status: Acute Code(s): R00.0 - TACHYCARDIA, UNSPECIFIED SNOMED Code(s): 47692543 (7) Abdominal pain Current Visit: No Status: Acute Code(s): R10.9 - UNSPECIFIED ABDOMINAL PAIN SNOMED Code(s): 18352416 (8) Gastroesophageal reflux disease (9) Esophageal varices (10 hypokalemia (11) hypomagnesemia Plan: Continue current medication regime ,monitoring and symptomatic treatment. Diet advanced. Electrolytes to be replaced as per replacement protocol as ordered.; Magnesium level pending. Maintain CIWA protocol, PPI, Carafate. Thorazine for hiccups. Tachycardic, Beta madeline/clonidine from home med re gimen resumed. Close monitoring of electrolytes and hemoglobin with repeat labs ordered for a.m. Alcohol cessation, alcohol rehabilitation reinforced. Case management/social work to assist with discharge to [facility] direct from hospital, as soon as tomorrow. The impression and plan of care has been dictated as directed. : I performed a history and examination of this patient, discussed the same with the dictator. I agree with the dictator's note ,documented as a scribe. Any additional findings or plans will be noted.
[2019-05-31] MEDS ORDERED: Magnesium Replacement Protocol 1 EACH MISC MISCELLANE PRN (09:47)
[2019-05-31] MEDS: FERROUS SULFATE 325 MG TAB PO SCH (10:01)
[2019-05-31] MEDS: METOPROLOL TARTRATE 50 MG TAB PO SCH ×2 (10:01→21:12)
[2019-05-31] MEDS: cloNIDine HCL 0.1 MG TAB PO SCH ×2 (10:01→21:11)
[2019-05-31] MEDS: MAGNESIUM OXIDE 400 MG TAB PO SCH (10:01)
[2019-05-31 11:41] LABS: Glucose,Whole Blood 213 mg/dL (75-99)
[2019-05-31] MEDS: INSULIN ASPART (NovoLOG) 100 UNIT/ML VIAL SQ SCH ×3 (13:08→21:11)
[2019-05-31] MEDS: FOLIC ACID 1 MG TAB PO SCH (13:09)
[2019-05-31] MEDS: IPRATROPIUM-ALBUTEROL 3 ML NEB INHALATION PRN ×2 (16:42→20:22)
[2019-05-31 16:52] LABS: Magnesium 1.4 mg/dL (1.6-2.3); Potassium 4.5 mmol/L (3.5-5.1)
[2019-05-31 17:10] LABS: Glucose,Whole Blood 117 mg/dL (75-99)
[2019-05-31] MEDS: TAMSULOSIN 0.4 MG CAP.ER.24H PO SCH (17:17)
[2019-05-31] MEDS: SODIUM CHLORIDE 0.9% 1,000 ML IV SCH (17:17)
[2019-05-31] MEDS: metFORMIN 500 MG TAB PO SCH (17:18)
[2019-05-31 20:01] LABS: Glucose,Whole Blood 156 mg/dL (75-99)
[2019-05-31] MEDS: SYMBICORT 160-4.5 MCG INHALER INHALATION SCH (20:22)
[2019-05-31] MEDS: MAGNESIUM SULFATE-D5W PMX 1 GM in DEXTROSE/WATER 1 100ML.BAG IVPB SCH (22:58)
--- NOTE | 2019-05-31 23:20 | P.PN ---
Subjective Progress Note Date: 05/31/19 Principal diagnosis: Chest pain, dysphagia, abnormal CT esophagus The patient is seen lying in bed. He tolerated advancement of his diet today. No nausea or vomiting. No signs or symptoms of GI bleed. Objective - Vital Signs Vital signs: Vital Signs Temp 98.3 F 05/31/19 21:24 Pulse 82 05/31/19 21:24 Resp 16 05/31/19 21:24 BP 98/63 05/31/19 21:24 Pulse Ox 98 05/31/19 21:24 Intake & Output 05/31/19 05/31/19 06/01/19 06:59 18:59 06:59 Intake Total 600 480 300 Balance 600 480 300 Intake: Oral 600 480 300 Other: Voiding Method Toilet Toilet Toilet # Voids 3 3 2 # Bowel Movements 1 2 - Exam On physical examination, patient appears comfortable in no apparent distress. HEAD: Normocephalic, atraumatic. EYES: No scleral icterus. No conjunctival injection. MOUTH: No lesions, tongue midline. NECK: Trachea midline, no gross abnormalities. CHEST: Clear to auscultation with no wheezing or rhonchi appreciated. HEART: Regular rate and rhythm. ABDOMEN: Soft. Bowel sounds are positive. No organomegaly. No guarding or rigidity. EXTREMITIES: No pedal edema. SKIN: No rashes, no jaundice. NEUROLOGIC: Alert and oriented x3. No focal deficits. - Labs CBC & Chem 7: 05/30/19 07:31 05/31/19 16:04 Labs: Abnormal Lab Results - Last 24 Hours (Table) 05/30/19 05/31/19 05/31/19 Range/Units 07:31 11:29 16:04 POC Glucose (mg/dL) 213 H (75-99) mg/dL Magnesium 1.4 L 1.4 L (1.6-2.3) mg/dL 05/31/19 05/31/19 Range/Units 17:08 20:00 POC Glucose (mg/dL) 117 H 156 H (75-99) mg/dL Magnesium (1.6-2.3) mg/dL Assessment and Plan (1) Esophageal dilatation Narrative/Plan: 64-year-old male with multiple medical comorbidities including alcohol abuse and prior presentation with complaints of GI bleeding at which time the patient was taken for EGD on 04/16/2019 significant for moderate esophageal varices which were banded as well as portal hypertensive gastropathy. He presents to the hospital with chest and abdominal pain, nausea and vomiting. Patient has known history of anemia, with hemoglobin currently stable 9.8. CT of the chest didn't show esophageal dilation with hepatomegaly noted. Patient has noted intermittent esophageal dysphagia likely secondary to alcoholic esophagitis. Currently symptoms improved. Current Visit: Yes Status: Acute Code(s): K22.8 - OTHER SPECIFIED DISEASES OF ESOPHAGUS SNOMED Code(s): 93348762 (2) Alcoholic liver disease Current Visit: No Status: Acute Code(s): K70.9 - ALCOHOLIC LIVER DISEASE, UNSPECIFIED SNOMED Code(s): 19386925 (3) ETOH abuse Current Visit: No Status: Acute Code(s): F10.10 - ALCOHOL ABUSE, UNCOMPLICATED SNOMED Code(s): 48490892 (4) Esophageal varices Current Visit: No Status: Acute Code(s): I85.00 - ESOPHAGEAL VARICES WITHOUT BLEEDING SNOMED Code(s): 07871066 Plan: Supportive care Okay for sodium restricted diet Can you Protonix 40 mg twice a day Continue Carafate 3 times a day before meals and at bedtime Continue to monitor for signs or symptoms of GI bleeding Thorazine for treatment of hiccups Continue to monitor for alcohol withdrawal Continue alcohol abstinence, patient reports plan is for follow-up with [place] Thank you for allowing us to participate in the care of the patient, the GI service will stand by, please call us back with any questions or concerns
[2019-06-01] MEDS: MAGNESIUM SULFATE-D5W PMX 1 GM in DEXTROSE/WATER 1 100ML.BAG IVPB SCH ×2 (00:10→01:43)
[2019-06-01 07:03] LABS: Glucose,Whole Blood 139 mg/dL (75-99)
[2019-06-01] MEDS: INSULIN ASPART (NovoLOG) 100 UNIT/ML VIAL SQ SCH ×4 (07:51→20:40)
[2019-06-01 08:03] LABS: Anisocytosis Slight; Basophils % (A) 0 %; Eosinophils # (A) 0.1 k/uL (0-0.7); Eosinophils % (A) 4 %; HCT 25.9 % (39.0-53.0); HGB 7.9 gm/dL (13.0-17.5); Hypochromasia Marked; Lymphocytes # (A) 1.1 k/uL (1.0-4.8); Lymphocytes % (A) 30 %; MCH 24.7 pg (25.0-35.0); MCHC 30.3 g/dL (31.0-37.0); MCV 81.3 fL (80.0-100.0); Monocytes # (A) 0.2 k/uL (0-1.0); Monocytes % (A) 5 %; Neutrophils # (A) 2.2 k/uL (1.3-7.7); Neutrophils % (A) 59 %; Poikilocytosis Slight; RBC 3.19 m/uL (4.30-5.90); WBC 3.7 k/uL (3.8-10.6)
[2019-06-01] MEDS: MAGNESIUM OXIDE 400 MG TAB PO SCH (08:05)
[2019-06-01] MEDS: FOLIC ACID 1 MG TAB PO SCH (08:05)
[2019-06-01] MEDS: MULTIVITAMINS, THERA 1 EACH TAB PO SCH (08:05)
[2019-06-01] MEDS: METOPROLOL TARTRATE 50 MG TAB PO SCH ×2 (08:05→20:47)
[2019-06-01] MEDS: THIAMINE 100 MG TAB PO SCH ×2 (08:05→16:33)
[2019-06-01] MEDS: PANTOPRAZOLE 40 MG/10 ML VIAL IVP SCH ×2 (08:05→20:47)
[2019-06-01] MEDS: POTASSIUM CHLORIDE ER 20 MEQ TAB.ER PO SCH ×2 (08:06→20:47)
[2019-06-01] MEDS: metFORMIN 500 MG TAB PO SCH ×2 (08:06→16:33)
[2019-06-01] MEDS: cloNIDine HCL 0.1 MG TAB PO SCH ×2 (08:06→20:47)
[2019-06-01] MEDS: FERROUS SULFATE 325 MG TAB PO SCH (08:06)
[2019-06-01] MEDS: SUCRALFATE 1 GM TAB PO SCH ×4 (08:06→20:47)
[2019-06-01 08:07] LABS: Platelet Count 78 k/uL (150-450)
[2019-06-01] MEDS: chlorproMAZINE 25 MG TAB PO SCH ×4 (08:12→21:20)
[2019-06-01] MEDS: SYMBICORT 160-4.5 MCG INHALER INHALATION SCH ×2 (08:12→19:14)
[2019-06-01] MEDS: IPRATROPIUM-ALBUTEROL 3 ML NEB INHALATION PRN ×3 (08:13→19:14)
[2019-06-01 08:21] LABS: African American GFR (CKD) >90 (>60 ml/min/1.73 sqM); Anion Gap 3 mmol/L; Blood Urea Nitrogen 6 mg/dL (9-20); Calcium 8.3 mg/dL (8.4-10.2); Carbon Dioxide 28 mmol/L (22-30); Chloride 106 mmol/L (98-107); Glucose 117 mg/dL (74-99); Magnesium 2.2 mg/dL (1.6-2.3); Non-African American GFR(CKD) >90 (>60 ml/min/1.73 sqM); Potassium 4.1 mmol/L (3.5-5.1); Sodium 137 mmol/L (137-145)
[2019-06-01 11:28] LABS: Glucose,Whole Blood 132 mg/dL (75-99)
[2019-06-01] MEDS: SODIUM CHLORIDE 0.9% 1,000 ML IV SCH (12:48)
[2019-06-01] MEDS: TAMSULOSIN 0.4 MG CAP.ER.24H PO SCH (16:33)
[2019-06-01 16:56] LABS: Glucose,Whole Blood 147 mg/dL (75-99)
--- NOTE | 2019-06-01 17:04 | P.PN ---
Subjective Progress Note Date: 06/01/19 Anders Aguilar is a 64-year-old male with past medical history of alcoholism, GI bleed, frequent hospitalizations for the same, discharged 1 week ago who presented to the emergency department complaining of abdominal pain, nausea, vomiting. Last drink yesterday. He states since leaving the hospital he was not able to go to rehab and continued to drink a fifth of whiskey per day. He continues to minimize and downplay his drinking and states he continues to drink because his nephews were partying at the house and are bad influences. He denies hematemesis, melena, hematochezia. On presentation, he was tachycardic to 130s, hemoglobin 9.8, elevated LFTs, renal function at baseline. D-dimer was indeterminate, CTA chest showed no PE but did demonstrate esophageal dilation and air fluid levels. Serum alcohol 112. 05/31/2019 maintained on CIWA protocol. Tachycardic, vital signs stable Complains of throat tightness, trouble swallowing medications, nonproductive cough- suspect reflux cough, mild occasional hiccups. Continues on PPI, Carafate. Evaluated by GI, with no endoscopy is recommended at this time. Reinforced recommendations for [place] rehab. Potassium 3.3. Hemoglobin 8.5. Denies chest pain, palpitations or shortness of breath. 06/01/2019 complains of midsternal burning. Recently received a.m. Carafate, Protonix. Denies lightheadedness dizziness or focal deficits. Denies palpitations. EKG ordered. no hiccups this morning. Consuming approximate 75% of his trays without nausea vomiting or diarrhea.. Hemoglobin 7.9 without signs or symptoms of bleeding. Objective - Vital Signs Vital signs: Vital Signs Temp 98.1 F 06/01/19 11:15 Pulse 82 06/01/19 16:33 Resp 18 06/01/19 16:33 BP 108/62 06/01/19 16:33 Pulse Ox 98 06/01/19 16:33 Intake & Output 05/31/19 06/01/19 06/01/19 18:59 06:59 18:59 Intake Total 480 2560 240 Balance 480 2560 240 Intake: Intake, IV Titration 460 Amount Magnesium Sulfate-D5w Pmx 300 1 gm In Dextrose/Water 1 100ml.bag @ 100 mls/hr IVPB Q1H TANYA Rx#: [id number] Sodium Chloride 0.9% 1, 160 000 ml @ 20 mls/hr IV . Q24H TANYA Rx#:[id number] Oral 480 2100 240 Other: Voiding Method Toilet Toilet Toilet # Voids 3 2 1 # Bowel Movements 1 2 1 - Exam General: Thin white male in no acute distress, sitting up in bed, conversing appropriately. HEENT normocephalic, atraumatic, mucous membranes moist Neck: Supple, no thyromegaly, no JVD Lymph: No cervical or axillary lymphadenopathy CV: Regular rate and rhythm, no murmur. Pulses 2+ Lungs: Normal inspiratory effort, no wheezes rales or rhonchi Abdomen: Soft, midepigastric tenderness, hepatomegaly Neuro: Alert and oriented 3, no focal deficits Skin: Warm and dry - Labs CBC & Chem 7: 06/01/19 07:16 06/01/19 07:16 Labs: Abnormal Lab Results - Last 24 Hours (Table) 05/31/19 05/31/19 06/01/19 Range/Units 17:08 20:00 07:02 WBC (3.8-10.6) k/uL RBC (4.30-5.90) m/uL Hgb (13.0-17.5) gm/dL Hct (39.0-53.0) % MCH (25.0-35.0) pg MCHC (31.0-37.0) g/dL RDW (11.5-15.5) % Plt Count (150-450) k/uL BUN (9-20) mg/dL Glucose (74-99) mg/dL POC Glucose (mg/dL) 117 H 156 H 139 H (75-99) mg/dL Calcium (8.4-10.2) mg/dL 06/01/19 06/01/19 06/01/19 Range/Units 07:16 07:16 11:19 WBC 3.7 L (3.8-10.6) k/uL RBC 3.19 L (4.30-5.90) m/uL Hgb 7.9 L (13.0-17.5) gm/dL Hct 25.9 L (39.0-53.0) % MCH 24.7 L (25.0-35.0) pg MCHC 30.3 L (31.0-37.0) g/dL RDW 19.0 H (11.5-15.5) % Plt Count 78 L (150-450) k/uL BUN 6 L (9-20) mg/dL Glucose 117 H (74-99) mg/dL POC Glucose (mg/dL) 132 H (75-99) mg/dL Calcium 8.3 L (8.4-10.2) mg/dL 06/01/19 Range/Units 16:54 WBC (3.8-10.6) k/uL RBC (4.30-5.90) m/uL Hgb (13.0-17.5) gm/dL Hct (39.0-53.0) % MCH (25.0-35.0) pg MCHC (31.0-37.0) g/dL RDW (11.5-15.5) % Plt Count (150-450) k/uL BUN (9-20) mg/dL Glucose (74-99) mg/dL POC Glucose (mg/dL) 147 H (75-99) mg/dL Calcium (8.4-10.2) mg/dL Assessment and Plan Assessment: (1) Alcohol withdrawal Current Visit: No Status: Acute Code(s): F10.239 - ALCOHOL DEPENDENCE WITH WITHDRAWAL, UNSPECIFIED SNOMED Code(s): 867451144 (2) Alcoholic cirrhosis of liver Current Visit: No Status: Acute Code(s): K70.30 - ALCOHOLIC CIRRHOSIS OF LIVER WITHOUT ASCITES SNOMED Code(s): 491485812 (3) Alcoholic hepatitis without ascites Current Visit: No Status: Acute Code(s): K70.10 - ALCOHOLIC HEPATITIS WITHOUT ASCITES SNOMED Code(s): 617238925 (4) Anemia of chronic disease Current Visit: Yes Status: Acute Code(s): D63.8 - ANEMIA IN OTHER CHRONIC DISEASES CLASSIFIED ELSEWHERE SNOMED Code(s): 853263951 (5) Esophageal dilatation Current Visit: Yes Status: Acute Code(s): K22.8 - OTHER SPECIFIED DISEASES OF ESOPHAGUS SNOMED Code(s): 86761466 (6) Sinus tachycardia Current Visit: Yes Status: Acute Code(s): R00.0 - TACHYCARDIA, UNSPECIFIED SNOMED Code(s): 45069704 (7) Abdominal pain Current Visit: No Status: Acute Code(s): R10.9 - UNSPECIFIED ABDOMINAL PAIN SNOMED Code(s): 57555797 (8) Gastroesophageal reflux disease (9) Esophageal varices (10 hypokalemia (11) hypomagnesemia Plan: Continue current medication regime ,monitoring and symptomatic treatment. EKG, Pepto-Bismol ordered. Maintain CIWA protocol, PPI, Carafate. Discussed with patient going straight to [place] rehab once discharged from the hospital which patient is in agreement with at this time. [place] appointment is on 06/05/2019. Close monitoring of electrolytes and hemoglobin with repeat labs ordered for a.m. Alcohol cessation, alcohol rehabilitation reinforced. The impression and plan of care has been dictated as directed. : I performed a history and examination of this patient, discussed the same with the dictator. I agree with the dictator's note ,documented as a scribe. Any additional findings or plans will be noted.
[2019-06-01 19:47] LABS: Glucose,Whole Blood 123 mg/dL (75-99)
[2019-06-01] MEDS: BISMUTH SUBSALICYLATE 4,192 MG/240 ML BOTTLE PO PRN (21:20)
[2019-06-02 06:59] LABS: Glucose,Whole Blood 109 mg/dL (75-99)
[2019-06-02] MEDS: INSULIN ASPART (NovoLOG) 100 UNIT/ML VIAL SQ SCH ×4 (07:01→20:00)
[2019-06-02] MEDS: IPRATROPIUM-ALBUTEROL 3 ML NEB INHALATION PRN ×2 (07:34→19:42)
[2019-06-02] MEDS: SYMBICORT 160-4.5 MCG INHALER INHALATION SCH ×2 (07:34→19:42)
[2019-06-02] MEDS: POTASSIUM CHLORIDE ER 20 MEQ TAB.ER PO SCH ×2 (08:24→20:06)
[2019-06-02] MEDS: metFORMIN 500 MG TAB PO SCH ×2 (08:24→17:30)
[2019-06-02] MEDS: FERROUS SULFATE 325 MG TAB PO SCH (08:24)
[2019-06-02] MEDS: MULTIVITAMINS, THERA 1 EACH TAB PO SCH (08:24)
[2019-06-02] MEDS: FOLIC ACID 1 MG TAB PO SCH (08:24)
[2019-06-02] MEDS: METOPROLOL TARTRATE 50 MG TAB PO SCH ×2 (08:24→20:06)
[2019-06-02] MEDS: THIAMINE 100 MG TAB PO SCH ×2 (08:24→17:29)
[2019-06-02] MEDS: cloNIDine HCL 0.1 MG TAB PO SCH ×2 (08:24→20:06)
[2019-06-02] MEDS: SUCRALFATE 1 GM TAB PO SCH ×4 (08:24→20:06)
[2019-06-02] MEDS: chlorproMAZINE 25 MG TAB PO SCH ×4 (08:24→21:24)
[2019-06-02] MEDS: MAGNESIUM OXIDE 400 MG TAB PO SCH (08:25)
[2019-06-02] MEDS: PANTOPRAZOLE 40 MG/10 ML VIAL IVP SCH ×2 (08:25→20:06)
[2019-06-02 11:54] LABS: Glucose,Whole Blood 139 mg/dL (75-99)
[2019-06-02] MEDS: BISMUTH SUBSALICYLATE 4,192 MG/240 ML BOTTLE PO PRN (15:44)
--- NOTE | 2019-06-02 16:00 | P.PN ---
Subjective Progress Note Date: 06/02/19 Anders Aguilar is a 64-year-old male with past medical history of alcoholism, GI bleed, frequent hospitalizations for the same, discharged 1 week ago who presented to the emergency department complaining of abdominal pain, nausea, vomiting. Last drink yesterday. He states since leaving the hospital he was not able to go to rehab and continued to drink a fifth of whiskey per day. He continues to minimize and downplay his drinking and states he continues to drink because his nephews were partying at the house and are bad influences. He denies hematemesis, melena, hematochezia. On presentation, he was tachycardic to 130s, hemoglobin 9.8, elevated LFTs, renal function at baseline. D-dimer was indeterminate, CTA chest showed no PE but did demonstrate esophageal dilation and air fluid levels. Serum alcohol 112. 05/31/2019 maintained on CIWA protocol. Tachycardic, vital signs stable Complains of throat tightness, trouble swallowing medications, nonproductive cough- suspect reflux cough, mild occasional hiccups. Continues on PPI, Carafate. Evaluated by GI, with no endoscopy is recommended at this time. Reinforced recommendations for [place] rehab. Potassium 3.3. Hemoglobin 8.5. Denies chest pain, palpitations or shortness of breath. 06/01/2019 complains of midsternal burning. Recently received a.m. Carafate, Protonix. Denies lightheadedness dizziness or focal deficits. Denies palpitations. EKG ordered. no hiccups this morning. Consuming approximate 75% of his trays without nausea vomiting or diarrhea.. Hemoglobin 7.9 without signs or symptoms of bleeding. 06/02/2019. EKG within normal limits as reviewed per attending. Heartburn resolved. Denies chest pain, palpitations or shortness of breath. Continues to have occasional hiccups, on Thorazine. No DTs. Consuming 100% on diet with no nausea vomiting or diarrhea. Denies abdominal pain. Objective - Vital Signs Vital signs: Vital Signs Temp 97.9 F 06/02/19 12:01 Pulse 65 06/02/19 12:01 Resp 16 06/02/19 12:01 BP 97/63 06/02/19 12:01 Pulse Ox 97 06/02/19 12:01 Intake & Output 06/01/19 06/02/19 06/02/19 18:59 06:59 18:59 Intake Total 240 840 Balance 240 840 Intake: Oral 240 840 Other: Voiding Method Toilet Toilet Toilet # Voids 1 1 3 # Bowel Movements 1 - Exam General: Thin white male in no acute distress, sitting up in bed HEENT normocephalic, atraumatic, mucous membranes moist Neck: Supple, no thyromegaly, no JVD Lymph: No cervical or axillary lymphadenopathy CV: Regular rate and rhythm, no murmur. Pulses 2+ Lungs: Normal inspiratory effort, no wheezes rales or rhonchi Abdomen: Soft, midepigastric tenderness, hepatomegaly Neuro: Alert and oriented 3, no focal deficits Skin: Warm and dry - Labs CBC & Chem 7: 06/01/19 07:16 06/01/19 07:16 Labs: Abnormal Lab Results - Last 24 Hours (Table) 06/01/19 06/01/19 06/02/19 Range/Units 16:54 19:45 06:53 POC Glucose (mg/dL) 147 H 123 H 109 H (75-99) mg/dL 06/02/19 Range/Units 11:52 POC Glucose (mg/dL) 139 H (75-99) mg/dL Assessment and Plan Assessment: (1) Alcohol withdrawal Current Visit: No Status: Acute Code(s): F10.239 - ALCOHOL DEPENDENCE WITH WITHDRAWAL, UNSPECIFIED SNOMED Code(s): 988053404 (2) Alcoholic cirrhosis of liver Current Visit: No Status: Acute Code(s): K70.30 - ALCOHOLIC CIRRHOSIS OF LIVER WITHOUT ASCITES SNOMED Code(s): 579931858 (3) Alcoholic hepatitis without ascites Current Visit: No Status: Acute Code(s): K70.10 - ALCOHOLIC HEPATITIS WITHOUT ASCITES SNOMED Code(s): 457745356 (4) Anemia of chronic disease Current Visit: Yes Status: Acute Code(s): D63.8 - ANEMIA IN OTHER CHRONIC DISEASES CLASSIFIED ELSEWHERE SNOMED Code(s): 704289780 (5) Esophageal dilatation Current Visit: Yes Status: Acute Code(s): K22.8 - OTHER SPECIFIED DISEASES OF ESOPHAGUS SNOMED Code(s): 43479530 (6) Sinus tachycardia Current Visit: Yes Status: Acute Code(s): R00.0 - TACHYCARDIA, UNSPECIFIED SNOMED Code(s): 87440971 (7) Abdominal pain Current Visit: No Status: Acute Code(s): R10.9 - UNSPECIFIED ABDOMINAL PAIN SNOMED Code(s): 47179175 (8) Gastroesophageal reflux disease (9) Esophageal varices (10 hypokalemia (11) hypomagnesemia Plan: Continue current medication regime ,monitoring and symptomatic treatment. Continue on CIWA protocol, PPI, Carafate. Close monitoring of CBC with repeat labs ordered for a.m. Alcohol cessation, alcohol rehabilitation reinforced. Patient continues to express that he would like to be discharged straight to [place] on Wednesday. Discussed with RN ,Cab ride being arranged. [place] appointment is on 06/05/2019. Increase ambulation as tolerated. The impression and plan of care has been dictated as directed. : I performed a history and examination of this patient, discussed the same with the dictator. I agree with the dictator's note ,documented as a scribe. Any additional findings or plans will be noted.
[2019-06-02 17:10] LABS: Glucose,Whole Blood 115 mg/dL (75-99)
[2019-06-02] MEDS: SODIUM CHLORIDE 0.9% 1,000 ML IV SCH (17:18)
[2019-06-02] MEDS: TAMSULOSIN 0.4 MG CAP.ER.24H PO SCH (17:29)
[2019-06-02 20:37] LABS: Glucose,Whole Blood 124 mg/dL (75-99)
[2019-06-03 07:05] LABS: Glucose,Whole Blood 110 mg/dL (75-99)
[2019-06-03 07:41] LABS: Anisocytosis Moderate; Basophils % (A) 0 %; Eosinophils # (A) 0.1 k/uL (0-0.7); Eosinophils % (A) 3 %; HCT 27.1 % (39.0-53.0); HGB 8.3 gm/dL (13.0-17.5); Hypochromasia Marked; Lymphocytes # (A) 1.3 k/uL (1.0-4.8); Lymphocytes % (A) 38 %; MCH 25.3 pg (25.0-35.0); MCHC 30.5 g/dL (31.0-37.0); MCV 82.7 fL (80.0-100.0); Mean Platelet Volume 8.3; Monocytes # (A) 0.2 k/uL (0-1.0); Monocytes % (A) 7 %; Neutrophils # (A) 1.8 k/uL (1.3-7.7); Neutrophils % (A) 51 %; Poikilocytosis Slight; RBC 3.27 m/uL (4.30-5.90); RDW 20.2 % (11.5-15.5); WBC 3.5 k/uL (3.8-10.6)
[2019-06-03 07:55] LABS: African American GFR (CKD) >90 (>60 ml/min/1.73 sqM); Anion Gap 6 mmol/L; Blood Urea Nitrogen 11 mg/dL (9-20); Calcium 8.5 mg/dL (8.4-10.2); Carbon Dioxide 24 mmol/L (22-30); Chloride 108 mmol/L (98-107); Glucose 97 mg/dL (74-99); Non-African American GFR(CKD) >90 (>60 ml/min/1.73 sqM); Potassium 4.6 mmol/L (3.5-5.1); Sodium 138 mmol/L (137-145)
[2019-06-03] MEDS: INSULIN ASPART (NovoLOG) 100 UNIT/ML VIAL SQ SCH ×4 (07:56→20:59)
[2019-06-03 07:57] LABS: Platelet Count 97 k/uL (150-450)
[2019-06-03] MEDS: metFORMIN 500 MG TAB PO SCH ×2 (09:01→17:29)
[2019-06-03] MEDS: MULTIVITAMINS, THERA 1 EACH TAB PO SCH (09:01)
[2019-06-03] MEDS: THIAMINE 100 MG TAB PO SCH ×2 (09:01→17:29)
[2019-06-03] MEDS: cloNIDine HCL 0.1 MG TAB PO SCH ×2 (09:02→21:03)
[2019-06-03] MEDS: METOPROLOL TARTRATE 50 MG TAB PO SCH (09:02)
[2019-06-03] MEDS: FERROUS SULFATE 325 MG TAB PO SCH (09:02)
[2019-06-03] MEDS: MAGNESIUM OXIDE 400 MG TAB PO SCH (09:02)
[2019-06-03] MEDS: POTASSIUM CHLORIDE ER 20 MEQ TAB.ER PO SCH ×2 (09:02→21:02)
[2019-06-03] MEDS: chlorproMAZINE 25 MG TAB PO SCH ×4 (09:02→21:02)
[2019-06-03] MEDS: SUCRALFATE 1 GM TAB PO SCH ×4 (09:02→21:02)
[2019-06-03] MEDS: FOLIC ACID 1 MG TAB PO SCH (09:02)
[2019-06-03] MEDS: PANTOPRAZOLE 40 MG/10 ML VIAL IVP SCH ×2 (09:03→21:03)
[2019-06-03] MEDS: IPRATROPIUM-ALBUTEROL 3 ML NEB INHALATION PRN ×2 (09:14→19:59)
[2019-06-03] MEDS: SYMBICORT 160-4.5 MCG INHALER INHALATION SCH ×2 (09:14→19:58)
[2019-06-03 11:27] LABS: Glucose,Whole Blood 121 mg/dL (75-99)
[2019-06-03 12:36] LABS: ALT 18 U/L (4-49); AST 44 U/L (17-59); Albumin 2.8 g/dL (3.5-5.0); Alkaline Phosphatase 142 U/L (38-126); Total Bilirubin 0.4 mg/dL (0.2-1.3); Total Protein 6.3 g/dL (6.3-8.2)
--- NOTE | 2019-06-03 13:07 | PN ---
PROGRESS NOTE DATE OF SERVICE: 06/03/2019 This 64-year-old gentleman who was admitted with alcohol withdrawal, also generalized weakness. The patient also had relative hypotension. The patient is also being worked up for possible ECF rehab. No chest pain. No palpitations. No fever. PAST MEDICAL HISTORY: Reviewed. REVIEW OF SYSTEMS: CARDIOVASCULAR SYSTEM: No angina. RESPIRATORY SYSTEM: As mentioned earlier. GI: As mentioned earlier. : No dysuria. NERVOUS SYSTEM: As mentioned earlier. CURRENT MEDICATIONS: Current medications are reviewed and include: 1. DuoNeb q.i.d. and p.r.n. 2. Thorazine. 3. Catapres 0.1 p.o. b.i.d. 4. Iron sulfate. 5. NovoLog. 6. Ativan. 7. Reglan. 8. Lopressor 50 mg p.o. b.i.d. 9. P.r.n. medications. 10.Protonix. 11.Carafate. 12.Flomax. 13.Vitamin B1. PHYSICAL EXAM: Patient is alert and oriented x3. Pulse 87, blood pressure 95/63, respirations 16, temperature 97.7, pulse ox 97% on room air. HEENT: Conjunctivae normal. NECK: No jugular venous distention. CARDIOVASCULAR: S1, S2 muffled. RESPIRATORY: Breath sounds diminished at the bases. A few scattered rhonchi and crackles. ABDOMEN: Soft, nontender. No mass palpable. LEGS: No edema. NERVOUS SYSTEM: Diffusely weak. LABS: WBC 3.5, hemoglobin is 8.3. Sodium 138, potassium 4.6. ASSESSMENT: 1. Acute alcohol withdrawal. 2. Alcoholic cirrhosis of the liver. 3. Relative hypotension. 4. Alcoholic hepatitis without any ascites. 5. Anemia of chronic disease. 6. Sinus tachycardia. 7. Abdominal pain. 8. Gastroesophageal reflux disease with esophageal varices. 9. Hypokalemia. 10.Hypomagnesemia. 11.Generalized gait dysfunction. RECOMMENDATIONS AND DISCUSSION: This 64-year-old gentleman who presented with multiple complex medical issues, we will monitor the patient closely. Continue the current medications. Continue symptomatic treatment. Otherwise, I would recommend to cut down the dose of metoprolol 25 b.i.d. and hold metoprolol and clonidine if systolic blood pressure less than 100 mmHg. PT, OT evaluation, possible ECF rehab. Monitor blood sugars closely. Prognosis guarded because of multiple complex medical issues. Further recommendations to follow. I discussed with staff. ROCIO / IJN: [id number] /
[2019-06-03 17:15] LABS: Glucose,Whole Blood 102 mg/dL (75-99)
[2019-06-03] MEDS: TAMSULOSIN 0.4 MG CAP.ER.24H PO SCH (17:29)
[2019-06-03] MEDS: SODIUM CHLORIDE 0.9% 1,000 ML IV SCH (19:39)
[2019-06-03 19:42] LABS: Glucose,Whole Blood 133 mg/dL (75-99)
[2019-06-03] MEDS: METOPROLOL TARTRATE 25 MG TAB PO SCH (21:02)
[2019-06-04 06:58] LABS: Anisocytosis Moderate; Basophils % (A) 0 %; Eosinophils # (A) 0.1 k/uL (0-0.7); Eosinophils % (A) 3 %; HCT 28.4 % (39.0-53.0); HGB 8.5 gm/dL (13.0-17.5); Hypochromasia Marked; Lymphocytes # (A) 1.2 k/uL (1.0-4.8); Lymphocytes % (A) 38 %; MCH 24.6 pg (25.0-35.0); MCV 82.1 fL (80.0-100.0); Mean Platelet Volume 9.2; Microcytosis Slight; Monocytes # (A) 0.3 k/uL (0-1.0); Monocytes % (A) 8 %; Neutrophils # (A) 1.5 k/uL (1.3-7.7); Neutrophils % (A) 49 %; Platelet Count 101 k/uL (150-450); Poikilocytosis Slight; RBC 3.46 m/uL (4.30-5.90); RDW 21.5 % (11.5-15.5)
[2019-06-04 07:06] LABS: Glucose,Whole Blood 100 mg/dL (75-99)
[2019-06-04] MEDS: IPRATROPIUM-ALBUTEROL 3 ML NEB INHALATION PRN (08:35)
[2019-06-04] MEDS: SYMBICORT 160-4.5 MCG INHALER INHALATION SCH ×2 (08:35→20:37)
[2019-06-04] MEDS: INSULIN ASPART (NovoLOG) 100 UNIT/ML VIAL SQ SCH ×4 (09:02→20:13)
[2019-06-04] MEDS: METOPROLOL TARTRATE 25 MG TAB PO SCH ×2 (09:03→20:32)
[2019-06-04] MEDS: MAGNESIUM OXIDE 400 MG TAB PO SCH (09:03)
[2019-06-04] MEDS: THIAMINE 100 MG TAB PO SCH ×2 (09:03→17:43)
[2019-06-04] MEDS: cloNIDine HCL 0.1 MG TAB PO SCH ×2 (09:03→20:32)
[2019-06-04] MEDS: MULTIVITAMINS, THERA 1 EACH TAB PO SCH (09:03)
[2019-06-04] MEDS: SUCRALFATE 1 GM TAB PO SCH ×4 (09:03→20:33)
[2019-06-04] MEDS: FOLIC ACID 1 MG TAB PO SCH (09:03)
[2019-06-04] MEDS: FERROUS SULFATE 325 MG TAB PO SCH (09:03)
[2019-06-04] MEDS: POTASSIUM CHLORIDE ER 20 MEQ TAB.ER PO SCH ×2 (09:03→20:33)
[2019-06-04] MEDS: metFORMIN 500 MG TAB PO SCH ×2 (09:03→17:43)
[2019-06-04] MEDS: PANTOPRAZOLE 40 MG/10 ML VIAL IVP SCH (09:04)
[2019-06-04] MEDS: chlorproMAZINE 25 MG TAB PO SCH ×4 (09:04→21:13)
[2019-06-04 11:11] LABS: Glucose,Whole Blood 164 mg/dL (75-99)
--- NOTE | 2019-06-04 15:44 | PN ---
PROGRESS NOTE DATE OF SERVICE: 06/04/2019 I am covering for Dr. Marcus. This 64-year-old gentleman who was admitted with ETOH, alcohol withdrawal is being closely monitored. The patient was also being worked up for possible ECF rehab at this time. No chest pain. No palpitations. No fever. The lab linda, hemoglobin is 8.4, white count is 3, platelets 101. The patient is complaining of minimal upper abdominal discomfort. PHYSICAL EXAMINATION: On physical exam, pulse is 78, blood pressure 94/61, respirations 16, temperature 97.7, pulse ox 98% on room air. HEENT: Conjunctivae normal. NECK: No JVD. CARDIOVASCULAR: S1, S2 muffled. RESPIRATION: Breath sounds diminished in the bases. No rhonchi. No crackles. ABDOMEN: Soft, minimal diffuse discomfort in the left upper quadrant. No guarding. No rigidity. No mass palpable. NERVOUS SYSTEM: No focal deficits. LABS: WBC 3, hemoglobin 8.5. ASSESSMENT: 1. Acute alcohol withdrawal. 2. Alcoholic cirrhosis of the liver. 3. Possible acute gastritis. 4. Relative hypotension. 5. Alcoholic hepatitis without any ascites. 6. Anemia of chronic disease. 7. Sinus tachycardia. 8. Abdominal pain. 9. Gastroesophageal reflux disease with esophageal varices. 10.Hypokalemia. 11.Hypomagnesemia. 12.Generalized gait dysfunction. RECOMMENDATIONS AND DISCUSSION: Recommend to continue current medications, management and symptomatic treatment, PT/OT evaluation. Otherwise, proton pump inhibitors. Closely follow with Gastroenterology. Dr. Marcus will follow tomorrow. Possible ECF rehab. MMODL / IJN: [id number] /
[2019-06-04 17:08] LABS: Glucose,Whole Blood 135 mg/dL (75-99)
[2019-06-04] MEDS: TAMSULOSIN 0.4 MG CAP.ER.24H PO SCH (17:43)
[2019-06-04] MEDS: PANTOPRAZOLE 40 MG TABLET PO SCH (17:43)
[2019-06-04] MEDS: SODIUM CHLORIDE 0.9% 1,000 ML IV SCH (18:27)
[2019-06-04 19:55] LABS: Glucose,Whole Blood 142 mg/dL (75-99)
[2019-06-05 07:04] LABS: Glucose,Whole Blood 110 mg/dL (75-99)
[2019-06-05] MEDS: POTASSIUM CHLORIDE ER 20 MEQ TAB.ER PO SCH ×2 (07:07→20:40)
[2019-06-05] MEDS: MULTIVITAMINS, THERA 1 EACH TAB PO SCH (07:07)
[2019-06-05] MEDS: metFORMIN 500 MG TAB PO SCH ×2 (07:07→17:42)
[2019-06-05] MEDS: THIAMINE 100 MG TAB PO SCH ×2 (07:07→17:42)
[2019-06-05] MEDS: FERROUS SULFATE 325 MG TAB PO SCH (07:07)
[2019-06-05] MEDS: SUCRALFATE 1 GM TAB PO SCH ×4 (07:07→20:40)
[2019-06-05] MEDS: PANTOPRAZOLE 40 MG TABLET PO SCH ×2 (07:08→17:43)
[2019-06-05] MEDS: METOPROLOL TARTRATE 25 MG TAB PO SCH ×2 (07:08→20:40)
[2019-06-05] MEDS: cloNIDine HCL 0.1 MG TAB PO SCH ×2 (07:08→20:39)
[2019-06-05] MEDS: INSULIN ASPART (NovoLOG) 100 UNIT/ML VIAL SQ SCH ×4 (07:08→20:39)
[2019-06-05] MEDS: MAGNESIUM OXIDE 400 MG TAB PO SCH (07:08)
[2019-06-05] MEDS: chlorproMAZINE 25 MG TAB PO SCH ×4 (07:36→22:30)
[2019-06-05 07:38] LABS: Anisocytosis Moderate; Basophils % (A) 1 %; Eosinophils # (A) 0.1 k/uL (0-0.7); Eosinophils % (A) 4 %; HCT 28.9 % (39.0-53.0); HGB 8.8 gm/dL (13.0-17.5); Hypochromasia Marked; Lymphocytes # (A) 1.2 k/uL (1.0-4.8); Lymphocytes % (A) 42 %; MCHC 30.4 g/dL (31.0-37.0); MCV 82.1 fL (80.0-100.0); Mean Platelet Volume 8.8; Microcytosis Slight; Monocytes # (A) 0.3 k/uL (0-1.0); Monocytes % (A) 12 %; Neutrophils # (A) 1.1 k/uL (1.3-7.7); Neutrophils % (A) 39 %; Platelet Count 116 k/uL (150-450); Poikilocytosis Slight; RBC 3.52 m/uL (4.30-5.90); RDW 20.9 % (11.5-15.5); WBC 2.9 k/uL (3.8-10.6)
[2019-06-05] MEDS: SYMBICORT 160-4.5 MCG INHALER INHALATION SCH ×2 (08:28→19:42)
[2019-06-05 11:43] LABS: Glucose,Whole Blood 117 mg/dL (75-99)
[2019-06-05] MEDS: FOLIC ACID 1 MG TAB PO SCH (12:12)
[2019-06-05] MEDS: SODIUM CHLORIDE 0.9% 1,000 ML IV SCH (12:13)
--- NOTE | 2019-06-05 13:31 | P.PN ---
Subjective Progress Note Date: 06/05/19 Anders Aguilar is a 64-year-old male with past medical history of alcoholism, GI bleed, frequent hospitalizations for the same, discharged 1 week ago who presented to the emergency department complaining of abdominal pain, nausea, vomiting. Last drink yesterday. He states since leaving the hospital he was not able to go to rehab and continued to drink a fifth of whiskey per day. He continues to minimize and downplay his drinking and states he continues to drink because his nephews were partying at the house and are bad influences. He denies hematemesis, melena, hematochezia. On presentation, he was tachycardic to 130s, hemoglobin 9.8, elevated LFTs, renal function at baseline. D-dimer was indeterminate, CTA chest showed no PE but did demonstrate esophageal dilation and air fluid levels. Serum alcohol 112. 05/31/2019 maintained on CIWA protocol. Tachycardic, vital signs stable Complains of throat tightness, trouble swallowing medications, nonproductive cough- suspect reflux cough, mild occasional hiccups. Continues on PPI, Carafate. Evaluated by GI, with no endoscopy is recommended at this time. Reinforced recommendations for [place] rehab. Potassium 3.3. Hemoglobin 8.5. Denies chest pain, palpitations or shortness of breath. 06/01/2019 complains of midsternal burning. Recently received a.m. Carafate, Protonix. Denies lightheadedness dizziness or focal deficits. Denies palpitations. EKG ordered. no hiccups this morning. Consuming approximate 75% of his trays without nausea vomiting or diarrhea.. Hemoglobin 7.9 without signs or symptoms of bleeding. 06/02/2019. EKG within normal limits as reviewed per attending. Heartburn resolved. Denies chest pain, palpitations or shortness of breath. Continues to have occasional hiccups, on Thorazine. No DTs. Consuming 100% on diet with no nausea vomiting or diarrhea. Denies abdominal pain. 06/05/2019 no overnight events. Patient [place] appointment rescheduled for the . No DTs. Denies chest pain, palpitations or shortness of breath. Afebrile. Vital signs stable. Hemoglobin stable, 8.8. Objective - Vital Signs Vital signs: Vital Signs Temp 98 F 06/05/19 12:02 Pulse 91 06/05/19 12:02 Resp 16 06/05/19 12:02 BP 110/65 06/05/19 12:02 Pulse Ox 96 06/05/19 12:02 Intake & Output 06/04/19 06/05/19 06/05/19 18:59 06:59 18:59 Intake Total 800 1180 1580 Balance 800 1180 1580 Intake: Oral 800 1180 1580 Other: Voiding Method Toilet Toilet Toilet # Voids 2 2 2 - Exam General: Thin white male in no acute distress, sitting up in bed HEENT normocephalic, atraumatic, mucous membranes moist Neck: Supple, no thyromegaly, no JVD Lymph: No cervical or axillary lymphadenopathy CV: Regular rate and rhythm, no murmur. Pulses 2+ Lungs: Normal inspiratory effort, no wheezes rales or rhonchi Abdomen: Soft, diffuse left upper quadrant tenderness, hepatomegaly, no guarding. Positive bowel sounds Neuro: Alert and oriented 3, no focal deficits Skin: Warm and dry - Labs CBC & Chem 7: 06/05/19 06:42 06/03/19 07:14 Labs: Abnormal Lab Results - Last 24 Hours (Table) 06/04/19 06/04/19 06/05/19 Range/Units 17:08 19:53 06:42 WBC 2.9 L (3.8-10.6) k/uL RBC 3.52 L (4.30-5.90) m/uL Hgb 8.8 L (13.0-17.5) gm/dL Hct 28.9 L (39.0-53.0) % MCHC 30.4 L (31.0-37.0) g/dL RDW 20.9 H (11.5-15.5) % Plt Count 116 L (150-450) k/uL Neutrophils # 1.1 L (1.3-7.7) k/uL POC Glucose (mg/dL) 135 H 142 H (75-99) mg/dL 06/05/19 06/05/19 Range/Units 06:59 11:19 WBC (3.8-10.6) k/uL RBC (4.30-5.90) m/uL Hgb (13.0-17.5) gm/dL Hct (39.0-53.0) % MCHC (31.0-37.0) g/dL RDW (11.5-15.5) % Plt Count (150-450) k/uL Neutrophils # (1.3-7.7) k/uL POC Glucose (mg/dL) 110 H 117 H (75-99) mg/dL Assessment and Plan Assessment: (1) Alcohol withdrawal Current Visit: No Status: Acute Code(s): F10.239 - ALCOHOL DEPENDENCE WITH WITHDRAWAL, UNSPECIFIED SNOMED Code(s): 681067341 (2) Alcoholic cirrhosis of liver Current Visit: No Status: Acute Code(s): K70.30 - ALCOHOLIC CIRRHOSIS OF LIVER WITHOUT ASCITES SNOMED Code(s): 584012746 (3) Alcoholic hepatitis without ascites Current Visit: No Status: Acute Code(s): K70.10 - ALCOHOLIC HEPATITIS WITHOUT ASCITES SNOMED Code(s): 740997045 (4) Anemia of chronic disease Current Visit: Yes Status: Acute Code(s): D63.8 - ANEMIA IN OTHER CHRONIC DISEASES CLASSIFIED ELSEWHERE SNOMED Code(s): 554383203 (5) Esophageal dilatation Current Visit: Yes Status: Acute Code(s): K22.8 - OTHER SPECIFIED DISEASES OF ESOPHAGUS SNOMED Code(s): 12388783 (6) Sinus tachycardia Current Visit: Yes Status: Acute Code(s): R00.0 - TACHYCARDIA, UNSPECIFIED SNOMED Code(s): 00528458 (7) Abdominal pain Current Visit: No Status: Acute Code(s): R10.9 - UNSPECIFIED ABDOMINAL PAIN SNOMED Code(s): 45324092 (8) Gastroesophageal reflux disease (9) Esophageal varices (10 hypokalemia (11) hypomagnesemia Plan: Continue current medication regime ,monitoring and symptomatic treatment. PT/OT. Increase ambulation as tolerated. Maintain PPI, Carafate. Continue on CIWA protocol, PPI, Carafate. [place] appointment on the . Discharge planning in place for with cab ride to be arranged. Alcohol cessation, alcohol rehabilitation reinforced. The impression and plan of care has been dictated as directed. : I performed a history and examination of this patient, discussed the same with the dictator. I agree with the dictator's note ,documented as a scribe. Any additional findings or plans will be noted.
[2019-06-05 14:39] VITALS: BMI 25.9
[2019-06-05 17:23] LABS: Glucose,Whole Blood 91 mg/dL (75-99)
[2019-06-05] MEDS: TAMSULOSIN 0.4 MG CAP.ER.24H PO SCH (17:43)
[2019-06-05 20:23] LABS: Glucose,Whole Blood 139 mg/dL (75-99)
[2019-06-06 07:11] LABS: Glucose,Whole Blood 102 mg/dL (75-99)
[2019-06-06] MEDS: SYMBICORT 160-4.5 MCG INHALER INHALATION SCH ×2 (07:31→20:20)
[2019-06-06] MEDS: cloNIDine HCL 0.1 MG TAB PO SCH ×2 (07:39→21:28)
[2019-06-06] MEDS: POTASSIUM CHLORIDE ER 20 MEQ TAB.ER PO SCH ×2 (07:39→21:29)
[2019-06-06] MEDS: PANTOPRAZOLE 40 MG TABLET PO SCH ×2 (07:39→17:30)
[2019-06-06] MEDS: THIAMINE 100 MG TAB PO SCH ×2 (07:39→17:30)
[2019-06-06] MEDS: SUCRALFATE 1 GM TAB PO SCH ×4 (07:40→21:29)
[2019-06-06] MEDS: metFORMIN 500 MG TAB PO SCH ×2 (07:40→17:30)
[2019-06-06] MEDS: MULTIVITAMINS, THERA 1 EACH TAB PO SCH (07:40)
[2019-06-06] MEDS: METOPROLOL TARTRATE 25 MG TAB PO SCH ×2 (07:40→21:29)
[2019-06-06] MEDS: chlorproMAZINE 25 MG TAB PO SCH ×4 (07:40→22:29)
[2019-06-06] MEDS: FOLIC ACID 1 MG TAB PO SCH (07:40)
[2019-06-06] MEDS: MAGNESIUM OXIDE 400 MG TAB PO SCH (07:40)
[2019-06-06] MEDS: FERROUS SULFATE 325 MG TAB PO SCH (07:40)
[2019-06-06] MEDS: INSULIN ASPART (NovoLOG) 100 UNIT/ML VIAL SQ SCH ×4 (07:41→21:28)
[2019-06-06 09:06] LABS: Anisocytosis Moderate; Basophils % (A) 1 %; Eosinophils # (A) 0.1 k/uL (0-0.7); Eosinophils % (A) 3 %; HCT 31.2 % (39.0-53.0); HGB 9.2 gm/dL (13.0-17.5); Hypochromasia Marked; Lymphocytes # (A) 1.5 k/uL (1.0-4.8); Lymphocytes % (A) 48 %; MCH 24.9 pg (25.0-35.0); MCHC 29.5 g/dL (31.0-37.0); MCV 84.3 fL (80.0-100.0); Mean Platelet Volume 8.3; Monocytes # (A) 0.3 k/uL (0-1.0); Monocytes % (A) 11 %; Neutrophils # (A) 1.1 k/uL (1.3-7.7); Neutrophils % (A) 35 %; Platelet Count 142 k/uL (150-450); Poikilocytosis Slight; RBC 3.71 m/uL (4.30-5.90); RDW 20.4 % (11.5-15.5); WBC 3.1 k/uL (3.8-10.6)
[2019-06-06 11:19] LABS: Glucose,Whole Blood 203 mg/dL (75-99)
--- NOTE | 2019-06-06 15:46 | P.PN ---
Subjective Progress Note Date: 06/06/19 Anders Aguilar is a 64-year-old male with past medical history of alcoholism, GI bleed, frequent hospitalizations for the same, discharged 1 week ago who presented to the emergency department complaining of abdominal pain, nausea, vomiting. Last drink yesterday. He states since leaving the hospital he was not able to go to rehab and continued to drink a fifth of whiskey per day. He continues to minimize and downplay his drinking and states he continues to drink because his nephews were partying at the house and are bad influences. He denies hematemesis, melena, hematochezia. On presentation, he was tachycardic to 130s, hemoglobin 9.8, elevated LFTs, renal function at baseline. D-dimer was indeterminate, CTA chest showed no PE but did demonstrate esophageal dilation and air fluid levels. Serum alcohol 112. 05/31/2019 maintained on CIWA protocol. Tachycardic, vital signs stable Complains of throat tightness, trouble swallowing medications, nonproductive cough- suspect reflux cough, mild occasional hiccups. Continues on PPI, Carafate. Evaluated by GI, with no endoscopy is recommended at this time. Reinforced recommendations for [facility]. Potassium 3.3. Hemoglobin 8.5. Denies chest pain, palpitations or shortness of breath. 06/01/2019 complains of midsternal burning. Recently received a.m. Carafate, Protonix. Denies lightheadedness dizziness or focal deficits. Denies palpitations. EKG ordered. no hiccups this morning. Consuming approximate 75% of his trays without nausea vomiting or diarrhea.. Hemoglobin 7.9 without signs or symptoms of bleeding. 06/02/2019. EKG within normal limits as reviewed per attending. Heartburn resolved. Denies chest pain, palpitations or shortness of breath. Continues to have occasional hiccups, on Thorazine. No DTs. Consuming 100% on diet with no nausea vomiting or diarrhea. Denies abdominal pain. 06/05/2019 no overnight events. Patient [facility] appointment rescheduled for the . No DTs. Denies chest pain, palpitations or shortness of breath. Afebrile. Vital signs stable. Hemoglobin stable, 8.8. 06/06/2019 no DTs, no hiccups. Diet intake improving. Denies chest pain. Denies abdominal pain. Afebrile. Objective - Vital Signs Vital signs: Vital Signs Temp 97.8 F 06/06/19 05:00 Pulse 91 06/06/19 05:00 Resp 16 06/06/19 05:00 BP 107/72 06/06/19 05:00 Pulse Ox 98 06/06/19 05:00 Intake & Output 06/05/19 06/06/19 06/06/19 18:59 06:59 18:59 Intake Total 1580 Balance 1580 Weight 70.76 kg Intake: Oral 1580 Other: Voiding Method Toilet Toilet # Voids 2 1 - Exam General: Alert and oriented 3, sitting up in bed, no acute distress HEENT normocephalic, atraumatic, mucous membranes moist Neck: Supple, no thyromegaly, no JVD Lymph: No cervical or axillary lymphadenopathy CV: Regular rate and rhythm, no murmur. Pulses 2+ Lungs: Normal inspiratory effort, no wheezes, rales or rhonchi Abdomen: Soft, diffuse left upper quadrant tenderness, hepatomegaly, no guarding. Positive bowel sounds Neuro: Alert and oriented 3, no focal deficits Skin: Warm and dry - Labs CBC & Chem 7: 06/06/19 07:47 06/03/19 07:14 Labs: Abnormal Lab Results - Last 24 Hours (Table) 06/05/19 06/05/19 06/06/19 Range/Units 11:19 20:22 07:10 WBC (3.8-10.6) k/uL RBC (4.30-5.90) m/uL Hgb (13.0-17.5) gm/dL Hct (39.0-53.0) % MCH (25.0-35.0) pg MCHC (31.0-37.0) g/dL RDW (11.5-15.5) % Plt Count (150-450) k/uL Neutrophils # (1.3-7.7) k/uL POC Glucose (mg/dL) 117 H 139 H 102 H (75-99) mg/dL 06/06/19 Range/Units 07:47 WBC 3.1 L (3.8-10.6) k/uL RBC 3.71 L (4.30-5.90) m/uL Hgb 9.2 L (13.0-17.5) gm/dL Hct 31.2 L (39.0-53.0) % MCH 24.9 L (25.0-35.0) pg MCHC 29.5 L (31.0-37.0) g/dL RDW 20.4 H (11.5-15.5) % Plt Count 142 L (150-450) k/uL Neutrophils # 1.1 L (1.3-7.7) k/uL POC Glucose (mg/dL) (75-99) mg/dL Assessment and Plan Assessment: (1) Alcohol withdrawal Current Visit: No Status: Acute Code(s): F10.239 - ALCOHOL DEPENDENCE WITH WITHDRAWAL, UNSPECIFIED SNOMED Code(s): 212482833 (2) Alcoholic cirrhosis of liver Current Visit: No Status: Acute Code(s): K70.30 - ALCOHOLIC CIRRHOSIS OF LI RUDY WITHOUT ASCITES SNOMED Code(s): 131901806 (3) Alcoholic hepatitis without ascites Current Visit: No Status: Acute Code(s): K70.10 - ALCOHOLIC HEPATITIS WITHOUT ASCITES SNOMED Code(s): 333526255 (4) Anemia of chronic disease Current Visit: Yes Status: Acute Code(s): D63.8 - ANEMIA IN OTHER CHRONIC DISEASES CLASSIFIED ELSEWHERE SNOMED Code(s): 812201880 (5) Esophageal dilatation Current Visit: Yes Status: Acute Code(s): K22.8 - OTHER SPECIFIED DISEASES OF ESOPHAGUS SNOMED Code(s): 37186270 (6) Sinus tachycardia Current Visit: Yes Status: Acute Code(s): R00.0 - TACHYCARDIA, UNSPECIFIED SNOMED Code(s): 19425255 (7) Abdominal pain Current Visit: No Status: Acute Code(s): R10.9 - UNSPECIFIED ABDOMINAL PAIN SNOMED Code(s): 99608426 (8) Gastroesophageal reflux disease (9) Esophageal varices (10 hypokalemia (11) hypomagnesemia Plan: Continue current medication regime ,monitoring and symptomatic treatment. Continue on PPI, Carafate. Continue on CIWA protocol, PPI, Carafate. Increase ambulation as tolerated. Close monitoring of hemoglobin, repeat labs ordered for a.m. [facility] appointment on the . Discharge planning in place for Thursday with cab ride to be arranged. Alcohol cessation, alcohol rehabilitation reinforced. The impression and plan of care has been dictated as directed. : I performed a history and examination of this patient, discussed the same with the dictator. I agree with the dictator's note ,documented as a scribe. Any additional findings or plans will be noted.
[2019-06-06 17:02] LABS: Glucose,Whole Blood 119 mg/dL (75-99)
[2019-06-06] MEDS: TAMSULOSIN 0.4 MG CAP.ER.24H PO SCH (17:30)
[2019-06-06] MEDS: BISMUTH SUBSALICYLATE 4,192 MG/240 ML BOTTLE PO PRN (19:33)
[2019-06-06 19:53] LABS: Glucose,Whole Blood 122 mg/dL (75-99)
[2019-06-06] MEDS: SODIUM CHLORIDE 0.9% 1,000 ML IV SCH (21:45)
[2019-06-07 06:57] LABS: Glucose,Whole Blood 112 mg/dL (75-99)
[2019-06-07] MEDS: SYMBICORT 160-4.5 MCG INHALER INHALATION SCH ×2 (07:37→19:37)
[2019-06-07 07:45] LABS: Anisocytosis Moderate; Basophils % (A) 1 %; Eosinophils # (A) 0.1 k/uL (0-0.7); Eosinophils % (A) 3 %; HGB 8.6 gm/dL (13.0-17.5); Hypochromasia Marked; Lymphocytes # (A) 1.2 k/uL (1.0-4.8); Lymphocytes % (A) 41 %; MCH 25.4 pg (25.0-35.0); MCHC 30.6 g/dL (31.0-37.0); Mean Platelet Volume 8.5; Microcytosis Slight; Monocytes # (A) 0.3 k/uL (0-1.0); Monocytes % (A) 10 %; Neutrophils # (A) 1.2 k/uL (1.3-7.7); Neutrophils % (A) 40 %; Platelet Count 137 k/uL (150-450); Poikilocytosis Slight; RBC 3.37 m/uL (4.30-5.90); RDW 20.4 % (11.5-15.5); WBC 2.9 k/uL (3.8-10.6)
[2019-06-07] MEDS: INSULIN ASPART (NovoLOG) 100 UNIT/ML VIAL SQ SCH ×4 (07:45→20:34)
[2019-06-07] MEDS: MULTIVITAMINS, THERA 1 EACH TAB PO SCH (08:17)
[2019-06-07] MEDS: PANTOPRAZOLE 40 MG TABLET PO SCH ×2 (08:17→18:07)
[2019-06-07] MEDS: FERROUS SULFATE 325 MG TAB PO SCH (08:17)
[2019-06-07] MEDS: metFORMIN 500 MG TAB PO SCH ×2 (08:18→18:08)
[2019-06-07] MEDS: METOPROLOL TARTRATE 25 MG TAB PO SCH ×2 (08:18→20:34)
[2019-06-07] MEDS: MAGNESIUM OXIDE 400 MG TAB PO SCH (08:18)
[2019-06-07] MEDS: THIAMINE 100 MG TAB PO SCH ×2 (08:18→18:08)
[2019-06-07] MEDS: cloNIDine HCL 0.1 MG TAB PO SCH ×2 (08:18→20:34)
[2019-06-07] MEDS: POTASSIUM CHLORIDE ER 20 MEQ TAB.ER PO SCH ×2 (08:18→20:34)
[2019-06-07] MEDS: SUCRALFATE 1 GM TAB PO SCH ×4 (08:18→20:34)
[2019-06-07] MEDS: chlorproMAZINE 25 MG TAB PO SCH ×4 (08:18→21:18)
[2019-06-07 11:34] LABS: Glucose,Whole Blood 102 mg/dL (75-99)
--- NOTE | 2019-06-07 12:40 | P.PN ---
Subjective Progress Note Date: 06/07/19 Anders Aguilar is a 64-year-old male with past medical history of alcoholism, GI bleed, frequent hospitalizations for the same, discharged 1 week ago who presented to the emergency department complaining of abdominal pain, nausea, vomiting. Last drink yesterday. He states since leaving the hospital he was not able to go to rehab and continued to drink a fifth of whiskey per day. He continues to minimize and downplay his drinking and states he continues to drink because his nephews were partying at the house and are bad influences. He denies hematemesis, melena, hematochezia. On presentation, he was tachycardic to 130s, hemoglobin 9.8, elevated LFTs, renal function at baseline. D-dimer was indeterminate, CTA chest showed no PE but did demonstrate esophageal dilation and air fluid levels. Serum alcohol 112. 05/31/2019 maintained on CIWA protocol. Tachycardic, vital signs stable Complains of throat tightness, trouble swallowing medications, nonproductive cough- suspect reflux cough, mild occasional hiccups. Continues on PPI, Carafate. Evaluated by GI, with no endoscopy is recommended at this time. Reinforced recommendations for [facility] rehab. Potassium 3.3. Hemoglobin 8.5. Denies chest pain, palpitations or shortness of breath. 06/01/2019 complains of midsternal burning. Recently received a.m. Carafate, Protonix. Denies lightheadedness dizziness or focal deficits. Denies palpitations. EKG ordered. no hiccups this morning. Consuming approximate 75% of his trays without nausea vomiting or diarrhea.. Hemoglobin 7.9 without signs or symptoms of bleeding. 06/02/2019. EKG within normal limits as reviewed per attending. Heartburn resolved. Denies chest pain, palpitations or shortness of breath. Continues to have occasional hiccups, on Thorazine. No DTs. Consuming 100% on diet with no nausea vomiting or diarrhea. Denies abdominal pain. 06/05/2019 no overnight events. Patient [facility] appointment rescheduled for the . No DTs. Denies chest pain, palpitations or shortness of breath. Afebrile. Vital signs stable. Hemoglobin stable, 8.8. 06/06/2019 no DTs, no hiccups. Diet intake improving. Denies chest pain. Denies abdominal pain. Afebrile. 06/07/2019 Feeling better.Denies chest pain, palpitations or shortness of breath. Hemoglobin stable 8.6. Denies abdominal pain. No DTs. Ambulating, showered, tolerating exertion well. Denies lightheadedness, dizziness or focal deficits. Patient reports she is eager to get started rehab at [facility]. [facility] appointment tomorrow morning. Objective - Vital Signs Vital signs: Vital Signs Temp 97.6 F 06/07/19 11:19 Pulse 85 06/07/19 11:19 Resp 18 06/07/19 11:19 BP 105/65 06/07/19 11:19 Pulse Ox 97 06/07/19 11:19 Intake & Output 06/06/19 06/07/19 06/07/19 18:59 06:59 18:59 Intake Total 900 480 Balance 900 480 Intake: Oral 900 480 Other: Voiding Method Toilet Toilet # Voids 2 1 - Exam General: Alert and oriented 3, sitting up in bed, no acute distress HEENT normocephalic, atraumatic, mucous membranes moist Neck: Supple, no thyromegaly, no JVD Lymph: No cervical or axillary lymphadenopathy CV: Regular rate and rhythm, no murmur. Pulses 2+ Lungs: Normal inspiratory effort, no wheezes, rales or rhonchi Abdomen: Soft, nondistended, nontender, no guarding. Positive bowel sounds Neuro: Alert and oriented 3, no focal deficits Skin: Warm and dry - Labs CBC & Chem 7: 06/07/19 07:13 06/03/19 07:14 Labs: Abnormal Lab Results - Last 24 Hours (Table) 06/06/19 06/06/19 06/07/19 Range/Units 17:01 19:51 06:55 WBC (3.8-10.6) k/uL RBC (4.30-5.90) m/uL Hgb (13.0-17.5) gm/dL Hct (39.0-53.0) % MCHC (31.0-37.0) g/dL RDW (11.5-15.5) % Plt Count (150-450) k/uL Neutrophils # (1.3-7.7) k/uL POC Glucose (mg/dL) 119 H 122 H 112 H (75-99) mg/dL 06/07/19 06/07/19 Range/Units 07:13 11:33 WBC 2.9 L (3.8-10.6) k/uL RBC 3.37 L (4.30-5.90) m/uL Hgb 8.6 L (13.0-17.5) gm/dL Hct 28.0 L (39.0-53.0) % MCHC 30.6 L (31.0-37.0) g/dL RDW 20.4 H (11.5-15.5) % Plt Count 137 L (150-450) k/uL Neutrophils # 1.2 L (1.3-7.7) k/uL POC Glucose (mg/dL) 102 H (75-99) mg/dL Assessment and Plan Assessment: (1) Alcohol withdrawal Current Visit: No Status: Acute Code(s): F10.239 - ALCOHOL DEPENDENCE WITH WITHDRAWAL, UNSPECIFIED SNOMED Code(s): 455103437 (2) Alcoholic cirrhosis of liver Current Visit: No Status: Acute Code(s): K70.30 - ALCOHOLIC CIRRHOSIS OF LIVER WITHOUT ASCITES SNOMED Code(s): 906995560 (3) Alcoholic hepatitis without ascites Current Visit: No Status: Acute Code(s): K70.10 - ALCOHOLIC HEPATITIS WITHOUT ASCITES SNOMED Code(s): 405261375 (4) Anemia of chronic disease Current Visit: Yes Status: Acute Code(s): D63.8 - ANEMIA IN OTHER CHRONIC DISEASES CLASSIFIED ELSEWHERE SNOMED Code(s): 699749456 (5) Esophageal dilatation Current Visit: Yes Status: Acute Code(s): K22.8 - OTHER SPECIFIED DISEASES OF ESOPHAGUS SNOMED Code(s): 55445902 (6) Sinus tachycardia Current Visit: Yes Status: Acute Code(s): R00.0 - TACHYCARDIA, UNSPECIFIED SNOMED Code(s): 34082981 (7) Abdominal pain Current Visit: No Status: Acute Code(s): R10.9 - UNSPECIFIED ABDOMINAL PAIN SNOMED Code(s): 92990164 (8) Gastroesophageal reflux disease (9) Esophageal varices (10 hypokalemia (11) hypomagnesemia Plan: Continue current medication regime ,monitoring and symptomatic treatment. Continue on PPI, Carafate. Continue on CIWA protocol, PPI, Carafate. Increase ambulation as tolerated. [facility] appointment on the . Discharge planning in place for tomorrow a.m. with cab ride to be arranged. Alcohol cessation, alcohol rehabilitation reinforced. The impression and plan of care has been dictated as directed. : I performed a history and examination of this patient, discussed the same with the dictator. I agree with the dictator's note ,documented as a scribe. Any additional findings or plans will be noted.
--- NOTE | 2019-06-07 12:59 | P.DS ---
Providers Date of admission: 05/29/19 13:53 Expected date of discharge: 06/08/19 Attending physician: Alexys Marcus MD Primary care physician: Yoon Phillips [facility] Course: Final Diagnoses: (1) Alcohol withdrawal Current Visit: No Status: Acute Code(s): F10.239 - ALCOHOL DEPENDENCE WITH WITHDRAWAL, UNSPECIFIED SNOMED Code(s): 653338870 (2) Alcoholic cirrhosis of liver Current Visit: No Status: Acute Code(s): K70.30 - ALCOHOLIC CIRRHOSIS OF LIVER WITHOUT ASCITES SNOMED Code(s): 901797615 (3) Alcoholic hepatitis without ascites Current Visit: No Status: Acute Code(s): K70.10 - ALCOHOLIC HEPATITIS WITHOUT ASCITES SNOMED Code(s): 564496292 (4) Anemia of chronic disease Current Visit: Yes Status: Acute Code(s): D63.8 - ANEMIA IN OTHER CHRONIC DISEASES CLASSIFIED ELSEWHERE SNOMED Code(s): 864996200 (5) Esophageal dilatation Current Visit: Yes Status: Acute Code(s): K22.8 - OTHER SPECIFIED DISEASES OF ESOPHAGUS SNOMED Code(s): 17204005 (6) Sinus tachycardia Current Visit: Yes Status: Acute Code(s): R00.0 - TACHYCARDIA, UNSPECIFIED SNOMED Code(s): 74106807 (7) Abdominal pain Current Visit: No Status: Acute Code(s): R10.9 - UNSPECIFIED ABDOMINAL PAIN SNOMED Code(s): 09323193 (8) Gastroesophageal reflux disease (9) Esophageal varices (10 hypokalemia (11) hypomagnesemia Hospital course:Anders Aguilar is a 64-year-old male with past medical history of alcoholism, GI bleed, frequent hospitalizations for the same, discharged 1 week ago who presented to the emergency department complaining of abdominal pain, nausea, vomiting. Last drink yesterday. He states since leaving the hospital he was not able to go to rehab and continued to drink a fifth of whiskey per day. He continues to minimize and downplay his drinking and states he continues to drink because his nephews were partying at the house and are bad influences. He denies hematemesis, melena, hematochezia. On presentation, he was tachycardic to 130s, hemoglobin 9.8, elevated LFTs, renal function at baseline. D-dimer was indeterminate, CTA chest showed no PE but did demonstrate esophageal dilation and air fluid levels. Serum alcohol 112. 05/31/2019 maintained on CIWA protocol. Tachycardic, vital signs stable Complains of throat tightness, trouble swallowing medications, nonproductive cough- suspect reflux cough, mild occasional hiccups. Continues on PPI, Carafate. Evaluated by GI, with no endoscopy is recommended at this time. Reinforced recommendations for [facility]. Potassium 3.3. Hemoglobin 8.5. Denies chest pain, palpitations or shortness of breath. 06/01/2019 complains of midsternal burning. Recently received a.m. Carafate, Protonix. Denies lightheadedness dizziness or focal deficits. Denies palpitations. EKG ordered. no hiccups this morning. Consuming approximate 75% of his trays without nausea vomiting or diarrhea.. Hemoglobin 7.9 without signs or symptoms of bleeding. 06/02/2019. EKG within normal limits as reviewed per attending. Heartburn resolved. Denies chest pain, palpitations or shortness of breath. Continues to have occasional hiccups, on Thorazine. No DTs. Consuming 100% on diet with no nausea vomiting or diarrhea. Denies abdominal pain. 06/05/2019 no overnight events. Patient [facility] appointment rescheduled for the . No DTs. Denies chest pain, palpitations or shortness of breath. Afebrile. Vital signs stable. Hemoglobin stable, 8.8. 06/06/2019 no DTs, no hiccups. Diet intake improving. Denies chest pain. Denies abdominal pain. Afebrile. 06/07/2019 Feeling better.Denies chest pain, palpitations or shortness of breath. Hemoglobin stable 8.6. Denies abdominal pain. No DTs. Ambulating, showered, tolerating exertion well. Denies lightheadedness, dizziness or focal deficits. Patient reports she is eager to get started rehab at [facility]. [facility] appointment tomorrow morning. Significant clinical improvement. Patient is being discharged directly to [facility] as per patient's request on 06/08/2019, in a stable condition with her prognosis. - Exam General: Alert and oriented 3, no acute distress CV: Regular rate and rhythm, no murmur. Pulses 2+ Lungs: Normal inspiratory effort, no wheezes, rales or rhonchi Abdomen: Soft, nondistended, nontender, no guarding. Positive bowel sounds Neuro: no focal deficits The impression and plan of care has been dictated as directed. : I performed a history and examination of this patient, discussed the same with the dictator. I agree with the dictator's note ,documented as a scribe. Any additional findings or plans will be noted. Patient Condition at Discharge: Stable Plan - Discharge Summary New Discharge Prescriptions: New metFORMIN HCL [Glucophage] 500 mg PO AC-BID #60 tab Thiamine [Vitamin B-1] 100 mg PO DAILY #30 tab Metoprolol Tartrate [Lopressor] 25 mg PO BID #60 tablet Continue metFORMIN HCL [Glucophage] 500 mg PO BID Sucralfate [Carafate] 1 gm PO AC-TID #90 tablet cloNIDine HCL [Catapres] 0.1 mg PO BID #60 tab Tamsulosin [Flomax] 0.8 mg PO PC-SUPPER #30 cap.er.24h Folic Acid 1 mg PO AC-LUNCH #30 tab Ferrous Sulfate [Iron (65 MG Elemental)] 325 mg PO DAILY #30 tab Magnesium Oxide [Mag-Ox] 400 mg PO DAILY #20 tablet Multivitamins, Thera [Multivitamin (formulary)] 1 tab PO DAILY #30 tab Pantoprazole Sodium [Protonix] 40 mg PO BID #60 tablet. Budesonide-Formot 160-4.5 Mcg [Symbicort 160-4.5 Mcg Inhaler] 2 puff INHALATI ON RT-BID #1 inh Discontinued Thiamine Mononitrate (Vit B1) [Vitamin B-1] 100 mg PO DAILY@1200 Amitriptyline HCl [Elavil] 25 mg PO HS Metoprolol Tartrate [Lopressor] 50 mg PO BID tab Acetaminophen Tab [Tylenol] 500 mg PO Q6HR PRN PRN Reason: Pain Discharge Medication List metFORMIN HCL [Glucophage] 500 mg PO BID 10/19/18 [History] Budesonide-Formot 160-4.5 Mcg [Symbicort 160-4.5 Mcg Inhaler] 2 puff INHALATION RT-BID #1 inh 06/07/19 [Rx] Ferrous Sulfate [Iron (65 MG Elemental)] 325 mg PO DAILY #30 tab 06/07/19 [Rx] Folic Acid 1 mg PO AC-LUNCH #30 tab 06/07/19 [Rx] Magnesium Oxide [Mag-Ox] 400 mg PO DAILY #20 tablet 06/07/19 [Rx] Metoprolol Tartrate [Lopressor] 25 mg PO BID #60 tablet 06/07/19 [Rx] Multivitamins, Thera [Multivitamin (formulary)] 1 tab PO DAILY #30 tab 06/07/19 [Rx] Pantoprazole Sodium [Protonix] 40 mg PO BID #60 tablet.dr 06/07/19 [Rx] Sucralfate [Carafate] 1 gm PO AC-TID #90 tablet 06/07/19 [Rx] Tamsulosin [Flomax] 0.8 mg PO PC-SUPPER #30 cap.er.24h 06/07/19 [Rx] Thiamine [Vitamin B-1] 100 mg PO DAILY #30 tab 06/07/19 [Rx] cloNIDine HCL [Catapres] 0.1 mg PO BID #60 tab 06/07/19 [Rx] metFORMIN HCL [Glucophage] 500 mg PO AC-BID #60 tab 06/07/19 [Rx] Follow up Appointment(s)/Referral(s): [facility] [Outside] - 06/08/19 9:30 am (PATIENT MUST ARRIVE AT [facility] PRIOR TO 0930 FOR INTAKE APPOINTMENT - RAMO GALVAN WILL PAY FOR CAB TRANSPORT TO [facility]) Yoon Phillips DO [Primary Care Provider] - 1 Week () Ambulatory/Diagnostic Orders: Complete Blood Count w/diff [LAB.AMB] Time Frame: 1 Week, Location: None Selected Patient Instructions/Handouts: Metoprolol (By mouth), Anemia (DC), Tachycardia (ED), Esophageal Dilation (DC)
[2019-06-07 13:19] LABS: African American GFR (CKD) >90 (>60 ml/min/1.73 sqM); Anion Gap 8 mmol/L; Blood Urea Nitrogen 11 mg/dL (9-20); Calcium 8.6 mg/dL (8.4-10.2); Carbon Dioxide 22 mmol/L (22-30); Chloride 110 mmol/L (98-107); Glucose 100 mg/dL (74-99); Non-African American GFR(CKD) 84 (>60 ml/min/1.73 sqM); Potassium 4.3 mmol/L (3.5-5.1); Sodium 140 mmol/L (137-145)
[2019-06-07] MEDS: FOLIC ACID 1 MG TAB PO SCH (13:20)
[2019-06-07 16:55] LABS: Glucose,Whole Blood 111 mg/dL (75-99)
[2019-06-07] MEDS: TAMSULOSIN 0.4 MG CAP.ER.24H PO SCH (18:07)
[2019-06-07 20:14] LABS: Glucose,Whole Blood 137 mg/dL (75-99)
[2019-06-07 20:51] VITALS: TEMP 98.2
[2019-06-08 05:04] VITALS: BP 107/67; PULSE 98; RESP 17
[2019-06-08] MEDS: SYMBICORT 160-4.5 MCG INHALER INHALATION SCH (07:04)
[2019-06-08 07:10] LABS: Glucose,Whole Blood 115 mg/dL (75-99)
[2019-06-08] MEDS: THIAMINE 100 MG TAB PO SCH (07:46)
[2019-06-08] MEDS: metFORMIN 500 MG TAB PO SCH (07:46)
[2019-06-08] MEDS: POTASSIUM CHLORIDE ER 20 MEQ TAB.ER PO SCH (07:46)
[2019-06-08] MEDS: METOPROLOL TARTRATE 25 MG TAB PO SCH (07:46)
[2019-06-08] MEDS: MAGNESIUM OXIDE 400 MG TAB PO SCH (07:46)
[2019-06-08] MEDS: chlorproMAZINE 25 MG TAB PO SCH (07:46)
[2019-06-08] MEDS: FERROUS SULFATE 325 MG TAB PO SCH (07:46)
[2019-06-08] MEDS: SUCRALFATE 1 GM TAB PO SCH (07:46)
[2019-06-08] MEDS: MULTIVITAMINS, THERA 1 EACH TAB PO SCH (07:46)
[2019-06-08] MEDS: cloNIDine HCL 0.1 MG TAB PO SCH (07:46)
[2019-06-08] MEDS: PANTOPRAZOLE 40 MG TABLET PO SCH (07:46)
[2019-06-08] MEDS: INSULIN ASPART (NovoLOG) 100 UNIT/ML VIAL SQ SCH (07:47)
== END 2019-06-08 08:50 | DRG 392 ==
LOC: EC 10:43 → 5NMEDONC 13:53
PROVIDERS: ADMIT Family Medicine; ATTEND Family Medicine
DX: K22.8 Other specified diseases of esophagus (principal); K76.6 Portal hypertension; I85.00 Esophageal varices without bleeding; F10.239 Alcohol dependence with withdrawal, unspecified; K20.8 Other esophagitis; D69.6 Thrombocytopenia, unspecified; D63.8 Anemia in other chronic diseases classified elsewhere; I95.9 Hypotension, unspecified; R13.14 Dysphagia, pharyngoesophageal phase; K70.30 Alcoholic cirrhosis of liver without ascites; K70.10 Alcoholic hepatitis without ascites; E87.6 Hypokalemia; E83.42 Hypomagnesemia; E78.5 Hyperlipidemia, unspecified; E11.9 Type 2 diabetes mellitus without complications; K31.89 Other diseases of stomach and duodenum; I10 Essential (primary) hypertension; K21.9 Gastro-esophageal reflux disease without esophagitis; D50.9 Iron deficiency anemia, unspecified; K57.90 Diverticulosis of intestine, part unspecified, without perforation or abscess without bleeding; J44.9 Chronic obstructive pulmonary disease, unspecified; M54.41 Lumbago with sciatica, right side; G89.29 Other chronic pain; M51.36 Other intervertebral disc degeneration, lumbar region; M41.9 Scoliosis, unspecified; M50.90 Cervical disc disorder, unspecified, unspecified cervical region; H93.19 Tinnitus, unspecified ear; E55.9 Vitamin D deficiency, unspecified; F32.9 Major depressive disorder, single episode, unspecified; F41.9 Anxiety disorder, unspecified; N42.9 Disorder of prostate, unspecified; R26.9 Unspecified abnormalities of gait and mobility; I48.91 Unspecified atrial fibrillation; H91.90 Unspecified hearing loss, unspecified ear; Z79.51 Long term (current) use of inhaled steroids; Y90.5 Blood alcohol level of 100-119 mg/100 ml; Z79.84 Long term (current) use of oral hypoglycemic drugs; Z79.899 Other long term (current) drug therapy; Z86.73 Personal history of transient ischemic attack (TIA), and cerebral infarction without residual deficits; Z87.19 Personal history of other diseases of the digestive system; Z87.01 Personal history of pneumonia (recurrent); Z86.711 Personal history of pulmonary embolism; Z86.69 Personal history of other diseases of the nervous system and sense organs; Z86.19 Personal history of other infectious and parasitic diseases; Z86.14 Personal history of Methicillin resistant Staphylococcus aureus infection; Z90.49 Acquired absence of other specified parts of digestive tract; Z98.890 Other specified postprocedural states; Z91.012 Allergy to eggs; Z91.040 Latex allergy status; Z88.8 Allergy status to other drugs, medicaments and biological substances; Z91.018 Allergy to other foods; Z91.048 Other nonmedicinal substance allergy status; Z82.5 Family history of asthma and other chronic lower respiratory diseases; Z81.8 Family history of other mental and behavioral disorders; Z82.3 Family history of stroke; Z83.6 Family history of other diseases of the respiratory system
CPT/HCPCS: 36415; 71046; 71275; 78582; 80048; 80053; 80320; 82150; 83690; 83735; 84132; 84484; 85025; 85379; 85610; 85730; 93005; 94640; 94760; 96361; 96372; 96374; 99285

== ENCOUNTER 2020-01-07 16:35 | Observation (INO) | payer OTHER ==
[2020-01-07] MEDS ORDERED: ASPIRIN 81 MG PO STA (16:59)
[2020-01-07] MEDS ORDERED: NITROGLYCERIN OINT 1 INCH/GM PACKET TOPICAL STA (16:59)
[2020-01-07] MEDS ORDERED: IPRATROPIUM-ALBUTEROL 3 ML NEB INHALATION STA (17:00)
--- NOTE | 2020-01-07 17:04 | ED ---
General Adult HPI - General Chief complaint: Chest Pain Stated complaint: chest pain/SOB Time Seen by Provider: 01/07/20 16:36 Source: patient, RN notes reviewed Mode of arrival: EMS Limitations: no limitations - History of Present Illness Initial comments: Patient is a pleasant 7 he 4-year-old male presenting to the emergency Department with complaints of chest discomfort and difficulty breathing. Patient feels like chest discomfort is pressure in nature. Has been fairly steady for the past few days. Symptoms are minimal now following nitroglycerin by EMS. No history of similar chest discomfort previously. Patient does have history of previous dyspnea associated with COPD. Patient does have occasional dry cough. No leg pain or leg swelling. - Related Data Home Medications Medication Instructions Recorded Confirmed metFORMIN HCL [Glucophage] 500 mg PO BID 10/19/18 05/29/19 Previous Rx's Medication Instructions Recorded Budesonide-Formot 160-4.5 Mcg 2 puff INHALATION RT-BID #1 inh 06/07/19 [Symbicort 160-4.5 Mcg Inhaler] Ferrous Sulfate [Iron (65 MG 325 mg PO DAILY #30 tab 06/07/19 Elemental)] Folic Acid 1 mg PO AC-LUNCH #30 tab 06/07/19 Magnesium Oxide [Mag-Ox] 400 mg PO DAILY #20 tablet 06/07/19 Metoprolol Tartrate [Lopressor] 25 mg PO BID #60 tablet 06/07/19 Multivitamins, Thera [Multivitamin 1 tab PO DAILY #30 tab 06/07/19 (formulary)] Pantoprazole Sodium [Protonix] 40 mg PO BID #60 tablet. 06/07/19 Potassium Chloride ER [K-Dur 20] 20 meq PO BID #14 tab.er.prt 06/07/19 Sucralfate [Carafate] 1 gm PO AC-TID #90 tablet 06/07/19 Tamsulosin [Flomax] 0.8 mg PO PC-SUPPER #30 cap.er.24h 06/07/19 Thiamine [Vitamin B-1] 100 mg PO DAILY #30 tab 06/07/19 cloNIDine HCL [Catapres] 0.1 mg PO BID #60 tab 06/07/19 metFORMIN HCL [Glucophage] 500 mg PO AC-BID #60 tab 06/07/19 Allergies Allergy/AdvReac Type Severity Reaction Status Date / Time adhesive tape Allergy Rash/Hives Verified 01/07/20 16:45 latex Allergy Unknown Verified 01/07/20 16:45 egg AdvReac Nausea & Verified 01/07/20 16:45 Vomiting lisinopril AdvReac EYES Verified 01/07/20 16:45 BURN&ITCH/WEAKNESS tomato AdvReac Nausea & Verified 01/07/20 16:45 Vomiting & Diarrhea Review of Systems ROS Statement: Those systems with pertinent positive or pertinent negative responses have been documented in the HPI. ROS Other: All systems not noted in ROS Statement are negative. Constitutional: Denies: fever Eyes: Denies: eye pain ENT: Denies: ear pain Respiratory: Reports: cough, dyspnea Cardiovascular: Reports: chest pain Endocrine: Reports: fatigue Gastrointestinal: Denies: abdominal pain Genitourinary: Denies: dysuria Musculoskeletal: Denies: back pain Skin: Denies: rash Neurological: Denies: weakness Past Medical History Past Medical History: Atrial Fibrillation, Chest Pain / Angina, COPD, CVA/TIA, D iabetes Mellitus, GERD/Reflux, GI Bleed, Hearing Disorder / Deafness, Hyperlipidemia, Hypertension, Liver Disease, Pneumonia, Prostate Disorder, Pulmonary Embolus (PE) Additional Past Medical History / Comment(s): GI bleed/ esophageal varicies banded. Other hx: Alcoholism, alcohol withdrawal DTs and possibly a seizure in 2018 r/t withdrawal, chronic alcoholic cirrhosis with portal hypertension and previous history of upper and lower GI bleeding, esophageal varices, previous history of childhood seizure which he outgrew not taking any antiepileptic medication, pulmonary embolism x 2 R lung, TIA, diverticulosis, chronic lower bilateral extremity ankle edema if he walks a lot, previous history of septicemia, cervical disc disease, chronic neck pain, chronic back pain with r sided sciatica, degenerative arthritis involving the lower back, scoliosis, tinnitus, vitamin D deficiency, iron anemia, chronic thrombocytopenia, denies MRSA, C-DIFF -2018 History of Any Multi-Drug Resistant Organisms: MRSA Date of last positivie culture/infection: 03/17/18 MDRO Source:: stomach Past Surgical History: Appendectomy, Cholecystectomy Additional Past Surgical History / Comment(s): EGDs/esophageal varicies bandings, colonoscopies. Past Anesthesia/Blood Transfusion Reactions: No Reported Reaction Additional Past Anesthesia/Blood Transfusion Reaction / Comment(s): after appendix removed sob Past Psychological History: Anxiety, Depression Smoking Status: Current some day smoker Past Alcohol Use History: Abuse, Daily, Heavy Past Drug Use History: None Reported - Past Family History Mother Family Medical History: COPD, CVA/TIA, Dementia Additional Family Medical History / Comment(s): from a stroke Father Family Medical History: Pneumonia Additional Family Medical History / Comment(s): Father of pneumonia when he was close to 80 yrs old. General Exam Limitations: no limitations General appearance: alert, in no apparent distress Head exam: Present: normocephalic Eye exam: Present: normal appearance Neck exam: Present: normal inspection Respiratory exam: Present: wheezes Cardiovascular Exam: Present: regular rate, normal rhythm Expanded Peripheral pulses: 2+: Radial (R), Radial (L), Dorsalis Pedis (R), Dorsalis Pedis (L) GI/Abdominal exam: Present: soft. Absent: tenderness Extremities exam: Present: normal inspection. Absent: pedal edema, calf tenderness Neurological exam: Present: alert Psychiatric exam: Present: normal affect, normal mood Skin exam: Present: normal color Course Vital Signs 01/07/20 01/07/20 01/07/20 16:38 17:30 17:40 Temperature 99.2 F Pulse Rate 84 75 77 Respiratory 22 18 Rate Blood Pressure 129/92 142/97 O2 Sat by Pulse 97 95 Oximetry 01/07/20 18:00 Temperature Pulse Rate 79 Respiratory 18 Rate Blood Pressure 153/98 O2 Sat by Pulse 94 L Oximetry EKG Findings - EKG Comments: EKG Findings:: Normal sinus rhythm at 81. RI 168. QRS 72. QT 390. QTC 453. Left axis. LVH criteria. No acute ST change. Medical Decision Making - Medical Decision Making Patient reevaluated and resting comfortably in bed. Patient updated on results and plan. Case was discussed with Dr. Beck, who will admit his patient. - Lab Data Result diagrams: 01/07/20 17:08 01/07/20 17:08 Lab Results 01/07/20 01/07/20 01/07/20 Range/Units 17:08 17:08 17:08 WBC 7.3 (3.8-10.6) k/uL RBC 4.71 (4.30-5.90) m/uL Hgb 14.0 (13.0-17.5) gm/dL Hct 43.4 (39.0-53.0) % MCV 92.2 (80.0-100.0) fL MCH 29.8 (25.0-35.0) pg MCHC 32.3 (31.0-37.0) g/dL RDW 15.1 (11.5-15.5) % Plt Count 164 (150-450) k/uL Neutrophils % 51 % Lymphocytes % 41 % Monocytes % 5 % Eosinophils % 1 % Basophils % 1 % Neutrophils # 3.7 (1.3-7.7) k/uL Lymphocytes # 3.0 (1.0-4.8) k/uL Monocytes # 0.4 (0-1.0) k/uL Eosinophils # 0.1 (0-0.7) k/uL Basophils # 0.1 (0-0.2) k/uL PT 11.3 (9.0-12.0) sec INR 1.1 (<1.2) APTT 24.7 (22.0-30.0) sec Sodium 143 (137-145) mmol/L Potassium 4.4 (3.5-5.1) mmol/L Chloride 109 H (98-107) mmol/L Carbon Dioxide 22 (22-30) mmol/L Anion Gap 12 mmol/L BUN 10 (9-20) mg/dL Creatinine 0.89 (0.66-1.25) mg/dL Est GFR (CKD-EPI)AfAm >90 (>60 ml/min/1.73 sqM) Est GFR (CKD-EPI)NonAf >90 (>60 ml/min/1.73 sqM) Glucose 116 H (74-99) mg/dL Calcium 8.6 (8.4-10.2) mg/dL Magnesium 1.7 (1.6-2.3) mg/dL Total Bilirubin 0.6 (0.2-1.3) mg/dL AST 58 (17-59) U/L ALT 23 (4-49) U/L Alkaline Phosphatase 93 (38-126) U/L Troponin I (0.000-0.034) ng/mL NT-Pro-B Natriuret Pep pg/mL Total Protein 7.3 (6.3-8.2) g/dL Albumin 3.9 (3.5-5.0) g/dL 01/07/20 01/07/20 Range/Units 17:08 17:08 WBC (3.8-10.6) k/uL RBC (4.30-5.90) m/uL Hgb (13.0-17.5) gm/dL Hct (39.0-53.0) % MCV (80.0-100.0) fL MCH (25.0-35.0) pg MCHC (31.0-37.0) g/dL RDW (11.5-15.5) % Plt Count (150-450) k/uL Neutrophils % % Lymphocytes % % Monocytes % % Eosinophils % % Basophils % % Neutrophils # (1.3-7.7) k/uL Lymphocytes # (1.0-4.8) k/uL Monocytes # (0-1.0) k/uL Eosinophils # (0-0.7) k/uL Basophils # (0-0.2) k/uL PT (9.0-12.0) sec INR (<1.2) APTT (22.0-30.0) sec Sodium (137-145) mmol/L Potassium (3.5-5.1) mmol/L Chloride (98-107) mmol/L Carbon Dioxide (22-30) mmol/L Anion Gap mmol/L BUN (9-20) mg/dL Creatinine (0.66-1.25) mg/dL Est GFR (CKD-EPI)AfAm (>60 ml/min/1.73 sqM) Est GFR (CKD-EPI)NonAf (>60 ml/min/1.73 sqM) Glucose (74-99) mg/dL Calcium (8.4-10.2) mg/dL Magnesium (1.6-2.3) mg/dL Total Bilirubin (0.2-1.3) mg/dL AST (17-59) U/L ALT (4-49) U/L Alkaline Phosphatase (38-126) U/L Troponin I <0.012 (0.000-0.034) ng/mL NT-Pro-B Natriuret Pep 98 pg/mL Total Protein (6.3-8.2) g/dL Albumin (3.5-5.0) g/dL - Radiology Data Radiology results: image reviewed (Chest x-ray shows some fibrosis. No acute process) Disposition Clinical Impression: Chest pain, COPD with exacerbation Disposition: ADMITTED IP TO THIS HOSP Is patient prescribed a controlled substance at d/c from ED?: No Referrals: Doug Beck MD [Primary Care Provider] - 1-2 days Decision Time: 18:09
[2020-01-07 17:35] LABS: Basophils # (A) 0.1 k/uL (0-0.2); Basophils % (A) 1 %; Eosinophils # (A) 0.1 k/uL (0-0.7); Eosinophils % (A) 1 %; HCT 43.4 % (39.0-53.0); Lymphocytes % (A) 41 %; MCH 29.8 pg (25.0-35.0); MCHC 32.3 g/dL (31.0-37.0); MCV 92.2 fL (80.0-100.0); Mean Platelet Volume 7.6; Monocytes # (A) 0.4 k/uL (0-1.0); Monocytes % (A) 5 %; Neutrophils # (A) 3.7 k/uL (1.3-7.7); Neutrophils % (A) 51 %; Platelet Count 164 k/uL (150-450); RBC 4.71 m/uL (4.30-5.90); RDW 15.1 % (11.5-15.5); WBC 7.3 k/uL (3.8-10.6)
[2020-01-07 17:44] LABS: INR 1.1 (<1.2); Partial Thromboplastin Time 24.7 sec (22.0-30.0); Prothrombin Time 11.3 sec (9.0-12.0)
[2020-01-07 17:49] LABS: ALT 23 U/L (4-49); AST 58 U/L (17-59); African American GFR (CKD) >90 (>60 ml/min/1.73 sqM); Albumin 3.9 g/dL (3.5-5.0); Alkaline Phosphatase 93 U/L (38-126); Anion Gap 12 mmol/L; Blood Urea Nitrogen 10 mg/dL (9-20); Calcium 8.6 mg/dL (8.4-10.2); Carbon Dioxide 22 mmol/L (22-30); Chloride 109 mmol/L (98-107); Glucose 116 mg/dL (74-99); Magnesium 1.7 mg/dL (1.6-2.3); Non-African American GFR(CKD) >90 (>60 ml/min/1.73 sqM); Potassium 4.4 mmol/L (3.5-5.1); Sodium 143 mmol/L (137-145); Total Bilirubin 0.6 mg/dL (0.2-1.3); Total Protein 7.3 g/dL (6.3-8.2)
--- NOTE | 2020-01-07 17:58 | XR ---
EXAMINATION TYPE: XR chest 2V DATE OF EXAM: 01/07/2020 COMPARISON: 05/29/2019 HISTORY: Chest pain TECHNIQUE: 2 views FINDINGS: There is no heart failure nor confluent pneumonic infiltrate. There is coarsening of inters titial markings. There are chest leads. Costophrenic angles are clear. IMPRESSION: Mild pulmonary fibrotic changes. No acute lung disease. No change.
[2020-01-07] MEDS ORDERED: IPRATROPIUM-ALBUTEROL 3 ML NEB INHALATION PRN (18:09)
[2020-01-07] MEDS ORDERED: NITROGLYCERIN SL TABS 0.4 MG TAB SUBLINGUAL PRN (18:09)
[2020-01-07] MEDS ORDERED: methylPREDNISolone SOD SUCCI 125 MG/2 ML VIAL IV STA (18:09)
[2020-01-07] MEDS: IPRATROPIUM-ALBUTEROL 3 ML NEB INHALATION SCH (20:17)
[2020-01-07 20:51] VITALS: RESP 18
[2020-01-08] MEDS ORDERED: ONDANSETRON 4 MG TAB PO PRN (00:49)
[2020-01-08] MEDS: methylPREDNISolone SOD SUCCI 125 MG/2 ML VIAL IV SCH ×3 (01:36→12:42)
[2020-01-08] MEDS: NITROGLYCERIN OINT 1 INCH/GM PACKET TOPICAL SCH ×3 (01:36→12:38)
[2020-01-08 06:27] LABS: Cholesterol 246 mg/dL (<200); HDL Cholesterol 69 mg/dL (40-60); LDL Cholesterol,Calculated 149 mg/dL (0-99); Triglycerides 140 mg/dL (<150)
[2020-01-08] MEDS: IPRATROPIUM-ALBUTEROL 3 ML NEB INHALATION SCH ×3 (08:01→15:16)
[2020-01-08] MEDS ORDERED: ASPIRIN 325 MG TAB PO SCH (09:00)
[2020-01-08 09:23] VITALS: TEMP 97.8
[2020-01-08] MEDS ORDERED: HYDROcodone/APAP 5-325MG 1 EACH TAB PO PRN (12:14)
[2020-01-08] MEDS ORDERED: traZODone HCL 50 MG TAB PO PRN (12:14)
[2020-01-08] MEDS ORDERED: SUCRALFATE 1 GM TAB PO SCH (12:30)
--- NOTE | 2020-01-08 14:20 | HP ---
HISTORY AND PHYSICAL CHIEF COMPLAINT: Shortness of breath and chest pain. HISTORY OF PRESENT ILLNESS: This is another admission for this 64-year-old white male. He came to the emergency room complaining of a pressure-like sensation in the chest. Studies in the ER were negative. He stated that he had some shortness of breath. He had no fever, chills. He stated that he had generalized myalgias. He had no fever, chills, sputum production, hemoptysis, nausea, vomiting, diarrhea, headache, loss of taste and smell, etc. REVIEW OF SYSTEMS: Otherwise unremarkable. He had no radiation of the pain in the back, jaw, arms, etc. Past medical history, family and personal and social histories reveal that he is: ALLERGIC: To [employer]. CURRENT MEDICATIONS: Include Naprosyn 500 twice a day p.r.n., trazodone 50 mg bedtime, Vicodin 5-325 QD p.r.n., sucralfate 1 g 4 times a day, tamsulosin 0.4 mg once a day, clonidine 0.1 once a day, metoprolol 100 mg twice a day, ferrous sulfate 325 once a day, folic acid, potassium and B1. The remainder of his history is unremarkable. He has a history of diet-controlled diabetes. Surgically, he has had a cholecystectomy, appendectomy, and he has had a history of diverticulitis. May 2015 he was hospitalized for a CVA. He has never smoked and he does not drink. PHYSICAL EXAMINATION: Blood pressure 128/90, pulse 64, respirations 18, he is afebrile. In general, he appeared to be well developed, well nourished, in no acute distress. Skin color is normal, skin is warm dry and lymph nodes not enlarged. Head, ears, eyes, nose, mouth, and throat were normal. Neck veins not distended. Thyroid is not enlarged. Chest is clear to auscultation and percussion. Cardiac exam demonstrated normal sinus rhythm and no murmurs or extra sounds. The abdomen is soft, nontender without any visceromegaly or masses. Bowel sounds are present. Extremities are normal. Neurologically he is intact. IMPRESSION: Chest pain, shortness of breath, etiology unknown. PLAN: 1. Bed rest. 2. IV fluids. 3. Serial EKGs and enzymes. 4. COVID-19 nasal swab. 5. Resume his usual medications. MMODL / IJN: [id number] /
[2020-01-08 14:56] VITALS: BP 165/86; PULSE 77
[2020-01-08 16:42] LABS: Glucose,Whole Blood 142 mg/dL (75-99)
[2020-01-08] MEDS ORDERED: metFORMIN 500 MG TAB PO SCH (17:30)
[2020-01-08] MEDS ORDERED: cloNIDine HCL 0.1 MG TAB PO SCH (21:00)
[2020-01-08] MEDS ORDERED: POTASSIUM CHLORIDE ER 20 MEQ TAB.ER PO SCH (21:00)
[2020-01-08] MEDS ORDERED: METOPROLOL TARTRATE 50 MG TAB PO SCH (21:00)
[2020-01-09] MEDS ORDERED: TAMSULOSIN 0.4 MG CAP.ER.24H PO SCH (09:00)
[2020-01-09] MEDS ORDERED: FERROUS SULFATE 325 MG TAB PO SCH (09:00)
[2020-01-09] MEDS ORDERED: FOLIC ACID 1 MG TAB PO SCH (09:00)
--- NOTE | 2020-01-10 16:56 | DS ---
DISCHARGE SUMMARY DATE OF DISCHARGE: 01/08/2020 CHIEF COMPLAINT: Chest pain. HISTORY OF PRESENT ILLNESS AND PHYSICAL EXAMINATION: Details of this man's history and physical can be found in the initial workup. LABORATORY STUDIES: While he was in the hospital he had laboratory studies, details of which can be found in the laboratory section of his chart. COURSE IN THE HOSPITAL: After admission he was placed on bedrest, started on intravenous fluids and had serial EKGs and enzymes; they were normal. His EKGs were unremarkable. He is doing well and it is felt he could be discharged on the 01/08/2020. He will go home on usual activity, diet and medication and follow up in the office in several days. FINAL DIAGNOSIS: Atypical chest pain. OPERATIONS: None. CONSULTATIONS: None. He is improved. ROCIO / MICHAEL: [id number] /
== END 2020-01-08 18:25 | disposition home or self-care (01) ==
LOC: EC 16:35 → 3NCARDOBS 18:09
PROVIDERS: ADMIT Family Medicine; ATTEND Family Medicine
DX: R07.89 Other chest pain (principal); J44.1 Chronic obstructive pulmonary disease with (acute) exacerbation; Z20.828 Contact with and (suspected) exposure to other viral communicable diseases; M79.10 Myalgia, unspecified site; E11.9 Type 2 diabetes mellitus without complications; E78.5 Hyperlipidemia, unspecified; F17.200 Nicotine dependence, unspecified, uncomplicated; H91.90 Unspecified hearing loss, unspecified ear; I10 Essential (primary) hypertension; I48.91 Unspecified atrial fibrillation; Z79.51 Long term (current) use of inhaled steroids; Z79.899 Other long term (current) drug therapy; Z82.3 Family history of stroke; Z82.5 Family history of asthma and other chronic lower respiratory diseases; Z86.711 Personal history of pulmonary embolism; Z86.73 Personal history of transient ischemic attack (TIA), and cerebral infarction without residual deficits
CPT/HCPCS: 93005 ×2; 96376; 96374; 99285; 36415; 94640; 83880; 80061; 80053; 83735; 84484; 85025; 85610; 85730; 71046; G0378 ×2; U0003; J2930 ×2

== ENCOUNTER 2020-11-02 | Inpatient (IN) | payer OTHER | END 2020-11-02 11:34 | disposition home or self-care (01) | DRG 392 | PROVIDERS: ADMIT Family Medicine | DX: A08.4 Viral intestinal infection, unspecified (principal); K76.6 Portal hypertension; E11.9 Type 2 diabetes mellitus without complications; E78.5 Hyperlipidemia, unspecified; E86.0 Dehydration; G89.29 Other chronic pain; K74.60 Unspecified cirrhosis of liver; F10.21 Alcohol dependence, in remission; H91.90 Unspecified hearing loss, unspecified ear; M54.2 Cervicalgia; I10 Essential (primary) hypertension; K21.9 Gastro-esophageal reflux disease without esophagitis; I48.91 Unspecified atrial fibrillation; J44.9 Chronic obstructive pulmonary disease, unspecified; Z20.822 Contact with and (suspected) exposure to COVID-19; Z79.899 Other long term (current) drug therapy; Z82.3 Family history of stroke; Z82.5 Family history of asthma and other chronic lower respiratory diseases; Z86.711 Personal history of pulmonary embolism; Z86.73 Personal history of transient ischemic attack (TIA), and cerebral infarction without residual deficits; Z87.01 Personal history of pneumonia (recurrent); Z90.49 Acquired absence of other specified parts of digestive tract; Z79.84 Long term (current) use of oral hypoglycemic drugs; Z86.14 Personal history of Methicillin resistant Staphylococcus aureus infection; Z88.8 Allergy status to other drugs, medicaments and biological substances; Z91.012 Allergy to eggs; Z91.040 Latex allergy status | CPT/HCPCS: 36415; 71046; 74018; 80048; 80053; 81001; 82150; 82550; 83690; 83735; 84132; 84484; 85025; 87635; 93005; 96361; 96374; 96375; 99285 ==

== ENCOUNTER 2021-03-02 12:34 | Inpatient (IN) | payer OTHER ==
[2021-03-02] MEDS ORDERED: DILTIAZEM DRIP BOLUS FROM BAG 1 MG SOLN IV ONE (12:44)
[2021-03-02] MEDS ORDERED: DILTIAZEM 125 MG in SODIUM CHLORIDE 0.9% 100 ML IV SCH (12:45)
--- NOTE | 2021-03-02 12:48 | ED ---
SOB HPI - General Chief Complaint: Shortness of Breath Stated Complaint: High Blood Pressure Time Seen by Provider: 03/02/21 12:35 Source: patient, RN notes reviewed, old records reviewed Mode of arrival: ambulatory Limitations: no limitations - History of Present Illness Initial Comments: 65-year-old male with history of multiple medical issues including atrial fibrillation who presents by EMS with complaints of 3 days of shortness of breath with fever cough palpitations and retrosternal chest discomfort. He did get some relief after the updraft given by paramedics on the way in. No nausea no vomiting no other voiced complaints at this time. MD Complaint: shortness of breath, cough, chest pain - Related Data Home Medications Medication Instructions Recorded Confirmed Folic Acid 1 mg PO DAILY 01/07/20 10/30/20 HYDROcodone/APAP 5-325MG [Emmons 1 tab PO Q6H PRN 01/07/20 10/30/20 5-325] Metoprolol Tartrate [Lopressor] 100 mg PO BID 01/07/20 10/30/20 Tamsulosin [Flomax] 0.4 mg PO DAILY 01/07/20 10/30/20 traZODone HCL 50 mg PO HS PRN 01/07/20 10/30/20 Cyclobenzaprine [Flexeril] 10 mg PO DAILY PRN 06/03/20 10/30/20 Ergocalciferol [Vitamin D2 (1250 1,250 mcg PO Q30D 10/30/20 10/30/20 Mcg = 41483 Iu)] Naproxen 500 mg PO BID 10/30/20 10/30/20 Previous Rx's Medication Instructions Recorded Ferrous Sulfate [Iron (65 MG 325 mg PO DAILY #30 tab 06/07/19 Elemental)] Sucralfate [Carafate] 1 gm PO AC-TID #90 tablet 06/07/19 metFORMIN HCL [Glucophage] 500 mg PO AC-BID #60 tab 06/07/19 Pantoprazole [Protonix] 40 mg PO AC-BID #60 tablet.dr 11/02/20 hydrALAZINE HCL [Apresoline] 25 mg PO TID #90 tab 11/02/20 Allergies Allergy/AdvReac Type Severity Reaction Status Date / Time adhesive tape Allergy Rash/Hives Verified 03/02/21 12:43 latex Allergy Unknown Verified 03/02/21 12:43 egg AdvReac Nausea & Verified 03/02/21 12:43 Vomiting lisinopril AdvReac EYES Verified 03/02/21 12:43 BURN&ITCH/WEAKNESS tomato AdvReac Nausea & Verified 03/02/21 12:43 Vomiting & Diarrhea Review of Systems ROS Statement: Those systems with pertinent positive or pertinent negative responses have been documented in the HPI. ROS Other: All systems not noted in ROS Statement are negative. Past Medical History Past Medical History: Atrial Fibrillation, Chest Pain / Angina, COPD, CVA/TIA, Diabetes Mellitus, GERD/Reflux, GI Bleed, Hearing Disorder / Deafness, Hyperlipidemia, Hypertension, Liver Disease, Pneumonia, Prostate Disorder, Pulmonary Embolus (PE) Additional Past Medical History / Comment(s): GI bleed/ esophageal varicies banded. Other hx: Alcoholism, alcohol withdrawal DTs and possibly a seizure in 2018 r/t withdrawal, chronic alcoholic cirrhosis with portal hypertension and previous history of upper and lower GI bleeding, esophageal varices, previous history of childhood seizure which he outgrew not taking any antiepileptic medication, pulmonary embolism x 2 R lung, TIA, diverticulosis, chronic lower bilateral extremity ankle edema if he walks a lot, previous history of septicemia, cervical disc disease, chronic neck pain, chronic back pain with r sided sciatica, degenerative arthritis involving the lower back, scoliosis, tinnitus, vitamin D deficiency, iron anemia, chronic thrombocytopenia, denies MR FERNANDEZ, C-DIFF History of Any Multi-Drug Resistant Organisms: MRSA Date of last positivie culture/infection: 03/17/18 MDRO Source:: stomach Past Surgical History: Appendectomy, Cholecystectomy Additional Past Surgical History / Comment(s): EGDs/esophageal varicies banding s, colonoscopies. Past Anesthesia/Blood Transfusion Reactions: No Reported Reaction Additional Past Anesthesia/Blood Transfusion Reaction / Comment(s): after appendix removed sob Past Psychological History: Anxiety, Depression Smoking Status: Never smoker Past Alcohol Use History: Abuse, Daily, Heavy Past Drug Use History: None Reported - Past Family History Mother Family Medical History: COPD, CVA/TIA, Dementia Additional Family Medical History / Comment(s): from a stroke Father Family Medical History: Pneumonia Additional Family Medical History / Comment(s): Father of pneumonia when he was close to 80 yrs old. General Exam - General Exam Comments Initial Comments: This is a well-developed well-nourished awake alert 4 male Limitations: no limitations General appearance: alert, anxious Head exam: Present: atraumatic, normocephalic, normal inspection Eye exam: Present: normal appearance, PERRL, EOMI. Absent: scleral icterus, conjunctival injection, periorbital swelling ENT exam: Present: normal exam, mucous membranes moist Neck exam: Present: full ROM, other (No stridor JVD or bruits). Absent: tenderness, meningismus, lymphadenopathy Respiratory exam: Present: normal lung sounds bilaterally. Absent: respiratory distress, wheezes, rales, rhonchi, stridor Cardiovascular Exam: Present: tachycardia, irregular rhythm. Absent: systolic murmur, diastolic murmur, rubs, gallop, clicks GI/Abdominal exam: Present: soft, normal bowel sounds. Absent: distended, tenderness, guarding, rebound, rigid Extremities exam: Present: normal inspection, full ROM, normal capillary refill. Absent: tenderness, pedal edema, joint swelling, calf tenderness Back exam: Present: normal inspection Neurological exam: Present: alert, oriented X3, CN II-XII intact Psychiatric exam: Present: normal affect, normal mood Skin exam: Present: warm, dry, intact, normal color. Absent: rash Course Vital Signs 03/02/21 03/02/21 03/02/21 12:37 13:12 14:39 Temperature 98 F Pulse Rate 158 H 146 H 133 H Respiratory 18 18 18 Rate Blood Pressure 148/117 148/105 173/109 O2 Sat by Pulse 92 L 98 Oximetry Medical Decision Making - Medical Decision Making I did discuss findings with the patient and with Dr. Beck. Patient does appear to have converted from what appear to be A. fib RVR on Cardizem will remain on Cardizem for right now. IV fluids and alcohol withdrawal protocol. IV acidosis first be secondary to find depletion no infectious process ident ified at this time - Lab Data Result diagrams: 03/02/21 12:49 03/02/21 12:49 Lab Results 03/02/21 03/02/21 03/02/21 Range/Units 12:49 12:49 12:49 WBC 5.3 (3.8-10.6) k/uL RBC 5.20 (4.30-5.90) m/uL Hgb 17.6 H (13.0-17.5) gm/dL Hct 51.3 (39.0-53.0) % MCV 98.7 (80.0-100.0) fL MCH 33.9 (25.0-35.0) pg MCHC 34.4 (31.0-37.0) g/dL RDW 15.5 (11.5-15.5) % Plt Count 139 L (150-450) k/uL MPV 7.6 Neutrophils % 50 % Lymphocytes % 41 % Monocytes % 6 % Eosinophils % 1 % Basophils % 1 % Neutrophils # 2.7 (1.3-7.7) k/uL Lymphocytes # 2.2 (1.0-4.8) k/uL Monocytes # 0.3 (0-1.0) k/uL Eosinophils # 0.1 (0-0.7) k/uL Basophils # 0.0 (0-0.2) k/uL Macrocytosis Slight PT 11.6 (9.0-12.0) sec INR 1.1 (<1.2) APTT 23.4 (22.0-30.0) sec D-Dimer 1.21 H (<0.60) mg/L FEU Sodium 145 (137-145) mmol/L Potassium 4.2 (3.5-5.1) mmol/L Chloride 107 (98-107) mmol/L Carbon Dioxide 22 (22-30) mmol/L Anion Gap 16 mmol/L BUN 10 (9-20) mg/dL Creatinine 0.80 (0.66-1.25) mg/dL Est GFR (CKD-EPI)AfAm >90 (>60 ml/min/1.73 sqM) Est GFR (CKD-EPI)NonAf >90 (>60 ml/min/1.73 sqM) Glucose 177 H (74-99) mg/dL Plasma Lactic Acid Hitesh (0.7-2.0) mmol/L Calcium 9.1 (8.4-10.2) mg/dL Magnesium 1.6 (1.6-2.3) mg/dL Total Bilirubin 1.0 (0.2-1.3) mg/dL AST 118 H (17-59) U/L ALT 72 H (4-49) U/L Alkaline Phosphatase 157 H (38-126) U/L Troponin I (0.000-0.034) ng/mL NT-Pro-B Natriuret Pep pg/mL Total Protein 8.7 H (6.3-8.2) g/dL Albumin 4.4 (3.5-5.0) g/dL Lipase (23-300) U/L TSH 0.560 (0.465-4.680) mIU/L Serum Alcohol 217 H* mg/dL Influenza Type A (PCR) (Not Detectd) Influenza Type B (PCR) (Not Detectd) RSV (PCR) (Not Detectd) SARS-CoV-2 (PCR) (Not Detectd) 03/02/21 03/02/21 03/02/21 Range/Units 12:49 12:49 12:49 WBC (3.8-10.6) k/uL RBC (4.30-5.90) m/uL Hgb (13.0-17.5) gm/dL Hct (39.0-53.0) % MCV (80.0-100.0) fL MCH (25.0-35.0) pg MCHC (31.0-37.0) g/dL RDW (11.5-15.5) % Plt Count (150-450) k/uL MPV Neutrophils % % Lymphocytes % % Monocytes % % Eosinophils % % Basophils % % Neutrophils # (1.3-7.7) k/uL Lymphocytes # (1.0-4.8) k/uL Monocytes # (0-1.0) k/uL Eosinophils # (0-0.7) k/uL Basophils # (0-0.2) k/uL Macrocytosis PT (9.0-12.0) sec INR (<1.2) APTT (22.0-30.0) sec D-Dimer (<0.60) mg/L FEU Sodium (137-145) mmol/L Potassium (3.5-5.1) mmol/L Chloride (98-107) mmol/L Carbon Dioxide (22-30) mmol/L Anion Gap mmol/L BUN (9-20) mg/dL Creatinine (0.66-1.25) mg/dL Est GFR (CKD-EPI)AfAm (>60 ml/min/1.73 sqM) Est GFR (CKD-EPI)NonAf (>60 ml/min/1.73 sqM) Glucose (74-99) mg/dL Plasma Lactic Acid Hitesh 3.9 H* (0.7-2.0) mmol/L Calcium (8.4-10.2) mg/dL Magnesium (1.6-2.3) mg/dL Total Bilirubin (0.2-1.3) mg/dL AST (17-59) U/L ALT (4-49) U/L Alkaline Phosphatase (38-126) U/L Troponin I <0.012 (0.000-0.034) ng/mL NT-Pro-B Natriuret Pep 123 pg/mL Total Protein (6.3-8.2) g/dL Albumin (3.5-5.0) g/dL Lipase (23-300) U/L TSH (0.465-4.680) mIU/L Serum Alcohol mg/dL Influenza Type A (PCR) (Not Detectd) Influenza Type B (PCR) (Not Detectd) RSV (PCR) (Not Detectd) SARS-CoV-2 (PCR) (Not Detectd) 03/02/21 03/02/21 Range/Units 12:49 12:54 WBC (3.8-10.6) k/uL RBC (4.30-5.90) m/uL Hgb (13.0-17.5) gm/dL Hct (39.0-53.0) % MCV (80.0-100.0) fL MCH (25.0-35.0) pg MCHC (31.0-37.0) g/dL RDW (11.5-15.5) % Plt Count (150-450) k/uL MPV Neutrophils % % Lymphocytes % % Monocytes % % Eosinophils % % Basophils % % Neutrophils # (1.3-7.7) k/uL Lymphocytes # (1.0-4.8) k/uL Monocytes # (0-1.0) k/uL Eosinophils # (0-0.7) k/uL Basophils # (0-0.2) k/uL Macrocytosis PT (9.0-12.0) sec INR (<1.2) APTT (22.0-30.0) sec D-Dimer (<0.60) mg/L FEU Sodium (137-145) mmol/L Potassium (3.5-5.1) mmol/L Chloride (98-107) mmol/L Carbon Dioxide (22-30) mmol/L Anion Gap mmol/L BUN (9-20) mg/dL Creatinine (0.66-1.25) mg/dL Est GFR (CKD-EPI)AfAm (>60 ml/min/1.73 sqM) Est GFR (CKD-EPI)NonAf (>60 ml/min/1.73 sqM) Glucose (74-99) mg/dL Plasma Lactic Acid Hitesh (0.7-2.0) mmol/L Calcium (8.4-10.2) mg/dL Magnesium (1.6-2.3) mg/dL Total Bilirubin (0.2-1.3) mg/dL AST (17-59) U/L ALT (4-49) U/L Alkaline Phosphatase (38-126) U/L Troponin I (0.000-0.034) ng/mL NT-Pro-B Natriuret Pep pg/mL Total Protein (6.3-8.2) g/dL Albumin (3.5-5.0) g/dL Lipase 145 (23-300) U/L TSH (0.465-4.680) mIU/L Serum Alcohol mg/dL Influenza Type A (PCR) Not Detected (Not Detectd) Influenza Type B (PCR) Not Detected (Not Detectd) RSV (PCR) Not Detected (Not Detectd) SARS-CoV-2 (PCR) Not Detected (Not Detectd) - EKG Data -: EKG Interpreted by Me EKG Comments: Tachycardia rate 150 to QRS 64 QT since QTC 326/518 pulses criteria for LVH evidence of short AR interval. Interval 104 - Radiology Data Radiology results: report reviewed (Imaging reviewed as well as report evidence of COPD but no PE.), image reviewed Critical Care Time Critical Care Time: Yes Total Critical Care Time: 37 Critical Care Time: Critical care time includes initial presentation with history physical labs x- rays multiple reevaluation the patient responsive therapy review of old charting discussed with patient regarding findings discussed with the main physician admission orders documentation of the above Disposition Clinical Impression: Rapid atrial fibrillation, COPD with exacerbation, Dehydration, Lactic acidosis, Alcohol withdrawal Disposition: ADMITTED IP TO THIS HOSP Condition: Fair Referrals: Doug Beck MD [Primary Care Provider] - 1-2 days
[2021-03-02 13:07] LABS: Basophils % (A) 1 %; Eosinophils # (A) 0.1 k/uL (0-0.7); Eosinophils % (A) 1 %; HCT 51.3 % (39.0-53.0); HGB 17.6 gm/dL (13.0-17.5); Lymphocytes # (A) 2.2 k/uL (1.0-4.8); Lymphocytes % (A) 41 %; MCH 33.9 pg (25.0-35.0); MCHC 34.4 g/dL (31.0-37.0); MCV 98.7 fL (80.0-100.0); Macrocytosis Slight; Mean Platelet Volume 7.6; Monocytes # (A) 0.3 k/uL (0-1.0); Monocytes % (A) 6 %; Neutrophils # (A) 2.7 k/uL (1.3-7.7); Neutrophils % (A) 50 %; Platelet Count 139 k/uL (150-450); RDW 15.5 % (11.5-15.5); WBC 5.3 k/uL (3.8-10.6)
[2021-03-02 13:10] LABS: ALT 72 U/L (4-49); AST 118 U/L (17-59); African American GFR (CKD) >90 (>60 ml/min/1.73 sqM); Albumin 4.4 g/dL (3.5-5.0); Alkaline Phosphatase 157 U/L (38-126); Anion Gap 16 mmol/L; Blood Urea Nitrogen 10 mg/dL (9-20); Calcium 9.1 mg/dL (8.4-10.2); Carbon Dioxide 22 mmol/L (22-30); Chloride 107 mmol/L (98-107); Glucose 177 mg/dL (74-99); Magnesium 1.6 mg/dL (1.6-2.3); Non-African American GFR(CKD) >90 (>60 ml/min/1.73 sqM); Potassium 4.2 mmol/L (3.5-5.1); Sodium 145 mmol/L (137-145); Total Protein 8.7 g/dL (6.3-8.2)
--- NOTE | 2021-03-02 13:11 | XR ---
EXAMINATION TYPE: XR chest 2V DATE OF EXAM: 03/02/2021 COMPARISON: 10/30/2020 TECHNIQUE: PA and lateral views submitted. HISTORY: Difficulty breathing FINDINGS: The heart is stable and within normal limits. No pneumothorax. No sizable pleural effusion. Coarsened interstitium appears stable from prior exam. IMPRESSION: 1. Correlate for COPD and chronic interstitial lung disease similar to the prior exam. Difficult to e xclude a superimposed pneumonitis or early venous congestion.
[2021-03-02 13:23] LABS: INR 1.1 (<1.2); Partial Thromboplastin Time 23.4 sec (22.0-30.0); Prothrombin Time 11.6 sec (9.0-12.0)
[2021-03-02 13:27] LABS: Alcohol 217 mg/dL
[2021-03-02] MEDS ORDERED: SODIUM CHLORIDE 0.9% 1,000 ML IV STA (13:44)
--- NOTE | 2021-03-02 14:40 | CT ---
EXAMINATION TYPE: CT angio chest DATE OF EXAM: 03/02/2021 COMPARISON: 05/29/2019 HISTORY: cough, SOB, high BP, elevated d-dimer CT DLP: 454.2 mGycm Automated exposure control for dose reduction was used. CONTRAST: Performed with IV Contrast, patient injected with 77cc mL of Isovue 370. There are 3-D post processed images. There is no mediastinal adenopathy. Thoracic aorta is intact. There is no aneurysm or dissection. Asc ending aorta measures 3.5 cm. There are no hilar masses. Heart size is normal. There is no pericardia l effusion. There is interstitial infiltrates and subsegmental atelectasis in the lower lung guadalupe. There is no pleural effusion. There is normal contrast enhancement of the pulmonary arteries. There are no filling defects. Upper a bdominal soft tissues are intact. There are clips from cholecystectomy. There is anterior wedging of T3 vertebra 50% consistent with an old compression fracture. Unchanged. There is some spurring in the thoracic spine. Sternum is intact. IMPRESSION: No evidence of pulmonary embolism. Mild fibrotic changes in the mid and lower lung guadalupe. Lung disease not significantly different than old exam.
[2021-03-02] MEDS ORDERED: LORazepam 2 MG/ML INJ IV STA (14:47)
[2021-03-02] MEDS ORDERED: THIAMINE 100 MG/ML 2 ML VIAL IM STA (15:07)
[2021-03-02] MEDS ORDERED: LORazepam 2 MG/ML INJ IV PRN ×2 (15:07)
[2021-03-02] MEDS ORDERED: SODIUM CHLORIDE 0.9% 1,000 ML IV SCH (15:15)
[2021-03-02] MEDS: IPRATROPIUM-ALBUTEROL 3 ML NEB INHALATION PRN ×2 (15:33→19:34)
[2021-03-02 17:03] LABS: Glucose,Whole Blood 113 mg/dL (75-99)
[2021-03-02] MEDS: METOPROLOL SUCCINATE (ER) 100 MG TAB.ER.24H PO SCH (18:37)
[2021-03-02] MEDS: SODIUM CHLORIDE 0.9% 1,000 ML IV SCH (18:39)
[2021-03-02] MEDS ORDERED: ACETAMINOPHEN TAB 325 MG TAB PO PRN (18:50)
[2021-03-02 19:48] LABS: Glucose,Whole Blood 178 mg/dL (75-99)
[2021-03-02] MEDS: cloNIDine HCL 0.1 MG TAB PO SCH (20:33)
[2021-03-02] MEDS: APIXABAN 5 MG TAB PO SCH (20:33)
[2021-03-02] MEDS: LORazepam 2 MG/ML INJ IV PRN (20:38)
[2021-03-02] MEDS ORDERED: traMADol 50 MG TAB PO PRN (23:08)
[2021-03-03] MEDS: SODIUM CHLORIDE 0.9% 1,000 ML IV SCH ×2 (02:43→17:34)
[2021-03-03 05:45] LABS: Glucose,Whole Blood 115 mg/dL (75-99)
[2021-03-03] MEDS: THIAMINE 100 MG TAB PO SCH ×2 (06:12→17:34)
[2021-03-03] MEDS: PANTOPRAZOLE 40 MG TABLET PO SCH (06:12)
[2021-03-03] MEDS: IPRATROPIUM-ALBUTEROL 3 ML NEB INHALATION PRN ×3 (07:47→15:56)
[2021-03-03] MEDS: DOXAZOSIN 1 MG TAB PO SCH (09:30)
[2021-03-03] MEDS: APIXABAN 5 MG TAB PO SCH ×2 (09:30→21:40)
[2021-03-03] MEDS: METOPROLOL SUCCINATE (ER) 100 MG TAB.ER.24H PO SCH (09:30)
[2021-03-03] MEDS: cloNIDine HCL 0.1 MG TAB PO SCH ×3 (09:30→21:40)
[2021-03-03] MEDS: FOLIC ACID 1 MG TAB PO SCH (09:30)
[2021-03-03] MEDS: DILTIAZEM ORAL 30 MG TAB PO SCH ×2 (09:30→21:40)
[2021-03-03] MEDS: FERROUS SULFATE 325 MG TAB PO SCH (09:31)
[2021-03-03] MEDS: TAMSULOSIN 0.4 MG CAP.ER.24H PO SCH (09:31)
[2021-03-03] MEDS: LORazepam 2 MG/ML INJ IV PRN ×2 (09:38→19:58)
[2021-03-03 11:43] LABS: Glucose,Whole Blood 142 mg/dL (75-99)
[2021-03-03 16:41] LABS: Glucose,Whole Blood 197 mg/dL (75-99)
[2021-03-03 20:03] LABS: Glucose,Whole Blood 141 mg/dL (75-99)
[2021-03-04] MEDS: LORazepam 2 MG/ML INJ IV PRN (03:35)
[2021-03-04] MEDS: SODIUM CHLORIDE 0.9% 1,000 ML IV SCH (04:52)
[2021-03-04] MEDS: PANTOPRAZOLE 40 MG TABLET PO SCH (06:10)
[2021-03-04] MEDS: THIAMINE 100 MG TAB PO SCH (06:10)
[2021-03-04 06:18] LABS: Glucose,Whole Blood 126 mg/dL (75-99)
[2021-03-04] MEDS: IPRATROPIUM-ALBUTEROL 3 ML NEB INHALATION PRN ×2 (08:17→15:10)
[2021-03-04] MEDS: APIXABAN 5 MG TAB PO SCH (09:19)
[2021-03-04] MEDS: cloNIDine HCL 0.1 MG TAB PO SCH ×2 (09:19→15:45)
[2021-03-04] MEDS: FERROUS SULFATE 325 MG TAB PO SCH (09:19)
[2021-03-04] MEDS: FOLIC ACID 1 MG TAB PO SCH (09:19)
[2021-03-04] MEDS: DILTIAZEM ORAL 30 MG TAB PO SCH (09:19)
[2021-03-04] MEDS: DOXAZOSIN 1 MG TAB PO SCH (09:19)
[2021-03-04] MEDS: TAMSULOSIN 0.4 MG CAP.ER.24H PO SCH (09:19)
[2021-03-04] MEDS: METOPROLOL SUCCINATE (ER) 100 MG TAB.ER.24H PO SCH (09:20)
[2021-03-04 11:50] LABS: Glucose,Whole Blood 188 mg/dL (75-99)
--- NOTE | 2021-03-04 12:06 | HP ---
HISTORY AND PHYSICAL CHIEF COMPLAINT: Chest pain. HISTORY OF PRESENT ILLNESS: This is another admission for this 65-year-old white male with a history of hypertension, alcoholism. He came to emergency room intoxicated complaining of chest pain. He was in atrial fibrillation with ventricular rate of 130. Enzymes are normal. He was admitted. REVIEW OF SYSTEMS: He denies headaches, neurologic problems, shortness of breath, cough, hemoptysis, abdominal pain, nausea, vomiting, diarrhea, melena, hematochezia, dysuria, frequency, urgency, etc. Past medical history, family history and personal and social histories are otherwise noncontributory and unremarkable. There was difficulty managing his hypertension and he is on numerous medications. PHYSICAL EXAMINATION: Blood pressure is 140/92 with a pulse of 130. Respirations were 34. He is afebrile. In general, he appeared to be slightly lethargic. He was intoxicated. Head, ears, eyes, nose, mouth and throat were normal. Chest is clear. Cardiac exam demonstrates tachycardia. The abdomen is protuberant, soft and nontender without any visceromegaly or masses. Bowel sounds present. Extremities are intact. IMPRESSION: He was admitted to the hospital with diagnoses of: 1. Chest pain. 2. New onset atrial fibrillation with rapid ventricular response. 3. Acute alcohol intoxication. 4. History of hypertension. PLAN: 1. Bedrest. 2. IV fluids. 3. Cardizem drip. 4. Control hypertension. 5. Watch for DTs. MMODL / RENAEN: [id number] /
--- NOTE | 2021-03-04 12:18 | PN ---
PROGRESS NOTE 03/04/2021 CHIEF COMPLAINT: Acute alcohol intoxication, and atrial fibrillation. HISTORY OF PRESENT ILLNESS: This gentleman is doing well. He has had no further chest pain. He continues in sinus rhythm. PHYSICAL EXAMINATION: Chest is clear. Cardiac exam is normal. Abdomen is soft, nontender. IMPRESSION: 1. Acute alcohol intoxication. 2. Hypertension. 3. Atrial fibrillation. PLAN: Increase activity and possibly home today. MMODL / IJN: [id number] /
[2021-03-04] MEDS ORDERED: ONDANSETRON 4 MG/2 ML VIAL IVP PRN (12:37)
[2021-03-04 13:20] VITALS: TEMP 97.9
[2021-03-04 15:22] VITALS: PULSE 82
[2021-03-04 16:08] VITALS: BP 140/92; RESP 17
--- NOTE | 2021-03-04 16:39 | PN ---
PROGRESS NOTE DATE OF SERVICE: 03/03/2021 CHIEF COMPLAINT: Acute alcohol intoxication, atrial fibrillation with RVR. HISTORY OF PRESENT ILLNESS: This gentleman is converted to sinus rhythm. He is not in DTs. He is complaining a little bit of nausea. PHYSICAL EXAM: Head ears, eyes, nose, mouth are normal. Chest is clear. Cardiac exam demonstrates normal sinus rhythm with no murmurs. Abdomen is soft and nontender. IMPRESSION: 1. Acute alcohol intoxication. 2. Hypertension. 3. Atrial fibrillation with RVR. PLAN: Start to progress activity and he will be started on apixaban. MMODL / IJN: [id number] /
--- NOTE | 2021-03-04 17:27 | DS ---
DISCHARGE SUMMARY DATE OF SERVICE: 03/04/2021 CHIEF COMPLAINT: Acute alcohol intoxication, shortness of breath, chest pain, and tachycardia. HISTORY OF PRESENT ILLNESS AND PHYSICAL EXAMINATION: Details of this man's history and physical can be found in the initial workup. LABORATORY STUDIES: While he was in the hospital he had laboratory studies, details of which can be found in the laboratory section of his chart. COURSE IN THE HOSPITAL: After admission, he was placed on bedrest, started on Cardizem drip and he converted to sinus rhythm with tachycardia of around 110 beats per minute. Cardizem drip was continued until his pulse dropped below 100. He did not go into DTs. He stayed in sinus rhythm and his activity was increased and he was doing well and stable enough to go home on the . He will go home on his usual activity, diet and medication and be on additional medications with Cardizem and apixaban. FINAL DIAGNOSES: 1. Acute onset of atrial fibrillation with rapid ventricular response. 2. Acute alcohol intoxication. 3. Hypertension. OPERATIONS: None. CONSULTATIONS: None. He is improved. MMODL / IJN: [id number] /
== END 2021-03-04 16:40 | disposition home or self-care (01) | DRG 309 ==
LOC: EC 12:34 → 3SCARD 15:06
PROVIDERS: ADMIT Family Medicine; ATTEND Family Medicine
DX: I48.91 Unspecified atrial fibrillation (principal); E87.2 Acidosis; Z20.822 Contact with and (suspected) exposure to COVID-19; E11.9 Type 2 diabetes mellitus without complications; E78.5 Hyperlipidemia, unspecified; M54.31 Sciatica, right side; G89.29 Other chronic pain; E86.0 Dehydration; F10.229 Alcohol dependence with intoxication, unspecified; Y90.7 Blood alcohol level of 200-239 mg/100 ml; M54.2 Cervicalgia; M41.9 Scoliosis, unspecified; D69.6 Thrombocytopenia, unspecified; E55.9 Vitamin D deficiency, unspecified; H91.90 Unspecified hearing loss, unspecified ear; I10 Essential (primary) hypertension; Z86.711 Personal history of pulmonary embolism; Z86.73 Personal history of transient ischemic attack (TIA), and cerebral infarction without residual deficits; Z86.14 Personal history of Methicillin resistant Staphylococcus aureus infection; Z82.5 Family history of asthma and other chronic lower respiratory diseases; Z82.3 Family history of stroke
CPT/HCPCS: 36415; 71046; 71275; 80053; 80320; 83605; 83690; 83735; 83880; 84443; 84484; 85025; 85379; 85610; 85730; 87636; 93005; 94640; 94760; 96365; 96366; 96372; 96374; 96375; 99291

== ENCOUNTER 2021-04-01 13:59 | Observation (INO) | payer MEDICARE, OTHER ==
[2021-04-01] MEDS ORDERED: NITROGLYCERIN OINT 1 INCH/GM PACKET TOPICAL STA (14:21)
[2021-04-01] MEDS ORDERED: ASPIRIN 81 MG PO STA (14:21)
--- NOTE | 2021-04-01 14:34 | ED ---
General Adult HPI - General Chief complaint: Chest Pain Stated complaint: Chest pain Time Seen by Provider: 04/01/21 14:11 Source: patient, EMS, RN notes reviewed Mode of arrival: EMS Limitations: physical limitation - History of Present Illness Initial comments: Patient is a pleasant [age]-year-old male presenting to the emergency Department with complaints of chest discomfort. Onset of symptoms was around a week ago. Discomfort feels somewhat sharp. Patient does have history of previous pulmonary embolism diagnosed just over a month ago with similar findings. Patient was placed on blood thinners, Eliquis. Patient has been a little bit sweaty and a little bit nauseated. No vomiting. No dyspnea. Otherwise no history of similar symptoms previously. No leg pain or leg swelling. Discomfort has a moderate and persistent. No radiation. - Related Data Home Medications Medication Instructions Recorded Confirmed Folic Acid 1 mg PO DAILY 01/07/20 04/01/21 Tamsulosin [Flomax] 0.4 mg PO DAILY 01/07/20 04/01/21 traZODone HCL 50 mg PO HS PRN 01/07/20 04/01/21 Cyclobenzaprine [Flexeril] 10 mg PO TID PRN 06/03/20 04/01/21 Ergocalciferol [Vitamin D2 (1250 1,250 mcg PO Q30D 10/30/20 04/01/21 Mcg = 87839 Iu)] Naproxen 500 mg PO BID PRN 10/30/20 04/01/21 Doxazosin [Cardura] 1 mg PO DAILY 03/02/21 04/01/21 Omeprazole 20 mg PO DAILY 03/02/21 04/01/21 Potassium Chloride ER [K-Dur 20] 20 meq PO BID 03/02/21 04/01/21 cloNIDine HCL [Catapres] 0.3 mg PO TID 03/02/21 04/01/21 HYDROcodone/APAP 5-325MG [[place] 1 tab PO Q6H PRN 04/01/21 04/01/21 5-325] Previous Rx's Medication Instructions Recorded Ferrous Sulfate [Iron (65 MG 325 mg PO DAILY #30 tab 06/07/19 Elemental)] Sucralfate [Carafate] 1 gm PO AC-TID #90 tablet 06/07/19 Apixaban [Eliquis] 5 mg PO BID #60 tab 03/04/21 Diltiazem Oral [Cardizem*] 30 mg PO BID #60 tab 03/04/21 Metoprolol Succinate (ER) [Toprol 100 mg PO DAILY #30 tablet 03/04/21 XL] Thiamine [Vitamin B-1] 100 mg PO BID-W/MEALS #60 tab 03/04/21 Allergies Allergy/AdvReac Type Severity Reaction Status Date / Time adhesive tape Allergy Rash/Hives Verified 04/01/21 15:53 latex Allergy Unknown Verified 04/01/21 15:53 egg AdvReac Nausea & Verified 04/01/21 15:53 Vomiting lisinopril AdvReac EYES Verified 04/01/21 15:53 BURN&ITCH/WEAKNESS tomato AdvReac Nausea & Verified 04/01/21 15:53 Vomiting & Diarrhea Review of Systems ROS Statement: Those systems with pertinent positive or pertinent negative responses have been documented in the HPI. ROS Other: All systems not noted in ROS Statement are negative. Constitutional: Denies: fever Eyes: Denies: eye pain ENT: Denies: ear pain Respiratory: Denies: cough Cardiovascular: Reports: as per HPI, chest pain Endocrine: Denies: fatigue Gastrointestinal: Reports: nausea. Denies: abdominal pain, vomiting Genitourinary: Denies: dysuria Musculoskeletal: Denies: back pain Skin: Denies: rash Neurological: Denies: weakness Past Medical History Past Medical History: Atrial Fibrillation, Chest Pain / Angina, COPD, CVA/TIA, Diabetes Mellitus, GERD/Reflux, GI Bleed, Hearing Disorder / Deafness, Hyperlipidemia, Hypertension, Liver Disease, Pneumonia, Prostate Disorder, Pulmonary Embolus (PE) Additional Past Medical History / Comment(s): GI bleed/ esophageal varicies banded. Other hx: Alcoholism, alcohol withdrawal DTs and possibly a seizure in 2018 r/t withdrawal, chronic alcoholic cirrhosis with portal hypertension and previous history of upper and lower GI bleeding, esophageal varices, previous history of childhood seizure which he outgrew not taking any antiepileptic medication, pulmonary embolism x 2 R lung, TIA, diverticulosis, chronic lower bilateral extremity ankle edema if he walks a lot, previous history of septicemia, cervical disc disease, chronic neck pain, chronic back pain with r sided sciatica, degenerative arthritis involving the lower back, scoliosis, tinnitus, vitamin D deficiency, iron anemia, chronic thrombocytopenia, denies MRSA, C-DIFF 4-2018 History of Any Multi-Drug Resistant Organisms: MRSA Date of last positivie culture/infection: 03/17/18 MDRO Source:: stomach Past Surgical History: Appendectomy, Cholecystectomy Additional Past Surgical History / Comment(s): EGDs/esophageal varicies bandings, colonoscopies. Past Anesthesia/Blood Transfusion Reactions: No Reported Reaction Additional Past Anesthesia/Blood Transfusion Reaction / Comment(s): after append ix removed sob Past Psychological History: Anxiety, Depression Smoking Status: Never smoker Past Alcohol Use History: Abuse, Daily, Heavy Past Drug Use History: None Reported - Past Family History Mother Family Medical History: COPD, CVA/TIA, Dementia Additional Family Medical History / Comment(s): from a stroke Father Family Medical History: Pneumonia Additional Family Medical History / Comment(s): Father of pneumonia when he was close to 80 yrs old. General Exam Limitations: physical limitation General appearance: alert, in no apparent distress Head exam: Present: normocephalic Eye exam: Present: normal appearance Neck exam: Present: normal inspection Respiratory exam: Present: normal lung sounds bilaterally. Absent: chest wall tenderness Cardiovascular Exam: Present: regular rate, normal rhythm Expanded Peripheral pulses: 2+: Radial (R), Radial (L), Posterior Tibialis (R), Posterior Tibialis (L) GI/Abdominal exam: Present: soft. Absent: tenderness Extremities exam: Present: normal inspection. Absent: pedal edema, calf tenderness Neurological exam: Present: alert Psychiatric exam: Present: normal affect, normal mood Skin exam: Present: normal color Course Vital Signs 04/01/21 04/01/21 04/01/21 14:23 14:28 15:28 Temperature 98.2 F Pulse Rate 86 79 77 Respiratory 18 18 18 Rate Blood Pressure 192/113 190/104 182/113 O2 Sat by Pulse 94 L 95 96 Oximetry 04/01/21 04/01/21 04/01/21 16:05 16:16 16:29 Temperature Pulse Rate 79 84 86 Respiratory 18 18 18 Rate Blood Pressure 168/120 181/115 162/86 O2 Sat by Pulse 98 95 98 Oximetry EKG Findings - EKG Comments: EKG Findings:: Normal sinus rhythm with a rate of 81. ID 162. QRS 72. QT 394. QTC 457. Left axis. LVH. No acute ST change. Medical Decision Making - Medical Decision Making Patient reevaluated. Symptoms have improved somewhat. Blood pressure had improved with nitro however is starting to increase. Patient updated on results and plan. Case was discussed with Dr. Beck who is familiar with this patient and will admit. - Lab Data Result diagrams: 04/01/21 14:54 04/01/21 14:54 Lab Results 04/01/21 04/01/21 04/01/21 Range/Units 14:54 14:54 14:54 WBC 4.4 (3.8-10.6) k/uL RBC 4.65 (4.30-5.90) m/uL Hgb 15.1 (13.0-17.5) gm/dL Hct 44.3 (39.0-53.0) % MCV 95.1 (80.0-100.0) fL MCH 32.5 (25.0-35.0) pg MCHC 34.2 (31.0-37.0) g/dL RDW 14.5 (11.5-15.5) % Plt Count 90 L (150-450) k/uL MPV 8.0 Neutrophils % 60 % Lymphocytes % 29 % Monocytes % 7 % Eosinophils % 2 % Basophils % 1 % Neutrophils # 2.6 (1.3-7.7) k/uL Lymphocytes # 1.3 (1.0-4.8) k/uL Monocytes # 0.3 (0-1.0) k/uL Eosinophils # 0.1 (0-0.7) k/uL Basophils # 0.0 (0-0.2) k/uL PT 12.6 H (9.0-12.0) sec INR 1.2 H (<1.2) APTT 26.0 (22.0-30.0) sec Sodium 138 (137-145) mmol/L Potassium 4.1 (3.5-5.1) mmol/L Chloride 101 (98-107) mmol/L Carbon Dioxide 27 (22-30) mmol/L Anion Gap 10 mmol/L BUN 15 (9-20) mg/dL Creatinine 0.99 (0.66-1.25) mg/dL Est GFR (CKD-EPI)AfAm >90 (>60 ml/min/1.73 sqM) Est GFR (CKD-EPI)NonAf 80 (>60 ml/min/1.73 sqM) Glucose 143 H (74-99) mg/dL Calcium 9.4 (8.4-10.2) mg/dL Magnesium 1.3 L (1.6-2.3) mg/dL Total Bilirubin 1.3 (0.2-1.3) mg/dL AST 101 H (17-59) U/L ALT 52 H (4-49) U/L Alkaline Phosphatase 107 (38-126) U/L Troponin I (0.000-0.034) ng/mL NT-Pro-B Natriuret Pep pg/mL Total Protein 8.3 H (6.3-8.2) g/dL Albumin 4.3 (3.5-5.0) g/dL Serum Alcohol 20 mg/dL 04/01/21 04/01/21 Range/Units 14:54 14:54 WBC (3.8-10.6) k/uL RBC (4.30-5.90) m/uL Hgb (13.0-17.5) gm/dL Hct (39.0-53.0) % MCV (80.0-100.0) fL MCH (25.0-35.0) pg MCHC (31.0-37.0) g/dL RDW (11.5-15.5) % Plt Count (150-450) k/uL MPV Neutrophils % % Lymphocytes % % Monocytes % % Eosinophils % % Basophils % % Neutrophils # (1.3-7.7) k/uL Lymphocytes # (1.0-4.8) k/uL Monocytes # (0-1.0) k/uL Eosinophils # (0-0.7) k/uL Basophils # (0-0.2) k/uL PT (9.0-12.0) sec INR (<1.2) APTT (22.0-30.0) sec Sodium (137-145) mmol/L Potassium (3.5-5.1) mmol/L Chloride (98-107) mmol/L Carbon Dioxide (22-30) mmol/L Anion Gap mmol/L BUN (9-20) mg/dL Creatinine (0.66-1.25) mg/dL Est GFR (CKD-EPI)AfAm (>60 ml/min/1.73 sqM) Est GFR (CKD-EPI)NonAf (>60 ml/min/1.73 sqM) Glucose (74-99) mg/dL Calcium (8.4-10.2) mg/dL Magnesium (1.6-2.3) mg/dL Total Bilirubin (0.2-1.3) mg/dL AST (17-59) U/L ALT (4-49) U/L Alkaline Phosphatase (38-126) U/L Troponin I <0.012 (0.000-0.034) ng/mL NT-Pro-B Natriuret Pep 186 pg/mL Total Protein (6.3-8.2) g/dL Albumin (3.5-5.0) g/dL Serum Alcohol mg/dL - Radiology Data Radiology results: report reviewed (Chest x-ray shows no acute process. CT ch est shows COPD. No central pulmonary embolism. Limited off the upper branch evaluation. Chronic interstitial lung disease. Lobular pattern margins of liver.), image reviewed Disposition Clinical Impression: Chest pain Disposition: ADMITTED IP TO THIS HOSP Is patient prescribed a controlled substance at d/c from ED?: No Referrals: Doug Beck MD [Primary Care Provider] - 1-2 days Decision Time: 17:16
[2021-04-01 15:23] LABS: Basophils % (A) 1 %; Eosinophils # (A) 0.1 k/uL (0-0.7); Eosinophils % (A) 2 %; HCT 44.3 % (39.0-53.0); HGB 15.1 gm/dL (13.0-17.5); INR 1.2 (<1.2); Lymphocytes # (A) 1.3 k/uL (1.0-4.8); Lymphocytes % (A) 29 %; MCH 32.5 pg (25.0-35.0); MCHC 34.2 g/dL (31.0-37.0); MCV 95.1 fL (80.0-100.0); Monocytes # (A) 0.3 k/uL (0-1.0); Monocytes % (A) 7 %; Neutrophils # (A) 2.6 k/uL (1.3-7.7); Neutrophils % (A) 60 %; Prothrombin Time 12.6 sec (9.0-12.0); RBC 4.65 m/uL (4.30-5.90); RDW 14.5 % (11.5-15.5); WBC 4.4 k/uL (3.8-10.6)
[2021-04-01 15:24] LABS: ALT 52 U/L (4-49); AST 101 U/L (17-59); African American GFR (CKD) >90 (>60 ml/min/1.73 sqM); Albumin 4.3 g/dL (3.5-5.0); Alcohol 20 mg/dL; Alkaline Phosphatase 107 U/L (38-126); Anion Gap 10 mmol/L; Blood Urea Nitrogen 15 mg/dL (9-20); Calcium 9.4 mg/dL (8.4-10.2); Carbon Dioxide 27 mmol/L (22-30); Chloride 101 mmol/L (98-107); Glucose 143 mg/dL (74-99); Magnesium 1.3 mg/dL (1.6-2.3); Non-African American GFR(CKD) 80 (>60 ml/min/1.73 sqM); Potassium 4.1 mmol/L (3.5-5.1); Sodium 138 mmol/L (137-145); Total Bilirubin 1.3 mg/dL (0.2-1.3); Total Protein 8.3 g/dL (6.3-8.2)
[2021-04-01 15:25] LABS: Platelet Count 90 k/uL (150-450)
--- NOTE | 2021-04-01 15:32 | XR ---
EXAMINATION TYPE: XR chest 2V DATE OF EXAM: 04/01/2021 COMPARISON: Chest x-ray 03/02/2021 HISTORY: Chest pain and nausea TECHNIQUE: Frontal and lateral views of the chest are obtained. FINDINGS: Patient is rotated. There is no focal air space opacity, pleural effusion, or pneumothorax seen. The cardiac silhouette size is likely stable. The aorta is dense and likely ectatic. There is thoracic spondylosis. The osseous structures are intact. IMPRESSION: No acute cardiopulmonary process.
[2021-04-01] MEDS: NITROGLYCERIN SL TABS 0.4 MG TAB SUBLINGUAL PRN ×4 (16:15→16:29)
[2021-04-01] MEDS ORDERED: ONDANSETRON 4 MG/2 ML VIAL IVP STA (16:22)
[2021-04-01] MEDS ORDERED: MAG HYDROX/AL HYDROX/SIMETH 30 ML, HYOSCYAMINE ELIXIR 10 ML, LIDOCAINE VISCOUS 2% 10 ML PO STA ×3 (16:30)
--- NOTE | 2021-04-01 16:34 | CT ---
EXAMINATION TYPE: CT angio chest DATE OF EXAM: 04/01/2021 4:17 PM COMPARISON: 03/02/2020 1. HISTORY: chest pain CT DLP: 454.4 mGycm Automated exposure control for dose reduction was used. CONTRAST: CTA scan of the thorax is performed with IV Contrast, patient injected with 100 mL of Isovue 370, pul monary embolism protocol. . FINDINGS: LUNGS: Diffuse emphysematous changes are seen and there are subsegmental areas of consolidation which is nonspecific. No pleural effusion or pneumothorax. No focal pneumonia. Interlobular septal thicken ing suggest chronic pulmonary fibrosis. Subpleural calcified nodule left upper lobe. Bronchiectasis. MEDIASTINUM: There is reduced enhancement of the distal left upper lobe pulmonary arterial branch. No central pulmonary edema most in. However a distal left upper lobe pulmonary embolus heart size is pr ominent.. There are no greater than 1 cm hilar or mediastinal lymph nodes. No pericardial effusion is seen. OTHER: Hypertrophic and degenerative changes of the spine. There is a hiatal hernia. Somewhat lobula r contour to the liver. Splenic granuloma incidentally noted. IMPRESSION: 1. COPD with no central pulmonary embolism however, there is reduced enhancement of the left upper lo be distal branch. Exam is limited by artifact this could be artifactual although a tiny distal branch pulmonary embolism cannot be excluded. Correlate clinically. 2. Correlate for chronic interstitial lung disease and evidence of basilar bronchiectasis. Somewhat l obular pattern margins of the liver can be associated with liver disease correlate with liver functio n studies.
[2021-04-01] MEDS ORDERED: LABETALOL SYRINGE 5 MG/ML IVP STA (17:17)
[2021-04-01] MEDS ORDERED: traZODone HCL 50 MG TAB PO PRN (17:19)
[2021-04-01] MEDS: THIAMINE 100 MG TAB PO SCH (18:58)
[2021-04-01] MEDS: cloNIDine HCL 0.1 MG TAB PO SCH (18:58)
[2021-04-01] MEDS: NITROGLYCERIN OINT 1 INCH/GM PACKET TOPICAL SCH (18:59)
--- NOTE | 2021-04-01 20:36 | HP ---
HISTORY AND PHYSICAL DATE OF SERVICE: 04/01/2021 CHIEF COMPLAINT: Chest pain. HISTORY OF PRESENT ILLNESS: This is another admission of many for this gentleman who is a chronic alcoholic. He also has uncontrolled hypertension. Despite increasing the dosage of his numerous medications, he usually comes in the office with hypertension. It is suspected that he does not take all the medications and he drinks heavily. He called the office on the day of admission that he was going to emergency room with chest pain. He arrived there with unremarkable EKG and normal enzymes, but his blood pressure systolically was up around 180 and he did have an elevated alcohol blood level. He was short of breath. He had no neurologic signs or symptoms. REVIEW OF SYSTEMS: He denies any change in vision or hearing. He does have headache. He is slightly short of breath and he has substernal pressure. He does have a history of coronary artery disease and also pulmonary emboli. He has had no abdominal pain, nausea, vomiting, hematemesis, melena, hematochezia, jaundice, renal failure, etc. Past medical history, family history and personal and social histories are all otherwise unremarkable and noncontributory or unchanged. PHYSICAL EXAMINATION: Blood pressure is 181/95 with a pulse of 94, respirations of 36, and he is afebrile. In general he appeared to be flushed, but in no acute distress. Skin color is otherwise normal. Lymph nodes not enlarged. Head, ears, eyes, nose, mouth and throat were normal. Chest is clear. There are occasional rales. Cardiac exam demonstrates sinus tachycardia with no murmurs or extra sounds. The abdomen is soft, nontender without visceromegaly or masses. Bowel sounds present. Extremities normal. Neurologically he is intact. IMPRESSION: He is admitted to the hospital with diagnoses: 1. Chest pain. 2. History of coronary artery disease. 3. History of pulmonary emboli. 4. Uncontrolled hypertension. 5. Alcoholism. PLAN: 1. Bedrest. 2. IV fluids. 3. Close monitoring of his vital signs and control hypertension as needed. 4. Serial EKGs and enzymes. 5. Cardiology consult. MMODL / IJN: [id number] /
[2021-04-01] MEDS ORDERED: METOPROLOL TARTRATE 25 MG TAB PO SCH (21:00)
[2021-04-01] MEDS: APIXABAN 5 MG TAB PO SCH (21:58)
[2021-04-01] MEDS: DILTIAZEM ORAL 30 MG TAB PO SCH (21:59)
[2021-04-02] MEDS: cloNIDine HCL 0.1 MG TAB PO SCH ×3 (00:09→16:02)
[2021-04-02] MEDS: MAGNESIUM OXIDE 400 MG TAB PO SCH ×3 (00:21→21:04)
[2021-04-02] MEDS: NITROGLYCERIN OINT 1 INCH/GM PACKET TOPICAL SCH ×4 (02:15→17:35)
[2021-04-02] MEDS: ACETAMINOPHEN TAB 325 MG TAB PO PRN ×3 (02:40→17:28)
[2021-04-02] MEDS: ONDANSETRON 4 MG/2 ML VIAL IVP PRN ×2 (02:41→09:40)
[2021-04-02] MEDS: NITROGLYCERIN SL TABS 0.4 MG TAB SUBLINGUAL PRN ×2 (05:32→05:38)
[2021-04-02 08:29] LABS: Glucose,Whole Blood 127 mg/dL (75-99)
[2021-04-02] MEDS ORDERED: DOXAZOSIN 1 MG TAB PO SCH (09:00)
[2021-04-02] MEDS ORDERED: ASPIRIN 325 MG TAB PO SCH (09:00)
[2021-04-02] MEDS: APIXABAN 5 MG TAB PO SCH ×2 (09:40→21:04)
[2021-04-02] MEDS: ASPIRIN 81 MG PO SCH (09:41)
[2021-04-02] MEDS: THIAMINE 100 MG TAB PO SCH ×2 (09:41→17:16)
[2021-04-02] MEDS: PANTOPRAZOLE 40 MG TABLET PO SCH (09:41)
--- NOTE | 2021-04-02 09:41 | P.CRDCN ---
History of Present Illness Consult date: 04/02/21 History of present illness: HISTORY OF PRESENT ILLNESS: This is a 65-year-old male with a past medical history significant for alcohol abuse with recent relapse, diabetes, COPD, TIA, and newly diagnosed atrial fibrillation a few weeks ago per patient. Patient does not follow with a navy diver. We have been asked to see the patient in consultation for chest pain. Patient examined at the bedside. Patient presented to the emergency room with a chief complaint of chest pain and generalized malaise. Patient states about a week ago he began coughing and has had a pretty constant cough since then. He also reports persistent nausea. He denies vomiting. He reports feel "lousy" Patient states the chest pain has been present for about a week. He is having a hard time describing the pain when asked and is unable to give an exact description of the pain such as if it is dull or sharp. He states the pain is worse when he is up ambulating. He states his chest wall does not hurt when it is palpated. He states the pain is 10 out of 10 this morning with movement. Patient received nitro overnight which he states helped ease the pain. He also reports having some fluttering in his heart occasionally. The patient did have a dobutamine stress test in November 2017. The patient states in the past he had a stress test and had a seizure from it but he is unsure of when this was. EKG reveals sinus mechanism with no signs of acute ischemia Chest xray negative for acute process. Laboratory data: WBC 4.4. Hemoglobin 15.1. Platelet count 90. Sodium 138. Potassium 4.1. BUN 15. Creatinine 0.99. ProBNP 186. Troponin negative 3. Serum alcohol 20. Dubois virus negative. Most recent echocardiogram obtained in 2019 revealed ejection fraction greater than 55%. Mild mitral regurgitation. Mild tricuspid regurgitation. Patient underwent a between stress test in November 2017 which was negative for ischemia REVIEW OF SYSTEMS: At the time of my exam: CONSTITUTIONAL: Denies fever or chills. Reports generalized malaise HEENT: Denies blurred vision, vision changes, or eye pain. Denies hemoptysis CARDIOVASCULAR: Reports chest pain. Denies orthopnea. Denies PND. Denies palpitations RESPIRATORY: Denies shortness of breath. Reports cough. GASTROINTESTINAL: Denies abdominal pain. Denies nausea or vomiting. HEMATOLOGIC: Denies bleeding disorders. GENITOURINARY: Denies any blood in urine. SKIN: Denies pruitis. Denies rash. PHYSICAL EXAM: VITAL SIGNS: Reviewed. GENERAL: Well-developed in no acute distress. HEENT: Head is normocephalic. Pupils are equal, round. Sclerae anicteric. Mucous membranes of the mouth are moist. Neck supple. No JVD or thyromegaly LUNGS: Respirations even and unlabored. Lungs diminished to auscultation bilaterally. Frequent coughing noted. HEART: Regular rate and rhythm. S1 and S2 heard. ABDOMEN: Soft. Nondistended. Nontender. EXTREMITIES: Normal range of motion. No clubbing or cyanosis. Peripheral pulses intact. No lower extremity edema NEUROLOGIC: Awake and alert. Oriented x 3. ASSESSMENT: Chest pain, atypical, troponin negative x 3 Cough, nausea, and generalized malaise 1 week Paroxysmal atrial fibrillation, diagnosed a few weeks ago by his PCP per patient COPD TIA Diabetes History of alcohol abuse with recent relapse 2 weeks ago PLAN: An acute coronary event has been ruled out Resume home cardiac medications Patient was given breakfast this morning, despite speaking with the nursing staff to keep the patient NPO until results of Covid test were finalized. Patient was to be scheduled for Lexiscan pending covid results as he reports inability to tolerate other types of stress tests and states he has had a seizure in the past from them. The patients covid test came back negative. However he was given breakfast by the hospital staff. Amy scan will be rescheduled for tomorrow NPO at midnight Further recommendations pending patient course Nurse practitioner note has been reviewed by physician. Signing provider agrees with the documented findings, assessment, and plan of care. Past Medical History Past Medical History: Atrial Fibrillation, Chest Pain / Angina, COPD, CVA/TIA, Diabetes Mellitus, GERD/Reflux, GI Bleed, Hearing Disorder / Deafness, Hyperlipidemia, Hypertension, Liver Disease, Pneumonia, Prostate Disorder, Pulmonary Embolus (PE) Additional Past Medical History / Comment(s): GI bleed/ esophageal varicies banded. Other hx: Alcoholism, alcohol withdrawal DTs and possibly a seizure in 2018 r/t withdrawal, chronic alcoholic cirrhosis with portal hypertension and previous history of upper and lower GI bleeding, esophageal varices, previous history of childhood seizure which he outgrew not taking any antiepileptic medication, pulmonary embolism x 2 R lung, TIA, diverticulosis, chronic lower bilateral extremity ankle edema if he walks a lot, previous history of septicemia, cervical disc disease, chronic neck pain, chronic back pain with r sided sciatica, degenerative arthritis involving the lower back, scoliosis, tinnitus, vitamin D deficiency, iron anemia, chronic thrombocytopenia, denies MRSA, C-DIFF -2018 History of Any Multi-Drug Resistant Organisms: MRSA Date of last positivie culture/infection: 03/17/18 MDRO Source:: stomach Past Surgical History: Appendectomy, Cholecystectomy Additional Past Surgical History / Comment(s): EGDs/esophageal varicies bandings, colonoscopies. Past Anesthesia/Blood Transfusion Reactions: No Reported Reaction Additional Past Anesthesia/Blood Transfusion Reaction / Comment(s): after appendix removed sob Past Psychological History: Anxiety, Depression Smoking Status: Never smoker Past Alcohol Use History: Abuse, Daily, Heavy Past Drug Use History: None Reported - Past Family History Mother Family Medical History: COPD, CVA/TIA, Dementia Additional Family Medical History / Comment(s): from a stroke Father Family Medical History: Pneumonia Additional Family Medical History / Comment(s): Father of pneumonia when he was close to 80 yrs old. Medications and Allergies Home Medications Medication Instructions Recorded Confirmed Type Ferrous Sulfate [Iron (65 MG 325 mg PO DAILY #30 tab 06/07/19 04/01/21 Rx Elemental)] Sucralfate [Carafate] 1 gm PO AC-TID #90 tablet 06/07/19 04/01/21 Rx Folic Acid 1 mg PO DAILY 01/07/20 04/01/21 History Tamsulosin [Flomax] 0.4 mg PO DAILY 01/07/20 04/01/21 History traZODone HCL 50 mg PO HS PRN 01/07/20 04/01/21 History Cyclobenzaprine [Flexeril] 10 mg PO TID PRN 06/03/20 04/01/21 History Ergocalciferol [Vitamin D2 (1250 1,250 mcg PO Q30D 10/30/20 04/01/21 History Mcg = 22037 Iu)] Naproxen 500 mg PO BID PRN 10/30/20 04/01/21 History Doxazosin [Cardura] 1 mg PO DAILY 03/02/21 04/01/21 History Omeprazole 20 mg PO DAILY 03/02/21 04/01/21 History Potassium Chloride ER [K-Dur 20] 20 meq PO BID 03/02/21 04/01/21 History cloNIDine HCL [Catapres] 0.3 mg PO TID 03/02/21 04/01/21 History Apixaban [Eliquis] 5 mg PO BID #60 tab 03/04/21 04/01/21 Rx Diltiazem Oral [Cardizem*] 30 mg PO BID #60 tab 03/04/21 04/01/21 Rx Metoprolol Succinate (ER) [Toprol 100 mg PO DAILY #30 tablet 03/04/21 04/01/21 Rx XL] Thiamine [Vitamin B-1] 100 mg PO BID-W/MEALS #60 tab 03/04/21 04/01/21 Rx HYDROcodone/APAP 5-325MG [Glen 1 tab PO Q6H PRN 04/01/21 04/01/21 History 5-325] Allergies Allergy/AdvReac Type Severity Reaction Status Date / Time adhesive tape Allergy Rash/Hives Verified 04/01/21 15:53 latex Allergy Unknown Verified 04/01/21 15:53 egg AdvReac Nausea & Verified 04/01/21 15:53 Vomiting lisinopril AdvReac EYES Verified 04/01/21 15:53 BURN&ITCH/WEAKNESS tomato AdvReac Nausea & Verified 04/01/21 15:53 Vomiting & Diarrhea Physical Exam Vitals: Vital Signs Temp Pulse Resp BP Pulse Ox 04/02/21 05:44 74 18 111/74 95 04/02/21 05:37 69 18 118/75 96 04/02/21 05:31 97.3 F L 63 18 119/72 95 04/02/21 05:18 64 18 119/76 95 04/02/21 02:16 71 18 125/77 94 L 04/02/21 00:08 73 16 109/77 97 04/01/21 21:29 85 17 122/79 94 L 04/01/21 20:45 88 16 124/92 94 L 04/01/21 19:47 91 16 177/111 97 04/01/21 19:00 93 18 178/114 95 04/01/21 18:00 86 18 171/102 04/01/21 17:00 76 18 160/115 04/01/21 16:29 86 18 162/86 98 04/01/21 16:16 84 18 181/115 95 04/01/21 16:05 79 18 168/120 98 04/01/21 15:28 77 18 182/113 96 04/01/21 14:28 79 18 190/104 95 04/01/21 14:23 98.2 F 86 18 192/113 94 L Results 04/01/21 14:54 04/01/21 14:54 Cardiac Enzymes 04/01/21 04/01/21 04/01/21 Range/Units 14:54 14:54 19:02 AST 101 H (17-59) U/L Troponin I <0.012 0.014 (0.000-0.034) ng/mL 04/01/21 04/02/21 Range/Units 23:00 06:17 AST (17-59) U/L Troponin I 0.016 <0.012 (0.000-0.034) ng/mL Coagulation 04/01/21 Range/Units 14:54 PT 12.6 H (9.0-12.0) sec APTT 26.0 (22.0-30.0) sec CBC 04/01/21 Range/Units 14:54 WBC 4.4 (3.8-10.6) k/uL RBC 4.65 (4.30-5.90) m/uL Hgb 15.1 (13.0-17.5) gm/dL Hct 44.3 (39.0-53.0) % Plt Count 90 L (150-450) k/uL Comprehensive Metabolic Panel 04/01/21 Range/Units 14:54 Sodium 138 (137-145) mmol/L Potassium 4.1 (3.5-5.1) mmol/L Chloride 101 (98-107) mmol/L Carbon Dioxide 27 (22-30) mmol/L BUN 15 (9-20) mg/dL Creatinine 0.99 (0.66-1.25) mg/dL Glucose 143 H (74-99) mg/dL Calcium 9.4 (8.4-10.2) mg/dL AST 101 H (17-59) U/L ALT 52 H (4-49) U/L Alkaline Phosphatase 107 (38-126) U/L Total Protein 8.3 H (6.3-8.2) g/dL Albumin 4.3 (3.5-5.0) g/dL Current Medications Generic Name Dose Route Start Last Admin Trade Name Freq PRN Reason Stop Dose Admin Acetaminophen 650 mg 04/02/21 02:30 04/02/21 02:40 Acetaminophen Tab 325 Mg Tab PO 650 mg Q6HR PRN Administration Fever and/ or Pain Apixaban 5 mg 04/01/21 21:00 04/01/21 21:58 Apixaban 5 Mg Tab PO 5 mg BID [facility] Administration Protocol Aspirin 325 mg 04/02/21 09:00 Aspirin 325 Mg Tab PO DAILY [facility] Clonidine 0.3 mg 04/01/21 17:30 04/02/21 00:09 Clonidine Hcl 0.1 Mg Tab PO Not Given TID [facility] Diltiazem HCl 30 mg 04/01/21 21:00 04/01/21 21:59 Diltiazem Oral 30 Mg Tab PO 30 mg BID [facility] Administration Doxazosin Mesylate 1 mg 04/02/21 09:00 Doxazosin 1 Mg Tab PO DAILY [facility] Magnesium Oxide 400 mg 04/01/21 22:00 04/02/21 00:21 Magnesium Oxide 400 Mg Tab PO 400 mg BID [facility] Administration Metoprolol Succinate 100 mg 04/02/21 09:00 Metoprolol Succinate (Er) 100 Mg Tab.Er.24h PO DAILY [facility] Nitroglycerin 0.4 mg 04/01/21 17:17 04/02/21 05:38 Nitroglycerin Sl Tabs 0.4 Mg Tab SUBLINGUAL 0.4 mg Q5M PRN Administration Chest Pain Nitroglycerin 1 inch 04/01/21 18:00 04/02/21 07:21 Nitroglycerin Oint 1 Inch/Gm Packet TOPICAL Not Given Q6HR [facility] Ondansetron HCl 4 mg 04/02/21 02:32 04/02/21 02:41 Ondansetron 4 Mg/2 Ml Vial IVP 4 mg Q6HR PRN Administration Nausea And Vomiting Pantoprazole Sodium 40 mg 04/02/21 09:00 Pantoprazole 40 Mg Tablet PO DAILY [facility] Sodium Chloride 10 ml 04/01/21 21:00 04/01/21 21:59 Sodium Chloride 0.9% Flush 10 Ml Syringe IV 10 ml BID [facility] Administration Thiamine HCl 100 mg 04/01/21 17:30 04/01/21 18:58 Thiamine 100 Mg Tab PO 100 mg BID-W/MEALS TANYA Administration Trazodone HCl 50 mg 04/01/21 17:19 Trazodone Hcl 50 Mg Tab PO HS PRN Insomnia 04/01/21 14:54 04/01/21 14:54
[2021-04-02 09:45] LABS: Chol/HDL Ratio 3.96 Ratio; LDL Cholesterol,Calculated 146.7 mg/dL (0.0-131.0)
[2021-04-02] MEDS: DILTIAZEM ORAL 30 MG TAB PO SCH (11:03)
[2021-04-02] MEDS: METOPROLOL SUCCINATE (ER) 100 MG TAB.ER.24H PO SCH (11:03)
--- NOTE | 2021-04-02 12:00 | ECHOF ---
Referral Reason:Chest pain MEASUREMENTS -------- HEIGHT: 165.1 cm WEIGHT: 96.6 kg BP: IVSd: 1.2 cm (0.6 - 1.1) LVIDd: 5.1 cm (3.9 - 5.3) LVPWd: 1.0 cm (0.6 - 1.1) IVSs: 1.9 cm LVIDs: 1.9 cm LVPWs: 2.4 cm LAESV Index (A-L): 21.43 ml/m Ao Diam: 3.5 cm (2.0 - 3.7) AV Cusp: 2.0 cm (1.5 - 2.6) LA Diam: 3.0 cm (2.7 - 3.8) MV EXCURSION: 12.148 mm (> 18.000) MV EF SLOPE: 77 mm/s (70 - 150) EPSS: 0.7 cm MV E Riki: 0.50 m/s MV DecT: 162 ms MV A Riki: 0.56 m/s MV E/A Ratio: 0.88 RAP: 5.00 mmHg RVSP: 16.07 mmHg FINDINGS -------- This was a technically good study. The left ventricular size is normal. There is borderline concentric left ventricular hypertrophy. Overall left ventricular systolic function is normal with, an EF between 55 - 60 %. The diastolic filling pattern is normal for the age of the patient 7.73. The right ventricle is normal in size. The left atrial size is normal. Normal LA size by volume 22+/-6 ml/m2. The right atrial size is normal. The aortic valve is trileaflet and appears structurally normal. The mitral valve is normal. There is trace mitral regurgitation. The tricuspid valve appears structurally normal. Trace tricuspid regurgitation present. Right isabel tricular systolic pressure is normal at < 35 mmHg. There is no pulmonic regurgitation present. The aortic root size is normal. IVC Not well visulized. There is no pericardial effusion. CONCLUSIONS -------- 1. The left ventricular size is normal. 2. There is borderline concentric left ventricular hypertrophy. 3. Overall left ventricular systolic function is normal with, an EF between 55 - 60 %. 4. The diastolic filling pattern is normal for the age of the patient 7.73 5. There is trace mitral regurgitation. 6. Trace tricuspid regurgitation present. 7. There is no pericardial effusion. AVIATION PROJECT ENGINEER: Lizet Abbott RDCS
[2021-04-02 12:18] LABS: Glucose,Whole Blood 141 mg/dL (75-99)
[2021-04-02] MEDS ORDERED: SODIUM CHLORIDE 0.9% 500 ML 500 ML IV ONE (16:12)
[2021-04-02 17:20] LABS: Glucose,Whole Blood 191 mg/dL (75-99)
--- NOTE | 2021-04-02 18:22 | PN ---
PROGRESS NOTE DATE OF SERVICE: 04/02/2021 CHIEF COMPLAINT: Chest pain, hypertension. HISTORY OF PRESENT ILLNESS: This gentleman was doing well and then in the afternoon dropped his blood pressure into the 70s. He had no chest pain. He was slightly short of breath. He is on a number of antihypertensive medications. It has always been wondered if he is really taking these at home. He has been seen by Cardiology and they ordered an echocardiogram. PHYSICAL EXAMINATION: Blood pressure . Chest demonstrates rales at the bases. The cardiac exam demonstrates sinus rhythm. The abdomen is soft. IMPRESSION: 1. Chest pain. 2. History of coronary artery disease. 3. History of pulmonary embolism. 4. Hypotension. PLAN: 1. Stop the antihypertensives. 2. Fluid bolus. 3. Bedrest. MMODL / IJN: [id number] /
[2021-04-02 20:27] LABS: Glucose,Whole Blood 147 mg/dL (75-99)
[2021-04-03] MEDS: NITROGLYCERIN OINT 1 INCH/GM PACKET TOPICAL SCH ×3 (00:52→11:42)
[2021-04-03 02:37] VITALS: RESP 18
[2021-04-03] MEDS ORDERED: REGADENOSON 0.4 MG/5 ML SYRINGE IV PRN (06:00)
[2021-04-03] MEDS ORDERED: CAFFEINE CITRATE 60 MG/3 ML VIAL IV PRN (06:00)
[2021-04-03] MEDS ORDERED: AMINOPHYLLINE 500 MG/20 ML VIAL IV PRN (06:00)
[2021-04-03] MEDS: PANTOPRAZOLE 40 MG TABLET PO SCH (07:10)
[2021-04-03] MEDS: APIXABAN 5 MG TAB PO SCH (07:10)
[2021-04-03] MEDS: ASPIRIN 81 MG PO SCH (07:10)
[2021-04-03] MEDS: MAGNESIUM OXIDE 400 MG TAB PO SCH (07:10)
[2021-04-03] MEDS: THIAMINE 100 MG TAB PO SCH (07:10)
[2021-04-03 07:42] VITALS: BP 125/82; PULSE 99; TEMP 97.9
[2021-04-03 08:20] LABS: Glucose,Whole Blood 122 mg/dL (75-99)
[2021-04-03] MEDS: METOPROLOL SUCCINATE (ER) 100 MG TAB.ER.24H PO SCH (11:45)
--- NOTE | 2021-04-03 12:27 | NM ---
EXAMINATION TYPE: NM stress lexiscan cardiolite DATE OF EXAM: 04/03/2021 COMPARISON: 07/26/2012 HISTORY: Chest pain TECHNIQUE: After the intravenous administration of 9.4 mCi Tc 99m Sestamibi - Cardiolite resting SPE CT images acquired 70 minutes post injection. The patient received 0.4mg Lexiscan, 26.4 mCi Tc 99m Sestamibi - Stress images obtained [address] injection FINDINGS: Review of stress and rest SPECT images demonstrates no distinct perfusion abnormality. Gated analysi s shows normal wall motion with an estimated left ventricular ejection fraction of 34 %. IMPRESSION: 1. No diagnostic evidence of reversible ischemia. 2. The stress EKG ejection fraction of 61% and the resting is only 34%. Given the discrepancy recomme nd echocardiogram.
--- NOTE | 2021-04-03 12:42 | P.STRESS ---
- Stress Test Note Stress Test Results/Findings: Exam Performed: NM stress lexiscan cardiolite Exam Date: 04/03/21 Reason for Exam: Chest Pain Height: 5 ft 5 in Weight: 96.62 kg Protocol: Arpit Stage: na Duration of Exercise: na Resting Heart Rate: 88 Resting Blood Pressure: 146/99 Maximum Achieved Heart Rate: 112 Maximum Achieved Blood Pressure: 169/88 85% PMHR: 133 100% PMHR: 156 METS: na Technologist Comment: Stress Test Results/Findings: At baseline EKG showed normal sinus rhythm, normal axis, no significant ST or T wave abnormalities. Patient recieved IV infusion of Lexiscan 0.4mg and at peak infusion EKG showed no significant change from baseline. Conclusions: 1. Normal EKG response to Lexiscan infusion 2. Nuclear imaging to be reported separately.
--- NOTE | 2021-04-03 12:52 | P.PN ---
Subjective Progress Note Date: 04/03/21 HISTORY OF PRESENT ILLNESS: This is a 65-year-old male with a past medical history significant for alcohol abuse with recent relapse, diabetes, COPD, TIA, and newly diagnosed atrial fibrillation a few weeks ago per patient. 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 We have been asked to see the patient in consultation for chest pain. Patient examined at the bedside. Patient presented to the emergency room with a chief complaint of chest pain and generalized malaise. Patient states about a week ago he began coughing and has had a pretty constant cough since then. He also reports persistent nausea. He denies vomiting. He reports feel "lousy" Patient states the chest pain has been present for about a week. He is having a hard time describing the pain when asked and is unable to give an exact description of the pain such as if it is dull or sharp. He states the pain is worse when he is up ambulating. He states his chest wall does not hurt when it is palpated. He states the pain is 10 out of 10 this morning with movement. Patient received nitro overnight which he states helped ease the pain. He also reports having some fluttering in his heart occasionally. The patient did have a dobutamine stress test in November 2017. The patient states in the past he had a stress test and had a seizure from it but he is unsure of when this was. EKG reveals sinus mechanism with no signs of acute ischemia Chest xray negative for acute process. Laboratory data: WBC 4.4. Hemoglobin 15.1. Platelet count 90. Sodium 138. Potassium 4.1. BUN 15. Creatinine 0.99. ProBNP 186. Troponin negative 3. Serum alcohol 20. Dubois virus negative. Most recent echocardiogram obtained in 2018 revealed ejection fraction greater than 55%. Mild mitral regurgitation. Mild tricuspid regurgitation. Patient underwent a between stress test in November 2017 which was negative for ischemia 04/03/2021 Patient examined this morning at the bedside. He continues to have a frequent cough. He reports some chest discomfort when he is coughing. Vital signs are sta ble. PHYSICAL EXAM: VITAL SIGNS: Reviewed. GENERAL: Well-developed in no acute distress. HEENT: Head is normocephalic. Pupils are equal, round. Sclerae anicteric. Mucous membranes of the mouth are moist. Neck supple. No JVD or thyromegaly LUNGS: Respirations even and unlabored. Lungs diminished to auscultation bilaterally. Frequent coughing noted. HEART: Regular rate and rhythm. S1 and S2 heard. ABDOMEN: Soft. Nondistended. Nontender. EXTREMITIES: Normal range of motion. No clubbing or cyanosis. Peripheral pulses intact. No lower extremity edema NEUROLOGIC: Awake and alert. Oriented x 3. ASSESSMENT: Chest pain, atypical, troponin negative x 3 Cough, nausea, and generalized malaise 1 week Paroxysmal atrial fibrillation, diagnosed a few weeks ago by his PCP per patient COPD TIA Diabetes History of alcohol abuse with recent relapse 2 weeks ago PLAN: Patient underwent Lexiscan stress test which was negative for reversible ischemia. Stress EKG ejection fraction of 61% and resting only 34%. However echocardiogram was completed yesterday revealing ejection fraction 55- 60%, trace mitral regurgitation, and trace tricuspid regurgitation The patient is stable for discharge home today from a cardiac standpoint. We will sign off. Please reconsult if needed. Nurse practitioner note has been reviewed by physician. Signing provider agrees with the documented findings, assessment, and plan of care. Objective - Vital Signs Vital signs: Vital Signs Temp 97.9 F 04/03/21 07:00 Pulse 99 04/03/21 07:00 Resp 18 04/03/21 08:00 BP 125/82 04/03/21 07:00 Pulse Ox 95 04/03/21 07:05 Intake & Output 04/02/21 04/03/21 04/03/21 18:59 06:59 18:59 Intake Total 540 500 Balance 540 500 Weight 96.615 kg 96.62 kg Intake: Intake, IV Titration 500 Amount Sodium Chloride 0.9% 500 500 ml 500 ml @ 999 mls/hr IV .Q31M ONE Rx#:[id number] Oral 540 Other: Voiding Method Toilet Toilet Toilet # Voids 1 2 1 - Labs CBC & Chem 7: 04/01/21 14:54 04/01/21 14:54 Labs: Abnormal Lab Results - Last 24 Hours (Table) 04/02/21 04/02/21 04/03/21 Range/Units 17:19 20:26 07:38 POC Glucose (mg/dL) 191 H 147 H 122 H (75-99) mg/dL
[2021-04-03 13:08] LABS: Glucose,Whole Blood 138 mg/dL (75-99)
--- NOTE | 2021-04-03 18:57 | DS ---
DISCHARGE SUMMARY CHIEF COMPLAINT: Chest pain. HISTORY OF PRESENT ILLNESS AND PHYSICAL EXAMINATION: Details of this man's history and physical can be found in the initial workup. LABORATORY STUDIES: While he was in the hospital he had laboratory studies, details of which can be found in the laboratory section of his chart. COURSE IN THE HOSPITAL: After admission, he was placed on bedrest and started on intravenous fluids and had serial EKGs and enzymes. He was seen by Cardiology, but it was felt that no further intervention was necessary. His blood pressure did fluctuate. Initially it was high, but then dropped back to the 70s, and some of his antihypertensive medication was stopped and he was given a bolus of fluid. Blood pressure returned to normal. He was doing well and it was felt that he could go home on April 03. FINAL DIAGNOSES: 1. Chest pain. 2. Coronary artery disease. 3. Previous pulmonary embolism. 4. Hypertension. 5. Alcoholism. OPERATIONS: None. CONSULTATION: Cardiology. He is improved. MMODL / IJN: [id number] /
== END 2021-04-03 15:55 | disposition home or self-care (01) ==
LOC: EC 13:59 → 6NMEDSUR 17:17
PROVIDERS: ADMIT Family Medicine; ATTEND Family Medicine
DX: R07.89 Other chest pain (principal); J44.9 Chronic obstructive pulmonary disease, unspecified; I48.0 Paroxysmal atrial fibrillation; I25.10 Atherosclerotic heart disease of native coronary artery without angina pectoris; I10 Essential (primary) hypertension; E11.9 Type 2 diabetes mellitus without complications; I95.9 Hypotension, unspecified; J84.9 Interstitial pulmonary disease, unspecified; E78.5 Hyperlipidemia, unspecified; H91.90 Unspecified hearing loss, unspecified ear; K21.9 Gastro-esophageal reflux disease without esophagitis; K70.30 Alcoholic cirrhosis of liver without ascites; K76.6 Portal hypertension; M50.90 Cervical disc disorder, unspecified, unspecified cervical region; M47.816 Spondylosis without myelopathy or radiculopathy, lumbar region; E55.9 Vitamin D deficiency, unspecified; F32.A Depression, unspecified; F41.9 Anxiety disorder, unspecified; M47.814 Spondylosis without myelopathy or radiculopathy, thoracic region; R51.9 Headache, unspecified; F10.20 Alcohol dependence, uncomplicated; R53.81 Other malaise; R11.0 Nausea; Z20.822 Contact with and (suspected) exposure to COVID-19; N42.9 Disorder of prostate, unspecified; K57.90 Diverticulosis of intestine, part unspecified, without perforation or abscess without bleeding; G89.29 Other chronic pain; M54.9 Dorsalgia, unspecified; M41.9 Scoliosis, unspecified; D50.9 Iron deficiency anemia, unspecified; D69.6 Thrombocytopenia, unspecified; Z79.01 Long term (current) use of anticoagulants; Z79.899 Other long term (current) drug therapy; Z91.012 Allergy to eggs; Z91.040 Latex allergy status; Z88.8 Allergy status to other drugs, medicaments and biological substances; Z91.018 Allergy to other foods; Z91.048 Other nonmedicinal substance allergy status; Z86.73 Personal history of transient ischemic attack (TIA), and cerebral infarction without residual deficits; Z86.711 Personal history of pulmonary embolism; Z87.01 Personal history of pneumonia (recurrent); Z86.69 Personal history of other diseases of the nervous system and sense organs; Z86.14 Personal history of Methicillin resistant Staphylococcus aureus infection; Z86.19 Personal history of other infectious and parasitic diseases; Z90.49 Acquired absence of other specified parts of digestive tract; Z98.890 Other specified postprocedural states; Z82.5 Family history of asthma and other chronic lower respiratory diseases; Z82.3 Family history of stroke; Z82.0 Family history of epilepsy and other diseases of the nervous system
CPT/HCPCS: 96376 ×2; 96361 ×2; 96374; 96375; 99285; 36415; 94760; 93005 ×2; 93017; 93306; 83880; 80061; 80053; 83735; 84484 ×2; 85025; 85610; 85730; 87635; 71046; 71275; 78452; G0378 ×3; G0480; A9500; J2405 ×2; J2785; Q9967; 80320

== ENCOUNTER 2021-04-21 20:10 | Observation (INO) | payer MEDICARE, OTHER ==
[~2021-04-21 20:10] MED LIST: THIAMINE 100 MG TAB PO SCH
[2021-04-21] MEDS ORDERED: MORPHINE SULFATE 4 MG/ML SYRINGE IV STA (20:33)
[2021-04-21 20:48] LABS: Basophils % (A) 1 %; Eosinophils # (A) 0.1 k/uL (0-0.7); Eosinophils % (A) 1 %; HCT 44.8 % (39.0-53.0); HGB 15.9 gm/dL (13.0-17.5); Lymphocytes # (A) 1.6 k/uL (1.0-4.8); Lymphocytes % (A) 25 %; MCH 33.9 pg (25.0-35.0); MCHC 35.4 g/dL (31.0-37.0); MCV 95.7 fL (80.0-100.0); Monocytes # (A) 0.4 k/uL (0-1.0); Monocytes % (A) 6 %; Neutrophils # (A) 4.2 k/uL (1.3-7.7); Neutrophils % (A) 65 %; Platelet Count 129 k/uL (150-450); RBC 4.68 m/uL (4.30-5.90); RDW 14.4 % (11.5-15.5); WBC 6.5 k/uL (3.8-10.6)
[2021-04-21 20:55] LABS: ALT 50 U/L (4-49); AST 73 U/L (17-59); African American GFR (CKD) >90 (>60 ml/min/1.73 sqM); Albumin 4.1 g/dL (3.5-5.0); Alkaline Phosphatase 134 U/L (38-126); Amylase 66 U/L (30-110); Anion Gap 11 mmol/L; Blood Urea Nitrogen 10 mg/dL (9-20); Calcium 9.9 mg/dL (8.4-10.2); Carbon Dioxide 28 mmol/L (22-30); Chloride 100 mmol/L (98-107); Glucose 154 mg/dL (74-99); Lipase 135 U/L (23-300); Magnesium 1.3 mg/dL (1.6-2.3); Non-African American GFR(CKD) >90 (>60 ml/min/1.73 sqM); Potassium 3.6 mmol/L (3.5-5.1); Sodium 139 mmol/L (137-145); Total Protein 8.2 g/dL (6.3-8.2)
[2021-04-21 20:59] LABS: INR 1.1 (<1.2); Partial Thromboplastin Time 23.3 sec (22.0-30.0); Prothrombin Time 11.8 sec (9.0-12.0)
--- NOTE | 2021-04-21 21:00 | ED ---
General Adult HPI - General Chief complaint: Chest Pain Stated complaint: Chest Pain Time Seen by Provider: 04/21/21 20:25 Source: patient, EMS, RN notes reviewed, old records reviewed Mode of arrival: EMS Limitations: no limitations - History of Present Illness Initial comments: Patient is a 66-year-old male with past medical history remarkable for atrial fibrillation, COPD, diabetes, hypertension, pulmonary embolism who is on anticoagulation Eliquis, alcohol abuse presents emergency Department complaining of chest pain. Patient states that chest pain began this morning early. He states that he waited to see if it would result of the day but does not. He states is more or less constant since this morning. Describes it as left-sided, achy and sharp. Occasionally will radiate to his left shoulder. Denies any short is of breath, abdominal pain, diarrhea. Does endorse nausea without episodes of emesis. Denies any lightheadedness, blurry vision. Patient otherwise has no other acute complaints at this time. He denies any history of stent placement. Denies any history of MIs. Has no other acute complaints at this time. Patient states he is fully compliant with his Eliquis and denies missing any doses. Denies any lower extremity swelling. His no other acute complaints at this time. Patient wasn't listed aspirin and route as well as nitro. States that chest pain was initially 10 out of 10 and is now a 6 or 7 out of 10. - Related Data Home Medications Medication Instructions Recorded Confirmed Folic Acid 1 mg PO DAILY 01/07/20 04/01/21 Tamsulosin [Flomax] 0.4 mg PO DAILY 01/07/20 04/01/21 traZODone HCL 50 mg PO HS PRN 01/07/20 04/01/21 Cyclobenzaprine [Flexeril] 10 mg PO TID PRN 06/03/20 04/01/21 Ergocalciferol [Vitamin D2 (1250 1,250 mcg PO Q30D 10/30/20 04/01/21 Mcg = 22794 Iu)] Naproxen 500 mg PO BID PRN 10/30/20 04/01/21 Doxazosin [Cardura] 1 mg PO DAILY 03/02/21 04/01/21 Omeprazole 20 mg PO DAILY 03/02/21 04/01/21 Potassium Chloride ER [K-Dur 20] 20 meq PO BID 03/02/21 04/01/21 HYDROcodone/APAP 5-325MG [[place] 1 tab PO Q6H PRN 04/01/21 04/01/21 5-325] Previous Rx's Medication Instructions Recorded Ferrous Sulfate [Iron (65 MG 325 mg PO DAILY #30 tab 06/07/19 Elemental)] Sucralfate [Carafate] 1 gm PO AC-TID #90 tablet 06/07/19 Apixaban [Eliquis] 5 mg PO BID #60 tab 03/04/21 Metoprolol Succinate (ER) [Toprol 100 mg PO DAILY #30 tablet 03/04/21 XL] Thiamine [Vitamin B-1] 100 mg PO BID-W/MEALS #60 tab 03/04/21 Magnesium Oxide [Mag-Ox] 400 mg PO BID #60 tab 04/03/21 Allergies Allergy/AdvReac Type Severity Reaction Status Date / Time adhesive tape Allergy Rash/Hives Verified 04/01/21 15:53 latex Allergy Unknown Verified 04/01/21 15:53 egg AdvReac Nausea & Verified 04/01/21 15:53 Vomiting lisinopril AdvReac EYES Verified 04/01/21 15:53 BURN&ITCH/WEAKNESS tomato AdvReac Nausea & Verified 04/01/21 15:53 Vomiting & Diarrhea Review of Systems ROS Statement: Those systems with pertinent positive or pertinent negative responses have been documented in the HPI. Review of Systems: CONST: Denies fever EYES: Denies blurry vision ENT: Denies nasal congestion C/V: Endorses chest pain RESP: Denies shortness of breath GI: Denies abdominal pain : Denies dysuria SKIN: Denies rash. MSK: Denies joint pain. NEURO: Denies headache ROS Other: All systems not noted in ROS Statement are negative. Past Medical History Past Medical History: Atrial Fibrillation, Chest Pain / Angina, COPD, CVA/TIA, Diabetes Mellitus, GERD/Reflux, GI Bleed, Hearing Disorder / Deafness, Hyperlipidemia, Hypertension, Liver Disease, Pneumonia, Prostate Disorder, Pulmonary Embolus (PE) Additional Past Medical History / Comment(s): GI bleed/ esophageal varicies banded. Other hx: Alcoholism, alcohol withdrawal DTs and possibly a seizure in 2018 r/t withdrawal, chronic alcoholic cirrhosis with portal hypertension and previous history of upper and lower GI bleeding, esophageal varices, previous history of childhood seizure which he outgrew not taking any antiepileptic medication, pulmonary embolism x 2 R lung, TIA, diverticulosis, chronic lower bilateral extremity ankle edema if he walks a lot, previous history of septicemia, cervical disc disease, chronic neck pain, chronic back pain with r sided sciatica, degenerative arthritis involving the lower back, scoliosis, tinnitus, vitamin D deficiency, iron anemia, chronic thrombocytopenia, denies MRSA, C-DIFF -2018 History of Any Multi-Drug Resistant Organisms: MRSA Date of last positivie culture/infection: 03/17/18 MDRO Source:: stomach Past Surgical History: Appendectomy, Cholecystectomy Additional Past Surgical History / Comment(s): EGDs/esophageal varicies bandings, colonoscopies. Past Anesthesia/Blood Transfusion Reactions: No Reported Reaction Additional Past Anesthesia/Blood Transfusion Reaction / Comment(s): after appendix removed sob Past Psychological History: Anxiety, Depression Smoking Status: Never smoker Past Alcohol Use History: Abuse Past Drug Use History: None Reported - Past Family History Mother Family Medical History: COPD, CVA/TIA, Dementia Additional Family Medical History / Comment(s): from a stroke Father Family Medical History: Pneumonia Additional Family Medical History / Comment(s): Father of pneumonia when he was close to 80 yrs old. General Exam - General Exam Comments Initial Comments: General: Appears in no acute distress. HEAD: Normal with no signs of head trauma. EYES: PERRLA, EOMI, conjunctiva normal, no discharge. ENT: Hearing grossly intact, normal oropharynx. RESPIRATORY: Clear breath sounds bilaterally. No wheezes, rales, or rhonchi. C/V: Mildly tachycardic with a regular rhythm. S1 and S2 auscultated. No peripheral edema. Peripheral pulses are 2+ and intact throughout. ABD: Abd is soft, nontender, nondistended EXT: Normal range of motion, no obvious deformity SKIN: No rashes or lesions observed on exposed skin. NEURO: Alert and oriented 4. No focal deficits. Limitations: no limitations Course Vital Signs 04/21/21 04/21/21 04/21/21 20:13 20:24 22:20 Temperature 98.4 F Pulse Rate 118 H 110 H Respiratory 18 19 Rate Blood Pressure 178/112 215/144 O2 Sat by Pulse 95 94 L Oximetry Medical Decision Making - Medical Decision Making Based on the patient's presentation and physical exam, I would like to rule out possibility of cardiac etiology for his current symptoms. We will obtain a cardiac workup, EKG, chest x-ray. We'll also obtain lipase and amylase is patient is a chronic alcoholic 12 possibly pancreatitis. He was in agreement this plan. I'm no suspicion for PE as the patient is very adamantly deny missing any doses of his anticoagulation for his history of PEs. Patient will be given morphine for chest pain. Patient does not require aspirin, as 324 mg of aspirin was given. Patient's EKG showed no signs of acute ischemia. Chest x-ray revealed no acute cardiopulmonary process. Laboratory studies are remarkable for a mild thrombocytopenia of 129. This is chronic. Patient is hypomagnesemic and 1.3 which was replenished. AST is slightly elevated and ALT at 73 and 50 respectively. Troponin is negative. Alcohol level is less than 10. On reevaluation, I did ask the patient again if he has been drinking. He states he has been sober for months. However is somewhat defensive. Due to the patient still remained tachycardic, as well as him an option saturations less than 95%, I did recommend that we obtain a CT PE to evaluate for the possibility of pu lmonary embolism, as patient's Wells score for PE is moderate from 3-6. Patient was in agreement this plan. Patient was administered a dose of morphine, however his chest pain is improved at this time. CT PE revealed no signs of acute pulmonary embolism. There are mild peripheral pulmonary interstitial infiltrates, probably related to prominent fibrosis. Reevaluation come patient is having some nausea from the morphine. He was in given Zofran. During this time, patient is hypertensive. He states he did not take his home blood pressure medication therefore will be administered a dose of his home metoprolol. I'm concerned for possible alcohol withdrawal at this time as well, as patient is tachycardic with mild tremors. Denies drinking, however, and ETOH level 0. We'll attempt to treat symptoms with Ativan as well as this time. He was in agreement with this plan. I extended it would like to admit him to the hospital and he was in agreement. Echo was ordered. Cardiology cons ult was placed for evaluation the morning. I spoke with the admitting physician under Dr. Beck who agreed with the workup and that the patient may be experiencing alcohol withdrawal. CIWA protocol will be placed on patient. He was in agreement with the plan. Troponins will be trended. - Lab Data Result diagrams: 04/21/21 20:37 04/21/21 20:37 Lab Results 04/21/21 04/21/21 04/21/21 Range/Units 20:37 20:37 20:37 WBC 6.5 (3.8-10.6) k/uL RBC 4.68 (4.30-5.90) m/uL Hgb 15.9 (13.0-17.5) gm/dL Hct 44.8 (39.0-53.0) % MCV 95.7 (80.0-100.0) fL MCH 33.9 (25.0-35.0) pg MCHC 35.4 (31.0-37.0) g/dL RDW 14.4 (11.5-15.5) % Plt Count 129 L (150-450) k/uL MPV 8.0 Neutrophils % 65 % Lymphocytes % 25 % Monocytes % 6 % Eosinophils % 1 % Basophils % 1 % Neutrophils # 4.2 (1.3-7.7) k/uL Lymphocytes # 1.6 (1.0-4.8) k/uL Monocytes # 0.4 (0-1.0) k/uL Eosinophils # 0.1 (0-0.7) k/uL Basophils # 0.0 (0-0.2) k/uL PT 11.8 (9.0-12.0) sec INR 1.1 (<1.2) APTT 23.3 (22.0-30.0) sec Sodium 139 (137-145) mmol/L Potassium 3.6 (3.5-5.1) mmol/L Chloride 100 (98-107) mmol/L Carbon Dioxide 28 (22-30) mmol/L Anion Gap 11 mmol/L BUN 10 (9-20) mg/dL Creatinine 0.83 (0.66-1.25) mg/dL Est GFR (CKD-EPI)AfAm >90 (>60 ml/min/1.73 sqM) Est GFR (CKD-EPI)NonAf >90 (>60 ml/min/1.73 sqM) Glucose 154 H (74-99) mg/dL Calcium 9.9 (8.4-10.2) mg/dL Magnesium 1.3 L (1.6-2.3) mg/dL Total Bilirubin 1.0 (0.2-1.3) mg/dL AST 73 H (17-59) U/L ALT 50 H (4-49) U/L Alkaline Phosphatase 134 H (38-126) U/L Troponin I (0.000-0.034) ng/mL Total Protein 8.2 (6.3-8.2) g/dL Albumin 4.1 (3.5-5.0) g/dL Amylase 66 (30-110) U/L Lipase 135 (23-300) U/L Serum Alcohol mg/dL 04/21/21 04/21/21 Range/Units 20:37 21:26 WBC (3.8-10.6) k/uL RBC (4.30-5.90) m/uL Hgb (13.0-17.5) gm/dL Hct (39.0-53.0) % MCV (80.0-100.0) fL MCH (25.0-35.0) pg MCHC (31.0-37.0) g/dL RDW (11.5-15.5) % Plt Count (150-450) k/uL MPV Neutrophils % % Lymphocytes % % Monocytes % % Eosinophils % % Basophils % % Neutrophils # (1.3-7.7) k/uL Lymphocytes # (1.0-4.8) k/uL Monocytes # (0-1.0) k/uL Eosinophils # (0-0.7) k/uL Basophils # (0-0.2) k/uL PT (9.0-12.0) sec INR (<1.2) APTT (22.0-30.0) sec Sodium (137-145) mmol/L Potassium (3.5-5.1) mmol/L Chloride (98-107) mmol/L Carbon Dioxide (22-30) mmol/L Anion Gap mmol/L BUN (9-20) mg/dL Creatinine (0.66-1.25) mg/dL Est GFR (CKD-EPI)AfAm (>60 ml/min/1.73 sqM) Est GFR (CKD-EPI)NonAf (>60 ml/min/1.73 sqM) Glucose (74-99) mg/dL Calcium (8.4-10.2) mg/dL Magnesium (1.6-2.3) mg/dL Total Bilirubin (0.2-1.3) mg/dL AST (17-59) U/L ALT (4-49) U/L Alkaline Phosphatase (38-126) U/L Troponin I <0.012 (0.000-0.034) ng/mL Total Protein (6.3-8.2) g/dL Albumin (3.5-5.0) g/dL Amylase (30-110) U/L Lipase (23-300) U/L Serum Alcohol <10 mg/dL - EKG Data -: EKG Interpreted by Me EKG Comments: 12-lead Electrocardiogram Interpretation Note EKG was reviewed and interpreted by myself. 12-lead ECG performed at 2017 is interpreted by me as revealing sinus tachycardia at a rate of 116 beats per minute. [place] is normal. OR interval is 156 seconds, QRS duration is 60 ms, QTc is 483 ms.. There were no ST or T wave abnormalities to suggest myocardial ischemia or injury. R wave progression across the precordium was satisfactory. By my interpretation this EKG is non-diagnostic for acute ischemia. Disposition Clinical Impression: Chest pain, Hypertension, History of pulmonary embolism, Alcohol withdrawal Disposition: ADMITTED IP TO THIS HOSP Condition: Serious Referrals: Doug Beck MD [Primary Care Provider] - 1-2 days
--- NOTE | 2021-04-21 21:14 | XR ---
EXAMINATION TYPE: XR chest 2V DATE OF EXAM: 04/21/2021 COMPARISON: 04/01/2021 HISTORY: Chest pain TECHNIQUE: 2 views FINDINGS: There is no heart failure nor confluent pneumonic infiltrate. Costophrenic angles are clear . There are chest leads. Bony thorax is intact. IMPRESSION: No active cardiopulmonary disease. No adverse change.
[2021-04-21] MEDS ORDERED: MORPHINE SULFATE 4 MG/ML SYRINGE IVP STA (21:36)
[2021-04-21] MEDS ORDERED: MAGNESIUM SULFATE-D5W PMX 1 GM in DEXTROSE/WATER 1 100ML.BAG IVPB ONE (21:36)
--- NOTE | 2021-04-21 22:12 | CT ---
EXAMINATION TYPE: CT chest angio for PE DATE OF EXAM: 04/21/2021 COMPARISON: 04/01/2021 HISTORY: Chest pain. CT DLP: 541.3 mGycm Automated exposure control for dose reduction was used. CONTRAST: Performed with IV Contrast, patient injected with 75ml mL of Isovue 370. There are 3-D post processed images. There is some mild peripheral patchy pulmonary interstitial infiltrates. There is no pleural effusion . Heart size is normal. There is no pericardial effusion. There is normal contrast opacification of t he pulmonary arteries. There are no filling defects. There is no mediastinal adenopathy. There are no hilar masses. There is some degenerative spurring in the thoracic spine. There is P3 anterior wedgin g 50%. The sternum is intact. Thoracic aorta is intact. There is no aneurysm or dissection. IMPRESSION: No evidence of pulmonary embolism. Mild peripheral pulmonary interstitial infiltrates probably relate d to prominent fibrosis. No suspicious pulmonary mass. No significant change compared to old exam.
[2021-04-21] MEDS ORDERED: ONDANSETRON 4 MG/2 ML VIAL IVP STA (22:15)
[2021-04-21] MEDS ORDERED: METOPROLOL SUCCINATE (ER) 50 MG TAB.ER.24H PO STA (22:16)
[2021-04-21] MEDS ORDERED: LORazepam 2 MG/ML INJ IV STA (22:24)
[2021-04-21] MEDS ORDERED: THIAMINE 100 MG/ML 2 ML VIAL IM STA (22:30)
[2021-04-21] MEDS ORDERED: LORazepam 2 MG/ML INJ IV PRN ×3 (22:30)
[2021-04-21] MEDS ORDERED: KETOROLAC 30 MG/ML 1 ML VIAL IVP STA (22:31)
[2021-04-21] MEDS ORDERED: KETOROLAC 30 MG/ML 1 ML VIAL IVP PRN (22:31)
[2021-04-21] MEDS ORDERED: NALOXONE 0.4 MG/ML 1 ML VIAL IV PRN (22:31)
[2021-04-21] MEDS ORDERED: MORPHINE SULFATE 4 MG/ML SYRINGE IV PRN (22:31)
[2021-04-22] MEDS ORDERED: THIAMINE 100 MG TAB PO SCH ×2 (07:30)
[2021-04-22 08:22] VITALS: BP 155/93; PULSE 74; RESP 16; TEMP 97.8
[2021-04-22] MEDS ORDERED: METOPROLOL SUCCINATE (ER) 100 MG TAB.ER.24H PO SCH (09:00)
[2021-04-22] MEDS ORDERED: TAMSULOSIN 0.4 MG CAP.ER.24H PO SCH (09:00)
[2021-04-22] MEDS ORDERED: APIXABAN 5 MG TAB PO SCH (09:00)
[2021-04-22] MEDS ORDERED: ATORVASTATIN 40 MG TAB PO SCH (09:00)
[2021-04-22] MEDS ORDERED: VALSARTAN 160 MG TAB PO SCH (09:00)
--- NOTE | 2021-04-22 09:15 | P.CRDCN ---
History of Present Illness History of present illness: HISTORY OF PRESENT ILLNESS: This is a 66-year-old male with a past medical history significant for alcohol abuse, type 2 diabetes, COPD, TIA, and paroxysmal atrial fibrillation (on eliquis) diagnosed 03/2021 per patient. 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 We have been asked to see the patient in consultation for chest pain. Patient started to have left sided chest pain yesterday morning. Describes it as sharp and heavy. Radiating down his left arm. He states the pain is constant and he was sitting watching TV when it happened yesterday. He had associated diaphoresis. He does endorse some nausea and abdominal pain, no emesis. He was given IV Toradol and IV Zofran and he states that improved his chest pain and nausea. He denies shortness of breath, lightheadedness, dizziness, syncope or near syncope. He denies orthopnea or PND. He denies tobacco use or illicit drug use. He does endorse drinking heavily 2 months ago. He states he has not had a drink in about 2 months. He denies history of coronary artery disease or NH. Family history includes grandmother had an NH. Patient was recently admitted 04/01/2021 with chest pain. Cardiology evaluated the patient. He underwent Lexiscan stress test 04/03/21 which was negative for reversible ischemia. Stress EKG ejection fraction of 61% and resting only 34%. However Echocardiogram 04/02/2021 was completed revealing ejection fraction 55- 60%, trace mitral regurgitation, and trace tricuspid regurgitation. He was discharged home. He did not follow up with Dr. Olmedo yet. DIAGNOSTICS: EKG reveals sinus tachycardia HR 116, LVH, with no signs of acute ischemia Chest xray negative for acute process. CTA negative for pulmonary embolism. Mild peripheral pulmonary infiltrates probably related to prominent fibrosis per report. No significant change from prior. Laboratory data: Troponin negative 3. Serum alcohol negative. Dubois virus negative. Sodium 139 K 3.6, BUN 10, sCr 0.83, Mag 1.3, AST 73, ALT 50, Alkaline phos 134, Lipase and amylase WNL, WBC 6.5, Hgb 15.9, Plt 129. Most recent echocardiogram 04/02/2021 ejection fraction 55-60%, trace mitral regurgitation, and trace tricuspid regurgitation. Current home medications, Eliquis 5mg BID, Magnesium oxide 400mg BID, metoprolol succinate 100mg daily, thiamine, trazodone, carafate, omeprazole, Clymer PRN, ferrous sulfate, doxazosin, flexeril PRN REVIEW OF SYSTEMS: At the time of my exam: CONSTITUTIONAL: Denies fever or chills. HEENT: Denies blurred vision, vision changes, or eye pain. Denies hemoptysis CARDIOVASCULAR: Reports chest pain. Denies orthopnea. Denies PND. Denies palpitations RESPIRATORY: Denies shortness of breath. Reports cough. GASTROINTESTINAL: +abdominal pain. +nausea. Denies vomiting HEMATOLOGIC: Denies bleeding disorders. GENITOURINARY: Denies any blood in urine. SKIN: Denies pruitis. Denies rash. PHYSICAL EXAM: VITAL SIGNS: Reviewed. GENERAL: Well-developed in no acute distress. HEENT: Head is normocephalic. Pupils are equal, round. Sclerae anicteric. Mucous membranes of the mouth are moist. Neck supple. No JVD or thyromegaly LUNGS: Respirations even and unlabored. Lungs diminished to auscultation bilaterally. Frequent coughing noted. HEART: Regular rate and rhythm. S1 and S2 heard. ABDOMEN: Soft. Nondistended. Nontender. EXTREMITIES: Normal range of motion. No clubbing or cyanosis. Peripheral pulses intact. No lower extremity edema NEUROLOGIC: Awake and alert. Oriented x 3. ASSESSMENT: Chest pain, atypical, troponin negative x 3, recent negative Lexiscan stress test 04/03/2021 Hypertension Paroxysmal atrial fibrillation, diagnosed by his PCP per patient, on Eliquis COPD TIA Type 2 Diabetes History of alcohol abuse Hypomagnesemia Elevated LFTs Dyslipidemia PLAN: -An acute coronary event has been ruled out, patient's chest discomfort could be related to uncontrolled hypertension. -Start valsartan 160mg daily -Lipid panel reviewed from last admission, start atorvastatin 40mg daily -Continue home Eliquis 5mg BID and metoprolol succinate 100mg daily -From a cardiology perspective, ok to discharge later today and recommend follow up with Dr. Olmedo in 1-2 weeks. Nurse practitioner note has been reviewed by physician. Signing provider agrees with the documented findings, assessment, and plan of care. Past Medical History Past Medical History: Atrial Fibrillation, Chest Pain / Angina, COPD, CVA/TIA, Diabetes Mellitus, GERD/Reflux, GI Bleed, Hearing Disorder / Deafness, H yperlipidemia, Hypertension, Liver Disease, Pneumonia, Prostate Disorder, Pulmonary Embolus (PE) Additional Past Medical History / Comment(s): GI bleed/ esophageal varicies ba nded. Other hx: Alcoholism, alcohol withdrawal DTs and possibly a seizure in 2018 r/t withdrawal, chronic alcoholic cirrhosis with portal hypertension and previous history of upper and lower GI bleeding, esophageal varices, previous history of childhood seizure which he outgrew not taking any antiepileptic medication, pulmonary embolism x 2 R lung, TIA, diverticulosis, chronic lower bilateral extremity ankle edema if he walks a lot, previous history of septicemia, cervical disc disease, chronic neck pain, chronic back pain with r sided sciatica, degenerative arthritis involving the lower back, scoliosis, tinnitus, vitamin D deficiency, iron anemia, chronic thrombocytopenia, denies MRSA, C-DIFF -2018 History of Any Multi-Drug Resistant Organisms: MRSA Date of last positivie culture/infection: 03/17/18 MDRO Source:: stomach Past Surgical History: Appendectomy, Cholecystectomy Additional Past Surgical History / Comment(s): EGDs/esophageal varicies bandings, colonoscopies. Past Anesthesia/Blood Transfusion Reactions: No Reported Reaction Additional Past Anesthesia/Blood Transfusion Reaction / Comment(s): after appendix removed sob Past Psychological History: Anxiety, Depression Additional Psychological History / Comment(s): PATIENT LIVES IN APARTMENT ALONE, STATES USES A CANE. He gets to [place] by [employer] bus. Used to work in [employer]. His left him many years ago he has adult children that he does not see very often. No experience Smoking Status: Never smoker Past Alcohol Use History: Abuse Additional Past Alcohol Use History / Comment(s): Pt states he binged 1-2 pints of liquor every day 2 months ago. Past Drug Use History: None Reported - Past Family History Mother Family Medical History: COPD, CVA/TIA, Dementia Additional Family Medical History / Comment(s): from a stroke Father Family Medical History: Pneumonia Additional Family Medical History / Comment(s): Father of pneumonia when he was close to 80 yrs old. Medications and Allergies Home Medications Medication Instructions Recorded Confirmed Type Ferrous Sulfate [Iron (65 MG 325 mg PO DAILY #30 tab 06/07/19 04/21/21 Rx Elemental)] Sucralfate [Carafate] 1 gm PO AC-TID #90 tablet 06/07/19 04/21/21 Rx Folic Acid 1 mg PO DAILY 01/07/20 04/21/21 History Tamsulosin [Flomax] 0.4 mg PO DAILY 01/07/20 04/21/21 History traZODone HCL 50 mg PO HS PRN 01/07/20 04/21/21 History Cyclobenzaprine [Flexeril] 10 mg PO TID PRN 06/03/20 04/21/21 History Ergocalciferol [Vitamin D2 (1250 1,250 mcg PO Q30D 10/30/20 04/21/21 History Mcg = 35259 Iu)] Naproxen 500 mg PO BID PRN 10/30/20 04/21/21 History Doxazosin [Cardura] 1 mg PO DAILY 03/02/21 04/21/21 History Omeprazole 20 mg PO DAILY 03/02/21 04/21/21 History Potassium Chloride ER [K-Dur 20] 20 meq PO BID 03/02/21 04/21/21 History Apixaban [Eliquis] 5 mg PO BID #60 tab 03/04/21 04/21/21 Rx Metoprolol Succinate (ER) [Toprol 100 mg PO DAILY #30 tablet 03/04/21 04/21/21 Rx XL] Thiamine [Vitamin B-1] 100 mg PO BID-W/MEALS #60 tab 03/04/21 04/21/21 Rx HYDROcodone/APAP 5-325MG [C[place] 1 tab PO Q6H PRN 04/01/21 04/21/21 History 5-325] Magnesium Oxide [Mag-Ox] 400 mg PO BID #60 tab 04/03/21 04/21/21 Rx Atorvastatin [Lipitor] 40 mg PO DAILY 30 Days #30 tab 04/22/21 Rx Allergies Allergy/AdvReac Type Severity Reaction Status Date / Time adhesive tape Allergy Rash/Hives Verified 04/21/21 22:55 latex Allergy Unknown Verified 04/21/21 22:55 egg AdvReac Nausea & Verified 04/21/21 22:55 Vomiting lisinopril AdvReac EYES Verified 04/21/21 22:55 BURN&ITCH/WEAKNESS tomato AdvReac Nausea & Verified 04/21/21 22:55 Vomiting & Diarrhea Physical Exam Vitals: Vital Signs Temp Pulse Resp BP Pulse Ox 04/22/21 02:42 79 18 151/96 95 04/22/21 00:05 91 18 155/116 94 L 04/21/21 22:20 110 H 19 215/144 94 L 04/21/21 20:24 98.4 F 04/21/21 20:13 118 H 18 178/112 95 Intake and Output 04/21/21 04/22/21 04/22/21 22:59 06:59 14:59 Output Total 0 Balance 0 Output: Emesis 0 Other: Weight 97.522 kg 97.522 kg Results 04/21/21 20:37 04/21/21 20:37 Cardiac Enzymes 04/21/21 04/21/21 04/21/21 Range/Units 20:37 20:37 23:40 AST 73 H (17-59) U/L Troponin I <0.012 <0.012 (0.000-0.034) ng/mL 04/22/21 Range/Units 03:12 AST (17-59) U/L Troponin I 0.012 (0.000-0.034) ng/mL Coagulation 04/21/21 Range/Units 20:37 PT 11.8 (9.0-12.0) sec APTT 23.3 (22.0-30.0) sec CBC 04/21/21 Range/Units 20:37 WBC 6.5 (3.8-10.6) k/uL RBC 4.68 (4.30-5.90) m/uL Hgb 15.9 (13.0-17.5) gm/dL Hct 44.8 (39.0-53.0) % Plt Count 129 L (150-450) k/uL Comprehensive Metabolic Panel 04/21/21 Range/Units 20:37 Sodium 139 (137-145) mmol/L Potassium 3.6 (3.5-5.1) mmol/L Chloride 100 (98-107) mmol/L Carbon Dioxide 28 (22-30) mmol/L BUN 10 (9-20) mg/dL Creatinine 0.83 (0.66-1.25) mg/dL Glucose 154 H (74-99) mg/dL Calcium 9.9 (8.4-10.2) mg/dL AST 73 H (17-59) U/L ALT 50 H (4-49) U/L Alkaline Phosphatase 134 H (38-126) U/L Total Protein 8.2 (6.3-8.2) g/dL Albumin 4.1 (3.5-5.0) g/dL Current Medications Generic Name Dose Route Start Last Admin Trade Name Freq PRN Reason Stop Dose Admin Apixaban 5 mg 04/22/21 09:00 Apixaban 5 Mg Tab PO BID [facility] Protocol Ketorolac Tromethamine 15 mg 04/21/21 22:31 Ketorolac 30 Mg/Ml 1 Ml Vial IVP 04/24/21 22:34 Q6HR PRN Moderate Pain Lorazepam 1 mg 04/21/21 22:30 Lorazepam 2 Mg/Ml Inj IV Q2HR PRN CIWA 8 or 9 Lorazepam 1 mg 04/21/21 22:30 Lorazepam 2 Mg/Ml Inj IV Q1HR PRN CIWA 10 to 15 Lorazepam 2 mg 04/21/21 22:30 Lorazepam 2 Mg/Ml Inj IV 04/23/21 22:30 Q10M PRN CIWA 16 or higher Metoprolol Succinate 100 mg 04/22/21 09:00 Metoprolol Succinate (Er) 100 Mg Tab.Er.24h PO DAILY [facility] Morphine Sulfate 4 mg 04/21/21 22:31 Morphine Sulfate 4 Mg/Ml Syringe IV Q4HR PRN Severe Pain Naloxone HCl 0.2 mg 04/21/21 22:31 Naloxone 0.4 Mg/Ml 1 Ml Vial IV Q2M PRN Opioid Reversal Tamsulosin HCl 0.4 mg 04/22/21 09:00 Tamsulosin 0.4 Mg Cap.Er.24h PO DAILY [facility] Thiamine HCl 100 mg 04/22/21 07:30 Thiamine 100 Mg Tab PO BID-W/MEALS [facility] Intake and Output 04/21/21 04/22/21 04/22/21 22:59 06:59 14:59 Output Total 0 Balance 0 Output: Emesis 0 Other: Weight 97.522 kg 97.522 kg 04/21/21 20:37 04/21/21 20:37
--- NOTE | 2021-04-23 13:52 | HP ---
HISTORY AND PHYSICAL CHIEF COMPLAINT: Chest pain, hypertension, alcoholism. HISTORY OF PRESENT ILLNESS: This gentleman has longstanding history of severe hypertension and coronary artery disease. He also drinks heavily. He has a poor history of taking his medications as prescribed as well. He came in the emergency room complaining of chest pain. His blood pressure is high. Alcohol level was 0. REVIEW OF SYSTEMS: He has had no diaphoresis, focal neurologic deficits, etc. Past medical history, family history and personal and social histories can all be found in previous admitting and discharge summaries. PHYSICAL EXAMINATION: Blood pressure is 166/102 with a pulse of 71, respirations of 18. He is afebrile. In general he appeared to be well developed, well nourished, no acute distress. Skin color is normal skin is warm, dry. Lymph nodes are not enlarged. Head, ears, eyes, nose, mouth and throat were normal. Neck veins not distended. Thyroid not enlarged. Chest is clear. Cardiac exam is normal. Abdomen is soft, nontender. Extremities are normal. Neurological: He is intact. IMPRESSION: He is admitted to the hospital with diagnoses: 1. Chest pain. 2. History of coronary artery disease. 3. Hypertension. 4. Alcoholism. PLAN: 1. Bedrest. 2. IV fluids. 3. She had serial EKGs and enzymes. 4. Cardiology consult. MMPREETHIL / RENAEN: [id number] /
--- NOTE | 2021-04-23 14:49 | DS ---
DISCHARGE SUMMARY DATE OF DISCHARGE: 04/22/2021 DATE OF ADMISSION: 04/21/2021 CHIEF COMPLAINT: Chest pain. HISTORY OF PRESENT ILLNESS AND PHYSICAL EXAMINATION: Details of this man's history and physical can be found in the initial workup. LABORATORY STUDIES: While he was in the hospital he had laboratory studies, details of which can be found in the laboratory section of his chart. COURSE IN THE HOSPITAL: After admission he was placed on bedrest, started his fluids and had serial EKGs and enzymes. He was seen by Cardiology. He did not have an acute ME and it was felt that he could be discharged. He will go home on his usual activity and diet and was admonished not to drink and to take his medications faithfully. FINAL DIAGNOSES: 1. Chest pain. 2. History of hypertension. 3. History of coronary artery disease. 4. Alcoholism. OPERATIONS: None. CONSULTATION: Cardiology. He is improved. MMODL / RENAEN: [id number] /
== END 2021-04-22 12:20 | disposition home or self-care (01) ==
LOC: EC 20:10 → INTOOBSV 22:32 → 6NMEDSUR 22:32
PROVIDERS: ADMIT Family Medicine; ATTEND Family Medicine
DX: R07.89 Other chest pain (principal); I10 Essential (primary) hypertension; I25.10 Atherosclerotic heart disease of native coronary artery without angina pectoris; F10.20 Alcohol dependence, uncomplicated; R61 Generalized hyperhidrosis; R11.0 Nausea; R10.9 Unspecified abdominal pain; R00.0 Tachycardia, unspecified; R25.1 Tremor, unspecified; R74.01 Elevation of levels of liver transaminase levels; R79.89 Other specified abnormal findings of blood chemistry; E55.9 Vitamin D deficiency, unspecified; E78.5 Hyperlipidemia, unspecified; E11.9 Type 2 diabetes mellitus without complications; J44.9 Chronic obstructive pulmonary disease, unspecified; I48.0 Paroxysmal atrial fibrillation; H91.90 Unspecified hearing loss, unspecified ear; K21.9 Gastro-esophageal reflux disease without esophagitis; K74.60 Unspecified cirrhosis of liver; K76.6 Portal hypertension; K57.90 Diverticulosis of intestine, part unspecified, without perforation or abscess without bleeding; R60.9 Edema, unspecified; M50.30 Other cervical disc degeneration, unspecified cervical region; D50.9 Iron deficiency anemia, unspecified; D69.6 Thrombocytopenia, unspecified; G89.29 Other chronic pain; M54.31 Sciatica, right side; N42.9 Disorder of prostate, unspecified; F41.9 Anxiety disorder, unspecified; F32.A Depression, unspecified; Z20.822 Contact with and (suspected) exposure to COVID-19; Z88.8 Allergy status to other drugs, medicaments and biological substances; Z86.73 Personal history of transient ischemic attack (TIA), and cerebral infarction without residual deficits; Z86.711 Personal history of pulmonary embolism; Z86.19 Personal history of other infectious and parasitic diseases; Z87.19 Personal history of other diseases of the digestive system; Z87.01 Personal history of pneumonia (recurrent); Z90.49 Acquired absence of other specified parts of digestive tract; Z79.899 Other long term (current) drug therapy; Z79.01 Long term (current) use of anticoagulants; Z91.012 Allergy to eggs; Z91.040 Latex allergy status; Z91.018 Allergy to other foods; Z91.048 Other nonmedicinal substance allergy status; Z82.49 Family history of ischemic heart disease and other diseases of the circulatory system; Z82.3 Family history of stroke; Z82.5 Family history of asthma and other chronic lower respiratory diseases; Z81.8 Family history of other mental and behavioral disorders
CPT/HCPCS: 96372; 96374; 96375 ×2; 99285; 36415; 93005; 80053; 84443; 82150; 83690; 83735; 84484 ×2; 85025; 85610; 85730; 87635; 71046; 71275; G0378; G0480; J2060; J2270; J3411; J2405; J1885; J3475; Q9967; 80320

== ENCOUNTER 2021-05-25 10:25 | Inpatient (IN) | payer MEDICARE, OTHER ==
[2021-05-25] MEDS ORDERED: DILTIAZEM DRIP BOLUS FROM BAG 1 MG SOLN IV ONE (11:09)
[2021-05-25] MEDS ORDERED: ASPIRIN 81 MG PO STA (11:09)
[2021-05-25] MEDS ORDERED: SODIUM CHLORIDE 0.9% 1,000 ML IV STA (11:09)
--- NOTE | 2021-05-25 11:14 | ED ---
General Adult HPI - General Chief complaint: Arrhythmia/Palpitations Stated complaint: tachycardia Time Seen by Provider: 05/25/21 10:39 Source: patient, EMS, RN notes reviewed Mode of arrival: EMS Limitations: no limitations - History of Present Illness Initial comments: Patient is a pleasant [age]-year-old male presenting to the emergency Department with complaints of palpitations and rapid heart rate. Symptoms have been occurring for the past few days. Patient does have history of similar symptoms previously associated with his atrial fibrillation. Patient did have some chest discomfort this morning, that has resolved. No dyspnea. No nausea vomiting. No diaphoresis. Patient is on anticoagulation. - Related Data Home Medications Medication Instructions Recorded Confirmed Folic Acid 1 mg PO DAILY 01/07/20 04/21/21 Tamsulosin [Flomax] 0.4 mg PO DAILY 01/07/20 04/21/21 traZODone HCL 50 mg PO HS PRN 01/07/20 04/21/21 Ergocalciferol [Vitamin D2 (1250 1,250 mcg PO Q30D 10/30/20 04/21/21 Mcg = 62692 Iu)] Naproxen 500 mg PO BID PRN 10/30/20 04/21/21 Doxazosin [Cardura] 1 mg PO DAILY 03/02/21 04/21/21 Omeprazole 20 mg PO DAILY 03/02/21 04/21/21 Potassium Chloride ER [K-Dur 20] 20 meq PO BID 03/02/21 04/21/21 HYDROcodone/APAP 5-325MG [[place] 1 tab PO Q6H PRN 04/01/21 04/21/21 5-325] Previous Rx's Medication Instructions Recorded Ferrous Sulfate [Iron (65 MG 325 mg PO DAILY #30 tab 06/07/19 Elemental)] Sucralfate [Carafate] 1 gm PO AC-TID #90 tablet 06/07/19 Apixaban [Eliquis] 5 mg PO BID #60 tab 03/04/21 Metoprolol Succinate (ER) [Toprol 100 mg PO DAILY #30 tablet 03/04/21 XL] Thiamine [Vitamin B-1] 100 mg PO BID-W/MEALS #60 tab 03/04/21 Magnesium Oxide [Mag-Ox] 400 mg PO BID #60 tab 04/03/21 Atorvastatin [Lipitor] 40 mg PO DAILY 30 Days #30 tab 04/22/21 Losartan [Cozaar] 150 mg PO DAILY 30 Days #90 tab 04/24/21 Allergies Allergy/AdvReac Type Severity Reaction Status Date / Time adhesive tape Allergy Rash/Hives Verified 05/25/21 12:58 latex Allergy Unknown Verified 05/25/21 12:58 egg AdvReac Nausea & Verified 05/25/21 12:58 Vomiting lisinopril AdvReac EYES Verified 05/25/21 12:58 BURN&ITCH/WEAKNESS tomato AdvReac Nausea & Verified 05/25/21 12:58 Vomiting & Diarrhea Review of Systems ROS Statement: Those systems with pertinent positive or pertinent negative responses have been documented in the HPI. ROS Other: All systems not noted in ROS Statement are negative. Constitutional: Denies: fever Eyes: Denies: eye pain ENT: Denies: ear pain Respiratory: Denies: dyspnea Cardiovascular: Reports: chest pain, palpitations Endocrine: Denies: fatigue Gastrointestinal: Denies: abdominal pain Genitourinary: Reports: other (Patient has had incontinence issues that he attributes to his prostate problems.) Musculoskeletal: Denies: back pain Skin: Denies: rash Neurological: Denies: headache Past Medical History Past Medical History: Atrial Fibrillation, Chest Pain / Angina, COPD, CVA/TIA, Diabetes Mellitus, GERD/Reflux, GI Bleed, Hearing Disorder / Deafness, Hyperlipidemia, Hypertension, Liver Disease, Pneumonia, Prostate Disorder, Pulmonary Embolus (PE) Additional Past Medical History / Comment(s): GI bleed/ esophageal varicies banded. Other hx: Alcoholism, alcohol withdrawal DTs and possibly a seizure in 2018 r/t withdrawal, chronic alcoholic cirrhosis with portal hypertension and previous history of upper and lower GI bleeding, esophageal varices, previous history of childhood seizure which he outgrew not taking any antiepileptic medication, pulmonary embolism x 2 R lung, TIA, diverticulosis, chronic lower bilateral extremity ankle edema if he walks a lot, previous history of septicemia, cervical disc disease, chronic neck pain, chronic back pain with r sided sciatica, degenerative arthritis involving the lower back, scoliosis, tinnitus, vitamin D deficiency, iron anemia, chronic thrombocytopenia, denies MRSA, C-DIFF 4-2019 History of Any Multi-Drug Resistant Organisms: MRSA Date of last positivie culture/infection: 03/17/18 MDRO Source:: stomach Past Surgical History: Appendectomy, Cholecystectomy Additional Past Surgical History / Comment(s): EGDs/esophageal varicies bandings, colonoscopies. Past Anesthesia/Blood Transfusion Reactions: No Reported Reaction Additional Past Anesthesia/Blood Transfusion Reaction / Comment(s): after appendix removed sob Past Psychological History: Anxiety, Depression Additional Psychological History / Comment(s): PATIENT LIVES IN APARTMENT ALONE, STATES USES A CANE. [place] [employer] [place]. 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 His left him many years ago he has adult children that he does not see very often. No experience Smoking Status: Never smoker Past Alcohol Use History: Abuse Additional Past Alcohol Use History / Comment(s): Pt states he binged 1-2 pints of liquor every day 2 months ago. Past Drug Use History: None Reported - Past Family History Mother Family Medical History: COPD, CVA/TIA, Dementia Additional Family Medical History / Comment(s): from a stroke Father Family Medical History: Pneumonia Additional Family Medical History / Comment(s): Father of pneumonia when he was close to 80 yrs old. General Exam Limitations: no limitations General appearance: alert, in no apparent distress Head exam: Present: normocephalic Eye exam: Present: normal appearance Neck exam: Present: normal inspection Respiratory exam: Present: normal lung sounds bilaterally Cardiovascular Exam: Present: tachycardia Expanded Peripheral pulses: 2+: Radial (R), Radial (L), Posterior Tibialis (R), Posterior Tibialis (L) GI/Abdominal exam: Present: soft. Absent: tenderness Extremities exam: Present: normal inspection. Absent: pedal edema, calf tenderness Neurological exam: Present: alert Psychiatric exam: Present: normal affect, normal mood Skin exam: Present: normal color Course Vital Signs 05/25/21 05/25/21 05/25/21 10:28 10:40 12:59 Temperature 98.5 F Pulse Rate 141 H 138 H Pulse Rate [ 144 H Pulse Oximetery ] Respiratory 16 18 Rate Blood Pressure 161/107 174/96 O2 Sat by Pulse 94 L 93 L Oximetry - Reevaluation(s) Reevaluation #1: 05/25/21 11:32 Repeat EKG shows sinus tachycardia rate 142. ID 134. QRS 62. QT 354. QTC 544. Normal axis. LVH criteria. No acute ST change. 05/25/21 13:45 EKG 3 shows narrow complex tachycardia with rate of 136. ID 144. QRS 70. QT 328. QTC 493. Normal axis. Normal QRS. No acute ST change. EKG Findings - EKG Comments: EKG Findings:: Sinus tachycardia with rate of 143. ID 132. QRS 70. QT 32. QTC 435. Normal axis. LVH criteria. No acute ST change. Medical Decision Making - Medical Decision Making Patient reevaluated. Heart rate remains unchanged around 144. Patient is on cardiac care unit nurse with a rate of 144. Patient placed on monitor secondary to arrhythmia and to monitor. Monitor is suspicious for atrial fibrillation. Repeat EKG will be ordered. Case was discussed in detail with Dr. Beck who is familiar with this patient and will admit with cardiology consult. - Lab Data Result diagrams: 05/25/21 11:34 05/25/21 12:41 Lab Results 05/25/21 05/25/21 05/25/21 Range/Units 11:34 11:34 11:34 WBC 5.6 (3.8-10.6) k/uL RBC 4.41 (4.30-5.90) m/uL Hgb 14.9 (13.0-17.5) gm/dL Hct 44.0 (39.0-53.0) % MCV 99.7 (80.0-100.0) fL MCH 33.7 (25.0-35.0) pg MCHC 33.8 (31.0-37.0) g/dL RDW 14.1 (11.5-15.5) % Plt Count 129 L (150-450) k/uL MPV 8.6 Neutrophils % 48 % Lymphocytes % 42 % Monocytes % 7 % Eosinophils % 1 % Basophils % 1 % Neutrophils # 2.7 (1.3-7.7) k/uL Lymphocytes # 2.3 (1.0-4.8) k/uL Monocytes # 0.4 (0-1.0) k/uL Eosinophils # 0.1 (0-0.7) k/uL Basophils # 0.0 (0-0.2) k/uL PT 11.3 (9.0-12.0) sec INR 1.1 (<1.2) APTT 22.0 (22.0-30.0) sec Sodium (137-145) mmol/L Potassium (3.5-5.1) mmol/L Chloride (98-107) mmol/L Carbon Dioxide (22-30) mmol/L Anion Gap mmol/L BUN (9-20) mg/dL Creatinine (0.66-1.25) mg/dL Est GFR (CKD-EPI)AfAm (>60 ml/min/1.73 sqM) Est GFR (CKD-EPI)NonAf (>60 ml/min/1.73 sqM) Glucose (74-99) mg/dL Calcium (8.4-10.2) mg/dL Magnesium (1.6-2.3) mg/dL Total Bilirubin (0.2-1.3) mg/dL AST (17-59) U/L ALT (4-49) U/L Alkaline Phosphatase (38-126) U/L Troponin I 0.018 (0.000-0.034) ng/mL Total Protein (6.3-8.2) g/dL Albumin (3.5-5.0) g/dL Free T4 (0.78-2.19) ng/dL Free T3 pg/mL (2.8-5.3) pg/ml 05/25/21 Range/Units 12:41 WBC (3.8-10.6) k/uL RBC (4.30-5.90) m/uL Hgb (13.0-17.5) gm/dL Hct (39.0-53.0) % MCV (80.0-100.0) fL MCH (25.0-35.0) pg MCHC (31.0-37.0) g/dL RDW (11.5-15.5) % Plt Count (150-450) k/uL MPV Neutrophils % % Lymphocytes % % Monocytes % % Eosinophils % % Basophils % % Neutrophils # (1.3-7.7) k/uL Lymphocytes # (1.0-4.8) k/uL Monocytes # (0-1.0) k/uL Eosinophils # (0-0.7) k/uL Basophils # (0-0.2) k/uL PT (9.0-12.0) sec INR (<1.2) APTT (22.0-30.0) sec Sodium 143 (137-145) mmol/L Potassium 4.5 (3.5-5.1) mmol/L Chloride 109 H (98-107) mmol/L Carbon Dioxide 20 L (22-30) mmol/L Anion Gap 14 mmol/L BUN 13 (9-20) mg/dL Creatinine 0.76 (0.66-1.25) mg/dL Est GFR (CKD-EPI)AfAm >90 (>60 ml/min/1.73 sqM) Est GFR (CKD-EPI)NonAf >90 (>60 ml/min/1.73 sqM) Glucose 115 H (74-99) mg/dL Calcium 8.3 L (8.4-10.2) mg/dL Magnesium 1.5 L (1.6-2.3) mg/dL Total Bilirubin 1.1 (0.2-1.3) mg/dL AST 91 H (17-59) U/L ALT 51 H (4-49) U/L Alkaline Phosphatase 111 (38-126) U/L Troponin I (0.000-0.034) ng/mL Total Protein 7.8 (6.3-8.2) g/dL Albumin 3.9 (3.5-5.0) g/dL Free T4 1.21 (0.78-2.19) ng/dL Free T3 pg/mL 3.1 (2.8-5.3) pg/ml - Radiology Data Radiology results: image reviewed (Chest x-ray does not reveal acute process) Critical Care Time Critical Care Time: Yes Total Critical Care Time: 32 Disposition Clinical Impression: Dysrhythmia Disposition: ADMITTED IP TO THIS HOSP Is patient prescribed a controlled substance at d/c from ED?: No Referrals: Doug Beck MD [Primary Care Provider] - 1-2 days Decision Time: 13:44
[2021-05-25 11:40] LABS: Basophils % (A) 1 %; Eosinophils # (A) 0.1 k/uL (0-0.7); Eosinophils % (A) 1 %; HGB 14.9 gm/dL (13.0-17.5); Lymphocytes # (A) 2.3 k/uL (1.0-4.8); Lymphocytes % (A) 42 %; MCH 33.7 pg (25.0-35.0); MCHC 33.8 g/dL (31.0-37.0); MCV 99.7 fL (80.0-100.0); Mean Platelet Volume 8.6; Monocytes # (A) 0.4 k/uL (0-1.0); Monocytes % (A) 7 %; Neutrophils # (A) 2.7 k/uL (1.3-7.7); Neutrophils % (A) 48 %; Platelet Count 129 k/uL (150-450); RBC 4.41 m/uL (4.30-5.90); RDW 14.1 % (11.5-15.5); WBC 5.6 k/uL (3.8-10.6)
[2021-05-25] MEDS: DILTIAZEM 125 MG in SODIUM CHLORIDE 0.9% 100 ML IV SCH (11:48)
[2021-05-25 11:56] LABS: INR 1.1 (<1.2); Prothrombin Time 11.3 sec (9.0-12.0)
--- NOTE | 2021-05-25 12:34 | XR ---
EXAMINATION TYPE: XR chest 2V DATE OF EXAM: 05/25/2021 COMPARISON: Chest x-ray April 21, 2021 HISTORY: Dysrhythmia and fever. TECHNIQUE: Frontal and lateral views of the chest are obtained. FINDINGS: There is some chronic parenteral change bilaterally without suspicious new focal air space opacity, pleural effusion, or pneumothorax seen. The cardiac silhouette size is stable and within n ormal limits. Deformity and sclerosis left humeral head partially imaged. IMPRESSION: Chronic changes without acute pulmonary process.
[2021-05-25 13:03] LABS: ALT 51 U/L (4-49); AST 91 U/L (17-59); African American GFR (CKD) >90 (>60 ml/min/1.73 sqM); Albumin 3.9 g/dL (3.5-5.0); Alkaline Phosphatase 111 U/L (38-126); Anion Gap 14 mmol/L; Blood Urea Nitrogen 13 mg/dL (9-20); Calcium 8.3 mg/dL (8.4-10.2); Carbon Dioxide 20 mmol/L (22-30); Chloride 109 mmol/L (98-107); Glucose 115 mg/dL (74-99); Magnesium 1.5 mg/dL (1.6-2.3); Non-African American GFR(CKD) >90 (>60 ml/min/1.73 sqM); Sodium 143 mmol/L (137-145); Total Bilirubin 1.1 mg/dL (0.2-1.3); Total Protein 7.8 g/dL (6.3-8.2)
[2021-05-25 13:04] LABS: Potassium 4.5 mmol/L (3.5-5.1)
[2021-05-25 13:18] LABS: T4, Free (Free Thyroxine) 1.21 ng/dL (0.78-2.19)
[2021-05-25] MEDS ORDERED: NALOXONE 0.4 MG/ML 1 ML VIAL IV PRN (13:45)
[2021-05-25] MEDS ORDERED: METOCLOPRAMIDE 5 MG/ML 2 ML VIAL IVP STA (15:16)
[2021-05-25] MEDS ORDERED: MAGNESIUM SULFATE-D5W PMX 1 GM in DEXTROSE/WATER 1 100ML.BAG IVPB ONE (15:57)
[2021-05-25] MEDS ORDERED: LORazepam 2 MG/ML INJ IV STA (15:58)
[2021-05-26] MEDS: DILTIAZEM 125 MG in SODIUM CHLORIDE 0.9% 100 ML IV SCH (08:04)
[2021-05-26] MEDS ORDERED: HEPARIN SODIUM 1,000 UN/ML (10ML VL) IV ONE (08:17)
[2021-05-26] MEDS ORDERED: HEPARIN SODIUM 1,000 UN/ML (10ML VL) IV PRN (08:17)
[2021-05-26] MEDS ORDERED: DILTIAZEM 125 MG in SODIUM CHLORIDE 0.9% 100 ML IV SCH ×2 (08:21→14:00)
[2021-05-26] MEDS ORDERED: HEPARIN SOD,PORK IN 0.45% NACL 25,000 UNIT in 0.45% NACL 1 250ML.BAG IV SCH (08:30)
[2021-05-26] MEDS ORDERED: APIXABAN 5 MG TAB PO SCH (09:00)
[2021-05-26] MEDS ORDERED: PANTOPRAZOLE 40 MG/10 ML VIAL IV SCH (09:00)
[2021-05-26] MEDS: ATORVASTATIN 40 MG TAB PO SCH (09:06)
[2021-05-26] MEDS: METOPROLOL SUCCINATE (ER) 100 MG TAB.ER.24H PO SCH ×2 (09:06→20:50)
[2021-05-26] MEDS: LOSARTAN 50 MG TAB PO SCH (09:06)
[2021-05-26] MEDS ORDERED: traZODone HCL 50 MG TAB PO PRN (09:24)
--- NOTE | 2021-05-26 09:53 | CT ---
EXAMINATION TYPE: CT angio chest DATE OF EXAM: 05/26/2021 COMPARISON: CTA chest April 01, 2021 and older studies HISTORY: Elevated d-dimer, stomach pains CT DLP: 532.6 mGycm. Automated Exposure Control for Dose Reduction was Utilized. CONTRAST: CTA scan of the thorax is performed with IV Contrast, patient injected with 100, wasted 12 ml mL of I sovue 370, pulmonary embolism protocol. MIP Images are created on CT scanner and reviewed. 3D recon structed images are created on an independent workstation and reviewed. FINDINGS: LUNGS: Exam degraded by motion as patient unable to hold breath. Mild underlying emphysematous change s redemonstrated. Peripheral reticulation is again seen with areas of groundglass opacity favoring ed ralph and/or atelectasis slightly more prominent on current study versus prior. No new focal consolidat ion. No pleural effusion or pneumothorax seen bilaterally MEDIASTINUM: There is suboptimal study with fecal contrast in the aorta. Ascending aorta measures up to 3.5 cm in diameter. Adjacent main pulmonary artery measures 3.2 cm in diameter suggesting underlyi ng pulmonary artery hypertension. Some heterogeneity in the periphery but no convincing CT evidence f or acute pulmonary embolism. Mild cardiomegaly. There are no greater than 1 cm hilar or mediastinal lymph nodes. No pericardial effusion is seen. OTHER: Small size hiatal hernia redemonstrated. Liver is heterogeneously low dense with lobulated per ipheral contour suggesting underlying cirrhosis. Cholecystectomy clips are redemonstrated. There is n onspecific 1.1 cm enhancing lesion in the anterior superior spleen axial image 118 favoring benign he mangioma. Exaggerated thoracic kyphosis with moderate multilevel spurring in the spine. IMPRESSION: 1. Suboptimal study without acute pulmonary embolism. 2. Mild Chronic emphysematous change. CHF exacerbation is suspected as there is mild cardiomegaly wit h mild alveolar and interstitial edema thought present bilaterally. Correlate clinically.
[2021-05-26 10:06] LABS: INR 1.2 (<1.2); Partial Thromboplastin Time 23.4 sec (22.0-30.0); Prothrombin Time 12.2 sec (9.0-12.0)
[2021-05-26 10:17] LABS: Basophils % (A) 0 %; Eosinophils % (A) 0 %; HCT 44.8 % (39.0-53.0); HGB 14.5 gm/dL (13.0-17.5); Lymphocytes # (A) 0.8 k/uL (1.0-4.8); Lymphocytes % (A) 18 %; MCH 33.3 pg (25.0-35.0); MCHC 32.3 g/dL (31.0-37.0); MCV 103.1 fL (80.0-100.0); Macrocytosis Slight; Mean Platelet Volume 7.7; Monocytes # (A) 0.3 k/uL (0-1.0); Monocytes % (A) 6 %; Neutrophils # (A) 3.2 k/uL (1.3-7.7); Neutrophils % (A) 75 %; RBC 4.34 m/uL (4.30-5.90); RDW 14.8 % (11.5-15.5); WBC 4.3 k/uL (3.8-10.6)
--- NOTE | 2021-05-26 11:29 | P.CRDCN ---
History of Present Illness History of present illness: HISTORY OF PRESENT ILLNESS: This is a 66-year-old male with a past medical history significant for alcohol abuse, type 2 diabetes, COPD, TIA, and paroxysmal atrial fibrillation (on eliquis) diagnosed 03/2021 per patient. 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 We have been asked to see the patient in consultation for atrial fibrillation with RVR. Patient presents to the emergency department with complaints of palpitations, abdominal pain, nausea, and headache. He also is having Abdominal tenderness to LUQ with palpation to the area. On Admission, patient was tachycardic, in sinus tachycardia heart rate in the [id number]. No atrial fibrillation noted. He denies shortness of breath, lightheadedness, dizziness, syncope or near syncope. He denies orthopnea or PND. He denies tobacco use or illicit drug use. He does endorse drinking heavily 2 months ago. He states he has not had a drink in about 2 months. Patient's blood alcohol level 107 on admission. He denies history of coronary artery disease or AR. Family history includes grandmother had an AR. He states he has missed doses of his Eliquis, he ran out because he was told his copay was $90/month and he could not afford this. Patient was recently admitted 04/01/2021 and 04/21/21 with chest pain. [facility] evaluated the patient both times. He underwent Lexiscan stress test 04/03/21 which was negative for reversible ischemia. Stress EKG ejection fraction of 61% and resting only 34%. However Echocardiogram 04/02/2021 was completed revealing ejection fraction 55-60%, trace mitral regurgitation, and trace tricuspid regurgitation. DIAGNOSTICS: -EKG reveals sinus tachycardia, heart rate 136, no significant ST-T wave abnormalities. -Telemetry reviewed patient is maintaining sinus mechanism heart rate [id number] -Chest xray chronic changes without any acute pulmonary process. -CTA negative for pulmonary embolism -Laboratory data: Troponin negative 3. Sodium 143, potassium 4.5, BUN 13, serum creatinine 0.7, magnesium 1.5, AST 91, ALT 51, serum alcohol 107, d-dimer 0.9, INR 1.2, COVID-19 negative. Free T3 and T4 within normal limits -Most recent echocardiogram 04/02/2021 ejection fraction 55-60%, trace mitral regurgitation, and trace tricuspid regurgitation. -Lexiscan stress test 04/03/2021- negative -Current home medications, Eliquis 5mg BID, Magnesium oxide 400mg BID, metoprolol succinate 100mg daily, thiamine, trazodone, carafate, omeprazole, [place] PRN REVIEW OF SYSTEMS: At the time of my exam: CONSTITUTIONAL: Denies fever or chills. HEENT: Denies blurred vision, vision changes, or eye pain. Denies hemoptysis CARDIOVASCULAR: Denies chest pain. Denies orthopnea. Denies PND. Reports palpitations RESPIRATORY: Denies shortness of breath. Reports cough. GASTROINTESTINAL: +abdominal pain. +nausea. Denies vomiting HEMATOLOGIC: Denies bleeding disorders. GENITOURINARY: Denies any blood in urine. SKIN: Denies pruitis. Denies rash. PHYSICAL EXAM: VITAL SIGNS: Reviewed. GENERAL: Well-developed in no acute distress. HEENT: Head is normocephalic. Pupils are equal, round. Sclerae anicteric. Mucous membranes of the mouth are moist. Neck supple. No JVD or thyromegaly LUNGS: Respirations even and unlabored. Lungs diminished to auscultation bilaterally. Frequent coughing noted. HEART: Regular rate and rhythm. S1 and S2 heard. ABDOMEN: Soft. Nondistended. Nontender. EXTREMITIES: Normal range of motion. No clubbing or cyanosis. Peripheral pulses intact. No lower extremity edema NEUROLOGIC: Awake and alert. Oriented x 3. ASSESSMENT: Sinus Tachycardia Abdominal pain, nausea, Headache Paroxysmal atrial fibrillation, diagnosed by his PCP per patient, on Eliquis Hypertension COPD TIA Type 2 Diabetes History of alcohol abuse Hypomagnesemia Elevated LFTs Dyslipidemia PLAN: -Patient is not in atrial fibrillation with RVR, he is in sinus tachycardia. Recommend treating cause of sinus tachycardia. Patient with elevated D-Dimer, CTA negative for pulmonary embolism. Tachycardia could be possibly related to patient's alcohol use. -We will wean off Cardizem drip. Increase metoprolol succinate to 100mg BID -Case management consulted for anticoagulation coverage. Per case management patient has Medicaid and Eliquis is covered or $4/month. We will restart patient's Eliquis 5mg BID -Continue statin and losartan 150 mg daily Nurse practitioner note has been reviewed by physician. Signing provider agrees with the documented findings, assessment, and plan of care. Past Medical History Past Medical History: Atrial Fibrillation, Chest Pain / Angina, COPD, CVA/TIA, Diabetes Mellitus, GERD/Reflux, GI Bleed, Hearing Disorder / Deafness, Hyperlipidemia, Hypertension, Liver Disease, Pneumonia, Prostate Disorder, Pulmonary Embolus (PE) Additional Past Medical History / Comment(s): GI bleed/ esophageal varicies banded. Other hx: Alcoholism, alcohol withdrawal DTs and possibly a seizure in 2018 r/t withdrawal, chronic alcoholic cirrhosis with portal hypertension and previous history of upper and lower GI bleeding, esophageal varices, previous history of childhood seizure which he outgrew not taking any antiepileptic medication, pulmonary embolism x 2 R lung, TIA, diverticulosis, chronic lower bilateral extremity ankle edema if he walks a lot, previous history of septicemia, cervical disc disease, chronic neck pain, chronic back pain with r sided sciatica, degenerative arthritis involving the lower back, scoliosis, tinnitus, vitamin D deficiency, iron anemia, chronic thrombocytopenia, denies MRSA, C-DIFF -2018 History of Any Multi-Drug Resistant Organisms: MRSA Date of last positivie culture/infection: 03/17/18 MDRO Source:: stomach Past Surgical History: Appendectomy, Cholecystectomy Additional Past Surgical History / Comment(s): EGDs/esophageal varicies bandings, colonoscopies. Past Anesthesia/Blood Transfusion Reactions: No Reported Reaction Additional Past Anesthesia/Blood Transfusion Reaction / Comment(s): after appendix removed sob Past Psychological History: Anxiety, Depression Additional Psychological History / Comment(s): PATIENT LIVES IN APARTMENT ALONE, STATES USES A CANE. [facility]. Used to work in [employer]-pl[employer]. His left him many years ago he has adult children that he does not see very often. No experience Smoking Status: Never smoker Past Alcohol Use History: Abuse Additional Past Alcohol Use History / Comment(s): Pt states he binged 1-2 pints of liquor every day 2 months ago. Past Drug Use History: None Reported - Past Family History Mother Family Medical History: COPD, CVA/TIA, Dementia Additional Family Medical History / Comment(s): from a stroke Father Family Medical History: Pneumonia Additional Family Medical History / Comment(s): Father of pneumonia when he was close to 80 yrs old. Medications and Allergies Home Medications Medication Instructions Recorded Confirmed Type Ferrous Sulfate [Iron (65 MG 325 mg PO DAILY #30 tab 06/07/19 05/25/21 Rx Elemental)] Sucralfate [Carafate] 1 gm PO AC-TID #90 tablet 06/07/19 05/25/21 Rx Folic Acid 1 mg PO DAILY 01/07/20 05/25/21 History Tamsulosin [Flomax] 0.4 mg PO DAILY 01/07/20 05/25/21 History traZODone HCL 50 mg PO HS PRN 01/07/20 05/25/21 History Ergocalciferol [Vitamin D2 (1250 1,250 mcg PO Q30D 10/30/20 05/25/21 History Mcg = 73254 Iu)] Naproxen 500 mg PO BID PRN 10/30/20 05/25/21 History Doxazosin [Cardura] 1 mg PO DAILY 03/02/21 05/25/21 History Omeprazole 20 mg PO DAILY 03/02/21 05/25/21 History Potassium Chloride ER [K-Dur 20] 20 meq PO BID 03/02/21 05/25/21 History Apixaban [Eliquis] 5 mg PO BID #60 tab 03/04/21 05/25/21 Rx Metoprolol Succinate (ER) [Toprol 100 mg PO DAILY #30 tablet 03/04/21 05/25/21 Rx XL] Thiamine [Vitamin B-1] 100 mg PO BID-W/MEALS #60 tab 03/04/21 05/25/21 Rx HYDROcodone/APAP 5-325MG [[place] 1 tab PO Q6H PRN 04/01/21 05/25/21 History 5-325] Magnesium Oxide [Mag-Ox] 400 mg PO BID #60 tab 04/03/21 05/25/21 Rx Atorvastatin [Lipitor] 40 mg PO DAILY 30 Days #30 tab 04/22/21 05/25/21 Rx Losartan [Cozaar] 150 mg PO DAILY 30 Days #90 tab 04/24/21 05/25/21 Rx Allergies Allergy/AdvReac Type Severity Reaction Status Date / Time adhesive tape Allergy Rash/Hives Verified 05/25/21 13:59 latex Allergy Unknown Verified 05/25/21 13:59 egg AdvReac Nausea & Verified 05/25/21 13:59 Vomiting lisinopril AdvReac EYES Verified 05/25/21 13:59 BURN&ITCH/WEAKNESS tomato AdvReac Nausea & Verified 05/25/21 13:59 Vomiting & Diarrhea Physical Exam Vitals: Vital Signs Temp Pulse Pulse Resp BP Pulse Ox 05/26/21 06:20 113 H 13 174/79 94 L 05/26/21 04:25 112 H 16 94 L 05/26/21 02:51 114 H 18 169/77 96 05/26/21 00:45 98.6 F 126 H 18 176/83 96 05/25/21 23:21 98.7 F 133 H 18 177/102 95 05/25/21 22:33 98.4 F 128 H 18 165/101 96 05/25/21 19:46 98.9 F 131 H 18 151/98 96 05/25/21 17:50 127 H 20 155/87 95 05/25/21 16:05 126 H 18 161/95 95 05/25/21 15:03 130 H 14 155/93 94 L 05/25/21 14:00 135 H 16 122/92 94 L 05/25/21 12:59 138 H 18 174/96 93 L 05/25/21 10:40 98.5 F 141 H 16 161/107 94 L 05/25/21 10:28 144 H Intake and Output 05/25/21 05/25/21 05/26/21 14:59 22:59 06:59 Intake Total 6.083 Balance 6.083 Intake: Intake, IV Titration 6.083 Amount Diltiazem 125 mg In 6.083 Sodium Chloride 0.9% 100 ml @ 5 MG/HR 5 mls/hr IV .Q24H [facility] Rx#:[id number] Other: Weight 83.007 kg Results 05/26/21 09:09 05/25/21 12:41 Cardiac Enzymes 05/25/21 05/25/21 05/25/21 Range/Units 11:34 12:41 14:55 AST 91 H (17-59) U/L Troponin I 0.018 <0.012 (0.000-0.034) ng/mL 05/25/21 Range/Units 17:25 AST (17-59) U/L Troponin I 0.016 (0.000-0.034) ng/mL Coagulation 05/25/21 Range/Units 11:34 PT 11.3 (9.0-12.0) sec APTT 22.0 (22.0-30.0) sec CBC 05/25/21 Range/Units 11:34 WBC 5.6 (3.8-10.6) k/uL RBC 4.41 (4.30-5.90) m/uL Hgb 14.9 (13.0-17.5) gm/dL Hct 44.0 (39.0-53.0) % Plt Count 129 L (150-450) k/uL Comprehensive Metabolic Panel 05/25/21 Range/Units 12:41 Sodium 143 (137-145) mmol/L Potassium 4.5 (3.5-5.1) mmol/L Chloride 109 H (98-107) mmol/L Carbon Dioxide 20 L (22-30) mmol/L BUN 13 (9-20) mg/dL Creatinine 0.76 (0.66-1.25) mg/dL Glucose 115 H (74-99) mg/dL Calcium 8.3 L (8.4-10.2) mg/dL AST 91 H (17-59) U/L ALT 51 H (4-49) U/L Alkaline Phosphatase 111 (38-126) U/L Total Protein 7.8 (6.3-8.2) g/dL Albumin 3.9 (3.5-5.0) g/dL Current Medications Generic Name Dose Route Start Last Admin Trade Name Freq PRN Reason Stop Dose Admin Diltiazem HCl 125 mg/ Sodium 125 mls @ 5 mls/hr 05/25/21 11:15 05/25/21 13:01 Chloride IV 10 mg/hr .Q24H TANYA 10 mls/hr Infusion 5 MG/HR Naloxone HCl 0.2 mg 05/25/21 13:45 Naloxone 0.4 Mg/Ml 1 Ml Vial IV Q2M PRN Opioid Reversal Pantoprazole Sodium 40 mg 05/26/21 09:00 Pantoprazole 40 Mg/10 Ml Vial IV DAILY TANYA Intake and Output 05/25/21 05/25/21 05/26/21 14:59 22:59 06:59 Intake Total 6.083 Balance 6.083 Intake: Intake, IV Titration 6.083 Amount Diltiazem 125 mg In 6.083 Sodium Chloride 0.9% 100 ml @ 5 MG/HR 5 mls/hr IV .Q24H [facility] Rx#:[id number] Other: Weight 83.007 kg Patient Weight 05/26/21 06:59 Weight 83.007 kg 05/25/21 11:34 05/25/21 12:41
[2021-05-26] MEDS: DOXAZOSIN 1 MG TAB PO SCH (12:19)
[2021-05-26] MEDS: APIXABAN 5 MG TAB PO SCH ×2 (12:19→20:52)
[2021-05-26] MEDS: SUCRALFATE 1 GM TAB PO SCH ×2 (12:20→17:45)
[2021-05-26 12:30] LABS: Glucose,Whole Blood 160 mg/dL (75-99)
[2021-05-26 13:10] LABS: Anisocytosis (M) Present; Platelet Count 94 k/uL (150-450); Poikilocytosis (M) Present
[2021-05-26] MEDS: ONDANSETRON 4 MG/2 ML VIAL IVP PRN (14:28)
[2021-05-26] MEDS: ACETAMINOPHEN TAB 325 MG TAB PO PRN (14:28)
--- NOTE | 2021-05-26 17:31 | HP ---
HISTORY AND PHYSICAL CHIEF COMPLAINT: Chest pain, arrhythmia with rapid heart beating. HISTORY OF PRESENT ILLNESS: This is another of many admissions for this 66-year-old white male, chronic alcoholic. He also has a history of hypertension. When he drinks, which is most of the time, his blood pressure remains high. He presented to the emergency room with a pulse of around 170 as well. REVIEW OF SYSTEMS: He has had no fever, chills, sputum production, orthopnea, PND, etc. Past medical history, family history and personal and social histories are unremarkable and noncontributory and unchanged from his recent admitting and discharge summaries. MEDICATIONS: Include doxazosin, folic acid, metoprolol, Eliquis, omeprazole, Cozaar, metformin and sucralfate, tamsulosin, trazodone, Flexeril, iron, and Vicodin. ALLERGIES: He is ALLERGIC to CHRIS inhibitors. The remainder of his history is unremarkable except for his heavy alcohol consumption. PHYSICAL EXAMINATION: Blood pressure is 135/90 with a pulse of 150. He is afebrile. In general, he appeared to be in no acute distress. Skin color is normal. Skin is warm, dry. Lymph nodes are not enlarged. Head, ears, eyes, nose, mouth and throat were normal. Neck veins not distended. Thyroid not enlarged. Chest is clear. Cardiac exam demonstrates tachycardia. Abdomen is soft and nontender. Extremities: Normal. Neurological: He is intact. IMPRESSION: 1. Tachycardia. 2. Chest pain. 3. History of coronary artery disease. 4. Hypertension. 5. Alcoholism. PLAN: 1. Bedrest. 2. IV fluids. 3. Telemetry. 4. Blood alcohol level. MMODL / IJN: [id number] /
[2021-05-26] MEDS: THIAMINE 100 MG TAB PO SCH (17:45)
--- NOTE | 2021-05-26 18:01 | PN ---
PROGRESS NOTE DATE OF SERVICE: 05/26/2021 CHIEF COMPLAINT: Tachycardia and alcoholism. HISTORY OF PRESENT ILLNESS: This gentleman is more stable. Pulse is coming down. PHYSICAL EXAMINATION: His chest is clear. The cardiac exam demonstrates sinus rhythm with tachycardia. The abdomen is soft and non-tender. IMPRESSION: 1. Tachycardia. 2. Chest pain. 3. Alcoholism. PLAN: Continue to monitor heart rate and increase activity. Progress diet. MMODL / IJN: [id number] /
[2021-05-27 04:32] VITALS: RESP 18
[2021-05-27] MEDS: THIAMINE 100 MG TAB PO SCH (06:36)
[2021-05-27] MEDS: SUCRALFATE 1 GM TAB PO SCH ×2 (06:36→13:04)
[2021-05-27] MEDS ORDERED: PANTOPRAZOLE 40 MG TABLET PO SCH (07:30)
[2021-05-27] MEDS: LOSARTAN 50 MG TAB PO SCH (08:48)
[2021-05-27] MEDS: APIXABAN 5 MG TAB PO SCH (08:49)
[2021-05-27] MEDS: METOPROLOL SUCCINATE (ER) 100 MG TAB.ER.24H PO SCH (08:49)
[2021-05-27] MEDS: ATORVASTATIN 40 MG TAB PO SCH (08:49)
[2021-05-27] MEDS: DOXAZOSIN 1 MG TAB PO SCH (08:51)
[2021-05-27 08:54] VITALS: TEMP 98.3
[2021-05-27] MEDS ORDERED: NON FORMULARY DRUG (Omeprazole [Omeprazole] 20 MG Capsule) PO SCH (09:00)
--- NOTE | 2021-05-27 10:33 | P.PN ---
Subjective This is a 66-year-old male with a past medical history significant for alcohol abuse, type 2 diabetes, COPD, TIA, and paroxysmal atrial fibrillation (on eliquis) diagnosed 03/2021 per patient. 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 We have been asked to see the patient in consultation for atrial fibrillation with RVR. Patient presents to the emergency department with complaints of palpitations, abdominal pain, nausea, and headache. He also is having Abdominal tenderness to LUQ with palpation to the area. On Admission, patient was tachycardic, in sinus tachycardia heart rate in the [id number]. No atrial fibrillation noted.He does endorse drinking heavily 2 months ago. He states he has not had a drink in about 2 months. Patient's blood alcohol level 107 on admission. He denies history of coronary artery disease or UT. Family history includes grandmother had an UT. He states he has missed doses of his Eliquis, he ran out because he was told his copay was $90/month and he could not afford this. Patient was recently admitted 04/01/2021 and 04/21/21 with chest pain. Cardiology evaluated the patient both times. He underwent Lexiscan stress test 04/03/21 which was negative for reversible ischemia. Stress EKG ejection fraction of 61% and resting only 34%. However Echocardiogram 04/02/2021 was completed revealing ejection fraction 55-60%, trace mitral regurgitation, and trace tricuspid regurgitation. 05/27/2021 Patient seen and examined in the emergency department. He denies any chest pain or shortness of breath. CTA negative for pulmonary embolism. Troponin negative 3. Telemetry reviewed patient in sinus mechanism, heart rate 6080s. No evidence of atrial fibrillation with RVR. Case management consult for Eliquis coverage, due to patient stating it was $90/month. Per case management patient has Medicaid and Eliquis is covered or $4/month. He is currently maintained on Eliquis 5 mg twice a day, atorvastatin 40 mg daily, losartan 150 mg daily, metoprolol succinate 100 mg twice a day. PHYSICAL EXAM: VITAL SIGNS: Reviewed. GENERAL: Well-developed in no acute distress. HEENT: Neck supple. No JVD LUNGS: Respirations even and unlabored. Lungs diminished to auscultation bilaterally. HEART: Regular rate and rhythm. S1 and S2 heard. ABDOMEN: Soft. Nondistended. Nontender. EXTREMITIES: Normal range of motion. No clubbing or cyanosis. Peripheral pulse s intact. No lower extremity edema NEUROLOGIC: Awake and alert. Oriented x 3. ASSESSMENT: Sinus Tachycardia Abdominal pain, nausea Headache Paroxysmal atrial fibrillation, diagnosed by his PCP per patient, on Eliquis Hypertension COPD TIA Type 2 Diabetes History of alcohol abuse Hypomagnesemia Elevated LFTs Dyslipidemia PLAN: -Patient is not in atrial fibrillation with RVR, he is maintaining sinus mechanism. His heart rates have improved. CTA negative for pulmonary embolism. Tachycardia could be possibly related to patient's alcohol use. -Continue metoprolol succinate at 100mg BID -Case management consulted for anticoagulation coverage. Per case management patient has Medicaid and Eliquis is covered or $4/month. We will continue patient's Eliquis 5mg BID -Continue statin and losartan 150 mg daily -From a cardiology perspective, patient is stable. 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 -We will follow the patient as needed. Please reconsult if needed. -Patient to follow up in the office in 2 weeks. Objective - Vital Signs Vital signs: Vital Signs Temp 98.3 F 05/27/21 08:46 Pulse 74 05/27/21 08:46 Resp 18 05/27/21 08:46 BP 160/105 05/27/21 08:46 Pulse Ox 97 05/27/21 08:46 - Labs CBC & Chem 7: 05/26/21 09:09 05/25/21 12:41 Labs: Abnormal Lab Results - Last 24 Hours (Table) 05/26/21 05/26/21 Range/Units 09:09 12:24 Plt Count 94 L (150-450) k/uL Lymphocytes # 0.8 L (1.0-4.8) k/uL POC Glucose (mg/dL) 160 H (75-99) mg/dL
[2021-05-27] MEDS: ONDANSETRON 4 MG/2 ML VIAL IVP PRN (13:02)
[2021-05-27] MEDS: ACETAMINOPHEN TAB 325 MG TAB PO PRN (13:03)
[2021-05-27 13:10] VITALS: BP 140/88
[2021-05-27 14:23] VITALS: PULSE 72
--- NOTE | 2021-05-27 19:05 | DS ---
DISCHARGE SUMMARY CHIEF COMPLAINT: Tachycardia and chest pain. HISTORY OF PRESENT ILLNESS AND PHYSICAL EXAMINATION: Details of this man's history and physical can be found in the initial workup. LABORATORY STUDIES: While he was in the hospital he had laboratory studies, details of which can be found in the laboratory section of his chart. COURSE IN THE HOSPITAL: After admission he was placed on bedrest, started on intravenous fluids and seen by Cardiology. He was in atrial fibrillation with a rapid ventricular response, and this was treated. His pulse came down to around 100 with sinus rhythm. His chest pain resolved. He was stable and it was felt that he could go home on May 27. He was admonished not to drink. He does not take his medications and drinks heavily, which results in hypertension and all of the other issues that he has been in and out of the hospital for of late. He will be seen in the office in several days. FINAL DIAGNOSIS: 1. Supraventricular tachycardia with rapid ventricular response. 2. Chronic alcoholism. 3. Acute alcohol intoxication. 4. Hypertension. OPERATIONS: None. CONSULTATION: Cardiology. He is improved. MMODL / IJN: [id number] /
== END 2021-05-27 13:59 | disposition home or self-care (01) | DRG 310 ==
LOC: EC 10:25 → 6NMEDSUR 13:45 → 3SCARD 05-26 02:24 → OBSVTOIN 05-26 11:29 → 3SCARD 05-26 12:49
PROVIDERS: ADMIT Family Medicine; ATTEND Family Medicine
DX: I47.1 Supraventricular tachycardia (principal); E11.9 Type 2 diabetes mellitus without complications; E78.5 Hyperlipidemia, unspecified; J44.9 Chronic obstructive pulmonary disease, unspecified; E83.42 Hypomagnesemia; F10.229 Alcohol dependence with intoxication, unspecified; I08.1 Rheumatic disorders of both mitral and tricuspid valves; Z20.822 Contact with and (suspected) exposure to COVID-19; H91.90 Unspecified hearing loss, unspecified ear; M50.30 Other cervical disc degeneration, unspecified cervical region; D50.9 Iron deficiency anemia, unspecified; E55.9 Vitamin D deficiency, unspecified; D69.6 Thrombocytopenia, unspecified; I10 Essential (primary) hypertension; I25.10 Atherosclerotic heart disease of native coronary artery without angina pectoris; I48.0 Paroxysmal atrial fibrillation; Z86.14 Personal history of Methicillin resistant Staphylococcus aureus infection; Y90.5 Blood alcohol level of 100-119 mg/100 ml; Z79.01 Long term (current) use of anticoagulants; Z79.899 Other long term (current) drug therapy; Z82.3 Family history of stroke; Z82.5 Family history of asthma and other chronic lower respiratory diseases; Z86.711 Personal history of pulmonary embolism; Z86.73 Personal history of transient ischemic attack (TIA), and cerebral infarction without residual deficits; Z91.040 Latex allergy status; Z91.048 Other nonmedicinal substance allergy status; Z91.012 Allergy to eggs; Z91.02 Food additives allergy status; Z87.19 Personal history of other diseases of the digestive system
CPT/HCPCS: 36415; 71046; 71275; 80053; 80320; 83735; 84439; 84481; 84484; 85025; 85379; 85610; 85730; 87635; 93005; 96365; 96366; 96368; 96375; 99291

== ENCOUNTER 2021-07-02 19:07 | Observation (INO) | payer MEDICARE, OTHER ==
[2021-07-02] MEDS ORDERED: SODIUM CHLORIDE 0.9% 1,000 ML IV ONE (19:57)
[2021-07-02] MEDS ORDERED: ONDANSETRON 4 MG/2 ML VIAL IVP STA (19:57)
[2021-07-02 20:03] LABS: Basophils % (A) 1 %; Eosinophils # (A) 0.1 k/uL (0-0.7); Eosinophils % (A) 2 %; HCT 44.1 % (39.0-53.0); HGB 14.7 gm/dL (13.0-17.5); Lymphocytes # (A) 1.9 k/uL (1.0-4.8); Lymphocytes % (A) 41 %; MCH 33.2 pg (25.0-35.0); MCHC 33.3 g/dL (31.0-37.0); MCV 99.6 fL (80.0-100.0); Mean Platelet Volume 7.8; Monocytes # (A) 0.3 k/uL (0-1.0); Monocytes % (A) 7 %; Neutrophils # (A) 2.2 k/uL (1.3-7.7); Neutrophils % (A) 47 %; Platelet Count 116 k/uL (150-450); RBC 4.43 m/uL (4.30-5.90); RDW 13.5 % (11.5-15.5); WBC 4.7 k/uL (3.8-10.6)
[2021-07-02 20:13] LABS: ALT 36 U/L (4-49); AST 57 U/L (17-59); African American GFR (CKD) >90 (>60 ml/min/1.73 sqM); Albumin 3.6 g/dL (3.5-5.0); Alkaline Phosphatase 93 U/L (38-126); Anion Gap 11 mmol/L; Blood Urea Nitrogen 13 mg/dL (9-20); Calcium 8.9 mg/dL (8.4-10.2); Carbon Dioxide 20 mmol/L (22-30); Chloride 113 mmol/L (98-107); Glucose 138 mg/dL (74-99); Magnesium 1.7 mg/dL (1.6-2.3); Non-African American GFR(CKD) 79 (>60 ml/min/1.73 sqM); Sodium 144 mmol/L (137-145); Total Bilirubin 0.5 mg/dL (0.2-1.3); Total Protein 7.3 g/dL (6.3-8.2)
[2021-07-02 20:20] LABS: Partial Thromboplastin Time 23.2 sec (22.0-30.0); Prothrombin Time 11.2 sec (9.0-12.0)
--- NOTE | 2021-07-02 20:26 | XR ---
EXAMINATION TYPE: XR chest 2V DATE OF EXAM: 07/02/2021 COMPARISON: 05/25/2021 HISTORY: Chest pain TECHNIQUE: 2 view FINDINGS: There is no heart failure nor confluent pneumonic infiltrate. Costophrenic angles are clear . There are chest leads. Bony thorax is intact. IMPRESSION: No active cardiopulmonary disease. Normal heart. No change.
--- NOTE | 2021-07-02 21:38 | ED ---
Chest Pain HPI - General Chief Complaint: Chest Pain Stated Complaint: Chest Pain Source: patient, EMS Mode of arrival: EMS Limitations: no limitations - History of Present Illness Initial Comments: 66-year-old male with past medical history of esophageal varices, diabetes, COPD, A. fib, alcohol abuse presents to the emergency department with chest pain, nausea, vomiting, shortness of breath and headache. States the symptoms have been present for the past 2 days. He is living in a senior care house. Reports that there is someone in the house that is sick with nausea and vomi ting. Concerned that he caught something from the roommate. He denies fevers but admits to chills. Denies to me that he has been drinking. Unsure of his cardiac history. Denies that he has been vomiting any blood. No melanic stools. He describes the chest pain as pressure. No cough. The remainder of the HPI is limited as the patient is a very poor historian - Related Data Home Medications Medication Instructions Recorded Confirmed Folic Acid 1 mg PO DAILY 01/07/20 07/02/21 Tamsulosin [Flomax] 0.4 mg PO DAILY 01/07/20 07/02/21 traZODone HCL 50 mg PO HS PRN 01/07/20 07/02/21 Ergocalciferol [Vitamin D2 (1250 1,250 mcg PO Q30D 10/30/20 07/02/21 Mcg = 08796 Iu)] Naproxen 500 mg PO BID PRN 10/30/20 07/02/21 Doxazosin [Cardura] 1 mg PO DAILY 03/02/21 07/02/21 Omeprazole 20 mg PO DAILY 03/02/21 07/02/21 Potassium Chloride ER [K-Dur 20] 20 meq PO BID 03/02/21 07/02/21 HYDROcodone/APAP 5-325MG [[place] 1 tab PO Q6H PRN 04/01/21 07/02/21 5-325] Previous Rx's Medication Instructions Recorded Ferrous Sulfate [Iron (65 MG 325 mg PO DAILY #30 tab 06/07/19 Elemental)] Sucralfate [Carafate] 1 gm PO AC-TID #90 tablet 06/07/19 Thiamine [Vitamin B-1] 100 mg PO BID-W/MEALS #60 tab 03/04/21 Magnesium Oxide [Mag-Ox] 400 mg PO BID #60 tab 04/03/21 Atorvastatin [Lipitor] 40 mg PO DAILY 30 Days #30 tab 04/22/21 Losartan [Cozaar] 150 mg PO DAILY 30 Days #90 tab 04/24/21 Apixaban [Eliquis] 5 mg PO BID 30 Days #60 tab 05/27/21 Metoprolol Succinate (ER) [Toprol 100 mg PO BID 30 Days #60 tab 05/27/21 XL] Allergies Allergy/AdvReac Type Severity Reaction Status Date / Time adhesive tape Allergy Rash/Hives Verified 07/02/21 21:12 latex Allergy Unknown Verified 07/02/21 21:12 egg AdvReac Nausea & Verified 07/02/21 21:12 Vomiting lisinopril AdvReac EYES Verified 07/02/21 21:12 BURN&ITCH/WEAKNESS tomato AdvReac Nausea & Verified 07/02/21 21:12 Vomiting & Diarrhea Review of Systems ROS Statement: Those systems with pertinent positive or pertinent negative responses have been documented in the HPI. ROS Other: All systems not noted in ROS Statement are negative. EKG Findings - EKG Comments: EKG Findings:: EKG demonstrates sinus tachycardia with ventricular rate of 112. NE interval 163. QRS 81. QTC of 410. No acute ST segment elevations or depressions concerning for ischemic changes Past Medical History Past Medical History: Atrial Fibrillation, Chest Pain / Angina, COPD, CVA/TIA, Diabetes Mellitus, GERD/Reflux, GI Bleed, Hearing Disorder / Deafness, Hyperlipidemia, Hypertension, Liver Disease, Pneumonia, Prostate Disorder, Pulmonary Embolus (PE) Additional Past Medical History / Comment(s): GI bleed/ esophageal varicies banded. Other hx: Alcoholism, alcohol withdrawal DTs and possibly a seizure in 2018 r/t withdrawal, chronic alcoholic cirrhosis with portal hypertension and previous history of upper and lower GI bleeding, esophageal varices, previous history of childhood seizure which he outgrew not taking any antiepileptic medication, pulmonary embolism x 2 R lung, TIA, diverticulosis, chronic lower bilateral extremity ankle edema if he walks a lot, previous history of septicemia, cervical disc disease, chronic neck pain, chronic back pain with r sided sciatica, degenerative arthritis involving the lower back, scoliosis, tinnitus, vitamin D deficiency, iron anemia, chronic thrombocytopenia, denies MRSA, C-DIFF -2018 History of Any Multi-Drug Resistant Organisms: MRSA Date of last positivie culture/infection: 03/17/18 MDRO Source:: stomach Past Surgical History: Appendectomy, Cholecystectomy Additional Past Surgical History / Comment(s): EGDs/esophageal varicies bandings, colonoscopies. Past Anesthesia/Blood Transfusion Reactions: No Reported Reaction Additional Past Anesthesia/Blood Transfusion Reaction / Comment(s): after appendix removed sob Past Psychological History: Anxiety, Depression Smoking Status: Never smoker - Past Family History Mother Family Medical History: COPD, CVA/TIA, Dementia Additional Family Medical History / Comment(s): from a stroke Father Family Medical History: Pneumonia Additional Family Medical History / Comment(s): Father of pneumonia when he was close to 80 yrs old. General Exam Limitations: no limitations Course Vital Signs 07/02/21 07/02/21 07/02/21 19:16 20:19 23:11 Temperature 98.2 F Pulse Rate 113 H 96 96 Respiratory 16 16 18 Rate Blood Pressure 148/98 148/98 170/92 O2 Sat by Pulse 97 97 95 Oximetry Chest Pain MDM - MDM On arrival patient is placed into room 2. A thorough history and physical exam was performed. Patient placed on continuous pulse ox and cardiac monitoring. 12-lead EKG is obtained. Laboratory studies are conducted. Patient has a d- dimer of 0.39. Troponin negative. He does have some alcohol in his system with a level of 73. Covid detected chest x-ray demonstrates no acute process. I am concerned that the patient is going through alcohol withdrawals. Recommended admission in order to trend his troponins and placed him on CIWA protocol. Patient did agree with this. Spoke with Corbin from [facility] who will admit the patient. Patient awaiting a bed on the floor in stable condition Disposition Clinical Impression: Chest pain, Alcohol abuse, Nausea & vomiting Disposition: ADMITTED IP TO THIS [facility] Condition: Stable Is patient prescribed a controlled substance at d/c from ED?: No Decision to Admit Reason: Admit from Decision Date: 07/02/21 Decision Time: 21:54
[2021-07-02] MEDS ORDERED: ONDANSETRON 4 MG/2 ML VIAL IVP PRN (21:55)
[2021-07-02] MEDS ORDERED: NALOXONE 0.4 MG/ML 1 ML VIAL IV PRN (21:55)
[2021-07-02] MEDS ORDERED: LORazepam 2 MG/ML INJ IV PRN ×3 (21:59)
[2021-07-02] MEDS ORDERED: THIAMINE 100 MG/ML 2 ML VIAL IM STA (21:59)
[2021-07-02] MEDS: PANTOPRAZOLE 40 MG/10 ML VIAL IV SCH (23:11)
[2021-07-03] MEDS ORDERED: HYDROcodone/APAP 5-325MG 1 EACH TAB PO PRN (00:16)
[2021-07-03] MEDS ORDERED: traZODone HCL 50 MG TAB PO PRN (00:30)
[2021-07-03 03:03] LABS: Basophils % (A) 1 %; Eosinophils # (A) 0.1 k/uL (0-0.7); Eosinophils % (A) 2 %; HCT 43.5 % (39.0-53.0); HGB 14.4 gm/dL (13.0-17.5); Lymphocytes % (A) 38 %; MCH 32.8 pg (25.0-35.0); MCHC 33.1 g/dL (31.0-37.0); MCV 99.1 fL (80.0-100.0); Mean Platelet Volume 7.7; Monocytes # (A) 0.3 k/uL (0-1.0); Monocytes % (A) 6 %; Neutrophils # (A) 2.7 k/uL (1.3-7.7); Neutrophils % (A) 52 %; Platelet Count 104 k/uL (150-450); RBC 4.39 m/uL (4.30-5.90); RDW 13.5 % (11.5-15.5); WBC 5.3 k/uL (3.8-10.6)
[2021-07-03 03:27] LABS: African American GFR (CKD) >90 (>60 ml/min/1.73 sqM); Anion Gap 8 mmol/L; Blood Urea Nitrogen 11 mg/dL (9-20); Calcium 8.7 mg/dL (8.4-10.2); Carbon Dioxide 23 mmol/L (22-30); Chloride 111 mmol/L (98-107); Glucose 106 mg/dL (74-99); Non-African American GFR(CKD) >90 (>60 ml/min/1.73 sqM); Potassium 3.7 mmol/L (3.5-5.1); Sodium 142 mmol/L (137-145)
[2021-07-03] MEDS: ATORVASTATIN 40 MG TAB PO SCH (08:25)
[2021-07-03] MEDS: SUCRALFATE 1 GM TAB PO SCH ×3 (08:25→17:30)
[2021-07-03] MEDS: THIAMINE 100 MG TAB PO SCH ×2 (08:25→17:30)
[2021-07-03] MEDS: DOXAZOSIN 1 MG TAB PO SCH (08:25)
[2021-07-03] MEDS: APIXABAN 5 MG TAB PO SCH ×2 (08:25→21:27)
[2021-07-03] MEDS: FOLIC ACID 1 MG TAB PO SCH (08:25)
[2021-07-03] MEDS: FERROUS SULFATE 325 MG TAB PO SCH (08:25)
[2021-07-03] MEDS: METOPROLOL SUCCINATE (ER) 100 MG TAB.ER.24H PO SCH ×2 (08:26→21:27)
[2021-07-03] MEDS: POTASSIUM CHLORIDE ER 20 MEQ TAB.ER PO SCH ×2 (08:33→21:28)
[2021-07-03] MEDS: LOSARTAN 50 MG TAB PO SCH (08:33)
[2021-07-03] MEDS: PANTOPRAZOLE 40 MG TABLET PO SCH (08:33)
[2021-07-03] MEDS: MAGNESIUM OXIDE 400 MG TAB PO SCH ×2 (08:33→21:27)
[2021-07-03] MEDS: TAMSULOSIN 0.4 MG CAP.ER.24H PO SCH (08:33)
[2021-07-03] MEDS: PANTOPRAZOLE 40 MG/10 ML VIAL IV SCH (08:34)
--- NOTE | 2021-07-03 09:07 | P.CRDCN ---
History of Present Illness Consult date: 07/03/21 History of present illness: HISTORY OF PRESENT ILLNESS: This is a 66-year-old male with a past medical history significant for alcohol abuse, diabetes, hypertension, hyperlipidemia, COPD, TIAs, and paroxysmal atrial fibrillation. Patient does not follow with a associate account manager.. We have been asked to see the patient in consultation for chest pain. Patient examined at the bedside. Patient states he is currently living at a rehabilitation house. He states he lives there with a few other men. He states one of the other men in the house has been sick recently and has been coughing and having vomiting and diarrhea. The patient states over the past few days he has not felt well and thinks he may have caught something from his house mate. He states he began coughing about 3 days ago. He reports is a nonproductive cough. The patient states he felt like he was running a fever at home but did not take his temperature. He denied any shortness of breath. He states he was having chest discomfort over the past few days when he was coughing. He does report chest wall tenderness with palpation. He denies any chest pain at rest and states he was only having discomfort when he was coughing. The patient also reports he has not been taking his Eliquis because of insurance reasons and states he cannot afford to take it. However case management was consulted and his co-pay is only $4 a month. Patient also states he has not been drinking for the past year. However patient's alcohol level on admission was 73. * EKG reveals sinus tachycardia with no signs of acute ischemia * Chest xray no active cardiopulmonary disease. Normal heart. No change. * Laboratory data: WBC 5.3. Hemoglobin 14.4. Platelet count 104. D-dimer 0.39. Sodium 142. Potassium 3.7. BUN 11. Creatinine 0.80. * Current home cardiac medications include metoprolol succinate 100 mg twice a day, losartan 150 mg daily, Cardura 1 mg daily, Lipitor 40 mg daily, and Eliquis 5 mg twice a day * Most recent echocardiogram obtained in March 2021 revealed ejection fraction 55-60%, trace mitral regurgitation, and trace tricuspid regurgitation * Patient underwent Lexiscan stress test in March 2021 which was negative for ischemia. REVIEW OF SYSTEMS: At the time of my exam: CONSTITUTIONAL: Denies fever or chills. HEENT: Denies blurred vision, vision changes, or eye pain. Denies hemoptysis CARDIOVASCULAR: Denies chest pain. Denies orthopnea. Denies PND. Denies palpitations RESPIRATORY: Denies shortness of breath. GASTROINTESTINAL: Denies abdominal pain. Denies nausea or vomiting. HEMATOLOGIC: Denies bleeding disorders. GENITOURINARY: Denies any blood in urine. SKIN: Denies pruitis. Denies rash. PHYSICAL EXAM: VITAL SIGNS: Reviewed. GENERAL: Well-developed in no acute distress. HEENT: Head is normocephalic. Pupils are equal, round. Sclerae anicteric. Mucous membranes of the mouth are moist. Neck supple. No JVD or thyromegaly LUNGS: Respirations even and unlabored. Lungs diminished to auscultation bilaterally. HEART: Regular rate and rhythm. S1 and S2 heard. ABDOMEN: Soft. Nondistended. Nontender. EXTREMITIES: Normal range of motion. No clubbing or cyanosis. Peripheral pulses intact. No lower extremity edema NEUROLOGIC: Awake and alert. Oriented x 3. ASSESSMENT: Chest pain, atypical, pleuritic, troponins negative 3 Paroxysmal atrial fibrillation Hypertension Hyperlipidemia Diabetes History of alcohol use COPD History of TIA Medication noncompliance PLAN: An acute coronary event has been ruled out Obtain limited echo to assess LV function Resume home cardiac medications Reinforced importance of medication compliance with patient Recommend abstinence from alcohol Patient may be discharged home this afternoon from a cardiac standpoint Nurse practitioner note has been reviewed by physician. Signing provider agrees with the documented findings, assessment, and plan of care. Past Medical History Past Medical History: Atrial Fibrillation, Chest Pain / Angina, COPD, CVA/TIA, Diabetes Mellitus, GERD/Reflux, GI Bleed, Hearing Disorder / Deafness, Hyperlipidemia, Hypertension, Liver Disease, Pneumonia, Prostate Disorder, Pulmonary Embolus (PE) Additional Past Medical History / Comment(s): GI bleed/ esophageal varicies banded. Other hx: Alcoholism, alcohol withdrawal DTs and possibly a seizure in 2018 r/t withdrawal, chronic alcoholic cirrhosis with portal hypertension and previous history of upper and lower GI bleeding, esophageal varices, previous history of childhood seizure which he outgrew not taking any antiepileptic medication, pulmonary embolism x 2 R lung, TIA, diverticulosis, chronic lower bilateral extremity ankle edema if he walks a lot, previous history of septicemia, cervical disc disease, chronic neck pain, chronic back pain with r sided sciatica, degenerative arthritis involving the lower back, scoliosis, tinnitus, vitamin D deficiency, iron anemia, chronic thrombocytopenia, denies MRSA, C-DIFF -2018 History of Any Multi-Drug Resistant Organisms: MRSA Date of last positivie culture/infection: 03/17/18 MDRO Source:: stomach Past Surgical History: Appendectomy, Cholecystectomy Additional Past Surgical History / Comment(s): EGDs/esophageal varicies bandings, colonoscopies. Past Anesthesia/Blood Transfusion Reactions: No Reported Reaction Additional Past Anesthesia/Blood Transfusion Reaction / Comment(s): after append ix removed sob Past Psychological History: Anxiety, Depression Smoking Status: Never smoker - Past Family History Mother Family Medical History: COPD, CVA/TIA, Dementia Additional Family Medical History / Comment(s): from a stroke Father Family Medical History: Pneumonia Additional Family Medical History / Comment(s): Father of pneumonia when he was close to 80 yrs old. Medications and Allergies Home Medications Medication Instructions Recorded Confirmed Type Ferrous Sulfate [Iron (65 MG 325 mg PO DAILY #30 tab 06/07/19 07/02/21 Rx Elemental)] Sucralfate [Carafate] 1 gm PO AC-TID #90 tablet 06/07/19 07/02/21 Rx Folic Acid 1 mg PO DAILY 01/07/20 07/02/21 History Tamsulosin [Flomax] 0.4 mg PO DAILY 01/07/20 07/02/21 History traZODone HCL 50 mg PO HS PRN 01/07/20 07/02/21 History Ergocalciferol [Vitamin D2 (1250 1,250 mcg PO Q30D 10/30/20 07/02/21 History Mcg = 77071 Iu)] Naproxen 500 mg PO BID PRN 10/30/20 07/02/21 History Doxazosin [Cardura] 1 mg PO DAILY 03/02/21 07/02/21 History Omeprazole 20 mg PO DAILY 03/02/21 07/02/21 History Potassium Chloride ER [K-Dur 20] 20 meq PO BID 03/02/21 07/02/21 History Thiamine [Vitamin B-1] 100 mg PO BID-W/MEALS #60 tab 03/04/21 07/02/21 Rx HYDROcodone/APAP 5-325MG [[place] 1 tab PO Q6H PRN 04/01/21 07/02/21 History 5-325] Magnesium Oxide [Mag-Ox] 400 mg PO BID #60 tab 04/03/21 07/02/21 Rx Atorvastatin [Lipitor] 40 mg PO DAILY 30 Days #30 tab 04/22/21 07/02/21 Rx Losartan [Cozaar] 150 mg PO DAILY 30 Days #90 tab 04/24/21 07/02/21 Rx Apixaban [Eliquis] 5 mg PO BID 30 Days #60 tab 05/27/21 07/02/21 Rx Metoprolol Succinate (ER) [Toprol 100 mg PO BID 30 Days #60 tab 05/27/21 07/02/21 Rx XL] Allergies Allergy/AdvReac Type Severity Reaction Status Date / Time adhesive tape Allergy Rash/Hives Verified 07/02/21 21:12 latex Allergy Unknown Verified 07/02/21 21:12 egg AdvReac Nausea & Verified 07/02/21 21:12 Vomiting lisinopril AdvReac EYES Verified 07/02/21 21:12 BURN&ITCH/WEAKNESS tomato AdvReac Nausea & Verified 07/02/21 21:12 Vomiting & Diarrhea Physical Exam Vitals: Vital Signs Temp Pulse Pulse Resp BP BP Pulse Ox 07/03/21 06:00 98 F 95 18 164/98 96 07/02/21 23:39 97.8 F 99 17 190/114 95 07/02/21 23:11 96 18 170/92 95 07/02/21 20:19 96 16 148/98 97 07/02/21 19:16 98.2 F 113 H 16 148/98 97 Intake and Output 07/02/21 07/03/21 07/03/21 22:59 06:59 14:59 Other: # Voids 1 Weight 96.615 kg Results 07/03/21 02:50 07/03/21 02:50 Cardiac Enzymes 07/02/21 07/02/21 07/03/21 Range/Units 19:54 19:54 00:50 AST 57 (17-59) U/L Troponin I <0.012 <0.012 (0.000-0.034) ng/mL 07/03/21 Range/Units 02:50 AST (17-59) U/L Troponin I <0.012 (0.000-0.034) ng/mL Coagulation 07/02/21 Range/Units 19:54 PT 11.2 (9.0-12.0) sec APTT 23.2 (22.0-30.0) sec CBC 07/02/21 07/03/21 Range/Units 19:54 02:50 WBC 4.7 5.3 (3.8-10.6) k/uL RBC 4.43 4.39 (4.30-5.90) m/uL Hgb 14.7 14.4 (13.0-17.5) gm/dL Hct 44.1 43.5 (39.0-53.0) % Plt Count 116 L 104 L (150-450) k/uL Comprehensive Metabolic Panel 07/02/21 07/03/21 Range/Units 19:54 02:50 Sodium 144 142 (137-145) mmol/L Potassium 4.0 3.7 (3.5-5.1) mmol/L Chloride 113 H 111 H (98-107) mmol/L Carbon Dioxide 20 L 23 (22-30) mmol/L BUN 13 11 (9-20) mg/dL Creatinine 1.00 0.88 (0.66-1.25) mg/dL Glucose 138 H 106 H (74-99) mg/dL Calcium 8.9 8.7 (8.4-10.2) mg/dL AST 57 (17-59) U/L ALT 36 (4-49) U/L Alkaline Phosphatase 93 (38-126) U/L Total Protein 7.3 (6.3-8.2) g/dL Albumin 3.6 (3.5-5.0) g/dL Current Medications Generic Name Dose Route Start Last Admin Trade Name Freq PRN Reason Stop Dose Admin Hydrocodone Bitart/Acetaminophen 1 each 07/03/21 00:16 Hydrocodone/Apap 5-325mg 1 Each Tab PO Q6H PRN Pain Apixaban 5 mg 07/03/21 09:00 Apixaban 5 Mg Tab PO BID [facility] Protocol Atorvastatin Calcium 40 mg 07/03/21 09:00 Atorvastatin 40 Mg Tab PO DAILY [facility] Doxazosin Mesylate 1 mg 07/03/21 09:00 Doxazosin 1 Mg Tab PO DAILY [facility] Ergocalciferol 1,250 mcg 07/15/21 09:00 Ergocalciferol 1,250 Mcg (50,000 Iu) Capsule PO Q30D [facility] Ferrous Sulfate 325 mg 07/03/21 09:00 Ferrous Sulfate 325 Mg Tab PO DAILY [facility] Folic Acid 1 mg 07/03/21 09:00 Folic Acid 1 Mg Tab PO DAILY [facility] Lorazepam 1 mg 07/02/21 21:59 Lorazepam 2 Mg/Ml Inj IV Q2HR PRN CIWA 8 or 9 Lorazepam 1 mg 07/02/21 21:59 Lorazepam 2 Mg/Ml Inj IV Q1HR PRN CIWA 10 to 15 Lorazepam 2 mg 07/02/21 21:59 Lorazepam 2 Mg/Ml Inj IV 07/04/21 21:59 Q10M PRN CIWA 16 or higher Losartan Potassium 150 mg 07/03/21 09:00 Losartan 50 Mg Tab PO DAILY [facility] Magnesium Oxide 400 mg 07/03/21 09:00 Magnesium Oxide 400 Mg Tab PO BID [facility] Metoprolol Succinate 100 mg 07/03/21 09:00 Metoprolol Succinate (Er) 100 Mg Tab.Er.24h PO BID [facility] Naloxone HCl 0.2 mg 07/02/21 21:55 Naloxone 0.4 Mg/Ml 1 Ml Vial IV Q2M PRN Opioid Reversal Ondansetron HCl 4 mg 07/02/21 21:55 Ondansetron 4 Mg/2 Ml Vial IVP Q8HR PRN Nausea And Vomiting Pantoprazole Sodium 40 mg 07/02/21 22:00 07/02/21 23:11 Pantoprazole 40 Mg/10 Ml Vial IV 40 mg DAILY [facility] Administration Pantoprazole Sodium 40 mg 07/03/21 09:00 Pantoprazole 40 Mg Tablet PO DAILY [facility] Potassium Chloride 20 meq 07/03/21 09:00 Potassium Chloride Er 20 Meq Tab.Er PO BID [facility] Sucralfate 1 gm 07/03/21 07:30 Sucralfate 1 Gm Tab PO AC-TID [facility] Tamsulosin HCl 0.4 mg 07/03/21 09:00 Tamsulosin 0.4 Mg Cap.Er.24h PO DAILY [facility] Thiamine HCl 100 mg 07/03/21 07:30 Thiamine 100 Mg Tab PO BID-W/MEALS [facility] Trazodone HCl 50 mg 07/03/21 00:30 Trazodone Hcl 50 Mg Tab PO HS PRN Insomnia Intake and Output 07/02/21 07/03/21 07/03/21 22:59 06:59 14:59 Other: # Voids 1 Weight 96.615 kg 07/03/21 02:50 07/03/21 02:50
--- NOTE | 2021-07-03 10:06 | ECHOF ---
Referral Reason:chest pain, LV function MEASUREMENTS -------- HEIGHT: 177.8 cm WEIGHT: 104.3 kg BP: 164/98 FINDINGS -------- Sinus rhythm. Limited Study Overall left ventricular systolic function is normal with, an EF between 55 - 60 %. There is no pericardial effusion. CONCLUSIONS -------- 1. Overall left ventricular systolic function is normal with, an EF between 55 - 60 %. 2. There is no pericardial effusion. LPN RN HOSPICE: Margaret Solorio RDCS
[2021-07-03] MEDS: hydrALAZINE HCL 50 MG TAB PO SCH ×3 (11:28→21:28)
[2021-07-03 14:00] VITALS: RESP 18
[2021-07-04 07:33] VITALS: BP 118/76; PULSE 101; TEMP 97.6
[2021-07-04] MEDS: SUCRALFATE 1 GM TAB PO SCH (08:15)
[2021-07-04] MEDS: APIXABAN 5 MG TAB PO SCH (08:15)
[2021-07-04] MEDS: THIAMINE 100 MG TAB PO SCH (08:15)
[2021-07-04] MEDS: FERROUS SULFATE 325 MG TAB PO SCH (08:15)
[2021-07-04] MEDS: ATORVASTATIN 40 MG TAB PO SCH (08:15)
[2021-07-04] MEDS: MAGNESIUM OXIDE 400 MG TAB PO SCH (08:15)
[2021-07-04] MEDS: POTASSIUM CHLORIDE ER 20 MEQ TAB.ER PO SCH (08:15)
[2021-07-04] MEDS: PANTOPRAZOLE 40 MG TABLET PO SCH (08:15)
[2021-07-04] MEDS: TAMSULOSIN 0.4 MG CAP.ER.24H PO SCH (08:15)
[2021-07-04] MEDS: hydrALAZINE HCL 50 MG TAB PO SCH (08:16)
[2021-07-04] MEDS: DOXAZOSIN 1 MG TAB PO SCH (08:16)
[2021-07-04] MEDS: FOLIC ACID 1 MG TAB PO SCH (08:16)
[2021-07-04] MEDS: METOPROLOL SUCCINATE (ER) 100 MG TAB.ER.24H PO SCH (08:16)
[2021-07-04] MEDS: LOSARTAN 50 MG TAB PO SCH (08:16)
--- NOTE | 2021-07-05 15:47 | PN ---
PROGRESS NOTE DATE OF SERVICE: 07/03/2021 CHIEF COMPLAINT: Chest pain with nausea and vomiting. HISTORY OF PRESENT ILLNESS: This gentleman is improved. He is not having as much chest pain. His blood pressure is still elevated. He has had no further nausea or vomiting. PHYSICAL EXAMINATION: Chest is clear. Cardiac exam is normal. The abdomen is soft and nontender. Extremities are normal. IMPRESSION: 1. Chest pain. 2. Hypertension. 3. Nausea and vomiting. 4. Gastritis. 5. Alcoholism. PLAN: Progress activity and diet and continue to monitor his chest pain as well as his blood pressure. MMODL / IJN: [id number] /
--- NOTE | 2021-07-05 16:02 | DS ---
DISCHARGE SUMMARY CHIEF COMPLAINT: Chest pain, nausea and vomiting and hypertension. HISTORY OF PRESENT ILLNESS AND PHYSICAL EXAMINATION: Details of this man's history and physical can be found in the initial workup. LABORATORY STUDIES: While he was in the hospital he had laboratory studies, details of which can be found in the laboratory section of his chart. COURSE IN THE HOSPITAL: After admission he was placed on bedrest, started on intravenous fluids and was seen by Cardiology. Cardiac enzymes and EKGs remained normal. His blood pressure remained quite high and this was treated; on the day of discharge it was down to normal. He will be discharged and followed up in the office in several days and was admonished to take his medications, which he frequently does not do. He is also instructed to stop his heavy alcohol intake. FINAL DIAGNOSIS: 1. Chest pain . 2. Hypertension. 3. causing vomiting. 4. Dehydration. OPERATIONS: None. CONSULTATION: Cardiology. He is improved. MMKEVIN / RENAEN: [id number] /
[2021-07-15] MEDS ORDERED: ERGOCALCIFEROL 1,250 MCG (50,000 IU) CAPSULE PO SCH (09:00)
== END 2021-07-04 13:00 | disposition home or self-care (01) ==
LOC: EC 19:07 → 6NMEDSUR 21:55
PROVIDERS: ADMIT Family Medicine; ATTEND Family Medicine
DX: R07.89 Other chest pain (principal); I10 Essential (primary) hypertension; R11.2 Nausea with vomiting, unspecified; E86.0 Dehydration; Z20.822 Contact with and (suspected) exposure to COVID-19; F10.220 Alcohol dependence with intoxication, uncomplicated; Y90.3 Blood alcohol level of 60-79 mg/100 ml; Z71.41 Alcohol abuse counseling and surveillance of alcoholic; K29.70 Gastritis, unspecified, without bleeding; J44.9 Chronic obstructive pulmonary disease, unspecified; I48.0 Paroxysmal atrial fibrillation; E11.9 Type 2 diabetes mellitus without complications; E78.5 Hyperlipidemia, unspecified; H91.90 Unspecified hearing loss, unspecified ear; F32.A Depression, unspecified; F41.9 Anxiety disorder, unspecified; I85.00 Esophageal varices without bleeding; K21.9 Gastro-esophageal reflux disease without esophagitis; K76.9 Liver disease, unspecified; M54.41 Lumbago with sciatica, right side; M50.30 Other cervical disc degeneration, unspecified cervical region; K57.90 Diverticulosis of intestine, part unspecified, without perforation or abscess without bleeding; N42.9 Disorder of prostate, unspecified; Z91.14 Patient's other noncompliance with medication regimen; Z79.01 Long term (current) use of anticoagulants; Z79.899 Other long term (current) drug therapy; Z91.018 Allergy to other foods; Z91.012 Allergy to eggs; Z88.8 Allergy status to other drugs, medicaments and biological substances; Z91.048 Other nonmedicinal substance allergy status; Z91.040 Latex allergy status; Z86.711 Personal history of pulmonary embolism; Z87.01 Personal history of pneumonia (recurrent); Z86.14 Personal history of Methicillin resistant Staphylococcus aureus infection; Z86.73 Personal history of transient ischemic attack (TIA), and cerebral infarction without residual deficits; Z90.49 Acquired absence of other specified parts of digestive tract; Z82.5 Family history of asthma and other chronic lower respiratory diseases; Z82.3 Family history of stroke
CPT/HCPCS: 99285; 96361; 96372; 96374; 96375; 36415; 93005; 93308; 85379; 80053; 80048; 83605; 83690; 83735; 84484 ×2; 85025 ×2; 85610; 85730; 87635; 71046; G0378 ×3; G0480; J3411; J2405; C9113; 80320

== ENCOUNTER 2021-07-10 18:06 | Inpatient (IN) | payer MEDICARE, OTHER ==
[2021-07-10] MEDS ORDERED: SODIUM CHLORIDE 0.9% 1,000 ML IV STA (18:36)
--- NOTE | 2021-07-10 18:44 | ED ---
General Adult HPI - General Chief complaint: Chest Pain Stated complaint: Chest pain Time Seen by Provider: 07/10/21 18:22 Source: patient, EMS, RN notes reviewed Mode of arrival: EMS Limitations: no limitations - History of Present Illness Initial comments: 66-year-old male presents to the emergency department via EMS for evaluation of left-sided chest pain accompanied by congested cough and occasional shortness of breath. States the symptoms have been intermittent for the past 2 weeks, however have worsened over the past few days. States he also has abdominal pain that extends across the upper abdomen and down both sides. Reports one episode of stool with bright red blood earlier today. He does have a history of varices. Denies fever, chills, headache, dizziness, back pain, nausea, vomiting, diarrhea, dysuria, or lower extremity edema. - Related Data Home Medications Medication Instructions Recorded Confirmed Folic Acid 1 mg PO DAILY 01/07/20 07/10/21 Tamsulosin [Flomax] 0.4 mg PO DAILY 01/07/20 07/10/21 traZODone HCL 50 mg PO HS PRN 01/07/20 07/10/21 Ergocalciferol [Vitamin D2 (1250 1,250 mcg PO Q30D 10/30/20 07/10/21 Mcg = 02475 Iu)] Naproxen 500 mg PO BID PRN 10/30/20 07/10/21 Doxazosin [Cardura] 1 mg PO DAILY 03/02/21 07/10/21 Omeprazole 20 mg PO DAILY 03/02/21 07/10/21 Potassium Chloride ER [K-Dur 20] 20 meq PO BID 03/02/21 07/10/21 HYDROcodone/APAP 5-325MG [[place] 1 tab PO Q6H PRN 04/01/21 07/10/21 5-325] Previous Rx's Medication Instructions Recorded Ferrous Sulfate [Iron (65 MG 325 mg PO DAILY #30 tab 06/07/19 Elemental)] Sucralfate [Carafate] 1 gm PO AC-TID #90 tablet 06/07/19 Thiamine [Vitamin B-1] 100 mg PO BID-W/MEALS #60 tab 03/04/21 Magnesium Oxide [Mag-Ox] 400 mg PO BID #60 tab 04/03/21 Atorvastatin [Lipitor] 40 mg PO DAILY 30 Days #30 tab 04/22/21 Losartan [Cozaar] 150 mg PO DAILY 30 Days #90 tab 04/24/21 Apixaban [Eliquis] 5 mg PO BID 30 Days #60 tab 05/27/21 Metoprolol Succinate (ER) [Toprol 100 mg PO BID 30 Days #60 tab 05/27/21 XL] hydrALAZINE HCL [Apresoline] 50 mg PO TID #90 tab 07/04/21 Allergies Allergy/AdvReac Type Severity Reaction Status Date / Time adhesive tape Allergy Rash/Hives Verified 07/02/21 21:12 latex Allergy Unknown Verified 07/02/21 21:12 egg AdvReac Nausea & Verified 07/02/21 21:12 Vomiting lisinopril AdvReac EYES Verified 07/02/21 21:12 BURN&ITCH/WEAKNESS tomato AdvReac Nausea & Verified 07/02/21 21:12 Vomiting & Diarrhea Review of Systems ROS Statement: Those systems with pertinent positive or pertinent negative responses have been documented in the HPI. ROS Other: All systems not noted in ROS Statement are negative. Past Medical History Past Medical History: Atrial Fibrillation, Chest Pain / Angina, COPD, CVA/TIA, Diabetes Mellitus, GERD/Reflux, GI Bleed, Hearing Disorder / Deafness, Hyperlipidemia, Hypertension, Liver Disease, Pneumonia, Prostate Disorder, Pulmonary Embolus (PE) Additional Past Medical History / Comment(s): GI bleed/ esophageal varicies banded. Other hx: Alcoholism, alcohol withdrawal DTs and possibly a seizure in 2018 r/t withdrawal, chronic alcoholic cirrhosis with portal hypertension and previous history of upper and lower GI bleeding, esophageal varices, previous history of childhood seizure which he outgrew not taking any antiepileptic medication, pulmonary embolism x 2 R lung, TIA, diverticulosis, chronic lower bilateral extremity ankle edema if he walks a lot, previous history of septicemia, cervical disc disease, chronic neck pain, chronic back pain with r sided sciatica, degenerative arthritis involving the lower back, scoliosis, tinnitus, vitamin D deficiency, iron anemia, chronic thrombocytopenia, denies MRSA, C-DIFF -2018 History of Any Multi-Drug Resistant Organisms: MRSA Date of last positivie culture/infection: 03/17/18 MDRO Source:: stomach Past Surgical History: Appendectomy, Cholecystectomy Additional Past Surgical History / Comment(s): EGDs/esophageal varicies bandings, colonoscopies. Past Anesthesia/Blood Transfusion Reactions: No Reported Reaction Additional Past Anesthesia/Blood Transfusion Reaction / Comment(s): after appendix removed sob Past Psychological History: Anxiety, Depression Smoking Status: Never smoker Past Alcohol Use History: None Reported Past Drug Use History: None Reported - Past Family History Mother Family Medical History: COPD, CVA/TIA, Dementia Additional Family Medical History / Comment(s): from a stroke Father Family Medical History: Pneumonia Additional Family Medical History / Comment(s): Father of pneumonia when he was close to 80 yrs old. General Exam Limitations: no limitations (Well-developed, well-nourished male in no acute distress. Initial temperature 98.5, pulse 107, respirations 16, blood pressure 205/104, pulse ox 96% on room air.) General appearance: alert, in no apparent distress Eye exam: Present: normal appearance, PERRL, EOMI. Absent: scleral icterus, conjunctival injection, periorbital swelling ENT exam: Present: normal exam, normal oropharynx, mucous membranes moist Respiratory exam: Present: normal lung sounds bilaterally, chest wall tenderness (midsternal chest tenderness upon palpation.). Absent: respiratory distress, wheezes, rales, rhonchi, stridor Cardiovascular Exam: Present: normal rhythm, tachycardia, normal heart sounds GI/Abdominal exam: Present: soft, normal bowel sounds. Absent: distended, tenderness, guarding, rebound, rigid Back exam: Present: normal inspection. Absent: CVA tenderness (R), CVA tenderness (L) Neurological exam: Present: alert, oriented X3, CN II-XII intact Psychiatric exam: Present: normal affect, normal mood Skin exam: Present: warm, dry, intact, normal color. Absent: rash Course Vital Signs 07/10/21 07/10/21 07/10/21 18:08 18:18 19:21 Temperature 98.5 F Pulse Rate 107 H 97 Pulse Rate [ 107 H [employer] ] Respiratory 16 18 Rate Blood Pressure 205/104 170/103 O2 Sat by Pulse 96 99 Oximetry 07/10/21 07/11/21 07/11/21 21:22 00:44 02:00 Temperature Pulse Rate 92 108 H Pulse Rate [ [employer] ] Respiratory 18 18 18 Rate Blood Pressure 175/102 143/104 118/65 O2 Sat by Pulse 95 95 96 Oximetry - Reevaluation(s) Reevaluation #1: 07/10/21 21:08 Upon reevaluation, patient does complain of mild persistent chest pressure. Blood pressure is elevated. Nitropaste will be ordered. Medical Decision Making - Medical Decision Making 66-year-old male with an extensive medical history multiple hospitalizations presents to the emergency department for evaluation of chest pain, cough, and abdominal discomfort. Upon arrival, patient is hypertensive and mildly tachycardic; he is afebrile. This patient is a poor historian. He is able to converse without difficulty, though is noted to be coughing. Patient is in no acute distress, but does complain of left anterior chest pain. Did report an episode of bright red bleeding with bowel movement today. History of esophageal varices. Laboratory studies were reviewed and are unremarkable. EKG shows sinus tachycardia. Chest x-ray shows possible pneumonia. IV antibiotics were initiated after blood cultures were collected. Given patient's history and multiple complaints, he will be admitted to the hospital for further evaluation and treatment. This patient's care was discussed with my attending Dr. Noble. - Lab Data Result diagrams: 07/10/21 18:35 07/10/21 Unknown Lab Results 07/10/21 07/10/21 07/10/21 Range/Units 18:35 18:35 18:35 WBC 4.2 (3.8-10.6) k/uL RBC 4.39 (4.30-5.90) m/uL Hgb 15.0 (13.0-17.5) gm/dL Hct 43.3 (39.0-53.0) % MCV 98.6 (80.0-100.0) fL MCH 34.2 (25.0-35.0) pg MCHC 34.6 (31.0-37.0) g/dL RDW 13.8 (11.5-15.5) % Plt Count 95 L (150-450) k/uL MPV 8.6 Neutrophils % 58 % Lymphocytes % 30 % Monocytes % 8 % Eosinophils % 2 % Basophils % 1 % Neutrophils # 2.4 (1.3-7.7) k/uL Lymphocytes # 1.3 (1.0-4.8) k/uL Monocytes # 0.3 (0-1.0) k/uL Eosinophils # 0.1 (0-0.7) k/uL Basophils # 0.0 (0-0.2) k/uL PT 11.7 (9.0-12.0) sec INR 1.1 (<1.2) APTT 23.7 (22.0-30.0) sec Sodium (137-145) mmol/L Potassium (3.5-5.1) mmol/L Chloride (98-107) mmol/L Carbon Dioxide (22-30) mmol/L Anion Gap mmol/L BUN (9-20) mg/dL Creatinine (0.66-1.25) mg/dL Est GFR (CKD-EPI)AfAm (>60 ml/min/1.73 sqM) Est GFR (CKD-EPI)NonAf (>60 ml/min/1.73 sqM) Glucose (74-99) mg/dL Plasma Lactic Acid Hitesh (0.7-2.0) mmol/L Calcium (8.4-10.2) mg/dL Magnesium (1.6-2.3) mg/dL Total Bilirubin (0.2-1.3) mg/dL AST (17-59) U/L ALT (4-49) U/L Alkaline Phosphatase (38-126) U/L Troponin I <0.012 (0.000-0.034) ng/mL NT-Pro-B Natriuret Pep pg/mL Total Protein (6.3-8.2) g/dL Albumin (3.5-5.0) g/dL Urine Color Urine Appearance (Clear) Urine pH (5.0-8.0) Ur Specific [place] (1.001-1.035) Urine Protein (Negative) Urine Glucose (UA) (Negative) Urine Ketones (Negative) Urine Blood (Negative) Urine Nitrite (Negative) Urine Bilirubin (Negative) Urine Urobilinogen (<2.0) mg/dL Ur Leukocyte Esterase (Negative) Coronavirus (PCR) (Not Detectd) 07/10/21 07/10/21 07/10/21 Range/Units 19:22 22:13 Unknown WBC (3.8-10.6) k/uL RBC (4.30-5.90) m/uL Hgb (13.0-17.5) gm/dL Hct (39.0-53.0) % MCV (80.0-100.0) fL MCH (25.0-35.0) pg MCHC (31.0-37.0) g/dL RDW (11.5-15.5) % Plt Count (150-450) k/uL MPV Neutrophils % % Lymphocytes % % Monocytes % % Eosinophils % % Basophils % % Neutrophils # (1.3-7.7) k/uL Lymphocytes # (1.0-4.8) k/uL Monocytes # (0-1.0) k/uL Eosinophils # (0-0.7) k/uL Basophils # (0-0.2) k/uL PT (9.0-12.0) sec INR (<1.2) APTT (22.0-30.0) sec Sodium 140 (137-145) mmol/L Potassium 4.3 (3.5-5.1) mmol/L Chloride 105 (98-107) mmol/L Carbon Dioxide 26 (22-30) mmol/L Anion Gap 9 mmol/L BUN 15 (9-20) mg/dL Creatinine 1.14 (0.66-1.25) mg/dL Est GFR (CKD-EPI)AfAm 78 (>60 ml/min/1.73 sqM) Est GFR (CKD-EPI)NonAf 68 (>60 ml/min/1.73 sqM) Glucose 121 H (74-99) mg/dL Plasma Lactic Acid Hitesh (0.7-2.0) mmol/L Calcium 9.2 (8.4-10.2) mg/dL Magnesium 1.5 L (1.6-2.3) mg/dL Total Bilirubin 1.3 (0.2-1.3) mg/dL AST 50 (17-59) U/L ALT 29 (4-49) U/L Alkaline Phosphatase 126 (38-126) U/L Troponin I (0.000-0.034) ng/mL NT-Pro-B Natriuret Pep pg/mL Total Protein 7.9 (6.3-8.2) g/dL Albumin 4.0 (3.5-5.0) g/dL Urine Color Light Yellow Urine Appearance Clear (Clear) Urine pH 7.0 (5.0-8.0) Ur Specific [place] 1.008 (1.001-1.035) Urine Protein Negative (Negative) Urine Glucose (UA) Trace H (Negative) Urine Ketones Negative (Negative) Urine Blood Negative (Negative) Urine Nitrite Negative (Negative) Urine Bilirubin Negative (Negative) Urine Urobilinogen <2.0 (<2.0) mg/dL Ur Leukocyte Esterase Negative (Negative) Coronavirus (PCR) Not Detected (Not Detectd) 07/10/21 07/10/21 07/10/21 Range/Units Unknown Unknown 23:59 WBC (3.8-10.6) k/uL RBC (4.30-5.90) m/uL Hgb (13.0-17.5) gm/dL Hct (39.0-53.0) % MCV (80.0-100.0) fL MCH (25.0-35.0) pg MCHC (31.0-37.0) g/dL RDW (11.5-15.5) % Plt Count (150-450) k/uL MPV Neutrophils % % Lymphocytes % % Monocytes % % Eosinophils % % Basophils % % Neutrophils # (1.3-7.7) k/uL Lymphocytes # (1.0-4.8) k/uL Monocytes # (0-1.0) k/uL Eosinophils # (0-0.7) k/uL Basophils # (0-0.2) k/uL PT (9.0-12.0) sec INR (<1.2) APTT (22.0-30.0) sec Sodium (137-145) mmol/L Potassium (3.5-5.1) mmol/L Chloride (98-107) mmol/L Carbon Dioxide (22-30) mmol/L Anion Gap mmol/L BUN (9-20) mg/dL Creatinine (0.66-1.25) mg/dL Est GFR (CKD-EPI)AfAm (>60 ml/min/1.73 sqM) Est GFR (CKD-EPI)NonAf (>60 ml/min/1.73 sqM) Glucose (74-99) mg/dL Plasma Lactic Acid Hitesh 1.7 (0.7-2.0) mmol/L Calcium (8.4-10.2) mg/dL Magnesium (1.6-2.3) mg/dL Total Bilirubin (0.2-1.3) mg/dL AST (17-59) U/L ALT (4-49) U/L Alkaline Phosphatase (38-126) U/L Troponin I <0.012 (0.000-0.034) ng/mL NT-Pro-B Natriuret Pep 514 pg/mL Total Protein (6.3-8.2) g/dL Albumin (3.5-5.0) g/dL Urine Color Urine Appearance (Clear) Urine pH (5.0-8.0) Ur Specific [place] (1.001-1.035) Urine Protein (Negative) Urine Glucose (UA) (Negative) Urine Ketones (Negative) Urine Blood (Negative) Urine Nitrite (Negative) Urine Bilirubin (Negative) Urine Urobilinogen (<2.0) mg/dL Ur Leukocyte Esterase (Negative) Coronavirus (PCR) (Not Detectd) - EKG Data EKG shows normal: sinus rhythm Rate: tachycardia EKG Comments: EKG was obtained at 1831 showing sinus tachycardia. Ventricular rate 100, MA interval 152, QRS duration 75, QT/QTc 347/404. Interpretation abnormal rhythm ECG. - Radiology Data Radiology results: report reviewed, image reviewed CT of the abdomen and pelvis with contrast was obtained. Report was reviewed in its entirety. Impression per Dr. Stephens is no acute process. Chronic liver findings. Two-view chest x-ray was obtained. Report was reviewed in its entirety. Impression per Dr. Stephens is lingular infiltrate, can correlate with a clinical diagnosis of pneumonia. Disposition Clinical Impression: Pneumonia, Chest pain Disposition: ADMITTED IP TO THIS [facility] Condition: Serious Decision Date: 07/11/21
[2021-07-10 19:05] LABS: INR 1.1 (<1.2)
[2021-07-10 19:06] LABS: Partial Thromboplastin Time 23.7 sec (22.0-30.0); Prothrombin Time 11.7 sec (9.0-12.0)
[2021-07-10 19:06] LABS: Calcium 9.2 mg/dL (8.4-10.2); Magnesium 1.5 mg/dL (1.6-2.3); Potassium 4.3 mmol/L (3.5-5.1); Total Bilirubin 1.3 mg/dL (0.2-1.3); Total Protein 7.9 g/dL (6.3-8.2)
[2021-07-10 19:22] LABS: Basophils % (A) 1 %; Eosinophils # (A) 0.1 k/uL (0-0.7); Eosinophils % (A) 2 %; HCT 43.3 % (39.0-53.0); Lymphocytes # (A) 1.3 k/uL (1.0-4.8); Lymphocytes % (A) 30 %; MCH 34.2 pg (25.0-35.0); MCHC 34.6 g/dL (31.0-37.0); MCV 98.6 fL (80.0-100.0); Mean Platelet Volume 8.6; Monocytes # (A) 0.3 k/uL (0-1.0); Monocytes % (A) 8 %; Neutrophils # (A) 2.4 k/uL (1.3-7.7); Neutrophils % (A) 58 %; RBC 4.39 m/uL (4.30-5.90); RDW 13.8 % (11.5-15.5); WBC 4.2 k/uL (3.8-10.6)
[2021-07-10 19:48] LABS: Appearance,Urine Clear (Clear); Bilirubin,Urine Negative (Negative); Blood,Urine Negative (Negative); Color,Urine Light Yellow; Glucose,Urine (UA) Trace (Negative); Ketones,Urine Negative (Negative); Leukocyte Esterase,Urine Negative (Negative); Nitrite,Urine Negative (Negative); Protein,Urine Negative (Negative); Specific Gravity,Urine 1.008 (1.001-1.035); Urobilinogen,Urine <2.0 mg/dL (<2.0)
--- NOTE | 2021-07-10 19:55 | XR ---
EXAMINATION: XR chest 2V DATE AND TIME: 07/10/2021 6:45 PM CLINICAL INDICATION: Cough and shortness of breath for one week; Chest Pain TECHNIQUE: Departmental protocol COMPARISON: 07/02/2021 FINDINGS: The lungs are nearly entirely clear. However, the frontal view shows partial silhouetting of the left heart border by an ill-defined added reticular density, new since the prior study, and this suggests partial lingular infiltrate. The pleural spaces are negative. The cardiac silhouette is not enlarged. The remainder of the mediastinal silhouette is unremarkable. The skeletal structures and soft tissues are negative for acute findings. IMPRESSION: Lingular infiltrate, can correlate with a clinical diagnosis of pneumonia; suggest 9 week follow-up r adiographs to prove complete resolution.
[2021-07-10 20:07] LABS: Platelet Count 95 k/uL (150-450)
[2021-07-10] MEDS ORDERED: NITROGLYCERIN OINT 1 INCH/GM PACKET TOPICAL STA (21:06)
--- NOTE | 2021-07-10 21:53 | CT ---
EXAMINATION TYPE: CT abdomen pelvis w con DATE OF EXAM: 07/10/2021 COMPARISON: 01/28/2019 HISTORY: Abd pain CT DLP: 1310.1 mGycm Automated exposure control for dose reduction was used. TECHNIQUE: Helical acquisition of images was performed from the lung bases through the pelvis. CONTRAST: Performed without Oral Contrast and with IV Contrast, patient injected with 100ml mL of Iso loren 300. FINDINGS: LUNG BASES: No significant abnormality is appreciated. LIVER/GB: No definite focal liver lesions are noted. However, the left hepatic lobe is greater in vol ume than the right hepatic lobe, and the liver margins are lobulated. There is mild splenomegaly and abdominal varices are noted. The portal vein is widely patent, measuring 17 mm caliber. PANCREAS: No significant abnormality is seen. SPLEEN: No focal findings. There is mild splenomegaly. ADRENALS: No significant abnormality is seen. KIDNEYS: No significant abnormality is seen. PERITONEAL CAVITY: No pneumoperitoneum and no peritoneal fluid. RETROPERITONEAL ADENOPATHY: None visualized REPRODUCTIVE ORGANS: No significant abnormality is seen URINARY BLADDER: No significant abnormality is seen. PELVIC ADENOPATHY: None visualized. OSSEOUS STRUCTURES: No significant abnormality is seen. BOWEL: No significant abnormality is seen. OTHER: No acute vascular findings. IMPRESSION: 1. NO ACUTE CT PROCESS. 2. CHRONIC [id number] FINDINGS NOTED.
[2021-07-11] MEDS ORDERED: NALOXONE 0.4 MG/ML 1 ML VIAL IV PRN (00:05)
[2021-07-11] MEDS ORDERED: HYDROmorphone 0.5 MG/0.5 ML SYRINGE IVP PRN (00:05)
[2021-07-11] MEDS ORDERED: AZITHROMYCIN 500 MG in SODIUM CHLORIDE 0.9% 250 ML IVPB STA (00:11)
[2021-07-11] MEDS: SODIUM CHLORIDE 0.9% 1,000 ML IV SCH ×2 (00:40→12:35)
[2021-07-11] MEDS: ONDANSETRON 4 MG/2 ML VIAL IVP PRN (00:40)
[2021-07-11] MEDS: hydrALAZINE HCL 50 MG TAB PO SCH ×4 (00:44→20:28)
[2021-07-11] MEDS: ALPRAZolam 0.25 MG TAB PO PRN ×2 (02:06→20:32)
[2021-07-11] MEDS ORDERED: HYDROmorphone 1 MG/ML 1 ML SYRINGE IVP PRN (05:04)
[2021-07-11 06:32] LABS: Glucose,Whole Blood 132 mg/dL (75-99)
[2021-07-11] MEDS: SUCRALFATE 1 GM TAB PO SCH ×3 (06:39→17:46)
[2021-07-11] MEDS: POTASSIUM CHLORIDE ER 20 MEQ TAB.ER PO SCH ×2 (08:35→20:28)
[2021-07-11] MEDS: FERROUS SULFATE 325 MG TAB PO SCH (08:35)
[2021-07-11] MEDS: DOXAZOSIN 1 MG TAB PO SCH (08:35)
[2021-07-11] MEDS: MAGNESIUM OXIDE 400 MG TAB PO SCH ×2 (08:35→20:28)
[2021-07-11] MEDS: TAMSULOSIN 0.4 MG CAP.ER.24H PO SCH (08:36)
[2021-07-11] MEDS: METOPROLOL SUCCINATE (ER) 100 MG TAB.ER.24H PO SCH ×2 (08:36→20:28)
[2021-07-11] MEDS: LOSARTAN 50 MG TAB PO SCH (08:36)
[2021-07-11] MEDS: FOLIC ACID 1 MG TAB PO SCH (08:36)
[2021-07-11] MEDS: ATORVASTATIN 40 MG TAB PO SCH (08:36)
[2021-07-11] MEDS: APIXABAN 5 MG TAB PO SCH ×2 (08:36→20:28)
[2021-07-11] MEDS: ACETAMINOPHEN TAB 325 MG TAB PO PRN ×2 (08:47→22:07)
[2021-07-11] MEDS ORDERED: PANTOPRAZOLE 40 MG/10 ML VIAL IV SCH (09:00)
--- NOTE | 2021-07-11 11:37 | P.CRDCN ---
History of Present Illness Consult date: 07/11/21 History of present illness: HISTORY OF PRESENT ILLNESS: This is a 66-year-old male with a past medical history significant for alcohol abuse, diabetes, hypertension, hyperlipidemia, COPD, TIAs, and paroxysmal atrial fibrillation. 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 We have been asked to see the patient in consultation for chest pain. Patient examined at the bedside. Patient was recently admitted to the hospital last week for shortness of breath and chest pain. The patient was discharged home in stable condition. The patient presents back to the hospital with worsening shortness of breath, cough, and fever at home. The patient reports he has had a nonproductive cough at home. He thinks he was running a fever at home as he was having hot and cold spells. The patient reports chest pain in the middle of his chest that is worse with deep inspiration and with coughing. He denies chest pain at rest. * EKG reveals sinus tachycardia with no signs of acute ischemia * Chest xray lingular infiltrate can correlate with a clinical diagnosis of pneumonia * Laboratory data: WBC 4.2. Hemoglobin 15.0. Platelet count 95. Sodium 140. Potassium 4.3. BUN 15. Creatinine 1.14. Lactic acid 1.7. Troponin negative 3. Magnesium 1.5. * Current home cardiac medications include metoprolol succinate 100 mg twice a day, hydralazine 50 mg 3 times a day, losartan 150 mg daily, Cardura 1 mg daily, Lipitor 40 mg daily, and Eliquis 5 mg twice a day * Most recent echocardiogram obtained in March 2021 revealed ejection fraction 55-60%, trace mitral regurgitation, and trace tricuspid regurgitation * Patient underwent limited echo in June 2021 revealing ejection fraction 55-60% with no pericardial effusion * Patient underwent Lexiscan stress test in March 2021 which was negative for ischemia. REVIEW OF SYSTEMS: At the time of my exam: CONSTITUTIONAL: Denies fever or chills. HEENT: Denies blurred vision, vision changes, or eye pain. Denies hemoptysis CARDIOVASCULAR: Denies chest pain. Denies orthopnea. Denies PND. Denies palpitations RESPIRATORY: Denies shortness of breath. GASTROINTESTINAL: Denies abdominal pain. Denies nausea or vomiting. HEMATOLOGIC: Denies bleeding disorders. GENITOURINARY: Denies any blood in urine. SKIN: Denies pruitis. Denies rash. PHYSICAL EXAM: VITAL SIGNS: Reviewed. GENERAL: Well-developed in no acute distress. HEENT: Head is normocephalic. Pupils are equal, round. Sclerae anicteric. Mucous membranes of the mouth are moist. Neck supple. No JVD or thyromegaly LUNGS: Respirations even and unlabored. Lungs diminished to auscultation bilaterally. HEART: Regular rate and rhythm. S1 and S2 heard. ABDOMEN: Soft. Nondistended. Nontender. EXTREMITIES: Normal range of motion. No clubbing or cyanosis. Peripheral pulses intact. No lower extremity edema NEUROLOGIC: Awake and alert. Oriented x 3. ASSESSMENT: Shortness of breath Pneumonia Chest pain, atypical, pleuritic, troponins negative 3 Paroxysmal atrial fibrillation Hypertension Hyperlipidemia Diabetes History of alcohol use COPD History of TIA Medication noncompliance PLAN: An acute coronary event has been ruled out Continue home cardiac medications Reinforced importance of medication compliance with patient Recommend abstinence from alcohol No further recommendations from a cardiac standpoint We will sign off. Please reconsult if needed Nurse practitioner note has been reviewed by physician. Signing provider agrees with the documented findings, assessment, and plan of care. Past Medical History Past Medical History: Atrial Fibrillation, Chest Pain / Angina, COPD, CVA/TIA, Diabetes Mellitus, GERD/Reflux, GI Bleed, Hearing Disorder / Deafness, Hyperlipidemia, Hypertension, Liver Disease, Pneumonia, Prostate Disorder, Pulmonary Embolus (PE) Additional Past Medical History / Comment(s): GI bleed/ esophageal varicies banded. Other hx: Alcoholism, alcohol withdrawal DTs and possibly a seizure in 2018 r/t withdrawal, chronic alcoholic cirrhosis with portal hypertension and previous history of upper and lower GI bleeding, esophageal varices, previous history of childhood seizure which he outgrew not taking any antiepileptic medication, pulmonary embolism x 2 R lung, TIA, diverticulosis, chronic lower bilateral extremity ankle edema if he walks a lot, previous history of septicemia, cervical disc disease, chronic neck pain, chronic back pain with r sided sciatica, degenerative arthritis involving the lower back, scoliosis, tinnitus, vitamin D deficiency, iron anemia, chronic thrombocytopenia, denies M RSA, C-DIFF -2018 History of Any Multi-Drug Resistant Organisms: MRSA Date of last positivie culture/infection: 03/17/18 MDRO Source:: stomach Past Surgical History: Appendectomy, Cholecystectomy Additional Past Surgical History / Comment(s): EGDs/esophageal varicies bandin gs, colonoscopies. Past Anesthesia/Blood Transfusion Reactions: No Reported Reaction Additional Past Anesthesia/Blood Transfusion Reaction / Comment(s): after appendix removed sob Past Psychological History: Anxiety, Depression Additional Psychological History / Comment(s): Pt resides in a 3/4 house. He uses a cane prn. He gets to appts by [employer] bus Smoking Status: Never smoker, Second hand smoke exposure Past Alcohol Use History: None Reported Additional Past Alcohol Use History / Comment(s): Pt has hx of alcohol abuse. In rehab program for 3-4 weeks Past Drug Use History: None Reported - Past Family History Mother Family Medical History: COPD, CVA/TIA, Dementia Additional Family Medical History / Comment(s): from a stroke Father Family Medical History: Pneumonia Additional Family Medical History / Comment(s): Father of pneumonia when he was close to 80 yrs old. Medications and Allergies Home Medications Medication Instructions Recorded Confirmed Type Ferrous Sulfate [Iron (65 MG 325 mg PO DAILY #30 tab 06/07/19 07/10/21 Rx Elemental)] Sucralfate [Carafate] 1 gm PO AC-TID #90 tablet 06/07/19 07/10/21 Rx Folic Acid 1 mg PO DAILY 01/07/20 07/10/21 History Tamsulosin [Flomax] 0.4 mg PO DAILY 01/07/20 07/10/21 History traZODone HCL 50 mg PO HS PRN 01/07/20 07/10/21 History Ergocalciferol [Vitamin D2 (1250 1,250 mcg PO Q30D 10/30/20 07/10/21 History Mcg = 84966 Iu)] Naproxen 500 mg PO BID PRN 10/30/20 07/10/21 History Doxazosin [Cardura] 1 mg PO DAILY 03/02/21 07/10/21 History Omeprazole 20 mg PO DAILY 03/02/21 07/10/21 History Potassium Chloride ER [K-Dur 20] 20 meq PO BID 03/02/21 07/10/21 History Thiamine [Vitamin B-1] 100 mg PO BID-W/MEALS #60 tab 03/04/21 07/10/21 Rx HYDROcodone/APAP 5-325MG [Thrall 1 tab PO Q6H PRN 04/01/21 07/10/21 History 5-325] Magnesium Oxide [Mag-Ox] 400 mg PO BID #60 tab 04/03/21 07/10/21 Rx Atorvastatin [Lipitor] 40 mg PO DAILY 30 Days #30 tab 04/22/21 07/10/21 Rx Losartan [Cozaar] 150 mg PO DAILY 30 Days #90 tab 04/24/21 07/10/21 Rx Apixaban [Eliquis] 5 mg PO BID 30 Days #60 tab 05/27/21 07/10/21 Rx Metoprolol Succinate (ER) [Toprol 100 mg PO BID 30 Days #60 tab 05/27/21 07/10/21 Rx XL] hydrALAZINE HCL [Apresoline] 50 mg PO TID #90 tab 07/04/21 07/10/21 Rx Allergies Allergy/AdvReac Type Severity Reaction Status Date / Time adhesive tape Allergy Rash/Hives Verified 07/02/21 21:12 latex Allergy Unknown Verified 07/02/21 21:12 egg AdvReac Nausea & Verified 07/02/21 21:12 Vomiting lisinopril AdvReac EYES Verified 07/02/21 21:12 BURN&ITCH/WEAKNESS tomato AdvReac Nausea & Verified 07/02/21 21:12 Vomiting & Diarrhea Physical Exam Vitals: Vital Signs Temp Pulse Pulse Resp BP BP Pulse Ox 07/11/21 08:33 97.9 F 115 H 17 118/71 97 07/11/21 04:30 97.4 F L 119 H 18 139/82 97 07/11/21 04:00 108 H 18 118/84 95 07/11/21 03:00 120 H 18 95 07/11/21 02:00 18 118/65 96 07/11/21 00:44 108 H 18 143/104 95 07/10/21 21:22 92 18 175/102 95 07/10/21 19:21 97 18 170/103 99 07/10/21 18:18 107 H 07/10/21 18:08 98.5 F 107 H 16 205/104 96 Intake and Output 07/10/21 07/11/21 07/11/21 22:59 06:59 14:59 Output Total 150 Balance -150 Output: Urine 150 Other: Voiding Method Urinal Urinal Weight 90.718 kg 90.718 kg Results 07/10/21 18:35 07/10/21 Unknown Cardiac Enzymes 07/10/21 07/10/21 07/10/21 Range/Units 18:35 Unknown 23:59 AST 50 (17-59) U/L Troponin I <0.012 <0.012 (0.000-0.034) ng/mL Coagulation 07/10/21 Range/Units 18:35 PT 11.7 (9.0-12.0) sec APTT 23.7 (22.0-30.0) sec CBC 07/10/21 Range/Units 18:35 WBC 4.2 (3.8-10.6) k/uL RBC 4.39 (4.30-5.90) m/uL Hgb 15.0 (13.0-17.5) gm/dL Hct 43.3 (39.0-53.0) % Plt Count 95 L (150-450) k/uL Comprehensive Metabolic Panel 07/10/21 Range/Units Unknown Sodium 140 (137-145) mmol/L Potassium 4.3 (3.5-5.1) mmol/L Chloride 105 (98-107) mmol/L Carbon Dioxide 26 (22-30) mmol/L BUN 15 (9-20) mg/dL Creatinine 1.14 (0.66-1.25) mg/dL Glucose 121 H (74-99) mg/dL Calcium 9.2 (8.4-10.2) mg/dL AST 50 (17-59) U/L ALT 29 (4-49) U/L Alkaline Phosphatase 126 (38-126) U/L Total Protein 7.9 (6.3-8.2) g/dL Albumin 4.0 (3.5-5.0) g/dL Current Medications Generic Name Dose Route Start Last Admin Trade Name Freq PRN Reason Stop Dose Admin Acetaminophen 650 mg 07/11/21 00:05 07/11/21 08:47 Acetaminophen Tab 325 Mg Tab PO 650 mg Q6HR PRN Administration Mild Pain or Fever > 100.5 Alprazolam 0.25 mg 07/11/21 00:05 07/11/21 02:06 Alprazolam 0.25 Mg Tab PO 0.25 mg Q6HR PRN Administration Anxiety Apixaban 5 mg 07/11/21 09:00 07/11/21 08:36 Apixaban 5 Mg Tab PO 5 mg BID TANYA Administration Protocol Atorvastatin Calcium 40 mg 07/11/21 09:00 07/11/21 08:36 Atorvastatin 40 Mg Tab PO 40 mg DAILY TANYA Administration Doxazosin Mesylate 1 mg 07/11/21 09:00 07/11/21 08:35 Doxazosin 1 Mg Tab PO 1 mg DAILY TANYA Administration Ferrous Sulfate 325 mg 07/11/21 09:00 07/11/21 08:35 Ferrous Sulfate 325 Mg Tab PO 325 mg DAILY TANYA Administration Folic Acid 1 mg 07/11/21 09:00 07/11/21 08:36 Folic Acid 1 Mg Tab PO 1 mg DAILY TANYA Administration Hydralazine HCl 50 mg 07/11/21 00:30 07/11/21 08:35 Hydralazine Hcl 50 Mg Tab PO 50 mg TID TAYNA Administration Hydromorphone HCl 0.5 mg 07/11/21 05:04 07/11/21 05:17 Hydromorphone 1 Mg/Ml 1 Ml Syringe IVP 0.5 mg Q3HR PRN Administration Moderate Pain Sodium Chloride 1,000 mls @ 75 mls/hr 07/11/21 00:15 07/11/21 00:40 Saline 0.9% IV 75 mls/hr .[id number] TANYA Administration Losartan Potassium 150 mg 07/11/21 09:00 07/11/21 08:36 Losartan 50 Mg Tab PO 150 mg DAILY TANYA Administration Magnesium Oxide 400 mg 07/11/21 09:00 07/11/21 08:35 Magnesium Oxide 400 Mg Tab PO 400 mg BID TANYA Administration Metoprolol Succinate 100 mg 07/11/21 09:00 07/11/21 08:36 Metoprolol Succinate (Er) 100 Mg Tab.Er.24h PO 100 mg BID TANYA Administration Naloxone HCl 0.2 mg 07/11/21 00:05 Naloxone 0.4 Mg/Ml 1 Ml Vial IV Q2M PRN Opioid Reversal Ondansetron HCl 4 mg 07/11/21 00:05 07/11/21 00:40 Ondansetron 4 Mg/2 Ml Vial IVP 4 mg Q8HR PRN Administration Nausea And Vomiting Pantoprazole Sodium 40 mg 07/11/21 09:00 07/11/21 08:35 Pantoprazole 40 Mg/10 Ml Vial IV 40 mg DAILY TANYA Administration Potassium Chloride 20 meq 07/11/21 09:00 07/11/21 08:35 Potassium Chloride Er 20 Meq Tab.Er PO 20 meq BID TANYA Administration Sucralfate 1 gm 07/11/21 07:30 07/11/21 06:39 Sucralfate 1 Gm Tab PO 1 gm AC-TID TANYA Administration Tamsulosin HCl 0.4 mg 07/11/21 09:00 07/11/21 08:36 Tamsulosin 0.4 Mg Cap.Er.24h PO 0.4 mg DAILY TANYA Administration Intake and Output 07/10/21 07/11/21 07/11/21 22:59 06:59 14:59 Output Total 150 Balance -150 Output: Urine 150 Other: Voiding Method Urinal Urinal Weight 90.718 kg 90.718 kg 07/10/21 18:35 07/10/21 Unknown
[2021-07-11 11:42] LABS: Glucose,Whole Blood 219 mg/dL (75-99)
[2021-07-11] MEDS: MAGNESIUM SULFATE-D5W PMX 1 GM in DEXTROSE/WATER 1 100ML.BAG IVPB SCH ×2 (12:35→13:49)
[2021-07-11] MEDS ORDERED: traZODone HCL 50 MG TAB PO PRN (13:23)
[2021-07-11] MEDS ORDERED: HYDROcodone/APAP 5-325MG 1 EACH TAB PO PRN (13:23)
[2021-07-11 16:26] LABS: Glucose,Whole Blood 122 mg/dL (75-99)
[2021-07-11] MEDS: THIAMINE 100 MG TAB PO SCH (17:46)
--- NOTE | 2021-07-11 17:54 | HP ---
HISTORY AND PHYSICAL CHIEF COMPLAINT: Chest pain and shortness of breath. HISTORY OF PRESENT ILLNESS: This is another recent admission for this gentleman who just went home the other day. He comes into the hospital frequently with chest pain and has a history of coronary artery disease. Usually his problem is that his blood pressure is extremely high because he does not take his medicines faithfully. He also is an alcoholic. He called the night prior to admission and said that he was having shortness of breath and chest pain and was directed to the emergency room. There it was discovered that he had bronchial pneumonia. He denied any chest pain. His blood pressure was normal. He has had no sputum production, hemoptysis, syncope, confusion, etc. REVIEW OF SYSTEMS: Otherwise unremarkable. He has had no diaphoresis, abdominal pain, nausea, vomiting, diarrhea, melena, urinary complaints, etc. Past medical history, family history, and personal and social histories are all otherwise unremarkable unchanged from his recent admitting and discharge summaries. PHYSICAL EXAMINATION: Blood pressure 138/74 with a pulse of 88, respirations of 34, and he is afebrile. In general he appeared to be in no acute distress. Skin color is normal. Skin is warm and dry. Lymph nodes are not enlarged. Head, ears, eyes, nose, mouth and throat were normal. Neck veins were not distended. The chest was clear, but there are scattered rales at the bases. Cardiac exam is normal. The abdomen is soft and nontender. Extremities are normal. Neurologically he is intact. He is admitted to the hospital with the diagnoses: 1. Bronchopneumonia. 2. History of hypertension. 3. History of alcoholism. PLAN: 1. Bedrest. 2. IV fluids. 3. IV antibiotics. 4. Updrafts. MMODL / IJN: [id number] /
[2021-07-11 20:34] LABS: Glucose,Whole Blood 97 mg/dL (75-99)
[2021-07-12] MEDS: THIAMINE 100 MG TAB PO SCH ×2 (06:24→16:33)
[2021-07-12] MEDS: PANTOPRAZOLE 40 MG TABLET PO SCH (06:24)
[2021-07-12] MEDS: SUCRALFATE 1 GM TAB PO SCH ×3 (06:24→16:33)
[2021-07-12] MEDS: SODIUM CHLORIDE 0.9% 1,000 ML IV SCH ×2 (06:25→16:33)
[2021-07-12 06:27] LABS: Glucose,Whole Blood 127 mg/dL (75-99)
[2021-07-12] MEDS: hydrALAZINE HCL 50 MG TAB PO SCH ×3 (08:48→20:40)
[2021-07-12] MEDS: POTASSIUM CHLORIDE ER 20 MEQ TAB.ER PO SCH ×2 (08:48→20:40)
[2021-07-12] MEDS: FOLIC ACID 1 MG TAB PO SCH (08:48)
[2021-07-12] MEDS: MAGNESIUM OXIDE 400 MG TAB PO SCH ×2 (08:48→20:39)
[2021-07-12] MEDS: DOXAZOSIN 1 MG TAB PO SCH (08:48)
[2021-07-12] MEDS: LOSARTAN 50 MG TAB PO SCH (08:48)
[2021-07-12] MEDS: METOPROLOL SUCCINATE (ER) 100 MG TAB.ER.24H PO SCH ×2 (08:48→20:39)
[2021-07-12] MEDS: FERROUS SULFATE 325 MG TAB PO SCH (08:48)
[2021-07-12] MEDS: ATORVASTATIN 40 MG TAB PO SCH (08:48)
[2021-07-12] MEDS: TAMSULOSIN 0.4 MG CAP.ER.24H PO SCH (08:48)
[2021-07-12] MEDS: APIXABAN 5 MG TAB PO SCH ×2 (08:48→20:39)
[2021-07-12] MEDS: ACETAMINOPHEN TAB 325 MG TAB PO PRN ×2 (08:49→22:10)
[2021-07-12 09:10] LABS: Basophils % (A) 0 %; Eosinophils # (A) 0.1 k/uL (0-0.7); Eosinophils % (A) 3 %; HCT 41.7 % (39.0-53.0); HGB 13.8 gm/dL (13.0-17.5); Lymphocytes # (A) 0.7 k/uL (1.0-4.8); Lymphocytes % (A) 26 %; MCH 33.8 pg (25.0-35.0); MCV 102.3 fL (80.0-100.0); Macrocytosis Slight; Mean Platelet Volume 9.2; Monocytes # (A) 0.2 k/uL (0-1.0); Monocytes % (A) 8 %; Neutrophils # (A) 1.6 k/uL (1.3-7.7); Neutrophils % (A) 61 %; RBC 4.07 m/uL (4.30-5.90); RDW 14.1 % (11.5-15.5); WBC 2.7 k/uL (3.8-10.6)
[2021-07-12 09:15] LABS: Platelet Count 74 k/uL (150-450)
[2021-07-12 09:28] LABS: Calcium 8.3 mg/dL (8.4-10.2); Potassium 4.3 mmol/L (3.5-5.1)
[2021-07-12 11:40] LABS: Glucose,Whole Blood 131 mg/dL (75-99)
[2021-07-12 16:43] LABS: Glucose,Whole Blood 91 mg/dL (75-99)
--- NOTE | 2021-07-12 17:40 | PN ---
PROGRESS NOTE CHIEF COMPLAINT: Pneumonitis. HISTORY OF PRESENT ILLNESS: This gentleman is doing fairly well. He is not short of breath and he has had no fever or chills. Vital signs have been normal. PHYSICAL EXAMINATION: Chest is clear and the cardiac exam is normal. Abdomen is soft, nontender. IMPRESSION: 1. Lingular pneumonia. 2. History of hypertension. 3. History of alcoholism. PLAN: Continue with IV fluids, antibiotics and updrafts. MMODL / IJN: [id number] /
[2021-07-12 20:06] LABS: Glucose,Whole Blood 115 mg/dL (75-99)
[2021-07-12] MEDS: ALPRAZolam 0.25 MG TAB PO PRN (22:57)
[2021-07-13 06:32] LABS: Glucose,Whole Blood 123 mg/dL (75-99)
[2021-07-13] MEDS: PANTOPRAZOLE 40 MG TABLET PO SCH (06:38)
[2021-07-13] MEDS: THIAMINE 100 MG TAB PO SCH ×2 (06:38→17:27)
[2021-07-13] MEDS: SUCRALFATE 1 GM TAB PO SCH ×3 (06:38→17:27)
[2021-07-13] MEDS: SODIUM CHLORIDE 0.9% 1,000 ML IV SCH ×2 (06:38→17:31)
[2021-07-13] MEDS: TAMSULOSIN 0.4 MG CAP.ER.24H PO SCH (08:29)
[2021-07-13] MEDS: hydrALAZINE HCL 50 MG TAB PO SCH ×3 (08:29→21:40)
[2021-07-13] MEDS: FERROUS SULFATE 325 MG TAB PO SCH (08:29)
[2021-07-13] MEDS: DOXAZOSIN 1 MG TAB PO SCH (08:29)
[2021-07-13] MEDS: METOPROLOL SUCCINATE (ER) 100 MG TAB.ER.24H PO SCH ×2 (08:29→21:40)
[2021-07-13] MEDS: LOSARTAN 50 MG TAB PO SCH (08:29)
[2021-07-13] MEDS: POTASSIUM CHLORIDE ER 20 MEQ TAB.ER PO SCH ×2 (08:29→21:40)
[2021-07-13] MEDS: ATORVASTATIN 40 MG TAB PO SCH (08:30)
[2021-07-13] MEDS: APIXABAN 5 MG TAB PO SCH ×2 (08:30→21:40)
[2021-07-13] MEDS: ACETAMINOPHEN TAB 325 MG TAB PO PRN (08:30)
[2021-07-13] MEDS: MAGNESIUM OXIDE 400 MG TAB PO SCH ×2 (08:30→21:40)
[2021-07-13] MEDS: FOLIC ACID 1 MG TAB PO SCH (08:30)
[2021-07-13 11:39] LABS: Glucose,Whole Blood 143 mg/dL (75-99)
--- NOTE | 2021-07-13 14:15 | PN ---
PROGRESS NOTE CHIEF COMPLAINT: Pneumonitis. HISTORY OF PRESENT ILLNESS: This gentleman feels that he is "worse." He is describing nasal congestion and increased shortness of breath. PHYSICAL EXAMINATION: Vital signs are normal. He is afebrile. Chest is fairly clear. Occasional rales in the left anterior chest wall area. Cardiac exam is normal. Abdomen is soft, nontender. IMPRESSION: 1. Lingular pneumonia. 2. Hypertension. 3. Coronary artery disease. 4. Alcoholism. PLAN: Continue with current inpatient program. He can probably go home in the next day or two. MMODL / IJN: [id number] /
[2021-07-13] MEDS ORDERED: LORATADINE-PSEUDOEPH 5-120 MG 1 EACH TAB.ER.12H PO PRN (14:58)
[2021-07-13 16:30] LABS: Glucose,Whole Blood 131 mg/dL (75-99)
[2021-07-13] MEDS: ONDANSETRON 4 MG/2 ML VIAL IVP PRN (17:26)
[2021-07-13 20:25] LABS: Glucose,Whole Blood 123 mg/dL (75-99)
[2021-07-13] MEDS: ALPRAZolam 0.25 MG TAB PO PRN (21:40)
[2021-07-14] MEDS: ACETAMINOPHEN TAB 325 MG TAB PO PRN (00:28)
[2021-07-14 06:13] LABS: Glucose,Whole Blood 129 mg/dL (75-99)
[2021-07-14] MEDS: THIAMINE 100 MG TAB PO SCH (07:14)
[2021-07-14] MEDS: SUCRALFATE 1 GM TAB PO SCH ×2 (07:14→13:34)
[2021-07-14] MEDS: PANTOPRAZOLE 40 MG TABLET PO SCH (07:14)
[2021-07-14] MEDS: SODIUM CHLORIDE 0.9% 1,000 ML IV SCH (07:49)
[2021-07-14 08:28] VITALS: BP 148/81; PULSE 94; RESP 18; TEMP 98.1
[2021-07-14] MEDS: ATORVASTATIN 40 MG TAB PO SCH (08:29)
[2021-07-14] MEDS: POTASSIUM CHLORIDE ER 20 MEQ TAB.ER PO SCH (08:29)
[2021-07-14] MEDS: hydrALAZINE HCL 50 MG TAB PO SCH (08:29)
[2021-07-14] MEDS: LOSARTAN 50 MG TAB PO SCH (08:29)
[2021-07-14] MEDS: FOLIC ACID 1 MG TAB PO SCH (08:30)
[2021-07-14] MEDS: APIXABAN 5 MG TAB PO SCH (08:30)
[2021-07-14] MEDS: MAGNESIUM OXIDE 400 MG TAB PO SCH (08:30)
[2021-07-14] MEDS: METOPROLOL SUCCINATE (ER) 100 MG TAB.ER.24H PO SCH (08:30)
[2021-07-14] MEDS: FERROUS SULFATE 325 MG TAB PO SCH (08:30)
[2021-07-14] MEDS: DOXAZOSIN 1 MG TAB PO SCH (08:30)
[2021-07-14] MEDS: TAMSULOSIN 0.4 MG CAP.ER.24H PO SCH (08:30)
[2021-07-14 11:48] LABS: Glucose,Whole Blood 101 mg/dL (75-99)
--- NOTE | 2021-07-14 13:49 | CDI ---
Documentation Clarification Form Date: 07/14/2021 12:38:03 PM From: Cely Sheppard RN CCDS Admit Date: 07/12/2021 11:57:00 AM Patient Name: Anders Aguilar Visit Number: [id number] Discharge Date: ATTENTION: The Clinical Documentation Specialists (CDI) and [facility] Coding Staff appreciate your assistance in clarifying documentation. Please respond to the clarification below the line at the bottom and electronically sign. The CDI & [facility] Coding staff will review the response and follow-up if needed. Please note: Queries are made part of the Legal Health Record. If you have any questions, please contact the author of this message via ITS. Dr. Doug Beck Pneumonia is documented 07/11, H&P; 07/12 & 07/13, medicine progress notes which may lack sufficient clinical evidence/support in the medical record. Additional clarification is requested. History/Risk Factors:66-year-old male presents to the ED with shortness of breath and chest pain. Medical History: HTN, A-fib, Alcoholic, CAD and doesnt take his medicine faithfully.07/11, H&P. Clinical Indicators: Cardiology consult 07/11: Chest pain, atypical, pleuritic, troponins negative x 3. Acute coronary event has been ruled out. CXR 07/10: Lungs are nearly entirely clear. However, the frontal view shows partial silhouetting of the left heart border by an ill-defined added reticular density, new since prior study and suggests partial lingular infiltrate. Treatment: 07/10 Ceftriaxone @gm IVPB x 1; 07/11 Azithromycin 500mg IVPB x 1; Please clarify if Pneumonia is a valid diagnosis? [ ] Yes, (Specify type) pneumonia is present as evidence by (additional clinical support): [ ] No, pneumonia is ruled out [ ] Other (please specify diagnosis) [ ] Unable to determine (Template Last Revised: July 2020) MTDD
--- NOTE | 2021-07-14 20:38 | DS ---
DISCHARGE SUMMARY CHIEF COMPLAINT: Shortness of breath and lingular pneumonia. HISTORY OF PRESENT ILLNESS AND PHYSICAL EXAMINATION: Details of this man's history and physical can be found in the initial workup. LABORATORY STUDIES: While he was in the hospital he had laboratory studies, details of which can be found in the laboratory section of his chart. COURSE IN THE HOSPITAL: After admission he was placed on bedrest, started his fluids, updrafts and antibiotics. He did well. He had no further fever, chills, shortness of breath, chest pain, etc. He was stable and doing well. It was felt that he could go home on the July 14. He will go home on his usual activity, diet and medication, and he will follow up in the office in several days. FINAL DIAGNOSIS: 1. Shortness of breath. 2. Chest pain. 3. Lingular pneumonitis. OPERATIONS: None. CONSULTATIONS: None. He is improved. MMODL / MICHAEL: [id number] /
--- NOTE | 2021-07-31 10:37 | MISC ---
MISCELLANOUS REPORT QUERY: No pneumonia; pneumonia ruled out. MMODL / IJN: [id number] /
== END 2021-07-14 15:13 | disposition home or self-care (01) | DRG 313 ==
LOC: EC 18:06 → 1SOBS 07-11 00:04 → 3SCARD 07-11 01:06 → 1SOBS 07-11 01:09 → 6NMEDSUR 07-11 01:12 → 3SCARD 07-11 03:52 → OBSVTOIN 07-12 11:57
PROVIDERS: ADMIT Family Medicine; ATTEND Family Medicine
DX: R07.89 Other chest pain (principal); I48.0 Paroxysmal atrial fibrillation; E11.9 Type 2 diabetes mellitus without complications; E78.5 Hyperlipidemia, unspecified; F10.20 Alcohol dependence, uncomplicated; H91.90 Unspecified hearing loss, unspecified ear; I10 Essential (primary) hypertension; Z20.822 Contact with and (suspected) exposure to COVID-19; I25.10 Atherosclerotic heart disease of native coronary artery without angina pectoris; J44.9 Chronic obstructive pulmonary disease, unspecified; Z79.01 Long term (current) use of anticoagulants; Z79.899 Other long term (current) drug therapy; Z82.3 Family history of stroke; Z82.5 Family history of asthma and other chronic lower respiratory diseases; Z86.711 Personal history of pulmonary embolism; Z86.73 Personal history of transient ischemic attack (TIA), and cerebral infarction without residual deficits; Z91.14 Patient's other noncompliance with medication regimen; Z88.8 Allergy status to other drugs, medicaments and biological substances; Z91.012 Allergy to eggs; Z91.040 Latex allergy status
CPT/HCPCS: 36415; 71046; 74177; 80048; 80053; 81003; 83605; 83735; 83880; 84484; 85025; 85610; 85730; 87040; 87635; 93005; 94760; 96361; 96365; 96366; 96367; 96375; 99285

== ENCOUNTER 2021-07-21 17:19 | Inpatient (IN) | payer MEDICARE, OTHER ==
--- NOTE | 2021-07-21 17:44 | ED ---
General Adult HPI - General Stated complaint: chest pain Time Seen by Provider: 07/21/21 17:30 - History of Present Illness Initial comments: Dictation was produced using [employer] dictation software. please excuse any grammatical, word or spelling errors. Chief Complaint: 66-year-old male past medical history of A. fib since the emergency department for 2 days of chest pain History of Present Illness: 66-year-old male. History of present illness Limited to difficulties hearing. Patient states for the last 2 days he's been having chest pain. Sharp substernal. Radiates to the left jaw and down the left upper extremity. Patient has any history of heart attacks but he does have history of A. fib. Patient takes and a coagulation medications. States that his pain is nonpleuritic. No fever. No cough. Reports that his pain is a 10 out of 10. The ROS documented in this emergency department record has been reviewed and con firmed by me. Those systems with pertinent positive or negative responses have been documented in the HPI. All other systems are other negative and/or noncontributory. PHYSICAL EXAM: General Impression: Alert and oriented x3, not in acute distress HEENT: Normocephalic atraumatic, extra-ocular movements intact, pupils equal and reactive to light bilaterally, mucous membranes moist. Cardiovascular: Tachycardic Chest: Able to complete full sentences, no retractions, no tachypnea Abdomen: abdomen soft, non-tender, non-distended, no organomegaly Musculoskeletal: Pulses present and equal in all extremities, no peripheral edema Motor: no focal deficits noted Neurological: CN II-XII grossly intact, no focal motor or sensory deficits noted Skin: Intact with no visualized rashes Psych: Normal affect and mood ED course: 66-year-old male presents to emergency department for sharp chest pain that radiates to the left jaw and down the left upper extremity. Patient has history of A. fib. He is tachycardic. Patient not hypoxic is well- appearing at the bedside. Vital signs upon arrival shows blood pressure 190 10/15/2020. Heart rate 135, rest of vital signs within acceptable limits. There is concern of aortic dissection given the patient has elevated blood pressure and sharp chest pain that radiates to the left upper extremity. Laboratory evaluation obtained. CBC is unremarkable. Coag panel is negative. D-dimer is 1.05. Metabolic panel is within acceptable limits. First troponin is negative. Serum alcohol is 227. Lipase is normal. Chest x-ray shows no acute processes. CT of the thoracic aorta shows no evidence of dissection. There does appear to be hepatic cirrhosis. Patient reevaluated at bedside tachycardic and hypertensive still. More history was obtained patient state is not been noncompliant with his medications. Significantly tachycardic in the 130s. Patient given 1 dose of 5 mg of IV metoprolol. We restarted on his home medications. Patient be admitted for serial troponins, cardiac monitoring, cardiology consultation and further care. EKG interpretation: Ventricular rate 131, sinus tachycardia,. Interval 156, care 76, QTC 399. No DE prolongation, no QTC prolongation, no ST or T-wave changes noted. EKG compared to July 10 2021 showing no changes. Overall, this EKG is unremarkable - Related Data Home Medications Medication Instructions Recorded Confirmed Folic Acid 1 mg PO DAILY 01/07/20 07/21/21 Tamsulosin [Flomax] 0.4 mg PO DAILY 01/07/20 07/21/21 traZODone HCL 50 mg PO HS PRN 01/07/20 07/21/21 Ergocalciferol [Vitamin D2 (1250 1,250 mcg PO Q30D 10/30/20 07/21/21 Mcg = 23992 Iu)] Naproxen 500 mg PO BID PRN 10/30/20 07/21/21 Doxazosin [Cardura] 1 mg PO DAILY 03/02/21 07/21/21 Omeprazole 20 mg PO DAILY 03/02/21 07/21/21 Potassium Chloride ER [K-Dur 20] 20 meq PO BID 03/02/21 07/21/21 HYDROcodone/APAP 5-325MG [[place] 1 tab PO Q6H PRN 04/01/21 07/21/21 5-325] Cyclobenzaprine [Flexeril] 10 mg PO TID PRN 07/21/21 07/21/21 Thiamine [Vitamin B-1] 100 mg PO W/LUNCH 07/21/21 07/21/21 Previous Rx's Medication Instructions Recorded Ferrous Sulfate [Iron (65 MG 325 mg PO DAILY #30 tab 06/07/19 Elemental)] Sucralfate [Carafate] 1 gm PO AC-TID #90 tablet 06/07/19 Magnesium Oxide [Mag-Ox] 400 mg PO BID #60 tab 04/03/21 Atorvastatin [Lipitor] 40 mg PO DAILY 30 Days #30 tab 04/22/21 Losartan [Cozaar] 150 mg PO DAILY 30 Days #90 tab 04/24/21 Apixaban [Eliquis] 5 mg PO BID 30 Days #60 tab 05/27/21 Metoprolol Succinate (ER) [Toprol 100 mg PO BID 30 Days #60 tab 05/27/21 XL] hydrALAZINE HCL [Apresoline] 50 mg PO TID #90 tab 07/04/21 Allergies Allergy/AdvReac Type Severity Reaction Status Date / Time adhesive tape Allergy Rash/Hives Verified 07/21/21 17:52 latex Allergy Unknown Verified 07/21/21 17:52 egg AdvReac Nausea & Verified 07/21/21 17:52 Vomiting lisinopril AdvReac EYES Verified 07/21/21 17:52 BURN&ITCH/WEAKNESS tomato AdvReac Nausea & Verified 07/21/21 17:52 Vomiting & Diarrhea Review of Systems ROS Statement: Those systems with pertinent positive or pertinent negative responses have been documented in the HPI. ROS Other: All systems not noted in ROS Statement are negative. Past Medical History Past Medical History: Atrial Fibrillation, Chest Pain / Angina, COPD, CVA/TIA, Diabetes Mellitus, GERD/Reflux, GI Bleed, Hearing Disorder / Deafness, Hyperlipidemia, Hypertension, Liver Disease, Pneumonia, Prostate Disorder, Pulmonary Embolus (PE) Additional Past Medical History / Comment(s): GI bleed/ esophageal varicies banded. Other hx: Alcoholism, alcohol withdrawal DTs and possibly a seizure in 2018 r/t withdrawal, chronic alcoholic cirrhosis with portal hypertension and previous history of upper and lower GI bleeding, esophageal varices, previous history of childhood seizure which he outgrew not taking any antiepileptic medication, pulmonary embolism x 2 R lung, TIA, diverticulosis, chronic lower bilateral extremity ankle edema if he walks a lot, previous history of septicemia, cervical disc disease, chronic neck pain, chronic back pain with r sided sciatica, degenerative arthritis involving the lower back, scoliosis, tinnitus, vitamin D deficiency, iron anemia, chronic thrombocytopenia, denies MRSA, C-DIFF 4-2018 History of Any Multi-Drug Resistant Organisms: MRSA Date of last positivie culture/infection: 03/17/18 MDRO Source:: stomach Past Surgical History: Appendectomy, Cholecystectomy Additional Past Surgical History / Comment(s): EGDs/esophageal varicies bandings, colonoscopies. Past Anesthesia/Blood Transfusion Reactions: No Reported Reaction Additional Past Anesthesia/Blood Transfusion Reaction / Comment(s): after appendix removed sob Smoking Status: Never smoker, Second hand smoke exposure - Past Family History Mother Family Medical History: COPD, CVA/TIA, Dementia Additional Family Medical History / Comment(s): from a stroke Father Family Medical History: Pneumonia Additional Family Medical History / Comment(s): Father of pneumonia when he was close to 80 yrs old. Course Vital Signs 07/21/21 07/21/21 07/21/21 17:45 19:49 20:53 Temperature 98 F 98.2 F Pulse Rate 135 H 133 H 131 H Respiratory 20 18 16 Rate Blood Pressure 196/121 195/112 191/112 O2 Sat by Pulse 95 96 97 Oximetry Medical Decision Making - Lab Data Result diagrams: 07/21/21 17:53 07/21/21 17:53 Lab Results 07/21/21 07/21/21 07/21/21 Range/Units 17:53 17:53 17:53 WBC 5.7 (3.8-10.6) k/uL RBC 4.24 L (4.30-5.90) m/uL Hgb 14.4 (13.0-17.5) gm/dL Hct 41.9 (39.0-53.0) % MCV 98.9 (80.0-100.0) fL MCH 34.0 (25.0-35.0) pg MCHC 34.4 (31.0-37.0) g/dL RDW 13.8 (11.5-15.5) % Plt Count 172 D (150-450) k/uL MPV 8.1 Neutrophils % 50 % Lymphocytes % 41 % Monocytes % 5 % Eosinophils % 2 % Basophils % 1 % Neutrophils # 2.9 (1.3-7.7) k/uL Lymphocytes # 2.3 (1.0-4.8) k/uL Monocytes # 0.3 (0-1.0) k/uL Eosinophils # 0.1 (0-0.7) k/uL Basophils # 0.1 (0-0.2) k/uL PT (9.0-12.0) sec INR (<1.2) APTT (22.0-30.0) sec D-Dimer (<0.60) mg/L FEU Sodium 145 (137-145) mmol/L Potassium 3.7 (3.5-5.1) mmol/L Chloride 107 (98-107) mmol/L Carbon Dioxide 26 (22-30) mmol/L Anion Gap 12 mmol/L BUN 9 (9-20) mg/dL Creatinine 0.91 (0.66-1.25) mg/dL Est GFR (CKD-EPI)AfAm >90 (>60 ml/min/1.73 sqM) Est GFR (CKD-EPI)NonAf 88 (>60 ml/min/1.73 sqM) Glucose 129 H (74-99) mg/dL Calcium 8.3 L (8.4-10.2) mg/dL Total Bilirubin 0.9 (0.2-1.3) mg/dL AST 66 H (17-59) U/L ALT 32 (4-49) U/L Alkaline Phosphatase 112 (38-126) U/L Troponin I <0.012 (0.000-0.034) ng/mL NT-Pro-B Natriuret Pep pg/mL Total Protein 7.9 (6.3-8.2) g/dL Albumin 4.0 (3.5-5.0) g/dL Lipase (23-300) U/L Serum Alcohol 227 H* mg/dL 07/21/21 07/21/21 07/21/21 Range/Units 17:53 19:34 21:06 WBC (3.8-10.6) k/uL RBC (4.30-5.90) m/uL Hgb (13.0-17.5) gm/dL Hct (39.0-53.0) % MCV (80.0-100.0) fL MCH (25.0-35.0) pg MCHC (31.0-37.0) g/dL RDW (11.5-15.5) % Plt Count (150-450) k/uL MPV Neutrophils % % Lymphocytes % % Monocytes % % Eosinophils % % Basophils % % Neutrophils # (1.3-7.7) k/uL Lymphocytes # (1.0-4.8) k/uL Monocytes # (0-1.0) k/uL Eosinophils # (0-0.7) k/uL Basophils # (0-0.2) k/uL PT 12.2 H (9.0-12.0) sec INR 1.1 (<1.2) APTT 22.0 (22.0-30.0) sec D-Dimer 1.05 H (<0.60) mg/L FEU Sodium (137-145) mmol/L Potassium (3.5-5.1) mmol/L Chloride (98-107) mmol/L Carbon Dioxide (22-30) mmol/L Anion Gap mmol/L BUN (9-20) mg/dL Creatinine (0.66-1.25) mg/dL Est GFR (CKD-EPI)AfAm (>60 ml/min/1.73 sqM) Est GFR (CKD-EPI)NonAf (>60 ml/min/1.73 sqM) Glucose (74-99) mg/dL Calcium (8.4-10.2) mg/dL Total Bilirubin (0.2-1.3) mg/dL AST (17-59) U/L ALT (4-49) U/L Alkaline Phosphatase (38-126) U/L Troponin I (0.000-0.034) ng/mL NT-Pro-B Natriuret Pep 42 pg/mL Total Protein (6.3-8.2) g/dL Albumin (3.5-5.0) g/dL Lipase 96 (23-300) U/L Serum Alcohol mg/dL Disposition Clinical Impression: Chest pain Disposition: ADMITTED IP TO THIS HOSP Condition: Fair Referrals: Doug Beck MD [Primary Care Provider] - 1-2 days
[2021-07-21 18:12] LABS: Basophils # (A) 0.1 k/uL (0-0.2); Basophils % (A) 1 %; Eosinophils # (A) 0.1 k/uL (0-0.7); Eosinophils % (A) 2 %; HCT 41.9 % (39.0-53.0); HGB 14.4 gm/dL (13.0-17.5); Lymphocytes # (A) 2.3 k/uL (1.0-4.8); Lymphocytes % (A) 41 %; MCHC 34.4 g/dL (31.0-37.0); MCV 98.9 fL (80.0-100.0); Mean Platelet Volume 8.1; Monocytes # (A) 0.3 k/uL (0-1.0); Monocytes % (A) 5 %; Neutrophils # (A) 2.9 k/uL (1.3-7.7); Neutrophils % (A) 50 %; RBC 4.24 m/uL (4.30-5.90); RDW 13.8 % (11.5-15.5); WBC 5.7 k/uL (3.8-10.6)
[2021-07-21 18:25] LABS: Platelet Count 172 k/uL (150-450)
[2021-07-21 18:26] LABS: ALT 32 U/L (4-49); AST 66 U/L (17-59); African American GFR (CKD) >90 (>60 ml/min/1.73 sqM); Alkaline Phosphatase 112 U/L (38-126); Anion Gap 12 mmol/L; Blood Urea Nitrogen 9 mg/dL (9-20); Calcium 8.3 mg/dL (8.4-10.2); Carbon Dioxide 26 mmol/L (22-30); Chloride 107 mmol/L (98-107); Glucose 129 mg/dL (74-99); Non-African American GFR(CKD) 88 (>60 ml/min/1.73 sqM); Potassium 3.7 mmol/L (3.5-5.1); Sodium 145 mmol/L (137-145); Total Bilirubin 0.9 mg/dL (0.2-1.3); Total Protein 7.9 g/dL (6.3-8.2)
[2021-07-21 18:28] LABS: Alcohol 227 mg/dL
--- NOTE | 2021-07-21 19:37 | XR ---
EXAMINATION TYPE: XR chest 1V portable DATE OF EXAM: 07/21/2021 6:49 PM COMPARISON:Chest radiographs from 07/10/2021, CT abdomen pelvis 07/10/2021 TECHNIQUE: XR chest 1V portable Frontal view of the chest. CLINICAL INDICATION:Male, 66 years old with history of chest pain; FINDINGS: Lungs/Pleura: Opacities projecting over the are felt to represent chronic changes given the persisten ce from prior exam. Pulmonary vascularity: Unremarkable. Heart/mediastinum: Cardiomediastinal silhouette is unremarkable. Musculoskeletal: No acute osseous pathology. Multilevel disc degeneration changes. IMPRESSION: Chronic changes without evidence for acute thoracic process.
[2021-07-21 20:11] LABS: INR 1.1 (<1.2); Prothrombin Time 12.2 sec (9.0-12.0)
[2021-07-21] MEDS ORDERED: ONDANSETRON 4 MG/2 ML VIAL IVP STA (20:54)
--- NOTE | 2021-07-21 21:04 | CT ---
EXAMINATION TYPE: CT angio thor/abd pel aorta CT DLP: 1875.9 mGycm, Automated exposure control for dose reduction was used. DATE OF EXAM: 07/21/2021 8:43 PM COMPARISON: CT abdomen pelvis 07/10/2021, 05/26/2021. CLINICAL INDICATION:Male, 66 years old with history of suspect aortic dissection, Chest pain, suspect aortic dissection. TECHNIQUE: Dissection protocol: Multiple axial CT images of the chest, abdomen, and pelvis were obtai kyle prior and to the administration of IV contrast. 3-D reformats and maximum intensity projection fo rmat were performed on a separate workstation. Then the abdomen was scanned after administration of 8 0 cc of Isovue 370 IV contrast. FINDINGS: ARTERIAL VASCULATURE: The thoracic aorta is normal in course and caliber. There is no evidence of aor tic dissection, aneurysm or acute aortic injury. Great arch vessels patent and normal in course and c aliber. Moderate atherosclerotic changes of the thoracic aorta. PULMONARY ARTERIAL VASCULATURE: Normal caliber. VENOUS SYSTEM: Unremarkable. PORTAL SYSTEM: Filling defect is felt to be laminar flow of early contrast and noncontrast flow from the inferior portal vein. A Few scattered varices are in the upper abdomen Lungs/pleura: Calcified granuloma seen within the left upper lobe. Scattered streaky atelectasis/scar ring is seen throughout the lungs. No focal consolidation, pneumothorax or pleural effusion. Heart: Within normal limits. Mediastinum: No gross evidence of adenopathy. Layering fluid is seen within the esophagus. Partially calcified lymph nodes seen in the right pulmonary hilum. Abdomen: Liver: Nodular contour to the liver. No hyperenhancing observations identified. Gallbladder and Bile ducts: Gallbladder is surgically absent. Pancreas: Unremarkable. Spleen: Arterial enhancing lesion within the spleen may represent hemangioma measuring 13 mm. There i s a splenic calcification granuloma. Splenule is present. Adrenal glands: Unremarkable. Kidneys and Ureters: No hydronephrosis subcentimeter probable renal cysts in the left superior pole. Stomach and Bowel: Scattered clonic diverticula are present. There is very mild fat stranding changes around the descending colon. No evidence of bowel obstruction. Appendix is not visualized and may be surgically absent. Peritoneum: No evidence of pneumoperitoneum, free fluid, or adenopathy. Bladder: Unremarkable. Reproductive: Prostate is normal in size measuring 46 mm in transverse dimension. Abdominal wall/soft tissues: Unremarkable. Musculoskeletal: No acute osseous abnormality. There is compression deformity of L3 is similar prior as well as T3. IMPRESSION: 1. No evidence for thoracic aortic dissection. 2. Hepatic cirrhosis with few scattered varices in the upper abdomen. 3. Colonic Diverticulosis. 4. Layering debris within the esophagus which may represent gastroesophageal reflux first esophageal dysmotility. 5. Chronic wedge deformities of T3 and L3 vertebral bodies.
[2021-07-21] MEDS ORDERED: METOPROLOL TARTRATE 5 MG/5 ML VIAL IVP STA (21:40)
[2021-07-21] MEDS ORDERED: ASPIRIN 81 MG PO STA (21:47)
[2021-07-21] MEDS: hydrALAZINE HCL 50 MG TAB PO SCH (21:58)
[2021-07-21] MEDS: NITROGLYCERIN SL TABS 0.4 MG TAB SUBLINGUAL PRN ×2 (22:02→22:23)
[2021-07-22] MEDS ORDERED: MORPHINE SULFATE 4 MG/ML SYRINGE IV STA (00:32)
[2021-07-22] MEDS ORDERED: DIAZEPAM 5 MG/ML 2 ML INJ IVP STA (02:49)
[2021-07-22] MEDS ORDERED: THIAMINE 100 MG/ML 2 ML VIAL IM STA (02:49)
[2021-07-22] MEDS ORDERED: LORazepam 2 MG/ML INJ IV PRN ×2 (02:49)
[2021-07-22] MEDS ORDERED: ONDANSETRON 4 MG/2 ML VIAL IVP STA (02:49)
[2021-07-22] MEDS: LORazepam 2 MG/ML INJ IV PRN ×2 (05:28→22:53)
[2021-07-22] MEDS: DIAZEPAM 5 MG/ML 2 ML INJ IVP SCH ×5 (06:07→20:14)
[2021-07-22] MEDS: METOPROLOL SUCCINATE (ER) 100 MG TAB.ER.24H PO SCH ×2 (08:28→21:01)
[2021-07-22] MEDS: APIXABAN 5 MG TAB PO SCH ×2 (08:28→20:15)
[2021-07-22] MEDS: LOSARTAN 50 MG TAB PO SCH (08:28)
[2021-07-22] MEDS: hydrALAZINE HCL 50 MG TAB PO SCH ×3 (08:28→21:01)
[2021-07-22] MEDS: ATORVASTATIN 40 MG TAB PO SCH (08:29)
[2021-07-22] MEDS: ASPIRIN 325 MG TAB PO SCH (08:29)
[2021-07-22 09:36] LABS: Chol/HDL Ratio 4.27 Ratio; LDL Cholesterol,Calculated 122.7 mg/dL (0.0-131.0)
[2021-07-22] MEDS: ONDANSETRON 4 MG/2 ML VIAL IVP PRN ×2 (10:21→15:47)
[2021-07-22] MEDS: THIAMINE 100 MG TAB PO SCH (18:51)
--- NOTE | 2021-07-22 20:26 | PN ---
PROGRESS NOTE DATE OF SERVICE: 07/22/2021 CHIEF COMPLAINT: Hypertension, chest pain and alcoholism. HISTORY OF PRESENT ILLNESS: This gentleman has improved slightly. He is not in DTs. He is not having any chest pain any longer. His blood pressure is coming down. PHYSICAL EXAMINATION: His chest is clear. Cardiac exam is normal. Abdomen is soft, nontender. IMPRESSION: 1. Hypertension. 2. Acute and chronic alcoholism. 3. History of atrial fibrillation. 4. Gastric varices. PLAN: Slowly increase his diet and continue to monitor his blood pressure until he is under control. MMODL / IJN: [id number] /
--- NOTE | 2021-07-22 20:26 | HP ---
HISTORY AND PHYSICAL CHIEF COMPLAINT: Chest pain. HISTORY OF PRESENT ILLNESS: This is another recent admission for this 66-year-old white male. He is in out of the hospital almost weekly. He goes home, does not take his medications, and consumes alcohol. When he came in this time, he was complaining of chest pain and his alcohol was 227. He was in atrial fibrillation, which he has been in before, and then converted to sinus rhythm. His blood pressure was 196/121. CT revealed cirrhosis and gastric varices. REVIEW OF SYSTEMS: He denies any seizures, blackouts, diplopia, hemoptysis, nausea, vomiting, hematemesis, melena, hematochezia, renal failure, dysuria, frequency, urgency, hematuria, incontinence, etc. Past medical history, family history, and personal and social histories are all otherwise unremarkable or noncontributory or unchanged from his recent admitting and discharge summaries. PHYSICAL EXAMINATION: Blood pressure 196/121 with a pulse of 135, respirations of 36, and he is afebrile. In general he appeared to be slightly disheveled. Skin color was normal. Skin was warm and dry. Lymph nodes were not enlarged. Head, ears, eyes, nose, mouth and throat were normal. Neck veins were not distended. Thyroid was not enlarged. Chest was clear. Cardiac exam demonstrated tachycardia. The abdomen was soft and nontender. There were no masses or visceromegaly. Extremities were normal. Neurologically he is intact. He is admitted to the hospital with the diagnoses: 1. Hypertension. 2. Chronic alcoholism. 3. Cirrhosis. 4. Gastric varices. PLAN: 1. Bedrest. 2. IV fluids. 3. Control hypertension. 4. Watch for DTs. MMODL / IJN: [id number] /
[2021-07-23] MEDS: DIAZEPAM 5 MG/ML 2 ML INJ IVP SCH ×7 (00:20→21:00)
[2021-07-23] MEDS: ASPIRIN 325 MG TAB PO SCH (08:00)
[2021-07-23] MEDS: LOSARTAN 50 MG TAB PO SCH (09:22)
[2021-07-23] MEDS: APIXABAN 5 MG TAB PO SCH ×2 (09:22→21:00)
[2021-07-23] MEDS: ATORVASTATIN 40 MG TAB PO SCH (09:23)
[2021-07-23] MEDS: THIAMINE 100 MG TAB PO SCH ×2 (09:23→16:48)
[2021-07-23] MEDS: hydrALAZINE HCL 50 MG TAB PO SCH ×3 (09:24→22:00)
[2021-07-23] MEDS: METOPROLOL SUCCINATE (ER) 100 MG TAB.ER.24H PO SCH ×2 (09:52→21:00)
[2021-07-23 14:56] VITALS: BMI 33.1
[2021-07-23] MEDS: ONDANSETRON 4 MG/2 ML VIAL IVP PRN (16:48)
[2021-07-24] MEDS: DIAZEPAM 5 MG/ML 2 ML INJ IVP SCH ×7 (01:07→23:39)
[2021-07-24] MEDS: hydrALAZINE HCL 50 MG TAB PO SCH ×3 (08:56→21:54)
[2021-07-24] MEDS: METOPROLOL SUCCINATE (ER) 100 MG TAB.ER.24H PO SCH ×2 (08:56→19:43)
[2021-07-24] MEDS: APIXABAN 5 MG TAB PO SCH ×2 (08:56→19:44)
[2021-07-24] MEDS: ATORVASTATIN 40 MG TAB PO SCH (08:56)
[2021-07-24] MEDS: LOSARTAN 50 MG TAB PO SCH (08:56)
[2021-07-24] MEDS: ASPIRIN 325 MG TAB PO SCH (08:56)
[2021-07-24] MEDS: THIAMINE 100 MG TAB PO SCH ×2 (08:57→18:23)
[2021-07-24] MEDS: LORazepam 2 MG/ML INJ IV PRN (09:04)
[2021-07-25] MEDS: DIAZEPAM 5 MG/ML 2 ML INJ IVP SCH ×3 (04:21→14:00)
[2021-07-25] MEDS: hydrALAZINE HCL 50 MG TAB PO SCH (09:24)
[2021-07-25] MEDS: THIAMINE 100 MG TAB PO SCH (09:24)
[2021-07-25] MEDS: APIXABAN 5 MG TAB PO SCH (09:24)
[2021-07-25] MEDS: METOPROLOL SUCCINATE (ER) 100 MG TAB.ER.24H PO SCH (09:25)
[2021-07-25] MEDS: ATORVASTATIN 40 MG TAB PO SCH (09:25)
[2021-07-25] MEDS: ASPIRIN 325 MG TAB PO SCH (09:25)
[2021-07-25] MEDS: LOSARTAN 50 MG TAB PO SCH (09:25)
[2021-07-25 15:09] VITALS: BP 146/85; PULSE 95; RESP 16; TEMP 98.2
--- NOTE | 2021-07-26 19:22 | PN ---
PROGRESS NOTE DATE OF SERVICE: 07/24/2021 CHIEF COMPLAINT: Hypertensive urgency, chest pain and alcoholism. HISTORY OF PRESENT ILLNESS: This gentleman is complaining a lot of indigestion. Blood pressure is starting to come down. PHYSICAL EXAM: Chest is clear. Cardiac exam is normal. Abdomen is soft, nontender. IMPRESSION: 1. Hypertensive urgency. 2. Alcoholism. 3. History of coronary artery disease. 4. Gastroesophageal reflux disease. PLAN: Continue to bring blood pressure under control and increase his activity. MMODL / IJN: [id number] /
--- NOTE | 2021-07-27 06:57 | DS ---
DISCHARGE SUMMARY CHIEF COMPLAINT: Hypertension, chest pain, and alcohol intoxication. HISTORY OF PRESENT ILLNESS AND PHYSICAL EXAMINATION: Details of this man's history and physical can be found in the initial workup. LABORATORY STUDIES: While he was in the hospital, he had laboratory studies, details of which can be found in the laboratory section of his chart. COURSE IN THE HOSPITAL: After admission, he was placed on bedrest, started intravenous fluids and his blood pressure was brought under control. He complained of various other issues such as indigestion, but once he was stabilized, it was felt he could go home. His problem is that he will not take medications at home, drinks and then comes into the emergency room as much to stay in the hospital for a few more days than anything else. Hopefully, he will go home and take his medications. FINAL DIAGNOSES: 1. Hypertensive urgency. 2. Chest pain. 3. History of coronary artery disease. 4. Alcoholism. OPERATIONS: None. CONSULTATION: None. He is improved. MMKEVIN / MICHAEL: [id number] /
== END 2021-07-25 16:15 | disposition home or self-care (01) | DRG 305 ==
LOC: EC 17:19 → 6NMEDSUR 21:47 → OBSVTOIN 07-23 09:04
PROVIDERS: ADMIT Family Medicine; ATTEND Family Medicine
DX: I16.0 Hypertensive urgency (principal); I25.10 Atherosclerotic heart disease of native coronary artery without angina pectoris; E11.9 Type 2 diabetes mellitus without complications; E78.5 Hyperlipidemia, unspecified; F10.229 Alcohol dependence with intoxication, unspecified; H91.90 Unspecified hearing loss, unspecified ear; I10 Essential (primary) hypertension; I48.91 Unspecified atrial fibrillation; J44.9 Chronic obstructive pulmonary disease, unspecified; I86.4 Gastric varices; K21.9 Gastro-esophageal reflux disease without esophagitis; K74.60 Unspecified cirrhosis of liver; I25.2 Old myocardial infarction; Z79.01 Long term (current) use of anticoagulants; Z86.711 Personal history of pulmonary embolism; Z86.73 Personal history of transient ischemic attack (TIA), and cerebral infarction without residual deficits; Z82.5 Family history of asthma and other chronic lower respiratory diseases; Z82.3 Family history of stroke
CPT/HCPCS: 36415; 71045; 71275; 74174; 80053; 80061; 80320; 83690; 83880; 84484; 85025; 85379; 85610; 85730; 93005; 96374; 96375; 96376; 99285

== ENCOUNTER 2021-08-09 18:59 | Emergency (ER) | payer MEDICARE, OTHER ==
[2021-08-09] MEDS ORDERED: MORPHINE SULFATE 4 MG/ML SYRINGE IVP STA ×2 (19:26→21:33)
[2021-08-09] MEDS ORDERED: SODIUM CHLORIDE 0.9% 500 ML 500 ML IV ONE (19:26)
--- NOTE | 2021-08-09 19:39 | ED ---
General Adult HPI - General Chief complaint: Back Pain/Injury Stated complaint: Back Pain Time Seen by Provider: 08/09/21 19:08 Source: patient, EMS, RN notes reviewed, old records reviewed Mode of arrival: EMS Limitations: no limitations - History of Present Illness Initial comments: Mr. Aguilar is a 66-year-old male well-known to this emergency department presents for evaluation of left flank pain after fall. Patient states he fell yesterday after consuming a large amount of alcohol. He has had pain at the site of injury for the past 24 hours. He believes he may have hit her nightstand. He admits to alcohol consumption today stating that he drank 1 pint of liquor. No central chest pain. No difficulty breathing. No bowel or bladder incontinence. There was no head or neck trauma. - Related Data Home Medications Medication Instructions Recorded Confirmed Folic Acid 1 mg PO DAILY 01/07/20 08/09/21 traZODone HCL 50 mg PO HS PRN 01/07/20 08/09/21 Ergocalciferol [Vitamin D2 (1250 1,250 mcg PO Q30D 10/30/20 08/09/21 Mcg = 86967 Iu)] Naproxen 500 mg PO BID PRN 10/30/20 08/09/21 Omeprazole 20 mg PO DAILY 03/02/21 08/09/21 Potassium Chloride ER [K-Dur 20] 20 meq PO BID 03/02/21 08/09/21 HYDROcodone/APAP 5-325MG [[place] 1 tab PO Q6H PRN 04/01/21 08/09/21 5-325] Thiamine [Vitamin B-1] 100 mg PO W/LUNCH 07/21/21 08/09/21 Previous Rx's Medication Instructions Recorded Ferrous Sulfate [Iron (65 MG 325 mg PO DAILY #30 tab 06/07/19 Elemental)] Magnesium Oxide [Mag-Ox] 400 mg PO BID #60 tab 04/03/21 Apixaban [Eliquis] 5 mg PO BID #60 tab 07/25/21 Atorvastatin [Lipitor] 40 mg PO DAILY 30 Days #30 tab 07/25/21 Cyclobenzaprine [Flexeril] 10 mg PO TID PRN #30 tab 07/25/21 Losartan [Cozaar] 150 mg PO DAILY 30 Days #90 tab 03/11/22 Metoprolol Succinate (ER) [Toprol 100 mg PO BID 30 Days #60 tab 07/25/21 XL] Sucralfate [Carafate] 1 gm PO AC-TID #90 tablet 07/25/21 Tamsulosin [Flomax] 0.4 mg PO DAILY #30 cap 07/25/21 hydrALAZINE HCL [Apresoline] 50 mg PO TID #90 tab 07/25/21 Allergies Allergy/AdvReac Type Severity Reaction Status Date / Time adhesive tape Allergy Rash/Hives Verified 08/09/21 21:38 latex Allergy Unknown Verified 08/09/21 21:38 egg AdvReac Nausea & Verified 08/09/21 21:38 Vomiting lisinopril AdvReac EYES Verified 08/09/21 21:38 BURN&ITCH/WEAKNESS tomato AdvReac Nausea & Verified 08/09/21 21:38 Vomiting & Diarrhea Review of Systems ROS Statement: Those systems with pertinent positive or pertinent negative responses have been documented in the HPI. ROS Other: All systems not noted in ROS Statement are negative. Past Medical History Past Medical History: Atrial Fibrillation, Chest Pain / Angina, COPD, CVA/TIA, Diabetes Mellitus, GERD/Reflux, GI Bleed, Hearing Disorder / Deafness, Hyperlipidemia, Hypertension, Liver Disease, Pneumonia, Prostate Disorder, Pulmonary Embolus (PE) Additional Past Medical History / Comment(s): Pt recently hospitalized at [facility] with pneumonia. Other hx: GI bleed/ esophageal varicies banded. Other hx: Alcoholism, alcohol withdrawal DTs and possibly a seizure in 2018 r/t withdrawal, chronic alcoholic cirrhosis with portal hypertension and previous history of upper and lower GI bleeding, esophageal varices, previous history of childhood seizure which he outgrew not taking any antiepileptic medication, pulmonary embolism x 2 R lung, TIA, diverticulosis, chronic lower bilateral extremity ankle edema if he walks a lot, previous history of septicemia, cervical disc disease, chronic neck pain, chronic back pain with r sided sciatica, degenerative arthritis involving the lower back, scoliosis, tinnitus, vitamin D deficiency, iron anemia, chronic thrombocytopenia, denies MRSA, C-DIFF 4-2018 History of Any Multi-Drug Resistant Organisms: MRSA Date of last positivie culture/infection: 03/17/18 MDRO Source:: stomach Past Surgical History: Appendectomy, Cholecystectomy Additional Past Surgical History / Comment(s): EGDs/esophageal varicies bandings, colonoscopies. Past Anesthesia/Blood Transfusion Reactions: No Reported Reaction Additional Past Anesthesia/Blood Transfusion Reaction / Comment(s): after appendix removed sob Past Psychological History: Anxiety, Depression Smoking Status: Never smoker Past Alcohol Use History: Occasional Past Drug Use History: None Reported - Past Family History Mother Family Medical History: COPD, CVA/TIA, Dementia Additional Family Medical History / Comment(s): from a stroke Father Family Medical History: Pneumonia Additional Family Medical History / Comment(s): Father of pneumonia when he was close to 80 yrs old. General Exam Limitations: no limitations General appearance: alert, appears intoxicated Head exam: Present: atraumatic Eye exam: Present: normal appearance, PERRL Neck exam: Present: normal inspection. Absent: tenderness, meningismus Cardiovascular Exam: Present: regular rate, tachycardia GI/Abdominal exam: Present: soft. Absent: distended, tenderness, guarding Extremities exam: Present: normal inspection, normal capillary refill Back exam: Present: CVA tenderness (L), other (Ecchymosis over the left flank and left lower ribs.) Neurological exam: Present: alert, oriented X3, CN II-XII intact. Absent: motor sensory deficit Psychiatric exam: Present: normal affect, normal mood Skin exam: Present: warm, dry Course Vital Signs 08/09/21 08/09/21 19:06 21:13 Temperature 98.5 F Pulse Rate 126 H 130 H Respiratory 17 18 Rate Blood Pressure 157/105 163/92 O2 Sat by Pulse 95 93 L Oximetry EKG Findings - EKG Comments: EKG Findings:: EKG: Sinus tachycardia rate of 121 KS interval 171, QRS duration 76, QTC [address] segment elevation. Medical Decision Making - Medical Decision Making 66-year-old male presenting for evaluation of flank pain after fall which occurred yesterday. There is some bruising on the lateral inferior chest wall. I x-rayed both the ribs as well as the lumbar spine. There is a L3 compression fracture without acute fracture otherwise. No displaced rib fracture. No pneumothorax. He has normal white blood cell count, normal hemoglobin, mildly elevated potassium which is hemolyzed creatinine of 1.5 likely secondary to de hydration from alcohol abuse. Alcohol level is 143. He has been noncompliant with his medication which does include metoprolol. His heart rate is elevated but I suspect this is from being off his beta madeline. He is given a dose in the emergency department. As well as IV hydration and pain control. pt should follow-up with his primary care physician. He should abstain from alcohol and take his medications as prescribed. - Lab Data Result diagrams: 08/09/21 19:43 08/09/21 19:43 Lab Results 08/09/21 08/09/21 08/09/21 Range/Units 19:43 19:43 19:43 WBC 4.7 (3.8-10.6) k/uL RBC 4.20 L (4.30-5.90) m/uL Hgb 14.2 (13.0-17.5) gm/dL Hct 42.0 (39.0-53.0) % MCV 100.0 (80.0-100.0) fL MCH 33.7 (25.0-35.0) pg MCHC 33.8 (31.0-37.0) g/dL RDW 14.9 (11.5-15.5) % Plt Count 126 L (150-450) k/uL MPV 8.1 Neutrophils % 60 % Lymphocytes % 31 % Monocytes % 5 % Eosinophils % 2 % Basophils % 1 % Neutrophils # 2.8 (1.3-7.7) k/uL Lymphocytes # 1.5 (1.0-4.8) k/uL Monocytes # 0.2 (0-1.0) k/uL Eosinophils # 0.1 (0-0.7) k/uL Basophils # 0.0 (0-0.2) k/uL Macrocytosis Slight APTT 23.1 (22.0-30.0) sec Sodium 141 (137-145) mmol/L Potassium 5.9 H (3.5-5.1) mmol/L Chloride 110 H (98-107) mmol/L Carbon Dioxide 20 L (22-30) mmol/L Anion Gap 11 mmol/L BUN 14 (9-20) mg/dL Creatinine 1.50 H (0.66-1.25) mg/dL Est GFR (CKD-EPI)AfAm 56 (>60 ml/min/1.73 sqM) Est GFR (CKD-EPI)NonAf 48 (>60 ml/min/1.73 sqM) Glucose 132 H (74-99) mg/dL Calcium 8.5 (8.4-10.2) mg/dL Phosphorus 3.4 (2.5-4.5) mg/dL Magnesium 1.6 (1.6-2.3) mg/dL Total Bilirubin 1.4 H (0.2-1.3) mg/dL AST 80 H (17-59) U/L ALT 37 (4-49) U/L Alkaline Phosphatase 139 H (38-126) U/L Total Protein 8.1 (6.3-8.2) g/dL Albumin 3.9 (3.5-5.0) g/dL Serum Alcohol 143 mg/dL Disposition Clinical Impression: Alcohol intoxication, ETOH abuse, Contusion, chest wall, Compression fracture of L3 vertebra Disposition: HOME SELF-CARE Condition: Fair Instructions (If sedation given, give patient instructions): Rib Contusion (ED), Vertebral Compression Fracture (ED) Is patient prescribed a controlled substance at d/c from ED?: No Referrals: Doug Beck MD [Primary Care Provider] - 1-2 days Time of Disposition: 22:05
[2021-08-09 20:00] LABS: Basophils % (A) 1 %; Eosinophils # (A) 0.1 k/uL (0-0.7); Eosinophils % (A) 2 %; HGB 14.2 gm/dL (13.0-17.5); Lymphocytes # (A) 1.5 k/uL (1.0-4.8); Lymphocytes % (A) 31 %; MCH 33.7 pg (25.0-35.0); MCHC 33.8 g/dL (31.0-37.0); Macrocytosis Slight; Mean Platelet Volume 8.1; Monocytes # (A) 0.2 k/uL (0-1.0); Monocytes % (A) 5 %; Neutrophils # (A) 2.8 k/uL (1.3-7.7); Neutrophils % (A) 60 %; Platelet Count 126 k/uL (150-450); RDW 14.9 % (11.5-15.5); WBC 4.7 k/uL (3.8-10.6)
[2021-08-09 20:10] LABS: Albumin 3.9 g/dL (3.5-5.0); Calcium 8.5 mg/dL (8.4-10.2); Magnesium 1.6 mg/dL (1.6-2.3); Phosphorus 3.4 mg/dL (2.5-4.5); Total Bilirubin 1.4 mg/dL (0.2-1.3); Total Protein 8.1 g/dL (6.3-8.2)
[2021-08-09 20:25] LABS: Potassium 5.9 mmol/L (3.5-5.1)
--- NOTE | 2021-08-09 20:55 | XR ---
EXAMINATION TYPE: XR ribs LT w pa chest xray DATE OF EXAM: 08/09/2021 COMPARISON: 12/28/2018 HISTORY: Rib pain TECHNIQUE: 5 views FINDINGS: There is no heart failure nor confluent pneumonic infiltrate. Thoracic aorta is atheromatou s. There is no pleural effusion. There is old healed left humeral neck fracture. There is slight coar sening of interstitial lung markings. No rib fracture seen. IMPRESSION: Minimal fibrotic changes on the left side. This probably old healed left rib fracture. No acute rib fracture seen.
--- NOTE | 2021-08-09 21:04 | XR ---
EXAMINATION TYPE: XR lumbosacral spine min 4V DATE OF EXAM: 08/09/2021 COMPARISON: 09/27/2018 HISTORY: Pain TECHNIQUE: 5 views FINDINGS: Lumbar radiograph fairly normal alignment. There is anterior wedging of L3 vertebra with 30 % loss of height. The posterior element are intact. There is degenerative hypertrophic spurring in th e lumbar spine. Sacroiliac joints are intact. IMPRESSION: L3 compression fracture shows some progression compared to old exam. No acute fracture se en.
[2021-08-09] MEDS ORDERED: SODIUM CHLORIDE 0.9% 1,000 ML IV ONE (21:33)
[2021-08-09] MEDS ORDERED: LORazepam 2 MG/ML INJ IV STA (21:37)
[2021-08-09] MEDS ORDERED: METOPROLOL SUCCINATE (ER) 100 MG TAB.ER.24H PO SCH (22:00)
[2021-08-09] MEDS ORDERED: METOPROLOL SUCCINATE (ER) 100 MG TAB.ER.24H PO ONE (22:00)
[2021-08-10 00:40] VITALS: BP 154/90; PULSE 102; RESP 20; TEMP 97.9
== END 2021-08-10 00:40 | disposition home or self-care (01) ==
LOC: EC 18:59
DX: S32.030A Wedge compression fracture of third lumbar vertebra, initial encounter for closed fracture (principal); S20.20XA Contusion of thorax, unspecified, initial encounter; F10.129 Alcohol abuse with intoxication, unspecified; F10.10 Alcohol abuse, uncomplicated; J44.9 Chronic obstructive pulmonary disease, unspecified; K21.9 Gastro-esophageal reflux disease without esophagitis; E11.9 Type 2 diabetes mellitus without complications; Z91.048 Other nonmedicinal substance allergy status; Z79.1 Long term (current) use of non-steroidal anti-inflammatories (NSAID); Z86.73 Personal history of transient ischemic attack (TIA), and cerebral infarction without residual deficits; Z91.040 Latex allergy status; Z91.012 Allergy to eggs; Z88.8 Allergy status to other drugs, medicaments and biological substances; Z91.018 Allergy to other foods; W22.8XXA Striking against or struck by other objects, initial encounter
CPT/HCPCS: 36415; 93005; 80053; 83735; 84100; 85025; 85730; 71101; 72110; 99284; 96374; 96375; 96376; 96361; G0480; J2060; J2270; 80320

== ENCOUNTER 2021-09-23 09:29 | Inpatient (IN) | payer MEDICARE, OTHER ==
[2021-09-23] MEDS ORDERED: SODIUM CHLORIDE 0.9% 2,000 ML IV STA (10:04)
[2021-09-23 10:36] LABS: Basophils % (A) 1 %; Eosinophils # (A) 0.1 k/uL (0-0.7); Eosinophils % (A) 1 %; HCT 33.5 % (39.0-53.0); Lymphocytes # (A) 1.2 k/uL (1.0-4.8); Lymphocytes % (A) 30 %; MCH 32.6 pg (25.0-35.0); MCHC 31.8 g/dL (31.0-37.0); MCV 102.6 fL (80.0-100.0); Macrocytosis Slight; Mean Platelet Volume 7.8; Monocytes # (A) 0.2 k/uL (0-1.0); Monocytes % (A) 5 %; Neutrophils # (A) 2.5 k/uL (1.3-7.7); Neutrophils % (A) 61 %; Platelet Count 137 k/uL (150-450); RBC 3.26 m/uL (4.30-5.90); RDW 15.2 % (11.5-15.5); WBC 4.1 k/uL (3.8-10.6)
[2021-09-23 10:43] LABS: HGB 10.7 gm/dL (13.0-17.5)
[2021-09-23 11:01] LABS: ALT 44 U/L (4-49); AST 80 U/L (17-59); African American GFR (CKD) >90 (>60 ml/min/1.73 sqM); Albumin 3.4 g/dL (3.5-5.0); Alkaline Phosphatase 128 U/L (38-126); Amylase 93 U/L (30-110); Anion Gap 10 mmol/L; Blood Urea Nitrogen 10 mg/dL (9-20); Calcium 8.2 mg/dL (8.4-10.2); Carbon Dioxide 24 mmol/L (22-30); Chloride 109 mmol/L (98-107); Glucose 130 mg/dL (74-99); Lipase 137 U/L (23-300); Non-African American GFR(CKD) >90 (>60 ml/min/1.73 sqM); Potassium 4.1 mmol/L (3.5-5.1); Sodium 143 mmol/L (137-145); Total Bilirubin 0.7 mg/dL (0.2-1.3); Total Protein 6.9 g/dL (6.3-8.2)
[2021-09-23 11:16] LABS: Appearance,Urine Clear (Clear); Bilirubin,Urine Negative (Negative); Blood,Urine Negative (Negative); Color,Urine Yellow; Glucose,Urine (UA) Negative (Negative); Ketones,Urine Negative (Negative); Leukocyte Esterase,Urine Negative (Negative); Nitrite,Urine Negative (Negative); PH, Urine 6.5 (5.0-8.0); Protein,Urine Negative (Negative); Specific Gravity,Urine 1.013 (1.001-1.035); Urobilinogen,Urine <2.0 mg/dL (<2.0)
--- NOTE | 2021-09-23 11:56 | CT ---
EXAMINATION TYPE: CT abdomen pelvis w con DATE OF EXAM: 09/23/2021 COMPARISON: CT dated 07/21/2021 HISTORY: Lower abdominal and pelvic pain. CT DLP: 1425.7 mGycm Automated exposure control for dose reduction was used. TECHNIQUE: Helical acquisition of images was performed from the lung bases through the pelvis. CONTRAST: Performed without Oral Contrast and with IV Contrast, patient injected with 100ml mL of Isovue 300. FINDINGS: LUNG BASES: Bilateral basal peripheral pulmonary reticulations and mild fibrotic changes more on the left side. LIVER/GB: Apparent cirrhotic hepatic changes, please correlate liver function tests/hepatic viral ser ology. Millimetric hypodensity at the inferior aspect of the right hepatic lobe, appreciated previous ly. No other definite hepatic focal lesion. Previous cholecystectomy. PANCREAS: No significant abnormality is seen. SPLEEN: Bulky spleen with tiny calcification within. ADRENALS: No significant abnormality is seen. KIDNEYS: No significant abnormality is seen. FREE AIR: No free air is visualized. RETROPERITONEAL ADENOPATHY: None visualized REPRODUCTIVE ORGANS: No significant abnormality is seen URINARY BLADDER: No significant abnormality is seen. PELVIC ADENOPATHY: No pathologically enlarged pelvic lymph nodes. OSSEOUS STRUCTURES: Persistent L2 upper endplate depression with focal bony spinal canal stenosis at that level, appreciated on the previous CT scan. BOWEL: Unremarkable nondistended stomach, duodenum and small bowel. Scattered uncomplicated colonic diverticulosis. Mild fat stranding surrounding the colon mainly the ascending colon, underlying mild colitis cannot be excluded, please correlate clinically. OTHER: Scattered arterial atherosclerotic calcification with infrarenal abdominal aortic ectasia. No sizable ascites. Small right fat-containing inguinal hernia. Portosystemic collateral vascular channe ls are seen along the gastroesophageal junction and to a lesser extent throughout the peritoneum with recanalization of the popliteal vein. IMPRESSION: CIRRHOTIC HEPATIC CHANGES, BULKY SPLEEN AND SIGNS OF PORTAL HYPERTENSION DESCRIBED ABOVE. NO SIZAB LE ASCITES. NO DEFINITE ACUTE ABNORMALITY SEEN IN THE ABDOMEN OR THE PELVIS OTHERWISE. INCIDENTAL FIN DINGS DESCRIBED ABOVE.
[2021-09-23] MEDS ORDERED: DILTIAZEM DRIP BOLUS FROM BAG 1 MG SOLN IV ONE (12:20)
[2021-09-23] MEDS ORDERED: NALOXONE 0.4 MG/ML 1 ML VIAL IV PRN (12:20)
[2021-09-23] MEDS ORDERED: ACETAMINOPHEN TAB 325 MG TAB PO PRN (12:20)
--- NOTE | 2021-09-23 12:20 | ED ---
General Adult HPI - General Chief complaint: Urogenital Stated complaint: Groin Pain Time Seen by Provider: 09/23/21 09:36 Source: patient, EMS, RN notes reviewed Mode of arrival: EMS Limitations: no limitations - History of Present Illness Initial comments: This a 66-year-old male presents emergency from chief complaint of groin pain. Patient states she's had left groin, abdominal pain that radiates up to his mid abdomen. Patient states that this pain is been on and off he has no current pain at this time patient brought in by EMS found to be tachycardic. Patient states she does like his heart racing no chest pain. He denies again any alcohol last few weeks so he has a long history of alcohol abuse. Patient states he does not feel he is withdrawing patient denies any diarrhea constipation no dysuria no hematuria no trauma. - Related Data Home Medications Medication Instructions Recorded Confirmed Folic Acid 1 mg PO DAILY 01/07/20 09/23/21 traZODone HCL 50 mg PO HS PRN 01/07/20 09/23/21 Ergocalciferol [Vitamin D2 (1250 1,250 mcg PO Q30D 10/30/20 09/23/21 Mcg = 81233 Iu)] Naproxen 500 mg PO BID PRN 10/30/20 09/23/21 Omeprazole 20 mg PO DAILY 03/02/21 09/23/21 Thiamine [Vitamin B-1] 100 mg PO W/LUNCH 07/21/21 09/23/21 Losartan [Cozaar] 50 mg PO TID 09/23/21 09/23/21 Previous Rx's Medication Instructions Recorded Ferrous Sulfate [Iron (65 MG 325 mg PO DAILY #30 tab 06/07/19 Elemental)] Magnesium Oxide [Mag-Ox] 400 mg PO BID #60 tab 04/03/21 Atorvastatin [Lipitor] 40 mg PO DAILY 30 Days #30 tab 07/25/21 Cyclobenzaprine [Flexeril] 10 mg PO TID PRN #30 tab 07/25/21 Sucralfate [Carafate] 1 gm PO AC-TID #90 tablet 07/25/21 Allergies Allergy/AdvReac Type Severity Reaction Status Date / Time adhesive tape Allergy Rash/Hives Verified 09/23/21 10:35 latex Allergy Unknown Verified 09/23/21 10:35 egg AdvReac Nausea & Verified 09/23/21 10:35 Vomiting lisinopril AdvReac EYES Verified 09/23/21 10:35 BURN&ITCH/WEAKNESS tomato AdvReac Nausea & Verified 09/23/21 10:35 Vomiting & Diarrhea Review of Systems ROS Statement: Those systems with pertinent positive or pertinent negative responses have been documented in the HPI. ROS Other: All systems not noted in ROS Statement are negative. Past Medical History Past Medical History: Atrial Fibrillation, Chest Pain / Angina, COPD, CVA/TIA, Diabetes Mellitus, GERD/Reflux, GI Bleed, Hearing Disorder / Deafness, Hyperlipidemia, Hypertension, Liver Disease, Pneumonia, Prostate Disorder, Pulmonary Embolus (PE) Additional Past Medical History / Comment(s): Pt recently hospitalized at [facility] with pneumonia. Other hx: GI bleed/ esophageal varicies banded. Other hx: Alcoholism, alcohol withdrawal DTs and possibly a seizure in 2018 r/t withdrawal, chronic alcoholic cirrhosis with portal hypertension and previous history of upper and lower GI bleeding, esophageal varices, previous history of childhood seizure which he outgrew not taking any antiepileptic medication, pulmonary embolism x 2 R lung, TIA, diverticulosis, chronic lower bilateral extremity ankle edema if he walks a lot, previous history of septicemia, cervical disc disease, chronic neck pain, chronic back pain with r sided sciatica, degenerative arthritis involving the lower back, scoliosis, tinnitus, vitamin D deficiency, iron anemia, chronic thrombocytopenia, denies MRSA, C-DIFF -2018 History of Any Multi-Drug Resistant Organisms: MRSA Date of last positivie culture/infection: 03/17/18 MDRO Source:: stomach Past Surgical History: Appendectomy, Cholecystectomy Additional Past Surgical History / Comment(s): EGDs/esophageal varicies bandings, colonoscopies. Past Anesthesia/Blood Transfusion Reactions: No Reported Reaction Additional Past Anesthesia/Blood Transfusion Reaction / Comment(s): after appendix removed sob Past Psychological History: Anxiety, Depression Smoking Status: Never smoker Past Alcohol Use History: Occasional Past Drug Use History: None Reported - Past Family History Mother Family Medical History: COPD, CVA/TIA, Dementia Additional Family Medical History / Comment(s): from a stroke Father Family Medical History: Pneumonia Additional Family Medical History / Comment(s): Father of pneumonia when he was close to 80 yrs old. General Exam Limitations: no limitations General appearance: alert, in no apparent distress Head exam: Present: atraumatic, normocephalic, normal inspection Eye exam: Present: normal appearance, PERRL, EOMI. Absent: scleral icterus, conjunctival injection, periorbital swelling ENT exam: Present: normal exam, mucous membranes moist Respiratory exam: Present: normal lung sounds bilaterally. Absent: respiratory distress, wheezes, rales, rhonchi, stridor Cardiovascular Exam: Present: normal rhythm, tachycardia, normal heart sounds. Absent: systolic murmur, diastolic murmur, rubs, gallop, clicks Course Vital Signs 09/23/21 09/23/21 09/23/21 09:32 09:56 10:00 Temperature 98.5 F Pulse Rate 131 H 133 H 131 H Respiratory 20 26 H 22 Rate Blood Pressure 161/96 163/103 163/103 O2 Sat by Pulse 97 93 L 95 Oximetry 09/23/21 10:30 Temperature Pulse Rate 128 H Respiratory 27 H Rate Blood Pressure 162/108 O2 Sat by Pulse 95 Oximetry Medical Decision Making - Medical Decision Making CT of abdomen and pelvis are related any acute findings. Patient does have persistent tachycardia, denies any alcohol withdrawal symptoms at this time. Patient's lab work revealed mild lactic acidosis may be related to dehydration. Patient has no current sinus infection. Patient's case discussed with Dr. Beck patient be admitted. - Lab Data Result diagrams: 09/23/21 10:09 09/23/21 10:09 Lab Results 09/23/21 09/23/21 09/23/21 Range/Units 10:09 10:09 10:09 WBC 4.1 (3.8-10.6) k/uL RBC 3.26 L (4.30-5.90) m/uL Hgb 10.7 L D (13.0-17.5) gm/dL Hct 33.5 L (39.0-53.0) % MCV 102.6 H (80.0-100.0) fL MCH 32.6 (25.0-35.0) pg MCHC 31.8 (31.0-37.0) g/dL RDW 15.2 (11.5-15.5) % Plt Count 137 L (150-450) k/uL MPV 7.8 Neutrophils % 61 % Lymphocytes % 30 % Monocytes % 5 % Eosinophils % 1 % Basophils % 1 % Neutrophils # 2.5 (1.3-7.7) k/uL Lymphocytes # 1.2 (1.0-4.8) k/uL Monocytes # 0.2 (0-1.0) k/uL Eosinophils # 0.1 (0-0.7) k/uL Basophils # 0.0 (0-0.2) k/uL Macrocytosis Slight Sodium 143 (137-145) mmol/L Potassium 4.1 (3.5-5.1) mmol/L Chloride 109 H (98-107) mmol/L Carbon Dioxide 24 (22-30) mmol/L Anion Gap 10 mmol/L BUN 10 (9-20) mg/dL Creatinine 0.86 (0.66-1.25) mg/dL Est GFR (CKD-EPI)AfAm >90 (>60 ml/min/1.73 sqM) Est GFR (CKD-EPI)NonAf >90 (>60 ml/min/1.73 sqM) Glucose 130 H (74-99) mg/dL Plasma Lactic Acid Hitesh (0.7-2.0) mmol/L Calcium 8.2 L (8.4-10.2) mg/dL Total Bilirubin 0.7 (0.2-1.3) mg/dL AST 80 H (17-59) U/L ALT 44 (4-49) U/L Alkaline Phosphatase 128 H (38-126) U/L Troponin I (0.000-0.034) ng/mL Total Protein 6.9 (6.3-8.2) g/dL Albumin 3.4 L (3.5-5.0) g/dL Amylase 93 (30-110) U/L Lipase 137 (23-300) U/L Urine Color Yellow Urine Appearance Clear (Clear) Urine pH 6.5 (5.0-8.0) Ur Specific [place] 1.013 (1.001-1.035) Urine Protein Negative (Negative) Urine Glucose (UA) Negative (Negative) Urine Ketones Negative (Negative) Urine Blood Negative (Negative) Urine Nitrite Negative (Negative) Urine Bilirubin Negative (Negative) Urine Urobilinogen <2.0 (<2.0) mg/dL Ur Leukocyte Esterase Negative (Negative) Coronavirus (PCR) (Not Detectd) Influenza Type A RNA (Not Detectd) Influenza Type B (PCR) (Not Detectd) 09/23/21 09/23/21 09/23/21 Range/Units 10:09 10:09 10:09 WBC (3.8-10.6) k/uL RBC (4.30-5.90) m/uL Hgb (13.0-17.5) gm/dL Hct (39.0-53.0) % MCV (80.0-100.0) fL MCH (25.0-35.0) pg MCHC (31.0-37.0) g/dL RDW (11.5-15.5) % Plt Count (150-450) k/uL MPV Neutrophils % % Lymphocytes % % Monocytes % % Eosinophils % % Basophils % % Neutrophils # (1.3-7.7) k/uL Lymphocytes # (1.0-4.8) k/uL Monocytes # (0-1.0) k/uL Eosinophils # (0-0.7) k/uL Basophils # (0-0.2) k/uL Macrocytosis Sodium (137-145) mmol/L Potassium (3.5-5.1) mmol/L Chloride (98-107) mmol/L Carbon Dioxide (22-30) mmol/L Anion Gap mmol/L BUN (9-20) mg/dL Creatinine (0.66-1.25) mg/dL Est GFR (CKD-EPI)AfAm (>60 ml/min/1.73 sqM) Est GFR (CKD-EPI)NonAf (>60 ml/min/1.73 sqM) Glucose (74-99) mg/dL Plasma Lactic Acid Hitesh 3.8 H* (0.7-2.0) mmol/L Calcium (8.4-10.2) mg/dL Total Bilirubin (0.2-1.3) mg/dL AST (17-59) U/L ALT (4-49) U/L Alkaline Phosphatase (38-126) U/L Troponin I <0.012 (0.000-0.034) ng/mL Total Protein (6.3-8.2) g/dL Albumin (3.5-5.0) g/dL Amylase (30-110) U/L Lipase (23-300) U/L Urine Color Urine Appearance (Clear) Urine pH (5.0-8.0) Ur Specific [place] (1.001-1.035) Urine Protein (Negative) Urine Glucose (UA) (Negative) Urine Ketones (Negative) Urine Blood (Negative) Urine Nitrite (Negative) Urine Bilirubin (Negative) Urine Urobilinogen (<2.0) mg/dL Ur Leukocyte Esterase (Negative) Coronavirus (PCR) (Not Detectd) Influenza Type A RNA Not Detected (Not Detectd) Influenza Type B (PCR) Not Detected (Not Detectd) 09/23/21 Range/Units 10:09 WBC (3.8-10.6) k/uL RBC (4.30-5.90) m/uL Hgb (13.0-17.5) gm/dL Hct (39.0-53.0) % MCV (80.0-100.0) fL MCH (25.0-35.0) pg MCHC (31.0-37.0) g/dL RDW (11.5-15.5) % Plt Count (150-450) k/uL MPV Neutrophils % % Lymphocytes % % Monocytes % % Eosinophils % % Basophils % % Neutrophils # (1.3-7.7) k/uL Lymphocytes # (1.0-4.8) k/uL Monocytes # (0-1.0) k/uL Eosinophils # (0-0.7) k/uL Basophils # (0-0.2) k/uL Macrocytosis Sodium (137-145) mmol/L Potassium (3.5-5.1) mmol/L Chloride (98-107) mmol/L Carbon Dioxide (22-30) mmol/L Anion Gap mmol/L BUN (9-20) mg/dL Creatinine (0.66-1.25) mg/dL Est GFR (CKD-EPI)AfAm (>60 ml/min/1.73 sqM) Est GFR (CKD-EPI)NonAf (>60 ml/min/1.73 sqM) Glucose (74-99) mg/dL Plasma Lactic Acid Hitesh (0.7-2.0) mmol/L Calcium (8.4-10.2) mg/dL Total Bilirubin (0.2-1.3) mg/dL AST (17-59) U/L ALT (4-49) U/L Alkaline Phosphatase (38-126) U/L Troponin I (0.000-0.034) ng/mL Total Protein (6.3-8.2) g/dL Albumin (3.5-5.0) g/dL Amylase (30-110) U/L Lipase (23-300) U/L Urine Color Urine Appearance (Clear) Urine pH (5.0-8.0) Ur Specific [place] (1.001-1.035) Urine Protein (Negative) Urine Glucose (UA) (Negative) Urine Ketones (Negative) Urine Blood (Negative) Urine Nitrite (Negative) Urine Bilirubin (Negative) Urine Urobilinogen (<2.0) mg/dL Ur Leukocyte Esterase (Negative) Coronavirus (PCR) Not Detected (Not Detectd) Influenza Type A RNA (Not Detectd) Influenza Type B (PCR) (Not Detectd) Disposition Clinical Impression: Tachycardia, Dehydration, Abdominal pain Disposition: ADMITTED IP TO THIS HOSP Condition: Fair Referrals: Doug Beck MD [Primary Care Provider] - 1-2 days Time of Disposition: 12:19
[2021-09-23] MEDS: SODIUM CHLORIDE 0.9% 1,000 ML IV SCH (12:34)
[2021-09-23] MEDS: DILTIAZEM 125 MG in SODIUM CHLORIDE 0.9% 100 ML IV SCH ×2 (12:35→21:41)
--- NOTE | 2021-09-23 13:53 | ED ---
Medical Decision Making - Lab Data Result diagrams: 09/23/21 10:09 09/23/21 10:09 Lab Results 09/23/21 09/23/21 09/23/21 Range/Units 10: 10: 10:09 WBC 4.1 (3.8-10.6) k/uL RBC 3.26 L (4.30-5.90) m/uL Hgb 10.7 L D (13.0-17.5) gm/dL Hct 33.5 L (39.0-53.0) % MCV 102.6 H (80.0-100.0) fL MCH 32.6 (25.0-35.0) pg MCHC 31.8 (31.0-37.0) g/dL RDW 15.2 (11.5-15.5) % Plt Count 137 L (150-450) k/uL MPV 7.8 Neutrophils % 61 % Lymphocytes % 30 % Monocytes % 5 % Eosinophils % 1 % Basophils % 1 % Neutrophils # 2.5 (1.3-7.7) k/uL Lymphocytes # 1.2 (1.0-4.8) k/uL Monocytes # 0.2 (0-1.0) k/uL Eosinophils # 0.1 (0-0.7) k/uL Basophils # 0.0 (0-0.2) k/uL Macrocytosis Slight Sodium 143 (137-145) mmol/L Potassium 4.1 (3.5-5.1) mmol/L Chloride 109 H (98-107) mmol/L Carbon Dioxide 24 (22-30) mmol/L Anion Gap 10 mmol/L BUN 10 (9-20) mg/dL Creatinine 0.86 (0.66-1.25) mg/dL Est GFR (CKD-EPI)AfAm >90 (>60 ml/min/1.73 sqM) Est GFR (CKD-EPI)NonAf >90 (>60 ml/min/1.73 sqM) Glucose 130 H (74-99) mg/dL Lactic Ac Sepsis Rflx Plasma Lactic Acid Hitesh (0.7-2.0) mmol/L Calcium 8.2 L (8.4-10.2) mg/dL Total Bilirubin 0.7 (0.2-1.3) mg/dL AST 80 H (17-59) U/L ALT 44 (4-49) U/L Alkaline Phosphatase 128 H (38-126) U/L Troponin I (0.000-0.034) ng/mL Total Protein 6.9 (6.3-8.2) g/dL Albumin 3.4 L (3.5-5.0) g/dL Amylase 93 (30-110) U/L Lipase 137 (23-300) U/L Urine Color Yellow Urine Appearance Clear (Clear) Urine pH 6.5 (5.0-8.0) Ur Specific [place] 1.013 (1.001-1.035) Urine Protein Negative (Negative) Urine Glucose (UA) Negative (Negative) Urine Ketones Negative (Negative) Urine Blood Negative (Negative) Urine Nitrite Negative (Negative) Urine Bilirubin Negative (Negative) Urine Urobilinogen <2.0 (<2.0) mg/dL Ur Leukocyte Esterase Negative (Negative) Coronavirus (PCR) (Not Detectd) Influenza Type A RNA (Not Detectd) Influenza Type B (PCR) (Not Detectd) 09/23/21 09/23/21 09/23/21 Range/Units 10:09 10:09 10:09 WBC (3.8-10.6) k/uL RBC (4.30-5.90) m/uL Hgb (13.0-17.5) gm/dL Hct (39.0-53.0) % MCV (80.0-100.0) fL MCH (25.0-35.0) pg MCHC (31.0-37.0) g/dL RDW (11.5-15.5) % Plt Count (150-450) k/uL MPV Neutrophils % % Lymphocytes % % Monocytes % % Eosinophils % % Basophils % % Neutrophils # (1.3-7.7) k/uL Lymphocytes # (1.0-4.8) k/uL Monocytes # (0-1.0) k/uL Eosinophils # (0-0.7) k/uL Basophils # (0-0.2) k/uL Macrocytosis Sodium (137-145) mmol/L Potassium (3.5-5.1) mmol/L Chloride (98-107) mmol/L Carbon Dioxide (22-30) mmol/L Anion Gap mmol/L BUN (9-20) mg/dL Creatinine (0.66-1.25) mg/dL Est GFR (CKD-EPI)AfAm (>60 ml/min/1.73 sqM) Est GFR (CKD-EPI)NonAf (>60 ml/min/1.73 sqM) Glucose (74-99) mg/dL Lactic Ac Sepsis Rflx Plasma Lactic Acid Hitesh 3.8 H* (0.7-2.0) mmol/L Calcium (8.4-10.2) mg/dL Total Bilirubin (0.2-1.3) mg/dL AST (17-59) U/L ALT (4-49) U/L Alkaline Phosphatase (38-126) U/L Troponin I <0.012 (0.000-0.034) ng/mL Total Protein (6.3-8.2) g/dL Albumin (3.5-5.0) g/dL Amylase (30-110) U/L Lipase (23-300) U/L Urine Color Urine Appearance (Clear) Urine pH (5.0-8.0) Ur Specific [place] (1.001-1.035) Urine Protein (Negative) Urine Glucose (UA) (Negative) Urine Ketones (Negative) Urine Blood (Negative) Urine Nitrite (Negative) Urine Bilirubin (Negative) Urine Urobilinogen (<2.0) mg/dL Ur Leukocyte Esterase (Negative) Coronavirus (PCR) (Not Detectd) Influenza Type A RNA Not Detected (Not Detectd) Influenza Type B (PCR) Not Detected (Not Detectd) 09/23/21 09/23/21 Range/Units 10:09 11:04 WBC (3.8-10.6) k/uL RBC (4.30-5.90) m/uL Hgb (13.0-17.5) gm/dL Hct (39.0-53.0) % MCV (80.0-100.0) fL MCH (25.0-35.0) pg MCHC (31.0-37.0) g/dL RDW (11.5-15.5) % Plt Count (150-450) k/uL MPV Neutrophils % % Lymphocytes % % Monocytes % % Eosinophils % % Basophils % % Neutrophils # (1.3-7.7) k/uL Lymphocytes # (1.0-4.8) k/uL Monocytes # (0-1.0) k/uL Eosinophils # (0-0.7) k/uL Basophils # (0-0.2) k/uL Macrocytosis Sodium (137-145) mmol/L Potassium (3.5-5.1) mmol/L Chloride (98-107) mmol/L Carbon Dioxide (22-30) mmol/L Anion Gap mmol/L BUN (9-20) mg/dL Creatinine (0.66-1.25) mg/dL Est GFR (CKD-EPI)AfAm (>60 ml/min/1.73 sqM) Est GFR (CKD-EPI)NonAf (>60 ml/min/1.73 sqM) Glucose (74-99) mg/dL Lactic Ac Sepsis Rflx Y Plasma Lactic Acid Hitesh (0.7-2.0) mmol/L Calcium (8.4-10.2) mg/dL Total Bilirubin (0.2-1.3) mg/dL AST (17-59) U/L ALT (4-49) U/L Alkaline Phosphatase (38-126) U/L Troponin I (0.000-0.034) ng/mL Total Protein (6.3-8.2) g/dL Albumin (3.5-5.0) g/dL Amylase (30-110) U/L Lipase (23-300) U/L Urine Color Urine Appearance (Clear) Urine pH (5.0-8.0) Ur Specific [place] (1.001-1.035) Urine Protein (Negative) Urine Glucose (UA) (Negative) Urine Ketones (Negative) Urine Blood (Negative) Urine Nitrite (Negative) Urine Bilirubin (Negative) Urine Urobilinogen (<2.0) mg/dL Ur Leukocyte Esterase (Negative) Coronavirus (PCR) Not Detected (Not Detectd) Influenza Type A RNA (Not Detectd) Influenza Type B (PCR) (Not Detectd) Critical Care Time Critical Care Time: Yes Total Critical Care Time: 35 Critical Care Time: Patient had persistent tachycardia in the 130s to 140s. Patient was given 2 L of fluids and no acute changes. Workup includes labs, imaging patient has lactic acidosis. Patient was started on Cardizem secondary to his persistent tachycardia. Case discussed with admitting physician. Disposition Clinical Impression: Tachycardia, Dehydration, Abdominal pain Disposition: ADMITTED IP TO THIS HOSP Condition: Fair
[2021-09-23] MEDS ORDERED: LORazepam 2 MG/ML INJ IV STA (14:25)
[2021-09-23 16:33] LABS: Glucose,Whole Blood 134 mg/dL (75-99)
[2021-09-23] MEDS: METOPROLOL SUCCINATE (ER) 100 MG TAB.ER.24H PO SCH (20:56)
[2021-09-23] MEDS: LOSARTAN 50 MG TAB PO SCH (20:56)
[2021-09-23 21:16] LABS: Glucose,Whole Blood 245 mg/dL (75-99)
[2021-09-24] MEDS: SODIUM CHLORIDE 0.9% 1,000 ML IV SCH ×2 (03:39→20:07)
[2021-09-24 06:10] LABS: Glucose,Whole Blood 124 mg/dL (75-99)
[2021-09-24] MEDS: METOPROLOL SUCCINATE (ER) 100 MG TAB.ER.24H PO SCH (08:15)
[2021-09-24] MEDS: LOSARTAN 50 MG TAB PO SCH ×3 (08:15→20:27)
[2021-09-24 11:38] LABS: Glucose,Whole Blood 155 mg/dL (75-99)
[2021-09-24 16:19] LABS: Glucose,Whole Blood 120 mg/dL (75-99)
[2021-09-24] MEDS ORDERED: APIXABAN 5 MG TAB PO SCH (18:04)
[2021-09-24] MEDS: APIXABAN 5 MG TAB PO SCH (18:54)
[2021-09-24 19:48] LABS: Glucose,Whole Blood 146 mg/dL (75-99)
[2021-09-25] MEDS: SODIUM CHLORIDE 0.9% 1,000 ML IV SCH ×2 (06:02→20:02)
[2021-09-25 06:24] LABS: Glucose,Whole Blood 116 mg/dL (75-99)
[2021-09-25] MEDS: LOSARTAN 50 MG TAB PO SCH ×3 (08:28→20:05)
[2021-09-25] MEDS: APIXABAN 5 MG TAB PO SCH ×2 (08:28→20:05)
[2021-09-25] MEDS: METOPROLOL SUCCINATE (ER) 100 MG TAB.ER.24H PO SCH (08:28)
[2021-09-25 11:39] LABS: Glucose,Whole Blood 152 mg/dL (75-99)
[2021-09-25] MEDS ORDERED: APIXABAN 5 MG TAB PO SCH (12:45)
[2021-09-25 16:28] LABS: Glucose,Whole Blood 135 mg/dL (75-99)
--- NOTE | 2021-09-25 17:33 | HP ---
HISTORY AND PHYSICAL DATE OF ADMISSION: 09/23/2021 CHIEF COMPLAINT: Tachycardia, dehydration, lactic acidosis and chest pain. HISTORY OF PRESENT ILLNESS: This is another admission for this 66-year-old white male who is in and out of the hospital frequently. He drinks heavily at home and does not take his medications. He shows up in the emergency room with hypertension, tachycardia and alcohol intoxication. He came in again this time with chest pain and tachycardia of around 130. Blood pressure was also elevated. REVIEW OF SYSTEMS: He has had no neurologic problems, cough, hemoptysis, diaphoresis, abdominal pain, nausea, vomiting, melena, hematochezia, jaundice, hepatitis, hematuria, frequency, urgency, etc. Past medical history, family history, and personal and social histories are unchanged from his recent admitting evaluations. He is ALLERGIC to [employer]HIBIT[employer]. He is on metoprolol. He is supposed to be on metoprolol succinate 100 mg once a day, Flexeril 10 mg t.i.d. p.r.n., losartan 50 mg three a day, atorvastatin 40 once a day, hydralazine 50 mg t.i.d., potassium 20 mEq twice a day, Carafate q.i.d., folic acid 1 mg a day, Eliquis 5 mg twice a day, vitamin D, Vicodin 5 p.r.n., iron and B1. The remainder of his history and past medical history is otherwise unremarkable. He is an alcoholic and he has never smoked. He does not take his medications and probably uses this to come back into the hospital, where he obviously feels very comfortable. PHYSICAL EXAMINATION: Blood pressure 140/100 with a pulse of 125, respirations were 36, and he is afebrile. In general he appeared to be well developed, well nourished, in no acute distress. Skin color was normal. Skin was warm and dry. Lymph nodes were not enlarged. Head, ears, eyes, nose, mouth and throat were otherwise normal. Chest was clear. Cardiac exam was normal except for tachycardia. Abdomen was soft, nontender. Extremities were normal. Neurologically he is intact. He is admitted to the hospital with diagnoses: 1. Chest pain. 2. Shortness of breath. 3. Tachycardia. 4. History of alcoholism. 5. Depression. PLAN: 1. Bedrest. 2. IV fluids. 3. Control blood pressure and pulse. The tachycardia is likely related to his alcoholism and dehydration. MMODL / IJN: [id number] /
--- NOTE | 2021-09-25 18:49 | PN ---
PROGRESS NOTE DATE OF SERVICE: 09/25/2021 CHIEF COMPLAINT: Tachycardia, chest pain, alcoholism. HISTORY OF PRESENT ILLNESS: This gentleman is complaining of chest pain. His pulse has come down. Blood pressure is under good control. He denies radiation of the pain, diaphoresis or shortness of breath. PHYSICAL EXAMINATION: Cardiac exam is unremarkable. His chest is clear. Abdomen is soft, nontender. IMPRESSION: 1. Tachycardia. 2. History of hypertension. 3. Alcoholism. 4. Chest pain. PLAN: 1. Repeat troponin and EKG. 2. Increase activity. 3. Probably home tomorrow. MMODL / IJN: [id number] /
--- NOTE | 2021-09-25 18:49 | PN ---
PROGRESS NOTE DATE OF SERVICE: 09/24/2021 CHIEF COMPLAINT: Tachycardia and chest pain. HISTORY OF PRESENT ILLNESS: This gentleman is doing well. He has been in sinus tachycardia. Now his rate is down into the 80s. He states that he has a "pressure in the chest." PHYSICAL EXAMINATION: Chest is clear. The cardiac exam is normal. Abdomen is soft, nontender. IMPRESSION: 1. History of hypertension. 2. History of tachycardia. 3. Alcoholism. 4. Patient noncompliant with medication. PLAN: Increase activity and continue to monitor his blood pressure and heart rate, but he will probably be able to go home in the next day or so. MMODL / IJN: [id number] /
[2021-09-25 20:20] LABS: Glucose,Whole Blood 131 mg/dL (75-99)
[2021-09-26 06:12] LABS: Glucose,Whole Blood 125 mg/dL (75-99)
[2021-09-26] MEDS: SODIUM CHLORIDE 0.9% 1,000 ML IV SCH (08:30)
[2021-09-26] MEDS: METOPROLOL SUCCINATE (ER) 100 MG TAB.ER.24H PO SCH (08:49)
[2021-09-26] MEDS: LOSARTAN 50 MG TAB PO SCH ×2 (08:50→17:24)
[2021-09-26] MEDS: APIXABAN 5 MG TAB PO SCH (08:50)
[2021-09-26 11:33] LABS: Glucose,Whole Blood 114 mg/dL (75-99)
[2021-09-26 11:40] VITALS: BP 128/84; PULSE 83; RESP 16; TEMP 99.1
[2021-09-26 16:30] LABS: Glucose,Whole Blood 102 mg/dL (75-99)
--- NOTE | 2021-09-29 21:47 | DS ---
DISCHARGE SUMMARY DATE OF DISCHARGE: 09/26/2021 CHIEF COMPLAINT: Weakness, chest pain, tachycardia and shortness of breath. HISTORY OF PRESENT ILLNESS AND PHYSICAL EXAMINATION: Details of this man's history and physical can be found in the initial workup. LABORATORY STUDIES: While he was in the hospital he had laboratory studies, details of which can be found in the laboratory section of his chart. COURSE IN THE HOSPITAL: After admission he was placed on bedrest, started on intravenous fluids, and his blood pressure was brought under control as well as his pulse. Cardiac studies were negative and it was felt that he could be discharged on September 26. He was admonished to take his medications as they are prescribed. FINAL DIAGNOSIS: 1. Chest pain, non-cardiac. 2. Uncontrolled hypertension. 3. Tachycardia. 4. Alcoholism. OPERATIONS: None. CONSULTATIONS: None. He is improved. ROCIO / MICHAEL: [id number] /
== END 2021-09-26 17:42 | disposition home health service (06) | DRG 641 ==
LOC: EC 09:29 → 3SCARD 12:00
PROVIDERS: ADMIT Family Medicine; ATTEND Family Medicine
DX: E86.0 Dehydration (principal); K76.6 Portal hypertension; E11.9 Type 2 diabetes mellitus without complications; E78.5 Hyperlipidemia, unspecified; E87.2 Acidosis; F10.229 Alcohol dependence with intoxication, unspecified; H91.90 Unspecified hearing loss, unspecified ear; Z20.822 Contact with and (suspected) exposure to COVID-19; R00.0 Tachycardia, unspecified; I10 Essential (primary) hypertension; M50.30 Other cervical disc degeneration, unspecified cervical region; K70.30 Alcoholic cirrhosis of liver without ascites; M41.9 Scoliosis, unspecified; D69.6 Thrombocytopenia, unspecified; E55.9 Vitamin D deficiency, unspecified; G89.29 Other chronic pain; M54.31 Sciatica, right side; I48.91 Unspecified atrial fibrillation; J44.9 Chronic obstructive pulmonary disease, unspecified; Z82.3 Family history of stroke; Z82.5 Family history of asthma and other chronic lower respiratory diseases; Z86.711 Personal history of pulmonary embolism; Z86.73 Personal history of transient ischemic attack (TIA), and cerebral infarction without residual deficits; Z91.14 Patient's other noncompliance with medication regimen; Z88.8 Allergy status to other drugs, medicaments and biological substances; Z91.012 Allergy to eggs; Z91.014 Allergy to mammalian meats; Z91.018 Allergy to other foods; Z91.048 Other nonmedicinal substance allergy status; Z90.49 Acquired absence of other specified parts of digestive tract; Z87.19 Personal history of other diseases of the digestive system
CPT/HCPCS: 36415; 74177; 80053; 81003; 82150; 83605; 83690; 84484; 85025; 87502; 87635; 93005; 96361; 96365; 96366; 96375; 99285

== ENCOUNTER 2021-10-12 09:34 | Observation (INO) | payer MEDICARE, OTHER ==
[2021-10-12] MEDS ORDERED: SODIUM CHLORIDE 0.9% 1,000 ML IV STA (09:48)
--- NOTE | 2021-10-12 09:53 | ED ---
General Adult HPI - General Chief complaint: Neuro Symptoms/Deficit Stated complaint: numbness Time Seen by Provider: 10/12/21 09:35 Source: patient, EMS, RN notes reviewed Mode of arrival: EMS Limitations: no limitations - History of Present Illness Initial comments: Patient is a pleasant 76-year-old male presenting to the emergency department with concerns for left-sided numbness. Onset of symptoms was when he woke this morning around 7:30. Last known well was yesterday when he went to bed. Patient states he has been having somewhat similar symptoms and mainly for the past few months, worse today. Patient states paresthesias left face and left arm. Patient states at times her difficulty moving the left arm. Patient does have history of atrial fibrillation however is not on anticoagulation. Patient does have history of alcohol problems. Patient denies confusion or speech problems. No leg problems. - Related Data Home Medications Medication Instructions Recorded Confirmed Folic Acid 1 mg PO DAILY 01/07/20 09/23/21 traZODone HCL 50 mg PO HS PRN 01/07/20 09/23/21 Ergocalciferol [Vitamin D2 (1250 1,250 mcg PO Q30D 10/30/20 09/23/21 Mcg = [id number] Iu)] Naproxen 500 mg PO BID PRN 10/30/20 09/23/21 Omeprazole 20 mg PO DAILY 03/02/21 09/23/21 Thiamine [Vitamin B-1] 100 mg PO W/LUNCH 07/21/21 09/23/21 Losartan [Cozaar] 50 mg PO TID 09/23/21 09/23/21 Apixaban [Eliquis] 5 mg PO BID 09/24/21 09/24/21 Previous Rx's Medication Instructions Recorded Ferrous Sulfate [Iron (65 MG 325 mg PO DAILY #30 tab 06/07/19 Elemental)] Magnesium Oxide [Mag-Ox] 400 mg PO BID #60 tab 04/03/21 Atorvastatin [Lipitor] 40 mg PO DAILY 30 Days #30 tab 07/25/21 Cyclobenzaprine [Flexeril] 10 mg PO TID PRN #30 tab 07/25/21 Sucralfate [Carafate] 1 gm PO AC-TID #90 tablet 07/25/21 Metoprolol Succinate (ER) [Toprol 100 mg PO DAILY #30 09/26/21 XL] Allergies Allergy/AdvReac Type Severity Reaction Status Date / Time adhesive tape Allergy Rash/Hives Verified 09/23/21 10:35 latex Allergy Unknown Verified 09/23/21 10:35 egg AdvReac Nausea & Verified 09/23/21 10:35 Vomiting lisinopril AdvReac EYES Verified 09/23/21 10:35 BURN&ITCH/WEAKNESS tomato AdvReac Nausea & Verified 09/23/21 10:35 Vomiting & Diarrhea Review of Systems ROS Statement: Those systems with pertinent positive or pertinent negative responses have been documented in the HPI. ROS Other: All systems not noted in ROS Statement are negative. Constitutional: Denies: fever Eyes: Denies: eye pain ENT: Denies: ear pain Respiratory: Denies: cough Cardiovascular: Denies: chest pain Endocrine: Denies: fatigue Gastrointestinal: Denies: abdominal pain Genitourinary: Denies: dysuria Musculoskeletal: Denies: back pain Skin: Denies: rash Neurological: Reports: as per HPI, weakness, paresthesias. Denies: headache, confusion Past Medical History Past Medical History: Atrial Fibrillation, Chest Pain / Angina, COPD, CVA/TIA, Diabetes Mellitus, GERD/Reflux, GI Bleed, Hearing Disorder / Deafness, Hyperlipidemia, Hypertension, Liver Disease, Pneumonia, Prostate Disorder, Pulmonary Embolus (PE) Additional Past Medical History / Comment(s): Pt recently hospitalized at [facility] with pneumonia. Other hx: GI bleed/ esophageal varicies banded. Other hx: Alcoholism, alcohol withdrawal DTs and possibly a seizure in 2018 r/t withdrawal, chronic alcoholic cirrhosis with portal hypertension and previous history of upper and lower GI bleeding, esophageal varices, previous history of childhood seizure which he outgrew not taking any antiepileptic medication, pulmonary embolism x 2 R lung, TIA, diverticulosis, chronic lower bilateral extremity ankle edema if he walks a lot, previous history of septicemia, cerv ical disc disease, chronic neck pain, chronic back pain with r sided sciatica, degenerative arthritis involving the lower back, scoliosis, tinnitus, vitamin D deficiency, iron anemia, chronic thrombocytopenia, denies MRSA, C-DIFF 4-2018 History of Any Multi-Drug Resistant Organisms: MRSA Date of last positivie culture/infection: 03/17/18 MDRO Source:: stomach Past Surgical History: Appendectomy, Cholecystectomy Additional Past Surgical History / Comment(s): EGDs/esophageal varicies bandings, colonoscopies. Past Anesthesia/Blood Transfusion Reactions: No Reported Reaction Additional Past Anesthesia/Blood Transfusion Reaction / Comment(s): after appendix removed sob Past Psychological History: Anxiety, Depression Smoking Status: Never smoker Past Alcohol Use History: Occasional Past Drug Use History: None Reported - Past Family History Mother Family Medical History: COPD, CVA/TIA, Dementia Additional Family Medical History / Comment(s): from a stroke Father Family Medical History: Pneumonia Additional Family Medical History / Comment(s): Father of pneumonia when he was close to 80 yrs old. General Exam Limitations: no limitations General appearance: alert, in no apparent distress Head exam: Present: normocephalic Eye exam: Present: normal appearance, PERRL, EOMI Neck exam: Present: normal inspection Respiratory exam: Present: normal lung sounds bilaterally Cardiovascular Exam: Present: tachycardia, irregular rhythm GI/Abdominal exam: Present: soft. Absent: tenderness Extremities exam: Present: normal inspection Neurological exam: Present: alert, oriented X3, CN II-XII intact. Absent: motor sensory deficit Expanded Neurological exam: Present: protecting the airway Patient oriented to: Present: person, place, time Speech: Present: fluid speech Cranial nerves: EOM's Intact: Normal, Facial Sensation: Normal Sensory exam: Upper Extremity Light Touch: Normal, Lower Extremity Light Touch: Normal Motor strength exam: RUE: 5, LUE: 5, RLE: 5, LLE: 5 Eye Response: (4) open spontaneously Motor Response: (6) obeys commands Verbal Response: (5) oriented Psychiatric exam: Present: normal affect, normal mood Skin exam: Present: normal color Course Vital Signs 10/12/21 09:35 Temperature 98.4 F Pulse Rate 124 H Respiratory 18 Rate Blood Pressure 155/111 O2 Sat by Pulse 95 Oximetry EKG Findings - EKG Comments: EKG Findings:: A. fib with RVR, rate 120. QRS 78. QT 341. QTc 412. Normal axis. Normal QRS. No acute ST change. Medical Decision Making - Medical Decision Making Patient reevaluated and feeling somewhat better. Only complains of lightheadedness. No weakness on exam. Dr. Beck has been paged Case was discussed with Dr. Beck, who will admit admit this patient. - Lab Data Result diagrams: 10/12/21 10:29 05/29/22 10:29 Lab Results 10/12/21 10/12/21 10/12/21 Range/Units 10: 10: 10:29 WBC 2.8 L (3.8-10.6) k/uL RBC 3.46 L (4.30-5.90) m/uL Hgb 11.1 L (13.0-17.5) gm/dL Hct 34.9 L (39.0-53.0) % MCV 100.9 H (80.0-100.0) fL MCH 32.1 (25.0-35.0) pg MCHC 31.8 (31.0-37.0) g/dL RDW 14.3 (11.5-15.5) % Plt Count 108 L (150-450) k/uL MPV 8.2 Neutrophils % 49 % Lymphocytes % 40 % Monocytes % 7 % Eosinophils % 1 % Basophils % 1 % Neutrophils # 1.4 (1.3-7.7) k/uL Lymphocytes # 1.1 (1.0-4.8) k/uL Monocytes # 0.2 (0-1.0) k/uL Eosinophils # 0.0 (0-0.7) k/uL Basophils # 0.0 (0-0.2) k/uL Hypochromasia Slight Macrocytosis Slight PT 11.9 (9.0-12.0) sec INR 1.1 (<1.2) APTT 20.5 L (22.0-30.0) sec Sodium 143 (137-145) mmol/L Potassium 3.8 (3.5-5.1) mmol/L Chloride 107 (98-107) mmol/L Carbon Dioxide 26 (22-30) mmol/L Anion Gap 10 mmol/L BUN 11 (9-20) mg/dL Creatinine 0.84 (0.66-1.25) mg/dL Est GFR (CKD-EPI)AfAm >90 (>60 ml/min/1.73 sqM) Est GFR (CKD-EPI)NonAf >90 (>60 ml/min/1.73 sqM) Glucose 149 H (74-99) mg/dL Calcium 7.9 L (8.4-10.2) mg/dL Magnesium 1.6 (1.6-2.3) mg/dL Total Bilirubin 0.8 (0.2-1.3) mg/dL AST 91 H (17-59) U/L ALT 39 (4-49) U/L Alkaline Phosphatase 123 (38-126) U/L Troponin I (0.000-0.034) ng/mL Total Protein 7.0 (6.3-8.2) g/dL Albumin 3.6 (3.5-5.0) g/dL Serum Alcohol 182 mg/dL 10/12/21 Range/Units 10:29 WBC (3.8-10.6) k/uL RBC (4.30-5.90) m/uL Hgb (13.0-17.5) gm/dL Hct (39.0-53.0) % MCV (80.0-100.0) fL MCH (25.0-35.0) pg MCHC (31.0-37.0) g/dL RDW (11.5-15.5) % Plt Count (150-450) k/uL MPV Neutrophils % % Lymphocytes % % Monocytes % % Eosinophils % % Basophils % % Neutrophils # (1.3-7.7) k/uL Lymphocytes # (1.0-4.8) k/uL Monocytes # (0-1.0) k/uL Eosinophils # (0-0.7) k/uL Basophils # (0-0.2) k/uL Hypochromasia Macrocytosis PT (9.0-12.0) sec INR (<1.2) APTT (22.0-30.0) sec Sodium (137-145) mmol/L Potassium (3.5-5.1) mmol/L Chloride (98-107) mmol/L Carbon Dioxide (22-30) mmol/L Anion Gap mmol/L BUN (9-20) mg/dL Creatinine (0.66-1.25) mg/dL Est GFR (CKD-EPI)AfAm (>60 ml/min/1.73 sqM) Est GFR (CKD-EPI)NonAf (>60 ml/min/1.73 sqM) Glucose (74-99) mg/dL Calcium (8.4-10.2) mg/dL Magnesium (1.6-2.3) mg/dL Total Bilirubin (0.2-1.3) mg/dL AST (17-59) U/L ALT (4-49) U/L Alkaline Phosphatase (38-126) U/L Troponin I <0.012 (0.000-0.034) ng/mL Total Protein (6.3-8.2) g/dL Albumin (3.5-5.0) g/dL Serum Alcohol mg/dL - Radiology Data Radiology results: report reviewed (CT brain reveals no acute process), image reviewed (Two-view chest x-ray shows no acute process) Disposition Clinical Impression: TIA (transient ischemic attack), Alcohol intoxication Disposition: ADMITTED IP TO THIS HOSP Is patient prescribed a controlled substance at d/c from ED?: No Referrals: Doug Beck MD [Primary Care Provider] - 1-2 days Time of Disposition: 11:36
--- NOTE | 2021-10-12 10:25 | XR ---
EXAMINATION TYPE: XR chest 2V DATE OF EXAM: 10/12/2021 COMPARISON: 07/20/2021 INDICATION: Altered mental status TECHNIQUE: Frontal and lateral views of the chest are obtained. FINDINGS: The heart size is upper limits of normal. The pulmonary vasculature is normal. The lungs are clear. Old changes are at the left humeral head. IMPRESSION: 1. No acute pulmonary process.
[2021-10-12 10:37] LABS: Basophils % (A) 1 %; Eosinophils % (A) 1 %; HCT 34.9 % (39.0-53.0); HGB 11.1 gm/dL (13.0-17.5); Hypochromasia Slight; Lymphocytes # (A) 1.1 k/uL (1.0-4.8); Lymphocytes % (A) 40 %; MCH 32.1 pg (25.0-35.0); MCHC 31.8 g/dL (31.0-37.0); MCV 100.9 fL (80.0-100.0); Macrocytosis Slight; Mean Platelet Volume 8.2; Monocytes # (A) 0.2 k/uL (0-1.0); Monocytes % (A) 7 %; Neutrophils # (A) 1.4 k/uL (1.3-7.7); Neutrophils % (A) 49 %; Platelet Count 108 k/uL (150-450); RBC 3.46 m/uL (4.30-5.90); RDW 14.3 % (11.5-15.5); WBC 2.8 k/uL (3.8-10.6)
--- NOTE | 2021-10-12 10:49 | CT ---
EXAMINATION TYPE: CT brain wo con DATE OF EXAM: 10/12/2021 COMPARISON: Neurodeficits INDICATION: Left side numbness, chest pains DLP: 1125.6 mGycm, Automated exposure control for dose reduction was used. CONTRAST: None CT of the brain is performed utilizing 3 mm thick sections through the posterior fossa and 3 mm thick sections through the remaining calvarium. Study is performed within 24 hours of arrival to the hosp ital. No abnormal hyperdensity is present to suggest an acute intracranial hemorrhage. No mass lesion is evident. No acute infarcts are evident. Tiny old lacunar infarct may be within the right basal ganglion Ventricles and sulci are appropriate for the patient age. Paranasal sinuses and mastoid air cells within the [id number] are clear. IMPRESSIONS: 1. No suspicious acute intracranial changes. Follow-up MRI can be performed as clinically indicated .
[2021-10-12 10:50] LABS: ALT 39 U/L (4-49); AST 91 U/L (17-59); African American GFR (CKD) >90 (>60 ml/min/1.73 sqM); Albumin 3.6 g/dL (3.5-5.0); Alkaline Phosphatase 123 U/L (38-126); Anion Gap 10 mmol/L; Blood Urea Nitrogen 11 mg/dL (9-20); Calcium 7.9 mg/dL (8.4-10.2); Carbon Dioxide 26 mmol/L (22-30); Chloride 107 mmol/L (98-107); Glucose 149 mg/dL (74-99); Magnesium 1.6 mg/dL (1.6-2.3); Non-African American GFR(CKD) >90 (>60 ml/min/1.73 sqM); Potassium 3.8 mmol/L (3.5-5.1); Sodium 143 mmol/L (137-145); Total Bilirubin 0.8 mg/dL (0.2-1.3)
[2021-10-12 10:52] LABS: Alcohol 182 mg/dL
[2021-10-12 10:59] LABS: INR 1.1 (<1.2); Prothrombin Time 11.9 sec (9.0-12.0)
[2021-10-12 11:01] LABS: Partial Thromboplastin Time 20.5 sec (22.0-30.0)
--- NOTE | 2021-10-12 11:41 | CT ---
EXAMINATION TYPE: CT angio head neck DATE OF EXAM: 10/12/2021 HISTORY: Left side numbness, chest pains COMPARISON: 10/12/[address] DLP: 592.2 mGycm. Automated Exposure Control for Dose Reduction was Utilized. TECHNIQUE: CTA scan of the neck is performed with IV Contrast, patient injected with 65 mL of Isovue 370, axial images are obtained, coronal and sagittal reformatted images are reviewed. Three-D recons tructed images are created on an independent workstation and reviewed. Source images are reviewed. FINDINGS: Carotid/Vascular Structures: There is a three-vessel arch. Vertebral arteries are codominant. Carotid bifurcations appear normal without significant stenosis. Internal carotid arteries are patent to the skull base. Cervical of Mg: Vertebral basilar system appears normal. Posterior cerebral vasculature is unrema rkable. Internal carotid arteries bifurcate normally into A1 and M1 segments. A2 segments are normal. The anterior communicating artery is patent. Posterior communicating arteries are absent. IMPRESSION: 1. No flow-limiting stenosis bilateral carotid bifurcations. 2. Normal [place] of Mg NASCET criteria was used in interpretation of this exam?
[2021-10-12] MEDS ORDERED: ASPIRIN 325 MG TAB PO STA (11:46)
[2021-10-12] MEDS ORDERED: LORazepam 2 MG/ML INJ IV PRN ×2 (11:47)
[2021-10-12] MEDS ORDERED: THIAMINE 100 MG/ML 2 ML VIAL IM STA (11:47)
[2021-10-12] MEDS: SODIUM CHLORIDE 0.9% 1,000 ML IV SCH ×2 (12:01→19:36)
[2021-10-12] MEDS: LORazepam 2 MG/ML INJ IV PRN ×2 (12:11→22:32)
[2021-10-12] MEDS ORDERED: METOPROLOL SUCCINATE (ER) 100 MG TAB.ER.24H PO STA (14:27)
[2021-10-12] MEDS: THIAMINE 100 MG TAB PO SCH (19:15)
[2021-10-12] MEDS ORDERED: ONDANSETRON 4 MG/2 ML VIAL IVP PRN (19:30)
[2021-10-12] MEDS: MAGNESIUM OXIDE 400 MG TAB PO SCH (22:05)
[2021-10-12] MEDS: traZODone HCL 50 MG TAB PO PRN (22:32)
[2021-10-13] MEDS: FERROUS SULFATE 325 MG TAB PO SCH (08:30)
[2021-10-13] MEDS: MAGNESIUM OXIDE 400 MG TAB PO SCH ×2 (08:30→20:55)
[2021-10-13] MEDS: PANTOPRAZOLE 40 MG TABLET PO SCH (08:30)
[2021-10-13] MEDS: METOPROLOL SUCCINATE (ER) 100 MG TAB.ER.24H PO SCH (08:30)
[2021-10-13] MEDS: LOSARTAN 50 MG TAB PO SCH (08:30)
[2021-10-13] MEDS: SUCRALFATE 1 GM TAB PO SCH ×3 (08:30→18:07)
[2021-10-13] MEDS: FOLIC ACID 1 MG TAB PO SCH (08:31)
[2021-10-13] MEDS: THIAMINE 100 MG TAB PO SCH ×2 (08:31→18:07)
--- NOTE | 2021-10-13 08:59 | P.CNNES ---
History of Present Illness Consult date: 10/12/21 Requesting physician: Sam Dominguez Reason for Consult: eval for tia History of Present Illness: Patient is a 66-year-old male came to the hospital by ambulance today at 9:34 AM. Patient states that he went to bed at 8 PM last night. When he woke up this morning at 8 or 9 AM, he noticed his left arm was numb, his left side of the face was swollen. Patient mainly points to numbness of the little finger of the left hand. Also complains of some numbness in the left pectoral region, which goes down to the left arm (describes in a radicular fashion). Patient admits that he sleeps on his left side. Also noticed some numbness of the left foot in the morning, which is not seems to have resolved after an hour. He de nied any slurred speech. He did notice that his head was jerking to the left side. The night before, he drank a pint of 5 O'Clock alcohol. Patient states that his left arm is still numb, but not as bad. Patient does have history of scoliosis and uses cane for last one-year. Patient has history of atrial fibrillation, but currently not on any anticoagulant. Patient says that his insurance did not cover Eliquis or Xarelto. Patient has mentioned to the EMS staff that the symptoms have been going on intermittently for the last few weeks. His fingers lock up. Patient denied any chest pain, difficulty breathing, shortness of breath, headache, dizziness, blurred vision, tinnitus, jaw pain, neck pain, back pain, abdominal pain, nausea vomiting, fever. He does have scoliosis. Patient's vitals at the scene was blood pressure 160/99, pulse rate 1:30, respiration 20, saturation 95% and blood sugar 183 mg/dL. Patient's vitals on arrival blood pressure 155/111, pulse is 124, temperature 98.4. Blood test shows WBC 2.8, hemoglobin 11.1 with elevated MCV 100.9. Weight legs are slightly decreased 108. PT/PTT normal, Chem-7 normal, AST is elevated 91 with normal ALT 39. Troponin negative, blood level 182. He has had multiple admissions in the past with alcohol intoxication. Chest x-ray showed no acute process. EKG shows atrial flutter/tachycardia with rapid ventricular response with heart rate of 120. CT head showed no suspicious acute intracranial changes. Patient states that he has history of a mini stroke before few years ago, which affected his left side of the body, got numb. No residual deficits. Patient claims that he had a seizure in the past after he had a stress test. Patient denies any use of tobacco. Drinks alcohol around a pint of 5 O'Clock. Denies any drug use. Review of Systems Patient states that when he sits or moves around, starts coughing. All 14 points a few system reviewed, unremarkable except as mentioned in HPI. Past Medical History Past Medical History: Atrial Fibrillation, Chest Pain / Angina, COPD, CVA/TIA, Diabetes Mellitus, GERD/Reflux, GI Bleed, Hearing Disorder / Deafness, Hyperlipidemia, Hypertension, Liver Disease, Pneumonia, Prostate Disorder, Pulmonary Embolus (PE) Additional Past Medical History / Comment(s): Pt recently hospitalized at [facility] with pneumonia. Other hx: GI bleed/ esophageal varicies banded. Other hx: Alcoholism, alcohol withdrawal DTs and possibly a seizure in 2018 r/t withdrawal, chronic alcoholic cirrhosis with portal hypertension and previous history of upper and lower GI bleeding, esophageal varices, previous history of childhood seizure which he outgrew not taking any antiepileptic medication, pulmonary embolism x 2 R lung, TIA, diverticulosis, chronic lower bilateral extremity ankle edema if he walks a lot, previous history of septicemia, cervical disc disease, chronic neck pain, chronic back pain with r sided sciatica, degenerative arthritis involving the lower back, scoliosis, tinnitus, vitamin D deficiency, iron anemia, chronic thrombocytopenia, denies MRSA, C-DIFF -2018 History of Any Multi-Drug Resistant Organisms: MRSA Date of last positivie culture/infection: 03/17/18 MDRO Source:: stomach Past Surgical History: Appendectomy, Cholecystectomy Additional Past Surgical History / Comment(s): EGDs/esophageal varicies bandings, colonoscopies. Past Anesthesia/Blood Transfusion Reactions: No Reported Reaction Additional Past Anesthesia/Blood Transfusion Reaction / Comment(s): after appendix removed sob Past Psychological History: Anxiety, Depression Smoking Status: Never smoker Past Alcohol Use History: Occasional Past Drug Use History: None Reported - Past Family History Mother Family Medical History: COPD, CVA/TIA, Dementia Additional Family Medical History / Comment(s): from a stroke Father Family Medical History: Pneumonia Additional Family Medical History / Comment(s): Father of pneumonia when he was close to 80 yrs old. Medications and Allergies Home Medications Medication Instructions Recorded Confirmed Type Ferrous Sulfate [Iron (65 MG 325 mg PO DAILY #30 tab 06/07/19 10/12/21 Rx Elemental)] Folic Acid 1 mg PO DAILY 01/07/20 10/12/21 History traZODone HCL 50 mg PO HS PRN 01/07/20 10/12/21 History Ergocalciferol [Vitamin D2 (1250 1,250 mcg PO Q30D 10/30/20 10/12/21 History Mcg = 80091 Iu)] Naproxen 500 mg PO BID PRN 10/30/20 10/12/21 History Omeprazole 20 mg PO DAILY 03/02/21 10/12/21 History Magnesium Oxide [Mag-Ox] 400 mg PO BID #60 tab 04/03/21 10/12/21 Rx Thiamine [Vitamin B-1] 100 mg PO W/LUNCH 07/21/21 10/12/21 History Atorvastatin [Lipitor] 40 mg PO DAILY 30 Days #30 tab 07/25/21 10/12/21 Rx Cyclobenzaprine [Flexeril] 10 mg PO TID PRN #30 tab 07/25/21 10/12/21 Rx Sucralfate [Carafate] 1 gm PO AC-TID #90 tablet 07/25/21 10/12/21 Rx Losartan [Cozaar] 50 mg PO TID 09/23/21 10/12/21 History Metoprolol Succinate (ER) [Toprol 100 mg PO DAILY #30 09/26/21 10/12/21 Rx XL] Aspirin 325 mg PO DAILY 10/12/21 10/12/21 History Allergies Allergy/AdvReac Type Severity Reaction Status Date / Time adhesive tape Allergy Rash/Hives Verified 10/12/21 15:24 latex Allergy Unknown Verified 10/12/21 15:24 egg AdvReac Nausea & Verified 10/12/21 15:24 Vomiting lisinopril AdvReac EYES Verified 10/12/21 15:24 BURN&ITCH/WEAKNESS tomato AdvReac Nausea & Verified 10/12/21 15:24 Vomiting & Diarrhea Physical Examination - Vital Signs Vital Signs: Vital Signs Temp Pulse Resp BP Pulse Ox 10/12/21 12:12 107 H 18 160/106 98 10/12/21 11:40 116 H 18 166/114 98 10/12/21 09:48 110 H 18 163/94 95 10/12/21 09:35 98.4 F 124 H 18 155/111 95 Intake and Output 10/11/21 10/12/21 10/12/21 22:59 06:59 14:59 Other: Weight 92.3 kg Patient is an elderly male, in no acute distress. Patient is alert awake oriented to time place and person. Patient knows it is September and the year is , and that is in [facility] and name of the current president. Speech and language functions are normal. Patient can name and repeat very well. No aphasia or dysarthria. Attention, concentration and fund of knowledge is adequate. On cranial examination, pupils are round and reacting to light, visual guadalupe are full on confrontation, with no neglect on double simultaneous distribution. His extraocular muscles are intact with no nystagmus. Face is symmetric, tongue protrudes to the midline. Palatal elevation and sensation normal, hearing and shoulder shrug normal, facial sensation normal. Shoulder shrug normal. On muscle strength testing, there is no pronator drift and the strength is normal in arms and legs distally and proximally, except left deltoid which is 5- related to previous broken shoulder earlier this year. Deep tendon reflexes are symmetric, 1 in the upper limbs, 2 at the knees 1 ankles and plantars downgoing bilaterally. Sensory to touch is equal with no neglect. Cerebellar function showed no ataxia for [id number] testing. No dysdiadochokinesia. Tone and bulk of muscles normal. Gait deferred. On general examination, there is no carotid bruit or murmur, S1-S2 audible. Abdomen is soft nontender. No organomegaly, bowel sounds present. Chest is clear. Peripheral pulses are present. Mild peripheral edema. Results - Laboratory Findings CBC and BMP: 10/12/21 10:29 10/12/21 10:29 Abnormal Lab Findings: Abnormal Labs 10/12/21 10/12/21 10/12/21 10: 10:29 10:29 WBC 2.8 L RBC 3.46 L Hgb 11.1 L Hct 34.9 L MCV 100.9 H Plt Count 108 L APTT 20.5 L Glucose 149 H Calcium 7.9 L AST 91 H Assessment and Plan Assessment: * 66-year-old male came to the hospital with alcohol intoxication and also because of waking up on the left side with left arm numbness. Patient also has some numbness of the left pectoral region and points his numbness mainly to the left little finger. Uncertain if central or peripheral (peripheral nerve versus plexus) related from sleeping on the left side. Patient also had transient numbness of the left foot, which raises concern about ischemic process, particularly due to presence of atrial fibrillation flutter. Patient was not on any anticoagulation. * Atrial flutter/fibrillation. * CAD * COPD * Diabetes * Hypertension * Hyperlipidemia * Chronic alcoholism * Report of cirrhosis and esophageal varices per electronic records. * History of a seizure in 2018 related to alcohol withdrawal. Plan: * Patient is currently on aspirin, which will be continued. * Cardiology consultation for atrial fibrillation, possible stroke/TIA, to consider anticoagulation. Patient does have chronic liver disease therefore risks and benefits has to be considered. Patient states that his insurance previously did not cover Eliquis. * CTA of head and neck showed no flow-limiting stenosis bilateral ICA. Normal [place] of Mg. * We will check 2-D echo with bubble study * Fasting lipid panel, hemoglobin A1c * Watch for delirium tremens. * Continue thiamine 100 mg daily and folic acid. * For DVT prophylaxis, would defer to IM because of thrombocytopenia. * Neurology will follow. Thank you for the consultation.
[2021-10-13] MEDS ORDERED: ASPIRIN 325 MG TAB PO SCH ×2 (09:00)
--- NOTE | 2021-10-13 10:01 | CONS ---
ERICA Mcnamara is a 66-year-old gentleman with history of paroxysmal atrial fibrillation, alcohol abuse, hypertension and dyslipidemia who presented to hospital with symptoms of new-onset left arm numbness that involves the left side of his face and also the left pectoral region. He has been evaluated by neurologist, who feels that this is a CVA, who is unsure if this represents a central or peripheral related left-sided symptoms, has consulted us because of history of paroxysmal atrial fibrillation, patient not being on anticoagulant. The patient was tried on Eliquis, Xarelto and Coumadin at various times in the past, and due to lack of insurance coverage and noncompliance, he was not able to take those medications. At the time of my evaluation this morning, he appears comfortable at rest. He still has some numbness and discomfort in the left upper extremity. EKG shows sinus tachycardia with mild ST-T wave changes. AST is elevated. ALT is normal. Troponin is negative. The serum alcohol level was 182. The patient has a history of paroxysmal atrial fibrillation and the neurologist is undecided whether this represents a central or a peripheral event. We should consider anticoagulation with Eliquis whenever it is safe to start the anticoagulant per Neurology. We will start him on Eliquis 5 b.i.d. and try to see if we can get him some form of . It is difficult to give this patient who has alcohol abuse history Coumadin because of the challenges in managing his Coumadin dosing. I talked to patient about quitting drinking, which makes atrial fibrillation worse and increases the risk of falls and danger anticoagulant. PAST MEDICAL HISTORY: Significant for hypertension, EtOH abuse, dyslipidemia and paroxysmal atrial fibrillation. HOME MEDICATIONS: Home medications include Toprol-XL 100 daily, losartan 50 t.i.d., Lipitor 40 daily and aspirin. ALLERGIES: LATEX, LISINOPRIL, ADHESIVE TAPE. FAMILY HISTORY: Significant for coronary artery disease. SOCIAL HISTORY: Significant for smoking and ETOH abuse. REVIEW OF SYSTEMS: Fourteen out of 14 review of systems has been performed. Pertinents are as documented in history of presenting illness. PHYSICAL EXAMINATION: Comfortable at rest. Heart rate is 87 beats per minute, blood pressure 160/98, respiratory rate is 16. Oxygen saturation is 94%. There is no jugular venous distention. Carotid upstroke is normal. There is no bruit. Chest exam reveals good air entry bilaterally. Heart exam reveals first and second heart sounds. No gallop. No murmur. Abdomen is soft. Examination of extremities did not reveal any edema. Peripheral pulses are felt. ASSESSMENT: 1. Left upper extremity numbness; cerebrovascular accident versus peripheral nerve compression. 2. History of paroxysmal atrial fibrillation. 3. Hypertension. PLAN: Patient will benefit from long-term anticoagulation. Given his history of hypertension and atrial fibrillation and having already been tried on anticoagulants in the past, we will start him on anticoagulant whenever the neurologist thinks it is safe to start him on one. I will obtain a 2D echo to evaluate his LV function. He will need outpatient followup with Cardiology. MMODL / IJN: [id number] /
[2021-10-13] MEDS: APIXABAN 5 MG TAB PO SCH ×2 (10:28→20:55)
[2021-10-13 11:29] LABS: Chol/HDL Ratio 4.52 Ratio; LDL Cholesterol,Calculated 151.4 mg/dL (0.0-131.0)
[2021-10-13] MEDS: SODIUM CHLORIDE 0.9% 1,000 ML IV SCH ×2 (18:15→18:16)
--- NOTE | 2021-10-13 18:21 | HP ---
HISTORY AND PHYSICAL CHIEF COMPLAINT: Hypoesthesias in the left arm and left side of the face. HISTORY OF PRESENT ILLNESS: This is another recent admission for this 66-year-old white male alcoholic. He is in and out of the hospital quite frequently, usually with hypertension, chest pain and shortness of breath. He is very non-compliant and does not take his medications. He also drinks heavily. He came to the emergency room this time complaining of numbness in the left arm and left side of the face. Blood pressure was elevated. REVIEW OF SYSTEMS: He denies any diplopia, other neurologic deficits, headaches, etc. Past medical history, family history, and personal and social histories are all otherwise noncontributory or unremarkable. PHYSICAL EXAMINATION: Blood pressure is 192/110 with a pulse of 88, respirations of 30, and he is afebrile. In general he appeared to be in no acute distress. Skin color was normal. Skin was warm and dry. Lymph nodes were not enlarged. Head, ears, eyes, nose, mouth and throat were normal. Neck veins were not distended. Carotids were normal. There were no bruits. Chest was clear to auscultation and percussion. Cardiac exam demonstrated sinus tachycardia. The abdomen was soft and nontender. Extremities were normal. Neurologically he seems to be intact. Cranial nerves were intact from 2 to 12 and sensory and motor exam seemed to be normal. There was no detectable weakness on the left. Toes are downgoing. He is admitted to the hospital with the diagnoses: 1. Hypoesthesias, left side of the face and left arm. 2. History of uncontrolled hypertension. 3. Chronic alcoholism. PLAN: 1. Bedrest. 2. IV fluids. 3. Neurologic evaluation. MMODL / IJN: [id number] /
--- NOTE | 2021-10-13 18:46 | PN ---
PROGRESS NOTE DATE OF SERVICE: 10/13/2021 CHIEF COMPLAINT: Hypoesthesias in the left arm and left side of the face. HISTORY OF PRESENT ILLNESS: This gentleman is doing well. He states that most of the symptoms have disappeared. He has no weakness, headaches, double vision, or any other cranial nerve or sensory motor issue. PHYSICAL EXAMINATION: His chest is clear. Cardiac exam is normal. Abdomen is soft and nontender. Neurologically he seems to be intact. IMPRESSION: 1. Left facial and left arm numbness. 2. History of hypertension, uncontrolled. 3. Alcoholism. PLAN: Continue to monitor his vital signs and neurologic status, and if he remains stable, he can probably go home tomorrow. MMODL / IJN: [id number] /
[2021-10-13] MEDS: traZODone HCL 50 MG TAB PO PRN (23:22)
--- NOTE | 2021-10-14 00:18 | P.PN ---
Subjective Progress Note Date: 10/13/21 Patient was seen for a follow-up. Denies any new neurological symptoms. Patient continues to have numbness in the left pectoral region extending to the left arm. Still has locking of the left little finger. No new concerns. Objective - Vital Signs Vital signs: Vital Signs Temp 98.2 F 10/13/21 19:02 Pulse 76 10/13/21 19:02 Resp 20 10/13/21 19:02 BP 153/83 10/13/21 19:02 Pulse Ox 96 10/13/21 19:02 FiO2 Intake & Output 10/13/21 10/13/21 10/14/21 06:59 18:59 06:59 Intake Total 354 Balance 354 Intake: Oral 354 Other: Voiding Method Toilet # Voids 1 2 2 # Bowel Movements 2 - Exam Examination unchanged. - Labs CBC & Chem 7: 10/12/21 10:29 10/12/21 10:29 Labs: Abnormal Lab Results - Last 24 Hours (Table) 10/13/21 Range/Units 05:38 Cholesterol 226.00 H (0.00-200.00) mg/dL LDL Cholesterol, Calc 151.4 H (0.0-131.0) mg/dL Assessment and Plan Assessment: * 66-year-old male came to the hospital with alcohol intoxication and also because of waking up on the left side with left arm numbness. Patient also has some numbness of the left pectoral region and points his numbness mainly to the left little finger. Uncertain if central or peripheral (peripheral nerve versus plexus) related from sleeping on the left side. Patient also had transient numbness of the left foot, which raises concern about ischemic process, particularly due to presence of atrial fibrillation flutter. Patient was not on any anticoagulation. * Atrial flutter/fibrillation. * CAD * COPD * Diabetes * Hypertension * Hyperlipidemia * Chronic alcoholism * Report of cirrhosis and esophageal varices per electronic records. * History of a seizure in 2018 related to alcohol withdrawal. Plan: * Patient was seen by cardiology, started on Eliquis 5 mg twice a day for stroke prevention related to atrial fibrillation. * Patient also on aspirin, will decrease dose to 81 mg daily. * CTA of head and neck showed no flow-limiting stenosis bilateral ICA. Normal upper [place] of Mg. * Await 2-D echo with bubble study * Fasting lipid panel with cholesterol 226, LDL 151, HDL 50 and triglycerides 123. Recommend starting statins, but his AST is 91. We will repeat hepatic panel in a.m. * Hemoglobin A1c pending. * Watch for delirium tremens. * Continue thiamine 100 mg daily and folic acid.
[2021-10-14] MEDS: SODIUM CHLORIDE 0.9% 1,000 ML IV SCH (04:43)
[2021-10-14] MEDS: THIAMINE 100 MG TAB PO SCH (08:30)
[2021-10-14] MEDS: APIXABAN 5 MG TAB PO SCH (08:30)
[2021-10-14] MEDS: PANTOPRAZOLE 40 MG TABLET PO SCH (08:30)
[2021-10-14] MEDS: METOPROLOL SUCCINATE (ER) 100 MG TAB.ER.24H PO SCH (08:30)
[2021-10-14] MEDS: FERROUS SULFATE 325 MG TAB PO SCH (08:30)
[2021-10-14] MEDS: LOSARTAN 50 MG TAB PO SCH (08:30)
[2021-10-14] MEDS: SUCRALFATE 1 GM TAB PO SCH ×2 (08:30→12:40)
[2021-10-14] MEDS: MAGNESIUM OXIDE 400 MG TAB PO SCH (08:30)
[2021-10-14] MEDS: FOLIC ACID 1 MG TAB PO SCH (08:30)
[2021-10-14] MEDS ORDERED: ASPIRIN 81 MG PO SCH (09:00)
[2021-10-14] MEDS ORDERED: ATORVASTATIN 40 MG TAB PO SCH (09:00)
[2021-10-14 09:02] VITALS: BP 145/88; PULSE 83; RESP 18; TEMP 98.2
[2021-10-14 10:52] LABS: Albumin 3.6 g/dL (3.8-4.9); Albumin/Globulin Ratio 1.15 (1.60-3.17); Bilirubin, Conjugated 0.33 mg/dL (0.20-0.40); Bilirubin,Unconjugated 0.74 mg/dL (0.20-1.00); Globulin 3.1 g/dL (1.6-3.3); Total Bilirubin 1.1 mg/dL (0.30-1.20); Total Protein 6.7 g/dL (6.2-8.2)
--- NOTE | 2021-10-14 11:41 | P.PN ---
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 He is admitted to the hospital with left-sided weakness and being evaluated by neurology for possible TIA. The patient denies any chest pain or pressure this morning. He denies shortness of breath. The patient was resumed on Eliquis yesterday per cardiology. However per case management, the patient is not covered for Eliquis by his insurance. The patient states he has not been taking anticoagulation on an outpatient basis because he could not afford it. PHYSICAL EXAM: VITAL SIGNS: Reviewed. GENERAL: Well-developed in no acute distress. NECK: Supple. No JVD or thyromegaly LUNGS: Respirations even and unlabored. Lungs essentially clear to auscultation bilaterally. HEART: Regular rate and rhythm. S1 and S2 heard. EXTREMITIES: Normal range of motion. No clubbing or cyanosis. Peripheral pulses intact. No lower extremity edema ASSESSMENT: Left-sided weakness, possible TIA Paroxysmal atrial fibrillation, not on anticoagulation on outpatient basis Hypertension History of alcohol abuse History of medication noncompliance PLAN: Per case management, Eliquis is not covered by the patient's insurance. However Xarelto is covered and is a $4 co-pay. We'll switch the patient to Xarelto 20 mg daily. Medication compliance was reinforced with the patient. He is stable from a cardiac perspective with outpatient follow-up recommended. Nurse practitioner note has been reviewed by physician. Signing provider agrees with the documented findings, assessment, and plan of care. Objective - Vital Signs Vital signs: Vital Signs Temp 98.2 F 10/14/21 07:00 Pulse 83 10/14/21 07:00 Resp 18 10/14/21 07:00 BP 145/88 10/14/21 07:00 Pulse Ox 95 10/14/21 07:00 FiO2 Intake & Output 10/13/21 10/14/21 10/14/21 18:59 06:59 18:59 Intake Total 354 118 Balance 354 118 Intake: Oral 354 118 Other: Voiding Method Toilet # Voids 2 1 # Bowel Movements 2 - Labs CBC & Chem 7: 10/12/21 10:29 10/12/21 10:29 Labs: Abnormal Lab Results - Last 24 Hours (Table) 10/14/21 Range/Units 07:47 AST 82 H (14-35) U/L Alkaline Phosphatase 130 H (41-126) U/L Albumin 3.6 L (3.8-4.9) g/dL Albumin/Globulin Ratio 1.15 L (1.60-3.17) g/dL
--- NOTE | 2021-10-14 13:32 | DS ---
DISCHARGE SUMMARY CHIEF COMPLAINT: Hypesthesias in the left arm with hypertension. HISTORY OF PRESENT ILLNESS AND PHYSICAL EXAMINATION: Details of this man's history and physical can be found in the initial workup. COURSE IN THE HOSPITAL: After admission, he was placed on bedrest and his blood pressure was brought under good control. His neurologic symptoms disappeared. He had no other abnormal findings. This gentleman's hospitalizations typical of those on off over the last several years. He does not take his medications and then drinks alcohol. He comes in with elevated blood pressures every time. He will go home on his usual activity, diet, medication, and admonished to take his medications and not drink. He will be seen in several days. FINAL DIAGNOSES: 1. Hypesthesias in the left upper extremity. 2. Uncontrolled hypertension. 3. Chronic alcoholism. 4. Noncompliant patient. OPERATIONS: None. CONSULTATION: None. He is improved. MMPREETHIL / MICHAEL: [id number] /
--- NOTE | 2021-10-14 13:43 | CA ---
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 18 - 58 / 22 - 52 cm??? M-MODE Aortic Root Diameter MM 3.4 cm LA Systolic Diameter MM 2.4 cm LA Ao Ratio MM 0.7 AV Cusp Separation MM 1.9 cm DOPPLER AV Peak Velocity 116.3 cm/s AV Peak Gradient 5.4 mmHg MV Area PHT 4.0 cm??? MR Peak Velocity 92.2 cm/s MR Peak Gradient 3.4 mmHg Mitral E Point Velocity 57.6 cm/s Mitral A Point Velocity 87.5 cm/s Mitral E to A Ratio 0.7 MV Deceleration Time 189.1 ms MV E' Velocity 5.9 cm/s Mitral E to MV E' Ratio 9.8 TR Peak Velocity 139.6 cm/s TR Peak Gradient 7.8 mmHg Right Ventricular Systolic Press 12.8 mmHg PV Peak Velocity 112.0 cm/s PV Peak Gradient 5.0 mmHg FINDINGS Left Ventricle Mildly increased septal wall thickness. Left ventricular cavity size normal. Left ventricular ejection fraction is estimated at 55-60 %. Right Ventricle Normal right ventricular size and function. Right Atrium Negative agitated saline bubble study for right to left shunt. Left Atrium The left atrium is normal in size. Mitral Valve Structurally normal mitral valve without significant stenosis or prolapse. There is no mitral regurgitation. Aortic Valve Structurally normal aortic valve without significant sclerosis or stenosis. There is no aortic regurgitation.focal thickening of the aortic valve cusps. Tricuspid Valve Structurally normal tricuspid valve without significant stenosis. Pulmonary artery systolic pressure is normal. Pulmonic Valve Structurally normal pulmonic valve without significant stenosis. There is no pulmonic regurgitation. Pericardium Normal pericardium without effusion. Aorta Normal aortic root dimension. CONCLUSIONS Mild LVH Normal left ventricular ejection fraction 55-60% Negative bubble study for shunts Previewed by: Dr. Harish Olmedo DO (Electronically Signed) Final Date: 14 Oct 2021 13:42
--- NOTE | 2021-10-14 16:35 | P.PN ---
Subjective Progress Note Date: 10/14/21 Patient was seen for a follow-up. Denies any new neurological symptoms. Patient continues to have numbness in the left pectoral region extending to the left arm. Still has locking of the left little finger. No new concerns. Sometimes gets sharp pain in the left pectoral region. Objective - Vital Signs Vital signs: Vital Signs Temp 98.2 F 10/14/21 07:00 Pulse 83 10/14/21 07:00 Resp 18 10/14/21 07:00 BP 145/88 10/14/21 07:00 Pulse Ox 95 10/14/21 07:00 FiO2 Intake & Output 10/13/21 10/14/21 10/14/21 18:59 06:59 18:59 Intake Total 354 298 Balance 354 298 Intake: Oral 354 298 Other: Voiding Method Toilet # Voids 2 1 # Bowel Movements 2 - Exam Patient's mental status, speech and language functions are normal. Cranial nerves are normal. No Jazmín's. Muscle strength is normal in both arms distally and proximally. In the lower extremities his hip flexion is 4 bilaterally, but the ankles and toes and knees are normal. Sensory decreased in the left arm. Sensory equal in both legs. No ataxia. - Labs CBC & Chem 7: 10/12/21 10:29 10/12/21 10:29 Labs: Abnormal Lab Results - Last 24 Hours (Table) 10/14/21 Range/Units 07:47 AST 82 H (14-35) U/L Alkaline Phosphatase 130 H (41-126) U/L Albumin 3.6 L (3.8-4.9) g/dL Albumin/Globulin Ratio 1.15 L (1.60-3.17) g/dL Assessment and Plan Assessment: * 66-year-old male came to the hospital with alcohol intoxication and also becau se of waking up on the left side with left arm numbness. Patient also has some numbness of the left pectoral region and points his numbness mainly to the left little finger. Uncertain if central or peripheral (peripheral nerve versus plexus) related from sleeping on the left side. Patient also had transient numbness of the left foot, which raises concern about ischemic process, particularly due to presence of atrial fibrillation flutter. Patient was not on any anticoagulation. * Atrial flutter/fibrillation. * CAD * COPD * Diabetes * Hypertension * Hyperlipidemia * Chronic alcoholism * Report of cirrhosis and esophageal varices per electronic records. * History of a seizure in 2018 related to alcohol withdrawal. Plan: * Patient was seen by cardiology, started on Eliquis 5 mg twice a day for stroke prevention related to atrial fibrillation. However Eliquis not covered by the insurance. Patient switch to Xarelto per cardiology note. * No need for patient to be on aspirin from neurology point, unless indicated by cardiology. Discussed with patient's nurse to check with cardiology about continued use of aspirin. * CTA of head and neck showed no flow-limiting stenosis bilateral ICA. Normal [place] of Mg. * 2-D echo with bubble study revealed normal left ventricular ejection fraction 55-60%. Mildly increased septal wall thickness. Negative agitated saline bubble study for [id number] shunt. The left atrium is normal in size. * Fasting lipid panel with cholesterol 226, LDL 151, HDL 50 and triglycerides 123. Recommend starting statins, but his AST is 91. We will repeat hepatic panel in a.m. * Hemoglobin A1c 5.9. * Continue thiamine 100 mg daily and folic acid. * Recommended abstinence from alcohol. * Neurologically clear for discharge. Patient recommended to follow up with neurologist, if the left arm numbness persist for possible EMG testing.
[2021-10-14] MEDS ORDERED: RIVAROXABAN 20 MG TAB PO SCH (17:30)
== END 2021-10-14 13:22 | disposition home or self-care (01) ==
LOC: EC 09:34 → 6NMEDSUR 11:47
PROVIDERS: ADMIT Family Medicine; ATTEND Family Medicine
DX: R20.1 Hypoesthesia of skin (principal); I10 Essential (primary) hypertension; F10.229 Alcohol dependence with intoxication, unspecified; Y90.6 Blood alcohol level of 120-199 mg/100 ml; Z91.19 Patient's noncompliance with other medical treatment and regimen; Z91.14 Patient's other noncompliance with medication regimen; E11.9 Type 2 diabetes mellitus without complications; E78.5 Hyperlipidemia, unspecified; I25.10 Atherosclerotic heart disease of native coronary artery without angina pectoris; K70.30 Alcoholic cirrhosis of liver without ascites; R00.0 Tachycardia, unspecified; I48.0 Paroxysmal atrial fibrillation; I48.92 Unspecified atrial flutter; I85.10 Secondary esophageal varices without bleeding; J44.9 Chronic obstructive pulmonary disease, unspecified; K21.9 Gastro-esophageal reflux disease without esophagitis; H91.90 Unspecified hearing loss, unspecified ear; M41.9 Scoliosis, unspecified; F32.A Depression, unspecified; F41.9 Anxiety disorder, unspecified; Z59.7 Insufficient social insurance and welfare support; N42.9 Disorder of prostate, unspecified; Z79.01 Long term (current) use of anticoagulants; Z79.82 Long term (current) use of aspirin; Z79.899 Other long term (current) drug therapy; Z91.012 Allergy to eggs; Z91.040 Latex allergy status; Z91.018 Allergy to other foods; Z91.048 Other nonmedicinal substance allergy status; Z88.8 Allergy status to other drugs, medicaments and biological substances; Z87.01 Personal history of pneumonia (recurrent); Z86.711 Personal history of pulmonary embolism; Z86.73 Personal history of transient ischemic attack (TIA), and cerebral infarction without residual deficits; Z91.81 History of falling; Z86.14 Personal history of Methicillin resistant Staphylococcus aureus infection; Z82.3 Family history of stroke; Z82.49 Family history of ischemic heart disease and other diseases of the circulatory system; Z82.5 Family history of asthma and other chronic lower respiratory diseases; Z71.41 Alcohol abuse counseling and surveillance of alcoholic
CPT/HCPCS: 99285; 96376; 96374; 96361; 96372; 96375; 36415; 93005; 93306; 97116; 97530; 97162; 97166; 92610; 80061; 80053; 80076; 83735; 84484; 85025; 85610; 85730; 83036; 71046; 70496; 70450; 70498; G0378 ×3; G0480; J2060; J3411; J2405; Q9967; 80320

== ENCOUNTER 2021-11-13 19:00 | Inpatient (IN) | payer MEDICARE, OTHER ==
[2021-11-13] MEDS ORDERED: THIAMINE 100 MG/ML 2 ML VIAL IVP STA (19:15)
--- NOTE | 2021-11-13 19:26 | ED ---
Neuro HPI - General Chief Complaint: Chest Pain Stated Complaint: Chest Pain Time Seen by Provider: 11/13/21 19:05 Source: patient, EMS, RN notes reviewed Mode of arrival: EMS Limitations: altered mental status - History of Present Illness Is the patient presenting with stroke symptoms?: Yes Last Known Well Date: 11/12/21 (Started about 36 hours ago) Onset/Timin -: hour(s) Initial Comments: This is a 66-year-old male who presents to emergency department complaining of tingling on the left side of his body. Patient states it seems to be in the left arm and the left leg. However he states he can still feel the extremities. He denies any weakness. Patient denying any double vision. Denies visual field loss. No headache. No difficulty with speech. Patient states she is also been getting intermittent chest pains for the past several days. Patient admits to drinking 1 pint of alcohol today. Patient states that he does not drink every day but he does relapse quite often. Patient states that his friends called the ambulance because he was not looking well. Patient denying any current chest pain or abdominal pain. No dizziness or vertigo symptoms. No numbness or tingling otherwise. Patient states he is able to ambulate but feels generally weak. Patient states he has not been hydrating well other than the alcohol. Patient admits to 1 pint today. Patient has a significant history of cardiovascular disease, diabetes mellitus, alcoholism. No headache, no fever or chills, no changes in vision or hearing, no sore throat or difficulty with speech, no neck pain, no shortness of breath, no abdominal pain, no nausea or vomiting, no changes in urination or bowel movements, no extremity pain, no skin rashes or lesions. Location: left arm (Subjective paresthesia), left leg (Subjective paresthesia) - Related Data Home Medications: Home Medications Medication Instructions Recorded Confirmed Folic Acid 1 mg PO DAILY 01/07/20 11/13/21 traZODone HCL 50 mg PO HS PRN 01/07/20 11/13/21 Ergocalciferol [Vitamin D2 (1250 1,250 mcg PO Q30D 10/30/20 11/13/21 Mcg = 09715 Iu)] Naproxen 500 mg PO BID PRN 10/30/20 11/13/21 Omeprazole 20 mg PO DAILY 03/02/21 11/13/21 Thiamine [Vitamin B-1] 100 mg PO W/LUNCH 07/21/21 11/13/21 Losartan [Cozaar] 50 mg PO TID 09/23/21 11/13/21 Previous Rx's Medication Instructions Recorded Ferrous Sulfate [Iron (65 MG 325 mg PO DAILY #30 tab 06/07/19 Elemental)] Magnesium Oxide [Mag-Ox] 400 mg PO BID #60 tab 04/03/21 Atorvastatin [Lipitor] 40 mg PO DAILY 30 Days #30 tab 07/25/21 Cyclobenzaprine [Flexeril] 10 mg PO TID PRN #30 tab 07/25/21 Sucralfate [Carafate] 1 gm PO AC-TID #90 tablet 07/25/21 Metoprolol Succinate (ER) [Toprol 100 mg PO DAILY #30 09/26/21 XL] Rivaroxaban [Xarelto] 20 mg PO DAILY #30 tab 10/14/21 Allergies/Adverse Reactions: Allergies Allergy/AdvReac Type Severity Reaction Status Date / Time adhesive tape Allergy Rash/Hives Verified 11/13/21 20:41 latex Allergy Unknown Verified 11/13/21 20:41 egg AdvReac Nausea & Verified 11/13/21 20:41 Vomiting lisinopril AdvReac EYES Verified 11/13/21 20:41 BURN&ITCH/WEAKNESS tomato AdvReac Nausea & Verified 11/13/21 20:41 Vomiting & Diarrhea Review of Systems ROS Statement: Those systems with pertinent positive or pertinent negative responses have been documented in the HPI. ROS Other: All systems not noted in ROS Statement are negative. General Exam Limitations: altered mental status General appearance: alert, in no apparent distress Head exam: Present: atraumatic, normocephalic, normal inspection Eye exam: Present: normal appearance, PERRL, EOMI. Absent: scleral icterus, conjunctival injection, periorbital swelling ENT exam: Present: normal exam, mucous membranes dry, mucous membranes moist, TM's normal bilaterally, normal external ear exam Neck exam: Present: normal inspection, full ROM. Absent: tenderness, meningismus, lymphadenopathy Respiratory exam: Present: normal lung sounds bilaterally. Absent: respiratory distress, wheezes, rales, rhonchi, stridor, chest wall tenderness, accessory muscle use, decreased breath sounds, prolonged expiratory Cardiovascular Exam: Present: regular rate, normal rhythm, normal heart sounds. Absent: systolic murmur, diastolic murmur, rubs, gallop, clicks GI/Abdominal exam: Present: soft, normal bowel sounds. Absent: distended, tenderness, guarding, rebound, rigid Extremities exam: Present: normal inspection, full ROM, normal capillary refill. Absent: tenderness, pedal edema, joint swelling, calf tenderness Back exam: Present: normal inspection Neurological exam: Present: alert, oriented X3, CN II-XII intact, motor sensory deficit (Subjective dysesthesia affecting the left arm and left leg, no weakness), reflexes normal Expanded Patient oriented to: Present: person, place, time Speech: Present: fluid speech Cranial nerves: EOM's Intact: Normal, Gag Reflex: Normal, Tongue Deviation: Normal, Nystagmus: Normal, Facial Sensation: Normal, Facial Palsy with Forehead Movement: Normal, Facial Palsy without Forehead Movement: Normal Cerebellar function: Finger to Nose: Normal, Heel to Page: Normal Sensory exam: Upper Extremity Light Touch: Normal, Upper Extremity Pin Prick: Normal, Lower Extremity Light Touch: Normal, Lower Extremity Pin Prick: Normal Motor strength exam: RUE: 5, LUE: 5, RLE: 5, LLE: 5 Eye Response: (4) open spontaneously Motor Response: (6) obeys commands Verbal Response: (5) oriented [place] Total: 15 Psychiatric exam: Present: normal affect, normal mood Skin exam: Present: warm, dry, intact, normal color. Absent: rash Stroke MDM - Lab Data Result diagrams: 11/13/21 19:53 11/13/21 19:53 Lab Results 11/13/21 11/13/21 11/13/21 Range/Units 19:30 19:30 19:38 WBC (3.8-10.6) k/uL RBC (4.30-5.90) m/uL Hgb (13.0-17.5) gm/dL Hct (39.0-53.0) % MCV (80.0-100.0) fL MCH (25.0-35.0) pg MCHC (31.0-37.0) g/dL RDW (11.5-15.5) % Plt Count (150-450) k/uL MPV Neutrophils % % Lymphocytes % % Monocytes % % Eosinophils % % Basophils % % Neutrophils # (1.3-7.7) k/uL Lymphocytes # (1.0-4.8) k/uL Monocytes # (0-1.0) k/uL Eosinophils # (0-0.7) k/uL Basophils # (0-0.2) k/uL Manual Slide Review PT (9.0-12.0) sec INR (<1.2) APTT (22.0-30.0) sec Sodium (137-145) mmol/L Potassium (3.5-5.1) mmol/L Chloride (98-107) mmol/L Carbon Dioxide (22-30) mmol/L Anion Gap mmol/L BUN (9-20) mg/dL Creatinine (0.66-1.25) mg/dL Est GFR (CKD-EPI)AfAm (>60 ml/min/1.73 sqM) Est GFR (CKD-EPI)NonAf (>60 ml/min/1.73 sqM) Glucose (74-99) mg/dL POC Glucose (mg/dL) 132 H (70-110) mg/dL POC Glu Principal Bioinformatics Specialist ID Aydee Domingo Calcium (8.4-10.2) mg/dL Phosphorus (2.5-4.5) mg/dL Magnesium (1.6-2.3) mg/dL Total Bilirubin (0.2-1.3) mg/dL AST (17-59) U/L ALT (4-49) U/L Alkaline Phosphatase (38-126) U/L Ammonia (<30) umol/L Troponin I (0.000-0.034) ng/mL Total Protein (6.3-8.2) g/dL Albumin (3.5-5.0) g/dL Serum Alcohol mg/dL Coronavirus (PCR) Not Detected (Not Detectd) Influenza Type A RNA Not Detected (Not Detectd) Influenza Type B (PCR) Not Detected (Not Detectd) 11/13/21 11/13/21 11/13/21 Range/Units 19:53 19:53 19:53 WBC 3.6 L (3.8-10.6) k/uL RBC 3.47 L (4.30-5.90) m/uL Hgb 11.1 L (13.0-17.5) gm/dL Hct 33.6 L (39.0-53.0) % MCV 96.9 (80.0-100.0) fL MCH 31.9 (25.0-35.0) pg MCHC 33.0 (31.0-37.0) g/dL RDW 14.6 (11.5-15.5) % Plt Count 98 L (150-450) k/uL MPV 8.5 Neutrophils % 49 % Lymphocytes % 38 % Monocytes % 8 % Eosinophils % 2 % Basophils % 0 % Neutrophils # 1.8 (1.3-7.7) k/uL Lymphocytes # 1.4 (1.0-4.8) k/uL Monocytes # 0.3 (0-1.0) k/uL Eosinophils # 0.1 (0-0.7) k/uL Basophils # 0.0 (0-0.2) k/uL Manual Slide Review Performed PT 11.7 (9.0-12.0) sec INR 1.1 (<1.2) APTT 22.4 (22.0-30.0) sec Sodium 139 (137-145) mmol/L Potassium 3.5 (3.5-5.1) mmol/L Chloride 106 (98-107) mmol/L Carbon Dioxide 22 (22-30) mmol/L Anion Gap 11 mmol/L BUN 22 H (9-20) mg/dL Creatinine 2.87 H (0.66-1.25) mg/dL Est GFR (CKD-EPI)AfAm 25 (>60 ml/min/1.73 sqM) Est GFR (CKD-EPI)NonAf 22 (>60 ml/min/1.73 sqM) Glucose 129 H (74-99) mg/dL POC Glucose (mg/dL) (70-110) mg/dL POC Glu Principal Bioinformatics Specialist ID Calcium 8.3 L (8.4-10.2) mg/dL Phosphorus (2.5-4.5) mg/dL Magnesium 1.8 (1.6-2.3) mg/dL Total Bilirubin 0.3 (0.2-1.3) mg/dL AST 68 H (17-59) U/L ALT 27 (4-49) U/L Alkaline Phosphatase 116 (38-126) U/L Ammonia (<30) umol/L Troponin I (0.000-0.034) ng/mL Total Protein 6.3 (6.3-8.2) g/dL Albumin 3.1 L (3.5-5.0) g/dL Serum Alcohol 237 H* mg/dL Coronavirus (PCR) (Not Detectd) Influenza Type A RNA (Not Detectd) Influenza Type B (PCR) (Not Detectd) 11/13/21 11/13/21 11/13/21 Range/Units 19:53 19:53 21:16 WBC (3.8-10.6) k/uL RBC (4.30-5.90) m/uL Hgb (13.0-17.5) gm/dL Hct (39.0-53.0) % MCV (80.0-100.0) fL MCH (25.0-35.0) pg MCHC (31.0-37.0) g/dL RDW (11.5-15.5) % Plt Count (150-450) k/uL MPV Neutrophils % % Lymphocytes % % Monocytes % % Eosinophils % % Basophils % % Neutrophils # (1.3-7.7) k/uL Lymphocytes # (1.0-4.8) k/uL Monocytes # (0-1.0) k/uL Eosinophils # (0-0.7) k/uL Basophils # (0-0.2) k/uL Manual Slide Review PT (9.0-12.0) sec INR (<1.2) APTT (22.0-30.0) sec Sodium (137-145) mmol/L Potassium (3.5-5.1) mmol/L Chloride (98-107) mmol/L Carbon Dioxide (22-30) mmol/L Anion Gap mmol/L BUN (9-20) mg/dL Creatinine (0.66-1.25) mg/dL Est GFR (CKD-EPI)AfAm (>60 ml/min/1.73 sqM) Est GFR (CKD-EPI)NonAf (>60 ml/min/1.73 sqM) Glucose (74-99) mg/dL POC Glucose (mg/dL) (70-110) mg/dL POC Glu Principal Bioinformatics Specialist ID Calcium (8.4-10.2) mg/dL Phosphorus 3.7 (2.5-4.5) mg/dL Magnesium (1.6-2.3) mg/dL Total Bilirubin (0.2-1.3) mg/dL AST (17-59) U/L ALT (4-49) U/L Alkaline Phosphatase (38-126) U/L Ammonia 22 (<30) umol/L Troponin I 0.017 (0.000-0.034) ng/mL Total Protein (6.3-8.2) g/dL Albumin (3.5-5.0) g/dL Serum Alcohol mg/dL Coronavirus (PCR) (Not Detectd) Influenza Type A RNA (Not Detectd) Influenza Type B (PCR) (Not Detectd) - NIH Stroke Scale 1a. Level of Consciousness: (0) alert 1b. LOC Questions: (1) answers 1 question correctly 1c. LOC Commands: (0) performs tasks correctly 2. Best Gaze: (0) normal 3. Visual: (0) no visual loss 4. Facial Palsy: (0) normal symmetrical movement 5a. Motor Arm Left: (0) no drift 5b. Motor Arm Right: (0) no drift 6a. Motor Leg Left: (0) no drift 6b. Motor Leg Right: (0) no drift 7. Limb Ataxia: (0) absent 8. Sensory: (0) normal 9. Best Language: (0) no aphasia 10. Dysarthria: (0) normal 11. Extinction/Inattention: (0) no abnormality - Thrombolytic Inclusion/Exclusion Thrombolytic Exclusion Criteria: Symptom Onset > 4.5 Hours (Actually about 36 hours ago) - Medical Decision Making Patient presents admitting that he drank alcohol today. He denies any fall or injury. Patient is alert but is somewhat confused. He does state that his May when questioned. An 8 is essentially one as he has normal sensory status on physical examination. Although he is complaining of tingling in the left arm and the left leg. States this morning at about 36 hours. Patient also has chronic left shoulder pain. I suspect the majority the patient's symptomology is chronic. We'll order a general neurological/cardiopulmonary workup. Patient be given thiamine. We'll order an ammonia level. Patient's blood pressure is low. He does have mucous membranes. Suspect some l evel of dehydration as well. Patient's head is atraumatic however morning order a computed tomography scan as the patient is an unreliable historian and is under the influence of alcohol. Patient's chest x-ray shows evidence of bilateral infiltrates, possible viral versus bacterial etiology. I'm going to cover the patient with antibiotics. Aspiration is also possibility given the patient's alcoholism. Blood cultures were added. I also added a BNP. The case was discussed in detail with ED attending physician. Presentation, findings, treatment plan discussed in detail. [employer] Dr. Herman 11/13/21 19:29 Patient's EKG done at 7:05 PM reveals sinus rhythm with a rate of 87. Normal intervals. Moderate voltage criteria for LVH. Left axis deviation. No evidence of acute ST or T-wave changes. When compared to the previous study from 10/12/2021. She does have a change in axis which may be related to lead placement. Heart rate at that time was also 120. It is 87 today. Past Medical History Past Medical History: Atrial Fibrillation, Chest Pain / Angina, COPD, CVA/TIA, Diabetes Mellitus, GERD/Reflux, GI Bleed, Hearing Disorder / Deafness, Hyperlipidemia, Hypertension, Liver Disease, Pneumonia, Prostate Disorder, Pulmonary Embolus (PE) Additional Past Medical History / Comment(s): Pt recently hospitalized at [facility] with pneumonia. Other hx: GI bleed/ esophageal varicies banded. Other hx: Alcoholism, alcohol withdrawal DTs and possibly a seizure in 2018 r/t withdrawal, chronic alcoholic cirrhosis with portal hypertension and previous history of upper and lower GI bleeding, esophageal varices, previous history of childhood seizure which he outgrew not taking any antiepileptic medication, pulmonary embolism x 2 R lung, TIA, diverticulosis, chronic lower bilateral extremity ankle edema if he walks a lot, previous history of septicemia, cervical disc disease, chronic neck pain, chronic back pain with r sided sciatica, degenerative arthritis involving the lower back, scoliosis, tinnitus, vitamin D deficiency, iron anemia, chronic thrombocytopenia, denies MRSA, C-DIFF -2018 History of Any Multi-Drug Resistant Organisms: MRSA Date of last positivie culture/infection: 03/17/18 MDRO Source:: stomach Past Surgical History: Appendectomy, Cholecystectomy Additional Past Surgical History / Comment(s): EGDs/esophageal varicies bandings, colonoscopies. Past Anesthesia/Blood Transfusion Reactions: No Reported Reaction Additional Past Anesthesia/Blood Transfusion Reaction / Comment(s): after appendix removed sob Past Psychological History: Anxiety, Depression Smoking Status: Never smoker Past Alcohol Use History: Occasional Past Drug Use History: None Reported - Past Family History Mother Family Medical History: COPD, CVA/TIA, Dementia Additional Family Medical History / Comment(s): from a stroke Father Family Medical History: Pneumonia Additional Family Medical History / Comment(s): Father of pneumonia when he was close to 80 yrs old. Course Vital Signs 11/13/21 11/13/21 11/13/21 19:02 19:30 19:40 Temperature 98.2 F Pulse Rate 85 85 84 Pulse Rate [ 78 Box Spinner ] Respiratory 16 16 Rate Blood Pressure 95/48 103/83 65/45 O2 Sat by Pulse 98 95 Oximetry 11/13/21 11/13/21 11/13/21 19:50 20:12 20:45 Temperature Pulse Rate 86 86 86 Pulse Rate [ Box Spinner ] Respiratory Rate Blood Pressure 82/61 91/61 76/49 O2 Sat by Pulse 97 Oximetry 11/13/21 11/13/21 11/13/21 21:00 21:45 22:00 Temperature Pulse Rate 75 78 80 Pulse Rate [ Box Spinner ] Respiratory Rate Blood Pressure 100/65 94/58 92/59 O2 Sat by Pulse Oximetry 11/13/21 23:00 Temperature Pulse Rate 79 Pulse Rate [ Box Spinner ] Respiratory Rate Blood Pressure 101/65 O2 Sat by Pulse Oximetry - Reevaluation(s) Reevaluation #1: 11/13/21 19:55 Patient became diaphoretic and hypotensive. Patient now stating he may have inadvertently doubled up on clonidine. Was also seen and assessed by the ED attending physician. Well order another liter fluid bolus. Reevaluation #2: 11/13/21 21:24 Patient has evidence of acute kidney injury with a creatinine of 2.87. BUN 22. Calcium low at 8.3. Platelet count also low at 98,000 patient was Reevaluated, patient now normotensive. I did add on renal ultrasound, phosphorus, lactic acid, urine creatinine, urine sodium. - Consultations Consultation #1: Case discussed in detail with Briseida from [facility] hospitalist group. Patient will be admitted under their service with consultation to nephrology Critical Care Time Critical Care Time: Yes (40) Critical Care Time: Patient has multiple diagnoses. Had to reevaluate the patient several times. Patient was hypotensive at certain points out the course of the ER stay. Acute renal failure, pneumonia, Multiple re-evaluations. Response to therapy. Disposition Clinical Impression: Acute kidney injury, Alcohol intoxication, Dehydration, Paresthesia, Pneumonia Narrative: Pneumonia of undetermined etiology Disposition: ADMITTED IP TO THIS HOSP Condition: Poor Is patient prescribed a controlled substance at d/c from ED?: No Decision to Admit Reason: Admit from EC
[2021-11-13] MEDS: SODIUM CHLORIDE 0.9% 1,000 ML IV STA ×2 (19:35→19:58)
[2021-11-13] MEDS ORDERED: SODIUM CHLORIDE 0.9% 1,000 ML IV ONE (19:56)
[2021-11-13 19:58] LABS: Glucose,Whole Blood 132 mg/dL (70-110)
[2021-11-13 20:07] LABS: Albumin 3.1 g/dL (3.5-5.0); Calcium 8.3 mg/dL (8.4-10.2); Magnesium 1.8 mg/dL (1.6-2.3); Potassium 3.5 mmol/L (3.5-5.1); Total Bilirubin 0.3 mg/dL (0.2-1.3); Total Protein 6.3 g/dL (6.3-8.2)
[2021-11-13 20:08] LABS: INR 1.1 (<1.2); Partial Thromboplastin Time 22.4 sec (22.0-30.0); Prothrombin Time 11.7 sec (9.0-12.0)
[2021-11-13 20:14] LABS: Basophils % (A) 0 %; Eosinophils # (A) 0.1 k/uL (0-0.7); Eosinophils % (A) 2 %; HCT 33.6 % (39.0-53.0); HGB 11.1 gm/dL (13.0-17.5); Lymphocytes # (A) 1.4 k/uL (1.0-4.8); Lymphocytes % (A) 38 %; MCH 31.9 pg (25.0-35.0); MCV 96.9 fL (80.0-100.0); Mean Platelet Volume 8.5; Monocytes # (A) 0.3 k/uL (0-1.0); Monocytes % (A) 8 %; Neutrophils # (A) 1.8 k/uL (1.3-7.7); Neutrophils % (A) 49 %; RBC 3.47 m/uL (4.30-5.90); RDW 14.6 % (11.5-15.5); WBC 3.6 k/uL (3.8-10.6)
[2021-11-13 21:02] LABS: Platelet Count 98 k/uL (150-450)
--- NOTE | 2021-11-13 21:39 | XR ---
EXAMINATION TYPE: XR chest 1V portable DATE OF EXAM: 11/13/2021 8:44 PM COMPARISON: Chest radiographs from 10/12/2021 TECHNIQUE: XR chest 1V portable Portable AP radiograph of the chest.. CLINICAL INDICATION:Male, 66 years old with history of altered mental status; FINDINGS: Lungs/Pleura: Airspace opacities projecting in the right middle lobe and over the heart. No evidence of pleural effusion or pneumothorax. Pulmonary vascularity: Unremarkable. Heart/mediastinum: Cardiomediastinal silhouette is unremarkable. Musculoskeletal: No acute osseous pathology. IMPRESSION: Bilateral lower lobe airspace opacities correlate for pneumonia and/or aspiration.
--- NOTE | 2021-11-13 21:45 | CT ---
EXAMINATION TYPE: CT brain wo con CT DLP: 1080.4 mGycm, Automated exposure control for dose reduction was used. DATE OF EXAM: 11/13/2021 9:39 PM COMPARISON: CT brain 10/12/2021. CLINICAL INDICATION:Male, 66 years old with history of Neuro deficit, acute, stroke suspected, neuro deficit TECHNIQUE: Brain: Multiple axial CT images of the brain were obtained without IV contrast. FINDINGS: Brain: Extra-axial spaces: No abnormal extra-axial fluid collections. Ventricular system: Within normal limits Cerebral parenchyma: No acute intraparenchymal hemorrhage or mass effect. The rios-white junction is well differentiated. Cerebellum: Unremarkable. Mass effect: No evidence of midline shift. Intracranial vasculature: unremarkable Soft tissues: Normal. Calvarium/osseous structures: No depressed skull fracture. Paranasal sinuses and mastoid air cells: Mild scattered paranasal sinus disease. Visualized orbits: Orbital contents are intact. IMPRESSION: No acute intracranial process.
[2021-11-13] MEDS ORDERED: NALOXONE 0.4 MG/ML 1 ML VIAL IV PRN (22:02)
[2021-11-13] MEDS ORDERED: THIAMINE 100 MG/ML 2 ML VIAL IM STA (22:06)
[2021-11-13] MEDS ORDERED: DIAZEPAM 5 MG/ML 2 ML INJ IVP PRN (22:07)
[2021-11-13] MEDS ORDERED: traZODone HCL 50 MG TAB PO PRN (22:08)
--- NOTE | 2021-11-13 22:41 | US ---
EXAMINATION TYPE: US renals and bladder DATE OF EXAM: 11/13/2021 COMPARISON: CT 09/23/21 CLINICAL HISTORY: Acute kidney injury. HORTENCIA EXAM MEASUREMENTS: Right Kidney: 10.8 x 5.2 x 4.6 cm Left Kidney: 9.6 x 4.9 x 4.8 cm Right Kidney: Possible dilated hydronephrosis Left Kidney: No hydronephrosis or masses seen Bladder: wnl Bilateral Jets seen: No IMPRESSION: Kidneys have normal size. No evidence of a renal mass. No definite evidence for renal obstruction. No bladder mass. Ureteral jets were not evident during the exam.
[2021-11-13] MEDS: SODIUM CHLORIDE 0.9% 1,000 ML IV SCH (23:16)
[2021-11-13] MEDS: PANTOPRAZOLE 40 MG/10 ML VIAL IV SCH (23:16)
[2021-11-14] MEDS: THIAMINE 100 MG TAB PO SCH ×3 (00:28→16:50)
[2021-11-14] MEDS ORDERED: ALBUTEROL NEBULIZED 2.5 MG/3 ML INHALATION PRN (00:56)
[2021-11-14] MEDS ORDERED: PNEUMONIA PROTOCOL UTILIZED 1 EACH MISC PO PRN (00:56)
[2021-11-14] MEDS ORDERED: AZITHROMYCIN 500 MG in SODIUM CHLORIDE 0.9% 250 ML IVPB STA (00:56)
[2021-11-14] MEDS ORDERED: cefTRIAXone IN SWFI 1,000 MG/10 ML SYRINGE IVP STA ×2 (01:01→01:02)
[2021-11-14 05:35] LABS: Appearance,Urine Clear (Clear); Bilirubin,Urine Negative (Negative); Blood,Urine Negative (Negative); Color,Urine Light Yellow; Glucose,Urine (UA) Negative (Negative); Ketones,Urine Negative (Negative); Leukocyte Esterase,Urine Negative (Negative); Nitrite,Urine Negative (Negative); PH, Urine 5.5 (5.0-8.0); Protein,Urine Negative (Negative); Specific Gravity,Urine 1.009 (1.001-1.035); Urobilinogen,Urine <2.0 mg/dL (<2.0)
[2021-11-14 05:47] LABS: Amphetamine Screen,Urine Not Detected (NotDetected); Barbiturate Screen,Urine Not Detected (NotDetected); Benzodiazepines Screen,Urine Not Detected (NotDetected); Cocaine Screen,Urine Not Detected (NotDetected); Methadone Screen, Urine Not Detected (NotDetected); Opiate Screen,Urine Not Detected (NotDetected); Oxycodone Screen, Urine Not Detected (NotDetected); Phencyclidine Screen,Urine Not Detected (NotDetected); Tricyclic Antidepressant,Urine Not Detected (NotDetected); Urn Cannabinoid Scrn Not Detected (NotDetected)
[2021-11-14] MEDS: ONDANSETRON 4 MG/2 ML VIAL IVP PRN ×2 (05:52→21:01)
[2021-11-14 05:57] LABS: Basophils % (A) 1 %; Eosinophils # (A) 0.1 k/uL (0-0.7); Eosinophils % (A) 2 %; HCT 33.3 % (39.0-53.0); HGB 10.9 gm/dL (13.0-17.5); Lymphocytes # (A) 0.8 k/uL (1.0-4.8); Lymphocytes % (A) 33 %; MCH 32.1 pg (25.0-35.0); MCHC 32.6 g/dL (31.0-37.0); MCV 98.4 fL (80.0-100.0); Mean Platelet Volume 8.8; Monocytes # (A) 0.2 k/uL (0-1.0); Monocytes % (A) 6 %; Neutrophils # (A) 1.4 k/uL (1.3-7.7); Neutrophils % (A) 57 %; RBC 3.39 m/uL (4.30-5.90); RDW 14.7 % (11.5-15.5); WBC 2.5 k/uL (3.8-10.6)
[2021-11-14 05:59] LABS: Platelet Count 84 k/uL (150-450)
[2021-11-14 06:04] LABS: Calcium 7.8 mg/dL (8.4-10.2); Magnesium 1.4 mg/dL (1.6-2.3); Phosphorus 3.9 mg/dL (2.5-4.5); Potassium 3.9 mmol/L (3.5-5.1); Total Bilirubin 0.3 mg/dL (0.2-1.3); Total Protein 6.1 g/dL (6.3-8.2)
[2021-11-14] MEDS ORDERED: LORazepam 1 MG TAB PO PRN ×2 (07:36)
[2021-11-14] MEDS ORDERED: LORazepam 2 MG/ML INJ IV STA (07:36)
[2021-11-14 08:26] LABS: Glucose,Whole Blood 103 mg/dL (70-110)
[2021-11-14] MEDS: INSULIN ASPART (NovoLOG) 100 UNIT/ML VIAL SQ SCH ×4 (08:45→21:10)
[2021-11-14] MEDS: RIVAROXABAN 20 MG TAB PO SCH (08:48)
[2021-11-14] MEDS: MAGNESIUM OXIDE 400 MG TAB PO SCH ×2 (08:48→20:45)
[2021-11-14] MEDS: MULTIVITAMINS, THERA 1 EACH TAB PO SCH (08:48)
[2021-11-14] MEDS: FOLIC ACID 1 MG TAB PO SCH (08:48)
[2021-11-14] MEDS: METOPROLOL SUCCINATE (ER) 100 MG TAB.ER.24H PO SCH (08:48)
[2021-11-14] MEDS: SODIUM CHLORIDE 0.9% 1,000 ML IV SCH ×2 (08:49→12:25)
[2021-11-14] MEDS: SUCRALFATE 1 GM TAB PO SCH ×3 (08:49→16:56)
--- NOTE | 2021-11-14 09:18 | P.NPCON ---
History of Present Illness - Reason for Consult acute renal failure - History of Present Illness Patient is a 66-year-old male with history of chronic A. fib, COPD, coronary artery disease, type 2 diabetes, gastroesophageal reflux disease, hypertension. Patient is admitted to the hospital with complaints of increased weakness and decreased oral intake. He also had tingling on the left side of his body. No associated headaches fever chills nausea or vomiting. Patient admitted to increased intake of alcohol and he does have a history of EtOH abuse. Serum creatinine was 2.8 on 11/13/2021 and it is down to 1.9 today. Blood pressure was low with systolic as low as 65 mmHg. Currently maintained on IV fluids Patient admits to taking Naprosyn daily for pain prior to admission Review of Systems As per HPI Past Medical History Past Medical History: Atrial Fibrillation, Chest Pain / Angina, COPD, CVA/TIA, Diabetes Mellitus, GERD/Reflux, GI Bleed, Hearing Disorder / Deafness, Hyperlipidemia, Hypertension, Liver Disease, Pneumonia, Prostate Disorder, Pulmonary Embolus (PE) Additional Past Medical History / Comment(s): Pt recently hospitalized at [facility] with pneumonia. Other hx: GI bleed/ esophageal varicies banded. Other hx: Alcoholism, alcohol withdrawal DTs and possibly a seizure in 2018 r/t wit hdrawal, chronic alcoholic cirrhosis with portal hypertension and previous history of upper and lower GI bleeding, esophageal varices, previous history of childhood seizure which he outgrew not taking any antiepileptic medication, pulmonary embolism x 2 R lung, TIA, diverticulosis, chronic lower bilateral extremity ankle edema if he walks a lot, previous history of septicemia, cervical disc disease, chronic neck pain, chronic back pain with r sided sciatica, degenerative arthritis involving the lower back, scoliosis, tinnitus, vitamin D deficiency, iron anemia, chronic thrombocytopenia, denies MRSA, C-DIFF -2018 History of Any Multi-Drug Resistant Organisms: MRSA Date of last positivie culture/infection: 03/17/18 MDRO Source:: stomach Past Surgical History: Appendectomy, Cholecystectomy Additional Past Surgical History / Comment(s): EGDs/esophageal varicies band ings, colonoscopies. Past Anesthesia/Blood Transfusion Reactions: No Reported Reaction Additional Past Anesthesia/Blood Transfusion Reaction / Comment(s): after appendix removed sob Past Psychological History: Anxiety, Depression Smoking Status: Never smoker Past Alcohol Use History: Occasional Past Drug Use History: None Reported - Past Family History Mother Family Medical History: COPD, CVA/TIA, Dementia Additional Family Medical History / Comment(s): from a stroke Father Family Medical History: Pneumonia Additional Family Medical History / Comment(s): Father of pneumonia when he was close to 80 yrs old. Medications and Allergies Home Medications Medication Instructions Recorded Confirmed Type Ferrous Sulfate [Iron (65 MG 325 mg PO DAILY #30 tab 06/07/19 11/13/21 Rx Elemental)] Folic Acid 1 mg PO DAILY 01/07/20 11/13/21 History traZODone HCL 50 mg PO HS PRN 01/07/20 11/13/21 History Ergocalciferol [Vitamin D2 (1250 1,250 mcg PO Q30D 10/30/20 11/13/21 History Mcg = 09708 Iu)] Naproxen 500 mg PO BID PRN 10/30/20 11/13/21 History Omeprazole 20 mg PO DAILY 03/02/21 11/13/21 History Magnesium Oxide [Mag-Ox] 400 mg PO BID #60 tab 04/03/21 11/13/21 Rx Thiamine [Vitamin B-1] 100 mg PO W/LUNCH 07/21/21 11/13/21 History Atorvastatin [Lipitor] 40 mg PO DAILY 30 Days #30 tab 07/25/21 11/13/21 Rx Cyclobenzaprine [Flexeril] 10 mg PO TID PRN #30 tab 07/25/21 11/13/21 Rx Sucralfate [Carafate] 1 gm PO AC-TID #90 tablet 07/25/21 11/13/21 Rx Losartan [Cozaar] 50 mg PO TID 09/23/21 11/13/21 History Metoprolol Succinate (ER) [Toprol 100 mg PO DAILY #30 09/26/21 11/13/21 Rx XL] Rivaroxaban [Xarelto] 20 mg PO DAILY #30 tab 10/14/21 11/13/21 Rx Allergies Allergy/AdvReac Type Severity Reaction Status Date / Time adhesive tape Allergy Rash/Hives Verified 11/13/21 20:41 latex Allergy Unknown Verified 11/13/21 20:41 egg AdvReac Nausea & Verified 11/13/21 20:41 Vomiting lisinopril AdvReac EYES Verified 11/13/21 20:41 BURN&ITCH/WEAKNESS tomato AdvReac Nausea & Verified 11/13/21 20:41 Vomiting & Diarrhea Physical Exam Vitals: Vital Signs Temp Pulse Pulse Resp BP BP Pulse Ox 11/14/21 08:40 98.1 F 101 H 15 148/83 98 11/14/21 07:18 92 18 11/14/21 07:10 88 18 11/14/21 05:55 85 20 128/85 97 11/14/21 03:00 70 117/76 11/14/21 01:00 71 114/71 11/13/21 23:00 79 101/65 11/13/21 22:00 80 92/59 11/13/21 21:45 78 94/58 11/13/21 21:00 75 100/65 11/13/21 20:45 86 76/49 11/13/21 20:12 86 91/61 97 11/13/21 19:50 86 82/61 11/13/21 19:40 84 78 65/45 11/13/21 19:30 85 16 103/83 95 11/13/21 19:02 98.2 F 85 16 95/48 98 Intake and Output 11/13/21 11/14/21 11/14/21 22:59 06:59 14:59 Other: Weight 95.254 kg Awake, comfortable not in any acute distress Alert oriented 3 Examination of the heart S1 and S2 Examination lungs bilateral breath sounds are heard Abdomen is soft nontender Examination of the lower extremities shows no evidence of edema EXHIBIT DISPLAY REPRESENTATIVE exam grossly intact Results - Lab Results Most recent lab results Calcium 7.8 mg/dL (8.4-10.2) L 11/14/21 05:19 Phosphorus 3.9 mg/dL (2.5-4.5) 11/14/21 05:19 Magnesium 1.4 mg/dL (1.6-2.3) L 11/14/21 05:19 11/14/21 05:20 11/14/21 05:19 Assessment and Plan Assessment: 1. Acute kidney injury prerenal and associated with use of NSAIDs prior to admission in the setting of hypotension and use of angiotensin receptor blockers. Renal function is improving. UA is completely benign. Patient is maintained on IV fluids. 2. Hypovolemia currently maintained on IV fluids 3. History of hypertension, blood pressure currently low 4. Chronic A. fib maintained on his Adderall toe and metoprolol 5. History of EtOH abuse Plan: Continue IV fluids Continue to hold off on Cozaar Patient is advised to avoid use of naproxen Repeat labs in a.m. Check ultrasound of the kidneys Thank you for the consultation. We'll continue to follow the patient with you during his hospitalization
[2021-11-14] MEDS: PANTOPRAZOLE 40 MG/10 ML VIAL IV SCH (09:50)
[2021-11-14] MEDS ORDERED: Magnesium Replacement Protocol 1 EACH MISC MISCELLANE PRN (09:53)
[2021-11-14] MEDS ORDERED: Potassium Replacement Protocol 1 EACH MISC MISCELLANE PRN (09:53)
--- NOTE | 2021-11-14 09:56 | P.HPIM ---
History of Present Illness This is a pleasant 66 years old male with past medical history of Atrial Fibrillation, on Xarelto, COPD, CVA/TIA, Diabetes Mellitus, GERD/Reflux, Hearing Disorder / Deafness, Hyperlipidemia, Hypertension, Liver Disease,Pulmonary Em bolus, Alcoholism, alcohol withdrawal DTs and possibly a seizure in 2018 r/t withdrawal, chronic alcoholic cirrhosis with portal hypertension and previous history of upper and lower GI bleeding, esophageal varices, chronic lower bilateral extremity ankle edema if he walks a lot, previous history of septicemia, cervical disc disease, chronic neck pain, chronic back pain with r sided sciatica, degenerative arthritis involving the lower back, scoliosis, tinnitus, vitamin D deficiency, iron anemia, chronic thrombocytopenia, Anxiety, Depression Patient presents because of dyspnea of one week duration which became more worse over yesterday associated with nausea but no vomiting. He has also dry cough. He reports chest pain about 10/10 and described a testosterone of bricks sitting on my chest, pain is nonradiating but the front and middle of the chest. He feels anxious and with trauma mostly from alcohol withdrawal His been constipated for 2 days. He denies any dysuria or urgency. He says when he tried to stand up he got dizziness. He denies smoking or illicit drugs but he states he drinks 1 point of liquor only one day before coming to the hospital. Also he states that he has not been eating well for 1 or 2 days Patient is hemodynamically stable and he is afebrile. Labs showing pancytopenia with WBC 2.5, hemoglobin 10.9, platelet count 84. INR is 1.1. BNP showing elevated creatinine 2.8 and 1.9, baseline 0.8 Magnesium low this morning at 1.4. Liver enzymes and bilirubin not significantly elevated. Lipase normal at 71. Urine analysis is negative and urine tox screen is negative. Serum alcohol was elevated to 37 upon admission. Influenza and Covid viruses are undetected Renal ultrasound: No masses or hydronephrosis CT of the head no acute intracranial process. Chest x-ray: Bilateral lower lobe airspace opacity correlates for pneumonia and/or aspiration EKG showed normal sinus rhythm at [address]-T changes In the emergency room patient received normal saline and ceftriaxone and Zithromax Review of Systems Review of systems CONSTITUTIONAL: No fever, no malaise, no fatigue. HEENT: No recent visual problems or hearing problems. Denied any sore throat. CARDIOVASCULAR: No orthopnea, PND, no palpitations, no syncope. PULMONARY: No chest wall tenderness, no hemoptysis. GASTROINTESTINAL: No diarrhea, no nausea, no vomiting, no abdominal pain. Normoactive bowel sounds. NEUROLOGICAL: No headaches, no weakness, no numbness. HEMATOLOGICAL: Denies any bleeding or petechiae. GENITOURINARY: Denies any burning micturition, frequency, or urgency. MUSCULOSKELETAL/RHEUMATOLOGICAL: Denies any joint pain, swelling, or any muscle pain. ENDOCRINE: Denies any polyuria or polydipsia. Past Medical History Past Medical History: Atrial Fibrillation, Chest Pain / Angina, COPD, CVA/TIA, Diabetes Mellitus, GERD/Reflux, GI Bleed, Hearing Disorder / Deafness, Hyperlipidemia, Hypertension, Liver Disease, Pneumonia, Prostate Disorder, Pulmonary Embolus (PE) Additional Past Medical History / Comment(s): Pt recently hospitalized at [facility] with pneumonia. Other hx: GI bleed/ esophageal varicies banded. Other hx: Alcoholism, alcohol withdrawal DTs and possibly a seizure in 2018 r/t withdrawal, chronic alcoholic cirrhosis with portal hypertension and previous history of upper and lower GI bleeding, esophageal varices, previous history of childhood seizure which he outgrew not taking any antiepileptic medication, pulmonary embolism x 2 R lung, TIA, diverticulosis, chronic lower bilateral extremity ankle edema if he walks a lot, previous history of septicemia, cervical disc disease, chronic neck pain, chronic back pain with r sided sciatica, degenerative arthritis involving the lower back, scoliosis, tinnitus, vitamin D deficiency, iron anemia, chronic thrombocytopenia, denies MRSA, C-DIFF -2018 History of Any Multi-Drug Resistant Organisms: MRSA Date of last positivie culture/infection: 03/17/18 MDRO Source:: stomach Past Surgical History: Appendectomy, Cholecystectomy Additional Past Surgical History / Comment(s): EGDs/esophageal varicies bandings, colonoscopies. Past Anesthesia/Blood Transfusion Reactions: No Reported Reaction Additional Past Anesthesia/Blood Transfusion Reaction / Comment(s): after append ix removed sob Past Psychological History: Anxiety, Depression Smoking Status: Never smoker Past Alcohol Use History: Occasional Past Drug Use History: None Reported - Past Family History Mother Family Medical History: COPD, CVA/TIA, Dementia Additional Family Medical History / Comment(s): from a stroke Father Family Medical History: Pneumonia Additional Family Medical History / Comment(s): Father of pneumonia when he was close to 80 yrs old. Medications and Allergies Home Medications Medication Instructions Recorded Confirmed Type Ferrous Sulfate [Iron (65 MG 325 mg PO DAILY #30 tab 06/07/19 11/13/21 Rx Elemental)] Folic Acid 1 mg PO DAILY 01/07/20 11/13/21 History traZODone HCL 50 mg PO HS PRN 01/07/20 11/13/21 History Ergocalciferol [Vitamin D2 (1250 1,250 mcg PO Q30D 10/30/20 11/13/21 History Mcg = 41753 Iu)] Naproxen 500 mg PO BID PRN 10/30/20 11/13/21 History Omeprazole 20 mg PO DAILY 03/02/21 11/13/21 History Magnesium Oxide [Mag-Ox] 400 mg PO BID #60 tab 04/03/21 11/13/21 Rx Thiamine [Vitamin B-1] 100 mg PO W/LUNCH 07/21/21 11/13/21 History Atorvastatin [Lipitor] 40 mg PO DAILY 30 Days #30 tab 07/25/21 11/13/21 Rx Cyclobenzaprine [Flexeril] 10 mg PO TID PRN #30 tab 07/25/21 11/13/21 Rx Sucralfate [Carafate] 1 gm PO AC-TID #90 tablet 07/25/21 11/13/21 Rx Losartan [Cozaar] 50 mg PO TID 09/23/21 11/13/21 History Metoprolol Succinate (ER) [Toprol 100 mg PO DAILY #30 09/26/21 11/13/21 Rx XL] Rivaroxaban [Xarelto] 20 mg PO DAILY #30 tab 10/14/21 11/13/21 Rx Allergies Allergy/AdvReac Type Severity Reaction Status Date / Time adhesive tape Allergy Rash/Hives Verified 11/13/21 20:41 latex Allergy Unknown Verified 11/13/21 20:41 egg AdvReac Nausea & Verified 11/13/21 20:41 Vomiting lisinopril AdvReac EYES Verified 11/13/21 20:41 BURN&ITCH/WEAKNESS tomato AdvReac Nausea & Verified 11/13/21 20:41 Vomiting & Diarrhea Physical Exam Vitals: Vital Signs Temp Pulse Pulse Resp BP BP Pulse Ox 11/14/21 08:40 98.1 F 101 H 15 148/83 98 11/14/21 07:18 92 18 11/14/21 07:10 88 18 11/14/21 05:55 85 20 128/85 97 11/14/21 03:00 70 117/76 11/14/21 01:00 71 114/71 11/13/21 23:00 79 101/65 11/13/21 22:00 80 92/59 11/13/21 21:45 78 94/58 11/13/21 21:00 75 100/65 11/13/21 20:45 86 76/49 11/13/21 20:12 86 91/61 97 11/13/21 19:50 86 82/61 11/13/21 19:40 84 78 65/45 11/13/21 19:30 85 16 103/83 95 11/13/21 19:02 98.2 F 85 16 95/48 98 Intake and Output 11/13/21 11/14/21 11/14/21 22:59 06:59 14:59 Other: Weight 95.254 kg GENERAL: The patient is alert and oriented x3, not in any acute distress. Well developed, well nourished. HEENT: Pupils are round and equally reacting to light. EOMI. No scleral icterus. No conjunctival pallor. Normocephalic, atraumatic. No pharyngeal erythema. No thyromegaly. CARDIOVASCULAR: S1 and S2 present. No murmurs, rubs, or gallops. -PULMONARY: Chest is clear to auscultation, no wheezing. Bilateral basal crepitation, mild ABDOMEN: Soft, nontender, nondistended, normoactive bowel sounds. No palpable organomegaly. MUSCULOSKELETAL: No joint swelling or deformity. -EXTREMITIES: No cyanosis, clubbing,. Mild pitting like edema NEUROLOGICAL: Gross neurological examination did not reveal any focal deficits. SKIN: No rashes. no petechiae. Results CBC & Chem 7: 11/14/21 05:20 11/14/21 05:19 Labs: Abnormal Lab Results - Last 24 Hours (Table) 11/13/21 11/13/21 11/13/21 Range/Units 19:38 19:53 19:53 WBC 3.6 L (3.8-10.6) k/uL RBC 3.47 L (4.30-5.90) m/uL Hgb 11.1 L (13.0-17.5) gm/dL Hct 33.6 L (39.0-53.0) % Plt Count 98 L (150-450) k/uL Lymphocytes # (1.0-4.8) k/uL Chloride (98-107) mmol/L Carbon Dioxide (22-30) mmol/L BUN 22 H (9-20) mg/dL Creatinine 2.87 H (0.66-1.25) mg/dL Glucose 129 H (74-99) mg/dL POC Glucose (mg/dL) 132 H (70-110) mg/dL Calcium 8.3 L (8.4-10.2) mg/dL Magnesium (1.6-2.3) mg/dL AST 68 H (17-59) U/L Total Protein (6.3-8.2) g/dL Albumin 3.1 L (3.5-5.0) g/dL Serum Alcohol 237 H* mg/dL 11/14/21 11/14/21 Range/Units 05:19 05:20 WBC 2.5 L (3.8-10.6) k/uL RBC 3.39 L (4.30-5.90) m/uL Hgb 10.9 L (13.0-17.5) gm/dL Hct 33.3 L (39.0-53.0) % Plt Count 84 L (150-450) k/uL Lymphocytes # 0.8 L (1.0-4.8) k/uL Chloride 112 H (98-107) mmol/L Carbon Dioxide 20 L (22-30) mmol/L BUN (9-20) mg/dL Creatinine 1.94 H (0.66-1.25) mg/dL Glucose 104 H (74-99) mg/dL POC Glucose (mg/dL) (70-110) mg/dL Calcium 7.8 L (8.4-10.2) mg/dL Magnesium 1.4 L (1.6-2.3) mg/dL AST 60 H (17-59) U/L Total Protein 6.1 L (6.3-8.2) g/dL Albumin 3.0 L (3.5-5.0) g/dL Serum Alcohol mg/dL Assessment and Plan Assessment: Alcohol intoxication and abuse at-risk of withdrawal Suspected bilateral lower lobe airspace opacity correlates for pneumonia and/or aspiration, however patient is afebrile and no leukocytosis Acute kidney injury, improvement Altered mental status on admission most likely metabolic toxic encephalopathy, partly is due to alcohol intoxication Pancytopenia related to myelosuppression from alcoholism Paroxysmal atrial fibrillation on Xarelto History of PE on Xarelto History of CVA/TIA COPD, no acute exacerbation Hearing difficulty in deafness Alcoholic liver disease and cirrhosis Esophageal varices and GI bleed Chronic lower extremity edema Chronic back pain and neck pain with right sided sciatica History of tinnitus History of anemia and thrombocytopenia History of depression and anxiety Plan: This is a pleasant 66 years old male who presents with chest pain and acute kidney injury and pulmonary infiltrates or opacities suspicious for bilateral pneumonia check proCalcitonin Start the patient empirically on Zosyn to cover aspiration pneumonia and gram- negative microorganisms Check swallow evaluation Continue with IV fluids Although most likely patient's symptoms related to his pneumonia and the suspicion of cardiac disease is low however given the characteristics of his pain when going to ask for a stock controller evaluation. Check vitamin B12 and folate Check TSH and hemoglobin A1c Continue with CIWA protocol and thiamine Labs and medication were reviewed.. Continue same treatment. Continue with symptomatic treatment. Resume home medication. Monitor lytes and vitals. DVT and GI prophylaxis. Further recommendations depends on the clinical course of the patient DVT prophylaxis: Xarelto GI Prophylaxis: Ppi PT/OT: Pending Prognosis is guarded
[2021-11-14 11:56] LABS: Glucose,Whole Blood 100 mg/dL (70-110)
[2021-11-14] MEDS: MAGNESIUM SULFATE-D5W PMX 1 GM in DEXTROSE/WATER 1 100ML.BAG IVPB SCH ×2 (12:25→14:47)
--- NOTE | 2021-11-14 13:32 | P.CRDCN ---
History of Present Illness History of present illness: HISTORY OF PRESENTING ILLNESS This is a pleasant 66-year-old male past medical history significant for paroxysmal atrial fibrillation on Xarelto, alcohol abuse, hypertension, type 2 diabetes, hyperlipidemia, COPD, TIA. 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 We have asked to see patient in consultation for chest pain. Patient presents emergency department with complaints of worsening shortness of breath, fever, sweats/night sweats. Chest xray revealed bilateral lobe airspace opacities correlate for pneumonia. Also found to be in acute kidney injury. He endorses chest discomfort with deep breathing and coughing. He denies any radiating chest pain. Nonexertional. No associated nausea, lightheadedness, dizziness, palpitations, syncope, diaphoresis. He drinks alcohol daily, drank 1 pint of alcohol yesterday. He denies any tobacco use. Patient also has been taking naproxen daily for pain prior to admission. He was hypotensive on admission BP 65/45. DIAGNOSTICS EKG reveals sinus rhythm, heart rate 87, nonspecific T-wave abnormality. No acute ischemia noted. Brain CT revealed no acute intracranial process Echocardiogram 10/14/2021 revealed 5560 percent, mild LVH. Negative bubble study for shunts Lexiscan stress test 03/2021 revealed no evidence of reversible ischemia Telemetry tracings indicate sinus mechanism Laboratory reviewed, WBC 2.5, hemoglobin 10.9, platelets 84, sodium 140, potassium 3.9, BUN 18, serum creatinine 1.9, magnesium 1.4, serum alcohol 237 Current home medications include Xarelto 20 mg daily, metoprolol succinate 100 mg daily, losartan 50 mg 3 times a day, atorvastatin 40 mg daily REVIEW OF SYSTEMS At the time of my exam: CONSTITUTIONAL: + fever + chills. CARDIOVASCULAR: + chest pain, +shortness of breath, Denies orthopnea, PND or palpitations. RESPIRATORY: +cough. GASTROINTESTINAL: Denies abdominal pain, diarrhea, constipation, nausea or vomiting. MUSCULOSKELETAL: Denies myalgias. NEUROLOGIC: Denies numbness, tingling, headache or weakness. ENDOCRINE: Denies fatigue, weight change, polydipsia or polyurina. GENITOURINARY: Denies burning, hematuria or urgency with micturation. HEMATOLOGIC: Denies history of anemia or bleeding. PHYSICAL EXAMINATION Blood pressure 140/83, heart rate 92, afebrile, oxygen saturation 98% on 4 L nasal cannula CONSTITUTIONAL: No apparent distress. HEENT: Head is normocephalic. Pupils are equal, round. Sclerae anicteric. Mucous membranes of the mouth are moist. No JVD. No carotid bruit. CHEST EXAMINATION: Lungs are clear to auscultation. No chest wall tenderness is noted on palpation or with deep breathing. HEART EXAMINATION: Regular rate and rhythm. S1, S2 heard. No murmurs, gallops or rub. ABDOMEN: Soft, nontender. Positive bowel sounds. EXTREMITIES: 2+ peripheral pulses, no lower extremity edema and no calf tenderness. SKIN:warm, dry NEUROLOGIC EXAMINATION: Patient is awake, alert and oriented x3. ASSESSMENT Chest discomfort, pleuritic in nature. Acute coronary syndrome ruled out Pneumonia Symptoms of fever, chills, cough, shortness of breath Hypotension Acute Kidney injury, improving Paroxysmal atrial fibrillation on Xarelto Alcohol abuse Alcohol withdrawal History of Hypertension Type 2 diabetes Hyperlipidemia History of COPD History of TIA PLAN An acute coronary event has been ruled out with no EKG evidence of ischemia and negative cardiac enzymes. Lexiscan stress test 03/2021 negative for reversible ischemia. Recent echocardiogram 10/14/2021 reviewed no acute findings. Normal LV function Continue home Xarelto anticoagulation Losartan on hold secondary to acute kidney injury Pneumonia treatment per primary Nephrology following for acute kidney injury No further inpatient workup from a cardiology perspective, please reconsult if needed. Smoking cessation discussed and highly recommended. Thank you kindly for this consultation. Nurse practitioner note has been reviewed by physician. Signing provider agrees with the documented findings, assessment, and plan of care. Past Medical History Past Medical History: Atrial Fibrillation, Chest Pain / Angina, COPD, CVA/TIA, Diabetes Mellitus, GERD/Reflux, GI Bleed, Hearing Disorder / Deafness, Hyperlipidemia, Hypertension, Liver Disease, Pneumonia, Prostate Disorder, Pulmonary Embolus (PE) Additional Past Medical History / Comment(s): [facility] Other hx: GI bleed/ esophageal varicies banded. Other hx: Alcoholism, alcohol withdrawal DTs and possibly a seizure in 2018 r/t withdraw al, chronic alcoholic cirrhosis with portal hypertension and previous history of upper and lower GI bleeding, esophageal varices, previous history of childhood seizure which he outgrew not taking any antiepileptic medication, pulmonary embolism x 2 R lung, TIA, diverticulosis, chronic lower bilateral extremity ankle edema if he walks a lot, previous history of septicemia, cervical disc disease, chronic neck pain, chronic back pain with r sided sciatica, degenerative arthritis involving the lower back, scoliosis, tinnitus, vitamin D deficiency, iron anemia, chronic thrombocytopenia, denies MRSA, C-DIFF -2018 History of Any Multi-Drug Resistant Organisms: MRSA Date of last positivie culture/infection: 03/17/18 MDRO Source:: stomach Past Surgical History: Appendectomy, Cholecystectomy Additional Past Surgical History / Comment(s): EGDs/esophageal varicies bandings, colonoscopies. Past Anesthesia/Blood Transfusion Reactions: No Reported Reaction Additional Past Anesthesia/Blood Transfusion Reaction / Comment(s): after appendix removed sob Past Psychological History: Anxiety, Depression Smoking Status: Never smoker Past Alcohol Use History: Occasional Past Drug Use History: None Reported - Past Family History Mother Family Medical History: COPD, CVA/TIA, Dementia Additional Family Medical History / Comment(s): from a stroke Father Family Medical History: Pneumonia Additional Family Medical History / Comment(s): Father of pneumonia when he was close to 80 yrs old. Medications and Allergies Home Medications Medication Instructions Recorded Confirmed Type Ferrous Sulfate [Iron (65 MG 325 mg PO DAILY #30 tab 06/07/19 11/13/21 Rx Elemental)] Folic Acid 1 mg PO DAILY 01/07/20 11/13/21 History traZODone HCL 50 mg PO HS PRN 01/07/20 11/13/21 History Ergocalciferol [Vitamin D2 (1250 1,250 mcg PO Q30D 10/30/20 11/13/21 History Mcg = 87371 Iu)] Naproxen 500 mg PO BID PRN 10/30/20 11/13/21 History Omeprazole 20 mg PO DAILY 03/02/21 11/13/21 History Magnesium Oxide [Mag-Ox] 400 mg PO BID #60 tab 04/03/21 11/13/21 Rx Thiamine [Vitamin B-1] 100 mg PO W/LUNCH 07/21/21 11/13/21 History Atorvastatin [Lipitor] 40 mg PO DAILY 30 Days #30 tab 07/25/21 11/13/21 Rx Cyclobenzaprine [Flexeril] 10 mg PO TID PRN #30 tab 07/25/21 11/13/21 Rx Sucralfate [Carafate] 1 gm PO AC-TID #90 tablet 07/25/21 11/13/21 Rx Losartan [Cozaar] 50 mg PO TID 09/23/21 11/13/21 History Metoprolol Succinate (ER) [Toprol 100 mg PO DAILY #30 09/26/21 11/13/21 Rx XL] Rivaroxaban [Xarelto] 20 mg PO DAILY #30 tab 10/14/21 11/13/21 Rx Allergies Allergy/AdvReac Type Severity Reaction Status Date / Time adhesive tape Allergy Rash/Hives Verified 11/13/21 20:41 latex Allergy Unknown Verified 11/13/21 20:41 egg AdvReac Nausea & Verified 11/13/21 20:41 Vomiting lisinopril AdvReac EYES Verified 11/13/21 20:41 BURN&ITCH/WEAKNESS tomato AdvReac Nausea & Verified 11/13/21 20:41 Vomiting & Diarrhea Physical Exam Vitals: Vital Signs Temp Pulse Pulse Resp BP BP Pulse Ox 11/14/21 08:40 98.1 F 101 H 15 148/83 98 11/14/21 07:18 92 18 11/14/21 07:10 88 18 11/14/21 05:55 85 20 128/85 97 11/14/21 03:00 70 117/76 11/14/21 01:00 71 114/71 11/13/21 23:00 79 101/65 11/13/21 22:00 80 92/59 11/13/21 21:45 78 94/58 11/13/21 21:00 75 100/65 11/13/21 20:45 86 76/49 11/13/21 20:12 86 91/61 97 11/13/21 19:50 86 82/61 11/13/21 19:40 84 78 65/45 11/13/21 19:30 85 16 103/83 95 11/13/21 19:02 98.2 F 85 16 95/48 98 Intake and Output 11/13/21 11/14/21 11/14/21 22:59 06:59 14:59 Intake Total 500 Balance 500 Intake: Oral 500 Other: Weight 95.254 kg Results 11/14/21 05:20 11/14/21 05:19 Cardiac Enzymes 11/13/21 11/13/21 11/14/21 Range/Units 19:53 19:53 05:19 AST 68 H 60 H (17-59) U/L Troponin I 0.017 (0.000-0.034) ng/mL Coagulation 11/13/21 Range/Units 19:53 PT 11.7 (9.0-12.0) sec APTT 22.4 (22.0-30.0) sec CBC 11/13/21 11/14/21 Range/Units 19:53 05:20 WBC 3.6 L 2.5 L (3.8-10.6) k/uL RBC 3.47 L 3.39 L (4.30-5.90) m/uL Hgb 11.1 L 10.9 L (13.0-17.5) gm/dL Hct 33.6 L 33.3 L (39.0-53.0) % Plt Count 98 L 84 L (150-450) k/uL Comprehensive Metabolic Panel 11/13/21 11/14/21 Range/Units 19:53 05:19 Sodium 139 140 (137-145) mmol/L Potassium 3.5 3.9 (3.5-5.1) mmol/L Chloride 106 112 H (98-107) mmol/L Carbon Dioxide 22 20 L (22-30) mmol/L BUN 22 H 18 (9-20) mg/dL Creatinine 2.87 H 1.94 H (0.66-1.25) mg/dL Glucose 129 H 104 H (74-99) mg/dL Calcium 8.3 L 7.8 L (8.4-10.2) mg/dL AST 68 H 60 H (17-59) U/L ALT 27 27 (4-49) U/L Alkaline Phosphatase 116 122 (38-126) U/L Total Protein 6.3 6.1 L (6.3-8.2) g/dL Albumin 3.1 L 3.0 L (3.5-5.0) g/dL Current Medications Generic Name Dose Route Start Last Admin Trade Name Freq PRN Reason Stop Dose Admin Acetaminophen 650 mg 11/13/21 22:02 Acetaminophen Tab 325 Mg Tab PO Q6HR PRN Mild Pain or Fever > 100.5 Albuterol Sulfate 2.5 mg 11/14/21 00:56 11/14/21 07:10 Albuterol Nebulized 2.5 Mg/3 Ml INHALATION 2.5 mg RT-Q4H PRN Administration Shortness Of Breath Or Wheezing Diazepam 5 mg 11/13/21 22:07 Diazepam 5 Mg/Ml 2 Ml Inj IVP Q1H PRN Alcohol Withdrawal Folic Acid 1 mg 11/14/21 09:00 11/14/21 08:48 Folic Acid 1 Mg Tab PO 1 mg DAILY TANYA Administration Sodium Chloride 1,000 mls @ 100 mls/hr 11/13/21 22:15 11/14/21 08:49 Saline 0.9% IV 100 mls/hr .Q10H TANYA Administration Piperacillin Sod/Tazobactam 100 mls @ 25 mls/hr 11/14/21 16:00 Sod 3.375 gm/ Sodium Chloride IVPB Q8HR [facility] Protocol Insulin Aspart 0 unit 11/14/21 07:30 11/14/21 08:45 Insulin Aspart (Novolog) 100 Unit/Ml Vial SQ Not Given ACHS [facility] Protocol Lorazepam 1 mg 11/14/21 07:36 Lorazepam 1 Mg Tab PO Q2HR PRN CIWA 8 or 9 Lorazepam 1 mg 11/14/21 07:36 Lorazepam 1 Mg Tab PO Q1HR PRN CIWA 10 to 15 Lorazepam 2 mg 11/14/21 07:36 Lorazepam 1 Mg Tab PO 11/16/21 07:37 Q10M PRN CIWA 16 or higher Magnesium Oxide 400 mg 11/14/21 09:00 11/14/21 08:48 Magnesium Oxide 400 Mg Tab PO 400 mg BID TANYA Administration Metoprolol Succinate 100 mg 11/14/21 09:00 11/14/21 08:48 Metoprolol Succinate (Er) 100 Mg Tab.Er.24h PO 100 mg DAILY TANYA Administration Miscellaneous Information 1 each 11/14/21 00:56 Pneumonia Protocol Utilized 1 Each Misc PO ONCE PRN Per Protocol Miscellaneous Information 1 each 11/14/21 09:53 Potassium Replacement Protocol 1 Each Misc MISCELLANE DAILY PRN Per Protocol Protocol Miscellaneous Information 1 each 11/14/21 09:53 Magnesium Replacement Protocol 1 Each Misc MISCELLANE DAILY PRN Per Protocol Protocol Multivitamins 1 each 11/14/21 09:00 11/14/21 08:48 Multivitamins, Thera 1 Each Tab PO 1 each DAILY TANYA Administration Naloxone HCl 0.2 mg 11/13/21 22:02 Naloxone 0.4 Mg/Ml 1 Ml Vial IV Q2M PRN Opioid Reversal Ondansetron HCl 4 mg 11/13/21 22:02 11/14/21 05:52 Ondansetron 4 Mg/2 Ml Vial IVP 4 mg Q8HR PRN Administration Nausea And Vomiting Pantoprazole Sodium 40 mg 11/15/21 07:30 Pantoprazole 40 Mg Tablet PO AC-BRKFST [facility] Rivaroxaban 20 mg 11/14/21 09:00 11/14/21 08:48 Rivaroxaban 20 Mg Tab PO 20 mg DAILY TANYA Administration Protocol Sucralfate 1 gm 11/14/21 07:30 11/14/21 08:49 Sucralfate 1 Gm Tab PO 1 gm AC-TID TANYA Administration Thiamine HCl 100 mg 11/13/21 17:30 11/14/21 08:48 Thiamine 100 Mg Tab PO 100 mg BID-W/MEALS TANYA Administration Trazodone HCl 50 mg 11/13/21 22:08 Trazodone Hcl 50 Mg Tab PO HS PRN Insomnia Intake and Output 11/13/21 11/14/21 11/14/21 22:59 06:59 14:59 Intake Total 500 Balance 500 Intake: Oral 500 Other: Weight 95.254 kg 11/14/21 05:20 11/14/21 05:19
[2021-11-14 16:38] LABS: Glucose,Whole Blood 129 mg/dL (70-110)
[2021-11-14] MEDS: PIPERACILLIN-TAZOBACTAM 3.375 GM in SODIUM CHLORIDE 0.9% 100 ML IVPB SCH (16:51)
[2021-11-14] MEDS: LORazepam 1 MG TAB PO PRN (20:45)
[2021-11-14] MEDS: ACETAMINOPHEN TAB 325 MG TAB PO PRN (20:47)
[2021-11-14 21:06] LABS: Glucose,Whole Blood 134 mg/dL (70-110)
[2021-11-15] MEDS: LORazepam 1 MG TAB PO PRN ×2 (01:01→21:53)
[2021-11-15] MEDS: PIPERACILLIN-TAZOBACTAM 3.375 GM in SODIUM CHLORIDE 0.9% 100 ML IVPB SCH ×2 (01:01→08:18)
[2021-11-15 06:20] LABS: Glucose,Whole Blood 114 mg/dL (70-110)
[2021-11-15] MEDS: INSULIN ASPART (NovoLOG) 100 UNIT/ML VIAL SQ SCH ×4 (06:41→20:16)
[2021-11-15] MEDS: SODIUM CHLORIDE 0.9% 1,000 ML IV SCH ×2 (06:41→18:08)
[2021-11-15] MEDS: THIAMINE 100 MG TAB PO SCH ×2 (06:52→16:47)
[2021-11-15] MEDS: PANTOPRAZOLE 40 MG TABLET PO SCH (06:52)
[2021-11-15] MEDS: SUCRALFATE 1 GM TAB PO SCH ×3 (06:52→16:47)
--- NOTE | 2021-11-15 07:52 | P.PN ---
Subjective Progress Note Date: 11/15/21 PROGRESS NOTE The patient is a 66-year-old male who presented with dyspnea, cough and respirophasic chest pain. He has a known history of chronic alcohol intake. He recently underwent cardiac workup and an MPI in an echo that showed no evidence of significant abnormalities. He is still complaining of dyspnea with cough and respirophasic discomfort. He has some epistaxis. He denies any dizziness or palpitations. No PND or orthopnea or peripheral edema. He continues to be in sinus mechanism. Medications: IV Zithromax, IV Rocephin, metoprolol succinate 100 mg daily, Xarelto 20 mg daily, thiamine, Carafate, trazodone PHYSICAL EXAMINATION: Blood pressure 158/82 heart rate 87 LUNGS: Decreased breath sounds bilaterally with scattered wheezes HEART: Regular rate and rhythm, S1, S2. No S3. systolic ejection murmur ABDOMEN: Soft, nontender, no organomegaly EXTREMETIES: No edema LAB: Pending IMPRESSION: 1. Chest discomfort, respirophasic, atypical for cardiac etiology 2. History of paroxysmal atrial fibrillation, maintaining sinus mechanism 3. Hypertension 4. Chronic alcohol intake 5. Renal failure, improving PLAN: 1. Add amlodipine for blood pressure control 2. Restart statin 3. Continue beta madeline and anticoagulation 4. We will see him on as needed basis, please feel free to call us for any question. Objective - Vital Signs Vital signs: Vital Signs Temp 97.8 F 11/15/21 04:00 Pulse 87 11/15/21 04:00 Resp 18 11/15/21 04:00 BP 158/82 11/15/21 04:00 Pulse Ox 94 L 11/15/21 04:00 FiO2 Intake & Output 11/14/21 11/15/21 11/15/21 18:59 06:59 18:59 Intake Total 1000 Balance 1000 Weight 95.254 kg Intake: Oral 1000 Other: Voiding Method Toilet Toilet # Voids 2 # Bowel Movements 3 - Labs CBC & Chem 7: 11/14/21 05:20 11/14/21 05:19 Labs: Abnormal Lab Results - Last 24 Hours (Table) 11/14/21 11/14/21 11/14/21 Range/Units 05:19 16:36 20:57 POC Glucose (mg/dL) 129 H 134 H (70-110) mg/dL Procalcitonin 0.13 H (0.02-0.09) ng/mL 11/15/21 Range/Units 06:07 POC Glucose (mg/dL) 114 H (70-110) mg/dL Procalcitonin (0.02-0.09) ng/mL Microbiology - Last 24 Hours (Table) 11/14/21 02:10 Blood Culture - Preliminary Blood No Growth after 24 hours 11/14/21 02:00 Blood Culture - Preliminary Blood No Growth after 24 hours
[2021-11-15] MEDS: RIVAROXABAN 20 MG TAB PO SCH (08:17)
[2021-11-15] MEDS: METOPROLOL SUCCINATE (ER) 100 MG TAB.ER.24H PO SCH (08:17)
[2021-11-15] MEDS: FOLIC ACID 1 MG TAB PO SCH (08:17)
[2021-11-15] MEDS: MULTIVITAMINS, THERA 1 EACH TAB PO SCH (08:17)
[2021-11-15] MEDS: ATORVASTATIN 40 MG TAB PO SCH (08:17)
[2021-11-15] MEDS: MAGNESIUM OXIDE 400 MG TAB PO SCH ×2 (08:17→20:20)
[2021-11-15] MEDS: amLODIPine 5 MG TAB PO SCH (08:17)
--- NOTE | 2021-11-15 08:58 | CT ---
EXAMINATION TYPE: CT chest wo con CT DLP: 474.1 mGycm, Automated exposure control for dose reduction was used. DATE OF EXAM: 11/15/2021 8:43 AM COMPARISON: CT chest 05/26/2021. CLINICAL INDICATION:Male, 66 years old with history of pna vs other, Cough, trouble breathing TECHNIQUE: Multiple axial images were obtained through the chest without IV contrast. Lack of IV or o ral contrast limits evaluation of solid and hollow organ viscera. FINDINGS: LUNGS/ PLEURA: Similar appearance of lungs with increased interstitial reticulation most pronounced o n the left. No focal consolidation, pneumothorax or pleural effusion. Scattered calcified granulomas are present. AIRWAY: Patent and unremarkable. HEART: The heart is mildly increased in size. Moderate coronary atherosclerosis is present. Partially calcified lymph nodes in the right pulmonary hilum. MEDIASTINUM: No gross evidence of adenopathy. Small hiatal hernia. VASCULATURE: No aortic aneurysm. Mild atherosclerosis of the arterial vasculature. MUSCULOSKELETAL: No acute osseous abnormalities. Multilevel disc degeneration changes seen throughout the spine with wedge compression of deep 3 vertebral body which is unchanged from prior. SOFT TISSUES/LYMPH NODES: Bilateral gynecomastia LOWER NECK: No significant findings. UPPER ABDOMEN: Nodular contour to liver with diffuse low-attenuation. Calcified granuloma in the sple en. Gallbladder is surgically absent. IMPRESSION: 1. No focal consolidation to suggest pneumonia. There is stable appearing reticular opacities most pr onounced in the left which could be sequela prior infection. 2. Cirrhosis with hepatic steatosis. 3. Similar cardiomegaly.
[2021-11-15 09:14] LABS: Albumin 3.8 g/dL (3.5-5.0); Bilirubin, Delta 0.3 mg/dL (0.0-0.2); Bilirubin,Unconjugated 1.2 mg/dL (0.0-1.1); Calcium 8.1 mg/dL (8.4-10.2); Magnesium 1.3 mg/dL (1.6-2.3); Potassium 3.3 mmol/L (3.5-5.1); Total Bilirubin 1.5 mg/dL (0.2-1.3); Total Protein 7.7 g/dL (6.3-8.2)
[2021-11-15 09:17] LABS: Basophils % (A) 0 %; Eosinophils # (A) 0.1 k/uL (0-0.7); Eosinophils % (A) 4 %; HCT 39.1 % (39.0-53.0); HGB 12.7 gm/dL (13.0-17.5); Lymphocytes # (A) 0.7 k/uL (1.0-4.8); Lymphocytes % (A) 25 %; MCHC 32.5 g/dL (31.0-37.0); MCV 98.4 fL (80.0-100.0); Mean Platelet Volume 9.1; Monocytes # (A) 0.2 k/uL (0-1.0); Monocytes % (A) 5 %; Neutrophils # (A) 1.8 k/uL (1.3-7.7); Neutrophils % (A) 64 %; RBC 3.97 m/uL (4.30-5.90); RDW 14.5 % (11.5-15.5); WBC 2.9 k/uL (3.8-10.6)
[2021-11-15 09:18] LABS: Platelet Count 83 k/uL (150-450)
--- NOTE | 2021-11-15 09:22 | XR ---
EXAMINATION TYPE: XR shoulder complete LT DATE OF EXAM: 11/15/2021 8:45 AM INDICATION: Patient age:Male; 66 years old; Reason for study: pain; COMPARISON: Chest radiograph most recent 11/13/2021. TECHNIQUE: The left shoulder was examined in AP, internally rotated and scapular Y projections. . FINDINGS: Chronic appearing fracture of the proximal left humerus with bowel alignment post healing. No evidenc e of acute osseous pathology, joint dislocation, or soft tissue swelling. The remaining portions of t he visualized chest are unremarkable. IMPRESSION: Chronic fracture of the left proximal humerus with bony healing and mal alignment. No evidence for ac [place] fracture.
[2021-11-15] MEDS ORDERED: POTASSIUM CHLORIDE ER 20 MEQ TAB.ER PO STA (09:46)
[2021-11-15] MEDS ORDERED: hydrALAZINE HCL 20 MG/ML 1 ML VIAL IVP PRN (10:41)
--- NOTE | 2021-11-15 10:43 | P.PN ---
Subjective Patient is seen in follow-up for acute kidney injury. Renal function improving with IV hydration. Denies chest pain or shortness of breath. Good urine output. No vomiting or diarrhea. Oral intake fair. Vital signs are stable. General: Awake. No acute distress. HEENT: Head exam is unremarkable. LUNGS: Breath sounds decreased. HEART: Rate and Rhythm are regular. ABDOMEN: Soft, no distention. EXTREMITITES: No edema. Objective - Vital Signs Vital signs: Vital Signs Temp 98.2 F 11/15/21 08:10 Pulse 100 11/15/21 08:10 Resp 16 11/15/21 08:10 BP 165/108 11/15/21 08:10 Pulse Ox 96 11/15/21 08:10 FiO2 Intake & Output 11/14/21 11/15/21 11/15/21 18:59 06:59 18:59 Intake Total 1000 240 Balance 1000 240 Weight 95.254 kg Intake: Oral 1000 240 Other: Voiding Method Toilet Toilet # Voids 2 # Bowel Movements 3 - Labs CBC & Chem 7: 11/15/21 08:23 11/15/21 08:23 Labs: Abnormal Lab Results - Last 24 Hours (Table) 11/14/21 11/14/21 11/14/21 Range/Units 05:19 16:36 20:57 WBC (3.8-10.6) k/uL RBC (4.30-5.90) m/uL Hgb (13.0-17.5) gm/dL Plt Count (150-450) k/uL Lymphocytes # (1.0-4.8) k/uL Potassium (3.5-5.1) mmol/L Glucose (74-99) mg/dL POC Glucose (mg/dL) 129 H 134 H (70-110) mg/dL Calcium (8.4-10.2) mg/dL Magnesium (1.6-2.3) mg/dL Total Bilirubin (0.2-1.3) mg/dL Unconjugated Bilirubin (0.0-1.1) mg/dL Delta Bilirubin (0.0-0.2) mg/dL AST (17-59) U/L Alkaline Phosphatase (38-126) U/L Procalcitonin 0.13 H (0.02-0.09) ng/mL 07/07/0811/15/21 11/15/21 Range/Units 06:07 08:23 08:23 WBC 2.9 L (3.8-10.6) k/uL RBC 3.97 L (4.30-5.90) m/uL Hgb 12.7 L (13.0-17.5) gm/dL Plt Count 83 L (150-450) k/uL Lymphocytes # 0.7 L (1.0-4.8) k/uL Potassium 3.3 L (3.5-5.1) mmol/L Glucose 163 H (74-99) mg/dL POC Glucose (mg/dL) 114 H (70-110) mg/dL Calcium 8.1 L (8.4-10.2) mg/dL Magnesium 1.3 L (1.6-2.3) mg/dL Total Bilirubin 1.5 H (0.2-1.3) mg/dL Unconjugated Bilirubin 1.2 H (0.0-1.1) mg/dL Delta Bilirubin 0.3 H (0.0-0.2) mg/dL AST 75 H (17-59) U/L Alkaline Phosphatase 143 H (38-126) U/L Procalcitonin (0.02-0.09) ng/mL Microbiology - Last 24 Hours (Table) 11/14/21 02:10 Blood Culture - Preliminary Blood No Growth after 24 hours 11/14/21 02:00 Blood Culture - Preliminary Blood No Growth after 24 hours Assessment and Plan Plan: Assessment: 1. Acute kidney injury mostly prerenal secondary to hypovolemia improving with IV hydration. Creatinine was 2.87 on admission and is 1.3 today. Questionable right hydronephrosis noted. No definitive obstruction. 2. Hypokalemia from poor intake and hypomagnesemia. 3. Hypomagnesemia from poor intake. 4. History of alcohol abuse. 5. Benign hypertension. Plan: Maintain normal saline at 50 mL an hour. Encourage oral intake. Replace potassium. Replace magnesium. Amlodipine added today. Add hydralazine 10 mg IV every 4-6 hours as needed for systolic blood pressure above 160.
[2021-11-15] MEDS: guaiFENesin-DM 100-10MG/5ML 10 ML CUP PO SCH ×4 (10:51→23:26)
[2021-11-15] MEDS: MAGNESIUM SULFATE-D5W PMX 1 GM in DEXTROSE/WATER 1 100ML.BAG IVPB SCH ×2 (10:51→12:09)
[2021-11-15] MEDS: NYSTATIN 100,000 UNIT/GM POWD 15 GM TOPICAL SCH ×2 (10:51→20:21)
--- NOTE | 2021-11-15 11:20 | P.CNPUL ---
History of Present Illness Consult date: 11/15/21 Reason for consult: dyspnea History of present illness: I was asked to evaluate this patient. Consider pulmonary embolism. This patient has history of alcoholism. He was actively drinking alcohol even prior to his hospital admission. He is known to have a mild component of COPD, chronic liver disease, pancytopenia, remote history of pulmonary embolism and history of atrial fibrillation and the patient underwent anticoagulation with Xarelto. The patient has had previous alcohol withdrawal seizures. The patient is combination of liver disease including portal hypertension, history of GI bleeding secondary to esophageal variceal bleeding. The patient came in the hospital feeling weak, debilitated, dehydrated, he was also having some tightness in his chest. He was found to be in acute kidney injury. He was likely anxious. He is a nonsmoker in fact the patient states that he is a lifetime nonsmoker. For that reason, the patient came into the hospital. The chest x-ray was clear. The patient was found to be in acute kidney injury. Note that with hydration, the renal function gradually improved. Creatinine was as high as 2.87 and currently is down to 1.23. Most recent blood count shows a WBC of 2.9 with hemoglobin 12.7 and a platelet count of 83 all stable. The patient has sodium level of 139, BUN of 12 and a creatinine of 1.2. LFTs are normal. Calcium is at 8.1. Phosphorus is at 1.3 being replaced. The UA is negative. TSH is at 1.7. ProBNP level is 74. Urine drug screen was negative. Alcohol level was 239 at time of admission. COVID 19 testing was negative. The influenza screen was also negative. Noted the patient also had a CT of the chest today that showed some chronic post inflammatory/infectious changes and left lung. Otherwise there is no previous breast disease. No signs of any aspiration pneumonia. This was done without contrast. Currently is on room air oxygen with a pulse ox of 96%. Review of Systems CONSTITUTIONAL: No fever, no malaise, increased fatigue and tiredness HEENT: No recent visual problems or hearing problems. Denied any sore throat. CARDIOVASCULAR: No orthopnea, PND, no palpitations, no syncope. PULMONARY: No chest wall tenderness, no hemoptysis. GASTROINTESTINAL: No diarrhea, no nausea, no vomiting, no abdominal pain. Normo active bowel sounds. NEUROLOGICAL: No headaches, no weakness, no numbness. HEMATOLOGICAL: Denies any bleeding or petechiae. GENITOURINARY: Denies any burning micturition, frequency, or urgency. MUSCULOSKELETAL/RHEUMATOLOGICAL: Denies any joint pain, swelling, or any muscle pain. ENDOCRINE: Denies any polyuria or polydipsia. Past Medical History Past Medical History: Atrial Fibrillation, Chest Pain / Angina, COPD, CVA/TIA, Diabetes Mellitus, GERD/Reflux, GI Bleed, Hearing Disorder / Deafness, Hyperlipidemia, Hypertension, Liver Disease, Pneumonia, Prostate Disorder, Pulmonary Embolus (PE) Additional Past Medical History / Comment(s): Pt recently hospitalized at [facility] with pneumonia. Other hx: GI bleed/ esophageal varicies banded. Other hx: Alcoholism, alcohol withdrawal DTs and possibly a seizure in 2018 r/t with drawal, chronic alcoholic cirrhosis with portal hypertension and previous history of upper and lower GI bleeding, esophageal varices, previous history of childhood seizure which he outgrew not taking any antiepileptic medication, pulmonary embolism x 2 R lung, TIA, diverticulosis, chronic lower bilateral extremity ankle edema if he walks a lot, previous history of septicemia, cervical disc disease, chronic neck pain, chronic back pain with r sided sciatica, degenerative arthritis involving the lower back, scoliosis, tinnitus, vitamin D deficiency, iron anemia, chronic thrombocytopenia, denies MRSA, C-DIFF -2018 History of Any Multi-Drug Resistant Organisms: MRSA Date of last positivie culture/infection: 03/17/18 MDRO Source:: stomach Past Surgical History: Appendectomy, Cholecystectomy Additional Past Surgical History / Comment(s): EGDs/esophageal varicies yvonne ngs, colonoscopies. Past Anesthesia/Blood Transfusion Reactions: No Reported Reaction Additional Past Anesthesia/Blood Transfusion Reaction / Comment(s): after appendix removed sob Past Psychological History: Anxiety, Depression Smoking Status: Never smoker Past Alcohol Use History: Occasional Past Drug Use History: None Reported - Past Family History Mother Family Medical History: COPD, CVA/TIA, Dementia Additional Family Medical History / Comment(s): from a stroke Father Family Medical History: Pneumonia Additional Family Medical History / Comment(s): Father of pneumonia when he was close to 80 yrs old. Medications and Allergies Home Medications Medication Instructions Recorded Confirmed Type Ferrous Sulfate [Iron (65 MG 325 mg PO DAILY #30 tab 06/07/19 11/13/21 Rx Elemental)] Folic Acid 1 mg PO DAILY 01/07/20 11/13/21 History traZODone HCL 50 mg PO HS PRN 01/07/20 11/13/21 History Ergocalciferol [Vitamin D2 (1250 1,250 mcg PO Q30D 10/30/20 11/13/21 History Mcg = 58728 Iu)] Naproxen 500 mg PO BID PRN 10/30/20 11/13/21 History Omeprazole 20 mg PO DAILY 03/02/21 11/13/21 History Magnesium Oxide [Mag-Ox] 400 mg PO BID #60 tab 04/03/21 11/13/21 Rx Thiamine [Vitamin B-1] 100 mg PO W/LUNCH 07/21/21 11/13/21 History Atorvastatin [Lipitor] 40 mg PO DAILY 30 Days #30 tab 07/25/21 11/13/21 Rx Cyclobenzaprine [Flexeril] 10 mg PO TID PRN #30 tab 07/25/21 11/13/21 Rx Sucralfate [Carafate] 1 gm PO AC-TID #90 tablet 07/25/21 11/13/21 Rx Losartan [Cozaar] 50 mg PO TID 09/23/21 11/13/21 History Metoprolol Succinate (ER) [Toprol 100 mg PO DAILY #30 09/26/21 11/13/21 Rx XL] Rivaroxaban [Xarelto] 20 mg PO DAILY #30 tab 10/14/21 11/13/21 Rx Allergies Allergy/AdvReac Type Severity Reaction Status Date / Time adhesive tape Allergy Rash/Hives Verified 11/13/21 20:41 latex Allergy Unknown Verified 11/13/21 20:41 egg AdvReac Nausea & Verified 11/13/21 20:41 Vomiting lisinopril AdvReac EYES Verified 11/13/21 20:41 BURN&ITCH/WEAKNESS tomato AdvReac Nausea & Verified 11/13/21 20:41 Vomiting & Diarrhea Physical Exam Vitals: Vital Signs Temp Pulse Resp BP Pulse Ox 11/15/21 08:10 98.2 F 100 16 165/108 96 11/15/21 04:00 97.8 F 87 18 158/82 94 L 11/15/21 02:00 82 20 11/15/21 00:00 82 20 164/86 95 11/14/21 20:34 98.1 F 92 18 167/88 94 L 11/14/21 20:00 92 18 11/14/21 17:03 97.9 F 88 18 159/96 11/14/21 14:00 16 11/14/21 12:19 97.5 F L 87 16 172/97 94 L Intake and Output 11/14/21 11/15/21 11/15/21 22:59 06:59 14:59 Intake Total 500 240 Balance 500 240 Intake: Oral 500 240 Other: Voiding Method Toilet Toilet # Voids 2 # Bowel Movements 3 GENERAL: The patient is alert and oriented x3, not in any acute distress. Well developed, well nourished. Breathing is nonlabored and the patient is currently on room air oxygen. HEENT: Pupils are round and equally reacting to light. EOMI. No scleral icterus. No conjunctival pallor. Normocephalic, atraumatic. No pharyngeal erythema. No thyromegaly. CARDIOVASCULAR: S1 and S2 present. No murmurs, rubs, or gallops. -PULMONARY: Chest is clear to auscultation, no wheezing. No crackles. The patient has some limited amount of expiratory wheezes throughout the lung guadalupe bilaterally. ABDOMEN: Soft, nontender, nondistended, normoactive bowel sounds. No palpable organomegaly. MUSCULOSKELETAL: No joint swelling or deformity. -EXTREMITIES: No cyanosis, clubbing,. Mild pitting like edema NEUROLOGICAL: Gross neurological examination did not reveal any focal deficits. No signs of any delirium tremens. SKIN: No rashes. no petechiae. Results - Laboratory Findings CBC and BMP: 11/15/21 08:23 11/15/21 08:23 PT/INR, D-dimer PT 11.7 sec (9.0-12.0) 11/13/21 19:53 INR 1.1 (<1.2) 11/13/21 19:53 Abnormal lab findings: Abnormal Labs 11/13/21 11/13/21 11/13/21 19:38 19:53 19:53 WBC 3.6 L RBC 3.47 L Hgb 11.1 L Hct 33.6 L Plt Count 98 L Lymphocytes # Potassium Chloride Carbon Dioxide BUN 22 H Creatinine 2.87 H Glucose 129 H POC Glucose (mg/dL) 132 H Calcium 8.3 L Magnesium Total Bilirubin Unconjugated Bilirubin Delta Bilirubin AST 68 H Alkaline Phosphatase Total Protein Albumin 3.1 L Procalcitonin Serum Alcohol 237 H* 11/14/21 11/14/21 11/14/21 05:19 05:19 05:20 WBC 2.5 L RBC 3.39 L Hgb 10.9 L Hct 33.3 L Plt Count 84 L Lymphocytes # 0.8 L Potassium Chloride 112 H Carbon Dioxide 20 L BUN Creatinine 1.94 H Glucose 104 H POC Glucose (mg/dL) Calcium 7.8 L Magnesium 1.4 L Total Bilirubin Unconjugated Bilirubin Delta Bilirubin AST 60 H Alkaline Phosphatase Total Protein 6.1 L Albumin 3.0 L Procalcitonin 0.13 H Serum Alcohol 11/14/21 11/14/21 11/15/21 16:36 20:57 06:07 WBC RBC Hgb Hct Plt Count Lymphocytes # Potassium Chloride Carbon Dioxide BUN Creatinine Glucose POC Glucose (mg/dL) 129 H 134 H 114 H Calcium Magnesium Total Bilirubin Unconjugated Bilirubin Delta Bilirubin AST Alkaline Phosphatase Total Protein Albumin Procalcitonin Serum Alcohol 11/15/21 11/15/21 08:23 08:23 WBC 2.9 L RBC 3.97 L Hgb 12.7 L Hct Plt Count 83 L Lymphocytes # 0.7 L Potassium 3.3 L Chloride Carbon Dioxide BUN Creatinine Glucose 163 H POC Glucose (mg/dL) Calcium 8.1 L Magnesium 1.3 L Total Bilirubin 1.5 H Unconjugated Bilirubin 1.2 H Delta Bilirubin 0.3 H AST 75 H Alkaline Phosphatase 143 H Total Protein Albumin Procalcitonin Serum Alcohol - Diagnostic Findings Chest x-ray: image reviewed CT scan - chest: image reviewed Assessment and Plan Plan: Chest tightness, nonspecific, could be anxiety. Limited wheezing was appreciated on today's exam. We'll provide this patient some DuoNeb neb around the clock. Cardiac evaluation has already been completed Alcoholism Acute alcohol intoxication at time of admission Chronic narcotic liver disease with complications related to alcoholism including pancytopenia, esophageal variceal bleed Chronic atrial fibrillation with a left ventricular dimension with Xarelto Previous history of pulmonary embolism, maintained on Xarelto Acute kidney injury, likely secondary to vascular volume depletion, improved Chronic anxiety/depression Hypertension Previous history of alcoholic seizures Previous history of TIA Plan Start the patient on DuoNeb nebulized treatments around the clock Continue anticoagulation with Xarelto No concerns for aspiration pneumonia Will be useful to establish a baseline echocardiogram. This will discuss with cardiology Respiratory medications were appropriate. We'll continue to follow
[2021-11-15 11:28] LABS: Glucose,Whole Blood 159 mg/dL (70-110)
--- NOTE | 2021-11-15 11:32 | P.CNOR ---
History of Present Illness - [facility] Consult date: 11/15/21 Consult reason: fracture (History of left proximal humerus fracture.) History of present illness: This is a 66-year-old male admitted to [facility] with weakness and generalized malaise. He has history of diabetes and alcoholism. The patient does have a remote history of left proximal humerus fracture proximally 5 or 6 years ago which was treated nonoperatively. The patient states that he has minimal residual symptoms from the fracture. He states that he does have a slight limitation in range of motion of the shoulder. Occasionally he has pain. Orthopedics was consulted for evaluation of the fracture that was incidentally noted on chest x-ray. Past Medical History Past Medical History: Atrial Fibrillation, Chest Pain / Angina, COPD, CVA/TIA, Diabetes Mellitus, GERD/Reflux, GI Bleed, Hearing Disorder / Deafness, Hyperlipidemia, Hypertension, Liver Disease, Pneumonia, Prostate Disorder, Pulmonary Embolus (PE) Additional Past Medical History / Comment(s): Pt recently hospitalized at [facility] with pneumonia. Other hx: GI bleed/ esophageal varicies banded. Other hx: Alcoholism, alcohol withdrawal DTs and possibly a seizure in 2018 r/t withdrawal, chronic alcoholic cirrhosis with portal hypertension and previous history of upper and lower GI bleeding, esophageal varices, previous history of childhood seizure which he outgrew not taking any antiepileptic medication, pulmonary embolism x 2 R lung, TIA, diverticulosis, chronic lower bilateral extremity ankle edema if he walks a lot, previous history of septicemia, ce rvical disc disease, chronic neck pain, chronic back pain with r sided sciatica, degenerative arthritis involving the lower back, scoliosis, tinnitus, vitamin D deficiency, iron anemia, chronic thrombocytopenia, denies MRSA, C-DIFF History of Any Multi-Drug Resistant Organisms: MRSA Year Discovered:: 03/17/18 MDRO Source:: stomach Past Surgical History: Appendectomy, Cholecystectomy Additional Past Surgical History / Comment(s): EGDs/esophageal varicies bandings, colonoscopies. Past Anesthesia/Blood Transfusion Reactions: No Reported Reaction Additional Past Anesthesia/Blood Transfusion Reaction / Comm: after appendix removed sob Past Psychological History: Anxiety, Depression Smoking Status: Never smoker Past Alcohol Use History: Occasional Past Drug Use History: None Reported - Past Family History Mother Family Medical History: COPD, CVA/TIA, Dementia Additional Family Medical History / Comment(s): from a stroke Father Family Medical History: Pneumonia Additional Family Medical History / Comment(s): Father of pneumonia when he was close to 80 yrs old. Medications and Allergies Home Medications Medication Instructions Recorded Confirmed Type Ferrous Sulfate [Iron (65 MG 325 mg PO DAILY #30 tab 06/07/19 11/13/21 Rx Elemental)] Folic Acid 1 mg PO DAILY 01/07/20 11/13/21 History traZODone HCL 50 mg PO HS PRN 01/07/20 11/13/21 History Ergocalciferol [Vitamin D2 (1250 1,250 mcg PO Q30D 10/30/20 11/13/21 History Mcg = 39444 Iu)] Naproxen 500 mg PO BID PRN 10/30/20 11/13/21 History Omeprazole 20 mg PO DAILY 03/02/21 11/13/21 History Magnesium Oxide [Mag-Ox] 400 mg PO BID #60 tab 04/03/21 11/13/21 Rx Thiamine [Vitamin B-1] 100 mg PO W/LUNCH 07/21/21 11/13/21 History Atorvastatin [Lipitor] 40 mg PO DAILY 30 Days #30 tab 07/25/21 11/13/21 Rx Cyclobenzaprine [Flexeril] 10 mg PO TID PRN #30 tab 07/25/21 11/13/21 Rx Sucralfate [Carafate] 1 gm PO AC-TID #90 tablet 07/25/21 11/13/21 Rx Losartan [Cozaar] 50 mg PO TID 09/23/21 11/13/21 History Metoprolol Succinate (ER) [Toprol 100 mg PO DAILY #30 09/26/21 11/13/21 Rx XL] Rivaroxaban [Xarelto] 20 mg PO DAILY #30 tab 10/14/21 11/13/21 Rx Allergies Allergy/AdvReac Type Severity Reaction Status Date / Time adhesive tape Allergy Rash/Hives Verified 11/13/21 20:41 latex Allergy Unknown Verified 11/13/21 20:41 egg AdvReac Nausea & Verified 11/13/21 20:41 Vomiting lisinopril AdvReac EYES Verified 11/13/21 20:41 BURN&ITCH/WEAKNESS tomato AdvReac Nausea & Verified 11/13/21 20:41 Vomiting & Diarrhea Physical Examination This is a pleasant 66-year-old male in no acute distress. He is alert and oriented 3. Exam of the left upper extremity reveals forward flexion to about 160 actively. Near full abduction. 45 of external rotation and internal rotation. No pain on palpation about the shoulder. Full elbow, wrist and finger motion. Neurovascular status to the upper extremity is intact. Remain ml of his musculoskeletal exam is unremarkable. Results X-rays of the left shoulder reveal a well-healed proximal humerus fracture in satisfactory position and alignment. Mild degenerative changes noted to the glenohumeral joint. - Labs Labs: Abnormal Lab Results - Last 24 Hours (Table) 11/14/21 11/14/21 11/14/21 Range/Units 05:19 16:36 20:57 WBC (3.8-10.6) k/uL RBC (4.30-5.90) m/uL Hgb (13.0-17.5) gm/dL Plt Count (150-450) k/uL Lymphocytes # (1.0-4.8) k/uL Potassium (3.5-5.1) mmol/L Glucose (74-99) mg/dL POC Glucose (mg/dL) 129 H 134 H (70-110) mg/dL Calcium (8.4-10.2) mg/dL Magnesium (1.6-2.3) mg/dL Total Bilirubin (0.2-1.3) mg/dL Unconjugated Bilirubin (0.0-1.1) mg/dL Delta Bilirubin (0.0-0.2) mg/dL AST (17-59) U/L Alkaline Phosphatase (38-126) U/L Procalcitonin 0.13 H (0.02-0.09) ng/mL 11/15/21 11/15/21 11/15/21 Range/Units 06:07 08:23 08:23 WBC 2.9 L (3.8-10.6) k/uL RBC 3.97 L (4.30-5.90) m/uL Hgb 12.7 L (13.0-17.5) gm/dL Plt Count 83 L (150-450) k/uL Lymphocytes # 0.7 L (1.0-4.8) k/uL Potassium 3.3 L (3.5-5.1) mmol/L Glucose 163 H (74-99) mg/dL POC Glucose (mg/dL) 114 H (70-110) mg/dL Calcium 8.1 L (8.4-10.2) mg/dL Magnesium 1.3 L (1.6-2.3) mg/dL Total Bilirubin 1.5 H (0.2-1.3) mg/dL Unconjugated Bilirubin 1.2 H (0.0-1.1) mg/dL Delta Bilirubin 0.3 H (0.0-0.2) mg/dL AST 75 H (17-59) U/L Alkaline Phosphatase 143 H (38-126) U/L Procalcitonin (0.02-0.09) ng/mL Microbiology - Last 24 Hours (Table) 11/14/21 02:10 Blood Culture - Preliminary Blood No Growth after 24 hours 11/14/21 02:00 Blood Culture - Preliminary Blood No Growth after 24 hours H & H 11/13/21 11/14/21 11/15/21 Range/Units 19:53 05:20 08:23 Hgb 11.1 L 10.9 L 12.7 L (13.0-17.5) gm/dL Hct 33.6 L 33.3 L 39.1 (39.0-53.0) % Coagulation 11/13/21 Range/Units 19:53 INR 1.1 (<1.2) Result Diagrams: 11/15/21 08:23 11/15/21 08:23 Assessment and Plan (1) Fracture of proximal humerus with routine healing Current Visit: Yes Status: Acute Code(s): S42.209D - UNSP FX UPPER END OF UNSP HUMERUS, SUBS FOR FX W ROUTN HEAL SNOMED Code(s): 012575338 (2) Diabetes Current Visit: No Status: Acute Code(s): E11.9 - TYPE 2 DIABETES MELLITUS WITHOUT COMPLICATIONS SNOMED Code(s): 19409668 (3) ETOH abuse Current Visit: No Status: Acute Code(s): F10.10 - ALCOHOL ABUSE, UNCOMPLICATED SNOMED Code(s): 05656943 Plan: The clinical and x-ray findings are discussed the patient. He is doing very well with his healed fracture. He is having very minimal limitation from the fracture. He may continue to use the arm with no restrictions.
[2021-11-15] MEDS: IPRATROPIUM-ALBUTEROL 3 ML NEB INHALATION SCH ×3 (11:51→20:06)
[2021-11-15 16:40] LABS: Glucose,Whole Blood 128 mg/dL (70-110)
[2021-11-15] MEDS: ACETAMINOPHEN TAB 325 MG TAB PO PRN (16:47)
--- NOTE | 2021-11-15 17:15 | P.PN ---
Subjective This is a pleasant 66 years old male with past medical history of Atrial Fibrillation, on Xarelto, COPD, CVA/TIA, Diabetes Mellitus, GERD/Reflux, Hearing Disorder / Deafness, Hyperlipidemia, Hypertension, Liver Disease,Pulmonary Embolus, Alcoholism, alcohol withdrawal DTs and possibly a seizure in 2018 r/t withdrawal, chronic alcoholic cirrhosis with portal hypertension and previous history of upper and lower GI bleeding, esophageal varices, chronic lower bilateral extremity ankle edema if he walks a lot, previous history of septicemia, cervical disc disease, chronic neck pain, chronic back pain with r sided sciatica, degenerative arthritis involving the lower back, scoliosis, tinnitus, vitamin D deficiency, iron anemia, chronic thrombocytopenia, Anxiety, Depression Patient presents because of dyspnea of one week duration which became more worse over yesterday associated with nausea but no vomiting. He has also dry cough. He reports chest pain about 10/10 and described a testosterone of bricks sitting on my chest, pain is nonradiating but the front and middle of the chest. He feels anxious and with trauma mostly from alcohol withdrawal His been constipated for 2 days. He denies any dysuria or urgency. He says when he tried to stand up he got dizziness. He denies smoking or illicit drugs but he states he drinks 1 point of liquor only one day before coming to the hospital. Also he states that he has not been eating well for 1 or 2 days Patient is hemodynamically stable and he is afebrile. Labs showing pancytopenia with WBC 2.5, hemoglobin 10.9, platelet count 84. INR is 1.1. BNP showing elevated creatinine 2.8 and 1.9, baseline 0.8 Magnesium low this morning at 1.4. Liver enzymes and bilirubin not significantly elevated. Lipase normal at 71. Urine analysis is negative and urine tox screen is negative. Serum alcohol was elevated to 37 upon admission. Influenza and Covid viruses are undetected Renal ultrasound: No masses or hydronephrosis CT of the head no acute intracranial process. Chest x-ray: Bilateral lower lobe airspace opacity correlates for pneumonia and/or aspiration EKG showed normal sinus rhythm at [address]-T changes In the emergency room patient received normal saline and ceftriaxone and Zithromax 11/15/2021 Patient still feels some chest tightness, however there is no evidence of cardiac disease per Change Consultant Also there is no evidence of pneumonia on CT of the chest therefore antibiotics were discontinued Patient denies history of smoking which make COPD unlikely added bronchodilator to help him with a breathing. Also he continued on Xarelto. Creatinine came down to 1.2 therefore we lowered his normal saline to 50 mL/h Also CT showing evidence of hepatic cirrhosis which explains thrombocytopenia and anemia workup of bone marrow suppression by alcoholic effect Objective - Vital Signs Vital signs: Vital Signs Temp 98.2 F 11/15/21 08:10 Pulse 91 11/15/21 12:00 Resp 16 11/15/21 12:00 BP 136/96 11/15/21 12:00 Pulse Ox 94 L 11/15/21 12:00 FiO2 Intake & Output 11/14/21 11/15/21 11/15/21 18:59 06:59 18:59 Intake Total 1000 240 Balance 1000 240 Weight 95.254 kg Intake: Oral 1000 240 Other: Voiding Method Toilet Toilet # Voids 2 # Bowel Movements 3 - Labs CBC & Chem 7: 11/15/21 08:23 11/15/21 08:23 Labs: Abnormal Lab Results - Last 24 Hours (Table) 11/14/21 11/14/21 11/14/21 Range/Units 05:19 16:36 20:57 WBC (3.8-10.6) k/uL RBC (4.30-5.90) m/uL Hgb (13.0-17.5) gm/dL Plt Count (150-450) k/uL Lymphocytes # (1.0-4.8) k/uL Potassium (3.5-5.1) mmol/L Glucose (74-99) mg/dL POC Glucose (mg/dL) 129 H 134 H (70-110) mg/dL Hemoglobin A1c (0.0-6.0) % Calcium (8.4-10.2) mg/dL Magnesium (1.6-2.3) mg/dL Total Bilirubin (0.2-1.3) mg/dL Unconjugated Bilirubin (0.0-1.1) mg/dL Delta Bilirubin (0.0-0.2) mg/dL AST (17-59) U/L Alkaline Phosphatase (38-126) U/L Procalcitonin 0.13 H (0.02-0.09) ng/mL 11/15/21 11/15/21 11/15/21 Range/Units 06:07 08:23 08:23 WBC 2.9 L (3.8-10.6) k/uL RBC 3.97 L (4.30-5.90) m/uL Hgb 12.7 L (13.0-17.5) gm/dL Plt Count 83 L (150-450) k/uL Lymphocytes # 0.7 L (1.0-4.8) k/uL Potassium (3.5-5.1) mmol/L Glucose (74-99) mg/dL POC Glucose (mg/dL) 114 H (70-110) mg/dL Hemoglobin A1c 6.5 H (0.0-6.0) % Calcium (8.4-10.2) mg/dL Magnesium (1.6-2.3) mg/dL Total Bilirubin (0.2-1.3) mg/dL Unconjugated Bilirubin (0.0-1.1) mg/dL Delta Bilirubin (0.0-0.2) mg/dL AST (17-59) U/L Alkaline Phosphatase (38-126) U/L Procalcitonin (0.02-0.09) ng/mL 11/15/21 11/15/21 Range/Units 08:23 11:25 WBC (3.8-10.6) k/uL RBC (4.30-5.90) m/uL Hgb (13.0-17.5) gm/dL Plt Count (150-450) k/uL Lymphocytes # (1.0-4.8) k/uL Potassium 3.3 L (3.5-5.1) mmol/L Glucose 163 H (74-99) mg/dL POC Glucose (mg/dL) 159 H (70-110) mg/dL Hemoglobin A1c (0.0-6.0) % Calcium 8.1 L (8.4-10.2) mg/dL Magnesium 1.3 L (1.6-2.3) mg/dL Total Bilirubin 1.5 H (0.2-1.3) mg/dL Unconjugated Bilirubin 1.2 H (0.0-1.1) mg/dL Delta Bilirubin 0.3 H (0.0-0.2) mg/dL AST 75 H (17-59) U/L Alkaline Phosphatase 143 H (38-126) U/L Procalcitonin (0.02-0.09) ng/mL Microbiology - Last 24 Hours (Table) 11/14/21 02:10 Blood Culture - Preliminary Blood No Growth after 24 hours 11/14/21 02:00 Blood Culture - Preliminary Blood No Growth after 24 hours Assessment and Plan Assessment: Alcohol intoxication and abuse at-risk of withdrawal Chest pain, noncardiac, cleared by [employer] consultant. No pneumonia on CT of the chest. Antibiotics stopped Hepatic cirrhosis Acute kidney injury, improved Altered mental status on admission most likely metabolic toxic encephalopathy, mostly due to alcohol intoxication Pancytopenia related to myelosuppression from alcoholism as well as cirrhosis Paroxysmal atrial fibrillation on Xarelto History of PE on Xarelto History of CVA/TIA COPD, no acute exacerbation Hearing difficulty in deafness Alcoholic liver disease and cirrhosis Esophageal varices and GI bleed Chronic lower extremity edema Chronic back pain and neck pain with right sided sciatica History of tinnitus History of anemia and thrombocytopenia History of depression and anxiety Plan: This is a pleasant 66 years old male who presents with chest pain and acute kidney injury and pulmonary infiltrates or opacities suspicious for bilateral pneumonia No pneumonia so antibiotics were stopped. Continue with IV fluids at lower rate 50 mL/h Follow-up vitamin B12 and hemoglobin A1c Continue with CIWA protocol and thiamine No evidence of active cardiac or pulmonary disease Labs and medication were reviewed.. Continue same treatment. Continue with symptomatic treatment. Resume home medication. Monitor lytes and vitals. DVT and GI prophylaxis. Further recommendations depends on the clinical course of the patient DVT prophylaxis: Xarelto GI Prophylaxis: Ppi PT/OT: Pending
[2021-11-15 20:27] LABS: Glucose,Whole Blood 195 mg/dL (70-110)
[2021-11-16] MEDS: ACETAMINOPHEN TAB 325 MG TAB PO PRN ×2 (04:37→17:08)
[2021-11-16] MEDS: guaiFENesin-DM 100-10MG/5ML 10 ML CUP PO SCH ×3 (04:39→17:08)
[2021-11-16 06:20] LABS: Glucose,Whole Blood 119 mg/dL (70-110)
[2021-11-16] MEDS: INSULIN ASPART (NovoLOG) 100 UNIT/ML VIAL SQ SCH ×4 (06:28→20:32)
[2021-11-16] MEDS: PANTOPRAZOLE 40 MG TABLET PO SCH (06:31)
[2021-11-16] MEDS: THIAMINE 100 MG TAB PO SCH ×2 (06:31→17:08)
[2021-11-16] MEDS: SUCRALFATE 1 GM TAB PO SCH ×3 (06:31→17:08)
[2021-11-16] MEDS: IPRATROPIUM-ALBUTEROL 3 ML NEB INHALATION SCH ×4 (07:08→19:21)
[2021-11-16 08:05] LABS: Basophils % (A) 0 %; Eosinophils # (A) 0.2 k/uL (0-0.7); Eosinophils % (A) 3 %; HCT 39.1 % (39.0-53.0); HGB 12.7 gm/dL (13.0-17.5); Lymphocytes # (A) 1.9 k/uL (1.0-4.8); Lymphocytes % (A) 32 %; MCH 31.5 pg (25.0-35.0); MCHC 32.4 g/dL (31.0-37.0); MCV 97.2 fL (80.0-100.0); Mean Platelet Volume 8.5; Monocytes # (A) 0.3 k/uL (0-1.0); Monocytes % (A) 5 %; Neutrophils # (A) 3.4 k/uL (1.3-7.7); Neutrophils % (A) 58 %; Platelet Count 102 k/uL (150-450); RBC 4.02 m/uL (4.30-5.90); RDW 14.2 % (11.5-15.5); WBC 5.8 k/uL (3.8-10.6)
[2021-11-16 08:16] LABS: Calcium 7.8 mg/dL (8.4-10.2); Magnesium 1.4 mg/dL (1.6-2.3); Potassium 3.3 mmol/L (3.5-5.1)
[2021-11-16] MEDS: amLODIPine 5 MG TAB PO SCH (09:04)
[2021-11-16] MEDS: MULTIVITAMINS, THERA 1 EACH TAB PO SCH (09:04)
[2021-11-16] MEDS: RIVAROXABAN 20 MG TAB PO SCH (09:04)
[2021-11-16] MEDS: MAGNESIUM OXIDE 400 MG TAB PO SCH ×2 (09:05→20:36)
[2021-11-16] MEDS: METOPROLOL SUCCINATE (ER) 100 MG TAB.ER.24H PO SCH (09:05)
[2021-11-16] MEDS: NYSTATIN 100,000 UNIT/GM POWD 15 GM TOPICAL SCH ×2 (09:05→20:34)
[2021-11-16] MEDS: FOLIC ACID 1 MG TAB PO SCH (09:05)
[2021-11-16] MEDS: ATORVASTATIN 40 MG TAB PO SCH (09:05)
[2021-11-16] MEDS ORDERED: Potassium Replacement Protocol 1 EACH MISC MISCELLANE PRN (09:07)
[2021-11-16] MEDS ORDERED: Magnesium Replacement Protocol 1 EACH MISC MISCELLANE PRN (09:08)
[2021-11-16] MEDS: MAGNESIUM SULFATE-D5W PMX 1 GM in DEXTROSE/WATER 1 100ML.BAG IVPB SCH ×3 (09:37→12:38)
[2021-11-16] MEDS: POTASSIUM CHLORIDE ER 20 MEQ TAB.ER PO SCH ×2 (09:38→09:40)
--- NOTE | 2021-11-16 09:48 | P.PN ---
Subjective Patient is seen in follow-up for acute kidney injury. Renal function improving with IV hydration. Denies chest pain or shortness of breath. Good urine output. No vomiting or diarrhea. Oral intake fair. No changes overnight. Vital signs are stable. General: Awake. No acute distress. HEENT: Head exam is unremarkable. LUNGS: Breath sounds decreased. HEART: Rate and Rhythm are regular. ABDOMEN: Soft, no distention. EXTREMITITES: No edema. Objective - Vital Signs Vital signs: Vital Signs Temp 98.0 F 11/16/21 08:33 Pulse 101 H 11/16/21 08:33 Resp 16 11/16/21 08:33 BP 147/84 11/16/21 08:33 Pulse Ox 95 11/16/21 08:33 FiO2 Intake & Output 11/15/21 11/16/21 11/16/21 18:59 06:59 18:59 Intake Total 358 Balance 358 Intake: Oral 358 Other: Voiding Method Toilet # Voids 1 1 # Bowel Movements 2 - Labs CBC & Chem 7: 11/16/21 07:36 11/16/21 07:36 Labs: Abnormal Lab Results - Last 24 Hours (Table) 11/15/21 11/15/21 11/15/21 Range/Units 08:23 11:25 16:38 RBC (4.30-5.90) m/uL Hgb (13.0-17.5) gm/dL Plt Count (150-450) k/uL Potassium (3.5-5.1) mmol/L Glucose (74-99) mg/dL POC Glucose (mg/dL) 159 H 128 H (70-110) mg/dL Hemoglobin A1c 6.5 H (0.0-6.0) % Calcium (8.4-10.2) mg/dL Magnesium (1.6-2.3) mg/dL 11/15/21 11/16/21 11/16/21 Range/Units 20:25 06:19 07:36 RBC (4.30-5.90) m/uL Hgb (13.0-17.5) gm/dL Plt Count (150-450) k/uL Potassium 3.3 L (3.5-5.1) mmol/L Glucose 126 H (74-99) mg/dL POC Glucose (mg/dL) 195 H 119 H (70-110) mg/dL Hemoglobin A1c (0.0-6.0) % Calcium 7.8 L (8.4-10.2) mg/dL Magnesium 1.4 L (1.6-2.3) mg/dL 11/16/21 Range/Units 07:36 RBC 4.02 L (4.30-5.90) m/uL Hgb 12.7 L (13.0-17.5) gm/dL Plt Count 102 L (150-450) k/uL Potassium (3.5-5.1) mmol/L Glucose (74-99) mg/dL POC Glucose (mg/dL) (70-110) mg/dL Hemoglobin A1c (0.0-6.0) % Calcium (8.4-10.2) mg/dL Magnesium (1.6-2.3) mg/dL Microbiology - Last 24 Hours (Table) 11/14/21 02:10 Blood Culture - Preliminary Blood No Growth after 48 hours 11/14/21 02:00 Blood Culture - Preliminary Blood No Growth after 48 hours Assessment and Plan Plan: Assessment: 1. Acute kidney injury mostly prerenal secondary to hypovolemia improving with IV hydration. Creatinine was 2.87 on admission and is 1.02 today. Questionable right hydronephrosis noted. No definitive obstruction. 2. Hypokalemia from poor intake and hypomagnesemia. 3. Hypomagnesemia from poor intake. 4. History of alcohol abuse. 5. Benign hypertension. Stable. Plan: Maintain normal saline at 50 mL an hour. Encourage oral intake. Potassium and magnesium being replaced.
--- NOTE | 2021-11-16 11:40 | P.PN ---
Subjective Progress Note Date: 11/16/21 I was asked to evaluate this patient. Consider pulmonary embolism. This patient has history of alcoholism. He was actively drinking alcohol even prior to his hospital admission. He is known to have a mild component of COPD, chronic liver disease, pancytopenia, remote history of pulmonary embolism and history of atrial fibrillation and the patient underwent anticoagulation with Xarelto. The patient has had previous alcohol withdrawal seizures. The patient is combination of liver disease including portal hypertension, history of GI bleeding secondary to esophageal variceal bleeding. The patient came in the hospital feeling weak, debilitated, dehydrated, he was also having some tightness in his chest. He was found to be in acute kidney injury. He was likely anxious. He is a nonsmoker in fact the patient states that he is a lifetime nonsmoker. For that reason, the patient came into the hospital. The chest x-ray was clear. The patient was found to be in acute kidney injury. Note that with hydration, the renal function gradually improved. Creatinine was as high as 2.87 and currently is down to 1.23. Most recent blood count shows a WBC of 2.9 with hemoglobin 12.7 and a platelet count of 83 all stable. The patient has sodium level of 139, BUN of 12 and a creatinine of 1.2. LFTs are normal. Calcium is at 8.1. Phosphorus is at 1.3 being replaced. The UA is negative. TSH is at 1.7. ProBNP level is 74. Urine drug screen was negative. Alcohol level was 239 at time of admission. COVID 19 testing was negative. The influenza screen was also negative. Noted the patient also had a CT of the chest today that showed some chronic post inflammatory/infectious changes and left lung. Otherwise there is no previous breast disease. No signs of any aspiration pneumonia. This was done without contrast. Currently is on room air oxygen with a pulse ox of 96%. 11/16/2021, patient is doing well. Chest tightness has improved. The patient is an DuoNeb nebulized treatments around the clock, no active pulmonary issues for now and the patient is doing well. No chest pain. Patient is currently on room air oxygen. Objective - Vital Signs Vital signs: Vital Signs Temp 98.0 F 11/16/21 08:33 Pulse 82 11/16/21 11:13 Resp 16 11/16/21 11:13 BP 147/84 11/16/21 08:33 Pulse Ox 95 11/16/21 08:33 FiO2 Intake & Output 11/15/21 11/16/21 11/16/21 18:59 06:59 18:59 Intake Total 358 Balance 358 Intake: Oral 358 Other: Voiding Method Toilet # Voids 1 1 # Bowel Movements 2 - Exam GENERAL: The patient is alert and oriented x3, not in any acute distress. Well developed, well nourished. Breathing is nonlabored and the patient is currently on room air oxygen. HEENT: Pupils are round and equally reacting to light. EOMI. No scleral icterus. No conjunctival pallor. Normocephalic, atraumatic. No pharyngeal erythema. No thyromegaly. CARDIOVASCULAR: S1 and S2 present. No murmurs, rubs, or gallops. -PULMONARY: Chest is clear to auscultation, no wheezing. No crackles. The patient has some limited amount of expiratory wheezes throughout the lung guadalupe bilaterally. ABDOMEN: Soft, nontender, nondistended, normoactive bowel sounds. No palpable organomegaly. MUSCULOSKELETAL: No joint swelling or deformity. -EXTREMITIES: No cyanosis, clubbing,. Mild pitting like edema NEUROLOGICAL: Gross neurological examination did not reveal any focal deficits. No signs of any delirium tremens. SKIN: No rashes. no petechiae. - Labs CBC & Chem 7: 11/16/21 07:36 11/16/21 07:36 Labs: Abnormal Lab Results - Last 24 Hours (Table) 11/15/21 11/15/21 11/15/21 Range/Units 08:23 16:38 20:25 RBC (4.30-5.90) m/uL Hgb (13.0-17.5) gm/dL Plt Count (150-450) k/uL Potassium (3.5-5.1) mmol/L Glucose (74-99) mg/dL POC Glucose (mg/dL) 128 H 195 H (70-110) mg/dL Hemoglobin A1c 6.5 H (0.0-6.0) % Calcium (8.4-10.2) mg/dL Magnesium (1.6-2.3) mg/dL 11/16/21 11/16/21 11/16/21 Range/Units 06:19 07:36 07:36 RBC 4.02 L (4.30-5.90) m/uL Hgb 12.7 L (13.0-17.5) gm/dL Plt Count 102 L (150-450) k/uL Potassium 3.3 L (3.5-5.1) mmol/L Glucose 126 H (74-99) mg/dL POC Glucose (mg/dL) 119 H (70-110) mg/dL Hemoglobin A1c (0.0-6.0) % Calcium 7.8 L (8.4-10.2) mg/dL Magnesium 1.4 L (1.6-2.3) mg/dL Microbiology - Last 24 Hours (Table) 11/14/21 02:10 Blood Culture - Preliminary Blood No Growth after 48 hours 11/14/21 02:00 Blood Culture - Preliminary Blood No Growth after 48 hours Assessment and Plan Plan: Chest tightness, nonspecific, could be anxiety. Limited wheezing was appreciated on today's exam. We'll provide this patient some DuoNeb neb around the clock. Cardiac evaluation has already been completed Alcoholism Acute alcohol intoxication at time of admission Chronic narcotic liver disease with complications related to alcoholism including pancytopenia, esophageal variceal bleed Chronic atrial fibrillation with a left ventricular dimension with Xarelto Previous history of pulmonary embolism, maintained on Xarelto Acute kidney injury, likely secondary to vascular volume depletion, improved Chronic anxiety/depression Hypertension Previous history of alcoholic seizures Previous history of TIA Plan Clinically stable Continue DuoNeb nebulized treatments around the clock Continue anticoagulation with Xarelto No concerns for aspiration pneumonia transfer delirium tremens We'll sign off
[2021-11-16 11:49] LABS: Glucose,Whole Blood 159 mg/dL (70-110)
[2021-11-16] MEDS: SODIUM CHLORIDE 0.9% 1,000 ML IV SCH (15:29)
[2021-11-16 16:55] LABS: Glucose,Whole Blood 113 mg/dL (70-110)
[2021-11-16 20:30] LABS: Glucose,Whole Blood 162 mg/dL (70-110)
--- NOTE | 2021-11-16 22:18 | P.PN ---
Subjective This is a pleasant 66 years old male with past medical history of Atrial Fibrillation, on Xarelto, COPD, CVA/TIA, Diabetes Mellitus, GERD/Reflux, Hearing Disorder / Deafness, Hyperlipidemia, Hypertension, Liver Disease,Pulmonary Embolus, Alcoholism, alcohol withdrawal DTs and possibly a seizure in 2018 r/t withdrawal, chronic alcoholic cirrhosis with portal hypertension and previous history of upper and lower GI bleeding, esophageal varices, chronic lower bilateral extremity ankle edema if he walks a lot, previous history of septicemia, cervical disc disease, chronic neck pain, chronic back pain with r sided sciatica, degenerative arthritis involving the lower back, scoliosis, tinnitus, vitamin D deficiency, iron anemia, chronic thrombocytopenia, Anxiety, Depression Patient presents because of dyspnea of one week duration which became more worse over yesterday associated with nausea but no vomiting. He has also dry cough. He reports chest pain about 10/10 and described a testosterone of bricks sitting on my chest, pain is nonradiating but the front and middle of the chest. He feels anxious and with trauma mostly from alcohol withdrawal His been constipated for 2 days. He denies any dysuria or urgency. He says when he tried to stand up he got dizziness. He denies smoking or illicit drugs but he states he drinks 1 point of liquor only one day before coming to the hospital. Also he states that he has not been eating well for 1 or 2 days Patient is hemodynamically stable and he is afebrile. Labs showing pancytopenia with WBC 2.5, hemoglobin 10.9, platelet count 84. INR is 1.1. BNP showing elevated creatinine 2.8 and 1.9, baseline 0.8 Magnesium low this morning at 1.4. Liver enzymes and bilirubin not significantly elevated. Lipase normal at 71. Urine analysis is negative and urine tox screen is negative. Serum alcohol was elevated to 37 upon admission. Influenza and Covid viruses are undetected Renal ultrasound: No masses or hydronephrosis CT of the head no acute intracranial process. Chest x-ray: Bilateral lower lobe airspace opacity correlates for pneumonia and/or aspiration EKG showed normal sinus rhythm at [address]-T changes In the emergency room patient received normal saline and ceftriaxone and Zithromax 11/15/2021 Patient still feels some chest tightness, however there is no evidence of cardiac disease per Real Estate Accountant Also there is no evidence of pneumonia on CT of the chest therefore antibiotics were discontinued Patient denies history of smoking which make COPD unlikely added bronchodilator to help him with a breathing. Also he continued on Xarelto. Creatinine came down to 1.2 therefore we lowered his normal saline to 50 mL/h Also CT showing evidence of hepatic cirrhosis which explains thrombocytopenia and anemia workup of bone marrow suppression by alcoholic effect 11/16/2021 Patient clinically is stable and improving gradually. No chest pain. No dyspnea. He is on room air. Hemodynamically stable Flow electrolytes been replaced per protocol Continue with see it [place] protocol family Objective - Vital Signs Vital signs: Vital Signs Temp 98.0 F 11/16/21 08:33 Pulse 101 H 11/16/21 08:33 Resp 16 11/16/21 08:33 BP 147/84 11/16/21 08:33 Pulse Ox 95 11/16/21 08:33 FiO2 Intake & Output 11/15/21 11/16/21 11/16/21 18:59 06:59 18:59 Intake Total 358 Balance 358 Intake: Oral 358 Other: Voiding Method Toilet # Voids 1 1 # Bowel Movements 2 - Exam GENERAL: The patient is alert and oriented x3, not in any acute distress. Well developed, well nourished. HEENT: Pupils are round and equally reacting to light. EOMI. No scleral icterus. No conjunctival pallor. Normocephalic, atraumatic. No pharyngeal erythema. No thyromegaly. CARDIOVASCULAR: S1 and S2 present. No murmurs, rubs, or gallops. PULMONARY: Chest is clear to auscultation, no wheezing or crackles. ABDOMEN: Soft, nontender, nondistended, normoactive bowel sounds. No palpable organomegaly. MUSCULOSKELETAL: No joint swelling or deformity. EXTREMITIES: No cyanosis, clubbing, or pedal edema. NEUROLOGICAL: Gross neurological examination did not reveal any focal deficits. SKIN: No rashes. no petechiae. - Labs CBC & Chem 7: 11/16/21 07:36 11/16/21 18:17 Labs: Abnormal Lab Results - Last 24 Hours (Table) 11/15/21 11/15/21 11/15/21 Range/Units 08:23 11:25 16:38 RBC (4.30-5.90) m/uL Hgb (13.0-17.5) gm/dL Plt Count (150-450) k/uL Potassium (3.5-5.1) mmol/L Glucose (74-99) mg/dL POC Glucose (mg/dL) 159 H 128 H (70-110) mg/dL Hemoglobin A1c 6.5 H (0.0-6.0) % Calcium (8.4-10.2) mg/dL Magnesium (1.6-2.3) mg/dL 11/15/21 11/16/21 11/16/21 Range/Units 20:25 06:19 07:36 RBC (4.30-5.90) m/uL Hgb (13.0-17.5) gm/dL Plt Count (150-450) k/uL Potassium 3.3 L (3.5-5.1) mmol/L Glucose 126 H (74-99) mg/dL POC Glucose (mg/dL) 195 H 119 H (70-110) mg/dL Hemoglobin A1c (0.0-6.0) % Calcium 7.8 L (8.4-10.2) mg/dL Magnesium 1.4 L (1.6-2.3) mg/dL 11/16/21 Range/Units 07:36 RBC 4.02 L (4.30-5.90) m/uL Hgb 12.7 L (13.0-17.5) gm/dL Plt Count 102 L (150-450) k/uL Potassium (3.5-5.1) mmol/L Glucose (74-99) mg/dL POC Glucose (mg/dL) (70-110) mg/dL Hemoglobin A1c (0.0-6.0) % Calcium (8.4-10.2) mg/dL Magnesium (1.6-2.3) mg/dL Microbiology - Last 24 Hours (Table) 11/14/21 02:10 Blood Culture - Preliminary Blood No Growth after 48 hours 11/14/21 02:00 Blood Culture - Preliminary Blood No Growth after 48 hours Assessment and Plan Assessment: Alcohol intoxication and abuse at-risk of withdrawal Chest pain, noncardiac, cleared by foxer. No pneumonia on CT of the chest. Antibiotics stopped Hepatic cirrhosis Acute kidney injury, improved Altered mental status on admission most likely metabolic toxic encephalopathy, mostly due to alcohol intoxication Pancytopenia related to myelosuppression from alcoholism as well as cirrhosis Paroxysmal atrial fibrillation on Xarelto History of PE on Xarelto History of CVA/TIA COPD, no acute exacerbation Hearing difficulty in deafness Alcoholic liver disease and cirrhosis Esophageal varices and GI bleed Chronic lower extremity edema Chronic back pain and neck pain with right sided sciatica History of tinnitus History of anemia and thrombocytopenia History of depression and anxiety Plan: This is a pleasant 66 years old male who presents with chest pain and acute kidney injury and pulmonary infiltrates or opacities suspicious for bilateral pneumonia No pneumonia so antibiotics were stopped. Continue with IV fluids at lower rate 50 mL/h Follow-up vitamin B12 and hemoglobin A1c Continue with CIWA protocol and thiamine No evidence of active cardiac or pulmonary disease Labs and medication were reviewed.. Continue same treatment. Continue with symptomatic treatment. Resume home medication. Monitor lytes and vitals. DVT and GI prophylaxis. Further recommendations depends on the clinical course of the patient DVT prophylaxis: Xarelto GI Prophylaxis: Ppi PT/OT: Pending
[2021-11-17] MEDS: guaiFENesin-DM 100-10MG/5ML 10 ML CUP PO SCH ×4 (00:05→16:14)
[2021-11-17] MEDS: LORazepam 1 MG TAB PO PRN (00:06)
[2021-11-17 06:21] LABS: Glucose,Whole Blood 186 mg/dL (70-110)
[2021-11-17] MEDS: PANTOPRAZOLE 40 MG TABLET PO SCH (06:51)
[2021-11-17] MEDS: THIAMINE 100 MG TAB PO SCH ×2 (06:51→16:14)
[2021-11-17] MEDS: INSULIN ASPART (NovoLOG) 100 UNIT/ML VIAL SQ SCH ×4 (06:51→20:42)
[2021-11-17] MEDS: SUCRALFATE 1 GM TAB PO SCH ×3 (06:51→16:14)
[2021-11-17] MEDS: IPRATROPIUM-ALBUTEROL 3 ML NEB INHALATION SCH ×4 (08:54→21:15)
[2021-11-17 09:04] LABS: African American GFR (CKD) >90 (>60 ml/min/1.73 sqM); Anion Gap 11 mmol/L; Blood Urea Nitrogen 9 mg/dL (9-20); Calcium 7.7 mg/dL (8.4-10.2); Carbon Dioxide 20 mmol/L (22-30); Chloride 107 mmol/L (98-107); Glucose 140 mg/dL (74-99); Magnesium 1.6 mg/dL (1.6-2.3); Non-African American GFR(CKD) >90 (>60 ml/min/1.73 sqM); Potassium 3.9 mmol/L (3.5-5.1); Sodium 138 mmol/L (137-145)
[2021-11-17] MEDS: MAGNESIUM OXIDE 400 MG TAB PO SCH ×2 (09:20→20:44)
[2021-11-17] MEDS: MULTIVITAMINS, THERA 1 EACH TAB PO SCH (09:20)
[2021-11-17] MEDS: NYSTATIN 100,000 UNIT/GM POWD 15 GM TOPICAL SCH ×2 (09:20→20:42)
[2021-11-17] MEDS: ATORVASTATIN 40 MG TAB PO SCH (09:20)
[2021-11-17] MEDS: METOPROLOL SUCCINATE (ER) 100 MG TAB.ER.24H PO SCH (09:20)
[2021-11-17] MEDS: amLODIPine 5 MG TAB PO SCH (09:20)
[2021-11-17] MEDS: FOLIC ACID 1 MG TAB PO SCH (09:20)
[2021-11-17] MEDS: RIVAROXABAN 20 MG TAB PO SCH (09:20)
--- NOTE | 2021-11-17 09:30 | P.PN ---
Subjective Patient is seen in follow-up for acute kidney injury. Renal function improving with IV hydration. Denies chest pain or shortness of breath. Good urine output. Did have dry heaving this morning. Also had 2 loose bowel movements overnight. Oral intake fair. Vital signs are stable. General: Awake. No acute distress. HEENT: Head exam is unremarkable. LUNGS: Breath sounds decreased. HEART: Rate and Rhythm are regular. ABDOMEN: Soft, no distention. EXTREMITITES: No edema. Objective - Vital Signs Vital signs: Vital Signs Temp 98.1 F 11/17/21 04:00 Pulse 88 11/17/21 09:07 Resp 18 11/17/21 04:00 BP 154/90 11/17/21 04:00 Pulse Ox 97 11/17/21 04:00 FiO2 Intake & Output 11/16/21 11/17/21 11/17/21 18:59 06:59 18:59 Intake Total 973 118 Balance 973 118 Intake: IV 500 Magnesium Sulfate-D5w Pmx 300 1 gm In Dextrose/Water 1 100ml.bag @ 100 mls/hr IVPB Q1H TANYA Rx#: [id number] Sodium Chloride 0.9% 1, 200 000 ml @ 50 mls/hr IV . Q20H TANYA Rx#:[id number] Oral 473 118 Other: Voiding Method Toilet # Voids 2 - Labs CBC & Chem 7: 11/16/21 07:36 11/17/21 07:57 Labs: Abnormal Lab Results - Last 24 Hours (Table) 11/16/21 11/16/21 11/16/21 Range/Units 11:47 16:51 20:29 Carbon Dioxide (22-30) mmol/L Glucose (74-99) mg/dL POC Glucose (mg/dL) 159 H 113 H 162 H (70-110) mg/dL Calcium (8.4-10.2) mg/dL 11/17/21 11/17/21 Range/Units 06:20 07:57 Carbon Dioxide 20 L (22-30) mmol/L Glucose 140 H (74-99) mg/dL POC Glucose (mg/dL) 186 H (70-110) mg/dL Calcium 7.7 L (8.4-10.2) mg/dL Microbiology - Last 24 Hours (Table) 11/14/21 02:10 Blood Culture - Preliminary Blood No Growth after 72 hours 11/14/21 02:00 Blood Culture - Preliminary Blood No Growth after 72 hours Assessment and Plan Plan: Assessment: 1. Acute kidney injury mostly prerenal secondary to hypovolemia improving with IV hydration. Creatinine was 2.87 on admission and is 0.89 today. Questionable right hydronephrosis noted. No definitive obstruction. 2. Hypokalemia from poor intake and hypomagnesemia. Better. 3. Hypomagnesemia from poor intake. Replace. Better. 4. History of alcohol abuse. 5. Benign hypertension. Stable. 6. Metabolic acidosis secondary to IV fluids and GI losses. Plan: Maintain normal saline at 50 mL an hour. Encourage oral intake. Replace magnesium.
[2021-11-17 11:59] LABS: Glucose,Whole Blood 120 mg/dL (70-110)
[2021-11-17] MEDS: MAGNESIUM SULFATE-D5W PMX 1 GM in DEXTROSE/WATER 1 100ML.BAG IVPB SCH ×2 (12:20→16:14)
[2021-11-17] MEDS: SODIUM CHLORIDE 0.9% 1,000 ML IV SCH (12:21)
--- NOTE | 2021-11-17 16:12 | P.PN ---
Subjective This is a pleasant 66 years old male with past medical history of Atrial Fibrillation, on Xarelto, COPD, CVA/TIA, Diabetes Mellitus, GERD/Reflux, Hearing Disorder / Deafness, Hyperlipidemia, Hypertension, Liver Disease,Pulmonary Embolus, Alcoholism, alcohol withdrawal DTs and possibly a seizure in 2018 r/t withdrawal, chronic alcoholic cirrhosis with portal hypertension and previous history of upper and lower GI bleeding, esophageal varices, chronic lower bilateral extremity ankle edema if he walks a lot, previous history of septicemia, cervical disc disease, chronic neck pain, chronic back pain with r sided sciatica, degenerative arthritis involving the lower back, scoliosis, tinnitus, vitamin D deficiency, iron anemia, chronic thrombocytopenia, Anxiety, Depression Patient presents because of dyspnea of one week duration which became more worse over yesterday associated with nausea but no vomiting. He has also dry cough. He reports chest pain about 10/10 and described a testosterone of bricks sitting on my chest, pain is nonradiating but the front and middle of the chest. He feels anxious and with trauma mostly from alcohol withdrawal His been constipated for 2 days. He denies any dysuria or urgency. He says when he tried to stand up he got dizziness. He denies smoking or illicit drugs but he states he drinks 1 point of liquor only one day before coming to the hospital. Also he states that he has not been eating well for 1 or 2 days Patient is hemodynamically stable and he is afebrile. Labs showing pancytopenia with WBC 2.5, hemoglobin 10.9, platelet count 84. INR is 1.1. BNP showing elevated creatinine 2.8 and 1.9, baseline 0.8 Magnesium low this morning at 1.4. Liver enzymes and bilirubin not significantly elevated. Lipase normal at 71. Urine analysis is negative and urine tox screen is negative. Serum alcohol was elevated to 37 upon admission. Influenza and Covid viruses are undetected Renal ultrasound: No masses or hydronephrosis CT of the head no acute intracranial process. Chest x-ray: Bilateral lower lobe airspace opacity correlates for pneumonia and/or aspiration EKG showed normal sinus rhythm at [address]-T changes In the emergency room patient received normal saline and ceftriaxone and Zithromax 11/15/2021 Patient still feels some chest tightness, however there is no evidence of cardiac disease per Airport [employer] Also there is no evidence of pneumonia on CT of the chest therefore antibiotics were discontinued Patient denies history of smoking which make COPD unlikely added bronchodilator to help him with a breathing. Also he continued on Xarelto. Creatinine came down to 1.2 therefore we lowered his normal saline to 50 mL/h Also CT showing evidence of hepatic cirrhosis which explains thrombocytopenia and anemia workup of bone marrow suppression by alcoholic effect 11/16/2021 Patient clinically is stable and improving gradually. No chest pain. No dyspnea. He is on room air. Hemodynamically stable Flow electrolytes been replaced per protocol Continue with see it [place] protocol family [id number] Patient clinically improving, his chest tightness improving. Hemodynamically stable. Labs are reviewed. Abdomen soft on CIWA protocol on home dose of Xarelto. Distal normal saline 50 mL per hour Objective - Vital Signs Vital signs: Vital Signs Temp 98.5 F 11/17/21 09:20 Pulse 96 11/17/21 09:20 Resp 16 11/17/21 09:20 BP 131/82 11/17/21 09:20 Pulse Ox 94 L 11/17/21 09:20 FiO2 Intake & Output 11/16/21 11/17/21 11/17/21 18:59 06:59 18:59 Intake Total 973 118 Balance 973 118 Intake: IV 500 Magnesium Sulfate-D5w Pmx 300 1 gm In Dextrose/Water 1 100ml.bag @ 100 mls/hr IVPB Q1H [facility] Rx#: [id number] Sodium Chloride 0.9% 1, 200 000 ml @ 50 mls/hr IV . Q20H [facility] Rx#:[id number] Oral 473 118 Other: Voiding Method Toilet Toilet # Voids 2 - Exam GENERAL: The patient is alert and oriented x3, not in any acute distress. Well developed, well nourished. HEENT: Pupils are round and equally reacting to light. EOMI. No scleral icterus. No conjunctival pallor. Normocephalic, atraumatic. No pharyngeal erythema. No thyromegaly. CARDIOVASCULAR: S1 and S2 present. No murmurs, rubs, or gallops. PULMONARY: Chest is clear to auscultation, no wheezing or crackles. ABDOMEN: Soft, nontender, nondistended, normoactive bowel sounds. No palpable organomegaly. MUSCULOSKELETAL: No joint swelling or deformity. EXTREMITIES: No cyanosis, clubbing, or pedal edema. NEUROLOGICAL: Gross neurological examination did not reveal any focal deficits. SKIN: No rashes. no petechiae. - Labs CBC & Chem 7: 11/16/21 07:36 11/17/21 07:57 Labs: Abnormal Lab Results - Last 24 Hours (Table) 11/16/21 11/16/21 11/16/21 Range/Units 11:47 16:51 20:29 Carbon Dioxide (22-30) mmol/L Glucose (74-99) mg/dL POC Glucose (mg/dL) 159 H 113 H 162 H (70-110) mg/dL Calcium (8.4-10.2) mg/dL 11/17/21 11/17/21 Range/Units 06:20 07:57 Carbon Dioxide 20 L (22-30) mmol/L Glucose 140 H (74-99) mg/dL POC Glucose (mg/dL) 186 H (70-110) mg/dL Calcium 7.7 L (8.4-10.2) mg/dL Microbiology - Last 24 Hours (Table) 11/14/21 02:10 Blood Culture - Preliminary Blood No Growth after 72 hours 11/14/21 02:00 Blood Culture - Preliminary Blood No Growth after 72 hours Assessment and Plan Assessment: Alcohol intoxication and abuse at-risk of withdrawal Chest pain, noncardiac, cleared by esthetician and manager medical spa. No pneumonia on CT of the chest. Antibiotics stopped Hepatic cirrhosis Acute kidney injury, improved Altered mental status on admission most likely metabolic toxic encephalopathy, mostly due to alcohol intoxication Pancytopenia related to myelosuppression from alcoholism as well as cirrhosis Paroxysmal atrial fibrillation on Xarelto History of PE on Xarelto History of CVA/TIA COPD, no acute exacerbation Hearing difficulty in deafness Alcoholic liver disease and cirrhosis Esophageal varices and GI bleed Chronic lower extremity edema Chronic back pain and neck pain with right sided sciatica History of tinnitus History of anemia and thrombocytopenia History of depression and anxiety Plan: This is a pleasant 66 years old male who presents with chest pain and acute kidney injury and pulmonary infiltrates or opacities suspicious for bilateral pneumonia No pneumonia so antibiotics were stopped. Continue with IV fluids at lower rate 50 mL/h Follow-up vitamin B12 and hemoglobin A1c Continue with CIWA protocol and thiamine No evidence of active cardiac or pulmonary disease Labs and medication were reviewed.. Continue same treatment. Continue with symptomatic treatment. Resume home medication. Monitor lytes and vitals. DVT and GI prophylaxis. Further recommendations depends on the clinical course of the patient DVT prophylaxis: Xarelto GI Prophylaxis: Ppi PT/OT: Pending
[2021-11-17 16:28] LABS: Glucose,Whole Blood 146 mg/dL (70-110)
[2021-11-17 20:16] LABS: Glucose,Whole Blood 121 mg/dL (70-110)
[2021-11-18] MEDS: guaiFENesin-DM 100-10MG/5ML 10 ML CUP PO SCH ×5 (01:20→23:57)
[2021-11-18 06:02] LABS: Glucose,Whole Blood 112 mg/dL (70-110)
[2021-11-18] MEDS: INSULIN ASPART (NovoLOG) 100 UNIT/ML VIAL SQ SCH ×4 (06:26→21:40)
[2021-11-18] MEDS: PANTOPRAZOLE 40 MG TABLET PO SCH (06:34)
[2021-11-18] MEDS: THIAMINE 100 MG TAB PO SCH ×2 (06:34→16:38)
[2021-11-18] MEDS: SUCRALFATE 1 GM TAB PO SCH ×3 (06:34→16:38)
[2021-11-18] MEDS: ONDANSETRON 4 MG/2 ML VIAL IVP PRN (06:34)
[2021-11-18] MEDS: SODIUM CHLORIDE 0.9% 1,000 ML IV SCH (06:41)
[2021-11-18] MEDS: IPRATROPIUM-ALBUTEROL 3 ML NEB INHALATION SCH ×4 (08:00→20:05)
[2021-11-18 08:02] LABS: African American GFR (CKD) >90 (>60 ml/min/1.73 sqM); Anion Gap 11 mmol/L; Blood Urea Nitrogen 10 mg/dL (9-20); Calcium 7.8 mg/dL (8.4-10.2); Carbon Dioxide 19 mmol/L (22-30); Chloride 109 mmol/L (98-107); Glucose 112 mg/dL (74-99); Magnesium 1.8 mg/dL (1.6-2.3); Non-African American GFR(CKD) 85 (>60 ml/min/1.73 sqM); Sodium 139 mmol/L (137-145)
[2021-11-18] MEDS: NYSTATIN 100,000 UNIT/GM POWD 15 GM TOPICAL SCH ×2 (08:56→21:48)
[2021-11-18] MEDS: MAGNESIUM OXIDE 400 MG TAB PO SCH ×2 (08:56→21:48)
[2021-11-18] MEDS: RIVAROXABAN 20 MG TAB PO SCH (08:56)
[2021-11-18] MEDS: METOPROLOL SUCCINATE (ER) 100 MG TAB.ER.24H PO SCH (08:56)
[2021-11-18] MEDS: FOLIC ACID 1 MG TAB PO SCH (08:56)
[2021-11-18] MEDS: amLODIPine 5 MG TAB PO SCH (08:56)
[2021-11-18] MEDS: MULTIVITAMINS, THERA 1 EACH TAB PO SCH (08:56)
[2021-11-18] MEDS: ATORVASTATIN 40 MG TAB PO SCH (08:56)
--- NOTE | 2021-11-18 10:47 | P.PN ---
Subjective Patient is seen in follow-up for acute kidney injury. Renal function improved with IV hydration. Denies chest pain or shortness of breath. Good urine output. Still having dry heaves. No diarrhea. Oral intake fair. Vital signs are stable. General: Awake. No acute distress. HEENT: Head exam is unremarkable. LUNGS: Breath sounds decreased. HEART: Rate and Rhythm are regular. ABDOMEN: Soft, no distention. EXTREMITITES: No edema. Objective - Vital Signs Vital signs: Vital Signs Temp 98.8 F 11/18/21 08:55 Pulse 79 11/18/21 08:55 Resp 16 11/18/21 08:55 BP 143/84 11/18/21 08:55 Pulse Ox 98 11/18/21 08:55 FiO2 Intake & Output 11/17/21 11/18/21 11/18/21 18:59 06:59 18:59 Intake Total 1284 240 120 Balance 1284 240 120 Intake: IV 350 Sodium Chloride 0.9% 1, 350 000 ml @ 50 mls/hr IV . Q20H [facility] Rx#:[id number] Intake, IV Titration 100 Amount Magnesium Sulfate-D5w Pmx 100 1 gm In Dextrose/Water 1 100ml.bag @ 100 mls/hr IVPB Q1H [facility] Rx#: [id number] Oral 834 240 120 Other: Voiding Method Toilet Toilet # Voids 1 2 - Labs CBC & Chem 7: 11/16/21 07:36 11/18/21 05:56 Labs: Abnormal Lab Results - Last 24 Hours (Table) 11/17/21 11/17/21 11/17/21 Range/Units 11:57 16:26 20:15 Chloride (98-107) mmol/L Carbon Dioxide (22-30) mmol/L Glucose (74-99) mg/dL POC Glucose (mg/dL) 120 H 146 H 121 H (70-110) mg/dL Calcium (8.4-10.2) mg/dL 11/18/21 11/18/21 Range/Units 05:56 06:00 Chloride 109 H (98-107) mmol/L Carbon Dioxide 19 L (22-30) mmol/L Glucose 112 H (74-99) mg/dL POC Glucose (mg/dL) 112 H (70-110) mg/dL Calcium 7.8 L (8.4-10.2) mg/dL Microbiology - Last 24 Hours (Table) 11/14/21 02:10 Blood Culture - Preliminary Blood No Growth after 96 hours 11/14/21 02:00 Blood Culture - Preliminary Blood No Growth after 96 hours Assessment and Plan Plan: Assessment: 1. Acute kidney injury mostly prerenal secondary to hypovolemia improving with IV hydration. Creatinine was 2.87 on admission and is 0.94 today. Questionable right hydronephrosis noted. No definitive obstruction. 2. Hypokalemia from poor intake and hypomagnesemia. Better. 3. Hypomagnesemia from poor intake. Replaced. Better. 4. History of alcohol abuse. 5. Benign hypertension. Stable. 6. Metabolic acidosis secondary to IV fluids and GI losses. Plan: Hep-Lock IV fluids. Encouraged oral intake.
[2021-11-18 11:41] LABS: Glucose,Whole Blood 121 mg/dL (70-110)
[2021-11-18 16:18] LABS: Glucose,Whole Blood 115 mg/dL (70-110)
--- NOTE | 2021-11-18 19:07 | PN ---
PROGRESS NOTE DATE OF SERVICE: 11/17/2021. CHIEF COMPLAINT: Chest pain and abdominal pain. HISTORY OF PRESENT ILLNESS: This gentleman is doing fairly well. Apparently he came in while I was out of town for his usual complaints of hypertension, chest pain and possible alcohol abuse. He is doing better now. PHYSICAL EXAMINATION: His vital signs are normal. Chest is clear and cardiac exam is normal. Abdomen is slightly protuberant, soft and nontender. IMPRESSION: 1. Uncontrolled hypertension. 2. Chest pain. 3. Chronic alcoholism. PLAN: Increase his activity and reassess vital signs and laboratory studies and probably home in the next day or two. MMODL / IJN: [id number] /
[2021-11-18 20:34] LABS: Glucose,Whole Blood 121 mg/dL (70-110)
[2021-11-19 05:12] VITALS: RESP 16
[2021-11-19] MEDS: guaiFENesin-DM 100-10MG/5ML 10 ML CUP PO SCH ×2 (05:18→12:09)
[2021-11-19 05:49] LABS: Calcium 8.4 mg/dL (8.4-10.2); Magnesium 1.8 mg/dL (1.6-2.3); Potassium 3.7 mmol/L (3.5-5.1)
[2021-11-19 07:11] LABS: Glucose,Whole Blood 102 mg/dL (70-110)
[2021-11-19] MEDS: IPRATROPIUM-ALBUTEROL 3 ML NEB INHALATION SCH ×3 (07:37→15:01)
[2021-11-19] MEDS: INSULIN ASPART (NovoLOG) 100 UNIT/ML VIAL SQ SCH ×2 (07:58→12:56)
[2021-11-19] MEDS: MAGNESIUM OXIDE 400 MG TAB PO SCH (08:11)
[2021-11-19] MEDS: amLODIPine 5 MG TAB PO SCH (08:11)
[2021-11-19] MEDS: MULTIVITAMINS, THERA 1 EACH TAB PO SCH (08:11)
[2021-11-19] MEDS: ATORVASTATIN 40 MG TAB PO SCH (08:11)
[2021-11-19] MEDS: PANTOPRAZOLE 40 MG TABLET PO SCH (08:11)
[2021-11-19] MEDS: THIAMINE 100 MG TAB PO SCH (08:11)
[2021-11-19] MEDS: SUCRALFATE 1 GM TAB PO SCH ×2 (08:11→12:09)
[2021-11-19] MEDS: FOLIC ACID 1 MG TAB PO SCH (08:11)
[2021-11-19] MEDS: NYSTATIN 100,000 UNIT/GM POWD 15 GM TOPICAL SCH (08:14)
[2021-11-19] MEDS: RIVAROXABAN 20 MG TAB PO SCH (08:47)
[2021-11-19] MEDS: METOPROLOL SUCCINATE (ER) 100 MG TAB.ER.24H PO SCH (08:47)
[2021-11-19 11:00] LABS: Glucose,Whole Blood 156 mg/dL (70-110)
[2021-11-19 11:49] VITALS: BP 116/75; TEMP 98.1
[2021-11-19 15:04] VITALS: PULSE 68
--- NOTE | 2021-11-19 19:17 | DS ---
DISCHARGE SUMMARY CHIEF COMPLAINT: Acute alcohol intoxication, chronic alcoholism, uncontrolled hypertension, and dehydration. HISTORY OF PRESENT ILLNESS AND PHYSICAL EXAMINATION: Details of this man's history and physical can be found in the initial workup. LABORATORY STUDIES: While he was in the hospital, he had laboratory studies, details of which can be found in the laboratory section of his chart. COURSE IN THE HOSPITAL: After admission, he was placed on bedrest and started on intravenous fluids and CIWA protocol. Blood pressure is brought under good control. He was doing well and it was felt that he could be discharged on the sixth and he will go home on her usual activity and, diet, medication and was admonished not to drink. FINAL DIAGNOSES: 1. Acute alcohol intoxication. 2. Hypertension. 3. Chronic alcoholism. 4. Dehydration. OPERATIONS: None. CONSULTATIONS: None. He is improved. ROCIO / MICHAEL: [id number] /
--- NOTE | 2021-11-21 19:34 | PN ---
PROGRESS NOTE DATE OF SERVICE: 11/18/2021 CHIEF COMPLAINT: Acute alcohol intoxication, chest pain and uncontrolled hypertension. HISTORY OF PRESENT ILLNESS: This gentleman is doing well. Chest pain has resolved. He is still somewhat tremulous. PHYSICAL EXAMINATION: Chest is clear. Cardiac exam is normal. Abdomen is soft, nontender. IMPRESSION: 1. Acute alcohol intoxication. 2. Chronic alcoholism. 3. Delirium tremens. 4. Hypertension. 5. Chest pain. PLAN: Increase activity and diet and probably discharge in the next day or two. MMODL / IJN: [id number] /
== END 2021-11-19 17:12 | disposition home or self-care (01) | DRG 896 ==
LOC: EC 19:00 → 3SCARD 21:20 → 5NMEDONC 11-19 00:57
PROVIDERS: ADMIT Family Medicine; ATTEND Family Medicine
PROC: HZ2ZZZZ Detoxification Services for Substance Abuse Treatment (ICD-10-PCS; principal; 2021-11-14)
DX: F10.229 Alcohol dependence with intoxication, unspecified (principal); G92.8 Other toxic encephalopathy; J18.9 Pneumonia, unspecified organism; D61.818 Other pancytopenia; E87.2 Acidosis; I48.20 Chronic atrial fibrillation, unspecified; I85.10 Secondary esophageal varices without bleeding; K76.6 Portal hypertension; N17.9 Acute kidney failure, unspecified; J44.0 Chronic obstructive pulmonary disease with (acute) lower respiratory infection; Z20.822 Contact with and (suspected) exposure to COVID-19; F10.239 Alcohol dependence with withdrawal, unspecified; D69.6 Thrombocytopenia, unspecified; E55.9 Vitamin D deficiency, unspecified; M50.30 Other cervical disc degeneration, unspecified cervical region; M54.9 Dorsalgia, unspecified; E86.9 Volume depletion, unspecified; R07.89 Other chest pain; S42.209D Unspecified fracture of upper end of unspecified humerus, subsequent encounter for fracture with routine healing; Y90.7 Blood alcohol level of 200-239 mg/100 ml; E11.9 Type 2 diabetes mellitus without complications; E78.5 Hyperlipidemia, unspecified; E83.42 Hypomagnesemia; E86.0 Dehydration; E86.1 Hypovolemia; E87.6 Hypokalemia; F32.A Depression, unspecified; F41.9 Anxiety disorder, unspecified; G89.29 Other chronic pain; H91.90 Unspecified hearing loss, unspecified ear; K57.90 Diverticulosis of intestine, part unspecified, without perforation or abscess without bleeding; I10 Essential (primary) hypertension; I25.10 Atherosclerotic heart disease of native coronary artery without angina pectoris; M54.31 Sciatica, right side; I48.0 Paroxysmal atrial fibrillation; K59.00 Constipation, unspecified; K70.30 Alcoholic cirrhosis of liver without ascites; D50.9 Iron deficiency anemia, unspecified; M41.9 Scoliosis, unspecified; R04.0 Epistaxis; Z79.01 Long term (current) use of anticoagulants; Z79.899 Other long term (current) drug therapy; Z82.3 Family history of stroke; I95.9 Hypotension, unspecified; Z82.5 Family history of asthma and other chronic lower respiratory diseases; Z86.711 Personal history of pulmonary embolism; M25.512 Pain in left shoulder; M51.37 Other intervertebral disc degeneration, lumbosacral region; H93.19 Tinnitus, unspecified ear; Z86.73 Personal history of transient ischemic attack (TIA), and cerebral infarction without residual deficits; Z88.8 Allergy status to other drugs, medicaments and biological substances; Z91.048 Other nonmedicinal substance allergy status; Z91.02 Food additives allergy status; Z91.012 Allergy to eggs; Z91.040 Latex allergy status; Z90.49 Acquired absence of other specified parts of digestive tract; Z86.14 Personal history of Methicillin resistant Staphylococcus aureus infection; Z87.19 Personal history of other diseases of the digestive system; Z71.41 Alcohol abuse counseling and surveillance of alcoholic; Z91.018 Allergy to other foods
CPT/HCPCS: 36415; 70450; 71045; 71250; 76770; 80048; 80053; 80076; 80306; 80320; 81003; 82140; 82570; 82607; 82746; 83036; 83605; 83690; 83735; 83880; 84100; 84132; 84145; 84300; 84443; 84484; 85025; 85610; 85730; 87040; 87502; 87635; 93005; 94640; 94760

== ENCOUNTER 2022-01-15 21:21 | Inpatient (IN) | payer MEDICARE, OTHER ==
[2022-01-15] MEDS ORDERED: SODIUM CHLORIDE 0.9% 500 ML 500 ML IV STA (21:27)
[2022-01-15] MEDS ORDERED: methylPREDNISolone SOD SUCCI 125 MG/2 ML VIAL IV STA (21:27)
[2022-01-15] MEDS ORDERED: SODIUM CHLORIDE 0.9% 1,000 ML IV STA ×3 (21:27→22:23)
--- NOTE | 2022-01-15 21:31 | ED ---
SOB HPI - General Stated Complaint: CHARLY Time Seen by Provider: 01/15/22 21:23 Source: patient, EMS, RN notes reviewed, old records reviewed Mode of arrival: EMS - History of Present Illness Initial Comments: 66-year-old male with a history of COPD also history of alcohol abuse mother medical issues who was brought in by EMS today because of shortness of breath which began approximately 1 hour prior to arrival. Complains of some palpitations no overt chest pain no fevers chills or sweats reported. Current complaints or modifying factors MD Complaint: shortness of breath - Related Data Home Medications Medication Instructions Recorded Confirmed Folic Acid 1 mg PO DAILY 01/07/20 11/13/21 traZODone HCL 50 mg PO HS PRN 01/07/20 11/13/21 Ergocalciferol [Vitamin D2 (1250 1,250 mcg PO Q30D 10/30/20 11/13/21 Mcg = 90235 Iu)] Naproxen 500 mg PO BID PRN 10/30/20 11/13/21 Omeprazole 20 mg PO DAILY 03/02/21 11/13/21 Thiamine [Vitamin B-1] 100 mg PO W/LUNCH 07/21/21 11/13/21 Losartan [Cozaar] 50 mg PO TID 09/23/21 11/13/21 Previous Rx's Medication Instructions Recorded Ferrous Sulfate [Iron (65 MG 325 mg PO DAILY #30 tab 06/07/19 Elemental)] Magnesium Oxide [Mag-Ox] 400 mg PO BID #60 tab 04/03/21 Atorvastatin [Lipitor] 40 mg PO DAILY 30 Days #30 tab 07/25/21 Cyclobenzaprine [Flexeril] 10 mg PO TID PRN #30 tab 07/25/21 Sucralfate [Carafate] 1 gm PO AC-TID #90 tablet 07/25/21 Metoprolol Succinate (ER) [Toprol 100 mg PO DAILY #30 09/26/21 XL] Rivaroxaban [Xarelto] 20 mg PO DAILY #30 tab 10/14/21 Ipratropium-Albuterol Nebulize 3 ml INHALATION QID 30 Days #360 ml 11/19/21 [Duoneb 0.5 mg-3 mg/3 ml Soln] amLODIPine [Norvasc] 5 mg PO DAILY #30 tab 07/06/22 Allergies Allergy/AdvReac Type Severity Reaction Status Date / Time adhesive tape Allergy Rash/Hives Verified 01/15/22 21:31 latex Allergy Unknown Verified 01/15/22 21:31 egg AdvReac Nausea & Verified 01/15/22 21:31 Vomiting lisinopril AdvReac EYES Verified 01/15/22 21:31 BURN&ITCH/WEAKNESS tomato AdvReac Nausea & Verified 01/15/22 21:31 Vomiting & Diarrhea Review of Systems ROS Statement: Those systems with pertinent positive or pertinent negative responses have been documented in the HPI. ROS Other: All systems not noted in ROS Statement are negative. Past Medical History Past Medical History: Atrial Fibrillation, Chest Pain / Angina, COPD, CVA/TIA, Diabetes Mellitus, GERD/Reflux, GI Bleed, Hearing Disorder / Deafness, Hyperlipidemia, Hypertension, Liver Disease, Pneumonia, Prostate Disorder, Pulmonary Embolus (PE) Additional Past Medical History / Comment(s): Pt recently hospitalized at [facility] with pneumonia. Other hx: GI bleed/ esophageal varicies banded. Other hx: Alcoholism, alcohol withdrawal DTs and possibly a seizure in 2017 r/t withdrawal, chronic alcoholic cirrhosis with portal hypertension and previous history of upper and lower GI bleeding, esophageal varices, previous history of childhood seizure which he outgrew not taking any antiepileptic medication, pulm onary embolism x 2 R lung, TIA, diverticulosis, chronic lower bilateral extremity ankle edema if he walks a lot, previous history of septicemia, cervical disc disease, chronic neck pain, chronic back pain with r sided sciatica, degenerative arthritis involving the lower back, scoliosis, tinnitus, vitamin D deficiency, iron anemia, chronic thrombocytopenia, denies MRSA, C-DIFF History of Any Multi-Drug Resistant Organisms: MRSA Date of last positivie culture/infection: 03/17/18 MDRO Source:: stomach Past Surgical History: Appendectomy, Cholecystectomy Additional Past Surgical History / Comment(s): EGDs/esophageal varicies bandings, colonoscopies. Past Anesthesia/Blood Transfusion Reactions: No Reported Reaction Additional Past Anesthesia/Blood Transfusion Reaction / Comment(s): after appendix removed sob Past Psychological History: Anxiety, Depression Smoking Status: Never smoker Past Alcohol Use History: Occasional Past Drug Use History: None Reported - Past Family History Mother Family Medical History: COPD, CVA/TIA, Dementia Additional Family Medical History / Comment(s): from a stroke Father Family Medical History: Pneumonia Additional Family Medical History / Comment(s): Father of pneumonia when he was close to 80 yrs old. General Exam - General Exam Comments Initial Comments: This is a well-developed well-nourished awake alert oriented times 4 male General appearance: alert, anxious Head exam: Present: atraumatic, normocephalic, normal inspection Eye exam: Present: normal appearance, PERRL, EOMI. Absent: scleral icterus, conjunctival injection, periorbital swelling ENT exam: Present: mucous membranes dry Neck exam: Present: normal inspection, full ROM, other (No surgery or bruits). Absent: tenderness, meningismus, lymphadenopathy Respiratory exam: Present: wheezes (Basilar), decreased breath sounds. Absent: respiratory distress, rales, rhonchi, stridor Cardiovascular Exam: Present: normal rhythm, tachycardia, normal heart sounds. Absent: systolic murmur, diastolic murmur, rubs, gallop, clicks GI/Abdominal exam: Present: soft, normal bowel sounds. Absent: distended, tenderness, guarding, rebound, rigid Extremities exam: Present: normal inspection, full ROM, normal capillary refill. Absent: tenderness, pedal edema, joint swelling, calf tenderness Back exam: Present: normal inspection Neurological exam: Present: alert, oriented X3, CN II-XII intact Psychiatric exam: Present: normal affect, normal mood Skin exam: Present: warm, dry, intact, normal color. Absent: rash Course Vital Signs 01/15/22 01/15/22 01/15/22 21:28 23:24 23:44 Temperature 98.3 F Pulse Rate 151 H 141 H 140 H Respiratory 24 20 19 Rate Blood Pressure 140/96 207/133 O2 Sat by Pulse 93 L 94 L 94 L Oximetry - Reevaluation(s) Reevaluation #1: 01/15/22 23:01 Patient's heart rate is responding to fluids heart rate now 137 patient resting comfortably breathing improved. Patient will get a CT due to the elevated d- dimer. Reevaluation #2: 01/16/22 00:00 Patient's heart rate was elevated again he did get IV Lopressor as well as additional fluids patient's heart rate has slowed down but does appear to be consistent with A. fib which patient has a history of. The initial EKG was not definitive for atrial flutter. Reevaluation #3: 01/16/22 00:09 Repeat EKG shows sinus tachycardia rate 114 174 QRS duration 76 QT/QTC 3:30/398 LVH before was nonproductive this is improved from the earlier EKG and findings thereof. Reevaluation #4: 01/16/22 00:10 Elevate lactic acid appears be secondary to viral depletion has no infectious processes identified. Medical Decision Making - Medical Decision Making I did discuss findings with the patient as well as Dr. Beck the patient will be admitted for inpatient evaluation and treatment. - Lab Data Result diagrams: 01/15/22 21:45 01/15/22 21:45 Lab Results 01/15/22 01/15/22 01/15/22 Range/Units 21:45 21:45 21:45 WBC 8.5 (3.8-10.6) k/uL RBC 4.95 (4.30-5.90) m/uL Hgb 15.2 (13.0-17.5) gm/dL Hct 47.9 (39.0-53.0) % MCV 96.8 (80.0-100.0) fL MCH 30.8 (25.0-35.0) pg MCHC 31.8 (31.0-37.0) g/dL RDW 16.2 H (11.5-15.5) % Plt Count 145 L (150-450) k/uL MPV 8.0 Neutrophils % 61 % Lymphocytes % 31 % Monocytes % 5 % Eosinophils % 1 % Basophils % 1 % Neutrophils # 5.1 (1.3-7.7) k/uL Lymphocytes # 2.6 (1.0-4.8) k/uL Monocytes # 0.4 (0-1.0) k/uL Eosinophils # 0.1 (0-0.7) k/uL Basophils # 0.1 (0-0.2) k/uL Anisocytosis Slight PT 12.4 H (9.0-12.0) sec INR 1.2 H (<1.2) APTT 20.6 L (22.0-30.0) sec D-Dimer 2.74 H (<0.60) mg/L FEU Sodium 148 H (137-145) mmol/L Potassium 5.1 (3.5-5.1) mmol/L Chloride 109 H (98-107) mmol/L Carbon Dioxide 19 L (22-30) mmol/L Anion Gap 20 mmol/L BUN 11 (9-20) mg/dL Creatinine 1.28 H (0.66-1.25) mg/dL Est GFR (CKD-EPI)AfAm 68 (>60 ml/min/1.73 sqM) Est GFR (CKD-EPI)NonAf 58 (>60 ml/min/1.73 sqM) Glucose 152 H (74-99) mg/dL Plasma Lactic Acid Hitesh (0.7-2.0) mmol/L Calcium 10.3 H (8.4-10.2) mg/dL Magnesium 1.3 L (1.6-2.3) mg/dL Total Bilirubin 0.9 (0.2-1.3) mg/dL AST 109 H (17-59) U/L ALT 44 (4-49) U/L Alkaline Phosphatase 114 (38-126) U/L Troponin I (0.000-0.034) ng/mL NT-Pro-B Natriuret Pep pg/mL Total Protein 8.3 H (6.3-8.2) g/dL Albumin 4.3 (3.5-5.0) g/dL Lipase 136 (23-300) U/L Serum Alcohol 280 H* mg/dL Coronavirus (PCR) (Not Detectd) Influenza Type A RNA (Not Detectd) Influenza Type B (PCR) (Not Detectd) 01/15/22 01/15/22 01/15/22 Range/Units 21:45 21:45 21:45 WBC (3.8-10.6) k/uL RBC (4.30-5.90) m/uL Hgb (13.0-17.5) gm/dL Hct (39.0-53.0) % MCV (80.0-100.0) fL MCH (25.0-35.0) pg MCHC (31.0-37.0) g/dL RDW (11.5-15.5) % Plt Count (150-450) k/uL MPV Neutrophils % % Lymphocytes % % Monocytes % % Eosinophils % % Basophils % % Neutrophils # (1.3-7.7) k/uL Lymphocytes # (1.0-4.8) k/uL Monocytes # (0-1.0) k/uL Eosinophils # (0-0.7) k/uL Basophils # (0-0.2) k/uL Anisocytosis PT (9.0-12.0) sec INR (<1.2) APTT (22.0-30.0) sec D-Dimer (<0.60) mg/L FEU Sodium (137-145) mmol/L Potassium (3.5-5.1) mmol/L Chloride (98-107) mmol/L Carbon Dioxide (22-30) mmol/L Anion Gap mmol/L BUN (9-20) mg/dL Creatinine (0.66-1.25) mg/dL Est GFR (CKD-EPI)AfAm (>60 ml/min/1.73 sqM) Est GFR (CKD-EPI)NonAf (>60 ml/min/1.73 sqM) Glucose (74-99) mg/dL Plasma Lactic Acid Hitesh 5.1 H* (0.7-2.0) mmol/L Calcium (8.4-10.2) mg/dL Magnesium (1.6-2.3) mg/dL Total Bilirubin (0.2-1.3) mg/dL AST (17-59) U/L ALT (4-49) U/L Alkaline Phosphatase (38-126) U/L Troponin I 0.036 H* (0.000-0.034) ng/mL NT-Pro-B Natriuret Pep 294 pg/mL Total Protein (6.3-8.2) g/dL Albumin (3.5-5.0) g/dL Lipase (23-300) U/L Serum Alcohol mg/dL Coronavirus (PCR) (Not Detectd) Influenza Type A RNA (Not Detectd) Influenza Type B (PCR) (Not Detectd) 01/15/22 01/15/22 Range/Units 23:05 23:05 WBC (3.8-10.6) k/uL RBC (4.30-5.90) m/uL Hgb (13.0-17.5) gm/dL Hct (39.0-53.0) % MCV (80.0-100.0) fL MCH (25.0-35.0) pg MCHC (31.0-37.0) g/dL RDW (11.5-15.5) % Plt Count (150-450) k/uL MPV Neutrophils % % Lymphocytes % % Monocytes % % Eosinophils % % Basophils % % Neutrophils # (1.3-7.7) k/uL Lymphocytes # (1.0-4.8) k/uL Monocytes # (0-1.0) k/uL Eosinophils # (0-0.7) k/uL Basophils # (0-0.2) k/uL Anisocytosis PT (9.0-12.0) sec INR (<1.2) APTT (22.0-30.0) sec D-Dimer (<0.60) mg/L FEU Sodium (137-145) mmol/L Potassium (3.5-5.1) mmol/L Chloride (98-107) mmol/L Carbon Dioxide (22-30) mmol/L Anion Gap mmol/L BUN (9-20) mg/dL Creatinine (0.66-1.25) mg/dL Est GFR (CKD-EPI)AfAm (>60 ml/min/1.73 sqM) Est GFR (CKD-EPI)NonAf (>60 ml/min/1.73 sqM) Glucose (74-99) mg/dL Plasma Lactic Acid Hitesh (0.7-2.0) mmol/L Calcium (8.4-10.2) mg/dL Magnesium (1.6-2.3) mg/dL Total Bilirubin (0.2-1.3) mg/dL AST (17-59) U/L ALT (4-49) U/L Alkaline Phosphatase (38-126) U/L Troponin I (0.000-0.034) ng/mL NT-Pro-B Natriuret Pep pg/mL Total Protein (6.3-8.2) g/dL Albumin (3.5-5.0) g/dL Lipase (23-300) U/L Serum Alcohol mg/dL Coronavirus (PCR) Not Detected (Not Detectd) Influenza Type A RNA Not Detected (Not Detectd) Influenza Type B (PCR) Not Detected (Not Detectd) - EKG Data -: EKG Interpreted by [place] EKG shows normal: sinus rhythm Rate: tachycardia (Sinus tachycardia) EKG Comments: Sinus tachycardia rate 149 135 QRS duration 70 QT since QTC 293/378 low-voltage nonspecific anterior configuration some artifact present - Radiology Data Radiology results: report reviewed (Image reviewed as well as report no evidence of pulmonary emboli. Please see the complete report), image reviewed Critical Care Time Critical Care Time: Yes Total Critical Care Time: 37 Critical Care Time: Critical care time includes initial presentation with history physical labs x- rays multiple reevaluation patient responsive therapy discuss with the patient regarding findings review of old charting discussed with the main physician admission orders neck mentation the above Disposition Clinical Impression: Acute exacerbation of chronic obstructive pulmonary disease, Dehydration, Tachycardia, Lactic acidosis, Alcohol intoxication, Hypomagnesemia, Elevated d- dimer, Elevated troponin Disposition: ADMITTED IP TO THIS [facility] Condition: Fair Referrals: Doug Beck MD [Primary Care Provider] - 1-2 days Decision Date: 01/15/22 Decision Time: 23:00
[2022-01-15] MEDS ORDERED: PROCHLORPERAZINE INJ 10 MG/2 ML VIAL IVP STA (21:45)
[2022-01-15 22:08] LABS: Anisocytosis Slight; Basophils # (A) 0.1 k/uL (0-0.2); Basophils % (A) 1 %; Eosinophils # (A) 0.1 k/uL (0-0.7); Eosinophils % (A) 1 %; HCT 47.9 % (39.0-53.0); HGB 15.2 gm/dL (13.0-17.5); Lymphocytes # (A) 2.6 k/uL (1.0-4.8); Lymphocytes % (A) 31 %; MCH 30.8 pg (25.0-35.0); MCHC 31.8 g/dL (31.0-37.0); MCV 96.8 fL (80.0-100.0); Monocytes # (A) 0.4 k/uL (0-1.0); Monocytes % (A) 5 %; Neutrophils # (A) 5.1 k/uL (1.3-7.7); Neutrophils % (A) 61 %; Platelet Count 145 k/uL (150-450); RBC 4.95 m/uL (4.30-5.90); RDW 16.2 % (11.5-15.5); WBC 8.5 k/uL (3.8-10.6)
[2022-01-15 22:21] LABS: Albumin 4.3 g/dL (3.5-5.0); Calcium 10.3 mg/dL (8.4-10.2); Total Bilirubin 0.9 mg/dL (0.2-1.3); Total Protein 8.3 g/dL (6.3-8.2)
[2022-01-15 22:31] LABS: INR 1.2 (<1.2); Prothrombin Time 12.4 sec (9.0-12.0)
[2022-01-15 22:32] LABS: Partial Thromboplastin Time 20.6 sec (22.0-30.0)
[2022-01-15 22:51] LABS: Magnesium 1.3 mg/dL (1.6-2.3); Potassium 5.1 mmol/L (3.5-5.1)
--- NOTE | 2022-01-15 23:16 | XR ---
EXAMINATION TYPE: XR chest 2V DATE OF EXAM: 01/15/2022 COMPARISON: 11/13/2021 HISTORY: Short of breath TECHNIQUE: 2 views FINDINGS: There is no heart failure nor confluent pneumonic infiltrate. There are chest leads. There is some coarsening of interstitial markings. No pleural effusion. IMPRESSION: Pulmonary fibrotic changes. Normal heart. No change compared to the old exam no acute heide g disease.
[2022-01-15] MEDS ORDERED: METOPROLOL TARTRATE 5 MG/5 ML VIAL IVP STA (23:33)
[2022-01-15] MEDS: MAGNESIUM SULFATE-D5W PMX 1 GM in DEXTROSE/WATER 1 100ML.BAG IVPB SCH (23:40)
[2022-01-15] MEDS ORDERED: NALOXONE 0.4 MG/ML 1 ML VIAL IV PRN (23:49)
[2022-01-16] MEDS ORDERED: LORazepam 2 MG/ML INJ IV PRN ×3 (00:02)
[2022-01-16] MEDS ORDERED: THIAMINE 100 MG/ML 2 ML VIAL IM STA ×2 (00:02→01:48)
--- NOTE | 2022-01-16 00:03 | CT ---
EXAMINATION TYPE: CT angio chest DATE OF EXAM: 01/15/2022 COMPARISON: 11/15/2021 HISTORY: r/o PE CT DLP: 553.9 mGycm Automated exposure control for dose reduction was used. CONTRAST: Performed with IV Contrast, patient injected with 80 mL of Isovue 370. There are Three-D postprocessed images. There is some coarse interstitial density in the lower lung guadalupe and more on the left side. No pulm onary consolidation. No pleural effusion. Heart size is normal. No pericardial effusion. There is no mediastinal adenopathy. There are no hilar masses. There is normal contrast opacification of the pulm onary arteries. There is some atheromatous changes in the thoracic aorta. There are spondylotic changes in the thoracic spine. There is anterior wedging 40% of the T3 vertebra l body. The upper abdominal soft tissues appear intact. There are calcified granulomata in the spleen . IMPRESSION: No evidence of pulmonary embolism. Interstitial pulmonary density consistent with pulmonary fibrosis and similar to the old exam. No suspicious pulmonary mass. Old T3 compression fracture.
[2022-01-16 01:45] LABS: Glucose,Whole Blood 168 mg/dL (70-110)
[2022-01-16] MEDS: SODIUM CHLORIDE 0.9% 1,000 ML IV SCH ×4 (01:46→20:11)
[2022-01-16] MEDS: MAGNESIUM SULFATE-D5W PMX 1 GM in DEXTROSE/WATER 1 100ML.BAG IVPB SCH (01:46)
[2022-01-16] MEDS ORDERED: traZODone HCL 50 MG TAB PO PRN (02:00)
[2022-01-16] MEDS ORDERED: HYDROmorphone 1 MG/ML 1 ML SYRINGE IVP STA (04:02)
[2022-01-16] MEDS: SUCRALFATE 1 GM TAB PO SCH ×3 (05:42→17:44)
[2022-01-16] MEDS ORDERED: LORazepam 1 MG/0.5 ML VIAL IV PRN (05:55)
[2022-01-16 06:08] LABS: Glucose,Whole Blood 185 mg/dL (70-110)
[2022-01-16] MEDS: LORazepam 1 MG/0.5 ML VIAL IV PRN ×6 (06:10→23:55)
[2022-01-16] MEDS ORDERED: IPRATROPIUM-ALBUTEROL 3 ML NEB INHALATION PRN (08:44)
[2022-01-16] MEDS ORDERED: cloNIDine HCL 0.1 MG TAB PO PRN (08:44)
[2022-01-16] MEDS ORDERED: METOPROLOL SUCCINATE (ER) 100 MG TAB.ER.24H PO SCH (09:00)
[2022-01-16] MEDS ORDERED: NON FORMULARY DRUG (Omeprazole [Omeprazole] 20 MG Capsule) PO SCH (09:00)
[2022-01-16] MEDS ORDERED: LOSARTAN 50 MG TAB PO SCH (09:00)
[2022-01-16] MEDS ORDERED: ERGOCALCIFEROL 1,250 MCG (50,000 IU) CAPSULE PO SCH (09:00)
[2022-01-16] MEDS ORDERED: NAPROXEN 250 MG TAB PO PRN (09:00)
[2022-01-16] MEDS ORDERED: IPRATROPIUM-ALBUTEROL 3 ML NEB INHALATION SCH (09:00)
[2022-01-16] MEDS: ATORVASTATIN 40 MG TAB PO SCH (10:24)
[2022-01-16] MEDS: RIVAROXABAN 20 MG TAB PO SCH (10:24)
[2022-01-16] MEDS: amLODIPine 5 MG TAB PO SCH (10:24)
[2022-01-16] MEDS: MAGNESIUM OXIDE 400 MG TAB PO SCH ×2 (10:26→11:16)
[2022-01-16] MEDS: FERROUS SULFATE 325 MG TAB PO SCH (10:26)
[2022-01-16] MEDS: FOLIC ACID 1 MG TAB PO SCH (10:26)
[2022-01-16] MEDS: PANTOPRAZOLE 40 MG/10 ML VIAL IV SCH ×2 (10:29→10:35)
[2022-01-16] MEDS: LOSARTAN 50 MG TAB PO SCH (10:35)
[2022-01-16] MEDS: METOPROLOL SUCCINATE (ER) 100 MG TAB.ER.24H PO SCH (11:14)
[2022-01-16 12:10] LABS: Glucose,Whole Blood 248 mg/dL (70-110)
[2022-01-16] MEDS: IPRATROPIUM-ALBUTEROL 3 ML NEB INHALATION SCH ×3 (12:18→21:36)
[2022-01-16] MEDS: TAMSULOSIN 0.4 MG CAP.ER.24H PO SCH (12:26)
[2022-01-16] MEDS: POTASSIUM CHLORIDE ER 20 MEQ TAB.ER PO SCH ×2 (12:27→21:21)
[2022-01-16] MEDS ORDERED: DEXTROSE 50% SYRINGE 50 ML IVP PRN ×2 (12:28)
[2022-01-16] MEDS ORDERED: THIAMINE 100 MG TAB PO SCH (12:30)
[2022-01-16] MEDS: INSULIN ASPART (NovoLOG) 100 UNIT/ML VIAL SQ SCH ×3 (12:36→20:08)
[2022-01-16 17:01] LABS: Glucose,Whole Blood 197 mg/dL (70-110)
[2022-01-16] MEDS: THIAMINE 100 MG TAB PO SCH (17:44)
[2022-01-16 18:42] LABS: Estimated Average Glucose UNC
[2022-01-16 20:04] LABS: Glucose,Whole Blood 159 mg/dL (70-110)
--- NOTE | 2022-01-17 04:18 | HP ---
HISTORY AND PHYSICAL CHIEF COMPLAINT: Shortness of breath, tachycardia, dehydration. HISTORY OF PRESENT ILLNESS: This is another recent admission for this 66-year-old white male, chronic alcoholic. He has a history of hypertension and particularly when he drinks. He has not been drinking lately, but apparently started again. He presented to the emergency room with a tachycardia with a sinus rate of around 130 beats per minute. He was very short of breath and he was vomiting. He had a lactic acid of 5.3 which was unexplained. REVIEW OF SYSTEMS: He has had no fever, chills, urinary complaints, etc. Past medical history, family history, personal and social histories are all otherwise unremarkable or unchanged from his other admission of late. His blood pressure has been quite well controlled lately. PHYSICAL EXAMINATION: VITAL SIGNS: Blood pressure is 172/95 with a pulse of around 140, respirations 36. He is afebrile. GENERAL: He appeared to be awake and alert. Skin was slightly clammy. HEENT: Head, ears, eyes, nose, mouth, and throat were normal. CHEST: Clear. CARDIAC: . ABDOMEN: Soft and nontender without any masses or visceromegaly. EXTREMITIES: Normal. NEUROLOGIC: . HOSPITAL DIAGNOSES: 1. tachycardia. 2. Acute alcohol intoxication. 3. Chronic alcoholism. 4. History of hypertension. 5. Elevated lactic acid. PLAN: 1. Bedrest. 2. IV fluids. IV fluids. 3. Control blood pressure. 4. Watch for DTs. MMPREETHIL / RENAEN: [id number] /
[2022-01-17] MEDS: INSULIN ASPART (NovoLOG) 100 UNIT/ML VIAL SQ SCH ×4 (06:02→20:48)
[2022-01-17 06:03] LABS: Glucose,Whole Blood 138 mg/dL (70-110)
[2022-01-17] MEDS: LORazepam 1 MG/0.5 ML VIAL IV PRN ×2 (06:20→12:53)
[2022-01-17] MEDS: PANTOPRAZOLE 40 MG TABLET PO SCH (06:21)
[2022-01-17] MEDS: SODIUM CHLORIDE 0.9% 1,000 ML IV SCH ×3 (06:21→20:47)
[2022-01-17] MEDS: SUCRALFATE 1 GM TAB PO SCH ×3 (06:21→16:36)
[2022-01-17] MEDS: THIAMINE 100 MG TAB PO SCH ×2 (06:21→16:35)
[2022-01-17] MEDS: IPRATROPIUM-ALBUTEROL 3 ML NEB INHALATION SCH ×4 (07:06→20:46)
[2022-01-17] MEDS: METOPROLOL SUCCINATE (ER) 100 MG TAB.ER.24H PO SCH (08:57)
[2022-01-17] MEDS: MAGNESIUM OXIDE 400 MG TAB PO SCH ×2 (08:57→20:44)
[2022-01-17] MEDS: TAMSULOSIN 0.4 MG CAP.ER.24H PO SCH (08:57)
[2022-01-17] MEDS: amLODIPine 5 MG TAB PO SCH (08:57)
[2022-01-17] MEDS: ATORVASTATIN 40 MG TAB PO SCH (08:57)
[2022-01-17] MEDS: RIVAROXABAN 20 MG TAB PO SCH (08:57)
[2022-01-17] MEDS: FOLIC ACID 1 MG TAB PO SCH (08:57)
[2022-01-17] MEDS: FERROUS SULFATE 325 MG TAB PO SCH (08:57)
[2022-01-17] MEDS: POTASSIUM CHLORIDE ER 20 MEQ TAB.ER PO SCH ×2 (08:58→20:44)
[2022-01-17] MEDS: LOSARTAN 50 MG TAB PO SCH (08:58)
--- NOTE | 2022-01-17 09:58 | PN ---
PROGRESS NOTE CHIEF COMPLAINT: Hypertension, tachycardia, and lactic acidosis. HISTORY OF PRESENT ILLNESS: This gentleman is doing much better. is coming down. Pulse chest pain. PHYSICAL EXAMINATION: GENERAL: He is awake and alert. SKIN: Dry. CHEST: Clear. CARDIAC: Normal. ABDOMEN: Soft, nontender. IMPRESSION: 1. Shortness of breath. 2. Sinus tachycardia. 3. History of hypertension. 4. Alcoholism. PLAN: Continue with IV fluids and blood pressure management. MMODL / IJN: [id number] /
[2022-01-17 11:50] LABS: Glucose,Whole Blood 151 mg/dL (70-110)
[2022-01-17] MEDS: ONDANSETRON 4 MG/2 ML VIAL IVP PRN (12:33)
[2022-01-17] MEDS ORDERED: Magnesium Replacement Protocol 1 EACH MISC MISCELLANE PRN (15:37)
[2022-01-17] MEDS: MAGNESIUM SULFATE-D5W PMX 1 GM in DEXTROSE/WATER 1 100ML.BAG IVPB SCH ×2 (16:34→17:59)
[2022-01-17 16:58] LABS: Glucose,Whole Blood 142 mg/dL (70-110)
[2022-01-17 20:40] LABS: Glucose,Whole Blood 145 mg/dL (70-110)
[2022-01-18 06:05] LABS: Glucose,Whole Blood 131 mg/dL (70-110)
[2022-01-18] MEDS: PANTOPRAZOLE 40 MG TABLET PO SCH (06:06)
[2022-01-18] MEDS: THIAMINE 100 MG TAB PO SCH ×2 (06:06→17:14)
[2022-01-18] MEDS: SUCRALFATE 1 GM TAB PO SCH ×3 (06:06→17:14)
[2022-01-18] MEDS: SODIUM CHLORIDE 0.9% 1,000 ML IV SCH ×3 (06:06→20:31)
[2022-01-18] MEDS: INSULIN ASPART (NovoLOG) 100 UNIT/ML VIAL SQ SCH ×4 (06:07→20:32)
[2022-01-18] MEDS: IPRATROPIUM-ALBUTEROL 3 ML NEB INHALATION SCH ×4 (07:21→20:21)
[2022-01-18] MEDS: METOPROLOL SUCCINATE (ER) 100 MG TAB.ER.24H PO SCH (08:54)
[2022-01-18] MEDS: CYCLOBENZAPRINE 10 MG TAB PO PRN ×2 (08:54→20:37)
[2022-01-18] MEDS: TAMSULOSIN 0.4 MG CAP.ER.24H PO SCH (08:54)
[2022-01-18] MEDS: amLODIPine 5 MG TAB PO SCH (08:54)
[2022-01-18] MEDS: POTASSIUM CHLORIDE ER 20 MEQ TAB.ER PO SCH ×2 (08:54→20:37)
[2022-01-18] MEDS: FERROUS SULFATE 325 MG TAB PO SCH (08:54)
[2022-01-18] MEDS: ATORVASTATIN 40 MG TAB PO SCH (08:54)
[2022-01-18] MEDS: RIVAROXABAN 20 MG TAB PO SCH (08:54)
[2022-01-18] MEDS: LOSARTAN 50 MG TAB PO SCH (08:54)
[2022-01-18] MEDS: FOLIC ACID 1 MG TAB PO SCH (08:54)
[2022-01-18] MEDS: MAGNESIUM OXIDE 400 MG TAB PO SCH ×2 (08:54→20:37)
--- NOTE | 2022-01-18 09:22 | P.PN ---
Subjective Progress Note Date: 01/17/22 Principal diagnosis: EtOH intoxication Uncontrolled hypertension Sinus tachycardia 66-year-old male with a history of COPD also history of alcohol abuse; was brought in by EMS today because of shortness of breath which began approximately 1 hour prior to arrival. Complains of some palpitations no overt chest pain no fevers chills or sweats reported. EKG completed in ED revealed sinus tachycardia which responded well to fluid resuscitation and IV Lopressor; further workup included a CT of the chest for elevated d-dimer which was unremarkable Blood work revealed an elevated sodium level of 148 with creatinine of 1.28 and blood glucose of 152 Patient was admitted for further management for alcohol intoxication with impending withdrawal and persistent tachycardia Objective - Vital Signs Vital signs: Vital Signs Temp 98.3 F 01/17/22 08:00 Pulse 90 01/17/22 08:00 Resp 18 01/17/22 08:00 BP 174/104 01/17/22 08:00 Pulse Ox 96 01/17/22 08:00 FiO2 Intake & Output 01/16/22 01/17/22 01/17/22 18:59 06:59 18:59 Intake Total 768 118 Output Total 250 Balance 518 118 Intake: Intake, IV Titration 650 Amount Sodium Chloride 0.9% 1, 650 000 ml @ 130 mls/hr IV . [id number] [facility] Rx#:[id number] Oral 118 118 Output: Urine 250 Other: Voiding Method Toilet Toilet Toilet # Voids 3 1 1 - Exam General appearance: alert, anxious Head exam: Present: atraumatic, normocephalic, normal inspection Eye exam: Present: normal appearance, PERRL, EOMI. Absent: scleral icterus, conjunctival injection, periorbital swelling Neck exam: Present: normal inspection, full ROM, other (No surgery or bruits). Absent: tenderness, meningismus, lymphadenopathy Respiratory exam: Present: wheezes (Basilar), decreased breath sounds. Absent: respiratory distress, rales, rhonchi, stridor Cardiovascular Exam: Present: normal rhythm, tachycardia, normal heart sounds. Absent: systolic murmur, diastolic murmur, rubs, gallop, clicks GI/Abdominal exam: Present: soft, normal bowel sounds. Absent: distended, tenderness, guarding, rebound, rigid Extremities exam: Present: normal inspection, full ROM, normal capillary refill. Absent: tenderness, pedal edema, joint swelling, calf tenderness Neurological exam: Present: alert, oriented X3, CN II-XII intact Psychiatric exam: Present: normal affect, normal mood Skin exam: Present: warm, dry, intact, normal color. Absent: rash - Labs CBC & Chem 7: 01/15/22 21:45 01/15/22 21:45 Labs: Abnormal Lab Results - Last 24 Hours (Table) 01/16/22 01/16/22 01/16/22 Range/Units 11:06 11:47 14:02 POC Glucose (mg/dL) 248 H (70-110) mg/dL Plasma Lactic Acid Hitesh 5.7 H* 4.6 H* (0.7-2.0) mmol/L 01/16/22 01/16/22 01/16/22 Range/Units 16:46 16:47 20:02 POC Glucose (mg/dL) 197 H 159 H (70-110) mg/dL Plasma Lactic Acid Hitesh 2.3 H* (0.7-2.0) mmol/L 01/17/22 Range/Units 06:01 POC Glucose (mg/dL) 138 H (70-110) mg/dL Plasma Lactic Acid Hitesh (0.7-2.0) mmol/L Assessment and Plan Assessment: 1. EtOH intoxication with impending withdrawal 2. Persistent tachycardia 3. Uncontrolled hypertension; continue with home dose of amlodipine 5 mg daily, losartan 100 mg daily and metoprolol 100 mg daily; patient has been placed on clonidine 0.3 mg by mouth 3 times a day when necessary 4. Hyperlipidemia; Lipitor 40 mg by mouth daily at bedtime 5. Paroxysmal Atrial fibrillation; sinus tachycardia at this time; patient is rate controlled on metoprolol; clonidine is added; continue with anticoagulation with Xarelto 6. COPD; not in exacerbation; continue home inhalers therapy 7. Diabetes mellitus; monitor Accu-Cheks before meals and at bedtime with insulin sliding scale 8. History of PE; anticoagulated with Xarelto DVT prophylaxis; SCDs/Xarelto CODE STATUS; full code
[2022-01-18] MEDS ORDERED: amLODIPine 5 MG TAB PO STA (09:38)
[2022-01-18] MEDS ORDERED: MAG HYDROX/AL HYDROX/SIMETH 30 ML CUP PO PRN (09:40)
[2022-01-18 12:54] LABS: Glucose,Whole Blood 242 mg/dL (70-110)
[2022-01-18] MEDS ORDERED: SENNOSIDES 8.6 MG TAB PO PRN (14:10)
[2022-01-18] MEDS ORDERED: MAGNESIUM HYDROXIDE 2,400 MG/10 ML CUP PO PRN (14:11)
--- NOTE | 2022-01-18 16:05 | P.PN ---
Subjective Progress Note Date: 01/18/22 Principal diagnosis: EtOH intoxication Uncontrolled hypertension Sinus tachycardia 66-year-old male with a history of COPD also history of alcohol abuse; was brought in by EMS today because of shortness of breath which began approximately 1 hour prior to arrival. Complains of some palpitations no overt chest pain no fevers chills or sweats reported. EKG completed in ED revealed sinus tachycardia which responded well to fluid resuscitation and IV Lopressor; further workup included a CT of the chest for elevated d-dimer which was unremarkable Blood work revealed an elevated sodium level of 148 with creatinine of 1.28 and blood glucose of 152 Patient was admitted for further management for alcohol intoxication with impending withdrawal and persistent tachycardia 01/18/2022 Patient is seen and evaluated resting in bed; more awake and alert; continues to complain of marked weakness; reports heartburn; blood pressure has been fluctuating and discussed with RN Vital signs are reviewed and remained stable with temperature of 98, pulse 88, respirations 16 and blood pressure of 133/84; saturating 95% on room air We will increase Norvasc to 10 mg daily for improved blood pressure control; patient remains on Catapres 0.3 mg to be used when necessary for tachycardia and uncontrolled hypertension Patient admitted with alcohol intoxication and impending withdrawal; last dose of Ativan was this morning and aren't decreasing use of Ativan since last night We will continue to monitor blood pressure closely; patient likely be able to discharge in next 24 hours if blood pressure remains stable Objective - Vital Signs Vital signs: Vital Signs Temp 98.1 F 01/18/22 03:47 Pulse 96 01/18/22 07:32 Resp 18 01/18/22 03:47 BP 145/83 01/18/22 03:47 Pulse Ox 97 01/18/22 07:21 FiO2 Intake & Output 01/17/22 01/18/22 01/18/22 18:59 06:59 18:59 Intake Total 1078 360 Balance 1078 360 Intake: Oral 1078 360 Other: Voiding Method Toilet Toilet # Voids 2 2 - Exam General appearance: alert, anxious Head exam: Present: atraumatic, normocephalic, normal inspection Eye exam: Present: normal appearance, PERRL, EOMI. Absent: scleral icterus, conjunctival injection, periorbital swelling Neck exam: Present: normal inspection, full ROM, other (No surgery or bruits). Absent: tenderness, meningismus, lymphadenopathy Respiratory exam: Present: wheezes (Basilar), decreased breath sounds. Absent: respiratory distress, rales, rhonchi, stridor Cardiovascular Exam: Present: normal rhythm, tachycardia, normal heart sounds. Absent: systolic murmur, diastolic murmur, rubs, gallop, clicks GI/Abdominal exam: Present: soft, normal bowel sounds. Absent: distended, tenderness, guarding, rebound, rigid Extremities exam: Present: normal inspection, full ROM, normal capillary refill. Absent: tenderness, pedal edema, joint swelling, calf tenderness Neurological exam: Present: alert, oriented X3, CN II-XII intact Psychiatric exam: Present: normal affect, normal mood Skin exam: Present: warm, dry, intact, normal color. Absent: rash - Labs CBC & Chem 7: 01/15/22 21:45 01/15/22 21:45 Labs: Abnormal Lab Results - Last 24 Hours (Table) 01/17/22 01/17/22 01/17/22 Range/Units 11:34 16:33 20:39 POC Glucose (mg/dL) 151 H 142 H 145 H (70-110) mg/dL 01/18/22 Range/Units 06:03 POC Glucose (mg/dL) 131 H (70-110) mg/dL Assessment and Plan Assessment: 1. EtOH intoxication with impending withdrawal 2. Persistent tachycardia 3. Uncontrolled hypertension; continue with home dose of amlodipine 5 mg daily, losartan 100 mg daily and metoprolol 100 mg daily; patient has been placed on clonidine 0.3 mg by mouth 3 times a day when necessary 4. Hyperlipidemia; Lipitor 40 mg by mouth daily at bedtime 5. Paroxysmal Atrial fibrillation; sinus tachycardia at this time; patient is rate controlled on metoprolol; clonidine is added; continue with anticoagulation with Xarelto 6. COPD; not in exacerbation; continue home inhalers therapy 7. Diabetes mellitus; monitor Accu-Cheks before meals and at bedtime with insul in sliding scale 8. History of PE; anticoagulated with Xarelto DVT prophylaxis; SCDs/Xarelto CODE STATUS; full code
[2022-01-18 16:52] LABS: Glucose,Whole Blood 122 mg/dL (70-110)
[2022-01-18 20:17] LABS: Glucose,Whole Blood 114 mg/dL (70-110)
[2022-01-19] MEDS: SODIUM CHLORIDE 0.9% 1,000 ML IV SCH ×2 (04:16→11:35)
[2022-01-19 05:57] LABS: Glucose,Whole Blood 111 mg/dL (70-110)
[2022-01-19] MEDS: INSULIN ASPART (NovoLOG) 100 UNIT/ML VIAL SQ SCH ×4 (06:31→20:08)
[2022-01-19] MEDS: THIAMINE 100 MG TAB PO SCH ×2 (06:39→16:50)
[2022-01-19] MEDS: SUCRALFATE 1 GM TAB PO SCH ×3 (06:39→16:51)
[2022-01-19] MEDS: PANTOPRAZOLE 40 MG TABLET PO SCH (06:39)
[2022-01-19] MEDS: IPRATROPIUM-ALBUTEROL 3 ML NEB INHALATION SCH ×4 (07:17→19:54)
[2022-01-19] MEDS: MAGNESIUM OXIDE 400 MG TAB PO SCH ×2 (08:01→20:05)
[2022-01-19] MEDS: FERROUS SULFATE 325 MG TAB PO SCH (08:01)
[2022-01-19] MEDS: RIVAROXABAN 20 MG TAB PO SCH (08:02)
[2022-01-19] MEDS: ATORVASTATIN 40 MG TAB PO SCH (08:02)
[2022-01-19] MEDS: TAMSULOSIN 0.4 MG CAP.ER.24H PO SCH (08:02)
[2022-01-19] MEDS: LOSARTAN 50 MG TAB PO SCH (08:02)
[2022-01-19] MEDS: POTASSIUM CHLORIDE ER 20 MEQ TAB.ER PO SCH ×2 (08:02→20:05)
[2022-01-19] MEDS: FOLIC ACID 1 MG TAB PO SCH (08:02)
[2022-01-19] MEDS: amLODIPine 10 MG TAB PO SCH (08:02)
[2022-01-19] MEDS: METOPROLOL SUCCINATE (ER) 100 MG TAB.ER.24H PO SCH (08:03)
[2022-01-19 11:57] LABS: Glucose,Whole Blood 104 mg/dL (70-110)
--- NOTE | 2022-01-19 12:55 | P.PN ---
Subjective 66-year-old male with a history of COPD also history of alcohol abuse; was brought in by EMS today because of shortness of breath which began approximately 1 hour prior to arrival. Complains of some palpitations no overt chest pain no fevers chills or sweats reported. EKG completed in ED revealed sinus tachycardia which responded well to fluid r esuscitation and IV Lopressor; further workup included a CT of the chest for elevated d-dimer which was unremarkable Blood work revealed an elevated sodium level of 148 with creatinine of 1.28 and blood glucose of 152 Patient was admitted for further management for alcohol intoxication with impending withdrawal and persistent tachycardia 01/19/2022 Patient was admitted with alcohol intoxication and dyspnea. His chief complaint was dyspnea but on admission his alcohol level was elevated at 280 secondary to his alcohol abuse. Patient was admitted and treated for alcohol withdrawal. He was dehydrated and lactic acid elevated, improved with IV hydration. Troponin is mildly elevated upon admission Lexiscan stress test 03/2021 negative for reversible ischemia. Recent echocardiogram 10/14/2021 reviewed no acute findings. Normal LV function He is currently on XARELTO no s/s of alcohol withdrawal today CTA is negative for PE similar pulmonary fibrosis, no mass. Objective - Vital Signs Vital signs: Vital Signs Temp 98.0 F 01/18/22 16:00 Pulse 78 01/18/22 16:00 Resp 16 01/18/22 16:00 BP 93/62 01/18/22 16:00 Pulse Ox 95 01/18/22 16:00 FiO2 Intake & Output 01/17/22 01/18/22 01/18/22 18:59 06:59 18:59 Intake Total 1078 1680 Balance 1078 1680 Intake: Oral 1078 1680 Other: Voiding Method Toilet Toilet Toilet # Voids 2 2 - Exam GENERAL: The patient is alert and oriented x3, not in any acute distress. Well developed, well nourished. HEENT: Pupils are round and equally reacting to light. EOMI. No scleral icterus. No conjunctival pallor. Normocephalic, atraumatic. No pharyngeal erythema. No thyromegaly. CARDIOVASCULAR: S1 and S2 present. No murmurs, rubs, or gallops. PULMONARY: Chest is clear to auscultation, no wheezing or crackles. ABDOMEN: Soft, nontender, nondistended, normoactive bowel sounds. No palpable organomegaly. MUSCULOSKELETAL: No joint swelling or deformity. EXTREMITIES: No cyanosis, clubbing, or pedal edema. NEUROLOGICAL: Gross neurological examination did not reveal any focal deficits. SKIN: No rashes. no petechiae. - Labs CBC & Chem 7: 01/15/22 21:45 01/15/22 21:45 Labs: Abnormal Lab Results - Last 24 Hours (Table) 01/17/22 01/18/22 01/18/22 Range/Units 20:39 06:03 12:44 POC Glucose (mg/dL) 145 H 131 H 242 H (70-110) mg/dL 01/18/22 Range/Units 16:36 POC Glucose (mg/dL) 122 H (70-110) mg/dL Assessment and Plan Assessment: 1. EtOH intoxication with impending withdrawal 2. Elevated troponin, he had negative stress test last year. Consult cardiology . 3. Uncontrolled hypertension; continue with home dose of amlodipine 5 mg daily, losartan 100 mg daily and metoprolol 100 mg daily; patient has been placed on clonidine 0.3 mg by mouth 3 times a day when necessary . Discontinue IV fluids 4. Hyperlipidemia; Lipitor 40 mg by mouth daily at bedtime 5. Paroxysmal Atrial fibrillation; sinus tachycardia at this time; patient is rate controlled on metoprolol; clonidine is added; continue with anticoagulation with Xarelto 6. COPD; not in exacerbation; continue home inhalers therapy 7. Diabetes mellitus; monitor Accu-Cheks before meals and at bedtime with insulin sliding scale 8. History of PE; anticoagulated with Xarelto 9. Elevated d-dimer. CTA negative for PE. Check ultrasound of the leg DVT prophylaxis; SCDs/Xarelto CODE STATUS; full code Dr. Beck will resume the care of the patient tomorrow
--- NOTE | 2022-01-19 14:55 | US ---
EXAMINATION TYPE: US venous doppler duplex LE DATE OF EXAM: 01/19/2022 12:54 PM COMPARISON: NONE CLINICAL HISTORY: leg swelling. Patient on blood thinners SIDE PERFORMED: Bilateral TECHNIQUE: The lower extremity deep venous system is examined utilizing real time linear array sonog kevin with graded compression, doppler sonography and color-flow sonography. VESSELS IMAGED: Common Femoral Vein Deep Femoral Vein Greater Saphenous Vein * Femoral Vein Popliteal Vein Small Saphenous Vein * Proximal Calf Veins (* superficial vessels) Grayscale, color doppler, spectral doppler imaging performed of the deep veins of the lower extremiti es. There is normal flow, compressibility, vascular waveforms. Right Leg: Negative for DVT Left Leg: Negative for DVT IMPRESSION: No evidence of deep venous thrombosis of the bilateral lower extremities.
[2022-01-19 15:05] LABS: Calcium 8.8 mg/dL (8.4-10.2); Potassium 4.4 mmol/L (3.5-5.1)
[2022-01-19 16:39] LABS: Glucose,Whole Blood 119 mg/dL (70-110)
[2022-01-19 20:09] LABS: Glucose,Whole Blood 137 mg/dL (70-110)
[2022-01-19] MEDS: CYCLOBENZAPRINE 10 MG TAB PO PRN (23:42)
[2022-01-19] MEDS: ONDANSETRON 4 MG/2 ML VIAL IVP PRN (23:47)
[2022-01-20] MEDS: PANTOPRAZOLE 40 MG TABLET PO SCH (06:36)
[2022-01-20] MEDS: SUCRALFATE 1 GM TAB PO SCH ×3 (06:36→19:37)
[2022-01-20] MEDS: THIAMINE 100 MG TAB PO SCH ×2 (06:36→19:37)
[2022-01-20 06:37] LABS: Glucose,Whole Blood 122 mg/dL (70-110)
[2022-01-20] MEDS: INSULIN ASPART (NovoLOG) 100 UNIT/ML VIAL SQ SCH ×4 (06:37→20:14)
[2022-01-20] MEDS: IPRATROPIUM-ALBUTEROL 3 ML NEB INHALATION SCH ×4 (07:15→19:59)
[2022-01-20] MEDS: POTASSIUM CHLORIDE ER 20 MEQ TAB.ER PO SCH ×2 (07:53→20:18)
[2022-01-20] MEDS: RIVAROXABAN 20 MG TAB PO SCH (07:53)
[2022-01-20] MEDS: MAGNESIUM OXIDE 400 MG TAB PO SCH ×2 (07:53→20:18)
[2022-01-20] MEDS: ATORVASTATIN 40 MG TAB PO SCH (07:53)
[2022-01-20] MEDS: TAMSULOSIN 0.4 MG CAP.ER.24H PO SCH (07:53)
[2022-01-20] MEDS: amLODIPine 10 MG TAB PO SCH (07:53)
[2022-01-20] MEDS: FERROUS SULFATE 325 MG TAB PO SCH (07:53)
[2022-01-20] MEDS: FOLIC ACID 1 MG TAB PO SCH (07:53)
[2022-01-20] MEDS: METOPROLOL SUCCINATE (ER) 100 MG TAB.ER.24H PO SCH (07:53)
[2022-01-20] MEDS: LOSARTAN 50 MG TAB PO SCH (07:54)
[2022-01-20] MEDS: CYCLOBENZAPRINE 10 MG TAB PO PRN (08:00)
--- NOTE | 2022-01-20 10:12 | P.CRDCN ---
History of Present Illness History of present illness: HISTORY OF PRESENT ILLNESS: This is a 66-year-old male with a past medical history significant for paroxysmal atrial fibrillation, alcohol abuse, hypertension, hyperlipidemia, COPD, TIA, and diabetes. 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 We have been asked to see the patient in consultation for abnormal troponins. Patient examined at the bedside. Patient states he came to the emergency room secondary to shortness of breath. He states he has been feeling short of breath for the past few days prior to coming to the hospital. At the time of my examination, the patient states his shortness of breath has improved. He does endorse having a frequent cough and a runny nose. He denies any chest pain. He does report pain going down both sides of his torso which he believes is from coughing. Patient's blood pressure is slightly elevated this morning with a systolic in the 160s. Heart rate is in the 90s. The patient states he was just dry heaving prior to me entering his room. Previous blood pressure documented with a systolic in the 120s. * EKG reveals sinus tachycardia with no signs of acute ischemia * Chest xray pulmonary fibrotic changes. Normal heart. No change compared to old exam. No acute lung disease. * Laboratory data: WBC 8.5. Hemoglobin 15.2. Platelet count 145. Sodium 139. Potassium 4.4. BUN 19. Creatinine 1.10. Troponin 0.036. 0.034. 0.022. 0.012. * Current home cardiac medications include Lipitor 40 mg daily, Norvasc 5 mg daily, losartan 100 mg daily, metoprolol succinate 100 mg daily, Xarelto 20 mg daily * Most recent echocardiogram obtained in September 2021 revealed ejection fraction 55- 60%, mild LVH. * Patient underwent Lexiscan stress test in March 2021 which was negative for ischemia REVIEW OF SYSTEMS: At the time of my exam: CONSTITUTIONAL: Denies fever or chills. HEENT: Denies blurred vision, vision changes, or eye pain. Denies hemoptysis CARDIOVASCULAR: Denies chest pain. Denies orthopnea. Denies PND. Denies palpitations RESPIRATORY: Denies shortness of breath. GASTROINTESTINAL: Denies abdominal pain. Denies nausea or vomiting. HEMATOLOGIC: Denies bleeding disorders. GENITOURINARY: Denies any blood in urine. SKIN: Denies pruitis. Denies rash. PHYSICAL EXAM: VITAL SIGNS: Reviewed. GENERAL: Well-developed in no acute distress. HEENT: Head is normocephalic. Pupils are equal, round. Sclerae anicteric. Mucous membranes of the mouth are moist. Neck supple. No JVD or thyromegaly LUNGS: Respirations even and unlabored. Lungs diminished with a very scattered rhonchi. HEART: Regular rate and rhythm. S1 and S2 heard. ABDOMEN: Soft. Nondistended. Nontender. EXTREMITIES: Normal range of motion. No clubbing or cyanosis. Peripheral pulses intact. Trace lower extremity edema NEUROLOGIC: Awake and alert. Oriented x 3. ASSESSMENT: Shortness of breath History of COPD Paroxysmal atrial fibrillation Abnormal troponin, of unclear significance, ACS ruled out Hypertension Hyperlipidemia History of TIA Diabetes Alcohol abuse PLAN: No need to repeat echo as this was performed in September 2021 Continue home cardiac medications Patients BP elevated this morning. However, he was dry heaving prior to my examination and previous SBP charted in the 120s. Continue to monitor blood pressure and will make changes as needed. Abstinence from alcohol recommended Further recommendations pending patient course Nurse practitioner note has been reviewed by physician. Signing provider agrees with the documented findings, assessment, and plan of care. Past Medical History Past Medical History: Atrial Fibrillation, Chest Pain / Angina, COPD, CVA/TIA, Diabetes Mellitus, GERD/Reflux, GI Bleed, Hearing Disorder / Deafness, Hyperlipidemia, Hypertension, Liver Disease, Pneumonia, Prostate Disorder, Pulmonary Embolus (PE) Additional Past Medical History / Comment(s): Pt recently hospitalized at [facility] with pneumonia. Other hx: GI bleed/ esophageal varicies banded. Other hx: Alcoholism, alcohol withdrawal DTs and possibly a seizure in 2018 r/t withdrawal, chronic alcoholic cirrhosis with portal hypertension and previous history of upper and lower GI bleeding, esophageal varices, previous history of childhood seizure which he outgrew not taking any antiepileptic medication, pulmonary embolism x 2 R lung, TIA, diverticulosis, chronic lower bilateral extremity ankle edema if he walks a lot, previous history of septicemia, cervical disc disease, chronic neck pain, chronic back pain with r sided sci atica, degenerative arthritis involving the lower back, scoliosis, tinnitus, vitamin D deficiency, iron anemia, chronic thrombocytopenia, denies MRSA, C-DIFF 4-2018 History of Any Multi-Drug Resistant Organisms: MRSA Date of last positivie culture/infection: 03/17/18 MDRO Source:: stomach Past Surgical History: Appendectomy, Cholecystectomy Additional Past Surgical History / Comment(s): EGDs/esophageal varicies bandings, colonoscopies. Past Anesthesia/Blood Transfusion Reactions: No Reported Reaction Additional Past Anesthesia/Blood Transfusion Reaction / Comment(s): after appendix removed sob Past Psychological History: Anxiety, Depression Smoking Status: Never smoker Past Alcohol Use History: Occasional Past Drug Use History: None Reported - Past Family History Mother Family Medical History: COPD, CVA/TIA, Dementia Additional Family Medical History / Comment(s): from a stroke Father Family Medical History: Pneumonia Additional Family Medical History / Comment(s): Father of pneumonia when he was close to 80 yrs old. Medications and Allergies Home Medications Medication Instructions Recorded Confirmed Type Ferrous Sulfate [Iron (65 MG 325 mg PO DAILY #30 tab 06/07/19 01/16/22 Rx Elemental)] Folic Acid 1 mg PO DAILY 01/07/20 01/16/22 History traZODone HCL 50 mg PO HS PRN 01/07/20 01/16/22 History Ergocalciferol [Vitamin D2 (1250 1,250 mcg PO Q30D 10/30/20 01/16/22 History Mcg = 20764 Iu)] Naproxen 500 mg PO BID PRN 10/30/20 01/16/22 History Omeprazole 20 mg PO DAILY 03/02/21 01/16/22 History Magnesium Oxide [Mag-Ox] 400 mg PO BID #60 tab 04/03/21 01/16/22 Rx Thiamine [Vitamin B-1] 100 mg PO W/LUNCH 07/21/21 01/16/22 History Atorvastatin [Lipitor] 40 mg PO DAILY 30 Days #30 tab 07/25/21 01/16/22 Rx Cyclobenzaprine [Flexeril] 10 mg PO TID PRN #30 tab 07/25/21 01/16/22 Rx Sucralfate [Carafate] 1 gm PO AC-TID #90 tablet 07/25/21 01/16/22 Rx Metoprolol Succinate (ER) [Toprol 100 mg PO DAILY #30 09/26/21 01/16/22 Rx XL] Rivaroxaban [Xarelto] 20 mg PO DAILY #30 tab 10/14/21 01/16/22 Rx amLODIPine [Norvasc] 5 mg PO DAILY #30 tab 11/19/21 01/16/22 Rx Ipratropium-Albuterol Nebulize 3 ml INHALATION RT-QID PRN 01/16/22 01/16/22 History [Duoneb 0.5 mg-3 mg/3 ml Soln] Losartan Potassium 100 mg PO DAILY 01/16/22 01/16/22 History Potassium Chloride ER [K-Dur 20] 20 meq PO BID 01/16/22 01/16/22 History Tamsulosin HCl [Flomax] 0.4 mg PO DAILY 01/16/22 01/16/22 History cloNIDine HCL [Catapres] 0.3 mg PO TID PRN 01/16/22 01/16/22 History Allergies Allergy/AdvReac Type Severity Reaction Status Date / Time adhesive tape Allergy Rash/Hives Verified 01/16/22 08:25 latex Allergy Rash/Hives Verified 01/16/22 08:25 lisinopril Allergy EYES Verified 01/16/22 08:25 BURN&ITCH/WEAKNESS egg AdvReac Nausea & Verified 01/16/22 08:25 Vomiting tomato AdvReac Nausea & Verified 01/16/22 08:25 Vomiting & Diarrhea Physical Exam Vitals: Vital Signs Temp Pulse Pulse Resp BP BP Pulse Ox 01/20/22 07:42 97.8 F 96 18 162/91 96 01/20/22 07:30 88 01/20/22 07:17 89 98 01/20/22 03:45 98.0 F 91 18 129/71 96 01/19/22 23:51 98.1 F 88 15 137/86 96 01/19/22 20:02 88 01/19/22 19:55 86 01/19/22 19:20 98.0 F 83 16 130/81 95 01/19/22 16:00 98 F 85 18 132/74 94 L 01/19/22 15:27 83 01/19/22 15:16 85 97 01/19/22 11:52 98 F 93 18 139/90 93 L 01/19/22 11:08 76 01/19/22 11:03 72 Intake and Output 01/19/22 01/20/22 01/20/22 22:59 06:59 14:59 Intake Total 360 240 Balance 360 240 Intake: Intake, IV Titration 0 Amount Sodium Chloride 0.9% 1, 0 000 ml @ 130 mls/hr IV . Q7H42M [facility] Rx#:[id number] Oral 360 240 Other: # Voids 1 1 1 Results 01/15/22 21:45 01/19/22 14:00 Cardiac Enzymes 01/19/22 Range/Units 14:00 Troponin I <0.012 (0.000-0.034) ng/mL Comprehensive Metabolic Panel 01/19/22 Range/Units 14:00 Sodium 139 (137-145) mmol/L Potassium 4.4 (3.5-5.1) mmol/L Chloride 107 (98-107) mmol/L Carbon Dioxide 22 (22-30) mmol/L BUN 19 (9-20) mg/dL Creatinine 1.10 (0.66-1.25) mg/dL Glucose 249 H (74-99) mg/dL Calcium 8.8 (8.4-10.2) mg/dL Current Medications Generic Name Dose Route Start Last Admin Trade Name Freq PRN Reason Stop Dose Admin Al Hydroxide/Mg Hydroxide 30 ml 01/18/22 09:40 01/18/22 10:31 Mag Hydrox/Al Hydrox/Simeth 30 Ml Cup PO 30 ml Q4HR PRN Administration GI Upset Albuterol/Ipratropium 3 ml 01/16/22 08:44 Ipratropium-Albuterol 3 Ml Neb INHALATION RT-QID PRN Shortness Of Breath Albuterol/Ipratropium 3 ml 01/16/22 12:00 01/20/22 07:15 Ipratropium-Albuterol 3 Ml Neb INHALATION 3 ml RT-QID TANYA Administration Amlodipine Besylate 10 mg 01/19/22 09:00 01/20/22 07:53 Amlodipine 10 Mg Tab PO 10 mg DAILY TANYA Administration Atorvastatin Calcium 40 mg 01/16/22 09:00 01/20/22 07:53 Atorvastatin 40 Mg Tab PO 40 mg DAILY TANYA Administration Clonidine 0.3 mg 01/16/22 08:44 01/18/22 08:54 Clonidine Hcl 0.1 Mg Tab PO 0.3 mg TID PRN Administration High Heart Rate (>120) Cyclobenzaprine HCl 10 mg 01/16/22 09:00 01/20/22 08:00 Cyclobenzaprine 10 Mg Tab PO 10 mg TID PRN Administration Muscle Pain Dextrose/Water 25 ml 01/16/22 12:28 Dextrose 50% Syringe 50 Ml IVP PER PROTOCOL PRN Hypoglycemia Protocol Dextrose/Water 50 ml 01/16/22 12:28 Dextrose 50% Syringe 50 Ml IVP PER PROTOCOL PRN Hypoglycemia Protocol Ergocalciferol 1,250 mcg 01/16/22 09:00 01/16/22 17:44 Ergocalciferol 1,250 Mcg (50,000 Iu) Capsule PO 1,250 mcg Q30D TANYA Administration Ferrous Sulfate 325 mg 01/16/22 09:00 01/20/22 07:53 Ferrous Sulfate 325 Mg Tab PO 325 mg DAILY TANYA Administration Folic Acid 1 mg 01/16/22 09:00 01/20/22 07:53 Folic Acid 1 Mg Tab PO 1 mg DAILY TANYA Administration Insulin Aspart 0 unit 01/16/22 12:30 01/20/22 06:37 Insulin Aspart (Novolog) 100 Unit/Ml Vial SQ Not Given ACHS [facility] Protocol Lorazepam 1 mg 01/16/22 05:54 01/17/22 12:53 Lorazepam 1 Mg/0.5 Ml Vial IV 1 mg Q2HR PRN Administration CIWA 8 or 9 Lorazepam 1 mg 01/16/22 05:54 01/16/22 12:27 Lorazepam 1 Mg/0.5 Ml Vial IV 1 mg Q1HR PRN Administration CIWA 10 to 15 Losartan Potassium 100 mg 01/16/22 09:00 01/20/22 07:54 Losartan 50 Mg Tab PO 100 mg DAILY TANYA Administration Magnesium Hydroxide 2,400 mg 01/18/22 14:11 01/18/22 17:14 Magnesium Hydroxide 2,400 Mg/10 Ml Cup PO 01/23/22 14:12 2,400 mg BID PRN Administration Constipation Magnesium Oxide 400 mg 01/16/22 09:00 01/20/22 07:53 Magnesium Oxide 400 Mg Tab PO 400 mg BID TANYA Administration Metoprolol Succinate 100 mg 01/16/22 10:30 01/20/22 07:53 Metoprolol Succinate (Er) 100 Mg Tab.Er.24h PO 100 mg DAILY TANYA Administration Miscellaneous Information 1 each 01/17/22 15:37 Magnesium Replacement Protocol 1 Each Misc MISCELLANE DAILY PRN Per Protocol Protocol Naloxone HCl 0.2 mg 01/15/22 23:49 Naloxone 0.4 Mg/Ml 1 Ml Vial IV Q2M PRN Opioid Reversal Naproxen 500 mg 01/16/22 09:00 Naproxen 250 Mg Tab PO BID PRN Pain Ondansetron HCl 4 mg 01/15/22 23:49 01/19/22 23:47 Ondansetron 4 Mg/2 Ml Vial IVP 4 mg Q8HR PRN Administration Nausea And Vomiting Pantoprazole Sodium 40 mg 01/17/22 07:30 01/20/22 06:36 Pantoprazole 40 Mg Tablet PO 40 mg AC-BRKFST TANYA Administration Potassium Chloride 20 meq 01/16/22 09:00 01/20/22 07:53 Potassium Chloride Er 20 Meq Tab.Er PO 20 meq BID TANYA Administration Rivaroxaban 20 mg 01/16/22 09:00 01/20/22 07:53 Rivaroxaban 20 Mg Tab PO 20 mg DAILY TANYA Administration Protocol Senna 8.6 mg 01/18/22 14:10 01/18/22 17:14 Sennosides 8.6 Mg Tab PO 8.6 mg BID PRN Administration Constipation Sucralfate 1 gm 01/16/22 07:30 01/20/22 06:36 Sucralfate 1 Gm Tab PO 1 gm AC-TID TANYA Administration Tamsulosin HCl 0.4 mg 01/16/22 09:00 01/20/22 07:53 Tamsulosin 0.4 Mg Cap.Er.24h PO 0.4 mg DAILY TANYA Administration Thiamine HCl 100 mg 01/16/22 17:30 01/20/22 06:36 Thiamine 100 Mg Tab PO 100 mg BID-W/MEALS TANYA Administration Trazodone HCl 50 mg 01/16/22 02:00 Trazodone Hcl 50 Mg Tab PO HS PRN Insomnia Intake and Output 01/19/22 01/20/22 01/20/22 22:59 06:59 14:59 Intake Total 360 240 Balance 360 240 Intake: Intake, IV Titration 0 Amount Sodium Chloride 0.9% 1, 0 000 ml @ 130 mls/hr IV . Q7H42M [facility] Rx#:[id number] Oral 360 240 Other: # Voids 1 1 1 01/15/22 21:45 01/19/22 14:00
[2022-01-20 11:52] LABS: Glucose,Whole Blood 139 mg/dL (70-110)
[2022-01-20 12:11] VITALS: BMI 30.4
[2022-01-20 19:09] LABS: Glucose,Whole Blood 103 mg/dL (70-110)
[2022-01-20 20:13] LABS: Glucose,Whole Blood 107 mg/dL (70-110)
[2022-01-21 05:59] LABS: Glucose,Whole Blood 115 mg/dL (70-110)
[2022-01-21] MEDS: INSULIN ASPART (NovoLOG) 100 UNIT/ML VIAL SQ SCH (06:03)
[2022-01-21] MEDS: THIAMINE 100 MG TAB PO SCH (06:04)
[2022-01-21] MEDS: PANTOPRAZOLE 40 MG TABLET PO SCH (06:04)
[2022-01-21] MEDS: SUCRALFATE 1 GM TAB PO SCH (06:04)
[2022-01-21 07:39] VITALS: BP 128/85; TEMP 97.5
[2022-01-21] MEDS: IPRATROPIUM-ALBUTEROL 3 ML NEB INHALATION SCH (08:21)
[2022-01-21] MEDS: POTASSIUM CHLORIDE ER 20 MEQ TAB.ER PO SCH (08:46)
[2022-01-21] MEDS: FERROUS SULFATE 325 MG TAB PO SCH (08:46)
[2022-01-21] MEDS: amLODIPine 10 MG TAB PO SCH (08:46)
[2022-01-21] MEDS: METOPROLOL SUCCINATE (ER) 100 MG TAB.ER.24H PO SCH (08:46)
[2022-01-21] MEDS: ATORVASTATIN 40 MG TAB PO SCH (08:46)
[2022-01-21] MEDS: TAMSULOSIN 0.4 MG CAP.ER.24H PO SCH (08:46)
[2022-01-21] MEDS: FOLIC ACID 1 MG TAB PO SCH (08:46)
[2022-01-21] MEDS: MAGNESIUM OXIDE 400 MG TAB PO SCH (08:46)
[2022-01-21] MEDS: RIVAROXABAN 20 MG TAB PO SCH (08:46)
[2022-01-21] MEDS: LOSARTAN 50 MG TAB PO SCH (08:46)
[2022-01-21 09:16] VITALS: PULSE 100; RESP 19
--- NOTE | 2022-01-21 09:32 | PN ---
PROGRESS NOTE CHIEF COMPLAINT: Tachycardia, alcoholism, and hypertension. HISTORY OF PRESENT ILLNESS: This gentleman is doing a bit better. He is still somewhat nauseated and still complaining of some chest and abdominal pain. Abdominal pain is improved. PHYSICAL EXAMINATION: VITAL SIGNS: Normal. CHEST: Clear. CARDIAC: Normal. ABDOMEN: Soft, nontender. IMPRESSION: 1. Supraventricular tachycardia. 2. Chronic obstructive pulmonary disease. 3. Hypertension. 4. Alcoholism. 5. Nausea. PLAN: Progress activity and probably home tomorrow if he is less nauseated. MMODL / IJN: [id number] /
--- NOTE | 2022-01-21 22:23 | P.DS ---
Providers Date of admission: 01/15/22 23:49 Attending physician: Doug Beck Consults: 01/19/22 12:49 Consult Physician Urgent Consulting Provider: Khai Kulkarni Consult Reason/Comments: elevated troponin on admission Do you want consulting provider notified?: Yes Primary care physician: Doug Beck Hospital Course: Diagnoses: 1. EtOH intoxication with impending withdrawal 2. Elevated troponin, he had negative stress test last year. 3. Uncontrolled hypertension; continue with home dose of amlodipine 5 mg daily, losartan 100 mg daily and metoprolol 100 mg daily; patient has been placed on clonidine 0.3 mg by mouth 3 times a day when necessary 4. Hyperlipidemia 5. Paroxysmal Atrial fibrillation; sinus tachycardia at this time; patient is rate controlled on metoprolol; clonidine is added; continue with anticoagulation with Xarelto 6. COPD; in mild exacerbation. Will require inhaled steroids, no need for systemic steroids and albuterol inhaler 7. Diabetes mellitus 8. History of PE; anticoagulated with Xarelto 9. Elevated d-dimer. CTA negative for PE. ultrasound of the leg negative for deep venous thrombosis Hospital course: 66-year-old male with a history of COPD also history of alcohol abuse; was brought in by EMS today because of shortness of breath which began approximately 1 hour prior to arrival.further workup included a CT of the chest for elevated d-dimer which was unremarkable. Patient was admitted for alcohol intoxication, his alcohol level was high on admission to 80. Patient was treated with see what protocol and he remained clinically stable and improved with benzodiazepine treatment and vitamins. Patient denies depression or any suicidal ideation or any other psychiatric illness. Cardiology was also elevated him for elevated troponin and A. fib and recommended to continue with the same treatment. Patient currently on Xarelto and metoprolol. Patient showed interval improvement and today very calm sitting in bed comfort able. He denies chest pain or dyspnea. He tolerates diet. No diarrhea. No cough and no chest pain. No palpitation.. His get up and go test was normal this morning Patient did for discharge by sign writer letterer or painter Problems and management plan were discussed with the patient and he verbalized understanding and acceptance Patient was found stable and can be discharged home in regards prognosis however he needs follow-up as an outpatient. Patient was instructed to follow up with PCP Dr. bcek within one week and patient agrees Patient also instructed to follow up with his sign writer letterer or painter Dr. Schmitt in 1-2 weeks and he agrees and airplane pilot supervisor Dr. urrutia in 1-2 weeks and he agrees to follow and make appointment Physical exam Gen: patient is a AAOx3, no distress CVS: S1-S2, RRR, no murmur Lungs: B/L CTA, no wheezing Abdomen: soft, no distention, no tenderness, positive bowel sounds Extremity: no leg edema or induration Time spent more than 35 minutes Complains of some palpitations no overt chest pain no fevers chills or sweats reported. EKG completed in ED revealed sinus tachycardia which responded well to fluid resuscitation and IV Lopressor; Blood work revealed an elevated sodium level of 148 with creatinine of 1.28 and blood glucose of 152 Patient was admitted for further management for alcohol intoxication with impending withdrawal and persistent tachycardia 01/19/2022 Patient was admitted with alcohol intoxication and dyspnea. His chief complaint was dyspnea but on admission his alcohol level was elevated at 280 secondary to his alcohol abuse. Patient was admitted and treated for alcohol withdrawal. He was dehydrated and lactic acid elevated, improved with IV hydration. Troponin is mildly elevated upon admission Lexiscan stress test 03/2021 negative for reversible ischemia. Recent echocardiogram 10/14/2021 reviewed no acute findings. Normal LV function He is currently on XARELTO no s/s of alcohol withdrawal today CTA is negative for PE similar pulmonary fib rosis, no mass. Patient Condition at Discharge: Fair Plan - Discharge Summary Discharge Rx Participant: Yes New Discharge Prescriptions: New amLODIPine [Norvasc] 10 mg PO DAILY #30 tab Budesonide [Pulmicort] 0.5 mg INHALATION BID 5 Days #60 ml Albuterol Inhaler [Ventolin Hfa Inhaler] 2 puff INHALATION RT-QID 5 Days #8 gm Continue Ferrous Sulfate [Iron (65 MG Elemental)] 325 mg PO DAILY #30 tab traZODone HCL 50 mg PO HS PRN PRN Reason: Insomnia Folic Acid 1 mg PO DAILY Naproxen 500 mg PO BID PRN PRN Reason: Pain Magnesium Oxide [Mag-Ox] 400 mg PO BID #60 tab cloNIDine HCL [Catapres] 0.3 mg PO TID PRN PRN Reason: High Heart Rate Tamsulosin HCl [Flomax] 0.4 mg PO DAILY Potassium Chloride ER [K-Dur 20] 20 meq PO BID Losartan Potassium 100 mg PO DAILY Ergocalciferol [Vitamin D2 (1250 Mcg = 28849 Iu)] 1,250 mcg PO Q30D Omeprazole 20 mg PO DAILY Thiamine [Vitamin B-1] 100 mg PO W/LUNCH Cyclobenzaprine [Flexeril] 10 mg PO TID PRN #30 tab PRN Reason: Muscle Pain Sucralfate [Carafate] 1 gm PO AC-TID #90 tablet Atorvastatin [Lipitor] 40 mg PO DAILY 30 Days #30 tab Metoprolol Succinate (ER) [Toprol XL] 100 mg PO DAILY #30 Ipratropium-Albuterol Nebulize [Duoneb 0.5 mg-3 mg/3 ml Soln] 3 ml INHALATION RT-QID PRN PRN Reason: Shortness Of Breath Rivaroxaban [Xarelto] 20 mg PO DAILY 30 Days #30 tab Discontinued amLODIPine [Norvasc] 5 mg PO DAILY #30 tab Discharge Medication List Ferrous Sulfate [Iron (65 MG Elemental)] 325 mg PO DAILY #30 tab 06/07/19 [Rx] Folic Acid 1 mg PO DAILY 01/07/20 [History] traZODone HCL 50 mg PO HS PRN 01/07/20 [History] Ergocalciferol [Vitamin D2 (1250 Mcg = 41437 Iu)] 1,250 mcg PO Q30D 10/30/20 [History] Naproxen 500 mg PO BID PRN 10/30/20 [History] Omeprazole 20 mg PO DAILY 03/02/21 [History] Magnesium Oxide [Mag-Ox] 400 mg PO BID #60 tab 04/03/21 [Rx] Thiamine [Vitamin B-1] 100 mg PO W/LUNCH 07/21/21 [History] Atorvastatin [Lipitor] 40 mg PO DAILY 30 Days #30 tab 07/25/21 [Rx] Cyclobenzaprine [Flexeril] 10 mg PO TID PRN #30 tab 07/25/21 [Rx] Sucralfate [Carafate] 1 gm PO AC-TID #90 tablet 07/25/21 [Rx] Metoprolol Succinate (ER) [Toprol XL] 100 mg PO DAILY #30 09/26/21 [Rx] Ipratropium-Albuterol Nebulize [Duoneb 0.5 mg-3 mg/3 ml Soln] 3 ml INHALATION RT-QID PRN 01/16/22 [History] Losartan Potassium 100 mg PO DAILY 01/16/22 [History] Potassium Chloride ER [K-Dur 20] 20 meq PO BID 01/16/22 [History] Tamsulosin HCl [Flomax] 0.4 mg PO DAILY 01/16/22 [History] cloNIDine HCL [Catapres] 0.3 mg PO TID PRN 01/16/22 [History] Albuterol Inhaler [Ventolin Hfa Inhaler] 2 puff INHALATION RT-QID 5 Days #8 gm 01/21/22 [Rx] Budesonide [Pulmicort] 0.5 mg INHALATION BID 5 Days #60 ml 01/21/22 [Rx] Rivaroxaban [Xarelto] 20 mg PO DAILY 30 Days #30 tab 01/21/22 [Rx] amLODIPine [Norvasc] 10 mg PO DAILY #30 tab 01/21/22 [Rx] Follow up Appointment(s)/Referral(s): Khai Kulkarni MD [STAFF PHYSICIAN] - 02/03/22 4:30 pm (heart doctor-appt with Dr. Olmedo ) Doug Beck MD [Primary Care Provider] - 01/26/22 11:00 am Dionicio Harkins DO [Doctor of Osteopathic Medicine] - 02/06/22 1:45 pm (lung doctor ) [facility], [NON-STAFF] - Patient Instructions/Handouts: COPD (Chronic Obstructive Pulmonary Disease) (DC) Activity/Diet/Wound Care/Special Instructions: Heart healthy diet Activity is restricted till you see your doctor Discharge Disposition: HOME SELF-CARE
== END 2022-01-21 11:23 | disposition home or self-care (01) | DRG 191 ==
LOC: EC 21:21 → 3SCARD 23:49
PROVIDERS: ADMIT Family Medicine; ATTEND Family Medicine
DX: J44.1 Chronic obstructive pulmonary disease with (acute) exacerbation (principal); E87.2 Acidosis; K76.6 Portal hypertension; I48.92 Unspecified atrial flutter; I47.1 Supraventricular tachycardia; F10.239 Alcohol dependence with withdrawal, unspecified; D69.6 Thrombocytopenia, unspecified; E11.9 Type 2 diabetes mellitus without complications; I10 Essential (primary) hypertension; F32.A Depression, unspecified; F10.229 Alcohol dependence with intoxication, unspecified; K70.30 Alcoholic cirrhosis of liver without ascites; I48.0 Paroxysmal atrial fibrillation; E86.0 Dehydration; E78.5 Hyperlipidemia, unspecified; H91.90 Unspecified hearing loss, unspecified ear; N42.9 Disorder of prostate, unspecified; G89.29 Other chronic pain; M54.9 Dorsalgia, unspecified; M50.90 Cervical disc disorder, unspecified, unspecified cervical region; M54.31 Sciatica, right side; M47.816 Spondylosis without myelopathy or radiculopathy, lumbar region; M41.9 Scoliosis, unspecified; E83.42 Hypomagnesemia; R77.8 Other specified abnormalities of plasma proteins; Y90.8 Blood alcohol level of 240 mg/100 ml or more; R12 Heartburn; R79.89 Other specified abnormal findings of blood chemistry; F41.9 Anxiety disorder, unspecified; Z20.822 Contact with and (suspected) exposure to COVID-19; Z79.899 Other long term (current) drug therapy; Z79.01 Long term (current) use of anticoagulants; Z91.040 Latex allergy status; Z91.048 Other nonmedicinal substance allergy status; Z91.012 Allergy to eggs; Z88.8 Allergy status to other drugs, medicaments and biological substances; Z91.018 Allergy to other foods; Z86.711 Personal history of pulmonary embolism; Z86.73 Personal history of transient ischemic attack (TIA), and cerebral infarction without residual deficits; Z87.01 Personal history of pneumonia (recurrent); Z87.19 Personal history of other diseases of the digestive system; Z98.890 Other specified postprocedural states; Z86.69 Personal history of other diseases of the nervous system and sense organs; Z86.19 Personal history of other infectious and parasitic diseases; Z86.14 Personal history of Methicillin resistant Staphylococcus aureus infection; Z90.49 Acquired absence of other specified parts of digestive tract; Z90.89 Acquired absence of other organs; Z82.5 Family history of asthma and other chronic lower respiratory diseases; Z82.3 Family history of stroke; Z83.6 Family history of other diseases of the respiratory system
CPT/HCPCS: 36415; 71046; 71275; 80048; 80053; 80320; 83036; 83605; 83690; 83735; 83880; 84484; 85025; 85379; 85610; 85730; 87502; 87635; 93005; 93970; 94640; 94760; 96365; 96366; 96372; 96375; 99291

== ENCOUNTER 2022-01-30 18:45 | Inpatient (IN) | payer MEDICARE, OTHER ==
[2022-01-30] MEDS ORDERED: NITROGLYCERIN SL TABS 0.4 MG TAB SUBLINGUAL STA ×3 (18:58)
[2022-01-30] MEDS ORDERED: ASPIRIN 81 MG PO STA (18:58)
--- NOTE | 2022-01-30 19:03 | ED ---
General Adult HPI - General Chief complaint: Chest Pain Stated complaint: Chest pain Time Seen by Provider: 01/30/22 18:49 Source: patient, EMS, RN notes reviewed Mode of arrival: EMS Limitations: no limitations - History of Present Illness Initial comments: Patient is a pleasant 66-year-old male presenting to the emergency department chest discomfort. Patient does have chronic chest discomfort usually a couple times a month however today is worse. Patient does have some mild congestion. Patient does have mild cough. Chest discomfort feels like heaviness and there is associated dyspnea, and nausea. Patient states he does feel a bit sweaty. N o fever. Patient states he has not been drinking alcohol last couple weeks. - Related Data Home Medications Medication Instructions Recorded Confirmed Folic Acid 1 mg PO DAILY 01/07/20 01/16/22 traZODone HCL 50 mg PO HS PRN 01/07/20 01/16/22 Ergocalciferol [Vitamin D2 (1250 1,250 mcg PO Q30D 10/30/20 01/16/22 Mcg = 06649 Iu)] Naproxen 500 mg PO BID PRN 10/30/20 01/16/22 Omeprazole 20 mg PO DAILY 03/02/21 01/16/22 Thiamine [Vitamin B-1] 100 mg PO W/LUNCH 07/21/21 01/16/22 Ipratropium-Albuterol Nebulize 3 ml INHALATION RT-QID PRN 01/16/22 01/16/22 [Duoneb 0.5 mg-3 mg/3 ml Soln] Losartan Potassium 100 mg PO DAILY 01/16/22 01/16/22 Potassium Chloride ER [K-Dur 20] 20 meq PO BID 01/16/22 01/16/22 Tamsulosin HCl [Flomax] 0.4 mg PO DAILY 01/16/22 01/16/22 cloNIDine HCL [Catapres] 0.3 mg PO TID PRN 01/16/22 01/16/22 Previous Rx's Medication Instructions Recorded Ferrous Sulfate [Iron (65 MG 325 mg PO DAILY #30 tab 06/07/19 Elemental)] Magnesium Oxide [Mag-Ox] 400 mg PO BID #60 tab 04/03/21 Atorvastatin [Lipitor] 40 mg PO DAILY 30 Days #30 tab 07/25/21 Cyclobenzaprine [Flexeril] 10 mg PO TID PRN #30 tab 07/25/21 Sucralfate [Carafate] 1 gm PO AC-TID #90 tablet 07/25/21 Metoprolol Succinate (ER) [Toprol 100 mg PO DAILY #30 09/26/21 XL] Albuterol Inhaler [Ventolin Hfa 2 puff INHALATION RT-QID 5 Days #8 01/21/22 Inhaler] gm Budesonide [Pulmicort] 0.5 mg INHALATION BID 5 Days #60 ml 01/21/22 Rivaroxaban [Xarelto] 20 mg PO DAILY 30 Days #30 tab 01/21/22 amLODIPine [Norvasc] 10 mg PO DAILY #30 tab 01/21/22 Allergies Allergy/AdvReac Type Severity Reaction Status Date / Time adhesive tape Allergy Rash/Hives Verified 01/16/22 08:25 latex Allergy Rash/Hives Verified 01/16/22 08:25 lisinopril Allergy EYES Verified 01/16/22 08:25 BURN&ITCH/WEAKNESS egg AdvReac Nausea & Verified 01/16/22 08:25 Vomiting tomato AdvReac Nausea & Verified 01/16/22 08:25 Vomiting & Diarrhea Review of Systems ROS Statement: Those systems with pertinent positive or pertinent negative responses have been documented in the HPI. ROS Other: All systems not noted in ROS Statement are negative. Constitutional: Denies: fever Eyes: Denies: eye pain ENT: Denies: ear pain Respiratory: Reports: dyspnea. Denies: cough Cardiovascular: Reports: chest pain, palpitations Endocrine: Denies: fatigue Gastrointestinal: Reports: nausea. Denies: vomiting Genitourinary: Denies: urgency Musculoskeletal: Denies: back pain Skin: Denies: lesions Past Medical History Past Medical History: Atrial Fibrillation, Chest Pain / Angina, COPD, CVA/TIA, Diabetes Mellitus, GERD/Reflux, GI Bleed, Hearing Disorder / Deafness, Hyperlipidemia, Hypertension, Liver Disease, Pneumonia, Prostate Disorder, Pulmonary Embolus (PE) Additional Past Medical History / Comment(s): Pt recently hospitalized at [facility] with pneumonia. Other hx: GI bleed/ esophageal varicies banded. Other hx: Alcoholism, alcohol withdrawal DTs and possibly a seizure in 2018 r/t withdrawal, chronic alcoholic cirrhosis with portal hypertension and previous history of upper and lower GI bleeding, esophageal varices, previous history of childhood seizure which he outgrew not taking any antiepileptic medication, pulmonary embolism x 2 R lung, TIA, diverticulosis, chronic lower bilateral extremity ankle edema if he walks a lot, previous history of septicemia, cervical disc disease, chronic neck pain, chronic back pain with r sided sciatica, degenerative arthritis involving the lower back, scoliosis, tinnitus, vitamin D deficiency, iron anemia, chronic thrombocytopenia, denies MRSA, C-DIFF -2018 History of Any Multi-Drug Resistant Organisms: MRSA Date of last positivie culture/infection: 03/17/18 MDRO Source:: stomach Past Surgical History: Appendectomy, Cholecystectomy Additional Past Surgical History / Comment(s): EGDs/esophageal varicies b andings, colonoscopies. Past Anesthesia/Blood Transfusion Reactions: No Reported Reaction Additional Past Anesthesia/Blood Transfusion Reaction / Comment(s): after appendix removed sob Past Psychological History: Anxiety, Depression Smoking Status: Never smoker Past Alcohol Use History: Heavy Past Drug Use History: None Reported - Past Family History Mother Family Medical History: COPD, CVA/TIA, Dementia Additional Family Medical History / Comment(s): from a stroke Father Family Medical History: Pneumonia Additional Family Medical History / Comment(s): Father of pneumonia when he was close to 80 yrs old. General Exam Limitations: no limitations General appearance: alert, in no apparent distress Head exam: Present: normocephalic Eye exam: Present: normal appearance Neck exam: Present: normal inspection Respiratory exam: Present: normal lung sounds bilaterally Cardiovascular Exam: Present: tachycardia Expanded Peripheral pulses: 2+: Radial (R), Radial (L), Posterior Tibialis (R), Posterior Tibialis (L) GI/Abdominal exam: Present: soft. Absent: tenderness Extremities exam: Present: normal inspection. Absent: pedal edema, calf tenderness Neurological exam: Present: alert Psychiatric exam: Present: normal affect, normal mood Skin exam: Present: normal color Course Vital Signs 01/30/22 01/30/22 18:55 19:33 Temperature 98.5 F Pulse Rate 123 H 120 H Respiratory 18 22 Rate Blood Pressure 121/91 144/99 O2 Sat by Pulse 96 95 Oximetry EKG Findings - EKG Comments: EKG Findings:: Sinus tachycardia 124. ME 164. QRS 75. QT 299. QTC 373. Normal axis. LVH criteria. No acute ST change. Medical Decision Making - Medical Decision Making Patient reevaluated and improved however still having some discomfort. Patient updated. Dr. Beck has been paged. Heart rate 113. Case was discussed with Dr. Beck, who will admit his patient. No consults at this time. - Lab Data Result diagrams: 01/30/22 19:12 01/30/22 19:12 Lab Results 01/30/22 01/30/22 01/30/22 Range/Units 19:12 19:12 19:12 WBC 2.9 L (3.8-10.6) k/uL RBC 3.69 L (4.30-5.90) m/uL Hgb 12.1 L D (13.0-17.5) gm/dL Hct 35.6 L (39.0-53.0) % MCV 96.4 (80.0-100.0) fL MCH 32.9 (25.0-35.0) pg MCHC 34.2 (31.0-37.0) g/dL RDW 16.1 H (11.5-15.5) % Plt Count 116 L (150-450) k/uL MPV 9.1 Neutrophils % 63 % Lymphocytes % 27 % Monocytes % 6 % Eosinophils % 1 % Basophils % 0 % Neutrophils # 1.8 (1.3-7.7) k/uL Lymphocytes # 0.8 L (1.0-4.8) k/uL Monocytes # 0.2 (0-1.0) k/uL Eosinophils # 0.0 (0-0.7) k/uL Basophils # 0.0 (0-0.2) k/uL Anisocytosis Slight PT 15.9 H (9.0-12.0) sec INR 1.5 H (<1.2) APTT 33.8 H (22.0-30.0) sec D-Dimer 0.29 (<0.60) mg/L FEU Sodium 138 (137-145) mmol/L Potassium 4.3 (3.5-5.1) mmol/L Chloride 104 (98-107) mmol/L Carbon Dioxide 21 L (22-30) mmol/L Anion Gap 13 mmol/L BUN 21 H (9-20) mg/dL Creatinine 1.36 H (0.66-1.25) mg/dL Est GFR (CKD-EPI)AfAm 63 (>60 ml/min/1.73 sqM) Est GFR (CKD-EPI)NonAf 54 (>60 ml/min/1.73 sqM) Glucose 148 H (74-99) mg/dL Calcium 10.6 H (8.4-10.2) mg/dL Magnesium 1.3 L (1.6-2.3) mg/dL Total Bilirubin 0.3 (0.2-1.3) mg/dL AST 93 H (17-59) U/L ALT 52 H (4-49) U/L Alkaline Phosphatase 115 (38-126) U/L Troponin I (0.000-0.034) ng/mL Total Protein 6.5 (6.3-8.2) g/dL Albumin 3.4 L (3.5-5.0) g/dL Amylase 82 (30-110) U/L Lipase 172 (23-300) U/L Serum Alcohol 16 mg/dL Coronavirus (PCR) (Not Detectd) 01/30/22 01/30/22 Range/Units 19:12 19:12 WBC (3.8-10.6) k/uL RBC (4.30-5.90) m/uL Hgb (13.0-17.5) gm/dL Hct (39.0-53.0) % MCV (80.0-100.0) fL MCH (25.0-35.0) pg MCHC (31.0-37.0) g/dL RDW (11.5-15.5) % Plt Count (150-450) k/uL MPV Neutrophils % % Lymphocytes % % Monocytes % % Eosinophils % % Basophils % % Neutrophils # (1.3-7.7) k/uL Lymphocytes # (1.0-4.8) k/uL Monocytes # (0-1.0) k/uL Eosinophils # (0-0.7) k/uL Basophils # (0-0.2) k/uL Anisocytosis PT (9.0-12.0) sec INR (<1.2) APTT (22.0-30.0) sec D-Dimer (<0.60) mg/L FEU Sodium (137-145) mmol/L Potassium (3.5-5.1) mmol/L Chloride (98-107) mmol/L Carbon Dioxide (22-30) mmol/L Anion Gap mmol/L BUN (9-20) mg/dL Creatinine (0.66-1.25) mg/dL Est GFR (CKD-EPI)AfAm (>60 ml/min/1.73 sqM) Est GFR (CKD-EPI)NonAf (>60 ml/min/1.73 sqM) Glucose (74-99) mg/dL Calcium (8.4-10.2) mg/dL Magnesium (1.6-2.3) mg/dL Total Bilirubin (0.2-1.3) mg/dL AST (17-59) U/L ALT (4-49) U/L Alkaline Phosphatase (38-126) U/L Troponin I <0.012 (0.000-0.034) ng/mL Total Protein (6.3-8.2) g/dL Albumin (3.5-5.0) g/dL Amylase (30-110) U/L Lipase (23-300) U/L Serum Alcohol mg/dL Coronavirus (PCR) Not Detected (Not Detectd) - Radiology Data Radiology results: image reviewed (Chest x-ray shows no acute process pulmonary fibrotic changes. No significant change from prior.) Disposition Clinical Impression: Chest pain, Sinus tachycardia Disposition: ADMITTED IP TO THIS HOSP Is patient prescribed a controlled substance at d/c from ED?: No Referrals: Doug Beck MD [Primary Care Provider] - 1-2 days Time of Disposition: 20:45
[2022-01-30] MEDS ORDERED: ONDANSETRON 4 MG/2 ML VIAL IVP STA (19:30)
[2022-01-30 19:35] LABS: Anisocytosis Slight; Basophils % (A) 0 %; Eosinophils % (A) 1 %; HCT 35.6 % (39.0-53.0); Lymphocytes # (A) 0.8 k/uL (1.0-4.8); Lymphocytes % (A) 27 %; MCH 32.9 pg (25.0-35.0); MCHC 34.2 g/dL (31.0-37.0); MCV 96.4 fL (80.0-100.0); Mean Platelet Volume 9.1; Monocytes # (A) 0.2 k/uL (0-1.0); Monocytes % (A) 6 %; Neutrophils # (A) 1.8 k/uL (1.3-7.7); Neutrophils % (A) 63 %; Platelet Count 116 k/uL (150-450); RBC 3.69 m/uL (4.30-5.90); RDW 16.1 % (11.5-15.5); WBC 2.9 k/uL (3.8-10.6)
[2022-01-30 19:38] LABS: HGB 12.1 gm/dL (13.0-17.5)
[2022-01-30 19:49] LABS: INR 1.5 (<1.2); Partial Thromboplastin Time 33.8 sec (22.0-30.0); Prothrombin Time 15.9 sec (9.0-12.0)
[2022-01-30 19:56] LABS: Albumin 3.4 g/dL (3.5-5.0); Calcium 10.6 mg/dL (8.4-10.2); Magnesium 1.3 mg/dL (1.6-2.3); Potassium 4.3 mmol/L (3.5-5.1); Total Bilirubin 0.3 mg/dL (0.2-1.3); Total Protein 6.5 g/dL (6.3-8.2)
[2022-01-30] MEDS ORDERED: MAGNESIUM SULFATE-D5W PMX 1 GM in DEXTROSE/WATER 1 100ML.BAG IVPB ONE (20:01)
--- NOTE | 2022-01-30 20:14 | XR ---
EXAMINATION TYPE: XR chest 2V DATE OF EXAM: 01/30/2022 COMPARISON: 01/15/2022 HISTORY: Chest pain TECHNIQUE: 2 view FINDINGS: Heart is normal. There is coarse interstitial density in the lung guadalupe and more on the le ft side. There are no hilar masses. Thoracic aorta is atheromatous. There is no pleural effusion. The re are no hilar masses. There are chest leads. IMPRESSION: No active cardiopulmonary disease. Normal heart and atheromatous aorta. Pulmonary fibroti c changes. No significant change compared to old exams
[2022-01-30] MEDS ORDERED: NITROGLYCERIN SL TABS 0.4 MG TAB SUBLINGUAL PRN (20:45)
[2022-01-30] MEDS ORDERED: cloNIDine HCL 0.1 MG TAB PO PRN (20:46)
[2022-01-30] MEDS ORDERED: LORazepam 2 MG/ML INJ IV PRN ×4 (20:47)
[2022-01-30] MEDS: MAGNESIUM OXIDE 400 MG TAB PO SCH (22:39)
[2022-01-30] MEDS: SODIUM CHLORIDE 0.9% 1,000 ML IV SCH (22:39)
[2022-01-31] MEDS: IPRATROPIUM-ALBUTEROL 3 ML NEB INHALATION PRN ×3 (07:46→15:24)
[2022-01-31] MEDS: MULTIVITAMINS, THERA 1 EACH TAB PO SCH (09:59)
[2022-01-31] MEDS: ASPIRIN 325 MG TAB PO SCH (09:59)
[2022-01-31] MEDS: amLODIPine 10 MG TAB PO SCH (09:59)
[2022-01-31] MEDS: PANTOPRAZOLE 40 MG TABLET PO SCH (09:59)
[2022-01-31] MEDS: MAGNESIUM OXIDE 400 MG TAB PO SCH ×2 (09:59→20:11)
[2022-01-31] MEDS: ATORVASTATIN 40 MG TAB PO SCH (09:59)
[2022-01-31 10:11] LABS: Chol/HDL Ratio 4.69 Ratio; LDL Cholesterol,Calculated 81.9 mg/dL (0.0-131.0)
[2022-01-31] MEDS ORDERED: LORazepam 1 MG/0.5 ML VIAL IV PRN ×3 (10:50→10:51)
[2022-01-31] MEDS: LORazepam 1 MG/0.5 ML VIAL IV PRN ×2 (10:55→20:11)
[2022-01-31] MEDS ORDERED: THIAMINE 100 MG TAB PO SCH (12:30)
[2022-01-31] MEDS: SODIUM CHLORIDE 0.9% 1,000 ML IV SCH ×2 (14:31→18:01)
[2022-02-01] MEDS ORDERED: IPRATROPIUM-ALBUTEROL 3 ML NEB INHALATION PRN (08:25)
[2022-02-01] MEDS: IPRATROPIUM-ALBUTEROL 3 ML NEB INHALATION PRN (08:26)
[2022-02-01] MEDS ORDERED: IPRATROPIUM-ALBUTEROL 3 ML NEB INHALATION SCH (08:30)
--- NOTE | 2022-02-01 08:36 | HP ---
HISTORY AND PHYSICAL CHIEF COMPLAINT: Chest pain, tachycardia, and shortness of breath. HISTORY OF PRESENT ILLNESS: This is another admission for this 66-year-old white male. He is in and out of the hospital frequently. He does have a problem with hypertension. His major problem is alcohol consumption. Whenever he starts to drink, his blood pressure rises, he developed chest pain, then he comes in to the emergency room. He came in this time with complaints of chest pain and denied drinking alcohol, but his alcohol screen was positive. REVIEW OF SYSTEMS: He is feeling better and he is not having any fever, chills, hemoptysis, chest pain now. Review of systems is otherwise unremarkable and noncontributory and negative. Past medical history, family history, and personal and social histories are all negative and unchanged otherwise. PHYSICAL EXAMINATION: VITAL SIGNS: Blood pressure 131/92 with a pulse of 110 and regular, respirations of 35, and he is afebrile. GENERAL: He appeared to be in no acute distress. SKIN: Skin color is normal. Skin is dry. LYMPH NODES: Not enlarged. HEAD, EARS, EYES, NOSE, MOUTH AND THROAT: Normal. NECK: Neck veins not distended. CHEST: Clear. CARDIAC: Cardiac exam demonstrated tachycardia. ABDOMEN: Protuberant, soft and nontender without any definite visceromegaly or masses. Bowel sounds present. EXTREMITIES: Normal. NEUROLOGICAL: Intact. Admitted to the hospital with diagnosis of, 1. Chest pain. 2. Tachycardia. 3. History of hypertension. 4. Alcoholism. PLAN: 1. Bedrest. 2. IV fluids. 3. Monitor blood pressure and pulse. MMODL / IJN: [id number] /
[2022-02-01] MEDS: amLODIPine 10 MG TAB PO SCH (09:39)
[2022-02-01] MEDS: ASPIRIN 325 MG TAB PO SCH (09:39)
[2022-02-01] MEDS: MAGNESIUM OXIDE 400 MG TAB PO SCH (09:40)
[2022-02-01] MEDS: ATORVASTATIN 40 MG TAB PO SCH (09:40)
[2022-02-01] MEDS: PANTOPRAZOLE 40 MG TABLET PO SCH (09:40)
[2022-02-01] MEDS: MULTIVITAMINS, THERA 1 EACH TAB PO SCH (09:40)
[2022-02-01 10:29] VITALS: BP 154/90; PULSE 110; RESP 16; TEMP 98.5
--- NOTE | 2022-02-01 18:20 | PN ---
PROGRESS NOTE CHIEF COMPLAINT: Chest pain, hypertension, and alcoholism. HISTORY OF PRESENT ILLNESS: This gentleman is still having some chest pain, but he states it is better. He has no pleuritic component. Vital signs are normal. PHYSICAL EXAMINATION: CHEST: Clear. CARDIAC: Normal. ABDOMEN: Soft, nontender. IMPRESSION: 1. Chest pain. 2. Tachycardia. 3. Alcoholism. 4. Hypertension. PLAN: Progress activity and diet and probably home tomorrow. MMODL / IJN: [id number] /
--- NOTE | 2022-02-03 09:05 | DS ---
DISCHARGE SUMMARY CHIEF COMPLAINT: Chest pain, hypertension, and tachycardia. HISTORY OF PRESENT ILLNESS AND PHYSICAL EXAMINATION: Details of this man's history and physical can be found in the initial workup. LABORATORY STUDIES: While he is in the hospital, he had laboratory studies, details of which can be found in the laboratory section of his chart. COURSE IN THE HOSPITAL: After admission, he was placed on bedrest, started on intravenous fluids, and hypertension was treated. He was placed on CIWA protocol, but did not go into DTs. He continued to complain of a small amount of chest pain, but he always does. He was stable and doing well. It was felt that he could be discharged on the , and he will go home on his usual activity, diet, and medications. He will follow up in the office in several days. FINAL DIAGNOSES: 1. Tachycardia. 2. Chest pain. 3. Uncontrolled hypertension. 4. Alcoholism. OPERATIONS: None. CONSULTATION: None. CONDITION: He is improved. ROCIO / MICHAEL: [id number] /
== END 2022-02-01 11:24 | disposition home or self-care (01) | DRG 310 ==
LOC: EC 18:45 → 3SCARD 20:45
PROVIDERS: ADMIT Family Medicine; ATTEND Family Medicine
PROC: HZ2ZZZZ Detoxification Services for Substance Abuse Treatment (ICD-10-PCS; principal; 2022-01-30)
DX: R00.0 Tachycardia, unspecified (principal); I10 Essential (primary) hypertension; E11.9 Type 2 diabetes mellitus without complications; Z20.822 Contact with and (suspected) exposure to COVID-19; E78.5 Hyperlipidemia, unspecified; J44.9 Chronic obstructive pulmonary disease, unspecified; F10.20 Alcohol dependence, uncomplicated; D69.6 Thrombocytopenia, unspecified; E55.9 Vitamin D deficiency, unspecified; G89.29 Other chronic pain; M50.30 Other cervical disc degeneration, unspecified cervical region; K21.9 Gastro-esophageal reflux disease without esophagitis; K70.30 Alcoholic cirrhosis of liver without ascites; K57.90 Diverticulosis of intestine, part unspecified, without perforation or abscess without bleeding; H91.90 Unspecified hearing loss, unspecified ear; I48.91 Unspecified atrial fibrillation; Z79.01 Long term (current) use of anticoagulants; Z82.3 Family history of stroke; Z86.711 Personal history of pulmonary embolism; Z86.73 Personal history of transient ischemic attack (TIA), and cerebral infarction without residual deficits; Z88.8 Allergy status to other drugs, medicaments and biological substances; Z91.012 Allergy to eggs; Z91.040 Latex allergy status; Z91.018 Allergy to other foods; Z91.048 Other nonmedicinal substance allergy status; Z90.49 Acquired absence of other specified parts of digestive tract; Z87.19 Personal history of other diseases of the digestive system; Z87.01 Personal history of pneumonia (recurrent); Z86.14 Personal history of Methicillin resistant Staphylococcus aureus infection
CPT/HCPCS: 36415; 71046; 80053; 80061; 80320; 82150; 83690; 83735; 84484; 85025; 85379; 85610; 85730; 87635; 93005; 94640; 94760; 96365; 96375; 99285

== ENCOUNTER 2022-03-02 13:44 | Observation (INO) | payer MEDICARE, OTHER ==
[2022-03-02 14:41] LABS: Basophils % (A) 1 %; Eosinophils # (A) 0.1 k/uL (0-0.7); Eosinophils % (A) 2 %; HCT 39.7 % (39.0-53.0); HGB 13.6 gm/dL (13.0-17.5); Lymphocytes # (A) 1.1 k/uL (1.0-4.8); Lymphocytes % (A) 33 %; MCH 33.8 pg (25.0-35.0); MCHC 34.4 g/dL (31.0-37.0); MCV 98.3 fL (80.0-100.0); Mean Platelet Volume 8.7; Monocytes # (A) 0.2 k/uL (0-1.0); Monocytes % (A) 7 %; Neutrophils # (A) 1.9 k/uL (1.3-7.7); Neutrophils % (A) 58 %; Platelet Count 104 k/uL (150-450); RBC 4.03 m/uL (4.30-5.90); RDW 14.9 % (11.5-15.5); WBC 3.3 k/uL (3.8-10.6)
[2022-03-02 14:49] LABS: INR 1.5 (<1.2); Partial Thromboplastin Time 32.7 sec (22.0-30.0); Prothrombin Time 15.8 sec (9.0-12.0)
[2022-03-02 15:06] LABS: ALT 40 U/L (4-49); AST 85 U/L (17-59); African American GFR (CKD) >90 (>60 ml/min/1.73 sqM); Albumin 4.1 g/dL (3.5-5.0); Alkaline Phosphatase 100 U/L (38-126); Anion Gap 15 mmol/L; Blood Urea Nitrogen 10 mg/dL (9-20); Calcium 9.2 mg/dL (8.4-10.2); Carbon Dioxide 22 mmol/L (22-30); Chloride 104 mmol/L (98-107); Glucose 207 mg/dL (74-99); Magnesium 1.4 mg/dL (1.6-2.3); Non-African American GFR(CKD) 78 (>60 ml/min/1.73 sqM); Potassium 3.9 mmol/L (3.5-5.1); Sodium 141 mmol/L (137-145); Total Bilirubin 0.6 mg/dL (0.2-1.3); Total Protein 7.7 g/dL (6.3-8.2)
--- NOTE | 2022-03-02 15:49 | XR ---
EXAMINATION TYPE: XR chest 2V DATE OF EXAM: 03/02/2022 COMPARISON: Chest x-ray January 30, 2022 HISTORY: Chest pain. TECHNIQUE: Frontal and lateral views of the chest are obtained. FINDINGS: Parenchymal fibrotic changes greatest in the left lung are redemonstrated with some left-si ded volume loss again seen. There is no suspicious new focal air space opacity, pleural effusion, or pneumothorax seen. The cardiac silhouette size is stable and within normal limits. Underlying scoli osis redemonstrated. Cholecystectomy clips are noted. IMPRESSION: Chronic parenchymal fibrotic changes without acute pulmonary process.
[2022-03-02 16:04] LABS: Appearance,Urine Clear (Clear); Bilirubin,Urine Negative (Negative); Blood,Urine Negative (Negative); Color,Urine Light Yellow; Glucose,Urine (UA) Negative (Negative); Ketones,Urine Negative (Negative); Leukocyte Esterase,Urine Negative (Negative); Nitrite,Urine Negative (Negative); Protein,Urine Negative (Negative); Specific Gravity,Urine 1.004 (1.001-1.035); Urobilinogen,Urine <2.0 mg/dL (<2.0)
--- NOTE | 2022-03-02 18:48 | ED ---
General Adult HPI - General Chief complaint: Chest Pain Stated complaint: Chest Pain Time Seen by Provider: 03/02/22 18:10 Source: patient, RN notes reviewed, old records reviewed Mode of arrival: ambulatory Limitations: no limitations - History of Present Illness Initial comments: This is a 66-year-old male who presents emergency Department complaining of chest pain which started 3 days ago. Patient states the pain is the typical chest pain he has on a regular basis. Patient states she's been to the emergency department many times for the same pain. Patient denies any differences in the pain today compared to previous states. Patient states he is not any difficulty breathing. Patient denies radiation of the pain. Patient states he does have a dry cough. Patient denies any fever chills. Patient denies any abdominal pain patient denies any back pain. Patient denies any lightheadedness dizziness or near syncopal episode. Patient denies any swelling to the legs or calf tenderness. - Related Data Home Medications Medication Instructions Recorded Confirmed Folic Acid 1 mg PO DAILY 01/07/20 01/30/22 traZODone HCL 50 mg PO HS PRN 01/07/20 01/30/22 Ergocalciferol [Vitamin D2 (1250 1,250 mcg PO Q30D 10/30/20 01/30/22 Mcg = 71301 Iu)] Naproxen 500 mg PO BID PRN 10/30/20 01/30/22 Omeprazole 20 mg PO DAILY 03/02/21 01/30/22 Thiamine [Vitamin B-1] 100 mg PO W/LUNCH 07/21/21 01/30/22 Ipratropium-Albuterol Nebulize 3 ml INHALATION RT-QID PRN 01/16/22 01/30/22 [Duoneb 0.5 mg-3 mg/3 ml Soln] Losartan Potassium 100 mg PO DAILY 01/16/22 01/30/22 Potassium Chloride ER [K-Dur 20] 20 meq PO BID 01/16/22 01/30/22 Tamsulosin HCl [Flomax] 0.4 mg PO DAILY 01/16/22 01/30/22 cloNIDine HCL [Catapres] 0.3 mg PO TID PRN 01/16/22 01/30/22 Previous Rx's Medication Instructions Recorded Ferrous Sulfate [Iron (65 MG 325 mg PO DAILY #30 tab 06/07/19 Elemental)] Magnesium Oxide [Mag-Ox] 400 mg PO BID #60 tab 04/03/21 Atorvastatin [Lipitor] 40 mg PO DAILY 30 Days #30 tab 07/25/21 Cyclobenzaprine [Flexeril] 10 mg PO TID PRN #30 tab 07/25/21 Sucralfate [Carafate] 1 gm PO AC-TID #90 tablet 07/25/21 Metoprolol Succinate (ER) [Toprol 100 mg PO DAILY #30 09/26/21 XL] Albuterol Inhaler [Ventolin Hfa 2 puff INHALATION RT-QID 5 Days #8 01/21/22 Inhaler] gm Budesonide [Pulmicort] 0.5 mg INHALATION BID 5 Days #60 ml 01/21/22 Rivaroxaban [Xarelto] 20 mg PO DAILY 30 Days #30 tab 01/21/22 amLODIPine [Norvasc] 10 mg PO DAILY #30 tab 01/21/22 Allergies Allergy/AdvReac Type Severity Reaction Status Date / Time adhesive tape Allergy Rash/Hives Verified 03/02/22 14:14 latex Allergy Rash/Hives Verified 03/02/22 14:14 lisinopril Allergy EYES Verified 03/02/22 14:14 BURN&ITCH/WEAKNESS egg AdvReac Nausea & Verified 03/02/22 14:14 Vomiting tomato AdvReac Nausea & Verified 03/02/22 14:14 Vomiting & Diarrhea Review of Systems ROS Statement: Those systems with pertinent positive or pertinent negative responses have been documented in the HPI. ROS Other: All systems not noted in ROS Statement are negative. Past Medical History Past Medical History: Atrial Fibrillation, Chest Pain / Angina, COPD, CVA/TIA, Diabetes Mellitus, GERD/Reflux, GI Bleed, Hearing Disorder / Deafness, Hyperlipidemia, Hypertension, Liver Disease, Pneumonia, Prostate Disorder, Pulmonary Embolus (PE) Additional Past Medical History / Comment(s): Pt recently hospitalized at [facility] with pneumonia. Other hx: GI bleed/ esophageal varicies banded. Other hx: Alcoholism, alcohol withdrawal DTs and possibly a seizure in 2018 r/t withdrawal, chronic alcoholic cirrhosis with portal hypertension and previous history of upper and lower GI bleeding, esophageal varices, previous history of childhood seizure which he outgrew not taking any antiepileptic medication, pulmonary embolism x 2 R lung, TIA, diverticulosis, chronic lower bilateral extremity ankle edema if he walks a lot, previous history of septicemia, cervical disc disease, chronic neck pain, chronic back pain with r sided sciatica, degenerative arthritis involving the lower back, scoliosis, tinnitus, vitamin D deficiency, iron anemia, chronic thrombocytopenia, denies MRSA, C-DIFF -2018 History of Any Multi-Drug Resistant Organisms: MRSA Date of last positivie culture/infection: 03/17/18 MDRO Source:: stomach Past Surgical History: Appendectomy, Cholecystectomy Additional Past Surgical History / Comment(s): EGDs/esophageal varicies bandings, colonoscopies. Past Anesthesia/Blood Transfusion Reactions: No Reported Reaction Additional Past Anesthesia/Blood Transfusion Reaction / Comment(s): after appe ndix removed sob Past Psychological History: Anxiety, Depression Smoking Status: Never smoker Past Alcohol Use History: Heavy Past Drug Use History: None Reported - Past Family History Mother Family Medical History: COPD, CVA/TIA, Dementia Additional Family Medical History / Comment(s): from a stroke Father Family Medical History: Pneumonia Additional Family Medical History / Comment(s): Father of pneumonia when he was close to 80 yrs old. General Exam - General Exam Comments Initial Comments: GENERAL: Patient is well-developed and well-nourished. Patient is nontoxic and well- hydrated and is in no acute distress. ENT: Neck is soft and supple. No significant lymphadenopathy is noted. Oropharynx is clear. Moist mucous membranes. Neck has full range of motion without eliciting any pain. EYES: The sclera were anicteric and conjunctiva were pink and moist. Extraocular movements were intact and pupils were equal round and reactive to light. Eyelids were unremarkable. PULMONARY: Unlabored respirations. Good breath sounds bilaterally. No audible rales rhon chi or wheezing was noted. CARDIOVASCULAR: There is a regular rate and rhythm without any murmurs gallops or rubs. ABDOMEN: Soft and nontender with normal bowel sounds. SKIN: Skin is clear with no lesions or rashes and otherwise unremarkable. NEUROLOGIC: Patient is alert and oriented x3. Cranial nerves II through XII are grossly intact. Motor and sensory are also intact. Normal speech, volume and content. Symmetrical smile. MUSCULOSKELETAL: Normal extremities with adequate strength and full range of motion. LYMPHATICS: No significant lymphadenopathy is noted PSYCHIATRIC: Normal psychiatric evaluation. Limitations: no limitations Course Vital Signs 03/02/22 03/02/22 03/02/22 14:11 18:41 19:30 Temperature 98.2 F 98.6 F Pulse Rate 120 H 106 H 101 H Respiratory 20 20 19 Rate Blood Pressure 158/90 178/108 178/108 O2 Sat by Pulse 97 98 97 Oximetry Medical Decision Making - Medical Decision Making EKG shows sinus tachycardia at 111 bpm HI interval 176 QRS is 76 QT interval 336 QTC is 42 per patient's EKG shows no ST segment elevation or depression. Chest x-ray shows no acute abnormality. I spoke with Dr. Bajwa and he agreed to admit the patient admitted the patient I consult cardiology. Patient's blood pressure remained elevated so I gave the patient some hydralazine emergency department. - Lab Data Result diagrams: 03/02/22 14:21 03/02/22 14:21 Lab Results 03/02/22 03/02/22 03/02/22 Range/Units 14:21 14:21 14:21 WBC 3.3 L (3.8-10.6) k/uL RBC 4.03 L (4.30-5.90) m/uL Hgb 13.6 (13.0-17.5) gm/dL Hct 39.7 (39.0-53.0) % MCV 98.3 (80.0-100.0) fL MCH 33.8 (25.0-35.0) pg MCHC 34.4 (31.0-37.0) g/dL RDW 14.9 (11.5-15.5) % Plt Count 104 L (150-450) k/uL MPV 8.7 Neutrophils % 58 % Lymphocytes % 33 % Monocytes % 7 % Eosinophils % 2 % Basophils % 1 % Neutrophils # 1.9 (1.3-7.7) k/uL Lymphocytes # 1.1 (1.0-4.8) k/uL Monocytes # 0.2 (0-1.0) k/uL Eosinophils # 0.1 (0-0.7) k/uL Basophils # 0.0 (0-0.2) k/uL PT 15.8 H (9.0-12.0) sec INR 1.5 H (<1.2) APTT 32.7 H (22.0-30.0) sec Sodium 141 (137-145) mmol/L Potassium 3.9 (3.5-5.1) mmol/L Chloride 104 (98-107) mmol/L Carbon Dioxide 22 (22-30) mmol/L Anion Gap 15 mmol/L BUN 10 (9-20) mg/dL Creatinine 1.01 (0.66-1.25) mg/dL Est GFR (CKD-EPI)AfAm >90 (>60 ml/min/1.73 sqM) Est GFR (CKD-EPI)NonAf 78 (>60 ml/min/1.73 sqM) Glucose 207 H (74-99) mg/dL Calcium 9.2 (8.4-10.2) mg/dL Magnesium 1.4 L (1.6-2.3) mg/dL Total Bilirubin 0.6 (0.2-1.3) mg/dL AST 85 H (17-59) U/L ALT 40 (4-49) U/L Alkaline Phosphatase 100 (38-126) U/L Troponin I (0.000-0.034) ng/mL Total Protein 7.7 (6.3-8.2) g/dL Albumin 4.1 (3.5-5.0) g/dL Urine Color Urine Appearance (Clear) Urine pH (5.0-8.0) Ur Specific [place] (1.001-1.035) Urine Protein (Negative) Urine Glucose (UA) (Negative) Urine Ketones (Negative) Urine Blood (Negative) Urine Nitrite (Negative) Urine Bilirubin (Negative) Urine Urobilinogen (<2.0) mg/dL Ur Leukocyte Esterase (Negative) Coronavirus (PCR) (Not Detectd) 03/02/22 03/02/22 03/02/22 Range/Units 14:21 14:21 15:44 WBC (3.8-10.6) k/uL RBC (4.30-5.90) m/uL Hgb (13.0-17.5) gm/dL Hct (39.0-53.0) % MCV (80.0-100.0) fL MCH (25.0-35.0) pg MCHC (31.0-37.0) g/dL RDW (11.5-15.5) % Plt Count (150-450) k/uL MPV Neutrophils % % Lymphocytes % % Monocytes % % Eosinophils % % Basophils % % Neutrophils # (1.3-7.7) k/uL Lymphocytes # (1.0-4.8) k/uL Monocytes # (0-1.0) k/uL Eosinophils # (0-0.7) k/uL Basophils # (0-0.2) k/uL PT (9.0-12.0) sec INR (<1.2) APTT (22.0-30.0) sec Sodium (137-145) mmol/L Potassium (3.5-5.1) mmol/L Chloride (98-107) mmol/L Carbon Dioxide (22-30) mmol/L Anion Gap mmol/L BUN (9-20) mg/dL Creatinine (0.66-1.25) mg/dL Est GFR (CKD-EPI)AfAm (>60 ml/min/1.73 sqM) Est GFR (CKD-EPI)NonAf (>60 ml/min/1.73 sqM) Glucose (74-99) mg/dL Calcium (8.4-10.2) mg/dL Magnesium (1.6-2.3) mg/dL Total Bilirubin (0.2-1.3) mg/dL AST (17-59) U/L ALT (4-49) U/L Alkaline Phosphatase (38-126) U/L Troponin I <0.012 (0.000-0.034) ng/mL Total Protein (6.3-8.2) g/dL Albumin (3.5-5.0) g/dL Urine Color Light Yellow Urine Appearance Clear (Clear) Urine pH 7.0 (5.0-8.0) Ur Specific [place] 1.004 (1.001-1.035) Urine Protein Negative (Negative) Urine Glucose (UA) Negative (Negative) Urine Ketones Negative (Negative) Urine Blood Negative (Negative) Urine Nitrite Negative (Negative) Urine Bilirubin Negative (Negative) Urine Urobilinogen <2.0 (<2.0) mg/dL Ur Leukocyte Esterase Negative (Negative) Coronavirus (PCR) Not Detected (Not Detectd) 03/02/22 Range/Units 18:45 WBC (3.8-10.6) k/uL RBC (4.30-5.90) m/uL Hgb (13.0-17.5) gm/dL Hct (39.0-53.0) % MCV (80.0-100.0) fL MCH (25.0-35.0) pg MCHC (31.0-37.0) g/dL RDW (11.5-15.5) % Plt Count (150-450) k/uL MPV Neutrophils % % Lymphocytes % % Monocytes % % Eosinophils % % Basophils % % Neutrophils # (1.3-7.7) k/uL Lymphocytes # (1.0-4.8) k/uL Monocytes # (0-1.0) k/uL Eosinophils # (0-0.7) k/uL Basophils # (0-0.2) k/uL PT (9.0-12.0) sec INR (<1.2) APTT (22.0-30.0) sec Sodium (137-145) mmol/L Potassium (3.5-5.1) mmol/L Chloride (98-107) mmol/L Carbon Dioxide (22-30) mmol/L Anion Gap mmol/L BUN (9-20) mg/dL Creatinine (0.66-1.25) mg/dL Est GFR (CKD-EPI)AfAm (>60 ml/min/1.73 sqM) Est GFR (CKD-EPI)NonAf (>60 ml/min/1.73 sqM) Glucose (74-99) mg/dL Calcium (8.4-10.2) mg/dL Magnesium (1.6-2.3) mg/dL Total Bilirubin (0.2-1.3) mg/dL AST (17-59) U/L ALT (4-49) U/L Alkaline Phosphatase (38-126) U/L Troponin I <0.012 (0.000-0.034) ng/mL Total Protein (6.3-8.2) g/dL Albumin (3.5-5.0) g/dL Urine Color Urine Appearance (Clear) Urine pH (5.0-8.0) Ur Specific [place] (1.001-1.035) Urine Protein (Negative) Urine Glucose (UA) (Negative) Urine Ketones (Negative) Urine Blood (Negative) Urine Nitrite (Negative) Urine Bilirubin (Negative) Urine Urobilinogen (<2.0) mg/dL Ur Leukocyte Esterase (Negative) Coronavirus (PCR) (Not Detectd) Disposition Clinical Impression: Chest pain, Hypertensive urgency Disposition: [facility] Referrals: Doug Beck MD [Primary Care Provider] - 1-2 days Time of Disposition: 19:39
[2022-03-02] MEDS ORDERED: NITROGLYCERIN SL TABS 0.4 MG TAB SUBLINGUAL PRN (19:40)
[2022-03-02] MEDS ORDERED: hydrALAZINE HCL 20 MG/ML 1 ML VIAL IVP STA (19:43)
[2022-03-02] MEDS: NITROGLYCERIN OINT 1 INCH/GM PACKET TOPICAL SCH (23:13)
[2022-03-03] MEDS: METOPROLOL SUCCINATE (ER) 100 MG TAB.ER.24H PO SCH ×2 (00:09→12:31)
[2022-03-03] MEDS ORDERED: ONDANSETRON 4 MG/2 ML VIAL IVP STA (01:53)
[2022-03-03] MEDS: NITROGLYCERIN OINT 1 INCH/GM PACKET TOPICAL SCH (06:03)
[2022-03-03 08:24] LABS: Glucose,Whole Blood 133 mg/dL (70-110)
[2022-03-03] MEDS: cloNIDine HCL 0.1 MG TAB PO SCH ×2 (08:42→16:48)
[2022-03-03] MEDS ORDERED: amLODIPine 10 MG TAB PO SCH (09:00)
[2022-03-03] MEDS ORDERED: ASPIRIN 325 MG TAB PO SCH (09:00)
[2022-03-03] MEDS ORDERED: ATORVASTATIN 40 MG TAB PO SCH (09:00)
[2022-03-03] MEDS ORDERED: LOSARTAN 50 MG TAB PO SCH (09:00)
[2022-03-03] MEDS ORDERED: RIVAROXABAN 20 MG TAB PO SCH (09:00)
--- NOTE | 2022-03-03 10:46 | P.CRDCN ---
History of Present Illness History of present illness: HISTORY OF PRESENTING ILLNESS This is a pleasant 66-year-old male past medical history significant for paroxysmal atrial fibrillation on Xarelto, alcohol abuse, hypertension, type 2 diabetes, hyperlipidemia, COPD, bronchitis, TIA. He does not follow with a registered public health nurse. We have asked to see patient in consultation for chest pain. Patient presents emergency department with complaints of chest discomfort and cough. He states that he woke up with constant left sided chest discomfort. It was non-radiating, non-exertional. He had a cough and his pain was aggravated by coughing. He also states he felt "feverish" the past few days. He denies any shortness of breath, diaphoresis, nausea, vomiting, lightheadedness, dizziness, syncope or near-syncope. He denies any symptoms of orthopnea or PND. She continues to have discomfort when he coughs. He states that he is compliant with his medications. His blood pressure is elevated. DIAGNOSTICS * EKG reveals sinus tachycardia, heart rate 111, no acute ischemia noted on EKG. Repeat EKG, sinus rhythm, heart rate 80, T wave inversion in lead III. * Echocardiogram 10/14/2021 revealed 5560 percent, mild LVH. Negative bubble study for shunts * Lexiscan stress test 03/2021 revealed no evidence of reversible ischemi * Chest xray parenchymal fibrotic changes, greatest in the left lung. Some left-sided volume loss. No acute heart failure noted. * Laboratory reviewed, troponin negative 3, WBC 3.3, hemoglobin 13.6, platelets 104, sodium 141, potassium 2.9, BUN 10, serum creatinine 1.0, magnesium 1.4, triglycerides 280, cholesterol 207, LDL 104, HR 47, covid 19 negative, D-Dimer negative * Current home medications include trazodone, clonidine 0.3 mg 3 times a day, amlodipine 10 mg daily, Xarelto 20 mg daily, potassium chloride, metoprolol succinate 100 mg daily, losartan 100 mg daily, atorvastatin 40 mg daily REVIEW OF SYSTEMS At the time of my exam: CONSTITUTIONAL: Denies fever or chills. CARDIOVASCULAR: +chest pain, Denies shortness of breath, orthopnea, PND or palpitations. RESPIRATORY: + cough. GASTROINTESTINAL: Denies abdominal pain, diarrhea, constipation, nausea or vomiting. MUSCULOSKELETAL: Denies myalgias. NEUROLOGIC: Denies numbness, tingling, headache or weakness. ENDOCRINE: Denies fatigue, weight change, polydipsia or polyurina. GENITOURINARY: Denies burning, hematuria or urgency with micturation. HEMATOLOGIC: Denies history of anemia or bleeding. PHYSICAL EXAMINATION Blood pressure 176/124, heart rate 88, afebrile, saturation 95% on room air CONSTITUTIONAL: No apparent distress. HEENT: Head is normocephalic. Pupils are equal, round. Sclerae anicteric. Mucous membranes of the mouth are moist. No JVD. No carotid bruit. CHEST EXAMINATION: Lungs are diminished bilaterally to auscultation. Chest wall tenderness is noted with deep breathing. HEART EXAMINATION: Regular rate and rhythm. S1, S2 heard. No murmurs, gallops or rub. ABDOMEN: Soft, nontender. Positive bowel sounds. EXTREMITIES: 2+ peripheral pulses, no lower extremity edema and no calf tenderness. SKIN: warm, dry NEUROLOGIC EXAMINATION: Patient is awake, alert and oriented x3. ASSESSMENT Chest discomfort, acute coronary syndrome ruled out, reproducible with a cough. Hypertensive urgency Paroxysmal atrial fibrillation on Xarelto Alcohol abuse History of Hypertension Type 2 diabetes Hyperlipidemia History of COPD History of TIA PLAN An acute coronary event has been ruled out with no EKG evidence of ischemia and negative cardiac enzymes. D-dimer negative Restart patient's home cardiac medications and monitor blood pressure No further inpatient workup for chest discomfort from a cardiology perspective. If blood pressure improved ok to discharge and recommend close follow up outpatient Thank you kindly for this consultation. Nurse practitioner note has been reviewed by physician. Signing provider agrees with the documented findings, assessment, and plan of care. Past Medical History Past Medical History: Atrial Fibrillation, Chest Pain / Angina, COPD, CVA/TIA, D iabetes Mellitus, GERD/Reflux, GI Bleed, Hearing Disorder / Deafness, Hyperlipidemia, Hypertension, Liver Disease, Pneumonia, Prostate Disorder, Pulmonary Embolus (PE) Additional Past Medical History / Comment(s): Pt recently hospitalized at [facility] with pneumonia. Other hx: GI bleed/ esophageal varicies banded. Other hx: Alcoholism, alcohol withdrawal DTs and possibly a seizure in 2018 r/t withdrawal, chronic alcoholic cirrhosis with portal hypertension and previous history of upper and lower GI bleeding, esophageal varices, previous history of childhood seizure which he outgrew not taking any antiepileptic medication, pulmonary embolism x 2 R lung, TIA, diverticulosis, chronic lower bilateral extremity ankle edema if he walks a lot, previous history of septicemia, cervical disc disease, chronic neck pain, chronic back pain with r sided sciatica, degenerative arthritis involving the lower back, scoliosis, tinnitus, vitamin D deficiency, iron anemia, chronic thrombocytopenia, denies MRSA, C-DIFF -2018 History of Any Multi-Drug Resistant Organisms: MRSA Date of last positivie culture/infection: 03/17/18 MDRO Source:: stomach Past Surgical History: Appendectomy, Cholecystectomy Additional Past Surgical History / Comment(s): EGDs/esophageal varicies bandings, colonoscopies. Past Anesthesia/Blood Transfusion Reactions: No Reported Reaction Additional Past Anesthesia/Blood Transfusion Reaction / Comment(s): after appendix removed sob Past Psychological History: Anxiety, Depression Smoking Status: Never smoker Past Alcohol Use History: Heavy Past Drug Use History: None Reported - Past Family History Mother Family Medical History: COPD, CVA/TIA, Dementia Additional Family Medical History / Comment(s): from a stroke Father Family Medical History: Pneumonia Additional Family Medical History / Comment(s): Father of pneumonia when he was close to 80 yrs old. Medications and Allergies Home Medications Medication Instructions Recorded Confirmed Type Ferrous Sulfate [Iron (65 MG 325 mg PO DAILY #30 tab 06/07/19 03/02/22 Rx Elemental)] Folic Acid 1 mg PO DAILY 01/07/20 03/02/22 History traZODone HCL 50 mg PO HS PRN 01/07/20 03/02/22 History Ergocalciferol [Vitamin D2 (1250 1,250 mcg PO Q30D 10/30/20 03/02/22 History Mcg = 38265 Iu)] Naproxen 500 mg PO BID PRN 10/30/20 03/02/22 History Omeprazole 20 mg PO DAILY 03/02/21 03/02/22 History Magnesium Oxide [Mag-Ox] 400 mg PO BID #60 tab 04/03/21 03/02/22 Rx Thiamine [Vitamin B-1] 100 mg PO W/LUNCH 07/21/21 03/02/22 History Atorvastatin [Lipitor] 40 mg PO DAILY 30 Days #30 tab 07/25/21 03/02/22 Rx Cyclobenzaprine [Flexeril] 10 mg PO TID PRN #30 tab 07/25/21 03/02/22 Rx Sucralfate [Carafate] 1 gm PO AC-TID #90 tablet 07/25/21 03/02/22 Rx Metoprolol Succinate (ER) [Toprol 100 mg PO DAILY #30 09/26/21 03/02/22 Rx XL] Ipratropium-Albuterol Nebulize 3 ml INHALATION RT-QID PRN 01/16/22 03/02/22 History [Duoneb 0.5 mg-3 mg/3 ml Soln] Losartan Potassium 100 mg PO DAILY 01/16/22 03/02/22 History Potassium Chloride ER [K-Dur 20] 20 meq PO BID 01/16/22 03/02/22 History Tamsulosin HCl [Flomax] 0.4 mg PO DAILY 01/16/22 03/02/22 History cloNIDine HCL [Catapres] 0.3 mg PO TID PRN 01/16/22 03/02/22 History Albuterol Inhaler [Ventolin Hfa 2 puff INHALATION RT-QID 5 Days #8 01/21/22 03/02/22 Rx Inhaler] gm Budesonide [Pulmicort] 0.5 mg INHALATION BID 5 Days #60 ml 01/21/22 03/02/22 Rx Rivaroxaban [Xarelto] 20 mg PO DAILY 30 Days #30 tab 01/21/22 03/02/22 Rx amLODIPine [Norvasc] 10 mg PO DAILY #30 tab 01/21/22 03/02/22 Rx Allergies Allergy/AdvReac Type Severity Reaction Status Date / Time adhesive tape Allergy Rash/Hives Verified 03/02/22 20:43 latex Allergy Rash/Hives Verified 03/02/22 20:43 lisinopril Allergy Eyes Verified 03/02/22 20:43 burn/Itching/Weakness egg AdvReac Nausea & Verified 03/02/22 20:43 Vomiting tomato AdvReac Nausea & Verified 03/02/22 20:43 Vomiting & Diarrhea Physical Exam Vitals: Vital Signs Temp Pulse Pulse Resp BP BP Pulse Ox 03/03/22 08:11 98.2 F 88 17 176/124 95 03/03/22 05:17 99.2 F 86 18 157/113 96 03/02/22 23:00 132 H 148/95 03/02/22 22:59 149 H 18 171/108 96 03/02/22 20:18 145/84 03/02/22 19:30 98.6 F 101 H 19 178/108 97 03/02/22 18:41 106 H 20 178/108 98 03/02/22 14:11 98.2 F 120 H 20 158/90 97 Results 03/02/22 14:21 03/02/22 14:21 Cardiac Enzymes 03/02/22 03/02/22 03/02/22 Range/Units 14:21 14:21 18:45 AST 85 H (17-59) U/L Troponin I <0.012 <0.012 (0.000-0.034) ng/mL 03/02/22 Range/Units 21:31 AST (17-59) U/L Troponin I <0.012 (0.000-0.034) ng/mL Coagulation 03/02/22 Range/Units 14:21 PT 15.8 H (9.0-12.0) sec APTT 32.7 H (22.0-30.0) sec CBC 03/02/22 Range/Units 14:21 WBC 3.3 L (3.8-10.6) k/uL RBC 4.03 L (4.30-5.90) m/uL Hgb 13.6 (13.0-17.5) gm/dL Hct 39.7 (39.0-53.0) % Plt Count 104 L (150-450) k/uL Comprehensive Metabolic Panel 03/02/22 Range/Units 14:21 Sodium 141 (137-145) mmol/L Potassium 3.9 (3.5-5.1) mmol/L Chloride 104 (98-107) mmol/L Carbon Dioxide 22 (22-30) mmol/L BUN 10 (9-20) mg/dL Creatinine 1.01 (0.66-1.25) mg/dL Glucose 207 H (74-99) mg/dL Calcium 9.2 (8.4-10.2) mg/dL AST 85 H (17-59) U/L ALT 40 (4-49) U/L Alkaline Phosphatase 100 (38-126) U/L Total Protein 7.7 (6.3-8.2) g/dL Albumin 4.1 (3.5-5.0) g/dL Current Medications Generic Name Dose Route Start Last Admin Trade Name Freq PRN Reason Stop Dose Admin Aspirin 325 mg 03/03/22 09:00 03/03/22 08:14 Aspirin 325 Mg Tab PO 325 mg DAILY TANYA Administration Metoprolol Succinate 100 mg 03/03/22 00:15 03/03/22 00:09 Metoprolol Succinate (Er) 100 Mg Tab.Er.24h PO 100 mg DAILY TANYA Administration Nitroglycerin 1 inch 03/03/22 00:00 03/03/22 06:03 Nitroglycerin Oint 1 Inch/Gm Packet TOPICAL 1 inch Q6HR TANYA Administration Nitroglycerin 0.4 mg 03/02/22 19:40 03/02/22 23:12 Nitroglycerin Sl Tabs 0.4 Mg Tab SUBLINGUAL 0.4 mg Q5M PRN Administration Chest Pain 03/02/22 14:21 03/02/22 14:21
[2022-03-03] MEDS ORDERED: IPRATROPIUM-ALBUTEROL 3 ML NEB INHALATION PRN (10:47)
[2022-03-03 11:27] LABS: Glucose,Whole Blood 139 mg/dL (70-110)
[2022-03-03] MEDS: SUCRALFATE 1 GM TAB PO SCH ×2 (11:46→19:11)
[2022-03-03] MEDS: ALBUTEROL NEBULIZED 2.5 MG/3 ML INHALATION SCH ×2 (11:52→16:14)
[2022-03-03] MEDS ORDERED: THIAMINE 100 MG TAB PO SCH (12:30)
[2022-03-03 13:03] VITALS: RESP 16
[2022-03-03 13:22] LABS: Glucose,Whole Blood 119 mg/dL (70-110)
[2022-03-03 15:57] VITALS: BP 126/75; TEMP 98.3
[2022-03-03 16:24] VITALS: PULSE 74
[2022-03-03] MEDS ORDERED: BUDESONIDE 0.5 MG/2 ML NEBU INHALATION SCH (20:00)
[2022-03-03] MEDS ORDERED: POTASSIUM CHLORIDE ER 20 MEQ TAB.ER PO SCH (21:00)
[2022-03-03] MEDS ORDERED: MAGNESIUM OXIDE 400 MG TAB PO SCH (21:00)
--- NOTE | 2022-03-04 03:59 | HP ---
HISTORY AND PHYSICAL CHIEF COMPLAINT: Chest pain. HISTORY OF PRESENT ILLNESS: This is another recent admission for this 66-year-old white male. He comes in and out of the hospital regularly. His problems are related to alcoholism and not taking his medications. He came in on the night of admission complaining of chest pain and he had a blood pressure of 178/108. REVIEW OF SYSTEMS: He denied syncope, confusion, shortness of breath, abdominal pain, vomiting, diarrhea, etc. Past medical history, family history, personal and social histories are all otherwise unchanged from his discharge a week or 2 ago. PHYSICAL EXAMINATION: VITAL SIGNS: Blood pressure 178/108 with a pulse of 85, respirations 34. He is afebrile. GENERAL: He appeared to be well developed, well nourished, no acute distress. SKIN: Color is normal. Skin is warm and dry. LYMPH NODES: Not enlarged. HEAD, EARS, EYES, NOSE, MOUTH AND THROAT: Normal. CHEST: Clear. CARDIAC: Normal. ABDOMEN: Soft and nontender. IMPRESSION: 1. Chest pain. 2. Hypertension. 3. Alcoholism. 4. Noncompliant patient. PLAN: 1. Bedrest. 2. IV fluids. 3. Serial EKGs and enzymes. 4. Cardiology consult. MMODL / IJN: [id number] /
[2022-03-04] MEDS ORDERED: PANTOPRAZOLE 40 MG TABLET PO SCH (07:30)
[2022-03-04] MEDS ORDERED: TAMSULOSIN 0.4 MG CAP.ER.24H PO SCH (09:00)
[2022-03-04] MEDS ORDERED: METOPROLOL SUCCINATE (ER) 100 MG TAB.ER.24H PO SCH (09:00)
--- NOTE | 2022-03-04 21:51 | DS ---
DISCHARGE SUMMARY CHIEF COMPLAINT: Chest pain and hypertension. HISTORY OF PRESENT ILLNESS AND PHYSICAL EXAMINATION: Details of this man's history and physical can be found in the initial workup. LABORATORY STUDIES: While he was in the hospital, he had laboratory studies, details of which can be found in the laboratory section of his chart. COURSE IN THE HOSPITAL: After admission, he was placed on bedrest, he was placed on intravenous fluids and had serial EKGs and enzymes. They were all normal. His blood pressure came down. He was seen by Cardiology and cleared to be discharged home on his usual activity, diet, and medications, and he will follow up in the office in several days. FINAL DIAGNOSES: 1. Chest pain. 2. Hypertension. 3. Noncompliant individual. 4. Alcohol alcoholism. OPERATIONS: None. CONSULTATIONS: Cardiology. He is improved. MMODL / IJN: [id number] /
== END 2022-03-03 18:48 | disposition home or self-care (01) ==
LOC: EC 13:44 → 6NMEDSUR 19:44
PROVIDERS: ADMIT Family Medicine; ATTEND Family Medicine
DX: R07.89 Other chest pain (principal); I16.0 Hypertensive urgency; I10 Essential (primary) hypertension; F10.20 Alcohol dependence, uncomplicated; J44.9 Chronic obstructive pulmonary disease, unspecified; E11.9 Type 2 diabetes mellitus without complications; K21.9 Gastro-esophageal reflux disease without esophagitis; E78.5 Hyperlipidemia, unspecified; K57.90 Diverticulosis of intestine, part unspecified, without perforation or abscess without bleeding; M54.2 Cervicalgia; G89.29 Other chronic pain; M54.41 Lumbago with sciatica, right side; E55.9 Vitamin D deficiency, unspecified; D69.6 Thrombocytopenia, unspecified; D50.9 Iron deficiency anemia, unspecified; F41.9 Anxiety disorder, unspecified; I48.0 Paroxysmal atrial fibrillation; F32.A Depression, unspecified; H91.90 Unspecified hearing loss, unspecified ear; Z86.711 Personal history of pulmonary embolism; Z79.899 Other long term (current) drug therapy; Z86.73 Personal history of transient ischemic attack (TIA), and cerebral infarction without residual deficits; Z91.040 Latex allergy status; Z88.8 Allergy status to other drugs, medicaments and biological substances; Z79.01 Long term (current) use of anticoagulants; Z90.49 Acquired absence of other specified parts of digestive tract; Z82.3 Family history of stroke; Z82.5 Family history of asthma and other chronic lower respiratory diseases; Z20.822 Contact with and (suspected) exposure to COVID-19; Z91.199 Patient's noncompliance with other medical treatment and regimen due to unspecified reason
CPT/HCPCS: 96374; 96375; 99285; 36415; 94640 ×2; 94760; 93005 ×2; 85379; 80061; 80053; 83735; 84484; 85025; 85610; 85730; 81003; 87635; 71046; G0378 ×2; J0360; J2405

== ENCOUNTER 2022-03-21 06:51 | Inpatient (IN) | payer MEDICARE, OTHER ==
[2022-03-21] MEDS ORDERED: AZITHROMYCIN 500 MG in SODIUM CHLORIDE 0.9% 250 ML IVPB STA (12:58)
[2022-03-21] MEDS ORDERED: PNEUMONIA PROTOCOL UTILIZED 1 EACH MISC PO PRN (12:58)
--- NOTE | 2022-03-21 13:20 | XR ---
EXAMINATION TYPE: XR chest 2V DATE OF EXAM: 03/21/2022 9:06 AM COMPARISON: Chest radiographs from 03/02/2022. TECHNIQUE: XR chest 2V Frontal and lateral views of the chest. CLINICAL INDICATION: History of pulmonary embolism with cough and chest pain. FINDINGS: Lungs/Pleura: There are low lung volumes. There is no evidence of pleural effusion, focal consolidati on, or pneumothorax. Pulmonary vascularity: Mild pulmonary vascular congestion. Heart/mediastinum: Cardiomediastinal silhouette is enlarged and stable. Musculoskeletal: No acute osseous pathology. IMPRESSION: Cardiomegaly and mild pulmonary vascular congestion. Some of the pulmonary vascular congestion could represent low lung volume changes. Correlate with BNP for congestive heart failure.
[2022-03-21] MEDS ORDERED: LABETALOL SYRINGE 5 MG/ML IVP STA (15:51)
--- NOTE | 2022-03-21 17:16 | HP ---
HISTORY AND PHYSICAL CHIEF COMPLAINT: Shortness of breath and tachycardia. HISTORY OF PRESENT ILLNESS: This is another recent admission for this gentleman, who is in and out of the hospital frequently with chest pain, hypertension, alcoholism, etc. He presented to the emergency room this time with complaints of URI and shortness of breath. In the ER, he had a pulse of 130, and his x-ray suggested bilateral bronchial pneumonia. He is negative for COVID. REVIEW OF SYSTEMS: He has had no headaches, neurologic problems, cough, hemoptysis, sputum production, orthopnea, PND, chest pain, abdominal pain, nausea, vomiting, etc. Past medical history, family history, and personal and social histories are unchanged. PHYSICAL EXAMINATION: VITAL SIGNS: Blood pressure is 152/81 with a pulse of 94, respirations of 36, and he is afebrile. GENERAL: He appeared to be slightly pale, and he was short of breath. HEAD, EARS, EYES, NOSE, MOUTH, AND THROAT: Normal. CHEST: Demonstrated decreased breath sounds at the bases. CARDIAC: Normal except for the tachycardia. ABDOMEN: Soft and nontender. EXTREMITIES: Normal. NEUROLOGIC: He is intact. DIAGNOSES: He is admitted to the hospital with diagnoses: 1. Shortness of breath and tachycardia. 2. Rule out pneumonitis. 3. Rule out congestive heart failure. 4. Rule out pulmonary embolism. 5. History of alcoholism. PLAN: 1. Bedrest. 2. IV fluids. 3. BNP. 4. D-dimer. 5. Treat his shortness of breath symptomatically. MMODL / IJN: [id number] /
[2022-03-21 18:41] LABS: Basophils % (A) 1 %; Eosinophils # (A) 0.1 k/uL (0-0.7); Eosinophils % (A) 1 %; HCT 41.8 % (39.0-53.0); HGB 14.6 gm/dL (13.0-17.5); Lymphocytes # (A) 1.7 k/uL (1.0-4.8); Lymphocytes % (A) 33 %; MCH 34.3 pg (25.0-35.0); MCV 98.1 fL (80.0-100.0); Mean Platelet Volume 8.4; Monocytes # (A) 0.4 k/uL (0-1.0); Monocytes % (A) 8 %; Neutrophils # (A) 2.9 k/uL (1.3-7.7); Neutrophils % (A) 55 %; RBC 4.26 m/uL (4.30-5.90); RDW 14.2 % (11.5-15.5); WBC 5.2 k/uL (3.8-10.6)
[2022-03-21 18:42] LABS: Platelet Count 89 k/uL (150-450)
[2022-03-21] MEDS: ALBUTEROL NEBULIZED 2.5 MG/3 ML INHALATION SCH ×2 (18:48→19:03)
[2022-03-21 18:49] LABS: INR 1.2 (<1.2); Partial Thromboplastin Time 24.2 sec (22.0-30.0); Prothrombin Time 12.8 sec (9.0-12.0)
[2022-03-21] MEDS: BUDESONIDE 0.5 MG/2 ML NEBU INHALATION SCH (19:03)
[2022-03-21 20:03] LABS: ALT 105 U/L (4-49); AST 237 U/L (17-59); African American GFR (CKD) 57 (>60 ml/min/1.73 sqM); Albumin 4.3 g/dL (3.5-5.0); Albumin/Globulin Ratio 1.2; Alkaline Phosphatase 162 U/L (38-126); Anion Gap 20 mmol/L; Blood Urea Nitrogen 24 mg/dL (9-20); Calcium 9.6 mg/dL (8.4-10.2); Carbon Dioxide 20 mmol/L (22-30); Chloride 106 mmol/L (98-107); Globulin 3.6 g/dL; Glucose 106 mg/dL (74-99); Magnesium 1.3 mg/dL (1.6-2.3); Non-African American GFR(CKD) 49 (>60 ml/min/1.73 sqM); Potassium 4.1 mmol/L (3.5-5.1); Sodium 146 mmol/L (137-145); Total Protein 7.9 g/dL (6.3-8.2)
[2022-03-21] MEDS ORDERED: cloNIDine HCL 0.1 MG TAB PO PRN (20:52)
[2022-03-21] MEDS ORDERED: amLODIPine 10 MG TAB PO STA (20:53)
[2022-03-21] MEDS ORDERED: LOSARTAN 50 MG TAB PO STA (20:53)
[2022-03-21] MEDS: ONDANSETRON 4 MG/2 ML VIAL IVP PRN (21:43)
[2022-03-21] MEDS: MAGNESIUM OXIDE 400 MG TAB PO SCH (21:44)
[2022-03-22] MEDS ORDERED: NITROGLYCERIN SL TABS 0.4 MG TAB SUBLINGUAL ONE
[2022-03-22] MEDS ORDERED: NITROGLYCERIN SL TABS 0.4 MG TAB SUBLINGUAL PRN (00:03)
[2022-03-22] MEDS ORDERED: hydrALAZINE HCL 50 MG TAB PO STA (01:12)
[2022-03-22] MEDS: PANTOPRAZOLE 40 MG TABLET PO SCH ×2 (01:21→06:43)
[2022-03-22] MEDS: ONDANSETRON 4 MG/2 ML VIAL IVP PRN ×3 (03:00→21:12)
[2022-03-22] MEDS: BUDESONIDE 0.5 MG/2 ML NEBU INHALATION SCH ×2 (07:14→19:19)
[2022-03-22] MEDS: ALBUTEROL NEBULIZED 2.5 MG/3 ML INHALATION SCH ×4 (07:14→19:24)
[2022-03-22] MEDS: hydrALAZINE HCL 50 MG TAB PO SCH ×4 (08:04→22:23)
[2022-03-22] MEDS: amLODIPine 10 MG TAB PO SCH (08:04)
[2022-03-22] MEDS: LOSARTAN 50 MG TAB PO SCH (08:04)
[2022-03-22] MEDS: MAGNESIUM OXIDE 400 MG TAB PO SCH ×2 (08:04→21:09)
[2022-03-22] MEDS: ATORVASTATIN 40 MG TAB PO SCH (08:04)
[2022-03-22] MEDS: METOPROLOL SUCCINATE (ER) 100 MG TAB.ER.24H PO SCH (08:35)
[2022-03-22] MEDS: RIVAROXABAN 20 MG TAB PO SCH (08:35)
[2022-03-22] MEDS: SUCRALFATE 1 GM TAB PO SCH ×2 (11:17→18:46)
[2022-03-22] MEDS: THIAMINE 100 MG TAB PO SCH (11:18)
[2022-03-22] MEDS: ACETAMINOPHEN TAB 325 MG TAB PO PRN (11:19)
--- NOTE | 2022-03-22 13:35 | PN ---
PROGRESS NOTE DATE OF SERVICE: 03/22/2022 CHIEF COMPLAINT: Chest pain, shortness of breath, and hypertension. HISTORY OF PRESENT ILLNESS: This gentleman is still complaining of little bit of chest discomfort. His studies so far have been unrevealing. He is still complaining of a little bit of chest pain. His chest x-ray on admission did show some cardiomegaly and some possible vascular congestion, which would all be typical given his history. He is also an alcoholic. In the emergency room, his AST was 237, ALT was 105, alkaline phosphatase was also elevated at 162, however. BUN was 24 with a creatinine of 1.48. BNP is only 28. Other studies were unremarkable. REVIEW OF SYSTEMS: He has not had any diaphoresis, neurologic problems, headache, back pain, etc. Past medical history, family history, personal and social histories are all otherwise unremarkable and unchanged from his recent admitting and discharge summaries. He does not take his medications reliably. He denies drinking lately, but this is probably not accurate. PHYSICAL EXAMINATION: VITAL SIGNS: Blood pressure is 192/94 with a pulse of 120. He is afebrile. GENERAL: Appeared to be well developed, well nourished, in no acute distress. SKIN: Color is normal, skin is warm, dry. NECK: Lymph nodes are not enlarged. HEENT: Head, ears, eyes, nose, mouth and throat were normal. Neck veins are not distended. Thyroid not enlarged. CHEST: Clear. CARDIAC: Exam is normal sinus rhythm. ABDOMEN: Soft and nontender. There are no definite masses or visceromegaly. Bowel sounds are present. EXTREMITIES: Normal and neurologically he is intact. DIAGNOSES: He is admitted to the hospital with diagnoses, 1. Chest pain. 2. Possible congestive heart failure. 3. Alcoholism. 4. Hypertension. 5. Renal failure. 6. Elevated liver function studies. PLAN: 1. Bedrest. 2. IV fluids. 3. Control hypertension. 4. Evaluate liver function studies as well as abnormal renal functions. MMODL / IJN: [id number] /
[2022-03-22] MEDS ORDERED: VANCOMYCIN IV PER PHARMACY 1 EACH MISC MISCELLANE PRN (13:50)
[2022-03-22] MEDS: SODIUM CHLORIDE 0.9% 1,000 ML IV SCH ×2 (14:00→22:23)
[2022-03-22] MEDS: PANTOPRAZOLE 40 MG/10 ML VIAL IVP SCH ×2 (14:09→21:22)
[2022-03-22] MEDS ORDERED: VANCOMYCIN 1,500 MG in SODIUM CHLORIDE 0.9% 500 ML 500 ML IVPB SCH (15:00)
[2022-03-22] MEDS ORDERED: LORazepam 1 MG TAB PO PRN (15:49)
[2022-03-22] MEDS: IPRATROPIUM-ALBUTEROL 3 ML NEB INHALATION PRN (19:19)
[2022-03-22] MEDS: traZODone HCL 50 MG TAB PO PRN (21:09)
[2022-03-23] MEDS: SUCRALFATE 1 GM TAB PO SCH ×3 (06:24→16:47)
[2022-03-23] MEDS: SODIUM CHLORIDE 0.9% 1,000 ML IV SCH ×4 (06:24→20:44)
[2022-03-23 06:52] LABS: African American GFR (CKD) 35 (>60 ml/min/1.73 sqM); Anion Gap 7 mmol/L; Blood Urea Nitrogen 21 mg/dL (9-20); Calcium 7.8 mg/dL (8.4-10.2); Carbon Dioxide 25 mmol/L (22-30); Chloride 108 mmol/L (98-107); Glucose 121 mg/dL (74-99); Non-African American GFR(CKD) 30 (>60 ml/min/1.73 sqM); Potassium 2.9 mmol/L (3.5-5.1); Sodium 140 mmol/L (137-145)
--- NOTE | 2022-03-23 08:10 | P.CONS ---
History of Present Illness - Reason for Consult Consult date: 03/22/22 Positive blood culture Requesting physician: Doug Beck - Chief Complaint Increasing shortness of breath x few days - History of Present Illness Patient is a 66-year-old male with a past medical history pertinent for paroxysmal atrial fibrillation on Xarelto history of alcohol abuse hypertension type 2 diabetes mellitus hyperlipidemia COPD presenting to the ER for evaluation of left-sided chest pain increasing shortness of breath and cough symptom has been going on for few days before presentation to the hospital patient apparently did have a recent mission to the hospital with a similar symptom and was evaluated by cardiology services on March 02, 2022, patient has been complaining of a cough which is mild to moderate intensity with occasional sputum denies any hemoptysis patient denies having any nausea no vomiting no shortness of the food no abdominal pain no diarrhea patient on presentation to the hospital was afebrile and no fever has been recorded subsequently patient did have a normal white count with no left shift his BUN and creatinine is mildly elevated liver enzymes are mildly elevated lipase was normal patient did have a negative COVID and influenza testing patient did have a blood culture drawn which came back positive with gram-positive cocci that has prompted this infectious disease consultation patient did have a chest x-ray cardiomegaly mild pulmonary congestion pulmonary vascular congestion could be present low lung volumes did not mention any consolidation patient was started on vancomycin Review of Systems Positive point has been mentioned in the HPI rest of the systems are negative Past Medical History Past Medical History: Atrial Fibrillation, Chest Pain / Angina, COPD, CVA/TIA, Diabetes Mellitus, GERD/Reflux, GI Bleed, Hearing Disorder / Deafness, Hyperlipidemia, Hypertension, Liver Disease, Pneumonia, Prostate Disorder, Pulmonary Embolus (PE) Additional Past Medical History / Comment(s): Pt recently hospitalized at [facility] with pneumonia. Other hx: GI bleed/ esophageal varicies banded. Other hx: Alcoholism, alcohol withdrawal DTs and possibly a seizure in 2018 r/t withdrawal, chronic alcoholic cirrhosis with portal hypertension and previous history of upper and lower GI bleeding, esophageal varices, previous history of childhood seizure which he outgrew not taking any antiepileptic medication, pulmonary embolism x 2 R lung, TIA, diverticulosis, chronic lower bilateral extremity ankle edema if he walks a lot, previous history of septicemia, cervical disc disease, chronic neck pain, chronic back pain with r sided sciatica, degenerative arthritis involving the lower back, scoliosis, tinnitus, vitamin D deficiency, iron anemia, chronic thrombocytopenia, denies MRSA, C-DIFF History of Any Multi-Drug Resistant Organisms: MRSA Year Discovered:: 03/17/18 MDRO Source:: stomach Past Surgical History: Appendectomy, Cholecystectomy Additional Past Surgical History / Comment(s): EGDs/esophageal varicies bandings, colonoscopies. Past Anesthesia/Blood Transfusion Reactions: No Reported Reaction Additional Past Anesthesia/Blood Transfusion Reaction / Comm: after appendix removed sob Past Psychological History: Anxiety, Depression Additional Psychological History / Comment(s): Pt resides in a 3/4 house. He uses a cane prn. He gets [facility] by senior bus or cab or ambulance. Smoking Status: Never smoker Past Alcohol Use History: Heavy Additional Past Alcohol Use History / Comment(s): Pt has hx of alcoholism. He states he is HAS NOT DRANK IN A WEEK. PRIOR TO THAT HE DRANK A COUPLE PINTS OF WHISKEY A DAY. Past Drug Use History: None Reported - Past Family History Mother Family Medical History: COPD, CVA/TIA, Dementia Additional Family Medical History / Comment(s): from a stroke Father Family Medical History: Pneumonia Additional Family Medical History / Comment(s): Father of pneumonia when he was close to 80 yrs old. Medications and Allergies Home Medications Medication Instructions Recorded Confirmed Type Ferrous Sulfate [Iron (65 MG 325 mg PO DAILY #30 tab 06/07/19 03/21/22 Rx Elemental)] Folic Acid 1 mg PO DAILY 01/07/20 03/21/22 History traZODone HCL 50 mg PO HS PRN 01/07/20 03/21/22 History Ergocalciferol [Vitamin D2 (1250 1,250 mcg PO Q30D 10/30/20 03/21/22 History Mcg = 96440 Iu)] Naproxen 500 mg PO BID PRN 10/30/20 03/21/22 History Omeprazole 20 mg PO DAILY 03/02/21 03/21/22 History Magnesium Oxide [Mag-Ox] 400 mg PO BID #60 tab 04/03/21 03/21/22 Rx Thiamine [Vitamin B-1] 100 mg PO W/LUNCH 07/21/21 03/21/22 History Atorvastatin [Lipitor] 40 mg PO DAILY 30 Days #30 tab 07/25/21 03/21/22 Rx Cyclobenzaprine [Flexeril] 10 mg PO TID PRN #30 tab 07/25/21 03/21/22 Rx Sucralfate [Carafate] 1 gm PO AC-TID #90 tablet 07/25/21 03/21/22 Rx Metoprolol Succinate (ER) [Toprol 100 mg PO DAILY #30 09/26/21 03/21/22 Rx XL] Ipratropium-Albuterol Nebulize 3 ml INHALATION RT-QID PRN 01/16/22 03/21/22 History [Duoneb 0.5 mg-3 mg/3 ml Soln] Losartan Potassium 100 mg PO DAILY 01/16/22 03/21/22 History Potassium Chloride ER [K-Dur 20] 20 meq PO BID 01/16/22 03/21/22 History Tamsulosin HCl [Flomax] 0.4 mg PO DAILY 01/16/22 03/21/22 History cloNIDine HCL [Catapres] 0.3 mg PO TID PRN 01/16/22 03/21/22 History Albuterol Inhaler [Ventolin Hfa 2 puff INHALATION RT-QID 5 Days #8 01/21/22 03/21/22 Rx Inhaler] gm Budesonide [Pulmicort] 0.5 mg INHALATION BID 5 Days #60 ml 01/21/22 03/21/22 Rx Rivaroxaban [Xarelto] 20 mg PO DAILY 30 Days #30 tab 01/21/22 03/21/22 Rx amLODIPine [Norvasc] 10 mg PO DAILY #30 tab 01/21/22 03/21/22 Rx Allergies Allergy/AdvReac Type Severity Reaction Status Date / Time adhesive tape Allergy Rash/Hives Verified 03/21/22 15:27 latex Allergy Rash/Hives Verified 03/21/22 15:27 lisinopril Allergy Eyes Verified 03/21/22 15:27 burn/Itching/Weakness egg AdvReac Nausea & Verified 03/21/22 15:27 Vomiting tomato AdvReac Nausea & Verified 03/21/22 15:27 Vomiting & Diarrhea Physical Exam Vitals: Vital Signs Temp Pulse Pulse Resp BP BP BP 03/22/22 15:38 92 03/22/22 15:27 90 03/22/22 11:15 102 H 03/22/22 11:05 102 H 03/22/22 08:00 18 03/22/22 07:34 112 H 03/22/22 07:15 112 H 03/22/22 07:00 98 F 121 H 18 164/84 03/22/22 02:40 98.2 F 119 H 19 141/81 03/22/22 01:00 EST 17 172/105 03/22/22 00:20 112 H 19 166/105 03/22/22 00:10 149/110 03/22/22 00:06 98.0 F 113 H 20 182/117 03/21/22 23:41 169/98 03/21/22 22:55 110 H 171/101 03/21/22 19:18 104 H 03/21/22 19:06 105 H 03/21/22 18:45 98.1 F 106 H 17 192/94 03/21/22 18:04 98.2 F 105 H 18 163/120 180/83 03/21/22 17:55 98.2 F 101 H 20 165/92 Pulse Ox 03/22/22 15:38 03/22/22 15:27 03/22/22 11:15 03/22/22 11:05 03/22/22 08:00 03/22/22 07:34 03/22/22 07:15 96 03/22/22 07:00 93 L 03/22/22 02:40 96 03/22/22 01:00 EST 96 03/22/22 00:20 95 03/22/22 00:10 03/22/22 00:06 95 03/21/22 23:41 03/21/22 22:55 03/21/22 19:18 03/21/22 19:06 03/21/22 18:45 97 03/21/22 18:04 98 03/21/22 17:55 97 Intake and Output 03/22/22 03/22/22 03/22/22 06:59 14:59 22:59 Intake Total 118 Balance 118 Intake: Oral 118 Other: Voiding Method Toilet # Voids GENERAL DESCRIPTION: Elderly male lying in bed, no distress. No tachypnea or accessory muscle of respiration use. HEENT: Shows Pallor , no scleral icterus. Oral mucous membrane is dry. No p haryngeal erythema or thrush NECK: Trachea central, no thyromegaly. LUNGS: Unlabored breathing. Coarse breath sounds bilaterally. HEART: S1, S2, regular rate and rhythm. No loud murmur ABDOMEN: Soft, no tenderness , guarding or rigidity, no organomegaly EXTREMITIES: No edema of feet. SKIN: No rash, no masses palpable. NEUROLOGICAL: The patient is awake, alert, oriented x3, mood and affect normal. Results CBC & Chem 7: 04/06/22 08:23 04/06/22 08:23 Labs: Abnormal Lab Results - Last 24 Hours (Table) 03/21/22 03/21/22 03/21/22 Range/Units 08:30 08:30 08:30 RBC 4.26 L (4.30-5.90) m/uL Plt Count 89 L (150-450) k/uL PT 12.8 H (9.0-12.0) sec INR 1.2 H (<1.2) Sodium 146 H (137-145) mmol/L Carbon Dioxide 20 L (22-30) mmol/L BUN 24 H (9-20) mg/dL Creatinine 1.48 H (0.66-1.25) mg/dL Glucose 106 H (74-99) mg/dL Magnesium 1.3 L (1.6-2.3) mg/dL AST 237 H (17-59) U/L ALT 105 H (4-49) U/L Alkaline Phosphatase 162 H (38-126) U/L Microbiology - Last 24 Hours (Table) 03/21/22 13:40 Blood Culture - Final Blood Assessment and Plan (1) Positive blood cultures Status: Acute Code(s): R78.81 - BACTEREMIA SNOMED Code(s): 699973046 Plan: 1patient with gram-positive bacteremia in this patient predominantly with the respiratory symptoms however chest x-ray was negative for any consolidation patient not running any fever White count is normal concern for possible skin contamination rather than true infection. 2blood cultures will be repeated document clearance we will also check a CRP and a procalcitonin. 3May continue vancomycin watching his kidney function closely while waiting for ID of this pathogen however if finalized as coagulase-negative staph we will discontinue his vancomycin. We will follow on clinical condition and cultures to further adjust medication if needed Thank you for this consultation will follow this patient along with you Time with Patient: Greater than 30
[2022-03-23] MEDS: hydrALAZINE HCL 50 MG TAB PO SCH ×3 (08:22→21:11)
[2022-03-23] MEDS: amLODIPine 10 MG TAB PO SCH (08:22)
[2022-03-23] MEDS: ATORVASTATIN 40 MG TAB PO SCH (08:22)
[2022-03-23] MEDS: MAGNESIUM OXIDE 400 MG TAB PO SCH ×2 (08:22→20:42)
[2022-03-23] MEDS: RIVAROXABAN 20 MG TAB PO SCH (08:22)
[2022-03-23] MEDS: LOSARTAN 50 MG TAB PO SCH (08:22)
[2022-03-23] MEDS: TAMSULOSIN 0.4 MG CAP.ER.24H PO SCH (08:22)
[2022-03-23] MEDS: PANTOPRAZOLE 40 MG/10 ML VIAL IVP SCH ×2 (08:23→20:42)
[2022-03-23] MEDS: METOPROLOL SUCCINATE (ER) 100 MG TAB.ER.24H PO SCH (08:23)
[2022-03-23] MEDS: ALBUTEROL NEBULIZED 2.5 MG/3 ML INHALATION SCH ×4 (08:59→20:15)
[2022-03-23] MEDS: BUDESONIDE 0.5 MG/2 ML NEBU INHALATION SCH ×2 (08:59→20:15)
[2022-03-23] MEDS ORDERED: Potassium Replacement Protocol 1 EACH MISC MISCELLANE PRN (10:16)
[2022-03-23] MEDS: POTASSIUM CHLORIDE ER 20 MEQ TAB.ER PO SCH ×3 (12:15→20:42)
[2022-03-23] MEDS: THIAMINE 100 MG TAB PO SCH (12:15)
[2022-03-23 17:23] LABS: Basophils % (A) 0 %; Eosinophils # (A) 0.1 k/uL (0-0.7); Eosinophils % (A) 2 %; HCT 39.3 % (39.0-53.0); HGB 12.9 gm/dL (13.0-17.5); Lymphocytes % (A) 26 %; MCH 33.3 pg (25.0-35.0); MCHC 32.8 g/dL (31.0-37.0); MCV 101.6 fL (80.0-100.0); Macrocytosis Slight; Mean Platelet Volume 8.9; Monocytes # (A) 0.2 k/uL (0-1.0); Monocytes % (A) 5 %; Neutrophils # (A) 2.6 k/uL (1.3-7.7); Neutrophils % (A) 66 %; RBC 3.86 m/uL (4.30-5.90); RDW 14.4 % (11.5-15.5)
[2022-03-23 17:24] LABS: Platelet Count 68 k/uL (150-450)
[2022-03-23 17:52] LABS: ALT 90 U/L (4-49); AST 159 U/L (17-59); African American GFR (CKD) 44 (>60 ml/min/1.73 sqM); Albumin 3.8 g/dL (3.5-5.0); Albumin/Globulin Ratio 1.2; Alkaline Phosphatase 131 U/L (38-126); Anion Gap 8 mmol/L; Blood Urea Nitrogen 18 mg/dL (9-20); Calcium 8.3 mg/dL (8.4-10.2); Carbon Dioxide 25 mmol/L (22-30); Chloride 110 mmol/L (98-107); Globulin 3.3 g/dL; Glucose 214 mg/dL (74-99); Non-African American GFR(CKD) 38 (>60 ml/min/1.73 sqM); Sodium 143 mmol/L (137-145); Total Bilirubin 0.9 mg/dL (0.2-1.3); Total Protein 7.1 g/dL (6.3-8.2)
[2022-03-23 18:19] LABS: Potassium 3.6 mmol/L (3.5-5.1)
[2022-03-23] MEDS: polyethylene glycoL 3350 17 GM POWD.PACK PO SCH (20:43)
[2022-03-24] MEDS: traZODone HCL 50 MG TAB PO PRN (00:40)
[2022-03-24] MEDS: SODIUM CHLORIDE 0.9% 1,000 ML IV SCH ×3 (05:25→21:55)
[2022-03-24] MEDS: ONDANSETRON 4 MG/2 ML VIAL IVP PRN ×2 (06:48→12:53)
[2022-03-24] MEDS: SUCRALFATE 1 GM TAB PO SCH ×3 (06:48→17:08)
[2022-03-24] MEDS: ALBUTEROL NEBULIZED 2.5 MG/3 ML INHALATION SCH ×4 (08:00→19:59)
[2022-03-24] MEDS: BUDESONIDE 0.5 MG/2 ML NEBU INHALATION SCH ×2 (08:01→19:59)
[2022-03-24] MEDS: polyethylene glycoL 3350 17 GM POWD.PACK PO SCH (09:11)
[2022-03-24] MEDS: hydrALAZINE HCL 50 MG TAB PO SCH ×3 (09:12→21:31)
[2022-03-24] MEDS: POTASSIUM CHLORIDE ER 20 MEQ TAB.ER PO SCH ×2 (09:12→21:31)
[2022-03-24] MEDS: METOPROLOL SUCCINATE (ER) 100 MG TAB.ER.24H PO SCH (09:12)
[2022-03-24] MEDS: LOSARTAN 50 MG TAB PO SCH (09:12)
[2022-03-24] MEDS: ATORVASTATIN 40 MG TAB PO SCH (09:12)
[2022-03-24] MEDS: MAGNESIUM OXIDE 400 MG TAB PO SCH ×2 (09:12→21:31)
[2022-03-24] MEDS: RIVAROXABAN 20 MG TAB PO SCH (09:12)
[2022-03-24] MEDS: amLODIPine 10 MG TAB PO SCH (09:12)
[2022-03-24] MEDS: PANTOPRAZOLE 40 MG/10 ML VIAL IVP SCH ×2 (09:12→21:32)
[2022-03-24] MEDS: TAMSULOSIN 0.4 MG CAP.ER.24H PO SCH (09:12)
--- NOTE | 2022-03-24 10:45 | PN ---
PROGRESS NOTE CHIEF COMPLAINT: Chest pain and shortness of breath with hypertension. HISTORY OF PRESENT ILLNESS: This gentleman is doing a little bit better. Blood pressure is improved. He is still having a little bit of chest pain, but he is not having a lot of shortness of breath. It is noticed that his liver function studies were elevated as well as his renal function studies. PHYSICAL EXAMINATION: CHEST: Clear. CARDIAC: Normal. ABDOMEN: Soft, nontender. IMPRESSION: 1. Hypertension. 2. Tachycardia. 3. Probable congestive heart failure. 4. Elevated liver function studies. 5. Elevated renal function studies. PLAN: 1. Continue with IV fluids and continue to monitor AST, ALT, and alkaline phosphatase as well as GFR. 2. Ultrasound of the abdomen. MMODL / IJN: [id number] /
[2022-03-24] MEDS: IOPAMIDOL CONTRAST (ORAL USE) VIAL PO PRN ×2 (11:52→12:50)
--- NOTE | 2022-03-24 12:48 | CDI ---
Documentation Clarification Form Date: 03/24/2022 12:34:46 PM From: Camille Olea CCS, CCDS Admit Date: 03/23/2022 08:45:00 AM Patient Name: Anders Aguilar Visit Number: [id number] Discharge Date: ATTENTION: The Clinical Documentation Specialists (CDI) and [facility] Coding Staff appreciate your assistance in clarifying documentation. Please respond to the clarification below the line at the bottom and electronically sign. The CDI & [facility] Coding staff will review the response and follow-up if needed. Please note: Queries are made part of the Legal Health Record. If you have any questions, please contact the author of this message via ITS. Dr. Doug Beck: Per the 03/23 Attending Physician Progress Note: Probably Congestive Heart Failure is documented without further specificity. Additional information regarding the Type & Acuity of CHF is requested. History/Risk Factors per the 03/21 H/P: Hypertension, Alcoholism, Frequent Admissions with chest pain. History per the 03/22 Infectious Disease Consult: Alcoholism and Alcohol withdrawal & DTs, possibly a Seizure in 2018, Chronic Alcoholic Cirrhosis with Portal Hypertension, History of Upper & Lower GI Bleeds, Esophageal Varices, PE x2 right lung, TIA, Diverticulosis, Chronic lower bilateral extremity ankle edema, Hx Sepsis secondary to disc disease, Chronic Neck & Back pain & Right Side Sciatica, Vit D Deficiency and Iron Deficiency Anemia, Anxiety, Depression. Clinical Indicators: Presented with SOB and tachycardia, complaining of URI, CXR suggested bilateral bronchial pneumonia, negative for COVID. Admit to rule out Pneumonitis, rule out CHF, rule out PE. 03/21 VS: T 97.8, P 126, R 20, BP 178/92, PO 96 RA, BMI: 33.1 03/21 BNP: 28 03/21 CXR: Cardiomegaly and mild pulmonary vascular congestion. Some of the pulmonary vascular congestion could represent low lung volume changes. Correlate with BNP for congestive heart failure. Echocardiogram Results (most recent: 10/14/2021): EF 55-60%, Mild LVH. Treatment 03/21: Admitted to Observation Status. Telemetry, Heart Healthy Diet, Blood Culture, Sputum Culture, O2, Pulse Oximetry Qshift. IV Azithromycin 250 mls @ 250 mls/hr x1, IV Rocephin 50 mls @ 100 mls/hr x1, Pneumonia protocol, INH Duoneb QID/prn, IV Trandate x1, INH Ventolin 2.5 mg QID, INH Pulmicort 0.5 mg BID. 03/22: Nitropaste 0.4 mg x1, po Apresoline 50 mg x1, po Norvasc 10 mg Daily, po Cozaar 100 mg Daily, po Toprol 100 mg Daily, po Xarelto Daily, IV Protonix 40 mg BID, IV Na Chl 1,000 mls @ 150 mls/hr q6H, IV Vancomycin 500 mls @ 167 mls/hr q24H, po Ativan 1 mg q4H/prn. 03/23: Inpatient Admission. po Flomax, po K, po K-Dur, po Miralax. In your professional opinion, can you please clarify the Acuity & Type of CHF if known? [ ] Acute Systolic Heart Failure [ ] Chronic Systolic Heart Failure [ ] Acute on Chronic Systolic Heart Failure [ ] Acute Diastolic Heart Failure [ ] Chronic Diastolic Heart Failure [ ] Acute on Chronic Diastolic Heart Failure [ ] Acute Systolic & Diastolic Heart Failure [ ] Chronic Systolic & Diastolic Heart Failure [ ] Acute on Chronic Heart Failure Systolic & Diastolic Heart Failure [ ] CHF is ruled out [ ] Other, please specify [ ] Unable to determine (Template Last Revised: June 2020) MTDD
[2022-03-24] MEDS: THIAMINE 100 MG TAB PO SCH (12:51)
--- NOTE | 2022-03-24 12:54 | CDI ---
Documentation Clarification Form Date: 03/24/2022 12:49:13 PM From: Camille Olea CCS, CCDS Admit Date: 03/23/2022 08:45:00 AM Patient Name: Anders Aguilar Visit Number: [id number] Discharge Date: ATTENTION: The Clinical Documentation Specialists (CDI) and [facility] Coding Staff appreciate your assistance in clarifying documentation. Please respond to the clarification below the line at the bottom and electronically sign. The CDI & [facility] Coding staff will review the response and follow-up if needed. Please note: Queries are made part of the Legal Health Record. If you have any questions, please contact the author of this message via ITS. Dr. Doug Beck: Pneumonia is documented in the 03/21 H/P and in the 03/22 Infectious Disease Consult without further specificity. Additional clarification regarding Pneumonia is requested. History/Risk Factors per the 03/21 H/P: Hypertension, Alcoholism, Frequent Admissions with chest pain. History per the 03/22 Infectious Disease Consult: Alcoholism and Alcohol withdrawal & DTs, possibly a Seizure in 2018, Chronic Alcoholic Cirrhosis with Portal Hypertension, History of Upper & Lower GI Bleeds, Esophageal Varices, PE x2 right lung, TIA, Diverticulosis, Chronic lower bilateral extremity ankle edema, Hx Sepsis secondary to disc disease, Chronic Neck & Back pain & Right Side Sciatica, Vit D Deficiency and Iron Deficiency Anemia, Anxiety, Depression. Clinical Indicators: Presented with SOB and tachycardia, complaining of URI, CXR suggested bilateral bronchial pneumonia, negative for COVID. Admit to rule out Pneumonitis, rule out CHF, rule out PE. 03/21 VS: T 97.8, P 126, R 20, BP 178/92, PO 96 RA, BMI: 33.1 03/21 BNP: 28 03/21 Blood Cultures x2: Negative. x1: Coagulase negative Staph. 03/21 CXR: Cardiomegaly and mild pulmonary vascular congestion. Some of the pulmonary vascular congestion could represent low lung volume changes. Correlate with BNP for congestive heart failure. Echocardiogram Results (most recent: 10/14/2021): EF 55-60%, Mild LVH. Treatment 03/21: Admitted to Observation Status. Telemetry, Heart Healthy Diet, Blood Culture, Sputum Culture, O2, Pulse Oximetry Qshift. IV Azithromycin 250 mls @ 250 mls/hr x1, IV Rocephin 50 mls @ 100 mls/hr x1, Pneumonia protocol, INH Duoneb QID/prn, IV Trandate x1, INH Ventolin 2.5 mg QID, INH Pulmicort 0.5 mg BID. 03/22: Nitropaste 0.4 mg x1, po Apresoline 50 mg x1, po Norvasc 10 mg Daily, po Cozaar 100 mg Daily, po Toprol 100 mg Daily, po Xarelto Daily, IV Protonix 40 mg BID, IV Na Chl 1,000 mls @ 150 mls/hr q6H, IV Vancomycin 500 mls @ 167 mls/hr q24H, po Ativan 1 mg q4H/prn. 03/23: Inpatient Admission. po Flomax, po K, po K-Dur, po Miralax. Please clarify the documented Pneumonia, if known: [ ] Aspiration Pneumonia, Due to food or vomitus [ ] Bacterial Pneumonia, specify causal organism (if known) [ ] Viral Pneumonia, specify casual organism (if known) [ ] Pneumonia is ruled out [ ] Other, please specify [ ] Unable to determine (Template Last Revised: July 2020) MTDD
--- NOTE | 2022-03-24 16:14 | CT ---
EXAMINATION TYPE: CT abdomen pelvis wo con CT DLP: 851 mGycm, Automated exposure control for dose reduction was used. DATE OF EXAM: 03/24/2022 3:22 PM COMPARISON: CT abdomen pelvis most recent from 09/23/2021 CLINICAL INDICATION:Male, 66 years old with history of abd. pain, elev. LFTs; Abdomen pain, Elevated LFTs. Oral contrast only. TECHNIQUE: Axial CT of the abdomen and pelvis. Sagittal and coronal reformats were created on a [employer] workstation. Contrast used: None Oral contrast used: with Oral Contrast FINDINGS: LOWER CHEST: Similar parenchymal changes to prior on 09/23/2021 likely chronic. ABDOMEN LIVER: Diffusely hypoattenuating withe nodular contour GALLBLADDER AND BILE DUCTS: Cholecystectomy. PANCREAS: Unremarkable. SPLEEN: Calcified granuloma. Within normal limits for size measuring up to 12.7 cm. Small splenule is present. Right ADRENAL GLANDS: Unremarkable. KIDNEYS AND URETERS: No evidence of hydronephrosis or renal calculus. The ureters are unremarkable. PELVIS BLADDER: Unremarkable REPRODUCTIVE: Unremarkable. ABDOMEN & PELVIS STOMACH AND BOWEL: No evidence of bowel obstruction. Small hiatal hernia. Colonic diverticulosis. Froy ices are felt to be present along the esophagus distally. PERITONEUM: No evidence of pneumoperitoneum or free fluid. VASCULATURE: No evidence of aortic aneurysm. Atherosclerosis of the arterial vasculature. Recanalizat ion of the paraumbilical vein. Upper abdominal varices. MUSCULOSKELETAL: No acute osseous abnormalities LYMPH NODES: No gross evidence for lymphadenopathy. SOFT TISSUE/ABDOMINAL WALL: Bilateral fat containing inguinal hernias. IMPRESSION: 1. No evidence for acute intra-abdominal process. 2. Hepatic cirrhosis with steatosis with signs of portal hypertension with paraesophageal varices an d recanalization of the periumbilical vein.
[2022-03-24] MEDS: ACETAMINOPHEN TAB 325 MG TAB PO PRN (21:31)
[2022-03-25] MEDS: IPRATROPIUM-ALBUTEROL 3 ML NEB INHALATION PRN (01:57)
[2022-03-25] MEDS: traZODone HCL 50 MG TAB PO PRN ×2 (02:37→21:21)
[2022-03-25] MEDS: SODIUM CHLORIDE 0.9% 1,000 ML IV SCH ×4 (02:43→21:29)
[2022-03-25] MEDS: SUCRALFATE 1 GM TAB PO SCH ×3 (07:03→18:13)
[2022-03-25] MEDS: ALBUTEROL NEBULIZED 2.5 MG/3 ML INHALATION SCH ×4 (07:10→19:56)
[2022-03-25] MEDS: BUDESONIDE 0.5 MG/2 ML NEBU INHALATION SCH ×2 (07:10→19:56)
[2022-03-25] MEDS: ONDANSETRON 4 MG/2 ML VIAL IVP PRN ×2 (07:37→15:48)
--- NOTE | 2022-03-25 10:13 | PN ---
PROGRESS NOTE CHIEF COMPLAINT: Chest pain. HISTORY OF PRESENT ILLNESS: This gentleman is doing a bit better. He still has slight chest pain. His numbers are improving. He denies any epigastric pain. PHYSICAL EXAMINATION: CHEST: Clear. CARDIAC: Normal. ABDOMEN: Soft and nontender. VITAL SIGNS: His blood pressure is coming down. IMPRESSION: 1. Hypertension. 2. Acute alcohol intoxication. 3. Chronic alcoholism. 4. Elevated liver function studies. PLAN: 1. CT of the abdomen. 2. Repeat laboratory studies. 3. Increase activity. MMODL / IJN: [id number] /
[2022-03-25] MEDS: amLODIPine 10 MG TAB PO SCH (10:48)
[2022-03-25] MEDS: LOSARTAN 50 MG TAB PO SCH (10:48)
[2022-03-25] MEDS: METOPROLOL SUCCINATE (ER) 100 MG TAB.ER.24H PO SCH (10:48)
[2022-03-25] MEDS: MAGNESIUM OXIDE 400 MG TAB PO SCH ×2 (10:48→21:17)
[2022-03-25] MEDS: ATORVASTATIN 40 MG TAB PO SCH (10:48)
[2022-03-25] MEDS: polyethylene glycoL 3350 17 GM POWD.PACK PO SCH (10:49)
[2022-03-25] MEDS: PANTOPRAZOLE 40 MG/10 ML VIAL IVP SCH ×2 (10:49→21:17)
[2022-03-25] MEDS: POTASSIUM CHLORIDE ER 20 MEQ TAB.ER PO SCH ×2 (10:49→21:17)
[2022-03-25] MEDS: hydrALAZINE HCL 50 MG TAB PO SCH ×3 (10:49→21:17)
[2022-03-25] MEDS: TAMSULOSIN 0.4 MG CAP.ER.24H PO SCH (10:49)
[2022-03-25] MEDS: RIVAROXABAN 20 MG TAB PO SCH (10:49)
[2022-03-25] MEDS: THIAMINE 100 MG TAB PO SCH (13:31)
--- NOTE | 2022-03-25 19:21 | CA ---
Transthoracic Echo Report Name: Anders Aguilar Age: 66 Gender: M : 1955 Exam Date: 03/24/2022 11:26 Exam Location: [facility] Ht (in): 65 Wt (lb): 199 Ordering Physician: Doug Beck MD Attending/Referring Phys: Kiran LANDEROS Electrical Lineman Malinda Chavarria RDCS Procedure CPT: Indications: Of abdomen: elev. LFTs Cardiac Hx: Technical Quality: Fair Contrast 1: Total Dose (mL): Contrast 2: Total Dose (mL): MEASUREMENTS (Male / Female) Normal Values 2D ECHO LV Diastolic Diameter PLAX 4.0 cm 4.2 - 5.9 / 3.9 - 5.3 cm LV Systolic Diameter PLAX 2.4 cm IVS Diastolic Thickness 1.4 cm 0.6 - 1.0 / 0.6 - 0.9 cm LVPW Diastolic Thickness 1.4 cm 0.6 - 1.0 / 0.6 - 0.9 cm LV Relative Wall Thickness 0.7 FINDINGS Left Ventricle Moderately increased left ventricular wall thickness. Normal left ventricular systolic function with no obvious regional wall motion abnormalities. Left ventricular ejection fraction is estimated at 55-60 %. Right Ventricle Right Atrium Left Atrium Mitral Valve Structurally normal mitral valve. Mild mitral regurgitation. Aortic Valve No aortic valve stenosis or regurgitation. Tricuspid Valve Mild tricuspid regurgitation. Pulmonic Valve Pericardium No pericardial effusion. Aorta CONCLUSIONS Normal left ventricular systolic function. Moderate concentric LVH Previewed by: Dr. Niraj Drew MD (Electronically Signed) Final Date: 25 March 2022 19:20
[2022-03-25] MEDS: ACETAMINOPHEN TAB 325 MG TAB PO PRN (21:21)
[2022-03-26] MEDS: SODIUM CHLORIDE 0.9% 1,000 ML IV SCH ×3 (04:44→16:21)
[2022-03-26] MEDS: SUCRALFATE 1 GM TAB PO SCH ×3 (06:35→18:57)
[2022-03-26] MEDS: ALBUTEROL NEBULIZED 2.5 MG/3 ML INHALATION SCH ×4 (07:11→19:08)
[2022-03-26] MEDS: BUDESONIDE 0.5 MG/2 ML NEBU INHALATION SCH ×2 (07:11→19:08)
[2022-03-26] MEDS: RIVAROXABAN 20 MG TAB PO SCH (07:56)
[2022-03-26] MEDS: LOSARTAN 50 MG TAB PO SCH (07:57)
[2022-03-26] MEDS: ACETAMINOPHEN TAB 325 MG TAB PO PRN ×2 (07:57→16:13)
[2022-03-26] MEDS: hydrALAZINE HCL 50 MG TAB PO SCH ×3 (07:58→20:56)
[2022-03-26] MEDS: TAMSULOSIN 0.4 MG CAP.ER.24H PO SCH (07:58)
[2022-03-26] MEDS: MAGNESIUM OXIDE 400 MG TAB PO SCH ×2 (07:58→20:56)
[2022-03-26] MEDS: METOPROLOL SUCCINATE (ER) 100 MG TAB.ER.24H PO SCH (07:58)
[2022-03-26] MEDS: POTASSIUM CHLORIDE ER 20 MEQ TAB.ER PO SCH ×2 (07:58→20:56)
[2022-03-26] MEDS: PANTOPRAZOLE 40 MG/10 ML VIAL IVP SCH ×2 (07:59→20:56)
[2022-03-26] MEDS: amLODIPine 10 MG TAB PO SCH (07:59)
[2022-03-26] MEDS: ATORVASTATIN 40 MG TAB PO SCH (07:59)
[2022-03-26] MEDS: ONDANSETRON 4 MG/2 ML VIAL IVP PRN ×3 (08:29→23:33)
--- NOTE | 2022-03-26 11:29 | XR ---
EXAMINATION TYPE: XR chest 2V DATE OF EXAM: 03/26/2022 COMPARISON: 03/21/2022 TECHNIQUE: PA and lateral views submitted. HISTORY: Cough FINDINGS: Heart is prominent in size and there is coarsened interstitium. Postsurgical change involving the lef t shoulder. No pneumothorax. No overt failure. Limited inspiration. Hyperinflation suggests COPD. Hyp ertrophic and degenerative changes spine. Stable appearing compression fracture upper thoracic spine. Coarsened interstitium. IMPRESSION: 1. Correlate for COPD and chronic interstitial pulmonary fibrosis. Superimposed interstitial pneumoni tis since difficult to exclude correlate clinically. Consider follow-up CT scan.
--- NOTE | 2022-03-26 12:02 | PN ---
PROGRESS NOTE CHIEF COMPLAINT: Alcoholism, hypertension, and elevated liver function studies. HISTORY OF PRESENT ILLNESS: This gentleman is doing fairly well. He states he is still coughing up a small amount of blood. He is not vomiting. PHYSICAL EXAMINATION: CHEST: Clear. CARDIAC: Normal. ABDOMEN: Soft, nontender. IMPRESSION: 1. Possible bronchial pneumonia. 2. Alcoholism. 3. History of hypertension. 4. Cirrhosis. 5. Possible portal hypertension. 6. Chronic cough with hemoptysis. PLAN: Continue further evaluation by repeating his chest x-ray and he may require bronchoscopy if he continues to cough up blood. MMODL / IJN: [id number] /
--- NOTE | 2022-03-26 12:14 | PN ---
PROGRESS NOTE DATE OF SERVICE: 03/25/2022 CHIEF COMPLAINT: Alcoholism, nausea and vomiting. HISTORY OF PRESENT ILLNESS: This gentleman is coughing in fair amount and he is bringing up small amounts of blood. He denies any chest pain, shortness of breath, fever, chills, etc. Liver functions are still elevated and ultrasound is unremarkable. PHYSICAL EXAMINATION: CHEST: Clear. CARDIAC: Normal. ABDOMEN: Soft and slightly protuberant. Bowel sounds are present. IMPRESSION: 1. Acute alcohol intoxication. 2. Uncontrolled hypertension. 3. Elevated liver function studies. 4. Cirrhosis. 5. Possible esophageal varices. PLAN: Consult Gastroenterology or Surgery for esophagoscopy. MMODL / IJN: [id number] /
[2022-03-26 12:20] LABS: Basophils % (A) 0 %; Eosinophils % (A) 0 %; HCT 38.2 % (39.0-53.0); HGB 12.9 gm/dL (13.0-17.5); Lymphocytes # (A) 0.6 k/uL (1.0-4.8); Lymphocytes % (A) 15 %; MCH 33.7 pg (25.0-35.0); MCHC 33.8 g/dL (31.0-37.0); MCV 99.8 fL (80.0-100.0); Macrocytosis Slight; Mean Platelet Volume 10.4; Monocytes # (A) 0.3 k/uL (0-1.0); Monocytes % (A) 7 %; Neutrophils # (A) 3.1 k/uL (1.3-7.7); Neutrophils % (A) 75 %; RBC 3.83 m/uL (4.30-5.90); WBC 4.2 k/uL (3.8-10.6)
[2022-03-26 12:21] LABS: Platelet Count 62 k/uL (150-450)
[2022-03-26] MEDS: THIAMINE 100 MG TAB PO SCH (12:49)
[2022-03-26] MEDS: polyethylene glycoL 3350 17 GM POWD.PACK PO SCH (12:50)
[2022-03-26 12:58] LABS: ALT 61 U/L (4-49); AST 110 U/L (17-59); African American GFR (CKD) 85 (>60 ml/min/1.73 sqM); Albumin 3.6 g/dL (3.5-5.0); Albumin/Globulin Ratio 1.1; Alkaline Phosphatase 111 U/L (38-126); Anion Gap 10 mmol/L; Blood Urea Nitrogen 12 mg/dL (9-20); Calcium 7.6 mg/dL (8.4-10.2); Carbon Dioxide 19 mmol/L (22-30); Chloride 113 mmol/L (98-107); Globulin 3.3 g/dL; Glucose 144 mg/dL (74-99); Non-African American GFR(CKD) 74 (>60 ml/min/1.73 sqM); Potassium 3.7 mmol/L (3.5-5.1); Sodium 142 mmol/L (137-145); Total Bilirubin 0.9 mg/dL (0.2-1.3); Total Protein 6.9 g/dL (6.3-8.2)
[2022-03-26] MEDS: IPRATROPIUM-ALBUTEROL 3 ML NEB INHALATION PRN (19:08)
[2022-03-26] MEDS: traZODone HCL 50 MG TAB PO PRN (20:56)
[2022-03-26] MEDS: LORATADINE-PSEUDOEPH 5-120 MG 1 EACH TAB.ER.12H PO SCH (20:56)
[2022-03-27] MEDS: ACETAMINOPHEN TAB 325 MG TAB PO PRN ×2 (03:33→17:33)
[2022-03-27] MEDS: SODIUM CHLORIDE 0.9% 1,000 ML IV SCH ×3 (03:35→14:22)
[2022-03-27] MEDS: ONDANSETRON 4 MG/2 ML VIAL IVP PRN (06:39)
[2022-03-27] MEDS: SUCRALFATE 1 GM TAB PO SCH ×3 (06:39→16:07)
[2022-03-27] MEDS: BUDESONIDE 0.5 MG/2 ML NEBU INHALATION SCH ×2 (07:44→19:10)
[2022-03-27] MEDS: ALBUTEROL NEBULIZED 2.5 MG/3 ML INHALATION SCH ×4 (07:44→19:10)
--- NOTE | 2022-03-27 08:30 | CDI ---
Documentation Clarification Form Date: 03/27/2022 08:14:46 AM From: Camille Olea CCS, CCDS Admit Date: 03/23/2022 08:45:00 AM Patient Name: Anders Aguilar Visit Number: [id number] Discharge Date: ATTENTION: The Clinical Documentation Specialists (CDI) and [facility] Coding Staff appreciate your assistance in clarifying documentation. Please respond to the clarification below the line at the bottom and electronically sign. The CDI & [facility] Coding staff will review the response and follow-up if needed. Please note: Queries are made part of the Legal Health Record. If you have any questions, please contact the author of this message via ITS. Dr. Doug Beck: Acute Alcohol Intoxication is documented in the 03/24 and 03/26 Attending Physician Progress Notes and may lack sufficient clinical evidence/support in the medical record. Additional clarification is requested. Per the 03/22 Infectious Disease Consult: Patient has a history of Alcoholism but states he has not drank in a week, prior to that he drank a couple of pints of whiskey a day. History/Risk Factors per the 03/21 H/P: Alcoholism, Hypertension. Per the Infectious Disease Consult History: Alcoholism, Alcohol withdrawal/DTs and possible seizure in 2018 from withdrawal, Chronic Alcoholic Cirrhosis with Portal Hypertension and previous upper & lower GI Bleeding, Esophageal Varices, PE right lung x1, TIA, Diverticulosis. Clinical Indicators: Presented 03/21 (no ED note) with SOB and Tachycardia, frequent admissions for chest pain, hypertension and alcoholism. Admit with SOB & Tachycardia, r/o Pneumonitis, r/o CHF, r/o PE, History of Alcoholism. 03/21 VS: T 97.8, P 126, R 20, BP 178/92, PO 96 RA 03/23 VS: T 98.2, P 95, R 18, BP 114/69, PO 97 2Lnc 03/21 LAB: Na 146, CO2 20, BUN 24, Creatinine 1.48, Glucose 106, Magnesium 1.4, AST 237, ALT 105, Alk Phos 162 No Blood Alcohol drawn. 03/23 LAB: K 2.0, Chl 108, BUN 21, Creatine 2.22, Glucose 121, Calcium 7.8, Procalcitonin 0.25. No Blood Alcohol drawn. Treatment 03/21: Telemetry, Blood Culture, O2 2Lnc, IV Azithromycin 250 mls @ 250 mls/hr x1, IV Rocephin 50 mls @ 100 mls/hr x1, INH Duoneb 3 mg QID/prn, IV Trandate 20 mg x1, INH Ventolin 2.5 mg QID, INH Pulmicort 0.5 mg BID 03/23: K Dur 20 20 meq q2H, IV Fluids, monitor AST/ALT, Alk Phosphatase & GFR, US Abdomen. Please clarify if Acute Alcoholism with Intoxication is a valid diagnosis? [ ] Yes, Acute Alcoholism with Intoxication is present as evidence by (additional clinical support), please specify: [ ] No, Acute Alcoholism with Intoxication is ruled out [ ] Other (please specify diagnosis) [ ] Unable to determine (Template Last Revised: July 2020) MTDD
--- NOTE | 2022-03-27 08:40 | CDI ---
Documentation Clarification Form Date: 03/27/2022 08:34:31 AM From: Camille Olea CCS, CCDS Admit Date: 03/23/2022 08:45:00 AM Patient Name: Anders Aguilar Visit Number: [id number] Discharge Date: ATTENTION: The Clinical Documentation Specialists (CDI) and [facility] Coding Staff appreciate your assistance in clarifying documentation. Please respond to the clarification below the line at the bottom and electronically sign. The CDI & [facility] Coding staff will review the response and follow-up if needed. Please note: Queries are made part of the Legal Health Record. If you have any questions, please contact the author of this message via ITS. Dr. Doug Beck: There is documentation of Renal Failure without the specific acuity documented. Additional clarification of the acuity of the condition is requested. History/Risk Factors per the 03/21 H/P: Alcoholism, Hypertension. Per the Infectious Disease Consult History: Alcoholism, Alcohol withdrawal/DTs and possible seizure in 2018 from withdrawal, Chronic Alcoholic Cirrhosis with Portal Hypertension and previous upper & lower GI Bleeding, Esophageal Varices, PE right lung x1, TIA, Diverticulosis. Clinical Indicators: Presented 03/21 (no ED note) with SOB and Tachycardia, frequent admissions for chest pain, hypertension and alcoholism. Admit with SOB & Tachycardia, r/o Pneumonitis, r/o CHF, r/o PE, History of Alcoholism. 03/21 VS: T 97.8, P 126, R 20, BP 178/92, PO 96 RA 03/23 VS: T 98.2, P 95, R 18, BP 114/69, PO 97 2Lnc 03/21 LAB: Na 146, CO2 20, BUN 24, Creatinine 1.48, Glucose 106, GFR 49, Magnesium 1.4, AST 237, ALT 105, Alk Phos 162 No Blood Alcohol drawn. 03/23 LAB: K 2.0, Chl 108, BUN 21, Creatine 2.22, Glucose 121, GFR 30, Calcium 7.8, Procalcitonin 0.25. No Blood Alcohol drawn. Treatment 03/21: Telemetry, Blood Culture, O2 2Lnc, IV Azithromycin 250 mls @ 250 mls/hr x1, IV Rocephin 50 mls @ 100 mls/hr x1, INH Duoneb 3 mg QID/prn, IV Trandate 20 mg x1, INH Ventolin 2.5 mg QID, INH Pulmicort 0.5 mg BID. 03/22: IV Na Chl 1,000 mls @ 150 mls/hr q6H, IV Vancomycin 500 mls @ 167 mls/hr q24H. 03/23: K Dur 20 20 meq q2H, IV Fluids, monitor AST/ALT, Alk Phosphatase & GFR, US Abdomen. Can you please clarify the acuity of the Renal Failure: [ ] Acute [ ] Chronic, if Chronic, please specify the Stage. [ ] Other, please specify [ ] Unable to determine (Template Last Revised: July 2020) MTDD
[2022-03-27] MEDS: amLODIPine 10 MG TAB PO SCH (08:48)
[2022-03-27] MEDS: hydrALAZINE HCL 50 MG TAB PO SCH ×2 (08:50→16:07)
[2022-03-27] MEDS: ATORVASTATIN 40 MG TAB PO SCH (08:50)
[2022-03-27] MEDS: LORATADINE-PSEUDOEPH 5-120 MG 1 EACH TAB.ER.12H PO SCH (08:51)
[2022-03-27] MEDS: LOSARTAN 50 MG TAB PO SCH (08:53)
[2022-03-27] MEDS: MAGNESIUM OXIDE 400 MG TAB PO SCH ×2 (08:55→20:28)
[2022-03-27] MEDS: METOPROLOL SUCCINATE (ER) 100 MG TAB.ER.24H PO SCH (08:56)
[2022-03-27] MEDS: TAMSULOSIN 0.4 MG CAP.ER.24H PO SCH (08:57)
--- NOTE | 2022-03-27 09:29 | P.PN ---
Subjective Progress Note Date: 03/23/22 Principal diagnosis: Bacteremia Patient is a 66-year-old male with multiple comorbidities present to the ER for evaluation of chest pain or shortness of breath patient did not have any fever and the patient did have a normal white count blood cultures came back positive for gram-positive cocci that prompted this infectious disease consultation. On today's evaluation that is 03/23/2022, the patient denies having any fever or any chills still complaining of some chest discomfort did have minimal cough but no sputum production no nausea no vomiting no abdominal pain no diarrhea Objective - Vital Signs Vital signs: Vital Signs Temp 98.2 F 03/23/22 15:41 Pulse 95 03/23/22 15:49 Resp 18 03/23/22 15:41 BP 114/69 03/23/22 15:41 Pulse Ox 97 03/23/22 15:41 FiO2 Intake & Output 03/22/22 03/23/22 03/23/22 18:59 06:59 18:59 Intake Total 478 Balance 478 Intake: Oral 478 Other: Voiding Method Toilet Toilet Toilet # Voids 3 - Exam GENERAL DESCRIPTION: An elderly male lying in bed in no distress RESPIRATORY SYSTEM: Unlabored breathing , decreased breath sounds at bases HEART: S1 S2 regular rate and rhythm , ABDOMEN: Soft , no tenderness EXTREMITIES: No edema feet - Labs CBC & Chem 7: 03/26/22 11:38 03/26/22 11:38 Labs: Abnormal Lab Results - Last 24 Hours (Table) 03/23/22 03/23/22 03/23/22 Range/Units 06:08 06:08 06:08 ESR 46 H (0-20) mm/Hr Potassium 2.9 L (3.5-5.1) mmol/L Chloride 108 H (98-107) mmol/L BUN 21 H (9-20) mg/dL Creatinine 2.22 H (0.66-1.25) mg/dL Glucose 121 H (74-99) mg/dL Calcium 7.8 L (8.4-10.2) mg/dL Procalcitonin 0.25 H (0.02-0.09) ng/mL Microbiology - Last 24 Hours (Table) 03/21/22 13:40 Blood Culture Gram Stain - Final Blood Blood Culture - Final Coagulase Negative Staph 03/21/22 13:55 Blood Culture - Preliminary Blood No Growth after 24 hours 03/21/22 13:40 Blood Culture - Final Blood Assessment and Plan (1) Positive blood cultures Current Visit: Yes Status: Acute Code(s): R78.81 - BACTEREMIA SNOMED Code(s): 006012667 Plan: 1patient with gram-positive bacteremia in this patient predominantly with the respiratory symptoms however chest x-ray was negative for any consolidation patient not running any fever White count is normal concern for possible skin contamination rather than true infection. 2blood cultures has been repeated which are currently pending 3the patient blood culture has been finalized as coagulase-negative staph more likely skin contamination and we will discontinue his vancomycin. Time with Patient: Less than 30
--- NOTE | 2022-03-27 09:30 | P.PN ---
Subjective Progress Note Date: 03/24/22 Principal diagnosis: Bacteremia Patient is a 66-year-old male with multiple comorbidities present to the ER for evaluation of chest pain or shortness of breath patient did not have any fever and the patient did have a normal white count blood cultures came back positive for gram-positive cocci that prompted this infectious disease consultation. On today's evaluation that is 03/24/2022, the patient remains to be afebrile, breathing comfortably. Denies having any worsening chest pain occasional cough some nausea but no vomiting no abdominal pain or diarrhea Objective - Vital Signs Vital signs: Vital Signs Temp 97.7 F 03/24/22 08:00 Pulse 88 03/24/22 11:28 Resp 17 03/24/22 08:00 BP 150/77 03/24/22 08:00 Pulse Ox 96 03/24/22 13:06 FiO2 Intake & Output 03/23/22 03/24/22 03/24/22 18:59 06:59 18:59 Intake Total 240 200 Balance 240 200 Intake: Oral 240 200 Other: Voiding Method Toilet Urinal # Voids 2 1 - Exam GENERAL DESCRIPTION: An elderly male lying in bed in no distress RESPIRATORY SYSTEM: Unlabored breathing , decreased breath sounds at bases HEART: S1 S2 regular rate and rhythm , ABDOMEN: Soft , no tenderness EXTREMITIES: No edema feet - Labs CBC & Chem 7: 03/26/22 11:38 03/26/22 11:38 Labs: Abnormal Lab Results - Last 24 Hours (Table) 03/23/22 03/23/22 Range/Units 17:02 17:02 RBC 3.86 L (4.30-5.90) m/uL Hgb 12.9 L (13.0-17.5) gm/dL MCV 101.6 H (80.0-100.0) fL Plt Count 68 L (150-450) k/uL Chloride 110 H (98-107) mmol/L Creatinine 1.82 H (0.66-1.25) mg/dL Glucose 214 H (74-99) mg/dL Calcium 8.3 L (8.4-10.2) mg/dL AST 159 H (17-59) U/L ALT 90 H (4-49) U/L Alkaline Phosphatase 131 H (38-126) U/L Microbiology - Last 24 Hours (Table) 03/23/22 06:08 Blood Culture - Preliminary Blood No Growth after 24 hours 03/21/22 13:55 Blood Culture - Preliminary Blood No Growth after 48 hours 03/21/22 13:40 Blood Culture Gram Stain - Final Blood Blood Culture - Final Coagulase Negative Staph Assessment and Plan (1) Positive blood cultures Current Visit: Yes Status: Acute Code(s): R78.81 - BACTEREMIA SNOMED Code(s): 752428556 Plan: 1patient with gram-positive bacteremia in this patient predominantly with the respiratory symptoms however chest x-ray was negative for any consolidation patient not running any fever White count is normal concern for possible skin contamination rather than true infection. 2blood cultures has been repeated which are so far negative 3the patient blood culture has been finalized as coagulase-negative staph more likely skin contamination , vancomycin was discontinued yesterday and will be monitored closely off antibiotic Time with Patient: Less than 30
--- NOTE | 2022-03-27 09:33 | P.PN ---
Subjective Progress Note Date: 03/25/22 Principal diagnosis: Bacteremia Patient is a 66-year-old male with multiple comorbidities present to the ER for evaluation of chest pain or shortness of breath patient did not have any fever and the patient did have a normal white count blood cultures came back positive for gram-positive cocci that prompted this infectious disease consultation. On today's evaluation that is 03/25/2022, the patient continues to be afebrile, the patient is breathing comfortably the patient denies having any worsening chest pain occasional cough some nausea and apparently did have some blood- streaked hematemesis yesterday for the patient did have a CT of abdominal pelvis suspicious for cirrhosis and varices Objective - Vital Signs Vital signs: Vital Signs Temp 97.6 F 03/25/22 10:47 Pulse 76 03/25/22 11:07 Resp 18 03/25/22 10:47 BP 146/86 03/25/22 10:47 Pulse Ox 98 03/25/22 10:47 FiO2 Intake & Output 03/24/22 03/25/22 03/25/22 18:59 06:59 18:59 Intake Total 200 120 Balance 200 120 Intake: Oral 200 120 Other: Voiding Method Urinal Urinal # Voids 1 1 - Exam GENERAL DESCRIPTION: An elderly male lying in bed in no distress RESPIRATORY SYSTEM: Unlabored breathing , decreased breath sounds at bases HEART: S1 S2 regular rate and rhythm , ABDOMEN: Soft , no tenderness EXTREMITIES: No edema feet - Labs CBC & Chem 7: 03/26/22 11:38 03/26/22 11:38 Labs: Microbiology - Last 24 Hours (Table) 03/23/22 06:08 Blood Culture - Preliminary Blood No Growth after 48 hours 03/21/22 13:55 Blood Culture - Preliminary Blood No Growth after 72 hours Assessment and Plan (1) Positive blood cultures Current Visit: Yes Status: Acute Code(s): R78.81 - BACTEREMIA SNOMED Code(s): 168052516 Plan: 1patient with gram-positive bacteremia in this patient predominantly with the respiratory symptoms however chest x-ray was negative for any consolidation patient not running any fever White count is normal concern for possible skin contamination rather than true infection. 2blood cultures has been repeated which are so far negative 3the patient blood culture has been finalized as coagulase-negative staph more likely skin contamination , vancomycin was discontinued yesterday and will be monitored closely off antibiotic 4-patient with hematemesis with abdominal CT will benefit from a GI evaluation Time with Patient: Less than 30
--- NOTE | 2022-03-27 09:34 | P.PN ---
Subjective Progress Note Date: 03/26/22 Principal diagnosis: Bacteremia Patient is a 66-year-old male with multiple comorbidities present to the ER for evaluation of chest pain or shortness of breath patient did not have any fever and the patient did have a normal white count blood cultures came back positive for gram-positive cocci that prompted this infectious disease consultation. On today's evaluation that is 03/26/2022, the patient denies any fever or any chills, the patient is breathing comfortably denies chest pain he did have occasional cough but sputum or hemoptysis denies any further nausea vomiting no abdominal pain or diarrhea Objective - Vital Signs Vital signs: Vital Signs Temp 98.3 F 03/26/22 08:05 Pulse 118 H 03/26/22 08:05 Resp 18 03/26/22 08:05 BP 157/82 03/26/22 08:05 Pulse Ox 95 03/26/22 08:05 FiO2 Intake & Output 03/25/22 03/26/22 03/26/22 18:59 06:59 18:59 Intake Total 240 Balance 240 Intake: Oral 240 Other: Voiding Method Urinal # Voids 1 1 - Exam GENERAL DESCRIPTION: An elderly male lying in bed in no distress RESPIRATORY SYSTEM: Unlabored breathing , decreased breath sounds at bases HEART: S1 S2 regular rate and rhythm , ABDOMEN: Soft , no tenderness EXTREMITIES: No edema feet - Labs CBC & Chem 7: 03/26/22 11:38 03/26/22 11:38 Labs: Microbiology - Last 24 Hours (Table) 03/23/22 06:08 Blood Culture - Preliminary Blood No Growth after 72 hours 03/21/22 13:55 Blood Culture - Preliminary Blood No Growth after 96 hours Assessment and Plan (1) Positive blood cultures Current Visit: Yes Status: Acute Code(s): R78.81 - BACTEREMIA SNOMED Code(s): 064279328 Plan: 1patient with gram-positive bacteremia in this patient predominantly with the respiratory symptoms however chest x-ray was negative for any consolidation patient not running any fever White count is normal concern for possible skin contamination rather than true infection. 2blood cultures has been repeated which are so far negative 3the patient blood culture has been finalized as coagulase-negative staph more likely skin contamination , vancomycin was discontinued yesterday and will be monitored closely off antibiotic 4-patient did have a cough chest x-ray with some interstitial infiltrate concerning for possible pneumonia patient is clinically not behaving as the morning we will go ahead and check a CRP pro calcitonin and also request for a sputum Time with Patient: Less than 30
[2022-03-27] MEDS: polyethylene glycoL 3350 17 GM POWD.PACK PO SCH (09:35)
[2022-03-27] MEDS: RIVAROXABAN 20 MG TAB PO SCH (09:58)
[2022-03-27] MEDS: PANTOPRAZOLE 40 MG/10 ML VIAL IVP SCH ×2 (09:58→20:27)
[2022-03-27] MEDS: POTASSIUM CHLORIDE ER 20 MEQ TAB.ER PO SCH ×2 (09:58→20:28)
[2022-03-27 10:23] LABS: Basophils % (A) 0 %; Eosinophils % (A) 0 %; HCT 39.7 % (39.0-53.0); Lymphocytes # (A) 0.7 k/uL (1.0-4.8); Lymphocytes % (A) 11 %; MCHC 32.8 g/dL (31.0-37.0); MCV 100.6 fL (80.0-100.0); Macrocytosis Slight; Mean Platelet Volume 11.6; Monocytes # (A) 0.4 k/uL (0-1.0); Monocytes % (A) 6 %; Neutrophils # (A) 4.6 k/uL (1.3-7.7); Neutrophils % (A) 80 %; RBC 3.94 m/uL (4.30-5.90); RDW 15.3 % (11.5-15.5); WBC 5.8 k/uL (3.8-10.6)
[2022-03-27 10:26] LABS: Platelet Count 60 k/uL (150-450)
[2022-03-27] MEDS ORDERED: FUROSEMIDE 10 MG/ML 4 ML VIAL IV STA (11:14)
[2022-03-27] MEDS: LORazepam 1 MG/0.5 ML VIAL IV PRN (11:28)
[2022-03-27 12:07] LABS: Basophils % (A) 0 %; Eosinophils % (A) 0 %; HCT 40.4 % (39.0-53.0); HGB 13.2 gm/dL (13.0-17.5); Lymphocytes # (A) 0.8 k/uL (1.0-4.8); Lymphocytes % (A) 10 %; MCH 32.8 pg (25.0-35.0); MCHC 32.6 g/dL (31.0-37.0); MCV 100.4 fL (80.0-100.0); Macrocytosis Slight; Mean Platelet Volume 10.4; Monocytes # (A) 0.6 k/uL (0-1.0); Monocytes % (A) 7 %; Neutrophils # (A) 6.5 k/uL (1.3-7.7); Neutrophils % (A) 80 %; RBC 4.03 m/uL (4.30-5.90); RDW 15.2 % (11.5-15.5); WBC 8.1 k/uL (3.8-10.6)
[2022-03-27 12:13] LABS: Platelet Count 73 k/uL (150-450)
--- NOTE | 2022-03-27 12:14 | XR ---
EXAMINATION TYPE: XR chest 1V portable DATE OF EXAM: 03/27/2022 COMPARISON: 03/26/2022 INDICATION: Dyspnea TECHNIQUE: Frontal and lateral views of the chest are obtained. FINDINGS: The heart size is normal. The pulmonary vasculature is normal. There are patchy bilateral lung infiltrates greater in the left lower lobe. Findings are worsening ov er the interval. Correlate for bilateral pneumonia. Follow-up is recommended. IMPRESSION: 1. Atrophy bilateral lung infiltrates greater at the left lung base are present through the periphera l right lower lung field. Correlate for pneumonia. Follow-up is recommended.
[2022-03-27 12:16] LABS: ALT 52 U/L (4-49); AST 87 U/L (17-59); African American GFR (CKD) >90 (>60 ml/min/1.73 sqM); Albumin 3.4 g/dL (3.5-5.0); Alkaline Phosphatase 112 U/L (38-126); Anion Gap 10 mmol/L; Blood Urea Nitrogen 12 mg/dL (9-20); Calcium 7.4 mg/dL (8.4-10.2); Carbon Dioxide 18 mmol/L (22-30); Chloride 110 mmol/L (98-107); Globulin 3.5 g/dL; Glucose 157 mg/dL (74-99); Non-African American GFR(CKD) 86 (>60 ml/min/1.73 sqM); Potassium 3.7 mmol/L (3.5-5.1); Sodium 138 mmol/L (137-145); Total Bilirubin 1.4 mg/dL (0.2-1.3); Total Protein 6.9 g/dL (6.3-8.2)
[2022-03-27 12:19] LABS: Glucose,Whole Blood 161 mg/dL (70-110)
--- NOTE | 2022-03-27 12:19 | P.CNPUL ---
History of Present Illness Consult date: 03/27/22 Requesting physician: Doug Beck Reason for consult: dyspnea, hypoxemia Chief complaint: Shortness of breath, chest pain History of present illness: This is a pleasant 66-year-old male patient with a known history of alcoholism, atrial fibrillation, anticoagulated with Xarelto, nonsmoker, chronic liver disease, pancytopenia, previous alcohol withdrawal seizures, portal hypertension, esophageal variceal bleeding, diabetes mellitus, hyperlipidemia, hypertension. He was admitted here back on 03/21/2022 for shortness of breath and cough and congestion. If he was admitted to the regular medical floor and being followed by medicine and infectious disease. He had one blood culture positive for coag-negative staph. Today the patient developed significant shortness of breath, hypoxemia and went from 2 L up to 6 L high flow nasal cannula with O2 saturation still in the 80s. We're consulted for the same. He is seen in his room urgently. He is quite dyspneic. His O2 saturations 82% on 6 L nasal cannula. He is given Lasix 40 mg IVP 1. Ativan 1 mg IV. Chest x- ray reveals significant bilateral multifocal infiltrates/edema. He was placed on BiPAP 16/6 and 50% FiO2 and to be admitted to the intensive care unit. White count 5.8. Hemoglobin 13.0. D-dimer 0.44. The patient is anticoagulated with Xarelto. He's been on DuoNeb inhalations and Pulmicort inhalations. Review of Systems REVIEW OF SYSTEMS: CONSTITUTIONAL: Denies any recent significant weight loss or weight gain. EYES: Denies change in vision. EARS, NOSE, MOUTH, THROAT: Denies headaches, denies sore throat. CARDIOVASCULAR: Positive for chest pain, palpitations no syncopal episodes. RESPIRATORY: Positive for shortness of breath, cough, congestion and hemoptysis. GASTROINTESTINAL: Denies change in appetite, denies abdominal pain GENITOURINARY: Denies hematuria, denies infections. MUSKULOSKELETAL: Denies pain, denies swelling. INTEGUMENTARY: Denies rash, denies eczema. NEUROLOGICAL: Denies recent memory loss, no recent seizure activity. PSYCHIATRIC: Denies anxiety, denies depression. HEMATOLOGIC/LYMPHATIC: Denies anemia, denies enlarged lymph nodes. Past Medical History Past Medical History: Atrial Fibrillation, Chest Pain / Angina, COPD, CVA/TIA, Diabetes Mellitus, GERD/Reflux, GI Bleed, Hearing Disorder / Deafness, Hyper lipidemia, Hypertension, Liver Disease, Pneumonia, Prostate Disorder, Pulmonary Embolus (PE) Additional Past Medical History / Comment(s): Pt recently hospitalized at [facility] with pneumonia. Other hx: GI bleed/ esophageal varicies banded. Other hx: Alcoholism, alcohol withdrawal DTs and possibly a seizure in 2018 r/t withdrawal, chronic alcoholic cirrhosis with portal hypertension and previous history of upper and lower GI bleeding, esophageal varices, previous history of childhood seizure which he outgrew not taking any antiepileptic medication, pulmonary embolism x 2 R lung, TIA, diverticulosis, chronic lower bilateral extremity ankle edema if he walks a lot, previous history of septicemia, cervical disc disease, chronic neck pain, chronic back pain with r sided sciatica, degenerative arthritis involving the lower back, scoliosis, tinnitus, vitamin D deficiency, iron anemia, chronic thrombocytopenia, denies MRSA, C-DIFF History of Any Multi-Drug Resistant Organisms: MRSA Date of last positivie culture/infection: 03/17/18 MDRO Source:: stomach Past Surgical History: Appendectomy, Cholecystectomy Additional Past Surgical History / Comment(s): EGDs/esophageal varicies bandings, colonoscopies. Past Anesthesia/Blood Transfusion Reactions: No Reported Reaction Additional Past Anesthesia/Blood Transfusion Reaction / Comment(s): after appendix removed sob Past Psychological History: Anxiety, Depression Additional Psychological History / Comment(s): Pt resides in a 3/4 house. He uses a cane prn. He gets to [facility] by senior bus or cab or ambulance. Smoking Status: Never smoker Past Alcohol Use History: Heavy Additional Past Alcohol Use History / Comment(s): Pt has hx of alcoholism. He states he is HAS NOT DRANK IN A WEEK. PRIOR TO THAT HE DRANK A COUPLE PINTS OF WHISKEY A DAY. Past Drug Use History: None Reported - Past Family History Mother Family Medical History: COPD, CVA/TIA, Dementia Additional Family Medical History / Comment(s): from a stroke Father Family Medical History: Pneumonia Additional Family Medical History / Comment(s): Father of pneumonia when he was close to 80 yrs old. Medications and Allergies Home Medications Medication Instructions Recorded Confirmed Type Ferrous Sulfate [Iron (65 MG 325 mg PO DAILY #30 tab 06/07/19 03/21/22 Rx Elemental)] Folic Acid 1 mg PO DAILY 01/07/20 03/21/22 History traZODone HCL 50 mg PO HS PRN 01/07/20 03/21/22 History Ergocalciferol [Vitamin D2 (1250 1,250 mcg PO Q30D 10/30/20 03/21/22 History Mcg = 19431 Iu)] Naproxen 500 mg PO BID PRN 10/30/20 03/21/22 History Omeprazole 20 mg PO DAILY 03/02/21 03/21/22 History Magnesium Oxide [Mag-Ox] 400 mg PO BID #60 tab 04/03/21 03/21/22 Rx Thiamine [Vitamin B-1] 100 mg PO W/LUNCH 07/21/21 03/21/22 History Atorvastatin [Lipitor] 40 mg PO DAILY 30 Days #30 tab 07/25/21 03/21/22 Rx Cyclobenzaprine [Flexeril] 10 mg PO TID PRN #30 tab 07/25/21 03/21/22 Rx Sucralfate [Carafate] 1 gm PO AC-TID #90 tablet 07/25/21 03/21/22 Rx Metoprolol Succinate (ER) [Toprol 100 mg PO DAILY #30 09/26/21 03/21/22 Rx XL] Ipratropium-Albuterol Nebulize 3 ml INHALATION RT-QID PRN 01/16/22 03/21/22 History [Duoneb 0.5 mg-3 mg/3 ml Soln] Losartan Potassium 100 mg PO DAILY 01/16/22 03/21/22 History Potassium Chloride ER [K-Dur 20] 20 meq PO BID 01/16/22 03/21/22 History Tamsulosin HCl [Flomax] 0.4 mg PO DAILY 01/16/22 03/21/22 History cloNIDine HCL [Catapres] 0.3 mg PO TID PRN 01/16/22 03/21/22 History Albuterol Inhaler [Ventolin Hfa 2 puff INHALATION RT-QID 5 Days #8 01/21/22 03/21/22 Rx Inhaler] gm Budesonide [Pulmicort] 0.5 mg INHALATION BID 5 Days #60 ml 01/21/22 03/21/22 Rx Rivaroxaban [Xarelto] 20 mg PO DAILY 30 Days #30 tab 01/21/22 03/21/22 Rx amLODIPine [Norvasc] 10 mg PO DAILY #30 tab 01/21/22 03/21/22 Rx Allergies Allergy/AdvReac Type Severity Reaction Status Date / Time adhesive tape Allergy Rash/Hives Verified 03/21/22 15:27 latex Allergy Rash/Hives Verified 03/21/22 15:27 lisinopril Allergy Eyes Verified 03/21/22 15:27 burn/Itching/Weakness egg AdvReac Nausea & Verified 03/21/22 15:27 Vomiting tomato AdvReac Nausea & Verified 03/21/22 15:27 Vomiting & Diarrhea Physical Exam Vitals: Vital Signs Temp Pulse Pulse Pulse Resp BP Pulse Ox 03/27/22 11:44 03/27/22 11:17 116 H 03/27/22 11:02 110 H 03/27/22 10:51 112 H 112 H 36 H 136/72 84 L 03/27/22 09:21 103 H 18 91 L 03/27/22 09:12 97.7 F 109 H 18 88 L 03/27/22 08:45 100 140/90 03/27/22 08:02 102 H 03/27/22 07:49 106 H 92 L 03/27/22 06:15 98.2 F 109 H 19 125/74 93 L 03/27/22 02:11 97.6 F 112 H 18 158/89 93 L 03/26/22 23:15 104 H 113/63 93 L 03/26/22 19:23 100 03/26/22 19:10 100 03/26/22 18:59 98.2 F 100 18 106/56 94 L 03/26/22 15:38 72 03/26/22 15:24 70 03/26/22 13:39 97.0 F L 97 18 111/64 95 03/26/22 13:30 98 F 98 18 119/47 95 03/26/22 12:01 78 FiO2 03/27/22 11:44 50 03/27/22 11:17 03/27/22 11:02 03/27/22 10:51 03/27/22 09:21 03/27/22 09:12 03/27/22 08:45 03/27/22 08:02 03/27/22 07:49 03/27/22 06:15 03/27/22 02:11 03/26/22 23:15 03/26/22 19:23 03/26/22 19:10 03/26/22 18:59 03/26/22 15:38 03/26/22 15:24 03/26/22 13:39 03/26/22 13:30 03/26/22 12:01 Intake and Output 03/26/22 03/27/22 03/27/22 22:59 06:59 14:59 Intake Total 240 Balance 240 Intake: Oral 240 Other: Voiding Method Toilet Urinal # Voids 1 2 GENERAL EXAM: Alert, 66-year-old male on 6 L nasal cannula, dyspneic with conv ersation, dyspneic with minimal exertion. HEAD: Normocephalic. EYES: Normal reaction of pupils, equal size. NOSE: Clear with pink turbinates. THROAT: No erythema or exudates. NECK: No masses, no JVD. CHEST: No chest wall deformity. LUNGS: Equal air entry with bilateral scattered rhonchi, crackles. CVS: S1 and S2 normal with no audible murmur, regular rhythm. ABDOMEN: No hepatosplenomegaly, normal bowel sounds, no guarding or rigidity. SPINE: No scoliosis or deformity SKIN: No rashes CENTRAL NERVOUS SYSTEM: No focal deficits, tone is normal in all 4 extremities. EXTREMITIES: There is no peripheral edema. No clubbing, no cyanosis. Peripheral pulses are intact. Results - Laboratory Findings CBC and BMP: 03/27/22 10:05 03/26/22 11:38 PT/INR, D-dimer PT 12.8 sec (9.0-12.0) H 03/21/22 08:30 INR 1.2 (<1.2) H 03/21/22 08:30 D-Dimer 0.44 mg/L FEU (<0.60) 03/27/22 10:45 Abnormal lab findings: Abnormal Labs 03/21/22 03/21/22 03/21/22 08:30 08:30 08:30 RBC 4.26 L Hgb Hct MCV Plt Count 89 L Lymphocytes # ESR PT 12.8 H INR 1.2 H Sodium 146 H Potassium Chloride Carbon Dioxide 20 L BUN 24 H Creatinine 1.48 H Glucose 106 H Calcium Magnesium 1.3 L AST 237 H ALT 105 H Alkaline Phosphatase 162 H Procalcitonin 03/23/22 03/23/22 03/23/22 06:08 06:08 06:08 RBC Hgb Hct MCV Plt Count Lymphocytes # ESR 46 H PT INR Sodium Potassium 2.9 L Chloride 108 H Carbon Dioxide BUN 21 H Creatinine 2.22 H Glucose 121 H Calcium 7.8 L Magnesium AST ALT Alkaline Phosphatase Procalcitonin 0.25 H 03/23/22 03/23/22 03/26/22 17:02 17:02 11:38 RBC 3.86 L 3.83 L Hgb 12.9 L 12.9 L Hct 38.2 L MCV 101.6 H Plt Count 68 L 62 L Lymphocytes # 0.6 L ESR PT INR Sodium Potassium Chloride 110 H Carbon Dioxide BUN Creatinine 1.82 H Glucose 214 H Calcium 8.3 L Magnesium AST 159 H ALT 90 H Alkaline Phosphatase 131 H Procalcitonin 03/26/22 03/27/22 11:38 10:05 RBC 3.94 L Hgb Hct MCV 100.6 H Plt Count 60 L Lymphocytes # 0.7 L ESR PT INR Sodium Potassium Chloride 113 H Carbon Dioxide 19 L BUN Creatinine Glucose 144 H Calcium 7.6 L Magnesium AST 110 H ALT 61 H Alkaline Phosphatase Procalcitonin - Diagnostic Findings Chest x-ray: image reviewed Assessment and Plan Assessment: Acute hypoxemic respiratory failure secondary to suspected aspiration versus flash pulmonary edema Chest pain, acute coronary syndrome ruled out Suspect diastolic congestive heart failure, ejection fraction 35-60% Alcoholism, states last drink was one month ago Transaminitis secondary to above Chronic alcoholic liver disease with complications related to alcoholism including pancytopenia, esophageal variceal bleed Chronic atrial fibrillation with a left ventricular dimension with Xarelto Previous history of pulmonary embolism, maintained on Xarelto Acute kidney injury, likely secondary to vascular volume depletion, improved Chronic anxiety/depression Hypertension Previous history of alcoholic seizures Previous history of TIA Nonsmoker Plan: The patient was seen and evaluated Chest x-ray, echocardiogram, labs and medications reviewed Give Lasix 40 mg IVP 1 Initiate BiPAP / and 50% FiO2 Insert Boudreaux catheter Cancel CT angiogram, d-dimer normal, on Xarelto Intolerant to lay flat at this time Add Zosyn for possible aspiration Repeat pro calcitonin Obtain a sputum culture Transfer the patient to the intensive care unit We will continue to follow and make further recommendations based on his clinical status
[2022-03-27] MEDS: THIAMINE 100 MG TAB PO SCH (13:56)
[2022-03-27] MEDS: PIPERACILLIN-TAZOBACTAM 3.375 GM in SODIUM CHLORIDE 0.9% 100 ML IVPB SCH ×2 (14:22→20:46)
[2022-03-27 14:48] LABS: African American GFR (CKD) 81.2 (60.0-200.0); Albumin 3.5 g/dL (3.8-4.9); Albumin/Globulin Ratio 1.13 (1.60-3.17); Anion Gap 13.4 mmol/L (10.00-18.00); BUN/Creat Ratio 9.82 Ratio (12.00-20.00); Blood Urea Nitrogen 10.8 mg/dL (9.0-27.0); C Reactive Protein 4.6 mg/dL (0.00-0.80); Calcium 7.8 mg/dL (8.7-10.3); Carbon Dioxide 18.6 mmol/L (20.0-27.5); Globulin 3.1 g/dL (1.6-3.3); Non-African American GFR(CKD) 70.1 (60.0-200.0); Potassium 3.5 mmol/L (3.5-5.5); Total Protein 6.6 g/dL (6.2-8.2)
--- NOTE | 2022-03-27 21:12 | PN ---
PROGRESS NOTE CHIEF COMPLAINT: Shortness of breath, alcoholism, hypertension, and elevated liver function studies. HISTORY OF PRESENT ILLNESS: This gentleman deteriorated today dropping his pulse ox down into the 80s and 70s. He did not have a chest pain. Studies that were obtained included D-dimer, which is normal, but his BNP was elevated. It was normal several days ago. A CTA was ordered and he was seen by Pulmonology and moved to ICU. PHYSICAL EXAMINATION: LUNGS: He had decreased breath sounds with scattered rales and rhonchi. CARDIAC: Normal. ABDOMEN: Soft, nontender. IMPRESSION: 1. Acute respiratory failure. 2. Bronchial pneumonia. 3. Rule out pulmonary embolism. 4. Alcoholism. 5. Hypertension. PLAN: Move to ICU. ROCIO / MICHAEL: [id number] /
[2022-03-27 23:28] LABS: Appearance,Urine Clear (Clear); Bilirubin,Urine Negative (Negative); Blood,Urine Negative (Negative); Color,Urine Yellow; Glucose,Urine (UA) Negative (Negative); Ketones,Urine Negative (Negative); Leukocyte Esterase,Urine Negative (Negative); Nitrite,Urine Negative (Negative); Protein,Urine Trace (Negative); Specific Gravity,Urine 1.022 (1.001-1.035); Urobilinogen,Urine <2.0 mg/dL (<2.0)
[2022-03-28] MEDS: ACETAMINOPHEN TAB 325 MG TAB PO PRN ×3 (01:19→20:42)
[2022-03-28] MEDS: PIPERACILLIN-TAZOBACTAM 3.375 GM in SODIUM CHLORIDE 0.9% 100 ML IVPB SCH ×3 (04:12→20:42)
[2022-03-28] MEDS: SUCRALFATE 1 GM TAB PO SCH ×3 (07:10→17:32)
--- NOTE | 2022-03-28 07:21 | XR ---
EXAMINATION TYPE: XR chest 1V portable DATE OF EXAM: 03/28/2022 HISTORY: Shortness of breath. COMPARISON: 03/27/2022 TECHNIQUE: Single view of the chest is submitted. FINDINGS: Demonstrated are scattered senescent parenchymal change. Scattered bilateral airspace and interstitial infiltrates persist although there may be slight interv al improvement. Correlate clinically. Continued follow-up advised. The heart is stable. Hilar and mediastinal structures are within normal limits. Degenerative changes are seen of the dorsal spine. IMPRESSION: 1. Scattered bilateral airspace and interstitial infiltrates persist although there may be slight in terval improvement. Correlate clinically. Continued follow-up advised.
[2022-03-28] MEDS: ALBUTEROL NEBULIZED 2.5 MG/3 ML INHALATION SCH ×4 (07:26→19:15)
[2022-03-28] MEDS: BUDESONIDE 0.5 MG/2 ML NEBU INHALATION SCH ×2 (07:26→19:15)
[2022-03-28 09:09] LABS: Basophils % (A) 0 %; Eosinophils % (A) 0 %; HCT 38.1 % (39.0-53.0); HGB 12.7 gm/dL (13.0-17.5); Lymphocytes # (A) 0.9 k/uL (1.0-4.8); Lymphocytes % (A) 13 %; MCH 33.6 pg (25.0-35.0); MCHC 33.2 g/dL (31.0-37.0); MCV 101.3 fL (80.0-100.0); Macrocytosis Slight; Mean Platelet Volume 10.7; Monocytes # (A) 0.6 k/uL (0-1.0); Monocytes % (A) 8 %; Neutrophils # (A) 5.4 k/uL (1.3-7.7); Neutrophils % (A) 77 %; RBC 3.76 m/uL (4.30-5.90); RDW 14.8 % (11.5-15.5); WBC 7.1 k/uL (3.8-10.6)
[2022-03-28 09:18] LABS: Calcium 7.5 mg/dL (8.4-10.2); Potassium 3.6 mmol/L (3.5-5.1)
[2022-03-28 09:20] LABS: Platelet Count 73 k/uL (150-450)
[2022-03-28] MEDS: FUROSEMIDE 10 MG/ML 4 ML VIAL IV SCH ×2 (09:22→20:42)
[2022-03-28] MEDS: MAGNESIUM OXIDE 400 MG TAB PO SCH ×2 (09:22→20:43)
[2022-03-28] MEDS: TAMSULOSIN 0.4 MG CAP.ER.24H PO SCH (09:22)
[2022-03-28] MEDS: LOSARTAN 50 MG TAB PO SCH (09:23)
[2022-03-28] MEDS: METOPROLOL SUCCINATE (ER) 100 MG TAB.ER.24H PO SCH (09:23)
[2022-03-28] MEDS: RIVAROXABAN 20 MG TAB PO SCH (09:23)
[2022-03-28] MEDS: amLODIPine 10 MG TAB PO SCH (09:23)
[2022-03-28] MEDS: LORATADINE-PSEUDOEPH 5-120 MG 1 EACH TAB.ER.12H PO SCH (09:23)
[2022-03-28] MEDS: PANTOPRAZOLE 40 MG/10 ML VIAL IVP SCH ×2 (09:23→20:42)
[2022-03-28] MEDS: hydrALAZINE HCL 50 MG TAB PO SCH ×4 (09:23→20:43)
[2022-03-28] MEDS: POTASSIUM CHLORIDE ER 20 MEQ TAB.ER PO SCH ×2 (09:23→20:43)
[2022-03-28] MEDS: ATORVASTATIN 40 MG TAB PO SCH (09:23)
--- NOTE | 2022-03-28 11:12 | P.PN ---
Subjective Progress Note Date: 03/28/22 Principal diagnosis: acute hypoxic respiratory failure secondary to acute diastolic congestive heart failure, possible aspiration pneumonia This is a pleasant 66-year-old male patient with a known history of alcoholism, atrial fibrillation, anticoagulated with Xarelto, nonsmoker, chronic liver disease, pancytopenia, previous alcohol withdrawal seizures, portal hypertension, esophageal variceal bleeding, diabetes mellitus, hyperlipidemia, hypertension. He was admitted here back on 03/21/2022 for shortness of breath and cough and congestion. If he was admitted to the regular medical floor and being followed by medicine and infectious disease. He had one blood culture po sitive for coag-negative staph. Today the patient developed significant shortness of breath, hypoxemia and went from 2 L up to 6 L high flow nasal cannula with O2 saturation still in the 80s. We're consulted for the same. He is seen in his room urgently. He is quite dyspneic. His O2 saturations 82% on 6 L nasal cannula. He is given Lasix 40 mg IVP 1. Ativan 1 mg IV. Chest x- ray reveals significant bilateral multifocal infiltrates/edema. He was placed on BiPAP 16/6 and 50% FiO2 and to be admitted to the intensive care unit. White count 5.8. Hemoglobin 13.0. D-dimer 0.44. The patient is anticoagulated with Xarelto. He's been on DuoNeb inhalations and Pulmicort inhalations. Patient was reevaluated today on 03/28/22, patient was seen yesterday and was transferred to the ICU. He is now in the ICU, he is receiving Lasix is also receiving antibiotics in the form of Zosyn. Patient is feeling much better, overnight he was on BiPAP 12/6/50%, presently on 5 L nasal cannula. His IV fluids at KVO, patient had good urine output overnight, and a chest x-ray is showing definite improvement nonetheless he continues to have interstitial infiltrates/edema bilaterally. But after improvement compared to the chest x- ray yesterday. And the patient had significant clinical improvement today compared to yesterday.WBC count today is 7.1 hemoglobin is 12.7 a left was are normal renal profile showed a BUN of 18 creatinine of 1.17.pro-calcitonin level is pending Objective - Vital Signs Vital signs: Vital Signs Temp 99.5 F 03/28/22 08:00 Pulse 117 H 03/28/22 09:00 Resp 18 03/28/22 09:00 BP 116/71 03/28/22 09:00 Pulse Ox 90 L 03/28/22 09:00 FiO2 50 03/28/22 03:08 Intake & Output 03/27/22 03/28/22 03/28/22 18:59 06:59 18:59 Intake Total 420 410 20 Output Total 3100 710 450 Balance -2680 -300 -430 Weight 91.6 kg Intake: IV 180 260 20 0.9 80 60 20 Piperacillin-Tazobactam 3 100 200 .375 gm In Sodium Chloride 0.9% 100 ml @ 25 mls/hr IVPB Q8H TANYA Rx#: [id number] Oral 240 150 Output: Urine 3100 710 450 Other: Voiding Method Bedpan Indwelling Catheter Indwelling Catheter # Voids 3 - Exam Physical Exam: Revealed a 66-year-old white male in no distress, on 5 L nasal cannula. He is off BiPAP. Head: Atraumatic, normocephalic. HEENT:[Neck is supple.] [No neck masses.] [No thyromegaly.] [No JVD.] Chest: minimal fine crackles at the bases, no rhonchi and no wheezes. Cardiac Exam: [Normal S1 and S2, no S3 gallop, no murmur.] Abdomen: [Soft, nontender, no megaly, no rebound, no guarding, normal bowel sounds.] Extremities: [No clubbing, no edema, no cyanosis.] Neurological Exam: [No focal neurologic deficit.]alert and oriented 3 focal neurologic deficit. Psychiatric: Normal mood affect and normal mental status examination. Skin: No rashes. - Labs CBC & Chem 7: 03/28/22 07:18 03/28/22 07:18 Labs: Abnormal Lab Results - Last 24 Hours (Table) 03/27/22 03/27/22 03/27/22 Range/Units 10:05 10:05 11:26 RBC 4.03 L (4.30-5.90) m/uL Hgb (13.0-17.5) gm/dL Hct (39.0-53.0) % MCV 100.4 H (80.0-100.0) fL Plt Count 73 L (150-450) k/uL Lymphocytes # 0.8 L (1.0-4.8) k/uL Chloride (98-107) mmol/L Carbon Dioxide 18.6 L (20.0-27.5) mmol/L BUN/Creatinine Ratio 9.82 L (12.00-20.00) Ratio Glucose 129 H (70-110) mg/dL POC Glucose (mg/dL) (70-110) mg/dL Calcium 7.8 L (8.7-10.3) mg/dL Total Bilirubin (0.2-1.3) mg/dL AST 81 H (14-35) U/L ALT 56 H (10-49) U/L C-Reactive Protein 4.60 H (0.00-0.80) mg/dL Albumin 3.5 L (3.8-4.9) g/dL Albumin/Globulin Ratio 1.13 L (1.60-3.17) g/dL Procalcitonin 0.55 H (0.02-0.09) ng/mL Urine Protein (Negative) 03/27/22 03/27/22 03/27/22 Range/Units 11:26 12:18 22:46 RBC (4.30-5.90) m/uL Hgb (13.0-17.5) gm/dL Hct (39.0-53.0) % MCV (80.0-100.0) fL Plt Count (150-450) k/uL Lymphocytes # (1.0-4.8) k/uL Chloride 110 H (98-107) mmol/L Carbon Dioxide 18 L (20.0-27.5) mmol/L BUN/Creatinine Ratio (12.00-20.00) Ratio Glucose 157 H (70-110) mg/dL POC Glucose (mg/dL) 161 H (70-110) mg/dL Calcium 7.4 L (8.7-10.3) mg/dL Total Bilirubin 1.4 H (0.2-1.3) mg/dL AST 87 H (14-35) U/L ALT 52 H (10-49) U/L C-Reactive Protein (0.00-0.80) mg/dL Albumin 3.4 L (3.8-4.9) g/dL Albumin/Globulin Ratio (1.60-3.17) g/dL Procalcitonin (0.02-0.09) ng/mL Urine Protein Trace H (Negative) 03/28/22 03/28/22 Range/Units 07:18 07:18 RBC 3.76 L (4.30-5.90) m/uL Hgb 12.7 L (13.0-17.5) gm/dL Hct 38.1 L (39.0-53.0) % MCV 101.3 H (80.0-100.0) fL Plt Count 73 L (150-450) k/uL Lymphocytes # 0.9 L (1.0-4.8) k/uL Chloride 110 H (98-107) mmol/L Carbon Dioxide (20.0-27.5) mmol/L BUN/Creatinine Ratio (12.00-20.00) Ratio Glucose 116 H (70-110) mg/dL POC Glucose (mg/dL) (70-110) mg/dL Calcium 7.5 L (8.7-10.3) mg/dL Total Bilirubin (0.2-1.3) mg/dL AST (14-35) U/L ALT (10-49) U/L C-Reactive Protein (0.00-0.80) mg/dL Albumin (3.8-4.9) g/dL Albumin/Globulin Ratio (1.60-3.17) g/dL Procalcitonin (0.02-0.09) ng/mL Urine Protein (Negative) Microbiology - Last 24 Hours (Table) 03/23/22 06:08 Blood Culture - Preliminary Blood No Growth after 120 hours 03/27/22 07:55 Gram Stain - Preliminary Sputum Sputum Culture - Preliminary 03/21/22 13:55 Blood Culture - Final Blood No Growth after 144 hours Assessment and Plan Assessment: Acute hypoxemic respiratory failure secondary to suspected aspiration versus flash pulmonary edema Chest pain, acute coronary syndrome ruled out Suspect diastolic congestive heart failure, ejection fraction 55-60% Alcoholism, states last drink was one month ago Transaminitis secondary to above Chronic alcoholic liver disease with complications related to alcoholism including pancytopenia, esophageal variceal bleed Chronic atrial fibrillation with a left ventricular dimension with Xarelto Previous history of pulmonary embolism, maintained on Xarelto Acute kidney injury, likely secondary to vascular volume depletion, improved Chronic anxiety/depression Hypertension Previous history of alcoholic seizures Previous history of TIA Nonsmoker recommendation: Considering the improvement overnight, I am suspecting that the patient has significant component of diastolic congestive heart failure, hence will continue diuretics. Patient is clinically better and his chest x-ray is showing definite improvement. Continue antibiotics, however if pro calcitonin level is normal antibiotic could be discontinued. Continue BiPAP as needed, Continue to monitor in the ICU. Continue Zosyn. Check sputum cultures if available. Continue GI and DVT prophylaxis. Patient is already on Xarelto. We'll continue to follow. Time with Patient: Less than 30
[2022-03-28] MEDS: SODIUM CHLORIDE 0.9% 1,000 ML IV SCH (14:26)
[2022-03-28] MEDS: THIAMINE 100 MG TAB PO SCH (14:26)
[2022-03-28] MEDS: IPRATROPIUM-ALBUTEROL 3 ML NEB INHALATION PRN (15:00)
[2022-03-28] MEDS: polyethylene glycoL 3350 17 GM POWD.PACK PO SCH (15:40)
[2022-03-28] MEDS: ONDANSETRON 4 MG/2 ML VIAL IVP PRN (20:42)
[2022-03-28] MEDS: traZODone HCL 50 MG TAB PO PRN (22:53)
--- NOTE | 2022-03-28 23:53 | P.PN ---
Subjective Progress Note Date: 03/27/22 Principal diagnosis: Bacteremia Patient is a 66-year-old male with multiple comorbidities present to the ER for evaluation of chest pain or shortness of breath patient did not have any fever and the patient did have a normal white count blood cultures came back positive for gram-positive cocci that prompted this infectious disease consultation. On today's evaluation that is 03/27/2022 the patient remains to be afebrile, the patient did have worsening of his respiratory status requiring transfer to the ICU and the patient to be started on a BiPAP patient denies having any chest pain no worsening cough no nausea no vomiting no choking on the food no abdominal pain no diarrhea Objective - Vital Signs Vital signs: Vital Signs Temp 97.7 F 03/27/22 09:12 Pulse 116 H 03/27/22 11:17 Resp 36 H 03/27/22 10:51 BP 136/72 03/27/22 10:51 Pulse Ox 84 L 03/27/22 10:51 FiO2 50 03/27/22 11:44 Intake & Output 03/26/22 03/27/22 03/27/22 18:59 06:59 18:59 Intake Total 120 240 Balance 120 240 Intake: Oral 120 240 Other: Voiding Method Toilet Urinal # Voids 1 2 - Exam GENERAL DESCRIPTION: An elderly male lying in bed in no distress RESPIRATORY SYSTEM: Unlabored breathing , decreased breath sounds at bases HEART: S1 S2 regular rate and rhythm , ABDOMEN: Soft , no tenderness EXTREMITIES: No edema feet - Labs CBC & Chem 7: 03/28/22 07:18 03/28/22 07:18 Labs: Abnormal Lab Results - Last 24 Hours (Table) 03/26/22 03/27/22 03/27/22 Range/Units 11:38 10:05 11:26 RBC 3.94 L 4.03 L (4.30-5.90) m/uL MCV 100.6 H 100.4 H (80.0-100.0) fL Plt Count 60 L 73 L (150-450) k/uL Lymphocytes # 0.7 L 0.8 L (1.0-4.8) k/uL Chloride 113 H (98-107) mmol/L Carbon Dioxide 19 L (22-30) mmol/L Glucose 144 H (74-99) mg/dL POC Glucose (mg/dL) (70-110) mg/dL Calcium 7.6 L (8.4-10.2) mg/dL Total Bilirubin (0.2-1.3) mg/dL AST 110 H (17-59) U/L ALT 61 H (4-49) U/L Albumin (3.5-5.0) g/dL 03/27/22 03/27/22 Range/Units 11:26 12:18 RBC (4.30-5.90) m/uL MCV (80.0-100.0) fL Plt Count (150-450) k/uL Lymphocytes # (1.0-4.8) k/uL Chloride 110 H (98-107) mmol/L Carbon Dioxide 18 L (22-30) mmol/L Glucose 157 H (74-99) mg/dL POC Glucose (mg/dL) 161 H (70-110) mg/dL Calcium 7.4 L (8.4-10.2) mg/dL Total Bilirubin 1.4 H (0.2-1.3) mg/dL AST 87 H (17-59) U/L ALT 52 H (4-49) U/L Albumin 3.4 L (3.5-5.0) g/dL Microbiology - Last 24 Hours (Table) 03/27/22 07:55 Sputum Culture - Preliminary Sputum 03/23/22 06:08 Blood Culture - Preliminary Blood No Growth after 96 hours 03/21/22 13:55 Blood Culture - Preliminary Blood No Growth after 120 hours Assessment and Plan (1) Positive blood cultures Current Visit: Yes Status: Acute Code(s): R78.81 - BACTEREMIA SNOMED Code(s): 516992793 Plan: 1patient with gram-positive bacteremia in this patient predominantly with the respiratory symptoms however chest x-ray was negative for any consolidation patient not running any fever White count is normal concern for possible skin contamination rather than true infection. 2blood cultures has been repeated which are so far negative 3the patient blood culture has been finalized as coagulase-negative staph more likely skin contamination , vancomycin was discontinued yesterday and will be monitored closely off antibiotic 4patient did have a worsening of his respiratory status with right-sided infiltrate concern for possible nosocomial/aspiration pneumonia Zosyn has been added we will obtain a sputum for gram stain and culture and monitor clinical course closely Time with Patient: Less than 30
--- NOTE | 2022-03-28 23:56 | P.PN ---
Subjective Progress Note Date: 03/28/22 Principal diagnosis: Bacteremia Patient is a 66-year-old male with multiple comorbidities present to the ER for evaluation of chest pain or shortness of breath patient did not have any fever and the patient did have a normal white count blood cultures came back positive for gram-positive cocci that prompted this infectious disease consultation. On today's evaluation that is 03/28/2022 patient did have a fever of 100.7 F after midnight and did have a low-grade fever this afternoon patient is currently off the BiPAP on 6 L nasal cannula patient denies having any chest pain he Did have a cough with green sputum denies any nausea no vomiting and no diarrhea Objective - Vital Signs Vital signs: Vital Signs Temp 100.0 F H 03/28/22 14:00 Pulse 98 03/28/22 14:00 Resp 29 H 03/28/22 14:00 BP 92/51 03/28/22 14:00 Pulse Ox 90 L 03/28/22 14:00 FiO2 50 03/28/22 03:08 Intake & Output 03/27/22 03/28/22 03/28/22 18:59 06:59 18:59 Intake Total 420 410 140 Output Total 3100 710 1650 Balance -2680 -300 -1510 Weight 91.6 kg Intake: IV 180 260 140 0.9 80 60 40 Piperacillin-Tazobactam 3 100 200 100 .375 gm In Sodium Chloride 0.9% 100 ml @ 25 mls/hr IVPB Q8H [facility] Rx#: [id number] Oral 240 150 Output: Urine 3100 710 1650 Other: Voiding Method Bedpan Indwelling Catheter Indwelling Catheter Indwelling Catheter # Voids 3 - Exam GENERAL DESCRIPTION: An elderly male lying in bed in no distress RESPIRATORY SYSTEM: Unlabored breathing , decreased breath sounds at bases HEART: S1 S2 regular rate and rhythm , ABDOMEN: Soft , no tenderness EXTREMITIES: No edema feet - Labs CBC & Chem 7: 03/28/22 07:18 03/28/22 07:18 Labs: Abnormal Lab Results - Last 24 Hours (Table) 03/27/22 03/27/22 03/27/22 Range/Units 10:05 10:05 22:46 RBC (4.30-5.90) m/uL Hgb (13.0-17.5) gm/dL Hct (39.0-53.0) % MCV (80.0-100.0) fL Plt Count (150-450) k/uL Lymphocytes # (1.0-4.8) k/uL Chloride (98-107) mmol/L Carbon Dioxide 18.6 L (20.0-27.5) mmol/L BUN/Creatinine Ratio 9.82 L (12.00-20.00) Ratio Glucose 129 H (70-110) mg/dL Calcium 7.8 L (8.7-10.3) mg/dL AST 81 H (14-35) U/L ALT 56 H (10-49) U/L C-Reactive Protein 4.60 H (0.00-0.80) mg/dL Albumin 3.5 L (3.8-4.9) g/dL Albumin/Globulin Ratio 1.13 L (1.60-3.17) g/dL Procalcitonin 0.55 H (0.02-0.09) ng/mL Urine Protein Trace H (Negative) 03/28/22 03/28/22 Range/Units 07:18 07:18 RBC 3.76 L (4.30-5.90) m/uL Hgb 12.7 L (13.0-17.5) gm/dL Hct 38.1 L (39.0-53.0) % MCV 101.3 H (80.0-100.0) fL Plt Count 73 L (150-450) k/uL Lymphocytes # 0.9 L (1.0-4.8) k/uL Chloride 110 H (98-107) mmol/L Carbon Dioxide (20.0-27.5) mmol/L BUN/Creatinine Ratio (12.00-20.00) Ratio Glucose 116 H (70-110) mg/dL Calcium 7.5 L (8.7-10.3) mg/dL AST (14-35) U/L ALT (10-49) U/L C-Reactive Protein (0.00-0.80) mg/dL Albumin (3.8-4.9) g/dL Albumin/Globulin Ratio (1.60-3.17) g/dL Procalcitonin (0.02-0.09) ng/mL Urine Protein (Negative) Microbiology - Last 24 Hours (Table) 03/23/22 06:08 Blood Culture - Preliminary Blood No Growth after 120 hours 03/27/22 07:55 Gram Stain - Preliminary Sputum Sputum Culture - Preliminary 03/21/22 13:55 Blood Culture - Final Blood No Growth after 144 hours Assessment and Plan (1) Positive blood cultures Current Visit: Yes Status: Acute Code(s): R78.81 - BACTEREMIA SNOMED Code(s): 079554789 Plan: 1patient with gram-positive bacteremia in this patient predominantly with the respiratory symptoms however chest x-ray was negative for any consolidation patient not running any fever White count is normal concern for possible skin contamination rather than true infection. 2blood cultures has been repeated which are so far negative 3the patient blood culture has been finalized as coagulase-negative staph more likely skin contamination , vancomycin was discontinued yesterday and will be monitored closely off antibiotic 4patient did have a worsening of his respiratory status with right-sided infiltrate concern for possible nosocomial/aspiration pneumonia, Sputum has been obtained which are currently pending, patient did have some improvement in his respiratory status we will continue with the Zosyn and monitor his clinical course closely
[2022-03-29 03:37] LABS: Basophils % (A) 0 %; Eosinophils % (A) 1 %; HCT 35.2 % (39.0-53.0); HGB 12.1 gm/dL (13.0-17.5); Lymphocytes # (A) 0.9 k/uL (1.0-4.8); Lymphocytes % (A) 15 %; MCH 34.1 pg (25.0-35.0); MCHC 34.3 g/dL (31.0-37.0); MCV 99.3 fL (80.0-100.0); Mean Platelet Volume 10.6; Monocytes # (A) 0.5 k/uL (0-1.0); Monocytes % (A) 8 %; Neutrophils # (A) 4.8 k/uL (1.3-7.7); Neutrophils % (A) 76 %; Platelet Count 72 k/uL (150-450); RBC 3.54 m/uL (4.30-5.90); RDW 14.5 % (11.5-15.5); WBC 6.3 k/uL (3.8-10.6)
[2022-03-29 03:49] LABS: C Reactive Protein 8.8 mg/dL (<1.0); Calcium 7.6 mg/dL (8.4-10.2); Potassium 3.2 mmol/L (3.5-5.1)
[2022-03-29] MEDS: ONDANSETRON 4 MG/2 ML VIAL IVP PRN ×2 (04:24→17:47)
[2022-03-29] MEDS: PIPERACILLIN-TAZOBACTAM 3.375 GM in SODIUM CHLORIDE 0.9% 100 ML IVPB SCH ×3 (04:26→19:57)
[2022-03-29] MEDS ORDERED: POTASSIUM CHLORIDE ER 20 MEQ TAB.ER PO SCH (06:00)
[2022-03-29] MEDS: ACETAMINOPHEN TAB 325 MG TAB PO PRN ×2 (06:54→16:26)
[2022-03-29] MEDS: BUDESONIDE 0.5 MG/2 ML NEBU INHALATION SCH ×2 (07:12→20:40)
[2022-03-29] MEDS: ALBUTEROL NEBULIZED 2.5 MG/3 ML INHALATION SCH ×4 (07:12→20:41)
--- NOTE | 2022-03-29 07:30 | XR ---
EXAMINATION TYPE: XR chest 1V portable DATE OF EXAM: 03/29/2022 HISTORY: Shortness of breath. COMPARISON: 03/28/2022 TECHNIQUE: Single view of the chest is submitted. FINDINGS: Demonstrated are scattered senescent parenchymal change. Mixed interstitial and alveolar infiltrates remain essentially stable throughout both lung guadalupe. The heart is stable. Hilar and mediastinal structures are within normal limits. Degenerative changes are seen of the dorsal spine. IMPRESSION: 1. Mixed interstitial and alveolar infiltrates remain essentially stable throughout both lung guadalupe .
[2022-03-29] MEDS: polyethylene glycoL 3350 17 GM POWD.PACK PO SCH (07:40)
[2022-03-29] MEDS: PANTOPRAZOLE 40 MG/10 ML VIAL IVP SCH ×2 (08:07→19:58)
[2022-03-29] MEDS: FUROSEMIDE 10 MG/ML 4 ML VIAL IV SCH (08:07)
[2022-03-29] MEDS: POTASSIUM CHLORIDE 10 MEQ in WATER FOR INJECTION 1 100ML.BAG IVPB SCH ×6 (08:08→19:59)
[2022-03-29] MEDS: SUCRALFATE 1 GM TAB PO SCH ×3 (08:08→16:31)
[2022-03-29] MEDS: LOSARTAN 50 MG TAB PO SCH (09:22)
[2022-03-29] MEDS: METOPROLOL SUCCINATE (ER) 100 MG TAB.ER.24H PO SCH (09:22)
[2022-03-29] MEDS: MAGNESIUM OXIDE 400 MG TAB PO SCH ×2 (09:22→19:58)
[2022-03-29] MEDS: TAMSULOSIN 0.4 MG CAP.ER.24H PO SCH (09:22)
[2022-03-29] MEDS: amLODIPine 10 MG TAB PO SCH (09:22)
[2022-03-29] MEDS: RIVAROXABAN 20 MG TAB PO SCH (09:22)
[2022-03-29] MEDS: POTASSIUM CHLORIDE ER 20 MEQ TAB.ER PO SCH ×2 (09:23→19:58)
[2022-03-29] MEDS: ATORVASTATIN 40 MG TAB PO SCH (09:23)
[2022-03-29] MEDS: LORATADINE-PSEUDOEPH 5-120 MG 1 EACH TAB.ER.12H PO SCH (09:23)
--- NOTE | 2022-03-29 10:13 | P.PN ---
Subjective Progress Note Date: 03/29/22 Principal diagnosis: acute hypoxic respiratory failure secondary to acute diastolic congestive heart failure, possible aspiration pneumonia This is a pleasant 66-year-old male patient with a known history of alcoholism, atrial fibrillation, anticoagulated with Xarelto, nonsmoker, chronic liver disease, pancytopenia, previous alcohol withdrawal seizures, portal hypertension, esophageal variceal bleeding, diabetes mellitus, hyperlipidemia, hypertension. He was admitted here back on 03/21/2022 for shortness of breath and cough and congestion. If he was admitted to the regular medical floor and being followed by medicine and infectious disease. He had one blood culture po sitive for coag-negative staph. Today the patient developed significant shortness of breath, hypoxemia and went from 2 L up to 6 L high flow nasal cannula with O2 saturation still in the 80s. We're consulted for the same. He is seen in his room urgently. He is quite dyspneic. His O2 saturations 82% on 6 L nasal cannula. He is given Lasix 40 mg IVP 1. Ativan 1 mg IV. Chest x- ray reveals significant bilateral multifocal infiltrates/edema. He was placed on BiPAP 16/6 and 50% FiO2 and to be admitted to the intensive care unit. White count 5.8. Hemoglobin 13.0. D-dimer 0.44. The patient is anticoagulated with Xarelto. He's been on DuoNeb inhalations and Pulmicort inhalations. Patient was reevaluated today on 03/28/22, patient was seen yesterday and was transferred to the ICU. He is now in the ICU, he is receiving Lasix is also receiving antibiotics in the form of Zosyn. Patient is feeling much better, overnight he was on BiPAP 12/6/50%, presently on 5 L nasal cannula. His IV fluids at KVO, patient had good urine output overnight, and a chest x-ray is showing definite improvement nonetheless he continues to have interstitial infiltrates/edema bilaterally. But after improvement compared to the chest x- ray yesterday. And the patient had significant clinical improvement today compared to yesterday.WBC count today is 7.1 hemoglobin is 12.7 a left was are normal renal profile showed a BUN of 18 creatinine of 1.17.pro-calcitonin level is pending Patient was reevaluated today on 03/29/22, patient remains in the ICU, remains on 6 L high flow nasal cannula, O2 saturation is marginal between 88 and 91%. Clinically the patient is feeling better, breathing easier, he had few episodes of blood-tinged sputum. Patient is on Zosyn, chest x-ray continues to show bilateral interstitial infiltrates/edema. Not much of a change in the chest x- ray in the last 2 days. Pro-calcitonin level came back elevated at 0.55 his WBC count is 6.3 hemoglobin is 12.1, electrolytes are normal BUN is 22 creatinine is up to 1.3 to hence I cut down his dose of diuretics to once daily instead of twice daily. Patient remains on Xarelto. Objective - Vital Signs Vital signs: Vital Signs Temp 98.8 F 03/29/22 08:00 Pulse 107 H 03/29/22 09:00 Resp 17 03/29/22 09:00 BP 103/66 03/29/22 09:00 Pulse Ox 88 L 03/29/22 09:00 FiO2 50 03/29/22 03:19 Intake & Output 03/28/22 03/29/22 03/29/22 18:59 06:59 18:59 Intake Total 220 1540 120 Output Total 1950 1440 75 Balance -1731 100 45 Weight 90.4 kg Intake: IV 220 460 20 0.9 120 260 20 Piperacillin-Tazobactam 3 100 200 .375 gm In Sodium Chloride 0.9% 100 ml @ 25 mls/hr IVPB Q8H [facility] Rx#: [id number] Intake, IV Titration 100 Amount Potassium Chloride 10 meq 100 In Water For Injection 1 100ml.bag @ 100 mls/hr IVPB Q1HR [facility] Rx#: [id number] Oral 1080 Output: Urine 1950 1440 75 Other: Voiding Method Indwelling Catheter Indwelling Catheter Indwelling Catheter - Exam Physical Exam: Revealed a 66-year-old white male in no distress, on 6 L nasal cannula. He is off BiPAP. Head: Atraumatic, normocephalic. HEENT:[Neck is supple.] [No neck masses.] [No thyromegaly.] [No JVD.] Chest: Bibasilar crackles persists. Rhonchi on forced expiratory maneuver noted.. Cardiac Exam: [Normal S1 and S2, no S3 gallop, no murmur.] Abdomen: [Soft, nontender, no megaly, no rebound, no guarding, normal bowel sounds.] Extremities: [No clubbing, no edema, no cyanosis.] Neurological Exam: [No focal neurologic deficit.]alert and oriented 3 focal neurologic deficit. Psychiatric: Normal mood affect and normal mental status examination. Skin: No rashes. - Labs CBC & Chem 7: 03/29/22 03:09 03/29/22 03:09 Labs: Abnormal Lab Results - Last 24 Hours (Table) 03/29/22 03/29/22 Range/Units 03:09 03:09 RBC 3.54 L (4.30-5.90) m/uL Hgb 12.1 L (13.0-17.5) gm/dL Hct 35.2 L (39.0-53.0) % Plt Count 72 L (150-450) k/uL Lymphocytes # 0.9 L (1.0-4.8) k/uL Potassium 3.2 L (3.5-5.1) mmol/L BUN 22 H (9-20) mg/dL Creatinine 1.32 H (0.66-1.25) mg/dL Glucose 144 H (74-99) mg/dL Calcium 7.6 L (8.4-10.2) mg/dL C-Reactive Protein 8.8 H (<1.0) mg/dL Microbiology - Last 24 Hours (Table) 03/23/22 06:08 Blood Culture - Final Blood No Growth after 144 hours 03/27/22 07:55 Gram Stain - Preliminary Sputum Sputum Culture - Preliminary Assessment and Plan Assessment: Acute hypoxemic respiratory failure secondary to suspected aspiration versus flash pulmonary edema, however with elevated pro calcitonin level, I'm strongly suspecting pneumonia. Chest pain, acute coronary syndrome ruled out Suspect some component of diastolic congestive heart failure, ejection fraction 55-60% Alcoholism, states last drink was one month ago Transaminitis secondary to above Chronic alcoholic liver disease with complications related to alcoholism including pancytopenia, esophageal variceal bleed Chronic atrial fibrillation with a left ventricular dimension with Xarelto Previous history of pulmonary embolism, maintained on Xarelto Acute kidney injury, likely secondary to vascular volume depletion, improved Chronic anxiety/depression Hypertension Previous history of alcoholic seizures Previous history of TIA Nonsmoker recommendation: Continue antibiotics since the patient had elevated pro calcitonin level Cut down on diuretics to once daily specially with slight elevation of his creatinine over the last 2 days. Continue BiPAP as needed, Continue to monitor in the ICU. Continue Zosyn. Sputum cultures are pending Continue GI and DVT prophylaxis. Patient is already on Xarelto. We'll continue to follow. Time with Patient: Less than 30
[2022-03-29] MEDS: hydrALAZINE HCL 50 MG TAB PO SCH ×2 (11:29→16:30)
[2022-03-29] MEDS: SODIUM CHLORIDE 0.9% 1,000 ML IV SCH (13:25)
[2022-03-29] MEDS: THIAMINE 100 MG TAB PO SCH (16:26)
[2022-03-29] MEDS ORDERED: SODIUM CHLORIDE 0.65% NASAL SPRAY 44 ML BTL NASAL PRN (19:25)
[2022-03-29] MEDS: IPRATROPIUM-ALBUTEROL 3 ML NEB INHALATION PRN (20:40)
[2022-03-29] MEDS: traZODone HCL 50 MG TAB PO PRN (22:17)
[2022-03-30] MEDS: ONDANSETRON 4 MG/2 ML VIAL IVP PRN ×2 (02:44→16:42)
[2022-03-30] MEDS: hydrALAZINE HCL 50 MG TAB PO SCH ×3 (02:45→17:02)
[2022-03-30] MEDS: LORazepam 1 MG/0.5 ML VIAL IV PRN ×2 (02:48→22:16)
[2022-03-30] MEDS: IPRATROPIUM-ALBUTEROL 3 ML NEB INHALATION PRN ×4 (03:15→19:45)
[2022-03-30] MEDS: PIPERACILLIN-TAZOBACTAM 3.375 GM in SODIUM CHLORIDE 0.9% 100 ML IVPB SCH ×3 (04:42→20:39)
[2022-03-30] MEDS: ALBUTEROL NEBULIZED 2.5 MG/3 ML INHALATION SCH (07:18)
[2022-03-30] MEDS: BUDESONIDE 0.5 MG/2 ML NEBU INHALATION SCH (07:18)
--- NOTE | 2022-03-30 08:09 | P.PN ---
Subjective Progress Note Date: 03/29/22 Principal diagnosis: Bacteremia Patient is a 66-year-old male with multiple comorbidities present to the ER for evaluation of chest pain or shortness of breath patient did not have any fever and the patient did have a normal white count blood cultures came back positive for gram-positive cocci that prompted this infectious disease consultation. On today's evaluation that is 03/29/2022 patient did have low-grade fever 100.6F, the patient is back on BiPAP , patient denies having any chest pain he Did have a cough with occasional sputum denies any nausea no vomiting and no diarrhea Objective - Vital Signs Vital signs: Vital Signs Temp 99.2 F 03/29/22 07:22 Pulse 111 H 03/29/22 07:22 Resp 22 03/29/22 07:22 BP 115/68 03/29/22 07:22 Pulse Ox 93 L 03/29/22 07:22 FiO2 50 03/29/22 07:22 Intake & Output 03/29/22 07:59 Intake Total 740 Output Total 1185 Balance -445 Weight Intake: IV 340 0.9 240 Piperacillin-Tazobactam 3 100 .375 gm In Sodium Chloride 0.9% 100 ml @ 25 mls/hr IVPB Q8H [facility] Rx#: [id number] Potassium Chloride 10 meq In Water For Injection 1 100ml.bag @ 100 mls/hr IVPB Q1H [facility] Rx#: [id number] Intake, IV Titration 400 Amount Potassium Chloride 10 meq 400 In Water For Injection 1 100ml.bag @ 100 mls/hr IVPB Q1HR [facility] Rx#: [id number] Oral Output: Urine 1185 Other: Voiding Method Indwelling Catheter - Exam GENERAL DESCRIPTION: An elderly male lying in bed in no distress RESPIRATORY SYSTEM: Unlabored breathing , decreased breath sounds at bases HEART: S1 S2 regular rate and rhythm , ABDOMEN: Soft , no tenderness EXTREMITIES: No edema feet - Labs CBC & Chem 7: 03/29/22 03:09 03/29/22 16:49 Labs: Microbiology - Last 24 Hours (Table) 03/29/22 03:09 Blood Culture - Preliminary Blood No Growth after 24 hours 03/27/22 07:55 Gram Stain - Final Sputum Sputum Culture - Final 03/23/22 06:08 Blood Culture - Final Blood No Growth after 144 hours Assessment and Plan (1) Positive blood cultures Current Visit: Yes Status: Acute Code(s): R78.81 - BACTEREMIA SNOMED Code(s): 121807446 Plan: 1patient with gram-positive bacteremia in this patient predominantly with the respiratory symptoms however chest x-ray was negative for any consolidation patient not running any fever White count is normal concern for possible skin contamination rather than true infection. 2blood cultures has been repeated which are so far negative 3the patient blood culture has been finalized as coagulase-negative staph more likely skin contamination , vancomycin was discontinued yesterday and will be monitored closely off antibiotic 4patient did have a worsening of his respiratory status with right-sided infiltrate concern for possible nosocomial/aspiration pneumonia, Sputum has been obtained which are currently pending, patient did have repeat blood culture as well as covid 19 testing on which is currently pending continue Zosyn and monitor clinical course closely Time with Patient: Less than 30
[2022-03-30] MEDS: PANTOPRAZOLE 40 MG/10 ML VIAL IVP SCH ×2 (08:23→20:39)
[2022-03-30] MEDS: FUROSEMIDE 10 MG/ML 4 ML VIAL IV SCH (08:24)
[2022-03-30] MEDS: TAMSULOSIN 0.4 MG CAP.ER.24H PO SCH (08:25)
[2022-03-30] MEDS: SUCRALFATE 1 GM TAB PO SCH ×3 (08:25→16:47)
[2022-03-30] MEDS: MAGNESIUM OXIDE 400 MG TAB PO SCH ×2 (08:25→20:38)
[2022-03-30] MEDS: amLODIPine 10 MG TAB PO SCH (08:25)
[2022-03-30] MEDS: ATORVASTATIN 40 MG TAB PO SCH (08:25)
[2022-03-30] MEDS: POTASSIUM CHLORIDE ER 20 MEQ TAB.ER PO SCH ×2 (08:26→20:38)
[2022-03-30] MEDS: LOSARTAN 50 MG TAB PO SCH (08:26)
[2022-03-30 08:41] LABS: Basophils % (A) 0 %; Eosinophils % (A) 1 %; HCT 34.3 % (39.0-53.0); HGB 11.5 gm/dL (13.0-17.5); Lymphocytes # (A) 0.7 k/uL (1.0-4.8); Lymphocytes % (A) 13 %; MCH 33.9 pg (25.0-35.0); MCHC 33.6 g/dL (31.0-37.0); MCV 100.7 fL (80.0-100.0); Macrocytosis Slight; Mean Platelet Volume 11.4; Monocytes # (A) 0.4 k/uL (0-1.0); Monocytes % (A) 7 %; Neutrophils # (A) 4.5 k/uL (1.3-7.7); Neutrophils % (A) 78 %; RBC 3.41 m/uL (4.30-5.90); RDW 14.3 % (11.5-15.5); WBC 5.8 k/uL (3.8-10.6)
[2022-03-30 08:51] LABS: Platelet Count 84 k/uL (150-450)
[2022-03-30] MEDS: LORATADINE-PSEUDOEPH 5-120 MG 1 EACH TAB.ER.12H PO SCH (08:52)
[2022-03-30] MEDS: METOPROLOL SUCCINATE (ER) 100 MG TAB.ER.24H PO SCH (08:52)
[2022-03-30] MEDS: RIVAROXABAN 20 MG TAB PO SCH (08:52)
[2022-03-30] MEDS: polyethylene glycoL 3350 17 GM POWD.PACK PO SCH (08:53)
[2022-03-30 09:00] LABS: Calcium 7.3 mg/dL (8.4-10.2)
[2022-03-30] MEDS: ACETAMINOPHEN TAB 325 MG TAB PO PRN ×2 (09:45→16:57)
[2022-03-30] MEDS ORDERED: POTASSIUM CHLORIDE ER 20 MEQ TAB.ER PO SCH (10:00)
--- NOTE | 2022-03-30 12:11 | P.PN ---
Subjective Progress Note Date: 03/30/22 Principal diagnosis: Shortness of breath. This is a pleasant 66-year-old male patient with a known history of alcoholism, atrial fibrillation, anticoagulated with Xarelto, nonsmoker, chronic liver disease, pancytopenia, previous alcohol withdrawal seizures, portal hypertension, esophageal variceal bleeding, diabetes mellitus, hyperlipidemia, hypertension. He was admitted here back on 03/21/2022 for shortness of breath and cough and congestion. If he was admitted to the regular medical floor and being followed by medicine and infectious disease. He had one blood culture positive for coag-negative staph. Today the patient developed significant shortness of breath, hypoxemia and went from 2 L up to 6 L high flow nasal cannula with O2 saturation still in the 80s. We're consulted for the same. He is seen in his room urgently. He is quite dyspneic. His O2 saturations 82% on 6 L nasal cannula. He is given Lasix 40 mg IVP 1. Ativan 1 mg IV. Chest x- ray reveals significant bilateral multifocal infiltrates/edema. He was placed on BiPAP 16/6 and 50% FiO2 and to be admitted to the intensive care unit. White count 5.8. Hemoglobin 13.0. D-dimer 0.44. The patient is anticoagulated with Xarelto. He's been on DuoNeb inhalations and Pulmicort inhalations. Patient was reevaluated today on 03/28/22, patient was seen yesterday and was transferred to the ICU. He is now in the ICU, he is receiving Lasix is also receiving antibiotics in the form of Zosyn. Patient is feeling much better, overnight he was on BiPAP 12/6/50%, presently on 5 L nasal cannula. His IV fluids at KVO, patient had good urine output overnight, and a chest x-ray is showing definite improvement nonetheless he continues to have interstitial infiltrates/edema bilaterally. But after improvement compared to the chest x- ray yesterday. And the patient had significant clinical improvement today compared to yesterday.WBC count today is 7.1 hemoglobin is 12.7 a left was are normal renal profile showed a BUN of 18 creatinine of 1.17.pro-calcitonin level is pending Patient was reevaluated today on 03/29/22, patient remains in the ICU, remains on 6 L high flow nasal cannula, O2 saturation is marginal between 88 and 91%. Clinically the patient is feeling better, breathing easier, he had few episodes of blood-tinged sputum. Patient is on Zosyn, chest x-ray continues to show bila teral interstitial infiltrates/edema. Not much of a change in the chest x-ray in the last 2 days. Pro-calcitonin level came back elevated at 0.55 his WBC count is 6.3 hemoglobin is 12.1, electrolytes are normal BUN is 22 creatinine is up to 1.3 to hence I cut down his dose of diuretics to once daily instead of twice daily. Patient remains on Xarelto. Progress note dated 03/30/2022. The patient was admitted back on March 21. The patient came in with heart failure, diastolic in nature, questionable aspiration pneumonia. He came to the intensive care unit, on March 27. He is a 66-year-old male seen today in room 253. He remains on BiPAP, with settings of 12/6 and 50%. His blood c ultures are showing coag-negative staph. He is on Zosyn. His heart rate is 115. His saturations are 94%. White count 5.8, hemoglobin 11.5, hematocrit 34.3, and platelet count 84,000. Sodium 138, potassium 4, chlorides 106, CO2 26, BUN 19, and creatinine 1.23. No chest x-ray was done today. Objective - Vital Signs Vital signs: Vital Signs Temp 101.2 F H 03/30/22 09:00 Pulse 94 03/30/22 11:23 Resp 22 03/30/22 11:00 BP 113/71 03/30/22 11:00 Pulse Ox 93 L 03/30/22 11:00 FiO2 50 03/30/22 11:12 Intake & Output 03/29/22 03/30/22 03/30/22 18:59 06:59 18:59 Intake Total 740 1080 80 Output Total 1185 785 975 Balance -445 295 -895 Weight 90.3 kg 90.3 kg Intake: IV 340 540 80 0.9 240 240 80 Piperacillin-Tazobactam 3 100 200 .375 gm In Sodium Chloride 0.9% 100 ml @ 25 mls/hr IVPB Q8H [facility] Rx#: [id number] Potassium Chloride 10 meq 100 In Water For Injection 1 100ml.bag @ 100 mls/hr IVPB Q1H [facility] Rx#: [id number] Intake, IV Titration 400 Amount Potassium Chloride 10 meq 400 In Water For Injection 1 100ml.bag @ 100 mls/hr IVPB Q1HR [facility] Rx#: [id number] Oral 540 Output: Urine 1185 785 975 Other: Voiding Method Indwelling Catheter Indwelling Catheter Indwelling Catheter - Exam No acute distress, currently on BiPAP. HEENT examination is grossly unremarkable. Neck supple. Full range of motion. No adenopathy thyromegaly or neck vein distention. Cardiovascular examination reveals regular rhythm rate. S1-S2 normal. No S3 or S4. No discernible murmur noted. Heart rate 94 bpm. Heart sounds are distant. Lungs reveal scattered bilateral rhonchi. No wheezes or crackles. Breath sounds equal bilaterally. Saturations are in the mid 90s. Abdomen soft bowel sounds are heard. No masses or tenderness. Extremities are intact. No cyanosis clubbing or edema. Skin is without rash or lesion. Neurologic examination is brief but nonfocal. - Labs CBC & Chem 7: 03/30/22 08:17 03/30/22 08:17 Labs: Abnormal Lab Results - Last 24 Hours (Table) 03/30/22 03/30/22 Range/Units 08:17 08:17 RBC 3.41 L (4.30-5.90) m/uL Hgb 11.5 L (13.0-17.5) gm/dL Hct 34.3 L (39.0-53.0) % MCV 100.7 H (80.0-100.0) fL Plt Count 84 L (150-450) k/uL Lymphocytes # 0.7 L (1.0-4.8) k/uL Glucose 148 H (74-99) mg/dL Calcium 7.3 L (8.4-10.2) mg/dL Microbiology - Last 24 Hours (Table) 03/29/22 03:09 Blood Culture - Preliminary Blood No Growth after 24 hours 03/27/22 07:55 Gram Stain - Final Sputum Sputum Culture - Final 03/23/22 06:08 Blood Culture - Final Blood No Growth after 144 hours Assessment and Plan Assessment: Acute hypoxemic respiratory failure, secondary to suspected aspiration, possible underlying pulmonary edema, as well as pneumonia. Chest pain, acute coronary syndrome, ruled out. Diastolic congestive heart failure. Chronic alcohol abuse. Elevated liver function, secondary to chronic alcohol abuse. Alcoholic liver disease. History of chronic atrial fibrillation. History of pulmonary embolism. Acute kidney injury. Bleeding esophageal varices. History of chronic anxiety and depression. History of hypertension. History of alcoholic seizures. History of TIA. Plan: Plan dated 03/30/2022. The patient remains on Zosyn empirically. Blood cultures are thus far negative. The patient's labs, x-rays, and medications are reviewed. He remains on BiPAP, with settings of 12/6 and 50%. Heart rate is 115. Saturations are 94%. We will continue to follow make recommendations along the way. Prognosis is guarded. Time with Patient: Less than 30
[2022-03-30] MEDS: SODIUM CHLORIDE 0.9% 1,000 ML IV SCH (13:13)
[2022-03-30] MEDS: THIAMINE 100 MG TAB PO SCH (13:13)
--- NOTE | 2022-03-30 14:07 | P.CONS ---
History of Present Illness - Reason for Consult Consult date: 03/30/22 possible varices Requesting physician: Doug Beck - Chief Complaint weakness, shortness of breath - History of Present Illness This is 66-year-old male with multiple comorbidities including alcoholic cirrhosis of the liver. Patient was admitted a week ago with complaints of weakness and shortness of breath. He was treated for pneumonia, within the last couple days patient became increasingly short of breath hypoxic requiring increased from 2-6 L of oxygen. He was subsequently transferred to the ICU. He is now requiring 10 L oxygen, with intermittent BiPAP. Apparently when he patient first came in he was coughing and coughed up a little bit of iveth b lood. Gastroenterology was consulted on 03/25/2022 however there was no gastroenterology coverage that week. Today's the first time seeing patient. He denies any abdominal pain, nausea or vomiting. He denies any hematemesis. He states he has been coughing up sputum, some has been blood-tinged. He has a positive blood culture coagulase-negative staph. Patient's hemoglobin has been stable. Again denies any hematemesis. Excuse me his last EGD was in April [address] Hicks with findings of esophageal varices status post banding. Patient states at some time he did quit drinking however relapsed. His last hospitalization was in February of this year which he had a positive blood al cohol level. He last saw Dr. Sheehan in her office about a year ago otherwise has not been following with anyone. Labs WBC 5.8 hemoglobin 11.5 hematocrit 34 platelet count 84,000 sodium 138 potassium 4.0 BUN 19 creatinine 1.2 glucose 148 Review of Systems REVIEW OF SYSTEMS: CARDIOPULMONARY: No chest pain or shortness of breath. Productive cough, blood- tinged sputum. Gastrointestinal: No abdominal pain. No nausea or vomiting. No hematemesis, coffee-ground emesis. No rectal bleeding, or melena. GENITOURINARY: No dysuria or hematuria. MUSCULOSKELETAL: Reports normal range of motion. SKIN: No rashes. No jaundice. ENDOCRINE: No chills, fevers. No excessive weight gain or loss. No polydipsia or polyuria. PSYCHIATRIC: Unremarkable. NEUROLOGY: No change in mental status. Denies dizziness, headache. ENT: Vision unremarkable. CONSTITUTIONAL: No recent weight loss. No fever, chills, night sweats. Past Medical History Past Medical History: Atrial Fibrillation, Chest Pain / Angina, COPD, CVA/TIA, Diabetes Mellitus, GERD/Reflux, GI Bleed, Hearing Disorder / Deafness, Hyperlipidemia, Hypertension, Liver Disease, Pneumonia, Prostate Disorder, Pulmonary Embolus (PE) Additional Past Medical History / Comment(s): Pt recently hospitalized at [facility] with pneumonia. Other hx: GI bleed/ esophageal varicies banded. Other hx: Alcoholism, alcohol withdrawal DTs and possibly a seizure in 2018 r/t withdrawal, chronic alcoholic cirrhosis with portal hypertension and previous history of upper and lower GI bleeding, esophageal varices, previous history of childhood seizure which he outgrew not taking any antiepileptic medication, pulmonary embolism x 2 R lung, TIA, diverticulosis, chronic lower bilateral extremity ankle edema if he walks a lot, previous history of septicemia, cervical disc disease, chronic neck pain, chronic back pain with r sided sciatica, degenerative arthritis involving the lower back, scoliosis, tinnitus, vitamin D deficiency, iron anemia, chronic thrombocytopenia, denies MRSA, C-DIFF History of Any Multi-Drug Resistant Organisms: MRSA Year Discovered:: 03/17/18 MDRO Source:: stomach Past Surgical History: Appendectomy, Cholecystectomy Additional Past Surgical History / Comment(s): EGDs/esophageal varicies bandings, colonoscopies. Past Anesthesia/Blood Transfusion Reactions: No Reported Reaction Additional Past Anesthesia/Blood Transfusion Reaction / Comm: after appendix rem feroz sob Past Psychological History: Anxiety, Depression Additional Psychological History / Comment(s): Pt resides in a 3/4 house. He uses a cane prn. He gets to [facility] by senior bus or cab or ambulance. Smoking Status: Never smoker Past Alcohol Use History: Heavy Additional Past Alcohol Use History / Comment(s): Pt has hx of alcoholism. He states he is HAS NOT DRANK IN A WEEK. PRIOR TO THAT HE DRANK A COUPLE PINTS OF WHISKEY A DAY. Past Drug Use History: None Reported - Past Family History Mother Family Medical History: COPD, CVA/TIA, Dementia Additional Family Medical History / Comment(s): from a stroke Father Family Medical History: Pneumonia Additional Family Medical History / Comment(s): Father of pneumonia when he was close to 80 yrs old. Medications and Allergies Home Medications Medication Instructions Recorded Confirmed Type Ferrous Sulfate [Iron (65 MG 325 mg PO DAILY #30 tab 06/07/19 03/21/22 Rx Elemental)] Folic Acid 1 mg PO DAILY 01/07/20 03/21/22 History traZODone HCL 50 mg PO HS PRN 01/07/20 03/21/22 History Ergocalciferol [Vitamin D2 (1250 1,250 mcg PO Q30D 10/30/20 03/21/22 History Mcg = 66011 Iu)] Naproxen 500 mg PO BID PRN 10/30/20 03/21/22 History Omeprazole 20 mg PO DAILY 03/02/21 03/21/22 History Magnesium Oxide [Mag-Ox] 400 mg PO BID #60 tab 04/03/21 03/21/22 Rx Thiamine [Vitamin B-1] 100 mg PO W/LUNCH 07/21/21 03/21/22 History Atorvastatin [Lipitor] 40 mg PO DAILY 30 Days #30 tab 07/25/21 03/21/22 Rx Cyclobenzaprine [Flexeril] 10 mg PO TID PRN #30 tab 07/25/21 03/21/22 Rx Sucralfate [Carafate] 1 gm PO AC-TID #90 tablet 07/25/21 03/21/22 Rx Metoprolol Succinate (ER) [Toprol 100 mg PO DAILY #30 09/26/21 03/21/22 Rx XL] Ipratropium-Albuterol Nebulize 3 ml INHALATION RT-QID PRN 01/16/22 03/21/22 History [Duoneb 0.5 mg-3 mg/3 ml Soln] Losartan Potassium 100 mg PO DAILY 01/16/22 03/21/22 History Potassium Chloride ER [K-Dur 20] 20 meq PO BID 01/16/22 03/21/22 History Tamsulosin HCl [Flomax] 0.4 mg PO DAILY 01/16/22 03/21/22 History cloNIDine HCL [Catapres] 0.3 mg PO TID PRN 01/16/22 03/21/22 History Albuterol Inhaler [Ventolin Hfa 2 puff INHALATION RT-QID 5 Days #8 01/21/22 03/21/22 Rx Inhaler] gm Budesonide [Pulmicort] 0.5 mg INHALATION BID 5 Days #60 ml 01/21/22 03/21/22 Rx Rivaroxaban [Xarelto] 20 mg PO DAILY 30 Days #30 tab 01/21/22 03/21/22 Rx amLODIPine [Norvasc] 10 mg PO DAILY #30 tab 01/21/22 03/21/22 Rx Allergies Allergy/AdvReac Type Severity Reaction Status Date / Time adhesive tape Allergy Rash/Hives Verified 03/21/22 15:27 latex Allergy Rash/Hives Verified 03/21/22 15:27 lisinopril Allergy Eyes Verified 03/21/22 15:27 burn/Itching/Weakness egg AdvReac Nausea & Verified 03/21/22 15:27 Vomiting tomato AdvReac Nausea & Verified 03/21/22 15:27 Vomiting & Diarrhea Physical Exam Vitals: Vital Signs Temp Pulse Resp BP Pulse Ox FiO2 03/30/22 09:00 101.2 F H 112 H 25 H 108/65 95 50 03/30/22 08:02 115 H 03/30/22 08:00 115 H 27 H 128/63 93 L 50 03/30/22 07:23 50 03/30/22 07:22 111 H 03/30/22 07:00 117 H 22 115/68 93 L 03/30/22 06:00 111 H 28 H 113/68 93 L 03/30/22 05:00 110 H 21 109/63 94 L 03/30/22 04:00 99.2 F 105 H 25 H 121/71 94 L 50 03/30/22 03:24 104 H 03/30/22 03:15 104 H 03/30/22 03:00 110 H 31 H 136/81 89 L 50 03/30/22 02:00 105 H 22 103/87 95 03/30/22 01:23 90 L 03/30/22 01:00 98 24 121/73 92 L 03/30/22 00:00 98.9 F 99 13 108/70 94 L 50 03/29/22 23:20 50 03/29/22 23:11 92 22 108/70 92 L 03/29/22 23:00 92 24 108/65 93 L 03/29/22 22:00 96 18 90/56 89 L 03/29/22 21:00 100 17 97/57 91 L 03/29/22 20:59 96 03/29/22 20:41 96 03/29/22 20:00 100 20 99/58 91 L 03/29/22 19:32 90 L 03/29/22 19:00 98.2 F 98 21 130/81 89 L 03/29/22 18:00 100 19 127/72 85 L 03/29/22 17:00 105 H 30 H 120/78 84 L 03/29/22 16:00 101.0 F H 95 24 123/73 92 L 50 03/29/22 15:11 100 03/29/22 15:01 98 50 03/29/22 15:00 96 23 120/68 91 L 03/29/22 14:00 103 H 20 126/69 91 L 03/29/22 13:00 111 H 27 H 115/75 86 L 03/29/22 12:00 98.5 F 101 H 28 H 114/69 89 L 6 03/29/22 11:19 90 03/29/22 11:09 92 03/29/22 11:00 90 26 H 112/68 88 L Intake and Output 03/29/22 03/30/22 03/30/22 22:59 06:59 14:59 Intake Total 340 820 60 Output Total 550 540 775 Balance -210 280 -715 Intake: IV 340 280 60 0.9 140 180 60 Piperacillin-Tazobactam 3 100 100 .375 gm In Sodium Chloride 0.9% 100 ml @ 25 mls/hr IVPB Q8H TANYA Rx#: [id number] Potassium Chloride 10 meq 100 In Water For Injection 1 100ml.bag @ 100 mls/hr IVPB Q1H TANYA Rx#: [id number] Oral 540 Output: Urine 550 540 775 Other: Voiding Method Indwelling Catheter Indwelling Catheter Indwelling Catheter Weight 90.3 kg General appearance: The patient is alert, oriented, appears in no acute distress. HET: Head is normocephalic and atraumatic. Conjunctiva pink. Sclera anicteric. Neck: Supple without lymphadenopathy. Trachea midline. Heart: S1 S2. Regular rate and rhythm. Lungs: Equal expansion, bilateral rhonchi. Abdomen: Soft, nontender, nondistended with bowel sounds. No guarding or rigidity. Skin: No rashes. No jaundice. Extremities: Normal skin color and turgor. No pedal edema. Neurological: No focal deficits. Alert and oriented x3. Results CBC & Chem 7: 11/14/22 08:17 03/30/22 08:17 Labs: Abnormal Lab Results - Last 24 Hours (Table) 03/30/22 03/30/22 Range/Units 08:17 08:17 RBC 3.41 L (4.30-5.90) m/uL Hgb 11.5 L (13.0-17.5) gm/dL Hct 34.3 L (39.0-53.0) % MCV 100.7 H (80.0-100.0) fL Plt Count 84 L (150-450) k/uL Lymphocytes # 0.7 L (1.0-4.8) k/uL Glucose 148 H (74-99) mg/dL Calcium 7.3 L (8.4-10.2) mg/dL Microbiology - Last 24 Hours (Table) 03/29/22 03:09 Blood Culture - Preliminary Blood No Growth after 24 hours 03/27/22 07:55 Gram Stain - Final Sputum Sputum Culture - Final 03/23/22 06:08 Blood Culture - Final Blood No Growth after 144 hours Assessment and Plan (1) Alcoholic cirrhosis of liver Narrative/Plan: 66-year-old male with multiple comorbidities including a history of alcoholic cirrhosis of liver who continues to drink regularly. Patient states he quit drinking about one month ago. Patient was admitted for shortness of breath and weakness. During his hospitalization he had some coughing and sputum with some iveth blood. Gastroenterology was consulted for his history of esophageal varices. Patient denies any abdominal pain, nausea vomiting. Hemoglobin has been stable. He is not having any hematemesis. He continues to have occasional iveth blood in his sputum. He is admitted with pneumonia, was transferred to the ICU for acute respiratory failure. There is no indication at this time for any endoscopic evaluation. Patient is not having any signs or symptoms of upper GI bleed. Denies any blood or black stool. Current Visit: No Status: Acute Code(s): K70.30 - ALCOHOLIC CIRRHOSIS OF LIVER WITHOUT ASCITES SNOMED Code(s): 897447795 (2) Acute respiratory failure with hypoxia Current Visit: Yes Status: Acute Code(s): J96.01 - ACUTE RESPIRATORY FAILURE WITH HYPOXIA SNOMED Code(s): 04654636 (3) Positive blood cultures Current Visit: Yes Status: Acute Code(s): R78.81 - BACTEREMIA SNOMED Code(s): 561985002 (4) Pneumonia Current Visit: No Status: Acute Code(s): J18.9 - PNEUMONIA, UNSPECIFIED ORGANISM SNOMED Code(s): 469925057 Plan: 1. Continue ICU management 2. Continue symptomatic supportive care 3. Diet as tolerated 4. No plan for an endoscopic evaluation 5. Protonix 40 mg daily, GI prophylaxis Thank you for this consultation, we will continue to follow Dr. Chase Sheehan I agree with the dictator's note, documented as a scribe by Keiry Bejarano.
[2022-03-30] MEDS: BUDESONIDE 1 MG/2 ML NEBU INHALATION SCH (19:45)
--- NOTE | 2022-03-30 22:01 | PN ---
PROGRESS NOTE DATE OF SERVICE: 03/30/2022 CHIEF COMPLAINT: Pneumonitis. HISTORY OF PRESENT ILLNESS: This gentleman is feeling better. He is not having any further chest discomfort, and he is not short of breath. Temperature is down. OBJECTIVE: VITAL SIGNS: Normal. CHEST: Clear to auscultation. CARDIAC: Normal. ABDOMEN: Soft and slightly protuberant. IMPRESSION: 1. Pneumonitis. 2. Alcoholism. 3. Uncontrolled hypertension. 4. Cirrhosis. PLAN: Continue with ICU management with antibiotics and updrafts until he is sent back to regular floor. MMODL / IJN: [id number] /
--- NOTE | 2022-03-30 22:04 | PN ---
PROGRESS NOTE DATE OF SERVICE: 03/29/2022 CHIEF COMPLAINT: Pneumonitis. HISTORY OF PRESENT ILLNESS: This gentleman is doing much better. He is feeling much better. He is less short of breath. Vital signs are now normal. PHYSICAL EXAMINATION: LUNGS: Breath sounds are fairly clear throughout with occasional scattered rales. CARDIAC: Normal. ABDOMEN: Soft, nontender. IMPRESSION: 1. Pneumonitis. 2. History of alcoholism. 3. Cirrhosis. PLAN: Progress activity and diet and continue to follow as long as he is in the ICU. MMODL / IJN: [id number] /
--- NOTE | 2022-03-30 22:26 | PN ---
PROGRESS NOTE DATE OF SERVICE: 03/28/2022 CHIEF COMPLAINT: Shortness of breath and hypoxia. HISTORY OF PRESENT ILLNESS: This gentleman's pulse ox dropped as did his blood pressure. He was evaluated and sent to Intensive care unit. His D-dimer was normal. BNP was elevated. He denies any chest pain. PHYSICAL EXAMINATION: GENERAL: He is awake and alert. VITAL SIGNS: Normal. LUNGS: He has decreased breath sounds throughout with scattered rales and rhonchi. CARDIAC: Normal. ABDOMEN: Soft and nontender. IMPRESSION: 1. Sudden drop in oxygen tension and blood pressure with history of hemoptysis. Plan, rule out pulmonary embolism. 2. Rule out sepsis. 3. Rule out congestive heart failure. 4. Rule out pneumonitis. MMODL / RENAEN: [id number] /
[2022-03-31] MEDS: ACETAMINOPHEN TAB 325 MG TAB PO PRN ×2 (00:35→07:14)
[2022-03-31] MEDS: hydrALAZINE HCL 50 MG TAB PO SCH ×3 (05:23→16:47)
[2022-03-31] MEDS: PIPERACILLIN-TAZOBACTAM 3.375 GM in SODIUM CHLORIDE 0.9% 100 ML IVPB SCH ×3 (05:26→21:56)
[2022-03-31] MEDS: IPRATROPIUM-ALBUTEROL 3 ML NEB INHALATION PRN ×2 (05:46→11:38)
[2022-03-31] MEDS: BUDESONIDE 1 MG/2 ML NEBU INHALATION SCH (05:51)
[2022-03-31 06:05] LABS: Basophils % (A) 0 %; Eosinophils # (A) 0.1 k/uL (0-0.7); Eosinophils % (A) 2 %; HGB 11.9 gm/dL (13.0-17.5); Lymphocytes % (A) 15 %; MCH 34.1 pg (25.0-35.0); MCHC 33.9 g/dL (31.0-37.0); MCV 100.6 fL (80.0-100.0); Macrocytosis Slight; Mean Platelet Volume 11.5; Monocytes # (A) 0.3 k/uL (0-1.0); Monocytes % (A) 5 %; Neutrophils # (A) 5.1 k/uL (1.3-7.7); Neutrophils % (A) 77 %; RBC 3.48 m/uL (4.30-5.90); RDW 14.6 % (11.5-15.5); WBC 6.6 k/uL (3.8-10.6)
[2022-03-31 06:13] LABS: Platelet Count 88 k/uL (150-450)
[2022-03-31 06:43] LABS: Calcium 7.8 mg/dL (8.4-10.2); Potassium 4.1 mmol/L (3.5-5.1)
--- NOTE | 2022-03-31 08:45 | XR ---
EXAMINATION TYPE: XR chest 1V portable DATE OF EXAM: 03/31/2022 COMPARISON: 03/29/2010 HISTORY: Shortness of breath TECHNIQUE: Single frontal view of the chest is obtained. FINDINGS: Bilateral arthropathy of the shoulders and hypertrophic and degenerative changes of the sp ine. These interstitial focal areas of alveolar infiltrate stable. No pleural effusion or pneumothora x. IMPRESSION: Stable mixed interstitial and alveolar infiltrates.
[2022-03-31] MEDS: polyethylene glycoL 3350 17 GM POWD.PACK PO SCH (08:51)
[2022-03-31] MEDS: amLODIPine 10 MG TAB PO SCH (09:10)
[2022-03-31] MEDS: SUCRALFATE 1 GM TAB PO SCH ×3 (09:10→16:47)
[2022-03-31] MEDS: LORATADINE-PSEUDOEPH 5-120 MG 1 EACH TAB.ER.12H PO SCH (09:10)
[2022-03-31] MEDS: FUROSEMIDE 10 MG/ML 4 ML VIAL IV SCH (09:10)
[2022-03-31] MEDS: ATORVASTATIN 40 MG TAB PO SCH (09:10)
[2022-03-31] MEDS: POTASSIUM CHLORIDE ER 20 MEQ TAB.ER PO SCH ×2 (09:11→21:32)
[2022-03-31] MEDS: LOSARTAN 50 MG TAB PO SCH (09:11)
[2022-03-31] MEDS: RIVAROXABAN 20 MG TAB PO SCH (09:11)
[2022-03-31] MEDS: MAGNESIUM OXIDE 400 MG TAB PO SCH ×2 (09:11→21:32)
[2022-03-31] MEDS: TAMSULOSIN 0.4 MG CAP.ER.24H PO SCH (09:11)
[2022-03-31] MEDS: METOPROLOL SUCCINATE (ER) 100 MG TAB.ER.24H PO SCH (09:11)
[2022-03-31] MEDS: PANTOPRAZOLE 40 MG/10 ML VIAL IVP SCH ×2 (09:11→21:56)
[2022-03-31] MEDS: bisacodyL 5 MG TABLET.DR PO PRN (09:12)
--- NOTE | 2022-03-31 10:27 | P.PN ---
Subjective Progress Note Date: 03/31/22 Principal diagnosis: Shortness of breath. This is a pleasant 66-year-old male patient with a known history of alcoholism, atrial fibrillation, anticoagulated with Xarelto, nonsmoker, chronic liver disease, pancytopenia, previous alcohol withdrawal seizures, portal hypertension, esophageal variceal bleeding, diabetes mellitus, hyperlipidemia, hypertension. He was admitted here back on 03/21/2022 for shortness of breath and cough and congestion. If he was admitted to the regular medical floor and being followed by medicine and infectious disease. He had one blood culture positive for coag-negative staph. Today the patient developed significant shortness of breath, hypoxemia and went from 2 L up to 6 L high flow nasal cannula with O2 saturation still in the 80s. We're consulted for the same. He is seen in his room urgently. He is quite dyspneic. His O2 saturations 82% on 6 L nasal cannula. He is given Lasix 40 mg IVP 1. Ativan 1 mg IV. Chest x- ray reveals significant bilateral multifocal infiltrates/edema. He was placed on BiPAP 16/6 and 50% FiO2 and to be admitted to the intensive care unit. White count 5.8. Hemoglobin 13.0. D-dimer 0.44. The patient is anticoagulated with Xarelto. He's been on DuoNeb inhalations and Pulmicort inhalations. Patient was reevaluated today on 03/28/22, patient was seen yesterday and was transferred to the ICU. He is now in the ICU, he is receiving Lasix is also receiving antibiotics in the form of Zosyn. Patient is feeling much better, overnight he was on BiPAP 12/6/50%, presently on 5 L nasal cannula. His IV fluids at KVO, patient had good urine output overnight, and a chest x-ray is showing definite improvement nonetheless he continues to have interstitial infiltrates/edema bilaterally. But after improvement compared to the chest x- ray yesterday. And the patient had significant clinical improvement today compared to yesterday.WBC count today is 7.1 hemoglobin is 12.7 a left was are normal renal profile showed a BUN of 18 creatinine of 1.17.pro-calcitonin level is pending Patient was reevaluated today on 03/29/22, patient remains in the ICU, remains on 6 L high flow nasal cannula, O2 saturation is marginal between 88 and 91%. Clinically the patient is feeling better, breathing easier, he had few episodes of blood-tinged sputum. Patient is on Zosyn, chest x-ray continues to show bila teral interstitial infiltrates/edema. Not much of a change in the chest x-ray in the last 2 days. Pro-calcitonin level came back elevated at 0.55 his WBC count is 6.3 hemoglobin is 12.1, electrolytes are normal BUN is 22 creatinine is up to 1.3 to hence I cut down his dose of diuretics to once daily instead of twice daily. Patient remains on Xarelto. Progress note dated 03/30/2022. The patient was admitted back on March 21. The patient came in with heart failure, diastolic in nature, questionable aspiration pneumonia. He came to the intensive care unit, on March 27. He is a 66-year-old male seen today in room 253. He remains on BiPAP, with settings of 12/6 and 50%. His blood c ultures are showing coag-negative staph. He is on Zosyn. His heart rate is 115. His saturations are 94%. White count 5.8, hemoglobin 11.5, hematocrit 34.3, and platelet count 84,000. Sodium 138, potassium 4, chlorides 106, CO2 26, BUN 19, and creatinine 1.23. No chest x-ray was done today. Progress note dated 03/31/2022. The patient is again seen today in room 253. He is currently on BiPAP, with settings of 12/6 and 50%. He's getting saline at keep vein open. He is on Zosyn empirically. Microbiologic studies have been negative thus far. The patient had an uneventful night according to the nurses. White count is 6.6, hemoglobin 11.9, hematocrit 35, platelet count 88,000. Sodium 142, potassium 4.1, chlorides 110, CO2 26, anion gap 6, BUN 21, and creatinine 1.19. A chest x-ray shows a pattern of mixed interstitial and alveolar infiltrates. No pneumothorax is seen. Objective - Vital Signs Vital signs: Vital Signs Temp 101.9 F H 03/31/22 08:03 Pulse 103 H 03/31/22 10:00 Resp 23 03/31/22 10:00 BP 99/63 03/31/22 10:00 Pulse Ox 88 L 03/31/22 10:00 FiO2 50 03/31/22 07:00 Intake & Output 03/30/22 03/31/22 03/31/22 18:59 06:59 18:59 Intake Total 240 240 60 Output Total 1535 735 170 Balance -1295 -495 -110 Weight 90.3 kg 89 kg Intake: IV 240 240 60 0.9 240 240 60 Output: Urine 1535 735 170 Other: Voiding Method Indwelling Catheter Indwelling Catheter Indwelling Catheter - Exam No acute distress, currently on BiPAP. HEENT examination is grossly unremarkable. Neck supple. Full range of motion. No adenopathy thyromegaly or neck vein distention. Cardiovascular examination reveals regular rhythm rate. S1-S2 normal. No S3 or S4. No discernible murmur noted. Heart rate 103 bpm. Heart sounds are distant. Lungs reveal scattered bilateral rhonchi. No wheezes or crackles. Breath sounds equal bilaterally. Saturations are in the low 90s. Abdomen soft bowel sounds are heard. No masses or tenderness. Extremities are intact. No cyanosis clubbing or edema. Skin is without rash or lesion. Neurologic examination is brief but nonfocal. - Labs CBC & Chem 7: 03/31/22 05:30 03/31/22 05:30 Labs: Abnormal Lab Results - Last 24 Hours (Table) 03/31/22 03/31/22 Range/Units 05:30 05:30 RBC 3.48 L (4.30-5.90) m/uL Hgb 11.9 L (13.0-17.5) gm/dL Hct 35.0 L (39.0-53.0) % MCV 100.6 H (80.0-100.0) fL Plt Count 88 L (150-450) k/uL Chloride 110 H (98-107) mmol/L BUN 21 H (9-20) mg/dL Glucose 153 H (74-99) mg/dL Calcium 7.8 L (8.4-10.2) mg/dL Microbiology - Last 24 Hours (Table) 03/29/22 03:09 Blood Culture - Preliminary Blood No Growth after 48 hours Assessment and Plan Assessment: Acute hypoxemic respiratory failure, secondary to suspected aspiration, possible underlying pulmonary edema, as well as pneumonia. Chest pain, acute coronary syndrome, ruled out. Diastolic congestive heart failure. Chronic alcohol abuse. Elevated liver function, secondary to chronic alcohol abuse. Alcoholic liver disease. History of chronic atrial fibrillation. History of pulmonary embolism. Acute kidney injury. Bleeding esophageal varices. History of chronic anxiety and depression. History of hypertension. History of alcoholic seizures. History of TIA. Plan: Plan dated 03/30/2022. The patient remains on Zosyn empirically. Blood cultures are thus far negative. The patient's labs, x-rays, and medications are reviewed. He remains on BiPAP, with settings of 12/6 and 50%. Heart rate is 115. Saturations are 94%. We will continue to follow make recommendations along the way. Prognosis is guarded. Plan dated 03/31/2022. The patient remains on Zosyn empirically. Blood cultures and other cultures are currently negative. The patient spends most of the time on BiPAP, but sometimes on high flow oxygen therapy. Labs, x-rays, and medications are reviewed. We will continue to follow. The patient had an uneventful night according to the nurse last night. Prognosis is guarded. Time with Patient: Less than 30
[2022-03-31] MEDS: SODIUM CHLORIDE 0.9% 1,000 ML IV SCH (10:32)
--- NOTE | 2022-03-31 11:26 | P.PN ---
Subjective Progress Note Date: 03/31/22 Principal diagnosis: Possible varices This is 66-year-old male with multiple comorbidities including alcoholic cirrhosis of the liver. Patient was admitted a week ago with complaints of weakness and shortness of breath. He was treated for pneumonia, within the last couple days patient became increasingly short of breath hypoxic requiring increased from 2-6 L of oxygen. He was subsequently transferred to the ICU. He is now requiring 10 L oxygen, with intermittent BiPAP. Apparently when he patient first came in he was coughing and coughed up a little bit of iveth blood. Gastroenterology was consulted on 03/25/2022 however there was no gastroenterology coverage that week. Today's the first time seeing patient. He denies any abdominal pain, nausea or vomiting. He denies any hematemesis. He states he has been coughing up sputum, some has been blood-tinged. He has a positive blood culture coagulase-negative staph. Patient's hemoglobin has been stable. Again denies any hematemesis. Excuse me his last EGD was in April [address] Hicks with findings of esophageal varices status post banding. Patient states at some time he did quit drinking however relapsed. His last hospitalization was in February of this year which he had a positive blood alcohol level. He last saw Dr. Sheehan in her office about a year ago otherwise has not been following with anyone. 03/31/2022. Patient seen and examined today as a follow-up. He remains in the ICU. He continues to deny any hematemesis, abdominal pain, nausea or vomiting. He denies any black stool or blood in his stool. Hemoglobin is stable at 11.9. Chest x-ray shows pattern of mixed interstitial and aVL or infiltrates. Objective - Vital Signs Vital signs: Vital Signs Temp 101.3 F H 03/31/22 07:00 Pulse 118 H 03/31/22 07:00 Resp 35 H 03/31/22 07:00 BP 159/86 03/31/22 06:00 Pulse Ox 97 03/31/22 07:00 FiO2 50 03/31/22 07:00 Intake & Output 03/30/22 03/31/22 03/31/22 18:59 06:59 18:59 Intake Total 240 240 Output Total 8901 735 Balance -1295 -495 Weight 90.3 kg 89 kg Intake: IV 240 240 0.9 240 240 Output: Urine 1535 735 Other: Voiding Method Indwelling Catheter Indwelling Catheter - Exam General appearance: The patient is alert, oriented, appears in no acute distress. HET: Head is normocephalic and atraumatic. Conjunctiva pink. Sclera anicteric. Neck: Supple without lymphadenopathy. Abdomen: Soft, nontender, nondistended with bowel sounds. No guarding or rigidity. Extremities: Normal skin color and turgor. No pedal edema Skin: No rashes, no jaundice Neurological: No focal deficits. Alert and oriented. - Labs CBC & Chem 7: 03/31/22 05:30 03/31/22 05:30 Labs: Abnormal Lab Results - Last 24 Hours (Table) 03/31/22 03/31/22 Range/Units 05:30 05:30 RBC 3.48 L (4.30-5.90) m/uL Hgb 11.9 L (13.0-17.5) gm/dL Hct 35.0 L (39.0-53.0) % MCV 100.6 H (80.0-100.0) fL Plt Count 88 L (150-450) k/uL Chloride 110 H (98-107) mmol/L BUN 21 H (9-20) mg/dL Glucose 153 H (74-99) mg/dL Calcium 7.8 L (8.4-10.2) mg/dL Microbiology - Last 24 Hours (Table) 03/29/22 03:09 Blood Culture - Preliminary Blood No Growth after 48 hours Assessment and Plan (1) Alcoholic cirrhosis of liver Narrative/Plan: 66-year-old male with multiple comorbidities including a history of alcoholic cirrhosis of liver who continues to drink regularly. Patient states he quit drinking about one month ago. Patient was admitted for shortness of breath and weakness. During his hospitalization he had some coughing and sputum with some iveth blood. Gastroenterology was consulted for his history of esophageal varices. Patient denies any abdominal pain, nausea vomiting. Hemoglobin has been stable. He is not having any hematemesis. He continues to have occasional iveth blood in his sputum. He is admitted with pneumonia, was transferred to the ICU for acute respiratory failure. There is no indication at this time for any endoscopic evaluation. Patient is not having any signs or symptoms of upper GI bleed. Denies any blood or black stool. Current Visit: No Status: Acute Code(s): K70.30 - ALCOHOLIC CIRRHOSIS OF LI RUDY WITHOUT ASCITES SNOMED Code(s): 580869811 (2) Acute respiratory failure with hypoxia Current Visit: Yes Status: Acute Code(s): J96.01 - ACUTE RESPIRATORY FAILURE WITH HYPOXIA SNOMED Code(s): 73034527 (3) Positive blood cultures Current Visit: Yes Status: Acute Code(s): R78.81 - BACTEREMIA SNOMED Code(s): 250199081 (4) Pneumonia Current Visit: No Status: Acute Code(s): J18.9 - PNEUMONIA, UNSPECIFIED ORGANISM SNOMED Code(s): 429494783 Plan: 1. Continue ICU management 2. Continue symptomatic supportive care 3. Diet as tolerated 4. No plan for an endoscopic evaluation 5. Protonix 40 mg daily, GI prophylaxis Thank you for this consultation, we will continue to follow Dr. Chase Sheehan I agree with the dictator's note, documented as a scribe by Keiry Bejarano.
[2022-03-31] MEDS: THIAMINE 100 MG TAB PO SCH (11:42)
[2022-03-31] MEDS: ALBUTEROL HFA INHALER INHALATION PRN ×2 (16:00→20:40)
[2022-03-31] MEDS: ONDANSETRON 4 MG/2 ML VIAL IVP PRN ×2 (16:47→22:00)
[2022-03-31] MEDS: LORazepam 1 MG/0.5 ML VIAL IV PRN (17:45)
[2022-03-31] MEDS: FLUTICASONE 220 MCG INHALER INHALATION SCH (20:40)
--- NOTE | 2022-03-31 23:33 | P.PN ---
Subjective Progress Note Date: 03/30/22 Principal diagnosis: Bacteremia Patient is a 66-year-old male with multiple comorbidities present to the ER for evaluation of chest pain or shortness of breath patient did not have any fever and the patient did have a normal white count blood cultures came back positive for gram-positive cocci that prompted this infectious disease consultation. On today's evaluation that is 03/30/2022 patient did did spike a fever of 101F, the patient is requiring BiPAP for respiratory support , patient denies having any chest pain, the patient did have a cough with occasional sputum denies any nausea no vomiting and no diarrhea Objective - Vital Signs Vital signs: Vital Signs Temp 98.4 F 03/30/22 13:00 Pulse 98 03/30/22 13:00 Resp 15 03/30/22 13:00 BP 88/57 03/30/22 13:00 Pulse Ox 92 L 03/30/22 13:00 FiO2 10 03/30/22 13:00 Intake & Output 03/29/22 03/30/22 03/30/22 18:59 06:59 18:59 Intake Total 740 1080 120 Output Total 8532 170 0542 Balance -445 295 -955 Weight 90.3 kg 90.3 kg Intake: IV 340 540 120 0.9 240 240 120 Piperacillin-Tazobactam 3 100 200 .375 gm In Sodium Chloride 0.9% 100 ml @ 25 mls/hr IVPB Q8H [facility] Rx#: [id number] Potassium Chloride 10 meq 100 In Water For Injection 1 100ml.bag @ 100 mls/hr IVPB Q1H [facility] Rx#: [id number] Intake, IV Titration 400 Amount Potassium Chloride 10 meq 400 In Water For Injection 1 100ml.bag @ 100 mls/hr IVPB Q1HR [facility] Rx#: [id number] Oral 540 Output: Urine 8060 945 1206 Other: Voiding Method Indwelling Catheter Indwelling Catheter Indwelling Catheter - Exam GENERAL DESCRIPTION: An elderly male lying in bed in no distress RESPIRATORY SYSTEM: Unlabored breathing , decreased breath sounds at bases HEART: S1 S2 regular rate and rhythm , ABDOMEN: Soft , no tenderness EXTREMITIES: No edema feet - Labs CBC & Chem 7: 03/31/22 05:30 03/31/22 05:30 Labs: Abnormal Lab Results - Last 24 Hours (Table) 03/30/22 03/30/22 Range/Units 08:17 08:17 RBC 3.41 L (4.30-5.90) m/uL Hgb 11.5 L (13.0-17.5) gm/dL Hct 34.3 L (39.0-53.0) % MCV 100.7 H (80.0-100.0) fL Plt Count 84 L (150-450) k/uL Lymphocytes # 0.7 L (1.0-4.8) k/uL Glucose 148 H (74-99) mg/dL Calcium 7.3 L (8.4-10.2) mg/dL Microbiology - Last 24 Hours (Table) 03/29/22 03:09 Blood Culture - Preliminary Blood No Growth after 24 hours 03/27/22 07:55 Gram Stain - Final Sputum Sputum Culture - Final Assessment and Plan (1) Positive blood cultures Current Visit: Yes Status: Acute Code(s): R78.81 - BACTEREMIA SNOMED Code(s): 196913386 Plan: 1patient with gram-positive bacteremia in this patient predominantly with the r espiratory symptoms however chest x-ray was negative for any consolidation patient not running any fever White count is normal concern for possible skin contamination rather than true infection. 2blood cultures has been repeated which are so far negative 3the patient blood culture has been finalized as coagulase-negative staph more likely skin contamination , patient will be monitored closely off antibiotic 4patient did have a worsening of his respiratory status with right-sided infiltrate concern for possible nosocomial/aspiration pneumonia, Sputum has been obtained which are currently pending, patient did have repeat blood culture as well as covid 19 testing which is currently pending, patient to continue Zosyn and monitor clinical course closely Time with Patient: Less than 30
--- NOTE | 2022-03-31 23:36 | P.PN ---
Subjective Progress Note Date: 03/31/22 Principal diagnosis: Bacteremia Patient is a 66-year-old male with multiple comorbidities present to the ER for evaluation of chest pain or shortness of breath patient did not have any fever and the patient did have a normal white count blood cultures came back positive for gram-positive cocci that prompted this infectious disease consultation. On today's evaluation that is 03/31/2022 patient has been spiking fever with a temperature of 101F, the patient is requiring BiPAP for respiratory support with FiO2 of 50% , patient denies having any chest pain, the patient did have a cough with occasional sputum denies any nausea no vomiting and no diarrhea Objective - Vital Signs Vital signs: Vital Signs Temp 98.7 F 03/31/22 16:00 Pulse 111 H 03/31/22 19:00 Resp 28 H 03/31/22 19:00 BP 148/95 03/31/22 19:00 Pulse Ox 91 L 03/31/22 19:00 FiO2 50 03/31/22 20:41 Intake & Output 03/31/22 03/31/22 04/01/22 06:59 18:59 06:59 Intake Total 240 320 20 Output Total 735 1220 100 Balance -495 -900 -80 Weight 89 kg Intake: IV 240 320 20 0.9 240 220 20 Piperacillin-Tazobactam 3 100 .375 gm In Sodium Chloride 0.9% 100 ml @ 25 mls/hr IVPB Q8H [facility] Rx#: [id number] Output: Urine 735 1220 100 Other: Voiding Method Indwelling Catheter Indwelling Catheter - Exam GENERAL DESCRIPTION: An elderly male lying in bed in no distress RESPIRATORY SYSTEM: Unlabored breathing , decreased breath sounds at bases HEART: S1 S2 regular rate and rhythm , ABDOMEN: Soft , no tenderness EXTREMITIES: No edema feet - Labs CBC & Chem 7: 03/31/22 05:30 03/31/22 05:30 Labs: Abnormal Lab Results - Last 24 Hours (Table) 03/29/22 03/31/22 03/31/22 Range/Units 05:00 05:30 05:30 RBC 3.48 L (4.30-5.90) m/uL Hgb 11.9 L (13.0-17.5) gm/dL Hct 35.0 L (39.0-53.0) % MCV 100.6 H (80.0-100.0) fL Plt Count 88 L (150-450) k/uL Chloride 110 H (98-107) mmol/L BUN 21 H (9-20) mg/dL Glucose 153 H (74-99) mg/dL Calcium 7.8 L (8.4-10.2) mg/dL Coronavirus (PCR) Detected A (Not Detected) Microbiology - Last 24 Hours (Table) 03/29/22 03:09 Blood Culture - Preliminary Blood No Growth after 48 hours Assessment and Plan (1) Positive blood cultures Current Visit: Yes Status: Acute Code(s): R78.81 - BACTEREMIA SNOMED Code(s): 956698780 Plan: 1patient with gram-positive bacteremia in this patient predominantly with the respiratory symptoms however chest x-ray was negative for any consolidation patient not running any fever White count is normal concern for possible skin contamination rather than true infection. 2blood cultures has been repeated which are so far negative 3the patient blood culture has been finalized as coagulase-negative staph more likely skin contamination , patient will be monitored closely off antibiotic 4patient did have a worsening of his respiratory status with right-sided infiltrate concern for possible nosocomial/aspiration pneumonia, however the patient Covid19 PCR came back positive and may be responsible for his persistent fever, patient currently on Xeralto we will add dexamethasone zinc and ascorbic acid, we will repeat his inflammation markers and d-dimer with a.m. lab and continue supportive care Time with Patient: Less than 30
[2022-04-01] MEDS: hydrALAZINE HCL 50 MG TAB PO SCH ×4 (00:45→22:08)
[2022-04-01] MEDS: DEXAMETHASONE SOD PHOSPHATE 10 MG/ML 1 ML VIAL IV SCH ×2 (00:45→08:34)
[2022-04-01] MEDS: LORazepam 1 MG/0.5 ML VIAL IV PRN (01:47)
[2022-04-01] MEDS: PIPERACILLIN-TAZOBACTAM 3.375 GM in SODIUM CHLORIDE 0.9% 100 ML IVPB SCH ×3 (04:16→20:33)
--- NOTE | 2022-04-01 07:19 | XR ---
EXAMINATION TYPE: XR chest 1V portable DATE OF EXAM: 04/01/2022 5:57 AM COMPARISON: Chest radiograph from one day prior. TECHNIQUE: XR chest 1V portable Portable AP radiograph of the chest. CLINICAL INDICATION:Male, 66 years old with history of pna; FINDINGS: Lungs/Pleura: Similar multifocal airspace opacities. No evidence of pneumothorax or pleural effusion. Pulmonary vascularity: Unremarkable. Heart/mediastinum: Cardiomediastinal silhouette is enlarged and stable. Musculoskeletal: No acute osseous pathology. IMPRESSION: Similar multifocal airspace opacities.
[2022-04-01 07:31] LABS: HCT 37.4 % (39.0-53.0); HGB 12.2 gm/dL (13.0-17.5); MCH 32.8 pg (25.0-35.0); MCHC 32.6 g/dL (31.0-37.0); MCV 100.6 fL (80.0-100.0); Macrocytosis Slight; Mean Platelet Volume 11.5; Platelet Count 102 k/uL (150-450); RBC 3.72 m/uL (4.30-5.90); RDW 14.7 % (11.5-15.5); WBC 7.9 k/uL (3.8-10.6)
[2022-04-01] MEDS: FLUTICASONE 220 MCG INHALER INHALATION SCH ×2 (07:39→19:00)
[2022-04-01] MEDS: ALBUTEROL HFA INHALER INHALATION PRN ×2 (07:40→10:52)
[2022-04-01 07:57] LABS: Albumin 2.9 g/dL (3.5-5.0); Calcium 7.6 mg/dL (8.4-10.2); Potassium 4.1 mmol/L (3.5-5.1); Total Bilirubin 1.7 mg/dL (0.2-1.3); Total Protein 6.1 g/dL (6.3-8.2)
[2022-04-01] MEDS: ATORVASTATIN 40 MG TAB PO SCH (08:33)
[2022-04-01] MEDS: MAGNESIUM OXIDE 400 MG TAB PO SCH ×2 (08:33→20:33)
[2022-04-01] MEDS: LOSARTAN 50 MG TAB PO SCH (08:33)
[2022-04-01] MEDS: TAMSULOSIN 0.4 MG CAP.ER.24H PO SCH (08:33)
[2022-04-01] MEDS: PANTOPRAZOLE 40 MG/10 ML VIAL IVP SCH ×2 (08:34→20:33)
[2022-04-01] MEDS: SUCRALFATE 1 GM TAB PO SCH ×3 (08:34→16:32)
[2022-04-01] MEDS: amLODIPine 10 MG TAB PO SCH (08:34)
[2022-04-01] MEDS: POTASSIUM CHLORIDE ER 20 MEQ TAB.ER PO SCH ×2 (08:34→20:33)
[2022-04-01] MEDS: FUROSEMIDE 10 MG/ML 4 ML VIAL IV SCH (08:35)
[2022-04-01] MEDS: METOPROLOL SUCCINATE (ER) 100 MG TAB.ER.24H PO SCH (08:35)
[2022-04-01] MEDS: polyethylene glycoL 3350 17 GM POWD.PACK PO SCH (08:35)
[2022-04-01] MEDS: LORATADINE-PSEUDOEPH 5-120 MG 1 EACH TAB.ER.12H PO SCH (08:36)
[2022-04-01] MEDS: RIVAROXABAN 20 MG TAB PO SCH (08:36)
[2022-04-01 09:27] LABS: C Reactive Protein 19.5 mg/dL (<1.0)
--- NOTE | 2022-04-01 10:15 | P.PN ---
Subjective Progress Note Date: 04/01/22 Principal diagnosis: Possible varices This is 66-year-old male with multiple comorbidities including alcoholic cirrhosis of the liver. Patient was admitted a week ago with complaints of weakness and shortness of breath. He was treated for pneumonia, within the last couple days patient became increasingly short of breath hypoxic requiring increased from 2-6 L of oxygen. He was subsequently transferred to the ICU. He is now requiring 10 L oxygen, with intermittent BiPAP. Apparently when he patient first came in he was coughing and coughed up a little bit of iveth blood. Gastroenterology was consulted on 03/25/2022 however there was no gastroenterology coverage that week. Today's the first time seeing patient. He denies any abdominal pain, nausea or vomiting. He denies any hematemesis. He states he has been coughing up sputum, some has been blood-tinged. He has a positive blood culture coagulase-negative staph. Patient's hemoglobin has been stable. Again denies any hematemesis. Excuse me his last EGD was in April [address] Hicks with findings of esophageal varices status post banding. Patient states at some time he did quit drinking however relapsed. His last hospitalization was in February of this year which he had a positive blood alcohol level. He last saw Dr. Sheehan in her office about a year ago otherwise has not been following with anyone. 03/31/2022. Patient seen and examined today as a follow-up. He remains in the ICU. He continues to deny any hematemesis, abdominal pain, nausea or vomiting. He denies any black stool or blood in his stool. Hemoglobin is stable at 11.9. Chest x-ray shows pattern of mixed interstitial and aVL or infiltrates. 04/01/2022. Patient seen and examined in the ICU. He is now on droplet pre caution for positive Covid infection. He had some nausea but no vomiting. Again he's had no hematemesis. Nausea is improved this morning. Denies any abdominal pain. Hemoglobin continues to improve and is at 12.2 today. Objective - Vital Signs Vital signs: Vital Signs Temp 98.7 F 04/01/22 00:00 Pulse 103 H 04/01/22 07:00 Resp 40 H 04/01/22 07:00 BP 121/67 04/01/22 07:00 Pulse Ox 95 04/01/22 07:00 FiO2 60 04/01/22 07:44 Intake & Output 03/31/22 04/01/22 04/01/22 18:59 06:59 18:59 Intake Total 320 340 20 Output Total 1220 1005 60 Balance -900 -665 -40 Weight 88.1 kg Intake: IV 320 240 20 0.9 220 240 20 Piperacillin-Tazobactam 3 100 .375 gm In Sodium Chloride 0.9% 100 ml @ 25 mls/hr IVPB Q8H [facility] Rx#: [id number] Oral 100 Output: Urine 1220 1005 60 Other: Voiding Method Indwelling Catheter Indwelling Catheter - Exam General appearance: The patient is alert, oriented, appears in no acute distress. HET: Head is normocephalic and atraumatic. Conjunctiva pink. Sclera anicteric. Neck: Supple without lymphadenopathy. Abdomen: Soft, nontender, nondistended with bowel sounds. No guarding or rigidity. Extremities: Normal skin color and turgor. No pedal edema Skin: No rashes, no jaundice Neurological: No focal deficits. Alert and oriented. - Labs CBC & Chem 7: 04/01/22 06:44 04/01/22 06:44 Labs: Abnormal Lab Results - Last 24 Hours (Table) 03/29/22 04/01/22 04/01/22 Range/Units 05:00 06:44 06:44 RBC 3.72 L (4.30-5.90) m/uL Hgb 12.2 L (13.0-17.5) gm/dL Hct 37.4 L (39.0-53.0) % MCV 100.6 H (80.0-100.0) fL Plt Count 102 L (150-450) k/uL D-Dimer (<0.60) mg/L FEU Chloride 110 H (98-107) mmol/L BUN 23 H (9-20) mg/dL Glucose 205 H (74-99) mg/dL Calcium 7.6 L (8.4-10.2) mg/dL Total Bilirubin 1.7 H (0.2-1.3) mg/dL AST 85 H (17-59) U/L Alkaline Phosphatase 143 H (38-126) U/L Total Protein 6.1 L (6.3-8.2) g/dL Albumin 2.9 L (3.5-5.0) g/dL Coronavirus (PCR) Detected A (Not Detected) 04/01/22 Range/Units 06:44 RBC (4.30-5.90) m/uL Hgb (13.0-17.5) gm/dL Hct (39.0-53.0) % MCV (80.0-100.0) fL Plt Count (150-450) k/uL D-Dimer 16.02 H (<0.60) mg/L FEU Chloride (98-107) mmol/L BUN (9-20) mg/dL Glucose (74-99) mg/dL Calcium (8.4-10.2) mg/dL Total Bilirubin (0.2-1.3) mg/dL AST (17-59) U/L Alkaline Phosphatase (38-126) U/L Total Protein (6.3-8.2) g/dL Albumin (3.5-5.0) g/dL Coronavirus (PCR) (Not Detected) Microbiology - Last 24 Hours (Table) 03/29/22 03:09 Blood Culture - Preliminary Blood No Growth after 72 hours Assessment and Plan (1) Alcoholic cirrhosis of liver Narrative/Plan: 66-year-old male with multiple comorbidities including a history of alcoholic cirrhosis of liver who continues to drink regularly. Patient states he quit drinking about one month ago. Patient was admitted for shortness of breath and weakness. During his hospitalization he had some coughing and sputum with some iveth blood. Gastroenterology was consulted for his history of esophageal vari janeth. Patient denies any abdominal pain, nausea vomiting. Hemoglobin has been stable. He is not having any hematemesis. He continues to have occasional iveth blood in his sputum. He is admitted with pneumonia, was transferred to the ICU for acute respiratory failure. There is no indication at this time for any endoscopic evaluation. Patient is not having any signs or symptoms of upper GI bleed. Denies any blood or black stool. Current Visit: No Status: Acute Code(s): K70.30 - ALCOHOLIC CIRRHOSIS OF LIVER WITHOUT ASCITES SNOMED Code(s): 737695709 (2) Acute respiratory failure with hypoxia Current Visit: Yes Status: Acute Code(s): J96.01 - ACUTE RESPIRATORY FAILURE WITH HYPOXIA SNOMED Code(s): 93420102 (3) Positive blood cultures Current Visit: Yes Status: Acute Code(s): R78.81 - BACTEREMIA SNOMED Code(s): 286531320 (4) Pneumonia Current Visit: No Status: Acute Code(s): J18.9 - PNEUMONIA, UNSPECIFIED ORGANISM SNOMED Code(s): 323753620 (5) COVID-19 virus infection Narrative/Plan: Patient initially was tested and negative for COVID-19 infection, patient retes rajwinder and now positive. Current Visit: Yes Status: Acute Code(s): U07.1 - COVID-19 SNOMED Code(s): 522459487 Plan: 1. Continue ICU management 2. Continue symptomatic supportive care 3. Diet as tolerated 4. No plan for an endoscopic evaluation 5. Protonix 40 mg daily, GI prophylaxis Thank you for this consultation, we will sign off at this time. Do not hesitate to call us back if further needed. Dr. Chase Sheehan I agree with the dictator's note, documented as a scribe by Keiry Bejarano.
[2022-04-01] MEDS ORDERED: ALBUTEROL HFA INHALER INHALATION PRN (10:54)
--- NOTE | 2022-04-01 11:06 | P.PN ---
Subjective Progress Note Date: 04/01/22 Principal diagnosis: Shortness of breath. This is a pleasant 66-year-old male patient with a known history of alcoholism, atrial fibrillation, anticoagulated with Xarelto, nonsmoker, chronic liver disease, pancytopenia, previous alcohol withdrawal seizures, portal hypertension, esophageal variceal bleeding, diabetes mellitus, hyperlipidemia, hypertension. He was admitted here back on 03/21/2022 for shortness of breath and cough and congestion. If he was admitted to the regular medical floor and being followed by medicine and infectious disease. He had one blood culture positive for coag-negative staph. Today the patient developed significant shortness of breath, hypoxemia and went from 2 L up to 6 L high flow nasal cannula with O2 saturation still in the 80s. We're consulted for the same. He is seen in his room urgently. He is quite dyspneic. His O2 saturations 82% on 6 L nasal cannula. He is given Lasix 40 mg IVP 1. Ativan 1 mg IV. Chest x- ray reveals significant bilateral multifocal infiltrates/edema. He was placed on BiPAP 16/6 and 50% FiO2 and to be admitted to the intensive care unit. White count 5.8. Hemoglobin 13.0. D-dimer 0.44. The patient is anticoagulated with Xarelto. He's been on DuoNeb inhalations and Pulmicort inhalations. Patient was reevaluated today on 03/28/22, patient was seen yesterday and was transferred to the ICU. He is now in the ICU, he is receiving Lasix is also receiving antibiotics in the form of Zosyn. Patient is feeling much better, overnight he was on BiPAP 12/6/50%, presently on 5 L nasal cannula. His IV fluids at KVO, patient had good urine output overnight, and a chest x-ray is showing definite improvement nonetheless he continues to have interstitial infiltrates/edema bilaterally. But after improvement compared to the chest x- ray yesterday. And the patient had significant clinical improvement today compared to yesterday.WBC count today is 7.1 hemoglobin is 12.7 a left was are normal renal profile showed a BUN of 18 creatinine of 1.17.pro-calcitonin level is pending Patient was reevaluated today on 03/29/22, patient remains in the ICU, remains on 6 L high flow nasal cannula, O2 saturation is marginal between 88 and 91%. Clinically the patient is feeling better, breathing easier, he had few episodes of blood-tinged sputum. Patient is on Zosyn, chest x-ray continues to show bila teral interstitial infiltrates/edema. Not much of a change in the chest x-ray in the last 2 days. Pro-calcitonin level came back elevated at 0.55 his WBC count is 6.3 hemoglobin is 12.1, electrolytes are normal BUN is 22 creatinine is up to 1.3 to hence I cut down his dose of diuretics to once daily instead of twice daily. Patient remains on Xarelto. Progress note dated 03/30/2022. The patient was admitted back on March 21. The patient came in with heart failure, diastolic in nature, questionable aspiration pneumonia. He came to the intensive care unit, on March 27. He is a 66-year-old male seen today in room 253. He remains on BiPAP, with settings of 12/6 and 50%. His blood c ultures are showing coag-negative staph. He is on Zosyn. His heart rate is 115. His saturations are 94%. White count 5.8, hemoglobin 11.5, hematocrit 34.3, and platelet count 84,000. Sodium 138, potassium 4, chlorides 106, CO2 26, BUN 19, and creatinine 1.23. No chest x-ray was done today. Progress note dated 03/31/2022. The patient is again seen today in room 253. He is currently on BiPAP, with settings of 12/6 and 50%. He's getting saline at keep vein open. He is on Zosyn empirically. Microbiologic studies have been negative thus far. The patient had an uneventful night according to the nurses. White count is 6.6, hemoglobin 11.9, hematocrit 35, platelet count 88,000. Sodium 142, potassium 4.1, chlorides 110, CO2 26, anion gap 6, BUN 21, and creatinine 1.19. A chest x-ray shows a pattern of mixed interstitial and alveolar infiltrates. No pneumothorax is seen. Progress note dated 04/01/2022. The patient is again seen in room 253. This is a 66-year-old male with a h istory of acute on chronic respiratory failure. He is currently on BiPAP, with settings of 12/6 and 50%. The patient did test positive for coronavirus yesterday. He likely suffering from coronavirus associated pneumonia. The patient remains on saline at 20 mL an hour. He is receiving IV Decadron, xarelto, and Zosyn. We will check a pro-calcitonin level. White count is 7.9, hemoglobin 12.2, hematocrit 37.4, and platelet count 202,000. D-dimer is 16.02. Sodium 143, potassium 4.1, chlorides 110, CO2 24, with a BUN of 23 and a creatinine of 1.07. Microbiologic studies are negative. Chest x-ray continues to show diffuse bilateral infiltrates. Objective - Vital Signs Vital signs: Vital Signs Temp 97.9 F 04/01/22 08:00 Pulse 96 04/01/22 10:00 Resp 26 H 04/01/22 10:00 BP 100/59 04/01/22 10:00 Pulse Ox 89 L 04/01/22 10:00 FiO2 92 04/01/22 08:50 Intake & Output 03/31/22 04/01/22 04/01/22 18:59 06:59 18:59 Intake Total 320 340 80 Output Total 1220 1005 685 Balance -900 -665 -605 Weight 88.1 kg Intake: IV 320 240 80 0.9 220 240 80 Piperacillin-Tazobactam 3 100 .375 gm In Sodium Chloride 0.9% 100 ml @ 25 mls/hr IVPB Q8H [facility] Rx#: [id number] Oral 100 Output: Urine 1220 1005 685 Other: Voiding Method Indwelling Catheter Indwelling Catheter - Exam No acute distress, currently on BiPAP. The patient is mildly tachypneic. HEENT examination is grossly unremarkable. Neck supple. Full range of motion. No adenopathy thyromegaly or neck vein distention. Cardiovascular examination reveals regular rhythm rate. S1-S2 normal. No S3 or S4. No discernible murmur noted. Heart rate 96 bpm. Heart sounds are distant. Lungs reveal scattered bilateral rhonchi. No wheezes or crackles. Breath sounds equal bilaterally. Saturations are 89-90%. Abdomen soft bowel sounds are heard. No masses or tenderness. Extremities are intact. No cyanosis clubbing or edema. Skin is without rash or lesion. Neurologic examination is brief but nonfocal. - Labs CBC & Chem 7: 04/01/22 06:44 11/16/22 06:44 Labs: Abnormal Lab Results - Last 24 Hours (Table) 03/29/22 04/01/22 04/01/22 Range/Units 05:00 06:44 06:44 RBC 3.72 L (4.30-5.90) m/uL Hgb 12.2 L (13.0-17.5) gm/dL Hct 37.4 L (39.0-53.0) % MCV 100.6 H (80.0-100.0) fL Plt Count 102 L (150-450) k/uL D-Dimer (<0.60) mg/L FEU Chloride 110 H (98-107) mmol/L BUN 23 H (9-20) mg/dL Glucose 205 H (74-99) mg/dL Calcium 7.6 L (8.4-10.2) mg/dL Total Bilirubin 1.7 H (0.2-1.3) mg/dL AST 85 H (17-59) U/L Alkaline Phosphatase 143 H (38-126) U/L C-Reactive Protein 19.5 H (<1.0) mg/dL Total Protein 6.1 L (6.3-8.2) g/dL Albumin 2.9 L (3.5-5.0) g/dL Coronavirus (PCR) Detected A (Not Detected) 04/01/22 Range/Units 06:44 RBC (4.30-5.90) m/uL Hgb (13.0-17.5) gm/dL Hct (39.0-53.0) % MCV (80.0-100.0) fL Plt Count (150-450) k/uL D-Dimer 16.02 H (<0.60) mg/L FEU Chloride (98-107) mmol/L BUN (9-20) mg/dL Glucose (74-99) mg/dL Calcium (8.4-10.2) mg/dL Total Bilirubin (0.2-1.3) mg/dL AST (17-59) U/L Alkaline Phosphatase (38-126) U/L C-Reactive Protein (<1.0) mg/dL Total Protein (6.3-8.2) g/dL Albumin (3.5-5.0) g/dL Coronavirus (PCR) (Not Detected) Microbiology - Last 24 Hours (Table) 03/29/22 03:09 Blood Culture - Preliminary Blood No Growth after 72 hours Assessment and Plan Assessment: Acute hypoxemic respiratory failure, secondary to suspected aspiration, possible underlying pulmonary edema, as well as coronavirus associated pneumonia. Chest pain, acute coronary syndrome, ruled out. Diastolic congestive heart failure. Chronic alcohol abuse. Elevated liver function, secondary to chronic alcohol abuse. Alcoholic liver disease. History of chronic atrial fibrillation. History of pulmonary embolism. Acute kidney injury. Bleeding esophageal varices. History of chronic anxiety and depression. History of hypertension. History of alcoholic seizures. History of TIA. Plan: Plan dated 03/30/2022. The patient remains on Zosyn empirically. Blood cultures are thus far negative. The patient's labs, x-rays, and medications are reviewed. He remains on BiPAP, with settings of 12/6 and 50%. Heart rate is 115. Saturations are 94%. We will continue to follow make recommendations along the way. Prognosis is guarded. Plan dated 03/31/2022. The patient remains on Zosyn empirically. Blood cultures and other cultures are currently negative. The patient spends most of the time on BiPAP, but sometimes on high flow oxygen therapy. Labs, x-rays, and medications are reviewed. We will continue to follow. The patient had an uneventful night according to the nurse last night. Prognosis is guarded. Plan dated 04/01/2022. The patient remains on Zosyn empirically. Yesterday, he did test positive for coronavirus. The infiltrates that we are seeing on x-ray, name fact be related to coronavirus pneumonia. Check a pro-calcitonin level. Remains on BiPAP. He is getting saline at 20 mL an hour. Prognosis is certainly guarded. We will continue to follow and make recommendations along the way. Labs, x-rays, and medications are all reviewed. Time with Patient: Greater than 30
[2022-04-01] MEDS: ALBUTEROL HFA INHALER INHALATION SCH ×3 (11:25→19:00)
[2022-04-01] MEDS: ONDANSETRON 4 MG/2 ML VIAL IVP PRN (11:58)
[2022-04-01] MEDS: THIAMINE 100 MG TAB PO SCH (11:58)
[2022-04-01] MEDS: ACETAMINOPHEN TAB 325 MG TAB PO PRN (16:31)
[2022-04-01] MEDS: SODIUM CHLORIDE 0.9% 1,000 ML IV SCH (16:33)
[2022-04-01] MEDS: bisacodyL 5 MG TABLET.DR PO PRN (22:08)
--- NOTE | 2022-04-01 23:06 | P.PN ---
Subjective Progress Note Date: 04/01/22 Principal diagnosis: Bacteremia Patient is a 66-year-old male with multiple comorbidities present to the ER for evaluation of chest pain or shortness of breath patient did not have any fever and the patient did have a normal white count blood cultures came back positive for gram-positive cocci that prompted this infectious disease consultation. On today's evaluation that is 04/01/2022 patient is afebrile this morning, patient is currently on high flow nasal cannula oxygen 60%, the patient denies having any chest pain, the patient did have a cough with occasional sputum denies any nausea no vomiting and no diarrhea Objective - Vital Signs Vital signs: Vital Signs Temp 97.7 F 04/01/22 12:00 Pulse 97 04/01/22 14:00 Resp 34 H 04/01/22 14:00 BP 99/61 04/01/22 14:00 Pulse Ox 87 L 04/01/22 14:00 FiO2 90 04/01/22 11:06 Intake & Output 03/31/22 04/01/22 04/01/22 18:59 06:59 18:59 Intake Total 320 340 160 Output Total 1220 1005 1375 Balance -900 -230 -1215 Weight 88.1 kg Intake: IV 320 240 160 0.9 220 240 160 Piperacillin-Tazobactam 3 100 .375 gm In Sodium Chloride 0.9% 100 ml @ 25 mls/hr IVPB Q8H [facility] Rx#: [id number] Oral 100 Output: Urine 1220 1005 1375 Other: Voiding Method Indwelling Catheter Indwelling Catheter Indwelling Catheter - Exam GENERAL DESCRIPTION: An elderly male lying in bed in no distress RESPIRATORY SYSTEM: Unlabored breathing , decreased breath sounds at bases HEART: S1 S2 regular rate and rhythm , ABDOMEN: Soft , no tenderness EXTREMITIES: No edema feet - Labs CBC & Chem 7: 04/01/22 06:44 04/01/22 06:44 Labs: Abnormal Lab Results - Last 24 Hours (Table) 04/01/22 04/01/22 04/01/22 Range/Units 06:44 06:44 06:44 RBC 3.72 L (4.30-5.90) m/uL Hgb 12.2 L (13.0-17.5) gm/dL Hct 37.4 L (39.0-53.0) % MCV 100.6 H (80.0-100.0) fL Plt Count 102 L (150-450) k/uL D-Dimer (<0.60) mg/L FEU Chloride 110 H (98-107) mmol/L BUN 23 H (9-20) mg/dL Glucose 205 H (74-99) mg/dL Calcium 7.6 L (8.4-10.2) mg/dL Total Bilirubin 1.7 H (0.2-1.3) mg/dL AST 85 H (17-59) U/L Alkaline Phosphatase 143 H (38-126) U/L C-Reactive Protein 19.5 H (<1.0) mg/dL Total Protein 6.1 L (6.3-8.2) g/dL Albumin 2.9 L (3.5-5.0) g/dL Procalcitonin 3.15 H (0.02-0.09) ng/mL 04/01/22 Range/Units 06:44 RBC (4.30-5.90) m/uL Hgb (13.0-17.5) gm/dL Hct (39.0-53.0) % MCV (80.0-100.0) fL Plt Count (150-450) k/uL D-Dimer 16.02 H (<0.60) mg/L FEU Chloride (98-107) mmol/L BUN (9-20) mg/dL Glucose (74-99) mg/dL Calcium (8.4-10.2) mg/dL Total Bilirubin (0.2-1.3) mg/dL AST (17-59) U/L Alkaline Phosphatase (38-126) U/L C-Reactive Protein (<1.0) mg/dL Total Protein (6.3-8.2) g/dL Albumin (3.5-5.0) g/dL Procalcitonin (0.02-0.09) ng/mL Microbiology - Last 24 Hours (Table) 03/29/22 03:09 Blood Culture - Preliminary Blood No Growth after 72 hours Assessment and Plan (1) Positive blood cultures Current Visit: Yes Status: Acute Code(s): R78.81 - BACTEREMIA SNOMED Code(s): 707680144 Plan: 1patient with gram-positive bacteremia in this patient predominantly with the respiratory symptoms however chest x-ray was negative for any consolidation patient not running any fever White count is normal concern for possible skin contamination rather than true infection. 2blood cultures has been repeated which are so far negative 3the patient blood culture has been finalized as coagulase-negative staph more likely skin contamination , patient will be monitored closely off antibiotic 4patient did have a worsening of his respiratory status with right-sided infil trate concern for possible nosocomial/aspiration pneumonia, however the patient Covid19 PCR came back positive and may be responsible for his persistent fever patient to continue with Xeralto, dexamethasone zinc and ascorbic acid along with Zosyn as the patient was evaluated procalcitonin and an monitor clinical course closely, Time with Patient: Less than 30
[2022-04-01] MEDS: traZODone HCL 50 MG TAB PO PRN (23:44)
[2022-04-02] MEDS: LORazepam 1 MG/0.5 ML VIAL IV PRN (01:32)
[2022-04-02] MEDS: PIPERACILLIN-TAZOBACTAM 3.375 GM in SODIUM CHLORIDE 0.9% 100 ML IVPB SCH ×2 (03:11→12:02)
[2022-04-02] MEDS: SUCRALFATE 1 GM TAB PO SCH ×3 (06:30→15:29)
--- NOTE | 2022-04-02 07:44 | XR ---
EXAMINATION TYPE: XR chest 1V DATE OF EXAM: 04/02/2022 COMPARISON: 04/01/2022 HISTORY: Cough TECHNIQUE: Single frontal view of the chest is obtained. FINDINGS: Diffuse bilateral infiltrates. Heart size stable. Hypertrophic and degenerative change of the spine. Small left pleural effusion. Atherosclerotic change aorta. No pneumothorax. IMPRESSION: 1. Diffuse bilateral infiltrate correlate for pneumonia or ARDS.
[2022-04-02 08:05] LABS: Basophils % (A) 0 %; Eosinophils % (A) 0 %; HCT 36.8 % (39.0-53.0); HGB 12.2 gm/dL (13.0-17.5); Hypochromasia Slight; Lymphocytes # (A) 0.5 k/uL (1.0-4.8); Lymphocytes % (A) 5 %; MCH 33.3 pg (25.0-35.0); Macrocytosis Slight; Mean Platelet Volume 11.8; Monocytes # (A) 0.5 k/uL (0-1.0); Monocytes % (A) 4 %; Neutrophils # (A) 10.3 k/uL (1.3-7.7); Neutrophils % (A) 90 %; Platelet Count 106 k/uL (150-450); RBC 3.65 m/uL (4.30-5.90); RDW 14.7 % (11.5-15.5); WBC 11.4 k/uL (3.8-10.6)
[2022-04-02 08:26] LABS: Calcium 7.6 mg/dL (8.4-10.2); Potassium 4.4 mmol/L (3.5-5.1)
[2022-04-02] MEDS: ATORVASTATIN 40 MG TAB PO SCH (08:59)
[2022-04-02] MEDS: hydrALAZINE HCL 50 MG TAB PO SCH ×3 (08:59→21:35)
[2022-04-02] MEDS: FUROSEMIDE 10 MG/ML 4 ML VIAL IV SCH (08:59)
[2022-04-02] MEDS: LOSARTAN 50 MG TAB PO SCH (08:59)
[2022-04-02] MEDS: amLODIPine 10 MG TAB PO SCH (08:59)
[2022-04-02] MEDS: LORATADINE-PSEUDOEPH 5-120 MG 1 EACH TAB.ER.12H PO SCH (08:59)
[2022-04-02] MEDS: MAGNESIUM OXIDE 400 MG TAB PO SCH ×2 (09:00→21:35)
[2022-04-02] MEDS: polyethylene glycoL 3350 17 GM POWD.PACK PO SCH (09:00)
[2022-04-02] MEDS: PANTOPRAZOLE 40 MG/10 ML VIAL IVP SCH ×2 (09:00→21:35)
[2022-04-02] MEDS: POTASSIUM CHLORIDE ER 20 MEQ TAB.ER PO SCH ×2 (09:00→21:35)
[2022-04-02] MEDS: methylPREDNISolone SOD SUCCI 125 MG/2 ML VIAL IV SCH ×4 (09:00→23:37)
[2022-04-02] MEDS: RIVAROXABAN 20 MG TAB PO SCH (09:00)
[2022-04-02] MEDS: METOPROLOL SUCCINATE (ER) 100 MG TAB.ER.24H PO SCH (09:00)
[2022-04-02] MEDS: TAMSULOSIN 0.4 MG CAP.ER.24H PO SCH (09:01)
[2022-04-02] MEDS: ALBUTEROL HFA INHALER INHALATION SCH ×4 (09:10→20:24)
[2022-04-02] MEDS: FLUTICASONE 220 MCG INHALER INHALATION SCH ×2 (09:11→20:25)
--- NOTE | 2022-04-02 10:29 | P.PN ---
Subjective Progress Note Date: 04/02/22 Principal diagnosis: Shortness of breath. This is a pleasant 66-year-old male patient with a known history of alcoholism, atrial fibrillation, anticoagulated with Xarelto, nonsmoker, chronic liver disease, pancytopenia, previous alcohol withdrawal seizures, portal hypertension, esophageal variceal bleeding, diabetes mellitus, hyperlipidemia, hypertension. He was admitted here back on 03/21/2022 for shortness of breath and cough and congestion. If he was admitted to the regular medical floor and being followed by medicine and infectious disease. He had one blood culture positive for coag-negative staph. Today the patient developed significant shortness of breath, hypoxemia and went from 2 L up to 6 L high flow nasal cannula with O2 saturation still in the 80s. We're consulted for the same. He is seen in his room urgently. He is quite dyspneic. His O2 saturations 82% on 6 L nasal cannula. He is given Lasix 40 mg IVP 1. Ativan 1 mg IV. Chest x- ray reveals significant bilateral multifocal infiltrates/edema. He was placed on BiPAP 16/6 and 50% FiO2 and to be admitted to the intensive care unit. White count 5.8. Hemoglobin 13.0. D-dimer 0.44. The patient is anticoagulated with Xarelto. He's been on DuoNeb inhalations and Pulmicort inhalations. Patient was reevaluated today on 03/28/22, patient was seen yesterday and was transferred to the ICU. He is now in the ICU, he is receiving Lasix is also receiving antibiotics in the form of Zosyn. Patient is feeling much better, overnight he was on BiPAP 12/6/50%, presently on 5 L nasal cannula. His IV fluids at KVO, patient had good urine output overnight, and a chest x-ray is showing definite improvement nonetheless he continues to have interstitial infiltrates/edema bilaterally. But after improvement compared to the chest x- ray yesterday. And the patient had significant clinical improvement today compared to yesterday.WBC count today is 7.1 hemoglobin is 12.7 a left was are normal renal profile showed a BUN of 18 creatinine of 1.17.pro-calcitonin level is pending Patient was reevaluated today on 03/29/22, patient remains in the ICU, remains on 6 L high flow nasal cannula, O2 saturation is marginal between 88 and 91%. Clinically the patient is feeling better, breathing easier, he had few episodes of blood-tinged sputum. Patient is on Zosyn, chest x-ray continues to show bila teral interstitial infiltrates/edema. Not much of a change in the chest x-ray in the last 2 days. Pro-calcitonin level came back elevated at 0.55 his WBC count is 6.3 hemoglobin is 12.1, electrolytes are normal BUN is 22 creatinine is up to 1.3 to hence I cut down his dose of diuretics to once daily instead of twice daily. Patient remains on Xarelto. Progress note dated 03/30/2022. The patient was admitted back on March 21. The patient came in with heart failure, diastolic in nature, questionable aspiration pneumonia. He came to the intensive care unit, on March 27. He is a 66-year-old male seen today in room 253. He remains on BiPAP, with settings of 12/6 and 50%. His blood c ultures are showing coag-negative staph. He is on Zosyn. His heart rate is 115. His saturations are 94%. White count 5.8, hemoglobin 11.5, hematocrit 34.3, and platelet count 84,000. Sodium 138, potassium 4, chlorides 106, CO2 26, BUN 19, and creatinine 1.23. No chest x-ray was done today. Progress note dated 03/31/2022. The patient is again seen today in room 253. He is currently on BiPAP, with settings of 12/6 and 50%. He's getting saline at keep vein open. He is on Zosyn empirically. Microbiologic studies have been negative thus far. The patient had an uneventful night according to the nurses. White count is 6.6, hemoglobin 11.9, hematocrit 35, platelet count 88,000. Sodium 142, potassium 4.1, chlorides 110, CO2 26, anion gap 6, BUN 21, and creatinine 1.19. A chest x-ray shows a pattern of mixed interstitial and alveolar infiltrates. No pneumothorax is seen. Progress note dated 04/01/2022. The patient is again seen in room 253. This is a 66-year-old male with a h istory of acute on chronic respiratory failure. He is currently on BiPAP, with settings of 12/6 and 50%. The patient did test positive for coronavirus yesterday. He likely suffering from coronavirus associated pneumonia. The patient remains on saline at 20 mL an hour. He is receiving IV Decadron, xarelto, and Zosyn. We will check a pro-calcitonin level. White count is 7.9, hemoglobin 12.2, hematocrit 37.4, and platelet count 202,000. D-dimer is 16.02. Sodium 143, potassium 4.1, chlorides 110, CO2 24, with a BUN of 23 and a creatinine of 1.07. Microbiologic studies are negative. Chest x-ray continues to show diffuse bilateral infiltrates. Progress note dated 04/02/2022. 66-year-old male again seen in room 253. He has a history of acute on chronic respiratory failure, secondary to coronavirus associated pneumonia. His chest x-ray looks worse today by day. His oxygenation has improved. He's pretty much BiPAP dependent with settings of 12/6 and 60%. He is getting saline at KVO. Today we'll DC the Decadron in favor of Solu-Medrol. We'll also discontinue the Zosyn. I will call his sister, Dominique. The patient's getting saline at KVO. White count 11.4, hemoglobin 12.2, hematocrit 36.8, and platelet count 106,000. Sodium 141, potassium 4.4, chlorides 109, CO2 24, BUN 35, and creatinine 1.08. Microbiology is negative. Chest x-rays reviewed. Chest x-ray infiltrates are worse. Objective - Vital Signs Vital signs: Vital Signs Temp 97.6 F 04/02/22 08:00 Pulse 89 04/02/22 10:00 Resp 22 04/02/22 10:00 BP 116/74 04/02/22 10:00 Pulse Ox 90 L 04/02/22 10:00 FiO2 60 04/02/22 08:00 Intake & Output 04/01/22 04/02/22 04/02/22 18:59 06:59 18:59 Intake Total 240 460 140 Output Total 5565 660 550 Balance -1535 -200 -410 Weight 88.9 kg Intake: IV 240 340 80 0.9 240 240 80 Piperacillin-Tazobactam 3 100 .375 gm In Sodium Chloride 0.9% 100 ml @ 25 mls/hr IVPB Q8H [facility] Rx#: [id number] Oral 120 60 Output: Urine 1775 660 550 Other: Voiding Method Indwelling Catheter Indwelling Catheter Indwelling Catheter - Exam No acute distress, currently on BiPAP. The patient is mildly tachypneic. HEENT examination is grossly unremarkable. Neck supple. Full range of motion. No adenopathy thyromegaly or neck vein distention. Cardiovascular examination reveals regular rhythm rate. S1-S2 normal. No S3 or S4. No discernible murmur noted. Heart rate 89 bpm. Heart sounds are distant. Lungs reveal scattered bilateral rhonchi. No wheezes or crackles. Breath sounds equal bilaterally. Saturations are 90%. Abdomen soft bowel sounds are heard. No masses or tenderness. Extremities are intact. No cyanosis clubbing or edema. Skin is without rash or lesion. Neurologic examination is brief but nonfocal. - Labs CBC & Chem 7: 04/02/22 07:36 04/02/22 07:36 Labs: Abnormal Lab Results - Last 24 Hours (Table) 04/01/22 04/02/22 04/02/22 Range/Units 06:44 07:36 07:36 WBC 11.4 H (3.8-10.6) k/uL RBC 3.65 L (4.30-5.90) m/uL Hgb 12.2 L (13.0-17.5) gm/dL Hct 36.8 L (39.0-53.0) % MCV 101.0 H (80.0-100.0) fL Plt Count 106 L (150-450) k/uL Neutrophils # 10.3 H (1.3-7.7) k/uL Lymphocytes # 0.5 L (1.0-4.8) k/uL Chloride 109 H (98-107) mmol/L BUN 35 H (9-20) mg/dL Glucose 180 H (74-99) mg/dL Calcium 7.6 L (8.4-10.2) mg/dL Procalcitonin 3.15 H (0.02-0.09) ng/mL Microbiology - Last 24 Hours (Table) 04/01/22 06:44 Blood Culture - Preliminary Blood No Growth after 24 hours 03/29/22 03:09 Blood Culture - Preliminary Blood No Growth after 96 hours Assessment and Plan Assessment: Acute hypoxemic respiratory failure, secondary to suspected aspiration, possible underlying pulmonary edema, as well as coronavirus associated pneumonia. Chest pain, acute coronary syndrome, ruled out. Diastolic congestive heart failure. Chronic alcohol abuse. Elevated liver function, secondary to chronic alcohol abuse. Alcoholic liver disease. History of chronic atrial fibrillation. History of pulmonary embolism. Acute kidney injury. Bleeding esophageal varices. History of chronic anxiety and depression. History of hypertension. History of alcoholic seizures. History of TIA. Plan: Plan dated 03/30/2022. The patient remains on Zosyn empirically. Blood cultures are thus far negative. The patient's labs, x-rays, and medications are reviewed. He remains on BiPAP, with settings of 12/6 and 50%. Heart rate is 115. Saturations are 94%. We will continue to follow make recommendations along the way. Prognosis is guarded. Plan dated 03/31/2022. The patient remains on Zosyn empirically. Blood cultures and other cultures are currently negative. The patient spends most of the time on BiPAP, but sometimes on high flow oxygen therapy. Labs, x-rays, and medications are reviewed. We will continue to follow. The patient had an uneventful night according to the nurse last night. Prognosis is guarded. Plan dated 04/01/2022. The patient remains on Zosyn empirically. Yesterday, he did test positive for coronavirus. The infiltrates that we are seeing on x-ray, name fact be related to coronavirus pneumonia. Check a pro-calcitonin level. Remains on BiPAP. He is getting saline at 20 mL an hour. Prognosis is certainly guarded. We will continue to follow and make recommendations along the way. Labs, x-rays, and medications are all reviewed. Plan dated 04/02/2022. The patient's Zosyn will be discontinued. He was getting it empirically. Labs, x-rays, and medications are all reviewed. We'll discontinue the Decadron in favor of Solu-Medrol. He is getting saline at KVO. Chest x-ray is a bit worse in my opinion. His oxygen requirements have really not improved at all. He is on all appropriate other medications. The next that would be intubation and mechanical ventilation. I'm going to recheck to his sister, Dominique. Prognosis is certainly guarded. Time with Patient: Greater than 30
[2022-04-02] MEDS: SODIUM CHLORIDE 0.9% 1,000 ML IV SCH (11:28)
[2022-04-02] MEDS: THIAMINE 100 MG TAB PO SCH (12:03)
[2022-04-02] MEDS: ACETAMINOPHEN TAB 325 MG TAB PO PRN (13:35)
[2022-04-02] MEDS ORDERED: LORazepam 2 MG/ML INJ IV PRN (15:27)
[2022-04-03] MEDS: traZODone HCL 50 MG TAB PO PRN (01:51)
--- NOTE | 2022-04-03 03:04 | PN ---
PROGRESS NOTE DATE OF SERVICE: 04/02/2022 CHIEF COMPLAINT: Pneumonitis. HISTORY OF PRESENT ILLNESS: This gentleman continues to have respiratory difficulties and is on BiPAP most of the day. PHYSICAL EXAMINATION: LUNGS: Breath sounds are somewhat diminished. CARDIAC: Normal. ABDOMEN: Protuberant, soft. IMPRESSION: 1. Pneumonitis. 2. Respiratory failure. 3. COVID-19. 4. Alcoholism. 5. Alcoholic hepatitis and cirrhosis. PLAN: No change in his program at this time. His respiratory picture is deteriorating at this point. It is hoped that this can be turned around. MMODL / IJN: [id number] /
--- NOTE | 2022-04-03 03:37 | PN ---
PROGRESS NOTE DATE OF SERVICE: 03/31/2022 CHIEF COMPLAINT: Respiratory failure, pneumonitis. HISTORY OF PRESENT ILLNESS: This gentleman's respiratory picture has deteriorated. He is more dependent on respiratory assist with BiPAP. Chest x-ray has deteriorated. PHYSICAL EXAMINATION: GENERAL: He is awake and alert. LUNGS: Breath sounds are heard bilaterally. He does not have any chest pain. He is not nauseated. CARDIAC: Normal. ABDOMEN: Soft, nontender. IMPRESSION: 1. Respiratory failure. 2. Bronchial pneumonia. 3. Alcoholism. 4. Cirrhosis. PLAN: Pulmonary function continues to be a concern as his pulmonary picture seems to deteriorate. He will be kept in the ICU until this improves. MMODL / IJN: [id number] /
--- NOTE | 2022-04-03 03:49 | PN ---
PROGRESS NOTE DATE OF SERVICE: 04/01/2022 CHIEF COMPLAINT: Pneumonitis. HISTORY OF PRESENT ILLNESS: This gentleman continues to have episodes of shortness of breath and hypoxia. He has tested positive for COVID. PHYSICAL EXAMINATION: He is on BiPAP at this time. His vital signs are normal. Chest demonstrates good breath sounds bilaterally. Cardiac exam is normal. IMPRESSION: 1. Bronchopneumonia. 2. COVID-19. 3. Alcoholism. 4. Respiratory failure. PLAN: No change in his program while he is in the intensive care unit. He remains awake, alert. MMODL / RENAEN: [id number] /
[2022-04-03] MEDS: methylPREDNISolone SOD SUCCI 125 MG/2 ML VIAL IV SCH ×3 (06:28→18:28)
[2022-04-03] MEDS: SUCRALFATE 1 GM TAB PO SCH ×3 (06:30→16:34)
--- NOTE | 2022-04-03 06:45 | PN ---
PROGRESS NOTE DATE OF SERVICE: 04/02/2022 CHIEF COMPLAINT: syndrome and pneumonitis. HISTORY OF PRESENT ILLNESS: This gentleman continues to have difficulty and require ventilator support. He is on BiPAP frequently as well as high-flow nasal O2. Chest x-ray has deteriorated. PHYSICAL EXAMINATION: GENERAL: He is awake and alert. CHEST: Demonstrates scattered rales and rhonchi anteriorly and posteriorly. CARDIAC: Normal. ABDOMEN: Soft, nontender. IMPRESSION: 1. Bronchopneumonia. 2. Acute respiratory distress syndrome. 3. Probable COVID associated pneumonia. PLAN: Continue to monitor his progress while he is in the intensive care unit. MMODL / IJN: [id number] /
--- NOTE | 2022-04-03 07:38 | XR ---
EXAMINATION TYPE: XR chest 1V portable DATE OF EXAM: 04/03/2022 5:59 AM COMPARISON: Chest radiograph from one day prior. TECHNIQUE: XR chest 1V portable Portable AP radiograph of the chest. CLINICAL INDICATION:Male, 66 years old with history of short of breath; FINDINGS: Lungs/Pleura: Similar multifocal airspace opacities. No evidence of pneumothorax or pleural effusion. Pulmonary vascularity: Unremarkable. Heart/mediastinum: Cardiomediastinal silhouette is unremarkable. Musculoskeletal: No acute osseous pathology. IMPRESSION: Similar multifocal airspace opacities.
[2022-04-03] MEDS ORDERED: LORazepam 1 MG/0.5 ML VIAL IV PRN (08:10)
[2022-04-03] MEDS: ONDANSETRON 4 MG/2 ML VIAL IVP PRN (08:17)
[2022-04-03] MEDS: ALBUTEROL HFA INHALER INHALATION SCH ×4 (08:39→19:36)
[2022-04-03] MEDS: FLUTICASONE 220 MCG INHALER INHALATION SCH ×2 (08:39→19:36)
[2022-04-03] MEDS: FUROSEMIDE 10 MG/ML 4 ML VIAL IV SCH (10:00)
[2022-04-03] MEDS: hydrALAZINE HCL 50 MG TAB PO SCH ×3 (10:00→20:34)
[2022-04-03] MEDS: ATORVASTATIN 40 MG TAB PO SCH (10:00)
[2022-04-03] MEDS: LOSARTAN 50 MG TAB PO SCH (10:00)
[2022-04-03] MEDS: MAGNESIUM OXIDE 400 MG TAB PO SCH ×2 (10:00→20:34)
[2022-04-03] MEDS: LORATADINE-PSEUDOEPH 5-120 MG 1 EACH TAB.ER.12H PO SCH (10:00)
[2022-04-03] MEDS: amLODIPine 10 MG TAB PO SCH (10:00)
[2022-04-03] MEDS: PANTOPRAZOLE 40 MG/10 ML VIAL IVP SCH ×2 (10:01→20:34)
[2022-04-03] MEDS: polyethylene glycoL 3350 17 GM POWD.PACK PO SCH (10:01)
[2022-04-03] MEDS: TAMSULOSIN 0.4 MG CAP.ER.24H PO SCH (10:01)
[2022-04-03] MEDS: POTASSIUM CHLORIDE ER 20 MEQ TAB.ER PO SCH ×2 (10:01→20:34)
[2022-04-03] MEDS: RIVAROXABAN 20 MG TAB PO SCH (10:01)
[2022-04-03] MEDS: METOPROLOL SUCCINATE (ER) 100 MG TAB.ER.24H PO SCH (10:01)
[2022-04-03] MEDS: ACETAMINOPHEN TAB 325 MG TAB PO PRN (10:14)
[2022-04-03] MEDS ORDERED: LIDOCAINE 1% INJ 10MG/ML (30 ML VIAL-PF) SQ ONE (10:35)
--- NOTE | 2022-04-03 10:55 | P.PN ---
Subjective Progress Note Date: 04/03/22 Principal diagnosis: Shortness of breath. This is a pleasant 66-year-old male patient with a known history of alcoholism, atrial fibrillation, anticoagulated with Xarelto, nonsmoker, chronic liver disease, pancytopenia, previous alcohol withdrawal seizures, portal hypertension, esophageal variceal bleeding, diabetes mellitus, hyperlipidemia, hypertension. He was admitted here back on 03/21/2022 for shortness of breath and cough and congestion. If he was admitted to the regular medical floor and being followed by medicine and infectious disease. He had one blood culture positive for coag-negative staph. Today the patient developed significant shortness of breath, hypoxemia and went from 2 L up to 6 L high flow nasal cannula with O2 saturation still in the 80s. We're consulted for the same. He is seen in his room urgently. He is quite dyspneic. His O2 saturations 82% on 6 L nasal cannula. He is given Lasix 40 mg IVP 1. Ativan 1 mg IV. Chest x- ray reveals significant bilateral multifocal infiltrates/edema. He was placed on BiPAP 16/6 and 50% FiO2 and to be admitted to the intensive care unit. White count 5.8. Hemoglobin 13.0. D-dimer 0.44. The patient is anticoagulated with Xarelto. He's been on DuoNeb inhalations and Pulmicort inhalations. Patient was reevaluated today on 03/28/22, patient was seen yesterday and was transferred to the ICU. He is now in the ICU, he is receiving Lasix is also receiving antibiotics in the form of Zosyn. Patient is feeling much better, overnight he was on BiPAP 12/6/50%, presently on 5 L nasal cannula. His IV fluids at KVO, patient had good urine output overnight, and a chest x-ray is showing definite improvement nonetheless he continues to have interstitial infiltrates/edema bilaterally. But after improvement compared to the chest x- ray yesterday. And the patient had significant clinical improvement today compared to yesterday.WBC count today is 7.1 hemoglobin is 12.7 a left was are normal renal profile showed a BUN of 18 creatinine of 1.17.pro-calcitonin level is pending Patient was reevaluated today on 03/29/22, patient remains in the ICU, remains on 6 L high flow nasal cannula, O2 saturation is marginal between 88 and 91%. Clinically the patient is feeling better, breathing easier, he had few episodes of blood-tinged sputum. Patient is on Zosyn, chest x-ray continues to show bila teral interstitial infiltrates/edema. Not much of a change in the chest x-ray in the last 2 days. Pro-calcitonin level came back elevated at 0.55 his WBC count is 6.3 hemoglobin is 12.1, electrolytes are normal BUN is 22 creatinine is up to 1.3 to hence I cut down his dose of diuretics to once daily instead of twice daily. Patient remains on Xarelto. Progress note dated 03/30/2022. The patient was admitted back on March 21. The patient came in with heart failure, diastolic in nature, questionable aspiration pneumonia. He came to the intensive care unit, on March 27. He is a 66-year-old male seen today in room 253. He remains on BiPAP, with settings of 12/6 and 50%. His blood c ultures are showing coag-negative staph. He is on Zosyn. His heart rate is 115. His saturations are 94%. White count 5.8, hemoglobin 11.5, hematocrit 34.3, and platelet count 84,000. Sodium 138, potassium 4, chlorides 106, CO2 26, BUN 19, and creatinine 1.23. No chest x-ray was done today. Progress note dated 03/31/2022. The patient is again seen today in room 253. He is currently on BiPAP, with settings of 12/6 and 50%. He's getting saline at keep vein open. He is on Zosyn empirically. Microbiologic studies have been negative thus far. The patient had an uneventful night according to the nurses. White count is 6.6, hemoglobin 11.9, hematocrit 35, platelet count 88,000. Sodium 142, potassium 4.1, chlorides 110, CO2 26, anion gap 6, BUN 21, and creatinine 1.19. A chest x-ray shows a pattern of mixed interstitial and alveolar infiltrates. No pneumothorax is seen. Progress note dated 04/01/2022. The patient is again seen in room 253. This is a 66-year-old male with a h istory of acute on chronic respiratory failure. He is currently on BiPAP, with settings of 12/6 and 50%. The patient did test positive for coronavirus yesterday. He likely suffering from coronavirus associated pneumonia. The patient remains on saline at 20 mL an hour. He is receiving IV Decadron, xarelto, and Zosyn. We will check a pro-calcitonin level. White count is 7.9, hemoglobin 12.2, hematocrit 37.4, and platelet count 202,000. D-dimer is 16.02. Sodium 143, potassium 4.1, chlorides 110, CO2 24, with a BUN of 23 and a creatinine of 1.07. Microbiologic studies are negative. Chest x-ray continues to show diffuse bilateral infiltrates. Progress note dated 04/02/2022. 66-year-old male again seen in room 253. He has a history of acute on chronic respiratory failure, secondary to coronavirus associated pneumonia. His chest x-ray looks worse today by day. His oxygenation has improved. He's pretty much BiPAP dependent with settings of 12/6 and 60%. He is getting saline at KVO. Today we'll DC the Decadron in favor of Solu-Medrol. We'll also discontinue the Zosyn. I will call his sister, Dominique. The patient's getting saline at KVO. White count 11.4, hemoglobin 12.2, hematocrit 36.8, and platelet count 106,000. Sodium 141, potassium 4.4, chlorides 109, CO2 24, BUN 35, and creatinine 1.08. Microbiology is negative. Chest x-rays reviewed. Chest x-ray infiltrates are worse. Progress note dated 04/03/2022. 66-year-old male again seen in room 253. He has a history of acute on chronic respiratory failure, secondary to coronavirus associated pneumonia. The patient is currently maintained on BiPAP, with settings of 12/6, and 60%. Today, he will be on some AIRVO, at 60 L/m, and an FiO2 of 90%. The patient's getting saline at KVO. I attempted to talk to his siblings yesterday. I called both numbers, but was unable to get through or even leave a message. Today, the patient will get a PICC line, and we will likely start him on TPN. No new labs today. Chest x-rays are reviewed. Microbiologic studies have been negative thus far. Objective - Vital Signs Vital signs: Vital Signs Temp 98.0 F 04/03/22 04:00 Pulse 103 H 04/03/22 07:00 Resp 26 H 04/03/22 07:00 BP 133/71 04/03/22 07:00 Pulse Ox 87 L 04/03/22 07:00 FiO2 90 04/03/22 08:37 Intake & Output 04/02/22 04/03/22 04/03/22 18:59 06:59 18:59 Intake Total 400 360 20 Output Total 1575 670 50 Balance -1175 -310 -30 Weight 90.1 kg Intake: IV 340 240 20 0.9 240 240 20 Piperacillin-Tazobactam 3 100 .375 gm In Sodium Chloride 0.9% 100 ml @ 25 mls/hr IVPB Q8H [facility] Rx#: [id number] Oral 60 120 Output: Urine 1575 670 50 Other: Voiding Method Indwelling Catheter Indwelling Catheter - Exam No acute distress, currently on BiPAP. The patient is mildly tachypneic. HEENT examination is grossly unremarkable. Neck supple. Full range of motion. No adenopathy thyromegaly or neck vein distention. Cardiovascular examination reveals regular rhythm rate. S1-S2 normal. No S3 or S4. No discernible murmur noted. Heart rate 103 bpm. Heart sounds are distant. Lungs reveal scattered bilateral rhonchi. No wheezes or crackles. Breath sounds equal bilaterally. Saturations are 93 %. Abdomen soft bowel sounds are heard. No masses or tenderness. Extremities are intact. No cyanosis clubbing or edema. Skin is without rash or lesion. Neurologic examination is brief but nonfocal. - Labs CBC & Chem 7: 04/02/22 07:36 04/02/22 07:36 Labs: Microbiology - Last 24 Hours (Table) 04/01/22 06:44 Blood Culture - Preliminary Blood No Growth after 48 hours 03/29/22 03:09 Blood Culture - Preliminary Blood No Growth after 120 hours Assessment and Plan Assessment: Acute hypoxemic respiratory failure, secondary to suspected aspiration, possible underlying pulmonary edema, as well as coronavirus associated pneumonia. Chest pain, acute coronary syndrome, ruled out. Diastolic congestive heart failure. Chronic alcohol abuse. Elevated liver function, secondary to chronic alcohol abuse. Alcoholic liver disease. History of chronic atrial fibrillation. History of pulmonary embolism. Acute kidney injury. Bleeding esophageal varices. History of chronic anxiety and depression. History of hypertension. History of alcoholic seizures. History of TIA. Plan: Plan dated 03/30/2022. The patient remains on Zosyn empirically. Blood cultures are thus far negative. The patient's labs, x-rays, and medications are reviewed. He remains on BiPAP, with settings of 12/6 and 50%. Heart rate is 115. Saturations are 94%. We will continue to follow make recommendations along the way. Prognosis is guarded. Plan dated 03/31/2022. The patient remains on Zosyn empirically. Blood cultures and other cultures are currently negative. The patient spends most of the time on BiPAP, but sometimes on high flow oxygen therapy. Labs, x-rays, and medications are reviewed. We will continue to follow. The patient had an uneventful night according to the nurse last night. Prognosis is guarded. Plan dated 04/01/2022. The patient remains on Zosyn empirically. Yesterday, he did test positive for coronavirus. The infiltrates that we are seeing on x-ray, name fact be related to coronavirus pneumonia. Check a pro-calcitonin level. Remains on BiPAP. He is getting saline at 20 mL an hour. Prognosis is certainly guarded. We will continue to follow and make recommendations along the way. Labs, x-rays, and medications are all reviewed. Plan dated 04/02/2022. The patient's Zosyn will be discontinued. He was getting it empirically. Labs, x-rays, and medications are all reviewed. We'll discontinue the Decadron in favor of Solu-Medrol. He is getting saline at KVO. Chest x-ray is a bit worse in my opinion. His oxygen requirements have really not improved at all. He is on all appropriate other medications. The next that would be intubation and mechanical ventilation. I'm going to recheck to his sister, Dominique. Prognosis is certainly guarded. Plan dated 04/03/2022. I attempted to talk to the brother and sister. I called both numbers, and was not able to get through or even leave a message. The nurse will try again. Labs, x-rays, and medications are reviewed. His overall prognosis remains guarded. Chest x-ray shows diffuse bilateral infiltrates, which have early not improved very much. The patient was changed from IV Decadron to Solu-Medrol. We will continue to follow make recommendations along the way. Time with Patient: Greater than 30
--- NOTE | 2022-04-03 10:59 | XR ---
EXAMINATION TYPE: XR chest 1V confirm line [facility] DATE OF EXAM: 04/03/2022 COMPARISON: 04/03/2022 HISTORY: Decline TECHNIQUE: Single frontal view of the chest is obtained. FINDINGS: Diffuse bilateral infiltrates stable. Left-sided PICC line seen with the tip overlying the right atrium. No pneumothorax. Diffuse osteopenia. Hypertrophic degenerative change of the spine. IMPRESSION: PICC line appears in good position. Stable diffuse bilateral infiltrates.
--- NOTE | 2022-04-03 11:50 | IR ---
PICC LINE PLACEMENT: HISTORY: Infection requiring long-term antibiotic therapy PROCEDURE: Ultrasound guidance of PICC line placement. MENTAL HEALTH COORDINATOR: Dr. Foster. COMPLICATIONS: None ANESTHESIA: 1. 1% Lidocaine locally. FINDINGS/TECHNIQUE: The procedure was explained to the patient. The risks, complications, benefits and alternatives were discussed and any questions were answered. Informed consent was obtained. The patient was placed supine on the fluoroscopic table and prepped and draped in the usual sterile fas ion. Utilizing a 21 gauge needle and sonographic guidance, access in the right basilic vein was ach ieved and there is placement of a 0.018 guidewire. The vein is patent. A 5-F. sheath was placed ove r the guidewire. The guidewire and dilator were removed and a 5-F. Double lumen PICC line was placed through the sheath with the chest x-ray confirming the tip at the level of the SVC. The sheath was removed, the catheter was flushed and sutured into position. The patient was stable throughout the p rocedure and remained stable upon discharge from the Department of Radiology. The vein puncture was patent under ultrasound. A rios scale image was obtained to document patency of the vein punctured. All elements of the maximal barrier technique were utilized. IMPRESSION: 1. Successful PICC line placement under ultrasound performed bedside within the ICU.
[2022-04-03] MEDS: SODIUM CHLORIDE 0.9% 1,000 ML IV SCH (12:25)
[2022-04-03] MEDS: THIAMINE 100 MG TAB PO SCH (12:25)
[2022-04-03 14:56] LABS: Basophils % (A) 0 %; Eosinophils % (A) 0 %; HCT 36.8 % (39.0-53.0); Hypochromasia Slight; Lymphocytes # (A) 0.4 k/uL (1.0-4.8); Lymphocytes % (A) 3 %; MCH 33.3 pg (25.0-35.0); MCHC 32.7 g/dL (31.0-37.0); MCV 101.8 fL (80.0-100.0); Macrocytosis Slight; Mean Platelet Volume 12.5; Monocytes # (A) 0.6 k/uL (0-1.0); Monocytes % (A) 4 %; Neutrophils # (A) 12.7 k/uL (1.3-7.7); Neutrophils % (A) 91 %; Platelet Count 145 k/uL (150-450); RBC 3.61 m/uL (4.30-5.90); RDW 14.7 % (11.5-15.5)
[2022-04-03 15:08] LABS: Calcium 7.9 mg/dL (8.4-10.2); Potassium 4.4 mmol/L (3.5-5.1)
[2022-04-03] MEDS: bisacodyL 5 MG TABLET.DR PO PRN (16:34)
--- NOTE | 2022-04-03 23:07 | P.PN ---
Subjective Progress Note Date: 04/02/22 Principal diagnosis: Bacteremia Patient is a 66-year-old male with multiple comorbidities present to the ER for evaluation of chest pain or shortness of breath patient did not have any fever and the patient did have a normal white count blood cultures came back positive for gram-positive cocci that prompted this infectious disease consultation. On today's evaluation that is 04/02/2022 patient remains to be afebrile , patient is still requiring BiPAP , the patient denies having any chest pain, the patient did have a cough but not bringing up any sputum, the patient denies having any nausea no vomiting no abdominal pain or diarrhea Objective - Vital Signs Vital signs: Vital Signs Temp 97.6 F 04/02/22 08:00 Pulse 98 04/02/22 15:00 Resp 21 04/02/22 15:00 BP 107/62 04/02/22 14:00 Pulse Ox 88 L 04/02/22 15:00 FiO2 60 04/02/22 15:38 Intake & Output 04/01/22 04/02/22 04/02/22 18:59 06:59 18:59 Intake Total 240 460 340 Output Total 4712 800 8596 Balance -1535 -200 -1010 Weight 88.9 kg Intake: IV 240 340 280 0.9 240 240 180 Piperacillin-Tazobactam 3 100 100 .375 gm In Sodium Chloride 0.9% 100 ml @ 25 mls/hr IVPB Q8H [facility] Rx#: [id number] Oral 120 60 Output: Urine 6049 686 4207 Other: Voiding Method Indwelling Catheter Indwelling Catheter Indwelling Catheter - Exam GENERAL DESCRIPTION: An elderly male lying in bed in no distress RESPIRATORY SYSTEM: Unlabored breathing , decreased breath sounds at bases HEART: S1 S2 regular rate and rhythm , ABDOMEN: Soft , no tenderness EXTREMITIES: No edema feet - Labs CBC & Chem 7: 04/03/22 14:52 04/03/22 14:52 Labs: Abnormal Lab Results - Last 24 Hours (Table) 04/02/22 04/02/22 Range/Units 07:36 07:36 WBC 11.4 H (3.8-10.6) k/uL RBC 3.65 L (4.30-5.90) m/uL Hgb 12.2 L (13.0-17.5) gm/dL Hct 36.8 L (39.0-53.0) % MCV 101.0 H (80.0-100.0) fL Plt Count 106 L (150-450) k/uL Neutrophils # 10.3 H (1.3-7.7) k/uL Lymphocytes # 0.5 L (1.0-4.8) k/uL Chloride 109 H (98-107) mmol/L BUN 35 H (9-20) mg/dL Glucose 180 H (74-99) mg/dL Calcium 7.6 L (8.4-10.2) mg/dL Microbiology - Last 24 Hours (Table) 04/01/22 06:44 Blood Culture - Preliminary Blood No Growth after 24 hours 03/29/22 03:09 Blood Culture - Preliminary Blood No Growth after 96 hours Assessment and Plan (1) Positive blood cultures Current Visit: Yes Status: Acute Code(s): R78.81 - BACTEREMIA SNOMED Code(s): 312027200 Plan: 1patient with gram-positive bacteremia in this patient predominantly with the respiratory symptoms however chest x-ray was negative for any consolidation patient not running any fever White count is normal concern for possible skin contamination rather than true infection. 2blood cultures has been repeated which are so far negative 3the patient blood culture has been finalized as coagulase-negative staph more likely skin contamination , patient will be monitored closely off antibiotic 4patient did have a worsening of his respiratory status with right-sided infiltrate concern for possible nosocomial/aspiration pneumonia, however the pa tient Covid19 PCR came back positive and may be responsible for his persistent fever patient fever responded to the addition of steroids which has been switched over to Solu-Medrol to continue along with Xeralto, zinc and ascorbic acid along with Zosyn and monitor clinical course closely, Time with Patient: Less than 30
--- NOTE | 2022-04-03 23:08 | P.PN ---
Subjective Progress Note Date: 04/03/22 Principal diagnosis: Bacteremia Patient is a 66-year-old male with multiple comorbidities present to the ER for evaluation of chest pain or shortness of breath patient did not have any fever and the patient did have a normal white count blood cultures came back positive for gram-positive cocci that prompted this infectious disease consultation. On today's evaluation that is 04/03/2022 patient continues to be afebrile , the patient is still BiPAP dependent, the patient denies having any chest pain, the patient denies any worsening cough or sputum production no abdominal pain and no diarrhea Objective - Vital Signs Vital signs: Vital Signs Temp 97.8 F 04/03/22 12:00 Pulse 103 H 04/03/22 14:00 Resp 25 H 04/03/22 14:00 BP 117/66 04/03/22 14:00 Pulse Ox 92 L 04/03/22 14:00 FiO2 60 04/03/22 14:00 Intake & Output 04/02/22 04/03/22 04/03/22 18:59 06:59 18:59 Intake Total 330 502 2558 Output Total 1416 603 6343 Balance -1175 -310 -585 Weight 90.1 kg Intake: IV 340 240 160 0.9 240 240 160 Piperacillin-Tazobactam 3 100 .375 gm In Sodium Chloride 0.9% 100 ml @ 25 mls/hr IVPB Q8H [facility] Rx#: [id number] Oral 60 120 880 Output: Urine [id number] [id number] Other: Voiding Method Indwelling Catheter Indwelling Catheter Indwelling Catheter - Exam GENERAL DESCRIPTION: An elderly male lying in bed in no distress RESPIRATORY SYSTEM: Unlabored breathing , decreased breath sounds at bases HEART: S1 S2 regular rate and rhythm , ABDOMEN: Soft , no tenderness EXTREMITIES: No edema feet - Labs CBC & Chem 7: 04/03/22 14:52 04/03/22 14:52 Labs: Microbiology - Last 24 Hours (Table) 04/01/22 06:44 Blood Culture - Preliminary Blood No Growth after 48 hours 03/29/22 03:09 Blood Culture - Preliminary Blood No Growth after 120 hours Assessment and Plan (1) Positive blood cultures Current Visit: Yes Status: Acute Code(s): R78.81 - BACTEREMIA SNOMED Code(s): 183339890 Plan: 1patient with gram-positive bacteremia in this patient predominantly with the respiratory symptoms however chest x-ray was negative for any consolidation patient not running any fever White count is normal concern for possible skin contamination rather than true infection. 2blood cultures has been repeated which are so far negative 3the patient blood culture has been finalized as coagulase-negative staph more likely skin contamination , patient will be monitored closely off antibiotic 4patient did have a worsening of his respiratory status with right-sided infiltrate concern for possible nosocomial/aspiration pneumonia, however the patient Covid19 PCR came back positive and may be responsible for his persistent fever patient fever responded to the addition of steroids which has been switched over to Solu-Medrol, Zosyn has been discontinued by pulmonary with the pulmonary service managing his antibiotic infectious disease service will sign off Time with Patient: Less than 30
[2022-04-04] MEDS: methylPREDNISolone SOD SUCCI 125 MG/2 ML VIAL IV SCH ×5 (00:48→23:19)
[2022-04-04] MEDS: ONDANSETRON 4 MG/2 ML VIAL IVP PRN (02:43)
[2022-04-04] MEDS: LORazepam 2 MG/ML INJ IV PRN ×2 (02:44→09:43)
[2022-04-04 07:17] LABS: Basophils % (A) 0 %; Eosinophils % (A) 0 %; HCT 40.3 % (39.0-53.0); HGB 12.8 gm/dL (13.0-17.5); Hypochromasia Moderate; Lymphocytes # (A) 0.3 k/uL (1.0-4.8); Lymphocytes % (A) 2 %; MCH 32.8 pg (25.0-35.0); MCHC 31.7 g/dL (31.0-37.0); MCV 103.4 fL (80.0-100.0); Macrocytosis Slight; Mean Platelet Volume 12.2; Monocytes # (A) 0.7 k/uL (0-1.0); Monocytes % (A) 5 %; Neutrophils # (A) 11.5 k/uL (1.3-7.7); Neutrophils % (A) 92 %; Platelet Count 150 k/uL (150-450); RDW 14.2 % (11.5-15.5); WBC 12.5 k/uL (3.8-10.6)
[2022-04-04 07:26] LABS: Albumin 2.9 g/dL (3.5-5.0); Calcium 8.4 mg/dL (8.4-10.2); Potassium 4.4 mmol/L (3.5-5.1); Total Bilirubin 1.5 mg/dL (0.2-1.3); Total Protein 6.2 g/dL (6.3-8.2)
[2022-04-04] MEDS: ALBUTEROL HFA INHALER INHALATION SCH ×4 (08:07→20:17)
[2022-04-04] MEDS: FLUTICASONE 220 MCG INHALER INHALATION SCH ×2 (08:07→20:18)
--- NOTE | 2022-04-04 08:30 | XR ---
EXAMINATION TYPE: XR chest 1V portable DATE OF EXAM: 04/04/2022 Comparison: 04/03/2022 Clinical History: 66-year-old male covid Findings: Leftward patient rotation alters normal cardiac and mediastinal contours. Left PICC tip at the cavoat rial junction. Heart upper limits of normal in size. Diffuse bilateral hazy interstitial opacities, l eft greater than right. There may be slight improving aeration on the right but extensive opacities p ersist. No pleural effusion. Impression: Ongoing diffuse hazy interstitial infiltrates, left greater than right. There may be minimal improvem ent now on the right.
[2022-04-04] MEDS: SUCRALFATE 1 GM TAB PO SCH ×3 (08:40→16:30)
[2022-04-04] MEDS: amLODIPine 10 MG TAB PO SCH (08:45)
[2022-04-04] MEDS: FUROSEMIDE 10 MG/ML 4 ML VIAL IV SCH (08:45)
[2022-04-04] MEDS: ATORVASTATIN 40 MG TAB PO SCH (08:45)
[2022-04-04] MEDS: polyethylene glycoL 3350 17 GM POWD.PACK PO SCH (08:46)
[2022-04-04] MEDS: PANTOPRAZOLE 40 MG/10 ML VIAL IVP SCH ×2 (08:46→20:22)
[2022-04-04] MEDS: hydrALAZINE HCL 50 MG TAB PO SCH ×3 (08:46→20:20)
[2022-04-04] MEDS: LOSARTAN 50 MG TAB PO SCH (08:46)
[2022-04-04] MEDS: MAGNESIUM OXIDE 400 MG TAB PO SCH ×2 (08:46→20:19)
[2022-04-04] MEDS: METOPROLOL SUCCINATE (ER) 100 MG TAB.ER.24H PO SCH (08:46)
[2022-04-04] MEDS: LORATADINE-PSEUDOEPH 5-120 MG 1 EACH TAB.ER.12H PO SCH (08:46)
[2022-04-04] MEDS: TAMSULOSIN 0.4 MG CAP.ER.24H PO SCH (08:47)
[2022-04-04] MEDS: POTASSIUM CHLORIDE ER 20 MEQ TAB.ER PO SCH ×2 (08:47→20:19)
[2022-04-04] MEDS: RIVAROXABAN 20 MG TAB PO SCH (08:47)
[2022-04-04] MEDS ORDERED: DEXTROSE 50% SYRINGE 50 ML IVP PRN ×2 (10:02)
[2022-04-04 10:34] VITALS: BMI 31.8
[2022-04-04 11:17] LABS: Magnesium 2.3 mg/dL (1.6-2.3); Phosphorus 3.9 mg/dL (2.5-4.5)
[2022-04-04 11:35] LABS: Glucose,Whole Blood 326 mg/dL (70-110)
[2022-04-04] MEDS: ACETAMINOPHEN TAB 325 MG TAB PO PRN (11:41)
[2022-04-04] MEDS: THIAMINE 100 MG TAB PO SCH (11:41)
[2022-04-04] MEDS: SODIUM CHLORIDE 0.9% 1,000 ML IV SCH (11:41)
[2022-04-04] MEDS: INSULIN ASPART (NovoLOG) 100 UNIT/ML VIAL SQ SCH ×3 (11:41→23:19)
--- NOTE | 2022-04-04 12:03 | P.PN ---
Subjective Progress Note Date: 04/04/22 Principal diagnosis: Shortness of breath. This is a pleasant 66-year-old male patient with a known history of alcoholism, atrial fibrillation, anticoagulated with Xarelto, nonsmoker, chronic liver disease, pancytopenia, previous alcohol withdrawal seizures, portal hypertension, esophageal variceal bleeding, diabetes mellitus, hyperlipidemia, hypertension. He was admitted here back on 03/21/2022 for shortness of breath and cough and congestion. If he was admitted to the regular medical floor and being followed by medicine and infectious disease. He had one blood culture positive for coag-negative staph. Today the patient developed significant shortness of breath, hypoxemia and went from 2 L up to 6 L high flow nasal cannula with O2 saturation still in the 80s. We're consulted for the same. He is seen in his room urgently. He is quite dyspneic. His O2 saturations 82% on 6 L nasal cannula. He is given Lasix 40 mg IVP 1. Ativan 1 mg IV. Chest x- ray reveals significant bilateral multifocal infiltrates/edema. He was placed on BiPAP 16/6 and 50% FiO2 and to be admitted to the intensive care unit. White count 5.8. Hemoglobin 13.0. D-dimer 0.44. The patient is anticoagulated with Xarelto. He's been on DuoNeb inhalations and Pulmicort inhalations. Patient was reevaluated today on 03/28/22, patient was seen yesterday and was transferred to the ICU. He is now in the ICU, he is receiving Lasix is also receiving antibiotics in the form of Zosyn. Patient is feeling much better, overnight he was on BiPAP 12/6/50%, presently on 5 L nasal cannula. His IV fluids at KVO, patient had good urine output overnight, and a chest x-ray is showing definite improvement nonetheless he continues to have interstitial infiltrates/edema bilaterally. But after improvement compared to the chest x- ray yesterday. And the patient had significant clinical improvement today compared to yesterday.WBC count today is 7.1 hemoglobin is 12.7 a left was are normal renal profile showed a BUN of 18 creatinine of 1.17.pro-calcitonin level is pending Patient was reevaluated today on 03/29/22, patient remains in the ICU, remains on 6 L high flow nasal cannula, O2 saturation is marginal between 88 and 91%. Clinically the patient is feeling better, breathing easier, he had few episodes of blood-tinged sputum. Patient is on Zosyn, chest x-ray continues to show bila teral interstitial infiltrates/edema. Not much of a change in the chest x-ray in the last 2 days. Pro-calcitonin level came back elevated at 0.55 his WBC count is 6.3 hemoglobin is 12.1, electrolytes are normal BUN is 22 creatinine is up to 1.3 to hence I cut down his dose of diuretics to once daily instead of twice daily. Patient remains on Xarelto. Progress note dated 03/30/2022. The patient was admitted back on March 21. The patient came in with heart failure, diastolic in nature, questionable aspiration pneumonia. He came to the intensive care unit, on March 27. He is a 66-year-old male seen today in room 253. He remains on BiPAP, with settings of 12/6 and 50%. His blood c ultures are showing coag-negative staph. He is on Zosyn. His heart rate is 115. His saturations are 94%. White count 5.8, hemoglobin 11.5, hematocrit 34.3, and platelet count 84,000. Sodium 138, potassium 4, chlorides 106, CO2 26, BUN 19, and creatinine 1.23. No chest x-ray was done today. Progress note dated 03/31/2022. The patient is again seen today in room 253. He is currently on BiPAP, with settings of 12/6 and 50%. He's getting saline at keep vein open. He is on Zosyn empirically. Microbiologic studies have been negative thus far. The patient had an uneventful night according to the nurses. White count is 6.6, hemoglobin 11.9, hematocrit 35, platelet count 88,000. Sodium 142, potassium 4.1, chlorides 110, CO2 26, anion gap 6, BUN 21, and creatinine 1.19. A chest x-ray shows a pattern of mixed interstitial and alveolar infiltrates. No pneumothorax is seen. Progress note dated 04/01/2022. The patient is again seen in room 253. This is a 66-year-old male with a h istory of acute on chronic respiratory failure. He is currently on BiPAP, with settings of 12/6 and 50%. The patient did test positive for coronavirus yesterday. He likely suffering from coronavirus associated pneumonia. The patient remains on saline at 20 mL an hour. He is receiving IV Decadron, xarelto, and Zosyn. We will check a pro-calcitonin level. White count is 7.9, hemoglobin 12.2, hematocrit 37.4, and platelet count 202,000. D-dimer is 16.02. Sodium 143, potassium 4.1, chlorides 110, CO2 24, with a BUN of 23 and a creatinine of 1.07. Microbiologic studies are negative. Chest x-ray continues to show diffuse bilateral infiltrates. Progress note dated 04/02/2022. 66-year-old male again seen in room 253. He has a history of acute on chronic respiratory failure, secondary to coronavirus associated pneumonia. His chest x-ray looks worse today by day. His oxygenation has improved. He's pretty much BiPAP dependent with settings of 12/6 and 60%. He is getting saline at KVO. Today we'll DC the Decadron in favor of Solu-Medrol. We'll also discontinue the Zosyn. I will call his sister, Dominique. The patient's getting saline at KVO. White count 11.4, hemoglobin 12.2, hematocrit 36.8, and platelet count 106,000. Sodium 141, potassium 4.4, chlorides 109, CO2 24, BUN 35, and creatinine 1.08. Microbiology is negative. Chest x-rays reviewed. Chest x-ray infiltrates are worse. Progress note dated 04/03/2022. 66-year-old male again seen in room 253. He has a history of acute on chronic respiratory failure, secondary to coronavirus associated pneumonia. The patient is currently maintained on BiPAP, with settings of 12/6, and 60%. Today, he will be on some AIRVO, at 60 L/m, and an FiO2 of 90%. The patient's getting saline at KVO. I attempted to talk to his siblings yesterday. I called both numbers, but was unable to get through or even leave a message. Today, the patient will get a PICC line, and we will likely start him on TPN. No new labs today. Chest x-rays are reviewed. Microbiologic studies have been negative thus far. Progress note dated 04/04/2022. 66-year-old male seen again in room 253. He has a history of acute on chronic r espiratory failure, secondary to coronavirus associated pneumonia. The patient continues on nonrebreather mask, and AIRVO, at 60 L/m and an FiO2 of 90%. The patient is also using BiPAP from time to time, with settings of 12/6 and 70%. The patient's also receiving saline, at keep vein open. I have attempted to contact the family members without much success. White count of 12.5, hemoglobin 12.8, hematocrit 40.3, and a platelet count of 150,000. Sodium 144, potassium 4.4, chlorides 111, CO2 25, BUN 43, and creatinine 1.03. Microbiologic studies are still negative. Chest x-ray continues to show diffuse bilateral infiltrates, with only minimal improvement. Objective - Vital Signs Vital signs: Vital Signs Temp 97.4 F L 04/04/22 08:00 Pulse 96 04/04/22 11:00 Resp 35 H 04/04/22 11:00 BP 136/64 04/04/22 11:00 Pulse Ox 88 L 04/04/22 11:00 FiO2 70 04/04/22 11:39 Intake & Output 04/03/22 04/04/22 04/04/22 18:59 06:59 18:59 Intake Total 1120 440 800 Output Total 2060 960 1185 Balance -940 -520 -385 Weight 90.1 kg 86.9 kg 86.9 kg Intake: IV 240 240 100 0.9 240 240 100 Oral 880 200 700 Output: Urine 2060 960 1185 Other: Voiding Method Indwelling Catheter Indwelling Catheter Indwelling Catheter # Bowel Movements 1 - Exam No acute distress, currently on AIRVO, and nonrebreather mask. The patient is mildly tachypneic. HEENT examination is grossly unremarkable. Neck supple. Full range of motion. No adenopathy thyromegaly or neck vein distention. Cardiovascular examination reveals regular rhythm rate. S1-S2 normal. No S3 or S4. No discernible murmur noted. Heart rate 99 bpm. Heart sounds are distant. Lungs reveal scattered bilateral rhonchi. No wheezes or crackles. Breath sounds equal bilaterally. Saturations are 89 %. Abdomen soft bowel sounds are heard. No masses or tenderness. Extremities are intact. No cyanosis clubbing or edema. Skin is without rash or lesion. Neurologic examination is brief but nonfocal. - Labs CBC & Chem 7: 04/04/22 05:57 04/04/22 05:57 Labs: Abnormal Lab Results - Last 24 Hours (Table) 04/03/22 04/03/22 04/04/22 Range/Units 14:52 14:52 05:57 WBC 14.0 H 12.5 H (3.8-10.6) k/uL RBC 3.61 L 3.90 L (4.30-5.90) m/uL Hgb 12.0 L 12.8 L (13.0-17.5) gm/dL Hct 36.8 L (39.0-53.0) % MCV 101.8 H 103.4 H (80.0-100.0) fL Plt Count 145 L (150-450) k/uL Neutrophils # 12.7 H 11.5 H (1.3-7.7) k/uL Lymphocytes # 0.4 L 0.3 L (1.0-4.8) k/uL Chloride 109 H (98-107) mmol/L BUN 45 H (9-20) mg/dL Glucose 381 H (74-99) mg/dL POC Glucose (mg/dL) (70-110) mg/dL Calcium 7.9 L (8.4-10.2) mg/dL Total Bilirubin (0.2-1.3) mg/dL AST (17-59) U/L ALT (4-49) U/L Alkaline Phosphatase (38-126) U/L Total Protein (6.3-8.2) g/dL Albumin (3.5-5.0) g/dL 04/04/22 04/04/22 Range/Units 05:57 11:33 WBC (3.8-10.6) k/uL RBC (4.30-5.90) m/uL Hgb (13.0-17.5) gm/dL Hct (39.0-53.0) % MCV (80.0-100.0) fL Plt Count (150-450) k/uL Neutrophils # (1.3-7.7) k/uL Lymphocytes # (1.0-4.8) k/uL Chloride 111 H (98-107) mmol/L BUN 43 H (9-20) mg/dL Glucose 306 H (74-99) mg/dL POC Glucose (mg/dL) 326 H (70-110) mg/dL Calcium (8.4-10.2) mg/dL Total Bilirubin 1.5 H (0.2-1.3) mg/dL AST 78 H (17-59) U/L ALT 55 H (4-49) U/L Alkaline Phosphatase 236 H (38-126) U/L Total Protein 6.2 L (6.3-8.2) g/dL Albumin 2.9 L (3.5-5.0) g/dL Microbiology - Last 24 Hours (Table) 04/01/22 06:44 Blood Culture - Preliminary Blood No Growth after 72 hours 03/29/22 03:09 Blood Culture - Final Blood No Growth after 144 hours Assessment and Plan Assessment: Acute hypoxemic respiratory failure, secondary to suspected aspiration, possible underlying pulmonary edema, as well as coronavirus associated pneumonia. Chest pain, acute coronary syndrome, ruled out. Diastolic congestive heart failure. Chronic alcohol abuse. Elevated liver function, secondary to chronic alcohol abuse. Alcoholic liver disease. History of chronic atrial fibrillation. History of pulmonary embolism. Acute kidney injury. Bleeding esophageal varices. History of chronic anxiety and depression. History of hypertension. History of alcoholic seizures. History of TIA. Plan: Plan dated 03/30/2022. The patient remains on Zosyn empirically. Blood cultures are thus far negative. The patient's labs, x-rays, and medications are reviewed. He remains on BiPAP, with settings of 12/6 and 50%. Heart rate is 115. Saturations are 94%. We wi ll continue to follow make recommendations along the way. Prognosis is guarded. Plan dated 03/31/2022. The patient remains on Zosyn empirically. Blood cultures and other cultures are currently negative. The patient spends most of the time on BiPAP, but sometimes on high flow oxygen therapy. Labs, x-rays, and medications are reviewed. We will continue to follow. The patient had an uneventful night according to the nurse last night. Prognosis is guarded. Plan dated 04/01/2022. The patient remains on Zosyn empirically. Yesterday, he did test positive for coronavirus. The infiltrates that we are seeing on x-ray, name fact be related to coronavirus pneumonia. Check a pro-calcitonin level. Remains on BiPAP. He is getting saline at 20 mL an hour. Prognosis is certainly guarded. We will continue to follow and make recommendations along the way. Labs, x-rays, and medications are all reviewed. Plan dated 04/02/2022. The patient's Zosyn will be discontinued. He was getting it empirically. Labs, x-rays, and medications are all reviewed. We'll discontinue the Decadron in f avor of Solu-Medrol. He is getting saline at KVO. Chest x-ray is a bit worse in my opinion. His oxygen requirements have really not improved at all. He is on all appropriate other medications. The next that would be intubation and mechanical ventilation. I'm going to recheck to his sister, Dominique. Prognosis is certainly guarded. Plan dated 04/03/2022. I attempted to talk to the brother and sister. I called both numbers, and was not able to get through or even leave a message. The nurse will try again. Labs, x-rays, and medications are reviewed. His overall prognosis remains guard ed. Chest x-ray shows diffuse bilateral infiltrates, which have early not improved very much. The patient was changed from IV Decadron to Solu-Medrol. We will continue to follow make recommendations along the way. Plan dated 04/04/2022. I have attempted to contact the brother and sister without success. The patient continues to do poorly. He is only able spend a few minutes off of BiPAP. Is currently using the nonrebreather mask, along with AIRVO. Labs, x-rays, and medications are all reviewed. Prognosis is certainly guarded. We will continue to follow and make recommendations along the way. Time with Patient: Less than 30
[2022-04-04] MEDS ORDERED: INSULIN ASPART (NovoLOG) 100 UNIT/ML VIAL SQ SCH (12:30)
[2022-04-04] MEDS ORDERED: FAT EMULSION 20% 250 ML IV SCH (14:00)
[2022-04-04] MEDS ORDERED: MVI, ADULT NO.4 WITH VIT K 10 ML, TRACE (CONC-1ML/DOSE) 1 ML, SODIUM ACETATE 30 MEQ, PO... IV ONE ×6 (14:00)
[2022-04-04] MEDS: DEXMEDETOMIDINE/0.9% NACL(PMX) 400 MCG in EMPTY BAG 1 BAG IV SCH ×2 (16:04→23:28)
[2022-04-04 17:27] LABS: Glucose,Whole Blood 374 mg/dL (70-110)
[2022-04-04 23:07] LABS: Glucose,Whole Blood 314 mg/dL (70-110)
[2022-04-05] MEDS: LORazepam 2 MG/ML INJ IV PRN ×2 (00:21→19:58)
[2022-04-05] MEDS: DEXMEDETOMIDINE/0.9% NACL(PMX) 400 MCG in EMPTY BAG 1 BAG IV SCH ×3 (05:26→19:58)
[2022-04-05 06:22] LABS: Ionized Calcium 5.2 mg/dL (4.5-5.3)
[2022-04-05 06:35] LABS: Albumin 2.3 g/dL (3.5-5.0); Calcium 7.9 mg/dL (8.4-10.2); Magnesium 2.4 mg/dL (1.6-2.3); Phosphorus 4.2 mg/dL (2.5-4.5); Potassium 4.7 mmol/L (3.5-5.1); Total Bilirubin 1.2 mg/dL (0.2-1.3); Total Protein 5.2 g/dL (6.3-8.2)
[2022-04-05] MEDS: methylPREDNISolone SOD SUCCI 125 MG/2 ML VIAL IV SCH ×4 (06:40→23:56)
[2022-04-05] MEDS: INSULIN ASPART (NovoLOG) 100 UNIT/ML VIAL SQ SCH ×3 (06:40→17:28)
[2022-04-05] MEDS: SUCRALFATE 1 GM TAB PO SCH ×3 (07:41→17:29)
[2022-04-05] MEDS: FLUTICASONE 220 MCG INHALER INHALATION SCH ×2 (08:12→21:02)
[2022-04-05] MEDS: ALBUTEROL HFA INHALER INHALATION SCH ×4 (08:12→21:01)
[2022-04-05] MEDS: PANTOPRAZOLE 40 MG/10 ML VIAL IVP SCH ×2 (08:49→20:50)
[2022-04-05] MEDS: FUROSEMIDE 10 MG/ML 4 ML VIAL IV SCH (08:49)
[2022-04-05] MEDS ORDERED: DEXTROSE 5% IN WATER 1,000 ML IV ONE (10:10)
[2022-04-05] MEDS: METOPROLOL SUCCINATE (ER) 100 MG TAB.ER.24H PO SCH (10:14)
[2022-04-05] MEDS: hydrALAZINE HCL 50 MG TAB PO SCH ×3 (10:14→22:07)
[2022-04-05] MEDS: ATORVASTATIN 40 MG TAB PO SCH (10:14)
[2022-04-05] MEDS: LOSARTAN 50 MG TAB PO SCH (10:14)
[2022-04-05] MEDS: amLODIPine 10 MG TAB PO SCH (10:14)
[2022-04-05] MEDS: LORATADINE-PSEUDOEPH 5-120 MG 1 EACH TAB.ER.12H PO SCH (10:14)
[2022-04-05] MEDS: MAGNESIUM OXIDE 400 MG TAB PO SCH ×2 (10:14→20:47)
[2022-04-05] MEDS: polyethylene glycoL 3350 17 GM POWD.PACK PO SCH (10:15)
[2022-04-05] MEDS: TAMSULOSIN 0.4 MG CAP.ER.24H PO SCH (10:15)
[2022-04-05] MEDS: POTASSIUM CHLORIDE ER 20 MEQ TAB.ER PO SCH ×2 (10:15→20:47)
[2022-04-05] MEDS: RIVAROXABAN 20 MG TAB PO SCH (10:15)
[2022-04-05] MEDS: SODIUM CHLORIDE 0.9% 1,000 ML IV SCH (10:22)
[2022-04-05 11:18] LABS: Glucose,Whole Blood 269 mg/dL (70-110)
--- NOTE | 2022-04-05 11:45 | P.PN ---
Subjective Progress Note Date: 04/05/22 Principal diagnosis: Shortness of breath. This is a pleasant 66-year-old male patient with a known history of alcoholism, atrial fibrillation, anticoagulated with Xarelto, nonsmoker, chronic liver disease, pancytopenia, previous alcohol withdrawal seizures, portal hypertension, esophageal variceal bleeding, diabetes mellitus, hyperlipidemia, hypertension. He was admitted here back on 03/21/2022 for shortness of breath and cough and congestion. If he was admitted to the regular medical floor and being followed by medicine and infectious disease. He had one blood culture positive for coag-negative staph. Today the patient developed significant shortness of breath, hypoxemia and went from 2 L up to 6 L high flow nasal cannula with O2 saturation still in the 80s. We're consulted for the same. He is seen in his room urgently. He is quite dyspneic. His O2 saturations 82% on 6 L nasal cannula. He is given Lasix 40 mg IVP 1. Ativan 1 mg IV. Chest x- ray reveals significant bilateral multifocal infiltrates/edema. He was placed on BiPAP 16/6 and 50% FiO2 and to be admitted to the intensive care unit. White count 5.8. Hemoglobin 13.0. D-dimer 0.44. The patient is anticoagulated with Xarelto. He's been on DuoNeb inhalations and Pulmicort inhalations. Patient was reevaluated today on 03/28/22, patient was seen yesterday and was transferred to the ICU. He is now in the ICU, he is receiving Lasix is also receiving antibiotics in the form of Zosyn. Patient is feeling much better, overnight he was on BiPAP 12/6/50%, presently on 5 L nasal cannula. His IV fluids at KVO, patient had good urine output overnight, and a chest x-ray is showing definite improvement nonetheless he continues to have interstitial infiltrates/edema bilaterally. But after improvement compared to the chest x- ray yesterday. And the patient had significant clinical improvement today compared to yesterday.WBC count today is 7.1 hemoglobin is 12.7 a left was are normal renal profile showed a BUN of 18 creatinine of 1.17.pro-calcitonin level is pending Patient was reevaluated today on 03/29/22, patient remains in the ICU, remains on 6 L high flow nasal cannula, O2 saturation is marginal between 88 and 91%. Clinically the patient is feeling better, breathing easier, he had few episodes of blood-tinged sputum. Patient is on Zosyn, chest x-ray continues to show bila teral interstitial infiltrates/edema. Not much of a change in the chest x-ray in the last 2 days. Pro-calcitonin level came back elevated at 0.55 his WBC count is 6.3 hemoglobin is 12.1, electrolytes are normal BUN is 22 creatinine is up to 1.3 to hence I cut down his dose of diuretics to once daily instead of twice daily. Patient remains on Xarelto. Progress note dated 03/30/2022. The patient was admitted back on March 21. The patient came in with heart failure, diastolic in nature, questionable aspiration pneumonia. He came to the intensive care unit, on March 27. He is a 66-year-old male seen today in room 253. He remains on BiPAP, with settings of 12/6 and 50%. His blood c ultures are showing coag-negative staph. He is on Zosyn. His heart rate is 115. His saturations are 94%. White count 5.8, hemoglobin 11.5, hematocrit 34.3, and platelet count 84,000. Sodium 138, potassium 4, chlorides 106, CO2 26, BUN 19, and creatinine 1.23. No chest x-ray was done today. Progress note dated 03/31/2022. The patient is again seen today in room 253. He is currently on BiPAP, with settings of 12/6 and 50%. He's getting saline at keep vein open. He is on Zosyn empirically. Microbiologic studies have been negative thus far. The patient had an uneventful night according to the nurses. White count is 6.6, hemoglobin 11.9, hematocrit 35, platelet count 88,000. Sodium 142, potassium 4.1, chlorides 110, CO2 26, anion gap 6, BUN 21, and creatinine 1.19. A chest x-ray shows a pattern of mixed interstitial and alveolar infiltrates. No pneumothorax is seen. Progress note dated 04/01/2022. The patient is again seen in room 253. This is a 66-year-old male with a h istory of acute on chronic respiratory failure. He is currently on BiPAP, with settings of 12/6 and 50%. The patient did test positive for coronavirus yesterday. He likely suffering from coronavirus associated pneumonia. The patient remains on saline at 20 mL an hour. He is receiving IV Decadron, xarelto, and Zosyn. We will check a pro-calcitonin level. White count is 7.9, hemoglobin 12.2, hematocrit 37.4, and platelet count 202,000. D-dimer is 16.02. Sodium 143, potassium 4.1, chlorides 110, CO2 24, with a BUN of 23 and a creatinine of 1.07. Microbiologic studies are negative. Chest x-ray continues to show diffuse bilateral infiltrates. Progress note dated 04/02/2022. 66-year-old male again seen in room 253. He has a history of acute on chronic respiratory failure, secondary to coronavirus associated pneumonia. His chest x-ray looks worse today by day. His oxygenation has improved. He's pretty much BiPAP dependent with settings of 12/6 and 60%. He is getting saline at KVO. Today we'll DC the Decadron in favor of Solu-Medrol. We'll also discontinue the Zosyn. I will call his sister, Dominique. The patient's getting saline at KVO. White count 11.4, hemoglobin 12.2, hematocrit 36.8, and platelet count 106,000. Sodium 141, potassium 4.4, chlorides 109, CO2 24, BUN 35, and creatinine 1.08. Microbiology is negative. Chest x-rays reviewed. Chest x-ray infiltrates are worse. Progress note dated 04/03/2022. 66-year-old male again seen in room 253. He has a history of acute on chronic respiratory failure, secondary to coronavirus associated pneumonia. The patient is currently maintained on BiPAP, with settings of 12/6, and 60%. Today, he will be on some AIRVO, at 60 L/m, and an FiO2 of 90%. The patient's getting saline at KVO. I attempted to talk to his siblings yesterday. I called both numbers, but was unable to get through or even leave a message. Today, the patient will get a PICC line, and we will likely start him on TPN. No new labs today. Chest x-rays are reviewed. Microbiologic studies have been negative thus far. Progress note dated 04/04/2022. 66-year-old male seen again in room 253. He has a history of acute on chronic r espiratory failure, secondary to coronavirus associated pneumonia. The patient continues on nonrebreather mask, and AIRVO, at 60 L/m and an FiO2 of 90%. The patient is also using BiPAP from time to time, with settings of 12/6 and 70%. The patient's also receiving saline, at keep vein open. I have attempted to contact the family members without much success. White count of 12.5, hemoglobin 12.8, hematocrit 40.3, and a platelet count of 150,000. Sodium 144, potassium 4.4, chlorides 111, CO2 25, BUN 43, and creatinine 1.03. Microbiologic studies are still negative. Chest x-ray continues to show diffuse bilateral infiltrates, with only minimal improvement. Progress note dated 04/05/2022. 66-year-old male again seen in room 253. He has a history of respiratory failure secondary to coronavirus associated pneumonia. The patient continues on BiPAP, with settings of 12/6 and 100%. We added Precedex at 0.7 mcg/kg/h, for agitation. He is getting D5W at 50 mL an hour. The patient's also getting TPN at 30 mL an hour, with a goal of 60 mL an hour. Family members were able to come in yesterday, and make the patient a DO NOT RESUSCITATE patient. I told the nurse Ej, to try to get the patient off of dexmedetomidine, and instead use Ativan IV 1 mg every 4 hours and Haldol 4 milligrams every 4 hours as needed. Sodium 146, potassium 4.7, chlorides 1:15, CO2 31, BUN 58, creatinine 1.23. Ionized calcium was 5.2. Triglycerides 147. Alkaline phosphatase 209. AST is 65. No chest x-ray today. Objective - Vital Signs Vital signs: Vital Signs Temp 97.0 F L 04/05/22 08:00 Pulse 79 04/05/22 11:00 Resp 35 H 04/05/22 11:00 BP 99/71 04/05/22 11:00 Pulse Ox 91 L 04/05/22 11:00 FiO2 100 04/05/22 11:29 Intake & Output 04/04/22 04/05/22 04/05/22 18:59 06:59 18:59 Intake Total 1262.846 905.096 344.006 Output Total 5 1285 1075 Balance -682.154 -379.904 -730.994 Weight 86.9 kg 88.4 kg Intake: IV 240 260 140 0.9 240 260 40 Dextrose 5% in Water 1, 100 000 ml @ 50 mls/hr IV . Q20H [facility] Rx#:[id number] Intake, IV Titration 14.846 135.096 84.006 Amount Dexmedetomidine/0.9% NaCl 14.846 135.096 84.006 (Pmx) 400 mcg In Empty Bag 1 bag @ 0.2 MCG/KG/HR 4.345 mls/hr IV .Q23H1M COUNTS INCLUDE 234 BEDS AT THE [facility] Rx#:[id number] Oral 700 TPN/PPN 180 390 120 TPN 180 390 120 Lipid 128 120 Lipids 128 120 Output: Urine 5 1285 1075 Other: Voiding Method Indwelling Catheter Indwelling Catheter Indwelling Catheter - Exam No acute distress, currently on BiPAP, at 100%. HEENT examination is grossly unremarkable. Neck supple. Full range of motion. No adenopathy thyromegaly or neck vein distention. Cardiovascular examination reveals regular rhythm rate. S1-S2 normal. No S3 or S4. No discernible murmur noted. Heart rate 79 bpm. Heart sounds are distant. Lungs reveal scattered bilateral rhonchi. No wheezes or crackles. Breath sounds equal bilaterally. Saturations are 90 %. Abdomen soft bowel sounds are heard. No masses or tenderness. Extremities are intact. No cyanosis clubbing or edema. Skin is without rash or lesion. Neurologic examination is difficult to assess, because the patient is currently sedated with a dexmedetomidine. - Labs CBC & Chem 7: 04/04/22 05:57 04/05/22 05:38 Labs: Abnormal Lab Results - Last 24 Hours (Table) 04/04/22 04/04/22 04/04/22 Range/Units 05:57 17:25 23:05 Sodium (137-145) mmol/L Chloride (98-107) mmol/L Carbon Dioxide (22-30) mmol/L BUN (9-20) mg/dL Glucose (74-99) mg/dL POC Glucose (mg/dL) 374 H 314 H (70-110) mg/dL Hemoglobin A1c 6.7 H (0.0-6.0) % Calcium (8.4-10.2) mg/dL Magnesium (1.6-2.3) mg/dL AST (17-59) U/L Alkaline Phosphatase (38-126) U/L Total Protein (6.3-8.2) g/dL Albumin (3.5-5.0) g/dL 04/05/22 04/05/22 Range/Units 05:38 11:16 Sodium 146 H (137-145) mmol/L Chloride 115 H (98-107) mmol/L Carbon Dioxide 31 H (22-30) mmol/L BUN 58 H (9-20) mg/dL Glucose 295 H (74-99) mg/dL POC Glucose (mg/dL) 269 H (70-110) mg/dL Hemoglobin A1c (0.0-6.0) % Calcium 7.9 L (8.4-10.2) mg/dL Magnesium 2.4 H (1.6-2.3) mg/dL AST 65 H (17-59) U/L Alkaline Phosphatase 209 H (38-126) U/L Total Protein 5.2 L (6.3-8.2) g/dL Albumin 2.3 L (3.5-5.0) g/dL Microbiology - Last 24 Hours (Table) 04/01/22 06:44 Blood Culture - Preliminary Blood No Growth after 96 hours Assessment and Plan Assessment: Acute hypoxemic respiratory failure, secondary to suspected aspiration, possible underlying pulmonary edema, as well as coronavirus associated pneumonia. Chest pain, acute coronary syndrome, ruled out. Diastolic congestive heart failure. Chronic alcohol abuse. Elevated liver function, secondary to chronic alcohol abuse. Alcoholic liver disease. History of chronic atrial fibrillation. History of pulmonary embolism. Acute kidney injury. Bleeding esophageal varices. History of chronic anxiety and depression. History of hypertension. History of alcoholic seizures. History of TIA. Plan: Plan dated 03/30/2022. The patient remains on Zosyn empirically. Blood cultures are thus far negative. The patient's labs, x-rays, and medications are reviewed. He remains on BiPAP, with settings of 12/6 and 50%. Heart rate is 115. Saturations are 94%. We will continue to follow make recommendations along the way. Prognosis is guarded. Plan dated 03/31/2022. The patient remains on Zosyn empirically. Blood cultures and other cultures are currently negative. The patient spends most of the time on BiPAP, but sometimes on high flow oxygen therapy. Labs, x-rays, and medications are reviewed. We will continue to follow. The patient had an uneventful night according to the nurse last night. Prognosis is guarded. Plan dated 04/01/2022. The patient remains on Zosyn empirically. Yesterday, he did test positive for coronavirus. The infiltrates that we are seeing on x-ray, name fact be related to coronavirus pneumonia. Check a pro-calcitonin level. Remains on BiPAP. He is getting saline at 20 mL an hour. Prognosis is certainly guarded. We will continue to follow and make recommendations along the way. Labs, x-rays, and medications are all reviewed. Plan dated 04/02/2022. The patient's Zosyn will be discontinued. He was getting it empirically. Labs, x-rays, and medications are all reviewed. We'll discontinue the Decadron in favor of Solu-Medrol. He is getting saline at KVO. Chest x-ray is a bit worse in my opinion. His oxygen requirements have really not improved at all. He is on all appropriate other medications. The next that would be intubation and mechanical ventilation. I'm going to recheck to his sister, Dominique. Prognosis is certainly guarded. Plan dated 04/03/2022. I attempted to talk to the brother and sister. I called both numbers, and was not able to get through or even leave a message. The nurse will try again. L abs, x-rays, and medications are reviewed. His overall prognosis remains guarded. Chest x-ray shows diffuse bilateral infiltrates, which have early not improved very much. The patient was changed from IV Decadron to Solu-Medrol. We will continue to follow make recommendations along the way. Plan dated 04/04/2022. I have attempted to contact the brother and sister without success. The patient continues to do poorly. He is only able spend a few minutes off of BiPAP. Is currently using the nonrebreather mask, along with AIRVO. Labs, x-rays, and medications are all reviewed. Prognosis is certainly guarded. We will continue to follow and make recommendations along the way. Plan dated 04/05/2022. Family members were able to come see the patient yesterday, and a nurse talk to the family members about CODE STATUS. The patient is now a DO NOT RESUSCITATE patient. I think that is appropriate. The patient is on BiPAP, at 100%. She's getting dexmedetomidine for his agitation. We will attempt to substitute in Ativan and Haldol every 4 hours to see if we can wean him off the dex medetomidine. Labs, x-rays, and medications are reviewed. The patient's overall prognosis is poor. He has not really made much improvement or any improvement over the last for 5 days. Time with Patient: Less than 30
[2022-04-05] MEDS: THIAMINE 100 MG TAB PO SCH (11:48)
[2022-04-05] MEDS: HALOPERIDOL LACTATE 5 MG/ML 1 ML VIAL IVP PRN (16:24)
[2022-04-05 17:26] LABS: Glucose,Whole Blood 393 mg/dL (70-110)
[2022-04-06 00:04] LABS: Glucose,Whole Blood 413 mg/dL (70-110)
[2022-04-06] MEDS: INSULIN ASPART (NovoLOG) 100 UNIT/ML VIAL SQ SCH ×3 (00:09→12:39)
[2022-04-06] MEDS: LORazepam 2 MG/ML INJ IV PRN ×3 (01:45→18:57)
[2022-04-06] MEDS: methylPREDNISolone SOD SUCCI 125 MG/2 ML VIAL IV SCH ×2 (05:34→12:39)
[2022-04-06 05:40] LABS: Glucose,Whole Blood 422 mg/dL (70-110)
[2022-04-06] MEDS: SUCRALFATE 1 GM TAB PO SCH ×3 (06:38→15:51)
[2022-04-06] MEDS: DEXMEDETOMIDINE/0.9% NACL(PMX) 400 MCG in EMPTY BAG 1 BAG IV SCH ×2 (06:55→13:59)
--- NOTE | 2022-04-06 07:59 | XR ---
EXAMINATION TYPE: XR chest 1V portable DATE OF EXAM: 04/06/2022 COMPARISON: 04/04/2022 HISTORY: Shortness of breath TECHNIQUE: Single frontal view of the chest is obtained. FINDINGS: Leftward patient rotation alters normal cardiac and mediastinal contours. Left PICC tip at the cavoatrial junction. Heart upper limits of normal in size. Diffuse bilateral hazy interstitial o pacities, left greater than right. There may be slight improving aeration on the right but extensive opacities persist. No pleural effusion. IMPRESSION: Abnormal stable predominantly interstitial infiltrates diffusely unchanged from prior ex am.
[2022-04-06] MEDS: ALBUTEROL HFA INHALER INHALATION SCH ×3 (08:22→17:05)
[2022-04-06] MEDS: FLUTICASONE 220 MCG INHALER INHALATION SCH (08:23)
--- NOTE | 2022-04-06 09:08 | P.PN ---
Subjective Progress Note Date: 04/06/22 On 04/06/2022, this 66-year-old male patient is being seen for a follow-up. The patient is known to have several comorbidities including alcoholism, history of alcohol withdrawal seizures, portal hypertension chronic liver disease, diabetes mellitus, hypertension hyperlipidemia and chronic atrial fibrillation with intermittent anticoagulants. The patient's chronic liver disease and pancytopenia. The patient was hospitalized around 04/05/2024 hypoxic respiratory failure. Initially he was negative for Covid 19 and subsequently testing came back positive. Currently he is being treated for a combination of aspiration pneumonia and Covid 19 pneumonia with secondary hypoxic respiratory failure. During the course of his illness, the patient was started on broad- spectrum antibiotics. The patient has also utilized TPN for nutritional support. This morning, he remains on TPN at pressures of 12/6 cm of water with FiO2 100%. The patient is still generating adequate tidal volumes above 500 mL in his minute ventilation on a mechanical ventilator is 14.0. He is also Precedex to control his agitation and anxiety and maintain synchrony with a mechanical ventilator. The chest x-ray showing smaller lung volumes with diffuse bilateral pulmonary infiltrates, essentially unchanged since April 04. He is unable to eat because of his strict BiPAP dependent. Based on that, the patient was also started on TPN for nutritional support which is currently running at 30 mL an hour. Is a DNR/DNI CODE STATUS. In summary, he is still hypoxic respiratory failure. Blood work from today still pending. His inflammatory markers have not been checked recently. Since initiation of TPN, blood sugars are quite elevated. His LFTs show an AST of 65 ALP of 47 and alkaline phosphatase of 219. Most recent sodium level from yesterday was at 146. Blood cultures are negative.The most recent d-dimer from 04/01/2022 is 16.2. The patient also was started on D5 water for some mild component of hypernatremia of 146 from yesterday. He D5 water is running at the rate of 50 mL an hour and this was discontinued as the patient's blood sugar was quite elevated in combination with the TPN and the steroids. The patient is quite obtunded. He is resting comfortably while being on Precedex and BiPAP. W henever he wakes up, he states that he wants to . He is alert and oriented 1. Objective - Vital Signs Vital signs: Vital Signs Temp 97.8 F 04/06/22 04:00 Pulse 108 H 04/06/22 07:00 Resp 15 04/06/22 07:00 BP 111/70 04/06/22 07:00 Pulse Ox 95 04/06/22 07:00 FiO2 100 04/06/22 07:16 Intake & Output 04/05/22 04/06/22 04/06/22 18:59 06:59 18:59 Intake Total 2557.037 7746.525 Output Total 2125 1375 Balance -993.127 806.525 Weight 84.8 kg Intake: IV 490 300 0.9 40 Dextrose 5% in Water 1, 450 300 000 ml @ 50 mls/hr IV . Q20H [facility] Rx#:[id number] Intake, IV Titration 125.924 7165.525 Amount Dexmedetomidine/0.9% NaCl 136.873 88.608 (Pmx) 400 mcg In Empty Bag 1 bag @ 0.2 MCG/KG/HR 4.345 mls/hr IV .Q23H1M [facility] Rx#:[id number] Sodium Acetate 14 meq 947.917 Calcium Gluconate 1 gm In Amino Acids 5 %/Dextrose 20 % 1,000 ml @ 65 mls/ hr IV .BY DURATION [facility] Rx #:[id number] TPN/PPN 505 845 TPN 505 845 Output: Urine 2125 1375 Other: Voiding Method Indwelling Catheter Indwelling Catheter - Exam No acute distress, currently on BiPAP, at 100%., The patient is alert and oriented 1. The patient is sedated with Precedex at 0.1 mcg/kg/m. The patient is on a BiPAP and the patient is quite suggest the BiPAP machine. Not using extra muscles of breathing. He was resting comfortably and sleeping at the time of my evaluation. He is arousable. HEENT examination is grossly unremarkable. Neck supple. Full range of motion. No adenopathy thyromegaly or neck vein distention. Cardiovascular examination reveals regular rhythm rate. S1-S2 normal. No S3 or S4. No discernible murmur noted. Heart sounds are distant. Lungs reveal scattered bilateral rhonchi. No wheezes or crackles. Breath sounds equal bilaterally. Saturations are 90 %. The patient has crackles in the mid and lower lung guadalupe bilaterally. Abdomen soft bowel sounds are heard. No masses or tenderness. Extremities are intact. No cyanosis clubbing or edema. Skin is without rash or lesion. Neurologic examination is difficult to assess, because the patient is currently sedated with a dexmedetomidine. - Labs CBC & Chem 7: 04/04/22 05:57 04/05/22 05:38 Labs: Abnormal Lab Results - Last 24 Hours (Table) 04/05/22 04/05/22 04/06/22 Range/Units 11:16 17:24 00:03 POC Glucose (mg/dL) 269 H 393 H 413 H (70-110) mg/dL 04/06/22 Range/Units 05:38 POC Glucose (mg/dL) 422 H (70-110) mg/dL Microbiology - Last 24 Hours (Table) 04/01/22 06:44 Blood Culture - Preliminary Blood No Growth after 96 hours Assessment and Plan Plan: Acute hypoxemic respiratory failure, secondary to suspected aspiration, possible underlying pulmonary edema, as well as coronavirus associated pneumonia. Based on my evaluation, the predominant cause for this hypoxic respiratory failure seems to be Covid 19 as the patient has diffuse but the pulmonary infiltrates interstitial and some alveolar with smaller lung volumes and his picture is consistent with Covid 19 related pneumonia possibly ARDS. He is currently on BiPAP. He is on steroids. He is also anticoagulated with Xarelto time. D- dimer was elevated. The patient is a DNR/DNI CODE STATUS. Diastolic congestive heart failure. Chronic alcohol abuse. Elevated liver function, secondary to chronic alcohol abuse. Alcoholic liver disease. History of chronic atrial fibrillation. the patient's current rhythm is sinus Elevated blood sugar due to a combination of TPN, D5 water and steroids History of pulmonary embolism. Acute kidney injury, creatinine was at 1.2 from yesterday Bleeding esophageal varices. History of chronic anxiety and depression. History of hypertension. History of alcoholic seizures. History of TIA. Plan: Continue BiPAP at the same settings continue Precedex to control agitation maintain synchrony with the BiPAP machine Continue anticoagulation with Xarelto continue steroids Repeat pro calcitonin level as the last level from 04/01/2022 was 3.15 and consider addition of broad-spectrum antibiotics and the level is high and or on the rise We'll need to recheck inflammatory markers including LDH and CRP and D dimers We will need to add Levemir insulin for tighter blood sugar control. He'll be started on 30 units along with a sliding scale coverage Discontinue the D5 water Awaiting labs from today including CBC and complete metabolic profile Continue CPAP for nutritional support May consider insertion of an NG tube as the patient is quite obtunded and lethargic and he may not be able to take pills in the future Very poor prognosis based on the above-mentioned comorbidities. DNR/DNI CODE STATUS. His evaluation was done in more than 30 minutes. This is a critical care evaluation. Time with Patient: Greater than 30
[2022-04-06 09:11] LABS: Albumin 2.4 g/dL (3.5-5.0); Calcium 8.1 mg/dL (8.4-10.2); Magnesium 2.6 mg/dL (1.6-2.3); Phosphorus 3.4 mg/dL (2.5-4.5); Potassium 4.4 mmol/L (3.5-5.1); Total Bilirubin 0.9 mg/dL (0.2-1.3); Total Protein 5.4 g/dL (6.3-8.2)
[2022-04-06] MEDS ORDERED: INSULIN DETEMIR (LEVEMIR) 100 UNIT/ML SYR SQ SCH (09:15)
[2022-04-06 09:18] LABS: Basophils % (A) 0 %; Eosinophils % (A) 0 %; HCT 37.8 % (39.0-53.0); HGB 11.8 gm/dL (13.0-17.5); Hypochromasia Moderate; Lymphocytes # (A) 0.2 k/uL (1.0-4.8); Lymphocytes % (A) 2 %; MCH 32.7 pg (25.0-35.0); MCHC 31.3 g/dL (31.0-37.0); MCV 104.7 fL (80.0-100.0); Macrocytosis Moderate; Mean Platelet Volume 12.3; Monocytes # (A) 0.4 k/uL (0-1.0); Monocytes % (A) 4 %; Neutrophils # (A) 8.7 k/uL (1.3-7.7); Neutrophils % (A) 92 %; RBC 3.61 m/uL (4.30-5.90); RDW 14.5 % (11.5-15.5); WBC 9.4 k/uL (3.8-10.6)
[2022-04-06] MEDS: LOSARTAN 50 MG TAB PO SCH (09:25)
[2022-04-06] MEDS: hydrALAZINE HCL 50 MG TAB PO SCH ×2 (09:25→15:51)
[2022-04-06] MEDS: amLODIPine 10 MG TAB PO SCH (09:25)
[2022-04-06] MEDS: RIVAROXABAN 20 MG TAB PO SCH (09:26)
[2022-04-06] MEDS: TAMSULOSIN 0.4 MG CAP.ER.24H PO SCH (09:26)
[2022-04-06] MEDS: MAGNESIUM OXIDE 400 MG TAB PO SCH (09:26)
[2022-04-06] MEDS: METOPROLOL SUCCINATE (ER) 100 MG TAB.ER.24H PO SCH (09:26)
[2022-04-06] MEDS: polyethylene glycoL 3350 17 GM POWD.PACK PO SCH (09:26)
[2022-04-06] MEDS: POTASSIUM CHLORIDE ER 20 MEQ TAB.ER PO SCH (09:26)
[2022-04-06] MEDS: FUROSEMIDE 10 MG/ML 4 ML VIAL IV SCH (10:18)
[2022-04-06] MEDS: PANTOPRAZOLE 40 MG/10 ML VIAL IVP SCH (10:18)
[2022-04-06 10:34] LABS: Platelet Count 119 k/uL (150-450)
[2022-04-06] MEDS ORDERED: ENOXAPARIN 80 MG/0.8 ML SYRINGE SQ SCH (10:45)
[2022-04-06 11:25] LABS: Glucose,Whole Blood 368 mg/dL (70-110)
[2022-04-06] MEDS: THIAMINE 100 MG TAB PO SCH (11:32)
[2022-04-06] MEDS: HALOPERIDOL LACTATE 5 MG/ML 1 ML VIAL IVP PRN (11:32)
--- NOTE | 2022-04-06 15:13 | P.PN ---
Progress Note - Text Progress Note Date: 04/06/22 Patient sedated. Attempted to call his sister, Karen. No answer. Left voicemail. Awaiting call back. Attempted to call the patient's other sister, Dominique. No answer. Daniella Melendez [facility] Palliative Care/Urology [facility] [id number] Email: [email or web address]
[2022-04-06] MEDS ORDERED: MORPHINE SULFATE (100 MG/2 ML) 100 MG in SODIUM CHLORIDE 0.9% 100 ML IV SCH (16:15)
[2022-04-06 18:33] VITALS: BP 118/71
[2022-04-06 19:21] VITALS: PULSE 114
[2022-04-06 19:40] VITALS: RESP 12; TEMP 97.4
--- NOTE | 2022-04-07 08:04 | PN ---
PROGRESS NOTE DATE OF SERVICE: 04/03/2022 In the intensive care unit. CHIEF COMPLAINT: Adult respiratory distress syndrome. HISTORY OF PRESENT ILLNESS: This gentleman is not doing well. His shortness of breath is becoming little bit worse each day. He denies any chest pain. PHYSICAL EXAMINATION: LUNGS: Breath sounds are heard throughout with vesicular rales posteriorly. CARDIAC: Normal. VITAL SIGNS: Blood pressure is normal. IMPRESSION: 1. Adult respiratory distress syndrome. 2. COVID related pneumonia. 3. Alcoholism. PLAN: Continue with ICU support. If he does not improve, he may require intubation. MMODL / IJN: [id number] /
--- NOTE | 2022-04-07 08:15 | PN ---
PROGRESS NOTE DATE OF SERVICE: 04/04/2022 CHIEF COMPLAINT: Acute respiratory distress syndrome. HISTORY OF PRESENT ILLNESS: This gentleman is not doing well. He is requiring more oxygen. He is on BiPAP nearly all the time. He has not been febrile. PHYSICAL EXAMINATION: VITAL SIGNS: Normal. HEENT: Face is slightly flushed. CHEST: Fairly clear on the ventilator bilaterally and anteriorly. HEART: He is in sinus rhythm. ABDOMEN: Soft. IMPRESSION: 1. Acute respiratory distress syndrome. 2. COVID-19. 3. Cirrhosis. 4. Alcoholism. PLAN: 1. Continue to follow with Infectious Disease and Pulmonology. His picture seems to be deteriorating. Chest x-ray is worsening. 2. Continue with ICU management. MMODL / IJN: [id number] /
--- NOTE | 2022-04-07 08:18 | PN ---
PROGRESS NOTE DATE OF SERVICE: 04/05/2022 CHIEF COMPLAINT: COVID-related pneumonia and ARDS. HISTORY OF PRESENT ILLNESS: The patient continues to struggle. Chest x-ray has not improved. He remains quite hypoxic. He is on BiPAP most of the time. He may need to be intubated eventually. PHYSICAL EXAMINATION: VITAL SIGNS: Presently normal. CHEST: Breath sounds are heard bilaterally. CARDIAC: Normal. IMPRESSION: 1. Acute respiratory distress syndrome. 2. COVID-related pneumonia. 3. Alcoholism. 4. Cirrhosis. PLAN: No change in management from my perspective. The prognosis is poor. MMODL / IJN: [id number] /
--- NOTE | 2022-04-07 08:39 | PN ---
PROGRESS NOTE CHIEF COMPLAINT: Acute respiratory distress. HISTORY OF PRESENT ILLNESS: This gentleman continues to do poorly. He is on BiPAP. He has not been intubated up to this point. PHYSICAL EXAMINATION: LUNGS: Breath sounds are heard bilaterally. VITAL SIGNS: Normal. IMPRESSION: 1. Acute respiratory distress syndrome. 2. COVID-related pneumonia. 3. Alcoholism. PLAN: Continue to follow with Pulmonology. He continues to do poorly. His family members have been contacted and have been in to see him. MMODL / IJN: [id number] /
--- NOTE | 2022-04-08 04:45 | DS ---
DISCHARGE SUMMARY CHIEF COMPLAINT: Shortness of breath and pneumonitis with acute alcohol intoxication and DTs. HISTORY OF PRESENT ILLNESS AND PHYSICAL EXAMINATION: Details of this man's history and physical can be found in the initial workup. LABORATORY STUDIES: While he was in the hospital, he had laboratory studies, details of which can be found in the laboratory section of his chart. COURSE IN THE HOSPITAL: After admission, he was placed on bedrest, started on intravenous fluids and treated for DTs. He complained of a little bit of chest pain on and off, which is usual for him. His liver enzymes were elevated slightly as well, which was expected with his alcoholism. However, he started to develop more lung congestion and shortness of breath. He was diagnosed as having pneumonia, and he seemed to slowly deteriorate. COVID-19 test was obtained and it was positive. As he became more dyspneic, he became hypotensive and more lethargic, and he was moved to ICU. There, he received appropriate treatment for COVID-related pneumonitis and still continued to deteriorate. He was placed on high-flow nasal O2 and eventually on BiPAP and spend more and more time on these devices. He was followed and managed by Pulmonology. He came to the point where intubation was thought to be possibly family members were found and a sister made the determination that he should be kept comfortable and he in the evening of . FINAL DIAGNOSES: 1. COVID pneumonia. 2. Adult respiratory distress syndrome. 3. Chronic alcoholism. 4. Cirrhosis. 5. Alcoholic hepatitis. 6. Hypertension. OPERATIONS: None. CONSULTATIONS: Pulmonology. CONDITION: He is not improved. He . MMODL / IJN: [id number] /
--- NOTE | 2022-04-18 06:03 | MISC ---
MISCELLANOUS REPORT Acute systolic and diastolic heart failure. Anders Aguilar has viral pneumonia, COVID. MMODL / IJN: [id number] /
--- NOTE | 2022-04-18 06:10 | MISC ---
MISCELLANOUS REPORT He has acute alcoholism. Renal failure, acute. MMODL / IJN: [id number] /
--- NOTE | 2022-04-21 16:12 | CDI ---
Documentation Clarification Form Date: 04/21/2022 04:00:31 PM From: Geno Murrell RN, CCDS Email: [email or web address] Admit Date: 03/23/2022 08:45:00 AM Patient Name: Anders Aguilar Visit Number: [id number] Discharge Date: 04/06/2022 10:35:00 PM ATTENTION: The Clinical Documentation Specialists (CDI) and [facility] Coding Staff appreciate your assistance in clarifying documentation. Please respond to the clarification below the line at the bottom and electronically sign. The CDI & [facility] Coding staff will review the response and follow-up if needed. Please note: Queries are made part of the Legal Health Record. If you have any questions, please contact the author of this message via ITS. Dr. Doug Beck Positive Covid infection is documented starting 04/01. The patient was admitted on 03/23. For each diagnosis, documentation must be clear to determine if the condition was present at the time of the patients inpatient admission or developed during the hospital stay. Additional clarification regarding the Covid-19/Pneumonia diagnosis is requested. History/Risk Factors: paroxysmal atrial fibrillation on Xarelto, alcohol abuse, hypertension, type 2 diabetes mellitus, hyperlipidemia, COPD. Presents to the ER for evaluation of left-sided chest pain, increasing shortness of breath and cough. Symptoms had been going on for a few days before presentation to the hospital. The patient apparently did have a recent mission to the hospital with similar symptoms and was evaluated by Cardiology services on March 02, 2022. Clinical Indicators: 03/21 Covid test was not detected. 03/29 Covid test was detected. 03/29 ID: "patient did have a worsening of his respiratory status with right- sided infiltrate, concern for possible nosocomial/aspiration pneumonia. Sputum has been obtained which is currently pending. Patient did have repeat blood culture as well as covid 19 testing on which is currently pending." 04/01 Consult: "Patient initially was tested and negative for COVID-19 infection, patient retested and now positive." 04/06 Pulmonary: Currently he is being treated for a combination of aspiration pneumonia and Covid 19 pneumonia with secondary hypoxic respiratory failure. Treatment: Bipap. IV Vancomycin on 03/22. IV Zosyn 03/27-04/02. IV Solumedrol 04/02-04/06. Flovent inhaler 03/31-04/06. IV Ceftriaxone on 03/21. IV Azithromycin on 03/21. Duonebs 03/22-03/31. IV Decadron on 04/01. Definition of Present on Admission (POA): A diagnosis present at the time the order for admission to inpatient status was written. Please clarify if Covid-19/Pneumonia was POA [ ] Y = Yes, the condition was present at the time of the order for inpatient admission. [ ] N = No, the condition was not present at the time of the order for inpatient admission. [ ] W = Clinically undetermined if the condition was present at the time of the order for inpatient admission. MTDD
--- NOTE | 2022-05-25 10:34 | CDI ---
Documentation Clarification Form Date: 05/25/2022 9:48:38 AM From: Geno Murrell RN, CCDS Email: [email or web address] Admit Date: 03/23/2022 8:45:00 AM Patient Name: Anders Aguilar Visit Number: [id number] Discharge Date: 04/06/2022 10:35:00 PM ATTENTION: The Clinical Documentation Specialists (CDI) and [facility] Coding Staff appreciate your assistance in clarifying documentation. Please respond to the clarification below the line at the bottom and electronically sign. The CDI & [facility] Coding staff will review the response and follow-up if needed. Please note: Queries are made part of the Legal Health Record. If you have any questions, please contact the author of this message via ITS. Dr. Jered Hankins Positive Covid infection is documented starting 04/01. The patient was admitted on 03/23. For each diagnosis, documentation must be clear to determine if the condition was present at the time of the patients inpatient admission or developed during the hospital stay. Additional clarification regarding the Covid-19/Pneumonia diagnosis is requested. History/Risk Factors: paroxysmal atrial fibrillation on Xarelto, alcohol abuse, hypertension, type 2 diabetes mellitus, hyperlipidemia, COPD. Presents to the ER for evaluation of left-sided chest pain, increasing shortness of breath and cough. Symptoms had been going on for a few days before presentation to the hospital. The patient apparently did have a recent admission to the hospital with similar symptoms and was evaluated by Cardiology services on March 02, 2022. Clinical Indicators: 03/21 Covid test was not detected. 03/29 Covid test was detected. 03/29 ID: "patient did have a worsening of his respiratory status with right- sided infiltrate, concern for possible nosocomial/aspiration pneumonia. Sputum has been obtained which is currently pending. Patient did have repeat blood culture as well as covid 19 testing on which is currently pending." 04/01 Consult: "Patient initially was tested and negative for COVID-19 infection, patient retested and now positive." 04/06 Pulmonary:Currently he is being treated for a combination of aspiration pneumonia and Covid 19 pneumonia with secondary hypoxic respiratory failure. Treatment: Bipap. IV Vancomycin on 03/22. IV Zosyn 03/27-04/02. IV Solumedrol 04/02-04/06. Flovent inhaler 03/31-04/06. IV Ceftriaxone on 03/21. IV Azithromycin on 03/21. Duonebs 03/22-03/31. IV Decadron on 04/01. Definition of Present on Admission (POA): A diagnosis present at the time the order for admission to inpatient status was written. Please clarify if Covid-19/Pneumonia was POA [ ] Y = Yes, the condition was present at the time of the order for inpatient admission. [ x ] N = No, the condition was not present at the time of the order for inpatient admission. [ ] W = Clinically undetermined if the condition was present at the time of the order for inpatient admission MTDD
--- NOTE | 2022-05-29 11:04 | MISC ---
MISCELLANOUS REPORT This is how condition was present at the time of admission. MMODL / IJN: [id number] /
== END 2022-04-06 22:35 | disposition expired | DRG 177 ==
LOC: EC 06:51 → 6NMEDSUR 17:21 → OBSVTOIN 03-23 08:45 → 2SICU 03-27 12:00
PROVIDERS: ADMIT Family Medicine; ATTEND Family Medicine
PROC: 5A0935A Assistance with Respiratory Ventilation, Less than 24 Consecutive Hours, High Flow/Velocity Cannula (ICD-10-PCS; principal; 2022-03-27)
PROC: 5A09557 Assistance with Respiratory Ventilation, Greater than 96 Consecutive Hours, Continuous Positive Airway Pressure (ICD-10-PCS; 2022-03-27)
PROC: 02HV33Z Insertion of Infusion Device into Superior Vena Cava, Percutaneous Approach (ICD-10-PCS; 2022-04-03)
PROC: 3E0436Z Introduction of Nutritional Substance into Central Vein, Percutaneous Approach (ICD-10-PCS; 2022-04-03)
DX: U07.1 COVID-19 (principal); I50.41 Acute combined systolic (congestive) and diastolic (congestive) heart failure; J80 Acute respiratory distress syndrome; J69.0 Pneumonitis due to inhalation of food and vomit; J12.82 Pneumonia due to coronavirus disease 2019; I85.11 Secondary esophageal varices with bleeding; D61.818 Other pancytopenia; R78.81 Bacteremia; N17.9 Acute kidney failure, unspecified; K76.6 Portal hypertension; E87.0 Hyperosmolality and hypernatremia; I48.20 Chronic atrial fibrillation, unspecified; R04.2 Hemoptysis; J44.0 Chronic obstructive pulmonary disease with (acute) lower respiratory infection; I11.0 Hypertensive heart disease with heart failure; K70.10 Alcoholic hepatitis without ascites; F10.229 Alcohol dependence with intoxication, unspecified; E11.9 Type 2 diabetes mellitus without complications; F32.A Depression, unspecified; I34.0 Nonrheumatic mitral (valve) insufficiency; Z66 Do not resuscitate; Z51.5 Encounter for palliative care; I95.9 Hypotension, unspecified; K70.30 Alcoholic cirrhosis of liver without ascites; F41.9 Anxiety disorder, unspecified; E78.5 Hyperlipidemia, unspecified; B95.7 Other staphylococcus as the cause of diseases classified elsewhere; I48.0 Paroxysmal atrial fibrillation; G89.29 Other chronic pain; H91.90 Unspecified hearing loss, unspecified ear; E86.9 Volume depletion, unspecified; R00.0 Tachycardia, unspecified; Z86.711 Personal history of pulmonary embolism; Z86.73 Personal history of transient ischemic attack (TIA), and cerebral infarction without residual deficits; Z86.14 Personal history of Methicillin resistant Staphylococcus aureus infection; Z79.899 Other long term (current) drug therapy; Z79.01 Long term (current) use of anticoagulants; Z91.048 Other nonmedicinal substance allergy status; Z91.040 Latex allergy status; Z88.8 Allergy status to other drugs, medicaments and biological substances; Z91.012 Allergy to eggs; Z91.018 Allergy to other foods
CPT/HCPCS: 36415; 36573; 71045; 71046; 74176; 80048; 80053; 81003; 82330; 83036; 83615; 83690; 83735; 83880; 84100; 84132; 84145; 84478; 84484; 85025; 85027; 85379; 85610; 85652; 85730; 86140; 87040; 87070; 87205; 87502; 87635; 93308; 94002; 94640; 94660; 94760; 96365; 96368; 96375; 99285